=== PATIENT | male | born 1935 | race Caucasian/White ===

== ENCOUNTER 2017-12-07 09:47 | Emergency (ER) | payer MEDICARE, SELFPAY ==
[2017-12-07 09:55] VITALS: BP 156/90; PULSE 77; RESP 16; TEMP 36.6; O2SAT 97
--- NOTE | 2017-12-07 10:02 | NUR.NOTE ---
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, rx prescribed by PCP for itchy scalp was fluocinolone 0.01% solution- pt never picked up
--- NOTE | 2017-12-07 10:09 | ED.GENADUL ---
Disposition Clinical Impression: Scaly patch rash, Atopic dermatitis Disposition: HOME Condition: Good Instructions: Acute Rash (ED) Additional Instructions: Please take the medication as directed. Please follow-up as soon as possible with your egg candler for the lesion on your left scalp. Please stop itching her left scalp. If you notice any worsening of your symptoms, or any new symptoms such as vomiting, diarrhea, fever, chills, shortness of breath, chest pain, numbness, weakness, or fainting , please return immediately to the emergency department for reevaluation. Please follow up with your primary care provider as soon as possible for reassessment and reevaluation. As always, it was a pleasure participating in your medical care today. Prescriptions: Hydrocortisone [Hydrocortisone 2.5% Lotion] 60 ml TP BID 14 Days #1 btl Referrals: Ashkan Eason MD [MD CONSULTING PHYSICIAN] - Medical Decision Making - Medical Decision Making This is a pleasant 82-year-old male who presents for rash on his left temporal region. It is been present for the last month, he was seen by his PCP a month ago for this and prescribed a steroid cream but it was too expensive so he did not take it. Currently the patient's symptoms to look like a very mild atopic dermatitis. There is one lesion though by his left ear that is concerning for basal cell carcinoma. We will give the patient a cheaper slightly lower concentration of steroid cream for topical application, and also dermatology referral for biopsy and evaluation of potential basal cell carcinoma. No evidence of shingles, significant bacterial superinfection, or other abnormalities. No signs of Hernández's palsy. Patient will be discharged home with close follow-up with his PCP. I have extensively reviewed the treatment plan and discharge instructions with the patient. I have addressed all patient concerns at this time. The patient was made aware of what symptoms to monitor for that would warrant a return to the emergency department. Discussed the plan with the patient, they demonstrate verbal understanding and agreement with our assessment and plan at this time. History of Present Illness - General Chief complaint: RashLesion Stated complaint: HEAD PAIN Time Seen by Provider: 12/07/17 10:08 - History of Present Illness Initial comments: This is an 82-year-old male with a past medical history of diabetes, hypertension, hyperlipidemia, myocardial infarction Plavix use. He presents today for evaluation of rash. He states that one month ago he was seen by his primary care provider for small amount of itching on his temporal region. He is prescribed a steroid ointment, however it was $120 and he did not take it secondary to the walls. His symptoms have continued over the past month. They have been mild in nature. He mainly complains of itchiness over the left temporal scalp with small little bumps. There is also a small lesion on the temporal scalp just above the ear, which she states has been having some discharge lately. He denies any fever, chills, vision changes, headache, chest pain shortness of breath vomiting diarrhea numbness tingling or weakness. He has no additional complaints at this time. - Related Data metFORMIN [Glucophage] 500 mg PO BID 09/02/12 Aspirin [Aspir-Low] 81 mg PO DAILY 09/05/15 Ibuprofen 600 - 800 mg PO PRN PRN 09/05/15 Tamsulosin HCl 0.4 mg PO DAILY #90 tab-cap 10/17/15 Clopidogrel Bisulfate [Plavix] 75 mg PO DAILY 04/12/17 Lisinopril 20 mg PO DAILY 04/12/17 Metoprolol [Lopressor] 100 mg PO DAILY 04/12/17 Guaifenesin/Codeine Phosphate [Codeine-Guaifen 10-100 mg/5 ml] 5 ml PO Q4H PRN #120 liquid 05/17/17 Atorvastatin [Lipitor] 40 mg PO DAILY 09/20/17 Doxycycline Hyclate 100 mg PO BID #14 tablet 09/20/17 Erythromycin Ophth Oint [Ilotycin Ophth Oint] 1 gm OP DIRECTED #1 tube 09/20/17 Benzonatate [Tessalon Perles] 200 mg PO TID PRN #10 cap 10/11/17 Hydrocortisone [Hydrocortisone 2.5% Lotion] 60 ml TP BID 14 Days #1 btl 12/07/17 Allergies Allergy/AdvReac Type Severity Reaction Status Date / Time No Known Allergies Allergy Unverified 12/07/17 09:57 Review of Systems Other: 10 point review of systems was performed, pertinent positives and negatives are noted in the history of present illness. Past Medical History - Past Medical History Medical history: diabetes, hyperlipidemia, hypertension Surgical history: herniorraphy, vascular surgery (AAA stent) - Social History Alcohol use: none Drug use: none General Exam - Other Other exam information: 1.Const: Well-nourished, Well-developed, appearing stated age 2.Eyes: PERRL, no conjunctival injection, and symmetrical lids. 3.ENT: Atraumatic external nose and ears. Moist MM. Neck: Symmetric, trachea midline, No thyromegaly. Tympanic membranes are normal. No pain or tenderness. 4.CVS: +S1/S2, No murmurs or gallops. Peripheral pulses 2+ and equal in all extremities. Brisk capillary refill in all extremities. 5.RESP: Unlabored respiratory effort. Clear to auscultation bilaterally. No wheezes rales or rhonchi 6.GI: Soft, Nontender/Nondistended, No hepatosplenomegaly. No guarding or rebound. 7.MSK: Normocephalic/Atraumatic, Extremities w/o deformity or ttp No cyanosis or clubbing, Normal movement of all extremities 8.Skin: Warm, Dry. Patient's left scalp over the temporal region demonstrates very minimal redness. No significant scaling. No evidence suggestive of a severe fungal infection. There are some very small bumps and lesions in this area, none of which are draining or erythematous. No discharge. These bumps are roughly 2-3 mm on palpation. He has roughly 3-4 total. He also does have a small lesion on the left temporal region just superior to the left ear which does appear scabbed, with no drainage at this time. Symptoms are concerning for basal cell carcinoma. Patient demonstrates no evidence of shingles, vesicles, staph scalded skin syndrome, or other abnormalities. 9.Neuro: supervisor pre wave II-XII grossly intact. Sensation grossly intact, no focal neurologic deficits. 10.Psych: (AAO) x3. Appropriate mood and affect Course Vital Signs - 24 hr 12/07/17 09:55 Temperature 36.6 C Pulse 77 Respiratory 16 Rate Blood Pressure 156/90 Pulse Oximetry 97
--- NOTE | 2017-12-07 10:12 | ED.GENADUL_ITS ---
Disposition Clinical Impression: Scaly patch rash, Atopic dermatitis Disposition: HOME Condition: Good Instructions: Acute Rash (ED) Additional Instructions: Please take the medication as directed. Please follow-up as soon as possible with your horse stud worker for the lesion on your left scalp. Please stop itching her left scalp. If you notice any worsening of your symptoms, or any new symptoms such as vomiting, diarrhea, fever, chills, shortness of breath, chest pain, numbness, weakness, or fainting , please return immediately to the emergency department for reevaluation. Please follow up with your primary care provider as soon as possible for reassessment and reevaluation. As always, it was a pleasure participating in your medical care today. Prescriptions: Hydrocortisone [Hydrocortisone 2.5% Lotion] 60 ml TP BID 14 Days #1 btl Referrals: Ashkan Eason MD [MD CONSULTING PHYSICIAN] - Medical Decision Making - Medical Decision Making This is a pleasant 82-year-old male who presents for rash on his left temporal region. It is been present for the last month, he was seen by his PCP a month ago for this and prescribed a steroid cream but it was too expensive so he did not take it. Currently the patient's symptoms to look like a very mild atopic dermatitis. There is one lesion though by his left ear that is concerning for basal cell carcinoma. We will give the patient a cheaper slightly lower concentration of steroid cream for topical application, and also dermatology referral for biopsy and evaluation of potential basal cell carcinoma. No evidence of shingles, significant bacterial superinfection, or other abnormalities. No signs of Hernández's palsy. Patient will be discharged home with close follow-up with his PCP. I have extensively reviewed the treatment plan and discharge instructions with the patient. I have addressed all patient concerns at this time. The patient was made aware of what symptoms to monitor for that would warrant a return to the emergency department. Discussed the plan with the patient, they demonstrate verbal understanding and agreement with our assessment and plan at this time. History of Present Illness - General Chief complaint: RashLesion Stated complaint: HEAD PAIN Time Seen by Provider: 12/07/17 10:08 - History of Present Illness Initial comments: This is an 82-year-old male with a past medical history of diabetes, hypertension, hyperlipidemia, myocardial infarction Plavix use. He presents today for evaluation of rash. He states that one month ago he was seen by his primary care provider for small amount of itching on his temporal region. He is prescribed a steroid ointment, however it was $120 and he did not take it secondary to the walls. His symptoms have continued over the past month. They have been mild in nature. He mainly complains of itchiness over the left temporal scalp with small little bumps. There is also a small lesion on the temporal scalp just above the ear, which she states has been having some discharge lately. He denies any fever, chills, vision changes, headache, chest pain shortness of breath vomiting diarrhea numbness tingling or weakness. He has no additional complaints at this time. - Related Data metFORMIN [Glucophage] 500 mg PO BID 09/02/12 Aspirin [Aspir-Low] 81 mg PO DAILY 09/05/15 Ibuprofen 600 - 800 mg PO PRN PRN 09/05/15 Tamsulosin HCl 0.4 mg PO DAILY #90 tab-cap 10/17/15 Clopidogrel Bisulfate [Plavix] 75 mg PO DAILY 04/12/17 Lisinopril 20 mg PO DAILY 04/12/17 Metoprolol [Lopressor] 100 mg PO DAILY 04/12/17 Guaifenesin/Codeine Phosphate [Codeine-Guaifen 10-100 mg/5 ml] 5 ml PO Q4H PRN # 120 liquid 05/17/17 Atorvastatin [Lipitor] 40 mg PO DAILY 09/20/17 Doxycycline Hyclate 100 mg PO BID #14 tablet 09/20/17 Erythromycin Ophth Oint [Ilotycin Ophth Oint] 1 gm OP DIRECTED #1 tube Benzonatate [Tessalon Perles] 200 mg PO TID PRN #10 cap 10/11/17 Hydrocortisone [Hydrocortisone 2.5% Lotion] 60 ml TP BID 14 Days #1 btl Allergies Allergy/AdvReac Type Severity Reaction Status Date / Time No Known Allergies Allergy Unverified 12/07/17 09:57 Review of Systems Other: 10 point review of systems was performed, pertinent positives and negatives are noted in the history of present illness. Past Medical History - Past Medical History Medical history: diabetes, hyperlipidemia, hypertension Surgical history: herniorraphy, vascular surgery (AAA stent) - Social History Alcohol use: none Drug use: none General Exam - Other Other exam information: 1.Const: Well-nourished, Well-developed, appearing stated age 2.Eyes: PERRL, no conjunctival injection, and symmetrical lids. 3.ENT: Atraumatic external nose and ears. Moist MM. Neck: Symmetric, trachea midline, No thyromegaly. Tympanic membranes are normal. No pain or tenderness. 4.CVS: +S1/S2, No murmurs or gallops. Peripheral pulses 2+ and equal in all extremities. Brisk capillary refill in all extremities. 5.RESP: Unlabored respiratory effort. Clear to auscultation bilaterally. No wheezes rales or rhonchi 6.GI: Soft, Nontender/Nondistended, No hepatosplenomegaly. No guarding or rebound. 7.MSK: Normocephalic/Atraumatic, Extremities w/o deformity or ttp No cyanosis or clubbing, Normal movement of all extremities 8.Skin: Warm, Dry. Patient's left scalp over the temporal region demonstrates very minimal redness. No significant scaling. No evidence suggestive of a severe fungal infection. There are some very small bumps and lesions in this area, none of which are draining or erythematous. No discharge. These bumps are roughly 2-3 mm on palpation. He has roughly 3-4 total. He also does have a small lesion on the left temporal region just superior to the left ear which does appear scabbed, with no drainage at this time. Symptoms are concerning for basal cell carcinoma. Patient demonstrates no evidence of shingles, vesicles, staph scalded skin syndrome, or other abnormalities. 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 Sensation grossly intact, no focal neurologic deficits. 10.Psych: (AAO) x3. Appropriate mood and affect Course Vital Signs - 24 hr 12/07/17 09:55 Temperature 36.6 C Pulse 77 Respiratory 16 Rate Blood Pressure 156/90 Pulse Oximetry 97
[2017-12-07 10:22] VITALS: BP 156/90; PULSE 77; RESP 16; TEMP 36.6; O2SAT 97
--- NOTE | 2017-12-08 10:22 | PDOC.ERCMPRO ---
Care Management Progress Note 12/08-Dr. Stafford requested assistance with a dermatology (Dr. Eason) appt in one month for left temporal lesion. Referral faxed to [facility] (Dr. Moise is PCP) this am, requesting their practice to refer to Dr. Eason.
== END 2017-12-07 10:22 | disposition home or self-care (01) ==
PROVIDERS: Emergency Provider Student in an Organized Health Care Education/Training Program; PCP Family Medicine
DX: L98.9 Disorder of the skin and subcutaneous tissue, unspecified (principal); L20.9 Atopic dermatitis, unspecified; E11.9 Type 2 diabetes mellitus without complications; Z79.84 Long term (current) use of oral hypoglycemic drugs; I10 Essential (primary) hypertension
CPT/HCPCS: 99283 ×2

== ENCOUNTER 2018-05-11 17:34 | Outpatient (REF) | payer MEDICARE, SELFPAY ==
[2018-05-11 18:59] LABS: HCT 44.2 % (40.0-50.0); HGB 14.6 g/dL (13.5-17.5); Mean Corpuscular Hemoglobin 30.3 pg (27.0-33.0); Mean Corpuscular Volume 91.7 fL (80-95); Mean Platelet Volume 11.3 fL (8.0-11.0); Platelet Count 198 x1000/uL (130-400); RBC 4.82 m/cumm (4.50-6.00); RBC Distribution Width 11.9 % (11.8-14.1); White Blood Cell Count 9.13 k/cumm (4.4-10.8)
[2018-05-11 19:14] LABS: ALT 55 U/L (12-78); AST 44 U/L (15-37); Albumin 3.7 g/dL (3.4-5.0); Alkaline Phosphatase 99 U/L (46-116); Anion Gap 9.9 mmol/L (3-11); BUN 25 mg/dL (7-18); Bilirubin, Total 0.9 mg/dL (0.2-1.0); CO2 30.1 mmol/L (21.0-32.0); CREATININE 1.69 mg/dL (0.70-1.30); Calcium 9.4 mg/dL (8.5-10.1); Chloride 102 mmol/L (98-107); Estimated GFR 39.14 (mL/min/1.73m2); Glucose 133 mg/dL (70-100); Magnesium 1.6 mg/dL (1.8-2.4); PHOSPHORUS 3.8 mg/dL (2.6-4.7); Potassium 4.3 mmol/L (3.5-5.1); Sodium 142 mmol/L (136-145)
[2018-05-11 19:20] LABS: COMMENT (LAB VIEW ONLY) 147.65 mg/dL
[2018-05-13 11:37] LABS: Parathyroid Hormone,Intact 108 pg/ml (19-88)
== END 2018-05-11 17:54 ==
LOC: NCHCN 17:34
PROVIDERS: PCP Family Medicine; Visit Provider Family Medicine
DX: E11.9 Type 2 diabetes mellitus without complications (principal); N18.3 Chronic kidney disease, stage 3 (moderate); K76.0 Fatty (change of) liver, not elsewhere classified; I25.5 Ischemic cardiomyopathy
CPT/HCPCS: 80053; 85027; 82043; 82570; 83735; 83970; 84100

== ENCOUNTER 2018-07-18 06:43 | Inpatient (IN) | payer MEDICARE, SELFPAY ==
[2018-07-18] VITALS (21 sets, daily range): BP systolic 123–209; BP diastolic 66–103; PULSE 47–58; RESP 13–20; TEMP 35.8–36.8; O2SAT 94–99
--- NOTE | 2018-07-18 06:53 | W.ED.GENAD ---
Discharge Plan Disposition Patient Disposition: [facility] INPATIENT Condition: Serious Discharge Details Chief Complaint: Abd Prob Clinical Impression: Diverticulitis of intestine with abscess Reason For Visit: DIVERTICULAR ABSCESS Admit Date/Time: 07/18/18 10:40 Admit Provider: Precious Quijano Attending Provider: Precious Quijano Primary Care Provider: Rolando Moise ED Provider: Han Whipple Discharge Data Discharge Date/Time-TO BE ENTERED AT DEPARTURE: 07/18/18 11:55 Medical Decision Making <Emanuel Osei MD - Last Filed: 07/20/18 11:58> Patient presents with worsening abdominal pain over the course of a week. He has distention and hyperactive bowel sounds. He does report passing gas and not having vomiting. He is diffusely tender on exam. He has a history of stented AAA repair but I doubt this is his issue given the timeframe. Partial bowel obstruction seems to be the most likely etiology. IV established and laboratory studies obtained. CT scan of the abdomen pelvis with IV and p.o. contrast ordered. Patient signed out to Dr. Whipple. <Han Whipple MD - Last Filed: 07/18/18 10:45> CT interpreted by radiology: IMPRESSION: 1. Diverticulosis and Bowel wall thickening along the rectosigmoid colon. Mild pericolonic inflammatory changes. 3.5 cm fluid collection within the colon consistent with diverticular abscess (4:62 No evidence of perforation or bleeding. Findings consistent with acute diverticulitis. 2. Status post aortic iliac bypass. [place] aorta 8.1 x 6.7 cm. 3. Broad-based disc bulge, facet hypertrophy, and ligament hypertrophy at L4/L5 consistent with spinal stenosis. Recommend MRI for further evaluation. Labs reviewed and leukocytosis and mild elevation of lactic acid noted. Patient was given IV fluid bolus. Hypomag noted. Mag 1g ordered. Results reviewed with the patient. I have ordered. Flagyl and Cipro IV. I called and spoke with Dr. Renae, I reviewed the case presentation and ED course as well as diagnostics with Dr. Renae, she plans to admit the patient and patient will likely need transfer to [facility] for interventional radiology draining. I called [facility] and no beds available for transfer. Patient to be admitted to [facility]. Bridging orders placed to floor. HPI <Emanuel Osei MD - Last Filed: 07/20/18 11:58> General Mode of arrival: ambulatory. Date/Time Provider Initiated Documentation: 07/18/18 06:51. Limitations to Documentation: no limitations. Information obtained by: patient. HPI Narrative: Patient presents with complaints of abdominal pain. He reports pain for over a week. It has been getting progressively worse. It seems more right-sided than left. His abdomen is becoming distended. He is passing gas but has not had a bowel movement in days. His appetite is okay. He is eating and drinking. He has not had vomiting. He has no difficulty urinating. He has had no fever. Related Data Home Medications Medication Instructions Recorded Confirmed metformin 500 mg PO BID 09/02/12 07/18/18 aspirin [Aspir-Low] 81 mg PO DAILY 09/05/15 07/18/18 ibuprofen 600 - 800 mg PO PRN PRN 09/05/15 07/18/18 tamsulosin 0.4 mg PO DAILY #90 tab-cap 10/17/15 07/18/18 clopidogrel [Plavix] 75 mg PO DAILY 04/12/17 07/18/18 lisinopril 20 mg PO DAILY 04/12/17 07/18/18 metoprolol tartrate 100 mg PO DAILY 04/12/17 07/18/18 atorvastatin [Lipitor] 40 mg PO DAILY 09/20/17 07/18/18 hydrocortisone 60 ml TOPICAL BID 14 Days #1 btl 12/07/17 07/18/18 Previous Rx's Medication Instructions Recorded hydrocortisone 60 ml TOPICAL BID 14 Days #1 btl 12/07/17 Allergies Allergy/AdvReac Type Severity Reaction Status Date / Time No Known Allergies Allergy Unverified 07/18/18 06:58 Review of Systems <Emanuel Osei MD - Last Filed: 07/20/18 11:58> Constitutional Denies chills, Denies fever(s), Denies headache(s), Denies poor appetite and Denies weakness Eyes Denies change in vision and Denies eye pain ENT Denies otalgia, Denies facial pain, Denies headache(s), Denies neck pain and Denies sore throat Cardiovascular Denies chest pain, Denies diaphoresis, Denies syncope, Denies edema and Denies dyspnea Respiratory Denies cough and Denies dyspnea Gastrointestinal Reports abdominal pain, Reports constipation, Denies diarrhea, Denies nausea and Denies vomiting Genitourinary Denies hematuria, Denies dysuria and Denies flank pain Musculoskeletal Denies back pain and Denies neck pain Integumentary/Breasts Denies rash Neurologic Denies syncope, Denies headache(s), Denies focal weakness and Denies weakness PFSH <Emanuel Osei MD - Last Filed: 07/20/18 11:58> Medical History Renal insufficiency (Chronic) Diverticulitis of large intestine with abscess (Acute) Phimosis (Acute) Diabetes mellitus (Chronic) HTN (hypertension) (Chronic) Hypercholesterolemia (Chronic) Myocardial infarct (Chronic) Surgical History S/P left hemicolectomy (Acute ~07/19/18) H/O phimosis (Acute) History of endovascular stent graft for abdominal aortic aneurysm (AAA) (Chronic) History of heart artery stent (Chronic) S/P hernia repair (Inactive) Social History Smoking/Tobacco Use Status: Former Tobacco Use Quit Date: 01/03/17 Tobacco: How many years used: 60 Alcohol Intake: current Alcohol Intake frequency: 0-2 drinks per day Alcohol type: beer Drug use: Never Substance use type: does not use Do you feel safe at home: Yes Do you feel safe in your relationship?: Yes Exam <Emanuel Osei MD - Last Filed: 07/20/18 11:58> Const General: cooperative, comfortable and no acute distress Orientation: alert and oriented x3 HENMT Head: normocephalic and atraumatic Mouth: moist mucous membranes Neck Neck: trachea midline and supple Resp Effort & Inspection: normal respiratory effort Auscultation: clear to auscultation bilaterally Cardio Rate: bradycardic Rhythm: regular rhythm Heart Sounds: S1 normal and S2 normal GI Inspection: distended Palpation: soft and tender (diffusely tender throughout) Percussion: tympanic to percussion Auscultation: hyperactive bowel sounds Male General Exam: No hernia Skin Rashes: no rashes Neuro General: alert, oriented x3, no focal motor deficits and CN's II-XI intact bilaterally Extrem General: no clubbing, cyanosis or edema Sign Out <Emanuel Osei MD - Last Filed: 07/20/18 11:58> Sign Out Data: Sign Out Comment: Signed out to Dr. Whipple to follow up on labs, scan and disposition. Last updated by Emanuel Osei MD at 07/18/18 08:32
--- NOTE | 2018-07-18 06:56 | ED.GENADUL_ITS ---
Discharge Plan Disposition Patient Disposition: [facility] INPATIENT Condition: Serious Discharge Details Chief Complaint: Abd Prob Clinical Impression: Diverticulitis of intestine with abscess Reason For Visit: DIVERTICULAR ABSCESS Admit Date/Time: 07/18/18 10:40 Admit Provider: Precious Quijano Attending Provider: Precious Quijano Primary Care Provider: Rolando Moise ED Provider: Han Whipple Discharge Data Discharge Date/Time-TO BE ENTERED AT DEPARTURE: 07/18/18 11:55 Medical Decision Making <Emanuel Osei MD - Last Filed: 07/20/18 11:58> Patient presents with worsening abdominal pain over the course of a week. He has distention and hyperactive bowel sounds. He does report passing gas and not having vomiting. He is diffusely tender on exam. He has a history of stented AAA repair but I doubt this is his issue given the timeframe. Partial bowel obstruction seems to be the most likely etiology. IV established and laboratory studies obtained. CT scan of the abdomen pelvis with IV and p.o. contrast ordered. Patient signed out to Dr. Whipple. <Han Whipple MD - Last Filed: 07/18/18 10:45> CT interpreted by radiology: IMPRESSION: 1. Diverticulosis and Bowel wall thickening along the rectosigmoid colon. Mild pericolonic inflammatory changes. 3.5 cm fluid collection within the colon consistent with diverticular abscess (4:62 No evidence of perforation or bleeding. Findings consistent with acute diverticulitis. 2. Status post aortic iliac bypass. [place] aorta 8.1 x 6.7 cm. 3. Broad-based disc bulge, facet hypertrophy, and ligament hypertrophy at L4/L5 consistent with spinal stenosis. Recommend MRI for further evaluation. Labs reviewed and leukocytosis and mild elevation of lactic acid noted. Patient was given IV fluid bolus. Hypomag noted. Mag 1g ordered. Results reviewed with the patient. I have ordered. Flagyl and Cipro IV. I called and spoke with Dr. Renae, I reviewed the case presentation and ED course as well as diagnostics with Dr. Renae, she plans to admit the patient and patient will likely need transfer to [facility] [place] for interventional radiology d raining. I called [facility] and no beds available for transfer. Patient to be admitted to [facility]. Bridging orders placed to floor. HPI <Emanuel Osei MD - Last Filed: 07/20/18 11:58> General Mode of arrival: ambulatory . Date/Time Provider Initiated Documentation: 07/18/18 06:51 . Limitations to Documentation: no limitations . Information obtained by: patient . HPI Narrative: Patient presents with complaints of abdominal pain. He reports pain for over a week. It has been getting progressively worse. It seems more right-sided than left. His abdomen is becoming distended. He is passing gas but has not had a bowel movement in days. His appetite is okay. He is eating and drinking. He has not had vomiting. He has no difficulty urinating. He has had no fever. Related Data Home Medications Medication Instructions Recorded Confirmed metformin 500 mg PO BID 09/02/12 07/18/18 aspirin [Aspir-Low] 81 mg PO DAILY 09/05/15 07/18/18 ibuprofen 600 - 800 mg PO PRN PRN 09/05/15 07/18/18 tamsulosin 0.4 mg PO DAILY #90 tab-cap 10/17/15 07/18/18 clopidogrel [Plavix] 75 mg PO DAILY 04/12/17 07/18/18 lisinopril 20 mg PO DAILY 04/12/17 07/18/18 metoprolol tartrate 100 mg PO DAILY 04/12/17 07/18/18 atorvastatin [Lipitor] 40 mg PO DAILY 09/20/17 07/18/18 hydrocortisone 60 ml TOPICAL BID 14 Days #1 btl 12/07/17 07/18/18 Previous Rx's Medication Instructions Recorded hydrocortisone 60 ml TOPICAL BID 14 Days #1 btl 12/07/17 Allergies Allergy/AdvReac Type Severity Reaction Status Date / Time No Known Allergies Allergy Unverified 07/18/18 06:58 Review of Systems <Emanuel Osei MD - Last Filed: 07/20/18 11:58> Constitutional Denies chills, Denies fever(s), Denies headache(s), Denies poor appetite and Denies weakness Eyes Denies change in vision and Denies eye pain ENT Denies otalgia, Denies facial pain, Denies headache(s), Denies neck pain and Denies sore throat Cardiovascular Denies chest pain, Denies diaphoresis, Denies syncope, Denies edema and Denies dyspnea Respiratory Denies cough and Denies dyspnea Gastrointestinal Reports abdominal pain, Reports constipation, Denies diarrhea, Denies nausea and Denies vomiting Genitourinary Denies hematuria, Denies dysuria and Denies flank pain Musculoskeletal Denies back pain and Denies neck pain Integumentary/Breasts Denies rash Neurologic Denies syncope, Denies headache(s), Denies focal weakness and Denies weakness PFSH <Emanuel Osei MD - Last Filed: 07/20/18 11:58> Medical History Renal insufficiency (Chronic) Diverticulitis of large intestine with abscess (Acute) Phimosis (Acute) Diabetes mellitus (Chronic) HTN (hypertension) (Chronic) Hypercholesterolemia (Chronic) Myocardial infarct (Chronic) Surgical History S/P left hemicolectomy (Acute ~07/19/18) H/O phimosis (Acute) History of endovascular stent graft for abdominal aortic aneurysm (AAA) (Chronic) History of heart artery stent (Chronic) S/P hernia repair (Inactive) Social History Smoking/Tobacco Use Status: Former Tobacco Use Quit Date: 01/03/17 Tobacco: How many years used: 60 Alcohol Intake: current Alcohol Intake frequency: 0-2 drinks per day Alcohol type: beer Drug use: Never Substance use type: does not use Do you feel safe at home: Yes Do you feel safe in your relationship?: Yes Exam <Emanuel Osei MD - Last Filed: 07/20/18 11:58> Const General: cooperative, comfortable and no acute distress Orientation: alert and oriented x3 HENMT Head: normocephalic and atraumatic Mouth: moist mucous membranes Neck Neck: trachea midline and supple Resp Effort & Inspection: normal respiratory effort Auscultation: clear to auscultation bilaterally Cardio Rate: bradycardic Rhythm: regular rhythm Heart Sounds: S1 normal and S2 normal GI Inspection: distended Palpation: soft and tender (diffusely tender throughout) Percussion: tympanic to percussion Auscultation: hyperactive bowel sounds Male General Exam: No hernia Skin Rashes: no rashes Neuro General: alert, oriented x3, no focal motor deficits and CN's II-XI intact bilaterally Extrem General: no clubbing, cyanosis or edema Sign Out <Emanuel Osei MD - Last Filed: 07/20/18 11:58> Sign Out Data: Sign Out Comment: Signed out to Dr. Whipple to follow up on labs, scan and disposition. Last updated by Emanuel Osei MD at 07/18/18 08:32
--- NOTE | 2018-07-18 07:17 | DI.CT_ITS ---
SYMPTOM/DIAGNOSIS: ABD PAIN, DISTENSION ABDOMEN AND PELVIC CT: CT scan of the abdomen and pelvis was performed following the uneventful administration of intravenous contrast material. Comparison examination is 04/12/11. No acute findings are seen in the lung bases. The liver is normal in size. No suspicious hepatic mass is seen. The portal, superior mesenteric and splenic veins are patent. The gallbladder is negative. There is no biliary ductal dilatation. The pancreas, spleen and adrenal glands are unremarkable. The kidneys show normal and symmetric enhancement. There are bilateral renal cysts. No solid renal mass or obstruction. There is a non obstructing calcification in the lower pole of the left kidney. The urinary bladder is intact. The reproductive organs are unremarkable. There is diverticulosis seen in the colon. There is bowel wall thickening and pericolonic inflammatory changes seen in the mid sigmoid colon consistent with acute diverticulitis. There is a 3.5 cm. fluid collection adjacent to this inflamed colon suspicious for an abscess. No free air is seen to suggest perforation. The remainder of the bowel shows no acute abnormality. No findings to suggest an acute appendicitis are present. There is again seen an infrarenal abdominal aortic aneurysm with an endovascular stent in place. The aneurysm measures up to 8.3 cm. in AP diameter. No significant abdominal or pelvic adenopathy is appreciated. Degenerative changes are seen in the spine. The findings include disc bulges at L 3-4 through L 5-S 1 resulting in multi level central spinal canal stenosis which is moderate to severe. IMPRESSION: Findings consistent with acute diverticulitis of the sigmoid colon. No evidence of perforation. There is a 3.5 cm. fluid collection adjacent to the inflamed sigmoid colon suggestive of a diverticular abscess.
[2018-07-18] MEDS: Lactated Ringers 1,000 ML 125 ML IV (07:30)
[2018-07-18 07:35] LABS: Abs Immature Grans 0.03 k/cumm (0.0-0.09); HCT 41.4 % (40.0-50.0); HGB 13.9 g/dL (13.5-17.5); Mean Corp. HGB Concentration 33.6 g/dL (32.0-36.0); Mean Corpuscular Volume 92.2 fL (80-95); Mean Platelet Volume 10.9 fL (8.0-11.0); Platelet Count 176 x1000/uL (130-400); RBC 4.49 m/cumm (4.50-6.00); RBC Distribution Width 11.8 % (11.8-14.1); White Blood Cell Count 14.86 k/cumm (4.4-10.8)
[2018-07-18 07:52] LABS: ALT 26 U/L (12-78); AST 19 U/L (15-37); Albumin 3.3 g/dL (3.4-5.0); Alkaline Phosphatase 125 U/L (46-116); Anion Gap 9.7 mmol/L (3-11); BUN 19 mg/dL (7-18); Bilirubin, Total 0.6 mg/dL (0.2-1.0); CO2 25.3 mmol/L (21.0-32.0); CREATININE 1.47 mg/dL (0.70-1.30); Calcium 8.8 mg/dL (8.5-10.1); Chloride 103 mmol/L (98-107); Estimated GFR 45.98 (mL/min/1.73m2); Glucose 188 mg/dL (70-100); Lipase 135 U/L (73-393); Magnesium 1.5 mg/dL (1.8-2.4); Potassium 3.7 mmol/L (3.5-5.1); Sodium 138 mmol/L (136-145); Total Protein 6.8 g/dL (6.4-8.2)
[2018-07-18 07:58] LABS: Absolute Eosinophil Count 0.74 k/cumm (0.0-0.7); Absolute Lymphocyte Count 1.19 k/cumm (1.2-3.4); Absolute Monocyte Count 1.34 k/cumm (0.11-0.7); Absolute Neutrophil Count 11.59 k/cumm (1.2-6.7); Diff Comment Manual Differential; RBC Morphology Normal
[2018-07-18 08:11] LABS: Lactate-non-spesis 2.3 mmol/l (0.6-1.4)
[2018-07-18] MEDS: MAGNESIUM SULFATE 1 GM/100 ML BAG IVPB (08:32)
[2018-07-18] MEDS: Normal Saline 1,000 ML 1000 ML IV (08:32)
[2018-07-18] MEDS: Omnipaque 350 MG/ML 100 ML BTL IJ (08:38)
[2018-07-18] MEDS: Normal Saline Flush 10 ML SYR IVP (08:38)
--- NOTE | 2018-07-18 09:07 | DI.VRAD_ITS ---
Addendum created by Mary Reyes MD on 07/18/2018 9:08:46 AM EDT THIS REPORT CONTAINS FINDINGS THAT MAY BE CRITICAL TO PATIENT CARE. The findings were verbally communicated via telephone conference with Dr. Whipple at 9:08 AM EDT on 07/18/2018. The findings were acknowledged and understood. Initial report created on 07/18/2018 9:06:58 AM EDT EXAM: CT Abdomen and Pelvis With Contrast EXAM DATE/TIME: 07/18/2018 7:38 AM CLINICAL HISTORY: 82 years old, male; Pain; Abdominal pain; Other: Distension; Patient HX: Abdominal pain/ distension. ; Additional info: Patient refused to answer questions about personal HX. TECHNIQUE: Axial computed tomography images of the abdomen and pelvis with intravenous contrast. All CT scans at this facility use at least one of these dose optimization techniques: automated exposure control; mA and/or kV adjustment per patient size (includes targeted exams where dose is matched to clinical indication); or iterative reconstruction. Coronal and sagittal reformatted images were created and reviewed. CONTRAST: Contrast Material: 100 ml of omnipaque 350; Contrast Route: iv COMPARISON: No relevant prior studies available. FINDINGS: Lower thorax: Coronary artery calcifications may indicate coronary artery disease. There is calcification of the aortic valve annulus. There is calcification of the mitral valve annulus. ABDOMEN: Liver: Normal. No mass. Gallbladder and bile ducts: Normal. No calcified stones. No ductal dilation. Pancreas: Pancreatic atrophy Spleen: Normal. No splenomegaly. Adrenals: Normal. No mass. Kidneys and ureters: Bilateral renal cysts. Largest on the right 17 mm Bilateral renal atrophy Stomach and bowel: Diverticulosis and Bowel wall thickening along the rectosigmoid colon. Mild pericolonic inflammatory changes. 3.5 cm fluid collection within the colon consistent with diverticular abscess (4:62 No evidence of perforation or bleeding. Findings consistent with acute diverticulitis. Appendix: No evidence of appendicitis. PELVIS: Bladder: Unremarkable as visualized. Reproductive: Unremarkable as visualized. ABDOMEN and PELVIS: Intraperitoneal space: Normal. No free air. No significant fluid collection. Bones/joints: No acute fracture. No dislocation. Broad-based disc bulge, facet hypertrophy, and ligament hypertrophy at L4/L5 consistent with spinal stenosis. Soft tissues: Unremarkable. Vasculature: Status post aortic iliac bypass. [place] aorta 8.1 x 6.7 cm. Lymph nodes: Normal. No enlarged lymph nodes. IMPRESSION: 1. Diverticulosis and Bowel wall thickening along the rectosigmoid colon. Mild pericolonic inflammatory changes. 3.5 cm fluid collection within the colon consistent with diverticular abscess (4:62 No evidence of perforation or bleeding. Findings consistent with acute diverticulitis. 2. Status post aortic iliac bypass. [place] aorta 8.1 x 6.7 cm. 3. Broad-based disc bulge, facet hypertrophy, and ligament hypertrophy at L4/L5 consistent with spinal stenosis. Recommend MRI for further evaluation. Dictated and Authenticated by: Mary Reyes MD. Ordering:ROCK Castellanos MD
[2018-07-18] MEDS: CIPROFLOXACIN 400 MG/200 ML BAG 200 MG IVPB ×2 (10:05→21:08)
[2018-07-18] MEDS: MetroNIDAZOLE 500 MG/100 ML BAG 100 MG IVPB ×2 (11:10→19:21)
--- NOTE | 2018-07-18 12:27 | W.PM.HP.N ---
Date of service: 07/18/18 Time of Service: 11:30 Assessment and Plan (1) Diverticulitis of large intestine with abscess: Current visit: Yes Status: Acute A\\ Diverticulitis with 3.5 cm abscess P\\ Discuss case with [place] [facility] [place] Friday IV antibiotics Clear liquids as tolerated IV tylenol and IV morphine for pain as needed Recheck labs in am DVT progilaxis- SCD's and Lovenox Gastric ulcer prophilaxis- Pepcid BID Qualifiers: Diverticulitis bleeding: without bleeding Qualified Code(s): K57.20 - Diverticulitis of large intestine with perforation and abscess without bleeding (2) Diabetes: Current visit: Yes Status: Chronic P\\ Place patient on insulin sliding scale and check blood sugars ACHS Hold Metformin for now Qualifiers: Diabetes mellitus type: type 2 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 use: without termite control service representative use Diabetes mellitus complication status: with kidney complications Diabetes mellitus complication detail: with chronic kidney disease Chronic kidney disease stage: stage 2 (mild) Qualified Code(s): E11.22 - Type 2 diabetes mellitus with diabetic chronic kidney disease; N18.2 - Chronic kidney disease, stage 2 (mild) (3) Hypertension: Current visit: Yes Status: Chronic A\\ Hypertensive with low pulse Normally on Metoprolol 100 mg daily and Lisinopril 20 mg daily Discussed briefly with Hospitalist P\\ Due to low pulse will start with Metoprolol 25 mg BID and slowly titrate up as tolerated to 50 BID Continue Lisinopril Add Amlodipine while in the hospital 5 mg daily Qualifiers: Hypertension type: unspecified Qualified Code(s): I10 - Essential (primary) hypertension (4) Cardiovascular disease: Current visit: Yes Status: Acute A\\ Hx of AAA repair Mild Cardiomyopathy on ECHO in 2016 P\\ Hold Plavix due to potential for procedure [place] [facility] [place] Lovenox 40 mg SQ daily. Switch back to plavix once procedure is done (5) Renal insufficiency: Current visit: Yes Status: Chronic Chronic from looking at his labs. Seems to be at baseline Monitor Cr and BUN Monitor weight History of Present Illness Chief Complaint: LLQ abdominal pain/Constipation Consults Consult date: 07/18/18 Requesting physician: Han Whipple Narrative: Mr. Thompson is a pleasant 82 year old man who started having constipation as well as LLQ pain about 4 weeks ago. he did not go to see his Primary Care Physician. He came to the ER last night due to worsening abdominal pain and constipation. He did have 2 liquid stools once in the ER. Workup in the ER revealed a slight increase in his WBC count, hypertension and CT scan showed Diverticulitis with an abscess. [facility] stated that it was an intraluminal abscess. To my review the abscess was extraluminal. After discussing the findings and treatment plan which would include patient would possible need to be transported [place] [facility] [place], patient and wanted to go to [facility] [place]. Whipple spoke to them and they did not have any beds. This was discussed with patient and his and they agreed to admission here. He denies any chest pain or shortness of breath. He does have a history of heart disease and an endovascular AAA repair. LAst ECHO was in 2017 showed mild cardiomyopathy and EF of 45%. Patient is hypertensive in the ER with a low pulse. Review of Systems Constitutional Denies chills, Denies fever(s) and Denies night sweats Cardiovascular Denies chest pain, Denies chest pain at rest, Denies chest pain with activity, Denies rapid heart rate, Denies edema, Denies palpitations, Denies dyspnea and Denies dyspnea on exertion Respiratory Denies chest congestion, Denies cough, Denies dyspnea and Denies dyspnea on exertion Gastrointestinal Reports as per HPI Genitourinary Denies urinary frequency, Denies urinary hesitancy and Denies urinary incontinence Endocrine Reports system reviewed and no additional complaints, except as docu and Denies palpitations Hematologic/Lymphatic Reports easy bleeding (on plavix) [facility] Medical History Diabetes mellitus (Chronic) HTN (hypertension) (Chronic) Hypercholesterolemia (Chronic) Myocardial infarct (Chronic) Surgical History H/O phimosis (Acute) History of endovascular stent graft for abdominal aortic aneurysm (AAA) (Chronic) History of heart artery stent (Chronic) S/P hernia repair (Inactive) Social History Smoking/Tobacco Use Status: Former Tobacco Use Quit Date: 01/03/17 Tobacco: How many years used: 60 Alcohol Intake: current Alcohol Intake frequency: 0-2 drinks per day Alcohol type: beer Drug use: Never Substance use type: does not use Do you feel safe at home: Yes Do you feel safe in your relationship?: Yes Meds Home Medications Medication Instructions Recorded Confirmed Type metformin 500 mg PO BID 09/02/12 07/18/18 History aspirin [Aspir-Low] 81 mg PO DAILY 09/05/15 07/18/18 History ibuprofen 600 - 800 mg PO PRN PRN 09/05/15 07/18/18 History tamsulosin 0.4 mg PO DAILY #90 tab-cap 10/17/15 07/18/18 History clopidogrel [Plavix] 75 mg PO DAILY 04/12/17 07/18/18 History lisinopril 20 mg PO DAILY 04/12/17 07/18/18 History metoprolol tartrate 100 mg PO DAILY 04/12/17 07/18/18 History atorvastatin [Lipitor] 40 mg PO DAILY 09/20/17 07/18/18 History hydrocortisone 60 ml TOPICAL BID 14 Days #1 btl 12/07/17 07/18/18 Rx Allergies Allergy/AdvReac Type Severity Reaction Status Date / Time No Known Allergies Allergy Unverified 07/18/18 06:58 Exam Const General: cooperative, comfortable and no acute distress Orientation: alert and oriented x3 Eyes Pupils: PERRL Resp Effort & Inspection: normal respiratory effort Auscultation: clear to auscultation bilaterally Cardio Rate: regular rate Rhythm: regular rhythm Heart Sounds: no gallops, no murmurs and no rubs GI Inspection: normal to inspection and scar (well healed) Palpation: soft, no hepatosplenomegaly and nontender Auscultation: normal bowel sounds General: deferred Extrem General: no edema Results Labs : 07/18/18 07:10 07/18/18 07:10 Laboratory Results - last 24 hr 07/18/18 07/18/18 07/18/18 07:10 07:10 08:08 WBC 14.86 H RBC 4.49 L Hgb 13.9 Hct 41.4 MCV 92.2 MCH 31.0 MCHC 33.6 RDW 11.8 Plt Count 176 MPV 10.9 Immature Gran % 0.0 Neutrophils % 78.0 Lymphocytes % 8.0 Monocytes % 9.0 Eosinophils % 5.0 Basophils % 0.0 Absolute Neutrophils 11.59 H Absolute Lymphocytes 1.19 L Absolute Monocytes 1.34 H Absolute Eosinophils 0.74 H Absolute Basophils 0.00 Differential Comment Manual differential RBC Morphology Normal Sodium 138 Potassium 3.7 Chloride 103 Carbon Dioxide 25.3 Anion Gap 9.7 BUN 19 H Creatinine 1.47 H Estimated GFR/1.73 m2 45.98 Glucose 188 H Lactate 2.3 H Calcium 8.8 Magnesium 1.5 L Total Bilirubin 0.6 AST 19 ALT 26 Alkaline Phosphatase 125 H Total Protein 6.8 Albumin 3.3 L Lipase 135 Last Vital Signs Temp 97.5 F L 07/18/18 11:54 Pulse 55 L 07/18/18 11:54 Resp 18 07/18/18 11:54 BP 209/103 H 07/18/18 11:54 Pulse Ox 97 07/18/18 11:54
--- NOTE | 2018-07-18 12:43 | HPE_ITS ---
Date of service: 07/18/18 Time of Service: 11:30 Assessment and Plan (1) Diverticulitis of large intestine with abscess: Current visit: Yes Status: Acute A\\ Diverticulitis with 3.5 cm abscess P\\ Discuss case with IR at [facility] for possible drainage proceedure on Friday IV antibiotics Clear liquids as tolerated IV tylenol and IV morphine for pain as needed Recheck labs in am DVT progilaxis- SCD's and Lovenox Gastric ulcer prophilaxis- Pepcid BID Qualifiers: Diverticulitis bleeding: without bleeding Qualified Code(s): K57.20 - Diverticulitis of large intestine with perforation and abscess without bleeding (2) Diabetes: Current visit: Yes Status: Chronic P\\ Place patient on insulin sliding scale and check blood sugars ACHS Hold Metformin for now Qualifiers: Diabetes mellitus type: type 2 Diabetes 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 insulin use: without termite control representative use Diabetes mellitus complication status: with kidney complications Diabetes mellitus complication detail: with chronic kidney disease Chronic kidney disease stage: stage 2 (mild) Qualified Code(s): E11.22 - Type 2 diabetes mellitus with diabetic chronic kidney disease; N18.2 - Chronic kidney disease, stage 2 (mild) (3) Hypertension: Current visit: Yes Status: Chronic A\\ Hypertensive with low pulse Normally on Metoprolol 100 mg daily and Lisinopril 20 mg daily Discussed briefly with Hospitalist P\\ Due to low pulse will start with Metoprolol 25 mg BID and slowly titrate up as tolerated to 50 BID Continue Lisinopril Add Amlodipine while in the hospital 5 mg daily Qualifiers: Hypertension type: unspecified Qualified Code(s): I10 - Essential (primary) hypertension (4) Cardiovascular disease: Current visit: Yes Status: Acute A\\ Hx of AAA repair Mild Cardiomyopathy on ECHO in 2016 P\\ Hold Plavix due to potential for procedure at [facility] on Friday Lovenox 40 mg SQ daily. Switch back to plavix once procedure is done (5) Renal insufficiency: Current visit: Yes Status: Chronic Chronic from looking at his labs. Seems to be at baseline Monitor Cr and BUN Monitor weight History of Present Illness Chief Complaint: LLQ abdominal pain/Constipation Consults Consult date: 07/18/18 Requesting physician: Han Whipple Narrative: Mr. Thompson is a pleasant 82 year old man who started having constipation as well as LLQ pain about 4 weeks ago. he did not go to see his Primary Care Physician. He came to the ER last night due to worsening abdominal pain and constipation. He did have 2 liquid stools once in the ER. Workup in the ER revealed a slight increase in his WBC count, hypertension and CT scan showed Diverticulitis with an abscess. [facility] stated that it was an intraluminal abscess. To my review the abscess was extraluminal. After discussing the findings and treatment plan which would include patient would possible need to be transported to [facility] for IR drainage procedure, patient and wanted to go to [facility]. Dr. Whipple spoke to them and they did not have any beds. This was discussed with patient and his and they agreed to admission here. He denies any chest pain or shortness of breath. He does have a history of heart disease and an endovascular AAA repair. LAst ECHO was in 2017 showed mild cardiomyopathy and EF of 45%. Patient is hypertensive in the ER with a low pulse. Review of Systems Constitutional Denies chills, Denies fever(s) and Denies night sweats Cardiovascular Denies chest pain, Denies chest pain at rest, Denies chest pain with activity, Denies rapid heart rate, Denies edema, Denies palpitations, Denies dyspnea and Denies dyspnea on exertion Respiratory Denies chest congestion, Denies cough, Denies dyspnea and Denies dyspnea on exertion Gastrointestinal Reports as per HPI Genitourinary Denies urinary frequency, Denies urinary hesitancy and Denies urinary incontinence Endocrine Reports system reviewed and no additional complaints, except as docu and Denies palpitations Hematologic/Lymphatic Reports easy bleeding (on plavix) [facility] Medical History Diabetes mellitus (Chronic) HTN (hypertension) (Chronic) Hypercholesterolemia (Chronic) Myocardial infarct (Chronic) Surgical History H/O phimosis (Acute) History of endovascular stent graft for abdominal aortic aneurysm (AAA) (Chronic) History of heart artery stent (Chronic) S/P hernia repair (Inactive) Social History Smoking/Tobacco Use Status: Former Tobacco Use Quit Date: 01/03/17 Tobacco: How many years used: 60 Alcohol Intake: current Alcohol Intake frequency: 0-2 drinks per day Alcohol type: beer Drug use: Never Substance use type: does not use Do you feel safe at home: Yes Do you feel safe in your relationship?: Yes Meds Home Medications Medication Instructions Recorded Confirmed Type metformin 500 mg PO BID 09/02/12 07/18/18 History aspirin [Aspir-Low] 81 mg PO DAILY 09/05/15 07/18/18 History ibuprofen 600 - 800 mg PO PRN PRN 09/05/15 07/18/18 History tamsulosin 0.4 mg PO DAILY #90 tab-cap 10/17/15 07/18/18 History clopidogrel [Plavix] 75 mg PO DAILY 04/12/17 07/18/18 History lisinopril 20 mg PO DAILY 04/12/17 07/18/18 History metoprolol tartrate 100 mg PO DAILY 04/12/17 07/18/18 History atorvastatin [Lipitor] 40 mg PO DAILY 09/20/17 07/18/18 History hydrocortisone 60 ml TOPICAL BID 14 Days #1 btl 12/07/17 07/18/18 Rx Allergies Allergy/AdvReac Type Severity Reaction Status Date / Time No Known Allergies Allergy Unverified 07/18/18 06:58 Exam Const General: cooperative, comfortable and no acute distress Orientation: alert and oriented x3 Eyes Pupils: PERRL Resp Effort & Inspection: normal respiratory effort Auscultation: clear to auscultation bilaterally Cardio Rate: regular rate Rhythm: regular rhythm Heart Sounds: no gallops, no murmurs and no rubs GI Inspection: normal to inspection and scar (well healed) Palpation: soft, no hepatosplenomegaly and nontender Auscultation: normal bowel sounds General: deferred Extrem General: no edema Results Labs : 07/18/18 07:10 07/18/18 07:10 Laboratory Results - last 24 hr 07/18/18 07/18/18 07/18/18 07:10 07:10 08:08 WBC 14.86 H RBC 4.49 L Hgb 13.9 Hct 41.4 MCV 92.2 MCH 31.0 MCHC 33.6 RDW 11.8 Plt Count 176 MPV 10.9 Immature Gran % 0.0 Neutrophils % 78.0 Lymphocytes % 8.0 Monocytes % 9.0 Eosinophils % 5.0 Basophils % 0.0 Absolute Neutrophils 11.59 H Absolute Lymphocytes 1.19 L Absolute Monocytes 1.34 H Absolute Eosinophils 0.74 H Absolute Basophils 0.00 Differential Comment Manual differential RBC Morphology Normal Sodium 138 Potassium 3.7 Chloride 103 Carbon Dioxide 25.3 Anion Gap 9.7 BUN 19 H Creatinine 1.47 H Estimated GFR/1.73 m2 45.98 Glucose 188 H Lactate 2.3 H Calcium 8.8 Magnesium 1.5 L Total Bilirubin 0.6 AST 19 ALT 26 Alkaline Phosphatase 125 H Total Protein 6.8 Albumin 3.3 L Lipase 135 Last Vital Signs Temp 97.5 F L 07/18/18 11:54 Pulse 55 L 07/18/18 11:54 Resp 18 07/18/18 11:54 BP 209/103 H 07/18/18 11:54 Pulse Ox 97 07/18/18 11:54
[2018-07-18 12:57] LABS: Lactate-non-spesis 1.9 mmol/l (0.6-1.4)
[2018-07-18] MEDS: Metoprolol 25 MG TAB PO ×2 (13:01→19:21)
[2018-07-18] MEDS: amLODIPine 5 MG TAB PO (13:01)
[2018-07-18 13:07] LABS: Anion Gap 6.9 mmol/L (3-11); BUN 15 mg/dL (7-18); CO2 27.1 mmol/L (21.0-32.0); CREATININE 1.29 mg/dL (0.70-1.30); Calcium 8.6 mg/dL (8.5-10.1); Chloride 104 mmol/L (98-107); Estimated GFR 53.46 (mL/min/1.73m2); Glucose 173 mg/dL (70-100); Potassium 3.9 mmol/L (3.5-5.1); Sodium 138 mmol/L (136-145)
[2018-07-18] MEDS: Lisinopril 20 MG TAB PO (14:12)
[2018-07-18] MEDS: Enoxaparin 40 MG/0.4 ML SYR SC (14:12)
[2018-07-18] MEDS: Insulin Aspart 300 UNITS/3 ML PEN SC (16:58)
--- NOTE | 2018-07-18 18:26 | NUR.NOTE ---
Nursing Note: Pt to [facility] floor from ED at 1135 via stretcher. A&Ox3; VS 36.4, 55 P, 18 R, 209/103 BP, 97% RA. aware. IID to right AC following magnesium run. Pt familiarized with hospital room, call [facility], policy and procedures etc. Call [facility]ane[facility] within reach. RN will continue to monitor.
[2018-07-19] VITALS (110 sets, daily range): BP systolic 90–150; BP diastolic 53–81; PULSE 48–121; RESP 12–26; TEMP 36.3–37.7; O2SAT 89–96
--- NOTE | 2018-07-19 02:49 | NUR.NOTE ---
Nursing Note: Called to bedside by patient, he is reporting abdominal pain throughout all quadrants as 8/10, abd assessed and no rebound tenderness. I have treated the patients pain per his request and MD orders. CC aware of patients abd pain. Pt. is upset that nothing is being done for me I attempted to explain to the patient his plan of care, I also assured him that I would pass along this information to the physician.
[2018-07-19] MEDS: MetroNIDAZOLE 500 MG/100 ML BAG 100 MG IVPB ×2 (03:07→17:07)
[2018-07-19] MEDS: ACETAMINOPHEN 1,000 MG/100 ML BTL 400 MG IVPB ×2 (04:04→21:52)
--- NOTE | 2018-07-19 04:22 | NUR.NOTE ---
Nursing Note: Pt. is upset we are unable to control his pain at this time, I have given the patient 2mg of Morphine and one dose of Offirmev per MD orders, I have also attempted to reposition for comfort, offered hot or cold compresses. Pt states it seems like all you people just guess and don't know what actually takes away pain I explained to the patient that no one medication works for everyone and that is why I gave him the Morphine 2mg and then gave him the Offirmev an hour later. Patient was not satisfied with this conversation.
--- NOTE | 2018-07-19 04:39 | NUR.NOTE ---
Nursing Note: Pt. reports he is feeling a little bit better pain is still a 6/10 but much better than earlier when patient reported pain as 8/10.
[2018-07-19 07:28] LABS: Abs Immature Grans 0.01 k/cumm (0.0-0.09); Absolute Basophil Count 0.01 k/cumm (0.0-0.2); Absolute Eosinophil Count 0.05 k/cumm (0.0-0.7); Absolute Lymphocyte Count 0.65 k/cumm (1.2-3.4); Absolute Monocyte Count 0.61 k/cumm (0.11-0.7); Absolute Neutrophil Count 7.83 k/cumm (1.2-6.7); Basophils % 0.1; Eosinophils % 0.5; HCT 43.5 % (40.0-50.0); HGB 14.4 g/dL (13.5-17.5); Immature Grans % 0.1; Lymphocytes % 7.1; Mean Corp. HGB Concentration 33.1 g/dL (32.0-36.0); Mean Corpuscular Hemoglobin 30.3 pg (27.0-33.0); Mean Corpuscular Volume 91.4 fL (80-95); Mean Platelet Volume 10.9 fL (8.0-11.0); Monocytes % 6.7; Neutrophils % 85.5; Platelet Count 171 x1000/uL (130-400); RBC 4.76 m/cumm (4.50-6.00); RBC Distribution Width 12.2 % (11.8-14.1); White Blood Cell Count 9.16 k/cumm (4.4-10.8)
[2018-07-19 07:40] LABS: Anion Gap 9.9 mmol/L (3-11); BUN 14 mg/dL (7-18); CO2 23.1 mmol/L (21.0-32.0); CREATININE 1.63 mg/dL (0.70-1.30); Calcium 9.1 mg/dL (8.5-10.1); Chloride 105 mmol/L (98-107); Estimated GFR 40.81 (mL/min/1.73m2); Glucose 194 mg/dL (70-100); Potassium 3.6 mmol/L (3.5-5.1); Sodium 138 mmol/L (136-145)
--- NOTE | 2018-07-19 07:49 | DI.RAD_ITS ---
SYMPTOM/DIAGNOSIS: ? PERFORATION, ABD PAIN ACUTE ABDOMINAL SERIES: PA CHEST: Heart size and pulmonary vasculature are stable. There is tortuosity and atherosclerosis of the thoracic aorta. There is an infiltrate seen in the left lung base. This may represent atelectasis or pneumonia. The right lung is clear. No effusion or pneumothorax is identified. IMPRESSION: Left basilar infiltrate. This may represent atelectasis or pneumonia. FPA AND UPRIGHT ABDOMEN There is residual oral contrast seen in the colon. There is diverticulosis of the colon noted. No evidence of bowel obstruction is seen. No evidence of free air is seen beneath the hemidiaphragms. No organomegaly is present. There is an endovascular aortoiliac stent. Degenerative changes are seen in the spine. IMPRESSION: No evidence of an acute abdomen. No evidence of pneumoperitoneum.
--- NOTE | 2018-07-19 08:24 | DI.VRAD_ITS ---
EXAM: XR Abdomen 2 Views with XR Chest 1 View EXAM DATE/TIME: 07/19/2018 7:50 AM CLINICAL HISTORY: 82 years old, male; Signs and symptoms; Other: ? Perforation TECHNIQUE: XR of the abdomen (2 views) with XR chest (1 view). COMPARISON: CR CHEST 2 VIEWS PA,LAT 05/17/2017 11:58 AM FINDINGS: Lungs: Mild opacity in the left lung base may represent atelectasis or pneumonia. Pleural space: Normal. No pneumothorax. Heart/Mediastinum: Normal. No cardiomegaly. Gastrointestinal tract: Barium retained in the colon. No dilated bowel. Intraperitoneal space: No free air under the diaphragm. Vasculature: Status post aortic to iliac bypass Bones/joints: Normal. No acute fracture. Soft tissues: Normal. IMPRESSION: 1. Mild opacity in the left lung base may represent atelectasis or pneumonia. 2. No free air under the diaphragm. 3. No dilated bowel. Dictated and Authenticated by: Mary Reyes MD. Ordering:SHAHANA Lang MD
--- NOTE | 2018-07-19 09:03 | PGE_ITS ---
Date of Service Date of service: 07/19/18 Time of Service: 09:03 Assessment and Plan (1) Renal insufficiency: Current visit: Yes Status: Chronic A\\ Worsening Cr this am NO UOP recorded P\\ Place brooke Start on IV fluids Repeat BMP and Lactate at noon (2) Diabetes: Current visit: Yes Status: Chronic A\\ Increase Blood sugars P\\ Continue to hold Metformin On insulin sliding scale Qualifiers: Diabetes mellitus type: type 2 Diabetes mellitus retirement insulin use: without retirement use Diabetes mellitus complication status: with kidney complications Diabetes mellitus complication detail: with chronic kidney disease Diabetic retinopathy severity: Proliferative retinopathy type: Diabetes mellitus macular edema: Laterality: Chronic kidney disease stage: stage 2 (mild) Qualified Code(s): E11.22 - Type 2 diabetes mellitus with diabetic chronic kidney disease; 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 Normal BS XRAY- no free air Stool throughout colon P\\ NPO Monitor pain. If continue to have increasing pain may need to repeat CT scan Qualifiers: Diverticulitis bleeding: without bleeding Qualified Code(s): K57.20 - Diverticulitis of large intestine with perforation and abscess without bleeding (4) Hypotension: Current visit: Yes Status: Acute A\\ Hypotension compaired to when he was admitted P\\ IV fluids Hold BP meds Monitor closely Qualifiers: Hypotension type: unspecified hypotension type Qualified Code(s): I95.9 - Hypotension, unspecified Subjective Interval history since last seen: Mr. Thompson is complaining of increased abdominal pain in the RLQ which started acutely at 2 am today. He received 2 doses of Morphine. He denies N/V. He is passing flatus. BP has decreased throughout the night. Pain is located in RLQ. Pain has improved with Morphine. Exam Resp Effort & Inspection: normal respiratory effort Auscultation: clear to auscultation bilaterally Cardio Rate: regular rate Rhythm: regular rhythm Heart Sounds: no gallops, no murmurs and no rubs GI Inspection: normal to inspection Palpation: tender in the LLQ (moderate on deep palpation, + guarding) and in the RLQ (mild on deep palpation) Auscultation: normal bowel sounds Objective Objective Clinical Data: Abnormal lab results 07/18/18 07/18/18 07/19/18 Range/Units 12:50 12:50 06:45 Absolute Neutrophils (1.2-6.7) k/cumm Absolute Lymphocytes (1.2-3.4) k/cumm Creatinine 1.63 H (0.70-1.30) mg/dL Glucose 173 H 194 H (70-100) mg/dL Lactate 1.9 H (0.6-1.4) mmol/l 07/19/18 Range/Units 06:45 Absolute Neutrophils 7.83 H (1.2-6.7) k/cumm Absolute Lymphocytes 0.65 L (1.2-3.4) k/cumm Creatinine (0.70-1.30) mg/dL Glucose (70-100) mg/dL Lactate (0.6-1.4) mmol/l Vital Signs Temperature 98.1 F 07/19/18 04:37 Temperature Source Tympanic 07/19/18 04:37 Pulse 60 07/19/18 07:04 Pulse Rhythm Regular 07/19/18 08:23 Pulse 50 L 07/18/18 08:20 Respiratory Rate 20 07/19/18 04:37 Respiratory Effort Non-Labored 07/19/18 08:23 Respiratory Depth Normal 07/19/18 08:23 Respiratory Pattern Normal 07/19/18 08:23 Blood Pressure 104/61 07/19/18 04:37 Blood Pressure Mean 105 07/18/18 08:01 Blood Pressure Position Sitting 07/18/18 06:55 Pulse Oximetry 95 07/19/18 04:37 Oxygen Delivery Method Room Air 07/19/18 04:37 Oxygen Flow Rate 0 07/19/18 04:37 Pain Level 9 07/19/18 06:55 Intake & Output 07/18/18 07/18/18 07/19/18 11:59 23:59 11:59 Intake Total 1000 / 3499.167 2499.167 / 3499.167 400 / 400 Balance 1000 / 3499.167 2499.167 / 3499.167 400 / 400 Weight 195 lb 0.017 oz 192 lb 14.472 oz Intake: IV 1000 / 9.167 1129.167 / 2129.167 400 / 400 Oral 1370 / 1370 Laboratory Results WBC 9.16 k/cumm (4.4-10.8) D 07/19/18 06:45 RBC 4.76 m/cumm (4.50-6.00) 07/19/18 06:45 Hgb 14.4 g/dL (13.5-17.5) 07/19/18 06:45 Hct 43.5 % (40.0-50.0) 07/19/18 06:45 MCV 91.4 fL (80-95) 07/19/18 06:45 MCH 30.3 pg (27.0-33.0) 07/19/18 06:45 MCHC 33.1 g/dL (32.0-36.0) 07/19/18 06:45 RDW 12.2 % (11.8-14.1) 07/19/18 06:45 Plt Count 171 x1000/uL (130-400) 07/19/18 06:45 MPV 10.9 fL (8.0-11.0) 07/19/18 06:45 Immature Gran % 0.1 07/19/18 06:45 Neutrophils % 85.5 07/19/18 06:45 Lymphocytes % 7.1 07/19/18 06:45 Monocytes % 6.7 07/19/18 06:45 Eosinophils % 0.5 07/19/18 06:45 Basophils % 0.1 07/19/18 06:45 Absolute Neutrophils 7.83 k/cumm (1.2-6.7) H 07/19/18 06:45 Absolute Lymphocytes 0.65 k/cumm (1.2-3.4) L 07/19/18 06:45 Absolute Monocytes 0.61 k/cumm (0.11-0.7) 07/19/18 06:45 Absolute Eosinophils 0.05 k/cumm (0.0-0.7) 07/19/18 06:45 Absolute Basophils 0.01 k/cumm (0.0-0.2) 07/19/18 06:45 Differential Comment Manual differential 07/18/18 07:10 RBC Morphology Normal 07/18/18 07:10 Sodium 138 mmol/L (136-145) 07/19/18 06:45 Potassium 3.6 mmol/L (3.5-5.1) 07/19/18 06:45 Chloride 105 mmol/L (98-107) 07/19/18 06:45 Carbon Dioxide 23.1 mmol/L (21.0-32.0) 07/19/18 06:45 Anion Gap 9.9 mmol/L (3-11) 07/19/18 06:45 BUN 14 mg/dL (7-18) 07/19/18 06:45 Creatinine 1.63 mg/dL (0.70-1.30) H 07/19/18 06:45 Estimated GFR/1.73 m2 40.81 (mL/min/1.73m2) 07/19/18 06:45 Glucose 194 mg/dL (70-100) H 07/19/18 06:45 Lactate 1.9 mmol/l (0.6-1.4) H 07/18/18 12:50 Calcium 9.1 mg/dL (8.5-10.1) 07/19/18 06:45 Magnesium 1.5 mg/dL (1.8-2.4) L 07/18/18 07:10 Total Bilirubin 0.6 mg/dL (0.2-1.0) 07/18/18 07:10 AST 19 U/L (15-37) 07/18/18 07:10 ALT 26 U/L (12-78) 07/18/18 07:10 Alkaline Phosphatase 125 U/L (46-116) H 07/18/18 07:10 Total Protein 6.8 g/dL (6.4-8.2) 07/18/18 07:10 Albumin 3.3 g/dL (3.4-5.0) L 07/18/18 07:10 Lipase 135 U/L (73-393) 07/18/18 07:10
[2018-07-19 09:04] LABS: Lactate-non-spesis 2.5 mmol/l (0.6-1.4)
[2018-07-19] MEDS: Insulin Aspart 300 UNITS/3 ML PEN SC ×3 (09:29→17:56)
[2018-07-19] MEDS: CIPROFLOXACIN 400 MG/200 ML BAG 200 MG IVPB ×2 (10:35→21:58)
[2018-07-19] MEDS: Lidocaine 2% Jelly 11 ML SYR UR (10:35)
[2018-07-19 11:56] LABS: Lactate-non-spesis 3.1 mmol/l (0.6-1.4)
[2018-07-19 12:28] LABS: BUN 16 mg/dL (7-18); CREATININE 1.78 mg/dL (0.70-1.30); Calcium 8.7 mg/dL (8.5-10.1); Chloride 103 mmol/L (98-107); Estimated GFR 36.87 (mL/min/1.73m2); Glucose 216 mg/dL (70-100); Potassium 3.8 mmol/L (3.5-5.1); Sodium 138 mmol/L (136-145)
[2018-07-19] MEDS: Lactated Ringers 1,000 ML 30 ML IV ×3 (12:47→15:40)
[2018-07-19] MEDS: Lidocaine 1% Pres-Free 5 ML VIAL (13:11)
--- NOTE | 2018-07-19 14:10 | BOWEL_PTH ---
PATIENT: Cesar Thompson LOC: U#:[id number] AGE/SX: 82/M ROOM: 229 RE07/18/[address]: Precious Quijano MD : [id number] BED: A DIS: 07/26/2018 SPEC #: [id number] RECD: 07/20/18 11:20 STATUS: DINO REQ #: [id number] DARY: 07/19/18 14:[address]: Precious Quijano DEPT: Surgical Specimen RECD BY: Tram Monroe ENTERED: 07/20/18 11:21 SP TYPE: Bowel OTHR DR: Rolando Moise Tissues: 1 - BOWEL RESECTION(OTHER) Procedures: GROSS AND MICRO LEVEL 5 Comments: [id number]
--- NOTE | 2018-07-19 16:08 | W.PM.OP ---
Date of service: 07/19/18 Time of Service: 16:08 Operative Note DATE OF PROCEDURE: 07/19/18 PRE-OP DIAGNOSIS: Diverticulitis with abscess/ acute abdomen POST-OP DIAGNOSIS: other (Diverticulitis with rupture of abscess) PROCEDURE: Exploratory Laparotomy, sigmoid resection and end colostomy Right subclavian central line placement Right a-line (anesthesia) SURGEON: Precious Quijano CONSUMER AFFAIRS SPECIALIST: Thuan Saenz ANESTHESIA: GETA ESTIMATED BLOOD LOSS: 200 PATHOLOGY: other (sigmoid colon) COMPLICATIONS: None (No immediate complications) Patient was transported to: ICU Patient's condition: critical Implants: none Indications: Mr. Thompson is a pleasant 82 year old male admitted yesterday with diverticulitis and abscess. he was started on antibiotics and given clear liquids. Did well with minimal pain medication requierements until about 2 am today when he develop acute 10/10 pain in the RLQ, he became hypotensive and tachycardic. he also had made no UOP. I was alerted by day shift. XR was done to look for free air. Labs revealed normal WBC count and BP was normalizing but patient continued to have 10/10 pain despite morphine. Abdomen was more distended and he had guarding and rebound tenderness. Exploratory laparotomy with sigmoid colectomy and end colostomy was discussed with the patient and he agreed to proceed. Risks, benefits and complications were reviewed. Questions were entertained and answered to his satisfaction and he wished top proceed. No guarantees were given or implied. Patient is a full code Findings: Purulent fluid throughout the abdomen. Large diverticular rupture in the mid sigmoid colon Procedure Description: After informed consent was obtained the patient was taken to the operating room and placed in a supine position. SCDs were applied to his bilateral lower extremities. Anesthesia placed a right radial arterial line and another 18-gauge peripheral IV while awake. The patient was then placed under general anesthesia and intubated. His abdomen was then prepped and draped in a sterile surgical fashion and a timeout was done. The patient's name, date of , preoperative diagnosis, procedure, DVT prophylaxis, antibiotic given, patient's type and screen status and fire risk were all assessed. Next 1% lidocaine mixed with half percent Marcaine with epinephrine was then injected into the dermis and subcutaneous tissue from the xiphoid process down to the pubic symphysis. Using a 10 blade the skin and subcutaneous tissue was cut along the midline. The fascia was cut with cautery. The peritoneum was entered with a hemostat and right a way purulent discharge was noted. The fascia was opened in its entire length with cautery making sure to keep the small bowel out of the way. Cultures both aerobic and anaerobic were done of the purulent fluid. I felt down in the pelvis with my hand and was able to feel the abscess in the proper proximal to mid sigmoid colon. The Omni retractor was then assembled and secured to the bed. The abdominal wall was retracted. Moist towels were placed around the small bowel and this was retracted to the superior abdomen. The descending and sigmoid colon was then dissected away from the peritoneum along the left gutter, along the white line of Toldt. The area in the descending colon where there was not a lot of inflammation was identified. An opening was created in the mesentery just below the bowel wall. The bowel was transected using an 80 cm straight stapler. Using the Soniscission as well as the ligasure the mesentery was dissected along the colon down to the junction with the rectum. A curved stapler was then used to transect the colon. Next the descending colon was mobilized up towards the splenic flexure until there was enough mobilization to be able to create an end colostomy. A circular piece of skin was then cut just to the left of the umbilicus with cautery the subcutaneous tissue was dissected all the way down to the fascia. The fascia was scored in an X fashion. The rectus muscle was retracted and the peritoneum was entered with hemostats. The peritoneum was then dilated using my fingers in the descending colon was pulled up through this. Once enough of the descending colon was mobilized that I felt confident I could do a colostomy without too much tension the abdomen was irrigated. The Omni retractors were removed towels and sponges were removed from the abdomen and counted. Sponge counts were correct at this point. The abdomen was then irrigated with 3-1/2 L of warm normal saline. Once the effluent was clear the rectal stump was secured to the peritoneum with a 2-0 Prolene to make it easier to find if this patient gets reversed. Then tried to palpate the NG tube but could not find it so anesthesia pulled it out and reinserted it at this point I could feel it in the mid stomach. The tube was secured. Liver was quickly palpated felt smooth and I could not feel any masses. The small bowel was inspected from ligament of Treitz to terminal ileum and no enterotomies or injuries were identified. The fascia was then closed with #1 Vicryl running suture. Next the end colostomy was created. The colon was secured with 2-0 Vicryl to the fascia so that it would not slip down. The mucosa was everted and secured to the skin with 3-0 silk pop off sutures. Once the ostomy was created the skin was cleaned and dried. A moist 4 x 4 was placed into the open midline wound and covered with ABDs and secured with tape. An ostomy appliance was then placed over the colostomy. Sponge, instrument, and needle counts were correct at the end of the case x2. The specimen was placed into formalin and sent to pathology. Next the drapes were removed and the patient's right chest wall was prepped and draped in a sterile surgical fashion. Using the triple lumen central line kit the median vein was punctured on the second try with the needle. The guidewire was placed through the needle without any resistance into the subclavian vein. The needle was removed. A small incision was made in the skin with an 11 blade at the entrance of the guidewire. The dilator was then placed over the guidewire into the subclavian vein. The guidewire was removed and the triple-lumen catheter was placed over the guidewire into the subclavian vein to 17 cm. The catheter was secured with 2-0 silk. All 3 ports were suctioned and then flushed with normal saline. A dry, occlusive dressing was applied over the central line. At this point the patient was woken up extubated and taken back to the ICU in stable but critical condition. Chest x-ray for line placement was pending at the time of this dictation.
--- NOTE | 2018-07-19 16:12 | DI.RAD_ITS ---
SYMPTOM/DIAGNOSIS: CENTRAL LINE PLACEMENT PORTABLE AP CHEST: Comparison is made with 07/19/18. The tip of the enteric feeding tube is seen in the stomach. The tip of the central venous catheter is seen in the right atrium. Heart size and pulmonary vasculature appear stable. Bilateral pulmonary infiltrates are seen, left greater than right. This may represent atelectasis or pneumonia. No pneumothorax or pleural effusion is appreciated.
--- NOTE | 2018-07-19 16:35 | DI.VRAD_ITS ---
EXAM: XR Chest, 1 View EXAM DATE/TIME: 07/19/2018 4:07 PM CLINICAL HISTORY: 82 years old, male; Device placement; Picc TECHNIQUE: XR of the chest, 1 view. COMPARISON: CR XR ABD FLAT UPRIGHT PA CHEST 07/19/2018 8:08 AM FINDINGS: Tubes, catheters and devices: An enteric feeding tube is present, with its tip located in the stomach in good position. Right PICC terminates in the right atrium Lungs: Mild opacities in the left base may represent atelectasis or pneumonia. Pleural space: Unremarkable. No pleural effusion. No pneumothorax. Heart/Mediastinum: Stable cardiomegaly Vasculature: Tortuous aorta Bones/joints: Stable Other findings: Overlying EKG wires IMPRESSION: Mild opacities in the left base may represent atelectasis or pneumonia. Right PICC terminates in the right atrium . It can be withdrawn 5 cm to terminate in the SVC if desired Dictated and Authenticated by: Mary Reyes MD. Ordering:SHAHANA Lang MD
[2018-07-19] MEDS: Lactated Ringers 1,000 ML 125 ML IV (16:45)
--- NOTE | 2018-07-19 17:48 | PDOC.CMIN ---
Care Management Initial Assess REASON FOR HOSPITALIZATION:: Diverticular Abscess PAST MEDICAL HISTORY/PAST SURGICAL HISTORY:: Medical: Diabetes mellitus (Chronic), HTN (hypertension) (Chronic), Hypercholesterolemia (Chronic), Myocardial infarct (Chronic). Surgical: H/O phimosis (Acute), History of endovascular stent graft for abdominal aortic aneurysm (AAA) (Chronic), History of heart artery stent (Chronic), S/P hernia repair (Inactive) PREVIOUS FUNCTIONAL STATUS/SOCIAL/FAMILY SUPPORTS:: Lives with his manager cosmetics, Montse De Anda, at their home in [facility]. Cesar was still drowsy from anesthesia and I was not able to interview him today. CURRENT FUNCTIONAL STATUS:: Lying in bed. Opens eyes in response to voice but unable to hold a conversation at this time. NG tube in place. To OR today for Exploratory Laparotomy, sigmoid resection and end colostomy performed. ADVANCE DIRECTIVES:: None on file Has patient been provided with information about the portal?: No Did the patient sign up for the portal?: No CODE STATUS:: Full Code INSURANCE COVERAGE / FINANCIAL ISSUES:: AARP. Medicare CURRENT HOME/COMMUNITY SERVICES/EQUIPMENT:: Unable to determine today PRIMARY CARE PHYSICIAN:: [facility]: Rolando Moise MD POTENTIAL DISCHARGE NEEDS:: TBD PATIENT/FAMILY EDUCATION NEEDS:: Colostomy care, Discharge instructions, ANTICIPATED BARRIERS TO DISCHARGE:: Unable to determine at this time TRANSPORTATION:: Family PLAN:: Anticipate he will return home. Services TBT. CM will follow and gather more information tomorrow.
--- NOTE | 2018-07-19 18:22 | INITIAL_ITS ---
Care Management Initial Assess REASON FOR HOSPITALIZATION:: Diverticular Abscess PAST MEDICAL HISTORY/PAST SURGICAL HISTORY:: Medical: Diabetes mellitus (Chronic), HTN (hypertension) (Chronic), Hypercholesterolemia (Chronic), Myocardial infarct (Chronic). Surgical: H/O phimosis (Acute), History of endovascular stent graft for abdominal aortic aneurysm (AAA) (Chronic), History of heart artery stent (Chronic), S/P hernia repair (Inactive) PREVIOUS FUNCTIONAL STATUS/SOCIAL/FAMILY SUPPORTS:: Lives with his nougat candy maker helper, Montse De Anda, at their home in [facility]. Cesar was still drowsy from anesthesia and I was not able to interview him today. CURRENT FUNCTIONAL STATUS:: Lying in bed. Opens eyes in response to voice but unable to hold a conversation at this time. NG tube in place. To OR today for Exploratory Laparotomy, sigmoid resection and end colostomy performed. ADVANCE DIRECTIVES:: None on file Has patient been provided with information about the portal?: No Did the patient sign up for the portal?: No CODE STATUS:: Full Code INSURANCE COVERAGE / FINANCIAL ISSUES:: AARP. Medicare CURRENT HOME/COMMUNITY SERVICES/EQUIPMENT:: Unable to determine today PRIMARY CARE PHYSICIAN:: [facility]: Rolando Moise MD POTENTIAL DISCHARGE NEEDS:: TBD PATIENT/FAMILY EDUCATION NEEDS:: Colostomy care, Discharge instructions, ANTICIPATED BARRIERS TO DISCHARGE:: Unable to determine at this time TRANSPORTATION:: Family PLAN:: Anticipate he will return home. Services TBT. CM will follow and gather more information tomorrow.
--- NOTE | 2018-07-19 18:34 | W.MEDCONSULT ---
Date of service: 07/19/18 Time of Service: 18:35 Assessment and Plan (1) Diverticulitis of large intestine with abscess: Current visit: Yes Status: Acute Worsening status this a.m. necessitating Ex-Lap with discovery of perforated abscess - patient is now s/p sigmoid resection and end colostomy. Also on antibiotic therapy with combination Cipro/Flagyl. Will await culture results, and monitor symptoms closely in the ICU. Qualifiers: Diverticulitis bleeding: without bleeding Qualified Code(s): K57.20 - Diverticulitis of large intestine with perforation and abscess without bleeding (2) Hypotension: Current visit: Yes Status: Acute In setting of Acute Diverticulitis with Perforated Abscess and acute abdomen. Patient's blood pressure is vastly improved following surgical intervention, and not currently requiring pressor therapy. Continue to hold MYRA-I and BB - was also initiated on CCB therapy yesterday given profound initial hypertension, now also on hold. Will monitor, and reinitiate medications as and when appropriate. Currently on minimal fluids, and not requiring pressor support - consider Norepinephrine overnight if needed. Qualifiers: Hypotension type: unspecified hypotension type Trimester: Qualified Code(s): I95.9 - Hypotension, unspecified (3) CHF (congestive heart failure): Current visit: Yes Status: Chronic Ischemic Cardiomyopathy, with initial LVEF of 35%, now fully recovered by ECHO 09/2017. No evidence of failure or volume overload currently. Continue IVFs, monitor fluid status and daily weights. MYRA-I on hold given both YEYO and NPO status. Will resume Lisinopril and BB when able. (4) CAD (coronary artery disease): Current visit: Yes Status: Chronic History of CAD with [facility] 02/2017, s/p MINNIE to LAD and PCI to the 1st Diag. Patient is more than 12 months out of intervention and insertion of stent - can hold DAPT with aspirin and plavix, but would resume aspirin as soon as possible when appropriate from surgery standpoint. Also with statin and BB therapy on hold as patient is NPO with NGT in place. (5) Diabetes: Current visit: Yes Status: Chronic Continue to hold metformin while hospitalized. Continue sliding scale coverage. 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 Pang in place. (7) DVT prophylaxis: Current visit: Yes Status: Acute SC Lovenox on hold following surgery - restart when appropriate. Continue SCDs. PPI initiated for GI Prophylaxis. History of Present Illness Chief Complaint: Abdominal Pain Narrative: 82 year old man with a prior medical history significant for CAD and ICMP, admitted to the surgical service on 07/18 from [facility] Emergency Department with a diagnosis of Diverticular Abscess. Mr. Thompson has a histor of CAD and prior NSTEMI, for which he underwent a LHC with insertion of a MINNIE to the LAD and PCI/Angioplasty of the 1st diag in February of 2018. He had a resultant ICMP with LVEF 35%, fully recovered by repeat ECHO in January of 2018 that also showed a lack of wall motion abnormalities. Other medical history includes AAA s/p Endograft repair, DM, HTN, Dyslipidemia, and a prior history of Tobacco use. The patient presented to the ED with complaint of worsening abdominal pain for one week. Imaging showed evidence of a Diverticular Abscess. He was admitted by Dr. Renae and initiated on antibiotic therapy. Further review of imaging by IR at [facility] deemed it appropriate for drainage, with plans for transfer for IR Procedure on Friday morning. Mr. Thompson was also noted to be hypertensive initially at time of admission. However, this morning he was noted to have a change in his status, with worsening symptoms, hypotension, and an acute abdomen by exam. Transfer to [facility] was not possible due to lack of bed availability, and the patient was taken to the OR for an Exploratory Laparotomy - found to have a perforated abscess and underwent a Sigmoid Resection with end Colostomy and insertion of a right sided SC TLC. Medicine service was consulted for medical co-management of patient following his surgery. [facility] Medical History Renal insufficiency (Chronic) Diverticulitis of large intestine with abscess (Acute) Phimosis (Acute) Diabetes mellitus (Chronic) HTN (hypertension) (Chronic) Hypercholesterolemia (Chronic) Myocardial infarct (Chronic) Surgical History H/O phimosis (Acute) History of endovascular stent graft for abdominal aortic aneurysm (AAA) (Chronic) History of heart artery stent (Chronic) S/P hernia repair (Inactive) Social History Smoking/Tobacco Use Status: Former Tobacco Use Quit Date: 01/03/17 Tobacco: How many years used: 60 Alcohol Intake: current Alcohol Intake frequency: 0-2 drinks per day Alcohol type: beer Drug use: Never Substance use type: does not use Do you feel safe at home: Yes Do you feel safe in your relationship?: Yes Exam Narrative Exam Narrative: General: Patient appears comfortable, Sleeping but easily arousable, NAD. NGT in place Skin: Right sided TLC Central Line noted. Neck: Supple CV: Regular, nontachycardic, S1S2, No overt rubs, murmurs, or gallops. Pulmonary: Clear to auscultation bilaterally, no crackles, wheezing, or rhonchi on limited anterior and lateral exam Abdomen: Bowel Sounds diminished, abdomen is distended but appears soft. LLQ Ostomy noted with bag containing scant amount of blood. Vascular: No lower extremity edema Psych: Normal mood and affect. Results Last Vital Signs Temp 36.3 C L 07/19/18 16:05 Pulse 91 H 07/19/18 18:31 Resp 17 07/19/18 18:31 BP 144/56 H 07/19/18 18:31 Pulse Ox 94 L 07/19/18 18:31 Labs : 07/19/18 06:45 07/19/18 11:40 Laboratory Results - last 24 hr 07/19/18 07/19/18 07/19/18 06:45 06:45 08:50 WBC 9.16 D RBC 4.76 Hgb 14.4 Hct 43.5 MCV 91.4 MCH 30.3 MCHC 33.1 RDW 12.2 Plt Count 171 MPV 10.9 Immature Gran % 0.1 Neutrophils % 85.5 Lymphocytes % 7.1 Monocytes % 6.7 Eosinophils % 0.5 Basophils % 0.1 Absolute Neutrophils 7.83 H Absolute Lymphocytes 0.65 L Absolute Monocytes 0.61 Absolute Eosinophils 0.05 Absolute Basophils 0.01 Sodium 138 Potassium 3.6 Chloride 105 Carbon Dioxide 23.1 Anion Gap 9.9 BUN 14 Creatinine 1.63 H Estimated GFR/1.73 m2 40.81 Glucose 194 H Lactate 2.5 H Calcium 9.1 Patient ABO/Rh Antibody Screen 07/19/18 07/19/18 07/19/18 11:40 11:40 11:40 WBC RBC Hgb Hct MCV MCH MCHC RDW Plt Count MPV Immature Gran % Neutrophils % Lymphocytes % Monocytes % Eosinophils % Basophils % Absolute Neutrophils Absolute Lymphocytes Absolute Monocytes Absolute Eosinophils Absolute Basophils Sodium 138 Potassium 3.8 Chloride 103 Carbon Dioxide 22.0 Anion Gap 13.0 H BUN 16 Creatinine 1.78 H Estimated GFR/1.73 m2 36.87 Glucose 216 H Lactate 3.1 H Calcium 8.7 Patient ABO/Rh O Positive Antibody Screen Negative
--- NOTE | 2018-07-19 19:04 | MCONE_ITS ---
Date of service: 07/19/18 Time of Service: 18:35 Assessment and Plan (1) Diverticulitis of large intestine with abscess: Current visit: Yes Status: Acute Worsening status this a.m. necessitating Ex-Lap with discovery of perforated abscess - patient is now s/p sigmoid resection and end colostomy. Also on antibiotic therapy with combination Cipro/Flagyl. Will await culture results, and monitor symptoms closely in the ICU. Qualifiers: Diverticulitis bleeding: without bleeding Qualified Code(s): K57.20 - Diverticulitis of large intestine with perforation and abscess without bleeding (2) Hypotension: Current visit: Yes Status: Acute In setting of Acute Diverticulitis with Perforated Abscess and acute abdomen. Patient's blood pressure is vastly improved following surgical intervention, and not currently requiring pressor therapy. Continue to hold MYRA-I and BB - was also initiated on CCB therapy yesterday given profound initial hypertension, now also on hold. Will monitor, and reinitiate medications as and when appropriate. Currently on minimal fluids, and not requiring pressor support - consider Norepinephrine overnight if needed. Qualifiers: Hypotension type: unspecified hypotension type Trimester: Qualified Code(s): I95.9 - Hypotension, unspecified (3) CHF (congestive heart failure): Current visit: Yes Status: Chronic Ischemic Cardiomyopathy, with initial LVEF of 35%, now fully recovered by ECHO 09/2017. No evidence of failure or volume overload currently. Continue IVFs, monitor fluid status and daily weights. MYRA-I on hold given both YEYO and NPO status. Will resume Lisinopril and BB when able. (4) CAD (coronary artery disease): Current visit: Yes Status: Chronic History of CAD with [facility] 02/2017, s/p MINNIE to LAD and PCI to the 1st Diag. Patient is more than 12 months out of intervention and insertion of stent - can hold DAPT with aspirin and plavix, but would resume aspirin as soon as possible when appropriate from surgery standpoint. Also with statin and BB therapy on hold as patient is NPO with NGT in place. (5) Diabetes: Current visit: Yes Status: Chronic Continue to hold metformin while hospitalized. Continue sliding scale coverage. Qualifiers: Diabetes mellitus type: type 2 Diabetes mellitus long-term insulin use: without long-term use Diabetes mellitus complication status: with kidney complications Diabetes mellitus complication detail: with chronic kidney disease Diabetic retinopathy severity: Proliferative retinopathy type: Diabetes mellitus macular edema: Laterality: Chronic kidney disease stage: stage 2 (mild) Qualified Code(s): E11.22 - Type 2 diabetes mellitus with diabetic chronic kidney disease; N18.2 - Chronic kidney disease, stage 2 (mild) (6) BPH (benign prostatic hyperplasia): Current visit: Yes Status: Chronic a-juma on hold as patient is current NPO. Pang in place. (7) DVT prophylaxis: Current visit: Yes Status: Acute SC Lovenox on hold following surgery - restart when appropriate. Continue SCDs. PPI initiated for GI Prophylaxis. History of Present Illness Chief Complaint: Abdominal Pain Narrative: 82 year old man with a prior medical history significant for CAD and ICMP, admitted to the surgical service on 07/18 from [facility] Emergency Department with a diagnosis of Diverticular Abscess. Mr. Thompson has a histor of CAD and prior NSTEMI, for which he underwent a LHC with insertion of a MINNIE to the LAD and PCI/Angioplasty of the 1st diag in February of 2018. He had a resultant ICMP with LVEF 35%, fully recovered by repeat ECHO in January of 2018 that also showed a lack of wall motion abnormalities. Other medical history includes AAA s/p Endograft repair, DM, HTN, Dyslipidemia, and a prior history of Tobacco use. The patient presented to the ED with complaint of worsening abdominal pain for one week. Imaging showed evidence of a Diverticular Abscess. He was admitted by Dr. Renae and initiated on antibiotic therapy. Further review of imaging [place] [facility] [place] appropriate for [place], with plans for transfer for IR Procedure on Friday morning. Mr. Thompson was also noted to be hypertensive initially at time of admission. However, this morning he was noted to have a change in his status, with worsening symptoms, hypotension, and an acute abdomen by exam. [place] [facility] [place] due to lack of bed availability, and the patient was taken to the OR for an Exploratory Laparotomy - found to have a perforated abscess and underwent a Sigmoid Resection with end Colostomy and insertion of a right sided SC TLC. Medicine service was consulted for medical co-management of patient following his surgery. [facility] Medical History Renal insufficiency (Chronic) Diverticulitis of large intestine with abscess (Acute) Phimosis (Acute) Diabetes mellitus (Chronic) HTN (hypertension) (Chronic) Hypercholesterolemia (Chronic) Myocardial infarct (Chronic) Surgical History H/O phimosis (Acute) History of endovascular stent graft for abdominal aortic aneurysm (AAA) (Chronic) History of heart artery stent (Chronic) S/P hernia repair (Inactive) Social History Smoking/Tobacco Use Status: Former Tobacco Use Quit Date: 01/03/17 Tobacco: How many years used: 60 Alcohol Intake: current Alcohol Intake frequency: 0-2 drinks per day Alcohol type: beer Drug use: Never Substance use type: does not use Do you feel safe at home: Yes Do you feel safe in your relationship?: Yes Exam Narrative Exam Narrative: General: Patient appears comfortable, Sleeping but easily arousable, NAD. NGT in place Skin: Right sided TLC Central Line noted. Neck: Supple CV: Regular, nontachycardic, S1S2, No overt rubs, murmurs, or gallops. Pulmonary: Clear to auscultation bilaterally, no crackles, wheezing, or rhonchi on limited anterior and lateral exam Abdomen: Bowel Sounds diminished, abdomen is distended but appears soft. LLQ Ostomy noted with bag containing scant amount of blood. Vascular: No lower extremity edema Psych: Normal mood and affect. Results Last Vital Signs Temp 36.3 C L 07/19/18 16:05 Pulse 91 H 07/19/18 18:31 Resp 17 07/19/18 18:31 BP 144/56 H 07/19/18 18:31 Pulse Ox 94 L 07/19/18 18:31 Labs : 07/19/18 06:45 07/19/18 11:40 Laboratory Results - last 24 hr 07/19/18 07/19/18 07/19/18 06:45 06:45 08:50 WBC 9.16 D RBC 4.76 Hgb 14.4 Hct 43.5 MCV 91.4 MCH 30.3 MCHC 33.1 RDW 12.2 Plt Count 171 MPV 10.9 Immature Gran % 0.1 Neutrophils % 85.5 Lymphocytes % 7.1 Monocytes % 6.7 Eosinophils % 0.5 Basophils % 0.1 Absolute Neutrophils 7.83 H Absolute Lymphocytes 0.65 L Absolute Monocytes 0.61 Absolute Eosinophils 0.05 Absolute Basophils 0.01 Sodium 138 Potassium 3.6 Chloride 105 Carbon Dioxide 23.1 Anion Gap 9.9 BUN 14 Creatinine 1.63 H Estimated GFR/1.73 m2 40.81 Glucose 194 H Lactate 2.5 H Calcium 9.1 Patient ABO/Rh Antibody Screen 07/19/18 07/19/18 07/19/18 11:40 11:40 11:40 WBC RBC Hgb Hct MCV MCH MCHC RDW Plt Count MPV Immature Gran % Neutrophils % Lymphocytes % Monocytes % Eosinophils % Basophils % Absolute Neutrophils Absolute Lymphocytes Absolute Monocytes Absolute Eosinophils Absolute Basophils Sodium 138 Potassium 3.8 Chloride 103 Carbon Dioxide 22.0 Anion Gap 13.0 H BUN 16 Creatinine 1.78 H Estimated GFR/1.73 m2 36.87 Glucose 216 H Lactate 3.1 H Calcium 8.7 Patient ABO/Rh O Positive Antibody Screen Negative
[2018-07-19] MEDS: Normal Saline Flush 10 ML SYR IVP (21:59)
[2018-07-19] MEDS: Pantoprazole 40 MG VIAL IVP (21:59)
[2018-07-20] VITALS (135 sets, daily range): BP systolic 108–173; BP diastolic 59–79; PULSE 0–98; RESP 0–27; TEMP 36.3–36.9; O2SAT 92–98
[2018-07-20] MEDS: Lactated Ringers 1,000 ML 125 ML IV ×2 (00:59→09:44)
[2018-07-20] MEDS: MetroNIDAZOLE 500 MG/100 ML BAG 100 MG IVPB ×4 (00:59→23:57)
[2018-07-20] MEDS: Normal Saline Flush 10 ML SYR IVP ×3 (05:53→19:48)
[2018-07-20 06:07] LABS: Abs Immature Grans 0.04 k/cumm (0.0-0.09); Absolute Basophil Count 0.01 k/cumm (0.0-0.2); Absolute Lymphocyte Count 0.88 k/cumm (1.2-3.4); Absolute Monocyte Count 0.87 k/cumm (0.11-0.7); Basophils % 0.1; HGB 12.7 g/dL (13.5-17.5); Immature Grans % 0.3; Lymphocytes % 7.3; Mean Corp. HGB Concentration 33.4 g/dL (32.0-36.0); Mean Corpuscular Hemoglobin 30.9 pg (27.0-33.0); Mean Corpuscular Volume 92.5 fL (80-95); Mean Platelet Volume 10.5 fL (8.0-11.0); Monocytes % 7.2; Neutrophils % 85.1; Platelet Count 178 x1000/uL (130-400); RBC 4.11 m/cumm (4.50-6.00); RBC Distribution Width 12.2 % (11.8-14.1); White Blood Cell Count 12.04 k/cumm (4.4-10.8)
[2018-07-20 06:17] LABS: Absolute Neutrophil Count 10.25 k/cumm (1.2-6.7)
[2018-07-20 06:20] LABS: BUN 22 mg/dL (7-18); CREATININE 1.98 mg/dL (0.70-1.30); Calcium 8.3 mg/dL (8.5-10.1); Chloride 105 mmol/L (98-107); Glucose 210 mg/dL (70-100); Sodium 138 mmol/L (136-145)
--- NOTE | 2018-07-20 07:26 | PGE_ITS ---
Date of Service Date of service: 07/20/18 Time of Service: 07:26 Assessment and Plan (1) Renal insufficiency: Current visit: Yes Status: Chronic A\\ Cr up today to 1.94 UOP decreased since about 1 am (75 cc) P\\ 500 cc bolus of NS May need some lasix (2) S/P left hemicolectomy: Current visit: Yes Status: Acute A\\ POD#1 s/p sigmoid colon resection and end colostomy P\\ Diet: NPO Await return of bowel function Ambulation: up to chair and ambulate in room May need PT consult. Leukocytosis: slightly increased. Continue antibiotics NG tube: continue with NG to LIWS until bowel function returns Wound: wet to dry dressing changes BID Ostomy: will start ostomy teaching in 1-2 days Discharge: will need home health for ostomy care and abdominal wound care (3) BPH (benign prostatic hyperplasia): Current visit: Yes Status: Chronic A\\ Brooke in place P\\ Restart Flomax prior to d/c of brooke Qualifiers: Lower urinary tract symptom presence: unspecified whether lower urinary tract symptoms present Qualified Code(s): N40.0 - Benign prostatic hyperplasia without lower urinary tract symptoms (4) DVT prophylaxis: Current visit: Yes Status: Acute Continue with SCD's and Lovenox (5) CAD (coronary artery disease): Current visit: Yes Status: Chronic A\\ Stable overnight P\\ Start Lisinopril [address] Conner assisting with his BP meds and fluid Qualifiers: Coronary Disease-Associated Artery/Lesion type: [place] artery Associated angina: without angina (6) Diabetes: Current visit: Yes Status: Chronic A\\ HIGH BS P\\ Blood sugars q6 h Insulin sliding scale Qualifiers: Diabetes mellitus type: type 2 Diabetes mellitus longterm insulin use: without longterm use Diabetes mellitus complication status: with kidney complications Diabetes mellitus complication detail: with chronic kidney disease Diabetic retinopathy severity: Proliferative retinopathy type: Diabetes mellitus macular edema: Laterality: Chronic kidney disease stage: stage 2 (mild) Qualified Code(s): E11.22 - Type 2 diabetes mellitus with diabetic chronic kidney disease; 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 Thompson is doing well this am. His only complaint is that of a sore throat due to the NG tube. He only received Tylenol throughout the night. No flatus. No N/V Exam Resp Effort & Inspection: normal respiratory effort Auscultation: clear to auscultation bilaterally Cardio Rate: regular rate Rhythm: regular rhythm Heart Sounds: no gallops, no murmurs and no rubs GI Inspection: incision (dressing intact) and other (ostomy- congested, minimal bloody output) Palpation: soft and tender (appropriate tenderness along the midline) Auscultation: absent bowel sounds Objective Objective Clinical Data: Abnormal lab results 07/19/18 07/19/18 07/19/18 Range/Units 06:45 06:45 08:50 WBC (4.4-10.8) k/cumm RBC (4.50-6.00) m/cumm Hgb (13.5-17.5) g/dL Hct (40.0-50.0) % Absolute Neutrophils 7.83 H (1.2-6.7) k/cumm Absolute Lymphocytes 0.65 L (1.2-3.4) k/cumm Absolute Monocytes (0.11-0.7) k/cumm Anion Gap (3-11) mmol/L BUN (7-18) mg/dL Creatinine 1.63 H (0.70-1.30) mg/dL Glucose 194 H (70-100) mg/dL Lactate 2.5 H (0.6-1.4) mmol/l Calcium (8.5-10.1) mg/dL 07/19/18 07/19/18 07/20/18 Range/Units 11:40 11:40 06:00 WBC (4.4-10.8) k/cumm RBC (4.50-6.00) m/cumm Hgb (13.5-17.5) g/dL Hct (40.0-50.0) % Absolute Neutrophils (1.2-6.7) k/cumm Absolute Lymphocytes (1.2-3.4) k/cumm Absolute Monocytes (0.11-0.7) k/cumm Anion Gap 13.0 H (3-11) mmol/L BUN 22 H D (7-18) mg/dL Creatinine 1.78 H 1.98 H (0.70-1.30) mg/dL Glucose 216 H 210 H (70-100) mg/dL Lactate 3.1 H (0.6-1.4) mmol/l Calcium 8.3 L (8.5-10.1) mg/dL 07/20/18 Range/Units 06:00 WBC 12.04 H D (4.4-10.8) k/cumm RBC 4.11 L (4.50-6.00) m/cumm Hgb 12.7 L (13.5-17.5) g/dL Hct 38.0 L (40.0-50.0) % Absolute Neutrophils 10.25 H (1.2-6.7) k/cumm Absolute Lymphocytes 0.88 L (1.2-3.4) k/cumm Absolute Monocytes 0.87 H (0.11-0.7) k/cumm Anion Gap (3-11) mmol/L BUN (7-18) mg/dL Creatinine (0.70-1.30) mg/dL Glucose (70-100) mg/dL Lactate (0.6-1.4) mmol/l Calcium (8.5-10.1) mg/dL Vital Signs Temperature 97.7 F 07/20/18 03:40 Temperature Source Temporal Artery Scan 07/20/18 03:40 Pulse 79 07/20/18 06:00 Pulse Rhythm Regular 07/19/18 08:23 Pulse 68 07/20/18 06:10 Respiratory Rate 18 07/20/18 06:10 Respiratory Effort Non-Labored 07/20/18 03:40 Respiratory Depth Normal 07/20/18 03:40 Respiratory Pattern Normal 07/20/18 03:40 Blood Pressure 143/71 H 07/20/18 06:00 Blood Pressure Mean 89 07/20/18 06:00 Blood Pressure Position Sitting 07/20/18 03:40 Pulse Oximetry 94 L 07/20/18 06:10 Oxygen Delivery Method Room Air 07/20/18 00:13 Oxygen Flow Rate 0 07/20/18 00:13 Pain Level 0 07/20/18 03:40 Intake & Output 07/19/18 07/19/18 07/20/18 11:59 23:59 11:59 Intake Total 620 / 3450.417 2830.417 / 3450.417 722.083 / 722.083 Output Total 100 / 1025 675 / 1025 425 / 425 Balance 520 / 2425.417 2155.417 / 2425.417 297.083 / 297.083 Weight 192 lb 14.472 oz 192 lb 14.472 oz 195 lb 5.273 oz Intake: IV 620 / 3450.417 2830.417 / 3450.417 672.083 / 672.083 Oral 50 / 50 Output: Gastric Drainage 200 / 450 250 / 250 Right Nare 200 / 450 250 / 250 Urine 100 / 375 275 / 375 175 / 175 Estimated Blood Loss 200 / 200 Other: Urine Color Light Carmela Light Carmela Dark Carmela Urine Appearance Clear Clear Clear Comment brooke patent brooke patent Voiding Methods Toilet Laboratory Results WBC 12.04 k/cumm (4.4-10.8) H D 07/20/18 06:00 RBC 4.11 m/cumm (4.50-6.00) L 07/20/18 06:00 Hgb 12.7 g/dL (13.5-17.5) L 07/20/18 06:00 Hct 38.0 % (40.0-50.0) L 07/20/18 06:00 MCV 92.5 fL (80-95) 07/20/18 06:00 MCH 30.9 pg (27.0-33.0) 07/20/18 06:00 MCHC 33.4 g/dL (32.0-36.0) 07/20/18 06:00 RDW 12.2 % (11.8-14.1) 07/20/18 06:00 Plt Count 178 x1000/uL (130-400) 07/20/18 06:00 MPV 10.5 fL (8.0-11.0) 07/20/18 06:00 Immature Gran % 0.3 07/20/18 06:00 Neutrophils % 85.1 07/20/18 06:00 Lymphocytes % 7.3 07/20/18 06:00 Monocytes % 7.2 07/20/18 06:00 Eosinophils % 0.0 07/20/18 06:00 Basophils % 0.1 07/20/18 06:00 Absolute Neutrophils 10.25 k/cumm (1.2-6.7) H 07/20/18 06:00 Absolute Lymphocytes 0.88 k/cumm (1.2-3.4) L 07/20/18 06:00 Absolute Monocytes 0.87 k/cumm (0.11-0.7) H 07/20/18 06:00 Absolute Eosinophils 0.00 k/cumm (0.0-0.7) 07/20/18 06:00 Absolute Basophils 0.01 k/cumm (0.0-0.2) 07/20/18 06:00 Differential Comment Manual differential 07/18/18 07:10 RBC Morphology Normal 07/18/18 07:10 Sodium 138 mmol/L (136-145) 07/20/18 06:00 Potassium 4.0 mmol/L (3.5-5.1) 07/20/18 06:00 Chloride 105 mmol/L (98-107) 07/20/18 06:00 Carbon Dioxide 25.0 mmol/L (21.0-32.0) 07/20/18 06:00 Anion Gap 8.0 mmol/L (3-11) 07/20/18 06:00 BUN 22 mg/dL (7-18) H D 07/20/18 06:00 Creatinine 1.98 mg/dL (0.70-1.30) H 07/20/18 06:00 Estimated GFR/1.73 m2 32.60 (mL/min/1.73m2) 07/20/18 06:00 Glucose 210 mg/dL (70-100) H 07/20/18 06:00 Lactate 3.1 mmol/l (0.6-1.4) H 07/19/18 11:40 Calcium 8.3 mg/dL (8.5-10.1) L 07/20/18 06:00 Magnesium 1.5 mg/dL (1.8-2.4) L 07/18/18 07:10 Total Bilirubin 0.6 mg/dL (0.2-1.0) 07/18/18 07:10 AST 19 U/L (15-37) 07/18/18 07:10 ALT 26 U/L (12-78) 07/18/18 07:10 Alkaline Phosphatase 125 U/L (46-116) H 07/18/18 07:10 Total Protein 6.8 g/dL (6.4-8.2) 07/18/18 07:10 Albumin 3.3 g/dL (3.4-5.0) L 07/18/18 07:10 Lipase 135 U/L (73-393) 07/18/18 07:10 Patient ABO/Rh O Positive 07/19/18 11:40 Antibody Screen Negative 07/19/18 11:40
[2018-07-20] MEDS: Normal Saline 250 ML 500 ML IV (07:52)
[2018-07-20] MEDS: Insulin Aspart 300 UNITS/3 ML PEN SC ×4 (08:49→23:56)
[2018-07-20] MEDS: Lisinopril 20 MG TAB PO (08:49)
--- NOTE | 2018-07-20 10:07 | NUR.NOTE ---
07/20/18 The right radial A-line recalibrated with bed at 25 degrees. Nursing Note:
[2018-07-20] MEDS: CIPROFLOXACIN 400 MG/200 ML BAG 200 MG IVPB ×2 (10:56→22:04)
[2018-07-20] MEDS: Enoxaparin 40 MG/0.4 ML SYR SC (13:52)
[2018-07-20] MEDS: Metoprolol 25 MG TAB PO ×2 (13:52→23:57)
--- NOTE | 2018-07-20 15:05 | CHAPLAIN ---
Cesar was resting in bed when I visited. 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 He later skied and jumped in [employer]. He was raced in [employer] and attended the [facility] [employer]. He has not attended in many years but gave me permission to contact Pastor Barnett and let him know that Cesar is here. Cesar told me he has daughters living in [place], [place] and [place], [place]. He lives with is his significant other of several years.
--- NOTE | 2018-07-20 15:41 | W.PM.PROGNOT ---
Date of Service Date of service: 07/20/18 Time of Service: 15:42 Assessment and Plan (1) Diverticulitis of large intestine with abscess: Current visit: Yes Status: Acute Worsening status necessitating Ex-Lap with discovery of perforated abscess - patient is now s/p sigmoid resection and end colostomy. Also on antibiotic therapy with combination Cipro/Flagyl. Surgical specimen with moderate WBCs on Gram Stain, and GNR on cultures. Continue to monitor symptoms closely in the ICU. Qualifiers: Diverticulitis bleeding: without bleeding Qualified Code(s): K57.20 - Diverticulitis of large intestine with perforation and abscess without bleeding (2) Hypotension: Current visit: Yes Status: Acute In setting of Acute Diverticulitis with Perforated Abscess and acute abdomen. Patient's blood pressure is vastly improved following surgical intervention, and now hypertensive. Continue to hold MYRA-I given YEYO this morning. Restarted BB this morning - will initiate moderate dose CCB therapy given consistent systolic values in the 160-170 this afternoon, with goal of sbp 120-150. Would avoid overt hypotension to allow for adequate renal perfusion. Currently on maintenance fluids. Qualifiers: Hypotension type: unspecified hypotension type Trimester: Qualified Code(s): I95.9 - Hypotension, unspecified (3) CHF (congestive heart failure): Current visit: Yes Status: Chronic Ischemic Cardiomyopathy, with initial LVEF of 35%, now fully recovered by ECHO 09/2017. No evidence of failure or volume overload currently. Continue IVFs, monitor fluid status and daily weights. MYRA-I on hold given both YEYO and NPO status. Will resume Lisinopril when able. Continue BB. (4) CAD (coronary artery disease): Current visit: Yes Status: Chronic History of CAD with [facility] 02/2017, s/p MINNIE to LAD and PCI to the 1st Diag. Patient is more than 12 months out of intervention and insertion of stent - can hold DAPT with aspirin and plavix. Will resume aspirin tomorrow morning, and reinitiate BB therapy as above. Will also resume statin therapy. Qualifiers: Coronary Disease-Associated Artery/Lesion type: [place] artery [place] vs. transplanted heart: Associated angina: without angina (5) Diabetes: Current visit: Yes Status: Chronic Continue to hold metformin while hospitalized. Continue sliding scale coverage. 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 Brooke in place. Qualifiers: Lower urinary tract symptom presence: unspecified whether lower urinary tract symptoms present Lower urinary tract symptom detail: Qualified Code(s): N40.0 - Benign prostatic hyperplasia without lower urinary tract symptoms (7) DVT prophylaxis: Current visit: Yes Status: Acute Resume SC Lovenox. Continue SCDs. PPI initiated for GI Prophylaxis. Subjective Interval history since last seen: 82 year old man with a prior medical history significant for CAD and ICMP, admitted to the surgical service on 07/18 from [facility] Department with a diagnosis of Diverticular Abscess. Mr. Thompson has a histor of CAD and prior NSTEMI, for which he underwent a LHC with insertion of a MNINIE to the LAD and PCI/Angioplasty of the 1st diag in February of 2018. He had a resultant ICMP with LVEF 35%, fully recovered by repeat ECHO in January of 2018 that also no evidence of wall motion abnormalities. Other medical history includes AAA s/p Endograft repair, DM, HTN, Dyslipidemia, and a prior history of Tobacco use. The patient presented to the ED with complaint of worsening abdominal pain for one week. Imaging showed evidence of a Diverticular Abscess. He was admitted by Dr. Renae and initiated on antibiotic therapy. Further review of imaging [place] [facility] [place] it appropriate for [place], with plans for transfer for IR Procedure on the following Friday morning. Mr. Thompson was also noted to be hypertensive initially at time of admission. However, on the morning of 07/19 he was noted to have a change in his status, with worsening symptoms, hypotension, and an acute abdomen by exam. [place] [facility] [place] not possible due to lack of bed availability, and the patient was taken to the OR for an Exploratory Laparotomy - found to have a perforated abscess and underwent a Sigmoid Resection with end Colostomy and insertion of a right sided SC TLC. Medicine service was consulted for medical co-management of patient following his surgery. This morning the patient appears to be doing well. He remains NPO with NGT in place. He is now hypertensive. Labs indicate worsening renal function. No other overnight events reported. Remains afebrile. Exam Narrative Exam Narrative: General: Patient appears comfortable, AAOX3, NAD. NGT in place. Initially OOB in chair, back in bed at time of exam. Skin: Right sided TLC Central Line noted. Neck: Supple CV: Regular, nontachycardic, S1S2, No overt rubs, murmurs, or gallops. Pulmonary: Clear to auscultation bilaterally, no crackles, wheezing, or rhonchi on limited anterior and lateral exam Abdomen: Bowel Sounds diminished, abdomen is distended but appears soft. LLQ Ostomy noted. Vascular: No lower extremity edema Psych: Normal mood and affect. Objective Objective Clinical Data: Abnormal lab results 07/20/18 07/20/18 Range/Units 06:00 06:00 WBC 12.04 H D (4.4-10.8) k/cumm RBC 4.11 L (4.50-6.00) m/cumm Hgb 12.7 L (13.5-17.5) g/dL Hct 38.0 L (40.0-50.0) % Absolute Neutrophils 10.25 H (1.2-6.7) k/cumm Absolute Lymphocytes 0.88 L (1.2-3.4) k/cumm Absolute Monocytes 0.87 H (0.11-0.7) k/cumm BUN 22 H D (7-18) mg/dL Creatinine 1.98 H (0.70-1.30) mg/dL Glucose 210 H (70-100) mg/dL Calcium 8.3 L (8.5-10.1) mg/dL Vital Signs Temperature 36.6 C 07/20/18 08:13 Temperature Source Temporal Artery Scan 07/20/18 08:13 Pulse 63 07/20/18 10:01 Pulse Rhythm Regular 07/19/18 08:23 Pulse 62 07/20/18 10:01 Respiratory Rate 17 07/20/18 10:01 Respiratory Effort 07/20/18 08:13 Respiratory Depth Normal 07/20/18 08:13 Respiratory Pattern Normal 07/20/18 08:13 Blood Pressure 161/67 H 07/20/18 14:09 Blood Pressure Mean 98 07/20/18 14:09 Blood Pressure Position Supine 07/20/18 14:09 Pulse Oximetry 93 L 07/20/18 10:01 Oxygen Delivery Method Room Air 07/20/18 08:13 Oxygen Flow Rate 0 07/20/18 08:13 Pain Level 0 07/20/18 08:13 Intake & Output 07/19/18 07/20/18 07/20/18 23:59 11:59 23:59 Intake Total 2830.417 / 3450.417 1948.833 / 2315.500 366.667 / 2315.500 Output Total 675 / 1025 540 / 590 50 / 590 Balance 2155.417 / 2425.417 1408.833 / 1725.500 316.667 / 1725.500 Weight 87.5 kg 88.6 kg Intake: IV 2830.417 / 3450.417 1898.833 / 2265.500 366.667 / 2265.500 Oral 50 / 50 Output: Gastric Drainage 200 / 450 350 / 400 50 / 400 Right Nare 200 / 450 350 / 400 50 / 400 Urine 275 / 375 175 / 175 Stool 15 / 15 Estimated Blood Loss 200 / 200 Other: Urine Color Light Carmela Dark Carmela Urine Appearance Clear Clear Comment brooke patent pH of 5, Moderate blood, Sg of 1.030 Gastric Occult Blood Right Nare Positive Laboratory Results WBC 12.04 k/cumm (4.4-10.8) H D 07/20/18 06:00 RBC 4.11 m/cumm (4.50-6.00) L 07/20/18 06:00 Hgb 12.7 g/dL (13.5-17.5) L 07/20/18 06:00 Hct 38.0 % (40.0-50.0) L 07/20/18 06:00 MCV 92.5 fL (80-95) 07/20/18 06:00 MCH 30.9 pg (27.0-33.0) 07/20/18 06:00 MCHC 33.4 g/dL (32.0-36.0) 07/20/18 06:00 RDW 12.2 % (11.8-14.1) 07/20/18 06:00 Plt Count 178 x1000/uL (130-400) 07/20/18 06:00 MPV 10.5 fL (8.0-11.0) 07/20/18 06:00 Immature Gran % 0.3 07/20/18 06:00 Neutrophils % 85.1 07/20/18 06:00 Lymphocytes % 7.3 07/20/18 06:00 Monocytes % 7.2 07/20/18 06:00 Eosinophils % 0.0 07/20/18 06:00 Basophils % 0.1 07/20/18 06:00 Absolute Neutrophils 10.25 k/cumm (1.2-6.7) H 07/20/18 06:00 Absolute Lymphocytes 0.88 k/cumm (1.2-3.4) L 07/20/18 06:00 Absolute Monocytes 0.87 k/cumm (0.11-0.7) H 07/20/18 06:00 Absolute Eosinophils 0.00 k/cumm (0.0-0.7) 07/20/18 06:00 Absolute Basophils 0.01 k/cumm (0.0-0.2) 07/20/18 06:00 Differential Comment Manual differential 07/18/18 07:10 RBC Morphology Normal 07/18/18 07:10 Sodium 138 mmol/L (136-145) 07/20/18 06:00 Potassium 4.0 mmol/L (3.5-5.1) 07/20/18 06:00 Chloride 105 mmol/L (98-107) 07/20/18 06:00 Carbon Dioxide 25.0 mmol/L (21.0-32.0) 07/20/18 06:00 Anion Gap 8.0 mmol/L (3-11) 07/20/18 06:00 BUN 22 mg/dL (7-18) H D 07/20/18 06:00 Creatinine 1.98 mg/dL (0.70-1.30) H 07/20/18 06:00 Estimated GFR/1.73 m2 32.60 (mL/min/1.73m2) 07/20/18 06:00 Glucose 210 mg/dL (70-100) H 07/20/18 06:00 Lactate 3.1 mmol/l (0.6-1.4) H 07/19/18 11:40 Calcium 8.3 mg/dL (8.5-10.1) L 07/20/18 06:00 Magnesium 1.5 mg/dL (1.8-2.4) L 07/18/18 07:10 Total Bilirubin 0.6 mg/dL (0.2-1.0) 07/18/18 07:10 AST 19 U/L (15-37) 07/18/18 07:10 ALT 26 U/L (12-78) 07/18/18 07:10 Alkaline Phosphatase 125 U/L (46-116) H 07/18/18 07:10 Total Protein 6.8 g/dL (6.4-8.2) 07/18/18 07:10 Albumin 3.3 g/dL (3.4-5.0) L 07/18/18 07:10 Lipase 135 U/L (73-393) 07/18/18 07:10 Patient ABO/Rh O Positive 07/19/18 11:40 Antibody Screen Negative 07/19/18 11:40
--- NOTE | 2018-07-20 15:49 | PDOC.CMPRO ---
- If Service Date Differs Date of service: 07/20/18 Time of Service: 15:49 Care Management Progress Note S/O: CM met with Ovidio at the bedside he is alert and engaged with CM. He states he is only having pain when he coughs. 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 He has questions related to his benefits and hospital assistance. His significant other Montse is going to follow up with the business office on benefits. Ovidio has an NG tube, Arterial line, and new ostomy. He will need ostomy teaching and probable home health support for nursing when he is ready for discharge. He remains on IV antibiotics and in the ICU. A: Ovidio is a 82 year old Left hemicolectomy: POD#1 s/p sigmoid colon resection and end colostomy. P: Ovidio will be discharged home when medically ready per provider. Anticipate new services through home health nursing. Significant other will transport home at time of discharge.
--- NOTE | 2018-07-20 15:55 | PGE_ITS ---
Date of Service Date of service: 07/20/18 Time of Service: 15:42 Assessment and Plan (1) Diverticulitis of large intestine with abscess: Current visit: Yes Status: Acute Worsening status necessitating Ex-Lap with discovery of perforated abscess - patient is now s/p sigmoid resection and end colostomy. Also on antibiotic therapy with combination Cipro/Flagyl. Surgical specimen with moderate WBCs on Gram Stain, and GNR on cultures. Continue to monitor symptoms closely in the ICU. Qualifiers: Diverticulitis bleeding: without bleeding Qualified Code(s): K57.20 - Diverticulitis of large intestine with perforation and abscess without bleeding (2) Hypotension: Current visit: Yes Status: Acute In setting of Acute Diverticulitis with Perforated Abscess and acute abdomen. Patient's blood pressure is vastly improved following surgical intervention, and now hypertensive. Continue to hold MYRA-I given YEYO this morning. Restarted BB this morning - will initiate moderate dose CCB therapy given consistent systolic values in the 160- 170 this afternoon, with goal of sbp 120-150. Would avoid overt hypotension to allow for adequate renal perfusion. Currently on maintenance fluids. Qualifiers: Hypotension type: unspecified hypotension type Trimester: Qualified Code(s): I95.9 - Hypotension, unspecified (3) CHF (congestive heart failure): Current visit: Yes Status: Chronic Ischemic Cardiomyopathy, with initial LVEF of 35%, now fully recovered by ECHO 09/2017. No evidence of failure or volume overload currently. Continue IVFs, monitor fluid status and daily weights. MYRA-I on hold given both YEYO and NPO status. Will resume Lisinopril when able. Continue BB. (4) CAD (coronary artery disease): Current visit: Yes Status: Chronic History of CAD with [facility] 02/2017, s/p MINNIE to LAD and PCI to the 1st Diag. Patient is more than 12 months out of intervention and insertion of stent - can hold DAPT with aspirin and plavix. Will resume aspirin tomorrow morning, and reinitiate BB therapy as above. Will also resume statin therapy. Qualifiers: Coronary Disease-Associated Artery/Lesion type: [place] artery [place] vs. transplanted heart: Associated angina: without angina (5) Diabetes: Current visit: Yes Status: Chronic Continue to hold metformin while hospitalized. Continue sliding scale coverage. 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 Brooke in place. Qualifiers: Lower urinary tract symptom presence: unspecified whether lower urinary tract symptoms present Lower urinary tract symptom detail: Qualified Code(s): N40.0 - Benign prostatic hyperplasia without lower urinary tract symptoms (7) DVT prophylaxis: Current visit: Yes Status: Acute Resume SC Lovenox. Continue SCDs. PPI initiated for GI Prophylaxis. Subjective Interval history since last seen: 82 year old man with a prior medical history significant for CAD and ICMP, admitted to the surgical service on 07/18 from [facility] Emergency Department with a diagnosis of Diverticular Abscess. Mr. Thompson has a histor of CAD and prior NSTEMI, for which he underwent a LHC with insertion of a MINNIE to the LAD and PCI/Angioplasty of the 1st diag in February of 2018. He had a resultant ICMP with LVEF 35%, fully recovered by repeat ECHO in January of 2018 that also no evidence of wall motion abnormalities. Other medical history includes AAA s/p Endograft repair, DM, HTN, Dyslipidemia, and a prior history of Tobacco use. The patient presented to the ED with complaint of worsening abdominal pain for one week. Imaging showed evidence of a Diverticular Abscess. He was admitted by Dr. Renae and initiated on antibiotic therapy. Further review of imaging by IR at [facility] deemed it appropriate for drainage, with plans for transfer for IR Procedure on the following Friday morning. Mr. Thompson was also noted to be hypertensive initially at time of admission. However, on the morning of 07/19 he was noted to have a change in his status, with worsening symptoms, hypotension, and an acute abdomen by exam. Transfer to [facility] was not possible due to lack of bed availability, and the patient was taken to the OR for an Exploratory Laparotomy - found to have a perforated abscess and underwent a Sigmoid Resection with end Colostomy and insertion of a right sided SC TLC. Medicine service was consulted for medical co-management of patient following his surgery. This morning the patient appears to be doing well. He remains NPO with NGT in place. He is now hypertensive. Labs indicate worsening renal function. No other overnight events reported. Remains afebrile. Exam Narrative Exam Narrative: General: Patient appears comfortable, AAOX3, NAD. NGT in place. Initially OOB in chair, back in bed at time of exam. Skin: Right sided TLC Central Line noted. Neck: Supple CV: Regular, nontachycardic, S1S2, No overt rubs, murmurs, or gallops. Pulmonary: Clear to auscultation bilaterally, no crackles, wheezing, or rhonchi on limited anterior and lateral exam Abdomen: Bowel Sounds diminished, abdomen is distended but appears soft. LLQ Ostomy noted. Vascular: No lower extremity edema Psych: Normal mood and affect. Objective Objective Clinical Data: Abnormal lab results 07/20/18 07/20/18 Range/Units 06:00 06:00 WBC 12.04 H D (4.4-10.8) k/cumm RBC 4.11 L (4.50-6.00) m/cumm Hgb 12.7 L (13.5-17.5) g/dL Hct 38.0 L (40.0-50.0) % Absolute Neutrophils 10.25 H (1.2-6.7) k/cumm Absolute Lymphocytes 0.88 L (1.2-3.4) k/cumm Absolute Monocytes 0.87 H (0.11-0.7) k/cumm BUN 22 H D (7-18) mg/dL Creatinine 1.98 H (0.70-1.30) mg/dL Glucose 210 H (70-100) mg/dL Calcium 8.3 L (8.5-10.1) mg/dL Vital Signs Temperature 36.6 C 07/20/18 08:13 Temperature Source Temporal Artery Scan 07/20/18 08:13 Pulse 63 07/20/18 10:01 Pulse Rhythm Regular 07/19/18 08:23 Pulse 62 07/20/18 10:01 Respiratory Rate 17 07/20/18 10:01 Respiratory Effort 07/20/18 08:13 Respiratory Depth Normal 07/20/18 08:13 Respiratory Pattern Normal 07/20/18 08:13 Blood Pressure 161/67 H 07/20/18 14:09 Blood Pressure Mean 98 07/20/18 14:09 Blood Pressure Position Supine 07/20/18 14:09 Pulse Oximetry 93 L 07/20/18 10:01 Oxygen Delivery Method Room Air 07/20/18 08:13 Oxygen Flow Rate 0 07/20/18 08:13 Pain Level 0 07/20/18 08:13 Intake & Output 07/19/18 07/20/18 07/20/18 23:59 11:59 23:59 Intake Total 2830.417 / 3450.417 1948.833 / 2315.500 366.667 / 2315.500 Output Total 675 / 1025 540 / 590 50 / 590 Balance 2155.417 / 2425.417 1408.833 / 1725.500 316.667 / 1725.500 Weight 87.5 kg 88.6 kg Intake: IV 2830.417 / 3450.417 1898.833 / 2265.500 366.667 / 2265.500 Oral 50 / 50 Output: Gastric Drainage 200 / 450 350 / 400 50 / 400 Right Nare 200 / 450 350 / 400 50 / 400 Urine 275 / 375 175 / 175 Stool 15 / 15 Estimated Blood Loss 200 / 200 Other: Urine Color Light Carmela Dark Carmela Urine Appearance Clear Clear Comment brooke patent pH of 5, Moderate blood, Sg of 1.030 Gastric Occult Blood Right Nare Positive Laboratory Results WBC 12.04 k/cumm (4.4-10.8) H D 07/20/18 06:00 RBC 4.11 m/cumm (4.50-6.00) L 07/20/18 06:00 Hgb 12.7 g/dL (13.5-17.5) L 07/20/18 06:00 Hct 38.0 % (40.0-50.0) L 07/20/18 06:00 MCV 92.5 fL (80-95) 07/20/18 06:00 MCH 30.9 pg (27.0-33.0) 07/20/18 06:00 MCHC 33.4 g/dL (32.0-36.0) 07/20/18 06:00 RDW 12.2 % (11.8-14.1) 07/20/18 06:00 Plt Count 178 x1000/uL (130-400) 07/20/18 06:00 MPV 10.5 fL (8.0-11.0) 07/20/18 06:00 Immature Gran % 0.3 07/20/18 06:00 Neutrophils % 85.1 07/20/18 06:00 Lymphocytes % 7.3 07/20/18 06:00 Monocytes % 7.2 07/20/18 06:00 Eosinophils % 0.0 07/20/18 06:00 Basophils % 0.1 07/20/18 06:00 Absolute Neutrophils 10.25 k/cumm (1.2-6.7) H 07/20/18 06:00 Absolute Lymphocytes 0.88 k/cumm (1.2-3.4) L 07/20/18 06:00 Absolute Monocytes 0.87 k/cumm (0.11-0.7) H 07/20/18 06:00 Absolute Eosinophils 0.00 k/cumm (0.0-0.7) 07/20/18 06:00 Absolute Basophils 0.01 k/cumm (0.0-0.2) 07/20/18 06:00 Differential Comment Manual differential 07/18/18 07:10 RBC Morphology Normal 07/18/18 07:10 Sodium 138 mmol/L (136-145) 07/20/18 06:00 Potassium 4.0 mmol/L (3.5-5.1) 07/20/18 06:00 Chloride 105 mmol/L (98-107) 07/20/18 06:00 Carbon Dioxide 25.0 mmol/L (21.0-32.0) 07/20/18 06:00 Anion Gap 8.0 mmol/L (3-11) 07/20/18 06:00 BUN 22 mg/dL (7-18) H D 07/20/18 06:00 Creatinine 1.98 mg/dL (0.70-1.30) H 07/20/18 06:00 Estimated GFR/1.73 m2 32.60 (mL/min/1.73m2) 07/20/18 06:00 Glucose 210 mg/dL (70-100) H 07/20/18 06:00 Lactate 3.1 mmol/l (0.6-1.4) H 07/19/18 11:40 Calcium 8.3 mg/dL (8.5-10.1) L 07/20/18 06:00 Magnesium 1.5 mg/dL (1.8-2.4) L 07/18/18 07:10 Total Bilirubin 0.6 mg/dL (0.2-1.0) 07/18/18 07:10 AST 19 U/L (15-37) 07/18/18 07:10 ALT 26 U/L (12-78) 07/18/18 07:10 Alkaline Phosphatase 125 U/L (46-116) H 07/18/18 07:10 Total Protein 6.8 g/dL (6.4-8.2) 07/18/18 07:10 Albumin 3.3 g/dL (3.4-5.0) L 07/18/18 07:10 Lipase 135 U/L (73-393) 07/18/18 07:10 Patient ABO/Rh O Positive 07/19/18 11:40 Antibody Screen Negative 07/19/18 11:40
[2018-07-20] MEDS: amLODIPine 5 MG TAB PO (16:11)
--- NOTE | 2018-07-20 16:13 | PGE_ITS ---
Date of Service Date of service: 07/20/18 Time of Service: 16:09 Assessment and Plan (1) S/P left hemicolectomy: Current visit: Yes Status: Acute A\\ Doing well. he is passing air through the colostomy P\\ Clamp NG tube May be able to remove her NG tube tomorrow if he does well over night Appreciate Dr. Conner's help Subjective Interval history since last seen: Mr. Thompson is doing well. He has no complaints. His NG tube is clamped and he has had no Nausea. He has not complained of pain e ither. Exam GI Inspection: incision (dressing is intact) and other (Colostomy is congested appearing. Serosanguinous output and air) Palpation: soft and tender (appropriatly tender to palpation, no rebound) Auscultation: normal bowel sounds Objective Objective Clinical Data: Abnormal lab results 07/20/18 07/20/18 Range/Units 06:00 06:00 WBC 12.04 H D (4.4-10.8) k/cumm RBC 4.11 L (4.50-6.00) m/cumm Hgb 12.7 L (13.5-17.5) g/dL Hct 38.0 L (40.0-50.0) % Absolute Neutrophils 10.25 H (1.2-6.7) k/cumm Absolute Lymphocytes 0.88 L (1.2-3.4) k/cumm Absolute Monocytes 0.87 H (0.11-0.7) k/cumm BUN 22 H D (7-18) mg/dL Creatinine 1.98 H (0.70-1.30) mg/dL Glucose 210 H (70-100) mg/dL Calcium 8.3 L (8.5-10.1) mg/dL Vital Signs Temperature 97.3 F L 07/20/18 12:39 Temperature Source Temporal Artery Scan 07/20/18 12:39 Pulse 72 07/20/18 14:11 Pulse Rhythm Regular 07/19/18 08:23 Pulse 62 07/20/18 15:30 Respiratory Rate 16 07/20/18 15:30 Respiratory Effort 07/20/18 12:39 Respiratory Depth Normal 07/20/18 12:39 Respiratory Pattern Normal 07/20/18 12:39 Blood Pressure 161/69 H 07/20/18 14:11 Blood Pressure Mean 93 07/20/18 14:11 Blood Pressure Position Supine 07/20/18 14:09 Pulse Oximetry 95 07/20/18 15:30 Oxygen Delivery Method Room Air 07/20/18 12:39 Oxygen Flow Rate 0 07/20/18 12:39 Pain Level 0 07/20/18 12:39 Intake & Output 07/19/18 07/20/18 07/20/18 23:59 11:59 23:59 Intake Total 2830.417 / 3450.417 1948.833 / 2315.500 366.667 / 2315.500 Output Total 675 / 1025 540 / 590 50 / 590 Balance 2155.417 / 2425.417 1408.833 / 1725.500 316.667 / 1725.500 Weight 192 lb 14.472 oz 195 lb 5.273 oz Intake: IV 2830.417 / 3450.417 1898.833 / 2265.500 366.667 / 2265.500 Oral 50 / 50 Output: Gastric Drainage 200 / 450 350 / 400 50 / 400 Right Nare 200 / 450 350 / 400 50 / 400 Urine 275 / 375 175 / 175 Stool 15 / 15 Estimated Blood Loss 200 / 200 Other: Urine Color Light Ericka Dark Ericka Urine Appearance Clear Clear Comment brooke patent pH of 5, Moderate blood, Sg of 1.030 Brooke catheter in placed draining dark ericka urine. Had a normal saline bolus of 250 cc this a.m. in and LR infusion increased to 150 cc/hr. Gastric Occult Blood Right Nare Positive Laboratory Results WBC 12.04 k/cumm (4.4-10.8) H D 07/20/18 06:00 RBC 4.11 m/cumm (4.50-6.00) L 07/20/18 06:00 Hgb 12.7 g/dL (13.5-17.5) L 07/20/18 06:00 Hct 38.0 % (40.0-50.0) L 07/20/18 06:00 MCV 92.5 fL (80-95) 07/20/18 06:00 MCH 30.9 pg (27.0-33.0) 07/20/18 06:00 MCHC 33.4 g/dL (32.0-36.0) 07/20/18 06:00 RDW 12.2 % (11.8-14.1) 07/20/18 06:00 Plt Count 178 x1000/uL (130-400) 07/20/18 06:00 MPV 10.5 fL (8.0-11.0) 07/20/18 06:00 Immature Gran % 0.3 07/20/18 06:00 Neutrophils % 85.1 07/20/18 06:00 Lymphocytes % 7.3 07/20/18 06:00 Monocytes % 7.2 07/20/18 06:00 Eosinophils % 0.0 07/20/18 06:00 Basophils % 0.1 07/20/18 06:00 Absolute Neutrophils 10.25 k/cumm (1.2-6.7) H 07/20/18 06:00 Absolute Lymphocytes 0.88 k/cumm (1.2-3.4) L 07/20/18 06:00 Absolute Monocytes 0.87 k/cumm (0.11-0.7) H 07/20/18 06:00 Absolute Eosinophils 0.00 k/cumm (0.0-0.7) 07/20/18 06:00 Absolute Basophils 0.01 k/cumm (0.0-0.2) 07/20/18 06:00 Differential Comment Manual differential 07/18/18 07:10 RBC Morphology Normal 07/18/18 07:10 Sodium 138 mmol/L (136-145) 07/20/18 06:00 Potassium 4.0 mmol/L (3.5-5.1) 07/20/18 06:00 Chloride 105 mmol/L (98-107) 07/20/18 06:00 Carbon Dioxide 25.0 mmol/L (21.0-32.0) 07/20/18 06:00 Anion Gap 8.0 mmol/L (3-11) 07/20/18 06:00 BUN 22 mg/dL (7-18) H D 07/20/18 06:00 Creatinine 1.98 mg/dL (0.70-1.30) H 07/20/18 06:00 Estimated GFR/1.73 m2 32.60 (mL/min/1.73m2) 07/20/18 06:00 Glucose 210 mg/dL (70-100) H 07/20/18 06:00 Lactate 3.1 mmol/l (0.6-1.4) H 07/19/18 11:40 Calcium 8.3 mg/dL (8.5-10.1) L 07/20/18 06:00 Magnesium 1.5 mg/dL (1.8-2.4) L 07/18/18 07:10 Total Bilirubin 0.6 mg/dL (0.2-1.0) 07/18/18 07:10 AST 19 U/L (15-37) 07/18/18 07:10 ALT 26 U/L (12-78) 07/18/18 07:10 Alkaline Phosphatase 125 U/L (46-116) H 07/18/18 07:10 Total Protein 6.8 g/dL (6.4-8.2) 07/18/18 07:10 Albumin 3.3 g/dL (3.4-5.0) L 07/18/18 07:10 Lipase 135 U/L (73-393) 07/18/18 07:10 Patient ABO/Rh O Positive 07/19/18 11:40 Antibody Screen Negative 07/19/18 11:40
[2018-07-20] MEDS: Lactated Ringers 1,000 ML 150 ML IV (16:18)
--- NOTE | 2018-07-20 17:17 | CMPROGNOTE_ITS ---
- If Service Date Differs Date of service: 07/20/18 Time of Service: 15:49 Care Management Progress Note S/O: CM met with Ovidio at the bedside he is alert and engaged with CM. He states he is only having pain when he coughs. 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 He has questions related to his benefits and hospital assistance. His significant other Montse is going to follow up with the business office on benefits. Ovidio has an NG tube, Arterial line, and new ostomy. He will need ostomy teaching and probable home health support for nursing when he is ready for discharge. He remains on IV antibiotics and in the ICU. A: Ovidio is a 82 year old Left hemicolectomy: POD#1 s/p sigmoid colon resection and end colostomy. P: Ovidio will be discharged home when medically ready per provider. Anticipate new services through home health nursing. Significant other will transport home at time of discharge.
[2018-07-20] MEDS: Pantoprazole 40 MG VIAL IVP (19:49)
[2018-07-20] MEDS: Atorvastatin 40 MG TAB PO (19:49)
[2018-07-21] VITALS (22 sets, daily range): BP systolic 120–174; BP diastolic 65–86; PULSE 53–87; RESP 10–25; TEMP 36.1–37; O2SAT 93–95
[2018-07-21] MEDS: Lactated Ringers 1,000 ML 125 ML IV (00:56)
[2018-07-21] MEDS: ACETAMINOPHEN 1,000 MG/100 ML BTL 400 MG IVPB (03:50)
[2018-07-21] MEDS: Insulin Aspart 300 UNITS/3 ML PEN SC ×3 (06:00→23:53)
--- NOTE | 2018-07-21 07:24 | W.PM.PROGNOT ---
Date of Service Date of service: 07/21/18 Time of Service: 07:05 Assessment and Plan (1) S/P left hemicolectomy: Current visit: Yes Status: Acute A\\ Doing well. There is air in his ostomy bag. Minimal fluid. BS are normoactive. P\\ NG removed Diet: clear liquids Abdominal wound- continue BID dressing changes for now. (2) DVT prophylaxis: Current visit: Yes Status: Acute On lovenox ASA to start today (3) CAD (coronary artery disease): Current visit: Yes Status: Chronic Appreciate assistance from Dr. Conner to titrate his BP medications Qualifiers: Associated angina: without angina Coronary Disease-Associated Artery/Lesion type: [place] artery [place] vs. transplanted heart: [place] heart Qualified Code(s): I25.10 - Atherosclerotic heart disease of [place] coronary artery without angina pectoris (4) Renal insufficiency: Current visit: Yes Status: Chronic A\\ CR improving Good urine output (5) Hypertension: Current visit: Yes Status: Chronic BP meds per Dr. Conner Qualifiers: Hypertension type: unspecified Qualified Code(s): I10 - Essential (primary) hypertension (6) Diabetes: Current visit: Yes Status: Chronic Continue with Insulin sliding scale and blood sugar checks Qualifiers: Chronic kidney disease stage: stage 2 (mild) Diabetes mellitus complication detail: with chronic kidney disease Diabetes mellitus complication status: with kidney complications Diabetes mellitus detention insulin use: without long term care administrator use Diabetes mellitus macular edema: Diabetes mellitus type: type 2 Diabetic retinopathy severity: Laterality: Proliferative retinopathy type: Qualified Code(s): E11.22 - Type 2 diabetes mellitus with diabetic chronic kidney disease; N18.2 - Chronic kidney disease, stage 2 (mild) (7) Hypomagnesemia: Current visit: Yes Status: Acute A\\ mag 1.5 P\\ Replace with 4 gm of IV magnesium Subjective Interval history since last seen: Cesar is doing OK. He slept 6 hours last night. He is very grumpy this morning. Upset about his ostomy. No pain Exam Resp Effort & Inspection: normal respiratory effort Auscultation: clear to auscultation bilaterally Cardio Rate: regular rate Rhythm: regular rhythm Heart Sounds: no gallops, no murmurs and no rubs GI Inspection: incision (dressing just changed. per nurse wound is c/d) Palpation: soft and tender (mild tendernes, no guarding) Auscultation: normal bowel sounds and other (abdominal wall edema) Extrem Right upper extremity: edema (upper extremities) Objective Objective Clinical Data: Vital Signs Temperature 98.6 F 07/21/18 04:00 Temperature Source Tympanic 07/21/18 04:00 Pulse 81 07/21/18 04:00 Pulse Rhythm Regular 07/19/18 08:23 Pulse 84 07/21/18 02:01 Respiratory Rate 16 07/21/18 04:00 Respiratory Effort 07/21/18 04:00 Respiratory Depth Normal 07/21/18 04:00 Respiratory Pattern Normal 07/21/18 04:00 Blood Pressure 155/65 H 07/21/18 04:00 Blood Pressure Mean 95 07/21/18 04:00 Blood Pressure Position Supine 07/21/18 04:00 Pulse Oximetry 93 L 07/21/18 04:00 Oxygen Delivery Method Room Air 07/21/18 04:00 Oxygen Flow Rate 0 07/21/18 04:00 Pain Level 0 07/21/18 04:00 Intake & Output 07/20/18 07/20/18 07/21/18 11:59 23:59 11:59 Intake Total 2148.833 / 3395.500 1246.667 / 3395.500 2240 / 2240 Output Total 540 / 600 60 / 600 750 / 750 Balance 1608.833 / 2795.500 1186.667 / 2795.500 1490 / 1490 Weight 195 lb 5.273 oz Intake: IV 2098.833 / 3315.500 1216.667 / 3315.500 2190 / 2190 Oral 50 / 80 30 / 80 50 / 50 Output: Gastric Drainage 350 / 400 50 / 400 Right Nare 350 / 400 50 / 400 Urine 175 / 175 750 / 750 Stool 15 / 25 10 / 25 Other: Urine Color Dark Ericka Yellow Urine Appearance Clear Clear Comment pH of 5, Moderate blood, Sg of 1.030 brooke to gravity with light colored ericka urine in it Indwelling brooke with ericka urine QS. Gastric Occult Blood Right Nare Positive Voiding Methods Toilet Laboratory Results WBC 12.04 k/cumm (4.4-10.8) H D 07/20/18 06:00 RBC 4.11 m/cumm (4.50-6.00) L 07/20/18 06:00 Hgb 12.7 g/dL (13.5-17.5) L 07/20/18 06:00 Hct 38.0 % (40.0-50.0) L 07/20/18 06:00 MCV 92.5 fL (80-95) 07/20/18 06:00 MCH 30.9 pg (27.0-33.0) 07/20/18 06:00 MCHC 33.4 g/dL (32.0-36.0) 07/20/18 06:00 RDW 12.2 % (11.8-14.1) 07/20/18 06:00 Plt Count 178 x1000/uL (130-400) 07/20/18 06:00 MPV 10.5 fL (8.0-11.0) 07/20/18 06:00 Immature Gran % 0.3 07/20/18 06:00 Neutrophils % 85.1 07/20/18 06:00 Lymphocytes % 7.3 07/20/18 06:00 Monocytes % 7.2 07/20/18 06:00 Eosinophils % 0.0 07/20/18 06:00 Basophils % 0.1 07/20/18 06:00 Absolute Neutrophils 10.25 k/cumm (1.2-6.7) H 07/20/18 06:00 Absolute Lymphocytes 0.88 k/cumm (1.2-3.4) L 07/20/18 06:00 Absolute Monocytes 0.87 k/cumm (0.11-0.7) H 07/20/18 06:00 Absolute Eosinophils 0.00 k/cumm (0.0-0.7) 07/20/18 06:00 Absolute Basophils 0.01 k/cumm (0.0-0.2) 07/20/18 06:00 Differential Comment Manual differential 07/18/18 07:10 RBC Morphology Normal 07/18/18 07:10 Sodium 138 mmol/L (136-145) 07/20/18 06:00 Potassium 4.0 mmol/L (3.5-5.1) 07/20/18 06:00 Chloride 105 mmol/L (98-107) 07/20/18 06:00 Carbon Dioxide 25.0 mmol/L (21.0-32.0) 07/20/18 06:00 Anion Gap 8.0 mmol/L (3-11) 07/20/18 06:00 BUN 22 mg/dL (7-18) H D 07/20/18 06:00 Creatinine 1.98 mg/dL (0.70-1.30) H 07/20/18 06:00 Estimated GFR/1.73 m2 32.60 (mL/min/1.73m2) 07/20/18 06:00 Glucose 210 mg/dL (70-100) H 07/20/18 06:00 Lactate 3.1 mmol/l (0.6-1.4) H 07/19/18 11:40 Calcium 8.3 mg/dL (8.5-10.1) L 07/20/18 06:00 Magnesium 1.5 mg/dL (1.8-2.4) L 07/18/18 07:10 Total Bilirubin 0.6 mg/dL (0.2-1.0) 07/18/18 07:10 AST 19 U/L (15-37) 07/18/18 07:10 ALT 26 U/L (12-78) 07/18/18 07:10 Alkaline Phosphatase 125 U/L (46-116) H 07/18/18 07:10 Total Protein 6.8 g/dL (6.4-8.2) 07/18/18 07:10 Albumin 3.3 g/dL (3.4-5.0) L 07/18/18 07:10 Lipase 135 U/L (73-393) 07/18/18 07:10 Patient ABO/Rh O Positive 07/19/18 11:40 Antibody Screen Negative 07/19/18 11:40
[2018-07-21 08:03] LABS: Abs Immature Grans 0.04 k/cumm (0.0-0.09); Absolute Eosinophil Count 0.53 k/cumm (0.0-0.7); Absolute Lymphocyte Count 1.19 k/cumm (1.2-3.4); Absolute Monocyte Count 1.15 k/cumm (0.11-0.7); Basophils % 0.2; Eosinophils % 4.1; HCT 36.3 % (40.0-50.0); HGB 12.1 g/dL (13.5-17.5); Immature Grans % 0.3; Lymphocytes % 9.2; Mean Corp. HGB Concentration 33.3 g/dL (32.0-36.0); Mean Corpuscular Hemoglobin 31.1 pg (27.0-33.0); Mean Corpuscular Volume 93.3 fL (80-95); Mean Platelet Volume 11.1 fL (8.0-11.0); Monocytes % 8.9; Neutrophils % 77.3; Platelet Count 186 x1000/uL (130-400); RBC 3.89 m/cumm (4.50-6.00); RBC Distribution Width 12.2 % (11.8-14.1); White Blood Cell Count 12.95 k/cumm (4.4-10.8)
[2018-07-21 08:10] LABS: Absolute Basophil Count 0.03 k/cumm (0.0-0.2); Absolute Neutrophil Count 10.01 k/cumm (1.2-6.7)
[2018-07-21 08:23] LABS: Anion Gap 7.5 mmol/L (3-11); BUN 18 mg/dL (7-18); CO2 26.5 mmol/L (21.0-32.0); CREATININE 1.62 mg/dL (0.70-1.30); Calcium 8.4 mg/dL (8.5-10.1); Chloride 106 mmol/L (98-107); Glucose 171 mg/dL (70-100); Magnesium 1.5 mg/dL (1.8-2.4); Potassium 3.5 mmol/L (3.5-5.1); Sodium 140 mmol/L (136-145)
[2018-07-21] MEDS: Aspirin 81 MG CHEW PO (08:49)
[2018-07-21] MEDS: Furosemide 20 MG/2 ML VIAL IVP (08:49)
[2018-07-21] MEDS: amLODIPine 10 MG TAB PO (08:50)
[2018-07-21] MEDS: Lactated Ringers 1,000 ML 80 ML IV (08:50)
[2018-07-21] MEDS: MetroNIDAZOLE 500 MG/100 ML BAG 100 MG IVPB ×3 (08:50→23:52)
[2018-07-21 09:29] LABS: Lactate-non-spesis 1.9 mmol/l (0.6-1.4)
[2018-07-21] MEDS: CIPROFLOXACIN 400 MG/200 ML BAG 200 MG IVPB ×3 (10:30→21:59)
[2018-07-21] MEDS: MAGNESIUM SULFATE 4 GM/100 ML BAG IVPB (10:30)
[2018-07-21] MEDS: Potassium Chloride Liquid 20 MEQ PKT 40 MEQ PO (10:58)
[2018-07-21] MEDS: Metoprolol 25 MG TAB PO ×2 (12:20→23:52)
[2018-07-21] MEDS: POTASSIUM CHLORIDE 10 MEQ/100 ML BAG 100 MEQ IVPB (13:40)
--- NOTE | 2018-07-21 15:35 | W.PM.PROGNOT ---
Date of Service Date of service: 07/21/18 Time of Service: 15:36 Assessment and Plan (1) S/P left hemicolectomy: Current visit: Yes Status: Acute A\\ Doing very well on POD#2 Ostomy working He is edematous P\\ Saline lock IV Continue clear liquid diet Appreciate Dr. allred assisting with BP and kidney injury management Subjective Interval history since last seen: Doing well. Was up and walking. Tolerating clear liquids without N/V. Exam Resp Effort & Inspection: normal respiratory effort Auscultation: clear to auscultation bilaterally Cardio Rate: regular rate Rhythm: regular rhythm Heart Sounds: no gallops, no murmurs and no rubs GI Inspection: incision (c/d/i) Palpation: soft and tender (mild tenderness lower abdomen) Auscultation: normal bowel sounds Other: Colostomy- putting out liquid stool and air Objective Objective Clinical Data: Abnormal lab results 07/21/18 07/21/18 07/21/18 Range/Units 06:55 06:55 09:12 WBC 12.95 H (4.4-10.8) k/cumm RBC 3.89 L (4.50-6.00) m/cumm Hgb 12.1 L (13.5-17.5) g/dL Hct 36.3 L (40.0-50.0) % MPV 11.1 H (8.0-11.0) fL Absolute Neutrophils 10.01 H (1.2-6.7) k/cumm Absolute Lymphocytes 1.19 L (1.2-3.4) k/cumm Absolute Monocytes 1.15 H (0.11-0.7) k/cumm Creatinine 1.62 H (0.70-1.30) mg/dL Glucose 171 H (70-100) mg/dL Lactate 1.9 H (0.6-1.4) mmol/l Calcium 8.4 L (8.5-10.1) mg/dL Magnesium 1.5 L (1.8-2.4) mg/dL Vital Signs Temperature 98.1 F 07/21/18 08:20 Temperature Source Temporal Artery Scan 07/21/18 08:20 Pulse 53 L 07/21/18 14:01 Pulse Rhythm Regular 07/19/18 08:23 Pulse 56 L 07/21/18 14:01 Respiratory Rate 15 07/21/18 14:01 Respiratory Effort 07/21/18 04:00 Respiratory Depth Normal 07/21/18 04:00 Respiratory Pattern Normal 07/21/18 04:00 Blood Pressure 120/72 07/21/18 14:01 Blood Pressure Mean 80 07/21/18 14:01 Blood Pressure Position Supine 07/21/18 04:00 Pulse Oximetry 94 L 07/21/18 14:01 Oxygen Delivery Method Room Air 07/21/18 04:00 Oxygen Flow Rate 0 07/21/18 04:00 Pain Level 0 07/21/18 04:00 Intake & Output 07/20/18 07/21/18 07/21/18 23:59 11:59 23:59 Intake Total 1246.667 / 3395.500 4219.500 / 4219.500 Output Total 60 / 600 3410 / 4450 1040 / 4450 Balance 1186.667 / 2795.500 809.500 / -230.500 -1040 / -230.500 Weight 201 lb 11.567 oz Intake: IV 1216.667 / 3315.500 3429.500 / 3429.500 Oral 30 / 80 790 / 790 Output: Gastric Drainage 50 / 400 Right Nare 50 / 400 Urine 3375 / 4375 1000 / 4375 Stool 35 / 75 40 / 75 Other: Urine Color Pale Pale Yellow Yellow Urine Appearance Clear Clear Comment brooke to gravity with light colored ericka urine in it Indwelling brooke with ericka urine QS. Gastric Occult Blood Right Nare Positive Voiding Methods Toilet Laboratory Results WBC 12.95 k/cumm (4.4-10.8) H 07/21/18 06:55 RBC 3.89 m/cumm (4.50-6.00) L 07/21/18 06:55 Hgb 12.1 g/dL (13.5-17.5) L 07/21/18 06:55 Hct 36.3 % (40.0-50.0) L 07/21/18 06:55 MCV 93.3 fL (80-95) 07/21/18 06:55 MCH 31.1 pg (27.0-33.0) 07/21/18 06:55 MCHC 33.3 g/dL (32.0-36.0) 07/21/18 06:55 RDW 12.2 % (11.8-14.1) 07/21/18 06:55 Plt Count 186 x1000/uL (130-400) 07/21/18 06:55 MPV 11.1 fL (8.0-11.0) H 07/21/18 06:55 Immature Gran % 0.3 07/21/18 06:55 Neutrophils % 77.3 07/21/18 06:55 Lymphocytes % 9.2 07/21/18 06:55 Monocytes % 8.9 07/21/18 06:55 Eosinophils % 4.1 07/21/18 06:55 Basophils % 0.2 07/21/18 06:55 Absolute Neutrophils 10.01 k/cumm (1.2-6.7) H 07/21/18 06:55 Absolute Lymphocytes 1.19 k/cumm (1.2-3.4) L 07/21/18 06:55 Absolute Monocytes 1.15 k/cumm (0.11-0.7) H 07/21/18 06:55 Absolute Eosinophils 0.53 k/cumm (0.0-0.7) 07/21/18 06:55 Absolute Basophils 0.03 k/cumm (0.0-0.2) 07/21/18 06:55 Differential Comment Manual differential 07/18/18 07:10 RBC Morphology Normal 07/18/18 07:10 Sodium 140 mmol/L (136-145) 07/21/18 06:55 Potassium 3.5 mmol/L (3.5-5.1) 07/21/18 06:55 Chloride 106 mmol/L (98-107) 07/21/18 06:55 Carbon Dioxide 26.5 mmol/L (21.0-32.0) 07/21/18 06:55 Anion Gap 7.5 mmol/L (3-11) 07/21/18 06:55 BUN 18 mg/dL (7-18) 07/21/18 06:55 Creatinine 1.62 mg/dL (0.70-1.30) H 07/21/18 06:55 Estimated GFR/1.73 m2 41.10 (mL/min/1.73m2) 07/21/18 06:55 Glucose 171 mg/dL (70-100) H 07/21/18 06:55 Lactate 1.9 mmol/l (0.6-1.4) H 07/21/18 09:12 Calcium 8.4 mg/dL (8.5-10.1) L 07/21/18 06:55 Magnesium 1.5 mg/dL (1.8-2.4) L 07/21/18 06:55 Total Bilirubin 0.6 mg/dL (0.2-1.0) 07/18/18 07:10 AST 19 U/L (15-37) 07/18/18 07:10 ALT 26 U/L (12-78) 07/18/18 07:10 Alkaline Phosphatase 125 U/L (46-116) H 07/18/18 07:10 Total Protein 6.8 g/dL (6.4-8.2) 07/18/18 07:10 Albumin 3.3 g/dL (3.4-5.0) L 07/18/18 07:10 Lipase 135 U/L (73-393) 07/18/18 07:10 Patient ABO/Rh O Positive 07/19/18 11:40 Antibody Screen Negative 07/19/18 11:40
[2018-07-21] MEDS: Enoxaparin 40 MG/0.4 ML SYR SC (16:19)
--- NOTE | 2018-07-21 16:30 | W.PM.PROGNOT ---
Date of Service Date of service: 07/21/18 Time of Service: 16:30 Assessment and Plan (1) Diverticulitis of large intestine with abscess: Current visit: Yes Status: Acute Worsening status necessitating Ex-Lap on 07/19 with discovery of perforated abscess - patient is now s/p sigmoid resection and end colostomy. Also on antibiotic therapy with combination Cipro/Flagyl. Surgical specimen with moderate WBCs on Gram Stain, E. Coli on cultures. Continue to monitor symptoms closely in the ICU. Qualifiers: Diverticulitis bleeding: without bleeding Qualified Code(s): K57.20 - Diverticulitis of large intestine with perforation and abscess without bleeding (2) Hypotension: Current visit: Yes Status: Acute In setting of Acute Diverticulitis with Perforated Abscess and acute abdomen. Patient's blood pressure is vastly improved following surgical intervention, and now hypertensive. Continue to hold MYRA-I given recent YEYO. Restarted BB, initiated moderate dose CCB therapy yesterday given consistently elevated systolic values. Will increase to max dose Amlodipine, and continue BB with goal of sbp 120-150. Would avoid overt hypotension to allow for adequate renal perfusion. Given overall volume overload also administered low dose IV Diuretic this morning, with good results. Continue to monitor. Qualifiers: Hypotension type: unspecified hypotension type Trimester: Qualified Code(s): I95.9 - Hypotension, unspecified (3) CHF (congestive heart failure): Current visit: Yes Status: Chronic Ischemic Cardiomyopathy, with initial LVEF of 35%, now fully recovered by ECHO 09/2017. No evidence of failure or volume overload currently. Continue IVFs, monitor fluid status and daily weights. MYRA-I on hold given recent YEYO. Will resume Lisinopril when able. Continue BB. (4) CAD (coronary artery disease): Current visit: Yes Status: Chronic History of CAD with [facility] 02/2017, s/p MINNIE to LAD and PCI to the 1st Diag. Patient is more than 12 months out of intervention and insertion of stent - can hold DAPT with aspirin and plavix. Will resume aspirin this morning, and continue BB therapy as above. Also resumed statin therapy. Qualifiers: Coronary Disease-Associated Artery/Lesion type: [place] artery [place] vs. transplanted heart: [place] heart Associated angina: without angina Qualified Code(s): I25.10 - Atherosclerotic heart disease of [place] coronary artery without angina pectoris (5) Diabetes: Current visit: Yes Status: Chronic Continue to hold metformin while hospitalized. Continue sliding scale coverage. 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 Brooke in place. Qualifiers: Lower urinary tract symptom presence: unspecified whether lower urinary tract symptoms present Lower urinary tract symptom detail: Qualified Code(s): N40.0 - Benign prostatic hyperplasia without lower urinary tract symptoms (7) DVT prophylaxis: Current visit: Yes Status: Acute Continue SC Lovenox. Continue SCDs. PPI initiated for GI Prophylaxis. Subjective Interval history since last seen: 82 year old man with a prior medical history significant for CAD and ICMP, admitted to the surgical service on 07/18 from [facility] Emergency Department with a diagnosis of Diverticular Abscess. Mr. Thompson has a histor of CAD and prior NSTEMI, for which he underwent a LHC with insertion of a MINNIE to the LAD and PCI/Angioplasty of the 1st diag in February of 2018. He had a resultant ICMP with LVEF 35%, fully recovered by repeat ECHO in January of 2018 that also no evidence of wall motion abnormalities. Other medical history includes AAA s/p Endograft repair, DM, HTN, Dyslipidemia, and a prior history of Tobacco use. The patient presented to the ED with complaint of worsening abdominal pain for one week. Imaging showed evidence of a Diverticular Abscess. He was admitted by Dr. Renae and initiated on antibiotic therapy. Further review of imaging by IR at [facility] deemed it appropriate for drainage, with plans for transfer for IR Procedure on the following Friday morning. Mr. Thompson was also noted to be hypertensive initially at time of admission. However, on the morning of 07/19 he was noted to have a change in his status, with worsening symptoms, hypotension, and an acute abdomen by exam. Transfer to [facility] was not possible due to lack of bed availability, and the patient was taken to the OR for an Exploratory Laparotomy - found to have a perforated abscess and underwent a Sigmoid Resection with end Colostomy and insertion of a right sided SC TLC. Medicine service was consulted for medical co-management of patient following his surgery. This morning the patient continues to be doing well. His arterial line and NGT are now removed, and he was started on clear liquids. He continues to be hypertensive but not overtly so. Labs with improved renal function. No other overnight events reported. Remains afebrile. Exam Narrative Exam Narrative: General: Patient appears comfortable, AAOX3, NAD. NGT in place. Initially OOB in chair, back in bed at time of exam. Skin: Right sided TLC Central Line noted. Neck: Supple CV: Regular, nontachycardic, S1S2, No overt rubs, murmurs, or gallops. Pulmonary: Clear to auscultation bilaterally, no crackles, wheezing, or rhonchi on limited anterior and lateral exam Abdomen: Bowel Sounds diminished, abdomen is distended but appears soft. LLQ Ostomy noted. Vascular: No lower extremity edema Psych: Normal mood and affect. Objective Objective Clinical Data: Abnormal lab results 07/21/18 07/21/18 07/21/18 Range/Units 06:55 06:55 09:12 WBC 12.95 H (4.4-10.8) k/cumm RBC 3.89 L (4.50-6.00) m/cumm Hgb 12.1 L (13.5-17.5) g/dL Hct 36.3 L (40.0-50.0) % MPV 11.1 H (8.0-11.0) fL Absolute Neutrophils 10.01 H (1.2-6.7) k/cumm Absolute Lymphocytes 1.19 L (1.2-3.4) k/cumm Absolute Monocytes 1.15 H (0.11-0.7) k/cumm Creatinine 1.62 H (0.70-1.30) mg/dL Glucose 171 H (70-100) mg/dL Lactate 1.9 H (0.6-1.4) mmol/l Calcium 8.4 L (8.5-10.1) mg/dL Magnesium 1.5 L (1.8-2.4) mg/dL Vital Signs Temperature 36.7 C 07/21/18 08:20 Temperature Source Temporal Artery Scan 07/21/18 08:20 Pulse 53 L 07/21/18 14:01 Pulse Rhythm Regular 07/19/18 08:23 Pulse 56 L 07/21/18 14:01 Respiratory Rate 15 07/21/18 14:01 Respiratory Effort 07/21/18 04:00 Respiratory Depth Normal 07/21/18 04:00 Respiratory Pattern Normal 07/21/18 04:00 Blood Pressure 120/72 07/21/18 14:01 Blood Pressure Mean 80 07/21/18 14:01 Blood Pressure Position Supine 07/21/18 04:00 Pulse Oximetry 94 L 07/21/18 14:01 Oxygen Delivery Method Room Air 07/21/18 04:00 Oxygen Flow Rate 0 07/21/18 04:00 Pain Level 0 07/21/18 04:00 Intake & Output 07/20/18 07/21/18 07/21/18 23:59 11:59 23:59 Intake Total 1246.667 / 3395.500 4219.500 / 4778.167 558.667 / 4778.167 Output Total 60 / 600 3410 / 4450 1040 / 4450 Balance 1186.667 / 2795.500 809.500 / 328.167 -481.333 / 328.167 Weight 91.5 kg Intake: IV 1216.667 / 3315.500 3429.500 / 3988.167 558.667 / 3988.167 Oral 30 / 80 790 / 790 Output: Gastric Drainage 50 / 400 Right Nare 50 / 400 Urine 3375 / 4375 1000 / 4375 Stool 35 / 75 40 / 75 Other: Urine Color Pale Pale Yellow Yellow Urine Appearance Clear Clear Comment brooke to gravity with light colored ericka urine in it Indwelling brooke with ericka urine QS. Gastric Occult Blood Right Nare Positive Voiding Methods Toilet Laboratory Results WBC 12.95 k/cumm (4.4-10.8) H 07/21/18 06:55 RBC 3.89 m/cumm (4.50-6.00) L 07/21/18 06:55 Hgb 12.1 g/dL (13.5-17.5) L 07/21/18 06:55 Hct 36.3 % (40.0-50.0) L 07/21/18 06:55 MCV 93.3 fL (80-95) 07/21/18 06:55 MCH 31.1 pg (27.0-33.0) 07/21/18 06:55 MCHC 33.3 g/dL (32.0-36.0) 07/21/18 06:55 RDW 12.2 % (11.8-14.1) 07/21/18 06:55 Plt Count 186 x1000/uL (130-400) 07/21/18 06:55 MPV 11.1 fL (8.0-11.0) H 07/21/18 06:55 Immature Gran % 0.3 07/21/18 06:55 Neutrophils % 77.3 07/21/18 06:55 Lymphocytes % 9.2 07/21/18 06:55 Monocytes % 8.9 07/21/18 06:55 Eosinophils % 4.1 07/21/18 06:55 Basophils % 0.2 07/21/18 06:55 Absolute Neutrophils 10.01 k/cumm (1.2-6.7) H 07/21/18 06:55 Absolute Lymphocytes 1.19 k/cumm (1.2-3.4) L 07/21/18 06:55 Absolute Monocytes 1.15 k/cumm (0.11-0.7) H 07/21/18 06:55 Absolute Eosinophils 0.53 k/cumm (0.0-0.7) 07/21/18 06:55 Absolute Basophils 0.03 k/cumm (0.0-0.2) 07/21/18 06:55 Differential Comment Manual differential 07/18/18 07:10 RBC Morphology Normal 07/18/18 07:10 Sodium 140 mmol/L (136-145) 07/21/18 06:55 Potassium 3.5 mmol/L (3.5-5.1) 07/21/18 06:55 Chloride 106 mmol/L (98-107) 07/21/18 06:55 Carbon Dioxide 26.5 mmol/L (21.0-32.0) 07/21/18 06:55 Anion Gap 7.5 mmol/L (3-11) 07/21/18 06:55 BUN 18 mg/dL (7-18) 07/21/18 06:55 Creatinine 1.62 mg/dL (0.70-1.30) H 07/21/18 06:55 Estimated GFR/1.73 m2 41.10 (mL/min/1.73m2) 07/21/18 06:55 Glucose 171 mg/dL (70-100) H 07/21/18 06:55 Lactate 1.9 mmol/l (0.6-1.4) H 07/21/18 09:12 Calcium 8.4 mg/dL (8.5-10.1) L 07/21/18 06:55 Magnesium 1.5 mg/dL (1.8-2.4) L 07/21/18 06:55 Total Bilirubin 0.6 mg/dL (0.2-1.0) 07/18/18 07:10 AST 19 U/L (15-37) 07/18/18 07:10 ALT 26 U/L (12-78) 07/18/18 07:10 Alkaline Phosphatase 125 U/L (46-116) H 07/18/18 07:10 Total Protein 6.8 g/dL (6.4-8.2) 07/18/18 07:10 Albumin 3.3 g/dL (3.4-5.0) L 07/18/18 07:10 Lipase 135 U/L (73-393) 07/18/18 07:10 Patient ABO/Rh O Positive 07/19/18 11:40 Antibody Screen Negative 07/19/18 11:40
--- NOTE | 2018-07-21 16:37 | PGE_ITS ---
Date of Service Date of service: 07/21/18 Time of Service: 16:30 Assessment and Plan (1) Diverticulitis of large intestine with abscess: Current visit: Yes Status: Acute Worsening status necessitating Ex-Lap on 07/19 with discovery of perforated abscess - patient is now s/p sigmoid resection and end colostomy. Also on antibiotic therapy with combination Cipro/Flagyl. Surgical specimen with moderate WBCs on Gram Stain, E. Coli on cultures. Continue to monitor symptoms closely in the ICU. Qualifiers: Diverticulitis bleeding: without bleeding Qualified Code(s): K57.20 - Diverticulitis of large intestine with perforation and abscess without bleeding (2) Hypotension: Current visit: Yes Status: Acute In setting of Acute Diverticulitis with Perforated Abscess and acute abdomen. Patient's blood pressure is vastly improved following surgical intervention, and now hypertensive. Continue to hold MYRA-I given recent YEYO. Restarted BB, initiated moderate dose CCB therapy yesterday given consistently elevated systolic values. Will increase to max dose Amlodipine, and continue BB with goal of sbp 120-150. Would avoid overt hypotension to allow for adequate renal perfusion. Given overall volume overload also administered low dose IV Diuretic this morning, with good results. Continue to monitor. Qualifiers: Hypotension type: unspecified hypotension type Trimester: Qualified Code(s): I95.9 - Hypotension, unspecified (3) CHF (congestive heart failure): Current visit: Yes Status: Chronic Ischemic Cardiomyopathy, with initial LVEF of 35%, now fully recovered by ECHO 09/2017. No evidence of failure or volume overload currently. Continue IVFs, monitor fluid status and daily weights. MYRA-I on hold given recent YEYO. Will resume Lisinopril when able. Continue BB. (4) CAD (coronary artery disease): Current visit: Yes Status: Chronic History of CAD with [facility] 02/2017, s/p MINNIE to LAD and PCI to the 1st Diag. Patient is more than 12 months out of intervention and insertion of stent - can hold DAPT with aspirin and plavix. Will resume aspirin this morning, and continue BB therapy as above. Also resumed statin therapy. Qualifiers: Coronary Disease-Associated Artery/Lesion type: [place] artery [place] vs. transplanted heart: [place] heart Associated angina: without angina Qualified Code(s): I25.10 - Atherosclerotic heart disease of [place] coronary artery without angina pectoris (5) Diabetes: Current visit: Yes Status: Chronic Continue to hold metformin while hospitalized. Continue sliding scale coverage. 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 Brooke in place. Qualifiers: Lower urinary tract symptom presence: unspecified whether lower urinary tract symptoms present Lower urinary tract symptom detail: Qualified Code(s): N40.0 - Benign prostatic hyperplasia without lower urinary tract symptoms (7) DVT prophylaxis: Current visit: Yes Status: Acute Continue SC Lovenox. Continue SCDs. PPI initiated for GI Prophylaxis. Subjective Interval history since last seen: 82 year old man with a prior medical history significant for CAD and ICMP, admitted to the surgical service on 07/18 from [facility] Emergency Department with a diagnosis of Diverticular Abscess. Mr. Thompson has a histor of CAD and prior NSTEMI, for which he underwent a LHC with insertion of a MINNIE to the LAD and PCI/Angioplasty of the 1st diag in February of 2018. He had a resultant ICMP with LVEF 35%, fully recovered by repeat ECHO in January of 2018 that also no evidence of wall motion abnormalities. Other medical history includes AAA s/p Endograft repair, DM, HTN, Dyslipidemia, and a prior history of Tobacco use. The patient presented to the ED with complaint of worsening abdominal pain for one week. Imaging showed evidence of a Diverticular Abscess. He was admitted by Dr. Renae and initiated on antibiotic therapy. Further review of imaging by IR at [facility] deemed it appropriate for drainage, with plans for transfer for IR Procedure on the following Friday morning. Mr. Thompson was also noted to be hypertensive initially at time of admission. However, on the morning of 07/19 he was noted to have a change in his status, with worsening symptoms, hypotension, and an acute abdomen by exam. Transfer to [facility] was not possible due to lack of bed availability, and the patient was taken to the OR for an Exploratory Laparotomy - found to have a perforated abscess and underwent a Sigmoid Resection with end Colostomy and insertion of a right sided SC TLC. Medicine service was consulted for medical co-management of patient following his surgery. This morning the patient continues to be doing well. His arterial line and NGT are now removed, and he was started on clear liquids. He continues to be hypertensive but not overtly so. Labs with improved renal function. No other overnight events reported. Remains afebrile. Exam Narrative Exam Narrative: General: Patient appears comfortable, AAOX3, NAD. NGT in place. Initially OOB in chair, back in bed at time of exam. Skin: Right sided TLC Central Line noted. Neck: Supple CV: Regular, nontachycardic, S1S2, No overt rubs, murmurs, or gallops. Pulmonary: Clear to auscultation bilaterally, no crackles, wheezing, or rhonchi on limited anterior and lateral exam Abdomen: Bowel Sounds diminished, abdomen is distended but appears soft. LLQ Ostomy noted. Vascular: No lower extremity edema Psych: Normal mood and affect. Objective Objective Clinical Data: Abnormal lab results 07/21/18 07/21/18 07/21/18 Range/Units 06:55 06:55 09:12 WBC 12.95 H (4.4-10.8) k/cumm RBC 3.89 L (4.50-6.00) m/cumm Hgb 12.1 L (13.5-17.5) g/dL Hct 36.3 L (40.0-50.0) % MPV 11.1 H (8.0-11.0) fL Absolute Neutrophils 10.01 H (1.2-6.7) k/cumm Absolute Lymphocytes 1.19 L (1.2-3.4) k/cumm Absolute Monocytes 1.15 H (0.11-0.7) k/cumm Creatinine 1.62 H (0.70-1.30) mg/dL Glucose 171 H (70-100) mg/dL Lactate 1.9 H (0.6-1.4) mmol/l Calcium 8.4 L (8.5-10.1) mg/dL Magnesium 1.5 L (1.8-2.4) mg/dL Vital Signs Temperature 36.7 C 07/21/18 08:20 Temperature Source Temporal Artery Scan 07/21/18 08:20 Pulse 53 L 07/21/18 14:01 Pulse Rhythm Regular 07/19/18 08:23 Pulse 56 L 07/21/18 14:01 Respiratory Rate 15 07/21/18 14:01 Respiratory Effort 07/21/18 04:00 Respiratory Depth Normal 07/21/18 04:00 Respiratory Pattern Normal 07/21/18 04:00 Blood Pressure 120/72 07/21/18 14:01 Blood Pressure Mean 80 07/21/18 14:01 Blood Pressure Position Supine 07/21/18 04:00 Pulse Oximetry 94 L 07/21/18 14:01 Oxygen Delivery Method Room Air 07/21/18 04:00 Oxygen Flow Rate 0 07/21/18 04:00 Pain Level 0 07/21/18 04:00 Intake & Output 07/20/18 07/21/18 07/21/18 23:59 11:59 23:59 Intake Total 1246.667 / 3395.500 4219.500 / 4778.167 558.667 / 4778.167 Output Total 60 / 600 3410 / 4450 1040 / 4450 Balance 1186.667 / 2795.500 809.500 / 328.167 -481.333 / 328.167 Weight 91.5 kg Intake: IV 1216.667 / 3315.500 3429.500 / 3988.167 558.667 / 3988.167 Oral 30 / 80 790 / 790 Output: Gastric Drainage 50 / 400 Right Nare 50 / 400 Urine 3375 / 4375 1000 / 4375 Stool 35 / 75 40 / 75 Other: Urine Color Pale Pale Yellow Yellow Urine Appearance Clear Clear Comment brooke to gravity with light colored ericka urine in it Indwelling brooke with ericka urine QS. Gastric Occult Blood Right Nare Positive Voiding Methods Toilet Laboratory Results WBC 12.95 k/cumm (4.4-10.8) H 07/21/18 06:55 RBC 3.89 m/cumm (4.50-6.00) L 07/21/18 06:55 Hgb 12.1 g/dL (13.5-17.5) L 07/21/18 06:55 Hct 36.3 % (40.0-50.0) L 07/21/18 06:55 MCV 93.3 fL (80-95) 07/21/18 06:55 MCH 31.1 pg (27.0-33.0) 07/21/18 06:55 MCHC 33.3 g/dL (32.0-36.0) 07/21/18 06:55 RDW 12.2 % (11.8-14.1) 07/21/18 06:55 Plt Count 186 x1000/uL (130-400) 07/21/18 06:55 MPV 11.1 fL (8.0-11.0) H 07/21/18 06:55 Immature Gran % 0.3 07/21/18 06:55 Neutrophils % 77.3 07/21/18 06:55 Lymphocytes % 9.2 07/21/18 06:55 Monocytes % 8.9 07/21/18 06:55 Eosinophils % 4.1 07/21/18 06:55 Basophils % 0.2 07/21/18 06:55 Absolute Neutrophils 10.01 k/cumm (1.2-6.7) H 07/21/18 06:55 Absolute Lymphocytes 1.19 k/cumm (1.2-3.4) L 07/21/18 06:55 Absolute Monocytes 1.15 k/cumm (0.11-0.7) H 07/21/18 06:55 Absolute Eosinophils 0.53 k/cumm (0.0-0.7) 07/21/18 06:55 Absolute Basophils 0.03 k/cumm (0.0-0.2) 07/21/18 06:55 Differential Comment Manual differential 07/18/18 07:10 RBC Morphology Normal 07/18/18 07:10 Sodium 140 mmol/L (136-145) 07/21/18 06:55 Potassium 3.5 mmol/L (3.5-5.1) 07/21/18 06:55 Chloride 106 mmol/L (98-107) 07/21/18 06:55 Carbon Dioxide 26.5 mmol/L (21.0-32.0) 07/21/18 06:55 Anion Gap 7.5 mmol/L (3-11) 07/21/18 06:55 BUN 18 mg/dL (7-18) 07/21/18 06:55 Creatinine 1.62 mg/dL (0.70-1.30) H 07/21/18 06:55 Estimated GFR/1.73 m2 41.10 (mL/min/1.73m2) 07/21/18 06:55 Glucose 171 mg/dL (70-100) H 07/21/18 06:55 Lactate 1.9 mmol/l (0.6-1.4) H 07/21/18 09:12 Calcium 8.4 mg/dL (8.5-10.1) L 07/21/18 06:55 Magnesium 1.5 mg/dL (1.8-2.4) L 07/21/18 06:55 Total Bilirubin 0.6 mg/dL (0.2-1.0) 07/18/18 07:10 AST 19 U/L (15-37) 07/18/18 07:10 ALT 26 U/L (12-78) 07/18/18 07:10 Alkaline Phosphatase 125 U/L (46-116) H 07/18/18 07:10 Total Protein 6.8 g/dL (6.4-8.2) 07/18/18 07:10 Albumin 3.3 g/dL (3.4-5.0) L 07/18/18 07:10 Lipase 135 U/L (73-393) 07/18/18 07:10 Patient ABO/Rh O Positive 07/19/18 11:40 Antibody Screen Negative 07/19/18 11:40
--- NOTE | 2018-07-21 16:55 | PDOC.CMPRO ---
- If Service Date Differs Date of service: 07/21/18 Time of Service: 16:55 Care Management Progress Note S/O: Ovidio is resting when CM enters the room. He continues on IV antibiotics he is tolerating clear liquids. Arterial line has been discontinued. No other changes in status today. Ostomy teaching started here at [facility] and anticipate will continue through [facility]. A: Ovidio is a 82 year old Left hemicolectomy: POD#1 s/p sigmoid colon resection and end colostomy. P: Ovidio will be discharged home when medically ready per provider. Anticipate new services through home health nursing. Significant other will transport home at time of discharge.
--- NOTE | 2018-07-21 17:02 | CMPROGNOTE_ITS ---
- If Service Date Differs Date of service: 07/21/18 Time of Service: 16:55 Care Management Progress Note S/O: Ovidio is resting when CM enters the room. He continues on IV antibiotics he is tolerating clear liquids. Arterial line has been discontinued. No other changes in status today. Ostomy teaching started here at [facility] and anticipate will continue through [facility]. A: Ovidio is a 82 year old Left hemicolectomy: POD#1 s/p sigmoid colon resection and end colostomy. P: Ovidio will be discharged home when medically ready per provider. Anticipate new services through home health nursing. Significant other will transport home at time of discharge.
[2018-07-21] MEDS: Atorvastatin 40 MG TAB PO (20:41)
[2018-07-21] MEDS: Normal Saline Flush 10 ML SYR IVP (20:41)
[2018-07-21] MEDS: Pantoprazole 40 MG VIAL IVP (20:41)
[2018-07-22] VITALS (41 sets, daily range): BP systolic 98–168; BP diastolic 57–120; PULSE 50–124; RESP 8–26; TEMP 36.3–36.8; O2SAT 92–96
[2018-07-22] MEDS: Insulin Aspart 300 UNITS/3 ML PEN SC ×3 (05:55→17:08)
[2018-07-22] MEDS: Normal Saline Flush 10 ML SYR IVP ×3 (06:20→21:04)
[2018-07-22 06:44] LABS: Abs Immature Grans 0.05 k/cumm (0.0-0.09); Absolute Basophil Count 0.02 k/cumm (0.0-0.2); Absolute Eosinophil Count 0.78 k/cumm (0.0-0.7); Absolute Lymphocyte Count 1.29 k/cumm (1.2-3.4); Absolute Monocyte Count 0.87 k/cumm (0.11-0.7); Basophils % 0.2; Eosinophils % 6.9; HCT 37.4 % (40.0-50.0); HGB 12.3 g/dL (13.5-17.5); Immature Grans % 0.4; Lymphocytes % 11.4; Mean Corp. HGB Concentration 32.9 g/dL (32.0-36.0); Mean Corpuscular Hemoglobin 30.5 pg (27.0-33.0); Mean Corpuscular Volume 92.8 fL (80-95); Mean Platelet Volume 10.2 fL (8.0-11.0); Monocytes % 7.7; Neutrophils % 73.4; Platelet Count 196 x1000/uL (130-400); RBC 4.03 m/cumm (4.50-6.00); White Blood Cell Count 11.31 k/cumm (4.4-10.8)
[2018-07-22 06:56] LABS: Anion Gap 7.2 mmol/L (3-11); BUN 14 mg/dL (7-18); CO2 26.8 mmol/L (21.0-32.0); CREATININE 1.55 mg/dL (0.70-1.30); Calcium 8.3 mg/dL (8.5-10.1); Chloride 105 mmol/L (98-107); Estimated GFR 43.25 (mL/min/1.73m2); Glucose 192 mg/dL (70-100); Magnesium 1.8 mg/dL (1.8-2.4); Potassium 3.6 mmol/L (3.5-5.1); Sodium 139 mmol/L (136-145)
--- NOTE | 2018-07-22 08:09 | PDOC.CMPRO ---
- If Service Date Differs Date of service: 07/22/18 Time of Service: 08:10 Care Management Progress Note S/O: Ovidio is doing well per his report. He is tolerating oral intake, he states he is passing gas. He states he wants to ambulate and is looking forward to be transition to the medical surgical unit. He is requesting contact patient assistance and request Cathie meet him to reinstates his financial assistance. ELVIN sent an email over to patient accounts and requested she follow up with the patient and his SO. Ovidio would like [facility] for dressing changes and ostomy teaching. He will need a face to face for new home health services. Ovidio smiles frequently during the encounter with and states he is appreciative of the care he has received. Ovidio remains on IV antibiotics at this time. A:82 year old male admitted with diverticuliti abscess S/P Left hemicolectomy, sigmoid colon resection and end colostomy. P:Ovidio remains in the ICU. Anticipate he will transition to the medical surgical floor. Ovidio will be discharged home wean medically ready with new home health nursing and wound management. ELVIN faxed a notification to [facility]. ELVIN to continue to provide support to patient discharge planning and disposition.
--- NOTE | 2018-07-22 08:13 | CMPROGNOTE_ITS ---
- If Service Date Differs Date of service: 07/22/18 Time of Service: 08:10 Care Management Progress Note S/O: Ovidio is doing well per his report. He is tolerating oral intake, he states he is passing gas. He states he wants to ambulate and is looking forward to be transition to the medical surgical unit. He is requesting contact patient assistance and request Cathie meet him to reinstates his financial assistance. ELVIN sent an email over to patient accounts and requested she follow up with the patient and his SO. Ovidio would like [facility] for dressing changes and ostomy teaching. He will need a face to face for new home health services. Ovidio smiles frequently during the encounter with and states he is appreciative of the care he has received. Ovidio remains on IV antibiotics at this time. A:82 year old male admitted with diverticuliti abscess S/P Left hemicolectomy, sigmoid colon resection and end colostomy. P:Ovidio remains in the ICU. Anticipate he will transition to the medical surgical floor. Ovidio will be discharged home wean medically ready with new home health nursing and wound management. ELVIN faxed a notification to [facility]. ELVIN to continue to provide support to patient discharge planning and disposition.
[2018-07-22] MEDS: amLODIPine 10 MG TAB PO (09:29)
[2018-07-22] MEDS: Magnesium Oxide 400 MG TAB PO (09:29)
[2018-07-22] MEDS: Terazosin 2 MG CAP PO (09:29)
[2018-07-22] MEDS: Aspirin 81 MG CHEW PO (09:29)
[2018-07-22] MEDS: Furosemide 20 MG/2 ML VIAL IVP (09:30)
[2018-07-22] MEDS: Potassium Chloride Liquid 20 MEQ PKT 40 MEQ PO (09:30)
[2018-07-22] MEDS: MetroNIDAZOLE 500 MG/100 ML BAG 100 MG IVPB ×2 (09:30→15:40)
--- NOTE | 2018-07-22 10:11 | W.PM.PROGNOT ---
Date of Service Date of service: 07/22/18 Time of Service: 10:11 Assessment and Plan (1) S/P left hemicolectomy: Current visit: Yes Status: Acute POD #3 Started clear liquid diet, tolerating well at this point. Ambulating with [facility] staff. Ostomy is working well. Pain is currently well controlled. (2) DVT prophylaxis: Current visit: Yes Status: Acute (3) CAD (coronary artery disease): Current visit: Yes Status: Chronic Qualifiers: Coronary Disease-Associated Artery/Lesion type: [place] artery [place] vs. transplanted heart: [place] heart Associated angina: without angina Qualified Code(s): I25.10 - Atherosclerotic heart disease of [place] coronary artery without angina pectoris (4) Renal insufficiency: Current visit: Yes Status: Chronic (5) Hypertension: Current visit: Yes Status: Chronic Qualifiers: Hypertension type: unspecified Qualified Code(s): I10 - Essential (primary) hypertension (6) Diabetes: Current visit: Yes Status: Chronic Qualifiers: Diabetes mellitus type: type 2 Diabetes mellitus penitentiary insulin use: without terminal operations manager use Diabetes mellitus complication status: with kidney complications Diabetes mellitus complication detail: with chronic kidney disease Diabetic retinopathy severity: Proliferative retinopathy type: Diabetes mellitus macular edema: Laterality: Chronic kidney disease stage: stage 2 (mild) Qualified Code(s): E11.22 - Type 2 diabetes mellitus with diabetic chronic kidney disease; 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 I feel much better after I was able to wash my face. Arrived with Mr. Thompson sitting in the chair. Denies abdominal pain, nausea or vomiting. Reports that he has been ambulating during the day. Reports that he has been tolerating clear liquids so far this morning. Exam Const General: cooperative and comfortable Orientation: alert and oriented x3 GI Inspection: normal to inspection and incision (Midline, dressing in place. ) Palpation: soft, no guarding and nontender Auscultation: normal bowel sounds Objective Objective Clinical Data: Abnormal lab results 07/22/18 07/22/18 Range/Units 06:25 06:25 WBC 11.31 H (4.4-10.8) k/cumm RBC 4.03 L (4.50-6.00) m/cumm Hgb 12.3 L (13.5-17.5) g/dL Hct 37.4 L (40.0-50.0) % Absolute Neutrophils 8.30 H (1.2-6.7) k/cumm Absolute Monocytes 0.87 H (0.11-0.7) k/cumm Absolute Eosinophils 0.78 H (0.0-0.7) k/cumm Creatinine 1.55 H (0.70-1.30) mg/dL Glucose 192 H (70-100) mg/dL Calcium 8.3 L (8.5-10.1) mg/dL Vital Signs Temperature 36.5 C 07/22/18 07:40 Temperature Source Temporal Artery Scan 07/22/18 07:40 Pulse 64 07/22/18 06:01 Pulse Rhythm Regular 07/19/18 08:23 Pulse 69 07/22/18 06:01 Respiratory Rate 18 07/22/18 06:01 Respiratory Effort Non-Labored 07/22/18 04:00 Respiratory Depth Normal 07/22/18 04:00 Respiratory Pattern Normal 07/22/18 04:00 Blood Pressure 168/77 H 07/22/18 06:01 Blood Pressure Mean 99 07/22/18 06:01 Blood Pressure Position Supine 07/22/18 04:00 Pulse Oximetry 94 L 07/22/18 06:01 Oxygen Delivery Method Room Air 07/22/18 04:00 Oxygen Flow Rate 0 07/22/18 04:00 Pain Level 0 07/22/18 04:00 Intake & Output 07/21/18 07/22/18 07/22/18 18:59 06:59 18:59 Intake Total 4313.167 / 4413.167 100 / 4413.167 Output Total 3480 / 5080 1600 / 5080 Balance 833.167 / -666.833 -1500 / -666.833 Intake: IV 2198.167 / 2298.167 100 / 2298.167 Oral 2115 / 2115 Output: Urine 3405 / 4830 1425 / 4830 Stool 75 / 250 175 / 250 Other: Urine Color Yellow Yellow Pale Yellow Dark Carmela Urine Appearance Clear Clear Clear Comment Pang intact and draining clear yellow urine. Pang intact and draining clear yellow urine. Laboratory Results WBC 11.31 k/cumm (4.4-10.8) H 07/22/18 06:25 RBC 4.03 m/cumm (4.50-6.00) L 07/22/18 06:25 Hgb 12.3 g/dL (13.5-17.5) L 07/22/18 06:25 Hct 37.4 % (40.0-50.0) L 07/22/18 06:25 MCV 92.8 fL (80-95) 07/22/18 06:25 MCH 30.5 pg (27.0-33.0) 07/22/18 06:25 MCHC 32.9 g/dL (32.0-36.0) 07/22/18 06:25 RDW 12.0 % (11.8-14.1) 07/22/18 06:25 Plt Count 196 x1000/uL (130-400) 07/22/18 06:25 MPV 10.2 fL (8.0-11.0) 07/22/18 06:25 Immature Gran % 0.4 07/22/18 06:25 Neutrophils % 73.4 07/22/18 06:25 Lymphocytes % 11.4 07/22/18 06:25 Monocytes % 7.7 07/22/18 06:25 Eosinophils % 6.9 07/22/18 06:25 Basophils % 0.2 07/22/18 06:25 Absolute Neutrophils 8.30 k/cumm (1.2-6.7) H 07/22/18 06:25 Absolute Lymphocytes 1.29 k/cumm (1.2-3.4) 07/22/18 06:25 Absolute Monocytes 0.87 k/cumm (0.11-0.7) H 07/22/18 06:25 Absolute Eosinophils 0.78 k/cumm (0.0-0.7) H 07/22/18 06:25 Absolute Basophils 0.02 k/cumm (0.0-0.2) 07/22/18 06:25 Differential Comment Manual differential 07/18/18 07:10 RBC Morphology Normal 07/18/18 07:10 Sodium 139 mmol/L (136-145) 07/22/18 06:25 Potassium 3.6 mmol/L (3.5-5.1) 07/22/18 06:25 Chloride 105 mmol/L (98-107) 07/22/18 06:25 Carbon Dioxide 26.8 mmol/L (21.0-32.0) 07/22/18 06:25 Anion Gap 7.2 mmol/L (3-11) 07/22/18 06:25 BUN 14 mg/dL (7-18) 07/22/18 06:25 Creatinine 1.55 mg/dL (0.70-1.30) H 07/22/18 06:25 Estimated GFR/1.73 m2 43.25 (mL/min/1.73m2) 07/22/18 06:25 Glucose 192 mg/dL (70-100) H 07/22/18 06:25 Lactate 1.9 mmol/l (0.6-1.4) H 07/21/18 09:12 Calcium 8.3 mg/dL (8.5-10.1) L 07/22/18 06:25 Magnesium 1.8 mg/dL (1.8-2.4) 07/22/18 06:25 Total Bilirubin 0.6 mg/dL (0.2-1.0) 07/18/18 07:10 AST 19 U/L (15-37) 07/18/18 07:10 ALT 26 U/L (12-78) 07/18/18 07:10 Alkaline Phosphatase 125 U/L (46-116) H 07/18/18 07:10 Total Protein 6.8 g/dL (6.4-8.2) 07/18/18 07:10 Albumin 3.3 g/dL (3.4-5.0) L 07/18/18 07:10 Lipase 135 U/L (73-393) 07/18/18 07:10 Patient ABO/Rh O Positive 07/19/18 11:40 Antibody Screen Negative 07/19/18 11:40
[2018-07-22] MEDS: CIPROFLOXACIN 400 MG/200 ML BAG 200 MG IVPB (11:04)
--- NOTE | 2018-07-22 12:14 | W.PM.PROGNOT ---
Date of Service Date of service: 07/22/18 Time of Service: 12:15 Assessment and Plan (1) Diverticulitis of large intestine with abscess: Current visit: Yes Status: Acute Worsening status necessitating Ex-Lap on 07/19 with discovery of perforated abscess - patient is now s/p sigmoid resection and end colostomy. Also on antibiotic therapy with combination Cipro/Flagyl. Surgical specimen with moderate WBCs on Gram Stain, Pansensitive E. Coli on cultures. Appears stable and improved. Qualifiers: Diverticulitis bleeding: without bleeding Qualified Code(s): K57.20 - Diverticulitis of large intestine with perforation and abscess without bleeding (2) Hypotension: Current visit: Yes Status: Acute In setting of Acute Diverticulitis with Perforated Abscess and acute abdomen. Patient's blood pressure is vastly improved following surgical intervention, and now hypertensive. Continue to hold MYRA-I given recent YEYO. Restarted BB, CCB therapy, and given consistently elevated systolic values started low dose a-juma therapy today. Given overall volume overload also administered low dose IV Diuretic again this morning, with good results. Continue to monitor. Qualifiers: Hypotension type: unspecified hypotension type Trimester: Qualified Code(s): I95.9 - Hypotension, unspecified (3) CHF (congestive heart failure): Current visit: Yes Status: Chronic Ischemic Cardiomyopathy, with initial LVEF of 35%, now fully recovered by ECHO 09/2017. No evidence of failure, with mild volume overload currently secondary to fluid resuscitation. Additional low dose IV Furosemide today, which appeared to work well yesterday, and monitor fluid status and daily weights. MYRA-I on hold given recent YEYO. Will resume Lisinopril when able. Continue BB. (4) CAD (coronary artery disease): Current visit: Yes Status: Chronic History of CAD with [facility] 02/2017, s/p MINNIE to LAD and PCI to the 1st Diag. Patient is more than 12 months out of intervention and insertion of stent - can hold DAPT with aspirin and plavix. Resumed aspirin. Continue BB therapy as above. Also resumed statin therapy. Qualifiers: Coronary Disease-Associated Artery/Lesion type: [place] artery [place] vs. transplanted heart: [place] heart Associated angina: without angina Qualified Code(s): I25.10 - Atherosclerotic heart disease of [place] coronary artery without angina pectoris (5) Diabetes: Current visit: Yes Status: Chronic Continue to hold metformin while hospitalized. Continue sliding scale coverage. 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 Brooke in place. Qualifiers: Lower urinary tract symptom presence: unspecified whether lower urinary tract symptoms present Lower urinary tract symptom detail: Qualified Code(s): N40.0 - Benign prostatic hyperplasia without lower urinary tract symptoms (7) DVT prophylaxis: Current visit: Yes Status: Acute Continue SC Lovenox. Continue SCDs. PPI initiated for GI Prophylaxis. Subjective Interval history since last seen: 82 year old man with a prior medical history significant for CAD and ICMP, admitted to the surgical service on 07/18 from [facility] Emergency Department with a diagnosis of Diverticular Abscess. Mr. Thompson has a histor of CAD and prior NSTEMI, for which he underwent a LHC with insertion of a MINNIE to the LAD and PCI/Angioplasty of the 1st diag in February of 2018. He had a resultant ICMP with LVEF 35%, fully recovered by repeat ECHO in January of 2018 that also no evidence of wall motion abnormalities. Other medical history includes AAA s/p Endograft repair, DM, HTN, Dyslipidemia, and a prior history of Tobacco use. The patient presented to the ED with complaint of worsening abdominal pain for one week. Imaging showed evidence of a Diverticular Abscess. He was admitted by Dr. Renae and initiated on antibiotic therapy. Further review of imaging by IR at [facility] deemed it appropriate for drainage, with plans for transfer for IR Procedure on the following Friday morning. Mr. Thompson was also noted to be hypertensive initially at time of admission. However, on the morning of 07/19 he was noted to have a change in his status, with worsening symptoms, hypotension, and an acute abdomen by exam. Transfer to [facility] was not possible due to lack of bed availability, and the patient was taken to the OR for an Exploratory Laparotomy - found to have a perforated abscess and underwent a Sigmoid Resection with end Colostomy and insertion of a right sided SC TLC. Medicine service was consulted for medical co-management of patient following his surgery. This morning the patient continues to be doing well. His arterial line and NGT were discontinued, with brooke catheter still in place. He is tolerating a liquid diet. He had continued to be hypertensive but resolved with addition of alpha blockers to regimen this morning. Labs with improved renal function. No other overnight events reported. Remains afebrile. Exam Narrative Exam Narrative: General: Patient appears comfortable, AAOX3, NAD. OOB in chair. Skin: Right sided TLC Central Line still in place. Neck: Supple CV: Regular, nontachycardic, S1S2, No overt rubs, murmurs, or gallops. Pulmonary: Clear to auscultation bilaterally, no crackles, wheezing, or rhonchi on limited anterior and lateral exam Abdomen: Bowel Sounds diminished, abdomen is distended but appears soft. LLQ Ostomy noted. Vascular: Mild b/l LE edema Psych: Normal mood and affect. Objective Objective Clinical Data: Abnormal lab results 07/22/18 07/22/18 Range/Units 06:25 06:25 WBC 11.31 H (4.4-10.8) k/cumm RBC 4.03 L (4.50-6.00) m/cumm Hgb 12.3 L (13.5-17.5) g/dL Hct 37.4 L (40.0-50.0) % Absolute Neutrophils 8.30 H (1.2-6.7) k/cumm Absolute Monocytes 0.87 H (0.11-0.7) k/cumm Absolute Eosinophils 0.78 H (0.0-0.7) k/cumm Creatinine 1.55 H (0.70-1.30) mg/dL Glucose 192 H (70-100) mg/dL Calcium 8.3 L (8.5-10.1) mg/dL Vital Signs Temperature 36.5 C 07/22/18 07:40 Temperature Source Temporal Artery Scan 07/22/18 07:40 Pulse 110 H 07/22/18 10:55 Pulse Rhythm Regular 07/19/18 08:23 Pulse 102 H 07/22/18 11:00 Respiratory Rate 19 07/22/18 11:00 Respiratory Effort Non-Labored 07/22/18 07:40 Respiratory Depth Normal 07/22/18 07:40 Respiratory Pattern Normal 07/22/18 07:40 Blood Pressure 113/57 L 07/22/18 10:55 Blood Pressure Mean 71 07/22/18 10:55 Blood Pressure Position Supine 07/22/18 04:00 Pulse Oximetry 94 L 07/22/18 08:01 Oxygen Delivery Method Room Air 07/22/18 04:00 Oxygen Flow Rate 0 07/22/18 04:00 Pain Level 0 07/22/18 07:40 Intake & Output 07/21/18 07/22/18 07/22/18 23:59 11:59 23:59 Intake Total 2533.667 / 6953.167 348 / 348 Output Total 1620 / 5030 1600 / 1600 Balance 913.667 / 1923.167 -1252 / -1252 Intake: IV 1158.667 / 4788.167 130 / 130 Oral 1375 / 2165 218 / 218 Output: Urine 1580 / 4955 1425 / 1425 Stool 40 / 75 175 / 175 Other: Urine Color Yellow Pale Yellow Dark Carmela Urine Appearance Clear Clear Comment Brooke intact and draining clear yellow urine. Brooke in place Laboratory Results WBC 11.31 k/cumm (4.4-10.8) H 07/22/18 06:25 RBC 4.03 m/cumm (4.50-6.00) L 07/22/18 06:25 Hgb 12.3 g/dL (13.5-17.5) L 07/22/18 06:25 Hct 37.4 % (40.0-50.0) L 07/22/18 06:25 MCV 92.8 fL (80-95) 07/22/18 06:25 MCH 30.5 pg (27.0-33.0) 07/22/18 06:25 MCHC 32.9 g/dL (32.0-36.0) 07/22/18 06:25 RDW 12.0 % (11.8-14.1) 07/22/18 06:25 Plt Count 196 x1000/uL (130-400) 07/22/18 06:25 MPV 10.2 fL (8.0-11.0) 07/22/18 06:25 Immature Gran % 0.4 07/22/18 06:25 Neutrophils % 73.4 07/22/18 06:25 Lymphocytes % 11.4 07/22/18 06:25 Monocytes % 7.7 07/22/18 06:25 Eosinophils % 6.9 07/22/18 06:25 Basophils % 0.2 07/22/18 06:25 Absolute Neutrophils 8.30 k/cumm (1.2-6.7) H 07/22/18 06:25 Absolute Lymphocytes 1.29 k/cumm (1.2-3.4) 07/22/18 06:25 Absolute Monocytes 0.87 k/cumm (0.11-0.7) H 07/22/18 06:25 Absolute Eosinophils 0.78 k/cumm (0.0-0.7) H 07/22/18 06:25 Absolute Basophils 0.02 k/cumm (0.0-0.2) 07/22/18 06:25 Differential Comment Manual differential 07/18/18 07:10 RBC Morphology Normal 07/18/18 07:10 Sodium 139 mmol/L (136-145) 07/22/18 06:25 Potassium 3.6 mmol/L (3.5-5.1) 07/22/18 06:25 Chloride 105 mmol/L (98-107) 07/22/18 06:25 Carbon Dioxide 26.8 mmol/L (21.0-32.0) 07/22/18 06:25 Anion Gap 7.2 mmol/L (3-11) 07/22/18 06:25 BUN 14 mg/dL (7-18) 07/22/18 06:25 Creatinine 1.55 mg/dL (0.70-1.30) H 07/22/18 06:25 Estimated GFR/1.73 m2 43.25 (mL/min/1.73m2) 07/22/18 06:25 Glucose 192 mg/dL (70-100) H 07/22/18 06:25 Lactate 1.9 mmol/l (0.6-1.4) H 07/21/18 09:12 Calcium 8.3 mg/dL (8.5-10.1) L 07/22/18 06:25 Magnesium 1.8 mg/dL (1.8-2.4) 07/22/18 06:25 Total Bilirubin 0.6 mg/dL (0.2-1.0) 07/18/18 07:10 AST 19 U/L (15-37) 07/18/18 07:10 ALT 26 U/L (12-78) 07/18/18 07:10 Alkaline Phosphatase 125 U/L (46-116) H 07/18/18 07:10 Total Protein 6.8 g/dL (6.4-8.2) 07/18/18 07:10 Albumin 3.3 g/dL (3.4-5.0) L 07/18/18 07:10 Lipase 135 U/L (73-393) 07/18/18 07:10 Patient ABO/Rh O Positive 07/19/18 11:40 Antibody Screen Negative 07/19/18 11:40
--- NOTE | 2018-07-22 12:17 | PGE_ITS ---
Date of Service Date of service: 07/22/18 Time of Service: 12:15 Assessment and Plan (1) Diverticulitis of large intestine with abscess: Current visit: Yes Status: Acute Worsening status necessitating Ex-Lap on 07/19 with discovery of perforated abscess - patient is now s/p sigmoid resection and end colostomy. Also on antibiotic therapy with combination Cipro/Flagyl. Surgical specimen with moderate WBCs on Gram Stain, Pansensitive E. Coli on cultures. Appears stable and improved. Qualifiers: Diverticulitis bleeding: without bleeding Qualified Code(s): K57.20 - Diverticulitis of large intestine with perforation and abscess without bleeding (2) Hypotension: Current visit: Yes Status: Acute In setting of Acute Diverticulitis with Perforated Abscess and acute abdomen. Patient's blood pressure is vastly improved following surgical intervention, and now hypertensive. Continue to hold MYRA-I given recent YEYO. Restarted BB, CCB therapy, and given consistently elevated systolic values started low dose a-juma therapy today. Given overall volume overload also administered low dose IV Diuretic again this morning, with good results. Continue to monitor. Qualifiers: Hypotension type: unspecified hypotension type Trimester: Qualified Code(s): I95.9 - Hypotension, unspecified (3) CHF (congestive heart failure): Current visit: Yes Status: Chronic Ischemic Cardiomyopathy, with initial LVEF of 35%, now fully recovered by ECHO 09/2017. No evidence of failure, with mild volume overload currently secondary to fluid resuscitation. Additional low dose IV Furosemide today, which appeared to work well yesterday, and monitor fluid status and daily weights. MYRA-I on hold given recent YYEO. Will resume Lisinopril when able. Continue BB. (4) CAD (coronary artery disease): Current visit: Yes Status: Chronic History of CAD with [facility] 02/2017, s/p MINNIE to LAD and PCI to the 1st Diag. Patient is more than 12 months out of intervention and insertion of stent - can hold DAPT with aspirin and plavix. Resumed aspirin. Continue BB therapy as above. Also resumed statin therapy. Qualifiers: Coronary Disease-Associated Artery/Lesion type: [place] artery [place] vs. transplanted heart: [place] heart Associated angina: without angina Qualified Code(s): I25.10 - Atherosclerotic heart disease of [place] coronary artery without angina pectoris (5) Diabetes: Current visit: Yes Status: Chronic Continue to hold metformin while hospitalized. Continue sliding scale [place]. 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 Brooke in place. Qualifiers: Lower urinary tract symptom presence: unspecified whether lower urinary tract symptoms present Lower urinary tract symptom detail: Qualified Code(s): N40.0 - Benign prostatic hyperplasia without lower urinary tract symptoms (7) DVT prophylaxis: Current visit: Yes Status: Acute Continue SC Lovenox. Continue SCDs. PPI initiated for GI Prophylaxis. Subjective Interval history since last seen: 82 year old man with a prior medical history significant for CAD and ICMP, admitted to the surgical service on 07/18 from [facility] Emergency Department with a diagnosis of Diverticular Abscess. Mr. Thompson has a histor of CAD and prior NSTEMI, for which he underwent a LHC with insertion of a MINNIE to the LAD and PCI/Angioplasty of the 1st diag in February of 2018. He had a resultant ICMP with LVEF 35%, fully recovered by repeat ECHO in January of 2018 that also no evidence of wall motion abnormalities. Other medical history includes AAA s/p Endograft repair, DM, HTN, Dyslipidemia, and a prior history of Tobacco use. The patient presented to the ED with complaint of worsening abdominal pain for one week. Imaging showed evidence of a Diverticular Abscess. He was admitted by Dr. Renae and initiated on antibiotic therapy. Further review of imaging by IR at [facility] deemed it appropriate for drainage, with plans for transfer for IR Procedure on the following Friday morning. Mr. Thompson was also noted to be hypertensive initially at time of admission. However, on the morning of 07/19 he was noted to have a change in his status, with worsening symptoms, hypotension, and an acute abdomen by exam. Transfer to [facility] was not possible due to lack of bed availability, and the patient was taken to the OR for an Exploratory Laparotomy - found to have a perforated abscess and underwent a Sigmoid Resection with end Colostomy and insertion of a right sided SC TLC. Medicine service was consulted for medical co-management of patient following his surgery. This morning the patient continues to be doing well. His arterial line and NGT were discontinued, with brooke catheter still in place. He is tolerating a liquid diet. He had continued to be hypertensive but resolved with addition of alpha blockers to regimen this morning. Labs with improved renal function. No other overnight events reported. Remains afebrile. Exam Narrative Exam Narrative: General: Patient appears comfortable, AAOX3, NAD. OOB in chair. Skin: Right sided TLC Central Line still in place. Neck: Supple CV: Regular, nontachycardic, S1S2, No overt rubs, murmurs, or gallops. Pulmonary: Clear to auscultation bilaterally, no crackles, wheezing, or rhonchi on limited anterior and lateral exam Abdomen: Bowel Sounds diminished, abdomen is distended but appears soft. LLQ Ostomy noted. Vascular: Mild b/l LE edema Psych: Normal mood and affect. Objective Objective Clinical Data: Abnormal lab results 07/22/18 07/22/18 Range/Units 06:25 06:25 WBC 11.31 H (4.4-10.8) k/cumm RBC 4.03 L (4.50-6.00) m/cumm Hgb 12.3 L (13.5-17.5) g/dL Hct 37.4 L (40.0-50.0) % Absolute Neutrophils 8.30 H (1.2-6.7) k/cumm Absolute Monocytes 0.87 H (0.11-0.7) k/cumm Absolute Eosinophils 0.78 H (0.0-0.7) k/cumm Creatinine 1.55 H (0.70-1.30) mg/dL Glucose 192 H (70-100) mg/dL Calcium 8.3 L (8.5-10.1) mg/dL Vital Signs Temperature 36.5 C 07/22/18 07:40 Temperature Source Temporal Artery Scan 07/22/18 07:40 Pulse 110 H 07/22/18 10:55 Pulse Rhythm Regular 07/19/18 08:23 Pulse 102 H 07/22/18 11:00 Respiratory Rate 19 07/22/18 11:00 Respiratory Effort Non-Labored 07/22/18 07:40 Respiratory Depth Normal 07/22/18 07:40 Respiratory Pattern Normal 07/22/18 07:40 Blood Pressure 113/57 L 07/22/18 10:55 Blood Pressure Mean 71 07/22/18 10:55 Blood Pressure Position Supine 07/22/18 04:00 Pulse Oximetry 94 L 07/22/18 08:01 Oxygen Delivery Method Room Air 07/22/18 04:00 Oxygen Flow Rate 0 07/22/18 04:00 Pain Level 0 07/22/18 07:40 Intake & Output 07/21/18 07/22/18 07/22/18 23:59 11:59 23:59 Intake Total 2533.667 / 6953.167 348 / 348 Output Total 1620 / 5030 1600 / 1600 Balance 913.667 / 1923.167 -1252 / -1252 Intake: IV 1158.667 / 4788.167 130 / 130 Oral 1375 / 2165 218 / 218 Output: Urine 1580 / 4955 1425 / 1425 Stool 40 / 75 175 / 175 Other: Urine Color Yellow Pale Yellow Dark Carmela Urine Appearance Clear Clear Comment Brooke intact and draining clear yellow urine. Brooke in place Laboratory Results WBC 11.31 k/cumm (4.4-10.8) H 07/22/18 06:25 RBC 4.03 m/cumm (4.50-6.00) L 07/22/18 06:25 Hgb 12.3 g/dL (13.5-17.5) L 07/22/18 06:25 Hct 37.4 % (40.0-50.0) L 07/22/18 06:25 MCV 92.8 fL (80-95) 07/22/18 06:25 MCH 30.5 pg (27.0-33.0) 07/22/18 06:25 MCHC 32.9 g/dL (32.0-36.0) 07/22/18 06:25 RDW 12.0 % (11.8-14.1) 07/22/18 06:25 Plt Count 196 x1000/uL (130-400) 07/22/18 06:25 MPV 10.2 fL (8.0-11.0) 07/22/18 06:25 Immature Gran % 0.4 07/22/18 06:25 Neutrophils % 73.4 07/22/18 06:25 Lymphocytes % 11.4 07/22/18 06:25 Monocytes % 7.7 07/22/18 06:25 Eosinophils % 6.9 07/22/18 06:25 Basophils % 0.2 07/22/18 06:25 Absolute Neutrophils 8.30 k/cumm (1.2-6.7) H 07/22/18 06:25 Absolute Lymphocytes 1.29 k/cumm (1.2-3.4) 07/22/18 06:25 Absolute Monocytes 0.87 k/cumm (0.11-0.7) H 07/22/18 06:25 Absolute Eosinophils 0.78 k/cumm (0.0-0.7) H 07/22/18 06:25 Absolute Basophils 0.02 k/cumm (0.0-0.2) 07/22/18 06:25 Differential Comment Manual differential 07/18/18 07:10 RBC Morphology Normal 07/18/18 07:10 Sodium 139 mmol/L (136-145) 07/22/18 06:25 Potassium 3.6 mmol/L (3.5-5.1) 07/22/18 06:25 Chloride 105 mmol/L (98-107) 07/22/18 06:25 Carbon Dioxide 26.8 mmol/L (21.0-32.0) 07/22/18 06:25 Anion Gap 7.2 mmol/L (3-11) 07/22/18 06:25 BUN 14 mg/dL (7-18) 07/22/18 06:25 Creatinine 1.55 mg/dL (0.70-1.30) H 07/22/18 06:25 Estimated GFR/1.73 m2 43.25 (mL/min/1.73m2) 07/22/18 06:25 Glucose 192 mg/dL (70-100) H 07/22/18 06:25 Lactate 1.9 mmol/l (0.6-1.4) H 07/21/18 09:12 Calcium 8.3 mg/dL (8.5-10.1) L 07/22/18 06:25 Magnesium 1.8 mg/dL (1.8-2.4) 07/22/18 06:25 Total Bilirubin 0.6 mg/dL (0.2-1.0) 07/18/18 07:10 AST 19 U/L (15-37) 07/18/18 07:10 ALT 26 U/L (12-78) 07/18/18 07:10 Alkaline Phosphatase 125 U/L (46-116) H 07/18/18 07:10 Total Protein 6.8 g/dL (6.4-8.2) 07/18/18 07:10 Albumin 3.3 g/dL (3.4-5.0) L 07/18/18 07:10 Lipase 135 U/L (73-393) 07/18/18 07:10 Patient ABO/Rh O Positive 07/19/18 11:40 Antibody Screen Negative 07/19/18 11:40
--- NOTE | 2018-07-22 12:22 | W.PM.PROGNOT ---
Date of Service Date of service: 07/22/18 Time of Service: 12:22 Assessment and Plan (1) S/P left hemicolectomy: Current visit: Yes Status: Acute A\\ POD #3 s/p sigmoid colectomy and ostomy. Doing well P\\ Diet: Advanced to a low residue diet IV fluids- SL Activity: up and about with nurses tid (2) DVT prophylaxis: Current visit: Yes Status: Acute Continue Aspirin and Lovenox (3) Renal insufficiency: Current visit: Yes Status: Chronic A\\ Improving (4) Diabetes: Current visit: Yes Status: Chronic Continue sliding insulin scale for now Qualifiers: Diabetes mellitus type: type 2 Diabetes mellitus residential insulin use: without manager long term care use Diabetes mellitus complication status: with kidney complications Diabetes mellitus complication detail: with chronic kidney disease Diabetic retinopathy severity: Proliferative retinopathy type: Diabetes mellitus macular edema: Laterality: Chronic kidney disease stage: stage 2 (mild) Qualified Code(s): E11.22 - Type 2 diabetes mellitus with diabetic chronic kidney disease; 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 Guerrero is doing well. He is passing flatus and has stool coming from his ostomy. He is not nauseated. He is making good urine. He has been up and around. he wants to get out of the hospital. Exam GI Inspection: normal to inspection and other (ostomy- functioning) Palpation: soft and tender (appropriate tenderness radha the incision) Auscultation: normal bowel sounds Objective Objective Clinical Data: Abnormal lab results 07/22/18 07/22/18 Range/Units 06:25 06:25 WBC 11.31 H (4.4-10.8) k/cumm RBC 4.03 L (4.50-6.00) m/cumm Hgb 12.3 L (13.5-17.5) g/dL Hct 37.4 L (40.0-50.0) % Absolute Neutrophils 8.30 H (1.2-6.7) k/cumm Absolute Monocytes 0.87 H (0.11-0.7) k/cumm Absolute Eosinophils 0.78 H (0.0-0.7) k/cumm Creatinine 1.55 H (0.70-1.30) mg/dL Glucose 192 H (70-100) mg/dL Calcium 8.3 L (8.5-10.1) mg/dL Vital Signs Temperature 97.7 F 07/22/18 07:40 Temperature Source Temporal Artery Scan 07/22/18 07:40 Pulse 110 H 07/22/18 10:55 Pulse Rhythm Regular 07/19/18 08:23 Pulse 102 H 07/22/18 11:00 Respiratory Rate 19 07/22/18 11:00 Respiratory Effort Non-Labored 07/22/18 07:40 Respiratory Depth Normal 07/22/18 07:40 Respiratory Pattern Normal 07/22/18 07:40 Blood Pressure 113/57 L 07/22/18 10:55 Blood Pressure Mean 71 07/22/18 10:55 Blood Pressure Position Supine 07/22/18 04:00 Pulse Oximetry 94 L 07/22/18 08:01 Oxygen Delivery Method Room Air 07/22/18 04:00 Oxygen Flow Rate 0 07/22/18 04:00 Pain Level 0 07/22/18 07:40 Intake & Output 07/21/18 07/22/18 07/22/18 23:59 11:59 23:59 Intake Total 2533.667 / 6953.167 348 / 348 Output Total 1620 / 5030 1600 / 1600 Balance 913.667 / 1923.167 -1252 / -1252 Intake: IV 1158.667 / 4788.167 130 / 130 Oral 1375 / 2165 218 / 218 Output: Urine 1580 / 4955 1425 / 1425 Stool 40 / 75 175 / 175 Other: Urine Color Yellow Pale Yellow Dark Carmela Urine Appearance Clear Clear Comment Pang intact and draining clear yellow urine. Pang in place Laboratory Results WBC 11.31 k/cumm (4.4-10.8) H 07/22/18 06:25 RBC 4.03 m/cumm (4.50-6.00) L 07/22/18 06:25 Hgb 12.3 g/dL (13.5-17.5) L 07/22/18 06:25 Hct 37.4 % (40.0-50.0) L 07/22/18 06:25 MCV 92.8 fL (80-95) 07/22/18 06:25 MCH 30.5 pg (27.0-33.0) 07/22/18 06:25 MCHC 32.9 g/dL (32.0-36.0) 07/22/18 06:25 RDW 12.0 % (11.8-14.1) 07/22/18 06:25 Plt Count 196 x1000/uL (130-400) 07/22/18 06:25 MPV 10.2 fL (8.0-11.0) 07/22/18 06:25 Immature Gran % 0.4 07/22/18 06:25 Neutrophils % 73.4 07/22/18 06:25 Lymphocytes % 11.4 07/22/18 06:25 Monocytes % 7.7 07/22/18 06:25 Eosinophils % 6.9 07/22/18 06:25 Basophils % 0.2 07/22/18 06:25 Absolute Neutrophils 8.30 k/cumm (1.2-6.7) H 07/22/18 06:25 Absolute Lymphocytes 1.29 k/cumm (1.2-3.4) 07/22/18 06:25 Absolute Monocytes 0.87 k/cumm (0.11-0.7) H 07/22/18 06:25 Absolute Eosinophils 0.78 k/cumm (0.0-0.7) H 07/22/18 06:25 Absolute Basophils 0.02 k/cumm (0.0-0.2) 07/22/18 06:25 Differential Comment Manual differential 07/18/18 07:10 RBC Morphology Normal 07/18/18 07:10 Sodium 139 mmol/L (136-145) 07/22/18 06:25 Potassium 3.6 mmol/L (3.5-5.1) 07/22/18 06:25 Chloride 105 mmol/L (98-107) 07/22/18 06:25 Carbon Dioxide 26.8 mmol/L (21.0-32.0) 07/22/18 06:25 Anion Gap 7.2 mmol/L (3-11) 07/22/18 06:25 BUN 14 mg/dL (7-18) 07/22/18 06:25 Creatinine 1.55 mg/dL (0.70-1.30) H 07/22/18 06:25 Estimated GFR/1.73 m2 43.25 (mL/min/1.73m2) 07/22/18 06:25 Glucose 192 mg/dL (70-100) H 07/22/18 06:25 Lactate 1.9 mmol/l (0.6-1.4) H 07/21/18 09:12 Calcium 8.3 mg/dL (8.5-10.1) L 07/22/18 06:25 Magnesium 1.8 mg/dL (1.8-2.4) 07/22/18 06:25 Total Bilirubin 0.6 mg/dL (0.2-1.0) 07/18/18 07:10 AST 19 U/L (15-37) 07/18/18 07:10 ALT 26 U/L (12-78) 07/18/18 07:10 Alkaline Phosphatase 125 U/L (46-116) H 07/18/18 07:10 Total Protein 6.8 g/dL (6.4-8.2) 07/18/18 07:10 Albumin 3.3 g/dL (3.4-5.0) L 07/18/18 07:10 Lipase 135 U/L (73-393) 07/18/18 07:10 Patient ABO/Rh O Positive 07/19/18 11:40 Antibody Screen Negative 07/19/18 11:40
[2018-07-22] MEDS: Metoprolol 25 MG TAB PO (12:27)
--- NOTE | 2018-07-22 15:32 | PHARADMIT ---
Addendum entered by Jose Lynn III 07/23/18 12:18: Pharmacy Note Subjective Provider reports patient feeling better with no pain. Tolerated soft diet with no nause. Able to ambulate. Objective VS-OK SCr-1.57 K+3.9 Mag-1.6 H&H-11.6/35.6 WBC-9.98 Wgt-89.6 kg Assessment IV Cipro & Flagyl continue, micro show sensitivie E-coli Plan Receiving ostomy education, transfer to m/s floor when ready. Original Note: Admission Pharmacy Clinical Review DIVERTICULAR ABSCESS Code Status Full Code Current Weight 91.5 kg Renally Cleared and Narrow Therapeutic Index Meds CrCl~38ml/min QTc Value / Action Taken QTC 422 (02/03/2017) BP Control, Fever BP 98/74 now, was 168/77 this morning Afebrile pain zero Electrolytes reviewed in range DVT Prophylaxis Lovenox 40mg...borderline dose adjustment, see what CrCl is on 07/23/18 Opiate Usage / Scheduled Bowel Regimen Ordered MS IVP/yes Plt/SCr for Heparin / Enoxaparin Plt 196 SCr 1.55 INR for Warfarin H/H stable, WBC/Bands H/H 12.3/37.4 WBC 11.31 Antibiotic appropriateness Cipro/Flagyl IV Cultures and Sensitivities Peritoneal fluid: Scant growth E.Coli...sensitive to Cipro Surgical ABX d/c within 24 hr DM control / Insulin Dosing BG 192 (Novolog scale) Heart Failure (Check EF%) (MYRA's, B-Block, Diuretics) Terazosin, Norvasc, Metoprolol with dose adjustments today, Lasix IVP x1 Watch for restart of Lisinopril once SCr improves IV to PO Switch Cipro/Flagyl/APAP Home Meds Reviewed Home Meds Not Ordered Lisinopril, Clopidogrel, Ibuprofen, Metformin, Tamsulosin (has Terazosin instead), Comments p/o day#3 sigmoid colectomy w/Ostomy bag, heme negative Advance diet
[2018-07-22] MEDS: Enoxaparin 40 MG/0.4 ML SYR SC (15:40)
--- NOTE | 2018-07-22 19:14 | NUR.NOTE ---
MARILYN Wilcox talked to Dr. Renae regarding removing the patient's urinary catheter today. Dr. Renae approved the discontinuation of the catheter if the patient's scrotal swelling was decreased to the point where the urinal could be managed. MARILYN Wilcox assessed the scrotal edema and discussed the options with the patient. It was agreed upon to leave the catheter overnight as there is still some swelling and the patient would need full assistance to be able to use the urinal and he would get a better nights sleep with it in. The patient perfers to wait until the AM when swelling is more decreased. Nursing Note:
[2018-07-22] MEDS: Atorvastatin 40 MG TAB PO (20:27)
[2018-07-22] MEDS: Pantoprazole 40 MG VIAL IVP (20:28)
[2018-07-23] VITALS (37 sets, daily range): BP systolic 96–140; BP diastolic 58–86; PULSE 63–105; RESP 14–29; TEMP 36.6–37.2; O2SAT 89–97
[2018-07-23] MEDS: Insulin Aspart 300 UNITS/3 ML PEN SC ×4 (01:13→17:20)
[2018-07-23] MEDS: Metoprolol 25 MG TAB PO ×2 (01:17→12:21)
[2018-07-23] MEDS: CIPROFLOXACIN 400 MG/200 ML BAG 200 MG IVPB ×3 (01:18→22:12)
[2018-07-23] MEDS: MetroNIDAZOLE 500 MG/100 ML BAG 100 MG IVPB ×3 (03:37→18:39)
[2018-07-23 06:44] LABS: Abs Immature Grans 0.06 k/cumm (0.0-0.09); Absolute Basophil Count 0.02 k/cumm (0.0-0.2); Absolute Eosinophil Count 0.68 k/cumm (0.0-0.7); Absolute Lymphocyte Count 1.45 k/cumm (1.2-3.4); Absolute Monocyte Count 1.02 k/cumm (0.11-0.7); Absolute Neutrophil Count 6.75 k/cumm (1.2-6.7); Basophils % 0.2; Eosinophils % 6.8; HCT 35.6 % (40.0-50.0); HGB 11.6 g/dL (13.5-17.5); Immature Grans % 0.6; Lymphocytes % 14.5; Mean Corp. HGB Concentration 32.6 g/dL (32.0-36.0); Mean Corpuscular Hemoglobin 30.3 pg (27.0-33.0); Mean Platelet Volume 10.2 fL (8.0-11.0); Monocytes % 10.2; Neutrophils % 67.7; Platelet Count 198 x1000/uL (130-400); RBC 3.83 m/cumm (4.50-6.00); RBC Distribution Width 11.9 % (11.8-14.1); White Blood Cell Count 9.98 k/cumm (4.4-10.8)
[2018-07-23 07:03] LABS: BUN 16 mg/dL (7-18); CREATININE 1.57 mg/dL (0.70-1.30); Calcium 8.2 mg/dL (8.5-10.1); Chloride 105 mmol/L (98-107); Estimated GFR 42.61 (mL/min/1.73m2); Glucose 222 mg/dL (70-100); Magnesium 1.6 mg/dL (1.8-2.4); Potassium 3.9 mmol/L (3.5-5.1); Sodium 139 mmol/L (136-145)
--- NOTE | 2018-07-23 08:59 | PDOC.CMPRO ---
Care Management Progress Note S/O: Ovidio remains agreeable to home health for dressing changes and ostomy teaching. Anticipate he will transfer out to MED/SURG floor and begin ostomy teaching. He spoke in length with CHRISTIANO Nicholson regarding home setting and discussions with his SO about preparing their environment for his return. No change to overall plan. A:82 year old male admitted with diverticuliti abscess S/P Left hemicolectomy, sigmoid colon resection and end colostomy. P: Ovidio remains in the ICU receiving IV ABX at this time. Anticipate he will transition to the medical surgical floor. Ovidio will be discharged home medically ready with new home health nursing and wound management. CM faxed a notification to [facility]. ELVIN to continue to follow and support discharge planning considerations.
--- NOTE | 2018-07-23 09:15 | CMPROGNOTE_ITS ---
Care Management Progress Note S/O: Ovidio remains agreeable to home health for dressing changes and ostomy teaching. Anticipate he will transfer out to MED/SURG floor and begin ostomy teaching. He spoke in length with CHRISTIANO Nicholson regarding home setting and discussions with his SO about preparing their environment for his return. No change to overall plan. A:82 year old male admitted with diverticuliti abscess S/P Left hemicolectomy, sigmoid colon resection and end colostomy. P: Ovidio remains in the ICU receiving IV ABX at this time. Anticipate he will transition to the medical surgical floor. Ovidio will be discharged home medically ready with new home health nursing and wound management. CM faxed a notification to [facility]. ELVIN to continue to follow and support discharge planning considerations.
--- NOTE | 2018-07-23 09:33 | PGE_ITS ---
Documented by User: QUINN Hill 07/23/18 15:23 Date of Service Date of service: 07/23/18 Time of Service: 09:31 Assessment and Plan (1) S/P left hemicolectomy: Current visit: Yes Status: Acute POD #4 Started soft diet, tolerating well [place] [facility] [place] Ostomy is working well. Pain is currently well controlled. D/C Pang (2) DVT prophylaxis: Current visit: Yes Status: Acute (3) CAD (coronary artery disease): Current visit: Yes Status: Chronic Qualifiers: Associated angina: without angina Coronary Disease-Associated Artery/Lesion type: [place] artery [place] vs. transplanted heart: [place] heart Qualified Code(s): I25.10 - Atherosclerotic heart disease of [place] coronary artery without angina pectoris (4) Renal insufficiency: Current visit: Yes Status: Chronic (5) Hypertension: Current visit: Yes Status: Chronic Qualifiers: Hypertension type: unspecified Qualified Code(s): I10 - Essential (primary) hypertension (6) Diabetes: Current visit: Yes Status: Chronic Qualifiers: Chronic kidney disease stage: stage 2 (mild) Diabetes mellitus complication detail: with chronic kidney disease Diabetes mellitus complication status: with kidney complications Diabetes mellitus alf insulin use: without alf use Diabetes mellitus macular edema: Diabetes mellitus type: type 2 Diabetic retinopathy severity: Laterality: Proliferative retinopathy type: Qualified Code(s): E11.22 - Type 2 diabetes mellitus with diabetic chronic kidney disease; 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 Mr. Thompson reports that he is doing well and tolerated the soft diet tray last night for dinner. He denies any complaints of nausea or vomiting. He reports that he was up in the chair and ambulating with [facility] [place] yesterday. Exam GI Inspection: incision (Midline. Dressing in place) Palpation: soft, no guarding and nontender Auscultation: normal bowel sounds Objective Objective Clinical Data: Abnormal lab results 07/23/18 07/23/18 Range/Units 06:28 06:28 RBC 3.83 L (4.50-6.00) m/cumm Hgb 11.6 L (13.5-17.5) g/dL Hct 35.6 L (40.0-50.0) % Absolute Neutrophils 6.75 H (1.2-6.7) k/cumm Absolute Monocytes 1.02 H (0.11-0.7) k/cumm Creatinine 1.57 H (0.70-1.30) mg/dL Glucose 222 H (70-100) mg/dL Calcium 8.2 L (8.5-10.1) mg/dL Magnesium 1.6 L (1.8-2.4) mg/dL Vital Signs Temperature 37.1 C 07/23/18 04:40 Temperature Source Tympanic 07/23/18 04:40 Pulse 81 07/23/18 04:40 Pulse Rhythm Regular 07/19/18 08:23 Pulse 76 07/23/18 02:00 Respiratory Rate 22 07/23/18 02:00 Respiratory Effort Non-Labored 07/23/18 04:40 Respiratory Depth Normal 07/23/18 04:40 Respiratory Pattern Normal 07/23/18 04:40 Blood Pressure 125/71 07/23/18 04:01 Blood Pressure Mean 84 07/23/18 04:01 Blood Pressure Position Supine 07/23/18 00:05 Pulse Oximetry 92 L 07/23/18 04:40 Oxygen Delivery Method Room Air 07/22/18 20:05 Oxygen Flow Rate 0 07/22/18 20:05 Pain Level 0 07/23/18 04:40 Intake & Output 07/22/18 07/23/18 07/23/18 18:59 06:59 18:59 Intake Total 514.667 / 1174.667 660 / 1174.667 Output Total 1265 / 1905 640 / 1905 Balance -750.333 / -730.333 20 / -730.333 Weight 89.6 kg Intake: IV 246.667 / 546.667 300 / 546.667 Oral 268 / 628 360 / 628 Output: Urine 1225 / 1825 600 / 1825 Stool 40 / 80 40 / 80 Other: Urine Color Light Carmela Dark Carmela Urine Appearance Clear Clear Comment Pang in place Small amt of white, thick creamy drainage outside of meatal opening. Laboratory Results WBC 9.98 k/cumm (4.4-10.8) 07/23/18 06:28 RBC 3.83 m/cumm (4.50-6.00) L 07/23/18 06:28 Hgb 11.6 g/dL (13.5-17.5) L 07/23/18 06:28 Hct 35.6 % (40.0-50.0) L 07/23/18 06:28 MCV 93.0 fL (80-95) 07/23/18 06:28 MCH 30.3 pg (27.0-33.0) 07/23/18 06:28 MCHC 32.6 g/dL (32.0-36.0) 07/23/18 06:28 RDW 11.9 % (11.8-14.1) 07/23/18 06:28 Plt Count 198 x1000/uL (130-400) 07/23/18 06:28 MPV 10.2 fL (8.0-11.0) 07/23/18 06:28 Immature Gran % 0.6 07/23/18 06:28 Neutrophils % 67.7 07/23/18 06:28 Lymphocytes % 14.5 07/23/18 06:28 Monocytes % 10.2 07/23/18 06:28 Eosinophils % 6.8 07/23/18 06:28 Basophils % 0.2 07/23/18 06:28 Absolute Neutrophils 6.75 k/cumm (1.2-6.7) H 07/23/18 06:28 Absolute Lymphocytes 1.45 k/cumm (1.2-3.4) 07/23/18 06:28 Absolute Monocytes 1.02 k/cumm (0.11-0.7) H 07/23/18 06:28 Absolute Eosinophils 0.68 k/cumm (0.0-0.7) 07/23/18 06:28 Absolute Basophils 0.02 k/cumm (0.0-0.2) 07/23/18 06:28 Differential Comment Manual differential 07/18/18 07:10 RBC Morphology Normal 07/18/18 07:10 Sodium 139 mmol/L (136-145) 07/23/18 06:28 Potassium 3.9 mmol/L (3.5-5.1) 07/23/18 06:28 Chloride 105 mmol/L (98-107) 07/23/18 06:28 Carbon Dioxide 28.0 mmol/L (21.0-32.0) 07/23/18 06:28 Anion Gap 6.0 mmol/L (3-11) 07/23/18 06:28 BUN 16 mg/dL (7-18) 07/23/18 06:28 Creatinine 1.57 mg/dL (0.70-1.30) H 07/23/18 06:28 Estimated GFR/1.73 m2 42.61 (mL/min/1.73m2) 07/23/18 06:28 Glucose 222 mg/dL (70-100) H 07/23/18 06:28 Lactate 1.9 mmol/l (0.6-1.4) H 07/21/18 09:12 Calcium 8.2 mg/dL (8.5-10.1) L 07/23/18 06:28 Magnesium 1.6 mg/dL (1.8-2.4) L 07/23/18 06:28 Total Bilirubin 0.6 mg/dL (0.2-1.0) 07/18/18 07:10 AST 19 U/L (15-37) 07/18/18 07:10 ALT 26 U/L (12-78) 07/18/18 07:10 Alkaline Phosphatase 125 U/L (46-116) H 07/18/18 07:10 Total Protein 6.8 g/dL (6.4-8.2) 07/18/18 07:10 Albumin 3.3 g/dL (3.4-5.0) L 07/18/18 07:10 Lipase 135 U/L (73-393) 07/18/18 07:10 Patient ABO/Rh O Positive 07/19/18 11:40 Antibody Screen Negative 07/19/18 11:40 Documented by User: Marilyn López DO 07/23/18 17:07 Assessment and Plan (1) S/P left hemicolectomy: Current visit: Yes Status: Acute pt seen and examined. agree w/ above needs to do ostomy teaching still has much swelling- will do another round of IV lasix and pull catheter tomorrow am pt is doing well from sx stand point will need home health care and supplies hope to dc home in am if medically stable
[2018-07-23] MEDS: Potassium Chloride 10 MEQ TABCR PO (09:38)
[2018-07-23] MEDS: Aspirin 81 MG CHEW PO (09:38)
[2018-07-23] MEDS: amLODIPine 10 MG TAB PO (09:38)
[2018-07-23] MEDS: MAGNESIUM SULFATE 2 GM/50 ML BAG IVPB ×2 (09:39→18:38)
[2018-07-23] MEDS: Normal Saline Flush 10 ML SYR IVP ×3 (10:08→22:52)
--- NOTE | 2018-07-23 12:53 | W.PM.PROGNOT ---
Date of Service Date of service: 07/23/18 Time of Service: 12:54 Assessment and Plan (1) Diverticulitis of large intestine with abscess: Current visit: Yes Status: Acute Worsening status necessitating Ex-Lap on 07/19 with discovery of perforated abscess - patient is now s/p sigmoid resection and end colostomy. Also on antibiotic therapy with combination Cipro/Flagyl. Surgical specimen with moderate WBCs on Gram Stain, Pansensitive E. Coli on cultures. Appears stable and improved. Qualifiers: Diverticulitis bleeding: without bleeding Qualified Code(s): K57.20 - Diverticulitis of large intestine with perforation and abscess without bleeding (2) Hypotension: Current visit: Yes Status: Acute In setting of Acute Diverticulitis with Perforated Abscess and acute abdomen. Patient's blood pressure is vastly improved following surgical intervention, and previously hypertensive. Will restart MYRA-I given cardiac history - was on hold given recent YEYO. Continue BB and CCB therapy. Discontinue a-juma therapy today. Given overall volume overload also administered low dose IV Diuretic previously. Continue to monitor blood pressure with med changes, and renal function with reinitiation of Lisinopril. Qualifiers: Hypotension type: unspecified hypotension type Trimester: Qualified Code(s): I95.9 - Hypotension, unspecified (3) CHF (congestive heart failure): Current visit: Yes Status: Chronic Ischemic Cardiomyopathy, with initial LVEF of 35%, now fully recovered by ECHO 09/2017. No evidence of failure, with mild volume overload currently secondary to fluid resuscitation. Restart MYRA-I. Continue BB. (4) CAD (coronary artery disease): Current visit: Yes Status: Chronic History of CAD with [facility] 02/2017, s/p MINNIE to LAD and PCI to the 1st Diag. Patient is more than 12 months out of intervention and insertion of stent - can hold DAPT with aspirin and plavix. Resumed aspirin previously, and may resume plavix when okay from surgery standpoint. Continue BB therapy as above. Also resumed statin therapy. Qualifiers: Coronary Disease-Associated Artery/Lesion type: [place] artery [place] vs. transplanted heart: [place] heart Associated angina: without angina Qualified Code(s): I25.10 - Atherosclerotic heart disease of [place] coronary artery without angina pectoris (5) Diabetes: Current visit: Yes Status: Chronic Continue to hold metformin while hospitalized. Continue sliding scale coverage. Blood sugars in the 100-200's. 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 Brooke in place. Qualifiers: Lower urinary tract symptom presence: unspecified whether lower urinary tract symptoms present Lower urinary tract symptom detail: Qualified Code(s): N40.0 - Benign prostatic hyperplasia without lower urinary tract symptoms (7) DVT prophylaxis: Current visit: Yes Status: Acute Continue SC Lovenox. Continue SCDs. Also on PPI for GI Prophylaxis. Subjective Interval history since last seen: 82 year old man with a prior medical history significant for CAD and ICMP, admitted to the surgical service on 07/18 from [facility] Emergency Department with a diagnosis of Diverticular Abscess. Mr. Thompson has a histor of CAD and prior NSTEMI, for which he underwent a LHC with insertion of a MINNIE to the LAD and PCI/Angioplasty of the 1st diag in February of 2018. He had a resultant ICMP with LVEF 35%, fully recovered by repeat ECHO in January of 2018 that also no evidence of wall motion abnormalities. Other medical history includes AAA s/p Endograft repair, DM, HTN, Dyslipidemia, and a prior history of Tobacco use. The patient presented to the ED with complaint of worsening abdominal pain for one week. Imaging showed evidence of a Diverticular Abscess. He was admitted by Dr. Renae and initiated on antibiotic therapy. Further review of imaging by IR at [facility] deemed it appropriate for drainage, with plans for transfer for IR Procedure on the following Friday morning. Mr. Thompson was also noted to be hypertensive initially at time of admission. However, on the morning of 07/19 he was noted to have a change in his status, with worsening symptoms, hypotension, and an acute abdomen by exam. Transfer to [facility] was not possible due to lack of bed availability, and the patient was taken to the OR for an Exploratory Laparotomy - found to have a perforated abscess and underwent a Sigmoid Resection with end Colostomy and insertion of a right sided SC TLC. Medicine service was consulted for medical co-management of patient following his surgery. Continues to do well without significant complaints this morning. His arterial line and NGT were discontinued, with brooke catheter still in place but due for removal today. He is tolerating a liquid diet, being advanced by surgery. Hypertension resolved with addition of alpha blockers to regimen. Labs with improved renal function. No other overnight events reported. Remains afebrile. Exam Narrative Exam Narrative: General: Patient appears comfortable, AAOX3, NAD. OOB in chair. Skin: Right sided TLC Central Line still in place. Neck: Supple CV: Regular, nontachycardic, S1S2, No overt rubs, murmurs, or gallops. Pulmonary: Clear to auscultation bilaterally, no crackles, wheezing, or rhonchi on limited anterior and lateral exam Abdomen: Bowel Sounds diminished, abdomen is distended but appears soft. LLQ Ostomy noted. Vascular: Mild b/l LE edema Psych: Normal mood and affect. Objective Objective Clinical Data: Abnormal lab results 07/23/18 07/23/18 Range/Units 06:28 06:28 RBC 3.83 L (4.50-6.00) m/cumm Hgb 11.6 L (13.5-17.5) g/dL Hct 35.6 L (40.0-50.0) % Absolute Neutrophils 6.75 H (1.2-6.7) k/cumm Absolute Monocytes 1.02 H (0.11-0.7) k/cumm Creatinine 1.57 H (0.70-1.30) mg/dL Glucose 222 H (70-100) mg/dL Calcium 8.2 L (8.5-10.1) mg/dL Magnesium 1.6 L (1.8-2.4) mg/dL Vital Signs Temperature 37.1 C 07/23/18 04:40 Temperature Source Tympanic 07/23/18 04:40 Pulse 93 H 07/23/18 10:01 Pulse Rhythm Regular 07/19/18 08:23 Pulse 91 H 07/23/18 10:01 Respiratory Rate 20 07/23/18 10:01 Respiratory Effort Non-Labored 07/23/18 04:40 Respiratory Depth Normal 07/23/18 04:40 Respiratory Pattern Normal 07/23/18 04:40 Blood Pressure 118/79 07/23/18 10:01 Blood Pressure Mean 89 07/23/18 10:01 Blood Pressure Position Supine 07/23/18 00:05 Pulse Oximetry 93 L 07/23/18 10:01 Oxygen Delivery Method Room Air 07/22/18 20:05 Oxygen Flow Rate 0 07/22/18 20:05 Pain Level 0 07/23/18 04:40 Intake & Output 07/22/18 07/23/18 07/23/18 23:59 11:59 23:59 Intake Total 116.667 / 614.667 860 / 860 Output Total 1405 / 3005 500 / 500 Balance -1288.333 / -2390.333 360 / 360 Weight 89.6 kg Intake: IV 66.667 / 346.667 500 / 500 Oral 50 / 268 360 / 360 Output: Urine 1325 / 2750 500 / 500 Stool 80 / 255 Other: Urine Color Yellow Dark Carmela [place] Urine Appearance Clear Clear Comment Brooke is patent and draining. Small amt of white, thick creamy drainage outside of meatal opening. Laboratory Results WBC 9.98 k/cumm (4.4-10.8) 07/23/18 06:28 RBC 3.83 m/cumm (4.50-6.00) L 07/23/18 06:28 Hgb 11.6 g/dL (13.5-17.5) L 07/23/18 06:28 Hct 35.6 % (40.0-50.0) L 07/23/18 06:28 MCV 93.0 fL (80-95) 07/23/18 06:28 MCH 30.3 pg (27.0-33.0) 07/23/18 06:28 MCHC 32.6 g/dL (32.0-36.0) 07/23/18 06:28 RDW 11.9 % (11.8-14.1) 07/23/18 06:28 Plt Count 198 x1000/uL (130-400) 07/23/18 06:28 MPV 10.2 fL (8.0-11.0) 07/23/18 06:28 Immature Gran % 0.6 07/23/18 06:28 Neutrophils % 67.7 07/23/18 06:28 Lymphocytes % 14.5 07/23/18 06:28 Monocytes % 10.2 07/23/18 06:28 Eosinophils % 6.8 07/23/18 06:28 Basophils % 0.2 07/23/18 06:28 Absolute Neutrophils 6.75 k/cumm (1.2-6.7) H 07/23/18 06:28 Absolute Lymphocytes 1.45 k/cumm (1.2-3.4) 07/23/18 06:28 Absolute Monocytes 1.02 k/cumm (0.11-0.7) H 07/23/18 06:28 Absolute Eosinophils 0.68 k/cumm (0.0-0.7) 07/23/18 06:28 Absolute Basophils 0.02 k/cumm (0.0-0.2) 07/23/18 06:28 Differential Comment Manual differential 07/18/18 07:10 RBC Morphology Normal 07/18/18 07:10 Sodium 139 mmol/L (136-145) 07/23/18 06:28 Potassium 3.9 mmol/L (3.5-5.1) 07/23/18 06:28 Chloride 105 mmol/L (98-107) 07/23/18 06:28 Carbon Dioxide 28.0 mmol/L (21.0-32.0) 07/23/18 06:28 Anion Gap 6.0 mmol/L (3-11) 07/23/18 06:28 BUN 16 mg/dL (7-18) 07/23/18 06:28 Creatinine 1.57 mg/dL (0.70-1.30) H 07/23/18 06:28 Estimated GFR/1.73 m2 42.61 (mL/min/1.73m2) 07/23/18 06:28 Glucose 222 mg/dL (70-100) H 07/23/18 06:28 Lactate 1.9 mmol/l (0.6-1.4) H 07/21/18 09:12 Calcium 8.2 mg/dL (8.5-10.1) L 07/23/18 06:28 Magnesium 1.6 mg/dL (1.8-2.4) L 07/23/18 06:28 Total Bilirubin 0.6 mg/dL (0.2-1.0) 07/18/18 07:10 AST 19 U/L (15-37) 07/18/18 07:10 ALT 26 U/L (12-78) 07/18/18 07:10 Alkaline Phosphatase 125 U/L (46-116) H 07/18/18 07:10 Total Protein 6.8 g/dL (6.4-8.2) 07/18/18 07:10 Albumin 3.3 g/dL (3.4-5.0) L 07/18/18 07:10 Lipase 135 U/L (73-393) 07/18/18 07:10 Patient ABO/Rh O Positive 07/19/18 11:40 Antibody Screen Negative 07/19/18 11:40
--- NOTE | 2018-07-23 12:56 | PGE_ITS ---
Date of Service Date of service: 07/23/18 Time of Service: 12:54 Assessment and Plan (1) Diverticulitis of large intestine with abscess: Current visit: Yes Status: Acute Worsening status necessitating Ex-Lap on 07/19 with discovery of perforated abscess - patient is now s/p sigmoid resection and end colostomy. Also on antibiotic therapy with combination Cipro/Flagyl. Surgical specimen with moderate WBCs on Gram Stain, Pansensitive E. Coli on cultures. Appears stable and improved. Qualifiers: Diverticulitis bleeding: without bleeding Qualified Code(s): K57.20 - Diverticulitis of large intestine with perforation and abscess without bleeding (2) Hypotension: Current visit: Yes Status: Acute In setting of Acute Diverticulitis with Perforated Abscess and acute abdomen. Patient's blood pressure is vastly improved following surgical intervention, and previously hypertensive. Will restart MYRA-I given cardiac history - was on hold given recent YEYO. Continue BB and CCB therapy. Discontinue a-juma therapy today. Given overall volume overload also administered low dose IV Diuretic previously. Continue to monitor blood pressure with med changes, and renal function with reinitiation of Lisinopril. Qualifiers: Hypotension type: unspecified hypotension type Trimester: Qualified Code(s): I95.9 - Hypotension, unspecified (3) CHF (congestive heart failure): Current visit: Yes Status: Chronic Ischemic Cardiomyopathy, with initial LVEF of 35%, now fully recovered by ECHO 09/2017. No evidence of failure, with mild volume overload currently secondary to fluid resuscitation. Restart MYRA-I. Continue BB. (4) CAD (coronary artery disease): Current visit: Yes Status: Chronic History of CAD with [facility] 02/2017, s/p MINNIE to LAD and PCI to the 1st Diag. Patient is more than 12 months out of intervention and insertion of stent - can hold DAPT with aspirin and plavix. Resumed aspirin previously, and may resume plavix when okay from surgery standpoint. Continue BB therapy as above. Also resumed statin therapy. Qualifiers: Coronary Disease-Associated Artery/Lesion type: [place] artery [place] vs. transplanted heart: [place] heart Associated angina: without angina Qualified Code(s): I25.10 - Atherosclerotic heart disease of [place] coronary artery without angina pectoris (5) Diabetes: Current visit: Yes Status: Chronic Continue to hold metformin while hospitalized. Continue sliding scale coverage. Blood sugars in the 100-200's. 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 Brooke in place. Qualifiers: Lower urinary tract symptom presence: unspecified whether lower urinary tract symptoms present Lower urinary tract symptom detail: Qualified Code(s): N40.0 - Benign prostatic hyperplasia without lower urinary tract symptoms (7) DVT prophylaxis: Current visit: Yes Status: Acute Continue SC Lovenox. Continue SCDs. Also on PPI for GI Prophylaxis. Subjective Interval history since last seen: 82 year old man with a prior medical history significant for CAD and ICMP, admitted to the surgical service on 07/18 from [facility] Emergency Department with a diagnosis of Diverticular Abscess. Mr. Thompson has a histor of CAD and prior NSTEMI, for which he underwent a LHC with insertion of a MINNIE to the LAD and PCI/Angioplasty of the 1st diag in February of 2018. He had a resultant ICMP with LVEF 35%, fully recovered by repeat ECHO in January of 2018 that also no evidence of wall motion abnormalities. Other medical history includes AAA s/p Endograft repair, DM, HTN, Dyslipidemia, and a prior history of Tobacco use. The patient presented to the ED with complaint of worsening abdominal pain for one week. Imaging showed evidence of a Diverticular Abscess. He was admitted by Dr. Renae and initiated on antibiotic therapy. Further review of imaging by IR at [facility] deemed it appropriate for drainage, with plans for transfer for IR Procedure on the following Friday morning. Mr. Thompson was also noted to be hypertensive initially at time of admission. However, on the morning of 07/19 he was noted to have a change in his status, with worsening symptoms, hypotension, and an acute abdomen by exam. Transfer to [facility] was not possible due to lack of bed availability, and the patient was taken to the OR for an Exploratory Laparotomy - found to have a perforated abscess and underwent a Sigmoid Resection with end Colostomy and insertion of a right sided SC TLC. Medicine service was consulted for medical co-management of patient following his surgery. Continues to do well without significant complaints this morning. His arterial line and NGT were discontinued, with brooke catheter still in place but due for removal today. He is tolerating a liquid diet, being advanced by surgery. Hypertension resolved with addition of alpha blockers to regimen. Labs with improved renal function. No other overnight events reported. Remains afebrile. Exam Narrative Exam Narrative: General: Patient appears comfortable, AAOX3, NAD. OOB in chair. Skin: Right sided TLC Central Line still in place. Neck: Supple CV: Regular, nontachycardic, S1S2, No overt rubs, murmurs, or gallops. Pulmonary: Clear to auscultation bilaterally, no crackles, wheezing, or rhonchi on limited anterior and lateral exam Abdomen: Bowel Sounds diminished, abdomen is distended but appears soft. LLQ Ostomy noted. Vascular: Mild b/l LE edema Psych: Normal mood and affect. Objective Objective Clinical Data: Abnormal lab results 07/23/18 07/23/18 Range/Units 06:28 06:28 RBC 3.83 L (4.50-6.00) m/cumm Hgb 11.6 L (13.5-17.5) g/dL Hct 35.6 L (40.0-50.0) % Absolute Neutrophils 6.75 H (1.2-6.7) k/cumm Absolute Monocytes 1.02 H (0.11-0.7) k/cumm Creatinine 1.57 H (0.70-1.30) mg/dL Glucose 222 H (70-100) mg/dL Calcium 8.2 L (8.5-10.1) mg/dL Magnesium 1.6 L (1.8-2.4) mg/dL Vital Signs Temperature 37.1 C 07/23/18 04:40 Temperature Source Tympanic 07/23/18 04:40 Pulse 93 H 07/23/18 10:01 Pulse Rhythm Regular 07/19/18 08:23 Pulse 91 H 07/23/18 10:01 Respiratory Rate 20 07/23/18 10:01 Respiratory Effort Non-Labored 07/23/18 04:40 Respiratory Depth Normal 07/23/18 04:40 Respiratory Pattern Normal 07/23/18 04:40 Blood Pressure 118/79 07/23/18 10:01 Blood Pressure Mean 89 07/23/18 10:01 Blood Pressure Position Supine 07/23/18 00:05 Pulse Oximetry 93 L 07/23/18 10:01 Oxygen Delivery Method Room Air 07/22/18 20:05 Oxygen Flow Rate 0 07/22/18 20:05 Pain Level 0 07/23/18 04:40 Intake & Output 07/22/18 07/23/18 07/23/18 23:59 11:59 23:59 Intake Total 116.667 / 614.667 860 / 860 Output Total 1405 / 3005 500 / 500 Balance -1288.333 / -2390.333 360 / 360 Weight 89.6 kg Intake: IV 66.667 / 346.667 500 / 500 Oral 50 / 268 360 / 360 Output: Urine 1325 / 2750 500 / 500 Stool 80 / 255 Other: Urine Color Yellow Dark Carmela [place] Urine Appearance Clear Clear Comment Brooke is patent and draining. Small amt of white, thick creamy drainage outside of meatal opening. Laboratory Results WBC 9.98 k/cumm (4.4-10.8) 07/23/18 06:28 RBC 3.83 m/cumm (4.50-6.00) L 07/23/18 06:28 Hgb 11.6 g/dL (13.5-17.5) L 07/23/18 06:28 Hct 35.6 % (40.0-50.0) L 07/23/18 06:28 MCV 93.0 fL (80-95) 07/23/18 06:28 MCH 30.3 pg (27.0-33.0) 07/23/18 06:28 MCHC 32.6 g/dL (32.0-36.0) 07/23/18 06:28 RDW 11.9 % (11.8-14.1) 07/23/18 06:28 Plt Count 198 x1000/uL (130-400) 07/23/18 06:28 MPV 10.2 fL (8.0-11.0) 07/23/18 06:28 Immature Gran % 0.6 07/23/18 06:28 Neutrophils % 67.7 07/23/18 06:28 Lymphocytes % 14.5 07/23/18 06:28 Monocytes % 10.2 07/23/18 06:28 Eosinophils % 6.8 07/23/18 06:28 Basophils % 0.2 07/23/18 06:28 Absolute Neutrophils 6.75 k/cumm (1.2-6.7) H 07/23/18 06:28 Absolute Lymphocytes 1.45 k/cumm (1.2-3.4) 07/23/18 06:28 Absolute Monocytes 1.02 k/cumm (0.11-0.7) H 07/23/18 06:28 Absolute Eosinophils 0.68 k/cumm (0.0-0.7) 07/23/18 06:28 Absolute Basophils 0.02 k/cumm (0.0-0.2) 07/23/18 06:28 Differential Comment Manual differential 07/18/18 07:10 RBC Morphology Normal 07/18/18 07:10 Sodium 139 mmol/L (136-145) 07/23/18 06:28 Potassium 3.9 mmol/L (3.5-5.1) 07/23/18 06:28 Chloride 105 mmol/L (98-107) 07/23/18 06:28 Carbon Dioxide 28.0 mmol/L (21.0-32.0) 07/23/18 06:28 Anion Gap 6.0 mmol/L (3-11) 07/23/18 06:28 BUN 16 mg/dL (7-18) 07/23/18 06:28 Creatinine 1.57 mg/dL (0.70-1.30) H 07/23/18 06:28 Estimated GFR/1.73 m2 42.61 (mL/min/1.73m2) 07/23/18 06:28 Glucose 222 mg/dL (70-100) H 07/23/18 06:28 Lactate 1.9 mmol/l (0.6-1.4) H 07/21/18 09:12 Calcium 8.2 mg/dL (8.5-10.1) L 07/23/18 06:28 Magnesium 1.6 mg/dL (1.8-2.4) L 07/23/18 06:28 Total Bilirubin 0.6 mg/dL (0.2-1.0) 07/18/18 07:10 AST 19 U/L (15-37) 07/18/18 07:10 ALT 26 U/L (12-78) 07/18/18 07:10 Alkaline Phosphatase 125 U/L (46-116) H 07/18/18 07:10 Total Protein 6.8 g/dL (6.4-8.2) 07/18/18 07:10 Albumin 3.3 g/dL (3.4-5.0) L 07/18/18 07:10 Lipase 135 U/L (73-393) 07/18/18 07:10 Patient ABO/Rh O Positive 07/19/18 11:40 Antibody Screen Negative 07/19/18 11:40
[2018-07-23] MEDS: Enoxaparin 40 MG/0.4 ML SYR SC (14:27)
[2018-07-23] MEDS: Furosemide 20 MG/2 ML VIAL IVP (17:19)
--- NOTE | 2018-07-23 17:24 | PDOC.HHF2F ---
1. Encounter Date and Reason I certify that CALI PUGA was seen by Marilyn López on 07/23/18 and that I had a [id number] encounter with this patient that meets the physician face to face encounter requirements. 2. Clinical Findings Supporting Skilled Need and Homebound Status I certify that home health services are medically necessary, include either intermittent mcfp and/or physical/speech therapy, and that this patient is homebound in that absences from the home require considerable and taxing effort and are infrequent or of short duration, or are attributable to the need to receive medical care. [X] (a) Attached documentation from encounter provides clinical findings supporting skilled need and homebound status (including what assistance patient requires to leave the home). The encounter with the patient was in whole, or in part, for the following medical condition, which is the primary reason for home health care: DIVERTICULAR ABSCESS and colon perforation Group Home: daily dressing changes ostomy care Physical Therapy: Speech Therapy: Homebound: 3. Certification and Authentication I certify that I composed the above information based on my clinical judgment relating to this patient's medical condition and, if applicable, clinical findings communicated to me by the NPP or inpatient physician who performed the Home Health Referral. All further orders will be obtained through (Community Based Physician - PCP)
[2018-07-23] MEDS: Tamsulosin 0.4 MG CAPCR PO (20:32)
[2018-07-23] MEDS: Lisinopril 20 MG TAB PO (20:32)
[2018-07-23] MEDS: Atorvastatin 40 MG TAB PO (20:32)
[2018-07-23] MEDS: Pantoprazole 40 MG VIAL IVP (20:32)
[2018-07-24] VITALS (24 sets, daily range): BP systolic 101–135; BP diastolic 66–80; PULSE 60–104; RESP 14–24; TEMP 35.8–36.9; O2SAT 91–96
[2018-07-24] MEDS: Metoprolol 25 MG TAB PO ×3 (01:12→23:15)
[2018-07-24] MEDS: MetroNIDAZOLE 500 MG/100 ML BAG 100 MG IVPB ×3 (03:45→20:09)
[2018-07-24] MEDS: Normal Saline Flush 10 ML SYR IVP ×2 (05:15→20:10)
[2018-07-24 07:09] LABS: Abs Immature Grans 0.17 k/cumm (0.0-0.09); Absolute Eosinophil Count 0.67 k/cumm (0.0-0.7); Absolute Monocyte Count 1.09 k/cumm (0.11-0.7); Absolute Neutrophil Count 7.77 k/cumm (1.2-6.7); Basophils % 0.4; Eosinophils % 5.9; HCT 37.2 % (40.0-50.0); HGB 11.9 g/dL (13.5-17.5); Immature Grans % 1.5; Lymphocytes % 14.1; Mean Corpuscular Hemoglobin 29.8 pg (27.0-33.0); Mean Platelet Volume 10.5 fL (8.0-11.0); Monocytes % 9.6; Neutrophils % 68.5; Platelet Count 230 x1000/uL (130-400); RBC Distribution Width 11.9 % (11.8-14.1); White Blood Cell Count 11.34 k/cumm (4.4-10.8)
[2018-07-24 07:22] LABS: Anion Gap 7.2 mmol/L (3-11); BUN 16 mg/dL (7-18); CO2 26.8 mmol/L (21.0-32.0); Calcium 8.3 mg/dL (8.5-10.1); Chloride 104 mmol/L (98-107); Estimated GFR 41.69 (mL/min/1.73m2); Glucose 239 mg/dL (70-100); Sodium 138 mmol/L (136-145)
[2018-07-24 07:23] LABS: Absolute Basophil Count 0.05 k/cumm (0.0-0.2)
[2018-07-24] MEDS: Insulin Aspart 300 UNITS/3 ML PEN SC ×3 (09:03→18:02)
[2018-07-24] MEDS: Aspirin 81 MG CHEW PO (09:05)
[2018-07-24] MEDS: amLODIPine 10 MG TAB PO (09:05)
--- NOTE | 2018-07-24 09:06 | W.PM.PROGNOT ---
Documented by User: QUINN Hill 07/24/18 09:16 Date of Service Date of service: 07/24/18 Time of Service: 09:07 Assessment and Plan (1) S/P left hemicolectomy: Current visit: Yes Status: Acute POD #5 Started soft diet, tolerating well Ambulating with [facility] staff. Ostomy is working well. Ordered for patient education re: Ostomy care Pain is currently well controlled. Pang was removed this morning. He has not urinated yet. Disposition: D/C home with home health, following ostomy education (2) DVT prophylaxis: Current visit: Yes Status: Acute (3) CAD (coronary artery disease): Current visit: Yes Status: Chronic Qualifiers: Associated angina: without angina Coronary Disease-Associated Artery/Lesion type: [place] artery [place] vs. transplanted heart: [place] heart Qualified Code(s): I25.10 - Atherosclerotic heart disease of [place] coronary artery without angina pectoris (4) Renal insufficiency: Current visit: Yes Status: Chronic (5) Hypertension: Current visit: Yes Status: Chronic Qualifiers: Hypertension type: unspecified Qualified Code(s): I10 - Essential (primary) hypertension (6) Diabetes: Current visit: Yes Status: Chronic Qualifiers: Chronic kidney disease stage: stage 2 (mild) Diabetes mellitus complication detail: with chronic kidney disease Diabetes mellitus complication status: with kidney complications Diabetes mellitus assisted insulin use: without assisted use Diabetes mellitus macular edema: Diabetes mellitus type: type 2 Diabetic retinopathy severity: Laterality: Proliferative retinopathy type: Qualified Code(s): E11.22 - Type 2 diabetes mellitus with diabetic chronic kidney disease; 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 Denies nausea, vomiting or fevers. Reports that his midline incision is sore at times. He reports tolerating a surgical soft diet. C/o mild RLQ discomfort when I press on it. Exam Const General: cooperative and comfortable Orientation: alert and oriented x3 GI Inspection: incision (dressing in place. No erythema, swelling or warmth along the wound edges. ) Palpation: soft, no guarding and tender in the LLQ Auscultation: normal bowel sounds Objective Objective Clinical Data: Abnormal lab results 07/24/18 07/24/18 Range/Units 06:15 06:15 WBC 11.34 H (4.4-10.8) k/cumm RBC 4.00 L (4.50-6.00) m/cumm Hgb 11.9 L (13.5-17.5) g/dL Hct 37.2 L (40.0-50.0) % Absolute Neutrophils 7.77 H (1.2-6.7) k/cumm Absolute Monocytes 1.09 H (0.11-0.7) k/cumm Creatinine 1.60 H (0.70-1.30) mg/dL Glucose 239 H (70-100) mg/dL Calcium 8.3 L (8.5-10.1) mg/dL Vital Signs Temperature 36.6 C 07/24/18 04:00 Temperature Source Tympanic 07/24/18 01:22 Pulse 60 07/24/18 04:00 Pulse Rhythm Regular 07/19/18 08:23 Pulse 60 07/24/18 04:00 Respiratory Rate 17 07/24/18 02:01 Respiratory Effort Non-Labored 07/24/18 04:00 Respiratory Depth Normal 07/24/18 04:00 Respiratory Pattern Normal 07/24/18 04:00 Blood Pressure 128/66 07/24/18 04:00 Blood Pressure Mean 81 07/24/18 04:00 Blood Pressure Position Supine 07/24/18 04:00 Pulse Oximetry 94 L 07/23/18 21:15 Oxygen Delivery Method Room Air 07/24/18 04:00 Oxygen Flow Rate 0 07/24/18 04:00 Pain Level 0 07/23/18 23:55 Intake & Output 07/23/18 07/24/18 07/24/18 18:59 06:59 18:59 Intake Total 560 / 770 210 / 770 Output Total 50 / 700 650 / 700 Balance 510 / 70 -440 / 70 Weight 90 kg Intake: IV 380 / 550 170 / 550 Oral 180 / 220 40 / 220 Output: Urine 650 / 650 Stool 50 / 50 Other: Urine Color Straw Urine Appearance Clear Comment Pang catheter intact and draining clear yellow urine. Small amt of white, thick creamy drainage outside of meatal opening Laboratory Results WBC 11.34 k/cumm (4.4-10.8) H 07/24/18 06:15 RBC 4.00 m/cumm (4.50-6.00) L 07/24/18 06:15 Hgb 11.9 g/dL (13.5-17.5) L 07/24/18 06:15 Hct 37.2 % (40.0-50.0) L 07/24/18 06:15 MCV 93.0 fL (80-95) 07/24/18 06:15 MCH 29.8 pg (27.0-33.0) 07/24/18 06:15 MCHC 32.0 g/dL (32.0-36.0) 07/24/18 06:15 RDW 11.9 % (11.8-14.1) 07/24/18 06:15 Plt Count 230 x1000/uL (130-400) 07/24/18 06:15 MPV 10.5 fL (8.0-11.0) 07/24/18 06:15 Immature Gran % 1.5 07/24/18 06:15 Neutrophils % 68.5 07/24/18 06:15 Lymphocytes % 14.1 07/24/18 06:15 Monocytes % 9.6 07/24/18 06:15 Eosinophils % 5.9 07/24/18 06:15 Basophils % 0.4 07/24/18 06:15 Absolute Neutrophils 7.77 k/cumm (1.2-6.7) H 07/24/18 06:15 Absolute Lymphocytes 1.60 k/cumm (1.2-3.4) 07/24/18 06:15 Absolute Monocytes 1.09 k/cumm (0.11-0.7) H 07/24/18 06:15 Absolute Eosinophils 0.67 k/cumm (0.0-0.7) 07/24/18 06:15 Absolute Basophils 0.05 k/cumm (0.0-0.2) 07/24/18 06:15 Differential Comment Manual differential 07/18/18 07:10 RBC Morphology Normal 07/18/18 07:10 Sodium 138 mmol/L (136-145) 07/24/18 06:15 Potassium 4.0 mmol/L (3.5-5.1) 07/24/18 06:15 Chloride 104 mmol/L (98-107) 07/24/18 06:15 Carbon Dioxide 26.8 mmol/L (21.0-32.0) 07/24/18 06:15 Anion Gap 7.2 mmol/L (3-11) 07/24/18 06:15 BUN 16 mg/dL (7-18) 07/24/18 06:15 Creatinine 1.60 mg/dL (0.70-1.30) H 07/24/18 06:15 Estimated GFR/1.73 m2 41.69 (mL/min/1.73m2) 07/24/18 06:15 Glucose 239 mg/dL (70-100) H 07/24/18 06:15 Lactate 1.9 mmol/l (0.6-1.4) H 07/21/18 09:12 Calcium 8.3 mg/dL (8.5-10.1) L 07/24/18 06:15 Magnesium 2.0 mg/dL (1.8-2.4) 07/24/18 06:15 Total Bilirubin 0.6 mg/dL (0.2-1.0) 07/18/18 07:10 AST 19 U/L (15-37) 07/18/18 07:10 ALT 26 U/L (12-78) 07/18/18 07:10 Alkaline Phosphatase 125 U/L (46-116) H 07/18/18 07:10 Total Protein 6.8 g/dL (6.4-8.2) 07/18/18 07:10 Albumin 3.3 g/dL (3.4-5.0) L 07/18/18 07:10 Lipase 135 U/L (73-393) 07/18/18 07:10 Patient ABO/Rh O Positive 07/19/18 11:40 Antibody Screen Negative 07/19/18 11:40 Documented by User: Marilyn López DO 07/24/18 18:47 Assessment and Plan (1) S/P left hemicolectomy: Current visit: Yes Status: Acute pt can't see to empty the ostomy and signif other doesn't want to. Hopefully nursing will be able to do some teaching tonight. Pt was able to urinate this afternoon. No pain or burning. no cp or sob. no productive cough. leg swelling is down. resumed plavix today and monitor for bleeding. plan for d/c home in am
--- NOTE | 2018-07-24 09:09 | PGE_ITS ---
Documented by User: QUINN Hill 07/24/18 09:16 Date of Service Date of service: 07/24/18 Time of Service: 09:07 Assessment and Plan (1) S/P left hemicolectomy: Current visit: Yes Status: Acute POD #5 Started soft diet, tolerating well Ambulating with [facility] staff. Ostomy is working well. Ordered for patient education re: Ostomy care Pain is currently well controlled. Pang was removed this morning. He has not urinated yet. Disposition: D/C home with home health, following ostomy education (2) DVT prophylaxis: Current visit: Yes Status: Acute (3) CAD (coronary artery disease): Current visit: Yes Status: Chronic Qualifiers: Associated angina: without angina Coronary Disease-Associated Artery/Lesion type: [place] artery [place] vs. transplanted heart: [place] heart Qualified Code(s): I25.10 - Atherosclerotic heart disease of [place] coronary artery without angina pectoris (4) Renal insufficiency: Current visit: Yes Status: Chronic (5) Hypertension: Current visit: Yes Status: Chronic Qualifiers: Hypertension type: unspecified Qualified Code(s): I10 - Essential (primary) hypertension (6) Diabetes: Current visit: Yes Status: Chronic Qualifiers: Chronic kidney disease stage: stage 2 (mild) Diabetes mellitus complication detail: with chronic kidney disease Diabetes mellitus complication status: with kidney complications Diabetes mellitus correction insulin use: without correction use Diabetes mellitus macular edema: Diabetes mellitus type: type 2 Diabetic retinopathy severity: Laterality: Proliferative retinopathy type: Qualified Code(s): E11.22 - Type 2 diabetes mellitus with diabetic chronic kidney disease; 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 Denies nausea, vomiting or fevers. Reports that his midline incision is sore at times. He reports tolerating a surgical soft diet. C/o mild RLQ discomfort when I press on it. Exam Const General: cooperative and comfortable Orientation: alert and oriented x3 GI Inspection: incision (dressing in place. No erythema, swelling or warmth along the wound edges. ) Palpation: soft, no guarding and tender in the LLQ Auscultation: normal bowel sounds Objective Objective Clinical Data: Abnormal lab results 07/24/18 07/24/18 Range/Units 06:15 06:15 WBC 11.34 H (4.4-10.8) k/cumm RBC 4.00 L (4.50-6.00) m/cumm Hgb 11.9 L (13.5-17.5) g/dL Hct 37.2 L (40.0-50.0) % Absolute Neutrophils 7.77 H (1.2-6.7) k/cumm Absolute Monocytes 1.09 H (0.11-0.7) k/cumm Creatinine 1.60 H (0.70-1.30) mg/dL Glucose 239 H (70-100) mg/dL Calcium 8.3 L (8.5-10.1) mg/dL Vital Signs Temperature 36.6 C 07/24/18 04:00 Temperature Source Tympanic 07/24/18 01:22 Pulse 60 07/24/18 04:00 Pulse Rhythm Regular 07/19/18 08:23 Pulse 60 07/24/18 04:00 Respiratory Rate 17 07/24/18 02:01 Respiratory Effort Non-Labored 07/24/18 04:00 Respiratory Depth Normal 07/24/18 04:00 Respiratory Pattern Normal 07/24/18 04:00 Blood Pressure 128/66 07/24/18 04:00 Blood Pressure Mean 81 07/24/18 04:00 Blood Pressure Position Supine 07/24/18 04:00 Pulse Oximetry 94 L 07/23/18 21:15 Oxygen Delivery Method Room Air 07/24/18 04:00 Oxygen Flow Rate 0 07/24/18 04:00 Pain Level 0 07/23/18 23:55 Intake & Output 07/23/18 07/24/18 07/24/18 18:59 06:59 18:59 Intake Total 560 / 770 210 / 770 Output Total 50 / 700 650 / 700 Balance 510 / 70 -440 / 70 Weight 90 kg Intake: IV 380 / 550 170 / 550 Oral 180 / 220 40 / 220 Output: Urine 650 / 650 Stool 50 / 50 Other: Urine Color Straw Urine Appearance Clear Comment Pang catheter intact and draining clear yellow urine. Small amt of white, thick creamy drainage outside of meatal opening Laboratory Results WBC 11.34 k/cumm (4.4-10.8) H 07/24/18 06:15 RBC 4.00 m/cumm (4.50-6.00) L 07/24/18 06:15 Hgb 11.9 g/dL (13.5-17.5) L 07/24/18 06:15 Hct 37.2 % (40.0-50.0) L 07/24/18 06:15 MCV 93.0 fL (80-95) 07/24/18 06:15 MCH 29.8 pg (27.0-33.0) 07/24/18 06:15 MCHC 32.0 g/dL (32.0-36.0) 07/24/18 06:15 RDW 11.9 % (11.8-14.1) 07/24/18 06:15 Plt Count 230 x1000/uL (130-400) 07/24/18 06:15 MPV 10.5 fL (8.0-11.0) 07/24/18 06:15 Immature Gran % 1.5 07/24/18 06:15 Neutrophils % 68.5 07/24/18 06:15 Lymphocytes % 14.1 07/24/18 06:15 Monocytes % 9.6 07/24/18 06:15 Eosinophils % 5.9 07/24/18 06:15 Basophils % 0.4 07/24/18 06:15 Absolute Neutrophils 7.77 k/cumm (1.2-6.7) H 07/24/18 06:15 Absolute Lymphocytes 1.60 k/cumm (1.2-3.4) 07/24/18 06:15 Absolute Monocytes 1.09 k/cumm (0.11-0.7) H 07/24/18 06:15 Absolute Eosinophils 0.67 k/cumm (0.0-0.7) 07/24/18 06:15 Absolute Basophils 0.05 k/cumm (0.0-0.2) 07/24/18 06:15 Differential Comment Manual differential 07/18/18 07:10 RBC Morphology Normal 07/18/18 07:10 Sodium 138 mmol/L (136-145) 07/24/18 06:15 Potassium 4.0 mmol/L (3.5-5.1) 07/24/18 06:15 Chloride 104 mmol/L (98-107) 07/24/18 06:15 Carbon Dioxide 26.8 mmol/L (21.0-32.0) 07/24/18 06:15 Anion Gap 7.2 mmol/L (3-11) 07/24/18 06:15 BUN 16 mg/dL (7-18) 07/24/18 06:15 Creatinine 1.60 mg/dL (0.70-1.30) H 07/24/18 06:15 Estimated GFR/1.73 m2 41.69 (mL/min/1.73m2) 07/24/18 06:15 Glucose 239 mg/dL (70-100) H 07/24/18 06:15 Lactate 1.9 mmol/l (0.6-1.4) H 07/21/18 09:12 Calcium 8.3 mg/dL (8.5-10.1) L 07/24/18 06:15 Magnesium 2.0 mg/dL (1.8-2.4) 07/24/18 06:15 Total Bilirubin 0.6 mg/dL (0.2-1.0) 07/18/18 07:10 AST 19 U/L (15-37) 07/18/18 07:10 ALT 26 U/L (12-78) 07/18/18 07:10 Alkaline Phosphatase 125 U/L (46-116) H 07/18/18 07:10 Total Protein 6.8 g/dL (6.4-8.2) 07/18/18 07:10 Albumin 3.3 g/dL (3.4-5.0) L 07/18/18 07:10 Lipase 135 U/L (73-393) 07/18/18 07:10 Patient ABO/Rh O Positive 07/19/18 11:40 Antibody Screen Negative 07/19/18 11:40 Documented by User: Marilyn López DO 07/24/18 18:47 Assessment and Plan (1) S/P left hemicolectomy: Current visit: Yes Status: Acute pt can't see to empty the ostomy and signif other doesn't want to. Hope fully nursing will be able to do some teaching tonight. Pt was able to urinate this afternoon. No pain or burning. no cp or sob. no productive cough. leg swelling is down. resumed plavix today and monitor for bleeding. plan for d/c home in am
--- NOTE | 2018-07-24 09:33 | PDOC.CMPRO ---
- If Service Date Differs Date of service: 07/24/18 Time of Service: 09:33 Care Management Progress Note S/O: Cesar was OOB in the chair during the CM visit. He was pleasant and smiling and engaged in the conversation. His brooke has been removed and he successfully voided. Ostomy teaching is to begin today and discharge is anticipated for tomorrow. He expressed some concern about continued services at home and was reassured that home care has been set up for Friday. He was also informed that dressing and ostomy supplies will be provided by [facility]. A:82 year old male admitted with diverticuliti abscess S/P Left hemicolectomy, sigmoid colon resection and end colostomy. P: Ovidio has been transferred to the medical-surgical unit. Discharge is anticipated for tomorrow with home care services through [facility], including dressing changes with wound care and ostomy education and support. Dressing and ostomy supplies will be provided at discharge to last through the weekend.
[2018-07-24] MEDS: CIPROFLOXACIN 400 MG/200 ML BAG 200 MG IVPB ×2 (11:19→21:52)
[2018-07-24] MEDS: Clopidogrel 75 MG TAB PO (11:19)
[2018-07-24] MEDS: Enoxaparin 40 MG/0.4 ML SYR SC (14:38)
--- NOTE | 2018-07-24 18:31 | NUR.NOTE ---
Nursing Note: At 1430 on 07/24/18, this RN received report from the PALEOLOGY TEACHER. At 1501 on 07/24/18, pt. was transferred from ICU to Med/Surg per MD order. Pt. was settled in to and oriented to his room. VS obtained; VSS. Pt. denied pain at the time of assessment. Head to toe assessment done; see shift assessment for more information. Pt. resting comfortably in bed at this time. RN will reassess as necessary.
[2018-07-24] MEDS: Atorvastatin 40 MG TAB PO (20:10)
[2018-07-24] MEDS: Tamsulosin 0.4 MG CAPCR PO (20:10)
[2018-07-24] MEDS: Pantoprazole 40 MG VIAL IVP (20:10)
[2018-07-24] MEDS: Lisinopril 20 MG TAB PO (20:10)
[2018-07-25] MEDS: MetroNIDAZOLE 500 MG/100 ML BAG 100 MG IVPB ×3 (04:21→20:17)
[2018-07-25 04:26] VITALS: BP 139/80; PULSE 66; RESP 20; TEMP 36.1; O2SAT 96
[2018-07-25 07:20] LABS: HCT 36.2 % (40.0-50.0); HGB 11.9 g/dL (13.5-17.5); Mean Corp. HGB Concentration 32.9 g/dL (32.0-36.0); Mean Corpuscular Hemoglobin 30.4 pg (27.0-33.0); Mean Corpuscular Volume 92.6 fL (80-95); Mean Platelet Volume 10.3 fL (8.0-11.0); Platelet Count 235 x1000/uL (130-400); RBC 3.91 m/cumm (4.50-6.00); RBC Distribution Width 11.9 % (11.8-14.1)
[2018-07-25 07:43] VITALS: BP 113/69; PULSE 80; RESP 20; TEMP 36.1; O2SAT 94
[2018-07-25 08:14] LABS: Absolute Eosinophil Count 0.38 k/cumm (0.0-0.7); Absolute Lymphocyte Count 2.38 k/cumm (1.2-3.4); Absolute Monocyte Count 1.13 k/cumm (0.11-0.7); Absolute Neutrophil Count 8.63 k/cumm (1.2-6.7); Atypical Lymphocytes % 7
[2018-07-25 08:15] LABS: Diff Comment Manual Differential; RBC Morphology Normal
[2018-07-25] MEDS: Clopidogrel 75 MG TAB PO (09:02)
[2018-07-25] MEDS: Insulin Aspart 300 UNITS/3 ML PEN SC ×3 (09:02→16:57)
[2018-07-25] MEDS: amLODIPine 10 MG TAB PO (09:02)
[2018-07-25] MEDS: Aspirin 81 MG CHEW PO (09:02)
[2018-07-25] MEDS: CIPROFLOXACIN 400 MG/200 ML BAG 200 MG IVPB ×2 (11:23→21:54)
[2018-07-25] MEDS: Normal Saline Flush 10 ML SYR IVP ×3 (11:23→21:54)
--- NOTE | 2018-07-25 11:48 | W.PM.PROGNOT ---
Date of Service Date of service: 07/25/18 Time of Service: 11:48 Assessment and Plan (1) S/P left hemicolectomy: Current visit: Yes Status: Acute pod#5 s/p sigmoid resection for diverticulitis perf and diverting ostomy. RN's are doing ostomy teaching today. wound looks good- no infections cont supportive care and d/c home in am Subjective Interval history since last seen: Pt is doing well. no headaches. No CP or SOB. no productive cough. no dysuria. no leg pain or swelling. pt does not want to have to deal w/ ostomy bag nor does his signif other. Pt was under the understanding that home health was going to do everything and he didn't have to touch it. Pt won't empty to- says he cant see it. signif other doesn't want to either. Rn's worked him instruction and how to take care of it at home. Pt is not able to take care of this yet and will hold d/c until Friday Exam Const General: cooperative, healthy appearing, comfortable, no acute distress, well developed and well groomed Nutritional Appearance: average body habitus and well nourished Orientation: alert, awake and oriented x3 HENMT Head: normal to inspection, normocephalic and atraumatic Ears: hearing grossly normal bilaterally and external ears normal General nose exam: external nose normal Face and sinus: normal facial exam and sinuses nontender Mouth: oral mucosae normal, lip normal, tongue normal and moist mucous membranes Teeth and gingiva: dentition normal Eyes General: appearance normal, both eyes and all related structures Conjunctivae: conjunctivae normal Sclera: sclerae normal Pupils: PERRL Neck Neck: normal visual inspection and full ROM Chest Chest: normal inspection of the chest Resp Effort & Inspection: normal respiratory effort, able to speak in complete sentences, no cough, no nasal flaring, not tachypneic and no use of accessory muscles Auscultation: clear to auscultation bilaterally, no rales, no rhonchi and no wheezes Cardio Jugular venous pressure: no JVD Rate: regular rate Rhythm: regular rhythm GI Inspection: normal to inspection, no edema and non-distended Palpation: soft, no masses, nontender and No ascites Auscultation: normal bowel sounds Other: incision was left open. no slough. maybe 5% granulation tissue. wound is clean. no contamination from ostomy. ostomy pink healthy and patent and productive. surrounding skin is intact Skin General skin exam: no rashes or lesions noted Trauma: no lacerations or abrasions Neuro General: alert, oriented x3, oriented, gait normal, moves all extremities, no focal motor deficits and CN's II-XI intact bilaterally Cognition: normal cognition Speech: speech normal Gait: normal gait Motor: muscle tone normal throughout Extrem General: normal to inspection, full ROM and no clubbing, cyanosis or edema Psych Appearance: grossly normal and well kempt Mental Status: mental status grossly normal Speech and Movement: speech and movement normal Affect: normal affect Objective Objective Clinical Data: Abnormal lab results 07/25/18 Range/Units 06:30 WBC 12.50 H (4.4-10.8) k/cumm RBC 3.91 L (4.50-6.00) m/cumm Hgb 11.9 L (13.5-17.5) g/dL Hct 36.2 L (40.0-50.0) % Absolute Neutrophils 8.63 H (1.2-6.7) k/cumm Absolute Monocytes 1.13 H (0.11-0.7) k/cumm Vital Signs Temperature 36.1 C L 07/25/18 07:43 Temperature Source Tympanic 07/25/18 07:43 Pulse 80 07/25/18 07:43 Pulse Rhythm Regular 07/24/18 20:15 Pulse 70 07/24/18 15:08 Respiratory Rate 20 07/25/18 07:43 Respiratory Effort Non-Labored 07/24/18 20:15 Respiratory Depth Normal 07/24/18 20:15 Respiratory Pattern Normal 07/24/18 20:15 Blood Pressure 113/69 07/25/18 07:43 Blood Pressure Mean 82 07/24/18 11:52 Blood Pressure Position Supine 07/24/18 04:00 Pulse Oximetry 94 L 07/25/18 07:43 Oxygen Delivery Method Room Air 07/25/18 07:43 Oxygen Flow Rate 0 07/25/18 07:43 Pain Level 0 07/24/18 15:15 Intake & Output 07/24/18 07/24/18 07/25/18 11:59 23:59 11:59 Intake Total 410 / 2010 1600 / 2010 580 / 580 Output Total 650 / 1700 1050 / 1700 200 / 200 Balance -240 / 310 550 / 310 380 / 380 Weight 90 kg 88.5 kg Intake: IV 160 / 560 400 / 560 330 / 330 Oral 250 / 1450 1200 / 1450 250 / 250 Output: Urine 650 / 1700 1050 / 1700 Stool 200 / 200 Other: Urine Color Straw Yellow Straw Urine Appearance Clear Clear Urine Odor None Comment Pt has not voided since brooke out Void x1 in the toilet. Hat not in the toilet; RN unsure of urine output amount; hat placed in the toilet for next void. Voiding Methods Toilet Laboratory Results WBC 12.50 k/cumm (4.4-10.8) H 07/25/18 06:30 RBC 3.91 m/cumm (4.50-6.00) L 07/25/18 06:30 Hgb 11.9 g/dL (13.5-17.5) L 07/25/18 06:30 Hct 36.2 % (40.0-50.0) L 07/25/18 06:30 MCV 92.6 fL (80-95) 07/25/18 06:30 MCH 30.4 pg (27.0-33.0) 07/25/18 06:30 MCHC 32.9 g/dL (32.0-36.0) 07/25/18 06:30 RDW 11.9 % (11.8-14.1) 07/25/18 06:30 Plt Count 235 x1000/uL (130-400) 07/25/18 06:30 MPV 10.3 fL (8.0-11.0) 07/25/18 06:30 Immature Gran % See Differential 07/25/18 06:30 Neutrophils % 69.0 07/25/18 06:30 Lymphocytes % 12.0 07/25/18 06:30 Atypical Lymphs % 7 07/25/18 06:30 Monocytes % 9.0 07/25/18 06:30 Eosinophils % 3.0 07/25/18 06:30 Basophils % 0.0 07/25/18 06:30 Absolute Neutrophils 8.63 k/cumm (1.2-6.7) H 07/25/18 06:30 Absolute Lymphocytes 2.38 k/cumm (1.2-3.4) 07/25/18 06:30 Absolute Monocytes 1.13 k/cumm (0.11-0.7) H 07/25/18 06:30 Absolute Eosinophils 0.38 k/cumm (0.0-0.7) 07/25/18 06:30 Absolute Basophils 0.00 k/cumm (0.0-0.2) 07/25/18 06:30 Differential Comment Manual differential 07/25/18 06:30 RBC Morphology Normal 07/25/18 06:30 Sodium 138 mmol/L (136-145) 07/24/18 06:15 Potassium 4.0 mmol/L (3.5-5.1) 07/24/18 06:15 Chloride 104 mmol/L (98-107) 07/24/18 06:15 Carbon Dioxide 26.8 mmol/L (21.0-32.0) 07/24/18 06:15 Anion Gap 7.2 mmol/L (3-11) 07/24/18 06:15 BUN 16 mg/dL (7-18) 07/24/18 06:15 Creatinine 1.60 mg/dL (0.70-1.30) H 07/24/18 06:15 Estimated GFR/1.73 m2 41.69 (mL/min/1.73m2) 07/24/18 06:15 Glucose 239 mg/dL (70-100) H 07/24/18 06:15 Lactate 1.9 mmol/l (0.6-1.4) H 07/21/18 09:12 Calcium 8.3 mg/dL (8.5-10.1) L 07/24/18 06:15 Magnesium 2.0 mg/dL (1.8-2.4) 07/24/18 06:15 Total Bilirubin 0.6 mg/dL (0.2-1.0) 07/18/18 07:10 AST 19 U/L (15-37) 07/18/18 07:10 ALT 26 U/L (12-78) 07/18/18 07:10 Alkaline Phosphatase 125 U/L (46-116) H 07/18/18 07:10 Total Protein 6.8 g/dL (6.4-8.2) 07/18/18 07:10 Albumin 3.3 g/dL (3.4-5.0) L 07/18/18 07:10 Lipase 135 U/L (73-393) 07/18/18 07:10 Patient ABO/Rh O Positive 07/19/18 11:40 Antibody Screen Negative 07/19/18 11:40
[2018-07-25 11:50] VITALS: BP 130/76; PULSE 84; RESP 20; TEMP 36.9; O2SAT 95
[2018-07-25] MEDS: Metoprolol 25 MG TAB PO ×2 (13:00→23:50)
--- NOTE | 2018-07-25 14:17 | PDOC.CMPRO ---
- If Service Date Differs Date of service: 07/25/18 Time of Service: 14:17 Care Management Progress Note S/O: Ovidio's SO is present ongoing education related to ostomy care he will not be discharged today. Ovidio does not want to go to a SNF he wants to be able to return home from here with home health services. He will remain inpatient today ongoing teaching and continued antibiotics. Anticipate discharge on Friday CM will update home health and request a Friday admission. CM contacted Patient accounts and requested review for financial assistance. A:82 year old male admitted with diverticuliti abscess S/P Left hemicolectomy, sigmoid colon resection and end colostomy. P: Ovidio has been transferred to the medical-surgical unit. Discharge is anticipated for Friday with home care services through [facility], including dressing changes with wound care and ostomy education and support. Dressing and ostomy supplies will be provided at discharge to last through the weekend.
--- NOTE | 2018-07-25 14:20 | CMPROGNOTE_ITS ---
- If Service Date Differs Date of service: 07/25/18 Time of Service: 14:17 Care Management Progress Note S/O: Ovidio's SO is present ongoing education related to ostomy care he will not be discharged today. Ovidio does not want to go to a SNF he wants to be able to return home from here with home health services. He will remain inpatient today ongoing teaching and continued antibiotics. Anticipate discharge on Friday CM will update home health and request a Friday admission. CM contacted Patient accounts and requested review for financial assistance. A:82 year old male admitted with diverticuliti abscess S/P Left hemicolectomy, sigmoid colon resection and end colostomy. P: Ovidio has been transferred to the medical-surgical unit. Discharge is anticipated for Friday with home care services through [facility], including dressing changes with wound care and ostomy education and support. Dressing and ostomy supplies will be provided at discharge to last through the weekend.
[2018-07-25] MEDS: Enoxaparin 40 MG/0.4 ML SYR SC (14:23)
[2018-07-25 16:25] VITALS: BP 124/69; PULSE 74; RESP 19; TEMP 37; O2SAT 97
[2018-07-25 20:19] VITALS: BP 140/77; PULSE 70; RESP 18; TEMP 37; O2SAT 95
[2018-07-25] MEDS: Pantoprazole 40 MG VIAL IVP (20:19)
[2018-07-25] MEDS: Sennosides/Docusate Sodium TAB 1 TAB PO (20:19)
[2018-07-25] MEDS: Atorvastatin 40 MG TAB PO (20:19)
[2018-07-25] MEDS: Tamsulosin 0.4 MG CAPCR PO (20:19)
[2018-07-25] MEDS: Lisinopril 20 MG TAB PO (20:19)
[2018-07-25 23:26] VITALS: BP 142/82; PULSE 80; RESP 17; TEMP 37; O2SAT 94
[2018-07-26] MEDS: Normal Saline Flush 10 ML SYR IVP ×2 (04:11→10:46)
[2018-07-26] MEDS: MetroNIDAZOLE 500 MG/100 ML BAG 100 MG IVPB (04:11)
[2018-07-26 07:15] VITALS: BP 135/81; PULSE 69; RESP 18; TEMP 36.3; O2SAT 96
[2018-07-26] MEDS: Insulin Aspart 300 UNITS/3 ML PEN SC ×2 (08:00→12:44)
[2018-07-26] MEDS: amLODIPine 10 MG TAB PO (08:01)
[2018-07-26] MEDS: Sennosides/Docusate Sodium TAB 1 TAB PO (08:01)
[2018-07-26] MEDS: Clopidogrel 75 MG TAB PO (08:01)
[2018-07-26] MEDS: Aspirin 81 MG CHEW PO (08:01)
[2018-07-26] MEDS: CIPROFLOXACIN 400 MG/200 ML BAG 200 MG IVPB (10:45)
--- NOTE | 2018-07-26 11:06 | PDOC.CMDIS ---
- If Service Date Differs Date of service: 07/26/18 Time of Service: 11:06 LACE Index Scoring Tool - Questions: Length of Stay (in days): 7 - 13 Acuity (Admit via E.D.?): Yes Comorbidities: Diabetes w/o Complication E.D. Visits: 4 - Answers: Total Score: 13 Risk of Readmission: High Risk Care Management Discharge Reason for Hospitalization: Diverticular Abscess Discharge Plan: Ovidio feels ready for discharge he and his SO have received ongoing teaching over the last 48 hours and he feels ready to manage. He is ambulating in the halls today and makes good eye contact. He is requesting lobster with a smile. CM notified home health of discharge and request a Friday admission to service. CM requested patient be sent home with enough supplies to last until home health arrives. Ovidio will follow up with almas bill for assistance with financial assistance. His SO will transport him home at time of discharge. Patient/Family Education Needs: Dictation, limitations, follow-up plan of care, asked me 3 and self-management Services Needed at Discharge: Home Health Care Services
--- NOTE | 2018-07-26 11:41 | W.PM.DS.N ---
Date of service: 07/26/18 Time of Service: 11:42 DS: Diagnosis Discharge Diagnosis (1) S/P left hemicolectomy: Status: Acute Discharge Plan Disposition Patient Disposition: HOME W/HOME HEALTH SERVICE Condition: Good Discharge Details Reason For Visit: DIVERTICULAR ABSCESS Admit Date/Time: 07/18/18 10:40 Admit Provider: Precious Quijano Attending Provider: Precious Quijano Primary Care Provider: Rolando Moise [facility] Hospital Course: pt was admitted for w/ acute diverticulitis and abscess. Pt was suppose to go for IR drainage, But b/c septic and unstable and ended up going to the OR for colostomy and sigmoid resection. The wound was left open. Pt did well postOp and had no complications. At this tpoint he is tolerating a regular diet. he is ambulatory. He is able to care for his ostomy. home care has been consulted for wound care and osotmy care. cert and Rx sent for supplies. pt was restarted on plavix and has had no bleeding. will F/u in clinic this week. Home Meds and New Rx's Prescriptions: New hydrocodone-acetaminophen 5-325 mg Tablet 1 tab PO Q6H PRN PRNQty: 20 RF: 0 sennosides-docusate sodium [Senna Plus] 8.6-50 mg Tablet 1 tab PO BID Qty: 60 RF: 13 DuoDERM Hydroactive Paste 30 g topical BID Qty: 12 RF: 13 Continued tamsulosin 0.4 MG capsule 0.4 mg PO DAILY Qty: 90 RF: 4 metformin 500 MG tablet 500 mg PO BID RF: 0 ibuprofen 200 MG capsule 600 - 800 mg PO PRN PRNRF: 0 aspirin [Aspir-Low] 81 MG tablet,delayed release (DR/EC) 81 mg PO DAILY RF: 0 clopidogrel [Plavix] 75 MG tablet 75 mg PO DAILY RF: 0 metoprolol tartrate 100 MG tablet 100 mg PO DAILY RF: 0 lisinopril 20 MG tablet 20 mg PO DAILY RF: 0 atorvastatin [Lipitor] 40 MG tablet 40 mg PO DAILY RF: 0 hydrocortisone 60 ML lotion 60 ml Topical BID 14 Days Qty: 1 RF: 0 Discharge Instructions Instructions: Colostomy Care (GEN), Colostomy Creation (GEN), Colostomy Irrigation (GEN) Additional Instructions: Keep an ice bag on the incision. 20 minutes on and 20 minutes off. Ice keeps the swelling down and swelling causes pain. Make sure you wrap the ice pack in a towel and don't apply directly to the skin. -No driving x1 week or of you are taking pain medications. -Follow-up with Dr. matias in 1 week. you will need to call on friday for appt -pain meds are very constipating: if you do not move your bowels daily take a dose of OTC milk of magnesia -It is ok to shower. cover wound to shower -Protein supplements daily. You may find that your appetite is smaller. Eat 3-6 small meals throughout the day. It is important to drink lots of water after surgery, 6-10 glasses a day. -If you were given an incentive spirometry continue to do this 10x/hour while awake. -We do want you up walking, at least 5-6 times per day. This is very important to prevent pneumonia and blood clots. You can climb stairs, take them slowly. -No lifting over 5 pounds. This is very important to avoid developing a hernia in your incision. -You may find that you are very tired after surgery- this is normal. -please do not smoke for a minimum of 72 hours after surgery. Care Plan Goals: Patient will have new home health services for wound care and ostomy care. Wound care orders will be needed with specific instructions. Stand Alone Forms: Nursing Discharge Form Referrals: Precious Quijano MD [ [facility] STAFF PHYSICIAN] - (The office will call you on friday to schedule a follow up appointment for within a week of your discharge. Please call [facility] on friday if you have not received a call) Activity:: no driving x1 wk Equipment/Supplies:: No Equipment Needed Diet:: soft diet Discharge Orders Discharge Orders: Discharge Order (Routine); Ordered 07/26/18 Ordered By: Marilyn López Discharge Data Discharge Date/Time-TO BE ENTERED AT DEPARTURE: 07/26/18 13:35 DS: Summary Status at Discharge Cognitive/behavioral status at discharge: intact Functional status at discharge: uses cane/walker Overall status at discharge: patient is progressing back to baseline Time Spent with Patient Greater than 30 minutes Quality: AMI Clinical Trial Participant: No Exam Const General: cooperative, healthy appearing, comfortable, no acute distress, well developed and well groomed Nutritional Appearance: average body habitus and well nourished Orientation: alert, awake and oriented x3 [facility] Head: normal to inspection, normocephalic and atraumatic Ears: hearing grossly normal bilaterally and external ears normal General nose exam: external nose normal Face and sinus: normal facial exam and sinuses nontender Mouth: oral mucosae normal, lip normal, tongue normal and moist mucous membranes Teeth and gingiva: dentition normal Eyes General: appearance normal, both eyes and all related structures Conjunctivae: conjunctivae normal Sclera: sclerae normal Pupils: PERRL Neck Neck: normal visual inspection and full ROM Chest Chest: normal inspection of the chest Resp Effort & Inspection: normal respiratory effort, able to speak in complete sentences, no cough, no nasal flaring, not tachypneic and no use of accessory muscles Auscultation: clear to auscultation bilaterally, no rales, no rhonchi and no wheezes Cardio Jugular venous pressure: no JVD Rate: regular rate Rhythm: regular rhythm GI Inspection: normal to inspection, no edema, non-distended and incision (clean. no slough or necrosis. granulation: ) Palpation: soft, no masses, nontender and No ascites Auscultation: normal bowel sounds Skin General skin exam: no rashes or lesions noted Trauma: no lacerations or abrasions Neuro General: alert, oriented x3, oriented, gait normal, moves all extremities, no focal motor deficits and CN's II-XI intact bilaterally Cognition: normal cognition Speech: speech normal Gait: normal gait Motor: muscle tone normal throughout Extrem General: normal to inspection, full ROM and no clubbing, cyanosis or edema Psych Appearance: grossly normal and well kempt Mental Status: mental status grossly normal Speech and Movement: speech and movement normal Affect: normal affect DS: Data Vitals/I&O Vitals and I&O: Vital Signs Temperature 36.3 C L 07/26/18 07:15 Temperature Source Tympanic 07/26/18 07:15 Pulse 69 07/26/18 07:15 Pulse Rhythm Irregular 07/25/18 23:30 Pulse 70 07/24/18 15:08 Respiratory Rate 18 07/26/18 07:15 Respiratory Effort 07/25/18 23:30 Respiratory Depth Normal 07/25/18 23:30 Respiratory Pattern Normal 07/25/18 23:30 Blood Pressure 135/81 07/26/18 07:15 Blood Pressure Mean 82 07/24/18 11:52 Blood Pressure Position Supine 07/24/18 04:00 Pulse Oximetry 96 07/26/18 07:15 Oxygen Delivery Method Room Air 07/26/18 07:15 Oxygen Flow Rate 0 07/26/18 07:15 Pain Level 0 07/24/18 15:15 Intake & Output 07/25/18 07/25/18 07/26/18 11:59 23:59 11:59 Intake Total 820 / 1920 1100 / 1920 340 / 340 Output Total 200 / 1450 1250 / 1450 850 / 850 Balance 620 / 470 -150 / 470 -510 / -510 Weight 88.5 kg 88.2 kg Intake: IV 330 / 950 620 / 950 100 / 100 Oral 490 / 970 480 / 970 240 / 240 Output: Urine 700 / 700 600 / 600 Stool 200 / 750 550 / 750 250 / 250 Other: Urine Color Yellow Light Carmela [place] Urine Appearance Clear Clear Urine Odor Normal Normal Voiding Methods Toilet Toilet Labs on day of discharge: Preliminary micro results at discharge 07/19/18 13:30 Anaerobic Culture - Preliminary Peritoneal Anaerobic Gram Positive Cocci [facility] Medical History Renal insufficiency (Chronic) Diverticulitis of large intestine with abscess (Acute) Phimosis (Acute) Diabetes mellitus (Chronic) HTN (hypertension) (Chronic) Hypercholesterolemia (Chronic) Myocardial infarct (Chronic) Surgical History S/P left hemicolectomy (Acute ~07/19/18) H/O phimosis (Acute) History of endovascular stent graft for abdominal aortic aneurysm (AAA) (Chronic) History of heart artery stent (Chronic) S/P hernia repair (Inactive) Social History Smoking/Tobacco Use Status: Former Tobacco Use Quit Date: 01/03/17 Tobacco: How many years used: 60 Alcohol Intake: current Alcohol Intake frequency: 0-2 drinks per day Alcohol type: beer Drug use: Never Substance use type: does not use Do you feel safe at home: Yes Do you feel safe in your relationship?: Yes
[2018-07-26 11:50] VITALS: BP 124/72; PULSE 92; RESP 18; TEMP 36.4; O2SAT 97
[2018-07-26] MEDS: Bacitracin 1 PACKET (12:35)
--- NOTE | 2018-07-26 12:35 | PDOC.HHF2F ---
1. Encounter Date and Reason I certify that CALI PUGA was seen by Marilyn López on 07/26/18 and that I had a [id number]-[id number] encounter with this patient that meets the physician face to face encounter requirements. 2. Clinical Findings Supporting Skilled Need and Homebound Status I certify that home health services are medically necessary, include either intermittent jail and/or physical/speech therapy, and that this patient is homebound in that absences from the home require considerable and taxing effort and are infrequent or of short duration, or are attributable to the need to receive medical care. [X] (a) Attached documentation from encounter provides clinical findings supporting skilled need and homebound status (including what assistance patient requires to leave the home). The encounter with the patient was in whole, or in part, for the following medical condition, which is the primary reason for home health care: DIVERTICULAR ABSCESS Group Home:daily dressing changes Physical Therapy: Speech Therapy: Homebound: 3. Certification and Authentication I certify that I composed the above information based on my clinical judgement relating to this patient's medical condition and, if applicable, clinical findings communicated to me by the NPP or inpatient physician who performed the Home Health Referral. All further orders will be obtained through (Community Based Physician - PCP)
[2018-07-26] MEDS: Metoprolol 25 MG TAB PO (12:44)
== END 2018-07-26 13:35 | disposition home health service (06) | DRG 329 ==
LOC: ER 11:03 → MS 11:55 → ICU 07-19 16:26 → MS 07-21 06:35 → ICU 07-21 06:37 → MS 07-24 14:44
PROVIDERS: Emergency Medicine; Internal Medicine; Surgery; Admitting Provider Surgery; Emergency Provider Student in an Organized Health Care Education/Training Program; PCP Family Medicine; Visit Provider Surgery
PROC: 0DTN0ZZ Resection of Sigmoid Colon, Open Approach (ICD-10-PCS; CPT 49000; principal; 2018-07-19 11:50)
PROC: 0DTN0ZZ Resection of Sigmoid Colon, Open Approach (ICD-10-PCS; CPT 44143; 2018-07-19 11:50)
DX: K57.20 Diverticulitis of large intestine with perforation and abscess without bleeding (principal); K65.8 Other peritonitis; N17.9 Acute kidney failure, unspecified; B96.20 Unspecified Escherichia coli [E. coli] as the cause of diseases classified elsewhere; Z90.49 Acquired absence of other specified parts of digestive tract; E11.22 Type 2 diabetes mellitus with diabetic chronic kidney disease; N18.2 Chronic kidney disease, stage 2 (mild); I12.9 Hypertensive chronic kidney disease with stage 1 through stage 4 chronic kidney disease, or unspecified chronic kidney disease; E78.00 Pure hypercholesterolemia, unspecified; Z79.02 Long term (current) use of antithrombotics/antiplatelets; Z79.84 Long term (current) use of oral hypoglycemic drugs; I95.9 Hypotension, unspecified; I25.10 Atherosclerotic heart disease of native coronary artery without angina pectoris; N40.0 Benign prostatic hyperplasia without lower urinary tract symptoms; Z95.5 Presence of coronary angioplasty implant and graft; E83.42 Hypomagnesemia; Z46.89 Encounter for fitting and adjustment of other specified devices
CPT/HCPCS: 44143; 36558; 36415; 36591; 71045; 80048; 80053; 83690; 86850; 86900; 86901; 87077; 88305; 96361; 96365; 96368; 99223; 99232; 99233; 99239; 99253; 99285; J1650; NC; 74022; 74177; 83605; 83735; 85025; 87070; 87075; 87186; 87205; 88307; 99222; 99284; J0131; J0744; J1100; J1885; J1941; J2405; J3010; J3475; J3480; J3490

== ENCOUNTER → 2018-08-04 13:39 | Outpatient (BNVA) | payer MEDICARE, SELFPAY | PROVIDERS: PCP Family Medicine; Referring Provider Family Medicine; Visit Provider Surgery | DX: Z48.815 Encounter for surgical aftercare following surgery on the digestive system (principal); Z90.49 Acquired absence of other specified parts of digestive tract; I10 Essential (primary) hypertension; E11.9 Type 2 diabetes mellitus without complications ==

== ENCOUNTER → 2018-08-17 11:11 | Outpatient (BNVA) | payer MEDICARE, SELFPAY | PROVIDERS: PCP Family Medicine; Referring Provider Family Medicine; Visit Provider Physical Therapy Assistant | DX: Z48.815 Encounter for surgical aftercare following surgery on the digestive system (principal); Z93.3 Colostomy status ==

== ENCOUNTER → 2018-08-21 13:48 | Outpatient (BNVA) | payer MEDICARE, SELFPAY | PROVIDERS: PCP Family Medicine; Referring Provider Family Medicine; Visit Provider Physical Therapy Assistant | DX: R69 Illness, unspecified (principal) ==

== ENCOUNTER → 2018-09-04 11:23 | Outpatient (BNVA) | payer MEDICARE, SELFPAY | PROVIDERS: PCP Family Medicine; Referring Provider Family Medicine; Visit Provider Physical Therapy Assistant | DX: Z48.815 Encounter for surgical aftercare following surgery on the digestive system (principal); K57.20 Diverticulitis of large intestine with perforation and abscess without bleeding | CPT/HCPCS: 99211 ==

== ENCOUNTER 2019-07-27 09:34 | Outpatient (REF) | payer MEDICARE, SELFPAY ==
[2019-07-27 19:38] LABS: Iron 76 ug/dL (65-175); Total Iron Binding Capacity 262 ug/dL (250-450); Transferrin Sat 29 % (20-55)
[2019-07-27 19:45] LABS: HCT 43.3 % (40.0-50.0); HGB 14.5 g/dL (13.5-17.5); Mean Corp. HGB Concentration 33.5 g/dL (32.0-36.0); Mean Corpuscular Hemoglobin 31.2 pg (27.0-33.0); Mean Corpuscular Volume 93.1 fL (80-95); Platelet Count 205 x1000/uL (130-400); RBC 4.65 m/cumm (4.50-6.00); RBC Distribution Width 11.9 % (11.8-14.1); White Blood Cell Count 8.87 k/cumm (4.4-10.8)
[2019-07-27 20:09] LABS: ALT 45 U/L (16-63); AST 34 U/L (15-37); Albumin 3.7 g/dL (3.4-5.0); Alkaline Phosphatase 106 U/L (46-116); Anion Gap 9.7 mmol/L (3-11); BUN 20 mg/dL (7-18); Bilirubin, Total 0.8 mg/dL (0.2-1.0); CO2 28.3 mmol/L (21.0-32.0); CREATININE 1.62 mg/dL (0.70-1.30); Calcium 8.9 mg/dL (8.5-10.1); Chloride 103 mmol/L (98-107); Glucose 180 mg/dL (74-106); Magnesium 1.5 mg/dL (1.8-2.4); Potassium 4.4 mmol/L (3.5-5.1); Sodium 141 mmol/L (136-145); Vitamin B12 267 pg/mL (193-986)
[2019-07-27 20:28] LABS: PHOSPHORUS 2.9 mg/dL (2.6-4.7)
== END 2019-07-27 09:54 ==
LOC: NCHCO 09:34
PROVIDERS: PCP Family Medicine; Visit Provider Family Medicine
DX: D64.9 Anemia, unspecified (principal); N18.3 Chronic kidney disease, stage 3 (moderate); K76.0 Fatty (change of) liver, not elsewhere classified; I25.10 Atherosclerotic heart disease of native coronary artery without angina pectoris
CPT/HCPCS: 80053; 85027; 82607; 83540; 83550; 83735; 84100

== ENCOUNTER 2019-11-09 17:54 | Outpatient (REF) | payer MEDICARE, SELFPAY ==
[2019-11-09 18:31] LABS: Anion Gap 11.4 mmol/L (3-11); BUN 24 mg/dL (7-18); CO2 25.6 mmol/L (21.0-32.0); CREATININE 1.66 mg/dL (0.70-1.30); Calcium 9.4 mg/dL (8.5-10.1); Chloride 103 mmol/L (98-107); Estimated GFR 39.86 (mL/min/1.73m2); Glucose 192 mg/dL (74-106); Magnesium 1.8 mg/dL (1.8-2.4); Potassium 4.3 mmol/L (3.5-5.1); Sodium 140 mmol/L (136-145)
== END 2019-11-09 18:14 ==
LOC: NCHCN 17:54
PROVIDERS: PCP Family Medicine; Visit Provider Family Medicine
DX: I50.9 Heart failure, unspecified (principal); N18.3 Chronic kidney disease, stage 3 (moderate)
CPT/HCPCS: 80048; 83735

== ENCOUNTER 2019-12-02 01:45 | Outpatient (CLI) | payer MEDICARE, SELFPAY ==
--- NOTE | 2019-12-02 10:25 | DI.US_ITS ---
APPROVED REPORT EXAM: Comprehensive 2D, Doppler, and color-flow Echocardiogram Patient Location: Out-Patient Italian Teacher: Marisabel Stroud RDCS (AE) Indications: CAD,STENT, CHF Other Information Study Quality: Fair Conclusion Mild concentric left ventricular hypertrophy. Estimated ejection fraction is 55% Normal right ventricular size and systolic function The left atrium is mildly dilated. The right atrium is normal size Trileaflet sclerotic aortic valve without regurgitation or stenosis There is mitral annular calcification. 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 The left ventricular systolic function is normal. The left ventric ular ejection fraction is within the normal range. Mild concentric left ventricular hypertrophy. Ther e is normal LV segmental wall motion. There is no ventricular septal defect visualized. LVEF is 55%. Right Ventricle The right ventricle is normal size. The right ventricular systolic function is normal. The RVSP is 27 .5 mmHg. Atria Left atrium is mildly dilated. The right atrium size is normal. The interatrial septum is intact with no evidence for an atrial septal defect. Aortic Valve The Aortic valve is sclerotic. There is no aortic valvular stenosis. No aortic regurgitation is prese nt. Mitral Valve Moderate mitral annular calcification. No evidence of mitral valve stenosis. Trace mitral regurgitati on. Tricuspid Valve The tricuspid valve is normal in structure. There is no tricuspid valve stenosis. Trace tricuspid reg urgitation. Pulmonic Valve The pulmonary valve is normal in structure. There is no pulmonic valvular stenosis. There is no pulmo marion valvular regurgitation. Great Vessels The aortic root is normal in size. The ascending aorta is moderately dilated. IVC is normal in size a nd collapses >50% with inspiration. Pericardium There is no pericardial effusion. 2D Dimensions IVSD d PLAX 1.23 cm M: 0.6-1.2 LV Vol A2C d MOD 77.3 mL LVPW d PLAX 1.19 cm M: 0.6 - 1.2 LV Vol A4C d MOD 113.0 mL LVID d PLAX 4.39 cm M: 4.2 - 5.8 LA vol/ BSA A2C s A-L 8.8 mL/m2 LVDs 3.25 cm M: 2.5 - 4.0 LA Area A2C s MOD 9.52 cm2 Ao Root d 3.15 cm M: 3.1 - 3.7 LV EF A4C MOD 45.6 % RA Area A4C 12.82 cm2 LV EF A2C MOD 51.7 % RA Vol/ BSA A4C s A-L 14.7 mL/m2 LV EF Biplane MOD 47.7 % Ao Asc Diam d 3.95 cm M: 2.6 - 3.4 SV 45.93 mL LV EF Teichholz 50.4 % SV Index 22.06 mL/m2 LVEF (Dowd's) 47.74 % M: 52 - 72 LV Volume 71.21 mL M: 62 - 150 LV Volume Index 34.23 mL/m2 M: 34 - 74 LV Vol Biplane MOD 96.2 mL FS 25.40 % M-Mode TAPSE 2.32 cm (M/F) >1.7 LV Diastology MV E' medial 0.068 (>0.07 m/s) E/A Ratio 1.0 LV E/e MED 13.50 (<14) MV E Vmax 0.92 (0.4-1.3 m/s) MV E' lateral 0.065 (>0.1 m/s) MV A Vmax 0.95 (0.4-1.3 m/s) LV E/e LAT 14.30 (<14) MV E/A Ratio 0.94 MV E/E' medial 13.50 MV E/E' lateral 14.32 Aortic Valve LVOT Vmax 0.88 m/s LVOT Mean Bala. 0.50 m/s LVOT Peak Grad 3.1 mmHg LVOT Mean Grad 1.3 mmHg LVOT VTI 0.220 m AoV Vmax 1.36 m/s Velocity Ratio 0.64 AoV Mean Bala. 0.88 m/s AoV Peak Grad 7.4 mmHg AoV Mean Grad 3.7 mmHg AoV VTI 0.309 m Mitral Valve MV DT 261 (160-240 msec) MV PHT 76 msec MV Area PHT 2.91 cm2 Pulmonary Valve PV Vmax 0.80 (0.5-1.5 m/s) RVOT Peak Gr. 1.25 mmHg PV Peak Grad 2.6 mmHg RVOT Mean Gr. 0.70 mmHg PV Mean Grad 1.5 mmHg RVOT VTI 0.103 m PV VTI 0.153 m RVOT Vmax 0.56 m/s Tricuspid Valve TR Peak Grad 24.5 mmHg TR Vmax 2.48 m/s RA Pressure 3.00 mmHg RVSP (TR) 27.5 mmHg
== END 2019-12-02 02:05 ==
PROVIDERS: PCP Family Medicine; Visit Provider Family Medicine
DX: I25.10 Atherosclerotic heart disease of native coronary artery without angina pectoris (principal); Z95.5 Presence of coronary angioplasty implant and graft; I50.9 Heart failure, unspecified; I77.810 Thoracic aortic ectasia
CPT/HCPCS: 93016; 93018; 93306

== ENCOUNTER → 2020-01-28 08:58 | Outpatient (BNVA) | payer MEDICARE, SELFPAY | PROVIDERS: PCP Family Medicine; Referring Provider Family Medicine; Visit Provider Surgery | DX: E11.22 Type 2 diabetes mellitus with diabetic chronic kidney disease (principal); N18.3 Chronic kidney disease, stage 3 (moderate); Z93.3 Colostomy status; Z11.59 Encounter for screening for other viral diseases | CPT/HCPCS: 99213 ==

== ENCOUNTER 2020-02-25 02:19 | Outpatient (CLI) | payer MEDICARE, SELFPAY ==
[2020-02-26 12:44] LABS: COVID-19 RT-PCR Result NEGATIVE (Negative)
== END 2020-02-25 02:39 ==
PROVIDERS: PCP Family Medicine; Visit Provider Surgery
DX: Z11.59 Encounter for screening for other viral diseases (principal); Z01.818 Encounter for other preprocedural examination
CPT/HCPCS: U0003

== ENCOUNTER 2020-02-25 02:27 | Outpatient (CLI) | payer MEDICARE, SELFPAY ==
[2020-02-25 09:54] LABS: Anion Gap 6.8 mmol/L (3-11); BUN 26 mg/dL (7-18); CO2 27.2 mmol/L (21.0-32.0); CREATININE 1.82 mg/dL (0.70-1.30); Calcium 9.4 mg/dL (8.5-10.1); Chloride 104 mmol/L (98-107); Estimated GFR 35.76 (mL/min/1.73m2); Glucose 173 mg/dL (74-106); Magnesium 1.6 mg/dL (1.8-2.4); Potassium 4.4 mmol/L (3.5-5.1); Sodium 138 mmol/L (136-145)
== END 2020-02-25 02:47 ==
PROVIDERS: PCP Family Medicine; Visit Provider Family Medicine
DX: Z01.818 Encounter for other preprocedural examination (principal); Z11.59 Encounter for screening for other viral diseases
CPT/HCPCS: 36415; 80048; U0003; 83735

== ENCOUNTER 2020-03-01 06:00 | Inpatient (IN) | payer MEDICARE, SELFPAY ==
[2020-03-01] VITALS (96 sets, daily range): BP systolic 72–143; BP diastolic 35–68; PULSE 44–55; RESP 11–22; TEMP 35.8–36.6; O2SAT 95–100
--- NOTE | 2020-03-01 06:42 | ROE_ITS ---
Date of service: 03/01/20 Operative Note Operative Note DATE OF PROCEDURE: 03/01/20 PRE-OP DIAGNOSIS: Colostomy POST-OP DIAGNOSIS: same PROCEDURE: Colostomy takedown and anastamosis SURGEON: Precious Quijano ASSISTING SURGEON: Marilyn López INSTRUCTIONAL COORDINATOR: Sandra Childers ANESTHESIA: GETA and epidural PATHOLOGY: none sent COMPLICATIONS: None Patient was transported to: PACU Patient's condition: stable Indications: Mr. Thompson is back to see me today to discuss reversal of his Colobstomy. He underwent an emergency laparotomy with sigmoid resection and end colostomy for diverticulitis with abscess and acute abdomen. He has done well since surgery. He has an extensive history of cardiac disease, but he has had no new symptoms since July 2018. He denies chest pain, SOB or claudication. We discussed the anatomy and the surgery itself. We went over the ERAS protocol in detail. Benefits, complications were reviewed with the patient. Questions were answered to his satisfaction. No guarantees were given or implied. Findings: minimal adhesions Procedure Description: After informed consent was obtained in same-day surgery the patient was taken to the operating room and placed in a sitting position on the operating room table. Anesthesia then proceeded to do an epidural. Once the epidural was in place the patient was placed in a supine position on the operating room table. Monitors were applied and the patient was then placed under general anesthesia and intubated without difficulty. Next a Pang catheter was placed by nursing staff in a standard sterile fashion. The patient was then placed in stirrups making sure that there was not too much tension on his thighs or knees. The ostomy was then closed with 2-0 Prolene interrupted sutures to minimize any spill of stool. The abdomen was then prepped and draped in a sterile surgical fashion. At this point a timeout was done. The patient's name, date of , procedure to be done, allergies to medications, DVT prophylaxis, preop antibiotic, were all reviewed. Fire risk was assessed. 1% lidocaine was injected into the dermis from just above the umbilicus down to the pubic symphysis. The old scar was reopened with a 10 blade. Dissection was done with cautery through the subcutaneous tissue down to the fascia. The fascia was carefully opened the peritoneum was identified and grasped with hemostats. The peritoneum was opened sharply. I was then able to place my finger underneath the peritoneum no adhesions were palpated and the length of the incision was then opened with cautery. Minimal adhesions were identified at this time. Next an incision was made around the ostomy with a 10 blade. Cautery was used to dissect down right next to the bowel to the fascia. Once the bowel was dissected away from the subcutaneous tissue and the fascia it was dunked into the abdomen and a clamp was placed around it to minimize any spill. At this point the Omni retractor was secured to the bed and the abdominal wall was retracted. The small bowel was swept out of the pelvis up into the right and left upper quadrant. A moist towel was placed around the small bowel and it was then gently secured with a malleable retractor on the Omni. The rectal stump was identified by the Prolene suture that had been left in place before. The rectal stump was dissected away from the pelvic wall to mobilize it and make it easier to do a anastomosis. The ostomy was then transected just above the clamp to get fresh tissue. The fat around the bowel was removed using cautery. It was then gently laid down into the pelvis and there was some tension. There was one adhesion noted between the descending colon and the peritoneum and this was removed. This allowed the descending colon to lay in the pelvis without any tension. Next the bowel dilators were placed into the descending colon and the 28 mm dilator fit tightly. The anvil was placed into the descending colon and it was secured with the autosuture device. Next the 28 mm round stapler was placed through the rectum up to the rectal stump. It was deployed and the anvil was attached. The stapler was then tightened and fired. The stapler was removed out of the rectum. Water was then placed into the pelvis and the descending colon was clamped just above the anastomosis. Air was then placed with an anal scope into the rectum to dilate the anastomosis. No air leak was identified. The fluid was suctioned out of the pelvis and the retractors were removed from the abdominal wall. The small bowel was covered with some Interceed. The omentum was placed over the bowel. The old ostomy site fascia was closed with 0 Vicryl running stitch. The abdominal fascia was then closed with 2-0 Vicryl running stitches. The subcutaneous tissue was irrigated and the skin was closed with cyn. The dermis over the old ostomy site was reapproximated with interrupted 2-0 Prolene sutures. Enough space was left between each suture to be able to place iodine soaked 2 x 2's. The skin was cleaned and dried and a dressing was applied to the midline incision as well as over the old ostomy site. Sponge instrument and needle counts were correct prior to closing the fascia and after the fascia was closed. The patient's legs were removed from the stirrups and placed back onto the operating room table. He was then transferred onto a bed and woken up and extubated without difficulty. He was taken to recovery in stable condition. There were no immediate complications.
--- NOTE | 2020-03-01 07:14 | HPE_ITS ---
Date of service: 03/01/20 Assessment and Plan Assessment and plan (1) Colostomy status: Status: Acute Assessment and plan: A\\ Mr. Thompson is s/p emergency sigmoid coloectomy with end colostomy in July of 2018. He is here today to discuss reversal. His Cardiac disease has been stable. He is on Plavix and Aspirin. Discussed the surgery and post-op course as well as pre-op ERAS protocol. P\\ Open colostomy takedown with anastamosis ERAS protocol Epidural COVID testing Risks, benefits, complications of the procedure were reviewed with him. Complications include but are not limited to bleeding, injury to bowel, infection, anastomotic leak, wound dehiscence, hernia, heart attack, stroke, , and adverse reaction to the medications. Questions were entertained and answered to his satisfaction and he wished to proceed. No guarantees were given or implied. COVID-19 testing explained to the patient. Reason for test reviewed. Quarantine per state requirements reviewed with patient. Patient understands and agrees to testing. History of Present Illness Narrative: Mr. Thompson is back to see me today to discuss reversal of his Colostomy. He underwent an emergency laparotomy with sigmoid resection and end colostomy for diverticulitis with abscess and acute abdomen. He has done well since surgery. He has an extensive history of cardiac disease, but he has had no new symptoms since July 2018. He denies chest pain, SOB or claudication. We discussed the anatomy and the surgery itself. We went over the ERAS protocol in detail. Patient just let us know yesterday that he has not been taking his plavix for the last 30 days because his Rx ran out. he has not had any increase in chest pain. Review of Systems Constitutional Constitutional: Denies chills, Denies fever(s) and Denies night sweats Cardiovascular Cardiovascular: Denies chest pain, Denies chest pain at rest, Denies chest pain with activity, Denies rapid heart rate, Denies edema, Denies palpitations, Denies dyspnea and Denies dyspnea on exertion Respiratory Respiratory: Denies chest congestion, Denies cough, Denies dyspnea and Denies dyspnea on exertion Gastrointestinal Gastrointestinal: Reports as per HPI Genitourinary Genitourinary: Denies urinary frequency, Denies urinary hesitancy and Denies urinary incontinence Endocrine Endocrine: Reports system reviewed and no additional complaints, except as documented and Denies palpitations Hematologic/Lymphatic Hematologic/Lymphatic: Reports easy bleeding (on plavix) [facility]LY [facility] Medical History AAA (abdominal aortic aneurysm) Anemia 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) CAD (coronary artery disease) CHF (congestive heart failure) Chronic kidney disease, stage 3 Diabetes mellitus Diverticulitis of large intestine with abscess Erectile dysfunction Fatty liver Hearing impairment HTN (hypertension) Hypercholesterolemia Hypomagnesemia Ischemic cardiomyopathy Mass of salivary gland Myocardial infarct Phimosis Phimosis (10/17/15) Renal insufficiency Skin lesion of scalp Type 2 diabetes mellitus Surgical History H/O phimosis s/p repair History of endovascular stent graft for abdominal aortic aneurysm (AAA) History of heart artery stent S/P hernia repair S/P left hemicolectomy (~07/19/18) Social History Smoking/Tobacco Use Status: Former Tobacco Use Quit Date: 01/03/17 Tobacco: How many years used: 60 Smoking risk assessment performed?: Yes Alcohol Intake: current Alcohol Intake frequency: 0-2 drinks per day Alcohol type: beer Drug use: Never Substance use type: does not use Do you feel safe at home: Yes Do you feel safe in your relationship?: Yes Meds Home Medications and Allergies Home Medications Medication Instructions Recorded Confirmed Type metformin 500 mg PO BID 09/02/12 02/29/20 History aspirin [Aspir-Low] 81 mg PO DAILY 09/05/15 02/29/20 History ibuprofen 600 - 800 mg PO PRN PRN 09/05/15 02/29/20 History tamsulosin 0.4 mg PO DAILY #90 tab-cap 10/17/15 02/29/20 History clopidogrel [Plavix] 75 mg PO DAILY 04/12/17 02/29/20 History lisinopril 20 mg PO DAILY 04/12/17 02/29/20 History atorvastatin [Lipitor] 40 mg PO DAILY 09/20/17 02/29/20 History hydrocortisone 60 ml TOPICAL BID 14 Days #1 btl 12/07/17 02/29/20 Rx hydrocolloid dressing [DuoDERM 30 g TOPICAL BID #12 g 07/26/18 02/29/20 Rx Hydroactive] furosemide 20 mg tablet 20 mg PO DAILY 08/04/18 02/29/20 History sitagliptin 100 mg tablet 100 mg PO DAILY 08/04/18 02/29/20 History fluocinolone 0.01 % topical cream 1 applic TOPICAL BID 01/14/20 02/29/20 History magnesium oxide 400 mg PO BID 01/14/20 02/29/20 History metoprolol succinate 200 mg 200 mg PO DAILY 01/14/20 02/29/20 History tablet,extended release 24 hr nitroglycerin 0.4 mg sublingual 0.4 mg SUBLINGUAL ONCE 01/14/20 02/29/20 History tablet sitagliptin 50 mg tablet 50 mg PO DAILY 01/14/20 02/29/20 History tamsulosin 0.4 mg capsule 0.4 mg PO DAILY 01/14/20 02/29/20 History bisacodyl 5 mg tablet,delayed 5 mg PO ONCE #8 tab 01/28/20 02/29/20 Rx release metronidazole 500 mg tablet 2,000 mg PO BID #8 tab 01/28/20 02/29/20 Rx neomycin 500 mg tablet 2 g PO BID #8 tab 01/28/20 02/29/20 Rx polyethylene glycol 3350 17 gram 255 g PO DAILY #15 ea 01/28/20 02/29/20 Rx oral powder packet ondansetron HCl 4 mg tablet 4 mg PO ONCE #14 tab 02/28/20 02/29/20 Rx acetaminophen [Acetaminophen Extra 1,000 mg PO Q8H PRN 02/29/20 02/29/20 History Strength] Allergies Allergy/AdvReac Type Severity Reaction Status Date / Time No Known Allergies Allergy Verified 02/29/20 09:23 Exam Const General: healthy appearing and comfortable Resp Effort & Inspection: normal respiratory effort Auscultation: clear to auscultation bilaterally Cardio Rate: regular rate Rhythm: regular rhythm Heart Sounds: no click, no gallops and no murmurs
[2020-03-01] MEDS: Acetaminophen 500 MG TAB 1000 MG PO (09:11)
[2020-03-01] MEDS: Gabapentin 300 MG CAP 600 MG PO (09:12)
[2020-03-01] MEDS: Celecoxib 200 MG CAP PO (09:12)
[2020-03-01] MEDS: Normal Saline 1,000 ML 80 ML IV ×2 (09:20→14:34)
[2020-03-01 10:02] LABS: Abs Immature Grans 0.04 10^3/uL (0.0-0.06); Absolute Basophil Count 0.04 10^3/uL (0.0-0.2); Absolute Eosinophil Count 0.32 10^3/uL (0.0-0.7); Absolute Lymphocyte Count 1.82 10^3/uL (1.2-3.4); Absolute Monocyte Count 0.98 10^3/uL (0.1-0.8); Absolute Neutrophil Count 6.67 10^3/uL (1.2-6.7); Basophils % 0.4; Eosinophils % 3.2; HCT 43.2 % (40.0-50.0); HGB 14.4 g/dL (13.5-17.5); Immature Grans % 0.4; Lymphocytes % 18.4; MCH 30.8 pg (27.0-33.0); MCHC 33.3 % (32.0-36.0); MCV 92.3 fL (80-95); MPV 10.9 fL (8.0-11.0); Monocytes % 9.9; Neutrophils % 67.7; Nucleated RBC 0 %; Platelet Count 228 10^3/uL (130-400); RBC 4.68 10^6/uL (4.36-5.78); RDW 11.8 % (11.8-14.1); RDW-SD 39.5 fL; WBC 9.87 10^3/uL (4.4-10.8)
[2020-03-01] MEDS: AMPICILLIN/SULBACTAM 3 GM in Normal Saline 100 ML IVPB ×2 (10:24→11:59)
[2020-03-01] MEDS: FentaNYL/ROPIvacaine 2 mcg/ml and 0.1% 200 ML CADD Cassette EP (11:32)
--- NOTE | 2020-03-01 12:10 | APP_PTH ---
PATIENT: Cesar Thompson LOC: U#:[id number] AGE/SX: 84/M ROOM: 212 RE03/01/[address]: Precious Quijano MD : [id number] BED: A DIS: 03/05/2020 SPEC #: [id number] RECD: 03/02/20 11:24 STATUS: SOUT REQ #: [id number] DARY: 03/01/20 12:[address]: Precious Quijano DEPT: Surgical Specimen RECD BY: Dilma Barrios ENTERED: 03/02/20 11:24 SP TYPE: Appendix OTHR DR: Rolando Moise Tissues: 1 - APPENDIX NOT INCIDENTAL Procedures: GROSS AND MICRO LEVEL 3 Comments: [id number]
[2020-03-01] MEDS: ePHEDrine 50 MG/ML VIAL IVP ×3 (13:20→13:48)
[2020-03-01] MEDS: Heparin 5,000 UNITS/ML VIAL 5000 UNITS SC (13:52)
[2020-03-01] MEDS: Pantoprazole 40 MG VIAL IVP (17:31)
[2020-03-01] MEDS: Enoxaparin 40 MG/0.4 ML SYR SC (17:31)
[2020-03-01] MEDS: Normal Saline Flush 10 ML SYR IVP (17:32)
[2020-03-02] VITALS (39 sets, daily range): BP systolic 122–167; BP diastolic 59–129; PULSE 45–68; RESP 11–25; TEMP 36.6; O2SAT 95–98
[2020-03-02] MEDS: Normal Saline 1,000 ML 80 ML IV (04:30)
[2020-03-02] MEDS: FentaNYL/ROPIvacaine 2 mcg/ml and 0.1% 200 ML CADD Cassette EP (05:00)
[2020-03-02 06:17] LABS: Abs Immature Grans 0.04 10^3/uL (0.0-0.06); Absolute Basophil Count 0.03 10^3/uL (0.0-0.2); Absolute Eosinophil Count 0.01 10^3/uL (0.0-0.7); Absolute Monocyte Count 1.15 10^3/uL (0.1-0.8); Basophils % 0.2; Eosinophils % 0.1; HCT 42.4 % (40.0-50.0); Immature Grans % 0.3; Lymphocytes % 10.1; MCH 30.6 pg (27.0-33.0); MCV 92.8 fL (80-95); MPV 10.3 fL (8.0-11.0); Monocytes % 9.1; Neutrophils % 80.2; Nucleated RBC 0 %; Platelet Count 195 10^3/uL (130-400); RBC 4.57 10^6/uL (4.36-5.78); RDW 11.7 % (11.8-14.1); RDW-SD 39.6 fL; WBC 12.62 10^3/uL (4.4-10.8)
[2020-03-02 06:19] LABS: Absolute Lymphocyte Count 1.27 10^3/uL (1.2-3.4); Absolute Neutrophil Count 10.12 10^3/uL (1.2-6.7)
[2020-03-02 06:22] LABS: Anion Gap 8.2 mmol/L (3-11); BUN 25 mg/dL (7-18); CO2 22.8 mmol/L (21.0-32.0); CREATININE 2.32 mg/dL (0.70-1.30); Calcium 8.2 mg/dL (8.5-10.1); Chloride 102 mmol/L (98-107); Estimated GFR 27.02 (mL/min/1.73m2); Glucose 173 mg/dL (74-106); Potassium 3.6 mmol/L (3.5-5.1); Sodium 133 mmol/L (136-145)
[2020-03-02] MEDS: Tamsulosin 0.4 MG CAPCR PO (08:21)
[2020-03-02] MEDS: metFORMIN 500 MG TAB PO ×2 (08:21→18:28)
[2020-03-02] MEDS: Metoprolol CR 50 MG TABCR 200 MG PO (08:21)
[2020-03-02] MEDS: Lisinopril 20 MG TAB PO (08:21)
--- NOTE | 2020-03-02 08:22 | W.PM.PROGNOT ---
Date of Service Date of service: 03/02/20 Time of Service: 08:22 Objective Last Vital Signs Temp 36.6 C 03/02/20 03:00 Pulse 47 L 03/02/20 04:57 Resp 11 L 03/02/20 04:57 BP 137/60 03/02/20 04:57 Pulse Ox 96 03/02/20 04:57 Laboratory Results - last 24 hr 03/01/20 03/01/20 03/02/20 09:20 09:20 06:05 WBC 9.87 RBC 4.68 Hgb 14.4 Hct 43.2 MCV 92.3 MCH 30.8 MCHC 33.3 RDW 11.8 Plt Count 228 MPV 10.9 Immature Gran % 0.4 Neutrophils % 67.7 Lymphocytes % 18.4 Monocytes % 9.9 Eosinophils % 3.2 Basophils % 0.4 Nucleated RBC % 0 Absolute Neutrophils 6.67 Absolute Lymphocytes 1.82 Absolute Monocytes 0.98 H Absolute Eosinophils 0.32 Absolute Basophils 0.04 Sodium 133 L Potassium 3.6 Chloride 102 Carbon Dioxide 22.8 Anion Gap 8.2 BUN 25 H Creatinine 2.32 H Estimated GFR/1.73 m2 27.02 Glucose 173 H Calcium 8.2 L Patient ABO/Rh O Positive Antibody Screen Negative 03/02/20 06:05 WBC 12.62 H RBC 4.57 Hgb 14.0 Hct 42.4 MCV 92.8 MCH 30.6 MCHC 33.0 RDW 11.7 L Plt Count 195 MPV 10.3 Immature Gran % 0.3 Neutrophils % 80.2 Lymphocytes % 10.1 Monocytes % 9.1 Eosinophils % 0.1 Basophils % 0.2 Nucleated RBC % 0 Absolute Neutrophils 10.12 H Absolute Lymphocytes 1.27 Absolute Monocytes 1.15 H Absolute Eosinophils 0.01 Absolute Basophils 0.03 Sodium Potassium Chloride Carbon Dioxide Anion Gap BUN Creatinine Estimated GFR/1.73 m2 Glucose Calcium Patient ABO/Rh Antibody Screen
--- NOTE | 2020-03-02 10:17 | PDOC.CMIN ---
- If Service Date Differs Date of service: 03/02/20 Time of Service: 16:22 Care Management Initial Assess REASON FOR HOSPITALIZATION:: Colostomy Takedown PAST MEDICAL HISTORY/PAST SURGICAL HISTORY:: AAA, Anemia, BPH with urinary obs/LUTS, CAD, CHF, CKD stage 3, DM, diverticulitis of large intestine with absess, erectile dysfunction, fatty liver, hearing impairment, HTN, hypercholecterolemia, hypomagnesemia, ischemic cardiomyopathy, mass of salivary gland, [place], phimosis, renal insufficency, skin lesion of scalp, type 2 DM, endovascular stent graft for abdominal aortic aneurysm, heart artery stent, hernia repair, left hemicolectomy PREVIOUS FUNCTIONAL STATUS/SOCIAL/FAMILY SUPPORTS:: Cesar resides in [facility] with his significant other, Montse. He is independent at baseline in the community. CURRENT FUNCTIONAL STATUS:: Cesar was able to sit up in the chair, he remains a one assist with a FWW at this time. He continues to be monitored post surgically. CM continues to follow. ADVANCE DIRECTIVES:: None on file at [facility]. Has patient been provided with info about the portal/API?: Yes Did the patient sign up for the portal?: No CODE STATUS:: Full Code INSURANCE COVERAGE / FINANCIAL ISSUES:: AARP. Medicare PRIMARY CARE PHYSICIAN:: Rolando Moise M.D. POTENTIAL DISCHARGE NEEDS:: Follow up appointments with surgical services and PCP. PATIENT/FAMILY EDUCATION NEEDS:: Review discharge instructions, discuss Ask Me Three. ANTICIPATED BARRIERS TO DISCHARGE:: None identified at this time. TRANSPORTATION:: Via private vehicle with his significant other, Montse. PLAN:: Cesar continues to be closely monitored at this time. He will return home when ready per MD, likely after the weekend. He will follow up with his PCP and plan of care as prescribed. Anticipate he will have new [facility] orders for RN/PT/OT, per MD. Cesar will transport via private vehicle with his significant other, Montse.
--- NOTE | 2020-03-02 12:55 | W.PM.PROGNOT ---
Date of Service Date of service: 03/02/20 Time of Service: 12:55 Assessment and Plan Assessment and plan (1) Status post colostomy takedown: Status: Acute Assessment and plan: He is recovering well Tolerating PO, will decrease IVF and transition to PO meds Heating pad for shoulder pain Transfer to [facility] Anticipate weaning of epidural by anesthesia, will DC Pang after that is removed. Subjective Subjective Interval history since last seen: Generally doing well No chest pain or SOB Main complaint is right shoulder pain. Incisional pain controlled Tolerating a soft diet. Has passed flatus. Feels slightly weak with ambulation. Exam Narrative Exam Narrative: Alert Lungs CTA Heart RRR Abdomen soft. Incision with intact dressing. Ostomy site is packed with gauze. Objective Last Vital Signs Temp 97.9 F 03/02/20 09:49 Pulse 49 L 03/02/20 09:49 Resp 11 L 03/02/20 09:49 BP 167/77 H 03/02/20 09:49 Pulse Ox 96 03/02/20 09:49 Laboratory Results - last 24 hr 03/02/20 03/02/20 06:05 06:05 WBC 12.62 H RBC 4.57 Hgb 14.0 Hct 42.4 MCV 92.8 MCH 30.6 MCHC 33.0 RDW 11.7 L Plt Count 195 MPV 10.3 Immature Gran % 0.3 Neutrophils % 80.2 Lymphocytes % 10.1 Monocytes % 9.1 Eosinophils % 0.1 Basophils % 0.2 Nucleated RBC % 0 Absolute Neutrophils 10.12 H Absolute Lymphocytes 1.27 Absolute Monocytes 1.15 H Absolute Eosinophils 0.01 Absolute Basophils 0.03 Sodium 133 L Potassium 3.6 Chloride 102 Carbon Dioxide 22.8 Anion Gap 8.2 BUN 25 H Creatinine 2.32 H Estimated GFR/1.73 m2 27.02 Glucose 173 H Calcium 8.2 L
--- NOTE | 2020-03-02 13:16 | PDOC.ANES ---
Date of service: 03/02/20 Time of Service: 13:16 Anesthesia Note Report Anesthesia Note: Went to see Cesar. He is sitting in a chair watching TV in no acute distress. Discussed and re-educated on epidural. He would like to have the brooke catheter removed as well as the epidural. I told him he is POD1 and that given his incision size, he would likely be very uncomfortable. He does states he has mild discomfort to his right abdomen and his left is comfortable. The plan I made with Cesar is that the brooke catheter will be removed but may need to be replaced if he is unable to void and his bladder scan shows a volume >600ml. We will also leave the epidural infusing at a new rate of 8ml/hr due to some quad weakness, although his motor strength is 5/5 when tested. We will also change his epidural dressing and pull back the catheter to 10cm hoping to bring the catheter more midline. Tomorrow morning, we will plan to stop the epidural infusion to assess his discomfort and reassess the plan from there. He agrees with this plan. Dressing change was performed, site looks great without redness, swelling, or leaking. Catheter was pulled back to 8cm with ease, new dressing placed, epidural infusion reduced to 8ml/he and pt. educated again on PCEA use. He mobilizes well with walker but does require an assist.
--- NOTE | 2020-03-02 16:17 | CHAPLAIN ---
Cesar was resting in bed when I visited. He shared some personal history and talked about some complicated family issues with this kids. He said it was good to vent. After retiring and moving back to [facility], Cesar worked for [employer]. 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 He was raised in the [employer], but hasn't attended or been connected to the voodoo in many years.
[2020-03-02] MEDS: Enoxaparin 40 MG/0.4 ML SYR SC (18:27)
[2020-03-02] MEDS: Pantoprazole 40 MG VIAL IVP (18:27)
[2020-03-02] MEDS: Normal Saline Flush 10 ML SYR IVP (23:30)
[2020-03-03] VITALS (12 sets, daily range): BP systolic 116–179; BP diastolic 57–95; PULSE 49–70; RESP 14–25; TEMP 37.6; O2SAT 93–98
[2020-03-03] MEDS: FentaNYL/ROPIvacaine 2 mcg/ml and 0.1% 200 ML CADD Cassette EP (02:15)
[2020-03-03] MEDS: Normal Saline 1,000 ML 80 ML IV (02:46)
[2020-03-03 06:37] LABS: Abs Immature Grans 0.05 10^3/uL (0.0-0.06); Absolute Basophil Count 0.05 10^3/uL (0.0-0.2); Absolute Eosinophil Count 0.51 10^3/uL (0.0-0.7); Absolute Monocyte Count 1.08 10^3/uL (0.1-0.8); Basophils % 0.4; Eosinophils % 4.4; HCT 40.7 % (40.0-50.0); HGB 13.1 g/dL (13.5-17.5); Immature Grans % 0.4; Lymphocytes % 15.7; MCH 30.5 pg (27.0-33.0); MCHC 32.2 % (32.0-36.0); MCV 94.7 fL (80-95); Monocytes % 9.4; Neutrophils % 69.7; Nucleated RBC 0 %; Platelet Count 194 10^3/uL (130-400); RDW 11.9 % (11.8-14.1); RDW-SD 40.9 fL
[2020-03-03 06:44] LABS: Anion Gap 7.6 mmol/L (3-11); BUN 21 mg/dL (7-18); CO2 24.4 mmol/L (21.0-32.0); CREATININE 2.28 mg/dL (0.70-1.30); Calcium 8.5 mg/dL (8.5-10.1); Chloride 108 mmol/L (98-107); Estimated GFR 27.57 (mL/min/1.73m2); Glucose 140 mg/dL (74-106); Potassium 4.3 mmol/L (3.5-5.1); Sodium 140 mmol/L (136-145)
[2020-03-03 06:45] LABS: Absolute Lymphocyte Count 1.81 10^3/uL (1.2-3.4); Absolute Neutrophil Count 8.02 10^3/uL (1.2-6.7)
--- NOTE | 2020-03-03 07:14 | W.PM.PROGNOT ---
Date of Service Date of service: 03/03/20 Time of Service: 06:45 Assessment and Plan Assessment and plan (1) Status post colostomy takedown: Status: Acute Assessment and plan: Bleeding from incision has stopped. HgB stable at 13.1. Will hold tonights Lovenox due to small amount of blood passed with flatus. Plan for transfer to [facility] Anesthesia will work towards removing epidural today Subjective Subjective Interval history since last seen: No new complaints. Pain is controlled. Right shoulder still sore. Passed flatus with a small amount of blood present last night. Also had bleeding from his incision that has slowed after changing the dressing. Seemed to occur more while up out of bed. Exam Narrative Exam Narrative: No distress Abdomen soft, not distended. Few small areas of spotting on the dressing applied early this am. No bleeding seen from incision. Objective Last Vital Signs Temp 97.9 F 03/02/20 09:49 Pulse 50 L 03/03/20 07:01 Resp 15 03/03/20 07:01 BP 141/71 H 03/03/20 07:01 Pulse Ox 95 03/02/20 13:00 Laboratory Results - last 24 hr 03/03/20 03/03/20 06:13 06:13 WBC 11.50 H RBC 4.30 L Hgb 13.1 L Hct 40.7 MCV 94.7 MCH 30.5 MCHC 32.2 RDW 11.9 Plt Count 194 MPV 11.0 Immature Gran % 0.4 Neutrophils % 69.7 Lymphocytes % 15.7 Monocytes % 9.4 Eosinophils % 4.4 Basophils % 0.4 Nucleated RBC % 0 Absolute Neutrophils 8.02 H Absolute Lymphocytes 1.81 Absolute Monocytes 1.08 H Absolute Eosinophils 0.51 Absolute Basophils 0.05 Sodium 140 Potassium 4.3 Chloride 108 H Carbon Dioxide 24.4 Anion Gap 7.6 BUN 21 H Creatinine 2.28 H Estimated GFR/1.73 m2 27.57 Glucose 140 H Calcium 8.5
[2020-03-03] MEDS: Metoprolol CR 50 MG TABCR 200 MG PO (08:19)
[2020-03-03] MEDS: Lisinopril 20 MG TAB PO (08:20)
[2020-03-03] MEDS: metFORMIN 500 MG TAB PO ×2 (08:20→17:55)
[2020-03-03] MEDS: Tamsulosin 0.4 MG CAPCR PO (08:20)
--- NOTE | 2020-03-03 10:37 | W.PM.PROGNOT ---
Documented by User: QUINN Hill 03/03/20 10:40 Date of Service Date of service: 03/03/20 Time of Service: 10:37 Assessment and Plan Assessment and plan (1) Status post colostomy takedown: Status: Acute Assessment and plan: POD #2 Patient is tolerating post-op diet Pain is well controlled with epidural Incisions are looking good. Some bloody drainage noted. Continue dressing with 4x4, ABD and mediport tape. Encouraged activity OOB Continue Pulmonary toilet. Subjective Subjective Interval history since last seen: Patient is awake and talkative this morning. Feeling pretty well. Exam Const General: cooperative, healthy appearing and comfortable Orientation: alert and oriented x3 Resp Effort & Inspection: normal respiratory effort, no audible wheezes and no cough Skin Other: Midline incision is healing well. Minimal bloody drainage. [place] in place. Ostomy closure site- edges are well approximated. Sutures in pace. Objective Last Vital Signs Temp 36.6 C 03/02/20 09:49 Pulse 55 L 03/03/20 10:28 Resp 17 03/03/20 10:28 BP 158/65 H 03/03/20 10:28 Pulse Ox 93 03/03/20 08:01 Laboratory Results - last 24 hr 03/03/20 03/03/20 06:13 06:13 WBC 11.50 H RBC 4.30 L Hgb 13.1 L Hct 40.7 MCV 94.7 MCH 30.5 MCHC 32.2 RDW 11.9 Plt Count 194 MPV 11.0 Immature Gran % 0.4 Neutrophils % 69.7 Lymphocytes % 15.7 Monocytes % 9.4 Eosinophils % 4.4 Basophils % 0.4 Nucleated RBC % 0 Absolute Neutrophils 8.02 H Absolute Lymphocytes 1.81 Absolute Monocytes 1.08 H Absolute Eosinophils 0.51 Absolute Basophils 0.05 Sodium 140 Potassium 4.3 Chloride 108 H Carbon Dioxide 24.4 Anion Gap 7.6 BUN 21 H Creatinine 2.28 H Estimated GFR/1.73 m2 27.57 Glucose 140 H Calcium 8.5 Documented by User: Marilyn López, 03/03/20 21:31 Assessment and Plan Assessment and plan (1) Status post colostomy takedown: Status: Acute Assessment and plan: Patient seen and examined. Agree with above. Patient is tolerating a soft diet. He has had multiple bowel movements. We discussed that his bowel movements may be irregular for a while and this is expected. He has had no further bleeding. The epidural has been off since 730 this morning. He has not had anything for pain other than Tylenol and is doing very well. He has been up walking around. The epidural was removed and the tip was intact it was witnessed by nursing that. He has oxycodone and Tylenol that he can use for pain. We are working on getting transferred to [facility]. We can discontinue telemetry. Discontinue his IV fluids. Continue with supportive care.
--- NOTE | 2020-03-03 12:32 | W.NUTRFU ---
Date of service: 03/03/20 Time of Service: 12:32 Nutritional Follow up NOTE: 84 year old male admitted for colostomy reversal with hx of DM2, fatty liver and CKD. BMI indicates overweight status, stable > 1 year. Diet advanced to surgical soft diet. Does not appear to be at nutritional risk at this time. will follow. Time Spent in Nutritional Counseling and Treatment: 0
--- NOTE | 2020-03-03 14:52 | PDOC.CMPRO ---
Care Management Progress Note S/O: Cesar ambulated outside of his room with nursing. He continues to be closely monitored post surgically and appeared to be in good spirits. No change to overall plan. CM continues to follow. A: 84 year old male admitted to [facility] 03/01/30 for colostomy takedown. P: Cesar continues to be closely monitored at this time. He will return home when ready per MD, likely after the weekend. He will follow up with his PCP and plan of care as prescribed. Anticipate he will have new [facility] orders for RN/PT/OT, per MD. Cesar will transport via private vehicle with his significant other, Montse.
--- NOTE | 2020-03-03 16:21 | PHA.REVIEW ---
Pharmacy Admission Review - Admission Clinical Review (Last Reviewed 03/01/20 @ 08:48 by Esme Lange) Status post colostomy takedown (Acute) Colostomy status (Acute) No Known Allergies Allergy (Verified 03/01/20 08:45) Height 5 ft 11 in Weight 94.3 kg - Renal Dosing Renal Dosing: BUN 21 mg/dL (7-18) H 03/03/20 06:13 Creatinine 2.28 mg/dL (0.70-1.30) H 03/03/20 06:13 Medications needing adjustments: Reviewed List of meds needing interventions: lmwh - done by md - Anticoagulation Anticoagulation: Hgb 13.1 g/dL (13.5-17.5) L 03/03/20 06:13 Hct 40.7 % (40.0-50.0) 03/03/20 06:13 Plt Count 194 10^3/uL (130-400) 03/03/20 06:13 Creatinine 2.28 mg/dL (0.70-1.30) H 03/03/20 06:13 DVT Prohphylaxis: Reviewed Medications: Enoxaparin - Opiate Usage Evaluate Pain Scale/Pains Meds: Reviewed Scheduled Bowel Reg ordered if on Opiates?: No - Relevant Labs Sodium 140 mmol/L (136-145) 03/03/20 06:13 Potassium 4.3 mmol/L (3.5-5.1) 03/03/20 06:13 Chloride 108 mmol/L (98-107) H 03/03/20 06:13 Electrolytes, C-Reactive P, ESR: Reviewed - DM Control DM Control: Glucose 140 mg/dL (74-106) H 03/03/20 06:13 Insulin Dosing: N/A - Heart Failure/IL EF%, MYRA's, B-Blockers, Diuretics: Reviewed - BP Control BP Control: Blood Pressure 129/57 Blood Pressure 151/64 Blood Pressure 158/65 Blood Pressure 137/60 Blood Pressure 137/60 Blood Pressure 137/60 Blood Pressure 141/71 If elevated: Reviewed - Qtc Review If Elevated: N/A - IV to PO Switch IV Medications: Reviewed - Home Meds Home Med List reviewed: Reviewed Relevent Home Meds Not ordered & why?: aspirin, atorvastatin, clopidogrel (hasn't filled since july), vit b12, furosemide - Current meds Current Medication Order Review: Intervened (dc'd a couple of pacu orders (ephedrine and phenylephrine); epidural was DC'd)
--- NOTE | 2020-03-03 16:23 | PDOC.ANES ---
Date of service: 03/03/20 Time of Service: 16:23 Anesthesia Note Report Anesthesia Note: This morning, I saw Cesar and he was doing well, pain free and able to ambulate. Hi sepidural infusion was turned off around 0745 to see how he would do. Throughout the day he was ambulatory only with mild abdominal discomfort. The catheter was at 10cm with no changes in infusion/bolus. Site was not red/painful. Dr. López evaluated patient and removed epidural catheter at around 1615. Pt. is still comfortable. sitting in chair and conversive. Last loveonx dose was yesterday evening. Next dose will be at 0800 tomorrow but no sooner than 4 hours after catheter was removed.
[2020-03-03] MEDS: Acetaminophen 500 MG TAB 1000 MG PO (17:55)
[2020-03-03] MEDS: Magnesium Oxide 400 MG TAB PO (20:37)
[2020-03-04] VITALS (11 sets, daily range): BP systolic 118–153; BP diastolic 66–82; PULSE 52–70; RESP 16–18; TEMP 37.1–37.8; O2SAT 92–98
[2020-03-04] MEDS: Acetaminophen 500 MG TAB 1000 MG PO (02:13)
[2020-03-04 07:40] LABS: Abs Immature Grans 0.05 10^3/uL (0.0-0.06); Absolute Basophil Count 0.02 10^3/uL (0.0-0.2); Absolute Eosinophil Count 0.93 10^3/uL (0.0-0.7); Absolute Monocyte Count 0.94 10^3/uL (0.1-0.8); Absolute Neutrophil Count 7.97 10^3/uL (1.2-6.7); Basophils % 0.2; Eosinophils % 8.3; HCT 41.6 % (40.0-50.0); HGB 13.8 g/dL (13.5-17.5); Immature Grans % 0.4; Lymphocytes % 11.6; MCH 30.7 pg (27.0-33.0); MCHC 33.2 % (32.0-36.0); MCV 92.4 fL (80-95); MPV 11.2 fL (8.0-11.0); Monocytes % 8.4; Neutrophils % 71.1; Nucleated RBC 0 %; Platelet Count 206 10^3/uL (130-400); RDW 12.1 % (11.8-14.1); RDW-SD 41.2 fL; WBC 11.21 10^3/uL (4.4-10.8)
[2020-03-04 07:54] LABS: BUN 20 mg/dL (7-18); CREATININE 1.92 mg/dL (0.70-1.30); Calcium 8.6 mg/dL (8.5-10.1); Chloride 107 mmol/L (98-107); Estimated GFR 33.61 (mL/min/1.73m2); Glucose 146 mg/dL (74-106); Magnesium 1.6 mg/dL (1.8-2.4); Sodium 138 mmol/L (136-145)
[2020-03-04] MEDS: Metoprolol CR 50 MG TABCR 200 MG PO (08:30)
[2020-03-04] MEDS: Magnesium Oxide 400 MG TAB PO ×2 (08:30→19:55)
[2020-03-04] MEDS: metFORMIN 500 MG TAB PO ×2 (08:31→17:51)
[2020-03-04] MEDS: Lisinopril 20 MG TAB PO (08:31)
[2020-03-04] MEDS: Tamsulosin 0.4 MG CAPCR PO (08:31)
[2020-03-04] MEDS: Enoxaparin 30 MG/0.3 ML SYR SC (08:31)
--- NOTE | 2020-03-04 12:12 | W.PM.PROGNOT ---
Date of Service Date of service: 03/04/20 Time of Service: 12:12 Assessment and Plan Assessment and plan (1) Status post colostomy takedown: Status: Acute Assessment and plan: POD #3 doing extremely well. tolerating regular diet walking pain controlled on orals rash around stoma is yeast rash on torso is contact. shower. plan d/c in am cont home med regimen (2) Type 2 diabetes mellitus: Status: Acute (3) Fatty liver: Status: Acute (4) Chronic kidney disease, stage 3: Status: Acute (5) Ischemic cardiomyopathy: Status: Acute (6) Diabetes: Status: Chronic Qualifiers: Diabetes mellitus type: type 2 Diabetes mellitus emt intermediate insulin use: without emt intermediate use Diabetes mellitus complication status: with kidney complications Diabetes mellitus complication detail: with chronic kidney disease Chronic kidney disease stage: stage 2 (mild) Qualified Code(s): E11.22 - Type 2 diabetes mellitus with diabetic chronic kidney disease; N18.2 - Chronic kidney disease, stage 2 (mild) Subjective Subjective Interval history since last seen: Pt is doing well. no headaches. No CP or SOB. no productive cough. no dysuria. no leg pain or swelling. He is eating modestly. He had a BM. no gross blood. Exam Narrative Exam Narrative: PHYSICAL EXAM GENERAL APPEARANCE: Alert, healthy appearance, oriented, in no acute distress SKIN: No hyperpigmentation, vitiligo, or suspicious lesions. Rash on back/face/upper torso. Denies puritis. ? from bathe N Bed HYDRATION: Well hydrated HEAD, EYES, EARS, NECK, AND THROAT: Head is normocephalic, pupils equal, round, reactive to light and accommodation, ocular movement intact, sclera clear and no jaundice. Dentition intact. LUNGS: normal respiration, clear to auscultation HEART: Regular rate and rhythm, EXTREMITY: No edema or cyanosis ABDOMEN: non tender to palpation, no masses or distention, no hernias. Normal bowel sounds.incision c/d/i. mild redness around ostomy incision- yeast NEURO: no focal neuro deficits. Objective Last Vital Signs Temp 37.4 C 03/04/20 06:40 Pulse 52 L 03/04/20 08:35 Resp 16 03/04/20 06:40 BP 146/66 H 03/04/20 08:35 Pulse Ox 98 10/31/20 06:40 Laboratory Results - last 24 hr 03/04/20 03/04/20 06:20 06:20 WBC 11.21 H RBC 4.50 Hgb 13.8 Hct 41.6 MCV 92.4 MCH 30.7 MCHC 33.2 RDW 12.1 Plt Count 206 MPV 11.2 H Immature Gran % 0.4 Neutrophils % 71.1 Lymphocytes % 11.6 Monocytes % 8.4 Eosinophils % 8.3 Basophils % 0.2 Nucleated RBC % 0 Absolute Neutrophils 7.97 H Absolute Lymphocytes 1.30 Absolute Monocytes 0.94 H Absolute Eosinophils 0.93 H Absolute Basophils 0.02 Sodium 138 Potassium 4.0 Chloride 107 Carbon Dioxide 21.0 Anion Gap 10.0 BUN 20 H Creatinine 1.92 H Estimated GFR/1.73 m2 33.61 Glucose 146 H Calcium 8.6 Magnesium 1.6 L
[2020-03-04] MEDS: Furosemide 40 MG TAB PO (13:56)
[2020-03-04] MEDS: Nystatin CREAM 15 GM TUBE TP ×2 (13:59→19:55)
--- NOTE | 2020-03-04 14:57 | CMPROGNOTE_ITS ---
- If Service Date Differs Date of service: 03/04/20 Time of Service: 14:57 Care Management Progress Note S/O: No change to overall plan. Cesar is improving and is moved out of ICU to the Med/Surg floor. Lab work done this morning reveals an elevated BUN at 20, elevated Creatitine level at 1.92, and low magnesium at 1.6. Per chart review, he is eating modestly and his pain is well controlled on oral pain medication. CM will continue to follow. A: 84 year old male admitted to [facility] 03/01/30 for colostomy takedown. P: No change in plan. Cesar continues to be monitored at this time. He will return home when ready per MD, likely after the weekend. He will follow up with his PCP and plan of care as prescribed. Anticipate he will have new [facility] orders for RN/PT/OT, per MD. Cesar will transport via private vehicle with his significant other, Montse. CM will continue to follow.
--- NOTE | 2020-03-04 20:59 | DSE_ITS ---
Date of service: 03/05/20 Time of Service: 12:00 DS: Diagnosis Discharge Diagnosis (1) Status post colostomy takedown: Status: Acute (2) Type 2 diabetes mellitus: Status: Acute (3) Fatty liver: Status: Acute (4) Chronic kidney disease, stage 3: Status: Acute (5) Ischemic cardiomyopathy: Status: Acute (6) Diabetes: Status: Chronic Discharge Plan Disposition Patient Disposition: HOME Condition: Improving Discharge Details Reason For Visit: COLOSTOMY TAKEDOWN Admit Date/Time: 03/01/20 06:00 Admit Provider: Precious Quijano Attending Provider: Precious Quijano [facility] Hospital Course: Patient has a history of a ruptured diverticulum approximately 18 months ago. He underwent sigmoid resection resection and diverting ostomy on March 01 he came in for takedown and reanastomosis to his rectal stump. Please see operative note for details of procedure. Postoperatively he was kept in the ICU for observation for overnight. He had a epidural for pain control. This was DC'd on postop day #2. He had no wound infections, pneumonias, bleeding, DVTs and is done remarkably well with no complications. At the time of discharge she is tolerating a regular diet. His lungs are clear he is ambulatory he has no trouble urinating he has no signs of DVT. He is able been able to move his bowels. His pain is controlled with Tylenol only. He is discharged home with his significant other. We reviewed his discharge instructions. He will follow- up with Dr. Quijano on Friday. We will decide on when to resume his Plavix at that point. He will continue on a baby aspirin. He requires no further antibiotics. Please see his discharge instructions. Patient is discharged home in stable and satisfactory condition. Home Meds and New Rx's Prescriptions: New nystatin 100,000 unit/gram cream 1 applic topical BID Qty: 30 RF: 0 hydrocodone-acetaminophen [[place]] 5-325 mg tablet 1 tab PO Q6H PRNQty: 14 RF: 0 Continued metoprolol succinate 200 mg tablet extended release 24 hr 200 mg PO DAILY RF: 0 fluocinolone 0.01 % cream 1 applic topical BID RF: 0 Januvia 50 mg tablet 50 mg PO DAILY RF: 0 magnesium oxide 400 mg magnesium capsule 400 mg PO BID RF: 0 nitroglycerin [Nitrostat] 0.4 mg tablet, sublingual 0.4 mg sublingual Q5 MIN PRN X3 PRNRF: 0 tamsulosin 0.4 mg capsule 0.4 mg PO DAILY RF: 0 ondansetron HCl [Zofran] 4 mg tablet 4 mg PO ONCE Qty: 14 RF: 0 metformin 500 MG tablet 500 mg PO BID RF: 0 ibuprofen 200 MG capsule 600 - 800 mg PO PRN PRNRF: 0 aspirin [Aspir-Low] 81 MG tablet,delayed release (DR/EC) 81 mg PO DAILY RF: 0 lisinopril 20 MG tablet 20 mg PO DAILY RF: 0 atorvastatin [Lipitor] 40 MG tablet 40 mg PO QPM RF: 0 acetaminophen [Acetaminophen Extra Strength] 500 mg Tablet 1,000 mg PO Q8H PRNRF: 0 furosemide 40 mg tablet 40 mg PO DAILY RF: 0 cyanocobalamin (vitamin B-12) 1,000 mcg Tablet 1,000 mcg PO DAILY RF: 0 Discontinued neomycin 500 mg tablet 2 g PO BID Qty: 8 RF: 0 metronidazole 500 mg tablet 2,000 mg PO BID Qty: 8 RF: 0 bisacodyl [Dulcolax (bisacodyl)] 5 mg tablet,delayed release (DR/EC) 5 mg PO ONCE Qty: 8 RF: 0 polyethylene glycol 3350 17 gram powder in packet 255 g PO DAILY Qty: 15 RF: 0 clopidogrel [Plavix] 75 MG tablet 75 mg PO DAILY RF: 0 DuoDERM Hydroactive Paste 30 g topical BID Qty: 12 RF: 13 Discharge Instructions Instructions: Low Fiber Diet (GEN) Additional Instructions: Use ice for any discomfort or soreness and in the evenings and before bedtime. Ice keeps the swelling down and swelling causes pain. Make sure you wrap the ice pack in a towel and don't apply directly to the skin. -No driving x1 week or of you are taking pain medications. -If you have cyn or sutures in place, they will be removed at your clinic appointment in 7-10 days. -Follow-up with Dr. Quijano next Friday in clinic -Hold PLavix until F/u on Friday. Dr. Quijano will decide when to resume plavix. -soft diet: No beef/pork/ raw vegetables x1 -week. Cooked vegetables are fine. AVoid lots of breads/crakers & chips and raw fruit & vegy for 1 weeks time. -no straining to move bowels -pain meds are very constipating: if you do not move your bowels daily take a dose of OTC milk of magnesia -It is ok to shower. No bathe, soaking, swimming or hot tubs -Keep wound clean and dry. Wash incision with soap and water daily. Pat dry, don't rub. -use nystatin cream twice a day around ostomy site until redness goes away -wear abdominal binder for your comfort. -Protein supplements daily. You may find that your appetite is smaller. Eat 3-6 small meals throughout the day. It is important to drink lots of water after surgery, 6-10 glasses a day. -If you were given an incentive spirometry (breathing reservations sales agent?), continue to do this 10x/hour while awake. -We do want you up walking, at least 5-6 times per day. This is very important to prevent pneumonia and blood clots. You can climb stairs, take them slowly. -No lifting over 5 pounds. This is very important to avoid developing a hernia in your incision. -You may find that you are very tired after surgery- this is normal. Stand Alone Forms: Nursing Discharge Form Activity:: up walking 5-6x a day. no Equipment/Supplies:: No Equipment Needed Diet:: low fiber x 1 week Discharge Orders Discharge Orders: Discharge Order (Routine); Ordered 03/05/20 Ordered By: Marilyn López DS: Summary Status at Discharge Functional status at discharge: independent ambulation Overall status at discharge: patient is back to baseline Mental Status: mental status grossly normal Speech and Movement: speech and movement normal Mood: congruent mood Affect: normal affect Exam Psych Mental Status: mental status grossly normal Speech and Movement: speech and movement normal Mood: congruent mood Affect: normal affect DS: Data Vitals/I&O Vitals and I&O: Vital Signs Temperature 37.2 C 03/04/20 19:53 Temperature Source Tympanic 03/04/20 19:53 Pulse 70 03/04/20 19:53 Pulse Rhythm Regular 03/04/20 19:41 Pulse 54 L 03/03/20 14:01 Respiratory Rate 16 03/04/20 19:53 Respiratory Effort Non-Labored 03/04/20 19:41 Respiratory Depth Normal 03/04/20 19:41 Respiratory Pattern Normal 03/04/20 19:41 Blood Pressure 137/74 03/04/20 19:53 Blood Pressure Mean 97 03/04/20 11:59 Blood Pressure Position Supine 03/02/20 09:49 Pulse Oximetry 96 03/04/20 19:53 Respiratory End-tidal CO2 31 03/01/20 14:45 Oxygen Delivery Method Room Air 03/04/20 19:53 Oxygen Flow Rate 0 03/04/20 19:53 Pain Level 2 03/04/20 15:00 Intake & Output 03/03/20 03/04/20 03/04/20 23:59 11:59 23:59 Intake Total 1000 / 1400 300 / 300 Output Total 575 / 1325 500 / 500 Balance 425 / 75 -200 / -200 Intake: IV 1000 / 1000 Oral 300 / 300 Output: Urine 575 / 1325 500 / 500 Other: Urine Color Pale Yellow Yellow Yellow Urine Appearance Clear Clear Urine Odor None None Comment Mixed with stool. pt voided in toilet. Stool Occult Blood Positive Stool Size Small Moderate Stool Characteristics Soft Soft Brown Voiding Methods Bedside Commode Bedside Commode Toilet Data Completed and Pending Labs on day of discharge: Labs from last 24 hours 03/04/20 03/04/20 06:20 06:20 WBC 11.21 H RBC 4.50 Hgb 13.8 Hct 41.6 MCV 92.4 MCH 30.7 MCHC 33.2 RDW 12.1 Plt Count 206 MPV 11.2 H Immature Gran % 0.4 Neutrophils % 71.1 Lymphocytes % 11.6 Monocytes % 8.4 Eosinophils % 8.3 Basophils % 0.2 Nucleated RBC % 0 Absolute Neutrophils 7.97 H Absolute Lymphocytes 1.30 Absolute Monocytes 0.94 H Absolute Eosinophils 0.93 H Absolute Basophils 0.02 Sodium 138 Potassium 4.0 Chloride 107 Carbon Dioxide 21.0 Anion Gap 10.0 BUN 20 H Creatinine 1.92 H Estimated GFR/1.73 m2 33.61 Glucose 146 H Calcium 8.6 Magnesium 1.6 L PFSH Medical History AAA (abdominal aortic aneurysm) Anemia 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) CAD (coronary artery disease) CHF (congestive heart failure) Chronic kidney disease, stage 3 Diabetes mellitus Diverticulitis of large intestine with abscess Erectile dysfunction Fatty liver Hearing impairment HTN (hypertension) Hypercholesterolemia Hypomagnesemia Ischemic cardiomyopathy Mass of salivary gland Myocardial infarct Phimosis Phimosis (10/17/15) Renal insufficiency Skin lesion of scalp Type 2 diabetes mellitus Surgical History H/O phimosis s/p repair History of endovascular stent graft for abdominal aortic aneurysm (AAA) History of heart artery stent S/P hernia repair S/P left hemicolectomy (~07/19/18) Social History Smoking/Tobacco Use Status: Former Tobacco Use Quit Date: 01/03/17 Tobacco: How many years used: 60 Smoking risk assessment performed?: Yes Alcohol Intake: current Alcohol Intake frequency: 0-2 drinks per day Alcohol type: beer Drug use: Never Substance use type: does not use Do you feel safe at home: Yes Do you feel safe in your relationship?: Yes
[2020-03-05 03:55] VITALS: BP 125/73; PULSE 84; RESP 16; TEMP 37; O2SAT 94
[2020-03-05 08:47] VITALS: BP 123/70; PULSE 87; RESP 19; TEMP 37.3; O2SAT 97
[2020-03-05] MEDS: Metoprolol CR 50 MG TABCR 200 MG PO (09:24)
[2020-03-05] MEDS: Nystatin CREAM 15 GM TUBE TP (09:24)
[2020-03-05] MEDS: Lisinopril 20 MG TAB PO (09:24)
[2020-03-05] MEDS: Enoxaparin 30 MG/0.3 ML SYR SC (09:24)
[2020-03-05] MEDS: Aspirin E.C. 81 MG TABEC PO (09:25)
[2020-03-05] MEDS: Magnesium Oxide 400 MG TAB PO (09:25)
[2020-03-05] MEDS: Furosemide 40 MG TAB PO (09:25)
[2020-03-05] MEDS: Tamsulosin 0.4 MG CAPCR PO (09:25)
[2020-03-05] MEDS: metFORMIN 500 MG TAB PO (09:25)
--- NOTE | 2020-03-05 11:31 | CMDISCH_ITS ---
- If Service Date Differs Date of service: 03/05/20 Time of Service: 11:31 LACE Index Scoring Tool - Questions: Length of Stay (in days): 3 Acuity (Admit via E.D.?): No Comorbidities: Diabetes w/o Complication, Liver or Renal Disease E.D. Visits: 0 - Answers: Total Score: 8 Risk of Readmission: Low Risk Care Management Discharge Reason for Hospitalization: Colostomy Takedown Discharge Plan: Cesar is discharged home with no new services, as he is i ndependent at baseline. He will follow up with his PCP, General Surgery, and plan of care as directed. His friend, Montse, is driving him home via private vehicle. Patient/Family Education Needs: Discharge instructions, limitations, follow up plan of care, including Ask Me Three and self-management.
[2020-03-05 12:02] VITALS: BP 122/78; PULSE 83; RESP 20; TEMP 37.5; O2SAT 95
--- NOTE | 2020-03-05 12:25 | PDOC.HHF2F ---
Home Health Certification Home Health Certification: 1. Encounter Date and Reason I certify that CALI PUGA was seen by Marilyn López on 03/05/20 and that I had a [id number] encounter with this patient that meets the physician face to face encounter requirements. 2. Clinical Findings Supporting Skilled Need and Homebound Status I certify that home health services are medically necessary, include either intermittent fdc and/or physical/speech therapy, and that this patient is homebound in that absences from the home require considerable and taxing effort and are infrequent or of short duration, or are attributable to the need to receive medical care. [X] (a) Attached documentation from encounter provides clinical findings supporting skilled need and homebound status (including what assistance patient requires to leave the home). The encounter with the patient was in whole, or in part, for the following medical condition, which is the primary reason for home health care: COLOSTOMY TAKEDOWN Assisted: Physical Therapy: pt neds home PT for strength. s/p laparotomy and colostmy takedown Speech Therapy: Homebound: 3. Certification and Authentication I certify that I composed the above information based on my clinical judgement relating to this patient's medical condition and, if applicable, clinical findings communicated to me by the NPP or inpatient physician who performed the Home Health Referral. All further orders will be obtained through (Community Based Physician - PCP)
--- NOTE | 2020-03-05 12:41 | W.PM.PROGNOT ---
Date of Service Date of service: 03/05/20 Time of Service: 12:41 Assessment and Plan Assessment and plan (1) Status post colostomy takedown: Status: Acute (2) Type 2 diabetes mellitus: Status: Acute (3) Fatty liver: Status: Acute (4) Chronic kidney disease, stage 3: Status: Acute (5) Ischemic cardiomyopathy: Status: Acute (6) Anemia: Status: Chronic (7) Hearing impairment: Status: Acute (8) Diabetes: Status: Chronic Qualifiers: Diabetes mellitus type: type 2 Diabetes mellitus termite inspector insulin use: without termite inspector use Diabetes mellitus complication status: with kidney complications Diabetes mellitus complication detail: with chronic kidney disease Chronic kidney disease stage: stage 2 (mild) Qualified Code(s): E11.22 - Type 2 diabetes mellitus with diabetic chronic kidney disease; N18.2 - Chronic kidney disease, stage 2 (mild) (9) Diverticulitis of large intestine with abscess: Status: Acute Qualifiers: Diverticulitis bleeding: without bleeding Qualified Code(s): K57.20 - Diverticulitis of large intestine with perforation and abscess without bleeding Subjective Subjective Interval history since last seen: Pt is doing well. no headaches. No CP or SOB. no productive cough. no dysuria. no leg pain or swelling. He is up walking around and tolerating soft diet. He is concerned b/c his rectum is sore. We d/w that bowels will be irregular for a while until his anal muscles are able to retrain and learn how to function properly. This area has not been working for the last 18 months but will eventually return to normal functioning. Although it may take some time. He can use heat for comfort. Be careful of blount. We discussed activity and the importance of walking and avoiding any heavy lifting. He can take stairs slowly as long as he is not dizzy. I Piper give him an oral Diflucan prior to discharge because he still has pretty significant redness around the ostomy site. Any can use nystatin cream twice daily until the redness goes away. He will follow-up with Dr. Quijano on Friday and she will decide the timing of the resumption of Plavix; not even sure if he is supposed to be on it. I will reach out to Dr. Guerra. We reviewed warning signs. We did talk extensively about diet if he has any questions he can call the office or contact the surgeon parts person. His discharge paperwork is complete. I did set him up for home PT evaluation. There is no dressing change that he needs to do. The rash on his back and torso seems to have resolved. Patient states he is not having any pain and does not even want a prescription for pain medications Exam Narrative Exam Narrative: PHYSICAL EXAM GENERAL APPEARANCE: Alert, healthy appearance, oriented, in no acute distress SKIN: No hyperpigmentation, vitiligo, or suspicious lesions No rashes. The rash on his back and torso has resolved. He has a significant amount of open comedones on his back. HYDRATION: Well hydrated HEAD, EYES, EARS, NECK, AND THROAT: Head is normocephalic, pupils equal, round, reactive to light and accommodation, ocular movement intact, sclera clear and no jaundice. Dentition intact. NECK: Supple, no lymphadenopathy. Trachea midline. LUNGS: normal respiration, clear to auscultation HEART: Regular rate and rhythm, EXTREMITY: No edema or cyanosis ABDOMEN: No hepatosplenomegaly, non tender to palpation, no masses or distention, no hernias. Normal bowel sounds incision is clean dry and intact. There is still some redness around the ostomy site. This is a mild fungal infection of the soft tissues. Patient denies any pruritus. NEURO: no focal neuro deficits. Objective Last Vital Signs Temp 37.5 C 03/05/20 12:02 Pulse 83 03/05/20 12:02 Resp 20 03/05/20 12:02 BP 122/78 03/05/20 12:02 Pulse Ox 95 03/05/20 12:02
--- NOTE | 2020-03-05 12:48 | W.PM.DSUDISC ---
Discharge Plan Disposition Patient Disposition: HOME Condition: Improving Discharge Details Reason For Visit: COLOSTOMY TAKEDOWN Admit Date/Time: 03/01/20 06:00 Admit Provider: Preciuos Quijano Attending Provider: Precious Quijano Primary Care Provider: Rolando Moise [facility] Course Hospital Course: Patient has a history of a ruptured diverticulum approximately 18 months ago. He underwent sigmoid resection resection and diverting ostomy on March 01 he came in for takedown and reanastomosis to his rectal stump. Please see operative note for details of procedure. Postoperatively he was kept in the ICU for observation for overnight. He had a epidural for pain control. This was DC'd on postop day #2. He had no wound infections, pneumonias, bleeding, DVTs and is done remarkably well with no complications. At the time of discharge she is tolerating a regular diet. His lungs are clear he is ambulatory he has no trouble urinating he has no signs of DVT. He is able been able to move his bowels. His pain is controlled with Tylenol only. He is discharged home with his significant other. We reviewed his discharge instructions. He will follow-up with Dr. Quijano on Friday. We will decide on when to resume his Plavix at that point. He will continue on a baby aspirin. He requires no further antibiotics. Please see his discharge instructions. Patient is discharged home in stable and satisfactory condition. Home Meds and New Rx's Prescriptions: New nystatin 100,000 unit/gram cream 1 applic topical BID Qty: 30 RF: 0 hydrocodone-acetaminophen [[place]] 5-325 mg tablet 1 tab PO Q6H PRNQty: 14 RF: 0 Continued metoprolol succinate 200 mg tablet extended release 24 hr 200 mg PO DAILY RF: 0 fluocinolone 0.01 % cream 1 applic topical BID RF: 0 Januvia 50 mg tablet 50 mg PO DAILY RF: 0 magnesium oxide 400 mg magnesium capsule 400 mg PO BID RF: 0 nitroglycerin [Nitrostat] 0.4 mg tablet, sublingual 0.4 mg sublingual Q5 MIN PRN X3 PRNRF: 0 tamsulosin 0.4 mg capsule 0.4 mg PO DAILY RF: 0 ondansetron HCl [Zofran] 4 mg tablet 4 mg PO ONCE Qty: 14 RF: 0 metformin 500 MG tablet 500 mg PO BID RF: 0 ibuprofen 200 MG capsule 600 - 800 mg PO PRN PRNRF: 0 aspirin [Aspir-Low] 81 MG tablet,delayed release (DR/EC) 81 mg PO DAILY RF: 0 lisinopril 20 MG tablet 20 mg PO DAILY RF: 0 atorvastatin [Lipitor] 40 MG tablet 40 mg PO QPM RF: 0 acetaminophen [Acetaminophen Extra Strength] 500 mg Tablet 1,000 mg PO Q8H PRNRF: 0 furosemide 40 mg tablet 40 mg PO DAILY RF: 0 cyanocobalamin (vitamin B-12) 1,000 mcg Tablet 1,000 mcg PO DAILY RF: 0 Discontinued neomycin 500 mg tablet 2 g PO BID Qty: 8 RF: 0 metronidazole 500 mg tablet 2,000 mg PO BID Qty: 8 RF: 0 bisacodyl [Dulcolax (bisacodyl)] 5 mg tablet,delayed release (DR/EC) 5 mg PO ONCE Qty: 8 RF: 0 polyethylene glycol 3350 17 gram powder in packet 255 g PO DAILY Qty: 15 RF: 0 clopidogrel [Plavix] 75 MG tablet 75 mg PO DAILY RF: 0 DuoDERM Hydroactive Paste 30 g topical BID Qty: 12 RF: 13 Discharge Instructions Instructions: Low Fiber Diet (GEN) Additional Instructions: Use ice for any discomfort or soreness and in the evenings and before bedtime. Ice keeps the swelling down and swelling causes pain. Make sure you wrap the ice pack in a towel and don't apply directly to the skin. -No driving x1 week or of you are taking pain medications. -If you have cyn or sutures in place, they will be removed at your clinic appointment in 7-10 days. -Follow-up with Dr. Quijano next Friday in clinic -Hold PLavix until F/u on Friday. Dr. Quijano will decide when to resume plavix. -soft diet: No beef/pork/ raw vegetables x1 -week. Cooked vegetables are fine. AVoid lots of breads/crakers & chips and raw fruit & vegy for 1 weeks time. -no straining to move bowels -pain meds are very constipating: if you do not move your bowels daily take a dose of OTC milk of magnesia -It is ok to shower. No bathe, soaking, swimming or hot tubs -Keep wound clean and dry. Wash incision with soap and water daily. Pat dry, don't rub. -use nystatin cream twice a day around ostomy site until redness goes away -wear abdominal binder for your comfort. -Protein supplements daily. You may find that your appetite is smaller. Eat 3-6 small meals throughout the day. It is important to drink lots of water after surgery, 6-10 glasses a day. -If you were given an incentive spirometry (breathing theatrical dresser?), continue to do this 10x/hour while awake. -We do want you up walking, at least 5-6 times per day. This is very important to prevent pneumonia and blood clots. You can climb stairs, take them slowly. -No lifting over 5 pounds. This is very important to avoid developing a hernia in your incision. -You may find that you are very tired after surgery- this is normal. 6-8 glasses of WATER a day Stand Alone Forms: Nursing Discharge Form Activity:: up walking 5-6x a day. no Equipment/Supplies:: No Equipment Needed Diet:: low fiber x 1 week Discharge Orders Discharge Orders: Discharge Order (Routine); Ordered 03/05/20 Ordered By: Marilyn López DS: Diagnosis Discharge Diagnosis (1) Status post colostomy takedown: Status: Acute (2) Type 2 diabetes mellitus: Status: Acute (3) Fatty liver: Status: Acute (4) Chronic kidney disease, stage 3: Status: Acute (5) Ischemic cardiomyopathy: Status: Acute (6) Anemia: Status: Chronic (7) Hearing impairment: Status: Acute (8) Diabetes: Status: Chronic (9) Diverticulitis of large intestine with abscess: Status: Acute
[2020-03-05] MEDS: Fluconazole 100 MG TAB PO (13:17)
== END 2020-03-05 13:23 | disposition home or self-care (01) | DRG 330 ==
LOC: PDS 10:07 → ICU 16:25 → PDS 03-02 09:57 → ICU 03-02 15:42 → PDS 03-03 12:33 → ICU 03-03 16:32 → MS 03-04 14:13
PROVIDERS: Admitting Provider Surgery; PCP Family Medicine; Visit Provider Surgery
PROC: 0DQM0ZZ Repair Descending Colon, Open Approach (ICD-10-PCS; CPT 44320; principal; 2020-03-01 09:00)
DX: Z43.3 Encounter for attention to colostomy (principal); I13.0 Hypertensive heart and chronic kidney disease with heart failure and stage 1 through stage 4 chronic kidney disease, or unspecified chronic kidney disease; D64.9 Anemia, unspecified; I25.10 Atherosclerotic heart disease of native coronary artery without angina pectoris; I50.9 Heart failure, unspecified; N18.30 Chronic kidney disease, stage 3 unspecified; E11.22 Type 2 diabetes mellitus with diabetic chronic kidney disease; K76.0 Fatty (change of) liver, not elsewhere classified; H91.90 Unspecified hearing loss, unspecified ear; E78.00 Pure hypercholesterolemia, unspecified; E83.42 Hypomagnesemia; I25.5 Ischemic cardiomyopathy; I25.2 Old myocardial infarction
CPT/HCPCS: 44620; 36415; 80048; 86850; 86900; 86901; 99232; 99239; J1650; NC; 83735; 85025; 88304; 94667; J0295; J1100; J1644; J2370; J2405; J2704; J3475; J3490

== ENCOUNTER → 2020-03-01 08:07 | Outpatient (BNVA) | payer MEDICARE, SELFPAY | PROVIDERS: PCP Family Medicine; Referring Provider Family Medicine; Visit Provider Surgery | DX: R69 Illness, unspecified (principal) ==

== ENCOUNTER → 2020-03-10 10:01 | Outpatient (BNVA) | payer MEDICARE, SELFPAY | PROVIDERS: PCP Family Medicine; Referring Provider Family Medicine; Visit Provider Surgery | DX: Z48.815 Encounter for surgical aftercare following surgery on the digestive system (principal); Z93.3 Colostomy status ==

== ENCOUNTER → 2020-03-14 12:50 | Outpatient (BNVA) | payer MEDICARE, SELFPAY | PROVIDERS: PCP Family Medicine; Referring Provider Family Medicine; Visit Provider Surgery | DX: Z51.89 Encounter for other specified aftercare (principal); L25.8 Unspecified contact dermatitis due to other agents; I13.0 Hypertensive heart and chronic kidney disease with heart failure and stage 1 through stage 4 chronic kidney disease, or unspecified chronic kidney disease; I50.9 Heart failure, unspecified; N18.30 Chronic kidney disease, stage 3 unspecified; E11.22 Type 2 diabetes mellitus with diabetic chronic kidney disease ==

== ENCOUNTER → 2020-03-17 10:50 | Outpatient (BNVA) | payer MEDICARE, SELFPAY | PROVIDERS: PCP Family Medicine; Referring Provider Family Medicine; Visit Provider Surgery | DX: T81.31XD Disruption of external operation (surgical) wound, not elsewhere classified, subsequent encounter (principal) ==

== ENCOUNTER 2020-03-22 09:58 | Emergency (ER) | payer MEDICARE, SELFPAY ==
[2020-03-22 10:05] VITALS: BP 155/136; PULSE 61; RESP 18; TEMP 36.4; O2SAT 94
--- NOTE | 2020-03-22 10:19 | W.ED.GENAD ---
Discharge Plan Disposition Patient Disposition: HOME Condition: Stable Discharge Details Clinical Impression: Atopic dermatitis Primary Care Provider: Rolando Moise ED Provider: Clementine Tirado Home Meds and New Rx's Prescriptions: New triamcinolone acetonide 0.1 % lotion 1 applic topical TID 7 Days Qty: 60 RF: 0 hydroxyzine HCl 25 mg tablet 25 mg PO BID PRN (Reason: itching) Qty: 10 RF: 0 Continued metoprolol succinate 200 mg tablet extended release 24 hr 200 mg PO DAILY RF: 0 fluocinolone 0.01 % cream 1 applic topical BID RF: 0 Januvia 50 mg tablet 50 mg PO DAILY RF: 0 magnesium oxide 400 mg magnesium capsule 400 mg PO BID RF: 0 nitroglycerin [Nitrostat] 0.4 mg tablet, sublingual 0.4 mg sublingual Q5 MIN PRN X3 PRNRF: 0 tamsulosin 0.4 mg capsule 0.4 mg PO DAILY RF: 0 ondansetron HCl [Zofran] 4 mg tablet 4 mg PO ONCE Qty: 14 RF: 0 metformin 500 MG tablet 500 mg PO BID RF: 0 ibuprofen 200 MG capsule 600 - 800 mg PO PRN PRNRF: 0 aspirin [Aspir-Low] 81 MG tablet,delayed release (DR/EC) 81 mg PO DAILY RF: 0 lisinopril 20 MG tablet 20 mg PO DAILY RF: 0 atorvastatin [Lipitor] 40 MG tablet 40 mg PO QPM RF: 0 acetaminophen [Acetaminophen Extra Strength] 500 mg Tablet 1,000 mg PO Q8H PRNRF: 0 furosemide 40 mg tablet 40 mg PO DAILY RF: 0 cyanocobalamin (vitamin B-12) 1,000 mcg Tablet 1,000 mcg PO DAILY RF: 0 nystatin 100,000 unit/gram cream 1 applic topical BID Qty: 30 RF: 0 Discharge Instructions Instructions: Dermatitis (ED) Additional Instructions: Use lotion three times a day and Hydroxyzine as needed for rash and itching. Follow up with dermatology . Follow up with primary care provider in 3-5 days. Return to ED sooner if any worsening or concerns. Increase oral fluids. [facility] No reviews ? Residency Coordinator [address] [place] [address] D[facility]atology [facility] Medical Office [address] [place] [address] PHONE [phone] FAX [phone] Referrals: Ashkan Eason MD [MD CONSULTING PHYSICIAN] - Rolando Moise [Primary Care Provider] - Discharge Data Discharge Date/Time-TO BE ENTERED AT DEPARTURE: 03/22/20 10:45 Medical Decision Making 84-year-old male presents to the ER chief complaint of generalized rash and itching. This is been chronic in nature. He reports began after surgery on March 01, he has had increased drying of the skin, cracking, and increased itching. Is on his lower anterior extremities, his hands, forearms, and back. Appears to be excoriations very dry skin. Denies any fever, or any other symptoms. He states trying Benadryl and some sort of cream in the past which has been little to no relief. Discussed plan of care with patient given hydroxyzine and tamsulosin 0.1% lotion here in department. Prescription given for both, instructed to use lotion 3 times a day as needed and hydroxyzine for itching. Referral placed for dermatology, given 3 different phone numbers for dermatology to follow-up. Patient placed on care management with for referral to dermatology to assess with him obtaining appointment. HPI General Mode of arrival: ambulatory. Date/Time Provider Initiated Documentation: 03/22/20 10:01. Limitations to Documentation: physical limitation (Hard of Hearing). Information obtained by: patient. HPI Narrative: 84-year-old male presents to the ER chief complaint of generalized rash and itching. This is been chronic in nature. He reports began after surgery on March 01, he has had increased drying of the skin, cracking, and increased itching. Is on his lower anterior extremities, his hands, forearms, and back. Appears to be excoriations very dry skin. Denies any fever, or any other symptoms. He states trying Benadryl and some sort of cream in the past which has been little to no relief. Related Data Home Medications Medication Instructions Recorded Confirmed metformin 500 mg PO BID 09/02/12 03/17/20 aspirin [Aspir-Low] 81 mg PO DAILY 09/05/15 03/17/20 ibuprofen 600 - 800 mg PO PRN PRN 09/05/15 03/17/20 lisinopril 20 mg PO DAILY 04/12/17 03/17/20 atorvastatin [Lipitor] 40 mg PO QPM 09/20/17 03/17/20 fluocinolone 0.01 % topical cream 1 applic TOPICAL BID 01/14/20 03/17/20 magnesium oxide 400 mg PO BID 01/14/20 03/17/20 metoprolol succinate 200 mg 200 mg PO DAILY 01/14/20 03/17/20 tablet,extended release 24 hr nitroglycerin 0.4 mg sublingual 0.4 mg SUBLINGUAL Q5 MIN PRN X3 PRN 01/14/20 03/17/20 tablet sitagliptin 50 mg tablet 50 mg PO DAILY 01/14/20 03/17/20 tamsulosin 0.4 mg capsule 0.4 mg PO DAILY 01/14/20 03/17/20 ondansetron HCl 4 mg tablet 4 mg PO ONCE #14 tab 02/28/20 03/17/20 acetaminophen [Acetaminophen Extra 1,000 mg PO Q8H PRN 02/29/20 03/17/20 Strength] cyanocobalamin (vitamin B-12) 1,000 mcg PO DAILY 03/01/20 03/17/20 furosemide 40 mg PO DAILY 03/01/20 03/17/20 nystatin 1 applic TOPICAL BID #30 g 03/05/20 03/17/20 hydroxyzine HCl 25 mg PO BID PRN #10 tab 03/22/20 triamcinolone acetonide 1 applic TOPICAL TID 7 Days #60 ml 03/22/20 Previous Rx's Medication Instructions Recorded ondansetron HCl 4 mg tablet 4 mg PO ONCE #14 tab 02/28/20 nystatin 1 applic TOPICAL BID #30 g 03/05/20 hydroxyzine HCl 25 mg PO BID PRN #10 tab 03/22/20 triamcinolone acetonide 1 applic TOPICAL TID 7 Days #60 ml 03/22/20 Allergies Allergy/AdvReac Type Severity Reaction Status Date / Time adhesive Allergy Severe significant Verified 03/22/20 10:15 skin reaction, swelling, erythema, discomfort General Stated Complaint: RashLesion ASTON: 4 Review of Systems Narrative: Constitutional: Negative for weight loss, alert and oriented, well groomed, normal body habitus, appears comfortable. HEENT: Denies trauma, headaches, blurry vision, nasal discharge, sore throat, trouble swallowing. Chest: Denies chest pain, palpitations, irregular rhythm, hypertension. Respiratory: Denies Shortness of breath, cough, hemoptysis. GI: Denies abdominal pain, nausea, vomiting, diarrhea, constipation. : Denies dysuria, hematuria, flank pain, rectal bleeding. Neuro: Denies dizziness, blurry vision, weakness, syncope, headache or facial numbness. Hematologic: Denies easy bruising, intolerance to heat or cold, hair loss. 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) CAD (coronary artery disease) CHF (congestive heart failure) Chronic kidney disease, stage 3 Diabetes mellitus Diverticulitis of large intestine with abscess Erectile dysfunction Fatty liver Hearing impairment HTN (hypertension) Hypercholesterolemia Hypomagnesemia Ischemic cardiomyopathy Mass of salivary gland Myocardial infarct Phimosis Phimosis (10/17/15) Renal insufficiency Skin lesion of scalp Type 2 diabetes mellitus Surgical History H/O phimosis s/p repair History of endovascular stent graft for abdominal aortic aneurysm (AAA) History of heart artery stent S/P hernia repair S/P left hemicolectomy (~07/19/18) Status post colostomy takedown (~03/01/20) Social History Smoking/Tobacco Use Status: Former Tobacco Use Quit Date: 01/03/17 Tobacco: How many years used: 60 Smoking risk assessment performed?: Yes Alcohol Intake: current Alcohol Intake frequency: 0-2 drinks per day Alcohol type: beer Drug use: Never Substance use type: does not use Do you feel safe at home: Yes Do you feel safe in your relationship?: Yes Exam Narrative Exam Narrative: Constitutional: Alert and oriented x3. Appears stated age. Normal body habitus. Head: Normocephalic, no trauma. Eyes: Pupils PERRLA, Red reflex noted, EOM's intact. Eyelids symmetrical without lesions, discharge, or swelling. ENT: Bilateral TM's WNL, External ear normal to inspection, no mastoid TTP, swelling, or erythema, Nasal turbinates WNL, no nasal discharge. Normal dentition, Posterior pharynx WNL, no exudate. Chest: RRR, Normal S1, S2, distal pulses intact. Resp: Lungs clear to auscultation bilaterally, no wheezes, rales, or rhonchi. Musculoskeletal: Normal gait, 5/5 strength to all four extremities. Skin: Capillary refill less than 2 sec. has generalized rash noted to the lower extremities, hands, forearms and back. Increased drying of skin. Appears to be excoriations, redness, no your urticaria or hives. Skin is cracked on the fingertip and palms. Neurologic: Cranial nerves II-XII intact. Alert and oriented x 3. DTR's intact. Hematologic/Lymphatic: No ecchymosis, no lymphadenopathy. Course Vital Signs Vital signs: Vital Signs Temperature 36.4 C L 03/22/20 10:05 Pulse 61 03/22/20 10:05 Respiratory Rate 18 03/22/20 10:05 Blood Pressure 155/136 H 03/22/20 10:05 Pulse Oximetry 94 03/22/20 10:05 Temperature 36.4 C L 03/22/20 10:05 Temperature Source Skin 03/22/20 10:05 Pulse 61 03/22/20 10:05 Respiratory Rate 18 03/22/20 10:05 Respiratory Effort Non-Labored 03/22/20 10:10 Blood Pressure 155/136 H 03/22/20 10:05 Blood Pressure Position Sitting 03/22/20 10:05 Pulse Oximetry 94 03/22/20 10:05 Oxygen Delivery Method Room Air 03/22/20 10:05 Oxygen Flow Rate 0 03/22/20 10:05
[2020-03-22] MEDS: hydrOXYzine HCL 25 MG TAB PO (10:30)
[2020-03-22] MEDS: Triamcinolone 0.1% CR 15 GM TUBE TP (10:41)
--- NOTE | 2020-03-22 11:09 | NUR.NOTE ---
Nursing Note: Referral faxed to PCP for follow up to Dermatology. Will also give to Care Management to be sure that it is scheduled. Nette Varela
--- NOTE | 2020-03-28 11:39 | PDOC.ERCMPRO ---
- If Service Date Differs Date of service: 03/28/20 Time of Service: 11:40 Care Management Progress Note At the request of ED provider, ELVIN follows up with Ovidio's PCP office, [facility], to ensure a follow up appointment is scheduled. ELVIN speaks with Rita, clinical care coordinator, who will outreach to Ovidio and will ensure appointment is offered. She will also offer coordinate a referral to dermatology, if it is still needed.
== END 2020-03-22 10:45 | disposition home or self-care (01) ==
LOC: ER 10:39
PROVIDERS: Emergency Provider Registered Nurse Emergency; PCP Family Medicine
DX: L20.89 Other atopic dermatitis (principal); I12.9 Hypertensive chronic kidney disease with stage 1 through stage 4 chronic kidney disease, or unspecified chronic kidney disease; N18.30 Chronic kidney disease, stage 3 unspecified; E11.9 Type 2 diabetes mellitus without complications; Z79.84 Long term (current) use of oral hypoglycemic drugs
CPT/HCPCS: 99283

== ENCOUNTER → 2020-03-24 11:07 | Outpatient (BNVA) | payer MEDICARE, SELFPAY | PROVIDERS: PCP Family Medicine; Referring Provider Family Medicine; Visit Provider Surgery | DX: Z51.89 Encounter for other specified aftercare (principal) ==

== ENCOUNTER → 2020-03-28 11:35 | Outpatient (BNVA) | payer MEDICARE, SELFPAY | PROVIDERS: PCP Family Medicine; Referring Provider Family Medicine; Visit Provider Surgery | DX: L20.89 Other atopic dermatitis (principal); T81.31XD Disruption of external operation (surgical) wound, not elsewhere classified, subsequent encounter; E11.22 Type 2 diabetes mellitus with diabetic chronic kidney disease; N18.30 Chronic kidney disease, stage 3 unspecified; I13.0 Hypertensive heart and chronic kidney disease with heart failure and stage 1 through stage 4 chronic kidney disease, or unspecified chronic kidney disease; I50.9 Heart failure, unspecified ==

== ENCOUNTER → 2020-04-11 11:31 | Outpatient (BNVA) | payer MEDICARE, SELFPAY | PROVIDERS: PCP Family Medicine; Referring Provider Family Medicine; Visit Provider Surgery | DX: T81.31XD Disruption of external operation (surgical) wound, not elsewhere classified, subsequent encounter (principal) | CPT/HCPCS: 99212 ==

== ENCOUNTER 2020-06-06 14:54 | Outpatient (REF) | payer MEDICARE, SELFPAY ==
[2020-06-06 13:35] LABS: HCT 46.5 % (40.0-50.0); HGB 14.8 g/dL (13.5-17.5); MCH 30.1 pg (27.0-33.0); MCHC 31.8 % (32.0-36.0); MCV 94.5 fL (80-95); Platelet Count 213 10^3/uL (130-400); RBC 4.92 10^6/uL (4.36-5.78); RDW 11.3 % (11.8-14.1); RDW-SD 39.3 fL; WBC 9.35 10^3/uL (4.4-10.8)
[2020-06-06 14:03] LABS: ALT 38 U/L (16-63); AST 22 U/L (15-37); Albumin 3.8 g/dL (3.4-5.0); Alkaline Phosphatase 123 U/L (46-116); Anion Gap 9.8 mmol/L (3-11); BUN 16 mg/dL (7-18); Bilirubin, Total 0.7 mg/dL (0.2-1.0); CO2 30.2 mmol/L (21.0-32.0); CREATININE 1.7 mg/dL (0.70-1.30); Calcium 9.3 mg/dL (8.5-10.1); Chloride 105 mmol/L (98-107); Estimated GFR 38.68 (mL/min/1.73m2); Glucose 231 mg/dL (74-106); Magnesium 1.7 mg/dL (1.8-2.4); PHOSPHORUS 3.3 mg/dL (2.6-4.7); Potassium 3.5 mmol/L (3.5-5.1); Sodium 145 mmol/L (136-145); Total Protein 7.4 g/dL (6.4-8.2)
[2020-06-06 14:07] LABS: Hemoglobin A1C 6.9 % (<5.7)
[2020-06-07 08:56] LABS: Parathyroid Hormone,Intact 105 pg/mL (19-88)
[2020-06-08 04:39] LABS: Vitamin D 25 Total 28.4 ng/ml (30-100)
== END 2020-06-06 14:55 | disposition home or self-care (01) ==
LOC: NCHCN 14:54
PROVIDERS: PCP Family Medicine; Visit Provider Family Medicine
DX: K76.0 Fatty (change of) liver, not elsewhere classified (principal); N18.30 Chronic kidney disease, stage 3 unspecified; E83.42 Hypomagnesemia; E11.9 Type 2 diabetes mellitus without complications
CPT/HCPCS: 80053; 82306; 85027; 83036; 83735; 83970; 84100

== ENCOUNTER 2020-11-07 01:49 | Emergency (ER) | payer MEDICARE, SELFPAY ==
[2020-11-07] VITALS (12 sets, daily range): BP systolic 122–172; BP diastolic 77–112; PULSE 78–148; RESP 17–22; TEMP 36.5; O2SAT 94–97
--- NOTE | 2020-11-07 01:45 | RT.EKG_ITS ---
APPROVED REPORT Exam: Resting ECG Reason for Exam: chest pain Patient Location: E HR:142 bpm ECG Measurements Heart Rate 142 AXIS [place] 100 P 89 QRSd 141 QRS 238 QT 363 T 264 QTc 557 Conclusion Extreme tachycardia with wide complex, no further rhythm analysis attempted Physician: Rate 142, sinus tachycardia, QRS is wide at 140, slight depression in V3 V4 V5 and V6. 1 mm elevation in aVR, Q waves in lead III and aVF, inverted T wave in lead III and aVF, terminal S wav e in lead I. The S wave, and Q waves appear unchanged from prior EKG on 02/03/2017. No evidence of S BRIANDA at this time.
--- NOTE | 2020-11-07 02:00 | DI.RAD_ITS ---
Exam(s) XR PORTABLE CHEST AP EXAM: XR PORTABLE CHEST AP CLINICAL HISTORY: sob TECHNIQUE: 2D digital imaging was performed. COMPARISON: CR XR PORTABLE CHEST AP POST LINE from 07/19/2018 FINDINGS: MEDIASTINUM: Normal. HEART: Normal. PULMONARY VASCULATURE: Normal. Ectasia and atherosclerosis of the thoracic aorta. LUNGS: Clear except for linear atelectasis in the lung bases. PLEURAL SPACE: No pleural effusion or pneumothorax. BONE:Within normal limits for the patient's age. OTHER FINDINGS:Normal. IMPRESSION: Bilateral basilar atelectasis. DATA REPOSITORY: RADIATION DOSE DELIVERED:
--- NOTE | 2020-11-07 02:09 | ED.GENADUL_ITS ---
Discharge Plan Disposition Patient Disposition: [facility] Condition: Serious Discharge Details Clinical Impression: Chest pain, Acute non-ST elevation myocardial infarction (NSTEMI) Primary Care Provider: Rolando Moise ED Provider: Ryan Stafford Home Meds and New Rx's Prescriptions: No Action metoprolol succinate 200 mg tablet extended release 24 hr 200 mg PO DAILY RF: 0 fluocinolone 0.01 % cream 1 applic topical BID RF: 0 Januvia 50 mg tablet 50 mg PO DAILY RF: 0 magnesium oxide 400 mg magnesium capsule 400 mg PO BID RF: 0 nitroglycerin [Nitrostat] 0.4 mg tablet, sublingual 0.4 mg sublingual Q5 MIN PRN X3 PRNRF: 0 tamsulosin 0.4 mg capsule 0.4 mg PO DAILY RF: 0 ondansetron HCl [Zofran] 4 mg tablet 4 mg PO ONCE Qty: 14 RF: 0 metformin 500 MG tablet 500 mg PO BID RF: 0 ibuprofen 200 MG capsule 600 - 800 mg PO PRN PRNRF: 0 aspirin [Aspir-Low] 81 MG tablet,delayed release (DR/EC) 81 mg PO DAILY RF: 0 lisinopril 20 MG tablet 20 mg PO DAILY RF: 0 atorvastatin [Lipitor] 40 MG tablet 40 mg PO QPM RF: 0 acetaminophen [Acetaminophen Extra Strength] 500 mg Tablet 1,000 mg PO Q8H PRNRF: 0 furosemide 40 mg tablet 40 mg PO DAILY RF: 0 cyanocobalamin (vitamin B-12) 1,000 mcg Tablet 1,000 mcg PO DAILY RF: 0 nystatin 100,000 unit/gram cream 1 applic topical BID Qty: 30 RF: 0 hydroxyzine HCl 25 mg tablet 25 mg PO BID PRN (Reason: itching) Qty: 10 RF: 0 Medical Decision Making 84-year-old male with a past medical history of a AAA, with endovascular stent graft, myocardial infarction with stent, diabetes CKD, CHF, ischemic cardiomyopathy, previous colectomy, high cholesterol, presents today for evaluation of shortness of breath and chest pain. Patient states that for the last 2 days he has had mild chest pain shortness of breath, notably pleuritic, and states that he feels like he just cannot get a deep breath at all. Symptoms continued into this evening, patient was notably restless and was not able to sleep tonight. He also admits to a tearing or ripping sensation in the chest. He states that this does not feel similar to his previous MA. Family does state that he takes aspirin. No other complaints at this time. No other modifying factors. Physical exam is relatively unremarkable. The patient is tachycardic, he appears to be sinus tach. No evidence of STEMI but there is notable strain with the appearance of depression in V4 through V6, as well as inverted T waves in the inferior leads, Q waves in the inferior leads, and a broad S wave in lead I. Differential is high for PE, ACS, less likely AAA worsening or dissection. We will rehydrate gently taking into account his history of ischemic cardiomyopathy. We will evaluate for these etiologies, monitor closely and reassess. 3:45 AM Laboratory work-up is returned, no white count, electrolytes normal, creatinine is 2.4, GFR is 26. proBNP is 522. Initial troponin is elevated at 0.08. Th yroid function good. Lipase normal. Portable chest x-ray shows evidence of questionable patchy opacity in the left lung base, no other abnormalities per virtual radiology. Mediastinum does appear wide to me though on review of chest x-ray however this appears similar to previous chest x-ray in the past. The patient was given 500-1000 mL bolus, and had no improvement of his heart rate. He remained somewhat hypertensive. Radial pulses and lower extremity pulses are equal throughout. The patient still does complain of 8 out of 10 chest pain, however he looks very comfortable. He still describes it as both pleuritic and a little bit of a tearing sensation in the upper chest. Exam history and complaints are certainly confounding. Made more challenging by the somewhat poor historian that the patient is. With evidence of heart strain and the slightly elevated troponin, I did do a portable limited bedside echo, he does have a cardiac fat pad but no large effusion. No signs of overt heart failure. Aorta is dilated on bedside limited echo. Because of the notably reduced renal function I do not feel that a CTA is appropriate. We will get a CT without contrast to evaluate for overt evidence of dissection or rupture or [place] hump/pulmonary infarct. [address] scan results show evidence of 3.8 cm aneurysmal dilatation of the ascending thoracic aorta, atelectasis in the lungs without infiltrate or pleural effusion. Previous abdominal aortic aneurysm with stent graft relatively unchanged. No other acute process. Without clear evidence of johan/severe dissection, I feel this is slightly less likely. Did contact our medicine reached out to cardiology. Discussed the case with . We debated the components of this mottled case. He does agree that the patient needs to come down here for formal VENICE for further assessment of the aorta and potential VQ scan for evaluation of pulmonary embolism. Since we have not been able to rule out dissection, especially with the patient's complaints, feel that heparinization would not be in the patient best interest. We he does recommend giving a full dose aspirin. We did give this. We did start a nitro drip and gave 2.5 of metoprolol to help manage his heart rate. Heart rate improved to the 80s/90s, chest pain slightly improved on nitro drip. Pressure stable. also did recommend getting a D-dimer which I feel is very reasonable. Recommendations were that if the D-dimer was negative then heparinization should be started, however if the D-dimer was over 500 and we would hold off on heparinization as there is still concern for dissection. Unfortunately the D- dimer is 4800. We will hold off on heparinization. The patient has been accepted for transfer to [facility] for further management and evaluation. I have extensively reviewed the treatment plan with the patient. I have addressed all patient concerns at this time. I have also discussed the plan with the admitting physician and they agree with the current assessment and plan and have agreed to assume responsibility for the patient. All parties demonstrate verbal understanding and agreement with our assessment and plan at this time. The documentation in this chart was dictated using rPath dictation software. Please excuse any dictation errors. At time of transfer the patient was reassessed and continued to demonstrate No signs of acute respiratory distress requiring intubation, hemodynamic instability requiring pressor support, or rapidly declining mental status. The patient is stable for transport. EKG 2: 00 Rate 142, sinus tachycardia, QRS is wide at 140, slight depression in V3 V4 V5 and V6. 1 mm elevation in aVR, Q waves in lead III and aVF, inverted T wave in lead III and aVF, terminal S wave in lead I. The S wave, and Q waves appear unchanged from prior EKG on 02/03/2017. No evidence of STEMI at this time. FINDINGS: Lungs: No alveolar or ground glass infiltrate. Bibasilar linear parenchymal sc arring or subsegmental collapse / atelectasis. Pleural spaces: No pleural fluid collection. No pneumothorax. Heart: Coronary artery and mitral valve annulus calcification. No pericardial effusion. Trace pericardial fluid. Aorta: Approximate 3.8 cm aneurysmal dilatation of the ascending thoracic aorta. Lymph nodes: No enlarged lymph nodes. Bones/joints: Spinal degenerative changes. Soft tissues: Unremarkable. IMPRESSION: 1. Approximate 3.8 cm aneurysmal dilatation of the ascending thoracic aorta. 2. Bibasilar linear parenchymal scarring or subsegmental collapse / atelectasis. 3. No pulmonary infiltrate. 4. No pleural fluid collection. IMPRESSION: 1. Previous stent graft repair of an abdominal aortic aneurysm with stent graft limbs in appropriate position. Compared to the prior CT abdomen/pelvis dated 07/18/2018, no significant interval change in aneurysmal dilatation of the caudal infrarenal abdominal aorta measuring 6.5 x 8.1 cm. 2. Scattered colon diverticuli without evidence of diverticulitis. 3. Otherwise, no acute intra-abdominal or pelvic process. Thank you for allowing us to participate in the care of your patient. Dictated and Authenticated by: Rosendo Neves MD 11/07/2020 4:23 AM Eastern Time ([place] & [place]) FINDINGS: Lungs: Patchy opacity at the left lung base may reflect atelectasis or pneumonia. Pleural spaces: Unremarkable. No pleural effusion. No pneumothorax. Heart/Mediastinum: Unremarkable. No cardiomegaly. Bones/joints: Unremarkable. IMPRESSION: Patchy opacity at the left lung base may reflect atelectasis or pneumonia. Thank you for allowing us to participate in the care of your patient. Dictated and Authenticated by: Winston Cadet MD 11/07/2020 2:42 AM Eastern Time ([place] & [place]) FINDINGS: Lungs: Patchy opacity at the left lung base may reflect atelectasis or pneumonia. Pleural spaces: Unremarkable. No pleural effusion. No pneumothorax. Heart/Mediastinum: Unremarkable. No cardiomegaly. Bones/joints: Unremarkable. IMPRESSION: Patchy opacity at the left lung base may reflect atelectasis or pneumonia. Thank you for allowing us to participate in the care of your patient. Dictated and Authenticated by: Winston Cadet MD 11/07/2020 2:42 AM Eastern Time ([place] & [place]) HPI General Date/Time Provider Initiated Documentation: 11/07/20 01:56 . HPI Narrative: 84-year-old male with a past medical history of a AAA, with endovascular stent graft, myocardial infarction with stent, diabetes CKD, CHF, ischemic cardiomyopathy, previous colectomy, high cholesterol, presents today for evaluation of shortness of breath and chest pain. Patient states that for the last 2 days he has had mild chest pain shortness of breath, notably pl euritic, and states that he feels like he just cannot get a deep breath at all. Symptoms continued into this evening, patient was notably restless and was not able to sleep tonight. He also admits to a tearing or ripping sensation in the chest. He states that this does not feel similar to his previous MA. Family does state that he takes aspirin. No other complaints at this time. No other modifying factors. Related Data Home Medications Medication Instructions Recorded Confirmed metformin 500 mg PO BID 09/02/12 11/07/20 aspirin [Aspir-Low] 81 mg PO DAILY 09/05/15 11/07/20 ibuprofen 600 - 800 mg PO PRN PRN 09/05/15 11/07/20 lisinopril 20 mg PO DAILY 04/12/17 11/07/20 atorvastatin [Lipitor] 40 mg PO QPM 09/20/17 11/07/20 fluocinolone 0.01 % topical cream 1 applic TOPICAL BID 01/14/20 04/11/20 magnesium oxide 400 mg PO BID 01/14/20 11/07/20 metoprolol succinate 200 mg 200 mg PO DAILY 01/14/20 04/11/20 tablet,extended release 24 hr nitroglycerin 0.4 mg sublingual 0.4 mg SUBLINGUAL Q5 MIN PRN X3 PRN 01/14/20 04/11/20 tablet sitagliptin 50 mg tablet 50 mg PO DAILY 01/14/20 11/07/20 tamsulosin 0.4 mg capsule 0.4 mg PO DAILY 01/14/20 11/07/20 ondansetron HCl 4 mg tablet 4 mg PO ONCE #14 tab 02/28/20 04/11/20 acetaminophen [Acetaminophen Extra 1,000 mg PO Q8H PRN 02/29/20 11/07/20 Strength] cyanocobalamin (vitamin B-12) 1,000 mcg PO DAILY 03/01/20 11/07/20 furosemide 40 mg PO DAILY 03/01/20 11/07/20 nystatin 1 applic TOPICAL BID #30 g 03/05/20 04/11/20 hydroxyzine HCl 25 mg PO BID PRN #10 tab 03/22/20 04/11/20 Previous Rx's Medication Instructions Recorded ondansetron HCl 4 mg tablet 4 mg PO ONCE #14 tab 02/28/20 nystatin 1 applic TOPICAL BID #30 g 03/05/20 hydroxyzine HCl 25 mg PO BID PRN #10 tab 03/22/20 Allergies Allergy/AdvReac Type Severity Reaction Status Date / Time adhesive Allergy Severe significant Verified 04/11/20 11:32 skin reaction, swelling, erythema, discomfort General Stated Complaint: Chest Pain ASTON: 2 Review of Systems All systems reviewed & are unremarkable except as noted in HPI and below PFSH Medical History AAA (abdominal aortic aneurysm) Anemia 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) CAD (coronary artery disease) CHF (congestive heart failure) Chronic kidney disease, stage 3 Diabetes mellitus Diverticulitis of large intestine with abscess Erectile dysfunction Fatty liver Hearing impairment HTN (hypertension) Hypercholesterolemia Hypomagnesemia Ischemic cardiomyopathy Mass of salivary gland Myocardial infarct Phimosis Phimosis (10/17/15) Renal insufficiency Skin lesion of scalp Type 2 diabetes mellitus Surgical History H/O phimosis s/p repair History of endovascular stent graft for abdominal aortic aneurysm (AAA) History of heart artery stent S/P hernia repair S/P left hemicolectomy (~07/19/18) Status post colostomy takedown (~03/01/20) Social History Smoking/Tobacco Use Status: Former Tobacco Use Quit Date: 01/03/17 Tobacco: How many years used: 60 Smoking risk assessment performed?: Yes Alcohol Intake: current Alcohol Intake frequency: 0-2 drinks per day Alcohol type: beer Drug use: Never Substance use type: does not use Do you feel safe at home: Yes Do you feel safe in your relationship?: Yes Exam Narrative Exam Narrative: 1.Const: Well-nourished, Well-developed, appearing stated age 2.Eyes: PERRL, no conjunctival injection, and symmetrical lids. 3.ENT: Atraumatic external nose and ears. Moist MM. Neck: Symmetric, trachea midline, No thyromegaly. 4.CVS: +S1/S2, No murmurs or gallops. Peripheral pulses 2+ and equal in all extremities. Brisk capillary refill in all extremities. 5.RESP: Unlabored respiratory effort. Clear to auscultation bilaterally. No wheezes rales or rhonchi 6.GI: Soft, Nontender/Nondistended, No hepatosplenomegaly. No guarding or rebound. 7.MSK: Normocephalic/Atraumatic, Extremities w/o deformity or ttp No cyanosis or clubbing, Normal movement of all extremities. No pitting edema 8.Skin: Warm, Dry. No rashes or lesions. 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 Sensation grossly intact, no focal neurologic deficits. 10.Psych: (AAO) x3. Appropriate mood and affect Course Vital Signs Vital signs: Vital Signs Temperature 36.5 C 11/07/20 01:55 Pulse 146 H 11/07/20 01:55 Respiratory Rate 20 11/07/20 01:55 Blood Pressure 172/112 H 11/07/20 01:55 Pulse Oximetry 97 11/07/20 01:55 Temperature 36.5 C 11/07/20 01:55 Temperature Source Skin 11/07/20 01:55 Pulse 146 H 11/07/20 01:55 Respiratory Rate 20 11/07/20 01:55 Blood Pressure 172/112 H 11/07/20 01:55 Blood Pressure Position Sitting 11/07/20 01:55 Pulse Oximetry 97 11/07/20 01:55 Oxygen Delivery Method Room Air 11/07/20 01:55 Oxygen Flow Rate 0 11/07/20 01:55 Pain Level 8 11/07/20 01:55 Critical Care Time Critical Care Time Critical Care Time: Yes Total Critical Care Time: 45 Attestation: Upon my evaluation, this patient had a high probability of imminent or life-threatening deterioration, which required my direct attention, intervention, and personal management. I have personally provided 45 minutes of critical care time exclusive of time spent on separately billable procedures. Time includes review of laboratory data, radiology results, discussion with co nsultants, and monitoring for potential decompensation. Interventions were performed as documented.
[2020-11-07 02:12] LABS: Abs Immature Grans 0.03 10^3/uL (0.0-0.06); Absolute Basophil Count 0.07 10^3/uL (0.0-0.2); Absolute Eosinophil Count 0.41 10^3/uL (0.0-0.7); Absolute Lymphocyte Count 2.57 10^3/uL (1.2-3.4); Absolute Monocyte Count 0.98 10^3/uL (0.1-0.8); Absolute Neutrophil Count 6.82 10^3/uL (1.2-6.7); Basophils % 0.6; Eosinophils % 3.8; HCT 50.1 % (40.0-50.0); HGB 16.5 g/dL (13.5-17.5); Immature Grans % 0.3; Lymphocytes % 23.6; MCH 30.7 pg (27.0-33.0); MCHC 32.9 % (32.0-36.0); MCV 93.1 fL (80-95); Neutrophils % 62.7; Nucleated RBC 0 %; Platelet Count 196 10^3/uL (130-400); RBC 5.38 10^6/uL (4.36-5.78); RDW 11.8 % (11.8-14.1); RDW-SD 40.1 fL; WBC 10.87 10^3/uL (4.4-10.8)
[2020-11-07] MEDS: Normal Saline 1,000 ML 1000 ML IV (02:21)
[2020-11-07 02:31] LABS: PTT Activated 20.3 sec (21.0-27.5); Prothrombin Time 9.9 sec (9.3-11.0)
[2020-11-07 02:33] LABS: ALT 71 U/L (16-63); AST 39 U/L (15-37); Albumin 3.9 g/dL (3.4-5.0); Alkaline Phosphatase 146 U/L (46-116); Anion Gap 10.1 mmol/L (3-11); BUN 27 mg/dL (7-18); Bilirubin, Total 0.9 mg/dL (0.2-1.0); CO2 26.9 mmol/L (21.0-32.0); CREATININE 2.4 mg/dL (0.70-1.30); Calcium 9.4 mg/dL (8.5-10.1); Chloride 100 mmol/L (98-107); Estimated GFR 25.98 (mL/min/1.73m2); Glucose 456 mg/dL (74-106); Lipase 213 U/L (73-393); NT-proBNP 522 pg/mL (<300); Sodium 137 mmol/L (136-145); TSH (W/Ref FT4) 1.75 uIU/mL (0.36-3.74); Total Protein 7.9 g/dL (6.4-8.2)
[2020-11-07 02:36] LABS: Troponin I 0.08 ng/mL (<0.06)
--- NOTE | 2020-11-07 02:43 | DI.VRAD_ITS ---
PROCEDURE INFORMATION: Exam: XR Chest Exam date and time: 11/07/2020 2:04 AM Age: 84 years old Clinical indication: Shortness of breath; Patient HX: SOB TECHNIQUE: Imaging protocol: XR of the chest. Views: 1 view. COMPARISON: CR XR PORTABLE CHEST AP POST LINE 07/19/2018 4:10 PM FINDINGS: Lungs: Patchy opacity at the left lung base may reflect atelectasis or pneumonia. Pleural spaces: Unremarkable. No pleural effusion. No pneumothorax. Heart/Mediastinum: Unremarkable. No cardiomegaly. Bones/joints: Unremarkable. IMPRESSION: Patchy opacity at the left lung base may reflect atelectasis or pneumonia. Dictated and Authenticated by: Winston Cadet MD. Ordering:ROSALIE Davis MD
--- NOTE | 2020-11-07 03:00 | DI.CT_ITS ---
Exam(s) CT CHEST/ABD/PEL WO EXAM: CT CHEST/ABD/PEL WO CLINICAL HISTORY: CP, LOW gfr, concern for PE/dissection/AAA TECHNIQUE: Imaging Protocol: Axial computed tomography images with coronal and sagittal reformatted images were created and reviewed CONTRAST MATERIAL: Imaging Protocol: Axial computed tomography images with coronal and sagittal refo rmatted images were created and reviewed. COMPARISON: CT CT ABDOMEN PELVIS W from 07/18/2018 FINDINGS: The examination is limited due to patient motion artifact. CHEST: Tracheobronchial tree: Patent where visualized. Mediastinum and Yudi: No dominant adenopathy or fluid collection. Pulmonary parenchyma: No mass. Bilateral basilar atelectasis or scarring. No architectural distorti on. Pleura: No effusion or pneumothorax. Heart: The heart is not dilated. Marked coronary artery calcification. Calcification of the mitral a nnulus. Aorta: 3.9 cm diameter of the ascending thoracic aorta. Moderate atherosclerosis. Lymph nodes: Within normal limits. Bones:Degenerative changes. Soft tissues: Mild gynecomastia bilaterally. ABDOMEN: Liver: Normal density. No measurable mass. Gallbladder and Biliary Tract: No radiodense calculus or dilation. Pancreas: Normal density, no abnormal calcifications or inflammatory process. Spleen: Normal. Adrenals: No masses seen. Kidneys: Normal size, contour and axis. No radiodense stones or obstructive uropathy. Stable bilatera l renal cysts. Stable calcification in the left kidney. Abdominal Aorta: There is again seen an infrarenal abdominal aortic aneurysm with endovascular stent in place. Moderately severe atherosclerosis is present. This show no significant change compared to the prior examination. Bowel: No obstruction or bowel wall thickening. No evidence of acute appendicitis. There is divertic ulosis of the colon. Postsurgical changes are seen in the sigmoid colon. Peritoneal Cavity: No ascites, collection or mesenteric inflammatory response. Lymph Nodes: Within normal limits. Bones: Multilevel degenerative changes are present. The findings are most marked in the lower lumbar spine. There is ankylosis of the sacroiliac joints. Soft Tissues: Unremarkable. PELVIS: Bladder: Symmetric distention, no gross wall thickening. Reproductive Organs: Unremarkable as visualized. Lymph Nodes: Within normal limits. Bones: Within normal limits. IMPRESSION: 1. No significant change of the abdominal aortic aneurysm or endovascular stent. 2. No acute abdominal or pelvic process. 3. Bilateral basilar atelectasis. No focal consolidation. RADIATION DOSE DELIVERED: 1,407.59mGy.cm Total DLP 1,407.59mGy.cm Total DLP DATA REPOSITORY: All CT scans at this facility are submitted to the National Radiology Data Registry (NRDR) Dose Index Registry (DIR) with the [employer] ([employer]). RADIATION OPTIMIZATION: All CT scans at this facility use at least one of these dose optimization te chniques: automated exposure control; mA and/or kV adjustment per patient size (includes targeted exa ms where dose is matched to clinical indication); or iterative reconstruction.
--- NOTE | 2020-11-07 04:23 | DI.VRAD_ITS ---
PROCEDURE INFORMATION: Exam: CT Chest Without Contrast; Diagnostic Exam date and time: 11/07/2020 3:06 AM Age: 84 years old Clinical indication: Chest pain, SOB; concern for PE, dissection, AAA. HX AAA. Prior surgery; AAA, colostomy, reverse colostomy; HX low gfr. TECHNIQUE: Imaging protocol: Diagnostic computed tomography of the chest without contrast. Radiation optimization: All CT scans at this facility use at least one of these dose optimization techniques: automated exposure control; mA and/or kV adjustment per patient size (includes targeted exams where dose is matched to clinical indication); or iterative reconstruction. COMPARISON: CT ABDOMEN PELVIS W 07/18/2018 8:40 AM FINDINGS: Lungs: No alveolar or ground glass infiltrate. Bibasilar linear parenchymal scarring or subsegmental collapse / atelectasis. Pleural spaces: No pleural fluid collection. No pneumothorax. Heart: Coronary artery and mitral valve annulus calcification. No pericardial effusion. Trace pericardial fluid. Aorta: Approximate 3.8 cm aneurysmal dilatation of the ascending thoracic aorta. Lymph nodes: No enlarged lymph nodes. Bones/joints: Spinal degenerative changes. Soft tissues: Unremarkable. IMPRESSION: 1. Approximate 3.8 cm aneurysmal dilatation of the ascending thoracic aorta. 2. Bibasilar linear parenchymal scarring or subsegmental collapse / atelectasis. 3. No pulmonary infiltrate. 4. No pleural fluid collection. PROCEDURE INFORMATION: Exam: CT Abdomen And Pelvis Without Contrast Exam date and time: 11/07/2020 3:06 AM Age: 84 years old Clinical indication: Chest pain, SOB; concern for PE, dissection, AAA. HX AAA. Prior surgery; AAA, colostomy, reverse colostomy; HX low gfr TECHNIQUE: Imaging protocol: Computed tomography of the abdomen and pelvis without contrast. Radiation optimization: All CT scans at this facility use at least one of these dose optimization techniques: automated exposure control; mA and/or kV adjustment per patient size (includes targeted exams where dose is matched to clinical indication); or iterative reconstruction. COMPARISON: CT ABDOMEN PELVIS W 07/18/2018 8:40 AM FINDINGS: Liver: Normal. No mass. Gallbladder and bile ducts: Normal. No calcified stones. No ductal dilation. Pancreas: Normal. No ductal dilation. Spleen: Normal. No splenomegaly. Adrenal glands: Normal. No mass. Kidneys and ureters: No hydronephrosis or perinephric fluid. Stable calcification inferior left kidney. Bilateral renal cortical. Stomach and bowel: No generalized ileus or bowel obstruction. Prior sigmoid colon surgery. Scattered colon diverticuli without evidence of diverticulitis. Appendix: No evidence of appendicitis. Intraperitoneal space: No free air. No significant fluid collection. Vasculature: Previous stent graft repair of an abdominal aortic aneurysm with stent graft limbs in appropriate position. Compared to the prior CT abdomen/pelvis dated 07/18/2018, no significant interval change in aneurysmal dilatation of the caudal infrarenal abdominal aorta measuring 6.5 x 8.1 cm. Lymph nodes: Unremarkable. No enlarged lymph nodes. Urinary bladder: Unremarkable as visualized. Reproductive: Unremarkable as visualized. Bones/joints: Spinal degenerative changes. Soft tissues: Unremarkable. IMPRESSION: 1. Previous stent graft repair of an abdominal aortic aneurysm with stent graft limbs in appropriate position. Compared to the prior CT abdomen/pelvis dated 07/18/2018, no significant interval change in aneurysmal dilatation of the caudal infrarenal abdominal aorta measuring 6.5 x 8.1 cm. 2. Scattered colon diverticuli without evidence of diverticulitis. 3. Otherwise, no acute intra-abdominal or pelvic process. Dictated and Authenticated by: Rosendo Neves MD. Ordering:ROSALIE Davis MD
[2020-11-07] MEDS: Metoprolol 5 MG/5 ML VIAL 2.5 MG IVP (04:38)
[2020-11-07] MEDS: Aspirin 325 MG TAB PO (04:38)
[2020-11-07 04:57] LABS: D-Dimer 4836 ng/mlFEU (<500)
[2020-11-07 05:39] LABS: Troponin I 0.06 ng/mL (<0.06)
== END 2020-11-07 05:32 | disposition short-term general hospital (02) ==
PROVIDERS: Emergency Provider Student in an Organized Health Care Education/Training Program; PCP Family Medicine
DX: I21.4 Non-ST elevation (NSTEMI) myocardial infarction (principal); I50.9 Heart failure, unspecified; E11.22 Type 2 diabetes mellitus with diabetic chronic kidney disease; I13.0 Hypertensive heart and chronic kidney disease with heart failure and stage 1 through stage 4 chronic kidney disease, or unspecified chronic kidney disease; N18.30 Chronic kidney disease, stage 3 unspecified; Z87.891 Personal history of nicotine dependence
CPT/HCPCS: 71250; 80053; 83690; 93005; 96361; 96365; 96376; 99291; 71045; 74176; 83880; 84443; 84484; 85025; 85379; 85610; 85730; 93010

== ENCOUNTER 2020-11-16 13:18 | Outpatient (REF) | payer MEDICARE, SELFPAY ==
[2020-11-16 14:10] LABS: Anion Gap 7.4 mmol/L (3-11); BUN 29 mg/dL (7-18); CO2 28.6 mmol/L (21.0-32.0); CREATININE 2.2 mg/dL (0.70-1.30); Calcium 9.7 mg/dL (8.5-10.1); Chloride 102 mmol/L (98-107); Estimated GFR 28.66 (mL/min/1.73m2); Glucose 340 mg/dL (74-106); Potassium 4.4 mmol/L (3.5-5.1); Sodium 138 mmol/L (136-145)
== END 2020-11-16 13:19 | disposition home or self-care (01) ==
LOC: NCHCN 13:18
PROVIDERS: PCP Family Medicine; Visit Provider Family Medicine
DX: I48.92 Unspecified atrial flutter (principal); E11.9 Type 2 diabetes mellitus without complications; I10 Essential (primary) hypertension
CPT/HCPCS: 80048

== ENCOUNTER → 2020-11-28 12:50 | Outpatient (BNVA) | payer MEDICARE, SELFPAY | PROVIDERS: PCP Family Medicine; Referring Provider Family Medicine; Visit Provider Internal Medicine Cardiovascular Disease | DX: I21.4 Non-ST elevation (NSTEMI) myocardial infarction (principal); I48.91 Unspecified atrial fibrillation; I25.10 Atherosclerotic heart disease of native coronary artery without angina pectoris; I25.5 Ischemic cardiomyopathy; E11.9 Type 2 diabetes mellitus without complications; Z95.5 Presence of coronary angioplasty implant and graft; Z98.890 Other specified postprocedural states | CPT/HCPCS: 93005; 99204; 99214 ==

== ENCOUNTER 2021-03-22 19:02 | Outpatient (REF) | payer MEDICARE, SELFPAY ==
[2021-03-22 17:18] LABS: ALT 40 U/L (16-63); AST 26 U/L (15-37); Albumin 3.9 g/dL (3.4-5.0); Alkaline Phosphatase 90 U/L (46-116); Anion Gap 10.4 mmol/L (3-11); BUN 30 mg/dL (7-18); Bilirubin, Total 0.7 mg/dL (0.2-1.0); CO2 26.6 mmol/L (21.0-32.0); CREATININE 2.4 mg/dL (0.70-1.30); Calcium 9.5 mg/dL (8.5-10.1); Chloride 110 mmol/L (98-107); Estimated GFR 25.92 (mL/min/1.73m2); Glucose 166 mg/dL (74-106); NT-proBNP 98 pg/mL (<300); Potassium 4.3 mmol/L (3.5-5.1); Sodium 147 mmol/L (136-145); Total Protein 7.2 g/dL (6.4-8.2)
== END 2021-03-22 19:03 | disposition home or self-care (01) ==
LOC: NCHCN 19:02
PROVIDERS: PCP Family Medicine; Visit Provider Nurse Practitioner
DX: N18.4 Chronic kidney disease, stage 4 (severe) (principal); R60.9 Edema, unspecified
CPT/HCPCS: 80053; 83880

== ENCOUNTER 2021-03-25 10:58 | Emergency (ER) | payer MEDICARE, SELFPAY ==
[2021-03-25 11:05] VITALS: BP 133/61; PULSE 72; RESP 16; TEMP 36.3; O2SAT 97
--- NOTE | 2021-03-25 11:32 | ED.GENADUL_ITS ---
Discharge Plan Disposition Patient Disposition: HOME Condition: Good Discharge Details Clinical Impression: Dermatitis Primary Care Provider: Rolando Moise ED Provider: Coby Oseguera [place] Meds and New Rx's Prescriptions: New triamcinolone acetonide 0.1 % cream 1 applic topical TID 7 Days Qty: 80 RF: 0 Continued lisinopril 5 mg tablet 5 mg PO DAILY RF: 0 apixaban 2.5 mg tablet 2.5 mg PO ONCE RF: 0 amiodarone 200 mg tablet 200 mg PO DAILY RF: 0 metoprolol succinate 50 mg tablet extended release 24 hr 50 mg PO DAILY RF: 0 tamsulosin 0.4 mg capsule 0.4 mg PO DAILY RF: 0 insulin lispro [Humalog KwikPen Insulin] 100 unit/mL insulin pen 6 unit subcut QACHS RF: 0 fluocinolone 0.01 % cream 1 applic topical BID RF: 0 Januvia 50 mg tablet 50 mg PO DAILY RF: 0 magnesium oxide 400 mg magnesium capsule 400 mg PO BID RF: 0 nitroglycerin [Nitrostat] 0.4 mg tablet, sublingual 0.4 mg sublingual Q5 MIN PRN X3 PRNRF: 0 ondansetron HCl [Zofran] 4 mg tablet 4 mg PO ONCE Qty: 14 RF: 0 Levemir FlexTouch U-100 Insuln 100 unit/mL (3 mL) insulin pen 24 unit subcut QPM RF: 0 amlodipine 5 mg tablet 5 mg PO DAILY RF: 0 ibuprofen 200 MG capsule 600 - 800 mg PO PRN PRNRF: 0 atorvastatin [Lipitor] 40 MG tablet 40 mg PO QPM RF: 0 acetaminophen [Acetaminophen Extra Strength] 500 mg Tablet 1,000 mg PO Q8H PRNRF: 0 furosemide 40 mg tablet 40 mg PO DAILY RF: 0 cyanocobalamin (vitamin B-12) 1,000 mcg Tablet 1,000 mcg PO DAILY RF: 0 nystatin 100,000 unit/gram cream 1 applic topical BID Qty: 30 RF: 0 hydroxyzine HCl 25 mg tablet 25 mg PO BID PRN (Reason: itching) Qty: 10 RF: 0 Discharge Instructions Instructions: Dermatitis (ED) Additional Instructions: It appears he has a recurrence of your rash, I am concerned that this may be a contact dermatitis. This may also be associated with the Himalayan salt, I recommend that you try to cut back on the salt is much as possible secondary to your lower extremity swelling and cardiac history. However, if you already use salt, please avoid the Himalayan salt that you began around the same time the rash started. I would like for you to follow-up with dermatology as previously recommended. I have asked our care management team to ensure that your referral is still in place. You may use the triamcinolone cream to help with itching and rash. This prescription has been sent to your pharmacy. Please follow-up as previously scheduled with Dr. Guerra. If you develop fever/chills, shortness of breath, difficulty breathing or the new/worsening symptoms please seek care urgently once again. Referrals: Rolando Moise [Primary Care Provider] - Medical Decision Making Patient is a pleasant 85-year-old female presenting today with chief complaint of rash. He has had similar rash on and off over the past few years years. They relate to him having had a few exposures to soap which caused irritation. He was here 1 year ago with the same. At which time he was treated with hydroxyzine and triamcinolone. States the past 2 weeks he has been having rash and itching to his bilateral lower extremities as well as his back. No fevers or chills. is concerned this may be associated with switching from iodized salt to Himalayan salt as it occurred around the same time. She reports that the patient uses patient a large amount of salt. Denies any shortness of breath. Denies any intraoral lesions. Denies any difficulty breathing. No GI upset. On exam, patient has urticarial rash to back and lower extremities. Very excoriated. As the patient was here almost exactly 1 year ago, we did discuss that this could also be going to something else. In particular, we discussed that he could be irritated by getting use of the pellet stove and having dry skin. I did encourage that they continue daily skin hydration. Patient does have a history of diabetes. She appears hemodynamically stable and nontoxic. I do not see any indication to suggest significant allergic reaction. I did encourage her to follow-up with dermatology. Patient has been referred to dermatology by both historically as well as his primary care. However, he states that he has not followed up with them. I have asked care management to ensure that this referral was still in place with can have follow-up. As he does have a history of diabetes, would like to hold off on oral steroids. He did do well last year with the triamcinolone cream, will replace this. Patient has not started amiodarone since being seen her last time we will hold off on repeating the hydroxyzine which she received last time. Return precautions were discussed. Advise follow-up with primary care, he states he has an appointment in 2 weeks. All the concerns were addressed and they are in agreement this plan. [facility] General Mode of arrival: ambulatory . Date/Time Provider Initiated Documentation: 03/25/21 11:00 . Limitations to Documentation: no limitations . Information obtained by: patient, family (signficant other) and RN notes reviewed . History of Present Illness 85 year old M presents to the emergency department with the chief complaint of rash, described as moderate and similar to prior episodes, Quality is described as other (itching), and is localized to the back, left, right and lower extremity. Patient reports no radiation. Patient started experiencing this week(s) and it has been constant. No relie ving factors improve symptom(s), No exacerbating factors reported . Patient notes no other symptoms.. Patient did receive the following treatments prior to arrival, none Related Data Home Medications Medication Instructions Recorded Confirmed ibuprofen 600 - 800 mg PO PRN PRN 09/05/15 11/28/20 atorvastatin [Lipitor] 40 mg PO QPM 09/20/17 03/25/21 fluocinolone 0.01 % topical cream 1 applic TOPICAL BID 01/14/20 03/25/21 magnesium oxide 400 mg PO BID 01/14/20 03/25/21 nitroglycerin 0.4 mg sublingual 0.4 mg SUBLINGUAL Q5 MIN PRN X3 PRN 01/14/20 03/25/21 tablet sitagliptin 50 mg tablet 50 mg PO DAILY 01/14/20 03/25/21 ondansetron HCl 4 mg tablet 4 mg PO ONCE #14 tab 02/28/20 11/28/20 acetaminophen [Acetaminophen Extra 1,000 mg PO Q8H PRN 02/29/20 11/28/20 Strength] cyanocobalamin (vitamin B-12) 1,000 mcg PO DAILY 03/01/20 03/25/21 furosemide 40 mg PO DAILY 03/01/20 03/25/21 nystatin 1 applic TOPICAL BID #30 g 03/05/20 11/28/20 hydroxyzine HCl 25 mg PO BID PRN #10 tab 03/22/20 03/25/21 amiodarone 200 mg tablet 200 mg PO DAILY 11/27/20 03/25/21 apixaban 2.5 mg tablet 2.5 mg PO ONCE 11/27/20 03/25/21 insulin lispro 100 unit/mL 6 unit SUBCUT QACHS 11/27/20 11/28/20 subcutaneous pen lisinopril 5 mg tablet 5 mg PO DAILY 11/27/20 03/25/21 metoprolol succinate 50 mg 50 mg PO DAILY 11/27/20 03/25/21 tablet,extended release 24 hr tamsulosin 0.4 mg capsule 0.4 mg PO DAILY 11/27/20 03/25/21 amlodipine 5 mg tablet 5 mg PO DAILY 02/12/21 03/25/21 insulin detemir U-100 100 unit/mL 24 unit SUBCUT QPM 02/12/21 03/25/21 (3 mL) subcutaneous pen triamcinolone acetonide 1 applic TOPICAL TID 7 Days #80 g 03/25/21 Previous Rx's Medication Instructions Recorded ondansetron HCl 4 mg tablet 4 mg PO ONCE #14 tab 02/28/20 nystatin 1 applic TOPICAL BID #30 g 03/05/20 hydroxyzine HCl 25 mg PO BID PRN #10 tab 03/22/20 triamcinolone acetonide 1 applic TOPICAL TID 7 Days #80 g 03/25/21 Allergies Allergy/AdvReac Type Severity Reaction Status Date / Time adhesive Allergy Severe significant Verified 03/25/21 11:10 skin reaction, swelling, erythema, discomfort General Stated Complaint: RashLesion ASTON: 4 Review of Systems Constitutional Constitutional: Reports as per HPI, Denies chills and Denies fever(s) ENT Ears, Nose, Mouth, and Throat: Denies sore throat and Denies throat swelling Cardiovascular Cardiovascular: Denies dyspnea on exertion Respiratory Respiratory: Denies dyspnea, Denies dyspnea on exertion and Denies wheezing Gastrointestinal Gastrointestinal: Denies abdominal pain Musculoskeletal Musculoskeletal: Reports as per HPI Integumentary/Breasts Skin/Breast: Reports as per HPI Neurologic Neurologic: Reports as per HPI Allergic/Immunologic Allergic/Immunologic: Denies throat swelling and Denies wheezing [facility] Medical History AAA (abdominal aortic aneurysm) Anemia 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) CAD (coronary artery disease) CHF (congestive heart failure) Chronic kidney disease, stage 3 Diabetes mellitus Diverticulitis of large intestine with abscess Erectile dysfunction Fatty liver Hearing impairment HTN (hypertension) Hypercholesterolemia Hypomagnesemia Ischemic cardiomyopathy Mass of salivary gland Myocardial infarct Phimosis Phimosis (10/17/15) Renal insufficiency Skin lesion of scalp Type 2 diabetes mellitus Surgical History H/O phimosis s/p repair History of endovascular stent graft for abdominal aortic aneurysm (AAA) History of heart artery stent S/P hernia repair S/P left hemicolectomy (~07/19/18) Status post colostomy takedown (~03/01/20) Social History Smoking/Tobacco Use Status: Former Tobacco Use Quit Date: 01/03/17 Tobacco: How many years used: 60 Smoking risk assessment performed?: Yes Alcohol Intake: current Alcohol Intake frequency: 0-2 drinks per day Alcohol type: beer Drug use: Never Substance use type: does not use Do you feel safe at home: Yes Do you feel safe in your relationship?: Yes Exam Const General: cooperative, healthy appearing, comfortable, no acute distress and well developed Nutritional Appearance: average body habitus and well nourished Orientation: alert and awake HENMT Face and sinus: normal facial exam Mouth: oral mucosae normal and lip normal Teeth and gingiva: dentition normal (dentures) Throat: posterior oropharynx normal Eyes General: appearance normal, both eyes and all related structures Resp Effort & Inspection: normal respiratory effort, able to speak in complete sentences and no respiratory distress Auscultation: clear to auscultation bilaterally and no wheezes Cardio Rate: regular rate Rhythm: regular rhythm Heart Sounds: S1 normal and S2 normal Back/Spine/Pelvis Back/spine/pelvis image: 1. Area of rash. Patient has raised pink rash consistent with urticaria. No pain, swelling or warmth. Skin Rashes: rashes noted (as above. Excoriations to BLE) Neuro General: patient alert and patient awake Cognition: normal cognition Speech: speech normal Gait: normal gait Sensory Exam: no sensory deficits noted Psych Appearance: grossly normal and well kempt Mental Status: mental status grossly normal Speech and Movement: speech and movement normal Course Vital Signs Vital signs: Vital Signs Temperature 36.3 C L 03/25/21 11:05 Pulse 72 03/25/21 11:05 Respiratory Rate 16 03/25/21 11:05 Blood Pressure 133/61 03/25/21 11:05 Pulse Oximetry 97 03/25/21 11:05 Temperature 36.3 C L 03/25/21 11:05 Temperature Source Skin 03/25/21 11:05 Pulse 72 03/25/21 11:05 Respiratory Rate 16 03/25/21 11:05 Blood Pressure 133/61 03/25/21 11:05 Blood Pressure Position Sitting 03/25/21 11:05 Pulse Oximetry 97 03/25/21 11:05 Oxygen Delivery Method Room Air 03/25/21 11:05 Oxygen Flow Rate 0 03/25/21 11:05 Pain Level 0 03/25/21 11:05 Comment 03/25/21 11:05
[2021-03-25 11:55] VITALS: BP 133/61; PULSE 72; RESP 16; TEMP 36.3; O2SAT 97
--- NOTE | 2021-03-25 18:27 | NUR.NOTE ---
referral to cm to review for prior referral dermatology
--- NOTE | 2021-03-26 10:38 | CMPROGNOTE_ITS ---
- If Service Date Differs Date of service: 03/26/21 Time of Service: 10:38 Care Management Progress Note Ovidio is seen in the ED for dermatitis. At the request of ED provider, CM coordinates a referral to [facility] Dermatology to assist Ovidio in obtaining a follow up appointment.
== END 2021-03-25 11:55 | disposition home or self-care (01) ==
PROVIDERS: Emergency Provider Physician Assistant; PCP Family Medicine
DX: L30.8 Other specified dermatitis (principal)
CPT/HCPCS: 99283

== ENCOUNTER 2021-04-04 17:23 | Outpatient (REF) | payer MEDICARE, SELFPAY ==
--- NOTE | 2021-04-04 16:00 | SKI_PTH ---
PATIENT: Cesar Thompson LOC: [facility] U#:[id number] AGE/SX: 85/M ROOM: RE04/04/[address]: Rolando Moise : 1935 BED: DIS: 04/04/2021 SPEC #: [id number] RECD: 04/05/21 12:33 STATUS: DINO SEBASTIAN #: [id number] DARY: 04/04/21 16:[address]: Rolando Moise DEPT: Surgical Specimen RECD BY: Dilma Barrios Tissues: 1 - SKIN BIOPSY(SHAVE/PUNCH) Procedures: SKIN LEVEL 4 Comments: [id number]
== END 2021-04-04 17:24 | disposition home or self-care (01) ==
LOC: NCHCN 17:23
PROVIDERS: PCP Family Medicine; Visit Provider Family Medicine
DX: L85.8 Other specified epidermal thickening (principal)
CPT/HCPCS: 88305

== ENCOUNTER 2021-05-29 12:42 | Outpatient (CLI) | payer MEDICARE, SELFPAY ==
--- NOTE | 2021-05-29 13:00 | RT.EKG_ITS ---
APPROVED REPORT Exam: Resting ECG Reason for Exam: afib Patient Location: O HR:53 bpm ECG Measurements Heart Rate 53 AXIS IL 272 P -21 QRSd 131 QRS 18 QT 478 T 30 QTc 449 Conclusion Sinus rhythm...normal P axis, V-rate 50- 99 Prolonged IL interval...IL >220, V-rate 50- 90 Nonspecific intraventricular conduction delay...QRSd >115mS, not LBBB/RBBB Baseline wander in lead(s) V1
== END 2021-05-29 12:43 | disposition home or self-care (01) ==
LOC: DI.CARD 13:11
PROVIDERS: PCP Family Medicine; Referring Provider Family Medicine; Visit Provider Internal Medicine Cardiovascular Disease
DX: I48.91 Unspecified atrial fibrillation (principal); R94.31 Abnormal electrocardiogram [ECG] [EKG]; I45.4 Nonspecific intraventricular block
CPT/HCPCS: 93010

== ENCOUNTER → 2021-05-29 12:42 | Outpatient (BNVA) | payer MEDICARE, SELFPAY | PROVIDERS: PCP Family Medicine; Referring Provider Family Medicine; Visit Provider Internal Medicine Cardiovascular Disease | DX: I48.91 Unspecified atrial fibrillation (principal); I10 Essential (primary) hypertension; I25.10 Atherosclerotic heart disease of native coronary artery without angina pectoris | CPT/HCPCS: 93005; 99213 ==

== ENCOUNTER 2021-08-08 01:08 | Outpatient (CLI) | payer MEDICARE, SELFPAY ==
--- NOTE | 2021-08-08 | DI.US_ITS ---
Exam(s) US RENAL EXAM: US RENAL CLINICAL HISTORY: CHRONIC KIDNEY DISEASE STAGE 4, N18.4 TECHNIQUE: Ultrasound of both kidneys performed using standard protocol. COMPARISON: CT CT ABDOMEN PELVIS W from 07/18/2018 FINDINGS: RIGHT KIDNEY: Measures 10.8 cm in length. No cysts evident. Normal cortical thickness and corticomedullary differen tiation .No solid masses No intrarenal calculi nor hydronephrosis. LEFT KIDNEY: Measures 10.9 cm in length. There is a 2.3 x 1.8 cm exophytic cyst off the inferior pole of the left kidney. Normal cortical thickness and corticomedullary differentiaion. No solids masses. No intrar enal calculi nor hydonephrosis. URINARY BLADDER: Prevoid volume is only 31 cc (therefore not adequately prepped for bladder study) IMPRESSION: 1. There is a benign 23 x 18 millimeter exophytic cyst off the inferior pole left kidney. 2. No solid renal masses, calculi, or hydronephrosis. I note that a small benign cyst was also evident in the mid cortex of the right kidney on the CT scan of July 2018. Apparently this was not seen on today's ultrasound examination. The amount of urine within the urinary bladder was only 31 cc, not enough for adequate bladder study DATA REPOSITORY:
== END 2021-08-08 01:28 ==
PROVIDERS: PCP Family Medicine; Visit Provider Family Medicine
DX: N18.4 Chronic kidney disease, stage 4 (severe) (principal); N28.1 Cyst of kidney, acquired
CPT/HCPCS: 76770

== ENCOUNTER 2021-08-16 02:30 | Outpatient (CLI) | payer MEDICARE, SELFPAY ==
[2021-08-16 13:59] LABS: HCT 42.5 % (40.0-50.0); HGB 13.7 g/dL (13.5-17.5); MCH 30.6 pg (27.0-33.0); MCHC 32.2 % (32.0-36.0); MCV 95.1 fL (80-95); Platelet Count 203 10^3/uL (130-400); RBC 4.47 10^6/uL (4.36-5.78); RDW-SD 42.4 fL; WBC 11.05 10^3/uL (4.4-10.8)
[2021-08-16 14:40] LABS: Hemoglobin A1C 6.6 % (<5.7)
[2021-08-16 14:54] LABS: ALT 37 U/L (16-63); AST 20 U/L (15-37); Albumin 3.6 g/dL (3.4-5.0); Alkaline Phosphatase 106 U/L (46-116); Anion Gap 8.9 mmol/L (3-11); BUN 33 mg/dL (7-18); Bilirubin, Total 0.4 mg/dL (0.2-1.0); CO2 29.1 mmol/L (21.0-32.0); CREATININE 2.8 mg/dL (0.70-1.30); Calcium 8.7 mg/dL (8.5-10.1); Chloride 105 mmol/L (98-107); Glucose 148 mg/dL (74-106); Magnesium 2.1 mg/dL (1.8-2.4); PHOSPHORUS 3.5 mg/dL (2.6-4.7); Potassium 4.5 mmol/L (3.5-5.1); Sodium 143 mmol/L (136-145); Total Protein 6.9 g/dL (6.4-8.2)
[2021-08-16 15:16] LABS: Vitamin D 25 Total 35.4 ng/mL (30-100)
[2021-08-20 11:35] LABS: Parathyroid Hormone,Intact 306 pg/mL (19-88)
== END 2021-08-16 02:31 | disposition home or self-care (01) ==
LOC: LBO 02:30
PROVIDERS: PCP Family Medicine; Visit Provider Family Medicine
DX: E11.9 Type 2 diabetes mellitus without complications (principal); N18.4 Chronic kidney disease, stage 4 (severe)
CPT/HCPCS: 36415; 80053; 82306; 85027; 83036; 83735; 83970; 84100

== ENCOUNTER 2021-10-05 22:30 | Observation (INO) | payer MEDICARE, SELFPAY ==
[2021-10-05] VITALS (16 sets, daily range): BP systolic 131–160; BP diastolic 57–85; PULSE 63–79; RESP 14–22; TEMP 36.5; O2SAT 93–96
--- NOTE | 2021-10-05 22:30 | RT.EKG_ITS ---
APPROVED REPORT Exam: Resting ECG Reason for Exam: chest pain Patient Location: E HR:74 bpm ECG Measurements Heart Rate 74 AXIS UT 276 P -32 QRSd 108 QRS 64 QT 424 T 27 QTc 469 Conclusion Sinus rhythm...normal P axis Prolonged UT interval.. Low voltage, extremity and precordial leads.
--- NOTE | 2021-10-05 22:45 | DI.RAD_ITS ---
Exam(s) XR PORTABLE CHEST AP EXAM: XR PORTABLE CHEST AP CLINICAL HISTORY: SOB. TECHNIQUE: 2D digital imaging was performed. COMPARISON: CR,XR XR PORTABLE CHEST AP from 11/07/2020 FINDINGS: Single AP portable view. Cardiomegaly again noted as well as a peripherally calcified somewhat tortuous descending thoracic ao rta, unchanged. No new mediastinal widening. No confluent infiltrates nor pleural effusions. However, there are mild increased interstitial lung markings bilaterally. IMPRESSION: Cardiomegaly. Atherosclerotic descending thoracic aorta.Interstitial lung changes, possibly chronic. No airspace pulmonary edema. No pleural effusions. DATA REPOSITORY: RADIATION DOSE DELIVERED: All CT scans at this facility use at least one of these dose optimization techniques: automated exposure control; mA and/or kV adjustment per patient size (includes targeted e xams where dose is matched to clinical indication); or iterative reconstruction.
[2021-10-05] MEDS: Furosemide 40 MG/4 ML VIAL IVP (22:56)
[2021-10-05 23:07] LABS: Abs Immature Grans 0.03 10^3/uL (0.0-0.06); Absolute Basophil Count 0.05 10^3/uL (0.0-0.2); Absolute Eosinophil Count 0.52 10^3/uL (0.0-0.7); Absolute Lymphocyte Count 2.64 10^3/uL (1.2-3.4); Absolute Monocyte Count 0.92 10^3/uL (0.1-0.8); Absolute Neutrophil Count 6.09 10^3/uL (1.2-6.7); Basophils % 0.5; Eosinophils % 5.1; HCT 45.6 % (40.0-50.0); HGB 14.7 g/dL (13.5-17.5); Immature Grans % 0.3; Lymphocytes % 25.8; MCH 29.8 pg (27.0-33.0); MCHC 32.2 % (32.0-36.0); MCV 93 fL (80-95); MPV 10.3 fL (8.0-11.0); Neutrophils % 59.3; Platelet Count 220 10^3/uL (130-400); RBC 4.93 10^6/uL (4.36-5.78); RDW 12.2 % (11.8-14.1); RDW-SD 41.4 fL; WBC 10.25 10^3/uL (4.4-10.8)
[2021-10-05 23:20] LABS: ALT 37 U/L (16-63); AST 22 U/L (15-37); Albumin 3.8 g/dL (3.4-5.0); Alkaline Phosphatase 132 U/L (46-116); Anion Gap 8.6 mmol/L (3-11); BUN 36 mg/dL (7-18); Bilirubin, Total 0.4 mg/dL (0.2-1.0); CO2 26.4 mmol/L (21.0-32.0); CREATININE 2.5 mg/dL (0.70-1.30); Calcium 9.3 mg/dL (8.5-10.1); Chloride 106 mmol/L (98-107); Estimated GFR 24.73 (mL/min/1.73m2); Glucose 121 mg/dL (74-106); Potassium 4.2 mmol/L (3.5-5.1); Sodium 141 mmol/L (136-145); Total Protein 7.9 g/dL (6.4-8.2); Troponin I < 50 ng/L (<or=60)
[2021-10-05 23:27] LABS: Magnesium 2.1 mg/dL (1.8-2.4); NT-proBNP 164 pg/mL (<300)
--- NOTE | 2021-10-05 23:41 | W.ED.GENAD ---
Discharge Plan Disposition Patient Disposition: [facility] INPATIENT Condition: Stable Discharge Details Chief Complaint: Chest Pain Clinical Impression: Atypical chest pain, Fluid overload Admit Date/Time: 10/06/21 01:41 Admit Provider: Bello Lassiter Attending Provider: Bello Lassiter Primary Care Provider: Rolando Moise ED Provider: Coby Oseguera Discharge Data Discharge Date/Time-TO BE ENTERED AT DEPARTURE: 10/06/21 02:19 Medical Decision Making Patient is a pleasant 85-year-old man presenting today with chief complaint of chest discomfort and shortness of breath. He is accompanied by family. States that he was lifting heavy buckets today which is atypical. No CP while lifting. However, after resting began to have CP a few hours later. Reports he has also had increasing BLE, an acute on chronic issue. concerned that his SOB became maximal when laying flat this evening. He denies having SOB prior. Had spicy sausage for dinner. Denies radiation of pain. No exertional sxs. PMH signficant for hypertension, CAD, atrial fibrillation, type 2 diabetes, CKD, ischemic cardiomyopathy. Patient is anticoagulated on apixaban, did take his dosing today. On exam, patient appears nontoxic. He is speaking in full sentences with no evidence of respiratory distress. He does have crackles at bilateral bases and significant bilateral lower extremity edema. I am concerned for CHF playing a role in his current presentation and will give IV Lasix. Normal cardiac auscultation, no murmurs, rubs or gallops. Intact distal pulses. Patients history is concerning for CHF, possible ACS, or muscle strain from lifting buckets. Primary concern for patient at this time is shortness of breath, particularly when laying flat. Will give 40mg IV Lasix, obain ECG, labs. Patient is anticoagulated, takes medications today. ECG reviewed by Dr. Sutherland. NSR, rate 74, no acute ischemic changes noted. Reevaluated patient, SOB improving but now having pain up toward the neck. This is along anterior aspect and is reproducible with palpation as well as movement. I believe this is associated with muscular discomfort from lifting from heavy lifting. Patient continues to be hypertensive. Given patient's history of ACS, will give 1 dose of nitroglycerin to see if this any any type of effect most of the blood pressure. Labs reviewed. No leukocytosis. Stable H&H. CMP significant for creatinine of 2.5 which is baseline for the patient. Alk phos elevated at 132, he has been elevated like this historically. Troponin within normal limits. Held patient FINDINGS: Lungs: There is diffuse mild nonspecific prominence of the pulmonary interstitium. This may represent chronic interstitial changes. Pleural spaces: There is no evidence of pneumothorax. There are no pleural effusions present. Heart/Mediastinum: The heart is enlarged. Vasculature: The aorta is tortuous and calcified. Bones/joints: The skeletal structures and soft tissues show no evidence of fracture or other acute processes. Soft tissues: The soft tissues of the extrathoracic region are unremarkable. Other findings: No definitive focal consolidative changes present. IMPRESSION: 1. No definitive active cardiopulmonary disease. 2. Cardiomegaly atherosclerotic peripheral vascular disease. 3. Probable chronic interstitial lung changes. Will obtain repeat troponin. Patient and significant other are hoping for more prompt disposition. Patient has elevated Heart score with his PMH. Feel that admission for observation and continued diuresis is appropriate. They are in agreement with the plan for admission for continued monitoring the setting of CHF exacerbation, chest discomfort. contact number [phone] Consulted with hospitalist who agrees to admission. [facility] General Date/Time Provider Initiated Documentation: 10/05/21 22:37. Limitations to Documentation: no limitations. Information obtained by: patient, family and RN notes reviewed. History of Present Illness 85 year old M presents to the emergency department with the chief complaint of shortness of breath, left shoulder pain, chest discomfort, described as moderate, Quality is described as aching, and is localized to the chest, left and upper extremity. Patient reports no radiation. Patient started experiencing this hour(s) and it has been constant. Immobilization improves symptom(s), Movement worsens symptoms (movement of extremities and deep breathing) . Patient notes chest pain and shortness of breath; denies cough, fever/chills, malaise, nausea/vomiting, rash and weakness. Related Data Home Medications Medication Instructions Recorded Confirmed ibuprofen 200 mg capsule 600 - 800 mg PO PRN PRN 09/05/15 05/29/21 atorvastatin 40 mg tablet (Lipitor) 40 mg PO QPM 09/20/17 10/05/21 fluocinolone 0.01 % topical cream 1 applic topical BID 01/14/20 10/05/21 magnesium oxide 400 mg PO BID 01/14/20 10/05/21 nitroglycerin 0.4 mg sublingual 0.4 mg sublingual Q5 MIN PRN X3 PRN 01/14/20 10/05/21 tablet (Nitrostat) acetaminophen 500 mg tablet 1,000 mg PO Q8H PRN 02/29/20 10/05/21 (Acetaminophen Extra Strength) cyanocobalamin (vitamin B-12) 1,000 mcg PO DAILY 03/01/20 10/05/21 1,000 mcg tablet furosemide 40 mg tablet 40 mg PO DAILY swelling 03/01/20 10/05/21 nystatin 100,000 unit/gram topical 1 applic topical BID #30 grams 03/05/20 05/29/21 cream amiodarone 200 mg tablet 200 mg PO DAILY 11/27/20 10/05/21 lisinopril 5 mg tablet 5 mg PO DAILY 11/27/20 10/05/21 metoprolol succinate 50 mg 50 mg PO DAILY 11/27/20 10/05/21 tablet,extended release 24 hr tamsulosin 0.4 mg capsule 0.4 mg PO DAILY 11/27/20 05/29/21 alogliptin 6.25 mg tablet 6.25 mg PO DAILY 05/31/21 10/05/21 amlodipine 5 mg tablet 10 mg PO DAILY 05/31/21 10/05/21 apixaban 2.5 mg tablet 2.5 mg PO BID 05/31/21 10/05/21 betamethasone dipropionate 0.05 % 1 applic topical BID PRN 05/31/21 10/05/21 topical cream cholecalciferol (vitamin D3) 25 25 mcg PO DAILY 05/31/21 10/05/21 mcg (1,000 unit) capsule insulin aspart U-100 100 unit/mL 9 unit subcut TID 05/31/21 10/05/21 subcutaneous solution (Novolog U-100 Insulin aspart) insulin detemir U-100 100 unit/mL 28 unit subcut DAILY 05/31/21 10/05/21 subcutaneous solution (Levemir U-100 Insulin) Previous Rx's Medication Instructions Recorded nystatin 100,000 unit/gram topical 1 applic topical BID #30 grams 03/05/20 cream Allergies Allergy/AdvReac Type Severity Reaction Status Date / Time adhesive Allergy Severe significant Verified 06/03/22 22:49 skin reaction, swelling, erythema, discomfort neomycin Allergy Unverified 10/05/21 22:49 General Stated Complaint: Chest Pain ASTON: 2 Review of Systems Constitutional Constitutional: Reports as per HPI, Denies chills, Denies fever(s), Denies headache(s) and Denies poor appetite ENT Ears, Nose, Mouth, and Throat: Denies dizziness and Denies headache(s) Cardiovascular Cardiovascular: Reports as per HPI Respiratory Respiratory: Reports as per HPI, Denies chest congestion and Denies cough Gastrointestinal Gastrointestinal: Reports as per HPI, Denies abdominal pain, Denies diarrhea, Denies nausea and Denies vomiting Genitourinary Genitourinary: Denies system reviewed and no additional complaints, except as documented (denies change in urinary habits) Musculoskeletal Musculoskeletal: Reports as per HPI and Denies back pain Integumentary/Breasts Skin/Breast: Reports as per HPI and Denies rash Neurologic Neurologic: Reports as per HPI, Denies dizziness and Denies headache(s) PFSH All Active Problems (Updated 10/07/21 @ 11:10 by QUINN Ramirez) Fluid overload (Acute) Atypical chest pain (Acute) HTN (hypertension) (Acute) CAD (coronary artery disease) (Chronic) Dermatitis (Acute) Atrial fibrillation (Chronic) Chest pain (Acute) Acute non-ST elevation myocardial infarction (NSTEMI) (Acute) Wound dehiscence, surgical (Acute) Type 2 diabetes mellitus (Chronic) Fatty liver (Acute) Chronic kidney disease, stage 3 (Chronic) Mass of salivary gland (Acute) Ischemic cardiomyopathy (Chronic) Skin lesion of scalp (Acute) Anemia (Chronic) Hearing impairment (Acute) Medical History AAA (abdominal aortic aneurysm) Atrial flutter Balanitis 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) CHF (congestive heart failure) Diabetes mellitus Diverticulitis of large intestine with abscess Edema Erectile dysfunction Former smoker Haworth's disease HLD (hyperlipidemia) Hypercholesterolemia Hypomagnesemia Myocardial infarct Phimosis Phimosis (10/17/15) Renal insufficiency Surgical History H/O phimosis s/p repair History of endovascular stent graft for abdominal aortic aneurysm (AAA) History of heart artery stent S/P hernia repair S/P left hemicolectomy (~07/19/18) Status post colostomy takedown (~03/01/20) Social History Smoking/Tobacco Use Status: Former Tobacco Use Quit Date: 01/03/17 Tobacco: How many years used: 60 Smoking risk assessment performed?: Yes Alcohol Intake: current Alcohol Intake frequency: 0-2 drinks per day Alcohol type: beer Drug use: Never Substance use type: does not use Do you feel safe at home: Yes Do you feel safe in your relationship?: Yes Exam Const General: cooperative, healthy appearing, comfortable, no acute distress and well developed Nutritional Appearance: average body habitus and well nourished Orientation: alert, awake and oriented x3 HENMT Head: normal to inspection Ears: hearing grossly normal bilaterally Mouth: moist mucous membranes Chest Chest: normal inspection of the chest, normal palpation of entire chest wall and no crepitus Resp Effort & Inspection: normal respiratory effort, able to speak in complete sentences and no respiratory distress Auscultation: crackles bilaterally at the base, no rales, no rhonchi and no wheezes Cardio Rate: regular rate Rhythm: regular rhythm Heart Sounds: S1 normal and S2 normal GI Inspection: normal to inspection, no edema and non-distended Palpation: soft, no hepatosplenomegaly, not firm, no guarding, not rigid and nontender Auscultation: normal bowel sounds Back/Spine/Pelvis Back: no CVA tenderness Thoracic/Lumbar Spine: thoracic and lumbar spine normal to inspection Skin General skin exam: no rashes or lesions noted Trauma: no lacerations or abrasions Neuro General: patient alert, patient awake and patient oriented x3 Cognition: normal cognition Speech: speech normal Gait: normal gait Extrem General: normal to inspection, capillary refill normal, no calf tenderness, normal gait and edema Laterality: bilateral Psych Appearance: grossly normal and well kempt Mental Status: mental status grossly normal Speech and Movement: speech and movement normal Course Vital Signs Vital signs: Vital Signs Temperature 36.5 C 10/05/21 22:38 Pulse 77 10/05/21 22:38 Respiratory Rate 22 10/05/21 22:38 Pulse Oximetry 94 10/05/21 22:38 Temperature 36.5 C 10/05/21 22:38 Temperature Source Skin 10/05/21 22:38 Pulse 66 10/05/21 23:16 Pulse 65 10/05/21 23:30 Respiratory Rate 18 10/05/21 23:30 Respiratory Effort 10/05/21 22:41 Respiratory Depth Normal 10/05/21 22:41 Respiratory Pattern Normal 10/05/21 22:41 Blood Pressure 160/71 H 10/05/21 23:16 Blood Pressure Mean 92 10/05/21 23:16 Blood Pressure Position Sitting 10/05/21 22:38 Pulse Oximetry 95 10/05/21 23:30 Oxygen Delivery Method Room Air 10/05/21 22:38 Oxygen Flow Rate 0 10/05/21 22:38 Pain Level 8 10/05/21 22:41 Lab/Test Results Lab/Test Results: Laboratory Tests Range/Units 10/05/21 10/05/21 10/05/21 22:52 22:52 22:52 WBC (4.4-10.8) 10^3/uL 10.25 RBC (4.36-5.78) 10^6/uL 4.93 Hgb (13.5-17.5) g/dL 14.7 Hct (40.0-50.0) % 45.6 MCV (80-95) fL 93 MCH (27.0-33.0) pg 29.8 MCHC (32.0-36.0) % 32.2 RDW (11.8-14.1) % 12.2 Plt Count (130-400) 10^3/uL 220 MPV (8.0-11.0) fL 10.3 Immature Gran % 0.3 Neutrophils % 59.3 Lymphocytes % 25.8 Monocytes % 9.0 Eosinophils % 5.1 Basophils % 0.5 Nucleated RBC % (0.0-0.3) % 0.0 Absolute Neutrophils (1.2-6.7) 10^3/uL 6.09 Absolute Lymphocytes (1.2-3.4) 10^3/uL 2.64 Absolute Monocytes (0.1-0.8) 10^3/uL 0.92 H Absolute Eosinophils (0.0-0.7) 10^3/uL 0.52 Absolute Basophils (0.0-0.2) 10^3/uL 0.05 Sodium (136-145) mmol/L 141 Potassium (3.5-5.1) mmol/L 4.2 Chloride (98-107) mmol/L 106 Carbon Dioxide (21.0-32.0) mmol/L 26.4 Anion Gap (3-11) mmol/L 8.6 BUN (7-18) mg/dL 36 H Creatinine (0.70-1.30) mg/dL 2.5 H Estimated GFR/1.73 m2 (mL/min/1.73m2) 24.73 Glucose (74-106) mg/dL 121 H Calcium (8.5-10.1) mg/dL 9.3 Magnesium (1.8-2.4) mg/dL 2.1 Total Bilirubin (0.2-1.0) mg/dL 0.4 AST (15-37) U/L 22 ALT (16-63) U/L 37 Alkaline Phosphatase (46-116) U/L 132 H Troponin I (<or=60) ng/L < 50 NT-Pro-B Natriuret Pep (<300) pg/mL 164 Total Protein (6.4-8.2) g/dL 7.9 Albumin (3.4-5.0) g/dL 3.8 PAWSS Have you Been Recently Intoxicated or Drunk Within the Last 30 days?: No Have you Ever Experienced Previous Episodes of Alcohol Withdrawal?: No Have you ever Experienced Withdrawal Seizures?: No Have you ever Experienced Delirium Tremens(DT)s?: No Have you ever undergone Alcohol Rehabilitation Treatment (i.e, inpt ot outpatient treatment programs)?: No Have you ever Experienced Blackouts?: No Have you ever Combined Alcohol with other Downers within the last 90 days?: No Have you ever Combined Alcohol with any other Substance of Abuse during the last 90 days?: No Positive Blood Alcohol level on Presentation? [PCS.BAL]: No Evidence of Increased Autonomic Activity (i.e. HR>120, tremor, sweating, agitation, nausea)?: No Result: 0
--- NOTE | 2021-10-05 23:45 | DI.VRAD_ITS ---
PROCEDURE INFORMATION: Exam: XR Chest Exam date and time: 10/05/2021 11:02 PM Age: 85 years old Clinical indication: Shortness of breath; Additional info: SOB TECHNIQUE: Imaging protocol: XR of the chest. Views: 1 view. COMPARISON: CT CHEST/ABD/PEL WO 11/07/2020 3:25 AM FINDINGS: Lungs: There is diffuse mild nonspecific prominence of the pulmonary interstitium. This may represent chronic interstitial changes. Pleural spaces: There is no evidence of pneumothorax. There are no pleural effusions present. Heart/Mediastinum: The heart is enlarged. Vasculature: The aorta is tortuous and calcified. Bones/joints: The skeletal structures and soft tissues show no evidence of fracture or other acute processes. Soft tissues: The soft tissues of the extrathoracic region are unremarkable. Other findings: No definitive focal consolidative changes present. IMPRESSION: 1. No definitive active cardiopulmonary disease. 2. Cardiomegaly atherosclerotic peripheral vascular disease. 3. Probable chronic interstitial lung changes. Dictated and Authenticated by: Gabriel Carbone MD. Ordering:KATHYA Tenorio MD
[2021-10-06] VITALS (37 sets, daily range): BP systolic 113–151; BP diastolic 63–90; PULSE 58–74; RESP 3–25; TEMP 36–36.9; O2SAT 91–96
[2021-10-06] MEDS: nitroGLYcerin 0.4 MG TAB SL (00:23)
--- NOTE | 2021-10-06 01:54 | HPE_ITS ---
Date of service: 10/06/21 Time of Service: 01:54 Assessment and Plan Assessment and plan (1) Atypical chest pain: Start date: 10/05/21 Status: Acute Assessment and plan: This is an 85-year-old woman who had exertion today that was unusual for him for physical activity. He had delayed onset of chest pain which is anterior chest wall and atypical of his angina pectoris past. He also was concerned about shortness of breath and did have increased soft with no today but chronically has peripheral edema and trouble breathing for which he takes an inhaler though this is not on his medication list. Patient is a vague historian and may be noncompliant with medical therapy. His initial troponin is negative and we will trend troponins overnight with cardiac monitoring because of his history of CAD. His chest pain did not respond to nitroglycerin sublingually and as it is not angina and doubt is ischemic event. Patient is a full code. (2) Ischemic cardiomyopathy: Status: Chronic Assessment and plan: BNP was normal with patient does have increased shortness of breath increased salt meal on the day of presentation. Because of his difficulty breathing which was one of the complaints had, IV Lasix twice daily with sedation. Monitor cardiac status with telemetry and trending troponins. There is no reason to repeat the BNP. (3) CAD (coronary artery disease): Status: Chronic Assessment and plan: Patient has ischemic cardiomyopathy and history of angina with presentation not typical for ischemic heart disease. Trend troponins and cardiac. Qualifiers: Coronary Disease-Associated Artery/Lesion type: [place] artery [place] vs. transplanted heart: [place] heart Associated angina: without angina Qualified Code(s): I25.10 - Atherosclerotic heart disease of [place] coronary artery without angina pectoris (4) Atrial fibrillation: Status: Chronic Assessment and plan: Cardiac monitoring and continue outpatient medical regimen with good rate control presently. (5) Type 2 diabetes mellitus: Status: Chronic Assessment and plan: Hold outpatient medical therapy and covered with short acting insulin check glucometers before meals and at bedtime. (6) Chronic kidney disease, stage 3: Status: Chronic Assessment and plan: Monitor for exacerbation while diuresing with IV Lasix. History of Present Illness History of Present Illness Chief Complaint: Chest pain after exertion Narrative: This is an 85-year-old male patient who presented to the ED after heavy days of work lifting buckets of water building a wall at home with his family. He was having chest discomfort over his front chest and this came on hours after he was through working. He was heparin problem breathing while laying flat but denies any chronic PND. He chronically has peripheral edema which he states is unchanged. This does not go down at night. The patient began to have chest pain after resting and after his activity and did not have exertional chest pain during his days work. In the ED he did receive nitroglycerin which did not help his chest pain and his chest pain was reproducible by pressing on his anterior chest wall. The patient is vague about his medical regimen as is his . Question of compliance. Does have chronic history of CAD with atrial fibrillation on Eliquis and CKD which appears stable. He also has type 2 diabetes mellitus and nonischemic cardiomyopathy. At the time I saw the patient he was comfortable and joking about his emergency room visit. He is a vague historian. Review of Systems Narrative: 13 point review of systems otherwise unrevealing or stable. PFSH All Active Problems (Updated 10/06/21 @ 02:05 by Bello Lassiter) Atypical chest pain (Acute) HTN (hypertension) (Acute) CAD (coronary artery disease) (Chronic) Dermatitis (Acute) Atrial fibrillation (Chronic) Chest pain (Acute) Acute non-ST elevation myocardial infarction (NSTEMI) (Acute) Wound dehiscence, surgical (Acute) Type 2 diabetes mellitus (Chronic) Fatty liver (Acute) Chronic kidney disease, stage 3 (Chronic) Mass of salivary gland (Acute) Ischemic cardiomyopathy (Chronic) Skin lesion of scalp (Acute) Anemia (Chronic) Hearing impairment (Acute) Medical History AAA (abdominal aortic aneurysm) Atrial flutter Balanitis 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) CHF (congestive heart failure) Diabetes mellitus Diverticulitis of large intestine with abscess Edema Erectile dysfunction Former smoker Cruz's disease HLD (hyperlipidemia) Hypercholesterolemia Hypomagnesemia Myocardial infarct Phimosis Phimosis (10/17/15) Renal insufficiency Surgical History H/O phimosis s/p repair History of endovascular stent graft for abdominal aortic aneurysm (AAA) History of heart artery stent S/P hernia repair S/P left hemicolectomy (~07/19/18) Status post colostomy takedown (~03/01/20) Social History Smoking/Tobacco Use Status: Former Tobacco Use Quit Date: 01/03/17 Tobacco: How many years used: 60 Smoking risk assessment performed?: Yes Alcohol Intake: current Alcohol Intake frequency: 0-2 drinks per day Alcohol type: beer Drug use: Never Substance use type: does not use Do you feel safe at home: Yes Do you feel safe in your relationship?: Yes Meds Allergies and Home Medications Allergies Allergy/AdvReac Type Severity Reaction Status Date / Time adhesive Allergy Severe significant Verified 10/05/21 22:49 skin reaction, swelling, erythema, discomfort neomycin Allergy Unverified 10/05/21 22:49 Home Medications Medication Instructions Recorded Confirmed Type ibuprofen 200 mg capsule 600 - 800 mg PO PRN PRN 09/05/15 05/29/21 History atorvastatin 40 mg tablet (Lipitor) 40 mg PO QPM 09/20/17 10/05/21 History fluocinolone 0.01 % topical cream 1 applic topical BID 01/14/20 10/05/21 History magnesium oxide 400 mg PO BID 01/14/20 10/05/21 History nitroglycerin 0.4 mg sublingual 0.4 mg sublingual Q5 MIN PRN X3 PRN 01/14/20 10/05/21 History tablet (Nitrostat) acetaminophen 500 mg tablet 1,000 mg PO Q8H PRN 02/29/20 10/05/21 History (Acetaminophen Extra Strength) cyanocobalamin (vitamin B-12) 1,000 mcg PO DAILY 03/01/20 10/05/21 History 1,000 mcg tablet furosemide 40 mg tablet 40 mg PO DAILY swelling 03/01/20 10/05/21 History nystatin 100,000 unit/gram topical 1 applic topical BID #30 grams 03/05/20 05/29/21 Rx cream amiodarone 200 mg tablet 200 mg PO DAILY 11/27/20 10/05/21 History lisinopril 5 mg tablet 5 mg PO DAILY 11/27/20 10/05/21 History metoprolol succinate 50 mg 50 mg PO DAILY 11/27/20 10/05/21 History tablet,extended release 24 hr tamsulosin 0.4 mg capsule 0.4 mg PO DAILY 11/27/20 05/29/21 History alogliptin 6.25 mg tablet 6.25 mg PO DAILY 05/31/21 10/05/21 History amlodipine 5 mg tablet 10 mg PO DAILY 05/31/21 10/05/21 History apixaban 2.5 mg tablet 2.5 mg PO BID 05/31/21 10/05/21 History betamethasone dipropionate 0.05 % 1 applic topical BID PRN 05/31/21 10/05/21 History topical cream cholecalciferol (vitamin D3) 25 25 mcg PO DAILY 05/31/21 10/05/21 History mcg (1,000 unit) capsule insulin aspart U-100 100 unit/mL 9 unit subcut TID 05/31/21 10/05/21 History subcutaneous solution (Novolog U-100 Insulin aspart) insulin detemir U-100 100 unit/mL 28 unit subcut DAILY 05/31/21 10/05/21 History subcutaneous solution (Levemir U-100 Insulin) Exam Narrative Exam Narrative: General: Patient appears appropriate for age, moderately obese and in no acute distress. He is alert and oriented obese to person and place. HEENT: Normocephalic, eyes with pupils equal and reactive light symmetrically, extraocular movement intact and sclera anicteric. Oropharynx with dry mucosa and denture plates above and below. Neck: Supple without JVD. Back: Kyphotic posture without CVA tenderness. Lungs: Bronchovesicular breath sounds diffusely with expiratory wheeze and increased expiratory phase but no expiratory localizing rales. Occasional coar se crackle. No rhonchi. No intercostal retractions with inspiration. Symmetrical chest wall movement with breathing. Heart: Irregular rhythm with normal rate. No appreciable murmur or gallop with distant heart sounds. Abdomen: Obese contour and quite protuberant but soft no guarding or rebound. No palpable hepatosplenomegaly. Genitalia/rectal: Exam deferred. Extremities: 3+ pitting edema both lower extremities appears chronic with chronic skin changes including shiny atrophic skin and loss of hair. No open ulcerations noted. Fair capillary refill. No clubbing or cyanosis. All joints have fair range of motion but arthritic changes evident. Crepitus with range of motion of the knees. Skin: Pale, warm and dry. Neuro: Cranial nerves II through XII gross intact, no focal motor deficits. Psych: Normal mood and affect. No abnormal thought processes. Remote memory intact with recent memory less intact. Results Imaging Imaging Studies: Exam: XR Chest Exam date and time: 10/05/2021 11:02 PM Age: 85 years old Clinical indication: Shortness of breath; Additional info: SOB TECHNIQUE: Imaging protocol: XR of the chest. Views: 1 view. COMPARISON: CT CHEST/ABD/PEL WO 11/07/2020 3:25 AM FINDINGS: Lungs: There is diffuse mild nonspecific prominence of the pulmonary interstitium. This may represent chronic interstitial changes. Pleural spaces: There is no evidence of pneumothorax. There are no pleural effusions present. Heart/Mediastinum: The heart is enlarged. Vasculature: The aorta is tortuous and calcified. Bones/joints: The skeletal structures and soft tissues show no evidence of fracture or other acute processes. Soft tissues: The soft tissues of the extrathoracic region are unremarkable. Other findings: No definitive focal consolidative changes present. IMPRESSION: 1. No definitive active cardiopulmonary disease. 2. Cardiomegaly atherosclerotic peripheral vascular disease. 3. Probable chronic interstitial lung changes. Labs Result diagrams: 10/05/21 22:52 10/05/21 22:52 Labs: Laboratory Results - last 24 hr 10/05/21 10/05/21 10/05/21 22:52 22:52 22:52 WBC 10.25 RBC 4.93 Hgb 14.7 Hct 45.6 MCV 93 MCH 29.8 MCHC 32.2 RDW 12.2 Plt Count 220 MPV 10.3 Immature Gran % 0.3 Neutrophils % 59.3 Lymphocytes % 25.8 Monocytes % 9.0 Eosinophils % 5.1 Basophils % 0.5 Nucleated RBC % 0.0 Absolute Neutrophils 6.09 Absolute Lymphocytes 2.64 Absolute Monocytes 0.92 H Absolute Eosinophils 0.52 Absolute Basophils 0.05 Sodium 141 Potassium 4.2 Chloride 106 Carbon Dioxide 26.4 Anion Gap 8.6 BUN 36 H Creatinine 2.5 H Estimated GFR/1.73 m2 24.73 Glucose 121 H Calcium 9.3 Magnesium 2.1 Total Bilirubin 0.4 AST 22 ALT 37 Alkaline Phosphatase 132 H Troponin I < 50 NT-Pro-B Natriuret Pep 164 Total Protein 7.9 Albumin 3.8 Last Vital Signs Temp 36.5 C 10/05/21 22:38 Pulse 66 10/06/21 00:16 Resp 24 10/06/21 00:20 BP 151/70 H 10/06/21 00:16 Pulse Ox 95 10/06/21 00:20 PAWSS Have you Been Recently Intoxicated or Drunk Within the Last 30 days?: No Have you Ever Experienced Previous Episodes of Alcohol Withdrawal?: No Have you ever Experienced Withdrawal Seizures?: No Have you ever Experienced Delirium Tremens(DT)s?: No Have you ever undergone Alcohol Rehabilitation Treatment (i.e, inpt ot outpatient treatment programs)?: No Have you ever Experienced Blackouts?: No Have you ever Combined Alcohol with other Downers within the last 90 days?: No Have you ever Combined Alcohol with any other Substance of Abuse during the last 90 days?: No Positive Blood Alcohol level on Presentation? [PCS.BAL]: No Evidence of Increased Autonomic Activity (i.e. HR>120, tremor, sweating, agitation, nausea)?: No Result: 0
[2021-10-06 02:19] LABS: Source Nasal/Nares
[2021-10-06 02:23] LABS: Abs Immature Grans 0.05 10^3/uL (0.0-0.06); Absolute Basophil Count 0.07 10^3/uL (0.0-0.2); Basophils % 0.4; Eosinophils % 2.5; HCT 42.7 % (40.0-50.0); HGB 13.9 g/dL (13.5-17.5); Immature Grans % 0.3; MCH 30.4 pg (27.0-33.0); MCHC 32.6 % (32.0-36.0); MCV 93 fL (80-95); Monocytes % 8.1; Neutrophils % 76.7; Platelet Count 219 10^3/uL (130-400); RBC 4.57 10^6/uL (4.36-5.78); RDW 12.1 % (11.8-14.1); RDW-SD 41.7 fL; WBC 17.36 10^3/uL (4.4-10.8)
[2021-10-06 02:25] LABS: Absolute Eosinophil Count 0.43 10^3/uL (0.0-0.7); Absolute Lymphocyte Count 2.08 10^3/uL (1.2-3.4); Absolute Monocyte Count 1.41 10^3/uL (0.1-0.8); Absolute Neutrophil Count 13.32 10^3/uL (1.2-6.7)
[2021-10-06 02:41] LABS: ALT 32 U/L (16-63); AST 20 U/L (15-37); Albumin 3.6 g/dL (3.4-5.0); Alkaline Phosphatase 126 U/L (46-116); Anion Gap 8.7 mmol/L (3-11); BUN 38 mg/dL (7-18); Bilirubin, Total 0.5 mg/dL (0.2-1.0); CO2 25.3 mmol/L (21.0-32.0); CREATININE 2.5 mg/dL (0.70-1.30); Calcium 8.8 mg/dL (8.5-10.1); Chloride 105 mmol/L (98-107); Estimated GFR 24.73 (mL/min/1.73m2); Glucose 173 mg/dL (74-106); Potassium 3.9 mmol/L (3.5-5.1); Sodium 139 mmol/L (136-145); Total Protein 7.4 g/dL (6.4-8.2)
[2021-10-06 02:51] LABS: TSH (W/Ref FT4) 2.41 uIU/mL (0.36-3.74); Troponin I < 50 ng/L (<or=60)
[2021-10-06 03:10] LABS: COVID-19 PCR Negative (Negative)
[2021-10-06] MEDS: Acetaminophen 325 MG TAB 650 MG PO ×4 (04:16→19:27)
[2021-10-06 06:57] LABS: Troponin I < 50 ng/L (<or=60)
[2021-10-06] MEDS: Albuterol/Ipratropium 3 ML UPD VIAL UPD ×3 (07:30→19:21)
[2021-10-06 07:54] LABS: Abs Immature Grans 0.05 10^3/uL (0.0-0.06); Absolute Basophil Count 0.06 10^3/uL (0.0-0.2); Absolute Eosinophil Count 0.45 10^3/uL (0.0-0.7); Absolute Monocyte Count 1.25 10^3/uL (0.1-0.8); Basophils % 0.4; Eosinophils % 2.9; HCT 43.3 % (40.0-50.0); HGB 14.1 g/dL (13.5-17.5); Immature Grans % 0.3; Lymphocytes % 14.8; MCH 30.2 pg (27.0-33.0); MCHC 32.6 % (32.0-36.0); MCV 93 fL (80-95); MPV 10.5 fL (8.0-11.0); Monocytes % 8.1; Neutrophils % 73.5; Platelet Count 202 10^3/uL (130-400); RBC 4.67 10^6/uL (4.36-5.78); RDW 12.2 % (11.8-14.1); RDW-SD 41.9 fL; WBC 15.38 10^3/uL (4.4-10.8)
[2021-10-06 08:01] LABS: C-Reactive Protein 0.09 mg/dL (0.0-0.3)
[2021-10-06 08:02] LABS: Absolute Lymphocyte Count 2.28 10^3/uL (1.2-3.4)
[2021-10-06] MEDS: Metoprolol CR 50 MG TABCR PO (08:05)
[2021-10-06] MEDS: Apixaban 2.5 MG TAB PO ×2 (08:05→19:27)
[2021-10-06] MEDS: amLODIPine 5 MG TAB 10 MG PO (08:05)
[2021-10-06] MEDS: Normal Saline Flush 10 ML SYR IVP ×2 (08:05→19:28)
[2021-10-06] MEDS: Furosemide 40 MG/4 ML VIAL IVP ×2 (08:05→16:04)
[2021-10-06] MEDS: Lisinopril 5 MG TAB PO (08:06)
[2021-10-06] MEDS: Amiodarone 200 MG TAB PO (08:06)
[2021-10-06] MEDS: Magnesium Oxide 400 MG TAB PO ×2 (08:06→19:28)
[2021-10-06 08:32] LABS: Procalcitonin 0.1 ng/mL
--- NOTE | 2021-10-06 08:45 | INITIAL_ITS ---
- If Service Date Differs Date of service: 10/06/21 Time of Service: 08:45 Care Management Initial Assess REASON FOR HOSPITALIZATION:: atypical chest pain PAST MEDICAL HISTORY/PAST SURGICAL HISTORY:: All Active Problems (Updated 10/06/21 @ 02:05 by Bello Lassiter). Atypical chest pain (Acute). HTN (hypertension) (Acute). CAD (coronary artery disease) (Chronic). Dermatitis (Acute). Atrial fibrillation (Chronic). Chest pain (Acute). Acute non-ST [place] myocardial infarction (NSTEMI) (Acute). Wound dehiscence, surgical (Acute). Type 2 diabetes mellitus (Chronic). Fatty liver (Acute). Chronic kidney disease, stage 3 (Chronic). Mass of salivary gland (Acute). Ischemic cardiomyopathy (Chronic). Skin lesion of scalp (Acute). Anemia (Chronic). Hearing impairment (Acute). Medical History . AAA (abdominal aortic aneurysm). Atrial flutter. Balanitis. 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). CHF (congestive heart failure). Diabetes mellitus. Diverticulitis of large intestine with abscess. Edema. Erectile dysfunction. Former smoker. Cruz's disease. HLD (hyperlipidemia). Hypercholesterolemia. Hypomagnesemia. Myocardial infarct. Phimosis. Phimosis (10/17/15). Renal insufficiency. Surgical History . H/O phimosis. s/p repair. History of endovascular stent graft for abdominal aortic aneurysm (AAA). History of heart artery stent. S/P hernia repair. S/P left hemicolectomy (~07/19/18). Status post colostomy takedown (~03/01/20) PREVIOUS FUNCTIONAL STATUS/SOCIAL/FAMILY SUPPORTS:: Cesar lives in a single family home in [facility] with his significant other Montse De Anda. Ovidio has 4 children, three daughters and a son. One of his daughters livews in [place]. She is the only child he maintains a relationship with. Ovidio has a cane and a walker at home for ambulatory assistance. 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 He is independent at baseline. CURRENT FUNCTIONAL STATUS:: Ovidio was sitting up on the side of the bed when CM met with him. He was polite and agreeable to conversation. Ovidio was admitted with atypical chest pain which followed a day of heavy lifting while building a stone wall. Serial troponins were negative and per provider, the pain is likely musculoskeletal. ADVANCE DIRECTIVES:: none on file Has patient been provided with info about the portal/API?: Yes Did the patient sign up for the portal?: No CODE STATUS:: Full Code INSURANCE COVERAGE / FINANCIAL ISSUES:: Medicare. [facility] [employer] CURRENT HOME/COMMUNITY SERVICES/EQUIPMENT:: cane and a walker PRIMARY CARE PHYSICIAN:: Rolando Moise POTENTIAL DISCHARGE NEEDS:: follow up with PCP and plan of care PATIENT/FAMILY EDUCATION NEEDS:: Review of discharge instructions, medications, limitations, activity. follow up plan; discuss [employer] TRANSPORTATION:: via privare vehicle with family PLAN:: Cesar will likely be discharged home with no new services. He will follow up with his PCP and plan of care and transport with family. CM will continue to support Cesar and his discharge needs
[2021-10-06] MEDS: Insulin Aspart 300 UNITS/3 ML PEN SC ×4 (09:04→22:45)
--- NOTE | 2021-10-06 11:14 | PGE_ITS ---
Date of Service Date of service: 10/06/21 Time of Service: 10:14 Assessment and Plan Assessment and plan (1) Atypical chest pain: Status: Acute Assessment and plan: musculoskeletal, will schedule apap, add lidocaine patches, tramadol. (2) Chronic kidney disease, stage 3: Status: Chronic Assessment and plan: stable, monitor closely with increased diuresis. (3) Type 2 diabetes mellitus: Status: Chronic (4) Ischemic cardiomyopathy: Status: Chronic Assessment and plan: increased diuresis. discussed with DR Chinchilla Subjective Subjective Patient reports: still having pain, tolerating liquids well, tolerating a regu lar diet and afebrile Interval history since last seen: pain is reproducible and constant, worse with movement and deep breaths Exam Const General: cooperative (elderly gentleman of stated age), comfortable and no acute distress Nutritional Appearance: average body habitus Orientation: alert, awake and oriented to person [place] Head: normal to inspection, normocephalic and atraumatic Mouth: oral mucosae normal Chest Chest: normal inspection of the chest Resp Effort & Inspection: normal respiratory effort Cardio Rate: regular rate Rhythm: regular rhythm Skin General skin exam: no rashes or lesions noted Neuro General: patient alert, patient awake and patient oriented x3 Cognition: normal cognition Speech: speech normal Gait: normal gait Extrem General: normal to inspection, full ROM and no pedal edema Objective Last Vital Signs Temp 36.2 C L 10/06/21 07:15 Pulse 67 10/06/21 07:15 Resp 19 10/06/21 07:15 BP 144/82 H 10/06/21 07:15 Pulse Ox 94 10/06/21 07:15 Laboratory Results - last 24 hr 10/05/21 10/05/21 10/05/21 22:52 22:52 22:52 WBC 10.25 RBC 4.93 Hgb 14.7 Hct 45.6 MCV 93 MCH 29.8 MCHC 32.2 RDW 12.2 Plt Count 220 MPV 10.3 Immature Gran % 0.3 Neutrophils % 59.3 Lymphocytes % 25.8 Monocytes % 9.0 Eosinophils % 5.1 Basophils % 0.5 Nucleated RBC % 0.0 Absolute Neutrophils 6.09 Absolute Lymphocytes 2.64 Absolute Monocytes 0.92 H Absolute Eosinophils 0.52 Absolute Basophils 0.05 Sodium 141 Potassium 4.2 Chloride 106 Carbon Dioxide 26.4 Anion Gap 8.6 BUN 36 H Creatinine 2.5 H Estimated GFR/1.73 m2 24.73 Glucose 121 H Calcium 9.3 Magnesium 2.1 Total Bilirubin 0.4 AST 22 ALT 37 Alkaline Phosphatase 132 H Troponin I < 50 C-Reactive Protein NT-Pro-B Natriuret Pep 164 Total Protein 7.9 Albumin 3.8 Procalcitonin TSH COVID-19 Source SARS-CoV-2 (PCR) 10/06/21 10/06/21 10/06/21 01:50 02:12 02:12 WBC RBC Hgb Hct MCV MCH MCHC RDW Plt Count MPV Immature Gran % Neutrophils % Lymphocytes % Monocytes % Eosinophils % Basophils % Nucleated RBC % Absolute Neutrophils Absolute Lymphocytes Absolute Monocytes Absolute Eosinophils Absolute Basophils Sodium 139 Potassium 3.9 Chloride 105 Carbon Dioxide 25.3 Anion Gap 8.7 BUN 38 H Creatinine 2.5 H Estimated GFR/1.73 m2 24.73 Glucose 173 H Calcium 8.8 Magnesium Total Bilirubin 0.5 AST 20 ALT 32 Alkaline Phosphatase 126 H Troponin I Cancelled < 50 C-Reactive Protein NT-Pro-B Natriuret Pep Total Protein 7.4 Albumin 3.6 Procalcitonin TSH 2.41 COVID-19 Source SARS-CoV-2 (PCR) 10/06/21 10/06/21 10/06/21 02:12 02:15 06:00 WBC 17.36 H RBC 4.57 Hgb 13.9 Hct 42.7 MCV 93 MCH 30.4 MCHC 32.6 RDW 12.1 Plt Count 219 MPV 10.0 Immature Gran % 0.3 Neutrophils % 76.7 Lymphocytes % 12.0 Monocytes % 8.1 Eosinophils % 2.5 Basophils % 0.4 Nucleated RBC % 0.0 Absolute Neutrophils 13.32 H Absolute Lymphocytes 2.08 Absolute Monocytes 1.41 H Absolute Eosinophils 0.43 Absolute Basophils 0.07 Sodium Potassium Chloride Carbon Dioxide Anion Gap BUN Creatinine Estimated GFR/1.73 m2 Glucose Calcium Magnesium Total Bilirubin AST ALT Alkaline Phosphatase Troponin I < 50 C-Reactive Protein NT-Pro-B Natriuret Pep Total Protein Albumin Procalcitonin TSH COVID-19 Source Nasal/Nares SARS-CoV-2 (PCR) Negative 10/06/21 10/06/21 10/06/21 06:00 06:00 06:00 WBC 15.38 H RBC 4.67 Hgb 14.1 Hct 43.3 MCV 93 MCH 30.2 MCHC 32.6 RDW 12.2 Plt Count 202 MPV 10.5 Immature Gran % 0.3 Neutrophils % 73.5 Lymphocytes % 14.8 Monocytes % 8.1 Eosinophils % 2.9 Basophils % 0.4 Nucleated RBC % 0.0 Absolute Neutrophils 11.30 H Absolute Lymphocytes 2.28 Absolute Monocytes 1.25 H Absolute Eosinophils 0.45 Absolute Basophils 0.06 Sodium Potassium Chloride Carbon Dioxide Anion Gap BUN Creatinine Estimated GFR/1.73 m2 Glucose Calcium Magnesium Total Bilirubin AST ALT Alkaline Phosphatase Troponin I C-Reactive Protein 0.09 NT-Pro-B Natriuret Pep Total Protein Albumin Procalcitonin 0.1 TSH COVID-19 Source SARS-CoV-2 (PCR) PAWSS Have you Been Recently Intoxicated or Drunk Within the Last 30 days?: No Have you Ever Experienced Previous Episodes of Alcohol Withdrawal?: No Have you ever Experienced Withdrawal Seizures?: No Have you ever Experienced Delirium Tremens(DT)s?: No Have you ever undergone Alcohol Rehabilitation Treatment (i.e, inpt ot outpatient treatment programs)?: No Have you ever Experienced Blackouts?: No Have you ever Combined Alcohol with other Downers within the last 90 days?: No Have you ever Combined Alcohol with any other Substance of Abuse during the last 90 days?: No Positive Blood Alcohol level on Presentation? [PCS.BAL]: No Evidence of Increased Autonomic Activity (i.e. HR>120, tremor, sweating, agitation, nausea)?: No Result: 0
[2021-10-06] MEDS: Lidocaine 5% Patch 2 PATCH TP (12:04)
[2021-10-06] MEDS: traMADol 50 MG TAB PO ×2 (12:04→19:27)
[2021-10-06 12:07] LABS: Bilirubin Negative (Negative); Blood Negative (Negative); Clarity Clear (Clear); Glucose 250 mg/dL (Negative); Ketones Negative (Negative); Leukocyte Esterase Negative (Negative); Nitrite Negative (Negative); Specific Gravity 1.015 (1.005-1.025); Urobilinogen 0.2 EU/dL (Up TO 0.2); pH 5.5 (5-8)
[2021-10-06] MEDS: Atorvastatin 40 MG TAB PO (19:27)
[2021-10-07] VITALS (10 sets, daily range): BP systolic 123–135; BP diastolic 69–78; PULSE 62–68; RESP 1–20; TEMP 36–36.9; O2SAT 91–94
[2021-10-07] MEDS: Albuterol/Ipratropium 3 ML UPD VIAL UPD ×2 (07:25→13:44)
[2021-10-07] MEDS: Furosemide 40 MG/4 ML VIAL IVP (08:46)
[2021-10-07] MEDS: Normal Saline Flush 10 ML SYR IVP (08:46)
[2021-10-07] MEDS: traMADol 50 MG TAB PO (08:47)
[2021-10-07] MEDS: amLODIPine 5 MG TAB 10 MG PO (08:47)
[2021-10-07] MEDS: Metoprolol CR 50 MG TABCR PO (08:47)
[2021-10-07] MEDS: Insulin Aspart 300 UNITS/3 ML PEN SC ×2 (08:47→12:12)
[2021-10-07] MEDS: Lisinopril 5 MG TAB PO (08:48)
[2021-10-07] MEDS: Apixaban 2.5 MG TAB PO (08:48)
[2021-10-07] MEDS: Magnesium Oxide 400 MG TAB PO (08:48)
[2021-10-07] MEDS: Acetaminophen 325 MG TAB 650 MG PO ×2 (08:48→12:12)
[2021-10-07] MEDS: Amiodarone 200 MG TAB PO (08:48)
[2021-10-07] MEDS: Lidocaine Patch Removal 2 EACH TD (08:49)
--- NOTE | 2021-10-07 09:28 | PGE_ITS ---
Date of Service Date of service: 10/07/21 Time of Service: 08:28 Assessment and Plan Assessment and plan (1) Atypical chest pain: Status: Resolved Assessment and plan: musculoskeletal, will schedule apap, add lidocaine patches, tramadol. (2) Chronic kidney disease, stage 3: Status: Chronic Assessment and plan: stable, monitor closely with increased diuresis. (3) Type 2 diabetes mellitus: Status: Chronic (4) CAD (coronary artery disease): Status: Chronic Qualifiers: Associated angina: without angina Coronary Disease-Associated Artery/Lesion type: [place] artery [place] vs. transplanted heart: [place] heart Qualified Code(s): I25.10 - Atherosclerotic heart disease of [place] coronary artery without angina pectoris (5) Fluid overload: Status: Resolved Assessment and plan: Reviewed with Dr Chinchilla - tyrone to D/C later today Subjective Subjective Patient reports: still having pain, tolerating liquids well, tolerating a regular diet and afebrile Interval history since last seen: pain is reproducible and constant, worse with movement and deep breaths; he has had a heating pad on and states it is much improved. Exam Const General: cooperative (elderly gentleman of stated age), comfortable and no acute distress Nutritional Appearance: average body habitus Orientation: alert, awake and oriented to person [facility] Head: normal to inspection, normocephalic and atraumatic Mouth: oral mucosae normal Chest Chest: normal inspection of the chest Resp Effort & Inspection: normal respiratory effort Cardio Rate: regular rate Rhythm: regular rhythm Skin General skin exam: no rashes or lesions noted Neuro General: patient alert, patient awake and patient oriented x3 Cognition: normal cognition Speech: speech normal Gait: normal gait Extrem General: normal to inspection, full ROM and no pedal edema Objective Last Vital Signs Temp 36.2 C L 10/07/21 07:27 Pulse 67 10/07/21 08:31 Resp 20 10/07/21 07:27 BP 127/73 10/07/21 07:27 Pulse Ox 93 10/07/21 07:27 Laboratory Results - last 24 hr 10/06/21 11:50 Urine Color Yellow Urine Clarity Clear Urine pH 5.5 Ur Specific [place] 1.015 Urine Protein Negative Urine Ketones Negative Urine Blood Negative Urine Nitrite Negative Urine Bilirubin Negative Urine Urobilinogen 0.2 Ur Leukocyte Esterase Negative Urine Glucose 250 H Reviewed Pertinent PMH: Yes PAWSS Have you Been Recently Intoxicated or Drunk Within the Last 30 days?: No Have you Ever Experienced Previous Episodes of Alcohol Withdrawal?: No Have you ever Experienced Withdrawal Seizures?: No Have you ever Experienced Delirium Tremens(DT)s?: No Have you ever undergone Alcohol Rehabilitation Treatment (i.e, inpt ot outpatient treatment programs)?: No Have you ever Experienced Blackouts?: No Have you ever Combined Alcohol with other Downers within the last 90 days?: No Have you ever Combined Alcohol with any other Substance of Abuse during the last 90 days?: No Positive Blood Alcohol level on Presentation? [PCS.BAL]: No Evidence of Increased Autonomic Activity (i.e. HR>120, tremor, sweating, agitation, nausea)?: No Result: 0
[2021-10-07] MEDS: Lidocaine 5% Patch 2 PATCH TP (10:35)
--- NOTE | 2021-10-07 13:55 | W.PM.DS.N ---
Date of service: 10/07/21 Time of Service: 12:55 DS: Diagnosis Discharge Diagnosis (1) Atypical chest pain: Status: Resolved (2) Chronic kidney disease, stage 3: Status: Chronic (3) Type 2 diabetes mellitus: Status: Chronic (4) Ischemic cardiomyopathy: Status: Chronic Discharge Plan Disposition Patient Disposition: HOME Condition: Stable Discharge Details Reason For Visit: Atypical Chest Pain, CHF Admit Date/Time: 10/06/21 01:41 Admit Provider: Bello Lassiter Attending Provider: Bello Lassiter [facility] Course: 85 year old?male went to the emergency department with the chief complaint of shortness of breath, left shoulder pain, chest discomfort,?described as moderate,?He said it was aching, did not radiate. It had been hours since it began. Rest and limited movement improved his pain. He was admitted - troponins negative. Pain resolved, enjoyed the aqua pack and felt that was the best therapy. Sig other has similar item at home. He was discharged home with her, ambulatory. Home Meds and New Rx's Prescriptions: Continued lisinopril 5 mg tablet 5 mg PO DAILY amiodarone 200 mg tablet 200 mg PO DAILY Label Comments: 11/27/20 started [place] [facility] [place], pt was loaded on 400 mg BID for 7 days, RH metoprolol succinate 50 mg tablet extended release 24 hr 50 mg PO DAILY tamsulosin 0.4 mg capsule 0.4 mg PO DAILY fluocinolone 0.01 % cream 1 applic topical BID magnesium oxide 400 mg magnesium capsule 400 mg PO BID Label Comments: pt. reports he has been out of it nitroglycerin [Nitrostat] 0.4 mg tablet, sublingual 0.4 mg sublingual Q5 MIN PRN X3 PRN Rx Instructions: as a single dose; administer 5-10 minutes before situation known to precipitate angina attack amlodipine 5 mg tablet 10 mg PO DAILY apixaban 2.5 mg tablet 2.5 mg PO BID Label Comments: 11/27/20 started at [facility] [place] due to elevated creatinine 2.4 RH cholecalciferol (vitamin D3) 25 mcg (1,000 unit) capsule 25 mcg PO DAILY betamethasone dipropionate 0.05 % cream 1 applic topical BID PRN insulin aspart U-100 [Novolog U-100 Insulin aspart] 100 unit/mL solution 9 unit subcut TID Levemir U-100 Insulin 100 unit/mL solution 28 unit subcut DAILY alogliptin 6.25 mg tablet 6.25 mg PO DAILY ibuprofen 200 MG capsule 600 - 800 mg PO PRN PRN atorvastatin [Lipitor] 40 MG tablet 40 mg PO QPM acetaminophen [Acetaminophen Extra Strength] 500 mg Tablet 1,000 mg PO Q8H PRN furosemide 40 mg tablet 40 mg PO DAILY cyanocobalamin (vitamin B-12) 1,000 mcg Tablet 1,000 mcg PO DAILY nystatin 100,000 unit/gram cream 1 applic topical BID Qty: 30 0RF Rx Instructions: apply around ostomy site until redness disappears. Discharge Instructions Instructions: Chest Pain (DC) Additional Instructions: Your white count is elevated; your urine is ok and you don't have a cough, we will not put you on antibiotics at this time. Any increased difficulty in breathing, chest pain, fever, overall ill feeling, follow up with your primary care provider or go to the Emergency Department. Reviewed with Dr Chinchilla Stand Alone Forms: Nursing Discharge Form Referrals: Rolando Moise [Primary Care Provider] - (Please call the office on Friday morning to schedule an appointment to be seen in 1-2 weeks) Activity:: Activity as Tolerated Equipment/Supplies:: No Equipment Needed Diet:: Low Sodium Discharge Orders Discharge Orders: Discharge Order (Routine); Ordered 10/07/21 Ordered By: Tawana Beckford Other Ambulatory Orders: Complete Blood Count w/Diff (Routine) Timeframe: 1 Week Location: None Selected Ordered By: Tawana Beckford Comprehensive Metabolic Panel (Routine) Timeframe: 1 Week Location: None Selected Ordered By: Tawana Beckford Discharge Data Discharge Date/Time-TO BE ENTERED AT DEPARTURE: 10/07/21 15:17 DS: Summary Time Spent with Patient providing and/or coordinating discharge services: Less than 30 minutes Status at Discharge Functional status at discharge: independent ambulation Overall status at discharge: patient is back to baseline Mental Status: mental status grossly normal Speech and Movement: speech and movement normal Mood: congruent mood Affect: normal affect Exam Psych Mental Status: mental status grossly normal Speech and Movement: speech and movement normal Mood: congruent mood Affect: normal affect DS: Data Vitals/I&O Vitals and I&O: Vital Signs Temperature 36.0 C L 10/07/21 11:41 Temperature Source Tympanic 10/07/21 11:41 Pulse 66 10/07/21 11:41 Pulse Rhythm Regular 10/07/21 08:50 Pulse 74 10/06/21 02:16 Respiratory Rate 18 10/07/21 11:41 Respiratory Effort Non-Labored 10/07/21 08:50 Respiratory Depth Normal 10/07/21 08:50 Respiratory Pattern Normal 10/07/21 08:50 Blood Pressure 135/74 10/07/21 11:41 Blood Pressure Mean 89 10/06/21 02:16 Blood Pressure Position Sitting 10/05/21 22:38 Pulse Oximetry 94 10/07/21 11:41 Oxygen Delivery Method Room Air 10/07/21 13:44 Oxygen Flow Rate 0 10/07/21 13:44 Pain Level 3 10/07/21 12:12 Intake & Output 10/06/21 10/07/21 10/07/21 23:59 11:59 23:59 Intake Total 210 / 450 200 / 200 Output Total 300 / 1200 375 / 375 Balance -90 / -750 -175 / -175 Weight 96.2 kg Intake: Oral 210 / 450 200 / 200 Output: Urine 300 / 1200 375 / 375 Other: Urine Color Yellow Yellow Urine Appearance Clear Cloudy Urine Odor Normal Comment Patient voided unmeasurable amount. Voiding Methods Urinal Urinal PFSH All Active Problems (Updated 10/08/21 @ 00:05 by PAULIE CLAYTON) HTN (hypertension) (Acute) CAD (coronary artery disease) (Chronic) Dermatitis (Acute) Atrial fibrillation (Chronic) Chest pain (Acute) Acute non-ST elevation myocardial infarction (NSTEMI) (Acute) Wound dehiscence, surgical (Acute) Type 2 diabetes mellitus (Chronic) Fatty liver (Acute) Chronic kidney disease, stage 3 (Chronic) Mass of salivary gland (Acute) Ischemic cardiomyopathy (Chronic) Skin lesion of scalp (Acute) Anemia (Chronic) Hearing impairment (Acute) Medical History AAA (abdominal aortic aneurysm) Atrial flutter Balanitis 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) CHF (congestive heart failure) Diabetes mellitus Diverticulitis of large intestine with abscess Edema Erectile dysfunction Former smoker [place]'s disease HLD (hyperlipidemia) Hypercholesterolemia Hypomagnesemia Myocardial infarct Phimosis Phimosis (10/17/15) Renal insufficiency Surgical History H/O phimosis s/p repair History of endovascular stent graft for abdominal aortic aneurysm (AAA) History of heart artery stent S/P hernia repair S/P left hemicolectomy (~07/19/18) Status post colostomy takedown (~03/01/20) Social History Smoking/Tobacco Use Status: Former Tobacco Use Quit Date: 01/03/17 Tobacco: How many years used: 60 Smoking risk assessment performed?: Yes Alcohol Intake: current Alcohol Intake frequency: 0-2 drinks per day Alcohol type: beer Drug use: Never Substance use type: does not use Do you feel safe at home: Yes Do you feel safe in your relationship?: Yes
== END 2021-10-07 15:17 | disposition home or self-care (01) ==
LOC: ER 22:52 → MS 10-06 09:10
PROVIDERS: Internal Medicine; Student in an Organized Health Care Education/Training Program; Admitting Provider Family Medicine; Emergency Provider Physician Assistant; PCP Family Medicine; Visit Provider Family Medicine
DX: R07.89 Other chest pain (principal); I25.5 Ischemic cardiomyopathy; I25.10 Atherosclerotic heart disease of native coronary artery without angina pectoris; E11.22 Type 2 diabetes mellitus with diabetic chronic kidney disease; N18.30 Chronic kidney disease, stage 3 unspecified; I51.7 Cardiomegaly; I70.0 Atherosclerosis of aorta; E87.70 Fluid overload, unspecified; R06.02 Shortness of breath; I12.9 Hypertensive chronic kidney disease with stage 1 through stage 4 chronic kidney disease, or unspecified chronic kidney disease; I48.91 Unspecified atrial fibrillation; Z79.01 Long term (current) use of anticoagulants; I25.2 Old myocardial infarction; K76.0 Fatty (change of) liver, not elsewhere classified; D64.9 Anemia, unspecified; Z95.5 Presence of coronary angioplasty implant and graft; L11.1 Transient acantholytic dermatosis [Grover]; Z87.891 Personal history of nicotine dependence; Z79.4 Long term (current) use of insulin; Z20.822 Contact with and (suspected) exposure to COVID-19
CPT/HCPCS: 36415; 36416; 80053; 82962; 84145; 87635; 93005; 96372; 96374; 96376; 71045; 81003; 83735; 83880; 84443; 84484; 85025; 86140; 93010; 94640; 99217; 99220; 99233; 99238; G0378; J1940; J3490; J7620

== ENCOUNTER 2021-10-23 01:08 | Outpatient (CLI) | payer MEDICARE, SELFPAY ==
[2021-10-23] MEDS: Inhaler, Assist Device 1 EACH MC (16:09)
[2021-10-23] MEDS: Albuterol HFA 18 GM 200 PUFF INH IH (16:09)
--- NOTE | 2021-10-24 07:50 | W.PFT ---
Date of service: 10/23/21 Time of Service: 14:59 Pulmonary Function Test Result Requesting Provider Rolando Moise Indications: ILD, STEINER Interpretation Spirometry: There is no airflow limitation. There is a significant bronchodilator response. Lung Volumes: Lung volumes are normal. Diffusion Capacity: Diffusion is technically normal when correcting for hemoglobin, but borderline low Airway Pressure: Normal airways resistance Impression Normal pulmonary function testing with a significant bronchodilator response and a borderline low diffusion. Clinical Correlation therefore is recommended.
== END 2021-10-23 01:09 | disposition home or self-care (01) ==
LOC: RT 01:08
PROVIDERS: PCP Family Medicine; Visit Provider Family Medicine
DX: J84.9 Interstitial pulmonary disease, unspecified (principal); R06.09 Other forms of dyspnea; R06.2 Wheezing; Z87.891 Personal history of nicotine dependence
CPT/HCPCS: 94060; 94726; 94729

== ENCOUNTER 2021-11-16 15:49 | Emergency (ER) | payer MEDICARE, SELFPAY ==
--- NOTE | 2021-11-16 15:45 | RT.EKG_ITS ---
APPROVED REPORT Exam: Resting ECG Reason for Exam: DIZZINESS Patient Location: E HR:59 bpm ECG Measurements Heart Rate 59 AXIS CA 303 P -9 QRSd 122 QRS 33 QT 490 T 28 QTc 487 Conclusion Sinus bradycardia...rate< 60 Prolonged CA interval...CA >220, V-rate 50- 90 Nonspecific intraventricular conduction delay...QRSd >115mS, not LBBB/RBBB
--- NOTE | 2021-11-16 16:00 | DI.RAD_ITS ---
Exam(s) XR PORTABLE CHEST AP EXAM: XR PORTABLE CHEST AP CLINICAL HISTORY: weakness TECHNIQUE: 2D digital imaging was performed of the chest. One image was obtained. An AP view was ob tained. COMPARISON: CR,XR XR PORTABLE CHEST AP from 10/05/2021 FINDINGS: MEDIASTINUM: Normal. HEART: Heart at the upper limits of normal in size. PULMONARY VASCULATURE: Atherosclerosis of the thoracic aorta. LUNGS: No focal consolidating infiltrates. PLEURAL SPACE: No pleural effusion or pneumothorax. BONE:Within normal limits for the patient's age. OTHER FINDINGS:Normal. IMPRESSION: No acute pulmonary findings. DATA REPOSITORY: RADIATION DOSE DELIVERED:
[2021-11-16 16:04] VITALS: BP 132/62; PULSE 60; RESP 12; TEMP 36.3; O2SAT 98
[2021-11-16 16:20] VITALS: RESP 16
[2021-11-16 16:20] LABS: Abs Immature Grans 0.09 10^3/uL (0.0-0.06); Absolute Basophil Count 0.06 10^3/uL (0.0-0.2); Absolute Eosinophil Count 0.08 10^3/uL (0.0-0.7); Absolute Monocyte Count 1.55 10^3/uL (0.1-0.8); Basophils % 0.4; Eosinophils % 0.5; HCT 46.2 % (40.0-50.0); HGB 15.3 g/dL (13.5-17.5); Immature Grans % 0.6; Lymphocytes % 8.1; MCH 30.7 pg (27.0-33.0); MCHC 33.1 % (32.0-36.0); MCV 93 fL (80-95); MPV 9.9 fL (8.0-11.0); Monocytes % 9.9; Neutrophils % 80.5; Platelet Count 213 10^3/uL (130-400); RBC 4.98 10^6/uL (4.36-5.78); RDW 12.5 % (11.8-14.1); RDW-SD 42.8 fL; WBC 15.64 10^3/uL (4.4-10.8)
[2021-11-16 16:21] LABS: Absolute Lymphocyte Count 1.27 10^3/uL (1.2-3.4); Absolute Neutrophil Count 12.59 10^3/uL (1.2-6.7)
[2021-11-16 16:41] LABS: Diff Comment Agrees w/ Instrument; RBC Morphology Normal
[2021-11-16 16:46] LABS: ALT 46 U/L (16-63); AST 23 U/L (15-37); Albumin 3.9 g/dL (3.4-5.0); Alkaline Phosphatase 97 U/L (46-116); Anion Gap 10.4 mmol/L (3-11); BUN 40 mg/dL (7-18); Bilirubin, Total 0.6 mg/dL (0.2-1.0); CO2 26.6 mmol/L (21.0-32.0); CREATININE 2.8 mg/dL (0.70-1.30); Calcium 9.4 mg/dL (8.5-10.1); Chloride 107 mmol/L (98-107); Estimated GFR 21.64 (mL/min/1.73m2); Glucose 76 mg/dL (74-106); Magnesium 2.2 mg/dL (1.8-2.4); Potassium 3.8 mmol/L (3.5-5.1); Sodium 144 mmol/L (136-145); Total Protein 7.5 g/dL (6.4-8.2); Troponin I < 50 ng/L (<or=60)
--- NOTE | 2021-11-16 17:25 | DI.VRAD_ITS ---
PROCEDURE INFORMATION: Exam: XR Chest Exam date and time: 11/16/2021 4:39 PM Age: 86 years old Clinical indication: Other: Weakness TECHNIQUE: Imaging protocol: Radiologic exam of the chest. Views: 1 view. COMPARISON: XR PORTABLE CHEST AP 10/05/2021 11:02 PM FINDINGS: Lungs: Unremarkable. No consolidation. Pleural spaces: Unremarkable. No pleural effusion. No pneumothorax. Heart/Mediastinum: . Mild cardiomegaly. Bones/joints: Degenerative thoracic spine. IMPRESSION: 1. No acute findings. 2. Clear lungs and pleural space. 3. Mild cardiac enlargement. 4. Atherosclerotic thoracic aorta with mild ectasia. 5. No significant change since 10/05/2021. Dictated and Authenticated by: Gabriel Guerrero MD. Ordering:LELO Perera MD
--- NOTE | 2021-11-16 18:40 | NUR.NOTE ---
Nursing Note: Pt info faxed to PCP to be seen IVETTE for hypoglycemia. Catherine, ED
--- NOTE | 2021-11-17 00:01 | ED.GENADUL_ITS ---
Discharge Plan Disposition Patient Disposition: HOME Condition: Stable Discharge Details Clinical Impression: Hypoglycemia, CKD (chronic kidney disease), Peripheral edema Primary Care Provider: Rolando Moise ED Provider: Dilma Gallardo Home Meds and New Rx's Prescriptions: Continued lisinopril 5 mg tablet 5 mg PO DAILY amiodarone 200 mg tablet 200 mg PO DAILY Label Comments: 11/27/20 started at [facility] [place] for afib, pt was loaded on 400 mg BID for 7 days, RH metoprolol succinate 50 mg tablet extended release 24 hr 50 mg PO DAILY tamsulosin 0.4 mg capsule 0.4 mg PO DAILY fluocinolone 0.01 % cream 1 applic topical BID magnesium oxide 400 mg magnesium capsule 400 mg PO BID Label Comments: pt. reports he has been out of it nitroglycerin [Nitrostat] 0.4 mg tablet, sublingual 0.4 mg sublingual Q5 MIN PRN X3 PRN Rx Instructions: as a single dose; administer 5-10 minutes before situation known to precipitate angina attack amlodipine 5 mg tablet 10 mg PO DAILY apixaban 2.5 mg tablet 2.5 mg PO BID Label Comments: 11/27/20 started at [facility] [place] due to elevated creatinine 2.4 RH cholecalciferol (vitamin D3) 25 mcg (1,000 unit) capsule 25 mcg PO DAILY betamethasone dipropionate 0.05 % cream 1 applic topical BID PRN insulin aspart U-100 [Novolog U-100 Insulin aspart] 100 unit/mL solution 9 unit subcut TID Levemir U-100 Insulin 100 unit/mL solution 28 unit subcut DAILY alogliptin 6.25 mg tablet 6.25 mg PO DAILY ibuprofen 200 MG capsule 600 - 800 mg PO PRN PRN atorvastatin [Lipitor] 40 MG tablet 40 mg PO QPM acetaminophen [Acetaminophen Extra Strength] 500 mg Tablet 1,000 mg PO Q8H PRN furosemide 40 mg tablet 40 mg PO DAILY cyanocobalamin (vitamin B-12) 1,000 mcg Tablet 1,000 mcg PO DAILY nystatin 100,000 unit/gram cream 1 applic topical BID Qty: 30 0RF Rx Instructions: apply around ostomy site until redness disappears. Discharge Instructions Additional Instructions: If you use your insulin, you must eat a meal simultaneously or your blood sugar will drop as it does this morning You may also need adjustment of your insulin so keep close documentation of your blood sugars throughout the day He should check your blood sugar with every meal The remainder of your tests are similar to her prior Increase your Lasix to 80 mg for the next 3 days and then return to your 40 mg daily Elevate your legs as much as possible Watch the amount of sodium you are eating Please return earlier should you have new or worsening complaints Referrals: Rolando Moise [Primary Care Provider] - 1 day Discharge Data Discharge Date/Time-TO BE ENTERED AT DEPARTURE: 11/16/21 18:48 Medical Decision Making Patient is alert and oriented although was very tired in appearance initially His blood sugar was noted to 55 Further investigation it seems that patient use both short and long-acting insulin and did not consume any meals this morning or afternoon He was given a full meal and iraida zeke and his blood sugar at time of discharge was 136 Of note he was crying at 's office staff and challenged treat Adamantly refused additional intervention and was reluctant to allow us to perform blood glucose fingerstick testing Given his chronic kidney disease he may need adjustment of his insulin He is now at his neurological baseline I see no need for further investigation with CT imaging I suspect his symptoms are related to hypoglycemia although he will need reassessment should he have new or worsening symptoms Medical Records Medical records reviewed: Yes I reviewed the patient's medical records. Lab Data Lab results reviewed: Yes I reviewed the patient's lab results. HPI General Date/Time Provider Initiated Documentation: 11/16/21 15:55 . HPI Narrative: This 86-year-old gentleman with history of diabetes presents from report of weakness and dizziness which started this morning. Patient states he just feels really tired. He did take his insulin both short and long-acting and did not eat till 230 this afternoon. He denies any speech, strength, or sensation change. He denies any fever or chills. He denies any urinary complaints. He denies any additional complaints at this time. Related Data Home Medications Medication Instructions Recorded Confirmed ibuprofen 200 mg capsule 600 - 800 mg PO PRN PRN 09/05/15 05/29/21 atorvastatin 40 mg tablet (Lipitor) 40 mg PO QPM 09/20/17 10/05/21 fluocinolone 0.01 % topical cream 1 applic topical BID 01/14/20 10/05/21 magnesium oxide 400 mg PO BID 01/14/20 11/16/21 nitroglycerin 0.4 mg sublingual 0.4 mg sublingual Q5 MIN PRN X3 PRN 01/14/20 11/16/21 tablet (Nitrostat) acetaminophen 500 mg tablet 1,000 mg PO Q8H PRN 02/29/20 10/05/21 (Acetaminophen Extra Strength) cyanocobalamin (vitamin B-12) 1,000 mcg PO DAILY 03/01/20 10/05/21 1,000 mcg tablet furosemide 40 mg tablet 40 mg PO DAILY swelling 03/01/20 10/05/21 nystatin 100,000 unit/gram topical 1 applic topical BID #30 grams 03/05/20 11/16/21 cream amiodarone 200 mg tablet 200 mg PO DAILY 11/27/20 10/05/21 lisinopril 5 mg tablet 5 mg PO DAILY 11/27/20 11/16/21 metoprolol succinate 50 mg 50 mg PO DAILY 11/27/20 11/16/21 tablet,extended release 24 hr tamsulosin 0.4 mg capsule 0.4 mg PO DAILY 11/27/20 11/16/21 alogliptin 6.25 mg tablet 6.25 mg PO DAILY 05/31/21 10/05/21 amlodipine 5 mg tablet 10 mg PO DAILY 05/31/21 10/05/21 apixaban 2.5 mg tablet 2.5 mg PO BID 05/31/21 10/05/21 betamethasone dipropionate 0.05 % 1 applic topical BID PRN 05/31/21 10/05/21 topical cream cholecalciferol (vitamin D3) 25 25 mcg PO DAILY 05/31/21 10/05/21 mcg (1,000 unit) capsule insulin aspart U-100 100 unit/mL 9 unit subcut TID 05/31/21 11/16/21 subcutaneous solution (Novolog U-100 Insulin aspart) insulin detemir U-100 100 unit/mL 28 unit subcut DAILY 05/31/21 11/16/21 subcutaneous solution (Levemir U-100 Insulin) Previous Rx's Medication Instructions Recorded nystatin 100,000 unit/gram topical 1 applic topical BID #30 grams 03/05/20 cream Allergies Allergy/AdvReac Type Severity Reaction Status Date / Time adhesive Allergy Severe significant Verified 11/16/21 16:09 skin reaction, swelling, erythema, discomfort neomycin Allergy Unverified 11/16/21 16:09 General Stated Complaint: AMS/LOC ASTON: 2 Review of Systems All systems reviewed & are unremarkable except as noted in HPI and below PFSH All Active Problems (Updated 11/16/21 @ 18:37 by QUINN Hennessy) Hypoglycemia (Acute) CKD (chronic kidney disease) (Chronic) Peripheral edema (Acute) HTN (hypertension) (Acute) CAD (coronary artery disease) (Chronic) Dermatitis (Acute) Atrial fibrillation (Chronic) Chest pain (Acute) Acute non-ST elevation myocardial infarction (NSTEMI) (Acute) Wound dehiscence, surgical (Acute) Type 2 diabetes mellitus (Chronic) Fatty liver (Acute) Chronic kidney disease, stage 3 (Chronic) Mass of salivary gland (Acute) Ischemic cardiomyopathy (Chronic) Skin lesion of scalp (Acute) Anemia (Chronic) Hearing impairment (Acute) Medical History AAA (abdominal aortic aneurysm) Atrial flutter Balanitis 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) CHF (congestive heart failure) Diabetes mellitus Diverticulitis of large intestine with abscess Edema Erectile dysfunction Former smoker [place]'s disease HLD (hyperlipidemia) Hypercholesterolemia Hypomagnesemia Myocardial infarct Phimosis Phimosis (10/17/15) Renal insufficiency Surgical History H/O phimosis s/p repair History of endovascular stent graft for abdominal aortic aneurysm (AAA) History of heart artery stent S/P hernia repair S/P left hemicolectomy (~07/19/18) Status post colostomy takedown (~03/01/20) Social History Smoking/Tobacco Use Status: Former Tobacco Use Quit Date: 01/03/17 Tobacco: How many years used: 60 Smoking risk assessment performed?: Yes Alcohol Intake: current Alcohol Intake frequency: 0-2 drinks per day Alcohol type: beer Drug use: Never Substance use type: does not use Do you feel safe at home: Yes Do you feel safe in your relationship?: Yes Exam Const Orientation: alert and oriented x3 Other: tired in appearance HENMT Other: Uvula midline Eyes Pupils: PERRL Resp Effort & Inspection: normal respiratory effort Auscultation: clear to auscultation bilaterally Cardio Rate: regular rate Rhythm: regular rhythm GI Inspection: normal to inspection Other: Nontender abdominal exam Skin General skin exam: no rashes or lesions noted Neuro Other: Alert, oriented x4, cranial EKG 12 intact, speech intact, DTRs intact bilateral lower extremities, negative pronator drift, negative [id number], negative heel martinez Extrem Other: Distal pulses intact Course Vital Signs Vital signs: Vital Signs Temperature 36.3 C L 11/16/21 16:04 Pulse 60 11/16/21 16:04 Respiratory Rate 12 11/16/21 16:04 Blood Pressure 132/62 11/16/21 16:04 Pulse Oximetry 98 11/16/21 16:04 Temperature 36.3 C L 11/16/21 16:04 Temperature Source Temporal Artery Scan 11/16/21 16:04 Pulse 60 11/16/21 16:04 Respiratory Rate 16 11/16/21 16:20 Respiratory Effort Non-Labored 11/16/21 16:20 Respiratory Depth Normal 11/16/21 16:20 Respiratory Pattern Normal 11/16/21 16:20 Blood Pressure 132/62 11/16/21 16:04 Blood Pressure Position Supine 11/16/21 16:04 Pulse Oximetry 98 11/16/21 16:04 Oxygen Delivery Method Room Air 11/16/21 16:04 Oxygen Flow Rate 0 11/16/21 16:04 Pain Level 0 11/16/21 16:04 Lab/Test Results Lab/Test Results: Laboratory Tests Range/Units 11/16/21 11/16/21 11/16/21 16:12 16:12 19:10 WBC (4.4-10.8) 10^3/uL 15.64 H RBC (4.36-5.78) 10^6/uL 4.98 Hgb (13.5-17.5) g/dL 15.3 Hct (40.0-50.0) % 46.2 MCV (80-95) fL 93 MCH (27.0-33.0) pg 30.7 MCHC (32.0-36.0) % 33.1 RDW (11.8-14.1) % 12.5 Plt Count (130-400) 10^3/uL 213 MPV (8.0-11.0) fL 9.9 Immature Gran % 0.6 Neutrophils % 80.5 Lymphocytes % 8.1 Monocytes % 9.9 Eosinophils % 0.5 Basophils % 0.4 Nucleated RBC % (0.0-0.3) % 0.0 Absolute Neutrophils (1.2-6.7) 10^3/uL 12.59 H Absolute Lymphocytes (1.2-3.4) 10^3/uL 1.27 Absolute Monocytes (0.1-0.8) 10^3/uL 1.55 H Absolute Eosinophils (0.0-0.7) 10^3/uL 0.08 Absolute Basophils (0.0-0.2) 10^3/uL 0.06 RBC Morphology Normal Sodium (136-145) mmol/L 144 Potassium (3.5-5.1) mmol/L 3.8 Chloride (98-107) mmol/L 107 Carbon Dioxide (21.0-32.0) mmol/L 26.6 Anion Gap (3-11) mmol/L 10.4 BUN (7-18) mg/dL 40 H Creatinine (0.70-1.30) mg/dL 2.8 H Estimated GFR/1.73 m2 (mL/min/1.73m2) 21.64 Glucose (74-106) mg/dL 76 Calcium (8.5-10.1) mg/dL 9.4 Magnesium (1.8-2.4) mg/dL 2.2 Total Bilirubin (0.2-1.0) mg/dL 0.6 AST (15-37) U/L 23 ALT (16-63) U/L 46 Alkaline Phosphatase (46-116) U/L 97 Troponin I (<or=60) ng/L < 50 Cancelled Total Protein (6.4-8.2) g/dL 7.5 Albumin (3.4-5.0) g/dL 3.9
== END 2021-11-16 18:48 | disposition home or self-care (01) ==
PROVIDERS: Emergency Provider Physician Assistant; PCP Family Medicine
DX: E11.649 Type 2 diabetes mellitus with hypoglycemia without coma (principal); E11.22 Type 2 diabetes mellitus with diabetic chronic kidney disease; N18.30 Chronic kidney disease, stage 3 unspecified; R60.0 Localized edema; I50.9 Heart failure, unspecified; I25.2 Old myocardial infarction; Z87.891 Personal history of nicotine dependence; Z79.4 Long term (current) use of insulin; Z95.5 Presence of coronary angioplasty implant and graft
CPT/HCPCS: 36415; 36416; 80053; 82962; 93005; 96374; 99284; 71045; 83735; 84484; 85025; 93010; 99285

== ENCOUNTER → 2021-12-25 10:34 | Outpatient (BNVA) | payer MEDICARE, SELFPAY | PROVIDERS: PCP Family Medicine; Referring Provider Family Medicine; Visit Provider Internal Medicine Cardiovascular Disease | DX: I48.0 Paroxysmal atrial fibrillation (principal); R06.09 Other forms of dyspnea; R60.0 Localized edema; Z79.01 Long term (current) use of anticoagulants; I25.10 Atherosclerotic heart disease of native coronary artery without angina pectoris; I10 Essential (primary) hypertension | CPT/HCPCS: 99214 ==

== ENCOUNTER 2022-02-18 13:05 | Outpatient (REF) | payer MEDICARE, SELFPAY ==
[2022-02-18 16:07] LABS: Anion Gap 12.8 mmol/L (3-11); BUN 40 mg/dL (7-18); CO2 24.2 mmol/L (21.0-32.0); Calcium 9.3 mg/dL (8.5-10.1); Chloride 104 mmol/L (98-107); Estimated GFR 19.74 (mL/min/1.73m2); Glucose 264 mg/dL (74-106); Potassium 3.9 mmol/L (3.5-5.1); Sodium 141 mmol/L (136-145)
== END 2022-02-18 13:06 | disposition home or self-care (01) ==
LOC: NCHCN 13:05
PROVIDERS: PCP Family Medicine; Visit Provider Family Medicine
DX: I50.9 Heart failure, unspecified (principal); R07.81 Pleurodynia; J84.9 Interstitial pulmonary disease, unspecified; N18.4 Chronic kidney disease, stage 4 (severe)
CPT/HCPCS: 80048

== ENCOUNTER → 2022-03-08 00:24 | Outpatient (CLI) | payer MEDICARE, SELFPAY ==
--- NOTE | 2022-03-08 09:28 | DI.CT_ITS ---
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 TECHNIQUE: Multi planar reconstructions were performed. CONTRAST MATERIAL: None COMPARISON: CT CT CHEST/ABD/PEL WO from 11/07/2020 FINDINGS: CHEST: LUNGS: Compared to the prior CT scan there appears to be stable predominantly basal interstitial dise ase in both lungs, not associated with pleural effusions. No new ominous lung nodules. However, the re is some mild infiltrate in the medial basal segment of the right lower lobe which was not evident on the prior study (series 2/image 28) MEDIASTINUM: There is no obvious hilar nor mediastinal adenopathy. Visualized thyroid unremarkable.No obvious axillary adenopathy CARDIAC: Heart size is upper normal. There is no pericardial effusion.Diameter of the ascending thor acic aorta is again noted be prominent, measuring 4.5 cm. The diameter of the mid aortic arch measur es 3.6 cm and the diameter of the proximal descending thoracic aorta is also enlarged, measuring 3.7 cm. Diameter of the mid descending thoracic aorta is 3.5 cm and diameter of the lower thoracic aorta is 2.7 cm. On the lower most image of this study there is the upper aspect of what appears to be an aortic EVAR graft VISUALIZED UPPER ABDOMEN:No adrenal masses. Spleen size normal. Calculus noted in the lower pole le ft kidney but not completely included in the field of view of this chest study. OSSEOUS: No fractures nor osseous lesions.. IMPRESSION: 1. Stable appearance of lower lung field bilateral interstitial disease. However, there is now some mild infiltrate in the medial basal segment of the right lower lobe, not evident previously. No asso ciated pleural effusions. No intrathoracic adenopathy. 2. Stable appearance of the dilated entire length of the intrathoracic aorta. Diameter of the ascend ing thoracic aorta is again noted be 4.5 cm 3. Other findings as above. RADIATION DOSE DELIVERED: 642.91mGy.cm Total DLP DATA REPOSITORY: All CT scans at this facility are submitted to the National Radiology Data Registry (NRDR) Dose Index Registry (DIR) with the [employer] ([employer]). RADIATION OPTIMIZATION: All CT scans at this facility use at least one of these dose optimization te chniques: automated exposure control; mA and/or kV adjustment per patient size (includes targeted exa ms where dose is matched to clinical indication); or iterative reconstruction.
== END ==
PROVIDERS: PCP Family Medicine; Visit Provider Family Medicine
DX: J84.9 Interstitial pulmonary disease, unspecified (principal); R07.81 Pleurodynia
CPT/HCPCS: 71250

== ENCOUNTER → 2022-07-11 09:35 | Outpatient (BNVA) | payer MEDICARE, SELFPAY | PROVIDERS: PCP Family Medicine; Visit Provider Internal Medicine Cardiovascular Disease | DX: Z79.899 Other long term (current) drug therapy (principal); I48.0 Paroxysmal atrial fibrillation; I10 Essential (primary) hypertension; I25.10 Atherosclerotic heart disease of native coronary artery without angina pectoris; Z95.5 Presence of coronary angioplasty implant and graft | CPT/HCPCS: 99214 ==

== ENCOUNTER 2022-07-22 17:11 | Outpatient (REF) | payer MEDICARE, SELFPAY ==
[2022-07-22 15:27] LABS: HCT 46.6 % (40.0-50.0); HGB 15.2 g/dL (13.5-17.5); MCH 30.5 pg (27.0-33.0); MCHC 32.6 % (32.0-36.0); MCV 93 fL (80-95); MPV 11.5 fL (8.0-11.0); Platelet Count 233 10^3/uL (130-400); RBC 4.99 10^6/uL (4.36-5.78); RDW 12.3 % (11.8-14.1); RDW-SD 42.1 fL; WBC 10.93 10^3/uL (4.4-10.8)
[2022-07-22 15:48] LABS: Iron 113 ug/dL (65-175); Total Iron Binding Capacity 250 ug/dL (250-450); Transferrin Sat 45 % (20-55)
[2022-07-22 15:54] LABS: ALT 51 U/L (16-63); AST 31 U/L (15-37); Albumin 3.7 g/dL (3.4-5.0); Alkaline Phosphatase 124 U/L (46-116); BUN 26 mg/dL (7-18); CREATININE 2.5 mg/dL (0.70-1.30); Calcium 9.4 mg/dL (8.5-10.1); Chloride 106 mmol/L (98-107); Estimated GFR 24.56 (mL/min/1.73m2); Glucose 278 mg/dL (74-106); Potassium 4.5 mmol/L (3.5-5.1); Sodium 143 mmol/L (136-145); Total Protein 7.2 g/dL (6.4-8.2)
[2022-07-22 16:07] LABS: Vitamin D 25 Total 47.6 ng/mL (30-100)
[2022-07-22 17:49] LABS: Bilirubin, Total 0.7 mg/dL (0.2-1.0); PHOSPHORUS 3.2 mg/dL (2.6-4.7)
[2022-07-22 22:53] LABS: Parathyroid Hormone,Intact 82 pg/mL (19-88)
== END 2022-07-22 17:12 | disposition home or self-care (01) ==
LOC: NCHCN 17:11
PROVIDERS: PCP Family Medicine; Visit Provider Family Medicine
DX: N18.4 Chronic kidney disease, stage 4 (severe) (principal); E83.42 Hypomagnesemia
CPT/HCPCS: 80053; 82306; 85027; 83540; 83550; 83735; 83970; 84100

== ENCOUNTER 2022-07-30 08:12 | Emergency (ER) | payer MEDICARE, SELFPAY ==
[2022-07-30 08:22] VITALS: BP 164/77; PULSE 72; RESP 18; TEMP 36.7; O2SAT 95
--- NOTE | 2022-07-30 08:30 | DI.RAD_ITS ---
Exam(s) XR KNEE LT 3V AP,LAT,SADIE EXAM: XR KNEE LT 3V AP,LAT,SADIE CLINICAL HISTORY: Swelling, Pain. TECHNIQUE: 2D digital imaging was performed of the left knee. Three images were obtained. AP, late ral and PA tunnel views were obtained. COMPARISON: There are no priors for comparison. FINDINGS: BONES: No acute fracture is present. No bony destructive lesion is seen. There is a large enthesophy te at the superior anterior patella. JOINTS: The knee is normally aligned. There is a small joint effusion. There is chondrocalcinosis in the femoral tibial joint. Mild spurring is seen at the posterior patella. SOFT TISSUE: Atherosclerosis is present. Soft tissue swelling anterior to the knee. IMPRESSION: 1. Very mild degenerative changes are seen. 2. There is soft tissue swelling anterior to the knee. There is a small joint effusion. DATA REPOSITORY: RADIATION DOSE DELIVERED:
--- NOTE | 2022-07-30 08:34 | ED.GENADUL_ITS ---
Discharge Plan Disposition Patient Disposition: Home Condition: Stable Discharge Details Clinical Impression: Gouty arthritis of left knee Primary Care Provider: Rolando Moise ED Provider: Clementine Tirado Home Meds and New Rx's Prescriptions: New indomethacin 25 mg capsule 25 mg PO TID PRN (Reason: pain) 7 Days Qty: 21 0RF Rx Instructions: administer with food or milk Continued lisinopril 5 mg tablet 5 mg PO DAILY amiodarone 200 mg tablet 200 mg PO DAILY Patient Comments: 11/27/20 started at [facility] for afib, pt was loaded on 400 mg BID for 7 days, RH metoprolol succinate 50 mg tablet extended release 24 hr 50 mg PO DAILY tamsulosin 0.4 mg capsule 0.4 mg PO DAILY amlodipine 2.5 mg tablet 2.5 mg PO DAILY fluocinolone 0.01 % cream 1 applic topical BID magnesium oxide 400 mg magnesium capsule 400 mg PO BID Patient Comments: pt. reports he has been out of it nitroglycerin [Nitrostat] 0.4 mg tablet, sublingual 0.4 mg sublingual Q5 MIN PRN X3 PRN Rx Instructions: as a single dose; administer 5-10 minutes before situation known to precipitate angina attack apixaban 2.5 mg tablet 2.5 mg PO BID Patient Comments: 11/27/20 started at [facility] due to elevated creatinine 2.4 RH cholecalciferol (vitamin D3) 25 mcg (1,000 unit) capsule 25 mcg PO DAILY betamethasone dipropionate 0.05 % cream 1 applic topical BID PRN insulin aspart U-100 [Novolog U-100 Insulin aspart] 100 unit/mL solution 9 unit subcut TID alogliptin 6.25 mg tablet 6.25 mg PO DAILY Levemir U-100 Insulin 100 unit/mL solution 25 unit subcut DAILY ibuprofen 200 MG capsule 600 - 800 mg PO PRN PRN atorvastatin [Lipitor] 40 MG tablet 40 mg PO QPM acetaminophen [Acetaminophen Extra Strength] 500 mg Tablet 1,000 mg PO Q8H PRN cyanocobalamin (vitamin B-12) 1,000 mcg Tablet 1,000 mcg PO DAILY nystatin 100,000 unit/gram cream 1 applic topical BID Qty: 30 0RF Rx Instructions: apply around ostomy site until redness disappears. furosemide 40 mg tablet 80 mg PO DAILY Discharge Instructions Instructions: Gout (ED) Additional Instructions: I do suspect gouty arthritis to your left knee. Please take the indomethacin as prescribed. Please follow-up with orthopedics in the next 3 to 5 days as needed you are placed on a care management list to help you get an appointment. Rest ice compression elevation. Follow up with primary care provider in 3-5 days. Return to ED sooner if any worsening or concerns. Increase oral fluids. Referrals: Heber Nickerson MD [ [facility] STAFF PHYSICIAN] - 5 days Medical Decision Making 86-year-old male presents to the ER with a chief complaint of left knee swelling and redness which has been ongoing for the last 3 to 4 days. Patient does report pain with flexion and extension. Does have a history of hypertension coronary artery disease, atrial fibrillation NSTEMI, type 2 diabetes, chronic kidney disease stage III cardiomyopathy anemia and hearing impairment. He does take apixaban. He denies any known injuries. He did see his PCP yesterday who applied an Bryan bandage and given some topical cream which he has not picked up from the pharmacy yet. X-ray ordered, labs CBC CMP and uric acid Differential diagnosis includes but not limited to effusion, septic joint, underlying injury, gout CBC shows white blood cell count of 12.39, BUN/creatinine 25 and 2.5 which is at patient's baseline, glucose 226 uric acid is 9.0 indomethacin 50 mg ordered. Patient was given a Percocet. I do suspect gouty arthritis. I will refer patient to Ortho for follow-up. This text was generated using [employer] dictation system, please disregard any oddities of phrase or misspellings. Medical Records Medical records reviewed: Yes I reviewed the patient's medical records. Lab Data Lab results reviewed: Yes I reviewed the patient's lab results. Labs: Laboratory Tests Range/Units 07/30/22 07/30/22 08:45 08:45 WBC (4.4-10.8) 10^3/uL 12.39 H RBC (4.36-5.78) 10^6/uL 4.85 Hgb (13.5-17.5) g/dL 14.6 Hct (40.0-50.0) % 44.7 MCV (80-95) fL 92 MCH (27.0-33.0) pg 30.1 MCHC (32.0-36.0) % 32.7 RDW (11.8-14.1) % 12.2 Plt Count (130-400) 10^3/uL 204 MPV (8.0-11.0) fL 10.5 Immature Gran % 0.4 Neutrophils % 71.4 Lymphocytes % 16.1 Monocytes % 8.5 Eosinophils % 3.1 Basophils % 0.5 Nucleated RBC % (0.0-0.3) % 0.0 Absolute Neutrophils (1.2-6.7) 10^3/uL 8.85 H Absolute Lymphocytes (1.2-3.4) 10^3/uL 1.99 Absolute Monocytes (0.1-0.8) 10^3/uL 1.05 H Absolute Eosinophils (0.0-0.7) 10^3/uL 0.38 Absolute Basophils (0.0-0.2) 10^3/uL 0.06 Sodium (136-145) mmol/L 142 Potassium (3.5-5.1) mmol/L 4.0 Chloride (98-107) mmol/L 106 Carbon Dioxide (21.0-32.0) mmol/L 25.0 Anion Gap (3-11) mmol/L 11.0 BUN (7-18) mg/dL 25 H Creatinine (0.70-1.30) mg/dL 2.5 H Est GFR (CKD-EPI 2020) (mL/min/1.73m2) 24.56 Glucose (74-106) mg/dL 226 H Uric Acid (3.5-7.2) mg/dL 9.0 H Calcium (8.5-10.1) mg/dL 9.3 Total Bilirubin (0.2-1.0) mg/dL 0.8 AST (15-37) U/L 26 ALT (16-63) U/L 41 Alkaline Phosphatase (46-116) U/L 134 H Total Protein (6.4-8.2) g/dL 7.5 Albumin (3.4-5.0) g/dL 3.6 HPI General Mode of arrival: wheelchair . Date/Time Provider Initiated Documentation: 07/30/22 08:15 . Limitations to Documentation: no limitations . Information obtained by: patient, family, RN notes reviewed and old records reviewed . HPI Narrative: 86-year-old male presents to the ER with a chief complaint of left knee swelling and redness which has been ongoing for the last 3 to 4 days. Patient does report pain with flexion and extension. Does have a history of hypertension coronary artery disease, atrial fibrillation NSTEMI, type 2 diabetes, chronic kidney disease stage III cardiomyopathy anemia and hearing impairment. He does take apixaban. He denies any known injuries. He did see his PCP yesterday who applied an Bryan bandage and given some topical cream which he has not picked up from the pharmacy yet. Denies any fever or chills. Related Data Home Medications Medication Instructions Recorded Confirmed ibuprofen 200 mg capsule 600 - 800 mg PO PRN PRN 09/05/15 07/30/22 atorvastatin 40 mg tablet (Lipitor) 40 mg PO QPM 09/20/17 07/30/22 fluocinolone 0.01 % topical cream 1 applic topical BID 01/14/20 07/30/22 magnesium oxide 400 mg PO BID 01/14/20 07/30/22 nitroglycerin 0.4 mg sublingual 0.4 mg sublingual Q5 MIN PRN X3 PRN 01/14/20 07/30/22 tablet (Nitrostat) acetaminophen 500 mg tablet 1,000 mg PO Q8H PRN 02/29/20 07/30/22 (Acetaminophen Extra Strength) cyanocobalamin (vitamin B-12) 1,000 mcg PO DAILY 03/01/20 07/30/22 1,000 mcg tablet nystatin 100,000 unit/gram topical 1 applic topical BID #30 grams 03/05/20 07/30/22 cream amiodarone 200 mg tablet 200 mg PO DAILY 11/27/20 07/30/22 lisinopril 5 mg tablet 5 mg PO DAILY 11/27/20 07/30/22 metoprolol succinate 50 mg 50 mg PO DAILY 11/27/20 07/30/22 tablet,extended release 24 hr tamsulosin 0.4 mg capsule 0.4 mg PO DAILY 11/27/20 07/30/22 alogliptin 6.25 mg tablet 6.25 mg PO DAILY 05/31/21 07/30/22 apixaban 2.5 mg tablet 2.5 mg PO BID 05/31/21 07/30/22 betamethasone dipropionate 0.05 % 1 applic topical BID PRN 05/31/21 07/30/22 topical cream cholecalciferol (vitamin D3) 25 25 mcg PO DAILY 05/31/21 07/30/22 mcg (1,000 unit) capsule insulin aspart U-100 100 unit/mL 9 unit subcut TID 05/31/21 07/30/22 subcutaneous solution (Novolog U-100 Insulin aspart) amlodipine 2.5 mg tablet 2.5 mg PO DAILY 07/11/22 07/30/22 furosemide 40 mg tablet 80 mg PO DAILY swelling 07/11/22 07/30/22 insulin detemir U-100 100 unit/mL 25 unit subcut DAILY 07/11/22 07/30/22 subcutaneous solution (Levemir U-100 Insulin) indomethacin 25 mg capsule 25 mg PO TID PRN pain 7 days #21 07/30/22 caps Previous Rx's Medication Instructions Recorded nystatin 100,000 unit/gram topical 1 applic topical BID #30 grams 03/05/20 cream indomethacin 25 mg capsule 25 mg PO TID PRN pain 7 days #21 07/30/22 caps Allergies Allergy/AdvReac Type Severity Reaction Status Date / Time adhesive Allergy Severe significant Verified 07/30/22 08:28 skin reaction, swelling, erythema, discomfort neomycin Allergy Verified 07/30/22 08:28 General Stated Complaint: Orthopedic ASTON: 4 Review of Systems Musculoskeletal Musculoskeletal: Reports as per HPI, Reports arthralgias and Reports joint swelling Integumentary/Breasts Skin/Breast: Reports erythema PFSH All Active Problems (Updated 07/30/22 @ 09:41 by Clementine Tirado NP) Gouty arthritis of left knee (Acute) Medication management (Acute) amiodarone for afib EKG Q 12 Months RH HTN (hypertension) (Acute) CAD (coronary artery disease) (Chronic) Dermatitis (Acute) Atrial fibrillation (Chronic) Chest pain (Acute) Acute non-ST elevation myocardial infarction (NSTEMI) (Acute) Wound dehiscence, surgical (Acute) Type 2 diabetes mellitus (Chronic) Fatty liver (Acute) Chronic kidney disease, stage 3 (Chronic) Mass of salivary gland (Acute) Ischemic cardiomyopathy (Chronic) Skin lesion of scalp (Acute) Anemia (Chronic) Hearing impairment (Acute) Medical History AAA (abdominal aortic aneurysm) Atrial flutter Balanitis 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) CHF (congestive heart failure) Diabetes mellitus Diverticulitis of large intestine with abscess Edema Erectile dysfunction Former smoker Cruz's disease HLD (hyperlipidemia) Hypercholesterolemia Hypomagnesemia Myocardial infarct Phimosis Phimosis (10/17/15) Renal insufficiency Surgical History H/O phimosis s/p repair History of endovascular stent graft for abdominal aortic aneurysm (AAA) History of heart artery stent S/P hernia repair S/P left hemicolectomy (~07/19/18) Status post colostomy takedown (~03/01/20) Social History Smoking/Tobacco Use Status: Former Tobacco Use Quit Date: 01/03/17 Tobacco: How many years used: 60 Smoking risk assessment performed?: Yes Alcohol Intake: former Drug use: Never Substance use type: does not use Do you feel safe at home: Yes Do you feel safe in your relationship?: Yes Exam Extrem Left lower extremity: normal capillary refill, edema Details: 2+ and knee Details: tenderness Location: of the infrapatellar area, swelling and warmth Course Vital Signs Vital signs: Vital Signs Temperature 36.7 C 07/30/22 08:22 Pulse 72 07/30/22 08:22 Respiratory Rate 18 07/30/22 08:22 Blood Pressure 164/77 H 07/30/22 08:22 Pulse Oximetry 95 07/30/22 08:22 Temperature 36.7 C 07/30/22 08:22 Temperature Source Oral 07/30/22 08:22 Pulse 72 07/30/22 08:22 Respiratory Rate 18 07/30/22 08:22 Respiratory Effort Normal, Non-Labored 07/30/22 08:26 Blood Pressure 164/77 H 07/30/22 08:22 Pulse Oximetry 95 07/30/22 08:22 Oxygen Delivery Method Room Air 07/30/22 08:22 Oxygen Flow Rate 0 07/30/22 08:22
[2022-07-30 08:56] LABS: Abs Immature Grans 0.05 10^3/uL (0.0-0.06); Absolute Basophil Count 0.06 10^3/uL (0.0-0.2); Absolute Lymphocyte Count 1.99 10^3/uL (1.2-3.4); Absolute Monocyte Count 1.05 10^3/uL (0.1-0.8); Absolute Neutrophil Count 8.85 10^3/uL (1.2-6.7); Basophils % 0.5; Eosinophils % 3.1; HCT 44.7 % (40.0-50.0); HGB 14.6 g/dL (13.5-17.5); Immature Grans % 0.4; Lymphocytes % 16.1; MCH 30.1 pg (27.0-33.0); MCHC 32.7 % (32.0-36.0); MCV 92 fL (80-95); MPV 10.5 fL (8.0-11.0); Monocytes % 8.5; Neutrophils % 71.4; Platelet Count 204 10^3/uL (130-400); RBC 4.85 10^6/uL (4.36-5.78); RDW 12.2 % (11.8-14.1); RDW-SD 41.4 fL; WBC 12.39 10^3/uL (4.4-10.8)
[2022-07-30 08:57] LABS: Absolute Eosinophil Count 0.38 10^3/uL (0.0-0.7)
[2022-07-30] MEDS: oxyCODONE 5 mg/Acetaminophen 325 mg TAB 1 TAB PO (09:10)
[2022-07-30 09:20] LABS: ALT 41 U/L (16-63); AST 26 U/L (15-37); Albumin 3.6 g/dL (3.4-5.0); Alkaline Phosphatase 134 U/L (46-116); BUN 25 mg/dL (7-18); Bilirubin, Total 0.8 mg/dL (0.2-1.0); CREATININE 2.5 mg/dL (0.70-1.30); Calcium 9.3 mg/dL (8.5-10.1); Chloride 106 mmol/L (98-107); Estimated GFR 24.56 (mL/min/1.73m2); Glucose 226 mg/dL (74-106); Sodium 142 mmol/L (136-145); Total Protein 7.5 g/dL (6.4-8.2)
[2022-07-30] MEDS: Indomethacin 25 MG CAP 50 MG PO (10:15)
[2022-07-30 10:18] VITALS: BP 155/89; PULSE 78; O2SAT 95
== END 2022-07-30 10:27 | disposition home or self-care (01) ==
PROVIDERS: Emergency Provider Registered Nurse Emergency; PCP Family Medicine
DX: M10.9 Gout, unspecified (principal); I13.0 Hypertensive heart and chronic kidney disease with heart failure and stage 1 through stage 4 chronic kidney disease, or unspecified chronic kidney disease; E11.22 Type 2 diabetes mellitus with diabetic chronic kidney disease; N18.30 Chronic kidney disease, stage 3 unspecified; I25.10 Atherosclerotic heart disease of native coronary artery without angina pectoris; I48.91 Unspecified atrial fibrillation; I25.2 Old myocardial infarction; Z79.01 Long term (current) use of anticoagulants; Z79.4 Long term (current) use of insulin
CPT/HCPCS: 36415; 73562; 80053; 99283; 84550; 85025; 99284

== ENCOUNTER 2022-08-08 15:04 | Outpatient (CLI) | payer MEDICARE, SELFPAY ==
--- NOTE | 2022-08-08 14:05 | DI.RAD_ITS ---
Exam(s) XR CHEST 2V PA LATERAL EXAM: XR CHEST 2V PA LATERAL CLINICAL HISTORY: COUGH,R05.8. TECHNIQUE: 2D digital imaging was performed. COMPARISON: CR,XR XR PORTABLE CHEST AP from 11/16/2021 FINDINGS: 2 views: Heart size is upper normal. The mediastinum is not widened. Tortuous descending thoracic aorta noted. Lungs are clear. No infiltrates nor pleural effusions. No pulmonary edema. No pneumothorax. IMPRESSION: No acute pulmonary findings. Mild cardiomegaly. No pulmonary edema. DATA REPOSITORY: RADIATION DOSE DELIVERED:
== END 2022-08-08 15:24 ==
PROVIDERS: PCP Family Medicine; Visit Provider Physician Assistant Medical
DX: R05.8 Other specified cough (principal); I51.7 Cardiomegaly
CPT/HCPCS: 71046

== ENCOUNTER 2023-03-06 15:57 | Outpatient (REF) | payer MEDICARE, SELFPAY ==
[2023-03-06 19:18] LABS: Albumin 3.5 g/dL (3.4-5.0); Anion Gap 9.5 mmol/L (3-11); BUN 44 mg/dL (7-18); CO2 28.5 mmol/L (21.0-32.0); Calcium 9.7 mg/dL (8.5-10.1); Chloride 103 mmol/L (98-107); Estimated GFR 19.61 (mL/min/1.73m2); Glucose 185 mg/dL (74-106); PHOSPHORUS 3.5 mg/dL (2.6-4.7); Potassium 3.9 mmol/L (3.5-5.1); Sodium 141 mmol/L (136-145)
[2023-03-07 18:52] LABS: Parathyroid Hormone,Intact 104 pg/mL (19-88)
== END 2023-03-06 15:58 | disposition home or self-care (01) ==
LOC: NCHCN 15:57
PROVIDERS: PCP Family Medicine; Visit Provider Family Medicine
DX: N18.4 Chronic kidney disease, stage 4 (severe) (principal)
CPT/HCPCS: 80048; 82040; 83970; 84100

== ENCOUNTER 2023-03-18 09:11 | Outpatient (CLI) | payer MEDICARE, SELFPAY ==
--- NOTE | 2023-03-18 09:00 | RT.EKG_ITS ---
APPROVED REPORT Exam: Resting ECG Reason for Exam: monitoring due to medication Patient Location: O HR:61 bpm ECG Measurements Heart Rate 61 AXIS UT 294 P -34 QRSd 124 QRS 8 QT 470 T 30 QTc 474 Conclusion Sinus rhythm...normal P axis, V-rate 50- 99 Prolonged UT interval...UT >220, V-rate 50- [address] ST-T abnormalities
== END 2023-03-18 09:12 | disposition home or self-care (01) ==
LOC: DI.CARD 09:12
PROVIDERS: PCP Family Medicine; Visit Provider Internal Medicine Cardiovascular Disease
DX: I48.91 Unspecified atrial fibrillation (principal); Z79.899 Other long term (current) drug therapy
CPT/HCPCS: 93010

== ENCOUNTER → 2023-03-18 09:57 | Outpatient (BNVA) | payer MEDICARE, SELFPAY | PROVIDERS: PCP Family Medicine; Referring Provider Family Medicine; Visit Provider Internal Medicine Cardiovascular Disease | DX: I48.0 Paroxysmal atrial fibrillation (principal); Z79.01 Long term (current) use of anticoagulants; I10 Essential (primary) hypertension; I25.10 Atherosclerotic heart disease of native coronary artery without angina pectoris | CPT/HCPCS: 99214 ==

== ENCOUNTER 2023-05-17 03:18 | Emergency (ER) | payer MEDICARE, SELFPAY ==
[2023-05-17] VITALS (34 sets, daily range): BP systolic 106–150; BP diastolic 52–84; PULSE 52–98; RESP 15–28; TEMP 36.3; O2SAT 88–98
--- NOTE | 2023-05-17 03:15 | RT.EKG_ITS ---
APPROVED REPORT Exam: Resting ECG Reason for Exam: chest pain Patient Location: E HR:58 bpm ECG Measurements Heart Rate 58 AXIS NM 306 P -36 QRSd 110 QRS 32 QT 512 T 38 QTc 502 Conclusion Sinus bradycardia...rate< 60 Prolonged NM interval...NM >220, V-rate 50- 90 Prolonged QT interval...QTc >500mS Physician: minimal t wave depressions, unchanged from prior ekgs
--- NOTE | 2023-05-17 03:30 | W.ED.GENAD ---
HPI General Stated Complaint: GenMedical ASTON: 3 Date/Time Provider Initiated Documentation: 05/17/23 03:20. HPI Narrative: 84-year-old male with a past medical history of a AAA, with endovascular stent graft, myocardial infarction with stent, diabetes CKD, CHF, ischemic cardiomyopathy, previous colectomy, high cholesterol, presents today for evaluation of right chest and back pain patient states that 2 days ago he was out shoveling his driveway when he developed shortness of breath, felt notably winded, and developed pain in his central and right chest that radiated to his right back. Patient describes the pain as a chest tightness and pressure. He denies any stabbing ripping or tearing pain. He denies any vomiting or diarrhea. He states that he has been slightly winded over the last few days, but has been able to perform activity without severe deficit. He denies any exertional dyspnea with mild activities. He denies any numbness tingling or weakness. No vomiting or diarrhea. No headache or neck pain. He is uncertain if this feels similar or different to his previous cardiac episodes. He denies any cough, fever or chills otherwise. Related Data Home Medications Medication Instructions Recorded Confirmed ibuprofen 200 mg capsule 600 - 800 mg PO PRN PRN 09/05/15 05/17/23 atorvastatin 40 mg tablet (Lipitor) 40 mg PO QPM 09/20/17 05/17/23 fluocinolone 0.01 % topical cream 1 applic topical BID 01/14/20 05/17/23 magnesium oxide 400 mg PO BID 01/14/20 05/17/23 nitroglycerin 0.4 mg sublingual 0.4 mg sublingual Q5 MIN PRN X3 PRN 01/14/20 05/17/23 tablet (Nitrostat) acetaminophen 500 mg tablet 1,000 mg PO Q8H PRN 02/29/20 05/17/23 (Acetaminophen Extra Strength) cyanocobalamin (vitamin B-12) 1,000 mcg PO DAILY 03/01/20 05/17/23 1,000 mcg tablet nystatin 100,000 unit/gram topical 1 applic topical BID #30 grams 03/05/20 05/17/23 cream amiodarone 200 mg tablet 200 mg PO DAILY 11/27/20 05/17/23 lisinopril 5 mg tablet 5 mg PO DAILY 11/27/20 05/17/23 metoprolol succinate 50 mg 50 mg PO DAILY 11/27/20 05/17/23 tablet,extended release 24 hr tamsulosin 0.4 mg capsule 0.4 mg PO DAILY 11/27/20 05/17/23 apixaban 2.5 mg tablet 2.5 mg PO BID 05/31/21 05/17/23 betamethasone dipropionate 0.05 % 1 applic topical BID PRN 05/31/21 05/17/23 topical cream insulin aspart U-100 100 unit/mL 9 unit subcut TID 05/31/21 05/17/23 subcutaneous solution (Novolog U-100 Insulin aspart) amlodipine 2.5 mg tablet 2.5 mg PO DAILY 07/11/22 05/17/23 furosemide 40 mg tablet 80 mg PO DAILY swelling 07/11/22 05/17/23 insulin detemir U-100 100 unit/mL 25 unit subcut DAILY 07/11/22 05/17/23 subcutaneous solution (Levemir U-100 Insulin) albuterol sulfate 90 mcg/actuation inhalation 05/17/23 aerosol inhaler Previous Rx's Medication Instructions Recorded nystatin 100,000 unit/gram topical 1 applic topical BID #30 grams 03/05/20 cream Allergies Allergy/AdvReac Type Severity Reaction Status Date / Time adhesive Allergy Severe significant Verified 05/17/23 03:28 skin reaction, swelling, erythema, discomfort neomycin Allergy Verified 05/17/23 03:28 Review of Systems All systems reviewed & are unremarkable except as noted in HPI and below PFSH All Active Problems (Updated 05/17/23 @ 08:16 by Ryan Stafford DO) Back pain (Acute) Medication management (Acute) amiodarone for afib EKG Q 12 Months RH HTN (hypertension) (Acute) CAD (coronary artery disease) (Chronic) Dermatitis (Acute) Atrial fibrillation (Chronic) Chest pain (Acute) Acute non-ST elevation myocardial infarction (NSTEMI) (Acute) Wound dehiscence, surgical (Acute) Type 2 diabetes mellitus (Chronic) Fatty liver (Acute) Chronic kidney disease, stage 3 (Chronic) Mass of salivary gland (Acute) Ischemic cardiomyopathy (Chronic) Skin lesion of scalp (Acute) Anemia (Chronic) Hearing impairment (Acute) Medical History HLD (hyperlipidemia) Former smoker Balanitis Atrial flutter Edema Cruz's disease Phimosis (10/17/15) Erectile dysfunction AAA (abdominal aortic aneurysm) Hypomagnesemia CHF (congestive heart failure) Renal insufficiency 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) Diverticulitis of large intestine with abscess Hypercholesterolemia Diabetes mellitus Myocardial infarct Phimosis Surgical History Status post colostomy takedown (~03/01/20) S/P left hemicolectomy (~07/19/18) H/O phimosis s/p repair History of heart artery stent S/P hernia repair History of endovascular stent graft for abdominal aortic aneurysm (AAA) Social History Smoking/Tobacco Use Status: Former Tobacco Use Quit Date: 01/03/17 Tobacco: How many years used: 60 Smoking risk assessment performed?: Yes Alcohol Intake: former Drug use: Never Substance use type: does not use Do you feel safe at home: Yes Do you feel safe in your relationship?: Yes Exam Narrative Exam Narrative: 1.Const: Well-nourished, Well-developed, appearing stated age 2.Eyes: PERRL, no conjunctival injection, and symmetrical lids. 3.ENT: Atraumatic external nose and ears. Moist MM. Neck: Symmetric, trachea midline, No thyromegaly. 4.CVS: +S1/S2, No murmurs or gallops. Peripheral pulses 2+ and equal in all extremities. Brisk capillary refill in all extremities. Radial pulses +2 bilaterally 5.RESP: Unlabored respiratory effort. Clear to auscultation bilaterally. No wheezes rales or rhonchi 6.GI: Soft, Nontender/Nondistended, No hepatosplenomegaly. No guarding or rebound. 7.MSK: Normocephalic/Atraumatic, Extremities w/o deformity or ttp No cyanosis or clubbing, Normal movement of all extremities. No reproducible chest neck or shoulder pain on palpation, however when raising the patient's arms over his shoulders or head he does develop recurrence of the right shoulder back and neck pain. 8.Skin: Warm, Dry. No rashes or lesions. 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 Sensation grossly intact, no focal neurologic deficits. 10.Psych: (AAO) x3. Appropriate mood and affect Course Vital Signs Vital signs: Vital Signs Temperature 36.3 C L 05/17/23 03:22 Pulse 61 05/17/23 03:22 Respiratory Rate 18 05/17/23 03:22 Blood Pressure 126/84 05/17/23 03:22 Pulse Oximetry 94 05/17/23 03:22 Temperature 36.3 C L 05/17/23 03:22 Temperature Source Skin 05/17/23 03:22 Pulse 61 05/17/23 03:22 Respiratory Rate 18 05/17/23 03:22 Respiratory Effort Normal 05/17/23 03:28 Blood Pressure 126/84 05/17/23 03:22 Blood Pressure Position Sitting 05/17/23 03:22 Pulse Oximetry 94 05/17/23 03:22 Oxygen Delivery Method Room Air 05/17/23 03:22 Oxygen Flow Rate 0 05/17/23 03:22 Medical Decision Making 84-year-old male with a past medical history of a AAA, with endovascular stent graft, myocardial infarction with stent, diabetes CKD, CHF, ischemic cardiomyopathy, previous colectomy, high cholesterol, presents today for evaluation of right chest and back pain patient states that 2 days ago he was out shoveling his driveway when he developed shortness of breath, felt notably winded, and developed pain in his central and right chest that radiated to his right back. Patient describes the pain as a chest tightness and pressure. He denies any stabbing ripping or tearing pain. He denies any vomiting or diarrhea. He states that he has been slightly winded over the last few days, but has been able to perform activity without severe deficit. He denies any exertional dyspnea with mild activities. He denies any numbness tingling or weakness. No vomiting or diarrhea. No headache or neck pain. He is uncertain if this feels similar or different to his previous cardiac episodes. He denies any cough, fever or chills otherwise. Exam demonstrates a well-appearing male, normal pulses bilaterally. No evidence of vascular deficit. Lung sounds are clear. Vital signs are stable. No reproducible pain on palpation of the chest back or neck, however when passively raising the arms above the shoulders and neck patient does have recurrence of his previous pain. Symptoms may be secondary to musculoskeletal etiology, however with the patient's significant history of cardiac disease, AAA, and coronary artery disease, I am concerned for potential cardiac or vascular pathology. Will get an EKG, apply Lidoderm patches to the chest and neck, get a CTA to evaluate for vascular pathology, monitor closely and reassess. 7:31 AM Patient had no improvement of his symptoms with Lidoderm patches, however he has had complete resolution of the pain in his neck and back with a single dose of cyclobenzaprine. Patient feels well and would like to go home. Pain has completely resolved. Troponin normal, EKG stable/unchanged. Laboratory workup demonstrates stable electrolytes, however creatinine is elevated at 3.7 which is higher than his normal baseline of 3. While he does not demonstrate evidence of renal failure as he has currently stable electrolytes, he is urinating, and denies any Motrin use, I do worry that he may have a mild acute kidney injury. Patient would prefer to go home, but he has stated that he is willing to receive some IV fluids and have his creatinine rechecked. We will perform this, otherwise patient appears notably stable for discharge. Symptoms appear inconsistent with dissection, aneurysm worsening, or acute cardiac or intrathoracic process. Symptoms at this time appear clinically consistent with musculoskeletal spasm secondary to shoveling snow at the age of 87. FINDINGS: Lungs: No significant airspace consolidation concerning for pneumonia. Cystic changes again noted in the medial basal segment of the right lower lobe similar to prior exam. Pleural spaces: No pleural effusion. No pneumothorax. Heart: The heart is mildly enlarged for size. Coronary arteries: Coronary artery calcifications noted. Lymph nodes: Unremarkable. No enlarged lymph nodes. Vasculature: The ascending thoracic aorta measures up to 4.5 cm in diameter similar to prior exam. Bones/joints: Multilevel degenerative changes in the thoracic spine. Soft tissues: Unremarkable. IMPRESSION: 1. No acute thoracic abnormality identified, within the limitations of this noncontrast exam. 2. The ascending thoracic aorta measures up to 4.5 cm in diameter similar to prior exam FINDINGS: Liver: The liver is normal in size and contour. Gallbladder and bile ducts: The gallbladder appears unremarkable. No intra- or extra-hepatic biliary ductal dilatation. Pancreas: The pancreas appears normal. Spleen: The spleen appears normal. Adrenal glands: The adrenals appear normal. Kidneys and ureters: Bilateral renal cortical thinning. Fluid density cyst along the lower outer margin of the left kidney. Stomach and bowel: The stomach appears unremarkable. The small bowel loops are not abnormally dilated. The large bowel loops are not abnormally dilated. Colonic diverticulosis without signs of acute diverticulitis. Postsurgical changes at the rectosigmoid junction. Appendix: No signs of appendicitis. Intraperitoneal space: No ascites or significant fluid collection. Vasculature: Infrarenal abdominal aortic endograft in place. The [place] infrarenal abdominal aortic aneurysm measuring up to approximately 9.7 cm in diameter on the sagittal plane, minimally enlarged compared to prior exam when it measured up to 9.4 cm in 2020. The aneurysm measures up to 7.6 cm in the medial-lateral dimension on the axial plane compared to the prior 7.0 cm in 2020. No signs concerning for of aortic leak/rupture. Lymph nodes: There are no enlarged lymph nodes. Urinary bladder: Mild circumferential wall thickening of the urinary bladder may be related to nondistention. No significant surrounding inflammatory changes concerning for cystitis. Reproductive: Surgical clips in the scrotum noted. Bones/joints: Multilevel degenerative changes in the lumbar spine. Soft tissues: Unremarkable. IMPRESSION: Minimally enlarged [place] abdominal aortic aneurysm sac with aortic endograft in place. Consider nonemergent further evaluation for endoleak. COMMENTS: Evaluation of solid organs and vascular structures is limited as no IV contrast was administered Thank you for allowing us to participate in the care of your patient. Dictated and Authenticated by: Bello Maharaj MD 05/17/2023 6:24 AM Eastern Time ([place] & [place]) Quality:SDOH Health Related Social Needs: No Data to Display Discharge Plan Disposition Patient Disposition: Home Discharge Details Clinical Impression: Back pain Primary Care Provider: Rolando Moise ED Provider: Ryan Stafford Home Meds and New Rx's Prescriptions: No Action lisinopril 5 mg tablet 5 mg PO DAILY amiodarone 200 mg tablet 200 mg PO DAILY Patient Comments: [place]27/20 [place] [facility] [place] was loaded on 400 mg BID for 7 days, RH metoprolol succinate 50 mg tablet extended release 24 hr 50 mg PO DAILY tamsulosin 0.4 mg capsule 0.4 mg PO DAILY amlodipine 2.5 mg tablet 2.5 mg PO DAILY fluocinolone 0.01 % cream 1 applic topical BID magnesium oxide 400 mg magnesium capsule 400 mg PO BID Patient Comments: pt. reports he has been out of it nitroglycerin [Nitrostat] 0.4 mg tablet, sublingual 0.4 mg sublingual Q5 MIN PRN X3 PRN Rx Instructions: as a single dose; administer 5-10 minutes before situation known to precipitate angina attack apixaban 2.5 mg tablet 2.5 mg PO BID Patient Comments: 11/27/20 [place] [facility] [place] to elevated creatinine 2.4 RH betamethasone dipropionate 0.05 % cream 1 applic topical BID PRN insulin aspart U-100 [Novolog U-100 Insulin aspart] 100 unit/mL solution 9 unit subcut TID Levemir U-100 Insulin 100 unit/mL solution 25 unit subcut DAILY ibuprofen 200 MG capsule 600 - 800 mg PO PRN PRN atorvastatin [Lipitor] 40 MG tablet 40 mg PO QPM acetaminophen [Acetaminophen Extra Strength] 500 mg Tablet 1,000 mg PO Q8H PRN cyanocobalamin (vitamin B-12) 1,000 mcg Tablet 1,000 mcg PO DAILY nystatin 100,000 unit/gram cream 1 applic topical BID Qty: 30 0RF Rx Instructions: apply around ostomy site until redness disappears. furosemide 40 mg tablet 80 mg PO DAILY albuterol sulfate 90 mcg/actuation HFA aerosol inhaler INHALATION Patient Comments: INHALE TWO PUFFS BY MOUTH EVERY 4 TO 6 HOURS NEEDED Discharge Instructions Instructions: Back Pain (ED) Additional Instructions: At this time your CAT scan shows stability of your aneurysms. As your symptoms have resolved with the muscle relaxant I do suspect that it is a muscle spasm from shoveling that caused her symptoms. Please take the Flexeril only as needed for the spasms and pain. Please be mindful that this medication can make you lightheaded and slightly confused, so only take it when absolutely needed. Do not operate heavy machinery, climbing high ladders, swim or take a bath while on this medication. Do not operate firearms while on this medication. Additionally your renal function is slightly worse than normal. Please drink plenty of fluids over the next 5 days and follow-up closely with your primary care provider for reassessment. If you notice any worsening of your symptoms, or any new symptoms such as vomiting, diarrhea, fever, chills, shortness of breath, chest pain, numbness, weakness, or fainting , please return immediately to the emergency department for reevaluation. Please follow up with your primary care provider as soon as possible for reassessment and reevaluation. As always, it was a pleasure participating in your medical care today. Referrals: Rolando Moise [Primary Care Provider] -
[2023-05-17] MEDS: Lidocaine 5% Patch 2 PATCH TP (03:34)
[2023-05-17 03:48] LABS: Abs Immature Grans 0.03 10^3/uL (0.0-0.06); Absolute Basophil Count 0.07 10^3/uL (0.0-0.2); Absolute Eosinophil Count 0.34 10^3/uL (0.0-0.7); Absolute Monocyte Count 1.06 10^3/uL (0.1-0.8); Absolute Neutrophil Count 6.91 10^3/uL (1.2-6.7); Basophils % 0.6; Eosinophils % 3.1; HCT 41.7 % (40.0-50.0); HGB 13.6 g/dL (13.5-17.5); Immature Grans % 0.3; Lymphocytes % 23.6; MCH 29.8 pg (27.0-33.0); MCHC 32.6 % (32.0-36.0); MCV 91 fL (80-95); MPV 10.3 fL (8.0-11.0); Monocytes % 9.6; Neutrophils % 62.8; Platelet Count 269 10^3/uL (130-400); RBC 4.56 10^6/uL (4.36-5.78); RDW 12.2 % (11.8-14.1); WBC 11.01 10^3/uL (4.4-10.8)
[2023-05-17 03:59] LABS: PTT Activated 25.4 sec (23.6-32.8); Prothrombin Time 10.5 sec (9.1-11.1)
[2023-05-17 04:02] LABS: ALT 27 U/L (16-63); AST 19 U/L (15-37); Albumin 3.3 g/dL (3.4-5.0); Alkaline Phosphatase 133 U/L (46-116); Anion Gap 8.7 mmol/L (3-11); BUN 47 mg/dL (7-18); Bilirubin, Total 0.6 mg/dL (0.2-1.0); CO2 29.3 mmol/L (21.0-32.0); Calcium 9.3 mg/dL (8.5-10.1); Chloride 104 mmol/L (98-107); Estimated GFR 15.25 (mL/min/1.73m2); Glucose 125 mg/dL (74-106); Potassium 3.9 mmol/L (3.5-5.1); Sodium 142 mmol/L (136-145); Total Protein 7.4 g/dL (6.4-8.2); Troponin I < 50 ng/L (< or =60)
[2023-05-17 04:04] LABS: CREATININE 3.7 mg/dL (0.70-1.30)
--- NOTE | 2023-05-17 04:08 | DI.CT_ITS ---
Exam(s) CT CHEST/ABD/PEL WO EXAM: CT CHEST/ABD/PEL WO CLINICAL HISTORY: right upper chest pain, Hx AAA, renal failure. TECHNIQUE: Imaging Protocol: Axial computed tomography images with coronal and sagittal reformatted images were created and reviewed CONTRAST MATERIAL: Intravenous: none Oral: None COMPARISON: CT CT ABDOMEN PELVIS W from 07/18/[address] CHEST WO from 03/08/2022 FINDINGS: CHEST: LUNGS: No new infiltrates nor pleural effusions. Mild interstitial disease. No findings in the trac hea and mainstem bronchi. There is no bronchiectasis.. MEDIASTINUM: No obvious hilar nor mediastinal adenopathy. Visualized thyroid unremarkable. CARDIAC: Heart size normal. No pericardial effusion. Calcification in the coronary arteries is note d.Diameter of the ascending thoracic aorta is enlarged, measuring 4.5 cm and diameter of the mid aort ic arch is 3.7 cm. Diameter of the proximal descending thoracic aorta is 3.4 cm. Cannot assess for dissection without IV contrast. OSSEOUS: No significant osseous lesions.. ABDOMEN: There is no ascites. LIVER: There are no obvious focal hepatic lesions evident of this noninfused study. GALLBLADDER/BILIARY: No obvious gallbladder pathology. CBD is not dilated. PANCREAS: No evidence of obvious pancreatic mass nor dilatation of the pancreatic duct. SPLEEN: Spleen is not enlarged. No obvious intrasplenic lesions. ADRENALS: There are no significant adrenal masses. KIDNEYS: Right kidney unremarkable. There is an exophytic 2 cm cyst inferior pole left kidney noted which does not require further workup. Also a medial cortex calcification. Benign appearance. Also unchanged.. No solid renal masses. ABDOMINAL AORTA: There is an aortic EVAR endo graft. [place] sac measurement is 9.5 Cm but cannot as sess for active endoleak without IV contrast. LYMPH NODES: There is no retroperitoneal nor para-aortic adenopathy. ABDOMINAL WALL/GI: No evidence of significant anterior abdominal wall nor inguinal hernia. There has been partial resection of the sigmoid. Anastomosis appears unremarkable. There are multip le diverticuli in the colon above the anastomosis as well as in the entire left side of the colon and distal transverse colon. However there is no evidence of acute diverticulitis. No evidence of appendicitis. Appendix may be surgically absent. PELVIS: LYMPH NODES: There is no intrapelvic nor inguinal adenopathy. GI: No evidence of appendicitis.No evidence of sigmoid diverticulitis. URINARY BLADDER: Bladder wall is uniformly thickened. REPRODUCTIVE: Prostate mildly enlarged. OSSEOUS: No fractures. Multilevel chronic degenerative disc disease. IMPRESSION: 1. When compared to the prior CT scan of July 2018 and more recent chest CT scan of March 2022 th ere has been interval partial resection of the sigmoid. There is diverticulosis of the colon above t his level without evidence of acute diverticulitis. No abnormality seen at the anastomosis. 2. Diameter of the ascending thoracic aorta is enlarged, measuring 4.5 cm. 3. Abdominal aortic EVAR in place. Maximum diameter of the [place] aortic sac is 9.5 cm but cannot as sess accurately for endoleak without IV contrast. Given that the size of the sac has slightly increa sed when compared to CT scan of 07/18/2018 I recommend follow-up dedicated contrast infused study kaylene luation for presence of possible endoleak. 4. There is uniform thickening of the urinary bladder wall. RADIATION DOSE DELIVERED: 1,206.52mGy.cm Total DLP DATA REPOSITORY: All CT scans at this facility are submitted to the National Radiology Data Registry (NRDR) Dose Index Registry (DIR) with the [employer] (ACR). RADIATION OPTIMIZATION: All CT scans at this facility use at least one of these dose optimization te chniques: automated exposure control; mA and/or kV adjustment per patient size (includes targeted exa ms where dose is matched to clinical indication); or iterative reconstruction.
[2023-05-17] MEDS: Cyclobenzaprine 10 MG TAB PO (05:22)
--- NOTE | 2023-05-17 06:24 | DI.VRAD_ITS ---
PROCEDURE INFORMATION: Exam: CT Chest Without Contrast; Diagnostic Exam date and time: 05/17/2023 4:28 AM Age: 87 years old Clinical indication: Chest pressure; Other: Chest pain; Additional info: Right upper chest pain, h/o aaa, renal failure TECHNIQUE: Imaging protocol: Diagnostic computed tomography of the chest without contrast. COMPARISON: CT CHEST WO 03/08/2022 9:27 AM FINDINGS: Lungs: No significant airspace consolidation concerning for pneumonia. Cystic changes again noted in the medial basal segment of the right lower lobe similar to prior exam. Pleural spaces: No pleural effusion. No pneumothorax. Heart: The heart is mildly enlarged for size. Coronary arteries: Coronary artery calcifications noted. Lymph nodes: Unremarkable. No enlarged lymph nodes. Vasculature: The ascending thoracic aorta measures up to 4.5 cm in diameter similar to prior exam. Bones/joints: Multilevel degenerative changes in the thoracic spine. Soft tissues: Unremarkable. IMPRESSION: 1. No acute thoracic abnormality identified, within the limitations of this noncontrast exam. 2. The ascending thoracic aorta measures up to 4.5 cm in diameter similar to prior exam. PROCEDURE INFORMATION: Exam: CT Abdomen And Pelvis Without Contrast Exam date and time: 05/17/2023 4:28 AM Age: 87 years old Clinical indication: Chest pressure; Other: Chest pain; Additional info: Right upper chest pain, h/o aaa, renal failure TECHNIQUE: Imaging protocol: Computed tomography of the abdomen and pelvis without contrast. COMPARISON: 1. CT CHEST/ABD/PEL WO 11/07/2020 3:[address] ABDOMEN PELVIS W 07/18/2018 8:40 AM FINDINGS: Liver: The liver is normal in size and contour. Gallbladder and bile ducts: The gallbladder appears unremarkable. No intra- or extra-hepatic biliary ductal dilatation. Pancreas: The pancreas appears normal. Spleen: The spleen appears normal. Adrenal glands: The adrenals appear normal. Kidneys and ureters: Bilateral renal cortical thinning. Fluid density cyst along the lower outer margin of the left kidney. Stomach and bowel: The stomach appears unremarkable. The small bowel loops are not abnormally dilated. The large bowel loops are not abnormally dilated. Colonic diverticulosis without signs of acute diverticulitis. Postsurgical changes at the rectosigmoid junction. Appendix: No signs of appendicitis. Intraperitoneal space: No ascites or significant fluid collection. Vasculature: Infrarenal abdominal aortic endograft in place. The [place] infrarenal abdominal aortic aneurysm measuring up to approximately 9.7 cm in diameter on the sagittal plane, minimally enlarged compared to prior exam when it measured up to 9.4 cm in 2020. The aneurysm measures up to 7.6 cm in the medial-lateral dimension on the axial plane compared to the prior 7.0 cm in 202. No signs concerning for of aortic leak/rupture. Lymph nodes: There are no enlarged lymph nodes. Urinary bladder: Mild circumferential wall thickening of the urinary bladder may be related to nondistention. No significant surrounding inflammatory changes concerning for cystitis. Reproductive: Surgical clips in the scrotum noted. Bones/joints: Multilevel degenerative changes in the lumbar spine. Soft tissues: Unremarkable. IMPRESSION: Minimally enlarged [place] abdominal aortic aneurysm sac with aortic endograft in place. Consider nonemergent further evaluation for endoleak. COMMENTS: Evaluation of solid organs and vascular structures is limited as no IV contrast was administered. Dictated and Authenticated by: Bello Maharaj MD. Ordering:ROSALIE Davis MD
[2023-05-17] MEDS: Normal Saline 500 ML IV (07:22)
--- NOTE | 2023-05-17 07:59 | ED.PROG_ITS ---
Date of service: 05/17/23 Time of Service: 09:14 Medical Decision Making I received signout on this 87-year-old male in the emergency department in the setting of back and neck pain. His symptoms began 2 to 3 days ago after shoveling. He had a reassuring dry CT chest abdomen pelvis. His symptoms have improved considerably status post cyclobenzaprine. He was found to have an YEYO. He has taken no ibuprofen at home. He has had no GI losses and denied nausea and vomiting and diarrhea. He is pending a repeat Chem-7 following 500 cc of crystalloid. He has been written for contingent discharge. 9:13 AM Patient's Chem-7 showed mildly improved renal function. He is eating and drinking. He has been discharged with short course of cyclobenzaprine. Will advise outpatient primary care follow-up next week. Negative repeat troponin. No reason to suspect ongoing worsening of renal function. Quality:[facility] Health Related Social Needs: No Data to Display Sign Out Sign Out Data: Sign Out Comment: Musculoskeletal back and neck pain which resolved with cyclobenzaprine. Follow-up on repeat basic metabolic panel to make sure renal f unction is improving after fluid rehydration. Recommend close outpatient follow-up Last updated by Ryan Stafford DO at 05/17/23 08:25 Discharge Plan Disposition Patient Disposition: Home Discharge Details Clinical Impression: Back pain Primary Care Provider: Rolando Moise ED Provider: Rolando Méndez Home Meds and New Rx's Prescriptions: Continued lisinopril 5 mg tablet 5 mg PO DAILY amiodarone 200 mg tablet 200 mg PO DAILY Patient Comments: 11/27/20 started at [facility] [place] for afib, pt was loaded on 400 mg BID for 7 days, RH metoprolol succinate 50 mg tablet extended release 24 hr 50 mg PO DAILY tamsulosin 0.4 mg capsule 0.4 mg PO DAILY amlodipine 2.5 mg tablet 2.5 mg PO DAILY fluocinolone 0.01 % cream 1 applic topical BID magnesium oxide 400 mg magnesium capsule 400 mg PO BID Patient Comments: pt. reports he has been out of it nitroglycerin [Nitrostat] 0.4 mg tablet, sublingual 0.4 mg sublingual Q5 MIN PRN X3 PRN Rx Instructions: as a single dose; administer 5-10 minutes before situation known to precip itate angina attack apixaban 2.5 mg tablet 2.5 mg PO BID Patient Comments: 11/27/20 started at [facility] [place] due to elevated creatinine 2.4 RH betamethasone dipropionate 0.05 % cream 1 applic topical BID PRN insulin aspart U-100 [Novolog U-100 Insulin aspart] 100 unit/mL solution 9 unit subcut TID Levemir U-100 Insulin 100 unit/mL solution 25 unit subcut DAILY ibuprofen 200 MG capsule 600 - 800 mg PO PRN PRN atorvastatin [Lipitor] 40 MG tablet 40 mg PO QPM acetaminophen [Acetaminophen Extra Strength] 500 mg Tablet 1,000 mg PO Q8H PRN cyanocobalamin (vitamin B-12) 1,000 mcg Tablet 1,000 mcg PO DAILY nystatin 100,000 unit/gram cream 1 applic topical BID Qty: 30 0RF Rx Instructions: apply around ostomy site until redness disappears. furosemide 40 mg tablet 80 mg PO DAILY albuterol sulfate 90 mcg/actuation HFA aerosol inhaler INHALATION Patient Comments: INHALE TWO PUFFS BY MOUTH EVERY 4 TO 6 HOURS NEEDED Discharge Instructions Instructions: Back Pain (ED) Additional Instructions: At this time your CAT scan shows stability of your aneurysms. As your symptoms have resolved with the muscle relaxant I do suspect that it is a muscle spasm from shoveling that caused her symptoms. Please take the Flexeril only as needed for the spasms and pain. Please be mindful that this medication can make you lightheaded and slightly confused, so only take it when absolutely needed. Do not operate heavy machinery, climbing high ladders, swim or take a bath while on this medication. Do not operate firearms while on this medication. Additionally your renal function is slightly worse than normal. Please drink plenty of fluids over the next 5 days and follow-up closely with your primary care provider for reassessment. If you notice any worsening of your symptoms, or any new symptoms such as vo miting, diarrhea, fever, chills, shortness of breath, chest pain, numbness, weakness, or fainting , please return immediately to the emergency department for reevaluation. Please follow up with your primary care provider as soon as possible for reassessment and reevaluation. As always, it was a pleasure participating in your medical care today. Referrals: Rolando Moise [Primary Care Provider] -
[2023-05-17 09:08] LABS: Anion Gap 6.4 mmol/L (3-11); BUN 41 mg/dL (7-18); CO2 28.6 mmol/L (21.0-32.0); CREATININE 3.4 mg/dL (0.70-1.30); Calcium 8.7 mg/dL (8.5-10.1); Chloride 106 mmol/L (98-107); Estimated GFR 16.88 (mL/min/1.73m2); Glucose 119 mg/dL (74-106); Potassium 3.6 mmol/L (3.5-5.1); Sodium 141 mmol/L (136-145)
[2023-05-17 09:17] LABS: Troponin I < 50 ng/L (< or =60)
[2023-05-17] MEDS: Cyclobenzaprine 10 MG TAB, 3 TABS/BTL PO (09:32)
== END 2023-05-17 09:33 | disposition home or self-care (01) ==
PROVIDERS: Student in an Organized Health Care Education/Training Program; Emergency Provider Emergency Medicine; PCP Family Medicine
DX: M54.9 Dorsalgia, unspecified (principal); M25.511 Pain in right shoulder; M25.512 Pain in left shoulder; M54.2 Cervicalgia; Y93.H1 Activity, digging, shoveling and raking; Z86.79 Personal history of other diseases of the circulatory system; R06.02 Shortness of breath; R07.9 Chest pain, unspecified
CPT/HCPCS: 00123; 71250; 80048; 80053; 93005; 96360; 99284; 74176; 84484; 85025; 85610; 85730; 93010; 99283

== ENCOUNTER 2023-06-05 10:23 | Outpatient (REF) | payer MEDICARE, SELFPAY ==
[2023-06-05 16:19] LABS: Hemoglobin A1C 6.7 % (<5.7)
[2023-06-05 16:52] LABS: Anion Gap 9.8 mmol/L (3-11); BUN 28 mg/dL (7-18); CO2 26.2 mmol/L (21.0-32.0); CREATININE 2.7 mg/dL (0.70-1.30); Calcium 9.6 mg/dL (8.5-10.1); Chloride 109 mmol/L (98-107); Estimated GFR 22.26 (mL/min/1.73m2); Glucose 116 mg/dL (74-106); Potassium 4.3 mmol/L (3.5-5.1); Sodium 145 mmol/L (136-145)
[2023-06-05 17:46] LABS: COMMENT (LAB VIEW ONLY) 75.38 mg/dL; PROTEIN 31.5 mg/dL; Prot/Crea Ur Ratio 0.41
== END 2023-06-05 10:24 | disposition home or self-care (01) ==
LOC: NCHCN 10:23
PROVIDERS: PCP Family Medicine; Visit Provider Family Medicine
DX: E11.9 Type 2 diabetes mellitus without complications (principal); N18.4 Chronic kidney disease, stage 4 (severe)
CPT/HCPCS: 80048; 82565; 83036; 84156

== ENCOUNTER 2023-07-24 12:45 | Outpatient (REF) | payer MEDICARE, SELFPAY ==
[2023-07-24 16:14] LABS: Anion Gap 9.2 mmol/L (3-11); BUN 41 mg/dL (7-18); CO2 27.8 mmol/L (21.0-32.0); CREATININE 3.3 mg/dL (0.70-1.30); Chloride 106 mmol/L (98-107); Estimated GFR 17.49 (mL/min/1.73m2); Glucose 223 mg/dL (74-106); Sodium 143 mmol/L (136-145)
== END 2023-07-24 12:46 | disposition home or self-care (01) ==
LOC: NCHCN 12:45
PROVIDERS: PCP Family Medicine; Visit Provider Family Medicine
DX: N18.4 Chronic kidney disease, stage 4 (severe) (principal)
CPT/HCPCS: 80048

== ENCOUNTER 2023-08-17 08:08 | Emergency (ER) | payer MEDICARE, SELFPAY ==
[2023-08-17 08:11] VITALS: BP 120/59; PULSE 60; RESP 18; TEMP 36.5; O2SAT 96
--- NOTE | 2023-08-17 08:21 | ED.GENADUL_ITS ---
Discharge Plan Disposition Patient Disposition: Home Condition: Stable Discharge Details Clinical Impression: Olecranon bursitis, left elbow Primary Care Provider: Rolando Moise ED Provider: Isac Burgos Home Meds and New Rx's Prescriptions: New prednisone 20 mg tablet 60 mg PO DAILY 5 Days Qty: 15 0RF Continued lisinopril 5 mg tablet 5 mg PO DAILY amiodarone 200 mg tablet 200 mg PO DAILY Patient Comments: 11/27/20 started at [facility] [place] for afib, pt was loaded on 400 mg BID for 7 days, RH metoprolol succinate 50 mg tablet extended release 24 hr 50 mg PO DAILY tamsulosin 0.4 mg capsule 0.4 mg PO DAILY amlodipine 2.5 mg tablet 2.5 mg PO DAILY fluocinolone 0.01 % cream 1 applic topical BID magnesium oxide 400 mg magnesium capsule 400 mg PO BID Patient Comments: pt. reports he has been out of it nitroglycerin [Nitrostat] 0.4 mg tablet, sublingual 0.4 mg sublingual Q5 MIN PRN X3 PRN Rx Instructions: as a single dose; administer 5-10 minutes before situation known to pr ecipitate angina attack apixaban 2.5 mg tablet 2.5 mg PO BID Patient Comments: 11/27/20 started at [facility] [place] due to elevated creatinine 2.4 RH betamethasone dipropionate 0.05 % cream 1 applic topical BID PRN insulin aspart U-100 [Novolog U-100 Insulin aspart] 100 unit/mL solution 9 unit subcut TID Levemir U-100 Insulin 100 unit/mL solution 25 unit subcut DAILY ibuprofen 200 MG capsule 600 - 800 mg PO PRN PRN atorvastatin [Lipitor] 40 MG tablet 40 mg PO QPM acetaminophen [Acetaminophen Extra Strength] 500 mg Tablet 1,000 mg PO Q8H PRN cyanocobalamin (vitamin B-12) 1,000 mcg Tablet 1,000 mcg PO DAILY nystatin 100,000 unit/gram cream 1 applic topical BID Qty: 30 0RF Rx Instructions: apply around ostomy site until redness disappears. furosemide 40 mg tablet 80 mg PO DAILY albuterol sulfate 90 mcg/actuation HFA aerosol inhaler INHALATION Patient Comments: INHALE TWO PUFFS BY MOUTH EVERY 4 TO 6 HOURS NEEDED HPI General Mode of arrival: ambulatory . Date/Time Provider Initiated Documentation: 08/17/23 08:09 . Limitations to Documentation: no limitations . Information obtained by: patient . History of Present Illness 87 year old M presents to the emergency department with the chief complaint of left elbow swelling, described as mild, and is localized to the left and upper extremity. and it has been constant. No relieving factors improve symptom(s), No exacerbating factors reported . Patient notes no other symptoms.; denies chest pain, fever/chills and shortness of breath. Patient did receive the following treatments prior to arrival, none Related Data Home Medications Medication Instructions Recorded Confirmed ibuprofen 200 mg capsule 600 - 800 mg PO PRN PRN 09/05/15 05/17/23 atorvastatin 40 mg tablet (Lipitor) 40 mg PO QPM 09/20/17 05/17/23 fluocinolone 0.01 % topical cream 1 applic topical BID 01/14/20 05/17/23 magnesium oxide 400 mg PO BID 01/14/20 05/17/23 nitroglycerin 0.4 mg sublingual 0.4 mg sublingual Q5 MIN PRN X3 PRN 01/14/20 05/17/23 tablet (Nitrostat) acetaminophen 500 mg tablet 1,000 mg PO Q8H PRN 02/29/20 05/17/23 (Acetaminophen Extra Strength) cyanocobalamin (vitamin B-12) 1,000 mcg PO DAILY 03/01/20 05/17/23 1,000 mcg tablet nystatin 100,000 unit/gram topical 1 applic topical BID #30 grams 03/05/20 05/17/23 cream amiodarone 200 mg tablet 200 mg PO DAILY 11/27/20 05/17/23 lisinopril 5 mg tablet 5 mg PO DAILY 11/27/20 05/17/23 metoprolol succinate 50 mg 50 mg PO DAILY 11/27/20 05/17/23 tablet,extended release 24 hr tamsulosin 0.4 mg capsule 0.4 mg PO DAILY 11/27/20 05/17/23 apixaban 2.5 mg tablet 2.5 mg PO BID 05/31/21 05/17/23 betamethasone dipropionate 0.05 % 1 applic topical BID PRN 05/31/21 05/17/23 topical cream insulin aspart U-100 100 unit/mL 9 unit subcut TID 05/31/21 05/17/23 subcutaneous solution (Novolog U-100 Insulin aspart) amlodipine 2.5 mg tablet 2.5 mg PO DAILY 07/11/22 05/17/23 furosemide 40 mg tablet 80 mg PO DAILY swelling 07/11/22 05/17/23 insulin detemir U-100 100 unit/mL 25 unit subcut DAILY 07/11/22 05/17/23 subcutaneous solution (Levemir U-100 Insulin) albuterol sulfate 90 mcg/actuation inhalation 05/17/23 aerosol inhaler prednisone 20 mg tablet 60 mg (3 x 20 mg) PO DAILY 5 days 08/17/23 #15 tabs Previous Rx's Medication Instructions Recorded nystatin 100,000 unit/gram topical 1 applic topical BID #30 grams 03/05/20 cream prednisone 20 mg tablet 60 mg (3 x 20 mg) PO DAILY 5 days 08/17/23 #15 tabs Allergies Allergy/AdvReac Type Severity Reaction Status Date / Time adhesive Allergy Severe significant Verified 05/17/23 03:28 skin reaction, swelling, erythema, discomfort neomycin Allergy Verified 05/17/23 03:28 General Stated Complaint: Orthopedic ASTON: 4 Review of Systems All systems reviewed & are unremarkable except as noted in HPI and below Constitutional Constitutional: Denies chills, Denies fever(s) and Denies weakness Cardiovascular Cardiovascular: Denies chest pain and Denies dyspnea Respiratory Respiratory: Denies cough and Denies dyspnea Gastrointestinal Gastrointestinal: Denies abdominal pain, Denies nausea and Denies vomiting Musculoskeletal Musculoskeletal: Denies joint swelling Neurologic Neurologic: Denies weakness Exam Const General: no acute distress Orientation: alert HENTN Head: normal to inspection Ears: external ears normal General nose exam: external nose normal Mouth: moist mucous membranes Eyes General: appearance normal, both eyes and all related structures Neck Neck: normal visual inspection Resp Effort & Inspection: normal respiratory effort and able to speak in complete sentences Cardio Rate: regular rate Skin General skin exam: no rashes or lesions noted Neuro General: patient alert and patient oriented x3 Extrem General: full ROM and capillary refill normal Psych Mental Status: mental status grossly normal Course Vital Signs Vital signs: Vital Signs Temperature 36.5 C 08/17/23 08:11 Pulse 60 08/17/23 08:11 Respiratory Rate 18 08/17/23 08:11 Blood Pressure 120/59 L 08/17/23 08:11 Pulse Oximetry 96 08/17/23 08:11 Temperature 36.5 C 08/17/23 08:11 Temperature Source Skin 08/17/23 08:11 Pulse 60 08/17/23 08:11 Respiratory Rate 18 08/17/23 08:11 Blood Pressure 120/59 L 08/17/23 08:11 Blood Pressure Position Sitting 08/17/23 08:11 Pulse Oximetry 96 08/17/23 08:11 Oxygen Delivery Method Room Air 08/17/23 08:11 Oxygen Flow Rate 0 08/17/23 08:11 Pain Level 4 08/17/23 08:11 Medical Decision Making 87-year-old male with a history of A-fib on Eliquis, coronary artery disease, diabetes, comes in with 3 days of left elbow swelling. He states he recently has been doing a lot of moving furniture and leaning on his elbow. Denies any trauma. No fevers or chills. He arrives ambulatory and appears well in no distress oriented x 4. He does have swelling of the left olecranon consistent with olecranon bursitis, there is no warmth or erythema to make septic bursitis likely. He has full range of motion of the elbow with no pain so do not feel any imaging is indicated. Given he is on Eliquis and cannot take NSAIDs will provide short course of prednisone, advised to keep it elevated is much as possible. He is stable for discharge, advised to follow-up with his primary care provider return precautions given Differential Diagnosis Differential Diagnosis: Bursitis, tendinitis, Quality:SDOH Health Related Social Needs: No Data to Display PFSH All Active Problems (Updated 08/17/23 @ 08:24 by Isac Burgos MD) Olecranon bursitis, left elbow (Acute) Medication management (Acute) amiodarone for afib EKG Q 12 Months RH HTN (hypertension) (Acute) CAD (coronary artery disease) (Chronic) Dermatitis (Acute) Atrial fibrillation (Chronic) Chest pain (Acute) Acute non-ST elevation myocardial infarction (NSTEMI) (Acute) Wound dehiscence, surgical (Acute) Type 2 diabetes mellitus (Chronic) Fatty liver (Acute) Chronic kidney disease, stage 3 (Chronic) Mass of salivary gland (Acute) Ischemic cardiomyopathy (Chronic) Skin lesion of scalp (Acute) Anemia (Chronic) Hearing impairment (Acute) Medical History HLD (hyperlipidemia) Former smoker Balanitis Atrial flutter Edema Assaria's disease Phimosis (10/17/15) Erectile dysfunction AAA (abdominal aortic aneurysm) Hypomagnesemia CHF (congestive heart failure) Renal insufficiency 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) Diverticulitis of large intestine with abscess Hypercholesterolemia Diabetes mellitus Myocardial infarct Phimosis Surgical History Status post colostomy takedown (~03/01/20) S/P left hemicolectomy (~07/19/18) H/O phimosis s/p repair History of heart artery stent S/P hernia repair History of endovascular stent graft for abdominal aortic aneurysm (AAA) Social History Smoking/Tobacco Use Status: Former Tobacco Use Quit Date: 01/03/17 Tobacco: How many years used: 60 Smoking risk assessment performed?: Yes Alcohol Intake: former Drug use: Never Substance use type: does not use Do you feel safe at home: Yes Do you feel safe in your relationship?: Yes
== END 2023-08-17 08:38 | disposition home or self-care (01) ==
PROVIDERS: Emergency Provider Emergency Medicine; PCP Family Medicine
DX: M70.22 Olecranon bursitis, left elbow (principal); I48.91 Unspecified atrial fibrillation; Z79.01 Long term (current) use of anticoagulants; I25.10 Atherosclerotic heart disease of native coronary artery without angina pectoris; Z79.4 Long term (current) use of insulin; Z79.899 Other long term (current) drug therapy; I25.2 Old myocardial infarction; E11.22 Type 2 diabetes mellitus with diabetic chronic kidney disease; I13.0 Hypertensive heart and chronic kidney disease with heart failure and stage 1 through stage 4 chronic kidney disease, or unspecified chronic kidney disease; N18.9 Chronic kidney disease, unspecified; I50.9 Heart failure, unspecified
CPT/HCPCS: 99283

== ENCOUNTER 2023-09-25 12:14 | Outpatient (REF) | payer MEDICARE, SELFPAY ==
[2023-09-25 15:55] LABS: Abs Immature Grans 0.08 10^3/uL (0.0-0.06); Absolute Basophil Count 0.05 10^3/uL (0.0-0.2); Absolute Lymphocyte Count 1.93 10^3/uL (1.2-3.4); Absolute Monocyte Count 1.13 10^3/uL (0.1-0.8); Absolute Neutrophil Count 8.07 10^3/uL (1.2-6.7); Basophils % 0.4 %; Eosinophils % 2.6 %; HCT 44.1 % (40.0-50.0); HGB 13.9 g/dL (13.5-17.5); Immature Grans % 0.7 %; Lymphocytes % 16.7 %; MCH 29.6 pg (27.0-33.0); MCHC 31.5 % (32.0-36.0); MCV 94 fL (80-95); MPV 10.5 fL (8.0-11.0); Monocytes % 9.8 %; Neutrophils % 69.8 %; Platelet Count 274 10^3/uL (130-400); RDW 12.4 % (11.8-14.1); WBC 11.56 10^3/uL (4.4-10.8)
[2023-09-25 16:38] LABS: COMMENT (LAB VIEW ONLY) 28.27 mg/dL; Microalb ug/mg Crea 26.5 ug/mg Cr
[2023-09-25 16:54] LABS: Anion Gap 9.9 mmol/L (3-11); BUN 45 mg/dL (7-18); CO2 26.1 mmol/L (21.0-32.0); Chloride 104 mmol/L (98-107); Estimated GFR 14.77 (mL/min/1.73m2); Glucose 118 mg/dL (74-106); Potassium 4.3 mmol/L (3.5-5.1); Sodium 140 mmol/L (136-145)
[2023-09-25 17:34] LABS: CREATININE 3.8 mg/dL (0.70-1.30)
== END 2023-09-25 12:15 | disposition home or self-care (01) ==
LOC: NCHCN 12:14
PROVIDERS: PCP Family Medicine; Visit Provider Student in an Organized Health Care Education/Training Program
DX: E11.9 Type 2 diabetes mellitus without complications (principal); N18.4 Chronic kidney disease, stage 4 (severe)
CPT/HCPCS: 80048; 82043; 82570; 85025

== ENCOUNTER 2023-10-05 23:59 | Inpatient (IN) | payer MEDICARE, SELFPAY ==
--- NOTE | 2023-10-05 23:45 | RT.EKG_ITS ---
APPROVED REPORT Exam: Resting ECG Reason for Exam: dizziness Patient Location: E HR:46 bpm ECG Measurements Heart Rate 46 AXIS CO 337 P -7 QRSd 115 QRS -3 QT 568 T 47 QTc 500 Conclusion Sinus bradycardia...rate< 60 Prolonged CO interval...CO >230, V-rate 30- 49 Nonspecific intraventricular conduction delay...QRSd >115mS, not LBBB/RBBB Low voltage, precordial leads...precordial leads <1.0mV I have reviewed and interpreted ECG and agree with software generated interpretation.
[2023-10-06] VITALS (41 sets, daily range): BP systolic 123–159; BP diastolic 46–76; PULSE 42–68; RESP 0–33; TEMP 34.9–36.9; O2SAT 84–99
--- NOTE | 2023-10-06 | DI.RAD_ITS ---
Exam(s) XR PORTABLE CHEST AP EXAM: XR PORTABLE CHEST AP CLINICAL HISTORY: near syncope TECHNIQUE: 2D digital imaging was performed of the chest. One image was obtained. An AP view was ob tained. COMPARISON: CR,XR XR PORTABLE CHEST AP from 11/16/2021 FINDINGS: MEDIASTINUM: Normal. HEART: The heart is at the upper limits of normal in size. PULMONARY VASCULATURE: Atherosclerotic calcification and tortuosity of the thoracic aorta is noted. LUNGS: Clear. PLEURAL SPACE: No pleural effusion or pneumothorax. BONE:Within normal limits for the patient's age. OTHER FINDINGS:Normal. IMPRESSION: No acute pulmonary findings. DATA REPOSITORY: RADIATION DOSE DELIVERED:
--- NOTE | 2023-10-06 00:15 | W.ED.GENAD ---
Discharge Plan Disposition Patient Disposition: Admit to [facility] Condition: Improving Discharge Details Chief Complaint: GenMedical Clinical Impression: Urinary tract infection, Sepsis Admit Date/Time: 10/06/23 02:53 Admit Provider: Wellington Chinchilla Attending Provider: Wellington Chinchilla Primary Care Provider: Rolando Moise ED Provider: Ryan Stafford HPI General Date/Time Provider Initiated Documentation: 10/06/23 00:00. HPI Narrative: 84-year-old male with a past medical history of a AAA, with endovascular stent graft, myocardial infarction with stent, diabetes CKD, CHF, ischemic cardiomyopathy, previous colectomy, high cholesterol, presents today for evaluation of sweating, chills and feeling weak and dizzy. Patient states that he had been at the [facility] all day today and had no problems or complications. He did not drink any alcohol. This evening he returned home, had been doing well, went to bed, but while in bed at around 11:30 PM while falling asleep he suddenly felt weak, dizzy, got very sweaty. EMS was called, and on their arrival he was sweaty, bradycardic, did not feel well. Initial blood pressure was slightly low, blood glucose was 84, fluids were started and he was brought in for further assessment. Blood pressure notably normalized within a few minutes, and patient's symptoms resolved. By the time the patient arrived in the ER he stated that he felt well and no longer had any complaints. He denies any chest pain, shortness of breath, headache, neck pain, cough, vomiting or diarrhea. He denies any abdominal or groin pain. No other complaints at this time. Related Data Home Medications Medication Instructions Recorded Confirmed ibuprofen 200 mg capsule 600 - 800 mg PO PRN PRN 09/05/15 10/06/23 atorvastatin 40 mg tablet (Lipitor) 40 mg PO QPM 09/20/17 10/06/23 fluocinolone 0.01 % topical cream 1 applic topical BID 01/14/20 10/06/23 magnesium oxide 400 mg PO BID 01/14/20 10/06/23 nitroglycerin 0.4 mg sublingual 0.4 mg sublingual Q5 MIN PRN X3 PRN 01/14/20 10/06/23 tablet (Nitrostat) acetaminophen 500 mg tablet 1,000 mg PO Q8H PRN 02/29/20 10/06/23 (Acetaminophen Extra Strength) cyanocobalamin (vitamin B-12) 1,000 mcg PO DAILY 03/01/20 10/06/23 1,000 mcg tablet amiodarone 200 mg tablet 200 mg PO DAILY 11/27/20 10/06/23 lisinopril 5 mg tablet 5 mg PO DAILY 11/27/20 10/06/23 metoprolol succinate 50 mg 50 mg PO DAILY 11/27/20 10/06/23 tablet,extended release 24 hr tamsulosin 0.4 mg capsule 0.4 mg PO DAILY 11/27/20 10/06/23 apixaban 2.5 mg tablet 2.5 mg PO BID 05/31/21 10/06/23 insulin aspart U-100 100 unit/mL 9 unit subcut TID 05/31/21 10/06/23 subcutaneous solution (Novolog U-100 Insulin aspart) amlodipine 2.5 mg tablet 2.5 mg PO DAILY 07/11/22 10/06/23 furosemide 40 mg tablet 80 mg PO DAILY swelling 07/11/22 10/06/23 insulin detemir U-100 100 unit/mL 25 unit subcut DAILY 07/11/22 10/06/23 subcutaneous solution (Levemir U-100 Insulin) albuterol sulfate 90 mcg/actuation 2 puff inhalation ONCE PRN 05/17/23 10/06/23 aerosol inhaler Allergies Allergy/AdvReac Type Severity Reaction Status Date / Time adhesive Allergy Severe significant Verified 10/06/23 00:23 skin reaction, swelling, erythema, discomfort neomycin Allergy Unknown Verified 10/06/23 00:23 General Stated Complaint: GenMedical ASTON: 2 Review of Systems All systems reviewed & are unremarkable except as noted in HPI and below Exam Narrative Exam Narrative: 1.Const: Well-nourished, Well-developed, appearing stated age 2.Eyes: PERRL, no conjunctival injection, and symmetrical lids. 3.ENT: Atraumatic external nose and ears. Moist MM. Neck: Symmetric, trachea midline, No thyromegaly. 4.CVS: +S1/S2, No murmurs or gallops. Peripheral pulses 2+ and equal in all extremities. Brisk capillary refill in all extremities. 5.RESP: Unlabored respiratory effort. Clear to auscultation bilaterally. No wheezes rales or rhonchi 6.GI: Soft, Nontender/Nondistended, No hepatosplenomegaly. No guarding or rebound. 7.MSK: Normocephalic/Atraumatic, Extremities w/o deformity or ttp No cyanosis or clubbing, Normal movement of all extremities, trace pitting edema 8.Skin: Warm, Dry. No rashes or lesions. 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 Sensation grossly intact, no focal neurologic deficits. All 6 cardinal planes of vision are fully intact. No evidence of rotatory or vertical nystagmus. The patient demonstrated a normal [id number], good dexterity. There was no evidence of dysdiadochokinesia. Patient was able to ambulate without difficulty. There was no wide-based gait. Romberg testing was normal. [id number]-uw-[id number] testing was normal. Sensation was intact bilaterally as well as muscle strength bilaterally for all extremities. Patient was able to verbalize butter cup with no slurring, or miss pronunciation. 10.Psych: (AAO) x3. Appropriate mood and affect Course Vital Signs Vital signs: Vital Signs Temperature 34.9 C L 10/06/23 00:00 Pulse 47 L 10/06/23 00:00 Respiratory Rate 15 10/06/23 00:00 Blood Pressure 132/56 L 10/06/23 00:00 Pulse Oximetry 99 10/06/23 00:00 Temperature 34.9 C L 10/06/23 00:00 Temperature Source Oral 10/06/23 00:00 Pulse 47 L 10/06/23 00:00 Respiratory Rate 15 10/06/23 00:00 Respiratory Effort Normal 10/06/23 00:10 Blood Pressure 132/56 L 10/06/23 00:00 Blood Pressure Position Sitting 10/06/23 00:00 Pulse Oximetry 99 10/06/23 00:00 Oxygen Delivery Method Room Air 10/06/23 00:00 Oxygen Flow Rate 0 10/06/23 00:00 Medical Decision Making 84-year-old male with a past medical history of a AAA, with endovascular stent graft, myocardial infarction with stent, diabetes CKD, CHF, ischemic cardiomyopathy, previous colectomy, high cholesterol, presents today for evaluation of sweating, chills and feeling weak and dizzy. Patient states that he had been at the [facility] all day today and had no problems or complications. He did not drink any alcohol. This evening he returned home, had been doing well, went to bed, but while in bed at around 11:30 PM while falling asleep he suddenly felt weak, dizzy, got very sweaty. EMS was called, and on their arrival he was sweaty, bradycardic, did not feel well. Initial blood pressure was slightly low, blood glucose was 84, fluids were started and he was brought in for further assessment. Blood pressure notably normalized within a few minutes, and patient's symptoms resolved. By the time the patient arrived in the ER he stated that he felt well and no longer had any complaints. He denies any chest pain, shortness of breath, headache, neck pain, cough, vomiting or diarrhea. He denies any abdominal or groin pain. No other complaints at this time. Exam demonstrates well-appearing male, no focal neurologic deficits, clear lungs, nontender abdomen. No nuchal rigidity. Normal neurologic assessment. Patient's temperature is actually somewhat hypothermic, blood pressure normal, patient is bradycardic, sinus bradycardia noted on EKG. Patient does take metoprolol. Differential at this time includes cardiac dysrhythmia, NSTEMI, electrolyte abnormality, with the patient's mild hypothermia differential certainly does include infectious etiology including pneumonia or UTI. Patient denies any recent tick bites, however Lyme is certainly on the differential. EMS started a 500 cc bolus which is almost complete at this time. Will evaluate for concerning etiologies, monitor closely and reassess. 1:10 AM Laboratory workup shows mild white count of 13.8, mild left shift, no bandemia. Creatinine has a notable jump 4.2 whereas normally he is in the mid to high threes. Troponin normal, TSH elevated but free T4 normal, urinalysis demonstrates notable leukocyte esterase and greater than 50 WBCs. Concern for pyelonephritis and will give 2 g of ceftriaxone. Additionally with worsening renal function, this may be secondary to dehydration versus obstructing stone. Will get a CT scan to evaluate for acute abdominal process. Will monitor closely and reassess. Patient may benefit from admission due to his age and risk factors [address] scan demonstrates no evidence of acute process, mild circumferential urinary bladder wall thickening, but no evidence of obstructive uropathy. Patient's vitals remained stable, however he does have chills and rigors. Due to the patient's age and risk factors I do feel that he would be appropriate for admission or at the very least 24-hour observation. Antibiotics have been given, discussed the case with the hospitalist he agrees with the assessment and plan. I have extensively reviewed the treatment plan with the patient. I have addressed all patient concerns at this time. I have also discussed the plan with the admitting physician and they agree with the current assessment and plan and have agreed to assume responsibility for the patient. All parties demonstrate verbal understanding and agreement with our assessment and plan at this time. The documentation in this chart was dictated using [employer] dictation software. Please excuse any dictation errors. FINDINGS: Heart: Cardiomegaly. Liver: Liver is decreased in volume with some surface irregularity, suspicious for cirrhosis. Gallbladder and bile ducts: Normal. No calcified stones. No ductal dilation. Pancreas: Unremarkable. Spleen: Normal. Adrenal glands: Normal. No mass. Kidneys and ureters: Chronic medical renal disease. Left renal cyst. No obstructive uropathy. Nonobstructing small left renal calcification. Stomach and bowel: Chronic postsurgical changes of the bowel. Colonic diverticulosis. No diverticulitis. No bowel wall thickening or intestinal obstruction. No pneumatosis or portal/mesenteric venous gas. Appendix: Appendix not visualized. No evidence of appendicitis. Intraperitoneal space: No pneumoperitoneum or abscess. Vasculature: Stable 8.8 cm abdominal aortic aneurysm status post stable appearing stent graft repair. Noncontrast study. Lymph nodes: Unremarkable. Urinary bladder: Mild circumferential urinary bladder wall thickening without pericystic inflammation is equivocal for cystitis. Reproductive: Prostatomegaly. Bones/joints: Unremarkable. No acute fracture. Soft tissues: Left inguinal hernia containing fat only. IMPRESSION: 1. Liver is decreased in volume with some surface irregularity, suspicious for cirrhosis. 2. Stable 8.8 cm abdominal aortic aneurysm status post stable appearing stent graft repair. Noncontrast study. 3. Mild circumferential urinary bladder wall thickening without pericystic inflammation is equivocal for cystitis. Thank you for allowing us to participate in the care of your patient. Dictated and Authenticated by: Randy Araujo MD 10/06/2023 2:23 AM Eastern Time ([place] & [place]) Quality:SDOH Health Related Social Needs: No Data to Display PFSH All Active Problems (Updated 10/06/23 @ 05:05 by Ryan Stafford DO) Sepsis (Acute) Urinary tract infection (Acute) Medication management (Acute) amiodarone for afib EKG Q 12 Months RH HTN (hypertension) (Acute) CAD (coronary artery disease) (Chronic) Dermatitis (Acute) Atrial fibrillation (Chronic) Chest pain (Acute) Acute non-ST elevation myocardial infarction (NSTEMI) (Acute) Wound dehiscence, surgical (Acute) Type 2 diabetes mellitus (Chronic) Fatty liver (Acute) Chronic kidney disease, stage 3 (Chronic) Mass of salivary gland (Acute) Ischemic cardiomyopathy (Chronic) Skin lesion of scalp (Acute) Anemia (Chronic) Hearing impairment (Acute) Medical History HLD (hyperlipidemia) Former smoker Balanitis Atrial flutter Edema Cruz's disease Phimosis (10/17/15) Erectile dysfunction AAA (abdominal aortic aneurysm) Hypomagnesemia CHF (congestive heart failure) Renal insufficiency 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) Diverticulitis of large intestine with abscess Hypercholesterolemia Diabetes mellitus Myocardial infarct Phimosis Surgical History Status post colostomy takedown (~03/01/20) S/P left hemicolectomy (~07/19/18) H/O phimosis s/p repair History of heart artery stent S/P hernia repair History of endovascular stent graft for abdominal aortic aneurysm (AAA) Social History Smoking/Tobacco Use Status: Former Tobacco Use Quit Date: 01/03/17 Tobacco: How many years used: 60 Smoking risk assessment performed?: Yes Alcohol Intake: former Drug use: Never Substance use type: does not use Housing: house Do you feel safe at home: Yes Do you feel safe in your relationship?: Yes
[2023-10-06 00:19] LABS: Abs Immature Grans 0.07 10^3/uL (0.0-0.06); Absolute Basophil Count 0.06 10^3/uL (0.0-0.2); Absolute Eosinophil Count 0.29 10^3/uL (0.0-0.7); Absolute Lymphocyte Count 1.57 10^3/uL (1.2-3.4); Absolute Neutrophil Count 10.21 10^3/uL (1.2-6.7); Basophils % 0.4 %; Eosinophils % 2.1 %; HGB 12.8 g/dL (13.5-17.5); Immature Grans % 0.5 %; Lymphocytes % 11.4 %; MCH 30.1 pg (27.0-33.0); MCV 94 fL (80-95); MPV 10.3 fL (8.0-11.0); Monocytes % 11.6 %; Platelet Count 221 10^3/uL (130-400); RBC 4.25 10^6/uL (4.36-5.78); RDW 13.1 % (11.8-14.1); RDW-SD 45.1 fL
[2023-10-06 00:29] LABS: Diff Comment Diff Reviewed; RBC Morphology Normal
[2023-10-06 00:46] LABS: ALT 24 U/L (16-63); AST 23 U/L (15-37); Albumin 3.1 g/dL (3.4-5.0); Alkaline Phosphatase 111 U/L (46-116); Anion Gap 9.2 mmol/L (3-11); BUN 44 mg/dL (7-18); Bilirubin, Total 0.5 mg/dL (0.2-1.0); CO2 26.8 mmol/L (21.0-32.0); Calcium 8.7 mg/dL (8.5-10.1); Chloride 107 mmol/L (98-107); Glucose 72 mg/dL (74-106); NT-proBNP 241 pg/mL (<300); Potassium 3.8 mmol/L (3.5-5.1); Sodium 143 mmol/L (136-145); TSH (W/Ref FT4) 4.98 uIU/mL (0.36-3.74); Total Protein 6.6 g/dL (6.4-8.2); Troponin I < 50 ng/L (< or =60)
[2023-10-06 00:49] LABS: CREATININE 4.2 mg/dL (0.70-1.30)
[2023-10-06 00:53] LABS: Bilirubin Negative (Negative); Blood Large (Negative); Clarity Sl Cloudy (Clear); Glucose Negative (Negative); Ketones Negative (Negative); Leukocyte Esterase Moderate (Negative); Nitrite Negative (Negative); Urobilinogen 0.2 mg/dL (Up to 0.2); pH 5.5 (5-8)
[2023-10-06 01:03] LABS: COVID-19 PCR Negative (Negative); Influenza A PCR Negative (Negative); Influenza B PCR Negative (Negative); RSV PCR Negative (Negative)
[2023-10-06 01:05] LABS: FREE T4 1.39 ng/dL (0.76-1.46)
--- NOTE | 2023-10-06 01:05 | DI.VRAD_ITS ---
PROCEDURE INFORMATION: Exam: XR Chest Exam date and time: 10/06/2023 12:35 AM Age: 87 years old Clinical indication: Other: Near syncope TECHNIQUE: Imaging protocol: Radiologic exam of the chest. Views: 1 view. COMPARISON: CT CHEST/ABD/PEL WO 05/17/2023 4:28 AM FINDINGS: Lungs: Apical lordotic projection. Lungs are clear. Pleural spaces: Unremarkable. No pleural effusion. No pneumothorax. Heart/Mediastinum: Unremarkable. No cardiomegaly. Diaphragm: Mild elevation of the left hemidiaphragm. Bones/joints: Unremarkable. IMPRESSION: No acute findings. Dictated and Authenticated by: Randy Araujo MD. Ordering:ROSALIE Davis MD
[2023-10-06 01:09] LABS: Source Nasopharynx
[2023-10-06 01:12] LABS: WBC >50 HPF (0-5)
[2023-10-06 01:13] LABS: C & S Indicated? Yes
--- NOTE | 2023-10-06 01:15 | DI.CT_ITS ---
Exam(s) CT ABDOMEN PELVIS WO EXAM: CT ABDOMEN PELVIS WO CLINICAL HISTORY: notable UTI, YEYO, r/o obstructing stone. TECHNIQUE: Imaging Protocol: Axial computed tomography images with coronal and sagittal reformatted images were created and reviewed. COMPARISON: CT CT CHEST/ABD/PEL WO from 11/07/[address] CHEST/ABD/PEL WO from 05/17/2023 FINDINGS: ABDOMEN: Lung Bases: Mitral calcification is present. Pulmonary fibrotic changes are seen in the lung bases. Liver: Normal density. No measurable mass. Gallbladder and biliary tract: No radiodense calculus or biliary ductal dilation. Pancreas: Normal density, no abnormal calcifications or inflammatory process. Spleen: Normal. Kidneys: There is stable bilateral renal cortical atrophy.Calcification is seen in the left kidney wh ich appears stable. No evidence of ureterolithiasis or hydronephrosis. There is a stable left renal cyst. Adrenal glands: No mass is seen. Lymph nodes: Within normal limits. Abdominal Aorta: There is an infrarenal abdominal aortic aneurysm. It measures 8.5 cm. There is a e ndovascular aortoiliac stent in place. Atherosclerotic calcification is present. PELVIS: Bladder:There is diffuse thickening of the wall of the urinary bladder. No Syeda cystic inflammation is seen. Bowel: Postsurgical changes are seen in the sigmoid colon. There is diverticulosis of the sigmoid co italo but no evidence of acute diverticulitis. There is no evidence of bowel obstruction or bowel wall thickening. No evidence of appendicitis. Peritoneal cavity: No ascites, collection or mesenteric inflammatory response. No free air. Reproductive organs: There is an enlarged prostate gland. Bones: Within normal limits. There is ankylosis of the sacroiliac joints. Soft Tissues: Within normal limits. IMPRESSION: 1. Mild diffuse thickening of the wall of the urinary bladder. This may be due to underdistention or chronic bladder outlet obstruction. Cystitis cannot be entirely excluded. Please correlate clinica lly. 2. No other evidence of an acute abdominal pelvic process. 3. No evidence of obstructive uropathy. RADIATION DOSE DELIVERED: 1,041.47mGy.cm Total DLP DATA REPOSITORY: All CT scans at this facility are submitted to the National Radiology Data Registry (NRDR) Dose Index Registry (DIR) with the [employer] (ACR). RADIATION OPTIMIZATION: All CT scans at this facility use at least one of these dose optimization te chniques: automated exposure control; mA and/or kV adjustment per patient size (includes targeted exa ms where dose is matched to clinical indication); or iterative reconstruction.
[2023-10-06] MEDS: cefTRIAXone 2 GM/50 ML BAG IVPB ×2 (01:20→23:23)
[2023-10-06] MEDS: ACETAMINOPHEN 1,000 MG/100 ML BTL 400 MG IVPB (02:18)
--- NOTE | 2023-10-06 02:24 | DI.VRAD_ITS ---
PROCEDURE INFORMATION: Exam: CT Abdomen And Pelvis Without Contrast Exam date and time: 10/06/2023 1:55 AM Age: 87 years old Clinical indication: Prior surgery; Surgery date: 6+ months; Surgery type: Stent/graft for aaa, hernia repair; Patient HX: Notable UTI, promise, R/O obstructing stone TECHNIQUE: Imaging protocol: Computed tomography of the abdomen and pelvis without contrast. Radiation optimization: All CT scans at this facility use at least one of these dose optimization techniques: automated exposure control; mA and/or kV adjustment per patient size (includes targeted exams where dose is matched to clinical indication); or iterative reconstruction. COMPARISON: CT CHEST/ABD/PEL WO 05/17/2023 4:28 AM FINDINGS: Heart: Cardiomegaly. Liver: Liver is decreased in volume with some surface irregularity, suspicious for cirrhosis. Gallbladder and bile ducts: Normal. No calcified stones. No ductal dilation. Pancreas: Unremarkable. Spleen: Normal. Adrenal glands: Normal. No mass. Kidneys and ureters: Chronic medical renal disease. Left renal cyst. No obstructive uropathy. Nonobstructing small left renal calcification. Stomach and bowel: Chronic postsurgical changes of the bowel. Colonic diverticulosis. No diverticulitis. No bowel wall thickening or intestinal obstruction. No pneumatosis or portal/mesenteric venous gas. Appendix: Appendix not visualized. No evidence of appendicitis. Intraperitoneal space: No pneumoperitoneum or abscess. Vasculature: Stable 8.8 cm abdominal aortic aneurysm status post stable appearing stent graft repair. Noncontrast study. Lymph nodes: Unremarkable. Urinary bladder: Mild circumferential urinary bladder wall thickening without pericystic inflammation is equivocal for cystitis. Reproductive: Prostatomegaly. Bones/joints: Unremarkable. No acute fracture. Soft tissues: Left inguinal hernia containing fat only. IMPRESSION: 1. Liver is decreased in volume with some surface irregularity, suspicious for cirrhosis. 2. Stable 8.8 cm abdominal aortic aneurysm status post stable appearing stent graft repair. Noncontrast study. 3. Mild circumferential urinary bladder wall thickening without pericystic inflammation is equivocal for cystitis. Dictated and Authenticated by: Randy Araujo MD. Ordering:ROSALIE Davis MD
--- NOTE | 2023-10-06 03:15 | HPE_ITS ---
Date of service: 10/06/23 Time of Service: 03:15 Assessment and Plan Assessment and plan (1) Sepsis: Status: Acute Assessment and plan: secondary to urinary source, likely due to dehydration and BPH causing urinary retention, brooke has not been placed, patient is able to void on his own. Will continue Rocephin 2 gm iV Q24H and monitor urinary output and ask nursing to scan for PVR and report volumes over 350 as patient may need catheterization. No obstruction seen on CT and no stones. Qualifiers: Acute renal failure type: unspecified Sepsis acute organ dysfunction status: with acute organ dysfunction Sepsis type: sepsis due to unspecified organism Severe sepsis acute organ dysfunction type: acute renal failure S evere sepsis shock status: without septic shock Qualified Code(s): A41.9 - Sepsis, unspecified organism; R65.20 - Severe sepsis without septic shock; N17.9 - Acute kidney failure, unspecified (2) Urinary tract infection: Status: Acute Assessment and plan: as above. Patient is eager to be discharged soon. I explained to him and his that we need to be sure that his blood cultures are negative before we can plan on discharge so we know what oral antibiotic to put him on. He is ok w/ staying for now. Qualifiers: Hematuria presence: without hematuria Urinary tract infection type: a cute cystitis Qualified Code(s): N30.00 - Acute cystitis without hematuria (3) HTN (hypertension): Status: Acute Assessment and plan: holding amlodipine and lisinopril until trend in BP can be established since per EMS he was hypotensive. If BP remains stable then can reinstitute some of his meds gradually. I have held Toprol d/t significant bradycardia; will monitor on telemetry, may be able to reinitiate metoprolol at lower dose Qualifiers: Hypertension type: primary hypertension Qualified Code(s): I10 - Essential (primary) hypertension (4) Atrial fibrillation: Status: Chronic Assessment and plan: currently in sinus bradycardia, continue amiodarone but hold Toprol XL due to bradycardia, continue Eliquis Qualifiers: Atrial fibrillation type: paroxysmal Qualified Code(s): I48.0 - Paroxysmal atrial fibrillation (5) Type 2 diabetes mellitus: Status: Chronic Assessment and plan: continue home dose of basal/bolus insulin and add sliding scale coverage, monitor AC/HS Qualifiers: Chronic kidney disease stage: stage 4 (severe) Diabetes mellitus complication detail: with chronic kidney disease Diabetes mellitus [facility] insulin use: with terminal operator use (6) Ischemic cardiomyopathy: Status: Chronic Assessment and plan: negative troponin, no CP, not in acute CHF; will give iv fluids judicious monitor urine output. I gave him additional 500 mL bolus (had total of 1000 mL in bolus). Holding lasix for now until establish that he has been volume repleted. I have decided to stop any maintenance fluids as he now seems to have been repleted, no nausea or vomiting and no ongoing issues such as diarrhea therefore I think just simpley holding his lasix for a day and allow him to equilbrate by drinking freely. (7) Chronic kidney disease, stage 4 (severe): Status: Acute Assessment and plan: his baseline creatinine clearance appears to be around 15 mL/min/1.73, will monitor urine output and daily BMP (8) Discharge planning issues: Status: Acute Assessment and plan: I discussed advance directive with the patient and his . The patient does not want to be resuscitated in the event of CP arrest. His is supportive of his decision. I have changed his code status to DNR/DNI in accordance w/ his wishes. History of Present Illness History of Present Illness Chief Complaint: sweaty, hot, chilled, dizzy, weak Narrative: 87 yr old male w/ PMH of HFPEF, AAA s/p EVAR, CAD, OK w/ PCI, DM II on insulin, ruptured diverticulitis s/p hemicolectomy, BPH who had been feeling fine earlier yesterday but went to bed around 11:30 pm when he developed acute diaphoresis, chills, weakness and dizziness. EMS reports that he was bradycardic and hypotensive (patient is on amiodarone and toprol for afib and lisinopril and amlodipine for BP. Initial glucose per EMS was 84. He was given some iv fluids and felt better on arrival to the ED. Vitals on arrival were hypothermic at 34.9, bradycardia at 47, RR non-labored at 15 and BP 132/56 and SPO2 99% on room air. Workup in the ED suggested YEYO in setting of CKD w/ increase of his creatinine to 4.2 from baseline around 3.0, and evidence for UTI w/ UA moderate leukocyte esterase, so many WBC that obscure microscopic exam; SG >1.020, WBC 13,800, glucose 72, LFT normal, troponin I <50 x two sets, BNP 241. Imaging included CXR no acute findings. CT abdomen and pelvis: liver w/ irregular surface and decreased volume suggestive of cirrhosis. normal GB and bile ducts, normal spleen, kidneys: atrophic but no obstructive uropathy, non-obstructive small left renal calcifications, post surgical changes of bowel, diverticulosis w/out diverticulitis. Stable 8 cm AAA s/p EVAR, circumferential urinary bladder wall thickening. Blood and urine culutres were obtained and patient was begun on Ceftriaxone 2 gm and given 500 mL bolus of saline in the E.D. The hospitalist service was asked to admit this patient for treatment of UTI w/ sepsis. PFSH All Active Problems (Updated 10/06/23 @ 08:17 by Wellington Chinchilla MD) Discharge planning issues (Acute) Chronic kidney disease, stage 4 (severe) (Acute) Sepsis (Acute) Urinary tract infection (Acute) Medication management (Acute) amiodarone for afib EKG Q 12 Months RH HTN (hypertension) (Acute) CAD (coronary artery disease) (Chronic) Dermatitis (Acute) Atrial fibrillation (Chronic) Chest pain (Acute) Acute non-ST elevation myocardial infarction (NSTEMI) (Acute) Wound dehiscence, surgical (Acute) Type 2 diabetes mellitus (Chronic) Fatty liver (Acute) Chronic kidney disease, stage 3 (Chronic) Mass of salivary gland (Acute) Ischemic cardiomyopathy (Chronic) Skin lesion of scalp (Acute) Anemia (Chronic) Hearing impairment (Acute) Medical History HLD (hyperlipidemia) Former smoker Balanitis Atrial flutter Edema Cruz's disease Phimosis (10/17/15) Erectile dysfunction AAA (abdominal aortic aneurysm) Hypomagnesemia CHF (congestive heart failure) Renal insufficiency 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) Diverticulitis of large intestine with abscess Hypercholesterolemia Diabetes mellitus Myocardial infarct Phimosis Surgical History Status post colostomy takedown (~03/01/20) S/P left hemicolectomy (~07/19/18) H/O phimosis s/p repair History of heart artery stent S/P hernia repair History of endovascular stent graft for abdominal aortic aneurysm (AAA) Social History Smoking/Tobacco Use Status: Former Tobacco Use Quit Date: 01/03/17 Tobacco: How many years used: 60 Smoking risk assessment performed?: Yes Alcohol Intake: former Drug use: Never Substance use type: does not use Housing: house Do you feel safe at home: Yes Do you feel safe in your relationship?: Yes Meds Allergies and Home Medications Allergies Allergy/AdvReac Type Severity Reaction Status Date / Time adhesive Allergy Severe significant Verified 10/06/23 00:23 skin reaction, swelling, erythema, discomfort neomycin Allergy Unknown Verified 10/06/23 00:23 Home Medications Medication Instructions Recorded Confirmed Type ibuprofen 200 mg capsule 600 - 800 mg PO PRN PRN 09/05/15 10/06/23 History atorvastatin 40 mg tablet (Lipitor) 40 mg PO QPM 09/20/17 10/06/23 History fluocinolone 0.01 % topical cream 1 applic topical BID 01/14/20 10/06/23 History magnesium oxide 400 mg PO BID 01/14/20 10/06/23 History nitroglycerin 0.4 mg sublingual 0.4 mg sublingual Q5 MIN PRN X3 PRN 01/14/20 10/06/23 History tablet (Nitrostat) acetaminophen 500 mg tablet 1,000 mg PO Q8H PRN 02/29/20 10/06/23 History (Acetaminophen Extra Strength) cyanocobalamin (vitamin B-12) 1,000 mcg PO DAILY 03/01/20 10/06/23 History 1,000 mcg tablet amiodarone 200 mg tablet 200 mg PO DAILY 11/27/20 10/06/23 History lisinopril 5 mg tablet 5 mg PO DAILY 11/27/20 10/06/23 History metoprolol succinate 50 mg 50 mg PO DAILY 11/27/20 10/06/23 History tablet,extended release 24 hr tamsulosin 0.4 mg capsule 0.4 mg PO DAILY 11/27/20 10/06/23 History apixaban 2.5 mg tablet 2.5 mg PO BID 05/31/21 10/06/23 History insulin aspart U-100 100 unit/mL 9 unit subcut TID 05/31/21 10/06/23 History subcutaneous solution (Novolog U-100 Insulin aspart) amlodipine 2.5 mg tablet 2.5 mg PO DAILY 07/11/22 10/06/23 History furosemide 40 mg tablet 80 mg PO DAILY swelling 07/11/22 10/06/23 History insulin detemir U-100 100 unit/mL 25 unit subcut DAILY 07/11/22 10/06/23 History subcutaneous solution (Levemir U-100 Insulin) albuterol sulfate 90 mcg/actuation 2 puff inhalation ONCE PRN 05/17/23 10/06/23 History aerosol inhaler Exam Narrative Exam Narrative: Elderly white male who is hard of hearing but is alert and oriented sitting up in his chair preparing to eat breakfast. is in the room visiting with him. He appears to be in no acute distress HEENT is unremarkable Neck supple with no JVD normal carotid pulses Lungs are clear anteriorly posteriorly has some fine bibasilar rales no rhonchi or wheezing Heart is regular rate about 60 soft systolic murmur over the apex no thrill or gallop Abdomen obese soft and nontender normal bowel sounds Lower extremities 2+ pitting edema of his feet ankles and lower tibia Results Labs 10/06/23 00:04 10/06/23 00:04 Labs: Laboratory Results - last 24 hr 10/06/23 10/06/23 10/06/23 00:04 00:25 00:44 WBC 13.80 H RBC 4.25 L Hgb 12.8 L Hct 40.0 MCV 94 MCH 30.1 MCHC 32.0 RDW 13.1 Plt Count 221 MPV 10.3 Immature Gran % 0.5 Neutrophils % 74.0 Lymphocytes % 11.4 Monocytes % 11.6 Eosinophils % 2.1 Basophils % 0.4 Nucleated RBC % 0.0 Absolute Neutrophils 10.21 H Absolute Lymphocytes 1.57 Absolute Monocytes 1.60 H Absolute Eosinophils 0.29 Absolute Basophils 0.06 RBC Morphology Normal Sodium 143 Potassium 3.8 Chloride 107 Carbon Dioxide 26.8 Anion Gap 9.2 BUN 44 H Creatinine 4.2 H* Est GFR (CKD-EPI 2020) 13.10 Glucose 72 L Calcium 8.7 Total Bilirubin 0.5 AST 23 ALT 24 Alkaline Phosphatase 111 Troponin I < 50 NT-Pro-B Natriuret Pep 241 Total Protein 6.6 Albumin 3.1 L TSH 4.98 H Free T4 1.39 Urine Color Yellow Urine Clarity Sl Cloudy Urine pH 5.5 Ur Specific [place] 1.020 Urine Protein Trace Urine Ketones Negative Urine Blood Large H Urine Nitrite Negative Urine Bilirubin Negative Urine Urobilinogen 0.2 Ur Leukocyte Esterase Moderate H Urine RBC Not Applicable Urine WBC >50 H Ur Epithelial Cells Not Applicable Urine Crystals Not Applicable Urine Bacteria Not Applicable Urine Mucus Not Applicable Ur Culture Indicated? Yes Urine Glucose Negative COVID-19 Source Nasopharynx SARS-CoV-2 (PCR) Negative Influenza Type A (PCR) Negative Influenza Type B (PCR) Negative RSV (PCR) Negative Last Vital Signs Temp 35.6 C L 10/06/23 03:01 Pulse 47 L 10/06/23 03:01 Resp 16 10/06/23 03:01 BP 138/59 L 10/06/23 03:01 Pulse Ox 91 L 10/06/23 03:01 Time Spent Time spent with Patient: 55-74 minutes Time was spent: preparing to see the patient(eg.review tests), obtaining and/or reviewing separately otained hiistory, ordering medications,tests, procedures, referring, communicating with other health animal care taker (discussion w/ Dr. Stafford, ED provider and sign out to Dr. Martinez, day hospitalist), indepentently interpreting results, counseling the patient (and patient's ) and care coordination
[2023-10-06 03:23] LABS: Lactate 1.4 mmol/L (0.6-1.4)
[2023-10-06 03:42] LABS: Troponin I < 50 ng/L (< or =60)
[2023-10-06] MEDS: Lactated Ringers 500 ML IV (03:54)
[2023-10-06] MEDS: Lactated Ringers 1,000 ML 100 ML IV (05:23)
[2023-10-06] MEDS: Amiodarone 200 MG TAB PO (08:36)
[2023-10-06] MEDS: Cyanocobalamin 500 MCG TAB 1000 MCG PO (08:36)
[2023-10-06] MEDS: Tamsulosin 0.4 MG CAPCR PO (08:36)
[2023-10-06] MEDS: Apixaban 2.5 MG TAB PO ×2 (08:36→19:35)
[2023-10-06] MEDS: Insulin Aspart 300 UNITS/3 ML PEN 9 UNITS SC ×3 (08:37→17:22)
[2023-10-06] MEDS: Acetaminophen 500 MG TAB 1000 MG PO ×2 (08:41→19:37)
--- NOTE | 2023-10-06 08:57 | PT.INIE ---
PT Notes Visit Reasons: UTI, SIRS Physical Therapy Inpatient Initial Evaluation Date: 10/06/2023 Wellington Acosta MD Referring Doctor: Wellington Acosta MD PT Orders: PT CONSULT: Fall safety assessment Precautions: Fall. Standard. Activity as tolerated. Patient Profile/Admitting Diagnosis: Cesar is an 87-year-old male who presented to the ED on 10/06/2023 with a chief complaint of sweating, chills, feeling weak and dizzy. Patient is admitted for management of sepsis, UTI, HTN, AF, type 2 diabetes mellitus, ischemic cardiomyopathy, and stage IV kidney disease. PMHX: All Active Problems (Updated 10/06/23 @ 08:17 by Wellington Chinchilla MD) Discharge planning issues (Acute) Chronic kidney disease, stage 4 (severe) (Acute) Sepsis (Acute) Urinary tract infection (Acute) Medication management (Acute) amiodarone for afib EKG Q 12 Months RH HTN (hypertension) (Acute) CAD (coronary artery disease) (Chronic) Dermatitis (Acute) Atrial fibrillation (Chronic) Chest pain (Acute) Acute non-ST elevation myocardial infarction (NSTEMI) (Acute) Wound dehiscence, surgical (Acute) Type 2 diabetes mellitus (Chronic) Fatty liver (Acute) Chronic kidney disease, stage 3 (Chronic) Mass of salivary gland (Acute) Ischemic cardiomyopathy (Chronic) Skin lesion of scalp (Acute) Anemia (Chronic) Hearing impairment (Acute) Medical History HLD (hyperlipidemia) Former smoker Balanitis Atrial flutter Edema Randolph's disease Phimosis (10/17/15) Erectile dysfunction AAA (abdominal aortic aneurysm) Hypomagnesemia CHF (congestive heart failure) Renal insufficiency 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) Diverticulitis of large intestine with abscess Hypercholesterolemia Diabetes mellitus Myocardial infarct Phimosis Surgical History Status post colostomy takedown (~03/01/20) S/P left hemicolectomy (~07/19/18) H/O phimosis s/p repairHistory of heart artery stent S/P hernia repair History of endovascular stent graft for abdominal aortic aneurysm (AAA) Social History/Home Situation: Lives with SO in a private home with 3 steps to enter with rails on B sides. Independent with all mobility ADL performance without an assistive device. Equipment Owned/DME: JASSI, Subjective: I do not need any device. I hope I could go home soon, I have a friend bautista lives with me and helps me with anything at home Objective: General Observation: Sitting on bedside recliner. Bursitis on left elbow. Mental Status: Alert and oriented as to person, place, time, and purpose. Able to pay attention, focus, and respond appropriately. Pain: None reported Vital Signs: Closely monioterd by nursing staff ROM: Right Upper Extremity: Shoulder Flexion WFL. Shoulder abduction WFL. Elbow flexion WFL. Wrist flexion WFL. Functional opening and closing of hand WFL. Left Upper Extremity: Shoulder Flexion WFL. Shoulder abduction WFL. Elbow flexion WFL. Wrist flexion WFL. Functional opening and closing of hand WFL. Right Lower Extremity: Hip flexion WFL. Hip abduction WFL. Knee flexion WFL. Ankle dorsiflexion WFL. Ankle plantarflexion WFL. Left Lower Extremity: Hip flexion WFL. Hip abduction WFL. Knee flexion WFL. Ankle dorsiflexion WFL. Ankle plantarflexion WFL. Strength: Right Upper Extremity: Shoulder flexors 4/5. Shoulder abductors 4/5. Elbow flexors 5/5. Elbow extensors 5/5. Nutrient Management Specialist strong. Left Upper Extremity: Shoulder flexors 4/5. Shoulder abductors 4/5. Elbow flexors 5/5. Elbow extensors 5/5. Nutrient Management Specialist strong. Right Lower Extremity: Hip flexors 4/5. Hip abductors 4/5. Knee flexors 5/5. Knee extensors 4/5. Ankle dorsiflexors 4/5. Ankle plantarflexors 4/5. Left Lower Extremity: Hip flexors 4/5. Hip abductors 4/5. Knee flexors 5/5. Knee extensors 4/5. Ankle dorsiflexors 4/5. Ankle plantarflexors 4/5. Bed Mobility/Transfers: Rolling independent Supine to sit independent Sit to supine independent Sit to stand independent Stand to sit independent Bed to reclining chair independent Reclining chair to bed independent Gait: Facilitated safe performance of level surface ambulation covering a distance of 250 feet with step through gait pattern requiring no assistive device with just supervision by PT for directions. No LOB. No path deviation. Balance: Static Sitting: Normal Dynamic Sitting: Normal Static Standing: Normal Dynamic Standing: Good Special Tests: Mobility Limitations Standardized Measure [facility]-PAC 6 clicks Basic Mobility Inpatient Short Form: Raw Score: 24 CMS Score: 0% deficit 4-Stage balance Test: Feet together 10 seconds Semi-tandem 10 seconds Full tandem <10 seconds Full tandem <10 seonds Informed Consent/Education: Patient was instructed in purpose of PT consult. Assessment: Patient tolerated level surface ambulation of 250 feet without an assistive device with no LOB nor path deviation. Minimal shortness of breath resolved with rest. No skilled services needed at this time. Patient indicates that he feels at baseline mobility level and does not feel that he needs physical therapy services. Has had no falls in the past year. Patient is assessed as a 69776 low complexity based on the following: History: 87-year-old male with past medical history as indicated above Examination: Demonstrable impairment in strength, balance, and mobility level with underlying impairments and functional limitations as exhibited above as well as deficit score of 0% utilizing the [facility] Mobility Inpatient Short Form Presentation: Stable Decision Makin low complexity Goals: N/A. PT evlaluation only. No services neeed at this time. Plan of Care/Treatment Plan: N/A. PT evlaluation only. No services neeed at this time. DISCHARGE RECOMMENDATIONS: [X] Home with no services. Home when medically cleared by hospitalist. No equipment needs at this time. [] Home with services [specify] [] Home with outpatient PT [] [] SNF for continued rehabilitation [] [] Longterm Care [] [] SNF versus LTC based on ability to participate and progress [] TREATMENT CODE/TIME: 9716 1 x 25 minutes for 1 unit (8:57?9:22). Thank you for the opportunity to participate in the care of this patient. Jia Gann PT, DPT, CLT [facility] [place], [place]
[2023-10-06 08:59] LABS: Abs Immature Grans 0.06 10^3/uL (0.0-0.06); Absolute Basophil Count 0.07 10^3/uL (0.0-0.2); Absolute Eosinophil Count 0.24 10^3/uL (0.0-0.7); Absolute Lymphocyte Count 1.85 10^3/uL (1.2-3.4); Basophils % 0.6 %; HCT 41.2 % (40.0-50.0); HGB 13.1 g/dL (13.5-17.5); Immature Grans % 0.5 %; Lactate 1.7 mmol/L (0.6-1.4); Lymphocytes % 15.3 %; MCH 30.1 pg (27.0-33.0); MCHC 31.8 % (32.0-36.0); MCV 95 fL (80-95); MPV 10.2 fL (8.0-11.0); Monocytes % 9.2 %; Neutrophils % 72.4 %; Platelet Count 226 10^3/uL (130-400); RBC 4.35 10^6/uL (4.36-5.78); RDW 12.9 % (11.8-14.1); RDW-SD 44.3 fL; WBC 12.12 10^3/uL (4.4-10.8)
[2023-10-06 09:04] LABS: Absolute Monocyte Count 1.12 10^3/uL (0.1-0.8); Absolute Neutrophil Count 8.77 10^3/uL (1.2-6.7)
[2023-10-06 09:13] LABS: Anion Gap 11.1 mmol/L (3-11); BUN 45 mg/dL (7-18); CO2 24.9 mmol/L (21.0-32.0); Calcium 8.9 mg/dL (8.5-10.1); Chloride 107 mmol/L (98-107); Estimated GFR 14.77 (mL/min/1.73m2); Glucose 163 mg/dL (74-106); Potassium 3.6 mmol/L (3.5-5.1); Sodium 143 mmol/L (136-145)
[2023-10-06 09:14] LABS: CREATININE 3.8 mg/dL (0.70-1.30)
--- NOTE | 2023-10-06 12:18 | PHA.REVIEW2 ---
Pharmacy Admission Review Admission Clinical Review Admission Pharmacy Review: Discharge planning issues (Acute) Chronic kidney disease, stage 4 (severe) (Acute) Sepsis (Acute) Urinary tract infection (Acute) HTN (hypertension) (Acute) adhesive Allergy (Severe, Verified 10/06/23 00:23) significant skin reaction, swelling, erythema, discomfort neomycin Allergy (Verified 10/06/23 00:23) Unknown Resuscitation Status DNR/DNI Height 5 ft 10 in Weight 91.3 kg Pharmacy Admission Review Renal Dosing Renal Dosing: BUN 45 mg/dL (7-18) H 10/06/23 08:50 Creatinine 3.8 mg/dL (0.70-1.30) H* 10/06/23 08:50 Medications needing adjustments: Reviewed (CrCl 15.8 mL/min) List of meds needing interventions: Current medications are okay Anticoagulation Anticoagulation: Hgb 13.1 g/dL (13.5-17.5) L 10/06/23 08:50 Hct 41.2 % (40.0-50.0) 10/06/23 08:50 Plt Count 226 10^3/uL (130-400) 10/06/23 08:50 Creatinine 3.8 mg/dL (0.70-1.30) H* 10/06/23 08:50 DVT Prophylaxis: Reviewed Medications: Apixaban (2.5mg PO BID) Relevant Labs Relevant Labs: Sodium 143 mmol/L (136-145) 10/06/23 08:50 Potassium 3.6 mmol/L (3.5-5.1) 10/06/23 08:50 Chloride 107 mmol/L (98-107) 10/06/23 08:50 Electrolytes, C-Reactive P, ESR: Reviewed (Hgb 13.1) DM Control DM Control: Glucose 163 mg/dL (74-106) H 10/06/23 08:50 Finger Stick Blood Glucose 136 0837 Finger Stick Blood Glucose 136 0837 Finger Stick Blood Glucose 136 0733 Finger Stick Blood Glucose 136 0733 DM Control: Reviewed Insulin Dosing, Diabetic Medication: Has order for SS insulin, 9 units with meals, and insulin detemir daily Cardiac Review Cardiac Review: Troponin I < 50 ng/L (< or =60) 10/06/23 03:16 NT-Pro-B Natriuret Pep 241 pg/mL (<300) 10/06/23 00:04 Blood Pressure 143/70 1132 Blood Pressure 130/63 0731 Blood Pressure 155/76 0432 Blood Pressure 142/46 0346 Blood Pressure 138/59 0301 BP, HR, EF%: Reviewed (BP 143/70 and HR WNL) QTc Review QTc: Reviewed (500 from 10/05/23) IV to PO Switch IV Medications: Reviewed (Ceftriaxone) Home Meds Home Med List reviewed: Reviewed Relevent Home Meds Not ordered & why?: Amlodipine (on hold per H+P), lisinopril (on hold per H+P), metoprolol (on hold per H+P), furosemide (on hold per H+P), albuterol (PRN), fluocinolone, ibuprofen (PRN) and magnesium Current Meds Current Medication Order Review: Intervened Comments: Added IV admission order set Pharmacy Antibiotic Review Relevant Labs: WBC 12.12 10^3/uL (4.4-10.8) H 10/06/23 08:50 Temperature 36.9 C Temperature 36.9 C Temperature 36.1 C Temperature 35.6 C Temperature 35 C Pharmacy Antibiotic Activity: C/S review and Reviewed, no change Comments: Patient is on ceftriaxone day 1 for UTI/sepsis. Urine and blood cultures are pending.
--- NOTE | 2023-10-06 15:04 | PDOC.CMIN ---
Date of service: 10/06/23 Time of Service: 15:04 Care Management Initial Assmt Initial Assessment Reason for Hospitalization: UTI, SIRS Functional Status/Living Situation Patient Presentation: CM met with Cesar before lunch. He was lying in bed trying and trying to rest, conversation was limited. Town of Residence: [facility] Resides with: Spouse (Significant other: [facility]) Significant Other/Family: Out of area (No local family or supports, other than his s/o [facility] [place]. Per 10/06/21 CM intake: Ovidio has 4 children, three daughters and a son. One of his daughters lives in [place]. She is the only child he maintains a relationship with) Employment Status: Retired Instrumental Activities of Daily Living (ADLs): Independent Medications Medication Management: No Issues/Barriers identified Physical Functioning/Mobility Assistive Device: None Advance Directives Advance Directives: Do you have an Advance Directive: N 12/12/20 11:33 AD On File at [facility]: N 12/12/20 11:33 Date Asked 10/06/23 10/06/23 03:23 AD Date Reviewed COLST On File at [facility] COLST Date Scanned Code Status Resuscitation Status DNR/DNI Portal Pt does not currently have a portal and education provided: Yes Insurance Coverage/Financial Issues Insurance: Medicare, AARP ACO Member: No Care Team Visit Care Team Role Provider Type Rolando Moise Primary Care Provider [facility] STAFF PHYSICIAN InPatient Cruz Yuniel Other Providers OTHER Ryan Stafford DO Emergency Provider [facility] STAFF PHYSICIAN Wellington Chinchilla MD Admit Provider [facility] STAFF PHYSICIAN Attending Provider Discharge Potential Discharge Needs: Consult, PT Evaluation and PCP F/U Appt Anticipated Barriers to Discharge: None Identified Patient/Family Education Needs: Review discharge instructions, discuss Ask Me Three Transportation: Private vehicle Plan: Cesar will likely be discharged home with new services, if indicated. He will follow up with his PCP and plan of care and transport with family. CM will continue to support Cesar and his discharge needs. PFSH All Active Problems (Updated 10/06/23 @ 08:17 by Wellington Chinchilla MD) Discharge planning issues (Acute) Chronic kidney disease, stage 4 (severe) (Acute) Sepsis (Acute) Urinary tract infection (Acute) Medication management (Acute) amiodarone for afib EKG Q 12 Months RH HTN (hypertension) (Acute) CAD (coronary artery disease) (Chronic) Dermatitis (Acute) Atrial fibrillation (Chronic) Chest pain (Acute) Acute non-ST elevation myocardial infarction (NSTEMI) (Acute) Wound dehiscence, surgical (Acute) Type 2 diabetes mellitus (Chronic) Fatty liver (Acute) Chronic kidney disease, stage 3 (Chronic) Mass of salivary gland (Acute) Ischemic cardiomyopathy (Chronic) Skin lesion of scalp (Acute) Anemia (Chronic) Hearing impairment (Acute) Medical History HLD (hyperlipidemia) Former smoker Balanitis Atrial flutter Edema [place]'s disease Phimosis (10/17/15) Erectile dysfunction AAA (abdominal aortic aneurysm) Hypomagnesemia CHF (congestive heart failure) Renal insufficiency 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) Diverticulitis of large intestine with abscess Hypercholesterolemia Diabetes mellitus Myocardial infarct Phimosis Surgical History Status post colostomy takedown (~03/01/20) S/P left hemicolectomy (~07/19/18) H/O phimosis s/p repair History of heart artery stent S/P hernia repair History of endovascular stent graft for abdominal aortic aneurysm (AAA) Social History Smoking/Tobacco Use Status: Former Tobacco Use Quit Date: 01/03/17 Tobacco: How many years used: 60 Smoking risk assessment performed?: Yes Alcohol Intake: former Drug use: Never Substance use type: does not use Housing: house Do you feel safe at home: Yes Do you feel safe in your relationship?: Yes SDOH(Care Management) Screening Will the Patient Participate in the Screening?: Yes Do you worry about having a steady place to live?: no In the past 12 months, have you had to go without electric, gas, oil or water in your home?: no Have you or anyone in your house had to go without enough food to eat?: no Has lack of transportation kept you from medical appointments or from doing things needed for daily living?: no Has anyone in your support network made you feel unsafe for any reason?: no
[2023-10-06] MEDS: Atorvastatin 40 MG TAB PO (19:36)
[2023-10-07 03:06] VITALS: BP 151/68; PULSE 54; RESP 18; TEMP 36.8; O2SAT 93
[2023-10-07 06:25] LABS: Abs Immature Grans 0.03 10^3/uL (0.0-0.06); Absolute Basophil Count 0.06 10^3/uL (0.0-0.2); Absolute Eosinophil Count 0.35 10^3/uL (0.0-0.7); Absolute Lymphocyte Count 1.84 10^3/uL (1.2-3.4); Absolute Monocyte Count 0.98 10^3/uL (0.1-0.8); Absolute Neutrophil Count 5.81 10^3/uL (1.2-6.7); Basophils % 0.7 %; Eosinophils % 3.9 %; HCT 38.4 % (40.0-50.0); Immature Grans % 0.3 %; Lymphocytes % 20.3 %; MCH 29.3 pg (27.0-33.0); MCHC 31.3 % (32.0-36.0); MCV 94 fL (80-95); MPV 10.5 fL (8.0-11.0); Monocytes % 10.8 %; Platelet Count 206 10^3/uL (130-400); RBC 4.09 10^6/uL (4.36-5.78); RDW 12.7 % (11.8-14.1); RDW-SD 43.8 fL; WBC 9.07 10^3/uL (4.4-10.8)
[2023-10-07 06:41] LABS: Anion Gap 10.6 mmol/L (3-11); BUN 42 mg/dL (7-18); CO2 26.4 mmol/L (21.0-32.0); Calcium 8.7 mg/dL (8.5-10.1); Chloride 108 mmol/L (98-107); Estimated GFR 15.76 (mL/min/1.73m2); Glucose 117 mg/dL (74-106); Potassium 3.9 mmol/L (3.5-5.1); Sodium 145 mmol/L (136-145)
[2023-10-07 06:44] LABS: CREATININE 3.6 mg/dL (0.70-1.30)
[2023-10-07 07:48] VITALS: BP 131/53; PULSE 62; RESP 18; TEMP 37.6; O2SAT 92
[2023-10-07] MEDS: Tamsulosin 0.4 MG CAPCR PO (08:09)
[2023-10-07] MEDS: Cyanocobalamin 500 MCG TAB 1000 MCG PO (08:09)
[2023-10-07] MEDS: Amiodarone 200 MG TAB PO (08:09)
[2023-10-07] MEDS: Apixaban 2.5 MG TAB PO (08:09)
[2023-10-07] MEDS: Insulin Aspart 300 UNITS/3 ML PEN 9 UNITS SC ×2 (08:10→11:53)
[2023-10-07] MEDS: Cefpodoxime 200 MG TAB PO (08:28)
--- NOTE | 2023-10-07 08:51 | W.PM.DS.N ---
Date of service: 10/07/23 Time of Service: 08:54 DS: Diagnosis Discharge Diagnosis (1) Severe sepsis: Status: Acute Asessment and Plan: -patient met severe sepsis criteria on admission with WBC 13.8, RR of 28, UTI as source of infection, and YEYO on CKD with Cr 4.2 on admission (recent baseline 3.3-3.8) -initially treated with IV CTX with significant improvement -transitioned to PO cefpodoxime for additional 5 days (2) Urinary tract infection: Status: Acute Asessment and Plan: -as noted above (3) HTN (hypertension): Status: Acute Asessment and Plan: -continue home regimen (4) Atrial fibrillation: Status: Chronic Asessment and Plan: -continue home eliquis -toprol-XL decreased from 50mg to 25mg as patient had bradycardia with HR high 40's to mid 60's (though he does have mild baseline bradycadia) (5) Acute kidney injury superimposed on CKD: Status: Acute Asessment and Plan: -as noted above, baseline Cr recently 3.3-3.8, was up to 4.2 on admission -back down to 3.6 on discharge (6) Type 2 diabetes mellitus: Status: Chronic Asessment and Plan: -continue home insulin regimen (7) Ischemic cardiomyopathy: Status: Chronic Asessment and Plan: -continue home medication regimen (8) Chronic kidney disease, stage 4 (severe): Status: Acute Asessment and Plan: -as noted above Discharge Plan Disposition Patient Disposition: Home Condition: Good Discharge Details Reason For Visit: UTI, SIRS Admit Date/Time: 10/06/23 02:53 Admit Provider: Wellington Chinchilla Attending Provider: Wellington Chinchilla [facility] Hospital Course: Patient initially presented with signs and symptoms including diaphoresis, chills weakness and dizziness with EMS reporting the patient was bradycardic and hypotensive but improved after IV fluids. While in the emergency department discomfort the patient had acute on chronic kidney disease, as well as urinary tract infection for which she was treated with ceftriaxone. Patient made significant improvement and was transitioned to p.o. cefpodoxime for duration of antibiotic therapy and was determined to be stable for discharge home. Additionally, patient was also bradycardic during hospitalization despite 50 mg Toprol-XL being held. Does appear the patient has history of some mild bradycardia while on his rate control medications, but heart rates were in the 60s to high 40s during hospitalization. Therefore, home dose of Toprol-XL has been cut in half to 25 mg daily and is recommended that PCP be aware and have close follow-up. Home Meds and New Rx's Prescriptions: New cefpodoxime 200 mg Tablet 200 mg PO BID 5 Days Qty: 10 0RF Continued lisinopril 5 mg tablet 5 mg PO DAILY amiodarone 200 mg tablet 200 mg PO DAILY Patient Comments: 11/27/20 started at [facility] for afib, pt was loaded on 400 mg BID for 7 days, RH tamsulosin 0.4 mg capsule 0.4 mg PO DAILY amlodipine 2.5 mg tablet 2.5 mg PO DAILY fluocinolone 0.01 % cream 1 applic topical BID magnesium oxide 400 mg magnesium capsule 400 mg PO BID Patient Comments: pt. reports he has been out of it nitroglycerin [Nitrostat] 0.4 mg tablet, sublingual 0.4 mg sublingual Q5 MIN PRN X3 PRN Rx Instructions: as a single dose; administer 5-10 minutes before situation known to precipitate angina attack apixaban 2.5 mg tablet 2.5 mg PO BID Patient Comments: 11/27/20 started at [facility] due to elevated creatinine 2.4 RH insulin aspart U-100 [Novolog U-100 Insulin aspart] 100 unit/mL solution 9 unit subcut TID Levemir U-100 Insulin 100 unit/mL solution 25 unit subcut DAILY ibuprofen 200 MG capsule 600 - 800 mg PO PRN PRN atorvastatin [Lipitor] 40 MG tablet 40 mg PO QPM acetaminophen [Acetaminophen Extra Strength] 500 mg Tablet 1,000 mg PO Q8H PRN cyanocobalamin (vitamin B-12) 1,000 mcg Tablet 1,000 mcg PO DAILY furosemide 40 mg tablet 80 mg PO DAILY albuterol sulfate 90 mcg/actuation HFA aerosol inhaler 2 puff INHALATION ONCE PRN Patient Comments: INHALE TWO PUFFS BY MOUTH EVERY 4 TO 6 HOURS NEEDED Changed metoprolol succinate 50 mg tablet extended release 24 hr 25 mg PO DAILY Qty: 0 0RF Discharge Instructions Instructions: Urinary Tract Infection in Men (DC), Urinary Tract Infection in Older Adults (DC) Activity:: Activity as Tolerated Equipment/Supplies:: No Equipment Needed Diet:: As Tolerated Discharge Orders Discharge Orders: Discharge Order (Routine); Ordered 10/07/23 Ordered By: Moisés Martinez DS: Summary Time Spent with Patient providing and/or coordinating discharge services: Greater than 30 minutes Status at Discharge Functional status at discharge: independent ambulation Overall status at discharge: patient is back to baseline Mental Status: mental status grossly normal Speech and Movement: speech and movement normal Mood: congruent mood Affect: normal affect Quality:SDOH Health Related Social Needs: No Data to Display Exam Narrative Exam Narrative: Well appearing older gentleman sitting up in the vickie in no acute distress, AOx4, heart RRR, lungs CTAB, abdomen soft, non-tender, non-distended Psych Mental Status: mental status grossly normal Speech and Movement: speech and movement normal Mood: congruent mood Affect: normal affect DS: Data Vitals/I&O Vitals and I&O: Vital Signs Temperature 99.7 F H 10/07/23 07:48 Temperature Source Tympanic 10/07/23 07:48 Pulse 62 10/07/23 07:48 Pulse Rhythm Regular 10/06/23 22:25 Pulse 56 L 10/06/23 04:00 Respiratory Rate 18 10/07/23 07:48 Respiratory Effort Normal, Non-Labored 10/06/23 22:25 Respiratory Depth Normal 10/06/23 22:25 Respiratory Pattern Normal 10/06/23 22:25 Blood Pressure 131/53 L 10/07/23 07:48 Blood Pressure Mean 81 10/06/23 03:46 Blood Pressure Position Sitting 10/06/23 00:00 Pulse Oximetry 92 10/07/23 07:48 Oxygen Delivery Method Room Air 10/07/23 07:48 Oxygen Flow Rate 0 10/07/23 07:48 Pain Level 0 10/07/23 07:48 Comment nurse in room. 10/06/23 11:32 Intake & Output 10/06/23 10/07/23 10/07/23 17:59 05:59 17:59 Intake Total 1530 / 1530 890 / 2420 340 / 340 Output Total 300 / 300 Balance 1230 / 1230 890 / 2120 340 / 340 Weight 205 lb Intake: IV 410 / 410 50 / 460 Oral 1120 / 1120 840 / 1960 340 / 340 Output: Urine 300 / 300 Other: Urine Color Yellow Yellow Yellow Urine Appearance Clear Urine Odor Normal Voiding Methods Urinal Toilet Toilet Data Completed and Pending Labs on day of discharge: Labs from last 24 hours 10/07/23 10/06/23 05:39 08:50 WBC 9.07 12.12 H RBC 4.09 L 4.35 L Hgb 12.0 L 13.1 L Hct 38.4 L 41.2 MCV 94 95 MCH 29.3 30.1 MCHC 31.3 L 31.8 L RDW 12.7 12.9 Plt Count 206 226 MPV 10.5 10.2 Immature Gran % 0.3 0.5 Neutrophils % 64.0 72.4 Lymphocytes % 20.3 15.3 Monocytes % 10.8 9.2 Eosinophils % 3.9 2.0 Basophils % 0.7 0.6 Nucleated RBC % 0.0 0.0 Absolute Neutrophils 5.81 8.77 H Absolute Lymphocytes 1.84 1.85 Absolute Monocytes 0.98 H 1.12 H Absolute Eosinophils 0.35 0.24 Absolute Basophils 0.06 0.07 VBG Lactate 1.7 H Sodium 145 143 Potassium 3.9 3.6 Chloride 108 H 107 Carbon Dioxide 26.4 24.9 Anion Gap 10.6 11.1 H BUN 42 H 45 H Creatinine 3.6 H* 3.8 H* Est GFR (CKD-EPI 2020) 15.76 14.77 Glucose 117 H 163 H Calcium 8.7 8.9 Preliminary micro results at discharge 10/06/23 00:44 Urine Culture - Preliminary Urine - Reflex from Ua Gram Positive Sandra Gram Positive Sandra#2 10/06/23 01:45 Blood Culture - Preliminary Blood NO GROWTH 24 HOURS 10/06/23 01:40 Blood Culture - Preliminary Blood NO GROWTH 24 HOURS PFSH All Active Problems (Updated 10/07/23 @ 08:59 by Moisés Martinez MD) Acute kidney injury superimposed on CKD (Acute) Severe sepsis (Acute) Discharge planning issues (Acute) Chronic kidney disease, stage 4 (severe) (Acute) Sepsis (Acute) Urinary tract infection (Acute) Medication management (Acute) amiodarone for afib EKG Q 12 Months RH HTN (hypertension) (Acute) CAD (coronary artery disease) (Chronic) Dermatitis (Acute) Atrial fibrillation (Chronic) Chest pain (Acute) Acute non-ST elevation myocardial infarction (NSTEMI) (Acute) Wound dehiscence, surgical (Acute) Type 2 diabetes mellitus (Chronic) Fatty liver (Acute) Chronic kidney disease, stage 3 (Chronic) Mass of salivary gland (Acute) Ischemic cardiomyopathy (Chronic) Skin lesion of scalp (Acute) Anemia (Chronic) Hearing impairment (Acute) Medical History HLD (hyperlipidemia) Former smoker Balanitis Atrial flutter Edema [place]'s disease Phimosis (10/17/15) Erectile dysfunction AAA (abdominal aortic aneurysm) Hypomagnesemia CHF (congestive heart failure) Renal insufficiency 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) Diverticulitis of large intestine with abscess Hypercholesterolemia Diabetes mellitus Myocardial infarct Phimosis Surgical History Status post colostomy takedown (~03/01/20) S/P left hemicolectomy (~07/19/18) H/O phimosis s/p repair History of heart artery stent S/P hernia repair History of endovascular stent graft for abdominal aortic aneurysm (AAA) Social History Smoking/Tobacco Use Status: Former Tobacco Use Quit Date: 01/03/17 Tobacco: How many years used: 60 Smoking risk assessment performed?: Yes Alcohol Intake: former Drug use: Never Substance use type: does not use Housing: house Do you feel safe at home: Yes Do you feel safe in your relationship?: Yes Time Spent with Patient Time Spent with Patient: <45 minutes Time was spent: preparing to see the patient(eg.review tests), obtaining and/or reviewing separately otained hiistory, ordering medications,tests, procedures, referring, communicating with other health clinical care manager, indepentently interpreting results, counseling the patient and care coordination
--- NOTE | 2023-10-07 09:24 | CMDISCH_ITS ---
Date of service: 10/07/23 Time of Service: 09:24 LACE Index Scoring Tool Questions: Length of Stay (in days): 1 Was the patient admitted via the E.D.?: Yes Comorbidities: Previous M.I., Diabetes w/o Complication, with End Organ Damage and Liver or Renal Disease E.D. Visits: 3 Answers: Total Score: 12 Risk of Readmission: High Risk Care Management Discharge Plan Reason for Hospitalization: UTI, SIRS Discharge Plan: Cesar is discharged home on 5 day course of Cefpodoxime. Pt will follow up with community providers and his discharge plan of care as instructed. Pt is driven home via private vehicle with his insert molding operator Montse. He will follow up with community providers and his discharge plan of care as instructed. Cesar was evaluated by PT during his admission, No new services are ordered prior to discharge. Patient/Family Education Needs: Review discharge instructions, limitations, medications and plan to follow up with community providers. Discuss ask me three. [facility] Health Related Social Needs: No Data to Display
[2023-10-07 10:27] LABS: Lyme Ab w Rflx to Lyme Confirm Negative (Negative)
[2023-10-07 11:27] VITALS: BP 160/68; PULSE 64; RESP 16; TEMP 36.4; O2SAT 97
[2023-10-08 19:10] LABS: Anaplasma phagocytophilum Negative (Negative); B. miyamotoi PCR Negative (Negative); Babesia divergens/MO-1 Negative (Negative); Babesia duncani Negative (Negative); Babesia microti Negative (Negative); Ehrlichia chaffeensis Negative (Negative); Ehrlichia ewingii/canis Negative (Negative); Ehrlichia muris eauclairensis Negative (Negative)
== END 2023-10-07 12:57 | disposition home or self-care (01) | DRG 872 ==
LOC: ER 10-06 03:23 → MS 10-06 04:19
PROVIDERS: Admitting Provider Internal Medicine; Emergency Provider Student in an Organized Health Care Education/Training Program; PCP Family Medicine; Visit Provider Internal Medicine
DX: A41.9 Sepsis, unspecified organism (principal); N17.9 Acute kidney failure, unspecified; N30.00 Acute cystitis without hematuria; N18.4 Chronic kidney disease, stage 4 (severe); I50.30 Unspecified diastolic (congestive) heart failure; I13.0 Hypertensive heart and chronic kidney disease with heart failure and stage 1 through stage 4 chronic kidney disease, or unspecified chronic kidney disease; I48.92 Unspecified atrial flutter; R65.20 Severe sepsis without septic shock; I48.0 Paroxysmal atrial fibrillation; E11.22 Type 2 diabetes mellitus with diabetic chronic kidney disease; I25.5 Ischemic cardiomyopathy; R00.1 Bradycardia, unspecified; Z79.899 Other long term (current) drug therapy; Z79.4 Long term (current) use of insulin; Z79.01 Long term (current) use of anticoagulants; N40.1 Benign prostatic hyperplasia with lower urinary tract symptoms; R33.9 Retention of urine, unspecified; I25.10 Atherosclerotic heart disease of native coronary artery without angina pectoris; I25.2 Old myocardial infarction; Z90.49 Acquired absence of other specified parts of digestive tract; I71.40 Abdominal aortic aneurysm, without rupture, unspecified; K76.0 Fatty (change of) liver, not elsewhere classified; D64.9 Anemia, unspecified; Z87.891 Personal history of nicotine dependence; E78.00 Pure hypercholesterolemia, unspecified; Z95.828 Presence of other vascular implants and grafts
CPT/HCPCS: 00123; 36415; 80048; 80053; 87040; 87637; 87798; 93005; 96365; 96366; 96367; 97161; 99285; 71045; 74176; 81003; 81015; 83605; 83880; 84439; 84443; 84484; 85025; 86618; 87086; 93010; 99222; 99238; J0131; J0696; J1815

== ENCOUNTER → 2023-10-09 14:44 | Outpatient (CLI) | payer MEDICARE, SELFPAY ==
--- NOTE | 2023-10-09 14:43 | DI.RAD_ITS ---
Exam(s) XR KNEE LT 3V AP,LAT,SADIE EXAM: XR KNEE LT 3V AP,LAT,SADIE CLINICAL HISTORY: PAIN OF L KNEE JOINT, M25.562. TECHNIQUE: 2D digital imaging was performed. COMPARISON: CR XR KNEE LT 3V AP,LAT,SADIE from 07/30/2022 FINDINGS: 3 views No evidence of acute fracture. Small joint effusion noted. There is no narrowing of the medial late ral compartments. Prominent enthesophyte is seen off the superior aspect of the patella, previously present IMPRESSION: No acute fractures. Small joint effusion. Other findings as above. DATA REPOSITORY: RADIATION DOSE DELIVERED:
== END ==
PROVIDERS: PCP Family Medicine; Visit Provider Physician Assistant Medical
DX: M25.562 Pain in left knee (principal)
CPT/HCPCS: 73562

== ENCOUNTER 2023-10-09 16:38 | Outpatient (REF) | payer MEDICARE, SELFPAY ==
[2023-10-13 13:06] LABS: Lyme Ab w Rflx to Lyme Confirm Negative (Negative)
== END 2023-10-09 16:39 | disposition home or self-care (01) ==
LOC: LBN 16:38
PROVIDERS: PCP Student in an Organized Health Care Education/Training Program; Visit Provider Physician Assistant Medical
DX: M25.562 Pain in left knee (principal); Z01.84 Encounter for antibody response examination
CPT/HCPCS: 86618

== ENCOUNTER 2023-10-13 10:36 | Outpatient (REF) | payer MEDICARE, SELFPAY ==
[2023-10-13 16:17] LABS: Abs Immature Grans 0.16 10^3/uL (0.0-0.06); Absolute Basophil Count 0.03 10^3/uL (0.0-0.2); Absolute Eosinophil Count 0.03 10^3/uL (0.0-0.7); Absolute Lymphocyte Count 1.55 10^3/uL (1.2-3.4); Absolute Monocyte Count 0.97 10^3/uL (0.1-0.8); Basophils % 0.2 %; Eosinophils % 0.2 %; HCT 41.2 % (40.0-50.0); HGB 13.3 g/dL (13.5-17.5); Lymphocytes % 9.6 %; MCH 29.9 pg (27.0-33.0); MCHC 32.3 % (32.0-36.0); MCV 93 fL (80-95); MPV 10.5 fL (8.0-11.0); Platelet Count 325 10^3/uL (130-400); RBC 4.45 10^6/uL (4.36-5.78); RDW 12.5 % (11.8-14.1); RDW-SD 42.8 fL; WBC 16.18 10^3/uL (4.4-10.8)
[2023-10-13 16:26] LABS: Absolute Neutrophil Count 13.43 10^3/uL (1.2-6.7)
[2023-10-13 16:31] LABS: Uric Acid 9.8 mg/dL (3.5-7.2)
[2023-10-13 16:45] LABS: ESR 40 mm/hr (0-20)
== END 2023-10-13 10:37 | disposition home or self-care (01) ==
LOC: NCHCN 10:36
PROVIDERS: PCP Family Medicine; Visit Provider Student in an Organized Health Care Education/Training Program
DX: M25.562 Pain in left knee (principal); R70.0 Elevated erythrocyte sedimentation rate
CPT/HCPCS: 85652; 84550; 85025

== ENCOUNTER → 2023-10-14 14:22 | Outpatient (BNVA) | payer MEDICARE, SELFPAY | PROVIDERS: PCP Student in an Organized Health Care Education/Training Program; Referring Provider Student in an Organized Health Care Education/Training Program; Visit Provider Student in an Organized Health Care Education/Training Program | DX: M65.312 Trigger thumb, left thumb (principal); M10.9 Gout, unspecified | CPT/HCPCS: 99214 ==

== ENCOUNTER 2023-10-24 01:52 | Outpatient (CLI) | payer MEDICARE, SELFPAY ==
[2023-10-24 15:57] LABS: ESR 22 mm/hr (0-20)
[2023-10-24 16:27] LABS: Uric Acid 9.9 mg/dL (3.5-7.2)
== END 2023-10-24 01:53 | disposition home or self-care (01) ==
LOC: LBO 01:52
PROVIDERS: PCP Student in an Organized Health Care Education/Training Program; Visit Provider Student in an Organized Health Care Education/Training Program
DX: M10.9 Gout, unspecified (principal)
CPT/HCPCS: 36415; 85652; 84550

== ENCOUNTER 2023-11-11 15:11 | Outpatient (REF) | payer MEDICARE, SELFPAY ==
[2023-11-11 16:16] LABS: ESR 28 mm/hr (0-20)
[2023-11-11 16:50] LABS: Uric Acid 10.9 mg/dL (3.5-7.2)
== END 2023-11-11 15:12 | disposition home or self-care (01) ==
LOC: NCHCN 15:11
PROVIDERS: PCP Student in an Organized Health Care Education/Training Program; Visit Provider Student in an Organized Health Care Education/Training Program
DX: M10.9 Gout, unspecified (principal)
CPT/HCPCS: 85652; 84550

== ENCOUNTER 2023-12-05 11:33 | Emergency (ER) | payer MEDICARE, SELFPAY | END 2023-12-05 11:38 | disposition left against medical advice (07) | LOC: ER 11:36 | PROVIDERS: PCP Student in an Organized Health Care Education/Training Program | DX: Z53.21 Procedure and treatment not carried out due to patient leaving prior to being seen by health care provider (principal) ==

== ENCOUNTER 2023-12-21 07:42 | Emergency (ER) | payer MEDICARE, SELFPAY ==
[2023-12-21 07:48] VITALS: BP 130/51; PULSE 70; RESP 16; TEMP 36.3; O2SAT 95
--- OUTSIDE RECORDS SUMMARY | 2023-12-21 07:51 | XMS_ITS | Encounter Summary ---
Author Organization [facility] Address [address] [place] [address] Care Team Providers Care Internet Network Specialist Name Role Phone Unavailable Primary Care Provider Unavailabl e Encounter Details Date Type Department Care Team (Late st Contact Info) Description 08/06/2001 Results Only [facility] [place] conversion [address] [place] [address] Arely Schroeder MD [address] [place] [id number] Social History Tobacco Use Types Packs/Day Years Used Date Smoking Tobacco: Never Assessed Sex and Gender Information Value Date Recorded Sex Assigned at Not on file Gender Identity Not on file Sexual Orientation Not on file documented as of this encounter Plan of Treatment Not on file documented as of this encounter Procedures Procedure Name Priority Date/Time Associated Diagnosis Comments SURGICAL PATHOLOGY Routine 08/06/2001 0:00 EST documented in this encounter Results * SURGICAL PATHOLOGY (08/06/2001 0:00 EST) Pathology Report: SURGICAL PATHOLOGY REPORT Reports generated via electronic interface contain original data; however they are lacking the format of the original report. Caution should be taken when reading/interpreti ng unformatted reports. Name: ? CALI THOMPSON Mamie ? Accession #: ? [id number] ? : ? 1935 (Age: 65) ??M ? Collect Date: ? 08/06/2001 ? Location: ? [facility] ? Receive Date: ? 08/07/2001 ? Provider: JERMAINE SCHROEDER MD Copy to: ARELY CHRISTINE MD ? Final Pathologic Diagnosis: ? 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 Document reviewed and electronically signed by: Tali Segovia MD Report ??Date: 08/10/2001 17:22 By the signature above, the attending physician certifies that he/she has personally conducted a gross and/or microscopic examination of the described specimens and rendered or confirmed the above diagnosis. Specimen(s) Received: ? Polyp at 20 cm Clinical History: ? Heme (+) stool Gross Description: ? Received in Hollande' s fixative labelled Thompson and polyp at 20 cm is a francisco-pink irregular 0.5 x 0.4 x 0.3 cm soft tissue fragment. ??The specimen is entirely submitted in one cassette. ??(Bobbi Sorensen/adarsh End of Report [facility] 08/06/2001 08/07/2001 8:4 5 EST Arely Schroeder MD PATHOLOGY ORDERABLES Performing Organization Address City/State/[facility] Co de Phone Number [facility] [address] [place] [address] documented in this encounter Visit Diagnoses Not on filedocumented in this encounter
--- OUTSIDE RECORDS SUMMARY | 2023-12-21 07:51 | XMS_ITS | Encounter Summary ---
Author Organization [facility] Address [address] [place] [address] Care Team Providers Care Food Service Specialist Name Role Phone Rolando Moise MD Primary Care Provider [phone] Encounter Details Date Type Department Care Team (Late st Contact Info) Description 10/10/2023 Lab Requisition [facility] Pathology & Laboratory Medicine - [address] [id number] Outr Resulting Lab, Provider Social History Tobacco Use Types Packs/Day Years Used Date Smoking Tobacco: Never Assessed Interpersonal Safety Answer Date Record ed Physically Hurt Never 12/05/2019 Verbally Threaten Not on file 12/05/2019 Sex and Gender Information Value Date Recorded Sex Assigned at Not on file Gender Identity Not on file Sexual Orientation Not on file documented as of this encounter Plan of Treatment Not on file documented as of this encounter Procedures Procedure Name Priority Date/Time Associated Diagnosis Comments LYME AB Routine 10/09/2023 14:15 EDT documented in this encounter Results * LYME AB (10/09/2023 14:15 EDT) Lyme Ab Negative Negative 10/13/2023 13:01 EDT [facility] Blood VENOUS BLOOD / Unknown 10/09/2023 14:15 EDT 10/10/2023 17:29 EDT Provider Outr Resulting Lab IMMUNOLOGY A ND SEROLOGY ORDERABLES [facility] [address] [place] [address] documented in this encounter Visit Diagnoses Not on filedocumented in this encounter Care Teams Food Service Specialist Relationship Specialty Start Date End Date Rolando Moise MD [address] [place] [address] PCP - General 10/30/16 documented as of this encounter
--- OUTSIDE RECORDS SUMMARY | 2023-12-21 07:51 | XMS_ITS | Encounter Summary ---
Author Organization [facility] Address [address] [place] [address] Care Team Providers Care Site Safety Representative Name Role Phone Rolando Moise MD Primary Care Provider [phone] Encounter Details Date Type Department Care Team (Latest Contact Info) Description 11/07/2020 Travel Social History Tobacco Use Types Packs/Day Years Used Date Smoking Tobacco: Never Assessed Interpersonal Safety Answer Date Record ed Physically Hurt Never 12/05/2019 Verbally Threaten Not on file 12/05/2019 Sex and Gender Information Value Date Recorded Sex Assigned at Not on file Gender Identity Not on file Sexual Orientation Not on file COVID-19 Exposure Response Date Recorded In the last month, have you been in contact with someone who was confirmed or suspected to have Coronavirus / COVID-19? No / Unsure 11/07/2020 4:15 EDT documented as of this encounter Plan of Treatment Not on file documented as of this encounter Visit Diagnoses Not on filedocumented in this encounter Care Teams Site Safety Representative Relationship Specialty Start Date End Date Rolando Moise MD [facility] [place] [address] PCP - General 10/30/16 documented as of this encounter
--- OUTSIDE RECORDS SUMMARY | 2023-12-21 07:51 | XMS_ITS | Clinical Summary ---
Author Organization [facility] Address [address] [place] [address] Care Team Providers Care Oriental Medicine Practitioner Name Role Phone Rolando Moise MD Primary Care Provider Encounters Date Type Department Care Team Description 10/10/2023 Lab Requisition [facility] Pathology & Laboratory [address] [address] Outr Resulting Lab, Provider 10/06/2023 Lab Requisition [facility] Pathology & Laboratory [address] [address] Outr Resulting Lab, Provider from Last 3 Months Social History Tobacco Use Types Packs/Day Years Used Date Smoking Tobacco: Never Assessed Interpersonal Safety Answer Date Record ed Physically Hurt Never 12/05/2019 Verbally Threaten Not on file 12/05/2019 Sex and Gender Information Value Date Recorded Sex Assigned at Not on file Gender Identity Not on file Sexual Orientation Not on file Last Filed Vital Signs Vital Sign Reading Time Taken Comments Blood Pressure 172/112 11/07/2020 0414 EDT Prior to transfer. Pulse 146 11/07/2020 0414 EDT Temperature 36.5 ??C (97.7 ??F) 11/07/2020 0 414 EDT Respiratory Rate 19 11/07/2020 0414 EDT Oxygen Saturation 97% 11/07/2020 041 4 EDT Inhaled Oxygen Concentration - - Weight 89 kg (196 lb 3.4 oz) 11/07/2020 0414 EDT Height - - Body Mass Index - - Plan of Treatment Health Maintenance Due Date Last Done Comments RSV Immunization ( o r 60+ Years) (1 - 1-dose 60+ series) 1996 Fall Risk Screening 2001 COVID-19 Vaccine ( season) 2023 Procedures Procedure Name Priority Date/Time Associated Diagnosis Comments LYME AB Routine 10/09/2023 14:15 EDT LYME AB Routine 10/06/2023 0:04 EDT from Last 3 Months Results * LYME AB (10/09/2023 14:15 EDT) Only the most recent of2 resultswithin the time period is included. Lyme Ab Negative Negative 10/13/2023 13:01 EDT [facility] Blood VENOUS BLOOD / Unknown 10/09/2023 14:15 EDT 10/10/2023 17:29 EDT Provider Outr Resulting Lab IMMUNOLOGY A ND SEROLOGY ORDERABLES Performing Organization Address City/State/[facility] Co de Phone Number [facility] [address] [place] [address] from Last 3 Months Care Teams Oriental Medicine Practitioner Relationship Specialty Start Date End Date Rolando Moise MD [facility] [address] [place] [place] [address] PCP - General 10/30/16
--- OUTSIDE RECORDS SUMMARY | 2023-12-21 07:51 | XMS_ITS | Encounter Summary ---
Author Organization [facility] Address [address] [place] [address] Care Team Providers Care Advertising Specialist Name Role Phone Rolando Moise MD Primary Care Provider [phone] Encounter Details Date Type Department Care Team (Late st Contact Info) Description 03/06/2023 Lab Requisition [facility] Pathology & Laboratory Medicine - [address] [id number] Outr Resulting Lab, Provider Social History Tobacco [...] Procedure Name Priority Date/Time Associated Diagnosis Comments PTH INTACT Routine 03/06/2023 15:45 EDT documented in this encounter Results * (ABNORMAL) PTH INTACT (03/06/2023 15:45 EDT) Intact PTH 104(H) 19 - 88 pg/mL 03/07/2023 18:47 EDT [facility] Blood VENOUS BLOOD / Unknown 03/06/2023 15:45 EDT 03/07/2023 18:28 EDT Provider Outr Resulting Lab CHEMISTRY & BLOOD GAS ORDERABLES [facility] [address] [place] [address] documented in this encounter Visit Diagnoses Not on filedocumented in this encounter Care Teams Advertising Specialist Relationship Specialty Start Date End Date Rolando Moise MD [address] [place] [address] PCP - General 10/30/16 documented as of this encounter
--- OUTSIDE RECORDS SUMMARY | 2023-12-21 07:51 | XMS_ITS | Encounter Summary ---
Author Organization [facility] Address [address] [place] [address] Care Team Providers Care Neurology Manager Name Role Phone Rolando Moise MD Primary Care Provider [phone] Encounter Details Date Type Department Care Team (Late st Contact Info) Description 02/25/2020 Lab Requisition [facility] Pathology & Laboratory Medicine - [facility] [address], [place] [address] Outr Resulting Lab, Provider Social History Tobacco [...] Procedure Name Priority Date/Time Associated Diagnosis Comments DO NOT ORDER STANDALONE - BROAD COVID TEST Today 02/25/2020 9:11 EDT COVID-19 TESTING Routine 02/25/2020 9:11 EDT documented in this encounter Results * DO NOT ORDER STANDALONE - BROAD COVID TEST (02/25/2020 9:11 EDT) COVID-19 rt-PCR Result NEGATIVE Negative 02/26/2020 11:54 EDT [facility] Comment: 2019-novel Coronavirus (2019-nCoV) not detected by the qRT-PCR assay. Consider testing for other respiratory viruses or re-collecting for 2019-nCoV testing. Note: Optimum timing for peak viral levels during infections caused by 2019-nCoV have not been determined. Collection of multiple specimens from the same patient may be necessary to detect the virus. Limitations Positive results are indicative of active infection with SARS-CoV-2 but do not rule out bacterial infection or co-infection with other viruses. The agent detected may not be the definite cause of disease. In addition, detection of viral RNA may not indicate the presence of infectious virus or that SARS-CoV-2 is the causative agent for clinical symptoms. Negative results do not preclude SARS-CoV-2 infection and should not be used as the sole basis for patient management decisions. Negative results must be combined with clinical observations, patient history, and epidemiological information. False negative results may also occur if amplification inhibitors are present in the specimen or if inadequate numbers of organisms are present in the specimen. Optimum specimen types and timing for peak viral levels during infections caused by SARS-CoV-2 have not been fully determined. Collection of multiple specimens (types and time points) from the same patient may be necessary to detect the virus. The test was validated for use with upper respiratory specimens obtained via nasopharyngeal or oropharyngeal swabs in VTM, UTM, M4, M5, M6, saline, and MTM media. The performance of this test has not been established for other specimens. Specimens collected using other FDA recommended Specimen Collection Materials listed in the FDA COVID-19 [employer] communication (July 29, 2019) are processed with the caveat that they were not all validated for use with this test and the result must be interpreted in this context. Furthermore, a false negative results may occur if a specimen is improperly collected, transported or handled. If the virus mutates in the RT-PCR target region, SARS-CoV-2 may not be detected or may be detected less predictably. Inhibitors or other types of interference may produce a false negative result. An interference study evaluating the effect of common cold medications was not performed. This test is not FDA-cleared but its performance characteristics were established by our CLIA-certified, CAP-accredited, high complexity laboratory in accordance with CLIA regulations, [employer] (CAP) guidelines (Jul 22, 2019), and FDA guidance (Jul 03, 2019). This test is only for use under the Food and Drug Administration's Emergency Use Authorization. Swab ENTIRE NASOPHARYNX / Unknown 02/25/2020 9:11 EDT 02/25/2020 15:49 EDT Provider Outr Resulting Lab MICROBIOLOGY - GENERAL ORDERABLES [facility] [place] * COVID-19 TESTING (02/25/2020 9:11 EDT) COVID-19 rt-PCR Result NEGATIVE Negative 02/26/2020 12:38 EDT [facility] Comment: 2019-novel Coronavirus (2019-nCoV) not detected by the qRT-PCR assay. Consider testing for other respiratory viruses or re-collecting for 2019-nCoV testing. Note: Optimum timing for peak viral levels during infections caused by 2019-nCoV have not been determined. Collection of multiple specimens from the same patient may be necessary to detect the virus. Limitations Positive results are indicative of active infection with SARS-CoV-2 but do not rule out bacterial infection or co-infection with other viruses. The agent detected may not be the definite cause of disease. In addition, detection of viral RNA may not indicate the presence of infectious virus or that SARS-CoV-2 is the causative agent for clinical symptoms. Negative results do not preclude SARS-CoV-2 infection and should not be used as the sole basis for patient management decisions. Negative results must be combined with clinical observations, patient history, and epidemiological information. False negative results may also occur if amplification inhibitors are present in the specimen or if inadequate numbers of organisms are present in the specimen. Optimum specimen types and timing for peak viral levels during infections caused by SARS-CoV-2 have not been fully determined. Collection of multiple specimens (types and time points) from the same patient may be necessary to detect the virus. The test was validated for use with upper respiratory specimens obtained via nasopharyngeal or oropharyngeal swabs in VTM, UTM, M4, M5, M6, saline, and MTM media. The performance of this test has not been established for other specimens. Specimens collected using other FDA recommended Specimen Collection Materials listed in the FDA COVID-19 [employer] communication (July 29, 2019) are processed with the caveat that they were not all validated for use with this test and the result must be interpreted in this context. Furthermore, a false negative results may occur if a specimen is improperly collected, transported or handled. If the virus mutates in the RT-PCR target region, SARS-CoV-2 may not be detected or may be detected less predictably. Inhibitors or other types of interference may produce a false negative result. An interference study evaluating the effect of common cold medications was not performed. This test is not FDA-cleared but its performance characteristics were established by our CLIA-certified, CAP-accredited, high complexity laboratory in accordance with CLIA regulations, [employer] (CAP) guidelines (Jul 22, 2019), and FDA guidance (Jul 03, 2019). This test is only for use under the Food and Drug Administration's Emergency Use Authorization. Performing Lab [facility] 02/26/2020 12:38 EDT [facility] Swab 02/25/2020 9:11 EDT 02/25/2020 15:49 EDT Provider Outr Resulting Lab MICROBIOLOGY - GENERAL ORDERABLES [facility] [address] [place] [address] [facility] [place], [place] documented in this encounter Visit Diagnoses Not on filedocumented in this encounter Care Teams Neurology Manager Relationship Specialty Start Date End Date Rolando Moise MD [facility] [place] [address] PCP - General 10/30/16 documented as of this encounter
--- OUTSIDE RECORDS SUMMARY | 2023-12-21 07:51 | XMS_ITS | Encounter Summary ---
Author Organization [facility] Address [address] [place] [address] Care Team Providers Care Tray Setter Name Role Phone Rolando Moise MD Primary Care Provider [phone] Encounter Details Date Type Department Care Team (Late st Contact Info) Description 07/22/[address] [facility] Pathology & Laboratory Medicine - [address] [address] Outr Resulting Lab, Provider Social History Tobacco [...] Date/Time Associated Diagnosis Comments PTH INTACT Routine 07/22/2022 11:00 EDT documented in this encounter Results * PTH INTACT (07/22/2022 11:00 EDT) Intact PTH 82 19 - 88 pg/mL 07/22/2022 22:48 EDT [facility] Blood VENOUS BLOOD / Unknown 07/22/2022 11:00 EDT 07/22/2022 21:28 EDT Provider Outr Resulting Lab CHEMISTRY & BLOOD GAS ORDERABLES [facility] [address] [place] [address] documented in this encounter Visit Diagnoses Not on filedocumented in this encounter Care Teams Tray Setter Relationship Specialty Start Date End Date Rolando Moise MD [facility] [place] [address] PCP - General 10/30/16 documented as of this encounter
--- OUTSIDE RECORDS SUMMARY | 2023-12-21 07:51 | XMS_ITS | Encounter Summary ---
Author Organization [facility] Address [address] [place] [address] Care Team Providers Care Senior Microsoft Net Developer Name Role Phone Rolando Zacarias MD Primary Care Provider Encounter Details Date Type Department Care Team (Late st Contact Info) Description 10/28/2016 Results Only [facility] [phone] Stephani Beltre, [address] [place] [address] Social History Tobacco Use Types Packs/Day Years Used Date Smoking Tobacco: Never Assessed Sex and Gender Information Value Date Recorded Sex Assigned at Not on file Gender Identity Not on file Sexual Orientation Not on file documented as of this encounter Plan of Treatment Not on file documented as of this encounter Procedures Procedure Name Priority Date/Time Associated Diagnosis Comments CYTOPATHOLOGY Routine 10/28/2016 0:00 EDT documented in this encounter Results * CYTOPATHOLOGY (10/28/2016 0:00 EDT) Pathology Report: CYTOPATHOLOGY REPORT Reports generated via electronic interface contain original data; however they are lacking the format of the original report. Caution should be taken when reading/interpreting unformatted reports. Name: ? CALI THOMPSON ? Accession #: ? [id number] : ? 1935 (Age: 80) ??M ?Collect Date: ? 10/28/2016 Location: ? [facility] ? Receive Date: ? 10/29/2016 Provider: ? STEPHANI BELTRE DO Copy to: ?NILSA PRINCE ADJUNCT SPANISH INSTRUCTOR ? CYTOLOGIC DIAGNOSIS: A. NECK/TAIL OF PAROTID, RIGHT ANTERIOR, PALPATION GUIDED FINE NEEDLE ASPIRATION: - Morphologic description only. See comment. B. NECK/TAIL OF PAROTID, RIGHT POSTERIOR, PALPATION GUIDED FINE NEEDLE ASPIRATION: - Nondiagnostic; acellular specimen. ? COMMENT: Specimen (A) consists predominantly of benign salivary gland tissue with focal oncocytic change and mild chronic lymphohistiocytic inflammation. ??Numerous benign salivary gland acini and few ductal groups, some with oncocytic change are present. ??The background is significant for small lymphocytes and few histiocytes. ??In the setting of a mass lesion, the findings are non-diagnostic and may represent surrounding non-lesional salivary gland tissue. ??Given the presence of chronic inflammation, inflammatory processes such as chronic sialadenitis cannot be excluded. ??Correlation with clinical and radiographic findings is essential. ??Hooker Laster slides of this case were reviewed at the intradepartmental consultation conference. Dr. Diez 10/30/2016 12:11 PM Document reviewed and electronically signed by: ? ELICEO DIEZ MD Report Date: ??10/31/2016 06:40 By the signature above, the attending physician certifies that he/she has personally conducted a gross and/or microscopic examination of the described specimens and rendered or confirmed the above diagnosis. Specimen Type: ? A: Head/Neck, Fine Needle Aspiration, Right Anterior Neck B: Head/Neck, Fine Needle Aspiration, Right Posterior Neck Clinical History: ? Right neck mass; tail of parotid. ??clinical diagnosis code: ??D49.0. ? Gross Description: ? A. ??Head/Neck, Fine Needle Aspiration, Right Anterior Neck: ? One vial of Cytolyt was received and processed by selective cellular enhancement technique. ? B. ??Head/Neck, Fine Needle Aspiration, Right Posterior Neck: ? One vial of Cytolyt was received and processed by selective cellular enhancement technique. ? End of Report [facility] 10/28/2016 10/29/2016 9:2 2 EDT Stephani Beltre DO PATHOLOGY ORDER BRIANNE Performing Organization Address City/State/[facility] Co de Phone Number [facility] [address] [place] [address] documented in this encounter Visit Diagnoses Not on filedocumented in this encounter Care Teams Senior Microsoft Net Developer Relationship Specialty Start Date End Date Rolando Zacarias MD [address] [place] [address] PCP - General 12/17/11 10/29/16 documented as of this encounter
--- OUTSIDE RECORDS SUMMARY | 2023-12-21 07:51 | XMS_ITS | Encounter Summary ---
Author Organization [facility] Address [address] [place] [address] Care Team Providers Care Weight Calculator Name Role Phone Rolando Moise MD Primary Care Provider [phone] Reason for Visit * (Routine) - Receiving Office to Obtain Authorization Specialty Diagnoses / Procedures Referred By Teodoro robertson Referred To Contact Procedures CT OUTSIDE IMAGES BODY Unknown, Provider, Referral ID Status Reason Start Date Expiration Date Visits Requested Visits Authorized [id number] Receiving Office to Obtain Authorization 11/07/2020 1 1 Encounter Details Date Type Department Care Team (Latest Contact Info) Description 11/07/2020 12:01 EDT - 11/07/2020 23:59 EDT Hospital Encounter [facility] Secondary Reads [place] Discharge Disposition: Home or Self Care Social History Tobacco Use Types Packs/Day Years [...] 4:15 EDT documented as of this encounter Discharge Disposition Disposition Code Departure Means Destination Home or Self Care documented in this encounter Plan of Treatment Not on file documented as of this encounter Procedures Procedure Name Priority Date/Time Associated Diagnosis Comments CT OUTSIDE IMAGES BODY Routine 11/07/2020 12:01 EDT documented in this encounter Results * CT OUTSIDE IMAGES BODY (11/07/2020 12:01 EDT) Narrative 11/07/2020 12:01 EDT This is a non-reportable exam. Provider Unknown MD [facility] documented in this encounter Visit Diagnoses Not on filedocumented in this encounter Care Teams Weight Calculator Relationship Specialty Start Date End Date Rolando Moise MD [address] [place] [address] PCP - General 10/30/16 documented as of this encounter
--- OUTSIDE RECORDS SUMMARY | 2023-12-21 07:51 | XMS_ITS | Encounter Summary ---
Author Organization [facility] Address [address] [place] [address] Care Team Providers Care Freezing Room Worker Name Role Phone Rolando Zacarias MD Primary Care Provider [phone] Encounter Details Date Type Department Care Team (Latest Contact Info) Description 10/28/2016 9:45 EDT - 10/28/2016 23:59 EDT Hospital Encounter [facility] [address] [place] [address] Unknown, Provider, Discharge Disposition: Home or Self Care Social History Tobacco Use Types Packs/Day Years Used Date Smoking Tobacco: Never Assessed Sex and Gender Information Value Date Recorded Sex Assigned at Not on file Gender Identity Not on file Sexual Orientation Not on file documented as of this encounter Discharge Disposition Disposition Code Departure Means Destination Home or Self [facility] documented in this encounter Plan of Treatment Not on file documented as of this encounter Visit Diagnoses Not on filedocumented in this encounter Care Teams Freezing Room Worker Relationship Specialty Start Date End Date Rolando Zacarias MD [address] [place] [address] PCP - General 12/17/11 10/29/16 documented as of this encounter
--- OUTSIDE RECORDS SUMMARY | 2023-12-21 07:51 | XMS_ITS | Encounter Summary ---
Author Organization [facility] Address [address] [place] [address] Care Team Providers Care Ham Clerk Name Role Phone Rolando Moise MD Primary Care Provider [phone] Encounter Details Date Type Department Care Team (Late st Contact Info) Description 04/05/2021 Lab Requisition [facility] Pathology & Laboratory Medicine - [facility] [address] [place] [address] Rolando Moise MD [address] [place] [address] [place], [place] [id number] Encounter for other general examination Social History Tobacco Use Types Packs/Day Years [...] Priority Date/Time Associated Diagnosis Comments SURGICAL PATHOLOGY Today 04/04/2021 16 :00 EST Encounter for other general examination documented in this encounter Results * SURGICAL PATHOLOGY (04/04/2021 16:00 EST) Note to Patient The following pathology results have been interpreted by your pathologist and may be available to you before your health provider has had the opportunity to review them. Please allow time for your provider to receive these results and explore management options, if applicable. 04/06/2021 11:57 EST [facility] Final Diagnosis A. SKIN OF BACK, RIGHT, PUNCH BIOPSY: -Focal acantholytic dyskeratosis. See comment. 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 04/06/2021 11:57 [facility] Attestation By the signature below, the attending physician certifies that they have 1) personally conducted a gross and/or microscopic examination of the described specimen(s), and/or personally interpreted the results of laboratory testing of the described specimen(s), and 2) personally rendered or confirmed the above diagnosis. 04/06/2021 11:57 [facility] at 1157 Clinical History Inflammatory rash; drug eruption? 04/06/2021 11:57 [facility] Gross Description A. Received in formalin labelled with proper patient identification (initials M, G) and R back, inflammatory rash eruption is a francisco-white and francisco-brown skin punch biopsy measuring 0.5 cm in diameter and excised to a depth of 0.5 cm. Bisected and submitted entirely in A1. QUINN ALY(ASCP) 04/05/2021 19:57 04/06/2021 11:57 [facility] Performing Lab [facility] 04/06/2021 11:57 [facility] Scanned Images 04/06/2021 11:57 [facility] Tissue TISSUE SPECIMEN FROM SKIN / Unknown 04/04/2021 16:00 EST 04/05/2021 17:51 EST Rolando Moise MD PATHOLOGY ORDERABLES [facility] [address] [place] [address] documented in this encounter Visit Diagnoses Diagnosis Encounter for other general examination documented in this encounter Care Teams Ham Clerk Relationship Specialty Start Date End Date Rolando Moise MD [facility] [place] [address] PCP - General 6/28/17 documented as of this encounter
--- OUTSIDE RECORDS SUMMARY | 2023-12-21 07:51 | XMS_ITS | Encounter Summary ---
Author Organization [facility] Address [address] [place] [address] Care Team Providers Care Rn Ccu Name Role Phone Arely Moise MD Primary Care Provider [phone] Encounter Details Date Type Department Care Team (Late st Contact Info) Description 07/19/2018 Results Only [facility] [phone] Aga Reynaga MD [address] [place] [address] Social History Tobacco Use Types [...] Date/Time Associated Diagnosis Comments SURGICAL PATHOLOGY Routine 07/19/2018 11 :12 EDT documented in this encounter Results * SURGICAL PATHOLOGY (07/19/2018 11:12 EDT) Pathology Report: SURGICAL PATHOLOGY REPORT Reports generated via electronic interface contain original data; however they are lacking the format of the original report. Caution should be taken when reading/interpret ing unformatted reports. Name: ? CALI THOMPSON ? Accession #: ? [id number] ? : ? 1935 (Age: 82) ??M ? Collect Date: ? 07/19/2018 ? Location: ? [facility] ? Receive Date: ? 07/20/2018 ? Provider: AGA REYNAGA MD Copy to: ARELY MOISE MD ? Final Pathologic Diagnosis: COLON, SIGMOID, SEGMENTAL RESECTION: - Perforated diverticulitis with acute and chronic inflammation. - Pericolonic abscess. - Diverticulosis. - Surgical margins clear. Document reviewed and electronically signed by: MADISON SOMERS MD Report ??Date: 07/23/2018 10:51 By the signature above, the attending physician certifies that he/she has personally conducted a gross and/or microscopic examination of the described specimens and rendered or confirmed the above diagnosis. Specimen(s) Received: Sigmoid colon Clinical History: Diverticulitis of large intestine with perforation and abscess Gross Description: ? Received in formalin labelled with proper patient identification (initials M, G) and sigmoid colon is oriented segment of sigmoid colon (stitch proximal) (13.5 cm in length x 6.8 cm in luminal circumference), that is received closed and stapled at both ends. There is a moderate amount of attached firm hyperemic mesentery with attached francisco-white exudate. ? Multiple diverticula are present, extending through the muscularis layer into the surrounding adipose tissue. 6.5 cm from the distal margin there is an area of hemorrhage adjacent to a diverticula extending into the adipose tissue. The mucosa in this area is less lobulated, glistening francisco-white with a thickened muscularis layer (0.9 cm). The cut surface of this area has a creamy francisco-red center, representing a probable area of pus and necrosis. The surface of the adipose tissue in this area is firm, hyperemic and coated with a thick francisco-white exudate, representing a probable perforation site. This area measures 3 x 1.8 x 3.5 cm. The wall in the region of the diverticula is thickened, ranging from 1.5 to 0.9. ? The uninvolved mucosa is pink-francisco with the usual folds. The uninvolved serosa is unremarkable. ? Advertising Sales Consultant sections are submitted as follows: BLOCK MOREJON 1- ??proximal margin including diverticula 2- ??distal margin 3-4- ??area of perforation site, full thickness, bisected 5-6- ??area of perforation site, full thickness, bisected 7- ??diverticula Dr. Goode 07/21/2018 1:42 PM End of Report [facility] 07/19/2018 11:1 2 EDT 07/20/2018 11:12 EDT Aga Reynaga MD PATHOLOGY ORDERA JAZZY [facility] [address] [place] [address] documented in this encounter Visit Diagnoses Not on filedocumented in this encounter Care Teams Rn Ccu Relationship Specialty Start Date End Date Arely Moise [place] [address] [place] [address] PCP - General 10/30/16 documented as of this encounter
--- OUTSIDE RECORDS SUMMARY | 2023-12-21 07:51 | XMS_ITS | Referral Summary ---
Author Organization [facility] Address [address] [place] [address] Care Team Providers Care Neuropathologist Name Role Phone Rolando Moise MD Primary Care Provider [phone] Encounters Date Type Department Care Team Description 10/10/2023 Lab Requisition [facility] Pathology & Laboratory [address] [address] Outr Resulting Lab, Provider 10/06/2023 Lab Requisition [facility] Pathology & Laboratory [address] [address] Outr Resulting Lab, Provider from Last 3 [...] Mass Index - - Plan of Treatment Not on file Procedures Procedure Name Priority Date/Time Associated Diagnosis Comments LYME AB Routine 10/09/2023 14:15 EDT LYME AB Routine 10/06/2023 0:04 EDT from Last 3 Months Results * LYME AB (10/09/2023 14:15 EDT) Only the most recent of2 resultswithin the time period is included. Lyme Ab Negative Negative 10/13/2023 13:01 EDT [facility] Blood VENOUS BLOOD / Unknown 10/09/2023 14:15 EDT 10/10/2023 17:29 EDT Provider Outr Resulting Lab IMMUNOLOGY A ND SEROLOGY ORDERABLES [facility] [address] [place] [address] from Last 3 Months Care Teams Neuropathologist Relationship Specialty Start Date End Date Rolando Moise MD [address] [facility] [place] [address] PCP - General 10/30/16
--- OUTSIDE RECORDS SUMMARY | 2023-12-21 07:51 | XMS_ITS | Encounter Summary ---
Author Organization [facility] Address [address] [place] [address] Care Team Providers Care Sales Representative Aircraft Name Role Phone Unavailable Primary Care Provider Unavailabl e Encounter Details Date Type Department Care Team (Late st Contact Info) Description 12/12/2011 Results Only [facility] Laboratory Services - [facility] ([facility]) [address] [place] [id number] Sharif Salcedo MD [address] [place] [address] Social History Tobacco Use Types Packs/Day Years Used Date Smoking Tobacco: Never Assessed Sex and Gender Information Value Date Recorded Sex Assigned at Not on file Gender Identity Not on file Sexual Orientation Not on file documented as of this encounter Plan of Treatment Not on file documented as of this encounter Procedures Procedure Name Priority Date/Time Associated Diagnosis Comments SURGICAL PATHOLOGY Routine 12/12/2011 0:00 EDT documented in this encounter Results * SURGICAL PATHOLOGY (12/12/2011 0:00 EDT) Pathology Report: SURGICAL PATHOLOGY REPORT Reports generated via electronic interface contain original data; however they are lacking the format of the original report. Caution should be taken when reading/interpreti ng unformatted reports. Name: ? CALI THOMPSON ? Accession #: ? [id number] ? : ? 1935 (Age: 76) ??M ? Collect Date: ? 12/12/2011 ? Location: ? [facility] ? Receive Date: ? 12/13/2011 ? Provider: SHARIF SALCEDO MD Copy to: ARELY VICKERS MD ? Final Pathologic Diagnosis: ? Colon, 35 cm, biopsy: - Cauterized colonic tissue, favor hyperplastic polyp. ??See comment. Comment: ? Deeper sections have been examined. ??(Dr. Bal)/[facility] Document reviewed and electronically signed by: EFRAÍN DEY [facility] Report ??Date: 12/17/2011 13:24 By the signature above, the attending physician certifies that he/she has personally conducted a gross and/or microscopic examination of the described specimens and rendered or confirmed the above diagnosis. Specimen(s) Received: ? Bx 35 cm Clinical History: ? Hx polyps Gross Description: ? Received in formalin labelled Cali Thompson and biopsy 35 cm is a single, 0.5 x 0.2 x 0.2 cm, pink-francisco, irregular soft tissue submitted in toto in a single cassette. ??(Tiffanie Prieto)/[facility] End of Report KAILASH SLAUGHTER 12/12/2011 12/13/2011 8:1 7 EDT Sharif Salcedo MD PATHOLOGY ORDERABLE S KAILASH SLAUGHTER [address] [place] [address] documented in this encounter Visit Diagnoses Not on filedocumented in this encounter
--- OUTSIDE RECORDS SUMMARY | 2023-12-21 07:51 | XMS_ITS | Encounter Summary ---
Author Organization [facility] Address [address] [place] [address] Care Team Providers Care Customer Account Executive Name Role Phone Rolando Moise MD Primary Care Provider [phone] Encounter Details Date Type Department Care Team (Late st Contact Info) Description 08/17/2021 Lab Requisition [facility] Pathology & Laboratory Medicine - [address] [id number] Outr Resulting Lab, Provider Social History Tobacco [...] Date/Time Associated Diagnosis Comments PTH INTACT Routine 08/16/2021 13:50 EDT documented in this encounter Results * (ABNORMAL) PTH INTACT (08/16/2021 13:50 EDT) Intact PTH 306(H) 19 - 88 pg/mL 08/20/2021 11:29 EDT [facility] Blood VENOUS BLOOD / Unknown 08/16/2021 13:50 EDT 08/17/2021 16:29 EDT Provider Outr Resulting Lab CHEMISTRY & BLOOD GAS ORDERABLES [facility] [address] [place] [address] documented in this encounter Visit Diagnoses Not on filedocumented in this encounter Care Teams Customer Account Executive Relationship Specialty Start Date End Date Rolando Moise MD [address] [place] [address] PCP - General 10/30/16 documented as of this encounter
--- OUTSIDE RECORDS SUMMARY | 2023-12-21 07:51 | XMS_ITS | Encounter Summary ---
Author Organization [facility] Address [address] [place] [address] Care Team Providers Care Bowling Teacher Name Role Phone Rolando Moise MD Primary Care Provider Encounter Details Date Type Department Care Team (Latest Contact Info) Description 07/19/2018 12:50 EDT - 07/19/2018 23:59 EDT Hospital Encounter [address] [address] Unknown, Provider, Discharge Disposition: Home or Self Care Social History Tobacco Use Types Packs/Day Years Used Date Smoking Tobacco: Never Assessed Sex and Gender Information Value Date Recorded Sex Assigned at Not on file Gender Identity Not on file Sexual Orientation Not on file documented as of this encounter Discharge Disposition Disposition Code Departure Means Destination Home or Self [facility]pc documented in this encounter Plan of Treatment Not on file documented as of this encounter Visit Diagnoses Not on filedocumented in this encounter Care Teams Bowling Teacher Relationship Specialty Start Date End Date Rolando Moise MD [facility] [place] [address] [address] [place] [address] PCP - General 10/30/16 documented as of this encounter
--- OUTSIDE RECORDS SUMMARY | 2023-12-21 07:51 | XMS_ITS | Encounter Summary ---
Author Organization [facility] Address [address] [place] [address] Care Team Providers Care Environmental Attorney Name Role Phone Rolando Moise MD Primary Care Provider [phone] Encounter Details Date Type Department Care Team (Late st Contact Info) Description 06/06/2020 Lab Requisition [facility] Pathology & Laboratory Medicine - [address] [address] Outr Resulting Lab, Provider Social [...] Date/Time Associated Diagnosis Comments PTH INTACT Routine 06/06/2020 10:30 EST documented in this encounter Results * (ABNORMAL) PTH INTACT (06/06/2020 10:30 EST) Intact PTH 105(H) 19 - 88 pg/mL 06/07/2020 8:52 EST [facility] Blood VENOUS BLOOD / Unknown 06/06/2020 10:30 EST 06/06/2020 19:30 EST Provider Outr Resulting Lab CHEMISTRY & BLOOD GAS ORDERABLES [facility] [address] [place] [address] documented in this encounter Visit Diagnoses Not on filedocumented in this encounter Care Teams Environmental Attorney Relationship Specialty Start Date End Date Rolando Moise MD [address] [place] [address] PCP - General 10/30/16 documented as of this encounter
--- OUTSIDE RECORDS SUMMARY | 2023-12-21 07:51 | XMS_ITS | Encounter Summary ---
Author Organization [facility] Address [address] [place] [address] Care Team Providers Care Vallez Filter Operator Name Role Phone Rolando Moise MD Primary Care Provider [phone] Encounter Details Date Type Department Care Team (Late st Contact Info) Description 04/24/2020 Lab Requisition [facility] Pathology & Laboratory Medicine - [facility] [address] [place] [address] Dana Quijano MD [address] [place] [phone] Encounter for other general examination Social History [...] Procedure Name Priority Date/Time Associated Diagnosis Comments ANATOMIC PATHOLOGY - DOWNTIME Today 03/01/2020 12:10 EDT Encounter for other general examination documented in this encounter Results * ANATOMIC PATHOLOGY - DOWNTIME (03/01/2020 12:10 EDT) Final Diagnosis See scanned downtime report. 04/24/2020 13:02 [facility] Attestation Report electronically released by Rubén Adair on 04/24/20 . 04/24/2020 13:02 [facility] Performing Lab [facility] 04/24/2020 13:02 EST [facility] Scanned Images 04/24/2020 13:02 EST [facility] Tissue ENTIRE APPENDIX / Unknown 03/01/2020 12:10 EDT 04/24/2020 13:00 EST Dana Quijano MD PATHOLOGY ORDERA CHILOS [facility] [address] [place] [address] documented in this encounter Visit Diagnoses Diagnosis Encounter for other general examination documented in this encounter Care Teams Vallez Filter Operator Relationship Specialty Start Date End Date Rolando Moise MD [address] [place] [address] PCP - General 10/30/16 documented as of this encounter
--- OUTSIDE RECORDS SUMMARY | 2023-12-21 07:51 | XMS_ITS | Encounter Summary ---
Author Organization [facility] Address [address] [place] [address] Care Team Providers Care Director Trust Name Role Phone Rolando Moise MD Primary Care Provider [phone] Encounter Details Date Type Department Care Team (Late st Contact Info) Description 10/06/2023 Lab Requisition [facility] Pathology & Laboratory Medicine - [address] [id number] Outr Resulting Lab, Provider Social History Tobacco [...] Date/Time Associated Diagnosis Comments LYME AB Routine 10/06/2023 0:04 EDT documented in this encounter Results * LYME AB (10/06/2023 0:04 EDT) Lyme Ab Negative Negative 10/07/2023 10:22 EDT [facility] Blood VENOUS BLOOD / Unknown 10/06/2023 0:04 EDT 10/06/2023 16:59 EDT Provider Outr Resulting Lab IMMUNOLOGY A ND SEROLOGY ORDERABLES [facility] [address] [place] [address] documented in this encounter Visit Diagnoses Not on filedocumented in this encounter Care Teams Director Trust Relationship Specialty Start Date End Date Rolando Moise MD [address] [place] [address] PCP - General 10/30/16 documented as of this encounter
--- OUTSIDE RECORDS SUMMARY | 2023-12-21 07:52 | XMS_ITS | Encounter Summary ---
Author Organization [facility] Address [facility] [place] [address] Care Team Providers Care Poultry Offal Icer Name Role Phone Rolando Moise MD Primary Care Provider [phone] Encounter Details Date Type Department Care Team (Late st Contact Info) Description 09/01/2023 Orders [place] [phone] Estela Jesus RN Infrarenal abdominal aortic aneurysm (AAA) without rupture Social History Tobacco Use Types Packs/Day Years Used Date Smoking Tobacco: Former Pipe Q uit: 02/07/2017 Smokeless Tobacco: Never Alcohol Use Standard Drinks/Week Comments No 0 (1 standard drink = 0.6 oz pur e alcohol) Sex and Gender Information Value Date Recorded Sex Assigned at Not on file Gender Identity Not on file Sexual Orientation Not on file documented as of this encounter Plan of Treatment Upcoming Encounters Date Type Department Care Team (Latest Contact Info) Description 01/02/2024 1:30 PM EDT Laboratory Appointment Lab [address] [place] [phone] 01/02/2024 3:00 PM EDT Office Visit [place] [address] Adam Costa MD [facility] [place] [address] Scheduled Orders Name Type Priority Associated Diagnoses Orde r Schedule Creatinine Lab STAT Infrarenal abdominal aortic aneurysm (AAA) without rupture Expected: 09/01/2023, Expires: 08/31/2024 documented as of this encounter Visit Diagnoses Diagnosis Infrarenal abdominal aortic aneurysm (AAA) without rupture documented in this encounter Care Teams Poultry Offal Icer Relationship Specialty Start Date End Date Rolando Moise MD [address] [place] [address] PCP - General Family Medicine 09/16/16 documented as of this encounter
--- OUTSIDE RECORDS SUMMARY | 2023-12-21 07:52 | XMS_ITS | Encounter Summary ---
Author Organization [facility] Address [facility] [place] [address] Care Team Providers Care Container Finisher Name Role Phone Rolando Moise MD Primary Care Provider [phone] Encounter Details Date Type Department Care Team (Late st Contact Info) Description 11/07/2020 Telephone Cardiology at [address] [address] Luis Villalobos MD [facility] [place] [address] Social History Tobacco Use Types Packs/Day Years Used Date Smoking Tobacco: Former Pipe Q uit: 02/07/2017 Smokeless Tobacco: Never Alcohol Use Standard Drinks/Week Comments No 0 (1 standard drink = 0.6 oz pur e alcohol) Sex and Gender Information Value Date Recorded Sex Assigned at Not on file Gender Identity Not on file Sexual Orientation Not on file documented as of this encounter Miscellaneous Notes * Telephone Encounter - Luis Villalobos MD - 11/07/2020 4:10 AM EDT Cardiology Triage Note History of Present Illness Cesar Thompson is a 84 y.o. male with a history of CAD c/b NSTEMI s/p MINNIE to mLAD and oDiag1 (02/2017), ICM (LV EF 35% after GA to 60% 09/2017), AAA s/p endovascular repair (04/2011) who presented to [facility] with chest pain. The day prior to ED visit, he developed acute onset of chest pain described as a pressure as well as sharp sensation. It is located substernally and radiated to back and between scapula and goes through the neck. It is particularly worse on breathing and deep inspiration. He denies nausea, emesis, diaphoresis, lightheadedness, syncope. It was not worse on exertion of relieved with rest. The pressure was constant throughout the day and kept him awake through the night so he went to the ED. ECG showed sinus tachycardia and subtle lateral ST depressions. He was hypertensive to 172/112. Creatine was 2.4 (unknown baseline, no recent Cr). He could not undergo CT imaging with contrast due to reduced kidney function. He went CT C+A=P without contrast that could not identify major aortic abnormality, but has significant califications in coronary arteries and aorta. Blood pressure on both arms fairly equal. VS: 36.5 145 19 172/112 97 R/a Troponin: 0.08 (ULN ) ECG: Sinus tachycardia at 142 bpm. Q waves II, III, aVF. Subtle ST depressions in V4-V6, I, aVL. Cr 2.4 GFR 25 ProBNP 522 Assessment & Recommendations Symptoms concerning for aortic dissection vs PE vs NSTEMI. Dissection is the most concerning with tearing pain radiating to back and patient is hypertensive and tachycardic. Unfortunately contrast imaging was not able to be performed due to GFR <30. PE is a possibility as well, however no significant RV dilation noted on CT imaging. NSTEMI is possible though description of symptoms is a bit atypical, ECG has subtle lateral depressions and could be rate induced. - send D-Dimer, if <500, then can rule out PE and dissection and give aspirin load, plavix load,and heparin gtt, and nitro gtt for NSTEMI - if D-Dimer >500, then only start nitro gtt and will transfer to [facility]U for either VENICE or MRI to better evaluate aorta as well as TTE and V/Q scan for PE if dissection ruled out - reduce patient BP to goal SBP <130 mmHg and Hr <70 bpm - start metoprolol tartrate 12.5 q6h - give atorvastatin 80 mg The above recommendations are based on my conversation with the referring provider. I have not personally interviewed or examined this patient. Luis Villalobos MD Supervisor Veneer documented in this encounter Plan of Treatment Upcoming Encounters Date Type Department Care Team (Latest Contact Info) Description 01/02/2024 1:30 PM EDT Laboratory Appointment Lab [address] [place] [address] 01/02/2024 3:00 PM EDT Office Visit Ne[place] [phone] Adam Costa MD [facility] [place] [address] documented as of this encounter Visit Diagnoses Not on filedocumented in this encounter Care Teams Container Finisher Relationship Specialty Start Date End Date Rolando Moise MD [address] [place] [address] PCP - General Family Medicine 09/16/16 documented as of this encounter
--- OUTSIDE RECORDS SUMMARY | 2023-12-21 07:52 | XMS_ITS | Encounter Summary ---
Author Organization [facility] [place] [address] Care Team Providers Care Automotive Service Cashier Name Role Phone Rolando Moise MD Primary Care Provider [phone] Reason for Referral * Consultation (Routine) - Closed Specialty Diagnoses / Procedures Referred By Contac t Referred To Contact Vascular Surgery Diagnoses Abdominal aortic aneurysm (AAA) without rupture, unspecified part ROUTINE, ELPIDIO/, CT AAA Rolando Moise MD [address] [place] [address] [facility] Vascular Surg [address] [place] [address] Referral ID Status Reason Start Date Expiration Date V isits Requested Visits Authorized [id number] Closed Consult, Test & Treat PCP Updated and/or Approved 06/13/2023 06/12/2024 1 1 Encounter Details Date Type Department Care Team (Latest Contact Info) Description 06/13/2023 Transcribe Orders eDH Incoming Referrals [phone] Rolando Moise MD [address] [place] [address] Abdominal aortic aneurysm (AAA) without rupture, unspecified part (Primary Dx) Social History Tobacco Use Types Packs/Day Years [...] 1:30 PM EDT Laboratory Appointment Lab [address] [place] [address] 01/02/2024 3:00 PM EDT Office Visit [place] [address] Adam Costa MD [facility] [place] [address] Scheduled Referrals Name Type Priority Associated Diagnoses Orde r Schedule Referral to Vascular Surgery Outpatient Referral Urgent Abdominal aortic aneurysm (AAA) without rupture, unspecified part Ordered: 06/13/2023 documented as of this encounter Visit Diagnoses Diagnosis Abdominal aortic aneurysm (AAA) without rupture, unspecified part- Primary documented in this encounter Care Teams Automotive Service Cashier Relationship Specialty Start Date End Date Rolando Moise MD [address] [place] [address] PCP - General Family Medicine 09/16/16 documented as of this encounter
--- OUTSIDE RECORDS SUMMARY | 2023-12-21 07:52 | XMS_ITS | Encounter Summary ---
Author Organization [facility] Address [facility] [place] [address] Care Team Providers Care Plywood Matcher Name Role Phone Rolando Moise MD Primary Care Provider [phone] Reason for Visit * Reason Comments Skin Check * Consultation (Routine) - Closed Specialty Diagnoses / Procedures Referred By Contrachid t Referred To Contact Dermatology Diagnoses Transient acantholytic dermatosis (juan diego) Rolando Moise MD [address] [place] [address] [place] [address] Askhan Eason MD [address] [place] [address], [facility] [place] [address] Referral ID Status Reason Start Date Expiration Date V isits Requested Visits Authorized [id number] Closed Consult, Test & Treat 06/13/2022 06/13/2023 1 1 Encounter Details Date Type Department Care Team (Late st Contact Info) Description 07/18/2022 11:00 AM EDT Office Visit Dermatology at [address] [address] Ashkan Eason MD [address] [place] [address], [facility] [place] [address] Pruritus; Xerosis cutis Social History Tobacco Use Types Packs/Day Years Used Date Smoking Tobacco: Former Pipe Q uit: 02/07/2017 Smokeless Tobacco: Never Alcohol Use Standard Drinks/Week Comments No 0 (1 standard drink = 0.6 oz pur e alcohol) Sex and Gender Information Value Date Recorded Sex Assigned at Not on file Gender Identity Not on file Sexual Orientation Not on file documented as of this encounter Progress Notes * Ashkan Eason MD - 07/18/2022 11:00 AM EDT Problem: New patient initial visit, itchy rash Cesar presents for an itchy rash on the left temporal scalp. He also has some itching on his legs. He is accompanied by his caregiver Montse. Physical examination reveals a pleasant 86-year-old gentleman who complains about itching and burning in his scalp. When watching TV he often rests his hand against his left scalp and plans to use burning to the hair and picking and his touching skin. The areas tend to burn as well as be itchy. Complains of swelling and some dryness of his legs, which had to be then itchy and waking up from sleepat night.. He says both problem areas have been present for 1 to 2 years. They have tried using head and shoulder shampoo, Selsun Blue and baby shampoo without benefit. Physical examination reveals diffuse xerosis cutis with some eczema craquele on both lower extremities particularly the shins. He has 1-2+ pitting edema both lower extremities. He has on examination of the scalp really no primary dermatologic findings. There are no papules excoriations or evidence of acne excoriae at the present time the scalp is unremarkable as well. Assessment plan: Pruritus left upper scalp and shins/calves of legs 1. Begin use of CeraVe cream on a daily basis to the legs. Obtain osso-scl-fqflclg 2. Begin wearing Tubigrip stockings during the daytime taking off at night to help reduce his lowerextremity edema. Pruritus, catholic scalp 1. No primary neurologic findings 2. Suspect acne excoriae with manipulation absentmindedly by the patient with his left hand while watching TV 3. The patient to begin use of selenium sulfide 2% lotion use every other day, rinse lather out after 2 to 3 minutes. Dispense 120 mL with 5 refills. 4. Begin also ketoconazole 2% shampoo alternating every 2 weeks with the other shampoo, also using on a q. oh day basis. Dispense 120 mL with 5 refills 5. Begin fluocinolone 0.01% solution apply nightly to symptomatic in left temporal scalp.. [id number] mL with 5 refills 6. Return to clinic in another month for repeat check. Prescriptions will be sent to the [facility]. CC: Rolando Moise MD documented in this encounter Plan of Treatment Upcoming Encounters Date Type Department Care Team (Latest Contact Info) Description 01/02/2024 1:30 PM EDT Laboratory Appointment Lab [address] [place] [address] 01/02/2024 3:00 PM EDT Office Visit [place] [address] Adam Costa MD [facility] [place] [address] documented as of this encounter Visit Diagnoses Diagnosis Pruritus Unspecified pruritic disorder Xerosis cutis Other specified disease of sebaceous glands documented in this encounter Care Teams Plywood Matcher Relationship Specialty Start Date End Date Rolando Moise MD [address] [place] [address] PCP - General Family Medicine 09/16/16 documented as of this encounter
--- OUTSIDE RECORDS SUMMARY | 2023-12-21 07:52 | XMS_ITS | Encounter Summary ---
Author Organization [facility] [place] [address] Care Team Providers Care Health Teacher Name Role Phone Rolando Moise MD Primary Care Provider [phone] Encounter Details Date Type Department Care Team (Late st Contact Info) Description 07/25/2023 Telephone [place] [address] Migue Ahn Social History Tobacco Use Types Packs/Day Years [...] encounter Miscellaneous Notes * Telephone Encounter - Migue Ahn - 07/25/2023 8:40 AM EDT LVM to reschedule CT and new patient appointment with Dr. Head on 09/02 documented in this encounter Plan of Treatment Upcoming Encounters Date Type Department Care Team (Latest Contact Info) Description 01/02/2024 1:30 PM EDT Laboratory Appointment Lab [address] [place] [phone] 01/02/2024 3:00 PM EDT Office Visit Nephrology [place] [address] Adam Costa MD [facility] [place] [address] documented as of this encounter Visit Diagnoses Not on filedocumented in this encounter Care Teams Health Teacher Relationship Specialty Start Date End Date Rolando Moise MD [address] [place] [address] [place] [address] PCP - General Family Medicine 09/16/16 documented as of this encounter
--- OUTSIDE RECORDS SUMMARY | 2023-12-21 07:52 | XMS_ITS | Encounter Summary ---
Author Organization [facility] [place] [address] Care Team Providers Care Cooler Tender Name Role Phone Rolando Moise MD Primary Care Provider [phone] Encounter Details Date Type Department Care Team (Late st Contact Info) Description 07/18/2018 11:05 AM EDT Ancillary Procedure [place] [phone] Lisa Alan MD [facility] [place] [address] Social History Tobacco Use Types Packs/Day Years [...] 1:30 PM EDT Laboratory Appointment Lab [address] [place] [phone] 01/02/2024 3:00 PM EDT Office Visit Ne[place]rology [place] [phone] dAam Costa MD [facility] NEPHROLOGY [place], [place] [id number] documented as of this encounter Procedures Procedure Name Priority Date/Time Associated Diagnosis Comments FILM LIBRARY STORAGE ONLY CT ABDOMEN AND PELVIS Routine 07/18/2018 11:01 AM EDT documented in this encounter Results * Film Library- Storage Only CT Abdomen & Pelvis (07/18/2018 11:01 AM EDT) Narrative [facility] - 07/18/2018 11:01 AM EDT This exam is auto-finalizing. It's purpose is for storage only. Lisa Infante MD IMTerrence FILM LIBRARY ORDERABLES Performing Organization Address City/State/[facility] Co de Phone Number [place], [place] documented in this encounter Visit Diagnoses Not on filedocumented in this encounter Care Teams Cooler Tender Relationship Specialty Start Date End Date Rolando Moise MD [address] [place] [address] PCP - General Family Medicine 09/16/16 documented as of this encounter
--- OUTSIDE RECORDS SUMMARY | 2023-12-21 07:52 | XMS_ITS | Encounter Summary ---
Author Organization [facility] Address [facility] [place] [address] Care Team Providers Care Hat Model Name Role Phone Rolando Moise MD Primary Care Provider [phone] Encounter Details Date Type Department Care Team (Late st Contact Info) Description 11/07/2020 External [place] [address] Social History Tobacco Use Types Packs/Day Years [...] 01/02/2024 1:30 PM EDT Laboratory Appointment Lab [address] [phone] 01/02/2024 3:00 PM EDT Office Visit [place] [address] Adam Costa MD [facility] [place] [address] documented as of this encounter Procedures Procedure Name Priority Date/Time Associated Diagnosis Comments ECG SCAN Routine 11/07/2020 documented in this encounter Results * Scan Doc: ECG (11/07/2020) Historical Provider MD MEDIA MGR SCAN EX T ORDR/RSLT documented in this encounter Visit Diagnoses Not on filedocumented in this encounter Care Teams Hat Model Relationship Specialty Start Date End Date Rolando Moise MD [address] [place] [address] PCP - General Family Medicine 09/16/16 documented as of this encounter
--- OUTSIDE RECORDS SUMMARY | 2023-12-21 07:52 | XMS_ITS | Encounter Summary ---
Author Organization [facility] Address [facility] [place] [address] Care Team Providers Care Tensile Tester Name Role Phone Rolando Moise MD Primary Care Provider [phone] Reason for Visit * Reason Onset Date Comments Other 11/10/2020 Encounter Details Date Type Department Care Team (Late st Contact Info) Description 11/10/2020 Telephone Cardiology at [address] [phone] Antonia Martin, RN Other Social History Tobacco Use Types Packs/Day Years [...] encounter Miscellaneous Notes * Telephone Encounter - Antonia Martin RN - 11/10/2020 1:14 PM EDT Call from Mercedes SANDERS from [facility] [phone],questions regarding [facility] discharge (yesterday 11/09/20) medications. Return call to Mercedes,voice message left directing her to contact [facility] -contact # given. trading manager while inpatient Penny Bee RN. documented in this encounter Plan of Treatment Upcoming Encounters Date Type Department Care Team (Latest Contact Info) Description 01/02/2024 1:30 PM EDT Laboratory Appointment Lab [address] [place] [address] 01/02/2024 3:00 PM EDT Office Visit [place] [address] Adam Costa MD [facility] [place] [address] documented as of this encounter Visit Diagnoses Not on filedocumented in this encounter Care Teams Tensile Tester Relationship Specialty Start Date End Date Rolando Moise MD [address] [place] [address] [place] [address] PCP - General Family Medicine 09/16/16 documented as of this encounter
--- OUTSIDE RECORDS SUMMARY | 2023-12-21 07:52 | XMS_ITS | Encounter Summary ---
Author Organization [facility] Address [facility] [place] [address] Care Team Providers Care Donor Center Technician Name Role Phone Rolando Moise MD Primary Care Provider [phone] Reason for Referral * Diagnostic Test (Routine) - Closed Specialty Diagnoses / Procedures Referred By Teodoro robertson Referred To Contact Cardiology Diagnoses Cardiomyopathy, ischemic Procedures Echocardiogram Transthoracic(Leb) Muriel Manning MD [facility] [place] [address] [facility] [place] [address] Referral ID Status Reason Start Date Expiration Date V isits Requested Visits Authorized [id number] Closed Specialty Service Requested 05/27/2017 05/27/2018 1 1 Reason for Visit * Diagnostic Test (Routine) - Closed Specialty Diagnoses / Procedures Referred By Teodoro robertson Referred To Contact Cardiology Diagnoses Cardiomyopathy, ischemic Procedures Echocardiogram Transthoracic(Leb) Muriel Manning MD [facility] [place] [address] [facility] [place] [address] Referral ID Status Reason Start Date Expiration Date V isits Requested Visits Authorized [id number] Closed Specialty Service Requested 05/27/2017 05/27/2018 1 1 Encounter Details Date Type Department Care Team (Latest Contact Info) Description 09/22/2017 12:50 PM EDT - 09/22/2017 11:59 PM EDT Hospital Encounter Non-Invasive [place] [address] Muriel Manning MD [facility] [place] [address] Cardiomyopathy, ischemic Discharge Disposition: Home Social History Tobacco Use Types Packs/Day Years Used Date Smoking Tobacco: Former Pipe Q uit: 02/07/2017 Smokeless Tobacco: Never Alcohol Use Standard Drinks/Week Comments No 0 (1 standard drink = 0.6 oz pur e alcohol) Sex and Gender Information Value Date Recorded Sex Assigned at Not on file Gender Identity Not on file Sexual Orientation Not on file documented as of this encounter Medications at Time of Discharge Medication Sig Dispensed Refills Start Date End Date nitroGLYcerin (NITROSTAT) 0.4 mg Tablet, Sublingual Place 1 tablet under the tongue every 5 minutes as needed for Chest pain. 25 tablet 1 02/05/2017 tamsulosin (FLOMAX) 0.4 mg Capsule, Sust. Release 24 hr Take 0.4 mg by mouth daily. atorvastatin (LIPITOR) 20 mg Tablet Take 20 mg by mouth daily. 11/09/2020 meTOPROLOL succinate (TOPROL-XL) 100 mg Tablet Sustained Release 24 hr Take 1 tablet by mouth daily. 90 tablet 3 03/10/2017 11/09/2020 clopidogrel (PLAVIX) 75 mg Tablet Take 1 tablet by mouth daily. 90 tablet 3 02/06/2017 11/09/2020 aspirin 81 mg Tablet, Delayed Release (E.C.) Take 81 mg by mouth daily. 11/09/2020 lisinopril (PRINIVIL;ZESTRIL) 20 mg Tablet Take 20 mg by mouth daily. 11/09/2020 metFORMIN (GLUCOPHAGE) 500 mg tablet Take 500 mg by mouth 2 times daily (with meals). 11/09/2020 documented as of this encounter Plan of Treatment Upcoming Encounters Date Type Department Care Team (Latest Contact Info) Description 01/02/2024 1:30 PM EDT Laboratory Appointment Lab [address] [place] [address] 01/02/2024 3:00 PM EDT Office Visit Ne[place] [address] Adam Costa MD [facility] [address] documented as of this encounter Procedures Procedure Name Priority Date/Time Associated Diagnosis Comments ECHO COMPLETE Routine 09/22/2017 2:33 PM EDT Cardiomyopathy, ischemic documented in this encounter Results * ECHO COMPLETE (09/22/2017 2:33 PM EDT) EF 60 HEARTLAB SYSTEM Anatomical Region Laterality Modality Other 09/22/2017 Narrative 09/22/2017 2:40 PM EDT Procedure: ?Transthoracic Echocardiogram Patient: ?EDD Hatch ?(Age): 1935(81y) Med Rec#: ? [id number] ?Sex: ?M ? Site Loc: ? [facility] ?Ht / Wt: ??178(cm)/88(kg) Pt. Loc: ?Echo Lab ?BSA: ?2.06 Study Date: ?? 09/22/2017 ?Pt. Type: Outpatient Tape: ? Referring: MURIEL MANNING T Reading: Bayron Oliva ([id number]) Inspecting And Testing Lead Hand: Taisha Davidson Diagnosis: *ICD-10-PCS Ischemic cardiomyopathy (I25.5) BP: ? 164/83 SUMMARY: 1. There is mild septal hypertrophy of the left ventricle. ?? There is normal global left ventricular systolic function. ??The quantitative left ventricular ejection fraction by biplane Dowd's method is 60%. There are no left ventricular segmental wall motion abnormalities. 2. The right ventricle is normal in size. Right ventricular global systolic function is normal. 3. There is no hemodynamically significant valve disease. 4. See remainder of report for additional findings. Findings ? : Left Ventricle: ? The left ventricular chamber size is normal. ?There is mild septal hypertrophy of the left ventricle. ?There is no evidence of LVOT obstruction. ?No ventricular septal defect is visualized. ?There is normal global left ventricular systolic function. ?The quantitative left ventricular ejection fraction by biplane Dowd's method is 60%. ?There are no left ventricular segmental wall motion abnormalities. ?Doppler assessment is consistent with normal left sided filling pressure. Left Atrium: ? The left atrium is normal in size. Right Ventricle: ? The right ventricle is normal in size. ?Right ventricular global systolic function is normal. ?Pulmonary artery hypertension could not be assessed due to inadequate tricuspid regurgitation jet. Right Atrium: ? The right atrium appears normal. Aortic Valve: ? The aortic valve is tricuspid. ?Systolic excursion of the aortic valve is normal. ?There is no evidence of aortic valve stenosis. ?There is no evidence of aortic regurgitation. Mitral Valve: ? The mitral valve leaflets appear normal. ?There is no evidence of mitral stenosis. ?There is trace mitral regurgitation present. Tricuspid Valve: ? The tricuspid valve leaflets are morphologically normal. ?There is trace tricuspid regurgitation present. Pulmonic Valve: ? The pulmonic valve appears normal in structure and function. Pericardium: ? The pericardium appears normal and there is no evidence of a pericardial effusion. Aorta: ? There is mild dilatation of the aortic root. ?There is moderate dilatation of the ascending aorta. Pulmonary Artery: ? The main pulmonary artery appears normal. Venous: ? The inferior vena cava appears normal in size. ?There is a greater than 50% respiratory change in the inferior vena cava dimension. Misc: ? There is no hemodynamically significant valve disease. ?See remainder of report for additional findings. ?Two-dimensional echo, spectral Doppler and color Doppler performed. Chambers 2D ?Value ?Units (Range) ? IVSd (2D) ? 1.4 ?cm ? LVPWd (2D) ?1.1 ?cm ? IVS:LVPW ratio (2D) 1.3 ?ratio ? RWT (2D) ?0.6 ?ratio ? RWT PW (2D) ? 0.5 ?ratio ? LVIDd (2D) ?4.6 ?cm ? LVIDs (2D) ?3.8 ?cm ? LVIDd (2D) index ?2.2 ?cm/m2 ? LVIDs (2D) index ?1.8 ?cm/m2 ? LV FS (2D) ?18 ? % ? EF Teichholz (2D) ?? 37 ? % ? Ao root diameter (2D4 ?cm (2.1 - 3.6) ? Ascending Ao ?4.2 ?cm (2 - 3.5) ? Volumes/Mass ?Value ?Units (Range) ? LA Area 4 CH ?20.7 ? cm2 (<21) ? RA AREA 4CH ? 15.4 ? cm2 ? LA ESV BP (MOD) inde26.2 ? ml/m2 ? LV ESV SP 4CH (MOD) 50.7 ? ml ? LV ESV SP 2CH (MOD) 38.6 ? ml ? LV EDV BP ? 116 ?ml ? LV ESV BP ? 46.2 ? ml ? LV EDV BP index ? 56.3 ? ml/m2 ? LV ESV BP index ? 22.4 ? ml/m2 ? BP EF (MOD) ? 60 ? % ? LV mass (2D) ?222.2 ?g ? LV mass (2D) index ??107.9 ?g/m2 ? Diastolic/Systolic Function ?Value ?Units (Range) ? MV E-wave Vmax ?0.7 ?m/sec ? MV deceleration [id number] ?msec ? MV A-wave Vmax ?1.3 ?m/sec ? MV E:A ratio ?0.6 ?ratio ? LV septal e' Vmax ?? 0.1 ?m/sec ? LV lateral e' Vmax ??0.1 ?m/sec ? LV average e' Vmax ??0.1 ?m/sec ? LV E:e' septal ratio14.4 ? ratio ? LV E:e' lateral rati12 ? ratio ? LV average E:e' rati12 ? ratio ? Wall Motion: Segment Name ?Rest ? Base-Anteroseptal ?? Normal ? Base-Anterior ? Normal ? Base-Anterolateral ??Normal ? Base-Posterolateral Normal ? Base-Inferior ? Normal ? Base-Inferoseptal ?? Normal ? Mid-Anteroseptal ?Normal ? Mid-Anterior ?Normal ? Mid-Anterolateral ?? Normal ? Mid-Posterolateral ??Normal ? Mid-Inferior ?Normal ? Mid-Inferoseptal ?Normal ? [place]-Septal ? Normal ? [place]-Anterior ? Normal ? [place]-Lateral ?Normal ? [place]-Inferior ? Normal ? [place]-Tip ?Normal ? This report has been electronically signed by: Bayron Oliva M.D. ? 09/22/2017 14:40:07 Images reviewed and interpretation verified [facility] Cardiac Ultrasound Laboratory Procedure Note Bayron Oliva MD - 09/22/2017 Procedure: Transthoracic Echocardiogram Patient: EDD COUCH(Age): 1935(81y) Med Rec#: [id number] Sex: M Site Loc: [facility] Ht / Wt: 178(cm)/88(kg) Pt. Loc: Echo Lab BSA: 2.06 Study Date: 09/22/2017 Pt. Type: Outpatient Tape: Referring: MURIEL MANNING T Reading: Bayron Oliva ([id number]) Inspecting And Testing Lead Hand: Taisha Davidson Diagnosis: *ICD-10-PCS Ischemic cardiomyopathy (I25.5) BP: 164/83 SUMMARY: 1. There is mild septal hypertrophy of the left ventricle. There is normal global left ventricular systolic function. The quantitative left ventricular ejection fraction by biplane Dowd's method is 60%. There are no left ventricular segmental wall motion abnormalities. 2. The right ventricle is normal in size. Right ventricular global systolic function is normal. 3. There is no hemodynamically significant valve disease. 4. See remainder of report for additional findings. Findings : Left Ventricle: The left ventricular chamber size is normal. There is mild septal hypertrophy of the left ventricle. There is no evidence of LVOT obstruction. No ventricular septal defect is visualized. There is normal global left ventricular systolic function. The quantitative left ventricular ejection fraction by biplane Dowd's method is 60%. There are no left ventricular segmental wall motion abnormalities. Doppler assessment is consistent with normal left sided filling pressure. Left Atrium: The left atrium is normal in size. Right Ventricle: The right ventricle is normal in size. Right ventricular global systolic function is normal. Pulmonary artery hypertension could not be assessed due to inadequate tricuspid regurgitation jet. Right Atrium: The right atrium appears normal. Aortic Valve: The aortic valve is tricuspid. Systolic excursion of the aortic valve is normal. There is no evidence of aortic valve stenosis. There is no evidence of aortic regurgitation. Mitral Valve: The mitral valve leaflets appear normal. There is no evidence of mitral stenosis. There is trace mitral regurgitation present. Tricuspid Valve: The tricuspid valve leaflets are morphologically normal. There is trace tricuspid regurgitation present. Pulmonic Valve: The pulmonic valve appears normal in structure and function. Pericardium: The pericardium appears normal and there is no evidence of a pericardial effusion. Aorta: There is mild dilatation of the aortic root. There is moderate dilatation of the ascending aorta. Pulmonary Artery: The main pulmonary artery appears normal. Venous: The inferior vena cava appears normal in size. There is a greater than 50% respiratory change in the inferior vena cava dimension. Misc: There is no hemodynamically significant valve disease. See remainder of report for additional findings. Two-dimensional echo, spectral Doppler and color Doppler performed. Chambers 2D Value Units (Range) IVSd (2D) 1.4 cm LVPWd (2D) 1.1 cm IVS:LVPW ratio (2D) 1.3 ratio RWT (2D) 0.6 ratio RWT PW (2D) 0.5 ratio LVIDd (2D) 4.6 cm LVIDs (2D) 3.8 cm LVIDd (2D) index 2.2 cm/m2 LVIDs (2D) index 1.8 cm/m2 LV FS (2D) 18 % EF Teichholz (2D) 37 % Ao root diameter (2D4 cm (2.1 - 3.6) Ascending Ao 4.2 cm (2 - 3.5) Volumes/Mass Value Units (Range) LA Area 4 CH 20.7 cm2 (<21) RA AREA 4CH 15.4 cm2 LA ESV BP (MOD) inde26.2 ml/m2 LV ESV SP 4CH (MOD) 50.7 ml LV ESV SP 2CH (MOD) 38.6 ml LV EDV BP 116 ml LV ESV BP 46.2 ml LV EDV BP index 56.3 ml/m2 LV ESV BP index 22.4 ml/m2 BP EF (MOD) 60 % LV mass (2D) 222.2 g LV mass (2D) index 107.9 g/m2 Diastolic/Systolic Function Value Units (Range) MV E-wave Vmax 0.7 m/sec MV deceleration [id number] msec MV A-wave Vmax 1.3 m/sec MV E:A ratio 0.6 ratio LV septal e' Vmax 0.1 m/sec LV lateral e' Vmax 0.1 m/sec LV average e' Vmax 0.1 m/sec LV E:e' septal ratio14.4 ratio LV E:e' lateral rati12 ratio LV average E:e' rati12 ratio Wall Motion: Segment Name Rest Base-Anteroseptal Normal Base-Anterior Normal Base-Anterolateral Normal Base-Posterolateral Normal Base-Inferior Normal Base-Inferoseptal Normal Mid-Anteroseptal Normal Mid-Anterior Normal Mid-Anterolateral Normal Mid-Posterolateral Normal Mid-Inferior Normal Mid-Inferoseptal Normal [place]-Septal Normal [place]-Anterior Normal [place]-Lateral Normal [place]-Inferior Normal [place]-Tip Normal This report has been electronically signed by: Bayron Oliva M.D. 09/22/2017 14:40:07 Images reviewed and interpretation verified [facility] Cardiac Ultrasound Laboratory Muriel Manning MD ECHO ORDERABLES documented in this encounter Visit Diagnoses Diagnosis Cardiomyopathy, ischemic Other specified forms of chronic ischemic heart disease documented in this encounter Care Teams Donor Center Technician Relationship Specialty Start Date End Date Rolando Moise MD [address] [place] [address] PCP - General Family Medicine 09/16/16 documented as of this encounter
--- OUTSIDE RECORDS SUMMARY | 2023-12-21 07:52 | XMS_ITS | Encounter Summary ---
Author Organization [facility] Address [facility] [place] [address] Care Team Providers Care Loading Machine Tool Setter Name Role Phone Rolando Moise MD Primary Care Provider [phone] Reason for Visit * Reason Comments Follow-up Encounter Details Date Type Department Care Team (Late st Contact Info) Description 03/10/2017 2:00 PM EST Office Visit Cardiology at [address] [address] Shoshana Moyer APRN [facility] [place] [address] Coronary artery disease, angina presence unspecified, unspecified vessel or lesion type, unspecified whether modoc or transplanted heart Social History Tobacco Use Types Packs/Day Years Used Date Smoking Tobacco: Former Pipe Q uit: 02/07/2017 Smokeless Tobacco: Never Alcohol Use Standard Drinks/Week Comments No 0 (1 standard drink = 0.6 oz pur e alcohol) Sex and Gender Information Value Date Recorded Sex Assigned at Not on file Gender Identity Not on file Sexual Orientation Not on file documented as of this encounter Last Filed Vital Signs Vital Sign Reading Time Taken Comments Blood Pressure 142/80 03/10/2017 1:50 PM EST Pulse 70 03/10/2017 1:50 PM EST Temperature - - Respiratory Rate - - Oxygen Saturation 96% 03/10/2017 1:50 PM EST Inhaled Oxygen Concentration - - Weight 88.5 kg (195 lb) 03/10/2017 1:50 PM EST Height 177.8 cm (5' 10) 03/10/2017 1:50 PM EST Body Mass Index 27.98 03/10/2017 1:50 PM EST documented in this encounter Patient Instructions * Patient Instructions* Shoshana Gaspar APRN - 03/10/2017 2:00 PM EST Restart Toprol XL 100 mg, one tab once a day Check your weight every day and write it down each day in a notebook--bring this weight journal to your next appointment Limit salt intake, no added salt to meals, avoid high salt foods like processed meats, canned foods, microwaved foods Plan for a repeat echocardiogram in May with a follow visit with Shoshaan Moyer or Dr. Saenz documented in this encounter Progress Notes * Shoshana Gaspar APRN - 03/10/2017 2:00 PM EST Images from the original note were not included. [facility] [place] [place] [address] [address] General Cardiology Follow Up Subjective: Patient ID: Cesar Thompson is a 81 y.o. male. CC: Follow up of recent hospitalization for NSTEMI HPI: 81 y.o. male with past medical history significant for CAD, HTN, AAA, hyperlipidemia, former smoker and NIDDM who was recently hospitalized for a NSTEMI and had PCI of the mid LAD and angioplastly of ostial D1. On echocardiogram his ejection fraction was estimated at 35 % and there was some notation of a possible LV thrombus though this was felt to not be present after further review. Since discharge he has been doing well and returned to work. He was able to quit smoking completely, whichhas been tough, but successful. He decided not to participate in cardiac rehab. He also states he was told to stop his metoprolol shortly after his hospitalization, but isn't sure who told him. He denies any chest pain, shortness of breath, palpitations, near-syncope, or syncopal events. Patient Active Problem List Diagnosis ??? NSTEMI (non-ST elevated myocardial infarction) ??? HTN (hypertension) Overview Note: ??? Diabetes mellitus type 2, noninsulin dependent Overview Note: ??? AAA (abdominal aortic aneurysm) Overview Note: 04/12/11 s/p endograft repair of AAA ??? S/P hernia repair Overview Note: umbilical ROS: Constitutional: - fatigue, - fever, - chills Respiratory: - shortness of breath, - cough, - apnea, - wheezing Cardiovascular: - chest pain, - palpitations, - unusual rates Gastrointestinal: - nausea, - vomiting, - abdominal pain, - diarrhea Neurological: - lightheadedness, - dizziness, - syncope, - weakness Psychiatric: - anxious Medications: Current Outpatient Prescriptions Medication Sig Dispense Refill ??? atorvastatin (LIPITOR) 20 mg Tablet Take 20 mg by mouth daily. ??? clopidogrel (PLAVIX) 75 mg Tablet Take 1 tablet by mouth daily. 90 tablet 3 ??? nitroGLYcerin (NITROSTAT) 0.4 mg Tablet, Sublingual Place 1 tablet under the tongue every 5 minutes as needed for Chest pain. 25 tablet 1 ??? aspirin 81 mg Tablet, Delayed Release (E.C.) Take 81 mg by mouth daily. ??? lisinopril (PRINIVIL;ZESTRIL) 20 mg Tablet Take 20 mg by mouth daily. ??? tamsulosin (FLOMAX) 0.4 mg Capsule, Sust. Release 24 hr Take 0.4 mg by mouth daily. ??? metFORMIN (GLUCOPHAGE) 500 mg tablet Take 500 mg by mouth 2 times daily (with meals). ??? meTOPROLOL succinate (TOPROL-XL) 100 mg Tablet Sustained Release 24 hr Take 1 tablet by mouth daily. 90 tablet 3 Objective: Vitals: Vitals: 03/10/17 1350 BP: 142/80 BP Location (NBP): Left arm Patient Position: Sitting BP Cuff Sizes: Adult (25-34 cm) Pulse: 70 SpO2: 96% Weight: 88.5 kg (195 lb) Height: 177.8 cm (5' 10) Physical Exam: General- No acute distress, sitting comfortably in exam room chair HEENT- Head atraumatic, normocephalic Skin- Warm, dry, and intact Neck- No JVD noted Cardiovascular- S1/S2 regular rate and rhythm. No murmur, rub or gallop Lungs- Clear to auscultation bilaterally Extremities- Pulses equal bilaterally. Trace- +1 bilateral edema noted Neuro- A&Ox3 Diagnostics: ECG in office today shows sinus rhythm, anterolateral twave inversions (consistent with old EKG from 02/05), rate 71. Echo 02/03/17: SUMMARY: 1. The left ventricular chamber size is normal. Basal septal hypertrophy is observed. Global left ventricular systolic function is moderately reduced. The quantitative left ventricular ejection fraction by biplane Dowd's method is 35%. There are segmental wall motion abnormalities as shown in the diagram below, primarily in the kranthi-apical distribution. A left ventricular thrombus cannot be ruled out (question of apical thrombus arises in clips #90-92 in the lateral apex). 2. The right ventricle is normal in size. Right ventricular global systolic function is normal. The estimated pulmonary artery systolic pressure is 26 mmHg. 3. There is no hemodynamically significant valvular disease. 4. There is moderate dilatation of the ascending aorta.The ascending aorta measures between 3.9 and 4.1 cm in diameter. 5. No prior study for comparison. See report below for remainder of findings. Cardiac catheterization 02/03/17: Conclusions: * One vessel coronary artery disease (LAD) * Successful stent insertion of the mid LAD lesion * Successful angioplasty of the ostial D1 lesion * Recommend continuing clopidogrel 75 mg PO daily for 12 months (see DAPT Recommendations above for more information.) Assessment and Plan: 81 y.o. with medical history significant for CAD, HTN, AAA, hyperlipidemia, former smoker and NIDDMwho was recently hospitalized for a NSTEMI and had PCI of the mid LAD and angioplastly of ostial D1. Plan: 1. Coronary artery disease with recent NSTEMI: s/p PCI of mid LAD, angio of ostial D1. Has had no chest pain, discomfort, or shortness of breath since discharge. Continues on aspirin, plavix, lisinopril and atorvastatin since discharge. Apparently he ran out of his prescription for his beta juma(Toprol XL 100 mg) awhile ago and can't remember exactly when. On review of his discharge AVS, hewas discharged on 02/05 with a 30 day supply so this should have just ran out. Will reorder at previous dosing. 2. Ischemic cardiomyopathy, HFrEF: no signs of acute failure at this time. EF 35% on hospital admission echo. Continues on lisinopril, toprol XL reordered at 100 mg daily. Should have echo checked inJanuary 2017 (3 months from admission echo). Advised he monitor weight daily and avoid high salt foods,follow a no added salt diet 3. HTN: Stable today, to continue on lisinopril and toprol XL. 4. HLD: Continues on atorvastatin, no changes made to dosing Shoshana Moyer APRN 03/10/2017 Patient Instructions Check your weight every day and write it down each day in a notebook--bring this weight journal to your next appointment Limit salt intake, no added salt to meals, avoid high salt foods like processed meats, canned foods, microwaved foods Plan for a repeat echocardiogram in May with a follow visit with Shoshana Moyer or Dr. Saenz documented in this encounter Plan of Treatment Upcoming Encounters Date Type Department Care Team (Latest Contact Info) Description 01/02/2024 1:30 PM EDT Laboratory Appointment Lab [address] [address] 01/02/2024 3:00 PM EDT Office Visit [place] [address] Adam Costa MD [facility] [place] [address] documented as of this encounter Procedures Procedure Name Priority Date/Time Associated Diagnosis Comments EKG 12-LEAD Routine 03/10/2017 2:33 PM EST Coronary artery disease, angina presence unspecified, unspecified vessel or lesion type, unspecified whether modoc or transplanted heart documented in this encounter Results * EKG 12 Lead (03/10/2017 2:33 PM EST) Ventricular rate 71 BPM MUSE SYSTEM Atrial Rate 71 BPM MUSE SYSTEM P-R Interval 226 ms MUSE SYSTEM QRS Duration 92 ms MUSE SYSTEM Q-T Interval 414 ms MUSE SYSTEM QTC Calculated (Bezet) 449 ms MUSE SYSTEM Calculated P [place] 19 degrees MUSE SYSTEM Calculated R [place] 134 degrees MUSE SYSTEM Calculated T [place] 135 degrees MUSE SYSTEM INTERPRETATION Sinus rhythm with 1st degree A-V block Right axis deviation Marked T wave abnormality consider anterolateral ischemia Abnormal ECG When compared with ECG of 05-FEB-2017 07:26, No significant change was found Confirmed by MD MARY, RUTH ([id number]) on 03/10/2017 6:29:17 PM MUSE SYSTEM 03/10/2017 2:33 PM EST 03/10/2017 6:29 PM EST Shoshana Moyer APRN ECG ORDERABLES MUSE SYSTEM documented in this encounter Visit Diagnoses Diagnosis Coronary artery disease, angina presence unspecified, unspecified vessel or lesion type, unspecified whether modoc or transplanted heart documented in this encounter Care Teams Loading Machine Tool Setter Relationship Specialty Start Date End Date Rolando Moise MD [address] [place] [address] PCP - General Family Medicine 09/16/16 documented as of this encounter
--- OUTSIDE RECORDS SUMMARY | 2023-12-21 07:52 | XMS_ITS | Encounter Summary ---
Author Organization [facility] Address [facility] [place] [address] Care Team Providers Care Supervisor Accounting Clerks Name Role Phone Rolando Moise MD Primary Care Provider [phone] Reason for Visit * Reason Comments Follow-up Coronary Artery Disease Encounter Details Date Type Department Care Team (Latest Contact Info) Description 09/22/2017 4:00 PM EDT Office Visit Cardiology at [address] [address] Shoshana Moyer APRN [facility] [place] [place] [address] ASCVD (arteriosclerotic cardiovascular disease); Hypertension, unspecified type; Cardiomyopathy, ischemic Social History Tobacco Use Types Packs/Day Years [...] Sign Reading Time Taken Comments Blood Pressure 160/82 09/22/2017 4:17 PM EDT Pulse 58 09/22/2017 3:54 PM EDT Temperature - - Respiratory Rate - - Oxygen Saturation 98% 09/22/2017 3:54 PM EDT Inhaled Oxygen Concentration - - Weight 90.3 kg (199 lb) 09/22/2017 3:54 PM EDT Height 177.8 cm (5' 10) 09/22/2017 3:54 PM EDT Body Mass Index 28.55 09/22/2017 3:54 PM EDT documented in this encounter Patient Instructions * Patient Instructions* Shoshana Moyer APRN - 09/22/2017 4:00 PM EDT 1. Continue current medications as ordered. 2. If able, please purchase a blood pressure cuff from your local pharmacy and check your blood pressure twice a day and keep a journal of these readings. 3. I have arranged for you to have a follow up blood pressure check at your primary care office in 2 weeks, you will be called with these appointment details. Have lab work done at this time. 4. Plan for follow up in our office 3 months. Please call our clinic at [phone] if you have any further concerns prior to your next appointment. documented in this encounter Progress Notes * Shoshana Moyer APRN - 09/22/2017 4:00 PM EDT Images from the original note were not included[place] [address] [place] [address] General Cardiology Follow Up Subjective: Patient ID: Cesar Thompson is a 81 y.o. male. CC: Follow up of cardiovascular problems. HPI: 81 y.o. male with past medical history significant for CAD, HTN, AAA, hyperlipidemia, former smoker and NIDDM who was recently hospitalized in February 2017 for an NSTEMI with PCI of the mid LAD and angioplastly of ostial D1. On echocardiogram his ejection fraction was estimated at 35 % and there was some notation of a possible LV thrombus though this was not felt to be present after further review. INTERIM: He had an ED visit in [facility] yesterday for eye discomfort and was diagnosed with bilateral conjunctivitis, and prescribed erythromycin. Otherwise no other ED visits or hospitalizations. 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 Has had no concerning symptoms with the activity he does around his home and yard day to day. Did not attend a cardiac rehab program. Has not used any tobacco since prior to his hospitalization last fall and feels great. He currently denies any chest pain, shortness of breath, palpitations, near-syncope, or syncopal events. Patient Active Problem List Diagnosis ??? NSTEMI (non-ST elevated myocardial infarction) ??? HTN (hypertension) Overview Note: Assessment & Plan Note: BP: (160-180)/(82) Blood pressure not well controlled today. I called his PCP office and spoke with one of the RNs whostates his blood pressure at last office visit in their office on 08/27 was 114/60. The patient believes his blood pressure is mostly controlled with the systolic number ranging around the 130s, though he does not check this at home. I encouraged him to purchase his own blood pressure and check his blood pressure twice a day. I contacted his PCP office who will arrange a blood pressure check in their office in about 2 weeks with lab work- I provided him a slip for a BMP. If his blood pressure remains elevated and his lab work is acceptable, I would suggest up titration of his lisinopril for tighter control. ??? Diabetes mellitus type 2, noninsulin dependent Overview Note: ??? ASCVD (arteriosclerotic cardiovascular disease) Assessment & Plan Note: He has had no concerning chest pain or shortness of breath. He has not used any SL nitroglycerin since our last visit. 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 He also tolerates house/yard work fine without any symptoms. He has abstained from tobacco use for the last 7 months without issue. His echocardiogram was reviewed today with him, which shows improvement inhis LVEF and no WMAs. We will continue his current regimen for now, and he will have a blood pressure check in 2 weeks at his PCP office. Otherwise, follow up with cardiology in 3 months. ??? Cardiomyopathy, ischemic Assessment & Plan Note: Echo today shows improvement in LVEF from 35% to 60%. He has had no concerning symptoms of shortness of breath, edema. Weight has been stable. Continues on GMT. ??? AAA (abdominal aortic aneurysm) Overview Note: 04/12/11 s/p endograft repair of AAA ??? S/P hernia repair Overview Note: umbilical ROS: see HPI Constitutional: - fatigue, - fever, - chills [...] Take 20 mg by mouth daily. ??? meTOPROLOL succinate (TOPROL-XL) 100 mg Tablet Sustained Release 24 hr Take 1 tablet by mouth daily. 90 tablet 3 ??? clopidogrel (PLAVIX) 75 mg Tablet Take 1 tablet by mouth daily. 90 tablet 3 ??? aspirin 81 mg Tablet, Delayed Release (E.C.) Take 81 mg by mouth daily. ??? lisinopril (PRINIVIL;ZESTRIL) 20 mg Tablet Take 20 mg by mouth daily. ??? tamsulosin (FLOMAX) 0.4 mg Capsule, Sust. Release 24 hr Take 0.4 mg by mouth daily. ??? metFORMIN (GLUCOPHAGE) 500 mg tablet Take 500 mg by mouth 2 times daily (with meals). ??? nitroGLYcerin (NITROSTAT) 0.4 mg Tablet, Sublingual Place 1 tablet under the tongue every 5 minutes as needed for Chest pain. 25 tablet 1 Objective: Vitals: Vitals: 09/22/17 1554 09/22/17 1617 BP: 180/82 160/82 BP Location (NBP): Left arm Left arm Patient Position: Sitting Sitting BP Cuff Sizes: Adult (25-34 cm) Pulse: 58 SpO2: 98% Weight: 90.3 kg (199 lb) Height: 177.8 cm (5' 10) Physical Exam: General- No acute distress, sitting comfortably in exam room chair HEENT- Head atraumatic, normocephalic Skin- Warm, dry, and intact Neck- No JVD noted Cardiovascular- S1/S2 regular rate and rhythm. No murmur, rub or gallop Lungs- Clear to auscultation bilaterally Extremities- Pulses equal bilaterally. Trace bilateral edema noted Neuro- A&Ox3 Diagnostics: Echo 09/22/2017: BP: 164/83 SUMMARY: 1. There is mild [...] See remainder of report for additional findings. Echo 02/03/17: SUMMARY: 1. The left ventricular [...] AAA, hyperlipidemia, former smoker and NIDDMwho was hospitalized in February 2017 for an NSTEMI and had PCI of the mid LAD and angioplastly of ostial D1. Plan: Problem List Items Addressed This Visit HTN (hypertension) BP: (160-180)/(82) Blood pressure not well controlled today. I called his PCP office and spoke with one of the RNs whostates his blood pressure at last office visit in their office on 08/27 was 114/60. The patient believes his blood pressure is mostly controlled with the systolic number ranging around the 130s, though he does not check this at home. I encouraged him to purchase his own blood pressure and check his blood pressure twice a day. I contacted his PCP office who will arrange a blood pressure check in their office in about 2 weeks with lab work- I provided him a slip for a BMP. If his blood pressure remains elevated and his lab work is acceptable, I would suggest up titration of his lisinopril for tighter control. Cardiomyopathy, ischemic Echo today shows improvement in LVEF from 35% to 60%. He has had no concerning symptoms of shortness of breath, edema. Weight has been stable. Continues on GMT. ASCVD (arteriosclerotic cardiovascular disease) He has had no concerning chest pain or shortness of breath. He has not used any SL nitroglycerin since our last visit. 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 He also tolerates house/yard work fine without any symptoms. He has abstained from tobacco use for the last 7 months without issue. His echocardiogram was reviewed today with him, which shows improvement inhis LVEF and no WMAs. We will continue his current regimen for now, and he will have a blood pressure check in 2 weeks at his PCP office. Otherwise, follow up with cardiology in 3 months. Relevant Orders Basic Metabolic Panel (non-fasting) Shoshana Moyer APRN Cardiovascular Medicine 09/23/2017 Patient Instructions 1. Continue current medications as ordered. 2. If able, please purchase a blood pressure cuff from your local pharmacy and check your blood pressure twice a day and keep a journal of these readings. 3. I have arranged for you to have a follow up blood pressure check at your primary care office in 2 weeks, you will be called with these appointment details. Have lab work done at this time. 4. Plan for follow up in our office 3 months. Please call our clinic at [phone] if you have any further concerns prior to your next appointment. documented in this encounter Miscellaneous Notes * Assessment & Plan Note - Shoshana Moyer APRN - 09/22/2017 4:41 PM EDT Associated Problem(s): Cardiomyopathy, ischemic Echo today shows improvement in LVEF from 35% to 60%. He has had no concerning symptoms of shortness of breath, edema. Weight has been stable. Continues on GMT. * Assessment & Plan Note - Shoshana Moyer APRN - 09/22/2017 4:37 PM EDT Associated Problem(s): HTN (hypertension) BP: (160-180)/(82) Blood pressure not well controlled today. I called his PCP office and spoke with one of the RNs whostates his blood pressure at last office visit in their office on 08/27 was 114/60. The patient believes his blood pressure is mostly controlled with the systolic number ranging around the 130s, though he does not check this at home. I encouraged him to purchase his own blood pressure and check his blood pressure twice a day. I contacted his PCP office who will arrange a blood pressure check in their office in about 2 weeks with lab work- I provided him a slip for a BMP. If his blood pressure remains elevated and his lab work is acceptable, I would suggest up titration of his lisinopril for tighter control. * Assessment & Plan Note - Shoshana Moyer APRN - 09/22/2017 4:18 PM EDT Associated Problem(s): ASCVD (arteriosclerotic cardiovascular disease) He has had no concerning chest pain or shortness of breath. He has not used any SL nitroglycerin since our last visit. 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 He also tolerates house/yard work fine without any symptoms. He has abstained from tobacco use for the last 7 months without issue. His echocardiogram was reviewed today with him, which shows improvement inhis LVEF and no WMAs. We will continue his current regimen for now, and he will have a blood pressure check in 2 weeks at his PCP office. Otherwise, follow up with cardiology in 3 months. documented in this encounter Plan of Treatment Upcoming Encounters Date Type Department Care Team (Latest Contact Info) Description 01/02/2024 1:30 PM EDT Laboratory Appointment Lab [address] [place] [address] 01/02/2024 3:00 PM EDT Office Visit [place] [address] Adam Costa MD [facility] [place] [address] documented as of this encounter Visit Diagnoses Diagnosis ASCVD (arteriosclerotic cardiovascular disease) Unspecified cardiovascular disease Hypertension, unspecified type Cardiomyopathy, ischemic Other specified forms of chronic ischemic heart disease documented in this encounter Care Teams Supervisor Accounting Clerks Relationship Specialty Start Date End Date Rolando Moise MD [address] [place] [address] [place] [address] PCP - General Family Medicine 09/16/16 documented as of this encounter
--- OUTSIDE RECORDS SUMMARY | 2023-12-21 07:52 | XMS_ITS | Encounter Summary ---
Author Organization [facility] [place] [address] Care Team Providers Care Beach Expert Name Role Phone Rolando Moise MD Primary Care Provider [phone] Encounter Details Date Type Department Care Team (Late st Contact Info) Description 11/07/2020 4:20 AM EDT Ancillary Procedure [place] [phone] Rolando Moise MD [facility] [phone] Social History Tobacco Use Types Packs/Day Years [...] 1:30 PM EDT Laboratory Appointment Lab [address] [place] [phone] 01/02/2024 3:00 PM EDT Office Visit [place] [phone] Adam Costa MD [facility] NEPHROLOGY [place], [place] [id number] documented as of this encounter Procedures Procedure Name Priority Date/Time Associated Diagnosis Comments FILM LIBRARY STORAGE ONLY CT CHEST ABDOMEN PELVIS Routine 11/07/2020 4:19 AM EDT documented in this encounter Results * Film Library- Storage Only CT Chest Abdomen Pelvis (11/07/2020 4:19 AM EDT) Narrative [facility] - 11/07/2020 4:19 AM EDT This exam is auto-finalizing. It's purpose is for storage only. Rolando Moise MD IMG FILM LIBRARY ORD ERABLES Performing Organization Address City/State/[facility] Co de Phone Number [place], [place] documented in this encounter Visit Diagnoses Not on filedocumented in this encounter Care Teams Beach Expert Relationship Specialty Start Date End Date Rolando Moise MD [address] [place] [address] PCP - General Family Medicine 09/16/16 documented as of this encounter
--- OUTSIDE RECORDS SUMMARY | 2023-12-21 07:52 | XMS_ITS | Encounter Summary ---
Author Organization [facility] Address [facility] [place] [address] Care Team Providers Care Game Farm Supervisor Name Role Phone Rolando Moise MD Primary Care Provider [phone] Reason for Referral * Diagnostic Test (Routine) - Closed Specialty Diagnoses / Procedures Referred By Teodoro robertson Referred To Contact Cardiology Diagnoses Cardiomyopathy, ischemic Procedures Echocardiogram Transthoracic(Leb) Muriel Manning MD [facility] [place] [address] [facility] [place] [address] Referral ID Status Reason Start Date Expiration Date V isits Requested Visits Authorized [id number] Closed Specialty Service Requested 05/27/2017 05/27/2018 1 1 Encounter Details Date Type Department Care Team (Late st Contact Info) Description 05/27/2017 Orders Only Cardiology at [address] [address] Muriel Manning MD [facility] [place] [address] Cardiomyopathy, ischemic Social History Tobacco Use Types [...] 1:30 PM EDT Laboratory Appointment Lab [address] [place] [phone] 01/02/2024 3:00 PM EDT Office Visit Nephrology [place] [address] Adam Costa MD [facility] [place] [address] documented as of this encounter Results * ECHO COMPLETE (09/22/2017 2:33 PM EDT) EF 60 HEARTLAB SYSTEM Anatomical Region Laterality Modality Other 09/22/2017 Narrative 09/22/2017 2:40 PM EDT Procedure: ?Transthoracic Echocardiogram Patient: ?EDD LEIVA D ?(Age): 1935(81y) Med Rec#: ? [id number] ?Sex: ?M ? Site Loc: ? [facility] ?Ht / Wt: ??178(cm)/88(kg) Pt. Loc: ?Echo Lab ?BSA: ?2.06 Study Date: ?? 09/22/2017 ?Pt. Type: Outpatient Tape: ? Referring: MURIEL MANNING T Reading: Bayron Oliva ([id number]) Physician Industrial: Taisha Davidson Diagnosis: *ICD-10-PCS Ischemic cardiomyopathy (I25.5) [...] E-wave Vmax ?0.7 ?m/sec ? MV deceleration [id number] ?msec ? MV A-wave Vmax ?1.3 ?m/sec [...] ? Mid-Inferior ?Normal ? Mid-Inferoseptal ?Normal ? [place]-Septal ? Normal ? [place]-Anterior ? Normal ? [place]-Lateral ?Normal ? [place]-Inferior ? Normal ? [place]-Tip ?Normal ? This report has been electronically signed by: Bayron Oliva M.D. ? 09/22/2017 14:40:07 Images reviewed and interpretation verified [facility] Cardiac Ultrasound Laboratory Procedure Note Bayron Oliva MD - 09/22/2017 Procedure: Transthoracic Echocardiogram Patient: EDD COUCH(Age): 1935(81y) Med Rec#: [id number] Sex: M Site Loc: [facility] Ht / Wt: 178(cm)/88(kg) Pt. Loc: Echo Lab BSA: 2.06 Study Date: 09/22/2017 Pt. Type: Outpatient Tape: Referring: MURIEL MANNING T Reading: Bayron Oliva ([id number]) Physician Industrial: Taisha Davidson Diagnosis: *ICD-10-PCS Ischemic cardiomyopathy (I25.5) [...] MV E-wave Vmax 0.7 m/sec MV deceleration [id number] msec MV A-wave Vmax 1.3 m/sec MV [...] Normal Mid-Posterolateral Normal Mid-Inferior Normal Mid-Inferoseptal Normal [place]-Septal Normal [place]-Anterior Normal [place]-Lateral Normal [place]-Inferior Normal [place]-Tip Normal This report has been electronically signed by: Bayron Oliva M.D. 09/22/2017 14:40:07 Images reviewed and interpretation verified [facility] Cardiac Ultrasound Laboratory Muriel Manning MD ECHO ORDERABLES documented in this encounter Visit Diagnoses Diagnosis Cardiomyopathy, ischemic Other specified forms of chronic ischemic heart disease Cardiomyopathy, ischemic Other specified forms of chronic ischemic heart disease documented in this encounter Care Teams Game Farm Supervisor Relationship Specialty Start Date End Date Rolando Moise MD [facility] [place] [phone] PCP - General Family Medicine 09/16/16 documented as of this encounter
--- OUTSIDE RECORDS SUMMARY | 2023-12-21 07:52 | XMS_ITS | Encounter Summary ---
[place] [address] Care Team Providers Care Cut Out Operator Name Role Phone Rolando Moise MD Primary Care Provider Reason for Referral * Consultation (Routine) - Closed Specialty Diagnoses / Procedures Referred By Contac t Referred To Contact Nephrology Diagnoses Chronic kidney disease, stage IV (severe) Rolando Moise MD [address] [place] [address] [facility] Nephrology [address] [place] [phone] Referral ID Status Reason Start Date Expiration Date V isits Requested Visits Authorized [id number] Closed Consult, Test & Treat PCP Updated and/or Approved 02/28/2022 02/28/2023 6 6 Encounter Details Date Type Department Care Team (Latest Contact Info) Description 02/28/2022 Transcribe Orders eDH Incoming Referrals [phone] Rolando Moise MD [address] [place] [address] Chronic kidney disease, stage IV (severe) Social History Tobacco Use Types Packs/Day Years [...] 1:30 PM EDT Laboratory Appointment Lab [address] [place] [address] 01/02/2024 3:00 PM EDT Office Visit [place] [address] Adam Costa MD [facility] [place] [address] Scheduled Referrals Name Type Priority Associated Diagnoses Order Schedule Referral to Nephrology Outpatient Referral Routine Chronic kidney disease, stage IV (severe) Ordered: 02/28/2022 documented as of this encounter Visit Diagnoses Diagnosis Chronic kidney disease, stage IV (severe) Chronic kidney disease, Stage IV (severe) documented in this encounter Care Teams Cut Out Operator Relationship Specialty Start Date End Date Rolando Moise MD [address] [place] [phone] PCP - General Family Medicine 09/16/16 documented as of this encounter
--- OUTSIDE RECORDS SUMMARY | 2023-12-21 07:52 | XMS_ITS | Encounter Summary ---
Author Organization [facility] Address [facility] [place] [address] Care Team Providers Care Medical Claims Representative Name Role Phone Rolando Moise MD Primary Care Provider [phone] Encounter Details Date Type Department Care Team (Late st Contact Info) Description 12/16/2023 [place] [address] Nimisha Olmos Social History Tobacco Use Types Packs/Day Years [...] encounter Miscellaneous Notes * Telephone Encounter - Nimisha Olmos - 12/16/2023 2:20 PM EDT 12/15 lvm x2 KF documented in this encounter Plan of Treatment Upcoming Encounters Date Type Department Care Team (Latest Contact Info) Description 01/02/2024 1:30 PM EDT Laboratory Appointment Lab [address] [place] [phone] 01/02/2024 3:00 PM EDT Office Visit [place] [address] Adam Costa MD [facility] [place] [address] documented as of this encounter Visit Diagnoses Not on filedocumented in this encounter Care Teams Medical Claims Representative Relationship Specialty Start Date End Date Rolando Moise MD [address] [place] [address] PCP - General Family Medicine 09/16/16 documented as of this encounter
--- OUTSIDE RECORDS SUMMARY | 2023-12-21 07:52 | XMS_ITS | Encounter Summary ---
Author Organization [facility] Address [facility] [place] [address] Care Team Providers Care Entrepreneurial Finance Professor Name Role Phone Rolando Moise MD Primary Care Provider [phone] Encounter Details Date Type Department Care Team (Late st Contact Info) Description 11/09/2020 Telephone [place] [phone] Evan Sinclair MD [facility] [place] [address] Social History Tobacco Use Types Packs/Day Years [...] 1:30 PM EDT Laboratory Appointment Lab [address] [place] [address] 01/02/2024 3:00 PM EDT Office Visit Neph[place] [address] Adam Costa MD [facility] [place] [address] documented as of this encounter Visit Diagnoses Not on filedocumented in this encounter Care Teams Entrepreneurial Finance Professor Relationship Specialty Start Date End Date Rolando Moise MD [employer] [place] [phone] PCP - General Family Medicine 09/16/16 documented as of this encounter
--- OUTSIDE RECORDS SUMMARY | 2023-12-21 07:52 | XMS_ITS | Encounter Summary ---
Author Organization [facility] [place] [address] Care Team Providers Care Managing Jeweler Name Role Phone Rolando Moise MD Primary Care Provider [phone] Encounter Details Date Type Department Care Team (Late st Contact Info) Description 07/25/2023 Telephone [place] [phone] Migue Ahn Social History Tobacco Use Types [...] Telephone Encounter - Migue Ahn - 07/25/2023 9:05 AM EDT Moved 09/02 new patient appointment from Dr. Head to Dr. Zhao, if patient calls back please tell him to disregard previous message. This appointment no longer needs to be rescheduled. documented in this encounter Plan of Treatment Upcoming Encounters Date Type Department Care Team (Latest Contact Info) Description 01/02/2024 1:30 PM EDT Laboratory Appointment Lab [address] [place] [address] 01/02/2024 3:00 PM EDT Office Visit Ne[place] [address] Adam Costa MD [facility] [place] [address] documented as of this encounter Visit Diagnoses Not on filedocumented in this encounter Care Teams Managing Jeweler Relationship Specialty Start Date End Date Rolando Moise MD [address] [place] [address] [place] [address] PCP - General Family Medicine 09/16/16 documented as of this encounter
--- OUTSIDE RECORDS SUMMARY | 2023-12-21 07:52 | XMS_ITS | Encounter Summary ---
Author Organization [facility] Address [facility] [place] [address] Care Team Providers Care Roll Machine Operator Name Role Phone Rolando Moise MD Primary Care Provider [phone] Encounter Details Date Type Department Care Team (Late st Contact Info) Description 07/19/2018 [place] [phone] Suzanna Krueger MD [facility] CR[facility] [place] [address] Social History Tobacco Use Types Packs/Day Years [...] encounter Miscellaneous Notes * Telephone Encounter - Suzanna Krueger MD - 07/19/2018 6:32 PM EDT Telephone Triage Note Initial Contact Date: 07/19/2018 Initial contact time: ~1830 Referring Provider: Dr. Conner Patient Location: [facility] Reason for call: consultation, request for records Presenting Symptoms per OSH: 82yoM admitted with diverticulitis c/b abscess with perforation requiring emergent surgery. His ASAand PLavix have been held and Dr. Angulo is checking in on timing and content of prior intervention to assess urgency of resuming. Assessment/Plan: Advised Dr. Conner that Mr. Thompson underwent MINNIE to the mLAD and POBA to the oD1 in February of 2017.Reasonable to hold DAPT in this setting with surgery. Advised resumption of ASA as soon as felt safe from a surgical perspective. Also updated Dr. Conner that patient's LVEF to 60% had completely recovered on last TTE. documented in this encounter Plan of Treatment Upcoming Encounters Date Type Department Care Team (Latest Contact Info) Description 01/02/2024 1:30 PM EDT Laboratory Appointment Lab [address] [place] [address] 01/02/2024 3:00 PM EDT Office Visit Nephrology [place] [address] Adam Costa MD [facility] [place] [address] documented as of this encounter Visit Diagnoses Not on filedocumented in this encounter Care Teams Roll Machine Operator Relationship Specialty Start Date End Date Rolando Moise MD [facility] [place] [address] PCP - General Family Medicine 09/16/16 documented as of this encounter
--- OUTSIDE RECORDS SUMMARY | 2023-12-21 07:52 | XMS_ITS | Encounter Summary ---
Author [facility] [place] [address] Care Team Providers Care Body Masker Name Role Phone Rolando Moise MD Primary Care Provider [phone] Reason for Referral * Diagnostic Test (Routine) - Authorized Specialty Diagnoses / Procedures Referred By Teodoro robertson Referred To Contact Radiology Diagnoses Infrarenal abdominal aortic aneurysm (AAA) without rupture Procedures CT Angiogram Abdomen & Pelvis w Contrast (Generic) Pascale Barboza APRN [facility] [place] [address] [facility] [place] [address] Referral ID Status Reason Start Date Expiration Date Visits Requested Visits Authorized [id number] Authorized Specialty Service Requested 06/16/2023 12/14/2024 1 1 Encounter Details Date Type Department Care Team (Late st Contact Info) Description 06/16/2023 Orders Only [place] [address] [address] [facility] [place] [address] Infrarenal abdominal aortic aneurysm (AAA) without rupture [...] 1:30 PM EDT Laboratory Appointment Lab [address] [place] [address] 01/02/2024 3:00 PM EDT Office Visit Nephrology [place] [address] [facility] [place] [address] Scheduled Orders Name Type Priority Associated Diagnoses Orde r Schedule CT Angiogram Abdomen & Pelvis w Contrast (Generic) Imaging Routine Infrarenal abdominal aortic aneurysm (AAA) without rupture Expected: 07/15/2023, Expires: 06/16/2024 documented as of this encounter Visit Diagnoses Diagnosis Infrarenal abdominal aortic aneurysm (AAA) without rupture documented in this encounter Care Teams Body Masker Relationship Specialty Start Date End Date Rolando Moise MD [address] [place] [address] PCP - General Family Medicine 09/16/16 documented as of this encounter
--- OUTSIDE RECORDS SUMMARY | 2023-12-21 07:52 | XMS_ITS | Clinical Summary ---
Author Organization [facility] Address [facility] [place] [address] Care Team Providers Care Emergency Medicine Physician Assistant Name Role Phone Rolando Moise MD Primary Care Provider [phone] Allergies No known active allergies Medications Medication Sig Dispensed Refills Start Date End Date Status tamsulosin (FLOMAX) 0.4 mg Capsule, Sust. Release 24 hr Take 0.4 mg by mouth daily. Active nitroGLYcerin (NITROSTAT) 0.4 mg Tablet, Sublingual Place 1 tablet under the tongue every 5 minutes as needed for Chest pain. 25 tablet 1 02/05/2017 Active apixaban (Eliquis) 2.5 mg Tablet Take 1 tablet by mouth 2 times daily. 60 tablet 3 11/09/2020 Active insulin glargine (Lantus) Solution Inject 10 Units subcutaneously daily. 1 vial 12 11/10/2020 Active insulin lispro (HumaLOG;Admelog) 100 unit/mL Solution Inject 4 Units subcutaneously 3 times daily (with meals). 1 vial 12 11/09/2020 Active Insulin Syringe-Needle U-100 0.3 mL 31 gauge x 5/16 Syringe 1 Box by [facility].(Non-Drug; Combo Route) route as needed. 90 Syringe 3 11/09/2020 Active insulin lispro (humaLOG KwikPen) Insulin PenIndications:typ e 2 diabetes mellitus Inject 4 Units subcutaneously 3 times daily (with meals). Indications: type 2 diabetes mellitus 1500 vial 3 11/09/2020 Active AMIOdarone (Pacerone) 200 mg Tablet Take 1 tablet by mouth daily. Take 2 tablet TWICE a DAY for 7days. Then decrease to 1 tablet ONCE a DAY 30 tablet 11 11/09/2020 Active insulin aspart protamine-insulin aspart 70/30 (novoLOG Mix 70-30) Solution Inject 10 Units subcutaneously daily. 15 mL 3 11/09/2020 Active alogliptin (Nesina) 6.25 mg tablet 6.25 mg. 09/26/2021 Active amLODIPine (Norvasc) 2.5 mg tablet Take 1 tablet by mouth daily. 04/01/2022 Active betamethasone dipropionate (Diprolene) 0.05 % Cream APPLY SMALL AMOUNT TOPICALLY TO AFFECTED AREA TWICE A DAY NEEDED FOR ITCHING/RASH 08/31/2021 Active calciTRIoL (Rocaltrol) 0.25 mcg capsule 0.25 mcg. 05/21/2022 Active cyanocobalamin, Vitamin B-12, (Vitamin B-12) 1,000 mcg tablet Take 1 tablet by mouth daily. 02/05/2022 Active furosemide (Lasix) 80 mg tablet 80 mg. 11/12/2021 Active insulin aspart U-100 (NovoLOG) 100 unit/mL Solution INJECT 9 UNITS SUBCUTANEOUSLY THREE TIMES A DAY BEFORE MEALS - DISCARD OPEN VIALS AFTER 28 DAYS. REFRIGERATE UNOPENED VIALS 07/17/2022 Active insulin detemir U-100 (Levemir) 100 unit/mL Solution INJECT 25 UNITS SUBCUTANEOUSLY EVERY MORNING -DISCARD OPEN VIAL AFTER 42 DAYS. REFRIGERATE UNOPENED VIALS. 07/17/2022 Active magnesium oxide (Mag-Ox) 400 mg (241.3 mg magnesium) Tablet Take 1 tablet by mouth 2 times daily. 04/01/2022 Active atorvastatin (Lipitor) 40 mg tablet Take 1 tablet by mouth every evening. 05/21/2022 Active lisinopriL (Zestril) 5 mg tablet Take 1 tablet by mouth daily. 04/01/2022 Active metoprolol succinate XL (Toprol-XL) 50 mg ER 24 hr tablet Take 1 tablet by mouth daily. 06/07/2022 Active cholecalciferol (Vitamin D3) 1,000 unit tablet Take 1 tablet by mouth daily. 06/12/2022 Active Active Problems Problem Noted Date Diagnosed Date Chest pain 11/07/2020 ASCVD (arteriosclerotic cardiovascular disease) 09/22/2017 Assessment & Plan (09/22/2017 4:41 PM EDT): He has had no concerning chest pain or shortness of breath. He has not used any SL nitroglycerin since our last visit. 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 He also tolerates house/yard work fine without any symptoms. He has abstained from tobacco use for the last 7 months without issue. His echocardiogram was reviewed today with him, which shows improvement in his LVEF and no WMAs. We will continue his current regimen for now, and he will have a blood pressure check in 2 weeks at his PCP office. Otherwise, follow up with cardiology in 3 months. Cardiomyopathy, ischemic 03/15/2017 Assessment & Plan (09/22/2017 4:42 PM EDT): Echo today shows improvement in LVEF from 35% to 60%. He has had no concerning symptoms of shortness of breath, edema. Weight has been stable. Continues on GMT. 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 I called his PCP office and spoke with one of the RNs who states his blood pressure at last office visit [...] titration of his lisinopril for tighter control. Diabetes mellitus type 2, noninsulin dependent 1 06/13/2010 S/P hernia repair 04/12/2011 Overview (02/03/2017): umbilical Type 2 diabetes mellitus Encounters Date Type Department Care Team Description 12/16/2023 [place] [address] Nimisha Olmos from Last 3 Months Immunizations Name Administration Dates Next Due Influenza (Fluzone HD) Trivalent High Dose 02/05 Social History Tobacco Use Types Packs/Day Years [...] Sign Reading Time Taken Comments Blood Pressure 106/69 11/09/2020 8:30 AM EDT Pulse 57 11/09/2020 8:30 AM EDT Temperature 37 ??C (98.6 ??F) 11/09/2020 8:30 AM EDT Respiratory Rate 20 11/09/2020 8:30 AM EDT Oxygen Saturation 93% 11/09/2020 7:45 AM EDT Inhaled Oxygen Concentration - - Weight 88 kg (194 lb 0.1 oz) 11/09/2020 5:48 AM EDT Height 177.8 cm (5' 10) 11/07/2020 6:52 AM EDT Body Mass Index 27.84 11/07/2020 6:52 AM EDT Plan of Treatment Upcoming Encounters Date Type Department Care Team (Latest Contact Info) Description 01/02/2024 1:30 PM EDT Laboratory Appointment Lab [address] [place] [address] 01/02/2024 3:00 PM EDT Office Visit Neph[place] [address] Adam Costa MD [facility] [place] [address] Health Maintenance Due Date Last Done Comments Pneumoccocal Vaccine: 65+ (1 of 2 - PCV) 1942 DM Opthalmology Exam 1946 DM Urine Microalbumin yearly 1945 Tdap adult 11/16/1955 Tetanus vaccine 11/16/1955 Zoster vaccine (1 of 2) 1986 Advance Directive 11/16/1991 DM Hemoglobin A1c 02/07/2021 11/07/2020, , 02/04/2017 DM Creatinine yearly 11/09/2021 11/09/2020, 11/08/2020, 11/07/2020, Additional history exists Covid-19 Vaccine (1 - 2022-2 4 season) 2023 Influenza (Flu) vaccine (1 o f 1 - Influenza standard series) 01/04/2024 02/05/2017 Medical Devices Implanted Type Area Ticket Scheduler Device Identifier Shelf Expiration Date Model / Serial / Lot Graft,Zfa,Mbdy ,[id number] ([id number]) (Autoreq) - [id number] Implanted:Qty: 1 on 04/12/2011 at [facility] IMPLANTS N/A: Aorta 03/13/2012 TFFB-32-82 -ZT / [id number] / [id number] Graft,Zfa,Ciil ,[id number],[id number] ([id number]) ([employer]) - [id number] Implanted:Qty: 1 on 04/12/2011 at [facility] IMPLANTS Right: Abdomen 08/11/2012 TFLE-16-56 -ZT / [id number] / [id number] Description:right iliac Graft,Zfa,Ciil ,Ztk,[id number] ([id number]) ([employer]) - [id number] Implanted:Qty: 1 on 04/12/2011 at [facility] IMPLANTS Left: Abdomen 03/13/2012 TFLE-16-73 -ZT / [id number] / [id number] Procedures Procedure Name Priority Date/Time Associated Diagnosis Comments LAB SCAN 11/18/2023 12:00 AM EDT LAB SCAN 09/25/2023 12:00 AM EDT HC VENIPUNCTURE Routine 11/09/2020 6:57 AM EDT HEMOGLOBIN A1C Routine 11/07/2020 8:50 AM EDT from Last 3 Months or Most Recently Relevant to Health Maintenance Results * Scan Doc: Lab (11/18/2023 12:00 AM EDT) Only the most recent of2 resultswithin the time period is included. Narrative 11/18/2023 12:00 AM EDT Ordered by an unspecified provider. Scanning Provider MEDIA MGR SCAN EXT O RDR/RSLT * (ABNORMAL) BMP w/fasting Glucose (11/09/2020 6:57 AM EDT) Glucose Fasting 196(H) 65 - 99 mg/dL [facility] Comment: ?Fasting* Glucose Interpretive Criteria Normal ?65-99 mg/dL Impaired Fasting glucose ?100-125 mg/dL Consistent with Diabetes Mellitus ? >or= 126 mg/dL *Fasting is defined as no caloric intake for at least 8 hours In the absence of unequivocal hyperglycemia a plasma glucose value of >or= 126 mg/dL should be repeated on a subsequent day. Diagnosis and Classification of Diabetes Mellitus, Position Statement from the [place] [employer]. ??Diabetes Care, Volume 33, Supplement 1, May 2009 Blood Urea Nitrogen 26(H) 10 - 20 mg/dL [facility] Creatinine 1.64(H) 0.80 - 1.50 mg/dL [facility] Sodium 136 135 - 145 mmol/L [facility] Potassium 4.2 3.5 - 5.0 mmol/L [facility] Comment: Please note: ??Patients with WBC >100,000 may have falsely elevated Potassium levels. ??For accurate Potassium quantification in these patients send serum separator tube (gold top) for subsequent determinations. ??Contact the Clinical Chemistry Laboratory if there are any questions. Chloride 102 98 - 107 mmol/L [facility] Carbon Dioxide 23 22 - 31 mmol/L [facility] Anion Gap 11 5 - 15 mmol/L [facility] Calcium 8.8 8.5 - 10.5 mg/dL [facility] Est Glomerular Filtration Rate 38(L) >=60 mL/min/1. 73 m?? [facility] Comment: This patient? s estimated glomerular filtration rate (eGFR) is between 38 mL/min/1.73 m2 (patients with less muscle mass per kg body weight) and 44 mL/min/1.73 m2 (patients with more muscle mass per kg body weight) as determined by the CKD-EPI equation. Assessment of eGFR is not appropriate when creatinine concentrations are rapidly changing. For clinical decisions where creatinine clearance will affect therapy, a 24-hour urine creatinine clearance may be advised. Assignment of CKD stage 1 - 5 for patients with an eGFR near the transition point between stages may be based on clinical assessment of muscle mass and symptoms in addition to eGFR. Blood 11/09/2020 6:57 AM EDT 11/09/2020 7:35 AM EDT Narrative Resulting Agency Comment Spec In Lab Maximino Mcallister MD CHEMISTRY ORDERABL ES [facility] [place] [address] * (ABNORMAL) Hemoglobin A1c (11/07/2020 8:50 AM EDT) Hemoglobin A1c 11.3(H) 4.3 - 5.6 % [facility] Comment: Reference Range: 4.3 - 5.6% 5.7 - 6.4% - Increased Risk of Developing Diabetes Mellitus >= 6.5% - Consistent with diagnosis of Diabetes Mellitus In the absence of hyperglycemia (i.e. plasma glucose > 200 mg/dL) or classic symptoms of hyperglycemia a repeat measurement of HbA1c should be performed on a separate sample to confirm the diagnosis. Diagnosis and Classification of Diabetes Mellitus, Diabetes Care 2013; 36: Suppl. 1, S64-67 Estimated Average Glucose See note mg/dL [facility] Comment: Estimated Average Glucose not appropriate for patients over 70 years of age. eAG equivalents for HbA1c percentages: HbA1c(%) ?eAG(mg/dL) 6.0 ?126 6.5 ?140 7.0 ?154 7.5 ?169 8.0 ?183 8.5 ?197 9.0 ?212 9.5 ?226 10.0 ? 240 Limitations: The eAG calculation has not been validated on women, individuals below 18 years old and above 70 years old, and individuals with hemoglobinopathies. Additional resources are available on the ADA website. Hu RODRIGUEZ, Faustino J, Sridhar R, et al. ??Translating the A1C assay into estimated average glucose values. ??Diabetes Care 2008:31(8):5707-7874. Blood Venous Draw / Unknown 11/07/2020 8:50 AM EDT 11/07/2020 11:00 AM EDT Narrative Resulting Agency Comment Spec In Lab Evan Sinclair MD CHEMISTRY ORDERABLES Performing Organization Address City/State/[facility] Co de Phone Number [facility] [place] [address] from Last 3 Months or Most Recently Relevant to Health Maintenance Advance Directives * Attempt Cardiopulmonary Resuscitation - Inpatient (Latest Code Status on File) Date Activated Date Inactivated Comments 11/07/2020 7:40 AM 11/09/2020 6:21 PM Question Answer Comments Code Status decision made by: Patient * Full Code Date Activated Date Inactivated Comments 02/03/2017 11:16 AM 02/05/2017 1:50 PM Question Answer Comments Does patient have capacity to make decision: Yes * Full Code Date Activated Date Inactivated Comments 04/12/2011 8:00 AM 04/16/2011 3:06 PM Question Answer Comments Order Status: Initial Order Does patient have decision m aking capacity? Yes, Order is based on Patients wishes. Care Teams Emergency Medicine Physician Assistant Relationship Specialty Start Date End Date Rolando Moise MD [address] [place] [address] PCP - General Family Medicine 09/16/16
--- OUTSIDE RECORDS SUMMARY | 2023-12-21 07:52 | XMS_ITS | Encounter Summary ---
Author Organization [facility] [place] [address] Care Team Providers Care Photovoltaic Installer Name Role Phone Rolando Moise MD Primary Care Provider [phone] Encounter Details Date Type Department Care Team (Late st Contact Info) Description 07/18/2022 Telephone Dermatology at [address] [place] [address] Padmini Maria LPN Social History Tobacco Use Types Packs/Day Years [...] encounter Miscellaneous Notes * Telephone Encounter - Padmini Maria LPN - 07/18/2022 2:25 PM EDT Patient seen by Dr. Eason today. Dr[facility] [place], [place]. Moise's office faxes prescriptions to [phone]. [facility]. documented in this encounter Plan of Treatment Upcoming Encounters Date Type Department Care Team (Latest Contact Info) Description 01/02/2024 1:30 PM EDT Laboratory Appointment Lab [address] [place] [address] 01/02/2024 3:00 PM EDT Office Visit [place] [address] Adam Costa MD [facility] [place] [address] documented as of this encounter Visit Diagnoses Not on filedocumented in this encounter Care Teams Photovoltaic Installer Relationship Specialty Start Date End Date Rolando Moise MD [address] [place] [address] PCP - General Family Medicine 09/16/16 documented as of this encounter
--- OUTSIDE RECORDS SUMMARY | 2023-12-21 07:52 | XMS_ITS | Encounter Summary ---
Author Organization [facility] [place] [address] Care Team Providers Care Cementer Oil Well Name Role Phone Rolando Moise MD Primary Care Provider [phone] Encounter Details Date Type Department Care Team (Late st Contact Info) Description 04/21/2019 Orders Only Vascular Surgery at [place] [id number] Rachel Arenas, OPTICAL ASSISTANT Abdominal aortic aneurysm (AAA) without rupture Social History [...] 1:30 PM EDT Laboratory Appointment Lab [address] [place] [address] 01/02/2024 3:00 PM EDT Office Visit Nephrology [place] [address] Adam Costa MD [facility] [place] [address] documented as of this encounter Visit Diagnoses Diagnosis Abdominal aortic aneurysm (AAA) without rupture documented in this encounter Care Teams [employer] Relationship Specialty Start Date End Date Rolando Moise MD [address] [place] [phone] PCP - General Family Medicine 09/16/16 documented as of this encounter
--- OUTSIDE RECORDS SUMMARY | 2023-12-21 07:52 | XMS_ITS | Encounter Summary ---
Author Organization [facility] [place] [address] Care Team Providers Care Ice Cream Van Vendor Name Role Phone Rolando Moise MD Primary Care Provider [phone] Encounter Details Date Type Department Care Team (Late st Contact Info) Description 05/26/2019 Telephone [place] [phone] Elle Cunningham Social History Tobacco Use Types Packs/Day Years [...] encounter Miscellaneous Notes * Telephone Encounter - Elle Cunningham - 05/26/2019 8:14 AM EST 2 yr f/u, AAA Dup- EVAR Sent for orders 04/09/2019 (still waiting on orders 04/19/2019 ) 05/25/19 orders in ltr sent SLL Have been unable to reach patient. Closing recall. documented in this encounter Plan of Treatment Upcoming Encounters Date Type Department Care Team (Latest Contact Info) Description 01/02/2024 1:30 PM EDT Laboratory Appointment Lab [address] [place] [phone] 01/02/2024 3:00 PM EDT Office Visit [place] [address] Adam Costa MD [facility] [address] documented as of this encounter Visit Diagnoses Not on filedocumented in this encounter Care Teams Ice Cream Van Vendor Relationship Specialty Start Date End Date Rolando Moise MD [address] [place] [address] [place] [address] PCP - General Family Medicine 09/16/16 documented as of this encounter
--- OUTSIDE RECORDS SUMMARY | 2023-12-21 07:52 | XMS_ITS | Encounter Summary ---
Author Organization [facility] Address [facility] [place] [address] Care Team Providers Care Grappler Name Role Phone Rolando Moise MD Primary Care Provider [phone] Reason for Visit * Auth/Cert Specialty Diagnoses / Procedures Referred By Teodoro t Referred To Contact Diagnoses Chest pain nstemi Referral ID Status Reason Start Date Expiration Date Visits Re quested Visits Authorized [id number] 1 1 Encounter Details Date Type Department Care Team (Latest Contact Info) Description 11/07/2020 6:46 AM EDT - 11/09/2020 3:30 PM EDT Hospital Encounter [place] [id number] Maximino Mcallister MD [facility] [place] [address] Chest pain, unspecified type; Abdominal aortic aneurysm (AAA) without rupture; Chronic atrial fibrillation Discharge Disposition: Home Social History Tobacco Use [...] Mass Index 27.84 11/07/2020 6:52 AM EDT documented in this encounter Discharge Summaries * Evan Sinclair MD - 11/09/2020 11:31 AM EDT Images from the original note were not included. Patient Name: Cesar hTompson Patient Age: 84 y.o. Language: [place] Race: White Ethnicity: Not nor Admit date: 11/07/2020 Discharge date and time: 11/09/2020 Attending Physician: No att. providers found Discharge Physician: No att. providers found Follow-up Recommendations for Providers: - Medication affordability - Mr. Thompson is a - [facility] - Mr. Thompson and his significant other were provided with Medication Assistance paperwork - Insulin-Dependent Diabetes; HbA1c 11.3% (11/07/20) - Diabetes educators instructed him and SO about administration of insulin - Discharged with paper work to discuss coverage - Recommended 10u Glargine, 4u at meal time humalog - Atrial Fibrillation/Atrial Flutter (Type 2 Demand NSTEMI) - Started on Amiodarone 400mg BID for 1 week; reduce to 200mg QD - Started on apixaban 2.5mg BID (provided with 30 day coupon) - STOP clopidogrel and ASA Inpatient Provider Contact Information: For questions regarding this document or issues relating to this hospitalization on the Medical Service, please contact your inpatient physician through the [facility] . Issues afterhours and on weekends will be handled by the staff on-call. Discharge Diagnoses (Hospital Problems) and Secondary Diagnoses (Chronic Problems): Active Hospital Problems Diagnosis ??? Type 2 diabetes mellitus ??? Chest pain Resolved Hospital Problems No resolved problems to display. Active Non-Hospital Problems Diagnosis ??? NSTEMI (non-ST elevated myocardial infarction) ??? HTN (hypertension) ??? Diabetes mellitus type 2, noninsulin dependent ??? ASCVD (arteriosclerotic cardiovascular disease) ??? Cardiomyopathy, ischemic ??? AAA (abdominal aortic aneurysm) ??? S/P hernia repair Operations/Major Procedures: Operations: Other Major Procedures: NA History of Presentation: Patient was in usual state of health until the day prior to his ED visit. He developed acute onset of chest pressure with constant sharp substernal pain radiating to his back and neck. The pain was worsened with deep breathing. The pain was not worsened with exertion or relieved with rest. The paindid not resolved which prompted him to come to the ED. ?? He denies nausea, emesis, diaphoresis, lightheadedness, syncope. No chest pain this morning. ?? ED Course: ECG showed atrial flutter and subtle lateral ST depressions. He was hypertensive to 172/112. Creatinine was 2.4 with no known baseline. He could not undergo CT imaging with contrast due toreduced kidney function. He obtained a CT C+A=P without contrast that could not identify major aortic abnormality, but has significant califications in coronary arteries and aorta. No discrepancy between arm blood pressure readings. ?? VS:??36.5?145?19?172/112?97?R/a Troponin:??0.08??(ULN ) ECG:??Sinus tachycardia ??at 142 bpm. Q waves II, III, aVF. Subtle ST depressions in V4-V6, I, aVL. Cr 2.4 GFR 25 ProBNP 522 ?? Hospital Course: #Symptomatic Atrial fibrillation with RVR # NSTEMI type II, # Hypertension # HX of AAA repair with EVAR Because of initial chest pain symptomology and history of AAA, CTA was obtained to rule out aortic dissection and was clear. Pleuritic nature of chest pain also warranted VQ scan to rule out pulmonary embolism and was clear. On HD1, patient was initially in atrial fibrillation with RVR. Metoprolol tartrate dose was increased to 75mg BID to try to slow ventricular rate but was unsuccessful. He wasstarted on digoxin briefly for rate control in the setting of RVR and then switched to rhythm control with amiodarone load. Amiodarone was successful at converting him to normal sinus rhythm. His chest pain resolved as soon as he converted to NSR, suggesting his chest pain was attributable to Type II nSTEMI secondary to the rapid ventricular rate. He was continued on loading dose of Amiodarone (400BID) for remainder of stay with switch to PO formulation on day of discharge. He had one additional 3 hour episode of atrial fibrillation on evening of HD2 and self converted back to NSR (episode not accompanied by chest pain). During his hospital stay, he was continued on his home atorvastatin 40mg. His home Lisinopril was discontinued because of elevated BUN and Cr. His home aspirin, clopidogrel were discontinued due to low suspicion for ACS. He was initially started on heparin drip with initial concern for ACS, then switched to Apixaban 2.5mg BID (lower dosage due to age and elevated Cr) for anticoagulation in the setting of his newly diagnosed atrial fibrillation. His Lisinopril was restarted upon discharge to optimize blood pressure in the setting of DMII (kidney function had continuously improved over hospital course). He was switched to metoprolol succinate 50mg QD for discharge(lowered dose because of low heart rate on day of discharge). DMII Hemoglobin A1c was 11.3% on admission and blood glucose initially in 400s. Started on basal glargine 10u and 5u meal associated subQ insulin with moderate sliding scale. This regimen was able to keepblood glucose between 150 and 220. Patient and his significant other met with Diabetes Education team to learn how to measure blood glucose at home and self-administer insulin. He expressed some resistance and concern about his ability to adhere to an insulin regimen. Patient was discharged with plan to continue outpatient insulin with 5 units with meals and scheduled PCP follow up on Friday (11/15/20). This plan was discussed with Montse and the patient prior to discharge. Case management, social work were both consulted to help with medication support. Close PCP follow-up was made and Curtis Strattonation was provided to attempt to help him ?? Vital Signs at Discharge: BP: 106/69, Heart Rate: 57, Temp: 37 ??C (98.6 ??F), Resp: 20, BMI (Calculated): 27.74 Height: 177.8 cm (5' 10) (11/07/20 0652) Weight: 88 kg (194 lb 0.1 oz) (11/09/20 0548) Functional and Cognitive Status: stable Important Studies and Lab Data: Labs: Last 3 wbc, hgb, hct plt Recent Labs 11/08/20 0023 11/07/20 0850 WBC 14.2* 13.8* HGB 14.2 15.0 HCT 42.2 44.9 PLATELET 175 171 Last 3 Lytes Recent Labs 11/09/20 0657 11/08/20 1707 11/08/20 0023 11/07/20 0850 NA 136 137 136 138 K 4.2 4.4 4.5 4.6 CL 102 100 102 101 CO2 23 25 22 24 BUN 26* -- 23* 26* CREATININE 1.64* -- 1.80* 1.91* Last 3 LFTs Recent Labs 11/07/20 0850 AST 29 ALT 46 ALKPHOS 118 BILITOT 0.8 BILIDIR 0.2 Last Ca, Mg, Phos Recent Labs 11/09/20 0657 11/07/20 0850 CALCIUM 8.8 9.4 PHOS -- 3.3 MAGNESIUM -- 0.94 Last 3 Coags Recent Labs 11/07/20 0850 PT 10.5 INR 0.9 PTT 26 Last 3 ProBNP, Trop, CK Recent Labs 11/07/20 1707 11/07/20 1118 11/07/20 0850 TROPONINT 0.02* 0.02* -- PROBNP -- -- 488* Last 3 TFT Recent Labs 11/07/20 0850 TSH 1.38 Last 3 Lipids No results for input(s): CHLPL, HDL, LDLCHOL, LDLDIRECT, TRIG in the last 7068 hours. Last 3 HgbA1C Recent Labs 11/07/20 0850 HA1C 11.3* Studies: TTE 11/07/20: SUMMARY: 1. The left ventricular chamber size is normal. Mild concentric left ventricular hypertrophy is observed. Global left ventricular systolic function is mildly reduced with an estimated LVEF of 50-55% and diffuse hypokinesis. 2. The right ventricle is normal in size. Right ventricular global systolic function is normal. 3. There is no hemodynamically significant valve disease. 4. Compared to the images of September 2017, LV function is less vigorous. Results for orders placed or performed during the hospital encounter of 11/07/20 XR Chest One View (Exam End: 11/07/2020 8:35 AM) Impression Similar tortuous descending aorta. Thank you for letting us participate in the care of this patient. If you are a health care provider and have any questions regarding this report, please contact the number below. For patients who have questions please contact the health physician primary care sports medicine that requested your imaging first. Electronically signed by: Tyrone Jones MD, [facility] ([phone]), at 11/07/2020 8:[address] Angiogram Chest Abdomen Pelvis w Contrast (Exam End: 11/07/2020 10:10 AM) Impression 1. 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 2. 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 No direct endoleak noted, however, increase in the greatest dimensions of the buckland aneurysm sac of indeterminate etiology. The endograft is widely patent Thank you for letting us participate in the care of this patient. If you are a health care provider and have any questions regarding this report, please contact the number below. For patients who have questions please contact the health physician primary care sports medicine that requested your imaging first. Lung Perfusion Planar (Exam End: 11/07/2020 4:14 PM) Impression No pulmonary embolism. Preliminary report signed by: Sydnie Stewart at 11/07/2020 4:20 PM I have personally reviewed the image(s) and the resident's interpretation and agree with the findings, Migue Francisco MD at 11/07/2020 4:42 PM Thank you for letting us participate in the care of this patient. If you are a health care provider and have any questions regarding this report, please contact the number below. For patients who have questions please contact the health physician primary care sports medicine that requested your imaging first. Electronically signed by: Migue Francisco MD, [facility] ([phone]), at 11/07/2020 4:42 PM Pending Studies and Lab Data: none Discharge Conditions/Prognosis: stable Discharge to: home Updated Allergies/ADRs: No Known Allergies Immunizations Given this Hospitalization: Immunization History Administered Date(s) Administered ??? Influenza PF, Split (High Dose) 02/05/2017 Discharge Medications: Your Medications New Medications Dose Details AMIOdarone 200 mg Tab Commonly known as: Pacerone Take 1 tablet by mouth daily. Take 2 tablet TWICE a DAY for 7days. Then decrease to 1 tablet ONCE aDAY 200 mg Quantity: 30 tablet Refills: 11 apixaban 2.5 mg Tab Commonly known as: Eliquis Take 1 tablet by mouth 2 times daily. 2.5 mg Quantity: 60 tablet Refills: 3 insulin aspart protamine-insulin aspart 70/30 Soln Commonly known as: novoLOG Mix 70-30 Inject 10 Units subcutaneously daily. 10 Units Quantity: 15 mL Refills: 3 insulin glargine Soln Commonly known as: Lantus Inject 10 Units subcutaneously daily. Start taking on: November 10, 2020 10 Units Quantity: 1 vial Refills: 12 * insulin lispro 100 unit/mL Soln Commonly known as: HumaLOG;Admelog Inject 4 Units subcutaneously 3 times daily (with meals). 4 Units Quantity: 1 vial Refills: 12 * insulin lispro Inpn Commonly known as: humaLOG KwikPen Inject 4 Units subcutaneously 3 times daily (with meals). Indications: type 2 diabetes mellitus 4 Units Quantity: 1500 vial Refills: 3 Insulin Syringe-Needle U-100 0.3 mL 31 gauge x 5/16 Syrg 1 Box [place] [facility]; Combo Route) route as needed. 1 Box Quantity: 90 Syringe Refills: 3 * This list has 2 medication(s) that are the same as other medications prescribed for you. Read thedirections carefully, and ask your doctor or other care provider to review them with you. Continued medications with new dosing Dose Details atorvastatin 40 mg Tab Commonly known as: Lipitor Take 1 tablet by mouth every evening. What changed: ?? medication strength ?? how much to take ?? when to take this 40 mg Quantity: 90 tablet Refills: 3 lisinopriL 5 mg Tab Commonly known as: Prinivil;Zestril Take 1 tablet by mouth daily. Start taking on: November 10, 2020 What changed: ?? medication strength ?? how much to take 5 mg Quantity: 90 tablet Refills: 3 metoprolol succinate XL 50 mg Tablet sr Commonly known as: Toprol-XL Take 1 tablet by mouth daily. What changed: ?? medication strength ?? how much to take 50 mg Quantity: 60 tablet Refills: 3 Continued medications, unchanged Dose Details nitroGLYcerin 0.4 mg Subl Commonly known as: Nitrostat Place 1 tablet under the tongue every 5 minutes as needed for Chest pain. 0.4 mg Quantity: 25 tablet Refills: 1 tamsulosin 0.4 mg Cap Commonly known as: Flomax Take 0.4 mg by mouth daily. 0.4 mg Refills: 0 STOPPED Medications aspirin EC 81 mg Tbec clopidogreL 75 mg Tab Commonly known as: Plavix metFORMIN 500 mg Tab Commonly known as: Glucophage Smoking Status at Discharge: Social History Tobacco Use Smoking Status Former Smoker ??? Types: Pipe ??? Quit date: 02/07/2017 ??? Years since quittin.7 Smokeless Tobacco Never Used Last Set of Vitals and range of vitals over past 24 hours: Last value Range last 24 hrs Temperature Temp: 37 ??C (98.6 ??F) Temp: [36.4 ??C (97.5 ??F)-37 ??C (98.6 ??F)] Heart Rate Heart Rate: 57 Heart Rate: [49-103] Blood Pressure BP: 106/69 BP: (106-189)/(60-121) Respiratory Rate Resp: 20 Resp: [11-22] SpO2 SpO2: 93 % SpO2: [93 %-97 %] Code Status at Discharge: Attempt Cardiopulmonary Resuscitation - Inpatient Instructions Given to Patient at Discharge: Patient Instructions Patient Instructions on Discharge to Home Why were you hospitalized? You had chest pain and shortness of breath. This was due to your heart going into a fast and abnormal heart rhythm called atrial fibrillation. You were started on medications to keep your heart in normal sinus rhythm. You were also started on an anticoagulation medication called Apixaban to thin your blood What medications should you take? You spoke to our Case Management team - You are a ; therefore you should be able to get care/medications through the [place] system if you apply for it. - You were provided with paperwork to apply for medication assistance to help you obtain your medications Amiodarone: - Take 1 Tablet TWICE a DAY for ONE WEEK ( Last Dose 11/15 in the evening) - Take 0.5 Tablet ONCE a DAY Apixaban (Elliquis): This is to thin your blood to prevent clots. Atorvastatin (lipitor): this is a cholesterol-lowering medication that helps prevent build up of plaque in your arteries. Take this every evening. Metoprolol (toprol): this is a beta juma, that helps protect your heart. Take this every day. Lisinopril: this is an MYRA inhibitor that also helps protect your heart, as well as help control your blood pressure. Take this every day. Glargine (Lantus): Please inject take 10 units each day Humalog: Please take 4 units with each meal; for a total of 3 times a day When should you call your doctor? - Chest pain, worsening shortness of breath, fatigue with usual exertion, or new rest/night time symptoms. - Weigh yourself daily and record; if you note an increase of more than 2-3 pounds in 2 days, or 5 pounds over a week, contact your health care provider. - If you become short of breath, cannot lie down to sleep, or have swelling in your legs/ankles or abdomen, contact your health care provider. - Call if you have reduced urination during the day or increased urination at night. - Call for signs of increased wound drainage, redness, swelling, or increased pain at the site of your cardiac cath. - Call if you develop a temp >100.5 Who do you call if you have questions or problems? If you have non-emergent questions between now and the time of your follow up appointments: During 8am-5pm Friday through Friday call [phone] to speak with a nurse in the cardiology clinic All other times call [phone] and ask to speak to the die casting supervisor communication signals intelligence. What activities can you do, and what restrictions do you have? Activity level: - No heavy lifting (more than five pounds) for 48 hours; no more than 10 pounds for one week. - You may return to work in 1 week. Use common sense. Don't exhaust yourself. - No hunting, skiing, jogging, snow shoveling, snowmobiling, lawn mowing, swimming, golf or tennis until after your return appointment with your family doctor. - Do not ride motorcycles, tractors or horses until cleared by your doctor. Diet: - Heart healthy: low salt, low fat, low concentrated sweets. Remember to avoid added salt, canned foods, processed foods (ie hot dogs, sausage, cold meats), and foods naturally high in salt, such as potato chips or pizza. Driving: - Per your routine after [address] if you feel dizzy, light headed, or are taking narcotic medications (ie/ Oxycodone, Morphine, Dilaudid, etc). Shower/Bath: - You may shower 24 hours after cardiac catheterization. - You may not sit in water for 5 days (tub bath, hot tub or pool). Wound Care: - Cath site dressing may be removed in 24 hours. Site may be washed with soap/water. A dressing does not need to be reapplied unless irritation occurs with underclothes. If irritation occurs, apply clean band-aid daily. Exercise: - Exercise 5-7 days per week as tolerated with gradual increase to 30 minutes per day. Smoking cessation: - If you are currently a smoker, you are strongly urged to stop smoking! Smoking increases the severity and incidence of heart disease, and is a risk factor for cancer and emphysema. Your health careprovider can provide specific measures to assist you, including nicotine supplements, anti-anxiety meds, and support groups in your community. Who were my doctors while I was in the hospital? Maximino Mcallister MD - Attending [employer] When do I see my doctors next? No future appointments. You will need to follow up with your PCP (Rolando Moise MD at [phone]) within 1 week of discharge - scheduled for FridayNovember 15 @3:40PM You will need to follow up with your Steel [employer] Buster - FridayNovember 28 @1pm - You will go to the 3rd floor [facility] For questions regarding issues relating to your hospitalization on the Cardiology Service, please contact your inpatient physician through the [facility] [employer] ([phone] and ask for pager #[phone]. Issues after hours and on weekends will be handled by the Cardiology staff on-call. General Instructions None Provider Contact Information: MD [address] / [place] [phone] Discharge References/Attachments Diabetes: Blood Sugar Emergencies ([place]) Diabetes: Home Blood Sugar Test ([place]) Diabetes: Single-Dose Insulin Shot ([place]) Beta-Blockers ([place]) Rhythm-Control Medicines: General Info ([place]) documented in this encounter Discharge Instructions * Patient Instructions* Evan Sinclair MD - 11/09/2020 8:35 AM EDT Patient Instructions on Discharge to Home Why were you hospitalized? You had chest pain and shortness of breath. This was due to your heart going into a fast and abnormal heart rhythm called atrial fibrillation. You were started on medications to keep your heart in normal sinus rhythm. You were also started on an anticoagulation medication called Apixaban to thin your blood What medications should you take? You spoke to our Case Management team - You are a ; therefore you should be able to get care/medications through the [place] system if you apply for it. - You were provided with paperwork to apply for medication assistance to help you obtain your medications Amiodarone: - Take 1 Tablet TWICE a DAY for ONE WEEK ( Last Dose 11/15 in the evening) - Take 0.5 Tablet ONCE a DAY Apixaban (Elliquis): This is to thin your blood to prevent clots. Atorvastatin (lipitor): this is a cholesterol-lowering medication that helps prevent build up of plaque in your arteries. Take this every evening. Metoprolol (toprol): this is a beta juma, that helps protect your heart. Take this every day. Lisinopril: this is an MYRA inhibitor that also helps protect your heart, as well as help control your blood pressure. Take this every day. Glargine (Lantus): Please inject take 10 units each day Humalog: Please take 4 units with each meal; for a total of 3 times a day When should you call your doctor? - Chest pain, worsening shortness of breath, fatigue with usual exertion, or new rest/night time symptoms. - Weigh yourself daily and record; if you note an increase of more than 2-3 pounds in 2 days, or 5 pounds over a week, contact your health care provider. - If you become short of breath, cannot lie down to sleep, or have swelling in your legs/ankles or abdomen, contact your health care provider. - Call if you have reduced urination during the day or increased urination at night. - Call for signs of increased wound drainage, redness, swelling, or increased pain at the site of your cardiac cath. - Call if you develop a temp >100.5 Who do you call if you have questions or problems? If you have non-emergent questions between now and the time of your follow up appointments: During 8am-5pm Friday through Friday call [phone] to speak with a nurse in the cardiology clinic All other times call [phone] and ask to speak to the die casting supervisor communication signals intelligence. What activities can you do, and what restrictions do you have? Activity level: - No heavy lifting (more than five pounds) for 48 hours; no more than 10 pounds for one week. - You may return to work in 1 week. Use common sense. Don't exhaust yourself. - No hunting, skiing, jogging, snow shoveling, snowmobiling, lawn mowing, swimming, golf or tennis until after your return appointment with your family doctor. - Do not ride motorcycles, tractors or horses until cleared by your doctor. Diet: - Heart healthy: low salt, low fat, low concentrated sweets. Remember to avoid added salt, canned foods, processed foods (ie hot dogs, sausage, cold meats), and foods naturally high in salt, such as potato chips or pizza. Driving: - Per your routine after [address] if you feel dizzy, light headed, or are taking narcotic medications (ie/ Oxycodone, Morphine, Dilaudid, etc). Shower/Bath: - You may shower 24 hours after cardiac catheterization. - You may not sit in water for 5 days (tub bath, hot tub or pool). Wound Care: - Cath site dressing may be removed in 24 hours. Site may be washed with soap/water. A dressing does not need to be reapplied unless irritation occurs with underclothes. If irritation occurs, apply clean band-aid daily. Exercise: - Exercise 5-7 days per week as tolerated with gradual increase to 30 minutes per day. Smoking cessation: - If you are currently a smoker, you are strongly urged to stop smoking! Smoking increases the severity and incidence of heart disease, and is a risk factor for cancer and emphysema. Your health careprovider can provide specific measures to assist you, including nicotine supplements, anti-anxiety meds, and support groups in your community. Who were my doctors while I was in the hospital? Maximino Mcallister MD - Attending [employer] When do I see my doctors next? No future appointments. You will need to follow up with your PCP (Rolando Moise MD at [phone]) within 1 week of discharge - scheduled for FridayNovember 15 @3:40PM You will need to follow up with your Steel Rod Buster - FridayNovember 28 @1pm - You will go to the 3rd floor [facility] For questions regarding issues relating to your hospitalization on the Cardiology Service, please contact your inpatient physician through the [facility] [employer] Engineer [phone] and ask for pager #[phone]. Issues after hours and on weekends will be handled by the Cardiology staff on-call. * Attachments The following attachments cannot be sent through Care Everywhere. * Diabetes: Blood Sugar Emergencies ([place]) * Diabetes: Home Blood Sugar Test ([place]) * Diabetes: Single-Dose Insulin Shot ([place]) * Beta-Blockers ([place]) * Rhythm-Control Medicines: General Info ([place]) documented in this encounter Medications at Time of Discharge Medication Sig Dispensed Refills Start Date End Date apixaban (Eliquis) 2.5 mg Tablet Take 1 tablet by mouth 2 times daily. 60 tablet 3 11/09/2020 insulin glargine (Lantus) Solution Inject 10 Units subcutaneously daily. 1 vial 12 11/10/2020 insulin lispro (HumaLOG;Admelog) 100 unit/mL Solution Inject 4 Units subcutaneously 3 times daily (with meals). 1 vial 12 11/09/2020 Insulin Syringe-Needle U-100 0.3 mL 31 gauge x 5/16 Syringe 1 [place] [facility] [place]; Combo Route) route as needed. 90 Syringe 3 11/09/2020 insulin lispro (humaLOG KwikPen) Insulin PenIndications:type 2 diabetes mellitus Inject 4 Units subcutaneously 3 times daily (with meals). Indications: type 2 diabetes mellitus 1500 vial 3 11/09/2020 AMIOdarone (Pacerone) 200 mg Tablet Take 1 tablet by mouth daily. Take 2 tablet TWICE a DAY for 7days. Then decrease to 1 tablet ONCE a DAY 30 tablet 11 11/09/2020 insulin aspart protamine-insulin aspart 70/30 (novoLOG Mix 70-30) Solution Inject 10 Units subcutaneously daily. 15 mL 3 11/09/2020 nitroGLYcerin (NITROSTAT) 0.4 mg Tablet, Sublingual Place 1 tablet under the tongue every 5 minutes as needed for Chest pain. 25 tablet 1 02/05/2017 tamsulosin (FLOMAX) 0.4 mg Capsule, Sust. Release 24 hr Take 0.4 mg by mouth daily. atorvastatin (Lipitor) 40 mg Tablet Take 1 tablet by mouth every evening. 90 tablet 3 11/09/2020 07/18/2022 lisinopriL (Prinivil;Zestril) 5 mg Tablet Take 1 tablet by mouth daily. 90 tablet 3 11/10/2020 07/18/2022 metoprolol succinate XL (Toprol-XL) 50 mg Tablet Sustained Release 24 hr Take 1 tablet by mouth daily. 60 tablet 3 11/09/2020 07/18/2022 documented as of this encounter Progress Notes * Shu Fonseca, RN - 11/09/2020 3:30 PM EDT Diabetes Clinical Nurse Specialist Met with Mr. Thompson and his friend, Montse, prior to D/C. Pt will be D/C'd with basal insulin Q AM and a fixed dose of Humalog with meals. Pt is concerned because he lacks prescription coverage. Provided some sample of glucose test strips/lancets and insulin pen needles. Provided a coupon for a free box of Humalog pens. Reviewed hypoglycemia treatment. Encouraged pt to call should questions arise when he gets home. Advised close f/u with his PCP. * Julius Leon RN - 11/09/2020 1:40 PM EDT Discharge teaching provided w pts friend Montse by bedside for diabetes insulin teaching. Injectionteaching also done this morning with patient performing his own injections. Patient planning to follow up w PCP next week. IVs/tele removed. AVS reviewed by MD and RN. Pt verbalized understanding of medications and when to take them. Written information given of new medication. Shu Fonseca to bring gl ucometer kit for discharge. Pt verbalizes understanding of how to test blood sugar; says he has hada glucometer in the past and has tested his blood sugar but has not done it recently. SB w 1st* block on tele this AM. * Sang Cota - 11/09/2020 6:53 AM EDT Images from the original note were not included. Inpatient Cardiology Progress Note Patient Name: Cesar Thompson Date of Admission: 11/07/2020 ( Hospital Day 2 days ) Service: S2 ID: Cesar Thompson is a 84 y.o. male with a history of CAD complicated by NSTEMI s/p Alfonso, ischemiccardiomyopathy (EF most recently 60% in 2018), AAA s/p endovascular repair (04/2011), and poorly controlled type II diabetes mellitus who we treated for type II NSTEMI in the setting of afib/aflutterwith RVR. 24 hr events: - Flipped back into Afib 17:00, converted back to NSR ~20:00 - Met with diabetes education - No acute events overnight ROS: Denies CP and SOB (even during atrial fibrillation episode). No palpitations, orthopnea, dizziness/LH, n/v/abd pain. Telemetry: Atrial fibrillation yesterday evening, resolved ~20:00 Meds: Continuous Infusions: Scheduled Meds: ??? metoprolol succinate XL 50 mg Oral Daily ??? lisinopriL 5 mg Oral Daily ??? insulin glargine 10 Units Subcutaneous Daily ??? insulin lispro 0-8 Units Subcutaneous TID WC ??? apixaban 2.5 mg Oral BID ??? AMIOdarone 400 mg Oral BID ??? atorvastatin 40 mg Oral QPM PRN Meds:.glucose 40% oral geL OR dextrose 10% OR glucagon, nitroGLYcerin Physical Exam: Afebrile, HR as high as 103 while in afib yesterday, BP systolic as high as 189 Last value Range last 24 hrs Temperature Temp: 36.4 ??C (97.5 ??F) Temp: [36.4 ??C (97.5 ??F)-36.7 ??C (98.1 ??F)] Heart Rate Heart Rate: 57 Heart Rate: [49-103] Blood Pressure BP: 106/69 BP: (106-189)/(60-121) Respiratory Rate Resp: 20 Resp: [11-22] SpO2 SpO2: 93 % SpO2: [93 %-97 %] Intake/Output Summary (Last 24 hours) at 11/09/2020 1230 Last data filed at 11/09/2020 0805 Gross per 24 hour Intake 420 ml Output 600 ml Net -180 ml cumulative I/O's since admission: +655.6 Patient Vitals for the past 168 hrs: Weight 11/09/20 0548 88 kg (194 lb 0.1 oz) 11/08/20 0600 87.3 kg (192 lb 8 oz) 11/07/20 0652 87.7 kg (193 lb 5.5 oz) Admit wt: 87.7kg Gen: Resting in bed in NAD; alert, oriented, and appropriately interactive HEENT: MMM, sclera anicteric CV: regular rate and rhythm, normal S1S2, no m/r/g, no JVD appreciated Resp: clear to auscultation bilaterally, no increased work of breathing Abd: nondistended, soft, NT, +BS Ext: warm and well perfused, 1+ pitting edema improved from yesterday (now only to 5 inches above ankles), peripheral pulses full and equal Neuro: no focal deficits noted Labs Recent Labs 11/08/20 0023 11/07/20 0850 WBC 14.2* 13.8* HGB 14.2 15.0 HCT 42.2 44.9 PLATELET 175 171 Recent Labs 11/09/20 0657 11/08/20 1707 11/08/20 0023 11/07/20 0850 NA 136 137 136 138 K 4.2 4.4 4.5 4.6 CL 102 100 102 101 CO2 23 25 22 24 BUN 26* -- 23* 26* CREATININE 1.64* -- 1.80* 1.91* Recent Labs 11/09/20 0657 11/08/20 0023 11/07/20 0850 CALCIUM 8.8 8.8 9.4 MAGNESIUM -- -- 0.94 PHOS -- -- 3.3 Recent Labs 11/09/20 1127 11/09/20 0744 11/09/20 0309 11/09/20 0044 11/08/20202611/08/20 1706 POCGLU 198 183 174 152 225* 161 Imaging/Studies: CT Angiogram Chest Abdomen Pelvis contrast (11/07/2020): 1. 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 2. 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 No direct endoleak noted, however, increase in the greatest dimensions of the buckland aneurysm sac of indeterminate etiology. The endograft is widely patent 3. No filling defects of the pulmonary arteries ?? VQ Scan (11/07/2020): - No perfusion defects - No evidence of pulmonary embolism ?? CXR (11/07/2020): The lung volumes are low. Cardiomediastinal silhouette is unchanged. There is similar tortuous descending aorta. There is minimal right basilar atelectasis. No consolidation. No pulmonary edema. No pneumothorax or pleural effusion. ?? TTE (11/07/2020): 1. The left ventricular chamber size is normal. Mild concentric left ventricular hypertrophy is observed. Global left ventricular systolic function is mildly reduced with an estimated LVEF of 50-55% and diffuse hypokinesis. 2. The right ventricle is normal in size. Right ventricular global systolic function is normal. 3. There is no hemodynamically significant valve disease. 4. Compared to the images of September 2017, LV function is less vigorous. Cardiac Catheterization: None Assessment: Mr. Thompson is our 84 y.o. male with CAD, ischemic cardiomyopathy, and poorly controlled type II diabetes who we treated for type II NSTEMI in the setting of atrial fibrillation/flutter withRVR. He continues to feel well and did not have any chest pain or SOB yesterday even during episode of afib, potentially because his HR was only as high as 103. His blood pressure has been elevated overnight, but heart rate was low this morning, so we dropped Metoprolol dose to 50mg QD and will send home on 5mg Lisinopril. He has PCP follow up on Friday when next BMP can be drawn and Lisinopril can be titrated as necessary. He was medically ready for discharge yesterday afternoon after being switched from IV to PO amiodarone, but because of his complicated social situation and inability to afford medications, we kept him overnight to give us more time to work with case management on discharge planning to ensure a safedischarge. We collected all necessary paperwork his PCP needs to complete for medication assistance. His partner, Montse, came to [facility] this morning to meet with the team and understand the plan. 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 He met with diabetes education yesterday afternoon to help him feel more prepared to administer insulin at home. Montse also received this education about insulin use. Plan: #Type II NSTEMI #Atrial Fibrillation/Flutter with RVR #Hypertension - continue Apixaban 2.5mg BID - continue atorvastatin 40mg - Start lisinopril 5mg - Switch to metop succinate 50mg QD - continue amiodarone 400mg BID PO for one week, then drop to 200mg BID continuously ?? #Type II Diabetes Mellitus - Added 10u insulin glargine yesterday as well as meal associated insulin, much better glucose control (below 200 overnight for the first time since admission) - continue with current insulin regimen and q4hr glucose checks - Met with diabetes education yesterday to better equip for outpatient insulin management # Routine Diet:??Heart healthy DVT Prophylaxis:??apixaban 5mg Code Status:?Attempt Cardiopulmonary Resuscitation - Inpatient Dispo: Discharge Sang Pena Cota, GSOMIII Cardiology S2 (Pager [phone]) Associated attestation - Maximino Mcallister MD - 11/09/2020 1:41 PM EDT I have seen and examined the patient, providing alaniz components as outlined below. I have reviewed the resident???s above note; my evaluation of the patient is below: He is now stable with maintenance of sinus rhythm. His chest pain symptoms are resolved. I believe that these are related temporally and probably causally to his atrial fibrillation. He is on appropriate oral anticoagulation. Blood pressure is well controlled. We have excluded dissection and pulmonary embolus. He is symptomatically markedly improved and ready for discharge. * Adam Fuchs MD - 11/09/2020 6:31 AM EDT Images from the original note were not included. Inpatient Cardiology Progress Note Patient info: Name: Cesar Thompson : 1935 PCP: Rolando Moise MD PCP phone number: [phone] Date of Admission: 11/07/2020 ( Hospital Day 2 days ) Attending:Maximino Mcallister MD ID: Cesar Thompson is a 84 y.o. male w/ PMH of CAD??c/b NSTEMI s/p MINNIE to mLAD and oDiag1 (02/2017), Ischemic myopathy (LV EF 35% after PA to 60% 09/2017),??AAA s/p??endovascular??repair??(04/2011) and DMII, on Hospital Day2 for acute tearing chest pain to back. 24 Hour Events/Subjective: Switched heparin gtt --> apixaban 2.5 BID On po amiodarone to keep in sinus Overnight: converted to A fib on PO amio yesterday afternoon at 5, and back into sinus at 7:30. Hasbeen in sinus at 50-70's since Met with DM educators to set up home insulin. This AM: [place] well, no recurrence of chest pain -- Objective: Vitals Last value Range last 24 hrs Temperature Temp: 36.7 ??C (98.1 ??F) Temp: [36.4 ??C (97.5 ??F)-36.7 ??C (98.1 ??F)] Heart Rate Heart Rate: 63 Heart Rate: [49-103] Blood Pressure BP: 106/60 BP: (106-189)/(60-121) Art Line BP BP (Arterial Line): -- MAP (NBP): [74 mmHg-133 mmHg] Respiratory Rate Resp: 14 Resp: [11-22] SpO2 SpO2: 93 % SpO2: [93 %-97 %] Oxygen Delivery Oxygen Therapy O2 Device: None (Room air) Telemetry: Normal Sinus rhythm 50-70's (A fib [id number]) Intake/Output Summary (Last 24 hours) at 11/09/2020 0631 Last data filed at 11/09/2020 0553 Gross per 24 hour Intake 540 ml Output 400 ml Net 140 ml Patient Vitals for the past 168 hrs: Weight 11/09/20 0548 88 kg (194 lb 0.1 oz) 11/08/20 0600 87.3 kg (192 lb 8 oz) 11/07/20 0652 87.7 kg (193 lb 5.5 oz) Admit wt: 87.7 kg Physical Exam: Gen: in bed in NAD; alert, oriented, conversant HEENT: anicteric, EOMI intact, CV: RRR, no murmurs/rubs/gallops Resp: CTAB, no crackles/wheezes/ronchi, normal work of breathing Abd: normal bowel sounds, soft, non-tender to palpation, no rebound or guarding Ext: 2+ distal pulses, no pedal edema Neuro: no focal deficits noted, CN II-XII grossly intact, moves all extremities spontaneously Skin: no rashes, lesions, or ulcerations noted Lines/Drains/Airways Lines: Peripheral IV Line - Single Lumen 11/07/20 0700 median cubital vein (antecubital fossa), left 18 gauge (Active) Peripheral IV Line - Single Lumen 11/07/20 0205 median cubital vein (antecubital fossa), right 18 gauge (Active) Labs: Recent Labs 11/08/20 0023 11/07/20 0850 WBC 14.2* 13.8* HGB 14.2 15.0 HCT 42.2 44.9 PLATELET 175 171 MCV 91.9 92.2 Recent Labs 11/08/20 1707 11/08/20 0023 11/07/20 1707 11/07/20 0850 NA 137 136 135 138 CL 100 102 104 101 CO2 25 22 20* 24 K 4.4 4.5 4.9 4.6 MAGNESIUM -- -- -- 0.94 PHOS -- -- -- 3.3 CALCIUM -- 8.8 -- 9.4 BUN -- 23* -- 26* CREATININE -- 1.80* -- 1.91* LFTs Recent Labs 11/07/20 0850 PROT 6.7 ALBUMIN 3.9 AST 29 ALT 46 ALKPHOS 118 BILITOT 0.8 BILIDIR 0.2 Coags Recent Labs 11/07/20 0850 INR 0.9 PT 10.5 PTT 26 DDIMER 4,219* Cardiac Enzymes Recent Labs 11/07/20 1707 11/07/20 1118 11/07/20 0850 TROPONINT 0.02* 0.02* -- PROBNP -- -- 488* Endocrine Recent Labs 11/07/20 0850 TSH 1.38 Recent Labs 11/09/20 0309 11/09/20 0044 11/08/20 2027 11/08/20 1706 11/08/20 1450 11/08/20 1203 11/08/20 1016 11/08/20 0740 11/08/20 0503 11/07/20 2347 11/07/20 2024 11/07/20 1705 POCGLU 174 152 225* 161 265* 305* 302* 255* 236* 241* 304* 339* Heme No results for input(s): LDH, HAPTOGLOBIN, URICACID in the last 168 hours. ABG (Arterial Blood Gas) No results found for: PHART, PO2ART, AND0BBF, [id number] Microbiology: Microbiology Results (Last 30 days) No results found for the last 720 hours. Imaging: Results for orders placed or performed during the hospital encounter of 11/07/20 XR Chest One View (Exam End: 11/07/2020 8:35 AM) Impression Similar tortuous descending aorta. Thank you for letting us participate in the care of this patient. If you are a health care provider and have any questions regarding this report, please contact the number below. For patients who have questions please contact the health physician primary care sports medicine that requested your imaging first. Electronically signed by: Tyrone Jones MD, [facility] ([phone]), at 11/07/2020 8:[address] Angiogram Chest Abdomen Pelvis w Contrast (Exam End: 11/07/2020 10:10 AM) Impression 1. 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 2. 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 No direct endoleak noted, however, increase in the greatest dimensions of the buckland aneurysm sac of indeterminate etiology. The endograft is widely patent Thank you for letting us participate in the care of this patient. If you are a health care provider and have any questions regarding this report, please contact the number below. For patients who have questions please contact the health physician primary care sports medicine that requested your imaging first. Lung Perfusion Planar (Exam End: 11/07/2020 4:14 PM) Impression No pulmonary embolism. Preliminary report signed by: Sydnie Stewart at 11/07/2020 4:20 PM I have personally reviewed the image(s) and the resident's interpretation and agree with the findings, Migue Francisco MD at 11/07/2020 4:42 PM Thank you for letting us participate in the care of this patient. If you are a health care provider and have any questions regarding this report, please contact the number below. For patients who have questions please contact the health physician primary care sports medicine that requested your imaging first. Electronically signed by: Migue Francisco MD, [facility] ([phone]), at 11/07/2020 4:42 PM Medications Scheduled Meds: ??? insulin glargine 10 Units Subcutaneous Daily ??? insulin lispro 0-8 Units Subcutaneous TID WC ??? apixaban 2.5 mg Oral BID ??? AMIOdarone 400 mg Oral BID ??? melatonin 6 mg Oral Nightly ??? sodium chloride 0.9 % (flush) 5 mL Intravenous BID ??? atorvastatin 40 mg Oral QPM ??? metoprolol tartrate 75 mg Oral 2 times per day ??? insulin lispro 1-6 Units Subcutaneous Q4H SANTY Continuous Infusions: ??? nitroGLYcerin Stopped (11/07/20 1730) PRN Meds:.acetaminophen, sodium chloride 0.9 % (flush), lidocaine, nitroGLYcerin, metoprolol, glucose 40% oral geL OR dextrose 10% OR glucagon Assessment & Plan: Cesar Thompson is a 84 y.o. male w/ PMH of CAD??c/b NSTEMI s/p MINNIE to mLAD and oDiag1 (02/2017), ICM (LV EF 35% after PA to 60% 09/2017),??AAA s/p??endovascular??repair??(04/2011) on HD# 2 for symptomatic A Fib??w/ NSTEMI type II ?? CTA completed in spite of elevated creatinine due to high pretest probability for aortic dissection. No evidence of dissection or PE on imaging. No evidence of PE on V/Q. Stable trop of 0.02 and no pain since chemical conversion out of A fib. Symptomatic atrial fibrillation is most likely cause fortype II NSTEMI ?? #Symptomatic A fib #nSTEMI type II, # Hypertension - stopped asa, clopidogrel and heparin - Started apixaban 2.5 BID (age + elevated creatinine) - Continue amiodarone for rhythm control - D/C on 400BID for 1 week followed by maitanence 200 BID -continue atorvastatin 40mg QD -Decreased metoprolol succinate dose to 50 succinate -Restart Lisinopril 5mg upon D/C in setting of HTN + DMII DMII -DM management consult - Starting on basal Glargine 10 and 5 meal associated sub Q insulin - Continue sliding scale - Plan to continue insulin outpatient with pens 5 units with meals. - PCP follow up set up. D/C today #Routine Diet: Carb Control diet 60/60/75 CHO counting level 2 Code Status: Attempt Cardiopulmonary Resuscitation - Inpatient Dispo: Pending clinical course Adam Fuchs MD Internal Medicine, PGY-1 Cardiology, S2 11/09/20 6:31 AM Associated attestation - Maximino Mcallister MD - 11/09/2020 11:49 AM EDT I have seen and examined the patient, providing alaniz components as outlined below. I have reviewed the resident???s above note; my evaluation of the patient is below: He is stable and appears prepared for discharge. He is now in sinus rhythm. This is resolved his symptoms and I believe that this is the underlying cause of his admitting complaints. Blood pressure control will require resumption of his MYRA inhibitor. He is on appropriate oral anticoagulation. Are going to load him with amiodarone orally and we have had pharmacy evaluate him for appropriate loading regimen. * Julius Leon RN - 11/08/2020 7:27 PM EDT Pt converted back to a fib at 1720 from sinus luz [place]. PO amio already started. Hypertensive with rates around 90-100. 1 dose of IV metoprolol admin. Team aware of conversion back to afib. Plan to continue PO amio and metoprolol. Pt intermittently agitated. * Shu Fonseca RN - 11/08/2020 2:36 PM EDT Diabetes Clinical Nurse Specialist Met with Mr. Thompson to discuss his diabetes self-management. He reports a Hx diabetes for years that has been treated with metformin. Now with an HbA1c of 11.3% the decision has been made to discharge him on insulin. Pt has not yet given himself an injection. He has a bit of a tremor, so will likely do better with an insulin pen than a syringe. States that he has tested his BG at home in the past, but does not have a glucose meter at home now. Will provide a One Touch Verio Flex starter kit. Encourage pt to practice these skills. Pt lives with a friend who will be here tomorrow. He states that she will be willing to learn aboutinsulin, as well. Will follow. * Sang Cota Jean - 11/08/2020 5:50 AM EDT Images from the original note were not included. Inpatient Cardiology Progress Note Patient Name: Cesar Thompson Date of Admission: 11/07/2020 ( Hospital Day 1 day ) Service: S2 ID: Cesar Thompson is a 84 y.o. male with a history of CAD complicated by NSTEMI s/p Alfonso (to mLAD and oDiag1 02/2017), ischemic cardiomyopathy (LV EF 35% after PA to 60% 09/2017), AAA s/p endovascular repair (04/2011), and poorly controlled type II diabetes mellitus on HD1 for acute tearing pleuritic back and chest pain concerning for aortic dissection vs PE vs ACS. 24 hr events: - CTA for aortic dissection workup; negative - V/Q scan resulted; no perfusion defects; no pulmonary embolism - TTE showed globally reduced LV systolic function (LVEF 50-55%) and diffuse hypokinesis (compared to September 2017). RV systolic function normal - Aflutter with RVR, refractory to repeated doses of metoprolol, started diltiazem drip 3:30pm, switched to Amio load at 5:30pm (scheduled to finish at 17:45 tonight) - No acute events overnight ROS: Denies chest pain, shortness of breath, palpitations, orthopnea, PND, dizziness/LH, N/V and abdominal pain. Telemetry: few PVCs Meds: Continuous Infusions: ??? heparin (porcine) infusion 1,000 Units/hr (11/07/20 1231) ??? nitroGLYcerin Stopped (11/07/20 1730) ??? AMIOdarone 0.5 mg/min (11/08/20 0812) Scheduled Meds: ??? sodium chloride 0.9 % (flush) 5 mL Intravenous BID ??? clopidogreL 75 mg Oral Daily ??? aspirin 81 mg Oral Daily ??? atorvastatin 40 mg Oral QPM ??? metoprolol tartrate 75 mg Oral 2 times per day ??? insulin lispro 1-6 Units Subcutaneous Q4H SANTY PRN Meds:.sodium chloride 0.9 % (flush), lidocaine, nitroGLYcerin, heparin (porcine) AND heparin (porcine) infusion, metoprolol, glucose 40% oral geL OR dextrose 10% OR glucagon Physical Exam: Last value Range last 24 hrs Temperature Temp: 36.8 ??C (98.2 ??F) Temp: [36.4 ??C (97.5 ??F)-36.8 ??C (98.2 ??F)] Heart Rate Heart Rate: (!) 47 Heart Rate: [47-144] Blood Pressure BP: 109/62 BP: (94-149)/(62-111) Respiratory Rate Resp: 19 Resp: [13-27] SpO2 SpO2: 96 % SpO2: [93 %-99 %] Intake/Output Summary (Last 24 hours) at 11/08/2020 0550 Last data filed at 11/08/2020 0400 Gross per 24 hour Intake 1015.6 ml Output 300 ml Net 715.6 ml cumulative I/O's since admission: +715.6mL Patient Vitals for the past 168 hrs: Weight 11/07/20 0652 87.7 kg (193 lb 5.5 oz) Admit wt: 87.7kg Gen: laying in bed in no acute distress; alert, oriented and interactive HEENT: sclera anicteric, mucus membranes moist. CV: regular rate and rhythm, normal S1S2, no murmurs/rubs/gallops, no JVD Resp: clear to ausculation bilaterally, no increased work of breathing Abd: normal active bowel sounds, soft, nontender, nondistended Ext: warm and well-perfused, 1+ pitting edema of LE 8 inches above ankles, peripheral pulses full and equal bilaterally Neuro: no focal deficits noted, moving all four extremities spontaneously Labs Glucose: Between 405 and 236, A1c 11.3% Recent Labs 11/08/20 0023 11/07/20 0850 WBC 14.2* 13.8* HGB 14.2 15.0 HCT 42.2 44.9 PLATELET 175 171 Recent Labs 11/08/20 0023 11/07/20 1707 11/07/20 0850 NA 136 135 138 K 4.5 4.9 4.6 CL 102 104 101 CO2 22 20* 24 BUN 23* -- 26* CREATININE 1.80* -- 1.91* Recent Labs 11/07/20 0850 AST 29 ALT 46 ALKPHOS 118 BILITOT 0.8 BILIDIR 0.2 Recent Labs 11/08/20 0023 11/07/20 0850 CALCIUM 8.8 9.4 MAGNESIUM -- 0.94 PHOS -- 3.3 Recent Labs 11/07/20 0850 INR 0.9 PT 10.5 PTT 26 Recent Labs 11/07/20 1707 11/07/20 1118 TROPONINT 0.02* 0.02* Recent Labs 11/08/20 0503 11/07/20 2347 11/07/20 2024 11/07/20 1705 POCGLU 236* 241* 304* 339* Imaging/Studies: CT Angiogram Chest Abdomen Pelvis contrast (11/07/2020): 1. 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 2. 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 No direct endoleak noted, however, increase in the greatest dimensions of the buckland aneurysm sac of indeterminate etiology. The endograft is widely patent 3. No filling defects of the pulmonary arteries ?? VQ Scan (11/07/2020): - No perfusion defects - No evidence of pulmonary embolism ?? CXR (11/07/2020): The lung volumes are low. Cardiomediastinal silhouette is unchanged. There is similar tortuous descending aorta. There is minimal right basilar atelectasis. No consolidation. No pulmonary edema. No pneumothorax or pleural effusion. ?? TTE (11/07/2020): 1. The left ventricular chamber size is normal. Mild concentric left ventricular hypertrophy is observed. Global left ventricular systolic function is mildly reduced with an estimated LVEF of 50-55% and diffuse hypokinesis. 2. The right ventricle is normal in size. Right ventricular global systolic function is normal. 3. There is no hemodynamically significant valve disease. 4. Compared to the images of September 2017, LV function is less vigorous. Cardiac Catheterization: None Assessment: Cesar Thompson is a 84 y.o. male with a history of CAD complicated by NSTEMI s/p Alfonso (to mLAD and oDiag1 02/2017), ischemic cardiomyopathy (LV EF 35% after PA to 60% 09/2017), AAA s/p endovascular repair (04/2011), and poorly controlled type II diabetes mellitus on HD1 for acute tearingpleuritic back and chest pain. Given the negative CTA and unremarkable VQ scan, aortic dissection an PE have been ruled out. Because his chest pain was temporally related to his atrial fibrillation/flutter with RVR, this is most likely type II NSTEMI. His arrhythmia is now better controlled after beginning the amiodarone load ove rnight. We will continue to load IV through the end of the day and then switch to oral maintenance dosing. We will encourage him to ambulate today to informally stress his heart and test whether or not it reproduces his chest pain. We will discontinue his antiplatelet agents in the setting of low preston spicion for Type I ischemia and will start him on anticoagulation with Apixaban 2.5mg BID for the outpatient setting in the setting of his atrial fibrillation. Plan: #Type II NSTEMI #Atrial Fibrillation/Flutter with RVR #Hypertension - discontinue Clopidogrel 75mg and ASA 81mg because of low concern for Type I ischemia; replace with Apixaban 2.5mg BID - continue atorvastatin 40mg - continue metop tartrate 75mg BID - continue amiodarone IV 0.5mg/minute until 1745 tonight, transition to oral dosing #Type II Diabetes Mellitus - start 10u glargine and meal associated for better control - continue lispro moderate sliding scale - q4hr glucose checks - consult diabetes education to better equip for outpatient insulin management ?? #Routine Diet:??NPO diet (Give Meds) DVT Prophylaxis:??heparin gtt Code Status:?Attempt Cardiopulmonary Resuscitation - Inpatient Dispo: Pending clinical course ?? Sang Cota, GSOMIII Cardiology S2 (Pager [phone]) * Adam Fuchs MD - 11/08/2020 5:27 AM EDT Images from the original note were not included. Inpatient Cardiology Progress Note Patient info: Name: Cesar Thompson : 1935 PCP: Rolando Moise MD PCP phone number: [phone] Date of Admission: 11/07/2020 ( Hospital Day 1 day ) Attending:Maximino Mcallister MD ID: Cesar Thompson is a 84 y.o. male w/ PMH of CAD??c/b NSTEMI s/p MINNIE to mLAD and oDiag1 (02/2017), Ischemic myopathy (LV EF 35% after PA to 60% 09/2017),??AAA s/p??endovascular??repair??(04/2011 on Hospital Day1 for acute tearing chest pain to back. 24 Hour Events/Subjective: Yesterday: CT aorta ruled out dissection V/Q scan no perfusion defects Started on heparin drip + DAPT Converted to sinus from a fib on diltiazem drip Started on amiodarone to keep in sinus -- Overnight: -- This AM:[place] well, no recurrence of chest pain -- Objective: Vitals Last value Range last 24 hrs Temperature Temp: 36.5 ??C (97.7 ??F) Temp: [36.4 ??C (97.5 ??F)-36.8 ??C (98.2 ??F)] Heart Rate Heart Rate: 55 Heart Rate: [47-140] Blood Pressure BP: (!) 138/98 BP: (94-139)/(62-111) Art Line BP BP (Arterial Line): -- MAP (NBP): [74 mmHg-119 mmHg] Respiratory Rate Resp: 16 Resp: [16-27] SpO2 SpO2: 96 % SpO2: [93 %-97 %] Oxygen Delivery Oxygen Therapy O2 Device: None (Room air) Telemetry: Normal Sinus rhythm Intake/Output Summary (Last 24 hours) at 11/08/2020 1024 Last data filed at 11/08/2020 0800 Gross per 24 hour Intake 1135.6 ml Output 300 ml Net 835.6 ml Patient Vitals for the past 168 hrs: Weight 11/08/20 0600 87.3 kg (192 lb 8 oz) 11/07/20 0652 87.7 kg (193 lb 5.5 oz) Admit wt: 87.7 kg Physical Exam: Gen: in bed in NAD; alert, oriented, conversant HEENT: anicteric, EOMI intact, CV: RRR, no murmurs/rubs/gallops Resp: CTAB, no crackles/wheezes/ronchi, normal work of breathing Abd: normal bowel sounds, soft, non-tender to palpation, no rebound or guarding Ext: 2+ distal pulses, no pedal edema Neuro: no focal deficits noted, CN II-XII grossly intact, moves all extremities spontaneously Skin: no rashes, lesions, or ulcerations noted Lines/Drains/Airways Lines: Peripheral IV Line - Single Lumen 11/07/20 0700 median cubital vein (antecubital fossa), left 18 gauge (Active) Peripheral IV Line - Single Lumen 11/07/20 0205 median cubital vein (antecubital fossa), right 18 gauge (Active) Labs: Recent Labs 11/08/20 0023 11/07/20 0850 WBC 14.2* 13.8* HGB 14.2 15.0 HCT 42.2 44.9 PLATELET 175 171 MCV 91.9 92.2 Recent Labs 11/08/20 0023 11/07/20 1707 11/07/20 0850 NA 136 135 138 CL 102 104 101 CO2 22 20* 24 K 4.5 4.9 4.6 MAGNESIUM -- -- 0.94 PHOS -- -- 3.3 CALCIUM 8.8 -- 9.4 BUN 23* -- 26* CREATININE 1.80* -- 1.91* LFTs Recent Labs 11/07/20 0850 PROT 6.7 ALBUMIN 3.9 AST 29 ALT 46 ALKPHOS 118 BILITOT 0.8 BILIDIR 0.2 Coags Recent Labs 11/07/20 0850 INR 0.9 PT 10.5 PTT 26 DDIMER 4,219* Cardiac Enzymes Recent Labs 11/07/20 1707 11/07/20 1118 11/07/20 0850 TROPONINT 0.02* 0.02* -- PROBNP -- -- 488* Endocrine Recent Labs 11/07/20 0850 TSH 1.38 Recent Labs 11/08/20 1016 11/08/20 0740 11/08/20 0503 11/07/20 2347 11/07/20 2024 11/07/20 1705 POCGLU 302* 255* 236* 241* 304* 339* Heme No results for input(s): LDH, HAPTOGLOBIN, URICACID in the last 168 hours. ABG (Arterial Blood Gas) No results found for: PHART, PO2ART, ZVN4ULA, [id number] Microbiology: Microbiology Results (Last 30 days) No results found for the last 720 hours. Imaging: Results for orders placed or performed during the hospital encounter of 11/07/20 XR Chest One View (Exam End: 11/07/2020 8:35 AM) Impression Similar tortuous descending aorta. Thank you for letting us participate in the care of this patient. If you are a health care provider and have any questions regarding this report, please contact the number below. For patients who have questions please contact the health physician primary care sports medicine that requested your imaging first. Electronically signed by: Tyrone Jones MD, [facility] ([phone]), at 11/07/2020 8:[address] Angiogram Chest Abdomen Pelvis w Contrast (Exam End: 11/07/2020 10:10 AM) Impression 1. 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 2. 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 No direct endoleak noted, however, increase in the greatest dimensions of the buckland aneurysm sac of indeterminate etiology. The endograft is widely patent Thank you for letting us participate in the care of this patient. If you are a health care provider and have any questions regarding this report, please contact the number below. For patients who have questions please contact the health physician primary care sports medicine that requested your imaging first. Lung Perfusion Planar (Exam End: 11/07/2020 4:14 PM) Impression No pulmonary embolism. Preliminary report signed by: Sydnie Stewart at 11/07/2020 4:20 PM I have personally reviewed the image(s) and the resident's interpretation and agree with the findings, Migue Francisco MD at 11/07/2020 4:42 PM Thank you for letting us participate in the care of this patient. If you are a health care provider and have any questions regarding this report, please contact the number below. For patients who have questions please contact the health physician primary care sports medicine that requested your imaging first. Electronically signed by: Migue Francisco MD, [facility] ([phone]), at 11/07/2020 4:42 PM Medications Scheduled Meds: ??? insulin glargine 10 Units Subcutaneous Daily ??? sodium chloride 0.9 % (flush) 5 mL Intravenous BID ??? clopidogreL 75 mg Oral Daily ??? aspirin 81 mg Oral Daily ??? atorvastatin 40 mg Oral QPM ??? metoprolol tartrate 75 mg Oral 2 times per day ??? insulin lispro 1-6 Units Subcutaneous Q4H SANTY Continuous Infusions: ??? heparin (porcine) infusion 1,000 Units/hr (11/07/20 1231) ??? nitroGLYcerin Stopped (11/07/20 1730) ??? AMIOdarone 0.5 mg/min (11/08/20 0342) PRN Meds:.acetaminophen, sodium chloride 0.9 % (flush), lidocaine, nitroGLYcerin, heparin (porcine)AND heparin (porcine) infusion, metoprolol, glucose 40% oral geL OR dextrose 10% OR glucagon Assessment & Plan: Cesar Thompson is a 84 y.o. male w/ PMH of CAD??c/b NSTEMI s/p MINNIE to mLAD and oDiag1 (02/2017), ICM (LV EF 35% after PA to 60% 09/2017),??AAA s/p??endovascular??repair??(04/2011) on HD# 2 for symptomatic A Fib??w/ NSTEMI type II ?? Acute chest pain pleuritic with tearing back pain: Dysrhythmia vs. #ACS? vs #Aortic Dissection? vs.#PE? Clinically suspect PE. In A flutter on outside EKG, in atrial fibrillation on tele. CTA completed in spite of elevated creatinine due to high pretest probability for aortic dissection. No evidence of dissection or PE on imaging. No evidence of PE on V/Q. Stable trop of 0.02 and no pain since chemical conversion out of A fib. Symptomatic atrial fibrillation as cause for type II NSTEMI is working diagnosis ?? #Symptomatic A fib #nSTEMI type II, # Hypertension -stop asa, clopidogrel and heparin - Start apixaban 2.5 BID (age + elevated creatinine) - Continue amiodarone for rhythm control, transition to PO - restart home metoprolol increased dose to 75 BID tartrate DMII -DM management consult - Starting on Glargine and meal associated sub Q insulin - continue sliding scale - plan to continue insulin outpatient. D/C tomorrow #Routine Diet: Carb Control diet 60/60/75 CHO counting level 2 Code Status: Attempt Cardiopulmonary Resuscitation - Inpatient Dispo: Pending clinical course Adam Fuchs MD Internal Medicine, PGY-1 Cardiology, S2 11/08/20 10:24 AM Associated attestation - Maximino Mcallister MD - 11/08/2020 4:13 PM EDT I have seen and examined the patient, providing alaniz components as outlined below. I have reviewed the resident???s above note; my evaluation of the patient is below: Chest pain is resolved with resolution of the atrial arrhythmias. Evaluation thus far is unremarkable. We will be treating with oral anticoagulation and amiodarone for suppression of his highly symptomatic atrial fibrillation. He is now on appropriate medical therapy. The major ongoing issue at this point is affordability of medications which we are attempting to address. documented in this encounter H&P Notes * Adam Fuchs MD - 11/07/2020 11:43 AM EDT Images from the original note were not included. Cardiology H&P Patient info: Name: Cesar Thompson : 1935 PCP: Rolando Moise MD PCP phone number: [phone] Date of Admission: 11/07/2020 ( Hospital Day 0 days ) Attending:Maximino Mcallister MD ID: Cesar Thompson is a 84 y.o. male w/ PMH of CAD c/b NSTEMI s/p MINNIE to mLAD and oDiag1 (02/2017),ICM (LV EF 35% after PA to 60% 09/2017), AAA s/p endovascular repair (04/2011) on Hospital Day0 for acute tearing pleuritic back pain. Past Medical History: 04/12/2011: AAA (abdominal aortic aneurysm) 04/12/2011: HTN (hypertension) 04/12/2011: NIDDM (non-insulin dependent diabetes mellitus) 04/12/2011: S/P hernia repair Patient Active Problem List Diagnosis ??? NSTEMI (non-ST elevated myocardial infarction) ??? HTN (hypertension) Overview Note: ??? Diabetes mellitus type 2, noninsulin dependent Overview Note: ??? Chest pain ??? ASCVD (arteriosclerotic cardiovascular disease) ??? Cardiomyopathy, ischemic ??? AAA (abdominal aortic aneurysm) Overview Note: 04/12/11 s/p endograft repair of AAA ??? S/P hernia repair Overview Note: umbilical HPI: Patient was in usual state of health until the day prior to his ED visit. He developed acute onset of chest pressure with constant sharp substernal pain radiating to his back and neck. The pain was worsened with deep breathing. The pain was not worsened with exertion or relieved with rest. The paindid not resolved which prompted him to come to the ED. He denies nausea, emesis, diaphoresis, lightheadedness, syncope. No chest pain this morning. ED Course: ECG showed atrial flutter and subtle lateral ST depressions. He was hypertensive to 172/112. Creatinine was 2.4 with no known baseline. He could not undergo CT imaging with contrast due toreduced kidney function. He obtained a CT C+A=P without contrast that could not identify major aortic abnormality, but has significant califications in coronary arteries and aorta. No discrepancy between arm blood pressure readings. ?? VS: 36.5 145 19 172/112 97 R/a ?? Troponin: 0.08 (ULN ) ?? ECG: Sinus tachycardia at 142 bpm. Q waves II, III, aVF. Subtle ST depressions in V4-V6, I, aVL. ?? Cr 2.4 GFR 25 ?? ProBNP 522 Review of Systems (positives in bold) General: chills, fatigue, fever or night sweats Eye: blurry vision, double vision, loss of vision or photophobia HENT: headaches, sore throat or vertigo Heme/Lymph: Bleeding/bruising, blood clots, jaundice, pallor or swollen lymph nodes Resp: cough, hemoptysis, orthopnea, shortness of breath or wheezing Cardio: chest pain, dyspnea on exertion, edema, loss of consciousness, palpitations, paroxysmal nocturnal dyspnea or shortness of breath Gastro: abdominal pain, blood in stools, constipation, diarrhea, heartburn, hematemesis, melena or nausea/vomiting : dysuria, hematuria or urinary frequency/urgency MSK: joint pain, joint stiffness, joint swelling, muscle pain or muscular weakness Neuro:dizziness, gait disturbance, impaired coordination/balance, memory loss, numbness/tingling, seizures, speech problems, tremors or visual changes Derm: lumps or rash PMH Past Medical History: Diagnosis Date ??? AAA (abdominal aortic aneurysm) 04/12/2011 ??? HTN (hypertension) 04/12/2011 ??? NIDDM (non-insulin dependent diabetes mellitus) 04/12/2011 ??? S/P hernia repair 04/12/2011 PSH Past Surgical History: Procedure Laterality Date ??? PRG PLACEMENT EXTENSION PRGSTHESIS FOR ENDOVASC REPAIR AAA 04/12/2011 @PLACE EXT EVG INTRARENAL AORTIC\ILIAC ARTERY ANEURYSM, [facility] ??? PRO AAA REPAIR, 1ST VESSEL, EXTENSION PROSTH 04/12/2011 @EVG-PLACEMENT, CUFF OR EXT. AORTIC OR ILIAC ANEURYSM REPAIR, GORE performed by ACACIA BRYANT at [facility] OR ??? PRO AAA REPAIR, MODULR BIFUR PROSTH, 2-DOCK 04/12/2011 @EVG, AAA, W\ MODULAR BIFURCATED PROS. W\ 2 DOCKING LIMBS performed by ACACIA BRYANT at [facility] OR ??? PRO AAA REPR, EXPOSE FEMORAL ART, GROIN INCIS 04/12/2011 @EXPOSURE, OPEN FEM. ARTERY FOR ENDOVASCULAR PROSTHESIS, GROIN-FABIANA performed by ACCAIA BRYANT at [facility] OR ? ? PRO ENDOVASC REPAIR INFRARENAL AAA/DISSECTION S&I 04/12/2011 @EVG, INFRARENAL AAA OR DISSECTION, S&I performed by ACACIA BRYANT at [facility] OR Family History No family history on file. Social History Social History Socioeconomic History ??? Marital status: Spouse name: Not on file ??? Number of children: Not on file ??? Years of education: Not on file ??? Highest education level: Not on file Occupational History ??? Not on file Tobacco Use ??? Smoking status: Former Smoker Types: Pipe Quit date: 02/07/2017 Years since quittin.7 ??? Smokeless tobacco: Never Used Substance and Sexual Activity ??? Alcohol use: No ??? Drug use: No ??? Sexual activity: Never Other Topics Concern ??? Do You live alone? No ??? Tobacco in Home Not Asked Social History Narrative ??? Not on file Social Determinants of Health Financial Resource Strain: ??? Difficulty of Paying Living Expenses: Food Insecurity: ??? Worried About Running Out of Food in the Last Year: ??? Ran Out of Food in the Last Year: Transportation Needs: ??? Lack of Transportation (Medical): ??? Lack of Transportation (Non-Medical): Physical Activity: ??? Days of Exercise per Week: ??? Minutes of Exercise per Session: Allergies: No Known Allergies Meds ??? sodium chloride 0.9 % (flush) 5 mL Intravenous BID ??? [START ON 11/08/2020] clopidogreL 75 mg Oral Daily ??? [START ON 11/08/2020] aspirin 81 mg Oral Daily ??? metoprolol tartrate 25 mg Oral Q6H SANTY sodium chloride 0.9 % (flush), lidocaine, nitroGLYcerin, heparin (porcine) AND heparin (porcine) infusion, metoprolol ??? lactated Ringers 75 mL/hr (11/07/20 0859) ??? heparin (porcine) infusion 1,000 Units/hr (11/07/20 1231) Objective: Vitals Last value Range last 24 hrs Temperature Temp: 36.4 ??C (97.5 ??F) Temp: [36.4 ??C (97.5 ??F)-36.7 ??C (98.1 ??F)] Heart Rate Heart Rate: (!) 128 Heart Rate: [78-144] Blood Pressure BP: (!) 136/93 BP: (130-149)/(79-111) Art Line BP BP (Arterial Line): -- MAP (NBP): [91 mmHg-119 mmHg] Respiratory Rate Resp: 19 Resp: [13-27] SpO2 SpO2: 97 % SpO2: [96 %-99 %] Oxygen Delivery Oxygen Therapy O2 Device: None (Room air) No intake or output data in the 24 hours ending 11/07/20 1335 Patient Vitals for the past 168 hrs: Weight 11/07/20 0652 87.7 kg (193 lb 5.5 oz) Admit wt: 87.7 kg Physical Exam: Gen: in bed in NAD. HEENT: anicteric, EOMI intact, CV: irregularly irregular, rapid rate, no murmurs/rubs/gallops Resp: CTAB, no crackles/wheezes/ronchi, normal work of breathing Abd: normal bowel sounds, soft, non-tender to palpation, no rebound or guarding Ext: 2+ distal pulses, no pedal edema. No swelling/tenderness at calves Neuro: no focal deficits noted, CN II-XII grossly intact, moves all extremities spontaneously Psych: cooperative. Skin: no rashes, lesions, or ulcerations noted Lines/Drains/Airways Lines: Peripheral IV Line - Single Lumen 11/07/20 0700 median cubital vein (antecubital fossa), left 18 gauge (Active) Peripheral IV Line - Single Lumen 11/07/20 0205 median cubital vein (antecubital fossa), right 18 gauge (Active) Labs: Recent Labs 11/07/20 0850 WBC 13.8* HGB 15.0 HCT 44.9 PLATELET 171 MCV 92.2 Recent Labs 11/07/20 0850 NA 138 CL 101 CO2 24 K 4.6 MAGNESIUM 0.94 PHOS 3.3 CALCIUM 9.4 BUN 26* CREATININE 1.91* LFTs Recent Labs 11/07/20 0850 PROT 6.7 ALBUMIN 3.9 AST 29 ALT 46 ALKPHOS 118 BILITOT 0.8 BILIDIR 0.2 Coags Recent Labs 11/07/20 0850 INR 0.9 PT 10.5 PTT 26 DDIMER 4,219* Cardiac Enzymes Recent Labs 11/07/20 1118 11/07/20 0850 TROPONINT 0.02* -- PROBNP -- 488* Endocrine Recent Labs 11/07/20 0850 TSH 1.38 No results for input(s): POCGLU in the last 168 hours. Heme No results for input(s): LDH, HAPTOGLOBIN, URICACID in the last 168 hours. ABG (Arterial Blood Gas) No results found for: PHART, PO2ART, [id number], [id number] Microbiology: Microbiology Results (Last 30 days) No results found for the last 720 hours. Imaging: Results for orders placed or performed during the hospital encounter of 11/07/20 XR Chest One View (Exam End: 11/07/2020 8:35 AM) Impression Similar tortuous descending aorta. Thank you for letting us participate in the care of this patient. If you are a health care provider and have any questions regarding this report, please contact the number below. For patients who have questions please contact the health physician primary care sports medicine that requested your imaging first. Electronically signed by: Tyrone Jones MD, [facility] ([phone]), at 11/07/2020 8:[address] Angiogram Chest Abdomen Pelvis w Contrast (Exam End: 11/07/2020 10:10 AM) Impression 1. 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 2. 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 No direct endoleak noted, however, increase in the greatest dimensions of the buckland aneurysm sac of indeterminate etiology. The endograft is widely patent Thank you for letting us participate in the care of this patient. If you are a health care provider and have any questions regarding this report, please contact the number below. For patients who have questions please contact the health physician primary care sports medicine that requested your imaging first. Medications Scheduled Meds: ??? sodium chloride 0.9 % (flush) 5 mL Intravenous BID ??? [START ON 11/08/2020] clopidogreL 75 mg Oral Daily ??? [START ON 11/08/2020] aspirin 81 mg Oral Daily ??? metoprolol tartrate 25 mg Oral Q6H SANTY Continuous Infusions: ??? lactated Ringers 75 mL/hr (11/07/20 0859) ??? heparin (porcine) infusion 1,000 Units/hr (11/07/20 1231) PRN Meds:.sodium chloride 0.9 % (flush), lidocaine, nitroGLYcerin, heparin (porcine) AND heparin (porcine) infusion, metoprolol Assessment & Plan: Cesar Thompson is a 84 y.o. male w/ PMH of CAD c/b NSTEMI s/p MINNIE to mLAD and oDiag1 (02/2017), ICM(LV EF 35% after PA to 60% 09/2017), AAA s/p endovascular repair (04/2011) on HD# 0 for pleuritic back pain with pressure in chest. #Chest pain pleuritic with tearing back pain: #ACS? vs #Aortic Dissection? vs. #PE? Clinically suspect PE. In A flutter on outside EKG, in atrial fibrillation on tele. CTA completed in spite of elevated creatinine due to high pretest probability for aortic dissection. No evidence of dissection allows for heparinization which will treat both PE and ACS which are topof differential. -Showed no evidence of dissection. - D-Dimer elevated 4200- not possible to rule out of PE/dissection. - Lower extremity Duplex - restart home metoprolol increased dose to 75 BID tartrate # Pulmonary Embolism Suspect due to acute onset pleuritic chest pain + atrial fibrillation/flutter.Elevated Creatinine + recent contrast load from CT of aorta makes V/Q scan best option to investigate for PE currently. --V/Q scan. If high risk then CTA- if no evidence of PE or ST changes or troponinemia then can perform diagnostic cath. - Continue aspirin 81 plavix 75 - Continue heparin Gtt #Atrial Fibrillation/Flutter- seen on EKG and Telemetry #Hypertension- - Metoprolol tartrate 75mg BID #Routine Diet: NPO diet (Give Meds) DVT Prophylaxis: heparin gtt Code Status: Attempt Cardiopulmonary Resuscitation - Inpatient Dispo: Pending clinical course Adam Fuchs MD Internal Medicine, PGY-1 Cardiology, M1-S2 11/07/20 1:35 PM Associated attestation - Maximino Mcallister MD - 11/07/2020 3:05 PM EDT I have seen and examined the patient, providing alaniz components as outlined below. I have reviewed the resident???s above note; my evaluation of the patient is below: Differential diagnosis on admission was aortic dissection pulmonary embolus or acute coronary syndrome. We have elected to assess initially for aortic dissection as this would direct therapy emergently in a different direction. Fortunately, his CTA of the aorta shows no evidence of dissection. We will proceed with work-up at this point for pulmonary embolus with a VQ scan since we cannot give anyfurther dye most likely within the next 48 hours except if this were to become an emergency. I am concerned about nephrotoxicity. The VQ scan will help to determine whether the next test will be a coronary angiogram or further evaluation for pulmonary embolus. In the meantime we will treat treating with heparin and guideline directed medical therapy for coronary artery disease. documented in this encounter Miscellaneous Notes * Hospital Course - Sang Cota E - 11/09/2020 1:13 PM EDT #Symptomatic Atrial fibrillation with RVR #nSTEMI type II, # Hypertension Because of initial chest pain symptomology and history of AAA, CTA was obtained to rule out aortic dissection and was clear. Pleuritic nature of chest pain also warranted VQ scan to rule out pulmonary embolism and was clear. On HD1, patient was initially in atrial fibrillation with RVR. Metoprolol tartrate dose was increased to 75mg BID to try to slow ventricular rate but was unsuccessful. He wasstarted on digoxin briefly for rate control in the setting of RVR and then switched to rhythm control with amiodarone load. Amiodarone was successful at converting him to normal sinus rhythm. His chest pain resolved as soon as he converted to NSR, suggesting his chest pain was attributable to Type II nSTEMI secondary to the rapid ventricular rate. He was continued on loading dose of Amiodarone (400BID) for remainder of stay with switch to PO formulation on day of discharge. He had one additional 3 hour episode of atrial fibrillation on evening of HD2 and self converted back to NSR (episode not accompanied by chest pain). During his hospital stay, he was continued on his home atorvastatin 40mg. His home Lisinopril was discontinued because of elevated BUN and Cr. His home aspirin, clopidogrel were discontinued due to low suspicion for ACS. He was initially started on heparin drip for DVT prophylaxis, then switched to Apixaban 2.5mg BID (lower dosage due to age and elevated Cr) for anticoagulation in the setting of his newly diagnosed atrial fibrillation. His home Lisinopril was restarted upon discharge to optimize blood pressure in the setting of DMII (kidney function had continuously improved over hospital course). He was switched to metoprolol succinate 50mg QD for discharge (lowered dose because of low heart rate on day of discharge). DMII Hemoglobin A1c was 11.3% on admission and blood glucose initially in 400s. Started on basal glargine 10u and 5u meal associated subQ insulin with moderate sliding scale. This regimen was able to keepblood glucose between 150 and 220. Patient and his significant other met with Diabetes Education team to learn how to measure blood glucose at home and self-administer insulin. He expressed some resistance and concern about his ability to adhere to an insulin regimen. Patient was discharged with plan to continue outpatient insulin with 5 units with meals and scheduled PCP follow up on Friday (11/15/20). * Care Management Discharge - Penny Bee RN - 11/09/2020 9:36 AM EDT CARE MANAGEMENT FINAL DISCHARGE NOTE Chart reviewed, care reviewed with primary team and at interdisciplinary rounds. Patient is medically ready for discharge to home. Needs for Transition of Care: Plan for discharge is: Home w/o Services Agency Referrals & Follow-up Care: -None. Transportation: family or friend will provide *Montse Wheelchair van/Ambulance? No Functional status prior to admission: Independent Home Environment: Others in the home: alone. Current Living Arrangements: home/apartment/condo. Accessibility Concerns: . Current Functional Ability: Assitive Person DME used at home: none DME Needed at DC: -none Patient is insured through: Primary Insurance: MEDICARE Payor: MEDICARE / Plan: MEDICARE PART A & B / Product Type: *No Product type* / Secondary Insurance: AARP SUPPLEMENT Prescription Coverage: Yes - [employer] Part D Preferred Pharmacy: [id number] - [place], [place] - [address] [place] [address] AT [address] [facility] [address] [place] [phone] This plan was formulated with input from patient, and team. All are in agreement with plan. Penny Bee RN, MSN Character Artist - Cardiology Office of Care Management Pager: [phone] * Care Management - Penny Bee RN - 11/08/2020 12:50 PM EDT OFFICE OF CARE MANAGEMENT PROGRESS NOTE LOS: Hospital Day 1 day Chart reviewed, care reviewed with primary team and at interdisciplinary rounds. Patient continues to meet inpatient level of care related to: cardiac cath planned for today. Also continuing to load with IV amiodarone. Functional status prior to admission: Independent Home Environment: Others in the home: alone. Current Living Arrangements: home/apartment/condo. Accessibility Concerns: . Current Functional Ability: Assitive Person DME used at home: none DME Needed at DC: None Patient is insured through: Primary Insurance: MEDICARE Payor: MEDICARE / Plan: MEDICARE PART A & B / Product Type: *No Product type* / Secondary Insurance: AARP SUPPLEMENT Prescription Coverage: Yes - [facility] ZENT Mei Hatch Preferred Pharmacy: [facility] #[id number] [place], [place] - [address] [place] [address] AT [address] OF [facility] & [address] [phone] Plan for discharge is: Home w/o Services Transportation: family or friend will provide - VENESSA Willard Barriers to discharge: Discharge planning Financial: Financial/insurance Medication - CM met with patient to discuss the possibility of patient assistance programs. Patientexpressed interest. CM printed of patient assistance programs for Eliquis, Levemir and Humalog and gave to MD to fill out MD portion. Patient will need to bring completed paperwork to his PCP follow up appointment to have them fax. Plan going forward: CM will continue to follow and assist with discharge planning and coordination of care as indicated. Anticipated Date of Discharge: 11/10/2020 at 11:00 PM Penny Bee RN, MSN Character Artist - Cardiology Office of Care Management Pager: [phone] * Initial Assessments - Penelope Castle RN - 11/07/2020 2:43 PM EDT Office of Care Management Initial Assessment Penelope Castle RN reviewed record and discussed patient with Care Team. Source of Information: Team, bedside nurse, medical record, and Patient Introduced self/reviewed role; services accepted. Reason for Hospitalization: chest pain Last COVID test: Past medical History: Past Medical History: Diagnosis Date ??? AAA (abdominal aortic aneurysm) 04/12/2011 ??? HTN (hypertension) 04/12/2011 ??? NIDDM (non-insulin dependent diabetes mellitus) 04/12/2011 ??? S/P hernia repair 04/12/2011 Hospitalizations Within the Past 30 Days: no previous admission in last 30 days Current Decision-Making Capacity: Self Advance Care Planning: Attempt Cardiopulmonary Resuscitation - Inpatient <no information> -Advanced Directive: Other (pt states that he has completed them in the past , and that hse has named his S/O Montse as DPOA, however, none are on file at [facility]) If AD's have not been completed pts adult children would be DPOA. He has s/o , Montse who is emergency contact, would be surrogate decision maker per [place] surrogate decision making law. (Only good for 90 days) Any patient receiving care at [facility] must abide by [place] law. The hierarchy for surrogate decision making is: (a) Patient???s spouse, or civil union partner or common law spouse unless there is a divorce proceeding, separation agreement, or restraining order limiting that person???s relationship with the patient. No spouse, pt has s/o (b) Any adult son or daughter of the patient. Pt has adult children (c) Either parent of the patient. (d) Any adult brother or sister of the patient. (e) Any adult grandchild of the patient. (f) Any grandparent of the patient. (g) Any adult aunt, uncle, niece, or nephew of the patient. (h) A close friend of the patient. (i) The agent with financial power of erisa attorney or a conservator appointed in accordance with RSA 464-A. (j) The guardian of the patient???s estate. Current Coping/Education/Information Needs: Coping well with hospital stay and feels updated on issues and plan. Current Functional Ability: Assistive Person Functional Status Prior to Admission: Independent Home Environment: People in home: alone. Current Living Arrangements: home/apartment/condo. Accessibility Concerns: . Current DME: none Home Address confirmed as: [address] [facility] [address] Social & Family Supports: All names listed below confirmed with patient as current and correct Extended Emergency Contact Information Primary Emergency Contact: Montse De Anda Address: [address] [place], [place] [id number] [place] [address] Relation: Friend Current Care Provided by: self Provides Primary Care For: no one Caregiver if needed: significant other (pt lives with his friend, and s/o Montse) Quality of Family relationships: helpful, involved, supportive Community Resources being provided currently: none Behavioral Health History: pt denies any emoation or mental health concerns Substance Use/Abuse confirmed: Social History Tobacco Use Smoking Status Former Smoker ??? Types: Pipe ??? Quit date: 02/07/2017 ??? Years since quittin.7 0 No problems reported 1-2 Low level 3-5 Moderate level 6-8 Substantial level 9- 10 Severe level 0 to 7 points: Low risk 8 to 15 points: Medium risk 16 to 19 points: High risk 20 to 40 points: Addiction likely Other Pertinent/Service Specific Information: none noted Health/Prescription Coverage: Primary Insurance: MEDICARE Payor: MEDICARE / Plan: MEDICARE PART A & B / Product Type: *No Product type* / Secondary Insurance: AARP SUPPLEMENT Prescription Coverage: Yes Preferred Pharmacy: [id number] [place], [place] - [address] [place] [address] AT [address] [facility] [address] [facility] [phone] [place] Status: Patient is a : Yes Are you enrolled in the [facility] for your healthcare?: No Primary Care Provider: Rolando Moise MD [phone] Patient/Caregiver Goals of Treatment: dc to home Potential Needs for Transition of Care: none Agency Referrals: Not Applicable Transportation: no concerns Transportation Anticipated: family or friend will provide Concerns to be Addressed: discharge planning Assessment: Patient is admitted to Cardiology S2 service for eval/assess chest pain. Pt states thathe is indep with all at baseline, drives. He states good support from his s/o, that he lives with. Has supports in place to access the necessary care and or follow up after discharge. Plan: dc to home A member of the Care Management team will continue to monitor progress, follow for continuity of care and assist with transition of care planning. Penelope Castle RN Ext [phone] Pager [phone] * Plan of Care - Marilyn Condon MD - 11/07/2020 8:43 AM EDT Cardiology Brief Plan of Care Note Mr. Thompson presented with chest pressure and tearing pain radiating to his back. His last Cr in our system is from 2017 but we have labs from an outside hospital from today where his Cr is 2.4. There is high enough clinical pretest probability for aortic dissection, and we believe the benefit of contrast dye to work this up outweigh the risk of renal failure. The patient also understands this and accepts the risk. Marilyn Condon, PGY6 Cardiovascular Disease Fellow documented in this encounter Plan of Treatment Upcoming Encounters Date Type Department Care Team (Latest Contact Info) Description 01/02/2024 1:30 PM EDT Laboratory Appointment Lab [address] [place] [address] 01/02/2024 3:00 PM EDT Office Visit [place] [address] Adam Costa MD [facility] [place] [address] documented as of this encounter Procedures Procedure Name Priority Date/Time Associated Diagnosis Comments POCT GLUCOSE Routine 11/09/2020 11:27 AM EDT POCT GLUCOSE Routine 11/09/2020 7:44 AM EDT HC VENIPUNCTURE Routine 11/09/2020 6:57 AM EDT POCT GLUCOSE Routine 11/09/2020 3:09 AM EDT POCT GLUCOSE Routine 11/09/2020 12:44 AM EDT POCT GLUCOSE Routine 11/08/2020 8:27 PM EDT HC VENIPUNCTURE Routine 11/08/2020 5:07 PM EDT POCT GLUCOSE Routine 11/08/2020 5:06 PM EDT POCT GLUCOSE Routine 11/08/2020 2:50 PM EDT POCT GLUCOSE Routine 11/08/2020 12:03 PM EDT POCT GLUCOSE Routine 11/08/2020 10:16 AM EDT POCT GLUCOSE Routine 11/08/2020 7:40 AM EDT POCT GLUCOSE Routine 11/08/2020 5:03 AM EDT HC VENIPUNCTURE STAT 11/08/2020 12:23 AM EDT BMP W/FASTING GLUCOSE Routine 11/08/2020 12:23 AM EDT HEMOGRAM Routine 11/08/2020 12:23 AM EDT DIFFERENTIAL, AUTOMATED Routine 11/08/2020 12:23 AM EDT HC CBC,PLT & AUTO DIFF Routine 07/07/202 1 12:23 AM EDT POCT GLUCOSE Routine 11/07/2020 11:47 PM EDT POCT GLUCOSE Routine 11/07/2020 8:24 PM EDT HC UNFRACTIONATED HEPARIN (HEP UFH) STAT 11/07/2020 6:36 PM EDT HC TROPONIN T STAT 11/07/2020 5:07 PM EDT HC VENIPUNCTURE Routine 11/07/2020 5:07 PM EDT POCT GLUCOSE Routine 11/07/2020 5:05 PM EDT NM LUNG PERFUSION PLANAR Routine 11/07/2020 4:14 PM EDT ECHO COMPLETE Routine 11/07/2020 11:24 AM EDT Chest pain, unspecified type Abdominal aortic aneurysm (AAA) without rupture HC VENIPUNCTURE STAT 11/07/2020 11:18 AM EDT EKG 12-LEAD STAT 11/07/2020 11:14 AM EDT Chest pain, unspecified type CT ANGIOGRAM CHEST ABDOMEN PELVIS W CONTRAST STAT 11/07/2020 10:10 AM EDT HEMOGRAM Routine 11/07/2020 8:50 AM EDT DIFFERENTIAL, AUTOMATED Routine 11/07/2020 8:50 AM EDT HC D-DIMER, QUANTITATIVE Routine 11/07/2020 8:50 AM EDT HC PARTIAL THROMBOPLASTIN TIME Routine 11/07/2020 8:50 AM EDT HC PROTHROMBIN TIME Routine 11/07/2020 8 :50 AM EDT HC CBC,PLT & AUTO DIFF Routine 8:50 AM EDT HC THYROID STIMULATING HORMONE, SERUM Routine 11/07/2020 8:50 AM EDT HC PHOSPHORUS, SERUM Routine 11/07/2020 8:50 AM EDT HC PROBNP Routine 11/07/2020 8:50 AM EDT HC MAGNESIUM, SERUM Routine 11/07/2020 8 :50 AM EDT HEMOGLOBIN A1C Routine 11/07/2020 8:50 AM EDT HEPATIC FUNCTION PANEL Routine 8:50 AM EDT BASIC METABOLIC PANEL Routine 11/07/2020 8:50 AM EDT XR CHEST ONE VIEW STAT 11/07/2020 8:3 5 AM EDT documented in this encounter Results * POCT Glucose (11/09/2020 11:27 AM EDT) Glucose, POC 198 65 - 199 mg/dL [facility] Comment: Supplemental ranges: <140 mg/dL before meals <180 mg/dL all other times of the day Blood 11/09/2020 11:2 7 AM EDT 11/09/2020 11:27 AM EDT Maximino Mcallister MD POINT OF CARE TEST ORDERABLES [facility] [place] [address] * POCT Glucose (11/09/2020 7:44 AM EDT) Glucose, POC 183 65 - 199 mg/dL [facility] Comment: Supplemental ranges: <140 mg/dL before meals <180 mg/dL all other times of the day Blood 11/09/2020 7:44 AM EDT 11/09/2020 7:44 AM EDT Maximino Mcallister MD POINT OF CARE TEST ORDERABLES [facility] [place] [address] * (ABNORMAL) BMP w/fasting Glucose (11/09/2020 6:57 AM EDT) Glucose Fasting 196(H) 65 - 99 mg/dL [facility] Comment: ?Fasting* Glucose Interpretive Criteria Normal [...] of Diabetes Mellitus, Position Statement from the [place] [employer]. ??Diabetes Care, Volume 33, Supplement 1, May 2009 Blood Urea Nitrogen 26(H) 10 - 20 mg/dL [facility] Creatinine 1.64(H) 0.80 - 1.50 mg/dL [facility] Sodium 136 135 - 145 mmol/L [facility] Potassium 4.2 3.5 - 5.0 mmol/L [facility] Comment: Please note: ??Patients with WBC >100,000 may have falsely elevated Potassium levels. ??For accurate Potassium quantification in these patients send serum separator tube (gold top) for subsequent determinations. ??Contact the Clinical Chemistry Laboratory if there are any questions. Chloride 102 98 - 107 mmol/L [facility] Carbon Dioxide 23 22 - 31 mmol/L [facility] Anion Gap 11 5 - 15 mmol/L [facility] Calcium 8.8 8.5 - 10.5 mg/dL [facility] Est Glomerular Filtration Rate 38(L) >=60 mL/min/1. 73 m?? [facility] Comment: This patient? s estimated glomerular [...] Lab Maximino Mcallister MD CHEMISTRY ORDERABL ES Performing Organization Address City/[facility]/ZIP Co de Phone Number [facility] [place] [address] * POCT Glucose (11/09/2020 3:09 AM EDT) Glucose, POC 174 65 - 199 mg/dL [facility] Comment: Supplemental ranges: <140 mg/dL before meals <180 mg/dL all other times of the day Blood 11/09/2020 3:09 AM EDT 11/09/2020 3:09 AM EDT Maximino Mcallister MD POINT OF CARE TEST ORDERABLES [facility] [place] [address] * POCT Glucose (11/09/2020 12:44 AM EDT) Glucose, POC 152 65 - 199 mg/dL [facility] Comment: Supplemental ranges: <140 mg/dL before meals <180 mg/dL all other times of the day Blood 11/09/2020 12:4 4 AM EDT 11/09/2020 12:44 AM EDT Maximino Mcallister MD POINT OF CARE TEST ORDERABLES Performing Organization Address [facility] Co de Phone Number [facility] [place] [address] * (ABNORMAL) POCT Glucose (11/08/2020 8:27 PM EDT) Glucose, POC 225(H) 65 - 199 mg/dL [facility] Comment: Supplemental ranges: <140 mg/dL before meals <180 mg/dL all other times of the day Blood 11/08/2020 8:27 PM EDT 11/08/2020 8:27 PM EDT Maximino Mcallister MD POINT OF CARE TEST ORDERABLES Performing Organization Address [facility] Co de Phone Number [facility] [place] [address] * Electrolytes panel (11/08/2020 5:07 PM EDT) Pathologist [facility] Sodium 137 135 - 145 mmol/L [facility] Potassium 4.4 3.5 - 5.0 mmol/L [facility] Comment: Please note: ??Patients with WBC >100,000 may have falsely elevated Potassium levels. ??For accurate Potassium quantification in these patients send serum separator tube (gold top) for subsequent determinations. ??Contact the Clinical Chemistry Laboratory if there are any questions. Chloride 100 98 - 107 mmol/L [facility] Carbon Dioxide 25 22 - 31 mmol/L [facility] Anion Gap 12 5 - 15 mmol/L [facility] Blood 11/08/2020 5:07 PM EDT 11/08/2020 5:19 PM EDT Narrative Resulting Agency Comment Spec In Lab Maximino Mcallister MD CHEMISTRY ORDERABL ES Performing Organization Address [facility] Co de Phone Number [facility] [place] [address] * POCT Glucose (11/08/2020 5:06 PM EDT) Glucose, POC 161 65 - 199 mg/dL [facility] Comment: Supplemental ranges: <140 mg/dL before meals <180 mg/dL all other times of the day Blood 11/08/2020 5:06 PM EDT 11/08/2020 5:06 PM EDT Maximino Mcallister MD POINT OF CARE TEST ORDERABLES Performing Organization Address [facility] Co de Phone Number [facility] [place] [address] * (ABNORMAL) POCT Glucose (11/08/2020 2:50 PM EDT) Glucose, POC 265(H) 65 - 199 mg/dL [facility] Comment: Supplemental ranges: <140 mg/dL before meals <180 mg/dL all other times of the day Blood 11/08/2020 2:50 PM EDT 11/08/2020 2:50 PM EDT Maximino Mcallister MD POINT OF CARE TEST ORDERABLES Performing Organization Address [facility] Co de Phone Number [facility] [place] [address] * (ABNORMAL) POCT Glucose (11/08/2020 12:03 PM EDT) Glucose, POC 305(H) 65 - 199 mg/dL [facility] Comment: Supplemental ranges: <140 mg/dL before meals <180 mg/dL all other times of the day Blood 11/08/2020 12:0 3 PM EDT 11/08/2020 12:03 PM EDT Maximino Mcallister MD POINT OF CARE TEST ORDERABLES Performing Organization Address [facility] Co de Phone Number [facility] [place] [address] * (ABNORMAL) POCT Glucose (11/08/2020 10:16 AM EDT) Glucose, POC 302(H) 65 - 199 mg/dL [facility] Comment: Supplemental ranges: <140 mg/dL before meals <180 mg/dL all other times of the day Blood 11/08/2020 10:1 6 AM EDT 11/08/2020 10:16 AM EDT Maximino Mcallister MD POINT OF CARE TEST ORDERABLES Performing Organization Address [facility] Co de Phone Number [facility] [place] [address] * (ABNORMAL) POCT Glucose (11/08/2020 7:40 AM EDT) Glucose, POC 255(H) 65 - 199 mg/dL [facility] Comment: Supplemental ranges: <140 mg/dL before meals <180 mg/dL all other times of the day Blood 11/08/2020 7:40 AM EDT 11/08/2020 7:40 AM EDT Maximino Mcallister MD POINT OF CARE TEST ORDERABLES Performing Organization Address [facility] Co de Phone Number [facility] [place] [address] * (ABNORMAL) POCT Glucose (11/08/2020 5:03 AM EDT) Glucose, POC 236(H) 65 - 199 mg/dL [facility] Comment: Supplemental ranges: <140 mg/dL before meals <180 mg/dL all other times of the day Blood 11/08/2020 5:03 AM EDT 11/08/2020 5:03 AM EDT Maximino Mcallister MD POINT OF CARE TEST ORDERABLES Performing Organization Address City/[facility]/ZIP Co de Phone Number [facility] [place] [address] * (ABNORMAL) Differential, Automated (11/08/2020 12:23 AM EDT) Neutrophil % 70.8 % [facility] Neutrophil Absolute 10.06(H) 1.70 - 6.10 x10(3)/ L [facility] Lymph % 17.5 % [facility] Lymphocytes Abs 2.5 0.9 - 3.2 x10(3)/ L [facility] Monocyte % 9.1 % [facility] Monocyte Abs 1.3(H) 0.3 - 0.9 x10(3)/ L [facility] Eos % 1.7 % [facility] Eosinophils Abs 0.2 0.0 - 0.4 x10(3)/[facility] Basophil % 0.5 % [facility] Baso Absolute 0.1 0.0 - 0.1 x10(3)/ L [facility] Immature Gran % 0.40 % [facility] Comment: Immature granulocytes(IG's)percentage and absolute count will include metamyelocytes, myelocytes, and promyelocytes. Blood smears from CBCs yielding IG's will be scanned manually for concordance. If this scan disagrees with the automated IG or if promyelocytes are noted, a manual differential will be performed. Immature Gran Absolute 0.05(H) 0.00 - 0.04 x10(3)/ L [facility] Blood 11/08/2020 12:2 3 AM EDT 11/08/2020 12:27 AM EDT Narrative Resulting Agency Comment Spec In Lab Adam Fuchs MD HEMATOLOGY ORDERABLE S Performing Organization Address City/[facility]/ZIP Co de Phone Number [facility] [place] [address] * (ABNORMAL) Hemogram (11/08/2020 12:23 AM EDT) White Blood Cell 14.2(H) 4.0 - 9.5 x10(3)/[facility] Red Blood Cell 4.59 4.58 - 5.54 x10(6)/[facility] Hemoglobin 14.2 13.7 - 16.5 gm/dL [facility] Hematocrit 42.2 40.5 - 48.5 % [facility] Mean Cell Volume 91.9 82.9 - 93.1 fL [facility] Mean Cell Hemoglobin 30.9 27.5 - 32.1 pg [facility] Mean Cell Hemoglobin Concentration 33.6 32.0 - 35.7 gm/dL [facility] Platelet 175 145 - 357 x10(3)/[facility] RDW Standard Deviation 39.8 36.0 - 45.0 [facility] RDW coefficient of variation 11.9 11.4 - 13.8 % [facility] Mean Platelet Volume 11.1 7.6 - 12.9 [facility] LABORATORY NRBC% auto 0.0 % [facility] NRBC Absolute 0.000 0.000 - 0.000 x10(3)/[facility] LABORATORY Blood 11/08/2020 12:2 3 AM EDT 11/08/2020 12:27 AM EDT Narrative Resulting Agency Comment Spec In Lab Adam Fuchs MD HEMATOLOGY ORDERABLE S [facility] [place] [address] * (ABNORMAL) BMP w/fasting Glucose (11/08/2020 12:23 AM EDT) Glucose Fasting 254(H) 65 - 99 mg/dL [facility] Comment: ?Fasting* Glucose Interpretive Criteria Normal [...] of Diabetes Mellitus, Position Statement from the [place] [employer]. ??Diabetes Care, Volume 33, Supplement 1, May 2009 Blood Urea Nitrogen 23(H) 10 - 20 mg/dL [facility] Creatinine 1.80(H) 0.80 - 1.50 mg/dL [facility] Sodium 136 135 - 145 mmol/L [facility] Potassium 4.5 3.5 - 5.0 mmol/L [facility] Comment: Please note: ??Patients with WBC >100,000 may have falsely elevated Potassium levels. ??For accurate Potassium quantification in these patients send serum separator tube (gold top) for subsequent determinations. ??Contact the Clinical Chemistry Laboratory if there are any questions. Chloride 102 98 - 107 mmol/L [facility] Carbon Dioxide 22 22 - 31 mmol/L [facility] Anion Gap 12 5 - 15 mmol/L [facility] Calcium 8.8 8.5 - 10.5 mg/dL [facility] Est Glomerular Filtration Rate 34(L) >=60 mL/min/1. 73 m?? [facility] Comment: This patient? s estimated glomerular filtration rate (eGFR) is between 34 mL/min/1.73 m2 (patients with less muscle mass per kg body weight) and 39 mL/min/1.73 m2 (patients with more muscle mass [...] and symptoms in addition to eGFR. Blood 11/08/2020 12:2 3 AM EDT 11/08/2020 12:27 AM EDT Narrative Resulting Agency Comment Spec In Lab Maximino Mcallister MD CHEMISTRY ORDERABL ES Performing Organization Address [facility] de Phone Number [facility] [place] [address] * Heparin (unfractionated) Level (11/08/2020 12:23 AM EDT) UF Heparin 0.42 IU/mL [facility] Comment: Guidelines for therapeutic unfractionated heparin levels are summarized below. Heparin (Anti-Xa) levels should be determined in a plasma sample that has been drawn 6 hours after a dose change i.e., steady-state has been reached. DRUG ?Dosing Schedule ? Target Peak Steady-State ?Heparin (Anti-Xa) Levels (Units/mL) Unfractionated ?Continuous infusion ?0.3-0.7 Heparin ?0.3-0.6 for some neurology indications Blood 11/08/2020 12:2 3 AM EDT 11/08/2020 12:27 AM EDT Narrative Resulting Agency Comment Spec In Lab Maximino Mcallister MD HEMATOLOGY ORDERAB LES Performing Organization Address [facility] Co de Phone Number [facility] [place] [address] * (ABNORMAL) POCT Glucose (11/07/2020 11:47 PM EDT) Glucose, POC 241(H) 65 - 199 mg/dL [facility] Comment: Supplemental ranges: <140 mg/dL before meals <180 mg/dL all other times of the day Blood 11/07/2020 11:4 7 PM EDT 11/07/2020 11:47 PM EDT Maximino Mcallister MD POINT OF CARE TEST ORDERABLES Performing Organization Address [facility] de Phone Number [facility] [place] [address] * (ABNORMAL) POCT Glucose (11/07/2020 8:24 PM EDT) Glucose, POC 304(H) 65 - 199 mg/dL [facility] Comment: Supplemental ranges: <140 mg/dL before meals <180 mg/dL all other times of the day Blood 11/07/2020 8:24 PM EDT 11/07/2020 8:24 PM EDT Maximino Mcallister MD POINT OF CARE TEST ORDERABLES Performing Organization Address [facility] de Phone Number [facility] [place] [address] * Heparin (unfractionated) Level (11/07/2020 6:36 PM EDT) UF Heparin 0.38 IU/mL [facility] Comment: Guidelines for therapeutic unfractionated heparin levels are summarized below. Heparin (Anti-Xa) levels should be determined in a plasma sample that has been drawn 6 hours after a dose change i.e., steady-state has been reached. DRUG ?Dosing Schedule ? Target Peak Steady-State ?Heparin (Anti-Xa) Levels (Units/mL) Unfractionated ?Continuous infusion ?0.3-0.7 Heparin ?0.3-0.6 for some neurology indications Blood 11/07/2020 6:36 PM EDT 11/07/2020 6:42 PM EDT Narrative Resulting Agency Comment Spec In Lab Maximion Mcallister MD HEMATOLOGY ORDERAB LES [facility] [place] [address] * (ABNORMAL) Troponin (11/07/2020 5:07 PM EDT) Troponin-T 0.02(H) 0.00 - 0.00 ng/mL [facility] Comment: The 99th percentile for Troponin T is less than 0.01 ng/mL, any detectable cTnT concentration using this assay should be considered elevated. According to the third universal definition of myocardial infarction the following criteria with a clinical presentation consistent with acute myocardial ischemia meets the diagnosis for a myocardial infarction (PA). Detection of a rise and/or fall of cTnT, with at least one value greater than the 99th percentile (> or = 0.01) and with at least one of the following ?? Symptoms of ischemia ?? New or presumed new significant MR-wpytehm-D wave (ST-T) changes or new left bundle branch block (LBBB) ?? Development of pathologic Q waves in the ECG ?? Imaging evidence of new loss of viable myocardium or new regional wall motion abnormality ?? Identification of an intracoronary thrombus by angiography or autopsy Samples for cTnT testing should be obtained serially upon first assessment and again 3 to 6 hours later. If the clinical suspicion is high and previous samples have been negative an additional sample may be indicated. Reference: Third [employer] Definition of Myocardial Infarction. Journal of the [place] [employer] 2012;60:1581-98 Blood 11/07/2020 5:07 PM EDT 11/07/2020 5:16 PM EDT Narrative Resulting Agency Comment Spec In Lab Maximino Mcallister MD CHEMISTRY ORDERABL ES Performing Organization Address [facility] Co de Phone Number [facility] [place] [address] * (ABNORMAL) Electrolytes panel (11/07/2020 5:07 PM EDT) Sodium 135 135 - 145 mmol/L [facility] Potassium 4.9 3.5 - 5.0 mmol/L [facility] Comment: Please note: ??Patients with WBC >100,000 may have falsely elevated Potassium levels. ??For accurate Potassium quantification in these patients send serum separator tube (gold top) for subsequent determinations. ??Contact the Clinical Chemistry Laboratory if there are any questions. Chloride 104 98 - 107 mmol/L [facility] Carbon Dioxide 20(L) 22 - 31 mmol/L [facility] Anion Gap 11 5 - 15 mmol/L [facility] Blood 11/07/2020 5:07 PM EDT 11/07/2020 5:16 PM EDT Narrative Resulting Agency Comment Spec In Lab Maximino Mcallister MD CHEMISTRY ORDERABL ES Performing Organization Address [facility] Co de Phone Number [facility] [place] [address] * (ABNORMAL) POCT Glucose (11/07/2020 5:05 PM EDT) Glucose, POC 339(H) 65 - 199 mg/dL [facility] Comment: Supplemental ranges: <140 mg/dL before meals <180 mg/dL all other times of the day Blood 11/07/2020 5:05 PM EDT 11/07/2020 5:05 PM EDT Maximino Mcallister MD POINT OF CARE TEST ORDERABLES Performing Organization Address [facility]/ZIP Co de [place] [address] * NM Lung Perfusion Planar (11/07/2020 4:14 PM EDT) Anatomical Region Laterality Modality Nuclear Medicine Addenda Addendum by Migue Francisco MD on 11/09/2020 1:21 PM EDT --------ADDENDUM #1-------- CLINICAL HISTORY: ??acute onset of chest pain described as a?pressure as well as sharp sensation. It is located substernally and radiated to back and between scapula and goes through the neck. It is particularly worse on breathing and deep inspiration. ??PE suspected, high prob, contrast contraindicated (Age > 14y Thank you for letting us participate in the care of this patient. ??If you are a health care provider and have any questions regarding this report, please contact the number below. ??For patients who have questions please contact the health physician primary care sports medicine that requested your imaging first. ? Electronically signed by: Migue Francisco MD, [facility] ([phone]), at 11/09/2020 1:16 PM --------ORIGINAL REPORT -------- EXAMINATION: NM LUNG PERFUSION PLANAR CLINICAL HISTORY: PE suspected, high prob, contrast contraindicated (Age > 14y) TECHNIQUE: Following intravenous administration of 4.4 mCi of technetium-99m macro-aggregated albumin, perfusion images of the lungs were obtained in anterior, posterior, oblique, and lateral projections. COMPARISON: CT chest abdomen pelvis and chest radiograph 11/07/2020. FINDINGS: No perfusion defects. IMPRESSION: No pulmonary embolism. Preliminary report signed by: Sydnie Stewart at 11/07/2020 4:20 PM I have personally reviewed the image(s) and the resident's interpretation and agree with the findings, Migue Francisco MD at 11/07/2020 4:42 PM Thank you for letting us participate in the care of this patient. ??If you are a health care provider and have any questions regarding this report, please contact the number below. ??For patients who have questions please contact the health physician primary care sports medicine that requested your imaging first. ? Electronically signed by: Migue Francisco MD, [facility] ([phone]), at 11/07/2020 4:42 PM Addendum by Migue Francisco MD on 11/09/2020 9:48 AM EDT --------ADDENDUM #1-------- CLINICAL HISTORY: ??acute onset of chest pain described as a?pressure as well as sharp sensation. It is located substernally and radiated to back and between scapula and goes through the neck. It is particularly worse on breathing and deep inspiration. ??PE suspected, high prob, contrast contraindicated (Age > 14y --------ORIGINAL REPORT -------- EXAMINATION: NM LUNG PERFUSION PLANAR CLINICAL HISTORY: PE suspected, high prob, contrast contraindicated (Age > 14y) TECHNIQUE: Following intravenous administration of 4.4 mCi of technetium-99m macro-aggregated albumin, perfusion images of the lungs were obtained in anterior, posterior, oblique, and lateral projections. COMPARISON: CT chest abdomen pelvis and chest radiograph 11/07/2020. FINDINGS: No perfusion defects. IMPRESSION: No pulmonary embolism. Preliminary report signed by: Sydnie Stewart at 11/07/2020 4:20 PM I have personally reviewed the image(s) and the resident's interpretation and agree with the findings, Migue Francisco MD at 11/07/2020 4:42 PM Thank you for letting us participate in the care of this patient. ??If you are a health care provider and have any questions regarding this report, please contact the number below. ??For patients who have questions please contact the health physician primary care sports medicine that requested your imaging first. ? Electronically signed by: Migue Francisco MD, [facility] ([phone]), at 11/07/2020 4:42 PM Impressions 11/07/2020 4:42 PM EDT No pulmonary embolism. Preliminary report signed by: Sydnie Stewart at 11/07/2020 4:20 PM I have personally reviewed the image(s) and the resident's interpretation and agree with the findings, Migue Francisco MD at 11/07/2020 4:42 PM Thank you for letting us participate in the care of this patient. ??If you are a health care provider and have any questions regarding this report, please contact the number below. ??For patients who have questions please contact the health physician primary care sports medicine that requested your imaging first. ? Electronically signed by: Migue Francisco MD, [facility] ([phone]), at 11/07/2020 4:42 PM Narrative 11/07/2020 4:42 PM EDT EXAMINATION: NM LUNG PERFUSION PLANAR CLINICAL HISTORY: PE suspected, high prob, contrast contraindicated (Age > 14y) TECHNIQUE: Following intravenous administration of 4.4 mCi of technetium-99m macro-aggregated albumin, perfusion images of the lungs were obtained in anterior, posterior, oblique, and lateral projections. COMPARISON: CT chest abdomen pelvis and chest radiograph 11/07/2020. FINDINGS: No perfusion defects. Procedure Note Migue Francisco MD - 11/07/2020 EXAMINATION: NM LUNG PERFUSION PLANAR CLINICAL HISTORY: PE suspected, high prob, contrast contraindicated (Age >14y) TECHNIQUE: Following intravenous administration of 4.4 mCi of technetium-99m macro-aggregated albumin, perfusion images of the lungs were obtained in anterior, posterior, oblique, and lateral projections. COMPARISON: CT chest abdomen pelvis and chest radiograph 11/07/2020. FINDINGS: No perfusion defects. IMPRESSION No pulmonary embolism. Preliminary report signed by: Sydnie Stewart at 11/07/2020 4:20 PM I have personally reviewed the image(s) and the resident's interpretationand agree with the findings, Migue Francisco MD at 11/07/2020 4:42 PM Thank you for letting us participate in the care of this patient. If youare a health care provider and have any questions regarding this report,please contact the number below. For patients who have questions please contactthe health physician primary care sports medicine that requested your imaging first. Electronically signed by: Migue Francisco MD, [facility]([phone]), at 11/07/2020 4:42 PM Maximino Mcallister MD [facility] ORDERABLES * ECHO COMPLETE (11/07/2020 11:24 AM EDT) Pathologist [facility] EF 50 HEARTLAB SYSTEM Anatomical Region Laterality Modality Other 11/07/2020 Narrative 11/07/2020 12:13 PM EDT Procedure: ?Transthoracic Echocardiogram Patient: ?EDD LEIVA D ?(Age): 1935(84y) Med Rec#: ? [id number] ?Sex: ?M ? Site Loc: ? [facility] ?Ht / Wt: ??178(cm)/88(kg) Pt. Loc: ?Adult Floor ? BSA: ?2.06 Study Date: ?? 11/07/2020 ?Pt. Type: Inpatient Tape: ? Referring: Maximino Mcallister ([id number]) Referring: MI Reading: Eladio Willett ([id number]) Bilingual Hr Generalist: Moisés Estrella RDCS Diagnosis: *Chest pain, unspecified (R07.9) *Abdominal aortic aneurysm, without rupture (I71.4) Rhythm: ? A-Fib BP: ? 130/79 SUMMARY: 1. The left ventricular chamber size is normal. Mild concentric left ventricular hypertrophy is observed. Global left ventricular systolic function is mildly reduced with an estimated LVEF of 50-55% and diffuse hypokinesis. 2. The right ventricle is normal in size. Right ventricular global systolic function is normal. 3. There is no hemodynamically significant valve disease. 4. Compared to the images of September 2017, LV function is less vigorous. Findings ? : Study Quality: ? Adequate Left Ventricle: ? The left ventricular chamber size is normal. ?Mild concentric left ventricular hypertrophy is observed. ?There is mild septal hypertrophy of the left ventricle. ?There is no evidence of LVOT obstruction. ?No ventricular septal defect is visualized. ?Global left ventricular systolic function is mildly reduced. ?The visually estimated left ventricular ejection fraction is ??50-55% with beat to beat variation. ?The quantitative left ventricular ejection fraction by biplane Dowd's method is 47%. ?There are no left ventricular segmental wall motion abnormalities. ?Doppler assessment is consistent with normal left sided filling pressure. Left Atrium: ? The left atrium is normal in size. ?No atrial septal defect is visualized. Right Ventricle: ? The right ventricle is [...] valve appears normal in structure and function. ?There is no evidence of pulmonic regurgitation. Pericardium: ? A trivial pericardial effusion is visualized. ?There is no echo evidence of pericardial tamponade. Aorta: ? There is mild dilatation of the aortic root. ?There is moderate dilatation of the aortic root. 4.3cm ?There is moderate dilatation of the ascending aorta. 4.1cm ?The descending aorta is normal in size. ?The abdominal aorta is not well visualized. Pulmonary Artery: ? The main pulmonary artery appears normal. Venous: ? The inferior vena cava appears dilated. ?There is a greater than 50% respiratory change in the inferior vena cava dimension. Misc: ? There is no hemodynamically significant valve disease. ?See remainder of report for additional findings. ?Two-dimensional echo, spectral Doppler and color Doppler performed. Chambers 2D ?Value ?Units (Range) ? IVSd (2D) ? 1.73 ? cm ? LVPWd (2D) ?1.61 ? cm ? IVS:LVPW ratio (2D) 1.07 ? ratio ? RWT (2D) ?0.81 ? ratio ? RWT PW (2D) ? 0.78 ? ratio ? LVIDd (2D) ?4.13 ? cm ? LVIDs (2D) ?2.8 ?cm ? LVIDd (2D) index ?2 ?cm/m2 ? LVIDs (2D) index ?1.36 ? cm/m2 ? LV FS (2D) ?32.12 ?% ? EF Teichholz (2D) ?? 60.75 ?% ? Ao root diameter (2D4.26 ? cm (2.1 - 3.6) ? Ascending Ao ?4.11 ? cm (2 - 3.5) ? Volumes/Mass ?Value ?Units (Range) ? LA Area 4 CH ?17.9 ? cm2 (<21) ? LA ESV BP (A/L) inde30.04 ?ml/m2 ? RA AREA 4CH ? 15.5 ? cm2 ? LV ESV SP 4CH (MOD) 44.87 ?ml ? LV ESV SP 2CH (MOD) 41 ? ml ? LV EDV BP ? 82.28 ?ml ? LV ESV BP ? 43.28 ?ml ? LV EDV BP index ? 39.9 ? ml/m2 ? LV ESV BP index ? 20.99 ?ml/m2 ? BP EF (MOD) ? 47.4 ? % ? LV mass (2D) ?289.58 ? g ? LV mass (2D) index ??140.43 ? g/m2 ? Diastolic/Systolic Function ?Value ?Units (Range) ? MV E-wave Vmax ?0.89 ? m/sec ? LV septal e' Vmax ?? 0.07 ? m/sec ? LV lateral e' Vmax ??0.07 ? m/sec ? LV average e' Vmax ??0.07 ? m/sec ? LV E:e' septal ratio12.68 ?ratio ? LV E:e' lateral rati12.68 ?ratio ? LV average E:e' rati12.68 ?ratio ? Aortic Valve ?Value ?Units (Range) ? LVOT diameter ? 2.32 ? cm ? LVOT Vmax ? 0.65 ? m/sec ? LVOT VTI ?9.7 ?cm ? LVOT peak gradient ??1.71 ? mmHg ? LVOT mean gradient ??1.19 ? mmHg ? SV LVOT ? 41 ? ml ? CO LVOT ? 4.47 ? l/min ? Cardiac index ? 2.17 ? l/min/m2 ? Tricuspid Valve ?Value ?Units (Range) ? TR Vmax ? 2.28 ? m/sec ? TR peak gradient ?20.81 ?mmHg ? RAP ? 8 ?mmHg ? RVSP ?29 ? mmHg ? Wall Motion: Segment Name ?Rest ? Base-Anteroseptal ?? Normal ? Base-Anterior ? Normal ? Base-Anterolateral ??Normal ? Base-Posterolateral Normal ? Base-Inferior ? Normal ? Base-Inferoseptal ?? Normal ? Mid-Anteroseptal ?Normal ? Mid-Anterior ?Normal ? Mid-Anterolateral ?? Normal ? Mid-Posterolateral ??Normal ? Mid-Inferior ?Normal ? Mid-Inferoseptal ?Normal ? [place]-Septal ? Normal ? [place]-Anterior ? Normal ? [place]-Lateral ?Normal ? [place]-Inferior ? Normal ? [place]-Tip ?Normal ? This report has been electronically signed by: Eladio Willett M.D. ? 11/07/2020 12:13:06 Images reviewed and interpretation verified [facility] Procedure Note Eladio Willett MD - 11/07/2020 Procedure: Transthoracic Echocardiogram Patient: EDD Hatch (Age): 1935(84y) Med Rec#: [id number] Sex: M Site Loc: [facility] [place] Ht / Wt: 178(cm)/88(kg) Pt. Loc: Adult Floor BSA: 2.06 Study Date: 11/07/2020 Pt. Type: Inpatient Tape: Referring: Maximino Mcallister ([id number]) Referring: MI Reading: Eladio Willett ([id number]) Bilingual Hr Generalist: Moisés Estrella [facility] Diagnosis: *Chest pain, unspecified (R07.9) *Abdominal aortic aneurysm, without rupture (I71.4) Rhythm: A-Fib BP: 130/79 SUMMARY: 1. The left ventricular chamber size is normal. Mild concentric left ventricular hypertrophy is observed. Global left ventricular systolic function is mildly reduced with an estimated LVEF of 50-55% and diffuse hypokinesis. 2. The right ventricle is normal in size. Right ventricular global systolic function is normal. 3. There is no hemodynamically significant valve disease. 4. Compared to the images of September 2017, LV function is less vigorous. Findings : Study Quality: Adequate Left Ventricle: The left ventricular chamber size is normal. Mild concentric left ventricular hypertrophy is observed. There is mild septal hypertrophy of the left ventricle. There is no evidence of LVOT obstruction. No ventricular septal defect is visualized. Global left ventricular systolic function is mildly reduced. The visually estimated left ventricular ejection fraction is 50-55% with beat to beat variation. The quantitative left ventricular ejection fraction by biplane Dowd's method is 47%. There are no left ventricular segmental wall motion abnormalities. Doppler assessment is consistent with normal left sided filling pressure. Left Atrium: The left atrium is normal in size. No atrial septal defect is visualized. Right Ventricle: The right ventricle is normal [...] valve appears normal in structure and function. There is no evidence of pulmonic regurgitation. Pericardium: A trivial pericardial effusion is visualized. There is no echo evidence of pericardial tamponade. Aorta: There is mild dilatation of the aortic root. There is moderate dilatation of the aortic root. 4.3cm There is moderate dilatation of the ascending aorta. 4.1cm The descending aorta is normal in size. The abdominal aorta is not well visualized. Pulmonary Artery: The main pulmonary artery appears normal. Venous: The inferior vena cava appears dilated. There is a greater than 50% respiratory change in the inferior vena cava dimension. Misc: There is no hemodynamically significant valve disease. See remainder of report for additional findings. Two-dimensional echo, spectral Doppler and color Doppler performed. Chambers 2D Value Units (Range) IVSd (2D) 1.73 cm LVPWd (2D) 1.61 cm IVS:LVPW ratio (2D) 1.07 ratio RWT (2D) 0.81 ratio RWT PW (2D) 0.78 ratio LVIDd (2D) 4.13 cm LVIDs (2D) 2.8 cm LVIDd (2D) index 2 cm/m2 LVIDs (2D) index 1.36 cm/m2 LV FS (2D) 32.12 % EF Teichholz (2D) 60.75 % Ao root diameter (2D4.26 cm (2.1 - 3.6) Ascending Ao 4.11 cm (2 - 3.5) Volumes/Mass Value Units (Range) LA Area 4 CH 17.9 cm2 (<21) LA ESV BP (A/L) inde30.04 ml/m2 RA AREA 4CH 15.5 cm2 LV ESV SP 4CH (MOD) 44.87 ml LV ESV SP 2CH (MOD) 41 ml LV EDV BP 82.28 ml LV ESV BP 43.28 ml LV EDV BP index 39.9 ml/m2 LV ESV BP index 20.99 ml/m2 BP EF (MOD) 47.4 % LV mass (2D) 289.58 g LV mass (2D) index 140.43 g/m2 Diastolic/Systolic Function Value Units (Range) MV E-wave Vmax 0.89 m/sec LV septal e' Vmax 0.07 m/sec LV lateral e' Vmax 0.07 m/sec LV average e' Vmax 0.07 m/sec LV E:e' septal ratio12.68 ratio LV E:e' lateral rati12.68 ratio LV average E:e' rati12.68 ratio Aortic Valve Value Units (Range) LVOT diameter 2.32 cm LVOT Vmax 0.65 m/sec LVOT VTI 9.7 cm LVOT peak gradient 1.71 mmHg LVOT mean gradient 1.19 mmHg SV LVOT 41 ml CO LVOT 4.47 l/min Cardiac index 2.17 l/min/m2 Tricuspid Valve Value Units (Range) TR Vmax 2.28 m/sec TR peak gradient 20.81 mmHg RAP 8 mmHg RVSP 29 mmHg Wall Motion: Segment Name Rest Base-Anteroseptal Normal Base-Anterior Normal Base-Anterolateral Normal Base-Posterolateral Normal Base-Inferior Normal Base-Inferoseptal Normal Mid-Anteroseptal Normal Mid-Anterior Normal Mid-Anterolateral Normal Mid-Posterolateral Normal Mid-Inferior Normal Mid-Inferoseptal Normal Kan[place]-Septal Normal [place]-Anterior Normal [place]-Lateral Normal [place]-Inferior Normal [place]-Tip Normal This report has been electronically signed by: Eladio Gael Willett M.D. 11/07/2020 12:13:06 Images reviewed and interpretation verified [facility] Cardiac Ultrasound [facility] Maximino Mcallister MD ECHO ORDERABLES * (ABNORMAL) Troponin (11/07/2020 11:18 AM EDT) Troponin-T 0.02(H) 0.00 - 0.00 ng/mL [facility] Comment: The 99th percentile for Troponin T is less than 0.01 ng/mL, any detectable cTnT concentration using this assay should be considered elevated. According to the third universal definition of myocardial infarction the following criteria with a clinical presentation consistent with acute myocardial ischemia meets the diagnosis for a myocardial infarction (PA). Detection of a rise and/or fall of cTnT, with at least one value greater than the 99th percentile (> or = 0.01) and with at least one of the following ?? Symptoms of ischemia ?? New or presumed new significant HL-bbklepb-Q wave (ST-T) changes or new left bundle branch block (LBBB) ?? Development of pathologic Q waves in the ECG ?? Imaging evidence of new loss of viable myocardium or new regional wall motion abnormality ?? Identification of an intracoronary thrombus by angiography or autopsy Samples for cTnT testing should be obtained serially upon first assessment and again 3 to 6 hours later. If the clinical suspicion is high and previous samples have been negative an additional sample may be indicated. Reference: Third [employer] Definition of Myocardial Infarction. Journal of the [employer] [employer] 2012;60:1581-98 Blood 11/07/2020 11:1 8 AM EDT 11/07/2020 12:02 PM EDT Narrative Resulting Agency Comment Spec In Lab Maximino Mcallister MD CHEMISTRY ORDERABL ES Performing Organization Address [facility] Co de Phone Number [facility] [place] [place] [address] * EKG 12 Lead (11/07/2020 11:14 AM EDT) Ventricular rate 108 BPM MUSE SYSTEM QRS Duration 80 ms MUSE SYSTEM Q-T Interval 354 ms MUSE SYSTEM QTC Calculated (Bezet) 474 ms MUSE SYSTEM Calculated R [place] 43 degrees MUSE SYSTEM Calculated T [place] 101 degrees MUSE SYSTEM INTERPRETATION Atrial fibrillation with rapid ventricular response Nonspecific ST and T wave abnormality Abnormal ECG When compared with ECG of 10-MAR-2017 14:33, Atrial fibrillation has replaced Sinus rhythm Vent. rate has increased BY ??37 BPM Confirmed by MD Katherine, Truong ([id number]) on 11/07/2020 12:02:06 PM MUSE SYSTEM 11/07/2020 11:1 4 AM EDT 11/07/2020 12:02 PM EDT Maximino Mcallister MD ECG ORDERABLES Performing Organization Address [facility] Co de Phone Number MUSE SYSTEM * CT Angiogram Chest Abdomen Pelvis w Contrast (11/07/2020 10:10 AM EDT) Anatomical Region Laterality Modality Abdomen, Chest Computed Tomogra phy 11/07/2020 10:1 1 AM EDT Impressions 11/07/2020 11:03 AM EDT 1. 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 2. 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 No direct endoleak noted, however, increase in the greatest dimensions of the buckland aneurysm sac of indeterminate etiology. The endograft is widely patent Thank you for letting us participate in the care of this patient. ??If you are a health care provider and have any questions regarding this report, please contact the number below. ??For patients who have questions please contact the health physician primary care sports medicine that requested your imaging first. ? Narrative 11/07/2020 11:03 AM EDT EXAMINATION: CT ANGIOGRAM CHEST ABDOMEN PELVIS W CONTRAST CLINICAL HISTORY: Thoracic aortic aneurysm suspected, initial exam Previous abdominal aortic aneurysm s/p endovascular repair; tearing chest pain with elevated BP and TECHNIQUE: Helical CT angiogram of the chest, abdomen and pelvis was performed following the intravenous administration of contrast. 75 cc of Omnipaque 350. Maximum intensity projection (MIP) were reformatted. 3-D images were generated on an independent workstation. COMPARISON: CT angiogram of the abdomen and pelvis from 08/11/2014 FINDINGS: VASCULAR FINDINGS Heart: Mild cardiomegaly with mild pericardial effusion Thoracic aorta: Ectasia of the thoracic aorta, measuring approximately 4.2 cm in maximal diameter as measured in the ascending aorta at the level of the RIGHT pulmonary artery. No thoracic aortic dissection. Great vessel origins: No stenosis. Pulmonary arteries: No central filling defects. 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 Stable position of the endograft. The bifurcated limbs of the endograft are widely patent and terminate in the common iliac arteries. No endoleak. The greatest dimensions of buckland aneurysm sac have increased, measuring 7.2 x 8.5 cm, compared to 5.6 x 7.7 cm previously. Celiac axis: Widely patent. SMA: Widely patent. Right renal artery: Proximal moderate stenosis Left renal artery: Widely patent. JED: Proximally excluded Right: Common iliac artery: Widely patent. External iliac artery: Widely patent. Internal iliac artery: Widely patent. Common femoral artery: Widely patent. Left: Common iliac artery: Widely patent. External iliac artery: Widely patent. Internal iliac artery: Widely patent. Common femoral artery: Widely patent. NON-VASCULAR FINDINGS Lungs and large airways: Mild bibasilar focal atelectasis Pleura: No effusion. Lymph nodes: No enlarged lymph nodes. Mediastinum and rebeca: Normal. Liver: Normal. Bile ducts: Nondilated. Gallbladder: No calcified gallstones. Normal caliber wall. Pancreas: Normal. Spleen: Normal. Adrenals: Normal. Kidneys: Mild to moderate bilateral cortical thinning. Decreased size of a simple cyst noted in the lower pole the RIGHT kidney, measuring 1.4 cm, compared to 2.2 cm previously. Stable small simple cyst lower pole LEFT kidney. No collecting system obstruction bilaterally Urinary Bladder: Normal. Lymph Nodes: No enlarged lymph nodes. Bowel: Colonic diverticulosis without acute diverticulitis Peritoneum and mesentery: No ascites, free air, or loculated fluid collection. No mesenteric inflammation. Reproductive Organs: Mild enlargement of the prostate gland Abdominal Wall: Small LEFT fat-containing inguinal hernia Osseous structures: No significant findings. Procedure Note Isac Smith MD - 11/07/2020 EXAMINATION: CT ANGIOGRAM CHEST ABDOMEN PELVIS W CONTRAST CLINICAL HISTORY: Thoracic aortic aneurysm suspected, initial exam Previous abdominal aortic aneurysm s/p endovascular repair; tearing chestpain with elevated BP and TECHNIQUE: Helical CT angiogram of the chest, abdomen and pelvis wasperformed following the intravenous administration of contrast. 75 cc of Rleiahtil862. Maximum intensity projection (MIP) were reformatted. 3-D images weregenerated on an independent workstation. COMPARISON: CT angiogram of the abdomen and pelvis from 08/11/2014 FINDINGS: VASCULAR FINDINGS Heart: Mild cardiomegaly with mild pericardial effusion Thoracic aorta: Ectasia of the thoracic aorta, measuring approximately 4.2cm in maximal diameter as measured in the ascending aorta at the level of theRIGHT pulmonary artery. No thoracic aortic dissection. Great vessel origins: No stenosis. Pulmonary arteries: No central filling defects. 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 Stable position of the endograft.The bifurcated limbs of the endograft are widely patent and terminate in thecommon iliac arteries. No endoleak. The greatest dimensions of buckland aneurysmsac have increased, measuring 7.2 x 8.5 cm, compared to 5.6 x 7.7 cm previously. Celiac axis: Widely patent. SMA: Widely patent. Right renal artery: Proximal moderate stenosis Left renal artery: Widely patent. JED: Proximally excluded Right: Common iliac artery: Widely patent. External iliac artery: Widely patent. Internal iliac artery: Widely patent. Common femoral artery: Widely patent. Left: Common iliac artery: Widely patent. External iliac artery: Widely patent. Internal iliac artery: Widely patent. Common femoral artery: Widely patent. NON-VASCULAR FINDINGS Lungs and large airways: Mild bibasilar focal atelectasis Pleura: No effusion. Lymph nodes: No enlarged lymph nodes. Mediastinum and rebeca: Normal. Liver: Normal. Bile ducts: Nondilated. Gallbladder: No calcified gallstones. Normal caliber wall. Pancreas: Normal. Spleen: Normal. Adrenals: Normal. Kidneys: Mild to moderate bilateral cortical thinning. Decreased size ofa simple cyst noted in the lower pole the RIGHT kidney, measuring 1.4 cm,compared to 2.2 cm previously. Stable small simple cyst lower pole LEFT kidney.No collecting system obstruction bilaterally Urinary Bladder: Normal. Lymph Nodes: No enlarged lymph nodes. Bowel: Colonic diverticulosis without acute diverticulitis Peritoneum and mesentery: No ascites, free air, or loculated fluidcollection. No mesenteric inflammation. Reproductive Organs: Mild enlargement of the prostate gland Abdominal Wall: Small LEFT fat-containing inguinal hernia Osseous structures: No significant findings. IMPRESSION 1. 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 2. As noted previously post endograft repair of an infra renal abdominalaortic aneurysm. No direct endoleak noted, however, increase in the greatestdimensions of the buckland aneurysm sac of indeterminate etiology. The endograft iswidely patent Thank you for letting us participate in the care of this patient. If youare a health care provider and have any questions regarding this report,please contact the number below. For patients who have questions please contactthe health physician primary care sports medicine that requested your imaging first. Maximino Mcallister MD IMG CT ORDERABLES * (ABNORMAL) Hemoglobin A1c (11/07/2020 8:50 AM EDT) Hemoglobin A1c 11.3(H) 4.3 - 5.6 % [facility] Comment: Reference Range: 4.3 - 5.6% [...] Mellitus, Diabetes Care 2013; 36: Suppl. 1, F37-05 Estimated Average Glucose See note mg/dL [facility] Comment: Estimated Average Glucose not appropriate [...] into estimated average glucose values. ??Diabetes Care 2008:31(8):6106-0327. Blood Venous Draw / Unknown 11/07/2020 8:50 AM EDT 11/07/2020 11:00 AM EDT Narrative Resulting Agency Comment Spec In Lab Evan Sinclair MD CHEMISTRY ORDERABLES Performing Organization Address City/State/[facility] Co de Phone Number [facility] [place] [address] * (ABNORMAL) Differential, Automated (11/07/2020 8:50 AM EDT) Neutrophil % 76.7 % [facility] Neutrophil Absolute 10.62(H) 1.70 - 6.10 x10(3)/mc L [facility] Lymph % 13.1 % [facility] Lymphocytes Abs 1.8 0.9 - 3.2 x10(3)/mc L [facility] Monocyte % 7.0 % [facility] Monocyte Abs 1.0(H) 0.3 - 0.9 x10(3)/mc L [facility] Eos % 2.2 % [facility] Eosinophils Abs 0.3 0.0 - 0.4 x10(3)/mc L [facility] Basophil % 0.6 % [facility] Baso Absolute 0.1 0.0 - 0.1 x10(3)/mc L [facility] Immature Gran % 0.40 % [facility] Comment: Immature granulocytes(IG's)percentage and absolute count will include metamyelocytes, myelocytes, and promyelocytes. Blood smears from CBCs yielding IG's will be scanned manually for concordance. If this scan disagrees with the automated IG or if promyelocytes are noted, a manual differential will be performed. Immature Gran Absolute 0.05(H) 0.00 - 0.04 x10(3)/mc L [facility] Blood 11/07/2020 8:50 AM EDT 11/07/2020 9:19 AM EDT Narrative Resulting Agency Comment Spec In Lab Evan Sinclair MD HEMATOLOGY ORDERABLE S [facility] [place] [address] * (ABNORMAL) Hemogram (11/07/2020 8:50 AM EDT) White Blood Cell 13.8(H) 4.0 - 9.5 x10(3)/mc L [facility] Red Blood Cell 4.87 4.58 - 5.54 x10(6)/mc L [facility] Hemoglobin 15.0 13.7 - 16.5 gm/dL [facility] Hematocrit 44.9 40.5 - 48.5 % [facility] Mean Cell Volume 92.2 82.9 - 93.1 fL [facility] Mean Cell Hemoglobin 30.8 27.5 - 32.1 pg [facility] Mean Cell Hemoglobin Concentration 33.4 32.0 - 35.7 gm/dL [facility] Platelet 171 145 - 357 x10(3)/mc L [facility] RDW Standard Deviation 40.0 36.0 - 45.0 fL [facility] RDW coefficient of variation 11.8 11.4 - 13.8 % [facility] Mean Platelet Volume 11.5 7.6 - 12.9 fL [facility] NRBC% auto 0.0 % [facility] NRBC Absolute 0.000 0.000 - 0.000 x10(3)/mc L [facility] Blood 11/07/2020 8:50 AM EDT 11/07/2020 9:19 AM EDT Narrative Resulting Agency Comment Spec In Lab Evan Sinclair MD HEMATOLOGY ORDERABLE S Performing Organization Address [facility] Co de Phone Number [facility] [place] [address] * (ABNORMAL) D-Dimer, Quantitative (11/07/2020 8:50 AM EDT) Pathologist [facility] D-Dimer 4,219(H) 0 - 500 FEU ng/ml [facility] Comment: The D-Dimer assay is used to aid in the diagnosis of deep vein thrombosis and pulmonary embolism. A normal D-Dimer result (less than 500 FEU ng/ml) has a negative predictive value of approximately 95% for the exclusion of acute PE and DVT when there is low to moderate pretest probability. To use age adjusted cutoff: Age x 10 ng/ml. Blood 11/07/2020 8:50 AM EDT 11/07/2020 9:19 AM EDT Narrative Resulting Agency Comment Spec In Lab Maximino Mcallister MD HEMATOLOGY ORDERAB LES Performing Organization Address [facility] de Phone Number [facility] [place] [address] * APTT (11/07/2020 8:50 AM EDT) Pathologist [facility] Partial Thromboplastin Time 26 25 - 37 sec [facility] Comment: The PTT is NOT appropriate for heparin monitoring. Use the Anti-Xa level for heparin monitoring (HEP UFH) or LMWH monitoring (HEP LMW). A PTT less than 37 seconds generally indicates adequate hemostasis. Blood 11/07/2020 8:50 AM EDT 11/07/2020 9:19 AM EDT Narrative Resulting Agency Comment Spec In Lab Maximino Mcallister MD HEMATOLOGY ORDERAB LES Performing Organization Address [facility] de Phone Number [facility] [place] [address] * Prothrombin Time (11/07/2020 8:50 AM EDT) Prothrombin Time 10.5 9.4 - 12.5 sec [facility] International Normalization Ratio 0.9 [facility] Comment: An INR <2.0 indicates adequate procoagulant activity for hemostasis in most patients without underlying bleeding disorders, though the INR may not adequately reflect hemostatic capacity in patients with liver disease and synthetic impairment. The recommended target INR range for therapeutic anticoagulation is 2.0 ? 3.0 for most applications, though lower and higher ranges may be appropriate depending on clinical circumstances. Blood 11/07/2020 8:50 AM EDT 11/07/2020 9:19 AM EDT Narrative Resulting Agency Comment Spec In Lab Maximino Mcallister MD HEMATOLOGY ORDERAB LES Performing Organization Address [facility] de Phone Number [facility] [place] [address] * Hepatic Function Panel (11/07/2020 8:50 AM EDT) Pathologist [facility] Protein, Total 6.7 6.1 - 8.0 gm/dL [facility] Albumin 3.9 3.2 - 5.2 gm/dL [facility] Aspartate Aminotransferase 29 0 - 39 unit/L [facility] Alanine Aminotransferase 46 0 - 55 unit/L [facility] Alkaline Phosphatase 118 40 - 130 unit/L [facility] Bilirubin, Total 0.8 0.2 - 1.3 mg/dL [facility] Bilirubin, Direct 0.2 0.0 - 0.3 mg/dL [facility] Blood 11/07/2020 8:50 AM EDT 11/07/2020 9:19 AM EDT Narrative Resulting Agency Comment Spec In Lab Maximino Mcallister MD CHEMISTRY ORDERABL ES Performing Organization Address [facility]/ZIP Co de Phone Number [facility] [place] [address] * (ABNORMAL) pro-Brain Natriuretic Peptide (11/07/2020 8:50 AM EDT) NT-proBNP 488(H) <=449 pg/mL [facility] Blood 11/07/2020 8:50 AM EDT 11/07/2020 9:19 AM EDT Narrative Resulting Agency Comment Spec In Lab Maximino Mcallister MD CHEMISTRY ORDERABL ES Performing Organization Address [facility] Co de Phone Number [facility] [place] [address] * TSH (11/07/2020 8:50 AM EDT) Thyroid Stimulating Hormone 1.38 0.27 - 4.20 mcIU/mL [facility] Blood 11/07/2020 8:50 AM EDT 11/07/2020 9:19 AM EDT Narrative Resulting Agency Comment Spec In Lab Maximino Mcallister MD CHEMISTRY ORDERABL ES Performing Organization Address [facility] Co de Phone Number [facility] [place] [address] * Phosphorus (11/07/2020 8:50 AM EDT) Phosphorus 3.3 2.5 - 4.5 mg/dL [facility] Blood 11/07/2020 8:50 AM EDT 11/07/2020 9:19 AM EDT Narrative Resulting Agency Comment Spec In Lab Maximino Mcallister MD CHEMISTRY ORDERABL ES Performing Organization Address [facility] Co de Phone Number [facility] [place] [address] * Magnesium (11/07/2020 8:50 AM EDT) Magnesium 0.94 0.69 - 1.07 mmol/L [facility] Blood 11/07/2020 8:50 AM EDT 11/07/2020 9:19 AM EDT Narrative Resulting Agency Comment Spec In Lab Maximino Mcallister MD CHEMISTRY ORDERABL ES [facility] [place] [address] * (ABNORMAL) Basic Metabolic Panel (non-fasting) (11/07/2020 8:50 AM EDT) Glucose 405(H) 65 - 199 mg/dL [facility] Comment:Diabetes: >=200 mg/d L plus symptoms Blood Urea Nitrogen 26(H) 10 - 20 mg/dL [facility] Creatinine 1.91(H) 0.80 - 1.50 mg/dL [facility] Sodium 138 135 - 145 mmol/L [facility] Potassium 4.6 3.5 - 5.0 mmol/L [facility] Comment: Please note: ??Patients with WBC >100,000 may have falsely elevated Potassium levels. ??For accurate Potassium quantification in these patients send serum separator tube (gold top) for subsequent determinations. ??Contact the Clinical Chemistry Laboratory if there are any questions. Chloride 101 98 - 107 mmol/L [facility] Carbon Dioxide 24 22 - 31 mmol/L [facility] Anion Gap 13 5 - 15 mmol/L [facility] Calcium 9.4 8.5 - 10.5 mg/dL [facility] Est Glomerular Filtration Rate 32(L) >=60 mL/min/1. 73 m?? [facility] Comment: This patient? s estimated glomerular filtration rate (eGFR) is between 32 mL/min/1.73 m2 (patients with less muscle mass per kg body weight) and 37 mL/min/1.73 m2 (patients with more muscle mass [...] and symptoms in addition to eGFR. Blood 11/07/2020 8:50 AM EDT 11/07/2020 9:19 AM EDT Narrative Resulting Agency Comment Spec In Lab Maximino Mcallister MD CHE[place] [address] * XR Chest One View (11/07/2020 8:35 AM EDT) Anatomical Region Laterality Modality Chest N/A Digital Radiogra phy Impressions 11/07/2020 8:39 AM EDT Similar tortuous descending aorta. Thank you for letting us participate in the care of this patient. ??If you are a health care provider and have any questions regarding this report, please contact the number below. ??For patients who have questions please contact the health physician primary care sports medicine that requested your imaging first. ? Narrative 11/07/2020 8:39 AM EDT EXAMINATION: XR CHEST ONE VIEW CLINICAL HISTORY: Concern for dissection TECHNIQUE: 1 view of the chest COMPARISON: February 03, 2017 FINDINGS: The lung volumes are low. Cardiomediastinal silhouette is unchanged. There is similar tortuous descending aorta. There is minimal right basilar atelectasis. No consolidation. No pulmonary edema. No pneumothorax or pleural effusion. Procedure Note Tyrone Jones MD - 11/07/2020 EXAMINATION: XR CHEST ONE VIEW CLINICAL HISTORY: Concern for dissection TECHNIQUE: 1 view of the chest COMPARISON: February 03, 2017 FINDINGS: The lung volumes are low. Cardiomediastinal silhouette is unchanged. Thereis similar tortuous descending aorta. There is minimal right basilaratelectasis. No consolidation. No pulmonary edema. No pneumothorax or pleuraleffusion. IMPRESSION Similar tortuous descending aorta. Thank you for letting us participate in the care of this patient. If youare a health care provider and have any questions regarding this report,please contact the number below. For patients who have questions please contactthe health physician primary care sports medicine that requested your imaging first. Electronically signed by: Tyrone Jones MD, [facility]([phone]), at 11/07/2020 8:39 AM Maximino Mcallister MD IMG DX ORDERABLES documented in this encounter Visit Diagnoses Diagnosis Chest pain, unspecified type Abdominal aortic aneurysm (AAA) without rupture Chronic atrial fibrillation Atrial fibrillation Chest pain Chest pain, unspecified Type 2 diabetes mellitus Type II or unspecified type diabetes mellitus without mention of complication, not stated as uncontrolled documented in this encounter Admitting Diagnoses Diagnosis Chest pain Chest pain, unspecified documented in this encounter Administered Medications Inactive Administered Medications - up to 3 most recent administrations Medication Order MAR Action Action Date Dose Rate Site acetaminophen (Tylenol) tablet 650 mg 650 mg, Oral, EVERY 6 HOURS PRN, Starting on Fri11/08/20 at 0809, Until Lisa 11/09/20 at 0843, Pain, Maximum dose of acetaminophen is 4000 mg from all sources in 24 hours. When ordered for pain, acetaminophen should be given even when other ordered pain medications are indicated. , Routine Given 11/08/2020 9:53 PM EDT 650 mg Given 11/08/2020 8:14 AM EDT 650 mg AMIOdarone (Cordarone) (1.8 mg/mL) in dextrose 5% 200 mL infusion 0.5-1 mg/min (16.6667-33.3333 mL/hr, rounded to 16.7-33.3 mL/hr), Intravenous, CONTINUOUS, Starting on Fri11/07/20 at 1745, Until Fri11/08/20 at 1604, Initiate loading infusion (slow): 1 mg/minute over 6 hours, then decrease to maintenance Infusion: 0.5 mg/minute over 18 hours. At 24 hours from start time, call MD regarding infusion or change to oral dosing. New Bag 11/08/2020 3:42 AM EDT 0.5 mg/min 16.7 mL/hr Rate/Dose Change 11/07/2020 11:00 PM EDT 0.5 mg/min 16.7 m L/hr New Bag 11/07/2020 8:28 PM EDT 1 mg/min 33.3 mL/hr AMIOdarone (CORDARONE) bolus from bag 150 mg 150 mg, Intravenous, Administer over 10 Minutes, ONCE, 1 dose, On Fri11/07/20 at 1745, Rapid Load. Bolus from Bag, Routine Bolus from Bag 11/07/2020 5:01 PM EDT 150 mg AMIOdarone (Cordarone; Pacerone) tablet 400 mg 400 mg, Oral, 2 TIMES DAILY, First dose on Fri11/08/20 at 1800, Until Discontinued, Routine Given 11/09/2020 8:31 AM EDT 400 mg Given 11/08/2020 5:04 PM EDT 400 mg apixaban (Eliquis) tablet 2.5 mg 2.5 mg, Oral, 2 TIMES DAILY, First dose on Fri11/08/20 at 2100, Until Discontinued, Anticoagulant, Routine, Restricted anticoagulant, choose the most appropriate response: Approved indication of non-valvular atrial fibrillation Given 11/09/2020 8:31 AM EDT 2.5 mg Given 11/08/2020 8:04 PM EDT 2.5 mg aspirin chewable tablet 81 mg 81 mg, Oral, DAILY, First dose (after last modification) on Fri11/08/20 at 0900, Until Discontinued, Routine Given 11/08/2020 8:15 AM EDT 81 mg aspirin EC tablet 325 mg 325 mg, Oral, ONCE, 1 dose, On Fri11/07/20 at 1300, Routine Given 11/07/2020 12:30 PM EDT 325 mg atorvastatin (Lipitor) tablet 40 mg 40 mg, Oral, EVERY EVENING, First dose on Fri11/07/20 at 1700, Until Discontinued, Routine Given 11/08/2020 5:03 PM EDT 40 mg Given 11/07/2020 4:54 PM EDT 40 mg clopidogreL (Plavix) tablet 300 mg 300 mg, Oral, ONCE, 1 dose, On Fri11/07/20 at 1300, Routine Given 11/07/2020 12:30 PM EDT 300 mg clopidogreL (Plavix) tablet 75 mg 75 mg, Oral, DAILY, First dose (after last modification) on Fri11/08/20 at 0900, Until Discontinued, Routine Given 11/08/2020 8:14 AM EDT 75 mg dextrose 10% infusion 250 mL, at 1,000 mL/hr, Intravenous, EVERY 30 MIN PRN, Starting on Fri11/09/20 at 0845, Until Fri11/09/20 at 1821, For BG 50-70 mg/dL: Oral treatment preferred:?? If able to drink, give 120 mL Juice or Regular (not diet) soda OR If NPO, give 15 gram glucose 40% oral gel massaged into buccal mucosa OR if unconscious or uncooperative, give 25 gram (250 mL) Dextrose 10% IV over 15 minutes per protocol OR, if no IV access, 1 mg Glucagon IM. For BG less than 50 mg/dL: Oral treatment preferred:?? If able to drink, give 240 mL Juice or Regular (not diet) soda OR If NPO, give 30 gram glucose 40% oral gel massaged in buccal mucosa OR if unconscious or uncooperative, give 25 gram (250 mL) Dextrose 10% IV over 15 minutes per protocol OR, if no IV access, 1 mg Glucagon IM. Recheck BG in 30 minutes. May repeat juice/soda, gel, dextrose or glucagon once per episode. For persistent hypoglycemia, consider longer-acting treatment for the duration of the active insulin. dilTIAZem (Cardizem) (1 mg/mL) in dextrose 5% 125 mL infusion 5-15 mg/hr (5-15 mL/hr), Intravenous, CONTINUOUS, Starting on Fri11/07/20 at 1615, Until Fri11/07/20 at 1652, Titrate to maintain heart rate of 80-90s ; Call MD for rate heart less than 60. Initiate infusion at 5 mg/hr and increase every 30 minutes by 5 mg/hr to a maximum dose of 15 mg/hr., Routine Rate/Dose Change 11/07/2020 4:26 PM EDT 10 mg/hr 10 mL/hr New Bag 11/07/2020 3:41 PM EDT 5 mg/hr 5 mL/hr glucagon (Glucagen) (1 mg/mL) injection solution 1 mg 1 mg, Intramuscular, EVERY 30 MIN PRN, Starting on Lisa 11/09/20 at 0845, Until Lisa 11/09/20 at 1821, Low blood sugar, For BG 50-70 mg/dL: Oral treatment preferred:?? If able to drink, give 120 mL Juice or Regular (not diet) soda OR If NPO, give 15 gram glucose 40% oral gel massaged into buccal mucosa OR if unconscious or uncooperative, give 25 gram (250 mL) Dextrose 10% IV over 15 minutes per protocol OR, if no IV access, 1 mg Glucagon IM. For BG less than 50 mg/dL: Oral treatment preferred:?? If able to drink, give 240 mL Juice or Regular (not diet) soda OR If NPO, give 30 gram glucose 40% oral gel massaged in buccal mucosa OR if unconscious or uncooperative, give 25 gram (250 mL) Dextrose 10% IV over 15 minutes per protocol OR, if no IV access, 1 mg Glucagon IM. Recheck BG in 30 minutes. May repeat juice/soda, gel, dextrose or glucagon once per episode. For persistent hypoglycemia, consider longer-acting treatment for the duration of the active insulin., Routine glucose (GLUTOSE) 40% oral geL 15-30 g, Buccal, EVERY 30 MIN PRN, Starting on Lisa 11/09/20 at 0845, Until Lisa 11/09/20 at 1821, Low blood sugar, For BG 50-70 mg/dL: Oral treatment preferred:?? If able to drink, give 120 mL Juice or Regular (not diet) soda OR If NPO, give 15 gram glucose 40% oral gel massaged into buccal mucosa OR if unconscious or uncooperative, give 25 gram (250 mL) Dextrose 10% IV over 15 minutes per protocol OR, if no IV access, 1 mg Glucagon IM. For BG less than 50 mg/dL: Oral treatment preferred:?? If able to drink, give 240 mL Juice or Regular (not diet) soda OR If NPO, give 30 gram glucose 40% oral gel massaged in buccal mucosa OR if unconscious or uncooperative, give 25 gram (250 mL) Dextrose 10% IV over 15 minutes per protocol OR, if no IV access, 1 mg Glucagon IM. Recheck BG in 30 minutes. May repeat juice/soda, gel, dextrose or glucagon once per episode. For persistent hypoglycemia, consider longer-acting treatment for the duration of the active insulin. 1 tube contains 15 grams of glucose (net weight of tube = 37.5 grams., Routine heparin (porcine) 50 units/mL in sodium chloride 0.45% 500 mL infusion 0-5,000 Units/hr (0-100 mL/hr), Intravenous, CONTINUOUS, Starting on Fri11/07/20 at 1300, Until Fri11/08/20 at 1501, BEGIN infusion at 1,000 units per hr (12 units/kg/hr). MAX INITIAL infusion rate is 1,000 units/hr. Target Heparin UFH Level (anti-Xa activity) = 0.3 - 0.7 IU/mL Start adjustment schedule 6 hours after starting infusion. If Heparin UFH Level is: - less than 0.1 IU/mL, administer PRN bolus and increase rate by 350 units per hr (4 units/kg/hr) - 0.1 - 0.29 IU/mL, administer PRN bolus and increase rate by 200 units per hr (2 units/kg/hr) - 0.3 - 0.7 IU/mL, No Change - 0.71 - 0.85 IU/mL, decrease rate by 100 units per hr (1 units/kg/hr) - 0.86 - 1.05 IU/mL, stop infusion for 30 minutes, then decrease rate by 200 units per hr (2 units/kg/hr) - Greater than 1.05 IU/mL, stop infusion for 60 minutes, then decrease rate by 250 units per hour (3 units/kg/hr) Repeat Heparin UFH Level 6 hours after initiating heparin. Then 6 hours after each dose adjustment. When 2 consecutive Heparin UFH Level within target range of 0.3 - 0.7 IU/mL, change Heparin UFH Level to once every 24 hours with A.M. labs while on heparin. RN to order required Heparin UFH Level - Per Protocol, Routine New Bag 11/08/2020 12:50 PM EDT 1,000 Units/hr 20 mL/hr New Bag 11/07/2020 12:31 PM EDT 1,000 Units/hr 20 mL/hr heparin (porcine) 50 units/mL in sodium chloride 0.45% 500 mL infusion 0-5,000 Units/hr (0-100 mL/hr), Intravenous, CONTINUOUS, Starting on Fri11/08/20 at 1600, Until Fri11/08/20 at 2058, Stop heparin drip when apixaban given BEGIN infusion at 1,000 units per hr (12 units/kg/hr). MAX INITIAL infusion rate is 1,000 units/hr. Target Heparin UFH Level (anti-Xa activity) = 0.3 - 0.7 IU/mL Start adjustment schedule 6 hours after starting infusion. If Heparin UFH Level is: - less than 0.1 IU/mL, administer PRN bolus and increase rate by 350 units per hr (4 units/kg/hr) - 0.1 - 0.29 IU/mL, administer PRN bolus and increase rate by 200 units per hr (2 units/kg/hr) - 0.3 - 0.7 IU/mL, No Change - 0.71 - 0.85 IU/mL, decrease rate by 100 units per hr (1 units/kg/hr) - 0.86 - 1.05 IU/mL, stop infusion for 30 minutes, then decrease rate by 200 units per hr (2 units/kg/hr) - Greater than 1.05 IU/mL, stop infusion for 60 minutes, then decrease rate by 250 units per hour (3 units/kg/hr) Repeat Heparin UFH Level 6 hours after initiating heparin. Then 6 hours after each dose adjustment. When 2 consecutive Heparin UFH Level within target range of 0.3 - 0.7 IU/mL, change Heparin UFH Level to once every 24 hours with A.M. labs while on heparin. RN to order required Heparin UFH Level - Per Protocol, Routine New Bag 11/08/2020 3:38 PM EDT 1,000 Units/hr 20 mL/hr insulin glargine (Lantus) (100 unit/mL) subcutaneous injection vial 10 Units 10 Units, Subcutaneous, DAILY, First dose on Fri11/08/20 at 1000, Until Discontinued, Routine Given 11/09/2020 8:31 AM EDT 10 Units Given 11/08/2020 10:28 AM EDT 10 Units insulin lispro (HumaLOG;Admelog) (100 unit/mL) subcutaneous injection vial 0-8 Units 0-8 Units, Subcutaneous, 3 TIMES DAILY WITH MEALS, First dose on Fri11/08/20 at 1345, Until Discontinued, [employer] Give 1 unit for every 10 grams carbohydrate. Hold if not eating or if BG less than 70 mg/dL., Routine Given 11/09/2020 2:02 PM EDT 4 Units Given 11/09/2020 8:33 AM EDT 4 Units Given 11/08/2020 5:32 PM EDT 5 Units insulin lispro (HumaLOG;Admelog) (100 unit/mL) subcutaneous injection vial 1-6 Units 1-6 Units, Subcutaneous, EVERY 4 HOURS SCHEDULED, First dose on Fri11/07/20 at 1730, Until Discontinued, CORRECTION BOLUS [1-6 Units] Moderate Sliding Scale (BG in mg/dL): Correction factor 20 (1 unit of insulin is expected to drop the glucose 20 mg/dL) BG 140 - 160 Give 1 unit BG 161 - 180 Give 2 units BG 181 - 200 Give 3 units BG 201 - 220 Give 4 units BG 221 - 240 Give 5 units BG greater than 240, give 6 units and recheck BG in 2 hours. - If recheck BG is LESS than 240, give no insulin and resume schedule. - If recheck BG is GREATER than 240, give 6 units and repeat BG in 2 hours (no more than 3 times) & call for new insulin orders. DO NOT hold if NPO, unless specifically directed to do so by written order. Per Blood Glucose Monitoring Policy, re-check a BG of > 240 mg/dL in 2 hours., Routine Given 11/09/2020 8:33 AM EDT 3 Units Given 11/09/2020 4:00 AM EDT 2 Units Given 11/09/2020 12:00 AM EDT 1 Units iohexoL (Omnipaque) (350 mg/mL) injection solution 0-200 mL 0-200 mL, Intravenous, ONCE PRN, 1 dose, Starting on Fri11/07/20 at 0954, Until Fri11/07/20 at 0954, Per Protocol, Warning Vesicant/Irritant Medication , Radiology Contrast, Routine Given 11/07/2020 9:54 AM EDT 75 mLs lactated ringers infusion 75 mL/hr, Intravenous, CONTINUOUS, Starting on Fri11/07/20 at 0900, Until Fri11/07/20 at 2241 New Bag 11/07/2020 8:59 AM EDT 75 mL/hr 75 mL/hr lisinopriL (Prinivil;Zestril) tablet 5 mg 5 mg, Oral, DAILY, First dose on Fri11/09/20 at 0930, Until Discontinued, Hold for SBP<90, Routine Given 11/09/2020 9:10 AM EDT 5 mg melatonin tablet 6 mg 6 mg, Oral, NIGHTLY, First dose on Fri11/08/20 at 2315, Until Discontinued, Routine Given 11/08/2020 10:27 PM EDT 6 mg metoprolol (LOPRESSOR) injection 5 mg 5 mg, Intravenous, EVERY 2 HOURS PRN, Starting on Fri11/07/20 at 0914, Until Fri11/07/20 at 1240, High Blood Pressure, for systolics >150, Notify provider for HR <50 Given 11/07/2020 10:16 AM EDT 5 mg metoprolol (LOPRESSOR) injection 5 mg 5 mg, Intravenous, EVERY 5 MIN PRN, Starting on Fri11/07/20 at 1245, Until Fri11/09/20 at 0843, High Blood Pressure, Hr >120, BP >150, Notify provider for HR <50 Given 11/08/2020 8:19 PM EDT 5 mg Given 11/08/2020 5:34 PM EDT 5 mg Given 11/07/2020 3:02 PM EDT 5 mg metoprolol succinate XL (Toprol-XL) tablet 50 mg 50 mg, Oral, DAILY, First dose on Fri11/09/20 at 0915, Until Discontinued, DO NOT CRUSH OR OPEN, Routine Given 11/09/2020 8:39 AM EDT 50 mg metoprolol tartrate (Lopressor) tablet 25 mg 25 mg, Oral, EVERY 6 HOURS SCHEDULED, First dose on Fri11/07/20 at 1330, Until Discontinued, Routine Given 11/07/2020 12:52 PM EDT 25 mg metoprolol tartrate (Lopressor) tablet 50 mg 50 mg, Oral, ONCE, 1 dose, On Fri11/07/20 at 1600, Hold for HR<60 or SBP<90, Routine Given 11/07/2020 3:15 PM EDT 50 m g metoprolol tartrate (Lopressor) tablet 75 mg 75 mg, Oral, EVERY 12 HOURS SCHEDULED (2 times per day), First dose (after last modification) on Fri11/07/20 at 2100, Until Discontinued, Routine Given 11/08/2020 8:04 PM EDT 75 mg nitroGLYcerin (Nitrostat) disintegrating tablet 0.4 mg 0.4 mg, Sublingual, EVERY 5 MIN PRN, Starting on Fri11/07/20 at 0749, Until [facility] 11/09/20 at 1821, Chest pain, May repeat every 5 minutes for a total of three doses. Notify provider if chest pain not relieved with nitroglycerin. Do not administer nitroglycerin if the patient has received or taken phosphodiesterase (PDE-5) inhibitors such as sildenafil, tadalafil or vardenafil within the last 24 to 72 hours., Routine Given 11/08/2020 7:57 AM EDT 0.4 mg Given 11/07/2020 4:46 PM EDT 0.4 mg Given 11/07/2020 4:40 PM EDT 0.4 mg sodium chloride 0.9 % (flush) flush 5 mL 5 mL, Intravenous, 2 TIMES DAILY, First dose on Fri11/07/20 at 0900, Until Discontinued, Routine Given 11/09/2020 8:31 AM EDT 5 mLs Given 11/08/2020 9:00 PM EDT 5 mLs Given 11/08/2020 8:16 AM EDT 5 mLs technetium (Tc-99m) macroaggregated albumin (MAA) injection 0-5 mCi 0-5 mCi, Intravenous, ONCE PRN, 1 dose, Starting on Fri11/07/20 at 1611, Until Fri11/07/20 at 1351, Per Protocol, Radiology Contrast, Routine Given 11/07/2020 1:51 PM EDT 4.4 mC i Left Arm documented in this encounter Active and Recently Administered Medications Times are shown in EDT. Scheduled Medication Order 11/07/2020 11/08/2020 11/09/2020 AMIOdarone (CORDARONE) bolus from bag 150 mg (COMPLETED)(Linked Group 1) 150 mg, Intravenous, Administer over 10 Minutes, ONCE, 1 dose, On Fri11/07/20 at 1745, Rapid Load. Bolus from Bag, Routine 1701 (Bolus from Bag - Provider: Oscar Rojo RN) AMIOdarone (Cordarone; Pacerone) tablet 400 mg 400 mg, Oral, 2 TIMES DAILY, First dose on Fri11/08/20 at 1800, Until Discontinued, Routine 1704 (Given - Provider: Julius Leon RN) 08 (Given - Provider: Julius Leon RN) apixaban (Eliquis) tablet 2.5 mg 2.5 mg, Oral, 2 TIMES DAILY, First dose on Fri11/08/20 at 2100, Until Discontinued, Anticoagulant, Routine, Restricted anticoagulant, choose the most appropriate response: Approved indication of non-valvular atrial fibrillation 2003 (Given - Provider: Tomas Nelson RN) 08 (Given - Provider: Julius Leon RN) aspirin chewable tablet 81 mg (CANCELED) 81 mg, Oral, DAILY, First dose (after last modification) on Fri11/08/20 at 0900, Until Discontinued, Routine 0815 (Given - Provider: Brandi Monsalve RN) aspirin EC tablet 325 mg (COMPLETED) 325 mg, Oral, ONCE, 1 dose, On Fri11/07/20 at 1300, Routine 1230 (Given - Provider: Oscar Rojo RN) atorvastatin (Lipitor) tablet 40 mg 40 mg, Oral, EVERY EVENING, First dose on Fri11/07/20 at 1700, Until Discontinued, Routine 1654 (Given - Provider: Oscar Rojo RN) 170 (Given - Provider: Julius Leon RN) clopidogreL (Plavix) tablet 300 mg (COMPLETED) 300 mg, Oral, ONCE, 1 dose, On Fri11/07/20 at 1300, Routine 1230 (Given - Provider: Oscar Rojo RN) clopidogreL (Plavix) tablet 75 mg (CANCELED) 75 mg, Oral, DAILY, First dose (after last modification) on Fri11/08/20 at 0900, Until Discontinued, Routine 0814 (Given - Provider: Brandi Monsalve, MARILYN) insulin glargine (Lantus) (100 unit/mL) subcutaneous injection vial 10 Units 10 Units, Subcutaneous, DAILY, First dose on Fri11/08/20 at 1000, Until Discontinued, Routine 1028 (Given - Provider: Brandi Monsalve, RN) 0831 (Given - Provider: Julius Leon, RN) insulin lispro (HumaLOG;Admelog) (100 unit/mL) subcutaneous injection vial 0-8 Units 0-8 Units, Subcutaneous, 3 TIMES DAILY WITH MEALS, First dose on Fri11/08/20 at 1345, Until Discontinued, [employer] Give 1 unit for every 10 grams carbohydrate. Hold if not eating or if BG less than 70 mg/dL., Routine 1254 (Given - Provider: Rachel Orosco RN)1732 (Given - Provider: Julius Leon, RN) 0833 (Given - Provider: Julius Leon, RN)1402 (Given - Provider: Julius Leon, RN) insulin lispro (HumaLOG;Admelog) (100 unit/mL) subcutaneous injection vial 1-6 Units (CANCELED)(Linked Group 2) 1-6 Units, Subcutaneous, EVERY 4 HOURS SCHEDULED, First dose on Fri11/07/20 at 1730, Until Discontinued, CORRECTION BOLUS [1-6 Units] Moderate Sliding Scale (BG in mg/dL): Correction factor 20 (1 unit of insulin is expected to drop the glucose 20 mg/dL) BG 140 - 160 Give 1 unit BG 161 - 180 Give 2 units BG 181 - 200 Give 3 units BG 201 - 220 Give 4 units BG 221 - 240 Give 5 units BG greater than 240, give 6 units and recheck BG in 2 hours. - If recheck BG is LESS than 240, give no insulin and resume schedule. - If recheck BG is GREATER than 240, give 6 units and repeat BG in 2 hours (no more than 3 times) & call for new insulin orders. DO NOT hold if NPO, unless specifically directed to do so by written order. Per Blood Glucose Monitoring Policy, re-check a BG of > 240 mg/dL in 2 hours., Routine 1709 (Given - Provider: Oscar Rojo, MARILYN)2026 (Given - Provider: Randy Muniz, RN)2347 (Given - Provider: Randy Muniz, RN) 0505 (Given - Provider: Randy Muniz, RN)0816 (Given - Provider: Brandi Monsalve RN - Comment: bg [phone] (Given - Provider: Rachel Orosco, RN)1712 (Given - Provider: Julius Leon RN)2028 (Given - Provider: Tomas Nelson, RN) 0000 (Given - Provider: Tomas Nelson, RN)0400 (Given - Provider: Tomas Nelson, RN)0833 (Given - Provider: Julius Leon RN) lisinopriL (Prinivil;Zestril) tablet 5 mg 5 mg, Oral, DAILY, First dose on Fri11/09/20 at 0930, Until Discontinued, Hold for SBP<90, Routine 0910 (Given - Provider: Julius Leon RN) melatonin tablet 6 mg (CANCELED) 6 mg, Oral, NIGHTLY, First dose on Fri11/08/20 at 2315, Until Discontinued, Routine 2227 (Given - Provider: Tomas Nelson RN) metoprolol succinate XL (Toprol-XL) tablet 50 mg 50 mg, Oral, DAILY, First dose on Fri11/09/20 at 0915, Until Discontinued, DO NOT CRUSH OR OPEN, Routine 0839 (Given - Provider: Julius Leon RN) metoprolol tartrate (Lopressor) tablet 25 mg (CANCELED) 25 mg, Oral, EVERY 6 HOURS SCHEDULED, First dose on Fri11/07/20 at 1330, Until Discontinued, Routine 1252 (Given - Provider: Oscar Rojo, MARILYN) metoprolol tartrate (Lopressor) tablet 50 mg (COMPLETED) 50 mg, Oral, ONCE, 1 dose, On Fri11/07/20 at 1600, Hold for HR<60 or SBP<90, Routine 1515 (Given - Provider: Oscar Rojo, MARILYN) metoprolol tartrate (Lopressor) tablet 75 mg (CANCELED) 75 mg, Oral, EVERY 12 HOURS SCHEDULED (2 times per day), First dose (after last modification) on Fri11/07/20 at 2100, Until Discontinued, Routine 2100 (Hold - Provider: Randy Muniz RN - Reason: Contraindicated) 0900 (Not Given - Provider: Brandi Monsalve, MARILYN - Reason: Contraindicated)2003 (Given - Provider: Tomas Nelson, RN) sodium chloride 0.9 % (flush) flush 5 mL (CANCELED) 5 mL, Intravenous, 2 TIMES DAILY, First dose on Fri11/07/20 at 0900, Until Discontinued, Routine 0856 (Given - Provider: Oscar Rojo, MARILYN)2099 (Not Given - Provider: Randy Muniz RN - Reason: Contraindicated) 08 (Given - Provider: Brandi Monsalve, MARILYN)2099 (Given - Provider: Tomas Nelson, MARILYN) 08 (Given - Provider: Julius Leon, MARILYN) Continuous Medication Order 11/07/2020 11/08/2020 11/09/2020 AMIOdarone (Cordarone) (1.8 mg/mL) in dextrose 5% 200 mL infusion (CANCELED)(Linked Group 1) 0.5-1 mg/min (16.6667-33.3333 mL/hr, rounded to 16.7-33.3 mL/hr), Intravenous, CONTINUOUS, Starting on Fri11/07/20 at 1745, Until Fri11/08/20 at 1604, Initiate loading infusion (slow): 1 mg/minute over 6 hours, then decrease to maintenance Infusion: 0.5 mg/minute over 18 hours. At 24 hours from start time, call MD regarding infusion or change to oral dosing. 170 (New Bag - Provider: Oscar Rojo, MARILYN)2027 (New Bag - Provider: Randy Muniz, RN)230 (Rate/Dose Change - Provider: Randy Muniz RN - Comment: change to 0.5) 034 (New Bag - Provider: Randy Muniz, RN) dilTIAZem (Cardizem) (1 mg/mL) in dextrose 5% 125 mL infusion (CANCELED) 5-15 mg/hr (5-15 mL/hr), Intravenous, CONTINUOUS, Starting on Fri11/07/20 at 1615, Until Fri11/07/20 at 1652, Titrate to maintain heart rate of 80-90s ; Call MD for rate heart less than 60. Initiate infusion at 5 mg/hr and increase every 30 minutes by 5 mg/hr to a maximum dose of 15 mg/hr., Routine 1541 (New Bag - Provider: Oscar Rojo RN)1626 (Rate/Dose Change - Provider: Oscar Rojo RN)1652 (Stopped - Provider: Oscar Rojo RN) heparin (porcine) 50 units/mL in sodium chloride 0.45% 500 mL infusion (CANCELED)(Linked Group 3) 0-5,000 Units/hr (0-100 mL/hr), Intravenous, CONTINUOUS, Starting on Fri11/07/20 at 1300, Until Fri11/08/20 at 1501, BEGIN infusion at 1,000 units per hr (12 units/kg/hr). MAX INITIAL infusion rate is 1,000 units/hr. Target Heparin UFH Level (anti-Xa activity) = 0.3 - 0.7 IU/mL Start adjustment schedule 6 hours after starting infusion. If Heparin UFH Level is: - less than 0.1 IU/mL, administer PRN bolus and increase rate by 350 units per hr (4 units/kg/hr) - 0.1 - 0.29 IU/mL, administer PRN bolus and increase rate by 200 units per hr (2 units/kg/hr) - 0.3 - 0.7 IU/mL, No Change - 0.71 - 0.85 IU/mL, decrease rate by 100 units per hr (1 units/kg/hr) - 0.86 - 1.05 IU/mL, stop infusion for 30 minutes, then decrease rate by 200 units per hr (2 units/kg/hr) - Greater than 1.05 IU/mL, stop infusion for 60 minutes, then decrease rate by 250 units per hour (3 units/kg/hr) Repeat Heparin UFH Level 6 hours after initiating heparin. Then 6 hours after each dose adjustment. When 2 consecutive Heparin UFH Level within target range of 0.3 - 0.7 IU/mL, change Heparin UFH Level to once every 24 hours with A.M. labs while on heparin. RN to order required Heparin UFH Level - Per Protocol, Routine 1231 (New Bag - Provider: Oscar Rojo RN) 1250 (New Bag - Provider: Rachel Orosco RN)1528 (Stopped - Provider: Julius Leon RN) heparin (porcine) 50 units/mL in sodium chloride 0.45% 500 mL infusion ()(Linked Group 4) 0-5,000 Units/hr (0-100 mL/hr), Intravenous, CONTINUOUS, Starting on Fri11/08/20 at 1600, Until Fri11/08/20 at 2059, Stop heparin drip when apixaban given BEGIN infusion at 1,000 units per hr (12 units/kg/hr). MAX INITIAL infusion rate is 1,000 units/hr. Target Heparin UFH Level (anti-Xa activity) = 0.3 - 0.7 IU/mL Start adjustment schedule 6 hours after starting infusion. If Heparin UFH Level is: - less than 0.1 IU/mL, administer PRN bolus and increase rate by 350 units per hr (4 units/kg/hr) - 0.1 - 0.29 IU/mL, administer PRN bolus and increase rate by 200 units per hr (2 units/kg/hr) - 0.3 - 0.7 IU/mL, No Change - 0.71 - 0.85 IU/mL, decrease rate by 100 units per hr (1 units/kg/hr) - 0.86 - 1.05 IU/mL, stop infusion for 30 minutes, then decrease rate by 200 units per hr (2 units/kg/hr) - Greater than 1.05 IU/mL, stop infusion for 60 minutes, then decrease rate by 250 units per hour (3 units/kg/hr) Repeat Heparin UFH Level 6 hours after initiating heparin. Then 6 hours after each dose adjustment. When 2 consecutive Heparin UFH Level within target range of 0.3 - 0.7 IU/mL, change Heparin UFH Level to once every 24 hours with A.M. labs while on heparin. RN to order required Heparin UFH Level - Per Protocol, Routine 1538 (New Bag - Provider: Julius Leon RN - Comment: gtt restarted at same rate, order to continue until first dose eliquis per team) lactated ringers infusion () 75 mL/hr, Intravenous, CONTINUOUS, Starting on Fri11/07/20 at 0900, Until Fri11/07/20 at 2241 0859 (New Bag - Provider: Oscar Rojo, MARILYN)2100 (Stopped - Provider: Randy Muniz, MARILYN) PRN Medication Order 11/07/2020 11/08/2020 11/09/2020 acetaminophen (Tylenol) tablet 650 mg (CANCELED) 650 mg, Oral, EVERY 6 HOURS PRN, Starting on Fri11/08/20 at 0809, Until Fri11/09/20 at 0843, Pain, Maximum dose of acetaminophen is 4000 mg from all sources in 24 hours. When ordered for pain, acetaminophen should be given even when other ordered pain medications are indicated. , Routine 0814 (Given - Provider: Brandi Monsalve, MARILYN)3 (Given - Provider: Tomas Nelson RN) dextrose 10% infusion(Linked Group 5) 250 mL, at 1,000 mL/hr, Intravenous, EVERY 30 MIN PRN, Starting on Fri11/09/20 at 0845, Until Fri11/09/20 at 1821, For BG 50-70 mg/dL: Oral treatment preferred:?? If able to drink, give 120 mL Juice or Regular (not diet) soda OR If NPO, give 15 gram glucose 40% oral gel massaged into buccal mucosa OR if unconscious or uncooperative, give 25 gram (250 mL) Dextrose 10% IV over 15 minutes per protocol OR, if no IV access, 1 mg Glucagon IM. For BG less than 50 mg/dL: Oral treatment preferred:?? If able to drink, give 240 mL Juice or Regular (not diet) soda OR If NPO, give 30 gram glucose 40% oral gel massaged in buccal mucosa OR if unconscious or uncooperative, give 25 gram (250 mL) Dextrose 10% IV over 15 minutes per protocol OR, if no IV access, 1 mg Glucagon IM. Recheck BG in 30 minutes. May repeat juice/soda, gel, dextrose or glucagon once per episode. For persistent hypoglycemia, consider longer-acting treatment for the duration of the active insulin. glucagon (Glucagen) (1 mg/mL) injection solution 1 mg(Linked Group 5) 1 mg, Intramuscular, EVERY 30 MIN PRN, Starting on Lisa 11/09/20 at 0845, Until Lisa 11/09/20 at 1821, Low blood sugar, For BG 50-70 mg/dL: Oral treatment preferred:?? If able to drink, give 120 mL Juice or Regular (not diet) soda OR If NPO, give 15 gram glucose 40% oral gel massaged into buccal mucosa OR if unconscious or uncooperative, give 25 gram (250 mL) Dextrose 10% IV over 15 minutes per protocol OR, if no IV access, 1 mg Glucagon IM. For BG less than 50 mg/dL: Oral treatment preferred:?? If able to drink, give 240 mL Juice or Regular (not diet) soda OR If NPO, give 30 gram glucose 40% oral gel massaged in buccal mucosa OR if unconscious or uncooperative, give 25 gram (250 mL) Dextrose 10% IV over 15 minutes per protocol OR, if no IV access, 1 mg Glucagon IM. Recheck BG in 30 minutes. May repeat juice/soda, gel, dextrose or glucagon once per episode. For persistent hypoglycemia, consider longer-acting treatment for the duration of the active insulin., Routine glucose (GLUTOSE) 40% oral geL(Linked Group 5) 15-30 g, Buccal, EVERY 30 MIN PRN, Starting on Lisa 11/09/20 at 0845, Until Lisa 11/09/20 at 1821, Low blood sugar, For BG 50-70 mg/dL: Oral treatment preferred:?? If able to drink, give 120 mL Juice or Regular (not diet) soda OR If NPO, give 15 gram glucose 40% oral gel massaged into buccal mucosa OR if unconscious or uncooperative, give 25 gram (250 mL) Dextrose 10% IV over 15 minutes per protocol OR, if no IV access, 1 mg Glucagon IM. For BG less than 50 mg/dL: Oral treatment preferred:?? If able to drink, give 240 mL Juice or Regular (not diet) soda OR If NPO, give 30 gram glucose 40% oral gel massaged in buccal mucosa OR if unconscious or uncooperative, give 25 gram (250 mL) Dextrose 10% IV over 15 minutes per protocol OR, if no IV access, 1 mg Glucagon IM. Recheck BG in 30 minutes. May repeat juice/soda, gel, dextrose or glucagon once per episode. For persistent hypoglycemia, consider longer-acting treatment for the duration of the active insulin. 1 tube contains 15 grams of glucose (net weight of tube = 37.5 grams., Routine iohexoL (Omnipaque) (350 mg/mL) injection solution 0-200 mL (COMPLETED) 0-200 mL, Intravenous, ONCE PRN, 1 dose, Starting on Fri11/07/20 at 0954, Until Fri11/07/20 at 0954, Per Protocol, Warning Vesicant/Irritant Medication , Radiology Contrast, Routine 0954 (Given - Provider: Acacia Gordon) metoprolol (LOPRESSOR) injection 5 mg (CANCELED) 5 mg, Intravenous, EVERY 2 HOURS PRN, Starting on Fri11/07/20 at 0914, Until Fri11/07/20 at 1240, High Blood Pressure, for systolics >150, Notify provider for HR <50 1016 (Given - Provider: Oscar Rojo RN) metoprolol (LOPRESSOR) injection 5 mg (CANCELED) 5 mg, Intravenous, EVERY 5 MIN PRN, Starting on Fri11/07/20 at 1245, Until Fri11/09/20 at 0843, High Blood Pressure, Hr >120, BP >150, Notify provider for HR <50 1300 (Given - Provider: Oscar Rojo RN)1502 (Given - Provider: Julius Leon RN) 1734 (Given - Provider: Julius Leon RN)2019 (Given - Provider: Tomas Nelson RN) nitroGLYcerin (Nitrostat) disintegrating tablet 0.4 mg 0.4 mg, Sublingual, EVERY 5 MIN PRN, Starting on Fri11/07/20 at 0749, Until Fri11/09/20 at 1821, Chest pain, May repeat every 5 minutes for a total of three doses. Notify provider if chest pain not relieved with nitroglycerin. Do not administer nitroglycerin if the patient has received or taken phosphodiesterase (PDE-5) inhibitors such as sildenafil, tadalafil or vardenafil within the last 24 to 72 hours., Routine 1640 (Given - Provider: Oscar Rojo RN)1646 (Given - Provider: Oscar Rojo RN - Comment: 08/12 pain) 0757 (Given - Provider: Brandi Monsalve RN) technetium (Tc-99m) macroaggregated albumin (MAA) injection 0-5 mCi (COMPLETED) 0-5 mCi, Intravenous, ONCE PRN, 1 dose, Starting on Fri11/07/20 at 1611, Until Fri11/07/20 at 1351, Per Protocol, Radiology Contrast, Routine 1351 (Given - Provider: Johan Tao - Comment: lac) Linked Groups Order Group 1: AMIOdarone (CORDARONE) bolus from bag 150 mg (COMPLETED)Jump to med 150 mg, Intravenous, Administer over 10 Minutes, ONCE, 1 dose, On Fri11/07/20 at 1745, Rapid Load. Bolus from Bag, Routine And AMIOdarone (Cordarone) (1.8 mg/mL) in dextrose 5% 200 mL infusion (CANCELED)Jump to med 0.5-1 mg/min (16.6667-33.3333 mL/hr, rounded to 16.7-33.3 mL/hr), Intravenous, CONTINUOUS, Starting on Fri11/07/20 at 1745, Until Fri11/08/20 at 1604, Initiate loading infusion (slow): 1 mg/minute over 6 hours, then decrease to maintenance Infusion: 0.5 mg/minute over 18 hours. At 24 hours from start time, call MD regarding infusion or change to oral dosing. Group 2: POCT Fingerstick Glucose (CANCELED) Routine, EVERY 4 HOURS, First occurrence on Fri11/07/20 at 1645, Until Specified, Consider choosing EVERY 4 HOURS as frequency for: - Type 1 Diabetes - At least 24 hours after coming off an insulin drip - At least 24 hours after admission for DKA - Hypoglycemia unawareness - Patients who are otherwise unstable Select the same frequency for the correction bolus insulin order And insulin lispro (HumaLOG;Admelog) (100 unit/mL) subcutaneous injection vial 1-6 Units (CANCELED)Jump to med 1-6 Units, Subcutaneous, EVERY 4 HOURS SCHEDULED, First dose on Fri11/07/20 at 1730, Until Discontinued, CORRECTION BOLUS [1-6 Units] Moderate Sliding Scale (BG in mg/dL): Correction factor 20 (1 unit of insulin is expected to drop the glucose 20 mg/dL) BG 140 - 160 Give 1 unit BG 161 - 180 Give 2 units BG 181 - 200 Give 3 units BG 201 - 220 Give 4 units BG 221 - 240 Give 5 units BG greater than 240, give 6 units and recheck BG in 2 hours. - If recheck BG is LESS than 240, give no insulin and resume schedule. - If recheck BG is GREATER than 240, give 6 units and repeat BG in 2 hours (no more than 3 times) & call for new insulin orders. DO NOT hold if NPO, unless specifically directed to do so by written order. Per Blood Glucose Monitoring Policy, re-check a BG of > 240 mg/dL in 2 hours., Routine Group 3: heparin (porcine) (1,000 units/mL) injection 0-4,000 Units (CANCELED) 0-4,000 Units, Intravenous, BOLUS PER HEPARIN PROTOCOL, Starting on Fri11/07/20 at 1209, Until Fri11/08/20 at 1501, Per Protocol, START ADJUSTMENT SCHEDULE 6 HOURS AFTER STARTING INFUSION Heparin UFH Level between 0.1 - 0.29 IU/mL: Bolus 2,000 units Heparin UFH Level less than 0.1 IU/mL: Bolus 4,000 units, Routine And heparin (porcine) 50 units/mL in sodium chloride 0.45% 500 mL infusion (CANCELED)Jump to med 0-5,000 Units/hr (0-100 mL/hr), Intravenous, CONTINUOUS, Starting on Fri11/07/20 at 1300, Until Fri11/08/20 at 1501, BEGIN infusion at 1,000 units per hr (12 units/kg/hr). MAX INITIAL infusion rate is 1,000 units/hr. Target Heparin UFH Level (anti-Xa activity) = 0.3 - 0.7 IU/mL Start adjustment schedule 6 hours after starting infusion. If Heparin UFH Level is: - less than 0.1 IU/mL, administer PRN bolus and increase rate by 350 units per hr (4 units/kg/hr) - 0.1 - 0.29 IU/mL, administer PRN bolus and increase rate by 200 units per hr (2 units/kg/hr) - 0.3 - 0.7 IU/mL, No Change - 0.71 - 0.85 IU/mL, decrease rate by 100 units per hr (1 units/kg/hr) - 0.86 - 1.05 IU/mL, stop infusion for 30 minutes, then decrease rate by 200 units per hr (2 units/kg/hr) - Greater than 1.05 IU/mL, stop infusion for 60 minutes, then decrease rate by 250 units per hour (3 units/kg/hr) Repeat Heparin UFH Level 6 hours after initiating heparin. Then 6 hours after each dose adjustment. When 2 consecutive Heparin UFH Level within target range of 0.3 - 0.7 IU/mL, change Heparin UFH Level to once every 24 hours with A.M. labs while on heparin. RN to order required Heparin UFH Level - Per Protocol, Routine Group 4: heparin (porcine) (1,000 units/mL) injection 0-4,000 Units () 0-4,000 Units, Intravenous, BOLUS PER HEPARIN PROTOCOL, Starting on Fri11/08/20 at 1600, Until Fri11/08/20 at 2058, Per Protocol, START ADJUSTMENT SCHEDULE 6 HOURS AFTER STARTING INFUSION Heparin UFH Level between 0.1 - 0.29 IU/mL: Bolus 2,000 units Heparin UFH Level less than 0.1 IU/mL: Bolus 4,000 units, Routine And heparin (porcine) 50 units/mL in sodium chloride 0.45% 500 mL infusion ()Jump to med 0-5,000 Units/hr (0-100 mL/hr), Intravenous, CONTINUOUS, Starting on Fri11/08/20 at 1600, Until Fri11/08/20 at 2058, Stop heparin drip when apixaban given BEGIN infusion at 1,000 units per hr (12 units/kg/hr). MAX INITIAL infusion rate is 1,000 units/hr. Target Heparin UFH Level (anti-Xa activity) = 0.3 - 0.7 IU/mL Start adjustment schedule 6 hours after starting infusion. If Heparin UFH Level is: - less than 0.1 IU/mL, administer PRN bolus and increase rate by 350 units per hr (4 units/kg/hr) - 0.1 - 0.29 IU/mL, administer PRN bolus and increase rate by 200 units per hr (2 units/kg/hr) - 0.3 - 0.7 IU/mL, No Change - 0.71 - 0.85 IU/mL, decrease rate by 100 units per hr (1 units/kg/hr) - 0.86 - 1.05 IU/mL, stop infusion for 30 minutes, then decrease rate by 200 units per hr (2 units/kg/hr) - Greater than 1.05 IU/mL, stop infusion for 60 minutes, then decrease rate by 250 units per hour (3 units/kg/hr) Repeat Heparin UFH Level 6 hours after initiating heparin. Then 6 hours after each dose adjustment. When 2 consecutive Heparin UFH Level within target range of 0.3 - 0.7 IU/mL, change Heparin UFH Level to once every 24 hours with A.M. labs while on heparin. RN to order required Heparin UFH Level - Per Protocol, Routine Group 5: glucose (GLUTOSE) 40% oral geLJump to med 15-30 g, Buccal, EVERY 30 MIN PRN, Starting on Lisa 11/09/20 at 0845, Until Lisa 11/09/20 at 1821, Low blood sugar, For BG 50-70 mg/dL: Oral treatment preferred:?? If able to drink, give 120 mL Juice or Regular (not diet) soda OR If NPO, give 15 gram glucose 40% oral gel massaged into buccal mucosa OR if unconscious or uncooperative, give 25 gram (250 mL) Dextrose 10% IV over 15 minutes per protocol OR, if no IV access, 1 mg Glucagon IM. For BG less than 50 mg/dL: Oral treatment preferred:?? If able to drink, give 240 mL Juice or Regular (not diet) soda OR If NPO, give 30 gram glucose 40% oral gel massaged in buccal mucosa OR if unconscious or uncooperative, give 25 gram (250 mL) Dextrose 10% IV over 15 minutes per protocol OR, if no IV access, 1 mg Glucagon IM. Recheck BG in 30 minutes. May repeat juice/soda, gel, dextrose or glucagon once per episode. For persistent hypoglycemia, consider longer-acting treatment for the duration of the active insulin. 1 tube contains 15 grams of glucose (net weight of tube = 37.5 grams., Routine Or dextrose 10% infusionJump to med 250 mL, at 1,000 mL/hr, Intravenous, EVERY 30 MIN PRN, Starting on Lisa 11/09/20 at 0845, Until Lisa 11/09/20 at 1821, For BG 50-70 mg/dL: Oral treatment preferred:?? If able to drink, give 120 mL Juice or Regular (not diet) soda OR If NPO, give 15 gram glucose 40% oral gel massaged into buccal mucosa OR if unconscious or uncooperative, give 25 gram (250 mL) Dextrose 10% IV over 15 minutes per protocol OR, if no IV access, 1 mg Glucagon IM. For BG less than 50 mg/dL: Oral treatment preferred:?? If able to drink, give 240 mL Juice or Regular (not diet) soda OR If NPO, give 30 gram glucose 40% oral gel massaged in buccal mucosa OR if unconscious or uncooperative, give 25 gram (250 mL) Dextrose 10% IV over 15 minutes per protocol OR, if no IV access, 1 mg Glucagon IM. Recheck BG in 30 minutes. May repeat juice/soda, gel, dextrose or glucagon once per episode. For persistent hypoglycemia, consider longer-acting treatment for the duration of the active insulin. Or glucagon (Glucagen) (1 mg/mL) injection solution 1 mgJump to med 1 mg, Intramuscular, EVERY 30 MIN PRN, Starting on Lisa 11/09/20 at 0845, Until Lisa 11/09/20 at 1821, Low blood sugar, For BG 50-70 mg/dL: Oral treatment preferred:?? If able to drink, give 120 mL Juice or Regular (not diet) soda OR If NPO, give 15 gram glucose 40% oral gel massaged into buccal mucosa OR if unconscious or uncooperative, give 25 gram (250 mL) Dextrose 10% IV over 15 minutes per protocol OR, if no IV access, 1 mg Glucagon IM. For BG less than 50 mg/dL: Oral treatment preferred:?? If able to drink, give 240 mL Juice or Regular (not diet) soda OR If NPO, give 30 gram glucose 40% oral gel massaged in buccal mucosa OR if unconscious or uncooperative, give 25 gram (250 mL) Dextrose 10% IV over 15 minutes per protocol OR, if no IV access, 1 mg Glucagon IM. Recheck BG in 30 minutes. May repeat juice/soda, gel, dextrose or glucagon once per episode. For persistent hypoglycemia, consider longer-acting treatment for the duration of the active insulin., Routine documented in this encounter Care Teams Grappler Relationship Specialty Start Date End Date Rolando Moise MD [address] [place] [place] [address] PCP - General Family Medicine 09/16/16 documented as of this encounter
--- OUTSIDE RECORDS SUMMARY | 2023-12-21 07:52 | XMS_ITS | Encounter Summary ---
Author Organization Formerly [facility], [facility] Address [facility] [place] [address] Care Team Providers Care Ropeman Name Role Phone Rolando Moise MD Primary Care Provider [phone] Encounter Details Date Type Department Care Team (Latest Contact Info) Description 07/18/2022 Travel Social History Tobacco Use Types Packs/Day [...] 1:30 PM EDT Laboratory Appointment Lab [address] [place] [address] 01/02/2024 3:00 PM EDT Office Visit [place] [address] Adam Costa MD [facility] [place] [address] documented as of this encounter Visit Diagnoses Not on filedocumented in this encounter Care Teams Ropeman Relationship Specialty Start Date End Date Rolando Moise MD [facility] [place] [phone] PCP - General Family Medicine 09/16/16 documented as of this encounter
--- OUTSIDE RECORDS SUMMARY | 2023-12-21 07:53 | XMS_ITS | Encounter Summary ---
Author Organization [facility] Address [facility] [place] [address] Care Team Providers Care Rink Rat Name Role Phone Rolando Zacarias MD Primary Care Provider [phone] Encounter Details Date Type Department Care Team (Late st Contact Info) Description 07/17/2016 Orders [place] [phone] Esme Copeland CMA Abdominal aortic aneurysm (AAA) without rupture Social History Tobacco Use Types Packs/Day Years Used Date Smoking Tobacco: Some Days Pipe Comments:pipe smoker, about 5 ounces a month Alcohol Use Standard Drinks/Week Comments No 0 [...] 1:30 PM EDT Laboratory Appointment Lab [address] [place] [phone] 01/02/2024 3:00 PM EDT Office Visit [place] [address] Adam Costa MD [facility] [place] [address] documented as of this encounter Results * Endo-vascular AAA repair (09/16/2016 10:07 AM EDT) VB Text Report Department: Vascular Surgery Lab Patient: [id number] (CALI THOMPSON) CPT: 49800 ICD10: I71.4 Referring Physician: ACACIA BORGES ?? Indications: AAA EVAR w/o rupture, ? size/endoleak ICD10 Diagnosis Code: I71.4 Findings: Unilateral ? PSV (cm/s) ??EDV (cm/s) ??AP (cm) ??Lateral (cm) ?? Syeda Visceral Aorta ?50 ? 0 ?3.0 ? 2.6 ?? Syeda Renal Aorta ? 25 ? 0 ?3.8 ? 3.6 ?? Infra Renal Aorta ?7.3 ? 6.2 ?? Interpretation: Patent endovascular abdominal aortic aneurysm repair, containing soft plaque/thrombus, with no evidence of endoleak. The maximum diameter is approximately 7.3 x 6.2 cm, previous CTA measurement 7.7 x 5.6 cm (08/11/2014). Comparison: ??No previous study in our vascular lab database for comparison. Electronically Signed by: LOLY MAGALLANES on 2016-09-17 08:35:05 PM [facility] VB Text Report End of Report [facility] 09/16/2016 10:0 7 AM EDT Acacia Borges MD VASCULAR ORDERABLES [facility] documented in this encounter Visit Diagnoses Diagnosis Abdominal aortic aneurysm (AAA) without rupture documented in this encounter Care Teams Rink Rat Relationship Specialty Start Date End Date Rolando Zacarias MD PCP - General 04/12/11 09/15/16 documented as of this encounter
--- OUTSIDE RECORDS SUMMARY | 2023-12-21 07:53 | XMS_ITS | Encounter Summary ---
Author Organization Formerly [facility] [place] [address] Care Team Providers Care Vice President Of Software Engineering Name Role Phone Rolando Moise MD Primary Care Provider [phone] Encounter Details Date Type Department Care Team (Latest Contact Info) Description 09/16/2016 9:51 AM EDT - 09/16/2016 11:59 PM EDT Hospital [place] [address] Susana Snyder, RVT Abdominal aortic aneurysm (AAA) without rupture Discharge Disposition: Home Social History Tobacco Use [...] Sig Dispensed Refills Start Date End Date tamsulosin (FLOMAX) 0.4 mg Capsule, Sust. Release 24 hr Take 0.4 mg by mouth daily. lisinopril (PRINIVIL;ZESTRIL) 20 mg Tablet Take 20 mg by mouth daily. 02/03/2017 atorvastatin (LIPITOR) 20 mg Tablet Take 20 mg by mouth daily. 02/03/2017 verapamil (CALAN) 120 mg Tablet Take 120 mg by mouth 3 times daily. 02/03/2017 [place]-3 Fatty Acids-Vitamin E (FISH OIL) 1,000 mg Cap Take by mouth daily. Reported on 09/16/2016 02/05/2017 enalapril (VASOTEC) 5 mg tablet Take 2 tablets by mouth daily. 30 tablet 04/16/2011 02/03/2017 metFORMIN (GLUCOPHAGE) 500 mg tablet Take 500 mg by mouth 2 times daily (with meals). 11/09/2020 simvastatin (ZOCOR) 20 mg tablet Take 20 mg by mouth nightly. Reported on 09/16/2016 02/03/2017 DILTiazem (DILACOR XR) 240 mg 24 hr capsule Take 240 mg by mouth daily. Reported on 09/16/2016 02/03/2017 documented as of this encounter Plan of Treatment Upcoming Encounters Date Type Department Care Team (Latest Contact Info) Description 01/02/2024 1:30 PM EDT Laboratory Appointment Lab [address] [address] 01/02/2024 3:00 PM EDT Office Visit [place] [phone] Adam Costa MD [facility] [place] [address] documented as of this encounter Procedures Procedure Name Priority Date/Time Associated Diagnosis Comments ENDO-VASCULAR AAA REPAIR Routine 09/16/2016 10:07 AM EDT Abdominal aortic aneurysm (AAA) without rupture documented in this encounter Results * Endo-vascular AAA repair (09/16/2016 10:07 AM EDT) VB Text Report Department: Vascular Surgery Lab Patient: [id number] (CALI THOMPSON) CPT: 63977 ICD10: I71.4 Referring Physician: ACACIA BORGES ?? [...] AM EDT Acacia Borges MD VASCULAR ORDERABLES Performing Organization Address City/State/[facility] Co de Phone Number [facility] documented in this encounter Visit Diagnoses Diagnosis Abdominal aortic aneurysm (AAA) without rupture documented in this encounter Care Teams Vice President Of Software Engineering Relationship Specialty Start Date End Date Rolando Moise MD [facility] [place] [address] PCP - General Family Medicine 09/16/16 documented as of this encounter
--- OUTSIDE RECORDS SUMMARY | 2023-12-21 07:53 | XMS_ITS | Encounter Summary ---
Author Organization [facility] Address [facility] [place] [address] Care Team Providers Care Family And Divorce Legal Assistant Name Role Phone Rolando Zacarias MD Primary Care Provider [phone] Encounter Details Date Type Department Care Team (Latest Contact Info) Description 10/06/2012 12:00 PM EDT - 10/06/2012 11:59 PM EDT Hospital [place] [id number] AAA (abdominal aortic aneurysm) Social History Tobacco Use Types Packs/Day Years [...] Sig Dispensed Refills Start Date End Date [place]-3 Fatty Acids-Vitamin E (FISH OIL) 1,000 mg [...] 09/16/2016 02/03/2017 documented as of this encounter Miscellaneous Notes * Ancillary Services Notes - Jelena Barakat - 10/06/2012 12:16 PM EDT You had a CT Scan on 6-4 @ 12pm Per [facility] Policy it is important that you stop taking your Metformin(Diabetic Medication) for 2 days following the injection of IV iodinated contrast. You can start taking your Metformin on 6-6 After 12 pm If you have any questions or concerns, contact your primary care provider. Also drink plenty of water following your CT Scan to help clear the IV Iodinated contrast out of your body. Thank You, [facility] CT Scan Dept documented in this encounter Plan of Treatment Upcoming Encounters Date Type Department Care Team (Latest Contact Info) Description 01/02/2024 1:30 PM EDT Laboratory Appointment Lab [address] [place] [phone] 01/02/2024 3:00 PM EDT Office Visit Nephrology [place] [address] Adam Costa MD [facility] [place] [address] documented as of this encounter Procedures Procedure Name Priority Date/Time Associated Diagnosis Comments CT ANGIOGRAM ABDOMEN AND PELVIS W CONTRAST Routine 10/06/2012 12:29 PM EDT AAA (abdominal aortic aneurysm) documented in this encounter Results * CTA of Abdomen and Pelvis With Contrast (10/06/2012 12:29 PM EDT) Anatomical Region Laterality Modality Abdomen, Pelvis Computed Tomogra phy 10/06/2012 12:2 9 PM EDT Narrative 10/06/2012 2:39 PM EDT Examination CTA of Abdomen and Pelvis With Contrast Clinical History S/P EVAR/ZENITH/AAA Comparison October 22, 2011. Technique Contrast-enhanced CT scan of the abdomen and pelvis following administration of 110 mL Omnipaque 350 intravenous contrast in arterial and delayed phase imaging. 3D volume rendered and MIP images were re-formatted on a separate work station and reviewed as part of this study. Findings Vascular structures: ??Calcification about the origins of celiac and superior mesenteric arteries are stable. 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 ?? Left renal artery remains patent. ??Maximum caliber of the ruby abdominal aortic aneurysm sac has decreased from 7.8 x 5.6 cm to 7.5 x 5.4 cm. ?? Previously noted suspected type 2 endoleak is much less conspicuous today and only a small amount of contrast is seen about the posterior aspect of the left iliac limb on delayed phase imaging likely due the inflow from ileolumbar artery. ??Position of iliac limbs is stable. Stable left IIA aneurysm. Imaged portions of the lung bases show neither pulmonary nodule nor pleural effusion. Abdomen: ??Liver, gallbladder, pancreas and spleen are unremarkable. ??Right and left adrenal glands and kidneys are normal. ??Nonobstructing left lower pole calcifications is simple right renal cyst are stable. And pelvis: ??Decrease in inflammatory changes about the proximal sigmoid colon may represent resolving or very early diverticulitis. ??No fluid collections. ?? No free air. Review of osseous structures shows degenerative change without suspicious lesions. Impression Previously noted suspected type 2 endo leak is much less conspicuous today with only a small amount of contrast puddling in the caudal aspect of the ruby abdominal aortic aneurysm sac at delayed phase imaging likely due the inflow from an ileolumbar artery. ??The ruby abdominal aortic aneurysm sac has decreased in size. Very early or resolving proximal sigmoid diverticulitis without perforation or abscess. Procedure Note Cinthia Garland MD - 10/06/2012 Examination CTA of Abdomen and Pelvis With Contrast Clinical History S/P EVAR/ZENITH/AAA Comparison October 22, 2011. Technique Contrast-enhanced CT scan of the abdomen and pelvis followingadministration of 110 mL Omnipaque 350 intravenous contrast in arterial and delayed phase imaging. 3D volume rendered and MIP images were re-formatted on a separatework station and reviewed as part of this study. Findings Vascular structures: Calcification about the origins of celiac andsuperior mesenteric arteries are stable. Juxtarenal position of bifurcated aortoiliac endo graft with moderate stenosis of the proximal right renal artery isstable. Left renal artery remains patent. Maximum caliber of the ruby abdominal aortic aneurysm sac has decreased from 7.8 x 5.6 cm to 7.5 x 5.4 cm. Previously noted suspected type 2 endoleak is much less conspicuous todayand only a small amount of contrast is seen about the posterior aspect of theleft iliac limb on delayed phase imaging likely due the inflow from ileolumbar artery. Position of iliac limbs is stable. Stable left IIA aneurysm. Imaged portions of the lung bases show neither pulmonary nodule norpleural effusion. Abdomen: Liver, gallbladder, pancreas and spleen are unremarkable. Rightand left adrenal glands and kidneys are normal. Nonobstructing left lowerpole calcifications is simple right renal cyst are stable. And pelvis: Decrease in inflammatory changes about the proximal sigmoidcolon may represent resolving or very early diverticulitis. No fluidcollections. No free air. Review of osseous structures shows degenerative change without suspicious lesions. Impression Previously noted suspected type 2 endo leak is much less conspicuous todaywith only a small amount of contrast puddling in the caudal aspect of thenative abdominal aortic aneurysm sac at delayed phase imaging likely due theinflow from an ileolumbar artery. The ruby abdominal aortic aneurysm sac has decreased in size. Very early or resolving proximal sigmoid diverticulitis withoutperforation or abscess. Steven Borges MD IMG CT ORDERABLES documented in this encounter Visit Diagnoses Diagnosis AAA (abdominal aortic aneurysm) Abdominal aneurysm without mention of rupture documented in this encounter Administered Medications Inactive Administered Medications - up to 3 most recent administrations Medication Order MAR Action Action Date Dose Rate Site iohexol (OMNIPAQUE) 350 mg iodine/mL injection 38,500 mg 38,500 mg (110 mL), Intravenous, ONCE PRN, 1 dose, Starting on 10/06/12 at 1216, Until 10/06/12 at 1221, Per Protocol, Routine Given 10/06/2012 12:21 PM EDT 38,500 mg documented in this encounter Care Teams Family And Divorce Legal Assistant Relationship Specialty Start Date End Date Rolando Zacarias MD PCP - General 04/12/11 09/15/16 documented as of this encounter
--- OUTSIDE RECORDS SUMMARY | 2023-12-21 07:53 | XMS_ITS | Encounter Summary ---
Author Organization [facility] Address [facility] [place] [address] Care Team Providers Care Envelope Cutter Name Role Phone Rolando Moise MD Primary Care Provider [phone] Encounter Details Date Type Department Care Team (Late st Contact Info) Description 02/03/2017 [place] [phone] Jeanette Betancourt MD [facility] [place] [address] Social History Tobacco Use Types Packs/Day Years [...] encounter Miscellaneous Notes * Telephone Encounter - Jeanette Betancourt - 02/03/2017 5:14 AM EDT 02/03/2017 Cesar Thompson Initial Contact Date: 02/03/2017 Initial contact time: 5:15am Referring Provider: Dr. Emanuel Osei Patient Location: [facility] Past Medical History: Patient Active Problem List Diagnosis Code ??? AAA (abdominal aortic aneurysm) I71.4 ??? HTN (hypertension) I10 ??? NIDDM (non-insulin dependent diabetes mellitus) ??? S/P hernia repair Z98.890, Z87.19 Presenting Symptoms per OSH: 81 yo man with hx of HTN, HLD, NIDDM and AAA s/p stenting who presents to [facility] with chest discomfort in the upper chest and throat. Thought it felt like indigestion. No radiation. No other symptoms. 1 SL nitro given in the ED, which dropped his blood pressures, but did not affect chest pain. ASA and GI cocktail given. Patient felt like the GI cocktail helped his symptoms. EKG with anterolateral TWI, slight [place] anteriorly. Trop I - 1.35 (ULN - 0.06) VS: HR 66, RR 16, 132/73, 96% RA, afebrile Home Meds: Vosotec 10mg Verapamil 180mg TID ASA 81mg daily Pravastatin 20mg qhs Metformin 500mg BID Flomax 0.4mg daily Pertinent Diagnostic Findings: Creatinine - 1.45 Mg - 1.45 CBC normal Past cardiac studies: EKG 04/2011: Sinus rhythm with 1st degree A-V block OSH Interventions: - SL nitro - ASA 324mg Plan: nSTEMI - Heparin bolus and gtt - Plavix 300mg - Accept in transfer to Dr. Inder Medley, cardiology attending - I've asked that if anything changes clinically, that we be contacted (ie. If any HD instability, EKG changes, recurrent chest pain that's difficult to eliminate) - Above recommendations were based on my discussion with Dr. Osei; I have not personally interviewed or examined this patient; I have personally reviewed EKGs. Jeanette Betancourt MD Television Specialist PGY-4 Pager: [phone] documented in this encounter Plan of Treatment Upcoming Encounters Date Type Department Care Team (Latest Contact Info) Description 01/02/2024 1:30 PM EDT Laboratory Appointment Lab [address] [place] [phone] 01/02/2024 3:00 PM EDT Office Visit [place] [phone] Adam Costa MD [facility] [place] [address] documented as of this encounter Visit Diagnoses Not on filedocumented in this encounter Care Teams Envelope Cutter Relationship Specialty Start Date End Date Rolando Moise MD [facility] [phone] PCP - General Family Medicine 09/16/16 documented as of this encounter
--- OUTSIDE RECORDS SUMMARY | 2023-12-21 07:53 | XMS_ITS | Encounter Summary ---
Author Organization [facility] Address [facility] [place] [address] Care Team Providers Care Adventure Guide Name Role Phone Rolando Zacarias MD Primary Care Provider [phone] Encounter Details Date Type Department Care Team (Latest Contact Info) Description 08/11/2014 9:05 AM EDT - 08/11/2014 11:59 PM EDT Hospital Encounter CT Scan at [facility] [place] [phone] CLINIC, DR WATKINS AAA (abdominal aortic aneurysm) Social History Tobacco [...] Sig Dispensed Refills Start Date End Date verapamil (CALAN) 120 mg Tablet Take 120 mg by mouth 3 times daily. 02/03/2017 [place]-3 Fatty Acids-Vitamin E (FISH OIL) 1,000 mg [...] Miscellaneous Notes * Ancillary Services Notes - Joe Francis - 08/11/2014 9:51 AM EDT You had a CT Scan on 08/11/2014 @ 9:40AM Per [facility] Policy it is important that you stop taking your Metformin (Diabetic Medication) for 2 days following the injection of IV iodinated contrast. You canstart taking your Metformin on 08/13/2014. If you have any questions or concerns, contact your primary care provider. Also drink plenty of water following your CT Scan to help clear the IV Iodinated contrast out of your body. Thank You, [facility] CT Scan Dept documented in this encounter Plan of Treatment Upcoming Encounters Date Type Department Care Team (Latest Contact Info) Description 01/02/2024 1:30 PM EDT Laboratory Appointment Lab [address] [place] [phone] 01/02/2024 3:00 PM EDT Office Visit Nephrology [place] [address] Adam Costa MD [facility] [place] [address] documented as of this encounter Procedures Procedure Name Priority Date/Time Associated Diagnosis Comments CT ANGIOGRAM ABDOMEN AND PELVIS W CONTRAST Routine 08/11/2014 10:03 AM EDT documented in this encounter Results * CTA of Abdomen and Pelvis With Contrast (08/11/2014 10:03 AM EDT) Anatomical Region Laterality Modality Abdomen, Pelvis Computed Tomogra phy 08/11/2014 10:0 3 AM EDT Impressions 08/11/2014 10:45 AM EDT IMPRESSION: 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 Stable algaaciq aneurysm sac size. Findings noted previously of either resolving or very early proximal sigmoid diverticulitis without perforation or abscess are stable. 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 MIP and 3-D volume rendered images were reformatted on a separate workstation and reviewed as part of this study. COMPARISON: October 06, 2012 FINDINGS: Vascular structures: Calcified patent celiac artery origin. Calcified patent superior mesenteric artery origin. Patent bilateral solitary renal artery origins. 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 Juxtarenal position of bifurcated aorto iliac stent graft is stable. Position of distal limbs stable. Maximum caliber of the algaaciq abdominal aortic aneurysm sac unchanged, currently measuring 7.7 x 5.6 cm compared to prior of 7.6 x 5.5 cm. In 2011, this measured 7.6 x 5.3 cm. Contrast extravasation into the algaaciq abdominal aortic aneurysm sac evident only on delayed phase imaging, less conspicuous than prior. While this endoleak cannot be completely characterize, the most common type would be type II. Imaged portions of lung bases are normal. Solid intra-abdominal organs are normal. Stable stranding about the proximal sigmoid colon. Review of osseous structures show degenerative disease at the L4-5 and L5-S1 intervertebral disc spaces. 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 MIPand 3-D volume rendered images were reformatted on a separate workstationand reviewed as part of this study. COMPARISON: October 06, 2012 FINDINGS: Vascular structures: Calcified patent celiac artery origin. Calcifiedpatent superior mesenteric artery origin. Patent bilateral solitary renalartery origins. Partially thrombosed aneurysm at the right renal artery originis unchanged. Juxtarenal position of bifurcated aorto iliac stent graft isstable. Position of distal limbs stable. Maximum caliber of the algaaciq abdominalaortic aneurysm sac unchanged, currently measuring 7.7 x 5.6 cm compared to priorof 7.6 x 5.5 cm. In 2011, this measured 7.6 x 5.3 cm. Contrast extravasationinto the algaaciq abdominal aortic aneurysm sac evident only on delayed phaseimaging, less conspicuous than prior. While this endoleak cannot be completely characterize, the most common type would be type II. Imaged portions of lung bases are normal. Solid intra-abdominal organsare normal. Stable stranding about the proximal sigmoid colon. Review of osseous structures show degenerative disease at the L4-5 andL5-S1 intervertebral disc spaces. 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 Stable nativeaneurysm sac size. Findings noted previously of either resolving or very early proximalsigmoid diverticulitis without perforation or abscess are stable. Steven Borges MD IMG CT ORDERABLES documented in this encounter Visit Diagnoses Diagnosis AAA (abdominal aortic aneurysm) Abdominal aneurysm without mention of rupture documented in this encounter Administered Medications Inactive Administered Medications - up to 3 most recent administrations Medication Order MAR Action Action Date Dose Rate Site iohexol (OMNIPAQUE) 350 mg/mL solution 38,500 mg 38,500 mg (110 mL), Intravenous, ONCE PRN, 1 dose, Starting on Lisa 08/11/14 at 0951, Until Lisa 08/11/14 at 0951, Per Protocol, Routine Given 08/11/2014 9:51 AM EDT 38,500 mg documented in this encounter Care Teams Adventure Guide Relationship Specialty Start Date End Date Rolando Zacarias MD PCP - General 04/12/11 09/15/16 documented as of this encounter
--- OUTSIDE RECORDS SUMMARY | 2023-12-21 07:53 | XMS_ITS | Encounter Summary ---
Author Organization [facility] Address [facility] [place] [address] Care Team Providers Care Foundry Manager Name Role Phone Rolando Zacarias MD Primary Care Provider [phone] Reason for Visit * Reason Comments Follow-up AAA surveillance Encounter Details Date Type Department Care Team (Late st Contact Info) Description 10/22/2011 1:00 PM EDT Follow-[place] [phone] CLINIC, Steven Barahona MD [facility] [place] [address] AAA (abdominal aortic aneurysm) (Primary Dx) Discharge Disposition: Home Social History Tobacco Use [...] Sign Reading Time Taken Comments Blood Pressure 129/76 10/22/2011 1:05 PM EDT lef t arm Pulse 80 10/22/2011 1:04 PM EDT Temperature - - Respiratory Rate - - Oxygen Saturation 96% 10/22/2011 1:04 PM EDT Inhaled Oxygen Concentration - - Weight 86.2 kg (190 lb) 10/22/2011 1:04 PM EDT Height 175.3 cm (5' 9) 10/22/2011 1:04 PM EDT Body Mass Index 28.06 10/22/2011 1:04 PM EDT documented in this encounter Progress Notes * Steven Borges MD - 10/22/2011 1:23 PM EDT Interval history: Mr Thompson is a 75 yo gentleman who presents for follow-up of EVAR. This was performed on April 12, 2011. States he has been well with no recent changes in health. Prior vascular history: Endovascular repair of aortic aneurysm, using Cook Zenith Flex [id number] via right; ipsilateral extension with TFLE 16-56; contralateral extension with TFLE 16-73. Pex: NAD Studies: CTA reveals graft in good position, no leaks, no interval growth of sac Assessment / Plan: Doing well. Follow-up one year with CTA documented in this encounter Plan of Treatment Upcoming Encounters Date Type Department Care Team (Latest Contact Info) Description 01/02/2024 1:30 PM EDT Laboratory Appointment Lab [address] [address] 01/02/2024 3:00 PM EDT Office Visit [place] [address] Adam Costa MD [facility] [place] [address] documented as of this encounter Results * CTA of Abdomen [...] artery remains patent. ??Maximum caliber of the [place] abdominal aortic aneurysm sac has decreased from [...] puddling in the caudal aspect of the [place] abdominal aortic aneurysm sac at delayed phase imaging likely due the inflow from an ileolumbar artery. ??The [place] abdominal aortic aneurysm sac has decreased in [...] artery remains patent. Maximum caliber of the [place] abdominal aortic aneurysm sac has decreased from [...] due theinflow from an ileolumbar artery. The [place] abdominal aortic aneurysm sac has decreased in size. Very early or resolving proximal sigmoid diverticulitis withoutperforation or abscess. Steven Borges MD IMG CT ORDERABLES documented in this encounter Visit Diagnoses Diagnosis AAA (abdominal aortic aneurysm)- Primary Abdominal aneurysm without mention of rupture AAA (abdominal aortic aneurysm) Abdominal aneurysm without mention of rupture documented in this encounter Care Teams Foundry Manager Relationship Specialty Start Date End Date Rolando Zacarias MD PCP - General 04/12/11 09/15/16 documented as of this encounter
--- OUTSIDE RECORDS SUMMARY | 2023-12-21 07:53 | XMS_ITS | Encounter Summary ---
Author Organization [facility] Address [facility] [place] [address] Care Team Providers Care Bill Of Materials Clerk Name Role Phone Rolando Zacarias MD Primary Care Provider [phone] Encounter Details Date Type Department Care Team (Late st Contact Info) Description 10/22/2011 11:51 AM EDT - 10/22/2011 11:59 PM EDT Hospital Encounter CT Scan at [facility] [place] [id number] Social History Tobacco Use Types Packs/Day Years [...] Sig Dispensed Refills Start Date End Date enalapril (VASOTEC) 5 mg tablet Take 2 [...] as of this encounter Miscellaneous Notes * Miscellaneous - Provider, Scanning - 10/24/2011 10:05 AM EDT * Ancillary Services Notes - Armani Stewart - 10/22/2011 12:04 PM EDT You had a CT Scan on @ Per [facility] Policy it is important that you stop taking your Metformin (Diabetic Medication) for 2 days following the injection of IV iodinated contrast. You can start taking yourMetformin on October 23 at noon. If you have any questions or concerns, contact your primary care provider. Also drink plenty of water following your CT Scan to help clear the IV Iodinated contrast out of your body. Thank You, [facility] CT Scan Dept * Ancillary Services Notes - Armani Stewart - 10/22/2011 12:02 PM EDT You had a CT Scan on @ Per [facility] Policy it is important that you stop taking your Metformin (Diabetic Medication) for 2 days following the injection of IV iodinated contrast. You can start taking yourMetformin on Wednesday August 10, 2011 at 8:45am. If you have any questions or concerns, contact your primary care provider. Also drink plenty of water following your CT Scan to help clear the IV Iodinated contrast out of your body. Thank You, [facility] CT Scan Dept documented in this encounter Plan of Treatment Upcoming Encounters Date Type Department Care Team (Latest Contact Info) Description 01/02/2024 1:30 PM EDT Laboratory Appointment Lab [address] [address] 01/02/2024 3:00 PM EDT Office Visit [place] [address] Adam Costa MD [facility] [place] [address] documented as of this encounter Procedures Procedure Name Priority Date/Time Associated Diagnosis Comments CT ANGIOGRAM ABDOMEN AND PELVIS W CONTRAST Routine 10/22/2011 12:12 PM EDT documented in this encounter Results * CTA OF ABDOMEN AND PELVIS WITH CONTRAST (10/22/2011 12:12 PM EDT) Anatomical Region Laterality Modality Abdomen, Pelvis Computed Tomogra phy 10/22/2011 12:1 2 PM EDT Narrative 10/22/2011 1:43 PM EDT Examination CTA of Abdomen and Pelvis With Contrast Clinical History S/P EVAR ZENITH AAA Comparison 04/23/2011. Technique Helical CT angiogram of the abdomen and pelvis was performed following oral and intravenous contrast (110 mL of Omnipaque 350). Multiplanar formatted images were reviewed. 3 dimensional images were generated on an independent work station Findings Vascular. Bifurcated endovascular stent graft with suprarenal fixation is unchanged in position; distal limbs terminate in the common iliac arteries. ??Patent celiac axis and superior mesenteric artery without focal stenosis. ??Left renal artery widely patent; origin of right renal artery partially obscured by artifact, however no high-grade stenosis is identified. ??The infrarenal aorta is tortuous. ??Centerline reformatted images demonstrate maximum transverse dimension of the aneurysm sac at 7.7 cm, marginally reduced from 7.9 cm on the comparison study and endoleak is again identified in the caudal aspect of the aneurysm sac at the level of aortic bifurcation. ??A Patent lumbar artery is identified at this level. 1.7 cm ??dilatation of the left internal iliac artery is unchanged. ??Both common femoral, external iliac, and common iliac arteries are patent. ??Stent graft is patent. Abdomen Lung bases are unremarkable. The spleen, adrenal glands, pancreas, and liver are unremarkable without focal lesions. Stable mid pole right renal cyst. ?? Stable focal cortical atrophy in the posterior cortex of the left kidney as well as lower pole medially which is associated with punctate calcifications. ?? No urothelial calcifications are seen. Gallbladder unremarkable. Pelvis No pelvic lymphadenopathy. ??Surgical clips noted in the right spermatic cord region. ??Small left inguinal hernia contains fat. ??Prostate is mildly enlarged. Bladder wall thickening likely on the basis of under distention of the urinary bladder. Fairly extensive sigmoid colonic diverticulosis is noted. Minimal fat stranding is seen at the junction of the descending and sigmoid colon. No colonic wall thickening is appreciated. ??Smaller diverticuli are scattered elsewhere throughout the colon. Impression Stable position of bifurcated endovascular stent graft with marginally decreased size of aneurysm sac. ??There is a persistent probable type 2 endoleak in the caudal aspect of the sacrum. Stable left internal iliac artery aneurysm Extensive sigmoid colonic diverticulosis; minimal javon colonic stranding at the junction of descending colon and sigmoid colon raises the possibility of acute diverticulitis; clinical correlation is necessary. Procedure Note Janessa Ortega MD - 10/22/2011 Examination CTA of Abdomen and Pelvis With Contrast Clinical History S/P EVAR ZENITH AAA Comparison 04/23/2011. Technique Helical CT angiogram of the abdomen and pelvis was performed followingoral and intravenous contrast (110 mL of Omnipaque 350). Multiplanar formattedimages were reviewed. 3 dimensional images were generated on an independent work station Findings Vascular. Bifurcated endovascular stent graft with suprarenal fixation is unchangedin position; distal limbs terminate in the common iliac arteries. Patentceliac axis and superior mesenteric artery without focal stenosis. Left renalartery widely patent; origin of right renal artery partially obscured byartifact, however no high-grade stenosis is identified. The infrarenal aorta is tortuous. Centerline reformatted images demonstrate maximum transverse dimension of the aneurysm sac at 7.7 cm, marginally reduced from 7.9 cm onthe comparison study and endoleak is again identified in the caudal aspect ofthe aneurysm sac at the level of aortic bifurcation. A Patent lumbar arteryis identified at this level. 1.7 cm dilatation of the left internal iliac artery is unchanged. Bothcommon femoral, external iliac, and common iliac arteries are patent. Stentgraft is patent. Abdomen Lung bases are unremarkable. The spleen, adrenal glands, pancreas, andliver are unremarkable without focal lesions. Stable mid pole right renal cyst. Stable focal cortical atrophy in the posterior cortex of the left kidneyas well as lower pole medially which is associated with punctatecalcifications. No urothelial calcifications are seen. Gallbladder unremarkable. Pelvis No pelvic lymphadenopathy. Surgical clips noted in the right spermaticcord region. Small left inguinal hernia contains fat. Prostate is mildlyenlarged. Bladder wall thickening likely on the basis of under distention of theurinary bladder. Fairly extensive sigmoid colonic diverticulosis is noted. Minimalfat stranding is seen at the junction of the descending and sigmoid colon. No colonic wall thickening is appreciated. Smaller diverticuli are scattered elsewhere throughout the colon. Impression Stable position of bifurcated endovascular stent graft with marginally decreased size of aneurysm sac. There is a persistent probable type 2endoleak in the caudal aspect of the sacrum. Stable left internal iliac artery aneurysm Extensive sigmoid colonic diverticulosis; minimal javon colonic strandingat the junction of descending colon and sigmoid colon raises the possibility ofacute diverticulitis; clinical correlation is necessary. Steven Borges MD IMG CT ORDERABLES documented in this encounter Visit Diagnoses Not on filedocumented in this encounter Administered Medications Inactive Administered Medications - up to 3 most recent administrations Medication Order MAR Action Action Date Dose Rate Site iohexol (OMNIPAQUE) 350 mg/mL injection 38,500 mg 38,500 mg (110 mL), Intravenous, ONCE PRN, 1 dose, Starting on 10/22/11 at 1157, Until 10/22/11 at 1207, Per Protocol, Routine Given 10/22/2011 12:07 PM EDT 38,500 mg documented in this encounter Care Teams Bill Of Materials Clerk Relationship Specialty Start Date End Date Rolando Zacarias MD PCP - General 04/12/11 09/15/16 documented as of this encounter
--- OUTSIDE RECORDS SUMMARY | 2023-12-21 07:53 | XMS_ITS | Encounter Summary ---
Author Organization [facility] Address [facility] [place] [address] Care Team Providers Care Relay Associate Name Role Phone Arely Moise MD Primary Care Provider [phone] Reason for Referral * Consultation (Routine) - Closed Specialty Diagnoses / Procedures Referred By Contact Referred To Contact Cardiac Rehabilitation Diagnoses Non-ST elevation myocardial infarction (NSTEMI) Bayron Oliva MD [facility] [place] [address] Cardiac Rehab, [address] [place] [address] Referral ID Status Reason Start Date Expiration Date V isits Requested Visits Authorized [id number] Closed Consult, Test & Treat 02/05/2017 08/04/2017 36 36 Reason for Visit * Auth/Cert Specialty Diagnoses / Procedures Referred By Contac t Referred To Contact Diagnoses NSTEMI (non-ST elevated myocardial infarction) NSTEMI ?CAD Procedures CARDIAC CATHETERIZATION Referral ID Status Reason Start Date Expiration Date Visits Re quested Visits Authorized [id number] 1 1 Encounter Details Date Type Department Care Team (Latest Contact Info) Description 02/03/2017 8:29 AM EDT - 02/05/2017 11:44 AM EDT Hospital Encounter [place] [id number] Inder Medley MD [facility] [place] [address] Bayron Oliva MD [facility] [place] [address] Non-ST elevation myocardial infarction (NSTEMI) Discharge Disposition: Home Social History Tobacco Use Types Packs/Day Years Used Date Smoking Tobacco: Some Days Pipe Smokeless Tobacco: Never Comments:pipe smoker, about 5 ounces a month Alcohol Use Standard Drinks/Week Comments No 0 (1 standard drink = 0.6 oz pur e alcohol) Sex and Gender Information Value Date Recorded Sex Assigned at Not on file Gender Identity Not on file Sexual Orientation Not on file documented as of this encounter Last Filed Vital Signs Vital Sign Reading Time Taken Comments Blood Pressure 150/80 02/05/2017 9:15 AM EDT Pulse 77 02/05/2017 9:15 AM EDT Temperature 36.5 ??C (97.7 ??F) 02/05/2017 8:40 AM ED T Respiratory Rate 16 02/05/2017 5:43 AM EDT Oxygen Saturation 96% 02/05/2017 8:45 AM EDT Inhaled Oxygen Concentration - - Weight 85 kg (187 lb 6.3 oz) 02/05/2017 6:35 AM EDT Height 175.3 cm (5' 9) 02/03/2017 8:39 AM EDT Body Mass Index 27.67 02/03/2017 8:39 AM EDT documented in this encounter Discharge Summaries * Lili David PA - 02/04/2017 8:09 PM EDT Discharge Summary Patient Name: Cesar Thompson Patient Age: 81 y.o. Language: Paraguayan Race: White Ethnicity: Not nor Admit date: 02/03/2017 Discharge date and time: 02/05/2017 Attending Physician: Bayron Oliva MD Discharge Physician: Bayron Oliva MD Follow-up Recommendations for Providers: 1. Continue clopidogrel 75 mg and aspirin 81 mg PO daily for 12 months otherwise told differently by Labor Gang Supervisor. 2. Please monitor heart rate and blood pressure. 3. Start metoprolol XL 100 mg daily 4. Discontinue verapamil 120 mg tablet PO 5. Resume metformin 500 mg tablet PO two times a day, needs to take his second metformin dose tonight. Inpatient Provider Contact Information: Lili Ryan PA-C [facility] Provider # [id number] Discharge Diagnoses (Hospital Problems) and Secondary Diagnoses (Chronic Problems): Active Hospital Problems Diagnosis ??? NSTEMI (non-ST elevated myocardial infarction) ??? HTN (hypertension) ??? Diabetes mellitus type 2, noninsulin dependent Resolved Hospital Problems Diagnosis Date Resolved No resolved problems to display. Active Non-Hospital Problems Diagnosis ??? AAA (abdominal aortic aneurysm) 04/12/11 s/p endograft repair of AAA ??? S/P hernia repair umbilical Operations/Major Procedures: Operations: Procedure(s) with comments: CARDIAC CATHETERIZATION - Procedure: Coronary Angiography (02/03/2017) Conclusions: * One vessel coronary artery disease (LAD) * Successful stent insertion of the mid LAD lesion * Successful angioplasty of the ostial D1 lesion * Recommend continuing clopidogrel 75 mg PO daily for 12 months (see DAPT Recommendations above for more information.) History of Presentation: HPI Comments: Mr. Thompson is an 81-year-old male with a past medical history of hypertension, AAA, hyperlipidemia and diabetes mellitus [id number] who presented to [facility] with complaint of inability to sleep and epigastric pain. He denied shortness of breath and palpitations. Patient has a history of smoking pipe occasionally. ?? Patient states yesterday morning, he woke up around 7:00 am feeling tired and not feeling himself. He states that he did a few errands during the day and [place] the [place]. He denied having any chest pain shortness of breath or palpitations during the day. Patient went to sleep around 11:00 at night. He became very restless while sleeping and at two in the morning he woke up with epigastric painwith no radiation. Pain was 3 out of 10. Patient decided to go to the ED. He drove himself. ?? [facility] did an EKG which showed sinus rhythm with first-degree blockand no acute ST elevations. There were nonspecific ST flattening throughout. At ED, he was given nitroglycerin and aspirin. Nitroglycerin did not help with the pain, just drop the systolic pressure by about 30 points. An chest x-ray was done which was unremarkable by radiology. Labs showed a troponin of 1.35 which is positive. A BUN of 19 and creatinine of 1.4. Patient had a magnesium which was low at 1.5 which was replaced at the ED. A second EKG was done which showed sinus rhythm at 75 first degree AV block with no ST elevation with some mild depression in V5 V6. Given abnormal troponin, EKG changes and chest discomfort is most likely a non-STEMI. ED called [facility] cardiology which recommended to start Plavix 300 mg orally and was started to heparin per ACS protocol. ?? Hospital Course: On admission to [facility], the patient had complaints of chest pain and some shortness of breath with exertion. Telemetry was attached which showed normal sinus rhythm. Heparin drip was infusing. [facility] records/transfer records were reviewed. Baseline labs were checked and/or drawn. NSTEMI Given the patient's risk factors and ECG changes, positive biomarkers, it was decided to proceed with coronary angiography. The patient went to the cardiac labor relations teacher for a diagnostic cath which showedone vessel coronary artery disease (LAD); successful stent insertion of the mid LAD lesion; successful angioplasty of the ostial D1 lesion.Echo showed EF 35% and wall motion abnormalities. There was also a notation of a possible LV thrombus. Echo images were reviewed with Dr. Oliva who did not feel that a LV thrombus was present. Furthermore, the risk of triple anticoagulation therapy in combination with the patients age, outweighed the benefit of treatment there of. Due to findings of NSTEMI and low EF, verapamil was discontinued and metoprolol was started. Is recommended to have the patient on Plavix, aspirin, myra inhibitor, beta juma and statin. Cardiac Rehab is recommended. Hypertension The patient should continue on metoprolol XL 100 mg at home. Continue lisinopril given reduced EF 35 %. On this medication regime, the patient's blood pressure range has been (110-131)/(56-84). Diabetes Mellitus type 2, non insulin dependent Routine screening labs revealed H A1c 6.2 while taking metformin 500 mg orally twice a day at home. Routine screening labs revealed the following: HA1c 6.2 TSH 1.18 Smoking cessation was advised & discussed. The patient was evaluated by the cardiac rehab team. The patient tolerated supervised ambulation inthe hallway and up/downstairs with no anginal symptoms. It was recommended that the patient return home and participate in a supervised cardiac rehab program. The patient was discharged home in stable condition. Functional and Cognitive Status: Alert and oriented to person, place and time. Normal mood and affect. Ambulatory- independent. Important Studies and Lab Data: Labs: Lab Results Component Value Date WBC 11.4 (H) 02/05/2017 HGB 14.0 02/05/2017 HCT 41.1 02/05/2017 PLATELET 168 02/05/2017 Recent Labs 02/03/17 0935 INR 1.0 Lab Results Component Value Date NA 140 02/05/2017 K 4.3 02/05/2017 CL 104 02/05/2017 CO2 24 02/05/2017 BUN 19 02/05/2017 CREATININE 1.46 02/05/2017 Recent Labs 02/03/17 1500 TSH 1.18 Recent Labs 02/04/17 0333 HA1C 6.2* Recent Labs 02/04/17 0333 02/03/17 2100 02/03/17 1500 CK 421* 329* 305* TROPONINT 0.95* 0.71* 0.48* Lab Results Component Value Date CHLPL 106 02/04/2017 HDL 37 (L) 02/04/2017 CHOLHDL 2.9 02/04/2017 TRIG 171 02/04/2017 LDLDIRECT 47 02/04/2017 Studies: Echo (02/03/2017) SUMMARY: 1. The left ventricular chamber size [...] No prior study for comparison. See report for remainder of findings. Pending Studies and Lab Data: none Discharge Conditions/Prognosis: Ambulatory without chest pain or palpitations. Discharge to: home Updated Allergies/ADRs: No Known Allergies Immunizations Given this Hospitalization: Immunization History Administered Date(s) Administered ??? Influenza PF, Split (High Dose) 02/05/2017 Discharge Medications: Your Medications New Medications Dose Details clopidogrel 75 mg Tab Commonly known as: PLAVIX Take 1 tablet by mouth daily. Start taking on: 02/06/2017 75 mg Quantity: 90 tablet Refills: 3 meTOPROLOL succinate 100 mg Tablet sr Commonly known as: TOPROL-XL Take 1 tablet by mouth daily. 100 mg Quantity: 90 tablet Refills: 3 nitroGLYcerin 0.4 mg Subl Commonly known as: NITROSTAT Place 1 tablet under the tongue every 5 minutes as needed for Chest pain. 0.4 mg Quantity: 25 tablet Refills: 1 Continued medications with new dosing Dose Details atorvastatin 40 mg Tab Commonly known as: LIPITOR Take 1 tablet by mouth daily. What changed: - medication strength - how much to take 40 mg Quantity: 90 tablet Refills: 3 Continued medications, unchanged Dose Details aspirin 81 mg Tbec Take 81 mg by mouth daily. 81 mg Refills: 0 lisinopril 20 mg Tab Commonly known as: PRINIVIL;ZESTRIL Take 20 mg by mouth daily. 20 mg Refills: 0 metFORMIN 500 mg Tab Commonly known as: GLUCOPHAGE Take 500 mg by mouth 2 times daily (with meals). 500 mg Refills: 0 tamsulosin 0.4 mg Cp24 Commonly known as: FLOMAX Take 0.4 mg by mouth daily. 0.4 mg Refills: 0 STOPPED Medications FISH OIL 1,000 mg Cap Generic drug: fish oil-omega-3 fatty acids with vitamin E verapamil 120 mg Tab Commonly known as: CALAN Smoking Status at Discharge: History Smoking Status ??? Current Some Day Smoker ??? Types: Pipe Smokeless Tobacco ??? Never Used Comment: pipe smoker, about 5 ounces a month Instructions Given to Patient at Discharge: There are no outpatient Patient Instructions on file for this admission. Future Appointments and Orders Future Appointments Provider Department Dept Phone 03/10/2017 2:00 PM Shoshana Gaspar APRN Cardiology at [facility] [phone] Future Orders Complete By Expires Referral to Cardiac Rehab [[id number] Custom] As directed Process Instructions: If no progress note charted, please enter Clinical details in comments. Scheduling Instructions: Questions: My question or request is: NSTEMI, PCI. Cardiac rehab at [facility] Discharge References/Attachments MYRA INHIBITORS AND ARBS: GENERAL INFO (CHILEAN) PCI (PERCUTANEOUS CORONARY INTERVENTION): POST-OP (CHILEAN) HYPERTENSION: GENERAL INFO (CHILEAN) Lili Ryan PA-C 02/05/2017 documented in this encounter Discharge Instructions * Discharge Instructions* Shoshana Gaspar APRN - 02/05/2017 10:31 AM EDT Anti-coagulation follow up: Continue on plavix and aspirin for at least 12 months until otherwise told by his Labor Gang Supervisor. Call your doctor if: Chest pain, shortness of breath, pain or swelling in legs occurs. If you have non-emergent questions between now and the time of your follow up appointments: During 8am-5pm Friday through Friday call [phone] to speak with a nurse in the cardiology clinic All other times call [phone] and ask to speak to the checker cashier manager of environmental services. Return to work: One week Driving: No driving for 48 hours after catheterization. Follow up Appointments: PCP Arely Moise MD [phone] Your follow up appointment is scheduled for February 12, 2017 at 10:00 am Cardiology [facility] : Shoshana Gaspar NP Your follow up appointment is scheduled for March at 1:45 pm. Resume metformin 500 mg tablet PO two times a day tonight (02/05) for evening dose * Attachments The following attachments cannot be sent through Care Everywhere. * MYRA INHIBITORS AND ARBS: GENERAL INFO (CHILEAN) * PCI (PERCUTANEOUS CORONARY INTERVENTION): POST-OP (CHILEAN) * HYPERTENSION: GENERAL INFO (CHILEAN) documented in this encounter Medications at Time of Discharge Medication Sig Dispensed Refills Start Date End Date nitroGLYcerin (NITROSTAT) 0.4 mg Tablet, Sublingual Place 1 tablet under the tongue every 5 minutes as needed for Chest pain. 25 tablet 1 02/05/2017 tamsulosin (FLOMAX) 0.4 mg Capsule, Sust. Release 24 hr Take 0.4 mg by mouth daily. clopidogrel (PLAVIX) 75 mg Tablet Take 1 tablet by mouth daily. 90 tablet 3 02/06/2017 11/09/2020 meTOPROLOL succinate (TOPROL-XL) 100 mg Tablet Sustained Release 24 hr Take 1 tablet by mouth daily. 90 tablet 3 02/05/2017 03/10/2017 atorvastatin (LIPITOR) 40 mg Tablet Take 1 tablet by mouth daily. 90 tablet 3 02/05/2017 03/10/2017 aspirin 81 mg Tablet, Delayed Release (E.C.) Take 81 mg by mouth daily. 11/09/2020 lisinopril (PRINIVIL;ZESTRIL) 20 mg Tablet Take 20 mg by mouth daily. 11/09/2020 metFORMIN (GLUCOPHAGE) 500 mg tablet Take 500 mg by mouth 2 times daily (with meals). 11/09/2020 documented as of this encounter Progress Notes * Bayron Oliva MD - 02/05/2017 7:30 AM EDT Inpatient Cardiology Progress Note Patient Name: Cesar Thompson Service: SOIL EXPERT / PA Responsible Attending: Bayron Oliva MD Reason for continued hospitalization: Evaluation and management of NSTEMI Active Problems: Active Hospital Problems Diagnosis ??? NSTEMI (non-ST elevated myocardial infarction) ??? HTN (hypertension) ??? Diabetes mellitus type 2, noninsulin dependent Resolved Hospital Problems Diagnosis Date Resolved No resolved problems to display. Interval History: Didn't slept well last night. Radial pulse is present. Denies chest pain, SOB,palpitations. Had bowel movement yesterday. Review of Systems: Review of Systems Constitutional: Negative. HENT: Negative. Eyes: Negative for visual disturbance. Respiratory: Negative for apnea, cough, shortness of breath and wheezing. Gastrointestinal: Negative for abdominal pain, constipation, diarrhea, nausea and vomiting. Skin: Negative. Neurological: Negative for dizziness, light-headedness and headaches. Psychiatric/Behavioral: Negative for agitation, behavioral problems and confusion. The patient is not nervous/anxious. Telemetry: HR 70s-80s: sinus rhythm Meds: Scheduled Meds: ??? meTOPROLOL succinate 100 mg Oral Daily ??? lisinopril 20 mg Oral Daily ??? aspirin 81 mg Oral Daily ??? tamsulosin 0.4 mg Oral Daily ??? clopidogrel 75 mg Oral Daily ??? atorvastatin 40 mg Oral QPM ??? insulin lispro 1-4 Units Subcutaneous TID AC Continuous Infusions: PRN Meds:flu vacc (65 yrs+) (PF), docusate sodium, dextrose 50% OR glucagon (human recombinant), acetaminophen, nitroGLYcerin, morphine Physical Exam: Vital Signs: Last value Range last 8 hrs Temperature Temp: 36.5 ??C (97.7 ??F) Temp: [36.5 ??C (97.7 ??F)-37.1 ??C (98.8 ??F)] Heart Rate Heart Rate: 75 Heart Rate: [75-78] Blood Pressure BP: 136/76 BP: (118-136)/(72-76) Respiratory Rate Resp: 16 Resp: [16] SpO2 SpO2: 96 % SpO2: [96 %] Patient Vitals for the past 168 hrs: Weight 02/05/17 0635 85 kg (187 lb 6.3 oz) 02/04/17 0646 84.7 kg (186 lb 11.7 oz) 02/03/17 0839 84.7 kg (186 lb 11.7 oz) Intake/Output Summary (Last 24 hours) at 02/05/17 0913 Last data filed at 02/05/17 0800 Gross per 24 hour Intake 1700 ml Output 2725 ml Net -1025 ml Physical Exam Constitutional: He is oriented to person, place, and time. He appears well- developed and well-nourished. HENT: Head: Normocephalic and atraumatic. Eyes: Pupils are equal, round, and reactive to light. Neck: Normal range of motion. Neck supple. Mobile nontender mass under right submaxillary area Cardiovascular: Normal rate, regular rhythm, normal heart sounds and intact distal pulses. Pulmonary/Chest: Effort normal and breath sounds normal. He has no wheezes. He has no rales. Abdominal: Soft. Bowel sounds are normal. He exhibits no distension and no mass. There is no tenderness. There is no rebound and no guarding. Musculoskeletal: He exhibits no edema. Neurological: He is alert and oriented to person, place, and time. Skin: Skin is warm and dry. Right wrist is clean, dry and intact. No hematoma or ooze Psychiatric: He has a normal mood and affect. His behavior is normal. Judgment and thought content normal. Lab Comments: Recent Labs 02/05/173 02/04/17 0333 02/03/17 0935 WBC 11.4* 14.6* 9.5 HGB 14.0 14.6 15.3 HCT 41.1 41.8 44.5 PLATELET 168 192 204 Recent Labs 02/03/17 0935 INR 1.0 Recent Labs 02/05/17 0343 02/04/17 0333 02/03/17 0935 NA 140 139 140 K 4.3 4.2 4.0 CL 104 102 103 CO2 24 23 22 BUN 19 15 15 CREATININE 1.46 1.34 1.19 Recent Labs 02/04/17 0333 AST 57* ALT 34 ALKPHOS 71 BILITOT 0.7 BILIDIR 0.1 Recent Labs 02/05/17 0343 02/04/17 0333 02/03/17 0935 CALCIUM 8.8 8.7 9.3 MAGNESIUM 0.77 0.77 -- Recent Labs 02/04/17 0333 02/03/17 2100 02/03/17 1500 CK 421* 329* 305* TROPONINT 0.95* 0.71* 0.48* Pertinent Radiographic/Diagnostic Results: I have independently visualized the following studies: ECG:(02/05/17) Sinus bradycardia with sinus arrhythmia with 1st degree A-V block T wave abnormality consider anterolateral ischemia I reviewed this ECG. Cath: (02/03/17) Conclusions: * One vessel coronary artery disease (LAD) * Successful stent insertion of the mid LAD lesion * Successful angioplasty of the ostial D1 lesion * Recommend continuing clopidogrel 75 mg PO daily for 12 months (see DAPT Recommendations above for more information.) ECHO (02/03/17) SUMMARY: 1. The left ventricular chamber size [...] See report below for remainder of findings. Assessment: Cesar Thompson is a 81 y.o. male with PMH of HTN,AAA, hyperlipidemia, DM type 2 non insulin dependent who presented with chest pain( epigastric area) and some SOB. Echo showed EF is 35% with wall motion abnormalities. Cath showed one vessel coronary artery disease (LAD). A stent was placed on mid LAD lesion and an angioplasty was done of the ostial D1 lesion.Patient is going to be discharged today with Plavix, aspirin, metoprolol, lisinopril and statin. Plan: 1. NSTEMI -S/P PCI -Cardiac Rehab assessed him. - continue Plavix 75 mg and aspirin 81 mg daily for 12 months per urgent care. - continue Atorvastin, lisinopril. - Discontinue short acting metoprolol to metoprolol XL daily - Monitor vital signs 2. HTN -SBP range 118s-130s -continue lisinopril, metoprolol -Monitor vital signs 3. Diabetes mellitus type 2, non insulin dependent -HA1c 6.2 -fingersticks -uses metformin at home Discussed with Bayron Oliva MD Maria M Nunez Stiglich, PA 02/05/2017 Cardiology staff addendum I have discussed, reviewed and agree with the documented interval history, Physical findings, Assessment and Plan of care. I have independently interviewed and examined the patient myself and have noadditions to the interval history, physical, assessment or plan of care. * Anne-Marie Mullins RN - 02/05/2017 5:47 AM EDT OUTCOME EVALUATION NOTE: OUTCOME SUMMARY: Cesar had a good night, slept between care. SR/ST on tele with 1'AVB (MO 0.24), frequent PACs, occasional NS atrial trigem, HR 45-107. Pt sats well on RA; denied pain/discomfort and SOB throughout the shift. R radial cath site VIDEO GAME ENGINEER, slightly ecchymotic, but soft. PLAN MOVING FORWARD: Planned for early D/C INDIVIDUALIZED FALL PREVENTION INTERVENTIONS: Patient-specific fall risk factors per assessment: [current deficits]: New environment, recent procedure Assistance [level of assistance required for transfers and ambulation]: SBA-Independent Supervision [direct monitoring required during toileting and ADLs]: Eyes only, call montanez within reach Surveillance [continuous indirect monitoring]: Hourly rounding, room near nurses station, telemetrymonitoring Patient-specific fall prevention interventions for sensory deficits provided, if applicable: N/A CPG GOAL OUTCOME EVALUATION: On-going * Bayron Oliva MD - 02/04/2017 3:51 PM EDT Inpatient Cardiology Progress Note Patient Name: Cesar Thompson Service: SOIL EXPERT / PA Responsible Attending: Bayron Oliva MD Reason for continued hospitalization: Evaluation and management of NSTEMI Active Problems: Active Hospital Problems Diagnosis ??? NSTEMI (non-ST elevated myocardial infarction) ??? HTN (hypertension) ??? Diabetes mellitus type 2, noninsulin dependent Resolved Hospital Problems Diagnosis Date Resolved No resolved problems to display. Interval History: Slept well last night. Right wrist is clean, dry and intact. No hematoma or ooze.Radial pulse is present. Intact color, sensation and motion. Capillary refill is under 2 seconds. Denies chest pain, SOB,palpitations. Review of Systems: Review of Systems Constitutional: Negative. HENT: Negative. Eyes: Negative for visual disturbance. Respiratory: Positive for shortness of breath (mild wild exertion). Negative for apnea, cough and wheezing. Gastrointestinal: Positive for abdominal pain (heartburn in epigastric area). Negative for constipation, diarrhea, nausea and vomiting. Skin: Negative. Neurological: Negative for dizziness, light-headedness and headaches. Psychiatric/Behavioral: Positive for confusion (some confusion in the past 4 months memmory). Negative for behavioral problems. The patient is not nervous/anxious. Telemetry: HR: 65 sinus rhythm Meds: Scheduled Meds: ??? lisinopril 20 mg Oral Daily ??? aspirin 81 mg Oral Daily ??? tamsulosin 0.4 mg Oral Daily ??? clopidogrel 75 mg Oral Daily ??? atorvastatin 40 mg Oral QPM ??? insulin lispro 1-4 Units Subcutaneous TID AC ??? meTOPROLOL tartrate 25 mg Oral Q6H SANTY Continuous Infusions: PRN Meds:flu vacc (65 yrs+) (PF), docusate sodium, dextrose 50% OR glucagon (human recombinant), acetaminophen, nitroGLYcerin, morphine Physical Exam: Vital Signs: Last value Range last 8 hrs Temperature Temp: 36.5 ??C (97.7 ??F) Temp: -- Heart Rate Heart Rate: 73 Heart Rate: [73-85] Blood Pressure BP: 131/76 BP: (126-131)/(75-76) Respiratory Rate Resp: 22 Resp: [16-22] SpO2 SpO2: 97 % SpO2: -- Patient Vitals for the past 168 hrs: Weight 02/04/17 0646 84.7 kg (186 lb 11.7 oz) 02/03/17 0839 84.7 kg (186 lb 11.7 oz) Intake/Output Summary (Last 24 hours) at 02/04/17 1623 Last data filed at 02/04/17 0907 Gross per 24 hour Intake 610 ml Output 350 ml Net 260 ml Physical Exam Constitutional: He is oriented to person, place, and time. He appears well- developed and well-nourished. HENT: Head: Normocephalic and atraumatic. Eyes: Pupils are equal, round, and reactive to light. Neck: Normal range of motion. Neck supple. Mobile nontender mass under right submaxillary area Cardiovascular: Normal rate, regular rhythm, normal heart sounds and intact distal pulses. Pulmonary/Chest: Breath sounds normal. He has no wheezes. He has no rales. Abdominal: Soft. Bowel sounds are normal. He exhibits no distension and no mass. There is no tenderness. There is no rebound and no guarding. Musculoskeletal: He exhibits no edema. Neurological: He is alert and oriented to person, place, and time. Skin: Skin is warm and dry. Psychiatric: He has a normal mood and affect. His behavior is normal. Judgment and thought content normal. Lab Comments: Recent Labs 02/04/17 0333 02/03/17 0935 WBC 14.6* 9.5 HGB 14.6 15.3 HCT 41.8 44.5 PLATELET 192 204 Recent Labs 02/03/17 0935 INR 1.0 Recent Labs 02/04/17 0333 02/03/17 0935 NA 139 140 K 4.2 4.0 CL 102 103 CO2 23 22 BUN 15 15 CREATININE 1.34 1.19 Recent Labs 02/04/17 0333 AST 57* ALT 34 ALKPHOS 71 BILITOT 0.7 BILIDIR 0.1 Recent Labs 02/04/17 0333 02/03/17 0935 CALCIUM 8.7 9.3 MAGNESIUM 0.77 -- Recent Labs 02/04/17 0333 02/03/17 2100 02/03/17 1500 CK 421* 329* 305* TROPONINT 0.95* 0.71* 0.48* Pertinent Radiographic/Diagnostic Results: I have independently visualized the following studies: ECG:(02/04/17) Sinus rhythm with 1st degree A-V block Rightward axis Low voltage QRS Limb lead I reviewed this ECG. Cath: (02/03/17) Conclusions: * One vessel coronary artery disease (LAD) * Successful stent insertion of the mid LAD lesion * Successful angioplasty of the ostial D1 lesion * Recommend continuing clopidogrel 75 mg PO daily for 12 months (see DAPT Recommendations above for more information.) ECHO (02/03/17) SUMMARY: 1. The left ventricular chamber size [...] See report below for remainder of findings. Assessment: Cesar Thompson is a 81 y.o. male with PMH of HTN,AAA, hyperlipidemia, DM type 2 non insulin dependent who presented with chest pain( epigastric area) and some SOB which started yesterday morning. Echo showed EF is 35% with wall motion abnormalities. Cath showed one vessel coronary artery disease (LAD). A stent was placed on mid LAD lesion and an angioplasty was done of the ostial D1 lesion. Plan: 1. NSTEMI -S/P PCI - continue Plavix 75mg and aspirin 81 mg daily for 12 months per urgent care. - continue Atorvastin 40 mg daily - continue metoprolol - continue lisinopril - Monitor vital signs 2. HTN -SBP range 120s-130s -continue llisinopril daily -continue metoprolol daily -Monitor vital signs 3. Diabetes mellitus type 2, non insulin dependent -HA1c 6.2 -fingersticks -uses metformin at home Discussed with Bayron Oliva MD Maria M Nunez Stiglich, PA 02/04/2017 Cardiology staff addendum I have discussed, reviewed and agree with the documented interval history, Physical findings, Assessment and Plan of care. I have independently interviewed and examined the patient myself and have noadditions to the interval history, physical, assessment or plan of care. documented in this encounter H&P Notes * Bayron Oliva MD - 02/03/2017 9:32 AM EDT Cardiology Admission H&P Patient Name: Cesar Thompson Date of : 1935 Age: 81 y.o. Hospital Admit Date: 02/03/2017 Inpatient Attending: Bayron Oliva MD PCP: Arely Moise MD Presenting Diagnosis/Chief Complaint: NSTEMI Active Problem List: Active Hospital Problems Diagnosis ??? NSTEMI (non-ST elevated myocardial infarction) Resolved Hospital Problems Diagnosis Date Resolved No resolved problems to display. History of Present Illness: HPI Comments: Mr. Thompson is an 81-year-old male with a past medical history of hypertension, AAA, hiperlididemia and diabetes mellitus [id number] who presented to [facility] with complaint of inability to sleep and epigastric pain. He denied shortness of breath and palpitations. Patient has a history of smoking pipe occasionally. Patient states yesterday morning, he woke up around 7:00 am feeling tired and not feeling himself. He states that he did a few errands during the day and [place] the [place]. He denied having any chest pain shortness of breath or palpitations during the day. Patient went to sleep around 11:00 at night. He became very restless while sleeping and at two in the morning he woke up with epigastric painwith no radiation. Pain was 3 out of 10. Patient decided to go to the ED. He drove himself. [facility] did an EKG which showed sinus rhythm with first-degree blockand no acute ST elevations. There were nonspecific ST flattening throughout. At ED he was given nitroglycerin and aspirin. Nitroglycerin did not help with the pain,s just drop the systolic pressure by about 30 points. An chest x-ray was done which was unremarkable by radiology. Labs showed a troponin of 1.35 which is positive. A BUN of 19 and creatinine of 1.4. Patient had a magnesium which was low at 1.5 which was replaced at the ED. A second EKG was done which showed sinus rhythm at 75 first degree AV block with no ST elevation with some mild depression in V5 V6. Given abnormal troponin, EKG changes and chest discomfort is most likely a non-STEMI. ED called [facility] cardi[facility] which recommended to start Plavix 300 mg orally and was started to heparin per ACS protocol. Past Medical History: Past Medical History: Diagnosis Date ??? AAA (abdominal aortic aneurysm) 04/12/2011 ??? HTN (hypertension) 04/12/2011 ??? NIDDM (non-insulin dependent diabetes mellitus) 04/12/2011 ??? S/P hernia repair 04/12/2011 Surgical History/Problems: Past Surgical History: Procedure Laterality Date ??? PRG PLACEMENT EXTENSION PRGSTHESIS FOR ENDOVASC REPAIR AAA 04/12/2011 @PLACE EXT EVG INTRARENAL AORTIC\ILIAC ARTERY ANEURYSM, S&I performed by ACACIA BRYANT at [facility] OR ??? PRO AAA REPAIR, 1ST VESSEL, EXTENSION PROSTH 04/12/2011 @EVG-PLACEMENT, CUFF OR EXT. AORTIC OR ILIAC ANEURYSM REPAIR, GORE performed by ACACIA BRYANT at [facility] OR ??? PRO AAA REPAIR, MODULR BIFUR PROSTH, 2-DOCK 04/12/2011 @EVG, AAA, W\ MODULAR BIFURCATED PROS. W\ 2 DOCKING LIMBS performed by ACACIA BRYANT at [facility] OR ??? PRO AAA REPR, EXPOSE FEMORAL ART, GROIN INCIS 04/12/2011 @EXPOSURE, OPEN FEM. ARTERY FOR ENDOVASCULAR PROSTHESIS, GROIN-FABIANA performed by ACACIA BRYANT at [facility] OR ? ? PRO ENDOVASC REPAIR INFRARENAL AAA/DISSECTION S&I 04/12/2011 @EVG, INFRARENAL AAA OR DISSECTION, S&I performed by ACACIA BRYANT at [facility] OR Significant Family History: No family history on file. Social History: Social History Social History ??? Marital status: Spouse name: N/A ??? Number of children: N/A ??? Years of education: N/A Occupational History ??? Not on file. Social History Main Topics ??? Smoking status: Current Some Day Smoker Types: Pipe ??? Smokeless tobacco: Not on file Comment: pipe smoker, about 5 ounces a month ??? Alcohol use No ??? Drug use: Not on file ??? Sexual activity: Not on file Other Topics Concern ??? Do You Live Alone? No Social History Narrative REVIEW OF SYSTEMS: Review of Systems Constitutional: Positive for fatigue (feeling for past 3 weeks). Negative for activity change, appetite change, chills, diaphoresis and fever. HENT: Positive for hearing loss (Can't hear from left ear. ). Eyes: Positive for redness. Negative for discharge, itching and visual disturbance. Respiratory: Negative for apnea, cough, choking, chest tightness and shortness of breath. Cardiovascular: Negative for chest pain, palpitations and leg swelling. Gastrointestinal: Positive for abdominal pain (epigastric 2/10). Negative for blood in stool, constipation, diarrhea, nausea and vomiting. Musculoskeletal: Positive for back pain (lowe back for a long time). Negative for gait problem, myalgias, neck pain and neck stiffness. Skin: Negative. Allergic/Immunologic: Negative for environmental allergies and food allergies. Neurological: Negative for dizziness, facial asymmetry, weakness, light- headedness, numbness and headaches. Has been feeling sometimes confused for the past 3-4 months. Psychiatric/Behavioral: Negative. Medications: Prescriptions Prior to Admission Medication Sig Dispense Refill Last Dose ??? enalapril (VASOTEC) 10 mg Tablet Take 10 mg by mouth daily. ??? verapamil (CALAN-SR) 180 mg Tablet Sustained Release Take 180 mg by mouth 3 times daily. ??? pravastatin (PRAVACHOL) 20 mg Tablet Take 20 mg by mouth daily. ??? aspirin 81 mg Tablet, Delayed Release (E.C.) Take 81 mg by mouth daily. ??? tamsulosin (FLOMAX) 0.4 mg Capsule, Sust. Release 24 hr Take 0.4 mg by mouth daily. ??? [place]-3 Fatty Acids-Vitamin E (FISH OIL) 1,000 mg Cap Take by mouth daily. Reported on 09/16/2016 Not Taking at Unknown time ??? metFORMIN (GLUCOPHAGE) 500 mg tablet Take 500 mg by mouth 2 times daily (with meals). Taking Allergies: No Known Allergies PHYSICAL EXAM: Last set of vital signs: BP (!) 149/96 (BP Location (NBP): Left arm) Pulse 70 Temp 36.4 ??C (97.5 ??F) (Oral) Resp 17 Ht 175.3 cm (5' 9) Wt 84.7 kg (186 lb 11.7 oz) SpO2 98% BMI 27.58 kg/m2 Physical Exam Constitutional: He is oriented to person, place, and time. He appears well- developed and well-nourished. No distress. HENT: Head: Normocephalic. Nose: Nose normal. Eyes: Conjunctivae are normal. Pupils are equal, round, and reactive to light. Right eye exhibits no discharge. Left eye exhibits no discharge. No scleral icterus. Neck: Normal range of motion. Neck supple. Has non tender mobile nodule under right lateral jaw. Cardiovascular: Normal rate, regular rhythm and normal heart sounds. Exam reveals no gallop and no friction rub. No murmur heard. Pulmonary/Chest: Effort normal and breath sounds normal. No stridor. He has no wheezes. He has no rales. He exhibits no tenderness. Abdominal: Soft. Bowel sounds are normal. He exhibits distension (due to adipose tissue). He exhibits no mass. There is no tenderness. There is no rebound and no guarding. Musculoskeletal: He exhibits edema (Bilateral LE pitting edema +1). He exhibits no tenderness. Neurological: He is alert and oriented to person, place, and time. Skin: Skin is warm. He is not diaphoretic. Psychiatric: He has a normal mood and affect. His behavior is normal. Judgment and thought content normal. Diagnostics: ECG: (02/03/17) Sinus rhythm with 1st degree A-V block Inferior infarct , age undetermined T wave abnormality, consider anterolateral ischemia I personally reviewed this study. LABS: Recent Results (from the past 24 hour(s)) Cardiac Enzymes Result Value Ref Range Troponin-T 0.31 (H) 0.00 - 0.00 ng/mL CK, Total 264 (H) 0 - 200 unit/L Basic Metabolic Panel (non-fasting) Result Value Ref Range Glucose Lvl 159 65 - 199 mg/dL BUN 15 10 - 20 mg/dL Creatinine 1.19 0.80 - 1.50 mg/dL Sodium 140 135 - 145 mmol/L Potassium 4.0 3.5 - 5.0 mmol/L Chloride 103 98 - 107 mmol/L CO2 22 22 - 31 mmol/L Anion Gap 15 5 - 15 mmol/L Calcium 9.3 8.5 - 10.5 mg/dL Estimated GFR 59 (L) >=60 Prothrombin Time Result Value Ref Range PT 14.1 12.0 - 15.0 sec INR 1.0 0.9 - 1.1 APTT Result Value Ref Range PTT 64 (H) 25 - 35 sec pro-Brain Natriuretic Peptide Result Value Ref Range ProBNP 1411 (H) <=450 pg/mL Hemogram Result Value Ref Range WBC 9.5 4.0 - 9.5 x10(3)/mcL RBC 4.99 4.58 - 5.54 x10(6)/mcL Hemoglobin 15.3 13.7 - 16.5 gm/dL Hematocrit 44.5 40.5 - 48.5 % MCV 89.2 82.9 - 93.1 fL MCH 30.7 27.5 - 32.1 pg MCHC 34.4 32.0 - 35.7 gm/dL Platelets 204 145 - 357 x10(3)/mcL RDWSD 37.7 36.0 - 45.0 fL RDWCV 11.8 11.4 - 13.8 % MPV 10.3 7.6 - 12.9 fL nRBC % Auto 0.0 % nRBC Abs Auto 0.000 0.000 - 0.000 x10(3)/mcL Differential, Automated Result Value Ref Range Neutrophils % 68.5 % Neutr Abs (ANC) 6.52 (H) 1.70 - 6.10 x10(3)/mcL Lymphocytes % 20.1 % Lymphocytes Abs 1.9 0.9 - 3.2 x10(3)/mcL Monocytes % 7.5 % Monocyte Abs 0.7 0.3 - 0.9 x10(3)/mcL Eosinophils % 2.9 % Eosinophils Abs 0.3 0.0 - 0.4 x10(3)/mcL Basophils % 0.7 % Basophils Abs 0.1 0.0 - 0.1 x10(3)/mcL Immature Gran % 0.30 % Tonya Gran Abs 0.03 0.00 - 0.04 x10(3)/mcL POCT Glucose Result Value Ref Range POC Glucose 148 65 - 199 mg/dL POCT Glucose Result Value Ref Range POC Glucose 138 65 - 199 mg/dL ASSESSMENT: Mr. Thompson is an 81-year-old male with a past medical history of hypertension, AAA, hiperlididemia and diabetes mellitus [id number] who presents to [facility] with complaint of inability to sleep and epigastric pain. He denied shortness of breath and palpitations. Patient has a history of smoking pipe occasionally.Labs showed a troponin of 1.35 which is positive. EKG which showed sinus rhythm with first- degree block and no acute ST elevations. There were nonspecific ST flattening throughout. Ruled in for NSTEMI planned to get ECHO and Left Cathtoday. TREATMENT PLAN: NSTEMI -Continue heparin drip. -Echo ordered -Left cath to rule out vessel occlusion -NPO until cath is done -Continue aspirin,plavix, metoprolol,statin - Continue trend cardio enzymes -Cath consent obtained HTN -Continue verapamil, metoprol -holding lisinopril pre-cath and to allow room for beta juma Hiperlipidemia - continue atorvastatin as indicated Diabetes Mellitus type 2 -Discontinue metformin. -Follow insulin protocol. -Monitor glucose levels -check A1c Provider: QUINN Ness Provider #: [id number] 02/03/2017 Cardiology staff addendum I have discussed, reviewed and agree with the documented HPI, past medical history, social history,family history, ROS, medication history, Physical findings, Assessment and Plan of care. I have independently interviewed and examined the patient myself and have no additions to the history, physical, assessment or plan of care. documented in this encounter Miscellaneous Notes * Plan of Care - Angie Escobar RN - 02/04/2017 6:26 PM EDT Problem: Patient Care Overview Goal: Plan of Care Review Outcome: Ongoing (Interventions Implemented as Appropriate) 02/04/171800 Plan of Care Review Progress progress toward functional goals as expected Coping/Psychosocial Plan Of Care Reviewed With patient OUTCOME EVALUATION NOTE: OUTCOME SUMMARY:Mr Thompson Has Been Free of chest pain though out the day . Around 515pm He did start to Having Increasing episodes Of atrial bigem and trigem but remained asymptomatic . All blood Pressures Remain Stable . Metoprolol Given early and physician was notified PLAN MOVING FORWARD: Plan for early Discharge tomorrow . Ride home has been Confirmed INDIVIDUALIZED FALL PREVENTION INTERVENTIONS: Patient-specific fall risk factors per assessment: [current deficits]: Generalized weakness Assistance [level of assistance required for transfers and ambulation]: Up with a stand by assist Supervision [direct monitoring required during toileting and ADLs]: Placed near Nursing work station for Closer observation Surveillance [continuous indirect monitoring]: Tel and hourly rounding Patient-specific fall prevention interventions for sensory deficits provided, if applicable: [X] No CPG GOAL OUTCOME EVALUATION: Goal: Fall Prevention-Safe Patient Handling Outcome: Ongoing (Interventions Implemented as Appropriate) 02/03/17199902/04/17 0602/04/17 180 Musculoskeletal Interventions Muscle Strengthening -- -- activity/mobility promoted Daily Care Interventions Self-Care Promotion -- -- independence encouraged;BADL personal routines maintained;safe use of adaptive equipment encouraged Vann Fall Risk History of Falling 0 -- -- Secondary Diagnosis 15 -- -- Ambulatory Aids 0 -- -- Intravenous Therapy/Heparin/Saline Lock 20 -- -- Gait/Transferring 0 -- -- Mental Status 0 -- -- Score 35 -- -- OTHER Vann Fall Risk Med -- -- Restraint Interventions Safety Promotion/Fall Prevention -- safety round/check completed;nonskid shoes/slippers when out ofbed;fall prevention program maintained;muscle strengthening facilitated -- Positioning Body Position independent -- -- Goal: Infection Control Outcome: Ongoing (Interventions Implemented as Appropriate) 02/03/17199902/04/17 1000 Safety Interventions Isolation Precautions standard precautions maintained -- Infection Prevention rest/sleep promoted;personal protective equipment utilized;equipment surfaces disinfected;environmental surveillance performed;single patient room provided -- Coping Strategies Supportive Measures -- active listening utilized Goal: Discharge Needs Assessment Outcome: Ongoing (Interventions Implemented as Appropriate) 02/04/171800 Discharge Needs Assessment Concerns To Be Addressed no discharge needs identified Readmission Within The Last 30 Days no previous admission in last 30 days Provider Choice List(s) Given no Equipment Needed After Discharge none Activity/Self Care Review of Systems Equipment Currently Used at Home none Living Environment Transportation Available family or friend will provide Goal: Interdisciplinary Rounds/Family Conf Outcome: Ongoing (Interventions Implemented as Appropriate) 02/04/17415 Interdisciplinary Rounds/Family Conf Participants nursing;patient;physician Problem: Skin Integrity Impairment, Risk/Actual (Adult) Goal: Identify Related Risk Factors and Signs and Symptoms Related risk factors and signs and symptoms are identified upon initiation of Human Response Clinical Practice Guideline (CPG) Outcome: Ongoing (Interventions Implemented as Appropriate) 02/04/17415 Skin Integrity Impairment, Risk/Actual Skin Integrity Impairment, Risk/Actual: Related Risk Factors age extremes;surgery/procedure Goal: Skin Integrity/Wound Healing Patient will demonstrate the desired outcomes by discharge/transition of care. Outcome: Ongoing (Interventions Implemented as Appropriate) 02/04/171800 Skin Integrity Impairment, Risk/Actual (Adult) Skin Integrity/Wound Healing making progress toward outcome * Initial Assessments - Shital Schmidt RN - 02/04/2017 10:52 AM EDT Office of Care Management Initial Assessment Shital Schmidt RN reviewed record and discussed patient with Care Team. Source of Information: patient Introduced self/reviewed role; services accepted. Reason for Hospitalization: NSTEMI Past Medical History: Diagnosis Date ??? AAA (abdominal aortic aneurysm) 04/12/2011 ??? HTN (hypertension) 04/12/2011 ??? NIDDM (non-insulin dependent diabetes mellitus) 04/12/2011 ??? S/P hernia repair 04/12/2011 Past Surgical History: Procedure Laterality Date ??? PRG PLACEMENT EXTENSION PRGSTHESIS FOR ENDOVASC REPAIR AAA 04/12/2011 @PLACE EXT EVG INTRARENAL AORTIC\ILIAC ARTERY ANEURYSM, S&I performed by ACACIA BRYANT at [facility] OR ??? PRO AAA REPAIR, 1ST VESSEL, EXTENSION PROSTH 04/12/2011 @EVG-PLACEMENT, CUFF OR EXT. AORTIC OR ILIAC ANEURYSM REPAIR, GORE performed by ACACIA BRYANT at [facility] OR ??? PRO AAA REPAIR, MODULR BIFUR PROSTH, 2-DOCK 04/12/2011 @EVG, AAA, W\ MODULAR BIFURCATED PROS. W\ 2 DOCKING LIMBS performed by ACACIA BRYANT at [facility] OR ??? PRO AAA REPR, EXPOSE FEMORAL ART, GROIN INCIS 04/12/2011 @EXPOSURE, OPEN FEM. ARTERY FOR ENDOVASCULAR PROSTHESIS, GROIN-FABIANA performed by ACACIA BRYANT at [facility] OR ? ? 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 Smoking status: Current Some Day Smoker Types: Pipe ??? Smokeless tobacco: Not on file Comment: pipe smoker, about 5 ounces a month ??? Alcohol use No Other Pertinent/Service Specific Information: none Health/Prescription Coverage: Primary Insurance: MEDICARE AB Secondary Insurance: AARP Prescription Coverage: yes, no issues per patient Preferred Pharmacy: [facility] Other: [facility] mail order pharmacy Primary Care Provider: Arely Moise MD [phone] Patient/Caregiver Goals of Treatment: per medical team recommendations at discharge Potential Needs for Transition of Care: Rehab/SNF: no Home Health: no DME: no Dialysis: no Community Resources: unknown Transportation: ride home with friend Other: none Anticipated Barriers to Discharge/Special Considerations: none anticipated at this time Plan: discharge to home when medically ready, no home services identified at this time. A member of the Care Management team will continue to monitor progress, follow for continuity of care and assist with transition of care planning. Shital Schmidt RN Pager: [phone] * Consult Note - Riya Kellogg RN - 02/04/2017 9:35 AM EDT Cardiac Rehabilitation Inpatient Evaluation Primary Cardiac Diagnosis: NSTEMI, PCI Cardiac Risk Factors: Smoking: patient denies Overweight: yes Hyperlipidemia: yes Sedentary: patient walks most days HTN: yes Family history: no DM: yes Stress: patient denies Patient Education: Reviewed cardiac cath findings, implications of coronary artery disease, managing angina and risk factor modification. Heart diagram reviewed. Reviewed managing angina /use of sl nitroglycerin. Mediterranean diet guidelines briefly reviewed. Given parameters for home exercise. 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 He loves his job and looks forward to getting back to it as soon as possible. Phase II Referral: Participation in the outpatient cardiac rehabilitation program at [facility] was discussed. Patient agrees to a referral to this program. The referral will be sent at discharge and the patient should be contacted by the Program within 1- 2 weeks from discharge. Activity Summary: By discharge, patient will be able to perform self care, walk 5-7 minutes and go up and down stairs without signs or symptoms of ischemia. Activity Baseline Response Symptoms/Comments ~7 walk HR 77 bpm 97 bpm no sx. Well tolerated. 13 stairs BP 128/73 131/95 O2 Sat 97% RA 96% RA ECG SR SR * Plan of Care - Lexi Mancuso RN - 02/04/2017 4:34 AM EDT Problem: Cardiac Cath/Percutaneous Coronary Intervention (Adult) Goal: Signs and Symptoms of Listed Potential Problems Will be Absent, Minimized or Managed (CardiacCath/Percutaneous Coronary Intervention) Signs and symptoms of listed potential problems will be absent, minimized or managed by discharge/transition of care (reference Cardiac Cath/Percutaneous Coronary Intervention (Adult) CPG). 02/04/17 0416 Cardiac Cath/Percutaneous Coronary Intervention Problems Assessed (Cardiac Catheterization) all Problems Present (Cardiac Catheterization) none Problem: Patient Care Overview Goal: Plan of Care Review 02/03/171999 Coping/Psychosocial Plan Of Care Reviewed With patient OUTCOME EVALUATION NOTE: OUTCOME SUMMARY: See flowsheet for VS. Pt denies pain or SOB. Pt's cath site is CDI, ecchymotic but soft. Pt complained of pain at beginning shift. MD Galicia notified. EKG obtained. Pt did not respond to nitro or acetaminophen. Pt was given morphine with mostly pain relief. Pt slept majority of shift. Bed alarm on.Call montanez within reach. Will continue to monitor PLAN MOVING FORWARD: Possible dc INDIVIDUALIZED FALL PREVENTION INTERVENTIONS: Patient-specific fall risk factors per assessment: [current deficits]: Tele, pain medication, IV Assistance [level of assistance required for transfers and ambulation]: SBA Supervision [direct monitoring required during toileting and ADLs]: No, can summon help as needed Surveillance [continuous indirect monitoring]: Yes, tele and pulse ox Patient-specific fall prevention interventions for sensory deficits provided, if applicable: [X] N/A CPG GOAL OUTCOME EVALUATION: Ongoing assessment Goal: Fall Prevention-Safe Patient Handling 02/03/17199902/04/17 0400 Vann Fall Risk History of Falling 0 -- Secondary Diagnosis 15 -- Ambulatory Aids 0 -- Intravenous Therapy/Heparin/Saline Lock 20 -- Gait/Transferring 0 -- Mental Status 0 -- Score 35 -- OTHER Vann Fall Risk Med -- Restraint Interventions Safety Promotion/Fall Prevention -- safety round/check completed;nonskid shoes/slippers when out ofbed;muscle strengthening facilitated;fall prevention program maintained Goal: Infection Control 02/03/171999 Safety Interventions Isolation Precautions standard precautions maintained Infection Prevention rest/sleep promoted;personal protective equipment utilized;equipment surfaces disinfected;environmental surveillance performed;single patient room provided Coping Strategies Supportive Measures active listening utilized Goal: Interdisciplinary Rounds/Family Conf 02/04/17415 Interdisciplinary Rounds/Family Conf Participants nursing;patient;physician Problem: Skin Integrity Impairment, Risk/Actual (Adult) Goal: Identify Related Risk Factors and Signs and Symptoms Related risk factors and signs and symptoms are identified upon initiation of Human Response Clinical Practice Guideline (CPG) 02/04/17415 Skin Integrity Impairment, Risk/Actual Skin Integrity Impairment, Risk/Actual: Related Risk Factors age extremes;surgery/procedure documented in this encounter Plan of Treatment Upcoming Encounters Date Type Department Care Team (Latest Contact Info) Description 01/02/2024 1:30 PM EDT Laboratory Appointment Lab [address] [place] [address] 01/02/2024 3:00 PM EDT Office Visit [place]ph[place] [address] Adam Costa MD [facility] [place] [address] Scheduled Referrals Name Type Priority Associated Diagnoses Orde r Schedule Referral to Cardiac Rehab Outpatient Referral Routine Non-ST elevation myocardial infarction (NSTEMI) Ordered: 02/05/2017 documented as of this encounter Procedures Procedure Name Priority Date/Time Associated Diagnosis Comments 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/06/2017 12:00 AM EDT POCT GLUCOSE Routine 02/05/2017 7:32 AM EDT EKG 12-LEAD Routine 02/05/2017 7:26 AM EDT Non-ST elevation myocardial infarction (NSTEMI) BMP W/FASTING GLUCOSE Routine 02/05/2017 3:43 AM EDT HEMOGRAM Routine 02/05/2017 3:43 AM EDT DIFFERENTIAL, AUTOMATED Routine 02/06/20 17 3:43 AM EDT CBC (WITH DIFF) Routine 02/05/2017 3:43 AM EDT MAGNESIUM Routine 02/05/2017 3:43 AM EDT POCT GLUCOSE Routine 02/04/2017 8:10 PM EDT POCT GLUCOSE Routine 02/04/2017 4:56 PM EDT POCT GLUCOSE Routine 02/04/2017 11:40 AM EDT POCT GLUCOSE Routine 02/04/2017 7:53 AM EDT EKG 12-LEAD Routine 02/04/2017 7:17 AM EDT Non-ST elevation myocardial infarction (NSTEMI) BMP W/FASTING GLUCOSE Routine 02/04/2017 3:33 AM EDT HEMOGRAM Routine 02/04/2017 3:33 AM EDT DIFFERENTIAL, AUTOMATED Routine 02/05/20 17 3:33 AM EDT CARDIAC ENZYMES ([facility]) Routine 02/04/2017 3:33 AM EDT CBC (WITH DIFF) Routine 02/04/2017 3:33 AM EDT TRIGLYCERIDE Routine 02/04/2017 3:33 AM EDT MAGNESIUM Routine 02/04/2017 3:33 AM EDT LDL CHOLESTEROL, DIRECT Routine 02/05/20 17 3:33 AM EDT HDL/CHOL PROFILE Routine 02/04/2017 3:33 AM EDT HEMOGLOBIN A1C Routine 02/04/2017 3:33 AM EDT HEPATIC FUNCTION PANEL Routine 7 3:33 AM EDT EKG 12-LEAD STAT 02/03/2017 9:16 PM EDT Non-ST elevation myocardial infarction (NSTEMI) CARDIAC ENZYMES ([facility]) STAT 02/03/2017 9:00 PM EDT POCT GLUCOSE Routine 02/03/2017 8:29 PM EDT POCT GLUCOSE Routine 02/03/2017 4:54 PM EDT EKG 12-LEAD Routine 02/03/2017 4:43 PM EDT Non-ST elevation myocardial infarction (NSTEMI) CARDIAC CATHETERIZATION Routine 02/04/20 17 4:26 PM EDT CARDIAC ENZYMES ([facility]) Routine 02/03/2017 3:00 PM EDT TSH Routine 02/03/2017 3:00 PM EDT XR CHEST PA AND LATERAL Routine 02/04/20 17 2:35 PM EDT ECHO COMPLETE W CONTRAST Routine 02/03/2017 1:08 PM EDT Non-ST elevation myocardial infarction (NSTEMI) POCT GLUCOSE Routine 02/03/2017 11:50 AM EDT APTT STAT 02/03/2017 11:50 AM EDT POCT GLUCOSE Routine 02/03/2017 10:13 AM EDT HEMOGRAM Routine 02/03/2017 9:35 AM EDT DIFFERENTIAL, AUTOMATED Routine 02/04/20 17 9:35 AM EDT CARDIAC ENZYMES ([facility]) STAT 02/03/2017 9:35 AM EDT APTT STAT 02/03/2017 9:35 AM EDT PROTHROMBIN TIME STAT 02/03/2017 9:35 AM EDT CBC (WITH DIFF) Routine 02/03/2017 9:35 AM EDT PRO-BRAIN NATRIURETIC PEPTIDE STAT 02/03/2017 9:35 AM EDT BASIC METABOLIC PANEL STAT 02/03/2017 9:35 AM EDT EKG 12-LEAD STAT 02/03/2017 9:23 AM EDT Non-ST elevation myocardial infarction (NSTEMI) documented in this encounter Results * 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 Scanning Provider MEDIA MGR SCAN EXT O RDR/RSLT * POCT Glucose (02/05/2017 7:32 AM EDT) [facility] Glucose, POC 160 65 - 199 mg/dL [facility] Comment: Supplemental ranges: <140 mg/dL before meals <180 mg/dL all other times of the day Blood specimen (specimen) 02/05/2017 7:32 AM EDT 02/05/2017 7:32 AM EDT Bayron Oliva MD POINT OF CARE TEST O RDERABLES [facility] [place] [address] * EKG 12 Lead (02/05/2017 7:26 AM EDT) Ventricular rate 54 BPM MUSE SYSTEM Atrial Rate 54 BPM MUSE SYSTEM P-R Interval 214 ms MUSE SYSTEM QRS Duration 96 ms MUSE SYSTEM Q-T Interval 486 ms MUSE SYSTEM QTC Calculated (Bezet) 460 ms MUSE SYSTEM Calculated P [place] 14 degrees MUSE SYSTEM Calculated R [place] 112 degrees MUSE SYSTEM Calculated T [place] 143 degrees MUSE SYSTEM INTERPRETATION Sinus bradycardia with sinus arrhythmia with 1st degree A-V block Right axis deviation Pulmonary disease pattern ST & Marked T wave abnormality consider anterolateral ischemia Prolonged QT Abnormal ECG When compared with ECG of 04-FEB-2017 07:17, No significant change was found Confirmed by MD MORA ARMIN ([id number]) on 02/05/2017 1:39:48 PM MUSE SYSTEM 02/05/2017 7:26 AM EDT 02/05/2017 1:39 PM EDT Shoshana Roach King RADHA ECG ORDERABLES MUSE SYSTEM * (ABNORMAL) Differential, Automated (02/05/2017 3:43 AM EDT) Neutrophil % 63.2 % [facility] Neutrophil Absolute 7.21(H) 1.70 - 6.10 x10(3)/mc L [facility] Lymph % 20.7 % [facility] Lymphocytes Abs 2.4 0.9 - 3.2 x10(3)/mc L [facility] Monocyte % 11.2 % [facility] Monocyte Abs 1.3(H) 0.3 - 0.9 x10(3)/mc L [facility] Eos % 4.1 % [facility] Eosinophils Abs 0.5(H) 0.0 - 0.4 x10(3)/mc L [facility] Basophil % 0.5 % [facility] Baso Absolute 0.1 0.0 - 0.1 x10(3)/mc L [facility] Immature Gran % 0.30 % [facility] Comment: Immature granulocytes(IG's)percentage and absolute count will include metamyelocytes, myelocytes, and promyelocytes. Blood smears from CBCs yielding IG's will be scanned manually for concordance. If this scan disagrees with the automated IG or if promyelocytes are noted, a manual differential will be performed. Immature Gran Absolute 0.03 0.00 - 0.04 x10(3)/mc L [facility] Blood specimen (specimen) 02/05/2017 3:43 AM EDT 02/05/2017 3:52 AM EDT Narrative Resulting Agency Comment Spec In Lab Shoshnaa Moyer RADHA HEMATOLOGY ORDERABLE S [facility] [place] [address] * (ABNORMAL) Hemogram (02/05/2017 3:43 AM EDT) White Blood Cell 11.4(H) 4.0 - 9.5 x10(3)/[facility] Red Blood Cell 4.48(L) 4.58 - 5.54 x10(6)/[facility] Hemoglobin 14.0 13.7 - 16.5 gm/dL [facility] Hematocrit 41.1 40.5 - 48.5 % [facility] Mean Cell Volume 91.7 82.9 - 93.1 fL [facility] Mean Cell Hemoglobin 31.3 27.5 - 32.1 pg [facility] Mean Cell Hemoglobin Concentration 34.1 32.0 - 35.7 gm/dL [facility] Platelet 168 145 - 357 x10(3)/[facility] RDW Standard Deviation 39.9 36.0 - 45.0 [facility] RDW coefficient of variation 11.8 11.4 - 13.8 % [facility] Mean Platelet Volume 10.2 7.6 - 12.9 [facility] NRBC% auto 0.0 % [facility] NRBC Absolute 0.000 0.000 - 0.000 x10(3)/[facility] Blood specimen (specimen) 02/05/2017 3:43 AM EDT 02/05/2017 3:52 AM EDT Narrative Resulting Agency Comment Spec In Lab Shoshana Moyer RADHA HEMATOLOGY ORDERABLE S [facility] [place] [address] * (ABNORMAL) BMP w/fasting Glucose (02/05/2017 3:43 AM EDT) Glucose Fasting 149(H) 65 - 99 mg/dL [facility] of Diabetes Mellitus, Position Statement from the [place] [employer]. ??Diabetes Care, Volume 33, Supplement 1, May 2009 Blood Urea Nitrogen 19 10 - 20 mg/dL [facility] Creatinine 1.46 0.80 - 1.50 mg/dL [facility] Comment: Please note that the pediatric reference intervals supplied above were not validated at [facility]. Results from pediatric patients should be interpreted in conjunction to the patient's age, height and muscle mass. Sodium 140 135 - 145 mmol/L [facility] Potassium 4.3 3.5 - 5.0 mmol/L [facility] Est Glomerular Filtration Rate 46(L) >=60 [facility] Comment: This estimated GFR (eGFR) value was calculated using the MDRD equation which has been validated on patients between the ages of 18 and 70. The MDRD should not be used to assess kidney function in patients < 18 years of age or in patients with extremes of body mass, or in patients with acute kidney failure. This value should be multiplied by 1.2 for patients. For further information please copy and paste the following links into your internet browser. [email or web address] Blood specimen (specimen) 02/05/2017 3:43 AM EDT 02/05/2017 3:52 AM EDT Narrative Resulting Agency Comment Spec In Lab Shoshana Moyer APRN CHEMISTRY ORDERABLES Performing Organization Address [facility] Co de Phone Number [facility] [place] [address] * Magnesium (02/05/2017 3:43 AM EDT) Magnesium 0.77 0.69 - 1.07 mmol/L [facility] Blood specimen (specimen) 02/05/2017 3:43 AM EDT 02/05/2017 3:52 AM EDT Narrative Resulting Agency Comment Spec In Lab Shoshana Doc Moyer ECOLOGICAL TECHNICAL OFFICER CHEMISTRY ORDERABLES Performing Organization Address [facility] Co de Phone Number [facility] [place] [address] * POCT Glucose (02/04/2017 8:10 PM EDT) Glucose, POC 189 65 - 199 mg/dL [facility] Comment: Supplemental ranges: <140 mg/dL before meals <180 mg/dL all other times of the day Blood specimen (specimen) 02/04/2017 8:10 PM EDT 02/04/2017 8:10 PM EDT Bayron Oliva MD POINT OF CARE TEST O RDERABLES Performing Organization Address City/[facility]/ZIP Co de Phone Number [facility] [place] [address] * POCT Glucose (02/04/2017 4:56 PM EDT) Glucose, POC 114 65 - 199 mg/dL [facility] Comment: Supplemental ranges: <140 mg/dL before meals <180 mg/dL all other times of the day Blood specimen (specimen) 02/04/2017 4:56 PM EDT 02/04/2017 4:56 PM EDT Bayron Oliva MD POINT OF CARE TEST O KORTNEYERAJAZZY Performing Organization Address [facility] Co de Phone Number [facility] [place] [address] * POCT Glucose (02/04/2017 11:40 AM EDT) Glucose, POC 157 65 - 199 mg/dL [facility] Comment: Supplemental ranges: <140 mg/dL before meals <180 mg/dL all other times of the day Blood specimen (specimen) 02/04/2017 11:40 AM EDT 02/04/2017 11:40 AM EDT Bayron Oliva MD POINT OF CARE TEST O RDERAJAZZY Performing Organization Address City/[facility] Co de Phone Number [facility] [place] [address] * POCT Glucose (02/04/2017 7:53 AM EDT) Glucose, POC 178 65 - 199 mg/dL [facility] Comment: Supplemental ranges: <140 mg/dL before meals <180 mg/dL all other times of the day Blood specimen (specimen) 02/04/2017 7:53 AM EDT 02/04/2017 7:53 AM EDT Bayron Oliva MD POINT OF CARE TEST O RDERABLES [facility] [place] [address] * EKG 12 Lead (02/04/2017 7:17 AM EDT) Ventricular rate 65 BPM MUSE SYSTEM Atrial Rate 65 BPM MUSE SYSTEM P-R Interval 248 ms MUSE SYSTEM QRS Duration 92 ms MUSE SYSTEM Q-T Interval 484 ms MUSE SYSTEM QTC Calculated (Bezet) 503 ms MUSE SYSTEM Calculated P [place] 29 degrees MUSE SYSTEM Calculated R [place] 99 degrees MUSE SYSTEM Calculated T [place] 140 degrees MUSE SYSTEM INTERPRETATION Sinus rhythm with 1st degree A-V block Rightward axis Low voltage QRS Limb lead Inferior infarct (cited on or before 03-FEB-2017) T wave abnormality, consider anterolateral ischemia Prolonged QT Abnormal ECG When compared with ECG of 03-FEB-2017 21:16, (unconfirmed) T-wave inversion in in anterolateral leads is more prominent I personally reviewed the tracing and edited the fellows interpretation Confirmed by fellow MD Katherine, Truong ([id number]) on 02/04/2017 9:02:44 AM Confirmed by MD RAUL, JOAN ([id number]) on 02/04/2017 10:47:37 AM MUSE SYSTEM 02/04/2017 7:17 AM EDT 02/04/2017 10:47 AM EDT Shoshana Moyer APRN ECG ORDERABLES MUSE SYSTEM * (ABNORMAL) Cardiac Enzymes (02/04/2017 3:33 AM EDT) Troponin-T 0.95(H) 0.00 - 0.00 ng/mL [facility] Comment: The 99th percentile for Troponin T is less than 0.01 ng/mL, any detectable cTnT concentration using this assay should be considered elevated. According to the third universal definition of myocardial infarction the following criteria with a clinical presentation consistent with acute myocardial ischemia meets the diagnosis for a myocardial infarction ([place]). Detection of a rise and/or fall of cTnT, with at least one value greater than the 99th percentile (> or = 0.01) and with at least one of the following ?? Symptoms of ischemia ?? New or presumed new significant GM-[id number] wave (ST-T) changes or new left bundle [...] additional sample may be indicated. Reference: Third [place] Definition of Myocardial Infarction. Journal of the [place] [employer] 2012;60:1581-98 Creatine Kinase 421(H) 0 - 200 unit/L [facility] Blood specimen (specimen) Venous Draw / Unknown 02/04/2017 3:33 AM EDT 02/04/2017 3:50 AM EDT Narrative Resulting Agency Comment Spec In Lab Shoshana Moyer APRN CHEMISTRY ORDERABLES Performing Organization Address City/State/[facility] Co de Phone Number [facility] [place] [address] * (ABNORMAL) Differential, Automated (02/04/2017 3:33 AM EDT) Neutrophil % 70.9 % [facility] Neutrophil Absolute 10.32(H) 1.70 - 6.10 x10(3)/mc L [facility] Lymph % 17.5 % [facility] Lymphocytes Abs 2.6 0.9 - 3.2 x10(3)/mc L [facility] Monocyte % 8.8 % [facility] Monocyte Abs 1.3(H) 0.3 - 0.9 x10(3)/mc L [facility] Eos % 2.0 % [facility] Eosinophils Abs 0.3 0.0 - 0.4 x10(3)/mc L [facility] Basophil % 0.4 % [facility] Baso Absolute 0.1 0.0 - 0.1 x10(3)/[facility] Immature Gran % 0.40 % [facility] Comment: Immature granulocytes(IG's)percentage and absolute count will include metamyelocytes, myelocytes, and promyelocytes. Blood smears from CBCs yielding IG's will be scanned manually for concordance. If this scan disagrees with the automated IG or if promyelocytes are noted, a manual differential will be performed. Immature Gran Absolute 0.06(H) 0.00 - 0.04 x10(3)/[facility] Blood specimen (specimen) 02/04/2017 3:33 AM EDT 02/04/2017 3:50 AM EDT Narrative Resulting Agency Comment Spec In Lab Shoshana Moyer APRN HEMATOLOGY ORDERABLE S [facility] [place] [address] * (ABNORMAL) Hemogram (02/04/2017 3:33 AM EDT) White Blood Cell 14.6(H) 4.0 - 9.5 x10(3)/[facility] Red Blood Cell 4.65 4.58 - 5.54 x10(6)/[facility] Hemoglobin 14.6 13.7 - 16.5 gm/dL [facility] Hematocrit 41.8 40.5 - 48.5 % [facility] Mean Cell Volume 89.9 82.9 - 93.1 fL [facility] Mean Cell Hemoglobin 31.4 27.5 - 32.1 pg [facility] Mean Cell Hemoglobin Concentration 34.9 32.0 - 35.7 gm/dL [facility] Platelet 192 145 - 357 x10(3)/ L [facility] RDW Standard Deviation 38.6 36.0 - 45.0 fL [facility] RDW coefficient of variation 11.8 11.4 - 13.8 % [facility] Mean Platelet Volume 10.1 7.6 - 12.9 fL [facility] NRBC% auto 0.0 % [facility] NRBC Absolute 0.000 0.000 - 0.000 x10(3)/mc L [facility] Blood specimen (specimen) 02/04/2017 3:33 AM EDT 02/04/2017 3:50 AM EDT Narrative Resulting Agency Comment Spec In Lab Shoshana J King RADHA HEMATOLOGY ORDERABLE S [facility] [place] [address] * (ABNORMAL) BMP w/fasting Glucose (02/04/2017 3:33 AM EDT) Glucose Fasting 138(H) 65 - 99 mg/dL [facility] of Diabetes Mellitus, Position Statement from the [place] [employer]. ??Diabetes Care, Volume 33, Supplement 1, May 2009 Blood Urea Nitrogen 15 10 - 20 mg/dL [facility] Creatinine 1.34 0.80 - 1.50 mg/dL [facility] Comment: Please note that the pediatric reference intervals supplied above were not validated at [facility]. Results from pediatric patients should be interpreted in conjunction to the patient's age, height and muscle mass. Sodium 139 135 - 145 mmol/L [facility] Anion Gap 14 5 - 15 mmol/L [facility] Calcium 8.7 8.5 - 10.5 mg/dL [facility] Est Glomerular Filtration Rate 51(L) >=60 [facility] Comment: This estimated GFR (eGFR) value was calculated using the MDRD equation which has been validated on patients between the ages of 18 and 70. The MDRD should not be used to assess kidney function in patients < 18 years of age or in patients with extremes of body mass, or in patients with acute kidney failure. This value should be multiplied by 1.2 for patients. For further information please copy and paste the following links into your internet browser. [email or web address] Blood specimen (specimen) 02/04/2017 3:33 AM EDT 02/04/2017 3:50 AM EDT Narrative Resulting Agency Comment Spec In Lab Shoshana Moyer APRN CHEMISTRY ORDERABLES Performing Organization Address [facility] Co de Phone Number [facility] [place] [address] * Magnesium (02/04/2017 3:33 AM EDT) Magnesium 0.77 0.69 - 1.07 mmol/L [facility] Blood specimen (specimen) 02/04/2017 3:33 AM EDT 02/04/2017 3:50 AM EDT Narrative Resulting Agency Comment Spec In Lab Shoshana Moyer APRN CHEMISTRY ORDERABLES Performing Organization Address [facility] Co de Phone Number [facility] [place] [address] * (ABNORMAL) Hepatic Function Panel (02/04/2017 3:33 AM EDT) [facility] Protein, Total 6.1 6.1 - 8.0 gm/dL [facility] Albumin 3.7 3.2 - 5.2 gm/dL [facility] Aspartate Aminotransferase 57(H) 0 - 39 unit/L [facility] Alanine Aminotransferase 34 0 - 55 unit/L [facility] Alkaline Phosphatase 71 40 - 120 unit/L [facility] Bilirubin, Total 0.7 0.2 - 1.3 mg/dL [facility] Bilirubin, Direct 0.1 0.0 - 0.3 mg/dL [facility] Blood specimen (specimen) 02/04/2017 3:33 AM EDT 02/04/2017 3:50 AM EDT Narrative Resulting Agency Comment Spec In Lab Shoshana Roach João ECOLOGICAL TECHNICAL OFFICER CHEMISTRY ORDERABLES Performing Organization Address City/[facility]/ZIP Co de Phone Number [facility] [place] [address] * Triglyceride (02/04/2017 3:33 AM EDT) [facility] Triglyceride 171 <=199 mg/dL [facility] Blood specimen (specimen) 02/04/2017 3:33 AM EDT 02/04/2017 3:50 AM EDT Narrative Resulting Agency Comment Spec In Lab Shoshana Roach [employer] ECOLOGICAL TECHNICAL OFFICER CHEMISTRY ORDERABLES [facility] [place] [address] * (ABNORMAL) HDL/Cholesterol Profile (02/04/2017 3:33 AM EDT) [facility] Cholesterol, Total 106 <=239 mg/dL [facility] HDL Cholesterol 37(L) >=40 mg/dL [facility] Cholesterol/HDL Ratio 2.9 ratio [facility] Chol/HDL Interpretation See Note [facility] Comment: Lipid management should be guided by a patient? s ASCVD risk, goals and preferences. ACC/AHA Guidelines recommend high intensity statin if clinical ASCVD or LDL greater than or equal to 190 mg/dL. [email or web address] Measure LDL if Total Cholesterol minus HDL Cholesterol is greater than 220 mg/dL. Adults aged 40-75 with LDL 70-189 mg/dL should have their 10 year ASCVD risk estimated with the ACC/AHA ASCVD risk crating and moving estimator http://tools.acc.org/GAMJL-Tmxm-Qrfgpqyer/ Statin should be discussed if risk greater than or equal to 7.5% in non-diabetics. With diabetes, moderate intensity statin is recommended if risk less than 7.5%, high intensity if risk greater than or equal to 7.5%. Annual lipid monitoring on statins is not necessary. Lifestyle modification is a critical component of ASCVD risk reduction. Blood specimen (specimen) 02/04/2017 3:33 AM EDT 02/04/2017 3:50 AM EDT Narrative Resulting Agency Comment Spec In Lab Shoshana Moyer APRN CHEMISTRY ORDERABLES Performing Organization Address [facility] Co de Phone Number [facility] [place] [address] * LDL Cholesterol, Direct (02/04/2017 3:33 AM EDT) LDL Cholesterol, Direct 47 <=190 mg/dL [facility] Blood specimen (specimen) 02/04/2017 3:33 AM EDT 02/04/2017 3:50 AM EDT Narrative Resulting Agency Comment Spec In Lab Shoshana Moyer APRN CHEMISTRY ORDERABLES Performing Organization Address [facility] Co de Phone Number [facility] [place] [address] * (ABNORMAL) Hemoglobin A1c (02/04/2017 3:33 AM EDT) Hemoglobin A1c 6.2(H) 4.3 - 5.6 % [facility] Mellitus, Diabetes Care 2013; 36: Suppl. 1, S67-58 Estimated Average Glucose See note mg/dL [facility] [...] into estimated average glucose values. ??Diabetes Care 2008:31(8):9407-9707. Blood specimen (specimen) 02/04/2017 3:33 AM EDT 02/04/2017 3:50 AM EDT Narrative Resulting Agency Comment Spec In Lab Shoshana Moyer APRN CHEMISTRY ORDERABLES [facility] [place] [address] * EKG 12 Lead (02/03/2017 9:16 PM EDT) Ventricular rate 77 BPM MUSE SYSTEM Atrial Rate 77 BPM MUSE SYSTEM P-R Interval 222 ms MUSE SYSTEM QRS Duration 90 ms MUSE SYSTEM Q-T Interval 458 ms MUSE SYSTEM QTC Calculated (Bezet) 518 ms MUSE SYSTEM Calculated P Alm[place] 29 degrees MUSE SYSTEM Calculated R [place] 98 degrees MUSE SYSTEM Calculated T Alm[place] 118 degrees MUSE SYSTEM INTERPRETATION Sinus rhythm with 1st degree A-V block Rightward axis Low voltage QRS Inferior infarct (cited on or before 03-FEB-2017) Cannot rule out Anteroseptal infarct , age undetermined T wave abnormality, consider lateral ischemia Prolonged QT Abnormal ECG When compared with ECG of 03-FEB-2017 16:43, (unconfirmed) Minimal criteria for Anteroseptal infarct are now Present ST no longer depressed in Inferior leads T wave inversion no longer evident in Inferior leads Inverted T waves have replaced nonspecific T wave abnormality in Lateral leads Confirmed by MD LESLY, ARELY ([id number]) on 02/04/2017 9:17:42 PM MUSE SYSTEM 02/03/2017 9:16 PM EDT 02/04/2017 9:17 PM EDT Bayron Oliva MD ECG ORDERABLES Performing Organization Address [facility] Co de Phone Number MUSE SYSTEM * (ABNORMAL) Cardiac Enzymes (02/03/2017 9:00 PM EDT) [facility] Troponin-T 0.71(H) 0.00 - 0.00 ng/mL [facility] Comment: The 99th percentile for Troponin T is less than 0.01 ng/mL, any detectable cTnT concentration using this assay should be considered elevated. According to the third universal definition of myocardial infarction the following criteria with a clinical presentation consistent with acute myocardial ischemia meets the diagnosis for a myocardial infarction (MN). Detection of a rise and/or fall of cTnT, with at least one value greater than the 99th percentile (> or = 0.01) and with at least one of the following ?? Symptoms of ischemia ?? New or presumed new significant FV-emhicvh-X wave (ST-T) changes or new left bundle [...] additional sample may be indicated. Reference: Third [place] Definition of Myocardial Infarction. Journal of the [place] [employer] 2012;60:1581-98 Creatine Kinase 329(H) 0 - 200 unit/L [facility] Blood specimen (specimen) 02/03/2017 9:00 PM EDT 02/03/2017 9:05 PM EDT Narrative Resulting Agency Comment Spec In Lab Shoshana Moyer APRN CHEMISTRY ORDERABLES Performing Organization Address [facility]/ZIP Co de Phone Number [facility] [place] [address] * POCT Glucose (02/03/2017 8:29 PM EDT) Glucose, POC 197 65 - 199 mg/dL [facility] Comment: Supplemental ranges: <140 mg/dL before meals <180 mg/dL all other times of the day Blood specimen (specimen) 02/03/2017 8:29 PM EDT 02/03/2017 8:29 PM EDT Bayron Oliva MD POINT OF CARE TEST O RDERABLES [facility] [place] [address] * POCT Glucose (02/03/2017 4:54 PM EDT) Glucose, POC 144 65 - 199 mg/dL [facility] Comment: Supplemental ranges: <140 mg/dL before meals <180 mg/dL all other times of the day Blood specimen (specimen) 02/03/2017 4:54 PM EDT 02/03/2017 4:54 PM EDT Bayron Oliva MD POINT OF CARE TEST O RDERABLES Performing Organization Address [facility] Co de Phone Number [facility] [place] [address] * EKG 12 Lead (02/03/2017 4:43 PM EDT) Ventricular rate 81 BPM MUSE SYSTEM Atrial Rate 81 BPM MUSE SYSTEM P-R Interval 226 ms MUSE SYSTEM QRS Duration 96 ms MUSE SYSTEM Q-T Interval 420 ms MUSE SYSTEM QTC Calculated (Bezet) 487 ms MUSE SYSTEM Calculated P Alm[place] 30 degrees MUSE SYSTEM Calculated R Alm[place] -20 degrees MUSE SYSTEM Calculated T [place] -19 degrees MUSE SYSTEM INTERPRETATION Sinus rhythm with 1st degree A-V block Low voltage QRS Inferior infarct (cited on or before 03-FEB-2017 ) ST and ??T wave abnormality , consider anterior ischemia Abnormal ECG When compared with ECG of 03-FEB-2017 09:23, ST now elevated V2-3 Confirmed by MD LESLY, ARELY ([id number]) on 02/04/2017 9:17:15 PM MUSE SYSTEM 02/03/2017 4:43 PM EDT 02/04/2017 9:17 PM EDT Bayron Oliva MD ECG ORDERABLES Performing Organization Address [facility] de Phone Number MUSE SYSTEM * CARDIAC CATHETERIZATION (02/03/2017 4:26 PM EDT) Anatomical Region Laterality Modality Other Narrative 02/03/2017 4:43 PM EDT ?[facility] ? Cardiac Catheterization/Intervention Report ? Patient Name: Cesar Thompson. ? Procedure Date: 02/03/2017 ? A #: [id number] ? Primary Physician: Lydia Harden ? Case #: [id number] ? File Name: [id number] ? Catheterization Order Number: [id number] ? [facility] ? Final Report [place], [place] ? Patient Name: ? Gilbert D. Thompson ?ID#: ?[id number] ? : ?1935 ? Procedure Date: ? February 03, 2017 ?Case #: ? [id number] ? Room: ? 6 ? Case Physician: ? Lydia Harden M.D. ? Start: ?15:39 ?Fellow: ? Madhu Forman M.D. ? Admission: ??02/03/2017 ? Discharge: ??02/05/2017 ? Referring Physician: ??Arely Moise M.D. ? Procedures: ?* Coronary Angiography ?* Left Heart Catheterization ?* Coronary Angioplasty ?* Coronary Stent Insertion ? History ?Cesar Thompson is an 81 year old man. He has hypertension. The patient ?has a history of smoking and is still smoking. He has ?hypercholesterolemia managed with lipid therapy. The patient has diabetes ?managed with oral medication. He has unstable angina, positive troponin ?and a history of chest pain. The patient is status post an acute non-ST ?elevation myocardial infarction. He has an abdominal aortic aneurysm. The ?patient also has a history of an abnormal EKG and an abnormal ?echocardiogram. Prior to the initiation of this procedure, the patient ?was designated as ASA Class III. ? Patient Status at Catheterization: ?The patient presented with: non-STEMI (w/i 7 days). [place] ?Cardiovascular Society angina class was IV. This patient was on beta ?blockers prior to the procedure. No stress or imaging studies were ?performed prior to this procedure. The status of the diagnostic procedure ?was Urgent. ? Technique: ?A 6Fr sheath was inserted in the right radial artery utilizing the ?Seldinger technique. The left coronary artery was injected utilizing a ?6Fr EBU 3.5 catheter. A 5Fr JR 4 catheter was used to inject the right ?coronary artery. Left ventricular pressure was performed with a 5Fr JR 4 ?catheter. Coronary angioplasty and coronary stent insertion were ?performed and the equipment utilized will be described in the ?intervention summary section. 6,000 units of heparin were administered. A ?total of 200cc of Omnipaque were opened, 105cc of Omnipaque were ?administered and 95cc of Omnipaque were wasted. Radiation: Fluoro time ?was 10.9 minutes, dose area product was 102,163 mGYcm2 and air kerma was ?1,133 mGY. ?The patient received the following medications prior to and during the ?procedure: Aspirin (any), Clopidogrel and Unfractionated Heparin (any). ? Hemodynamics: ?Left Heart Pressures ? Resting: ? Syst Diast ? EDP ?a ?v ? m ?Ao 124 ?? 78 ?93 ? Post Contrast: ? Syst Diast ? EDP ?a ?v ? m ?Ao 120 ?? 75 ?LV 127 ? 9 ? Coronary Angiography: ?Dominance: Right ?Left Main ? There was mild diffuse (<=25% stenosis) disease of the entire vessel ? segment of the left main artery. ??The left main was moderate in ? size. ??Distal flow was normal. ?Left Anterior Descending ? There was a 95% hazy single discrete stenosis of the mid segment of ? the left anterior descending artery (LAD). ??The LAD was moderate in ? size. ??Distal flow was decreased (DEEPTHI Grade 2). ? There was a 50% single discrete stenosis of the ostial segment of ? the first diagonal branch (Diagonal 1) of the LAD. ??The Diagonal 1 ? was small. ?Left Circumflex ? There was mild diffuse (<=25% stenosis) disease of the entire vessel ? segment of the left circumflex artery (LCX). ??The LCX was moderate ? in size. ??Distal flow was normal. ? There was a 40% diffuse stenosis of the entire vessel segment of the ? first obtuse marginal branch (OM1) of the LCX. ??The OM1 was moderate ? in size. ??Distal flow was normal. ?Right Coronary Artery ? There was mild diffuse (<=25% stenosis) disease of the entire vessel ? segment of the right coronary artery (RCA). ??The RCA was moderate in ? size. ??Distal flow was normal. ? There was mild diffuse (<=25% stenosis) disease of the entire vessel ? segment of the right posterior descending branch (RPDA) of the RCA. ? The RPDA was moderate in size. ??Distal flow was normal. ? Indication for Intervention: ?Coronary intervention was indicated for primary therapy for an acute ?myocardial infarction. Left Ventricular Ejection fraction was not ?assessed. The priority for the procedure was Urgent. The NCDR indication ?for the procedure was PCI for high risk Non-STEMI or unstable angina. ? Intervention Summary: ?Left Anterior Descending Artery ? Mid 95% ? Stent insertion was performed on the 95% stenosis in the mid ? segment of the LAD. This was a de rob lesion. According to ? the ACC/AHA classification system, this lesion was a type C ? high risk lesion. Primary prevention of restenosis was the ? indication for stent insertion. This was the culprit lesion. ? Vessel flow pre intervention was DEEPTHI 2. The lesion involves a ? bifurcation with the D1. This bifurcation lesion was treated ? with an angioplasty only (no stent) technique. ? Stent insertion was accomplished through a 6 Fr. EBU 3.5 ? guide. ??The lesion was predilated with a 2.50mm EUPHORA 15 MM ? balloon with a maximum inflation pressure of 14 atmospheres. ? A premounted 3.50 x 23 mm Xience Alpine (MINNIE) was deployed ? with a maximum inflation pressure of 12 atmospheres. ? The final outcome was defined as successful. There was no ? residual stenosis following this intervention. The final DEEPTHI ? flow was 3. ?First Diagonal Branch of the LAD ? Ostial 50% ? Angioplasty was performed on the 50% stenosis in the ostial ? segment of the Diagonal 1. This was a de rob lesion. This ? lesion was designated a type B1 low risk lesion based on ? ACC/AHA classification system. Vessel flow pre intervention ? was DEEPTHI 1. ? Angioplasty was accomplished through a 6 Fr EBU 3.5 guide ? utilizing an EUPHORA 15 MM balloon with a maximum size of ? 2.50mm and a maximum inflation pressure of 6 atmospheres. ? The final outcome was defined as successful. There was no ? residual stenosis following this intervention. The final DEEPTHI ? flow was 2. ? Vascular Access: ?Vascular Access Management: ? Mechanical Compression of the right radial artery access site was ? performed. ? Dual Antiplatelet (DAPT) Recommendations: ?Drug eluting stent (MINNIE) inserted. ?P2Y12 Loading dose administered prior to arrival in the labor relations teacher. ?Recommend continuing clopidogrel 75 mg PO daily for 12 months. ??Recommend ?continuing aspirin 81 mg unless intolerant. ? Conclusions: ?* One vessel coronary artery disease (LAD) ?* Successful stent insertion of the mid LAD lesion ?* Successful angioplasty of the ostial D1 lesion ?* Recommend continuing clopidogrel 75 mg PO daily for 12 months (see DAPT ?Recommendations above for more information.) ? Complications/Events: ?The patient had no complications during these procedures. ? Comments: ?Pt refererred for diagnostic coronary angiography for chest pain, ECG and ?echo changes and postive biomarkers. ??Coronary angiography showed severe ?LAD disease. ??This was treated with a single MINNIE. Jailed D2 had ?diminished flow in D2 which required rescure with POBA. ??This resulted in ?improved flow. ??This will be managed medically. ??Recommend optimal ?medical therapy post AMI. ?The attending physician was present for the entire procedure. ?Dr. Lydia Harden M.D. was present during the moderate sedation intraservice ?time as documented by the sedation nurse. ??Case time = 00:42. ?Dr. Lydia Harden M.D. performed the coronary angiography, left heart ?catheterization, stent insertion-coronary and angioplasty-coronary. ? Lydia Harden M.D. ? Electronically Signed by: Lydia Harden M.D. ? Report Finalized: 02/03/2017 ??16:31 ? Report Last Ammended: 08/08/2017 ??10:23 ? Procedure Note Lydia Harden MD - 08/08/2017 [facility] Cardiac Catheterization/Intervention Report Patient Name: Cesar Thompson Procedure Date: 02/03/2017 A #: [id number] Primary Physician: Lydia Harden Case #: [id number] File Name: [id number] Catheterization Order Number: [id number] [facility] FinalReport [place], [place] Patient Name: Cesar Thompson ID#:[id number] :1935 Procedure Date: February 03, 2017 Case #: [id number] Room: 6 Case Physician: Lydia Harden M.D. Start: 15:39 Fellow: Madhu Forman M.D. Admission:02/03/2017 Discharge:02/05/2017 Referring Physician: Arely Moise M.D. Procedures: * Coronary Angiography * Left Heart Catheterization * Coronary Angioplasty * Coronary Stent Insertion History Cesar Thompson is an 81 year old man. He has hypertension. Thepatient has a history of smoking and is still smoking. He has hypercholesterolemia managed with lipid therapy. The patient hasdiabetes managed with oral medication. He has unstable angina, positivetroponin and a history of chest pain. The patient is status post an acutenon-ST elevation myocardial infarction. He has an abdominal aorticaneurysm. The patient also has a history of an abnormal EKG and an abnormal echocardiogram. Prior to the initiation of this procedure, thepatient was designated as ASA Class III. Patient Status at Catheterization: The patient presented with: non-STEMI (w/i 7 days). [place] [employer] Society angina class was IV. This patient was on beta blockers prior to the procedure. No stress or imaging studies were performed prior to this procedure. The status of the diagnosticprocedure was Urgent. Technique: A 6Fr sheath was inserted in the right radial artery utilizing the Seldinger technique. The left coronary artery was injected utilizinga 6Fr EBU 3.5 catheter. A 5Fr JR 4 catheter was used to inject theright coronary artery. Left ventricular pressure was performed with a 5FrJR 4 catheter. Coronary angioplasty and coronary stent insertion were performed and the equipment utilized will be described in the intervention summary section. 6,000 units of heparin wereadministered. A total of 200cc of Omnipaque were opened, 105cc of Omnipaque were administered and 95cc of Omnipaque were wasted. Radiation: Fluorotime was 10.9 minutes, dose area product was 102,163 mGYcm2 and air kermawas 1,133 mGY. The patient received the following medications prior to and duringthe procedure: Aspirin (any), Clopidogrel and Unfractionated Heparin(any). Hemodynamics: Left Heart Pressures Resting: Syst Diast EDP a v m Ao 124 78 93 Post Contrast: Syst Diast EDP a v m Ao 120 75 LV 127 9 Coronary Angiography: Dominance: Right Left Main There was mild diffuse (<=25% stenosis) disease of the entirevessel segment of the left main artery. The left main was moderate in size. Distal flow was normal. Left Anterior Descending There was a 95% hazy single discrete stenosis of the midsegment of the left anterior descending artery (LAD). The LAD wasmoderate in size. Distal flow was decreased (DEEPTHI Grade 2). There was a 50% single discrete stenosis of the ostial segmentof the first diagonal branch (Diagonal 1) of the LAD. TheDiagonal 1 was small. Left Circumflex There was mild diffuse (<=25% stenosis) disease of the entirevessel segment of the left circumflex artery (LCX). The LCX wasmoderate in size. Distal flow was normal. There was a 40% diffuse stenosis of the entire vessel segmentof the first obtuse marginal branch (OM1) of the LCX. The OM1 wasmoderate in size. Distal flow was normal. Right Coronary Artery There was mild diffuse (<=25% stenosis) disease of the entirevessel segment of the right coronary artery (RCA). The RCA wasmoderate in size. Distal flow was normal. There was mild diffuse (<=25% stenosis) disease of the entirevessel segment of the right posterior descending branch (RPDA) of theRCA. The RPDA was moderate in size. Distal flow was normal. Indication for Intervention: Coronary intervention was indicated for primary therapy for an acute myocardial infarction. Left Ventricular Ejection fraction was not assessed. The priority for the procedure was Urgent. The NCDRindication for the procedure was PCI for high risk Non-STEMI or unstableangina. Intervention Summary: Left Anterior Descending Artery Mid 95% Stent insertion was performed on the 95% stenosis in themid segment of the LAD. This was a de rob lesion. Accordingto the ACC/AHA classification system, this lesion was a typeC high risk lesion. Primary prevention of restenosis wasthe indication for stent insertion. This was the culpritlesion. Vessel flow pre intervention was DEEPTHI 2. The lesioninvolves a bifurcation with the D1. This bifurcation lesion wastreated with an angioplasty only (no stent) technique. Stent insertion was accomplished through a 6 Fr. EBU 3.5 guide. The lesion was predilated with a 2.50mm [id number] MM balloon with a maximum inflation pressure of 14atmospheres. A premounted 3.50 x 23 mm Xience Alpine (MINNIE) wasdeployed with a maximum inflation pressure of 12 atmospheres. The final outcome was defined as successful. There was no residual stenosis following this intervention. The finalTIMI flow was 3. First Diagonal Branch of the LAD Ostial 50% Angioplasty was performed on the 50% stenosis in theostial segment of the Diagonal 1. This was a de rob lesion.This lesion was designated a type B1 low risk lesion based on ACC/AHA classification system. Vessel flow preintervention was DEEPTHI 1. Angioplasty was accomplished through a 6 Fr EBU 3.5 guide utilizing an EUPHORA 15 MM balloon with a maximum size of 2.50mm and a maximum inflation pressure of 6 atmospheres. The final outcome was defined as successful. There was no residual stenosis following this intervention. The finalTIMI flow was 2. Vascular Access: Vascular Access Management: Mechanical Compression of the right radial artery access sitewas performed. Dual Antiplatelet (DAPT) Recommendations: Drug eluting stent (MINNIE) inserted. P2Y12 Loading dose administered prior to arrival in the labor relations teacher. Recommend continuing clopidogrel 75 mg PO daily for 12 months.Recommend continuing aspirin 81 mg unless intolerant. Conclusions: * One vessel coronary artery disease (LAD) * Successful stent insertion of the mid LAD lesion * Successful angioplasty of the ostial D1 lesion * Recommend continuing clopidogrel 75 mg PO daily for 12 months (seeDAPT Recommendations above for more information.) Complications/Events: The patient had no complications during these procedures. Comments: Pt refererred for diagnostic coronary angiography for chest pain,ECG and echo changes and postive biomarkers. Coronary angiography showedsevere LAD disease. This was treated with a single MINNIE. Jailed D2 had diminished flow in D2 which required rescure with POBA. Thisresulted in improved flow. This will be managed medically. Recommend optimal medical therapy post AMI. The attending physician was present for the entire procedure. Dr. Lydia Harden M.D. was present during the moderate sedationintraservice time as documented by the sedation nurse. Case time = 00:42. Dr. Lydia Harden M.D. performed the coronary angiography, left heart catheterization, stent insertion-coronary and angioplasty-coronary. Lydia Harden M.D. Electronically Signed by: Lydia Harden M.D. Report Finalized: 02/03/2017 16:31 Report Last Ammended: 08/08/2017 10:23 Inder Medley MD CARDIAC CATH ORDERAB LES * (ABNORMAL) Cardiac Enzymes (02/03/2017 3:00 PM EDT) Troponin-T 0.48(H) 0.00 - 0.00 ng/mL [facility] Comment: The 99th percentile for Troponin T is less than 0.01 ng/mL, any detectable cTnT concentration using this assay should be considered elevated. According to the third universal definition of myocardial infarction the following criteria with a clinical presentation consistent with acute myocardial ischemia meets the diagnosis for a myocardial infarction (MN). Detection of a rise and/or fall of cTnT, with at least one value greater than the 99th percentile (> or = 0.01) and with at least one of the following ?? Symptoms of ischemia ?? New or presumed new significant FI-kfuqmpl-F wave (ST-T) changes or new left bundle [...] additional sample may be indicated. Reference: Third [place] Definition of Myocardial Infarction. Journal of the [place] [employer] 2012;60:1581-98 Creatine Kinase 305(H) 0 - 200 unit/L [facility] Blood specimen (specimen) 02/03/2017 3:00 PM EDT 02/03/2017 3:22 PM EDT Narrative Resulting Agency Comment Spec In Lab Shoshana Moyer APRN CHEMISTRY ORDERABLES [facility] [place] [address] * TSH (02/03/2017 3:00 PM EDT) Thyroid Stimulating Hormone 1.18 0.27 - 4.20 mlU/ML [facility] Blood specimen (specimen) 02/03/2017 3:00 PM EDT 02/03/2017 3:22 PM EDT Narrative Resulting Agency Comment Spec In Lab Inder Medley MD CHEMISTRY ORDERABLES Performing Organization Address [facility]/ZIP Co de Phone Number [facility] [place] [address] * XR Chest PA & Lateral (Generic) (02/03/2017 2:35 PM EDT) Anatomical Region Laterality Modality Chest N/A Digital Radiogra phy Impressions 02/03/2017 3:15 PM EDT 1. Heart size probably within normal limits given body habitus and prior abdominal CT. 2. Ectatic ascending and descending thoracic aorta. I have personally reviewed the image(s) and the residents interpretation and agree with the findings, Johan Moe at 02/03/2017 3:15 PM Narrative 02/03/2017 3:15 PM EDT EXAMINATION: XR CHEST PA AND LATERAL (GENERIC) CLINICAL HISTORY: asses for cardiomegaly TECHNIQUE: PA and lateral chest x-ray COMPARISON: Chest radiograph 04/13/[address] 08/11/2014 FINDINGS: Lungs are clear. Pronounced aortic knob. Ectatic ascending and descending thoracic aorta. Yudi and pulmonary vasculature are within normal limits. Heart size within normal limits given body habitus (see prior abdominal CT 08/11/2014). No pneumothorax. No pleural effusion. Procedure Note Johan Moe MD - 02/03/2017 EXAMINATION: XR CHEST PA AND LATERAL (GENERIC) CLINICAL HISTORY: asses for cardiomegaly TECHNIQUE: PA and lateral chest x-ray COMPARISON: Chest radiograph 04/13/[address] 08/11/2014 FINDINGS: Lungs are clear. Pronounced aortic knob. Ectatic ascending anddescending thoracic aorta. Yudi and pulmonary vasculature are within normal limits.Heart size within normal limits given body habitus (see prior abdominal CT08/11/2014). No pneumothorax. No pleural effusion. IMPRESSION 1. Heart size probably within normal limits given body habitus and prior abdominal CT. 2. Ectatic ascending and descending thoracic aorta. I have personally reviewed the image(s) and the residents interpretationand agree with the findings, Johan Moe at 02/03/2017 3:15 PM Inder Medley MD IMG DX ORDERABLES * ECHO COMPLETE W CONTRAST (02/03/2017 1:08 PM EDT) EF 35 HEARTLAB SYSTEM Anatomical Region Laterality Modality Other 02/03/2017 Narrative 02/03/2017 1:43 PM EDT Procedure: ?Transthoracic Echocardiogram Patient: ?EDD Hatch ?(Age): 1935(81y) Med Rec#: ? [id number] ?Sex: ?M ? [place] Loc: ? [facility] [place]Ht / Wt: ??175(cm)/85(kg) Pt. Loc: ?Adult Floor ? BSA: ?2.01 Study Date: ?? 02/03/2017 ?Pt. Type: Inpatient Tape: ? Referring: CRISTAL Referring: Inder Medley Reading: Mason Beth ([id number]) Activities Leader: Sonia Marcial Diagnosis: *ICD-10-PCS Non-ST elevation (NSTEMI) myocardial infarction (I21.4) BP: ? 173/101 SUMMARY: 1. The left ventricular chamber size [...] See report below for remainder of findings. Findings ? : Left Ventricle: ? The left ventricular chamber size is normal. ?Basal septal hypertrophy is observed. ?There is no evidence of LVOT obstruction. ?Global left ventricular systolic function is moderately reduced. ?The quantitative left ventricular ejection fraction by biplane Dowd's method is 35%. ?There are left ventricular segmental wall motion abnormalities present, as shown in the diagram below. ?Assessment of diastolic function is indeterminate. ?The ??basal anteroseptal, mid anterolateral, mid inferolateral, and mid inferior wall segments are hypokinetic (score 2). ?The ??mid anteroseptal, mid anterior, mid inferoseptal, apical septal, apical anterior, apical lateral, and ??apical inferior wall segments are akinetic (score 3). ?Overall wallmotion score index is ??2.13 ?Cannot rule out a thrombus in the left ventricle. Left Atrium: ? The left atrium is mildly dilated. ?There is no evidence of a patent foramen ovale by color Doppler. Right Ventricle: ? The right ventricle is normal in size. ?Right ventricular global systolic function is normal. ?The estimated pulmonary artery systolic pressure is 26 mmHg. ?The estimated right atrial pressure is 8 mmHg. Right Atrium: ? The right atrium is normal in size. Aortic Valve: ? The aortic valve is tricuspid. ?Systolic excursion of the aortic valve is normal. ?There is no evidence of aortic valve stenosis. ?There is a trace of aortic regurgitation present. Mitral Valve: ? The mitral valve leaflets appear normal. ?There is mild (1+/4+) mitral regurgitation present. Tricuspid Valve: ? The tricuspid valve leaflets are morphologically normal. ?There is mild (1+/4+) tricuspid regurgitation present. Pulmonic Valve: ? The pulmonic valve appears normal in structure and function. Pericardium: ? The pericardium appears normal and there is no evidence of a pericardial effusion. Aorta: ? There is mild dilatation of the aortic root. ?There is moderate dilatation of the ascending aorta.The ascending aorta measures between 3.9 and 4.1 cm in diameter. Pulmonary Artery: ? The main pulmonary artery appears normal. Venous: ? The inferior vena cava appears normal in size. ?There is less than 50% respiratory change in the inferior vena cava dimension consistent with elevated right atrial pressure. Misc: ? Two-dimensional echo, spectral Doppler and color Doppler performed. ?Optison contrast (one 3 ml vial) was used to enhance endocardial definition. Excess contrast was discarded. Chambers 2D ?Value ?Units (Range) ? IVSd (2D) ? 1.6 ?cm ? LVPWd (2D) ?1.1 ?cm ? IVS:LVPW ratio (2D) 1.4 ?ratio ? RWT (2D) ?0.5 ?ratio ? RWT PW (2D) ? 0.4 ?ratio ? LVIDd (2D) ?5 ?cm ? LVIDs (2D) ?3.3 ?cm ? LVIDd (2D) index ?2.5 ?cm/m2 ? LVIDs (2D) index ?1.6 ?cm/m2 ? LV FS (2D) ?34 ? % ? EF Teichholz (2D) ?? 63 ? % ? Ao root diameter (2D4.2 ?cm (2.1 - 3.6) ? Ascending Ao ?4 ?cm (2 - 3.5) ? Volumes/Mass ?Value ?Units (Range) ? LA Area 4 CH ?21.7 ? cm2 (<21) ? LA ESV BP (A/L) inde35.4 ? ml/m2 ? RA AREA 4CH ? 16.3 ? cm2 ? LV ESV SP 4CH (MOD) 98.7 ? ml ? LV ESV SP 2CH (MOD) 104.5 ?ml ? LV EDV BP ? 158.6 ?ml ? LV ESV BP ? 102.8 ?ml ? LV EDV BP index ? 78.9 ? ml/m2 ? LV ESV BP index ? 51.2 ? ml/m2 ? BP EF (MOD) ? 35 ? % ? LV mass (2D) ?273.4 ?g ? LV mass (2D) index ??136 ?g/m2 ? Diastolic/Systolic Function ?Value ?Units (Range) ? MV E-wave Vmax ?0.5 ?m/sec ? MV deceleration time80.4 ? msec ? MV A-wave Vmax ?1.1 ?m/sec ? MV E:A ratio ?0.4 ?ratio ? LV septal e' Vmax ?? 0 ?m/sec ? LV lateral e' Vmax ??0 ?m/sec ? LV average e' Vmax ??0 ?m/sec ? LV E:e' septal ratio11.4 ? ratio ? LV E:e' lateral rati11.4 ? ratio ? LV average E:e' rati11.4 ? ratio ? Tricuspid Valve ?Value ?Units (Range) ? TR Vmax ? 2.1 ?m/sec ? TR peak gradient ?18.3 ? mmHg ? RAP ? 8 ?mmHg ? RVSP ?26 ? mmHg ? Wall Motion: Segment Name ?Rest ? Base-Anteroseptal ?? Hypokinetic ? Base-Anterior ? Normal ? Base-Anterolateral ??Normal ? Base-Posterolateral Normal ? Base-Inferior ? Normal ? Base-Inferoseptal ?? Normal ? Mid-Anteroseptal ?Akinetic ? Mid-Anterior ?Akinetic ? Mid-Anterolateral ?? Hypokinetic ? Mid-Posterolateral ??Hypokinetic ? Mid-Inferior ?Hypokinetic ? Mid-Inferoseptal ?Akinetic ? Carlton-Septal ? Akinetic ? Carlton-Anterior ? Akinetic ? Carlton-Lateral ?Akinetic ? Carlton-Inferior ? Akinetic ? Carlton-Tip ?Akinetic ? This report has been electronically signed by: Mason Beth MD ? 02/03/2017 13:42:39 Images reviewed and interpretation verified [facility] Cardiac Ultrasound Laboratory Procedure Note Mason Beth MD - 02/03/2017 Procedure: Transthoracic Echocardiogram Patient: EDD Hatch (Age): 1935(81y) Med Rec#: [id number] Sex: M [place] Loc: [facility] Ht / Wt: 175(cm)/85(kg) Pt. Loc: Adult Floor BSA: 2.01 Study Date: 02/03/2017 Pt. Type: Inpatient Tape: Referring: GRANTYEISON Referring: Inder Medley Reading: Mason Beth ([id number]) Activities Leader: Sonia Marcial Diagnosis: *ICD-10-PCS Non-ST elevation (NSTEMI) myocardial infarction (I21.4) BP: 173/101 SUMMARY: 1. The left ventricular chamber size [...] See report below for remainder of findings. Findings : Left Ventricle: The left ventricular chamber size is normal. Basal septal hypertrophy is observed. There is no evidence of LVOT obstruction. Global left ventricular systolic function is moderately reduced. The quantitative left ventricular ejection fraction by biplane Dowd's method is 35%. There are left ventricular segmental wall motion abnormalities present, as shown in the diagram below. Assessment of diastolic function is indeterminate. The basal anteroseptal, mid anterolateral, mid inferolateral, and mid inferior wall segments are hypokinetic (score 2). The mid anteroseptal, mid anterior, mid inferoseptal, apical septal, apical anterior, apical lateral, and apical inferior wall segments are akinetic (score 3). Overall wallmotion score index is 2.13 Cannot rule out a thrombus in the left ventricle. Left Atrium: The left atrium is mildly dilated. There is no evidence of a patent foramen ovale by color Doppler. Right Ventricle: The right ventricle is normal in size. Right ventricular global systolic function is normal. The estimated pulmonary artery systolic pressure is 26 mmHg. The estimated right atrial pressure is 8 mmHg. Right Atrium: The right atrium is normal in size. Aortic Valve: The aortic valve is tricuspid. Systolic excursion of the aortic valve is normal. There is no evidence of aortic valve stenosis. There is a trace of aortic regurgitation present. Mitral Valve: The mitral valve leaflets appear normal. There is mild (1+/4+) mitral regurgitation present. Tricuspid Valve: The tricuspid valve leaflets are morphologically normal. There is mild (1+/4+) tricuspid regurgitation present. Pulmonic Valve: The pulmonic valve appears normal in structure and function. Pericardium: The pericardium appears normal and there is no evidence of a pericardial effusion. Aorta: There is mild dilatation of the aortic root. There is moderate dilatation of the ascending aorta.The ascending aorta measures between 3.9 and 4.1 cm in diameter. Pulmonary Artery: The main pulmonary artery appears normal. Venous: The inferior vena cava appears normal in size. There is less than 50% respiratory change in the inferior vena cava dimension consistent with elevated right atrial pressure. Misc: Two-dimensional echo, spectral Doppler and color Doppler performed. Optison contrast (one 3 ml vial) was used to enhance endocardial definition. Excess contrast was discarded. Chambers 2D Value Units (Range) IVSd (2D) 1.6 cm LVPWd (2D) 1.1 cm IVS:LVPW ratio (2D) 1.4 ratio RWT (2D) 0.5 ratio RWT PW (2D) 0.4 ratio LVIDd (2D) 5 cm LVIDs (2D) 3.3 cm LVIDd (2D) index 2.5 cm/m2 LVIDs (2D) index 1.6 cm/m2 LV FS (2D) 34 % EF Teichholz (2D) 63 % Ao root diameter (2D4.2 cm (2.1 - 3.6) Ascending Ao 4 cm (2 - 3.5) Volumes/Mass Value Units (Range) LA Area 4 CH 21.7 cm2 (<21) LA ESV BP (A/L) inde35.4 ml/m2 RA AREA 4CH 16.3 cm2 LV ESV SP 4CH (MOD) 98.7 ml LV ESV SP 2CH (MOD) 104.5 ml LV EDV BP 158.6 ml LV ESV BP 102.8 ml LV EDV BP index 78.9 ml/m2 LV ESV BP index 51.2 ml/m2 BP EF (MOD) 35 % LV mass (2D) 273.4 g LV mass (2D) index 136 g/m2 Diastolic/Systolic Function Value Units (Range) MV E-wave Vmax 0.5 m/sec MV deceleration time80.4 msec MV A-wave Vmax 1.1 m/sec MV E:A ratio 0.4 ratio LV septal e' Vmax 0 m/sec LV lateral e' Vmax 0 m/sec LV average e' Vmax 0 m/sec LV E:e' septal ratio11.4 ratio LV E:e' lateral rati11.4 ratio LV average E:e' rati11.4 ratio Tricuspid Valve Value Units (Range) TR Vmax 2.1 m/sec TR peak gradient 18.3 mmHg RAP 8 mmHg RVSP 26 mmHg Wall Motion: Segment Name Rest Base-Anteroseptal Hypokinetic Base-Anterior Normal Base-Anterolateral Normal Base-Posterolateral Normal Base-Inferior Normal Base-Inferoseptal Normal Mid-Anteroseptal Akinetic Mid-Anterior Akinetic Mid-Anterolateral Hypokinetic Mid-Posterolateral Hypokinetic Mid-Inferior Hypokinetic Mid-Inferoseptal Akinetic Carlton-Septal Akinetic Carlton-Anterior Akinetic Carlton-Lateral Akinetic Carlton-Inferior Akinetic Carlton-Tip Akinetic This report has been electronically signed by: Mason Beth MD 02/03/2017 13:42:39 Images reviewed and interpretation verified [facility] Cardiac Ultrasound Laboratory Inder Medley MD ECHO ORDERABLES * POCT Glucose (02/03/2017 11:50 AM EDT) [facility] Glucose, POC 138 65 - 199 mg/dL [facility] Comment: Supplemental ranges: <140 mg/dL before meals <180 mg/dL all other times of the day Blood specimen (specimen) 02/03/2017 11:50 AM EDT 02/03/2017 11:50 AM EDT Bayron Oliva MD POINT OF CARE TEST O RDERABLES Performing Organization Address [facility] Co de Phone Number [facility] [place] [address] * (ABNORMAL) APTT (02/03/2017 11:50 AM EDT) [facility] Partial Thromboplastin Time 54(H) 25 - 35 sec [facility] Comment: The recommended therapeutic range for full dose, unfractionated heparin at [facility] is 80 ? 114 seconds. The use of the anti-Xa (heparin) level rather than the PTT is recommended for monitoring anticoagulation intensity in critically ill patients receiving unfractionated heparin by continuous IV infusion. Blood specimen (specimen) 02/03/2017 11:50 AM EDT 02/03/2017 12:05 PM EDT Narrative Resulting Agency Comment Spec In Lab Shoshana Moyer APRN HEMATOLOGY ORDERABLE S Performing Organization Address City/[facility]/ZIP Co de Phone Number [facility] [place] [address] * POCT Glucose (02/03/2017 10:13 AM EDT) Glucose, POC 148 65 - 199 mg/dL [facility] Comment: Supplemental ranges: <140 mg/dL before meals <180 mg/dL all other times of the day Blood specimen (specimen) 02/03/2017 10:13 AM EDT 02/03/2017 10:13 AM EDT Inder Medley MD POINT OF CARE TEST O RDERABLES [facility] [place] [address] * (ABNORMAL) Differential, Automated (02/03/2017 9:35 AM EDT) Pathologist [facility] Neutrophil % 68.5 % [facility] Neutrophil Absolute 6.52(H) 1.70 - 6.10 x10(3)/mc L [facility] Lymph % 20.1 % [facility] Lymphocytes Abs 1.9 0.9 - 3.2 x10(3)/mc L [facility] Monocyte % 7.5 % [facility] Monocyte Abs 0.7 0.3 - 0.9 x10(3)/mc L [facility] Eos % 2.9 % [facility] Eosinophils Abs 0.3 0.0 - 0.4 x10(3)/mc L [facility] Basophil % 0.7 % [facility] Baso Absolute 0.1 0.0 - 0.1 x10(3)/mc L [facility] Immature Gran % 0.30 % [facility] Comment: Immature granulocytes(IG's)percentage and absolute count will include metamyelocytes, myelocytes, and promyelocytes. Blood smears from CBCs yielding IG's will be scanned manually for concordance. If this scan disagrees with the automated IG or if promyelocytes are noted, a manual differential will be performed. Immature Gran Absolute 0.03 0.00 - 0.04 x10(3)/mc L [facility] Blood specimen (specimen) 02/03/2017 9:35 AM EDT 02/03/2017 9:40 AM EDT Narrative Resulting Agency Comment Spec In Lab Shoshana Roach King RADHA HEMATOLOGY ORDERABLE S [facility] [place] [address] * Hemogram (02/03/2017 9:35 AM EDT) White Blood Cell 9.5 4.0 - 9.5 x10(3)/[facility] Red Blood Cell 4.99 4.58 - 5.54 x10(6)/[facility] Hemoglobin 15.3 13.7 - 16.5 gm/dL [facility] Hematocrit 44.5 40.5 - 48.5 % [facility] Mean Cell Volume 89.2 82.9 - 93.1 [facility] Mean Cell Hemoglobin 30.7 27.5 - 32.1 pg [facility] Mean Cell Hemoglobin Concentration 34.4 32.0 - 35.7 gm/dL [facility] Platelet 204 145 - 357 x10(3)/[facility] RDW Standard Deviation 37.7 36.0 - 45.0 [facility] RDW coefficient of variation 11.8 11.4 - 13.8 % [facility] Mean Platelet Volume 10.3 7.6 - 12.9 [facility] NRBC% auto 0.0 % [facility] NRBC Absolute 0.000 0.000 - 0.000 x10(3)/[facility] Blood specimen (specimen) 02/03/2017 9:35 AM EDT 02/03/2017 9:40 AM EDT Narrative Resulting Agency Comment Spec In Lab Shoshana J King RADHA HEMATOLOGY ORDERABLE S Performing Organization Address City/[facility]/ZIP Co de Phone Number [facility] [place] [address] * (ABNORMAL) Cardiac Enzymes (02/03/2017 9:35 AM EDT) Troponin-T 0.31(H) 0.00 - 0.00 ng/mL [facility] Comment: The 99th percentile for Troponin T is less than 0.01 ng/mL, any detectable cTnT concentration using this assay should be considered elevated. According to the third universal definition of myocardial infarction the following criteria with a clinical presentation consistent with acute myocardial ischemia meets the diagnosis for a myocardial infarction ([place]). Detection of a rise and/or fall of cTnT, with at least one value greater than the 99th percentile (> or = 0.01) and with at least one of the following ?? Symptoms of ischemia ?? New or presumed new significant BV-[id number]-G wave (ST-T) changes or new left bundle [...] additional sample may be indicated. Reference: Third [place] Definition of Myocardial Infarction. Journal of the [place] [employer] 2012;60:1581-98 Creatine Kinase 264(H) 0 - 200 unit/L [facility] Blood specimen (specimen) 02/03/2017 9:35 AM EDT 02/03/2017 9:40 AM EDT Narrative Resulting Agency Comment Spec In Lab Shoshana J King RADHA CHEMISTRY ORDERABLES Performing Organization Address [facility]/ZIP Co de Phone Number [facility] [place] [address] * (ABNORMAL) pro-Brain Natriuretic Peptide (02/03/2017 9:35 AM EDT) NT-proBNP 1,411(H) <=450 pg/mL [facility] Blood specimen (specimen) 02/03/2017 9:35 AM EDT 02/03/2017 9:40 AM EDT Narrative Resulting Agency Comment Spec In Lab Shoshana Moyer RADHA CHEMISTRY ORDERABLES Performing Organization Address [facility] Co de Phone Number [facility] [place] [address] * (ABNORMAL) APTT (02/03/2017 9:35 AM EDT) Partial Thromboplastin Time 64(H) 25 - 35 sec [facility] Comment: The recommended therapeutic range for full dose, unfractionated heparin at [facility] is 80 ? 114 seconds. The use of the anti-Xa (heparin) level rather than the PTT is recommended for monitoring anticoagulation intensity in critically ill patients receiving unfractionated heparin by continuous IV infusion. Blood specimen (specimen) 02/03/2017 9:35 AM EDT 02/03/2017 9:40 AM EDT Narrative Resulting Agency Comment Spec In Lab Shoshana Roach King RADAH HEMATOLOGY ORDERABLE S Performing Organization Address [facility] de Phone Number [facility] [place] [address] * Prothrombin Time (02/03/2017 9:35 AM EDT) Prothrombin Time 14.1 12.0 - 15.0 sec [facility] [...] may be appropriate depending on clinical circumstances. International Normalization Ratio 1.0 0.9 - 1.1 [facility] Blood specimen (specimen) 02/03/2017 9:35 AM EDT 02/03/2017 9:40 AM EDT Narrative Resulting Agency Comment Spec In Lab Shoshana Moyer APRN HEMATOLOGY ORDERABLE S [facility] [place] [address] * (ABNORMAL) Basic Metabolic Panel (non-fasting) (02/03/2017 9:35 AM EDT) Glucose 159 65 - 199 mg/dL [facility] Comment:Diabetes: >=200 mg/d L plus symptoms Blood Urea Nitrogen 15 10 - 20 mg/dL [facility] Creatinine 1.19 0.80 - 1.50 mg/dL [facility] Comment: Please note that the pediatric reference intervals supplied above were not validated at [facility]. Results from pediatric patients should be interpreted in conjunction to the patient's age, height and muscle mass. Sodium 140 135 - 145 mmol/L [facility] Potassium 4.0 3.5 - 5.0 mmol/L [facility] Comment: Please note: ??Patients with WBC >100,000 may have falsely elevated Potassium levels. ??For accurate Potassium quantification in these patients send serum separator tube (gold top) for subsequent determinations. ??Contact the Clinical Chemistry Laboratory if there are any questions. Chloride 103 98 - 107 mmol/L [facility] Carbon Dioxide 22 22 - 31 mmol/L [facility] Anion Gap 15 5 - 15 mmol/L [facility] Calcium 9.3 8.5 - 10.5 mg/dL [facility] Est Glomerular Filtration Rate 59(L) >=60 [facility] Comment: This estimated GFR (eGFR) value was calculated using the MDRD equation which has been validated on patients between the ages of 18 and 70. The MDRD should not be used to assess kidney function in patients < 18 years of age or in patients with extremes of body mass, or in patients with acute kidney failure. This value should be multiplied by 1.2 for patients. For further information please copy and paste the following links into your internet browser. [email or web address] Blood specimen (specimen) 02/03/2017 9:35 AM EDT 02/03/2017 9:40 AM EDT Narrative Resulting Agency Comment Spec In Lab Shoshana Moyer APRN CHEMISTRY ORDERABLES Performing Organization Address [facility] Co de Phone Number [facility] [place] [address] * EKG 12 Lead (02/03/2017 9:23 AM EDT) Ventricular rate 71 BPM MUSE SYSTEM Atrial Rate 71 BPM MUSE SYSTEM P-R Interval 236 ms MUSE SYSTEM QRS Duration 96 ms MUSE SYSTEM Q-T Interval 448 ms MUSE SYSTEM QTC Calculated (Bezet) 486 ms MUSE SYSTEM Calculated P [place] -5 degrees MUSE SYSTEM Calculated R [place] -17 degrees MUSE SYSTEM Calculated T [place] 79 degrees MUSE SYSTEM INTERPRETATION Sinus rhythm with 1st degree A-V block Inferior infarct , age undetermined T wave abnormality, consider anterolateral ischemia Abnormal ECG When compared with ECG of 12-APR-2011 07:31, T wave inversion now evident in Anterolateral leads Confirmed by MD Elsie, Rosendo Walker ([id number]) on 02/04/2017 9:15:41 AM MUSE SYSTEM 02/03/2017 9:23 AM EDT 02/04/2017 9:15 AM EDT Shoshana Moyer APRN ECG ORDERABLES Performing Organization Address [facility] Co de Phone Number MUSE SYSTEM documented in this encounter Visit Diagnoses Diagnosis Non-ST elevation myocardial infarction (NSTEMI) Acute myocardial infarction, subendocardial infarction, episode of care unspecified NSTEMI (non-ST elevated myocardial infarction) Acute myocardial infarction, subendocardial infarction, episode of care unspecified HTN (hypertension) Unspecified essential hypertension Diabetes mellitus type 2, noninsulin dependent Type II or unspecified type diabetes mellitus without mention of complication, not stated as uncontrolled documented in this encounter Admitting Diagnoses Diagnosis NSTEMI (non-ST elevated myocardial infarction) Acute myocardial infarction, subendocardial infarction, episode of care unspecified documented in this encounter Administered Medications Inactive Administered Medications - up to 3 most recent administrations Medication Order MAR Action Action Date Dose Rate Site acetaminophen (TYLENOL) tablet 650 mg 650 mg, Oral, EVERY 4 HOURS PRN, Starting on Fri02/03/17 at 1958, Until Fri02/05/17 at 1344, Pain, Maximum dose of acetaminophen is 4000 mg from all sources in 24 hours., Routine Given 02/04/2017 12:48 AM EDT 650 mg Given 02/03/2017 8:10 PM EDT 650 mg aspirin EC tablet 81 mg 81 mg, Oral, DAILY, First dose on Fri02/04/17 at 0900, Until Discontinued, Routine Given 02/05/2017 8:08 AM EDT 81 mg Given 02/04/2017 8:07 AM EDT 81 mg atorvastatin (LIPITOR) tablet 40 mg 40 mg, Oral, EVERY EVENING, First dose on Fri02/03/17 at 1700, Until Discontinued, Routine Given 02/04/2017 5:18 PM EDT 40 mg clopidogrel (PLAVIX) tablet 75 mg 75 mg, Oral, DAILY, First dose on Fri02/04/17 at 0900, Until Discontinued, Routine Given 02/05/2017 8:08 AM EDT 75 mg Given 02/04/2017 8:07 AM EDT 75 mg dextrose 50% IV syringe 25-50 mL 25-50 mL (12.5-25 g), Intravenous, EVERY 1 HOUR PRN, Starting on Fri02/03/17 at 1120, Until Fri02/05/17 at 1344, Low blood sugar, For BG 50-70: 120 mL Juice or Regular (not diet) soda OR 12.5 gram (25 mL) Dextrose 50% IV OR, if no IV access, 1 mg Glucagon IM. Recheck BG in 30 minutes. May repeat juice, dextrose or glucagon once per episode For BG less than 50: 240 mL Juice or Regular (not diet) soda OR 25 grams (50 mL) Dextrose 50% IV OR, if no IV access, 1 mg Glucagon IM. Recheck BG in 30 minutes. May repeat juice, dextrose, or glucagon once per episode. To avoid extravasation, push Dextrose 50% SLOWLY (3 mL over 1 minute) in a patent, running IV, preferably a central line. For persistent hypoglycemia, consider longer-acting treatment for the duration of the active insulin., Routine fentaNYL 50mcg/mL injection 25 mcg, Intravenous, Administer over 4 Hours, EVERY 15 MIN PRN, Starting on Fri02/03/17 at 1630, Until Fri02/03/17 at 1835, Pain, For sheath removal, May repeat once, while in Cath Recovery Unit, Cath (Recovery-Hospital Unit), Routine Given 02/03/2017 5:50 PM EDT 25 mcg glucagon (human recombinant) injection SolR 1 mg 1 mg, Intramuscular, EVERY 1 HOUR PRN, Starting on Fri02/03/17 at 1120, Until Fri02/05/17 at 1344, Low blood sugar, For BG 50-70: 120 mL Juice or Regular (not diet) soda OR 12.5 gram (25 mL) Dextrose 50% IV OR, if no IV access, 1 mg Glucagon IM. Recheck BG in 30 minutes. May repeat juice, dextrose or glucagon once per episode For BG less than 50: 240 mL Juice or Regular (not diet) soda OR 25 grams (50 mL) Dextrose 50% IV OR, if no IV access, 1 mg Glucagon IM. Recheck BG in 30 minutes. May repeat juice, dextrose, or glucagon once per episode. To avoid extravasation, push Dextrose 50% SLOWLY (3 mL over 1 minute) in a patent, running IV, preferably a central line. For persistent hypoglycemia, consider longer-acting treatment for the duration of the active insulin., Routine heparin (porcine) 25,000 unit/500 mL (50 unit/mL) infusion 1 dose, Starting on Fri02/03/17 at 0842, Until Fri02/03/17 at 0850, SYDNIE CLARK: kenna override heparin (porcine) injection 0-4,000 Units 0-4,000 Units, Intravenous, BOLUS PER HEPARIN PROTOCOL, Starting on Fri02/03/17 at 0902, Until Fri02/03/17 at 1623, Per Protocol, START ADJUSTMENT SCHEDULE 6 HOURS AFTER STARTING INFUSION aPTT Between 60 - 79 seconds: Bolus 2,000 units aPTT Less than 60 seconds: Bolus 4,000 units Increase infusion and recheck aPTT in 6 hours. , Routine Given 02/03/2017 12:52 PM EDT 4,000 Units heparin 25,000 units in dextrose 5% 500 mL infusion 0-5,000 Units/hr (0-100 mL/hr), Intravenous, CONTINUOUS, Starting on Fri02/03/17 at 0930, Until Fri02/03/17 at 1623, BEGIN infusion at 1,000 units per hr (12 units/kg/hr). MAX INITIAL infusion rate is 1,000 units/hr. Target PTT = 80 - 114 seconds Start adjustment schedule 6 hours after starting infusion. If PTT is: - less than 60 seconds, Administer PRN bolus and increase rate by 350 units per hr (4 units/kg/hr) - 60 - 79 seconds, Administer PRN bolus and increase rate by 150 units per hr (2 units/kg/hr) - 80 - 114 seconds, No Change - 115 - 129 seconds, decrease rate by 100 units per hr (1 units/kg/hr) - 130 - 145 seconds, stop infusion for 30 minutes, then decrease rate by 150 units per hr (2 units/kg/hr) - Greater than 145 seconds, stop infusion for 60 minutes, then decrease rate by 250 units per hour (3 units/kg/hr) Repeat aPTT 6 hours after initiating heparin. Then 6 hours after each dose adjustment. When 2 consecutive aPTT within target range of 80 - 114 seconds, change aPTT to once every 24 hours with A.M. labs while on heparin. RN to order required aPTT - Per Protocol, Routine, Indication: ACS (STEMI vs NSTEMI vs UA) Rate/Dose Change 02/03/2017 12:51 PM EDT 1,350 Units/hr 27 mL/hr New Bag 02/03/2017 8:50 AM EDT 1,000 Units/hr 20 mL/hr insulin lispro (humaLOG) VIAL injection 1-4 Units 1-4 Units, Subcutaneous, 3 TIMES DAILY BEFORE MEALS, First dose on Fri02/03/17 at 1145, Until Discontinued, CORRECTION BOLUS Sensitive to insulin lean patient or total daily dose of all insulin needed to achieve glycemic control less than 30 units BG 140 - 160 Give 1 unit BG 161 - 200 Give 2 units BG 201 - 240 Give 3 units BG greater than 240, give 4 units and recheck BG in 2 hours. If less than 240 after two hours, give no insulin and resume prior schedule. If BG remains greater than 240, repeat 4 units (no more than three times) & call for new basal insulin orders. DO NOT hold if NPO, unless specifically told to do so., Routine Given 02/05/2017 8:07 AM EDT 1 Units Given 02/04/2017 12:37 PM EDT 1 Units Given 02/04/2017 8:07 AM EDT 2 Units lisinopril (PRINIVIL;ZESTRIL) tablet 20 mg 20 mg, Oral, DAILY, First dose on Fri02/04/17 at 1245, Until Discontinued, Routine Given 02/05/2017 8:08 AM EDT 20 mg Given 02/04/2017 12:36 PM EDT 20 mg meTOPROLOL (LOPRESSOR) tablet 12.5 mg 12.5 mg, Oral, EVERY 6 HOURS SCHEDULED, First dose on Fri02/03/17 at 1200, Until Discontinued, Hold for SBP less than 90 mmHG or HR less than 50 beats per minute, Routine Given 02/03/2017 11:52 AM EDT 12.5 mg meTOPROLOL succinate (TOPROL-XL) XL tablet 100 mg 100 mg, Oral, DAILY, First dose on Fri02/05/17 at 1000, Until Discontinued, DO NOT CRUSH OR OPEN, Routine Given 02/05/2017 10:00 AM EDT 100 mg meTOPROLOL tartrate (LOPRESSOR) tablet 25 mg 25 mg, Oral, EVERY 6 HOURS SCHEDULED, First dose (after last modification) on Fri02/03/17 at 1800, Until Discontinued, Hold for SBP less than 90 mmHG or HR less than 50 beats per minute, Routine Given 02/05/2017 5:44 AM EDT 25 mg Given 02/04/2017 11:04 PM EDT 25 mg Given 02/04/2017 5:18 PM EDT 25 mg morphine 2 mg/mL carpuject 2 mg 2 mg, Intravenous, ONCE, 1 dose, On Fri02/03/17 at 2015, Routine Given 02/03/2017 8:10 PM EDT 2 mg morphine 2 mg/mL carpuject 2 mg 2 mg, Intravenous, EVERY 4 HOURS PRN, Starting on Fri02/03/17 at 2113, Until Fri02/05/17 at 1344, Pain, Routine Given 02/03/2017 9:22 PM EDT 2 mg nitroGLYcerin (NITROSTAT) SL tablet 0.4 mg 0.4 mg, Sublingual, EVERY 5 MIN PRN, Starting on Fri02/03/17 at 1630, Until Fri02/03/17 at 2055, Chest pain, May repeat every 5 minutes for a total of three doses. Notify provider if chest pain not relieved with nitroglycerin. Do not administer nitroglycerin if the patinet has received or taken phosphodiesterase (PDE-5) inhibitors such as sildenafil, tadalafil or vardenafil within the last 24 to 72 hours., Recovery (Recovery-Hospital Unit), Routine Given 02/03/2017 4:44 PM EDT 0.4 mg nitroGLYcerin (NITROSTAT) SL tablet 0.4 mg 0.4 mg, Sublingual, EVERY 5 MIN PRN, Chest pain, Starting on Fri02/03/17 at 2055, Until Fri02/05/17 at 1344, SL nitroglycerin may be repeated every 5 minutes as needed up to 3 doses Given 02/03/2017 9:01 PM EDT 0.4 mg sodium chloride 0.9% infusion 100 mL/hr, Intravenous, CONTINUOUS, Starting on Fri02/03/17 at 1700, Until Fri02/03/17 at 2159, Recovery (Recovery-Hospital Unit) [facility] 02/03/2017 4:57 PM EDT 100 mL/hr 100 mL/hr tamsulosin (FLOMAX) ER capsule 0.4 mg 0.4 mg, Oral, DAILY, First dose on Fri02/03/17 at 1145, Until Discontinued, DO NOT CRUSH OR OPEN, Routine Given 02/05/2017 8:08 AM EDT 0.4 mg Given 02/04/2017 8:07 AM EDT 0.4 mg Given 02/03/2017 2:02 PM EDT 0.4 mg documented in this encounter Active and Recently Administered Medications Times are shown in EDT. Scheduled Medication Order 02/03/2017 02/04/2017 02/05/2017 aspirin EC tablet 81 mg 81 mg, Oral, DAILY, First dose on Fri02/04/17 at 0900, Until Discontinued, Routine 1514 (JUL Hold - Provider: Admin Adt - Reason: Transfer to a Procedural area)1836 (MAR Unhold - Provider: Admin Adt) 0807 (Given - Provider: Angie Escobar RN) 0808 (Given - Provider: Angie Escobar RN) atorvastatin (LIPITOR) tablet 40 mg 40 mg, Oral, EVERY EVENING, First dose on Fri02/03/17 at 1700, Until Discontinued, Routine 1514 (JUL Hold - Provider: Admin Adt - Reason: Transfer to a Procedural area)1700 (Automatically Held - Provider: Admin Adt)1836 (JUL Unhold - Provider: Admin Adt) 1718 (Given - Provider: Angie Escobar RN) clopidogrel (PLAVIX) tablet 75 mg 75 mg, Oral, DAILY, First dose on Fri02/04/17 at 0900, Until Discontinued, Routine 1514 (JUL Hold - Provider: Admin Adt - Reason: Transfer to a Procedural area)1836 (JUL Unhold - Provider: Admin Adt) 0807 (Given - Provider: Angie Escobar RN) 0808 (Given - Provider: Angie Escobar RN) insulin lispro (humaLOG) VIAL injection 1-4 Units(Linked Group 1) 1-4 Units, Subcutaneous, 3 TIMES DAILY BEFORE MEALS, First dose on Fri02/03/17 at 1145, Until Discontinued, CORRECTION BOLUS Sensitive to insulin lean patient or total daily dose of all insulin needed to achieve glycemic control less than 30 units BG 140 - 160 Give 1 unit BG 161 - 200 Give 2 units BG 201 - 240 Give 3 units BG greater than 240, give 4 units and recheck BG in 2 hours. If less than 240 after two hours, give no insulin and resume prior schedule. If BG remains greater than 240, repeat 4 units (no more than three times) & call for new basal insulin orders. DO NOT hold if NPO, unless specifically told to do so., Routine 1152 (Not Given - Provider: Sydnie Clark RN - Reason: Order parameters not met)1514 (JUL Hold - Provider: Admin Adt - Reason: Transfer to a Procedural area)1630 (Automatically Held - Provider: Admin Adt)1836 (JUL Unhold - Provider: Admin Adt) 0807 (Given - Provider: Angie Escobar RN)1237 (Given - Provider: Angie Escobar RN)1630 (Not Given - Provider: Angie Escobar RN - Reason: Order parameters not met) 0807 (Given - Provider: Angie Escobar RN)1130 (Due - Provider: Admin Adt) lisinopril (PRINIVIL;ZESTRIL) tablet 20 mg 20 mg, Oral, DAILY, First dose on Fri02/04/17 at 1245, Until Discontinued, Routine 1236 (Given - Provider: Angie Escobar RN) 0808 (Given - Provider: Angie Escobar RN) meTOPROLOL (LOPRESSOR) tablet 12.5 mg (CANCELED) 12.5 mg, Oral, EVERY 6 HOURS SCHEDULED, First dose on Fri02/03/17 at 1200, Until Discontinued, Hold for SBP less than 90 mmHG or HR less than 50 beats per minute, Routine 1152 (Given - Provider: Sydnie Clark RN)1514 (JUL Hold - Provider: Admin Adt - Reason: Transfer to a Procedural area)1519 (JUL Unhold - Provider: Admin Adt) meTOPROLOL succinate (TOPROL-XL) XL tablet 100 mg 100 mg, Oral, DAILY, First dose on Fri02/05/17 at 1000, Until Discontinued, DO NOT CRUSH OR OPEN, Routine 1000 (Given - Provider: Angie Escobar RN) meTOPROLOL tartrate (LOPRESSOR) tablet 25 mg (CANCELED) 25 mg, Oral, EVERY 6 HOURS SCHEDULED, First dose (after last modification) on Fri02/03/17 at 1800, Until Discontinued, Hold for SBP less than 90 mmHG or HR less than 50 beats per minute, Routine 1940 (Given - Provider: Lexi Mancuso RN) 0039 (Given - Provider: Lexi Mancuso RN)0633 (Given - Provider: Lexi Mancuso RN)1236 (Given - Provider: Angie Escobar RN)1718 (Given - Provider: Angie Escobar RN)2304 (Given - Provider: Anne-Marie Mullins, MARILYN) 0544 (Given - Provider: Anne-Marie Mullins, MARILYN) morphine 2 mg/mL carpuject 2 mg (COMPLETED) 2 mg, Intravenous, ONCE, 1 dose, On Fri02/03/17 at 2015, Routine 2010 (Given - Provider: Lexi Mancuso RN) tamsulosin (FLOMAX) ER capsule 0.4 mg 0.4 mg, Oral, DAILY, First dose on Fri02/03/17 at 1145, Until Discontinued, DO NOT CRUSH OR OPEN, Routine 1402 (Given - Provider: Sydnie Clark RN)1514 (JUL Hold - Provider: Admin Adt - Reason: Transfer to a Procedural area)1836 (JUL Unhold - Provider: Admin Adt) 0807 (Given - Provider: Angie Escobar, MARILYN) 0808 (Given - Provider: Angie Escobar, MARILYN) Continuous Medication Order 02/03/2017 02/04/2017 02/05/2017 heparin 25,000 units in dextrose 5% 500 mL infusion (CANCELED)(Linked Group 2) 0-5,000 Units/hr (0-100 mL/hr), Intravenous, CONTINUOUS, Starting on Fri02/03/17 at 0930, Until Fri02/03/17 at 1623, BEGIN infusion at 1,000 units per hr (12 units/kg/hr). MAX INITIAL infusion rate is 1,000 units/hr. Target PTT = 80 - 114 seconds Start adjustment schedule 6 hours after starting infusion. If PTT is: - less than 60 seconds, Administer PRN bolus and increase rate by 350 units per hr (4 units/kg/hr) - 60 - 79 seconds, Administer PRN bolus and increase rate by 150 units per hr (2 units/kg/hr) - 80 - 114 seconds, No Change - 115 - 129 seconds, decrease rate by 100 units per hr (1 units/kg/hr) - 130 - 145 seconds, stop infusion for 30 minutes, then decrease rate by 150 units per hr (2 units/kg/hr) - Greater than 145 seconds, stop infusion for 60 minutes, then decrease rate by 250 units per hour (3 units/kg/hr) Repeat aPTT 6 hours after initiating heparin. Then 6 hours after each dose adjustment. When 2 consecutive aPTT within target range of 80 - 114 seconds, change aPTT to once every 24 hours with A.M. labs while on heparin. RN to order required aPTT - Per Protocol, Routine, Indication: ACS (STEMI vs NSTEMI vs UA) 0850 (New Bag - Provider: Sydnie Clark RN)1251 (Rate/Dose Change - Provider: Sydnie Clark RN)1500 (Stopped - Provider: Sydnie Clark RN)1514 (JUL Hold - Provider: Admin Adt - Reason: Transfer to a Procedural area)1623 (JUL Unhold - Provider: Admin Adt) sodium chloride 0.9% infusion () 100 mL/hr, Intravenous, CONTINUOUS, Starting on Fri02/03/17 at 1700, Until Fri02/03/17 at 2159, Recovery (Recovery-Hospital Unit) 1657 (New Bag - Provider: Essie Montana RN) PRN Medication Order 02/03/2017 02/04/2017 02/05/2017 acetaminophen (TYLENOL) tablet 650 mg 650 mg, Oral, EVERY 4 HOURS PRN, Starting on Fri02/03/17 at 1958, Until Fri02/05/17 at 1344, Pain, Maximum dose of acetaminophen is 4000 mg from all sources in 24 hours., Routine 2009 (Given - Provider: Lexi Mancuso, MARILYN) 47 (Given - Provider: Lexi Mancuso, MARILYN) dextrose 50% IV syringe 25-50 mL(Linked Group 3) 25-50 mL (12.5-25 g), Intravenous, EVERY 1 HOUR PRN, Starting on Fri02/03/17 at 1120, Until Fri02/05/17 at 1344, Low blood sugar, For BG 50-70: 120 mL Juice or Regular (not diet) soda OR 12.5 gram (25 mL) Dextrose 50% IV OR, if no IV access, 1 mg Glucagon IM. Recheck BG in 30 minutes. May repeat juice, dextrose or glucagon once per episode For BG less than 50: 240 mL Juice or Regular (not diet) soda OR 25 grams (50 mL) Dextrose 50% IV OR, if no IV access, 1 mg Glucagon IM. Recheck BG in 30 minutes. May repeat juice, dextrose, or glucagon once per episode. To avoid extravasation, push Dextrose 50% SLOWLY (3 mL over 1 minute) in a patent, running IV, preferably a central line. For persistent hypoglycemia, consider longer-acting treatment for the duration of the active insulin., Routine 1514 (JUL Hold - Provider: Admin Adt - Reason: Transfer to a Procedural area)1836 (JUL Unhold - Provider: Admin Adt) docusate sodium (COLACE) capsule 100 mg 100 mg, Oral, DAILY PRN, Starting on Fri02/03/17 at 1120, Until Fri02/05/17 at 1344, Constipation, Routine 1514 (JUL Hold - Provider: Admin Adt - Reason: Transfer to a Procedural area)1836 (JUL Unhold - Provider: Admin Adt) fentaNYL 50 mcg/mL multi-dose injection (CANCELED) ONCE PRN, Starting on Fri02/03/17 at 1533, Until Fri02/03/17 at 1623, Cath (Intra-Procedure), Routine 1533 (Given - Provider: Winston Gómez NRP)1557 (Given - Provider: Winston Gómez NRP)1603 (Given - Provider: Winston Gómez NRP) fentaNYL 50mcg/mL injection (CANCELED) 25 mcg, Intravenous, Administer over 4 Hours, EVERY 15 MIN PRN, Starting on Fri02/03/17 at 1630, Until Fri02/03/17 at 1835, Pain, For sheath removal, May repeat once, while in Cath Recovery Unit, Cath (Recovery-Hospital Unit), Routine 1750 (Given - Provider: Essie Montana RN) glucagon (human recombinant) injection SolR 1 mg(Linked Group 3) 1 mg, Intramuscular, EVERY 1 HOUR PRN, Starting on Fri02/03/17 at 1120, Until Fri02/05/17 at 1344, Low blood sugar, For BG 50-70: 120 mL Juice or Regular (not diet) soda OR 12.5 gram (25 mL) Dextrose 50% IV OR, if no IV access, 1 mg Glucagon IM. Recheck BG in 30 minutes. May repeat juice, dextrose or glucagon once per episode For BG less than 50: 240 mL Juice or Regular (not diet) soda OR 25 grams (50 mL) Dextrose 50% IV OR, if no IV access, 1 mg Glucagon IM. Recheck BG in 30 minutes. May repeat juice, dextrose, or glucagon once per episode. To avoid extravasation, push Dextrose 50% SLOWLY (3 mL over 1 minute) in a patent, running IV, preferably a central line. For persistent hypoglycemia, consider longer-acting treatment for the duration of the active insulin., Routine 1514 (JUL Hold - Provider: Admin Adt - Reason: Transfer to a Procedural area)1836 (JUL Unhold - Provider: Admin Adt) heparin (porcine) injection 0-4,000 Units (CANCELED)(Linked Group 2) 0-4,000 Units, Intravenous, BOLUS PER HEPARIN PROTOCOL, Starting on Fri02/03/17 at 0902, Until Fri02/03/17 at 1623, Per Protocol, START ADJUSTMENT SCHEDULE 6 HOURS AFTER STARTING INFUSION aPTT Between 60 - 79 seconds: Bolus 2,000 units aPTT Less than 60 seconds: Bolus 4,000 units Increase infusion and recheck aPTT in 6 hours. , Routine 1252 (Given - Provider: Sydnie Clark RN)1514 (JUL Hold - Provider: Admin Adt - Reason: Transfer to a Procedural area)1623 (JUL Unhold - Provider: Admin Adt) heparin (porcine) injection (CANCELED) ONCE PRN, Starting on Fri02/03/17 at 1543, Until Fri02/03/17 at 1623, Cath (Intra-Procedure), Routine 1543 (Given - Provider: Winston Gómez NRP) iohexol (OMNIPAQUE) 350 mg/mL solution (CANCELED) ONCE PRN, Starting on Fri02/03/17 at 1622, Until Fri02/03/17 at 1835, Cath (Intra-Procedure), Routine 1622 (Given - Provider: Madhu Forman MD) midazolam (PF) (VERSED) 1 mg/mL multi-dose injection (CANCELED) ONCE PRN, Starting on Fri02/03/17 at 1534, Until Fri02/03/17 at 1835, Cath (Intra-Procedure), Routine 1534 (Given - Provider: Winston Gómez NRP) morphine 2 mg/mL carpuject 2 mg 2 mg, Intravenous, EVERY 4 HOURS PRN, Starting on Fri02/03/17 at 2113, Until Fri02/05/17 at 1344, Pain, Routine 2122 (Given - Provider: Lexi Mancuso RN) niCARdipine (CARDENE) in sodium chloride 0.9% injection (CANCELED) ONCE PRN, Starting on Fri02/03/17 at 1602, Until Fri02/03/17 at 1836, Intra-Operative (Intra-Procedure), Routine 1602 (Given - Provider: Madhu Forman MD)1611 (Given - Provider: Madhu Forman MD) nitroGLYcerin (NITROSTAT) SL tablet 0.4 mg (CANCELED) 0.4 mg, Sublingual, EVERY 5 MIN PRN, Starting on Fri02/03/17 at 1630, Until Fri02/03/17 at 2055, Chest pain, May repeat every 5 minutes for a total of three doses. Notify provider if chest pain not relieved with nitroglycerin. Do not administer nitroglycerin if the patinet has received or taken phosphodiesterase (PDE-5) inhibitors such as sildenafil, tadalafil or vardenafil within the last 24 to 72 hours., Recovery (Recovery-Hospital Unit), Routine 1644 (Given - Provider: Essie Montana RN) nitroGLYcerin (NITROSTAT) SL tablet 0.4 mg 0.4 mg, Sublingual, EVERY 5 MIN PRN, Chest pain, Starting on Fri02/03/17 at 2055, Until Fri02/05/17 at 1344, SL nitroglycerin may be repeated every 5 minutes as needed up to 3 doses 2100 (Given - Provider: Lexi Mancuso RN) nitroGLYcerin 100 mcg/mL intracoronary dilution (CANCELED) ONCE PRN, Starting on Fri02/03/17 at 1534, Until Fri02/03/17 at 1835, Cath (Intra-Procedure), Routine 1534 (Given - Provider: Madhu Forman MD)1559 (Given - Provider: Madhu Forman MD) Linked Groups Order Group 1: POCT Fingerstick Glucose (CANCELED) Routine, 4 TIMES DAILY BEFORE MEALS & AT BEDTIME, First occurrence on Fri02/03/17 at 1700, Until Specified, Consider choosing FOUR TIMES A DAY BEFORE MEALS AND AT BEDTIME as frequency for: Patients who have good hypoglycemia awareness: -Patients who are eating meals during the day and sleeping at night -Patient who are otherwise stable And insulin lispro (humaLOG) VIAL injection 1-4 UnitsJump to med 1-4 Units, Subcutaneous, 3 TIMES DAILY BEFORE MEALS, First dose on Fri02/03/17 at 1145, Until Discontinued, CORRECTION BOLUS Sensitive to insulin lean patient or total daily dose of all insulin needed to achieve glycemic control less than 30 units BG 140 - 160 Give 1 unit BG 161 - 200 Give 2 units BG 201 - 240 Give 3 units BG greater than 240, give 4 units and recheck BG in 2 hours. If less than 240 after two hours, give no insulin and resume prior schedule. If BG remains greater than 240, repeat 4 units (no more than three times) & call for new basal insulin orders. DO NOT hold if NPO, unless specifically told to do so., Routine Group 2: heparin (porcine) injection 0-4,000 Units (CANCELED)Jump to med 0-4,000 Units, Intravenous, BOLUS PER HEPARIN PROTOCOL, Starting on Fri02/03/17 at 0902, Until Fri02/03/17 at 1623, Per Protocol, START ADJUSTMENT SCHEDULE 6 HOURS AFTER STARTING INFUSION aPTT Between 60 - 79 seconds: Bolus 2,000 units aPTT Less than 60 seconds: Bolus 4,000 units Increase infusion and recheck aPTT in 6 hours. , Routine And heparin 25,000 units in dextrose 5% 500 mL infusion (CANCELED)Jump to med 0-5,000 Units/hr (0-100 mL/hr), Intravenous, CONTINUOUS, Starting on Fri02/03/17 at 0930, Until Fri02/03/17 at 1623, BEGIN infusion at 1,000 units per hr (12 units/kg/hr). MAX INITIAL infusion rate is 1,000 units/hr. Target PTT = 80 - 114 seconds Start adjustment schedule 6 hours after starting infusion. If PTT is: - less than 60 seconds, Administer PRN bolus and increase rate by 350 units per hr (4 units/kg/hr) - 60 - 79 seconds, Administer PRN bolus and increase rate by 150 units per hr (2 units/kg/hr) - 80 - 114 seconds, No Change - 115 - 129 seconds, decrease rate by 100 units per hr (1 units/kg/hr) - 130 - 145 seconds, stop infusion for 30 minutes, then decrease rate by 150 units per hr (2 units/kg/hr) - Greater than 145 seconds, stop infusion for 60 minutes, then decrease rate by 250 units per hour (3 units/kg/hr) Repeat aPTT 6 hours after initiating heparin. Then 6 hours after each dose adjustment. When 2 consecutive aPTT within target range of 80 - 114 seconds, change aPTT to once every 24 hours with A.M. labs while on heparin. RN to order required aPTT - Per Protocol, Routine, Indication: ACS (STEMI vs NSTEMI vs UA) Group 3: dextrose 50% IV syringe 25-50 mLJump to med 25-50 mL (12.5-25 g), Intravenous, EVERY 1 HOUR PRN, Starting on Fri02/03/17 at 1120, Until Fri02/05/17 at 1344, Low blood sugar, For BG 50-70: 120 mL Juice or Regular (not diet) soda OR 12.5 gram (25 mL) Dextrose 50% IV OR, if no IV access, 1 mg Glucagon IM. Recheck BG in 30 minutes. May repeat juice, dextrose or glucagon once per episode For BG less than 50: 240 mL Juice or Regular (not diet) soda OR 25 grams (50 mL) Dextrose 50% IV OR, if no IV access, 1 mg Glucagon IM. Recheck BG in 30 minutes. May repeat juice, dextrose, or glucagon once per episode. To avoid extravasation, push Dextrose 50% SLOWLY (3 mL over 1 minute) in a patent, running IV, preferably a central line. For persistent hypoglycemia, consider longer-acting treatment for the duration of the active insulin., Routine Or glucagon (human recombinant) injection SolR 1 mgJump to med 1 mg, Intramuscular, EVERY 1 HOUR PRN, Starting on Fri02/03/17 at 1120, Until Fri02/05/17 at 1344, Low blood sugar, For BG 50-70: 120 mL Juice or Regular (not diet) soda OR 12.5 gram (25 mL) Dextrose 50% IV OR, if no IV access, 1 mg Glucagon IM. Recheck BG in 30 minutes. May repeat juice, dextrose or glucagon once per episode For BG less than 50: 240 mL Juice or Regular (not diet) soda OR 25 grams (50 mL) Dextrose 50% IV OR, if no IV access, 1 mg Glucagon IM. Recheck BG in 30 minutes. May repeat juice, dextrose, or glucagon once per episode. To avoid extravasation, push Dextrose 50% SLOWLY (3 mL over 1 minute) in a patent, running IV, preferably a central line. For persistent hypoglycemia, consider longer-acting treatment for the duration of the active insulin., Routine documented in this encounter Care Teams Relay Associate Relationship Specialty Start Date End Date Arely Moise MD [address] [place] [id number] PCP - General Family Medicine 09/16/16 documented as of this encounter
--- OUTSIDE RECORDS SUMMARY | 2023-12-21 07:53 | XMS_ITS | Encounter Summary ---
Author Organization [facility] Address [facility] [place] [address] Care Team Providers Care Camera Operator Name Role Phone Rolando Zacarias MD Primary Care Provider [phone] Encounter Details Date Type Department Care Team (Late st Contact Info) Description 10/07/2012 Orders [place] [id number] Skye Washington RN S/P aortic aneurysm repair (Primary Dx) Social History Tobacco Use Types [...] 1:30 PM EDT Laboratory Appointment Lab [address] [place] [phone] 01/02/2024 3:00 PM EDT Office Visit [place] [phone] Adam Costa MD [facility] [place] [address] documented as of this encounter Visit Diagnoses Diagnosis S/P aortic aneurysm repair- Primary Other postprocedural status documented in this encounter Care Teams Camera Operator Relationship Specialty Start Date End Date Rolando Zacarias MD PCP - General 04/12/11 09/15/16 documented as of this encounter
--- OUTSIDE RECORDS SUMMARY | 2023-12-21 07:53 | XMS_ITS | Encounter Summary ---
Author Organization [facility] Address [facility] [place] [address] Care Team Providers Care Market Development Specialist Name Role Phone Arely Moise MD Primary Care Provider [phone] Reason for Visit * Auth/Cert Specialty Diagnoses / Procedures Referred By Contac t Referred To Contact Diagnoses NSTEMI (non-ST elevated myocardial infarction) NSTEMI ?CAD Procedures CARDIAC CATHETERIZATION Referral ID Status Reason Start Date Expiration Date Visits Re quested Visits Authorized [id number] 1 1 Encounter Details Date Type Department Care Team (Late st Contact Info) Description 02/03/2017 2:40 PM EDT - 02/03/2017 3:40 PM EDT Surgery Printing Manager [facility] [place] [id number] Lydia Harden MD [facility] [place] [address] CARDIAC CATHETERIZATION Social History Tobacco Use Types Packs/Day Years [...] Cesar Thompson Patient Age: 81 y.o. Language: Turkish Race: White Ethnicity: Not nor Admit date: 02/03/2017 Discharge date and time: 02/05/2017 Attending Physician: Bayron Oliva MD Discharge Physician: Bayron Oliva MD Follow-up Recommendations for Providers: 1. Continue clopidogrel 75 mg and aspirin 81 mg PO daily for 12 months otherwise told differently by Surg Nurse. 2. Please monitor heart rate and blood pressure. 3. Start metoprolol XL 100 mg daily 4. Discontinue verapamil 120 mg tablet PO 5. Resume metformin 500 mg tablet PO two times a day, needs to take his second metformin dose tonight. Inpatient Provider Contact Information: Lili Ryan PA-C [facility] Provider # [id number] Discharge Diagnoses (Hospital Problems) and Secondary Diagnoses [...] above for more information.) History of Presentation: [facility] Comments: Mr. Thompson is an 81-year-old male with a past medical history of hypertension, AAA, hyperlipidemia and diabetes mellitus [id number] who presented to [facility] with complaint of inability to sleep and [...] to the ED. He drove himself. ?? [facility] did an EKG which showed sinus rhythm [...] is most likely a non-STEMI. ED called [facility] cardiology which recommended to start Plavix 300 mg orally and was started to heparin per ACS protocol. ?? Hospital Course: On admission to [facility], the patient had complaints of chest pain and some shortness of breath with exertion. Telemetry was attached which showed normal sinus rhythm. Heparin drip was infusing. [facility] records/transfer records were reviewed. Baseline labs were checked and/or drawn. NSTEMI Given the patient's risk factors and ECG changes, positive biomarkers, it was decided to proceed with coronary angiography. The patient went to the cardiac slab depiler operator for a diagnostic cath which showedone vessel [...] 2:00 PM Shoshana Gaspar APRN Cardiology at [place] [phone] Future Orders Complete By Expires Referral to Cardiac Rehab [[id number] Custom] As directed Process Instructions: If no progress note charted, please enter Clinical details in comments. Scheduling Instructions: Questions: My question or request is: NSTEMI, PCI. Cardiac rehab at [facility] Discharge References/Attachments MYRA INHIBITORS AND ARBS: GENERAL INFO (TAJIK) PCI (PERCUTANEOUS CORONARY INTERVENTION): POST-OP (TAJIK) HYPERTENSION: GENERAL INFO (TAJIK) Lili Ryan PA-C 02/05/2017 documented in this encounter Discharge Instructions * Discharge Instructions* Shoshana Gaspar APRN - 02/05/2017 10:31 AM EDT Anti-coagulation follow up: Continue on plavix and aspirin for at least 12 months until otherwise told by his Surg Nurse. Call your doctor if: Chest pain, shortness of breath, pain or swelling in legs occurs. If you have non-emergent questions between now and the time of your follow up appointments: During 8am-5pm Friday through Friday call [phone] to speak with a nurse in the cardiology clinic All other times call [phone] and ask to speak to the casino beverage server section plotter operator. Return to work: One week Driving: No driving for 48 hours after catheterization. Follow up Appointments: PCP Arely Moise MD [phone] Your follow up appointment is scheduled for February 12, 2017 at 10:00 am Cardiology [facility] : Shoshana Gaspar NP Your follow up appointment is scheduled for March at 1:45 pm. Resume metformin 500 mg tablet PO two times a day tonight (02/05) for evening dose * Attachments The following attachments cannot be sent through Care Everywhere. * MYRA INHIBITORS AND ARBS: GENERAL INFO (TAJIK) * PCI (PERCUTANEOUS CORONARY INTERVENTION): POST-OP (TAJIK) * HYPERTENSION: GENERAL INFO (TAJIK) documented in this encounter Medications at Time [...] Progress Note Patient Name: Cesar Thompson Service: EMISSIONS TESTING AND REPAIR TECHNICIAN / PA Responsible Attending: Bayron Oliva MD [...] thought content normal. Lab Comments: Recent Labs 02/05/1734202/04/1733202/03/17 0935 WBC 11.4* 14.6* 9.5 HGB 14.0 14.6 15.3 HCT 41.1 41.8 44.5 PLATELET 168 192 204 Recent Labs 02/03/17 0935 INR 1.0 Recent Labs 02/05/17 0343 02/04/173 02/03/17 0935 NA 140 139 140 K [...] 81 mg daily for 12 months per vocational rehabilitation supervisor. - continue Atorvastin, lisinopril. - Discontinue short [...] between care. SR/ST on tele with 1'AVB (VA 0.24), frequent PACs, occasional NS atrial trigem, HR 45-107. Pt sats well on RA; denied pain/discomfort and SOB throughout the shift. 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 PLAN MOVING FORWARD: [...] Progress Note Patient Name: Cesar Thompson Service: EMISSIONS TESTING AND REPAIR TECHNICIAN / PA Responsible Attending: Bayron Oliva MD [...] 81 mg daily for 12 months per vocational rehabilitation supervisor. - continue Atorvastin 40 mg daily - [...] of hypertension, AAA, hiperlididemia and diabetes mellitus [id number] who presented to [facility] with complaint of inability to sleep and [...] go to the ED. He drove himself. [facility] did an EKG which showed sinus rhythm [...] is most likely a non-STEMI. ED called [facility] cardiology which recommended to start Plavix 300 [...] ANEURYSM, S&I performed by ACACIA BRYANT at [facility] OR ??? PRO AAA REPAIR, 1ST VESSEL, EXTENSION PROSTH 04/12/2011 @EVG-PLACEMENT, CUFF OR EXT. AORTIC OR ILIAC ANEURYSM REPAIR, GORE performed by ACACIA BRYANT at [facility] OR ??? PRO AAA REPAIR, MODULR BIFUR PROSTH, 2-DOCK 04/12/2011 @EVG, AAA, W\ MODULAR BIFURCATED PROS. W\ 2 DOCKING LIMBS performed by ACACIA BRYANT at [facility] OR ??? PRO AAA REPR, EXPOSE FEMORAL ART, GROIN INCIS 04/12/2011 @EXPOSURE, OPEN FEM. ARTERY FOR ENDOVASCULAR PROSTHESIS, GROIN-FABIANA performed by ACACIA BRYANT at [facility] OR ? ? PRO ENDOVASC REPAIR INFRARENAL AAA/DISSECTION S&I 04/12/2011 @EVG, INFRARENAL AAA OR DISSECTION, S&I performed by ACACIA BRYANT at [facility] OR Significant Family History: No [...] Take 0.4 mg by mouth daily. ??? Vershire-3 Fatty Acids-Vitamin E (FISH OIL) 1,000 mg [...] of hypertension, AAA, hiperlididemia and diabetes mellitus fpe-hptfsov-qmjrcjcqu who presents to [facility] with complaint of inability to sleep and [...] -check A1c Provider: QUINN Ness Provider #: [id number] 02/03/2017 Cardiology staff addendum I have discussed, [...] Review Outcome: Ongoing (Interventions Implemented as Appropriate) 02/04/17 1801 Plan of Care Review Progress progress toward [...] Outcome: Ongoing (Interventions Implemented as Appropriate) 02/03/17199902/04/17 0602/04/171800 Musculoskeletal Interventions Muscle Strengthening -- -- activity/mobility [...] Conf Outcome: Ongoing (Interventions Implemented as Appropriate) 02/04/17 0416 Interdisciplinary Rounds/Family Conf Participants nursing;patient;physician Problem: Skin Integrity Impairment, Risk/Actual (Adult) Goal: Identify Related Risk Factors and Signs and Symptoms Related risk factors and signs and symptoms are identified upon initiation of Human Response Clinical Practice Guideline (CPG) Outcome: Ongoing (Interventions Implemented as Appropriate) 02/04/17 0416 Skin Integrity Impairment, Risk/Actual Skin Integrity Impairment, Risk/Actual: Related Risk Factors age extremes;surgery/procedure Goal: Skin Integrity/Wound Healing Patient will demonstrate the desired outcomes by discharge/transition of care. Outcome: Ongoing (Interventions Implemented as Appropriate) 02/04/17 1801 Skin Integrity Impairment, Risk/Actual (Adult) Skin Integrity/Wound [...] AN[facility]URYSM, [facility] OR ??? PRO AAA REPAIR, 1ST VESSEL, EXTENSION PROSTH 04/12/2011 @EVG-PLACEMENT, CUFF OR EXT. AORTIC OR ILIAC ANEURYSM REPAIR, GORE performed by ACACIA BRYANT at [facility] OR ??? PRO AAA REPAIR, MODULR BIFUR PROSTH, 2-DOCK 04/12/2011 @EVG, AAA, W\ MODULAR BIFURCATED PROS. W\ 2 DOCKING LIMBS performed by ACACIA BRYANT at [facility] OR ??? PRO AAA REPR, EXPOSE FEMORAL ART, GROIN INCIS 04/12/2011 @EXPOSURE, OPEN FEM. ARTERY FOR ENDOVASCULAR PROSTHESIS, GROIN-FABIANA performed by ACACIA BRYANT at [facility] OR ? ? PRO ENDOVASC REPAIR INFRARENAL AAA/DISSECTION S&I 04/12/2011 @EVG, INFRARENAL AAA OR DISSECTION, S&I performed by ACACIA BRYANT at [facility] OR Hospitalizations Within the Past 30 Days: [...] per patient Preferred Pharmacy: [facility]?? Other: [facility] mail order pharmacy Primary Care Provider: Arely Moise MD [phone] Patient/Caregiver Goals of Treatment: per medical team [...] of care planning. Shital Schmidt RN Pager: [phone] * Consult Note - Riya Kellogg RN [...] in the outpatient cardiac rehabilitation program at [facility] was discussed. Patient agrees to a referral [...] Ongoing assessment Goal: Fall Prevention-Safe Patient Handling 02/03/17199902/04/17399 Vann Fall Risk History of Falling 0 [...] of Human Response Clinical Practice Guideline (CPG) 02/04/17 0416 Skin Integrity Impairment, Risk/Actual Skin Integrity Impairment, Risk/Actual: Related Risk Factors age extremes;surgery/procedure documented in this encounter Plan of Treatment Upcoming Encounters Date Type Department Care Team (Latest Contact Info) Description 01/02/2024 1:30 PM EDT Laboratory Appointment Lab [address] [address] 01/02/2024 3:00 PM EDT Office Visit Ne[place] [address] Adam Costa MD [facility] [place] [address] Scheduled Referrals Name Type Priority Associated Diagnoses Orde r Schedule Referral to Cardiac Rehab Outpatient Referral Routine Non-ST elevation myocardial infarction (NSTEMI) Ordered: 02/05/2017 documented as of this encounter Procedures Procedure Name Priority Date/Time Associated Diagnosis Comments 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 02/06/2017 12:00 AM EDT POCT GLUCOSE [...] 02/05/20 17 3:33 AM EDT CARDIAC ENZYMES ([facility]) Routine 02/04/2017 3:33 AM EDT CBC (WITH DIFF) Routine 02/04/2017 3:33 AM EDT TRIGLYCERIDE Routine 02/04/2017 3:33 AM EDT MAGNESIUM Routine 02/04/2017 3:33 AM EDT LDL CHOLESTEROL, DIRECT Routine 02/05/20 3:33 AM EDT HDL/CHOL PROFILE Routine 02/04/2017 3:33 AM EDT HEMOGLOBIN A1C Routine 02/04/2017 3:33 AM EDT HEPATIC FUNCTION PANEL Routine 7 3:33 AM EDT EKG 12-LEAD STAT 02/03/2017 9:16 PM EDT Non-ST elevation myocardial infarction (NSTEMI) CARDIAC ENZYMES ([facility]) STAT 02/03/2017 9:00 PM EDT POCT GLUCOSE Routine 02/03/2017 8:29 PM EDT POCT GLUCOSE Routine 02/03/2017 4:54 PM EDT EKG 12-LEAD Routine 02/03/2017 4:43 PM EDT Non-ST elevation myocardial infarction (NSTEMI) CARDIAC CATHETERIZATION Routine 02/04/20 17 4:26 PM EDT CARDIAC ENZYMES ([facility]) Routine 02/03/2017 3:00 PM EDT TSH Routine [...] 02/04/20 17 9:35 AM EDT CARDIAC ENZYMES ([facility]) STAT 02/03/2017 9:35 AM EDT APTT STAT 02/03/2017 9:35 AM EDT PROTHROMBIN TIME STAT 02/03/2017 9:35 AM EDT CBC (WITH DIFF) Routine 02/03/2017 9:35 AM EDT PRO-BRAIN NATRIURETIC PEPTIDE STAT 02/03/2017 9:35 AM EDT BASIC METABOLIC PANEL STAT 02/03/2017 9:35 AM EDT EKG 12-LEAD STAT 02/03/2017 9:23 AM EDT Non-ST elevation myocardial infarction (NSTEMI) documented in this encounter Results * SCAN DOC: 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 Scanning Provider MEDIA MGR SCAN EXT O RDR/RSLT * POCT Glucose (02/05/2017 7:32 AM EDT) Glucose, POC 160 65 - 199 mg/dL [facility] Comment: Supplemental ranges: <140 mg/dL before meals <180 mg/dL all other times of the day Blood specimen (specimen) 02/05/2017 7:32 AM EDT 02/05/2017 7:32 AM EDT Bayron Oliva MD POINT OF CARE TEST O RDERABLES Performing Organization Address City/[facility]/ZIP Co de Phone Number [facility] [place] [place] [address] * EKG 12 Lead (02/05/2017 7:26 AM EDT) Ventricular rate 54 BPM MUSE SYSTEM Atrial Rate 54 BPM MUSE SYSTEM P-R Interval 214 ms MUSE SYSTEM QRS Duration 96 ms MUSE SYSTEM Q-T Interval 486 ms MUSE SYSTEM QTC Calculated (Bezet) 460 ms MUSE SYSTEM Calculated P [place] 14 degrees MUSE SYSTEM Calculated R [place] 112 degrees MUSE SYSTEM Calculated T [place] 143 degrees MUSE SYSTEM INTERPRETATION Sinus bradycardia with sinus arrhythmia with 1st degree A-V block Right axis deviation Pulmonary disease pattern ST & Marked T wave abnormality consider anterolateral ischemia Prolonged QT Abnormal ECG When compared with ECG of 04-FEB-2017 07:17, No significant change was found Confirmed by MD MORGAN, BACILIO ([id number]) on 02/05/2017 1:39:48 PM MUSE SYSTEM 02/05/2017 7:26 AM EDT 02/05/2017 1:39 PM EDT Shoshana Moyer APRN ECG ORDERABLES Performing Organization Address City/[facility]/ZIP Co de Phone Number MUSE SYSTEM * (ABNORMAL) Differential, Automated (02/05/2017 3:43 AM EDT) Neutrophil % 63.2 % [facility] Neutrophil Absolute 7.21(H) 1.70 - 6.10 x10(3)/mc L [facility] Lymph % 20.7 % [facility] Lymphocytes Abs 2.4 0.9 - 3.2 x10(3)/ L [facility] Monocyte % 11.2 % [facility] Monocyte Abs 1.3(H) 0.3 - 0.9 x10(3)/ L [facility] Eos % 4.1 % [facility] Eosinophils Abs 0.5(H) 0.0 - 0.4 x10(3)/[facility] Basophil % 0.5 % [facility] Baso Absolute 0.1 0.0 - 0.1 x10(3)/[facility] Immature Gran % 0.30 % [facility] Comment: Immature granulocytes(IG's)percentage and absolute count will include metamyelocytes, myelocytes, and promyelocytes. Blood smears from CBCs yielding IG's will be scanned manually for concordance. If this scan disagrees with the automated IG or if promyelocytes are noted, a manual differential will be performed. Immature Gran Absolute 0.03 0.00 - 0.04 x10(3)/[facility] Blood specimen (specimen) 02/05/2017 3:43 AM EDT 02/05/2017 3:52 AM EDT Narrative Resulting Agency Comment Spec In Lab Shoshana Moyer APRN HEMATOLOGY ORDERABLE S [facility] [place] [address] * (ABNORMAL) Hemogram (02/05/2017 3:43 AM EDT) White Blood Cell 11.4(H) 4.0 - 9.5 x10(3)/[facility] Red Blood Cell 4.48(L) 4.58 - 5.54 x10(6)/[facility] Hemoglobin 14.0 13.7 - 16.5 gm/dL [facility] Hematocrit 41.1 40.5 - 48.5 % [facility] Mean Cell Volume 91.7 82.9 - 93.1 fL [facility] Mean Cell Hemoglobin 31.3 27.5 - 32.1 pg [facility] Mean Cell Hemoglobin Concentration 34.1 32.0 - 35.7 gm/dL [facility] Platelet 168 145 - 357 x10(3)/mc L [facility] RDW Standard Deviation 39.9 36.0 - 45.0 fL [facility] RDW coefficient of variation 11.8 11.4 - 13.8 % [facility] Mean Platelet Volume 10.2 7.6 - 12.9 fL [facility] NRBC% auto 0.0 % [facility] NRBC Absolute 0.000 0.000 - 0.000 x10(3)/mc L [facility] Blood specimen (specimen) 02/05/2017 3:43 AM EDT 02/05/2017 3:52 AM EDT Narrative Resulting Agency Comment Spec In Lab Shoshana Moyer APRN HEMATOLOGY ORDERABLE S Performing Organization Address City/State/[facility] Co de Phone Number [facility] [place] [address] * (ABNORMAL) BMP w/fasting Glucose (02/05/2017 3:43 AM EDT) Glucose Fasting 149(H) 65 - 99 mg/dL [facility] Comment: ?Fasting* Glucose Interpretive Criteria [...] of Diabetes Mellitus, Position Statement from the [place] Diabetes [employer]. ??Diabetes Care, Volume 33, Supplement 1, May 2009 Blood Urea Nitrogen 19 10 - 20 mg/dL [facility] Creatinine 1.46 0.80 - 1.50 mg/dL [facility] Comment: Please note that the pediatric reference intervals supplied above were not validated at [facility]. Results from pediatric patients should be interpreted in conjunction to the patient's age, height and muscle mass. Sodium 140 135 - 145 mmol/L [facility] Potassium 4.3 3.5 - 5.0 mmol/L [facility] Comment: Please note: ??Patients with WBC >100,000 may have falsely elevated Potassium levels. ??For accurate Potassium quantification in these patients send serum separator tube (gold top) for subsequent determinations. ??Contact the Clinical Chemistry Laboratory if there are any questions. Chloride 104 98 - 107 mmol/L [facility] Carbon Dioxide 24 22 - 31 mmol/L [facility] Anion Gap 12 5 - 15 mmol/L [facility] Calcium 8.8 8.5 - 10.5 mg/dL [facility] Est Glomerular Filtration Rate 46(L) >=60 [facility] Comment: This estimated GFR (eGFR) [...] the following links into your internet browser. [email or web address] Blood specimen (specimen) 02/05/2017 3:43 AM EDT 02/05/2017 3:52 AM EDT Narrative Resulting Agency Comment Spec In Lab Shoshana Moyer APRN CHEMISTRY ORDERABLES [facility] [place] [address] * Magnesium (02/05/2017 3:43 AM EDT) Magnesium 0.77 0.69 - 1.07 mmol/L [facility] Blood specimen (specimen) 02/05/2017 3:43 AM EDT 02/05/2017 3:52 AM EDT Narrative Resulting Agency Comment Spec In Lab Shoshana Moyer APRN CHEMISTRY ORDERABLES [facility] [place] [address] * POCT Glucose (02/04/2017 8:10 PM EDT) Glucose, POC 189 65 - 199 mg/dL [facility] Comment: Supplemental ranges: <140 mg/dL before meals <180 mg/dL all other times of the day Blood specimen (specimen) 02/04/2017 8:10 PM EDT 02/04/2017 8:10 PM EDT Bayron Oliva MD POINT OF CARE TEST O BHASKAR Performing Organization Address [facility]/ZIP Co de Phone Number [facility] [address] * POCT Glucose (02/04/2017 4:56 PM EDT) Glucose, POC 114 65 - 199 mg/dL [facility] Comment: Supplemental ranges: <140 mg/dL before meals <180 mg/dL all other times of the day Blood specimen (specimen) 02/04/2017 4:56 PM EDT 02/04/2017 4:56 PM EDT Bayron Oliva MD POINT OF CARE TEST O BHASKAR [facility] [place] [address] * POCT Glucose (02/04/2017 11:40 AM EDT) Glucose, POC 157 65 - 199 mg/dL [facility] Comment: Supplemental ranges: <140 mg/dL before meals <180 mg/dL all other times of the day Blood specimen (specimen) 02/04/2017 11:40 AM EDT 02/04/2017 11:40 AM EDT Bayron Oliva MD POINT OF CARE TEST Constance MURO Performing Organization Address [facility] Co de Phone Number [facility] [place] [address] * POCT Glucose (02/04/2017 7:53 AM EDT) Glucose, POC 178 65 - 199 mg/dL [facility] Comment: Supplemental ranges: <140 mg/dL before meals <180 mg/dL all other times of the day Blood specimen (specimen) 02/04/2017 7:53 AM EDT 02/04/2017 7:53 AM EDT Bayron Oliva MD POINT OF CARE TEST Constance MURO Performing Organization Address [facility] de Phone Number [facility] [place] [address] * EKG 12 Lead (02/04/2017 7:17 AM EDT) Ventricular rate 65 BPM MUSE SYSTEM Atrial Rate 65 BPM MUSE SYSTEM P-R Interval 248 ms MUSE SYSTEM QRS Duration 92 ms MUSE SYSTEM Q-T Interval 484 ms MUSE SYSTEM QTC Calculated (Bezet) 503 ms MUSE SYSTEM Calculated P [place] 29 degrees MUSE SYSTEM Calculated R [place] 99 degrees MUSE SYSTEM Calculated T [place] 140 degrees MUSE SYSTEM INTERPRETATION Sinus rhythm [...] interpretation Confirmed by fellow MD Katherine, Truong ([id number]) on 02/04/2017 9:02:44 AM Confirmed by MD RAUL, JOAN ([id number]) on 02/04/2017 10:47:37 AM MUSE SYSTEM 02/04/2017 7:17 AM EDT 02/04/2017 10:47 AM EDT Shoshana Moyer APRN ECG ORDERABLES MUSE SYSTEM * (ABNORMAL) Cardiac Enzymes (02/04/2017 3:33 AM EDT) Troponin-T 0.95(H) 0.00 - 0.00 ng/mL [facility] Comment: The 99th percentile for Troponin T is less than 0.01 ng/mL, any detectable cTnT concentration using this assay should be considered elevated. According to the third universal definition of myocardial infarction the following criteria with a clinical presentation consistent with acute myocardial ischemia meets the diagnosis for a myocardial infarction (OR). Detection of a rise and/or fall of cTnT, with at least one value greater than the 99th percentile (> or = 0.01) and with at least one of the following ?? Symptoms of ischemia ?? New or presumed new significant QY-vjuldlt-X wave (ST-T) changes or new left bundle [...] additional sample may be indicated. Reference: Third Thornton Definition of Myocardial Infarction. Journal of the [place] College of [employer] 2012;60:1581-98 Creatine Kinase 421(H) 0 - 200 unit/L [facility] Blood specimen (specimen) Venous Draw / Unknown 02/04/2017 3:33 AM EDT 02/04/2017 3:50 AM EDT Narrative Resulting Agency Comment Spec In Lab Shoshana Moyer APRN CHEMISTRY ORDERABLES Performing Organization Address City/[facility]/ZIP Co de Phone Number [facility] [place] [address] * (ABNORMAL) Differential, Automated (02/04/2017 3:33 AM EDT) Neutrophil % 70.9 % [facility] Neutrophil Absolute 10.32(H) 1.70 - 6.10 x10(3)/mc L [facility] Lymph % 17.5 % [facility] Lymphocytes Abs 2.6 0.9 - 3.2 x10(3)/ L [facility] Monocyte % 8.8 % [facility] Monocyte Abs 1.3(H) 0.3 - 0.9 x10(3)/ L [facility] Eos % 2.0 % [facility] Eosinophils Abs 0.3 0.0 - 0.4 x10(3)/[facility] Basophil % 0.4 % [facility] Baso Absolute 0.1 0.0 - 0.1 x10(3)/ L [facility] Immature Gran % 0.40 % [facility] Comment: Immature granulocytes(IG's)percentage and absolute count will include metamyelocytes, myelocytes, and promyelocytes. Blood smears from CBCs yielding IG's will be scanned manually for concordance. If this scan disagrees with the automated IG or if promyelocytes are noted, a manual differential will be performed. Immature Gran Absolute 0.06(H) 0.00 - 0.04 x10(3)/mc L [facility] Blood specimen (specimen) 02/04/2017 3:33 AM EDT 02/04/2017 3:50 AM EDT Narrative Resulting Agency Comment Spec In Lab Shoshana Moyer APRN HEMATOLOGY ORDERABLE S Performing Organization Address City/[facility]/ZIP Co de Phone Number [facility] [place] [address] * (ABNORMAL) Hemogram (02/04/2017 3:33 AM EDT) White Blood Cell 14.6(H) 4.0 - 9.5 x10(3)/[facility] LABORATORY Red Blood Cell 4.65 4.58 - 5.54 x10(6)/[facility]ORATORY Hemoglobin 14.6 13.7 - 16.5 gm/dL [facility] Hematocrit 41.8 40.5 - 48.5 % [facility] Mean Cell Volume 89.9 82.9 - 93.1 fL [facility] Mean Cell Hemoglobin 31.4 27.5 - 32.1 pg [facility] Mean Cell Hemoglobin Concentration 34.9 32.0 - 35.7 gm/dL [facility] Platelet 192 145 - 357 x10(3)/[facility] LABORATORY RDW Standard Deviation 38.6 36.0 - 45.0 [facility] LABORATORY RDW coefficient of variation 11.8 11.4 - 13.8 % [facility] Mean Platelet Volume 10.1 7.6 - 12.9 fL [facility] NRBC% auto 0.0 % [facility] NRBC Absolute 0.000 0.000 - 0.000 x10(3)/[facility] Blood specimen (specimen) 02/04/2017 3:33 AM EDT 02/04/2017 3:50 AM EDT Narrative Resulting Agency Comment Spec In Lab Shoshana Moyer APRN HEMATOLOGY ORDERABLE S [facility] [place] [address] * (ABNORMAL) BMP w/fasting Glucose (02/04/2017 3:33 AM EDT) Glucose Fasting 138(H) 65 - 99 mg/dL [facility] Comment: ?Fasting* Glucose Interpretive Criteria [...] of Diabetes Mellitus, Position Statement from the [place] [employer]. ??Diabetes Care, Volume 33, Supplement 1, May 2009 Blood Urea Nitrogen 15 10 - 20 mg/dL [facility] Creatinine 1.34 0.80 - 1.50 mg/dL [facility] Comment: Please note that the pediatric reference intervals supplied above were not validated at [facility]. Results from pediatric patients should be interpreted in conjunction to the patient's age, height and muscle mass. Sodium 139 135 - 145 mmol/L [facility] Potassium 4.2 3.5 - 5.0 mmol/L [facility] Comment: Please note: ??Patients with WBC >100,000 may have falsely elevated Potassium levels. ??For accurate Potassium quantification in these patients send serum separator tube (gold top) for subsequent determinations. ??Contact the Clinical Chemistry Laboratory if there are any questions. Chloride 102 98 - 107 mmol/L [facility] Carbon Dioxide 23 22 - 31 mmol/L [facility] Anion Gap 14 5 - 15 mmol/L [facility] Calcium 8.7 8.5 - 10.5 mg/dL [facility] Est Glomerular Filtration Rate 51(L) >=60 [facility] Comment: This estimated GFR (eGFR) [...] the following links into your internet browser. [email or web address] Blood specimen (specimen) 02/04/2017 3:33 AM EDT 02/04/2017 3:50 AM EDT Narrative Resulting Agency Comment Spec In Lab Shoshana Moyer DEVELOPMENT SPEC CHEMISTRY ORDERABLES Performing Organization Address [facility] de Phone Number [facility] [place] [address] * Magnesium (02/04/2017 3:33 AM EDT) Pathologist [facility] Magnesium 0.77 0.69 - 1.07 mmol/L [facility] Blood specimen (specimen) 02/04/2017 3:33 AM EDT 02/04/2017 3:50 AM EDT Narrative Resulting Agency Comment Spec In Lab Shoshana Moyer DEVELOPMENT SPEC CHEMISTRY ORDERABLES Performing Organization Address [facility] de Phone Number [facility] [place] [address] * (ABNORMAL) Hepatic Function Panel (02/04/2017 3:33 AM EDT) Protein, Total 6.1 6.1 - 8.0 gm/dL [facility] Albumin 3.7 3.2 - 5.2 gm/dL [facility] Aspartate Aminotransferase 57(H) 0 - 39 unit/L [facility] Alanine Aminotransferase 34 0 - 55 unit/L [facility] Alkaline Phosphatase 71 40 - 120 unit/L [facility] Bilirubin, Total 0.7 0.2 - 1.3 mg/dL [facility] Bilirubin, Direct 0.1 0.0 - 0.3 mg/dL [facility] Blood specimen (specimen) 02/04/2017 3:33 AM EDT 02/04/2017 3:50 AM EDT Narrative Resulting Agency Comment Spec In Lab Shoshana Moyer DEVELOPMENT SPEC CHEMISTRY ORDERABLES Performing Organization Address City/[facility]/ZIP Co de Phone Number [facility] [place] [address] * Triglyceride (02/04/2017 3:33 AM EDT) Triglyceride 171 <=199 mg/dL [facility] Blood specimen (specimen) 02/04/2017 3:33 AM EDT 02/04/2017 3:50 AM EDT Narrative Resulting Agency Comment Spec In Lab Shoshana Moyer DEVELOPMENT SPEC CHEMISTRY ORDERABLES Performing Organization Address [facility] Co de Phone Number [facility] [place] [address] * (ABNORMAL) HDL/Cholesterol Profile (02/04/2017 3:33 AM EDT) Cholesterol, Total 106 <=239 mg/dL [facility] HDL Cholesterol 37(L) >=40 mg/dL [facility] Cholesterol/HDL Ratio 2.9 ratio [facility] Chol/HDL Interpretation See Note [facility] Comment: Lipid management should be guided by a patient? s ASCVD risk, goals and preferences. ACC/AHA Guidelines recommend high intensity statin if clinical ASCVD or LDL greater than or equal to 190 mg/dL. http://[employer].com/IDT-IEM-Qkcochwif Measure LDL if Total Cholesterol minus HDL Cholesterol is greater than 220 mg/dL. Adults aged 40-75 with LDL 70-189 mg/dL should have their 10 year ASCVD risk estimated with the ACC/AHA ASCVD risk hvac estimator http://tools.acc.org/XDBLJ-Meio-Utouxxzzb/ Statin should be discussed if risk greater [...] Agency Comment Spec In Lab Shoshana Moyer [employer] CHEMISTRY ORDERABLES Performing Organization Address City/[facility]/ZIP Co de Phone Number [facility] [place] [address] * LDL Cholesterol, Direct (02/04/2017 3:33 AM EDT) LDL Cholesterol, Direct 47 <=190 mg/dL [facility] Blood specimen (specimen) 02/04/2017 3:33 AM EDT 02/04/2017 3:50 AM EDT Narrative Resulting Agency Comment Spec In Lab Shoshana Moyer [employer] CHEMISTRY ORDERABLES Performing Organization Address [facility] Co de Phone Number [facility] [place] [address] * (ABNORMAL) Hemoglobin A1c (02/04/2017 3:33 AM EDT) Hemoglobin A1c 6.2(H) 4.3 - 5.6 % [facility] Comment: Reference Range: 4.3 - [...] Mellitus, Diabetes Care 2013; 36: Suppl. 1, E17-07 Estimated Average Glucose See note mg/dL [facility] Comment: Estimated Average Glucose not [...] into estimated average glucose values. ??Diabetes Care 2008:31(8):3021-8144. Blood specimen (specimen) 02/04/2017 3:33 AM EDT 02/04/2017 3:50 AM EDT Narrative Resulting Agency Comment Spec In Lab Shoshana Moyer APRN CHEMISTRY ORDERABLES [facility] [place] [address] * EKG 12 Lead (02/03/2017 9:16 PM EDT) Ventricular rate 77 BPM MUSE SYSTEM Atrial Rate 77 BPM MUSE SYSTEM P-R Interval 222 ms MUSE SYSTEM QRS Duration 90 ms MUSE SYSTEM Q-T Interval 458 ms MUSE SYSTEM QTC Calculated (Bezet) 518 ms MUSE SYSTEM Calculated P [place] 29 degrees MUSE SYSTEM Calculated R [place] 98 degrees MUSE SYSTEM Calculated T [place] 118 degrees MUSE SYSTEM INTERPRETATION Sinus rhythm [...] abnormality in Lateral leads Confirmed by MD GRACE JOHN ([id number]) on 02/04/2017 9:17:42 PM MUSE SYSTEM 02/03/2017 9:16 PM EDT 02/04/2017 9:17 PM EDT Bayron Oliva MD ECG ORDERABLES Performing Organization Address City/[facility]/ZIP Co de Phone Number MUSE SYSTEM * (ABNORMAL) Cardiac Enzymes (02/03/2017 9:00 PM EDT) Troponin-T 0.71(H) 0.00 - 0.00 ng/mL [facility] Comment: The 99th percentile for Troponin T is less than 0.01 ng/mL, any detectable cTnT concentration using this assay should be considered elevated. According to the third universal definition of myocardial infarction the following criteria with a clinical presentation consistent with acute myocardial ischemia meets the diagnosis for a myocardial infarction (OR). Detection of a rise and/or fall of cTnT, with at least one value greater than the 99th percentile (> or = 0.01) and with at least one of the following ?? Symptoms of ischemia ?? New or presumed new significant QQ-kxfkkma-Y wave (ST-T) changes or new left bundle [...] additional sample may be indicated. Reference: Third Thornton Definition of Myocardial Infarction. Journal of the [place] College [employer] 2012;60:1581-98 Creatine Kinase 329(H) 0 - 200 unit/L [facility] Blood specimen (specimen) 02/03/2017 9:00 PM EDT 02/03/2017 9:05 PM EDT Narrative Resulting Agency Comment Spec In Lab Shoshana Moyer APRN CHEMISTRY ORDERABLES Performing Organization Address City/[facility]/ZIP Co de Phone Number [facility] [place] [address] * POCT Glucose (02/03/2017 8:29 PM EDT) Glucose, POC 197 65 - 199 mg/dL [facility] Comment: Supplemental ranges: <140 mg/dL before meals <180 mg/dL all other times of the day Blood specimen (specimen) 02/03/2017 8:29 PM EDT 02/03/2017 8:29 PM EDT Bayron Oliva MD POINT OF CARE TEST O BHASKAR Performing Organization Address [facility] Co de Phone Number [facility] [place] [address] * POCT Glucose (02/03/2017 4:54 PM EDT) Glucose, POC 144 65 - 199 mg/dL [facility] Comment: Supplemental ranges: <140 mg/dL before meals <180 mg/dL all other times of the day Blood specimen (specimen) 02/03/2017 4:54 PM EDT 02/03/2017 4:54 PM EDT Bayron Oliva MD POINT OF CARE TEST O BHASKAR Performing Organization Address [facility] Co de Phone Number [facility] [place] [address] * EKG 12 Lead (02/03/2017 4:43 PM EDT) Ventricular rate 81 BPM MUSE SYSTEM Atrial Rate 81 BPM MUSE SYSTEM P-R Interval 226 ms MUSE SYSTEM QRS Duration 96 ms MUSE SYSTEM Q-T Interval 420 ms MUSE SYSTEM QTC Calculated (Bezet) 487 ms MUSE SYSTEM Calculated P [place] 30 degrees MUSE SYSTEM Calculated R [place] -20 degrees MUSE SYSTEM Calculated T [place] -19 degrees MUSE SYSTEM INTERPRETATION Sinus rhythm [...] PM EDT Bayron Oliva MD ECG ORDERABLES MUSE SYSTEM * CARDIAC CATHETERIZATION (02/03/2017 4:26 PM EDT) Anatomical Region Laterality Modality Other Narrative 02/03/2017 4:43 PM EDT ?[facility] ? Cardiac Catheterization/Intervention Report ? Patient Name: Cesar Thompson D. ? Procedure Date: 02/03/2017 ? A #: [id number] ? Primary Physician: Lydia Harden ? Case #: [id number] ? File Name: [id number] ? Catheterization Order Number: [id number] ? [facility] ? Final Report [place], [place] ? Patient Name: ? Cesar Thompson ?ID#: ?[id number] ? : ?1935 ? Procedure Date: ? February 03, 2017 ?Case #: ? [id number] ? Room: ? 6 ? Case Physician: [...] patient presented with: non-STEMI (w/i 7 days). Citizen Of [place] ?Cardiovascular Society angina class was IV. This [...] ? A premounted 3.50 x 23 mm Leeroy Leon (MINNIE) was deployed ? 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 ?Recommend continuing clopidogrel 75 mg PO daily [...] Procedure Note Lydia Harden MD - 08/08/2017 [facility] Cardiac Catheterization/Intervention Report Patient Name: Cesar Thompson Procedure Date: 02/03/2017 A #: [id number] Primary Physician: Lydia Harden Case #: [id number] File Name: [id number] Catheterization Order Number: [id number] [facility] FinalReport [place], [place] Patient Name: Cesar Thompson ID#:[id number] :1935 Procedure Date: February 03, 2017 Case [...] patient presented with: non-STEMI (w/i 7 days). Citizen Of [place] Cardiovascular Society angina class was IV. This [...] The lesion was predilated with a 2.50mm [id number] MM balloon with a maximum inflation pressure [...] dose administered prior to arrival in the slab depiler operator. Recommend continuing clopidogrel 75 mg PO daily [...] EDT) Troponin-T 0.48(H) 0.00 - 0.00 ng/mL [facility] Comment: The 99th percentile for Troponin T is less than 0.01 ng/mL, any detectable cTnT concentration using this assay should be considered elevated. According to the third universal definition of myocardial infarction the following criteria with a clinical presentation consistent with acute myocardial ischemia meets the diagnosis for a myocardial infarction (OR). Detection of a rise and/or fall of cTnT, with at least one value greater than the 99th percentile (> or = 0.01) and with at least one of the following ?? Symptoms of ischemia ?? New or presumed new significant NO-fyfjxni-V wave (ST-T) changes or new left bundle [...] additional sample may be indicated. Reference: Third Thornton Definition of Myocardial Infarction. Journal of the [place] College [employer]iology 2012;60:1581-98 Creatine Kinase 305(H) 0 - 200 unit/L [facility] Blood specimen (specimen) 02/03/2017 3:00 PM EDT 02/03/2017 3:22 PM EDT Narrative Resulting Agency Comment Spec In Lab Shoshana Moyer APRN CHEMISTRY ORDERABLES [facility] [place] [address] * TSH (02/03/2017 3:00 PM EDT) Thyroid Stimulating Hormone 1.18 0.27 - 4.20 mlU/ML [facility] Blood specimen (specimen) 02/03/2017 3:00 PM EDT 02/03/2017 3:22 PM EDT Narrative Resulting Agency Comment Spec In Lab Inder Medley MD CHEMISTRY ORDERABLES [facility] [place] [address] * XR Chest PA & Lateral (Generic) [...] ?EDD Hatch ?(Age): 1935(81y) Med Rec#: ? [id number] ?Sex: ?M ? Site Loc: ? [facility] ?Ht / Wt: ??175(cm)/85(kg) Pt. Loc: ?Adult Floor ? BSA: ?2.01 Study Date: ?? 02/03/2017 ?Pt. Type: Inpatient Tape: ? Referring: GRANTROBERTJ Referring: nIder Medley Reading: Mason Beth ([id number]) Trial Mgr: Sonia Marcila Diagnosis: *ICD-10-PCS Non-ST elevation (NSTEMI) myocardial infarction [...] ? Mid-Inferior ?Hypokinetic ? Mid-Inferoseptal ?Akinetic ? Thurman-Septal ? Akinetic ? Thurman-Anterior ? Akinetic ? Thurman-Lateral ?Akinetic ? Thurman-Inferior ? Akinetic ? Thurman-Tip ?Akinetic ? This report has been electronically signed by: Mason Beth MD ? 02/03/2017 13:42:39 Images reviewed and interpretation verified [facility] Cardiac Ultrasound Laboratory Procedure Note Mason Beth MD - 02/03/2017 Procedure: Transthoracic Echocardiogram Patient: EDD Hatch (Age): 1935(81y) Med Rec#: [id number] Sex: M Site Loc: [facility] Ht / Wt: 175(cm)/85(kg) Pt. Loc: Adult Floor BSA: 2.01 Study Date: 02/03/2017 Pt. Type: Inpatient Tape: Referring: CRISTAL Referring: Inder Medley Reading: Mason Beth ([id number]) Trial Mgr: Sonia Marcial Diagnosis: *ICD-10-PCS Non-ST elevation (NSTEMI) [...] Hypokinetic Mid-Posterolateral Hypokinetic Mid-Inferior Hypokinetic Mid-Inferoseptal Akinetic Thurman-Septal Akinetic Thurman-Anterior Akinetic Thurman-Lateral Akinetic Thurman-Inferior Akinetic Thurman-Tip Akinetic This report has been electronically signed by: Mason Beth MD 02/03/2017 13:42:39 Images reviewed and interpretation verified [facility] Cardiac Ultrasound Laboratory Inder Medley MD ECHO ORDERABLES * POCT Glucose (02/03/2017 11:50 AM EDT) Glucose, POC 138 65 - 199 mg/dL [facility] Comment: Supplemental ranges: <140 mg/dL before meals <180 mg/dL all other times of the day Blood specimen (specimen) 02/03/2017 11:50 AM EDT 02/03/2017 11:50 AM EDT Bayron Oliva MD POINT OF CARE TEST O BHASKAR Performing Organization Address [facility] Co de Phone Number [facility] [place] [address] * (ABNORMAL) APTT (02/03/2017 11:50 AM EDT) [facility] Partial Thromboplastin Time 54(H) 25 - 35 sec [facility] Comment: The recommended therapeutic range for full dose, unfractionated heparin at [facility] is 80 ? 114 seconds. The use of the anti-Xa (heparin) level rather than the PTT is recommended for monitoring anticoagulation intensity in critically ill patients receiving unfractionated heparin by continuous IV infusion. Blood specimen (specimen) 02/03/2017 11:50 AM EDT 02/03/2017 12:05 PM EDT Narrative Resulting Agency Comment Spec In Lab Shoshana Moyer APRN HEMATOLOGY ORDERABLE S Performing Organization Address [facility] Phone Number [facility] [place] [address] * POCT Glucose (02/03/2017 10:13 AM EDT) [facility] Glucose, POC 148 65 - 199 mg/dL [facility] Comment: Supplemental ranges: <140 mg/dL before meals <180 mg/dL all other times of the day Blood specimen (specimen) 02/03/2017 10:13 AM EDT 02/03/2017 10:13 AM EDT Inder Medley MD POINT OF CARE TEST O BHASKAR Performing Organization Address [facility] Co de Phone Number [facility] [place] [address] * (ABNORMAL) Differential, Automated (02/03/2017 9:35 AM EDT) [facility] Neutrophil % 68.5 % [facility] Neutrophil Absolute 6.52(H) 1.70 - 6.10 x10(3)/[facility] Lymph % 20.1 % [facility] Lymphocytes Abs 1.9 0.9 - 3.2 x10(3)/[facility] Monocyte % 7.5 % [facility] Monocyte Abs 0.7 0.3 - 0.9 x10(3)/[facility] Eos % 2.9 % [facility] Eosinophils Abs 0.3 0.0 - 0.4 x10(3)/[facility] Basophil % 0.7 % [facility] Baso Absolute 0.1 0.0 - 0.1 x10(3)/[facility] Immature Gran % 0.30 % [facility] Comment: Immature granulocytes(IG's)percentage and absolute count will include metamyelocytes, myelocytes, and promyelocytes. Blood smears from CBCs yielding IG's will be scanned manually for concordance. If this scan disagrees with the automated IG or if promyelocytes are noted, a manual differential will be performed. Immature Gran Absolute 0.03 0.00 - 0.04 x10(3)/[facility] Blood specimen (specimen) 02/03/2017 9:35 AM EDT 02/03/2017 9:40 AM EDT Narrative Resulting Agency Comment Spec In Lab Shoshana Moyer APRN HEMATOLOGY ORDERABLE S [facility] [place] [address] * Hemogram (02/03/2017 9:35 AM EDT) White Blood Cell 9.5 4.0 - 9.5 x10(3)/[facility] Red Blood Cell 4.99 4.58 - 5.54 x10(6)/[facility] Hemoglobin 15.3 13.7 - 16.5 gm/dL [facility] Hematocrit 44.5 40.5 - 48.5 % [facility] Mean Cell Volume 89.2 82.9 - 93.1 fL [facility] Mean Cell Hemoglobin 30.7 27.5 - 32.1 pg [facility] Mean Cell Hemoglobin Concentration 34.4 32.0 - 35.7 gm/dL [facility] Platelet 204 145 - 357 x10(3)/[facility] RDW Standard Deviation 37.7 36.0 - 45.0 fL [facility] RDW coefficient of variation 11.8 11.4 - 13.8 % [facility] Mean Platelet Volume 10.3 7.6 - 12.9 fL [facility] NRBC% auto 0.0 % [facility] NRBC Absolute 0.000 0.000 - 0.000 x10(3)/[facility] Blood specimen (specimen) 02/03/2017 9:35 AM EDT 02/03/2017 9:40 AM EDT Narrative Resulting Agency Comment Spec In Lab Shoshana Moyer APRN HEMATOLOGY ORDERABLE S [facility] [place] [address] * (ABNORMAL) Cardiac Enzymes (02/03/2017 9:35 AM EDT) Troponin-T 0.31(H) 0.00 - 0.00 ng/mL [facility] Comment: The 99th percentile for Troponin T is less than 0.01 ng/mL, any detectable cTnT concentration using this assay should be considered elevated. According to the third universal definition of myocardial infarction the following criteria with a clinical presentation consistent with acute myocardial ischemia meets the diagnosis for a myocardial infarction (OR). Detection of a rise and/or fall of cTnT, with at least one value greater than the 99th percentile (> or = 0.01) and with at least one of the following ?? Symptoms of ischemia ?? New or presumed new significant PL-oxpdpyg-J wave (ST-T) changes or new left bundle [...] additional sample may be indicated. Reference: Third Thornton Definition of Myocardial Infarction. Journal of the [place] College [employer]iology 2012;60:1581-98 Creatine Kinase 264(H) 0 - 200 unit/L [facility] Blood specimen (specimen) 02/03/2017 9:35 AM EDT 02/03/2017 9:40 AM EDT Narrative Resulting Agency Comment Spec In Lab Shoshana Moyer APRN CHEMISTRY ORDERABLES Performing Organization Address [facility]/ZIP Co de Phone Number [facility] [place] [address] * (ABNORMAL) pro-Brain Natriuretic Peptide (02/03/2017 9:35 AM EDT) NT-proBNP 1,411(H) <=450 pg/mL [facility] Blood specimen (specimen) 02/03/2017 9:35 AM EDT 02/03/2017 9:40 AM EDT Narrative Resulting Agency Comment Spec In Lab Shoshana Moyer APRN CHEMISTRY ORDERABLES Performing Organization Address City/[facility]/ZIP Co de Phone Number [facility] [place] [address] * (ABNORMAL) APTT (02/03/2017 9:35 AM EDT) Partial Thromboplastin Time 64(H) 25 - 35 sec [facility] Comment: The recommended therapeutic range for full dose, unfractionated heparin at [facility] is 80 ? 114 seconds. The use of the anti-Xa (heparin) level rather than the PTT is recommended for monitoring anticoagulation intensity in critically ill patients receiving unfractionated heparin by continuous IV infusion. Blood specimen (specimen) 02/03/2017 9:35 AM EDT 02/03/2017 9:40 AM EDT Narrative Resulting Agency Comment Spec In Lab Shoshana Moyer APRN HEMATOLOGY ORDERABLE S Performing Organization Address [facility]/ZIP Co de Phone Number [facility] [place] [address] * Prothrombin Time (02/03/2017 9:35 AM EDT) Prothrombin Time 14.1 12.0 - 15.0 sec [facility] Comment: An INR <2.0 indicates adequate [...] International Normalization Ratio 1.0 0.9 - 1.1 [facility] Blood specimen (specimen) 02/03/2017 9:35 AM EDT 02/03/2017 9:40 AM EDT Narrative Resulting Agency Comment Spec In Lab Shoshana Moyer APRN HEMATOLOGY ORDERABLE S Performing Organization Address [facility] Co de Phone Number [facility] [place] [address] * (ABNORMAL) Basic Metabolic Panel (non-fasting) (02/03/2017 9:35 AM EDT) Glucose 159 65 - 199 mg/dL [facility] Comment:Diabetes: >=200 mg/d L plus symptoms Blood Urea Nitrogen 15 10 - 20 mg/dL [facility] Creatinine 1.19 0.80 - 1.50 mg/dL [facility] Comment: Please note that the pediatric reference intervals supplied above were not validated at [facility] Results from pediatric patients should be interpreted in conjunction to the patient's age, height and muscle mass. Sodium 140 135 - 145 mmol/L [facility] Potassium 4.0 3.5 - 5.0 mmol/L [facility] Comment: Please note: ??Patients with WBC >100,000 may have falsely elevated Potassium levels. ??For accurate Potassium quantification in these patients send serum separator tube (gold top) for subsequent determinations. ??Contact the Clinical Chemistry Laboratory if there are any questions. Chloride 103 98 - 107 mmol/L [facility] Carbon Dioxide 22 22 - 31 mmol/L [facility] Anion Gap 15 5 - 15 mmol/L [facility] Calcium 9.3 8.5 - 10.5 mg/dL [facility] Est Glomerular Filtration Rate 59(L) >=60 [facility] Comment: This estimated GFR (eGFR) [...] the following links into your internet browser. [email or web address] Blood specimen (specimen) 02/03/2017 9:35 AM EDT 02/03/2017 9:40 AM EDT Narrative Resulting Agency Comment Spec In Lab Shoshana Moyer APRN CHEMISTRY ORDERABLES [facility] [place] [address] * EKG 12 Lead (02/03/2017 9:23 AM EDT) Ventricular rate 71 BPM MUSE SYSTEM Atrial Rate 71 BPM MUSE SYSTEM P-R Interval 236 ms MUSE SYSTEM QRS Duration 96 ms MUSE SYSTEM Q-T Interval 448 ms MUSE SYSTEM QTC Calculated (Bezet) 486 ms MUSE SYSTEM Calculated P [place] -5 degrees MUSE SYSTEM Calculated R [place] -17 degrees MUSE SYSTEM Calculated T [place] 79 degrees MUSE SYSTEM INTERPRETATION Sinus rhythm with 1st degree A-V block Inferior infarct , age undetermined T wave abnormality, consider anterolateral ischemia Abnormal ECG When compared with ECG of 12-APR-2011 07:31, T wave inversion now evident in Anterolateral leads Confirmed by MD Elsie, Rosendo Walker ([id number]) on 02/04/2017 9:15:41 AM MUSE SYSTEM 02/03/2017 9:23 AM EDT 02/04/2017 9:15 AM EDT Shoshana J King RADHA ECG ORDERABLES MUSE SYSTEM documented in this encounter Visit Diagnoses Not on filedocumented in this encounter Admitting Diagnoses Diagnosis NSTEMI [...] duration of the active insulin., Routine fentaNYL 50 mcg/mL multi-dose injection ONCE PRN, Starting on Fri02/03/17 at 1533, Until Fri02/03/17 at 1623, Cath (Intra-Procedure), Routine Given 02/03/2017 4:03 PM EDT 25 mcg Given 02/03/2017 3:57 PM EDT 25 mcg Given 02/03/2017 3:33 PM EDT 25 mcg glucagon (human recombinant) [...] of the active insulin., Routine heparin (porcine) injection ONCE PRN, Starting on Fri02/03/17 at 1543, Until Fri02/03/17 at 1623, Cath (Intra-Procedure), Routine Given 02/03/2017 3:43 PM EDT 6,000 Units insulin lispro (humaLOG) VIAL injection 1-4 Units [...] Given 02/04/2017 8:07 AM EDT 2 Units iohexol (OMNIPAQUE) 350 mg/mL solution ONCE PRN, Starting on Fri02/03/17 at 1622, Until Fri02/03/17 at 1835, Cath (Intra-Procedure), Routine Given 02/03/2017 4:22 PM EDT 105 mLs lisinopril (PRINIVIL;ZESTRIL) tablet 20 mg 20 mg, Oral, DAILY, First dose on Fri02/04/17 at 1245, Until Discontinued, Routine Given 02/05/2017 8:08 AM EDT 20 mg Given 02/04/2017 12:36 PM EDT 20 mg meTOPROLOL succinate (TOPROL-XL) XL tablet 100 mg 100 mg, Oral, DAILY, First dose on Fri02/05/17 at 1000, Until Discontinued, DO NOT CRUSH OR OPEN, Routine Given 02/05/2017 10:00 AM EDT 100 mg midazolam (PF) (VERSED) 1 mg/mL multi-dose injection ONCE PRN, Starting on Fri02/03/17 at 1534, Until Fri02/03/17 at 1835, Cath (Intra-Procedure), Routine Given 02/03/2017 3:34 PM EDT 1 mg morphine 2 mg/mL carpuject 2 mg 2 mg, Intravenous, EVERY 4 HOURS PRN, Starting on Fri02/03/17 at 2113, Until Fri02/05/17 at 1344, Pain, Routine Given 02/03/2017 9:22 PM EDT 2 mg niCARdipine (CARDENE) in sodium chloride 0.9% injection ONCE PRN, Starting on Fri02/03/17 at 1602, Until Fri02/03/17 at 1836, Intra-Operative (Intra-Procedure), Routine Given 02/03/2017 4:11 PM EDT 200 mcg Given 02/03/2017 4:02 PM EDT 200 mcg nitroGLYcerin (NITROSTAT) SL tablet 0.4 mg 0.4 mg, Sublingual, EVERY 5 MIN PRN, Chest pain, Starting on Fri02/03/17 at 2055, Until Fri02/05/17 at 1344, SL nitroglycerin may be repeated every 5 minutes as needed up to 3 doses Given 02/03/2017 9:01 PM EDT 0.4 mg nitroGLYcerin 100 mcg/mL intracoronary dilution ONCE PRN, Starting on Fri02/03/17 at 1534, Until Fri02/03/17 at 1835, Cath (Intra-Procedure), Routine Given 02/03/2017 3:59 PM EDT 200 mcg Given 02/03/2017 3:34 PM EDT 200 mcg tamsulosin (FLOMAX) ER capsule 0.4 mg 0.4 [...] Routine 1152 (Not Given - Provider: Sydnie Lagunas RN - Reason: Order parameters not met)1514 [...] minute, Routine 1152 (Given - Provider: Sydnie Lagunas RN)1514 (JUL Hold - Provider: Admin Adt [...] Lexi Mancuso RN)0633 (Given - Provider: Lexi Mancuso, MARILYN)1236 (Given - Provider: Angie Escobar RN)1718 (Given [...] OPEN, Routine 1402 (Given - Provider: Sydnie Lagunas, MARILYN)1514 (JUL Hold - Provider: Admin Adt - Reason: Transfer to a Procedural area)1836 (JUL Unhold - Provider: Admin Adt) 0807 (Given - Provider: Angie Escobar RN) 0808 (Given - Provider: Angie Escobar RN) Continuous Medication Order 02/03/2017 02/04/2017 02/05/2017 heparin [...] UA) 0850 (New Bag - Provider: Sydnie B Kohut, RN)1251 (Rate/Dose Change - Provider: Sydnie Lagunas RN)1500 (Stopped - Provider: Sydnie Lagunas RN)1514 (JUL Hold - Provider: Admin Adt [...] hours., Routine 2009 (Given - Provider: Lexi Mancuso RN) 47 (Given - Provider: Lexi Mancuso RN) dextrose 50% IV syringe 25-50 mL(Linked Group [...] , Routine 1252 (Given - Provider: Sydnie Lagunas RN)1514 (JUL Hold - Provider: Admin Adt [...] Unit), Routine 1644 (Given - Provider: Essie Mnotana RN) nitroGLYcerin (NITROSTAT) SL tablet 0.4 mg [...] Madhu Forman MD)1559 (Given - Provider: Madhu Fomran MD) Linked Groups Order Group 1: POCT [...] Routine documented in this encounter Care Teams Market Development Specialist Relationship Specialty Start Date End Date Arely Moise MD [address] [place] [address] PCP - General Family Medicine 09/16/16 documented as of this encounter
--- OUTSIDE RECORDS SUMMARY | 2023-12-21 07:53 | XMS_ITS | Encounter Summary ---
Author Organization [facility] [place] [address] Care Team Providers Care Kaiwhakahaere Name Role Phone Rolando Moise MD Primary Care Provider [phone] Reason for Visit * Auth/Cert Specialty Diagnoses / Procedures Referred By Contac t Referred To Contact Diagnoses NSTEMI (non-ST elevated myocardial infarction) NSTEMI ?CAD Procedures CARDIAC CATHETERIZATION Referral ID Status Reason Start Date Expiration Date Visits Re quested Visits Authorized [id number] 1 1 Encounter Details Date Type Department Care Team (Latest Contact Info) Description 02/03/2017 11:45 AM EDT - 02/03/2017 11:59 PM EDT Hospital Encounter Non-Invasive [place] [phone] Discharge Disposition: Home Social History Tobacco Use [...] 0.4 mg by mouth daily. atorvastatin (LIPITOR) 40 mg Tablet Take 1 tablet by mouth daily. 30 tablet 02/05/2017 02/05/2017 clopidogrel (PLAVIX) 75 mg Tablet Take 1 tablet by mouth daily. 30 tablet 1 02/06/2017 02/05/2017 meTOPROLOL succinate (TOPROL-XL) 100 mg Tablet Sustained Release 24 hr Take 1 tablet by mouth daily. 30 tablet 02/05/2017 02/05/2017 nitroGLYcerin (NITROSTAT) 0.4 mg Tablet, Sublingual Place 1 tablet under the tongue every 5 minutes as needed for Chest pain. 25 tablet 3 02/05/2017 02/05/2017 clopidogrel (PLAVIX) 75 mg Tablet Take 1 [...] Take 20 mg by mouth daily. 11/09/2020 verapamil (CALAN) 120 mg Tablet Take 120 mg by mouth 3 times daily. 02/05/2017 atorvastatin (LIPITOR) 20 mg Tablet Take 20 mg by mouth daily. 02/05/2017 Victor-3 Fatty Acids-Vitamin E (FISH OIL) 1,000 mg Cap Take by mouth daily. Reported on 09/16/2016 02/05/2017 metFORMIN (GLUCOPHAGE) 500 mg tablet Take 500 mg by mouth 2 times daily (with meals). 11/09/2020 documented as of this encounter Plan of Treatment Upcoming Encounters Date Type Department Care Team (Latest Contact Info) Description 01/02/2024 1:30 PM EDT Laboratory Appointment Lab [address] [place] [address] 01/02/2024 3:00 PM EDT Office Visit Ne[place] [address] Adam Costa MD [facility] [place] [address] documented as of this encounter Procedures Procedure Name Priority Date/Time Associated Diagnosis Comments ECHO COMPLETE W CONTRAST Routine 02/03/2017 1:08 PM EDT Non-ST elevation myocardial infarction (NSTEMI) documented in this encounter Visit Diagnoses Not on filedocumented in this encounter Administered Medications Inactive Administered Medications - up to 3 most recent administrations Medication Order MAR Action Action Date Dose Rate Site perflutren protein-A microspheres (OPTISON) 0.22 mg/mL injection 3 mL 3 mL, Intravenous, ONCE PRN, 1 dose, Starting on Fri02/03/17 at 1309, Until Fri02/03/17 at 1245, for enhancement of sub-optimal echo images, Echo Lab (Intra-Procedure), Routine Given 02/03/2017 12:45 PM EDT 3 mLs documented in this encounter Care Teams Kaiwhakahaere Relationship Specialty Start Date End Date Rolando Moise MD [facility] [place] [address] PCP - General Family Medicine 09/16/16 documented as of this encounter
--- OUTSIDE RECORDS SUMMARY | 2023-12-21 07:53 | XMS_ITS | Encounter Summary ---
Author Organization [facility] Address [facility] [place] [address] Care Team Providers Care Electronic Security Technician Name Role Phone Rolando Zacarias MD Primary Care Provider [phone] Reason for Visit * Reason Comments Aneurysm (Aortic) Encounter Details Date Type Department Care Team (Late st Contact Info) Description 08/11/2014 10:30 AM EDT Follow-[place] [address] Steven Borges MD [facility] [place] [address] AAA (abdominal aortic aneurysm) Discharge Disposition: Home Social History Tobacco Use [...] Sign Reading Time Taken Comments Blood Pressure 121/38 08/11/2014 10:15 AM EDT Pulse 76 08/11/2014 10:15 AM EDT Temperature - - Respiratory Rate 20 08/11/2014 10:15 AM EDT Oxygen Saturation - - Inhaled Oxygen Concentration - - Weight 83.9 kg (185 lb) 08/11/2014 10:15 AM EDT Height 175.3 cm (5' 9) 08/11/2014 10:15 AM EDT Body Mass Index 27.32 08/11/2014 10:15 AM EDT documented in this encounter Progress Notes * Steven Borges MD - 08/11/2014 10:33 AM EDT Interval history: Mr Thompson is a 75 yo gentleman who presents for follow-up of EVAR. This was performed on April 12, 2011. States he has been well with no recent changes in health. Last seen by me inclinic one year ago. No problems with his repair noted at that time Prior vascular history: Endovascular repair of aortic aneurysm, using Cook Zenith Flex [id number] via right; ipsilateral extension with TFLE 16-56; contralateral extension with TFLE 16-73; Apr 12, 2011 Patient Active Problem List Diagnosis Code ??? AAA (abdominal aortic aneurysm) 441.4 ??? HTN (hypertension) 401.9 ??? NIDDM (non-insulin dependent diabetes mellitus) 250.00 ??? S/P hernia repair V45.89 Pex: NAD Studies: CTA reveals graft in good position, no leaks, no interval growth of sac Assessment / Plan: Doing well. Follow-up 2 years with CTA. I have suggested a daily baby aspirin documented in this encounter Plan of Treatment Upcoming Encounters Date Type Department Care Team (Latest Contact Info) Description 01/02/2024 1:30 PM EDT Laboratory Appointment Lab [address] [place] [address] 01/02/2024 3:00 PM EDT Office Visit Ne[place] [address] Adam Costa MD [facility] [place] [address] documented as of this encounter Procedures Procedure Name Priority Date/Time Associated Diagnosis Comments CREATININE Routine 08/11/2014 8:52 AM EDT AAA (abdominal aortic aneurysm) documented in this encounter Results * (ABNORMAL) Creatinine (08/11/2014 8:52 AM EDT) Creatinine 1.38 0.80 - 1.50 mg/dL [facility] Comment: Please note that the pediatric reference intervals supplied above were not validated [place] [facility] Results from pediatric patients should be interpreted in conjunction to the patient's age, height and muscle mass. Est Glomerular Filtration Rate 50(L) >=60 [facility] Comment: This estimated GFR (eGFR) value was [...] the following links into your internet browser. [email or web address] Blood specimen (specimen) 08/11/2014 8:52 AM EDT 08/11/2014 9:00 AM EDT Narrative Resulting Agency Comment Spec In Lab Steven Borges MD CHEMISTRY ORDERABLES [facility] documented in this encounter Visit Diagnoses Diagnosis AAA (abdominal aortic aneurysm) Abdominal aneurysm without mention of rupture documented in this encounter Care Teams Electronic Security Technician Relationship Specialty Start Date End Date Rolando Zacarias MD PCP - General 04/12/11 09/15/16 documented as of this encounter
--- OUTSIDE RECORDS SUMMARY | 2023-12-21 07:53 | XMS_ITS | Encounter Summary ---
Author Organization [facility] Address [facility] [place] [address] Care Team Providers Care Range Management Specialist Name Role Phone Rolando Zacarias MD Primary Care Provider [phone] Reason for Visit * Reason Comments Follow-up AAA surveillance Encounter Details Date Type Department Care Team (Late st Contact Info) Description 10/06/2012 1:00 PM EDT Follow-[place] [phone] CLINIC, Steven Barahona MD [facility] [place] [address] AAA (abdominal aortic aneurysm) (Primary Dx) Discharge [...] Sign Reading Time Taken Comments Blood Pressure 162/93 10/06/2012 1:11 PM EDT rig ht arm Pulse 64 10/06/2012 1:07 PM EDT Temperature - - Respiratory Rate - - Oxygen Saturation 98% 10/06/2012 1:07 PM EDT Inhaled Oxygen Concentration - - Weight 88.5 kg (195 lb) 10/06/2012 1:07 PM EDT Height 175.3 cm (5' 9) 10/06/2012 1:07 PM EDT Body Mass Index 28.8 10/06/2012 1:07 PM EDT documented in this encounter Progress Notes * Steven Borges MD - 10/06/2012 1:08 PM EDT Interval history: Mr Thompson is [...] of aortic aneurysm, using Cook Zenith Flex [id number] via right; ipsilateral extension with TFLE 16-56; contralateral extension with TFLE 16-73; Apr 12, 2011 Pex: NAD Studies: CTA reveals graft in good position, no leaks, no interval growth of sac Assessment / Plan: Doing well. Follow-up one year with CTA. I have suggested a daily baby aspirin documented in this encounter Plan of Treatment Upcoming Encounters Date Type Department Care Team (Latest Contact Info) Description 01/02/2024 1:30 PM EDT Laboratory Appointment Lab [address] [address] 01/02/2024 3:00 PM EDT Office Visit [place] [address] Adam Costa MD [facility] [place] [address] documented as of this encounter Visit Diagnoses Diagnosis AAA (abdominal aortic aneurysm)- Primary Abdominal aneurysm without mention of rupture documented in this encounter Care Teams Range Management Specialist Relationship Specialty Start Date End Date Rolando Zacarias MD PCP - General 04/12/11 09/15/16 documented as of this encounter
--- OUTSIDE RECORDS SUMMARY | 2023-12-21 07:53 | XMS_ITS | Encounter Summary ---
Author Organization Formerly [facility] [place] [address] Care Team Providers Care Sole Trimmer Name Role Phone Rolando Moise MD Primary Care Provider [phone] Encounter Details Date Type Department Care Team (Late st Contact Info) Description 02/03/2017 External [place] [address] Jeanette Betancourt MD [facility] [place] [address] Social History Tobacco Use Types Packs/Day Years [...] 1:30 PM EDT Laboratory Appointment Lab [address] [place] [address] 01/02/2024 3:00 PM EDT Office Visit [place] [phone] Adam Costa MD [facility] [place] [address] documented as of this encounter Procedures Procedure Name Priority Date/Time Associated Diagnosis Comments ECG SCAN Routine 02/03/2017 documented in this encounter Results * Scan Doc: ECG (02/03/2017) Jeanette Betancourt MD MEDIA MGR SCAN EXT O RDR/RSLT documented in this encounter Visit Diagnoses Not on filedocumented in this encounter Care Teams Sole Trimmer Relationship Specialty Start Date End Date Rolando Moise MD [facility] [place] [address] PCP - General Family Medicine 09/16/16 documented as of this encounter
--- OUTSIDE RECORDS SUMMARY | 2023-12-21 07:53 | XMS_ITS | Encounter Summary ---
Author Organization [facility] Address [facility] [place] [address] Care Team Providers Care Senior Investment Analyst Name Role Phone Rolando Moise MD Primary Care Provider [phone] Reason for Visit * Reason Comments Aneurysm (Aortic) Encounter Details Date Type Department Care Team (Late st Contact Info) Description 09/16/2016 2:00 PM EDT Office [place] [phone] Erik Gill MD [facility] [place] [address] Abdominal aortic aneurysm (AAA) without rupture Social [...] Sign Reading Time Taken Comments Blood Pressure 154/89 09/16/2016 2:46 PM EDT Pulse 69 09/16/2016 2:46 PM EDT Temperature - - Respiratory Rate - - Oxygen Saturation - - Inhaled Oxygen Concentration - - Weight 90.7 kg (200 lb) 09/16/2016 2:46 PM EDT Height 177.8 cm (5' 10) 09/16/2016 2:46 PM EDT Body Mass Index 28.7 09/16/2016 2:46 PM EDT documented in this encounter Patient Instructions * Patient Instructions* Erik Gill MD - 09/16/2016 2:00 PM EDT Call with any questions documented in this encounter Progress Notes * Erik Gill MD - 09/16/2016 2:00 PM EDT Interval history: Mr Thompson is a 75 yo gentleman who presents for follow-up of EVAR. This was performed on April 12, 2011. States he has been well with no recent changes in health. Last seen by me inclinic one year ago. No problems with his repair noted at that time ?? Prior vascular history: Endovascular repair of aortic aneurysm, using Cook Zenith Flex [id number] via right; ipsilateral extension with TFLE 16-56; contralateral extension with TFLE 16-73; Apr 12, 2011 ?? Patient Active Problem List Diagnosis Code ??? AAA (abdominal aortic aneurysm) 441.4 ??? HTN (hypertension) 401.9 ??? NIDDM (non-insulin dependent diabetes mellitus) 250.00 ??? S/P hernia repair V45.89 ? Pex: NAD ?? Studies: CTA reveals graft in good position, no leaks, no interval growth of sac ?? Assessment / Plan: Doing well. Follow-up 2 years with duplex. I have suggested a daily baby aspirin documented in this encounter Plan of Treatment Upcoming Encounters Date Type Department Care Team (Latest Contact Info) Description 01/02/2024 1:30 PM EDT Laboratory Appointment Lab [address] [place] [address] 01/02/2024 3:00 PM EDT Office Visit [place] [address] Adam Costa MD [facility] [place] [address] documented as of this encounter Visit Diagnoses Diagnosis Abdominal aortic aneurysm (AAA) without rupture documented in this encounter Care Teams Senior Investment Analyst Relationship Specialty Start Date End Date Rolando Moise MD [address] [place] [address] PCP - General Family Medicine 09/16/16 documented as of this encounter
--- OUTSIDE RECORDS SUMMARY | 2023-12-21 07:53 | XMS_ITS | Encounter Summary ---
Author Organization [facility] [place] [address] Care Team Providers Care Dispatcher Tugboat Name Role Phone Rolando Zacarias MD Primary Care Provider [phone] Encounter Details Date Type Department Care Team (Late st Contact Info) Description 04/15/2014 Orders [place] [address] Sydnie Adam RN AAA (abdominal aortic aneurysm) Social History Tobacco [...] 1:30 PM EDT Laboratory Appointment Lab [address] [place] [phone] 01/02/2024 3:00 PM EDT Office Visit Ne[place] [address] Adam Costa MD [facility] [place] [address] documented as of this encounter Results * (ABNORMAL) Creatinine (08/11/2014 8:52 AM EDT) Creatinine 1.38 0.80 - 1.50 mg/dL [facility] Comment: Please note that the pediatric reference intervals supplied above were not validated at [facility]. Results from pediatric patients should be interpreted in conjunction to the patient's age, height and muscle mass. Est Glomerular Filtration Rate 50(L) >=60 [facility] Comment: This estimated GFR (eGFR) value was [...] the following links into your internet browser. [email or web address] Blood specimen (specimen) 08/11/2014 8:52 AM EDT 08/11/2014 9:00 AM EDT Narrative Resulting Agency Comment Spec In Lab Steven Borges MD CHEMISTRY ORDERABLES [facility] documented in this encounter Visit Diagnoses Diagnosis AAA (abdominal aortic aneurysm) Abdominal aneurysm without mention of rupture documented in this encounter Care Teams Dispatcher Tugboat Relationship Specialty Start Date End Date Rolando Zacarias MD PCP - General 04/12/11 09/15/16 documented as of this encounter
--- OUTSIDE RECORDS SUMMARY | 2023-12-21 07:53 | XMS_ITS | Encounter Summary ---
Author Organization [facility] Address [facility] [place] [address] Care Team Providers Care Carving Machine Operator Name Role Phone Rolando Zacarias MD Primary Care Provider [phone] Reason for Visit * Reason Comments Aneurysm (Aortic) Encounter Details Date Type Department Care Team (Late st Contact Info) Description 04/23/2011 3:20 PM EST Office [place] [phone] Steven Borges MD [facility] [place] [address] AAA (abdominal aortic aneurysm) without rupture (Primary Dx) Discharge Disposition: Home Social History Tobacco Use Types Packs/Day Years Used Date Smoking Tobacco: Some Days Pipe Alcohol Use Standard Drinks/Week Comments No 0 (1 standard drink = 0.6 oz pur e alcohol) Sex and Gender Information Value Date Recorded Sex Assigned at Not on file Gender Identity Not on file Sexual Orientation Not on file documented as of this encounter Last Filed Vital Signs Vital Sign Reading Time Taken Comments Blood Pressure 152/70 04/23/2011 3:16 PM EST Pulse 68 04/23/2011 3:16 PM EST Temperature - - Respiratory Rate - - Oxygen Saturation - - Inhaled Oxygen Concentration - - Weight 88.5 kg (195 lb) 04/23/2011 3:16 PM EST Height 177.8 cm (5' 10) 04/23/2011 3:16 PM EST Body Mass Index 27.98 04/23/2011 3:16 PM EST documented in this encounter Progress Notes * Steven Borges MD - 04/23/2011 3:28 PM EST Mr Thompson returns after EVAR for symptomatic AAA. He did very well post-op. He presents without complaints today. States he is eating well and ambulating without difficulty. Interested in returning to work [employer]. He is no longer taking meds for pain On exam there is no palpable aortic pulsation. He has palpable femoral pulses and his incisions arehealing well. CTA reveals no leak, graft is in good position. Overall Mr Thompson is doing very well. 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 I will see him back in 6-months documented in this encounter Plan of Treatment Upcoming Encounters Date Type Department Care Team (Latest Contact Info) Description 01/02/2024 1:30 PM EDT Laboratory Appointment Lab [address] [place] [address] 01/02/2024 3:00 PM EDT Office Visit Neph[place] [address] Adam Costa MD [facility] [place] [address] documented as of this encounter Visit Diagnoses Diagnosis AAA (abdominal aortic aneurysm) without rupture- Primary Abdominal aneurysm without mention of rupture documented in this encounter Care Teams Carving Machine Operator Relationship Specialty Start Date End Date Rolando Zacarias MD PCP - General 04/12/11 09/15/16 documented as of this encounter
--- OUTSIDE RECORDS SUMMARY | 2023-12-21 07:53 | XMS_ITS | Encounter Summary ---
Author Organization [facility] Address [facility] [place] [address] Care Team Providers Care Filer Repairer Name Role Phone Rolando Zacarias MD Primary Care Provider [phone] Encounter Details Date Type Department Care Team (Latest Contact Info) Description 04/23/2011 2:32 PM EST - 04/23/2011 11:59 PM [facility] [place] [phone] CLINIC, Steven Barahona MD [facility] [place] [address] AAA (abdominal aortic aneurysm) Discharge Disposition: Home [...] Sig Dispensed Refills Start Date End Date acetaminophen (TYLENOL) 325 mg tablet Take 2 tablets by mouth every 4 hours as needed for Pain. 30 tablet 04/16/2011 10/22/2011 aspirin 81 mg chewable tablet Take 1 tablet by mouth daily. 30 tablet 04/16/2011 10/22/2011 ciprofloxacin (CIPRO) 500 mg tablet Take 1 tablet by mouth 2 times daily. 14 tablet 0 04/16/2011 10/22/2011 metroNIDAZOLE (FLAGYL) 500 mg tablet Take 1 tablet by mouth 3 times daily. 21 tablet 0 04/16/2011 10/22/2011 enalapril (VASOTEC) 5 mg tablet Take 2 tablets by mouth daily. 30 tablet 04/16/2011 02/03/2017 HYDROmorphone (DILAUDID) 2 mg tablet Take 1 tablet by mouth every 4 hours as needed for Pain. 20 tablet 0 04/16/2011 10/22/2011 metFORMIN (GLUCOPHAGE) 500 mg tablet Take 500 mg by mouth 2 times daily (with meals). 11/09/2020 simvastatin (ZOCOR) 20 mg tablet Take 20 mg by mouth nightly. Reported on 09/16/2016 02/03/2017 DILTiazem (DILACOR XR) 240 mg 24 hr capsule Take 240 mg by mouth daily. Reported on 09/16/2016 02/03/2017 documented as of this encounter Miscellaneous Notes * Miscellaneous - Provider, Scanning - 04/26/2011 7:46 AM EST * Ancillary Services Notes - Bayron Jha - 04/23/2011 2:55 PM EST You had a CT Scan on @ ____AM/PM. Per [facility] Policy it is important that you stop taking your (Diabetic Medication) for 2 days following the injection of IV iodinated contrast. You can start taking your in the AM/PM. If you have any questions or concerns, contact your primary care provider. Also drink plenty of water following your CT Scan to help clear the IV Iodinated contrast out of your body. Thank You, [facility] CT Scan Dept documented in this encounter Plan of Treatment Upcoming Encounters Date Type Department Care Team (Latest Contact Info) Description 01/02/2024 1:30 PM EDT Laboratory Appointment Lab [address] [place] [address] 01/02/2024 3:00 PM EDT Office Visit Neph[place] [phone] Adam Costa MD [facility] [place] [address] documented as of this encounter Procedures Procedure Name Priority Date/Time Associated Diagnosis Comments CT ANGIOGRAM ABDOMEN AND PELVIS W CONTRAST Routine 04/23/2011 2:59 PM EST Abdominal aneurysm without mention of rupture documented in this encounter Results * CT ABDOMINAL AORTA ANEURYSM WITH CONTRAST (04/23/2011 2:59 PM EST) Anatomical Region Laterality Modality Abdomen, Pelvis Computed Tomogra phy 04/23/2011 2:59 PM EST Impressions 04/23/2011 4:19 PM EST IMPRESSION: ?? Post EVAR for AAA, as described. ?? Possible small focal endograft leak/type II canalization, seen only on arterial-phase images, as described. Narrative 04/23/2011 4:19 PM EST CTA ABDOMEN AND PELVIS: CLINICAL: ??Post endograft repair of AAA. TECHNIQUE: ??110 cc Omnipaque-350 utilized for an intravenously enhanced CT angiogram of the abdominal aorta. Three-dimensional reformatted images were reconstructed. Delayed postcontrast images were obtained in addition. ?? FINDINGS: ??Post bifurcated endograft repair of the intrarenal abdominal aortic aneurysm. The distal limbs of the endograft terminate in the common iliac arteries. The greatest dimensions of the [place] aneurysm sac are 7.9 x 5.6 cm. ?? On the arterial phase images (series #4), a small focus of mural increased attenuation from the possible enhancement is seen at the level just distal to the bifurcation of the graft (series #2, image #129). This may be a small endoleak. It is not appreciated on the delayed postcontrast images. ?? OTHER CT FINDINGS: ??Simple right renal cyst. Scattered colonic diverticula. ?? Procedure Note Isac Smith MD - 04/23/2011 CTA ABDOMEN AND PELVIS: CLINICAL: Post endograft repair of AAA. TECHNIQUE: 110 cc Omnipaque-350 utilized for an intravenously enhanced CT angiogram of the abdominal aorta. Three-dimensional reformatted imageswere reconstructed. Delayed postcontrast images were obtained in addition. FINDINGS: Post bifurcated endograft repair of the intrarenal abdominalaortic aneurysm. The distal limbs of the endograft terminate in the common iliac arteries. The greatest dimensions of the [place] aneurysm sac are 7.9 x 5.6cm. On the arterial phase images (series #4), a small focus of mural increased attenuation from the possible enhancement is seen at the level just distalto the bifurcation of the graft (series #2, image #129). This may be a small endoleak. It is not appreciated on the delayed postcontrast images. OTHER CT FINDINGS: Simple right renal cyst. Scattered colonicdiverticula. IMPRESSION IMPRESSION: Post EVAR for AAA, as described. Possible small focal endograft leak/type II canalization, seen only on arterial-phase images, as described. Chris Johnson MD IMG CT ORDERABLES documented in this [...] Intravenous, ONCE PRN, 1 dose, Starting on Tu04/23/11 at 1451, Until 04/23/11 at 1452, Per Protocol, Routine Given 04/23/2011 2:52 PM EST 38,500 mg documented in this encounter Care Teams Filer Repairer Relationship Specialty Start Date End Date Rolando Zacarias MD PCP - General 04/12/11 09/15/16 documented as of this encounter
--- OUTSIDE RECORDS SUMMARY | 2023-12-21 07:54 | XMS_ITS | Encounter Summary ---
Author Organization [facility] Address [facility] [place] [address] Care Team Providers Care Battery Repairer Name Role Phone Arely Vickers MD Primary Care Provider [phone] Reason for Visit * Reason Comments Abdominal Pain Encounter Details Date Type Department Care Team (Late st Contact Info) Description 04/12/2011 10:58 AM EST - 04/12/2011 12:26 PM EST [place] [address] Steven Borges MD [facility] [place] [address] @EVG-PLACEMENT, CUFF OR EXT. AORTIC OR ILIAC ANEURYSM REPAIR, GORE (WRVU 12.8) Social History Tobacco Use Types Packs/Day Years Used Date Smoking Tobacco: Never Assessed Alcohol Use Standard Drinks/Week Comments No 0 (1 standard drink = 0.6 oz pur e alcohol) Sex and Gender Information Value Date Recorded Sex Assigned at Not on file Gender Identity Not on file Sexual Orientation Not on file documented as of this encounter Last Filed Vital Signs Vital Sign Reading Time Taken Comments Blood Pressure 176/80 04/16/2011 7:00 AM EST Pulse 76 04/16/2011 7:00 AM EST Temperature 37.1 ??C (98.8 ??F) 04/16/2011 7:00 AM ES T Respiratory Rate 20 04/16/2011 7:00 AM EST Oxygen Saturation 100% 04/16/2011 7:00 AM EST Inhaled Oxygen Concentration - - Weight 102.1 kg (225 lb) 04/12/2011 5:47 PM EST Height 177.8 cm (5' 10) 04/12/2011 5:47 PM EST Body Mass Index 32.28 04/12/2011 5:47 PM EST documented in this encounter Discharge Instructions * Patient Instructions* Loretta Matthews RN - 04/12/2011 4:00 PM EST You were admitted on 04/12/11 for an urgent repair of your large abdominal aortic aneurysm. This went very well with a repair by an endograft. Dr. Borges will want to see you in approximately one monthwith a 3D CT scan first. These appointments will be scheduled and sent to you in the mail. Please call our office if you don't receive this as your follow up is important to us. Your blood pressure was elevated in the hospital and we increased your Vasotec dose from 5 mg to 10mg daily. We have scheduled an appointment on Sunday 04/22 at 1pm with your PCP office (Viviana Aj NP) to follow up on your blood pressure and further medication dosing and to have your blood drawn to recheck your labs. Call your doctor if: Any back or abdominal pain Activity level: Up as tolerated Diet: No concentrated sweets Driving: None for now Shower/Bath: Ok to shower Wound Care: Ok to remove dressings on 04/17 then no need to cover For any problems or questions please call [phone] Angela Mujica RN Vascular Nurse Clinician Loretta Matthews RN Vascular Nurse Clinician documented in this encounter Medications at Time [...] 09/16/2016 02/03/2017 documented as of this encounter Progress Notes * Leandra Monreal RN - 04/16/2011 12:51 PM EST D/C summary reviewed with patient and his significant other. Peripheral IV removed prior to D/C home. Plan for follow up in clinic in one month. Re- educated patient r/t his activity/driving restrictions while taking narcotic pain medication or while still in pain after surgery. Pt was D/C home. * Chris Johnson - 04/16/2011 10:11 AM EST General Surgery Progress Note Cali Thompson is a 75 y.o. male day 4 s/p EVAR for a symptomatic AAA. Patient came out of OR intubated and sedated, hypotensive intraoperatively requiring significant resuscitation. On 70 of venu at the end of the case. Weaned off venu, lactate normalized. Extubated POD#1. ISCU POD#2. Floor POD#3. 24hr/Subjective: Patient c/o mild back pain (chronic), otherwise no issues. Denies CP/sob, n/v/d. Passing stool. Ambulating without issue. Last value Range last 24hrs Temperature Temp: 37.1 ??C (98.8 ??F) Temp: [36.6 ??C (97.9 ??F)-37.1 ??C (98.8 ??F)] Heart Rate Heart Rate: 76 Heart Rate: [60-76] Blood Pressure BP: 176/80 mmHg BP: (151-176)/(66-91) Respiratory Rate Resp: 20 Resp: [16-20] SpO2 SpO2: 100 % SpO2: [93 %-100 %] Intake/Output Summary (Last 24 hours) at 04/16/11 1011 Last data filed at 04/16/11 0750 Gross per 24 hour Intake 1593 ml Output 1975 ml Net -382 ml Gen: AxO x 3. NAD Cardio: RRR Pulm: CTA bilaterally on anterior ascultation ABD: obese, soft, non-tender, non-distended : Urinary catheter with clear urine in bag Ext: WWP. Palpable DP/PT bilaterally. Groin incisions with c/d/i dressing, no evidence of hematoma. Recent Labs Basename 04/16/11 0608 04/15/11 0605 04/14/11 0800 ??? WBC 11.4* 16.2* 18.4* ??? HGB 12.5* 12.0* 12.4* ??? HCT 35.9* 34.6* 36.1* ??? PLATELET 159 146 138* ??? PT -- -- -- ??? INR -- -- -- ??? PTT -- -- -- Recent Labs Basename 04/16/11 0608 04/15/11 0605 04/15/11 0430 04/14/11 0800 04/13/11 2147 ??? NA 136 140 -- 140 -- ??? K 3.1* 3.3* 3.2* 3.8 3.4* ??? CL 99 103 -- 107 -- ??? CO2 28 26 -- 25 -- ??? BUN 10 7* -- 7* -- ??? CREATININE 1.13 0.94 -- 1.05 -- ??? GLUCOSE 168 160 -- 184 -- ??? CALCIUM 8.8 8.6 -- 8.4* -- ??? MAGNESIUM -- -- -- -- -- ??? PHOS -- -- -- -- -- A/P: s/p EVAR for symptomatic AAA. Taken to ICU post-op intubated and sedated - gradually weaned off pressors with downtrending lactate. Extubated 04/13, now on room air. HD stable. Neuro: PO dilaudid, completing 4 doses of toradol to help w/LBP CV: hypotension resolved, now becoming progressively hypertensive. Home diltiazem/vasotec restarted. Continue ASA. Will increase Vasotec to 10 mg daily. Pulm: NO issues. IS. GI: Diabetic diet. : UOP good. Cr stable, urinating w/o issue. FEK: Hep locked yesterday. Will replete K again today. ID: [facility] trending down - patient on Vanc/zosyn for superimposed diverticulitis. Will start PO cipro/flagyl and have him continue for 7 more days. Dispo: Home today. * Christopher Barnes RN - 04/15/2011 4:05 PM EST Patient received from [facility] to [facility] in stable condition. A+OX3, BP 170/78, other vs ok. Toradol 15mg IV for c/o chronic back pain. * Chris Johnson - 04/15/2011 1:09 PM EST General Surgery Progress Note Cali Thompson is a 75 y.o. male day 3 s/p EVAR for a symptomatic AAA. Patient came out of OR intubated and sedated, hypotensive intraoperatively requiring significant resuscitation. On 70 of venu at the end of the case. Weaned off venu, lactate normalized. Extubated POD#1. Recovering well. 24hr/Subjective: Patient c/o mild back pain, otherwise no issues. Last value Range last 24hrs Temperature Temp: 36.9 ??C (98.4 ??F) Temp: [36.7 ??C (98.1 ??F)-37.2 ??C (99 ??F)] Heart Rate Heart Rate: 60 Heart Rate: [58-76] Blood Pressure BP: 169/66 mmHg BP: (137-175)/(62-88) Respiratory Rate Resp: 16 Resp: [12-16] SpO2 SpO2: 97 % SpO2: [93 %-97 %] Intake/Output Summary (Last 24 hours) at 04/15/11 1309 Last data filed at 04/15/11 1200 Gross per 24 hour Intake 898 ml Output 3461 ml Net -2563 ml Gen: AxO x 3. NAD Cardio: RRR Pulm: CTA bilaterally on anterior ascultation ABD: soft, lightly distended, tender to deep palpation in LLQ : Urinary catheter with clear urine in bag Ext: WWP. Palpable DP/PT bilaterally. Groin incisions with c/d/i dressing, no evidence of hematoma. Recent Labs Basename 04/15/11 0605 04/14/11 0800 04/13/11 0400 04/12/11 1725 04/12/11 1455 ??? WBC 16.2* 18.4* 13.3* 16.3* -- ??? HGB 12.0* 12.4* 11.6* 12.0* -- ??? HCT 34.6* 36.1* 34.7* 35.6* -- ??? PLATELET 146 138* 137* 170 -- ??? PT -- -- 14.8* -- 15.8* ??? INR -- -- 1.1 -- 1.2* ??? PTT -- -- 27 -- 32 Recent Labs Basename 04/15/11 0605 04/15/11 0430 04/14/11 0800 04/13/11 2147 04/13/11 0400 04/12/11 1455 ??? NA 140 -- 140 -- 139 139 ??? K 3.3* 3.2* 3.8 3.4* 3.7 -- ??? CL 103 -- 107 -- 109* 109* ??? CO2 26 -- 25 -- 19* 20* ??? BUN 7* -- 7* -- 12 13 ??? CREATININE 0.94 -- 1.05 -- 1.12 1.03 ??? GLUCOSE 160 -- 184 -- 158 189 ??? CALCIUM 8.6 -- 8.4* -- 7.4* 6.8* ??? MAGNESIUM -- -- -- -- -- 0.54* ??? PHOS -- -- -- -- -- 4.6* A/P: s/p EVAR for symptomatic AAA. Taken to ICU post-op intubated and sedated - gradually weaned off pressors with downtrending lactate. Extubated 04/13, on room air this AM. HD stable. Neuro: PO dilaudid, completing 4 doses of toradol to help w/LBP CV: hypotension resolved, now becoming progressively hypertensive. Home diltiazem/vasotec restarted. Continue ASA. Pulm: NO issues. IS GI: Clear liquids. Will advance if well tolerated. : UOP great, auto diuresing, Cr acceptable. D/c mendy, DTV FEK: Hep locked yesterday. Will replete K this morning. ID: WCC down to 16 from 18 - patient on Vanc/zosyn for superimposed diverticulitis Dispo: Ambulate today. Floor status. Likely home tomorrow if patient remains stable and WCC continues trending downward. * Sydnie Adam RN - 04/15/2011 11:43 AM EST Office of Care Management (OCM) / Clinical Truss Maker (CRC)/ Initial Assessment Discussed patient with Provider Team and in multidisciplinary discharge-planning rounds. Reviewed record and interviewed patient. Introduced/reviewed CRC role and services accepted. REASON for HOSPITALIZATION: AAA (abdominal aortic aneurysm) ; s/p EVAR; transferred to floor today from ICU Awake,alert,resting in bed; c/o 8/ back pain but also has chronic back pain; Toradol q6h prn withgood effect per nursing;IV Vancomycin q12h;IV Zosyn q6; WBC 16 today-afebrile; voiding qs;? Discharge tomorrow if med. Stable. 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 PRIMARY CARE PHYSICIAN: ARELY VICKERS MD [place] [phone] / [place] [id number] POTENTIAL DISCHARGE NEEDS: None anticipated; states can monitor his BP at home PATIENT/FAMILY EDUCATION NEEDS:per discharge summary ANTICIPATED BARRIERS TO DISCHARGE:none TRANSPORTATION @ D/C:friend Montse PLAN: Vascular CRC will continue to monitor progress, follow for continuity of care and assist withdischarge planning while hospitalized * Abhi Dukes, PharmD - 04/14/2011 2:08 PM EST Clinical Pharmacist Note-Vanc Cali Thompson [id number] Cali Thompson is a 75 y.o. male who began antibiotic therapy which includes intravenous vancomycin. Today is day 2 of treatment. Based on a review of the patient???s chart and/or conversation with the patient???s providers vancomycin 1500 mg every 12 hours is being used for empiric coverage with atargeted goal of around 15 mg/L. The following Pharmacokinetic data has been evaluated: Wt Readings from Last 1 Encounters: 04/12/11 102.059 kg (225 lb) Ht Readings from Last 1 Encounters: 04/12/11 177.8 cm (5' 10) No results found for this basename: JOSÉ ANTONIO Creatinine (mg/dL) Date Value 04/13/2011 1.12 Estimated GFR: 69.2 ml/min (based on Cr of 1.12). (Cockcroft & Gault calculation) After a review of this information the following pharmacokinetic parameters have been estimated: Half-Life (T1/2) = 9.2 hours Elimination rate (Ke) = 0.075 hr-1 Volume of distribution (Vd) = 71.4 Liters Dosing recommendations: Level drawn this morning at 10:30 came back at 14.2 mg/L. No change in vancomycin dose or dosing interval at this time. Monitoring recommendations: Recheck vancomycin trough level (30 minutes prior to a scheduled dose) if significant changes in SCr, BUN or fluid status occur; otherwise recheck serum trough levels (30 minutes prior to a scheduleddose) in 5-7 days. We will continue to monitor the patient as long as he/she remains on vancomycin therapy. Please watch SCr, BUN and fluid status closely. Please page the care area pharmacist with any questions you may have. Alternately, during off-hours you may call [phone] to contact a pharmacist. ABHI DUKES PHARMD * LuceroChris gresham Thanh - 04/14/2011 9:23 AM EST General Surgery Progress Note Cali Thompson is a 75 y.o. male day 2 s/p EVAR for a symptomatic AAA. Patient came out of OR intubated and sedated, hypotensive intraoperatively requiring significant resuscitation. On 70 of venu at the end of the case. Weaned off venu, lactate normalized. Extubated yesterday. Some back pain issues overnight but otherwise well. Last value Range last 24hrs Temperature Temp: 37 ??C (98.6 ??F) Temp: [36.7 ??C (98.1 ??F)-37.3 ??C (99.1 ??F)] Heart Rate Heart Rate: 78 Heart Rate: [52-90] Blood Pressure BP: 171/88 mmHg BP: (140-171)/(53-90) Respiratory Rate Resp: 14 Resp: [10-21] SpO2 SpO2: 90 % SpO2: [90 %-97 %] Intake/Output Summary (Last 24 hours) at 04/14/11 0923 Last data filed at 04/14/11 0630 Gross per 24 hour Intake 2402 ml Output 5400 ml Net -2998 ml Gen: Extubate AxO Cardio: RRR Pulm: Referred mechanical ventilator noise. Otherwise clear anteriorly ABD: s/nd/nt : Urinary catheter with clear urine in bag Ext: WWP. Palpable DP/PT bilaterally. Groin incisions with c/d/i dressing, no evidence of hematoma. Lines: PIV x 2 CBC: WCC - 18.4 Hgb - 12.4 Plt - 138 Lactate -1.3 BMP: Na: 140 K: 3.8 Chl: 107 CO2: 25 BUN: 7 Cr: 1.05 A/P: s/p EVAR for symptomatic AAA. Taken to ICU post-op intubated and sedated - gradually weaned off pressors with downtrending lactate. Extubated 04/13, on room air this AM. HD stable. Neuro: Transition to PO dilaudid w/ IV breakthrough. Will give 4 doses of toradol to help w/LBP CV: hypotension resolved, now becoming progressively hypertensive. Will restart home Diltiazem. Continue ASA. Continue to trend lactate Pulm: Extubated yesterday - oxygenating well on room air GI: Continue NPO for Now. : UOP adequate, lytes/Cr acceptable, HLIV ID: WCC up a bit today - patient Vanc/zosyn for superimposed diverticulitis Dispo: Up out of bed today. Will transfer to ISCU today * Estela Flores RCP - 04/13/2011 5:06 PM EST Patient found on noted settings. SBT done and patient passed and was extubated to 4 lpm NC with no complications. YA * Poli Chowdhury MD - 04/13/2011 3:01 PM EST Cali Thompson [id number] 04/13/2011 04/12/2011 7:04 AM Critical Care Medicine Attending Inpatient Progress Note Author: POLI CHOWDHURY MD Patient seen and examined on critical care rounds. Cali Thompson is a 75 y.o. male with the following active issues:: ASSESSMENT, MANAGEMENT, and DECISION MAKING: Symptomatic leaking AAA s/p endovascular repair. Patient Active Problem List Diagnoses Code ??? AAA (abdominal aortic aneurysm) 441.4L ??? HTN (hypertension) 401.9AF ??? NIDDM (non-insulin dependent diabetes mellitus) 250.00AQ ??? S/P hernia repair V45.89DR Past Medical History Diagnosis Date ??? AAA (abdominal aortic aneurysm) 04/12/2011 ??? HTN (hypertension) 04/12/2011 ??? NIDDM (non-insulin dependent diabetes mellitus) 04/12/2011 ??? S/P hernia repair 04/12/2011 24 Hour Events Transferred with 5 cm leaking AAA (symptomatic) From ED to ICU care to OR for endovascular procedure. Hemodynamically stable in the ED. Arterial line placed. Post operative lactic acidosis improving overnight. Agitated with decreasing sedation. Improved with resuscitation. ??? dexmedetomidine (PRECEDEX) 400 mcg in sodium chloride 0.9% 100 mL infusion 0-0.5 mcg/kg/hr (Adjusted) Intravenous Continuous ### ??? PHENYLephrine (VENU-SYNEPHRINE) 20 mg in sodium chloride 250 mL infusion 10- 180 mcg/min Intravenous Continuous ### ??? lactated ringers infusion 100 mL/hr Intravenous Continuous ### ??? fentaNYL 2500mcg/50mL infusion 0-150 mcg/hr Intravenous Continuous ### ??? propofol (DIPRIVAN) infusion 5-50 mcg/kg/min Intravenous Continuous ### ??? DISCONTD: sodium chloride 0.9% infusion 100 mL/hr Intravenous Continuous ### ??? DISCONTD: propofol (DIPRIVAN) infusion 5-50 mcg/kg/min Intravenous Continuous ### ??? aspirin 300 mg Rectal Daily ??? DISCONTD: aspirin 81 mg Oral Daily ??? esomeprazole 40 mg Oral Daily ??? esomeprazole 40 mg Intravenous Daily ??? insulin aspart 1-4 Units Subcutaneous 4 Times Daily ??? bolus IV fluid Intravenous Once ??? bolus IV fluid Intravenous Once ??? bolus IV fluid Intravenous Once ??? bolus IV fluid Intravenous Once ??? piperacillin-tazobactam 3.375 g Intravenous Q6H SANTY ??? vancomycin 1.5 g Intravenous Q12H ??? DISCONTD: ceFAZolin 2 g Intravenous Inspector Floor Sub Assembly to OR ??? DISCONTD: vancomycin 1 g Intravenous Q12H No Known Allergies EXAM: Temp: [35.7 ??C (96.3 ??F)-37.2 ??C (99 ??F)] Heart Rate: [47-80] Resp: [10-19] BP: (104)/(61) SpO2: [91 %-98 %] I/O last 3 completed shifts: In: 31000 [I.V.:86823] Out: 2300 [Urine:1700; Blood:600] I/O this shift: In: 1044 [I.V.:1044] Out: 800 [Urine:800] Physical Exam Constitutional: The patient appears well-developed and well-nourished. Eyes: Pupils are equal, round, and reactive to light. Neck: Normal range of motion. Cardiovascular: Normal rate. Pulmonary/Chest: Effort normal on the ventilator. Musculoskeletal: Normal range of motion. Neurological: The patient is sedated and not arouseable just recently pulled out peripheral IV, andbolused with medication. Skin: Skin is warm. Recent Results (from the past 24 hour(s)) BLOOD GAS ARTERIAL Component Value Range ??? pH Art 7.26 (*) 7.35 - 7.45 ??? pCO2 Art 48 (*) 35 - 45 (mmHg) ??? pO2 Art 70 (*) 85 - 104 (mmHg) ??? HCO3 Art 21.1 20.0 - 26.0 (mmol/L) ??? BE Art -6.2 (*) -3.0 - 3.0 (mmol/L) ??? Hgb Blood Gas 12.4 (*) 13.7 - 17.5 (gm/dL) ??? O2HB Art 91.2 (*) 94.0 - 97.0 (%) ??? COHB Art 1.5 (%) ? ? METHB Art 0.1 <=1.5 (%) ??? Na Whole Blood 138 135 - 145 (mmol/L) ??? K Whole Blood 4.0 3.5 - 5.0 (mmol/L) ??? ICa Whole Blood 1.01 (*) 1.15 - 1.33 (mmol/L) ??? CL Whole Blood 109 (*) 98 - 107 (mmol/L) ??? Gluc Whole Bld 175 60 - 199 (mg/dL) ??? Lactate WB 3.6 (*) 0.5 - 2.2 (mmol/L) ??? FIO2 Art 40 (%) ??? PF Ratio Art 175 POCT GLUCOSE LAB USE ONLY Component Value Range ??? POC Glucose 181 60 - 199 (mg/dL) BLOOD GAS 2 ARTERIAL Component Value Range ??? pH Art 7.29 (*) ??? pCO2 Art 41 (mmHg) ??? pO2 Art 74 (*) (mmHg) ??? HCO3 Art 19.6 (*) (mmol/L) ??? BE Art -6.9 (*) (mmol/L) ??? Hgb Blood Gas 13.0 (*) (gm/dL) ??? O2HB Art 93.2 (*) (%) ??? COHB Art 1.0 (%) ??? METHB Art 0.4 (%) ??? Na Whole Blood 137 (mmol/L) ??? K Whole Blood 4.4 (mmol/L) ??? ICa Whole Blood 1.06 (*) (mmol/L) ??? CL Whole Blood 109 (*) (mmol/L) ??? Gluc Whole Bld 185 (mg/dL) ??? FIO2 Art 40 (%) ??? PF Ratio Art 185 CBC (WITH DIFF) Component Value Range ??? WBC 16.3 (*) 4.0 - 10.0 (x10(3)/mcL) ??? RBC 3.90 (*) 4.63 - 6.08 (x10(6)/mcL) ??? Hemoglobin 12.0 (*) 13.7 - 17.5 (gm/dL) ??? Hematocrit 35.6 (*) 40.0 - 51.0 (%) ??? MCV 91.3 79.0 - 92.0 (fL) ??? MCH 30.8 25.6 - 32.2 (pg) ??? MCHC 33.7 32.0 - 36.5 (gm/dL) ??? Platelets 170 145 - 370 (x10(3)/mcL) ??? RDWSD 40.4 35.0 - 46.0 (fL) ??? RDWCV 12.3 10.9 - 14.4 (%) ??? MPV 10.2 9.0 - 12.0 (fL) LACTIC ACID, PLASMA Component Value Range ??? Lactate 4.5 (*) 0.5 - 2.2 (mmol/L) DIFFERENTIAL, AUTOMATED Component Value Range ??? Neutrophils % 69.5 34.0 - 71.0 (%) ??? Neutr Abs (ANC) 11.34 (*) 1.50 - 6.30 (x10(3)/mcL) ??? Lymphocytes % 19.6 19.0 - 53.0 (%) ??? Lymphocytes Abs 3.2 1.0 - 3.6 (x10(3)/mcL) ??? Monocytes % 9.2 4.0 - 13.0 (%) ??? Monocyte Abs 1.5 (*) 0.2 - 1.0 (x10(3)/mcL) ??? Eosinophils % 1.0 0.0 - 7.0 (%) ??? Eosinophils Abs 0.2 0.0 - 0.5 (x10(3)/mcL) ??? Basophils % 0.3 0.0 - 2.0 (%) ??? Basophils Abs 0.1 0.0 - 0.2 (x10(3)/mcL) ??? Immature Gran % 0.40 0.00 - 0.66 (%) ??? Tonya Gran Abs 0.07 (*) 0.00 - 0.05 (x10(3)/mcL) BLOOD GAS 2 ARTERIAL Component Value Range ??? pH Art 7.37 7.35 - 7.45 ??? pCO2 Art 35 35 - 45 (mmHg) ??? pO2 Art 72 (*) 85 - 104 (mmHg) ??? HCO3 Art 19.6 (*) 20.0 - 26.0 (mmol/L) ??? BE Art -5.8 (*) -3.0 - 3.0 (mmol/L) ??? Hgb Blood Gas 12.0 (*) 13.7 - 17.5 (gm/dL) ??? O2HB Art 93.8 (*) 94.0 - 97.0 (%) ??? COHB Art 0.9 (%) ? ? METHB Art 0.3 <=1.5 (%) ??? Na Whole Blood 137 135 - 145 (mmol/L) ??? K Whole Blood 3.7 3.5 - 5.0 (mmol/L) ??? ICa Whole Blood 1.04 (*) 1.15 - 1.33 (mmol/L) ??? CL Whole Blood 112 (*) 98 - 107 (mmol/L) ??? Gluc Whole Bld 129 60 - 199 (mg/dL) ??? FIO2 Art 40 (%) ??? PF Ratio Art 180 POCT GLUCOSE LAB USE ONLY Component Value Range ??? POC Glucose 129 60 - 199 (mg/dL) LACTIC ACID, PLASMA Component Value Range ??? Lactate 1.8 0.5 - 2.2 (mmol/L) BLOOD GAS 2 ARTERIAL Component Value Range ??? pH Art 7.35 (*) ??? pCO2 Art 39 (mmHg) ??? pO2 Art 66 (*) (mmHg) ??? HCO3 Art 20.8 (mmol/L) ??? BE Art -4.8 (*) (mmol/L) ??? Hgb Blood Gas 12.3 (*) (gm/dL) ??? O2HB Art 92.1 (*) (%) ??? COHB Art 0.8 (%) ??? METHB Art 0.3 (%) ??? Na Whole Blood 137 (mmol/L) ??? K Whole Blood 3.6 (mmol/L) ??? ICa Whole Blood 1.08 (*) (mmol/L) ??? CL Whole Blood 110 (*) (mmol/L) ??? Gluc Whole Bld 152 (mg/dL) ??? FIO2 Art 40 (%) ??? PF Ratio Art 165 CBC (WITH DIFF) Component Value Range ??? WBC 13.3 (*) 4.0 - 10.0 (x10(3)/mcL) ??? RBC 3.80 (*) 4.63 - 6.08 (x10(6)/mcL) ??? Hemoglobin 11.6 (*) 13.7 - 17.5 (gm/dL) ??? Hematocrit 34.7 (*) 40.0 - 51.0 (%) ??? MCV 91.3 79.0 - 92.0 (fL) ??? MCH 30.5 25.6 - 32.2 (pg) ??? MCHC 33.4 32.0 - 36.5 (gm/dL) ??? Platelets 137 (*) 145 - 370 (x10(3)/mcL) ??? RDWSD 41.2 35.0 - 46.0 (fL) ??? RDWCV 12.4 10.9 - 14.4 (%) ??? MPV 10.6 9.0 - 12.0 (fL) BASIC METABOLIC PANEL (NON-FASTING) Component Value Range ??? Glucose Lvl 158 60 - 199 (mg/dL) ??? BUN 12 10 - 20 (mg/dL) ??? Creatinine 1.12 0.80 - 1.50 (mg/dL) ??? Sodium 139 135 - 145 (mmol/L) ??? Potassium 3.7 3.5 - 5.0 (mmol/L) ??? Chloride 109 (*) 98 - 107 (mmol/L) ??? CO2 19 (*) 22 - 31 (mmol/L) ??? Anion Gap 11 5 - 15 (mmol/L) ??? Calcium 7.4 (*) 8.5 - 10.5 (mg/dL) ? ? Estimated GFR >60 >=60 PROTHROMBIN TIME Component Value Range ??? PT 14.8 (*) 12.3 - 14.7 (sec) ??? INR 1.1 0.9 - 1.1 APTT Component Value Range ??? PTT 27 25 - 37 (sec) DIFFERENTIAL, AUTOMATED Component Value Range ??? Neutrophils % 68.3 34.0 - 71.0 (%) ??? Neutr Abs (ANC) 9.11 (*) 1.50 - 6.30 (x10(3)/mcL) ??? Lymphocytes % 21.2 19.0 - 53.0 (%) ??? Lymphocytes Abs 2.8 1.0 - 3.6 (x10(3)/mcL) ??? Monocytes % 7.9 4.0 - 13.0 (%) ??? Monocyte Abs 1.1 (*) 0.2 - 1.0 (x10(3)/mcL) ??? Eosinophils % 2.1 0.0 - 7.0 (%) ??? Eosinophils Abs 0.3 0.0 - 0.5 (x10(3)/mcL) ??? Basophils % 0.2 0.0 - 2.0 (%) ??? Basophils Abs 0.0 0.0 - 0.2 (x10(3)/mcL) ??? Immature Gran % 0.30 0.00 - 0.66 (%) ??? Tonya Gran Abs 0.04 0.00 - 0.05 (x10(3)/mcL) BLOOD GAS 2 ARTERIAL Component Value Range ??? pH Art 7.36 ??? pCO2 Art 36 (mmHg) ??? pO2 Art 71 (*) (mmHg) ??? HCO3 Art 19.9 (*) (mmol/L) ??? BE Art -5.6 (*) (mmol/L) ??? Hgb Blood Gas 12.1 (*) (gm/dL) ??? O2HB Art 93.6 (*) (%) ??? COHB Art 0.7 (%) ??? METHB Art 0.4 (%) ??? Na Whole Blood 136 (mmol/L) ??? K Whole Blood 3.5 (mmol/L) ??? ICa Whole Blood 1.08 (*) (mmol/L) ??? CL Whole Blood 111 (*) (mmol/L) ??? Gluc Whole Bld 150 (mg/dL) ??? FIO2 Art 40 (%) ??? PF Ratio Art 178 LACTIC ACID, PLASMA Component Value Range ??? Lactate 2.3 (*) 0.5 - 2.2 (mmol/L) Is this patient critically ill? Is there a high potential of sudden, clinically significant, or life threatening deterioration? Yes Is there a need for direct personal assessment and management to treat/prevent multiple vital organfailure/deterioration? Yes Patient is critically ill with these diagnoses being managed by the CCS Team ARDS PA Catheter Hyponatremia Hypoxemic Resp Failure Cardiogenic Shock Hypernatremia Pneumonia req Ventilator Acute Myocardial Infarction Hyperkalemia Hypercarbic Resp Failure Subarachnoid Hemorrhage Acute Drug Ingestion / OD Respiratory Acidosis Traumatic Brain Injury Acute Renal Failure Acute Resp Failure Coma Acute Liver Failure X Metabolic Acidosis Stupor Thrombocytopenia X Hypotension, Fluids Delirium Neutropenia X Hypotension, Pressors Acute Encephalopathy Hypertensive Emergency Sepsis Ascites Req Treatment Malnutrition Septic Shock with SIRS Coagulopathy Req Treatment Anaphylaxis Active Hemorrhage Slightly rising lactate today despite resuscitation post op. By PPV patient appears not be fluid responsive. Watch for possible bowel ischemia vs. Spurious trend. Patient is on propofol doubt propofol infusion syndrome. Will trend lactates. Avoid diuresis. Off vasopressor agents. Precedex in attempt to wean vent for extubation unless rising acidosis. TIME spent on the unit (excluding procedures) 12 Minutes during rounds, including bedside examination 8 Minutes reviewing laboratory data and radiographic images 12 Minutes preparing documentation 32 Minutes total critical care time * Nenita Brown MD - 04/13/2011 11:55 AM EST General Surgery Progress Note Cali Thompson is a 75 y.o. male day 1 s/p EVAR for a symptomatic AAA. Patient came out of OR intubated and sedated, hypotensive intraoperatively requiring significant resuscitation. On 70 of venu at the end of the case. Weaned off venu overnight with downtrending lactate(4.5 to 2.3). Last value Range last 24hrs Temperature Temp: 37.2 ??C (99 ??F) Temp: [35.7 ??C (96.3 ??F)-37.2 ??C (99 ??F)] Heart Rate Heart Rate: 53 Heart Rate: [47-80] Blood Pressure BP: 104/61 mmHg BP: (95-104)/(53-61) Respiratory Rate Resp: 14 Resp: [10-20] SpO2 SpO2: 97 % SpO2: [91 %-98 %] SIMV/PS [id number] PEEP 5 FiO2 40% Last ABG 7.36/35/70/19 Intake/Output Summary (Last 24 hours) at 04/13/11 1155 Last data filed at 04/13/11 1000 Gross per 24 hour Intake 47782 ml Output 2775 ml Net 9784 ml Gen: Intubated and sedated, opens eyes to loud voice Cardio: RRR Pulm: Referred mechanical ventilator noise. Otherwise clear anteriorly ABD: s/nd/nt : Urinary catheter with clear urine in bag Ext: WWP. Palpable DP/PT bilaterally. Groin incisions with c/d/i dressing, no evidence of hematoma. Lines: PIV x 2 Recent Labs Basename 04/13/11 0400 04/12/11 1725 04/12/11 1455 04/12/11 0715 ??? WBC 13.3* 16.3* -- 15.2* ??? HGB 11.6* 12.0* -- 16.2 ??? HCT 34.7* 35.6* -- 45.3 ??? PLATELET 137* 170 -- 251 ??? PT 14.8* -- 15.8* 13.2 ??? INR 1.1 -- 1.2* 1.0 ??? PTT 27 -- 32 28 Recent Labs Basename 04/13/11 0400 04/12/11 1455 04/12/11 0715 ??? NA 139 139 137 ??? K 3.7 4.2 3.9 ??? CL 109* 109* 100 ??? CO2 19* 20* 22 ??? BUN 12 13 14 ??? CREATININE 1.12 1.03 0.98 ??? GLUCOSE 158 189 299* ??? CALCIUM 7.4* 6.8* -- ??? MAGNESIUM -- 0.54* -- ??? PHOS -- 4.6* -- A/P: s/p EVAR for symptomatic AAA. Taken to ICU post-op intubated and sedated - gradually weaned off pressors with downtrending lactate. May require vent today as he is 10L+ positive over the last 24hours. -fent 50/prop 40 -hypotension resolving, off pressors, will start ASA. Continue to trend lactate -vent wean as tolerated, following ABGs -NPO -UOP adequate, lytes/Cr acceptable, would heplock if lactate continues to trend down -vanc/zosyn for superimposed diverticulitis -Care per ICU team - page vascular surgery fellow for any major changes * Jennifer Montalvo RCP - 04/13/2011 4:35 AM EST ET TUBE pulled back 2 cm per cxr now taped @ 23 teeth * Jia Victoria PharmD - 04/12/2011 10:50 PM EST Clinical Pharmacist Note-Vanc Cali Thompson [id number] Cali Thompson is a 75 y.o. male who is starting antibiotic therapy which includes intravenous vancomycin. Today is day 0 of treatment. Based on a review of the patient???s chart and/or conversation with the patient???s providers vancomycin is being used for empiric coverage with a targeted goal ofaround 15 mg/L. The following Pharmacokinetic data has been evaluated: Wt Readings from Last 1 Encounters: 04/12/11 102.059 kg (225 lb) Ht Readings from Last 1 Encounters: 04/12/11 177.8 cm (5' 10) No results found for this basename: JOSÉ ANTONIO Creatinine (mg/dL) Date Value 04/12/2011 1.03 Estimated GFR: 75.3 ml/min (based on Cr of 1.03). (Cockcroft & Gault calculation) After a review of this information the following pharmacokinetic parameters have been estimated: Half-Life (T1/2) = 7.7 hours Elimination rate (Ke) = 0.09 hr-1 Volume of distribution (Vd) = 66.3 Liters Dosing recommendations: Based on this information a dose of 1500 mg every 12 hours, to start now should achieve an estimated trough level of around 15 mg/L. Monitoring recommendations: A new steady state level should be achieved after 4 half-lives. I suggest rechecking a vancomycin trough level (30 minutes prior to a scheduled dose) at 1030 (time) on 04/14/2011. We will continue to monitor the patient as long as he/she remains on vancomycin therapy. Please watch SCr, BUN and fluid status closely. Please page the care area pharmacist with any questions you may have. Alternately, during off-hours you may call [phone] to contact a pharmacist. JIA VICTORIA PHARMD Pager [phone] * Chris Johnson - 04/12/2011 8:28 PM EST General Surgery Post-Operative Note Cali Thompson is a 75 y.o. male is s/p EVAR for a symptomatic AAA. Patient came out of OR intubated and sedated. Hypotension and acidosis intra-op. On 70 of venu at the end of the case. Last value Range last 24hrs Temperature Temp: 36.4 ??C (97.5 ??F) Temp: [35.7 ??C (96.3 ??F)-36.6 ??C (97.9 ??F)] Heart Rate Heart Rate: 53 Heart Rate: [47-78] Blood Pressure BP: 104/61 mmHg BP: (95-174)/(53-98) Respiratory Rate Resp: 14 Resp: [10-22] SpO2 SpO2: 98 % SpO2: [91 %-98 %] Intake/Output Summary (Last 24 hours) at 04/12/112028 Last data filed at 04/12/11 194 Gross per 24 hour Intake 16568 ml Output 1755 ml Net 8949 ml Recent Labs Basename 04/12/11 1725 04/12/11 1455 04/12/11 0715 ??? WBC 16.3* -- 15.2* ??? HGB 12.0* -- 16.2 ??? HCT 35.6* -- 45.3 ??? PLATELET 170 -- 251 ??? PT -- 15.8* 13.2 ??? INR -- 1.2* 1.0 ??? PTT -- 32 28 Recent Labs Basename 04/12/11 1455 04/12/11 0715 ??? NA 139 137 ??? K 4.2 3.9 ??? CL 109* 100 ??? CO2 20* 22 ??? BUN 13 14 ??? CREATININE 1.03 0.98 ??? GLUCOSE 189 299* ??? CALCIUM 6.8* -- ??? MAGNESIUM 0.54* -- ??? PHOS 4.6* -- ABG (Arterial Blood Gas) Lab Results Component Value Date pH Art 7.26* 04/12/2011 pH Art 7.38 04/12/2011 pO2 Art 70* 04/12/2011 pO2 Art 96 04/12/2011 pCO2 Art 48* 04/12/2011 pCO2 Art 35 04/12/2011 Last Lactate 4.5 Gen: Intubated and sedated Cardio: RRR Pulm: Referred mechanical ventilator noise. Otherwise clear anteriorly ABD: s/nd/nt : Urinary catheter with clear urine in bag Ext: WWP. Palpable DP/PT bilaterally. Groin incisions with c/d/i dressing, no evidence of hematoma. Lines: PIV x 2 A/P: s/p EVAR for symptomatic AAA. Taken to ICU post-op intubated and sedated on 70 of Venu. He has subsequently been weaned to 20 of venu for a goal SBP of 100. His lactate is elevated. -Admit to ICU -Aggressive fluid recessitation, patient may require central access -Trend lactates and ABG (CVG's if central line is placed) -Wean pressors as tolerated -Serial exams (abdomen and extremity pulses) -Care per ICU team - page vascular surgery fellow for any major changes * Estela Flores RCP - 04/12/2011 4:25 PM EST Patient received on noted settings. ABG drawn 7.26,48,70. RR increased to 14. ETT moved every four hours, no breakdown. * Veronique Estrada MD - 04/12/2011 8:08 AM EST H&P: CC: AAA HPI: History obtained from review of records here and from patient 75 yo male with no prior known history of AAA presented to OSH with 12 hours of abdominal pain. Abdominal pain radiates to low back, constant. Patient states that he has had some nausea, no vomiting,+burping. Last BM yesterday morning, no blood or diarrhea. PMH/PSH: HTN NIDDM Umbilical hernia repair Meds: Metformin 500 bid Enalapril 5 qd Zocor 20 qhs Diltiazem SR 420 qd No Known Allergies PE: Last value Range last 12 hrs Temperature Temp: 36.6 ??C (97.9 ??F) Temp: [36.6 ??C (97.9 ??F)] Heart Rate Heart Rate: 67 Heart Rate: [64-78] Blood Pressure BP: 118/63 mmHg BP: (118-174)/(63-98) Respiratory Rate Resp: 16 Resp: [16-22] SpO2 SpO2: 96 % SpO2: [91 %-97 %] 2L Alert, oriented rrr Coarse bs Distended, soft, nontender. No rebound or guarding. Small, well-healed infraumbilical scar warm CBC Lab Results Component Value Date WBC 15.2* 04/12/2011 Hemoglobin 16.2 04/12/2011 Hematocrit 45.3 04/12/2011 Platelets 251 04/12/2011 Lab Results Component Value Date Sodium 137 04/12/2011 Potassium 3.9 04/12/2011 Chloride 100 04/12/2011 CO2 22 04/12/2011 BUN 14 04/12/2011 Creatinine 0.98 04/12/2011 Glucose Lvl 299* 04/12/2011 Recent Labs Basename 04/12/11 0715 ??? PT 13.2 ??? PTT 28 ??? INR 1.0 CT A/P (per Dr Vail's note; image not available): 5.0 cm saccular aneurysm with stranding anteriorly. Double calcium shadow in this region suggestiveof recent expansion. No evidence of rupture or periaortic hematoma. Neck is 28->30 mm, adequate length 25mm. Right renal artery lowest with a focal bleb at the takeoff. Bilateral CIAs calcified but non-stenotic. Minimal A/P: Symptomatic AAA, admit to ICU prior to OR (endovascular repair) for bp control. Booked for second case. Neuro: Dilaudid prn for pain CV: A-line placed in ED by Vascular attending Maintain sbp<120. Will start with labetalol, may need to add esmolol/nicardipine Pulm: Stable GI: NPO Nexium /FENK: Gentle hydration Monitor uop Heme: No ac Endo: Will need ssi given hx of diabetes ID: No need for abx at present (periop ancef ordered) Dispo: ICU-->OR * Erik Gill MD - 04/12/2011 8:08 AM EST [facility] staff procedure note: Under sterile cond RIGHT radial a-line placed for hemodynamic monitoring. Hand intact, excellent waveform. documented in this encounter H&P Notes * Poli Chowdhury MD - 04/12/2011 8:22 AM EST Cali Thompson [id number] 04/12/2011 04/12/2011 7:04 AM Critical Care Medicine Attending Inpatient Progress Note Author: POLI CHOWDHURY MD Patient seen and examined on critical care rounds. Cali Thompson is a 75 y.o. male with the following active issues:: ASSESSMENT, MANAGEMENT, and DECISION MAKING: Symptomatic leaking AAA. Patient Active Problem List Diagnoses Code ??? AAA (abdominal aortic aneurysm) 441.4L ??? HTN (hypertension) 401.9AF ??? NIDDM (non-insulin dependent diabetes mellitus) 250.00AQ ??? S/P hernia repair V45.89DR Past Medical History Diagnosis Date ??? AAA (abdominal aortic aneurysm) 04/12/2011 ??? HTN (hypertension) 04/12/2011 ??? NIDDM (non-insulin dependent diabetes mellitus) 04/12/2011 ??? S/P hernia repair 04/12/2011 24 Hour Events Transferred with 5 cm leaking AAA (symptomatic) From ED to ICU care to OR for endovascular procedure. Hemodynamically stable in the ED. Arterial line placed. ??? PHENYLephrine (VENU-SYNEPHRINE) 20 mg in sodium chloride 250 mL infusion 10- 180 mcg/min Intravenous Continuous ### ??? lactated ringers infusion 100 mL/hr Intravenous Continuous ### ??? fentaNYL 2500mcg/50mL infusion 0-150 mcg/hr Intravenous Continuous ### ??? propofol (DIPRIVAN) infusion 5-50 mcg/kg/min Intravenous Continuous ### ??? DISCONTD: sodium chloride 0.9% infusion 100 mL/hr Intravenous Continuous ### ??? esomeprazole 40 mg Oral Daily ??? esomeprazole 40 mg Intravenous Daily ??? hydrALAZINE 10 mg Intravenous Once ??? insulin aspart 1-4 Units Subcutaneous 4 Times Daily ??? bolus IV fluid Intravenous Once ??? bolus IV fluid Intravenous Once ??? DISCONTD: ceFAZolin 2 g Intravenous Inspector Floor Sub Assembly to OR No Known Allergies EXAM: Temp: [36.3 ??C (97.3 ??F)-36.6 ??C (97.9 ??F)] Heart Rate: [48-78] Resp: [10-22] BP: (95-174)/(53-98) SpO2: [91 %-98 %] I/O this shift: In: 8000 [I.V.:8000] Out: 1350 [Urine:750; Blood:600] Physical Exam Constitutional: The patient appears well-developed and well-nourished. Eyes: Pupils are equal, round, and reactive to light. Neck: Normal range of motion. Cardiovascular: Normal rate. Pulmonary/Chest: Effort normal. Musculoskeletal: Normal range of motion. Neurological: The patient is alert. Skin: Skin is warm. Is this patient critically ill? Is there a high potential of sudden, clinically significant, or life threatening deterioration? Yes Is there a need for direct personal assessment and management to treat/prevent multiple vital organfailure/deterioration? Yes Patient is critically ill with these diagnoses being managed by the CCS Team ARDS PA Catheter Hyponatremia Hypoxemic Resp Failure Cardiogenic Shock Hypernatremia Pneumonia req Ventilator Acute Myocardial Infarction Hyperkalemia Hypercarbic Resp Failure Subarachnoid Hemorrhage Acute Drug Ingestion / OD Respiratory Acidosis Traumatic Brain Injury Acute Renal Failure Acute Resp Failure Coma Acute Liver Failure Metabolic Acidosis Stupor Thrombocytopenia Hypotension, Fluids Delirium Neutropenia Hypotension, Pressors Acute Encephalopathy Hypertensive Emergency Sepsis Ascites Req Treatment Malnutrition Septic Shock with SIRS Coagulopathy Req Treatment Anaphylaxis X Active Hemorrhage Arterial line placed in the ED. Strict BP control <120 SBP. Beta blockers and afterload reduction as appropriate for Dp/Dt. Good IV access. Type and screen available. To OR for second case today. TIME spent on the unit (excluding procedures) 12 Minutes during rounds, including bedside examination 8 Minutes reviewing laboratory data and radiographic images 12 Minutes preparing documentation 32 Minutes total critical care time * Erik Gill MD - 04/12/2011 7:34 AM EST CC: Abdominal pain HPI: 75 yo male with no prior known history of AAA, presents to [facility] with c/o abdominal pain for 12hours. Described as low quadrant abdominal pain radiating around to low back. No nausea or vomiting, but recent onset of burping. No change in bowel habits, last BM yesterday morning. PMH: HTN NIDDM Umbilical hernia repair Meds: Metformin 500 bid Enalapril 5 qd Zocor 20 qhs Diltiazem SR 420 qd All: NKDA Physical: BP 174/98 Pulse 78 Temp(Src) 36.6 ??C (97.9 ??F) (Oral) Resp 22 SpO2 95% Chest clear Cardiac exam regular Abdomen obese, protuberant, soft, NT, ND Ext: WNL, palpable femoral and pedal pulses Labs: (OSH) U/A (-) 10.6 / 16.0 / 207 140 / 3.7 / 106 / 24 / 18 / 1.1 / 260 Studies: CT A/P with po and iv: 5.0 cm saccular aneurysm with stranding anteriorly. Double calcium shadow inthis region suggestive of recent expansion. No evidence of rupture or periaortic hematoma. Neck is 28->30 mm, adequate length 25mm. Right renal artery lowest with a focal bleb at the takeoff. Bilateral CIAs calcified but non-stenotic. Minimal EIA diameter 11 mm. Both CFAs with mild posterior wall plaque, diameters 11mm. Mild sigmoid diverticulitis. A/P: Symptomatic infrarenal aortic aneurysm. Not ruptured presently, but at impending risk. - Admit to ICU - Aggressive BP control, target SBP<120 - pain control - A line placement - Plan for OR urgently once medically optimized, endovascular graft candidate [facility] Staff: I saw and evaluated Mr. Thompson in the ER. Pleasant 75 year old male with 7cm saccular aneurysm, abd/back pain, and stranding on CT scan around the aneurysm. He arrived awake, alert, and interactive, with SBP 160's. Exam remarkable for mild abd tenderness, palp femoral pulses bilaterally, and prominent popliteals bilaterally. CT scan reveals acceptable anatomy for endovascular repair. I reviewed therisks and benefits with him and he wishes to proceed. My partner Dr. Borges will perform his repair expeditously when our endovascular suite becomes available. I spent 90 min in coord of care. 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 Vascular surgery taking care of this patient. My brief exam was overall unremarkable but did not examine the abdomen. Plan is for patient to go to the operating room. He remained stable while in the emergency department. Robyn Fowler MD 04/14/11 0520 * Cristian Byers RN - 04/12/2011 10:46 AM EST Anesthesia in to speak with pt at this time. * Cristian Byers RN - 04/12/2011 10:33 AM EST Pt resting on stretcher, eyes closed, respirations noted. Will continue to monitor. * Cristian Byers RN - 04/12/2011 9:[address] Gill in to evaluate pt at this time. documented in this encounter Miscellaneous Notes * Miscellaneous - Provider, Scanning - 04/17/2011 11:15 AM EST * Miscellaneous - Provider, Scanning - 04/17/2011 11:15 AM EST * Miscellaneous - Provider, Scanning - 04/17/2011 11:15 AM EST * Miscellaneous - Provider, Scanning - 04/17/2011 11:15 AM EST * Miscellaneous - Provider, Scanning - 04/16/2011 3:58 PM EST * Miscellaneous - Provider, Scanning - 04/16/2011 3:58 PM EST * Plan of Care - Leandra Monreal RN - 04/16/2011 11:39 AM EST Problem: Skin Integrity Impairment, Risk/Actual (Adult, Obstetric) Goal: Skin Integrity Impairment, Risk/Actual: Skin Integrity/Wound Healing Outcome: Absent and monitoring Skin surveillance continued. Encouraged hand hygiene. Pt independently mobilizing and repositioningwhile in bed. Continue to monitor for changes in status. Problem: Pain, Acute (Adult, Obstetric) Goal: Acute Pain: Acceptable Pain Control/Comfort Level - Pain, Acute (Adult, Obstetric) Outcome: Present (see interventions, notes) Pain appears to be well controlled with current pain regimen. Encouraged to notify staffing mgr when inneed of pain medication. Continue to monitor for changes in status. Problem: Trauma/Injury Risk (Adult, Obstetric) Goal: Trauma/Injury Risk: Absence of Trauma/Injury/Falls Outcome: Absent and monitoring Call montanez within reach. Bed in low position and locked. Encouraged to call for assistance with mobilization. Continue to monitor. * Plan of Care - Ginny Britton RN - 04/12/2011 8:32 PM EST Problem: Skin Integrity Impairment, Risk/Actual (Adult, Obstetric) Goal: Skin Integrity Impairment, Risk/Actual: Skin Integrity/Wound Healing Pt admitted s/p AAA repair. Bilateral groin incision dressings clean, dry and intact. Soft to palpation. Mepilex on sacrum. Repositioned Q 2 hours. Will con't to monitor. Problem: Pain, Acute (Adult, Obstetric) Goal: Acute Pain: Acceptable Pain Control/Comfort Level - Pain, Acute (Adult, Obstetric) Pt admitted s/p AAA repair. Currently, non verbal pain scale 0. On fentanyl gtt. With painful stimulation, pt grimaces and weakly lifts arms, non-aggressively. Will con't to monitor. Problem: Trauma/Injury Risk (Adult, Obstetric) Goal: Trauma/Injury Risk: Absence of Trauma/Injury/Falls Pt admitted s/p AAA repair. Side rails up. Pt sedated and intubated. Will con't to monitor. * Op Note - Joan Vail - 04/12/2011 4:41 PM EST [facility] [place] Operative Note Patient Name: Cali Thompson : [id number] MR#: [id number] Case Date: 04/12/2011 Surgeon: Surgeon(s) and Role: * STEVEN BORGES MD - Primary * JOAN VAIL MD - Fellow Preoperative diagnosis: symptomatic infrarenal aortic aneurysm Postoperative diagnosis: same Procedure(s): Bilateral femoral arterial exposures Endovascular repair of aortic aneurysm, using PeopleCube Flex [id number]-[id number]-[id number] via right; ipsilateralextension with TFLE 16-56; contralateral extension with TFLE 16-73 Anesthesia: General Estimated Blood Loss: 600 IVF: 3800 UOP: 150 Dye: 63 mL Visipaque Fluoro: 22.1 mins Indications for Procedure: Mr. Thompson is a 75-year-old male with no known prior history of abdominal aortic aneurysm who presented to an outside hospital with acute abdominal and back pain. A CT scan demonstrated signs of periaortic inflammation and recent expansion. He is taken to the Operating Room today for prophylactic repair on an urgent basis. Description of Procedure: Mr. Thompson was brought to the Operating Room and placed supine upon the operating room table. General anesthesia was induced without complication. Once he was asleep a Brooke catheter was placed. Appropriate intravenous and radial arterial access was established. He was given prophylactic antibiotics. His abdominal wall and both groins were prepped and draped in typical sterile fashion. When we were ready to proceed, a time-out was conducted with the attending present including the name of the patient, indications for procedure, and planned operative course. When we were all in agreement we began the case. We performed oblique groin incisions on both sides and came down through the soft tissue onto the anterior aspect of the common femoral arteries. These vessels were controlled with vessel loops proximally and distally. We then punctured both common femoral arteries in retrograde fashion using needles and advanced J wires up into the infrarenal aorta. On the right side this was changed from a J wire to a long Adi wire using a Kumpe catheter. This wire was advanced to the aortic bifurcation. The patient was then heparinized. A pigtail catheter was advanced up the left side and used to perform aortography, which demonstrated anatomy as expected from preoperative imaging. The patient had single renals bilaterally and had patent hypogastrics on both sides. At this point on the right we advanced a [employer] device type [id number]-15-70-[id number], and this was advanced up to the level of the aorta just below the renals. We then deployed this device such that the top of the fabric was just below the right renal, that being the lowest renal, and continued until the contralateral gate was opened. Then on the left side we used a Vanshee catheter along with a nimble Talha wire to cannulate the gate and then advanced the catheter up into the device. We performed angiography, which demonstrated that the catheter was indeed within the contralateral gate, and we were quite satisfied with this cannulation. We then advanced a stiff Adi wire up through the Vanshee catheter into the thoracic aorta. We next removed the Vanshee as well as the left-sided sheath and advanced the contralateral limb, that being a TFLE-16-73. This was advanced until there was one stent of overlap with the main body and then deployed this with excellent positioning. We had performed angiography prior to this maneuver in order to delineate the location of the hypogastric, and thus we were certain that the limb at the deployment location was not caging the left hypogastric. After this was done the delivery system was removed, and a 12-Hungarian [place] dry seal was advanced. On the right side, we proceeded to complete deployment of the ipsilateral limb, and we then removed the introducer from the sheath and then advanced a TFLE-16-56 through this larger sheath and advanced it until the ipsilateral limb was positioned with two stents of overlap with the main device. We then deployed this excellent positioning. We had also performed retrograde angiography on this side demonstrating the location of the hypogastric, and so we were sure that this limb did not cover the hypogastric on the right. Our position was excellent. We removed the delivery system and advanced a 20-Hungarian [place] dry seal up the right side. We then advanced Reliant balloons up both sides and ballooned both the proximal seal zone as well as all the overlaps and the outflow seal zones. When this was done we advanced a pigtail at the left side and performed angiography, which demonstrated patent renals on both sides, no evidence of type 1, 2, or 3 endoleak, and patent hypogastrics on both sides. We were satisfied with this. We then removed sheath and wire access from both sides and clamped inflow with Farley Dean clamps as well as outflow with angled ductus clamps. Both puncture sites were closed using 5-0 Prolene in running fashion. When this was complete, the clamps were removed, and we had palpable pulses in both groins. Doppler pencils were used to auscultate, and there was no step-up along the puncture site closures. There were also palpable pedal pulses on both sides. We then closed both groins after giving protamine using interrupted 3-0 Vicryl pops followed by 4-0 Monocryl for skin, Dermabond, 4 x 4's, and Tegaderms. The patient at the end of the case was hemodynamically stable on a low dose of Venu-Synephrine. However, the patient did have a metabolic acidosis of unclear etiology. The patient was taken to the ICU intubated condition for treatment of this. There were no complications at the time of the procedure. * Brief Op Note - Joan Vail - 04/12/2011 4:30 PM EST Brief Operative Note Patient Name: Cali Thompson : [id number] MR#: [id number] Case Date: 04/12/2011 Surgeon: Surgeon(s) and Role: * STEVEN BORGES MD - Primary * JOAN VAIL MD - Fellow Preoperative diagnosis: symptomatic infrarenal aortic aneurysm Postoperative diagnosis: same Procedure(s): Bilateral femoral arterial exposures Endovascular repair of aortic aneurysm, using [employer] Flex [id number] via right; ipsilateralextension with TFLE 16-56; contralateral extension with TFLE 16-73 Anesthesia: General Estimated Blood Loss: 600 IVF: 3800 UOP: 150 Dye: 63 mL Visipaque Fluoro: 22.1 mins Disposition: taken directly to the ICU, intubated and in a critical condition. Condition: doing well without problems Findings: Anatomy as expected from pre-op scan. Single renals bilaterally. Excellent endograft positioning. At case completion, preserved flow through both renals and both hypogastrics. No type I, II or III endoleak. Palpable pedal pulses at case end. ABG at case end 7., unexplained metabolic acidosis. Kept intubated to ICU. Plan: - aggressive fluid resuscitation - serial lactates, ABGs - pulse checks * Discharge Summary - Chris Johnson - 04/12/2011 4:00 PM EST Inpatient - Discharge Summary Patient Name: Cali Thompson Patient Age: 75 y.o. Birthdate: 1935 Admit date: 04/12/2011 Discharge date and time: 04/16/2011 Attending Physician: Steven Borges MD. Discharge Diagnoses (Hospital Problems) and Secondary Diagnoses (Chronic Problems): Active Hospital Problems Diagnoses ??? 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 HTN (hypertension) ??? NIDDM (non-insulin dependent diabetes mellitus) ??? S/P hernia repair Operations/Major Procedures: 04/12/11: Bilateral femoral arterial exposures Endovascular repair of aortic aneurysm, using People[employer]ube Flex [id number] via right; ipsilateralextension with TFLE 16-56; contralateral extension with TFLE 16-73 History of Presentation: 75 year old male without prior known history of AAA, presented to [facility] with complaints of abdominal pain for 12 hours. Described as low quadrant abdominal pain radiating around to low back. No nausea or vomiting, but recent onset of burping. No change in bowel habits, last BM was the previous morning. Hospital Course: Taken urgently to surgery where the anatomy was as expected from pre-op scan. Single renals bilaterally. Excellent endograft positioning. At case completion, preserved flow through both renals and both hypogastrics. No type I, II or III endoleak. Palpable pedal pulses at case end. ABG at case end 7.20 / / 72 / 16, unexplained metabolic acidosis. Kept intubated to ICU. On Venu initially and extubated the next day. Lactate normalized within 24 hours. Palpable DP and PT. WBC elevated but slowly returning to normal. Kept on Vanc and Zosyn for superimposed diverticulitis and some loose stools, will discharge on a one week course of oral Cipro and Flaygl Blood pressure elevated during this admission, increased home Vasotec dose from 5 mg to 10 mg and patient will see PCP on 04/22 to follow up on labs and blood pressure. At discharge WBC 11.4, Hgb 12.5, Cr 1.13 Discharge Condition: Stable Discharge to: Home Discharge Medications: Current Discharge Medication List New Meds Details acetaminophen (TYLENOL) 650 mg Take 650 mg by mouth every 4 hours as needed for Pain. Qty: 30 tablet Refills: aspirin 81 mg Take 81 mg by mouth daily. Qty: 30 tablet Refills: ciprofloxacin (CIPRO) 500 mg Take 500 mg by mouth 2 times daily. Qty: 14 tablet Refills: 0 metroNIDAZOLE (FLAGYL) 500 mg Take 500 mg by mouth 3 times daily. Qty: 21 tablet Refills: 0 HYDROmorphone (DILAUDID) 2 mg Take 2 mg by mouth every 4 hours as needed for Pain. Qty: 20 tablet Refills: 0 Continued medications with revised dosing Details enalapril (VASOTEC) 10 mg Take 10 mg by mouth daily. Qty: 30 tablet Refills: Continued medications, unchanged Details metFORMIN (GLUCOPHAGE) 500 mg Take 500 mg by mouth 2 times daily (with meals). Qty: Refills: simvastatin (ZOCOR) 20 mg Take 20 mg by mouth nightly. Qty: Refills: DILTiazem (DILACOR XR) 240 mg Take 240 mg by mouth daily. Qty: Refills: Updated Allergies/ADRs: No Known Allergies Instructions Given to Patient at Discharge: Provider Instructions You were admitted on 04/12/11 for an urgent repair of your large abdominal aortic aneurysm. This went very well with a repair by an endograft. Dr. Borges will want to see you in approximately one monthwith a 3D CT scan first. These appointments will be scheduled and sent to you in the mail. Please call our office if you don't receive this as your follow up is important to us. Your blood pressure was elevated in the hospital and we increased your Vasotec dose from 5 mg to 10mg daily. We have scheduled an appointment on Sunday 04/22 at 1pm with your PCP office (Viviana Aj NP) to follow up on your blood pressure and further medication dosing and to have your blood drawn to recheck your labs. Call your doctor if: Any back or abdominal pain Activity level: Up as tolerated Diet: No concentrated sweets Driving: None for now Shower/Bath: Ok to shower Wound Care: Ok to remove dressings on 04/17 then no need to cover For any problems or questions please call [phone] Angela Mujica RN Vascular Nurse Clinician Loretta Matthews RN Vascular Nurse Clinician Future Appointments and Orders Future Orders Please Complete By Expires CT abdomen & pelvis with contrast [[id number] Custom] 05/13/11 04/12/12 Process Instructions: Scheduling Instructions: Comments: Schedule with Dr. Borges the same day in clinic Questions: Responses: Reason for exam and clinical history: s/p endograft repair of AAA Other pertinent information: pls use 3D M2S formatting Does patient require sedation? Stat read required? GA rationale: Where will study be performed? [facility] Should this service/procedure be billed to the research sponsor? Requested Time Date of injury if applicable: * ED Triage - Cristian Byers RN - 04/12/2011 7:19 AM EST Pt arrives to the ED as a transfer from [facility] for vascular with a dx of AAA. Pt states that around 2200 last night he developed a sudden onset of back pain/pressure. CT found a AAA, abdomen large and distended. Upon arrival to the ED pt appears in NAD, alert and oriented x3, skinwarm, pale and dry, mm moist, abdomen large + BS x 4 quadrants, distention noted. Vasc Surgery MD at bedside upon pt arrival. Pt placed on youth nutritional monitor, labs obtained and sent. Pt c/o having to urinate, unable to do so, when bladder scanned found to have 962 ml in bladder, brooke catheter inserted at this time with relief from the abdominal pressure noted by pt. * OR Attestation - Steven Borges MD - 04/12/2011 12:00 AM EST Attestation: Case Date: 04/12/2011 I was present for and participated in this entire case STEVEN BORGES MD 04/15/2011 documented in this encounter Plan of Treatment Upcoming Encounters Date Type Department Care Team (Latest Contact Info) Description 01/02/2024 1:30 PM EDT Laboratory Appointment Lab [address] [address] 01/02/2024 3:00 PM EDT Office Visit [place] [address] Adam Costa MD [facility] [place] [address] documented as of this encounter Procedures Procedure Name Priority Date/Time Associated Diagnosis Comments EXPOSURE, FABIANA.,OPEN FEM. ARTERY DURING ENDOVASCULAR REPAIR Routine 04/17/2011 11:[address] EX[address] EVG INTRARENAL AORTIC\ILIAC ARTERY ANEURYSM, S&I Routine 04/17/2011 11:32 AM EST EVG, INFRARENAL AAA OR DISSECTION, S&I Routine 04/17/2011 11:32 AM EST EVG, AAA, W\ MODULAR BIFURCATED PROS. W\ 2 DOCKING LIMBS Routine 04/17/2011 11:32 AM EST IMPLANTABLE DEVICES SCAN 04/17/2011 11:15 AM EST CYLINDER DIE MACHINE HELPER SCAN 04/17/2011 11:15 AM EST POCT GLUCOSE Routine 04/16/2011 10:58 AM EST POCT GLUCOSE Routine 04/16/2011 7:21 AM EST DIFFERENTIAL, AUTOMATED Routine 04/16/2011 6:08 AM EST CBC (WITH DIFF) Routine 04/16/2011 6:08 AM EST BASIC METABOLIC PANEL Routine 04/16/2011 6:08 AM EST POCT GLUCOSE Routine 04/15/2011 8:59 PM EST POCT GLUCOSE Routine 04/15/2011 4:07 PM EST POCT GLUCOSE Routine 04/15/2011 12:46 PM EST POCT GLUCOSE Routine 04/15/2011 8:34 AM EST DIFFERENTIAL, AUTOMATED STAT 04/15/2011 6:05 AM EST CBC (WITH DIFF) STAT 04/15/2011 6:05 AM EST BASIC METABOLIC PANEL STAT 04/15/2011 6:05 AM EST POTASSIUM Routine 04/15/2011 4:30 AM EST POCT GLUCOSE Routine 04/14/2011 8:46 PM EST POCT GLUCOSE Routine 04/14/2011 5:36 PM EST POCT GLUCOSE Routine 04/14/2011 1:31 PM EST VANCOMYCIN, TROUGH Routine 04/14/2011 10 :30 AM EST POCT GLUCOSE Routine 04/14/2011 8:17 AM EST DIFFERENTIAL, AUTOMATED STAT 04/14/2011 8:00 AM EST CBC (WITH DIFF) STAT 04/14/2011 8:00 AM EST LACTATE, PLASMA STAT 04/14/2011 8:00 AM EST BASIC METABOLIC PANEL STAT 04/14/2011 8:00 AM EST POTASSIUM Routine 04/13/2011 9:47 PM EST POCT GLUCOSE Routine 04/13/2011 8:22 PM EST POCT GLUCOSE Routine 04/13/2011 5:58 PM EST BLOOD GAS ARTERIAL POC Routine 04/13/2011 5:53 PM EST LACTATE, PLASMA Routine 04/13/2011 5:30 PM EST SPONTANEOUS BREATHING TRIAL Routine 04/13/2011 2:35 PM EST EXTUBATE Routine 04/13/2011 2:35 PM EST POCT GLUCOSE Routine 04/13/2011 1:08 PM EST BLOOD GAS ARTERIAL POC Routine 04/13/2011 12:54 PM EST LACTATE, PLASMA Routine 04/13/2011 12:45 PM EST POCT GLUCOSE Routine 04/13/2011 8:37 AM EST BLOOD GAS ARTERIAL POC Routine 04/13/2011 8:29 AM EST LACTATE, PLASMA Routine 04/13/2011 5:47 AM EST BLOOD GAS ARTERIAL POC Routine 04/13/2011 5:42 AM EST DIFFERENTIAL, AUTOMATED Routine 04/13/2011 4:00 AM EST APTT Routine 04/13/2011 4:00 AM EST PROTHROMBIN TIME Routine 04/13/2011 4:00 AM EST CBC (WITH DIFF) Routine 04/13/2011 4:00 AM EST BASIC METABOLIC PANEL Routine 04/13/2011 4:00 AM EST XR CHEST ONE VIEW STAT 04/13/2011 1:0 3 AM EST BLOOD GAS ARTERIAL POC Routine 04/12/2011 11:57 PM EST LACTATE, PLASMA Routine 04/12/2011 11:55 PM EST POCT GLUCOSE Routine 04/12/2011 8:41 PM EST BLOOD GAS ARTERIAL POC Routine 04/12/2011 8:05 PM EST ENDOTRACHEAL TUBE POSITION CHANGE Routine 04/12/2011 5:41 PM EST DIFFERENTIAL, AUTOMATED STAT 04/12/2011 5:25 PM EST CBC (WITH DIFF) STAT 04/12/2011 5:25 PM EST LACTATE, PLASMA STAT 04/12/2011 5:25 PM EST XR CHEST ONE VIEW Routine 04/12/2011 4:5 2 PM EST BLOOD GAS ARTERIAL POC Routine 04/12/2011 4:12 PM EST POCT GLUCOSE Routine 04/12/2011 4:09 PM EST MECHANICAL VENTILATION Routine 04/12/2011 4:04 PM EST POCT GLUCOSE Routine 04/12/2011 3:49 PM EST BLOOD GAS ARTERIAL ([facility]) STAT 04/12/2011 3:10 PM EST POCT GLUCOSE Routine 04/12/2011 2:57 PM EST KAUR TUBE HOLD STAT 04/12/2011 2:55 PM EST APTT STAT 04/12/2011 2:55 PM EST PROTHROMBIN TIME STAT 04/12/2011 2:55 PM EST PHOSPHORUS STAT 04/12/2011 2:55 PM EST MAGNESIUM STAT 04/12/2011 2:55 PM EST HEPATIC FUNCTION PANEL STAT 04/12/2011 2:55 PM EST BASIC METABOLIC PANEL STAT 04/12/2011 2:55 PM EST BLOOD GAS ARTERIAL POC Routine 04/12/2011 2:06 PM EST BLOOD GAS ARTERIAL POC Routine 04/12/2011 1:48 PM EST POCT GLUCOSE Routine 04/12/2011 12:34 PM EST BLOOD GAS ARTERIAL POC Routine 04/12/2011 11:27 AM EST @PLACE EXT EVG INTRARENAL AORTIC\ILIAC ARTERY ANEURYSM, S&I (WRVU 1.36) 04/12/2011 10:56 AM EST symptomatic aneurysm @EVG, INFRARENAL AAA OR DISSECTION, S&I (WRVU 4.49) 04/12/2011 10:56 AM EST symptomatic aneurysm @EXPOSURE, OPEN FEM. ARTERY FOR ENDOVASCULAR PROSTHESIS, GROIN-FABIANA (WRVU 4.13) 04/12/2011 10:56 AM EST symptomatic aneurysm @EVG, AAA, W\ MODULAR BIFURCATED PROS. W\ 2 DOCKING LIMBS (WRVU 24.82) 04/12/2011 10:56 AM EST symptomatic aneurysm @EVG-PLACEMENT, CUFF OR EXT. AORTIC OR ILIAC ANEURYSM REPAIR, GORE (WRVU 12.8) 04/12/2011 10:56 AM EST symptomatic aneurysm POCT GLUCOSE Routine 04/12/2011 9:53 AM EST TYPE AND SCREEN ([facility]) STAT 04/12/2011 8:34 AM EST GREEN TUBE HOLD STAT 04/12/2011 8:25 AM EST LAVENDER TUBE HOLD STAT 04/12/2011 8: 25 AM EST ABO/RH TYPING STAT 04/12/2011 8:25 AM EST ANTIBODY SCREEN STAT 04/12/2011 8:25 AM EST XR CHEST ONE VIEW Routine 04/12/2011 8:0 0 AM EST EKG 12-LEAD STAT 04/12/2011 7:31 AM EST EVG-PLACEMENT, CUFF OR EXT. AORTIC OR ILIAC ANEURYSM REPAIR,GORE Routine 04/12/2011 7:30 AM EST URINE CULTURE STAT 04/12/2011 7:26 AM EST URINALYSIS WITH REFLEX CULTURE STAT 04/12/2011 7:25 AM EST DIFFERENTIAL, AUTOMATED STAT 04/12/2011 7:15 AM EST CREATININE STAT 04/12/2011 7:15 AM EST APTT STAT 04/12/2011 7:15 AM EST PROTHROMBIN TIME STAT 04/12/2011 7:15 AM EST CBC (WITH DIFF) STAT 04/12/2011 7:15 AM EST BUN STAT 04/12/2011 7:15 AM EST TROPONIN STAT 04/12/2011 7:15 AM EST GLUCOSE STAT 04/12/2011 7:15 AM EST CK STAT 04/12/2011 7:15 AM EST ELECTROLYTES PANEL STAT 04/12/2011 7: 15 AM EST documented in this encounter Results * SCAN DOC: IMPLANTABLE DEVICES (04/17/2011 11:15 AM EST) Narrative 04/17/2011 11:15 AM EST Procedure Note Provider, Scanning - 04/17/2011 11:15 AM EST Scanning Provider MEDIA MGR SCAN EXT O RDR/RSLT * SCAN DOC: CYLINDER DIE MACHINE HELPER (04/17/2011 11:15 AM EST) Anatomical Region Laterality Modality Other Narrative 04/17/2011 3:20 PM EST Procedure Note Provider, Scanning - 04/17/2011 11:15 AM EST Scanning Provider MEDIA MGR SCAN EXT O RDR/RSLT * (ABNORMAL) POCT GLUCOSE LAB USE ONLY (04/16/2011 10:58 AM EST) Glucose, POC 257(H) 60 - 199 mg/dL [facility] Comment: Supplemental ranges: <110 mg/dL before meals <200 mg/dL all other times of the day Blood specimen (specimen) 04/16/2011 10:58 AM EST 04/16/2011 10:58 AM EST Randy Padilla MD POINT OF CARE TEST O BHASKAR Performing Organization Address [facility] de Phone Number [facility] * POCT GLUCOSE LAB USE ONLY (04/16/2011 7:21 AM EST) Glucose, POC 181 60 - 199 mg/dL [facility] Comment: Supplemental ranges: <110 mg/dL before meals <200 mg/dL all other times of the day Blood specimen (specimen) 04/16/2011 7:21 AM EST 04/16/2011 7:21 AM EST Randy Padilla MD POINT OF CARE TEST O BHASKAR Performing Organization Address [facility] Co de Phone Number [facility] * (ABNORMAL) DIFFERENTIAL, AUTOMATED (04/16/2011 6:08 AM EST) Neutrophil % 65.0 34.0 - 71.0 % CERNER MILLENNIUM Neutrophil Absolute 7.41(H) 1.50 - 6.30 x10(3)/mc L CERNER MILLENNIUM Lymph % 20.6 19.0 - 53.0 % CERNER MILLENNIUM Lymphocytes Abs 2.4 1.0 - 3.6 x10(3)/mc L CERNER MILLENNIUM Monocyte % 10.8 4.0 - 13.0 % CERNER MILLENNIUM Monocyte Abs 1.2(H) 0.2 - 1.0 x10(3)/mc L CERNER MILLENNIUM Eos % 3.1 0.0 - 7.0 % CERNER MILLENNIUM Eosinophils Abs 0.4 0.0 - 0.5 x10(3)/mc L CERNER MILLENNIUM Basophil % 0.3 0.0 - 2.0 % CERNER MILLENNIUM Baso Absolute 0.0 0.0 - 0.2 x10(3)/mc L CERNER MILLENNIUM Immature Gran % 0.20 0.00 - 0.66 % CERNER MILLENNIUM Comment: Immature granulocytes(IG's)percentage and absolute count will include metamyelocytes, myelocytes, and promyelocytes. Blood smears from CBCs yielding IG's will be scanned manually for concordance. If this scan disagrees with the automated IG or if promyelocytes are noted, a manual differential will be performed. Immature Gran Absolute 0.02 0.00 - 0.05 x10(3)/mc L CERNER MILLENNIUM Blood specimen (specimen) 04/16/2011 6:08 AM EST 04/16/2011 6:27 AM EST Randy Padilla MD HEMATOLOGY ORDERABLE S CERMARTI MILLENNIUM * (ABNORMAL) Basic Metabolic Panel (non-fasting) (04/16/2011 6:08 AM EST) Glucose 168 60 - 199 mg/dL CERNER MILLENNIUM Comment:Diabetes: >=200 mg/d L plus symptoms Blood Urea Nitrogen 10 10 - 20 mg/dL CERNER MILLENNIUM Creatinine 1.13 0.80 - 1.50 mg/dL CERNER MILLENNIUM Sodium 136 135 - 145 mmol/L CERNER MILLENNIUM Potassium 3.1(L) 3.5 - 5.0 mmol/L CERNER MILLENNIUM Comment: Please note: ??Patients with WBC >100,000 may have falsely elevated Potassium levels. ??For accurate Potassium quantification in these patients send serum separator tube (gold top) for subsequent determinations. ??Contact the Clinical Chemistry Laboratory if there are any questions. Chloride 99 98 - 107 mmol/L CERNER MILLENNIUM Carbon Dioxide 28 22 - 31 mmol/L CERNER MILLENNIUM Anion Gap 9 5 - 15 mmol/L CERNER MILLENNIUM Calcium 8.8 8.5 - 10.5 mg/dL CERNER MILLENNIUM Est Glomerular Filtration Rate >60 >=60 CERNER MILLENNIUM Comment: The National Kidney Disease Education Program (NKDEP) has recommended all laboratories report estimated GFR (eGFR) along with plasma creatinine measurements to assist you with recognition of early kidney disease. Caveats: ??Plasma creatinine should be at steady-state (unchanged within the past week). For patients multiply eGFR by 1.2. The MDRD equation has not been validated for pediatric patients and is only valid for patients with age >= 18 years. At present, NKDEP does NOT recommend using the MDRD equation for drug dosing purposes and pharmacists should continue to use their current dosing methods. In addition, numerical eGFR values greater than 60 ml/min/1.73 square meters should be treated as > 60, and not an exact number due to greater inaccuracies at these higher values. Per NKDEP, they classify normal renal function as any GFR >60ml/min/1.73 square meters; chronic kidney disease when GFR <60, and renal failure when GFR <15. ??This calculation may not be valid for patients with atypical muscle mass (very lean or obese), acute renal failure, and in patients with diabetic kidney disease. References: http://nkdep.nih.gov/resources/NKDEP_Suggestn4Labs_0606_508.pdf http://www.kidney.org/professionals/kls/pdf/faq_gfr.pdf Blood specimen (specimen) 04/16/2011 6:08 AM EST 04/16/2011 6:27 AM EST Randy Padilla MD CHEMISTRY ORDERABLES DONNIE DIETZ * (ABNORMAL) CBC (with Diff) (04/16/2011 6:08 AM EST) White Blood Cell 11.4(H) 4.0 - 10.0 x10(3)/mc L CERNER MILLENNIUM Red Blood Cell 4.03(L) 4.63 - 6.08 x10(6)/mc L CERNER MILLENNIUM Hemoglobin 12.5(L) 13.7 - 17.5 gm/dL CERNER MILLENNIUM Hematocrit 35.9(L) 40.0 - 51.0 % CERNER MILLENNIUM Mean Cell Volume 89.1 79.0 - 92.0 fL CERNER MILLENNIUM Mean Cell Hemoglobin 31.0 25.6 - 32.2 pg CERNER MILLENNIUM Mean Cell Hemoglobin Concentration 34.8 32.0 - 36.5 gm/dL CERNER MILLENNIUM Platelet 159 145 - 370 x10(3)/mc L CERNER MILLENNIUM RDW Standard Deviation 38.7 35.0 - 46.0 fL CERNER MILLENNIUM RDW coefficient of variation 12.1 10.9 - 14.4 % CERNER MILLENNIUM Mean Platelet Volume 10.3 9.0 - 12.0 fL CERNER MILLENNIUM Blood specimen (specimen) 04/16/2011 6:08 AM EST 04/16/2011 6:27 AM EST Randy Padilla MD HEMATOLOGY ORDERABLE S Performing Organization Address [facility] Phone Number DONNIE DIETZ * (ABNORMAL) POCT GLUCOSE LAB USE ONLY (04/15/2011 8:59 PM EST) Glucose, POC 217(H) 60 - 199 mg/dL [facility]ER[facility] MILLEN[facility] Comment: Supplemental ranges: <110 mg/dL before meals <200 mg/dL all other times of the day Blood specimen (specimen) 04/15/2011 8:59 PM EST 04/15/2011 8:59 PM EST Randy Padilla MD POINT OF CARE TEST O RDERABLES Performing Organization Address [facility]/ZIP Co de Phone Number [facility] * POCT GLUCOSE LAB USE ONLY (04/15/2011 4:07 PM EST) Glucose, POC 162 60 - 199 mg/dL [facility] Comment: Supplemental ranges: <110 mg/dL before meals <200 mg/dL all other times of the day Blood specimen (specimen) 04/15/2011 4:07 PM EST 04/15/2011 4:07 PM EST Randy Padilla MD POINT OF CARE TEST O RDERAJAZZY Performing Organization Address [facility] de Phone Number [facility] * POCT GLUCOSE LAB USE ONLY (04/15/2011 12:46 PM EST) Glucose, POC 157 60 - 199 mg/dL [facility] Comment: Supplemental ranges: <110 mg/dL before meals <200 mg/dL all other times of the day Blood specimen (specimen) 04/15/2011 12:46 PM EST 04/15/2011 12:46 PM EST Randy Padilla MD POINT OF CARE TEST O BHASKAR Performing Organization Address [facility] Phone Number [facility] * POCT GLUCOSE LAB USE ONLY (04/15/2011 8:34 AM EST) Glucose, POC 173 60 - 199 mg/dL [facility] Comment: Supplemental ranges: <110 mg/dL before meals <200 mg/dL all other times of the day Blood specimen (specimen) 04/15/2011 8:34 AM EST 04/15/2011 8:34 AM EST Randy Padilla MD POINT OF CARE TEST O RDERAJAZZY Performing Organization Address [facility] Phone Number [facility] * (ABNORMAL) DIFFERENTIAL, AUTOMATED (04/15/2011 6:05 AM EST) Neutrophil % 74.7(H) 34.0 - 71.0 % CERNER MILLENNIUM Neutrophil Absolute 12.09(H) 1.50 - 6.30 x10(3)/mc L CERNER MILLENNIUM Lymph % 14.9(L) 19.0 - 53.0 % CERNER MILLENNIUM Lymphocytes Abs 2.4 1.0 - 3.6 x10(3)/mc L CERNER MILLENNIUM Monocyte % 7.9 4.0 - 13.0 % CERNER MILLENNIUM Monocyte Abs 1.3(H) 0.2 - 1.0 x10(3)/mc L CERNER MILLENNIUM Eos % 1.9 0.0 - 7.0 % CERNER MILLENNIUM Eosinophils Abs 0.3 0.0 - 0.5 x10(3)/mc L CERNER MILLENNIUM Basophil % 0.2 0.0 - 2.0 % CERNER MILLENNIUM Baso Absolute 0.0 0.0 - 0.2 x10(3)/mc L CERNER MILLENNIUM Immature Gran % 0.40 0.00 - 0.66 % CERNER MILLENNIUM Comment: Immature granulocytes(IG's)percentage and absolute count will include metamyelocytes, myelocytes, and promyelocytes. Blood smears from CBCs yielding IG's will be scanned manually for concordance. If this scan disagrees with the automated IG or if promyelocytes are noted, a manual differential will be performed. Immature Gran Absolute 0.06(H) 0.00 - 0.05 x10(3)/mc L CERNER MILLENNIUM Blood specimen (specimen) 04/15/2011 6:05 AM EST 04/15/2011 6:12 AM EST Randy Padilla MD HEMATOLOGY ORDERABLE S DONNIE HIGGINSENNIUM * (ABNORMAL) CBC (with Diff) (04/15/2011 6:05 AM EST) White Blood Cell 16.2(H) 4.0 - 10.0 x10(3)/mc L CERNER MILLENNIUM Red Blood Cell 3.90(L) 4.63 - 6.08 x10(6)/mc L CERNER MILLENNIUM Hemoglobin 12.0(L) 13.7 - 17.5 gm/dL CERNER MILLENNIUM Hematocrit 34.6(L) 40.0 - 51.0 % CERNER MILLENNIUM Mean Cell Volume 88.7 79.0 - 92.0 fL CERNER MILLENNIUM Mean Cell Hemoglobin 30.8 25.6 - 32.2 pg CERNER MILLENNIUM Mean Cell Hemoglobin Concentration 34.7 32.0 - 36.5 gm/dL CERNER MILLENNIUM Platelet 146 145 - 370 x10(3)/mc L CERNER MILLENNIUM RDW Standard Deviation 38.5 35.0 - 46.0 fL CERNER MILLENNIUM RDW coefficient of variation 12.0 10.9 - 14.4 % CERNER MILLENNIUM Mean Platelet Volume 10.6 9.0 - 12.0 fL CERNER MILLENNIUM Blood specimen (specimen) 04/15/2011 6:05 AM EST 04/15/2011 6:12 AM EST Randy Padilla MD HEMATOLOGY ORDERABLE S CERNER MILLENNIUM * (ABNORMAL) Basic Metabolic Panel (non-fasting) (04/15/2011 6:05 AM EST) Glucose 160 60 - 199 mg/dL CERNER MILLENNIUM Comment:Diabetes: >=200 mg/d L plus symptoms Blood Urea Nitrogen 7(L) 10 - 20 mg/dL CERNER MILLENNIUM Creatinine 0.94 0.80 - 1.50 mg/dL CERNER MILLENNIUM Sodium 140 135 - 145 mmol/L CERNER MILLENNIUM Potassium 3.3(L) 3.5 - 5.0 mmol/L CERNER MILLENNIUM Comment: Please note: ??Patients with WBC >100,000 may have falsely elevated Potassium levels. ??For accurate Potassium quantification in these patients send serum separator tube (gold top) for subsequent determinations. ??Contact the Clinical Chemistry Laboratory if there are any questions. Chloride 103 98 - 107 mmol/L CERNER MILLENNIUM Carbon Dioxide 26 22 - 31 mmol/L CERNER MILLENNIUM Anion Gap 11 5 - 15 mmol/L CERNER MILLENNIUM Calcium 8.6 8.5 - 10.5 mg/dL CERNER MILLENNIUM Est Glomerular Filtration Rate >60 >=60 DONNIE DIETZ Comment: The National Kidney Disease Education Program (NKDEP) has recommended all laboratories report estimated GFR (eGFR) along with plasma creatinine measurements to assist you with recognition of early kidney disease. Caveats: ??Plasma creatinine should be at steady-state (unchanged within the past week). For patients multiply eGFR by 1.2. The MDRD equation has not been validated for pediatric patients and is only valid for patients with age >= 18 years. At present, NKDEP does NOT recommend using the MDRD equation for drug dosing purposes and pharmacists should continue to use their current dosing methods. In addition, numerical eGFR values greater than 60 ml/min/1.73 square meters should be treated as > 60, and not an exact number due to greater inaccuracies at these higher values. Per NKDEP, they classify normal renal function as any GFR >60ml/min/1.73 square meters; chronic kidney disease when GFR <60, and renal failure when GFR <15. ??This calculation may not be valid for patients with atypical muscle mass (very lean or obese), acute renal failure, and in patients with diabetic kidney disease. References: http://nkdep.nih.gov/resources/NKDEP_Suggestn4Labs_0606_508.pdf http://www.kidney.org/professionals/kls/pdf/faq_gfr.pdf Blood specimen (specimen) 04/15/2011 6:05 AM EST 04/15/2011 6:12 AM EST Randy Padilla MD CHEMISTRY ORDERABLES DONNIE DIETZ * (ABNORMAL) Potassium (04/15/2011 4:30 AM EST) Potassium 3.2(L) 3.5 - 5.0 mmol/L DONNIE DIETZ Comment: Please note: ??Patients with WBC >100,000 may have falsely elevated Potassium levels. ??For accurate Potassium quantification in these patients send serum separator tube (gold top) for subsequent determinations. ??Contact the Clinical Chemistry Laboratory if there are any questions. Blood specimen (specimen) 04/15/2011 4:30 AM EST 04/15/2011 4:34 AM EST Randy Padilla MD CHEMISTRY ORDERABLES Performing Organization Address [facility] Phone Number [facility] * POCT GLUCOSE LAB USE ONLY (04/14/2011 8:46 PM EST) Glucose, POC 156 60 - 199 mg/dL [facility] Comment: Supplemental ranges: <110 mg/dL before meals <200 mg/dL all other times of the day Blood specimen (specimen) 04/14/2011 8:46 PM EST 04/14/2011 8:46 PM EST Randy Padilla MD POINT OF CARE TEST O RDERABLES Performing Organization Address [facility] Phone Number [facility] * POCT GLUCOSE LAB USE ONLY (04/14/2011 5:36 PM EST) Glucose, POC 159 60 - 199 mg/dL [facility] Comment: Supplemental ranges: <110 mg/dL before meals <200 mg/dL all other times of the day Blood specimen (specimen) 04/14/2011 5:36 PM EST 04/14/2011 5:36 PM EST Randy Padilla MD POINT OF CARE TEST O RDERABLES Performing Organization Address [facility] Phone Number [facility] * (ABNORMAL) POCT GLUCOSE LAB USE ONLY (04/14/2011 1:31 PM EST) Glucose, POC 201(H) 60 - 199 mg/dL [facility] Comment: Supplemental ranges: <110 mg/dL before meals <200 mg/dL all other times of the day Blood specimen (specimen) 04/14/2011 1:31 PM EST 04/14/2011 1:31 PM EST Randy Padilla MD POINT OF CARE TEST O RDERAJAZZY Performing Organization Address [facility]/ZIP Co de Phone Number DONNIE DIETZ * VANCOMYCIN, TROUGH (04/14/2011 10:30 AM EST) Vancomycin, Trough 14.2 mg/L Anna DIETZ Comment: Therapeutic range for complicated infections such as bacteremia, endocarditis, osteomyelitis, meningitis, and hospital-acquired pneumonia caused by S. aureus: 15-20 mg/L Therapeutic range for other indications: 10-15 mg/L Toxic: >25mg/L Reference: Vancomycin Therapeutic Monitoring: Review and Recommendations from the ASHP, IDSA and SIDP Task Force. ??Am J Health-Syst Pharm. 2009; 66:82-98 Blood specimen (specimen) 04/14/2011 10:30 AM EST 04/14/2011 9:29 PM EST Randy Padilla MD CHEMISTRY ORDERABLES Performing Organization Address [facility] Co de Phone Number DONNIE DIETZ * POCT GLUCOSE LAB USE ONLY (04/14/2011 8:17 AM EST) Glucose, POC 171 60 - 199 mg/dL DONNIE DIETZ Comment: Supplemental ranges: <110 mg/dL before meals <200 mg/dL all other times of the day Blood specimen (specimen) 04/14/2011 8:17 AM EST 04/14/2011 8:17 AM EST Randy Padilla MD POINT OF CARE TEST O RDERABLES Performing Organization Address [facility] Co de Phone Number DONNIE DIETZ * (ABNORMAL) DIFFERENTIAL, AUTOMATED (04/14/2011 8:00 AM EST) Neutrophil % 78.6(H) 34.0 - 71.0 % CERNER MILLENNIUM Neutrophil Absolute 14.46(H) 1.50 - 6.30 x10(3)/mc L CERNER MILLENNIUM Lymph % 10.6(L) 19.0 - 53.0 % CERNER MILLENNIUM Lymphocytes Abs 2.0 1.0 - 3.6 x10(3)/mc L CERNER MILLENNIUM Monocyte % 8.7 4.0 - 13.0 % CERNER MILLENNIUM Monocyte Abs 1.6(H) 0.2 - 1.0 x10(3)/mc L CERNER MILLENNIUM Eos % 1.5 0.0 - 7.0 % CERNER MILLENNIUM Eosinophils Abs 0.3 0.0 - 0.5 x10(3)/mc L CERNER MILLENNIUM Basophil % 0.2 0.0 - 2.0 % CERNER MILLENNIUM Baso Absolute 0.0 0.0 - 0.2 x10(3)/mc L CERNER MILLENNIUM Immature Gran % 0.40 0.00 - 0.66 % CERNER MILLENNIUM Comment: Immature granulocytes(IG's)percentage and absolute count will include metamyelocytes, myelocytes, and promyelocytes. Blood smears from CBCs yielding IG's will be scanned manually for concordance. If this scan disagrees with the automated IG or if promyelocytes are noted, a manual differential will be performed. Immature Gran Absolute 0.07(H) 0.00 - 0.05 x10(3)/mc L CERNER MILLENNIUM Blood specimen (specimen) 04/14/2011 8:00 AM EST 04/14/2011 8:31 PM EST Randy Padilla MD HEMATOLOGY ORDERABLE S Performing Organization Address [facility] Phone Number DONNIE DIETZ * LACTIC ACID, PLASMA (04/14/2011 8:00 AM EST) Lactic Acid 1.3 0.5 - 2.2 mmol/L CERNER MILLENNIUM Blood specimen (specimen) 04/14/2011 8:00 AM EST 04/14/2011 8:31 PM EST Randy Padilla MD CHEMISTRY ORDERABLES Performing Organization Address [facility] Co de Phone Number CERMARTI HIGGINSENNIUM * (ABNORMAL) CBC (WITH DIFF) (04/14/2011 8:00 AM EST) White Blood Cell 18.4(H) 4.0 - 10.0 x10(3)/mc L CERNER MILLENNIUM Red Blood Cell 4.05(L) 4.63 - 6.08 x10(6)/mc L CERNER MILLENNIUM Hemoglobin 12.4(L) 13.7 - 17.5 gm/dL CERNER MILLENNIUM Hematocrit 36.1(L) 40.0 - 51.0 % CERNER MILLENNIUM Mean Cell Volume 89.1 79.0 - 92.0 fL CERNER MILLENNIUM Mean Cell Hemoglobin 30.6 25.6 - 32.2 pg CERNER MILLENNIUM Mean Cell Hemoglobin Concentration 34.3 32.0 - 36.5 gm/dL CERNER MILLENNIUM Platelet 138(L) 145 - 370 x10(3)/mc L CERNER MILLENNIUM RDW Standard Deviation 39.1 35.0 - 46.0 fL CERNER MILLENNIUM RDW coefficient of variation 12.1 10.9 - 14.4 % CERNER MILLENNIUM Mean Platelet Volume 10.4 9.0 - 12.0 fL CERNER MILLENNIUM Blood specimen (specimen) 04/14/2011 8:00 AM EST 04/14/2011 8:31 PM EST Randy Padilla MD HEMATOLOGY ORDERABLE S CERNER MILLENNIUM * (ABNORMAL) BASIC METABOLIC PANEL (NON-FASTING) (04/14/2011 8:00 AM EST) Glucose 184 60 - 199 mg/dL CERNER MILLENNIUM Comment:Diabetes: >=200 mg/d L plus symptoms Blood Urea Nitrogen 7(L) 10 - 20 mg/dL CERNER MILLENNIUM Creatinine 1.05 0.80 - 1.50 mg/dL CERNER MILLENNIUM Sodium 140 135 - 145 mmol/L CERNER MILLENNIUM Potassium 3.8 3.5 - 5.0 mmol/L CERNER MILLENNIUM Comment: Please note: ??Patients with WBC >100,000 may have falsely elevated Potassium levels. ??For accurate Potassium quantification in these patients send serum separator tube (gold top) for subsequent determinations. ??Contact the Clinical Chemistry Laboratory if there are any questions. Chloride 107 98 - 107 mmol/L CERNER MILLENNIUM Carbon Dioxide 25 22 - 31 mmol/L CERNER MILLENNIUM Anion Gap 8 5 - 15 mmol/L CERNER MILLENNIUM Calcium 8.4(L) 8.5 - 10.5 mg/dL CERNER MILLENNIUM Est Glomerular Filtration Rate >60 >=60 CERNER MILLENNIUM Comment: The National Kidney Disease Education Program (NKDEP) has recommended all laboratories report estimated GFR (eGFR) along with plasma creatinine measurements to assist you with recognition of early kidney disease. Caveats: ??Plasma creatinine should be at steady-state (unchanged within the past week). For patients multiply eGFR by 1.2. The MDRD equation has not been validated for pediatric patients and is only valid for patients with age >= 18 years. At present, NKDEP does NOT recommend using the MDRD equation for drug dosing purposes and pharmacists should continue to use their current dosing methods. In addition, numerical eGFR values greater than 60 ml/min/1.73 square meters should be treated as > 60, and not an exact number due to greater inaccuracies at these higher values. Per NKDEP, they classify normal renal function as any GFR >60ml/min/1.73 square meters; chronic kidney disease when GFR <60, and renal failure when GFR <15. ??This calculation may not be valid for patients with atypical muscle mass (very lean or obese), acute renal failure, and in patients with diabetic kidney disease. References: http://nkdep.nih.gov/resources/NKDEP_Suggestn4Labs_0606_508.pdf http://www.kidney.org/professionals/kls/pdf/faq_gfr.pdf Blood specimen (specimen) 04/14/2011 8:00 AM EST 04/14/2011 8:30 PM EST Randy Padilla MD CHEMISTRY ORDERABLES DONNIE HIGGINSAMINAHIUM * (ABNORMAL) Potassium (04/13/2011 9:47 PM EST) Potassium 3.4(L) 3.5 - 5.0 mmol/L CERNER MILLENNIUM Comment: Please note: ??Patients with WBC >100,000 may have falsely elevated Potassium levels. ??For accurate Potassium quantification in these patients send serum separator tube (gold top) for subsequent determinations. ??Contact the Clinical Chemistry Laboratory if there are any questions. Blood specimen (specimen) 04/13/2011 9:47 PM EST 04/14/2011 7:16 PM EST Randy Padilla MD CHEMISTRY ORDERABLES Performing Organization Address [facility] Phone Number [facility] * POCT GLUCOSE LAB USE ONLY (04/13/2011 8:22 PM EST) Glucose, POC 167 60 - 199 mg/dL [facility] Comment: Supplemental ranges: <110 mg/dL before meals <200 mg/dL all other times of the day Blood specimen (specimen) 04/13/2011 8:22 PM EST 04/13/2011 8:22 PM EST Randy Padilla MD POINT OF CARE TEST O RDERABLES Performing Organization Address [facility] Phone Number [facility] * POCT GLUCOSE LAB USE ONLY (04/13/2011 5:58 PM EST) Glucose, POC 164 60 - 199 mg/dL [facility] Comment: Supplemental ranges: <110 mg/dL before meals <200 mg/dL all other times of the day Blood specimen (specimen) 04/13/2011 5:58 PM EST 04/13/2011 5:58 PM EST Randy Padilla MD POINT OF CARE TEST O RDERAJAZZY Performing Organization Address [facility] Phone Number [facility] * (ABNORMAL) BLOOD GAS 2 ARTERIAL (04/13/2011 5:53 PM EST) pH, Arterial 7.37 CERNER MILLENNIUM PCO2, Arterial 30(L) mmHg CERNE R MILLENNIUM PO2, Arterial 79(L) mmHg CERNER MILLENNIUM Bicarbonate, Arterial 16.8(L) mmol/L CERNER MILLENNIUM Base Excess, Arterial -8.4(L) mmol/L CERNER MILLENNIUM Hgb Blood Gas 11.5(L) gm/dL CERNER MILLENNIUM Comment: Total Hemoglobin (in gm/dL) ?Based on [facility] Hematology ranges: ?Age ?Reference Range Less than 3 days ?14.5 to 22.5 3 days to 2 weeks ? 12.5 to 20.5 2 weeks to 1 month ?10.0 to 18.0 1 to 6 months ?9.4 to 14.0 6 months to 2 years ? 10.5 to 13.5 2 to 6 years ?11.5 to 13.5 6 to 12 years ? 11.5 to 15.5 12 to 18 years (female) 12.0 to 16.0 ? (male) ?? 13.0 to 16.0 > 18 years ? (female) 11.2 to 15.7 ? (male) ?? 13.7 to 17.5 Oxyhemoglobin, Arterial 94.2 % CERNER MILLENNIUM Carboxyhemoglob in, Arterial 0.8 % CERNER MILLENNIUM Comment: Nonsmokers: 0.5-1.5% COHB Smokers: Variable, but usually less than 10% Toxic: 20-30% COHB Lethal: Greater than 60% COHB Methemoglobin, Arterial 0.4 % CERNER MILLENNIUM Na Whole Blood 139 mmol/L CERNE R MILLENNIUM K Whole Blood 3.2(L) mmol/L CERNER MILLENNIUM Comment: Please note: Patients with WBC >100,000 may have falsely elevated Potassium levels. Contact the Clinical Chemistry Laboratory if there are any questions. ICa Whole Blood 0.99(L) mmol/L CERN ER MILLENNIUM Comment: Reference Ranges: ?? < 19 yrs: 1.22 - 1.37 mmol/L ? Adults: 1.15 - 1.33 mmol/L Note: ??Total bilirubin higher than 20 mg/dL may lead to falsely low ionized calcium. CL Whole Blood 117(H) mmol/L CERNE R MILLENNIUM Gluc Whole Bld 140 mg/dL CERNE R MILLENNIUM Comment:Diabetes: >=200 mg/d L plus symptoms. Flow Art 4.0 LPM CERNER MILLENNIUM Blood specimen (specimen) 04/13/2011 5:53 PM EST 04/13/2011 5:53 PM EST Randy Padilla MD POINT OF CARE TEST O RDERABLES Performing Organization Address [facility] Phone Number [facility] * Lactic acid, plasma (04/13/2011 5:30 PM EST) Lactic Acid 1.8 0.5 - 2.2 mmol/L [facility] Blood specimen (specimen) 04/13/2011 5:30 PM EST 04/14/2011 7:25 PM EST Randy Padilla MD CHEMISTRY ORDERABLES Performing Organization Address [facility] Phone Number [facility] * POCT GLUCOSE LAB USE ONLY (04/13/2011 1:08 PM EST) Glucose, POC 117 60 - 199 mg/dL [facility] Comment: Supplemental ranges: <110 mg/dL before meals <200 mg/dL all other times of the day Blood specimen (specimen) 04/13/2011 1:08 PM EST 04/13/2011 1:08 PM EST Randy Padilla MD POINT OF CARE TEST O RDERABLES Performing Organization Address [facility] Phone Number [facility] * (ABNORMAL) BLOOD GAS 2 ARTERIAL (04/13/2011 12:54 PM EST) pH, Arterial 7.40 CERNER MILLENNIUM PCO2, Arterial 28(L) mmHg CERNE R MILLENNIUM PO2, Arterial 89 mmHg CERNER MILLENNIUM Bicarbonate, Arterial 16.9(L) mmol/L CERNER MILLENNIUM Base Excess, Arterial -7.9(L) mmol/L CERNER MILLENNIUM Hgb Blood Gas 10.6(L) gm/dL CERNER MILLENNIUM Comment: Total Hemoglobin (in gm/dL) ?Based on [facility] Hematology ranges: ?Age ?Reference Range Less than 3 days ?14.5 to 22.5 3 days to 2 weeks ? 12.5 to 20.5 2 weeks to 1 month ?10.0 to 18.0 1 to 6 months ?9.4 to 14.0 6 months to 2 years ? 10.5 to 13.5 2 to 6 years ?11.5 to 13.5 6 to 12 years ? 11.5 to 15.5 12 to 18 years (female) 12.0 to 16.0 ? (male) ?? 13.0 to 16.0 > 18 years ? (female) 11.2 to 15.7 ? (male) ?? 13.7 to 17.5 Oxyhemoglobin, Arterial 95.8 % CERNER MILLENNIUM Carboxyhemoglob in, Arterial 0.2 % CERNER MILLENNIUM Comment: Nonsmokers: 0.5-1.5% COHB Smokers: Variable, but usually less than 10% Toxic: 20-30% COHB Lethal: Greater than 60% COHB Methemoglobin, Arterial 0.4 % CERNER MILLENNIUM Na Whole Blood 139 mmol/L CERNE R MILLENNIUM K Whole Blood 2.9(Critic al) mmol/L CERNER MILLENNIUM Comment: Noted by instrument repairer. Please note: Patients with WBC >100,000 may have falsely elevated Potassium levels. Contact the Clinical Chemistry Laboratory if there are any questions. ICa Whole Blood 0.97(L) mmol/L CERN ER MILLENNIUM Comment: Reference Ranges: ?? < 19 yrs: 1.22 - 1.37 mmol/L ? Adults: 1.15 - 1.33 mmol/L Note: ??Total bilirubin higher than 20 mg/dL may lead to falsely low ionized calcium. CL Whole Blood 118(H) mmol/L CERNE R MILLENNIUM Gluc Whole Bld 126 mg/dL CERNE R MILLENNIUM Comment:Diabetes: >=200 mg/d L plus symptoms. FIO2 Art 40 % CERNER MILLENNIUM PF Ratio Art 222 CERNER MILLENNIUM Blood specimen (specimen) 04/13/2011 12:54 PM EST 04/13/2011 12:54 PM EST Randy Padilla MD POINT OF CARE TEST O RDERABLES Performing Organization Address [facility] Phone Number [facility] * Lactic acid, plasma (04/13/2011 12:45 PM EST) Lactic Acid 1.9 0.5 - 2.2 mmol/L [facility] Blood specimen (specimen) 04/13/2011 12:45 PM EST 04/14/2011 7:19 PM EST Randy Padilla MD CHEMISTRY ORDERABLES Performing Organization Address [facility] Phone Number [facility] * POCT GLUCOSE LAB USE ONLY (04/13/2011 8:37 AM EST) Glucose, POC 128 60 - 199 mg/dL [facility] Comment: Supplemental ranges: <110 mg/dL before meals <200 mg/dL all other times of the day Blood specimen (specimen) 04/13/2011 8:37 AM EST 04/13/2011 8:37 AM EST Randy Padilla MD POINT OF CARE TEST O RDERABLES Performing Organization Address [facility] Phone Number [facility] * (ABNORMAL) BLOOD GAS 2 ARTERIAL (04/13/2011 8:29 AM EST) pH, Arterial 7.38 CERNER MILLENNIUM PCO2, Arterial 28(L) mmHg CERNE R MILLENNIUM PO2, Arterial 78(L) mmHg CERNER MILLENNIUM Bicarbonate, Arterial 15.7(L) mmol/L CERNER MILLENNIUM Base Excess, Arterial -9.5(L) mmol/L CERNER MILLENNIUM Hgb Blood Gas 10.2(L) gm/dL CERNER MILLENNIUM Comment: Total Hemoglobin (in gm/dL) ?Based on [facility] Hematology ranges: ?Age ?Reference Range Less than 3 days ?14.5 to 22.5 3 days to 2 weeks ? 12.5 to 20.5 2 weeks to 1 month ?10.0 to 18.0 1 to 6 months ?9.4 to 14.0 6 months to 2 years ? 10.5 to 13.5 2 to 6 years ?11.5 to 13.5 6 to 12 years ? 11.5 to 15.5 12 to 18 years (female) 12.0 to 16.0 ? (male) ?? 13.0 to 16.0 > 18 years ? (female) 11.2 to 15.7 ? (male) ?? 13.7 to 17.5 Oxyhemoglobin, Arterial 94.7 % CERNER MILLENNIUM Carboxyhemoglob in, Arterial 0.1 % CERNER MILLENNIUM Comment: Nonsmokers: 0.5-1.5% COHB Smokers: Variable, but usually less than 10% Toxic: 20-30% COHB Lethal: Greater than 60% COHB Methemoglobin, Arterial 0.4 % CERNER MILLENNIUM Na Whole Blood 138 mmol/L CERNE R MILLENNIUM K Whole Blood 2.8(Critic al) mmol/L CERNER MILLENNIUM Comment: noted by wink cutter operator Please note: Patients with WBC >100,000 may have falsely elevated Potassium levels. Contact the Clinical Chemistry Laboratory if there are any questions. ICa Whole Blood 0.91(Criti juan manuel) mmol/L CERNER MILLENNIUM Comment: noted by wink cutter operator Reference Ranges: ?? < 19 yrs: 1.22 - 1.37 mmol/L ? Adults: 1.15 - 1.33 mmol/L Note: ??Total bilirubin higher than 20 mg/dL may lead to falsely low ionized calcium. CL Whole Blood 119(H) mmol/L CERNE R MILLENNIUM Gluc Whole Bld 128 mg/dL CERNE R MILLENNIUM Comment:Diabetes: >=200 mg/d L plus symptoms. FIO2 Art 40 % CERNER MILLENNIUM PF Ratio Art 195 CERNER MILLENNIUM Blood specimen (specimen) 04/13/2011 8:29 AM EST 04/13/2011 8:29 AM EST Randy Padilla MD POINT OF CARE TEST O RDERABLES Performing Organization Address [facility] Phone Number CERNER MILLENNIUM * (ABNORMAL) Lactic acid, plasma (04/13/2011 5:47 AM EST) Lactic Acid 2.3(H) 0.5 - 2.2 mmol/L CERNER MILLENNIUM Blood specimen (specimen) 04/13/2011 5:47 AM EST 04/13/2011 5:55 AM EST Randy Padilla MD CHEMISTRY ORDERABLES Performing Organization Address [facility] Phone Number [facility] * (ABNORMAL) BLOOD GAS 2 ARTERIAL (04/13/2011 5:42 AM EST) pH, Arterial 7.36 CERNER MILLENNIUM PCO2, Arterial 36 mmHg CERNE R MILLENNIUM PO2, Arterial 71(L) mmHg CERNER MILLENNIUM Bicarbonate, Arterial 19.9(L) mmol/L CERNER MILLENNIUM Base Excess, Arterial -5.6(L) mmol/L CERNER MILLENNIUM Hgb Blood Gas 12.1(L) gm/dL CERNER MILLENNIUM Comment: Total Hemoglobin (in gm/dL) ?Based on [facility] Hematology ranges: ?Age ?Reference Range Less than 3 days ?14.5 to 22.5 3 days to 2 weeks ? 12.5 to 20.5 2 weeks to 1 month ?10.0 to 18.0 1 to 6 months ?9.4 to 14.0 6 months to 2 years ? 10.5 to 13.5 2 to 6 years ?11.5 to 13.5 6 to 12 years ? 11.5 to 15.5 12 to 18 years (female) 12.0 to 16.0 ? (male) ?? 13.0 to 16.0 > 18 years ? (female) 11.2 to 15.7 ? (male) ?? 13.7 to 17.5 Oxyhemoglobin, Arterial 93.6(L) % CERNER MILLENNIUM Carboxyhemoglob in, Arterial 0.7 % CERNER MILLENNIUM Comment: Nonsmokers: 0.5-1.5% COHB Smokers: Variable, but usually less than 10% Toxic: 20-30% COHB Lethal: Greater than 60% COHB Methemoglobin, Arterial 0.4 % CERNER MILLENNIUM Na Whole Blood 136 mmol/L CERNE R MILLENNIUM K Whole Blood 3.5 mmol/L CERNER MILLENNIUM Comment: Please note: Patients with WBC >100,000 may have falsely elevated Potassium levels. Contact the Clinical Chemistry Laboratory if there are any questions. ICa Whole Blood 1.08(L) mmol/L CERN ER MILLENNIUM Comment: Reference Ranges: ?? < 19 yrs: 1.22 - 1.37 mmol/L ? Adults: 1.15 - 1.33 mmol/L Note: ??Total bilirubin higher than 20 mg/dL may lead to falsely low ionized calcium. CL Whole Blood 111(H) mmol/L CERNE R MILLENNIUM Gluc Whole Bld 150 mg/dL CERNE R MILLENNIUM Comment:Diabetes: >=200 mg/d L plus symptoms. FIO2 Art 40 % CERNER MILLENNIUM PF Ratio Art 178 CERNER MILLENNIUM Blood specimen (specimen) 04/13/2011 5:42 AM EST 04/13/2011 5:42 AM EST Randy Padilla MD POINT OF CARE TEST O RDERABLES CERNER MILLENNIUM * (ABNORMAL) DIFFERENTIAL, AUTOMATED (04/13/2011 4:00 AM EST) Neutrophil % 68.3 34.0 - 71.0 % CERNER MILLENNIUM Neutrophil Absolute 9.11(H) 1.50 - 6.30 x10(3)/mc L CERNER MILLENNIUM Lymph % 21.2 19.0 - 53.0 % CERNER MILLENNIUM Lymphocytes Abs 2.8 1.0 - 3.6 x10(3)/mc L CERNER MILLENNIUM Monocyte % 7.9 4.0 - 13.0 % CERNER MILLENNIUM Monocyte Abs 1.1(H) 0.2 - 1.0 x10(3)/mc L CERNER MILLENNIUM Eos % 2.1 0.0 - 7.0 % CERNER MILLENNIUM Eosinophils Abs 0.3 0.0 - 0.5 x10(3)/mc L CERNER MILLENNIUM Basophil % 0.2 0.0 - 2.0 % CERNER MILLENNIUM Baso Absolute 0.0 0.0 - 0.2 x10(3)/mc L CERNER MILLENNIUM Immature Gran % 0.30 0.00 - 0.66 % CERNER MILLENNIUM Comment: Immature granulocytes(IG's)percentage and absolute count will include metamyelocytes, myelocytes, and promyelocytes. Blood smears from CBCs yielding IG's will be scanned manually for concordance. If this scan disagrees with the automated IG or if promyelocytes are noted, a manual differential will be performed. Immature Gran Absolute 0.04 0.00 - 0.05 x10(3)/mc L CERNER MILLENNIUM Blood specimen (specimen) 04/13/2011 4:00 AM EST 04/13/2011 4:10 AM EST Robyn Fowler MD HEMATOLOGY ORDERABLE S CERNER MILLENNIUM * APTT (04/13/2011 4:00 AM EST) Partial Thromboplastin Time 27 25 - 37 sec [facility] MILLENNIUM Comment: Recommended therapeutic PTT range for full dose unfractionated heparin is 80-114 seconds. Blood specimen (specimen) 04/13/2011 4:00 AM EST 04/13/2011 4:10 AM EST Narrative Authorizing Provider Result Telma Fowler MD HEMATOLOGY ORDERABLE S Performing Organization Address [facility] Phone Number [facility] * (ABNORMAL) Prothrombin Time (04/13/2011 4:00 AM EST) Prothrombin Time 14.8(H) 12.3 - 14.7 sec [facility] MILLENNIUM Comment: [facility] Transfusion Committee Guidelines: INR less than 2.0, PTT less than OR equal to 43.5 seconds, or Fibrinogen greater than or equal to 100 mg/dl indicate adequate procoagulant activity for hemostasis in patients without underlying bleeding disorders. International Normalization Ratio 1.1 0.9 - 1.1 [facility] Blood specimen (specimen) 04/13/2011 4:00 AM EST 04/13/2011 4:10 AM EST Narrative Authorizing Provider Result Telma Fowler MD HEMATOLOGY ORDERABLE S Performing Organization Address [facility] Phone Number DONNIE DIETZ * (ABNORMAL) Basic Metabolic Panel (non-fasting) (04/13/2011 4:00 AM EST) Glucose 158 60 - 199 mg/dL [facility] MILLENNIUM Comment:Diabetes: >=200 mg/d L plus symptoms Blood Urea Nitrogen 12 10 - 20 mg/dL [facility] MILLENNIUM Creatinine 1.12 0.80 - 1.50 mg/dL CERNER MILLENNIUM Sodium 139 135 - 145 mmol/L [facility] Potassium 3.7 3.5 - 5.0 mmol/L [facility] Comment: Please note: ??Patients with WBC >100,000 may have falsely elevated Potassium levels. ??For accurate Potassium quantification in these patients send serum separator tube (gold top) for subsequent determinations. ??Contact the Clinical Chemistry Laboratory if there are any questions. Chloride 109(H) 98 - 107 mmol/L CERNER MILLENNIUM Carbon Dioxide 19(L) 22 - 31 mmol/L CERNER MILLENNIUM Anion Gap 11 5 - 15 mmol/L CERNER MILLENNIUM Calcium 7.4(L) 8.5 - 10.5 mg/dL CERNER MILLENNIUM Est Glomerular Filtration Rate >60 >=60 CERNER MILLENNIUM Comment: The National Kidney Disease Education Program (NKDEP) has recommended all laboratories report estimated GFR (eGFR) along with plasma creatinine measurements to assist you with recognition of early kidney disease. Caveats: ??Plasma creatinine should be at steady-state (unchanged within the past week). For patients multiply eGFR by 1.2.MDRD equation has not been validated for pediatric patients and is only valid for patients with age >= 18 years. At present, NKDEP does NOT recommend using the MDRD equation for drug dosing purposes and pharmacists should continue to use their current dosing methods. In addition, numerical eGFR values greater than 60 ml/min/1.73 square meters should be treated as > 60, and not an exact number due to greater inaccuracies at these higher values. Per NKDEP, they classify normal renal function as any GFR >60ml/min/1.73 square meters; chronic kidney disease when GFR <60, and renal failure when GFR <15. ??This calculation may not be valid for patients with atypical muscle mass (very lean or obese), acute renal failure, and in patients with diabetic kidney disease. References: http://nkdep.nih.gov/resources/NKDEP_Suggestn4Labs_0606_508.pdf http://www.kidney.org/professionals/kls/pdf/faq_gfr.pdf Blood specimen (specimen) 04/13/2011 4:00 AM EST 04/13/2011 4:10 AM EST Robyn Fowler MD CHEMISTRY ORDERABLES DONNIE JUNIORIUM * (ABNORMAL) CBC (with Diff) (04/13/2011 4:00 AM EST) White Blood Cell 13.3(H) 4.0 - 10.0 x10(3)/mc L CERNER MILLENNIUM Red Blood Cell 3.80(L) 4.63 - 6.08 x10(6)/mc L CERNER MILLENNIUM Hemoglobin 11.6(L) 13.7 - 17.5 gm/dL CERNER MILLENNIUM Hematocrit 34.7(L) 40.0 - 51.0 % CERNER MILLENNIUM Mean Cell Volume 91.3 79.0 - 92.0 fL CERNER MILLENNIUM Mean Cell Hemoglobin 30.5 25.6 - 32.2 pg CERNER MILLENNIUM Mean Cell Hemoglobin Concentration 33.4 32.0 - 36.5 gm/dL CERNER MILLENNIUM Platelet 137(L) 145 - 370 x10(3)/mc L CERNER MILLENNIUM RDW Standard Deviation 41.2 35.0 - 46.0 fL CERNER MILLENNIUM RDW coefficient of variation 12.4 10.9 - 14.4 % CERNER MILLENNIUM Mean Platelet Volume 10.6 9.0 - 12.0 fL CERNER MILLENNIUM Blood specimen (specimen) 04/13/2011 4:00 AM EST 04/13/2011 4:10 AM EST Robyn Fowler MD HEMATOLOGY ORDERABLE S DONNIE DIETZ * XR chest PA or AP- 1 view (04/13/2011 1:03 AM EST) Anatomical Region Laterality Modality Chest N/A Radiographic Lilian ging 04/13/2011 1:03 AM EST Impressions 04/16/2011 11:25 AM EST IMPRESSION: ?? 1. Interval satisfactory repositioning of endotracheal tube. 2. Increasing opacity in the left retrocardiac region, likely atelectasis, pneumonia not excluded, however. Narrative 04/16/2011 11:25 AM EST PORTABLE AP 45 DEGREES SEMI-UPRIGHT CHEST, 04/13/11, 0055 HOURS: INDICATION: ??ET tube manipulation. COMPARISON: ??Portable AP 45 degrees semi-upright chest, 04/12/11 at 1645 hours. FINDINGS: ??There has been interval retraction of the endotracheal tube which is now in stable position, terminating approximately 38 mm above the radha. There is increasing opacity in the left retrocardiac region, likely representing atelectasis, though pneumonia cannot be excluded. No significant interval change in bilateral perihilar and basilar opacities, which are felt to represent atelectasis. Cardiomediastinal silhouette is stable. No large pleural effusion. No pneumothorax visualized. Procedure Note Estela Solares MD - 04/16/2011 PORTABLE AP 45 DEGREES SEMI-UPRIGHT CHEST, 04/13/11, 0055 HOURS: INDICATION: ET tube manipulation. COMPARISON: Portable AP 45 degrees semi-upright chest, 04/12/11 at 1645hours. FINDINGS: There has been interval retraction of the endotracheal tubewhich is now in stable position, terminating approximately 38 mm above the radha.There is increasing opacity in the left retrocardiac region, likely representing atelectasis, though pneumonia cannot be excluded. No significant interval change in bilateral perihilar and basilar opacities, which are felt to represent atelectasis. Cardiomediastinal silhouette is stable. No largepleural effusion. No pneumothorax visualized. IMPRESSION IMPRESSION: 1. Interval satisfactory repositioning of endotracheal tube. 2. Increasing opacity in the left retrocardiac region, likely atelectasis, pneumonia not excluded, however. Randy Padilla MD IMG DX ORDERABLES * (ABNORMAL) BLOOD GAS 2 ARTERIAL (04/12/2011 11:57 PM EST) pH, Arterial 7.35(L) CERNER MILLENNIUM PCO2, Arterial 39 mmHg CERNE R MILLENNIUM PO2, Arterial 66(L) mmHg CERNER MILLENNIUM Bicarbonate, Arterial 20.8 mmol/L CERNER MILLENNIUM Base Excess, Arterial -4.8(L) mmol/L CERNER MILLENNIUM Hgb Blood Gas 12.3(L) gm/dL CERNER MILLENNIUM Comment: Total Hemoglobin (in gm/dL) ?Based on [facility] Hematology ranges: ?Age ?Reference Range Less than 3 days ?14.5 to 22.5 3 days to 2 weeks ? 12.5 to 20.5 2 weeks to 1 month ?10.0 to 18.0 1 to 6 months ?9.4 to 14.0 6 months to 2 years ? 10.5 to 13.5 2 to 6 years ?11.5 to 13.5 6 to 12 years ? 11.5 to 15.5 12 to 18 years (female) 12.0 to 16.0 ? (male) ?? 13.0 to 16.0 > 18 years ? (female) 11.2 to 15.7 ? (male) ?? 13.7 to 17.5 Oxyhemoglobin, Arterial 92.1(L) % CERNER MILLENNIUM Carboxyhemoglob in, Arterial 0.8 % CERNER MILLENNIUM Comment: Nonsmokers: 0.5-1.5% COHB Smokers: Variable, but usually less than 10% Toxic: 20-30% COHB Lethal: Greater than 60% COHB Methemoglobin, Arterial 0.3 % CERNER MILLENNIUM Na Whole Blood 137 mmol/L CERNE R MILLENNIUM K Whole Blood 3.6 mmol/L CERNER MILLENNIUM Comment: Please note: Patients with WBC >100,000 may have falsely elevated Potassium levels. Contact the Clinical Chemistry Laboratory if there are any questions. ICa Whole Blood 1.08(L) mmol/L CERN ER MILLENNIUM Comment: Reference Ranges: ?? < 19 yrs: 1.22 - 1.37 mmol/L ? Adults: 1.15 - 1.33 mmol/L Note: ??Total bilirubin higher than 20 mg/dL may lead to falsely low ionized calcium. CL Whole Blood 110(H) mmol/L CERNE R MILLENNIUM Gluc Whole Bld 152 mg/dL CERNE R MILLENNIUM Comment:Diabetes: >=200 mg/d L plus symptoms. FIO2 Art 40 % CERNER MILLENNIUM PF Ratio Art 165 CERNER MILLENNIUM Blood specimen (specimen) 04/12/2011:57 PM EST 04/12/2011 11:57 PM EST Randy Padilla MD POINT OF CARE TEST O RDERABLES Performing Organization Address [facility] Phone Number [facility] * Lactic acid, plasma (04/12/2011 11:55 PM EST) Lactic Acid 1.8 0.5 - 2.2 mmol/L [facility] Comment:result rechecked-llu Blood specimen (specimen) 04/12/2011 11:55 PM EST 04/13/2011 12:04 AM EST Randy Padilla MD CHEMISTRY ORDERABLES Performing Organization Address [facility] Phone Number [facility] * POCT GLUCOSE LAB USE ONLY (04/12/2011 8:41 PM EST) Pathologist [facility] Glucose, POC 129 60 - 199 mg/dL [facility] Comment: Supplemental ranges: <110 mg/dL before meals <200 mg/dL all other times of the day Blood specimen (specimen) 04/12/2011 8:41 PM EST 04/12/2011 8:41 PM EST Randy Padilla MD POINT OF CARE TEST O RDERABLES Performing Organization Address [facility] Phone Number [facility] * (ABNORMAL) BLOOD GAS 2 ARTERIAL (04/12/2011 8:05 PM EST) pH, Arterial 7.37 7.35 - 7.45 CERNER MILLENNIUM PCO2, Arterial 35 35 - 45 mmHg [facility] MILLENNIUM PO2, Arterial 72(L) 85 - 104 mmHg CERNER MILLENNIUM Bicarbonate, Arterial 19.6(L) 20.0 - 26.0 mmol/L CERNER MILLENNIUM Base Excess, Arterial -5.8(L) -3.0 - 3.0 mmol/L [facility] MILLENNIUM Hgb Blood Gas 12.0(L) 13.7 - 17.5 gm/dL [facility] Comment: Total Hemoglobin (in gm/dL) ?Based on [facility] Hematology ranges: ?Age ?Reference Range Less than 3 days ?14.5 to 22.5 3 days to 2 weeks ? 12.5 to 20.5 2 weeks to 1 month ?10.0 to 18.0 1 to 6 months ?9.4 to 14.0 6 months to 2 years ? 10.5 to 13.5 2 to 6 years ?11.5 to 13.5 6 to 12 years ? 11.5 to 15.5 12 to 18 years (female) 12.0 to 16.0 ? (male) ?? 13.0 to 16.0 > 18 years ? (female) 11.2 to 15.7 ? (male) ?? 13.7 to 17.5 Oxyhemoglobin, Arterial 93.8(L) 94.0 - 97.0 % CERNER MILLENNIUM Carboxyhemoglob in, Arterial 0.9 % CERNER MILLENNIUM Comment: Nonsmokers: 0.5-1.5% COHB Smokers: Variable, but usually less than 10% Toxic: 20-30% COHB Lethal: Greater than 60% COHB Methemoglobin, Arterial 0.3 <=1.5 % CERNER MILLENNIUM Na Whole Blood 137 135 - 145 mmol/L CERNER MILLENNIUM K Whole Blood 3.7 3.5 - 5.0 mmol/L CERNER MILLENNIUM Comment: Please note: Patients with WBC >100,000 may have falsely elevated Potassium levels. Contact the Clinical Chemistry Laboratory if there are any questions. ICa Whole Blood 1.04(L) 1.15 - 1.33 mmol/L CERNER MILLENNIUM Comment: Reference Ranges: ?? < 19 yrs: 1.22 - 1.37 mmol/L ? Adults: 1.15 - 1.33 mmol/L Note: ??Total bilirubin higher than 20 mg/dL may lead to falsely low ionized calcium. CL Whole Blood 112(H) 98 - 107 mmol/L CERNER MILLENNIUM Gluc Whole Bld 129 60 - 199 mg/dL CERNER MILLENNIUM Comment:Diabetes: >=200 mg/d L plus symptoms. FIO2 Art 40 % CERNER MILLENNIUM PF Ratio Art 180 CERNER MILLENNIUM Blood specimen (specimen) 04/12/2011 8:05 PM EST 04/12/2011 8:05 PM EST Randy Padilla MD POINT OF CARE TEST O RDERABLES CERNER MILLENNIUM * (ABNORMAL) DIFFERENTIAL, AUTOMATED (04/12/2011 5:25 PM EST) Neutrophil % 69.5 34.0 - 71.0 % CERNER MILLENNIUM Neutrophil Absolute 11.34(H) 1.50 - 6.30 x10(3)/mc L CERNER MILLENNIUM Lymph % 19.6 19.0 - 53.0 % CERNER MILLENNIUM Lymphocytes Abs 3.2 1.0 - 3.6 x10(3)/mc L CERNER MILLENNIUM Monocyte % 9.2 4.0 - 13.0 % CERNER MILLENNIUM Monocyte Abs 1.5(H) 0.2 - 1.0 x10(3)/mc L CERNER MILLENNIUM Eos % 1.0 0.0 - 7.0 % CERNER MILLENNIUM Eosinophils Abs 0.2 0.0 - 0.5 x10(3)/mc L CERNER MILLENNIUM Basophil % 0.3 0.0 - 2.0 % CERNER MILLENNIUM Baso Absolute 0.1 0.0 - 0.2 x10(3)/mc L CERNER MILLENNIUM Immature Gran % 0.40 0.00 - 0.66 % CERNER MILLENNIUM Comment: Immature granulocytes(IG's)percentage and absolute count will include metamyelocytes, myelocytes, and promyelocytes. Blood smears from CBCs yielding IG's will be scanned manually for concordance. If this scan disagrees with the automated IG or if promyelocytes are noted, a manual differential will be performed. Immature Gran Absolute 0.07(H) 0.00 - 0.05 x10(3)/mc L CERNER MILLENNIUM Blood specimen (specimen) 04/12/2011 5:25 PM EST 04/12/2011 5:40 PM EST Randy Padilla MD HEMATOLOGY ORDERABLE S Performing Organization Address [facility] Phone Number CERNER MILLENNIUM * (ABNORMAL) Lactic acid, plasma (04/12/2011 5:25 PM EST) Lactic Acid 4.5(H) 0.5 - 2.2 mmol/L CERNER MILLENNIUM Blood specimen (specimen) 04/12/2011 5:25 PM EST 04/12/2011 5:40 PM EST Randy Padilla MD CHEMISTRY ORDERABLES Performing Organization Address [facility] Phone Number CERNER MILLENNIUM * (ABNORMAL) CBC (with Diff) (04/12/2011 5:25 PM EST) White Blood Cell 16.3(H) 4.0 - 10.0 x10(3)/mc L CERNER MILLENNIUM Red Blood Cell 3.90(L) 4.63 - 6.08 x10(6)/mc L CERNER MILLENNIUM Hemoglobin 12.0(L) 13.7 - 17.5 gm/dL CERNER MILLENNIUM Hematocrit 35.6(L) 40.0 - 51.0 % CERNER MILLENNIUM Mean Cell Volume 91.3 79.0 - 92.0 fL CERNER MILLENNIUM Mean Cell Hemoglobin 30.8 25.6 - 32.2 pg CERNER MILLENNIUM Mean Cell Hemoglobin Concentration 33.7 32.0 - 36.5 gm/dL CERNER MILLENNIUM Platelet 170 145 - 370 x10(3)/mc L CERNER MILLENNIUM RDW Standard Deviation 40.4 35.0 - 46.0 fL CERNER MILLENNIUM RDW coefficient of variation 12.3 10.9 - 14.4 % CERNER MILLENNIUM Mean Platelet Volume 10.2 9.0 - 12.0 fL CERNER MILLENNIUM Blood specimen (specimen) 04/12/2011 5:25 PM EST 04/12/2011 5:40 PM EST Randy Padilla MD HEMATOLOGY ORDERABLE S DONNIE DIETZ * XR CHEST PA OR AP- 1 VIEW (04/12/2011 4:52 PM EST) Anatomical Region Laterality Modality Chest N/A Radiographic Lilian ging 04/12/2011 4:52 PM EST Impressions 04/16/2011 11:24 AM EST IMPRESSION: 1. Unsatisfactory position of endotracheal tube, which terminates at the level of the radha. Retraction is recommended. This was subsequently done, see follow up portable chest radiograph on 04/13/11 at 0055 hours. 2. Lower degree of lung inflation, bilaterally, with perihilar and basilar atelectasis. Narrative 04/16/2011 11:24 AM EST PORTABLE AP 45-DEGREES SEMI-UPRIGHT CHEST, 04/12/11, 1645 HOURS: INDICATION: ??ET tube placement. COMPARISON: ??Portable AP 45-degrees semi-upright chest, 04/12/11 at 0755 hours. FINDINGS: ??There has been interval intubation with the endotracheal tube terminating at the level of the radha. Lower degree of lung inflation with developing bilateral perihilar and basilar opacities likely reflecting atelectasis. Allowing for the lower degree of lung inflation, the cardiomediastinal silhouette is likely stable. No large pleural effusion or pneumothorax. Procedure Note Estela Solares MD - 04/16/2011 PORTABLE AP 45-DEGREES SEMI-UPRIGHT CHEST, 04/12/11, 1645 HOURS: INDICATION: ET tube placement. COMPARISON: Portable AP 45-degrees semi-upright chest, 04/12/11 at 0755hours. FINDINGS: There has been interval intubation with the endotracheal tube terminating at the level of the radha. Lower degree of lung inflationwith developing bilateral perihilar and basilar opacities likely reflecting atelectasis. Allowing for the lower degree of lung inflation, the cardiomediastinal silhouette is likely stable. No large pleural effusionor pneumothorax. IMPRESSION IMPRESSION: 1. Unsatisfactory position of endotracheal tube, which terminates at thelevel of the radha. Retraction is recommended. This was subsequently done, see follow up portable chest radiograph on 04/13/11 at 0055 hours. 2. Lower degree of lung inflation, bilaterally, with perihilar and basilar atelectasis. Veronique Estrada MD IMG DX ORDERABLES * (ABNORMAL) BLOOD GAS 2 ARTERIAL (04/12/2011 4:12 PM EST) pH, Arterial 7.29(Criti juan manuel) CERNER MILLENNIUM Comment:Noted by instrument repairer. PCO2, Arterial 41 mmHg CERNE R MILLENNIUM PO2, Arterial 74(L) mmHg CERNER MILLENNIUM Bicarbonate, Arterial 19.6(L) mmol/L CERNER MILLENNIUM Base Excess, Arterial -6.9(L) mmol/L CERNER MILLENNIUM Hgb Blood Gas 13.0(L) gm/dL CERNER MILLENNIUM Comment: Total Hemoglobin (in gm/dL) ?Based on [facility] Hematology ranges: ?Age ?Reference Range Less than 3 days ?14.5 to 22.5 3 days to 2 weeks ? 12.5 to 20.5 2 weeks to 1 month ?10.0 to 18.0 1 to 6 months ?9.4 to 14.0 6 months to 2 years ? 10.5 to 13.5 2 to 6 years ?11.5 to 13.5 6 to 12 years ? 11.5 to 15.5 12 to 18 years (female) 12.0 to 16.0 ? (male) ?? 13.0 to 16.0 > 18 years ? (female) 11.2 to 15.7 ? (male) ?? 13.7 to 17.5 Oxyhemoglobin, Arterial 93.2(L) % CERNER MILLENNIUM Carboxyhemoglob in, Arterial 1.0 % CERNER MILLENNIUM Comment: Nonsmokers: 0.5-1.5% COHB Smokers: Variable, but usually less than 10% Toxic: 20-30% COHB Lethal: Greater than 60% COHB Methemoglobin, Arterial 0.4 % CERNER MILLENNIUM Na Whole Blood 137 mmol/L CERNE R MILLENNIUM K Whole Blood 4.4 mmol/L CERNER MILLENNIUM Comment: Please note: Patients with WBC >100,000 may have falsely elevated Potassium levels. Contact the Clinical Chemistry Laboratory if there are any questions. ICa Whole Blood 1.06(L) mmol/L CERN ER MILLENNIUM Comment: Reference Ranges: ?? < 19 yrs: 1.22 - 1.37 mmol/L ? Adults: 1.15 - 1.33 mmol/L Note: ??Total bilirubin higher than 20 mg/dL may lead to falsely low ionized calcium. CL Whole Blood 109(H) mmol/L CERNE R MILLENNIUM Gluc Whole Bld 185 mg/dL CERNE R MILLENNIUM Comment:Diabetes: >=200 mg/d L plus symptoms. FIO2 Art 40 % CERNER MILLENNIUM PF Ratio Art 185 CERNER MILLENNIUM Blood specimen (specimen) 04/12/2011 4:12 PM EST 04/12/2011 4:12 PM EST Randy Padilla MD POINT OF CARE TEST O BHASKAR Performing Organization Address [facility] Phone Number CERNER MILLENNIUM * POCT GLUCOSE LAB USE ONLY (04/12/2011 4:09 PM EST) Glucose, POC 181 60 - 199 mg/dL CERNER MILLENNIUM Comment: Supplemental ranges: <110 mg/dL before meals <200 mg/dL all other times of the day Blood specimen (specimen) 04/12/2011 4:09 PM EST 04/12/2011 4:09 PM EST Randy Padilla MD POINT OF CARE TEST O KORTNEYERAJAZZY Performing Organization Address [facility] Co de Phone Number CERNER MILLENNIUM * (ABNORMAL) POCT GLUCOSE LAB USE ONLY (04/12/2011 3:49 PM EST) Glucose, POC 217(H) 60 - 199 mg/dL CERNER MILLENNIUM Comment: Supplemental ranges: <110 mg/dL before meals <200 mg/dL all other times of the day Blood specimen (specimen) 04/12/2011 3:49 PM EST 04/12/2011 3:49 PM EST Randy Padilla MD POINT OF CARE TEST O RDERABLES [facility] * (ABNORMAL) BLOOD GAS ARTERIAL (04/12/2011 3:10 PM EST) pH, Arterial 7.26(Criti juan manuel) 7.35 - 7.45 CERNER MILLENNIUM Comment:Called by: JUSTIN, Read back by: KIM ORELLANA, Date/Time:04/12/11 15:29. PCO2, Arterial 48(H) 35 - 45 mmHg CERNER MILLENNIUM PO2, Arterial 70(L) 85 - 104 mmHg CERNER MILLENNIUM Bicarbonate, Arterial 21.1 20.0 - 26.0 mmol/L CERNER MILLENNIUM Base Excess, Arterial -6.2(L) -3.0 - 3.0 mmol/L CERNER MILLENNIUM Hgb Blood Gas 12.4(L) 13.7 - 17.5 gm/dL CERNER MILLENNIUM Comment: Total Hemoglobin (in gm/dL) ?Based on [facility] Hematology ranges: ?Age ?Reference Range Less than 3 days ?14.5 to 22.5 3 days to 2 weeks ? 12.5 to 20.5 2 weeks to 1 month ?10.0 to 18.0 1 to 6 months ?9.4 to 14.0 6 months to 2 years ? 10.5 to 13.5 2 to 6 years ?11.5 to 13.5 6 to 12 years ? 11.5 to 15.5 12 to 18 years (female) 12.0 to 16.0 ? (male) ?? 13.0 to 16.0 > 18 years ? (female) 11.2 to 15.7 ? (male) ?? 13.7 to 17.5 Oxyhemoglobin, Arterial 91.2(L) 94.0 - 97.0 % CERNER MILLENNIUM Carboxyhemoglob in, Arterial 1.5 % CERNER MILLENNIUM Comment: Nonsmokers: ??0.5-1.5% COHB Smokers: ??Variable, but usually less than 10% Toxic: 20 - 30% COHB Lethal: ??Greater than 60% COHB Methemoglobin, Arterial 0.1 <=1.5 % CERNER MILLENNIUM Na Whole Blood 138 135 - 145 mmol/L CERNER MILLENNIUM K Whole Blood 4.0 3.5 - 5.0 mmol/L CERNER MILLENNIUM Comment: Please note: ??Patients with WBC >100,000 may have falsely elevated Potassium levels. ??Contact the Clinical Chemistry Laboratory if there are any questions. ICa Whole Blood 1.01(L) 1.15 - 1.33 mmol/L CERNER MILLENNIUM Comment: Reference Ranges: ?? < 19 yrs: 1.22 - 1.37 mmol/L ? Adults: 1.15 - 1.33 mmol/L Note: ??Total bilirubin higher than 20 mg/dL may lead to falsely low ionized calcium. CL Whole Blood 109(H) 98 - 107 mmol/L CERNER MILLENNIUM Gluc Whole Bld 175 60 - 199 mg/dL CERNER MILLENNIUM Comment:Diabetes: >=200 mg/d L plus symptoms. Lactate WB 3.6(H) 0.5 - 2.2 mmol/L CERNER MILLENNIUM FIO2 Art 40 % CERNER MILLENNIUM PF Ratio Art 175 CERNER MILLENNIUM Blood specimen (specimen) 04/12/2011 3:10 PM EST 04/12/2011 3:21 PM EST Randy Padilla MD CHEMISTRY ORDERABLES Performing Organization Address [facility] de Phone Number DONNIE DIETZ * POCT GLUCOSE LAB USE ONLY (04/12/2011 2:57 PM EST) Glucose, POC 198 60 - 199 mg/dL DONNIE HIGGINSENNIUM Comment: Supplemental ranges: <110 mg/dL before meals <200 mg/dL all other times of the day Blood specimen (specimen) 04/12/2011 2:57 PM EST 04/12/2011 2:57 PM EST Randy Padilla MD POINT OF CARE TEST O RDERABLES Performing Organization Address [facility] Phone Number DONNIE DIETZ * KAUR HOLD (04/12/2011 2:55 PM EST) Pathologist [facility] Kaur Hold Sample in lab. [facility] Blood specimen (specimen) 04/12/2011 2:55 PM EST 04/12/2011 3:30 PM EST Randy Padilla MD CHEMISTRY ORDERABLES Performing Organization Address [facility] de Phone Number DONNIE DIETZ * (ABNORMAL) Hepatic Function Panel (04/12/2011 2:55 PM EST) Pathologist [facility] Protein, Total 4.6(L) 6.4 - 8.3 gm/dL CERNER MILLENNIUM Albumin 2.7(L) 3.2 - 5.2 gm/dL CERNER MILLENNIUM Aspartate Aminotransferase 28 0 - 39 unit/L CERNER MILLENNIUM Alanine Aminotransferase 42 0 - 55 unit/L CERNER MILLENNIUM Alkaline Phosphatase 62 40 - 120 unit/L CERNER MILLENNIUM Bilirubin, Total 0.3 0.2 - 1.3 mg/dL CERNER MILLENNIUM Bilirubin, Direct 0.1 0.0 - 0.3 mg/dL CERNER MILLENNIUM Blood specimen (specimen) 04/12/2011 2:55 PM EST 04/12/2011 3:22 PM EST Randy Padilla MD CHEMISTRY ORDERABLES Performing Organization Address [facility] de Phone Number [facility] VERNONIUM * (ABNORMAL) Phosphorus (04/12/2011 2:55 PM EST) Phosphorus 4.6(H) 2.5 - 4.5 mg/dL CERNER MILLENNIUM Blood specimen (specimen) 04/12/2011 2:55 PM EST 04/12/2011 3:22 PM EST Randy Padilla MD CHEMISTRY ORDERABLES Performing Organization Address [facility] Phone Number [facility] * (ABNORMAL) Magnesium (04/12/2011 2:55 PM EST) Magnesium 0.54(L) 0.69 - 1.07 mmol/L [facility] Blood specimen (specimen) 04/12/2011 2:55 PM EST 04/12/2011 3:22 PM EST Randy Padilla MD CHEMISTRY ORDERABLES Performing Organization Address [facility] Phone Number [facility] * (ABNORMAL) Prothrombin Time (04/12/2011 2:55 PM EST) Prothrombin Time 15.8(H) 12.3 - 14.7 sec [facility] MILLENNIUM Comment: [facility] Transfusion Committee Guidelines: INR less than 2.0, PTT less than OR equal to 43.5 seconds, or Fibrinogen greater than or equal to 100 mg/dl indicate adequate procoagulant activity for hemostasis in patients without underlying bleeding disorders. International Normalization Ratio 1.2(H) 0.9 - 1.1 [facility] MILL[facility] Blood specimen (specimen) 04/12/2011 2:55 PM EST 04/12/2011 3:22 PM EST Randy Padilla MD HEMATOLOGY ORDERABLE S Performing Organization Address [facility] Phone Number [facility] * APTT (04/12/2011 2:55 PM EST) Partial Thromboplastin Time 32 25 - 37 sec CERNER MILLENNIUM Comment: Recommended therapeutic PTT range for full dose unfractionated heparin is 80-114 seconds. Blood specimen (specimen) 04/12/2011 2:55 PM EST 04/12/2011 3:22 PM EST Randy Padilla MD HEMATOLOGY ORDERABLE S CERNER MILLENNIUM * (ABNORMAL) Basic Metabolic Panel (non-fasting) (04/12/2011 2:55 PM EST) Glucose 189 60 - 199 mg/dL CERNER MILLENNIUM Comment:Diabetes: >=200 mg/d L plus symptoms Blood Urea Nitrogen 13 10 - 20 mg/dL CERNER MILLENNIUM Creatinine 1.03 0.80 - 1.50 mg/dL CERNER MILLENNIUM Sodium 139 135 - 145 mmol/L CERNER MILLENNIUM Potassium 4.2 3.5 - 5.0 mmol/L CERNER MILLENNIUM Comment: Please note: ??Patients with WBC >100,000 may have falsely elevated Potassium levels. ??For accurate Potassium quantification in these patients send serum separator tube (gold top) for subsequent determinations. ??Contact the Clinical Chemistry Laboratory if there are any questions. Chloride 109(H) 98 - 107 mmol/L CERNER MILLENNIUM Comment:Result rechecked. Carbon Dioxide 20(L) 22 - 31 mmol/L CERNER MILLENNIUM Anion Gap 10 5 - 15 mmol/L CERNER MILLENNIUM Calcium 6.8(Criti juan manuel) 8.5 - 10.5 mg/dL CERNER MILLENNIUM Comment: Result rechecked. Called by: osvaldo, Read back by: titi engle, Date/Time:04/12/11 16:07. Est Glomerular Filtration Rate >60 >=60 CERNER MILLENNIUM Comment: The National Kidney Disease Education Program (NKDEP) has recommended all laboratories report estimated GFR (eGFR) along with plasma creatinine measurements to assist you with recognition of early kidney disease. Caveats: ??Plasma creatinine should be at steady-state (unchanged within the past week). For patients multiply eGFR by 1.2.MDRD equation has not been validated for pediatric patients and is only valid for patients with age >= 18 years. At present, NKDEP does NOT recommend using the MDRD equation for drug dosing purposes and pharmacists should continue to use their current dosing methods. In addition, numerical eGFR values greater than 60 ml/min/1.73 square meters should be treated as > 60, and not an exact number due to greater inaccuracies at these higher values. Per NKDEP, they classify normal renal function as any GFR >60ml/min/1.73 square meters; chronic kidney disease when GFR <60, and renal failure when GFR <15. ??This calculation may not be valid for patients with atypical muscle mass (very lean or obese), acute renal failure, and in patients with diabetic kidney disease. References: http://nkdep.nih.gov/resources/NKDEP_Suggestn4Labs_0606_508.pdf http://www.kidney.org/professionals/kls/pdf/faq_gfr.pdf Blood specimen (specimen) 04/12/2011 2:55 PM EST 04/12/2011 3:22 PM EST Randy Padilla MD CHEMISTRY ORDERABLES CERNER MILLENNIUM * (ABNORMAL) BLOOD GAS 2 ARTERIAL (04/12/2011 2:06 PM EST) pH, Arterial 7.21(Criti juan manuel) CERNER MILLENNIUM Comment:Noted by instrument repairer. PCO2, Arterial 41 mmHg CERNE R MILLENNIUM PO2, Arterial 73(L) mmHg CERNER MILLENNIUM Bicarbonate, Arterial 16.1(L) mmol/L CERNER MILLENNIUM Base Excess, Arterial -11.7(L) mmol/L CERNER MILLENNIUM Hgb Blood Gas 12.4(L) gm/dL CERNER MILLENNIUM Comment: Total Hemoglobin (in gm/dL) ?Based on [facility] Hematology ranges: ?Age ?Reference Range Less than 3 days ?14.5 to 22.5 3 days to 2 weeks ? 12.5 to 20.5 2 weeks to 1 month ?10.0 to 18.0 1 to 6 months ?9.4 to 14.0 6 months to 2 years ? 10.5 to 13.5 2 to 6 years ?11.5 to 13.5 6 to 12 years ? 11.5 to 15.5 12 to 18 years (female) 12.0 to 16.0 ? (male) ?? 13.0 to 16.0 > 18 years ? (female) 11.2 to 15.7 ? (male) ?? 13.7 to 17.5 Oxyhemoglobin, Arterial 90.8(L) % CERNER MILLENNIUM Carboxyhemoglob in, Arterial 1.7 % CERNER MILLENNIUM Comment: Nonsmokers: 0.5-1.5% COHB Smokers: Variable, but usually less than 10% Toxic: 20-30% COHB Lethal: Greater than 60% COHB Methemoglobin, Arterial 0.3 % CERNER MILLENNIUM Na Whole Blood 138 mmol/L CERNE R MILLENNIUM K Whole Blood 4.1 mmol/L CERNER MILLENNIUM Comment: Please note: Patients with WBC >100,000 may have falsely elevated Potassium levels. Contact the Clinical Chemistry Laboratory if there are any questions. ICa Whole Blood 1.08(L) mmol/L CERN ER MILLENNIUM Comment: Reference Ranges: ?? < 19 yrs: 1.22 - 1.37 mmol/L ? Adults: 1.15 - 1.33 mmol/L Note: ??Total bilirubin higher than 20 mg/dL may lead to falsely low ionized calcium. CL Whole Blood 109(H) mmol/L CERNE R MILLENNIUM Gluc Whole Bld 169 mg/dL CERNE R MILLENNIUM Comment:Diabetes: >=200 mg/d L plus symptoms. Blood specimen (specimen) 04/12/2011 2:06 PM EST 04/12/2011 2:06 PM EST Randy Padilla MD POINT OF CARE TEST O RDERABLES CERNER MILLENNIUM * (ABNORMAL) BLOOD GAS 2 ARTERIAL (04/12/2011 1:48 PM EST) pH, Arterial 7.20(Criti juan manuel) CERNER MILLENNIUM Comment:Noted by instrument repairer. PCO2, Arterial 48(H) mmHg CERNE R MILLENNIUM PO2, Arterial 109(H) mmHg CERNER MILLENNIUM Bicarbonate, Arterial 18.5(L) mmol/L CERNER MILLENNIUM Base Excess, Arterial -9.5(L) mmol/L CERNER MILLENNIUM Hgb Blood Gas 13.0(L) gm/dL CERNER MILLENNIUM Comment: Total Hemoglobin (in gm/dL) ?Based on [facility] [place] Hematology ranges: ?Age ?Reference Range Less than 3 days ?14.5 to 22.5 3 days to 2 weeks ? 12.5 to 20.5 2 weeks to 1 month ?10.0 to 18.0 1 to 6 months ?9.4 to 14.0 6 months to 2 years ? 10.5 to 13.5 2 to 6 years ?11.5 to 13.5 6 to 12 years ? 11.5 to 15.5 12 to 18 years (female) 12.0 to 16.0 ? (male) ?? 13.0 to 16.0 > 18 years ? (female) 11.2 to 15.7 ? (male) ?? 13.7 to 17.5 Oxyhemoglobin, Arterial 96.1 % CERNER MILLENNIUM Carboxyhemoglob in, Arterial 1.4 % CERNER MILLENNIUM Comment: Nonsmokers: 0.5-1.5% COHB Smokers: Variable, but usually less than 10% Toxic: 20-30% COHB Lethal: Greater than 60% COHB Methemoglobin, Arterial 0.2 % CERNER MILLENNIUM Na Whole Blood 137 mmol/L CERNE R MILLENNIUM K Whole Blood 4.3 mmol/L CERNER MILLENNIUM Comment: Please note: Patients with WBC >100,000 may have falsely elevated Potassium levels. Contact the Clinical Chemistry Laboratory if there are any questions. ICa Whole Blood 1.11(L) mmol/L CERN ER MILLENNIUM Comment: Reference Ranges: ?? < 19 yrs: 1.22 - 1.37 mmol/L ? Adults: 1.15 - 1.33 mmol/L Note: ??Total bilirubin higher than 20 mg/dL may lead to falsely low ionized calcium. CL Whole Blood 108(H) mmol/L CERNE R MILLENNIUM Gluc Whole Bld 198 mg/dL CERNE R MILLENNIUM Comment:Diabetes: >=200 mg/d L plus symptoms. Blood specimen (specimen) 04/12/2011 1:48 PM EST 04/12/2011 1:48 PM EST Randy Padilla MD POINT OF CARE TEST O BHASKAR Performing Organization Address [facility] Co de Phone Number CERNER MILLENNIUM * (ABNORMAL) POCT GLUCOSE LAB USE ONLY (04/12/2011 12:34 PM EST) Glucose, POC 207(H) 60 - 199 mg/dL CERNER MILLENNIUM Comment: Supplemental ranges: <110 mg/dL before meals <200 mg/dL all other times of the day Blood specimen (specimen) 04/12/2011 12:34 PM EST 04/12/2011 12:34 PM EST Randy Padilla MD POINT OF CARE TEST O BHASKAR CERNER MILLENNIUM * (ABNORMAL) BLOOD GAS 2 ARTERIAL (04/12/2011 11:27 AM EST) pH, Arterial 7.38 CERNER MILLENNIUM PCO2, Arterial 35 mmHg CERNE R MILLENNIUM PO2, Arterial 96 mmHg CERNER MILLENNIUM Bicarbonate, Arterial 20.6 mmol/L CERNER MILLENNIUM Base Excess, Arterial -4.5(L) mmol/L CERNER MILLENNIUM Hgb Blood Gas 15.2 gm/dL CERNER MILLENNIUM Comment: Total Hemoglobin (in gm/dL) ?Based on [facility] [place] Hematology ranges: ?Age ?Reference Range Less than 3 days ?14.5 to 22.5 3 days to 2 weeks ? 12.5 to 20.5 2 weeks to 1 month ?10.0 to 18.0 1 to 6 months ?9.4 to 14.0 6 months to 2 years ? 10.5 to 13.5 2 to 6 years ?11.5 to 13.5 6 to 12 years ? 11.5 to 15.5 12 to 18 years (female) 12.0 to 16.0 ? (male) ?? 13.0 to 16.0 > 18 years ? (female) 11.2 to 15.7 ? (male) ?? 13.7 to 17.5 Oxyhemoglobin, Arterial 95.9 % CERNER MILLENNIUM Carboxyhemoglob in, Arterial 1.8 % CERNER MILLENNIUM Comment: Nonsmokers: 0.5-1.5% COHB Smokers: Variable, but usually less than 10% Toxic: 20-30% COHB Lethal: Greater than 60% COHB Methemoglobin, Arterial 0.3 % CERNER MILLENNIUM Na Whole Blood 137 mmol/L CERNE R MILLENNIUM K Whole Blood 3.8 mmol/L CERNER MILLENNIUM Comment: Please note: Patients with WBC >100,000 may have falsely elevated Potassium levels. Contact the Clinical Chemistry Laboratory if there are any questions. ICa Whole Blood 1.13(L) mmol/L CERN ER MILLENNIUM Comment: Reference Ranges: ?? < 19 yrs: 1.22 - 1.37 mmol/L ? Adults: 1.15 - 1.33 mmol/L Note: ??Total bilirubin higher than 20 mg/dL may lead to falsely low ionized calcium. CL Whole Blood 104 mmol/L CERNE R GISELAENNIUM Gluc Whole Bld 260(H) mg/dL CERNE R GISELAENNIUM Comment:Diabetes: >=200 mg/d L plus symptoms. FIO2 Art 21 % DONNIE JUNIORIUM PF Ratio Art 457 DONNIE JUNIORIUM Blood specimen (specimen) 04/12/2011 11:27 AM EST 04/12/2011 11:27 AM EST Randy Padilla MD POINT OF CARE TEST O RDERAJAZZY Performing Organization Address [facility] Co de Phone Number DONNIE DIETZ * (ABNORMAL) POCT GLUCOSE LAB USE ONLY (04/12/2011 9:53 AM EST) Pathologist [facility] Glucose, POC 286(H) 60 - 199 mg/dL [facility] Comment: Supplemental ranges: <110 mg/dL before meals <200 mg/dL all other times of the day Blood specimen (specimen) 04/12/2011 9:53 AM EST 04/12/2011 9:53 AM EST Randy Padilla MD POINT OF CARE TEST O BHASKAR Performing Organization Address [facility] Phone Number DONNIE DIETZ * ANTIBODY SCREEN (04/12/2011 8:25 AM EST) Pathologist [facility] Ab Screen Interp Negative DONNIE DIETZ Expires at [id number] on: [id number] DONNIE DIETZ Blood specimen (specimen) 04/12/2011 8:25 AM EST 04/12/2011 8:38 AM EST Erik Gill MD BLOOD BANK LAB ORDER BRIANNE Performing Organization Address [facility] Phone Number DONNIE DIETZ * ABO/RH TYPING (04/12/2011 8:25 AM EST) ABORH Type O Pos DONNIE DIETZ Blood specimen (specimen) 04/12/2011 8:25 AM EST 04/12/2011 8:38 AM EST Erik Gill MD BLOOD BANK LAB ORDER BRIANNE DONNIE DIETZ * Green Tube HOLD (04/12/2011 8:25 AM EST) Green Hold Sample in lab. DONNIE DIETZ Blood specimen (specimen) 04/12/2011 8:25 AM EST 04/12/2011 8:38 AM EST Erik Gill MD CHEMISTRY ORDERABLES Performing Organization Address [facility] Co de Phone Number DONNIE DIETZ * Lavender Tube HOLD (04/12/2011 8:25 AM EST) Lavender Hold Sample in lab. DONNIE DIETZ Blood specimen (specimen) 04/12/2011 8:25 AM EST 04/12/2011 8:38 AM EST Erik Gill MD HEMATOLOGY ORDERABLE S Performing Organization Address [facility] Co de Phone Number DONNIE DIETZ * XR CHEST PA OR AP- 1 VIEW (04/12/2011 8:00 AM EST) Anatomical Region Laterality Modality Chest N/A Radiographic Lilian ging 04/12/2011 8:00 AM EST Impressions 04/12/2011 11:16 AM EST IMPRESSION: No opacities. Narrative 04/12/2011 11:16 AM EST CHEST, PORTABLE: HISTORY: ??Preop for abdominal aortic aneurysm. FINDINGS: ??Lungs clear. No effusion. The left CP angle is not included on this exam. Procedure Note Yoli Valenzuela MD - 04/12/2011 CHEST, PORTABLE: HISTORY: Preop for abdominal aortic aneurysm. FINDINGS: Lungs clear. No effusion. The left CP angle is not included onthis exam. IMPRESSION IMPRESSION: No opacities. Robyn Fowler MD IMG DX ORDERABLES * EKG 12 Lead (04/12/2011 7:31 AM EST) Ventricular rate 67 BPM MUSE SYSTEM Atrial Rate 67 BPM MUSE SYSTEM P-R Interval 250 ms MUSE SYSTEM QRS Duration 94 ms MUSE SYSTEM Q-T Interval 426 ms MUSE SYSTEM QTC Calculated (Bezet) 450 ms MUSE SYSTEM Calculated P [place] 33 degrees MUSE SYSTEM Calculated R [place] 50 degrees MUSE SYSTEM Calculated T [place] 66 degrees MUSE SYSTEM INTERPRETATION Sinus rhythm with 1st degree A-V block Otherwise normal ECG No previous ECGs available Confirmed by MD NIKKI, RUTH ([id number]) on 04/12/2011 12:43:10 PM MUSE SYSTEM 04/12/2011 7:31 AM EST 04/12/2011 12:43 PM EST Robyn Fowler MD ECG ORDERABLES MUSE SYSTEM * Urine culture Straight Catheter Urine (04/12/2011 7:26 AM EST) Urine Culture ? Patient Name: CALI THOMPSON ?Ordered By: ROBYN FOWLER ? MR#: [id number] ?LOC: ??[facility] ? /Sex: ?? 7 (75 years), ? Male ? PROCEDURE: Urine Culture ?SOURCE: [facility] ? COLLECTED: 04/12/2011 07:26 ? STARTED: 04/12/2011 08:10 ? FINAL REPORT ? Final Report ? Verified: 06:39 ? No growth (Less than 1,000 cfu/ml). ? ____ CERNER MILLENNIUM Urine specimen obtained via straight catheter (specimen) 04/12/2011 7:26 AM EST 04/12/2011 8:10 AM EST Robyn Fowler MD MICROBIOLOGY - GENER AL ORDERABLES Performing Organization Address [facility] Co de Phone Number CERNER MILLENNIUM * (ABNORMAL) Urinalysis with microscopic (04/12/2011 7:25 AM EST) Glucose, Urine Dipstick >1000(Critic al) Negative mg/dL CERNER MILLENNIUM Comment:NOT CALLED KETONES N OT CRITICAL Protein, Urine Dipstick Negative mg/dL CERNER MILLENNIUM Bilirubin, Urine Dipstick Negative Negative mg/dL CERNER MILLENNIUM Urobilinogen, Urine Dipstick Normal mg/dL CERNER MILLENNIUM pH, Urn (dipstick) 6.5 5.0 - 8.0 CERNER MILLENNIUM Blood, Urine Dipstick Negative mg/dL CERNER MILLENNIUM Ketone, Urine Dipstick 10(A) Neg mg/dL CERNER MILLENNIUM Nitrite, Urine Dipstick Negative CERNER MILLENNIUM Leukocytes, Urine Dipstick Negative mcL CERNER MILLENNIUM Appearance, Urine Dipstick Clear Clear CERNER MILLENNIUM Specific [place] Urine Automated 1.021 1.002 - 1.030 CERNER MILLENNIUM Color, Urine Dipstick Yellow Yellow CERNER MILLENNIUM RBC, Urine Not Present 0 - 3 CERNER MILLENNIUM WBC, Urine Not Present 0 - 3 CERNER MILLENNIUM Urine specimen (specimen) 04/12/2011 7:25 AM EST 04/12/2011 7:39 AM EST Robyn Fowler MD URINE ORDERABLES Performing Organization Address [facility] Co de Phone Number CERNER MILLENNIUM * (ABNORMAL) DIFFERENTIAL, AUTOMATED (04/12/2011 7:15 AM EST) Neutrophil % 76.9(H) 34.0 - 71.0 % CERNER MILLENNIUM Neutrophil Absolute 11.73(H) 1.50 - 6.30 x10(3)/mc L CERNER MILLENNIUM Lymph % 17.5(L) 19.0 - 53.0 % CERNER MILLENNIUM Lymphocytes Abs 2.7 1.0 - 3.6 x10(3)/mc L CERNER MILLENNIUM Monocyte % 4.8 4.0 - 13.0 % CERNER MILLENNIUM Monocyte Abs 0.7 0.2 - 1.0 x10(3)/mc L CERNER MILLENNIUM Eos % 0.3 0.0 - 7.0 % CERNER MILLENNIUM Eosinophils Abs 0.1 0.0 - 0.5 x10(3)/mc L CERNER MILLENNIUM Basophil % 0.3 0.0 - 2.0 % CERNER MILLENNIUM Baso Absolute 0.0 0.0 - 0.2 x10(3)/mc L CERNER MILLENNIUM Immature Gran % 0.20 0.00 - 0.66 % CERNER MILLENNIUM Comment: Immature granulocytes(IG's)percentage and absolute count will include metamyelocytes, myelocytes, and promyelocytes. Blood smears from CBCs yielding IG's will be scanned manually for concordance. If this scan disagrees with the automated IG or if promyelocytes are noted, a manual differential will be performed. Immature Gran Absolute 0.03 0.00 - 0.05 x10(3)/mc L CERNER MILLENNIUM Blood specimen (specimen) 04/12/2011 7:15 AM EST 04/12/2011 7:34 AM EST Robyn Fowler MD HEMATOLOGY ORDERABLE S DONNIE JUNIORIUM * CK (04/12/2011 7:15 AM EST) Creatine Kinase 57 0 - 200 unit/L CERNER MILLENNIUM Blood specimen (specimen) 04/12/2011 7:15 AM EST 04/12/2011 7:34 AM EST Robyn Fowler MD CHEMISTRY ORDERABLES CERNER MILLENNIUM * Troponin T (04/12/2011 7:15 AM EST) Troponin-T <0.03 <=0.03 ng/mL [facility] Comment: 0.03 ng/mL: Represents the 99th percentile upper reference limit for normals. >0.03 ng/mL: Elevated cardiac troponin T level indicative of myocardial damage. Diagnosis of acute, evolving or recent IA requires a typical rise and gradual fall of cTnT with at least ONE of the following: a) Ischemic symptoms b) Development of pathologic Q waves on the ECG c) ECG changes indicative of eschemia (S-T segment elevation/depression) d) Coronary artery intervention Serial bloods should be obtained for testing on admission, at 6 to 9 hrs and again at 12 to 24 hrs if earlier samples are negative and the clinical index of suspicion is high. Reference: [Myocardial infarction redefined a consensus document of the Joint Society of Cardiology/British College of Cardiology Committee for the redefinition of myocardial infarction. Journal of the British College of Cardiology 2000; 36: 959-969] Blood specimen (specimen) 04/12/2011 7:15 AM EST 04/12/2011 7:34 AM EST Robyn Fowler MD CHEMISTRY ORDERABLES Performing Organization Address [facility] de Phone Number [facility] * APTT (04/12/2011 7:15 AM EST) Partial Thromboplastin Time 28 25 - 37 sec [facility] Comment: Recommended therapeutic PTT range for full dose unfractionated heparin is 80-114 seconds. Blood specimen (specimen) 04/12/2011 7:15 AM EST 04/12/2011 7:34 AM EST Robyn Fowler MD HEMATOLOGY ORDERABLE S Performing Organization Address [facility] Phone Number [facility] * Prothrombin Time (04/12/2011 7:15 AM EST) Prothrombin Time 13.2 12.3 - 14.7 sec [facility] Comment: [facility] Transfusion Committee Guidelines: INR less than 2.0, PTT less than OR equal to 43.5 seconds, or Fibrinogen greater than or equal to 100 mg/dl indicate adequate procoagulant activity for hemostasis in patients without underlying bleeding disorders. International Normalization Ratio 1.0 0.9 - 1.1 [facility] Blood specimen (specimen) 04/12/2011 7:15 AM EST 04/12/2011 7:34 AM EST Robyn Fowler MD HEMATOLOGY ORDERABLE S Performing Organization Address [facility] de Phone Number [facility] * (ABNORMAL) Glucose, random (04/12/2011 7:15 AM EST) Glucose 299(H) 60 - 199 mg/dL [facility] Comment:Diabetes: >=200 mg/d L plus symptoms Blood specimen (specimen) 04/12/2011 7:15 AM EST 04/12/2011 7:34 AM EST Robyn Fowler MD CHEMISTRY ORDERABLES Performing Organization Address [facility] Phone Number [facility] * Creatinine, serum (04/12/2011 7:15 AM EST) Creatinine 0.98 0.80 - 1.50 mg/dL [facility] AvesoENNIUM Est Glomerular Filtration Rate >60 >=60 [facility] MILLENNIUM Comment: The National Kidney Disease Education Program (NKDEP) has recommended all laboratories report estimated GFR (eGFR) along with plasma creatinine measurements to assist you with recognition of early kidney disease. Caveats: ??Plasma creatinine should be at steady-state (unchanged within the past week). For patients multiply eGFR by 1.2.MDRD equation has not been validated for pediatric patients and is only valid for patients with age >= 18 years. At present, NKDEP does NOT recommend using the MDRD equation for drug dosing purposes and pharmacists should continue to use their current dosing methods. In addition, numerical eGFR values greater than 60 ml/min/1.73 square meters should be treated as > 60, and not an exact number due to greater inaccuracies at these higher values. Per NKDEP, they classify normal renal function as any GFR >60ml/min/1.73 square meters; chronic kidney disease when GFR <60, and renal failure when GFR <15. ??This calculation may not be valid for patients with atypical muscle mass (very lean or obese), acute renal failure, and in patients with diabetic kidney disease. References: http://nkdep.nih.gov/resources/NKDEP_Suggestn4Labs_0606_508.pdf http://www.kidney.org/professionals/kls/pdf/faq_gfr.pdf Blood specimen (specimen) 04/12/2011 7:15 AM EST 04/12/2011 7:34 AM EST Robyn Fowler MD CHEMISTRY ORDERABLES Performing Organization Address [facility] de Phone Number CERMARTI JUNIORIUM * BUN (04/12/2011 7:15 AM EST) Blood Urea Nitrogen 14 10 - 20 mg/dL CERNER MILLENNIUM Blood specimen (specimen) 04/12/2011 7:15 AM EST 04/12/2011 7:34 AM EST Robyn Fowler MD CHEMISTRY ORDERABLES Performing Organization Address [facility] de Phone Number [facility]ER[facility]ARTI [facility] * Electrolytes panel (04/12/2011 7:15 AM EST) Sodium 137 135 - 145 mmol/L CERNER MILLENNIUM Potassium 3.9 3.5 - 5.0 mmol/L CERNER MILLENNIUM Comment: Please note: ??Patients with WBC >100,000 may have falsely elevated Potassium levels. ??For accurate Potassium quantification in these patients send serum separator tube (gold top) for subsequent determinations. ??Contact the Clinical Chemistry Laboratory if there are any questions. Chloride 100 98 - 107 mmol/L CERNER MILLENNIUM Carbon Dioxide 22 22 - 31 mmol/L CERNER MILLENNIUM Anion Gap 15 5 - 15 mmol/L CERNER MILLENNIUM Blood specimen (specimen) 04/12/2011 7:15 AM EST 04/12/2011 7:34 AM EST Robyn Fowler MD CHEMISTRY ORDERABLES Performing Organization Address [facility] Co de Phone Number DONNIE DIETZ * (ABNORMAL) CBC (with Diff) (04/12/2011 7:15 AM EST) White Blood Cell 15.2(H) 4.0 - 10.0 x10(3)/mc L CERNER MILLENNIUM Red Blood Cell 5.11 4.63 - 6.08 x10(6)/mc L CERNER MILLENNIUM Hemoglobin 16.2 13.7 - 17.5 gm/dL CERNER MILLENNIUM Hematocrit 45.3 40.0 - 51.0 % CERNER MILLENNIUM Mean Cell Volume 88.6 79.0 - 92.0 fL CERNER MILLENNIUM Mean Cell Hemoglobin 31.7 25.6 - 32.2 pg CERNER MILLENNIUM Mean Cell Hemoglobin Concentration 35.8 32.0 - 36.5 gm/dL CERNER MILLENNIUM Platelet 251 145 - 370 x10(3)/mc L CERNER MILLENNIUM RDW Standard Deviation 39.7 35.0 - 46.0 fL CERNER MILLENNIUM RDW coefficient of variation 13.0 10.9 - 14.4 % CERNER MILLENNIUM Mean Platelet Volume 12.3(H) 9.0 - 12.0 fL CERNER MILLENNIUM Blood specimen (specimen) 04/12/2011 7:15 AM EST 04/12/2011 7:34 AM EST Robyn Fowler MD HEMATOLOGY ORDERABLE S Performing Organization Address [facility] Co de Phone Number DONNIE DIETZ documented in this encounter Visit Diagnoses Not on filedocumented in this encounter Administered Medications Inactive Administered Medications - up to 3 most recent administrations Medication Order MAR Action Action Date Dose Rate Site ceFAZolin (ANCEF) injection ONCE PRN, Starting on Fri04/12/11 at 1137, Until Fri04/12/11 at 2135, Intra-Operative (Intra-Procedure), Routine Given 04/12/2011 11:37 AM EST 2 g Left Arm gelatin adsorbable (GELFOAM) sponge ONCE PRN, Starting on Fri04/12/11 at 1337, Until Fri04/12/11 at 1626, Intra-Operative (Intra-Procedure) Given 04/12/2011 1:37 PM EST 4 packets 19- Surgical Site iodixanol (VISIPAQUE) 320 mg/mL injection ONCE PRN, Starting on Fri04/12/11 at 1338, Until Fri04/12/11 at 1626, Per Protocol, Intra-Operative (Intra-Procedure), Routine Given 04/12/2011 1:38 PM EST 63 mLs 19- Surgical Site protamine injection ONCE PRN, Starting on Fri04/12/11 at 1338, Until Fri04/12/11 at 1626, Intra-Operative (Intra-Procedure), Routine Given 04/12/2011 1:38 PM EST 25 mg thrombin (bovine) (THROMBINAR) kit ONCE PRN, Starting on Fri04/12/11 at 1338, Until Fri04/12/11 at 1626, Intra-Operative (Intra-Procedure) Given 04/12/2011 1:38 PM EST 20,000 Units 19- Surgical Site documented in this encounter Active and Recently Administered Medications Times are shown in EST. Scheduled Medication Order 04/14/2011 04/15/2011 04/16/2011 aspirin chewable tablet 81 mg 81 mg, Oral, DAILY, First dose on Fri04/14/11 at 0900, Until Discontinued, Routine 0900 (Given - Provider: Vishnu Mckoy RN) 0900 (Given - Provider: Vishnu Mckoy RN) 0834 (Given - Provider: Leandra Monreal, MARILYN) ciprofloxacin (CIPRO) tablet 500 mg 500 mg, Oral, 2 TIMES DAILY, First dose on Fri04/16/11 at 1130, Until Discontinued, Routine 1144 (Given - Provider: Leandra Monreal RN) DILTiazem (DILACOR XR) XR capsule 240 mg (CANCELED) 240 mg, Oral, DAILY, First dose on Fri04/14/11 at 1100, Until Discontinued, Routine 1100 (Given - Provider: Vishnu Mckoy RN) 0900 (Given - Provider: Vishnu Mckoy RN) 0835 (Given - Provider: Leandra Monreal RN) enalapril (VASOTEC) tablet 10 mg (CANCELED) 10 mg, Oral, DAILY, First dose (after last modification) on 12/13/11 at 0900, Until Discontinued, Routine 09 (Given - Provider: Leandra Monreal, MARILYN) enalapril (VASOTEC) tablet 5 mg (CANCELED) 5 mg, Oral, DAILY, First dose on Fri04/15/11 at 0900, Until Discontinued, Routine 09 (Given - Provider: Vishnu Mckoy RN) esomeprazole (NEXIUM) capsule 40 mg (CANCELED)(Linked Group 1) 40 mg, Oral, DAILY, First dose on 04/13/11 at 0900, Until Discontinued, If unable to take PO, may give IV, Routine 09 (See Alternative - Provider: Vishnu Mckoy RN) 09 (Given - Provider: Vishnu Mckoy RN) 0835 (Given - Provider: Leandra Monreal RN) esomeprazole (NEXIUM) injection 40 mg (CANCELED)(Linked Group 1) 40 mg, Intravenous, DAILY, First dose on 04/13/11 at 0900, Until Discontinued, Routine 899 (Given - Provider: Vishnu Mckoy RN) 0900 (See Alternative - Provider: Vishnu Mckoy RN) 0835 (See Alternative - Provider: Leandra Monreal RN) insulin aspart (NOVOLOG) PEN injection 1-4 Units (CANCELED) 1-4 Units, Subcutaneous, 4 TIMES DAILY, First dose on Fri04/12/11 at 1015, Until Discontinued, CORRECTION BOLUS Sensitive to insulin lean patient or total daily dose of all insulin needed to achieve glycemic control less than 30 units BG 140 - 160 Give 1 unit BG 161 - 200 Give 2 units BG 201 - 240 Give 3 units BG greater than 240, give 4 units every 2 hours until BG less than 240 (no more than three times) & call for new basal insulin orders , Routine 0900 (Given - Provider: Vishnu Mckoy RN)1300 (Given - Provider: Lizet Engle RN)1700 (Given - Provider: Vishnu Mckoy RN)2046 (Given - Provider: Esme Gamboa RN) 0900 (Given - Provider: Vishnu Mckoy RN)1300 (Given - Provider: Cinthia Huerta RN)1700 (Given - Provider: Christopher Barnes RN)2101 (Given - Provider: Tawana Valenzuela RN) 0805 (Given - Provider: Leandra Monreal, MARILYN)1300 (Given - Provider: Leandra Monreal RN) ketorolac (TORADOL) injection 15 mg (COMPLETED) 15 mg, Intravenous, ONCE, 1 dose, On Fri04/16/11 at 0145, Routine 0142 (Given - Provider: Tawana Valenzuela RN) metroNIDAZOLE (FLAGYL) tablet 500 mg 500 mg, Oral, 3 TIMES DAILY, First dose on Fri04/16/11 at 1130, Until Discontinued, Routine 1144 (Given - Provider: Leandra Monreal RN) piperacillin-tazobact am (ZOSYN) 3.375 g in dextrose 5% 50 mL (CANCELED) 3.375 g, Intravenous, EVERY 6 HOURS SCHEDULED, First dose on Fri04/13/11 at 0000, Until Discontinued, Administer over 30 Minutes 0512 (Given - Provider: Ginny Britton RN)1200 (Given - Provider: Vishnu Mckoy RN)1800 (Given - Provider: Vishnu Mckoy RN) 0000 (Given - Provider: Ced Mathews)0600 (Given - Provider: Esme Gamboa RN)1200 (Given - Provider: Vishnu Mckoy RN)1800 (Given - Provider: Chrisotpher Barnes RN) 0100 (Given - Provider: Tawana Valenzuela RN)0624 (Given - Provider: Tawana Valenzuela RN) potassium chloride SA (K-DUR;KLOR-CON) tablet 60 mEq (CANCELED) 60 mEq, Oral, 2 TIMES DAILY, First dose on Fri04/16/11 at 1045, Until Discontinued, 20 mEq tablet may be dissolved in water for administration, Routine 1059 (Given - Provider: Leandra Monreal RN) vancomycin 1.5 g in sodium chloride 0.9% 250 mL (CANCELED) 1,500 mg (1.5 g), Intravenous, EVERY 12 HOURS, First dose (after last reorder) on Fri04/12/11 at 2300, Until Discontinued, This medication may have an associated drug lab level. Please check for lab orders, Routine 0000 (Given - Provider: Ginny Britton RN)1100 (Given - Provider: Vishnu Mckoy, MARILYN)2200 (Given - Provider: Esme Gamboa RN) 1100 (Given - Provider: Vishnu Mckoy RN)2234 (Given - Provider: Tawana Valenzuela RN) PRN Medication Order 04/14/2011 04/15/2011 04/16/2011 acetaminophen (TYLENOL) tablet 650 mg 650 mg, Oral, EVERY 4 HOURS PRN, Starting on 04/14/11 at 0106, Until Fri04/16/11 at 1506, Pain, Maximum dose of acetaminophen is 4000 mg from all sources in 24 hours., Routine 0200 (Given - Provider: Ginny Britton RN)2304 (Given - Provider: Esme Gamboa RN) 0606 (Given - Provider: Esme Gamboa RN)1623 (Given - Provider: Christopher Barnes RN) fentaNYL 50mcg/mL injection (CANCELED) 25 mcg, Intravenous, EVERY 1 HOUR PRN, Starting on Fri04/12/11 at 1523, Until Fri04/14/11 at 0107, Pain, PRN pain scale greater than goal or pre-procedure, Routine 0028 (Given - Provider: Ginny Britton RN) fentaNYL 50mcg/mL injection (CANCELED) 25-50 mcg, Intravenous, EVERY 1 HOUR PRN, Starting on Fri04/14/11 at 0106, Until 04/14/11 at 0929, Pain, PRN pain scale greater than goal or pre-procedure, Routine 0200 (Given - Provider: Ginny Britton RN)0400 (Given - Provider: Ginny Britton RN)0615 (Given - Provider: Ginny Britton RN)0907 (Given - Provider: Vishnu Mckoy, MARILYN) HYDROmorphone (DILAUDID) tablet 2-4 mg 2-4 mg, Oral, EVERY 4 HOURS PRN, Starting on 04/14/11 at 0929, Until Fri04/16/11 at 1506, Pain, Routine 1049 (Given - Provider: Vishnu Mckoy RN)1443 (Given - Provider: Vishnu Mckoy RN)2303 (Given - Provider: Esme Gamboa, MARILYN) 0410 (Given - Provider: Ced Mathews) 0000 (Given - Provider: Tawana Valenzuela RN)0834 (Given - Provider: Leandra Monreal RN) HYDROmorphone (PF) (DILAUDID) 2 mg/mL injection 0.2 mg (CANCELED) 0.2 mg, Intravenous, EVERY 15 MIN PRN, Starting on Fri04/12/11 at 0800, Until Fri04/14/11 at 0929, Pain, IV bolus to achieve ordered pain scale goal, Routine 0013 (Given - Provider: Ginny Britton RN)0030 (Given - Provider: Ginny Britton RN)0155 (Given - Provider: Ginny Britton RN)0213 (Given - Provider: Ginny Britton RN)0403 (Given - Provider: Ginny Britton RN)0416 (Given - Provider: Ginny Britton RN)0430 (Given - Provider: Ginny Britton RN)0615 (Given - Provider: Ginny Britton RN)0630 (Given - Provider: Ginny Britton RN)0808 (Given - Provider: Vishnu Mckoy RN)0824 (Given - Provider: Vishnu Mckoy RN) HYDROmorphone (PF) (DILAUDID) 2 mg/mL injection 0.2 mg (CANCELED) 0.2 mg, Intravenous, EVERY 4 HOURS PRN, Starting on Fri04/14/11 at 0928, Until Fri04/15/11 at 0914, Pain, IV bolus to achieve ordered pain scale goal, Routine 2303 (Given - Provider: Esme Gamboa, MARILYN) ketorolac (TORADOL) injection 15 mg () 15 mg, Intravenous, EVERY 6 HOURS PRN, 4 doses, Starting on Fri04/14/11 at 0934, Until Fri04/15/11 at 2359, Pain, Routine 1134 (Given - Provider: Vishnu Mckoy RN)1741 (Given - Provider: Vishnu Mckoy RN) 0824 (Given - Provider: Vishnu Mckoy RN) labetalol (NORMODYNE;TRANDATE) IV syringe 10-20 mg (CANCELED) 10-20 mg, Intravenous, EVERY 2 HOURS PRN, Starting on 04/13/11 at 1748, Until Fri04/15/11 at 0914, High Blood Pressure, for SBP greater than 160, Routine 0910 (Given - Provider: Vishnu Mckoy RN)2304 (Given - Provider: Esme Gamboa RN) 0606 (Given - Provider: Esme Gamboa RN) potassium chloride SA (K-DUR;KLOR-CON) tablet 40 mEq (CANCELED)(Linked Group 2) 40 mEq, Oral, EVERY 4 HOURS PRN, Starting on 04/13/11 at 1548, Until Fri04/15/11 at 0914, hypokalemia, Administer for serum potassium (mMol/L) of 3.6 - 3.8 , Routine 0400 (Given - Provider: Ginny Britton RN) 0553 (Given - Provider: Esme Gamboa RN) Linked Groups Order Group 1: esomeprazole (NEXIUM) capsule 40 mg (CANCELED)Jump to med 40 mg, Oral, DAILY, First dose on 04/13/11 at 0900, Until Discontinued, If unable to take PO, may give IV, Routine Or esomeprazole (NEXIUM) injection 40 mg (CANCELED)Jump to med 40 mg, Intravenous, DAILY, First dose on 04/13/11 at 0900, Until Discontinued, Routine Group 2: potassium chloride SA (K-DUR;KLOR-CON) tablet 20 mEq (CANCELED) 20 mEq, Oral, EVERY 4 HOURS PRN, Starting on 04/13/11 at 1548, Until Fri04/15/11 at 0914, hypokalemia, Administer for serum potassium (mMol/L) of 3.9 - 4 , Routine Or potassium chloride SA (K-DUR;KLOR-CON) tablet 40 mEq (CANCELED)Jump to med 40 mEq, Oral, EVERY 4 HOURS PRN, Starting on 04/13/11 at 1548, Until Fri04/15/11 at 0914, hypokalemia, Administer for serum potassium (mMol/L) of 3.6 - 3.8 , Routine documented in this encounter Care Teams Battery Repairer Relationship Specialty Start Date End Date Arely Vickers MD PCP - General 04/12/11 09/15/16 documented as of this encounter
--- OUTSIDE RECORDS SUMMARY | 2023-12-21 07:54 | XMS_ITS | Encounter Summary ---
Author Organization [facility] Address [facility] [place] [address] Care Team Providers Care Office Machine Servicer Apprentice Name Role Phone Rolando Zacarias MD Primary Care Provider [phone] Encounter Details Date Type Department Care Team (Late st Contact Info) Description 04/12/2011 11:00 AM EST Anesthesia [place] [address] Placido Doe MD [facility] [address] [place] [address] Anesthesia Record Procedure Summary Procedure Name Responsible Anesthesiologist Anesthesia Start Time Anesthesia Stop Time @EVG-PLACEMENT, CUFF OR EXT. AORTIC OR ILIAC ANEURYSM REPAIR, GORE (WRVU 12.8) (Abdomen) Placido Doe MD 04/12/11 1100 04/12/11 1457 Events Date Time Event Comment 04/12/2011 1100 Start 1457 Stop Meds * Agents No agents on file. * Blood No blood administrations on file. Lines, Drains, and Airways Type Details Placement Removal Incision 04/12/11; groin; 02/05/17; 1056 04/12/11 0000 by Shu Liu RN 02/05/17 1056 by Angie Escobar RN Incision 04/12/11; groin; 02/05/17; 1056 04/12/11 0000 by Catherine Maldonado RN 02/05/17 1056 by Angie Escobar, MARILYN (RETIRED) Peripheral IV Line - Single Lumen 04/12/11; 0726; 04/13/11; 0800 04/12/11 0726 by Cristian Byers, HAT RENOVATOR 04/13/11 0800 by Vishnu Mckoy RN (RETIRED) Peripheral IV Line - Single Lumen 04/12/11; 0726; 04/16/11; 0142 04/12/11 0726 by Cristian Byers, HAT RENOVATOR 04/16/11 0142 by Tawana Valenzuela RN Urethral Catheter 04/12/11; 0727; indwelling double lumen catheter; 16; in place (inserted BB SHOT PACKER); 04/15/11; 0643 04/12/11 0727 by Cristian Byers, RADHA 04/15/11 0643 by Esme Gamboa RN (RETIRED) Arterial LIne 04/12/11; 0751; 04/13/11; 1900 04/12/11 0751 by Cristian Byers, RADHA 04/13/11 1900 by Vishnu Mckoy RN (RETIRED) Peripheral IV Line - Single Lumen 04/12/11; 1130; 04/16/11; 0143 04/12/11 1130 by Shu Liu RN 04/16/11 0143 by Tawana Valenzuela RN (RETIRED) Non-Surgical Airway Size: 8 mm; Removal Date: 04/13/11; Removal Time: 1435 04/12/11 1452 by Bello Guerrero COMPLIANCE SPEC 04/13/11 1435 by Esme Cole RRT documented in this encounter Social History Tobacco Use Types Packs/Day Years Used Date Smoking Tobacco: Never Assessed Sex and Gender Information Value Date Recorded Sex Assigned at Not on file Gender Identity Not on file Sexual Orientation Not on file documented as of this encounter OR Notes * Anesthesia Postprocedure Evaluation - Placido Doe MD - 04/14/2011 2:48 AM EST Patient: Cesar Thompson Procedure(s) Performed: @EVG-PLACEMENT, CUFF OR EXT. AORTIC OR ILIAC ANEURYSM REPAIR, GORE; @EVG, AAA, W\ MODULAR BIFURCATED PROS. W\ 2 DOCKING LIMBS; @EXPOSURE, OPEN FEM. ARTERY FOR ENDOVASCULAR PROSTHESIS, GROIN-FABIANA; @EVG, INFRARENAL AAA OR DISSECTION, S&I; @PLACE EXT EVG INTRARENAL AORTIC\ILIAC ARTERY ANEURYSM, S&I Patient location: PACU Post-op pain: Adequate analgesia Post-op nausea: no nausea or vomiting Last Vitals: Filed Vitals: 04/14/11 0210 BP: 155/86 Pulse: 88 Temp: 36.7 ??C (98.1 ??F) Resp: 16 Post-op cardiovascular and respiratory status: is stable Level of consciousness: awake, alert and oriented Complications: no apparent complications, tolerated the procedure well and no evidence of recall Fluid Status: normal * Anesthesia Preprocedure Evaluation - Sebastian Owens - 04/12/2011 9:28 AM EST Anesthesia Evaluation Patient summary reviewed Airway Mallampati: II TM distance: >3 FB Neck ROM: full Dental (+) lower dentures and upper dentures Pulmonary (-) COPD, asthma, shortness of breath and recent URI Cardiovascular (+) hypertension, (-) past MN, CAD and CABG/stent ROS comment: Symptomatic 5cm infrarenal AAA. Hyperlipidemia Neuro/Psych (-) TIA, CVA and headaches GI/Hepatic/Renal (-) GERD, liver disease and renal disease Endo/Other (+) Type II DM poorly controlled, (-) hypothyroidism and hyperthyroidism Abdominal Anesthesia Plan ASA 3 - Emergent General with intravenous induction Plan GETA, A-line in situ, large bore PIV x2. For EVG repair of symptomatic 7cm infrarenal AAA. Anesthetic plan and risks discussed with patient. Use of blood products discussed with and consented by patient. Plan discussed with attending. documented in this encounter Miscellaneous Notes * Addendum Note - Rose Marie Mojica - 04/15/2011 10:20 AM EST Addendum created 04/15/11 1020 by Rose Marie Mojica Modules edited:Anesthesia Events, Anesthesia Responsible Staff documented in this encounter Plan of Treatment Upcoming Encounters Date Type Department Care Team (Latest Contact Info) Description 01/02/2024 1:30 PM EDT Laboratory Appointment Lab [address] [place] [address] 01/02/2024 3:00 PM EDT Office Visit [place] [address] Adam Costa MD [facility] [place] [address] documented as of this encounter Visit Diagnoses Not on filedocumented in this encounter Care Teams Office Machine Servicer Apprentice Relationship Specialty Start Date End Date Rolando Zacarias MD PCP - General 04/12/11 09/15/16 documented as of this encounter
--- OUTSIDE RECORDS SUMMARY | 2023-12-21 07:54 | XMS_ITS | Encounter Summary ---
Author Organization [facility] Address [facility] [place] [address] Care Team Providers Care T Rail Turner Name Role Phone Arely Vickres MD Primary Care Provider [phone] Reason for Visit * Reason Comments Abdominal Pain Encounter Details Date Type Department Care Team (Latest Contact Info) Description 04/12/2011 7:04 AM EST - 04/16/2011 1:05 PM [facility] Hospital Encounter [address] [place] [address] Robyn Fowler MD [facility] [place] [address] Randy Padilla [facility] [place] [address] Steven Borges MD [facility] [place] [place] [address] AAA (abdominal aortic aneurysm) Discharge Disposition: Home [...] Sign Reading Time Taken Comments Blood Pressure 155/83 04/15/2011 8:00 AM EST Pulse 58 04/15/2011 8:00 AM EST Temperature 36.7 ??C (98.1 ??F) 04/15/2011 8:00 AM ES T Respiratory Rate 12 04/15/2011 8:00 AM EST Oxygen Saturation 95% 04/15/2011 8:00 AM EST Inhaled Oxygen Concentration - - [...] For any problems or questions please call [phone] Angela Mujica RN Vascular Nurse Clinician Loretta [...] weaned off pressors with downtrending lactate. Extubated /, now on room air. HD stable. Neuro: PO dilaudid, completing 4 doses of toradol to help w/LBP CV: hypotension resolved, now becoming progressively hypertensive. Home diltiazem/vasotec restarted. Continue ASA. Will increase Vasotec to 10 mg daily. Pulm: NO issues. IS. GI: Diabetic diet. : UOP good. Cr stable, urinating w/o issue. FEK: Hep locked yesterday. Will replete K again today. ID: [facility] trending down - patient on Vanc/zosyn for superimposed diverticulitis. Will start PO cipro/flagyl and have him continue for 7 more days. Dispo: Home today. * Christopher Barnes RN - 04/15/2011 4:05 PM EST Patient received from [facility] to [facility] in stable condition. A+OX3, BP 170/78, other [...] UOP great, auto diuresing, Cr acceptable. D/c MATT brooke FEK: Hep locked yesterday. Will replete K this morning. ID: WCC down to 16 from 18 - patient on Vanc/zosyn for superimposed diverticulitis Dispo: Ambulate today. Floor status. Likely home tomorrow if patient remains stable and WCC continues trending downward. * Sydnie Adam RN - 04/15/2011 11:43 AM EST Office of Care Management (OCM) / Clinical Bar Finish Operator (CRC)/ Initial Assessment Discussed patient with Provider Team and in multidisciplinary discharge-planning rounds. Reviewed record and interviewed patient. Introduced/reviewed CRC role and services accepted. REASON for HOSPITALIZATION: AAA (abdominal aortic aneurysm) ; s/p EVAR; transferred to floor today from ICU Awake,alert,resting in bed; c/o 8/10 back pain but also has chronic back pain; Toradol q6h prn withgood effect per nursing;IV Vancomycin q12h;IV Zosyn q6; WBC 16 today-afebrile; voiding qs;? Discharge tomorrow if med. Stable. 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 PRIMARY CARE PHYSICIAN: ARELY VICKERS MD [facility] [address] / [facility] [address] POTENTIAL DISCHARGE NEEDS: None anticipated; states can monitor his BP at home PATIENT/FAMILY EDUCATION NEEDS:per discharge summary ANTICIPATED BARRIERS TO DISCHARGE:none TRANSPORTATION @ D/C:radha Willard PLAN: Vascular CRC will continue to monitor progress, follow for continuity of care and assist withdischarge planning while hospitalized * Abhi Dukes, PharmD - 04/14/2011 2:08 PM EST Clinical Pharmacist Note-Vanc Cali Thompson [id number] 1935 Cali Thompson is a 75 y.o. [...] have. Alternately, during off-hours you may call [phone] to contact a pharmacist. ABHI DUKES, JONELLE * Chris Johnson Thanh - 04/14/2011 9:23 AM EST General [...] : UOP adequate, lytes/Cr acceptable, HLIV ID: [facility] up a bit today - patient Vanc/zosyn for superimposed diverticulitis Dispo: Up out of bed today. Will transfer to ISCU today * Estela Flores RCP - 04/13/2011 5:06 PM EST Patient found on noted settings. SBT done and patient passed and was extubated to 4 lpm NC with no complications. YA * Poli Chowdhury MD - 04/13/2011 3:01 PM EST Cali Thompson [id number] 04/13/2011 04/12/2011 7:04 AM Critical Care Medicine [...] Q12H ??? DISCONTD: ceFAZolin 2 g Intravenous Microphone Boom Operator to OR ??? DISCONTD: vancomycin 1 g Intravenous Q12H No Known Allergies EXAM: Temp: [35.7 ??C (96.3 ??F)-37.2 ??C (99 ??F)] Heart Rate: [47-80] Resp: [10-19] BP: (104)/(61) SpO2: [91 %-98 %] I/O last 3 completed shifts: In: 10879 [I.V.:13727] Out: 2300 [Urine:1700; Blood:600] I/O this shift: [...] 97 % SpO2: [91 %-98 %] SIMV/PS [id number] PEEP 5 FiO2 40% Last ABG 7.36/35/70/19 Intake/Output Summary (Last 24 hours) at 04/13/11 1155 Last data filed at 04/13/11 1000 Gross per 24 hour Intake 49891 ml Output 2775 ml Net 9784 ml [...] now taped @ 23 teeth * Jia Victoria, PharmD - 04/12/2011 10:50 PM EST Clinical Pharmacist Note-Vanc Cali Thompson [id number] 1935 Cali Thompson is a 75 y.o. [...] have. Alternately, during off-hours you may call [phone] to contact a pharmacist. JIA VICTORIA PHARMD Pager [phone] * Chris Johnson - 04/12/2011 8:28 PM [...] hours) at 04/12/112028 Last data filed at 04/12/111945 Gross per 24 hour Intake 87516 ml Output 1755 ml Net 8949 ml [...] Gill MD - 04/12/2011 8:08 AM EST [facility] staff procedure note: Under sterile cond RIGHT radial a-line placed for hemodynamic monitoring. Hand intact, excellent waveform. documented in this encounter H&P Notes * Poli Chowdhury MD - 04/12/2011 8:22 AM EST Cali Thompson [id number] 04/12/2011 04/12/2011 7:04 AM Critical Care Medicine [...] Once ??? DISCONTD: ceFAZolin 2 g Intravenous Microphone Boom Operator to OR No Known Allergies EXAM: Temp: [...] prior known history of AAA, presents to [facility] with c/o abdominal pain for 12hours. Described [...] urgently once medically optimized, [facility]: I saw and evaluated Mr. Thompson [...] 04/17/2011 11:15 AM ESTAssociated Order(s): SCAN DOC: FOURDRINIER WIRE WEAVER documented in this encounter ED Notes * [...] with pt at this time. * Cristian Byres RN - 04/12/2011 10:33 AM EST Pt [...] with current pain regimen. Encouraged to notify staff radiologist when inneed of pain medication. Continue to [...] Joan Vail - 04/12/2011 4:41 PM EST [facility] Operative Note Patient Name: Cali Thompson : [id number] MR#: [id number] Case Date: 04/12/2011 Surgeon: Surgeon(s) and Role: * STEVEN BORGES MD - Primary * JOAN VAIL MD - Fellow Preoperative diagnosis: symptomatic infrarenal aortic aneurysm Postoperative diagnosis: same Procedure(s): Bilateral femoral arterial exposures Endovascular repair of aortic aneurysm, using [employer] Flex [id number]-[id number] via right; ipsilateralextension with TFLE 16-56; contralateral [...] point on the right we advanced a Lime[employer]Tonic device type [id number], and this was advanced up to the [...] the delivery system was removed, and a 12-[place] Clementon dry seal was advanced. On the right [...] removed the delivery system and advanced a 20-[place] Clementon dry seal up the right side. We [...] Operative Note Patient Name: Cali Thompson : [id number] MR#: [id number] Case Date: 04/12/2011 Surgeon: Surgeon(s) and Role: * STEVEN BORGES MD - Primary * JOAN VAIL MD - Fellow Preoperative diagnosis: symptomatic infrarenal aortic aneurysm Postoperative diagnosis: same Procedure(s): Bilateral femoral arterial exposures Endovascular repair of aortic aneurysm, using Lime&Tonic Flex [id number] via right; ipsilateralextension with TFLE 16-56; contralateral [...] exposures Endovascular repair of aortic aneurysm, using Lime[employer]Tonic Flex [id number] via right; ipsilateralextension with TFLE 16-56; contralateral extension with TFLE 16-73 History of Presentation: 75 year old male without prior known history of AAA, presented to [facility] with complaints of abdominal pain for 12 [...] at case end. ABG at case end 7. / / 16, unexplained metabolic acidosis. Kept intubated [...] For any problems or questions please call [phone] Angela Mujica RN Vascular Nurse Clinician Loretta Matthews RN Vascular Nurse Clinician Future Appointments and Orders Future Orders Please Complete By Expires CT abdomen & pelvis with contrast [[id number] Custom] 05/13/11 04/12/12 Process Instructions: Scheduling Instructions: [...] to the ED as a transfer from [facility] vascular with a dx of AAA. Pt [...] bedside upon pt arrival. Pt placed on environmental monitoring technician, labs obtained and sent. Pt c/o having [...] 1:30 PM EDT Laboratory Appointment Lab [address] [place] [address] 01/02/2024 3:00 PM EDT Office Visit Neph[place] [address] Adam Costa MD [facility] [place] [address] documented as of this encounter Procedures Procedure [...] IMPLANTABLE DEVICES SCAN 04/17/2011 11:15 AM EST FOURDRINIER WIRE WEAVER SCAN 04/17/2011 11:15 AM EST POCT GLUCOSE [...] SCAN EXT O RDR/RSLT * SCAN DOC: FOURDRINIER WIRE WEAVER (04/17/2011 11:15 AM EST) Anatomical Region Laterality Modality Other Narrative 04/17/2011 3:20 PM EST Procedure Note Provider, Scanning - 04/17/2011 11:15 AM EST Scanning Provider MEDIA MGR SCAN EXT O RDR/RSLT * (ABNORMAL) POCT GLUCOSE LAB USE ONLY (04/16/2011 10:58 AM EST) Glucose, POC 257(H) 60 - 199 mg/dL [facility] 2 MinutesIUM Comment: Supplemental ranges: <110 mg/dL before meals <200 mg/dL all other times of the day Blood specimen (specimen) 04/16/2011 10:58 AM EST 04/16/2011 10:58 AM EST Randy Padilla MD POINT OF CARE TEST O BHASKAR Performing Organization Address [facility] Co de Phone Number [place] [facility] * POCT GLUCOSE LAB USE ONLY (04/16/2011 7:21 AM EST) Glucose, POC 181 60 - 199 mg/dL [place] [facility] Comment: Supplemental ranges: <110 mg/dL before meals <200 mg/dL all other times of the day Blood specimen (specimen) 04/16/2011 7:21 AM EST 04/16/2011 7:21 AM EST Randy Padilla MD POINT OF CARE TEST O RDERABLES DONNIE DIETZ * (ABNORMAL) DIFFERENTIAL, AUTOMATED (04/16/2011 6:08 AM [...] MD HEMATOLOGY ORDERABLE S DONNIE DIETZ * (ABNORMAL) Basic Metabolic Panel (non-fasting) (04/16/2011 [...] Padilla MD CHEMISTRY ORDERABLES Performing Organization Address [facility] Co de Phone Number CERMARTI HIGGINSENNIUM * (ABNORMAL) CBC (with Diff) (04/16/2011 6:08 [...] Randy Padilla MD HEMATOLOGY ORDERABLE S DONNIE JUNIORIUM * (ABNORMAL) POCT GLUCOSE LAB USE ONLY (04/15/2011 8:59 PM EST) Glucose, POC 217(H) 60 - 199 mg/dL CERNER MILLENNIUM Comment: Supplemental ranges: <110 mg/dL before meals <200 mg/dL all other times of the day Blood specimen (specimen) 04/15/2011 8:59 PM EST 04/15/2011 8:59 PM EST Randy Padilla MD POINT OF CARE TEST O BHASKAR Performing Organization Address [facility] de Phone Number [facility] * POCT GLUCOSE LAB USE ONLY (04/15/2011 4:07 PM EST) Glucose, POC 162 60 - 199 mg/dL [facility] Comment: Supplemental ranges: <110 mg/dL before meals <200 mg/dL all other times of the day Blood specimen (specimen) 04/15/2011 4:07 PM EST 04/15/2011 4:07 PM EST Randy Padilla MD POINT OF CARE TEST O BHASKAR Performing Organization Address [facility] Co de Phone Number [facility] * POCT GLUCOSE LAB USE ONLY (04/15/2011 12:46 PM EST) Glucose, POC 157 60 - 199 mg/dL [facility] Comment: Supplemental ranges: <110 mg/dL before meals <200 mg/dL all other times of the day Blood specimen (specimen) 04/15/2011 12:46 PM EST 04/15/2011 12:46 PM EST Randy Padilla MD POINT OF CARE TEST O BHASKAR Performing Organization Address [facility] Co de Phone Number [facility] * POCT GLUCOSE LAB USE ONLY (04/15/2011 8:34 AM EST) Glucose, POC 173 60 - 199 mg/dL [facility] Comment: Supplemental ranges: <110 mg/dL before meals <200 mg/dL all other times of the day Blood specimen (specimen) 04/15/2011 8:34 AM EST 04/15/2011 8:34 AM EST Randy Padilla MD POINT OF CARE TEST O RDERABLES CERMARTI HIGGINSENNIUM * (ABNORMAL) DIFFERENTIAL, AUTOMATED (04/15/2011 6:05 AM [...] Randy Padilla MD HEMATOLOGY ORDERABLE S DONNIE JUNIORIUM * (ABNORMAL) CBC (with Diff) (04/15/2011 6:05 [...] EST Randy Padilla MD HEMATOLOGY ORDERABLE S [facility] MILLENNIUM * (ABNORMAL) Basic Metabolic Panel (non-fasting) (04/15/2011 6:05 AM EST) Pathologist [facility] Glucose 160 60 - 199 mg/dL CERNER [...] AM EST Randy Padilla MD CHEMISTRY ORDERABLES CERMARTI HIGGINSENNIUM * (ABNORMAL) Potassium (04/15/2011 4:30 AM EST) Potassium 3.2(L) 3.5 - 5.0 mmol/L CERNER MILLENNIUM Comment: [...] Padilla MD CHEMISTRY ORDERABLES Performing Organization Address [facility] Phone Number [place] Nivela * POCT GLUCOSE LAB USE ONLY (04/14/2011 8:46 PM EST) Glucose, POC 156 60 - 199 mg/dL [place] 2 [facility]FORM[facility]LY [facility] Comment: Supplemental ranges: <110 mg/dL before meals <200 mg/dL all other times of the day Blood specimen (specimen) 04/14/2011 8:46 PM EST 04/14/2011 8:46 PM EST Randy Padilla MD POINT OF CARE TEST O RDERABLES Performing Organization Address [facility] Phone Number [place] 2 MinutesFORMERLY [facility] * POCT GLUCOSE LAB USE ONLY (04/14/2011 5:36 PM EST) Glucose, POC 159 60 - 199 mg/dL [place] 2 Minutes[facility] Comment: Supplemental ranges: <110 mg/dL before meals <200 mg/dL all other times of the day Blood specimen (specimen) 04/14/2011 5:36 PM EST 04/14/2011 5:36 PM EST Randy Padilla MD POINT OF CARE TEST O RDERABLES Performing Organization Address [facility] Phone Number [place] Nivela * (ABNORMAL) POCT GLUCOSE LAB USE ONLY (04/14/2011 1:31 PM EST) Glucose, POC 201(H) 60 - 199 mg/dL [place] [facility] Comment: Supplemental ranges: <110 mg/dL before meals <200 mg/dL all other times of the day Blood specimen (specimen) 04/14/2011 1:31 PM EST 04/14/2011 1:31 PM EST Randy Padilla MD POINT OF CARE TEST O RDERABLES Performing Organization Address [facility] Number [facility] * VANCOMYCIN, TROUGH (04/14/2011 10:30 AM EST) Vancomycin, Trough 14.2 mg/L Anna [facility] Comment: Therapeutic range for complicated infections such [...] Padilla MD CHEMISTRY ORDERABLES Performing Organization Address [facility] Phone Number [facility] * POCT GLUCOSE LAB USE ONLY (04/14/2011 8:17 AM EST) Glucose, POC 171 60 - 199 mg/dL [facility] Comment: Supplemental ranges: <110 mg/dL before meals <200 mg/dL all other times of the day Blood specimen (specimen) 04/14/2011 8:17 AM EST 04/14/2011 8:17 AM EST Randy Padilla MD POINT OF CARE TEST O RDERABLES Performing Organization Address [facility] Phone Number [facility] * (ABNORMAL) DIFFERENTIAL, AUTOMATED (04/14/2011 8:00 AM EST) Neutrophil % 78.6(H) 34.0 - 71.0 % [facility] Neutrophil Absolute 14.46(H) 1.50 - 6.30 x10(3)/mc [...] MD HEMATOLOGY ORDERABLE S Performing Organization Address [facility] Co de Phone Number CERMARTI MILLENNIUM * LACTIC ACID, PLASMA (04/14/2011 8:00 AM EST) Lactic Acid 1.3 0.5 - 2.2 mmol/L CERNER MILLENNIUM Blood specimen (specimen) 04/14/2011 8:00 AM EST 04/14/2011 8:31 PM EST Randy Padilla MD CHEMISTRY ORDERABLES Performing Organization Address [facility] Co de Phone Number CERMARTI MILLENNIUM * (ABNORMAL) CBC (WITH DIFF) (04/14/2011 8:00 [...] EST Randy Padilla MD HEMATOLOGY ORDERABLE S [facility] GISELAENNIUM * (ABNORMAL) BASIC METABOLIC PANEL (NON-FASTING) (04/14/2011 [...] CHEMISTRY ORDERABLES DONNIE DIETZ * (ABNORMAL) Potassium (04/13/2011 9:47 PM EST) Potassium 3.4(L) 3.5 - 5.0 mmol/L [facility] Comment: Please note: ??Patients with WBC >100,000 may have falsely elevated Potassium levels. ??For accurate Potassium quantification in these patients send serum separator tube (gold top) for subsequent determinations. ??Contact the Clinical Chemistry Laboratory if there are any questions. Blood specimen (specimen) 04/13/2011 9:47 PM EST 04/14/2011 7:16 PM EST Randy Padilla MD CHEMISTRY ORDERABLES Performing Organization Address [facility] Phone Number [facility] * POCT GLUCOSE LAB USE ONLY (04/13/2011 8:22 PM EST) Glucose, POC 167 60 - 199 mg/dL [facility] Comment: Supplemental ranges: <110 mg/dL before meals <200 mg/dL all other times of the day Blood specimen (specimen) 04/13/2011 8:22 PM EST 04/13/2011 8:22 PM EST Randy Padilla MD POINT OF CARE TEST O RDJACKIE Performing Organization Address [facility] Phone Number [place] [facility] * POCT GLUCOSE LAB USE ONLY (04/13/2011 5:58 PM EST) Glucose, POC 164 60 - 199 mg/dL [facility] Comment: Supplemental ranges: <110 mg/dL before meals <200 mg/dL all other times of the day Blood specimen (specimen) 04/13/2011 5:58 PM EST 04/13/2011 5:58 PM EST Randy Padilla MD POINT OF CARE TEST O RDERAJAZZY Performing Organization Address [facility] Phone Number [place] [facility] * (ABNORMAL) BLOOD GAS 2 ARTERIAL (04/13/2011 5:53 PM EST) pH, [address]ial [address] [facility] PCO2, Arterial 30(L) mmHg CERNE R MILLENNIUM PO2, Arterial 79(L) mmHg CERNER MILLENNIUM Bicarbonate, Arterial 16.8(L) mmol/L CERNER MILLENNIUM Base Excess, Arterial -8.4(L) mmol/L CERNER MILLENNIUM Hgb Blood Gas 11.5(L) gm/dL CERNER MILLENNIUM Comment: Total Hemoglobin (in gm/dL) ?Based on [facility] Hematology ranges: ?Age ?Reference Range Less than [...] CL Whole Blood 117(H) mmol/L [facility]ERNE R [facility] Gluc Whole Bld 140 mg/dL CERNE R [facility] Comment:Diabetes: >=200 mg/d L plus symptoms. Flow Art 4.0 LPM [facility] Blood specimen (specimen) 04/13/2011 5:53 PM EST 04/13/2011 5:53 PM EST Randy Padilla MD POINT OF CARE TEST O RDERAJAZZY Performing Organization Address [facility] Phone Number [facility] * Lactic acid, plasma (04/13/2011 5:30 PM EST) Lactic Acid 1.8 0.5 - 2.2 mmol/L [facility] Blood specimen (specimen) 04/13/2011 5:30 PM EST 04/14/2011 7:25 PM EST Randy Padilla MD CHEMISTRY ORDERABLES Performing Organization Address [facility] Phone Number [facility] * POCT GLUCOSE LAB USE ONLY (04/13/2011 1:08 PM EST) Glucose, POC 117 60 - 199 mg/dL [facility] Comment: Supplemental ranges: <110 mg/dL before meals <200 mg/dL all other times of the day Blood specimen (specimen) 04/13/2011 1:08 PM EST 04/13/2011 1:08 PM EST Randy Padilla MD POINT OF CARE TEST O RDERABLES Performing Organization Address [facility] Phone Number [facility] * (ABNORMAL) BLOOD GAS 2 ARTERIAL (04/13/2011 12:54 PM EST) pH, Arterial 7.40 CERNER MILLENNIUM PCO2, Arterial 28(L) mmHg CERNE R MILLENNIUM PO2, Arterial 89 mmHg CERNER MILLENNIUM Bicarbonate, Arterial 16.9(L) mmol/L CERNER MILLENNIUM Base Excess, Arterial -7.9(L) mmol/L CERNER MILLENNIUM Hgb Blood Gas 10.6(L) gm/dL CERNER MILLENNIUM Comment: Total Hemoglobin (in gm/dL) ?Based on [facility] Hematology ranges: ?Age ?Reference Range Less than [...] al) mmol/L CERNER MILLENNIUM Comment: Noted by brass and wind instrument repairer. Please note: Patients with WBC [...] CARE TEST O RDERAJAZZY Performing Organization Address [facility] de Phone Number [place] [facility] * Lactic acid, plasma (04/13/2011 12:45 PM EST) Lactic Acid 1.9 0.5 - 2.2 mmol/L [place] MILLENNIUM Blood specimen (specimen) 04/13/2011 12:45 PM EST 04/14/2011 7:19 PM EST Randy Padilla MD CHEMISTRY ORDERABLES Performing Organization Address [facility] de Phone Number [place] [facility] * POCT GLUCOSE LAB USE ONLY (04/13/2011 8:37 AM EST) Glucose, POC 128 60 - 199 mg/dL [place] MILLENNIUM Comment: Supplemental ranges: <110 mg/dL before meals <200 mg/dL all other times of the day Blood specimen (specimen) 04/13/2011 8:37 AM EST 04/13/2011 8:37 AM EST Randy Padilla MD POINT OF CARE TEST O RDERABLES Performing Organization Address [facility] Co de Phone Number [place] [facility] * (ABNORMAL) BLOOD GAS 2 ARTERIAL (04/13/2011 8:29 AM EST) pH, Arterial 7.38 CERNER MILLENNIUM PCO2, Arterial 28(L) mmHg CERNE R MILLENNIUM PO2, Arterial 78(L) mmHg CERNER MILLENNIUM Bicarbonate, Arterial 15.7(L) mmol/L CERNER MILLENNIUM Base Excess, Arterial -9.5(L) mmol/L CERNER MILLENNIUM Hgb Blood Gas 10.2(L) gm/dL CERNER MILLENNIUM Comment: Total Hemoglobin (in gm/dL) ?Based on [facility] Hematology ranges: ?Age ?Reference Range Less than [...] al) mmol/L CERNER MILLENNIUM Comment: noted by earth boring machine operator Please note: Patients with WBC >100,000 may have falsely elevated Potassium levels. Contact the Clinical Chemistry Laboratory if there are any questions. ICa Whole Blood 0.91(Criti juan manuel) mmol/L CERNER MILLENNIUM Comment: noted by earth boring machine operator Reference Ranges: ?? < 19 yrs: [...] CARE TEST O RDERABLES Performing Organization Address [facility] de Phone Number CERNER MILLENNIUM * (ABNORMAL) Lactic acid, plasma (04/13/2011 5:47 AM EST) Lactic Acid 2.3(H) 0.5 - 2.2 mmol/L CERNER MILLENNIUM Blood specimen (specimen) 04/13/2011 5:47 AM EST 04/13/2011 5:55 AM EST Randy Padilla MD CHEMISTRY ORDERABLES Performing Organization Address [facility] Co de Phone Number CERNER MILLENNIUM * (ABNORMAL) BLOOD GAS 2 ARTERIAL (04/13/2011 5:42 AM EST) pH, Arterial 7.36 CERNER MILLENNIUM PCO2, Arterial 36 mmHg CERNE R MILLENNIUM PO2, Arterial 71(L) mmHg CERNER MILLENNIUM Bicarbonate, Arterial 19.9(L) mmol/L CERNER MILLENNIUM Base Excess, Arterial -5.6(L) mmol/L CERNER MILLENNIUM Hgb Blood Gas 12.1(L) gm/dL CERNER MILLENNIUM Comment: Total Hemoglobin (in gm/dL) ?Based on [facility] Hematology ranges: ?Age ?Reference Range Less than [...] MD HEMATOLOGY ORDERABLE S Performing Organization Address [facility] Phone Number DONNIE JUNIORIUM * APTT (04/13/2011 4:00 AM EST) Partial Thromboplastin Time 27 25 - 37 sec DONNIE MILLENNIUM Comment: Recommended therapeutic PTT range for full dose unfractionated heparin is 80-114 seconds. Blood specimen (specimen) 04/13/2011 4:00 AM EST 04/13/2011 4:10 AM EST Robyn Fowler MD HEMATOLOGY ORDERABLE S Performing Organization Address [facility] Phone Number DONNIE DIETZ * (ABNORMAL) Prothrombin Time (04/13/2011 4:00 AM EST) Prothrombin Time 14.8(H) 12.3 - 14.7 sec [facility] Comment: [facility] Transfusion Committee Guidelines: INR less than 2.0, PTT less than OR equal to 43.5 seconds, or Fibrinogen greater than or equal to 100 mg/dl indicate adequate procoagulant activity for hemostasis in patients without underlying bleeding disorders. International Normalization Ratio 1.1 0.9 - 1.1 DONNIE GISELAAMINAHIUM Blood specimen (specimen) 04/13/2011 4:00 AM EST 04/13/2011 4:10 AM EST Narrative Authorizing Provider Result Telma oFwler MD HEMATOLOGY ORDERABLE S Performing Organization Address [facility] Phone Number DONNIE DIETZ * (ABNORMAL) Basic Metabolic Panel (non-fasting) (04/13/2011 4:00 AM EST) Glucose 158 60 - 199 mg/dL [place] MILLENNIUM Comment:Diabetes: >=200 mg/d L plus symptoms Blood Urea Nitrogen 12 10 - 20 mg/dL CERNER MILLENNIUM Creatinine 1.12 0.80 - 1.50 mg/dL CERNER MILLENNIUM Sodium 139 135 - 145 mmol/L CERNER MILLENNIUM Potassium 3.7 3.5 - 5.0 mmol/L CERNER MILLENNIUM [...] Fowler MD CHEMISTRY ORDERABLES Performing Organization Address [facility] Co de Phone Number DONNIE DIETZ * (ABNORMAL) CBC (with Diff) (04/13/2011 4:00 [...] MD HEMATOLOGY ORDERABLE S Performing Organization Address [facility] de Phone Number DONNIE DIETZ * XR chest PA or [...] Comment: Total Hemoglobin (in gm/dL) ?Based on [facility] Hematology ranges: ?Age ?Reference Range Less than [...] Art 165 CERNER MILLENNIUM Blood specimen (specimen) 04/12/2011 11:57 PM EST 04/12/2011 11:57 PM EST Randy Padilla MD POINT OF CARE TEST O RDERABLES Performing Organization Address [facility] Phone Number [place] [facility] * Lactic acid, plasma (04/12/2011 11:55 PM EST) Lactic Acid 1.8 0.5 - 2.2 mmol/L [facility] Comment:result rechecked-llu Blood specimen (specimen) 04/12/2011 11:55 PM EST 04/13/2011 12:04 AM EST Randy Padilla MD CHEMISTRY ORDERABLES Performing Organization Address [facility] Phone Number [place] [facility] * POCT GLUCOSE LAB USE ONLY (04/12/2011 8:41 PM EST) Glucose, POC 129 60 - 199 mg/dL [facility] Comment: Supplemental ranges: <110 mg/dL before meals <200 mg/dL all other times of the day Blood specimen (specimen) 04/12/2011 8:41 PM EST 04/12/2011 8:41 PM EST Randy Padilla MD POINT OF CARE TEST O RDERAJAZZY Performing Organization Address [facility] Phone Number [place] [facility] * (ABNORMAL) BLOOD GAS 2 ARTERIAL (04/12/2011 8:05 PM EST) pH, Arterial 7.37 7.35 - 7.45 [place] MILLENNIUM PCO2, Arterial 35 35 - 45 mmHg [place] MILLENNIUM PO2, Arterial 72(L) 85 - 104 mmHg [place] MILLENNIUM Bicarbonate, Arterial 19.6(L) 20.0 - 26.0 mmol/L CERNER MILLENNIUM Base Excess, Arterial -5.8(L) -3.0 - 3.0 mmol/L CERNER MILLENNIUM Hgb Blood Gas 12.0(L) 13.7 - 17.5 gm/dL CERNER MILLENNIUM Comment: Total Hemoglobin (in gm/dL) ?Based on [facility] Hematology ranges: ?Age ?Reference Range Less than [...] MD HEMATOLOGY ORDERABLE S Performing Organization Address [facility] Co de Phone Number CERNER MILLENNIUM * (ABNORMAL) Lactic acid, plasma (04/12/2011 5:25 PM EST) Lactic Acid 4.5(H) 0.5 - 2.2 mmol/L CERNER MILLENNIUM Blood specimen (specimen) 04/12/2011 5:25 PM EST 04/12/2011 5:40 PM EST Randy Padilla MD CHEMISTRY ORDERABLES Performing Organization Address [facility] Co de Phone Number CERNER MILLENNIUM * [...] Standard Deviation 40.4 35.0 - 46.0 fL DONNIE DIETZ RDW coefficient of variation 12.3 10.9 - 14.4 % DONNIE DIETZ Mean Platelet Volume 10.2 9.0 - 12.0 fL DONNIE DIETZ Blood specimen (specimen) 04/12/2011 5:25 PM EST [...] 7.29(Criti juan manuel) CERNER MILLENNIUM Comment:Noted by brass and wind instrument repairer. PCO2, Arterial 41 mmHg CERNE R MILLENNIUM PO2, Arterial 74(L) mmHg CERNER MILLENNIUM Bicarbonate, Arterial 19.6(L) mmol/L CERNER MILLENNIUM Base Excess, Arterial -6.9(L) mmol/L CERNER MILLENNIUM Hgb Blood Gas 13.0(L) gm/dL CERNER MILLENNIUM Comment: Total Hemoglobin (in gm/dL) ?Based on [facility] Hematology ranges: ?Age ?Reference Range Less than [...] CARE TEST O RDERABLES CERNER MILLENNIUM * POCT GLUCOSE LAB USE ONLY (04/12/2011 4:09 PM EST) Glucose, POC 181 60 - 199 mg/dL CERNER MILLENNIUM Comment: Supplemental ranges: <110 mg/dL before meals <200 mg/dL all other times of the day Blood specimen (specimen) 04/12/2011 4:09 PM EST 04/12/2011 4:09 PM EST Randy Padilla MD POINT OF CARE TEST O BHASKAR [place] [facility] * (ABNORMAL) POCT GLUCOSE LAB USE ONLY (04/12/2011 3:49 PM EST) Glucose, POC 217(H) 60 - 199 mg/dL [facility] MILLENNIUM Comment: Supplemental ranges: <110 mg/dL before meals <200 mg/dL all other times of the day Blood specimen (specimen) 04/12/2011 3:49 PM EST 04/12/2011 3:49 PM EST Randy Padilla MD POINT OF CARE TEST O BHASKAR Performing Organization Address [facility] Co de Phone Number [place] [facility] * (ABNORMAL) BLOOD GAS ARTERIAL (04/12/2011 3:10 [...] Comment: Total Hemoglobin (in gm/dL) ?Based on [facility] Hematology ranges: ?Age ?Reference Range Less than [...] Padilla MD CHEMISTRY ORDERABLES Performing Organization Address [facility] Phone Number DONNIE JUNIORIUM * POCT GLUCOSE LAB USE ONLY (04/12/2011 2:57 PM EST) Glucose, POC 198 60 - 199 mg/dL [facility] M[facility] Comment: Supplemental ranges: <110 mg/dL before meals <200 mg/dL all other times of the day Blood specimen (specimen) 04/12/2011 2:57 PM EST 04/12/2011 2:57 PM EST Randy Padilla MD POINT OF CARE TEST O RDERABLES Performing Organization Address [facility] Phone Number DONNIE HIGGINSENNIUM * KAUR HOLD (04/12/2011 2:55 PM EST) Kaur Hold Sample in lab. DONNIE HIGGINSENNIUM Blood specimen (specimen) 04/12/2011 2:55 PM EST 04/12/2011 3:30 PM EST Randy Padilla MD CHEMISTRY ORDERABLES Performing Organization Address [facility] Phone Number DONNIE HIGGINSENNIUM * (ABNORMAL) Hepatic Function Panel (04/12/2011 2:55 PM EST) Protein, Total 4.6(L) 6.4 - 8.3 gm/dL CERNER MILLENNIUM Albumin 2.7(L) 3.2 - 5.2 gm/dL CERNER MILLENNIUM Aspartate Aminotransferase 28 0 - 39 unit/L CERNER MILLENNIUM Alanine Aminotransferase 42 0 - 55 unit/L CERNER MILLENNIUM Alkaline Phosphatase 62 40 - 120 unit/L [facility] MILLENNIUM Bilirubin, Total 0.3 0.2 - 1.3 mg/dL CERNER MILLENNIUM Bilirubin, Direct 0.1 0.0 - 0.3 mg/dL CERNER MILLENNIUM Blood specimen (specimen) 04/12/2011 2:55 PM EST 04/12/2011 3:22 PM EST Randy Padilla MD CHEMISTRY ORDERABLES Performing Organization Address [facility] Phone Number DONNIE JUNIORIUM * (ABNORMAL) Phosphorus (04/12/2011 2:55 PM EST) Phosphorus 4.6(H) 2.5 - 4.5 mg/dL DONNIE JUNIORIUM Blood specimen (specimen) 04/12/2011 2:55 PM EST 04/12/2011 3:22 PM EST Randy Padilla MD CHEMISTRY ORDERABLES Performing Organization Address [facility] Co nm Phone Number [facility] J [facility] * (ABNORMAL) Magnesium (04/12/2011 2:55 PM EST) Magnesium 0.54(L) 0.69 - 1.07 mmol/L DONNIE JUNIORIUM Blood specimen (specimen) 04/12/2011 2:55 PM EST 04/12/2011 3:22 PM EST Randy Padilla MD CHEMISTRY ORDERABLES Performing Organization Address [facility] Phone Number DONNIE DIETZ * (ABNORMAL) Prothrombin Time (04/12/2011 2:55 PM EST) Prothrombin Time 15.8(H) 12.3 - 14.7 sec [facility] HIGGINSENNIUM Comment: [facility] Transfusion Committee Guidelines: INR less than 2.0, PTT less than OR equal to 43.5 seconds, or Fibrinogen greater than or equal to 100 mg/dl indicate adequate procoagulant activity for hemostasis in patients without underlying bleeding disorders. International Normalization Ratio 1.2(H) 0.9 - 1.1 DONNIE HIGGINSENNIUM Blood specimen (specimen) 04/12/2011 2:55 PM EST 04/12/2011 3:22 PM EST Randy Padilla MD HEMATOLOGY ORDERABLE S Performing Organization Address [facility]/ZIP Co de Phone Number DONNIE [email or web address] * APTT (04/12/2011 2:55 PM EST) Partial Thromboplastin Time 32 25 - 37 sec CERNER MILLENNIUM Comment: Recommended therapeutic PTT range for full dose unfractionated heparin is 80-114 seconds. Blood specimen (specimen) 04/12/2011 2:55 PM EST 04/12/2011 3:22 PM EST Randy Padilla MD HEMATOLOGY ORDERABLE S Performing Organization Address [facility] Co de Phone Number DONNIE JUNIORIUM * (ABNORMAL) Basic Metabolic Panel (non-fasting) (04/12/2011 [...] PM EST Randy Padilla MD CHEMISTRY ORDERABLES [facility] * (ABNORMAL) BLOOD GAS 2 ARTERIAL (04/12/2011 2:06 PM EST) pH, Arterial 7.21(Criti juan manuel) CERNER MILLENNIUM Comment:Noted by brass and wind instrument repairer. PCO2, Arterial 41 mmHg CERNE R MILLENNIUM PO2, Arterial 73(L) mmHg CERNER MILLENNIUM Bicarbonate, Arterial 16.1(L) mmol/L CERNER MILLENNIUM Base Excess, Arterial -11.7(L) mmol/L CERNER MILLENNIUM Hgb Blood Gas 12.4(L) gm/dL CERNER MILLENNIUM Comment: Total Hemoglobin (in gm/dL) ?Based on [facility] Hematology ranges: ?Age ?Reference Range Less than [...] 7.20(Criti juan manuel) CERNER MILLENNIUM Comment:Noted by brass and wind instrument repairer. PCO2, Arterial 48(H) mmHg CERNE R MILLENNIUM PO2, Arterial 109(H) mmHg CERNER MILLENNIUM Bicarbonate, Arterial 18.5(L) mmol/L CERNER MILLENNIUM Base Excess, Arterial -9.5(L) mmol/L CERNER MILLENNIUM Hgb Blood Gas 13.0(L) gm/dL CERNER MILLENNIUM Comment: Total Hemoglobin (in gm/dL) ?Based on [facility] Hematology ranges: ?Age ?Reference Range Less than [...] MD POINT OF CARE TEST O BHASKAR [place] [facility] * (ABNORMAL) POCT GLUCOSE LAB USE ONLY (04/12/2011 12:34 PM EST) Glucose, POC 207(H) 60 - 199 mg/dL CERNER MILLENNIUM Comment: Supplemental ranges: <110 mg/dL before meals <200 mg/dL all other times of the day Blood specimen (specimen) 04/12/2011 12:34 PM EST 04/12/2011 12:34 PM EST Randy Padilla MD POINT OF CARE TEST O BHASKAR [place] Human DemandENNIUM * (ABNORMAL) BLOOD GAS 2 ARTERIAL (04/12/2011 11:27 AM EST) pH, Arterial 7.38 CERNER MILLENNIUM PCO2, Arterial 35 mmHg CERNE R MILLENNIUM PO2, Arterial 96 mmHg CERNER MILLENNIUM Bicarbonate, Arterial 20.6 mmol/L CERNER MILLENNIUM Base Excess, Arterial -4.5(L) mmol/L CERNER MILLENNIUM Hgb Blood Gas 15.2 gm/dL CERNER MILLENNIUM Comment: Total Hemoglobin (in gm/dL) ?Based on [facility] Hematology ranges: ?Age ?Reference Range Less than [...] CL Whole Blood 104 mmol/L CERNE R MILLENNIUM Gluc Whole Bld 260(H) mg/dL CERNE R MILLENNIUM Comment:Diabetes: >=200 mg/d L plus symptoms. FIO2 Art 21 % CERNER MILLENNIUM PF Ratio Art 457 CERNER MILLENNIUM Blood specimen (specimen) 04/12/2011 11:27 AM EST 04/12/2011 11:27 AM EST Randy Padilla MD POINT OF CARE TEST O RDERAJAZZY Performing Organization Address [facility] de Phone Number CERMARTI HIGGINSENNIUM * (ABNORMAL) POCT GLUCOSE LAB USE ONLY (04/12/2011 9:53 AM EST) Glucose, POC 286(H) 60 - 199 mg/dL CERNER MILLENNIUM Comment: Supplemental ranges: <110 mg/dL before meals <200 mg/dL all other times of the day Blood specimen (specimen) 04/12/2011 9:53 AM EST 04/12/2011 9:53 AM EST Randy Padilla MD POINT OF CARE TEST O RDERAJAZZY Performing Organization Address [facility] de Phone Number DONNIE JUNIORIUM * ANTIBODY SCREEN (04/12/2011 8:25 AM EST) Ab Screen Interp Negative CERNER MILLENNIUM Expires at [id number] on: [id number] CERNER MILLENNIUM Blood specimen (specimen) 04/12/2011 8:25 AM EST 04/12/2011 8:38 AM EST Erik Gill MD BLOOD BANK LAB ORDER BRIANNE Performing Organization Address [facility] de Phone Number DONNIE JUNIORIUM * ABO/RH TYPING (04/12/2011 8:25 AM EST) ABORH Type O Pos DONNIE DIETZ Blood specimen (specimen) 04/12/2011 8:25 AM EST 04/12/2011 8:38 AM EST Erik Gill MD BLOOD BANK LAB ORDER BRIANNE Performing Organization Address [facility] de Phone Number DONNIE DIETZ * Green Tube HOLD (04/12/2011 8:25 AM EST) Green Hold Sample in lab. DONNIE DIETZ Blood specimen (specimen) 04/12/2011 8:25 AM EST 04/12/2011 8:38 AM EST Erik Gill MD CHEMISTRY ORDERABLES Performing Organization Address [facility] de Phone Number DONNIE DIETZ * Lavender Tube HOLD (04/12/2011 8:25 AM EST) Lavender Hold Sample in lab. DONNIE DIETZ Blood specimen (specimen) 04/12/2011 8:25 AM EST 04/12/2011 8:38 AM EST Erik Gill MD HEMATOLOGY ORDERABLE S Performing Organization Address [facility] Phone Number DONNIE DIETZ * XR CHEST [...] (Bezet) 450 ms MUSE SYSTEM Calculated P [place] 33 degrees MUSE SYSTEM Calculated R [place] 50 degrees MUSE SYSTEM Calculated T [place] 66 degrees MUSE SYSTEM INTERPRETATION Sinus rhythm [...] THOMPSON ?Ordered By: ROBYN FOWLER ? MR#: [id number] ?LOC: ??ICUN ? /Sex: ?? 7 (75 years), ? Male ? PROCEDURE: Urine Culture ?SOURCE: [facility] ? COLLECTED: 04/12/2011 07:26 ? STARTED: 04/12/2011 08:10 ? FINAL REPORT ? Final Report ? Verified: 06:39 ? No growth (Less than 1,000 cfu/ml). ? ____ CERNER MILLENNIUM Urine specimen obtained via straight catheter (specimen) 04/12/2011 7:26 AM EST 04/12/2011 8:10 AM EST Robyn Fowler MD MICROBIOLOGY - GENER AL ORDERABLES Performing Organization Address City/[facility] Co de Phone Number [place] MILLENNIUM * (ABNORMAL) Urinalysis with microscopic (04/12/2011 [...] Urine Dipstick Clear Clear CERNER MILLENNIUM Specific [place] Urine Automated 1.021 1.002 - 1.030 CERNER MILLENNIUM Color, Urine Dipstick Yellow Yellow CERNER MILLENNIUM RBC, Urine Not Present 0 - 3 CERNER MILLENNIUM WBC, Urine Not Present 0 - 3 CERNER MILLENNIUM Urine specimen (specimen) 04/12/2011 7:25 AM EST 04/12/2011 7:39 AM EST Robyn Fowler MD URINE ORDERABLES DONNIE JUNIORIUM * (ABNORMAL) DIFFERENTIAL, AUTOMATED (04/12/2011 7:15 AM [...] MD HEMATOLOGY ORDERABLE S DONNIE DIETZ * CK (04/12/2011 7:15 AM EST) Creatine Kinase 57 0 - 200 unit/L CERNER MILLENNIUM Blood specimen (specimen) 04/12/2011 7:15 AM EST 04/12/2011 7:34 AM EST Robyn Fowler MD CHEMISTRY ORDERABLES Performing Organization Address [facility] de Phone Number DONNIE JUNIORFORMERLY [facility] * Troponin T (04/12/2011 7:15 AM EST) Troponin-T <0.03 <=0.03 ng/mL [facility] Comment: 0.03 ng/mL: Represents the 99th percentile upper reference limit for normals. >0.03 ng/mL: Elevated cardiac troponin T level indicative of myocardial damage. Diagnosis of acute, evolving or recent MT requires a typical rise and gradual fall [...] consensus document of the Joint Society of Cardiology/[place] College [employer] Committee for the redefinition of myocardial infarction. Journal of the [place] College of [employer]iology 2000; 36: 959-969] Blood specimen (specimen) 04/12/2011 7:15 AM EST 04/12/2011 7:34 AM EST Robyn Fowler MD CHEMISTRY ORDERABLES Performing Organization Address [facility] de Phone Number DONNIE JUNIORFORMERLY [facility] * APTT (04/12/2011 7:15 AM EST) Partial Thromboplastin Time 28 25 - 37 sec [facility] Comment: Recommended therapeutic PTT range for full dose unfractionated heparin is 80-114 seconds. Blood specimen (specimen) 04/12/2011 7:15 AM EST 04/12/2011 7:34 AM EST Robyn Fowler MD HEMATOLOGY ORDERABLE S Performing Organization Address [facility] Co de Phone Number DONNIE JUNIORFORMERLY [facility], [facility] * Prothrombin Time (04/12/2011 7:15 AM EST) Prothrombin Time 13.2 12.3 - 14.7 sec [facility] Comment: [facility] Transfusion Committee Guidelines: INR less than 2.0, PTT less than OR equal to 43.5 seconds, or Fibrinogen greater than or equal to 100 mg/dl indicate adequate procoagulant activity for hemostasis in patients without underlying bleeding disorders. International Normalization Ratio 1.0 0.9 - 1.1 [place] [facility] Blood specimen (specimen) 04/12/2011 7:15 AM EST 04/12/2011 7:34 AM EST Robyn Fowler MD HEMATOLOGY ORDERABLE S Performing Organization Address [facility] Co nm Phone Number [place] [facility] * (ABNORMAL) Glucose, random (04/12/2011 7:15 AM EST) Glucose 299(H) 60 - 199 mg/dL [facility] Comment:Diabetes: >=200 mg/d L plus symptoms Blood specimen (specimen) 04/12/2011 7:15 AM EST 04/12/2011 7:34 AM EST Robyn Fowler MD CHEMISTRY ORDERABLES Performing Organization Address [facility] Phone Number [place] [facility] * Creatinine, serum (04/12/2011 7:15 AM EST) Creatinine 0.98 0.80 - 1.50 mg/dL [facility] Est Glomerular Filtration Rate >60 >=60 [place] [facility] Comment: The National Kidney Disease Education Program [...] 7:15 AM EST 04/12/2011 7:34 AM EST Rboyn Fowler MD CHEMISTRY ORDERABLES Performing Organization Address [facility] de Phone Number CERNER MILLENNIUM * BUN (04/12/2011 7:15 AM EST) Blood Urea Nitrogen 14 10 - 20 mg/dL CERNER MILLENNIUM Blood specimen (specimen) 04/12/2011 7:15 AM EST 04/12/2011 7:34 AM EST Robyn Fowler MD CHEMISTRY ORDERABLES Performing Organization Address [facility] de Phone Number CERNER MILLENNIUM * Electrolytes panel (04/12/2011 7:15 AM EST) [...] Fowler MD CHEMISTRY ORDERABLES Performing Organization Address City/[facility] Co de Phone Number DONNIE JUNIORIUM * (ABNORMAL) CBC (with Diff) (04/12/2011 7:15 [...] Fowler MD HEMATOLOGY ORDERABLE S DONNIE DIETZ documented in this encounter Visit Diagnoses Diagnosis [...] all sources in 24 hours., Routine Given 04/15/2011 4:23 PM EST 650 mg Given 04/15/2011 6:06 AM EST 650 mg Given 04/14/2011 11:04 PM EST 650 mg aspirin chewable tablet 81 mg 81 mg, Oral, DAILY, First dose on Fri04/14/11 at 0900, Until Discontinued, Routine Given 04/16/2011 8:34 AM EST 81 mg Given 04/15/2011 9:00 AM EST 81 mg Given 04/14/2011 9:00 AM EST 81 mg aspirin suppository 300 mg 300 mg, Rectal, DAILY, First dose on Fri04/13/11 at 1230, Until Discontinued, Routine Given 04/13/2011 12:30 PM EST 300 mg ciprofloxacin (CIPRO) tablet 500 mg 500 mg, Oral, 2 TIMES DAILY, First dose on Fri04/16/11 at 1130, Until Discontinued, Routine Given 04/16/2011 11:44 AM EST 500 mg dexmedetomidine (PRECEDEX) 400 mcg in sodium chloride 0.9% 100 mL infusion 0-0.5 mcg/kg/hr ? 84.6 kg Adjusted weight (rounded to 0-10.6 mL/hr), Intravenous, CONTINUOUS, Starting on [facility] 04/13/11 at 1045, Until Fri04/14/11 at 0734, Titrate to RASS of 0 with goal to titrate off fentanyl and propofol. New Bag 04/13/2011 10:45 AM EST 0.5 mcg/kg/hr 10.6 mL/hr DILTiazem (DILACOR XR) XR capsule 240 mg 240 mg, Oral, DAILY, First dose on Fri04/14/11 at 1100, Until Discontinued, Routine Given 04/16/2011 8:35 AM EST 240 mg Given 04/15/2011 9:00 AM EST 240 mg Given 04/14/2011 11:00 AM EST 240 mg enalapril (VASOTEC) tablet 10 mg 10 mg, Oral, DAILY, First dose (after last modification) on Fri04/16/11 at 0900, Until Discontinued, Routine Given 04/16/2011 9:38 AM EST 10 mg enalapril (VASOTEC) tablet 5 mg 5 mg, Oral, DAILY, First dose on Fri04/15/11 at 0900, Until Discontinued, Routine Given 04/15/2011 9:00 AM EST 5 mg esomeprazole (NEXIUM) capsule 40 mg 40 mg, Oral, DAILY, First dose on 04/13/11 at 0900, Until Discontinued, If unable to take PO, may give IV, Routine Given 04/16/2011 8:35 AM EST 40 mg Given 04/15/2011 9:00 AM EST 40 mg esomeprazole (NEXIUM) injection 40 mg 40 mg, Intravenous, DAILY, First dose on 04/13/11 at 0900, Until Discontinued, Routine Given 04/14/2011 9:0 0 AM EST 40 mg Given 04/13/2011 9:00 AM EST 40 mg fentaNYL 2500mcg/50mL infusion 0-150 mcg/hr (rounded to 0-3 mL/hr), Intravenous, CONTINUOUS, Starting on Fri04/12/11 at 1545, Until Fri04/14/11 at 0734 Rate/Dose Change 04/13/2011 2:07 PM EST 25 mcg/hr 0.5 mL/hr Rate/Dose Change 04/13/2011 8:00 AM EST 150 mcg/hr 3 mL/hr Rate/Dose Verify 04/12/2011 7:46 PM EST 50 mcg/hr 1 mL/hr fentaNYL 50mcg/mL injection 25 mcg, Intravenous, EVERY 1 HOUR PRN, Starting on Fri04/12/11 at 1523, Until Fri04/14/11 at 0107, Pain, PRN pain scale greater than goal or pre-procedure, Routine Given 04/14/2011 12:28 AM EST 25 mcg Given 04/13/2011 7:45 PM EST 25 mcg Given 04/12/2011 4:46 PM EST 25 mcg fentaNYL 50mcg/mL injection 25-50 mcg, Intravenous, EVERY 1 HOUR PRN, Starting on Fri04/14/11 at 0106, Until Fri04/14/11 at 0929, Pain, PRN pain scale greater than goal or pre-procedure, Routine Given 04/14/2011 9:[address] 50 mcg Given 04/14/2011 6:15 AM EST 50 mcg Given 04/14/2011 4:00 AM EST 50 mcg hydrALAZINE (APRESOLINE) injection 10 mg 10 mg, Intravenous, ONCE, 1 dose, On Fri04/12/11 at 0815 Given 04/12/2011 8:05 AM EST 10 mg HYDROmorphone (DILAUDID) tablet 2-4 mg 2-4 mg, Oral, EVERY 4 HOURS PRN, Starting on Fri04/14/11 at 0929, Until Fri04/16/11 at 1506, Pain, Routine Given 04/16/2011 8:34 AM EST 2 mg Given 04/16/2011 12:00 AM EST 4 mg Given 04/15/2011 4:10 AM EST 4 mg HYDROmorphone (PF) (DILAUDID) 2 mg/mL injection 0.2 mg 0.2 mg, Intravenous, EVERY 15 MIN PRN, Starting on Fri04/12/11 at 0800, Until Fri04/14/11 at 0929, Pain, IV bolus to achieve ordered pain scale goal, Routine Given 04/14/2011 8:24 AM EST 0.2 mg Given 04/14/2011 8:08 AM EST 0.2 mg Given 04/14/2011 6:30 AM EST 0.2 mg HYDROmorphone (PF) (DILAUDID) 2 mg/mL injection 0.2 mg 0.2 mg, Intravenous, EVERY 4 HOURS PRN, Starting on Fri04/14/11 at 0928, Until Fri04/15/11 at 0914, Pain, IV bolus to achieve ordered pain scale goal, Routine Given 04/14/2011 11:03 PM EST 0.2 mg insulin aspart (NOVOLOG) PEN injection 1-4 Units 1-4 Units, Subcutaneous, 4 TIMES DAILY, First [...] for new basal insulin orders , Routine Given 04/16/2011 1:00 PM EST 4 Units Given 04/16/2011 8:05 AM EST 2 Units Given 04/15/2011 9:01 PM EST 3 Units ketorolac (TORADOL) injection 15 mg 15 mg, Intravenous, EVERY 6 HOURS PRN, 4 doses, Starting on Fri04/14/11 at 0934, Until 04/15/11 at 2359, Pain, Routine Given 04/15/2011 8:24 AM EST 15 mg Given 04/14/2011 5:41 PM EST 15 mg Given 04/14/2011 11:34 AM EST 15 mg ketorolac (TORADOL) injection 15 mg 15 mg, Intravenous, ONCE, 1 dose, On Tu04/16/11 at 0145, Routine Given 04/16/2011 1:42 AM EST 15 mg labetalol (NORMODYNE;TRANDATE) IV syringe 10-20 mg 10-20 mg, Intravenous, EVERY 1 HOUR PRN, Starting on Fri04/12/11 at 0800, Until Fri04/12/11 at 1626, High Blood Pressure, to maintain sbp under 120, Routine Given 04/12/2011 9:06 AM EST 20 mg labetalol (NORMODYNE;TRANDATE) IV syringe 10-20 mg 10-20 mg, Intravenous, EVERY 2 HOURS PRN, Starting on 04/13/11 at 1748, Until Fri04/15/11 at 0914, High Blood Pressure, for SBP greater than 160, Routine Given 04/15/2011 6:06 AM EST 10 mg Given 04/14/2011 11:04 PM EST 10 mg Given 04/14/2011 9:10 AM EST 10 mg lactated ringers 1,000 mL IV bolus Intravenous, ONCE, 1 dose, On Fri04/12/11 at 1530 Given by Other 04/12/2011 3:30 PM EST lactated ringers 1,000 mL IV bolus Intravenous, ONCE, 1 dose, On Fri04/12/11 at 1645 Given 04/12/2011 4:45 PM EST lactated ringers 1,000 mL IV bolus Intravenous, ONCE, 1 dose, On Fri04/12/11 at 1830 Given 04/12/2011 6:30 PM EST lactated ringers infusion 100 mL/hr, Intravenous, CONTINUOUS, Starting on Fri04/12/11 at 1545, Until 04/14/11 at 0734 New Bag 04/13/2011 6:00 AM EST 100 mL/hr 100 mL/hr Rate/Dose Verify 04/12/2011 7:46 PM EST 100 mL/hr 100 mL/ hr Rate/Dose Verify 04/12/2011 3:45 PM EST 100 mL/hr 100 mL/ hr metroNIDAZOLE (FLAGYL) tablet 500 mg 500 mg, Oral, 3 TIMES DAILY, First dose on Fri04/16/11 at 1130, Until Discontinued, Routine Given 04/16/2011 11:44 AM EST 500 mg ondansetron (ZOFRAN) injection 4-8 mg 4-8 mg, Intravenous, EVERY 8 HOURS PRN, Starting on Fri04/12/11 at 0759, Until Fri04/16/11 at 1506, Nausea, Routine Given 04/12/2011 8:05 AM EST 8 mg PHENYLephrine (VENU-SYNEPHRINE) 20 mg in sodium chloride 250 mL infusion 10-180 mcg/min (rounded to 7.5-135 mL/hr), Intravenous, CONTINUOUS, Starting on Fri04/12/11 at 1515, Until Fri04/14/11 at 0929, Titrate to SBP >100., PACU Recovery, Routine Rate/Dose Change 04/12/2011 6:00 PM EST 10 mcg/min 7.5 mL/hr Rate/Dose Change 04/12/2011 5:30 PM EST 20 mcg/min 15 mL/h r Rate/Dose Change 04/12/2011 5:00 PM EST 30 mcg/min 22.5 mL /hr piperacillin-tazobactam (ZOSYN) 3.375 g in dextrose 5% 50 mL 3.375 g, Intravenous, EVERY 6 HOURS SCHEDULED, First dose on Fri04/13/11 at 0000, Until Discontinued, Administer over 30 Minutes Given 04/16/2011 6:24 AM EST 3.375 g 100 mL/hr Given 04/16/2011 1:00 AM EST 3.375 g 100 mL/hr Given 04/15/2011 6:00 PM EST 3.375 g 100 mL/hr potassium chloride 10 mEq in 100 mL 10 mEq, Intravenous, EVERY 1 HOUR PRN, Starting on Fri04/13/11 at 1010, Until Fri04/15/11 at 0914, Administer over 60 Minutes, hypokalemia, Administer 4 times 10 meq/100 mL bags, each over 30-60 minutes for serum potassium (mMol/L) of 3.3 - 3.8 New Bag 04/13/2011 2:00 PM EST 10 mEq 100 mL/hr potassium chloride SA (K-DUR;KLOR-CON) tablet 40 mEq 40 mEq, Oral, EVERY 4 HOURS PRN, Starting on 04/13/11 at 1548, Until 04/15/11 at 0914, hypokalemia, Administer for serum potassium (mMol/L) of 3.6 - 3.8 , Routine Given 04/15/2011 5:53 AM EST 40 mEq Given 04/14/2011 4:00 AM EST 40 mEq potassium chloride SA (K-DUR;KLOR-CON) tablet 60 mEq 60 mEq, Oral, 2 TIMES DAILY, First dose on Fri04/16/11 at 1045, Until Discontinued, 20 mEq tablet may be dissolved in water for administration, Routine Given 04/16/2011 10:59 AM EST 60 mEq propofol (DIPRIVAN) 10 mg/mL infusion 1 dose, Starting on Fri04/12/11 at 1451, Until Fri04/12/11 at 1626, RIMMA BENNETT: Cabinet Override propofol (DIPRIVAN) infusion 5-50 mcg/kg/min, Intravenous, CONTINUOUS, Starting on Fri04/12/11 at 1630, Until Fri04/12/11 at 1755, Maintenance, short term sedation for mechanically ventilated patient. Titrate to RASS goal., Routine Rate/Dose Verify 04/12/2011 4:30 PM EST 30 mcg/kg/min mL/hr New Bag 04/12/2011 3:00 PM EST 30 mcg/kg/min mL/hr propofol (DIPRIVAN) infusion 5-50 mcg/kg/min ? 102.1 kg (rounded to 3.1-30.6 mL/hr), Intravenous, CONTINUOUS, Starting on Fri04/12/11 at 1815, Until Fri04/14/11 at 0734, Maintenance, short term sedation for mechanically ventilated patient. Titrate to RASS goal., Routine New Bag 04/13/2011 1:10 PM EST 15 mcg/kg/min 9.2 mL/hr New Bag 04/13/2011 8:00 AM EST 35 mcg/kg/min 21.4 mL/hr Rate/Dose Change 04/13/2011 3:50 AM EST 40 mcg/kg/min 24.5 mL/hr sodium chloride 0.9% 1,000 mL IV bolus Intravenous, ONCE, 1 dose, On Fri04/12/11 at 1845 Given 04/12/2011 6:45 PM EST sodium chloride 0.9% infusion 100 mL/hr, Intravenous, CONTINUOUS, Starting on Fri04/12/11 at 1015, Until Fri04/12/11 at 1625 New Bag 04/12/2011 9:00 AM EST 100 mL/hr 100 mL/hr vancomycin 1.5 g in sodium chloride 0.9% 250 mL 1,500 mg (1.5 g), Intravenous, EVERY 12 HOURS, First dose (after last reorder) on Fri04/12/11 at 2300, Until Discontinued, This medication may have an associated drug lab level. Please check for lab orders, Routine Given 04/15/2011 10:34 PM EST 1,500 mg Given 04/15/2011 11:00 AM EST 1,500 mg Given 04/14/2011 10:00 PM EST 1,500 mg documented in this encounter Active and Recently Administered Medications Times are shown in EST. Scheduled Medication Order 04/14/2011 04/15/2011 04/16/2011 aspirin chewable tablet 81 mg 81 mg, Oral, DAILY, First dose on Fri04/14/11 at 0900, Until Discontinued, Routine 0900 (Given - Provider: Vishnu Mckoy RN) 0900 (Given - Provider: Vishnu Mckoy RN) 0834 (Given - Provider: Leandra Monreal RN) ciprofloxacin (CIPRO) tablet 500 mg 500 mg, [...] DAILY, First dose (after last modification) on Fri04/16/11 at 0900, Until Discontinued, Routine 0938 (Given - Provider: Leandra Monreal RN) enalapril (VASOTEC) tablet 5 mg (CANCELED) 5 mg, Oral, DAILY, First dose on 04/15/11 at 0900, Until Discontinued, Routine 0900 (Given - Provider: Vishnu Mckoy RN) esomeprazole (NEXIUM) capsule 40 mg (CANCELED)(Linked Group 1) 40 mg, Oral, DAILY, First dose on 04/13/11 at 0900, Until Discontinued, If unable to take PO, may give IV, Routine 0900 (See Alternative - Provider: Vishnu Mckoy RN) 0900 (Given - Provider: Vishnu Mckoy RN) 0835 (Given - Provider: Leandra Monreal RN) esomeprazole (NEXIUM) injection 40 mg (CANCELED)(Linked Group 1) 40 mg, Intravenous, DAILY, First dose on 04/13/11 at 0900, Until Discontinued, Routine 0900 (Given [...] for new basal insulin orders , Routine 09 (Given - Provider: Vishnu Mckoy RN)1300 (Given - Provider: Lizet Engle RN)1700 (Given - Provider: Vishnu Mckoy RN)2046 (Given - Provider: Esme Gamboa, MARILYN) 0900 (Given - Provider: Vishnu Mckoy RN)1300 (Given - Provider: Cinthia Huerta, MARILYN)1700 (Given - Provider: Christopher Barnes, MARILYN)210 (Given - Provider: Tawana Valenzuela RN) 0805 (Given - Provider: Leandra Monreal RN)1300 (Given - Provider: Leandra Monreal RN) ketorolac [...] Provider: Vishnu Mckoy RN)1800 (Given - Provider: Christopher Barnes RN) 0100 (Given - Provider: Tawana [...] Ginny Britton RN)1100 (Given - Provider: Vishnu Mckoy RN)2200 (Given - Provider: Esme Gamboa RN) 1100 (Given - Provider: Vishnu Mckoy RN)2234 (Given - Provider: Tawana Valenzuela, MARILYN) PRN Medication Order 04/14/2011 04/15/2011 04/16/2011 acetaminophen (TYLENOL) tablet 650 mg 650 mg, Oral, EVERY 4 HOURS PRN, Starting on 04/14/11 at 0106, Until Fri04/16/11 at 1506, Pain, Maximum dose of acetaminophen is 4000 mg from all sources in 24 hours., Routine 0200 (Given - Provider: Ginny Britton RN)2304 (Given - Provider: Esme Gamboa RN) 0606 (Given - Provider: Esme Gamboa, MARILYN)1623 (Given - Provider: Christopher Barnes RN) fentaNYL 50mcg/mL injection (CANCELED) 25 mcg, Intravenous, EVERY 1 HOUR PRN, Starting on Fri04/12/11 at 1523, Until Fri04/14/11 at 0107, Pain, PRN pain scale greater than goal or pre-procedure, Routine 0028 (Given - Provider: Ginny Britton RN) fentaNYL 50mcg/mL injection (CANCELED) 25-50 mcg, Intravenous, EVERY 1 HOUR PRN, Starting on 04/14/11 at 0106, Until Fri04/14/11 at 0929, Pain, PRN pain scale greater than goal or pre-procedure, Routine 0200 (Given - Provider: Ginny Britton RN)0400 (Given - Provider: Ginny Britton RN)0615 (Given - Provider: Ginny Britton RN)0907 (Given - Provider: Vishnu Mckoy RN) HYDROmorphone (DILAUDID) tablet 2-4 mg 2-4 mg, Oral, EVERY 4 HOURS PRN, Starting on 04/14/11 at 0929, Until Fri04/16/11 at 1506, Pain, Routine 1049 (Given - Provider: Vishnu Mckoy RN)1443 (Given - Provider: Vishnu Mckoy, MARILYN)2303 (Given - Provider: Esme Gamboa, MARILYN) 0410 (Given - Provider: Ced Mathews) 0000 (Given - Provider: Tawana Valenzuela, MARILYN)0834 (Given - Provider: Leandra Monreal RN) HYDROmorphone [...] Ginny Britton RN)0213 (Given - Provider: Ginny Britton, MARILYN)0403 (Given - Provider: Ginny Britton RN)0416 (Given - Provider: Ginny Britton RN)0430 (Given - Provider: Ginny Britton RN)0615 (Given - Provider: Ginny Britton RN)0630 (Given - Provider: Ginny Britton RN)0808 (Given - Provider: Vishnu Mckoy RN)0824 (Given - Provider: Vishnu Mckoy RN) HYDROmorphone (PF) (DILAUDID) 2 mg/mL injection 0.2 mg (CANCELED) 0.2 mg, Intravenous, EVERY 4 HOURS PRN, Starting on 04/14/11 at 0928, Until Fri04/15/11 at 0914, Pain, IV bolus to achieve ordered pain scale goal, Routine 2303 (Given - Provider: Esme Gamboa RN) ketorolac (TORADOL) injection 15 mg () 15 mg, Intravenous, EVERY 6 HOURS PRN, 4 doses, Starting on 04/14/11 at 0934, Until Fri04/15/11 at 2359, Pain, Routine 1134 (Given - Provider: Vishnu Mckoy RN)1741 (Given - Provider: Vishnu Mckoy RN) 0824 (Given - Provider: Vishnu Mckoy RN) labetalol (NORMODYNE;TRANDATE) IV syringe 10-20 mg (CANCELED) 10-20 mg, Intravenous, EVERY 2 HOURS PRN, Starting on 04/13/11 at 1748, Until 04/15/11 at 0914, High Blood Pressure, for SBP greater than 160, Routine 0910 (Given - Provider: Vishnu Mckoy RN)2304 (Given - Provider: Esme Gamboa RN) 0606 (Given - Provider: Esme Gamboa RN) potassium chloride SA (K-DUR;KLOR-CON) tablet 40 mEq (CANCELED)(Linked Group 2) 40 mEq, Oral, EVERY 4 HOURS PRN, Starting on 04/13/11 at 1548, Until 04/15/11 at 0914, hypokalemia, Administer for serum potassium [...] PRN, Starting on 04/13/11 at 1548, Until 04/15/11 at 0914, hypokalemia, Administer for serum potassium (mMol/L) of 3.9 - 4 , Routine Or potassium chloride SA (K-DUR;KLOR-CON) tablet 40 mEq (CANCELED)Jump to med 40 mEq, Oral, EVERY 4 HOURS PRN, Starting on 04/13/11 at 1548, Until 04/15/11 at 0914, hypokalemia, Administer for serum potassium (mMol/L) of 3.6 - 3.8 , Routine documented in this encounter Care Teams T [employer] Turner Relationship Specialty Start Date End Date Arely Vickers MD PCP - General 04/12/11 09/15/16 documented as of this encounter
[2023-12-21 08:29] LABS: Abs Immature Grans 0.08 10^3/uL (0.0-0.06); Absolute Basophil Count 0.05 10^3/uL (0.0-0.2); Absolute Eosinophil Count 0.23 10^3/uL (0.0-0.7); Absolute Lymphocyte Count 1.35 10^3/uL (1.2-3.4); Basophils % 0.3 %; Eosinophils % 1.5 %; HGB 12.5 g/dL (13.5-17.5); Immature Grans % 0.5 %; Lymphocytes % 8.8 %; MCH 29.7 pg (27.0-33.0); MCHC 32.1 % (32.0-36.0); MCV 93 fL (80-95); MPV 9.8 fL (8.0-11.0); Monocytes % 10.4 %; Neutrophils % 78.5 %; Platelet Count 246 10^3/uL (130-400); RBC 4.21 10^6/uL (4.36-5.78); RDW 12.5 % (11.8-14.1); RDW-SD 42.8 fL; WBC 15.36 10^3/uL (4.4-10.8)
[2023-12-21 08:31] LABS: Absolute Neutrophil Count 12.06 10^3/uL (1.2-6.7)
[2023-12-21 08:43] LABS: ALT 31 U/L (16-63); AST 27 U/L (15-37); Albumin 2.3 g/dL (3.4-5.0); Alkaline Phosphatase 151 U/L (46-116); Anion Gap 10.6 mmol/L (3-11); BUN 42 mg/dL (7-18); Bilirubin, Total 0.52 mg/dL (0.2-1.0); CO2 24.4 mmol/L (21.0-32.0); CREATININE 3.4 mg/dL (0.70-1.30); Chloride 104 mmol/L (98-107); Estimated GFR 16.77 (mL/min/1.73m2); Glucose 130 mg/dL (74-106); Lipase 32 U/L (16-77); Potassium 3.7 mmol/L (3.5-5.1); Sodium 139 mmol/L (136-145); Total Protein 6.4 g/dL (6.4-8.2)
[2023-12-21] MEDS: MORPHine 10 MG/ML VIAL 2 MG IVP (08:45)
--- NOTE | 2023-12-21 08:45 | DI.CT_ITS ---
Exam(s) CT LUMBAR SPINE RECONS CT ABDOMEN PELVIS WO EXAM: CT ABDOMEN PELVIS WO and CT lumbar spine recons CLINICAL HISTORY: back and pelvic pain, elevated wbc count. TECHNIQUE: Imaging Protocol: Axial computed tomography images with coronal and sagittal reformatted images were created and reviewed. COMPARISON: CT CT ABDOMEN PELVIS W from 07/18/[address] ABDOMEN PELVIS WO from 10/06/[address] LUMBAR SPINE RECONS from 12/21/2023 FINDINGS: ABDOMEN: Lung Bases: Coronary artery calcifications are present. Liver: Normal density. No measurable mass. Gallbladder and biliary tract: No radiodense calculus or biliary ductal dilation. Pancreas: Normal density, no abnormal calcifications or inflammatory process. Spleen: Normal. Kidneys: There is again seen bilateral renal cortical atrophy.There is a calcification in the lower p ole of the left kidney which may represent a vascular calcification versus a nonobstructing stone. T here is again seen a cyst in the inferior pole of the left kidney. No follow-up is recommended. Adrenal glands: No mass is seen. Lymph nodes: Within normal limits. Abdominal Aorta: There is again seen an infrarenal abdominal aortic aneurysm. It is stable in size a t 8.6 cm AP. There is an endovascular aorta iliac stent in place. Extensive atherosclerotic calcifi cation is present. PELVIS: Bladder:Symmetric distention, no gross wall thickening. Bowel: There is diverticulosis of the colon without evidence of acute diverticulitis. There is no ev idence of bowel obstruction or bowel wall thickening. No evidence of appendicitis. The stomach is i ncompletely distended limiting evaluation. Peritoneal cavity: No ascites, collection or mesenteric inflammatory response. No free air. Reproductive organs: Mildly enlarged prostate gland. Bones: Within normal limits. There is ankylosis of the sacroiliac joints bilaterally. Degenerative c hanges are seen in the hips. Soft Tissues: Within normal limits. CT recons of the lumbar spine: Age-appropriate degenerative changes are seen in the lumbar spine. No acute fracture or subluxation. There is disc space narrowing and vacuum discs at L3-4, L4-5 and L5- S1. Degenerative changes of the facets are seen at multiple levels of the lumbar spine but particula rly at L3-L4. There is marked central spinal canal stenosis at L3-L4 and moderately severe at L4-L5. Multilevel neural foraminal stenosis is seen in the lower lumbar spine. The neural foraminal steno sis is most marked at L3-4 and L4-L5. IMPRESSION: 1. Multilevel degenerative changes in the lumbar spine most marked at L3-4 and L4-L5. 2. No acute fracture or subluxation in the lumbar spine. 3. Colonic diverticulosis without evidence of acute diverticulitis. 4. No evidence of obstructive uropathy. RADIATION DOSE DELIVERED: Total DLP DATA REPOSITORY: All CT scans at this facility are submitted to the National Radiology Data Registry (NRDR) Dose Index Registry (DIR) with the [employer] (ACR). RADIATION OPTIMIZATION: All CT scans at this facility use at least one of these dose optimization te chniques: automated exposure control; mA and/or kV adjustment per patient size (includes targeted exa ms where dose is matched to clinical indication); or iterative reconstruction.
[2023-12-21 08:55] LABS: Calcium 8.6 mg/dL (8.5-10.1)
[2023-12-21 09:15] LABS: Diff Comment Diff Reviewed
--- NOTE | 2023-12-21 09:53 | DI.VRAD_ITS ---
PROCEDURE INFORMATION: Exam: CT Lumbar Spine Without Contrast Exam date and time: 12/21/2023 9:20 AM Age: 88 years old Clinical indication: Low back pain TECHNIQUE: Imaging protocol: Computed tomography of the lumbar spine without contrast. COMPARISON: CT ABDOMEN PELVIS WO 12/21/2023 9:20 AM FINDINGS: Bones/joints: Mild degenerative disease of bilateral hip joints. There is ankylosis of bilateral sacroiliac joints. No acute fracture. There is demineralization visualized bones. Mild retrolisthesis L4 over L5. Moderate bilateral facet joint arthropathy of the lower lumbar spine. At L1-L2, Posterior osteophyte disc complex at L1-L2 with mild bony canal stenosis. At L2-L3, bilateral facet joint arthropathy no significant thecal sac compression or neural narrowing. At L3-L4, posterior osteophyte disc complex with bilateral facet joint arthropathy causing severe thecal sac compression and severe narrowing of both neural foramina. At L4-L5: Posterior osteophyte disc complex with bilateral facet joint arthropathy and ligamentum flavum hypertrophy causing severe thecal sac compression and severe narrowing both neural foramina. At L5-S1, posterior osteophyte disc complex causing mild thecal sac compression and severe narrowing of both neural foramina. Vasculature: There are vascular calcifications. Post endovascular abdominal aortic aneurysm repair. Soft tissues: Unremarkable. IMPRESSION: Multilevel degenerative disease of the lumbar spine, most pronounced at L3-L4 and L4-L5. Dictated and Authenticated by: Tyrone Lunsford MD. Ordering:LELO Perera MD
--- NOTE | 2023-12-21 09:56 | DI.VRAD_ITS ---
PROCEDURE INFORMATION: Exam: CT Abdomen And Pelvis Without Contrast Exam date and time: 12/21/2023 9:20 AM Age: 88 years old Clinical indication: Other: Suprapubic pelvic, flank pain TECHNIQUE: Imaging protocol: Computed tomography of the abdomen and pelvis without contrast. COMPARISON: CT ABDOMEN PELVIS WO 10/06/2023 1:55 AM FINDINGS: Lungs: Atelectatic changes in both lung bases. Coronary arteries: Mild coronary calcifications. Liver: Normal. No mass. Gallbladder and biliary ducts: Normal. No calcified stones. No ductal dilation. Pancreas: Normal. No ductal dilation. Spleen: Normal. No splenomegaly. Adrenal glands: Normal. No mass. Kidneys and ureters: Two nonobstructing stones in the left kidney measuring up to 6 mm in the lower pole. There is a 2 cm simple cyst in the left kidney. No hydronephrosis on either side. Stomach and bowel: Post distal partial colectomy. Diverticulosis of the descending colon. Appendix: No evidence of appendicitis. Intraperitoneal space: Unremarkable. No free air. No significant fluid collection. Vasculature: Vascular calcifications. Post EVAR of abdominal aortic aneurysm. Stable size of the aneurysm sac. Lymph nodes: Unremarkable. No enlarged lymph nodes. Urinary bladder: Unremarkable as visualized. Reproductive: Prostate gland calcifications. Bones/joints: Mild degenerative disease of the symphysis pubis. Ankylosing of bilateral sacroiliac joints. Moderate degenerative disease of both hip joints. Multilevel degenerative disease of the lumbar spine, most pronounced L3-L4 and L4-L5. Soft tissues: Fat containing left inguinal hernia. IMPRESSION: No acute intra-abdominal process. Dictated and Authenticated by: Tyrone Lunsford MD. Ordering:LELO Perera MD
[2023-12-21 11:01] LABS: Bilirubin Negative (Negative); Blood Trace-intact (Negative); Clarity Clear (Clear); Glucose Negative (Negative); Ketones Negative (Negative); Leukocyte Esterase Negative (Negative); Nitrite Negative (Negative); Specific Gravity 1.015 (1.005-1.025); Urobilinogen 0.2 mg/dL (Up to 0.2); pH 5.5 (5-8)
[2023-12-21 11:09] LABS: Bacteria Rare HPF (Negative); C & S Indicated? No; Crystals Negative HPF (Negative); Epithelial Cells Rare HPF (Negative); Mucus Negative (Negative); RBC 0-2 HPF (0-2); WBC 0-2 HPF (0-5)
[2023-12-21 11:12] VITALS: BP 127/51; PULSE 62; RESP 18; TEMP 36.8; O2SAT 97
--- NOTE | 2023-12-21 11:19 | ED.GENADUL_ITS ---
Discharge Plan Disposition Patient Disposition: Home Discharge Details Clinical Impression: Back pain Primary Care Provider: Maximino Lucero ED Provider: Dilma Gallardo Home Meds and New Rx's Prescriptions: New prednisone 10 mg tablet 10 mg PO DIRECTED Qty: 54 0RF Rx Instructions: see taper instructions gabapentin [Neurontin] 100 mg capsule 100 mg PO TID Qty: 42 0RF Continued lisinopril 5 mg tablet 5 mg PO DAILY amiodarone 200 mg tablet 200 mg PO DAILY Patient Comments: 11/27/20 started at [facility] for afib, pt was loaded on 400 mg BID for 7 days, RH tamsulosin 0.4 mg capsule 0.4 mg PO DAILY amlodipine 2.5 mg tablet 2.5 mg PO DAILY fluocinolone 0.01 % cream 1 applic topical BID magnesium oxide 400 mg magnesium capsule 400 mg PO BID Patient Comments: pt. reports he has been out of it nitroglycerin [Nitrostat] 0.4 mg tablet, sublingual 0.4 mg sublingual Q5 MIN PRN X3 PRN Rx Instructions: as a single dose; administer 5-10 minutes before situation known to precipitate angina attack apixaban 2.5 mg tablet 2.5 mg PO BID Patient Comments: 11/27/20 started at [facility] [facility] due to elevated creatinine 2.4 RH insulin aspart U-100 [Novolog U-100 Insulin aspart] 100 unit/mL solution 9 unit subcut TID alogliptin 6.25 mg tablet 6.25 mg PO DAILY calcitriol 0.25 mcg capsule 0.25 mcg PO DAILY cholecalciferol (vitamin D3) 25 mcg (1,000 unit) capsule 25 mcg PO DAILY insulin glargine [Lantus U-100 Insulin] 100 unit/mL solution 25 unit subcut DAILY lisinopril 10 mg tablet 10 mg PO DAILY ibuprofen 200 MG capsule 600 - 800 mg PO PRN PRN atorvastatin [Lipitor] 40 MG tablet 40 mg PO QPM acetaminophen [Acetaminophen Extra Strength] 500 mg Tablet 1,000 mg PO Q8H PRN cyanocobalamin (vitamin B-12) 1,000 mcg Tablet 1,000 mcg PO DAILY furosemide 40 mg tablet 80 mg PO DAILY albuterol sulfate 90 mcg/actuation HFA aerosol inhaler 2 puff INHALATION ONCE PRN Patient Comments: INHALE TWO PUFFS BY MOUTH EVERY 4 TO 6 HOURS NEEDED metoprolol succinate 50 mg tablet extended release 24 hr 25 mg PO DAILY Qty: 0 0RF Discharge Instructions Instructions: Low Back Pain ED Additional Instructions: take prednisone as prescribed this will increase your blood sugar, dose adjust with insulin You may try taking the Neurontin, do not combine with any alcohol or other s ubstances that may make you drowsy I given you several tablets of oxycodone, do not take this 78 hours of taking the Neurontin medication Follow-up with your primary care physician at your scheduled appointment this week and use a walker with ambulation Please return should you develop any new or worsening complaints We will call you if your urinalysis shows any acute abnormality Referrals: Maximino Lucero [Primary Care Provider] - 3 days HPI General Date/Time Provider Initiated Documentation: 12/21/23 07:44 . HPI Narrative: This 88-year-old male with a history of CKD, back pain, abdominal aortic aneurysm, hypertension, hyperlipidemia presents with report of back pain with radiation into abdomen. States has been present for the past 2 weeks. Denies any strength or sensation change. Denies any fever or chills. Denies any chest pain or shortness of breath. Worse with ambulation revision. Denies any fever chills or trauma. Related Data Home Medications ?Medication ?Instructions ?Recorded ?Confirmed ibuprofen 200 mg capsule 600 - 800 mg PO PRN PRN 09/05/15 10/14/23 atorvastatin 40 mg tablet (Lipitor) 40 mg PO QPM 09/20/17 10/14/23 fluocinolone 0.01 % topical cream 1 applic topical BID 01/14/20 10/14/23 magnesium oxide 400 mg PO BID 01/14/20 10/14/23 nitroglycerin 0.4 mg sublingual 0.4 mg sublingual Q5 MIN PRN X3 PRN 01/14/20 10/14/23 tablet (Nitrostat) acetaminophen 500 mg tablet 1,000 mg PO Q8H PRN 02/29/20 10/14/23 (Acetaminophen Extra Strength) cyanocobalamin (vitamin B-12) 1,000 mcg PO DAILY 03/01/20 10/14/23 1,000 mcg tablet amiodarone 200 mg tablet 200 mg PO DAILY 11/27/20 10/14/23 lisinopril 5 mg tablet 5 mg PO DAILY 11/27/20 10/14/23 tamsulosin 0.4 mg capsule 0.4 mg PO DAILY 11/27/20 10/14/23 apixaban 2.5 mg tablet 2.5 mg PO BID 05/31/21 10/14/23 insulin aspart U-100 100 unit/mL 9 unit subcut TID 05/31/21 10/14/23 subcutaneous solution (Novolog U-100 Insulin aspart) amlodipine 2.5 mg tablet 2.5 mg PO DAILY 07/11/22 10/14/23 furosemide 40 mg tablet 80 mg PO DAILY swelling 07/11/22 10/14/23 albuterol sulfate 90 mcg/actuation 2 puff inhalation ONCE PRN 05/17/23 10/14/23 aerosol inhaler alogliptin 6.25 mg tablet 6.25 mg PO DAILY 10/07/23 10/14/23 calcitriol 0.25 mcg capsule 0.25 mcg PO DAILY 10/07/23 10/14/23 cholecalciferol (vitamin D3) 25 25 mcg PO DAILY 10/07/23 10/14/23 mcg (1,000 unit) capsule insulin glargine 100 unit/mL 25 unit subcut DAILY 10/07/23 10/14/23 subcutaneous solution (Lantus U-100 Insulin) lisinopril 10 mg tablet 10 mg PO DAILY 10/07/23 10/14/23 metoprolol succinate 50 mg 25 mg (1/2 x 50 mg) PO DAILY #0 10/07/23 10/14/23 tablet,extended release 24 hr tabs gabapentin 100 mg capsule 100 mg PO TID #42 caps 12/21/23 (Neurontin) prednisone 10 mg tablet 10 mg PO DIRECTED #54 tabs 12/21/23 Previous Rx's ?Medication ?Instructions ?Recorded metoprolol succinate 50 mg 25 mg (1/2 x 50 mg) PO DAILY #0 10/07/23 tablet,extended release 24 hr tabs gabapentin 100 mg capsule 100 mg PO TID #42 caps 12/21/23 (Neurontin) prednisone 10 mg tablet 10 mg PO DIRECTED #54 tabs 12/21/23 Allergies Allergy/AdvReac Type Severity Reaction Status Date / Time adhesive Allergy Severe significant Verified 10/14/23 14:39 skin reaction, swelling, erythema, discomfort neomycin Allergy Unknown Verified 10/14/23 14:39 General Stated Complaint: Nk/Back Pain ASTON: 3 Exam Narrative Exam Narrative: Alert and oriented 88-year-old male in no acute distress, no abdominal tenderness, specifically no abdominal bruit or pulsatile mass, no CVA tenderness, lumbar and paraspinal tenderness, negative straight legs raise, negative NC, strength and sensation intact distally to bilateral lower extremities, neurovascularly intact. Course Vital Signs Vital signs: Vital Signs Temperature 36.3 C L 12/21/23 07:48 Pulse 70 12/21/23 07:48 Respiratory Rate 16 12/21/23 07:48 Blood Pressure 130/51 L 12/21/23 07:48 Pulse Oximetry 95 12/21/23 07:48 Temperature 36.8 C 12/21/23 11:12 Temperature Source Tympanic 12/21/23 11:12 Pulse 62 12/21/23 11:12 Respiratory Rate 18 12/21/23 11:12 Respiratory Effort Normal 12/21/23 08:43 Blood Pressure 127/51 L 12/21/23 11:12 Blood Pressure Position Sitting 12/21/23 07:48 Pulse Oximetry 97 12/21/23 11:12 Oxygen Delivery Method Room Air 12/21/23 11:12 Oxygen Flow Rate 0 12/21/23 11:12 Pain Level 6 12/21/23 07:48 Lab/Test Results Lab/Test Results: Laboratory Tests Range/Units 12/21/23 12/21/23 08:22 10:53 WBC (4.4-10.8) 10^3/uL 15.36 H RBC (4.36-5.78) 10^6/uL 4.21 L Hgb (13.5-17.5) g/dL 12.5 L Hct (40.0-50.0) % 39.0 L MCV (80-95) fL 93 MCH (27.0-33.0) pg 29.7 MCHC (32.0-36.0) % 32.1 RDW (11.8-14.1) % 12.5 Plt Count (130-400) 10^3/uL 246 MPV (8.0-11.0) fL 9.8 Immature Gran % % 0.5 Neutrophils % % 78.5 Lymphocytes % % 8.8 Monocytes % % 10.4 Eosinophils % % 1.5 Basophils % % 0.3 Nucleated RBC % (0.0-0.3) % 0.0 Absolute Neutrophils (1.2-6.7) 10^3/uL 12.06 H Absolute Lymphocytes (1.2-3.4) 10^3/uL 1.35 Absolute Monocytes (0.1-0.8) 10^3/uL 1.60 H Absolute Eosinophils (0.0-0.7) 10^3/uL 0.23 Absolute Basophils (0.0-0.2) 10^3/uL 0.05 Sodium (136-145) mmol/L 139 Potassium (3.5-5.1) mmol/L 3.7 Chloride (98-107) mmol/L 104 Carbon Dioxide (21.0-32.0) mmol/L 24.4 Anion Gap (3-11) mmol/L 10.6 BUN (7-18) mg/dL 42 H Creatinine (0.70-1.30) mg/dL 3.4 H Est GFR (CKD-EPI 2020) (mL/min/1.73m2) 16.77 Glucose (74-106) mg/dL 130 H Calcium (8.5-10.1) mg/dL 8.6 Total Bilirubin (0.2-1.0) mg/dL 0.52 AST (15-37) U/L 27 ALT (16-63) U/L 31 Alkaline Phosphatase (46-116) U/L 151 H Total Protein (6.4-8.2) g/dL 6.4 Albumin (3.4-5.0) g/dL 2.3 L Lipase (16-77) U/L 32 Urine Color (Yellow) Yellow Urine Clarity (Clear) Clear Urine pH (5-8) 5.5 Ur Specific [place] (1.005-1.025) 1.015 Urine Protein (Neg-Trace) mg/dL Trace Urine Ketones (Negative) mg/dL Negative Urine Blood (Negative) Trace-intact H Urine Nitrite (Negative) Negative Urine Bilirubin (Negative) Negative Urine Urobilinogen (Up to 0.2) mg/dL 0.2 Ur Leukocyte Esterase (Negative) Negative Urine RBC (0-2) HPF 0-2 Urine WBC (0-5) HPF 0-2 Ur Epithelial Cells (Negative) HPF Rare Urine Crystals (Negative) HPF Negative Urine Bacteria (Negative) HPF Rare Urine Mucus (Negative) Negative Ur Culture Indicated? No Urine Glucose (Negative) mg/dL Negative Medical Decision Making 88-year-old male presenting with back pain, CT abdomen and pelvis was ordered in addition to lumbar spine, degenerative changes noted overlying area of tenderness, placed on prednisone taper and Neurontin as needed for pain Tylenol as needed discomfort. The patient is ambulatory with steady gait, he is in no acute distress and requesting discharge home. CT results reviewed from radiology interpretation. Diagnostic labs are baseline for patient with chronic kidney disease. Leukocytosis, patient has had this for the past several months encouraged to follow-up with primary care regarding this finding. No clinical findings consistent with cauda equina syndrome. Return precautions reviewed and patient expressed understanding Quality:SDOH Health Related Social Needs: No Data to Display PFSH All Active Problems (Updated 12/21/23 @ 10:53 by QUINN Hennessy) Back pain (Acute) Gout of left knee (Acute) Trigger thumb of left hand (Acute) Acute kidney injury superimposed on CKD (Acute) Severe sepsis (Acute) Chronic kidney disease, stage 4 (severe) (Acute) Medication management (Acute) amiodarone for afib EKG Q 12 Months RH HTN (hypertension) (Acute) CAD (coronary artery disease) (Chronic) Dermatitis (Acute) Atrial fibrillation (Chronic) Chest pain (Acute) Acute non-ST elevation myocardial infarction (NSTEMI) (Acute) Wound dehiscence, surgical (Acute) Type 2 diabetes mellitus (Chronic) Fatty liver (Acute) Chronic kidney disease, stage 3 (Chronic) Mass of salivary gland (Acute) Ischemic cardiomyopathy (Chronic) Skin lesion of scalp (Acute) Anemia (Chronic) Hearing impairment (Acute) Medical History HLD (hyperlipidemia) Former smoker Balanitis Atrial flutter Edema Cruz's disease Phimosis (10/17/15) Erectile dysfunction AAA (abdominal aortic aneurysm) Hypomagnesemia CHF (congestive heart failure) Renal insufficiency 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) Diverticulitis of large intestine with abscess Hypercholesterolemia Diabetes mellitus Myocardial infarct Phimosis Surgical History Status post colostomy takedown (~03/01/20) S/P left hemicolectomy (~07/19/18) H/O phimosis s/p repair History of heart artery stent S/P hernia repair History of endovascular stent graft for abdominal aortic aneurysm (AAA) Social History Smoking/Tobacco Use Status: Former Tobacco Use Quit Date: 01/03/17 Tobacco: How many years used: 60 Smoking risk assessment performed?: Yes Alcohol Intake: former Drug use: Never Substance use type: does not use Housing: house Do you feel safe at home: Yes Do you feel safe in your relationship?: Yes
[2023-12-21 11:23] VITALS: BP 127/51; PULSE 62; RESP 18; TEMP 36.8; O2SAT 97
== END 2023-12-21 11:34 | disposition home or self-care (01) ==
PROVIDERS: Emergency Provider Physician Assistant; PCP Student in an Organized Health Care Education/Training Program
DX: M54.50 Low back pain, unspecified (principal); R10.2 Pelvic and perineal pain; N18.4 Chronic kidney disease, stage 4 (severe); Z86.79 Personal history of other diseases of the circulatory system
CPT/HCPCS: 36415; 80053; 83690; 96365; 96375; 99284; 74176; 81003; 81015; 85025; 99283; J0131; J2270

== ENCOUNTER 2023-12-23 16:33 | Emergency (ER) | payer MEDICARE, SELFPAY ==
[2023-12-23 16:35] VITALS: BP 132/68; PULSE 68; RESP 16; TEMP 36.1; O2SAT 96
--- OUTSIDE RECORDS SUMMARY | 2023-12-23 16:44 | XMS_ITS | Encounter Summary ---
Author Organization [facility] Address [address] [place] [address] Care Team Providers Care Wood Machinist Apprentice Name Role Phone Rolando Moise MD Primary Care Provider [phone] Encounter Details Date Type Department Care Team (Late st Contact Info) Description 10/10/2023 Lab Requisition [facility] Pathology & Laboratory Medicine - [address] [phone] Outr Resulting Lab, Provider Social History Tobacco [...] Lyme Ab Negative Negative 10/13/2023 13:01 EDT [facility] Blood VENOUS BLOOD / Unknown 10/09/2023 14:15 EDT 10/10/2023 17:29 EDT Provider Outr Resulting Lab IMMUNOLOGY A ND SEROLOGY ORDERABLES [facility] [address] [place] [address] documented in this encounter Visit Diagnoses Not on filedocumented in this encounter Care Teams Wood Machinist Apprentice Relationship Specialty Start Date End Date Rolando Moise MD [address] [place] [address] PCP - General 10/30/16 documented as of this encounter
--- OUTSIDE RECORDS SUMMARY | 2023-12-23 16:44 | XMS_ITS | Clinical Summary ---
Author Organization [facility] Address [address] [place] [address] Care Team Providers Care Environmental Monitoring Technician Name Role Phone Rolando Moise MD Primary Care Provider [phone] Encounters Date Type Department Care Team Description 10/10/2023 Lab Requisition [facility] Pathology & Laboratory [address] [address] Outr Resulting Lab, Provider 10/06/2023 Lab Requisition [facility] Pathology & Laboratory [address] [address] Outr Resulting Lab, Provider from Last 3 [...] Lyme Ab Negative Negative 10/13/2023 13:01 EDT [facility] Blood VENOUS BLOOD / Unknown 10/09/2023 14:15 EDT 10/10/2023 17:29 EDT Provider Outr Resulting Lab IMMUNOLOGY A ND SEROLOGY ORDERABLES Performing Organization Address City/State/[facility] Co de Phone Number [facility] [address] [place] [address] from Last 3 Months Care Teams Environmental Monitoring Technician Relationship Specialty Start Date End Date Rolando Moise MD [facility] [address] [place] [address] PCP - General 10/30/16
--- OUTSIDE RECORDS SUMMARY | 2023-12-23 16:44 | XMS_ITS | Encounter Summary ---
Author Organization [facility] Address [address] [place] [address] Care Team Providers Care Pickle Solution Maker Name Role Phone Rolando Moise MD Primary Care Provider [phone] Encounter Details Date Type Department Care Team (Late st Contact Info) Description 03/06/2023 Lab Requisition [facility] Pathology & Laboratory Medicine - [address] [phone] Outr Resulting Lab, Provider Social History Tobacco [...] 19 - 88 pg/mL 03/07/2023 18:47 EDT [facility] Blood VENOUS BLOOD / Unknown 03/06/2023 15:45 EDT 03/07/2023 18:28 EDT Provider Outr Resulting Lab CHEMISTRY & BLOOD GAS ORDERABLES [facility] [address] [place] [address] documented in this encounter Visit Diagnoses Not on filedocumented in this encounter Care Teams Pickle Solution Maker Relationship Specialty Start Date End Date Rolando Moise MD [address] [place] [address] PCP - General 10/30/16 documented as of this encounter
--- OUTSIDE RECORDS SUMMARY | 2023-12-23 16:44 | XMS_ITS | Referral Summary ---
Author Organization [facility] Address [address] [place] [address] Care Team Providers Care Senior Operations Manager Name Role Phone Rolando Moise MD Primary Care Provider [phone] Encounters Date Type Department Care Team Description 10/10/2023 Lab Requisition [facility] Pathology & Laboratory [address] [address] Outr Resulting Lab, Provider 10/06/2023 Lab Requisition [facility] Pathology & Laboratory [address] [address] Outr Resulting Lab, Provider from Last 3 [...] Lyme Ab Negative Negative 10/13/2023 13:01 EDT [facility] Blood VENOUS BLOOD / Unknown 10/09/2023 14:15 EDT 10/10/2023 17:29 EDT Provider Outr Resulting Lab IMMUNOLOGY A ND SEROLOGY ORDERABLES [facility] [address] [place] [address] from Last 3 Months Care Teams Senior Operations Manager Relationship Specialty Start Date End Date Rolando Moise MD [address] [place] [address] PCP - General 10/30/16
--- OUTSIDE RECORDS SUMMARY | 2023-12-23 16:44 | XMS_ITS | Encounter Summary ---
Author Organization [facility] Address [address] [place] [address] Care Team Providers Care Agile Developer Name Role Phone Rolando Moise MD Primary Care Provider [phone] Encounter Details Date Type Department Care Team (Late st Contact Info) Description 07/22/2022 Lab Requisition [facility] Pathology & Laboratory Medicine - [address] [address] Outr Resulting Lab, Provider Social [...] 19 - 88 pg/mL 07/22/2022 22:48 EDT [facility] Blood VENOUS BLOOD / Unknown 07/22/2022 11:00 EDT 07/22/2022 21:28 EDT Provider Outr Resulting Lab CHEMISTRY & BLOOD GAS ORDERABLES [facility] [address] [place] [address] documented in this encounter Visit Diagnoses Not on filedocumented in this encounter Care Teams Agile Developer Relationship Specialty Start Date End Date Rolando Moise MD [facility] [place] [address] PCP - General 10/30/16 documented as of this encounter
--- OUTSIDE RECORDS SUMMARY | 2023-12-23 16:44 | XMS_ITS | Encounter Summary ---
Author Organization [facility] Address [address] [place] [address] Care Team Providers Care Rubber Ball Finisher Name Role Phone Rolando Moise MD Primary Care Provider [phone] Encounter Details Date Type Department Care Team (Late st Contact Info) Description 10/06/2023 Lab Requisition [facility] [place] [facility] Pathology & Laboratory Medicine - [address] [phone] Outr Resulting Lab, Provider Social History Tobacco [...] Lyme Ab Negative Negative 10/07/2023 10:22 EDT [facility] Blood VENOUS BLOOD / Unknown 10/06/2023 0:04 EDT 10/06/2023 16:59 EDT Provider Outr Resulting Lab IMMUNOLOGY A ND SEROLOGY ORDERABLES [facility] [address] [place] [address] documented in this encounter Visit Diagnoses Not on filedocumented in this encounter Care Teams Rubber Ball Finisher Relationship Specialty Start Date End Date Rolando Moise MD [address] [place] [address] PCP - General 10/30/16 documented as of this encounter
--- OUTSIDE RECORDS SUMMARY | 2023-12-23 16:45 | XMS_ITS | Encounter Summary ---
Author Organization [facility] Address [address] [place] [address] Care Team Providers Care Instructional Aide Name Role Phone Rolando Moise MD Primary Care Provider Encounter Details Date Type Department Care Team (Late st Contact Info) Description 06/06/2020 Lab Requisition [facility] Pathology & Laboratory Medicine - [address] [address] Outr Resulting Lab, Provider Social [...] 19 - 88 pg/mL 06/07/2020 8:52 EST [facility] Blood VENOUS BLOOD / Unknown 06/06/2020 10:30 EST 06/06/2020 19:30 EST Provider Outr Resulting Lab CHEMISTRY & BLOOD GAS ORDERABLES [facility] [address] [place] [address] documented in this encounter Visit Diagnoses Not on filedocumented in this encounter Care Teams Instructional Aide Relationship Specialty Start Date End Date Rolando Moise MD [address] [place] [address] PCP - General 10/30/16 documented as of this encounter
--- OUTSIDE RECORDS SUMMARY | 2023-12-23 16:45 | XMS_ITS | Encounter Summary ---
Author Organization [facility] Address [address] [place] [address] Care Team Providers Care Gastroenterology Nurse Name Role Phone Unavailable Primary Care Provider Unavailabl e Encounter Details Date Type Department Care Team (Late st Contact Info) Description 12/12/2011 Results Only [facility] Laboratory Services - [facility] [address] [place] [id number] Sharif Salcedo MD [address] [place] [id number] Social History Tobacco Use Types Packs/Day Years [...] ? CALI THOMPSON ? Accession #: ? [id number] ? : ? 1935 (Age: 76) ??M ? Collect Date: ? 12/12/2011 ? Location: ? [facility] ? Receive Date: ? 12/13/2011 ? Provider: SHARIF SALCEDO MD Copy to: ARELY VICKERS MD ? Final Pathologic Diagnosis: ? Colon, 35 cm, biopsy: - Cauterized colonic tissue, favor hyperplastic polyp. ??See comment. Comment: ? Deeper sections have been examined. ??(Dr. Bal)/[facility] Document reviewed and electronically signed by: EFRAÍN [facility] Report ??Date: 12/17/2011 13:24 By the signature [...] in toto in a single cassette. ??(Tiffanie Prieto)/[facility] End of Report KAILASH SLAUGHTER 12/12/2011 12/13/2011 8:1 7 EDT Sharif Salcedo MD PATHOLOGY ORDERABLE S KAILASH SLAUGHTER [address] [place] [address] documented in this encounter Visit Diagnoses Not on filedocumented in this encounter
--- OUTSIDE RECORDS SUMMARY | 2023-12-23 16:45 | XMS_ITS | Encounter Summary ---
Author Organization [facility] Address [address] [place] [address] Care Team Providers Care Trailhead Maintenance Worker Name Role Phone Rolando Moise MD Primary Care Provider [phone] Encounter Details Date Type Department Care Team [...] on filedocumented in this encounter Care Teams Trailhead Maintenance Worker Relationship Specialty Start Date End Date Rolando Moise MD [facility] [address] [place] [address] PCP - General 10/30/16 documented as of this encounter
--- OUTSIDE RECORDS SUMMARY | 2023-12-23 16:45 | XMS_ITS | Encounter Summary ---
Author Organization [facility] Address [facility] [place] [address] Care Team Providers Care Metal Roaster Name Role Phone Rolando Moise MD Primary Care Provider [phone] Reason for Visit * Reason Comments Skin Check * Consultation (Routine) - Closed Specialty Diagnoses / Procedures Referred By Contrachid t Referred To Contact Dermatology Diagnoses Transient acantholytic dermatosis (juan diego) Rolando Moise MD [address] [place] [address] [place] [address] Ashkan Eason MD [address] [place] [address], [facility] [place] [address] Referral ID Status Reason Start Date Expiration Date V isits Requested Visits Authorized [id number] Closed Consult, Test & Treat 06/13/2022 06/13/2023 1 1 Encounter Details Date Type Department Care Team (Late st Contact Info) Description 07/18/2022 11:00 AM EDT Office Visit Dermatology at [address] [address] Ashkan Eason MD [address] [place] [address], [facility] [place] [address] Pruritus; Xerosis cutis Social History [...] a daily basis to the legs. Obtain [id number] 2. Begin wearing Tubigrip stockings during the daytime taking off at night to help reduce his lowerextremity edema. Pruritus, druze scalp 1. No primary neurologic findings 2. [...] nightly to symptomatic in left temporal scalp.. [id number] mL with 5 refills 6. Return to clinic in another month for repeat check. Prescriptions will be sent to the [facility]. CC: Rolando Moise MD documented in this encounter Plan of Treatment Upcoming Encounters Date Type Department Care Team (Latest Contact Info) Description 01/02/2024 1:30 PM EDT Laboratory Appointment Lab [address] [place] [address] 01/02/2024 3:00 PM EDT Office Visit [place] [address] Adam Costa MD [facility] [place] [address] documented as of this encounter Visit Diagnoses Diagnosis Pruritus Unspecified pruritic disorder Xerosis cutis Other specified disease of sebaceous glands documented in this encounter Care Teams Metal Roaster Relationship Specialty Start Date End Date Rolando Moise MD [address] [place] [address] PCP - General Family Medicine 09/16/16 documented as of this encounter
--- OUTSIDE RECORDS SUMMARY | 2023-12-23 16:45 | XMS_ITS | Encounter Summary ---
[facility] Organization [facility] Address [facility] [place] [address] Care Team Providers Care Planogrammer Name Role Phone Rolando Moise MD Primary Care Provider [phone] Encounter Details Date Type Department Care Team [...] 1:30 PM EDT Laboratory Appointment Lab [address] [place] [address] 01/02/2024 3:00 PM EDT Office Visit [place] [address] Adam Costa MD [facility] [place] [address] documented as of this encounter Visit Diagnoses Not on filedocumented in this encounter Care Teams Planogrammer Relationship Specialty Start Date End Date Rolando Moise MD [facility] [place] [address] PCP - General Family Medicine 09/16/16 documented as of this encounter
--- OUTSIDE RECORDS SUMMARY | 2023-12-23 16:45 | XMS_ITS | Encounter Summary ---
Author Organization [facility] Address [facility] [place] [address] Care Team Providers Care Medical Director Occupational Health Name Role Phone Rolando Moise MD Primary Care Provider Reason for Visit * Reason Onset Date Comments Other 11/10/2020 Encounter Details Date Type Department Care Team (Late st Contact Info) Description 11/10/2020 Telephone Cardiology at [address] [phone] Antonia Martin, RN Other Social History Tobacco [...] PM EDT Call from Mercedes SANDERS from [facility] [phone],questions regarding [facility] discharge (yesterday 11/09/20) medications. Return call to Mercedes,voice message left directing her to contact OCM -contact # given. case management manager while inpatient Penny Bee RN. documented in this encounter Plan of Treatment Upcoming Encounters Date Type Department Care Team (Latest Contact Info) Description 01/02/2024 1:30 PM EDT Laboratory Appointment Lab [address] [place] [address] 01/02/2024 3:00 PM EDT Office Visit Neph[place] [address] Adam Costa MD [facility] [place] [address] documented as of this encounter Visit Diagnoses Not on filedocumented in this encounter Care Teams Medical Director Occupational Health Relationship Specialty Start Date End Date Rolando Moise MD [address] [place] [address] [place] [address] PCP - General Family Medicine 09/16/16 documented as of this encounter
--- OUTSIDE RECORDS SUMMARY | 2023-12-23 16:45 | XMS_ITS | Encounter Summary ---
Author Organization [facility] [place] [address] Care Team Providers Care Institutional Research Coordinator Name Role Phone Rolando Moise MD Primary Care Provider Encounter Details Date Type Department Care Team (Late st Contact Info) Description 11/07/2020 4:20 AM EDT Ancillary Procedure [place] [phone] Rolando Moise MD [facility] [place] [address] Social History Tobacco Use Types Packs/Day Years [...] 1:30 PM EDT Laboratory Appointment Lab [address] [place] [phone] 01/02/2024 3:00 PM EDT Office Visit Nephrology [place] [address] Adam Costa MD [facility] NEPHROLOGY [place], [place] [phone] documented as of this encounter Procedures Procedure Name Priority Date/Time Associated Diagnosis Comments FILM LIBRARY STORAGE ONLY CT CHEST ABDOMEN PELVIS Routine 11/07/2020 4:19 AM EDT documented in this encounter Results * Film Library- Storage Only CT Chest Abdomen Pelvis (11/07/2020 4:19 AM EDT) Narrative [facility] - 11/07/2020 4:19 AM EDT This exam is auto-finalizing. It's purpose is for storage only. Rolando Moise MD IMG FILM LIBRARY ORD ERABLES Performing Organization Address City/State/[facility] Co de Phone Number [place], [place] documented in this encounter Visit Diagnoses Not on filedocumented in this encounter Care Teams Institutional Research Coordinator Relationship Specialty Start Date End Date Rolando Moise MD [address] [place] [address] PCP - General Family Medicine 09/16/16 documented as of this encounter
--- OUTSIDE RECORDS SUMMARY | 2023-12-23 16:45 | XMS_ITS | Encounter Summary ---
Author Organization [facility] Address [address] [place] [address] Care Team Providers Care Want Ad Receiver Name Role Phone Rolando Moise MD Primary Care Provider [phone] Encounter Details Date Type Department Care Team (Late st Contact Info) Description 08/17/2021 Lab Requisition [facility] - [address] [id number] Outr Resulting Lab, Provider Social History Tobacco [...] 19 - 88 pg/mL 08/20/2021 11:29 EDT [facility] Blood VENOUS BLOOD / Unknown 08/16/2021 13:50 EDT 08/17/2021 16:29 EDT Provider Outr Resulting Lab CHEMISTRY & BLOOD GAS ORDERABLES [facility] [address] [place] [address] documented in this encounter Visit Diagnoses Not on filedocumented in this encounter Care Teams Want Ad Receiver Relationship Specialty Start Date End Date Rolando Moise MD [address] [place] [address] PCP - General 10/30/16 documented as of this encounter
--- OUTSIDE RECORDS SUMMARY | 2023-12-23 16:45 | XMS_ITS | Encounter Summary ---
Author Organization [facility] Address [facility] [place] [address] Care Team Providers Care Digital Computer Systems Analyst Name Role Phone Rolando Moise MD Primary Care Provider [phone] Encounter Details Date Type Department Care Team (Late st Contact Info) Description 11/07/2020 Telephone Cardiology at [address] [address] Luis Villaolbos MD [facility] [place] [address] Social History Tobacco Use Types Packs/Day Years [...] oDiag1 (02/2017), ICM (LV EF 35% after MA to 60% 09/2017), AAA s/p endovascular repair (04/2011) who presented to [facility] with chest pain. The day prior to [...] or examined this patient. Luis Villalobos MD Community Recreation Programmer documented in this encounter Plan of Treatment Upcoming Encounters Date Type Department Care Team (Latest Contact Info) Description 01/02/2024 1:30 PM EDT Laboratory Appointment Lab [address] [place] [address] 01/02/2024 3:00 PM EDT Office Visit Neph[place] [address] Adam Costa MD [facility] [place] [address] documented as of this encounter Visit Diagnoses Not on filedocumented in this encounter Care Teams Digital Computer Systems Analyst Relationship Specialty Start Date End Date Rolando Moise MD [address] [place] [address] PCP - General Family Medicine 09/16/16 documented as of this encounter
--- OUTSIDE RECORDS SUMMARY | 2023-12-23 16:45 | XMS_ITS | Encounter Summary ---
Author Organization [facility] [place] [address] Care Team Providers Care Boatbuilder Supervisor Name Role Phone Rolando Moise MD Primary Care Provider [phone] Encounter Details Date Type Department Care Team (Late st Contact Info) Description 07/18/2018 11:05 AM EDT Ancillary Procedure [place] [phone] Lisa Alan MD [facility] [place] [address] Social History Tobacco Use Types Packs/Day Years [...] 1:30 PM EDT Laboratory Appointment Lab [address] [place] [address] 01/02/2024 3:00 PM EDT Office Visit [place] [address] Adam Costa MD [facility] NEPHROLOGY [place], [place] [phone] documented as of this encounter Procedures Procedure Name Priority Date/Time Associated Diagnosis Comments FILM LIBRARY STORAGE ONLY CT ABDOMEN AND PELVIS Routine 07/18/2018 11:01 AM EDT documented in this encounter Results * Film Library- Storage Only CT Abdomen & Pelvis (07/18/2018 11:01 AM EDT) Narrative [facility] - 07/18/2018 11:01 AM EDT This exam is auto-finalizing. It's purpose is for storage only. Lisa Infante MD [facility] FILM LIBRARY ORDERABLES Performing Organization Address City/State/[facility] Co de Phone Number [place], [place] documented in this encounter Visit Diagnoses Not on filedocumented in this encounter Care Teams Boatbuilder Supervisor Relationship Specialty Start Date End Date Rolando Moise MD [address] [place] [address] PCP - General Family Medicine 09/16/16 documented as of this encounter
--- OUTSIDE RECORDS SUMMARY | 2023-12-23 16:45 | XMS_ITS | Encounter Summary ---
Author Organization [facility] Address [facility] [place] [address] Care Team Providers Care Gauger Chief Name Role Phone Rolando Moise MD Primary Care Provider [phone] Encounter Details Date Type Department Care Team (Late st Contact Info) Description 12/16/2023 [place] [address] Nimisha Olmos Social History Tobacco [...] 1:30 PM EDT Laboratory Appointment Lab [address] [place] [address] 01/02/2024 3:00 PM EDT Office Visit Nephrology [place] [address] Adam Costa MD [facility] [place] [address] documented as of this encounter Visit Diagnoses Not on filedocumented in this encounter Care Teams Gauger Chief Relationship Specialty Start Date End Date Rolando Moise MD [address] [place] [address] PCP - General Family Medicine 09/16/16 documented as of this encounter
--- OUTSIDE RECORDS SUMMARY | 2023-12-23 16:45 | XMS_ITS | Encounter Summary ---
Author Organization [facility] Address [address] [place] [address] Care Team Providers Care Broker Assistant Name Role Phone Rolando Zacarias MD Primary Care Provider [phone] Encounter Details Date Type Department Care Team (Latest Contact Info) Description 10/28/2016 9:45 EDT - 10/28/2016 23:59 EDT Hospital Encounter [facility] [address] [place] [address] Unknown, Provider, Discharge Disposition: Home or Self Care Social History Tobacco Use Types Packs/Day Years Used Date Smoking Tobacco: Never Assessed Sex and Gender Information Value Date Recorded Sex Assigned at Not on file Gender Identity Not on file Sexual Orientation Not on file documented as of this encounter Discharge Disposition Disposition Code Departure Means Destination Home or Self Half-Way documented in this encounter Plan of Treatment Not on file documented as of this encounter Visit Diagnoses Not on filedocumented in this encounter Care Teams Broker Assistant Relationship Specialty Start Date End Date Rolando Zacarias MD [address] [place] [address] PCP - General 12/17/11 10/29/16 documented as of this encounter
--- OUTSIDE RECORDS SUMMARY | 2023-12-23 16:45 | XMS_ITS | Encounter Summary ---
Author Organization [facility] Address [facility] [place] [address] Care Team Providers Care Eligibility Examiner Name Role Phone Rolando Moise MD Primary Care Provider [phone] Encounter Details Date Type Department Care Team (Late st Contact Info) Description 09/01/2023 Orders [place] [phone] Estela Jesus RN Infrarenal abdominal aortic aneurysm [...] 1:30 PM EDT Laboratory Appointment Lab [address] [place] [address] 01/02/2024 3:00 PM EDT Office Visit Neph[place] [address] Adam Costa MD [facility] [place] [address] Scheduled Orders Name Type Priority Associated Diagnoses Orde r Schedule Creatinine Lab STAT Infrarenal abdominal aortic aneurysm (AAA) without rupture Expected: 09/01/2023, Expires: 08/31/2024 documented as of this encounter Visit Diagnoses Diagnosis Infrarenal abdominal aortic aneurysm (AAA) without rupture documented in this encounter Care Teams Eligibility Examiner Relationship Specialty Start Date End Date Rolando Moise MD [address] [place] [address] PCP - General Family Medicine 09/16/16 documented as of this encounter
--- OUTSIDE RECORDS SUMMARY | 2023-12-23 16:45 | XMS_ITS | Encounter Summary ---
Author [facility] [place] [address] Care Team Providers Care Helicopter Pilot Instructor Name Role Phone Rolando Moise MD Primary Care Provider [phone] Encounter Details Date Type Department Care Team (Late st Contact Info) Description 07/18/2022 Telephone Dermatology at [address] [place] [address] Padmini Maria LPN Social History [...] [facility] [place], [place] Moise's office faxes prescriptions to [phone]. [facility]. documented in this encounter Plan of Treatment Upcoming Encounters Date Type Department Care Team (Latest Contact Info) Description 01/02/2024 1:30 PM EDT Laboratory Appointment Lab [address] [place] [address] 01/02/2024 3:00 PM EDT Office Visit [place] [address] Adam Costa MD [facility] [place] [address] documented as of this encounter Visit Diagnoses Not on filedocumented in this encounter Care Teams Helicopter Pilot Instructor Relationship Specialty Start Date End Date Rolando Moise MD [address] [place] [address] PCP - General Family Medicine 09/16/16 documented as of this encounter
--- OUTSIDE RECORDS SUMMARY | 2023-12-23 16:45 | XMS_ITS | Encounter Summary ---
Author Organization [facility] Address [facility] [place] [address] Care Team Providers Care Ager Operator Name Role Phone Rolando Moise MD Primary Care Provider [phone] Encounter Details Date Type Department Care Team (Late st Contact Info) Description 07/19/2018 [place] [phone] Suzanna Krueger MD [facility] [place] [address] Social History Tobacco Use Types Packs/Day Years [...] ~1830 Referring Provider: Dr. Conner Patient Location: [facility] Reason for call: consultation, request for [...] 1:30 PM EDT Laboratory Appointment Lab [address] [place] [address] 01/02/2024 3:00 PM EDT Office Visit [place] [address] Adam Costa MD [facility] [place] [address] documented as of this encounter Visit Diagnoses Not on filedocumented in this encounter Care Teams Ager Operator Relationship Specialty Start Date End Date Rolando Moise MD [facility] [place] [address] PCP - General Family Medicine 09/16/16 documented as of this encounter
--- OUTSIDE RECORDS SUMMARY | 2023-12-23 16:45 | XMS_ITS | Encounter Summary ---
Author Organization [facility] Address [facility] [place] [address] Care Team Providers Care Supervisor Of Communications Name Role Phone Rolando Moise MD Primary Care Provider [phone] Reason for Visit * Auth/Cert Specialty Diagnoses / Procedures Referred By Teodoro t Referred To Contact Diagnoses Chest pain nstemi Referral ID Status Reason Start Date Expiration Date Visits Re quested Visits Authorized [id number] 1 1 Encounter Details Date Type Department Care Team (Latest Contact Info) Description 11/07/2020 6:46 AM EDT - 11/09/2020 3:30 PM EDT Hospital Encounter [place] [id number] Maximino Mcallister MD [facility] [address] Chest pain, unspecified type; Abdominal aortic aneurysm [...] note were not included. Patient Name: Cesar Thompson Patient Age: 84 y.o. Language: Northern Irish Race: White Ethnicity: Not nor Admit date: [...] please contact your inpatient physician through the [facility] . Issues afterhours and on weekends will [...] who have questions please contact the health health care administrator that requested your imaging first. Angiogram Chest Abdomen Pelvis w Contrast (Exam End: 11/07/2020 10:10 AM) Impression 1. 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 2. 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 No direct endoleak noted, however, increase in the greatest dimensions of the igiugig aneurysm sac of indeterminate etiology. The endograft is widely patent Thank you for letting us participate in the care of this patient. If you are a health care provider and have any questions regarding this report, please contact the number below. For patients who have questions please contact the health health care administrator that requested your imaging first. Lung Perfusion [...] who have questions please contact the health health care administrator that requested your imaging first. Electronically signed by: Migue Francisco MD, [facility] ([phone]), at 11/07/2020 4:42 PM Pending Studies and [...] gauge x 5/16 Syrg 1 Box by [facility]Non-Drug; Combo Route) route as needed. 1 Box [...] be able to get care/medications through the ID system if you apply for it. - [...] appointments: During 8am-5pm Friday through Friday call [phone] to speak with a nurse in the cardiology clinic All other times call [phone] and ask to speak to the performance reporter construction economist. What activities can you do, and what [...] the hospital? Maximino Mcallister MD - Attending Tree Girdler When do I see my doctors next? No future appointments. You will need to follow up with your PCP (Rolando Moise MD at [phone]) within 1 week of discharge - scheduled for FridayNovember 15 @3:40PM You will need to follow up with your Tree Girdler - FridayNovember 28 @1pm - You will go to the 3rd floor [facility] For questions regarding issues relating to your hospitalization on the Cardiology Service, please contact your inpatient physician through the [facility] [employer] [facility] [phone] and ask for pager #[phone]. Issues after hours and on weekends will be handled by the Cardiology staff on-call. General Instructions None Provider Contact Information: MD [address] / [place] [id number] Discharge References/Attachments Diabetes: Blood Sugar Emergencies (Northern Irish) Diabetes: Home Blood Sugar Test (Northern Irish) Diabetes: Single-Dose Insulin Shot (Northern Irish) Beta-Blockers (Northern Irish) Rhythm-Control Medicines: General Info (Northern Irish) documented in this encounter Discharge Instructions * [...] be able to get care/medications through the ID system if you apply for it. - [...] appointments: During 8am-5pm Friday through Friday call [phone] to speak with a nurse in the cardiology clinic All other times call [phone] and ask to speak to the performance reporter construction economist. What activities can you do, and what [...] the hospital? Maximino Mcallister MD - Attending Tree Girdler When do I see my doctors next? No future appointments. You will need to follow up with your PCP (Rolando Moise MD at [phone]) within 1 week of discharge - scheduled for FridayNovember 15 @3:40PM You will need to follow up with your Tree Girdler - FridayNovember 28 @1pm - You will go to the 3rd floor [facility] For questions regarding issues relating to your hospitalization on the Cardiology Service, please contact your inpatient physician through the [facility] [employer] [facility] [phone] and ask for pager #[phone]. Issues after hours and on weekends will be handled by the Cardiology staff on-call. * Attachments The following attachments cannot be sent through Care Everywhere. * Diabetes: Blood Sugar Emergencies (Northern Irish) * Diabetes: Home Blood Sugar Test (Northern Irish) * Diabetes: Single-Dose Insulin Shot (Northern Irish) * Beta-Blockers (Northern Irish) * Rhythm-Control Medicines: General Info (Northern Irish) documented in this encounter Medications at Time [...] gauge x 5/16 Syringe 1 Box by [facility]Non-Drug; Combo Route) route as needed. 90 Syringe [...] increase in the greatest dimensions of the igiugig aneurysm sac of indeterminate etiology. The endograft [...] medication assistance. His partner, Montse, came to [facility] this morning to meet with the team and understand the plan. We upped his insulin dosage yesterday with better flat sorting machine clerk coverage and his glucose control has been [...] Sang Pena Cota, GSOMIII Cardiology S2 (Pager [phone]) Associated attestation - Maximino Mcallister MD - [...] PCP: Rolando Moise MD PCP phone number: [phone] Date of Admission: 11/07/2020 ( Hospital Day 2 days ) Attending:Maximino Mcallister MD ID: Cesar Thompson is a 84 y.o. male w/ PMH of CAD??c/b NSTEMI s/p MINNIE to mLAD and oDiag1 (02/2017), Ischemic myopathy (LV EF 35% after FL to 60% 09/2017),??AAA s/p??endovascular??repair??(04/2011) and DMII, on [...] to set up home insulin. This AM: Alma well, no recurrence of chest pain -- [...] Telemetry: Normal Sinus rhythm 50-70's (A fib [id number]) Intake/Output Summary (Last 24 hours) at 11/09/2020 [...] Gas) No results found for: PHART, PO2ART, [id number], [id number] Microbiology: Microbiology Results (Last 30 days) No [...] who have questions please contact the health health care administrator that requested your imaging first. Angiogram Chest Abdomen Pelvis w Contrast (Exam End: 11/07/2020 10:10 AM) Impression 1. 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 2. 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 No direct endoleak noted, however, increase in the greatest dimensions of the igiugig aneurysm sac of indeterminate etiology. The endograft is widely patent Thank you for letting us participate in the care of this patient. If you are a health care provider and have any questions regarding this report, please contact the number below. For patients who have questions please contact the health health care administrator that requested your imaging first. Lung Perfusion [...] who have questions please contact the health health care administrator that requested your imaging first. Electronically signed by: Migue Francisco MD, [facility] ([phone]), at 11/07/2020 4:42 PM Medications Scheduled Meds: [...] oDiag1 (02/2017), ICM (LV EF 35% after FL to 60% 09/2017),??AAA s/p??endovascular??repair??(04/2011) on HD# 2 [...] 02/2017), ischemic cardiomyopathy (LV EF 35% after FL to 60% 09/2017), AAA s/p endovascular repair [...] (11/07/20 1730) ??? AMIOdarone 0.5 mg/min (11/08/20 3342) Scheduled Meds: ??? sodium chloride 0.9 % [...] increase in the greatest dimensions of the igiugig aneurysm sac of indeterminate etiology. The endograft [...] 02/2017), ischemic cardiomyopathy (LV EF 35% after FL to 60% 09/2017), AAA s/p endovascular repair [...] ?? Sang Cota, GSOMIII Cardiology S2 (Pager [phone]) * Adam Fuchs MD - 11/08/2020 5:27 AM EDT Images from the original note were not included. Inpatient Cardiology Progress Note Patient info: Name: Cesar Thompson : 1935 PCP: Rolando Moise MD PCP phone number: [phone] Date of Admission: 11/07/2020 ( Hospital Day 1 day ) Attending:Maximino Mcallister MD ID: Cesar Thompson is a 84 y.o. male w/ PMH of CAD??c/b NSTEMI s/p MINNIE to mLAD and oDiag1 (02/2017), Ischemic myopathy (LV EF 35% after FL to 60% 09/2017),??AAA s/p??endovascular??repair??(04/2011 on Hospital Day1 for acute tearing chest pain to back. 24 Hour Events/Subjective: Yesterday: CT aorta ruled out dissection V/Q scan no perfusion defects Started on heparin drip + DAPT Converted to sinus from a fib on diltiazem drip Started on amiodarone to keep in sinus -- Overnight: -- This AM:Alma well, no recurrence of chest pain -- [...] Gas) No results found for: PHART, PO2ART, [id number], [id number] Microbiology: Microbiology Results (Last 30 days) No [...] who have questions please contact the health health care administrator that requested your imaging first. Angiogram Chest Abdomen Pelvis w Contrast (Exam End: 11/07/2020 10:10 AM) Impression 1. 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 2. 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 No direct endoleak noted, however, increase in the greatest dimensions of the igiugig aneurysm sac of indeterminate etiology. The endograft is widely patent Thank you for letting us participate in the care of this patient. If you are a health care provider and have any questions regarding this report, please contact the number below. For patients who have questions please contact the health health care administrator that requested your imaging first. Lung Perfusion [...] who have questions please contact the health health care administrator that requested your imaging first. Electronically signed by: Migue Francisco MD, [facility] ([phone]), at 11/07/2020 4:42 PM Medications Scheduled Meds: [...] oDiag1 (02/2017), ICM (LV EF 35% after FL to 60% 09/2017),??AAA s/p??endovascular??repair??(04/2011) on HD# 2 [...] PCP: Rolando Moise MD PCP phone number: [phone] Date of Admission: 11/07/2020 ( Hospital Day 0 days ) Attending:Maximino Mcallister MD ID: Cesar Thompson is a 84 y.o. male w/ PMH of CAD c/b NSTEMI s/p MINNIE to mLAD and oDiag1 (02/2017),ICM (LV EF 35% after FL to 60% 09/2017), AAA s/p endovascular repair [...] [facility], [facility] ??? PRO AAA REPAIR, 1ST VESSEL, EXTENSION PROSTH 04/12/2011 @EVG-PLACEMENT, CUFF OR EXT. AORTIC OR ILIAC ANEURYSM REPAIR, GORE performed by ACACIA BRYANT at [facility] OR ??? PRO AAA REPAIR, MODULR BIFUR PROSTH, 2-DOCK 04/12/2011 @EVG, AAA, W\ MODULAR BIFURCATED PROS. W\ 2 DOCKING LIMBS performed by ACACIA BRYANT at [facility] OR ??? PRO AAA REPR, EXPOSE FEMORAL ART, GROIN INCIS 04/12/2011 @EXPOSURE, OPEN FEM. ARTERY FOR ENDOVASCULAR PROSTHESIS, GROIN-FABIANA performed by ACACIA BRYANT at [facility] OR ? ? PRO ENDOVASC REPAIR INFRARENAL AAA/DISSECTION S&I 04/12/2011 @EVG, INFRARENAL AAA OR DISSECTION, S&I performed by ACACIA BRYANT at [facility] OR Family History No family [...] Gas) No results found for: PHART, PO2ART, [id number], [id number] Microbiology: Microbiology Results (Last 30 days) No [...] who have questions please contact the health health care administrator that requested your imaging first. Angiogram Chest Abdomen Pelvis w Contrast (Exam End: 11/07/2020 10:10 AM) Impression 1. 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 2. 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 No direct endoleak noted, however, increase in the greatest dimensions of the igiugig aneurysm sac of indeterminate etiology. The endograft is widely patent Thank you for letting us participate in the care of this patient. If you are a health care provider and have any questions regarding this report, please contact the number below. For patients who have questions please contact the health health care administrator that requested your imaging first. Medications Scheduled [...] and oDiag1 (02/2017), ICM(LV EF 35% after FL to 60% 09/2017), AAA s/p endovascular repair [...] Insurance: AARP SUPPLEMENT Prescription Coverage: Yes - Constant Contact Part D Preferred Pharmacy: [id number] - [place], [place] - [address] [place] [address] AT [address] [facility] [address] [place] [phone] This plan was formulated with input from patient, and team. All are in agreement with plan. Penny Bee RN, MSN Machinist Linotype - Cardiology Office of Care Management Pager: [phone] * Care Management - Penny Bee RN [...] Insurance: AARP SUPPLEMENT Prescription Coverage: Yes - [facility] [employer] Preferred Pharmacy: [id number] [place], [place] - [address] [place] [address] AT [address] [facility] [address] [phone] Plan for discharge is: Home w/o Services [...] at 11:00 PM Penny Bee RN, MSN Machinist Linotype - Cardiology Office of Care Management Pager: [phone] * Initial Assessments - Penelope Castle RN [...] DPOA, however, none are on file at [facility]) If AD's have not been completed pts adult children would be DPOA. He has s/o , Montse who is emergency contact, would be surrogate decision maker per [place] surrogate decision making law. (Only good for 90 days) Any patient receiving care at [facility] must abide by [place] law. The hierarchy for surrogate decision making [...] (i) The agent with financial power of graduate teaching assistant or a conservator appointed in accordance with [...] Home Address confirmed as: [address] [facility] [address] Social & Family Supports: All names listed below confirmed with patient as current and correct Extended Emergency Contact Information Primary Emergency Contact: Montse De Anda Address: [address] [place], [place] [address] [place] [address] Relation: Friend Current Care Provided by: self [...] AARP SUPPLEMENT Prescription Coverage: Yes Preferred Pharmacy: [id number] [place], [place] - [address] [place] [address] AT [address] [facility] [address] [facility] [phone] [place] Status: Patient is a : Yes Are you enrolled in the VA for your healthcare?: No Primary Care Provider: Rolando Moise MD [phone] Patient/Caregiver Goals of Treatment: dc to home [...] of care planning. Penelope Castle RN Ext [phone] Pager [phone] * Plan of Care - Marilyn Condon [...] 1:30 PM EDT Laboratory Appointment Lab [address] [place] [address] 01/02/2024 3:00 PM EDT Office Visit Ne[place] [address] Adam Costa MD [facility] [place] [address] documented as of this encounter Procedures Procedure [...] Glucose, POC 198 65 - 199 mg/dL [facility] Comment: Supplemental ranges: <140 mg/dL before meals <180 mg/dL all other times of the day Blood 11/09/2020 11:2 7 AM EDT 11/09/2020 11:27 AM EDT Maximino Mcallister MD POINT OF CARE TEST ORDERABLES [facility] [place] [address] * POCT Glucose (11/09/2020 7:44 AM EDT) Glucose, POC 183 65 - 199 mg/dL [facility] Comment: Supplemental ranges: <140 mg/dL before meals <180 mg/dL all other times of the day Blood 11/09/2020 7:44 AM EDT 11/09/2020 7:44 AM EDT Maximino Mcallister MD POINT OF CARE TEST ORDERABLES [facility] [place] [address] * (ABNORMAL) BMP w/fasting Glucose (11/09/2020 6:57 AM EDT) Glucose Fasting 196(H) 65 - 99 mg/dL [facility] Comment: ?Fasting* Glucose Interpretive Criteria [...] of Diabetes Mellitus, Position Statement from the [place] [employer]. ??Diabetes Care, Volume 33, Supplement 1, May 2009 Blood Urea Nitrogen 26(H) 10 - 20 mg/dL [facility] Creatinine 1.64(H) 0.80 - 1.50 mg/dL [facility] Sodium 136 135 - 145 mmol/L [facility] Potassium 4.2 3.5 - 5.0 mmol/L [facility] Comment: Please note: ??Patients with WBC >100,000 may have falsely elevated Potassium levels. ??For accurate Potassium quantification in these patients send serum separator tube (gold top) for subsequent determinations. ??Contact the Clinical Chemistry Laboratory if there are any questions. Chloride 102 98 - 107 mmol/L [facility] Carbon Dioxide 23 22 - 31 mmol/L [facility] Anion Gap 11 5 - 15 mmol/L [facility] Calcium 8.8 8.5 - 10.5 mg/dL [facility] Est Glomerular Filtration Rate 38(L) >=60 mL/min/1. 73 m?? [facility] Comment: This patient? s estimated [...] MD CHEMISTRY ORDERABL ES Performing Organization Address City/[facility]/ZIP Co de Phone Number [facility] [place] [address] * POCT Glucose (11/09/2020 3:09 AM EDT) Glucose, POC 174 65 - 199 mg/dL [facility] Comment: Supplemental ranges: <140 mg/dL before meals <180 mg/dL all other times of the day Blood 11/09/2020 3:09 AM EDT 11/09/2020 3:09 AM EDT Maximino Mcallister MD POINT OF CARE TEST ORDERABLES [facility] [place] [address] * POCT Glucose (11/09/2020 12:44 AM EDT) Glucose, POC 152 65 - 199 mg/dL [facility] Comment: Supplemental ranges: <140 mg/dL before meals <180 mg/dL all other times of the day Blood 11/09/2020 12:4 4 AM EDT 11/09/2020 12:44 AM EDT Maximino Mcallister MD POINT OF CARE TEST ORDERABLES Performing Organization Address [facility] Co de Phone Number [facility] [place] [address] * (ABNORMAL) POCT Glucose (11/08/2020 8:27 PM EDT) Glucose, POC 225(H) 65 - 199 mg/dL [facility] Comment: Supplemental ranges: <140 mg/dL before meals <180 mg/dL all other times of the day Blood 11/08/2020 8:27 PM EDT 11/08/2020 8:27 PM EDT Maximino Mcallister MD POINT OF CARE TEST ORDERABLES Performing Organization Address [facility] Co de Phone Number [facility] [place] [address] * Electrolytes panel (11/08/2020 5:07 PM EDT) Pathologist [facility] Sodium 137 135 - 145 mmol/L [facility] Potassium 4.4 3.5 - 5.0 mmol/L [facility] Comment: Please note: ??Patients with WBC >100,000 may have falsely elevated Potassium levels. ??For accurate Potassium quantification in these patients send serum separator tube (gold top) for subsequent determinations. ??Contact the Clinical Chemistry Laboratory if there are any questions. Chloride 100 98 - 107 mmol/L [facility] Carbon Dioxide 25 22 - 31 mmol/L [facility] Anion Gap 12 5 - 15 mmol/L [facility] Blood 11/08/2020 5:07 PM EDT 11/08/2020 5:19 PM EDT Narrative Resulting Agency Comment Spec In Lab Maximino Mcallister MD CHEMISTRY ORDERABL ES Performing Organization Address [facility] Co de Phone Number [facility] [place] [address] * POCT Glucose (11/08/2020 5:06 PM EDT) Glucose, POC 161 65 - 199 mg/dL [facility] Comment: Supplemental ranges: <140 mg/dL before meals <180 mg/dL all other times of the day Blood 11/08/2020 5:06 PM EDT 11/08/2020 5:06 PM EDT Maximino Mcallister MD POINT OF CARE TEST ORDERABLES Performing Organization Address [facility] Co de Phone Number [facility] [place] [address] * (ABNORMAL) POCT Glucose (11/08/2020 2:50 PM EDT) Glucose, POC 265(H) 65 - 199 mg/dL [facility] Comment: Supplemental ranges: <140 mg/dL before meals <180 mg/dL all other times of the day Blood 11/08/2020 2:50 PM EDT 11/08/2020 2:50 PM EDT Maximino Mcallister MD POINT OF CARE TEST ORDERABLES Performing Organization Address [facility] Co de Phone Number [facility] [place] [address] * (ABNORMAL) POCT Glucose (11/08/2020 12:03 PM EDT) Glucose, POC 305(H) 65 - 199 mg/dL [facility] Comment: Supplemental ranges: <140 mg/dL before meals <180 mg/dL all other times of the day Blood 11/08/2020 12:0 3 PM EDT 11/08/2020 12:03 PM EDT Maximino Mcallister MD POINT OF CARE TEST ORDERABLES Performing Organization Address [facility] Co de Phone Number [facility] [place] [address] * (ABNORMAL) POCT Glucose (11/08/2020 10:16 AM EDT) Glucose, POC 302(H) 65 - 199 mg/dL [facility] Comment: Supplemental ranges: <140 mg/dL before meals <180 mg/dL all other times of the day Blood 11/08/2020 10:1 6 AM EDT 11/08/2020 10:16 AM EDT Maximino Mcallister MD POINT OF CARE TEST ORDERABLES Performing Organization Address [facility] Co de Phone Number [facility] [place] [address] * (ABNORMAL) POCT Glucose (11/08/2020 7:40 AM EDT) Glucose, POC 255(H) 65 - 199 mg/dL [facility] Comment: Supplemental ranges: <140 mg/dL before meals <180 mg/dL all other times of the day Blood 11/08/2020 7:40 AM EDT 11/08/2020 7:40 AM EDT Maximino Mcallister MD POINT OF CARE TEST ORDERABLES Performing Organization Address [facility] Co de Phone Number [facility] [address] * (ABNORMAL) POCT Glucose (11/08/2020 5:03 AM EDT) Glucose, POC 236(H) 65 - 199 mg/dL [facility] Comment: Supplemental ranges: <140 mg/dL before meals <180 mg/dL all other times of the day Blood 11/08/2020 5:03 AM EDT 11/08/2020 5:03 AM EDT Maximino Mcallister MD POINT OF CARE TEST ORDERABLES Performing Organization Address City/[facility]/ZIP Co de Phone Number [facility] [address] * (ABNORMAL) Differential, Automated (11/08/2020 12:23 AM EDT) Neutrophil % 70.8 % [facility] Neutrophil Absolute 10.06(H) 1.70 - 6.10 x10(3)/ L [facility] Lymph % 17.5 % [facility] Lymphocytes Abs 2.5 0.9 - 3.2 x10(3)/ L [facility] Monocyte % 9.1 % [facility] Monocyte Abs 1.3(H) 0.3 - 0.9 x10(3)/ L [facility] Eos % 1.7 % [facility] Eosinophils Abs 0.2 0.0 - 0.4 x10(3)/[facility] Basophil % 0.5 % [facility] Baso Absolute 0.1 0.0 - 0.1 x10(3)/ L [facility] Immature Gran % 0.40 % [facility] Comment: Immature granulocytes(IG's)percentage and absolute count will include metamyelocytes, myelocytes, and promyelocytes. Blood smears from CBCs yielding IG's will be scanned manually for concordance. If this scan disagrees with the automated IG or if promyelocytes are noted, a manual differential will be performed. Immature Gran Absolute 0.05(H) 0.00 - 0.04 x10(3)/ L [facility] Blood 11/08/2020 12:2 3 AM EDT 11/08/2020 12:27 AM EDT Narrative Resulting Agency Comment Spec In Lab Adam Fuchs MD HEMATOLOGY ORDERABLE S Performing Organization Address City/[facility]/ZIP Co de Phone Number [facility] [place] [address] * (ABNORMAL) Hemogram (11/08/2020 12:23 AM EDT) White Blood Cell 14.2(H) 4.0 - 9.5 x10(3)/[facility] Red Blood Cell 4.59 4.58 - 5.54 x10(6)/[facility] Hemoglobin 14.2 13.7 - 16.5 gm/dL [facility] Hematocrit 42.2 40.5 - 48.5 % [facility] Mean Cell Volume 91.9 82.9 - 93.1 fL [facility] Mean Cell Hemoglobin 30.9 27.5 - 32.1 pg [facility] Mean Cell Hemoglobin Concentration 33.6 32.0 - 35.7 gm/dL [facility] Platelet 175 145 - 357 x10(3)/[facility] RDW Standard Deviation 39.8 36.0 - 45.0 [facility] RDW coefficient of variation 11.9 11.4 - 13.8 % [facility] Mean Platelet Volume 11.1 7.6 - 12.9 [facility] NRBC% auto 0.0 % [facility] NRBC Absolute 0.000 0.000 - 0.000 x10(3)/[facility] Blood 11/08/2020 12:2 3 AM EDT 11/08/2020 12:27 AM EDT Narrative Resulting Agency Comment Spec In Lab Adam Fuchs MD HEMATOLOGY ORDERABLE S [facility] [place] [address] * (ABNORMAL) BMP w/fasting Glucose (11/08/2020 12:23 AM EDT) Glucose Fasting 254(H) 65 - 99 mg/dL [facility] Comment: ?Fasting* Glucose Interpretive Criteria [...] of Diabetes Mellitus, Position Statement from the [place] [employer]. ??Diabetes Care, Volume 33, Supplement 1, May 2009 Blood Urea Nitrogen 23(H) 10 - 20 mg/dL [facility] Creatinine 1.80(H) 0.80 - 1.50 mg/dL [facility] Sodium 136 135 - 145 mmol/L [facility] Potassium 4.5 3.5 - 5.0 mmol/L [facility] Comment: Please note: ??Patients with WBC >100,000 may have falsely elevated Potassium levels. ??For accurate Potassium quantification in these patients send serum separator tube (gold top) for subsequent determinations. ??Contact the Clinical Chemistry Laboratory if there are any questions. Chloride 102 98 - 107 mmol/L [facility] Carbon Dioxide 22 22 - 31 mmol/L [facility] Anion Gap 12 5 - 15 mmol/L [facility] Calcium 8.8 8.5 - 10.5 mg/dL [facility] Est Glomerular Filtration Rate 34(L) >=60 mL/min/1. 73 m?? [facility] Comment: This patient? s estimated [...] MD CHEMISTRY ORDERABL ES Performing Organization Address [facility] de Phone Number [facility] [place] [address] * Heparin (unfractionated) Level (11/08/2020 12:23 AM EDT) UF Heparin 0.42 IU/mL [facility] Comment: Guidelines for therapeutic unfractionated heparin [...] MD HEMATOLOGY ORDERAB LES Performing Organization Address [facility] Co de Phone Number [facility] [place] [address] * (ABNORMAL) POCT Glucose (11/07/2020 11:47 PM EDT) Glucose, POC 241(H) 65 - 199 mg/dL [facility] Comment: Supplemental ranges: <140 mg/dL before meals <180 mg/dL all other times of the day Blood 11/07/2020 11:4 7 PM EDT 11/07/2020 11:47 PM EDT Maximino Mcallister MD POINT OF CARE TEST ORDERABLES Performing Organization Address [facility] de Phone Number [facility] [place] [address] * (ABNORMAL) POCT Glucose (11/07/2020 8:24 PM EDT) Glucose, POC 304(H) 65 - 199 mg/dL [facility] Comment: Supplemental ranges: <140 mg/dL before meals <180 mg/dL all other times of the day Blood 11/07/2020 8:24 PM EDT 11/07/2020 8:24 PM EDT Maximino Mcallister MD POINT OF CARE TEST ORDERABLES Performing Organization Address [facility] de Phone Number [facility] [place] [address] * Heparin (unfractionated) Level (11/07/2020 6:36 PM EDT) UF Heparin 0.38 IU/mL [facility] Comment: Guidelines for therapeutic unfractionated heparin [...] Lab Maximino Mcallister MD HEMATOLOGY ORDERAB LES [facility] [place] [address] * (ABNORMAL) Troponin (11/07/2020 5:07 PM EDT) Troponin-T 0.02(H) 0.00 - 0.00 ng/mL [facility] Comment: The 99th percentile for Troponin T is less than 0.01 ng/mL, any detectable cTnT concentration using this assay should be considered elevated. According to the third universal definition of myocardial infarction the following criteria with a clinical presentation consistent with acute myocardial ischemia meets the diagnosis for a myocardial infarction ([place]). Detection of a rise and/or fall of cTnT, with at least one value greater than the 99th percentile (> or = 0.01) and with at least one of the following ?? Symptoms of ischemia ?? New or presumed new significant JK-tozlrca-T wave (ST-T) changes or new left bundle [...] additional sample may be indicated. Reference: Third [place] Definition of Myocardial Infarction. Journal of the [place] [employer] 2012;60:1581-98 Blood 11/07/2020 5:07 PM EDT 11/07/2020 5:16 PM EDT Narrative Resulting Agency Comment Spec In Lab Maximino Mcallister MD CHEMISTRY ORDERABL ES Performing Organization Address [facility] Co de Phone Number [facility] [place] [address] * (ABNORMAL) Electrolytes panel (11/07/2020 5:07 PM EDT) Sodium 135 135 - 145 mmol/L [facility] Potassium 4.9 3.5 - 5.0 mmol/L [facility] Comment: Please note: ??Patients with WBC >100,000 may have falsely elevated Potassium levels. ??For accurate Potassium quantification in these patients send serum separator tube (gold top) for subsequent determinations. ??Contact the Clinical Chemistry Laboratory if there are any questions. Chloride 104 98 - 107 mmol/L [facility] Carbon Dioxide 20(L) 22 - 31 mmol/L [facility] Anion Gap 11 5 - 15 mmol/L [facility] Blood 11/07/2020 5:07 PM EDT 11/07/2020 5:16 PM EDT Narrative Resulting Agency Comment Spec In Lab Maximino Mcallister MD CHEMISTRY ORDERABL ES Performing Organization Address [facility] Co de Phone Number [facility] [place] [address] * (ABNORMAL) POCT Glucose (11/07/2020 5:05 PM EDT) Glucose, POC 339(H) 65 - 199 mg/dL [facility] Comment: Supplemental ranges: <140 mg/dL before meals <180 mg/dL all other times of the day Blood 11/07/2020 5:05 PM EDT 11/07/2020 5:05 PM EDT Maximino Mcallister MD POINT OF CARE TEST ORDERABLES Performing Organization Address [facility]/ZIP [place] [address] * NM Lung Perfusion Planar (11/07/2020 4:14 [...] who have questions please contact the health health care administrator that requested your imaging first. ? Electronically signed by: Migue Francisco MD, [facility] ([phone]), at 11/09/2020 1:16 PM --------ORIGINAL REPORT -------- [...] who have questions please contact the health health care administrator that requested your imaging first. ? Electronically signed by: Migue Francisco MD, [facility] ([phone]), at 11/07/2020 4:42 PM Addendum by Migue [...] who have questions please contact the health health care administrator that requested your imaging first. ? Electronically signed by: Migue Francisco MD, [facility] ([phone]), at 11/07/2020 4:42 PM Impressions 11/07/2020 4:42 [...] who have questions please contact the health health care administrator that requested your imaging first. ? Electronically signed by: Migue Francisco MD, [facility] ([phone]), at 11/07/2020 4:42 PM Narrative 11/07/2020 4:42 [...] patients who have questions please contactthe health health care administrator that requested your imaging first. Electronically signed by: Migue Francisco MD, [facility]([phone]), at 11/07/2020 4:42 PM Maximino Mcallitser MD [facility] ORDERABLES * ECHO COMPLETE (11/07/2020 11:24 AM EDT) Pathologist [facility] EF 50 HEARTLAB SYSTEM Anatomical Region Laterality Modality Other 11/07/2020 Narrative 11/07/2020 12:13 PM EDT Procedure: ?Transthoracic Echocardiogram Patient: ?EDD LEIVA D ?(Age): 1935(84y) Med Rec#: ? [id number] ?Sex: ?M ? Site Loc: ? [facility] ?Ht / Wt: ??178(cm)/88(kg) Pt. Loc: ?Adult Floor ? BSA: ?2.06 Study Date: ?? 11/07/2020 ?Pt. Type: Inpatient Tape: ? Referring: Maximino Mcallister ([id number]) Referring: [place] Reading: Eladio Willett ([id number]) Transformation Lead: Moisés Estrella RDCS Diagnosis: *Chest pain, unspecified [...] ? Mid-Inferior ?Normal ? Mid-Inferoseptal ?Normal ? [place]-Septal ? Normal ? [place]-Anterior ? Normal ? [place]-Lateral ?Normal ? [place]-Inferior ? Normal ? [place]-Tip ?Normal ? This report has been electronically signed by: Eladio Willett M.D. ? 11/07/2020 12:13:06 Images reviewed and interpretation verified [facility] Cardiac Ultrasound Laboratory Procedure Note Eladio Willett MD - 11/07/2020 Procedure: Transthoracic Echocardiogram Patient: EDD Hatch (Age): 1935(84y) Med Rec#: [id number] Sex: M [place] [facility] Ht / Wt: 178(cm)/88(kg) Pt. Loc: Adult Floor BSA: 2.06 Study Date: 11/07/2020 Pt. Type: Inpatient Tape: Referring: Maximino Mcallister ([id number]) Referring: [place] Reading: Eladio Willett ([id number]) Transformation Lead: Moisés Estrella [facility] Diagnosis: *Chest pain, unspecified (R07.9) *Abdominal [...] Normal Mid-Posterolateral Normal Mid-Inferior Normal Mid-Inferoseptal Normal [place]-Septal Normal [place]-Anterior Normal [place]-Lateral Normal [place]-Inferior Normal [place]-Tip Normal This report has been electronically signed by: Eladio Gael Willett M.D. 11/07/2020 12:13:06 Images reviewed and interpretation verified [facility] Cardiac Ultrasound Laboratory Maximino Mcallister MD ECHO ORDERABLES * (ABNORMAL) Troponin (11/07/2020 11:18 AM EDT) Troponin-T 0.02(H) 0.00 - 0.00 ng/mL [facility] Comment: The 99th percentile for Troponin T is less than 0.01 ng/mL, any detectable cTnT concentration using this assay should be considered elevated. According to the third universal definition of myocardial infarction the following criteria with a clinical presentation consistent with acute myocardial ischemia meets the diagnosis for a myocardial infarction ([place]). Detection of a rise and/or fall of cTnT, with at least one value greater than the 99th percentile (> or = 0.01) and with at least one of the following ?? Symptoms of ischemia ?? New or presumed new significant TF-ftkaqwj-K wave (ST-T) changes or new left bundle [...] additional sample may be indicated. Reference: Third [place] Definition of Myocardial Infarction. Journal of the [place] [employer] 2012;60:1581-98 Blood 11/07/2020 11:1 8 AM EDT 11/07/2020 12:02 PM EDT Narrative Resulting Agency Comment Spec In Lab Maximino Mcallister MD CHEMISTRY ORDERABL ES Performing Organization Address [facility] Co de Phone Number [facility] [place] [address] * EKG 12 Lead (11/07/2020 11:14 AM EDT) Ventricular rate 108 BPM MUSE SYSTEM QRS Duration 80 ms MUSE SYSTEM Q-T Interval 354 ms MUSE SYSTEM QTC Calculated (Bezet) 474 ms MUSE SYSTEM Calculated R [place] 43 degrees MUSE SYSTEM Calculated T [place] 101 degrees MUSE SYSTEM INTERPRETATION Atrial fibrillation with rapid ventricular response Nonspecific ST and T wave abnormality Abnormal ECG When compared with ECG of 10-MAR-2017 14:33, Atrial fibrillation has replaced Sinus rhythm Vent. 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 The endograft is widely patent Thank you for letting us participate in the care of this patient. ??If you are a health care provider and have any questions regarding this report, please contact the number below. ??For patients who have questions please contact the health health care administrator that requested your imaging first. ? Narrative [...] arteries. No endoleak. The greatest dimensions of igiugig aneurysm sac have increased, measuring 7.2 x [...] intravenous administration of contrast. 75 cc of [id number]. Maximum intensity projection (MIP) were reformatted. 3-D [...] arteries. No endoleak. The greatest dimensions of igiugig aneurysmsac have increased, measuring 7.2 x 8.5 [...] however, increase in the greatestdimensions of the igiugig aneurysm sac of indeterminate etiology. The endograft iswidely patent Thank you for letting us participate in the care of this patient. If youare a health care provider and have any questions regarding this report,please contact the number below. For patients who have questions please contactthe health health care administrator that requested your imaging first. Maximino Mcallister MD IMG CT ORDERABLES * (ABNORMAL) Hemoglobin A1c (11/07/2020 8:50 AM EDT) Hemoglobin A1c 11.3(H) 4.3 - 5.6 % [facility] Comment: Reference Range: 4.3 - [...] Mellitus, Diabetes Care 2013; 36: Suppl. 1, P67-80 Estimated Average Glucose See note mg/dL [facility] Comment: Estimated Average Glucose not [...] into estimated average glucose values. ??Diabetes Care 2008:31(8):6419-2180. Blood Venous Draw / Unknown 11/07/2020 8:50 AM EDT 11/07/2020 11:00 AM EDT Narrative Resulting Agency Comment Spec In Lab Evan Sinclair MD CHEMISTRY ORDERABLES Performing Organization Address City/State/[facility] Co de Phone Number [facility] [place] [address] * (ABNORMAL) Differential, Automated (11/07/2020 8:50 AM EDT) Neutrophil % 76.7 % [facility] Neutrophil Absolute 10.62(H) 1.70 - 6.10 x10(3)/mc L [facility] Lymph % 13.1 % [facility] Lymphocytes Abs 1.8 0.9 - 3.2 x10(3)/mc L [facility] Monocyte % 7.0 % [facility] Monocyte Abs 1.0(H) 0.3 - 0.9 x10(3)/mc L [facility] Eos % 2.2 % [facility] Eosinophils Abs 0.3 0.0 - 0.4 x10(3)/mc L [facility] Basophil % 0.6 % [facility] Baso Absolute 0.1 0.0 - 0.1 x10(3)/mc L [facility] Immature Gran % 0.40 % [facility] Comment: Immature granulocytes(IG's)percentage and absolute count will include metamyelocytes, myelocytes, and promyelocytes. Blood smears from CBCs yielding IG's will be scanned manually for concordance. If this scan disagrees with the automated IG or if promyelocytes are noted, a manual differential will be performed. Immature Gran Absolute 0.05(H) 0.00 - 0.04 x10(3)/mc L [facility] Blood 11/07/2020 8:50 AM EDT 11/07/2020 9:19 AM EDT Narrative Resulting Agency Comment Spec In Lab Evan Sinclair MD HEMATOLOGY ORDERABLE S [facility] [place] [address] * (ABNORMAL) Hemogram (11/07/2020 8:50 AM EDT) White Blood Cell 13.8(H) 4.0 - 9.5 x10(3)/mc L [facility] Red Blood Cell 4.87 4.58 - 5.54 x10(6)/mc L [facility] Hemoglobin 15.0 13.7 - 16.5 gm/dL [facility] Hematocrit 44.9 40.5 - 48.5 % [facility] Mean Cell Volume 92.2 82.9 - 93.1 fL [facility] Mean Cell Hemoglobin 30.8 27.5 - 32.1 pg [facility] Mean Cell Hemoglobin Concentration 33.4 32.0 - 35.7 gm/dL [facility] Platelet 171 145 - 357 x10(3)/mc L [facility] RDW Standard Deviation 40.0 36.0 - 45.0 fL [facility] RDW coefficient of variation 11.8 11.4 - 13.8 % [facility] Mean Platelet Volume 11.5 7.6 - 12.9 fL [facility] NRBC% auto 0.0 % [facility] NRBC Absolute 0.000 0.000 - 0.000 x10(3)/mc L [facility] Blood 11/07/2020 8:50 AM EDT 11/07/2020 9:19 AM EDT Narrative Resulting Agency Comment Spec In Lab Evan Sinclair MD HEMATOLOGY ORDERABLE S Performing Organization Address [facility] Co de Phone Number [facility] [place] [address] * (ABNORMAL) D-Dimer, Quantitative (11/07/2020 8:50 AM EDT) Pathologist [facility] D-Dimer 4,219(H) 0 - 500 FEU ng/ml [facility] Comment: The D-Dimer assay is used [...] MD HEMATOLOGY ORDERAB LES Performing Organization Address [facility] de Phone Number [facility] [place] [address] * APTT (11/07/2020 8:50 AM EDT) Pathologist [facility] Partial Thromboplastin Time 26 25 - 37 sec [facility] Comment: The PTT is NOT appropriate for heparin monitoring. Use the Anti-Xa level for heparin monitoring (HEP UFH) or LMWH monitoring (HEP LMW). A PTT less than 37 seconds generally indicates adequate hemostasis. Blood 11/07/2020 8:50 AM EDT 11/07/2020 9:19 AM EDT Narrative Resulting Agency Comment Spec In Lab Maximino Mcallister MD HEMATOLOGY ORDERAB LES Performing Organization Address [facility] de Phone Number [facility] [place] [address] * Prothrombin Time (11/07/2020 8:50 AM EDT) Prothrombin Time 10.5 9.4 - 12.5 sec [facility] International Normalization Ratio 0.9 [facility] Comment: An INR <2.0 indicates [...] MD HEMATOLOGY ORDERAB LES Performing Organization Address [facility] de Phone Number [facility] [place] [address] * Hepatic Function Panel (11/07/2020 8:50 AM EDT) Pathologist [facility] Protein, Total 6.7 6.1 - 8.0 gm/dL [facility] Albumin 3.9 3.2 - 5.2 gm/dL [facility] Aspartate Aminotransferase 29 0 - 39 unit/L [facility] Alanine Aminotransferase 46 0 - 55 unit/L [facility] Alkaline Phosphatase 118 40 - 130 unit/L [facility] Bilirubin, Total 0.8 0.2 - 1.3 mg/dL [facility] Bilirubin, Direct 0.2 0.0 - 0.3 mg/dL [facility] Blood 11/07/2020 8:50 AM EDT 11/07/2020 9:19 AM EDT Narrative Resulting Agency Comment Spec In Lab Maximino Mcallister MD CHEMISTRY ORDERABL ES Performing Organization Address [facility]/ZIP Co de Phone Number [facility] [place] [address] * (ABNORMAL) pro-Brain Natriuretic Peptide (11/07/2020 8:50 AM EDT) NT-proBNP 488(H) <=449 pg/mL [facility] Blood 11/07/2020 8:50 AM EDT 11/07/2020 9:19 AM EDT Narrative Resulting Agency Comment Spec In Lab Maximino Mcallister MD CHEMISTRY ORDERABL ES Performing Organization Address [facility] Co de Phone Number [facility] [place] [address] * TSH (11/07/2020 8:50 AM EDT) Thyroid Stimulating Hormone 1.38 0.27 - 4.20 mcIU/mL [facility] Blood 11/07/2020 8:50 AM EDT 11/07/2020 9:19 AM EDT Narrative Resulting Agency Comment Spec In Lab Maximino Mcallister MD CHEMISTRY ORDERABL ES Performing Organization Address [facility] Co de Phone Number [facility] [place] [address] * Phosphorus (11/07/2020 8:50 AM EDT) Phosphorus 3.3 2.5 - 4.5 mg/dL [facility] Blood 11/07/2020 8:50 AM EDT 11/07/2020 9:19 AM EDT Narrative Resulting Agency Comment Spec In Lab Maximino Mcallister MD CHEMISTRY ORDERABL ES Performing Organization Address [facility] Co de Phone Number [facility] [place] [address] * Magnesium (11/07/2020 8:50 AM EDT) Magnesium 0.94 0.69 - 1.07 mmol/L [facility] Blood 11/07/2020 8:50 AM EDT 11/07/2020 9:19 AM EDT Narrative Resulting Agency Comment Spec In Lab Maximino Mcallister MD CHEMISTRY ORDERABL ES [facility] [place] [place] [address] * (ABNORMAL) Basic Metabolic Panel (non-fasting) (11/07/2020 8:50 AM EDT) Glucose 405(H) 65 - 199 mg/dL [facility] Comment:Diabetes: >=200 mg/d L plus symptoms Blood Urea Nitrogen 26(H) 10 - 20 mg/dL [facility] Creatinine 1.91(H) 0.80 - 1.50 mg/dL [facility] Sodium 138 135 - 145 mmol/L [facility] Potassium 4.6 3.5 - 5.0 mmol/L [facility] Comment: Please note: ??Patients with WBC >100,000 may have falsely elevated Potassium levels. ??For accurate Potassium quantification in these patients send serum separator tube (gold top) for subsequent determinations. ??Contact the Clinical Chemistry Laboratory if there are any questions. Chloride 101 98 - 107 mmol/L [facility] Carbon Dioxide 24 22 - 31 mmol/L [facility] Anion Gap 13 5 - 15 mmol/L [facility] Calcium 9.4 8.5 - 10.5 mg/dL [facility] Est Glomerular Filtration Rate 32(L) >=60 mL/min/1. 73 m?? [facility] Comment: This patient? s estimated [...] Lab Maximino Mcallister [place] [address] * XR Chest One View (11/07/2020 8:35 [...] who have questions please contact the health health care administrator that requested your imaging first. ? Narrative [...] patients who have questions please contactthe health health care administrator that requested your imaging first. Maximino Mcallister MD IMG DX ORDERABLES documented [...] PRN, Starting on Fri11/07/20 at 0749, Until [facility] 11/09/20 at 1821, Chest pain, May repeat [...] MARILYN - Reason: Contraindicated)2003 (Given - Provider: Tomsa Nelson, RN) sodium chloride 0.9 % (flush) [...] Routine documented in this encounter Care Teams Supervisor Of Communications Relationship Specialty Start Date End Date Rolando Moise MD [address] [facility] [place] [address] PCP - General Family Medicine 09/16/16 documented as of this encounter
--- OUTSIDE RECORDS SUMMARY | 2023-12-23 16:45 | XMS_ITS | Encounter Summary ---
Author Organization [facility] Address [address] [place] [address] Care Team Providers Care Portfolio Manager Name Role Phone Rolando Zacarias MD Primary Care Provider [phone] Encounter Details Date Type Department Care Team (Late st Contact Info) Description 10/28/2016 Results Only [facility] [phone] Stephani Beltre, [address] [place] [address] Social History Tobacco Use Types [...] ? CALI THOMPSON ? Accession #: ? [id number] : ? 1935 (Age: 80) ??M ?Collect Date: ? 10/28/2016 Location: ? [facility] ? Receive Date: ? 10/29/2016 Provider: ? STEPHANI BELTRE DO Copy to: ?NILSA PRINCE MECHANICAL ENERGY ENGINEER ? CYTOLOGIC DIAGNOSIS: A. NECK/TAIL OF PAROTID, [...] with clinical and radiographic findings is essential. ??Engraver Lettering slides of this case were reviewed at [...] cellular enhancement technique. ? End of Report [facility] 10/28/2016 10/29/2016 9:2 2 EDT Stephani Beltre DO PATHOLOGY ORDER BRIANNE Performing Organization Address City/State/[facility] Co de Phone Number [facility] [address] [place] [address] documented in this encounter Visit Diagnoses Not on filedocumented in this encounter Care Teams Portfolio Manager Relationship Specialty Start Date End Date Rolando Zacarias MD [address] [place] [address] PCP - General 12/17/11 10/29/16 documented as of this encounter
--- OUTSIDE RECORDS SUMMARY | 2023-12-23 16:45 | XMS_ITS | Encounter Summary ---
Author Organization [facility] Address [address] [place] [address] Care Team Providers Care Habilitative Interventionist Name Role Phone Rolando Moise MD Primary Care Provider Encounter Details Date Type Department Care Team (Late st Contact Info) Description 04/05/2021 Lab Requisition [facility] Pathology & Laboratory Medicine - [facility] [address] [place] [address] Rolando Moise MD [address] [place] [address] [place], [place] [phone] Encounter for other general examination Social History [...] management options, if applicable. 04/06/2021 11:57 EST [facility] Final Diagnosis A. SKIN OF BACK, RIGHT, PUNCH BIOPSY: -Focal acantholytic dyskeratosis. See comment. 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 04/06/2021 11:57 [facility] Attestation By the signature below, the attending physician certifies that they have 1) personally conducted a gross and/or microscopic examination of the described specimen(s), and/or personally interpreted the results of laboratory testing of the described specimen(s), and 2) personally rendered or confirmed the above diagnosis. 04/06/2021 11:57 [facility] at 1157 Clinical History Inflammatory rash; drug eruption? 04/06/2021 11:57 [facility] Gross Description A. Received in formalin labelled with proper patient identification (initials M, G) and R back, inflammatory rash eruption is a francisco-white and francisco-brown skin punch biopsy measuring 0.5 cm in diameter and excised to a depth of 0.5 cm. Bisected and submitted entirely in A1. QUINN ALY(ASCP) 04/05/2021 19:57 04/06/2021 11:57 [facility] Performing Lab [facility] 04/06/2021 11:57 [facility] Scanned Images 04/06/2021 11:57 [facility] Tissue TISSUE SPECIMEN FROM SKIN / Unknown 04/04/2021 16:00 EST 04/05/2021 17:51 EST Rolando Moise MD PATHOLOGY ORDERABLES [facility] [address] [place] [address] documented in this encounter Visit Diagnoses Diagnosis Encounter for other general examination documented in this encounter Care Teams Habilitative Interventionist Relationship Specialty Start Date End Date Rolando Moise MD [facility] [place] [address] PCP - General 6/28/17 documented as of this encounter
--- OUTSIDE RECORDS SUMMARY | 2023-12-23 16:45 | XMS_ITS | Encounter Summary ---
Author Organization [facility] Address [address] [place] [address] Care Team Providers Care Documentation Liaison Name Role Phone Rolando Moise MD Primary Care Provider [phone] Encounter Details Date Type Department Care Team (Late st Contact Info) Description 02/25/2020 Lab Requisition [facility] Pathology & Laboratory Medicine - [facility] [address], [place] [address] Outr Resulting Lab, Provider Social History Tobacco [...] rt-PCR Result NEGATIVE Negative 02/26/2020 11:54 EDT [facility] Comment: 2019-novel Coronavirus (2019-nCoV) [...] in accordance with CLIA regulations, College [employer] (CAP) guidelines (Jul 22, 2019), and FDA guidance (Jul 03, 2019). This test is only for use under the Food and Drug Administration's Emergency Use Authorization. Swab ENTIRE NASOPHARYNX / Unknown 02/25/2020 9:11 EDT 02/25/2020 15:49 EDT Provider Outr Resulting Lab MICROBIOLOGY - GENERAL ORDERABLES [facility] [place], [place] * COVID-19 TESTING (02/25/2020 9:11 EDT) COVID-19 rt-PCR Result NEGATIVE Negative 02/26/2020 12:38 EDT [facility] Comment: 2019-novel Coronavirus (2019-nCoV) not detected [...] in accordance with CLIA regulations, [employer] (CAP) guidelines (Jul 22, 2019), and FDA guidance (Jul 03, 2019). This test is only for use under the Food and Drug Administration's Emergency Use Authorization. Performing Lab [facility] 02/26/2020 12:38 EDT [facility] Swab 02/25/2020 9:11 EDT 02/25/2020 15:49 EDT Provider Outr Resulting Lab MICROBIOLOGY - GENERAL ORDERABLES [facility] [address] [place] [address] [facility] [place], [place] documented in this encounter Visit Diagnoses Not on filedocumented in this encounter Care Teams Documentation Liaison Relationship Specialty Start Date End Date Rolando Moise MD [facility] [place] [address] PCP - General 10/30/16 documented as of this encounter
--- OUTSIDE RECORDS SUMMARY | 2023-12-23 16:45 | XMS_ITS | Encounter Summary ---
Author Organization [facility] Address [address] [place] [address] Care Team Providers Care Fugitive Detective Name Role Phone Unavailable Primary Care Provider Unavailabl e Encounter Details Date Type Department Care Team (Late st Contact Info) Description 08/06/2001 Results Only [facility] [address] [place] [address] Arely Schroeder MD [address] [place] [phone] Social History Tobacco Use Types Packs/Day Years [...] CALI THOMPSON Mamie ? Accession #: ? [id number] ? : ? 1935 (Age: 65) ??M [...] Schroeder MD PATHOLOGY ORDERABLES Performing Organization Address City/State/[facility] Co de Phone Number [facility] [address] [place] [address] documented in this encounter Visit Diagnoses Not on filedocumented in this encounter
--- OUTSIDE RECORDS SUMMARY | 2023-12-23 16:45 | XMS_ITS | Encounter Summary ---
Author Organization [facility] Address [address] [place] [address] Care Team Providers Care Office Admin Name Role Phone Rolando Moise MD Primary Care Provider [phone] Encounter Details Date Type Department Care Team (Late st Contact Info) Description 04/24/[address] [facility] Pathology & Laboratory Medicine - [facility] [address] [place] [address] Dana Quijano MD [address] [place] [phone] Encounter for other general examination Social History [...] Diagnosis See scanned downtime report. 04/24/2020 13:02 [facility] Attestation Report electronically released by Rubén Adair on 04/24/20 . 04/24/2020 13:02 [facility] Performing Lab [facility] 04/24/2020 13:02 EST [facility] Scanned Images 04/24/2020 13:02 EST [facility] Tissue ENTIRE APPENDIX / Unknown 03/01/2020 12:10 EDT 04/24/2020 13:00 EST Dana Quijano MD PATHOLOGY ORDERA CHILOS [facility] [address] [place] [address] documented in this encounter Visit Diagnoses Diagnosis Encounter for other general examination documented in this encounter Care Teams Office Admin Relationship Specialty Start Date End Date Rolando Moise MD [address] [place] [address] PCP - General 10/30/16 documented as of this encounter
--- OUTSIDE RECORDS SUMMARY | 2023-12-23 16:45 | XMS_ITS | Encounter Summary ---
Author Organization [facility] [place] [address] Care Team Providers Care Art Education Professor Name Role Phone Rolando Moise MD Primary Care Provider [phone] Encounter Details Date Type Department Care Team (Late st Contact Info) Description 07/25/2023 Telephone [place] [address] Migue Ahn Social History Tobacco [...] 1:30 PM EDT Laboratory Appointment Lab [address] [place] [phone] 01/02/2024 3:00 PM EDT Office Visit Nephrology [place] [address] Adam Costa MD [facility] [place] [address] documented as of this encounter Visit Diagnoses Not on filedocumented in this encounter Care Teams Art Education Professor Relationship Specialty Start Date End Date Rolando Moise MD [address] [place] [address] [place] [address] PCP - General Family Medicine 09/16/16 documented as of this encounter
--- OUTSIDE RECORDS SUMMARY | 2023-12-23 16:45 | XMS_ITS | Encounter Summary ---
Author Organization [facility] [place] [address] Care Team Providers Care Life Skills Educator Name Role Phone Rolando Moise MD Primary Care Provider [phone] Reason for Referral * Diagnostic Test (Routine) - Authorized Specialty Diagnoses / Procedures Referred By Teodoro robertson Referred To Contact Radiology Diagnoses Infrarenal abdominal aortic aneurysm (AAA) without rupture Procedures CT Angiogram Abdomen & Pelvis w Contrast (Generic) Pascale Barboza APRN [facility] [place] [address] [facility] [place] [address] Referral ID Status Reason Start Date Expiration Date Visits Requested Visits Authorized [id number] Authorized Specialty Service Requested 06/16/2023 12/14/2024 1 1 Encounter Details Date Type Department Care Team (Late st Contact Info) Description 06/16/2023 Orders [place] [address] Pascale Barboza APRN [facility] [place] [address] Infrarenal abdominal aortic aneurysm (AAA) [...] 1:30 PM EDT Laboratory Appointment Lab [address] [place] [address] 01/02/2024 3:00 PM EDT Office Visit [place] [address] Adam Costa MD [facility] [place] [address] Scheduled Orders Name Type Priority Associated Diagnoses Orde r Schedule CT Angiogram Abdomen & Pelvis w Contrast (Generic) Imaging Routine Infrarenal abdominal aortic aneurysm (AAA) without rupture Expected: 07/15/2023, Expires: 06/16/2024 documented as of this encounter Visit Diagnoses Diagnosis Infrarenal abdominal aortic aneurysm (AAA) without rupture documented in this encounter Care Teams Life Skills Educator Relationship Specialty Start Date End Date Rolando Moise MD [address] [place] [address] PCP - General Family Medicine 09/16/16 documented as of this encounter
--- OUTSIDE RECORDS SUMMARY | 2023-12-23 16:45 | XMS_ITS | Encounter Summary ---
Author Organization [facility] Address [facility] [place] [address] Care Team Providers Care Carroter Name Role Phone Rolando Moise MD Primary Care Provider [phone] Reason for Referral * Diagnostic Test (Routine) - Closed Specialty Diagnoses / Procedures Referred By Teodoro robertson Referred To Contact Cardiology Diagnoses Cardiomyopathy, ischemic Procedures Echocardiogram Transthoracic(Leb) Muriel Manning MD [facility] [place] [address] [facility] [place] [address] Referral ID Status Reason Start Date Expiration Date V isits Requested Visits Authorized [id number] Closed Specialty Service Requested 05/27/2017 05/27/2018 1 1 Encounter Details Date Type Department Care Team (Late st Contact Info) Description 05/27/2017 Orders Only Cardiology at [address] [address] Muriel Manning MD [facility] [place] [address] Cardiomyopathy, ischemic Social History Tobacco Use [...] 1:30 PM EDT Laboratory Appointment Lab [address] [place] [phone] 01/02/2024 3:00 PM EDT Office Visit Nephrology [place] [address] Adam Costa MD [facility] [place] [address] documented as of this encounter Results * ECHO COMPLETE (09/22/2017 2:33 PM EDT) EF 60 HEARTLAB SYSTEM Anatomical Region Laterality Modality Other 09/22/2017 Narrative 09/22/2017 2:40 PM EDT Procedure: ?Transthoracic Echocardiogram Patient: ?EDD LEIVA D ?(Age): 1935(81y) Med Rec#: ? [id number] ?Sex: ?M ? Site Loc: ? [facility] ?Ht / Wt: ??178(cm)/88(kg) Pt. Loc: ?Echo Lab ?BSA: ?2.06 Study Date: ?? 09/22/2017 ?Pt. Type: Outpatient Tape: ? Referring: MURIEL MANNING T Reading: Bayron Oliva ([id number]) Senior Financial: Taisha Davidson Diagnosis: *ICD-10-PCS Ischemic cardiomyopathy (I25.5) [...] E-wave Vmax ?0.7 ?m/sec ? MV deceleration [id number] ?msec ? MV A-wave Vmax ?1.3 ?m/sec [...] ? Mid-Inferior ?Normal ? Mid-Inferoseptal ?Normal ? [place]-Septal ? Normal ? [place]-Anterior ? Normal ? [place]-Lateral ?Normal ? [place]-Inferior ? Normal ? [place]-Tip ?Normal ? This report has been electronically signed by: Bayron Oliva M.D. ? 09/22/2017 14:40:07 Images reviewed and interpretation verified [facility] Procedure Note Bayron Oliva MD - 09/22/2017 Procedure: Transthoracic Echocardiogram Patient: EDD COUCH(Age): 1935(81y) Med Rec#: [id number] Sex: M Site Loc: [facility] Ht / Wt: 178(cm)/88(kg) Pt. Loc: Echo Lab BSA: 2.06 Study Date: 09/22/2017 Pt. Type: Outpatient Tape: Referring: MURIEL MANNING T Reading: Bayron Oliva ([id number]) Senior Financial: Taisha Davidson Diagnosis: *ICD-10-PCS Ischemic cardiomyopathy (I25.5) [...] MV E-wave Vmax 0.7 m/sec MV deceleration [id number] msec MV A-wave Vmax 1.3 m/sec MV [...] Normal Mid-Posterolateral Normal Mid-Inferior Normal Mid-Inferoseptal Normal [place]-Septal Normal [place]-Anterior Normal [place]-Lateral Normal [place]-Inferior Normal [place]-Tip Normal This report has been electronically signed by: Bayron Oliva M.D. 09/22/2017 14:40:07 Images reviewed and interpretation verified [facility] Muriel Manning MD ECHO ORDERABLES documented in this encounter Visit Diagnoses Diagnosis Cardiomyopathy, ischemic Other specified forms of chronic ischemic heart disease Cardiomyopathy, ischemic Other specified forms of chronic ischemic heart disease documented in this encounter Care Teams Carroter Relationship Specialty Start Date End Date Rolando Moise MD [facility] [place] [address] [address] PCP - General Family Medicine 09/16/16 documented as of this encounter
--- OUTSIDE RECORDS SUMMARY | 2023-12-23 16:45 | XMS_ITS | Encounter Summary ---
Author Organization [facility] Address [facility] [place] [address] Care Team Providers Care Zinc Plate Grainer Name Role Phone Rolando Moise MD Primary Care Provider [phone] Encounter Details Date Type Department Care Team (Late st Contact Info) Description 11/09/2020 Telephone [place] [phone] Evan Sinclair MD [facility] [place] [address] Social History Tobacco Use Types Packs/Day Years [...] 1:30 PM EDT Laboratory Appointment Lab [address] [place] [phone] 01/02/2024 3:00 PM EDT Office Visit Nephrology [place] [address] Adam Costa MD [facility] [place] [address] documented as of this encounter Visit Diagnoses Not on filedocumented in this encounter Care Teams Zinc Plate Grainer Relationship Specialty Start Date End Date Rolando Moise MD [facility] [place] [address] [place] [address] PCP - General Family Medicine 09/16/16 documented as of this encounter
--- OUTSIDE RECORDS SUMMARY | 2023-12-23 16:45 | XMS_ITS | Encounter Summary ---
Author Organization [facility] [place] [address] Care Team Providers Care Corrosion Control Specialist Name Role Phone Rolando Moise MD Primary Care Provider Encounter Details Date Type Department Care Team (Late st Contact Info) Description 05/26/2019 Telephone [place] [phone] Elle Cunningham Social History Tobacco Use Types [...] 1:30 PM EDT Laboratory Appointment Lab [address] [place] [address] 01/02/2024 3:00 PM EDT Office Visit [place] [address] Adam Costa MD [facility] [place] [address] documented as of this encounter Visit Diagnoses Not on filedocumented in this encounter Care Teams Corrosion Control Specialist Relationship Specialty Start Date End Date Rolando Moise MD [address] [place] [address] [place] [address] PCP - General Family Medicine 09/16/16 documented as of this encounter
--- OUTSIDE RECORDS SUMMARY | 2023-12-23 16:45 | XMS_ITS | Encounter Summary ---
Author Organization [facility] Address [facility] [place] [address] Care Team Providers Care Valve Repairer Name Role Phone Rolando Moise MD Primary Care Provider [phone] Encounter Details Date Type Department Care Team (Late st Contact Info) Description 11/07/2020 External [place] [address] Social History Tobacco Use Types Packs/Day Years [...] 01/02/2024 1:30 PM EDT Laboratory Appointment Lab [address] [address] 01/02/2024 3:00 PM EDT Office Visit Nephrology [place] [address] Adam Costa MD [facility] [place] [address] documented as of this encounter Procedures Procedure Name Priority Date/Time Associated Diagnosis Comments ECG SCAN Routine 11/07/2020 documented in this encounter Results * Scan Doc: ECG (11/07/2020) Historical Provider MD MEDIA MGR SCAN EX T ORDR/RSLT documented in this encounter Visit Diagnoses Not on filedocumented in this encounter Care Teams Valve Repairer Relationship Specialty Start Date End Date Rolando Moise MD [address] [place] [address] PCP - General Family Medicine 09/16/16 documented as of this encounter
--- OUTSIDE RECORDS SUMMARY | 2023-12-23 16:45 | XMS_ITS | Encounter Summary ---
Author Organization [facility] Address [address] [place] [address] Care Team Providers Care Health Commissioner Name Role Phone Rolando Moise MD Primary Care Provider Reason for Visit * (Routine) - Receiving Office to Obtain Authorization Specialty Diagnoses / Procedures Referred By Teodoro robertson Referred To Contact Procedures CT OUTSIDE IMAGES BODY Unknown, Provider, Referral ID Status Reason Start Date Expiration Date Visits Requested Visits Authorized [id number] Receiving Office to Obtain Authorization 11/07/2020 1 1 Encounter Details Date Type Department Care Team (Latest Contact Info) Description 11/07/2020 12:01 EDT - 11/07/2020 23:[address] [facility] Secondary Reads [place] Discharge Disposition: Home or [...] filedocumented in this encounter Care Teams Health Commissioner Relationship Specialty Start Date End Date Rolando Moise [place] [address] [place] [address] PCP - General 10/30/16 documented as of this encounter
--- OUTSIDE RECORDS SUMMARY | 2023-12-23 16:45 | XMS_ITS | Encounter Summary ---
Author Organization [facility] Address [address] [place] [address] Care Team Providers Care Crop Nutrition Scientist Name Role Phone Arely Moise MD Primary Care Provider [phone] Encounter Details Date Type Department Care Team (Late st Contact Info) Description 07/19/2018 Results Only [facility] [phone] Aga Reynaga MD [address] [place] [address] Social History Tobacco Use Types [...] ? CALI THOMPSON ? Accession #: ? [id number] ? : ? 1935 (Age: 82) ??M [...] folds. The uninvolved serosa is unremarkable. ? Mat Tester sections are submitted as follows: BLOCK MOREJON 1- ??proximal margin including diverticula 2- ??distal margin 3-4- ??area of perforation site, full thickness, bisected 5-6- ??area of perforation site, full thickness, bisected 7- ??diverticula Dr. Goode 07/21/2018 1:42 PM End of Report [facility] 07/19/2018 11:1 2 EDT 07/20/2018 11:12 EDT Aga Reynaga MD PATHOLOGY ORDERA JAZZY [facility] [address] [place] [address] documented in this encounter Visit Diagnoses Not on filedocumented in this encounter Care Teams Crop Nutrition Scientist Relationship Specialty Start Date End Date Arely Moise [place] [address] [place] [address] PCP - General 10/30/16 documented as of this encounter
--- OUTSIDE RECORDS SUMMARY | 2023-12-23 16:45 | XMS_ITS | Encounter Summary ---
Author Organization [facility] [place] [address] Care Team Providers Care Kiln Worker Name Role Phone Rolando Moise MD Primary Care Provider Reason for Referral * Consultation (Routine) - Closed Specialty Diagnoses / Procedures Referred By Contac t Referred To Contact Vascular Surgery Diagnoses Abdominal aortic aneurysm (AAA) without rupture, unspecified part ROUTINE, ELPIDIO/, CT AAA Rolando Moise MD [address] [place] [address] [facility] [address] [place] [address] Referral ID Status Reason Start Date Expiration Date V isits Requested Visits Authorized [id number] Closed Consult, Test & Treat PCP Updated and/or Approved 06/13/2023 06/12/2024 1 1 Encounter Details Date Type Department Care Team (Latest Contact Info) Description 06/13/2023 Transcribe Orders eDH Incoming Referrals [phone] Rolando Moise MD [address] [place] [address] Abdominal aortic aneurysm (AAA) without rupture, [...] 1:30 PM EDT Laboratory Appointment Lab [address] [place] [address] 01/02/2024 3:00 PM EDT Office Visit [place] [address] Adam Costa MD [facility] [address] Scheduled Referrals Name Type Priority Associated Diagnoses Orde r Schedule Referral to Vascular Surgery Outpatient Referral Urgent Abdominal aortic aneurysm (AAA) without rupture, unspecified part Ordered: 06/13/2023 documented as of this encounter Visit Diagnoses Diagnosis Abdominal aortic aneurysm (AAA) without rupture, unspecified part- Primary documented in this encounter Care Teams Kiln Worker Relationship Specialty Start Date End Date Rolando Moise MD [address] [place] [address] PCP - General Family Medicine 09/16/16 documented as of this encounter
--- OUTSIDE RECORDS SUMMARY | 2023-12-23 16:45 | XMS_ITS | Encounter Summary ---
Author Organization [facility] Address [address] [place] [address] Care Team Providers Care Psychodramatist Name Role Phone Rolando Moise MD Primary Care Provider [phone] Encounter Details Date Type Department Care Team (Latest Contact Info) Description 07/19/2018 12:50 EDT - 07/19/2018 23:59 EDT Hospital Encounter [address] [address] Unknown, Provider, Discharge Disposition: Home or Self Care Social History Tobacco Use Types Packs/Day Years Used Date Smoking Tobacco: Never Assessed Sex and Gender Information Value Date Recorded Sex Assigned at Not on file Gender Identity Not on file Sexual Orientation Not on file documented as of this encounter Discharge Disposition Disposition Code Departure Means Destination Home or Self Penitentiary documented in this encounter Plan of Treatment Not on file documented as of this encounter Visit Diagnoses Not on filedocumented in this encounter Care Teams Psychodramatist Relationship Specialty Start Date End Date Rolando Moise MD [facility] [address] PCP - General 10/30/16 documented as of this encounter
--- OUTSIDE RECORDS SUMMARY | 2023-12-23 16:45 | XMS_ITS | Encounter Summary ---
Author Organization [facility] [place] [address] Care Team Providers Care Switchboard Installer Name Role Phone Rolando Moise MD Primary Care Provider Encounter Details Date Type Department Care Team (Late st Contact Info) Description 07/25/2023 Telephone [place] [address] Miuge Ahn Social History Tobacco Use Types Packs/Day [...] 1:30 PM EDT Laboratory Appointment Lab [address] [place] [address] 01/02/2024 3:00 PM EDT Office Visit [place] [address] Adam Costa MD [facility] [place] [address] documented as of this encounter Visit Diagnoses Not on filedocumented in this encounter Care Teams Switchboard Installer Relationship Specialty Start Date End Date Rolando Moise MD [address] [place] [address] [place] [address] PCP - General Family Medicine 09/16/16 documented as of this encounter
--- OUTSIDE RECORDS SUMMARY | 2023-12-23 16:45 | XMS_ITS | Clinical Summary ---
Author Organization [facility] Address [facility] [place] [address] Care Team Providers Care Construction Assistant Name Role Phone Rolando Moise MD Primary Care Provider [phone] Allergies No known active allergies Medications Medication [...] gauge x 5/16 Syringe 1 Box by [facility]Non-Drug; Combo Route) route as needed. 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 also tolerates house/yard work fine [...] Department Care Team Description 12/16/2023 [place] [address] Nimisha Olmos from Last 3 [...] 1:30 PM EDT Laboratory Appointment Lab [address] [place] [address] 01/02/2024 3:00 PM EDT Office Visit [place] [address] Adam Costa MD [facility] [place] [address] Health Maintenance Due Date Last Done Comments [...] 01/04/2024 02/05/2017 Medical Devices Implanted Type Area Paper Products Machine Operator Device Identifier Shelf Expiration Date Model / Serial / Lot Graft,Zfa,Mbdy ,[id number] ([id number]) (Autoreq) - [id number] Implanted:Qty: 1 on 04/12/2011 at [facility] IMPLANTS N/A: Aorta 03/13/2012 TFFB-32-82 -ZT / [id number] / [id number] Graft,Zfa,Ciil ,[id number],[id number] ([id number]) (Autoreq) - [id number] Implanted:Qty: 1 on 04/12/2011 at [facility] IMPLANTS Right: Abdomen 08/11/2012 TFLE-16-56 -ZT / [id number] / [id number] Description:right iliac Graft,Zfa,Ciil ,Ztk,[id number] ([id number]) ([employer]oreq) - [id number] Implanted:Qty: 1 on 04/12/2011 at [facility] IMPLANTS Left: Abdomen 03/13/2012 TFLE-16-73 -ZT / [id number] / [id number] Procedures Procedure Name Priority Date/Time Associated Diagnosis [...] Glucose Fasting 196(H) 65 - 99 mg/dL [facility] Comment: ?Fasting* Glucose Interpretive Criteria [...] of Diabetes Mellitus, Position Statement from the [place] [employer]. ??Diabetes Care, Volume 33, Supplement 1, May 2009 Blood Urea Nitrogen 26(H) 10 - 20 mg/dL [facility] Creatinine 1.64(H) 0.80 - 1.50 mg/dL [facility] Sodium 136 135 - 145 mmol/L [facility] Potassium 4.2 3.5 - 5.0 mmol/L [facility] Comment: Please note: ??Patients with WBC >100,000 may have falsely elevated Potassium levels. ??For accurate Potassium quantification in these patients send serum separator tube (gold top) for subsequent determinations. ??Contact the Clinical Chemistry Laboratory if there are any questions. Chloride 102 98 - 107 mmol/L [facility] Carbon Dioxide 23 22 - 31 mmol/L [facility] Anion Gap 11 5 - 15 mmol/L [facility] Calcium 8.8 8.5 - 10.5 mg/dL [facility] Est Glomerular Filtration Rate 38(L) >=60 mL/min/1. 73 m?? [facility] Comment: This patient? s estimated [...] Lab Maximino Mcallister MD CHEMISTRY ORDERABL ES [facility] [place] [address] * (ABNORMAL) Hemoglobin A1c (11/07/2020 8:50 AM EDT) Hemoglobin A1c 11.3(H) 4.3 - 5.6 % [facility] Comment: Reference Range: 4.3 - [...] Mellitus, Diabetes Care 2013; 36: Suppl. 1, S64-57 Estimated Average Glucose See note mg/dL [facility] Comment: Estimated Average Glucose not [...] into estimated average glucose values. ??Diabetes Care 2008:31(8):6943-7957. Blood Venous Draw / Unknown 11/07/2020 8:50 AM EDT 11/07/2020 11:00 AM EDT Narrative Resulting Agency Comment Spec In Lab Evan Sinclair MD CHEMISTRY ORDERABLES Performing Organization Address City/State/[facility] Co de Phone Number [facility] [place] [address] from Last 3 Months or Most Recently [...] is based on Patients wishes. Care Teams Construction Assistant Relationship Specialty Start Date End Date Rolando Moise MD [address] [place] [address] PCP - General Family Medicine 09/16/16
--- OUTSIDE RECORDS SUMMARY | 2023-12-23 16:45 | XMS_ITS | Encounter Summary ---
Author Organization [facility] [place] [address] Care Team Providers Care Molded Goods Spot Picker Name Role Phone Rolando Moise MD Primary Care Provider [phone] Encounter Details Date Type Department Care Team (Late st Contact Info) Description 04/21/2019 Orders Only Vascular Surgery at [place] [phone] Rachel Arenas, CASUALTY CLAIM ADJUSTER Abdominal aortic aneurysm (AAA) without rupture Social [...] 1:30 PM EDT Laboratory Appointment Lab [address] [place] [address] 01/02/2024 3:00 PM EDT Office Visit [place] [address] Adam Costa MD [facility] [place] [address] documented as of this encounter Visit Diagnoses Diagnosis Abdominal aortic aneurysm (AAA) without rupture documented in this encounter Care Teams Molded Goods Spot Picker Relationship Specialty Start Date End Date Rolando Moise MD [address] [place] [address] PCP - General Family Medicine 09/16/16 documented as of this encounter
--- OUTSIDE RECORDS SUMMARY | 2023-12-23 16:45 | XMS_ITS | Encounter Summary ---
Author Organization [facility] Address [facility] [place] [address] Care Team Providers Care Color Maker Name Role Phone Rolando Moise MD Primary Care Provider [phone] Reason for Referral * Diagnostic Test (Routine) - Closed Specialty Diagnoses / Procedures Referred By Teodoro robertson Referred To Contact Cardiology Diagnoses Cardiomyopathy, ischemic Procedures Echocardiogram Transthoracic(Leb) Muriel Manning MD [facility] [place] [address] [facility] [place] [address] Referral ID Status Reason Start Date Expiration Date V isits Requested Visits Authorized [id number] Closed Specialty Service Requested 05/27/2017 05/27/2018 1 1 Reason for Visit * Diagnostic Test (Routine) - Closed Specialty Diagnoses / Procedures Referred By Teodoro robertson Referred To Contact Cardiology Diagnoses Cardiomyopathy, ischemic Procedures Echocardiogram Transthoracic(Leb) Muriel Manning MD [facility] [place] [address] [facility] [place] [address] Referral ID Status Reason Start Date Expiration Date V isits Requested Visits Authorized [id number] Closed Specialty Service Requested 05/27/2017 05/27/2018 1 1 Encounter Details Date Type Department Care Team (Latest Contact Info) Description 09/22/2017 12:50 PM EDT - 09/22/2017 11:59 PM EDT Hospital Encounter Non-Invasive [place] [address] Muriel Manning MD [place] [address] Cardiomyopathy, ischemic Discharge Disposition: Home Social History [...] 1:30 PM EDT Laboratory Appointment Lab [address] [place] [address] 01/02/2024 3:00 PM EDT Office Visit [place] [address] Adam Costa MD [facility] [place] [address] documented as of this encounter Procedures Procedure Name Priority Date/Time Associated Diagnosis Comments ECHO COMPLETE Routine 09/22/2017 2:33 PM EDT Cardiomyopathy, ischemic documented in this encounter Results * ECHO COMPLETE (09/22/2017 2:33 PM EDT) EF 60 HEARTLAB SYSTEM Anatomical Region Laterality Modality Other 09/22/2017 Narrative 09/22/2017 2:40 PM EDT Procedure: ?Transthoracic Echocardiogram Patient: ?EDD Hatch ?(Age): 1935(81y) Med Rec#: ? [id number] ?Sex: ?M ? Site Loc: ? [facility] ?Ht / Wt: ??178(cm)/88(kg) Pt. Loc: ?Echo Lab ?BSA: ?2.06 Study Date: ?? 09/22/2017 ?Pt. Type: Outpatient Tape: ? Referring: MURIEL MANNING T Reading: Bayron Oliva ([id number]) Public Service Officer: Taisha Davidson Diagnosis: *ICD-10-PCS Ischemic cardiomyopathy (I25.5) [...] E-wave Vmax ?0.7 ?m/sec ? MV deceleration [id number] ?msec ? MV A-wave Vmax ?1.3 ?m/sec [...] ? Mid-Inferior ?Normal ? Mid-Inferoseptal ?Normal ? [place]-Septal ? Normal ? [place]-Anterior ? Normal ? [place]-Lateral ?Normal ? [place]-Inferior ? Normal ? [place]-Tip ?Normal ? This report has been electronically signed by: Bayron Oliva M.D. ? 09/22/2017 14:40:07 Images reviewed and interpretation verified [facility] Procedure Note Bayron Oliva MD - 09/22/2017 Procedure: Transthoracic Echocardiogram Patient: EDD COUCH(Age): 1935(81y) Med Rec#: [id number] Sex: M Site Loc: [facility] Ht / Wt: 178(cm)/88(kg) Pt. Loc: Echo Lab BSA: 2.06 Study Date: 09/22/2017 Pt. Type: Outpatient Tape: Referring: MURIEL MANNING T Reading: Bayrno Oliva ([id number]) Public Service Officer: Taisha Davidson Diagnosis: *ICD-10-PCS Ischemic cardiomyopathy (I25.5) [...] MV E-wave Vmax 0.7 m/sec MV deceleration [id number] msec MV A-wave Vmax 1.3 m/sec MV [...] Normal Mid-Posterolateral Normal Mid-Inferior Normal Mid-Inferoseptal Normal [place]-Septal Normal [place]-Anterior Normal [place]-Lateral Normal [place]-Inferior Normal [place]-Tip Normal This report has been electronically signed by: Bayron Oliva M.D. 09/22/2017 14:40:07 Images reviewed and interpretation verified [facility] Muriel Manning MD ECHO ORDERABLES documented in this encounter Visit Diagnoses Diagnosis Cardiomyopathy, ischemic Other specified forms of chronic ischemic heart disease documented in this encounter Care Teams Color Maker Relationship Specialty Start Date End Date Rolando Moise MD [address] [place] [address] PCP - General Family Medicine 09/16/16 documented as of this encounter
--- OUTSIDE RECORDS SUMMARY | 2023-12-23 16:45 | XMS_ITS | Encounter Summary ---
[place] [address] Care Team Providers Care National Opelint Analyst Name Role Phone Rolando Moise MD Primary Care Provider Reason for Referral * Consultation (Routine) - Closed Specialty Diagnoses / Procedures Referred By Contac t Referred To Contact Nephrology Diagnoses Chronic kidney disease, stage IV (severe) Rolando Moise MD [address] [place] [address] [facility] Nephrology [address] [place] [address] Referral ID Status Reason Start Date Expiration Date V isits Requested Visits Authorized [id number] Closed Consult, Test & Treat PCP Updated and/or Approved 02/28/2022 02/28/2023 6 6 Encounter Details Date Type Department Care Team (Latest Contact Info) Description 02/28/2022 Transcribe Orders eDH Incoming Referrals [phone] Rolando Moise MD [address] [place] [facility] [place] [address] Chronic kidney disease, stage IV (severe) [...] 1:30 PM EDT Laboratory Appointment Lab [address] [place] [address] 01/02/2024 3:00 PM EDT Office Visit Nephrology [place] [address] [facility] [place] [address] Scheduled Referrals Name Type Priority Associated Diagnoses Order Schedule Referral to Nephrology Outpatient Referral Routine Chronic kidney disease, stage IV (severe) Ordered: 02/28/2022 documented as of this encounter Visit Diagnoses Diagnosis Chronic kidney disease, stage IV (severe) Chronic kidney disease, Stage IV (severe) documented in this encounter Care Teams National Opelint Analyst Relationship Specialty Start Date End Date Rolando Moise MD [address] [place] [address] PCP - General Family Medicine 09/16/16 documented as of this encounter
--- OUTSIDE RECORDS SUMMARY | 2023-12-23 16:45 | XMS_ITS | Encounter Summary ---
Author Organization [facility] Address [facility] [place] [address] Care Team Providers Care Recruiting Administrator Name Role Phone Rolando Moise MD Primary Care Provider [phone] Reason for Visit * Reason Comments Follow-up Coronary Artery Disease Encounter Details Date Type Department Care Team (Latest Contact Info) Description 09/22/2017 4:00 PM EDT Office Visit Cardiology at [address] [address] Shoshana Moyer APRN [facility] [place] [place] [address] ASCVD (arteriosclerotic cardiovascular disease); Hypertension, unspecified type; [...] 3 months. Please call our clinic at [phone] if you have any further concerns prior to your next appointment. documented in this encounter Progress Notes * Shoshana Moyer APRN - 09/22/2017 4:00 PM EDT Images from the original note were not included. [facility] [address] General Cardiology Follow Up Subjective: Patient ID: [...] INTERIM: He had an ED visit in [facility] yesterday for eye discomfort and was diagnosed with bilateral conjunctivitis, and prescribed erythromycin. Otherwise no other ED visits or hospitalizations. 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 [...] 1:30 PM EDT Laboratory Appointment Lab [address] [place] [address] 01/02/2024 3:00 PM EDT Office Visit [place] [address] Adam Costa MD [facility] [place] [address] documented as of this encounter Visit Diagnoses Diagnosis ASCVD (arteriosclerotic cardiovascular disease) Unspecified cardiovascular disease Hypertension, unspecified type Cardiomyopathy, ischemic Other specified forms of chronic ischemic heart disease documented in this encounter Care Teams Recruiting Administrator Relationship Specialty Start Date End Date Rolando Moise MD [address] [place] [address] [place] [address] PCP - General Family Medicine 09/16/16 documented as of this encounter
--- OUTSIDE RECORDS SUMMARY | 2023-12-23 16:46 | XMS_ITS | Encounter Summary ---
Author Organization [facility] Address [facility] [place] [address] Care Team Providers Care National Van Truck Driver Name Role Phone Rolando Zacarias MD Primary Care Provider [phone] Encounter Details Date Type Department Care Team (Late st Contact Info) Description 10/22/2011 11:51 AM EDT - 10/22/2011 11:59 PM EDT Hospital Encounter CT Scan at [facility] [place] [address] Social History Tobacco Use Types Packs/Day Years [...] had a CT Scan on @ Per [facility] Policy it is important that you stop [...] contrast out of your body. Thank You, [facility] CT Scan Dept * Ancillary Services Notes - Armani Stewart - 10/22/2011 12:02 PM EDT You had a CT Scan on @ Per [facility] Policy it is important that you stop [...] contrast out of your body. Thank You, [facility] CT Scan Dept documented in this encounter Plan of Treatment Upcoming Encounters Date Type Department Care Team (Latest Contact Info) Description 01/02/2024 1:30 PM EDT Laboratory Appointment Lab [address] [address] 01/02/2024 3:00 PM EDT Office Visit [place] [address] Adam Costa MD [facility] [place] [address] documented as of this encounter Procedures Procedure [...] mg documented in this encounter Care Teams National Van Truck Driver Relationship Specialty Start Date End Date Rolando Zacarias MD PCP - General 04/12/11 09/15/16 documented as of this encounter
--- OUTSIDE RECORDS SUMMARY | 2023-12-23 16:46 | XMS_ITS | Encounter Summary ---
Author Organization [facility] Address [facility] [address] Care Team Providers Care Vacuum Spindle Sander Name Role Phone Rolando Moise MD Primary Care Provider [phone] Encounter Details Date Type Department Care Team (Late st Contact Info) Description 02/03/2017 [place] [phone] Jeanette Betancourt MD [facility] [place] [address] Social History Tobacco Use Types Packs/Day Years [...] Referring Provider: Dr. Emanuel Osei Patient Location: [facility] Past Medical History: Patient Active Problem List Diagnosis Code ??? AAA (abdominal aortic aneurysm) I71.4 ??? HTN (hypertension) I10 ??? NIDDM (non-insulin dependent diabetes mellitus) ??? S/P hernia repair Z98.890, Z87.19 Presenting Symptoms per OSH: 81 yo man with hx of HTN, HLD, NIDDM and AAA s/p stenting who presents to [facility] with chest discomfort in the upper chest and throat. Thought it felt like indigestion. No radiation. No other symptoms. 1 SL nitro given in the ED, which dropped his blood pressures, but did not affect chest pain. ASA and GI cocktail given. Patient felt like the GI cocktail helped his symptoms. EKG with anterolateral TWI, slight GOERGIA anteriorly. Trop I - 1.35 (ULN - [...] have personally reviewed EKGs. Jeanette Betancourt MD Security Ambassador PGY-4 Pager: [phone] documented in this encounter Plan of Treatment Upcoming Encounters Date Type Department Care Team (Latest Contact Info) Description 01/02/2024 1:30 PM EDT Laboratory Appointment Lab [address] [place] [address] 01/02/2024 3:00 PM EDT Office Visit Nephrology [place] [address] Adam Costa MD [facility] [place] [address] documented as of this encounter Visit Diagnoses Not on filedocumented in this encounter Care Teams Vacuum Spindle Sander Relationship Specialty Start Date End Date Rolando Moise MD [facility] [address] [place] [address] PCP - General Family Medicine 09/16/16 documented as of this encounter
--- OUTSIDE RECORDS SUMMARY | 2023-12-23 16:46 | XMS_ITS | Encounter Summary ---
Author Organization [facility] Address [facility] [place] [address] Care Team Providers Care Retrofit Installer Name Role Phone Rolando Zacarias MD Primary Care Provider [phone] Reason for Visit * Reason Comments Aneurysm (Aortic) Encounter Details Date Type Department Care Team (Late st Contact Info) Description 04/23/2011 3:20 PM EST Office Visit [place] [id number] Steven Borges MD [facility] [place] [address] AAA (abdominal aortic aneurysm) without rupture (Primary [...] 1:30 PM EDT Laboratory Appointment Lab [address] [place] [address] 01/02/2024 3:00 PM EDT Office Visit Ne[place] [address] Adam Costa MD [facility] [place] [address] documented as of this encounter Visit Diagnoses Diagnosis AAA (abdominal aortic aneurysm) without rupture- Primary Abdominal aneurysm without mention of rupture documented in this encounter Care Teams Retrofit Installer Relationship Specialty Start Date End Date Rolando Zacarias MD PCP - General 04/12/11 09/15/16 documented as of this encounter
--- OUTSIDE RECORDS SUMMARY | 2023-12-23 16:46 | XMS_ITS | Encounter Summary ---
Author Organization [facility] Address [facility] [place] [address] Care Team Providers Care Testing Machine Operator Name Role Phone Rolando Zacarias MD Primary Care Provider [phone] Encounter Details Date Type Department Care Team (Late st Contact Info) Description 07/17/2016 Orders [place] [phone] Esme Copeland CMA Abdominal aortic aneurysm (AAA) [...] 1:30 PM EDT Laboratory Appointment Lab [address] [place] [phone] 01/02/2024 3:00 PM EDT Office Visit [place] [address] Adam Costa MD [facility] [place] [address] documented as of this encounter Results * Endo-vascular AAA repair (09/16/2016 10:07 AM EDT) VB Text Report Department: Vascular Surgery Lab Patient: [id number] (CALI THOMPSON) CPT: 63898 ICD10: I71.4 Referring Physician: ACACIA BORGES ?? [...] rupture documented in this encounter Care Teams Testing Machine Operator Relationship Specialty Start Date End Date Rolando Zacarias MD PCP - General 04/12/11 09/15/16 documented as of this encounter
--- OUTSIDE RECORDS SUMMARY | 2023-12-23 16:46 | XMS_ITS | Encounter Summary ---
Author Organization [facility] [place] [address] Care Team Providers Care Conciliator Name Role Phone Rolando Moise MD Primary Care Provider [phone] Encounter Details Date Type Department Care Team (Latest Contact Info) Description 09/16/2016 9:51 AM EDT - 09/16/2016 11:59 PM EDT Hospital Encounter [place] [address] Susana Snyder, RVT Abdominal aortic aneurysm (AAA) [...] mg by mouth 3 times daily. 02/03/2017 [place]-3 Fatty Acids-Vitamin E (FISH OIL) 1,000 mg [...] 01/02/2024 1:30 PM EDT Laboratory Appointment Lab [address] [address] 01/02/2024 3:00 PM EDT Office Visit [place] [phone] Adam Costa MD [facility] [place] [address] documented as of this encounter Procedures Procedure Name Priority Date/Time Associated Diagnosis Comments ENDO-VASCULAR AAA REPAIR Routine 09/16/2016 10:07 AM EDT Abdominal aortic aneurysm (AAA) without rupture documented in this encounter Results * Endo-vascular AAA repair (09/16/2016 10:07 AM EDT) VB Text Report Department: Vascular Surgery Lab Patient: [id number] (CALI THOMPSON) CPT: 29675 ICD10: I71.4 Referring Physician: ACACIA BORGES ?? [...] Borges MD VASCULAR ORDERABLES Performing Organization Address City/State/[facility] Co de Phone Number [facility] documented in this encounter Visit Diagnoses Diagnosis Abdominal aortic aneurysm (AAA) without rupture documented in this encounter Care Teams Conciliator Relationship Specialty Start Date End Date Rolando Moise MD [facility] [place] [address] PCP - General Family Medicine 09/16/16 documented as of this encounter
--- OUTSIDE RECORDS SUMMARY | 2023-12-23 16:46 | XMS_ITS | Encounter Summary ---
Author Organization [facility] Address [facility] [place] [address] Care Team Providers Care Umbrella Repairer Name Role Phone Arely Moise MD Primary Care Provider [phone] Reason for Visit * Auth/Cert Specialty Diagnoses / Procedures Referred By Contac t Referred To Contact Diagnoses NSTEMI (non-ST elevated myocardial infarction) NSTEMI ?CAD Procedures CARDIAC CATHETERIZATION Referral ID Status Reason Start Date Expiration Date Visits Re quested Visits Authorized [id number] 1 1 Encounter Details Date Type Department Care Team (Late st Contact Info) Description 02/03/2017 2:40 PM EDT - 02/03/2017 3:40 PM EDT Surgery Wireless Architect [facility] [place] [phone] Lydia Harden MD [facility] [place] [address] CARDIAC CATHETERIZATION Social History Tobacco Use Types [...] Cesar Thompson Patient Age: 81 y.o. Language: Sami Race: White Ethnicity: Not nor Admit date: 02/03/2017 Discharge date and time: 02/05/2017 Attending Physician: Bayron Oliva MD Discharge Physician: Bayron Oliva MD Follow-up Recommendations for Providers: 1. Continue clopidogrel 75 mg and aspirin 81 mg PO daily for 12 months otherwise told differently by Psychic Reader. 2. Please monitor heart rate and blood pressure. 3. Start metoprolol XL 100 mg daily 4. Discontinue verapamil 120 mg tablet PO 5. Resume metformin 500 mg tablet PO two times a day, needs to take his second metformin dose tonight. Inpatient Provider Contact Information: Lili Ryan PA-C [facility] Provider # [id number] Discharge Diagnoses (Hospital Problems) and Secondary Diagnoses [...] above for more information.) History of Presentation: [facility] Comments: Mr. Thompson is an 81-year-old male with a past medical history of hypertension, AAA, hyperlipidemia and diabetes mellitus auh-jwnnett-wokfvqmbq who presented to [facility] with complaint of inability to sleep [...] to the ED. He drove himself. ?? [facility] did an EKG which showed sinus [...] is most likely a non-STEMI. ED called [facility] cardiology which recommended to start Plavix 300 mg orally and was started to heparin per ACS protocol. ?? Hospital Course: On admission to [facility], the patient had complaints of chest pain and some shortness of breath with exertion. Telemetry was attached which showed normal sinus rhythm. Heparin drip was infusing. [facility] records/transfer records were reviewed. Baseline labs were checked and/or drawn. NSTEMI Given the patient's risk factors and ECG changes, positive biomarkers, it was decided to proceed with coronary angiography. The patient went to the cardiac clinical lab technologist for a diagnostic cath which showedone vessel [...] 2:00 PM Shoshana Gaspar APRN Cardiology at [facility] [phone] Future Orders Complete By Expires Referral to Cardiac Rehab [[id number] Custom] As directed Process Instructions: If no progress note charted, please enter Clinical details in comments. Scheduling Instructions: Questions: My question or request is: NSTEMI, PCI. Cardiac rehab at [facility] Discharge References/Attachments MYRA INHIBITORS AND ARBS: GENERAL INFO (VINCENTIAN) PCI (PERCUTANEOUS CORONARY INTERVENTION): POST-OP (VINCENTIAN) HYPERTENSION: GENERAL INFO (VINCENTIAN) Lili Ryan PA-C 02/05/2017 documented in this encounter Discharge Instructions * Discharge Instructions* Shoshana Gaspar APRN - 02/05/2017 10:31 AM EDT Anti-coagulation follow up: Continue on plavix and aspirin for at least 12 months until otherwise told by his Psychic Reader. Call your doctor if: Chest pain, shortness of breath, pain or swelling in legs occurs. If you have non-emergent questions between now and the time of your follow up appointments: During 8am-5pm Friday through Friday call [phone] to speak with a nurse in the cardiology clinic All other times call [phone] and ask to speak to the aix administrator carbon coater machine operator. Return to work: One week Driving: No driving for 48 hours after catheterization. Follow up Appointments: PCP Arely Moise MD [phone] Your follow up appointment is scheduled for February 12, 2017 at 10:00 am Cardiology [facility] : Shoshana Gaspar NP Your follow up appointment is scheduled for March at 1:45 pm. Resume metformin 500 mg tablet PO two times a day tonight (02/05) for evening dose * Attachments The following attachments cannot be sent through Care Everywhere. 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 - continue Atorvastin, lisinopril. - Discontinue short [...] between care. SR/ST on tele with 1'AVB (FL 0.24), frequent PACs, occasional NS atrial trigem, HR 45-107. Pt sats well on RA; denied pain/discomfort and SOB throughout the shift. 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 PLAN MOVING FORWARD: [...] Progress Note Patient Name: Cesar Thompson Service: MEDICAL DEVICE ASSEMBLER / PA Responsible Attending: Bayron Oliav MD Reason for continued hospitalization: Evaluation and [...] 81 mg daily for 12 months per project management consultant. - continue Atorvastin 40 mg daily - [...] of hypertension, AAA, hiperlididemia and diabetes mellitus isd-ofqphhl-xfxiveffn who presented to [facility] with complaint of inability to sleep [...] go to the ED. He drove himself. [facility] did an EKG which showed sinus [...] is most likely a non-STEMI. ED called [facility] cardiology which recommended to start Plavix 300 [...] ANEURYSM, S&I performed by ACACIA BRYANT at [facility] OR ??? PRO AAA REPAIR, 1ST VESSEL, EXTENSION PROSTH 04/12/2011 @EVG-PLACEMENT, CUFF OR EXT. AORTIC OR ILIAC ANEURYSM REPAIR, GORE performed by ACACIA BRYANT at [facility] OR ??? PRO AAA REPAIR, MODULR BIFUR PROSTH, 2-DOCK 04/12/2011 @EVG, AAA, W\ MODULAR BIFURCATED PROS. W\ 2 DOCKING LIMBS performed by ACACIA BRYANT at [facility] MAIN OR ??? PRO AAA REPR, EXPOSE FEMORAL ART, GROIN INCIS 04/12/2011 @EXPOSURE, OPEN FEM. ARTERY FOR ENDOVASCULAR PROSTHESIS, GROIN-FABIANA performed by ACACIA BRYANT at [facility] OR ? ? PRO ENDOVASC REPAIR INFRARENAL AAA/DISSECTION S&I 04/12/2011 @EVG, INFRARENAL AAA OR DISSECTION, S&I performed by ACACIA BRYANT at [facility] MAIN OR Significant Family History: No family [...] Take 0.4 mg by mouth daily. ??? [place]-3 Fatty Acids-Vitamin E (FISH OIL) 1,000 mg [...] of hypertension, AAA, hiperlididemia and diabetes mellitus ktd-zigldah-jefgdoges who presents to [facility] with complaint of inability to sleep [...] -check A1c Provider: QUINN Ness Provider #: [id number] 02/03/2017 Cardiology staff addendum I have discussed, [...] ANEURYSM, [facility] OR ??? PRO AAA REPAIR, 1ST VESSEL, EXTENSION PROSTH 04/12/2011 @EVG-PLACEMENT, CUFF OR EXT. AORTIC OR ILIAC ANEURYSM REPAIR, GORE performed by ACACIA BRYANT at [facility] OR ??? PRO AAA REPAIR, MODULR BIFUR PROSTH, 2-DOCK 04/12/2011 @EVG, AAA, W\ MODULAR BIFURCATED PROS. W\ 2 DOCKING LIMBS performed by ACACIA BRYANT at [facility] MAIN OR ??? PRO AAA REPR, EXPOSE FEMORAL ART, GROIN INCIS 04/12/2011 @EXPOSURE, OPEN FEM. ARTERY FOR ENDOVASCULAR PROSTHESIS, GROIN-FABIANA performed by ACACIA BRYANT at [facility] MAIN OR ? ? PRO ENDOVASC REPAIR INFRARENAL AAA/DISSECTION S&I 04/12/2011 @EVG, INFRARENAL AAA OR DISSECTION, S&I performed by ACACIA BRYANT at [facility] MA[facility] OR Hospitalizations Within the Past 30 [...] per patient Preferred Pharmacy: [facility]?? Other: [facility] mail order pharmacy Primary Care Provider: Arely Moise MD [phone] Patient/Caregiver Goals of Treatment: per medical team [...] of care planning. Shital Schmidt RN Pager: [phone] * Consult Note - Riya Kellogg RN [...] in the outpatient cardiac rehabilitation program at [facility] was discussed. Patient agrees to a referral [...] 01/02/2024 1:30 PM EDT Laboratory Appointment Lab [address] [address] 01/02/2024 3:00 PM EDT Office Visit [place] [address] Adam Costa MD [facility] [place] [address] Scheduled Referrals Name Type Priority Associated Diagnoses Orde r Schedule Referral to Cardiac Rehab Outpatient Referral Routine Non-ST elevation myocardial infarction (NSTEMI) Ordered: 02/05/2017 documented as of this encounter Procedures Procedure Name Priority Date/Time Associated Diagnosis Comments LAND ACQUISITION SPECIALIST SCAN 02/06/2017 12:00 AM EDT POCT GLUCOSE [...] 02/05/20 17 3:33 AM EDT CARDIAC ENZYMES ([facility]) Routine 02/04/2017 3:33 AM EDT CBC (WITH [...] Non-ST elevation myocardial infarction (NSTEMI) CARDIAC ENZYMES ([facility]) STAT 02/03/2017 9:00 PM EDT POCT GLUCOSE Routine 02/03/2017 8:29 PM EDT POCT GLUCOSE Routine 02/03/2017 4:54 PM EDT EKG 12-LEAD Routine 02/03/2017 4:43 PM EDT Non-ST elevation myocardial infarction (NSTEMI) CARDIAC CATHETERIZATION Routine 02/04/20 17 4:26 PM EDT CARDIAC ENZYMES ([facility]) Routine 02/03/2017 3:00 PM EDT TSH Routine [...] 02/04/20 17 9:35 AM EDT CARDIAC ENZYMES ([facility]) STAT 02/03/2017 9:35 AM EDT APTT STAT 02/03/2017 9:35 AM EDT PROTHROMBIN TIME STAT 02/03/2017 9:35 AM EDT CBC (WITH DIFF) Routine 02/03/2017 9:35 AM EDT PRO-BRAIN NATRIURETIC PEPTIDE STAT 02/03/2017 9:35 AM EDT BASIC METABOLIC PANEL STAT 02/03/2017 9:35 AM EDT EKG 12-LEAD STAT 02/03/2017 9:23 AM EDT Non-ST elevation myocardial infarction (NSTEMI) documented in this encounter Results * SCAN DOC: LAND ACQUISITION SPECIALIST (02/06/2017 12:00 AM EDT) Anatomical Region Laterality Modality Other Narrative 02/06/2017 12:00 AM EDT Ordered by an unspecified provider. Scanning Provider MEDIA MGR SCAN EXT O RDR/RSLT * POCT Glucose (02/05/2017 7:32 AM EDT) Glucose, POC 160 65 - 199 mg/dL [facility] Comment: Supplemental ranges: <140 mg/dL before meals <180 mg/dL all other times of the day Blood specimen (specimen) 02/05/2017 7:32 AM EDT 02/05/2017 7:32 AM EDT Bayron Oliva MD POINT OF CARE TEST O RDERABLES Performing Organization Address City/[facility]/ZIP Co de Phone Number [facility] [place] [address] * EKG 12 Lead (02/05/2017 7:26 AM EDT) Ventricular rate 54 BPM MUSE SYSTEM Atrial Rate 54 BPM MUSE SYSTEM P-R Interval 214 ms MUSE SYSTEM QRS Duration 96 ms MUSE SYSTEM Q-T Interval 486 ms MUSE SYSTEM QTC Calculated (Bezet) 460 ms MUSE SYSTEM Calculated P Lugoff 14 degrees MUSE SYSTEM Calculated R Lugoff 112 degrees MUSE SYSTEM Calculated T Lugoff 143 degrees MUSE SYSTEM INTERPRETATION Sinus bradycardia [...] Moyer APRN ECG ORDERABLES Performing Organization Address City/[facility]/ZIP Co de Phone Number MUSE SYSTEM * (ABNORMAL) Differential, Automated (02/05/2017 3:43 AM EDT) Neutrophil % 63.2 % [facility] Neutrophil Absolute 7.21(H) 1.70 - 6.10 x10(3)/mc L [facility] Lymph % 20.7 % [facility] Lymphocytes Abs 2.4 0.9 - 3.2 x10(3)/ L [facility] Monocyte % 11.2 % [facility] Monocyte Abs 1.3(H) 0.3 - 0.9 x10(3)/ L [facility] Eos % 4.1 % [facility] Eosinophils Abs 0.5(H) 0.0 - 0.4 x10(3)/[facility] Basophil % 0.5 % [facility] Baso Absolute 0.1 0.0 - 0.1 x10(3)/[facility] Immature Gran % 0.30 % [facility] Comment: Immature granulocytes(IG's)percentage and absolute count will include metamyelocytes, myelocytes, and promyelocytes. Blood smears from CBCs yielding IG's will be scanned manually for concordance. If this scan disagrees with the automated IG or if promyelocytes are noted, a manual differential will be performed. Immature Gran Absolute 0.03 0.00 - 0.04 x10(3)/[facility] Blood specimen (specimen) 02/05/2017 3:43 AM EDT 02/05/2017 3:52 AM EDT Narrative Resulting Agency Comment Spec In Lab Shoshana Moyer APRN HEMATOLOGY ORDERABLE S [facility] [place] [address] * (ABNORMAL) Hemogram (02/05/2017 3:43 AM EDT) White Blood Cell 11.4(H) 4.0 - 9.5 x10(3)/[facility] Red Blood Cell 4.48(L) 4.58 - 5.54 x10(6)/[facility] Hemoglobin 14.0 13.7 - 16.5 gm/dL [facility] Hematocrit 41.1 40.5 - 48.5 % [facility] Mean Cell Volume 91.7 82.9 - 93.1 fL [facility] Mean Cell Hemoglobin 31.3 27.5 - 32.1 pg [facility] Mean Cell Hemoglobin Concentration 34.1 32.0 - 35.7 gm/dL [facility] Platelet 168 145 - 357 x10(3)/mc L [facility] RDW Standard Deviation 39.9 36.0 - 45.0 fL [facility] RDW coefficient of variation 11.8 11.4 - 13.8 % [facility] Mean Platelet Volume 10.2 7.6 - 12.9 fL [facility] NRBC% auto 0.0 % [facility] NRBC Absolute 0.000 0.000 - 0.000 x10(3)/mc L [facility] Blood specimen (specimen) 02/05/2017 3:43 AM EDT 02/05/2017 3:52 AM EDT Narrative Resulting Agency Comment Spec In Lab Shoshana Moyer APRN HEMATOLOGY ORDERABLE S Performing Organization Address City/State/[facility] Co de Phone Number [facility] [place] [address] * (ABNORMAL) BMP w/fasting Glucose (02/05/2017 3:43 AM EDT) Glucose Fasting 149(H) 65 - 99 mg/dL [facility] Comment: ?Fasting* Glucose Interpretive Criteria [...] of Diabetes Mellitus, Position Statement from the [place] Diabetes Association. ??Diabetes Care, Volume 33, Supplement 1, May 2009 Blood Urea Nitrogen 19 10 - 20 mg/dL [facility] Creatinine 1.46 0.80 - 1.50 mg/dL [facility] Comment: Please note that the pediatric reference intervals supplied above were not validated at [facility]. Results from pediatric patients should be interpreted in conjunction to the patient's age, height and muscle mass. Sodium 140 135 - 145 mmol/L [facility] Potassium 4.3 3.5 - 5.0 mmol/L [facility] Comment: Please note: ??Patients with WBC >100,000 may have falsely elevated Potassium levels. ??For accurate Potassium quantification in these patients send serum separator tube (gold top) for subsequent determinations. ??Contact the Clinical Chemistry Laboratory if there are any questions. Chloride 104 98 - 107 mmol/L [facility] Carbon Dioxide 24 22 - 31 mmol/L [facility] Anion Gap 12 5 - 15 mmol/L [facility] Calcium 8.8 8.5 - 10.5 mg/dL [facility] Est Glomerular Filtration Rate 46(L) >=60 [facility] Comment: This estimated GFR (eGFR) [...] the following links into your internet browser. [email or web address] Blood specimen (specimen) 02/05/2017 3:43 AM EDT 02/05/2017 3:52 AM EDT Narrative Resulting Agency Comment Spec In Lab Shoshana Moyer APRN CHEMISTRY ORDERABLES [facility] [place] [address] * Magnesium (02/05/2017 3:43 AM EDT) Magnesium 0.77 0.69 - 1.07 mmol/L [facility] Blood specimen (specimen) 02/05/2017 3:43 AM EDT 02/05/2017 3:52 AM EDT Narrative Resulting Agency Comment Spec In Lab Shoshana Moyer APRN CHEMISTRY ORDERABLES [facility] [place] [address] * POCT Glucose (02/04/2017 8:10 PM EDT) Glucose, POC 189 65 - 199 mg/dL [facility] Comment: Supplemental ranges: <140 mg/dL before meals <180 mg/dL all other times of the day Blood specimen (specimen) 02/04/2017 8:10 PM EDT 02/04/2017 8:10 PM EDT Bayron Oliva MD POINT OF CARE TEST O BHASKAR Performing Organization Address [facility]/ZIP Co de Phone Number [facility] [place] [address] * POCT Glucose (02/04/2017 4:56 PM EDT) Glucose, POC 114 65 - 199 mg/dL [facility] Comment: Supplemental ranges: <140 mg/dL before meals <180 mg/dL all other times of the day Blood specimen (specimen) 02/04/2017 4:56 PM EDT 02/04/2017 4:56 PM EDT Bayron Oliva MD POINT OF CARE TEST O BHASKAR [facility] [place] [address] * POCT Glucose (02/04/2017 11:40 AM EDT) Glucose, POC 157 65 - 199 mg/dL [facility] Comment: Supplemental ranges: <140 mg/dL before meals <180 mg/dL all other times of the day Blood specimen (specimen) 02/04/2017 11:40 AM EDT 02/04/2017 11:40 AM EDT Bayron Oliva MD POINT OF CARE TEST Constance MURO Performing Organization Address [facility] Co de Phone Number [facility] [place] [address] * POCT Glucose (02/04/2017 7:53 AM EDT) Glucose, POC 178 65 - 199 mg/dL [facility] Comment: Supplemental ranges: <140 mg/dL before meals <180 mg/dL all other times of the day Blood specimen (specimen) 02/04/2017 7:53 AM EDT 02/04/2017 7:53 AM EDT Bayron Oliva MD POINT OF CARE TEST Constance MURO Performing Organization Address [facility] de Phone Number [facility] [place] [address] * EKG 12 Lead (02/04/2017 7:17 AM EDT) Ventricular rate 65 BPM MUSE SYSTEM Atrial Rate 65 BPM MUSE SYSTEM P-R Interval 248 ms MUSE SYSTEM QRS Duration 92 ms MUSE SYSTEM Q-T Interval 484 ms MUSE SYSTEM QTC Calculated (Bezet) 503 ms MUSE SYSTEM Calculated P Lugoff 29 degrees MUSE SYSTEM Calculated R Lugoff 99 degrees MUSE SYSTEM Calculated T Lugoff 140 degrees MUSE SYSTEM INTERPRETATION Sinus rhythm [...] interpretation Confirmed by fellow MD Katherine, Truong ([id number]) on 02/04/2017 9:02:44 AM Confirmed by MD RAUL, JOAN ([id number]) on 02/04/2017 10:47:37 AM MUSE SYSTEM 02/04/2017 7:17 AM EDT 02/04/2017 10:47 AM EDT Shoshana Moyer APRN ECG ORDERABLES MUSE SYSTEM * (ABNORMAL) Cardiac Enzymes (02/04/2017 3:33 AM EDT) Troponin-T 0.95(H) 0.00 - 0.00 ng/mL [facility] Comment: The 99th percentile for Troponin T is less than 0.01 ng/mL, any detectable cTnT concentration using this assay should be considered elevated. According to the third universal definition of myocardial infarction the following criteria with a clinical presentation consistent with acute myocardial ischemia meets the diagnosis for a myocardial infarction (MT). Detection of a rise and/or fall of cTnT, with at least one value greater than the 99th percentile (> or = 0.01) and with at least one of the following ?? Symptoms of ischemia ?? New or presumed new significant IT-fjuwkti-O wave (ST-T) changes or new left bundle [...] additional sample may be indicated. Reference: Third Bittinger Definition of Myocardial Infarction. Journal of the [place] College [employer] 2012;60:1581-98 Creatine Kinase 421(H) 0 - 200 unit/L [facility] Blood specimen (specimen) Venous Draw / Unknown 02/04/2017 3:33 AM EDT 02/04/2017 3:50 AM EDT Narrative Resulting Agency Comment Spec In Lab Shoshana Moyer APRN CHEMISTRY ORDERABLES Performing Organization Address City/[facility]/ZIP Co de Phone Number [facility] [place] [address] * (ABNORMAL) Differential, Automated (02/04/2017 3:33 AM EDT) Neutrophil % 70.9 % [facility] Neutrophil Absolute 10.32(H) 1.70 - 6.10 x10(3)/mc L [facility] Lymph % 17.5 % [facility] Lymphocytes Abs 2.6 0.9 - 3.2 x10(3)/ L [facility] Monocyte % 8.8 % [facility] Monocyte Abs 1.3(H) 0.3 - 0.9 x10(3)/ L [facility] Eos % 2.0 % [facility] Eosinophils Abs 0.3 0.0 - 0.4 x10(3)/[facility] Basophil % 0.4 % [facility] Baso Absolute 0.1 0.0 - 0.1 x10(3)/ L [facility] Immature Gran % 0.40 % [facility] Comment: Immature granulocytes(IG's)percentage and absolute count will include metamyelocytes, myelocytes, and promyelocytes. Blood smears from CBCs yielding IG's will be scanned manually for concordance. If this scan disagrees with the automated IG or if promyelocytes are noted, a manual differential will be performed. Immature Gran Absolute 0.06(H) 0.00 - 0.04 x10(3)/mc L [facility] Blood specimen (specimen) 02/04/2017 3:33 AM EDT 02/04/2017 3:50 AM EDT Narrative Resulting Agency Comment Spec In Lab Shoshana Moyer APRN HEMATOLOGY ORDERABLE S Performing Organization Address City/[facility]/ZIP Co de Phone Number [facility] [place] [address] * (ABNORMAL) Hemogram (02/04/2017 3:33 AM EDT) White Blood Cell 14.6(H) 4.0 - 9.5 x10(3)/[facility] Red Blood Cell 4.65 4.58 - 5.54 x10(6)/[facility] Hemoglobin 14.6 13.7 - 16.5 gm/dL [facility] Hematocrit 41.8 40.5 - 48.5 % [facility] Mean Cell Volume 89.9 82.9 - 93.1 fL [facility] Mean Cell Hemoglobin 31.4 27.5 - 32.1 pg [facility] Mean Cell Hemoglobin Concentration 34.9 32.0 - 35.7 gm/dL [facility] Platelet 192 145 - 357 x10(3)/[facility] RDW Standard Deviation 38.6 36.0 - 45.0 [facility] RDW coefficient of variation 11.8 11.4 - 13.8 % [facility] Mean Platelet Volume 10.1 7.6 - 12.9 fL [facility] NRBC% auto 0.0 % [facility] NRBC Absolute 0.000 0.000 - 0.000 x10(3)/[facility] Blood specimen (specimen) 02/04/2017 3:33 AM EDT 02/04/2017 3:50 AM EDT Narrative Resulting Agency Comment Spec In Lab Shoshana Moyer APRN HEMATOLOGY ORDERABLE S [facility] [place] [address] * (ABNORMAL) BMP w/fasting Glucose (02/04/2017 3:33 AM EDT) Glucose Fasting 138(H) 65 - 99 mg/dL [facility] Comment: ?Fasting* Glucose Interpretive Criteria [...] of Diabetes Mellitus, Position Statement from the [place] Diabetes Association. ??Diabetes Care, Volume 33, Supplement 1, May 2009 Blood Urea Nitrogen 15 10 - 20 mg/dL [facility] Creatinine 1.34 0.80 - 1.50 mg/dL [facility] Comment: Please note that the pediatric reference intervals supplied above were not validated at [facility]. Results from pediatric patients should be interpreted in conjunction to the patient's age, height and muscle mass. Sodium 139 135 - 145 mmol/L [facility] Potassium 4.2 3.5 - 5.0 mmol/L [facility] Comment: Please note: ??Patients with WBC >100,000 may have falsely elevated Potassium levels. ??For accurate Potassium quantification in these patients send serum separator tube (gold top) for subsequent determinations. ??Contact the Clinical Chemistry Laboratory if there are any questions. Chloride 102 98 - 107 mmol/L [facility] Carbon Dioxide 23 22 - 31 mmol/L [facility] Anion Gap 14 5 - 15 mmol/L [facility] Calcium 8.7 8.5 - 10.5 mg/dL [facility] Est Glomerular Filtration Rate 51(L) >=60 [facility] Comment: This estimated GFR (eGFR) [...] the following links into your internet browser. [email or web address] Blood specimen (specimen) 02/04/2017 3:33 AM EDT 02/04/2017 3:50 AM EDT Narrative Resulting Agency Comment Spec In Lab Shoshana Moyer SALES SUPPORT ASSISTANT CHEMISTRY ORDERABLES Performing Organization Address [facility] de Phone Number [facility] [place] [address] * Magnesium (02/04/2017 3:33 AM EDT) Pathologist [facility] Magnesium 0.77 0.69 - 1.07 mmol/L [facility] Blood specimen (specimen) 02/04/2017 3:33 AM EDT 02/04/2017 3:50 AM EDT Narrative Resulting Agency Comment Spec In Lab Shoshana Moyer SALES SUPPORT ASSISTANT CHEMISTRY ORDERABLES Performing Organization Address [facility] de Phone Number [facility] [place] [address] * (ABNORMAL) Hepatic Function Panel (02/04/2017 3:33 AM EDT) Protein, Total 6.1 6.1 - 8.0 gm/dL [facility] Albumin 3.7 3.2 - 5.2 gm/dL [facility] Aspartate Aminotransferase 57(H) 0 - 39 unit/L [facility] Alanine Aminotransferase 34 0 - 55 unit/L [facility] Alkaline Phosphatase 71 40 - 120 unit/L [facility] Bilirubin, Total 0.7 0.2 - 1.3 mg/dL [facility] Bilirubin, Direct 0.1 0.0 - 0.3 mg/dL [facility] Blood specimen (specimen) 02/04/2017 3:33 AM EDT 02/04/2017 3:50 AM EDT Narrative Resulting Agency Comment Spec In Lab Shoshana Moyer SALES SUPPORT ASSISTANT CHEMISTRY ORDERABLES Performing Organization Address City/[facility]/ZIP Co de Phone Number [facility] [place] [address] * Triglyceride (02/04/2017 3:33 AM EDT) Triglyceride 171 <=199 mg/dL [facility] Blood specimen (specimen) 02/04/2017 3:33 AM EDT 02/04/2017 3:50 AM EDT Narrative Resulting Agency Comment Spec In Lab Shoshana Moyer SALES SUPPORT ASSISTANT CHEMISTRY ORDERABLES Performing Organization Address [facility] Co de Phone Number [facility] [place] [address] * (ABNORMAL) HDL/Cholesterol Profile (02/04/2017 3:33 AM EDT) Cholesterol, Total 106 <=239 mg/dL [facility] HDL Cholesterol 37(L) >=40 mg/dL [facility] Cholesterol/HDL Ratio 2.9 ratio [facility] Chol/HDL Interpretation See Note [facility] Comment: Lipid management should be guided by a patient? s ASCVD risk, goals and preferences. ACC/AHA Guidelines recommend high intensity statin if clinical ASCVD or LDL greater than or equal to 190 mg/dL. http://ReadyPulse.com/HLE-ZHG-Vaquaaarh Measure LDL if Total Cholesterol minus HDL Cholesterol is greater than 220 mg/dL. Adults aged 40-75 with LDL 70-189 mg/dL should have their 10 year ASCVD risk estimated with the ACC/AHA ASCVD risk chief estimator http://tools.acc.org/RRTLS-Ipct-Zwdtcidik/ Statin should be discussed if risk greater [...] Agency Comment Spec In Lab Shoshana Moyer IncreaseCard CHEMISTRY ORDERABLES Performing Organization Address City/[facility]/ZIP Co de Phone Number [facility] [place] [place] [address] * LDL Cholesterol, Direct (02/04/2017 3:33 AM EDT) LDL Cholesterol, Direct 47 <=190 mg/dL [facility] Blood specimen (specimen) 02/04/2017 3:33 AM EDT 02/04/2017 3:50 AM EDT Narrative Resulting Agency Comment Spec In Lab Shoshana Moyer IncreaseCard CHEMISTRY ORDERABLES Performing Organization Address [facility] Co de Phone Number [facility] [place] [address] * (ABNORMAL) Hemoglobin A1c (02/04/2017 3:33 AM EDT) Hemoglobin A1c 6.2(H) 4.3 - 5.6 % [facility] Comment: Reference Range: 4.3 - [...] Mellitus, Diabetes Care 2013; 36: Suppl. 1, L87-79 Estimated Average Glucose See note mg/dL [facility] Comment: Estimated Average Glucose not [...] into estimated average glucose values. ??Diabetes Care 2008:31(8):6584-4154. Blood specimen (specimen) 02/04/2017 3:33 AM EDT 02/04/2017 3:50 AM EDT Narrative Resulting Agency Comment Spec In Lab Shoshana Moyer APRN CHEMISTRY ORDERABLES [facility] [place] [address] * EKG 12 Lead (02/03/2017 9:16 PM EDT) Ventricular rate 77 BPM MUSE SYSTEM Atrial Rate 77 BPM MUSE SYSTEM P-R Interval 222 ms MUSE SYSTEM QRS Duration 90 ms MUSE SYSTEM Q-T Interval 458 ms MUSE SYSTEM QTC Calculated (Bezet) 518 ms MUSE SYSTEM Calculated P Lugoff 29 degrees MUSE SYSTEM Calculated R Lugoff 98 degrees MUSE SYSTEM Calculated T Lugoff 118 degrees MUSE SYSTEM INTERPRETATION Sinus rhythm [...] Oliva MD ECG ORDERABLES Performing Organization Address City/[facility]/ZIP Co de Phone Number MUSE SYSTEM * (ABNORMAL) Cardiac Enzymes (02/03/2017 9:00 PM EDT) Troponin-T 0.71(H) 0.00 - 0.00 ng/mL [facility] Comment: The 99th percentile for Troponin T is less than 0.01 ng/mL, any detectable cTnT concentration using this assay should be considered elevated. According to the third universal definition of myocardial infarction the following criteria with a clinical presentation consistent with acute myocardial ischemia meets the diagnosis for a myocardial infarction (MT). Detection of a rise and/or fall of cTnT, with at least one value greater than the 99th percentile (> or = 0.01) and with at least one of the following ?? Symptoms of ischemia ?? New or presumed new significant KV-ovrosdb-M wave (ST-T) changes or new left bundle [...] additional sample may be indicated. Reference: Third Bittinger Definition of Myocardial Infarction. Journal of the [place] College [employer] Cardiology 2012;60:1581-98 Creatine Kinase 329(H) 0 - 200 unit/L [facility] Blood specimen (specimen) 02/03/2017 9:00 PM EDT 02/03/2017 9:05 PM EDT Narrative Resulting Agency Comment Spec In Lab Shoshana Moyer APRN CHEMISTRY ORDERABLES Performing Organization Address City/[facility]/ZIP Co de Phone Number [facility] [place] [address] * POCT Glucose (02/03/2017 8:29 PM EDT) Glucose, POC 197 65 - 199 mg/dL [facility] Comment: Supplemental ranges: <140 mg/dL before meals <180 mg/dL all other times of the day Blood specimen (specimen) 02/03/2017 8:29 PM EDT 02/03/2017 8:29 PM EDT Bayron Oliva MD POINT OF CARE TEST O BHASKAR Performing Organization Address [facility] Co de Phone Number [facility] [place] [address] * POCT Glucose (02/03/2017 4:54 PM EDT) Glucose, POC 144 65 - 199 mg/dL [facility] Comment: Supplemental ranges: <140 mg/dL before meals <180 mg/dL all other times of the day Blood specimen (specimen) 02/03/2017 4:54 PM EDT 02/03/2017 4:54 PM EDT Bayron Oliva MD POINT OF CARE TEST O BHASKAR Performing Organization Address [facility] Co de Phone Number [facility] [place] [address] * EKG 12 Lead (02/03/2017 4:43 PM EDT) Ventricular rate 81 BPM MUSE SYSTEM Atrial Rate 81 BPM MUSE SYSTEM P-R Interval 226 ms MUSE SYSTEM QRS Duration 96 ms MUSE SYSTEM Q-T Interval 420 ms MUSE SYSTEM QTC Calculated (Bezet) 487 ms MUSE SYSTEM Calculated P Lugoff 30 degrees MUSE SYSTEM Calculated R Lugoff -20 degrees MUSE SYSTEM Calculated T Lugoff -19 degrees MUSE SYSTEM INTERPRETATION Sinus rhythm [...] Modality Other Narrative 02/03/2017 4:43 PM EDT ?[facility] ? Cardiac Catheterization/Intervention Report ? Patient Name: Cesar Thompson D. ? Procedure Date: 02/03/2017 ? A #: [id number] ? Primary Physician: Lydia Harden ? Case #: [id number] ? File Name: [id number] ? Catheterization Order Number: [id number] ? [facility] ? Final Report [place], [place] ? Patient Name: ? Cesar Thompson ?ID#: ?[id number] ? : ?1935 ? Procedure Date: ? February 03, 2017 ?Case #: ? [id number] ? Room: ? 6 ? Case Physician: [...] patient presented with: non-STEMI (w/i 7 days). Vincentian ?Cardiovascular Society angina class was IV. This [...] dose administered prior to arrival in the clinical lab technologist. ?Recommend continuing clopidogrel 75 mg PO daily [...] Procedure Note Lydia Harden MD - 08/08/2017 [facility] Cardiac Catheterization/Intervention Report Patient Name: Cesar Thompson Procedure Date: 02/03/2017 A #: [id number] Primary Physician: Lydia Harden Case #: [id number] File Name: [id number] Catheterization Order Number: [id number] [facility] FinalReport [place], [place] Patient Name: Cesar Thompson ID#:[id number] :1935 Procedure Date: February 03, 2017 Case [...] patient presented with: non-STEMI (w/i 7 days). Vincentian Cardiovascular Society angina class was IV. This [...] The lesion was predilated with a 2.50mm [id number] MM balloon with a maximum inflation pressure [...] dose administered prior to arrival in the clinical lab technologist. Recommend continuing clopidogrel 75 mg PO daily [...] EDT) Troponin-T 0.48(H) 0.00 - 0.00 ng/mL [facility] Comment: The 99th percentile for Troponin T is less than 0.01 ng/mL, any detectable cTnT concentration using this assay should be considered elevated. According to the third universal definition of myocardial infarction the following criteria with a clinical presentation consistent with acute myocardial ischemia meets the diagnosis for a myocardial infarction (MT). Detection of a rise and/or fall of cTnT, with at least one value greater than the 99th percentile (> or = 0.01) and with at least one of the following ?? Symptoms of ischemia ?? New or presumed new significant MF-jjacdvf-N wave (ST-T) changes or new left bundle [...] additional sample may be indicated. Reference: Third Bittinger Definition of Myocardial Infarction. Journal of the [place] College of Cardiology 2012;60:1581-98 Creatine Kinase 305(H) 0 - 200 unit/L [facility] Blood specimen (specimen) 02/03/2017 3:00 PM EDT 02/03/2017 3:22 PM EDT Narrative Resulting Agency Comment Spec In Lab Shoshana Moyer APRN CHEMISTRY ORDERABLES [facility] [place] [address] * TSH (02/03/2017 3:00 PM EDT) Thyroid Stimulating Hormone 1.18 0.27 - 4.20 mlU/ML [facility] Blood specimen (specimen) 02/03/2017 3:00 PM EDT 02/03/2017 3:22 PM EDT Narrative Resulting Agency Comment Spec In Lab Inder Medley MD CHEMISTRY ORDERABLES [facility] [place] [address] * XR Chest PA & Lateral (Generic) [...] ?EDD Hatch ?(Age): 1935(81y) Med Rec#: ? [id number] ?Sex: ?M ? Site Loc: ? [facility] ?Ht / Wt: ??175(cm)/85(kg) Pt. Loc: ?Adult Floor ? BSA: ?2.01 Study Date: ?? 02/03/2017 ?Pt. Type: Inpatient Tape: ? Referring: GRANTROBERTJ Referring: Inder Medley Reading: Mason Beth ([id number]) Foxer: Sonia Marcial Diagnosis: *ICD-10-PCS Non-ST elevation (NSTEMI) [...] ? Mid-Inferior ?Hypokinetic ? Mid-Inferoseptal ?Akinetic ? [place]-Septal ? Akinetic ? [place]-Anterior ? Akinetic ? [place]-Lateral ?Akinetic ? [place]-Inferior ? Akinetic ? [place]-Tip ?Akinetic ? This report has been electronically signed by: Mason Beth MD ? 02/03/2017 13:42:39 Images reviewed and interpretation verified [facility] Cardiac Ultrasound Laboratory Procedure Note Mason Beth MD - 02/03/2017 Procedure: Transthoracic Echocardiogram Patient: EDD Hatch (Age): 1935(81y) Med Rec#: [id number] Sex: M Site Loc: [facility] Ht / Wt: 175(cm)/85(kg) Pt. Loc: Adult Floor BSA: 2.01 Study Date: 02/03/2017 Pt. Type: Inpatient Tape: Referring: CRISTAL Referring: Inder Medley Reading: Mason Beth ([id number]) Foxer: Sonia Marcial Diagnosis: *ICD-10-PCS Non-ST elevation (NSTEMI) [...] Hypokinetic Mid-Posterolateral Hypokinetic Mid-Inferior Hypokinetic Mid-Inferoseptal Akinetic [place]-Septal Akinetic [place]-Anterior Akinetic [place]-Lateral Akinetic [place]-Inferior Akinetic [place]-Tip Akinetic This report has been electronically signed by: Mason Beth MD 02/03/2017 13:42:39 Images reviewed and interpretation verified [facility] Cardiac Ultrasound Laboratory Inder Medley MD ECHO ORDERABLES * POCT Glucose (02/03/2017 11:50 AM EDT) Glucose, POC 138 65 - 199 mg/dL [facility] Comment: Supplemental ranges: <140 mg/dL before meals <180 mg/dL all other times of the day Blood specimen (specimen) 02/03/2017 11:50 AM EDT 02/03/2017 11:50 AM EDT Bayron Oliva MD POINT OF CARE TEST O BHASKAR Performing Organization Address [facility] Co de Phone Number [facility] [place] [address] * (ABNORMAL) APTT (02/03/2017 11:50 AM EDT) [facility] Partial Thromboplastin Time 54(H) 25 - 35 sec [facility] Comment: The recommended therapeutic range for full dose, unfractionated heparin at [facility] is 80 ? 114 seconds. The use of the anti-Xa (heparin) level rather than the PTT is recommended for monitoring anticoagulation intensity in critically ill patients receiving unfractionated heparin by continuous IV infusion. Blood specimen (specimen) 02/03/2017 11:50 AM EDT 02/03/2017 12:05 PM EDT Narrative Resulting Agency Comment Spec In Lab Shoshana Moyer APRN HEMATOLOGY ORDERABLE S Performing Organization Address [facility] Phone Number [facility] [place] [address] * POCT Glucose (02/03/2017 10:13 AM EDT) [facility] Glucose, POC 148 65 - 199 mg/dL [facility] Comment: Supplemental ranges: <140 mg/dL before meals <180 mg/dL all other times of the day Blood specimen (specimen) 02/03/2017 10:13 AM EDT 02/03/2017 10:13 AM EDT Inder Medley MD POINT OF CARE TEST O BHASKAR Performing Organization Address [facility] Co de Phone Number [facility] [place] [place] [address] * (ABNORMAL) Differential, Automated (02/03/2017 9:35 AM EDT) [facility] Neutrophil % 68.5 % [facility] Neutrophil Absolute 6.52(H) 1.70 - 6.10 x10(3)/[facility] Lymph % 20.1 % [facility] Lymphocytes Abs 1.9 0.9 - 3.2 x10(3)/[facility] Monocyte % 7.5 % [facility] Monocyte Abs 0.7 0.3 - 0.9 x10(3)/[facility] Eos % 2.9 % [facility] Eosinophils Abs 0.3 0.0 - 0.4 x10(3)/[facility] Basophil % 0.7 % [facility] Baso Absolute 0.1 0.0 - 0.1 x10(3)/[facility] Immature Gran % 0.30 % [facility] Comment: Immature granulocytes(IG's)percentage and absolute count will include metamyelocytes, myelocytes, and promyelocytes. Blood smears from CBCs yielding IG's will be scanned manually for concordance. If this scan disagrees with the automated IG or if promyelocytes are noted, a manual differential will be performed. Immature Gran Absolute 0.03 0.00 - 0.04 x10(3)/[facility] Blood specimen (specimen) 02/03/2017 9:35 AM EDT 02/03/2017 9:40 AM EDT Narrative Resulting Agency Comment Spec In Lab Shoshana Moyer APRN HEMATOLOGY ORDERABLE S [facility] [place] [address] * Hemogram (02/03/2017 9:35 AM EDT) White Blood Cell 9.5 4.0 - 9.5 x10(3)/[facility] Red Blood Cell 4.99 4.58 - 5.54 x10(6)/[facility] Hemoglobin 15.3 13.7 - 16.5 gm/dL [facility] Hematocrit 44.5 40.5 - 48.5 % [facility] Mean Cell Volume 89.2 82.9 - 93.1 fL [facility] Mean Cell Hemoglobin 30.7 27.5 - 32.1 pg [facility] Mean Cell Hemoglobin Concentration 34.4 32.0 - 35.7 gm/dL [facility] Platelet 204 145 - 357 x10(3)/[facility] RDW Standard Deviation 37.7 36.0 - 45.0 fL [facility] RDW coefficient of variation 11.8 11.4 - 13.8 % [facility] Mean Platelet Volume 10.3 7.6 - 12.9 fL [facility] NRBC% auto 0.0 % [facility] NRBC Absolute 0.000 0.000 - 0.000 x10(3)/[facility] Blood specimen (specimen) 02/03/2017 9:35 AM EDT 02/03/2017 9:40 AM EDT Narrative Resulting Agency Comment Spec In Lab Shoshana Moyer APRN HEMATOLOGY ORDERABLE S [facility] [place] [address] * (ABNORMAL) Cardiac Enzymes (02/03/2017 9:35 AM EDT) Troponin-T 0.31(H) 0.00 - 0.00 ng/mL [facility] Comment: The 99th percentile for Troponin T is less than 0.01 ng/mL, any detectable cTnT concentration using this assay should be considered elevated. According to the third universal definition of myocardial infarction the following criteria with a clinical presentation consistent with acute myocardial ischemia meets the diagnosis for a myocardial infarction (MT). Detection of a rise and/or fall of cTnT, with at least one value greater than the 99th percentile (> or = 0.01) and with at least one of the following ?? Symptoms of ischemia ?? New or presumed new significant OR-zheraff-Y wave (ST-T) changes or new left bundle [...] additional sample may be indicated. Reference: Third Bittinger Definition of Myocardial Infarction. Journal of the [place] College of Cardiology 2012;60:1581-98 Creatine Kinase 264(H) 0 - 200 unit/L [facility] Blood specimen (specimen) 02/03/2017 9:35 AM EDT 02/03/2017 9:40 AM EDT Narrative Resulting Agency Comment Spec In Lab Shoshana Moyer APRN CHEMISTRY ORDERABLES Performing Organization Address [facility]/ZIP Co de Phone Number [facility] [place] [address] * (ABNORMAL) pro-Brain Natriuretic Peptide (02/03/2017 9:35 AM EDT) NT-proBNP 1,411(H) <=450 pg/mL [facility] Blood specimen (specimen) 02/03/2017 9:35 AM EDT 02/03/2017 9:40 AM EDT Narrative Resulting Agency Comment Spec In Lab Shoshana Moyer APRN CHEMISTRY ORDERABLES Performing Organization Address City/[facility]/ZIP Co de Phone Number [facility] [place] [place] [address] * (ABNORMAL) APTT (02/03/2017 9:35 AM EDT) Partial Thromboplastin Time 64(H) 25 - 35 sec [facility] Comment: The recommended therapeutic range for full dose, unfractionated heparin at [facility] is 80 ? 114 seconds. The use of the anti-Xa (heparin) level rather than the PTT is recommended for monitoring anticoagulation intensity in critically ill patients receiving unfractionated heparin by continuous IV infusion. Blood specimen (specimen) 02/03/2017 9:35 AM EDT 02/03/2017 9:40 AM EDT Narrative Resulting Agency Comment Spec In Lab Shoshana Moyer APRN HEMATOLOGY ORDERABLE S Performing Organization Address [facility]/ZIP Co de Phone Number [facility] [place] [address] * Prothrombin Time (02/03/2017 9:35 AM EDT) Prothrombin Time 14.1 12.0 - 15.0 sec [facility] Comment: An INR <2.0 indicates [...] International Normalization Ratio 1.0 0.9 - 1.1 [facility] Blood specimen (specimen) 02/03/2017 9:35 AM EDT 02/03/2017 9:40 AM EDT Narrative Resulting Agency Comment Spec In Lab Shoshana Moyer APRN HEMATOLOGY ORDERABLE S Performing Organization Address [facility] Co de Phone Number [facility] [place] [address] * (ABNORMAL) Basic Metabolic Panel (non-fasting) (02/03/2017 9:35 AM EDT) Glucose 159 65 - 199 mg/dL [facility] Comment:Diabetes: >=200 mg/d L plus symptoms Blood Urea Nitrogen 15 10 - 20 mg/dL [facility] Creatinine 1.19 0.80 - 1.50 mg/dL [facility] Comment: Please note that the pediatric reference intervals supplied above were not validated at [facility]. Results from pediatric patients should be interpreted in conjunction to the patient's age, height and muscle mass. Sodium 140 135 - 145 mmol/L [facility] Potassium 4.0 3.5 - 5.0 mmol/L [facility] Comment: Please note: ??Patients with WBC >100,000 may have falsely elevated Potassium levels. ??For accurate Potassium quantification in these patients send serum separator tube (gold top) for subsequent determinations. ??Contact the Clinical Chemistry Laboratory if there are any questions. Chloride 103 98 - 107 mmol/L [facility] Carbon Dioxide 22 22 - 31 mmol/L [facility] Anion Gap 15 5 - 15 mmol/L [facility] Calcium 9.3 8.5 - 10.5 mg/dL [facility] Est Glomerular Filtration Rate 59(L) >=60 [facility] Comment: This estimated GFR (eGFR) [...] the following links into your internet browser. [email or web address] Blood specimen (specimen) 02/03/2017 9:35 AM EDT 02/03/2017 9:40 AM EDT Narrative Resulting Agency Comment Spec In Lab Shoshana Moyer APRN CHEMISTRY ORDERABLES [facility] [place] [address] * EKG 12 Lead (02/03/2017 9:23 AM EDT) Ventricular rate 71 BPM MUSE SYSTEM Atrial Rate 71 BPM MUSE SYSTEM P-R Interval 236 ms MUSE SYSTEM QRS Duration 96 ms MUSE SYSTEM Q-T Interval 448 ms MUSE SYSTEM QTC Calculated (Bezet) 486 ms MUSE SYSTEM Calculated P Lugoff -5 degrees MUSE SYSTEM Calculated R Lugoff -17 degrees MUSE SYSTEM Calculated T Lugoff 79 degrees MUSE SYSTEM INTERPRETATION Sinus rhythm with 1st degree A-V block Inferior infarct , age undetermined T wave abnormality, consider anterolateral ischemia Abnormal ECG When compared with ECG of 12-APR-2011 07:31, T wave inversion now evident in Anterolateral leads Confirmed by MD Elsie, Rosendo Walker ([id number]) on 02/04/2017 9:15:41 AM MUSE SYSTEM 02/03/2017 [...] Routine documented in this encounter Care Teams Umbrella Repairer Relationship Specialty Start Date End Date Arely Moise MD [address] [place] [address] PCP - General Family Medicine 09/16/16 documented as of this encounter
--- OUTSIDE RECORDS SUMMARY | 2023-12-23 16:46 | XMS_ITS | Encounter Summary ---
Author Organization [facility] Address [facility] [place] [address] Care Team Providers Care Square Shear Operator Name Role Phone Rolando Zacarias MD Primary Care Provider [phone] Reason for Visit * Reason Comments Follow-up AAA surveillance Encounter Details Date Type Department Care Team (Late st Contact Info) Description 10/06/2012 1:00 PM EDT Follow-[place] [phone] CLINIC, Steven Barahona MD [facility] [place] [address] AAA (abdominal aortic aneurysm) (Primary Dx) Discharge [...] of aortic aneurysm, using Cook Zenith Flex [id number] via right; ipsilateral extension with TFLE 16-56; [...] 01/02/2024 1:30 PM EDT Laboratory Appointment Lab [address] [address] 01/02/2024 3:00 PM EDT Office Visit Neph[place] [address] Adam Costa MD [facility] [place] [place] [address] documented as of this encounter Visit Diagnoses Diagnosis AAA (abdominal aortic aneurysm)- Primary Abdominal aneurysm without mention of rupture documented in this encounter Care Teams Square Shear Operator Relationship Specialty Start Date End Date Rolando Zacarias MD PCP - General 04/12/11 09/15/16 documented as of this encounter
--- OUTSIDE RECORDS SUMMARY | 2023-12-23 16:46 | XMS_ITS | Encounter Summary ---
Author Organization [facility] [place] [address] Care Team Providers Care Electronics Tester Name Role Phone Rolando Zacarias MD Primary Care Provider [phone] Encounter Details Date Type Department Care Team (Late st Contact Info) Description 04/15/2014 Orders [place] [address] Sydnie Adam RN AAA (abdominal [...] 1:30 PM EDT Laboratory Appointment Lab [address] [place] [phone] 01/02/2024 3:00 PM EDT Office Visit [place] [address] Adam Costa MD [facility] [place] [address] documented as of this encounter Results * (ABNORMAL) Creatinine (08/11/2014 8:52 AM EDT) Creatinine 1.38 0.80 - 1.50 mg/dL [facility] Comment: Please note that the pediatric reference intervals supplied above were not validated at [facility]. Results from pediatric patients should be interpreted in conjunction to the patient's age, height and muscle mass. Est Glomerular Filtration Rate 50(L) >=60 [facility] Comment: This estimated GFR (eGFR) value [...] the following links into your internet browser. [email or web address] Blood specimen (specimen) 08/11/2014 8:52 AM EDT 08/11/2014 9:00 AM EDT Narrative Resulting Agency Comment Spec In Lab Steven Borges MD CHEMISTRY ORDERABLES [facility] documented in this encounter Visit Diagnoses Diagnosis AAA (abdominal aortic aneurysm) Abdominal aneurysm without mention of rupture documented in this encounter Care Teams Electronics Tester Relationship Specialty Start Date End Date Rolando Zacarias MD PCP - General 04/12/11 09/15/16 documented as of this encounter
--- OUTSIDE RECORDS SUMMARY | 2023-12-23 16:46 | XMS_ITS | Encounter Summary ---
Author Organization [facility] Address [facility] [place] [address] Care Team Providers Care Plc Technician Name Role Phone Rolando Moise MD Primary Care Provider [phone] Reason for Visit * Reason Comments Aneurysm (Aortic) Encounter Details Date Type Department Care Team (Late st Contact Info) Description 09/16/2016 2:00 PM EDT Office Visit [place] [phone] Erik Gill MD [facility] [place] [address] Abdominal aortic aneurysm (AAA) without rupture Social [...] of aortic aneurysm, using Cook Zenith Flex [id number] via right; ipsilateral extension with TFLE 16-56; [...] 1:30 PM EDT Laboratory Appointment Lab [address] [place] [address] 01/02/2024 3:00 PM EDT Office Visit Nephrology [place] [address] Adam Costa MD [facility] [place] [address] documented as of this encounter Visit Diagnoses Diagnosis Abdominal aortic aneurysm (AAA) without rupture documented in this encounter Care Teams Plc Technician Relationship Specialty Start Date End Date Rolando Moise MD [address] [place] [address] PCP - General Family Medicine 09/16/16 documented as of this encounter
--- OUTSIDE RECORDS SUMMARY | 2023-12-23 16:46 | XMS_ITS | Encounter Summary ---
Author Organization [facility] [place] [address] Care Team Providers Care Counterintelligence Analyst Name Role Phone Rolando Moise MD Primary Care Provider [phone] Encounter Details Date Type Department Care Team (Late st Contact Info) Description 02/03/2017 External [place] [phone] Jeanette Betancourt MD [facility] [place] [address] Social History Tobacco Use Types Packs/Day Years [...] 1:30 PM EDT Laboratory Appointment Lab [address] [place] [phone] 01/02/2024 3:00 PM EDT Office Visit Nephrology [place] [phone] Adam Costa MD [facility] [place] [address] documented as of this encounter Procedures Procedure Name Priority Date/Time Associated Diagnosis Comments ECG SCAN Routine 02/03/2017 documented in this encounter Results * Scan Doc: ECG (02/03/2017) Jeanette Betancourt MD MEDIA MGR SCAN EXT O RDR/RSLT documented in this encounter Visit Diagnoses Not on filedocumented in this encounter Care Teams Counterintelligence Analyst Relationship Specialty Start Date End Date Rolando Moise MD [facility] [place] [address] PCP - General Family Medicine 09/16/16 documented as of this encounter
--- OUTSIDE RECORDS SUMMARY | 2023-12-23 16:46 | XMS_ITS | Encounter Summary ---
Author Organization [facility] Address [facility] [place] [address] Care Team Providers Care Interior Design Program Chair Name Role Phone Rolando Zacarias MD Primary Care Provider [phone] Encounter Details Date Type Department Care Team (Late st Contact Info) Description 10/07/2012 Orders [place] [address] Skye Washington RN S/P aortic aneurysm repair [...] 1:30 PM EDT Laboratory Appointment Lab [address] [place] [phone] 01/02/2024 3:00 PM EDT Office Visit Ne[place] [phone] Adam Costa MD [facility] [place] [address] documented as of this encounter Visit Diagnoses Diagnosis S/P aortic aneurysm repair- Primary Other postprocedural status documented in this encounter Care Teams Interior Design Program Chair Relationship Specialty Start Date End Date Rolando Zacarias MD PCP - General 04/12/11 09/15/16 documented as of this encounter
--- OUTSIDE RECORDS SUMMARY | 2023-12-23 16:46 | XMS_ITS | Encounter Summary ---
Author Organization [facility] Address [facility] [place] [address] Care Team Providers Care Field Machinist Name Role Phone Rolando Zacarias MD Primary Care Provider [phone] Reason for Visit * Reason Comments Aneurysm (Aortic) Encounter Details Date Type Department Care Team (Late st Contact Info) Description 08/11/2014 10:30 AM EDT Follow-[place] [address] Steven Borges MD [facility] [place] [address] AAA (abdominal aortic aneurysm) Discharge Disposition: Home [...] of aortic aneurysm, using Cook Zenith Flex [id number] via right; ipsilateral extension with TFLE 16-56; [...] 1:30 PM EDT Laboratory Appointment Lab [address] [place] [address] 01/02/2024 3:00 PM EDT Office Visit [place] [address] Adam Costa MD [facility] [place] [address] documented as of this encounter Procedures Procedure Name Priority Date/Time Associated Diagnosis Comments CREATININE Routine 08/11/2014 8:52 AM EDT AAA (abdominal aortic aneurysm) documented in this encounter Results * (ABNORMAL) Creatinine (08/11/2014 8:52 AM EDT) Creatinine 1.38 0.80 - 1.50 mg/dL [facility] Comment: Please note that the pediatric reference intervals supplied above were not validated at [facility]. Results from pediatric patients should be interpreted in conjunction to the patient's age, height and muscle mass. Est Glomerular Filtration Rate 50(L) >=60 [facility] Comment: This estimated GFR (eGFR) value was [...] the following links into your internet browser. [email or web address] Blood specimen (specimen) 08/11/2014 8:52 AM EDT 08/11/2014 9:00 AM EDT Narrative Resulting Agency Comment Spec In Lab Steven Borges MD CHEMISTRY ORDERABLES [facility] documented in this encounter Visit Diagnoses Diagnosis AAA (abdominal aortic aneurysm) Abdominal aneurysm without mention of rupture documented in this encounter Care Teams Field Machinist Relationship Specialty Start Date End Date Rolando Zacarias MD PCP - General 04/12/11 09/15/16 documented as of this encounter
--- OUTSIDE RECORDS SUMMARY | 2023-12-23 16:46 | XMS_ITS | Encounter Summary ---
Author Organization [facility] Address [facility] [place] [address] Care Team Providers Care Table Games Dealer Name Role Phone Rolando Zacarias MD Primary Care Provider [phone] Encounter Details Date Type Department Care Team (Latest Contact Info) Description 08/11/2014 9:05 AM EDT - 08/11/2014 11:59 PM EDT Hospital Encounter CT Scan at [facility] [place] [phone] CLINIC, DR WATKINS AAA (abdominal aortic aneurysm) [...] mg by mouth 3 times daily. 02/03/2017 [place]-3 Fatty Acids-Vitamin E (FISH OIL) 1,000 mg [...] CT Scan on 08/11/2014 @ 9:40AM Per [facility] Policy it is important that you stop taking your Metformin (Diabetic Medication) for 2 days following the injection of IV iodinated contrast. You canstart taking your Metformin on 08/13/2014. If you have any questions or concerns, contact your primary care provider. Also drink plenty of water following your CT Scan to help clear the IV Iodinated contrast out of your body. Thank You, [facility] CT Scan Dept documented in this encounter Plan of Treatment Upcoming Encounters Date Type Department Care Team (Latest Contact Info) Description 01/02/2024 1:30 PM EDT Laboratory Appointment Lab [address] [place] [phone] 01/02/2024 3:00 PM EDT Office Visit Nephrology [place] [address] Adam Costa MD [facility] [place] [address] documented as of this encounter Procedures Procedure [...] less conspicuous on the current study. Stable [place] aneurysm sac size. Findings noted previously of either resolving or very early proximal sigmoid diverticulitis without perforation or abscess are stable. 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 Maximum caliber of the [place] abdominal aortic aneurysm sac unchanged, currently measuring 7.7 x 5.6 cm compared to prior of 7.6 x 5.5 cm. In 2011, this measured 7.6 x 5.3 cm. Contrast extravasation into the nightm[place] abdominal aortic aneurysm sac evident only on [...] repair of aortic aneurysm,using Cook Zenith Flex [id number] via right ipsilateral extension with [id number] contralateral extension with TFLE 16-73; Apr 12, [...] distal limbs stable. Maximum caliber of the [place] abdominalaortic aneurysm sac unchanged, currently measuring 7.7 x 5.6 cm compared to priorof 7.6 x 5.5 cm. In 2011, this measured 7.6 x 5.3 cm. Contrast extravasationinto the [place] abdominal aortic aneurysm sac evident only on [...] mg documented in this encounter Care Teams Table Games Dealer Relationship Specialty Start Date End Date Rolando Zacarias MD PCP - General 04/12/11 09/15/16 documented as of this encounter
--- OUTSIDE RECORDS SUMMARY | 2023-12-23 16:46 | XMS_ITS | Encounter Summary ---
Author Organization [facility] Address [facility] [place] [address] Care Team Providers Care E Commerce Architect Name Role Phone Rolando Zacarias MD Primary Care Provider [phone] Encounter Details Date Type Department Care Team (Latest Contact Info) Description 10/06/2012 12:00 PM EDT - 10/06/2012 11:59 PM EDT Hospital [place] [phone] AAA (abdominal aortic aneurysm) Social History Tobacco [...] Sig Dispensed Refills Start Date End Date [place]-3 Fatty Acids-Vitamin E (FISH OIL) 1,000 mg [...] CT Scan on 6-4 @ 12pm Per [facility] Policy it is important that you stop [...] contrast out of your body. Thank You, [facility] CT Scan Dept documented in this encounter Plan of Treatment Upcoming Encounters Date Type Department Care Team (Latest Contact Info) Description 01/02/2024 1:30 PM EDT Laboratory Appointment Lab [address] [place] [address] 01/02/2024 3:00 PM EDT Office Visit Ne[place] [address] Adam Costa MD [facility] [place] [address] documented as of this encounter Procedures Procedure [...] artery remains patent. 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 ??The kake abdominal aortic aneurysm sac has decreased in [...] artery remains patent. Maximum caliber of the kake abdominal aortic aneurysm sac has decreased from [...] due theinflow from an ileolumbar artery. The kake abdominal aortic aneurysm sac has decreased in [...] mg documented in this encounter Care Teams E Commerce Architect Relationship Specialty Start Date End Date Rolando Zacarias MD PCP - General 04/12/11 09/15/16 documented as of this encounter
--- OUTSIDE RECORDS SUMMARY | 2023-12-23 16:46 | XMS_ITS | Encounter Summary ---
Author Organization [facility] Address [facility] [place] [address] Care Team Providers Care Area Director Of Home Health Sales Name Role Phone Rolando Moise MD Primary Care Provider [phone] Reason for Visit * Reason Comments Follow-up Encounter Details Date Type Department Care Team (Late st Contact Info) Description 03/10/2017 2:00 PM EST Office Visit Cardiology at [address] [address] Shoshana Moyer APRN [facility] [place] [address] Coronary artery disease, angina presence unspecified, unspecified vessel or lesion type, unspecified whether anvik or transplanted heart Social History Tobacco Use [...] from the original note were not included. [facility] [place] [address] General Cardiology Follow Up Subjective: Patient ID: [...] 01/02/2024 1:30 PM EDT Laboratory Appointment Lab [address] [address] 01/02/2024 3:00 PM EDT Office Visit Neph[place] [address] Adam Costa MD [facility] [place] [address] documented as of this encounter Procedures Procedure Name Priority Date/Time Associated Diagnosis Comments EKG 12-LEAD Routine 03/10/2017 2:33 PM EST Coronary artery disease, angina presence unspecified, unspecified vessel or lesion type, unspecified whether anvik or transplanted heart documented in this encounter Results * EKG 12 Lead (03/10/2017 2:33 PM EST) Ventricular rate 71 BPM MUSE SYSTEM Atrial Rate 71 BPM MUSE SYSTEM P-R Interval 226 ms MUSE SYSTEM QRS Duration 92 ms MUSE SYSTEM Q-T Interval 414 ms MUSE SYSTEM QTC Calculated (Bezet) 449 ms MUSE SYSTEM Calculated P [place] 19 degrees MUSE SYSTEM Calculated R [place] 134 degrees MUSE SYSTEM Calculated T [place] 135 degrees MUSE SYSTEM INTERPRETATION Sinus rhythm [...] unspecified vessel or lesion type, unspecified whether anvik or transplanted heart documented in this encounter Care Teams Area Director Of Home Health Sales Relationship Specialty Start Date End Date Rolando Moise MD [address] [place] [address] PCP - General Family Medicine 09/16/16 documented as of this encounter
--- OUTSIDE RECORDS SUMMARY | 2023-12-23 16:46 | XMS_ITS | Encounter Summary ---
Author Organization [facility] Address [facility] [place] [address] Care Team Providers Care Manager Applied Name Role Phone Arely Moise MD Primary Care Provider [phone] Reason for Referral * Consultation (Routine) - Closed Specialty Diagnoses / Procedures Referred By Contact Referred To Contact Cardiac Rehabilitation Diagnoses Non-ST elevation myocardial infarction (NSTEMI) Bayron Oliva MD [facility] [place] [address] Cardiac Rehab, [address] [place] [address] Referral ID Status Reason Start Date Expiration Date V isits Requested Visits Authorized [id number] Closed Consult, Test & Treat 02/05/2017 08/04/2017 36 36 Reason for Visit * Auth/Cert Specialty Diagnoses / Procedures Referred By Contac t Referred To Contact Diagnoses NSTEMI (non-ST elevated myocardial infarction) NSTEMI ?CAD Procedures CARDIAC CATHETERIZATION Referral ID Status Reason Start Date Expiration Date Visits Re quested Visits Authorized [id number] 1 1 Encounter Details Date Type Department Care Team (Latest Contact Info) Description 02/03/2017 8:29 AM EDT - 02/05/2017 11:44 AM EDT Hospital Encounter Cardiac Special [place] [id number] Inder Medley MD [facility] [place] [address] [facility] [place] [address] Non-ST elevation myocardial infarction (NSTEMI) Discharge Disposition: [...] Cesar Thompson Patient Age: 81 y.o. Language: Samoan Race: White Ethnicity: Not nor Admit date: 02/03/2017 Discharge date and time: 02/05/2017 Attending Physician: Bayron Oliva MD Discharge Physician: Bayron Oliva MD Follow-up Recommendations for Providers: 1. Continue clopidogrel 75 mg and aspirin 81 mg PO daily for 12 months otherwise told differently by [employer]. 2. Please monitor heart rate and blood pressure. 3. Start metoprolol XL 100 mg daily 4. Discontinue verapamil 120 mg tablet PO 5. Resume metformin 500 mg tablet PO two times a day, needs to take his second metformin dose tonight. Inpatient Provider Contact Information: Lili Ryan PA-C [facility] Provider # [id number] Discharge Diagnoses (Hospital Problems) and Secondary Diagnoses [...] of hypertension, AAA, hyperlipidemia and diabetes mellitus [id number] who presented to [facility] with complaint of inability to [...] to the ED. He drove himself. ?? [facility] did an EKG which showed [...] protocol. ?? Hospital Course: On admission to [facility], the patient had complaints of chest pain [...] angiography. The patient went to the cardiac laborer syrup machine for a diagnostic cath which showedone vessel [...] 2:00 PM Shoshana Gaspar APRN Cardiology at [place] [phone] Future Orders Complete By Expires Referral to Cardiac Rehab [[id number] Custom] As directed Process Instructions: If no progress note charted, please enter Clinical details in comments. Scheduling Instructions: Questions: My question or request is: NSTEMI, PCI. Cardiac rehab at [facility] Discharge References/Attachments MYRA INHIBITORS AND ARBS: GENERAL INFO (KOSOVAN) PCI (PERCUTANEOUS CORONARY INTERVENTION): POST-OP (KOSOVAN) HYPERTENSION: GENERAL INFO (KOSOVAN) Lili Ryan PA-C 02/05/2017 documented in this encounter Discharge Instructions * Discharge Instructions* Shoshana Gaspar APRN - 02/05/2017 10:31 AM EDT Anti-coagulation follow up: Continue on plavix and aspirin for at least 12 months until otherwise told by his [employer]. Call your doctor if: Chest pain, shortness of breath, pain or swelling in legs occurs. If you have non-emergent questions between now and the time of your follow up appointments: During 8am-5pm Friday through Friday call [phone] to speak with a nurse in the cardiology clinic All other times call [phone] and ask to speak to the consulting practice manager construction estimator. Return to work: One week Driving: No driving for 48 hours after catheterization. 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 - continue Atorvastin, lisinopril. - Discontinue short [...] between care. SR/ST on tele with 1'AVB (SD 0.24), frequent PACs, occasional NS atrial trigem, HR 45-107. Pt sats well on RA; denied pain/discomfort and SOB throughout the shift. R radial cath site ADOBE BLOCK MAKER, slightly ecchymotic, but soft. 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 - continue Atorvastin 40 mg daily - [...] of hypertension, AAA, hiperlididemia and diabetes mellitus [id number] who presented to [facility] with complaint of inability to [...] go to the ED. He drove himself. [facility] did an EKG which showed [...] REPAIR, GORE performed by ACACIA BRYANT at [facility] MAIN OR ??? PRO AAA REPAIR, MODULR BIFUR PROSTH, 2-DOCK 04/12/2011 @EVG, AAA, W\ MODULAR BIFURCATED PROS. W\ 2 DOCKING LIMBS performed by ACACIA BRYANT at [facility] MAIN OR ??? PRO AAA REPR, EXPOSE FEMORAL ART, GROIN INCIS 04/12/2011 @EXPOSURE, OPEN FEM. ARTERY FOR ENDOVASCULAR PROSTHESIS, GROIN-FABIANA performed by ACACIA BRYANT at [facility] MAIN OR ? ? PRO ENDOVASC REPAIR INFRARENAL AAA/DISSECTION S&I 04/12/2011 @EVG, INFRARENAL AAA OR DISSECTION, S&I performed by ACACIA BRYANT at [facility] MA[facility] OR Significant Family History: No [...] Take 0.4 mg by mouth daily. ??? Pelham-3 Fatty Acids-Vitamin E (FISH OIL) 1,000 mg [...] of hypertension, AAA, hiperlididemia and diabetes mellitus [id number] who presents to [facility] with complaint of inability to [...] -check A1c Provider: QUINN Ness Provider #: [id number] 02/03/2017 Cardiology staff addendum I have discussed, [...] ANEURYSM, S&I performed by ACACIA BRYANT at [facility] OR ??? PRO AAA REPAIR, 1ST VESSEL, EXTENSION PROSTH 04/12/2011 @EVG-PLACEMENT, CUFF OR EXT. AORTIC OR ILIAC ANEURYSM REPAIR, GORE performed by ACACIA BRYANT at [facility] OR ??? PRO AAA REPAIR, MODULR BIFUR PROSTH, 2-DOCK 04/12/2011 @EVG, AAA, W\ MODULAR BIFURCATED PROS. W\ 2 DOCKING LIMBS performed by ACACIA BRYANT at [facility] OR ??? PRO AAA REPR, EXPOSE FEMORAL ART, GROIN INCIS 04/12/2011 @EXPOSURE, OPEN FEM. ARTERY FOR ENDOVASCULAR PROSTHESIS, GROIN-FABINAA performed by ACACIA BRYANT at [facility] OR ? ? PRO ENDOVASC REPAIR INFRARENAL AAA/DISSECTION S&I 04/12/2011 @EVG, INFRARENAL AAA OR DISSECTION, S&I performed by ACACIA BRYANT at [facility] OR Hospitalizations Within the Past 30 Days: [...] per patient Preferred Pharmacy: [facility]?? Other: [facility] mail order pharmacy Primary Care Provider: Arely Moise MD [phone] Patient/Caregiver Goals of Treatment: per medical team [...] of care planning. Shital Schmidt RN Pager: [phone] * Consult Note - Riya Kellogg RN [...] in the outpatient cardiac rehabilitation program at [facility] was discussed. Patient agrees to a [...] 1:30 PM EDT Laboratory Appointment Lab [address] [place] [address] 01/02/2024 3:00 PM EDT Office Visit [place] [address] [facility] [place] [address] Scheduled Referrals Name Type Priority Associated Diagnoses Orde r Schedule Referral to Cardiac Rehab Outpatient Referral Routine Non-ST elevation myocardial infarction (NSTEMI) Ordered: 02/05/2017 documented as of this encounter Procedures Procedure Name Priority Date/Time Associated Diagnosis Comments BLASTING ENTRY SPECIALIST SCAN 02/06/2017 12:00 AM EDT POCT [...] in this encounter Results * SCAN DOC: BLASTING ENTRY SPECIALIST (02/06/2017 12:00 AM EDT) Anatomical Region Laterality Modality Other Narrative 02/06/2017 12:00 AM EDT Ordered by an unspecified provider. Scanning Provider MEDIA MGR SCAN EXT O RDR/RSLT * POCT Glucose (02/05/2017 7:32 AM EDT) [facility] Glucose, POC 160 65 - 199 mg/dL [facility] Comment: Supplemental ranges: <140 mg/dL before meals <180 mg/dL all other times of the day Blood specimen (specimen) 02/05/2017 7:32 AM EDT 02/05/2017 7:32 AM EDT Bayron Oliva MD POINT OF CARE TEST O RDERABLES [facility] [place] [address] * EKG 12 Lead (02/05/2017 7:26 AM EDT) Ventricular rate 54 BPM MUSE SYSTEM Atrial Rate 54 BPM MUSE SYSTEM P-R Interval 214 ms MUSE SYSTEM QRS Duration 96 ms MUSE SYSTEM Q-T Interval 486 ms MUSE SYSTEM QTC Calculated (Bezet) 460 ms MUSE SYSTEM Calculated P Burt 14 degrees MUSE SYSTEM Calculated R Burt 112 degrees MUSE SYSTEM Calculated T Burt 143 degrees MUSE SYSTEM INTERPRETATION Sinus bradycardia [...] 3:43 AM EDT) Neutrophil % 63.2 % [facility] Neutrophil Absolute 7.21(H) 1.70 - 6.10 x10(3)/mc L [facility] Lymph % 20.7 % [facility] Lymphocytes Abs 2.4 0.9 - 3.2 x10(3)/mc L [facility] Monocyte % 11.2 % [facility] Monocyte Abs 1.3(H) 0.3 - 0.9 x10(3)/mc L [facility] Eos % 4.1 % [facility] Eosinophils Abs 0.5(H) 0.0 - 0.4 x10(3)/mc L [facility] Basophil % 0.5 % [facility] Baso Absolute 0.1 0.0 - 0.1 x10(3)/mc L [facility] Immature Gran % 0.30 % [facility] Comment: Immature granulocytes(IG's)percentage and absolute count will include metamyelocytes, myelocytes, and promyelocytes. Blood smears from CBCs yielding IG's will be scanned manually for concordance. If this scan disagrees with the automated IG or if promyelocytes are noted, a manual differential will be performed. Immature Gran Absolute 0.03 0.00 - 0.04 x10(3)/mc L [facility] Blood specimen (specimen) 02/05/2017 3:43 AM EDT 02/05/2017 3:52 AM EDT Narrative Resulting Agency Comment Spec In Lab Shoshana Moyer RADHA HEMATOLOGY ORDERABLE S [facility] [place] [address] * (ABNORMAL) Hemogram (02/05/2017 3:43 AM EDT) White Blood Cell 11.4(H) 4.0 - 9.5 x10(3)/[facility] Red Blood Cell 4.48(L) 4.58 - 5.54 x10(6)/[facility] Hemoglobin 14.0 13.7 - 16.5 gm/dL [facility] Hematocrit 41.1 40.5 - 48.5 % [facility] Mean Cell Volume 91.7 82.9 - 93.1 fL [facility] Mean Cell Hemoglobin 31.3 27.5 - 32.1 pg [facility] Mean Cell Hemoglobin Concentration 34.1 32.0 - 35.7 gm/dL [facility] Platelet 168 145 - 357 x10(3)/[facility] RDW Standard Deviation 39.9 36.0 - 45.0 [facility] RDW coefficient of variation 11.8 11.4 - 13.8 % [facility] Mean Platelet Volume 10.2 7.6 - 12.9 [facility] NRBC% auto 0.0 % [facility] NRBC Absolute 0.000 0.000 - 0.000 x10(3)/[facility] Blood specimen (specimen) 02/05/2017 3:43 AM EDT 02/05/2017 3:52 AM EDT Narrative Resulting Agency Comment Spec In Lab Shoshana Moyer RADHA HEMATOLOGY ORDERABLE S [facility] [place] [address] * (ABNORMAL) BMP w/fasting Glucose (02/05/2017 3:43 AM EDT) Glucose Fasting 149(H) 65 - 99 mg/dL [facility] Comment: ?Fasting* Glucose Interpretive Criteria [...] of Diabetes Mellitus, Position Statement from the [place] Diabetes Association. ??Diabetes Care, Volume 33, Supplement 1, May 2009 Blood Urea Nitrogen 19 10 - 20 mg/dL [facility] Creatinine 1.46 0.80 - 1.50 mg/dL [facility] Comment: Please note that the pediatric reference intervals supplied above were not validated at [facility]. Results from pediatric patients should be interpreted in conjunction to the patient's age, height and muscle mass. Sodium 140 135 - 145 mmol/L [facility] Potassium 4.3 3.5 - 5.0 mmol/L [facility] Comment: Please note: ??Patients with WBC >100,000 may have falsely elevated Potassium levels. ??For accurate Potassium quantification in these patients send serum separator tube (gold top) for subsequent determinations. ??Contact the Clinical Chemistry Laboratory if there are any questions. Chloride 104 98 - 107 mmol/L [facility] Carbon Dioxide 24 22 - 31 mmol/L [facility] Anion Gap 12 5 - 15 mmol/L [facility] Calcium 8.8 8.5 - 10.5 mg/dL [facility] Est Glomerular Filtration Rate 46(L) >=60 [facility] Comment: This estimated GFR (eGFR) value [...] the following links into your internet browser. [email or web address] [email or web address] Blood specimen (specimen) 02/05/2017 3:43 AM EDT 02/05/2017 3:52 AM EDT Narrative Resulting Agency Comment Spec In Lab Shoshana Moyer APRN CHEMISTRY ORDERABLES Performing Organization Address [facility] Co de Phone Number [facility] [place] [address] * Magnesium (02/05/2017 3:43 AM EDT) Magnesium 0.77 0.69 - 1.07 mmol/L [facility] Blood specimen (specimen) 02/05/2017 3:43 AM EDT 02/05/2017 3:52 AM EDT Narrative Resulting Agency Comment Spec In Lab Shoshana Doc Moyer RN MDS COORDINATOR CHEMISTRY ORDERABLES Performing Organization Address [facility] Co de Phone Number [facility] [place] [address] * POCT Glucose (02/04/2017 8:10 PM EDT) Glucose, POC 189 65 - 199 mg/dL [facility] Comment: Supplemental ranges: <140 mg/dL before meals <180 mg/dL all other times of the day Blood specimen (specimen) 02/04/2017 8:10 PM EDT 02/04/2017 8:10 PM EDT Bayron Oliva MD POINT OF CARE TEST O RDERABLES Performing Organization Address City[facility]/ZIP Co de Phone Number [facility] [place] [address] * POCT Glucose (02/04/2017 4:56 PM EDT) Glucose, POC 114 65 - 199 mg/dL [facility] Comment: Supplemental ranges: <140 mg/dL before meals <180 mg/dL all other times of the day Blood specimen (specimen) 02/04/2017 4:56 PM EDT 02/04/2017 4:56 PM EDT Bayron Oliva MD POINT OF CARE TEST O KORTNEYERAJAZZY Performing Organization Address [facility] Co de Phone Number [facility] [place] [address] * POCT Glucose (02/04/2017 11:40 AM EDT) Glucose, POC 157 65 - 199 mg/dL [facility] Comment: Supplemental ranges: <140 mg/dL before meals <180 mg/dL all other times of the day Blood specimen (specimen) 02/04/2017 11:40 AM EDT 02/04/2017 11:40 AM EDT Bayron Oliva MD POINT OF CARE TEST O RDERAJAZZY Performing Organization Address [facility] Co de Phone Number [facility] [place] [address] * POCT Glucose (02/04/2017 7:53 AM EDT) Glucose, POC 178 65 - 199 mg/dL [facility] Comment: Supplemental ranges: <140 mg/dL before meals <180 mg/dL all other times of the day Blood specimen (specimen) 02/04/2017 7:53 AM EDT 02/04/2017 7:53 AM EDT Bayron Oliva MD POINT OF CARE TEST O RDERABLES [facility] [place] [address] * EKG 12 Lead (02/04/2017 7:17 AM EDT) Ventricular rate 65 BPM MUSE SYSTEM Atrial Rate 65 BPM MUSE SYSTEM P-R Interval 248 ms MUSE SYSTEM QRS Duration 92 ms MUSE SYSTEM Q-T Interval 484 ms MUSE SYSTEM QTC Calculated (Bezet) 503 ms MUSE SYSTEM Calculated P Burt 29 degrees MUSE SYSTEM Calculated R Burt 99 degrees MUSE SYSTEM Calculated T Burt 140 degrees MUSE SYSTEM INTERPRETATION Sinus rhythm [...] interpretation Confirmed by fellow MD Katherine, Truong ([id number]) on 02/04/2017 9:02:44 AM Confirmed by MD RAUL, JOAN ([id number]) on 02/04/2017 10:47:37 AM MUSE SYSTEM 02/04/2017 7:17 AM EDT 02/04/2017 10:47 AM EDT Shoshana Moyer APRN ECG ORDERABLES MUSE SYSTEM * (ABNORMAL) Cardiac Enzymes (02/04/2017 3:33 AM EDT) Troponin-T 0.95(H) 0.00 - 0.00 ng/mL [facility] Comment: The 99th percentile for Troponin T is less than 0.01 ng/mL, any detectable cTnT concentration using this assay should be considered elevated. According to the third universal definition of myocardial infarction the following criteria with a clinical presentation consistent with acute myocardial ischemia meets the diagnosis for a myocardial infarction (CO). Detection of a rise and/or fall of cTnT, with at least one value greater than the 99th percentile (> or = 0.01) and with at least one of the following ?? Symptoms of ischemia ?? New or presumed new significant CM-vczvjav-W wave (ST-T) changes or new left bundle [...] additional sample may be indicated. Reference: Third [place] Definition of Myocardial Infarction. Journal of the [place] College of [employer]iology 2012;60:1581-98 Creatine Kinase 421(H) 0 - 200 unit/L [facility] Blood specimen (specimen) Venous Draw / Unknown 02/04/2017 3:33 AM EDT 02/04/2017 3:50 AM EDT Narrative Resulting Agency Comment Spec In Lab Shoshana Moyer APRN CHEMISTRY ORDERABLES Performing Organization Address City/State/[facility] Co de Phone Number [facility] [place] [address] * (ABNORMAL) Differential, Automated (02/04/2017 3:33 AM EDT) Neutrophil % 70.9 % [facility] Neutrophil Absolute 10.32(H) 1.70 - 6.10 x10(3)/mc L [facility] Lymph % 17.5 % [facility] Lymphocytes Abs 2.6 0.9 - 3.2 x10(3)/mc L [facility] Monocyte % 8.8 % [facility] Monocyte Abs 1.3(H) 0.3 - 0.9 x10(3)/mc L [facility] Eos % 2.0 % [facility] Eosinophils Abs 0.3 0.0 - 0.4 x10(3)/mc L [facility] Basophil % 0.4 % [facility] Baso Absolute 0.1 0.0 - 0.1 x10(3)/[facility] Immature Gran % 0.40 % [facility] Comment: Immature granulocytes(IG's)percentage and absolute count will include metamyelocytes, myelocytes, and promyelocytes. Blood smears from CBCs yielding IG's will be scanned manually for concordance. If this scan disagrees with the automated IG or if promyelocytes are noted, a manual differential will be performed. Immature Gran Absolute 0.06(H) 0.00 - 0.04 x10(3)/[facility] Blood specimen (specimen) 02/04/2017 3:33 AM EDT 02/04/2017 3:50 AM EDT Narrative Resulting Agency Comment Spec In Lab Shoshana Moyer APRN HEMATOLOGY ORDERABLE S [facility] [place] [address] * (ABNORMAL) Hemogram (02/04/2017 3:33 AM EDT) White Blood Cell 14.6(H) 4.0 - 9.5 x10(3)/[facility] Red Blood Cell 4.65 4.58 - 5.54 x10(6)/[facility] Hemoglobin 14.6 13.7 - 16.5 gm/dL [facility] Hematocrit 41.8 40.5 - 48.5 % [facility] Mean Cell Volume 89.9 82.9 - 93.1 fL [facility] Mean Cell Hemoglobin 31.4 27.5 - 32.1 pg [facility] Mean Cell Hemoglobin Concentration 34.9 32.0 - 35.7 gm/dL [facility] Platelet 192 145 - 357 x10(3)/ L [facility] RDW Standard Deviation 38.6 36.0 - 45.0 fL [facility] RDW coefficient of variation 11.8 11.4 - 13.8 % [facility] Mean Platelet Volume 10.1 7.6 - 12.9 fL [facility] NRBC% auto 0.0 % [facility] NRBC Absolute 0.000 0.000 - 0.000 x10(3)/mc L [facility] Blood specimen (specimen) 02/04/2017 3:33 AM EDT 02/04/2017 3:50 AM EDT Narrative Resulting Agency Comment Spec In Lab Shoshana J King RADHA HEMATOLOGY ORDERABLE S [facility] [place] [address] * (ABNORMAL) BMP w/fasting Glucose (02/04/2017 3:33 AM EDT) Glucose Fasting 138(H) 65 - 99 mg/dL [facility] Comment: ?Fasting* Glucose Interpretive Criteria [...] of Diabetes Mellitus, Position Statement from the [place] Diabetes [employer]. ??Diabetes Care, Volume 33, Supplement 1, May 2009 Blood Urea Nitrogen 15 10 - 20 mg/dL [facility] Creatinine 1.34 0.80 - 1.50 mg/dL [facility] Comment: Please note that the pediatric reference intervals supplied above were not validated at [facility]. Results from pediatric patients should be interpreted in conjunction to the patient's age, height and muscle mass. Sodium 139 135 - 145 mmol/L [facility] Potassium 4.2 3.5 - 5.0 mmol/L [facility] Comment: Please note: ??Patients with WBC >100,000 may have falsely elevated Potassium levels. ??For accurate Potassium quantification in these patients send serum separator tube (gold top) for subsequent determinations. ??Contact the Clinical Chemistry Laboratory if there are any questions. Chloride 102 98 - 107 mmol/L [facility] Carbon Dioxide 23 22 - 31 mmol/L [facility] Anion Gap 14 5 - 15 mmol/L [facility] Calcium 8.7 8.5 - 10.5 mg/dL [facility] Est Glomerular Filtration Rate 51(L) >=60 [facility] Comment: This estimated GFR (eGFR) value [...] the following links into your internet browser. [email or web address] [email or web address]://[email or web address] Blood specimen (specimen) 02/04/2017 3:33 AM EDT 02/04/2017 3:50 AM EDT Narrative Resulting Agency Comment Spec In Lab Shoshana Moyer APRN CHEMISTRY ORDERABLES Performing Organization Address [facility] Co de Phone Number [facility] [place] [address] * Magnesium (02/04/2017 3:33 AM EDT) Magnesium 0.77 0.69 - 1.07 mmol/L [facility] Blood specimen (specimen) 02/04/2017 3:33 AM EDT 02/04/2017 3:50 AM EDT Narrative Resulting Agency Comment Spec In Lab Shoshana Moyer APRN CHEMISTRY ORDERABLES Performing Organization Address [facility] Co de Phone Number [facility] [address] * (ABNORMAL) Hepatic Function Panel (02/04/2017 3:33 AM EDT) [facility] Protein, Total 6.1 6.1 - 8.0 gm/dL [facility] Albumin 3.7 3.2 - 5.2 gm/dL [facility] Aspartate Aminotransferase 57(H) 0 - 39 unit/L [facility] Alanine Aminotransferase 34 0 - 55 unit/L [facility] Alkaline Phosphatase 71 40 - 120 unit/L [facility] Bilirubin, Total 0.7 0.2 - 1.3 mg/dL [facility] Bilirubin, Direct 0.1 0.0 - 0.3 mg/dL [facility] Blood specimen (specimen) 02/04/2017 3:33 AM EDT 02/04/2017 3:50 AM EDT Narrative Resulting Agency Comment Spec In Lab Shoshana Roach João RN MDS COORDINATOR CHEMISTRY ORDERABLES Performing Organization Address City/[facility]/ZIP Co de Phone Number [facility] [place] [address] * Triglyceride (02/04/2017 3:33 AM EDT) [facility] Triglyceride 171 <=199 mg/dL [facility] Blood specimen (specimen) 02/04/2017 3:33 AM EDT 02/04/2017 3:50 AM EDT Narrative Resulting Agency Comment Spec In Lab Shoshana Roach [employer] RN MDS COORDINATOR CHEMISTRY ORDERABLES [facility] [place] [address] * (ABNORMAL) HDL/Cholesterol Profile (02/04/2017 3:33 AM EDT) [facility] Cholesterol, Total 106 <=239 mg/dL [facility] HDL Cholesterol 37(L) >=40 mg/dL [facility] Cholesterol/HDL Ratio 2.9 ratio [facility] Chol/HDL Interpretation See Note [facility] Comment: Lipid management should be guided by a patient? s ASCVD risk, goals and preferences. ACC/AHA Guidelines recommend high intensity statin if clinical ASCVD or LDL greater than or equal to 190 mg/dL. [email or web address] Measure LDL if Total Cholesterol minus HDL Cholesterol is greater than 220 mg/dL. Adults aged 40-75 with LDL 70-189 mg/dL should have their 10 year ASCVD risk estimated with the ACC/AHA ASCVD risk production cost estimator http://tools.acc.org/FGWJZ-Chqu-Tvdvjrjvp/ Statin should be discussed if risk greater [...] Moyer APRN CHEMISTRY ORDERABLES Performing Organization Address [facility] Co de Phone Number [facility] [place] [address] * LDL Cholesterol, Direct (02/04/2017 3:33 AM EDT) LDL Cholesterol, Direct 47 <=190 mg/dL [facility] Blood specimen (specimen) 02/04/2017 3:33 AM EDT 02/04/2017 3:50 AM EDT Narrative Resulting Agency Comment Spec In Lab Shoshana Moyer APRN CHEMISTRY ORDERABLES Performing Organization Address [facility] Co de Phone Number [facility] [place] [address] * (ABNORMAL) Hemoglobin A1c (02/04/2017 3:33 AM EDT) Hemoglobin A1c 6.2(H) 4.3 - 5.6 % [facility] Comment: Reference Range: 4.3 - [...] Mellitus, Diabetes Care 2013; 36: Suppl. 1, S67-98 Estimated Average Glucose See note mg/dL [facility] Comment: Estimated Average Glucose not [...] into estimated average glucose values. ??Diabetes Care 2008:31(8):6359-6152. Blood specimen (specimen) 02/04/2017 3:33 AM EDT 02/04/2017 3:50 AM EDT Narrative Resulting Agency Comment Spec In Lab Shoshana Moyer APRN CHEMISTRY ORDERABLES [facility] [place] [address] * EKG 12 Lead (02/03/2017 9:16 PM EDT) Ventricular rate 77 BPM MUSE SYSTEM Atrial Rate 77 BPM MUSE SYSTEM P-R Interval 222 ms MUSE SYSTEM QRS Duration 90 ms MUSE SYSTEM Q-T Interval 458 ms MUSE SYSTEM QTC Calculated (Bezet) 518 ms MUSE SYSTEM Calculated P Burt 29 degrees MUSE SYSTEM Calculated R Burt 98 degrees MUSE SYSTEM Calculated T Burt 118 degrees MUSE SYSTEM INTERPRETATION Sinus rhythm [...] Oliva MD ECG ORDERABLES Performing Organization Address [facility] Co de Phone Number MUSE SYSTEM * (ABNORMAL) Cardiac Enzymes (02/03/2017 9:00 PM EDT) [facility] Troponin-T 0.71(H) 0.00 - 0.00 ng/mL [facility] Comment: The 99th percentile for Troponin T is less than 0.01 ng/mL, any detectable cTnT concentration using this assay should be considered elevated. According to the third universal definition of myocardial infarction the following criteria with a clinical presentation consistent with acute myocardial ischemia meets the diagnosis for a myocardial infarction (CO). Detection of a rise and/or fall of cTnT, with at least one value greater than the 99th percentile (> or = 0.01) and with at least one of the following ?? Symptoms of ischemia ?? New or presumed new significant GN-gzubmic-H wave (ST-T) changes or new left bundle [...] additional sample may be indicated. Reference: Third [place] Definition of Myocardial Infarction. Journal of the [place] College of Cardiology 2012;60:1581-98 Creatine Kinase 329(H) 0 - 200 unit/L [facility] Blood specimen (specimen) 02/03/2017 9:00 PM EDT 02/03/2017 9:05 PM EDT Narrative Resulting Agency Comment Spec In Lab Shoshana Moyer APRN CHEMISTRY ORDERABLES Performing Organization Address [facility]/ZIP Co de Phone Number [facility] [place] [address] * POCT Glucose (02/03/2017 8:29 PM EDT) Glucose, POC 197 65 - 199 mg/dL [facility] Comment: Supplemental ranges: <140 mg/dL before meals <180 mg/dL all other times of the day Blood specimen (specimen) 02/03/2017 8:29 PM EDT 02/03/2017 8:29 PM EDT Bayron Oliva MD POINT OF CARE TEST O RDERABLES [facility] [place] [address] * POCT Glucose (02/03/2017 4:54 PM EDT) Glucose, POC 144 65 - 199 mg/dL [facility] Comment: Supplemental ranges: <140 mg/dL before meals <180 mg/dL all other times of the day Blood specimen (specimen) 02/03/2017 4:54 PM EDT 02/03/2017 4:54 PM EDT Bayron Oliva MD POINT OF CARE TEST O RDERABLES Performing Organization Address [facility] Co de Phone Number [facility] [place] [address] * EKG 12 Lead (02/03/2017 4:43 PM EDT) Ventricular rate 81 BPM MUSE SYSTEM Atrial Rate 81 BPM MUSE SYSTEM P-R Interval 226 ms MUSE SYSTEM QRS Duration 96 ms MUSE SYSTEM Q-T Interval 420 ms MUSE SYSTEM QTC Calculated (Bezet) 487 ms MUSE SYSTEM Calculated P Burt 30 degrees MUSE SYSTEM Calculated R Burt -20 degrees MUSE SYSTEM Calculated T Burt -19 degrees MUSE SYSTEM INTERPRETATION Sinus rhythm [...] Oliva MD ECG ORDERABLES Performing Organization Address [facility] de Phone Number MUSE SYSTEM * CARDIAC CATHETERIZATION (02/03/2017 4:26 PM EDT) Anatomical Region Laterality Modality Other Narrative 02/03/2017 4:43 PM EDT ?[facility] ? Cardiac Catheterization/Intervention Report ? Patient Name: Cesar Thompson. ? Procedure Date: 02/03/2017 ? A #: [id number] ? Primary Physician: Lydia Harden ? Case #: [id number] ? File Name: [id number] ? Catheterization Order Number: [id number] ? [facility] ? Final Report [place], [place] ? Patient Name: ? Gilbert D. Thompson ?ID#: ?[id number] ? : ?1935 ? Procedure Date: ? February 03, 2017 ?Case #: ? [id number] ? Room: ? 6 ? Case Physician: [...] patient presented with: non-STEMI (w/i 7 days). [place] ?Cardiovascular Society angina class was IV. This [...] dose administered prior to arrival in the laborer syrup machine. ?Recommend continuing clopidogrel 75 mg PO daily [...] Procedure Note Lydia Harden MD - 08/08/2017 [facility] Cardiac Catheterization/Intervention Report Patient Name: Cesar Thompson Procedure Date: 02/03/2017 A #: [id number] Primary Physician: Lydia Harden Case #: [id number] File Name: [id number] Catheterization Order Number: [id number] [facility] FinalReport [place], [place] Patient Name: Cesar Thompson ID#:[id number] :1935 Procedure Date: February 03, 2017 Case [...] patient presented with: non-STEMI (w/i 7 days). [place] Cardiovascular Society angina class was IV. This [...] The lesion was predilated with a 2.50mm [id number] MM balloon with a maximum inflation pressure [...] dose administered prior to arrival in the laborer syrup machine. Recommend continuing clopidogrel 75 mg PO daily [...] heart catheterization, stent insertion-coronary and angioplasty-coronary. Lydia Haredn M.D. Electronically Signed by: Lydia Harden M.D. Report Finalized: 02/03/2017 16:31 Report Last Ammended: 08/08/2017 10:23 Inder Medley MD CARDIAC CATH ORDERAB LES * (ABNORMAL) Cardiac Enzymes (02/03/2017 3:00 PM EDT) Troponin-T 0.48(H) 0.00 - 0.00 ng/mL [facility] Comment: The 99th percentile for Troponin T is less than 0.01 ng/mL, any detectable cTnT concentration using this assay should be considered elevated. According to the third universal definition of myocardial infarction the following criteria with a clinical presentation consistent with acute myocardial ischemia meets the diagnosis for a myocardial infarction (CO). Detection of a rise and/or fall of cTnT, with at least one value greater than the 99th percentile (> or = 0.01) and with at least one of the following ?? Symptoms of ischemia ?? New or presumed new significant JW-wqhagkt-U wave (ST-T) changes or new left bundle [...] additional sample may be indicated. Reference: Third [place] Definition of Myocardial Infarction. Journal of the [place] College of Cardiology 2012;60:1581-98 Creatine Kinase 305(H) 0 - 200 unit/L [facility] Blood specimen (specimen) 02/03/2017 3:00 PM EDT 02/03/2017 3:22 PM EDT Narrative Resulting Agency Comment Spec In Lab Shoshana Moyer APRN CHEMISTRY ORDERABLES [facility] [place] [address] * TSH (02/03/2017 3:00 PM EDT) Thyroid Stimulating Hormone 1.18 0.27 - 4.20 mlU/ML [facility] Blood specimen (specimen) 02/03/2017 3:00 PM EDT 02/03/2017 3:22 PM EDT Narrative Resulting Agency Comment Spec In Lab Inder Medley MD CHEMISTRY ORDERABLES Performing Organization Address [facility]/ZIP Co de Phone Number [facility] [place] [address] * XR Chest PA & Lateral (Generic) [...] pneumothorax. No pleural effusion. Procedure Note Johan oMe MD - 02/03/2017 EXAMINATION: XR CHEST PA [...] ?EDD Hatch ?(Age): 1935(81y) Med Rec#: ? [id number] ?Sex: ?M ? [place] ? [facility] [place]Ht / Wt: ??175(cm)/85(kg) Pt. Loc: ?Adult Floor ? BSA: ?2.01 Study Date: ?? 02/03/2017 ?Pt. Type: Inpatient Tape: ? Referring: CRISTAL Referring: Inder Medley Reading: Mason Beth ([id number]) It Program Auditor: Sonia Marcial Diagnosis: *ICD-10-PCS Non-ST elevation (NSTEMI) [...] ? Mid-Inferior ?Hypokinetic ? Mid-Inferoseptal ?Akinetic ? [place]-Septal ? Akinetic ? [place]-Anterior ? Akinetic ? [place]-Lateral ?Akinetic ? [place]-Inferior ? Akinetic ? [place]-Tip ?Akinetic ? This report has been electronically signed by: Mason Beth MD ? 02/03/2017 13:42:39 Images reviewed and interpretation verified [facility] Procedure Note Mason Beth MD - 02/03/2017 Procedure: Transthoracic Echocardiogram Patient: EDD Hatch (Age): 1935(81y) Med Rec#: [id number] Sex: M [place] [facility] Ht / Wt: 175(cm)/85(kg) Pt. Loc: Adult Floor BSA: 2.01 Study Date: 02/03/2017 Pt. Type: Inpatient Tape: Referring: GRANTYEISON Referring: Inder Medley Reading: Mason Beth ([id number]) It Program Auditor: Sonia Marcial Diagnosis: *ICD-10-PCS Non-ST elevation (NSTEMI) [...] Hypokinetic Mid-Posterolateral Hypokinetic Mid-Inferior Hypokinetic Mid-Inferoseptal Akinetic [place]-Septal Akinetic [place]-Anterior Akinetic [place]-Lateral Akinetic [place]-Inferior Akinetic [place]-Tip Akinetic This report has been electronically signed by: Mason Beth MD 02/03/2017 13:42:39 Images reviewed and interpretation verified [facility] Inder Medley MD ECHO ORDERABLES * POCT Glucose (02/03/2017 11:50 AM EDT) [facility] Glucose, POC 138 65 - 199 mg/dL [facility] Comment: Supplemental ranges: <140 mg/dL before meals <180 mg/dL all other times of the day Blood specimen (specimen) 02/03/2017 11:50 AM EDT 02/03/2017 11:50 AM EDT Bayron Oliva MD POINT OF CARE TEST O RDERABLES Performing Organization Address [facility] Co de Phone Number [facility] [place] [address] * (ABNORMAL) APTT (02/03/2017 11:50 AM EDT) [facility] Partial Thromboplastin Time 54(H) 25 - 35 sec [facility] Comment: The recommended therapeutic range [...] APRN HEMATOLOGY ORDERABLE S Performing Organization Address [facility]/ZIP Co de Phone Number [facility] [place] [address] * POCT Glucose (02/03/2017 10:13 AM EDT) Glucose, POC 148 65 - 199 mg/dL [facility] Comment: Supplemental ranges: <140 mg/dL before meals <180 mg/dL all other times of the day Blood specimen (specimen) 02/03/2017 10:13 AM EDT 02/03/2017 10:13 AM EDT Inder Medley MD POINT OF CARE TEST O RDERABLES [facility] [place] [address] * (ABNORMAL) Differential, Automated (02/03/2017 9:35 AM EDT) Pathologist [facility] Neutrophil % 68.5 % [facility] Neutrophil Absolute 6.52(H) 1.70 - 6.10 x10(3)/mc L [facility] Lymph % 20.1 % [facility] Lymphocytes Abs 1.9 0.9 - 3.2 x10(3)/mc L [facility] Monocyte % 7.5 % [facility] Monocyte Abs 0.7 0.3 - 0.9 x10(3)/mc L [facility] Eos % 2.9 % [facility] Eosinophils Abs 0.3 0.0 - 0.4 x10(3)/mc L [facility] Basophil % 0.7 % [facility] Baso Absolute 0.1 0.0 - 0.1 x10(3)/mc L [facility] Immature Gran % 0.30 % [facility] Comment: Immature granulocytes(IG's)percentage and absolute count will include metamyelocytes, myelocytes, and promyelocytes. Blood smears from CBCs yielding IG's will be scanned manually for concordance. If this scan disagrees with the automated IG or if promyelocytes are noted, a manual differential will be performed. Immature Gran Absolute 0.03 0.00 - 0.04 x10(3)/mc L [facility] Blood specimen (specimen) 02/03/2017 9:35 AM EDT 02/03/2017 9:40 AM EDT Narrative Resulting Agency Comment Spec In Lab Shoshana Roach King RADHA HEMATOLOGY ORDERABLE S [facility] [place] [address] * Hemogram (02/03/2017 9:35 AM EDT) White Blood Cell 9.5 4.0 - 9.5 x10(3)/[facility] LABORATORY Red Blood Cell 4.99 4.58 - 5.54 x10(6)/[facility] LABORATORY Hemoglobin 15.3 13.7 - 16.5 gm/dL [facility] Hematocrit 44.5 40.5 - 48.5 % [facility] Mean Cell Volume 89.2 82.9 - 93.1 [facility] Mean Cell Hemoglobin 30.7 27.5 - 32.1 pg [facility] Mean Cell Hemoglobin Concentration 34.4 32.0 - 35.7 gm/dL [facility] Platelet 204 145 - 357 x10(3)/[facility] LABORATORY RDW Standard Deviation 37.7 36.0 - 45.0 [facility]ORY RDW coefficient of variation 11.8 11.4 - 13.8 % [facility] Mean Platelet Volume 10.3 7.6 - 12.9 [facility] LABORATORY NRBC% auto 0.0 % [facility] NRBC Absolute 0.000 0.000 - 0.000 x10(3)/[facility] LABORATORY Blood specimen (specimen) 02/03/2017 9:35 AM EDT 02/03/2017 9:40 AM EDT Narrative Resulting Agency Comment Spec In Lab Shoshana J King RADHA HEMATOLOGY ORDERABLE S Performing Organization Address [facility]/ZIP Co de Phone Number [facility] [place] [address] * (ABNORMAL) Cardiac Enzymes (02/03/2017 9:35 AM EDT) Troponin-T 0.31(H) 0.00 - 0.00 ng/mL [facility] Comment: The 99th percentile for Troponin T is less than 0.01 ng/mL, any detectable cTnT concentration using this assay should be considered elevated. According to the third universal definition of myocardial infarction the following criteria with a clinical presentation consistent with acute myocardial ischemia meets the diagnosis for a myocardial infarction (CO). Detection of a rise and/or fall of cTnT, with at least one value greater than the 99th percentile (> or = 0.01) and with at least one of the following ?? Symptoms of ischemia ?? New or presumed new significant YB-zhephad-Y wave (ST-T) changes or new left bundle [...] additional sample may be indicated. Reference: Third [place] Definition of Myocardial Infarction. Journal of the [place] College of Cardiology 2012;60:1581-98 Creatine Kinase 264(H) 0 - 200 unit/L [facility] Blood specimen (specimen) 02/03/2017 9:35 AM EDT 02/03/2017 9:40 AM EDT Narrative Resulting Agency Comment Spec In Lab Shoshana J King RADHA CHEMISTRY ORDERABLES Performing Organization Address [facility]/ZIP Co de Phone Number [facility] [place] [address] * (ABNORMAL) pro-Brain Natriuretic Peptide (02/03/2017 9:35 AM EDT) NT-proBNP 1,411(H) <=450 pg/mL [facility] Blood specimen (specimen) 02/03/2017 9:35 AM EDT 02/03/2017 9:40 AM EDT Narrative Resulting Agency Comment Spec In Lab Shoshana Moyer RADHA CHEMISTRY ORDERABLES Performing Organization Address [facility] Co de Phone Number [facility] [place] [address] * (ABNORMAL) APTT (02/03/2017 9:35 AM EDT) Partial Thromboplastin Time 64(H) 25 - 35 sec [facility] Comment: The recommended therapeutic range [...] Shoshana Roach King RADHA HEMATOLOGY ORDERABLE S Performing Organization Address [facility] de Phone Number [facility] [place] [address] * Prothrombin Time (02/03/2017 9:35 AM EDT) Prothrombin Time 14.1 12.0 - 15.0 sec [facility] Comment: An INR <2.0 indicates [...] International Normalization Ratio 1.0 0.9 - 1.1 [facility] Blood specimen (specimen) 02/03/2017 9:35 AM EDT 02/03/2017 9:40 AM EDT Narrative Resulting Agency Comment Spec In Lab Shoshana Moyer APRN HEMATOLOGY ORDERABLE S [facility] [place] [address] * (ABNORMAL) Basic Metabolic Panel (non-fasting) (02/03/2017 9:35 AM EDT) Glucose 159 65 - 199 mg/dL [facility] Comment:Diabetes: >=200 mg/d L plus symptoms Blood Urea Nitrogen 15 10 - 20 mg/dL [facility] Creatinine 1.19 0.80 - 1.50 mg/dL [facility] Comment: Please note that the pediatric reference intervals supplied above were not validated at [facility]. Results from pediatric patients should be interpreted in conjunction to the patient's age, height and muscle mass. Sodium 140 135 - 145 mmol/L [facility] Potassium 4.0 3.5 - 5.0 mmol/L [facility] Comment: Please note: ??Patients with WBC >100,000 may have falsely elevated Potassium levels. ??For accurate Potassium quantification in these patients send serum separator tube (gold top) for subsequent determinations. ??Contact the Clinical Chemistry Laboratory if there are any questions. Chloride 103 98 - 107 mmol/L [facility] Carbon Dioxide 22 22 - 31 mmol/L [facility] Anion Gap 15 5 - 15 mmol/L [facility] Calcium 9.3 8.5 - 10.5 mg/dL [facility] Est Glomerular Filtration Rate 59(L) >=60 [facility] Comment: This estimated GFR (eGFR) value [...] the following links into your internet browser. [email or web address] Blood specimen (specimen) 02/03/2017 9:35 AM EDT 02/03/2017 9:40 AM EDT Narrative Resulting Agency Comment Spec In Lab Shoshana Moyer APRN CHEMISTRY ORDERABLES Performing Organization Address [facility] Co de Phone Number [facility] [place] [address] * EKG 12 Lead (02/03/2017 9:23 AM EDT) Ventricular rate 71 BPM MUSE SYSTEM Atrial Rate 71 BPM MUSE SYSTEM P-R Interval 236 ms MUSE SYSTEM QRS Duration 96 ms MUSE SYSTEM Q-T Interval 448 ms MUSE SYSTEM QTC Calculated (Bezet) 486 ms MUSE SYSTEM Calculated P Burt -5 degrees MUSE SYSTEM Calculated R Burt -17 degrees MUSE SYSTEM Calculated T Burt 79 degrees MUSE SYSTEM INTERPRETATION Sinus rhythm with 1st degree A-V block Inferior infarct , age undetermined T wave abnormality, consider anterolateral ischemia Abnormal ECG When compared with ECG of 12-APR-2011 07:31, T wave inversion now evident in Anterolateral leads Confirmed by MD Elsie, Rosendo Walker ([id number]) on 02/04/2017 9:15:41 AM MUSE SYSTEM 02/03/2017 9:23 AM EDT 02/04/2017 9:15 AM EDT Shoshana Moyer APRN ECG ORDERABLES Performing Organization Address [facility] Co de Phone Number MUSE SYSTEM documented [...] Fri02/03/17 at 2159, Recovery (Recovery-Hospital Unit) [facility] 02/03/2017 4:57 PM EDT 100 mL/hr 100 [...] Provider: Madhu Forman MD)[id number] (Given - Provider: Mahdu Forman MD) nitroGLYcerin (NITROSTAT) SL tablet 0.4 [...] Routine documented in this encounter Care Teams Manager Applied Relationship Specialty Start Date End Date Arely Moise MD [address] [place] [address] PCP - General Family Medicine 09/16/16 documented as of this encounter
--- OUTSIDE RECORDS SUMMARY | 2023-12-23 16:46 | XMS_ITS | Encounter Summary ---
Author Organization [facility] Address [facility] [place] [address] Care Team Providers Care Etcher Hand Name Role Phone Rolando Zacarias MD Primary Care Provider [phone] Reason for Visit * Reason Comments Follow-up AAA surveillance Encounter Details Date Type Department Care Team (Late st Contact Info) Description 10/22/2011 1:00 PM EDT Follow-[place] [id number] CLINIC, Steven Barahona MD [facility] [place] [address] AAA (abdominal aortic aneurysm) (Primary Dx) Discharge [...] of aortic aneurysm, using Cook Zenith Flex [id number] via right; ipsilateral extension with TFLE 16-56; contralateral extension with TFLE 16-73. Pex: NAD Studies: CTA reveals graft in good position, no leaks, no interval growth of sac Assessment / Plan: Doing well. Follow-up one year with CTA documented in this encounter Plan of Treatment Upcoming Encounters Date Type Department Care Team (Latest Contact Info) Description 01/02/2024 1:30 PM EDT Laboratory Appointment Lab [address] [address] 01/02/2024 3:00 PM EDT Office Visit Neph[place] [address] Adam Costa MD [facility] [place] [address] documented as of this encounter Results * [...] artery remains patent. 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 ??The [place] abdominal aortic aneurysm sac has decreased in [...] artery remains patent. Maximum caliber of the [place] abdominal aortic aneurysm sac has decreased from [...] due theinflow from an ileolumbar artery. The [place] abdominal aortic aneurysm sac has decreased in size. Very early or resolving proximal sigmoid diverticulitis withoutperforation or abscess. Steven Borges MD IMG CT ORDERABLES documented in this encounter Visit Diagnoses Diagnosis AAA (abdominal aortic aneurysm)- Primary Abdominal aneurysm without mention of rupture AAA (abdominal aortic aneurysm) Abdominal aneurysm without mention of rupture documented in this encounter Care Teams Etcher Hand Relationship Specialty Start Date End Date Rolando Zacarias MD PCP - General 04/12/11 09/15/16 documented as of this encounter
--- OUTSIDE RECORDS SUMMARY | 2023-12-23 16:46 | XMS_ITS | Encounter Summary ---
[facility] [address] Care Team Providers Care Automobile T[employer] Builder Name Role Phone Rolando Moise MD Primary Care Provider [phone] Reason for Visit * Auth/Cert Specialty Diagnoses / Procedures Referred By Contac t Referred To Contact Diagnoses NSTEMI (non-ST elevated myocardial infarction) NSTEMI ?CAD Procedures CARDIAC CATHETERIZATION Referral ID Status Reason Start Date Expiration Date Visits Re quested Visits Authorized [id number] 1 1 Encounter Details Date Type Department Care Team (Latest Contact Info) Description 02/03/2017 11:45 AM EDT - 02/03/2017 11:59 PM EDT Hospital Encounter [place] [phone] Discharge Disposition: Home Social History Tobacco Use [...] Take 20 mg by mouth daily. 02/05/2017 Sandwich-3 Fatty Acids-Vitamin E (FISH OIL) 1,000 mg Cap Take by mouth daily. Reported on 09/16/2016 02/05/2017 metFORMIN (GLUCOPHAGE) 500 mg tablet Take 500 mg by mouth 2 times daily (with meals). 11/09/2020 documented as of this encounter Plan of Treatment Upcoming Encounters Date Type Department Care Team (Latest Contact Info) Description 01/02/2024 1:30 PM EDT Laboratory Appointment Lab [address] [place] [address] 01/02/2024 3:00 PM EDT Office Visit [place] [address] Adam Costa MD [facility] [place] [address] documented as of this encounter Procedures Procedure [...] mLs documented in this encounter Care Teams Automobile T[employer] Builder Relationship Specialty Start Date End Date Rolando Moise MD [facility] [place] [address] PCP - General Family Medicine 09/16/16 documented as of this encounter
--- OUTSIDE RECORDS SUMMARY | 2023-12-23 16:47 | XMS_ITS | Encounter Summary ---
Author Organization [facility] Address [facility] [place] [address] Care Team Providers Care Manager Forms Name Role Phone Rolando Zacarias MD Primary Care Provider [phone] Encounter Details Date Type Department Care Team (Latest Contact Info) Description 04/23/2011 2:32 PM EST - 04/23/2011 11:59 PM [facility] Hospital [place] [phone] CLINIC, Steven Barahona MD [facility] [place] [address] AAA (abdominal aortic aneurysm) Discharge Disposition: Home [...] CT Scan on @ ____AM/PM. Per [facility] Policy it is important that you stop [...] out of your body. Thank You, [facility] CT Scan Dept documented in this encounter Plan of Treatment Upcoming Encounters Date Type Department Care Team (Latest Contact Info) Description 01/02/2024 1:30 PM EDT Laboratory Appointment Lab [address] [place] [address] 01/02/2024 3:00 PM EDT Office Visit [place] [phone] Adam Costa MD [facility] [place] [address] documented as of this encounter Procedures Procedure [...] iliac arteries. The greatest dimensions of the [place] aneurysm sac are 7.9 x 5.6 cm. [...] iliac arteries. The greatest dimensions of the [place] aneurysm sac are 7.9 x 5.6cm. On [...] mg documented in this encounter Care Teams Manager Forms Relationship Specialty Start Date End Date Rolando Zacarias MD PCP - General 04/12/11 09/15/16 documented as of this encounter
--- OUTSIDE RECORDS SUMMARY | 2023-12-23 16:47 | XMS_ITS | Encounter Summary ---
Author Organization [facility] Address [facility] [place] [address] Care Team Providers Care Technical Laboratory Asst Name Role Phone Arely Vickers MD Primary Care Provider [phone] Reason for Visit * Reason Comments Abdominal Pain Encounter Details Date Type Department Care Team (Latest Contact Info) Description 04/12/2011 7:04 AM EST - 04/16/2011 1:05 PM [facility] Hospital Encounter [address] [place] [address] Robyn Fowler MD [facility] [address] EM[place] [address] Randy Padilla MD [facility] [address] [place] [address] Steven Borges MD [facility] [place] [address] AAA (abdominal aortic aneurysm) Discharge Disposition: Home [...] For any problems or questions please call [phone] Angela Mujica RN Vascular Nurse Clinician Loretta [...] as of this encounter Progress Notes * Leandar Monreal RN - 04/16/2011 12:51 PM EST [...] yesterday. Will replete K again today. ID: [facility] trending down - patient on Vanc/zosyn for superimposed diverticulitis. Will start PO cipro/flagyl and have him continue for 7 more days. Dispo: Home today. 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 PRIMARY CARE PHYSICIAN: ARELY VICKERS MD [facility] [address] / [facility] [address] POTENTIAL DISCHARGE NEEDS: None anticipated; states can monitor his BP at home PATIENT/FAMILY EDUCATION NEEDS:per discharge summary ANTICIPATED BARRIERS TO DISCHARGE:none TRANSPORTATION @ D/C:radha Willard PLAN: Vascular CRC will continue to monitor progress, follow for continuity of care and assist withdischarge planning while hospitalized * Abhi Dukes, PharmD - 04/14/2011 2:08 PM EST Clinical Pharmacist Note-Vanc Cali Thompson [id number] 1935 Cali Thompson is a 75 y.o. [...] have. Alternately, during off-hours you may call [phone] to contact a pharmacist. ABHI DUKES, JONELLE [...] : UOP adequate, lytes/Cr acceptable, HLIV ID: [facility] up a bit today - patient Vanc/zosyn for superimposed diverticulitis Dispo: Up out of bed today. Will transfer to [facility] today * Etsela Flores RCP - 04/13/2011 5:06 PM EST Patient found on noted settings. SBT done and patient passed and was extubated to 4 lpm NC with no complications. YA * Poli Chowdhury MD - 04/13/2011 3:01 PM EST Cali Thompson [id number] 04/13/2011 04/12/2011 7:04 AM Critical Care Medicine [...] Q12H ??? DISCONTD: ceFAZolin 2 g Intravenous Single End Sewer to OR ??? DISCONTD: vancomycin 1 g Intravenous Q12H No Known Allergies EXAM: Temp: [35.7 ??C (96.3 ??F)-37.2 ??C (99 ??F)] Heart Rate: [47-80] Resp: [10-19] BP: (104)/(61) SpO2: [91 %-98 %] I/O last 3 completed shifts: In: 73217 [I.V.:94756] Out: 2300 [Urine:1700; Blood:600] I/O this shift: [...] 97 % SpO2: [91 %-98 %] SIMV/PS [id number] PEEP 5 FiO2 40% Last ABG 7.36/35/70/19 Intake/Output Summary (Last 24 hours) at 04/13/11 1155 Last data filed at 04/13/11 1000 Gross per 24 hour Intake 66475 ml Output 2775 ml Net 9784 ml [...] PM EST Clinical Pharmacist Note-Vanc Cali Thompson [id number] 1935 Cali Thompson is a 75 y.o. [...] have. Alternately, during off-hours you may call [phone] to contact a pharmacist. JIA VICTORIA PHARMD Pager [phone] * Chris Johnson - 04/12/2011 8:28 PM [...] at 04/12/111945 Gross per 24 hour Intake 67703 ml Output 1755 ml Net 8949 ml [...] Gill MD - 04/12/2011 8:08 AM EST [facility] staff procedure note: Under sterile cond RIGHT radial a-line placed for hemodynamic monitoring. Hand intact, excellent waveform. documented in this encounter H&P Notes * Poli Chowdhury MD - 04/12/2011 8:22 AM EST Cali Thompson [id number] 04/12/2011 04/12/2011 7:04 AM Critical Care Medicine [...] Once ??? DISCONTD: ceFAZolin 2 g Intravenous Single End Sewer to OR No Known Allergies EXAM: Temp: [...] prior known history of AAA, presents to [facility] with c/o abdominal pain for [...] urgently once medically optimized, [facility]: I saw and evaluated Mr. [...] 04/17/2011 11:15 AM ESTAssociated Order(s): SCAN DOC: BRIDGE GAME DIRECTOR documented in this encounter ED Notes * [...] current pain regimen. Encouraged to notify staffing specialist when inneed of pain medication. Continue to [...] Joan Vail - 04/12/2011 4:41 PM EST [facility] Operative Note Patient Name: Cali Thompson : [id number] MR#: [id number] Case Date: 04/12/2011 Surgeon: Surgeon(s) and Role: * STEVEN BORGES MD - Primary * JOAN VAIL MD - Fellow Preoperative diagnosis: symptomatic infrarenal aortic aneurysm Postoperative diagnosis: same Procedure(s): Bilateral femoral arterial exposures Endovascular repair of aortic aneurysm, using kabukuith Flex [id number] via right; ipsilateralextension with TFLE 16-56; contralateral [...] point on the right we advanced a Pearl.com device type [id number], and this was advanced up to the [...] the delivery system was removed, and a 12-Finnish White Bird dry seal was advanced. On the right [...] removed the delivery system and advanced a 20-Finnish White Bird dry seal up the right side. We [...] Operative Note Patient Name: Cali Thompson : [id number] MR#: [id number] Case Date: 04/12/2011 Surgeon: Surgeon(s) and Role: * STEVEN BORGES MD - Primary * JOAN VAIL MD - Fellow Preoperative diagnosis: symptomatic infrarenal aortic aneurysm Postoperative diagnosis: same Procedure(s): Bilateral femoral arterial exposures Endovascular repair of aortic aneurysm, using Pearl.com Flex [id number] via right; ipsilateralextension with TFLE 16-56; contralateral [...] exposures Endovascular repair of aortic aneurysm, using Pearl.com Flex [id number] via right; ipsilateralextension with TFLE 16-56; contralateral extension with TFLE 16-73 History of Presentation: 75 year old male without prior known history of AAA, presented to [facility] with complaints of abdominal pain [...] For any problems or questions please call [phone] Angela Mujica RN Vascular Nurse Clinician Loretta Matthews RN Vascular Nurse Clinician Future Appointments and Orders Future Orders Please Complete By Expires CT abdomen & pelvis with contrast [[id number] Custom] 05/13/11 04/12/12 Process Instructions: Scheduling Instructions: [...] to the ED as a transfer from [facility] vascular with a dx of AAA. Pt [...] bedside upon pt arrival. Pt placed on ekg monitor, labs obtained and sent. Pt c/o [...] 1:30 PM EDT Laboratory Appointment Lab [address] [place] [address] 01/02/2024 3:00 PM EDT Office Visit [place] [address] Adam Costa MD [facility] [place] [address] documented as of this encounter Procedures Procedure [...] IMPLANTABLE DEVICES SCAN 04/17/2011 11:15 AM EST BRIDGE GAME DIRECTOR SCAN 04/17/2011 11:15 AM EST POCT GLUCOSE [...] SCAN EXT O RDR/RSLT * SCAN DOC: BRIDGE GAME DIRECTOR (04/17/2011 11:15 AM EST) Anatomical Region Laterality Modality Other Narrative 04/17/2011 3:20 PM EST Procedure Note Provider, Scanning - 04/17/2011 11:15 AM EST Scanning Provider MEDIA MGR SCAN EXT O RDR/RSLT * (ABNORMAL) POCT GLUCOSE LAB USE ONLY (04/16/2011 10:58 AM EST) Glucose, POC 257(H) 60 - 199 mg/dL [facility] Comment: Supplemental ranges: <110 mg/dL before meals <200 mg/dL all other times of the day Blood specimen (specimen) 04/16/2011 10:58 AM EST 04/16/2011 10:58 AM EST Randy Padilla MD POINT OF CARE TEST O BHASKAR Performing Organization Address [facility] Co de Phone Number [facility] Server [facility] * POCT GLUCOSE LAB USE ONLY (04/16/2011 7:21 AM EST) Glucose, POC 181 60 - 199 mg/dL [facility] Server [facility]ensityHU [facility] Comment: Supplemental ranges: <110 mg/dL before meals [...] Padilla MD CHEMISTRY ORDERABLES Performing Organization Address [facility] Co de Phone [...] CARE TEST O BHASKAR Performing Organization Address [facility] de Phone Number [facility] * POCT GLUCOSE LAB USE ONLY (04/15/2011 4:07 PM EST) Glucose, POC 162 60 - 199 mg/dL [facility] Comment: Supplemental ranges: <110 mg/dL before meals <200 mg/dL all other times of the day Blood specimen (specimen) 04/15/2011 4:07 PM EST 04/15/2011 4:07 PM EST Randy Padilla MD POINT OF CARE TEST O BHASKAR Performing Organization Address [facility] Co de Phone Number [facility] * POCT GLUCOSE LAB USE ONLY (04/15/2011 12:46 PM EST) Glucose, POC 157 60 - 199 mg/dL [facility] Comment: Supplemental ranges: <110 mg/dL before meals <200 mg/dL all other times of the day Blood specimen (specimen) 04/15/2011 12:46 PM EST 04/15/2011 12:46 PM EST Randy Padilla MD POINT OF CARE TEST O BHASKAR Performing Organization Address [facility] Co de Phone Number [facility] * POCT GLUCOSE LAB USE ONLY (04/15/2011 8:34 AM EST) Glucose, POC 173 60 - 199 mg/dL [facility] Comment: Supplemental ranges: <110 mg/dL before meals [...] EST Randy Padilla MD HEMATOLOGY ORDERABLE S [facility] MILLENNIUM * (ABNORMAL) Basic Metabolic Panel (non-fasting) (04/15/2011 6:05 AM EST) Pathologist [facility] Glucose 160 60 - 199 mg/dL CERNER [...] Padilla MD CHEMISTRY ORDERABLES Performing Organization Address [facility] Phone Number [facility] [employer] * POCT GLUCOSE LAB USE ONLY (04/14/2011 8:46 PM EST) Glucose, POC 156 60 - 199 mg/dL [facility] Comment: Supplemental ranges: <110 mg/dL before meals <200 mg/dL all other times of the day Blood specimen (specimen) 04/14/2011 8:46 PM EST 04/14/2011 8:46 PM EST Randy Padilla MD POINT OF CARE TEST O RDERABLES Performing Organization Address [facility] Phone Number [facility] * POCT GLUCOSE LAB USE ONLY (04/14/2011 5:36 PM EST) Glucose, POC 159 60 - 199 mg/dL [facility] Comment: Supplemental ranges: <110 mg/dL before meals <200 mg/dL all other times of the day Blood specimen (specimen) 04/14/2011 5:36 PM EST 04/14/2011 5:36 PM EST Randy Padilla MD POINT OF CARE TEST O RDERABLES Performing Organization Address [facility] Phone Number [facility] [employer] * (ABNORMAL) POCT GLUCOSE LAB USE ONLY (04/14/2011 1:31 PM EST) Glucose, POC 201(H) 60 - 199 mg/dL [facility] Comment: Supplemental ranges: <110 mg/dL before meals <200 mg/dL all other times of the day Blood specimen (specimen) 04/14/2011 1:31 PM EST 04/14/2011 1:31 PM EST Randy Padilla MD POINT OF CARE TEST O RDERABLES Performing Organization Address [facility] Number [facility] * VANCOMYCIN, TROUGH (04/14/2011 10:30 AM EST) Vancomycin, Trough 14.2 mg/L Anna [facility] Comment: Therapeutic range for complicated infections such [...] Padilla MD CHEMISTRY ORDERABLES Performing Organization Address [facility] Phone Number [facility] * POCT GLUCOSE LAB USE ONLY (04/14/2011 8:17 AM EST) Glucose, POC 171 60 - 199 mg/dL [facility] Comment: Supplemental ranges: <110 mg/dL before meals <200 mg/dL all other times of the day Blood specimen (specimen) 04/14/2011 8:17 AM EST 04/14/2011 8:17 AM EST Randy Padilla MD POINT OF CARE TEST O RDERABLES Performing Organization Address [facility] Phone Number [facility] * (ABNORMAL) DIFFERENTIAL, AUTOMATED (04/14/2011 8:00 AM EST) Neutrophil % 78.6(H) 34.0 - 71.0 % [facility] Neutrophil Absolute 14.46(H) 1.50 - 6.30 x10(3)/mc [...] MD HEMATOLOGY ORDERABLE S Performing Organization Address [facility] Co de Phone Number CERMARTI MILLEN[facility] * LACTIC ACID, PLASMA (04/14/2011 8:00 AM EST) Lactic Acid 1.3 0.5 - 2.2 mmol/L CERNER MILLENNIUM Blood specimen (specimen) 04/14/2011 8:00 AM EST 04/14/2011 8:31 PM EST Randy Padilla MD CHEMISTRY ORDERABLES Performing Organization Address [facility] Co de Phone Number [facility]ER[facility]ILL[facility] * [...] EST Randy Padilla MD HEMATOLOGY ORDERABLE S [facility] GISELAENNIUM * (ABNORMAL) BASIC METABOLIC [...] EST) Potassium 3.4(L) 3.5 - 5.0 mmol/L [facility] Comment: Please note: ??Patients with WBC >100,000 may have falsely elevated Potassium levels. ??For accurate Potassium quantification in these patients send serum separator tube (gold top) for subsequent determinations. ??Contact the Clinical Chemistry Laboratory if there are any questions. Blood specimen (specimen) 04/13/2011 9:47 PM EST 04/14/2011 7:16 PM EST Randy Padilla MD CHEMISTRY ORDERABLES Performing Organization Address [facility] Phone Number [facility] * POCT GLUCOSE LAB USE ONLY (04/13/2011 8:22 PM EST) Glucose, POC 167 60 - 199 mg/dL [facility] Comment: Supplemental ranges: <110 mg/dL before meals <200 mg/dL all other times of the day Blood specimen (specimen) 04/13/2011 8:22 PM EST 04/13/2011 8:22 PM EST Randy Padilla MD POINT OF CARE TEST O RDJACKIE Performing Organization Address [facility] Phone Number [facility] * POCT GLUCOSE LAB USE ONLY (04/13/2011 5:58 PM EST) Glucose, POC 164 60 - 199 mg/dL [facility] Comment: Supplemental ranges: <110 mg/dL before meals <200 mg/dL all other times of the day Blood specimen (specimen) 04/13/2011 5:58 PM EST 04/13/2011 5:58 PM EST Randy Padilla MD POINT OF CARE TEST O RDERAJAZZY Performing Organization Address [facility] Phone Number [facility] * (ABNORMAL) BLOOD GAS 2 ARTERIAL (04/13/2011 5:53 PM EST) pH, Arterial 7.37 [facility] PCO2, Arterial 30(L) mmHg CERNE R MILLENNIUM PO2, Arterial 79(L) mmHg CERNER MILLENNIUM Bicarbonate, Arterial 16.8(L) mmol/L CERNER MILLENNIUM Base Excess, Arterial -8.4(L) mmol/L CERNER MILLENNIUM Hgb Blood Gas 11.5(L) gm/dL CERNER MILLENNIUM Comment: Total Hemoglobin (in gm/dL) ?Based on [facility] Hematology ranges: ?Age ?Reference Range Less than [...] CL Whole Blood 117(H) mmol/L [facility] Gluc Whole Bld 140 mg/dL [facility] Comment:Diabetes: >=200 mg/d L plus symptoms. Flow Art 4.0 LPM [facility] Blood specimen (specimen) 04/13/2011 5:53 PM EST 04/13/2011 5:53 PM EST Randy Padilla MD POINT OF CARE TEST O RDERAJAZZY Performing Organization Address [facility] Phone Number [facility] * Lactic acid, plasma (04/13/2011 5:30 PM EST) Lactic Acid 1.8 0.5 - 2.2 mmol/L [facility] Blood specimen (specimen) 04/13/2011 5:30 PM EST 04/14/2011 7:25 PM EST Randy Padilla MD CHEMISTRY ORDERABLES Performing Organization Address [facility] Phone Number [facility] * POCT GLUCOSE LAB USE ONLY (04/13/2011 1:08 PM EST) Glucose, POC 117 60 - 199 mg/dL [facility] Comment: Supplemental ranges: <110 mg/dL before meals <200 mg/dL all other times of the day Blood specimen (specimen) 04/13/2011 1:08 PM EST 04/13/2011 1:08 PM EST Randy Padilla MD POINT OF CARE TEST O RDERABLES Performing Organization Address [facility] Phone Number [facility] * (ABNORMAL) BLOOD GAS 2 ARTERIAL (04/13/2011 12:54 PM EST) pH, Arterial 7.40 CERNER MILLENNIUM PCO2, Arterial 28(L) mmHg CERNE R MILLENNIUM PO2, Arterial 89 mmHg CERNER MILLENNIUM Bicarbonate, Arterial 16.9(L) mmol/L CERNER MILLENNIUM Base Excess, Arterial -7.9(L) mmol/L CERNER MILLENNIUM Hgb Blood Gas 10.6(L) gm/dL CERNER MILLENNIUM Comment: Total Hemoglobin (in gm/dL) ?Based on [facility] Hematology ranges: ?Age ?Reference Range Less than [...] al) mmol/L CERNER MILLENNIUM Comment: Noted by musical instruments assembler. Please note: Patients with WBC >100,000 may [...] CARE TEST O RDERAJAZZY Performing Organization Address [facility] de Phone Number [facility]EL[facility] * Lactic acid, plasma (04/13/2011 12:45 PM EST) Lactic Acid 1.9 0.5 - 2.2 mmol/L [facility] MILLENNIUM Blood specimen (specimen) 04/13/2011 12:45 PM EST 04/14/2011 7:19 PM EST Randy Padilla MD CHEMISTRY ORDERABLES Performing Organization Address [facility] de Phone Number [facility]ELAH[facility] * POCT GLUCOSE LAB USE ONLY (04/13/2011 8:37 AM EST) Glucose, POC 128 60 - 199 mg/dL [facility] MILLENNIUM Comment: Supplemental ranges: <110 mg/dL before meals <200 mg/dL all other times of the day Blood specimen (specimen) 04/13/2011 8:37 AM EST 04/13/2011 8:37 AM EST Randy Padilla MD POINT OF CARE TEST O RDERABLES Performing Organization Address [facility] Co de Phone Number [facility]ELAHU [facility] * (ABNORMAL) BLOOD GAS 2 ARTERIAL (04/13/2011 8:29 AM EST) pH, Arterial 7.38 CERNER MILLENNIUM PCO2, Arterial 28(L) mmHg CERNE R MILLENNIUM PO2, Arterial 78(L) mmHg CERNER MILLENNIUM Bicarbonate, Arterial 15.7(L) mmol/L CERNER MILLENNIUM Base Excess, Arterial -9.5(L) mmol/L CERNER MILLENNIUM Hgb Blood Gas 10.2(L) gm/dL CERNER MILLENNIUM Comment: Total Hemoglobin (in gm/dL) ?Based on [facility] Hematology ranges: ?Age ?Reference Range Less than [...] al) mmol/L CERNER MILLENNIUM Comment: noted by street cleaning equipment operator Please note: Patients with WBC >100,000 may have falsely elevated Potassium levels. Contact the Clinical Chemistry Laboratory if there are any questions. ICa Whole Blood 0.91(Criti juan manuel) mmol/L CERNER MILLENNIUM Comment: noted by street cleaning equipment operator Reference Ranges: ?? < 19 yrs: [...] CARE TEST O RDERABLES Performing Organization Address [facility] de Phone Number CERNER MILLENNIUM * (ABNORMAL) Lactic acid, plasma (04/13/2011 5:47 AM EST) Lactic Acid 2.3(H) 0.5 - 2.2 mmol/L CERNER MILLENNIUM Blood specimen (specimen) 04/13/2011 5:47 AM EST 04/13/2011 5:55 AM EST Randy Padilla MD CHEMISTRY ORDERABLES Performing Organization Address [facility] Co de Phone [...] Comment: Total Hemoglobin (in gm/dL) ?Based on [facility] Hematology ranges: ?Age ?Reference Range Less than [...] MD HEMATOLOGY ORDERABLE S Performing Organization Address [facility] Phone Number DONNIE JUNIORIUM * APTT (04/13/2011 4:00 AM EST) Partial Thromboplastin Time 27 25 - 37 sec DONNIE MILLENNIUM Comment: Recommended therapeutic PTT range for full dose unfractionated heparin is 80-114 seconds. Blood specimen (specimen) 04/13/2011 4:00 AM EST 04/13/2011 4:10 AM EST Robyn Fowler MD HEMATOLOGY ORDERABLE S Performing Organization Address [facility] Phone Number DONNIE DIETZ * (ABNORMAL) Prothrombin Time (04/13/2011 4:00 AM EST) Prothrombin Time 14.8(H) 12.3 - 14.7 sec [facility] Comment: [facility] Transfusion Committee Guidelines: INR less than 2.0, [...] MD HEMATOLOGY ORDERABLE S Performing Organization Address [facility] Phone Number DONNIE DIETZ * (ABNORMAL) Basic Metabolic Panel (non-fasting) (04/13/2011 4:00 AM EST) Glucose 158 60 - 199 mg/dL [facility] MILLENNIUM Comment:Diabetes: >=200 mg/d L plus symptoms [...] Fowler MD CHEMISTRY ORDERABLES Performing Organization Address [facility] Co de Phone [...] MD HEMATOLOGY ORDERABLE S Performing Organization Address [facility] de Phone Number DONNIE DIETZ * XR [...] Comment: Total Hemoglobin (in gm/dL) ?Based on [facility] Hematology ranges: ?Age ?Reference Range Less than [...] CARE TEST O RDERABLES Performing Organization Address [facility] Phone Number [facility]ELAHU [facility] * Lactic acid, plasma (04/12/2011 11:55 PM EST) Lactic Acid 1.8 0.5 - 2.2 mmol/L [facility] Comment:result rechecked-llu Blood specimen (specimen) 04/12/2011 11:55 PM EST 04/13/2011 12:04 AM EST Randy Padilla MD CHEMISTRY ORDERABLES Performing Organization Address [facility] Phone Number [facility]ISELAHU [facility] * POCT GLUCOSE LAB USE ONLY (04/12/2011 8:41 PM EST) Glucose, POC 129 60 - 199 mg/dL [facility] Comment: Supplemental ranges: <110 mg/dL before meals <200 mg/dL all other times of the day Blood specimen (specimen) 04/12/2011 8:41 PM EST 04/12/2011 8:41 PM EST Randy Padilla MD POINT OF CARE TEST O RDERAJAZZY Performing Organization Address [facility] Phone Number [facility] * (ABNORMAL) BLOOD GAS 2 ARTERIAL (04/12/2011 8:05 PM EST) pH, Arterial 7.37 7.35 - 7.45 [facility] MILLENNIUM PCO2, Arterial 35 35 - 45 mmHg [facility] MILLENNIUM PO2, Arterial 72(L) 85 - 104 mmHg [facility] MILLENNIUM Bicarbonate, Arterial 19.6(L) 20.0 - 26.0 mmol/L CERNER MILLENNIUM Base Excess, Arterial -5.8(L) -3.0 - 3.0 mmol/L CERNER MILLENNIUM Hgb Blood Gas 12.0(L) 13.7 - 17.5 gm/dL CERNER MILLENNIUM Comment: Total Hemoglobin (in gm/dL) ?Based on [facility] Hematology ranges: ?Age ?Reference Range Less than [...] MD HEMATOLOGY ORDERABLE S Performing Organization Address [facility] Co de Phone Number CERNER MILLENNIUM * (ABNORMAL) Lactic acid, plasma (04/12/2011 5:25 PM EST) Lactic Acid 4.5(H) 0.5 - 2.2 mmol/L CERNER MILLENNIUM Blood specimen (specimen) 04/12/2011 5:25 PM EST 04/12/2011 5:40 PM EST Randy Padilla MD CHEMISTRY ORDERABLES Performing Organization Address [facility] Co de Phone [...] 7.29(Criti juan manuel) CERNER MILLENNIUM Comment:Noted by musical instruments assembler. PCO2, Arterial 41 mmHg CERNE R MILLENNIUM PO2, Arterial 74(L) mmHg CERNER MILLENNIUM Bicarbonate, Arterial 19.6(L) mmol/L CERNER MILLENNIUM Base Excess, Arterial -6.9(L) mmol/L CERNER MILLENNIUM Hgb Blood Gas 13.0(L) gm/dL CERNER MILLENNIUM Comment: Total Hemoglobin (in gm/dL) ?Based on [facility] Hematology ranges: ?Age ?Reference Range Less than [...] MD POINT OF CARE TEST O BHASKAR [facility] * (ABNORMAL) POCT GLUCOSE LAB USE ONLY (04/12/2011 3:49 PM EST) Glucose, POC 217(H) 60 - 199 mg/dL [facility] Comment: Supplemental ranges: <110 mg/dL before meals <200 mg/dL all other times of the day Blood specimen (specimen) 04/12/2011 3:49 PM EST 04/12/2011 3:49 PM EST Randy Padilla MD POINT OF CARE TEST O BHASKAR Performing Organization Address [facility] Co de Phone Number [facility] * (ABNORMAL) BLOOD GAS ARTERIAL (04/12/2011 3:10 [...] Comment: Total Hemoglobin (in gm/dL) ?Based on [facility] Hematology ranges: ?Age ?Reference Range Less than [...] Padilla MD CHEMISTRY ORDERABLES Performing Organization Address [facility] Phone Number DONNIE JUNIORIUM * POCT GLUCOSE LAB USE ONLY (04/12/2011 2:57 PM EST) Glucose, POC 198 60 - 199 mg/dL [facility] Comment: Supplemental ranges: <110 mg/dL before meals <200 mg/dL all other times of the day Blood specimen (specimen) 04/12/2011 2:57 PM EST 04/12/2011 2:57 PM EST Randy Padilla MD POINT OF CARE TEST O RDERABLES Performing Organization Address [facility] Phone Number DONNIE HIGGINSENNIUM * KAUR HOLD (04/12/2011 2:55 PM EST) Kaur Hold Sample in lab. DONNIE HIGGINSENNIUM Blood specimen (specimen) 04/12/2011 2:55 PM EST 04/12/2011 3:30 PM EST Randy Padilla MD CHEMISTRY ORDERABLES Performing Organization Address [facility] Phone Number DONNIE HIGGINSENNIUM * (ABNORMAL) Hepatic Function Panel (04/12/2011 2:55 PM EST) Protein, Total 4.6(L) 6.4 - 8.3 gm/dL CERNER MILLENNIUM Albumin 2.7(L) 3.2 - 5.2 gm/dL CERNER MILLENNIUM Aspartate Aminotransferase 28 0 - 39 unit/L CERNER MILLENNIUM Alanine Aminotransferase 42 0 - 55 unit/L CERNER MILLENNIUM Alkaline Phosphatase 62 40 - 120 unit/L [facility] MILL[facility]UM Bilirubin, Total 0.3 0.2 - 1.3 mg/dL CERNER MILLENNIUM Bilirubin, Direct 0.1 0.0 - 0.3 mg/dL CERNER MILLENNIUM Blood specimen (specimen) 04/12/2011 2:55 PM EST 04/12/2011 3:22 PM EST Randy Padilla MD CHEMISTRY ORDERABLES Performing Organization Address [facility] Phone Number DONNIE JUNIORIUM * (ABNORMAL) Phosphorus (04/12/2011 2:55 PM EST) Phosphorus 4.6(H) 2.5 - 4.5 mg/dL DONNIE JUNIORIUM Blood specimen (specimen) 04/12/2011 2:55 PM EST 04/12/2011 3:22 PM EST Randy Padilla MD CHEMISTRY ORDERABLES Performing Organization Address [facility] Co [place] Phone Number [facility] J LUIS * (ABNORMAL) Magnesium (04/12/2011 2:55 PM EST) Magnesium 0.54(L) 0.69 - 1.07 mmol/L DONNIE JUNIORIUM Blood specimen (specimen) 04/12/2011 2:55 PM EST 04/12/2011 3:22 PM EST Randy Padilla MD CHEMISTRY ORDERABLES Performing Organization Address [facility] Phone Number DONNIE DIETZ * (ABNORMAL) Prothrombin Time (04/12/2011 2:55 PM EST) Prothrombin Time 15.8(H) 12.3 - 14.7 sec [facility] Comment: [facility] Transfusion Committee Guidelines: INR less than 2.0, [...] MD HEMATOLOGY ORDERABLE S Performing Organization Address City/[facility]/ZIP Co de Phone Number DONNIE HIGGINSEQOIUM * APTT (04/12/2011 2:55 PM EST) Partial Thromboplastin Time 32 25 - 37 sec CERNER MILLENNIUM Comment: Recommended therapeutic PTT range for full dose unfractionated heparin is 80-114 seconds. Blood specimen (specimen) 04/12/2011 2:55 PM EST 04/12/2011 3:22 PM EST Randy Padilla MD HEMATOLOGY ORDERABLE S Performing Organization Address [facility] Co de Phone Number DONNIE JUNIORIUM * [...] PM EST Randy Padilla MD CHEMISTRY ORDERABLES [facility] * (ABNORMAL) BLOOD GAS 2 ARTERIAL (04/12/2011 2:06 PM EST) pH, Arterial 7.21(Criti juan manuel) CERNER MILLENNIUM Comment:Noted by musical instruments assembler. PCO2, Arterial 41 mmHg CERNE R MILLENNIUM PO2, Arterial 73(L) mmHg CERNER MILLENNIUM Bicarbonate, Arterial 16.1(L) mmol/L CERNER MILLENNIUM Base Excess, Arterial -11.7(L) mmol/L CERNER MILLENNIUM Hgb Blood Gas 12.4(L) gm/dL CERNER MILLENNIUM Comment: Total Hemoglobin (in gm/dL) ?Based on [facility] Hematology ranges: ?Age ?Reference Range Less than [...] 7.20(Criti juan manuel) CERNER MILLENNIUM Comment:Noted by musical instruments assembler. PCO2, Arterial 48(H) mmHg CERNE R MILLENNIUM PO2, Arterial 109(H) mmHg CERNER MILLENNIUM Bicarbonate, Arterial 18.5(L) mmol/L CERNER MILLENNIUM Base Excess, Arterial -9.5(L) mmol/L CERNER MILLENNIUM Hgb Blood Gas 13.0(L) gm/dL CERNER MILLENNIUM Comment: Total Hemoglobin (in gm/dL) ?Based on [facility] Hematology ranges: ?Age ?Reference Range Less than [...] MD POINT OF CARE TEST O BHASKAR [facility] * (ABNORMAL) POCT GLUCOSE LAB USE ONLY (04/12/2011 12:34 PM EST) Glucose, POC 207(H) 60 - 199 mg/dL CERNER MILLENNIUM Comment: Supplemental ranges: <110 mg/dL before meals <200 mg/dL all other times of the day Blood specimen (specimen) 04/12/2011 12:34 PM EST 04/12/2011 12:34 PM EST Randy Padilla MD POINT OF CARE TEST O BHASKAR [facility] Server DensityENNIUM * (ABNORMAL) BLOOD GAS 2 ARTERIAL (04/12/2011 11:27 AM EST) pH, Arterial 7.38 CERNER MILLENNIUM PCO2, Arterial 35 mmHg CERNE R MILLENNIUM PO2, Arterial 96 mmHg CERNER MILLENNIUM Bicarbonate, Arterial 20.6 mmol/L CERNER MILLENNIUM Base Excess, Arterial -4.5(L) mmol/L CERNER MILLENNIUM Hgb Blood Gas 15.2 gm/dL CERNER MILLENNIUM Comment: Total Hemoglobin (in gm/dL) ?Based on [facility] Hematology ranges: ?Age ?Reference Range Less than [...] CARE TEST O RDERAJAZZY Performing Organization Address [facility] de Phone Number CERMARTI HIGGINSENNIUM * (ABNORMAL) POCT GLUCOSE LAB USE ONLY (04/12/2011 9:53 AM EST) Glucose, POC 286(H) 60 - 199 mg/dL CERNER MILLENNIUM Comment: Supplemental ranges: <110 mg/dL before meals <200 mg/dL all other times of the day Blood specimen (specimen) 04/12/2011 9:53 AM EST 04/12/2011 9:53 AM EST Randy Padilla MD POINT OF CARE TEST O RDERAJAZZY Performing Organization Address [facility] de Phone Number DONNIE JUNIORIUM * ANTIBODY SCREEN (04/12/2011 8:25 AM EST) Ab Screen Interp Negative CERNER MILLENNIUM Expires at [phone] on: [id number] CERNER MILLENNIUM Blood specimen (specimen) 04/12/2011 8:25 AM EST 04/12/2011 8:38 AM EST Erik Gill MD BLOOD BANK LAB ORDER BRIANNE Performing Organization Address [facility] de Phone Number DONNIE JUNIORIUM * ABO/RH TYPING (04/12/2011 8:25 AM EST) ABORH Type O Pos DONINE DIETZ Blood specimen (specimen) 04/12/2011 8:25 AM EST 04/12/2011 8:38 AM EST Erik Gill MD BLOOD BANK LAB ORDER BRIANNE Performing Organization Address [facility] de Phone Number DONNIE DIETZ * Green Tube HOLD (04/12/2011 8:25 AM EST) Green Hold Sample in lab. DONNIE DIETZ Blood specimen (specimen) 04/12/2011 8:25 AM EST 04/12/2011 8:38 AM EST Erik Gill MD CHEMISTRY ORDERABLES Performing Organization Address [facility] de Phone Number DONNIE DIETZ * Lavender Tube HOLD (04/12/2011 8:25 AM EST) Lavender Hold Sample in lab. DONNIE DIETZ Blood specimen (specimen) 04/12/2011 8:25 AM EST 04/12/2011 8:38 AM EST Erik Gill MD HEMATOLOGY ORDERABLE S Performing Organization Address [facility] Phone Number DONNIE DIETZ * XR CHEST [...] (Bezet) 450 ms MUSE SYSTEM Calculated P [place] 33 degrees MUSE SYSTEM Calculated R [place] 50 degrees MUSE SYSTEM Calculated T [place] 66 degrees MUSE SYSTEM INTERPRETATION Sinus rhythm [...] THOMPSON ?Ordered By: ROBYN FOWLER ? MR#: [id number] ?LOC: ??ICUN ? /Sex: ?? 7 (75 years), ? Male ? PROCEDURE: Urine Culture ?SOURCE: U [facility] ? COLLECTED: 04/12/2011 07:26 ? STARTED: 04/12/2011 08:10 ? FINAL REPORT ? Final Report ? Verified: 06:39 ? No growth (Less than 1,000 cfu/ml). ? ____ CERNER MILLENNIUM Urine specimen obtained via straight catheter (specimen) 04/12/2011 7:26 AM EST 04/12/2011 8:10 AM EST Robyn Fowler MD MICROBIOLOGY - GENER AL ORDERABLES Performing Organization Address City/[facility] Co de Phone Number [facility] MILLENNIUM * (ABNORMAL) Urinalysis with microscopic (04/12/2011 [...] Urine Dipstick Clear Clear CERNER MILLENNIUM Specific [place] Urine Automated 1.021 1.002 - 1.030 CERNER [...] Fowler MD CHEMISTRY ORDERABLES Performing Organization Address [facility] de Phone Number [facility]IORNOV[facility] * Troponin T (04/12/2011 7:15 AM EST) Troponin-T <0.03 <=0.03 ng/mL [facility] Comment: 0.03 ng/mL: Represents the 99th percentile upper reference limit for normals. >0.03 ng/mL: Elevated cardiac troponin T level indicative of myocardial damage. Diagnosis of acute, evolving or recent [place] requires a typical rise and gradual fall [...] consensus document of the Joint Society of Cardiology/French College of Cardiology Committee for the redefinition of myocardial infarction. Journal of the [employer] College of Cardiology 2000; 36: 959-969] Blood specimen (specimen) 04/12/2011 7:15 AM EST 04/12/2011 7:34 AM EST Robyn Fowler MD CHEMISTRY ORDERABLES Performing Organization Address [facility] de Phone Number [facility] * APTT (04/12/2011 7:15 AM EST) Partial Thromboplastin Time 28 25 - 37 sec [facility] Comment: Recommended therapeutic PTT range for full dose unfractionated heparin is 80-114 seconds. Blood specimen (specimen) 04/12/2011 7:15 AM EST 04/12/2011 7:34 AM EST Robyn Fowler MD HEMATOLOGY ORDERABLE S Performing Organization Address [facility] Co de Phone Number [facility] * Prothrombin Time (04/12/2011 7:15 AM EST) Prothrombin Time 13.2 12.3 - 14.7 sec [facility] Comment: [facility] Transfusion Committee Guidelines: INR less than 2.0, PTT less than OR equal to 43.5 seconds, or Fibrinogen greater than or equal to 100 mg/dl indicate adequate procoagulant activity for hemostasis in patients without underlying bleeding disorders. International Normalization Ratio 1.0 0.9 - 1.1 [facility] Blood specimen (specimen) 04/12/2011 7:15 AM EST 04/12/2011 7:34 AM EST Robyn Fowler MD HEMATOLOGY ORDERABLE S Performing Organization Address [facility] Co [place] Phone Number [facility] * (ABNORMAL) Glucose, random (04/12/2011 7:15 AM EST) Glucose 299(H) 60 - 199 mg/dL [facility] Comment:Diabetes: >=200 mg/d L plus symptoms Blood specimen (specimen) 04/12/2011 7:15 AM EST 04/12/2011 7:34 AM EST Robyn Fowler MD CHEMISTRY ORDERABLES Performing Organization Address [facility] Phone Number [facility] * Creatinine, serum (04/12/2011 7:15 AM EST) Creatinine 0.98 0.80 - 1.50 mg/dL [facility] Est Glomerular Filtration Rate >60 >=60 [facility] Comment: The National Kidney Disease Education Program [...] Fowler MD CHEMISTRY ORDERABLES Performing Organization Address [facility] de Phone Number CERNER MILLENNIUM * BUN (04/12/2011 7:15 AM EST) Blood Urea Nitrogen 14 10 - 20 mg/dL CERNER MILLENNIUM Blood specimen (specimen) 04/12/2011 7:15 AM EST 04/12/2011 7:34 AM EST Robyn Fowler MD CHEMISTRY ORDERABLES Performing Organization Address [facility] de Phone Number CERNER MILLENNIUM * Electrolytes [...] Fowler MD CHEMISTRY ORDERABLES Performing Organization Address City/[facility] Co de Phone Number DONNIE JUNIORIUM * [...] to 0-10.6 mL/hr), Intravenous, CONTINUOUS, Starting on [facility] 04/13/11 at 1045, Until Fri04/14/11 at 0734, [...] Routine documented in this encounter Care Teams Technical Laboratory Asst Relationship Specialty Start Date End Date Arely Vickers MD PCP - General 04/12/11 09/15/16 documented as of this encounter
--- OUTSIDE RECORDS SUMMARY | 2023-12-23 16:47 | XMS_ITS | Encounter Summary ---
Author Organization [facility] Address [facility] [place] [address] Care Team Providers Care Crm Functional Analyst Name Role Phone Rolando Zacarias MD Primary Care Provider [phone] Encounter Details Date Type Department Care Team (Late st Contact Info) Description 04/12/2011 11:00 AM EST Anesthesia Event [place] [address] Placido Doe MD [facility] [place] [address] Anesthesia Record Procedure Summary Procedure Name Responsible [...] 04/13/11; 0800 04/12/11 0726 by Cristian Byers, ZIGZAG ELASTIC ATTACHER 04/13/11 0800 by Vishnu Mckoy RN (RETIRED) Peripheral IV Line - Single Lumen 04/12/11; 0726; 04/16/11; 0142 04/12/11 0726 by Cristian Byers, ZIGZAG ELASTIC ATTACHER 04/16/11 0142 by Tawana Valenzuela RN Urethral Catheter 04/12/11; 0727; indwelling double lumen catheter; 16; in place (inserted THERAPY MANAGER); 04/15/11; 0643 04/12/11 0727 by Cristian Byers, [...] Time: 1435 04/12/11 1452 by Bello Guerrero OCC THERAPY ASST 04/13/11 1435 by Esme Cole RRT documented [...] 1:30 PM EDT Laboratory Appointment Lab [address] [place] [address] 01/02/2024 3:00 PM EDT Office Visit [place] [address] Adam Costa MD [facility] [place] [address] documented as of this encounter Visit Diagnoses Not on filedocumented in this encounter Care Teams Crm Functional Analyst Relationship Specialty Start Date End Date Rolando Zacarias MD PCP - General 04/12/11 09/15/16 documented as of this encounter
--- OUTSIDE RECORDS SUMMARY | 2023-12-23 16:48 | XMS_ITS | Encounter Summary ---
Author Organization [facility] Address [facility] [place] [address] Care Team Providers Care Instructor Weaving Name Role Phone Arely Vickers MD Primary Care Provider [phone] Reason for Visit * Reason Comments Abdominal Pain Encounter Details Date Type Department Care Team (Late st Contact Info) Description 04/12/2011 10:58 AM EST - 04/12/2011 12:26 PM EST Surgery [place] [address] Steven Borges MD [facility] [place] [address] @EVG-PLACEMENT, CUFF OR EXT. AORTIC OR ILIAC [...] For any problems or questions please call [phone] Angela Mujica RN Vascular Nurse Clinician Loretta [...] yesterday. Will replete K again today. ID: [facility] trending down - patient on Vanc/zosyn for superimposed diverticulitis. Will start PO cipro/flagyl and have him continue for 7 more days. Dispo: Home today. * Christopher Barnes RN - 04/15/2011 4:05 PM EST Patient received from [facility] to [facility] in stable condition. 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 PRIMARY CARE PHYSICIAN: ARELY VICKERS MD [place] [address] / [place] [address] POTENTIAL DISCHARGE NEEDS: None anticipated; states can monitor his BP at home PATIENT/FAMILY EDUCATION NEEDS:per discharge summary ANTICIPATED BARRIERS TO DISCHARGE:none TRANSPORTATION @ D/C:friend Montse PLAN: Vascular CRC will continue to monitor progress, follow for continuity of care and assist withdischarge planning while hospitalized * Abhi Dukes, PharmD - 04/14/2011 2:08 PM EST Clinical Pharmacist Note-Vanc Cali Thompson [id number] 1935 Cali Thompson is a 75 y.o. [...] have. Alternately, during off-hours you may call [phone] to contact a pharmacist. ABHI DUKES PHARMD [...] - 04/13/2011 3:01 PM EST Cali Thompson [id number] 04/13/2011 04/12/2011 7:04 AM Critical Care Medicine [...] Q12H ??? DISCONTD: ceFAZolin 2 g Intravenous Pharmacy Customer Care Specialist to OR ??? DISCONTD: vancomycin 1 g Intravenous Q12H No Known Allergies EXAM: Temp: [35.7 ??C (96.3 ??F)-37.2 ??C (99 ??F)] Heart Rate: [47-80] Resp: [10-19] BP: (104)/(61) SpO2: [91 %-98 %] I/O last 3 completed shifts: In: 75289 [I.V.:25374] Out: 2300 [Urine:1700; Blood:600] I/O this shift: [...] 97 % SpO2: [91 %-98 %] SIMV/PS [id number] PEEP 5 FiO2 40% Last ABG 7.36/35/70/19 Intake/Output Summary (Last 24 hours) at 04/13/11 1155 Last data filed at 04/13/11 1000 Gross per 24 hour Intake 89256 ml Output 2775 ml Net 9784 ml [...] PM EST Clinical Pharmacist Note-Vanc Cali Thompson [id number] 1935 Cali Thompson is a 75 y.o. [...] have. Alternately, during off-hours you may call [phone] to contact a pharmacist. JIA VICTORIA PHARMD Pager [phone] * Chris Johnson - 04/12/2011 8:28 PM [...] 04/12/11 194 Gross per 24 hour Intake 54115 ml Output 1755 ml Net 8949 ml [...] Gill MD - 04/12/2011 8:08 AM EST [facility] staff procedure note: Under sterile cond RIGHT radial a-line placed for hemodynamic monitoring. Hand intact, excellent waveform. documented in this encounter H&P Notes * Poli Chowdhury MD - 04/12/2011 8:22 AM EST Cali Thompson [id number] 04/12/2011 04/12/2011 7:04 AM Critical Care Medicine [...] Once ??? DISCONTD: ceFAZolin 2 g Intravenous Pharmacy Customer Care Specialist to OR No Known Allergies EXAM: Temp: [...] prior known history of AAA, presents to [facility] with c/o abdominal pain for 12hours. [...] urgently once medically optimized, endovascular graft candidate [facility] Staff: I saw and evaluated Mr. Thompson [...] 04/17/2011 11:15 AM ESTAssociated Order(s): SCAN DOC: CURTAIN CLEANER documented in this encounter ED Notes * [...] with current pain regimen. Encouraged to notify bar staff when inneed of pain medication. Continue to [...] Joan Vail - 04/12/2011 4:41 PM EST [facility] Operative Note Patient Name: Cali Thompson : [id number] MR#: [id number] Case Date: 04/12/2011 Surgeon: Surgeon(s) and Role: * STEVEN BORGES MD - Primary * JOAN VAIL MD - Fellow Preoperative diagnosis: symptomatic infrarenal aortic aneurysm Postoperative diagnosis: same Procedure(s): Bilateral femoral arterial exposures Endovascular repair of aortic aneurysm, using [employer] Flex [id number] via right; ipsilateralextension with TFLE 16-56; contralateral [...] point on the right we advanced a [employer] device type [id number], and this was advanced up to the [...] the delivery system was removed, and a 12-Malagasy [place] dry seal was advanced. On the right [...] removed the delivery system and advanced a 20-Malagasy [place] dry seal up the right side. We [...] Operative Note Patient Name: Cali Thompson : [id number] MR#: [id number] Case Date: 04/12/2011 Surgeon: Surgeon(s) and Role: * STEVEN BORGES MD - Primary * JOAN VAIL MD - Fellow Preoperative diagnosis: symptomatic infrarenal aortic aneurysm Postoperative diagnosis: same Procedure(s): Bilateral femoral arterial exposures Endovascular repair of aortic aneurysm, using [employer] Flex [id number] via right; ipsilateralextension with TFLE 16-56; contralateral [...] exposures Endovascular repair of aortic aneurysm, using [employer] Flex [id number] via right; ipsilateralextension with TFLE 16-56; contralateral extension with TFLE 16-73 History of Presentation: 75 year old male without prior known history of AAA, presented to [facility] with complaints of abdominal pain for [...] For any problems or questions please call [phone] Angela Mujica RN Vascular Nurse Clinician Loretta Matthews RN Vascular Nurse Clinician Future Appointments and Orders Future Orders Please Complete By Expires CT abdomen & pelvis with contrast [[id number] Custom] 05/13/11 04/12/12 Process Instructions: Scheduling Instructions: [...] injury if applicable: * ED Triage - Cristina Byers RN - 04/12/2011 7:19 AM EST Pt arrives to the ED as a transfer from [facility] for vascular with a dx of AAA. [...] bedside upon pt arrival. Pt placed on refuse driver, labs obtained and sent. Pt c/o having [...] 01/02/2024 1:30 PM EDT Laboratory Appointment Lab [address] [address] 01/02/2024 3:00 PM EDT Office Visit [place] [address] Adam Costa MD [facility] [place] [address] documented as of this encounter Procedures Procedure [...] IMPLANTABLE DEVICES SCAN 04/17/2011 11:15 AM EST CURTAIN CLEANER SCAN 04/17/2011 11:15 AM EST POCT GLUCOSE [...] SCAN EXT O RDR/RSLT * SCAN DOC: CURTAIN CLEANER (04/17/2011 11:15 AM EST) Anatomical Region Laterality Modality Other Narrative 04/17/2011 3:20 PM EST Procedure Note Provider, Scanning - 04/17/2011 11:15 AM EST Scanning Provider MEDIA MGR SCAN EXT O RDR/RSLT * (ABNORMAL) POCT GLUCOSE LAB USE ONLY (04/16/2011 10:58 AM EST) Glucose, POC 257(H) 60 - 199 mg/dL [facility] Comment: Supplemental ranges: <110 mg/dL before meals <200 mg/dL all other times of the day Blood specimen (specimen) 04/16/2011 10:58 AM EST 04/16/2011 10:58 AM EST Randy Padilla MD POINT OF CARE TEST O BHASKAR Performing Organization Address [facility] de Phone Number [facility] * POCT GLUCOSE LAB USE ONLY (04/16/2011 7:21 AM EST) Glucose, POC 181 60 - 199 mg/dL [facility] Comment: Supplemental ranges: <110 mg/dL before meals <200 mg/dL all other times of the day Blood specimen (specimen) 04/16/2011 7:21 AM EST 04/16/2011 7:21 AM EST Randy Padilla MD POINT OF CARE TEST O BHASKAR Performing Organization Address [facility] Co de Phone Number [facility] * (ABNORMAL) DIFFERENTIAL, AUTOMATED (04/16/2011 6:08 [...] MD HEMATOLOGY ORDERABLE S Performing Organization Address [facility] Phone Number DONNIE DIETZ * (ABNORMAL) POCT GLUCOSE LAB USE ONLY (04/15/2011 8:59 PM EST) Glucose, POC 217(H) 60 - 199 mg/dL [facility] Comment: Supplemental ranges: <110 mg/dL before meals <200 mg/dL all other times of the day Blood specimen (specimen) 04/15/2011 8:59 PM EST 04/15/2011 8:59 PM EST Randy Padilla MD POINT OF CARE TEST O RDERABLES Performing Organization Address [facility]/ZIP Co de Phone Number [facility] * POCT GLUCOSE LAB USE ONLY (04/15/2011 4:07 PM EST) Glucose, POC 162 60 - 199 mg/dL [facility] Comment: Supplemental ranges: <110 mg/dL before meals <200 mg/dL all other times of the day Blood specimen (specimen) 04/15/2011 4:07 PM EST 04/15/2011 4:07 PM EST Randy Padilla MD POINT OF CARE TEST O RDERAJAZZY Performing Organization Address [facility] de Phone Number [facility] * POCT GLUCOSE LAB USE ONLY (04/15/2011 12:46 PM EST) Glucose, POC 157 60 - 199 mg/dL [facility] Comment: Supplemental ranges: <110 mg/dL before meals <200 mg/dL all other times of the day Blood specimen (specimen) 04/15/2011 12:46 PM EST 04/15/2011 12:46 PM EST Randy Padilla MD POINT OF CARE TEST O BHASKAR Performing Organization Address [facility] Phone Number [facility] * POCT GLUCOSE LAB USE ONLY (04/15/2011 8:34 AM EST) Glucose, POC 173 60 - 199 mg/dL [facility] Comment: Supplemental ranges: <110 mg/dL before meals <200 mg/dL all other times of the day Blood specimen (specimen) 04/15/2011 8:34 AM EST 04/15/2011 8:34 AM EST Randy Padilla MD POINT OF CARE TEST O RDERAJAZZY Performing Organization Address [facility] Phone Number [facility] * (ABNORMAL) DIFFERENTIAL, AUTOMATED (04/15/2011 6:05 [...] Padilla MD CHEMISTRY ORDERABLES Performing Organization Address [facility] Phone Number [facility] * POCT GLUCOSE LAB USE ONLY (04/14/2011 8:46 PM EST) Glucose, POC 156 60 - 199 mg/dL [facility] Comment: Supplemental ranges: <110 mg/dL before meals <200 mg/dL all other times of the day Blood specimen (specimen) 04/14/2011 8:46 PM EST 04/14/2011 8:46 PM EST Randy Padilla MD POINT OF CARE TEST O RDERABLES Performing Organization Address [facility] Phone Number [facility] * POCT GLUCOSE LAB USE ONLY (04/14/2011 5:36 PM EST) Glucose, POC 159 60 - 199 mg/dL [facility] Comment: Supplemental ranges: <110 mg/dL before meals <200 mg/dL all other times of the day Blood specimen (specimen) 04/14/2011 5:36 PM EST 04/14/2011 5:36 PM EST Randy Padilla MD POINT OF CARE TEST O RDERABLES Performing Organization Address [facility] Phone Number [facility] * (ABNORMAL) POCT GLUCOSE LAB USE ONLY (04/14/2011 1:31 PM EST) Glucose, POC 201(H) 60 - 199 mg/dL [facility] Comment: Supplemental ranges: <110 mg/dL before meals <200 mg/dL all other times of the day Blood specimen (specimen) 04/14/2011 1:31 PM EST 04/14/2011 1:31 PM EST Randy Padilla MD POINT OF CARE TEST O RDERAJAZZY Performing Organization Address [facility]/ZIP Co de Phone Number DONNIE DIETZ * [...] Padilla MD CHEMISTRY ORDERABLES Performing Organization Address City/[facility] Co de Phone Number DONNIE DIETZ [...] CARE TEST O RDERABLES Performing Organization Address City/[facility] Co de Phone Number DONNIE DIETZ [...] MD HEMATOLOGY ORDERABLE S Performing Organization Address [facility] de Phone Number DONNIE DIETZ * LACTIC ACID, PLASMA (04/14/2011 8:00 AM EST) Lactic Acid 1.3 0.5 - 2.2 mmol/L [facility]ERN[facility] MILLENNIUM Blood specimen (specimen) 04/14/2011 8:00 AM EST 04/14/2011 8:31 PM EST Randy Padilla MD CHEMISTRY ORDERABLES Performing Organization Address [facility] Co de Phone Number CERMARTI HIGGINSENNIUM [...] Padilla MD CHEMISTRY ORDERABLES Performing Organization Address [facility] Phone Number [facility] * POCT GLUCOSE LAB USE ONLY (04/13/2011 8:22 PM EST) Glucose, POC 167 60 - 199 mg/dL [facility] Comment: Supplemental ranges: <110 mg/dL before meals <200 mg/dL all other times of the day Blood specimen (specimen) 04/13/2011 8:22 PM EST 04/13/2011 8:22 PM EST Randy Padilla MD POINT OF CARE TEST O RDERABLES Performing Organization Address [facility] Phone Number [facility] * POCT GLUCOSE LAB USE ONLY (04/13/2011 5:58 PM EST) Glucose, POC 164 60 - 199 mg/dL [facility] Comment: Supplemental ranges: <110 mg/dL before meals <200 mg/dL all other times of the day Blood specimen (specimen) 04/13/2011 5:58 PM EST 04/13/2011 5:58 PM EST Randy Padilla MD POINT OF CARE TEST O RDERAJAZZY Performing Organization Address [facility] Phone Number [facility] * (ABNORMAL) BLOOD GAS 2 ARTERIAL (04/13/2011 5:53 PM EST) pH, Arterial 7.37 CERNER MILLENNIUM PCO2, Arterial 30(L) mmHg CERNE R MILLENNIUM PO2, Arterial 79(L) mmHg CERNER MILLENNIUM Bicarbonate, Arterial 16.8(L) mmol/L CERNER MILLENNIUM Base Excess, Arterial -8.4(L) mmol/L CERNER MILLENNIUM Hgb Blood Gas 11.5(L) gm/dL [facility] MILLENNIUM Comment: Total Hemoglobin (in gm/dL) ?Based on [facility] Hematology ranges: ?Age ?Reference Range Less than [...] CARE TEST O RDERABLES Performing Organization Address [facility] Phone Number [facility] * Lactic acid, plasma (04/13/2011 5:30 PM EST) Lactic Acid 1.8 0.5 - 2.2 mmol/L [facility] Blood specimen (specimen) 04/13/2011 5:30 PM EST 04/14/2011 7:25 PM EST Randy Padilla MD CHEMISTRY ORDERABLES Performing Organization Address [facility] Phone Number [facility] * POCT GLUCOSE LAB USE ONLY (04/13/2011 1:08 PM EST) Glucose, POC 117 60 - 199 mg/dL [facility] Comment: Supplemental ranges: <110 mg/dL before meals <200 mg/dL all other times of the day Blood specimen (specimen) 04/13/2011 1:08 PM EST 04/13/2011 1:08 PM EST Randy Padilla MD POINT OF CARE TEST O RDERABLES Performing Organization Address [facility] de Phone Number [facility] * (ABNORMAL) BLOOD GAS 2 ARTERIAL (04/13/2011 12:54 PM EST) pH, Arterial 7.40 CERNER MILLENNIUM PCO2, Arterial 28(L) mmHg CERNE R MILLENNIUM PO2, Arterial 89 mmHg CERNER MILLENNIUM Bicarbonate, Arterial 16.9(L) mmol/L CERNER MILLENNIUM Base Excess, Arterial -7.9(L) mmol/L CERNER MILLENNIUM Hgb Blood Gas 10.6(L) gm/dL [facility]ERN[facility] MILLENNIUM Comment: Total Hemoglobin (in gm/dL) ?Based on [facility] Hematology ranges: ?Age ?Reference Range Less than [...] al) mmol/L CERNER MILLENNIUM Comment: Noted by assembler musical instruments. Please note: Patients with WBC >100,000 may [...] CARE TEST O RDERABLES Performing Organization Address [facility] de Phone Number [facility] * Lactic acid, plasma (04/13/2011 12:45 PM EST) Lactic Acid 1.9 0.5 - 2.2 mmol/L [facility] Blood specimen (specimen) 04/13/2011 12:45 PM EST 04/14/2011 7:19 PM EST Randy Padilla MD CHEMISTRY ORDERABLES Performing Organization Address [facility] de Phone Number [facility] * POCT GLUCOSE LAB USE ONLY (04/13/2011 8:37 AM EST) Glucose, POC 128 60 - 199 mg/dL [facility] Comment: Supplemental ranges: <110 mg/dL before meals <200 mg/dL all other times of the day Blood specimen (specimen) 04/13/2011 8:37 AM EST 04/13/2011 8:37 AM EST Randy Padilla MD POINT OF CARE TEST O RDERABLES Performing Organization Address [facility] Phone Number [facility] * (ABNORMAL) BLOOD GAS 2 ARTERIAL (04/13/2011 8:29 AM EST) pH, Arterial 7.38 CERNER MILLENNIUM PCO2, Arterial 28(L) mmHg CERNE R MILLENNIUM PO2, Arterial 78(L) mmHg CERNER MILLENNIUM Bicarbonate, Arterial 15.7(L) mmol/L CERNER MILLENNIUM Base Excess, Arterial -9.5(L) mmol/L CERNER MILLENNIUM Hgb Blood Gas 10.2(L) gm/dL CERNER MILLENNIUM Comment: Total Hemoglobin (in gm/dL) ?Based on [facility] Hematology ranges: ?Age ?Reference Range Less than [...] al) mmol/L CERNER MILLENNIUM Comment: noted by coat operator insulator Please note: Patients with WBC >100,000 may have falsely elevated Potassium levels. Contact the Clinical Chemistry Laboratory if there are any questions. ICa Whole Blood 0.91(Criti juan manuel) mmol/L CERNER MILLENNIUM Comment: noted by coat operator insulator Reference Ranges: ?? < 19 yrs: 1.22 [...] CARE TEST O RDERABLES Performing Organization Address [facility] de Phone Number CERNER MILLENNIUM * (ABNORMAL) Lactic acid, plasma (04/13/2011 5:47 AM EST) Lactic Acid 2.3(H) 0.5 - 2.2 mmol/L CERNER MILLENNIUM Blood specimen (specimen) 04/13/2011 5:47 AM EST 04/13/2011 5:55 AM EST Randy Padilla MD CHEMISTRY ORDERABLES Performing Organization Address [facility] de Phone Number CERNER MILLENNFORMERLY [facility] * (ABNORMAL) BLOOD GAS 2 ARTERIAL (04/13/2011 5:42 AM EST) pH, Arterial 7.36 CERNER MILLENNIUM PCO2, Arterial 36 mmHg CERNE R MILLENNIUM PO2, Arterial 71(L) mmHg CERNER MILLENNIUM Bicarbonate, Arterial 19.9(L) mmol/L CERNER MILLENNIUM Base Excess, Arterial -5.6(L) mmol/L CERNER MILLENNIUM Hgb Blood Gas 12.1(L) gm/dL CERNER MILLENNIUM Comment: Total Hemoglobin (in gm/dL) ?Based on [facility] Hematology ranges: ?Age ?Reference Range Less than [...] Thromboplastin Time 27 25 - 37 sec [facility] MILLENNIUM Comment: Recommended therapeutic PTT range for full dose unfractionated heparin is 80-114 seconds. Blood specimen (specimen) 04/13/2011 4:00 AM EST 04/13/2011 4:10 AM EST Narrative Authorizing Provider Result Telma Fowler MD HEMATOLOGY ORDERABLE S Performing Organization Address [facility] Phone Number DONNIE JUNIORFORMERLY [facility] * (ABNORMAL) Prothrombin Time (04/13/2011 4:00 AM EST) Prothrombin Time 14.8(H) 12.3 - 14.7 sec [facility] MILLENNIUM Comment: [facility] Transfusion Committee Guidelines: INR less than 2.0, PTT less than OR equal to 43.5 seconds, or Fibrinogen greater than or equal to 100 mg/dl indicate adequate procoagulant activity for hemostasis in patients without underlying bleeding disorders. International Normalization Ratio 1.1 0.9 - 1.1 [facility] Blood specimen (specimen) 04/13/2011 4:00 AM EST 04/13/2011 4:10 AM EST Narrative Authorizing Provider Result Telma Fowler MD HEMATOLOGY ORDERABLE S Performing Organization Address [facility] Phone Number DONNIE DIETZ * (ABNORMAL) Basic Metabolic Panel (non-fasting) (04/13/2011 4:00 AM EST) Glucose 158 60 - 199 mg/dL [facility] MILLENNIUM Comment:Diabetes: >=200 mg/d L plus symptoms Blood Urea Nitrogen 12 10 - 20 mg/dL [facility] MILLENNIUM Creatinine 1.12 0.80 - 1.50 mg/dL CERNER MILLENNIUM Sodium 139 135 - 145 mmol/L [facility] MILLENNIUM Potassium 3.7 3.5 - 5.0 mmol/L [facility] MILLENNIUM Comment: Please note: ??Patients with WBC [...] Comment: Total Hemoglobin (in gm/dL) ?Based on [facility] Hematology ranges: ?Age ?Reference Range Less than [...] CARE TEST O RDERABLES Performing Organization Address [facility] Phone Number [facility] * Lactic acid, plasma (04/12/2011 11:55 PM EST) Lactic Acid 1.8 0.5 - 2.2 mmol/L [facility] Comment:result rechecked-llu Blood specimen (specimen) 04/12/2011 11:55 PM EST 04/13/2011 12:04 AM EST Randy Padilla MD CHEMISTRY ORDERABLES Performing Organization Address [facility] Phone Number [facility] * POCT GLUCOSE LAB USE ONLY (04/12/2011 8:41 PM EST) Pathologist [facility] Glucose, POC 129 60 - 199 mg/dL [facility] Comment: Supplemental ranges: <110 mg/dL before meals <200 mg/dL all other times of the day Blood specimen (specimen) 04/12/2011 8:41 PM EST 04/12/2011 8:41 PM EST Randy Padilla MD POINT OF CARE TEST O RDERABLES Performing Organization Address [facility] Phone Number [facility] * (ABNORMAL) BLOOD GAS 2 ARTERIAL (04/12/2011 8:05 PM EST) pH, Arterial 7.37 7.35 - 7.45 CERNER MILLENNIUM PCO2, Arterial 35 35 - 45 mmHg [facility] MILLENNIUM PO2, Arterial 72(L) 85 - 104 mmHg CERNER MILLENNIUM Bicarbonate, Arterial 19.6(L) 20.0 - 26.0 mmol/L CERNER MILLENNIUM Base Excess, Arterial -5.8(L) -3.0 - 3.0 mmol/L [facility] MILLENNIUM Hgb Blood Gas 12.0(L) 13.7 - 17.5 gm/dL [facility] Comment: Total Hemoglobin (in gm/dL) ?Based on [facility] Hematology ranges: ?Age ?Reference Range Less than [...] MD HEMATOLOGY ORDERABLE S Performing Organization Address [facility] de Phone Number CERNER MILLENNIUM * (ABNORMAL) Lactic acid, plasma (04/12/2011 5:25 PM EST) Lactic Acid 4.5(H) 0.5 - 2.2 mmol/L CERNER MILLENNIUM Blood specimen (specimen) 04/12/2011 5:25 PM EST 04/12/2011 5:40 PM EST Randy Padilla MD CHEMISTRY ORDERABLES Performing Organization Address [facility] de Phone Number CERNER MILLENNIUM [...] 7.29(Criti juan manuel) CERNER MILLENNIUM Comment:Noted by assembler musical instruments. PCO2, Arterial 41 mmHg CERNE R MILLENNIUM PO2, Arterial 74(L) mmHg CERNER MILLENNIUM Bicarbonate, Arterial 19.6(L) mmol/L CERNER MILLENNIUM Base Excess, Arterial -6.9(L) mmol/L CERNER MILLENNIUM Hgb Blood Gas 13.0(L) gm/dL CERNER MILLENNIUM Comment: Total Hemoglobin (in gm/dL) ?Based on [facility] Hematology ranges: ?Age ?Reference Range Less than [...] CARE TEST O BHASKAR Performing Organization Address [facility] de Phone Number CERNER MILLENNIUM * POCT GLUCOSE LAB USE ONLY (04/12/2011 4:09 PM EST) Glucose, POC 181 60 - 199 mg/dL CERNER MILLENNIUM Comment: Supplemental ranges: <110 mg/dL before meals <200 mg/dL all other times of the day Blood specimen (specimen) 04/12/2011 4:09 PM EST 04/12/2011 4:09 PM EST Randy Padilla MD POINT OF CARE TEST O KORTNEYERAJAZZY Performing Organization Address [facility] Co de Phone Number CERNER MILLENNIUM * (ABNORMAL) POCT GLUCOSE LAB USE ONLY (04/12/2011 3:49 PM EST) Glucose, POC 217(H) 60 - 199 mg/dL CERNER MILLENNIUM Comment: Supplemental ranges: <110 mg/dL before meals <200 mg/dL all other times of the day Blood specimen (specimen) 04/12/2011 3:49 PM EST 04/12/2011 3:49 PM EST Randy Padilla MD POINT OF CARE TEST O RDERABLES [facility] * (ABNORMAL) BLOOD GAS ARTERIAL (04/12/2011 3:10 [...] Comment: Total Hemoglobin (in gm/dL) ?Based on [facility] Hematology ranges: ?Age ?Reference Range Less than [...] Padilla MD CHEMISTRY ORDERABLES Performing Organization Address [facility] de Phone Number DONNIE DIETZ * POCT GLUCOSE LAB USE ONLY (04/12/2011 2:57 PM EST) Glucose, POC 198 60 - 199 mg/dL DONNIE HIGGINSENNIUM Comment: Supplemental ranges: <110 mg/dL before meals <200 mg/dL all other times of the day Blood specimen (specimen) 04/12/2011 2:57 PM EST 04/12/2011 2:57 PM EST Randy Padilla MD POINT OF CARE TEST O RDERABLES Performing Organization Address [facility] Phone Number DONNIE DIETZ * KAUR HOLD (04/12/2011 2:55 PM EST) Pathologist [facility] Kaur Hold Sample in lab. [facility] Blood specimen (specimen) 04/12/2011 2:55 PM EST 04/12/2011 3:30 PM EST Randy Padilla MD CHEMISTRY ORDERABLES Performing Organization Address [facility] de Phone Number DONNIE DIETZ * (ABNORMAL) Hepatic Function Panel (04/12/2011 2:55 PM EST) Pathologist [facility] Protein, Total 4.6(L) 6.4 - 8.3 gm/dL [...] Padilla MD CHEMISTRY ORDERABLES Performing Organization Address [facility] de Phone Number [facility] VERNONIUM * (ABNORMAL) Phosphorus (04/12/2011 2:55 PM EST) Phosphorus 4.6(H) 2.5 - 4.5 mg/dL CERNER MILLENNIUM Blood specimen (specimen) 04/12/2011 2:55 PM EST 04/12/2011 3:22 PM EST Randy Padilla MD CHEMISTRY ORDERABLES Performing Organization Address [facility] Phone Number [facility] * (ABNORMAL) Magnesium (04/12/2011 2:55 PM EST) Magnesium 0.54(L) 0.69 - 1.07 mmol/L [facility] Blood specimen (specimen) 04/12/2011 2:55 PM EST 04/12/2011 3:22 PM EST Randy Padilla MD CHEMISTRY ORDERABLES Performing Organization Address [facility] Phone Number [facility] * (ABNORMAL) Prothrombin Time (04/12/2011 2:55 PM EST) Prothrombin Time 15.8(H) 12.3 - 14.7 sec [facility] MILLENNIUM Comment: [facility] Transfusion Committee Guidelines: INR less than 2.0, PTT less than OR equal to 43.5 seconds, or Fibrinogen greater than or equal to 100 mg/dl indicate adequate procoagulant activity for hemostasis in patients without underlying bleeding disorders. International Normalization Ratio 1.2(H) 0.9 - 1.1 [facility] MILLENNIUM Blood specimen (specimen) 04/12/2011 2:55 PM EST 04/12/2011 3:22 PM EST Randy Padilla MD HEMATOLOGY ORDERABLE S Performing Organization Address [facility] Phone Number [facility] * APTT (04/12/2011 2:55 PM EST) Partial [...] 7.21(Criti juan manuel) CERNER MILLENNIUM Comment:Noted by assembler musical instruments. PCO2, Arterial 41 mmHg CERNE R MILLENNIUM PO2, Arterial 73(L) mmHg CERNER MILLENNIUM Bicarbonate, Arterial 16.1(L) mmol/L CERNER MILLENNIUM Base Excess, Arterial -11.7(L) mmol/L CERNER MILLENNIUM Hgb Blood Gas 12.4(L) gm/dL CERNER MILLENNIUM Comment: Total Hemoglobin (in gm/dL) ?Based on [facility] Hematology ranges: ?Age ?Reference Range Less than [...] 7.20(Criti juan manuel) CERNER MILLENNIUM Comment:Noted by assembler musical instruments. PCO2, Arterial 48(H) mmHg CERNE R MILLENNIUM PO2, Arterial 109(H) mmHg CERNER MILLENNIUM Bicarbonate, Arterial 18.5(L) mmol/L CERNER MILLENNIUM Base Excess, Arterial -9.5(L) mmol/L CERNER MILLENNIUM Hgb Blood Gas 13.0(L) gm/dL CERNER MILLENNIUM Comment: Total Hemoglobin (in gm/dL) ?Based on [facility] Hematology ranges: ?Age ?Reference Range Less than [...] CARE TEST O BHASKAR Performing Organization Address [place]/[facility] Co de Phone Number CERNER MILLENNIUM [...] Comment: Total Hemoglobin (in gm/dL) ?Based on [facility] Hematology ranges: ?Age ?Reference Range Less than [...] CARE TEST O RDERAJAZZY Performing Organization Address [facility] Co de Phone Number DONNIE DIETZ * (ABNORMAL) POCT GLUCOSE LAB USE ONLY (04/12/2011 9:53 AM EST) Pathologist [facility] Glucose, POC 286(H) 60 - 199 mg/dL [facility]NIE [facility]INSCH[facility]ENTERPETR Comment: Supplemental ranges: <110 mg/dL before meals <200 mg/dL all other times of the day Blood specimen (specimen) 04/12/2011 9:53 AM EST 04/12/2011 9:53 AM EST Randy Padilla MD POINT OF CARE TEST O BHASKAR Performing Organization Address [facility] de Phone Number DONNIE DIETZ * ANTIBODY SCREEN (04/12/2011 8:25 AM EST) Pathologist [facility] Ab Screen Interp Negative DONNIE DIETZ Expires at [id number] on: [id number] DONNIE DIETZ Blood specimen (specimen) 04/12/2011 8:25 AM EST 04/12/2011 8:38 AM EST Erik Gill MD BLOOD BANK LAB ORDER BRIANNE Performing Organization Address [facility] de Phone Number DONNIE DIETZ * ABO/RH [...] Gill MD CHEMISTRY ORDERABLES Performing Organization Address [place]/[facility] Co de Phone Number DONNIE DIETZ * Lavender Tube HOLD (04/12/2011 8:25 AM EST) Lavender Hold Sample in lab. DONNIE DIETZ Blood specimen (specimen) 04/12/2011 8:25 AM EST 04/12/2011 8:38 AM EST Erik Gill MD HEMATOLOGY ORDERABLE S Performing Organization Address [facility] Co de Phone Number DONNIE DIETZ [...] (Bezet) 450 ms MUSE SYSTEM Calculated P [place] 33 degrees MUSE SYSTEM Calculated R [place] 50 degrees MUSE SYSTEM Calculated T [place] 66 degrees MUSE SYSTEM INTERPRETATION Sinus rhythm [...] THOMPSON ?Ordered By: ROBYN FOWLER ? MR#: [id number] ?LOC: ??ICUN ? /Sex: ?? 7 (75 years), ? Male ? PROCEDURE: Urine Culture ?SOURCE: [facility] ? COLLECTED: 04/12/2011 07:26 ? STARTED: 04/12/2011 08:10 ? FINAL REPORT ? Final Report ? Verified: 06:39 ? No growth (Less than 1,000 cfu/ml). ? ____ CERNER MILLENNIUM Urine specimen obtained via straight catheter (specimen) 04/12/2011 7:26 AM EST 04/12/2011 8:10 AM EST Robyn Fowler MD MICROBIOLOGY - GENER AL ORDERABLES Performing Organization Address [place]/[facility] Co de Phone Number CERNER MILLENNIUM [...] Urine Dipstick Clear Clear CERNER MILLENNIUM Specific [place] Urine Automated 1.021 1.002 - 1.030 CERNER MILLENNIUM Color, Urine Dipstick Yellow Yellow CERNER MILLENNIUM RBC, Urine Not Present 0 - 3 CERNER MILLENNIUM WBC, Urine Not Present 0 - 3 CERNER MILLENNIUM Urine specimen (specimen) 04/12/2011 7:25 AM EST 04/12/2011 7:39 AM EST Robyn Fowler MD URINE ORDERABLES Performing Organization Address [place]/[facility] Co de Phone Number CERNER MILLENNIUM [...] 7:15 AM EST) Troponin-T <0.03 <=0.03 ng/mL [facility] Comment: 0.03 ng/mL: Represents the 99th percentile upper reference limit for normals. >0.03 ng/mL: Elevated cardiac troponin T level indicative of myocardial damage. Diagnosis of acute, evolving or recent [place] requires a typical rise and gradual fall [...] consensus document of the Joint Society of Cardiology/[place] [employer] Committee for the redefinition of myocardial infarction. Journal of the [place] [employer] 2000; 36: 959-969] Blood specimen (specimen) 04/12/2011 7:15 AM EST 04/12/2011 7:34 AM EST Robyn Fowler MD CHEMISTRY ORDERABLES Performing Organization Address [facility] de Phone Number [facility] * APTT (04/12/2011 7:15 AM EST) Partial Thromboplastin Time 28 25 - 37 sec [facility] Comment: Recommended therapeutic PTT range for full dose unfractionated heparin is 80-114 seconds. Blood specimen (specimen) 04/12/2011 7:15 AM EST 04/12/2011 7:34 AM EST Robyn Fowler MD HEMATOLOGY ORDERABLE S Performing Organization Address [facility] Phone Number [facility] * Prothrombin Time (04/12/2011 7:15 AM EST) Prothrombin Time 13.2 12.3 - 14.7 sec [facility] Comment: [facility] Transfusion Committee Guidelines: INR less than 2.0, PTT less than OR equal to 43.5 seconds, or Fibrinogen greater than or equal to 100 mg/dl indicate adequate procoagulant activity for hemostasis in patients without underlying bleeding disorders. International Normalization Ratio 1.0 0.9 - 1.1 [facility] TagaPetCHANDL[facility]ENTERIUM Blood specimen (specimen) 04/12/2011 7:15 AM EST 04/12/2011 7:34 AM EST Robyn Fowler MD HEMATOLOGY ORDERABLE S Performing Organization Address [facility] de Phone Number [facility] * (ABNORMAL) Glucose, random (04/12/2011 7:15 AM EST) Glucose 299(H) 60 - 199 mg/dL [facility] Comment:Diabetes: >=200 mg/d L plus symptoms Blood specimen (specimen) 04/12/2011 7:15 AM EST 04/12/2011 7:34 AM EST Robyn Fowler MD CHEMISTRY ORDERABLES Performing Organization Address [facility] Phone Number [facility] * Creatinine, serum (04/12/2011 7:15 AM EST) Creatinine 0.98 0.80 - 1.50 mg/dL [facility] TagaPetENNIUM Est Glomerular Filtration Rate >60 >=60 [facility] MILLENNIUM Comment: The National Kidney Disease Education [...] Fowler MD CHEMISTRY ORDERABLES Performing Organization Address [facility] de Phone Number CERMARTI JUNIORIUM * BUN (04/12/2011 7:15 AM EST) Blood Urea Nitrogen 14 10 - 20 mg/dL CERNER MILLENNIUM Blood specimen (specimen) 04/12/2011 7:15 AM EST 04/12/2011 7:34 AM EST Robyn Fowler MD CHEMISTRY ORDERABLES Performing Organization Address [facility] de Phone Number CERMARTI HIGGINSCHANDLER [facility] CENTERIUM * Electrolytes panel (04/12/2011 7:15 AM EST) [...] Fowler MD CHEMISTRY ORDERABLES Performing Organization Address [place]/[facility] Co de Phone Number DONNIE DIETZ [...] MD HEMATOLOGY ORDERABLE S Performing Organization Address [facility] Co de Phone Number DONNIE DIETZ documented [...] Routine documented in this encounter Care Teams Instructor Weaving Relationship Specialty Start Date End Date Arely Vickers MD PCP - General 04/12/11 09/15/16 documented as of this encounter
--- NOTE | 2023-12-23 17:48 | W.ED.GENAD ---
Discharge Plan Disposition Patient Disposition: Home Condition: Stable Discharge Details Clinical Impression: Back pain Primary Care Provider: Maximino Lucero ED Provider: Coby Oseguera Home Meds and New Rx's Prescriptions: New methocarbamol 500 mg tablet 500 mg PO TID Qty: 10 0RF lidocaine [Lidoderm] 5 % adhesive patch,medicated 1 patch topical DAILY PRNQty: 15 0RF Rx Instructions: leave on most painful area for up to 12 hrs Continued lisinopril 5 mg tablet 5 mg PO DAILY amiodarone 200 mg tablet 200 mg PO DAILY Patient Comments: 11/27/20 started at [facility] for afib, pt was loaded on 400 mg BID for 7 days, RH tamsulosin 0.4 mg capsule 0.4 mg PO DAILY amlodipine 2.5 mg tablet 2.5 mg PO DAILY fluocinolone 0.01 % cream 1 applic topical BID magnesium oxide 400 mg magnesium capsule 400 mg PO BID Patient Comments: pt. reports he has been out of it nitroglycerin [Nitrostat] 0.4 mg tablet, sublingual 0.4 mg sublingual Q5 MIN PRN X3 PRN Rx Instructions: as a single dose; administer 5-10 minutes before situation known to precipitate angina attack apixaban 2.5 mg tablet 2.5 mg PO BID Patient Comments: 11/27/20 started at [facility] due to elevated creatinine 2.4 RH insulin aspart U-100 [Novolog U-100 Insulin aspart] 100 unit/mL solution 9 unit subcut TID alogliptin 6.25 mg tablet 6.25 mg PO DAILY calcitriol 0.25 mcg capsule 0.25 mcg PO DAILY cholecalciferol (vitamin D3) 25 mcg (1,000 unit) capsule 25 mcg PO DAILY insulin glargine [Lantus U-100 Insulin] 100 unit/mL solution 25 unit subcut DAILY lisinopril 10 mg tablet 10 mg PO DAILY ibuprofen 200 MG capsule 600 - 800 mg PO PRN PRN atorvastatin [Lipitor] 40 MG tablet 40 mg PO QPM acetaminophen [Acetaminophen Extra Strength] 500 mg Tablet 1,000 mg PO Q8H PRN cyanocobalamin (vitamin B-12) 1,000 mcg Tablet 1,000 mcg PO DAILY furosemide 40 mg tablet 80 mg PO DAILY albuterol sulfate 90 mcg/actuation HFA aerosol inhaler 2 puff INHALATION ONCE PRN Patient Comments: INHALE TWO PUFFS BY MOUTH EVERY 4 TO 6 HOURS NEEDED metoprolol succinate 50 mg tablet extended release 24 hr 25 mg PO DAILY Qty: 0 0RF prednisone 10 mg tablet 10 mg PO DIRECTED Qty: 54 0RF Rx Instructions: see taper instructions gabapentin [Neurontin] 100 mg capsule 100 mg PO TID Qty: 42 0RF Discharge Instructions Instructions: Low Back Pain ED Additional Instructions: As we discussed, your most recent workup here shows degenerative changes in your spine. This arthritic changes, coupled with muscle spasm is likely the cause of your discomfort. Please call physical therapy tomorrow to schedule follow-up appointment, referral is attached. Please encourage hydration. Please continue with Tylenol as needed for discomfort. You may use the muscle relaxer as prescribed. Please not drink alcohol or drive while using this medication. Use this sparingly and only as prescribed as this can be a sedating medication and can have significant side effects. Please follow-up with your primary care in the next week for reevaluation. Please use heat to help with your discomfort and muscle spasm. Please get up and walk around as much as you can as this will also help to loosen up your muscles. If you develop weakness, sensory change, change in your bowel or bladder habits or other new/worsening symptom please seek care urgently once again. Stand Alone Forms: Physical Therapy Referral Referrals: Maximino Lucero [Primary Care Provider] - [facility] General Date/Time Provider Initiated Documentation: 12/23/23 16:35. Limitations to Documentation: no limitations. Information obtained by: patient, family, RN notes reviewed and old records reviewed. History of Present Illness 88 year old M presents to the emergency department with the chief complaint of left lower back pain, described as severe, Quality is described as aching, and is localized to the back. Patient reports no radiation. Patient started experiencing this year(s) (reports chronic pain worse over past few months) and it has been constant. Immobilization improves symptom(s), Movement worsens symptoms . Patient notes no other symptoms.. Patient did receive the following treatments prior to arrival, none Related Data Home Medications ?Medication ?Instructions ?Recorded ?Confirmed ibuprofen 200 mg capsule 600 - 800 mg PO PRN PRN 09/05/15 12/23/23 atorvastatin 40 mg tablet (Lipitor) 40 mg PO QPM 09/20/17 12/23/23 fluocinolone 0.01 % topical cream 1 applic topical BID 01/14/20 12/23/23 magnesium oxide 400 mg PO BID 01/14/20 12/23/23 nitroglycerin 0.4 mg sublingual 0.4 mg sublingual Q5 MIN PRN X3 PRN 01/14/20 12/23/23 tablet (Nitrostat) acetaminophen 500 mg tablet 1,000 mg PO Q8H PRN 02/29/20 12/23/23 (Acetaminophen Extra Strength) cyanocobalamin (vitamin B-12) 1,000 mcg PO DAILY 03/01/20 12/23/23 1,000 mcg tablet amiodarone 200 mg tablet 200 mg PO DAILY 11/27/20 12/23/23 lisinopril 5 mg tablet 5 mg PO DAILY 11/27/20 12/23/23 tamsulosin 0.4 mg capsule 0.4 mg PO DAILY 11/27/20 12/23/23 apixaban 2.5 mg tablet 2.5 mg PO BID 05/31/21 12/23/23 insulin aspart U-100 100 unit/mL 9 unit subcut TID 05/31/21 12/23/23 subcutaneous solution (Novolog U-100 Insulin aspart) amlodipine 2.5 mg tablet 2.5 mg PO DAILY 07/11/22 12/23/23 furosemide 40 mg tablet 80 mg PO DAILY swelling 07/11/22 12/23/23 albuterol sulfate 90 mcg/actuation 2 puff inhalation ONCE PRN 05/17/23 12/23/23 aerosol inhaler alogliptin 6.25 mg tablet 6.25 mg PO DAILY 10/07/23 12/23/23 calcitriol 0.25 mcg capsule 0.25 mcg PO DAILY 10/07/23 12/23/23 cholecalciferol (vitamin D3) 25 25 mcg PO DAILY 10/07/23 12/23/23 mcg (1,000 unit) capsule insulin glargine 100 unit/mL 25 unit subcut DAILY 10/07/23 12/23/23 subcutaneous solution (Lantus U-100 Insulin) lisinopril 10 mg tablet 10 mg PO DAILY 10/07/23 12/23/23 metoprolol succinate 50 mg 25 mg (1/2 x 50 mg) PO DAILY #0 10/07/23 12/23/23 tablet,extended release 24 hr tabs gabapentin 100 mg capsule 100 mg PO TID #42 caps 12/21/23 12/23/23 (Neurontin) prednisone 10 mg tablet 10 mg PO DIRECTED #54 tabs 12/21/23 12/23/23 methocarbamol 500 mg tablet 500 mg PO TID #10 tabs 12/23/23 lidocaine 5 % topical patch 1 patch topical DAILY PRN #15 ea 12/24/23 (Lidoderm) Previous Rx's ?Medication ?Instructions ?Recorded metoprolol succinate 50 mg 25 mg (1/2 x 50 mg) PO DAILY #0 10/07/23 tablet,extended release 24 hr tabs gabapentin 100 mg capsule 100 mg PO TID #42 caps 12/21/23 (Neurontin) prednisone 10 mg tablet 10 mg PO DIRECTED #54 tabs 12/21/23 methocarbamol 500 mg tablet 500 mg PO TID #10 tabs 12/23/23 lidocaine 5 % topical patch 1 patch topical DAILY PRN #15 ea 12/24/23 (Lidoderm) Allergies Allergy/AdvReac Type Severity Reaction Status Date / Time adhesive Allergy Severe significant Verified 12/23/23 16:40 skin reaction, swelling, erythema, discomfort neomycin Allergy Unknown Verified 12/23/23 16:40 General Stated Complaint: Nk/Back Pain ASTON: 3 Review of Systems Constitutional Constitutional: Reports as per HPI, Denies chills and Denies fever(s) Cardiovascular Cardiovascular: Denies chest pain, Denies dyspnea and Denies dyspnea on exertion Respiratory Respiratory: Denies cough, Denies dyspnea and Denies dyspnea on exertion Gastrointestinal Gastrointestinal: Denies abdominal pain, Denies change in bowel habits and Denies fecal incontinence Genitourinary Genitourinary: Reports as per HPI, Denies urinary hesitancy and Denies urinary incontinence Musculoskeletal Musculoskeletal: Reports as per HPI, Reports back pain, Denies muscle weakness, Denies numbness, Denies radiating pain into limb, Reports stiffness and Denies tingling Integumentary/Breasts Skin/Breast: Reports as per HPI and Denies rash Neurologic Neurologic: Reports as per HPI, Denies localized weakness, Denies numbness, Denies radicular pain, Denies sensory deficit, Denies tingling and Denies paresthesias Exam Const General: cooperative, healthy appearing, comfortable, no acute distress, well developed and well groomed Nutritional Appearance: average body habitus and well nourished Orientation: alert and awake Eyes General: appearance normal, both eyes and all related structures Neck Neck: normal visual inspection, full ROM, no lymphadenopathy and no meningeal signs Resp Effort & Inspection: normal respiratory effort and able to speak in complete sentences Auscultation: clear to auscultation bilaterally, no rales, no rhonchi and no wheezes Cardio Rate: regular rate Rhythm: regular rhythm Heart Sounds: S1 normal and S2 normal Back/Spine/Pelvis Back: no CVA tenderness Thoracic/Lumbar Spine: thoracic and lumbar spine normal to inspection, thoraco-lumbar ROM normal, No mass, No paraspinal tenderness, No thoraco-lumbar ROM limited, No thoracic spinal tenderness and No lumbar spinal tenderness Pelvis: no pain with anterior-posterior compression and no pain with lateral compression Sacroiliac joints: on the left (Over SI and just superior) tender to palpation Skin General skin exam: no rashes or lesions noted Neuro General: patient alert and patient awake Cognition: normal cognition Speech: speech normal Gait: normal gait Motor: muscle tone normal throughout, strength 5/5 throughout, no movement abnormalities noted and no fasciculations Sensory Exam: no sensory deficits noted (no saddle paresthesias) DTR's: Rt Patellar: 2+ and Lt Patellar: 2+ Extrem General: normal to inspection, full ROM, capillary refill normal, no joint enlargement, no pedal edema, no calf tenderness and normal gait Course Vital Signs Vital signs: Vital Signs Temperature 36.1 C L 12/23/23 16:35 Pulse 68 12/23/23 16:35 Respiratory Rate 16 12/23/23 16:35 Blood Pressure 132/68 12/23/23 16:35 Pulse Oximetry 96 12/23/23 16:35 Temperature 36.1 C L 12/23/23 16:35 Temperature Source Temporal Artery Scan 12/23/23 16:35 Pulse 68 12/23/23 16:35 Respiratory Rate 16 12/23/23 16:35 Respiratory Effort Normal 12/23/23 16:40 Blood Pressure 132/68 12/23/23 16:35 Pulse Oximetry 96 12/23/23 16:35 Oxygen Delivery Method Room Air 12/23/23 16:35 Oxygen Flow Rate 0 12/23/23 16:35 Pain Level 9 12/23/23 16:35 Medical Decision Making Patient is an 88-year-old male, companied by his significant other, with past medical history significant for AAA, endovascular stent graft, AL with stents, diabetes, CKD, CHF, ischemic cardiomyopathy, previous colectomy, hyperlipidemia, brought in by friend with c/c of continued back pain. He was seen here a few days ago for the same. At that time, CT and labs were pursued without any acute abnormality. Assumed to be associated with degenerative changes in the back which did correlate with the level of his discomfort. Patient denies any trauma. He denies any change in bowel or bladder habits. No fevers or chills. He has not had any worsening of the pain but rather, pain has persisted. Patient was initially prescribed gabapentin as well as prednisone but has not received these. It sounds like [facility], he had wanted to slate picker his medications for discomfort acutely at local pharmacy so has not been able to get these. He denies any weakness, sensory changes. The patient and his friend reports that he is largely sedentary and sitting in a recliner fairly slumped forward and sleeping through the majority of the day. This is baseline for the patient and not associated with his back pain. Patient reports that the back pain is a chronic issue but has been acutely worsening, unknown cause. On exam, patient appears nontoxic. He is hemodynamically stable. He is neurologically intact. He has no midline tenderness. No step-off, erythema. He has no paraspinal tenderness. Pain is localized to focal area over the left SI joint as well as just superior to this area. He has no saddle paresthesias. 5 out of 5 strength in bilateral lower extremities. No CVA tenderness. Discussed continued management with the patient. Patient is a diabetic, insulin-dependent and does not check his glucose regularly. I am hesitant to pursue steroids for that reason. I am not convinced that they will change the frequency with which they check his glucose and patient and his caregiver are both nervous regarding this as well. As the pain seems to be significantly worse after periods of being immobile, and location, primarily concern for muscular pain and feel that small dose of muscle relaxer may be greatly beneficial. His primary care is also encouraged him to be more active, I believe a referral to physical therapy would also be of benefit. Encourage hydration. Advise he can continue with the Tylenol to help with discomfort. Will also apply a Lidoderm patch. Advised that they are able to pick these up at the pharmacy, at their request we will also [facility] a [facility]. Encouraged follow-up with primary care. Return precautions were discussed. Discussed safe usage of the muscle relaxer. All of their questions and concerns were addressed and he is in agreement this plan. Quality:SDOH Health Related Social Needs: No Data to Display PFSH All Active Problems (Updated 12/23/23 @ 18:51 by QUINN Ramirez) Back pain (Acute) Gout of left knee (Acute) Trigger thumb of left hand (Acute) Acute kidney injury superimposed on CKD (Acute) Severe sepsis (Acute) Chronic kidney disease, stage 4 (severe) (Acute) Medication management (Acute) amiodarone for afib EKG Q 12 Months RH HTN (hypertension) (Acute) CAD (coronary artery disease) (Chronic) Dermatitis (Acute) Atrial fibrillation (Chronic) Chest pain (Acute) Acute non-ST elevation myocardial infarction (NSTEMI) (Acute) Wound dehiscence, surgical (Acute) Type 2 diabetes mellitus (Chronic) Fatty liver (Acute) Chronic kidney disease, stage 3 (Chronic) Mass of salivary gland (Acute) Ischemic cardiomyopathy (Chronic) Skin lesion of scalp (Acute) Anemia (Chronic) Hearing impairment (Acute) Medical History HLD (hyperlipidemia) Former smoker Balanitis Atrial flutter Edema Cruz's disease Phimosis (10/17/15) Erectile dysfunction AAA (abdominal aortic aneurysm) Hypomagnesemia CHF (congestive heart failure) Renal insufficiency 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) Diverticulitis of large intestine with abscess Hypercholesterolemia Diabetes mellitus Myocardial infarct Phimosis Surgical History Status post colostomy takedown (~03/01/20) S/P left hemicolectomy (~07/19/18) H/O phimosis s/p repair History of heart artery stent S/P hernia repair History of endovascular stent graft for abdominal aortic aneurysm (AAA) Social History Smoking/Tobacco Use Status: Former Tobacco Use Quit Date: 01/03/17 Tobacco: How many years used: 60 Smoking risk assessment performed?: Yes Alcohol Intake: former Drug use: Never Substance use type: does not use Housing: house Do you feel safe at home: Yes Do you feel safe in your relationship?: Yes
[2023-12-23] MEDS: Methocarbamol 500 MG TAB PO (19:10)
[2023-12-23] MEDS: Lidocaine 5% Patch 1 PATCH TP (19:10)
== END 2023-12-23 19:11 | disposition home or self-care (01) ==
PROVIDERS: Emergency Provider Physician Assistant; PCP Student in an Organized Health Care Education/Training Program
DX: M54.50 Low back pain, unspecified (principal)
CPT/HCPCS: 99283

== ENCOUNTER 2023-12-24 06:20 | Emergency (ER) | payer MEDICARE, SELFPAY ==
[2023-12-24] VITALS (21 sets, daily range): BP systolic 111–164; BP diastolic 52–78; PULSE 56–75; RESP 14–18; TEMP 36.2–36.9; O2SAT 88–98
--- NOTE | 2023-12-24 06:15 | RT.EKG_ITS ---
APPROVED REPORT Exam: Resting ECG Reason for Exam: severe abd pain Patient Location: E HR:67 bpm ECG Measurements Heart Rate 67 AXIS KY 290 P -37 QRSd 109 QRS 1 QT 470 T 29 QTc 494 Conclusion Sinus rhythm...normal P axis, V-rate 60- 99 Prolonged KY interval...KY >220, V-rate 50- 90 Physician: no stemi
--- OUTSIDE RECORDS SUMMARY | 2023-12-24 06:52 | XMS_ITS | Encounter Summary ---
Author Organization [facility] Address [address] [place] [address] Care Team Providers Care Data Control Clerk Supervisor Name Role Phone Unavailable Primary Care Provider Unavailabl e Encounter Details Date Type Department Care Team (Late st Contact Info) Description 08/06/2001 Results Only [facility] [address] [place] [address] Arely Schroeder MD [address] [place] [id number] Social History Tobacco Use Types Packs/Day Years [...] CALI THOMPSON Mamie ? Accession #: ? [id number] ? : ? 1935 (Age: 65) ??M [...] Schroeder MD PATHOLOGY ORDERABLES Performing Organization Address City/State/[facility] Co de Phone Number [facility] [address] [place] [address] documented in this encounter Visit Diagnoses Not on filedocumented in this encounter
--- OUTSIDE RECORDS SUMMARY | 2023-12-24 06:52 | XMS_ITS | Encounter Summary ---
Author Organization [facility] Address [address] [place] [address] Care Team Providers Care Legal Job Titles Name Role Phone Rolando Moise MD Primary Care Provider [phone] Encounter Details Date Type Department Care Team (Late st Contact Info) Description 07/22/2022 Lab Requisition [facility] Pathology & Laboratory Medicine - [address] [address] Outr Resulting Lab, Provider Social [...] 19 - 88 pg/mL 07/22/2022 22:48 EDT [facility] Blood VENOUS BLOOD / Unknown 07/22/2022 11:00 EDT 07/22/2022 21:28 EDT Provider Outr Resulting Lab CHEMISTRY & BLOOD GAS ORDERABLES [facility] [address] [place] [address] documented in this encounter Visit Diagnoses Not on filedocumented in this encounter Care Teams Legal Job Titles Relationship Specialty Start Date End Date Rolando Moise MD [facility] [place] [address] PCP - General 10/30/16 documented as of this encounter
--- OUTSIDE RECORDS SUMMARY | 2023-12-24 06:52 | XMS_ITS | Encounter Summary ---
Author Organization [facility] Address [address] [place] [address] Care Team Providers Care Print Shop Helper Name Role Phone Rolando Moise MD Primary Care Provider [phone] Encounter Details Date Type Department Care Team [...] on filedocumented in this encounter Care Teams Print Shop Helper Relationship Specialty Start Date End Date Rolando Moise MD [facility] [place] [address] PCP - General 10/30/16 documented as of this encounter
--- OUTSIDE RECORDS SUMMARY | 2023-12-24 06:52 | XMS_ITS | Encounter Summary ---
Author Organization [facility] [place] [address] Care Team Providers Care Sander Operator Name Role Phone Rolando Moise MD Primary Care Provider [phone] Encounter Details Date Type Department Care Team (Late st Contact Info) Description 07/25/2023 Telephone [place] [phone] Migue Ahn Social History Tobacco Use Types [...] 1:30 PM EDT Laboratory Appointment Lab [address] [place] [phone] 01/02/2024 3:00 PM EDT Office Visit Ne[place] [address] Adam Costa MD [facility] [place] [address] documented as of this encounter Visit Diagnoses Not on filedocumented in this encounter Care Teams Sander Operator Relationship Specialty Start Date End Date Rolando Moise MD [address] [place] [address] [place] [address] PCP - General Family Medicine 09/16/16 documented as of this encounter
--- OUTSIDE RECORDS SUMMARY | 2023-12-24 06:52 | XMS_ITS | Encounter Summary ---
Author Organization [facility] Address [address] [place] [address] Care Team Providers Care Lead Applier Name Role Phone Rolando Moise MD Primary Care Provider [phone] Encounter Details Date Type Department Care Team (Late st Contact Info) Description 04/24/2020 Lab Requisition [facility] Pathology & Laboratory Medicine - [facility] [address] [place] [address] Dana Quijano MD [address] [place] [phone] Encounter for other general examination Social History [...] Diagnosis See scanned downtime report. 04/24/2020 13:02 [facility] Attestation Report electronically released by Rubén Adair on 04/24/20 . 04/24/2020 13:02 [facility] Performing Lab [facility] 04/24/2020 13:02 EST [facility] Scanned Images 04/24/2020 13:02 EST [facility] Tissue ENTIRE APPENDIX / Unknown 03/01/2020 12:10 EDT 04/24/2020 13:00 EST Dana Quijano MD PATHOLOGY ORDERA CHILOS [facility] [address] [place] [address] documented in this encounter Visit Diagnoses Diagnosis Encounter for other general examination documented in this encounter Care Teams Lead Applier Relationship Specialty Start Date End Date Rolando Moise MD [address] [place] [address] PCP - General 10/30/16 documented as of this encounter
--- OUTSIDE RECORDS SUMMARY | 2023-12-24 06:52 | XMS_ITS | Encounter Summary ---
Author Organization [facility] Address [address] [place] [address] Care Team Providers Care Roofer Gypsum Name Role Phone Rolando Moise MD Primary Care Provider [phone] Encounter Details Date Type Department Care Team (Late st Contact Info) Description 03/06/2023 Lab Requisition [facility] Pathology & Laboratory Medicine - [address] [id number] Outr Resulting Lab, Provider Social History Tobacco [...] 19 - 88 pg/mL 03/07/2023 18:47 EDT [facility] Blood VENOUS BLOOD / Unknown 03/06/2023 15:45 EDT 03/07/2023 18:28 EDT Provider Outr Resulting Lab CHEMISTRY & BLOOD GAS ORDERABLES [facility] [address] [place] [address] documented in this encounter Visit Diagnoses Not on filedocumented in this encounter Care Teams Roofer Gypsum Relationship Specialty Start Date End Date Rolando Moise MD [address] [place] [address] PCP - General 10/30/16 documented as of this encounter
--- OUTSIDE RECORDS SUMMARY | 2023-12-24 06:52 | XMS_ITS | Encounter Summary ---
Author Organization [facility] Address [address] [place] [address] Care Team Providers Care Dietitian Consultant Name Role Phone Rolando Moise MD Primary Care Provider [phone] Encounter Details Date Type Department Care Team (Late st Contact Info) Description 02/25/2020 Lab Requisition [facility] Pathology & Laboratory Medicine - [facility] [address] [place], [place] [address] Outr Resulting Lab, Provider Social History Tobacco [...] rt-PCR Result NEGATIVE Negative 02/26/2020 11:54 EDT [facility] Comment: 2019-novel Coronavirus (2019-nCoV) [...] in accordance with CLIA regulations, [employer] (CAP) guidelines (Jul 22, 2019), and FDA guidance (Jul 03, 2019). This test is only for use under the Food and Drug Administration's Emergency Use Authorization. Swab ENTIRE NASOPHARYNX / Unknown 02/25/2020 9:11 EDT 02/25/2020 15:49 EDT Provider Outr Resulting Lab MICROBIOLOGY - GENERAL ORDERABLES [facility] [place] * COVID-19 TESTING (02/25/2020 9:11 EDT) COVID-19 rt-PCR Result NEGATIVE Negative 02/26/2020 12:38 EDT [facility] Comment: 2019-novel Coronavirus (2019-nCoV) not detected [...] in accordance with CLIA regulations, [employer] (CAP) guidelines (Jul 22, 2019), and FDA guidance (Jul 03, 2019). This test is only for use under the Food and Drug Administration's Emergency Use Authorization. Performing Lab [facility] 02/26/2020 12:38 EDT [facility] Swab 02/25/2020 9:11 EDT 02/25/2020 15:49 EDT Provider Outr Resulting Lab MICROBIOLOGY - GENERAL ORDERABLES [facility] [address] [place] [address] [facility] [place] documented in this encounter Visit Diagnoses Not on filedocumented in this encounter Care Teams Dietitian Consultant Relationship Specialty Start Date End Date Rolando Moise MD [facility] [place] [address] [place] [address] PCP - General 10/30/16 documented as of this encounter
--- OUTSIDE RECORDS SUMMARY | 2023-12-24 06:52 | XMS_ITS | Encounter Summary ---
Author Organization [facility] Address [address] [place] [address] Care Team Providers Care Senior Manager Creative Services Name Role Phone Rolando Moise MD Primary Care Provider [phone] Encounter Details Date Type Department Care Team (Late st Contact Info) Description 10/06/2023 Lab Requisition [facility] Pathology & Laboratory Medicine - [address] [phone] Outr Resulting Lab, Provider Social History Tobacco [...] Lyme Ab Negative Negative 10/07/2023 10:22 EDT [facility] Blood VENOUS BLOOD / Unknown 10/06/2023 0:04 EDT 10/06/2023 16:59 EDT Provider Outr Resulting Lab IMMUNOLOGY A ND SEROLOGY ORDERABLES [facility] [address] [place] [address] documented in this encounter Visit Diagnoses Not on filedocumented in this encounter Care Teams Senior Manager Creative Services Relationship Specialty Start Date End Date Rolando Moise MD [address] [place] [address] PCP - General 10/30/16 documented as of this encounter
--- OUTSIDE RECORDS SUMMARY | 2023-12-24 06:52 | XMS_ITS | Referral Summary ---
Author Organization [facility] Address [address] [place] [address] Care Team Providers Care Senior Maintenance Machinist Name Role Phone Rolando Moise MD Primary Care Provider [phone] Encounters Date Type Department Care Team Description 10/10/2023 Lab Requisition [facility] Pathology & Laboratory [address] [address] Outr Resulting Lab, Provider 10/06/2023 Lab Requisition [facility] Pathology & Laboratory [address] [address] Outr Resulting Lab, Provider from Last 3 [...] Lyme Ab Negative Negative 10/13/2023 13:01 EDT [facility] Blood VENOUS BLOOD / Unknown 10/09/2023 14:15 EDT 10/10/2023 17:29 EDT Provider Outr Resulting Lab IMMUNOLOGY A ND SEROLOGY ORDERABLES [facility] [address] [place] [address] from Last 3 Months Care Teams Senior Maintenance Machinist Relationship Specialty Start Date End Date Rolando Moise MD [address] [place] [address] PCP - General 10/30/16
--- OUTSIDE RECORDS SUMMARY | 2023-12-24 06:52 | XMS_ITS | Encounter Summary ---
Author Organization [facility] Address [facility] [place] [address] Care Team Providers Care Cv/Cvn Cv Tsc System Operator Name Role Phone Rolando Moise MD Primary Care Provider [phone] Encounter Details Date Type Department Care Team (Late st Contact Info) Description 11/09/2020 Telephone [place] [phone] Evan Sinclair MD [facility] [place] [address] Social History Tobacco Use Types Packs/Day Years [...] 1:30 PM EDT Laboratory Appointment Lab [address] [place] [address] 01/02/2024 3:00 PM EDT Office Visit Nephrology [place] [address] Adam Costa MD [facility] [place] [address] documented as of this encounter Visit Diagnoses Not on filedocumented in this encounter Care Teams Cv/Cvn Cv Tsc System Operator Relationship Specialty Start Date End Date Rolando Moise MD [facility] [place] [address] PCP - General Family Medicine 09/16/16 documented as of this encounter
--- OUTSIDE RECORDS SUMMARY | 2023-12-24 06:52 | XMS_ITS | Encounter Summary ---
Author [facility] [place] [address] Care Team Providers Care Rhia Name Role Phone Rolando Moise MD Primary Care Provider [phone] Reason for Referral * Diagnostic Test (Routine) - Authorized Specialty Diagnoses / Procedures Referred By Teodoro robertson Referred To Contact Radiology Diagnoses Infrarenal abdominal aortic aneurysm (AAA) without rupture Procedures CT Angiogram Abdomen & Pelvis w Contrast (Generic) Pascale Barboza APRN [facility] [place] [address] [facility] [place] [address] Referral ID Status Reason Start Date Expiration Date Visits Requested Visits Authorized [id number] Authorized Specialty Service Requested 06/16/2023 12/14/2024 1 1 Encounter Details Date Type Department Care Team (Late st Contact Info) Description 06/16/2023 Orders Only [place] [address] Pascale Barboza APRN [facility] [place] [address] Infrarenal abdominal aortic aneurysm (AAA) [...] 1:30 PM EDT Laboratory Appointment Lab [address] [place] [address] 01/02/2024 3:00 PM EDT Office Visit Nephrology [place] [address] Adam Costa MD [facility] [place] [address] Scheduled Orders Name Type Priority Associated Diagnoses Orde r Schedule CT Angiogram Abdomen & Pelvis w Contrast (Generic) Imaging Routine Infrarenal abdominal aortic aneurysm (AAA) without rupture Expected: 07/15/2023, Expires: 06/16/2024 documented as of this encounter Visit Diagnoses Diagnosis Infrarenal abdominal aortic aneurysm (AAA) without rupture documented in this encounter Care Teams Rhia Relationship Specialty Start Date End Date Rolando Moise MD [address] [place] [address] PCP - General Family Medicine 09/16/16 documented as of this encounter
--- OUTSIDE RECORDS SUMMARY | 2023-12-24 06:52 | XMS_ITS | Encounter Summary ---
Author Organization [facility] Address [address] [place] [address] Care Team Providers Care Furnace Combination Analyst Name Role Phone Rolando Moise MD Primary Care Provider [phone] Encounter Details Date Type Department Care Team (Late st Contact Info) Description 10/10/2023 Lab Requisition [facility] Pathology & Laboratory Medicine - [address] [phone] Outr Resulting Lab, Provider Social History Tobacco [...] Lyme Ab Negative Negative 10/13/2023 13:01 EDT [facility] Blood VENOUS BLOOD / Unknown 10/09/2023 14:15 EDT 10/10/2023 17:29 EDT Provider Outr Resulting Lab IMMUNOLOGY A ND SEROLOGY ORDERABLES [facility] [address] [place] [address] documented in this encounter Visit Diagnoses Not on filedocumented in this encounter Care Teams Furnace Combination Analyst Relationship Specialty Start Date End Date Rolando Moise MD [address] [place] [address] PCP - General 10/30/16 documented as of this encounter
--- OUTSIDE RECORDS SUMMARY | 2023-12-24 06:52 | XMS_ITS | Encounter Summary ---
Author Organization [facility] [place] [address] Care Team Providers Care Acid Correction Hand Name Role Phone Rolando Moise MD Primary Care Provider [phone] Encounter Details Date Type Department Care Team (Late st Contact Info) Description 07/25/2023 Telephone [place] [address] Migue Ahn Social History Tobacco [...] 1:30 PM EDT Laboratory Appointment Lab [address] [place] [phone] 01/02/2024 3:00 PM EDT Office Visit Nephrology [place] [address] Adam Costa MD [facility] [address] documented as of this encounter Visit Diagnoses Not on filedocumented in this encounter Care Teams Acid Correction Hand Relationship Specialty Start Date End Date Rolando Moise MD [address] [place] [address] [place] [address] PCP - General Family Medicine 09/16/16 documented as of this encounter
--- OUTSIDE RECORDS SUMMARY | 2023-12-24 06:52 | XMS_ITS | Clinical Summary ---
Author Organization [facility] Address [address] [place] [address] Care Team Providers Care Instructor Wastewater Treatment Plant Name Role Phone Rolando Moise MD Primary Care Provider [phone] Encounters Date Type Department Care Team Description 10/10/2023 Lab Requisition [facility] Pathology & Laboratory [address] [address] Outr Resulting Lab, Provider 10/06/2023 Lab Requisition [facility] Pathology & Laboratory [address] [address] Outr Resulting Lab, Provider from Last 3 [...] Lyme Ab Negative Negative 10/13/2023 13:01 EDT [facility] Blood VENOUS BLOOD / Unknown 10/09/2023 14:15 EDT 10/10/2023 17:29 EDT Provider Outr Resulting Lab IMMUNOLOGY A ND SEROLOGY ORDERABLES Performing Organization Address City/State/[facility] Co de Phone Number [facility] [address] [place] [address] from Last 3 Months Care Teams Instructor Wastewater Treatment Plant Relationship Specialty Start Date End Date Rolando Moise MD [facility] [address] [place] [address] PCP - General 10/30/16
--- OUTSIDE RECORDS SUMMARY | 2023-12-24 06:52 | XMS_ITS | Clinical Summary ---
Author Organization [facility] Address [facility] [place] [address] Care Team Providers Care Screen Printing Inspector Name Role Phone Rolando Moise MD Primary Care Provider [phone] Allergies No known active allergies Medications Medication [...] gauge x 5/16 Syringe 1 Box by [facility].(Non-Drug; Combo Route) route as needed. 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 He also tolerates house/yard work fine [...] Department Care Team Description 12/16/2023 [place] [address] Nimisha Olmos from Last 3 [...] 1:30 PM EDT Laboratory Appointment Lab [address] [place] [address] 01/02/2024 3:00 PM EDT Office Visit [place] [address] Adam Costa MD [facility] [place] [address] Health Maintenance Due Date Last Done Comments [...] 01/04/2024 02/05/2017 Medical Devices Implanted Type Area Postpartum Nurse Device Identifier Shelf Expiration Date Model / Serial / Lot Graft,Zfa,Mbdy ,[id number] ([id number]) (Autoreq) - [id number] Implanted:Qty: 1 on 04/12/2011 at [facility] IMPLANTS N/A: Aorta 03/13/2012 TFFB-32-82 -ZT / [id number] / [id number] Graft,Zfa,Ciil ,[id number],[id number] ([id number]) ([employer]ore[employer]) - [id number] Implanted:Qty: 1 on 04/12/2011 at [facility] IMPLANTS Right: Abdomen 08/11/2012 TFLE-16-56 -ZT / [id number] / [id number] Description:right iliac Graft,Zfa,Ciil ,Ztk,[id number] ([id number]) ([employer]oreq) - [id number] Implanted:Qty: 1 on 04/12/2011 at [facility] IMPLANTS Left: Abdomen 03/13/2012 TFLE-16-73 -ZT / [id number] / [id number] Procedures Procedure Name Priority Date/Time Associated Diagnosis [...] Glucose Fasting 196(H) 65 - 99 mg/dL [facility] Comment: ?Fasting* Glucose Interpretive Criteria [...] of Diabetes Mellitus, Position Statement from the [place] [employer]. ??Diabetes Care, Volume 33, Supplement 1, May 2009 Blood Urea Nitrogen 26(H) 10 - 20 mg/dL [facility] Creatinine 1.64(H) 0.80 - 1.50 mg/dL [facility] Sodium 136 135 - 145 mmol/L [facility] Potassium 4.2 3.5 - 5.0 mmol/L [facility] Comment: Please note: ??Patients with WBC >100,000 may have falsely elevated Potassium levels. ??For accurate Potassium quantification in these patients send serum separator tube (gold top) for subsequent determinations. ??Contact the Clinical Chemistry Laboratory if there are any questions. Chloride 102 98 - 107 mmol/L [facility] Carbon Dioxide 23 22 - 31 mmol/L [facility] Anion Gap 11 5 - 15 mmol/L [facility] Calcium 8.8 8.5 - 10.5 mg/dL [facility] Est Glomerular Filtration Rate 38(L) >=60 mL/min/1. 73 m?? [facility] Comment: This patient? s estimated [...] Lab Maximino Mcallister MD CHEMISTRY ORDERABL ES [facility] [place] [address] * (ABNORMAL) Hemoglobin A1c (11/07/2020 8:50 AM EDT) Hemoglobin A1c 11.3(H) 4.3 - 5.6 % [facility] Comment: Reference Range: 4.3 - [...] Mellitus, Diabetes Care 2013; 36: Suppl. 1, S67-81 Estimated Average Glucose See note mg/dL [facility] Comment: Estimated Average Glucose not [...] into estimated average glucose values. ??Diabetes Care 2008:31(8):7919-9876. Blood Venous Draw / Unknown 11/07/2020 8:50 AM EDT 11/07/2020 11:00 AM EDT Narrative Resulting Agency Comment Spec In Lab Evan Sinclair MD CHEMISTRY ORDERABLES Performing Organization Address City/State/[facility] Co de Phone Number [facility] [place] [address] from Last 3 Months or Most Recently [...] is based on Patients wishes. Care Teams Screen Printing Inspector Relationship Specialty Start Date End Date Rolando Moise MD [address] [place] [address] PCP - General Family Medicine 09/16/16
--- OUTSIDE RECORDS SUMMARY | 2023-12-24 06:52 | XMS_ITS | Encounter Summary ---
Author Organization [facility] Address [facility] [place] [address] Care Team Providers Care Web Development Director Name Role Phone Rolando Moise MD Primary Care Provider [phone] Encounter Details Date Type Department Care Team (Late st Contact Info) Description 09/01/2023 Orders [place] [phone] Estela Jesus RN Infrarenal abdominal aortic aneurysm [...] 1:30 PM EDT Laboratory Appointment Lab [address] [place] [address] 01/02/2024 3:00 PM EDT Office Visit [place] [address] Adam Costa MD [facility] [place] [address] Scheduled Orders Name Type Priority Associated Diagnoses Orde r Schedule Creatinine Lab STAT Infrarenal abdominal aortic aneurysm (AAA) without rupture Expected: 09/01/2023, Expires: 08/31/2024 documented as of this encounter Visit Diagnoses Diagnosis Infrarenal abdominal aortic aneurysm (AAA) without rupture documented in this encounter Care Teams Web Development Director Relationship Specialty Start Date End Date Rolando Moise MD [address] [place] [address] PCP - General Family Medicine 09/16/16 documented as of this encounter
--- OUTSIDE RECORDS SUMMARY | 2023-12-24 06:52 | XMS_ITS | Encounter Summary ---
[place] [address] Care Team Providers Care Road Mixer Operator Name Role Phone Rolando Moise MD Primary Care Provider [phone] Reason for Referral * Consultation (Routine) - Closed Specialty Diagnoses / Procedures Referred By Contac t Referred To Contact Nephrology Diagnoses Chronic kidney disease, stage IV (severe) Rolando Moise MD [address] [place] [address] [facility] [address] [place] [address] Referral ID Status Reason Start Date Expiration Date V isits Requested Visits Authorized [id number] Closed Consult, Test & Treat PCP Updated and/or Approved 02/28/2022 02/28/2023 6 6 Encounter Details Date Type Department Care Team (Latest Contact Info) Description 02/28/2022 Transcribe Orders eDH Incoming Referrals [phone] Rolando Moise MD [address] [place] [address] Chronic kidney disease, stage IV (severe) [...] PM EDT Laboratory Appointment Lab [address] [place] [address] 01/02/2024 3:00 PM EDT Office Visit [place] [address] Adam Costa MD [facility] [place] [address] Scheduled Referrals Name Type Priority Associated Diagnoses Order Schedule Referral to Nephrology Outpatient Referral Routine Chronic kidney disease, stage IV (severe) Ordered: 02/28/2022 documented as of this encounter Visit Diagnoses Diagnosis Chronic kidney disease, stage IV (severe) Chronic kidney disease, Stage IV (severe) documented in this encounter Care Teams Road Mixer Operator Relationship Specialty Start Date End Date Rolando Moise MD [address] [place] [address] PCP - General Family Medicine 09/16/16 documented as of this encounter
--- OUTSIDE RECORDS SUMMARY | 2023-12-24 06:52 | XMS_ITS | Encounter Summary ---
Author Organization [facility] Address [address] [place] [address] Care Team Providers Care Gaming Director Name Role Phone Arely Moise MD Primary Care Provider [phone] Encounter Details Date Type Department Care Team (Late st Contact Info) Description 07/19/2018 Results Only [facility] [phone] Aga Reynaga MD [address] [place] [address] Social History Tobacco Use Types [...] ? CALI THOMPSON ? Accession #: ? [id number] ? : ? 1935 (Age: 82) ??M [...] folds. The uninvolved serosa is unremarkable. ? Hole Filler sections are submitted as follows: BLOCK MOREJON 1- ??proximal margin including diverticula 2- ??distal margin 3-4- ??area of perforation site, full thickness, bisected 5-6- ??area of perforation site, full thickness, bisected 7- ??diverticula Dr. Goode 07/21/2018 1:42 PM End of Report [facility] 07/19/2018 11:1 2 EDT 07/20/2018 11:12 EDT Aga Reynaga MD PATHOLOGY ORDERA JAZZY [facility] [address] [place] [address] documented in this encounter Visit Diagnoses Not on filedocumented in this encounter Care Teams Gaming Director Relationship Specialty Start Date End Date Arely [place] [address] [place] [address] PCP - General 10/30/16 documented as of this encounter
--- OUTSIDE RECORDS SUMMARY | 2023-12-24 06:52 | XMS_ITS | Encounter Summary ---
Author Organization [facility] Address [place] [address] Care Team Providers Care Body Masker Name Role Phone Rolando Moise MD Primary Care Provider [phone] Reason for Visit * Reason Onset Date Comments Other 11/10/2020 Encounter Details Date Type Department Care Team (Late st Contact Info) Description 11/10/2020 Telephone Cardiology at [address] [phone] Antonia Martin, RN Other Social History Tobacco [...] PM EDT Call from Mercedes SANDERS from [facility] [phone],questions regarding [facility] discharge (yesterday 11/09/20) medications. Return call to Mercedes,voice message left directing her to contact [facility] -contact # given. manager telemarketing while inpatient Penny Bee RN. documented in this encounter Plan of Treatment Upcoming Encounters Date Type Department Care Team (Latest Contact Info) Description 01/02/2024 1:30 PM EDT Laboratory Appointment Lab [address] [place] [address] 01/02/2024 3:00 PM EDT Office Visit Nephrology [place] [address] Adam Costa MD [facility] [place] [address] documented as of this encounter Visit Diagnoses Not on filedocumented in this encounter Care Teams Body Masker Relationship Specialty Start Date End Date Rolando Moise MD [address] [place] [address] [place] [address] PCP - General Family Medicine 09/16/16 documented as of this encounter
--- OUTSIDE RECORDS SUMMARY | 2023-12-24 06:52 | XMS_ITS | Encounter Summary ---
Author Organization [facility] Address [address] [place] [address] Care Team Providers Care Hand Paster Name Role Phone Rolando Moise MD Primary Care Provider [phone] Encounter Details Date Type Department Care Team (Late st Contact Info) Description 04/05/2021 Lab Requisition [facility] [address] [place] [address] Rolando Moise MD [address] [place] [address] [place], [place] [id number] Encounter for other general examination Social History [...] management options, if applicable. 04/06/2021 11:57 EST [facility] Final Diagnosis A. SKIN OF BACK, RIGHT, PUNCH BIOPSY: -Focal acantholytic dyskeratosis. See comment. 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 04/06/2021 11:57 [facility] Attestation By the signature below, the attending physician certifies that they have 1) personally conducted a gross and/or microscopic examination of the described specimen(s), and/or personally interpreted the results of laboratory testing of the described specimen(s), and 2) personally rendered or confirmed the above diagnosis. 04/06/2021 11:57 [facility] at 1157 Clinical History Inflammatory rash; drug eruption? 04/06/2021 11:57 [facility] Gross Description A. Received in formalin labelled with proper patient identification (initials M, G) and R back, inflammatory rash eruption is a francisco-white and francisco-brown skin punch biopsy measuring 0.5 cm in diameter and excised to a depth of 0.5 cm. Bisected and submitted entirely in A1. QUINN ALY(ASCP) 04/05/2021 19:57 04/06/2021 11:57 [facility] Performing Lab [facility] 04/06/2021 11:57 [facility] Scanned Images 04/06/2021 11:57 [facility] Tissue TISSUE SPECIMEN FROM SKIN / Unknown 04/04/2021 16:00 EST 04/05/2021 17:51 EST Rolando Moise MD PATHOLOGY ORDERABLES [facility] [address] [place] [address] documented in this encounter Visit Diagnoses Diagnosis Encounter for other general examination documented in this encounter Care Teams Hand Paster Relationship Specialty Start Date End Date Rolando Moise MD [facility] [place] [address] PCP - General 6/28/17 documented as of this encounter
--- OUTSIDE RECORDS SUMMARY | 2023-12-24 06:52 | XMS_ITS | Encounter Summary ---
Author Organization [facility] Address [facility] [place] [address] Care Team Providers Care Observer Gravity Prospecting Name Role Phone Rolando Moise MD Primary Care Provider [phone] Encounter Details Date Type Department Care Team [...] 1:30 PM EDT Laboratory Appointment Lab [address] [place] [address] 01/02/2024 3:00 PM EDT Office Visit Ne[place] [address] Adam Costa MD [facility] [place] [address] documented as of this encounter Visit Diagnoses Not on filedocumented in this encounter Care Teams Observer Gravity Prospecting Relationship Specialty Start Date End Date Rolando Moise MD [facility] [place] [address] PCP - General Family Medicine 09/16/16 documented as of this encounter
--- OUTSIDE RECORDS SUMMARY | 2023-12-24 06:52 | XMS_ITS | Encounter Summary ---
Author Organization [facility] Address [address] [place] [address] Care Team Providers Care Car Unloader Name Role Phone Rolando Zacarias MD Primary Care Provider [phone] Encounter Details Date Type Department Care Team (Latest Contact Info) Description 10/28/2016 9:45 EDT - 10/28/2016 23:59 EDT Hospital Encounter [facility] [address] [place] [address] Unknown, Provider, Discharge Disposition: Home or Self Care Social History Tobacco Use Types Packs/Day Years Used Date Smoking Tobacco: Never Assessed Sex and Gender Information Value Date Recorded Sex Assigned at Not on file Gender Identity Not on file Sexual Orientation Not on file documented as of this encounter Discharge Disposition Disposition Code Departure Means Destination Home or Self Jail documented in this encounter Plan of Treatment Not on file documented as of this encounter Visit Diagnoses Not on filedocumented in this encounter Care Teams Car Unloader Relationship Specialty Start Date End Date Rolando Zacarias MD [address] [place] [address] PCP - General 12/17/11 10/29/16 documented as of this encounter
--- OUTSIDE RECORDS SUMMARY | 2023-12-24 06:52 | XMS_ITS | Encounter Summary ---
Author Organization [facility] [address] Care Team Providers Care District Associate Judge Name Role Phone Rolando Moise MD Primary Care Provider Reason for Referral * Consultation (Routine) - Closed Specialty Diagnoses / Procedures Referred By Contac t Referred To Contact Vascular Surgery Diagnoses Abdominal aortic aneurysm (AAA) without rupture, unspecified part ROUTINE, ELPIDIO/, CT AAA Rolando Moise MD [address] [place] [address] [facility] [address] [place] [address] Referral ID Status Reason Start Date Expiration Date V isits Requested Visits Authorized [id number] Closed Consult, Test & Treat PCP Updated and/or Approved 06/13/2023 06/12/2024 1 1 Encounter Details Date Type Department Care Team (Latest Contact Info) Description 06/13/2023 Transcribe Orders eDH Incoming Referrals [phone] Rolando Moise MD [address] [place] [address] Abdominal aortic aneurysm (AAA) without rupture, [...] 1:30 PM EDT Laboratory Appointment Lab [address] [place] [address] 01/02/2024 3:00 PM EDT Office Visit Neph[place] [address] Adam Costa MD [facility] [place] [address] Scheduled Referrals Name Type Priority Associated Diagnoses Orde r Schedule Referral to Vascular Surgery Outpatient Referral Urgent Abdominal aortic aneurysm (AAA) without rupture, unspecified part Ordered: 06/13/2023 documented as of this encounter Visit Diagnoses Diagnosis Abdominal aortic aneurysm (AAA) without rupture, unspecified part- Primary documented in this encounter Care Teams District Associate Judge Relationship Specialty Start Date End Date Rolando Moise MD [address] [place] [address] PCP - General Family Medicine 09/16/16 documented as of this encounter
--- OUTSIDE RECORDS SUMMARY | 2023-12-24 06:52 | XMS_ITS | Encounter Summary ---
Author Organization [facility] Address [address] [place] [address] Care Team Providers Care Brush Filler Hand Name Role Phone Rolando Moise MD Primary Care Provider [phone] Encounter Details Date Type Department Care Team (Late st Contact Info) Description 06/06/2020 Lab Requisition [facility] Pathology & Laboratory Medicine - [address] [address] Outr Resulting Lab, Provider Social [...] 19 - 88 pg/mL 06/07/2020 8:52 EST [facility] Blood VENOUS BLOOD / Unknown 06/06/2020 10:30 EST 06/06/2020 19:30 EST Provider Outr Resulting Lab CHEMISTRY & BLOOD GAS ORDERABLES [facility] [address] [place] [address] documented in this encounter Visit Diagnoses Not on filedocumented in this encounter Care Teams Brush Filler Hand Relationship Specialty Start Date End Date Rolando Moise MD [address] [place] [address] PCP - General 10/30/16 documented as of this encounter
--- OUTSIDE RECORDS SUMMARY | 2023-12-24 06:52 | XMS_ITS | Encounter Summary ---
Author Organization [facility] Address [address] [place] [address] Care Team Providers Care Butcher Chicken And Fish Name Role Phone Rolando Moise MD Primary Care Provider [phone] Encounter Details Date Type Department Care Team (Late st Contact Info) Description 08/17/2021 Lab Requisition [facility] Pathology & Laboratory Medicine - [address] [id number] Outr Resulting Lab, Provider Social History Tobacco [...] 19 - 88 pg/mL 08/20/2021 11:29 EDT [facility] Blood VENOUS BLOOD / Unknown 08/16/2021 13:50 EDT 08/17/2021 16:29 EDT Provider Outr Resulting Lab CHEMISTRY & BLOOD GAS ORDERABLES [facility] [address] [place] [address] documented in this encounter Visit Diagnoses Not on filedocumented in this encounter Care Teams Butcher Chicken And Fish Relationship Specialty Start Date End Date Rolando Moise MD [address] [place] [address] PCP - General 10/30/16 documented as of this encounter
--- OUTSIDE RECORDS SUMMARY | 2023-12-24 06:52 | XMS_ITS | Encounter Summary ---
Author Organization [facility] Address [address] [place] [address] Care Team Providers Care Epic Stork Specialists Name Role Phone Unavailable Primary Care Provider Unavailabl e Encounter Details Date Type Department Care Team (Late st Contact Info) Description 12/12/2011 Results Only [facility] Laboratory Services - [facility] ([facility]) [address] [place] [id number] Sharif Salcedo MD [address] [place] [address] Social History Tobacco Use Types Packs/Day Years [...] ? CALI THOMPSON ? Accession #: ? [id number] ? : ? 1935 (Age: 76) ??M ? Collect Date: ? 12/12/2011 ? Location: ? [facility] ? Receive Date: ? 12/13/2011 ? Provider: SHARIF SALCEDO MD Copy to: ARELY VICKERS MD ? Final Pathologic Diagnosis: ? Colon, 35 cm, biopsy: - Cauterized colonic tissue, favor hyperplastic polyp. ??See comment. Comment: ? Deeper sections have been examined. ??(Dr. Bal)/[facility] Document reviewed and electronically signed by: EFARÍN DEY [facility] Report ??Date: 12/17/2011 13:24 By the [...] in toto in a single cassette. ??(Tiffanie Prieto)/[facility] End of Report KAILASH SLAUGHTER 12/12/2011 12/13/2011 8:1 7 EDT Sharif Salcedo MD PATHOLOGY ORDERABLE S KAILASH SLAUGHTER [address] [place] [address] documented in this encounter Visit Diagnoses Not on filedocumented in this encounter
--- OUTSIDE RECORDS SUMMARY | 2023-12-24 06:52 | XMS_ITS | Encounter Summary ---
Author Organization [facility] Address [facility] [place] [address] Care Team Providers Care Cake Puncher Name Role Phone Rolando Moise MD Primary Care Provider [phone] Encounter Details Date Type Department Care Team (Late st Contact Info) Description 12/16/2023 [place] [address] Nimisha Olmos Social History Tobacco [...] 1:30 PM EDT Laboratory Appointment Lab [address] [place] [address] 01/02/2024 3:00 PM EDT Office Visit [place] [address] Adam Costa MD [facility] [place] [address] documented as of this encounter Visit Diagnoses Not on filedocumented in this encounter Care Teams Cake Puncher Relationship Specialty Start Date End Date Rolando Moise MD [address] [place] [address] PCP - General Family Medicine 09/16/16 documented as of this encounter
--- OUTSIDE RECORDS SUMMARY | 2023-12-24 06:52 | XMS_ITS | Encounter Summary ---
Author Organization [place] [address] Care Team Providers Care Slag Worker Name Role Phone Rolando Moise MD Primary Care Provider [phone] Encounter Details Date Type Department Care Team (Late st Contact Info) Description 07/18/2022 Telephone Dermatology at [address] [place] [address] Padmini Maria LPN Social History [...] [facility] [place] [place] Moise's office faxes prescriptions to [phone]. [facility]. documented in this encounter Plan of Treatment Upcoming Encounters Date Type Department Care Team (Latest Contact Info) Description 01/02/2024 1:30 PM EDT Laboratory Appointment Lab [address] [place] [address] 01/02/2024 3:00 PM EDT Office Visit [place] [address] Adam Costa MD [facility] [address] documented as of this encounter Visit Diagnoses Not on filedocumented in this encounter Care Teams Slag Worker Relationship Specialty Start Date End Date Rolando Moise MD [address] [place] [address] PCP - General Family Medicine 09/16/16 documented as of this encounter
--- OUTSIDE RECORDS SUMMARY | 2023-12-24 06:52 | XMS_ITS | Encounter Summary ---
Author Organization [facility] Address [address] [place] [address] Care Team Providers Care Telesales Manager Name Role Phone Rolando Moise MD Primary Care Provider [phone] Encounter Details Date Type Department Care Team (Latest Contact Info) Description 07/19/2018 12:50 EDT - 07/19/2018 23:59 EDT Hospital Encounter [address] [address] Unknown, Provider, Discharge Disposition: Home or Self Care Social History Tobacco Use Types Packs/Day Years Used Date Smoking Tobacco: Never Assessed Sex and Gender Information Value Date Recorded Sex Assigned at Not on file Gender Identity Not on file Sexual Orientation Not on file documented as of this encounter Discharge Disposition Disposition Code Departure Means Destination Home or Self Halfway documented in this encounter Plan of Treatment Not on file documented as of this encounter Visit Diagnoses Not on filedocumented in this encounter Care Teams Telesales Manager Relationship Specialty Start Date End Date Rolando Moise MD [facility] [place] [address] PCP - General 10/30/16 documented as of this encounter
--- OUTSIDE RECORDS SUMMARY | 2023-12-24 06:52 | XMS_ITS | Encounter Summary ---
Author Organization [facility] Address [facility] [place] [address] Care Team Providers Care Retail Sales Representative Name Role Phone Rolando Moise MD Primary Care Provider Reason for Visit * Reason Comments Skin Check * Consultation (Routine) - Closed Specialty Diagnoses / Procedures Referred By Contrachid t Referred To Contact Dermatology Diagnoses Transient acantholytic dermatosis (juan diego) Rolando Moise MD [address] [place] [address] [place] [address] Ashkan Eason MD [address] [place] [address], [facility] [place] [address] Referral ID Status Reason Start Date Expiration Date V isits Requested Visits Authorized [id number] Closed Consult, Test & Treat 06/13/2022 06/13/2023 1 1 Encounter Details Date Type Department Care Team (Late st Contact Info) Description 07/18/2022 11:00 AM EDT Office Visit Dermatology at [address] [address] Ashkan Eason MD [address] [place] [address], [facility] [place] [address] Pruritus; Xerosis cutis Social History [...] a daily basis to the legs. Obtain [id number] 2. Begin wearing Tubigrip stockings during the daytime taking off at night to help reduce his lowerextremity edema. Pruritus, congregational scalp 1. No primary neurologic findings 2. [...] nightly to symptomatic in left temporal scalp.. Aaxhecuy93 mL with 5 refills 6. Return to clinic in another month for repeat check. Pres[facility] will be sent to the [facility]. CC: Rolando Moise MD documented in this encounter Plan of Treatment Upcoming Encounters Date Type Department Care Team (Latest Contact Info) Description 01/02/2024 1:30 PM EDT Laboratory Appointment Lab [address] [place] [address] 01/02/2024 3:00 PM EDT Office Visit Nephrology [place] [address] Adam Costa MD [facility] [place] [address] documented as of this encounter Visit Diagnoses Diagnosis Pruritus Unspecified pruritic disorder Xerosis cutis Other specified disease of sebaceous glands documented in this encounter Care Teams Retail Sales Representative Relationship Specialty Start Date End Date Rolando Moise MD [address] [place] [address] PCP - General Family Medicine 09/16/16 documented as of this encounter
--- OUTSIDE RECORDS SUMMARY | 2023-12-24 06:52 | XMS_ITS | Encounter Summary ---
Author Organization [facility] Address [address] [place] [address] Care Team Providers Care Research Test Engine Operator Name Role Phone Rolando Moise MD Primary Care Provider [phone] Reason for Visit * (Routine) - Receiving Office to Obtain Authorization Specialty Diagnoses / Procedures Referred By Teodoro robertson Referred To Contact Procedures CT OUTSIDE IMAGES BODY Unknown, Provider, Referral ID Status Reason Start Date Expiration Date Visits Requested Visits Authorized [id number] Receiving Office to Obtain Authorization 11/07/2020 1 1 Encounter Details Date Type Department Care Team (Latest Contact Info) Description 11/07/2020 12:01 EDT - 11/07/2020 23:59 EDT Hospital Encounter [facility] Secondary Reads [place] Discharge Disposition: Home [...] on filedocumented in this encounter Care Teams Research Test Engine Operator Relationship Specialty Start Date End Date Rolando Moise [place] [address] [place] [address] PCP - General 10/30/16 documented as of this encounter
--- OUTSIDE RECORDS SUMMARY | 2023-12-24 06:52 | XMS_ITS | Encounter Summary ---
Author Organization [facility] Address [address] [place] [address] Care Team Providers Care Ring Rolling Machine Operator Name Role Phone Rolando Zacarias MD Primary Care Provider [phone] Encounter Details Date Type Department Care Team (Late st Contact Info) Description 10/28/2016 Results Only [facility] [phone] Stephani Beltre, [address] [place] [address] Social History Tobacco Use Types [...] ? CALI THOMPSON ? Accession #: ? [id number] : ? 1935 (Age: 80) ??M ?Collect Date: ? 10/28/2016 Location: ? [facility] ? Receive Date: ? 10/29/2016 Provider: ? STEPHANI BELTRE DO Copy to: ?NILSA PRINCE SOLE TRIMMER ? CYTOLOGIC DIAGNOSIS: A. NECK/TAIL OF PAROTID, [...] with clinical and radiographic findings is essential. ??Transition Nurse slides of this case were reviewed at [...] technique. ? End of Report [facility] 10/28/2016 10/29/2016 9:2 2 EDT Stephani Beltre DO PATHOLOGY ORDER BRIANNE Performing Organization Address City/State/[facility] Co de Phone Number [facility] [address] [place] [address] documented in this encounter Visit Diagnoses Not on filedocumented in this encounter Care Teams Ring Rolling Machine Operator Relationship Specialty Start Date End Date Rolando Zacarias MD [address] [place] [address] PCP - General 12/17/11 10/29/16 documented as of this encounter
--- OUTSIDE RECORDS SUMMARY | 2023-12-24 06:53 | XMS_ITS | Encounter Summary ---
Author Organization [facility] Address [facility] [place] [address] Care Team Providers Care Web Architect Name Role Phone Rolando Moise MD Primary Care Provider [phone] Encounter Details Date Type Department Care Team (Late st Contact Info) Description 11/07/2020 External [place] [address] Social History Tobacco Use Types Packs/Day Years [...] 01/02/2024 1:30 PM EDT Laboratory Appointment Lab [address] [address] 01/02/2024 3:00 PM EDT Office Visit [place] [address] Adam Costa MD [facility] [place] [address] documented as of this encounter Procedures Procedure Name Priority Date/Time Associated Diagnosis Comments ECG SCAN Routine 11/07/2020 documented in this encounter Results * Scan Doc: ECG (11/07/2020) Historical Provider MD MEDIA MGR SCAN EX T ORDR/RSLT documented in this encounter Visit Diagnoses Not on filedocumented in this encounter Care Teams Web Architect Relationship Specialty Start Date End Date Rolando Moise MD [address] [place] [address] PCP - General Family Medicine 09/16/16 documented as of this encounter
--- OUTSIDE RECORDS SUMMARY | 2023-12-24 06:53 | XMS_ITS | Encounter Summary ---
Author Organization [facility] [place] [address] Care Team Providers Care Med Surg Rn Name Role Phone Rolando Moise MD Primary Care Provider Encounter Details Date Type Department Care Team (Late st Contact Info) Description 11/07/2020 4:20 AM EDT Ancillary Procedure [place] [address] Rolando Moise MD [facility] [place] [address] Social History Tobacco Use Types Packs/Day Years [...] 1:30 PM EDT Laboratory Appointment Lab [address] [place] [address] 01/02/2024 3:00 PM EDT Office Visit Neph[place] [address] Adam Costa MD [facility] NEPHROLOGY [place], [place] [address] documented as of this encounter Procedures Procedure Name Priority Date/Time Associated Diagnosis Comments FILM LIBRARY STORAGE ONLY CT CHEST ABDOMEN PELVIS Routine 11/07/2020 4:19 AM EDT documented in this encounter Results * Film Library- Storage Only CT Chest Abdomen Pelvis (11/07/2020 4:19 AM EDT) Narrative [facility] - 11/07/2020 4:19 AM EDT This exam is auto-finalizing. It's purpose is for storage only. Rolando Moise MD IMG FILM LIBRARY ORD ERABLES Performing Organization Address City/State/[facility] Co de Phone Number [place], [place] documented in this encounter Visit Diagnoses Not on filedocumented in this encounter Care Teams Med Surg Rn Relationship Specialty Start Date End Date Rolando Moise MD [address] [place] [address] PCP - General Family Medicine 09/16/16 documented as of this encounter
--- OUTSIDE RECORDS SUMMARY | 2023-12-24 06:53 | XMS_ITS | Encounter Summary ---
Author Organization [facility] Address [facility] [place] [address] Care Team Providers Care Paper Hanger Name Role Phone Rolando Moise MD Primary Care Provider [phone] Encounter Details Date Type Department Care Team (Late st Contact Info) Description 07/19/2018 Telephone [place] [address] Suzanna Krueger MD [facility] [place] [address] Social History Tobacco Use Types Packs/Day Years [...] ~1830 Referring Provider: Dr. Conner Patient Location: [facility] Reason for call: consultation, request for records [...] 1:30 PM EDT Laboratory Appointment Lab [address] [place] [address] 01/02/2024 3:00 PM EDT Office Visit [place] [address] Adam Costa MD [facility] [place] [address] documented as of this encounter Visit Diagnoses Not on filedocumented in this encounter Care Teams Paper Hanger Relationship Specialty Start Date End Date Rolando Moise MD [facility] [place] [address] PCP - General Family Medicine 09/16/16 documented as of this encounter
--- OUTSIDE RECORDS SUMMARY | 2023-12-24 06:53 | XMS_ITS | Encounter Summary ---
Author Organization [facility] Address [facility] [place] [address] Care Team Providers Care Human Factors Engineer Name Role Phone Rolando Moise MD Primary Care Provider [phone] Reason for Visit * Reason Comments Follow-up Coronary Artery Disease Encounter Details Date Type Department Care Team (Latest Contact Info) Description 09/22/2017 4:00 PM EDT Office Visit Cardiology at [address] [address] Shoshana Moyer APRN [facility] [place] [address] ASCVD (arteriosclerotic cardiovascular disease); Hypertension, unspecified type; [...] 3 months. Please call our clinic at [phone] if you have any further concerns prior to your next appointment. documented in this encounter Progress Notes * Shoshana Moyer APRN - 09/22/2017 4:00 PM EDT Images from the original note were not included. [facility] [place] [address] [address] General Cardiology Follow Up Subjective: Patient ID: [...] INTERIM: He had an ED visit in [facility] yesterday for eye discomfort and was diagnosed with bilateral conjunctivitis, and prescribed erythromycin. Otherwise no other ED visits or hospitalizations. 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 He also tolerates house/yard work fine [...] 3 months. 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 He also tolerates house/yard work fine [...] 1:30 PM EDT Laboratory Appointment Lab [address] [place] [address] 01/02/2024 3:00 PM EDT Office Visit Nephrology [place] [address] Adam Costa MD [facility] [place] [address] documented as of this encounter Visit Diagnoses Diagnosis ASCVD (arteriosclerotic cardiovascular disease) Unspecified cardiovascular disease Hypertension, unspecified type Cardiomyopathy, ischemic Other specified forms of chronic ischemic heart disease documented in this encounter Care Teams Human Factors Engineer Relationship Specialty Start Date End Date Rolando Moise MD [address] [place] [address] [place] [address] PCP - General Family Medicine 09/16/16 documented as of this encounter
--- OUTSIDE RECORDS SUMMARY | 2023-12-24 06:53 | XMS_ITS | Encounter Summary ---
Author Organization [facility] [place] [address] Care Team Providers Care Reed Or Wind Instrument Repairer Name Role Phone Rolando Moise MD Primary Care Provider [phone] Encounter Details Date Type Department Care Team (Late st Contact Info) Description 07/18/2018 11:05 AM EDT Ancillary Procedure [place] [address] Lisa Alan MD [facility] [place] [address] Social History Tobacco Use Types Packs/Day Years [...] 1:30 PM EDT Laboratory Appointment Lab [address] [place] [address] 01/02/2024 3:00 PM EDT Office Visit Neph[place] [address] Adam Costa MD [facility] NEPHROLOGY [place], [place] [address] documented as of this encounter Procedures Procedure Name Priority Date/Time Associated Diagnosis Comments FILM LIBRARY STORAGE ONLY CT ABDOMEN AND PELVIS Routine 07/18/2018 11:01 AM EDT documented in this encounter Results * Film Library- Storage Only CT Abdomen & Pelvis (07/18/2018 11:01 AM EDT) Narrative [facility] - 07/18/2018 11:01 AM EDT This exam is auto-finalizing. It's purpose is for storage only. Lisa Infante MD IMTerrence FILM LIBRARY ORDERABLES Performing Organization Address City/State/[facility] Co de Phone Number [place], [place] documented in this encounter Visit Diagnoses Not on filedocumented in this encounter Care Teams Reed Or Wind Instrument Repairer Relationship Specialty Start Date End Date Rolando Moise MD [address] [place] [address] PCP - General Family Medicine 09/16/16 documented as of this encounter
--- OUTSIDE RECORDS SUMMARY | 2023-12-24 06:53 | XMS_ITS | Encounter Summary ---
Author Organization [facility] [place] [address] Care Team Providers Care Customer Solutions Supervisor Name Role Phone Rolando Moise MD Primary Care Provider [phone] Encounter Details Date Type Department Care Team (Late st Contact Info) Description 05/26/2019 Telephone [place] [address] Elel Cunningham Social History Tobacco Use Types Packs/Day [...] 1:30 PM EDT Laboratory Appointment Lab [address] [place] [address] 01/02/2024 3:00 PM EDT Office Visit Nephrology [place] [address] Adam Costa MD [facility] [place] [address] documented as of this encounter Visit Diagnoses Not on filedocumented in this encounter Care Teams Customer Solutions Supervisor Relationship Specialty Start Date End Date Rolando Moise MD [address] [place] [address] [place] [address] PCP - General Family Medicine 09/16/16 documented as of this encounter
--- OUTSIDE RECORDS SUMMARY | 2023-12-24 06:53 | XMS_ITS | Encounter Summary ---
Author Organization [facility] Address [facility] [place] [address] Care Team Providers Care Distillery Manager Name Role Phone Rolando Moise MD Primary Care Provider [phone] Reason for Referral * Diagnostic Test (Routine) - Closed Specialty Diagnoses / Procedures Referred By Teodoro robertson Referred To Contact Cardiology Diagnoses Cardiomyopathy, ischemic Procedures Echocardiogram Transthoracic(Leb) Muriel Manning MD [facility] [place] [address] [facility] [place] [address] Referral ID Status Reason Start Date Expiration Date V isits Requested Visits Authorized [id number] Closed Specialty Service Requested 05/27/2017 05/27/2018 1 1 Encounter Details Date Type Department Care Team (Late st Contact Info) Description 05/27/2017 Orders Only Cardiology at [address] [address] Muriel Manning MD [facility] [place] [address] Cardiomyopathy, ischemic Social History Tobacco Use [...] 1:30 PM EDT Laboratory Appointment Lab [address] [place] [phone] 01/02/2024 3:00 PM EDT Office Visit Nephrology [place] [address] Adam Costa MD [facility] [place] [address] documented as of this encounter Results * ECHO COMPLETE (09/22/2017 2:33 PM EDT) EF 60 HEARTLAB SYSTEM Anatomical Region Laterality Modality Other 09/22/2017 Narrative 09/22/2017 2:40 PM EDT Procedure: ?Transthoracic Echocardiogram Patient: ?EDD LEIVA D ?(Age): 1935(81y) Med Rec#: ? [id number] ?Sex: ?M ? Site Loc: ? [facility] [place] ?Ht / Wt: ??178(cm)/88(kg) Pt. Loc: ?Echo Lab ?BSA: ?2.06 Study Date: ?? 09/22/2017 ?Pt. Type: Outpatient Tape: ? Referring: MURIEL MANNING T Reading: Bayron Oliva ([id number]) Energy Risk Management Analyst: Taisha Davidson Diagnosis: *ICD-10-PCS Ischemic cardiomyopathy (I25.5) [...] E-wave Vmax ?0.7 ?m/sec ? MV deceleration [id number] ?msec ? MV A-wave Vmax ?1.3 ?m/sec [...] ? Mid-Inferior ?Normal ? Mid-Inferoseptal ?Normal ? [place]-Septal ? Normal ? [place]-Anterior ? Normal ? [place]-Lateral ?Normal ? [place]-Inferior ? Normal ? [place]-Tip ?Normal ? This report has been electronically signed by: Bayron Oliva M.D. ? 09/22/2017 14:40:07 Images reviewed and interpretation verified [facility] Cardiac Ultrasound Laboratory Procedure Note Bayron Oliva MD - 09/22/2017 Procedure: Transthoracic Echocardiogram Patient: EDD COUCH(Age): 1935(81y) Med Rec#: [id number] Sex: M Site Loc: [facility] [place] Ht / Wt: 178(cm)/88(kg) Pt. Loc: Echo Lab BSA: 2.06 Study Date: 09/22/2017 Pt. Type: Outpatient Tape: Referring: MURIEL MANNING T Reading: Bayron Oliva ([id number]) Energy Risk Management Analyst: Taisha Davidson Diagnosis: *ICD-10-PCS Ischemic cardiomyopathy (I25.5) [...] MV E-wave Vmax 0.7 m/sec MV deceleration [id number] msec MV A-wave Vmax 1.3 m/sec MV [...] Normal Mid-Posterolateral Normal Mid-Inferior Normal Mid-Inferoseptal Normal [place]-Septal Normal [place]-Anterior Normal [place]-Lateral Normal [place]-Inferior Normal [place]-Tip Normal This report has been electronically signed by: Bayron Oliva M.D. 09/22/2017 14:40:07 Images reviewed and interpretation verified [facility] Cardiac Ultrasound Laboratory Muriel Manning MD ECHO ORDERABLES documented in this encounter Visit Diagnoses Diagnosis Cardiomyopathy, ischemic Other specified forms of chronic ischemic heart disease Cardiomyopathy, ischemic Other specified forms of chronic ischemic heart disease documented in this encounter Care Teams Distillery Manager Relationship Specialty Start Date End Date Rolando Moise MD [facility] [place] [phone] PCP - General Family Medicine 09/16/16 documented as of this encounter
--- OUTSIDE RECORDS SUMMARY | 2023-12-24 06:53 | XMS_ITS | Encounter Summary ---
Author Organization [facility] Address [facility] [place] [address] Care Team Providers Care Gauge Inspector Name Role Phone Rolando Moise MD Primary Care Provider [phone] Reason for Referral * Diagnostic Test (Routine) - Closed Specialty Diagnoses / Procedures Referred By Teodoro robertson Referred To Contact Cardiology Diagnoses Cardiomyopathy, ischemic Procedures Echocardiogram Transthoracic(Leb) Muriel Manning MD [facility] [place] [address] [facility] [place] [address] Referral ID Status Reason Start Date Expiration Date V isits Requested Visits Authorized [id number] Closed Specialty Service Requested 05/27/2017 05/27/2018 1 1 Reason for Visit * Diagnostic Test (Routine) - Closed Specialty Diagnoses / Procedures Referred By Teodoro robertson Referred To Contact Cardiology Diagnoses Cardiomyopathy, ischemic Procedures Echocardiogram Transthoracic(Leb) Muriel Manning MD [facility] [place] [address] [facility] [place] [address] Referral ID Status Reason Start Date Expiration Date V isits Requested Visits Authorized [id number] Closed Specialty Service Requested 05/27/2017 05/27/2018 1 1 Encounter Details Date Type Department Care Team (Latest Contact Info) Description 09/22/2017 12:50 PM EDT - 09/22/2017 11:59 PM EDT Hospital Encounter [place] [address] Muriel Manning MD [place] [address] Cardiomyopathy, ischemic Discharge Disposition: Home Social History [...] 1:30 PM EDT Laboratory Appointment Lab [address] [place] [address] 01/02/2024 3:00 PM EDT Office Visit Ne[place] [address] Adam Costa MD [facility] [place] [address] documented as of this encounter Procedures Procedure Name Priority Date/Time Associated Diagnosis Comments ECHO COMPLETE Routine 09/22/2017 2:33 PM EDT Cardiomyopathy, ischemic documented in this encounter Results * ECHO COMPLETE (09/22/2017 2:33 PM EDT) EF 60 HEARTLAB SYSTEM Anatomical Region Laterality Modality Other 09/22/2017 Narrative 09/22/2017 2:40 PM EDT Procedure: ?Transthoracic Echocardiogram Patient: ?EDD Hatch ?(Age): 1935(81y) Med Rec#: ? [id number] ?Sex: ?M ? Site Loc: ? [facility] [place] ?Ht / Wt: ??178(cm)/88(kg) Pt. Loc: ?Echo Lab ?BSA: ?2.06 Study Date: ?? 09/22/2017 ?Pt. Type: Outpatient Tape: ? Referring: MURIEL MANNING T Reading: Bayron Oliva ([id number]) Financial Services Counselor: Taisha Davidson Diagnosis: *ICD-10-PCS Ischemic cardiomyopathy (I25.5) [...] E-wave Vmax ?0.7 ?m/sec ? MV deceleration [id number] ?msec ? MV A-wave Vmax ?1.3 ?m/sec [...] ? Mid-Inferior ?Normal ? Mid-Inferoseptal ?Normal ? [place]-Septal ? Normal ? [place]-Anterior ? Normal ? [place]-Lateral ?Normal ? [place]-Inferior ? Normal ? [place]-Tip ?Normal ? This report has been electronically signed by: Bayron Oliva M.D. ? 09/22/2017 14:40:07 Images reviewed and interpretation verified [facility] Cardiac Ultrasound Laboratory Procedure Note Bayron Oliva MD - 09/22/2017 Procedure: Transthoracic Echocardiogram Patient: EDD COUCH(Age): 1935(81y) Med Rec#: [id number] Sex: M Site Loc: [facility] [place] Ht / Wt: 178(cm)/88(kg) Pt. Loc: Echo Lab BSA: 2.06 Study Date: 09/22/2017 Pt. Type: Outpatient Tape: Referring: MURIEL MANNING T Reading: Bayron Oliva ([id number]) Financial Services Counselor: Taisha Davidson Diagnosis: *ICD-10-PCS Ischemic cardiomyopathy (I25.5) [...] MV E-wave Vmax 0.7 m/sec MV deceleration [id number] msec MV A-wave Vmax 1.3 m/sec MV [...] Normal Mid-Posterolateral Normal Mid-Inferior Normal Mid-Inferoseptal Normal [place]-Septal Normal [place]-Anterior Normal [place]-Lateral Normal [place]-Inferior Normal [place]-Tip Normal This report has been electronically signed by: Bayron Oliva M.D. 09/22/2017 14:40:07 Images reviewed and interpretation verified [facility] Cardiac Ultrasound Laboratory Muriel Manning MD ECHO ORDERABLES documented in this encounter Visit Diagnoses Diagnosis Cardiomyopathy, ischemic Other specified forms of chronic ischemic heart disease documented in this encounter Care Teams Gauge Inspector Relationship Specialty Start Date End Date Rolando Moise MD [address] [place] [address] PCP - General Family Medicine 09/16/16 documented as of this encounter
--- OUTSIDE RECORDS SUMMARY | 2023-12-24 06:53 | XMS_ITS | Encounter Summary ---
Author Organization [facility] [place] [address] Care Team Providers Care [employer] Library Media Specialist Name Role Phone Rolando Moise MD Primary Care Provider [phone] Encounter Details Date Type Department Care Team (Late st Contact Info) Description 04/21/2019 Orders Only Vascular Surgery at [place] [phone] Rachel Arenas, INTERPERSONAL COMMUNICATIONS PROFESSOR Abdominal aortic aneurysm (AAA) without rupture Social [...] 1:30 PM EDT Laboratory Appointment Lab [address] [place] [phone] 01/02/2024 3:00 PM EDT Office Visit [place] [address] Adam Costa MD [facility] [place] [address] documented as of this encounter Visit Diagnoses Diagnosis Abdominal aortic aneurysm (AAA) without rupture documented in this encounter Care Teams High [employer] Library Media Specialist Relationship Specialty Start Date End Date Rolando Moise MD [address] [place] [phone] PCP - General Family Medicine 09/16/16 documented as of this encounter
--- OUTSIDE RECORDS SUMMARY | 2023-12-24 06:53 | XMS_ITS | Encounter Summary ---
Author Organization [facility] Address [facility] [place] [address] Care Team Providers Care Sales Analyst Name Role Phone Rolando Moise MD Primary Care Provider [phone] Encounter Details Date Type Department Care Team (Late st Contact Info) Description 11/07/2020 Telephone Cardiology at [address] [address] Luis Villalobos MD [facility] [place] [address] Social History Tobacco Use Types Packs/Day Years [...] oDiag1 (02/2017), ICM (LV EF 35% after VA to 60% 09/2017), AAA s/p endovascular repair (04/2011) who presented to [facility] with chest pain. The day [...] or examined this patient. Luis Villalobos MD [employer] documented in this encounter Plan of Treatment Upcoming Encounters Date Type Department Care Team (Latest Contact Info) Description 01/02/2024 1:30 PM EDT Laboratory Appointment Lab [address] [place] [address] 01/02/2024 3:00 PM EDT Office Visit Nephrology [place] [phone] Adam Costa MD [facility] [place] [place] [address] documented as of this encounter Visit Diagnoses Not on filedocumented in this encounter Care Teams Sales Analyst Relationship Specialty Start Date End Date Rolando Moise MD [address] [place] [address] PCP - General Family Medicine 09/16/16 documented as of this encounter
--- OUTSIDE RECORDS SUMMARY | 2023-12-24 06:53 | XMS_ITS | Encounter Summary ---
Author Organization [facility] Address [facility] [place] [address] Care Team Providers Care Ingredient Handler Name Role Phone Rolando Moise MD Primary Care Provider [phone] Reason for Visit * Reason Comments Follow-up Encounter Details Date Type Department Care Team (Late st Contact Info) Description 03/10/2017 2:00 PM EST Office Visit Cardiology at [address] [address] Shoshana Moyer APRN [facility] [place] [address] Coronary artery disease, angina presence unspecified, unspecified vessel or lesion type, unspecified whether [place] or transplanted heart Social History Tobacco Use [...] original note were not included. [facility] [place] [address] General Cardiology Follow Up Subjective: Patient ID: [...] 01/02/2024 1:30 PM EDT Laboratory Appointment Lab [place] [address] 01/02/2024 3:00 PM EDT Office Visit Neph[place] [address] Adam Costa MD [facility] [place] [address] documented as of this encounter Procedures Procedure Name Priority Date/Time Associated Diagnosis Comments EKG 12-LEAD Routine 03/10/2017 2:33 PM EST Coronary artery disease, angina presence unspecified, unspecified vessel or lesion type, unspecified whether [place] or transplanted heart documented in this encounter Results * EKG 12 Lead (03/10/2017 2:33 PM EST) Ventricular rate 71 BPM MUSE SYSTEM Atrial Rate 71 BPM MUSE SYSTEM P-R Interval 226 ms MUSE SYSTEM QRS Duration 92 ms MUSE SYSTEM Q-T Interval 414 ms MUSE SYSTEM QTC Calculated (Bezet) 449 ms MUSE SYSTEM Calculated P [place] 19 degrees MUSE SYSTEM Calculated R [place] 134 degrees MUSE SYSTEM Calculated T [place] 135 degrees MUSE SYSTEM INTERPRETATION Sinus rhythm [...] unspecified vessel or lesion type, unspecified whether [place] or transplanted heart documented in this encounter Care Teams Ingredient Handler Relationship Specialty Start Date End Date Rolando Moise MD [address] [place] [address] PCP - General Family Medicine 09/16/16 documented as of this encounter
--- OUTSIDE RECORDS SUMMARY | 2023-12-24 06:53 | XMS_ITS | Encounter Summary ---
Author Organization [facility] Address [facility] [place] [address] Care Team Providers Care Project Manager Process Development Name Role Phone Rolando Moise MD Primary Care Provider [phone] Reason for Visit * Auth/Cert Specialty Diagnoses / Procedures Referred By Teodoro t Referred To Contact Diagnoses Chest pain nstemi Referral ID Status Reason Start Date Expiration Date Visits Re quested Visits Authorized [id number] 1 1 Encounter Details Date Type Department Care Team (Latest Contact Info) Description 11/07/2020 6:46 AM EDT - 11/09/2020 3:30 PM EDT Hospital Encounter Card[place] [id number] Maximino Mcallister MD [facility] [place] [address] Chest pain, unspecified type; Abdominal aortic aneurysm [...] Cesar Thompson Patient Age: 84 y.o. Language: Czech Race: White Ethnicity: Not nor Admit date: [...] please contact your inpatient physician through the [facility] Patient Case Manager . Issues afterhours and on weekends will [...] who have questions please contact the health care administrative tech that requested your imaging first. Electronically signed by: Tyrone Jones MD, [facility] ([phone]), at 11/07/2020 8:[address] Angiogram Chest Abdomen Pelvis w Contrast (Exam End: 11/07/2020 10:10 AM) Impression 1. 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 2. 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 The endograft is widely patent Thank you for letting us participate in the care of this patient. If you are a health care provider and have any questions regarding this report, please contact the number below. For patients who have questions please contact the health care administrative tech that requested your imaging first. Electronically signed by: Isac Smith MD, [facility] ([phone]), at 11/07/2020 11:03 AM NM Lung Perfusion Planar (Exam End: 11/07/2020 4:14 [...] who have questions please contact the health care administrative tech that requested your imaging first. Electronically signed by: Migue Francisco MD, [facility] ([phone]), at 11/07/2020 4:42 PM Pending Studies and [...] gauge x 5/16 Syrg 1 Box by [facility].(Non-Drug; Combo Route) route as [...] be able to get care[place]medications through [place] if you apply [place] it. - [...] appointments: During 8am-5pm Friday through Friday call [phone] to speak with a nurse in the cardiology clinic All other times call [phone] and ask to speak to the cleaning crew member psychological operations officer. What activities can you do, and what [...] the hospital? Maximino Mcallister MD - Attending Wireless Field Technician When do I see my doctors next? No future appointments. You will need to follow up with your PCP (Rolando Moise MD at [phone]) within 1 week of discharge - scheduled for FridayNovember 15 @3:40PM You will need to follow up with your Wireless Field Technician - FridayNovember 28 @1pm - You will go to the 3rd floor [facility] For questions regarding issues relating to your hospitalization on the Cardiology Service, please contact your inpatient physician through the [facility] Patient Case Manager [phone] and ask for pager #[phone]. Issues after hours and on weekends will be handled by the Cardiology staff on-call. General Instructions None Provider Contact Information: MD [address] / [place] [id number] Discharge References/Attachments Diabetes: Blood Sugar Emergencies (Czech) Diabetes: Home Blood Sugar Test (Czech) Diabetes: Single-Dose Insulin Shot (Czech) Beta-Blockers (Czech) Rhythm-Control Medicines: General Info (Czech) documented in this encounter Discharge Instructions * [...] be able to get care/medications through the [place] if you apply for it. - [...] appointments: During 8am-5pm Friday through Friday call [phone] to speak with a nurse in the cardiology clinic All other times call [phone] and ask to speak to the cleaning crew member psychological operations officer. What activities can you do, and what [...] the hospital? Maximino Mcallister MD - Attending Wireless Field Technician When do I see my doctors next? No future appointments. You will need to follow up with your PCP (Rolando Moise MD at [phone]) within 1 week of discharge - scheduled for FridayNovember 15 @3:40PM You will need to follow up with your Wireless Field Technician - FridayNovember 28 @1pm - You will go to the 3rd floor [facility] For questions regarding issues relating to your hospitalization on the Cardiology Service, please contact your inpatient physician through the [facility] Patient Case Manager [phone] and ask for pager #[phone]. Issues after hours and on weekends will be handled by the Cardiology staff on-call. * Attachments The following attachments cannot be sent through Care Everywhere. 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 The endograft [...] medication assistance. His partner, Montse, came to [facility] this morning to meet with the team and understand the plan. We upped his insulin dosage yesterday with better grants specialist coverage and his glucose control has been [...] Sang P[place], GSOMIII Cardiology S2 (Pager [phone]) Associated attestation - Maximino Mcallister MD - [...] PCP: Rolando Moise MD PCP phone number: [phone] Date of Admission: 11/07/2020 ( Hospital Day 2 days ) Attending:Maximino Mcallister MD ID: Cesar Thompson is a 84 y.o. male w/ PMH of CAD??c/b NSTEMI s/p MINNIE to mLAD and oDiag1 (02/2017), Ischemic myopathy (LV EF 35% after ME to 60% 09/2017),??AAA s/p??endovascular??repair??(04/2011) and DMII, on [...] to set up home insulin. This AM: [place] well, no recurrence of chest pain -- [...] Telemetry: Normal Sinus rhythm 50-70's (A fib [phone]) Intake/Output Summary (Last 24 hours) at 11/09/2020 [...] Gas) No results found for: PHART, PO2ART, MEF7EUS, RMJ1HUI Microbiology: Microbiology Results (Last 30 days) No [...] who have questions please contact the health care administrative tech that requested your imaging first. Electronically signed by: Tyrone Jones MD, [facility] ([phone]), at 11/07/2020 8:[address] Angiogram Chest Abdomen Pelvis w Contrast (Exam End: 11/07/2020 10:10 AM) Impression 1. 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 2. 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 The endograft is widely patent Thank you for letting us participate in the care of this patient. If you are a health care provider and have any questions regarding this report, please contact the number below. For patients who have questions please contact the health care administrative tech that requested your imaging first. Electronically signed by: Isac Smith MD, [facility] ([phone]), at 11/07/2020 11:03 AM NM Lung Perfusion Planar (Exam End: 11/07/2020 4:14 [...] who have questions please contact the health care administrative tech that requested your imaging first. Electronically signed by: Migue Francisco MD, [facility] ([phone]), at 11/07/2020 4:42 PM Medications Scheduled Meds: [...] oDiag1 (02/2017), ICM (LV EF 35% after ME to 60% 09/2017),??AAA s/p??endovascular??repair??(04/2011) on HD# 2 [...] 02/2017), ischemic cardiomyopathy (LV EF 35% after ME to 60% 09/2017), AAA s/p endovascular repair [...] (11/07/20 1730) ??? AMIOdarone 0.5 mg/min (11/08/20 6082) Scheduled Meds: ??? 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 The endograft [...] 02/2017), ischemic cardiomyopathy (LV EF 35% after ME to 60% 09/2017), AAA s/p endovascular repair [...] ?? Sang Cota, GSOMIII Cardiology S2 (Pager [phone]) * Adam Fuchs MD - 11/08/2020 5:27 AM EDT Images from the original note were not included. Inpatient Cardiology Progress Note Patient info: Name: Cesar Thompson : 1935 PCP: Rolando Moise MD PCP phone number: [phone] Date of Admission: 11/07/2020 ( Hospital Day 1 day ) Attending:Maximino Mcallister MD ID: Cesar Thompson is a 84 y.o. male w/ PMH of CAD??c/b NSTEMI s/p MINNIE to mLAD and oDiag1 (02/2017), Ischemic myopathy (LV EF 35% after ME to 60% 09/2017),??AAA s/p??endovascular??repair??(04/2011 on Hospital Day1 for acute tearing chest pain to back. 24 Hour Events/Subjective: Yesterday: CT aorta ruled out dissection V/Q scan no perfusion defects Started on heparin drip + DAPT Converted to sinus from a fib on diltiazem drip Started on amiodarone to keep in sinus -- Overnight: -- This AM:[place] well, no recurrence of chest pain -- [...] Gas) No results found for: PHART, PO2ART, SUY0QSY, [id number] Microbiology: Microbiology Results (Last 30 days) No [...] who have questions please contact the health care administrative tech that requested your imaging first. Electronically signed by: Tyrone Jones MD, [facility] ([phone]), at 11/07/2020 8:[address] Angiogram Chest Abdomen Pelvis w Contrast (Exam End: 11/07/2020 10:10 AM) Impression 1. 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 2. 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 The endograft is widely patent Thank you for letting us participate in the care of this patient. If you are a health care provider and have any questions regarding this report, please contact the number below. For patients who have questions please contact the health care administrative tech that requested your imaging first. Electronically signed by: Isac Smith MD, [facility] ([phone]), at 11/07/2020 11:03 AM NM Lung Perfusion Planar (Exam End: 11/07/2020 4:14 [...] who have questions please contact the health care administrative tech that requested your imaging first. Electronically signed by: Migue Francisco MD, [facility] ([phone]), at 11/07/2020 4:42 PM Medications Scheduled Meds: [...] oDiag1 (02/2017), ICM (LV EF 35% after ME to 60% 09/2017),??AAA s/p??endovascular??repair??(04/2011) on HD# 2 [...] PCP: Rolando Moise MD PCP phone number: [phone] Date of Admission: 11/07/2020 ( Hospital Day 0 days ) Attending:Maximino Mcallister MD ID: Cesar Thompson is a 84 y.o. male w/ PMH of CAD c/b NSTEMI s/p MINNIE to mLAD and oDiag1 (02/2017),ICM (LV EF 35% after ME to 60% 09/2017), AAA s/p endovascular repair [...] [facility], [facility] ??? PRO AAA REPAIR, 1ST VESSEL, EXTENSION PROSTH 04/12/2011 @EVG-PLACEMENT, CUFF OR EXT. AORTIC OR ILIAC ANEURYSM REPAIR, GORE performed by ACACIA BRYANT at [facility] OR ??? PRO AAA REPAIR, MODULR BIFUR PROSTH, 2-DOCK 04/12/2011 @EVG, AAA, W\ MODULAR BIFURCATED PROS. W\ 2 DOCKING LIMBS performed by ACACIA BRYANT at [facility] OR ??? PRO AAA REPR, EXPOSE FEMORAL ART, GROIN INCIS 04/12/2011 @EXPOSURE, OPEN FEM. ARTERY FOR ENDOVASCULAR PROSTHESIS, GROIN-FABIANA performed by ACACIA BRYANT at [facility] OR ? ? PRO ENDOVASC REPAIR INFRARENAL AAA/DISSECTION S&I 04/12/2011 @EVG, INFRARENAL AAA OR DISSECTION, S&I performed by ACACIA BRYANT at [facility] OR Family History No family [...] Gas) No results found for: PHART, PO2ART, MOS1BTM, EBM0APV Microbiology: Microbiology Results (Last 30 days) No [...] who have questions please contact the health care administrative tech that requested your imaging first. Electronically signed by: Tyrone Jones MD, [facility] ([phone]), at 11/07/2020 8:[address] Angiogram Chest Abdomen Pelvis w Contrast (Exam End: 11/07/2020 10:10 AM) Impression 1. 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 2. 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 The endograft is widely patent Thank you for letting us participate in the care of this patient. If you are a health care provider and have any questions regarding this report, please contact the number below. For patients who have questions please contact the health care administrative tech that requested your imaging first. Electronically signed by: Isac Smith MD, [facility] ([phone]), at 11/07/2020 11:03 AM Medications Scheduled Meds: ??? sodium chloride 0.9 [...] and oDiag1 (02/2017), ICM(LV EF 35% after ME to 60% 09/2017), AAA s/p endovascular repair [...] Insurance: AARP SUPPLEMENT Prescription Coverage: Yes - [employer] Part D Preferred Pharmacy: [id number] - [place], [place] - [address] [place] [address] AT [address] [facility] [address] [place] [id number] This plan was formulated with input from patient, and team. All are in agreement with plan. Penny Bee RN, MSN Produce Laborer - Cardiology Office of Care Management Pager: [phone] * Care Management - Penny Bee RN [...] Insurance: AARP SUPPLEMENT Prescription Coverage: Yes - [facility] Hatch Preferred Pharmacy: [id number] [place], [place] - [address] [place] [address] AT [address] [facility] [address] [id number] Plan for discharge is: Home w/o Services [...] at 11:00 PM Penny Bee RN, MSN Produce Laborer - Cardiology Office of Care Management Pager: [phone] * Initial Assessments - Penelope Castle RN [...] DPOA, however, none are on file at [facility]) If AD's have not been completed pts adult children would be DPOA. He has s/o , Montse who is emergency contact, would be surrogate decision maker per [place] surrogate decision making law. (Only good for 90 days) Any patient receiving care at [facility] must abide by [place] law. The hierarchy for surrogate decision making [...] (i) The agent with financial power of traffic law attorney or a conservator appointed in accordance [...] Home Address confirmed as: [address] [facility] [address] Social & Family Supports: All names listed below confirmed with patient as current and correct Extended Emergency Contact Information Primary Emergency Contact: Montse De Anda Address: [address] [place], [place] [id number] [place] [address] Relation: Friend Current Care Provided by: self [...] AARP SUPPLEMENT Prescription Coverage: Yes Preferred Pharmacy: [id number] [place], [place] - [address] [place] [address] AT [address] [facility] [address] [facility] [id number] [place] Status: Patient is a : Yes Are you enrolled in the [facility] for your healthcare?: No Primary Care Provider: Rolando Moise MD [phone] Patient/Caregiver Goals of Treatment: dc to home [...] of care planning. Penelope Castle RN Ext [phone] Pager [phone] * Plan of Care - Marilyn Condon [...] 1:30 PM EDT Laboratory Appointment Lab [address] [place] [address] 01/02/2024 3:00 PM EDT Office Visit [place] [address] Adam Costa MD [facility] [address] documented as of this encounter Procedures Procedure [...] Glucose, POC 198 65 - 199 mg/dL [facility] Comment: Supplemental ranges: <140 mg/dL before meals <180 mg/dL all other times of the day Blood 11/09/2020 11:2 7 AM EDT 11/09/2020 11:27 AM EDT Maximino Mcallister MD POINT OF CARE TEST ORDERABLES [facility] [place] [address] * POCT Glucose (11/09/2020 7:44 AM EDT) Glucose, POC 183 65 - 199 mg/dL [facility] Comment: Supplemental ranges: <140 mg/dL before meals <180 mg/dL all other times of the day Blood 11/09/2020 7:44 AM EDT 11/09/2020 7:44 AM EDT Maximino Mcallister MD POINT OF CARE TEST ORDERABLES [facility] [place] [address] * (ABNORMAL) BMP w/fasting Glucose (11/09/2020 6:57 AM EDT) Glucose Fasting 196(H) 65 - 99 mg/dL [facility] Comment: ?Fasting* Glucose Interpretive [...] of Diabetes Mellitus, Position Statement from the [place] [employer]. ??Diabetes Care, Volume 33, Supplement 1, May 2009 Blood Urea Nitrogen 26(H) 10 - 20 mg/dL [facility] Creatinine 1.64(H) 0.80 - 1.50 mg/dL [facility] Sodium 136 135 - 145 mmol/L [facility] Potassium 4.2 3.5 - 5.0 mmol/L [facility] Comment: Please note: ??Patients with WBC >100,000 may have falsely elevated Potassium levels. ??For accurate Potassium quantification in these patients send serum separator tube (gold top) for subsequent determinations. ??Contact the Clinical Chemistry Laboratory if there are any questions. Chloride 102 98 - 107 mmol/L [facility] Carbon Dioxide 23 22 - 31 mmol/L [facility] Anion Gap 11 5 - 15 mmol/L [facility] Calcium 8.8 8.5 - 10.5 mg/dL [facility] Est Glomerular Filtration Rate 38(L) >=60 mL/min/1. 73 m?? [facility] Comment: This patient? s [...] MD CHEMISTRY ORDERABL ES Performing Organization Address City/[facility]/ZIP Co de Phone Number [facility] [place] [address] * POCT Glucose (11/09/2020 3:09 AM EDT) Glucose, POC 174 65 - 199 mg/dL [facility] Comment: Supplemental ranges: <140 mg/dL before meals <180 mg/dL all other times of the day Blood 11/09/2020 3:09 AM EDT 11/09/2020 3:09 AM EDT Maximino Mcallister MD POINT OF CARE TEST ORDERABLES [facility] [place] [address] * POCT Glucose (11/09/2020 12:44 AM EDT) Glucose, POC 152 65 - 199 mg/dL [facility] Comment: Supplemental ranges: <140 mg/dL before meals <180 mg/dL all other times of the day Blood 11/09/2020 12:4 4 AM EDT 11/09/2020 12:44 AM EDT Maximino Mcallister MD POINT OF CARE TEST ORDERABLES Performing Organization Address [facility] Co de Phone Number [facility] [place] [address] * (ABNORMAL) POCT Glucose (11/08/2020 8:27 PM EDT) Glucose, POC 225(H) 65 - 199 mg/dL [facility] Comment: Supplemental ranges: <140 mg/dL before meals <180 mg/dL all other times of the day Blood 11/08/2020 8:27 PM EDT 11/08/2020 8:27 PM EDT Maximino Mcallister MD POINT OF CARE TEST ORDERABLES Performing Organization Address [facility] Co de Phone Number [facility] [place] [address] * Electrolytes panel (11/08/2020 5:07 PM EDT) Pathologist [facility] Sodium 137 135 - 145 mmol/L [facility] Potassium 4.4 3.5 - 5.0 mmol/L [facility] Comment: Please note: ??Patients with WBC >100,000 may have falsely elevated Potassium levels. ??For accurate Potassium quantification in these patients send serum separator tube (gold top) for subsequent determinations. ??Contact the Clinical Chemistry Laboratory if there are any questions. Chloride 100 98 - 107 mmol/L [facility] Carbon Dioxide 25 22 - 31 mmol/L [facility] Anion Gap 12 5 - 15 mmol/L [facility] Blood 11/08/2020 5:07 PM EDT 11/08/2020 5:19 PM EDT Narrative Resulting Agency Comment Spec In Lab Maximino Mcallister MD CHEMISTRY ORDERABL ES Performing Organization Address [facility] Co de Phone Number [facility] [place] [address] * POCT Glucose (11/08/2020 5:06 PM EDT) Glucose, POC 161 65 - 199 mg/dL [facility] Comment: Supplemental ranges: <140 mg/dL before meals <180 mg/dL all other times of the day Blood 11/08/2020 5:06 PM EDT 11/08/2020 5:06 PM EDT Maximino Mcallister MD POINT OF CARE TEST ORDERABLES Performing Organization Address [facility] Co de Phone Number [facility] [place] [place] [address] * (ABNORMAL) POCT Glucose (11/08/2020 2:50 PM EDT) Glucose, POC 265(H) 65 - 199 mg/dL [facility] Comment: Supplemental ranges: <140 mg/dL before meals <180 mg/dL all other times of the day Blood 11/08/2020 2:50 PM EDT 11/08/2020 2:50 PM EDT Maximino Mcallister MD POINT OF CARE TEST ORDERABLES Performing Organization Address [facility] Co de Phone Number [facility] [place] [address] * (ABNORMAL) POCT Glucose (11/08/2020 12:03 PM EDT) Glucose, POC 305(H) 65 - 199 mg/dL [facility] Comment: Supplemental ranges: <140 mg/dL before meals <180 mg/dL all other times of the day Blood 11/08/2020 12:0 3 PM EDT 11/08/2020 12:03 PM EDT Maximino Mcallister MD POINT OF CARE TEST ORDERABLES Performing Organization Address [facility] Co de Phone Number [facility] [place] [place] [address] * (ABNORMAL) POCT Glucose (11/08/2020 10:16 AM EDT) Glucose, POC 302(H) 65 - 199 mg/dL [facility] Comment: Supplemental ranges: <140 mg/dL before meals <180 mg/dL all other times of the day Blood 11/08/2020 10:1 6 AM EDT 11/08/2020 10:16 AM EDT Maximino Mcallister MD POINT OF CARE TEST ORDERABLES Performing Organization Address [facility] Co de Phone Number [facility] [place] [address] * (ABNORMAL) POCT Glucose (11/08/2020 7:40 AM EDT) Glucose, POC 255(H) 65 - 199 mg/dL [facility] Comment: Supplemental ranges: <140 mg/dL before meals <180 mg/dL all other times of the day Blood 11/08/2020 7:40 AM EDT 11/08/2020 7:40 AM EDT Maximino Mcallister MD POINT OF CARE TEST ORDERABLES Performing Organization Address [facility] Co de Phone Number [facility] [place] [address] * (ABNORMAL) POCT Glucose (11/08/2020 5:03 AM EDT) Glucose, POC 236(H) 65 - 199 mg/dL [facility] Comment: Supplemental ranges: <140 mg/dL before meals <180 mg/dL all other times of the day Blood 11/08/2020 5:03 AM EDT 11/08/2020 5:03 AM EDT Maximino Mcallister MD POINT OF CARE TEST ORDERABLES Performing Organization Address City/[facility]/ZIP Co de Phone Number [facility] [place] [address] * (ABNORMAL) Differential, Automated (11/08/2020 12:23 AM EDT) Neutrophil % 70.8 % [facility] Neutrophil Absolute 10.06(H) 1.70 - 6.10 x10(3)/ L [facility] Lymph % 17.5 % [facility] Lymphocytes Abs 2.5 0.9 - 3.2 x10(3)/ L [facility] Monocyte % 9.1 % [facility] Monocyte Abs 1.3(H) 0.3 - 0.9 x10(3)/ L [facility] Eos % 1.7 % [facility] Eosinophils Abs 0.2 0.0 - 0.4 x10(3)/[facility] Basophil % 0.5 % [facility] Baso Absolute 0.1 0.0 - 0.1 x10(3)/ L [facility] Immature Gran % 0.40 % [facility] Comment: Immature granulocytes(IG's)percentage and absolute count will include metamyelocytes, myelocytes, and promyelocytes. Blood smears from CBCs yielding IG's will be scanned manually for concordance. If this scan disagrees with the automated IG or if promyelocytes are noted, a manual differential will be performed. Immature Gran Absolute 0.05(H) 0.00 - 0.04 x10(3)/ L [facility] Blood 11/08/2020 12:2 3 AM EDT 11/08/2020 12:27 AM EDT Narrative Resulting Agency Comment Spec In Lab Adam Fuchs MD HEMATOLOGY ORDERABLE S Performing Organization Address City/[facility]/ZIP Co de Phone Number [facility] [place] [address] * (ABNORMAL) Hemogram (11/08/2020 12:23 AM EDT) White Blood Cell 14.2(H) 4.0 - 9.5 x10(3)/[facility] Red Blood Cell 4.59 4.58 - 5.54 x10(6)/[facility] Hemoglobin 14.2 13.7 - 16.5 gm/dL [facility] Hematocrit 42.2 40.5 - 48.5 % [facility] Mean Cell Volume 91.9 82.9 - 93.1 fL [facility] Mean Cell Hemoglobin 30.9 27.5 - 32.1 pg [facility] Mean Cell Hemoglobin Concentration 33.6 32.0 - 35.7 gm/dL [facility] Platelet 175 145 - 357 x10(3)/[facility] RDW Standard Deviation 39.8 36.0 - 45.0 [facility] RDW coefficient of variation 11.9 11.4 - 13.8 % [facility] Mean Platelet Volume 11.1 7.6 - 12.9 [facility] NRBC% auto 0.0 % [facility] NRBC Absolute 0.000 0.000 - 0.000 x10(3)/[facility] Blood 11/08/2020 12:2 3 AM EDT 11/08/2020 12:27 AM EDT Narrative Resulting Agency Comment Spec In Lab Adam Fuchs MD HEMATOLOGY ORDERABLE S [facility] [place] [address] * (ABNORMAL) BMP w/fasting Glucose (11/08/2020 12:23 AM EDT) Glucose Fasting 254(H) 65 - 99 mg/dL [facility] Comment: ?Fasting* Glucose Interpretive [...] of Diabetes Mellitus, Position Statement from the [place] [employer]. ??Diabetes Care, Volume 33, Supplement 1, May 2009 Blood Urea Nitrogen 23(H) 10 - 20 mg/dL [facility] Creatinine 1.80(H) 0.80 - 1.50 mg/dL [facility] Sodium 136 135 - 145 mmol/L [facility] Potassium 4.5 3.5 - 5.0 mmol/L [facility] Comment: Please note: ??Patients with WBC >100,000 may have falsely elevated Potassium levels. ??For accurate Potassium quantification in these patients send serum separator tube (gold top) for subsequent determinations. ??Contact the Clinical Chemistry Laboratory if there are any questions. Chloride 102 98 - 107 mmol/L [facility] Carbon Dioxide 22 22 - 31 mmol/L [facility] Anion Gap 12 5 - 15 mmol/L [facility] Calcium 8.8 8.5 - 10.5 mg/dL [facility] Est Glomerular Filtration Rate 34(L) >=60 mL/min/1. 73 m?? [facility] Comment: This patient? s [...] ORDERABL ES Performing Organization Address [facility] de Phone Number [facility] [place] [address] * Heparin (unfractionated) Level (11/08/2020 12:23 AM [...] MD HEMATOLOGY ORDERAB LES Performing Organization Address [facility] Co de Phone Number [facility] [place] [address] * (ABNORMAL) POCT Glucose (11/07/2020 11:47 PM EDT) Glucose, POC 241(H) 65 - 199 mg/dL [facility] Comment: Supplemental ranges: <140 mg/dL before meals <180 mg/dL all other times of the day Blood 11/07/2020 11:4 7 PM EDT 11/07/2020 11:47 PM EDT Maximino Mcallister MD POINT OF CARE TEST ORDERABLES Performing Organization Address [facility] de Phone Number [facility] [place] [address] * (ABNORMAL) POCT Glucose (11/07/2020 8:24 PM EDT) Glucose, POC 304(H) 65 - 199 mg/dL [facility] Comment: Supplemental ranges: <140 mg/dL before meals <180 mg/dL all other times of the day Blood 11/07/2020 8:24 PM EDT 11/07/2020 8:24 PM EDT Maximino Mcallister MD POINT OF CARE TEST ORDERABLES Performing Organization Address [facility] de Phone Number [facility] [place] [address] * Heparin (unfractionated) Level (11/07/2020 6:36 PM [...] Lab Maximino Mcallister MD HEMATOLOGY ORDERAB LES [facility] [place] [address] * (ABNORMAL) Troponin (11/07/2020 5:07 PM EDT) Troponin-T 0.02(H) 0.00 - 0.00 ng/mL [facility] Comment: The 99th percentile for Troponin T is less than 0.01 ng/mL, any detectable cTnT concentration using this assay should be considered elevated. According to the third universal definition of myocardial infarction the following criteria with a clinical presentation consistent with acute myocardial ischemia meets the diagnosis for a myocardial infarction (ME). Detection of a rise and/or fall of cTnT, with at least one value greater than the 99th percentile (> or = 0.01) and with at least one of the following ?? Symptoms of ischemia ?? New or presumed new significant UK-ewcuikh-K wave (ST-T) changes or new left bundle [...] additional sample may be indicated. Reference: Third [place] Definition of Myocardial Infarction. Journal of the [place] [employer] 2012;60:1581-98 Blood 11/07/2020 5:07 PM EDT 11/07/2020 5:16 PM EDT Narrative Resulting Agency Comment Spec In Lab Maximino Mcallister MD CHEMISTRY ORDERABL ES Performing Organization Address [facility] Co de Phone Number [facility] [place] [address] * (ABNORMAL) Electrolytes panel (11/07/2020 5:07 PM EDT) Sodium 135 135 - 145 mmol/L [facility] Potassium 4.9 3.5 - 5.0 mmol/L [facility] Comment: Please note: ??Patients with WBC >100,000 may have falsely elevated Potassium levels. ??For accurate Potassium quantification in these patients send serum separator tube (gold top) for subsequent determinations. ??Contact the Clinical Chemistry Laboratory if there are any questions. Chloride 104 98 - 107 mmol/L [facility] Carbon Dioxide 20(L) 22 - 31 mmol/L [facility] Anion Gap 11 5 - 15 mmol/L [facility] Blood 11/07/2020 5:07 PM EDT 11/07/2020 5:16 PM EDT Narrative Resulting Agency Comment Spec In Lab Maximino Mcallister MD CHEMISTRY ORDERABL ES Performing Organization Address [facility] Co de Phone Number [facility] [place] [address] * (ABNORMAL) POCT Glucose (11/07/2020 5:05 PM EDT) Glucose, POC 339(H) 65 - 199 mg/dL [facility] Comment: Supplemental ranges: <140 mg/dL before meals <180 mg/dL all other times of the day Blood 11/07/2020 5:05 PM EDT 11/07/2020 5:05 PM EDT Maximino Mcallister MD POINT OF CARE TEST ORDERABLES Performing Organization Address [facility]/ZIP [place] [address] * NM Lung Perfusion Planar (11/07/2020 4:14 [...] who have questions please contact the health care administrative tech that requested your imaging first. ? Electronically signed by: Miuge Francisco MD, [facility] ([phone]), at 11/09/2020 1:16 PM --------ORIGINAL REPORT -------- [...] who have questions please contact the health care administrative tech that requested your imaging first. ? Electronically signed by: Migue Francisco MD, [facility] ([phone]), at 11/07/2020 4:42 PM Addendum by Migue [...] who have questions please contact the health care administrative tech that requested your imaging first. ? Electronically signed by: Migue Francisco MD, [facility] ([phone]), at 11/07/2020 4:42 PM Impressions 11/07/2020 4:42 [...] who have questions please contact the health care administrative tech that requested your imaging first. ? Electronically signed by: Migue Francisco MD, [facility] ([phone]), at 11/07/2020 4:42 PM Narrative 11/07/2020 4:42 [...] patients who have questions please contactthe health care administrative tech that requested your imaging first. Electronically signed by: Migue Francisco MD, [facility]([phone]), at 11/07/2020 4:42 PM Maximino Mcallister MD [facility] ORDERABLES * ECHO COMPLETE (11/07/2020 11:24 AM EDT) Pathologist [facility] EF 50 HEARTLAB SYSTEM Anatomical Region Laterality Modality Other 11/07/2020 Narrative 11/07/2020 12:13 PM EDT Procedure: ?Transthoracic Echocardiogram Patient: ?EDD LEIVA D ?(Age): 1935(84y) Med Rec#: ? [id number] ?Sex: ?M ? Site Loc: ? [facility] ?Ht / Wt: ??178(cm)/88(kg) Pt. Loc: ?Adult Floor ? BSA: ?2.06 Study Date: ?? 11/07/2020 ?Pt. Type: Inpatient Tape: ? Referring: Maximino Mcallister ([id number]) Referring: [place] Reading: Eladio Willett ([id number]) [employer] Welding [employer] Operator: Moisés Estrella RDCS Diagnosis: *Chest pain, unspecified [...] ? Mid-Inferior ?Normal ? Mid-Inferoseptal ?Normal ? [place]-Septal ? Normal ? [place]-Anterior ? Normal ? [place]-Lateral ?Normal ? [place]-Inferior ? Normal ? [place]-Tip ?Normal ? This report has been electronically signed by: Eladio Willett M.D. ? 11/07/2020 12:13:06 Images reviewed and interpretation verified [facility] Cardiac Ultrasound Laboratory Procedure Note Eladio Willett MD - 11/07/2020 Procedure: Transthoracic Echocardiogram Patient: EDD Hatch (Age): 1935(84y) Med Rec#: [id number] Sex: M Site Loc: [facility] Ht / Wt: 178(cm)/88(kg) Pt. Loc: Adult Floor BSA: 2.06 Study Date: 11/07/2020 Pt. Type: Inpatient Tape: Referring: Maximino Mcallister ([id number]) Referring: MI Reading: Eladio Willett ([id number]) Ultr[employer] Welding Machine Operator: Moisés Estrella [facility] Diagnosis: *Chest pain, unspecified (R07.9) *Abdominal [...] Normal Mid-Posterolateral Normal Mid-Inferior Normal Mid-Inferoseptal Normal [place]-Septal Normal [place]-Anterior Normal [place]-Lateral Normal [place]-Inferior Normal [place]-Tip Normal This report has been electronically signed by: Eladio Gael Willett M.D. 11/07/2020 12:13:06 Images reviewed and interpretation verified [facility] Cardiac Ultrasound Laboratory Maximino Mcallister MD ECHO ORDERABLES * (ABNORMAL) Troponin (11/07/2020 11:18 AM EDT) Troponin-T 0.02(H) 0.00 - 0.00 ng/mL [facility] Comment: The 99th percentile for Troponin T is less than 0.01 ng/mL, any detectable cTnT concentration using this assay should be considered elevated. According to the third universal definition of myocardial infarction the following criteria with a clinical presentation consistent with acute myocardial ischemia meets the diagnosis for a myocardial infarction (ME). Detection of a rise and/or fall of cTnT, with at least one value greater than the 99th percentile (> or = 0.01) and with at least one of the following ?? Symptoms of ischemia ?? New or presumed new significant NV-yjktrqg-U wave (ST-T) changes or new left bundle [...] additional sample may be indicated. Reference: Third [place] Definition of Myocardial Infarction. Journal of the [place] [employer] 2012;60:1581-98 Blood 11/07/2020 11:1 8 AM EDT 11/07/2020 12:02 PM EDT Narrative Resulting Agency Comment Spec In Lab Maximino Mcallister MD CHEMISTRY ORDERABL ES Performing Organization Address [facility] Co de Phone Number [facility] [place] [address] * EKG 12 Lead (11/07/2020 11:14 AM EDT) Ventricular rate 108 BPM MUSE SYSTEM QRS Duration 80 ms MUSE SYSTEM Q-T Interval 354 ms MUSE SYSTEM QTC Calculated (Bezet) 474 ms MUSE SYSTEM Calculated R [place] 43 degrees MUSE SYSTEM Calculated T [place] 101 degrees MUSE SYSTEM INTERPRETATION Atrial fibrillation with rapid ventricular response Nonspecific ST and T wave abnormality Abnormal ECG When compared with ECG of 10-MAR-2017 14:33, Atrial fibrillation has replaced Sinus rhythm Vent. rate has increased BY ??37 BPM Confirmed by MD Katherine, Truong ([id number]) on 11/07/2020 12:02:06 PM MUSE SYSTEM 11/07/2020 11:1 4 AM EDT 11/07/2020 12:02 PM EDT Maximino Mcallister MD ECG ORDERABLES Performing Organization Address [facility] Co de Phone Number MUSE SYSTEM [...] increase in the greatest dimensions of the [place] aneurysm sac of indeterminate etiology. The endograft is widely patent Thank you for letting us participate in the care of this patient. ??If you are a health care provider and have any questions regarding this report, please contact the number below. ??For patients who have questions please contact the health care administrative tech that requested your imaging first. ? Electronically signed by: Isac Smith MD, [facility] ([phone]), at 11/07/2020 11:03 AM Narrative 11/07/2020 11:03 AM EDT EXAMINATION: CT [...] arteries. No endoleak. The greatest dimensions of [place] aneurysm sac have increased, measuring 7.2 x [...] intravenous administration of contrast. 75 cc of [id number]. Maximum intensity projection (MIP) were reformatted. 3-D [...] arteries. No endoleak. The greatest dimensions of [place] aneurysmsac have increased, measuring 7.2 x 8.5 [...] however, increase in the greatestdimensions of the [place] aneurysm sac of indeterminate etiology. The endograft iswidely patent Thank you for letting us participate in the care of this patient. If youare a health care provider and have any questions regarding this report,please contact the number below. For patients who have questions please contactthe health care administrative tech that requested your imaging first. Electronically signed by: Isac Smith MD, [facility]([phone]), at 11/07/2020 11:03 AM Maximino Mcallister MD IMG CT ORDERABLES * (ABNORMAL) Hemoglobin A1c (11/07/2020 8:50 AM EDT) Hemoglobin A1c 11.3(H) 4.3 - 5.6 % [facility] Comment: Reference Range: 4.3 [...] Mellitus, Diabetes Care 2013; 36: Suppl. 1, P07-63 Estimated Average Glucose See note mg/dL [facility] Comment: Estimated Average Glucose [...] into estimated average glucose values. ??Diabetes Care 2008:31(8):1835-2052. Blood Venous Draw / Unknown 11/07/2020 8:50 AM EDT 11/07/2020 11:00 AM EDT Narrative Resulting Agency Comment Spec In Lab Evan Sinclair MD CHEMISTRY ORDERABLES Performing Organization Address City/State/[facility] Co de Phone Number [facility] [place] [address] * (ABNORMAL) Differential, Automated (11/07/2020 8:50 AM EDT) Neutrophil % 76.7 % [facility] Neutrophil Absolute 10.62(H) 1.70 - 6.10 x10(3)/mc L [facility] Lymph % 13.1 % [facility] Lymphocytes Abs 1.8 0.9 - 3.2 x10(3)/mc L [facility] Monocyte % 7.0 % [facility] Monocyte Abs 1.0(H) 0.3 - 0.9 x10(3)/mc L [facility] Eos % 2.2 % [facility] Eosinophils Abs 0.3 0.0 - 0.4 x10(3)/mc L [facility] Basophil % 0.6 % [facility] Baso Absolute 0.1 0.0 - 0.1 x10(3)/mc L [facility] Immature Gran % 0.40 % [facility] Comment: Immature granulocytes(IG's)percentage and absolute count will include metamyelocytes, myelocytes, and promyelocytes. Blood smears from CBCs yielding IG's will be scanned manually for concordance. If this scan disagrees with the automated IG or if promyelocytes are noted, a manual differential will be performed. Immature Gran Absolute 0.05(H) 0.00 - 0.04 x10(3)/mc L [facility] Blood 11/07/2020 8:50 AM EDT 11/07/2020 9:19 AM EDT Narrative Resulting Agency Comment Spec In Lab Evan Sinclair MD HEMATOLOGY ORDERABLE S [facility] [place] [address] * (ABNORMAL) Hemogram (11/07/2020 8:50 AM EDT) White Blood Cell 13.8(H) 4.0 - 9.5 x10(3)/mc L [facility] Red Blood Cell 4.87 4.58 - 5.54 x10(6)/mc L [facility] Hemoglobin 15.0 13.7 - 16.5 gm/dL [facility] Hematocrit 44.9 40.5 - 48.5 % [facility] Mean Cell Volume 92.2 82.9 - 93.1 fL [facility] Mean Cell Hemoglobin 30.8 27.5 - 32.1 pg [facility] Mean Cell Hemoglobin Concentration 33.4 32.0 - 35.7 gm/dL [facility] Platelet 171 145 - 357 x10(3)/mc L [facility] RDW Standard Deviation 40.0 36.0 - 45.0 fL [facility] RDW coefficient of variation 11.8 11.4 - 13.8 % [facility] Mean Platelet Volume 11.5 7.6 - 12.9 fL [facility] NRBC% auto 0.0 % [facility] NRBC Absolute 0.000 0.000 - 0.000 x10(3)/mc L [facility] Blood 11/07/2020 8:50 AM EDT 11/07/2020 9:19 AM EDT Narrative Resulting Agency Comment Spec In Lab Evan Sinclair MD HEMATOLOGY ORDERABLE S Performing Organization Address [facility] Co de Phone Number [facility] [place] [address] * (ABNORMAL) D-Dimer, Quantitative (11/07/2020 8:50 AM EDT) Pathologist [facility] D-Dimer 4,219(H) 0 - 500 FEU ng/ml [facility] Comment: The D-Dimer assay [...] MD HEMATOLOGY ORDERAB LES Performing Organization Address [facility] de Phone Number [facility] [place] [address] * APTT (11/07/2020 8:50 AM EDT) Pathologist [facility] Partial Thromboplastin Time 26 25 - 37 sec [facility] Comment: The PTT is NOT appropriate for heparin monitoring. Use the Anti-Xa level for heparin monitoring (HEP UFH) or LMWH monitoring (HEP LMW). A PTT less than 37 seconds generally indicates adequate hemostasis. Blood 11/07/2020 8:50 AM EDT 11/07/2020 9:19 AM EDT Narrative Resulting Agency Comment Spec In Lab Maximino Mcallister MD HEMATOLOGY ORDERAB LES Performing Organization Address [facility] de Phone Number [facility] [place] [address] * Prothrombin Time (11/07/2020 8:50 AM EDT) Prothrombin Time 10.5 9.4 - 12.5 sec [facility] International Normalization Ratio 0.9 [facility] Comment: An INR <2.0 [...] ORDERAB LES Performing Organization Address [facility] de Phone Number [facility] [place] [address] * Hepatic Function Panel (11/07/2020 8:50 AM EDT) Pathologist [facility] Protein, Total 6.7 6.1 - 8.0 gm/dL [facility] Albumin 3.9 3.2 - 5.2 gm/dL [facility] Aspartate Aminotransferase 29 0 - 39 unit/L [facility] Alanine Aminotransferase 46 0 - 55 unit/L [facility] Alkaline Phosphatase 118 40 - 130 unit/L [facility] Bilirubin, Total 0.8 0.2 - 1.3 mg/dL [facility] Bilirubin, Direct 0.2 0.0 - 0.3 mg/dL [facility] Blood 11/07/2020 8:50 AM EDT 11/07/2020 9:19 AM EDT Narrative Resulting Agency Comment Spec In Lab Maximino Mcallister MD CHEMISTRY ORDERABL ES Performing Organization Address [facility]/ZIP Co de Phone Number [facility] [place] [address] * (ABNORMAL) pro-Brain Natriuretic Peptide (11/07/2020 8:50 AM EDT) NT-proBNP 488(H) <=449 pg/mL [facility] Blood 11/07/2020 8:50 AM EDT 11/07/2020 9:19 AM EDT Narrative Resulting Agency Comment Spec In Lab Maximino Mcallister MD CHEMISTRY ORDERABL ES Performing Organization Address [facility] Co de Phone Number [facility] [place] [address] * TSH (11/07/2020 8:50 AM EDT) Thyroid Stimulating Hormone 1.38 0.27 - 4.20 mcIU/mL [facility] Blood 11/07/2020 8:50 AM EDT 11/07/2020 9:19 AM EDT Narrative Resulting Agency Comment Spec In Lab Maximino Mcallister MD CHEMISTRY ORDERABL ES Performing Organization Address [facility] Co de Phone Number [facility] [place] [address] * Phosphorus (11/07/2020 8:50 AM EDT) Phosphorus 3.3 2.5 - 4.5 mg/dL [facility] Blood 11/07/2020 8:50 AM EDT 11/07/2020 9:19 AM EDT Narrative Resulting Agency Comment Spec In Lab Maximino Mcallister MD CHEMISTRY ORDERABL ES Performing Organization Address [facility] Co de Phone Number [facility] [place] [address] * Magnesium (11/07/2020 8:50 AM EDT) Magnesium 0.94 0.69 - 1.07 mmol/L [facility] Blood 11/07/2020 8:50 AM EDT 11/07/2020 9:19 AM EDT Narrative Resulting Agency Comment Spec In Lab Maximino Mcallister MD CHEMISTRY ORDERABL ES [facility] [place] [address] * (ABNORMAL) Basic Metabolic Panel (non-fasting) (11/07/2020 8:50 AM EDT) Glucose 405(H) 65 - 199 mg/dL [facility] Comment:Diabetes: >=200 mg/d L plus symptoms Blood Urea Nitrogen 26(H) 10 - 20 mg/dL [facility] Creatinine 1.91(H) 0.80 - 1.50 mg/dL [facility] Sodium 138 135 - 145 mmol/L [facility] [facility] Potassium 4.6 3.5 - 5.0 mmol/L [facility] Comment: Please note: ??Patients with WBC >100,000 may have falsely elevated Potassium levels. ??For accurate Potassium quantification in these patients send serum separator tube (gold top) for subsequent determinations. ??Contact the Clinical Chemistry Laboratory if there are any questions. Chloride 101 98 - 107 mmol/L [facility] Carbon Dioxide 24 22 - 31 mmol/L [facility] Anion Gap 13 5 - 15 mmol/L [facility] Calcium 9.4 8.5 - 10.5 mg/dL [facility] Est Glomerular Filtration Rate 32(L) >=60 mL/min/1. 73 m?? [facility] Comment: This patient? s [...] Lab Maximino Mcallister MD [place] [address] * XR Chest One View (11/07/2020 8:35 [...] who have questions please contact the health care administrative tech that requested your imaging first. ? Narrative [...] patients who have questions please contactthe health care administrative tech that requested your imaging first. Electronically signed by: Tyrone Jones MD, [facility]([phone]), at 11/07/2020 8:39 AM Maximino Mcallister MD [...] PRN, Starting on Fri11/07/20 at 0749, Until [facility] 11/09/20 at 1821, Chest pain, May repeat [...] Until Discontinued, Routine 2227 (Given - Provider: Tomsa Nelson RN) metoprolol succinate XL (Toprol-XL) tablet [...] Routine documented in this encounter Care Teams Project Manager Process Development Relationship Specialty Start Date End Date Rolando Moise MD [address] [place] [address] PCP - General Family Medicine 09/16/16 documented as of this encounter
--- OUTSIDE RECORDS SUMMARY | 2023-12-24 06:54 | XMS_ITS | Encounter Summary ---
Author Organization [facility] Address [facility] [place] [address] Care Team Providers Care Rotary Filter Operator Name Role Phone Rolando Zacarias MD Primary Care Provider [phone] Encounter Details Date Type Department Care Team (Late st Contact Info) Description 10/22/2011 11:51 AM EDT - 10/22/2011 11:59 PM EDT Hospital Encounter CT Scan at [facility] [phone] Social History Tobacco Use Types Packs/Day Years [...] had a CT Scan on @ Per [facility] Policy it is important [...] contrast out of your body. Thank You, [facility] CT Scan Dept * Ancillary Services Notes - Armani Stewart - 10/22/2011 12:02 PM EDT You had a CT Scan on @ Per [facility] Policy it is important [...] contrast out of your body. Thank You, [facility] CT Scan Dept documented in this encounter Plan of Treatment Upcoming Encounters Date Type Department Care Team (Latest Contact Info) Description 01/02/2024 1:30 PM EDT Laboratory Appointment Lab [address] [address] 01/02/2024 3:00 PM EDT Office Visit [place] [address] Adam Costa MD [facility] [place] [address] documented as of this encounter Procedures Procedure [...] mg documented in this encounter Care Teams Rotary Filter Operator Relationship Specialty Start Date End Date Rolando Zacarias MD PCP - General 04/12/11 09/15/16 documented as of this encounter
--- OUTSIDE RECORDS SUMMARY | 2023-12-24 06:54 | XMS_ITS | Encounter Summary ---
Author Organization [facility] Address [facility] [place] [address] Care Team Providers Care Pulmonary Physician Name Role Phone Rolando Zacarias MD Primary Care Provider [phone] Reason for Visit * Reason Comments Follow-up AAA surveillance Encounter Details Date Type Department Care Team (Late st Contact Info) Description 10/06/2012 1:00 PM EDT Follow-Up [place] [phone] CLINIC, Steven Barahona MD [facility] [place] [address] AAA (abdominal aortic aneurysm) (Primary Dx) Discharge [...] of aortic aneurysm, using Cook Zenith Flex [id number] via right; ipsilateral extension with TFLE 16-56; [...] 01/02/2024 1:30 PM EDT Laboratory Appointment Lab [address] [address] 01/02/2024 3:00 PM EDT Office Visit Nephrology [place] [address] Adam Costa MD [facility] [place] [address] documented as of this encounter Visit Diagnoses Diagnosis AAA (abdominal aortic aneurysm)- Primary Abdominal aneurysm without mention of rupture documented in this encounter Care Teams Pulmonary Physician Relationship Specialty Start Date End Date Rolando Zacarias MD PCP - General 04/12/11 09/15/16 documented as of this encounter
--- OUTSIDE RECORDS SUMMARY | 2023-12-24 06:54 | XMS_ITS | Encounter Summary ---
Author Organization [facility] Address [facility] [place] [address] Care Team Providers Care Mail Processing Equipment Mechanic Name Role Phone Rolando Moise MD Primary Care Provider [phone] Encounter Details Date Type Department Care Team (Late st Contact Info) Description 02/03/2017 [place] [phone] Jeanette Betancourt MD [facility] [place] [address] Social History Tobacco Use Types Packs/Day Years [...] Referring Provider: Dr. Emanuel Osei Patient Location: [facility] Past Medical History: Patient Active Problem List Diagnosis Code ??? AAA (abdominal aortic aneurysm) I71.4 ??? HTN (hypertension) I10 ??? NIDDM (non-insulin dependent diabetes mellitus) ??? S/P hernia repair Z98.890, Z87.19 Presenting Symptoms per OSH: 81 yo man with hx of HTN, HLD, NIDDM and AAA s/p stenting who presents to [facility] with chest discomfort in the upper chest [...] have personally reviewed EKGs. Jeanette Betancourt MD Heat Treat Technician PGY-4 Pager: [phone] documented in this encounter Plan of Treatment Upcoming Encounters Date Type Department Care Team (Latest Contact Info) Description 01/02/2024 1:30 PM EDT Laboratory Appointment Lab [address] [place] [address] 01/02/2024 3:00 PM EDT Office Visit Ne[place] [address] Adam Costa MD [facility] [address] documented as of this encounter Visit Diagnoses Not on filedocumented in this encounter Care Teams Mail Processing Equipment Mechanic Relationship Specialty Start Date End Date Rolando Moise MD [facility] [address] PCP - General Family Medicine 09/16/16 documented as of this encounter
--- OUTSIDE RECORDS SUMMARY | 2023-12-24 06:54 | XMS_ITS | Encounter Summary ---
Author Organization [facility] Address [facility] [place] [address] Care Team Providers Care Political Science Research Assistant Name Role Phone Rolando Zacarias MD Primary Care Provider [phone] Encounter Details Date Type Department Care Team (Late st Contact Info) Description 07/17/2016 Orders [place] [phone] Esme Copeland CMA Abdominal aortic aneurysm (AAA) [...] 1:30 PM EDT Laboratory Appointment Lab [address] [place] [address] 01/02/2024 3:00 PM EDT Office Visit [place] [address] Adam Costa MD [facility] [place] [address] documented as of this encounter Results * Endo-vascular AAA repair (09/16/2016 10:07 AM EDT) VB Text Report Department: Vascular Surgery Lab Patient: [id number] (CALI THOMPSON) CPT: 60091 ICD10: I71.4 Referring Physician: ACACIA BORGES ?? [...] rupture documented in this encounter Care Teams Political Science Research Assistant Relationship Specialty Start Date End Date Rolando Zacarias MD PCP - General 04/12/11 09/15/16 documented as of this encounter
--- OUTSIDE RECORDS SUMMARY | 2023-12-24 06:54 | XMS_ITS | Encounter Summary ---
Author Organization [facility] Address [facility] [place] [address] Care Team Providers Care Legal Records Manager Name Role Phone Rolando Zacarias MD Primary Care Provider [phone] Reason for Visit * Reason Comments Follow-up AAA surveillance Encounter Details Date Type Department Care Team (Late st Contact Info) Description 10/22/2011 1:00 PM EDT Follow-[place] [phone] CLINIC, Steven Barahona MD [facility] [place] [address] AAA (abdominal aortic aneurysm) (Primary Dx) Discharge [...] of aortic aneurysm, using Cook Zenith Flex [id number] via right; ipsilateral extension with TFLE 16-56; contralateral extension with TFLE 16-73. Pex: NAD Studies: CTA reveals graft in good position, no leaks, no interval growth of sac Assessment / Plan: Doing well. Follow-up one year with CTA documented in this encounter Plan of Treatment Upcoming Encounters Date Type Department Care Team (Latest Contact Info) Description 01/02/2024 1:30 PM EDT Laboratory Appointment Lab [address] [address] 01/02/2024 3:00 PM EDT Office Visit [place] [address] Adam Costa MD [facility] [place] [address] documented as of this encounter Results * [...] artery remains patent. 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 ??The saxman abdominal aortic aneurysm sac has decreased in [...] artery remains patent. Maximum caliber of the saxman abdominal aortic aneurysm sac has decreased from [...] due theinflow from an ileolumbar artery. The saxman abdominal aortic aneurysm sac has decreased in size. Very early or resolving proximal sigmoid diverticulitis withoutperforation or abscess. Steven Borges MD IMG CT ORDERABLES documented in this encounter Visit Diagnoses Diagnosis AAA (abdominal aortic aneurysm)- Primary Abdominal aneurysm without mention of rupture AAA (abdominal aortic aneurysm) Abdominal aneurysm without mention of rupture documented in this encounter Care Teams Legal Records Manager Relationship Specialty Start Date End Date Rolando Zacarias MD PCP - General 04/12/11 09/15/16 documented as of this encounter
--- OUTSIDE RECORDS SUMMARY | 2023-12-24 06:54 | XMS_ITS | Encounter Summary ---
Author Organization [facility] [place] [address] Care Team Providers Care Sports Marketer Name Role Phone Rolando Zacarias MD Primary Care Provider [phone] Encounter Details Date Type Department Care Team (Late st Contact Info) Description 04/15/2014 Orders [place] [address] Sydnie Adam RN AAA (abdominal [...] 1:30 PM EDT Laboratory Appointment Lab [address] [place] [address] 01/02/2024 3:00 PM EDT Office Visit [place] [address] Adam Costa MD [facility] [place] [address] documented as of this encounter Results * (ABNORMAL) Creatinine (08/11/2014 8:52 AM EDT) Creatinine 1.38 0.80 - 1.50 mg/dL [facility] Comment: Please note that the pediatric reference intervals supplied above were not validated at [facility]. Results from pediatric patients should be interpreted in conjunction to the patient's age, height and muscle mass. Est Glomerular Filtration Rate 50(L) >=60 [facility] Comment: This estimated GFR (eGFR) value [...] the following links into your internet browser. [email or web address] Blood specimen (specimen) 08/11/2014 8:52 AM EDT 08/11/2014 9:00 AM EDT Narrative Resulting Agency Comment Spec In Lab Steven Borges MD CHEMISTRY ORDERABLES [facility] documented in this encounter Visit Diagnoses Diagnosis AAA (abdominal aortic aneurysm) Abdominal aneurysm without mention of rupture documented in this encounter Care Teams Sports Marketer Relationship Specialty Start Date End Date Rolando Zacarias MD PCP - General 04/12/11 09/15/16 documented as of this encounter
--- OUTSIDE RECORDS SUMMARY | 2023-12-24 06:54 | XMS_ITS | Encounter Summary ---
Author Organization [facility] [place] [address] Care Team Providers Care Oil Field Operator Name Role Phone Rolando Moise MD Primary Care Provider [phone] Encounter Details Date Type Department Care Team (Latest Contact Info) Description 09/16/2016 9:51 AM EDT - 09/16/2016 11:59 PM EDT Hospital En[place] [address] Susana Snyder, RVT Abdominal aortic aneurysm (AAA) [...] mg by mouth 3 times daily. 02/03/2017 [place]-3 Fatty Acids-Vitamin E (FISH OIL) 1,000 mg [...] 01/02/2024 1:30 PM EDT Laboratory Appointment Lab [address] [address] 01/02/2024 3:00 PM EDT Office Visit [place] [address] Adam Costa MD [facility] [place] [address] documented as of this encounter Procedures Procedure Name Priority Date/Time Associated Diagnosis Comments ENDO-VASCULAR AAA REPAIR Routine 09/16/2016 10:07 AM EDT Abdominal aortic aneurysm (AAA) without rupture documented in this encounter Results * Endo-vascular AAA repair (09/16/2016 10:07 AM EDT) VB Text Report Department: Vascular Surgery Lab Patient: [id number] (CALI THOMPSON) CPT: 75626 ICD10: I71.4 Referring Physician: ACACIA BORGES ?? [...] Borges MD VASCULAR ORDERABLES Performing Organization Address City/State/[facility] Co de Phone Number [employer] documented in this encounter Visit Diagnoses Diagnosis Abdominal aortic aneurysm (AAA) without rupture documented in this encounter Care Teams Oil Field Operator Relationship Specialty Start Date End Date Rolando Moise MD [facility] [place] [address] PCP - General Family Medicine 09/16/16 documented as of this encounter
--- OUTSIDE RECORDS SUMMARY | 2023-12-24 06:54 | XMS_ITS | Encounter Summary ---
Author Organization [facility] Address [facility] [place] [address] Care Team Providers Care Associate Director Career Services Name Role Phone Rolando Zacarias MD Primary Care Provider [phone] Encounter Details Date Type Department Care Team (Latest Contact Info) Description 04/23/2011 2:32 PM EST - 04/23/2011 11:59 PM [facility] Hospital [place] [address] CLINIC, Steven Barahona MD [facility] [place] [address] AAA (abdominal aortic aneurysm) Discharge Disposition: Home [...] a CT Scan on @ ____AM/PM. Per [facility] Policy it is important that you stop taking your (Diabetic Medication) for 2 days following the injection of IV iodinated contrast. You can start taking your in the AM/PM. If you have any questions or concerns, contact your primary care provider. Also drink plenty of water following your CT Scan to help clear the IV Iodinated contrast out of your body. Thank You, [facility] CT Scan Dept documented in this encounter Plan of Treatment Upcoming Encounters Date Type Department Care Team (Latest Contact Info) Description 01/02/2024 1:30 PM EDT Laboratory Appointment Lab [address] [place] [address] 01/02/2024 3:00 PM EDT Office Visit Nephrology [place] [address] Adam Costa MD [facility] [place] [address] documented as of this encounter Procedures Procedure [...] iliac arteries. The greatest dimensions of the dry creek aneurysm sac are 7.9 x 5.6 cm. [...] iliac arteries. The greatest dimensions of the [place] creek aneurysm sac are 7.9 x 5.6cm. On [...] mg documented in this encounter Care Teams Associate Director Career Services Relationship Specialty Start Date End Date Rolando Zacarias MD PCP - General 04/12/11 09/15/16 documented as of this encounter
--- OUTSIDE RECORDS SUMMARY | 2023-12-24 06:54 | XMS_ITS | Encounter Summary ---
Author Organization [facility] Address [facility] [place] [address] Care Team Providers Care Machine Clothing Worker Name Role Phone Rolando Zacarias MD Primary Care Provider Reason for Visit * Reason Comments Aneurysm (Aortic) Encounter Details Date Type Department Care Team (Late st Contact Info) Description 08/11/2014 10:30 AM EDT Follow-[place] [address] Steven Borges MD [facility] [place] [address] AAA (abdominal aortic aneurysm) Discharge Disposition: Home [...] of aortic aneurysm, using Cook Zenith Flex [id number] via right; ipsilateral extension with TFLE 16-56; [...] 1:30 PM EDT Laboratory Appointment Lab [address] [place] [address] 01/02/2024 3:00 PM EDT Office Visit Nephrology [place] [address] Adam Costa MD [facility] [place] [place] [address] documented as of this encounter Procedures Procedure Name Priority Date/Time Associated Diagnosis Comments CREATININE Routine 08/11/2014 8:52 AM EDT AAA (abdominal aortic aneurysm) documented in this encounter Results * (ABNORMAL) Creatinine (08/11/2014 8:52 AM EDT) Creatinine 1.38 0.80 - 1.50 mg/dL [facility] Comment: Please note that the pediatric reference intervals supplied above were not validated at [facility]. Results from pediatric patients should be interpreted in conjunction to the patient's age, height and muscle mass. Est Glomerular Filtration Rate 50(L) >=60 [facility] Comment: This estimated GFR (eGFR) [...] the following links into your internet browser. [email or web address] Blood specimen (specimen) 08/11/2014 8:52 AM EDT 08/11/2014 9:00 AM EDT Narrative Resulting Agency Comment Spec In Lab Steven Borges MD CHEMISTRY ORDERABLES [facility] documented in this encounter Visit Diagnoses Diagnosis AAA (abdominal aortic aneurysm) Abdominal aneurysm without mention of rupture documented in this encounter Care Teams Machine Clothing Worker Relationship Specialty Start Date End Date Rolando Zacarias MD PCP - General 04/12/11 09/15/16 documented as of this encounter
--- OUTSIDE RECORDS SUMMARY | 2023-12-24 06:54 | XMS_ITS | Encounter Summary ---
Author Organization [facility] Address [facility] [place] [address] Care Team Providers Care Trim Crew Supervisor Name Role Phone Arely Moise MD Primary Care Provider [phone] Reason for Referral * Consultation (Routine) - Closed Specialty Diagnoses / Procedures Referred By Contact Referred To Contact Cardiac Rehabilitation Diagnoses Non-ST elevation myocardial infarction (NSTEMI) Bayron Oliva MD [facility] [place] [address] Cardiac Rehab, [address] [place] [address] Referral ID Status Reason Start Date Expiration Date V isits Requested Visits Authorized [id number] Closed Consult, Test & Treat 02/05/2017 08/04/2017 36 36 Reason for Visit * Auth/Cert Specialty Diagnoses / Procedures Referred By Contac t Referred To Contact Diagnoses NSTEMI (non-ST elevated myocardial infarction) NSTEMI ?CAD Procedures CARDIAC CATHETERIZATION Referral ID Status Reason Start Date Expiration Date Visits Re quested Visits Authorized [id number] 1 1 Encounter Details Date Type Department Care Team (Latest Contact Info) Description 02/03/2017 8:29 AM EDT - 02/05/2017 11:44 AM EDT Hospital Encounter [place] [id number] Inder Medley MD [facility] [place] [address] Bayron Oliva MD [facility] [address] [place] [address] Non-ST elevation myocardial infarction (NSTEMI) Discharge Disposition: [...] Cesar Thompson Patient Age: 81 y.o. Language: Eritrean Race: White Ethnicity: Not nor Admit date: 02/03/2017 Discharge date and time: 02/05/2017 Attending Physician: Bayron Oliva MD Discharge Physician: Bayron Oliva MD Follow-up Recommendations for Providers: 1. Continue clopidogrel 75 mg and aspirin 81 mg PO daily for 12 months otherwise told differently by Research Interviewer. 2. Please monitor heart rate and blood pressure. 3. Start metoprolol XL 100 mg daily 4. Discontinue verapamil 120 mg tablet PO 5. Resume metformin 500 mg tablet PO two times a day, needs to take his second metformin dose tonight. Inpatient Provider Contact Information: Lili Ryan PA-C [facility] [place] # [id number] Discharge Diagnoses (Hospital Problems) and Secondary Diagnoses [...] of hypertension, AAA, hyperlipidemia and diabetes mellitus cit-elgerxm-odtgnnowm who presented to [facility] with complaint of inability to [...] to the ED. He drove himself. ?? [facility] did an EKG which showed [...] is most likely a non-STEMI. ED called [facility] [place] which recommended to start Plavix 300 mg orally and was started to heparin per ACS protocol. ?? Hospital Course: On admission to [facility], the patient had complaints of chest pain and some shortness of breath with exertion. Telemetry was attached which showed normal sinus rhythm. Heparin drip was infusing. [facility] [place]transfer records were reviewed. Baseline labs were checked and/or drawn. NSTEMI Given the patient's risk factors and ECG changes, positive biomarkers, it was decided to proceed with coronary angiography. The patient went to the cardiac livestock laborer for a diagnostic cath which showedone vessel [...] 2:00 PM Shoshana Gaspar APRN Cardiology at [place] [phone] Future Orders Complete By Expires Referral to Cardiac Rehab [[id number] Custom] As directed Process Instructions: If no progress note charted, please enter Clinical details in comments. Scheduling Instructions: Questions: My question or request is: NSTEMI, PCI. Cardiac rehab at [facility] Discharge References/Attachments MYRA INHIBITORS AND ARBS: GENERAL INFO (AUSTRIAN) PCI (PERCUTANEOUS CORONARY INTERVENTION): POST-OP (AUSTRIAN) HYPERTENSION: GENERAL INFO (AUSTRIAN) Lili Ryan PA-C 02/05/2017 documented in this encounter Discharge Instructions * Discharge Instructions* Shoshana Gaspar APRN - 02/05/2017 10:31 AM EDT Anti-coagulation follow up: Continue on plavix and aspirin for at least 12 months until otherwise told by his Research Interviewer. Call your doctor if: Chest pain, shortness of breath, pain or swelling in legs occurs. If you have non-emergent questions between now and the time of your follow up appointments: During 8am-5pm Friday through Friday call [phone] to speak with a nurse in the cardiology clinic All other times call [phone] and ask to speak to the securities broker rehabilitation clerk. Return to work: One week Driving: No driving for 48 hours after catheterization. Follow up Appointments: PCP Arely Moise MD [phone] Your follow up appointment is scheduled for February 12, 2017 at 10:00 am Cardiology [facility] : Shoshana Gaspar NP Your follow up appointment is scheduled for March at 1:45 pm. Resume metformin 500 mg tablet PO two times a day tonight (02/05) for evening dose * Attachments The following attachments cannot be sent through Care Everywhere. * MYRA INHIBITORS AND ARBS: GENERAL INFO (AUSTRIAN) * PCI (PERCUTANEOUS CORONARY INTERVENTION): POST-OP (AUSTRIAN) * HYPERTENSION: GENERAL INFO (AUSTRIAN) documented in this encounter Medications at Time [...] Progress Note Patient Name: Cesar Thompson Service: HUMAN SERVICES ASSISTANT / PA Responsible Attending: Bayron Oliva MD [...] 81 mg daily for 12 months per business intelligence manager. - continue Atorvastin, lisinopril. - Discontinue short [...] between care. SR/ST on tele with 1'AVB (IL 0.24), frequent PACs, occasional NS atrial trigem, HR 45-107. Pt sats well on RA; denied pain/discomfort and SOB throughout the shift. R radial cath site BOOTH MANAGER, slightly ecchymotic, but soft. PLAN MOVING FORWARD: [...] CPG GOAL OUTCOME EVALUATION: On-going * Bayron Oilva MD - 02/04/2017 3:51 PM EDT Inpatient Cardiology Progress Note Patient Name: Cesar Thompson Service: HUMAN SERVICES ASSISTANT / PA Responsible Attending: Bayron Oliva MD [...] 81 mg daily for 12 months per business intelligence manager. - continue Atorvastin 40 mg daily - [...] of hypertension, AAA, hiperlididemia and diabetes mellitus qoc-tbnctyq-ertlwrpxn who presented to [facility] with complaint of inability to [...] go to the ED. He drove himself. [facility] did an EKG which showed [...] is most likely a non-STEMI. ED called [facility] [place] which recommended to [...] REPAIR, GORE performed by ACACIA BRYANT at [facility] MAIN OR ??? PRO AAA REPAIR, MODULR BIFUR PROSTH, 2-DOCK 04/12/2011 @EVG, AAA, W\ MODULAR BIFURCATED PROS. W\ 2 DOCKING LIMBS performed by ACACIA BRYANT at [facility] MAIN OR ??? PRO AAA REPR, EXPOSE FEMORAL ART, GROIN INCIS 04/12/2011 @EXPOSURE, OPEN FEM. ARTERY FOR ENDOVASCULAR PROSTHESIS, GROIN-FABIANA performed by ACACIA BRYANT at [facility] MAIN OR ? ? PRO ENDOVASC REPAIR INFRARENAL AAA/DISSECTION S&I 04/12/2011 @EVG, INFRARENAL AAA OR DISSECTION, S&I performed by ACACIA BRYANT at [facility] MAIN OR Significant Family History: No family [...] Take 0.4 mg by mouth daily. ??? [place]-3 Fatty Acids-Vitamin E (FISH OIL) 1,000 mg [...] of hypertension, AAA, hiperlididemia and diabetes mellitus vgc-ubqfzxw-laluhbptr who presents to [facility] with complaint of inability to [...] -check A1c Provider: QUINN Ness Provider #: [id number] 02/03/2017 Cardiology staff addendum I have discussed, [...] ANEURYSM, S&I performed by ACACIA BRYANT at [facility] OR ??? PRO AAA REPAIR, 1ST VESSEL, EXTENSION PROSTH 04/12/2011 @EVG-PLACEMENT, CUFF OR EXT. AORTIC OR ILIAC ANEURYSM REPAIR, GORE performed by ACACIA BRYANT at [facility] OR ??? PRO AAA REPAIR, MODULR BIFUR PROSTH, 2-DOCK 04/12/2011 @EVG, AAA, W\ MODULAR BIFURCATED PROS. W\ 2 DOCKING LIMBS performed by ACACIA BRYANT at [facility] OR ??? PRO AAA REPR, EXPOSE FEMORAL ART, GROIN INCIS 04/12/2011 @EXPOSURE, OPEN FEM. ARTERY FOR ENDOVASCULAR PROSTHESIS, GROIN-FABIANA performed by ACACIA BRYANT at [facility] OR ? ? PRO ENDOVASC REPAIR INFRARENAL AAA/DISSECTION S&I 04/12/2011 @EVG, INFRARENAL AAA OR DISSECTION, S&I performed by ACACIA BRYANT at [facility] OR Hospitalizations Within the Past 30 Days: [...] per patient Preferred Pharmacy: [facility]?? Other: [facility] mail order pharmacy Primary Care Provider: Arely Moise MD [phone] Patient/Caregiver Goals of Treatment: per medical team [...] of care planning. Shital Schmidt RN Pager: [phone] * Consult Note - Riya Kellogg RN [...] in the outpatient cardiac rehabilitation program at [facility] was discussed. Patient agrees to a [...] 1:30 PM EDT Laboratory Appointment Lab [address] [place] [address] 01/02/2024 3:00 PM EDT Office Visit [place] [address] Adam Costa MD [facility] [place] [address] Scheduled Referrals Name Type Priority Associated Diagnoses Orde r Schedule Referral to Cardiac Rehab Outpatient Referral Routine Non-ST elevation myocardial infarction (NSTEMI) Ordered: 02/05/2017 documented as of this encounter Procedures Procedure Name Priority Date/Time Associated Diagnosis Comments JAVA SECURITY ENGINEER SCAN 02/06/2017 12:00 AM EDT POCT GLUCOSE [...] 02/05/20 17 3:33 AM EDT CARDIAC ENZYMES ([facility] Routine 02/04/2017 3:33 AM [...] Non-ST elevation myocardial infarction (NSTEMI) CARDIAC ENZYMES ([facility] STAT 02/03/2017 9:00 PM EDT POCT GLUCOSE Routine 02/03/2017 8:29 PM EDT POCT GLUCOSE Routine 02/03/2017 4:54 PM EDT EKG 12-LEAD Routine 02/03/2017 4:43 PM EDT Non-ST elevation myocardial infarction (NSTEMI) CARDIAC CATHETERIZATION Routine 02/04/20 17 4:26 PM EDT CARDIAC ENZYMES ([facility] Routine 02/03/2017 3:00 PM [...] 02/04/20 17 9:35 AM EDT CARDIAC ENZYMES ([facility] STAT 02/03/2017 9:35 AM [...] in this encounter Results * SCAN DOC: JAVA SECURITY ENGINEER (02/06/2017 12:00 AM EDT) Anatomical Region Laterality Modality Other Narrative 02/06/2017 12:00 AM EDT Ordered by an unspecified provider. Scanning Provider MEDIA MGR SCAN EXT O RDR/RSLT * POCT Glucose (02/05/2017 7:32 AM EDT) [facility] Glucose, POC 160 65 - 199 mg/dL [facility] Comment: Supplemental ranges: <140 mg/dL before meals <180 mg/dL all other times of the day Blood specimen (specimen) 02/05/2017 7:32 AM EDT 02/05/2017 7:32 AM EDT Bayron Oliva MD POINT OF CARE TEST O RDERABLES [facility] [place] [address] * EKG 12 Lead (02/05/2017 7:26 AM EDT) Ventricular rate 54 BPM MUSE SYSTEM Atrial Rate 54 BPM MUSE SYSTEM P-R Interval 214 ms MUSE SYSTEM QRS Duration 96 ms MUSE SYSTEM Q-T Interval 486 ms MUSE SYSTEM QTC Calculated (Bezet) 460 ms MUSE SYSTEM Calculated P [place] 14 degrees MUSE SYSTEM Calculated R [place] 112 degrees MUSE SYSTEM Calculated T [place] 143 degrees MUSE SYSTEM INTERPRETATION Sinus bradycardia [...] 3:43 AM EDT) Neutrophil % 63.2 % [facility] Neutrophil Absolute 7.21(H) 1.70 - 6.10 x10(3)/mc L [facility] Lymph % 20.7 % [facility] Lymphocytes Abs 2.4 0.9 - 3.2 x10(3)/mc L [facility] Monocyte % 11.2 % [facility] Monocyte Abs 1.3(H) 0.3 - 0.9 x10(3)/mc L [facility] Eos % 4.1 % [facility] Eosinophils Abs 0.5(H) 0.0 - 0.4 x10(3)/mc L [facility] Basophil % 0.5 % [facility] Baso Absolute 0.1 0.0 - 0.1 x10(3)/mc L [facility] Immature Gran % 0.30 % [facility] Comment: Immature granulocytes(IG's)percentage and absolute count will include metamyelocytes, myelocytes, and promyelocytes. Blood smears from CBCs yielding IG's will be scanned manually for concordance. If this scan disagrees with the automated IG or if promyelocytes are noted, a manual differential will be performed. Immature Gran Absolute 0.03 0.00 - 0.04 x10(3)/mc L [facility] Blood specimen (specimen) 02/05/2017 3:43 AM EDT 02/05/2017 3:52 AM EDT Narrative Resulting Agency Comment Spec In Lab Shoshana Moyer RADHA HEMATOLOGY ORDERABLE S [facility] [place] [address] * (ABNORMAL) Hemogram (02/05/2017 3:43 AM EDT) White Blood Cell 11.4(H) 4.0 - 9.5 x10(3)/[facility] Red Blood Cell 4.48(L) 4.58 - 5.54 x10(6)/[facility] Hemoglobin 14.0 13.7 - 16.5 gm/dL [facility] Hematocrit 41.1 40.5 - 48.5 % [facility] Mean Cell Volume 91.7 82.9 - 93.1 fL [facility] Mean Cell Hemoglobin 31.3 27.5 - 32.1 pg [facility] Mean Cell Hemoglobin Concentration 34.1 32.0 - 35.7 gm/dL [facility] Platelet 168 145 - 357 x10(3)/[facility] RDW Standard Deviation 39.9 36.0 - 45.0 [facility] RDW coefficient of variation 11.8 11.4 - 13.8 % [facility] Mean Platelet Volume 10.2 7.6 - 12.9 [facility] LAB[facility]ATORY NRBC% auto 0.0 % [facility] NRBC Absolute 0.000 0.000 - 0.000 x10(3)/[facility] Blood specimen (specimen) 02/05/2017 3:43 AM EDT 02/05/2017 3:52 AM EDT Narrative Resulting Agency Comment Spec In Lab Shoshana Moyer RADHA HEMATOLOGY ORDERABLE S [facility] [place] [address] * (ABNORMAL) BMP w/fasting Glucose (02/05/2017 3:43 AM EDT) Glucose Fasting 149(H) 65 - 99 mg/dL [facility] [...] of Diabetes Mellitus, Position Statement from the [place] Diabetes Association. ??Diabetes Care, Volume 33, Supplement 1, May 2009 Blood Urea Nitrogen 19 10 - 20 mg/dL [facility] Creatinine 1.46 0.80 - 1.50 mg/dL [facility] Comment: Please note that the pediatric reference intervals supplied above were not validated at [facility]. Results from pediatric patients should be interpreted in conjunction to the patient's age, height and muscle mass. Sodium 140 135 - 145 mmol/L [facility] Potassium 4.3 3.5 - 5.0 mmol/L [facility] Est Glomerular Filtration Rate 46(L) >=60 [facility] Comment: This estimated GFR [...] the following links into your internet browser. [email or web address] Blood specimen (specimen) 02/05/2017 3:43 AM EDT 02/05/2017 3:52 AM EDT Narrative Resulting Agency Comment Spec In Lab Shoshana Moyer APRN CHEMISTRY ORDERABLES Performing Organization Address [facility] Co de Phone Number [facility] [place] [address] * Magnesium (02/05/2017 3:43 AM EDT) Magnesium 0.77 0.69 - 1.07 mmol/L [facility] Blood specimen (specimen) 02/05/2017 3:43 AM EDT 02/05/2017 3:52 AM EDT Narrative Resulting Agency Comment Spec In Lab Shoshana Doc Moyer FINE DINING SERVER CHEMISTRY ORDERABLES Performing Organization Address [facility] Co de Phone Number [facility] [place] [address] * POCT Glucose (02/04/2017 8:10 PM EDT) Glucose, POC 189 65 - 199 mg/dL [facility] Comment: Supplemental ranges: <140 mg/dL before meals <180 mg/dL all other times of the day Blood specimen (specimen) 02/04/2017 8:10 PM EDT 02/04/2017 8:10 PM EDT Bayron Oliva MD POINT OF CARE TEST O RDERABLES Performing Organization Address City/[facility]/ZIP Co de Phone Number [facility] [place] [address] * POCT Glucose (02/04/2017 4:56 PM EDT) Glucose, POC 114 65 - 199 mg/dL [facility] Comment: Supplemental ranges: <140 mg/dL before meals <180 mg/dL all other times of the day Blood specimen (specimen) 02/04/2017 4:56 PM EDT 02/04/2017 4:56 PM EDT Bayron Oliva MD POINT OF CARE TEST O KORTNEYERAJAZZY Performing Organization Address [facility] Co de Phone Number [facility] [place] [address] * POCT Glucose (02/04/2017 11:40 AM EDT) Glucose, POC 157 65 - 199 mg/dL [facility] Comment: Supplemental ranges: <140 mg/dL before meals <180 mg/dL all other times of the day Blood specimen (specimen) 02/04/2017 11:40 AM EDT 02/04/2017 11:40 AM EDT Bayron Oliva MD POINT OF CARE TEST O RDERAJAZZY Performing Organization Address City/[facility] Co de Phone Number [facility] [place] [address] * POCT Glucose (02/04/2017 7:53 AM EDT) Glucose, POC 178 65 - 199 mg/dL [facility] Comment: Supplemental ranges: <140 mg/dL before meals <180 mg/dL all other times of the day Blood specimen (specimen) 02/04/2017 7:53 AM EDT 02/04/2017 7:53 AM EDT Bayron Oliva MD POINT OF CARE TEST O RDERABLES [facility] [place] [address] * EKG 12 Lead (02/04/2017 7:17 AM EDT) Ventricular rate 65 BPM MUSE SYSTEM Atrial Rate 65 BPM MUSE SYSTEM P-R Interval 248 ms MUSE SYSTEM QRS Duration 92 ms MUSE SYSTEM Q-T Interval 484 ms MUSE SYSTEM QTC Calculated (Bezet) 503 ms MUSE SYSTEM Calculated P [place] 29 degrees MUSE SYSTEM Calculated R [place] 99 degrees MUSE SYSTEM Calculated T [place] 140 degrees MUSE SYSTEM INTERPRETATION Sinus rhythm [...] interpretation Confirmed by fellow MD Katherine, Truong ([id number]) on 02/04/2017 9:02:44 AM Confirmed by MD RAUL, JOAN ([id number]) on 02/04/2017 10:47:37 AM MUSE SYSTEM 02/04/2017 7:17 AM EDT 02/04/2017 10:47 AM EDT Shoshana Moyer APRN ECG ORDERABLES MUSE SYSTEM * (ABNORMAL) Cardiac Enzymes (02/04/2017 3:33 AM EDT) Troponin-T 0.95(H) 0.00 - 0.00 ng/mL [facility] Comment: The 99th percentile for Troponin T is less than 0.01 ng/mL, any detectable cTnT concentration using this assay should be considered elevated. According to the third universal definition of myocardial infarction the following criteria with a clinical presentation consistent with acute myocardial ischemia meets the diagnosis for a myocardial infarction ([place]). Detection of a rise and/or fall of cTnT, with at least one value greater than the 99th percentile (> or = 0.01) and with at least one of the following ?? Symptoms of ischemia ?? New or presumed new significant LS-usmxvjz-E wave (ST-T) changes or new left bundle [...] additional sample may be indicated. Reference: Third [place] Definition of Myocardial Infarction. Journal of the [place] College [employer]iology 2012;60:1581-98 Creatine Kinase 421(H) 0 - 200 unit/L [facility] Blood specimen (specimen) Venous Draw / Unknown 02/04/2017 3:33 AM EDT 02/04/2017 3:50 AM EDT Narrative Resulting Agency Comment Spec In Lab Shoshana Moyer APRN CHEMISTRY ORDERABLES Performing Organization Address City/State/[facility] Co de Phone Number [facility] [place] [address] * (ABNORMAL) Differential, Automated (02/04/2017 3:33 AM EDT) Neutrophil % 70.9 % [facility] Neutrophil Absolute 10.32(H) 1.70 - 6.10 x10(3)/mc L [facility] Lymph % 17.5 % [facility] Lymphocytes Abs 2.6 0.9 - 3.2 x10(3)/mc L [facility] Monocyte % 8.8 % [facility] Monocyte Abs 1.3(H) 0.3 - 0.9 x10(3)/mc L [facility] Eos % 2.0 % [facility] Eosinophils Abs 0.3 0.0 - 0.4 x10(3)/mc L [facility] Basophil % 0.4 % [facility] Baso Absolute 0.1 0.0 - 0.1 x10(3)/[facility] Immature Gran % 0.40 % [facility] Comment: Immature granulocytes(IG's)percentage and absolute count will include metamyelocytes, myelocytes, and promyelocytes. Blood smears from CBCs yielding IG's will be scanned manually for concordance. If this scan disagrees with the automated IG or if promyelocytes are noted, a manual differential will be performed. Immature Gran Absolute 0.06(H) 0.00 - 0.04 x10(3)/[facility] Blood specimen (specimen) 02/04/2017 3:33 AM EDT 02/04/2017 3:50 AM EDT Narrative Resulting Agency Comment Spec In Lab Shoshana Moyer APRN HEMATOLOGY ORDERABLE S [facility] [place] [address] * (ABNORMAL) Hemogram (02/04/2017 3:33 AM EDT) White Blood Cell 14.6(H) 4.0 - 9.5 x10(3)/[facility] Red Blood Cell 4.65 4.58 - 5.54 x10(6)/[facility] Hemoglobin 14.6 13.7 - 16.5 gm/dL [facility] Hematocrit 41.8 40.5 - 48.5 % [facility] Mean Cell Volume 89.9 82.9 - 93.1 fL [facility] Mean Cell Hemoglobin 31.4 27.5 - 32.1 pg [facility] Mean Cell Hemoglobin Concentration 34.9 32.0 - 35.7 gm/dL [facility] Platelet 192 145 - 357 x10(3)/ L [facility] RDW Standard Deviation 38.6 36.0 - 45.0 fL [facility] RDW coefficient of variation 11.8 11.4 - 13.8 % [facility] Mean Platelet Volume 10.1 7.6 - 12.9 fL [facility] NRBC% auto 0.0 % [facility] NRBC Absolute 0.000 0.000 - 0.000 x10(3)/mc L [facility] Blood specimen (specimen) 02/04/2017 3:33 AM EDT 02/04/2017 3:50 AM EDT Narrative Resulting Agency Comment Spec In Lab Shoshana J King RADHA HEMATOLOGY ORDERABLE S [facility] [place] [address] * (ABNORMAL) BMP w/fasting Glucose (02/04/2017 3:33 AM EDT) Glucose Fasting 138(H) 65 - 99 mg/dL [facility] [...] of Diabetes Mellitus, Position Statement from the [place] Diabetes [employer]. ??Diabetes Care, Volume 33, Supplement 1, May 2009 Blood Urea Nitrogen 15 10 - 20 mg/dL [facility] Creatinine 1.34 0.80 - 1.50 mg/dL [facility] Comment: Please note that the pediatric reference intervals supplied above were not validated at [facility]. Results from pediatric patients should be interpreted in conjunction to the patient's age, height and muscle mass. Sodium 139 135 - 145 mmol/L [facility] [...] [facility] Anion Gap 14 5 - 15 mmol/L [facility] Calcium 8.7 8.5 - 10.5 mg/dL [facility] Est Glomerular Filtration Rate 51(L) >=60 [facility] Comment: This estimated GFR [...] the following links into your internet browser. [email or web address] Blood specimen (specimen) 02/04/2017 3:33 AM EDT 02/04/2017 3:50 AM EDT Narrative Resulting Agency Comment Spec In Lab Shoshana Moyer APRN CHEMISTRY ORDERABLES Performing Organization Address [facility] Co de Phone Number [facility] [place] [address] * Magnesium (02/04/2017 3:33 AM EDT) Magnesium 0.77 0.69 - 1.07 mmol/L [facility] Blood specimen (specimen) 02/04/2017 3:33 AM EDT 02/04/2017 3:50 AM EDT Narrative Resulting Agency Comment Spec In Lab Shoshana Moyer APRN CHEMISTRY ORDERABLES Performing Organization Address [facility] Co de Phone Number [facility] [place] [address] * (ABNORMAL) Hepatic Function Panel (02/04/2017 3:33 AM EDT) [facility] Protein, Total 6.1 6.1 - 8.0 gm/dL [facility] Albumin 3.7 3.2 - 5.2 gm/dL [facility] Aspartate Aminotransferase 57(H) 0 - 39 unit/L [facility] Alanine Aminotransferase 34 0 - 55 unit/L [facility] Alkaline Phosphatase 71 40 - 120 unit/L [facility] Bilirubin, Total 0.7 0.2 - 1.3 mg/dL [facility] Bilirubin, Direct 0.1 0.0 - 0.3 mg/dL [facility] Blood specimen (specimen) 02/04/2017 3:33 AM EDT 02/04/2017 3:50 AM EDT Narrative Resulting Agency Comment Spec In Lab Shoshana Roach João FINE DINING SERVER CHEMISTRY ORDERABLES Performing Organization Address City/[facility]/ZIP Co de Phone Number [facility] [place] [address] * Triglyceride (02/04/2017 3:33 AM EDT) [facility] Triglyceride 171 <=199 mg/dL [facility] Blood specimen (specimen) 02/04/2017 3:33 AM EDT 02/04/2017 3:50 AM EDT Narrative Resulting Agency Comment Spec In Lab Shoshana Roach [employer] FINE DINING SERVER CHEMISTRY ORDERABLES [facility] [place] [address] * (ABNORMAL) HDL/Cholesterol Profile (02/04/2017 3:33 AM EDT) [facility] Cholesterol, Total 106 <=239 mg/dL [facility] HDL Cholesterol 37(L) >=40 mg/dL [facility] Cholesterol/HDL Ratio 2.9 ratio [facility] Chol/HDL Interpretation See Note [facility] Comment: Lipid management should be guided by a patient? s ASCVD risk, goals and preferences. ACC/AHA Guidelines recommend high intensity statin if clinical ASCVD or LDL greater than or equal to 190 mg/dL. http://Float: [place].com/GHI-PBR-Biqjgoqih Measure LDL if Total Cholesterol minus HDL Cholesterol is greater than 220 mg/dL. Adults aged 40-75 with LDL 70-189 mg/dL should have their 10 year ASCVD risk estimated with the ACC/AHA ASCVD risk discharge door operator http://tools.acc.org/AAFJN-Gbqc-Qmnbpqdro/ Statin should be discussed if risk greater [...] Moyer APRN CHEMISTRY ORDERABLES Performing Organization Address [facility] Co de Phone Number [facility] [place] [address] * LDL Cholesterol, Direct (02/04/2017 3:33 AM EDT) LDL Cholesterol, Direct 47 <=190 mg/dL [facility] Blood specimen (specimen) 02/04/2017 3:33 AM EDT 02/04/2017 3:50 AM EDT Narrative Resulting Agency Comment Spec In Lab Shoshana Moyer APRN CHEMISTRY ORDERABLES Performing Organization Address [facility] Co de Phone Number [facility] [place] [address] * (ABNORMAL) Hemoglobin A1c (02/04/2017 3:33 AM EDT) Hemoglobin A1c 6.2(H) 4.3 - 5.6 % [facility] [...] Mellitus, Diabetes Care 2013; 36: Suppl. 1, S67-11 Estimated Average Glucose See note mg/dL [facility] [...] available on the ADA website. Hu RODRIGUEZ, Fausitno J, Sridhar R, et al. ??Translating the A1C assay into estimated average glucose values. ??Diabetes Care 2008:31(8):4338-9440. Blood specimen (specimen) 02/04/2017 3:33 AM EDT 02/04/2017 3:50 AM EDT Narrative Resulting Agency Comment Spec In Lab Shoshana Moyer APRN CHEMISTRY ORDERABLES [facility] [place] [address] * EKG 12 Lead (02/03/2017 9:16 PM EDT) Ventricular rate 77 BPM MUSE SYSTEM Atrial Rate 77 BPM MUSE SYSTEM P-R Interval 222 ms MUSE SYSTEM QRS Duration 90 ms MUSE SYSTEM Q-T Interval 458 ms MUSE SYSTEM QTC Calculated (Bezet) 518 ms MUSE SYSTEM Calculated P [place] 29 degrees MUSE SYSTEM Calculated R [place] 98 degrees MUSE SYSTEM Calculated T [place] 118 degrees MUSE SYSTEM INTERPRETATION Sinus rhythm [...] Oliva MD ECG ORDERABLES Performing Organization Address [facility] Co de Phone Number MUSE SYSTEM * (ABNORMAL) Cardiac Enzymes (02/03/2017 9:00 PM EDT) [facility] Troponin-T 0.71(H) 0.00 - 0.00 ng/mL [facility] Comment: The 99th percentile for Troponin T is less than 0.01 ng/mL, any detectable cTnT concentration using this assay should be considered elevated. According to the third universal definition of myocardial infarction the following criteria with a clinical presentation consistent with acute myocardial ischemia meets the diagnosis for a myocardial infarction ([place]). Detection of a rise and/or fall of cTnT, with at least one value greater than the 99th percentile (> or = 0.01) and with at least one of the following ?? Symptoms of ischemia ?? New or presumed new significant ID-jzpvgdx-H wave (ST-T) changes or new left bundle [...] additional sample may be indicated. Reference: Third [place] Definition of Myocardial Infarction. Journal of the [employer] College [employer] 2012;60:1581-98 Creatine Kinase 329(H) 0 - 200 unit/L [facility] Blood specimen (specimen) 02/03/2017 9:00 PM EDT 02/03/2017 9:05 PM EDT Narrative Resulting Agency Comment Spec In Lab Shoshana Moyer APRN CHEMISTRY ORDERABLES Performing Organization Address [facility]/ZIP Co de Phone Number [facility] [place] [address] * POCT Glucose (02/03/2017 8:29 PM EDT) Glucose, POC 197 65 - 199 mg/dL [facility] Comment: Supplemental ranges: <140 mg/dL before meals <180 mg/dL all other times of the day Blood specimen (specimen) 02/03/2017 8:29 PM EDT 02/03/2017 8:29 PM EDT aByron Oliva MD POINT OF CARE TEST O RDERABLES [facility] [place] [address] * POCT Glucose (02/03/2017 4:54 PM EDT) Glucose, POC 144 65 - 199 mg/dL [facility] Comment: Supplemental ranges: <140 mg/dL before meals <180 mg/dL all other times of the day Blood specimen (specimen) 02/03/2017 4:54 PM EDT 02/03/2017 4:54 PM EDT Bayron Oliva MD POINT OF CARE TEST O RDERABLES Performing Organization Address [facility] Co de Phone Number [facility] [place] [address] * EKG 12 Lead (02/03/2017 4:43 PM EDT) Ventricular rate 81 BPM MUSE SYSTEM Atrial Rate 81 BPM MUSE SYSTEM P-R Interval 226 ms MUSE SYSTEM QRS Duration 96 ms MUSE SYSTEM Q-T Interval 420 ms MUSE SYSTEM QTC Calculated (Bezet) 487 ms MUSE SYSTEM Calculated P [place] 30 degrees MUSE SYSTEM Calculated R [place] -20 degrees MUSE SYSTEM Calculated T [place] -19 degrees MUSE SYSTEM INTERPRETATION Sinus rhythm [...] Oliva MD ECG ORDERABLES Performing Organization Address [facility] de Phone Number MUSE SYSTEM * CARDIAC CATHETERIZATION (02/03/2017 4:26 PM EDT) Anatomical Region Laterality Modality Other Narrative 02/03/2017 4:43 PM EDT ?[facility] ? Cardiac Catheterization/Intervention Report ? Patient Name: Cesar Thompson. ? Procedure Date: 02/03/2017 ? A #: [id number] ? Primary Physician: Lydia Harden ? Case #: [id number] ? File Name: [id number] ? Catheterization Order Number: [id number] ? [facility] ? Final Report [place], [place] ? Patient Name: ? Gilbert D. Thompson ?ID#: ?[id number] ? : ?1935 ? Procedure Date: ? February 03, 2017 ?Case #: ? [id number] ? Room: ? 6 ? Case Physician: [...] patient presented with: non-STEMI (w/i 7 days). [place] ?Cardiovascular Society angina class was IV. 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 ?Recommend continuing clopidogrel 75 mg PO daily [...] Procedure Note Lydia Harden MD - 08/08/2017 [facility] Cardiac Catheterization/Intervention Report Patient Name: Cesar Thompson Procedure Date: 02/03/2017 A #: [id number] Primary Physician: Lydia Harden Case #: [id number] File Name: [id number] Catheterization Order Number: [id number] [facility] FinalReport [place], [place] Patient Name: Cesar Thompson ID#:[id number] :1935 Procedure Date: February 03, 2017 Case [...] patient presented with: non-STEMI (w/i 7 days). [place] Cardiovascular Society angina class was IV. 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 Recommend continuing clopidogrel 75 mg PO daily [...] EDT) Troponin-T 0.48(H) 0.00 - 0.00 ng/mL [facility] Comment: The 99th percentile for Troponin T is less than 0.01 ng/mL, any detectable cTnT concentration using this assay should be considered elevated. According to the third universal definition of myocardial infarction the following criteria with a clinical presentation consistent with acute myocardial ischemia meets the diagnosis for a myocardial infarction ([place]). Detection of a rise and/or fall of cTnT, with at least one value greater than the 99th percentile (> or = 0.01) and with at least one of the following ?? Symptoms of ischemia ?? New or presumed new significant MB-iqnvcqi-K wave (ST-T) changes or new left bundle [...] additional sample may be indicated. Reference: Third [place] Definition of Myocardial Infarction. Journal of the [employer] College of Cardiology 2012;60:1581-98 Creatine Kinase 305(H) 0 - 200 unit/L [facility] Blood specimen (specimen) 02/03/2017 3:00 PM EDT 02/03/2017 3:22 PM EDT Narrative Resulting Agency Comment Spec In Lab Shoshana Moyer APRN CHEMISTRY ORDERABLES [facility] [place] [address] * TSH (02/03/2017 3:00 PM EDT) Thyroid Stimulating Hormone 1.18 0.27 - 4.20 mlU/ML [facility] Blood specimen (specimen) 02/03/2017 3:00 PM EDT 02/03/2017 3:22 PM EDT Narrative Resulting Agency Comment Spec In Lab Inder Medley MD CHEMISTRY ORDERABLES Performing Organization Address [facility]/ZIP Co de Phone Number [facility] [place] [address] * XR Chest PA & Lateral (Generic) [...] ?EDD Hatch ?(Age): 1935(81y) Med Rec#: ? [id number] ?Sex: ?M ? [place] ? [facility] [place]Ht / Wt: ??175(cm)/85(kg) Pt. Loc: ?Adult Floor ? BSA: ?2.01 Study Date: ?? 02/03/2017 ?Pt. Type: Inpatient Tape: ? Referring: CRISTAL Referring: Inder Medley Reading: Mason Beth ([id number]) Instructional Aide: Sonia Marcial Diagnosis: *ICD-10-PCS Non-ST elevation (NSTEMI) [...] ? Mid-Inferior ?Hypokinetic ? Mid-Inferoseptal ?Akinetic ? [place]-Septal ? Akinetic ? Austin-Anterior ? Akinetic ? [place]-Lateral ?Akinetic ? Austin-Inferior ? Akinetic ? [place]-Tip ?Akinetic ? This report has been electronically signed by: Mason Beth MD ? 02/03/2017 13:42:39 Images reviewed and interpretation verified [facility] Cardiac Ultrasound Laboratory Procedure Note Mason Beth MD - 02/03/2017 Procedure: Transthoracic Echocardiogram Patient: EDD Hatch (Age): 1935(81y) Med Rec#: [id number] Sex: M [place] [facility] [place] Ht / Wt: 175(cm)/85(kg) Pt. Loc: Adult Floor BSA: 2.01 Study Date: 02/03/2017 Pt. Type: Inpatient Tape: Referring: GRANTYEISON Referring: Inder Medley Reading: Mason Beth ([id number]) Instructional Aide: Sonia Marcial Diagnosis: *ICD-10-PCS Non-ST elevation (NSTEMI) [...] Hypokinetic Mid-Posterolateral Hypokinetic Mid-Inferior Hypokinetic Mid-Inferoseptal Akinetic Austin-Septal Akinetic Austin-Anterior Akinetic Austin-Lateral Akinetic Austin-Inferior Akinetic Austin-Tip Akinetic This report has been electronically signed by: Mason Beth MD 02/03/2017 13:42:39 Images reviewed and interpretation verified [facility]ound [facility] Inder Medley MD ECHO ORDERABLES * POCT Glucose (02/03/2017 11:50 AM EDT) [facility] Glucose, POC 138 65 - 199 mg/dL [facility] Comment: Supplemental ranges: <140 mg/dL before meals <180 mg/dL all other times of the day Blood specimen (specimen) 02/03/2017 11:50 AM EDT 02/03/2017 11:50 AM EDT Bayron Oliva MD POINT OF CARE TEST O RDERABLES Performing Organization Address [facility] Co de Phone Number [facility] [place] [address] * (ABNORMAL) APTT (02/03/2017 11:50 AM EDT) [facility] Partial Thromboplastin Time 54(H) 25 - 35 sec [facility] Comment: The recommended therapeutic range for full dose, unfractionated heparin at [facility] is 80 ? 114 seconds. The use of the anti-Xa (heparin) level rather than the PTT is recommended for monitoring anticoagulation intensity in critically ill patients receiving unfractionated heparin by continuous IV infusion. Blood specimen (specimen) 02/03/2017 11:50 AM EDT 02/03/2017 12:05 PM EDT Narrative Resulting Agency Comment Spec In Lab Shoshana Moyer APRN HEMATOLOGY ORDERABLE S Performing Organization Address City/[facility]/ZIP Co de Phone Number [facility] [place] [address] * POCT Glucose (02/03/2017 10:13 AM EDT) Glucose, POC 148 65 - 199 mg/dL [facility] Comment: Supplemental ranges: <140 mg/dL before meals <180 mg/dL all other times of the day Blood specimen (specimen) 02/03/2017 10:13 AM EDT 02/03/2017 10:13 AM EDT Inder Medley MD POINT OF CARE TEST O RDERABLES [facility] [place] [address] * (ABNORMAL) Differential, Automated (02/03/2017 9:35 AM EDT) Pathologist [facility] Neutrophil % 68.5 % [facility] Neutrophil Absolute 6.52(H) 1.70 - 6.10 x10(3)/mc L [facility] Lymph % 20.1 % [facility] Lymphocytes Abs 1.9 0.9 - 3.2 x10(3)/mc L [facility] Monocyte % 7.5 % [facility] Monocyte Abs 0.7 0.3 - 0.9 x10(3)/mc L [facility] Eos % 2.9 % [facility] Eosinophils Abs 0.3 0.0 - 0.4 x10(3)/mc L [facility] Basophil % 0.7 % [facility] Baso Absolute 0.1 0.0 - 0.1 x10(3)/mc L [facility] Immature Gran % 0.30 % [facility] Comment: Immature granulocytes(IG's)percentage and absolute count will include metamyelocytes, myelocytes, and promyelocytes. Blood smears from CBCs yielding IG's will be scanned manually for concordance. If this scan disagrees with the automated IG or if promyelocytes are noted, a manual differential will be performed. Immature Gran Absolute 0.03 0.00 - 0.04 x10(3)/mc L [facility] Blood specimen (specimen) 02/03/2017 9:35 AM EDT 02/03/2017 9:40 AM EDT Narrative Resulting Agency Comment Spec In Lab Shoshana Roach King RADHA HEMATOLOGY ORDERABLE S [facility] [place] [address] * Hemogram (02/03/2017 9:35 AM EDT) White Blood Cell 9.5 4.0 - 9.5 x10(3)/[facility] Red Blood Cell 4.99 4.58 - 5.54 x10(6)/[facility] Hemoglobin 15.3 13.7 - 16.5 gm/dL [facility] Hematocrit 44.5 40.5 - 48.5 % [facility] Mean Cell Volume 89.2 82.9 - 93.1 [facility] Mean Cell Hemoglobin 30.7 27.5 - 32.1 pg [facility] Mean Cell Hemoglobin Concentration 34.4 32.0 - 35.7 gm/dL [facility] Platelet 204 145 - 357 x10(3)/[facility] RDW Standard Deviation 37.7 36.0 - 45.0 [facility] RDW coefficient of variation 11.8 11.4 - 13.8 % [facility] Mean Platelet Volume 10.3 7.6 - 12.9 [facility] NRBC% auto 0.0 % [facility] NRBC Absolute 0.000 0.000 - 0.000 x10(3)/[facility] Blood specimen (specimen) 02/03/2017 9:35 AM EDT 02/03/2017 9:40 AM EDT Narrative Resulting Agency Comment Spec In Lab Shoshana J King RADHA HEMATOLOGY ORDERABLE S Performing Organization Address City/[facility]/ZIP Co de Phone Number [facility] [place] [address] * (ABNORMAL) Cardiac Enzymes (02/03/2017 9:35 AM EDT) Troponin-T 0.31(H) 0.00 - 0.00 ng/mL [facility] Comment: The 99th percentile for Troponin T is less than 0.01 ng/mL, any detectable cTnT concentration using this assay should be considered elevated. According to the third universal definition of myocardial infarction the following criteria with a clinical presentation consistent with acute myocardial ischemia meets the diagnosis for a myocardial infarction ([place]). Detection of a rise and/or fall of cTnT, with at least one value greater than the 99th percentile (> or = 0.01) and with at least one of the following ?? Symptoms of ischemia ?? New or presumed new significant QY-mewubii-I wave (ST-T) changes or new left bundle [...] additional sample may be indicated. Reference: Third [place] Definition of Myocardial Infarction. Journal of the [employer] College [employer]iology 2012;60:1581-98 Creatine Kinase 264(H) 0 - 200 unit/L [facility] Blood specimen (specimen) 02/03/2017 9:35 AM EDT 02/03/2017 9:40 AM EDT Narrative Resulting Agency Comment Spec In Lab Shoshana J King RADHA CHEMISTRY ORDERABLES Performing Organization Address [facility]/ZIP Co de Phone Number [facility] [place] [address] * (ABNORMAL) pro-Brain Natriuretic Peptide (02/03/2017 9:35 AM EDT) NT-proBNP 1,411(H) <=450 pg/mL [facility] Blood specimen (specimen) 02/03/2017 9:35 AM EDT 02/03/2017 9:40 AM EDT Narrative Resulting Agency Comment Spec In Lab Shoshana Moyer RADHA CHEMISTRY ORDERABLES Performing Organization Address [facility] Co de Phone Number [facility] [place] [address] * (ABNORMAL) APTT (02/03/2017 9:35 AM EDT) Partial Thromboplastin Time 64(H) 25 - 35 sec [facility] Comment: The recommended therapeutic range for full dose, unfractionated heparin at [facility] is 80 ? 114 [...] RADHA HEMATOLOGY ORDERABLE S Performing Organization Address [facility] de Phone Number [facility] [place] [address] * Prothrombin Time (02/03/2017 9:35 AM EDT) Prothrombin Time 14.1 12.0 - 15.0 sec [facility] Comment: An [...] International Normalization Ratio 1.0 0.9 - 1.1 [facility] Blood specimen (specimen) 02/03/2017 9:35 AM EDT 02/03/2017 9:40 AM EDT Narrative Resulting Agency Comment Spec In Lab Shoshana Moyer APRN HEMATOLOGY ORDERABLE S [facility] [place] [address] * (ABNORMAL) Basic Metabolic Panel (non-fasting) (02/03/2017 9:35 AM EDT) Glucose 159 65 - 199 mg/dL [facility] Comment:Diabetes: >=200 mg/d L plus symptoms Blood Urea Nitrogen 15 10 - 20 mg/dL [facility] Creatinine 1.19 0.80 - 1.50 mg/dL [facility] Comment: Please note that the pediatric reference intervals supplied above were not validated at [facility]. Results from pediatric patients should be interpreted in conjunction to the patient's age, height and muscle mass. Sodium 140 135 - 145 mmol/L [facility] Potassium 4.0 3.5 - 5.0 mmol/L [facility] Comment: Please note: ??Patients with WBC >100,000 may have falsely elevated Potassium levels. ??For accurate Potassium quantification in these patients send serum separator tube (gold top) for subsequent determinations. ??Contact the Clinical Chemistry Laboratory if there are any questions. Chloride 103 98 - 107 mmol/L [facility] Carbon Dioxide 22 22 - 31 mmol/L [facility] Anion Gap 15 5 - 15 mmol/L [facility] Calcium 9.3 8.5 - 10.5 mg/dL [facility] Est Glomerular Filtration Rate 59(L) >=60 [facility] Comment: This estimated GFR [...] the following links into your internet browser. [email or web address] Blood specimen (specimen) 02/03/2017 9:35 AM EDT 02/03/2017 9:40 AM EDT Narrative Resulting Agency Comment Spec In Lab Shoshana Moyer APRN CHEMISTRY ORDERABLES Performing Organization Address [facility] Co de Phone Number [facility] [place] [address] * EKG 12 Lead (02/03/2017 9:23 AM EDT) Ventricular rate 71 BPM MUSE SYSTEM Atrial Rate 71 BPM MUSE SYSTEM P-R Interval 236 ms MUSE SYSTEM QRS Duration 96 ms MUSE SYSTEM Q-T Interval 448 ms MUSE SYSTEM QTC Calculated (Bezet) 486 ms MUSE SYSTEM Calculated P [place] -5 degrees MUSE SYSTEM Calculated R [place] -17 degrees MUSE SYSTEM Calculated T [place] 79 degrees MUSE SYSTEM INTERPRETATION Sinus rhythm with 1st degree A-V block Inferior infarct , age undetermined T wave abnormality, consider anterolateral ischemia Abnormal ECG When compared with ECG of 12-APR-2011 07:31, T wave inversion now evident in Anterolateral leads Confirmed by MD Elsie, Rosendo Walker ([id number]) on 02/04/2017 9:15:41 AM MUSE SYSTEM 02/03/2017 9:23 AM EDT 02/04/2017 9:15 AM EDT Shoshana Moyer APRN ECG ORDERABLES Performing Organization Address [facility] Co de Phone Number MUSE [...] Fri02/03/17 at 2159, Recovery (Recovery-Hospital Unit) [facility] 02/03/2017 4:57 PM EDT 100 [...] Routine documented in this encounter Care Teams Trim Crew Supervisor Relationship Specialty Start Date End Date Arely Moise MD [address] [place] [address] PCP - General Family Medicine 09/16/16 documented as of this encounter
--- OUTSIDE RECORDS SUMMARY | 2023-12-24 06:54 | XMS_ITS | Encounter Summary ---
Author Organization [facility] Address [facility] [place] [address] Care Team Providers Care Project Development Director Name Role Phone Rolando Zacarias MD Primary Care Provider [phone] Encounter Details Date Type Department Care Team (Latest Contact Info) Description 10/06/2012 12:00 PM EDT - 10/06/2012 11:59 PM EDT Hospital [place] [phone] AAA (abdominal aortic aneurysm) Social History Tobacco [...] Sig Dispensed Refills Start Date End Date [place]-3 Fatty Acids-Vitamin E (FISH OIL) 1,000 mg [...] CT Scan on 6-4 @ 12pm Per [facility] Policy it is important that you stop [...] contrast out of your body. Thank You, [facility] CT Scan Dept documented in this encounter Plan of Treatment Upcoming Encounters Date Type Department Care Team (Latest Contact Info) Description 01/02/2024 1:30 PM EDT Laboratory Appointment Lab [address] [place] [phone] 01/02/2024 3:00 PM EDT Office Visit Neph[place] [address] Adam Costa MD [facility] [place] [address] documented as of this encounter Procedures Procedure [...] artery remains patent. 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 ??The [place] abdominal aortic aneurysm sac has decreased [...] artery remains patent. Maximum caliber of the [place] abdominal aortic aneurysm sac has decreased [...] due theinflow from an ileolumbar artery. The [place] abdominal aortic aneurysm sac has decreased [...] mg documented in this encounter Care Teams Project Development Director Relationship Specialty Start Date End Date Rolando Zacarias MD PCP - General 04/12/11 09/15/16 documented as of this encounter
--- OUTSIDE RECORDS SUMMARY | 2023-12-24 06:54 | XMS_ITS | Encounter Summary ---
Author Organization [facility] Address [facility] [place] [address] Care Team Providers Care Key Punch Operator Name Role Phone Rolando Zacarias MD Primary Care Provider [phone] Encounter Details Date Type Department Care Team (Late st Contact Info) Description 10/07/2012 Orders [place] [phone] Skye Washington RN S/P aortic aneurysm repair [...] 1:30 PM EDT Laboratory Appointment Lab [address] [place] [phone] 01/02/2024 3:00 PM EDT Office Visit Ne[place] [phone] Adam Costa MD [facility] [place] [address] documented as of this encounter Visit Diagnoses Diagnosis S/P aortic aneurysm repair- Primary Other postprocedural status documented in this encounter Care Teams Key Punch Operator Relationship Specialty Start Date End Date Rolando Zacarias MD PCP - General 04/12/11 09/15/16 documented as of this encounter
--- OUTSIDE RECORDS SUMMARY | 2023-12-24 06:54 | XMS_ITS | Encounter Summary ---
Author Organization [facility] Address [facility] [place] [address] Care Team Providers Care Log Chain Feeder Name Role Phone Rolando Zacarias MD Primary Care Provider [phone] Reason for Visit * Reason Comments Aneurysm (Aortic) Encounter Details Date Type Department Care Team (Late st Contact Info) Description 04/23/2011 3:20 PM EST Office Visit [place] [phone] Steven Borges MD [facility] [place] [address] AAA (abdominal aortic aneurysm) without rupture (Primary [...] 1:30 PM EDT Laboratory Appointment Lab [address] [place] [address] 01/02/2024 3:00 PM EDT Office Visit [place] [address] Adam Costa MD [facility] [place] [address] documented as of this encounter Visit Diagnoses Diagnosis AAA (abdominal aortic aneurysm) without rupture- Primary Abdominal aneurysm without mention of rupture documented in this encounter Care Teams Log Chain Feeder Relationship Specialty Start Date End Date Rolando Zacarias MD PCP - General 04/12/11 09/15/16 documented as of this encounter
--- OUTSIDE RECORDS SUMMARY | 2023-12-24 06:54 | XMS_ITS | Encounter Summary ---
Author Organization [facility] Address [facility] [place] [address] Care Team Providers Care Retail Business Development Manager Name Role Phone Rolando Zacarias MD Primary Care Provider [phone] Encounter Details Date Type Department Care Team (Latest Contact Info) Description 08/11/2014 9:05 AM EDT - 08/11/2014 11:59 PM EDT Hospital Encounter CT Scan at [facility] [place] [phone] CLINIC, DR [facility] AAA (abdominal aortic aneurysm) [...] mg by mouth 3 times daily. 02/03/2017 [place]-3 Fatty Acids-Vitamin E (FISH OIL) 1,000 mg [...] CT Scan on 08/11/2014 @ 9:40AM Per [facility] Policy it is important that you stop taking your Metformin (Diabetic Medication) for 2 days following the injection of IV iodinated contrast. You canstart taking your Metformin on 08/13/2014. If you have any questions or concerns, contact your primary care provider. Also drink plenty of water following your CT Scan to help clear the IV Iodinated contrast out of your body. Thank You, [facility] CT Scan Dept documented in this encounter Plan of Treatment Upcoming Encounters Date Type Department Care Team (Latest Contact Info) Description 01/02/2024 1:30 PM EDT Laboratory Appointment Lab [address] [place] [phone] 01/02/2024 3:00 PM EDT Office Visit Neph[place] [address] Adam Costa MD [facility] [place] [address] documented as of this encounter Procedures Procedure [...] less conspicuous on the current study. Stable [place] aneurysm sac size. Findings noted previously of either resolving or very early proximal sigmoid diverticulitis without perforation or abscess are stable. Narrative 08/11/2014 10:45 AM EDT EXAMINATION: CTA of Abdomen and Pelvis With Contrast CLINICAL HISTORY: AAA s/p EVAR Endovascular repair of aortic aneurysm, using [place] Zenith Flex [id number] via right ipsilateral extension with TFLE 16-56 [...] distal limbs stable. Maximum caliber of the [place] abdominal aortic aneurysm sac unchanged, currently measuring 7.7 x 5.6 cm compared to prior of 7.6 x 5.5 cm. In 2011, this measured 7.6 x 5.3 cm. Contrast extravasation into the [place] abdominal aortic aneurysm sac evident only on [...] repair of aortic aneurysm,using [place] Zenith Flex [id number] via right ipsilateral extension with [id number] contralateral extension with TFLE 16-73; Apr 12, [...] distal limbs stable. Maximum caliber of the [place] abdominalaortic aneurysm sac unchanged, currently measuring 7.7 x 5.6 cm compared to priorof 7.6 x 5.5 cm. In 2011, this measured 7.6 x 5.3 cm. Contrast extravasationinto the [place] abdominal aortic aneurysm sac evident only on [...] mg documented in this encounter Care Teams Retail Business Development Manager Relationship Specialty Start Date End Date Rolando Zacarias MD PCP - General 04/12/11 09/15/16 documented as of this encounter
--- OUTSIDE RECORDS SUMMARY | 2023-12-24 06:54 | XMS_ITS | Encounter Summary ---
Author Organization [facility] [place] [address] Care Team Providers Care Personal Finance Instructor Name Role Phone Rolando Moise MD Primary Care Provider [phone] Reason for Visit * Auth/Cert Specialty Diagnoses / Procedures Referred By Contac t Referred To Contact Diagnoses NSTEMI (non-ST elevated myocardial infarction) NSTEMI ?CAD Procedures CARDIAC CATHETERIZATION Referral ID Status Reason Start Date Expiration Date Visits Re quested Visits Authorized [id number] 1 1 Encounter Details Date Type Department Care Team (Latest Contact Info) Description 02/03/2017 11:45 AM EDT - 02/03/2017 11:59 PM EDT Hospital Encounter Non-In[place] [phone] Discharge Disposition: Home Social History Tobacco Use [...] Take 20 mg by mouth daily. 02/05/2017 [place]-3 Fatty Acids-Vitamin E (FISH OIL) 1,000 mg Cap Take by mouth daily. Reported on 09/16/2016 02/05/2017 metFORMIN (GLUCOPHAGE) 500 mg tablet Take 500 mg by mouth 2 times daily (with meals). 11/09/2020 documented as of this encounter Plan of Treatment Upcoming Encounters Date Type Department Care Team (Latest Contact Info) Description 01/02/2024 1:30 PM EDT Laboratory Appointment Lab [address] [place] [address] 01/02/2024 3:00 PM EDT Office Visit [place] [address] Adam Costa MD [facility] [place] [address] documented as of this encounter Procedures Procedure [...] mLs documented in this encounter Care Teams Personal Finance Instructor Relationship Specialty Start Date End Date Rolando Moise MD [facility] [place] [address] PCP - General Family Medicine 09/16/16 documented as of this encounter
--- OUTSIDE RECORDS SUMMARY | 2023-12-24 06:54 | XMS_ITS | Encounter Summary ---
Author Organization [facility] Address [facility] [place] [address] Care Team Providers Care Body Shop Mechanic Name Role Phone Arely Moise MD Primary Care Provider [phone] Reason for Visit * Auth/Cert Specialty Diagnoses / Procedures Referred By Contac t Referred To Contact Diagnoses NSTEMI (non-ST elevated myocardial infarction) NSTEMI ?CAD Procedures CARDIAC CATHETERIZATION Referral ID Status Reason Start Date Expiration Date Visits Re quested Visits Authorized [id number] 1 1 Encounter Details Date Type Department Care Team (Late st Contact Info) Description 02/03/2017 2:40 PM EDT - 02/03/2017 3:40 PM EDT Surgery Department Chairperson [facility] [place] [id number] Lydia Harden MD [facility] [place] [address] CARDIAC CATHETERIZATION Social History Tobacco Use Types [...] Cesar Thompson Patient Age: 81 y.o. Language: Irish Race: White Ethnicity: Not nor Admit date: 02/03/2017 Discharge date and time: 02/05/2017 Attending Physician: Bayron Oliva MD Discharge Physician: Bayron Oliva MD Follow-up Recommendations for Providers: 1. Continue clopidogrel 75 mg and aspirin 81 mg PO daily for 12 months otherwise told differently by Cuff Knitter. 2. Please monitor heart rate and blood pressure. 3. Start metoprolol XL 100 mg daily 4. Discontinue verapamil 120 mg tablet PO 5. Resume metformin 500 mg tablet PO two times a day, needs to take his second metformin dose tonight. Inpatient Provider Contact Information: Lili Ryan PA-C [facility] Provider # [id number] Discharge Diagnoses (Hospital Problems) and Secondary Diagnoses [...] above for more information.) History of Presentation: [facility] Comments: Mr. Thompson is an 81-year-old male with a past medical history of hypertension, AAA, hyperlipidemia and diabetes mellitus llf-ovnsoef-pikjchsow who presented to [facility] with [...] to the ED. He drove himself. ?? [facility] did an EKG which showed sinus [...] is most likely a non-STEMI. ED called [facility] cardiology which recommended to start Plavix 300 mg orally and was started to heparin per ACS protocol. ?? Hospital Course: On admission to [facility], the patient had complaints of chest pain and some shortness of breath with exertion. Telemetry was attached which showed normal sinus rhythm. Heparin drip was infusing. [facility] records/transfer records were reviewed. Baseline labs were checked and/or drawn. NSTEMI Given the patient's risk factors and ECG changes, positive biomarkers, it was decided to proceed with coronary angiography. The patient went to the cardiac pharmaceutical laboratory technician for a diagnostic cath which showedone vessel [...] 2:00 PM Shoshana Gaspar APRN [facility] [phone] Future Orders Complete By Expires Referral to Cardiac Rehab [[id number] Custom] As directed Process Instructions: If no progress note charted, please enter Clinical details in comments. Scheduling Instructions: Questions: My question or request is: NSTEMI, PCI. Cardiac rehab at [facility] Discharge References/Attachments MYRA INHIBITORS AND ARBS: GENERAL INFO ([place]THER[place]ISH) PCI (PERCUTANEOUS CORONARY INTERVENTION): POST-OP ([place]ISH) HYPERTENSION: GENERAL INFO ([place] IRISH) Lili Ryan PA-C 02/05/2017 documented in this encounter Discharge Instructions * Discharge Instructions* Shoshana Gaspar APRN - 02/05/2017 10:31 AM EDT Anti-coagulation follow up: Continue on plavix and aspirin for at least 12 months until otherwise told by his Cuff Knitter. Call your doctor if: Chest pain, shortness of breath, pain or swelling in legs occurs. If you have non-emergent questions between now and the time of your follow up appointments: During 8am-5pm Friday through Friday call [phone] to speak with a nurse in the cardiology clinic All other times call [phone] and ask to speak to the spanish literature professor health concierge. Return to work: One week Driving: No driving for 48 hours after catheterization. Follow up Appointments: PCP Arely Moise MD [phone] Your follow up appointment is scheduled for February 12, 2017 at 10:00 am Cardiology [facility] : Shoshana Gaspar NP Your follow up appointment is scheduled for March at 1:45 pm. Resume metformin 500 mg tablet PO two times a day tonight (02/05) for evening dose * Attachments The following attachments cannot be sent through Care Everywhere. * MYRA INHIBITORS AND ARBS: GENERAL INFO ([place]THER[place] IRISH) * PCI (PERCUTANEOUS CORONARY INTERVENTION): POST-OP ([place]ISH) * HYPERTENSION: GENERAL INFO ([place] IRISH) documented in this encounter Medications at Time [...] Progress Note Patient Name: Cesar Thompson Service: TOW MOTOR MECHANIC / PA Responsible Attending: Bayron Oliva MD [...] 81 mg daily for 12 months per grey iron molder. - continue Atorvastin, lisinopril. - Discontinue short [...] between care. SR/ST on tele with 1'AVB (RI 0.24), frequent PACs, occasional NS atrial trigem, HR 45-107. Pt sats well on RA; denied pain/discomfort and SOB throughout the shift. R radial cath site BENCH SCIENTIST, slightly ecchymotic, but soft. PLAN MOVING FORWARD: [...] Progress Note Patient Name: Cesar Thompson Service: TOW MOTOR MECHANIC / PA Responsible Attending: Bayron Oliva MD [...] 81 mg daily for 12 months per grey iron molder. - continue Atorvastin 40 mg daily - [...] of hypertension, AAA, hiperlididemia and diabetes mellitus zau-yxesdka-djvwwhgwk who presented to [facility] with [...] go to the ED. He drove himself. [facility] did an EKG which showed sinus [...] is most likely a non-STEMI. ED called [facility] cardiology which recommended to [...] REPAIR, GORE performed by ACACIA BRYANT at [facility] OR ??? PRO AAA REPAIR, MODULR BIFUR PROSTH, 2-DOCK 04/12/2011 @EVG, AAA, W\ MODULAR BIFURCATED PROS. W\ 2 DOCKING LIMBS performed by ACACIA BRYANT at [facility] OR ??? PRO AAA REPR, EXPOSE FEMORAL ART, GROIN INCIS 04/12/2011 @EXPOSURE, OPEN FEM. ARTERY FOR ENDOVASCULAR PROSTHESIS, GROIN-FABIANA performed by ACACIA BRYANT at [facility] OR ? ? PRO ENDOVASC REPAIR INFRARENAL AAA/DISSECTION S&I 04/12/2011 @EVG, INFRARENAL AAA OR DISSECTION, S&I performed by ACACIA BRYANT at [facility] OR Significant Family History: No [...] Take 0.4 mg by mouth daily. ??? [place]-3 Fatty Acids-Vitamin E (FISH OIL) 1,000 mg [...] of hypertension, AAA, hiperlididemia and diabetes mellitus acs-lwprdbh-akyqgndsf who presents to [facility] with [...] -check A1c Provider: QUINN Ness Provider #: [id number] 02/03/2017 Cardiology staff addendum I have discussed, [...] ANEURYSM, S&I [facility] OR ??? PRO AAA REPAIR, 1ST VESSEL, EXTENSION PROSTH 04/12/2011 @EVG-PLACEMENT, CUFF OR EXT. AORTIC OR ILIAC ANEURYSM REPAIR, GORE performed by ACACIA BRYANT at [facility] OR ??? PRO AAA REPAIR, MODULR BIFUR PROSTH, 2-DOCK 04/12/2011 @EVG, AAA, W\ MODULAR BIFURCATED PROS. W\ 2 DOCKING LIMBS performed by ACACIA BRYANT at [facility] OR ??? PRO AAA REPR, EXPOSE FEMORAL ART, GROIN INCIS 04/12/2011 @EXPOSURE, OPEN FEM. ARTERY FOR ENDOVASCULAR PROSTHESIS, GROIN-FABIANA performed by ACACIA BRYANT at [facility] OR ? ? PRO ENDOVASC REPAIR INFRARENAL AAA/DISSECTION S&I 04/12/2011 @EVG, INFRARENAL AAA OR DISSECTION, S&I performed by ACACIA BRYANT at [facility] OR Hospitalizations Within the Past [...] per patient Preferred Pharmacy: [facility]?? Other: [facility] mail order pharmacy Primary Care Provider: Arely Moise MD [phone] Patient/Caregiver Goals of Treatment: per medical team [...] of care planning. Shital Schmidt RN Pager: [phone] * Consult Note - Riya Kellogg RN [...] in the outpatient cardiac rehabilitation program at [facility] was discussed. Patient agrees to a referral [...] 01/02/2024 1:30 PM EDT Laboratory Appointment Lab [address] [address] 01/02/2024 3:00 PM EDT Office Visit Neph[place] [address] Adam Costa MD [facility] [place] [address] Scheduled Referrals Name Type Priority Associated Diagnoses Orde r Schedule Referral to Cardiac Rehab Outpatient Referral Routine Non-ST elevation myocardial infarction (NSTEMI) Ordered: 02/05/2017 documented as of this encounter Procedures Procedure Name Priority Date/Time Associated Diagnosis Comments BLASTING HELPER SCAN 02/06/2017 12:00 AM EDT POCT GLUCOSE [...] 02/05/20 17 3:33 AM EDT CARDIAC ENZYMES ([facility]) Routine 02/04/2017 3:33 AM [...] Non-ST elevation myocardial infarction (NSTEMI) CARDIAC ENZYMES ([facility]) STAT 02/03/2017 9:00 PM EDT POCT GLUCOSE Routine 02/03/2017 8:29 PM EDT POCT GLUCOSE Routine 02/03/2017 4:54 PM EDT EKG 12-LEAD Routine 02/03/2017 4:43 PM EDT Non-ST elevation myocardial infarction (NSTEMI) CARDIAC CATHETERIZATION Routine 02/04/20 17 4:26 PM EDT CARDIAC ENZYMES ([facility]) Routine 02/03/2017 3:00 PM [...] 02/04/20 17 9:35 AM EDT CARDIAC ENZYMES ([facility]) STAT 02/03/2017 9:35 AM [...] this encounter Results * SCAN DOC: BLASTING HELPER (02/06/2017 12:00 AM EDT) Anatomical Region Laterality Modality Other Narrative 02/06/2017 12:00 AM EDT Ordered by an unspecified provider. Scanning Provider MEDIA MGR SCAN EXT O RDR/RSLT * POCT Glucose (02/05/2017 7:32 AM EDT) Glucose, POC 160 65 - 199 mg/dL [facility] Comment: Supplemental ranges: <140 mg/dL before meals <180 mg/dL all other times of the day Blood specimen (specimen) 02/05/2017 7:32 AM EDT 02/05/2017 7:32 AM EDT Bayron Oliva MD POINT OF CARE TEST O RDERABLES Performing Organization Address City/[facility]/ZIP Co de Phone Number [facility] [place] [address] * EKG 12 Lead (02/05/2017 7:26 AM EDT) Ventricular rate 54 BPM MUSE SYSTEM Atrial Rate 54 BPM MUSE SYSTEM P-R Interval 214 ms MUSE SYSTEM QRS Duration 96 ms MUSE SYSTEM Q-T Interval 486 ms MUSE SYSTEM QTC Calculated (Bezet) 460 ms MUSE SYSTEM Calculated P [place] 14 degrees MUSE SYSTEM Calculated R [place] 112 degrees MUSE SYSTEM Calculated T [place] 143 degrees MUSE SYSTEM INTERPRETATION Sinus bradycardia [...] 3:43 AM EDT) Neutrophil % 63.2 % [facility] Neutrophil Absolute 7.21(H) 1.70 - 6.10 x10(3)/mc L [facility] Lymph % 20.7 % [facility] Lymphocytes Abs 2.4 0.9 - 3.2 x10(3)/ L [facility] Monocyte % 11.2 % [facility] Monocyte Abs 1.3(H) 0.3 - 0.9 x10(3)/ L [facility] Eos % 4.1 % [facility] Eosinophils Abs 0.5(H) 0.0 - 0.4 x10(3)/[facility] Basophil % 0.5 % [facility] Baso Absolute 0.1 0.0 - 0.1 x10(3)/[facility] Immature Gran % 0.30 % [facility] Comment: Immature granulocytes(IG's)percentage and absolute count will include metamyelocytes, myelocytes, and promyelocytes. Blood smears from CBCs yielding IG's will be scanned manually for concordance. If this scan disagrees with the automated IG or if promyelocytes are noted, a manual differential will be performed. Immature Gran Absolute 0.03 0.00 - 0.04 x10(3)/[facility] Blood specimen (specimen) 02/05/2017 3:43 AM EDT 02/05/2017 3:52 AM EDT Narrative Resulting Agency Comment Spec In Lab Shoshana Moyer APRN HEMATOLOGY ORDERABLE S [facility] [place] [address] * (ABNORMAL) Hemogram (02/05/2017 3:43 AM EDT) White Blood Cell 11.4(H) 4.0 - 9.5 x10(3)/[facility] Red Blood Cell 4.48(L) 4.58 - 5.54 x10(6)/[facility] Hemoglobin 14.0 13.7 - 16.5 gm/dL [facility] Hematocrit 41.1 40.5 - 48.5 % [facility] Mean Cell Volume 91.7 82.9 - 93.1 fL [facility] Mean Cell Hemoglobin 31.3 27.5 - 32.1 pg [facility] Mean Cell Hemoglobin Concentration 34.1 32.0 - 35.7 gm/dL [facility] Platelet 168 145 - 357 x10(3)/mc L [facility] RDW Standard Deviation 39.9 36.0 - 45.0 fL [facility] RDW coefficient of variation 11.8 11.4 - 13.8 % [facility] Mean Platelet Volume 10.2 7.6 - 12.9 fL [facility] NRBC% auto 0.0 % [facility] NRBC Absolute 0.000 0.000 - 0.000 x10(3)/mc L [facility] Blood specimen (specimen) 02/05/2017 3:43 AM EDT 02/05/2017 3:52 AM EDT Narrative Resulting Agency Comment Spec In Lab Shoshana Moyer APRN HEMATOLOGY ORDERABLE S Performing Organization Address City/State/[facility] Co de Phone Number [facility] [place] [address] * (ABNORMAL) BMP w/fasting Glucose (02/05/2017 3:43 AM EDT) Glucose Fasting 149(H) 65 - 99 mg/dL [facility] Comment: ?Fasting* Glucose Interpretive [...] of Diabetes Mellitus, Position Statement from the English Diabetes Association. ??Diabetes Care, Volume 33, Supplement 1, May 2009 Blood Urea Nitrogen 19 10 - 20 mg/dL [facility] Creatinine 1.46 0.80 - 1.50 mg/dL [facility] Comment: Please note that the pediatric reference intervals supplied above were not validated at [facility]. Results from pediatric patients should be interpreted in conjunction to the patient's age, height and muscle mass. Sodium 140 135 - 145 mmol/L [facility] Potassium 4.3 3.5 - 5.0 mmol/L [facility] Comment: Please note: ??Patients with WBC >100,000 may have falsely elevated Potassium levels. ??For accurate Potassium quantification in these patients send serum separator tube (gold top) for subsequent determinations. ??Contact the Clinical Chemistry Laboratory if there are any questions. Chloride 104 98 - 107 mmol/L [facility] Carbon Dioxide 24 22 - 31 mmol/L [facility] Anion Gap 12 5 - 15 mmol/L [facility] Calcium 8.8 8.5 - 10.5 mg/dL [facility] Est Glomerular Filtration Rate 46(L) >=60 [facility] Comment: This estimated [...] the following links into your internet browser. [email or web address] Blood specimen (specimen) 02/05/2017 3:43 AM EDT 02/05/2017 3:52 AM EDT Narrative Resulting Agency Comment Spec In Lab Shoshana Moyer APRN CHEMISTRY ORDERABLES [facility] [place] [address] * Magnesium (02/05/2017 3:43 AM EDT) Magnesium 0.77 0.69 - 1.07 mmol/L [facility] Blood specimen (specimen) 02/05/2017 3:43 AM EDT 02/05/2017 3:52 AM EDT Narrative Resulting Agency Comment Spec In Lab Shoshana Moyer APRN CHEMISTRY ORDERABLES [facility] [place] [address] * POCT Glucose (02/04/2017 8:10 PM EDT) Glucose, POC 189 65 - 199 mg/dL [facility] Comment: Supplemental ranges: <140 mg/dL before meals <180 mg/dL all other times of the day Blood specimen (specimen) 02/04/2017 8:10 PM EDT 02/04/2017 8:10 PM EDT Bayron Oliva MD POINT OF CARE TEST O BHASKAR Performing Organization Address [facility]/ZIP Co de Phone Number [facility] [place] [address] * POCT Glucose (02/04/2017 4:56 PM EDT) Glucose, POC 114 65 - 199 mg/dL [facility] Comment: Supplemental ranges: <140 mg/dL before meals <180 mg/dL all other times of the day Blood specimen (specimen) 02/04/2017 4:56 PM EDT 02/04/2017 4:56 PM EDT Bayron Oliva MD POINT OF CARE TEST O BHASKAR [facility] [place] [address] * POCT Glucose (02/04/2017 11:40 AM EDT) Glucose, POC 157 65 - 199 mg/dL [facility] Comment: Supplemental ranges: <140 mg/dL before meals <180 mg/dL all other times of the day Blood specimen (specimen) 02/04/2017 11:40 AM EDT 02/04/2017 11:40 AM EDT Bayron Oliva MD POINT OF CARE TEST Constance MURO Performing Organization Address [facility] Co de Phone Number [facility] [place] [address] * POCT Glucose (02/04/2017 7:53 AM EDT) Glucose, POC 178 65 - 199 mg/dL [facility] Comment: Supplemental ranges: <140 mg/dL before meals <180 mg/dL all other times of the day Blood specimen (specimen) 02/04/2017 7:53 AM EDT 02/04/2017 7:53 AM EDT Bayron Oliva MD POINT OF CARE TEST Constance MURO Performing Organization Address [facility] de Phone Number [facility] [place] [address] * EKG 12 Lead (02/04/2017 7:17 AM EDT) Ventricular rate 65 BPM MUSE SYSTEM Atrial Rate 65 BPM MUSE SYSTEM P-R Interval 248 ms MUSE SYSTEM QRS Duration 92 ms MUSE SYSTEM Q-T Interval 484 ms MUSE SYSTEM QTC Calculated (Bezet) 503 ms MUSE SYSTEM Calculated P [place] 29 degrees MUSE SYSTEM Calculated R [place] 99 degrees MUSE SYSTEM Calculated T [place] 140 degrees MUSE SYSTEM INTERPRETATION Sinus rhythm [...] interpretation Confirmed by fellow MD Katherine, Truong ([id number]) on 02/04/2017 9:02:44 AM Confirmed by MD RAUL, JOAN ([id number]) on 02/04/2017 10:47:37 AM MUSE SYSTEM 02/04/2017 7:17 AM EDT 02/04/2017 10:47 AM EDT Shoshana Moyer APRN ECG ORDERABLES MUSE SYSTEM * (ABNORMAL) Cardiac Enzymes (02/04/2017 3:33 AM EDT) Troponin-T 0.95(H) 0.00 - 0.00 ng/mL [facility] Comment: The 99th percentile for Troponin T is less than 0.01 ng/mL, any detectable cTnT concentration using this assay should be considered elevated. According to the third universal definition of myocardial infarction the following criteria with a clinical presentation consistent with acute myocardial ischemia meets the diagnosis for a myocardial infarction ([place]). Detection of a rise and/or fall of cTnT, with at least one value greater than the 99th percentile (> or = 0.01) and with at least one of the following ?? Symptoms of ischemia ?? New or presumed new significant JH-imppqwn-F wave (ST-T) changes or new left bundle [...] additional sample may be indicated. Reference: Third [place] Definition of Myocardial Infarction. Journal of the English College of Cardiology 2012;60:1581-98 Creatine Kinase 421(H) 0 - 200 unit/L [facility] Blood specimen (specimen) Venous Draw / Unknown 02/04/2017 3:33 AM EDT 02/04/2017 3:50 AM EDT Narrative Resulting Agency Comment Spec In Lab Shoshana Moyer APRN CHEMISTRY ORDERABLES Performing Organization Address City/[facility]/ZIP Co de Phone Number [facility] [place] [address] * (ABNORMAL) Differential, Automated (02/04/2017 3:33 AM EDT) Neutrophil % 70.9 % [facility] Neutrophil Absolute 10.32(H) 1.70 - 6.10 x10(3)/mc L [facility] Lymph % 17.5 % [facility] Lymphocytes Abs 2.6 0.9 - 3.2 x10(3)/ L [facility] Monocyte % 8.8 % [facility] Monocyte Abs 1.3(H) 0.3 - 0.9 x10(3)/ L [facility] Eos % 2.0 % [facility] Eosinophils Abs 0.3 0.0 - 0.4 x10(3)/[facility] Basophil % 0.4 % [facility] Baso Absolute 0.1 0.0 - 0.1 x10(3)/ L [facility] Immature Gran % 0.40 % [facility] Comment: Immature granulocytes(IG's)percentage and absolute count will include metamyelocytes, myelocytes, and promyelocytes. Blood smears from CBCs yielding IG's will be scanned manually for concordance. If this scan disagrees with the automated IG or if promyelocytes are noted, a manual differential will be performed. Immature Gran Absolute 0.06(H) 0.00 - 0.04 x10(3)/mc L [facility] Blood specimen (specimen) 02/04/2017 3:33 AM EDT 02/04/2017 3:50 AM EDT Narrative Resulting Agency Comment Spec In Lab Shoshana Moyer APRN HEMATOLOGY ORDERABLE S Performing Organization Address City/[facility]/ZIP Co de Phone Number [facility] [place] [address] * (ABNORMAL) Hemogram (02/04/2017 3:33 AM EDT) White Blood Cell 14.6(H) 4.0 - 9.5 x10(3)/[facility] Red Blood Cell 4.65 4.58 - 5.54 x10(6)/[facility] Hemoglobin 14.6 13.7 - 16.5 gm/dL [facility] Hematocrit 41.8 40.5 - 48.5 % [facility] Mean Cell Volume 89.9 82.9 - 93.1 fL [facility] Mean Cell Hemoglobin 31.4 27.5 - 32.1 pg [facility] Mean Cell Hemoglobin Concentration 34.9 32.0 - 35.7 gm/dL [facility] Platelet 192 145 - 357 x10(3)/[facility] RDW Standard Deviation 38.6 36.0 - 45.0 [facility] RDW coefficient of variation 11.8 11.4 - 13.8 % [facility] Mean Platelet Volume 10.1 7.6 - 12.9 fL [facility] NRBC% auto 0.0 % [facility] NRBC Absolute 0.000 0.000 - 0.000 x10(3)/[facility] Blood specimen (specimen) 02/04/2017 3:33 AM EDT 02/04/2017 3:50 AM EDT Narrative Resulting Agency Comment Spec In Lab Shoshana Moyer APRN HEMATOLOGY ORDERABLE S [facility] [place] [address] * (ABNORMAL) BMP w/fasting Glucose (02/04/2017 3:33 AM EDT) Glucose Fasting 138(H) 65 - 99 mg/dL [facility] Comment: ?Fasting* Glucose Interpretive [...] of Diabetes Mellitus, Position Statement from the [place] Diabetes Association. ??Diabetes Care, Volume 33, Supplement 1, May 2009 Blood Urea Nitrogen 15 10 - 20 mg/dL [facility] Creatinine 1.34 0.80 - 1.50 mg/dL [facility] Comment: Please note that the pediatric reference intervals supplied above were not validated at [facility]. Results from pediatric patients should be interpreted in conjunction to the patient's age, height and muscle mass. Sodium 139 135 - 145 mmol/L [facility] Potassium 4.2 3.5 - 5.0 mmol/L [facility] Comment: Please note: ??Patients with WBC >100,000 may have falsely elevated Potassium levels. ??For accurate Potassium quantification in these patients send serum separator tube (gold top) for subsequent determinations. ??Contact the Clinical Chemistry Laboratory if there are any questions. Chloride 102 98 - 107 mmol/L [facility] Carbon Dioxide 23 22 - 31 mmol/L [facility] Anion Gap 14 5 - 15 mmol/L [facility] Calcium 8.7 8.5 - 10.5 mg/dL [facility] Est Glomerular Filtration Rate 51(L) >=60 [facility] Comment: This estimated [...] the following links into your internet browser. [email or web address] Blood specimen (specimen) 02/04/2017 3:33 AM EDT 02/04/2017 3:50 AM EDT Narrative Resulting Agency Comment Spec In Lab Shoshana Moyer BALL MILL MIXER CHEMISTRY ORDERABLES Performing Organization Address [facility] de Phone Number [facility] [place] [address] * Magnesium (02/04/2017 3:33 AM EDT) Pathologist [facility] Magnesium 0.77 0.69 - 1.07 mmol/L [facility] Blood specimen (specimen) 02/04/2017 3:33 AM EDT 02/04/2017 3:50 AM EDT Narrative Resulting Agency Comment Spec In Lab Shoshana Moyer BALL MILL MIXER CHEMISTRY ORDERABLES Performing Organization Address [facility] de Phone Number [facility] [place] [address] * (ABNORMAL) Hepatic Function Panel (02/04/2017 3:33 AM EDT) Protein, Total 6.1 6.1 - 8.0 gm/dL [facility] Albumin 3.7 3.2 - 5.2 gm/dL [facility] Aspartate Aminotransferase 57(H) 0 - 39 unit/L [facility] Alanine Aminotransferase 34 0 - 55 unit/L [facility] Alkaline Phosphatase 71 40 - 120 unit/L [facility] Bilirubin, Total 0.7 0.2 - 1.3 mg/dL [facility] Bilirubin, Direct 0.1 0.0 - 0.3 mg/dL [facility] Blood specimen (specimen) 02/04/2017 3:33 AM EDT 02/04/2017 3:50 AM EDT Narrative Resulting Agency Comment Spec In Lab Shoshana Moyer BALL MILL MIXER CHEMISTRY ORDERABLES Performing Organization Address City/[facility]/ZIP Co de Phone Number [facility] [place] [address] * Triglyceride (02/04/2017 3:33 AM EDT) Triglyceride 171 <=199 mg/dL [facility] Blood specimen (specimen) 02/04/2017 3:33 AM EDT 02/04/2017 3:50 AM EDT Narrative Resulting Agency Comment Spec In Lab Shoshana Moyer BALL MILL MIXER CHEMISTRY ORDERABLES Performing Organization Address [facility] Co de Phone Number [facility] [place] [address] * (ABNORMAL) HDL/Cholesterol Profile (02/04/2017 3:33 AM EDT) Cholesterol, Total 106 <=239 mg/dL [facility] HDL Cholesterol 37(L) >=40 mg/dL [facility] Cholesterol/HDL Ratio 2.9 ratio [facility] Chol/HDL Interpretation See Note [facility] Comment: Lipid management should be guided by a patient? s ASCVD risk, goals and preferences. ACC/AHA Guidelines recommend high intensity statin if clinical ASCVD or LDL greater than or equal to 190 mg/dL. http://gestigon.com/CAK-KIH-Tseemwrez Measure LDL if Total Cholesterol minus HDL Cholesterol is greater than 220 mg/dL. Adults aged 40-75 with LDL 70-189 mg/dL should have their 10 year ASCVD risk estimated with the ACC/AHA ASCVD risk auto body repair estimator http://tools.acc.org/VYICV-Uwkq-Sfgpfpjxx/ Statin should be discussed if risk greater [...] Agency Comment Spec In Lab Shoshana Moyer CoworkingON CHEMISTRY ORDERABLES Performing Organization Address City/[facility]/ZIP Co de Phone Number [facility] [place] [address] * LDL Cholesterol, Direct (02/04/2017 3:33 AM EDT) LDL Cholesterol, Direct 47 <=190 mg/dL [facility] Blood specimen (specimen) 02/04/2017 3:33 AM EDT 02/04/2017 3:50 AM EDT Narrative Resulting Agency Comment Spec In Lab Shoshana Moyer CoworkingON CHEMISTRY ORDERABLES Performing Organization Address [facility] Co de Phone Number [facility] [place] [address] * (ABNORMAL) Hemoglobin A1c (02/04/2017 3:33 AM EDT) Hemoglobin A1c 6.2(H) 4.3 - 5.6 % [facility] Comment: Reference Range: 4.3 [...] Mellitus, Diabetes Care 2013; 36: Suppl. 1, Q97-96 Estimated Average Glucose See note mg/dL [facility] Comment: Estimated Average Glucose [...] into estimated average glucose values. ??Diabetes Care 2008:31(8):2705-3048. Blood specimen (specimen) 02/04/2017 3:33 AM EDT 02/04/2017 3:50 AM EDT Narrative Resulting Agency Comment Spec In Lab Shoshana Moyer APRN CHEMISTRY ORDERABLES [facility] [place] [address] * EKG 12 Lead (02/03/2017 9:16 PM EDT) Ventricular rate 77 BPM MUSE SYSTEM Atrial Rate 77 BPM MUSE SYSTEM P-R Interval 222 ms MUSE SYSTEM QRS Duration 90 ms MUSE SYSTEM Q-T Interval 458 ms MUSE SYSTEM QTC Calculated (Bezet) 518 ms MUSE SYSTEM Calculated P [place] 29 degrees MUSE SYSTEM Calculated R [place] 98 degrees MUSE SYSTEM Calculated T [place] 118 degrees MUSE SYSTEM INTERPRETATION Sinus rhythm [...] EDT) Troponin-T 0.71(H) 0.00 - 0.00 ng/mL [facility] Comment: The 99th percentile for Troponin T is less than 0.01 ng/mL, any detectable cTnT concentration using this assay should be considered elevated. According to the third universal definition of myocardial infarction the following criteria with a clinical presentation consistent with acute myocardial ischemia meets the diagnosis for a myocardial infarction ([place]). Detection of a rise and/or fall of cTnT, with at least one value greater than the 99th percentile (> or = 0.01) and with at least one of the following ?? Symptoms of ischemia ?? New or presumed new significant TL-gzwzdix-T wave (ST-T) changes or new left bundle [...] additional sample may be indicated. Reference: Third Whitfield Definition of Myocardial Infarction. Journal of the English College of Cardiology 2012;60:1581-98 Creatine Kinase 329(H) 0 - 200 unit/L [facility] Blood specimen (specimen) 02/03/2017 9:00 PM EDT 02/03/2017 9:05 PM EDT Narrative Resulting Agency Comment Spec In Lab Shoshana Moyer APRN CHEMISTRY ORDERABLES Performing Organization Address City/[facility]/ZIP Co de Phone Number [facility] [place] [address] * POCT Glucose (02/03/2017 8:29 PM EDT) Glucose, POC 197 65 - 199 mg/dL [facility] Comment: Supplemental ranges: <140 mg/dL before meals <180 mg/dL all other times of the day Blood specimen (specimen) 02/03/2017 8:29 PM EDT 02/03/2017 8:29 PM EDT Bayron Oliva MD POINT OF CARE TEST O BHASKAR Performing Organization Address [facility] Co de Phone Number [facility] [place] [address] * POCT Glucose (02/03/2017 4:54 PM EDT) Glucose, POC 144 65 - 199 mg/dL [facility] Comment: Supplemental ranges: <140 mg/dL before meals <180 mg/dL all other times of the day Blood specimen (specimen) 02/03/2017 4:54 PM EDT 02/03/2017 4:54 PM EDT Bayron Oliva MD POINT OF CARE TEST O BHASKAR Performing Organization Address [facility] Co de Phone Number [facility] [place] [address] * EKG 12 Lead (02/03/2017 4:43 PM EDT) Ventricular rate 81 BPM MUSE SYSTEM Atrial Rate 81 BPM MUSE SYSTEM P-R Interval 226 ms MUSE SYSTEM QRS Duration 96 ms MUSE SYSTEM Q-T Interval 420 ms MUSE SYSTEM QTC Calculated (Bezet) 487 ms MUSE SYSTEM Calculated P [place] 30 degrees MUSE SYSTEM Calculated R [place] -20 degrees MUSE SYSTEM Calculated T [place] -19 degrees MUSE SYSTEM INTERPRETATION Sinus rhythm [...] Modality Other Narrative 02/03/2017 4:43 PM EDT ?[facility] ? Cardiac Catheterization/Intervention Report ? Patient Name: Cesar Thompson D. ? Procedure Date: 02/03/2017 ? A #: [id number] ? Primary Physician: Lydia Harden ? Case #: [id number] ? File Name: [id number] ? Catheterization Order Number: [id number] ? [facility] ? Final Report [place], [place] ? Patient Name: ? Cesar Thompson ?ID#: ?[id number] ? : ?1935 ? Procedure Date: ? February 03, 2017 ?Case #: ? [id number] ? Room: ? 6 ? Case Physician: [...] patient presented with: non-STEMI (w/i 7 days). [place] ?Cardiovascular Society angina class was IV. This [...] dose administered prior to arrival in the pharmaceutical laboratory technician. ?Recommend continuing clopidogrel 75 mg PO daily [...] Procedure Note Lydia Harden MD - 08/08/2017 [facility] Cardiac Catheterization/Intervention Report Patient Name: Cesar Thompson Procedure Date: 02/03/2017 A #: [id number] Primary Physician: Lydia Harden Case #: [id number] File Name: [id number] Catheterization Order Number: [id number] [facility] FinalReport [place], [place] Patient Name: Cesar Thompson ID#:[id number] :1935 Procedure Date: February 03, 2017 Case [...] patient presented with: non-STEMI (w/i 7 days). [place] Cardiovascular Society angina class was IV. This [...] The lesion was predilated with a 2.50mm [id number] MM balloon with a maximum inflation pressure [...] dose administered prior to arrival in the pharmaceutical laboratory technician. Recommend continuing clopidogrel 75 mg PO daily [...] EDT) Troponin-T 0.48(H) 0.00 - 0.00 ng/mL [facility] Comment: The 99th percentile for Troponin T is less than 0.01 ng/mL, any detectable cTnT concentration using this assay should be considered elevated. According to the third universal definition of myocardial infarction the following criteria with a clinical presentation consistent with acute myocardial ischemia meets the diagnosis for a myocardial infarction ([place]). Detection of a rise and/or fall of cTnT, with at least one value greater than the 99th percentile (> or = 0.01) and with at least one of the following ?? Symptoms of ischemia ?? New or presumed new significant MO-wohmqlo-P wave (ST-T) changes or new left bundle [...] additional sample may be indicated. Reference: Third Whitfield Definition of Myocardial Infarction. Journal of the English College of Cardiology 2012;60:1581-98 Creatine Kinase 305(H) 0 - 200 unit/L [facility] Blood specimen (specimen) 02/03/2017 3:00 PM EDT 02/03/2017 3:22 PM EDT Narrative Resulting Agency Comment Spec In Lab Shoshana Moyer APRN CHEMISTRY ORDERABLES [facility] [place] [address] * TSH (02/03/2017 3:00 PM EDT) Thyroid Stimulating Hormone 1.18 0.27 - 4.20 mlU/ML [facility] Blood specimen (specimen) 02/03/2017 3:00 PM EDT 02/03/2017 3:22 PM EDT Narrative Resulting Agency Comment Spec In Lab Inder Medley MD CHEMISTRY ORDERABLES [facility] [place] [address] * XR Chest PA & Lateral (Generic) [...] ?EDD Hatch ?(Age): 1935(81y) Med Rec#: ? [id number] ?Sex: ?M ? Site Loc: ? [facility] ?Ht / Wt: ??175(cm)/85(kg) Pt. Loc: ?Adult Floor ? BSA: ?2.01 Study Date: ?? 02/03/2017 ?Pt. Type: Inpatient Tape: ? Referring: GRANTROBERTJ Referring: Inder Medley Reading: Mason Beth ([id number]) Supervisor Refining: Sonia Marcial Diagnosis: *ICD-10-PCS Non-ST elevation (NSTEMI) [...] ? Mid-Inferior ?Hypokinetic ? Mid-Inferoseptal ?Akinetic ? Hollister-Septal ? Akinetic ? Hollister-Anterior ? Akinetic ? Hollister-Lateral ?Akinetic ? Hollister-Inferior ? Akinetic ? Hollister-Tip ?Akinetic ? This report has been electronically signed by: Mason Beth MD ? 02/03/2017 13:42:39 Images reviewed and interpretation verified [facility] Cardiac Ultrasound Laboratory Procedure Note Mason Beth MD - 02/03/2017 Procedure: Transthoracic Echocardiogram Patient: EDD Hatch (Age): 1935(81y) Med Rec#: [id number] Sex: M Site Loc: [facility] Ht / Wt: 175(cm)/85(kg) Pt. Loc: Adult Floor BSA: 2.01 Study Date: 02/03/2017 Pt. Type: Inpatient Tape: Referring: CRISTAL Referring: Inder Medley Reading: Mason Beth ([id number]) Supervisor Refining: Sonia Marcial Diagnosis: *ICD-10-PCS Non-ST elevation (NSTEMI) [...] Hypokinetic Mid-Posterolateral Hypokinetic Mid-Inferior Hypokinetic Mid-Inferoseptal Akinetic Hollister-Septal Akinetic Hollister-Anterior Akinetic Hollister-Lateral Akinetic Hollister-Inferior Akinetic Hollister-Tip Akinetic This report has been electronically signed by: Mason Beth MD 02/03/2017 13:42:39 Images reviewed and interpretation verified [facility] Cardiac Ultrasound Laboratory Inder Medley MD ECHO ORDERABLES * POCT Glucose (02/03/2017 11:50 AM EDT) Glucose, POC 138 65 - 199 mg/dL [facility] Comment: Supplemental ranges: <140 mg/dL before meals <180 mg/dL all other times of the day Blood specimen (specimen) 02/03/2017 11:50 AM EDT 02/03/2017 11:50 AM EDT Bayron Oliva MD POINT OF CARE TEST O BHASKAR Performing Organization Address [facility] Co de Phone Number [facility] [place] [address] * (ABNORMAL) APTT (02/03/2017 11:50 AM EDT) [facility] Partial Thromboplastin Time 54(H) 25 - 35 sec [facility] Comment: The recommended therapeutic range for full dose, unfractionated heparin at [facility] is 80 ? 114 seconds. The use of the anti-Xa (heparin) level rather than the PTT is recommended for monitoring anticoagulation intensity in critically ill patients receiving unfractionated heparin by continuous IV infusion. Blood specimen (specimen) 02/03/2017 11:50 AM EDT 02/03/2017 12:05 PM EDT Narrative Resulting Agency Comment Spec In Lab Shoshana Moyer APRN HEMATOLOGY ORDERABLE S Performing Organization Address [facility] Phone Number [facility] [place] [address] * POCT Glucose (02/03/2017 10:13 AM EDT) [facility] Glucose, POC 148 65 - 199 mg/dL [facility] Comment: Supplemental ranges: <140 mg/dL before meals <180 mg/dL all other times of the day Blood specimen (specimen) 02/03/2017 10:13 AM EDT 02/03/2017 10:13 AM EDT Inder Medley MD POINT OF CARE TEST O BHASKAR Performing Organization Address [facility] Co de Phone Number [facility] [place] [address] * (ABNORMAL) Differential, Automated (02/03/2017 9:35 AM EDT) [facility] Neutrophil % 68.5 % [facility] Neutrophil Absolute 6.52(H) 1.70 - 6.10 x10(3)/[facility] LABORATORY Lymph % 20.1 % [facility] Lymphocytes Abs 1.9 0.9 - 3.2 x10(3)/[facility] LABORATORY Monocyte % 7.5 % [facility] Monocyte Abs 0.7 0.3 - 0.9 x10(3)/[facility] LABORATORY Eos % 2.9 % [facility] Eosinophils Abs 0.3 0.0 - 0.4 x10(3)/[facility] LABORATORY Basophil % 0.7 % [facility] Baso Absolute 0.1 0.0 - 0.1 x10(3)/[facility] LABORATORY Immature Gran % 0.30 % [facility] Comment: Immature granulocytes(IG's)percentage and absolute count will include metamyelocytes, myelocytes, and promyelocytes. Blood smears from CBCs yielding IG's will be scanned manually for concordance. If this scan disagrees with the automated IG or if promyelocytes are noted, a manual differential will be performed. Immature Gran Absolute 0.03 0.00 - 0.04 x10(3)/[facility] LABORATORY Blood specimen (specimen) 02/03/2017 9:35 AM EDT 02/03/2017 9:40 AM EDT Narrative Resulting Agency Comment Spec In Lab Shoshana Moyer APRN HEMATOLOGY ORDERABLE S [facility] [place] [address] * Hemogram (02/03/2017 9:35 AM EDT) White Blood Cell 9.5 4.0 - 9.5 x10(3)/[facility] LABORATORY Red Blood Cell 4.99 4.58 - 5.54 x10(6)/[facility] LABORATORY Hemoglobin 15.3 13.7 - 16.5 gm/dL [facility] Hematocrit 44.5 40.5 - 48.5 % [facility] Mean Cell Volume 89.2 82.9 - 93.1 fL [facility] Mean Cell Hemoglobin 30.7 27.5 - 32.1 pg [facility] Mean Cell Hemoglobin Concentration 34.4 32.0 - 35.7 gm/dL [facility] Platelet 204 145 - 357 x10(3)/[facility] LABORATORY RDW Standard Deviation 37.7 36.0 - 45.0 fL [facility] RDW coefficient of variation 11.8 11.4 - 13.8 % [facility] Mean Platelet Volume 10.3 7.6 - 12.9 fL [facility] NRBC% auto 0.0 % [facility] NRBC Absolute 0.000 0.000 - 0.000 x10(3)/[facility] LABORATORY Blood specimen (specimen) 02/03/2017 9:35 AM EDT 02/03/2017 9:40 AM EDT Narrative Resulting Agency Comment Spec In Lab Shoshana Moyer APRN HEMATOLOGY ORDERABLE S [facility] [place] [address] * (ABNORMAL) Cardiac Enzymes (02/03/2017 9:35 AM EDT) Troponin-T 0.31(H) 0.00 - 0.00 ng/mL [facility] Comment: The 99th percentile for Troponin T is less than 0.01 ng/mL, any detectable cTnT concentration using this assay should be considered elevated. According to the third universal definition of myocardial infarction the following criteria with a clinical presentation consistent with acute myocardial ischemia meets the diagnosis for a myocardial infarction ([place]). Detection of a rise and/or fall of cTnT, with at least one value greater than the 99th percentile (> or = 0.01) and with at least one of the following ?? Symptoms of ischemia ?? New or presumed new significant MU-tqgrnbl-N wave (ST-T) changes or new left bundle [...] additional sample may be indicated. Reference: Third Whitfield Definition of Myocardial Infarction. Journal of the English College of Cardiology 2012;60:1581-98 Creatine Kinase 264(H) 0 - 200 unit/L [facility] Blood specimen (specimen) 02/03/2017 9:35 AM EDT 02/03/2017 9:40 AM EDT Narrative Resulting Agency Comment Spec In Lab Shoshana Moyer APRN CHEMISTRY ORDERABLES Performing Organization Address [facility]/ZIP Co de Phone Number [facility] [place] [address] * (ABNORMAL) pro-Brain Natriuretic Peptide (02/03/2017 9:35 AM EDT) NT-proBNP 1,411(H) <=450 pg/mL [facility] Blood specimen (specimen) 02/03/2017 9:35 AM EDT 02/03/2017 9:40 AM EDT Narrative Resulting Agency Comment Spec In Lab Shoshana Moyer APRN CHEMISTRY ORDERABLES Performing Organization Address City/[facility]/ZIP Co de Phone Number [facility] [place] [address] * (ABNORMAL) APTT (02/03/2017 9:35 AM EDT) Partial Thromboplastin Time 64(H) 25 - 35 sec [facility] Comment: The recommended therapeutic range for full dose, unfractionated heparin at [facility] is 80 ? 114 seconds. The use of the anti-Xa (heparin) level rather than the PTT is recommended for monitoring anticoagulation intensity in critically ill patients receiving unfractionated heparin by continuous IV infusion. Blood specimen (specimen) 02/03/2017 9:35 AM EDT 02/03/2017 9:40 AM EDT Narrative Resulting Agency Comment Spec In Lab Shoshana Moyer APRN HEMATOLOGY ORDERABLE S Performing Organization Address [facility]/ZIP Co de Phone Number [facility] [place] [address] * Prothrombin Time (02/03/2017 9:35 AM EDT) Prothrombin Time 14.1 12.0 - 15.0 sec [facility] Comment: An INR <2.0 indicates [...] International Normalization Ratio 1.0 0.9 - 1.1 [facility] Blood specimen (specimen) 02/03/2017 9:35 AM EDT 02/03/2017 9:40 AM EDT Narrative Resulting Agency Comment Spec In Lab Shoshana Moyer APRN HEMATOLOGY ORDERABLE S Performing Organization Address [facility] Co de Phone Number [facility] [place] [address] * (ABNORMAL) Basic Metabolic Panel (non-fasting) (02/03/2017 9:35 AM EDT) Glucose 159 65 - 199 mg/dL [facility] Comment:Diabetes: >=200 mg/d L plus symptoms Blood Urea Nitrogen 15 10 - 20 mg/dL [facility] Creatinine 1.19 0.80 - 1.50 mg/dL [facility] Comment: Please note that the pediatric reference intervals supplied above were not validated at [facility]. Results from pediatric patients should be interpreted in conjunction to the patient's age, height and muscle mass. Sodium 140 135 - 145 mmol/L [facility] Potassium 4.0 3.5 - 5.0 mmol/L [facility] Comment: Please note: ??Patients with WBC >100,000 may have falsely elevated Potassium levels. ??For accurate Potassium quantification in these patients send serum separator tube (gold top) for subsequent determinations. ??Contact the Clinical Chemistry Laboratory if there are any questions. Chloride 103 98 - 107 mmol/L [facility] Carbon Dioxide 22 22 - 31 mmol/L [facility] Anion Gap 15 5 - 15 mmol/L [facility] Calcium 9.3 8.5 - 10.5 mg/dL [facility] Est Glomerular Filtration Rate 59(L) >=60 [facility] Comment: This estimated [...] the following links into your internet browser. [email or web address].org/DHnkdep [email or web address].org/[email or web address] Blood specimen (specimen) 02/03/2017 9:35 AM EDT 02/03/2017 9:40 AM EDT Narrative Resulting Agency Comment Spec In Lab Shoshana Moyer APRN CHEMISTRY ORDERABLES [facility] [place] [address] * EKG 12 Lead (02/03/2017 9:23 AM EDT) Ventricular rate 71 BPM MUSE SYSTEM Atrial Rate 71 BPM MUSE SYSTEM P-R Interval 236 ms MUSE SYSTEM QRS Duration 96 ms MUSE SYSTEM Q-T Interval 448 ms MUSE SYSTEM QTC Calculated (Bezet) 486 ms MUSE SYSTEM Calculated P [place] -5 degrees MUSE SYSTEM Calculated R [place] -17 degrees MUSE SYSTEM Calculated T [place] 79 degrees MUSE SYSTEM INTERPRETATION Sinus rhythm with 1st degree A-V block Inferior infarct , age undetermined T wave abnormality, consider anterolateral ischemia Abnormal ECG When compared with ECG of 12-APR-2011 07:31, T wave inversion now evident in Anterolateral leads Confirmed by MD Elsie, Rosendo Walker ([id number]) on 02/04/2017 9:15:41 AM MUSE SYSTEM 02/03/2017 [...] Winston Gómez [id number] (Given - Provider: Winston Gmóez NRP) fentaNYL 50mcg/mL injection (CANCELED) 25 mcg, [...] Routine documented in this encounter Care Teams Body Shop Mechanic Relationship Specialty Start Date End Date Arely Moise MD [address] [place] [address] PCP - General Family Medicine 09/16/16 documented as of this encounter
--- OUTSIDE RECORDS SUMMARY | 2023-12-24 06:54 | XMS_ITS | Encounter Summary ---
Author Organization [facility] [place] [address] Care Team Providers Care Branch Manager Trainee Name Role Phone Rolando Moise MD Primary Care Provider [phone] Encounter Details Date Type Department Care Team (Late st Contact Info) Description 02/03/2017 External [place] [phone] Jeanette Betancourt MD [facility] [place] [address] Social History Tobacco Use Types Packs/Day Years [...] 1:30 PM EDT Laboratory Appointment Lab [address] [place] [phone] 01/02/2024 3:00 PM EDT Office Visit [place] [phone] Adam Costa MD [facility] [place] [address] documented as of this encounter Procedures Procedure Name Priority Date/Time Associated Diagnosis Comments ECG SCAN Routine 02/03/2017 documented in this encounter Results * Scan Doc: ECG (02/03/2017) Jeanette Betancourt MD MEDIA MGR SCAN EXT O RDR/RSLT documented in this encounter Visit Diagnoses Not on filedocumented in this encounter Care Teams Branch Manager Trainee Relationship Specialty Start Date End Date Rolando Moise MD [facility] [place] [address] PCP - General Family Medicine 09/16/16 documented as of this encounter
--- OUTSIDE RECORDS SUMMARY | 2023-12-24 06:54 | XMS_ITS | Encounter Summary ---
Author Organization [facility] Address [facility] [place] [address] Care Team Providers Care Operations Plant Attendant Name Role Phone Rolando Moise MD Primary Care Provider [phone] Reason for Visit * Reason Comments Aneurysm (Aortic) Encounter Details Date Type Department Care Team (Late st Contact Info) Description 09/16/2016 2:00 PM EDT Office [place] [phone] Erik Gill MD [facility] [place] [address] Abdominal aortic aneurysm (AAA) without rupture Social [...] of aortic aneurysm, using Cook Zenith Flex [id number] via right; ipsilateral extension with TFLE 16-56; [...] 1:30 PM EDT Laboratory Appointment Lab [address] [place] [address] 01/02/2024 3:00 PM EDT Office Visit [place] [address] Adam Costa MD [facility] [place] [address] documented as of this encounter Visit Diagnoses Diagnosis Abdominal aortic aneurysm (AAA) without rupture documented in this encounter Care Teams Operations Plant Attendant Relationship Specialty Start Date End Date Rolando Moise MD [address] [place] [address] PCP - General Family Medicine 09/16/16 documented as of this encounter
--- OUTSIDE RECORDS SUMMARY | 2023-12-24 06:55 | XMS_ITS | Encounter Summary ---
Author Organization [facility] Address [facility] [place] [address] Care Team Providers Care Railway Head Tender Name Role Phone Arely Vickers MD Primary Care Provider [phone] Reason for Visit * Reason Comments Abdominal Pain Encounter Details Date Type Department Care Team (Late st Contact Info) Description 04/12/2011 10:58 AM EST - 04/12/2011 12:26 PM EST [place] [address] Steven Borges MD [facility] [place] [address] @EVG-PLACEMENT, CUFF OR EXT. AORTIC OR ILIAC [...] For any problems or questions please call [phone] Angela Mujica RN Vascular Nurse Clinician Loretta [...] yesterday. Will replete K again today. ID: [facility] trending down - patient on Vanc/zosyn for superimposed diverticulitis. Will start PO cipro/flagyl and have him continue for 7 more days. Dispo: Home today. * Christopher Barnes RN - 04/15/2011 4:05 PM EST Patient received from [facility] to [facility] in stable condition. 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 PRIMARY CARE PHYSICIAN: ARELY VICKERS MD [place] [phone] / [place] [id number] POTENTIAL DISCHARGE NEEDS: None anticipated; states can monitor his BP at home PATIENT/FAMILY EDUCATION NEEDS:per discharge summary ANTICIPATED BARRIERS TO DISCHARGE:none TRANSPORTATION @ D/C:friend Montse PLAN: Vascular CRC will continue to monitor progress, follow for continuity of care and assist withdischarge planning while hospitalized * Abhi Dukes, PharmD - 04/14/2011 2:08 PM EST Clinical Pharmacist Note-Vanc Cali Thompson [id number] 1935 Cali Thompson is a 75 y.o. [...] have. Alternately, during off-hours you may call [phone] to contact a pharmacist. ABHI DUKES PHARMD [...] - 04/13/2011 3:01 PM EST Cali Thompson [id number] 04/13/2011 04/12/2011 7:04 AM Critical Care Medicine [...] Q12H ??? DISCONTD: ceFAZolin 2 g Intravenous Golf Club Assembler to OR ??? DISCONTD: vancomycin 1 g Intravenous Q12H No Known Allergies EXAM: Temp: [35.7 ??C (96.3 ??F)-37.2 ??C (99 ??F)] Heart Rate: [47-80] Resp: [10-19] BP: (104)/(61) SpO2: [91 %-98 %] I/O last 3 completed shifts: In: 50300 [I.V.:63683] Out: 2300 [Urine:1700; Blood:600] I/O this shift: [...] 97 % SpO2: [91 %-98 %] SIMV/PS [id number] PEEP 5 FiO2 40% Last ABG 7.36/35/70/19 Intake/Output Summary (Last 24 hours) at 04/13/11 1155 Last data filed at 04/13/11 1000 Gross per 24 hour Intake 43497 ml Output 2775 ml Net 9784 ml [...] PM EST Clinical Pharmacist Note-Vanc Cali Thompson [id number] 1935 Cali Thompson is a 75 y.o. [...] have. Alternately, during off-hours you may call [phone] to contact a pharmacist. JIA VICTORIA PHARMD Pager [phone] * Chris Johnson - 04/12/2011 8:28 PM [...] 04/12/11 194 Gross per 24 hour Intake 54555 ml Output 1755 ml Net 8949 ml [...] MD - 04/12/2011 8:08 AM EST [facility] staff procedure note: Under sterile cond RIGHT radial a-line placed for hemodynamic monitoring. Hand intact, excellent waveform. documented in this encounter H&P Notes * Poli Chowdhury MD - 04/12/2011 8:22 AM EST Cali Thompson [id number] 04/12/2011 04/12/2011 7:04 AM Critical Care Medicine [...] Once ??? DISCONTD: ceFAZolin 2 g Intravenous Golf Club Assembler to OR No Known Allergies EXAM: Temp: [...] prior known history of AAA, presents to [facility] with c/o abdominal pain for 12hours. [...] urgently once medically optimized, endovascular graft candidate [facility] Staff: I saw and evaluated Mr. [...] 04/17/2011 11:15 AM ESTAssociated Order(s): SCAN DOC: GLOVE [employer]NER [employer]MER [employer] documented in this encounter ED Notes * [...] current pain regimen. Encouraged to notify staff respiratory therapist when inneed of pain medication. 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 On the right [...] removed the delivery system and advanced a 20-[place] dry seal up the right side. We [...] Operative Note Patient Name: Cali Thompson : [id number] MR#: [id number] Case Date: 04/12/2011 Surgeon: Surgeon(s) and Role: * STEVEN BORGES MD - Primary * JOAN VAIL MD - Fellow Preoperative diagnosis: symptomatic infrarenal aortic aneurysm Postoperative diagnosis: same Procedure(s): Bilateral femoral arterial exposures Endovascular repair of aortic aneurysm, using [employer] Flex [id number] via right; ipsilateralextension with TFLE 16-56; contralateral [...] exposures Endovascular repair of aortic aneurysm, using [employer] Flex [id number] via right; ipsilateralextension with TFLE 16-56; contralateral extension with TFLE 16-73 History of Presentation: 75 year old male without prior known history of AAA, presented to [facility] with complaints of abdominal pain for [...] For any problems or questions please call [phone] Angela Mujica RN Vascular Nurse Clinician Loretta Matthews RN Vascular Nurse Clinician Future Appointments and Orders Future Orders Please Complete By Expires CT abdomen & pelvis with contrast [[id number] Custom] 05/13/11 04/12/12 Process Instructions: Scheduling Instructions: [...] to the ED as a transfer from [facility] for vascular with a dx of [...] bedside upon pt arrival. Pt placed on monitor worker, labs obtained and sent. Pt c/o having [...] 01/02/2024 1:30 PM EDT Laboratory Appointment Lab [address] [address] 01/02/2024 3:00 PM EDT Office Visit [place] [address] Adam Costa MD [facility] [place] [address] documented as of this encounter Procedures Procedure [...] IMPLANTABLE DEVICES SCAN 04/17/2011 11:15 AM EST [employer] SCAN 04/17/2011 11:15 AM EST POCT GLUCOSE [...] SCAN EXT O RDR/RSLT * SCAN DOC: GLOVE T[employer] AND FORMER [employer]OM[employer]IC (04/17/2011 11:15 AM EST) Anatomical Region Laterality Modality Other Narrative 04/17/2011 3:20 PM EST Procedure Note Provider, Scanning - 04/17/2011 11:15 AM EST Scanning Provider MEDIA MGR SCAN EXT O RDR/RSLT * (ABNORMAL) POCT GLUCOSE LAB USE ONLY (04/16/2011 10:58 AM EST) Glucose, POC 257(H) 60 - 199 mg/dL [facility] Comment: Supplemental ranges: <110 mg/dL before meals <200 mg/dL all other times of the day Blood specimen (specimen) 04/16/2011 10:58 AM EST 04/16/2011 10:58 AM EST Randy Padilla MD POINT OF CARE TEST O BHASKAR Performing Organization Address [facility] de Phone Number [facility] * POCT GLUCOSE LAB USE ONLY (04/16/2011 7:21 AM EST) Glucose, POC 181 60 - 199 mg/dL [facility] Comment: Supplemental ranges: <110 mg/dL before meals <200 mg/dL all other times of the day Blood specimen (specimen) 04/16/2011 7:21 AM EST 04/16/2011 7:21 AM EST Randy Padilla MD POINT OF CARE TEST O BHASKAR Performing Organization Address [facility]/[employer] de Phone Number [facility] * (ABNORMAL) DIFFERENTIAL, AUTOMATED (04/16/2011 6:08 AM [...] MD HEMATOLOGY ORDERABLE S Performing Organization Address [facility] Phone Number DONNIE DIETZ * (ABNORMAL) POCT GLUCOSE LAB USE ONLY (04/15/2011 8:59 PM EST) Glucose, POC 217(H) 60 - 199 mg/dL [facility] Comment: Supplemental ranges: <110 mg/dL before meals <200 mg/dL all other times of the day Blood specimen (specimen) 04/15/2011 8:59 PM EST 04/15/2011 8:59 PM EST Randy Padilla MD POINT OF CARE TEST O RDERABLES Performing Organization Address [facility]/ZIP Co de Phone Number [facility] * POCT GLUCOSE LAB USE ONLY (04/15/2011 4:07 PM EST) Glucose, POC 162 60 - 199 mg/dL [facility] Comment: Supplemental ranges: <110 mg/dL before meals <200 mg/dL all other times of the day Blood specimen (specimen) 04/15/2011 4:07 PM EST 04/15/2011 4:07 PM EST Randy Padilla MD POINT OF CARE TEST O RDERAJAZZY Performing Organization Address [facility] de Phone Number [facility] * POCT GLUCOSE LAB USE ONLY (04/15/2011 12:46 PM EST) Glucose, POC 157 60 - 199 mg/dL [facility] Comment: Supplemental ranges: <110 mg/dL before meals <200 mg/dL all other times of the day Blood specimen (specimen) 04/15/2011 12:46 PM EST 04/15/2011 12:46 PM EST Randy Padilla MD POINT OF CARE TEST O BHASKAR Performing Organization Address [facility] Phone Number [facility] * POCT GLUCOSE LAB USE ONLY (04/15/2011 8:34 AM EST) Glucose, POC 173 60 - 199 mg/dL [facility] Comment: Supplemental ranges: <110 mg/dL before meals <200 mg/dL all other times of the day Blood specimen (specimen) 04/15/2011 8:34 AM EST 04/15/2011 8:34 AM EST Randy Padilla MD POINT OF CARE TEST O RDERAJAZZY Performing Organization Address [facility] Phone Number [facility] * (ABNORMAL) DIFFERENTIAL, AUTOMATED (04/15/2011 6:05 AM [...] Padilla MD CHEMISTRY ORDERABLES Performing Organization Address [facility] Phone Number [facility] * POCT GLUCOSE LAB USE ONLY (04/14/2011 8:46 PM EST) Glucose, POC 156 60 - 199 mg/dL [facility] Comment: Supplemental ranges: <110 mg/dL before meals <200 mg/dL all other times of the day Blood specimen (specimen) 04/14/2011 8:46 PM EST 04/14/2011 8:46 PM EST Randy Padilla MD POINT OF CARE TEST O RDERABLES Performing Organization Address [facility] Phone Number [facility] * POCT GLUCOSE LAB USE ONLY (04/14/2011 5:36 PM EST) Glucose, POC 159 60 - 199 mg/dL [facility] Comment: Supplemental ranges: <110 mg/dL before meals <200 mg/dL all other times of the day Blood specimen (specimen) 04/14/2011 5:36 PM EST 04/14/2011 5:36 PM EST Randy Padilla MD POINT OF CARE TEST O RDERABLES Performing Organization Address [facility] Phone Number [facility] * (ABNORMAL) POCT GLUCOSE LAB USE ONLY (04/14/2011 1:31 PM EST) Glucose, POC 201(H) 60 - 199 mg/dL [facility] Comment: Supplemental ranges: <110 mg/dL before meals <200 mg/dL all other times of the day Blood specimen (specimen) 04/14/2011 1:31 PM EST 04/14/2011 1:31 PM EST Randy Padilla MD POINT OF CARE TEST O RDERAJAZZY Performing Organization Address [facility]/ZIP Co de Phone Number DONNIE [...] Padilla MD CHEMISTRY ORDERABLES Performing Organization Address City/[facility]/[employer] de Phone Number DONNIE IDETZ * POCT GLUCOSE LAB USE ONLY (04/14/2011 8:17 AM EST) Glucose, POC 171 60 - 199 mg/dL DONNIE DIETZ Comment: Supplemental ranges: <110 mg/dL before meals <200 mg/dL all other times of the day Blood specimen (specimen) 04/14/2011 8:17 AM EST 04/14/2011 8:17 AM EST Randy Padilla MD POINT OF CARE TEST O RDERABLES Performing Organization Address City/[facility] de Phone Number DONNIE DIETZ * [...] MD HEMATOLOGY ORDERABLE S Performing Organization Address [facility] de Phone Number DONNIE DIETZ * LACTIC ACID, PLASMA (04/14/2011 8:00 AM EST) Lactic Acid 1.3 0.5 - 2.2 mmol/L [facility] MILLENNIUM Blood specimen (specimen) 04/14/2011 8:00 AM EST 04/14/2011 8:31 PM EST Randy Padilla MD CHEMISTRY ORDERABLES Performing Organization Address [facility]/[employer] [employer] de Phone Number [facility]ER[facility] HIGGINSENNIUM * [...] Padilla MD CHEMISTRY ORDERABLES Performing Organization Address [facility] Phone Number [facility] * POCT GLUCOSE LAB USE ONLY (04/13/2011 8:22 PM EST) Glucose, POC 167 60 - 199 mg/dL [facility] Comment: Supplemental ranges: <110 mg/dL before meals <200 mg/dL all other times of the day Blood specimen (specimen) 04/13/2011 8:22 PM EST 04/13/2011 8:22 PM EST Randy Padilla MD POINT OF CARE TEST O RDERABLES Performing Organization Address [facility] Phone Number [facility] * POCT GLUCOSE LAB USE ONLY (04/13/2011 5:58 PM EST) Glucose, POC 164 60 - 199 mg/dL [facility] Comment: Supplemental ranges: <110 mg/dL before meals <200 mg/dL all other times of the day Blood specimen (specimen) 04/13/2011 5:58 PM EST 04/13/2011 5:58 PM EST Randy Padilla MD POINT OF CARE TEST O RDERAJAZZY Performing Organization Address [facility] Phone Number [facility] * (ABNORMAL) BLOOD GAS 2 ARTERIAL (04/13/2011 5:53 PM EST) pH, Arterial 7.37 CERNER MILLENNIUM PCO2, Arterial 30(L) mmHg CERNE R MILLENNIUM PO2, Arterial 79(L) mmHg CERNER MILLENNIUM Bicarbonate, Arterial 16.8(L) mmol/L CERNER MILLENNIUM Base Excess, Arterial -8.4(L) mmol/L CERNER MILLENNIUM Hgb Blood Gas 11.5(L) gm/dL [facility] MILLENNIUM Comment: Total Hemoglobin (in gm/dL) ?Based on [facility] Hematology ranges: ?Age ?Reference Range Less than [...] CARE TEST O RDERABLES Performing Organization Address [facility] Phone Number [facility] * Lactic acid, plasma (04/13/2011 5:30 PM EST) Lactic Acid 1.8 0.5 - 2.2 mmol/L [facility] Blood specimen (specimen) 04/13/2011 5:30 PM EST 04/14/2011 7:25 PM EST Randy Padilla MD CHEMISTRY ORDERABLES Performing Organization Address [facility] Phone Number [facility] * POCT GLUCOSE LAB USE ONLY (04/13/2011 1:08 PM EST) Glucose, POC 117 60 - 199 mg/dL [facility] Comment: Supplemental ranges: <110 mg/dL before meals <200 mg/dL all other times of the day Blood specimen (specimen) 04/13/2011 1:08 PM EST 04/13/2011 1:08 PM EST Randy Padilla MD POINT OF CARE TEST O RDERABLES Performing Organization Address [facility] de Phone Number [facility] * (ABNORMAL) BLOOD GAS 2 ARTERIAL (04/13/2011 12:54 PM EST) pH, Arterial 7.40 CERNER MILLENNIUM PCO2, Arterial 28(L) mmHg CERNE R MILLENNIUM PO2, Arterial 89 mmHg CERNER MILLENNIUM Bicarbonate, Arterial 16.9(L) mmol/L CERNER MILLENNIUM Base Excess, Arterial -7.9(L) mmol/L CERNER MILLENNIUM Hgb Blood Gas 10.6(L) gm/dL [facility] MILLENNIUM Comment: Total Hemoglobin (in gm/dL) ?Based on [facility] Hematology ranges: ?Age ?Reference Range Less than [...] CARE TEST O RDERABLES Performing Organization Address [facility] de Phone Number [facility] * Lactic acid, plasma (04/13/2011 12:45 PM EST) Lactic Acid 1.9 0.5 - 2.2 mmol/L [facility] Blood specimen (specimen) 04/13/2011 12:45 PM EST 04/14/2011 7:19 PM EST Randy Padilla MD CHEMISTRY ORDERABLES Performing Organization Address [facility] de Phone Number [facility] * POCT GLUCOSE LAB USE ONLY (04/13/2011 8:37 AM EST) Glucose, POC 128 60 - 199 mg/dL [facility] Comment: Supplemental ranges: <110 mg/dL before meals <200 mg/dL all other times of the day Blood specimen (specimen) 04/13/2011 8:37 AM EST 04/13/2011 8:37 AM EST Randy Padilla MD POINT OF CARE TEST O RDERABLES Performing Organization Address [facility] Phone Number [facility] * (ABNORMAL) BLOOD GAS 2 ARTERIAL (04/13/2011 8:29 AM EST) pH, Arterial 7.38 CERNER MILLENNIUM PCO2, Arterial 28(L) mmHg CERNE R MILLENNIUM PO2, Arterial 78(L) mmHg CERNER MILLENNIUM Bicarbonate, Arterial 15.7(L) mmol/L CERNER MILLENNIUM Base Excess, Arterial -9.5(L) mmol/L CERNER MILLENNIUM Hgb Blood Gas 10.2(L) gm/dL CERNER MILLENNIUM Comment: Total Hemoglobin (in gm/dL) ?Based on [facility] Hematology ranges: ?Age ?Reference Range Less than [...] al) mmol/L CERNER MILLENNIUM Comment: noted by chain mortiser operator Please note: Patients with WBC >100,000 may have falsely elevated Potassium levels. Contact the Clinical Chemistry Laboratory if there are any questions. ICa Whole Blood 0.91(Criti juan manuel) mmol/L CERNER MILLENNIUM Comment: noted by chain mortiser operator Reference Ranges: ?? < 19 yrs: [...] CARE TEST O RDERABLES Performing Organization Address [facility] de Phone Number CERNER MILLENNIUM * (ABNORMAL) Lactic acid, plasma (04/13/2011 5:47 AM EST) Lactic Acid 2.3(H) 0.5 - 2.2 mmol/L CERNER MILLENNIUM Blood specimen (specimen) 04/13/2011 5:47 AM EST 04/13/2011 5:55 AM EST Randy Padilla MD CHEMISTRY ORDERABLES Performing Organization Address [facility] de Phone Number [facility] * (ABNORMAL) BLOOD GAS 2 ARTERIAL (04/13/2011 5:42 AM EST) pH, Arterial 7.36 CERNER MILLENNIUM PCO2, Arterial 36 mmHg CERNE R MILLENNIUM PO2, Arterial 71(L) mmHg CERNER MILLENNIUM Bicarbonate, Arterial 19.9(L) mmol/L CERNER MILLENNIUM Base Excess, Arterial -5.6(L) mmol/L CERNER MILLENNIUM Hgb Blood Gas 12.1(L) gm/dL CERNER MILLENNIUM Comment: Total Hemoglobin (in gm/dL) ?Based on [facility] Hematology ranges: ?Age ?Reference Range Less than [...] Thromboplastin Time 27 25 - 37 sec [facility] MILLENNIUM Comment: Recommended therapeutic PTT range for full dose unfractionated heparin is 80-114 seconds. Blood specimen (specimen) 04/13/2011 4:00 AM EST 04/13/2011 4:10 AM EST Narrative Authorizing Provider Result Telma Fowler MD HEMATOLOGY ORDERABLE S Performing Organization Address [facility] Phone Number [facility] * (ABNORMAL) Prothrombin Time (04/13/2011 4:00 AM EST) Prothrombin Time 14.8(H) 12.3 - 14.7 sec [facility] MILLENNIUM Comment: [facility] Transfusion Committee Guidelines: INR less than 2.0, PTT less than OR equal to 43.5 seconds, or Fibrinogen greater than or equal to 100 mg/dl indicate adequate procoagulant activity for hemostasis in patients without underlying bleeding disorders. International Normalization Ratio 1.1 0.9 - 1.1 [facility] Blood specimen (specimen) 04/13/2011 4:00 AM EST 04/13/2011 4:10 AM EST Narrative Authorizing Provider Result Telma Fowler MD HEMATOLOGY ORDERABLE S Performing Organization Address [facility] Phone Number DONNIE DIETZ * (ABNORMAL) Basic Metabolic Panel (non-fasting) (04/13/2011 4:00 AM EST) Glucose 158 60 - 199 mg/dL [facility] MILLENNIUM Comment:Diabetes: >=200 mg/d L plus symptoms Blood Urea Nitrogen 12 10 - 20 mg/dL [facility] MILLENNIUM Creatinine 1.12 0.80 - 1.50 mg/dL CERNER MILLENNIUM Sodium 139 135 - 145 mmol/L [facility]ILL[facility] Potassium 3.7 3.5 - 5.0 mmol/L [facility] MILL[facility] Comment: Please note: ??Patients with WBC [...] Comment: Total Hemoglobin (in gm/dL) ?Based on [facility] Hematology ranges: ?Age ?Reference Range Less than [...] CARE TEST O RDERABLES Performing Organization Address [facility] Phone Number [facility] * Lactic acid, plasma (04/12/2011 11:55 PM EST) Lactic Acid 1.8 0.5 - 2.2 mmol/L [facility] Comment:result rechecked-llu Blood specimen (specimen) 04/12/2011 11:55 PM EST 04/13/2011 12:04 AM EST Randy Padilla MD CHEMISTRY ORDERABLES Performing Organization Address [facility] Phone Number [facility] * POCT GLUCOSE LAB USE ONLY (04/12/2011 8:41 PM EST) Pathologist [facility] Glucose, POC 129 60 - 199 mg/dL [facility] Comment: Supplemental ranges: <110 mg/dL before meals <200 mg/dL all other times of the day Blood specimen (specimen) 04/12/2011 8:41 PM EST 04/12/2011 8:41 PM EST Randy Padilla MD POINT OF CARE TEST O RDERABLES Performing Organization Address [facility] Phone Number [facility] * (ABNORMAL) BLOOD GAS 2 ARTERIAL (04/12/2011 8:05 PM EST) pH, Arterial 7.37 7.35 - 7.45 CERNER MILLENNIUM PCO2, Arterial 35 35 - 45 mmHg [facility] MILLENNIUM PO2, Arterial 72(L) 85 - 104 mmHg CERNER MILLENNIUM Bicarbonate, Arterial 19.6(L) 20.0 - 26.0 mmol/L CERNER MILLENNIUM Base Excess, Arterial -5.8(L) -3.0 - 3.0 mmol/L [facility] MILLENNIUM Hgb Blood Gas 12.0(L) 13.7 - 17.5 gm/dL [facility] Comment: Total Hemoglobin (in gm/dL) ?Based on [facility] Hematology ranges: ?Age ?Reference Range Less than [...] MD HEMATOLOGY ORDERABLE S Performing Organization Address [facility] [facility] de Phone Number CERNER MILLENNIUM * (ABNORMAL) Lactic acid, plasma (04/12/2011 5:25 PM EST) Lactic Acid 4.5(H) 0.5 - 2.2 mmol/L CERNER MILLENNIUM Blood specimen (specimen) 04/12/2011 5:25 PM EST 04/12/2011 5:40 PM EST Randy Padilla MD CHEMISTRY ORDERABLES Performing Organization Address [facility] de Phone Number CERNER MILLENNIUM [...] Comment: Total Hemoglobin (in gm/dL) ?Based on [facility] Hematology ranges: ?Age ?Reference Range Less than [...] CARE TEST O BHASKAR Performing Organization Address [facility] de Phone Number CERNER MILLENNIUM [...] CARE TEST O KORTNEYERAJAZZY Performing Organization Address [facility] de Phone Number CERNER MILLENNIUM * (ABNORMAL) POCT GLUCOSE LAB USE ONLY (04/12/2011 3:49 PM EST) Glucose, POC 217(H) 60 - 199 mg/dL CERNER MILLENNIUM Comment: Supplemental ranges: <110 mg/dL before meals <200 mg/dL all other times of the day Blood specimen (specimen) 04/12/2011 3:49 PM EST 04/12/2011 3:49 PM EST Randy Padilla MD POINT OF CARE TEST O RDERABLES [facility] * (ABNORMAL) BLOOD GAS ARTERIAL [...] Comment: Total Hemoglobin (in gm/dL) ?Based on [facility] Hematology ranges: ?Age ?Reference Range Less than [...] Padilla MD CHEMISTRY ORDERABLES Performing Organization Address [facility] de Phone Number DONNIE DIETZ * POCT GLUCOSE LAB USE ONLY (04/12/2011 2:57 PM EST) Glucose, POC 198 60 - 199 mg/dL DONNIE HIGGINSENNIUM Comment: Supplemental ranges: <110 mg/dL before meals <200 mg/dL all other times of the day Blood specimen (specimen) 04/12/2011 2:57 PM EST 04/12/2011 2:57 PM EST Randy Padilla MD POINT OF CARE TEST O RDERABLES Performing Organization Address [facility] Phone Number DONNIE DIETZ * KAUR HOLD (04/12/2011 2:55 PM EST) Pathologist [facility] Kaur Hold Sample in lab. [facility] Blood specimen (specimen) 04/12/2011 2:55 PM EST 04/12/2011 3:30 PM EST Randy Padilla MD CHEMISTRY ORDERABLES Performing Organization Address [facility] de Phone Number DONNIE DIETZ * (ABNORMAL) Hepatic Function Panel (04/12/2011 2:55 PM EST) Pathologist [facility] Protein, Total 4.6(L) 6.4 - 8.3 gm/dL [...] Padilla MD CHEMISTRY ORDERABLES Performing Organization Address [facility] de Phone Number [facility] VERNONIUM * (ABNORMAL) Phosphorus (04/12/2011 2:55 PM EST) Phosphorus 4.6(H) 2.5 - 4.5 mg/dL CERNER MILLENNIUM Blood specimen (specimen) 04/12/2011 2:55 PM EST 04/12/2011 3:22 PM EST Randy Padilla MD CHEMISTRY ORDERABLES Performing Organization Address [facility] Phone Number [facility] * (ABNORMAL) Magnesium (04/12/2011 2:55 PM EST) Magnesium 0.54(L) 0.69 - 1.07 mmol/L [facility] Blood specimen (specimen) 04/12/2011 2:55 PM EST 04/12/2011 3:22 PM EST Randy Padilla MD CHEMISTRY ORDERABLES Performing Organization Address [facility] Phone Number [facility] * (ABNORMAL) Prothrombin Time (04/12/2011 2:55 PM EST) Prothrombin Time 15.8(H) 12.3 - 14.7 sec [facility] MILLENNIUM Comment: [facility] Transfusion Committee Guidelines: INR less than 2.0, PTT less than OR equal to 43.5 seconds, or Fibrinogen greater than or equal to 100 mg/dl indicate adequate procoagulant activity for hemostasis in patients without underlying bleeding disorders. International Normalization Ratio 1.2(H) 0.9 - 1.1 [facility] MILLEN[facility] Blood specimen (specimen) 04/12/2011 2:55 PM EST 04/12/2011 3:22 PM EST Randy Padilla MD HEMATOLOGY ORDERABLE S Performing Organization Address [facility] Phone Number [facility] * APTT (04/12/2011 2:55 PM [...] Comment: Total Hemoglobin (in gm/dL) ?Based on [facility] Hematology ranges: ?Age ?Reference Range Less than [...] Comment: Total Hemoglobin (in gm/dL) ?Based on [facility] Hematology ranges: ?Age ?Reference Range Less than [...] CARE TEST O BHASKAR Performing Organization Address City/[facility]/[place] [facility] de Phone Number CERNER MILLENNIUM * [...] Comment: Total Hemoglobin (in gm/dL) ?Based on [facility] Hematology ranges: ?Age ?Reference Range Less than [...] CARE TEST O RDERAJAZZY Performing Organization Address [facility] de Phone Number DONNIE DIETZ * (ABNORMAL) POCT GLUCOSE LAB USE ONLY (04/12/2011 9:53 AM EST) Pathologist [facility] Glucose, POC 286(H) 60 - 199 mg/dL [facility] Comment: Supplemental ranges: <110 mg/dL before meals <200 mg/dL all other times of the day Blood specimen (specimen) 04/12/2011 9:53 AM EST 04/12/2011 9:53 AM EST Randy Padilla MD POINT OF CARE TEST O BHASKAR Performing Organization Address [facility] de Phone Number DONNIE DIETZ * ANTIBODY SCREEN (04/12/2011 8:25 AM EST) Pathologist [facility] Ab Screen Interp Negative DONNIE DIETZ Expires at [phone] on: [id number] DONNIE DIETZ Blood specimen (specimen) 04/12/2011 8:25 AM EST 04/12/2011 8:38 AM EST Erik Gill MD BLOOD BANK LAB ORDER BRIANNE Performing Organization Address [facility] de Phone Number DONNIE DIETZ [...] Gill MD CHEMISTRY ORDERABLES Performing Organization Address City/[facility] de Phone Number DONNIE DIETZ * Lavender Tube HOLD (04/12/2011 8:25 AM EST) Lavender Hold Sample in lab. DONNIE DIETZ Blood specimen (specimen) 04/12/2011 8:25 AM EST 04/12/2011 8:38 AM EST Erik Gill MD HEMATOLOGY ORDERABLE S Performing Organization Address [facility] de Phone Number DONNIE DIETZ * [...] (Bezet) 450 ms MUSE SYSTEM Calculated P Lexa 33 degrees MUSE SYSTEM Calculated R Lexa 50 degrees MUSE SYSTEM Calculated T Lexa 66 degrees MUSE SYSTEM INTERPRETATION Sinus rhythm [...] THOMPSON ?Ordered By: ROBYN FOWLER ? MR#: [id number] ?LOC: ??ICUN ? /Sex: ?? 7 (75 years), ? Male ? PROCEDURE: Urine Culture ?SOURCE: [facility] ? COLLECTED: 04/12/2011 07:26 ? STARTED: 04/12/2011 08:10 ? FINAL REPORT ? Final Report ? Verified: 06:39 ? No growth (Less than 1,000 cfu/ml). ? ____ CERNER MILLENNIUM Urine specimen obtained via straight catheter (specimen) 04/12/2011 7:26 AM EST 04/12/2011 8:10 AM EST Robyn Fowler MD MICROBIOLOGY - GENER AL ORDERABLES Performing Organization Address City/[facility] de Phone Number CERNER MILLENNIUM * [...] Urine Dipstick Clear Clear CERNER MILLENNIUM Specific [place] Urine Automated 1.021 1.002 - 1.030 CERNER MILLENNIUM Color, Urine Dipstick Yellow Yellow CERNER MILLENNIUM RBC, Urine Not Present 0 - 3 CERNER MILLENNIUM WBC, Urine Not Present 0 - 3 CERNER MILLENNIUM Urine specimen (specimen) 04/12/2011 7:25 AM EST 04/12/2011 7:39 AM EST Robyn Fowler MD URINE ORDERABLES Performing Organization Address City/[facility] de Phone Number CERNER MILLENNIUM * [...] 7:15 AM EST) Troponin-T <0.03 <=0.03 ng/mL [facility] Comment: 0.03 ng/mL: Represents the 99th percentile upper reference limit for normals. >0.03 ng/mL: Elevated cardiac troponin T level indicative of myocardial damage. Diagnosis of acute, evolving or recent [place] requires a typical rise and gradual fall [...] consensus document of the Joint Society of Cardiology/[place] College [employer] Committee for the redefinition of myocardial infarction. Journal of the [place] College [employer] 2000; 36: 959-969] Blood specimen (specimen) 04/12/2011 7:15 AM EST 04/12/2011 7:34 AM EST Robyn Fowler MD CHEMISTRY ORDERABLES Performing Organization Address [facility] de Phone Number [facility] * APTT (04/12/2011 7:15 AM EST) Partial Thromboplastin Time 28 25 - 37 sec [facility] Comment: Recommended therapeutic PTT range for full dose unfractionated heparin is 80-114 seconds. Blood specimen (specimen) 04/12/2011 7:15 AM EST 04/12/2011 7:34 AM EST Robyn Fowler MD HEMATOLOGY ORDERABLE S Performing Organization Address [facility] Phone Number [facility] * Prothrombin Time (04/12/2011 7:15 AM EST) Prothrombin Time 13.2 12.3 - 14.7 sec [facility] Comment: [facility] Transfusion Committee Guidelines: INR less than 2.0, PTT less than OR equal to 43.5 seconds, or Fibrinogen greater than or equal to 100 mg/dl indicate adequate procoagulant activity for hemostasis in patients without underlying bleeding disorders. International Normalization Ratio 1.0 0.9 - 1.1 [facility] Blood specimen (specimen) 04/12/2011 7:15 AM EST 04/12/2011 7:34 AM EST Robyn Fowler MD HEMATOLOGY ORDERABLE S Performing Organization Address [facility] de Phone Number [facility] * (ABNORMAL) Glucose, random (04/12/2011 7:15 AM EST) Glucose 299(H) 60 - 199 mg/dL [facility] Comment:Diabetes: >=200 mg/d L plus symptoms Blood specimen (specimen) 04/12/2011 7:15 AM EST 04/12/2011 7:34 AM EST Robyn Fowler MD CHEMISTRY ORDERABLES Performing Organization Address [facility] Phone Number [facility] * Creatinine, serum (04/12/2011 7:15 AM EST) Creatinine 0.98 0.80 - 1.50 mg/dL [facility] Tiny PostENNIUM Est Glomerular Filtration Rate >60 >=60 [facility] MILLENNIUM Comment: The National Kidney Disease [...] Fowler MD CHEMISTRY ORDERABLES Performing Organization Address [facility] de Phone Number CERMARTI JUNIORIUM * BUN (04/12/2011 7:15 AM EST) Blood Urea Nitrogen 14 10 - 20 mg/dL CERNER MILLENNIUM Blood specimen (specimen) 04/12/2011 7:15 AM EST 04/12/2011 7:34 AM EST Robyn Fowler MD CHEMISTRY ORDERABLES Performing Organization Address [facility] de Phone Number [facility] * Electrolytes panel (04/12/2011 7:15 AM EST) [...] Fowler MD CHEMISTRY ORDERABLES Performing Organization Address City/[facility] de Phone Number DONNIE DIETZ * [...] MD HEMATOLOGY ORDERABLE S Performing Organization Address [facility] de Phone Number DONNIE DIETZ documented [...] Vishnu Mckoy RN)[phone] (Given - Provider: Vishnu Mkcoy RN) [phone] (Given - Provider: Vishnu Mckoy [...] Routine documented in this encounter Care Teams Railway Head Tender Relationship Specialty Start Date End Date Arely Vickers MD PCP - General 04/12/11 09/15/16 documented as of this encounter
--- OUTSIDE RECORDS SUMMARY | 2023-12-24 06:55 | XMS_ITS | Encounter Summary ---
Author Organization Formerly [facility] Address [facility] [place] [address] Care Team Providers Care Hvac Sales Representative Name Role Phone Arely Vickers MD Primary Care Provider [phone] Reason for Visit * Reason Comments Abdominal Pain Encounter Details Date Type Department Care Team (Latest Contact Info) Description 04/12/2011 7:04 AM EST - 04/16/2011 1:05 PM [facility] Hospital Encounter [address] [place] [address] Robyn Fowler MD [facility] [address] [place] [address] Randy Padilla MD [facility] [place] [address] Steven Borges MD [facility] [place] [address] AAA (abdominal aortic aneurysm) Discharge Disposition: Home [...] For any problems or questions please call [phone] Angela Mujica RN Vascular Nurse Clinician Loretta [...] yesterday. Will replete K again today. ID: [facility] trending down - patient on Vanc/zosyn for superimposed diverticulitis. Will start PO cipro/flagyl and have him continue for 7 more days. Dispo: Home today. * Christopher Barnes RN - 04/15/2011 4:05 PM EST Patient received from [facility] to [facility] in stable condition. 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; no prior services or DME SAW FEEDER REFERRAL:n/a SAW FEEDER - Support/Financial/Medication Assistance; See SAW FEEDER notes for further needs. PRIMARY CARE PHYSICIAN: ARELY VICKERS MD [facility] [address] / [facility] [address] POTENTIAL DISCHARGE NEEDS: None anticipated; states can monitor his BP at home PATIENT/FAMILY EDUCATION NEEDS:per discharge summary ANTICIPATED BARRIERS TO DISCHARGE:none TRANSPORTATION @ D/C:radha Willard PLAN: Vascular CRC will continue to monitor progress, follow for continuity of care and assist withdischarge planning while hospitalized * Abhi Dukes, PharmD - 04/14/2011 2:08 PM EST Clinical Pharmacist Note-Vanc Cali Thompson [id number] 1935 Cali Thompson is a 75 y.o. [...] have. Alternately, during off-hours you may call [phone] to contact a pharmacist. ABHI DUKES, JONELLE [...] : UOP adequate, lytes/Cr acceptable, HLIV ID: [facility] up a bit today - patient Vanc/zosyn for superimposed diverticulitis Dispo: Up out of bed today. Will transfer to [facility] today * Estela Flores RCP - 04/13/2011 5:06 PM EST Patient found on noted settings. SBT done and patient passed and was extubated to 4 lpm NC with no complications. YA * Poli Chowdhury MD - 04/13/2011 3:01 PM EST Cali Thompson [id number] 04/13/2011 04/12/2011 7:04 AM Critical Care Medicine [...] Q12H ??? DISCONTD: ceFAZolin 2 g Intravenous Planning Technician to OR ??? DISCONTD: vancomycin 1 g Intravenous Q12H No Known Allergies EXAM: Temp: [35.7 ??C (96.3 ??F)-37.2 ??C (99 ??F)] Heart Rate: [47-80] Resp: [10-19] BP: (104)/(61) SpO2: [91 %-98 %] I/O last 3 completed shifts: In: 86012 [I.V.:96067] Out: 2300 [Urine:1700; Blood:600] I/O this shift: [...] 97 % SpO2: [91 %-98 %] SIMV/PS 005m12-63 PEEP 5 FiO2 40% Last ABG 7.36/35/70/19 Intake/Output Summary (Last 24 hours) at 04/13/11 1155 Last data filed at 04/13/11 1000 Gross per 24 hour Intake 48354 ml Output 2775 ml Net 9784 ml [...] PM EST Clinical Pharmacist Note-Vanc Cali Thompson [id number] 1935 Cali Thompson is a 75 y.o. [...] have. Alternately, during off-hours you may call [phone] to contact a pharmacist. JIA VICTORIA PHARMD Pager [phone] * Chris Johnson - 04/12/2011 8:28 PM [...] at 04/12/111945 Gross per 24 hour Intake 55581 ml Output 1755 ml Net 8949 ml [...] Gill MD - 04/12/2011 8:08 AM EST [facility] staff procedure note: Under sterile cond RIGHT radial a-line placed for hemodynamic monitoring. Hand intact, excellent waveform. documented in this encounter H&P Notes * Poli Chowdhury MD - 04/12/2011 8:22 AM EST Cali Thompson [id number] 04/12/2011 04/12/2011 7:04 AM Critical Care Medicine [...] Once ??? DISCONTD: ceFAZolin 2 g Intravenous Planning Technician to OR No Known Allergies EXAM: Temp: [...] prior known history of AAA, presents to [facility] with c/o abdominal pain for 12hours. [...] urgently once medically optimized, [facility]: I saw and evaluated Mr. Thompson [...] 04/17/2011 11:15 AM ESTAssociated Order(s): SCAN DOC: MILITARY COMMUNICATIONS SPECIALIST documented in this encounter ED Notes * [...] with current pain regimen. Encouraged to notify hotel staff member when inneed of pain medication. Continue to [...] Joan Vail - 04/12/2011 4:41 PM EST [facility] Operative Note Patient Name: Cali Thompson : [id number] MR#: [id number] Case Date: 04/12/2011 Surgeon: Surgeon(s) and Role: * STEVEN BORGES MD - Primary * JOAN VAIL MD - Fellow Preoperative diagnosis: symptomatic infrarenal aortic aneurysm Postoperative diagnosis: same Procedure(s): Bilateral femoral arterial exposures Endovascular repair of aortic aneurysm, using Butlrith Flex [id number]-[id number] via right; ipsilateralextension with TFLE 16-56; contralateral [...] point on the right we advanced a Ubitexx device type [id number], and this was advanced up to the [...] the delivery system was removed, and a 12-Taiwanese Rowley dry seal was advanced. On the right [...] removed the delivery system and advanced a 20-Taiwanese Rowley dry seal up the right side. We [...] Operative Note Patient Name: Cali Thompson : [id number] MR#: [id number] Case Date: 04/12/2011 Surgeon: Surgeon(s) and Role: * STEVEN BORGES MD - Primary * JOAN VAIL MD - Fellow Preoperative diagnosis: symptomatic infrarenal aortic aneurysm Postoperative diagnosis: same Procedure(s): Bilateral femoral arterial exposures Endovascular repair of aortic aneurysm, using Ubitexx Flex [id number] via right; ipsilateralextension with TFLE 16-56; contralateral [...] exposures Endovascular repair of aortic aneurysm, using Ubitexx Flex [id number] via right; ipsilateralextension with TFLE 16-56; contralateral extension with TFLE 16-73 History of Presentation: 75 year old male without prior known history of AAA, presented to [facility] with complaints of abdominal pain for [...] For any problems or questions please call [phone] Angela Mujica RN Vascular Nurse Clinician Loretta Matthews RN Vascular Nurse Clinician Future Appointments and Orders Future Orders Please Complete By Expires CT abdomen & pelvis with contrast [[id number] Custom] 05/13/11 04/12/12 Process Instructions: Scheduling Instructions: [...] as a transfer from [facility] vascular with a dx of [...] bedside upon pt arrival. Pt placed on structural mill supervisor, labs obtained and sent. Pt c/o having [...] 1:30 PM EDT Laboratory Appointment Lab [address] [place] [address] 01/02/2024 3:00 PM EDT Office Visit Nephrology [place] [address] Adam Costa MD [facility] [place] [address] documented as of this encounter Procedures Procedure [...] IMPLANTABLE DEVICES SCAN 04/17/2011 11:15 AM EST MILITARY COMMUNICATIONS SPECIALIST SCAN 04/17/2011 11:15 AM EST POCT GLUCOSE [...] SCAN EXT O RDR/RSLT * SCAN DOC: MILITARY COMMUNICATIONS SPECIALIST (04/17/2011 11:15 AM EST) Anatomical Region Laterality Modality Other Narrative 04/17/2011 3:20 PM EST Procedure Note Provider, Scanning - 04/17/2011 11:15 AM EST Scanning Provider MEDIA MGR SCAN EXT O RDR/RSLT * (ABNORMAL) POCT GLUCOSE LAB USE ONLY (04/16/2011 10:58 AM EST) Glucose, POC 257(H) 60 - 199 mg/dL [facility] [employer] Comment: Supplemental ranges: <110 mg/dL before meals <200 mg/dL all other times of the day Blood specimen (specimen) 04/16/2011 10:58 AM EST 04/16/2011 10:58 AM EST Randy Padilla MD POINT OF CARE TEST O BHASKAR Performing Organization Address [facility] Co de Phone Number [facility] * POCT GLUCOSE LAB USE ONLY (04/16/2011 7:21 AM EST) Glucose, POC 181 60 - 199 mg/dL [facility] Comment: Supplemental ranges: <110 mg/dL before [...] MD CHEMISTRY ORDERABLES Performing Organization Address [facility] Co de Phone Number CERMARTI [...] CARE TEST O BHASKAR Performing Organization Address [facility] de Phone Number [facility] * POCT GLUCOSE LAB USE ONLY (04/15/2011 4:07 PM EST) Glucose, POC 162 60 - 199 mg/dL [facility] Comment: Supplemental ranges: <110 mg/dL before meals <200 mg/dL all other times of the day Blood specimen (specimen) 04/15/2011 4:07 PM EST 04/15/2011 4:07 PM EST Randy Padilla MD POINT OF CARE TEST O BHASKAR Performing Organization Address [facility] Co de Phone Number [facility] * POCT GLUCOSE LAB USE ONLY (04/15/2011 12:46 PM EST) Glucose, POC 157 60 - 199 mg/dL [facility] Comment: Supplemental ranges: <110 mg/dL before meals <200 mg/dL all other times of the day Blood specimen (specimen) 04/15/2011 12:46 PM EST 04/15/2011 12:46 PM EST Randy Padilla MD POINT OF CARE TEST O BHASKAR Performing Organization Address [facility] Co de Phone Number [facility] * POCT GLUCOSE LAB USE ONLY (04/15/2011 8:34 AM EST) Glucose, POC 173 60 - 199 mg/dL [facility] Comment: Supplemental ranges: <110 mg/dL before meals [...] EST Randy Padilla MD HEMATOLOGY ORDERABLE S [facility] MILLENNIUM * (ABNORMAL) Basic Metabolic Panel (non-fasting) (04/15/2011 6:05 AM EST) Pathologist [facility] Glucose 160 60 - 199 mg/dL CERNER [...] MD CHEMISTRY ORDERABLES Performing Organization Address [facility] Phone Number [facility] [employer] * POCT GLUCOSE LAB USE ONLY (04/14/2011 8:46 PM EST) Glucose, POC 156 60 - 199 mg/dL [facility] Comment: Supplemental ranges: <110 mg/dL before meals <200 mg/dL all other times of the day Blood specimen (specimen) 04/14/2011 8:46 PM EST 04/14/2011 8:46 PM EST Randy Padilla MD POINT OF CARE TEST O RDERABLES Performing Organization Address [facility] Phone Number [facility] * POCT GLUCOSE LAB USE ONLY (04/14/2011 5:36 PM EST) Glucose, POC 159 60 - 199 mg/dL [facility] Comment: Supplemental ranges: <110 mg/dL before meals <200 mg/dL all other times of the day Blood specimen (specimen) 04/14/2011 5:36 PM EST 04/14/2011 5:36 PM EST Randy Padilla MD POINT OF CARE TEST O RDERABLES Performing Organization Address [facility] Phone Number [facility] [employer] * (ABNORMAL) POCT GLUCOSE LAB USE ONLY (04/14/2011 1:31 PM EST) Glucose, POC 201(H) 60 - 199 mg/dL [facility] Comment: Supplemental ranges: <110 mg/dL before meals <200 mg/dL all other times of the day Blood specimen (specimen) 04/14/2011 1:31 PM EST 04/14/2011 1:31 PM EST Randy Padilla MD POINT OF CARE TEST O RDERABLES Performing Organization Address [facility] Number [facility] * VANCOMYCIN, TROUGH (04/14/2011 10:30 AM EST) Vancomycin, Trough 14.2 mg/L Anna [facility] Comment: Therapeutic range for complicated infections such [...] Padilla MD CHEMISTRY ORDERABLES Performing Organization Address [facility] Phone Number [facility] * POCT GLUCOSE LAB USE ONLY (04/14/2011 8:17 AM EST) Glucose, POC 171 60 - 199 mg/dL [facility] Comment: Supplemental ranges: <110 mg/dL before meals <200 mg/dL all other times of the day Blood specimen (specimen) 04/14/2011 8:17 AM EST 04/14/2011 8:17 AM EST Randy Padilla MD POINT OF CARE TEST O RDERABLES Performing Organization Address [facility] Phone Number [facility] * (ABNORMAL) DIFFERENTIAL, AUTOMATED (04/14/2011 8:00 AM EST) Neutrophil % 78.6(H) 34.0 - 71.0 % [facility] Neutrophil Absolute 14.46(H) 1.50 - 6.30 x10(3)/mc [...] MD HEMATOLOGY ORDERABLE S Performing Organization Address [facility] Co de Phone Number CERMARTI MILLENNIUM * LACTIC ACID, PLASMA (04/14/2011 8:00 AM EST) Lactic Acid 1.3 0.5 - 2.2 mmol/L CERN[facility] MILLENNIUM Blood specimen (specimen) 04/14/2011 8:00 AM EST 04/14/2011 8:31 PM EST Randy Padilla MD CHEMISTRY ORDERABLES Performing Organization Address [facility] Co de Phone Number CERMARTI [...] EST Randy Padilla MD HEMATOLOGY ORDERABLE S [facility] G[facility]ELA[facility] * (ABNORMAL) BASIC METABOLIC PANEL (NON-FASTING) [...] EST) Potassium 3.4(L) 3.5 - 5.0 mmol/L [facility] Comment: Please note: ??Patients with WBC >100,000 may have falsely elevated Potassium levels. ??For accurate Potassium quantification in these patients send serum separator tube (gold top) for subsequent determinations. ??Contact the Clinical Chemistry Laboratory if there are any questions. Blood specimen (specimen) 04/13/2011 9:47 PM EST 04/14/2011 7:16 PM EST Randy Padilla MD CHEMISTRY ORDERABLES Performing Organization Address [facility] Phone Number [facility] * POCT GLUCOSE LAB USE ONLY (04/13/2011 8:22 PM EST) Glucose, POC 167 60 - 199 mg/dL [facility] Comment: Supplemental ranges: <110 mg/dL before meals <200 mg/dL all other times of the day Blood specimen (specimen) 04/13/2011 8:22 PM EST 04/13/2011 8:22 PM EST Randy Padilla MD POINT OF CARE TEST O RDJACKIE Performing Organization Address [facility] Phone Number [facility] * POCT GLUCOSE LAB USE ONLY (04/13/2011 5:58 PM EST) Glucose, POC 164 60 - 199 mg/dL [facility] Comment: Supplemental ranges: <110 mg/dL before meals <200 mg/dL all other times of the day Blood specimen (specimen) 04/13/2011 5:58 PM EST 04/13/2011 5:58 PM EST Randy Padilla MD POINT OF CARE TEST O RDERAJAZZY Performing Organization Address [facility] Phone Number [facility] * (ABNORMAL) BLOOD GAS 2 ARTERIAL (04/13/2011 5:53 PM EST) pH, Arterial 7.37 [facility] PCO2, Arterial 30(L) mmHg CERNE R MILLENNIUM PO2, Arterial 79(L) mmHg CERNER MILLENNIUM Bicarbonate, Arterial 16.8(L) mmol/L CERNER MILLENNIUM Base Excess, Arterial -8.4(L) mmol/L [facility] MILLENNIUM Hgb Blood Gas 11.5(L) gm/dL C[facility] MILLENNIUM Comment: Total Hemoglobin (in gm/dL) ?Based on [facility] Hematology ranges: ?Age ?Reference Range Less than [...] CL Whole Blood 117(H) mmol/L [facility] Gluc Whole Bld 140 mg/dL [facility] Comment:Diabetes: >=200 mg/d L plus symptoms. Flow Art 4.0 LPM [facility] Blood specimen (specimen) 04/13/2011 5:53 PM EST 04/13/2011 5:53 PM EST Randy Padilla MD POINT OF CARE TEST O RDERAJAZZY Performing Organization Address [facility] Phone Number [facility] * Lactic acid, plasma (04/13/2011 5:30 PM EST) Lactic Acid 1.8 0.5 - 2.2 mmol/L [facility] Blood specimen (specimen) 04/13/2011 5:30 PM EST 04/14/2011 7:25 PM EST Randy Padilla MD CHEMISTRY ORDERABLES Performing Organization Address [facility] Phone Number [facility] * POCT GLUCOSE LAB USE ONLY (04/13/2011 1:08 PM EST) Glucose, POC 117 60 - 199 mg/dL [facility] Comment: Supplemental ranges: <110 mg/dL before meals <200 mg/dL all other times of the day Blood specimen (specimen) 04/13/2011 1:08 PM EST 04/13/2011 1:08 PM EST Randy Padilla MD POINT OF CARE TEST O RDERABLES Performing Organization Address [facility] Phone Number [facility] * (ABNORMAL) BLOOD GAS 2 ARTERIAL (04/13/2011 12:54 PM EST) pH, Arterial 7.40 CERNER MILLENNIUM PCO2, Arterial 28(L) mmHg CERNE R MILLENNIUM PO2, Arterial 89 mmHg CERNER MILLENNIUM Bicarbonate, Arterial 16.9(L) mmol/L CERNER MILLENNIUM Base Excess, Arterial -7.9(L) mmol/L CERNER MILLENNIUM Hgb Blood Gas 10.6(L) gm/dL CERNER MILLENNIUM Comment: Total Hemoglobin (in gm/dL) ?Based on [facility] Hematology ranges: ?Age ?Reference Range Less than [...] al) mmol/L CERNER MILLENNIUM Comment: Noted by aircraft instrument mechanic. Please note: Patients with WBC >100,000 may [...] CARE TEST O RDERAJAZZY Performing Organization Address [facility] de Phone Number [facility] * Lactic acid, plasma (04/13/2011 12:45 PM EST) Lactic Acid 1.9 0.5 - 2.2 mmol/L [facility] MILLENNIUM Blood specimen (specimen) 04/13/2011 12:45 PM EST 04/14/2011 7:19 PM EST Randy Padilla MD CHEMISTRY ORDERABLES Performing Organization Address [facility] de Phone Number [facility] * POCT GLUCOSE LAB USE ONLY (04/13/2011 8:37 AM EST) Glucose, POC 128 60 - 199 mg/dL [facility] MILLENNIUM Comment: Supplemental ranges: <110 mg/dL before meals <200 mg/dL all other times of the day Blood specimen (specimen) 04/13/2011 8:37 AM EST 04/13/2011 8:37 AM EST Randy Padilla MD POINT OF CARE TEST O RDERABLES Performing Organization Address [facility] Co de Phone Number [facility] * (ABNORMAL) BLOOD GAS 2 ARTERIAL (04/13/2011 8:29 AM EST) pH, Arterial 7.38 CERNER MILLENNIUM PCO2, Arterial 28(L) mmHg CERNE R MILLENNIUM PO2, Arterial 78(L) mmHg CERNER MILLENNIUM Bicarbonate, Arterial 15.7(L) mmol/L CERNER MILLENNIUM Base Excess, Arterial -9.5(L) mmol/L CERNER MILLENNIUM Hgb Blood Gas 10.2(L) gm/dL CERNER MILLENNIUM Comment: Total Hemoglobin (in gm/dL) ?Based on [facility] Hematology ranges: ?Age ?Reference Range Less than [...] al) mmol/L CERNER MILLENNIUM Comment: noted by print line operator Please note: Patients with WBC >100,000 may have falsely elevated Potassium levels. Contact the Clinical Chemistry Laboratory if there are any questions. ICa Whole Blood 0.91(Criti juan manuel) mmol/L CERNER MILLENNIUM Comment: noted by print line operator Reference Ranges: ?? < 19 yrs: [...] CARE TEST O RDERABLES Performing Organization Address [facility] de Phone Number CERNER MILLENNIUM * (ABNORMAL) Lactic acid, plasma (04/13/2011 5:47 AM EST) Lactic Acid 2.3(H) 0.5 - 2.2 mmol/L CERN[facility] MILLENNIUM Blood specimen (specimen) 04/13/2011 5:47 AM EST 04/13/2011 5:55 AM EST Randy Padilla MD CHEMISTRY ORDERABLES Performing Organization Address [facility] Co de Phone Number CERNER MILLENNIUM * (ABNORMAL) BLOOD GAS 2 ARTERIAL (04/13/2011 5:42 AM EST) pH, Arterial 7.36 CERNER MILLENNIUM PCO2, Arterial 36 mmHg CERNE R MILLENNIUM PO2, Arterial 71(L) mmHg CERNER MILLENNIUM Bicarbonate, Arterial 19.9(L) mmol/L CERNER MILLENNIUM Base Excess, Arterial -5.6(L) mmol/L CERNER MILLENNIUM Hgb Blood Gas 12.1(L) gm/dL CERNER MILLENNIUM Comment: Total Hemoglobin (in gm/dL) ?Based on [facility] Hematology ranges: ?Age ?Reference Range Less than [...] MD HEMATOLOGY ORDERABLE S Performing Organization Address [facility] Phone Number DONNIE JUNIORIUM * APTT (04/13/2011 4:00 AM EST) Partial Thromboplastin Time 27 25 - 37 sec DONNIE MILLENNIUM Comment: Recommended therapeutic PTT range for full dose unfractionated heparin is 80-114 seconds. Blood specimen (specimen) 04/13/2011 4:00 AM EST 04/13/2011 4:10 AM EST Robyn Fowler MD HEMATOLOGY ORDERABLE S Performing Organization Address [facility] Phone Number DONNIE DIETZ * (ABNORMAL) Prothrombin Time (04/13/2011 4:00 AM EST) Prothrombin Time 14.8(H) 12.3 - 14.7 sec [facility] Comment: [facility] Transfusion Committee Guidelines: INR less than [...] MD HEMATOLOGY ORDERABLE S Performing Organization Address [facility] Phone Number DONNIE DIETZ * (ABNORMAL) Basic Metabolic Panel (non-fasting) (04/13/2011 4:00 AM EST) Glucose 158 60 - 199 mg/dL [facility] MILLENNIUM Comment:Diabetes: >=200 mg/d L plus symptoms [...] Fowler MD CHEMISTRY ORDERABLES Performing Organization Address [facility] Co de Phone Number DONNIE [...] MD HEMATOLOGY ORDERABLE S Performing Organization Address [facility] de Phone Number DONNIE [...] Comment: Total Hemoglobin (in gm/dL) ?Based on [facility] Hematology ranges: ?Age ?Reference Range Less than [...] CARE TEST O RDERABLES Performing Organization Address [facility] Phone Number [facility] * Lactic acid, plasma (04/12/2011 11:55 PM EST) Lactic Acid 1.8 0.5 - 2.2 mmol/L [facility] Comment:result rechecked-llu Blood specimen (specimen) 04/12/2011 11:55 PM EST 04/13/2011 12:04 AM EST Randy Padilla MD CHEMISTRY ORDERABLES Performing Organization Address [facility] Phone Number [facility] * POCT GLUCOSE LAB USE ONLY (04/12/2011 8:41 PM EST) Glucose, POC 129 60 - 199 mg/dL [facility] Comment: Supplemental ranges: <110 mg/dL before meals <200 mg/dL all other times of the day Blood specimen (specimen) 04/12/2011 8:41 PM EST 04/12/2011 8:41 PM EST Randy Padilla MD POINT OF CARE TEST O RDERAJAZZY Performing Organization Address [facility] Phone Number [facility] * (ABNORMAL) BLOOD GAS 2 ARTERIAL (04/12/2011 8:05 PM EST) pH, Arterial 7.37 7.35 - 7.45 [facility] PCO2, Arterial 35 35 - 45 mmHg [facility] PO2, Arterial 72(L) 85 - 104 mmHg [facility] Bicarbonate, Arterial 19.6(L) 20.0 - 26.0 mmol/L CERNER MILLENNIUM Base Excess, Arterial -5.8(L) -3.0 - 3.0 mmol/L CERNER MILLENNIUM Hgb Blood Gas 12.0(L) 13.7 - 17.5 gm/dL CERNER MILLENNIUM Comment: Total Hemoglobin (in gm/dL) ?Based on [facility] Hematology ranges: ?Age ?Reference Range Less than [...] MD HEMATOLOGY ORDERABLE S Performing Organization Address [facility] Co de Phone Number CERNER MILLENNIUM * (ABNORMAL) Lactic acid, plasma (04/12/2011 5:25 PM EST) Lactic Acid 4.5(H) 0.5 - 2.2 mmol/L CERNER MILLENNIUM Blood specimen (specimen) 04/12/2011 5:25 PM EST 04/12/2011 5:40 PM EST Randy Padilla MD CHEMISTRY ORDERABLES Performing Organization Address [facility] Co de Phone Number CERNER [...] 7.29(Criti juan manuel) CERNER MILLENNIUM Comment:Noted by aircraft instrument mechanic. PCO2, Arterial 41 mmHg CERNE R MILLENNIUM PO2, Arterial 74(L) mmHg CERNER MILLENNIUM Bicarbonate, Arterial 19.6(L) mmol/L CERNER MILLENNIUM Base Excess, Arterial -6.9(L) mmol/L CERNER MILLENNIUM Hgb Blood Gas 13.0(L) gm/dL CERNER MILLENNIUM Comment: Total Hemoglobin (in gm/dL) ?Based on [facility] Hematology ranges: ?Age ?Reference Range Less than [...] MD POINT OF CARE TEST O BHASKAR [facility] * (ABNORMAL) POCT GLUCOSE LAB USE ONLY (04/12/2011 3:49 PM EST) Glucose, POC 217(H) 60 - 199 mg/dL [facility] Comment: Supplemental ranges: <110 mg/dL before meals <200 mg/dL all other times of the day Blood specimen (specimen) 04/12/2011 3:49 PM EST 04/12/2011 3:49 PM EST Randy Padilla MD POINT OF CARE TEST O BHASKAR Performing Organization Address [facility] Co de Phone Number [facility] * (ABNORMAL) BLOOD GAS ARTERIAL (04/12/2011 [...] Comment: Total Hemoglobin (in gm/dL) ?Based on [facility] Hematology ranges: ?Age ?Reference Range Less than [...] MD CHEMISTRY ORDERABLES Performing Organization Address [facility] Phone Number DONNIE JUNIORIUM * POCT GLUCOSE LAB USE ONLY (04/12/2011 2:57 PM EST) Glucose, POC 198 60 - 199 mg/dL [facility] Comment: Supplemental ranges: <110 mg/dL before meals <200 mg/dL all other times of the day Blood specimen (specimen) 04/12/2011 2:57 PM EST 04/12/2011 2:57 PM EST Randy Padilla MD POINT OF CARE TEST O RDERABLES Performing Organization Address [facility] Phone Number DONNIE HIGGINSENNIUM * KAUR HOLD (04/12/2011 2:55 PM EST) Kaur Hold Sample in lab. DONNIE HIGGINSENNIUM Blood specimen (specimen) 04/12/2011 2:55 PM EST 04/12/2011 3:30 PM EST Randy Padilla MD CHEMISTRY ORDERABLES Performing Organization Address [facility] Phone Number DONNIE HIGGINSENNIUM * (ABNORMAL) Hepatic Function Panel (04/12/2011 2:55 PM EST) Protein, Total 4.6(L) 6.4 - 8.3 gm/dL CERNER MILLENNIUM Albumin 2.7(L) 3.2 - 5.2 gm/dL CERNER MILLENNIUM Aspartate Aminotransferase 28 0 - 39 unit/L CERNER MILLENNIUM Alanine Aminotransferase 42 0 - 55 unit/L CERNER MILLENNIUM Alkaline Phosphatase 62 40 - 120 unit/L [facility] Bilirubin, Total 0.3 0.2 - 1.3 mg/dL CERNER MILLENNIUM Bilirubin, Direct 0.1 0.0 - 0.3 mg/dL CERNER MILLENNIUM Blood specimen (specimen) 04/12/2011 2:55 PM EST 04/12/2011 3:22 PM EST Randy Padilla MD CHEMISTRY ORDERABLES Performing Organization Address [facility] Phone Number DONNIE JUNIORIUM * (ABNORMAL) Phosphorus (04/12/2011 2:55 PM EST) Phosphorus 4.6(H) 2.5 - 4.5 mg/dL DONNIE JUNIORIUM Blood specimen (specimen) 04/12/2011 2:55 PM EST 04/12/2011 3:22 PM EST Randy Padilla MD CHEMISTRY ORDERABLES Performing Organization Address [facility] [place] Phone Number [facility] * (ABNORMAL) Magnesium (04/12/2011 2:55 PM EST) Magnesium 0.54(L) 0.69 - 1.07 mmol/L DONNIE JUNIORIUM Blood specimen (specimen) 04/12/2011 2:55 PM EST 04/12/2011 3:22 PM EST Randy Padilla MD CHEMISTRY ORDERABLES Performing Organization Address [facility] Phone Number DONNIE DIETZ * (ABNORMAL) Prothrombin Time (04/12/2011 2:55 PM EST) Prothrombin Time 15.8(H) 12.3 - 14.7 sec [facility] Comment: [facility] Transfusion Committee Guidelines: INR less than [...] MD HEMATOLOGY ORDERABLE S Performing Organization Address City/[facility]/ZIP Co de Phone Number DONNIE HIGGINSINFOGRAPHIQSIUM * APTT (04/12/2011 2:55 PM EST) Partial Thromboplastin Time 32 25 - 37 sec CERNER MILLENNIUM Comment: Recommended therapeutic PTT range for full dose unfractionated heparin is 80-114 seconds. Blood specimen (specimen) 04/12/2011 2:55 PM EST 04/12/2011 3:22 PM EST Randy Padilla MD HEMATOLOGY ORDERABLE S Performing Organization Address [facility] Co de Phone Number DONNIE [...] PM EST Randy Padilla MD CHEMISTRY ORDERABLES [facility] * (ABNORMAL) BLOOD GAS 2 ARTERIAL (04/12/2011 2:06 PM EST) pH, Arterial 7.21(Criti juan manuel) CERNER MILLENNIUM Comment:Noted by aircraft instrument mechanic. PCO2, Arterial 41 mmHg CERNE R MILLENNIUM PO2, Arterial 73(L) mmHg CERNER MILLENNIUM Bicarbonate, Arterial 16.1(L) mmol/L CERNER MILLENNIUM Base Excess, Arterial -11.7(L) mmol/L CERNER MILLENNIUM Hgb Blood Gas 12.4(L) gm/dL CERNER MILLENNIUM Comment: Total Hemoglobin (in gm/dL) ?Based on [facility] Hematology ranges: ?Age ?Reference Range Less than [...] 7.20(Criti juan manuel) CERNER MILLENNIUM Comment:Noted by aircraft instrument mechanic. PCO2, Arterial 48(H) mmHg CERNE R MILLENNIUM PO2, Arterial 109(H) mmHg CERNER MILLENNIUM Bicarbonate, Arterial 18.5(L) mmol/L CERNER MILLENNIUM Base Excess, Arterial -9.5(L) mmol/L CERNER MILLENNIUM Hgb Blood Gas 13.0(L) gm/dL CERNER MILLENNIUM Comment: Total Hemoglobin (in gm/dL) ?Based on [facility] Hematology ranges: ?Age ?Reference Range Less than [...] MD POINT OF CARE TEST O BHASKAR [facility] * (ABNORMAL) POCT GLUCOSE LAB USE ONLY (04/12/2011 12:34 PM EST) Glucose, POC 207(H) 60 - 199 mg/dL CERNER MILLENNIUM Comment: Supplemental ranges: <110 mg/dL before meals <200 mg/dL all other times of the day Blood specimen (specimen) 04/12/2011 12:34 PM EST 04/12/2011 12:34 PM EST Randy Padilla MD POINT OF CARE TEST O BHASKAR [facility] [employer] * (ABNORMAL) BLOOD GAS 2 ARTERIAL (04/12/2011 11:27 AM EST) pH, Arterial 7.38 CERNER MILLENNIUM PCO2, Arterial 35 mmHg CERNE R MILLENNIUM PO2, Arterial 96 mmHg CERNER MILLENNIUM Bicarbonate, Arterial 20.6 mmol/L CERNER MILLENNIUM Base Excess, Arterial -4.5(L) mmol/L CERNER MILLENNIUM Hgb Blood Gas 15.2 gm/dL CERNER MILLENNIUM Comment: Total Hemoglobin (in gm/dL) ?Based on [facility] Hematology ranges: ?Age ?Reference Range Less than [...] CARE TEST O RDERAJAZZY Performing Organization Address [facility] de Phone Number CERMARTI HIGGINSENNIUM [...] CARE TEST O RDERAJAZZY Performing Organization Address [facility] de Phone Number DONNIE JUNIORIUM * ANTIBODY SCREEN (04/12/2011 8:25 AM EST) Ab Screen Interp Negative CERNER MILLENNIUM Expires at [id number] on: [id number] CERNER MILLENNIUM Blood specimen (specimen) 04/12/2011 8:25 AM EST 04/12/2011 8:38 AM EST Erik Gill MD BLOOD BANK LAB ORDER BRIANNE Performing Organization Address [facility] de Phone Number DONNIE JUNIORIUM * ABO/RH TYPING (04/12/2011 8:25 AM EST) ABORH Type O Pos DONNIE DIETZ Blood specimen (specimen) 04/12/2011 8:25 AM EST 04/12/2011 8:38 AM EST Erik Gill MD BLOOD BANK LAB ORDER BRIANNE Performing Organization Address [facility] de Phone Number DONNIE DIETZ * Green Tube HOLD (04/12/2011 8:25 AM EST) Green Hold Sample in lab. DONNIE DIETZ Blood specimen (specimen) 04/12/2011 8:25 AM EST 04/12/2011 8:38 AM EST Erik Gill MD CHEMISTRY ORDERABLES Performing Organization Address [facility] de Phone Number DONNIE DIETZ * Lavender Tube HOLD (04/12/2011 8:25 AM EST) Lavender Hold Sample in lab. DONNIE DIETZ Blood specimen (specimen) 04/12/2011 8:25 AM EST 04/12/2011 8:38 AM EST Erik Gill MD HEMATOLOGY ORDERABLE S Performing Organization Address [facility] Phone Number DONNIE DIETZ * XR CHEST [...] (Bezet) 450 ms MUSE SYSTEM Calculated P [place] 33 degrees MUSE SYSTEM Calculated R [place] 50 degrees MUSE SYSTEM Calculated T [place] 66 degrees MUSE SYSTEM INTERPRETATION Sinus rhythm [...] THOMPSON ?Ordered By: ROBYN FOWLER ? MR#: [id number] ?LOC: ??ICUN ? /Sex: ?? 7 (75 years), ? Male ? PROCEDURE: Urine Culture ?[facility] ? COLLECTED: 04/12/2011 07:26 ? STARTED: 04/12/2011 08:10 ? FINAL REPORT ? Final Report ? Verified: 06:39 ? No growth (Less than 1,000 cfu/ml). ? ____ CERNER MILLENNIUM Urine specimen obtained via straight catheter (specimen) 04/12/2011 7:26 AM EST 04/12/2011 8:10 AM EST Robyn Fowler MD MICROBIOLOGY - GENER AL ORDERABLES Performing Organization Address City/[facility] Co de Phone Number [facility] * (ABNORMAL) Urinalysis with microscopic (04/12/2011 [...] Urine Dipstick Clear Clear CERNER MILLENNIUM Specific [place] Urine Automated 1.021 1.002 - 1.030 CERNER [...] Fowler MD CHEMISTRY ORDERABLES Performing Organization Address [facility] de Phone Number [facility] * Troponin T (04/12/2011 7:15 AM EST) Troponin-T <0.03 <=0.03 ng/mL [facility] Comment: 0.03 ng/mL: Represents the 99th percentile upper reference limit for normals. >0.03 ng/mL: Elevated cardiac troponin T level indicative of myocardial damage. Diagnosis of acute, evolving or recent [place] requires a typical rise and gradual fall [...] consensus document of the Joint Society of Cardiology/[place] College of Cardiology Committee for the redefinition of myocardial infarction. Journal of the [place] College of Cardiology 2000; 36: 959-969] Blood specimen (specimen) 04/12/2011 7:15 AM EST 04/12/2011 7:34 AM EST Robyn Fowler MD CHEMISTRY ORDERABLES Performing Organization Address [facility] de Phone Number [facility] * APTT (04/12/2011 7:15 AM EST) Partial Thromboplastin Time 28 25 - 37 sec [facility] Comment: Recommended therapeutic PTT range for full dose unfractionated heparin is 80-114 seconds. Blood specimen (specimen) 04/12/2011 7:15 AM EST 04/12/2011 7:34 AM EST Robyn Fowler MD HEMATOLOGY ORDERABLE S Performing Organization Address [facility] Co de Phone Number [facility] * Prothrombin Time (04/12/2011 7:15 AM EST) Prothrombin Time 13.2 12.3 - 14.7 sec [facility] Comment: [facility] Transfusion Committee Guidelines: INR less than 2.0, PTT less than OR equal to 43.5 seconds, or Fibrinogen greater than or equal to 100 mg/dl indicate adequate procoagulant activity for hemostasis in patients without underlying bleeding disorders. International Normalization Ratio 1.0 0.9 - 1.1 [facility] Blood specimen (specimen) 04/12/2011 7:15 AM EST 04/12/2011 7:34 AM EST Robyn Fowler MD HEMATOLOGY ORDERABLE S Performing Organization Address [facility] [place] Phone Number [facility] * (ABNORMAL) Glucose, random (04/12/2011 7:15 AM EST) Glucose 299(H) 60 - 199 mg/dL [facility] Comment:Diabetes: >=200 mg/d L plus symptoms Blood specimen (specimen) 04/12/2011 7:15 AM EST 04/12/2011 7:34 AM EST Robyn Fowler MD CHEMISTRY ORDERABLES Performing Organization Address [facility] Phone Number [facility] * Creatinine, serum (04/12/2011 7:15 AM EST) Creatinine 0.98 0.80 - 1.50 mg/dL [facility] Est Glomerular Filtration Rate >60 >=60 [facility] Comment: The National Kidney Disease Education [...] Fowler MD CHEMISTRY ORDERABLES Performing Organization Address [facility] de Phone Number CERNER MILLENNIUM * BUN (04/12/2011 7:15 AM EST) Blood Urea Nitrogen 14 10 - 20 mg/dL CERNER MILLENNIUM Blood specimen (specimen) 04/12/2011 7:15 AM EST 04/12/2011 7:34 AM EST Robyn Fowler MD CHEMISTRY ORDERABLES Performing Organization Address [facility] de Phone Number CERNER [...] Fowler MD CHEMISTRY ORDERABLES Performing Organization Address City/[facility] Co de Phone Number DONNIE [...] to 0-10.6 mL/hr), Intravenous, CONTINUOUS, Starting on [facility] 04/13/11 at 1045, Until Fri04/14/11 at [...] Britton RN)0213 (Given - Provider: Ginny Britton, MARLIYN)0403 (Given - Provider: Ginny Britton RN)0416 (Given [...] Routine documented in this encounter Care Teams Hvac Sales Representative Relationship Specialty Start Date End Date Arely Vickers MD PCP - General 04/12/11 09/15/16 documented as of this encounter
--- OUTSIDE RECORDS SUMMARY | 2023-12-24 06:55 | XMS_ITS | Encounter Summary ---
Author Organization [facility] Address [facility] Mamie rosario [address] Care Team Providers Care Financial Reporting Manager Name Role Phone Rolando Zacarias MD Primary Care Provider [phone] Encounter Details Date Type Department Care Team (Late st Contact Info) Description 04/12/2011 11:00 AM EST Anesthesia [place] [address] Placido Doe MD [facility] [place] [address] Anesthesia Record Procedure Summary Procedure Name Responsible [...] 04/13/11; 0800 04/12/11 0726 by Cristian Byers, METALLOGRAPHER 04/13/11 0800 by Vishnu Mckoy RN (RETIRED) Peripheral IV Line - Single Lumen 04/12/11; 0726; 04/16/11; 0142 04/12/11 0726 by Cristian Byers, METALLOGRAPHER 04/16/11 0142 by Tawana Valenzuela RN Urethral Catheter 04/12/11; 0727; indwelling double lumen catheter; 16; in place (inserted WEIGHT TESTER); 04/15/11; 0643 04/12/11 0727 by Cristian Byers, [...] Time: 1435 04/12/11 1452 by Bello Guerrero GAGE MAKER 04/13/11 1435 by Esme Cole RRT documented [...] recent URI Cardiovascular (+) hypertension, (-) past DE, CAD and CABG/stent ROS comment: Symptomatic 5cm [...] 1:30 PM EDT Laboratory Appointment Lab [address] [place] [address] 01/02/2024 3:00 PM EDT Office Visit [place]ph[place] [address] Adam Costa MD [facility] [place] [address] documented as of this encounter Visit Diagnoses Not on filedocumented in this encounter Care Teams Financial Reporting Manager Relationship Specialty Start Date End Date Rolando Zacarias MD PCP - General 04/12/11 09/15/16 documented as of this encounter
--- NOTE | 2023-12-24 07:31 | ED.GENADUL_ITS ---
Discharge Plan Disposition Patient Disposition: Home Condition: Improving Discharge Details Chief Complaint: Abd Prob Clinical Impression: Back pain Primary Care Provider: Maximino Lucero ED Provider: Berry Aggarwal Home Meds and New Rx's Prescriptions: No Action lisinopril 5 mg tablet 5 mg PO DAILY amiodarone 200 mg tablet 200 mg PO DAILY Patient Comments: 11/27/20 [place] [facility] [place] pt was loaded on 400 mg BID for 7 days, RH tamsulosin 0.4 mg capsule 0.4 mg PO DAILY amlodipine 2.5 mg tablet 2.5 mg PO DAILY fluocinolone 0.01 % cream 1 applic topical BID magnesium oxide 400 mg magnesium capsule 400 mg PO BID Patient Comments: pt. reports he has been out of it nitroglycerin [Nitrostat] 0.4 mg tablet, sublingual 0.4 mg sublingual Q5 MIN PRN X3 PRN Rx Instructions: as a single dose; administer 5-10 minutes before situation known to precipitate angina attack apixaban 2.5 mg tablet 2.5 mg PO BID Patient Comments: 11/27/20 [place] [facility] [place] to elevated creatinine 2.4 RH insulin aspart U-100 [Novolog U-100 Insulin aspart] 100 unit/mL solution 9 unit subcut TID alogliptin 6.25 mg tablet 6.25 mg PO DAILY calcitriol 0.25 mcg capsule 0.25 mcg PO DAILY cholecalciferol (vitamin D3) 25 mcg (1,000 unit) capsule 25 mcg PO DAILY insulin glargine [Lantus U-100 Insulin] 100 unit/mL solution 25 unit subcut DAILY lisinopril 10 mg tablet 10 mg PO DAILY ibuprofen 200 MG capsule 600 - 800 mg PO PRN PRN atorvastatin [Lipitor] 40 MG tablet 40 mg PO QPM acetaminophen [Acetaminophen Extra Strength] 500 mg Tablet 1,000 mg PO Q8H PRN cyanocobalamin (vitamin B-12) 1,000 mcg Tablet 1,000 mcg PO DAILY furosemide 40 mg tablet 80 mg PO DAILY albuterol sulfate 90 mcg/actuation HFA aerosol inhaler 2 puff INHALATION ONCE PRN Patient Comments: INHALE TWO PUFFS BY MOUTH EVERY 4 TO 6 HOURS NEEDED metoprolol succinate 50 mg tablet extended release 24 hr 25 mg PO DAILY Qty: 0 0RF prednisone 10 mg tablet 10 mg PO DIRECTED Qty: 54 0RF Rx Instructions: see taper instructions gabapentin [Neurontin] 100 mg capsule 100 mg PO TID Qty: 42 0RF methocarbamol 500 mg tablet 500 mg PO TID Qty: 10 0RF lidocaine [Lidoderm] 5 % adhesive patch,medicated 1 patch topical DAILY PRNQty: 15 0RF Rx Instructions: leave on most painful area for up to 12 hrs Discharge Instructions Instructions: Low Back Pain ED Additional Instructions: Please follow-up with your primary care physician. HPI General Date/Time Provider Initiated Documentation: 12/24/23 06:33 . HPI Narrative: 88-year-old male presents with lower back discomfort and abdominal discomfort, constipation. Denies chest pain or shortness of breath denies dysuria Related Data Home Medications ?Medication ?Instructions ?Recorded ?Confirmed ibuprofen 200 mg capsule 600 - 800 mg PO PRN PRN 09/05/15 12/23/23 atorvastatin 40 mg tablet (Lipitor) 40 mg PO QPM 09/20/17 12/23/23 fluocinolone 0.01 % topical cream 1 applic topical BID 01/14/20 12/23/23 magnesium oxide 400 mg PO BID 01/14/20 12/23/23 nitroglycerin 0.4 mg sublingual 0.4 mg sublingual Q5 MIN PRN X3 PRN 01/14/20 12/23/23 tablet (Nitrostat) acetaminophen 500 mg tablet 1,000 mg PO Q8H PRN 02/29/20 12/23/23 (Acetaminophen Extra Strength) cyanocobalamin (vitamin B-12) 1,000 mcg PO DAILY 03/01/20 12/23/23 1,000 mcg tablet amiodarone 200 mg tablet 200 mg PO DAILY 11/27/20 12/23/23 lisinopril 5 mg tablet 5 mg PO DAILY 11/27/20 12/23/23 tamsulosin 0.4 mg capsule 0.4 mg PO DAILY 11/27/20 12/23/23 apixaban 2.5 mg tablet 2.5 mg PO BID 05/31/21 12/23/23 insulin aspart U-100 100 unit/mL 9 unit subcut TID 05/31/21 12/23/23 subcutaneous solution (Novolog U-100 Insulin aspart) amlodipine 2.5 mg tablet 2.5 mg PO DAILY 07/11/22 12/23/23 furosemide 40 mg tablet 80 mg PO DAILY swelling 07/11/22 12/23/23 albuterol sulfate 90 mcg/actuation 2 puff inhalation ONCE PRN 05/17/23 12/23/23 aerosol inhaler alogliptin 6.25 mg tablet 6.25 mg PO DAILY 10/07/23 12/23/23 calcitriol 0.25 mcg capsule 0.25 mcg PO DAILY 10/07/23 12/23/23 cholecalciferol (vitamin D3) 25 25 mcg PO DAILY 10/07/23 12/23/23 mcg (1,000 unit) capsule insulin glargine 100 unit/mL 25 unit subcut DAILY 10/07/23 12/23/23 subcutaneous solution (Lantus U-100 Insulin) lisinopril 10 mg tablet 10 mg PO DAILY 10/07/23 12/23/23 metoprolol succinate 50 mg 25 mg (1/2 x 50 mg) PO DAILY #0 10/07/23 12/23/23 tablet,extended release 24 hr tabs gabapentin 100 mg capsule 100 mg PO TID #42 caps 12/21/23 12/23/23 (Neurontin) prednisone 10 mg tablet 10 mg PO DIRECTED #54 tabs 12/21/23 12/23/23 methocarbamol 500 mg tablet 500 mg PO TID #10 tabs 12/23/23 lidocaine 5 % topical patch 1 patch topical DAILY PRN #15 ea 12/24/23 (Lidoderm) Previous Rx's ?Medication ?Instructions ?Recorded metoprolol succinate 50 mg 25 mg (1/2 x 50 mg) PO DAILY #0 10/07/23 tablet,extended release 24 hr tabs gabapentin 100 mg capsule 100 mg PO TID #42 caps 12/21/23 (Neurontin) prednisone 10 mg tablet 10 mg PO DIRECTED #54 tabs 12/21/23 methocarbamol 500 mg tablet 500 mg PO TID #10 tabs 12/23/23 lidocaine 5 % topical patch 1 patch topical DAILY PRN #15 ea 12/24/23 (Lidoderm) Allergies Allergy/AdvReac Type Severity Reaction Status Date / Time adhesive Allergy Severe significant Verified 12/24/23 06:33 skin reaction, swelling, erythema, discomfort neomycin Allergy Unknown Verified 12/24/23 06:33 General Stated Complaint: Abd Prob ASTON: 3 Exam Narrative Exam Narrative: Alert oriented interactive Mucous membranes tongue secretions Lungs clear bilaterally speaking full sentences Abdomen soft nontender nondistended Midline spinal tenderness step-off crepitus or deformity No CVA tenderness All extremities without deficit normal speech no cranial nerve deficits Course Vital Signs Vital signs: Vital Signs Temperature 36.9 C 12/24/23 06:26 Pulse 75 12/24/23 06:26 Respiratory Rate 18 12/24/23 06:26 Blood Pressure 111/52 L 12/24/23 06:26 Pulse Oximetry 95 12/24/23 06:26 Temperature 36.9 C 12/24/23 06:26 Temperature Source Skin 12/24/23 06:26 Pulse 75 12/24/23 06:26 Respiratory Rate 18 12/24/23 06:26 Respiratory Effort Normal 12/24/23 06:32 Blood Pressure 111/52 L 12/24/23 06:26 Blood Pressure Position Sitting 12/24/23 06:26 Pulse Oximetry 95 12/24/23 06:26 Oxygen Delivery Method Rescue 2 Compact CPAP 12/24/23 06:26 Oxygen Flow Rate 0 12/24/23 06:26 Medical Decision Making 88-year-old male presents with lower back discomfort atraumatic in nature associate with abdominal discomfort, no nausea no vomiting, does have slight constipation over the last couple of days, alert oriented interactive hemodynamically stable afebrile nontoxic nonperitoneal, no midline spinal tenderness, neurologically intact. Consider lumbar strain versus lumbar radiculopathy versus UTI versus nephrolithiasis muscles consider intra-abdominal pathology such as colitis enteritis or aortic pathology although patient has warm well-perfused extremities with equal pulses no neurologic deficits, low suspicion for ACS PE or pneumonia, will obtain basic labs CT abdomen pelvis analgesia light fluid close reassessment 10: 39 patient resting comfortably feeling much better after fluids and Tylenol. CT and imaging unremarkable for any acute abnormalities. Quality:SDOH Health Related Social Needs: No Data to Display PFSH All Active Problems (Updated 12/24/23 @ 10:39 by Berry Aggarwal MD) Back pain (Acute) Back pain (Acute) Gout of left knee (Acute) Trigger thumb of left hand (Acute) Acute kidney injury superimposed on CKD (Acute) Severe sepsis (Acute) Chronic kidney disease, stage 4 (severe) (Acute) Medication management (Acute) amiodarone for afib EKG Q 12 Months RH HTN (hypertension) (Acute) CAD (coronary artery disease) (Chronic) Dermatitis (Acute) Atrial fibrillation (Chronic) Chest pain (Acute) Acute non-ST elevation myocardial infarction (NSTEMI) (Acute) Wound dehiscence, surgical (Acute) Type 2 diabetes mellitus (Chronic) Fatty liver (Acute) Chronic kidney disease, stage 3 (Chronic) Mass of salivary gland (Acute) Ischemic cardiomyopathy (Chronic) Skin lesion of scalp (Acute) Anemia (Chronic) Hearing impairment (Acute) Medical History HLD (hyperlipidemia) Former smoker Balanitis Atrial flutter Edema Cruz's disease Phimosis (10/17/15) Erectile dysfunction AAA (abdominal aortic aneurysm) Hypomagnesemia CHF (congestive heart failure) Renal insufficiency 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) Diverticulitis of large intestine with abscess Hypercholesterolemia Diabetes mellitus Myocardial infarct Phimosis Surgical History Status post colostomy takedown (~03/01/20) S/P left hemicolectomy (~07/19/18) H/O phimosis s/p repair History of heart artery stent S/P hernia repair History of endovascular stent graft for abdominal aortic aneurysm (AAA) Social History Smoking/Tobacco Use Status: Former Tobacco Use Quit Date: 01/03/17 Tobacco: How many years used: 60 Smoking risk assessment performed?: Yes Alcohol Intake: former Drug use: Never Substance use type: does not use Housing: house Do you feel safe at home: Yes Do you feel safe in your relationship?: Yes
[2023-12-24] MEDS: ACETAMINOPHEN 1,000 MG/100 ML BTL 400 MG IVPB (08:09)
[2023-12-24] MEDS: Normal Saline 500 ML 1000 ML IV (08:10)
[2023-12-24] MEDS: Ondansetron 4 MG/2 ML VIAL IVP (08:10)
[2023-12-24 08:32] LABS: Abs Immature Grans 0.11 10^3/uL (0.0-0.06); Absolute Basophil Count 0.06 10^3/uL (0.0-0.2); Absolute Eosinophil Count 0.19 10^3/uL (0.0-0.7); Basophils % 0.4 %; Eosinophils % 1.3 %; HGB 13.1 g/dL (13.5-17.5); Immature Grans % 0.8 %; Lymphocytes % 11.3 %; MCH 29.4 pg (27.0-33.0); MCV 92 fL (80-95); Monocytes % 11.3 %; Neutrophils % 74.9 %; Platelet Count 317 10^3/uL (130-400); RBC 4.45 10^6/uL (4.36-5.78); RDW 12.3 % (11.8-14.1); WBC 14.39 10^3/uL (4.4-10.8)
[2023-12-24 08:34] LABS: Bilirubin Negative (Negative); Blood Negative (Negative); Clarity Clear (Clear); Glucose Negative (Negative); Ketones Negative (Negative); Leukocyte Esterase Negative (Negative); Nitrite Negative (Negative); Specific Gravity 1.015 (1.005-1.025); Urobilinogen 0.2 mg/dL (Up to 0.2)
[2023-12-24 08:34] LABS: Absolute Lymphocyte Count 1.63 10^3/uL (1.2-3.4); Absolute Monocyte Count 1.63 10^3/uL (0.1-0.8); Absolute Neutrophil Count 10.78 10^3/uL (1.2-6.7)
[2023-12-24 08:53] LABS: INR 1.1 (0.9-1.1); PTT Activated 35.7 sec (23.6-32.8); Prothrombin Time 11.4 sec (9.1-11.1)
[2023-12-24 09:07] LABS: ALT 30 U/L (16-63); AST 25 U/L (15-37); Albumin 2.3 g/dL (3.4-5.0); Alkaline Phosphatase 147 U/L (46-116); Anion Gap 9.8 mmol/L (3-11); BUN 41 mg/dL (7-18); Bilirubin, Total 1.01 mg/dL (0.2-1.0); CO2 27.2 mmol/L (21.0-32.0); CREATININE 3.4 mg/dL (0.70-1.30); Calcium 9.4 mg/dL (8.5-10.1); Chloride 103 mmol/L (98-107); Estimated GFR 16.77 (mL/min/1.73m2); Glucose 107 mg/dL (74-106); Lipase 15 U/L (16-77); Magnesium 2.1 mg/dL (1.8-2.4); Potassium 3.8 mmol/L (3.5-5.1); Sodium 140 mmol/L (136-145); TSH (W/Ref FT4) 1.31 uIU/mL (0.36-3.74); Total Protein 6.9 g/dL (6.4-8.2)
--- NOTE | 2023-12-24 09:15 | DI.CT_ITS ---
Exam(s) CT ABDOMEN PELVIS WO EXAM: CT ABDOMEN PELVIS WO CLINICAL HISTORY: abd pain back pain. TECHNIQUE: Imaging Protocol: Axial computed tomography images with coronal and sagittal reformatted images were created and reviewed. Oral: / no COMPARISON: CT CT ABDOMEN PELVIS WO from 12/21/2023 FINDINGS: Exam is mildly limited by motion. Lung Bases: No acute findings. The heart is enlarged. Liver: Normal density. No suspicious mass. Gallbladder and biliary tract: No radiodense calculus or biliary dilation. Pancreas: Normal density. No abnormal calcifications or inflammatory process. Spleen: Normal. Kidneys: Normal size, contour and axis. No radiodense stones. No obstructive uropathy. No suspicious masses seen. Adrenal glands: No masses seen. Lymph nodes: Within normal limits. Vasculature: Stable size and appearance of saccular infrarenal abdominal aortic aneurysm with aorta b i-iliac stents. No evidence of leak. Soft tissues: Unremarkable. Bladder: No wall thickening. No mass or calculi. Bowel: No obstruction or bowel wall thickening. Sigmoid anastomosis. Diverticulosis. No evidence of diverticulitis. Evaluation of the colon is somewhat limited due to motion. The appendix is not s een. Peritoneal cavity: No ascites. No focal collection. No mesenteric inflammatory response. Reproductive organs: Prostate enlarged. Bones: Advanced degenerative changes at L3-4 through L5-S1. No compression fractures. Severe centra l canal stenosis again noted at L3-4. Moderate central canal stenosis present at L4-5. Neural lily inal narrowing also present at these levels. IMPRESSION: No acute abnormality in the abdomen or pelvis. Stable size and appearance of abdominal aortic aneurysm with stents in place. Advanced degenerative changes of the lower lumbar spine. RADIATION DOSE DELIVERED: Total DLP DATA REPOSITORY: All CT scans at this facility are submitted to the National Radiology Data Registry (NRDR) Dose Index Registry (DIR) with the [employer] (ACR). RADIATION OPTIMIZATION: All CT scans at this facility use at least one of these dose optimization te chniques: automated exposure control; mA and/or kV adjustment per patient size (includes targeted exa ms where dose is matched to clinical indication); or iterative reconstruction.
[2023-12-24 09:32] LABS: Diff Comment Agrees w/ Instrument
--- NOTE | 2023-12-24 09:52 | DI.RAD_ITS ---
Exam(s) XR CHEST 2V PA LATERAL EXAM: XR CHEST 2V PA LATERAL CLINICAL HISTORY: abd pain, back pain TECHNIQUE: 2D digital imaging was performed. Two views. COMPARISON: No exams were available for comparison FINDINGS: Exam is limited by poor inspiration on the lateral view. HEART: Enlarged. Aorta: Calcified and tortuous. PULMONARY VASCULATURE: Normal. MEDIASTINUM: Unremarkable. LUNGS: Clear as visualized. PLEURAL SPACE: No pleural effusion or pneumothorax. BONE:Unremarkable for age. SOFT TISSUES: Unremarkable. IMPRESSION: No acute abnormality. DATA REPOSITORY: RADIATION DOSE DELIVERED:
== END 2023-12-24 10:56 | disposition home or self-care (01) ==
PROVIDERS: Emergency Provider Emergency Medicine; PCP Student in an Organized Health Care Education/Training Program
DX: M54.9 Dorsalgia, unspecified (principal); R30.9 Painful micturition, unspecified; R30.0 Dysuria; Z86.79 Personal history of other diseases of the circulatory system
CPT/HCPCS: 80053; 83690; 93005; 96361; 96365; 96375; 99284; 71046; 74176; 81003; 83735; 84443; 85025; 85610; 85730; 93010; 99283; J0131; J2405

== ENCOUNTER 2023-12-28 06:31 | Emergency (ER) | payer MEDICARE, SELFPAY ==
[2023-12-28 06:35] VITALS: BP 140/67; PULSE 65; RESP 14; TEMP 36.2; O2SAT 97
--- OUTSIDE RECORDS SUMMARY | 2023-12-28 06:40 | XMS_ITS | Clinical Summary ---
Author Organization [facility] Address [address] [place] [address] Care Team Providers Care Ornamental Ironworker Name Role Phone Rolando Moise MD Primary Care Provider Encounters Date Type Department Care Team Description 10/10/2023 Lab Requisition [facility] Pathology & Laboratory [address] [address] Outr Resulting Lab, Provider 10/06/2023 Lab Requisition [facility] Pathology & Laboratory [address] [address] Outr Resulting Lab, Provider from Last 3 [...] Negative Negative 10/13/2023 13:01 EDT [facility] Blood VENOUS BLOOD / Unknown 10/09/2023 14:15 EDT 10/10/2023 17:29 EDT Provider Outr Resulting Lab IMMUNOLOGY A ND SEROLOGY ORDERABLES Performing Organization Address City/State/[facility] Co de Phone Number [facility] [address] [place] [address] from Last 3 Months Care Teams Ornamental Ironworker Relationship Specialty Start Date End Date Rolando Moise MD [facility] [address] [place] [place] [address] PCP - General 10/30/16
--- OUTSIDE RECORDS SUMMARY | 2023-12-28 06:40 | XMS_ITS | Clinical Summary ---
Author Organization [facility] Address [facility] [place] [address] Care Team Providers Care Banana Carrier Name Role Phone Rolando Moise MD Primary Care Provider [phone] Allergies No known active allergies Medications Medication [...] gauge x 5/16 Syringe 1 Box [place] [facility]Non[place]rug; Combo Route) route as needed. 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 He also tolerates house/yard work fine [...] Department Care Team Description 12/16/2023 [place] [address] Nimisha Olmos from Last 3 [...] 1:30 PM EDT Laboratory Appointment Lab [address] [place] [address] 01/02/2024 3:00 PM EDT Office Visit Nephrology [place] [address] Adam Costa MD [facility] [place] [address] Health Maintenance Due Date Last Done Comments [...] 01/04/2024 02/05/2017 Medical Devices Implanted Type Area Turntable Worker Device Identifier Shelf Expiration Date Model / Serial / Lot Graft,Zfa,Mbdy ,[id number] ([id number]) (Autore[employer]) - [id number] Implanted:Qty: 1 on 04/12/2011 at [facility] IMPLANTS N/A: Aorta 03/13/2012 TFFB-32-82 -ZT / [id number] / [id number] Graft,Zfa,Ciil ,[id number],[id number] ([id number]) ([employer]ore[employer]) - [id number] Implanted:Qty: 1 on 04/12/2011 at [facility] IMPLANTS Right: Abdomen 08/11/2012 TFLE-16-56 -ZT / [id number] / [id number] Description:right iliac Graft,Zfa,Ciil ,Ztk,[id number] ([id number]) ([employer]) - [id number] Implanted:Qty: 1 on 04/12/2011 at [facility] IMPLANTS Left: Abdomen 03/13/2012 TFLE-16-73 -ZT / [id number] / [id number] Procedures Procedure Name Priority Date/Time Associated Diagnosis Comments LAB SCAN 11/18/2023 12:00 AM EDT HC VENIPUNCTURE Routine 11/09/2020 6:57 AM EDT HEMOGLOBIN A1C Routine 11/07/2020 8:50 AM EDT from Last 3 Months or Most Recently Relevant to Health Maintenance Results * Scan Doc: Lab (11/18/2023 12:00 AM EDT) Narrative 11/18/2023 12:00 AM EDT Ordered by [...] of Diabetes Mellitus, Position Statement from the [place] [employer]. ??Diabetes Care, Volume 33, Supplement [...] CHEMISTRY ORDERABL ES [facility] [place] [address] * (ABNORMAL) Hemoglobin A1c (11/07/2020 8:50 AM [...] Mellitus, Diabetes Care 2013; 36: Suppl. 1, A85-40 Estimated Average Glucose See note mg/dL [facility] [...] into estimated average glucose values. ??Diabetes Care 2008:31(8):3255-2609. Blood Venous Draw / Unknown 11/07/2020 8:50 AM EDT 11/07/2020 11:00 AM EDT Narrative Resulting Agency Comment Spec In Lab Evan Sinclair MD CHEMISTRY ORDERABLES Performing Organization Address City/State/[facility] Co de Phone Number [facility] [place] [address] from Last 3 Months or Most Recently [...] is based on Patients wishes. Care Teams Banana Carrier Relationship Specialty Start Date End Date Rolando Moise MD [address] [place] [address] PCP - General Family Medicine 09/16/16
--- OUTSIDE RECORDS SUMMARY | 2023-12-28 06:40 | XMS_ITS | Encounter Summary ---
Author Organization [facility] Address [address] [place] [address] Care Team Providers Care Outpatient Interviewing Clerk Name Role Phone Rolando Moise MD Primary Care Provider [phone] Encounter Details Date Type Department Care Team (Late st Contact Info) Description 03/06/2023 Lab Requisition [facility] Pathology & Laboratory Medicine - [address] [id number] Outr Resulting Lab, Provider Social History Tobacco [...] 19 - 88 pg/mL 03/07/2023 18:47 EDT [facility] Blood VENOUS BLOOD / Unknown 03/06/2023 15:45 EDT 03/07/2023 18:28 EDT Provider Outr Resulting Lab CHEMISTRY & BLOOD GAS ORDERABLES [facility] [address] [place] [address] documented in this encounter Visit Diagnoses Not on filedocumented in this encounter Care Teams Outpatient Interviewing Clerk Relationship Specialty Start Date End Date Rolando Moise MD [address] [place] [address] PCP - General 10/30/16 documented as of this encounter
--- OUTSIDE RECORDS SUMMARY | 2023-12-28 06:40 | XMS_ITS | Encounter Summary ---
Author Organization [facility] Address [address] [place] [address] Care Team Providers Care Review Specialist Name Role Phone Rolando Zacarias MD Primary Care Provider Encounter Details Date Type Department Care Team (Late st Contact Info) Description 10/28/2016 Results Only [facility] [phone] Stephani Beltre, [address] [place] [address] Social History Tobacco Use Types [...] ? CALI THOMPSON ? Accession #: ? [id number] : ? 1935 (Age: 80) ??M ?Collect Date: ? 10/28/2016 Location: ? [facility] ? Receive Date: ? 10/29/2016 Provider: ? STEPHANI BELTRE DO Copy to: ?NILSA PRINCE CLIP LOADING MACHINE FEEDER ? CYTOLOGIC DIAGNOSIS: A. NECK/TAIL OF PAROTID, [...] with clinical and radiographic findings is essential. ??Pipe Smoking Machine Operator slides of this case were reviewed at [...] cellular enhancement technique. ? End of Report [facility] 10/28/2016 10/29/2016 9:2 2 EDT Stephani Beltre DO PATHOLOGY ORDER BRIANNE Performing Organization Address City/State/[facility] Co de Phone Number [facility] [address] [place] [address] documented in this encounter Visit Diagnoses Not on filedocumented in this encounter Care Teams Review Specialist Relationship Specialty Start Date End Date Rolando Zacarias MD [address] [place] [address] PCP - General 12/17/11 10/29/16 documented as of this encounter
--- OUTSIDE RECORDS SUMMARY | 2023-12-28 06:40 | XMS_ITS | Encounter Summary ---
Author Organization [facility] Address [address] [place] [address] Care Team Providers Care Group Home Supervisor Name Role Phone Rolando Moise MD Primary Care Provider [phone] Encounter Details Date Type Department Care Team (Late st Contact Info) Description 04/05/2021 Lab Requisition [facility] Pathology & Laboratory Medicine - [facility] [address] [place] [address] Rolando Moise MD [address] [place] [address] [place], [place] [id number] Encounter for other general examination Social History [...] management options, if applicable. 04/06/2021 11:57 EST [facility] Final Diagnosis A. SKIN OF BACK, RIGHT, PUNCH BIOPSY: -Focal acantholytic dyskeratosis. See comment. 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 04/06/2021 11:57 [facility] Attestation By the signature below, the attending physician certifies that they have 1) personally conducted a gross and/or microscopic examination of the described specimen(s), and/or personally interpreted the results of laboratory testing of the described specimen(s), and 2) personally rendered or confirmed the above diagnosis. 04/06/2021 11:57 [facility] at 1157 Clinical History Inflammatory rash; drug eruption? 04/06/2021 11:57 [facility] Gross Description A. Received in formalin labelled with proper patient identification (initials M, G) and R back, inflammatory rash eruption is a francisco-white and francisco-brown skin punch biopsy measuring 0.5 cm in diameter and excised to a depth of 0.5 cm. Bisected and submitted entirely in A1. QUINN ALY(ASCP) 04/05/2021 19:57 04/06/2021 11:57 [facility] Performing Lab [facility] 04/06/2021 11:57 [facility] Scanned Images 04/06/2021 11:57 [facility] Tissue TISSUE SPECIMEN FROM SKIN / Unknown 04/04/2021 16:00 EST 04/05/2021 17:51 EST Rolando Moise MD PATHOLOGY ORDERABLES [facility] [address] [place] [address] documented in this encounter Visit Diagnoses Diagnosis Encounter for other general examination documented in this encounter Care Teams Group Home Supervisor Relationship Specialty Start Date End Date Rolando Moise MD [facility] [place] [address] PCP - General 6/28/17 documented as of this encounter
--- OUTSIDE RECORDS SUMMARY | 2023-12-28 06:40 | XMS_ITS | Encounter Summary ---
Author Organization [facility] Address [address] [place] [address] Care Team Providers Care Streetcar Starter Name Role Phone Rolando Moise MD Primary Care Provider [phone] Encounter Details Date Type Department Care Team [...] on filedocumented in this encounter Care Teams Streetcar Starter Relationship Specialty Start Date End Date Rolando Moise MD [facility] [place] [address] [address] PCP - General 10/30/16 documented as of this encounter
--- OUTSIDE RECORDS SUMMARY | 2023-12-28 06:40 | XMS_ITS | Encounter Summary ---
Author Organization [facility] Address [facility] [place] [address] Care Team Providers Care Manager Distribution Center Name Role Phone Rolando Moise MD Primary Care Provider [phone] Encounter Details Date Type Department Care Team (Late st Contact Info) Description 09/01/2023 Orders [place] [id number] Estela Jesus RN Infrarenal abdominal aortic aneurysm [...] 1:30 PM EDT Laboratory Appointment Lab [address] [place] [address] 01/02/2024 3:00 PM EDT Office Visit [place] [address] Adam Costa MD [facility] [place] [address] Scheduled Orders Name Type Priority Associated Diagnoses Orde r Schedule Creatinine Lab STAT Infrarenal abdominal aortic aneurysm (AAA) without rupture Expected: 09/01/2023, Expires: 08/31/2024 documented as of this encounter Visit Diagnoses Diagnosis Infrarenal abdominal aortic aneurysm (AAA) without rupture documented in this encounter Care Teams Manager Distribution Center Relationship Specialty Start Date End Date Rolando Moise MD [address] [place] [address] PCP - General Family Medicine 09/16/16 documented as of this encounter
--- OUTSIDE RECORDS SUMMARY | 2023-12-28 06:40 | XMS_ITS | Encounter Summary ---
Author Organization Formerly [facility] [place] [address] Care Team Providers Care Tank Hoop Bender Name Role Phone Rolando Moise MD Primary Care Provider [phone] Encounter Details Date Type Department Care Team (Late st Contact Info) Description 07/25/2023 Telephone [place] [address] Migue Ahn Social History Tobacco [...] PM EDT Laboratory Appointment Lab [address] [place] [address] 01/02/2024 3:00 PM EDT Office Visit [place] [address] Adam Costa MD [facility] [place] [address] documented as of this encounter Visit Diagnoses Not on filedocumented in this encounter Care Teams Tank Hoop Bender Relationship Specialty Start Date End Date Rolando Moise MD [address] [place] [address] [place] [address] PCP - General Family Medicine 09/16/16 documented as of this encounter
--- OUTSIDE RECORDS SUMMARY | 2023-12-28 06:40 | XMS_ITS | Encounter Summary ---
Author Organization [facility] Address [address] [place] [address] Care Team Providers Care Insurance Loss Assessor Name Role Phone Rolando Moise MD Primary Care Provider [phone] Encounter Details Date Type Department Care Team (Late st Contact Info) Description 10/10/2023 Lab Requisition [facility] Pathology & Laboratory Medicine - [address] [phone] Outr Resulting Lab, Provider Social History Tobacco [...] Lyme Ab Negative Negative 10/13/2023 13:01 EDT [facility] Blood VENOUS BLOOD / Unknown 10/09/2023 14:15 EDT 10/10/2023 17:29 EDT Provider Outr Resulting Lab IMMUNOLOGY A ND SEROLOGY ORDERABLES [facility] [address] [place] [address] documented in this encounter Visit Diagnoses Not on filedocumented in this encounter Care Teams Insurance Loss Assessor Relationship Specialty Start Date End Date Rolando Moise MD [address] [place] [address] PCP - General 10/30/16 documented as of this encounter
--- OUTSIDE RECORDS SUMMARY | 2023-12-28 06:40 | XMS_ITS | Encounter Summary ---
Author Organization [facility] Address [address] [place] [address] Care Team Providers Care Herpetologist Name Role Phone Unavailable Primary Care Provider Unavailabl e Encounter Details Date Type Department Care Team (Late st Contact Info) Description 08/06/2001 Results Only [facility] conversion [address] [place] [address] Arely Schroeder MD [address] [place] [phone] Social History Tobacco Use Types Packs/Day Years [...] CALI THOMPSON Mamie ? Accession #: ? [id number] ? : ? 1935 (Age: 65) ??M [...] Schroeder MD PATHOLOGY ORDERABLES Performing Organization Address City/State/[facility] Co de Phone Number [facility] [address] [place] [address] documented in this encounter Visit Diagnoses Not on filedocumented in this encounter
--- OUTSIDE RECORDS SUMMARY | 2023-12-28 06:40 | XMS_ITS | Encounter Summary ---
Author Organization [facility] Address [address] [place] [address] Care Team Providers Care Can Striper Name Role Phone Rolando Moise MD Primary Care Provider [phone] Encounter Details Date Type Department Care Team (Latest Contact Info) Description 07/19/2018 12:50 EDT - 07/19/2018 23:59 EDT Hospital Encounter [address] [address] Unknown, Provider, Discharge Disposition: Home or Self Care Social History Tobacco Use Types Packs/Day Years Used Date Smoking Tobacco: Never Assessed Sex and Gender Information Value Date Recorded Sex Assigned at Not on file Gender Identity Not on file Sexual Orientation Not on file documented as of this encounter Discharge Disposition Disposition Code Departure Means Destination Home or Self Group Home documented in this encounter Plan of Treatment Not on file documented as of this encounter Visit Diagnoses Not on filedocumented in this encounter Care Teams Can Striper Relationship Specialty Start Date End Date Rolando Moise MD [facility] [place] [address] PCP - General 10/30/16 documented as of this encounter
--- OUTSIDE RECORDS SUMMARY | 2023-12-28 06:40 | XMS_ITS | Encounter Summary ---
Author Organization [facility] Address [address] [place] [address] Care Team Providers Care Highway Patrol Pilot Name Role Phone Rolando Moise MD Primary Care Provider [phone] Encounter Details Date Type Department Care Team (Late st Contact Info) Description 02/25/2020 Lab Requisition [facility] Pathology & Laboratory Medicine - [facility] [address] [place], [place] [id number] Outr Resulting Lab, Provider Social History Tobacco [...] in accordance with CLIA regulations, [employer] [place] (CAP) guidelines (Jul 22, 2019), and FDA guidance (Jul 03, 2019). This test is only for use under the Food and Drug Administration's Emergency Use Authorization. Swab ENTIRE NASOPHARYNX / Unknown 02/25/2020 9:11 EDT 02/25/2020 15:49 EDT Provider Outr Resulting Lab MICROBIOLOGY - GENERAL ORDERABLES [facility] [place], [place] * COVID-19 TESTING (02/25/2020 9:11 EDT) COVID-19 rt-PCR Result NEGATIVE Negative 02/26/2020 12:38 EDT [facility] Comment: 2019-novel Coronavirus (2019-nCoV) not [...] in accordance with CLIA regulations, [employer] of [place] (CAP) guidelines (Jul 22, 2019), and FDA guidance (Jul 03, 2019). This test is only for use under the Food and Drug Administration's Emergency Use Authorization. Performing Lab [facility] 02/26/2020 12:38 EDT [facility] Swab 02/25/2020 9:11 EDT 02/25/2020 15:49 EDT Provider Outr Resulting Lab MICROBIOLOGY - GENERAL ORDERABLES [facility] [address] [place] [address] [facility] [place], [place] documented in this encounter Visit Diagnoses Not on filedocumented in this encounter Care Teams Highway Patrol Pilot Relationship Specialty Start Date End Date Rolando Moise MD [facility] [place] [address] PCP - General 10/30/16 documented as of this encounter
--- OUTSIDE RECORDS SUMMARY | 2023-12-28 06:40 | XMS_ITS | Encounter Summary ---
Author Organization [facility] Address [facility] [place] [address] Care Team Providers Care Diagnostics Sales Developer Name Role Phone Rolando Moise MD Primary Care Provider [phone] Encounter Details Date Type Department Care Team (Late st Contact Info) Description 12/16/2023 [place] [address] Nimisha Olmos Social History Tobacco [...] 1:30 PM EDT Laboratory Appointment Lab [address] [place] [phone] 01/02/2024 3:00 PM EDT Office Visit [place]ph[place] [address] Adam Costa MD [facility] [place] [address] documented as of this encounter Visit Diagnoses Not on filedocumented in this encounter Care Teams Diagnostics Sales Developer Relationship Specialty Start Date End Date Rolando Moise MD [address] [place] [address] PCP - General Family Medicine 09/16/16 documented as of this encounter
--- OUTSIDE RECORDS SUMMARY | 2023-12-28 06:40 | XMS_ITS | Encounter Summary ---
Author Organization [facility] Address [address] [place] [address] Care Team Providers Care Welder Fitter Arc Name Role Phone Rolando Moise MD Primary Care Provider [phone] Encounter Details Date Type Department Care Team (Late st Contact Info) Description 10/06/[address] [facility] Pathology & Laboratory Medicine - [address] [phone] Outr Resulting Lab, Provider Social History Tobacco [...] Lyme Ab Negative Negative 10/07/2023 10:22 EDT [facility] Blood VENOUS BLOOD / Unknown 10/06/2023 0:04 EDT 10/06/2023 16:59 EDT Provider Outr Resulting Lab IMMUNOLOGY A ND SEROLOGY ORDERABLES [facility] [address] [place] [address] documented in this encounter Visit Diagnoses Not on filedocumented in this encounter Care Teams Welder Fitter Arc Relationship Specialty Start Date End Date Rolando Moise MD [address] [place] [address] PCP - General 10/30/16 documented as of this encounter
--- OUTSIDE RECORDS SUMMARY | 2023-12-28 06:40 | XMS_ITS | Encounter Summary ---
Author Organization Health system Address [address] [place] [address] Care Team Providers Care Motor Vehicle Assembly Supervisor Name Role Phone Rolando Moise MD Primary Care Provider [phone] Encounter Details Date Type Department Care Team (Late st Contact Info) Description 04/24/2020 Lab Requisition [facility] Pathology & Laboratory Medicine - [facility] [address] [place] [address] Dana Quijano MD [address] [place] [phone] Encounter for other general examination Social History [...] Diagnosis See scanned downtime report. 04/24/2020 13:02 [facility] Attestation Report electronically released by Rubén Adair on 04/24/20 . 04/24/2020 13:02 [facility] Performing Lab [facility] 04/24/2020 13:02 EST [facility] Scanned Images 04/24/2020 13:02 EST [facility] Tissue ENTIRE APPENDIX / Unknown 03/01/2020 12:10 EDT 04/24/2020 13:00 EST Dana Quijano MD PATHOLOGY ORDERA CHILOS [facility] [address] [place] [address] documented in this encounter Visit Diagnoses Diagnosis Encounter for other general examination documented in this encounter Care Teams Motor Vehicle Assembly Supervisor Relationship Specialty Start Date End Date Rolando Moise MD [address] [place] [address] PCP - General 10/30/16 documented as of this encounter
--- OUTSIDE RECORDS SUMMARY | 2023-12-28 06:40 | XMS_ITS | Encounter Summary ---
Author Organization [facility] Address [address] [place] [address] Care Team Providers Care Airport Operations Duty Manager Name Role Phone Rolando Moise MD Primary Care Provider [phone] Encounter Details Date Type Department Care Team (Late st Contact Info) Description 08/17/2021 Lab Requisition [facility] Pathology & Laboratory Medicine - [address] [id number] Outr Resulting Lab, Provider Social History Tobacco [...] 19 - 88 pg/mL 08/20/2021 11:29 EDT [facility] Blood VENOUS BLOOD / Unknown 08/16/2021 13:50 EDT 08/17/2021 16:29 EDT Provider Outr Resulting Lab CHEMISTRY & BLOOD GAS ORDERABLES [facility] [address] [place] [address] documented in this encounter Visit Diagnoses Not on filedocumented in this encounter Care Teams Airport Operations Duty Manager Relationship Specialty Start Date End Date Rolando Moise MD [address] [place] [address] PCP - General 10/30/16 documented as of this encounter
--- OUTSIDE RECORDS SUMMARY | 2023-12-28 06:40 | XMS_ITS | Encounter Summary ---
Author Organization [facility]ly [facility] [place] [address] Care Team Providers Care Founder President And Ceo Name Role Phone Rolnado Moise MD Primary Care Provider [phone] Encounter Details Date Type Department Care Team (Late st Contact Info) Description 07/25/2023 Telephone [place] [phone] Migue Ahn Social History Tobacco Use Types [...] 1:30 PM EDT Laboratory Appointment Lab [address] [place] [address] 01/02/2024 3:00 PM EDT Office Visit [place] [address] [facility] [place] [address] documented as of this encounter Visit Diagnoses Not on filedocumented in this encounter Care Teams Founder President And Ceo Relationship Specialty Start Date End Date Rolando Moise MD [address] [place] [address] [place] [address] PCP - General Family Medicine 09/16/16 documented as of this encounter
--- OUTSIDE RECORDS SUMMARY | 2023-12-28 06:40 | XMS_ITS | Encounter Summary ---
Author Organization [facility] Address [address] [place] [address] Care Team Providers Care Endoscopy Specialty Technician Name Role Phone Rolando Zacarias MD Primary Care Provider [phone] Encounter Details Date Type Department Care Team (Latest Contact Info) Description 10/28/2016 9:45 EDT - 10/28/2016 23:59 EDT Hospital Encounter [facility] [address] [place] [address] Unknown, Provider, Discharge Disposition: Home or Self [...] on filedocumented in this encounter Care Teams Endoscopy Specialty Technician Relationship Specialty Start Date End Date Rolando Zacarias MD [address] [place] [address] PCP - General 12/17/11 10/29/16 documented as of this encounter
--- OUTSIDE RECORDS SUMMARY | 2023-12-28 06:40 | XMS_ITS | Encounter Summary ---
Author Organization [facility] [place] [address] Care Team Providers Care Plate Fitter Name Role Phone Rolando Moise MD Primary Care Provider [phone] Reason for Referral * Diagnostic Test (Routine) - Authorized Specialty Diagnoses / Procedures Referred By Teodoro robertson Referred To Contact Radiology Diagnoses Infrarenal abdominal aortic aneurysm (AAA) without rupture Procedures CT Angiogram Abdomen & Pelvis w Contrast (Generic) Pascale Barboza APRN [facility] [place] [address] [facility] [place] [address] Referral ID Status Reason Start Date Expiration Date Visits Requested Visits Authorized [id number] Authorized Specialty Service Requested 06/16/2023 12/14/2024 1 1 Encounter Details Date Type Department Care Team (Late st Contact Info) Description 06/16/2023 Orders [place] [address] Pascale Barboza APRN [facility] [place] [address] Infrarenal abdominal aortic aneurysm (AAA) [...] 1:30 PM EDT Laboratory Appointment Lab [address] [place] [address] 01/02/2024 3:00 PM EDT Office Visit [place] [address] Adam Costa MD [facility] [place] [address] Scheduled Orders Name Type Priority Associated Diagnoses Orde r Schedule CT Angiogram Abdomen & Pelvis w Contrast (Generic) Imaging Routine Infrarenal abdominal aortic aneurysm (AAA) without rupture Expected: 07/15/2023, Expires: 06/16/2024 documented as of this encounter Visit Diagnoses Diagnosis Infrarenal abdominal aortic aneurysm (AAA) without rupture documented in this encounter Care Teams Plate Fitter Relationship Specialty Start Date End Date Rolando Moise MD [address] [place] [address] PCP - General Family Medicine 09/16/16 documented as of this encounter
--- OUTSIDE RECORDS SUMMARY | 2023-12-28 06:40 | XMS_ITS | Encounter Summary ---
Author Organization [facility] Address [address] [place] [address] Care Team Providers Care Telecommunications Network Planner Name Role Phone Rolando Moise MD Primary Care Provider [phone] Encounter Details Date Type Department Care Team (Late st Contact Info) Description 06/06/2020 Lab Requisition [facility] Pathology & Laboratory Medicine - [address] [address] Outr Resulting Lab, Provider Social [...] 19 - 88 pg/mL 06/07/2020 8:52 EST [facility] Blood VENOUS BLOOD / Unknown 06/06/2020 10:30 EST 06/06/2020 19:30 EST Provider Outr Resulting Lab CHEMISTRY & BLOOD GAS ORDERABLES [facility] [address] [place] [address] documented in this encounter Visit Diagnoses Not on filedocumented in this encounter Care Teams Telecommunications Network Planner Relationship Specialty Start Date End Date Rolando Moise MD [address] [place] [address] PCP - General 10/30/16 documented as of this encounter
--- OUTSIDE RECORDS SUMMARY | 2023-12-28 06:40 | XMS_ITS | Encounter Summary ---
Author Organization [facility] Address [address] [place] [address] Care Team Providers Care Draw Bench Operator Helper Name Role Phone Rolando Moise MD Primary Care Provider [phone] Reason for Visit * (Routine) - Receiving Office to Obtain Authorization Specialty Diagnoses / Procedures Referred By Teodoro robertson Referred To Contact Procedures CT OUTSIDE IMAGES BODY Unknown, Provider, Referral ID Status Reason Start Date Expiration Date Visits Requested Visits Authorized [id number] Receiving Office to Obtain Authorization 11/07/2020 1 1 Encounter Details Date Type Department Care Team (Latest Contact Info) Description 11/07/2020 12:01 EDT - 11/07/2020 23:59 EDT Hospital Encounter [facility] [place] Discharge Disposition: Home [...] on filedocumented in this encounter Care Teams Draw Bench Operator Helper Relationship Specialty Start Date End Date Rolando Moise [place] [address] [place] [address] PCP - General 10/30/16 documented as of this encounter
--- OUTSIDE RECORDS SUMMARY | 2023-12-28 06:40 | XMS_ITS | Encounter Summary ---
Author Organization [facility] Address [address] [place] [address] Care Team Providers Care Identity Access Management Architect Name Role Phone Unavailable Primary Care Provider Unavailabl e Encounter Details Date Type Department Care Team (Late st Contact Info) Description 12/12/2011 Results Only [facility] Laboratory Services - [facility] [address] [place] [phone] Sharif Salcedo MD [address] [place] [id number] Social History Tobacco Use Types Packs/Day Years [...] ? CALI THOMPSON ? Accession #: ? [id number] ? : ? 1935 (Age: 76) ??M ? Collect Date: ? 12/12/2011 ? Location: ? [facility] ? Receive Date: ? 12/13/2011 ? Provider: SHARIF SALCEDO MD Copy to: ARELY VICKERS MD ? Final Pathologic Diagnosis: ? Colon, 35 cm, biopsy: - Cauterized colonic tissue, favor hyperplastic polyp. ??See comment. Comment: ? Deeper sections have been examined. ??(Dr. Bal)/[facility] Document reviewed and electronically signed by: [facility] Report ??Date: 12/17/2011 13:24 By the [...] in toto in a single cassette. ??(Tiffanie Prieto)/[facility] End of Report [facility] 12/12/2011 12/13/2011 8:1 7 EDT Sharif Salcedo MD PATHOLOGY ORDERABLE S [facility] [address] [place] [address] documented in this encounter Visit Diagnoses Not on filedocumented in this encounter
--- OUTSIDE RECORDS SUMMARY | 2023-12-28 06:40 | XMS_ITS | Encounter Summary ---
Author Organization [facility] Address [address] [place] [address] Care Team Providers Care Paramedic Rn Name Role Phone Arely Moise MD Primary Care Provider [phone] Encounter Details Date Type Department Care Team (Late st Contact Info) Description 07/19/2018 Results Only [facility] [phone] Aga Reynaga MD [address] [place] [address] Social History Tobacco Use Types [...] ? CALI THOMPSON ? Accession #: ? [id number] ? : ? 1935 (Age: 82) ??M [...] folds. The uninvolved serosa is unremarkable. ? Transportation Logistics Internship sections are submitted as follows: BLOCK MOREJON 1- ??proximal margin including diverticula 2- ??distal margin 3-4- ??area of perforation site, full thickness, bisected 5-6- ??area of perforation site, full thickness, bisected 7- ??diverticula Dr. Goode 07/21/2018 1:42 PM End of Report [facility] 07/19/2018 11:1 2 EDT 07/20/2018 11:12 EDT Aga Reynaga MD PATHOLOGY ORDERA JAZZY [facility] [address] [place] [address] documented in this encounter Visit Diagnoses Not on filedocumented in this encounter Care Teams Paramedic Rn Relationship Specialty Start Date End Date Arely Moise [place] [address] [place] [address] PCP - General 10/30/16 documented as of this encounter
--- OUTSIDE RECORDS SUMMARY | 2023-12-28 06:40 | XMS_ITS | Referral Summary ---
Author Organization [facility] Address [address] [place] [address] Care Team Providers Care Associate Research Scientist Name Role Phone Rolando Moise MD Primary Care Provider Encounters Date Type Department Care Team Description 10/10/2023 Lab Requisition [facility] Pathology & Laboratory [address] [address] Outr Resulting Lab, Provider 10/06/2023 Lab Requisition [facility] Pathology & Laboratory [address] [address] Outr Resulting Lab, Provider from Last 3 [...] Lyme Ab Negative Negative 10/13/2023 13:01 EDT [facility] Blood VENOUS BLOOD / Unknown 10/09/2023 14:15 EDT 10/10/2023 17:29 EDT Provider Outr Resulting Lab IMMUNOLOGY A ND SEROLOGY ORDERABLES [facility] [address] [place] [address] from Last 3 Months Care Teams Associate Research Scientist Relationship Specialty Start Date End Date Rolando Moise MD [address] [place] [address] PCP - General 10/30/16
--- OUTSIDE RECORDS SUMMARY | 2023-12-28 06:40 | XMS_ITS | Encounter Summary ---
Author Organization [facility] Address [address] [place] [address] Care Team Providers Care Wrapper Caser Name Role Phone Rolando Moise MD Primary Care Provider Encounter Details Date Type Department Care Team (Late st Contact Info) Description 07/22/2022 Lab Requisition [facility] Pathology & Laboratory Medicine - [address] [address] Outr Resulting Lab, Provider Social [...] 19 - 88 pg/mL 07/22/2022 22:48 EDT [facility] Blood VENOUS BLOOD / Unknown 07/22/2022 11:00 EDT 07/22/2022 21:28 EDT Provider Outr Resulting Lab CHEMISTRY & BLOOD GAS ORDERABLES [facility] [address] [place] [address] documented in this encounter Visit Diagnoses Not on filedocumented in this encounter Care Teams Wrapper Caser Relationship Specialty Start Date End Date Rolando Moise MD [facility] [place] [address] PCP - General 10/30/16 documented as of this encounter
--- OUTSIDE RECORDS SUMMARY | 2023-12-28 06:41 | XMS_ITS | Encounter Summary ---
Author Organization [facility] [place] [address] Care Team Providers Care Poultry Husbandman Name Role Phone Rolando Moise MD Primary Care Provider [phone] Encounter Details Date Type Department Care Team (Late st Contact Info) Description 07/18/2018 11:05 AM EDT Ancillary Procedure [place]iology [place] [phone] Lisa Alan MD [facility] [place] [address] Social History Tobacco Use Types Packs/Day Years [...] 1:30 PM EDT Laboratory Appointment Lab [address] [place] [address] 01/02/2024 3:00 PM EDT Office Visit [place] [address] Adam Costa MD [facility] NEPHROLOGY [place], [place] [phone] documented as of this encounter Procedures Procedure Name Priority Date/Time Associated Diagnosis Comments FILM LIBRARY STORAGE ONLY CT ABDOMEN AND PELVIS Routine 07/18/2018 11:01 AM EDT documented in this encounter Results * Film Library- Storage Only CT Abdomen & Pelvis (07/18/2018 11:01 AM EDT) Narrative [facility] - 07/18/2018 11:01 AM EDT This exam is auto-finalizing. It's purpose is for storage only. Lisa Infante MD IMTerrence FILM LIBRARY ORDERABLES Performing Organization Address City/State/[facility] Co de Phone Number [place], [place] documented in this encounter Visit Diagnoses Not on filedocumented in this encounter Care Teams Poultry Husbandman Relationship Specialty Start Date End Date Rolando Moise MD [address] [place] [address] PCP - General Family Medicine 09/16/16 documented as of this encounter
--- OUTSIDE RECORDS SUMMARY | 2023-12-28 06:41 | XMS_ITS | Encounter Summary ---
Author Organization [facility] Address [facility] [place] [address] Care Team Providers Care Educational/Development Assistant Name Role Phone Rolando Moise MD Primary Care Provider [phone] Reason for Visit * Reason Comments Follow-up Encounter Details Date Type Department Care Team (Late st Contact Info) Description 03/10/2017 2:00 PM EST Office Visit Cardiology at [address] [phone] Shoshana Moyer APRN [facility] [place] [address] Coronary artery disease, angina presence unspecified, unspecified vessel or lesion type, unspecified whether council or transplanted heart Social History Tobacco Use [...] from the original note were not included. [facility] [place] [address] General Cardiology Follow Up Subjective: Patient ID: [...] 01/02/2024 1:30 PM EDT Laboratory Appointment Lab [address] [address] 01/02/2024 3:00 PM EDT Office Visit Nephrology [place] [address] Adam Costa MD [facility] [place] [address] documented as of this encounter Procedures Procedure Name Priority Date/Time Associated Diagnosis Comments EKG 12-LEAD Routine 03/10/2017 2:33 PM EST Coronary artery disease, angina presence unspecified, unspecified vessel or lesion type, unspecified whether council or transplanted heart documented in this encounter Results * EKG 12 Lead (03/10/2017 2:33 PM EST) Ventricular rate 71 BPM MUSE SYSTEM Atrial Rate 71 BPM MUSE SYSTEM P-R Interval 226 ms MUSE SYSTEM QRS Duration 92 ms MUSE SYSTEM Q-T Interval 414 ms MUSE SYSTEM QTC Calculated (Bezet) 449 ms MUSE SYSTEM Calculated P [place] 19 degrees MUSE SYSTEM Calculated R [place] 134 degrees MUSE SYSTEM Calculated T [place] 135 degrees MUSE SYSTEM INTERPRETATION Sinus rhythm [...] unspecified vessel or lesion type, unspecified whether council or transplanted heart documented in this encounter Care Teams Educational/Development Assistant Relationship Specialty Start Date End Date Rolando Moise MD [address] [place] [address] PCP - General Family Medicine 09/16/16 documented as of this encounter
--- OUTSIDE RECORDS SUMMARY | 2023-12-28 06:41 | XMS_ITS | Encounter Summary ---
Author Organization [facility] [place] [address] Care Team Providers Care Book Editor Name Role Phone Rolando Moise MD Primary Care Provider [phone] Encounter Details Date Type Department Care Team (Late st Contact Info) Description 11/07/2020 4:20 AM EDT Ancillary Procedure [place] [phone] Rolando Moise MD [facility] [place] [phone] Social History Tobacco Use Types Packs/Day Years [...] 1:30 PM EDT Laboratory Appointment Lab [address] [place] [phone] 01/02/2024 3:00 PM EDT Office Visit [place] [phone] Adam Costa MD [facility] NEPHROLOGY [place], [place] [id number] documented as of this encounter Procedures Procedure Name Priority Date/Time Associated Diagnosis Comments FILM LIBRARY STORAGE ONLY CT CHEST ABDOMEN PELVIS Routine 11/07/2020 4:19 AM EDT documented in this encounter Results * Film Library- Storage Only CT Chest Abdomen Pelvis (11/07/2020 4:19 AM EDT) Narrative [facility] - 11/07/2020 4:19 AM EDT This exam is auto-finalizing. It's purpose is for storage only. Rolando Moise MD IMG FILM LIBRARY ORD ERABLES Performing Organization Address City/State/[facility] Co de Phone Number [place], [place] documented in this encounter Visit Diagnoses Not on filedocumented in this encounter Care Teams Book Editor Relationship Specialty Start Date End Date Rolando Moise MD [address] [place] [address] PCP - General Family Medicine 09/16/16 documented as of this encounter
--- OUTSIDE RECORDS SUMMARY | 2023-12-28 06:41 | XMS_ITS | Encounter Summary ---
Author Organization [facility] Address [facility] [place] [address] Care Team Providers Care Plastic Shaper Name Role Phone Rolando Moise MD Primary Care Provider [phone] Reason for Visit * Auth/Cert Specialty Diagnoses / Procedures Referred By Teodoro t Referred To Contact Diagnoses Chest pain nstemi Referral ID Status Reason Start Date Expiration Date Visits Re quested Visits Authorized [id number] 1 1 Encounter Details Date Type Department Care Team (Latest Contact Info) Description 11/07/2020 6:46 AM EDT - 11/09/2020 3:30 PM EDT Hospital Encounter [place] [id number] Maximino Mcallister MD [facility] [place] [address] Chest pain, unspecified type; Abdominal aortic aneurysm [...] Cesar Thompson Patient Age: 84 y.o. Language: Zambian Race: White Ethnicity: Not nor Admit date: [...] please contact your inpatient physician through the [facility] . Issues afterhours and on weekends will [...] who have questions please contact the health lawn care worker that requested your imaging first. Electronically signed by: Tyrone Jones MD, [facility] ([phone]), at 11/07/2020 8:[address] Angiogram Chest Abdomen Pelvis w Contrast (Exam End: 11/07/2020 10:10 AM) Impression 1. 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 2. 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 No direct endoleak noted, however, increase in the greatest dimensions of the [place] aneurysm sac of indeterminate etiology. The endograft is widely patent Thank you for letting us participate in the care of this patient. If you are a health care provider and have any questions regarding this report, please contact the number below. For patients who have questions please contact the health lawn care worker that requested your imaging first. Electronically signed by: Isac Smith MD, [facility] ([phone]), at 11/07/2020 11:03 AM NM Lung Perfusion [...] who have questions please contact the health lawn care worker that requested your imaging first. Electronically signed by: Migue Francisco MD, [facility] ([phone]), at 11/07/2020 4:42 PM Pending Studies and [...] gauge x 5/16 Syrg 1 Box by [facility]Non-Drug; Combo Route) route as needed. 1 Box [...] be able to get care/medications through the [place] system if you apply for it. - [...] appointments: During 8am-5pm Friday through Friday call [phone] to speak with a nurse in the cardiology clinic All other times call [phone] and ask to speak to the ice delivery driver senior python developer. What activities can you do, and what [...] the hospital? Maximino Mcallister MD - Attending Portable Canteen Operator When do I see my doctors next? No future appointments. You will need to follow up with your PCP (Rolando Moise MD at [phone]) within 1 week of discharge - scheduled for FridayNovember 15 @3:40PM You will need to follow up with your Portable Canteen Operator - FridayNovember 28 @1pm - You will go to the 3rd floor [facility] For questions regarding issues relating to your hospitalization on the Cardiology Service, please contact your inpatient physician through the [facility] ([phone] and ask for pager #[phone]. Issues after hours and on weekends will be handled by the Cardiology staff on-call. General Instructions None Provider Contact Information: MD [address] / [place] [id number] Discharge References/Attachments Diabetes: Blood Sugar Emergencies (Zambian) Diabetes: Home Blood Sugar Test (Zambian) Diabetes: Single-Dose Insulin Shot (Zambian) Beta-Blockers (Zambian) Rhythm-Control Medicines: General Info (Zambian) documented in this encounter Discharge Instructions * [...] be able to get care/medications through the [place] system if you apply for it. - [...] appointments: During 8am-5pm Friday through Friday call [phone] to speak with a nurse in the cardiology clinic All other times call [phone] and ask to speak to the ice delivery driver senior python developer. What activities can you do, and what [...] the hospital? Maximino Mcallister MD - Attending Portable Canteen Operator When do I see my doctors next? No future appointments. You will need to follow up with your PCP (Rolando Moise MD at [phone]) within 1 week of discharge - scheduled for FridayNovember 15 @3:40PM You will need to follow up with your Portable Canteen Operator - FridayNovember 28 @1pm - You will go to the 3rd floor [facility] For questions regarding issues relating to your hospitalization on the Cardiology Service, please contact your inpatient physician through the [facility] [phone] and ask for pager #[phone]. Issues after hours and on weekends will be handled by the Cardiology staff on-call. * Attachments The following attachments cannot be sent through Care Everywhere. * Diabetes: Blood Sugar Emergencies (Zambian) * Diabetes: Home Blood Sugar Test (Zambian) * Diabetes: Single-Dose Insulin Shot (Zambian) * Beta-Blockers (Zambian) * Rhythm-Control Medicines: General Info (Zambian) documented in this encounter Medications at Time [...] gauge x 5/16 Syringe 1 Box by [facility]Non-Drug; Combo Route) route as needed. 90 Syringe [...] increase in the greatest dimensions of the [place] aneurysm sac of indeterminate etiology. The endograft [...] medication assistance. His partner, Montse, came to [facility] this morning to meet with the team and understand the plan. We upped his insulin dosage yesterday with better computer terminal operator coverage and his glucose control has [...] Sang P[place] C[place], GSOMIII Cardiology S2 (Pager [phone]) Associated attestation - Maximino Mcallister MD - [...] PCP: Rolando Moise MD PCP phone number: [phone] Date of Admission: 11/07/2020 ( Hospital Day 2 days ) Attending:Maximino Mcallister MD ID: Cesar Thompson is a 84 y.o. male w/ PMH of CAD??c/b NSTEMI s/p MINNIE to mLAD and oDiag1 (02/2017), Ischemic myopathy (LV EF 35% after NE to 60% 09/2017),??AAA s/p??endovascular??repair??(04/2011) and DMII, on [...] to set up home insulin. This AM: [place] well, no recurrence of chest pain -- [...] Telemetry: Normal Sinus rhythm 50-70's (A fib [id number]) Intake/Output Summary (Last 24 hours) at 11/09/2020 [...] Gas) No results found for: PHART, PO2ART, ANV6SBY, OIP1UHI Microbiology: Microbiology Results (Last 30 days) No [...] who have questions please contact the health lawn care worker that requested your imaging first. Electronically signed by: Tyrone Jones MD, [facility] ([phone]), at 11/07/2020 8:[address] Angiogram Chest Abdomen Pelvis w Contrast (Exam End: 11/07/2020 10:10 AM) Impression 1. 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 2. 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 No direct endoleak noted, however, increase in the greatest dimensions of the [place] aneurysm sac of indeterminate etiology. The endograft is widely patent Thank you for letting us participate in the care of this patient. If you are a health care provider and have any questions regarding this report, please contact the number below. For patients who have questions please contact the health lawn care worker that requested your imaging first. Electronically signed by: Isac Smith MD, [facility] ([phone]), at 11/07/2020 11:03 AM NM Lung Perfusion [...] who have questions please contact the health lawn care worker that requested your imaging first. Electronically signed by: Migue Francisco MD, [facility] ([phone]), at 11/07/2020 4:42 PM Medications Scheduled Meds: [...] oDiag1 (02/2017), ICM (LV EF 35% after NE to 60% 09/2017),??AAA s/p??endovascular??repair??(04/2011) on HD# 2 [...] 02/2017), ischemic cardiomyopathy (LV EF 35% after NE to 60% 09/2017), AAA s/p endovascular repair [...] (11/07/20 1730) ??? AMIOdarone 0.5 mg/min (11/08/20 8042) Scheduled Meds: ??? sodium chloride 0.9 % [...] increase in the greatest dimensions of the [place] aneurysm sac of indeterminate etiology. The endograft [...] 02/2017), ischemic cardiomyopathy (LV EF 35% after NE to 60% 09/2017), AAA s/p endovascular repair [...] ?? Sang Cota, GSOMIII Cardiology S2 (Pager [phone]) * Adam Fuchs MD - 11/08/2020 5:27 AM EDT Images from the original note were not included. Inpatient Cardiology Progress Note Patient info: Name: Cesar Thompson : 1935 PCP: Rolando Moise MD PCP phone number: [phone] Date of Admission: 11/07/2020 ( Hospital Day 1 day ) Attending:Maximino Mcallister MD ID: Cesar Thompson is a 84 y.o. male w/ PMH of CAD??c/b NSTEMI s/p MINNIE to mLAD and oDiag1 (02/2017), Ischemic myopathy (LV EF 35% after NE to 60% 09/2017),??AAA s/p??endovascular??repair??(04/2011 on Hospital Day1 for acute tearing chest pain to back. 24 Hour Events/Subjective: Yesterday: CT aorta ruled out dissection V/Q scan no perfusion defects Started on heparin drip + DAPT Converted to sinus from a fib on diltiazem drip Started on amiodarone to keep in sinus -- Overnight: -- This AM:[place] well, no recurrence of chest pain -- [...] Gas) No results found for: PHART, PO2ART, BTT2RLO, [id number] Microbiology: Microbiology Results (Last 30 days) No [...] who have questions please contact the health lawn care worker that requested your imaging first. Electronically signed by: Tyrone Jones MD, [facility] ([phone]), at 11/07/2020 8:[address] Angiogram Chest Abdomen Pelvis w Contrast (Exam End: 11/07/2020 10:10 AM) Impression 1. 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 2. 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 No direct endoleak noted, however, increase in the greatest dimensions of the [place] aneurysm sac of indeterminate etiology. The endograft is widely patent Thank you for letting us participate in the care of this patient. If you are a health care provider and have any questions regarding this report, please contact the number below. For patients who have questions please contact the health lawn care worker that requested your imaging first. Electronically signed by: Isac Smith MD, [facility] ([phone]), at 11/07/2020 11:03 AM NM Lung Perfusion [...] who have questions please contact the health lawn care worker that requested your imaging first. Electronically signed by: Migue Francisco MD, [facility] ([phone]), at 11/07/2020 4:42 PM Medications Scheduled Meds: [...] oDiag1 (02/2017), ICM (LV EF 35% after NE to 60% 09/2017),??AAA s/p??endovascular??repair??(04/2011) on HD# 2 [...] PCP: Rolando Moise MD PCP phone number: [phone] Date of Admission: 11/07/2020 ( Hospital Day 0 days ) Attending:Maximino Mcallister MD ID: Cesar Thompson is a 84 y.o. male w/ PMH of CAD c/b NSTEMI s/p MINNIE to mLAD and oDiag1 (02/2017),ICM (LV EF 35% after NE to 60% 09/2017), AAA s/p endovascular repair [...] AN[facility]UR[facility], [facility] ??? PRO AAA REPAIR, 1ST VESSEL, EXTENSION PROSTH 04/12/2011 @EVG-PLACEMENT, CUFF OR EXT. AORTIC OR ILIAC ANEURYSM REPAIR, GORE performed by ACACIA BRYANT at [facility] OR ??? PRO AAA REPAIR, MODULR BIFUR PROSTH, 2-DOCK 04/12/2011 @EVG, AAA, W\ MODULAR BIFURCATED PROS. W\ 2 DOCKING LIMBS performed by ACACIA BRYANT at [facility] OR ??? PRO AAA REPR, EXPOSE FEMORAL ART, GROIN INCIS 04/12/2011 @EXPOSURE, OPEN FEM. ARTERY FOR ENDOVASCULAR PROSTHESIS, GROIN-FABIANA performed by ACACIA BRYANT at [facility] OR ? ? PRO ENDOVASC REPAIR INFRARENAL AAA/DISSECTION S&I 04/12/2011 @EVG, INFRARENAL AAA OR DISSECTION, S&I performed by ACACIA BRYANT at [facility] OR Family History No [...] Gas) No results found for: PHART, PO2ART, MYH6PTZ, OSC0XHA Microbiology: Microbiology Results (Last 30 days) No [...] who have questions please contact the health lawn care worker that requested your imaging first. Electronically signed by: Tyrone Jones MD, [facility] ([phone]), at 11/07/2020 8:[address] Angiogram Chest Abdomen Pelvis w Contrast (Exam End: 11/07/2020 10:10 AM) Impression 1. 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 2. 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 No direct endoleak noted, however, increase in the greatest dimensions of the [place] aneurysm sac of indeterminate etiology. The endograft is widely patent Thank you for letting us participate in the care of this patient. If you are a health care provider and have any questions regarding this report, please contact the number below. For patients who have questions please contact the health lawn care worker that requested your imaging first. Electronically signed by: Isac Smith MD, [facility] ([phone]), at 11/07/2020 11:03 AM Medications Scheduled Meds: [...] and oDiag1 (02/2017), ICM(LV EF 35% after NE to 60% 09/2017), AAA s/p endovascular repair [...] Insurance: AARP SUPPLEMENT Prescription Coverage: Yes - [employer] Preferred Pharmacy: [id number] - [place], [place] - [address] [place] [address] AT [address] [facility] [address] [place] [id number] This plan was formulated with input from patient, and team. All are in agreement with plan. Penny Bee RN, MSN Commercial Energy Auditor - Cardiology Office of Care Management Pager: [phone] * Care Management - Penny Bee RN [...] Insurance: AARP SUPPLEMENT Prescription Coverage: Yes - [facility] [place] [facility] [employer] Preferred Pharmacy: [id number] [place], [place] - [address] [place] [address] AT [address] [facility] [address] [phone] Plan for discharge is: Home w/o Services [...] at 11:00 PM Penny Bee RN, MSN Commercial Energy Auditor - Cardiology Office of Care Management Pager: [phone] * Initial Assessments - Penelope Castle RN [...] DPOA, however, none are on file at [facility]) If AD's have not been completed pts adult children would be DPOA. He has s/o , Montse who is emergency contact, would be surrogate decision maker per [place] surrogate decision making law. (Only good for 90 days) Any patient receiving care at [facility] must abide by [place] law. The hierarchy for surrogate decision making [...] (i) The agent with financial power of patent attorney or a conservator appointed in accordance [...] Home Address confirmed as: [address] [facility] [address] Social & Family Supports: All names listed below confirmed with patient as current and correct Extended Emergency Contact Information Primary Emergency Contact: Montse De Anda Address: [address] [place], [place] [id number] [place] [address] Relation: Friend Current Care Provided by: self [...] AARP SUPPLEMENT Prescription Coverage: Yes Preferred Pharmacy: [id number] [place], [place] - [address] [place] [address] AT [address] [facility] [address] [facility] [address] [place] Status: Patient is a : Yes Are you enrolled in the VA for your healthcare?: No Primary Care Provider: Rolando Moise MD [phone] Patient/Caregiver Goals of Treatment: dc to home [...] of care planning. Penelope Castle RN Ext [phone] Pager [phone] * Plan of Care - Marilyn Condon [...] EDT Laboratory Appointment Lab [address] [place] [address] 01/02/2024 3:00 PM EDT Office Visit Ne[place] [address] Adam Costa MD [facility] [place] [address] documented as of this encounter Procedures Procedure [...] Glucose, POC 198 65 - 199 mg/dL [facility] Comment: Supplemental ranges: <140 mg/dL before meals <180 mg/dL all other times of the day Blood 11/09/2020 11:2 7 AM EDT 11/09/2020 11:27 AM EDT Maximino Mcallister MD POINT OF CARE TEST ORDERABLES [facility] [place] [address] * POCT Glucose (11/09/2020 7:44 AM EDT) Glucose, POC 183 65 - 199 mg/dL [facility] Comment: Supplemental ranges: <140 mg/dL before meals <180 mg/dL all other times of the day Blood 11/09/2020 7:44 AM EDT 11/09/2020 7:44 AM EDT Maximino Mcallister MD POINT OF CARE TEST ORDERABLES [facility] [place] [address] * (ABNORMAL) BMP w/fasting Glucose (11/09/2020 6:57 AM EDT) Glucose Fasting 196(H) 65 - 99 mg/dL [facility] Comment: ?Fasting* Glucose Interpretive [...] of Diabetes Mellitus, Position Statement from the [place] [employer]. ??Diabetes Care, Volume 33, Supplement 1, May 2009 Blood Urea Nitrogen 26(H) 10 - 20 mg/dL [facility] Creatinine 1.64(H) 0.80 - 1.50 mg/dL [facility] Sodium 136 135 - 145 mmol/L [facility] Potassium 4.2 3.5 - 5.0 mmol/L [facility] Comment: Please note: ??Patients with WBC >100,000 may have falsely elevated Potassium levels. ??For accurate Potassium quantification in these patients send serum separator tube (gold top) for subsequent determinations. ??Contact the Clinical Chemistry Laboratory if there are any questions. Chloride 102 98 - 107 mmol/L [facility] Carbon Dioxide 23 22 - 31 mmol/L [facility] Anion Gap 11 5 - 15 mmol/L [facility] Calcium 8.8 8.5 - 10.5 mg/dL [facility] Est Glomerular Filtration Rate 38(L) >=60 mL/min/1. 73 m?? [facility] Comment: This patient? s [...] MD CHEMISTRY ORDERABL ES Performing Organization Address City/[facility]/ZIP Co de Phone Number [facility] [place] [address] * POCT Glucose (11/09/2020 3:09 AM EDT) Glucose, POC 174 65 - 199 mg/dL [facility] Comment: Supplemental ranges: <140 mg/dL before meals <180 mg/dL all other times of the day Blood 11/09/2020 3:09 AM EDT 11/09/2020 3:09 AM EDT Maximino Mcallister MD POINT OF CARE TEST ORDERABLES [facility] [place] [address] * POCT Glucose (11/09/2020 12:44 AM EDT) Glucose, POC 152 65 - 199 mg/dL [facility] Comment: Supplemental ranges: <140 mg/dL before meals <180 mg/dL all other times of the day Blood 11/09/2020 12:4 4 AM EDT 11/09/2020 12:44 AM EDT Maximino Mcallister MD POINT OF CARE TEST ORDERABLES Performing Organization Address [facility] Co de Phone Number [facility] [place] [address] * (ABNORMAL) POCT Glucose (11/08/2020 8:27 PM EDT) Glucose, POC 225(H) 65 - 199 mg/dL [facility] Comment: Supplemental ranges: <140 mg/dL before meals <180 mg/dL all other times of the day Blood 11/08/2020 8:27 PM EDT 11/08/2020 8:27 PM EDT Maximino Mcallister MD POINT OF CARE TEST ORDERABLES Performing Organization Address [facility] Co de Phone Number [facility] [place] [address] * Electrolytes panel (11/08/2020 5:07 PM EDT) Pathologist [facility] Sodium 137 135 - 145 mmol/L [facility] Potassium 4.4 3.5 - 5.0 mmol/L [facility] Comment: Please note: ??Patients with WBC >100,000 may have falsely elevated Potassium levels. ??For accurate Potassium quantification in these patients send serum separator tube (gold top) for subsequent determinations. ??Contact the Clinical Chemistry Laboratory if there are any questions. Chloride 100 98 - 107 mmol/L [facility] Carbon Dioxide 25 22 - 31 mmol/L [facility] Anion Gap 12 5 - 15 mmol/L [facility] Blood 11/08/2020 5:07 PM EDT 11/08/2020 5:19 PM EDT Narrative Resulting Agency Comment Spec In Lab Maximino Mcallister MD CHEMISTRY ORDERABL ES Performing Organization Address [facility] Co de Phone Number [facility] [place] [address] * POCT Glucose (11/08/2020 5:06 PM EDT) Glucose, POC 161 65 - 199 mg/dL [facility] Comment: Supplemental ranges: <140 mg/dL before meals <180 mg/dL all other times of the day Blood 11/08/2020 5:06 PM EDT 11/08/2020 5:06 PM EDT Maximino Mcallister MD POINT OF CARE TEST ORDERABLES Performing Organization Address [facility] Co de Phone Number [facility] [place] [address] * (ABNORMAL) POCT Glucose (11/08/2020 2:50 PM EDT) Glucose, POC 265(H) 65 - 199 mg/dL [facility] Comment: Supplemental ranges: <140 mg/dL before meals <180 mg/dL all other times of the day Blood 11/08/2020 2:50 PM EDT 11/08/2020 2:50 PM EDT Maximino Mcallister MD POINT OF CARE TEST ORDERABLES Performing Organization Address [facility] Co de Phone Number [facility] [place] [address] * (ABNORMAL) POCT Glucose (11/08/2020 12:03 PM EDT) Glucose, POC 305(H) 65 - 199 mg/dL [facility] Comment: Supplemental ranges: <140 mg/dL before meals <180 mg/dL all other times of the day Blood 11/08/2020 12:0 3 PM EDT 11/08/2020 12:03 PM EDT Maximino Mcallister MD POINT OF CARE TEST ORDERABLES Performing Organization Address [facility] Co de Phone Number [facility] [place] [address] * (ABNORMAL) POCT Glucose (11/08/2020 10:16 AM EDT) Glucose, POC 302(H) 65 - 199 mg/dL [facility] Comment: Supplemental ranges: <140 mg/dL before meals <180 mg/dL all other times of the day Blood 11/08/2020 10:1 6 AM EDT 11/08/2020 10:16 AM EDT Maximino Mcallister MD POINT OF CARE TEST ORDERABLES Performing Organization Address [facility] Co de Phone Number [facility] [place] [address] * (ABNORMAL) POCT Glucose (11/08/2020 7:40 AM EDT) Glucose, POC 255(H) 65 - 199 mg/dL [facility] Comment: Supplemental ranges: <140 mg/dL before meals <180 mg/dL all other times of the day Blood 11/08/2020 7:40 AM EDT 11/08/2020 7:40 AM EDT Maximino Mcallister MD POINT OF CARE TEST ORDERABLES Performing Organization Address [facility] Co de Phone Number [facility] [place] [address] * (ABNORMAL) POCT Glucose (11/08/2020 5:03 AM EDT) Glucose, POC 236(H) 65 - 199 mg/dL [facility] Comment: Supplemental ranges: <140 mg/dL before meals <180 mg/dL all other times of the day Blood 11/08/2020 5:03 AM EDT 11/08/2020 5:03 AM EDT Maximino Mcallister MD POINT OF CARE TEST ORDERABLES Performing Organization Address City/[facility]/ZIP Co de Phone Number [facility] [place] [address] * (ABNORMAL) Differential, Automated (11/08/2020 12:23 AM EDT) Neutrophil % 70.8 % [facility] Neutrophil Absolute 10.06(H) 1.70 - 6.10 x10(3)/ L [facility] Lymph % 17.5 % [facility] Lymphocytes Abs 2.5 0.9 - 3.2 x10(3)/ L [facility] Monocyte % 9.1 % [facility] Monocyte Abs 1.3(H) 0.3 - 0.9 x10(3)/ L [facility] Eos % 1.7 % [facility] Eosinophils Abs 0.2 0.0 - 0.4 x10(3)/[facility] Basophil % 0.5 % [facility] [facility] Baso Absolute 0.1 0.0 - 0.1 x10(3)/ L [facility] Immature Gran % 0.40 % [facility] Comment: Immature granulocytes(IG's)percentage and absolute count will include metamyelocytes, myelocytes, and promyelocytes. Blood smears from CBCs yielding IG's will be scanned manually for concordance. If this scan disagrees with the automated IG or if promyelocytes are noted, a manual differential will be performed. Immature Gran Absolute 0.05(H) 0.00 - 0.04 x10(3)/ L [facility] Blood 11/08/2020 12:2 3 AM EDT 11/08/2020 12:27 AM EDT Narrative Resulting Agency Comment Spec In Lab Adam Fuchs MD HEMATOLOGY ORDERABLE S Performing Organization Address City/[facility]/ZIP Co de Phone Number [facility] [place] [address] * (ABNORMAL) Hemogram (11/08/2020 12:23 AM EDT) White Blood Cell 14.2(H) 4.0 - 9.5 x10(3)/[facility] Red Blood Cell 4.59 4.58 - 5.54 x10(6)/[facility] Hemoglobin 14.2 13.7 - 16.5 gm/dL [facility] Hematocrit 42.2 40.5 - 48.5 % [facility] Mean Cell Volume 91.9 82.9 - 93.1 fL [facility] Mean Cell Hemoglobin 30.9 27.5 - 32.1 pg [facility] Mean Cell Hemoglobin Concentration 33.6 32.0 - 35.7 gm/dL [facility] Platelet 175 145 - 357 x10(3)/[facility] RDW Standard Deviation 39.8 36.0 - 45.0 [facility] RDW coefficient of variation 11.9 11.4 - 13.8 % [facility] Mean Platelet Volume 11.1 7.6 - 12.9 [facility] NRBC% auto 0.0 % [facility] NRBC Absolute 0.000 0.000 - 0.000 x10(3)/[facility] Blood 11/08/2020 12:2 3 AM EDT 11/08/2020 12:27 AM EDT Narrative Resulting Agency Comment Spec In Lab Adam Fuchs MD HEMATOLOGY ORDERABLE S [facility] [place] [address] * (ABNORMAL) BMP w/fasting Glucose (11/08/2020 12:23 AM EDT) Glucose Fasting 254(H) 65 - 99 mg/dL [facility] Comment: ?Fasting* Glucose Interpretive [...] of Diabetes Mellitus, Position Statement from the [place] [employer]. ??Diabetes Care, Volume 33, Supplement 1, May 2009 Blood Urea Nitrogen 23(H) 10 - 20 mg/dL [facility] Creatinine 1.80(H) 0.80 - 1.50 mg/dL [facility] Sodium 136 135 - 145 mmol/L [facility] Potassium 4.5 3.5 - 5.0 mmol/L [facility] Comment: Please note: ??Patients with WBC >100,000 may have falsely elevated Potassium levels. ??For accurate Potassium quantification in these patients send serum separator tube (gold top) for subsequent determinations. ??Contact the Clinical Chemistry Laboratory if there are any questions. Chloride 102 98 - 107 mmol/L [facility] Carbon Dioxide 22 22 - 31 mmol/L [facility] Anion Gap 12 5 - 15 mmol/L [facility] Calcium 8.8 8.5 - 10.5 mg/dL [facility] Est Glomerular Filtration Rate 34(L) >=60 mL/min/1. 73 m?? [facility] Comment: This patient? s [...] MD CHEMISTRY ORDERABL ES Performing Organization Address [facility] de Phone Number [facility] [place] [address] * Heparin (unfractionated) Level (11/08/2020 12:23 AM EDT) UF Heparin 0.42 IU/mL [facility] Comment: Guidelines for therapeutic [...] MD HEMATOLOGY ORDERAB LES Performing Organization Address [facility] Co de Phone Number [facility] [place] [address] * (ABNORMAL) POCT Glucose (11/07/2020 11:47 PM EDT) Glucose, POC 241(H) 65 - 199 mg/dL [facility] Comment: Supplemental ranges: <140 mg/dL before meals <180 mg/dL all other times of the day Blood 11/07/2020 11:4 7 PM EDT 11/07/2020 11:47 PM EDT Maximino Mcallister MD POINT OF CARE TEST ORDERABLES Performing Organization Address [facility] de Phone Number [facility] [place] [address] * (ABNORMAL) POCT Glucose (11/07/2020 8:24 PM EDT) Glucose, POC 304(H) 65 - 199 mg/dL [facility] Comment: Supplemental ranges: <140 mg/dL before meals <180 mg/dL all other times of the day Blood 11/07/2020 8:24 PM EDT 11/07/2020 8:24 PM EDT Maximino Mcallister MD POINT OF CARE TEST ORDERABLES Performing Organization Address [facility] de Phone Number [facility] [place] [address] * Heparin (unfractionated) Level (11/07/2020 6:36 PM EDT) UF Heparin 0.38 IU/mL [facility] Comment: Guidelines for therapeutic [...] Lab Maximino Mcallister MD HEMATOLOGY ORDERAB LES [facility] [place] [address] * (ABNORMAL) Troponin (11/07/2020 5:07 PM EDT) Troponin-T 0.02(H) 0.00 - 0.00 ng/mL [facility] Comment: The 99th percentile for Troponin T is less than 0.01 ng/mL, any detectable cTnT concentration using this assay should be considered elevated. According to the third universal definition of myocardial infarction the following criteria with a clinical presentation consistent with acute myocardial ischemia meets the diagnosis for a myocardial infarction (NE). Detection of a rise and/or fall of cTnT, with at least one value greater than the 99th percentile (> or = 0.01) and with at least one of the following ?? Symptoms of ischemia ?? New or presumed new significant ZB-lepsnwe-W wave (ST-T) changes or new left bundle [...] additional sample may be indicated. Reference: Third [place] Definition of Myocardial Infarction. Journal of the [place] [employer] 2012;60:1581-98 Blood 11/07/2020 5:07 PM EDT 11/07/2020 5:16 PM EDT Narrative Resulting Agency Comment Spec In Lab Maximino Mcallister MD CHEMISTRY ORDERABL ES Performing Organization Address [facility] Co de Phone Number [facility] [place] [address] * (ABNORMAL) Electrolytes panel (11/07/2020 5:07 PM EDT) Sodium 135 135 - 145 mmol/L [facility] Potassium 4.9 3.5 - 5.0 mmol/L [facility] Comment: Please note: ??Patients with WBC >100,000 may have falsely elevated Potassium levels. ??For accurate Potassium quantification in these patients send serum separator tube (gold top) for subsequent determinations. ??Contact the Clinical Chemistry Laboratory if there are any questions. Chloride 104 98 - 107 mmol/L [facility] Carbon Dioxide 20(L) 22 - 31 mmol/L [facility] Anion Gap 11 5 - 15 mmol/L [facility] Blood 11/07/2020 5:07 PM EDT 11/07/2020 5:16 PM EDT Narrative Resulting Agency Comment Spec In Lab Maximino Mcallister MD CHEMISTRY ORDERABL ES Performing Organization Address [facility] Co de Phone Number [facility] [place] [address] * (ABNORMAL) POCT Glucose (11/07/2020 5:05 PM EDT) Glucose, POC 339(H) 65 - 199 mg/dL [facility] Comment: Supplemental ranges: <140 mg/dL before meals <180 mg/dL all other times of the day Blood 11/07/2020 5:05 PM EDT 11/07/2020 5:05 PM EDT Maximino Mcallister MD POINT OF CARE TEST ORDERABLES Performing Organization Address [facility]/ZIP [place] [address] * NM Lung Perfusion Planar (11/07/2020 4:14 [...] who have questions please contact the health lawn care worker that requested your imaging first. ? Electronically signed by: Migue Francisco MD, [facility] ([phone]), at 11/09/2020 1:16 PM --------ORIGINAL REPORT -------- [...] who have questions please contact the health lawn care worker that requested your imaging first. ? Electronically signed by: Migue Francisco MD, [facility] ([phone]), at 11/07/2020 4:42 PM Addendum by Migue [...] who have questions please contact the health lawn care worker that requested your imaging first. ? Electronically signed by: Migue Francisco MD, [facility] ([phone]), at 11/07/2020 4:42 PM Impressions 11/07/2020 4:42 [...] who have questions please contact the health lawn care worker that requested your imaging first. ? Electronically signed by: Migue Francisco MD, [facility] ([phone]), at 11/07/2020 4:42 PM Narrative 11/07/2020 4:42 [...] patients who have questions please contactthe health lawn care worker that requested your imaging first. Electronically signed by: Migue Francisco MD, [facility]([phone]), at 11/07/2020 4:42 PM Maximino Mcallister MD [facility] ORDERABLES * ECHO COMPLETE (11/07/2020 11:24 AM EDT) Pathologist [facility] EF 50 HEARTLAB SYSTEM Anatomical Region Laterality Modality Other 11/07/2020 Narrative 11/07/2020 12:13 PM EDT Procedure: ?Transthoracic Echocardiogram Patient: ?EDD LEIVA D ?(Age): 1935(84y) Med Rec#: ? [id number] ?Sex: ?M ? Site Loc: ? [facility] ?Ht / Wt: ??178(cm)/88(kg) Pt. Loc: ?Adult Floor ? BSA: ?2.06 Study Date: ?? 11/07/2020 ?Pt. Type: Inpatient Tape: ? Referring: Maximino Mcallister ([id number]) Referring: [place] Reading: Eladio Willett ([id number]) Window Shade Installer: Moisés Estrella RDCS Diagnosis: *Chest pain, unspecified [...] ? Mid-Inferior ?Normal ? Mid-Inferoseptal ?Normal ? [place]-Septal ? Normal ? [place]-Anterior ? Normal ? [place]-Lateral ?Normal ? [place]-Inferior ? Normal ? [place]-Tip ?Normal ? This report has been electronically signed by: Eladio Willett M.D. ? 11/07/2020 12:13:06 Images reviewed and interpretation verified [facility] Cardiac Ultrasound Laboratory Procedure Note Eladio Willett MD - 11/07/2020 Procedure: Transthoracic Echocardiogram Patient: EDD Hatch (Age): 1935(84y) Med Rec#: [id number] Sex: M [place] [facility] Ht / Wt: 178(cm)/88(kg) Pt. Loc: Adult Floor BSA: 2.06 Study Date: 11/07/2020 Pt. Type: Inpatient Tape: Referring: Maximino Mcallister ([id number]) Referring: [place] Reading: Eladio Willett ([id number]) Window Shade Installer: Moisés Estrella [facility] Diagnosis: *Chest pain, unspecified (R07.9) *Abdominal aortic [...] Normal Mid-Posterolateral Normal Mid-Inferior Normal Mid-Inferoseptal Normal [place]-Septal Normal [place]-Anterior Normal [place]-Lateral Normal [place]-Inferior Normal [place]-Tip Normal This report has been electronically signed by: Eladio Gael Willett M.D. 11/07/2020 12:13:06 Images reviewed and interpretation verified [facility] Cardiac Ultrasound Laboratory Maximino Mcallister MD ECHO ORDERABLES * (ABNORMAL) Troponin (11/07/2020 11:18 AM EDT) Troponin-T 0.02(H) 0.00 - 0.00 ng/mL [facility] Comment: The 99th percentile for Troponin T is less than 0.01 ng/mL, any detectable cTnT concentration using this assay should be considered elevated. According to the third universal definition of myocardial infarction the following criteria with a clinical presentation consistent with acute myocardial ischemia meets the diagnosis for a myocardial infarction (NE). Detection of a rise and/or fall of cTnT, with at least one value greater than the 99th percentile (> or = 0.01) and with at least one of the following ?? Symptoms of ischemia ?? New or presumed new significant VH-yhlbwsq-C wave (ST-T) changes or new left bundle [...] additional sample may be indicated. Reference: Third [place] Definition of Myocardial Infarction. Journal of the [place] [employer] 2012;60:1581-98 Blood 11/07/2020 11:1 8 AM EDT 11/07/2020 12:02 PM EDT Narrative Resulting Agency Comment Spec In Lab Maximino Mcallister MD CHEMISTRY ORDERABL ES Performing Organization Address [facility] Co de Phone Number [facility] [place] [address] * EKG 12 Lead (11/07/2020 11:14 AM EDT) Ventricular rate 108 BPM MUSE SYSTEM QRS Duration 80 ms MUSE SYSTEM Q-T Interval 354 ms MUSE SYSTEM QTC Calculated (Bezet) 474 ms MUSE SYSTEM Calculated R [place] 43 degrees MUSE SYSTEM Calculated T [place] 101 degrees MUSE SYSTEM INTERPRETATION Atrial fibrillation with rapid ventricular response Nonspecific ST and T wave abnormality Abnormal ECG When compared with ECG of 10-MAR-2017 14:33, Atrial fibrillation has replaced Sinus rhythm Vent. 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 The endograft is widely patent Thank you for letting us participate in the care of this patient. ??If you are a health care provider and have any questions regarding this report, please contact the number below. ??For patients who have questions please contact the health lawn care worker that requested your imaging first. ? Electronically signed by: Isac Smith MD, [facility] ([phone]), at 11/07/2020 11:03 AM Narrative 11/07/2020 11:03 [...] arteries. No endoleak. The greatest dimensions of [place] aneurysm sac have increased, measuring 7.2 x [...] intravenous administration of contrast. 75 cc of [id number]. Maximum intensity projection (MIP) were reformatted. 3-D [...] arteries. No endoleak. The greatest dimensions of [place] aneurysmsac have increased, measuring 7.2 x 8.5 [...] however, increase in the greatestdimensions of the [place] aneurysm sac of indeterminate etiology. The endograft iswidely patent Thank you for letting us participate in the care of this patient. If youare a health care provider and have any questions regarding this report,please contact the number below. For patients who have questions please contactthe health lawn care worker that requested your imaging first. Electronically signed by: Isac Smith MD, [facility]([phone]), at 11/07/2020 11:03 AM Maximino Mcallister MD IMG CT ORDERABLES * (ABNORMAL) Hemoglobin A1c (11/07/2020 8:50 AM EDT) Hemoglobin A1c 11.3(H) 4.3 - 5.6 % [facility] Comment: Reference Range: 4.3 [...] Mellitus, Diabetes Care 2013; 36: Suppl. 1, L67-82 Estimated Average Glucose See note mg/dL [facility] Comment: Estimated Average Glucose [...] into estimated average glucose values. ??Diabetes Care 2008:31(8):6359-7153. Blood Venous Draw / Unknown 11/07/2020 8:50 AM EDT 11/07/2020 11:00 AM EDT Narrative Resulting Agency Comment Spec In Lab Evan Sinclair MD CHEMISTRY ORDERABLES Performing Organization Address City/State/[facility] Co de Phone Number [facility] [place] [address] * (ABNORMAL) Differential, Automated (11/07/2020 8:50 AM EDT) Neutrophil % 76.7 % [facility] Neutrophil Absolute 10.62(H) 1.70 - 6.10 x10(3)/mc L [facility] Lymph % 13.1 % [facility] Lymphocytes Abs 1.8 0.9 - 3.2 x10(3)/mc L [facility] Monocyte % 7.0 % [facility] Monocyte Abs 1.0(H) 0.3 - 0.9 x10(3)/mc L [facility] Eos % 2.2 % [facility] Eosinophils Abs 0.3 0.0 - 0.4 x10(3)/mc L [facility] Basophil % 0.6 % [facility] Baso Absolute 0.1 0.0 - 0.1 x10(3)/mc L [facility] Immature Gran % 0.40 % [facility] Comment: Immature granulocytes(IG's)percentage and absolute count will include metamyelocytes, myelocytes, and promyelocytes. Blood smears from CBCs yielding IG's will be scanned manually for concordance. If this scan disagrees with the automated IG or if promyelocytes are noted, a manual differential will be performed. Immature Gran Absolute 0.05(H) 0.00 - 0.04 x10(3)/mc L [facility] Blood 11/07/2020 8:50 AM EDT 11/07/2020 9:19 AM EDT Narrative Resulting Agency Comment Spec In Lab Evan Sinclair MD HEMATOLOGY ORDERABLE S [facility] [place] [address] * (ABNORMAL) Hemogram (11/07/2020 8:50 AM EDT) White Blood Cell 13.8(H) 4.0 - 9.5 x10(3)/mc L [facility] Red Blood Cell 4.87 4.58 - 5.54 x10(6)/mc L [facility] Hemoglobin 15.0 13.7 - 16.5 gm/dL [facility] Hematocrit 44.9 40.5 - 48.5 % [facility] Mean Cell Volume 92.2 82.9 - 93.1 fL [facility] Mean Cell Hemoglobin 30.8 27.5 - 32.1 pg [facility] Mean Cell Hemoglobin Concentration 33.4 32.0 - 35.7 gm/dL [facility] Platelet 171 145 - 357 x10(3)/mc L [facility] RDW Standard Deviation 40.0 36.0 - 45.0 fL [facility] RDW coefficient of variation 11.8 11.4 - 13.8 % [facility] Mean Platelet Volume 11.5 7.6 - 12.9 fL [facility] NRBC% auto 0.0 % [facility] NRBC Absolute 0.000 0.000 - 0.000 x10(3)/mc L [facility] Blood 11/07/2020 8:50 AM EDT 11/07/2020 9:19 AM EDT Narrative Resulting Agency Comment Spec In Lab Evan Sinclair MD HEMATOLOGY ORDERABLE S Performing Organization Address [facility] Co de Phone Number [facility] [place] [address] * (ABNORMAL) D-Dimer, Quantitative (11/07/2020 8:50 AM EDT) Pathologist [facility] D-Dimer 4,219(H) 0 - 500 FEU ng/ml [facility] Comment: The D-Dimer assay [...] MD HEMATOLOGY ORDERAB LES Performing Organization Address [facility] de Phone Number [facility] [place] [address] * APTT (11/07/2020 8:50 AM EDT) Pathologist [facility] Partial Thromboplastin Time 26 25 - 37 sec [facility] Comment: The PTT is NOT appropriate for heparin monitoring. Use the Anti-Xa level for heparin monitoring (HEP UFH) or LMWH monitoring (HEP LMW). A PTT less than 37 seconds generally indicates adequate hemostasis. Blood 11/07/2020 8:50 AM EDT 11/07/2020 9:19 AM EDT Narrative Resulting Agency Comment Spec In Lab Maximino Mcallister MD HEMATOLOGY ORDERAB LES Performing Organization Address [facility] de Phone Number [facility] [place] [address] * Prothrombin Time (11/07/2020 8:50 AM EDT) Prothrombin Time 10.5 9.4 - 12.5 sec [facility] International Normalization Ratio 0.9 [facility] Comment: An INR <2.0 [...] MD HEMATOLOGY ORDERAB LES Performing Organization Address [facility] de Phone Number [facility] [place] [address] * Hepatic Function Panel (11/07/2020 8:50 AM EDT) Pathologist [facility] Protein, Total 6.7 6.1 - 8.0 gm/dL [facility] Albumin 3.9 3.2 - 5.2 gm/dL [facility] Aspartate Aminotransferase 29 0 - 39 unit/L [facility] Alanine Aminotransferase 46 0 - 55 unit/L [facility] Alkaline Phosphatase 118 40 - 130 unit/L [facility] Bilirubin, Total 0.8 0.2 - 1.3 mg/dL [facility] Bilirubin, Direct 0.2 0.0 - 0.3 mg/dL [facility] Blood 11/07/2020 8:50 AM EDT 11/07/2020 9:19 AM EDT Narrative Resulting Agency Comment Spec In Lab Maximino Mcallister MD CHEMISTRY ORDERABL ES Performing Organization Address [facility]/ZIP Co de Phone Number [facility] [place] [address] * (ABNORMAL) pro-Brain Natriuretic Peptide (11/07/2020 8:50 AM EDT) NT-proBNP 488(H) <=449 pg/mL [facility] Blood 11/07/2020 8:50 AM EDT 11/07/2020 9:19 AM EDT Narrative Resulting Agency Comment Spec In Lab Maximino Mcallister MD CHEMISTRY ORDERABL ES Performing Organization Address [facility] Co de Phone Number [facility] [place] [address] * TSH (11/07/2020 8:50 AM EDT) Thyroid Stimulating Hormone 1.38 0.27 - 4.20 mcIU/mL [facility] Blood 11/07/2020 8:50 AM EDT 11/07/2020 9:19 AM EDT Narrative Resulting Agency Comment Spec In Lab Maximino Mcallister MD CHEMISTRY ORDERABL ES Performing Organization Address [facility] Co de Phone Number [facility] [place] [address] * Phosphorus (11/07/2020 8:50 AM EDT) Phosphorus 3.3 2.5 - 4.5 mg/dL [facility] Blood 11/07/2020 8:50 AM EDT 11/07/2020 9:19 AM EDT Narrative Resulting Agency Comment Spec In Lab Maximino Mcallister MD CHEMISTRY ORDERABL ES Performing Organization Address [facility] Co de Phone Number [facility] [place] [address] * Magnesium (11/07/2020 8:50 AM EDT) Magnesium 0.94 0.69 - 1.07 mmol/L [facility] Blood 11/07/2020 8:50 AM EDT 11/07/2020 9:19 AM EDT Narrative Resulting Agency Comment Spec In Lab Maximino Mcallister MD CHEMISTRY ORDERABL ES [facility] [place] [address] * (ABNORMAL) Basic Metabolic Panel (non-fasting) (11/07/2020 8:50 AM EDT) Glucose 405(H) 65 - 199 mg/dL [facility] Comment:Diabetes: >=200 mg/d L plus symptoms Blood Urea Nitrogen 26(H) 10 - 20 mg/dL [facility] Creatinine 1.91(H) 0.80 - 1.50 mg/dL [facility] Sodium 138 135 - 145 mmol/L [facility] Potassium 4.6 3.5 - 5.0 mmol/L [facility] Comment: Please note: ??Patients with WBC >100,000 may have falsely elevated Potassium levels. ??For accurate Potassium quantification in these patients send serum separator tube (gold top) for subsequent determinations. ??Contact the Clinical Chemistry Laboratory if there are any questions. Chloride 101 98 - 107 mmol/L [facility] Carbon Dioxide 24 22 - 31 mmol/L [facility] Anion Gap 13 5 - 15 mmol/L [facility] Calcium 9.4 8.5 - 10.5 mg/dL [facility] Est Glomerular Filtration Rate 32(L) >=60 mL/min/1. 73 m?? [facility] Comment: This patient? s [...] Lab Maximino Mcallister MD [place] [address] * XR Chest One View (11/07/2020 8:35 [...] who have questions please contact the health lawn care worker that requested your imaging first. ? Narrative [...] patients who have questions please contactthe health lawn care worker that requested your imaging first. Electronically signed by: Tyrone Jones MD, [facility]([phone]), at 11/07/2020 8:39 AM Maximino Mcallister MD [...] Starting on Lisa 11/09/20 at 0845, Until Ilsa 11/09/20 at 1821, Low blood sugar, For [...] PRN, Starting on Fri11/07/20 at 0749, Until [facility] 11/09/20 at 1821, Chest pain, May repeat [...] Provider: Rachel Orosco RN)[id number] (Given - Provider: Juluis Leon, RN) 0833 (Given - Provider: Julius [...] Tomas Nelson, MARILYN) 08 (Given - Provider: Jluius Leon, MARILYN) Continuous Medication Order 11/07/2020 11/08/2020 [...] Routine documented in this encounter Care Teams Plastic Shaper Relationship Specialty Start Date End Date Rolando Moise MD [address] [facility] [place] [address] PCP - General Family Medicine 09/16/16 documented as of this encounter
--- OUTSIDE RECORDS SUMMARY | 2023-12-28 06:41 | XMS_ITS | Encounter Summary ---
Author Organization Formerly [facility] [place] [address] Care Team Providers Care Taco Maker Name Role Phone Rolando Moise MD Primary Care Provider [phone] Encounter Details Date Type Department Care Team (Late st Contact Info) Description 05/26/2019 Telephone [place] [phone] Elle Cunningham Social History Tobacco Use Types [...] 1:30 PM EDT Laboratory Appointment Lab [address] [place] [address] 01/02/2024 3:00 PM EDT Office Visit Ne[place] [address] Adam Costa MD [facility] [place] [address] documented as of this encounter Visit Diagnoses Not on filedocumented in this encounter Care Teams Taco Maker Relationship Specialty Start Date End Date Rolando Moise MD [address] [place] [address] [place] [address] PCP - General Family Medicine 09/16/16 documented as of this encounter
--- OUTSIDE RECORDS SUMMARY | 2023-12-28 06:41 | XMS_ITS | Encounter Summary ---
[place] [address] Care Team Providers Care Manager Patient Name Role Phone Rolando Moise MD Primary Care Provider [phone] Reason for Referral * Consultation (Routine) - Closed Specialty Diagnoses / Procedures Referred By Contac t Referred To Contact Nephrology Diagnoses Chronic kidney disease, stage IV (severe) Rolando Moise MD [address] [place] [address] [facility] Nephrology [address] [place] [address] Referral ID Status Reason Start Date Expiration Date V isits Requested Visits Authorized [id number] Closed Consult, Test & Treat PCP Updated and/or Approved 02/28/2022 02/28/2023 6 6 Encounter Details Date Type Department Care Team (Latest Contact Info) Description 02/28/2022 Transcribe Orders eDH Incoming Referrals [phone] Rolando Moise MD [address] [place] [address] Chronic kidney disease, stage IV (severe) [...] 1:30 PM EDT Laboratory Appointment Lab [address]L [place] [address] 01/02/2024 3:00 PM EDT Office Visit Nephrology [place] [address] Adam Costa MD [facility] [place] [address] Scheduled Referrals Name Type Priority Associated Diagnoses Order Schedule Referral to Nephrology Outpatient Referral Routine Chronic kidney disease, stage IV (severe) Ordered: 02/28/2022 documented as of this encounter Visit Diagnoses Diagnosis Chronic kidney disease, stage IV (severe) Chronic kidney disease, Stage IV (severe) documented in this encounter Care Teams Manager Patient Relationship Specialty Start Date End Date Rolando Moise MD [address] [place] [address] PCP - General Family Medicine 09/16/16 documented as of this encounter
--- OUTSIDE RECORDS SUMMARY | 2023-12-28 06:41 | XMS_ITS | Encounter Summary ---
Author Organization [facility] Address [facility] [place] [address] Care Team Providers Care Water Systems Engineer Name Role Phone Rolando Moise MD Primary Care Provider [phone] Reason for Visit * Reason Comments Follow-up Coronary Artery Disease Encounter Details Date Type Department Care Team (Latest Contact Info) Description 09/22/2017 4:00 PM EDT Office Visit Cardiology at [address] [address] Shoshana Moyer APRN [facility] [place] [address] ASCVD (arteriosclerotic cardiovascular disease); Hypertension, unspecified type; [...] 3 months. Please call our clinic at [phone] if you have any further concerns prior to your next appointment. documented in this encounter Progress Notes * Shoshana Moyer APRN - 09/22/2017 4:00 PM EDT Images from the original note were not included. [facility] [place] [address] General Cardiology Follow Up Subjective: Patient ID: [...] INTERIM: He had an ED visit in [facility] yesterday for eye discomfort and was diagnosed with bilateral conjunctivitis, and prescribed erythromycin. Otherwise no other ED visits or hospitalizations. 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 He also tolerates house/yard work [...] 3 months. 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 He also tolerates house/yard work [...] 1:30 PM EDT Laboratory Appointment Lab [address] [place] [address] 01/02/2024 3:00 PM EDT Office Visit [place]ph[place] [address] Adam Costa MD [facility] [place] [address] documented as of this encounter Visit Diagnoses Diagnosis ASCVD (arteriosclerotic cardiovascular disease) Unspecified cardiovascular disease Hypertension, unspecified type Cardiomyopathy, ischemic Other specified forms of chronic ischemic heart disease documented in this encounter Care Teams Water Systems Engineer Relationship Specialty Start Date End Date Rolando Moise MD [address] [place] [address] [place] [address] PCP - General Family Medicine 09/16/16 documented as of this encounter
--- OUTSIDE RECORDS SUMMARY | 2023-12-28 06:41 | XMS_ITS | Encounter Summary ---
Author Organization Formerly [facility] Address [facility] [place] [address] Care Team Providers Care Global Cmo Name Role Phone Rolando Moise MD Primary Care Provider [phone] Reason for Referral * Diagnostic Test (Routine) - Closed Specialty Diagnoses / Procedures Referred By Teodoro robertson Referred To Contact Cardiology Diagnoses Cardiomyopathy, ischemic Procedures Echocardiogram Transthoracic(Leb) Muriel Manning MD [facility] [place] [address] [facility] [place] [address] Referral ID Status Reason Start Date Expiration Date V isits Requested Visits Authorized [id number] Closed Specialty Service Requested 05/27/2017 05/27/2018 1 1 Reason for Visit * Diagnostic Test (Routine) - Closed Specialty Diagnoses / Procedures Referred By Teodoro robertson Referred To Contact Cardiology Diagnoses Cardiomyopathy, ischemic Procedures Echocardiogram Transthoracic(Leb) Muriel Manning MD [facility] [place] [address] [facility] [place] [address] Referral ID Status Reason Start Date Expiration Date V isits Requested Visits Authorized [id number] Closed Specialty Service Requested 05/27/2017 05/27/2018 1 1 Encounter Details Date Type Department Care Team (Latest Contact Info) Description 09/22/2017 12:50 PM EDT - 09/22/2017 11:59 PM EDT Hospital Encounter Non-[place] [address] Muriel Manning MD [facility] [place] [address] Cardiomyopathy, ischemic Discharge Disposition: Home Social History [...] 1:30 PM EDT Laboratory Appointment Lab [address]L [place] [address] 01/02/2024 3:00 PM EDT Office Visit Nephrology [place] [address] Adam Costa MD [facility] [place] [address] documented as of this encounter Procedures Procedure Name Priority Date/Time Associated Diagnosis Comments ECHO COMPLETE Routine 09/22/2017 2:33 PM EDT Cardiomyopathy, ischemic documented in this encounter Results * ECHO COMPLETE (09/22/2017 2:33 PM EDT) EF 60 HEARTLAB SYSTEM Anatomical Region Laterality Modality Other 09/22/2017 Narrative 09/22/2017 2:40 PM EDT Procedure: ?Transthoracic Echocardiogram Patient: ?EDD Hatch ?(Age): 1935(81y) Med Rec#: ? [id number] ?Sex: ?M ? Site Loc: ? [facility] ?Ht / Wt: ??178(cm)/88(kg) Pt. Loc: ?Echo Lab ?BSA: ?2.06 Study Date: ?? 09/22/2017 ?Pt. Type: Outpatient Tape: ? Referring: MURIEL MANNING T Reading: Bayron Oliva ([id number]) Thermal Surfacing Machine Operator: Taisha Davidson Diagnosis: *ICD-10-PCS Ischemic cardiomyopathy (I25.5) [...] E-wave Vmax ?0.7 ?m/sec ? MV deceleration [id number] ?msec ? MV A-wave Vmax ?1.3 ?m/sec [...] ? Mid-Inferior ?Normal ? Mid-Inferoseptal ?Normal ? Caldwell-Septal ? Normal ? Caldwell-Anterior ? Normal ? Caldwell-Lateral ?Normal ? Caldwell-Inferior ? Normal ? Caldwell-Tip ?Normal ? This report has been electronically signed by: Bayron Oliva M.D. ? 09/22/2017 14:40:07 Images reviewed and interpretation verified [facility] Cardiac Ultrasound [facility] Procedure Note Bayron Oliva MD - 09/22/2017 Procedure: Transthoracic Echocardiogram Patient: EDD COUCH(Age): 1935(81y) Med Rec#: [id number] Sex: M Site Loc: [facility] Ht / Wt: 178(cm)/88(kg) Pt. Loc: Echo Lab BSA: 2.06 Study Date: 09/22/2017 Pt. Type: Outpatient Tape: Referring: MURIEL MANNING T Reading: Bayron Oliva ([id number]) Thermal Surfacing Machine Operator: Taisha Davidson Diagnosis: *ICD-10-PCS Ischemic cardiomyopathy (I25.5) [...] MV E-wave Vmax 0.7 m/sec MV deceleration [id number] msec MV A-wave Vmax 1.3 m/sec MV [...] Normal Mid-Posterolateral Normal Mid-Inferior Normal Mid-Inferoseptal Normal Caldwell-Septal Normal Caldwell-Anterior Normal Caldwell-Lateral Normal Caldwell-Inferior Normal Caldwell-Tip Normal This report has been electronically signed by: Bayron Oliva M.D. 09/22/2017 14:40:07 Images reviewed and interpretation verified [facility] Muriel Manning MD ECHO ORDERABLES documented in this encounter Visit Diagnoses Diagnosis Cardiomyopathy, ischemic Other specified forms of chronic ischemic heart disease documented in this encounter Care Teams Global Cmo Relationship Specialty Start Date End Date Rolando Moise MD [address] [place] [address] PCP - General Family Medicine 09/16/16 documented as of this encounter
--- OUTSIDE RECORDS SUMMARY | 2023-12-28 06:41 | XMS_ITS | Encounter Summary ---
Author Organization Formerly [facility] Address [facility] [place] [address] Care Team Providers Care Dramatic Director Name Role Phone Rolando Moise MD Primary Care Provider [phone] Reason for Referral * Diagnostic Test (Routine) - Closed Specialty Diagnoses / Procedures Referred By Teodoro robertson Referred To Contact Cardiology Diagnoses Cardiomyopathy, ischemic Procedures Echocardiogram Transthoracic(Leb) Muriel Manning [place] [facility] [place] [address] [facility] [place] [address] Referral ID Status Reason Start Date Expiration Date V isits Requested Visits Authorized [id number] Closed Specialty Service Requested 05/27/2017 05/27/2018 1 1 Encounter Details Date Type Department Care Team (Late st Contact Info) Description 05/27/2017 Orders Only Cardiology at [address] [address] Mur[place] Manning [place] [address] Cardiomyopathy, ischemic Social History Tobacco Use [...] 1:30 PM EDT Laboratory Appointment Lab [address] [place] [address] 01/02/2024 3:00 PM EDT Office Visit [place] [address] Adam Costa MD [facility] [place] [address] documented as of this encounter Results * ECHO COMPLETE (09/22/2017 2:33 PM EDT) EF 60 HEARTLAB SYSTEM Anatomical Region Laterality Modality Other 09/22/2017 Narrative 09/22/2017 2:40 PM EDT Procedure: ?Transthoracic Echocardiogram Patient: ?EDD LEIVA D ?(Age): 1935(81y) Med Rec#: ? [id number] ?Sex: ?M ? Site Loc: ? [facility] ?Ht / Wt: ??178(cm)/88(kg) Pt. Loc: ?Echo Lab ?BSA: ?2.06 Study Date: ?? 09/22/2017 ?Pt. Type: Outpatient Tape: ? Referring: MURIEL MANNING T Reading: Bayron Oliva ([id number]) Greeter Guest Services: Taisha Davidson Diagnosis: *ICD-10-PCS Ischemic cardiomyopathy (I25.5) [...] E-wave Vmax ?0.7 ?m/sec ? MV deceleration [id number] ?msec ? MV A-wave Vmax ?1.3 ?m/sec [...] ? Mid-Inferior ?Normal ? Mid-Inferoseptal ?Normal ? Roosevelt-Septal ? Normal ? Roosevelt-Anterior ? Normal ? Roosevelt-Lateral ?Normal ? Roosevelt-Inferior ? Normal ? Roosevelt-Tip ?Normal ? This report has been electronically signed by: Bayron Oliva M.D. ? 09/22/2017 14:40:07 Images reviewed and interpretation verified [facility] Cardiac Ultrasound Laboratory Procedure Note Bayron Oliva MD - 09/22/2017 Procedure: Transthoracic Echocardiogram Patient: EDD COUCH(Age): 1935(81y) Med Rec#: [id number] Sex: M Site Loc: [facility] Ht / Wt: 178(cm)/88(kg) Pt. Loc: Echo Lab BSA: 2.06 Study Date: 09/22/2017 Pt. Type: Outpatient Tape: Referring: MURIEL MANNING T Reading: Bayron Oliva ([id number]) Greeter Guest Services: Taisha Davidson Diagnosis: *ICD-10-PCS Ischemic cardiomyopathy (I25.5) [...] MV E-wave Vmax 0.7 m/sec MV deceleration [id number] msec MV A-wave Vmax 1.3 m/sec MV [...] Normal Mid-Posterolateral Normal Mid-Inferior Normal Mid-Inferoseptal Normal Roosevelt-Septal Normal Roosevelt-Anterior Normal Roosevelt-Lateral Normal Roosevelt-Inferior Normal Roosevelt-Tip Normal This report has been electronically signed by: Bayron Oliva M.D. 09/22/2017 14:40:07 Images reviewed and interpretation verified [facility] Cardiac Ultrasound Laboratory Muriel Manning MD ECHO ORDERABLES documented in this encounter Visit Diagnoses Diagnosis Cardiomyopathy, ischemic Other specified forms of chronic ischemic heart disease Cardiomyopathy, ischemic Other specified forms of chronic ischemic heart disease documented in this encounter Care Teams Dramatic Director Relationship Specialty Start Date End Date Rolando Moise MD [facility] [place] [address] PCP - General Family Medicine 09/16/16 documented as of this encounter
--- OUTSIDE RECORDS SUMMARY | 2023-12-28 06:41 | XMS_ITS | Encounter Summary ---
Author Organization [facility] Address [facility] [place] [address] Care Team Providers Care Cartographic Aide Name Role Phone Rolando Moise MD Primary Care Provider [phone] Encounter Details Date Type Department Care Team (Late st Contact Info) Description 11/07/2020 [place] [address] Social History Tobacco Use Types Packs/Day Years [...] 01/02/2024 1:30 PM EDT Laboratory Appointment Lab [address] [address] 01/02/2024 3:00 PM EDT Office Visit [place] [address] Adam Costa MD [facility] [place] [address] documented as of this encounter Procedures Procedure Name Priority Date/Time Associated Diagnosis Comments ECG SCAN Routine 11/07/2020 documented in this encounter Results * Scan Doc: ECG (11/07/2020) Historical Provider MD MEDIA MGR SCAN EX T ORDR/RSLT documented in this encounter Visit Diagnoses Not on filedocumented in this encounter Care Teams Cartographic Aide Relationship Specialty Start Date End Date Rolando Moise MD [address] [place] [address] PCP - General Family Medicine 09/16/16 documented as of this encounter
--- OUTSIDE RECORDS SUMMARY | 2023-12-28 06:41 | XMS_ITS | Encounter Summary ---
Author Organization [facility] Address [facility] [place] [address] Care Team Providers Care Sales And Leasing Consultant Name Role Phone Rolando Moise MD Primary Care Provider [phone] Reason for Visit * Reason Comments Skin Check * Consultation (Routine) - Closed Specialty Diagnoses / Procedures Referred By Contrachid t Referred To Contact Dermatology Diagnoses Transient acantholytic dermatosis (juan diego) Rolando Moise MD [address] [place] [address] [place] [address] Ashkan Eason MD [address] [place] [address], [facility] [address] Referral ID Status Reason Start Date Expiration Date V isits Requested Visits Authorized [id number] Closed Consult, Test & Treat 06/13/2022 06/13/2023 1 1 Encounter Details Date Type Department Care Team (Late st Contact Info) Description 07/18/2022 11:00 AM EDT Office Visit Dermatology at [address] [address] Ashkan Eason MD [address] [place] [address], [facility] [place] [address] Pruritus; Xerosis cutis Social History [...] a daily basis to the legs. Obtain [id number] 2. Begin wearing Tubigrip stockings during the daytime taking off at night to help reduce his lowerextremity edema. Pruritus, scientology scalp 1. No primary neurologic findings 2. [...] nightly to symptomatic in left temporal scalp.. Uxdduayw74 mL with 5 refills 6. Return to clinic in another month for repeat check. Prescriptions will be sent to the [facility]. CC: Rolando Moise MD documented in this encounter Plan of Treatment Upcoming Encounters Date Type Department Care Team (Latest Contact Info) Description 01/02/2024 1:30 PM EDT Laboratory Appointment Lab [address] [place] [address] 01/02/2024 3:00 PM EDT Office Visit [place]phrology [place] [address] Adam Costa MD [facility] [place] [address] documented as of this encounter Visit Diagnoses Diagnosis Pruritus Unspecified pruritic disorder Xerosis cutis Other specified disease of sebaceous glands documented in this encounter Care Teams Sales And Leasing Consultant Relationship Specialty Start Date End Date Rolando Moise MD [address] [place] [address] PCP - General Family Medicine 09/16/16 documented as of this encounter
--- OUTSIDE RECORDS SUMMARY | 2023-12-28 06:41 | XMS_ITS | Encounter Summary ---
Author Organization [facility] Address [facility] [place] [address] Care Team Providers Care Soft Metals Hand Engraver Name Role Phone Rolando Moise MD Primary Care Provider [phone] Encounter Details Date Type Department Care Team (Late st Contact Info) Description 07/19/2018 [place] [phone] Suzanna Krueger MD [facility] [place] [address] Social History Tobacco Use Types Packs/Day Years [...] ~1830 Referring Provider: Dr. Conner Patient Location: [facility] Reason for call: consultation, request for [...] 1:30 PM EDT Laboratory Appointment Lab [address] [place] [address] 01/02/2024 3:00 PM EDT Office Visit [place] [address] Adam Costa MD [facility] [place] [address] documented as of this encounter Visit Diagnoses Not on filedocumented in this encounter Care Teams Soft Metals Hand Engraver Relationship Specialty Start Date End Date Rolando Moise MD [facility] [place] [address] PCP - General Family Medicine 09/16/16 documented as of this encounter
--- OUTSIDE RECORDS SUMMARY | 2023-12-28 06:41 | XMS_ITS | Encounter Summary ---
Author Organization [facility] [place] [address] Care Team Providers Care Otr Van Cdl Truck Driver Name Role Phone Rolando Moise MD Primary Care Provider [phone] Encounter Details Date Type Department Care Team (Late st Contact Info) Description 04/21/2019 Orders Only Vascular Surgery at [place] [phone] Rachel Arenas, BUILDING MAINTENANCE WORKER Abdominal aortic aneurysm (AAA) without rupture Social [...] 1:30 PM EDT Laboratory Appointment Lab [address]L [place] [address] 01/02/2024 3:00 PM EDT Office Visit [place] [address] Adam Costa MD [facility] [place] [address] documented as of this encounter Visit Diagnoses Diagnosis Abdominal aortic aneurysm (AAA) without rupture documented in this encounter Care Teams Otr Van Cdl Truck Driver Relationship Specialty Start Date End Date Rolando Moise MD [address] [place] [address] PCP - General Family Medicine 09/16/16 documented as of this encounter
--- OUTSIDE RECORDS SUMMARY | 2023-12-28 06:41 | XMS_ITS | Encounter Summary ---
Author Organization [facility] Address [facility] [place] [address] Care Team Providers Care Wireless Sales Associate Name Role Phone Rolando Moise MD Primary Care Provider [phone] Encounter Details Date Type Department Care Team (Late st Contact Info) Description 11/07/2020 Telephone Cardiology at [address] [address] Luis Villalobos MD [facility] [place] [address] Social History Tobacco Use Types Packs/Day Years [...] oDiag1 (02/2017), ICM (LV EF 35% after CT to 60% 09/2017), AAA s/p endovascular repair (04/2011) who presented to [facility] with chest pain. The day [...] or examined this patient. Luis Villalobos MD Examiner Of Currency documented in this encounter Plan of Treatment Upcoming Encounters Date Type Department Care Team (Latest Contact Info) Description 01/02/2024 1:30 PM EDT Laboratory Appointment Lab [address] [place] [address] 01/02/2024 3:00 PM EDT Office Visit [place] [address] Adam Costa MD [facility] [place] [address] documented as of this encounter Visit Diagnoses Not on filedocumented in this encounter Care Teams Wireless Sales Associate Relationship Specialty Start Date End Date Rolando Moise MD [address] [place] [address] PCP - General Family Medicine 09/16/16 documented as of this encounter
--- OUTSIDE RECORDS SUMMARY | 2023-12-28 06:41 | XMS_ITS | Encounter Summary ---
Author Organization [facility] [place] [address] Care Team Providers Care Horse Stud Worker Name Role Phone Rolando Moise MD Primary Care Provider Reason for Referral * Consultation (Routine) - Closed Specialty Diagnoses / Procedures Referred By Contac t Referred To Contact Vascular Surgery Diagnoses Abdominal aortic aneurysm (AAA) without rupture, unspecified part ROUTINE, ELPIDIO/, CT AAA Rolando Moise MD [address] [place] [address] [facility] [address] [place] [address] Referral ID Status Reason Start Date Expiration Date V isits Requested Visits Authorized [id number] Closed Consult, Test & Treat PCP Updated and/or Approved 06/13/2023 06/12/2024 1 1 Encounter Details Date Type Department Care Team (Latest Contact Info) Description 06/13/2023 Transcribe Orders eDH Incoming Referrals [phone] Rolando Moise MD [address] [place] [address] Abdominal aortic aneurysm (AAA) without rupture, [...] 1:30 PM EDT Laboratory Appointment Lab [address] [place] [address] 01/02/2024 3:00 PM EDT Office Visit [place] [address] Adam Costa MD [facility] [place] [address] Scheduled Referrals Name Type Priority Associated Diagnoses Orde r Schedule Referral to Vascular Surgery Outpatient Referral Urgent Abdominal aortic aneurysm (AAA) without rupture, unspecified part Ordered: 06/13/2023 documented as of this encounter Visit Diagnoses Diagnosis Abdominal aortic aneurysm (AAA) without rupture, unspecified part- Primary documented in this encounter Care Teams Horse Stud Worker Relationship Specialty Start Date End Date Rolando Moise MD [address] [place] [address] PCP - General Family Medicine 09/16/16 documented as of this encounter
--- OUTSIDE RECORDS SUMMARY | 2023-12-28 06:41 | XMS_ITS | Encounter Summary ---
Author Organization [facility]ly [facility] [place] [address] Care Team Providers Care Local Area Network Systems Adminstrator Name Role Phone Rolando Moise MD Primary Care Provider Encounter Details Date Type Department Care Team (Late st Contact Info) Description 07/18/2022 Telephone Dermatology at [address] [place] [place] [address] Padmini Maria LPN Social History [...] [facility] [place], [place] Dr. Moise's office faxes prescriptions to [phone]. [facility]. documented in this encounter Plan of Treatment Upcoming Encounters Date Type Department Care Team (Latest Contact Info) Description 01/02/2024 1:30 PM EDT Laboratory Appointment Lab [address] [place] [address] 01/02/2024 3:00 PM EDT Office Visit [place] [address] Adam Costa MD [facility] [place] [address] documented as of this encounter Visit Diagnoses Not on filedocumented in this encounter Care Teams Local Area Network Systems Adminstrator Relationship Specialty Start Date End Date Rolando Moise MD [address] [place] [address] PCP - General Family Medicine 09/16/16 documented as of this encounter
--- OUTSIDE RECORDS SUMMARY | 2023-12-28 06:41 | XMS_ITS | Encounter Summary ---
Author Organization [facility] Address [facility] [address] Care Team Providers Care Demand Manager Name Role Phone Rolando Moise MD Primary Care Provider [phone] Encounter Details Date Type Department Care Team (Late st Contact Info) Description 11/09/2020 Telephone [place] [phone] Evan Sinclair MD [facility] GENERAL [place] [address] Social History Tobacco Use Types Packs/Day Years [...] 1:30 PM EDT Laboratory Appointment Lab [address] [place] [phone] 01/02/2024 3:00 PM EDT Office Visit [place] [address] Adam Costa MD [facility] [place] [address] documented as of this encounter Visit Diagnoses Not on filedocumented in this encounter Care Teams Demand Manager Relationship Specialty Start Date End Date Rolando Moise MD [facility] [place] [phone] PCP - General Family Medicine 09/16/16 documented as of this encounter
--- OUTSIDE RECORDS SUMMARY | 2023-12-28 06:41 | XMS_ITS | Encounter Summary ---
Author Organization [facility] Address [facility] [place] [address] Care Team Providers Care Chemical Etch Operator Name Role Phone Arely Moise MD Primary Care Provider [phone] Reason for Referral * Consultation (Routine) - Closed Specialty Diagnoses / Procedures Referred By Contact Referred To Contact Cardiac Rehabilitation Diagnoses Non-ST elevation myocardial infarction (NSTEMI) Bayron Oliva MD [facility] [place] [address] Cardiac Rehab, [address] [place] [address] Referral ID Status Reason Start Date Expiration Date V isits Requested Visits Authorized [id number] Closed Consult, Test & Treat 02/05/2017 08/04/2017 36 36 Reason for Visit * Auth/Cert Specialty Diagnoses / Procedures Referred By Contac t Referred To Contact Diagnoses NSTEMI (non-ST elevated myocardial infarction) NSTEMI ?CAD Procedures CARDIAC CATHETERIZATION Referral ID Status Reason Start Date Expiration Date Visits Re quested Visits Authorized [id number] 1 1 Encounter Details Date Type Department Care Team (Latest Contact Info) Description 02/03/2017 8:29 AM EDT - 02/05/2017 11:44 AM EDT Hospital Encounter [place] [id number] Inder Medley MD [facility] [place] [address] Bayron Oliva MD [facility] [place] [address] Non-ST elevation myocardial infarction (NSTEMI) Discharge Disposition: [...] Cesar Thompson Patient Age: 81 y.o. Language: Azerbaijani Race: White Ethnicity: Not nor Admit date: 02/03/2017 Discharge date and time: 02/05/2017 Attending Physician: Bayron Oliva MD Discharge Physician: Bayron Oliva MD Follow-up Recommendations for Providers: 1. Continue clopidogrel 75 mg and aspirin 81 mg PO daily for 12 months otherwise told differently by Radio Script Writer. 2. Please monitor heart rate and blood pressure. 3. Start metoprolol XL 100 mg daily 4. Discontinue verapamil 120 mg tablet PO 5. Resume metformin 500 mg tablet PO two times a day, needs to take his second metformin dose tonight. Inpatient Provider Contact Information: Lili Ryan PA-C [facility] Provider # [id number] Discharge Diagnoses (Hospital Problems) and Secondary Diagnoses [...] of hypertension, AAA, hyperlipidemia and diabetes mellitus [id number]-gpansxihd who presented to [facility] with complaint of inability [...] to the ED. He drove himself. ?? [facility] did an EKG which showed sinus [...] is most likely a non-STEMI. ED called [facility] cardiology which recommended to start Plavix 300 mg orally and was started to heparin per ACS protocol. ?? Hospital Course: On admission to [facility], the patient had complaints of chest pain and some shortness of breath with exertion. Telemetry was attached which showed normal sinus rhythm. Heparin drip was infusing. [facility] records/transfer records were reviewed. Baseline labs were checked and/or drawn. NSTEMI Given the patient's risk factors and ECG changes, positive biomarkers, it was decided to proceed with coronary angiography. The patient went to the cardiac label designer for a diagnostic cath which showedone vessel [...] 2:00 PM Shoshana Gaspar APRN Cardiology at [place] [phone] Future Orders Complete By Expires Referral to Cardiac Rehab [[id number] Custom] As directed Process Instructions: If no progress note charted, please enter Clinical details in comments. Scheduling Instructions: Questions: My question or request is: NSTEMI, PCI. Cardiac rehab at [facility] Discharge References/Attachments MYRA INHIBITORS AND ARBS: GENERAL INFO (ESTONIAN) PCI (PERCUTANEOUS CORONARY INTERVENTION): POST-OP (ESTONIAN) HYPERTENSION: GENERAL INFO (ESTONIAN) Lili Ryan PA-C 02/05/2017 documented in this encounter Discharge Instructions * Discharge Instructions* Shoshana Gaspar APRN - 02/05/2017 10:31 AM EDT Anti-coagulation follow up: Continue on plavix and aspirin for at least 12 months until otherwise told by his Radio Script Writer. Call your doctor if: Chest pain, shortness of breath, pain or swelling in legs occurs. If you have non-emergent questions between now and the time of your follow up appointments: During 8am-5pm Friday through Friday call [phone] to speak with a nurse in the cardiology clinic All other times call [phone] and ask to speak to the outside contractor sales applications sales consultant. Return to work: One week Driving: No driving for 48 hours after catheterization. Follow up Appointments: PCP Arely Moise MD [phone] Your follow up appointment is scheduled for February 12, 2017 at 10:00 am Cardiology [facility] : Shoshana Gaspar NP Your follow up appointment is scheduled for March at 1:45 pm. Resume metformin 500 mg tablet PO two times a day tonight (02/05) for evening dose * Attachments The following attachments cannot be sent through Care Everywhere. * MYRA INHIBITORS AND ARBS: GENERAL INFO (ESTONIAN) * PCI (PERCUTANEOUS CORONARY INTERVENTION): POST-OP (ESTONIAN) * HYPERTENSION: GENERAL INFO (ESTONIAN) documented in this encounter Medications at Time [...] Progress Note Patient Name: Cesar Thompson Service: SEED SERVICE ADVISOR / PA Responsible Attending: Bayron Oliva MD [...] 81 mg daily for 12 months per construction director. - continue Atorvastin, lisinopril. - Discontinue short [...] between care. SR/ST on tele with 1'AVB (MT 0.24), frequent PACs, occasional NS atrial trigem, HR 45-107. Pt sats well on RA; denied pain/discomfort and SOB throughout the shift. 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 PLAN MOVING FORWARD: [...] Progress Note Patient Name: Cesar Thompson Service: SEED SERVICE ADVISOR / PA Responsible Attending: Bayron Oliva MD [...] 81 mg daily for 12 months per construction director. - continue Atorvastin 40 mg daily - [...] of hypertension, AAA, hiperlididemia and diabetes mellitus jtw-mxabrrq-hpggmiing who presented to [facility] with complaint of inability [...] go to the ED. He drove himself. [facility] did an EKG which showed sinus [...] is most likely a non-STEMI. ED called [facility] cardiology which recommended to start Plavix 300 [...] REPAIR, GORE performed by ACACIA BRYANT at [facility] MAIN OR ??? PRO AAA REPAIR, MODULR BIFUR PROSTH, 2-DOCK 04/12/2011 @EVG, AAA, W\ MODULAR BIFURCATED PROS. W\ 2 DOCKING LIMBS performed by ACACIA BRYANT at [facility] MAIN OR ??? PRO AAA REPR, EXPOSE FEMORAL ART, GROIN INCIS 04/12/2011 @EXPOSURE, OPEN FEM. ARTERY FOR ENDOVASCULAR PROSTHESIS, GROIN-FABIANA performed by ACACIA BRYANT at [facility] MAIN OR ? ? PRO ENDOVASC REPAIR INFRARENAL AAA/DISSECTION S&I 04/12/2011 @EVG, INFRARENAL AAA OR DISSECTION, S&I performed by ACACIA BRYANT at [facility] MAIN OR Significant Family History: No family [...] Take 0.4 mg by mouth daily. ??? [place]-3 Fatty Acids-Vitamin E (FISH OIL) 1,000 mg [...] of hypertension, AAA, hiperlididemia and diabetes mellitus bbt-yplqyaz-astgtlmes who presents to [facility] with complaint of inability [...] -check A1c Provider: QUINN Ness Provider #: [id number] 02/03/2017 Cardiology staff addendum I have discussed, [...] ANEURYSM, S&I performed by ACACIA BRYANT at [facility] OR ??? PRO AAA REPAIR, 1ST VESSEL, EXTENSION PROSTH 04/12/2011 @EVG-PLACEMENT, CUFF OR EXT. AORTIC OR ILIAC ANEURYSM REPAIR, GORE performed by ACACIA BRYANT at [facility] OR ??? PRO AAA REPAIR, MODULR BIFUR PROSTH, 2-DOCK 04/12/2011 @EVG, AAA, W\ MODULAR BIFURCATED PROS. W\ 2 DOCKING LIMBS performed by ACACIA BRYANT at [facility] OR ??? PRO AAA REPR, EXPOSE FEMORAL ART, GROIN INCIS 04/12/2011 @EXPOSURE, OPEN FEM. ARTERY FOR ENDOVASCULAR PROSTHESIS, GROIN-FABIANA performed by ACACIA BRYANT at [facility] OR ? ? PRO ENDOVASC REPAIR INFRARENAL AAA/DISSECTION S&I 04/12/2011 @EVG, INFRARENAL AAA OR DISSECTION, S&I performed by ACACIA BRYANT at [facility] OR Hospitalizations Within the Past 30 [...] per patient Preferred Pharmacy: [facility]?? Other: [facility] mail order pharmacy Primary Care Provider: Arely Moise MD [phone] Patient/Caregiver Goals of Treatment: per medical team [...] of care planning. Shital Schmidt RN Pager: [phone] * Consult Note - Riya Kellogg RN [...] in the outpatient cardiac rehabilitation program at [facility] was discussed. Patient agrees to a [...] 1:30 PM EDT Laboratory Appointment Lab [address] [place] [address] 01/02/2024 3:00 PM EDT Office Visit Neph[place] [address] Adam Costa MD [facility] [place] [address] Scheduled Referrals Name Type Priority Associated Diagnoses Orde r Schedule Referral to Cardiac Rehab Outpatient Referral Routine Non-ST elevation myocardial infarction (NSTEMI) Ordered: 02/05/2017 documented as of this encounter Procedures Procedure Name Priority Date/Time Associated Diagnosis Comments [facility] DIRECTOR SCAN 02/06/2017 12:00 AM EDT POCT GLUCOSE [...] 02/05/20 17 3:33 AM EDT CARDIAC ENZYMES ([facility]) Routine 02/04/2017 3:33 AM EDT CBC (WITH [...] Non-ST elevation myocardial infarction (NSTEMI) CARDIAC ENZYMES ([facility]) STAT 02/03/2017 9:00 PM EDT POCT GLUCOSE Routine 02/03/2017 8:29 PM EDT POCT GLUCOSE Routine 02/03/2017 4:54 PM EDT EKG 12-LEAD Routine 02/03/2017 4:43 PM EDT Non-ST elevation myocardial infarction (NSTEMI) CARDIAC CATHETERIZATION Routine 02/04/20 17 4:26 PM EDT CARDIAC ENZYMES ([facility]) Routine 02/03/2017 3:00 PM EDT TSH Routine [...] 02/04/20 17 9:35 AM EDT CARDIAC ENZYMES ([facility]) STAT 02/03/2017 9:35 AM EDT APTT STAT 02/03/2017 9:35 AM EDT PROTHROMBIN TIME STAT 02/03/2017 9:35 AM EDT CBC (WITH DIFF) Routine 02/03/2017 9:35 AM EDT PRO-BRAIN NATRIURETIC PEPTIDE STAT 02/03/2017 9:35 AM EDT BASIC METABOLIC PANEL STAT 02/03/2017 9:35 AM EDT EKG 12-LEAD STAT 02/03/2017 9:23 AM EDT Non-ST elevation myocardial infarction (NSTEMI) documented in this encounter Results * SCAN DOC: SURVEY RESEARCH CENTER DIRECTOR (02/06/2017 12:00 AM EDT) Anatomical Region Laterality Modality Other Narrative 02/06/2017 12:00 AM EDT Ordered by an unspecified provider. Scanning Provider MEDIA MGR SCAN EXT O RDR/RSLT * POCT Glucose (02/05/2017 7:32 AM EDT) [facility] Glucose, POC 160 65 - 199 mg/dL [facility] Comment: Supplemental ranges: <140 mg/dL before meals <180 mg/dL all other times of the day Blood specimen (specimen) 02/05/2017 7:32 AM EDT 02/05/2017 7:32 AM EDT Bayron Oliva MD POINT OF CARE TEST O RDERABLES [facility] [place] [address] * EKG 12 Lead (02/05/2017 7:26 AM EDT) Ventricular rate 54 BPM MUSE SYSTEM Atrial Rate 54 BPM MUSE SYSTEM P-R Interval 214 ms MUSE SYSTEM QRS Duration 96 ms MUSE SYSTEM Q-T Interval 486 ms MUSE SYSTEM QTC Calculated (Bezet) 460 ms MUSE SYSTEM Calculated P [place] 14 degrees MUSE SYSTEM Calculated R [place] 112 degrees MUSE SYSTEM Calculated T [place] 143 degrees MUSE SYSTEM INTERPRETATION Sinus bradycardia [...] 3:43 AM EDT) Neutrophil % 63.2 % [facility] Neutrophil Absolute 7.21(H) 1.70 - 6.10 x10(3)/mc L [facility] Lymph % 20.7 % [facility] Lymphocytes Abs 2.4 0.9 - 3.2 x10(3)/mc L [facility] Monocyte % 11.2 % [facility] Monocyte Abs 1.3(H) 0.3 - 0.9 x10(3)/mc L [facility] Eos % 4.1 % [facility] Eosinophils Abs 0.5(H) 0.0 - 0.4 x10(3)/mc L [facility] Basophil % 0.5 % [facility] Baso Absolute 0.1 0.0 - 0.1 x10(3)/mc L [facility] Immature Gran % 0.30 % [facility] Comment: Immature granulocytes(IG's)percentage and absolute count will include metamyelocytes, myelocytes, and promyelocytes. Blood smears from CBCs yielding IG's will be scanned manually for concordance. If this scan disagrees with the automated IG or if promyelocytes are noted, a manual differential will be performed. Immature Gran Absolute 0.03 0.00 - 0.04 x10(3)/mc L [facility] Blood specimen (specimen) 02/05/2017 3:43 AM EDT 02/05/2017 3:52 AM EDT Narrative Resulting Agency Comment Spec In Lab Shoshana Moyer RADHA HEMATOLOGY ORDERABLE S [facility] [place] [address] * (ABNORMAL) Hemogram (02/05/2017 3:43 AM EDT) White Blood Cell 11.4(H) 4.0 - 9.5 x10(3)/[facility] Red Blood Cell 4.48(L) 4.58 - 5.54 x10(6)/[facility] Hemoglobin 14.0 13.7 - 16.5 gm/dL [facility] Hematocrit 41.1 40.5 - 48.5 % [facility] Mean Cell Volume 91.7 82.9 - 93.[address] [facility] Mean Cell Hemoglobin 31.3 27.5 - 32.[address] [facility] Mean Cell Hemoglobin Concentration 34.1 32.0 - 35.7 gm/dL [facility] Platelet 168 145 - 357 x10(3)/[facility] RDW Standard Deviation 39.9 36.0 - 45.0 [facility] RDW coefficient of variation 11.8 11.4 - 13.8 % [facility] Mean Platelet Volume 10.2 7.6 - 12.9 [facility] NRBC% auto 0.0 % [facility] NRBC Absolute 0.000 0.000 - 0.000 x10(3)/[facility] Blood specimen (specimen) 02/05/2017 3:43 AM EDT 02/05/2017 3:52 AM EDT Narrative Resulting Agency Comment Spec In Lab Shoshana Moyer RADHA HEMATOLOGY ORDERABLE S [facility] [place] [address] * (ABNORMAL) BMP w/fasting Glucose (02/05/2017 3:43 AM EDT) Glucose Fasting 149(H) 65 - 99 mg/dL [facility] [...] of Diabetes Mellitus, Position Statement from the [place] Diabetes Association. ??Diabetes Care, Volume 33, Supplement 1, May 2009 Blood Urea Nitrogen 19 10 - 20 mg/dL [facility] Creatinine 1.46 0.80 - 1.50 mg/dL [facility] Comment: Please note that the pediatric reference intervals supplied above were not validated at [facility]. Results from pediatric patients should be interpreted in conjunction to the patient's age, height and muscle mass. Sodium 140 135 - 145 mmol/L [facility] Potassium 4.3 3.5 - 5.0 mmol/L [facility] Comment: Please note: ??Patients with WBC >100,000 may have falsely elevated Potassium levels. ??For accurate Potassium quantification in these patients send serum separator tube (gold top) for subsequent determinations. ??Contact the Clinical Chemistry Laboratory if there are any questions. Chloride 104 98 - 107 mmol/L [facility] Carbon Dioxide 24 22 - 31 mmol/L [facility] Anion Gap 12 5 - 15 mmol/L [facility] Calcium 8.8 8.5 - 10.5 mg/dL [facility] Est Glomerular Filtration Rate 46(L) >=60 [facility] Comment: This estimated GFR (eGFR) [...] the following links into your internet browser. [email or web address] Blood specimen (specimen) 02/05/2017 3:43 AM EDT 02/05/2017 3:52 AM EDT Narrative Resulting Agency Comment Spec In Lab Shoshana Moyer APRN CHEMISTRY ORDERABLES Performing Organization Address [facility] Co de Phone Number [facility] [place] [address] * Magnesium (02/05/2017 3:43 AM EDT) Magnesium 0.77 0.69 - 1.07 mmol/L [facility] Blood specimen (specimen) 02/05/2017 3:43 AM EDT 02/05/2017 3:52 AM EDT Narrative Resulting Agency Comment Spec In Lab Shoshana Doc Moyer ELIGIBILITY AND OCCUPANCY INTERVIEWER CHEMISTRY ORDERABLES Performing Organization Address [facility] Co de Phone Number [facility] [place] [address] * POCT Glucose (02/04/2017 8:10 PM EDT) Glucose, POC 189 65 - 199 mg/dL [facility] Comment: Supplemental ranges: <140 mg/dL before meals <180 mg/dL all other times of the day Blood specimen (specimen) 02/04/2017 8:10 PM EDT 02/04/2017 8:10 PM EDT Bayron Oliva MD POINT OF CARE TEST O RDERABLES Performing Organization Address City/[facility]/ZIP Co de Phone Number [facility] [place] [address] * POCT Glucose (02/04/2017 4:56 PM EDT) Glucose, POC 114 65 - 199 mg/dL [facility] Comment: Supplemental ranges: <140 mg/dL before meals <180 mg/dL all other times of the day Blood specimen (specimen) 02/04/2017 4:56 PM EDT 02/04/2017 4:56 PM EDT Bayron Oliva MD POINT OF CARE TEST O KORTNEYERAJAZZY Performing Organization Address [facility] Co de Phone Number [facility] [place] [address] * POCT Glucose (02/04/2017 11:40 AM EDT) Glucose, POC 157 65 - 199 mg/dL [facility] Comment: Supplemental ranges: <140 mg/dL before meals <180 mg/dL all other times of the day Blood specimen (specimen) 02/04/2017 11:40 AM EDT 02/04/2017 11:40 AM EDT Bayron Oliva MD POINT OF CARE TEST O RDERAJAZZY Performing Organization Address City/[facility] Co de Phone Number [facility] [place] [address] * POCT Glucose (02/04/2017 7:53 AM EDT) Glucose, POC 178 65 - 199 mg/dL [facility] Comment: Supplemental ranges: <140 mg/dL before meals <180 mg/dL all other times of the day Blood specimen (specimen) 02/04/2017 7:53 AM EDT 02/04/2017 7:53 AM EDT Bayron Oliva MD POINT OF CARE TEST O RDERABLES [facility] [place] [address] * EKG 12 Lead (02/04/2017 7:17 AM EDT) Ventricular rate 65 BPM MUSE SYSTEM Atrial Rate 65 BPM MUSE SYSTEM P-R Interval 248 ms MUSE SYSTEM QRS Duration 92 ms MUSE SYSTEM Q-T Interval 484 ms MUSE SYSTEM QTC Calculated (Bezet) 503 ms MUSE SYSTEM Calculated P [place] 29 degrees MUSE SYSTEM Calculated R [place] 99 degrees MUSE SYSTEM Calculated T [place] 140 degrees MUSE SYSTEM INTERPRETATION Sinus rhythm [...] interpretation Confirmed by fellow MD Katherine, Truong ([id number]) on 02/04/2017 9:02:44 AM Confirmed by MD RAUL, JOAN ([id number]) on 02/04/2017 10:47:37 AM MUSE SYSTEM 02/04/2017 7:17 AM EDT 02/04/2017 10:47 AM EDT Shoshana Moyer APRN ECG ORDERABLES MUSE SYSTEM * (ABNORMAL) Cardiac Enzymes (02/04/2017 3:33 AM EDT) Troponin-T 0.95(H) 0.00 - 0.00 ng/mL [facility] Comment: The 99th percentile for Troponin T is less than 0.01 ng/mL, any detectable cTnT concentration using this assay should be considered elevated. According to the third universal definition of myocardial infarction the following criteria with a clinical presentation consistent with acute myocardial ischemia meets the diagnosis for a myocardial infarction (MO). Detection of a rise and/or fall of cTnT, with at least one value greater than the 99th percentile (> or = 0.01) and with at least one of the following ?? Symptoms of ischemia ?? New or presumed new significant YE-kyqasyg-N wave (ST-T) changes or new left bundle [...] additional sample may be indicated. Reference: Third [place] Definition of Myocardial Infarction. Journal of the [place] [employer] 2012;60:1581-98 Creatine Kinase 421(H) 0 - 200 unit/L [facility] Blood specimen (specimen) Venous Draw / Unknown 02/04/2017 3:33 AM EDT 02/04/2017 3:50 AM EDT Narrative Resulting Agency Comment Spec In Lab Shoshana Moyer APRN CHEMISTRY ORDERABLES Performing Organization Address City/State/[facility] Co de Phone Number [facility] [place] [address] * (ABNORMAL) Differential, Automated (02/04/2017 3:33 AM EDT) Neutrophil % 70.9 % [facility] Neutrophil Absolute 10.32(H) 1.70 - 6.10 x10(3)/mc L [facility] Lymph % 17.5 % [facility] Lymphocytes Abs 2.6 0.9 - 3.2 x10(3)/mc L [facility] Monocyte % 8.8 % [facility] Monocyte Abs 1.3(H) 0.3 - 0.9 x10(3)/mc L [facility] Eos % 2.0 % [facility] Eosinophils Abs 0.3 0.0 - 0.4 x10(3)/mc L [facility] Basophil % 0.4 % [facility] Baso Absolute 0.1 0.0 - 0.1 x10(3)/[facility] Immature Gran % 0.40 % [facility] Comment: Immature granulocytes(IG's)percentage and absolute count will include metamyelocytes, myelocytes, and promyelocytes. Blood smears from CBCs yielding IG's will be scanned manually for concordance. If this scan disagrees with the automated IG or if promyelocytes are noted, a manual differential will be performed. Immature Gran Absolute 0.06(H) 0.00 - 0.04 x10(3)/[facility] Blood specimen (specimen) 02/04/2017 3:33 AM EDT 02/04/2017 3:50 AM EDT Narrative Resulting Agency Comment Spec In Lab Shoshana Moyer APRN HEMATOLOGY ORDERABLE S [facility] [place] [address] * (ABNORMAL) Hemogram (02/04/2017 3:33 AM EDT) White Blood Cell 14.6(H) 4.0 - 9.5 x10(3)/[facility] Red Blood Cell 4.65 4.58 - 5.54 x10(6)/[facility] Hemoglobin 14.6 13.7 - 16.5 gm/dL [facility] Hematocrit 41.8 40.5 - 48.5 % [facility] Mean Cell Volume 89.9 82.9 - 93.[address] [facility] Mean Cell Hemoglobin 31.4 27.5 - 32.[address] [facility] Mean Cell Hemoglobin Concentration 34.9 32.0 - 35.7 gm/dL [facility] Platelet 192 145 - 357 x10(3)/ L [facility] RDW Standard Deviation 38.6 36.0 - 45.[address] [facility] RDW coefficient of variation 11.8 11.4 - 13.8 % [facility] Mean Platelet Volume 10.1 7.6 - 12.[address] [facility] NRBC% auto 0.0 % [facility] NRBC Absolute 0.000 0.000 - 0.000 x10(3)/mc L [facility] Blood specimen (specimen) 02/04/2017 3:33 AM EDT 02/04/2017 3:50 AM EDT Narrative Resulting Agency Comment Spec In Lab Shoshana J King RADHA HEMATOLOGY ORDERABLE S [facility] [place] [address] * (ABNORMAL) BMP w/fasting Glucose (02/04/2017 3:33 AM EDT) Glucose Fasting 138(H) 65 - 99 mg/dL [facility] [...] of Diabetes Mellitus, Position Statement from the [place] [employer]. ??Diabetes Care, Volume 33, Supplement 1, May 2009 Blood Urea Nitrogen 15 10 - 20 mg/dL [facility] Creatinine 1.34 0.80 - 1.50 mg/dL [facility] Comment: Please note that the pediatric reference intervals supplied above were not validated at [facility]. Results from pediatric patients should be interpreted in conjunction to the patient's age, height and muscle mass. Sodium 139 135 - 145 mmol/L [facility] [...] mmol/L [facility] Anion Gap 14 5 - 15 mmol/L [facility] Calcium 8.7 8.5 - 10.5 mg/dL [facility] Est Glomerular Filtration Rate 51(L) >=60 [facility] Comment: This estimated GFR (eGFR) [...] the following links into your internet browser. [email or web address] Blood specimen (specimen) 02/04/2017 3:33 AM EDT 02/04/2017 3:50 AM EDT Narrative Resulting Agency Comment Spec In Lab Shoshana Moyer APRN CHEMISTRY ORDERABLES Performing Organization Address [facility] Co de Phone Number [facility] [place] [address] * Magnesium (02/04/2017 3:33 AM EDT) Magnesium 0.77 0.69 - 1.07 mmol/L [facility] Blood specimen (specimen) 02/04/2017 3:33 AM EDT 02/04/2017 3:50 AM EDT Narrative Resulting Agency Comment Spec In Lab Shoshana Moyer APRN CHEMISTRY ORDERABLES Performing Organization Address [facility] Co de Phone Number [facility] [place] [address] * (ABNORMAL) Hepatic Function Panel (02/04/2017 3:33 AM EDT) [facility] Protein, Total 6.1 6.1 - 8.0 gm/dL [facility] Albumin 3.7 3.2 - 5.2 gm/dL [facility] Aspartate Aminotransferase 57(H) 0 - 39 unit/L [facility] Alanine Aminotransferase 34 0 - 55 unit/L [facility] Alkaline Phosphatase 71 40 - 120 unit/L [facility] Bilirubin, Total 0.7 0.2 - 1.3 mg/dL [facility] Bilirubin, Direct 0.1 0.0 - 0.3 mg/dL [facility] Blood specimen (specimen) 02/04/2017 3:33 AM EDT 02/04/2017 3:50 AM EDT Narrative Resulting Agency Comment Spec In Lab Shoshana Roach João ELIGIBILITY AND OCCUPANCY INTERVIEWER CHEMISTRY ORDERABLES Performing Organization Address City/[facility]/ZIP Co de Phone Number [facility] [place] [address] * Triglyceride (02/04/2017 3:33 AM EDT) [facility] Triglyceride 171 <=199 mg/dL [facility] Blood specimen (specimen) 02/04/2017 3:33 AM EDT 02/04/2017 3:50 AM EDT Narrative Resulting Agency Comment Spec In Lab Shoshana Roach Viaziz Scam ELIGIBILITY AND OCCUPANCY INTERVIEWER CHEMISTRY ORDERABLES [facility] [place] [address] * (ABNORMAL) HDL/Cholesterol Profile (02/04/2017 3:33 AM EDT) [facility] Cholesterol, Total 106 <=239 mg/dL [facility] HDL Cholesterol 37(L) >=40 mg/dL [facility] Cholesterol/HDL Ratio 2.[address] [facility] Chol/HDL Interpretation See Note [facility] Comment: Lipid management should be guided by a patient? s ASCVD risk, goals and preferences. ACC/AHA Guidelines recommend high intensity statin if clinical ASCVD or LDL greater than or equal to 190 mg/dL. http://[employer].com/BQI-AAA-Ssrgucvcj Measure LDL if Total Cholesterol minus HDL Cholesterol is greater than 220 mg/dL. Adults aged 40-75 with LDL 70-189 mg/dL should have their 10 year ASCVD risk estimated with the ACC/AHA ASCVD risk yardage estimator http://tools.acc.org/QQMPX-Pkys-Ngvptokbz/ Statin should be discussed if risk greater [...] Moyer APRN CHEMISTRY ORDERABLES Performing Organization Address [facility] Co de Phone Number [facility] [place] [address] * LDL Cholesterol, Direct (02/04/2017 3:33 AM EDT) LDL Cholesterol, Direct 47 <=190 mg/dL [facility] Blood specimen (specimen) 02/04/2017 3:33 AM EDT 02/04/2017 3:50 AM EDT Narrative Resulting Agency Comment Spec In Lab Shoshana Moyer APRN CHEMISTRY ORDERABLES Performing Organization Address [facility] Co de Phone Number [facility] [place] [address] * (ABNORMAL) Hemoglobin A1c (02/04/2017 3:33 AM EDT) Hemoglobin A1c 6.2(H) 4.3 - 5.6 % [facility] [...] Mellitus, Diabetes Care 2013; 36: Suppl. 1, S67-29 Estimated Average Glucose See note mg/dL ST. [...] into estimated average glucose values. ??Diabetes Care 2008:31(8):2500-4712. Blood specimen (specimen) 02/04/2017 3:33 AM EDT 02/04/2017 3:50 AM EDT Narrative Resulting Agency Comment Spec In Lab Shoshana Moyer APRN CHEMISTRY ORDERABLES [facility] [place] [address] * EKG 12 Lead (02/03/2017 9:16 PM EDT) Ventricular rate 77 BPM MUSE SYSTEM Atrial Rate 77 BPM MUSE SYSTEM P-R Interval 222 ms MUSE SYSTEM QRS Duration 90 ms MUSE SYSTEM Q-T Interval 458 ms MUSE SYSTEM QTC Calculated (Bezet) 518 ms MUSE SYSTEM Calculated P [place] 29 degrees MUSE SYSTEM Calculated R [place] 98 degrees MUSE SYSTEM Calculated T [place] 118 degrees MUSE SYSTEM INTERPRETATION Sinus rhythm [...] Oliva MD ECG ORDERABLES Performing Organization Address [facility] Co de Phone Number MUSE SYSTEM * (ABNORMAL) Cardiac Enzymes (02/03/2017 9:00 PM EDT) [facility] Troponin-T 0.71(H) 0.00 - 0.00 ng/mL [facility] Comment: The 99th percentile for Troponin T is less than 0.01 ng/mL, any detectable cTnT concentration using this assay should be considered elevated. According to the third universal definition of myocardial infarction the following criteria with a clinical presentation consistent with acute myocardial ischemia meets the diagnosis for a myocardial infarction (MO). Detection of a rise and/or fall of cTnT, with at least one value greater than the 99th percentile (> or = 0.01) and with at least one of the following ?? Symptoms of ischemia ?? New or presumed new significant CT-zyzwqad-G wave (ST-T) changes or new left bundle [...] additional sample may be indicated. Reference: Third [place] Definition of Myocardial Infarction. Journal of the [place] College [employer]iology 2012;60:1581-98 Creatine Kinase 329(H) 0 - 200 unit/L [facility] Blood specimen (specimen) 02/03/2017 9:00 PM EDT 02/03/2017 9:05 PM EDT Narrative Resulting Agency Comment Spec In Lab Shoshana Moyer APRN CHEMISTRY ORDERABLES Performing Organization Address [facility]/ZIP Co de Phone Number [facility] [place] [address] * POCT Glucose (02/03/2017 8:29 PM EDT) Glucose, POC 197 65 - 199 mg/dL [facility] Comment: Supplemental ranges: <140 mg/dL before meals <180 mg/dL all other times of the day Blood specimen (specimen) 02/03/2017 8:29 PM EDT 02/03/2017 8:29 PM EDT Bayron Oliva MD POINT OF CARE TEST O RDERABLES [facility] [place] [address] * POCT Glucose (02/03/2017 4:54 PM EDT) Glucose, POC 144 65 - 199 mg/dL [facility] Comment: Supplemental ranges: <140 mg/dL before meals <180 mg/dL all other times of the day Blood specimen (specimen) 02/03/2017 4:54 PM EDT 02/03/2017 4:54 PM EDT aByron Oliva MD POINT OF CARE TEST O RDERABLES Performing Organization Address [facility] Co de Phone Number [facility] [place] [address] * EKG 12 Lead (02/03/2017 4:43 PM EDT) Ventricular rate 81 BPM MUSE SYSTEM Atrial Rate 81 BPM MUSE SYSTEM P-R Interval 226 ms MUSE SYSTEM QRS Duration 96 ms MUSE SYSTEM Q-T Interval 420 ms MUSE SYSTEM QTC Calculated (Bezet) 487 ms MUSE SYSTEM Calculated P [place] 30 degrees MUSE SYSTEM Calculated R [place] -20 degrees MUSE SYSTEM Calculated T [place] -19 degrees MUSE SYSTEM INTERPRETATION Sinus rhythm [...] Oliva MD ECG ORDERABLES Performing Organization Address [facility] de Phone Number MUSE SYSTEM * CARDIAC CATHETERIZATION (02/03/2017 4:26 PM EDT) Anatomical Region Laterality Modality Other Narrative 02/03/2017 4:43 PM EDT ?[facility] ? Cardiac Catheterization/Intervention Report ? Patient Name: Cesar Thompson. ? Procedure Date: 02/03/2017 ? A #: [id number] ? Primary Physician: Lydia Harden ? Case #: [id number] ? File Name: [id number] ? Catheterization Order Number: [id number] ? [facility] ? Final Report [place], [place] ? Patient Name: ? Gilbert D. Thompson ?ID#: ?[id number] ? : ?1935 ? Procedure Date: ? February 03, 2017 ?Case #: ? [id number] ? Room: ? 6 ? Case Physician: [...] with: non-STEMI (w/i 7 days). Citizen Of [place] ?Cardiovascular Society angina class was IV. This [...] dose administered prior to arrival in the label designer. ?Recommend continuing clopidogrel 75 mg PO daily [...] Procedure Note Lydia Harden MD - 08/08/2017 [facility] Cardiac Catheterization/Intervention Report Patient Name: Cesar Thompson Procedure Date: 02/03/2017 A #: [id number] Primary Physician: Lydia Harden Case #: [id number] File Name: [id number] Catheterization Order Number: [id number] [facility] FinalReport [place], [place] Patient Name: Cesar Thompson ID#:[id number] :1935 Procedure Date: February 03, 2017 Case [...] with: non-STEMI (w/i 7 days). Citizen Of [place] Cardiovascular Society angina class was IV. This [...] The lesion was predilated with a 2.50mm [id number] MM balloon with a maximum inflation pressure [...] dose administered prior to arrival in the label designer. Recommend continuing clopidogrel 75 mg PO daily [...] EDT) Troponin-T 0.48(H) 0.00 - 0.00 ng/mL [facility] Comment: The 99th percentile for Troponin T is less than 0.01 ng/mL, any detectable cTnT concentration using this assay should be considered elevated. According to the third universal definition of myocardial infarction the following criteria with a clinical presentation consistent with acute myocardial ischemia meets the diagnosis for a myocardial infarction (MO). Detection of a rise and/or fall of cTnT, with at least one value greater than the 99th percentile (> or = 0.01) and with at least one of the following ?? Symptoms of ischemia ?? New or presumed new significant BF-zocttyp-A wave (ST-T) changes or new left bundle [...] additional sample may be indicated. Reference: Third [place] Definition of Myocardial Infarction. Journal of the [place] College of Cardiology 2012;60:1581-98 Creatine Kinase 305(H) 0 - 200 unit/L [facility] Blood specimen (specimen) 02/03/2017 3:00 PM EDT 02/03/2017 3:22 PM EDT Narrative Resulting Agency Comment Spec In Lab Shoshana Moyer APRN CHEMISTRY ORDERABLES [facility] [place] [address] * TSH (02/03/2017 3:00 PM EDT) Thyroid Stimulating Hormone 1.18 0.27 - 4.20 mlU/ML [facility] Blood specimen (specimen) 02/03/2017 3:00 PM EDT 02/03/2017 3:22 PM EDT Narrative Resulting Agency Comment Spec In Lab Inder Medley MD CHEMISTRY ORDERABLES Performing Organization Address [facility]/ZIP Co de Phone Number [facility] [place] [address] * XR Chest PA & Lateral (Generic) [...] ?EDD Hatch ?(Age): 1935(81y) Med Rec#: ? [id number] ?Sex: ?M ? Site Loc: ? [facility] ?Ht / Wt: ??175(cm)/85(kg) Pt. Loc: ?Adult Floor ? BSA: ?2.01 Study Date: ?? 02/03/2017 ?Pt. Type: Inpatient Tape: ? Referring: CRISTAL Referring: Inder Medley Reading: Mason Beth ([id number]) Wet End Tester: Sonia Marcial Diagnosis: *ICD-10-PCS Non-ST elevation (NSTEMI) [...] ? Mid-Inferior ?Hypokinetic ? Mid-Inferoseptal ?Akinetic ? [place]-Septal ? Akinetic ? [place]-Anterior ? Akinetic ? [place]-Lateral ?Akinetic ? [place]-Inferior ? Akinetic ? [place]-Tip ?Akinetic ? This report has been electronically signed by: Mason Beth MD ? 02/03/2017 13:42:39 Images reviewed and interpretation verified [facility] Cardiac Ultrasound Laboratory Procedure Note Mason Beth MD - 02/03/2017 Procedure: Transthoracic Echocardiogram Patient: EDD Hatch (Age): 1935(81y) Med Rec#: [id number] Sex: M Site Loc: [facility] Ht / Wt: 175(cm)/85(kg) Pt. Loc: Adult Floor BSA: 2.01 Study Date: 02/03/2017 Pt. Type: Inpatient Tape: Referring: GRANTYEISON Referring: Inder Medley Reading: Mason Beth ([id number]) Wet End Tester: Sonia Marcial Diagnosis: *ICD-10-PCS Non-ST elevation (NSTEMI) [...] Hypokinetic Mid-Posterolateral Hypokinetic Mid-Inferior Hypokinetic Mid-Inferoseptal Akinetic [place]-Septal Akinetic [place]-Anterior Akinetic [place]-Lateral Akinetic [place]-Inferior Akinetic [place]-Tip Akinetic This report has been electronically signed by: Mason Beth MD 02/03/2017 13:42:39 Images reviewed and interpretation verified [facility] Cardiac Ultrasound Laboratory Inder Medley MD ECHO ORDERABLES * POCT Glucose (02/03/2017 11:50 AM EDT) [facility] Glucose, POC 138 65 - 199 mg/dL [facility] Comment: Supplemental ranges: <140 mg/dL before meals <180 mg/dL all other times of the day Blood specimen (specimen) 02/03/2017 11:50 AM EDT 02/03/2017 11:50 AM EDT Bayron Oliva MD POINT OF CARE TEST O RDERABLES Performing Organization Address [facility] Co de Phone Number [facility] [place] [address] * (ABNORMAL) APTT (02/03/2017 11:50 AM EDT) [facility] Partial Thromboplastin Time 54(H) 25 - [address] [facility] Comment: The recommended therapeutic range for full dose, unfractionated heparin at [facility] is 80 ? 114 seconds. The use of the anti-Xa (heparin) level rather than the PTT is recommended for monitoring anticoagulation intensity in critically ill patients receiving unfractionated heparin by continuous IV infusion. Blood specimen (specimen) 02/03/2017 11:50 AM EDT 02/03/2017 12:05 PM EDT Narrative Resulting Agency Comment Spec In Lab Shoshana Moyer APRN HEMATOLOGY ORDERABLE S Performing Organization Address City/[facility]/ZIP Co de Phone Number [facility] [place] [address] * POCT Glucose (02/03/2017 10:13 AM EDT) Glucose, POC 148 65 - 199 mg/dL [facility] Comment: Supplemental ranges: <140 mg/dL before meals <180 mg/dL all other times of the day Blood specimen (specimen) 02/03/2017 10:13 AM EDT 02/03/2017 10:13 AM EDT Inder Medley MD POINT OF CARE TEST O RDERABLES [facility] [place] [address] * (ABNORMAL) Differential, Automated (02/03/2017 9:35 AM EDT) Pathologist [facility] Neutrophil % 68.5 % [facility] Neutrophil Absolute 6.52(H) 1.70 - 6.10 x10(3)/mc L [facility] Lymph % 20.1 % [facility] Lymphocytes Abs 1.9 0.9 - 3.2 x10(3)/mc L [facility] Monocyte % 7.5 % [facility] Monocyte Abs 0.7 0.3 - 0.9 x10(3)/mc L [facility] Eos % 2.9 % [facility] Eosinophils Abs 0.3 0.0 - 0.4 x10(3)/mc L [facility] Basophil % 0.7 % [facility] Baso Absolute 0.1 0.0 - 0.1 x10(3)/mc L [facility] Immature Gran % 0.30 % [facility] Comment: Immature granulocytes(IG's)percentage and absolute count will include metamyelocytes, myelocytes, and promyelocytes. Blood smears from CBCs yielding IG's will be scanned manually for concordance. If this scan disagrees with the automated IG or if promyelocytes are noted, a manual differential will be performed. Immature Gran Absolute 0.03 0.00 - 0.04 x10(3)/mc L [facility] Blood specimen (specimen) 02/03/2017 9:35 AM EDT 02/03/2017 9:40 AM EDT Narrative Resulting Agency Comment Spec In Lab Shoshana Roach King RADHA HEMATOLOGY ORDERABLE S [facility] [place] [address] * Hemogram (02/03/2017 9:35 AM EDT) White Blood Cell 9.5 4.0 - 9.5 x10(3)/[facility] LABORATORY Red Blood Cell 4.99 4.58 - 5.54 x10(6)/[facility]ORATORY Hemoglobin 15.3 13.7 - 16.5 gm/dL [facility] Hematocrit 44.5 40.5 - 48.5 % [facility] Mean Cell Volume 89.2 82.9 - 93.1 [facility] Mean Cell Hemoglobin 30.7 27.5 - 32.[address] [facility] Mean Cell Hemoglobin Concentration 34.4 32.0 - 35.7 gm/dL [facility] Platelet 204 145 - 357 x10(3)/[facility] LABORATORY RDW Standard Deviation 37.7 36.0 - 45.0 [facility] RDW coefficient of variation 11.8 11.4 - 13.8 % [facility] Mean Platelet Volume 10.3 7.6 - 12.9 [facility] NRBC% auto 0.0 % [facility] NRBC Absolute 0.000 0.000 - 0.000 x10(3)/[facility] Blood specimen (specimen) 02/03/2017 9:35 AM EDT 02/03/2017 9:40 AM EDT Narrative Resulting Agency Comment Spec In Lab Shoshana J King RADHA HEMATOLOGY ORDERABLE S Performing Organization Address City/[facility]/ZIP Co de Phone Number [facility] [place] [address] * (ABNORMAL) Cardiac Enzymes (02/03/2017 9:35 AM EDT) Troponin-T 0.31(H) 0.00 - 0.00 ng/mL [facility] Comment: The 99th percentile for Troponin T is less than 0.01 ng/mL, any detectable cTnT concentration using this assay should be considered elevated. According to the third universal definition of myocardial infarction the following criteria with a clinical presentation consistent with acute myocardial ischemia meets the diagnosis for a myocardial infarction (MO). Detection of a rise and/or fall of cTnT, with at least one value greater than the 99th percentile (> or = 0.01) and with at least one of the following ?? Symptoms of ischemia ?? New or presumed new significant NC-whixqmp-I wave (ST-T) changes or new left bundle [...] additional sample may be indicated. Reference: Third [place] Definition of Myocardial Infarction. Journal of the [place] College [employer]iology 2012;60:1581-98 Creatine Kinase 264(H) 0 - 200 unit/L [facility] Blood specimen (specimen) 02/03/2017 9:35 AM EDT 02/03/2017 9:40 AM EDT Narrative Resulting Agency Comment Spec In Lab Shoshana J King RADHA CHEMISTRY ORDERABLES Performing Organization Address [facility]/ZIP Co de Phone Number [facility] [place] [address] * (ABNORMAL) pro-Brain Natriuretic Peptide (02/03/2017 9:35 AM EDT) NT-proBNP 1,411(H) <=450 pg/mL [facility] Blood specimen (specimen) 02/03/2017 9:35 AM EDT 02/03/2017 9:40 AM EDT Narrative Resulting Agency Comment Spec In Lab Shoshana Moyer RADHA CHEMISTRY ORDERABLES Performing Organization Address [facility] Co de Phone Number [facility] [place] [address] * (ABNORMAL) APTT (02/03/2017 9:35 AM EDT) Partial Thromboplastin Time 64(H) 25 - [address] [facility] Comment: The recommended therapeutic range for full dose, unfractionated heparin at [facility] is 80 ? 114 seconds. The use of the anti-Xa (heparin) level rather than the PTT is recommended for monitoring anticoagulation intensity in critically ill patients receiving unfractionated heparin by continuous IV infusion. Blood specimen (specimen) 02/03/2017 9:35 AM EDT 02/03/2017 9:40 AM EDT Narrative Resulting Agency Comment Spec In Lab Shoshana Roach King RADHA HEMATOLOGY ORDERABLE S Performing Organization Address [facility] de Phone Number [facility] [place] [address] * Prothrombin Time (02/03/2017 9:35 AM EDT) Prothrombin Time 14.1 12.0 - 15.[address] [facility] Comment: An INR <2.0 indicates [...] International Normalization Ratio 1.0 0.9 - 1.1 [facility] Blood specimen (specimen) 02/03/2017 9:35 AM EDT 02/03/2017 9:40 AM EDT Narrative Resulting Agency Comment Spec In Lab Shoshana Moyer APRN HEMATOLOGY ORDERABLE S [facility] [place] [address] * (ABNORMAL) Basic Metabolic Panel (non-fasting) (02/03/2017 9:35 AM EDT) Glucose 159 65 - 199 mg/dL [facility] Comment:Diabetes: >=200 mg/d L plus symptoms Blood Urea Nitrogen 15 10 - 20 mg/dL [facility] Creatinine 1.19 0.80 - 1.50 mg/dL [facility] Comment: Please note that the pediatric reference intervals supplied above were not validated at [facility]. Results from pediatric patients should be interpreted in conjunction to the patient's age, height and muscle mass. Sodium 140 135 - 145 mmol/L [facility] Potassium 4.0 3.5 - 5.0 mmol/L [facility] Comment: Please note: ??Patients with WBC >100,000 may have falsely elevated Potassium levels. ??For accurate Potassium quantification in these patients send serum separator tube (gold top) for subsequent determinations. ??Contact the Clinical Chemistry Laboratory if there are any questions. Chloride 103 98 - 107 mmol/L [facility] Carbon Dioxide 22 22 - 31 mmol/L [facility] Anion Gap 15 5 - 15 mmol/L [facility] Calcium 9.3 8.5 - 10.5 mg/dL [facility] Est Glomerular Filtration Rate 59(L) >=60 [facility] Comment: This estimated GFR (eGFR) [...] the following links into your internet browser. [email or web address] Blood specimen (specimen) 02/03/2017 9:35 AM EDT 02/03/2017 9:40 AM EDT Narrative Resulting Agency Comment Spec In Lab Shoshana Moyer APRN CHEMISTRY ORDERABLES Performing Organization Address [facility] Co de Phone Number [facility] [place] [address] * EKG 12 Lead (02/03/2017 9:23 AM EDT) Ventricular rate 71 BPM MUSE SYSTEM Atrial Rate 71 BPM MUSE SYSTEM P-R Interval 236 ms MUSE SYSTEM QRS Duration 96 ms MUSE SYSTEM Q-T Interval 448 ms MUSE SYSTEM QTC Calculated (Bezet) 486 ms MUSE SYSTEM Calculated P [place] -5 degrees MUSE SYSTEM Calculated R [place] -17 degrees MUSE SYSTEM Calculated T [place] 79 degrees MUSE SYSTEM INTERPRETATION Sinus rhythm with 1st degree A-V block Inferior infarct , age undetermined T wave abnormality, consider anterolateral ischemia Abnormal ECG When compared with ECG of 12-APR-2011 07:31, T wave inversion now evident in Anterolateral leads Confirmed by MD Elsie, Rosendo Walker ([id number]) on 02/04/2017 9:15:41 AM MUSE SYSTEM 02/03/2017 9:23 AM EDT 02/04/2017 9:15 AM EDT Shoshana Moyer APRN ECG ORDERABLES Performing Organization Address [facility] Co de Phone Number MUSE SYSTEM documented [...] Fri02/03/17 at 2159, Recovery (Recovery-Hospital Unit) [facility] 02/03/2017 4:57 PM EDT 100 mL/hr [...] Routine documented in this encounter Care Teams Chemical Etch Operator Relationship Specialty Start Date End Date Arely Moise MD [address] [place] [address] PCP - General Family Medicine 09/16/16 documented as of this encounter
--- OUTSIDE RECORDS SUMMARY | 2023-12-28 06:41 | XMS_ITS | Encounter Summary ---
Author Organization [facility] Address [facility] [place] [address] Care Team Providers Care Oxygen Therapist Name Role Phone Rolando Moise MD Primary Care Provider [phone] Encounter Details Date Type Department Care Team [...] 1:30 PM EDT Laboratory Appointment Lab [address] [place] [address] 01/02/2024 3:00 PM EDT Office Visit [place] [address] Adam Costa MD [facility] [place] [address] documented as of this encounter Visit Diagnoses Not on filedocumented in this encounter Care Teams Oxygen Therapist Relationship Specialty Start Date End Date Rolando Moise MD [facility] [place] [id number] PCP - General Family Medicine 09/16/16 documented as of this encounter
--- OUTSIDE RECORDS SUMMARY | 2023-12-28 06:41 | XMS_ITS | Encounter Summary ---
Author Organization [facility] Address [facility] [place] [address] Care Team Providers Care Flour Tester Name Role Phone Rolando Moise MD Primary Care Provider [phone] Reason for Visit * Reason Onset Date Comments Other 11/10/2020 Encounter Details Date Type Department Care Team (Late st Contact Info) Description 11/10/2020 Telephone Cardiology at [address] [phone] Antonia Martin, RN Other Social History Tobacco [...] PM EDT Call from Mercedes SANDERS from [facility] [phone],questions regarding [facility] discharge (yesterday 11/09/20) medications. Return call to Mercedes,voice message left directing her to contact [facility] -contact # given. public health program manager while inpatient Penny Bee RN. documented in this encounter Plan of Treatment Upcoming Encounters Date Type Department Care Team (Latest Contact Info) Description 01/02/2024 1:30 PM EDT Laboratory Appointment Lab [address] [place] [address] 01/02/2024 3:00 PM EDT Office Visit Nephrology [place] [address] Adam Costa MD [facility] [place] [address] documented as of this encounter Visit Diagnoses Not on filedocumented in this encounter Care Teams Flour Tester Relationship Specialty Start Date End Date Rolando Moise MD [address] [place] [address] [place] [address] PCP - General Family Medicine 09/16/16 documented as of this encounter
--- OUTSIDE RECORDS SUMMARY | 2023-12-28 06:42 | XMS_ITS | Encounter Summary ---
Author Organization [facility] Address [facility] [place] [address] Care Team Providers Care Fuller Brush Worker Name Role Phone Rolando Zacarias MD Primary Care Provider [phone] Encounter Details Date Type Department Care Team (Late st Contact Info) Description 10/07/2012 Orders [place] [phone] Skye Washington RN S/P aortic aneurysm repair [...] 1:30 PM EDT Laboratory Appointment Lab [address] [place] [phone] 01/02/2024 3:00 PM EDT Office Visit [place] [phone] Adam Costa MD [facility] [place] [address] documented as of this encounter Visit Diagnoses Diagnosis S/P aortic aneurysm repair- Primary Other postprocedural status documented in this encounter Care Teams Fuller Brush Worker Relationship Specialty Start Date End Date Rolando Zacarias MD PCP - General 04/12/11 09/15/16 documented as of this encounter
--- OUTSIDE RECORDS SUMMARY | 2023-12-28 06:42 | XMS_ITS | Encounter Summary ---
Author Organization [facility] Address [facility] [place] [address] Care Team Providers Care Transit Mixer Driver Name Role Phone Rolando Zacarias MD Primary Care Provider [phone] Reason for Visit * Reason Comments Aneurysm (Aortic) Encounter Details Date Type Department Care Team (Late st Contact Info) Description 08/11/2014 10:30 AM EDT Follow-[place] [address] Steven Borges MD [facility] [place] [address] AAA (abdominal aortic aneurysm) Discharge Disposition: Home [...] of aortic aneurysm, using Cook Zenith Flex [id number] via right; ipsilateral extension with TFLE 16-56; [...] 1:30 PM EDT Laboratory Appointment Lab [address] [place] [address] 01/02/2024 3:00 PM EDT Office Visit [place] [address] Adam Costa MD [facility] [place] [address] documented as of this encounter Procedures Procedure Name Priority Date/Time Associated Diagnosis Comments CREATININE Routine 08/11/2014 8:52 AM EDT AAA (abdominal aortic aneurysm) documented in this encounter Results * (ABNORMAL) Creatinine (08/11/2014 8:52 AM EDT) Creatinine 1.38 0.80 - 1.50 mg/dL [facility] Comment: Please note that the pediatric reference intervals supplied above were not validated at [facility]. Results from pediatric patients should be interpreted in conjunction to the patient's age, height and muscle mass. Est Glomerular Filtration Rate 50(L) >=60 [facility] Comment: This estimated GFR (eGFR) value [...] the following links into your internet browser. [email or web address]/DHnkdep [email or web address] Blood specimen (specimen) 08/11/2014 8:52 AM EDT 08/11/2014 9:00 AM EDT Narrative Resulting Agency Comment Spec In Lab Steven Borges MD CHEMISTRY ORDERABLES [facility] documented in this encounter Visit Diagnoses Diagnosis AAA (abdominal aortic aneurysm) Abdominal aneurysm without mention of rupture documented in this encounter Care Teams Transit Mixer Driver Relationship Specialty Start Date End Date Rolando Zacarias MD PCP - General 04/12/11 09/15/16 documented as of this encounter
--- OUTSIDE RECORDS SUMMARY | 2023-12-28 06:42 | XMS_ITS | Encounter Summary ---
Author Organization [facility] Address [facility] [place] [address] Care Team Providers Care Occupational Health And Safety Officer Name Role Phone Rolando Zacarias MD Primary Care Provider [phone] Encounter Details Date Type Department Care Team (Latest Contact Info) Description 08/11/2014 9:05 AM EDT - 08/11/2014 11:59 PM EDT Hospital Encounter CT Scan at [facility] [place] [phone] CLINIC, DR WATKINS AAA (abdominal aortic aneurysm) [...] mg by mouth 3 times daily. 02/03/2017 Jones-3 Fatty Acids-Vitamin E (FISH OIL) 1,000 mg [...] CT Scan on 08/11/2014 @ 9:40AM Per [facility] Policy it is important that you stop taking your Metformin (Diabetic Medication) for 2 days following the injection of IV iodinated contrast. You canstart taking your Metformin on 08/13/2014. If you have any questions or concerns, contact your primary care provider. Also drink plenty of water following your CT Scan to help clear the IV Iodinated contrast out of your body. Thank You, [facility] CT Scan Dept documented in this encounter Plan of Treatment Upcoming Encounters Date Type Department Care Team (Latest Contact Info) Description 01/02/2024 1:30 PM EDT Laboratory Appointment Lab [address] [place] [address] 01/02/2024 3:00 PM EDT Office Visit [place] [address] Adam Costa MD [facility] [place] [address] documented as of this encounter Procedures Procedure [...] less conspicuous on the current study. Stable ramona aneurysm sac size. Findings noted previously of either resolving or very early proximal sigmoid diverticulitis without perforation or abscess are stable. 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 Maximum caliber of the ramona abdominal aortic aneurysm sac unchanged, currently measuring 7.7 x 5.6 cm compared to prior of 7.6 x 5.5 cm. In 2011, this measured 7.6 x 5.3 cm. Contrast extravasation into the ramona abdominal aortic aneurysm sac evident only on [...] repair of aortic aneurysm,using Cook Zenith Flex [id number]-21-46-ZT via right ipsilateral extension with BGMH50-03 contralateral extension with TFLE 16-73; Apr 12, [...] distal limbs stable. Maximum caliber of the ramona abdominalaortic aneurysm sac unchanged, currently measuring 7.7 x 5.6 cm compared to priorof 7.6 x 5.5 cm. In 2011, this measured 7.6 x 5.3 cm. Contrast extravasationinto the ramona abdominal aortic aneurysm sac evident only on [...] mg documented in this encounter Care Teams Occupational Health And Safety Officer Relationship Specialty Start Date End Date Rolando Zacarias MD PCP - General 04/12/11 09/15/16 documented as of this encounter
--- OUTSIDE RECORDS SUMMARY | 2023-12-28 06:42 | XMS_ITS | Encounter Summary ---
Author Organization [facility] Address [facility] [place] [address] Care Team Providers Care Payroll Secretary Name Role Phone Rolando Zacarias MD Primary Care Provider [phone] Reason for Visit * Reason Comments Aneurysm (Aortic) Encounter Details Date Type Department Care Team (Late st Contact Info) Description 04/23/2011 3:20 PM EST Office Visit [place] [phone] Steven Borges MD [facility] [place] [address] AAA (abdominal aortic aneurysm) without rupture (Primary [...] 1:30 PM EDT Laboratory Appointment Lab [address] [place] [address] 01/02/2024 3:00 PM EDT Office Visit Nephrology [place] [address] Adam Costa MD [facility] [place] [address] documented as of this encounter Visit Diagnoses Diagnosis AAA (abdominal aortic aneurysm) without rupture- Primary Abdominal aneurysm without mention of rupture documented in this encounter Care Teams Payroll Secretary Relationship Specialty Start Date End Date Rolando Zacarias MD PCP - General 04/12/11 09/15/16 documented as of this encounter
--- OUTSIDE RECORDS SUMMARY | 2023-12-28 06:42 | XMS_ITS | Encounter Summary ---
Author Organization [facility] Address [facility] [place] [address] Care Team Providers Care Apartment Groundskeeper Name Role Phone Rolando Zacarias MD Primary Care Provider Reason for Visit * Reason Comments Follow-up AAA surveillance Encounter Details Date Type Department Care Team (Late st Contact Info) Description 10/22/2011 1:00 PM EDT Follow-[place] [phone] CLINIC, Steven Barahona MD [facility] [place] [address] AAA (abdominal aortic aneurysm) (Primary Dx) Discharge [...] of aortic aneurysm, using Cook Zenith Flex [id number]-[id number] via right; ipsilateral extension with TFLE 16-56; contralateral extension with TFLE 16-73. Pex: NAD Studies: CTA reveals graft in good position, no leaks, no interval growth of sac Assessment / Plan: Doing well. Follow-up one year with CTA documented in this encounter Plan of Treatment Upcoming Encounters Date Type Department Care Team (Latest Contact Info) Description 01/02/2024 1:30 PM EDT Laboratory Appointment Lab [address] [address] 01/02/2024 3:00 PM EDT Office Visit [place] [address] Adam Costa MD [facility] [place] [address] documented as of this encounter Results * [...] artery remains patent. 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 ??The [place] abdominal aortic aneurysm sac has decreased in [...] artery remains patent. Maximum caliber of the [place] abdominal aortic aneurysm sac has decreased from [...] due theinflow from an ileolumbar artery. The [place] abdominal aortic aneurysm sac has decreased in size. Very early or resolving proximal sigmoid diverticulitis withoutperforation or abscess. Steven Borges MD IMG CT ORDERABLES documented in this encounter Visit Diagnoses Diagnosis AAA (abdominal aortic aneurysm)- Primary Abdominal aneurysm without mention of rupture AAA (abdominal aortic aneurysm) Abdominal aneurysm without mention of rupture documented in this encounter Care Teams Apartment Groundskeeper Relationship Specialty Start Date End Date Rolando Zacarias MD PCP - General 04/12/11 09/15/16 documented as of this encounter
--- OUTSIDE RECORDS SUMMARY | 2023-12-28 06:42 | XMS_ITS | Encounter Summary ---
Author Organization [facility] [place] [address] Care Team Providers Care Check Airman Name Role Phone Rolando Moise MD Primary Care Provider [phone] Encounter Details Date Type Department Care Team (Latest Contact Info) Description 09/16/2016 9:51 AM EDT - 09/16/2016 11:59 PM EDT Hospital [place] [address] Susana Snyder, RVT Abdominal aortic aneurysm (AAA) [...] mg by mouth 3 times daily. 02/03/2017 [place]-3 Fatty Acids-Vitamin E (FISH OIL) 1,000 mg [...] 01/02/2024 1:30 PM EDT Laboratory Appointment Lab [place] [address] 01/02/2024 3:00 PM EDT Office Visit [place] [address] Adam Costa MD [facility] [place] [place] [address] documented as of this encounter Procedures Procedure Name Priority Date/Time Associated Diagnosis Comments ENDO-VASCULAR AAA REPAIR Routine 09/16/2016 10:07 AM EDT Abdominal aortic aneurysm (AAA) without rupture documented in this encounter Results * Endo-vascular AAA repair (09/16/2016 10:07 AM EDT) VB Text Report Department: Vascular Surgery Lab Patient: [id number] (CALI THOMPSON) CPT: 13046 ICD10: I71.4 Referring Physician: ACACIA BORGES ?? [...] Borges MD VASCULAR ORDERABLES Performing Organization Address City/State/[facility] Co de Phone Number [employer]ASCU[employer] documented in this encounter Visit Diagnoses Diagnosis Abdominal aortic aneurysm (AAA) without rupture documented in this encounter Care Teams Check Airman Relationship Specialty Start Date End Date Rolando Moise MD [facility] [place] [address] PCP - General Family Medicine 09/16/16 documented as of this encounter
--- OUTSIDE RECORDS SUMMARY | 2023-12-28 06:42 | XMS_ITS | Encounter Summary ---
Author Organization [facility] Address [facility] [place] [address] Care Team Providers Care Java Golden Gate Developer Name Role Phone Rolando Zacarias MD Primary Care Provider [phone] Encounter Details Date Type Department Care Team (Latest Contact Info) Description 04/23/2011 2:32 PM EST - 04/23/2011 11:59 PM [facility] Hospital [place] [address] CLINIC, Steven Barahona MD [facility] [place] [address] AAA (abdominal aortic aneurysm) Discharge Disposition: Home [...] a CT Scan on @ ____AM/PM. Per [facility] Policy it is important that you stop taking your (Diabetic Medication) for 2 days following the injection of IV iodinated contrast. You can start taking your in the AM/PM. If you have any questions or concerns, contact your primary care provider. Also drink plenty of water following your CT Scan to help clear the IV Iodinated contrast out of your body. Thank You, [facility] CT Scan Dept documented in this encounter Plan of Treatment Upcoming Encounters Date Type Department Care Team (Latest Contact Info) Description 01/02/2024 1:30 PM EDT Laboratory Appointment Lab [address] [place] [address] 01/02/2024 3:00 PM EDT Office Visit Neph[place] [address] Adam Costa MD [facility] [place] [place] [address] documented as of this encounter Procedures Procedure [...] iliac arteries. The greatest dimensions of the [place] aneurysm sac are 7.9 x 5.6 cm. [...] iliac arteries. The greatest dimensions of the [place] aneurysm sac are 7.9 x 5.6cm. On [...] mg documented in this encounter Care Teams Java Golden Gate Developer Relationship Specialty Start Date End Date Rolando Zacarias MD PCP - General 04/12/11 09/15/16 documented as of this encounter
--- OUTSIDE RECORDS SUMMARY | 2023-12-28 06:42 | XMS_ITS | Encounter Summary ---
Author Organization [facility] [place] [address] Care Team Providers Care Fashion Coordinator Name Role Phone Rolando Moise MD Primary Care Provider [phone] Reason for Visit * Auth/Cert Specialty Diagnoses / Procedures Referred By Contac t Referred To Contact Diagnoses NSTEMI (non-ST elevated myocardial infarction) NSTEMI ?CAD Procedures CARDIAC CATHETERIZATION Referral ID Status Reason Start Date Expiration Date Visits Re quested Visits Authorized [id number] 1 1 Encounter Details Date Type Department Care Team (Latest Contact Info) Description 02/03/2017 11:45 AM EDT - 02/03/2017 11:59 PM EDT Hospital Encounter [place] [phone] Discharge Disposition: Home Social History Tobacco Use [...] Take 20 mg by mouth daily. 02/05/2017 [place]-3 Fatty Acids-Vitamin E (FISH OIL) 1,000 mg Cap Take by mouth daily. Reported on 09/16/2016 02/05/2017 metFORMIN (GLUCOPHAGE) 500 mg tablet Take 500 mg by mouth 2 times daily (with meals). 11/09/2020 documented as of this encounter Plan of Treatment Upcoming Encounters Date Type Department Care Team (Latest Contact Info) Description 01/02/2024 1:30 PM EDT Laboratory Appointment Lab [address] [place] [address] 01/02/2024 3:00 PM EDT Office Visit Nephrology [place] [address] Adam Costa MD [facility] [place] [address] documented as of this encounter Procedures Procedure [...] mLs documented in this encounter Care Teams Fashion Coordinator Relationship Specialty Start Date End Date Rolando Moise MD [facility] [place] [address] PCP - General Family Medicine 09/16/16 documented as of this encounter
--- OUTSIDE RECORDS SUMMARY | 2023-12-28 06:42 | XMS_ITS | Encounter Summary ---
Author Organization [facility] Address [facility] [place] [address] Care Team Providers Care Packing And Final Assembly Supervisor Name Role Phone Rolando Zacarias MD Primary Care Provider [phone] Reason for Visit * Reason Comments Follow-up AAA surveillance Encounter Details Date Type Department Care Team (Late st Contact Info) Description 10/06/2012 1:00 PM EDT Follow-[place] [phone] CLINIC, Steven Barahona MD [facility] [place] [address] AAA (abdominal aortic aneurysm) (Primary Dx) Discharge [...] of aortic aneurysm, using Cook Zenith Flex [id number]-01-46-ZT via right; ipsilateral extension with TFLE 16-56; [...] 01/02/2024 1:30 PM EDT Laboratory Appointment Lab [address] [address] 01/02/2024 3:00 PM EDT Office Visit [place] [address] Adam Costa MD [facility] [place] [address] documented as of this encounter Visit Diagnoses Diagnosis AAA (abdominal aortic aneurysm)- Primary Abdominal aneurysm without mention of rupture documented in this encounter Care Teams Packing And Final Assembly Supervisor Relationship Specialty Start Date End Date Rolando Zacarias MD PCP - General 04/12/11 09/15/16 documented as of this encounter
--- OUTSIDE RECORDS SUMMARY | 2023-12-28 06:42 | XMS_ITS | Encounter Summary ---
Author Organization [facility] Address [facility] [place] [address] Care Team Providers Care Financial Analyst Name Role Phone Rolando Moise MD Primary Care Provider [phone] Reason for Visit * Reason Comments Aneurysm (Aortic) Encounter Details Date Type Department Care Team (Late st Contact Info) Description 09/16/2016 2:00 PM EDT Office [place] [phone] Erik Gill MD [facility] [place] [address] Abdominal aortic aneurysm (AAA) without rupture Social [...] of aortic aneurysm, using Cook Zenith Flex [id number]-01-84-ZT via right; ipsilateral extension with TFLE 16-56; [...] PM EDT Laboratory Appointment Lab [address] [place] [address] 01/02/2024 3:00 PM EDT Office Visit [place] [address] Adam Costa MD [facility] [place] [address] documented as of this encounter Visit Diagnoses Diagnosis Abdominal aortic aneurysm (AAA) without rupture documented in this encounter Care Teams Financial Analyst Relationship Specialty Start Date End Date Rolando Moise MD [address] [place] [address] PCP - General Family Medicine 09/16/16 documented as of this encounter
--- OUTSIDE RECORDS SUMMARY | 2023-12-28 06:42 | XMS_ITS | Encounter Summary ---
Author Organization [facility] Address [facility] [place] [address] Care Team Providers Care Medical Affairs Manager Name Role Phone Rolando Moise MD Primary Care Provider [phone] Encounter Details Date Type Department Care Team (Late st Contact Info) Description 02/03/2017 [place] [phone] Jeanette Betancourt MD [facility] [place] [address] Social History Tobacco Use Types Packs/Day Years [...] Referring Provider: Dr. Emanuel Osei Patient Location: [facility] Past Medical History: Patient Active Problem List Diagnosis Code ??? AAA (abdominal aortic aneurysm) I71.4 ??? HTN (hypertension) I10 ??? NIDDM (non-insulin dependent diabetes mellitus) ??? S/P hernia repair Z98.890, Z87.19 Presenting Symptoms per OSH: 81 yo man with hx of HTN, HLD, NIDDM and AAA s/p stenting who presents to [facility] with chest discomfort in the upper [...] have personally reviewed EKGs. Jeanette Betancourt MD Pill Machine Operator PGY-4 Pager: [phone] documented in this encounter Plan of Treatment Upcoming Encounters Date Type Department Care Team (Latest Contact Info) Description 01/02/2024 1:30 PM EDT Laboratory Appointment Lab [address] [place] [address] 01/02/2024 3:00 PM EDT Office Visit [place] [address] Adam Costa MD [facility] [place] [address] documented as of this encounter Visit Diagnoses Not on filedocumented in this encounter Care Teams Medical Affairs Manager Relationship Specialty Start Date End Date Rolando Moise MD [facility] [place] [address] PCP - General Family Medicine 09/16/16 documented as of this encounter
--- OUTSIDE RECORDS SUMMARY | 2023-12-28 06:42 | XMS_ITS | Encounter Summary ---
Author Organization [facility] Address [facility] [place] [address] Care Team Providers Care Signal Tower Director Name Role Phone Rolando Zacarias MD Primary Care Provider [phone] Encounter Details Date Type Department Care Team (Late st Contact Info) Description 10/22/2011 11:51 AM EDT - 10/22/2011 11:59 PM EDT Hospital Encounter CT Scan at [facility] [place] [phone] Social History Tobacco Use Types Packs/Day Years [...] had a CT Scan on @ Per [facility] Policy it is important that you stop [...] contrast out of your body. Thank You, [facility] CT Scan Dept * Ancillary Services Notes - Armani Stewart - 10/22/2011 12:02 PM EDT You had a CT Scan on @ Per [facility] Policy it is important that you stop [...] contrast out of your body. Thank You, [facility] CT Scan Dept documented in this encounter Plan of Treatment Upcoming Encounters Date Type Department Care Team (Latest Contact Info) Description 01/02/2024 1:30 PM EDT Laboratory Appointment Lab [address] [address] 01/02/2024 3:00 PM EDT Office Visit [place] [address] Adam Costa MD [facility] [place] [address] documented as of this encounter Procedures Procedure [...] mg documented in this encounter Care Teams Signal Tower Director Relationship Specialty Start Date End Date Rolando Zacarias MD PCP - General 04/12/11 09/15/16 documented as of this encounter
--- OUTSIDE RECORDS SUMMARY | 2023-12-28 06:42 | XMS_ITS | Encounter Summary ---
Author Organization [facility] Address [facility] [place] [address] Care Team Providers Care Pharmacist Helper Name Role Phone Rolando Zacarias MD Primary Care Provider [phone] Encounter Details Date Type Department Care Team (Late st Contact Info) Description 07/17/2016 Orders Only [place] [phone] Esme Copeland CMA Abdominal aortic aneurysm (AAA) [...] 1:30 PM EDT Laboratory Appointment Lab [address] [place] [phone] 01/02/2024 3:00 PM EDT Office Visit Ne[place] [address] Adam Costa MD [facility] [place] [address] documented as of this encounter Results * Endo-vascular AAA repair (09/16/2016 10:07 AM EDT) VB Text Report Department: Vascular Surgery Lab Patient: [id number] (CALI THOMPSON) CPT: 34987 ICD10: I71.4 Referring Physician: ACACIA BORGES ?? [...] rupture documented in this encounter Care Teams Pharmacist Helper Relationship Specialty Start Date End Date Rolando Zacarias MD PCP - General 04/12/11 09/15/16 documented as of this encounter
--- OUTSIDE RECORDS SUMMARY | 2023-12-28 06:42 | XMS_ITS | Encounter Summary ---
Author Organization [facility] Address [facility] [place] [address] Care Team Providers Care Airplane Gastank Liner Assembler Name Role Phone Rolando Zacarias MD Primary Care Provider [phone] Encounter Details Date Type Department Care Team (Latest Contact Info) Description 10/06/2012 12:00 PM EDT - 10/06/2012 11:59 PM EDT Hospital [place] [phone] AAA (abdominal aortic aneurysm) Social History Tobacco [...] Sig Dispensed Refills Start Date End Date Orofino-3 Fatty Acids-Vitamin E (FISH OIL) 1,000 mg [...] CT Scan on 6-4 @ 12pm Per [facility] [...] 01/02/2024 1:30 PM EDT Laboratory Appointment Lab [address] [place] [phone] 01/02/2024 3:00 PM EDT Office Visit [place] [address] Adam Costa MD [facility] [place] [address] documented as of this encounter Procedures Procedure [...] artery remains patent. 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 ??The port lions abdominal aortic aneurysm sac has decreased in [...] artery remains patent. Maximum caliber of the port lions abdominal aortic aneurysm sac has decreased from [...] due theinflow from an ileolumbar artery. The port lions abdominal aortic aneurysm sac has decreased in [...] mg documented in this encounter Care Teams Airplane Gastank Liner Assembler Relationship Specialty Start Date End Date Rolando Zacarias MD PCP - General 04/12/11 09/15/16 documented as of this encounter
--- OUTSIDE RECORDS SUMMARY | 2023-12-28 06:42 | XMS_ITS | Encounter Summary ---
Author Organization [facility] [place] [address] Care Team Providers Care Heel Lift Gouger Name Role Phone Rolando Moise MD Primary Care Provider [phone] Encounter Details Date Type Department Care Team (Late st Contact Info) Description 02/03/2017 External [place] [phone] Jeanette Betancourt MD [facility] [address] Social History Tobacco Use Types Packs/Day Years [...] 1:30 PM EDT Laboratory Appointment Lab [address] [place] [phone] 01/02/2024 3:00 PM EDT Office Visit Nephrology [place] [phone] Adam Costa MD [facility] [place] [address] documented as of this encounter Procedures Procedure Name Priority Date/Time Associated Diagnosis Comments ECG SCAN Routine 02/03/2017 documented in this encounter Results * Scan Doc: ECG (02/03/2017) Jeanette Betancourt MD MEDIA MGR SCAN EXT O RDR/RSLT documented in this encounter Visit Diagnoses Not on filedocumented in this encounter Care Teams Heel Lift Gouger Relationship Specialty Start Date End Date Rolando Moise MD [facility] [place] [address] PCP - General Family Medicine 09/16/16 documented as of this encounter
--- OUTSIDE RECORDS SUMMARY | 2023-12-28 06:42 | XMS_ITS | Encounter Summary ---
Author Organization [facility] Address [facility] [place] [address] Care Team Providers Care Airline Reservation Agent Name Role Phone Arely Moise MD Primary Care Provider [phone] Reason for Visit * Auth/Cert Specialty Diagnoses / Procedures Referred By Contac t Referred To Contact Diagnoses NSTEMI (non-ST elevated myocardial infarction) NSTEMI ?CAD Procedures CARDIAC CATHETERIZATION Referral ID Status Reason Start Date Expiration Date Visits Re quested Visits Authorized [id number] 1 1 Encounter Details Date Type Department Care Team (Late st Contact Info) Description 02/03/2017 2:40 PM EDT - 02/03/2017 3:40 PM EDT Surgery Ladle Pourer [facility] [place] [id number] Lydia Harden MD [facility] [place] [id number] CARDIAC CATHETERIZATION Social History Tobacco Use Types [...] Cesar Thompson Patient Age: 81 y.o. Language: Ukrainian Race: White Ethnicity: Not nor Admit date: 02/03/2017 Discharge date and time: 02/05/2017 Attending Physician: Bayron Oliva MD Discharge Physician: Bayron Oliva MD Follow-up Recommendations for Providers: 1. Continue clopidogrel 75 mg and aspirin 81 mg PO daily for 12 months otherwise told differently by Transmission Line Engineer. 2. Please monitor heart rate and blood pressure. 3. Start metoprolol XL 100 mg daily 4. Discontinue verapamil 120 mg tablet PO 5. Resume metformin 500 mg tablet PO two times a day, needs to take his second metformin dose tonight. Inpatient Provider Contact Information: Lili Ryan PA-C [facility] Provider # [id number] Discharge Diagnoses (Hospital Problems) and Secondary Diagnoses [...] above for more information.) History of Presentation: [facility] Comments: Mr. Thompson is an 81-year-old male with a past medical history of hypertension, AAA, hyperlipidemia and diabetes mellitus [id number]-[id number] who presented to [facility] with complaint of inability to sleep [...] to the ED. He drove himself. ?? [facility] did an EKG which showed [...] is most likely a non-STEMI. ED called [facility] cardiology which recommended to start Plavix 300 mg orally and was started to heparin per ACS protocol. ?? Hospital Course: On admission to [facility], the patient had complaints of chest pain and some shortness of breath with exertion. Telemetry was attached which showed normal sinus rhythm. Heparin drip was infusing. [facility] records/transfer records were reviewed. Baseline labs were checked and/or drawn. NSTEMI Given the patient's risk factors and ECG changes, positive biomarkers, it was decided to proceed with coronary angiography. The patient went to the cardiac laboratory engineer for a diagnostic cath which showedone vessel [...] 2:00 PM Shoshana Gaspar APRN Cardiology at [place] [phone] Future Orders Complete By Expires Referral to Cardiac Rehab [[id number] Custom] As directed Process Instructions: If no progress note charted, please enter Clinical details in comments. Scheduling Instructions: Questions: My question or request is: NSTEMI, PCI. Cardiac rehab at [facility] Discharge References/Attachments MYRA INHIBITORS AND ARBS: GENERAL INFO (KOSOVAN) PCI (PERCUTANEOUS CORONARY INTERVENTION): POST-OP (KOSOVAN) HYPERTENSION: GENERAL INFO (KOSOVAN) Lili Ryan PA-C 02/05/2017 documented in this encounter Discharge Instructions * Discharge Instructions* Shoshana Gaspar APRN - 02/05/2017 10:31 AM EDT Anti-coagulation follow up: Continue on plavix and aspirin for at least 12 months until otherwise told by his Transmission Line Engineer. Call your doctor if: Chest pain, shortness of breath, pain or swelling in legs occurs. If you have non-emergent questions between now and the time of your follow up appointments: During 8am-5pm Friday through Friday call [phone] to speak with a nurse in the cardiology clinic All other times call [phone] and ask to speak to the telephone service adviser distribution system operator. Return to work: One week Driving: No driving for 48 hours after catheterization. Follow up Appointments: PCP Arely Moise MD [phone] Your follow up appointment is scheduled for February 12, 2017 at 10:00 am Cardiology [facility] : Shoshana Gaspar NP Your follow up [...] Progress Note Patient Name: Cesar Thompson Service: YARDAGE ESTIMATOR / PA Responsible Attending: Bayron Oliva MD [...] 81 mg daily for 12 months per associate technician. - continue Atorvastin, lisinopril. - Discontinue short [...] throughout the shift. 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 PLAN MOVING FORWARD: [...] Progress Note Patient Name: Cesar Thompson Service: YARDAGE ESTIMATOR / PA Responsible Attending: Bayron Oliva MD [...] 81 mg daily for 12 months per associate technician. - continue Atorvastin 40 mg daily - [...] of hypertension, AAA, hiperlididemia and diabetes mellitus [id number]-[id number]-onlpelseg who presented to [facility] with complaint of inability to sleep [...] go to the ED. He drove himself. [facility] did an EKG which showed [...] is most likely a non-STEMI. ED called [facility] cardiology which recommended to start Plavix 300 [...] ANEURYSM, S&I performed by ACACIA BRYANT at [facility] OR ??? PRO AAA REPAIR, 1ST VESSEL, EXTENSION PROSTH 04/12/2011 @EVG-PLACEMENT, CUFF OR EXT. AORTIC OR ILIAC ANEURYSM REPAIR, GORE performed by ACACIA BRYANT at [facility] OR ??? PRO AAA REPAIR, MODULR BIFUR PROSTH, 2-DOCK 04/12/2011 @EVG, AAA, W\ MODULAR BIFURCATED PROS. W\ 2 DOCKING LIMBS performed by ACACIA BRYANT at [facility] OR ??? PRO AAA REPR, EXPOSE FEMORAL ART, GROIN INCIS 04/12/2011 @EXPOSURE, OPEN FEM. ARTERY FOR ENDOVASCULAR PROSTHESIS, GROIN-FABIANA performed by ACACIA BRYANT at [facility] OR ? ? PRO ENDOVASC REPAIR [...] Take 0.4 mg by mouth daily. ??? [place]-3 Fatty Acids-Vitamin E (FISH OIL) 1,000 mg [...] of hypertension, AAA, hiperlididemia and diabetes mellitus [id number]-lfxdphajk who presents to [facility] with complaint of inability to sleep [...] -check A1c Provider: QUINN Ness Provider #: [id number] 02/03/2017 Cardiology staff addendum I have discussed, [...] ANEURYSM, S&I [facility] OR ??? PRO AAA REPAIR, 1ST VESSEL, EXTENSION PROSTH 04/12/2011 @EVG-PLACEMENT, CUFF OR EXT. AORTIC OR ILIAC ANEURYSM REPAIR, GORE performed by ACACIA BRYANT at [facility] OR ??? PRO AAA [...] patient Preferred Pharmacy: [facility]?? Other: [facility] mail order pharmacy Primary Care Provider: Arely Moise MD [phone] Patient/Caregiver Goals of Treatment: per medical team [...] of care planning. Shital Schmidt RN Pager: [phone] * Consult Note - Riya Kellogg RN [...] in the outpatient cardiac rehabilitation program at [facility] was discussed. Patient agrees to [...] 01/02/2024 1:30 PM EDT Laboratory Appointment Lab [address] [address] 01/02/2024 3:00 PM EDT Office Visit Neph[place] [address] Adam Costa MD [facility] [place] [address] Scheduled Referrals Name Type Priority Associated Diagnoses Orde r Schedule Referral to Cardiac Rehab Outpatient Referral Routine Non-ST elevation myocardial infarction (NSTEMI) Ordered: 02/05/2017 documented as of this encounter Procedures Procedure Name Priority Date/Time Associated Diagnosis Comments SALES PROGRAM COORDINATOR SCAN 02/06/2017 12:00 AM EDT POCT GLUCOSE [...] 02/05/20 17 3:33 AM EDT CARDIAC ENZYMES ([facility]) Routine 02/04/2017 3:33 AM EDT CBC (WITH [...] Non-ST elevation myocardial infarction (NSTEMI) CARDIAC ENZYMES ([facility]) STAT 02/03/2017 9:00 PM EDT POCT GLUCOSE Routine 02/03/2017 8:29 PM EDT POCT GLUCOSE Routine 02/03/2017 4:54 PM EDT EKG 12-LEAD Routine 02/03/2017 4:43 PM EDT Non-ST elevation myocardial infarction (NSTEMI) CARDIAC CATHETERIZATION Routine 02/04/20 17 4:26 PM EDT CARDIAC ENZYMES ([facility]) Routine 02/03/2017 3:00 PM EDT TSH Routine [...] 02/04/20 17 9:35 AM EDT CARDIAC ENZYMES ([facility]) STAT 02/03/2017 9:35 AM EDT APTT STAT 02/03/2017 9:35 AM EDT PROTHROMBIN TIME STAT 02/03/2017 9:35 AM EDT CBC (WITH DIFF) Routine 02/03/2017 9:35 AM EDT PRO-BRAIN NATRIURETIC PEPTIDE STAT 02/03/2017 9:35 AM EDT BASIC METABOLIC PANEL STAT 02/03/2017 9:35 AM EDT EKG 12-LEAD STAT 02/03/2017 9:23 AM EDT Non-ST elevation myocardial infarction (NSTEMI) documented in this encounter Results * SCAN DOC: SALES PROGRAM COORDINATOR (02/06/2017 12:00 AM EDT) Anatomical Region Laterality Modality Other Narrative 02/06/2017 12:00 AM EDT Ordered by an unspecified provider. Scanning Provider MEDIA MGR SCAN EXT O RDR/RSLT * POCT Glucose (02/05/2017 7:32 AM EDT) Glucose, POC 160 65 - 199 mg/dL [facility] Comment: Supplemental ranges: <140 mg/dL before meals <180 mg/dL all other times of the day Blood specimen (specimen) 02/05/2017 7:32 AM EDT 02/05/2017 7:32 AM EDT Bayron Oliva MD POINT OF CARE TEST O RDERABLES Performing Organization Address City/[facility]/ZIP Co de Phone Number [facility] [place] [address] * EKG 12 Lead (02/05/2017 7:26 AM EDT) Ventricular rate 54 BPM MUSE SYSTEM Atrial Rate 54 BPM MUSE SYSTEM P-R Interval 214 ms MUSE SYSTEM QRS Duration 96 ms MUSE SYSTEM Q-T Interval 486 ms MUSE SYSTEM QTC Calculated (Bezet) 460 ms MUSE SYSTEM Calculated P Durkee 14 degrees MUSE SYSTEM Calculated R Durkee 112 degrees MUSE SYSTEM Calculated T Durkee 143 degrees MUSE SYSTEM INTERPRETATION Sinus bradycardia [...] Moyer APRN ECG ORDERABLES Performing Organization Address City/[facility]/ZIP Co de Phone Number MUSE SYSTEM * (ABNORMAL) Differential, Automated (02/05/2017 3:43 AM EDT) Neutrophil % 63.2 % [facility] Neutrophil Absolute 7.21(H) 1.70 - 6.10 x10(3)/mc L [facility] Lymph % 20.7 % [facility] Lymphocytes Abs 2.4 0.9 - 3.2 x10(3)/ L [facility] Monocyte % 11.2 % [facility] Monocyte Abs 1.3(H) 0.3 - 0.9 x10(3)/ L [facility] Eos % 4.1 % [facility] Eosinophils Abs 0.5(H) 0.0 - 0.4 x10(3)/[facility] Basophil % 0.5 % [facility] Baso Absolute 0.1 0.0 - 0.1 x10(3)/[facility] Immature Gran % 0.30 % [facility] Comment: Immature granulocytes(IG's)percentage and absolute count will include metamyelocytes, myelocytes, and promyelocytes. Blood smears from CBCs yielding IG's will be scanned manually for concordance. If this scan disagrees with the automated IG or if promyelocytes are noted, a manual differential will be performed. Immature Gran Absolute 0.03 0.00 - 0.04 x10(3)/[facility] Blood specimen (specimen) 02/05/2017 3:43 AM EDT 02/05/2017 3:52 AM EDT Narrative Resulting Agency Comment Spec In Lab Shoshana Moyer APRN HEMATOLOGY ORDERABLE S [facility] [place] [address] * (ABNORMAL) Hemogram (02/05/2017 3:43 AM EDT) White Blood Cell 11.4(H) 4.0 - 9.5 x10(3)/[facility] Red Blood Cell 4.48(L) 4.58 - 5.54 x10(6)/[facility] Hemoglobin 14.0 13.7 - 16.5 gm/dL [facility] Hematocrit 41.1 40.5 - 48.5 % [facility] Mean Cell Volume 91.7 82.9 - 93.1 fL [facility] Mean Cell Hemoglobin 31.3 27.5 - 32.1 pg [facility] Mean Cell Hemoglobin Concentration 34.1 32.0 - 35.7 gm/dL [facility] Platelet 168 145 - 357 x10(3)/mc L [facility] RDW Standard Deviation 39.9 36.0 - 45.0 fL [facility] RDW coefficient of variation 11.8 11.4 - 13.8 % [facility] Mean Platelet Volume 10.2 7.6 - 12.9 fL [facility] NRBC% auto 0.0 % [facility] NRBC Absolute 0.000 0.000 - 0.000 x10(3)/mc L [facility] Blood specimen (specimen) 02/05/2017 3:43 AM EDT 02/05/2017 3:52 AM EDT Narrative Resulting Agency Comment Spec In Lab Shoshana Moyer APRN HEMATOLOGY ORDERABLE S Performing Organization Address City/State/[facility] Co de Phone Number [facility] [place] [address] * (ABNORMAL) BMP w/fasting Glucose (02/05/2017 3:43 AM EDT) Glucose Fasting 149(H) 65 - 99 mg/dL [facility] Comment: ?Fasting* Glucose [...] of Diabetes Mellitus, Position Statement from the [place] Diabetes Association. ??Diabetes Care, Volume 33, Supplement 1, May 2009 Blood Urea Nitrogen 19 10 - 20 mg/dL [facility] Creatinine 1.46 0.80 - 1.50 mg/dL [facility] Comment: Please note that the pediatric reference intervals supplied above were not validated at [facility]. Results from pediatric patients should be interpreted in conjunction to the patient's age, height and muscle mass. Sodium 140 135 - 145 mmol/L [facility] Potassium 4.3 3.5 - 5.0 mmol/L [facility] Comment: Please note: ??Patients with WBC >100,000 may have falsely elevated Potassium levels. ??For accurate Potassium quantification in these patients send serum separator tube (gold top) for subsequent determinations. ??Contact the Clinical Chemistry Laboratory if there are any questions. Chloride 104 98 - 107 mmol/L [facility] Carbon Dioxide 24 22 - 31 mmol/L [facility] Anion Gap 12 5 - 15 mmol/L [facility] Calcium 8.8 8.5 - 10.5 mg/dL [facility] Est Glomerular Filtration Rate 46(L) >=60 [facility] Comment: This estimated GFR (eGFR) [...] the following links into your internet browser. [email or web address] Blood specimen (specimen) 02/05/2017 3:43 AM EDT 02/05/2017 3:52 AM EDT Narrative Resulting Agency Comment Spec In Lab Shoshana Moyer APRN CHEMISTRY ORDERABLES [facility] [place] [address] * Magnesium (02/05/2017 3:43 AM EDT) Magnesium 0.77 0.69 - 1.07 mmol/L [facility] Blood specimen (specimen) 02/05/2017 3:43 AM EDT 02/05/2017 3:52 AM EDT Narrative Resulting Agency Comment Spec In Lab Shoshana Moyer APRN CHEMISTRY ORDERABLES [facility] [place] [address] * POCT Glucose (02/04/2017 8:10 PM EDT) Glucose, POC 189 65 - 199 mg/dL [facility] Comment: Supplemental ranges: <140 mg/dL before meals <180 mg/dL all other times of the day Blood specimen (specimen) 02/04/2017 8:10 PM EDT 02/04/2017 8:10 PM EDT Bayron Oliva MD POINT OF CARE TEST O BHASKAR Performing Organization Address [facility]/ZIP Co de Phone Number [facility] [place] [address] * POCT Glucose (02/04/2017 4:56 PM EDT) Glucose, POC 114 65 - 199 mg/dL [facility] Comment: Supplemental ranges: <140 mg/dL before meals <180 mg/dL all other times of the day Blood specimen (specimen) 02/04/2017 4:56 PM EDT 02/04/2017 4:56 PM EDT Bayron Oliva MD POINT OF CARE TEST O BHASKAR [facility] [place] [address] * POCT Glucose (02/04/2017 11:40 AM EDT) Glucose, POC 157 65 - 199 mg/dL [facility] Comment: Supplemental ranges: <140 mg/dL before meals <180 mg/dL all other times of the day Blood specimen (specimen) 02/04/2017 11:40 AM EDT 02/04/2017 11:40 AM EDT Bayron Oliva MD POINT OF CARE TEST Constance MURO Performing Organization Address [facility] Co de Phone Number [facility] [place] [address] * POCT Glucose (02/04/2017 7:53 AM EDT) Glucose, POC 178 65 - 199 mg/dL [facility] Comment: Supplemental ranges: <140 mg/dL before meals <180 mg/dL all other times of the day Blood specimen (specimen) 02/04/2017 7:53 AM EDT 02/04/2017 7:53 AM EDT Bayron Oliva MD POINT OF CARE TEST Constance MURO Performing Organization Address [facility] de Phone Number [facility] [place] [address] * EKG 12 Lead (02/04/2017 7:17 AM EDT) Ventricular rate 65 BPM MUSE SYSTEM Atrial Rate 65 BPM MUSE SYSTEM P-R Interval 248 ms MUSE SYSTEM QRS Duration 92 ms MUSE SYSTEM Q-T Interval 484 ms MUSE SYSTEM QTC Calculated (Bezet) 503 ms MUSE SYSTEM Calculated P Durkee 29 degrees MUSE SYSTEM Calculated R Durkee 99 degrees MUSE SYSTEM Calculated T Durkee 140 degrees MUSE SYSTEM INTERPRETATION Sinus rhythm [...] interpretation Confirmed by fellow MD Katherine, Truong ([id number]) on 02/04/2017 9:02:44 AM Confirmed by MD RAUL, JOAN ([id number]) on 02/04/2017 10:47:37 AM MUSE SYSTEM 02/04/2017 7:17 AM EDT 02/04/2017 10:47 AM EDT Shoshana Moyer APRN ECG ORDERABLES MUSE SYSTEM * (ABNORMAL) Cardiac Enzymes (02/04/2017 3:33 AM EDT) Troponin-T 0.95(H) 0.00 - 0.00 ng/mL [facility] Comment: The 99th percentile for Troponin T is less than 0.01 ng/mL, any detectable cTnT concentration using this assay should be considered elevated. According to the third universal definition of myocardial infarction the following criteria with a clinical presentation consistent with acute myocardial ischemia meets the diagnosis for a myocardial infarction (HI). Detection of a rise and/or fall of cTnT, with at least one value greater than the 99th percentile (> or = 0.01) and with at least one of the following ?? Symptoms of ischemia ?? New or presumed new significant NL-lesafub-N wave (ST-T) changes or new left bundle [...] additional sample may be indicated. Reference: Third [place] Definition of Myocardial Infarction. Journal of the [place] College of Cardiology 2012;60:1581-98 Creatine Kinase 421(H) 0 - 200 unit/L [facility] Blood specimen (specimen) Venous Draw / Unknown 02/04/2017 3:33 AM EDT 02/04/2017 3:50 AM EDT Narrative Resulting Agency Comment Spec In Lab Shoshana Moyer APRN CHEMISTRY ORDERABLES Performing Organization Address City/[facility]/ZIP Co de Phone Number [facility] [place] [address] * (ABNORMAL) Differential, Automated (02/04/2017 3:33 AM EDT) Neutrophil % 70.9 % [facility] Neutrophil Absolute 10.32(H) 1.70 - 6.10 x10(3)/mc L [facility] Lymph % 17.5 % [facility] Lymphocytes Abs 2.6 0.9 - 3.2 x10(3)/ L [facility] Monocyte % 8.8 % [facility] Monocyte Abs 1.3(H) 0.3 - 0.9 x10(3)/ L [facility] Eos % 2.0 % [facility] Eosinophils Abs 0.3 0.0 - 0.4 x10(3)/[facility] Basophil % 0.4 % [facility] Baso Absolute 0.1 0.0 - 0.1 x10(3)/ L [facility] Immature Gran % 0.40 % [facility] Comment: Immature granulocytes(IG's)percentage and absolute count will include metamyelocytes, myelocytes, and promyelocytes. Blood smears from CBCs yielding IG's will be scanned manually for concordance. If this scan disagrees with the automated IG or if promyelocytes are noted, a manual differential will be performed. Immature Gran Absolute 0.06(H) 0.00 - 0.04 x10(3)/mc L [facility] Blood specimen (specimen) 02/04/2017 3:33 AM EDT 02/04/2017 3:50 AM EDT Narrative Resulting Agency Comment Spec In Lab Shoshana Moyer APRN HEMATOLOGY ORDERABLE S Performing Organization Address City/[facility]/ZIP Co de Phone Number [facility] [place] [address] * (ABNORMAL) Hemogram (02/04/2017 3:33 AM EDT) White Blood Cell 14.6(H) 4.0 - 9.5 x10(3)/[facility] Red Blood Cell 4.65 4.58 - 5.54 x10(6)/[facility] Hemoglobin 14.6 13.7 - 16.5 gm/dL [facility] Hematocrit 41.8 40.5 - 48.5 % [facility] Mean Cell Volume 89.9 82.9 - 93.1 fL [facility] Mean Cell Hemoglobin 31.4 27.5 - 32.1 pg [facility] Mean Cell Hemoglobin Concentration 34.9 32.0 - 35.7 gm/dL [facility] Platelet 192 145 - 357 x10(3)/[facility] RDW Standard Deviation 38.6 36.0 - 45.0 [facility] RDW coefficient of variation 11.8 11.4 - 13.8 % [facility] Mean Platelet Volume 10.1 7.6 - 12.9 fL [facility] NRBC% auto 0.0 % [facility] NRBC Absolute 0.000 0.000 - 0.000 x10(3)/[facility] Blood specimen (specimen) 02/04/2017 3:33 AM EDT 02/04/2017 3:50 AM EDT Narrative Resulting Agency Comment Spec In Lab Shoshana Moyer APRN HEMATOLOGY ORDERABLE S [facility] [place] [address] * (ABNORMAL) BMP w/fasting Glucose (02/04/2017 3:33 AM EDT) Glucose Fasting 138(H) 65 - 99 mg/dL [facility] Comment: ?Fasting* Glucose [...] of Diabetes Mellitus, Position Statement from the [place] Diabetes Association. ??Diabetes Care, Volume 33, Supplement 1, May 2009 Blood Urea Nitrogen 15 10 - 20 mg/dL [facility] Creatinine 1.34 0.80 - 1.50 mg/dL [facility] Comment: Please note that the pediatric reference intervals supplied above were not validated at [facility]. Results from pediatric patients should be interpreted in conjunction to the patient's age, height and muscle mass. Sodium 139 135 - 145 mmol/L [facility] Potassium 4.2 3.5 - 5.0 mmol/L [facility] Comment: Please note: ??Patients with WBC >100,000 may have falsely elevated Potassium levels. ??For accurate Potassium quantification in these patients send serum separator tube (gold top) for subsequent determinations. ??Contact the Clinical Chemistry Laboratory if there are any questions. Chloride 102 98 - 107 mmol/L [facility] Carbon Dioxide 23 22 - 31 mmol/L [facility] Anion Gap 14 5 - 15 mmol/L [facility] Calcium 8.7 8.5 - 10.5 mg/dL [facility] Est Glomerular Filtration Rate 51(L) >=60 [facility] Comment: This estimated GFR (eGFR) [...] the following links into your internet browser. [email or web address] Blood specimen (specimen) 02/04/2017 3:33 AM EDT 02/04/2017 3:50 AM EDT Narrative Resulting Agency Comment Spec In Lab Shoshana Moyer KITCHEN AIDE CHEMISTRY ORDERABLES Performing Organization Address [facility] de Phone Number [facility] [place] [address] * Magnesium (02/04/2017 3:33 AM EDT) Pathologist [facility] Magnesium 0.77 0.69 - 1.07 mmol/L [facility] [facility] Blood specimen (specimen) 02/04/2017 3:33 AM EDT 02/04/2017 3:50 AM EDT Narrative Resulting Agency Comment Spec In Lab Shoshana Moyer KITCHEN AIDE CHEMISTRY ORDERABLES Performing Organization Address [facility] de Phone Number [facility] [place] [address] * (ABNORMAL) Hepatic Function Panel (02/04/2017 3:33 AM EDT) Protein, Total 6.1 6.1 - 8.0 gm/dL [facility] Albumin 3.7 3.2 - 5.2 gm/dL [facility] Aspartate Aminotransferase 57(H) 0 - 39 unit/L [facility] Alanine Aminotransferase 34 0 - 55 unit/L [facility] Alkaline Phosphatase 71 40 - 120 unit/L [facility] Bilirubin, Total 0.7 0.2 - 1.3 mg/dL [facility] Bilirubin, Direct 0.1 0.0 - 0.3 mg/dL [facility] Blood specimen (specimen) 02/04/2017 3:33 AM EDT 02/04/2017 3:50 AM EDT Narrative Resulting Agency Comment Spec In Lab Shoshana Moyer KITCHEN AIDE CHEMISTRY ORDERABLES Performing Organization Address City/[facility]/ZIP Co de Phone Number [facility] [place] [address] * Triglyceride (02/04/2017 3:33 AM EDT) Triglyceride 171 <=199 mg/dL [facility] Blood specimen (specimen) 02/04/2017 3:33 AM EDT 02/04/2017 3:50 AM EDT Narrative Resulting Agency Comment Spec In Lab Shoshana Moyer KITCHEN AIDE CHEMISTRY ORDERABLES Performing Organization Address [facility] Co de Phone Number [facility] [place] [address] * (ABNORMAL) HDL/Cholesterol Profile (02/04/2017 3:33 AM EDT) Cholesterol, Total 106 <=239 mg/dL [facility] HDL Cholesterol 37(L) >=40 mg/dL [facility] Cholesterol/HDL Ratio 2.9 ratio [facility] Chol/HDL Interpretation See Note [facility] Comment: Lipid management should be guided by a patient? s ASCVD risk, goals and preferences. ACC/AHA Guidelines recommend high intensity statin if clinical ASCVD or LDL greater than or equal to 190 mg/dL. http://Auspherix.com/AWN-NBI-Lgejlysjo Measure LDL if Total Cholesterol minus HDL Cholesterol is greater than 220 mg/dL. Adults aged 40-75 with LDL 70-189 mg/dL should have their 10 year ASCVD risk estimated with the ACC/AHA ASCVD risk data management specialist http://tools.acc.org/TZEJH-Tkdo-Eiqvuhsrr/ Statin should be discussed if risk greater [...] Agency Comment Spec In Lab Shoshana Moyer SkyKick CHEMISTRY ORDERABLES Performing Organization Address City/[facility]/ZIP Co de Phone Number [facility] [place] [address] * LDL Cholesterol, Direct (02/04/2017 3:33 AM EDT) LDL Cholesterol, Direct 47 <=190 mg/dL [facility] Blood specimen (specimen) 02/04/2017 3:33 AM EDT 02/04/2017 3:50 AM EDT Narrative Resulting Agency Comment Spec In Lab Shoshana Moyer SkyKick CHEMISTRY ORDERABLES Performing Organization Address [facility] Co de Phone Number [facility] [place] [address] * (ABNORMAL) Hemoglobin A1c (02/04/2017 3:33 AM EDT) Hemoglobin A1c 6.2(H) 4.3 - 5.6 % [facility] Comment: Reference Range: [...] Mellitus, Diabetes Care 2013; 36: Suppl. 1, Z17-58 Estimated Average Glucose See note mg/dL [facility] Comment: Estimated Average [...] into estimated average glucose values. ??Diabetes Care 2008:31(8):3800-5474. Blood specimen (specimen) 02/04/2017 3:33 AM EDT 02/04/2017 3:50 AM EDT Narrative Resulting Agency Comment Spec In Lab Shoshana Moyer APRN CHEMISTRY ORDERABLES [facility] [place] [address] * EKG 12 Lead (02/03/2017 9:16 PM EDT) Ventricular rate 77 BPM MUSE SYSTEM Atrial Rate 77 BPM MUSE SYSTEM P-R Interval 222 ms MUSE SYSTEM QRS Duration 90 ms MUSE SYSTEM Q-T Interval 458 ms MUSE SYSTEM QTC Calculated (Bezet) 518 ms MUSE SYSTEM Calculated P Durkee 29 degrees MUSE SYSTEM Calculated R Durkee 98 degrees MUSE SYSTEM Calculated T Durkee 118 degrees MUSE SYSTEM INTERPRETATION Sinus rhythm [...] Oliva MD ECG ORDERABLES Performing Organization Address City/[facility]/ZIP Co de Phone Number MUSE SYSTEM * (ABNORMAL) Cardiac Enzymes (02/03/2017 9:00 PM EDT) Troponin-T 0.71(H) 0.00 - 0.00 ng/mL [facility] Comment: The 99th percentile for Troponin T is less than 0.01 ng/mL, any detectable cTnT concentration using this assay should be considered elevated. According to the third universal definition of myocardial infarction the following criteria with a clinical presentation consistent with acute myocardial ischemia meets the diagnosis for a myocardial infarction (HI). Detection of a rise and/or fall of cTnT, with at least one value greater than the 99th percentile (> or = 0.01) and with at least one of the following ?? Symptoms of ischemia ?? New or presumed new significant SL-tbwnyjv-Q wave (ST-T) changes or new left bundle [...] additional sample may be indicated. Reference: Third [place] Definition of Myocardial Infarction. Journal of the [place] College [employer] 2012;60:1581-98 Creatine Kinase 329(H) 0 - 200 unit/L [facility] Blood specimen (specimen) 02/03/2017 9:00 PM EDT 02/03/2017 9:05 PM EDT Narrative Resulting Agency Comment Spec In Lab Shoshana Moyer APRN CHEMISTRY ORDERABLES Performing Organization Address City/[facility]/ZIP Co de Phone Number [facility] [place] [address] * POCT Glucose (02/03/2017 8:29 PM EDT) Glucose, POC 197 65 - 199 mg/dL [facility] Comment: Supplemental ranges: <140 mg/dL before meals <180 mg/dL all other times of the day Blood specimen (specimen) 02/03/2017 8:29 PM EDT 02/03/2017 8:29 PM EDT Bayron Oliva MD POINT OF CARE TEST O BHASKAR Performing Organization Address [facility] Co de Phone Number [facility] [place] [address] * POCT Glucose (02/03/2017 4:54 PM EDT) Glucose, POC 144 65 - 199 mg/dL [facility] Comment: Supplemental ranges: <140 mg/dL before meals <180 mg/dL all other times of the day Blood specimen (specimen) 02/03/2017 4:54 PM EDT 02/03/2017 4:54 PM EDT Bayron Oliva MD POINT OF CARE TEST O BHASKAR Performing Organization Address [facility] Co de Phone Number [facility] [place] [address] * EKG 12 Lead (02/03/2017 4:43 PM EDT) Ventricular rate 81 BPM MUSE SYSTEM Atrial Rate 81 BPM MUSE SYSTEM P-R Interval 226 ms MUSE SYSTEM QRS Duration 96 ms MUSE SYSTEM Q-T Interval 420 ms MUSE SYSTEM QTC Calculated (Bezet) 487 ms MUSE SYSTEM Calculated P Durkee 30 degrees MUSE SYSTEM Calculated R Durkee -20 degrees MUSE SYSTEM Calculated T Durkee -19 degrees MUSE SYSTEM INTERPRETATION Sinus rhythm with 1st degree A-V block Low voltage QRS Inferior infarct (cited on or before 03-FEB-2017 ) ST and ??T wave abnormality , consider anterior ischemia Abnormal ECG When compared with ECG of 03-FEB-2017 09:23, ST now elevated V2-3 Confirmed by MD LELSY, ARELY ([id number]) on 02/04/2017 9:17:15 PM MUSE SYSTEM 02/03/2017 4:43 PM EDT 02/04/2017 9:17 PM EDT Bayron Oliva MD ECG ORDERABLES MUSE SYSTEM * CARDIAC CATHETERIZATION (02/03/2017 4:26 PM EDT) Anatomical Region Laterality Modality Other Narrative 02/03/2017 4:43 PM EDT ?[facility] ? Cardiac Catheterization/Intervention Report ? Patient Name: Cesar Thompson D. ? Procedure Date: 02/03/2017 ? A #: [id number] ? Primary Physician: Lydia Harden ? Case #: [id number] ? File Name: [id number] ? Catheterization Order Number: [id number] ? [facility] ? Final Report [place], [place] ? Patient Name: ? Cesar Thompson ?ID#: ?[id number] ? : ?1935 ? Procedure Date: ? February 03, 2017 ?Case #: ? [id number] ? Room: ? 6 ? Case Physician: [...] patient presented with: non-STEMI (w/i 7 days). Haitian ?Cardiovascular Society angina class was IV. This [...] dose administered prior to arrival in the laboratory engineer. ?Recommend continuing clopidogrel 75 mg PO daily [...] Procedure Note Lydia Harden MD - 08/08/2017 [facility] Cardiac Catheterization/Intervention Report Patient Name: Cesar Thompson Procedure Date: 02/03/2017 A #: [id number] Primary Physician: Lydia Harden Case #: [id number] File Name: [id number] Catheterization Order Number: [id number] [facility] FinalReport [place], [place] Patient Name: Cesar Thompson ID#:[id number] :1935 Procedure Date: February 03, 2017 Case [...] patient presented with: non-STEMI (w/i 7 days). [place] Cardiovascular Society angina class was IV. This [...] The lesion was predilated with a 2.50mm [id number] MM balloon with a maximum inflation pressure [...] dose administered prior to arrival in the laboratory engineer. Recommend continuing clopidogrel 75 mg PO daily [...] EDT) Troponin-T 0.48(H) 0.00 - 0.00 ng/mL [facility] Comment: The 99th percentile for Troponin T is less than 0.01 ng/mL, any detectable cTnT concentration using this assay should be considered elevated. According to the third universal definition of myocardial infarction the following criteria with a clinical presentation consistent with acute myocardial ischemia meets the diagnosis for a myocardial infarction (HI). Detection of a rise and/or fall of cTnT, with at least one value greater than the 99th percentile (> or = 0.01) and with at least one of the following ?? Symptoms of ischemia ?? New or presumed new significant AU-szzsepr-G wave (ST-T) changes or new left bundle [...] additional sample may be indicated. Reference: Third [place] Definition of Myocardial Infarction. Journal of the [place] College of Cardiology 2012;60:1581-98 Creatine Kinase 305(H) 0 - 200 unit/L [facility] Blood specimen (specimen) 02/03/2017 3:00 PM EDT 02/03/2017 3:22 PM EDT Narrative Resulting Agency Comment Spec In Lab Shoshana Moyer APRN CHEMISTRY ORDERABLES [facility] [place] [address] * TSH (02/03/2017 3:00 PM EDT) Thyroid Stimulating Hormone 1.18 0.27 - 4.20 mlU/ML [facility] Blood specimen (specimen) 02/03/2017 3:00 PM EDT 02/03/2017 3:22 PM EDT Narrative Resulting Agency Comment Spec In Lab Inder Medley MD CHEMISTRY ORDERABLES [facility] [place] [address] * XR Chest PA & Lateral (Generic) [...] ?EDD Hatch ?(Age): 1935(81y) Med Rec#: ? [id number] ?Sex: ?M ? Site Loc: ? [facility] ?Ht / Wt: ??175(cm)/85(kg) Pt. Loc: ?Adult Floor ? BSA: ?2.01 Study Date: ?? 02/03/2017 ?Pt. Type: Inpatient Tape: ? Referring: GRANTROBERTJ Referring: Inder Medley Reading: Mason Beth ([id number]) Qa Architect: Sonia Marcial Diagnosis: *ICD-10-PCS Non-ST elevation (NSTEMI) [...] ? Mid-Inferior ?Hypokinetic ? Mid-Inferoseptal ?Akinetic ? [place]-Septal ? Akinetic ? [place]-Anterior ? Akinetic ? [place]-Lateral ?Akinetic ? [place]-Inferior ? Akinetic ? [place]-Tip ?Akinetic ? This report has been electronically signed by: Mason Beth MD ? 02/03/2017 13:42:39 Images reviewed and interpretation verified [facility] Procedure Note Mason Beth MD - 02/03/2017 Procedure: Transthoracic Echocardiogram Patient: EDD Hatch (Age): 1935(81y) Med Rec#: [id number] Sex: M Site Loc: [facility] Ht / Wt: 175(cm)/85(kg) Pt. Loc: Adult Floor BSA: 2.01 Study Date: 02/03/2017 Pt. Type: Inpatient Tape: Referring: CRISTAL Referring: Inder Medley Reading: Mason Beth ([id number]) Qa Architect: Sonia Marcial Diagnosis: *ICD-10-PCS Non-ST elevation (NSTEMI) [...] Hypokinetic Mid-Posterolateral Hypokinetic Mid-Inferior Hypokinetic Mid-Inferoseptal Akinetic [place]-Septal Akinetic [place]-Anterior Akinetic [place]-Lateral Akinetic [place]-Inferior Akinetic [place]-Tip Akinetic This report has been electronically signed by: Mason Beth MD 02/03/2017 13:42:39 Images reviewed and interpretation verified [facility] Inder Medley MD ECHO ORDERABLES * POCT Glucose (02/03/2017 11:50 AM EDT) Glucose, POC 138 65 - 199 mg/dL [facility] Comment: Supplemental ranges: <140 mg/dL before meals <180 mg/dL all other times of the day Blood specimen (specimen) 02/03/2017 11:50 AM EDT 02/03/2017 11:50 AM EDT Bayron Oliva MD POINT OF CARE TEST O BHASKAR Performing Organization Address [facility] Co de Phone Number [facility] [place] [address] * (ABNORMAL) APTT (02/03/2017 11:50 AM EDT) [facility] Partial Thromboplastin Time 54(H) 25 - 35 sec [facility] Comment: The recommended therapeutic range for full dose, unfractionated heparin at [facility] is 80 ? 114 seconds. The use of the anti-Xa (heparin) level rather than the PTT is recommended for monitoring anticoagulation intensity in critically ill patients receiving unfractionated heparin by continuous IV infusion. Blood specimen (specimen) 02/03/2017 11:50 AM EDT 02/03/2017 12:05 PM EDT Narrative Resulting Agency Comment Spec In Lab Shoshana Moyer APRN HEMATOLOGY ORDERABLE S Performing Organization Address [facility] Phone Number [facility] [place] [address] * POCT Glucose (02/03/2017 10:13 AM EDT) [facility] Glucose, POC 148 65 - 199 mg/dL [facility] Comment: Supplemental ranges: <140 mg/dL before meals <180 mg/dL all other times of the day Blood specimen (specimen) 02/03/2017 10:13 AM EDT 02/03/2017 10:13 AM EDT Inder Medley MD POINT OF CARE TEST O BHASKAR Performing Organization Address [facility] Co de Phone Number [facility] [place] [address] * (ABNORMAL) Differential, Automated (02/03/2017 9:35 AM EDT) [facility] Neutrophil % 68.5 % [facility] Neutrophil Absolute 6.52(H) 1.70 - 6.10 x10(3)/[facility] LAB[facility]AT[facility] Lymph % 20.1 % [facility] Lymphocytes Abs 1.9 0.9 - 3.2 x10(3)/[facility] Monocyte % 7.5 % [facility] Monocyte Abs 0.7 0.3 - 0.9 x10(3)/[facility] Eos % 2.9 % [facility] Eosinophils Abs 0.3 0.0 - 0.4 x10(3)/[facility] Basophil % 0.7 % [facility] Baso Absolute 0.1 0.0 - 0.1 x10(3)/[facility] Immature Gran % 0.30 % [facility] Comment: Immature granulocytes(IG's)percentage and absolute count will include metamyelocytes, myelocytes, and promyelocytes. Blood smears from CBCs yielding IG's will be scanned manually for concordance. If this scan disagrees with the automated IG or if promyelocytes are noted, a manual differential will be performed. Immature Gran Absolute 0.03 0.00 - 0.04 x10(3)/[facility] Blood specimen (specimen) 02/03/2017 9:35 AM EDT 02/03/2017 9:40 AM EDT Narrative Resulting Agency Comment Spec In Lab Shoshana Moyer APRN HEMATOLOGY ORDERABLE S [facility] [place] [address] * Hemogram (02/03/2017 9:35 AM EDT) White Blood Cell 9.5 4.0 - 9.5 x10(3)/[facility] LABORATORY Red Blood Cell 4.99 4.58 - 5.54 x10(6)/[facility] Hemoglobin 15.3 13.7 - 16.5 gm/dL [facility] Hematocrit 44.5 40.5 - 48.5 % [facility] Mean Cell Volume 89.2 82.9 - 93.1 fL [facility] Mean Cell Hemoglobin 30.7 27.5 - 32.1 pg [facility] Mean Cell Hemoglobin Concentration 34.4 32.0 - 35.7 gm/dL [facility] Platelet 204 145 - 357 x10(3)/[facility] LAB[facility]AT[facility] RDW Standard Deviation 37.7 36.0 - 45.0 fL [facility] RDW coefficient of variation 11.8 11.4 - 13.8 % [facility] Mean Platelet Volume 10.3 7.6 - 12.9 fL [facility] NRBC% auto 0.0 % [facility] NRBC Absolute 0.000 0.000 - 0.000 x10(3)/[facility] Blood specimen (specimen) 02/03/2017 9:35 AM EDT 02/03/2017 9:40 AM EDT Narrative Resulting Agency Comment Spec In Lab Shoshana Moyer APRN HEMATOLOGY ORDERABLE S [facility] [place] [address] * (ABNORMAL) Cardiac Enzymes (02/03/2017 9:35 AM EDT) Troponin-T 0.31(H) 0.00 - 0.00 ng/mL [facility] Comment: The 99th percentile for Troponin T is less than 0.01 ng/mL, any detectable cTnT concentration using this assay should be considered elevated. According to the third universal definition of myocardial infarction the following criteria with a clinical presentation consistent with acute myocardial ischemia meets the diagnosis for a myocardial infarction (HI). Detection of a rise and/or fall of cTnT, with at least one value greater than the 99th percentile (> or = 0.01) and with at least one of the following ?? Symptoms of ischemia ?? New or presumed new significant EI-jlluxvn-Y wave (ST-T) changes or new left bundle [...] additional sample may be indicated. Reference: Third [place] Definition of Myocardial Infarction. Journal of the [place] College [employer]iology 2012;60:1581-98 Creatine Kinase 264(H) 0 - 200 unit/L [facility] Blood specimen (specimen) 02/03/2017 9:35 AM EDT 02/03/2017 9:40 AM EDT Narrative Resulting Agency Comment Spec In Lab Shoshana Moyer APRN CHEMISTRY ORDERABLES Performing Organization Address [facility]/ZIP Co de Phone Number [facility] [place] [address] * (ABNORMAL) pro-Brain Natriuretic Peptide (02/03/2017 9:35 AM EDT) NT-proBNP 1,411(H) <=450 pg/mL [facility] Blood specimen (specimen) 02/03/2017 9:35 AM EDT 02/03/2017 9:40 AM EDT Narrative Resulting Agency Comment Spec In Lab Shoshana Moyer APRN CHEMISTRY ORDERABLES Performing Organization Address City/[facility]/ZIP Co de Phone Number [facility] [place] [address] * (ABNORMAL) APTT (02/03/2017 9:35 AM EDT) Partial Thromboplastin Time 64(H) 25 - 35 sec [facility] Comment: The recommended therapeutic range for full dose, unfractionated heparin at [facility] is 80 ? 114 seconds. The use of the anti-Xa (heparin) level rather than the PTT is recommended for monitoring anticoagulation intensity in critically ill patients receiving unfractionated heparin by continuous IV infusion. Blood specimen (specimen) 02/03/2017 9:35 AM EDT 02/03/2017 9:40 AM EDT Narrative Resulting Agency Comment Spec In Lab Shsohana Moyer APRN HEMATOLOGY ORDERABLE S Performing Organization Address [facility]/ZIP Co de Phone Number [facility] [place] [address] * Prothrombin Time (02/03/2017 9:35 AM EDT) Prothrombin Time 14.1 12.0 - 15.0 sec [facility] Comment: An INR [...] International Normalization Ratio 1.0 0.9 - 1.1 [facility] Blood specimen (specimen) 02/03/2017 9:35 AM EDT 02/03/2017 9:40 AM EDT Narrative Resulting Agency Comment Spec In Lab Shoshana Moyer APRN HEMATOLOGY ORDERABLE S Performing Organization Address [facility] Co de Phone Number [facility] [place] [address] * (ABNORMAL) Basic Metabolic Panel (non-fasting) (02/03/2017 9:35 AM EDT) Glucose 159 65 - 199 mg/dL [facility] Comment:Diabetes: >=200 mg/d L plus symptoms Blood Urea Nitrogen 15 10 - 20 mg/dL [facility] Creatinine 1.19 0.80 - 1.50 mg/dL [facility] Comment: Please note that the pediatric reference intervals supplied above were not validated at [facility]. Results from pediatric patients should be interpreted in conjunction to the patient's age, height and muscle mass. Sodium 140 135 - 145 mmol/L [facility] Potassium 4.0 3.5 - 5.0 mmol/L [facility] Comment: Please note: ??Patients with WBC >100,000 may have falsely elevated Potassium levels. ??For accurate Potassium quantification in these patients send serum separator tube (gold top) for subsequent determinations. ??Contact the Clinical Chemistry Laboratory if there are any questions. Chloride 103 98 - 107 mmol/L [facility] Carbon Dioxide 22 22 - 31 mmol/L [facility] Anion Gap 15 5 - 15 mmol/L [facility] Calcium 9.3 8.5 - 10.5 mg/dL [facility] Est Glomerular Filtration Rate 59(L) >=60 [facility] Comment: This estimated GFR (eGFR) [...] the following links into your internet browser. [email or web address] Blood specimen (specimen) 02/03/2017 9:35 AM EDT 02/03/2017 9:40 AM EDT Narrative Resulting Agency Comment Spec In Lab Shoshana Moyer APRN CHEMISTRY ORDERABLES [facility] [place] [address] * EKG 12 Lead (02/03/2017 9:23 AM EDT) Ventricular rate 71 BPM MUSE SYSTEM Atrial Rate 71 BPM MUSE SYSTEM P-R Interval 236 ms MUSE SYSTEM QRS Duration 96 ms MUSE SYSTEM Q-T Interval 448 ms MUSE SYSTEM QTC Calculated (Bezet) 486 ms MUSE SYSTEM Calculated P Durkee -5 degrees MUSE SYSTEM Calculated R Durkee -17 degrees MUSE SYSTEM Calculated T Durkee 79 degrees MUSE SYSTEM INTERPRETATION Sinus rhythm with 1st degree A-V block Inferior infarct , age undetermined T wave abnormality, consider anterolateral ischemia Abnormal ECG When compared with ECG of 12-APR-2011 07:31, T wave inversion now evident in Anterolateral leads Confirmed by MD Elsie, Rosendo Walker ([id number]) on 02/04/2017 9:15:41 AM MUSE SYSTEM 02/03/2017 [...] Routine documented in this encounter Care Teams Airline Reservation Agent Relationship Specialty Start Date End Date Arely Moise MD [address] [place] [address] PCP - General Family Medicine 09/16/16 documented as of this encounter
--- OUTSIDE RECORDS SUMMARY | 2023-12-28 06:42 | XMS_ITS | Encounter Summary ---
Author Organization [facility] [place] [address] Care Team Providers Care Aerodynamics Teacher Name Role Phone Rolando Zacarias MD Primary Care Provider [phone] Encounter Details Date Type Department Care Team (Late st Contact Info) Description 04/15/2014 Orders Only [place] [address] Sydnie Adam RN AAA (abdominal [...] 1:30 PM EDT Laboratory Appointment Lab [address] [place] [phone] 01/02/2024 3:00 PM EDT Office Visit Nephrology [place] [address] Adam Costa MD [facility] [place] [address] documented as of this encounter Results * (ABNORMAL) Creatinine (08/11/2014 8:52 AM EDT) Creatinine 1.38 0.80 - 1.50 mg/dL [facility] Comment: Please note that the pediatric reference intervals supplied above were not validated at [facility]. Results from pediatric patients should be interpreted in conjunction to the patient's age, height and muscle mass. Est Glomerular Filtration Rate 50(L) >=60 [facility] Comment: This estimated GFR (eGFR) [...] the following links into your internet browser. [email or web address] Blood specimen (specimen) 08/11/2014 8:52 AM EDT 08/11/2014 9:00 AM EDT Narrative Resulting Agency Comment Spec In Lab Steven Borges MD CHEMISTRY ORDERABLES [facility] documented in this encounter Visit Diagnoses Diagnosis AAA (abdominal aortic aneurysm) Abdominal aneurysm without mention of rupture documented in this encounter Care Teams Aerodynamics Teacher Relationship Specialty Start Date End Date Rolando Zacarias MD PCP - General 04/12/11 09/15/16 documented as of this encounter
--- OUTSIDE RECORDS SUMMARY | 2023-12-28 06:43 | XMS_ITS | Encounter Summary ---
Author Organization [facility] Address [facility] [place] [address] Care Team Providers Care Clinical Services Director Name Role Phone Rolando Zacarias MD Primary Care Provider [phone] Encounter Details Date Type Department Care Team (Late st Contact Info) Description 04/12/2011 11:00 AM EST Anesthesia Event [place] [address] Placido Doe MD [facility] [place] [address] Anesthesia Record Procedure Summary Procedure Name Responsible [...] 04/13/11; 0800 04/12/11 0726 by Cristian Byers, INDUSTRIAL INSULATOR 04/13/11 0800 by Vishnu Mckoy RN (RETIRED) Peripheral IV Line - Single Lumen 04/12/11; 0726; 04/16/11; 0142 04/12/11 0726 by Cristian Byers, INDUSTRIAL INSULATOR 04/16/11 0142 by Tawana Valenzuela RN Urethral Catheter 04/12/11; 0727; indwelling double lumen catheter; 16; in place (inserted SPUDDER); 04/15/11; 0643 04/12/11 0727 by Cristian Byers, [...] Time: 1435 04/12/11 1452 by Bello Guerrero HAND ALTERATIONS SEAMSTRESS 04/13/11 1435 by Esme Cole RRT documented [...] recent URI Cardiovascular (+) hypertension, (-) past [place], CAD and CABG/stent ROS comment: Symptomatic 5cm [...] 1:30 PM EDT Laboratory Appointment Lab [address] [place] [address] 01/02/2024 3:00 PM EDT Office Visit [place] [address] Adam Costa MD [facility] [place] [address] documented as of this encounter Visit Diagnoses Not on filedocumented in this encounter Care Teams Clinical Services Director Relationship Specialty Start Date End Date Rolando Zacarias MD PCP - General 04/12/11 09/15/16 documented as of this encounter
--- OUTSIDE RECORDS SUMMARY | 2023-12-28 06:43 | XMS_ITS | Encounter Summary ---
Author Organization [facility] Address [facility] [place] [address] Care Team Providers Care Mapping Specialist Name Role Phone Arely Vickers MD Primary Care Provider [phone] Reason for Visit * Reason Comments Abdominal Pain Encounter Details Date Type Department Care Team (Late st Contact Info) Description 04/12/2011 10:58 AM EST - 04/12/2011 12:26 PM EST Surgery [place] [address] Steven Borges MD [facility] [place] [address] @EVG-PLACEMENT, CUFF OR EXT. AORTIC OR ILIAC [...] For any problems or questions please call [phone] Angela Mujica RN Vascular Nurse Clinician Loretta [...] yesterday. Will replete K again today. ID: [facility] trending down - patient on Vanc/zosyn for superimposed diverticulitis. Will start PO cipro/flagyl and have him continue for 7 more days. Dispo: Home today. 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 PRIMARY CARE PHYSICIAN: ARELY VICKERS MD [place] [phone] / [place] [phone] POTENTIAL DISCHARGE NEEDS: None anticipated; states can monitor his BP at home PATIENT/FAMILY EDUCATION NEEDS:per discharge summary ANTICIPATED BARRIERS TO DISCHARGE:none TRANSPORTATION @ D/C:friend Montse PLAN: Vascular CRC will continue to monitor progress, follow for continuity of care and assist withdischarge planning while hospitalized * Abhi Dukes, PharmD - 04/14/2011 2:08 PM EST Clinical Pharmacist Note-Vanc Cali Thompson [id number] 1935 Cali Thompson is a 75 y.o. [...] have. Alternately, during off-hours you may call [phone] to contact a pharmacist. ABHI DUKES PHARMD [...] - 04/13/2011 3:01 PM EST Cali Thompson [id number] 04/13/2011 04/12/2011 7:04 AM Critical Care Medicine [...] Q12H ??? DISCONTD: ceFAZolin 2 g Intravenous Ict Development Manager to OR ??? DISCONTD: vancomycin 1 g Intravenous Q12H No Known Allergies EXAM: Temp: [35.7 ??C (96.3 ??F)-37.2 ??C (99 ??F)] Heart Rate: [47-80] Resp: [10-19] BP: (104)/(61) SpO2: [91 %-98 %] I/O last 3 completed shifts: In: 88063 [I.V.:92240] Out: 2300 [Urine:1700; Blood:600] I/O this shift: [...] 97 % SpO2: [91 %-98 %] SIMV/PS [id number] PEEP 5 FiO2 40% Last ABG 7.36/35/70/19 Intake/Output Summary (Last 24 hours) at 04/13/11 1155 Last data filed at 04/13/11 1000 Gross per 24 hour Intake 33497 ml Output 2775 ml Net 9784 ml [...] PM EST Clinical Pharmacist Note-Vanc Cali Thompson [id number] 1935 Cali Thompson is a 75 y.o. [...] have. Alternately, during off-hours you may call [phone] to contact a pharmacist. JIA VICTORIA PHARMD Pager [phone] * Chris Johnson - 04/12/2011 8:28 PM [...] 04/12/11 194 Gross per 24 hour Intake 81445 ml Output 1755 ml Net 8949 ml [...] Gill MD - 04/12/2011 8:08 AM EST [facility] staff procedure note: Under sterile cond RIGHT radial a-line placed for hemodynamic monitoring. Hand intact, excellent waveform. documented in this encounter H&P Notes * Poli Chowdhury MD - 04/12/2011 8:22 AM EST Cali Thompson [id number] 04/12/2011 04/12/2011 7:04 AM Critical Care Medicine [...] Once ??? DISCONTD: ceFAZolin 2 g Intravenous Ict Development Manager to OR No Known Allergies EXAM: Temp: [...] prior known history of AAA, presents to [facility] with c/o abdominal pain for [...] urgently once medically optimized, endovascular graft candidate [facility] Staff: I saw and evaluated [...] 04/17/2011 11:15 AM ESTAssociated Order(s): SCAN DOC: OBJECT ORIENTED PROGRAMMER documented in this encounter ED Notes * [...] with current pain regimen. Encouraged to notify industrial staff nurse when inneed of pain medication. 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 On the right [...] removed the delivery system and advanced a 20-Thai [place] dry seal up the right side. We [...] Operative Note Patient Name: Cali Thompson : [id number] MR#: [id number] Case Date: 04/12/2011 Surgeon: Surgeon(s) and Role: * STEVEN BORGES MD - Primary * JOAN VAIL MD - Fellow Preoperative diagnosis: symptomatic infrarenal aortic aneurysm Postoperative diagnosis: same Procedure(s): Bilateral femoral arterial exposures Endovascular repair of aortic aneurysm, using Sape Flex [id number] via right; ipsilateralextension with TFLE 16-56; contralateral [...] exposures Endovascular repair of aortic aneurysm, using Sape Flex [id number] via right; ipsilateralextension with TFLE 16-56; contralateral extension with TFLE 16-73 History of Presentation: 75 year old male without prior known history of AAA, presented to [facility] with complaints of abdominal pain [...] For any problems or questions please call [phone] Angela Mujica RN Vascular Nurse Clinician Loretta Matthews RN Vascular Nurse Clinician Future Appointments and Orders Future Orders Please Complete By Expires CT abdomen & pelvis with contrast [[id number] Custom] 05/13/11 04/12/12 Process Instructions: Scheduling Instructions: [...] to the ED as a transfer from [facility] for vascular with a dx of [...] bedside upon pt arrival. Pt placed on auto garage mechanic, labs obtained and sent. Pt c/o having [...] 01/02/2024 1:30 PM EDT Laboratory Appointment Lab [address] [address] 01/02/2024 3:00 PM EDT Office Visit Neph[place] [address] Adam Costa MD [facility] [place] [address] documented as of this encounter Procedures Procedure [...] IMPLANTABLE DEVICES SCAN 04/17/2011 11:15 AM EST OBJECT ORIENTED PROGRAMMER SCAN 04/17/2011 11:15 AM EST POCT GLUCOSE [...] SCAN EXT O RDR/RSLT * SCAN DOC: OBJECT ORIENTED PROGRAMMER (04/17/2011 11:15 AM EST) Anatomical Region Laterality Modality Other Narrative 04/17/2011 3:20 PM EST Procedure Note Provider, Scanning - 04/17/2011 11:15 AM EST Scanning Provider MEDIA MGR SCAN EXT O RDR/RSLT * (ABNORMAL) POCT GLUCOSE LAB USE ONLY (04/16/2011 10:58 AM EST) Glucose, POC 257(H) 60 - 199 mg/dL [facility] Comment: Supplemental ranges: <110 mg/dL before meals <200 mg/dL all other times of the day Blood specimen (specimen) 04/16/2011 10:58 AM EST 04/16/2011 10:58 AM EST Randy Padilla MD POINT OF CARE TEST O BHASKAR Performing Organization Address [facility] de Phone Number [facility] * POCT GLUCOSE LAB USE ONLY (04/16/2011 7:21 AM EST) Glucose, POC 181 60 - 199 mg/dL [facility] Comment: Supplemental ranges: <110 mg/dL before meals <200 mg/dL all other times of the day Blood specimen (specimen) 04/16/2011 7:21 AM EST 04/16/2011 7:21 AM EST Randy Padilla MD POINT OF CARE TEST O BHASKAR Performing Organization Address [facility] Co de Phone Number [facility] * (ABNORMAL) DIFFERENTIAL, AUTOMATED (04/16/2011 6:08 AM [...] MD HEMATOLOGY ORDERABLE S Performing Organization Address [facility] Phone Number DONNIE DIETZ * (ABNORMAL) POCT GLUCOSE LAB USE ONLY (04/15/2011 8:59 PM EST) Glucose, POC 217(H) 60 - 199 mg/dL [facility] Comment: Supplemental ranges: <110 mg/dL before meals <200 mg/dL all other times of the day Blood specimen (specimen) 04/15/2011 8:59 PM EST 04/15/2011 8:59 PM EST Randy Padilla MD POINT OF CARE TEST O RDERABLES Performing Organization Address [facility]/ZIP Co de Phone Number [facility] * POCT GLUCOSE LAB USE ONLY (04/15/2011 4:07 PM EST) Glucose, POC 162 60 - 199 mg/dL [facility] Comment: Supplemental ranges: <110 mg/dL before meals <200 mg/dL all other times of the day Blood specimen (specimen) 04/15/2011 4:07 PM EST 04/15/2011 4:07 PM EST Randy Padilla MD POINT OF CARE TEST O RDERAJAZZY Performing Organization Address [facility] de Phone Number [facility] * POCT GLUCOSE LAB USE ONLY (04/15/2011 12:46 PM EST) Glucose, POC 157 60 - 199 mg/dL [facility] Comment: Supplemental ranges: <110 mg/dL before meals <200 mg/dL all other times of the day Blood specimen (specimen) 04/15/2011 12:46 PM EST 04/15/2011 12:46 PM EST Randy Padilla MD POINT OF CARE TEST O BHASKAR Performing Organization Address [facility] Phone Number [facility] * POCT GLUCOSE LAB USE ONLY (04/15/2011 8:34 AM EST) Glucose, POC 173 60 - 199 mg/dL [facility] Comment: Supplemental ranges: <110 mg/dL before meals <200 mg/dL all other times of the day Blood specimen (specimen) 04/15/2011 8:34 AM EST 04/15/2011 8:34 AM EST Randy Padilla MD POINT OF CARE TEST O RDERAJAZZY Performing Organization Address [facility] Phone Number [facility] * (ABNORMAL) DIFFERENTIAL, AUTOMATED (04/15/2011 6:05 AM [...] Padilla MD CHEMISTRY ORDERABLES Performing Organization Address [facility] Phone Number [facility] * POCT GLUCOSE LAB USE ONLY (04/14/2011 8:46 PM EST) Glucose, POC 156 60 - 199 mg/dL [facility] Comment: Supplemental ranges: <110 mg/dL before meals <200 mg/dL all other times of the day Blood specimen (specimen) 04/14/2011 8:46 PM EST 04/14/2011 8:46 PM EST Randy Padilla MD POINT OF CARE TEST O RDERABLES Performing Organization Address [facility] Phone Number [facility] * POCT GLUCOSE LAB USE ONLY (04/14/2011 5:36 PM EST) Glucose, POC 159 60 - 199 mg/dL [facility] Comment: Supplemental ranges: <110 mg/dL before meals <200 mg/dL all other times of the day Blood specimen (specimen) 04/14/2011 5:36 PM EST 04/14/2011 5:36 PM EST Randy Padilla MD POINT OF CARE TEST O RDERABLES Performing Organization Address [facility] Phone Number [facility] * (ABNORMAL) POCT GLUCOSE LAB USE ONLY (04/14/2011 1:31 PM EST) Glucose, POC 201(H) 60 - 199 mg/dL [facility] Comment: Supplemental ranges: <110 mg/dL before meals <200 mg/dL all other times of the day Blood specimen (specimen) 04/14/2011 1:31 PM EST 04/14/2011 1:31 PM EST Randy Padilla MD POINT OF CARE TEST O RDERAJAZZY Performing Organization Address [facility]/ZIP Co de Phone Number DONNIE DIETZ * [...] Padilla MD CHEMISTRY ORDERABLES Performing Organization Address City/[facility] Co de Phone Number DONNIE DIETZ * [...] TEST O RDERABLES Performing Organization Address City/[facility] Co de Phone Number DONNIE DIETZ * [...] MD HEMATOLOGY ORDERABLE S Performing Organization Address [facility] de Phone Number DONNIE DIETZ * LACTIC ACID, PLASMA (04/14/2011 8:00 AM EST) Lactic Acid 1.3 0.5 - 2.2 mmol/L [facility]ERN[facility] MILLENNIUM Blood specimen (specimen) 04/14/2011 8:00 AM EST 04/14/2011 8:31 PM EST Randy Padilla MD CHEMISTRY ORDERABLES Performing Organization Address [facility] Co de Phone Number [facility]ER[facility] HIGGINSENNIUM * [...] Padilla MD CHEMISTRY ORDERABLES Performing Organization Address [facility] Phone Number [facility] * POCT GLUCOSE LAB USE ONLY (04/13/2011 8:22 PM EST) Glucose, POC 167 60 - 199 mg/dL [facility] Comment: Supplemental ranges: <110 mg/dL before meals <200 mg/dL all other times of the day Blood specimen (specimen) 04/13/2011 8:22 PM EST 04/13/2011 8:22 PM EST Randy Padilla MD POINT OF CARE TEST O RDERABLES Performing Organization Address [facility] Phone Number [facility] * POCT GLUCOSE LAB USE ONLY (04/13/2011 5:58 PM EST) Glucose, POC 164 60 - 199 mg/dL [facility] Comment: Supplemental ranges: <110 mg/dL before meals <200 mg/dL all other times of the day Blood specimen (specimen) 04/13/2011 5:58 PM EST 04/13/2011 5:58 PM EST Randy Padilla MD POINT OF CARE TEST O RDERAJAZZY Performing Organization Address [facility] Phone Number [facility] * (ABNORMAL) BLOOD GAS 2 ARTERIAL (04/13/2011 5:53 PM EST) pH, Arterial 7.37 CERNER MILLENNIUM PCO2, Arterial 30(L) mmHg CERNE R MILLENNIUM PO2, Arterial 79(L) mmHg [facility]ERNER MILLENNIUM Bicarbonate, Arterial 16.8(L) mmol/L [facility]ERN[facility] MILLENNIUM Base Excess, Arterial -8.4(L) mmol/L [facility] MILLENNIUM Hgb Blood Gas 11.5(L) gm/dL [facility]ERNER MILLENNIUM Comment: Total Hemoglobin (in gm/dL) ?Based on [facility] Hematology ranges: ?Age ?Reference Range Less than [...] CARE TEST O RDERABLES Performing Organization Address [facility] Phone Number [facility] * Lactic acid, plasma (04/13/2011 5:30 PM EST) Lactic Acid 1.8 0.5 - 2.2 mmol/L [facility] Blood specimen (specimen) 04/13/2011 5:30 PM EST 04/14/2011 7:25 PM EST Randy Padilla MD CHEMISTRY ORDERABLES Performing Organization Address [facility] Phone Number [facility] * POCT GLUCOSE LAB USE ONLY (04/13/2011 1:08 PM EST) Glucose, POC 117 60 - 199 mg/dL [facility] Comment: Supplemental ranges: <110 mg/dL before meals <200 mg/dL all other times of the day Blood specimen (specimen) 04/13/2011 1:08 PM EST 04/13/2011 1:08 PM EST Randy Padilla MD POINT OF CARE TEST O RDERABLES Performing Organization Address [facility] de Phone Number [facility] * (ABNORMAL) BLOOD GAS 2 ARTERIAL (04/13/2011 12:54 PM EST) pH, Arterial 7.40 CERNER MILLENNIUM PCO2, Arterial 28(L) mmHg CERNE R MILLENNIUM PO2, Arterial 89 mmHg CERNER MILLENNIUM Bicarbonate, Arterial 16.9(L) mmol/L CERNER MILLENNIUM Base Excess, Arterial -7.9(L) mmol/L CERNER MILLENNIUM Hgb Blood Gas 10.6(L) gm/dL [facility]ERN[facility] MILLENNIUM Comment: Total Hemoglobin (in gm/dL) ?Based on [facility] Hematology ranges: ?Age ?Reference Range Less than [...] al) mmol/L CERNER MILLENNIUM Comment: Noted by electrical and instrument mechanic. Please note: Patients with WBC [...] CARE TEST O RDERABLES Performing Organization Address [facility] de Phone Number [facility] * Lactic acid, plasma (04/13/2011 12:45 PM EST) Lactic Acid 1.9 0.5 - 2.2 mmol/L [facility] Blood specimen (specimen) 04/13/2011 12:45 PM EST 04/14/2011 7:19 PM EST Randy Padilla MD CHEMISTRY ORDERABLES Performing Organization Address [facility] de Phone Number [facility] * POCT GLUCOSE LAB USE ONLY (04/13/2011 8:37 AM EST) Glucose, POC 128 60 - 199 mg/dL [facility] Comment: Supplemental ranges: <110 mg/dL before meals <200 mg/dL all other times of the day Blood specimen (specimen) 04/13/2011 8:37 AM EST 04/13/2011 8:37 AM EST Randy Padilla MD POINT OF CARE TEST O RDERABLES Performing Organization Address [facility] Phone Number [facility] * (ABNORMAL) BLOOD GAS 2 ARTERIAL (04/13/2011 8:29 AM EST) pH, Arterial 7.38 CERNER MILLENNIUM PCO2, Arterial 28(L) mmHg CERNE R MILLENNIUM PO2, Arterial 78(L) mmHg CERNER MILLENNIUM Bicarbonate, Arterial 15.7(L) mmol/L CERNER MILLENNIUM Base Excess, Arterial -9.5(L) mmol/L CERNER MILLENNIUM Hgb Blood Gas 10.2(L) gm/dL CERNER MILLENNIUM Comment: Total Hemoglobin (in gm/dL) ?Based on [facility] Hematology ranges: ?Age ?Reference Range Less than [...] al) mmol/L CERNER MILLENNIUM Comment: noted by vulcanizer operator Please note: Patients with WBC >100,000 may have falsely elevated Potassium levels. Contact the Clinical Chemistry Laboratory if there are any questions. ICa Whole Blood 0.91(Criti juan manuel) mmol/L CERNER MILLENNIUM Comment: noted by vulcanizer operator Reference Ranges: ?? < 19 yrs: [...] CARE TEST O RDERABLES Performing Organization Address [facility] de Phone Number [facility]ERNER MILLENNIUM * (ABNORMAL) Lactic acid, plasma (04/13/2011 5:47 AM EST) Lactic Acid 2.3(H) 0.5 - 2.2 mmol/L CERNER MILLENNIUM Blood specimen (specimen) 04/13/2011 5:47 AM EST 04/13/2011 5:55 AM EST Randy Padilla MD CHEMISTRY ORDERABLES Performing Organization Address [facility] de Phone Number [facility] * (ABNORMAL) BLOOD GAS 2 ARTERIAL (04/13/2011 5:42 AM EST) pH, Arterial 7.36 CERNER MILLENNIUM PCO2, Arterial 36 mmHg CERNE R MILLENNIUM PO2, Arterial 71(L) mmHg CERNER MILLENNIUM Bicarbonate, Arterial 19.9(L) mmol/L CERNER MILLENNIUM Base Excess, Arterial -5.6(L) mmol/L CERNER MILLENNIUM Hgb Blood Gas 12.1(L) gm/dL CERNER MILLENNIUM Comment: Total Hemoglobin (in gm/dL) ?Based on [facility] Hematology ranges: ?Age ?Reference Range Less than [...] Thromboplastin Time 27 25 - 37 sec [facility] MILLENNIUM Comment: Recommended therapeutic PTT range for full dose unfractionated heparin is 80-114 seconds. Blood specimen (specimen) 04/13/2011 4:00 AM EST 04/13/2011 4:10 AM EST Narrative Authorizing Provider Result Telma Fowler MD HEMATOLOGY ORDERABLE S Performing Organization Address [facility] Phone Number [facility] * (ABNORMAL) Prothrombin Time (04/13/2011 4:00 AM EST) Prothrombin Time 14.8(H) 12.3 - 14.7 sec [facility] MILLENNIUM Comment: [facility] Transfusion Committee Guidelines: INR less than 2.0, PTT less than OR equal to 43.5 seconds, or Fibrinogen greater than or equal to 100 mg/dl indicate adequate procoagulant activity for hemostasis in patients without underlying bleeding disorders. International Normalization Ratio 1.1 0.9 - 1.1 [facility] Blood specimen (specimen) 04/13/2011 4:00 AM EST 04/13/2011 4:10 AM EST Narrative Authorizing Provider Result Telma Fowler MD HEMATOLOGY ORDERABLE S Performing Organization Address [facility] Phone Number DONNIE DIETZ * (ABNORMAL) Basic Metabolic Panel (non-fasting) (04/13/2011 4:00 AM EST) Glucose 158 60 - 199 mg/dL [facility] MILLENNIUM Comment:Diabetes: >=200 mg/d L plus symptoms Blood Urea Nitrogen 12 10 - 20 mg/dL [facility] MILLENNIUM Creatinine 1.12 0.80 - 1.50 mg/dL CERNER MILLENNIUM Sodium 139 135 - 145 mmol/L [facility] MILL[facility] Potassium 3.7 3.5 - 5.0 mmol/L [facility] MILLEN[facility]UM Comment: Please note: ??Patients with [...] Comment: Total Hemoglobin (in gm/dL) ?Based on [facility] Hematology ranges: ?Age ?Reference Range Less than [...] CARE TEST O RDERABLES Performing Organization Address [facility] Phone Number [facility] * Lactic acid, plasma (04/12/2011 11:55 PM EST) Lactic Acid 1.8 0.5 - 2.2 mmol/L [facility] Comment:result rechecked-llu Blood specimen (specimen) 04/12/2011 11:55 PM EST 04/13/2011 12:04 AM EST Randy Padilla MD CHEMISTRY ORDERABLES Performing Organization Address [facility] Phone Number [facility] * POCT GLUCOSE LAB USE ONLY (04/12/2011 8:41 PM EST) Pathologist [facility] Glucose, POC 129 60 - 199 mg/dL [facility] Comment: Supplemental ranges: <110 mg/dL before meals <200 mg/dL all other times of the day Blood specimen (specimen) 04/12/2011 8:41 PM EST 04/12/2011 8:41 PM EST Randy Padilla MD POINT OF CARE TEST O RDERABLES Performing Organization Address [facility] Phone Number [facility] * (ABNORMAL) BLOOD GAS 2 ARTERIAL (04/12/2011 8:05 PM EST) pH, Arterial 7.37 7.35 - 7.45 CERNER MILLENNIUM PCO2, Arterial 35 35 - 45 mmHg [facility] MILLENNIUM PO2, Arterial 72(L) 85 - 104 mmHg CERNER MILLENNIUM Bicarbonate, Arterial 19.6(L) 20.0 - 26.0 mmol/L CERNER MILLENNIUM Base Excess, Arterial -5.8(L) -3.0 - 3.0 mmol/L [facility] MILLENNIUM Hgb Blood Gas 12.0(L) 13.7 - 17.5 gm/dL [facility] Comment: Total Hemoglobin (in gm/dL) ?Based on [facility] Hematology ranges: ?Age ?Reference Range Less than [...] MD HEMATOLOGY ORDERABLE S Performing Organization Address [facility] de Phone Number [facility] MILLENNI[facility] * (ABNORMAL) Lactic acid, plasma (04/12/2011 5:25 PM EST) Lactic Acid 4.5(H) 0.5 - 2.2 mmol/L CERNER MILLENNIUM Blood specimen (specimen) 04/12/2011 5:25 PM EST 04/12/2011 5:40 PM EST Randy Padilla MD CHEMISTRY ORDERABLES Performing Organization Address [facility] de Phone Number CERNER MILLENNIUM [...] 7.29(Criti juan manuel) CERNER MILLENNIUM Comment:Noted by electrical and instrument mechanic. PCO2, Arterial 41 mmHg CERNE R MILLENNIUM PO2, Arterial 74(L) mmHg CERNER MILLENNIUM Bicarbonate, Arterial 19.6(L) mmol/L CERNER MILLENNIUM Base Excess, Arterial -6.9(L) mmol/L CERNER MILLENNIUM Hgb Blood Gas 13.0(L) gm/dL CERNER MILLENNIUM Comment: Total Hemoglobin (in gm/dL) ?Based on [facility] Hematology ranges: ?Age ?Reference Range Less than [...] CARE TEST O BHASKAR Performing Organization Address [facility] de Phone Number CERNER MILLENNIUM [...] CARE TEST O KORTNEYERAJAZZY Performing Organization Address [facility] Co de Phone Number CERNER MILLENNIUM * (ABNORMAL) POCT GLUCOSE LAB USE ONLY (04/12/2011 3:49 PM EST) Glucose, POC 217(H) 60 - 199 mg/dL CERNER MILLENNIUM Comment: Supplemental ranges: <110 mg/dL before meals <200 mg/dL all other times of the day Blood specimen (specimen) 04/12/2011 3:49 PM EST 04/12/2011 3:49 PM EST Randy Padilla MD POINT OF CARE TEST O RDERABLES [facility] * (ABNORMAL) BLOOD GAS ARTERIAL (04/12/2011 3:10 [...] Comment: Total Hemoglobin (in gm/dL) ?Based on [facility] Hematology ranges: ?Age ?Reference Range Less than [...] Padilla MD CHEMISTRY ORDERABLES Performing Organization Address [facility] de Phone Number DONNIE DIETZ * POCT GLUCOSE LAB USE ONLY (04/12/2011 2:57 PM EST) Glucose, POC 198 60 - 199 mg/dL DONNIE HIGGINSENNIUM Comment: Supplemental ranges: <110 mg/dL before meals <200 mg/dL all other times of the day Blood specimen (specimen) 04/12/2011 2:57 PM EST 04/12/2011 2:57 PM EST Randy Padilla MD POINT OF CARE TEST O RDERABLES Performing Organization Address [facility] Phone Number DONNIE DIETZ * KAUR HOLD (04/12/2011 2:55 PM EST) Pathologist [facility] Kaur Hold Sample in lab. [facility] Blood specimen (specimen) 04/12/2011 2:55 PM EST 04/12/2011 3:30 PM EST Randy Padilla MD CHEMISTRY ORDERABLES Performing Organization Address [facility] de Phone Number DONNIE DIETZ * (ABNORMAL) Hepatic Function Panel (04/12/2011 2:55 PM EST) Pathologist [facility] Protein, Total 4.6(L) 6.4 - 8.3 gm/dL [...] Padilla MD CHEMISTRY ORDERABLES Performing Organization Address [facility] de Phone Number [facility] VERNONIUM * (ABNORMAL) Phosphorus (04/12/2011 2:55 PM EST) Phosphorus 4.6(H) 2.5 - 4.5 mg/dL CERNER MILLENNIUM Blood specimen (specimen) 04/12/2011 2:55 PM EST 04/12/2011 3:22 PM EST Randy Padilla MD CHEMISTRY ORDERABLES Performing Organization Address [facility] Phone Number [facility] * (ABNORMAL) Magnesium (04/12/2011 2:55 PM EST) Magnesium 0.54(L) 0.69 - 1.07 mmol/L [facility] Blood specimen (specimen) 04/12/2011 2:55 PM EST 04/12/2011 3:22 PM EST Randy Padilla MD CHEMISTRY ORDERABLES Performing Organization Address [facility] Phone Number [facility] * (ABNORMAL) Prothrombin Time (04/12/2011 2:55 PM EST) Prothrombin Time 15.8(H) 12.3 - 14.7 sec [facility] MILLENNIUM Comment: [facility] Transfusion Committee Guidelines: INR less than 2.0, PTT less than OR equal to 43.5 seconds, or Fibrinogen greater than or equal to 100 mg/dl indicate adequate procoagulant activity for hemostasis in patients without underlying bleeding disorders. International Normalization Ratio 1.2(H) 0.9 - 1.1 [facility] MILLENNIUM Blood specimen (specimen) 04/12/2011 2:55 PM EST 04/12/2011 3:22 PM EST Randy Padilla MD HEMATOLOGY ORDERABLE S Performing Organization Address [facility] Phone Number [facility] * APTT (04/12/2011 2:55 PM EST) Partial [...] 7.21(Criti juan manuel) CERNER MILLENNIUM Comment:Noted by electrical and instrument mechanic. PCO2, Arterial 41 mmHg CERNE R MILLENNIUM PO2, Arterial 73(L) mmHg CERNER MILLENNIUM Bicarbonate, Arterial 16.1(L) mmol/L CERNER MILLENNIUM Base Excess, Arterial -11.7(L) mmol/L CERNER MILLENNIUM Hgb Blood Gas 12.4(L) gm/dL CERNER MILLENNIUM Comment: Total Hemoglobin (in gm/dL) ?Based on [facility] Hematology ranges: ?Age ?Reference Range Less than [...] 7.20(Criti juan manuel) CERNER MILLENNIUM Comment:Noted by electrical and instrument mechanic. PCO2, Arterial 48(H) mmHg CERNE R MILLENNIUM PO2, Arterial 109(H) mmHg CERNER MILLENNIUM Bicarbonate, Arterial 18.5(L) mmol/L CERNER MILLENNIUM Base Excess, Arterial -9.5(L) mmol/L CERNER MILLENNIUM Hgb Blood Gas 13.0(L) gm/dL CERNER MILLENNIUM Comment: Total Hemoglobin (in gm/dL) ?Based on [facility] Hematology ranges: ?Age ?Reference Range Less than [...] CARE TEST O BHASKAR Performing Organization Address [facility] Co de Phone Number CERNER MILLENNIUM * [...] Comment: Total Hemoglobin (in gm/dL) ?Based on [facility] Hematology ranges: ?Age ?Reference Range Less than [...] CARE TEST O RDERAJAZZY Performing Organization Address [facility] Co de Phone Number DONNIE DIETZ * (ABNORMAL) POCT GLUCOSE LAB USE ONLY (04/12/2011 9:53 AM EST) Pathologist [facility] Glucose, POC 286(H) 60 - 199 mg/dL [facility]R Comment: Supplemental ranges: <110 mg/dL before meals <200 mg/dL all other times of the day Blood specimen (specimen) 04/12/2011 9:53 AM EST 04/12/2011 9:53 AM EST Randy Padilla MD POINT OF CARE TEST O BHASKAR Performing Organization Address [facility] de Phone Number DONNIE DIETZ * ANTIBODY SCREEN (04/12/2011 8:25 AM EST) Pathologist [facility] Ab Screen Interp Negative DONNIE DIETZ Expires at [id number] on: [id number] DONNIE DIETZ Blood specimen (specimen) 04/12/2011 8:25 AM EST 04/12/2011 8:38 AM EST Erik Gill MD BLOOD BANK LAB ORDER BRIANNE Performing Organization Address [facility] de Phone Number DONNIE DIETZ [...] Gill MD CHEMISTRY ORDERABLES Performing Organization Address [facility] Co de Phone Number DONNIE DIETZ * Lavender Tube HOLD (04/12/2011 8:25 AM EST) Lavender Hold Sample in lab. DONNIE DIETZ Blood specimen (specimen) 04/12/2011 8:25 AM EST 04/12/2011 8:38 AM EST Erik Gill MD HEMATOLOGY ORDERABLE S Performing Organization Address [facility] Co de Phone Number DONNIE DIETZ * [...] (Bezet) 450 ms MUSE SYSTEM Calculated P [place] 33 degrees MUSE SYSTEM Calculated R [place] 50 degrees MUSE SYSTEM Calculated T [place] 66 degrees MUSE SYSTEM INTERPRETATION Sinus rhythm [...] THOMPSON ?Ordered By: ROBYN FOWLER ? MR#: [id number] ?LOC: ??ICUN ? /Sex: ?? 7 (75 years), ? Male ? PROCEDURE: Urine Culture ?SOURCE: [facility] ? COLLECTED: 04/12/2011 07:26 ? STARTED: 04/12/2011 08:10 ? FINAL REPORT ? Final Report ? Verified: 06:39 ? No growth (Less than 1,000 cfu/ml). ? ____ CERNER MILLENNIUM Urine specimen obtained via straight catheter (specimen) 04/12/2011 7:26 AM EST 04/12/2011 8:10 AM EST Robyn Fwoler MD MICROBIOLOGY - GENER AL ORDERABLES Performing Organization Address [facility] Co de Phone Number CERNER MILLENNIUM * [...] Urine Dipstick Clear Clear CERNER MILLENNIUM Specific [place] [address] Urine Automated 1.021 1.002 - 1.030 CERNER MILLENNIUM Color, Urine Dipstick Yellow Yellow CERNER MILLENNIUM RBC, Urine Not Present 0 - 3 CERNER MILLENNIUM WBC, Urine Not Present 0 - 3 CERNER MILLENNIUM Urine specimen (specimen) 04/12/2011 7:25 AM EST 04/12/2011 7:39 AM EST Robyn Fowler MD URINE ORDERABLES Performing Organization Address [facility] Co de Phone Number CERNER MILLENNIUM * [...] 7:15 AM EST) Troponin-T <0.03 <=0.03 ng/mL [facility] Comment: 0.03 ng/mL: Represents the 99th percentile upper reference limit for normals. >0.03 ng/mL: Elevated cardiac troponin T level indicative of myocardial damage. Diagnosis of acute, evolving or recent [place] requires a typical rise and gradual fall [...] consensus document of the Joint Society of Cardiology/[place] College [employer] Committee for the redefinition of myocardial infarction. Journal of the [place] College of Cardiology 2000; 36: 959-969] Blood specimen (specimen) 04/12/2011 7:15 AM EST 04/12/2011 7:34 AM EST Robyn Fowler MD CHEMISTRY ORDERABLES Performing Organization Address [facility] de Phone Number [facility] * APTT (04/12/2011 7:15 AM EST) Partial Thromboplastin Time 28 25 - 37 sec [facility] Comment: Recommended therapeutic PTT range for full dose unfractionated heparin is 80-114 seconds. Blood specimen (specimen) 04/12/2011 7:15 AM EST 04/12/2011 7:34 AM EST Robyn Fowler MD HEMATOLOGY ORDERABLE S Performing Organization Address [facility] Phone Number [facility] * Prothrombin Time (04/12/2011 7:15 AM EST) Prothrombin Time 13.2 12.3 - 14.7 sec [facility] Comment: [facility] Transfusion Committee Guidelines: INR less than 2.0, PTT less than OR equal to 43.5 seconds, or Fibrinogen greater than or equal to 100 mg/dl indicate adequate procoagulant activity for hemostasis in patients without underlying bleeding disorders. International Normalization Ratio 1.0 0.9 - 1.1 [facility] In[facility]buyHONORHE[facility]ENTER[facility]UM Blood specimen (specimen) 04/12/2011 7:15 AM EST 04/12/2011 7:34 AM EST Robyn Fowler MD HEMATOLOGY ORDERABLE S Performing Organization Address [facility] de Phone Number [facility] * (ABNORMAL) Glucose, random (04/12/2011 7:15 AM EST) Glucose 299(H) 60 - 199 mg/dL [facility] Comment:Diabetes: >=200 mg/d L plus symptoms Blood specimen (specimen) 04/12/2011 7:15 AM EST 04/12/2011 7:34 AM EST Robyn Fowler MD CHEMISTRY ORDERABLES Performing Organization Address [facility] Phone Number [facility] * Creatinine, serum (04/12/2011 7:15 AM EST) Creatinine 0.98 0.80 - 1.50 mg/dL [facility] InventbuyENNIUM Est Glomerular Filtration Rate >60 >=60 [facility] MILLENNIUM Comment: The National Kidney [...] Fowler MD CHEMISTRY ORDERABLES Performing Organization Address [facility] de Phone Number CERMARTI JUNIORIUM * BUN (04/12/2011 7:15 AM EST) Blood Urea Nitrogen 14 10 - 20 mg/dL CERNER MILLENNIUM Blood specimen (specimen) 04/12/2011 7:15 AM EST 04/12/2011 7:34 AM EST Robyn Fowler MD CHEMISTRY ORDERABLES Performing Organization Address [facility] de Phone Number CERMARTI HIGGINSHONORHE[facility] CENTERIUM * Electrolytes panel (04/12/2011 7:15 [...] Fowler MD CHEMISTRY ORDERABLES Performing Organization Address [place]/[facility] Co de Phone Number DONNIE DIETZ * [...] MD HEMATOLOGY ORDERABLE S Performing Organization Address [facility] Co de Phone Number DONNIE DIETZ documented [...] Routine documented in this encounter Care Teams Mapping Specialist Relationship Specialty Start Date End Date Arely Vickers MD PCP - General 04/12/11 09/15/16 documented as of this encounter
--- OUTSIDE RECORDS SUMMARY | 2023-12-28 06:43 | XMS_ITS | Encounter Summary ---
Author Organization [facility] Address [facility] [place] [address] Care Team Providers Care Property Coordinator Name Role Phone Arely Vickers MD Primary Care Provider [phone] Reason for Visit * Reason Comments Abdominal Pain Encounter Details Date Type Department Care Team (Latest Contact Info) Description 04/12/2011 7:04 AM EST - 04/16/2011 1:[address] [facility] Hospital Encounter [address] [place] [address] Robyn Fowler MD [facility] [place] [address] Randy Padilla MD [facility] [place] [address] Steven Borges MD [facility] [place] [address] AAA (abdominal aortic aneurysm) Discharge Disposition: Home [...] For any problems or questions please call [phone] Angela Mujica RN Vascular Nurse Clinician Loretta [...] yesterday. Will replete K again today. ID: [facility] trending down - patient on Vanc/zosyn for superimposed diverticulitis. Will start PO cipro/flagyl and have him continue for 7 more days. Dispo: Home today. * Christopher Barnes RN - 04/15/2011 4:05 PM EST Patient received from [facility] to [facility] in stable condition. 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 PRIMARY CARE PHYSICIAN: ARELY VICKERS MD [facility] [address] / [facility] [id number] POTENTIAL DISCHARGE NEEDS: None anticipated; states can monitor his BP at home PATIENT/FAMILY EDUCATION NEEDS:per discharge summary ANTICIPATED BARRIERS TO DISCHARGE:none TRANSPORTATION @ D/C:radha Willard PLAN: Vascular CRC will continue to monitor progress, follow for continuity of care and assist withdischarge planning while hospitalized * Abhi Dukes, PharmD - 04/14/2011 2:08 PM EST Clinical Pharmacist Note-Vanc Cali Thompson [id number] 1935 Cali Thompson is a 75 y.o. [...] have. Alternately, during off-hours you may call [phone] to contact a pharmacist. ABHI DUKES, JONELLE [...] : UOP adequate, lytes/Cr acceptable, HLIV ID: [facility] up a bit today - patient Vanc/zosyn for superimposed diverticulitis Dispo: Up out of bed today. Will transfer to [facility] today * Estela Flores RCP - 04/13/2011 5:06 PM EST Patient found on noted settings. SBT done and patient passed and was extubated to 4 lpm NC with no complications. YA * Poli Chowdhury MD - 04/13/2011 3:01 PM EST Cali Thompson [id number] 04/13/2011 04/12/2011 7:04 AM Critical Care Medicine [...] Q12H ??? DISCONTD: ceFAZolin 2 g Intravenous Cartridge Feeder to OR ??? DISCONTD: vancomycin 1 g Intravenous Q12H No Known Allergies EXAM: Temp: [35.7 ??C (96.3 ??F)-37.2 ??C (99 ??F)] Heart Rate: [47-80] Resp: [10-19] BP: (104)/(61) SpO2: [91 %-98 %] I/O last 3 completed shifts: In: 81390 [I.V.:57085] Out: 2300 [Urine:1700; Blood:600] I/O this shift: [...] 97 % SpO2: [91 %-98 %] SIMV/PS [id number] PEEP 5 FiO2 40% Last ABG 7.36/35/70/19 Intake/Output Summary (Last 24 hours) at 04/13/11 1155 Last data filed at 04/13/11 1000 Gross per 24 hour Intake 40538 ml Output 2775 ml Net 9784 ml [...] PM EST Clinical Pharmacist Note-Vanc Cali Thompson [id number] 1935 Cali Thompson is a 75 y.o. [...] have. Alternately, during off-hours you may call [phone] to contact a pharmacist. JIA VICTORIA PHARMD Pager [phone] * Chris Johnson - 04/12/2011 8:28 PM [...] at 04/12/111945 Gross per 24 hour Intake 76948 ml Output 1755 ml Net 8949 ml [...] Gill MD - 04/12/2011 8:08 AM EST [facility] staff procedure note: Under sterile cond RIGHT radial a-line placed for hemodynamic monitoring. Hand intact, excellent waveform. documented in this encounter H&P Notes * Poli Chowdhury MD - 04/12/2011 8:22 AM EST Cali Thompson [id number] 04/12/2011 04/12/2011 7:04 AM Critical Care Medicine [...] Once ??? DISCONTD: ceFAZolin 2 g Intravenous Cartridge Feeder to OR No Known Allergies EXAM: Temp: [...] prior known history of AAA, presents to [facility] with c/o abdominal pain for [...] urgently once medically optimized, endovascular graft candidate [place] [facility] Staff: I saw and evaluated Mr. Thompson [...] 04/17/2011 11:15 AM ESTAssociated Order(s): SCAN DOC: LINE ASSEMBLER AIRCRAFT documented in this encounter ED Notes * [...] with current pain regimen. Encouraged to notify engineer technical staff when inneed of pain medication. Continue [...] Joan Vail - 04/12/2011 4:41 PM EST [facility] Operative Note Patient Name: Cali Thompson : [id number] MR#: [id number] Case Date: 04/12/2011 Surgeon: Surgeon(s) and Role: * STEVEN BORGES MD - Primary * JOAN VAIL MD - Fellow Preoperative diagnosis: symptomatic infrarenal aortic aneurysm Postoperative diagnosis: same Procedure(s): Bilateral femoral arterial exposures Endovascular repair of aortic aneurysm, using NephroPlusith Flex [id number] via right; ipsilateralextension with TFLE 16-56; contralateral [...] point on the right we advanced a [employer] device type [id number], and this was advanced up to the [...] the delivery system was removed, and a 12-Guyanese [place] dry seal was advanced. On the right [...] removed the delivery system and advanced a 20-Guyanese [employer] dry seal up the right side. We [...] both sides and clamped inflow with Farley Daen clamps as well as outflow with angled [...] Operative Note Patient Name: Cali Thompson : [id number] MR#: [id number] Case Date: 04/12/2011 Surgeon: Surgeon(s) and Role: * STEVEN BORGES MD - Primary * JOAN VAIL MD - Fellow Preoperative diagnosis: symptomatic infrarenal aortic aneurysm Postoperative diagnosis: same Procedure(s): Bilateral femoral arterial exposures Endovascular repair of aortic aneurysm, using [employer] Flex [id number] via right; ipsilateralextension with TFLE 16-56; contralateral [...] exposures Endovascular repair of aortic aneurysm, using [employer] Flex [id number] via right; ipsilateralextension with TFLE 16-56; contralateral extension with TFLE 16-73 History of Presentation: 75 year old male without prior known history of AAA, presented to [facility] with complaints of abdominal pain [...] For any problems or questions please call [phone] Angela Mujica RN Vascular Nurse Clinician Loretta Matthews RN Vascular Nurse Clinician Future Appointments and Orders Future Orders Please Complete By Expires CT abdomen & pelvis with contrast [[id number] Custom] 05/13/11 04/12/12 Process Instructions: Scheduling Instructions: [...] to the ED as a transfer from [facility] vascular with a dx of [...] bedside upon pt arrival. Pt placed on cardiac tech, labs obtained and sent. Pt c/o having [...] 1:30 PM EDT Laboratory Appointment Lab [address] [place] [address] 01/02/2024 3:00 PM EDT Office Visit [place] [address] Adam Costa MD [facility] [place] [address] documented as of this encounter Procedures Procedure [...] IMPLANTABLE DEVICES SCAN 04/17/2011 11:15 AM EST LINE ASSEMBLER AIRCRAFT SCAN 04/17/2011 11:15 AM EST POCT GLUCOSE [...] SCAN EXT O RDR/RSLT * SCAN DOC: LINE ASSEMBLER AIRCRAFT (04/17/2011 11:15 AM EST) Anatomical Region Laterality Modality Other Narrative 04/17/2011 3:20 PM EST Procedure Note Provider, Scanning - 04/17/2011 11:15 AM EST Scanning Provider MEDIA MGR SCAN EXT O RDR/RSLT * (ABNORMAL) POCT GLUCOSE LAB USE ONLY (04/16/2011 10:58 AM EST) Glucose, POC 257(H) 60 - 199 mg/dL [facility] Comment: Supplemental ranges: <110 mg/dL before meals <200 mg/dL all other times of the day Blood specimen (specimen) 04/16/2011 10:58 AM EST 04/16/2011 10:58 AM EST Randy Padilla MD POINT OF CARE TEST O BHASKAR Performing Organization Address [facility] Co de Phone Number [facility] Bike [facility] * POCT GLUCOSE LAB USE ONLY (04/16/2011 7:21 AM EST) Glucose, POC 181 60 - 199 mg/dL [facility] Bike [facility] Comment: Supplemental ranges: <110 mg/dL before [...] Padilla MD CHEMISTRY ORDERABLES Performing Organization Address [facility] Co de Phone Number CERMARTI [...] CARE TEST O BHASKAR Performing Organization Address [facility] de Phone Number [facility] * POCT GLUCOSE LAB USE ONLY (04/15/2011 4:07 PM EST) Glucose, POC 162 60 - 199 mg/dL [facility] Comment: Supplemental ranges: <110 mg/dL before meals <200 mg/dL all other times of the day Blood specimen (specimen) 04/15/2011 4:07 PM EST 04/15/2011 4:07 PM EST Randy Padilla MD POINT OF CARE TEST O BHASKAR Performing Organization Address [facility] Co de Phone Number [facility] * POCT GLUCOSE LAB USE ONLY (04/15/2011 12:46 PM EST) Glucose, POC 157 60 - 199 mg/dL [facility] Comment: Supplemental ranges: <110 mg/dL before meals <200 mg/dL all other times of the day Blood specimen (specimen) 04/15/2011 12:46 PM EST 04/15/2011 12:46 PM EST Randy Padilla MD POINT OF CARE TEST O BHASKAR Performing Organization Address [facility] Co de Phone Number [facility] * POCT GLUCOSE LAB USE ONLY (04/15/2011 8:34 AM EST) Glucose, POC 173 60 - 199 mg/dL [facility] Comment: Supplemental ranges: <110 mg/dL before [...] EST Randy Padilla MD HEMATOLOGY ORDERABLE S [facility] MILLENNIUM * (ABNORMAL) Basic Metabolic Panel (non-fasting) (04/15/2011 6:05 AM EST) Pathologist [facility] Glucose 160 60 - 199 mg/dL CERNER [...] Padilla MD CHEMISTRY ORDERABLES Performing Organization Address [facility] Phone Number [facility] [employer] * POCT GLUCOSE LAB USE ONLY (04/14/2011 8:46 PM EST) Glucose, POC 156 60 - 199 mg/dL [facility] Comment: Supplemental ranges: <110 mg/dL before meals <200 mg/dL all other times of the day Blood specimen (specimen) 04/14/2011 8:46 PM EST 04/14/2011 8:46 PM EST Randy Padilla MD POINT OF CARE TEST O RDERABLES Performing Organization Address [facility] Phone Number [facility] * POCT GLUCOSE LAB USE ONLY (04/14/2011 5:36 PM EST) Glucose, POC 159 60 - 199 mg/dL [facility] Comment: Supplemental ranges: <110 mg/dL before meals <200 mg/dL all other times of the day Blood specimen (specimen) 04/14/2011 5:36 PM EST 04/14/2011 5:36 PM EST Randy Padilla MD POINT OF CARE TEST O RDERABLES Performing Organization Address [facility] Phone Number [facility] [employer] * (ABNORMAL) POCT GLUCOSE LAB USE ONLY (04/14/2011 1:31 PM EST) Glucose, POC 201(H) 60 - 199 mg/dL [facility] Comment: Supplemental ranges: <110 mg/dL before meals <200 mg/dL all other times of the day Blood specimen (specimen) 04/14/2011 1:31 PM EST 04/14/2011 1:31 PM EST Randy Padilla MD POINT OF CARE TEST O RDERABLES Performing Organization Address [facility] Number [facility] * VANCOMYCIN, TROUGH (04/14/2011 10:30 AM EST) Vancomycin, Trough 14.2 mg/L Anna [facility] Comment: Therapeutic range for complicated infections [...] Padilla MD CHEMISTRY ORDERABLES Performing Organization Address [facility] Phone Number [facility] * POCT GLUCOSE LAB USE ONLY (04/14/2011 8:17 AM EST) Glucose, POC 171 60 - 199 mg/dL [facility] Comment: Supplemental ranges: <110 mg/dL before meals <200 mg/dL all other times of the day Blood specimen (specimen) 04/14/2011 8:17 AM EST 04/14/2011 8:17 AM EST Randy Padilla MD POINT OF CARE TEST O RDERABLES Performing Organization Address [facility] Phone Number [facility] * (ABNORMAL) DIFFERENTIAL, AUTOMATED (04/14/2011 8:00 AM EST) Neutrophil % 78.6(H) 34.0 - 71.0 % [facility] Neutrophil Absolute 14.46(H) 1.50 - 6.30 x10(3)/mc [...] MD HEMATOLOGY ORDERABLE S Performing Organization Address City/[facility] Co de Phone Number CERMARTI MILLENNIUM * LACTIC ACID, PLASMA (04/14/2011 8:00 AM EST) Lactic Acid 1.3 0.5 - 2.2 mmol/L CERNER MILLENNIUM Blood specimen (specimen) 04/14/2011 8:00 AM EST 04/14/2011 8:31 PM EST Randy Padilla MD CHEMISTRY ORDERABLES Performing Organization Address [facility] Co de Phone Number CERMARTI [...] EST Randy Padilla MD HEMATOLOGY ORDERABLE S [facility] * (ABNORMAL) BASIC METABOLIC [...] EST) Potassium 3.4(L) 3.5 - 5.0 mmol/L [facility] Comment: Please note: ??Patients with WBC >100,000 may have falsely elevated Potassium levels. ??For accurate Potassium quantification in these patients send serum separator tube (gold top) for subsequent determinations. ??Contact the Clinical Chemistry Laboratory if there are any questions. Blood specimen (specimen) 04/13/2011 9:47 PM EST 04/14/2011 7:16 PM EST Randy Padilla MD CHEMISTRY ORDERABLES Performing Organization Address [facility] Phone Number [facility] * POCT GLUCOSE LAB USE ONLY (04/13/2011 8:22 PM EST) Glucose, POC 167 60 - 199 mg/dL [facility] Comment: Supplemental ranges: <110 mg/dL before meals <200 mg/dL all other times of the day Blood specimen (specimen) 04/13/2011 8:22 PM EST 04/13/2011 8:22 PM EST Randy Padilla MD POINT OF CARE TEST O RDJACKIE Performing Organization Address [facility] Phone Number [facility] * POCT GLUCOSE LAB USE ONLY (04/13/2011 5:58 PM EST) Glucose, POC 164 60 - 199 mg/dL [facility] Comment: Supplemental ranges: <110 mg/dL before meals <200 mg/dL all other times of the day Blood specimen (specimen) 04/13/2011 5:58 PM EST 04/13/2011 5:58 PM EST Randy Padilla MD POINT OF CARE TEST O RDERAJAZZY Performing Organization Address [facility] Phone Number [facility] * (ABNORMAL) BLOOD GAS 2 ARTERIAL (04/13/2011 5:53 PM EST) pH, Arterial 7.37 [facility] PCO2, Arterial 30(L) mmHg CERNE R MILLENNIUM PO2, Arterial 79(L) mmHg CERNER MILLENNIUM Bicarbonate, Arterial 16.8(L) mmol/L CERNER MILLENNIUM Base Excess, Arterial -8.4(L) mmol/L CERNER MILLENNIUM Hgb Blood Gas 11.5(L) gm/dL CERNER MILLENNIUM Comment: Total Hemoglobin (in gm/dL) ?Based on [facility] Hematology ranges: ?Age ?Reference Range Less than [...] CL Whole Blood 117(H) mmol/L CERNE R [facility] Gluc Whole Bld 140 mg/dL [facility]ER[facility] Comment:Diabetes: >=200 mg/d L plus symptoms. Flow Art 4.0 LPM [facility] Blood specimen (specimen) 04/13/2011 5:53 PM EST 04/13/2011 5:53 PM EST Randy Padilla MD POINT OF CARE TEST O RDERAJAZZY Performing Organization Address [facility] Phone Number [facility] * Lactic acid, plasma (04/13/2011 5:30 PM EST) Lactic Acid 1.8 0.5 - 2.2 mmol/L [facility] Blood specimen (specimen) 04/13/2011 5:30 PM EST 04/14/2011 7:25 PM EST Randy Padilla MD CHEMISTRY ORDERABLES Performing Organization Address [facility] Phone Number [facility] * POCT GLUCOSE LAB USE ONLY (04/13/2011 1:08 PM EST) Glucose, POC 117 60 - 199 mg/dL [facility] Comment: Supplemental ranges: <110 mg/dL before meals <200 mg/dL all other times of the day Blood specimen (specimen) 04/13/2011 1:08 PM EST 04/13/2011 1:08 PM EST Randy Padilla MD POINT OF CARE TEST O RDERABLES Performing Organization Address [facility] Phone Number [facility] * (ABNORMAL) BLOOD GAS 2 ARTERIAL (04/13/2011 12:54 PM EST) pH, Arterial 7.40 CERNER MILLENNIUM PCO2, Arterial 28(L) mmHg CERNE R MILLENNIUM PO2, Arterial 89 mmHg CERNER MILLENNIUM Bicarbonate, Arterial 16.9(L) mmol/L CERNER MILLENNIUM Base Excess, Arterial -7.9(L) mmol/L CERNER MILLENNIUM Hgb Blood Gas 10.6(L) gm/dL CERNER MILLENNIUM Comment: Total Hemoglobin (in gm/dL) ?Based on [facility] Hematology ranges: ?Age ?Reference Range Less than [...] al) mmol/L CERNER MILLENNIUM Comment: Noted by percussion instrument repairer. Please note: Patients with WBC [...] CARE TEST O RDERAJAZZY Performing Organization Address [facility] de Phone Number [facility] * Lactic acid, plasma (04/13/2011 12:45 PM EST) Lactic Acid 1.9 0.5 - 2.2 mmol/L [facility] MILLENNIUM Blood specimen (specimen) 04/13/2011 12:45 PM EST 04/14/2011 7:19 PM EST Randy Padilla MD CHEMISTRY ORDERABLES Performing Organization Address [facility] de Phone Number [facility] * POCT GLUCOSE LAB USE ONLY (04/13/2011 8:37 AM EST) Glucose, POC 128 60 - 199 mg/dL [facility] MILLENNIUM Comment: Supplemental ranges: <110 mg/dL before meals <200 mg/dL all other times of the day Blood specimen (specimen) 04/13/2011 8:37 AM EST 04/13/2011 8:37 AM EST Randy Padilla MD POINT OF CARE TEST O RDERABLES Performing Organization Address [facility] Co de Phone Number [facility] * (ABNORMAL) BLOOD GAS 2 ARTERIAL (04/13/2011 8:29 AM EST) pH, Arterial 7.38 CERNER MILLENNIUM PCO2, Arterial 28(L) mmHg CERNE R MILLENNIUM PO2, Arterial 78(L) mmHg CERNER MILLENNIUM Bicarbonate, Arterial 15.7(L) mmol/L CERNER MILLENNIUM Base Excess, Arterial -9.5(L) mmol/L CERNER MILLENNIUM Hgb Blood Gas 10.2(L) gm/dL CERNER MILLENNIUM Comment: Total Hemoglobin (in gm/dL) ?Based on [facility] Hematology ranges: ?Age ?Reference Range Less than [...] al) mmol/L CERNER MILLENNIUM Comment: noted by cold molding press operator Please note: Patients with WBC >100,000 may have falsely elevated Potassium levels. Contact the Clinical Chemistry Laboratory if there are any questions. ICa Whole Blood 0.91(Criti juan manuel) mmol/L CERNER MILLENNIUM Comment: noted by cold molding press operator Reference Ranges: ?? < 19 yrs: [...] CARE TEST O RDERABLES Performing Organization Address [facility] de Phone Number CERNER MILLENNIUM * (ABNORMAL) Lactic acid, plasma (04/13/2011 5:47 AM EST) Lactic Acid 2.3(H) 0.5 - 2.2 mmol/L CERNER MILLENNIUM Blood specimen (specimen) 04/13/2011 5:47 AM EST 04/13/2011 5:55 AM EST Randy Padilla MD CHEMISTRY ORDERABLES Performing Organization Address [facility] Co de Phone Number CERNER MILLENNIUM * (ABNORMAL) BLOOD GAS 2 ARTERIAL (04/13/2011 5:42 AM EST) pH, Arterial 7.36 CERNER MILLENNIUM PCO2, Arterial 36 mmHg CERNE R MILLENNIUM PO2, Arterial 71(L) mmHg CERNER MILLENNIUM Bicarbonate, Arterial 19.9(L) mmol/L CERNER MILLENNIUM Base Excess, Arterial -5.6(L) mmol/L CERNER MILLENNIUM Hgb Blood Gas 12.1(L) gm/dL CERNER MILLENNIUM Comment: Total Hemoglobin (in gm/dL) ?Based on [facility] Hematology ranges: ?Age ?Reference Range Less than [...] MD HEMATOLOGY ORDERABLE S Performing Organization Address [facility] Phone Number DONNIE JUNIORIUM * APTT (04/13/2011 4:00 AM EST) Partial Thromboplastin Time 27 25 - 37 sec DONNIE MILLENNIUM Comment: Recommended therapeutic PTT range for full dose unfractionated heparin is 80-114 seconds. Blood specimen (specimen) 04/13/2011 4:00 AM EST 04/13/2011 4:10 AM EST Robyn Fowler MD HEMATOLOGY ORDERABLE S Performing Organization Address [facility] Phone Number DONNIE DIETZ * (ABNORMAL) Prothrombin Time (04/13/2011 4:00 AM EST) Prothrombin Time 14.8(H) 12.3 - 14.7 sec [facility] Comment: [facility] [place] [...] MD HEMATOLOGY ORDERABLE S Performing Organization Address [facility] Phone Number DONNIE DIETZ * (ABNORMAL) Basic Metabolic Panel (non-fasting) (04/13/2011 4:00 AM EST) Glucose 158 60 - 199 mg/dL [facility] MILLENNIUM Comment:Diabetes: >=200 mg/d L [...] Fowler MD CHEMISTRY ORDERABLES Performing Organization Address [facility] Co de Phone Number DONNIE [...] MD HEMATOLOGY ORDERABLE S Performing Organization Address [facility] de Phone Number DONNIE DIETZ * [...] Comment: Total Hemoglobin (in gm/dL) ?Based on [facility] Hematology ranges: ?Age ?Reference Range Less than [...] CARE TEST O RDERABLES Performing Organization Address [facility] Phone Number [facility] * Lactic acid, plasma (04/12/2011 11:55 PM EST) Lactic Acid 1.8 0.5 - 2.2 mmol/L [facility] Comment:result rechecked-llu Blood specimen (specimen) 04/12/2011 11:55 PM EST 04/13/2011 12:04 AM EST Randy Padilla MD CHEMISTRY ORDERABLES Performing Organization Address [facility] Phone Number [facility] * POCT GLUCOSE LAB USE ONLY (04/12/2011 8:41 PM EST) Glucose, POC 129 60 - 199 mg/dL [facility] Comment: Supplemental ranges: <110 mg/dL before meals <200 mg/dL all other times of the day Blood specimen (specimen) 04/12/2011 8:41 PM EST 04/12/2011 8:41 PM EST Randy Padilla MD POINT OF CARE TEST O RDERAJAZZY Performing Organization Address [facility] [facility] Phone Number [facility] * (ABNORMAL) BLOOD GAS 2 ARTERIAL (04/12/2011 8:05 PM EST) pH, Arterial 7.37 7.35 - 7.45 [facility] MILLENNIUM PCO2, Arterial 35 35 - 45 mmHg [facility] MILLENNIUM PO2, Arterial 72(L) 85 - 104 mmHg [facility] MILLENNIUM Bicarbonate, Arterial 19.6(L) 20.0 - 26.0 mmol/L CERNER MILLENNIUM Base Excess, Arterial -5.8(L) -3.0 - 3.0 mmol/L CERNER MILLENNIUM Hgb Blood Gas 12.0(L) 13.7 - 17.5 gm/dL CERNER MILLENNIUM Comment: Total Hemoglobin (in gm/dL) ?Based on [facility] Hematology ranges: ?Age ?Reference Range Less than [...] MD HEMATOLOGY ORDERABLE S Performing Organization Address [facility] Co de Phone Number CERNER MILLENNIUM * (ABNORMAL) Lactic acid, plasma (04/12/2011 5:25 PM EST) Lactic Acid 4.5(H) 0.5 - 2.2 mmol/L CERNER MILLENNIUM Blood specimen (specimen) 04/12/2011 5:25 PM EST 04/12/2011 5:40 PM EST Randy Padilla MD CHEMISTRY ORDERABLES Performing Organization Address [facility] Co de Phone Number CERNER [...] 7.29(Criti juan manuel) CERNER MILLENNIUM Comment:Noted by percussion instrument repairer. PCO2, Arterial 41 mmHg CERNE R MILLENNIUM PO2, Arterial 74(L) mmHg CERNER MILLENNIUM Bicarbonate, Arterial 19.6(L) mmol/L CERNER MILLENNIUM Base Excess, Arterial -6.9(L) mmol/L CERNER MILLENNIUM Hgb Blood Gas 13.0(L) gm/dL CERNER MILLENNIUM Comment: Total Hemoglobin (in gm/dL) ?Based on [facility] Hematology ranges: ?Age ?Reference Range Less than [...] MD POINT OF CARE TEST O BHASKAR [facility] * (ABNORMAL) POCT GLUCOSE LAB USE ONLY (04/12/2011 3:49 PM EST) Glucose, POC 217(H) 60 - 199 mg/dL [facility] Comment: Supplemental ranges: <110 mg/dL before meals <200 mg/dL all other times of the day Blood specimen (specimen) 04/12/2011 3:49 PM EST 04/12/2011 3:49 PM EST Randy Padilla MD POINT OF CARE TEST O BHASKAR Performing Organization Address [facility] Co de Phone Number [facility] * (ABNORMAL) BLOOD GAS ARTERIAL (04/12/2011 [...] Comment: Total Hemoglobin (in gm/dL) ?Based on [facility] Hematology ranges: ?Age ?Reference Range Less than [...] Padilla MD CHEMISTRY ORDERABLES Performing Organization Address [facility] Phone Number DONNIE JUNIORIUM * POCT GLUCOSE LAB USE ONLY (04/12/2011 2:57 PM EST) Glucose, POC 198 60 - 199 mg/dL [facility] Comment: Supplemental ranges: <110 mg/dL before meals <200 mg/dL all other times of the day Blood specimen (specimen) 04/12/2011 2:57 PM EST 04/12/2011 2:57 PM EST Randy Padilla MD POINT OF CARE TEST O RDERABLES Performing Organization Address [facility] Phone Number DONNIE HIGGINSENNIUM * KAUR HOLD (04/12/2011 2:55 PM EST) Kaur Hold Sample in lab. DONNIE HIGGINSENNIUM Blood specimen (specimen) 04/12/2011 2:55 PM EST 04/12/2011 3:30 PM EST Randy Padilla MD CHEMISTRY ORDERABLES Performing Organization Address [facility] Phone Number DONNIE HIGGINSENNIUM * (ABNORMAL) Hepatic Function Panel (04/12/2011 2:55 PM EST) Protein, Total 4.6(L) 6.4 - 8.3 gm/dL CERNER MILLENNIUM Albumin 2.7(L) 3.2 - 5.2 gm/dL CERNER MILLENNIUM Aspartate Aminotransferase 28 0 - 39 unit/L CERNER MILLENNIUM Alanine Aminotransferase 42 0 - 55 unit/L CERNER MILLENNIUM Alkaline Phosphatase 62 40 - 120 unit/L [facility] M[facility]UM Bilirubin, Total 0.3 0.2 - 1.3 mg/dL CERNER MILLENNIUM Bilirubin, Direct 0.1 0.0 - 0.3 mg/dL CERNER MILLENNIUM Blood specimen (specimen) 04/12/2011 2:55 PM EST 04/12/2011 3:22 PM EST Randy Padilla MD CHEMISTRY ORDERABLES Performing Organization Address [facility] Phone Number DONNIE JUNIORIUM * (ABNORMAL) Phosphorus (04/12/2011 2:55 PM EST) Phosphorus 4.6(H) 2.5 - 4.5 mg/dL DONNIE JUNIORIUM Blood specimen (specimen) 04/12/2011 2:55 PM EST 04/12/2011 3:22 PM EST Randy Padilla MD CHEMISTRY ORDERABLES Performing Organization Address [facility] Co sd Phone Number [facility] * (ABNORMAL) Magnesium (04/12/2011 2:55 PM EST) Magnesium 0.54(L) 0.69 - 1.07 mmol/L DONNIE JUNIORIUM Blood specimen (specimen) 04/12/2011 2:55 PM EST 04/12/2011 3:22 PM EST Randy Padilla MD CHEMISTRY ORDERABLES Performing Organization Address [facility] Phone Number DONNIE DIETZ * (ABNORMAL) Prothrombin Time (04/12/2011 2:55 PM EST) Prothrombin Time 15.8(H) 12.3 - 14.7 sec [facility] HIGGINSENNI[facility] Comment: [facility] [...] MD HEMATOLOGY ORDERABLE S Performing Organization Address City/[facility]/ZIP Co de Phone Number DONNIE HIGGINSCEVEC PharmaceuticalsIUM * APTT (04/12/2011 2:55 PM EST) Partial Thromboplastin Time 32 25 - 37 sec CERNER MILLENNIUM Comment: Recommended therapeutic PTT range for full dose unfractionated heparin is 80-114 seconds. Blood specimen (specimen) 04/12/2011 2:55 PM EST 04/12/2011 3:22 PM EST Randy Padilla MD HEMATOLOGY ORDERABLE S Performing Organization Address [facility] Co de Phone Number DONNIE [...] PM EST Randy Padilla MD CHEMISTRY ORDERABLES [facility] * (ABNORMAL) BLOOD GAS 2 ARTERIAL (04/12/2011 2:06 PM EST) pH, Arterial 7.21(Criti juan manuel) CERNER MILLENNIUM Comment:Noted by percussion instrument repairer. PCO2, Arterial 41 mmHg CERNE R MILLENNIUM PO2, Arterial 73(L) mmHg CERNER MILLENNIUM Bicarbonate, Arterial 16.1(L) mmol/L CERNER MILLENNIUM Base Excess, Arterial -11.7(L) mmol/L CERNER MILLENNIUM Hgb Blood Gas 12.4(L) gm/dL CERNER MILLENNIUM Comment: Total Hemoglobin (in gm/dL) ?Based on [facility] Hematology ranges: ?Age ?Reference Range Less than [...] 7.20(Criti juan manuel) CERNER MILLENNIUM Comment:Noted by percussion instrument repairer. PCO2, Arterial 48(H) mmHg CERNE R MILLENNIUM PO2, Arterial 109(H) mmHg CERNER MILLENNIUM Bicarbonate, Arterial 18.5(L) mmol/L CERNER MILLENNIUM Base Excess, Arterial -9.5(L) mmol/L CERNER MILLENNIUM Hgb Blood Gas 13.0(L) gm/dL CERNER MILLENNIUM Comment: Total Hemoglobin (in gm/dL) ?Based on [facility] Hematology ranges: ?Age ?Reference Range Less than [...] MD POINT OF CARE TEST O BHASKAR [facility] * (ABNORMAL) POCT GLUCOSE LAB USE ONLY (04/12/2011 12:34 PM EST) Glucose, POC 207(H) 60 - 199 mg/dL CERNER MILLENNIUM Comment: Supplemental ranges: <110 mg/dL before meals <200 mg/dL all other times of the day Blood specimen (specimen) 04/12/2011 12:34 PM EST 04/12/2011 12:34 PM EST Randy Padilla MD POINT OF CARE TEST O BHASKAR [facility] Bike HUDENNIUM * (ABNORMAL) BLOOD GAS 2 ARTERIAL (04/12/2011 11:27 AM EST) pH, Arterial 7.38 CERNER MILLENNIUM PCO2, Arterial 35 mmHg CERNE R MILLENNIUM PO2, Arterial 96 mmHg CERNER MILLENNIUM Bicarbonate, Arterial 20.6 mmol/L CERNER MILLENNIUM Base Excess, Arterial -4.5(L) mmol/L CERNER MILLENNIUM Hgb Blood Gas 15.2 gm/dL CERNER MILLENNIUM Comment: Total Hemoglobin (in gm/dL) ?Based on [facility] Hematology ranges: ?Age ?Reference Range Less than [...] CARE TEST O RDERAJAZZY Performing Organization Address [facility] de Phone Number CERMARTI HIGGINSENNIUM * [...] CARE TEST O RDERAJAZZY Performing Organization Address [facility] de Phone Number DONNIE JUNIORIUM * ANTIBODY SCREEN (04/12/2011 8:25 AM EST) Ab Screen Interp Negative CERNER MILLENNIUM Expires at [id number] on: [id number] CERNER MILLENNIUM Blood specimen (specimen) 04/12/2011 8:25 AM EST 04/12/2011 8:38 AM EST Erik Gill MD BLOOD BANK LAB ORDER BRIANNE Performing Organization Address [facility] de Phone Number DONNIE JUNIORIUM * ABO/RH TYPING (04/12/2011 8:25 AM EST) ABORH Type O Pos DONNIE DIETZ Blood specimen (specimen) 04/12/2011 8:25 AM EST 04/12/2011 8:38 AM EST Erik Gill MD BLOOD BANK LAB ORDER BRIANNE Performing Organization Address [facility] de Phone Number DONNIE DIETZ * Green Tube HOLD (04/12/2011 8:25 AM EST) Green Hold Sample in lab. DONNIE DIETZ Blood specimen (specimen) 04/12/2011 8:25 AM EST 04/12/2011 8:38 AM EST Erik Gill MD CHEMISTRY ORDERABLES Performing Organization Address [facility] de Phone Number DONNIE DIETZ * Lavender Tube HOLD (04/12/2011 8:25 AM EST) Lavender Hold Sample in lab. DONNIE DIETZ Blood specimen (specimen) 04/12/2011 8:25 AM EST 04/12/2011 8:38 AM EST Erik Gill MD HEMATOLOGY ORDERABLE S Performing Organization Address [facility] Phone Number DONNIE DIETZ * XR [...] (Bezet) 450 ms MUSE SYSTEM Calculated P [place] 33 degrees MUSE SYSTEM Calculated R [place] 50 degrees MUSE SYSTEM Calculated T [place] 66 degrees MUSE SYSTEM INTERPRETATION Sinus rhythm [...] THOMPSON ?Ordered By: ROBYN FOWLER ? MR#: [id number] ?LOC: ??ICUN ? /Sex: ?? 7 (75 years), ? Male ? PROCEDURE: Urine Culture ?SOURCE: U [facility] ? COLLECTED: 04/12/2011 07:26 ? STARTED: 04/12/2011 08:10 ? FINAL REPORT ? Final Report ? Verified: 06:39 ? No growth (Less than 1,000 cfu/ml). ? ____ CERNER MILLENNIUM Urine specimen obtained via straight catheter (specimen) 04/12/2011 7:26 AM EST 04/12/2011 8:10 AM EST Robyn Fowler MD MICROBIOLOGY - GENER AL ORDERABLES Performing Organization Address City/[facility] Co de Phone Number [facility] MILLENNIUM * (ABNORMAL) Urinalysis with microscopic (04/12/2011 [...] Urine Dipstick Clear Clear CERNER MILLENNIUM Specific [place] Urine Automated 1.021 1.002 - 1.030 CERNER [...] Fowler MD CHEMISTRY ORDERABLES Performing Organization Address [facility] de Phone Number [facility] * Troponin T (04/12/2011 7:15 AM EST) Troponin-T <0.03 <=0.03 ng/mL [facility] Comment: 0.03 ng/mL: Represents the 99th percentile upper reference limit for normals. >0.03 ng/mL: Elevated cardiac troponin T level indicative of myocardial damage. Diagnosis of acute, evolving or recent CO requires a typical rise and gradual fall [...] consensus document of the Joint Society of Cardiology/[place] College [employer] Committee for the redefinition of myocardial infarction. Journal of the [place] College [employer] 2000; 36: 959-969] Blood specimen (specimen) 04/12/2011 7:15 AM EST 04/12/2011 7:34 AM EST Robyn Fowler MD CHEMISTRY ORDERABLES Performing Organization Address [facility] de Phone Number [facility] * APTT (04/12/2011 7:15 AM EST) Partial Thromboplastin Time 28 25 - 37 sec [facility] Comment: Recommended therapeutic PTT range for full dose unfractionated heparin is 80-114 seconds. Blood specimen (specimen) 04/12/2011 7:15 AM EST 04/12/2011 7:34 AM EST Robyn Fowler MD HEMATOLOGY ORDERABLE S Performing Organization Address [facility] Co de Phone Number [facility] * Prothrombin Time (04/12/2011 7:15 AM EST) Prothrombin Time 13.2 12.3 - 14.7 sec [facility] Comment: [facility] Transfusion Committee Guidelines: INR less than 2.0, PTT less than OR equal to 43.5 seconds, or Fibrinogen greater than or equal to 100 mg/dl indicate adequate procoagulant activity for hemostasis in patients without underlying bleeding disorders. International Normalization Ratio 1.0 0.9 - 1.1 [facility] Blood specimen (specimen) 04/12/2011 7:15 AM EST 04/12/2011 7:34 AM EST Robyn Fowler MD HEMATOLOGY ORDERABLE S Performing Organization Address [facility] Co sd Phone Number [facility] * (ABNORMAL) Glucose, random (04/12/2011 7:15 AM EST) Glucose 299(H) 60 - 199 mg/dL [facility] Comment:Diabetes: >=200 mg/d L plus symptoms Blood specimen (specimen) 04/12/2011 7:15 AM EST 04/12/2011 7:34 AM EST Robyn Fowler MD CHEMISTRY ORDERABLES Performing Organization Address [facility] Phone Number [facility] * Creatinine, serum (04/12/2011 7:15 AM EST) Creatinine 0.98 0.80 - 1.50 mg/dL [facility] Est Glomerular Filtration Rate >60 >=60 [facility] Comment: The National Kidney Disease Education [...] Fowler MD CHEMISTRY ORDERABLES Performing Organization Address [facility] de Phone Number CERNER MILLENNIUM * BUN (04/12/2011 7:15 AM EST) Blood Urea Nitrogen 14 10 - 20 mg/dL CERNER MILLENNIUM Blood specimen (specimen) 04/12/2011 7:15 AM EST 04/12/2011 7:34 AM EST Robyn Fowler MD CHEMISTRY ORDERABLES Performing Organization Address [facility] de Phone Number CERNER MILLENNIUM * [...] Fowler MD CHEMISTRY ORDERABLES Performing Organization Address City/[facility] Co de Phone Number DONNIE [...] to 0-10.6 mL/hr), Intravenous, CONTINUOUS, Starting on [facility] 04/13/11 at 1045, Until Fri04/14/11 [...] Routine documented in this encounter Care Teams Property Coordinator Relationship Specialty Start Date End Date Arely Vickers MD PCP - General 04/12/11 09/15/16 documented as of this encounter
[2023-12-28 06:44] VITALS: PULSE 60; RESP 14; TEMP 36.2; O2SAT 99
--- NOTE | 2023-12-28 06:45 | RT.EKG_ITS ---
APPROVED REPORT Exam: Resting ECG Reason for Exam: Abd/back pain Patient Location: E HR:60 bpm ECG Measurements Heart Rate 60 AXIS AK 300 P -33 QRSd 111 QRS -10 QT 509 T 31 QTc 507 Conclusion Sinus rhythm Rate 60 1st degree HB Prolongued QTc 507 No STEMI
--- NOTE | 2023-12-28 07:00 | DI.US_ITS ---
Exam(s) US SCROTUM EXAM: US SCROTUM CLINICAL HISTORY: b/l testicular tenderness. TECHNIQUE: Scrotal ultrasound performed using grayscale, color-flow and spectral Doppler analysis. COMPARISON: No exams were available for comparison FINDINGS: RIGHT TESTICLE: 3.1 x 2.2 x 4.1 cm Echogenicity: Normal. Contour: Smooth. Mass: None seen. Tunica albuginea cysts. Microlithiasis: None. Hydrocele: Small. Scrotal awilda. Varicocele: Thrombosed varicocele. Hernia: No peristalsing bowel loop identified. Epididymis: Epididymal head cysts. Scrotum: Normal. LEFT TESTICLE: 3.8 x 2.5 x 4.4 cm Echogenicity: Normal. Contour: Smooth. Mass: None seen. Tunica albuginea cysts. Microlithiasis: None. Hydrocele: Small. Scrotal awilda. Varicocele: Thrombosed varicocele. Hernia: No peristalsing bowel loop identified. Epididymis: Normal. Scrotum: Normal. DOPPLER: Color: Symmetric and uniform, no hyperemia. Duplex: Bilateral testicular arterial waveforms visualized. IMPRESSION: Normal appearing bilateral testicles. Bilateral thrombosed varicoceles left greater than right. DATA REPOSITORY:
--- NOTE | 2023-12-28 07:03 | ED.GENADUL_ITS ---
Discharge Plan Disposition Patient Disposition: Home Condition: Stable Discharge Details Clinical Impression: Varicocele present on ultrasound of scrotum, CAD (coronary artery disease), Anemia, Ischemic cardiomyopathy, Type 2 diabetes mellitus, Atrial fibrillation, Chronic kidney disease, stage 4 (severe), HTN (hypertension), Pain in both testicles, Back pain Primary Care Provider: Maximino Lucero ED Provider: Shoshana Lawson Home Meds and New Rx's Prescriptions: New oxycodone 5 mg capsule 5 mg PO Q8H PRNQty: 5 0RF No Action lisinopril 5 mg tablet 5 mg PO DAILY amiodarone 200 mg tablet 200 mg PO DAILY Patient Comments: 11/27/20 started at [facility] for afib, pt was loaded on 400 mg BID for 7 days, RH tamsulosin 0.4 mg capsule 0.4 mg PO DAILY amlodipine 2.5 mg tablet 2.5 mg PO DAILY fluocinolone 0.01 % cream 1 applic topical BID magnesium oxide 400 mg magnesium capsule 400 mg PO BID Patient Comments: pt. reports he has been out of it nitroglycerin [Nitrostat] 0.4 mg tablet, sublingual 0.4 mg sublingual Q5 MIN PRN X3 PRN Rx Instructions: as a single dose; administer 5-10 minutes before situation known to precipitate angina attack apixaban 2.5 mg tablet 2.5 mg PO BID Patient Comments: 11/27/20 started at [facility] due to elevated creatinine 2.4 RH insulin aspart U-100 [Novolog U-100 Insulin aspart] 100 unit/mL solution 9 unit subcut TID alogliptin 6.25 mg tablet 6.25 mg PO DAILY calcitriol 0.25 mcg capsule 0.25 mcg PO DAILY cholecalciferol (vitamin D3) 25 mcg (1,000 unit) capsule 25 mcg PO DAILY insulin glargine [Lantus U-100 Insulin] 100 unit/mL solution 25 unit subcut DAILY lisinopril 10 mg tablet 10 mg PO DAILY atorvastatin [Lipitor] 40 MG tablet 40 mg PO QPM acetaminophen [Acetaminophen Extra Strength] 500 mg Tablet 1,000 mg PO Q8H PRN cyanocobalamin (vitamin B-12) 1,000 mcg Tablet 1,000 mcg PO DAILY furosemide 40 mg tablet 80 mg PO DAILY albuterol sulfate 90 mcg/actuation HFA aerosol inhaler 2 puff INHALATION ONCE PRN Patient Comments: INHALE TWO PUFFS BY MOUTH EVERY 4 TO 6 HOURS NEEDED metoprolol succinate 50 mg tablet extended release 24 hr 25 mg PO DAILY Qty: 0 0RF methocarbamol 500 mg tablet 500 mg PO TID Qty: 10 0RF Patient Comments: has not received prescription yet as was sent to [place] and they need at local pharmacy. Discharge Instructions Instructions: Hydrocele/Varicocele (DC) Additional Instructions: You were seen in the emergency department today for evaluation of ongoing testicular pain, abdominal pain, back pain, and had an ultrasound that showed partially thrombosed (clotted) varicose veins in your testicles/scrotum, likely causing your pain. These are not typically dangerous, but can cause discomfort, and we recommend wearing supportive underwear, some people even like to put a rolled up washcloth to support the scrotum, and use Tylenol, 650 mg every 6 hours. I have provided you with a small prescription for oxycodone, please use this at nighttime when your pain is severe, and you need to follow-up with the urology clinic in the next few days to discuss this visit and any symptoms that change, worsen, or persist. Thank you for allowing us to be part of your care. Referrals: David Bee MD [ [facility] STAFF PHYSICIAN] - 1 week HPI General Mode of arrival: ambulatory . Date/Time Provider Initiated Documentation: 12/28/23 06:34 . Limitations to Documentation: no limitations . Information obtained by: patient, family and old records reviewed . HPI Narrative: MDM: In brief, this is a 88-year-old male patient with a past medical history significant for CKD, hypertension, CAD, atrial fibrillation on Eliquis, and diabetes, as well as numerous recent visits for back and abdominal pain presenting today for reevaluation of same. Additionally, the patient is noted to have testicular tenderness on my physical examination. My differential includes but is not limited to orchitis, epididymitis, hydrocele, varicocele, testicular torsion. Considered urinary tract infection, pyelonephritis, nephrolithiasis. No evidence of systemic illness to significantly increase my concern for prostatitis, and there was no evidence of same on the CT scan obtained 4 days ago. I considered intra-abdominal abnormalities including bowel obstruction, constipation, diverticulitis, appendicitis, aortic disease, mesenteric ischemia, pancreatitis, cholecystitis, hepatitis. I considered musculoskeletal etiologies of back pain, including lumbosacral strain, sciatica, spinal stenosis. The patient has no red flag symptoms to suggest cauda equina syndrome, osteomyelitis, discitis, no recent trauma or injuries to suggest fracture, no chest pain at this time to suggest ACS. We will obtain laboratory studies to include CBC, CMP, troponin, lipase, urinalysis, and lactate. I will obtain an EKG. I thoroughly reviewed the CT scan obtained 4 days ago and given its general reassuring findings and the similarity in symptoms without change from prior evaluation I do not see any indication to repeat this advanced imaging at this time. However, given the testicular tenderness we will proceed with testicular ultrasound to evaluate for any abnormalities. I provided the patient with multimodal pain management to include Tylenol, lidocaine patches, and Dilaudid as needed. ED Course: I reviewed the patient's laboratory studies, which show resolving leukocytosis, 11 today down from 15 several days ago, and anemia to 11.7 slightly below values obtained over the last week, but no thrombocytopenia. Chemistry panel without electrolyte derangements, kidney function is at the patient's baseline for his stage IV CKD with a BUN of 40 and a creatinine of 3.7. No evidence of significant liver dysfunction, troponin is negative and the lipase is low. I interpreted the patient's EKG, which shows a sinus rhythm with a rate of 60, prolongation of his QTc as well as a first-degree heart block, but no evidence of ischemia or ectopy. I reviewed the patient's scrotal ultrasound as well as the radiologist interpretation, which shows partially thrombosed varicoceles, the likely cause of the patient's pain. I shared these findings with the patient, and referred him for urology evaluation in the outpatient environment. I recommended scrotal support and the patient feels that he has some underpants at home that would be suited to providing this level of elevation. Urinalysis was noninfectious and without hematuria. On reevaluation the patient reports improvement in his symptoms, and I provided him with a short course of oxycodone to be taken for breakthrough pain. I emphasized the importance of scheduled Tylenol. At this time, the patient has had a full medical evaluation and is safe for discharge to home. They are hemodynamically stable, ambulatory, and tolerating PO. They are understanding of the follow-up plan and return precautions. They left our facility without incident. Shoshana Lawson MD HPI: This is a 88-year-old male patient with a history of CKD, hypertension, CAD, atrial fibrillation on Eliquis, diabetes, presenting for evaluation of ongoing back, abdominal, and testicular pain. The patient reports that the symptoms started without inciting event 10 days ago, states that he feels like he was kicked in the balls and has the remnants of that pain ongoing. He has not noted any specific propagating factors other than palpation and movement, has been able to eat and drink normally, and has been seen in the emergency department several times for evaluation, as well as by his primary care provider. His most recent evaluation in the ED was 4 days ago, at which time he had reassuring laboratory studies and a CT of his abdomen that did not show any concerning findings or changes from his priors,, and specifically was significant for degenerative changes in the lower lumbar spine with spinal stenosis, a stable abdominal aortic aneurysm status post stenting with no evidence of endoleak, no evidence of bowel obstruction, and no concerning renal findings such as stone or hydronephrosis. He has been trialing Tylenol in the outpatient environment, without significant improvement in his symptoms. He reports that he has not had fevers or chills, has been utilizing prune juice and suppositories for management of constipation and did pass a small stool this morning. He is not experiencing dysuria or hematuria, as been eating and drinking normally without nausea. Exam: Gen: Awake and alert, appears quite uncomfortable HEENT: Non-icteric sclera Neck: Supple Lungs: No apparent respiratory distress, normal respiratory effort. CV: Appears well perfused, strong and symmetrical distal pulses Abdomen: Non-distended, soft, with some generalized tenderness throughout, no point tenderness, rigidity, rebound, or guarding : Normal external male genitalia, no scrotal skin changes, bilaterally tender testes with no palpable masses MSK: Moves 4 extremities without apparent limitation in ROM. The patient has no midline back pain, tenderness to palpation over the bilateral lumbar paraspinal and flank muscles, no CVA tenderness. Skin: Visualized skin without rashes, cyanosis. Neuro: Normal Gait, no obvious focal deficits or facial asymmetry. Full strength and sensation bilateral lower extremities. Speaks in full, clear sentences. Psych: Appropriate for situation. Related Data Home Medications ?Medication ?Instructions ?Recorded ?Confirmed atorvastatin 40 mg tablet (Lipitor) 40 mg PO QPM 09/20/17 12/28/23 fluocinolone 0.01 % topical cream 1 applic topical BID 01/14/20 12/28/23 magnesium oxide 400 mg PO BID 01/14/20 12/28/23 nitroglycerin 0.4 mg sublingual 0.4 mg sublingual Q5 MIN PRN X3 PRN 01/14/20 12/28/23 tablet (Nitrostat) acetaminophen 500 mg tablet 1,000 mg PO Q8H PRN 02/29/20 12/28/23 (Acetaminophen Extra Strength) cyanocobalamin (vitamin B-12) 1,000 mcg PO DAILY 03/01/20 12/28/23 1,000 mcg tablet amiodarone 200 mg tablet 200 mg PO DAILY 11/27/20 12/28/23 lisinopril 5 mg tablet 5 mg PO DAILY 11/27/20 12/28/23 tamsulosin 0.4 mg capsule 0.4 mg PO DAILY 11/27/20 12/28/23 apixaban 2.5 mg tablet 2.5 mg PO BID 05/31/21 12/28/23 insulin aspart U-100 100 unit/mL 9 unit subcut TID 05/31/21 12/28/23 subcutaneous solution (Novolog U-100 Insulin aspart) amlodipine 2.5 mg tablet 2.5 mg PO DAILY 07/11/22 12/28/23 furosemide 40 mg tablet 80 mg PO DAILY swelling 07/11/22 12/28/23 albuterol sulfate 90 mcg/actuation 2 puff inhalation ONCE PRN 05/17/23 12/28/23 aerosol inhaler alogliptin 6.25 mg tablet 6.25 mg PO DAILY 10/07/23 12/28/23 calcitriol 0.25 mcg capsule 0.25 mcg PO DAILY 10/07/23 12/28/23 cholecalciferol (vitamin D3) 25 25 mcg PO DAILY 10/07/23 12/28/23 mcg (1,000 unit) capsule insulin glargine 100 unit/mL 25 unit subcut DAILY 10/07/23 12/28/23 subcutaneous solution (Lantus U-100 Insulin) lisinopril 10 mg tablet 10 mg PO DAILY 10/07/23 12/28/23 metoprolol succinate 50 mg 25 mg (1/2 x 50 mg) PO DAILY #0 10/07/23 12/28/23 tablet,extended release 24 hr tabs methocarbamol 500 mg tablet 500 mg PO TID #10 tabs 12/23/23 12/28/23 oxycodone 5 mg capsule 5 mg PO Q8H PRN #5 caps 12/28/23 Previous Rx's ?Medication ?Instructions ?Recorded metoprolol succinate 50 mg 25 mg (1/2 x 50 mg) PO DAILY #0 10/07/23 tablet,extended release 24 hr tabs methocarbamol 500 mg tablet 500 mg PO TID #10 tabs 12/23/23 oxycodone 5 mg capsule 5 mg PO Q8H PRN #5 caps 12/28/23 Allergies Allergy/AdvReac Type Severity Reaction Status Date / Time adhesive Allergy Severe significant Verified 12/28/23 06:39 skin reaction, swelling, erythema, discomfort neomycin Allergy Unknown Verified 12/28/23 06:39 General Stated Complaint: GenMedical ASTON: 3 Course Vital Signs Vital signs: Vital Signs Temperature 36.2 C L 12/28/23 06:35 Pulse 65 12/28/23 06:35 Respiratory Rate 14 12/28/23 06:35 Blood Pressure 140/67 12/28/23 06:35 Pulse Oximetry 97 12/28/23 06:35 Temperature 36.2 C L 12/28/23 06:44 Temperature Source Skin 12/28/23 06:44 Pulse 60 12/28/23 06:44 Respiratory Rate 14 12/28/23 06:44 Respiratory Effort Normal 12/28/23 06:44 Respiratory Depth Normal 12/28/23 06:44 Respiratory Pattern Normal 12/28/23 06:44 Blood Pressure 140/67 12/28/23 06:35 Pulse Oximetry 99 12/28/23 06:44 Oxygen Delivery Method Room Air 12/28/23 06:44 Pain Level 10 12/28/23 06:44 Medical Decision Making Quality:SDOH Health Related Social Needs: No Data to Display PFSH All Active Problems (Updated 12/28/23 @ 09:45 by Shoshana Lawson MD) Pain in both testicles (Acute) Varicocele present on ultrasound of scrotum (Acute) Back pain (Acute) Back pain (Acute) Gout of left knee (Acute) Trigger thumb of left hand (Acute) Acute kidney injury superimposed on CKD (Acute) Severe sepsis (Acute) Chronic kidney disease, stage 4 (severe) (Acute) Medication management (Acute) amiodarone for afib EKG Q 12 Months RH HTN (hypertension) (Acute) CAD (coronary artery disease) (Chronic) Dermatitis (Acute) Atrial fibrillation (Chronic) Chest pain (Acute) Acute non-ST elevation myocardial infarction (NSTEMI) (Acute) Wound dehiscence, surgical (Acute) Type 2 diabetes mellitus (Chronic) Fatty liver (Acute) Chronic kidney disease, stage 3 (Chronic) Mass of salivary gland (Acute) Ischemic cardiomyopathy (Chronic) Skin lesion of scalp (Acute) Anemia (Chronic) Hearing impairment (Acute) Medical History HLD (hyperlipidemia) Former smoker Balanitis Atrial flutter Edema Cruz's disease Phimosis (10/17/15) Erectile dysfunction AAA (abdominal aortic aneurysm) Hypomagnesemia CHF (congestive heart failure) Renal insufficiency 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) Diverticulitis of large intestine with abscess Hypercholesterolemia Diabetes mellitus Myocardial infarct Phimosis Surgical History Status post colostomy takedown (~03/01/20) S/P left hemicolectomy (~07/19/18) H/O phimosis s/p repair History of heart artery stent S/P hernia repair History of endovascular stent graft for abdominal aortic aneurysm (AAA) Social History Smoking/Tobacco Use Status: Former Tobacco Use Quit Date: 01/03/17 Tobacco: How many years used: 60 Smoking risk assessment performed?: Yes Alcohol Intake: former Drug use: Never Substance use type: does not use Housing: house Do you feel safe at home: Yes Do you feel safe in your relationship?: Yes
[2023-12-28 07:37] LABS: Abs Immature Grans 0.07 10^3/uL (0.0-0.06); Absolute Eosinophil Count 0.22 10^3/uL (0.0-0.7); Absolute Monocyte Count 1.47 10^3/uL (0.1-0.8); Basophils % 0.3 %; Eosinophils % 1.9 %; HCT 37.1 % (40.0-50.0); HGB 11.7 g/dL (13.5-17.5); Immature Grans % 0.6 %; Lymphocytes % 15.7 %; MCH 29.2 pg (27.0-33.0); MCHC 31.5 % (32.0-36.0); MCV 93 fL (80-95); MPV 9.6 fL (8.0-11.0); Monocytes % 12.8 %; Neutrophils % 68.7 %; Platelet Count 357 10^3/uL (130-400); RBC 4.01 10^6/uL (4.36-5.78); RDW 12.3 % (11.8-14.1); RDW-SD 42.2 fL; WBC 11.47 10^3/uL (4.4-10.8)
[2023-12-28 07:41] LABS: Absolute Basophil Count 0.03 10^3/uL (0.0-0.2); Absolute Neutrophil Count 7.88 10^3/uL (1.2-6.7)
[2023-12-28] MEDS: Acetaminophen 500 MG TAB 1000 MG PO (07:42)
[2023-12-28] MEDS: Lidocaine 5% Patch 2 PATCH TP (07:42)
[2023-12-28 07:57] LABS: ALT 24 U/L (16-63); AST 23 U/L (15-37); Albumin 2.1 g/dL (3.4-5.0); Alkaline Phosphatase 142 U/L (46-116); Anion Gap 6.8 mmol/L (3-11); BUN 40 mg/dL (7-18); Bilirubin, Total 0.53 mg/dL (0.2-1.0); CO2 28.2 mmol/L (21.0-32.0); Calcium 9.3 mg/dL (8.5-10.1); Chloride 104 mmol/L (98-107); Estimated GFR 15.16 (mL/min/1.73m2); Glucose 107 mg/dL (74-106); Lipase 25 U/L (16-77); Magnesium 2.2 mg/dL (1.8-2.4); Potassium 4.3 mmol/L (3.5-5.1); Sodium 139 mmol/L (136-145); Total Protein 6.7 g/dL (6.4-8.2); Troponin I < 50 ng/L (< or =60)
[2023-12-28 07:59] LABS: CREATININE 3.7 mg/dL (0.70-1.30)
--- NOTE | 2023-12-28 08:40 | DI.VRAD_ITS ---
PROCEDURE INFORMATION: Exam: US Scrotum Exam date and time: 12/28/2023 7:50 AM Age: 88 years old Clinical indication: Scrotum pain; Patient HX: B/l testicular tenderness TECHNIQUE: Imaging protocol: Real-time ultrasound of the scrotum and contents with color Doppler and image documentation. COMPARISON: US RENAL 08/08/2021 9:24 AM FINDINGS: Right testicle: The right testicle measures 3.1 x 2.2 x 4.1 cm. Normal arterial early on venous blood flow present. Moderate hydrocele present. No solid mass. Multiple small cysts at the periphery of the testicle. Left testicle: The left testicle measures 3.8 x 2.5 x 4.4 cm. Normal arterial and venous blood flow present. No mass. Epididymides: Multiple small right epididymal head cysts Scrotum/soft tissues: Left-sided hydrocele present. Small scrotal pearls present bilaterally. Bilateral varicoceles possibly thrombosed IMPRESSION: Bilateral varicoceles possibly thrombosed Dictated and Authenticated by: Shu Gong MD. Ordering:YESENIA Shaikh MD
--- NOTE | 2023-12-28 08:56 | NUR.NOTE ---
Referral faxed to Urology for follow up care within 3 days for Partially Thrombosis Varicocele.
[2023-12-28] MEDS: HYDROmorphone 2 MG/ML SYR 0.5 MG IVP (09:32)
[2023-12-28 09:37] LABS: Bilirubin Negative (Negative); Blood Negative (Negative); Clarity Clear (Clear); Glucose Negative (Negative); Ketones Negative (Negative); Leukocyte Esterase Negative (Negative); Nitrite Negative (Negative); Specific Gravity 1.015 (1.005-1.025); Urobilinogen 0.2 mg/dL (Up to 0.2)
== END 2023-12-28 10:04 | disposition home or self-care (01) ==
PROVIDERS: Emergency Provider Emergency Medicine; PCP Student in an Organized Health Care Education/Training Program
DX: N50.82 Scrotal pain (principal); I86.1 Scrotal varices; I13.0 Hypertensive heart and chronic kidney disease with heart failure and stage 1 through stage 4 chronic kidney disease, or unspecified chronic kidney disease; E11.22 Type 2 diabetes mellitus with diabetic chronic kidney disease; N18.4 Chronic kidney disease, stage 4 (severe); I50.9 Heart failure, unspecified; I25.2 Old myocardial infarction; Z95.5 Presence of coronary angioplasty implant and graft; Z79.01 Long term (current) use of anticoagulants; Z79.4 Long term (current) use of insulin; Z87.891 Personal history of nicotine dependence
CPT/HCPCS: 36415; 80053; 83690; 93005; 96374; 99285; 76870; 81003; 83605; 83735; 84484; 85025; 93010; 99284; J1170

== ENCOUNTER 2024-01-08 01:59 | Emergency (ER) | payer MEDICARE, SELFPAY ==
[2024-01-08] VITALS (34 sets, daily range): BP systolic 102–168; BP diastolic 43–86; PULSE 40–60; RESP 9–31; O2SAT 87–98
--- NOTE | 2024-01-08 01:45 | DI.RAD_ITS ---
Exam(s) XR PORTABLE CHEST AP EXAM: XR PORTABLE CHEST AP CLINICAL HISTORY: hypoglycemia, infectious workup. TECHNIQUE: 2D digital imaging was performed. COMPARISON: Chest x-ray 12/24/2023 FINDINGS: Single AP portable view. Cardiomegaly again noted. Mediastinum not widened. Lungs are clear. No infiltrates nor obvious pleural effusions. IMPRESSION: No acute pulmonary findings on this single AP portable view of the chest. Cardiomegaly again noted. No CHF. DATA REPOSITORY: RADIATION DOSE DELIVERED:
--- NOTE | 2024-01-08 01:45 | RT.EKG_ITS ---
APPROVED REPORT Exam: Resting ECG Reason for Exam: high bp Patient Location: E HR:47 bpm ECG Measurements Heart Rate 47 AXIS ND 320 P -17 QRSd 126 QRS -11 QT 579 T 33 QTc 513 Conclusion Sinus bradycardia...rate< 60 Prolonged ND interval...ND >230, V-rate 30- 49 Nonspecific intraventricular conduction delay...QRSd >115mS, not LBBB/RBBB Prolonged QT interval...QTc >500mS No ST segment or T wave abnormalitites to suggest occlusive OH. Aside from rate now high 40's, similar to prior 12/28/23
[2024-01-08 02:14] LABS: BE (Venous) 3 mmol/L (-2-3); HCO3 (Venous) 28 mmol/L (23-28); Lactate 1.2 mmol/L (0.6-1.4); O2 Sat (Venous) 89 %; TCO2 (Venous) 25 mmol/L (24-29); pCO2 (Venous) 46 mmHg (41-51); pH (Venous) 7.39 (7.31-7.41); pO2 (Venous) 55 mmHg
--- NOTE | 2024-01-08 02:16 | W.ED.GENAD ---
Discharge Plan Disposition Patient Disposition: Transfer-Acute Inpatient Care Specific Acute Inpt Facility: [facility] Condition: Critical Discharge Details Clinical Impression: Bradycardia, CAD (coronary artery disease), Hypoglycemia, CKD (chronic kidney disease), Insulin dependent type 2 diabetes mellitus Primary Care Provider: Maximino Lucero ED Provider: Francy Cole Home Meds and New Rx's Prescriptions: No Action lisinopril 5 mg tablet 5 mg PO DAILY amiodarone 200 mg tablet 200 mg PO DAILY Patient Comments: 11/27/20 [place] [facility] [place] pt was loaded on 400 mg BID for 7 days, RH tamsulosin 0.4 mg capsule 0.4 mg PO DAILY amlodipine 2.5 mg tablet 2.5 mg PO DAILY fluocinolone 0.01 % cream 1 applic topical BID magnesium oxide 400 mg magnesium capsule 400 mg PO BID Patient Comments: pt. reports he has been out of it nitroglycerin [Nitrostat] 0.4 mg tablet, sublingual 0.4 mg sublingual Q5 MIN PRN X3 PRN Rx Instructions: as a single dose; administer 5-10 minutes before situation known to precipitate angina attack apixaban 2.5 mg tablet 2.5 mg PO BID Patient Comments: 11/27/20 [place] [facility] [place] to elevated creatinine 2.4 RH insulin aspart U-100 [Novolog U-100 Insulin aspart] 100 unit/mL solution 9 unit subcut TID alogliptin 6.25 mg tablet 6.25 mg PO DAILY calcitriol 0.25 mcg capsule 0.25 mcg PO DAILY cholecalciferol (vitamin D3) 25 mcg (1,000 unit) capsule 25 mcg PO DAILY insulin glargine [Lantus U-100 Insulin] 100 unit/mL solution 25 unit subcut DAILY lisinopril 10 mg tablet 10 mg PO DAILY atorvastatin [Lipitor] 40 MG tablet 40 mg PO QPM acetaminophen [Acetaminophen Extra Strength] 500 mg Tablet 1,000 mg PO Q8H PRN cyanocobalamin (vitamin B-12) 1,000 mcg Tablet 1,000 mcg PO DAILY furosemide 40 mg tablet 80 mg PO DAILY albuterol sulfate 90 mcg/actuation HFA aerosol inhaler 2 puff INHALATION ONCE PRN Patient Comments: INHALE TWO PUFFS BY MOUTH EVERY 4 TO 6 HOURS NEEDED metoprolol succinate 50 mg tablet extended release 24 hr 25 mg PO DAILY Qty: 0 0RF methocarbamol 500 mg tablet 500 mg PO TID Qty: 10 0RF Patient Comments: has not received prescription yet as was sent to [place] and they need at local pharmacy. oxycodone 5 mg capsule 5 mg PO Q8H PRNQty: 5 0RF tramadol 50 mg tablet See Rx Instructions .ROUTE .COMPLEX Patient Comments: TAKE ONE-HALF TO ONE TABLET BY MOUTH THREE TIMES A DAY Rx Instructions: take one-half to one tablet by mouth three times a day HPI General Mode of arrival: EMS. Date/Time Provider Initiated Documentation: 01/08/24 02:06. Limitations to Documentation: no limitations. Information obtained by: patient, family and EMS. HPI Narrative: 88yo M with hx AAA with endovascular stent graft, aortic stenosis, TX with stent, diabetes, CKD4, CHF, ischemic cardiomyopathy, scrotal varicocele, presents via EMS for hypoglycemia. Partner noted him to be diaphoretic and difficutl to arouse in bed and so called 911; on EMS arrival fingerstick blood glucose 25. Given 250ml D10 from EMS with improvement in blood glucose to 200's just prior to arrival. Patient became more alert after dextrose administered. Bradycardiac to 40's for EMS, largely normotensive though HR occasionally dips to high 30's at which point his SBP is in the 90's. On arrival patient reports feeling intermittently lightheaded though states this is improving. No chest pain or shortness of breath at any point. No nasuea, vomiting, or abdominal pain. Started on tramadol recently for pain from scrotal varicocele, otherwise no medication changes. Took his insulin, alogliptin, and metoprolol as prescribed with no additional doses, confirmed by patient and partner at bedside. Eating and drinking normally. Otherwise in his usual state of health with no fevers, chills, rash, dysuria, hematuria, or other concerns. Related Data Home Medications ?Medication ?Instructions ?Recorded ?Confirmed atorvastatin 40 mg tablet (Lipitor) 40 mg PO QPM 09/20/17 01/08/24 fluocinolone 0.01 % topical cream 1 applic topical BID 01/14/20 01/08/24 magnesium oxide 400 mg PO BID 01/14/20 01/08/24 nitroglycerin 0.4 mg sublingual 0.4 mg sublingual Q5 MIN PRN X3 PRN 01/14/20 01/08/24 tablet (Nitrostat) acetaminophen 500 mg tablet 1,000 mg PO Q8H PRN 02/29/20 01/08/24 (Acetaminophen Extra Strength) cyanocobalamin (vitamin B-12) 1,000 mcg PO DAILY 03/01/20 01/08/24 1,000 mcg tablet amiodarone 200 mg tablet 200 mg PO DAILY 11/27/20 01/08/24 lisinopril 5 mg tablet 5 mg PO DAILY 11/27/20 01/08/24 tamsulosin 0.4 mg capsule 0.4 mg PO DAILY 11/27/20 01/08/24 apixaban 2.5 mg tablet 2.5 mg PO BID 05/31/21 01/08/24 insulin aspart U-100 100 unit/mL 9 unit subcut TID 05/31/21 01/08/24 subcutaneous solution (Novolog U-100 Insulin aspart) amlodipine 2.5 mg tablet 2.5 mg PO DAILY 07/11/22 01/08/24 furosemide 40 mg tablet 80 mg PO DAILY swelling 07/11/22 01/08/24 albuterol sulfate 90 mcg/actuation 2 puff inhalation ONCE PRN 05/17/23 01/08/24 aerosol inhaler alogliptin 6.25 mg tablet 6.25 mg PO DAILY 10/07/23 01/08/24 calcitriol 0.25 mcg capsule 0.25 mcg PO DAILY 10/07/23 01/08/24 cholecalciferol (vitamin D3) 25 25 mcg PO DAILY 10/07/23 01/08/24 mcg (1,000 unit) capsule insulin glargine 100 unit/mL 25 unit subcut DAILY 10/07/23 01/08/24 subcutaneous solution (Lantus U-100 Insulin) lisinopril 10 mg tablet 10 mg PO DAILY 10/07/23 01/08/24 metoprolol succinate 50 mg 25 mg (1/2 x 50 mg) PO DAILY #0 10/07/23 01/08/24 tablet,extended release 24 hr tabs methocarbamol 500 mg tablet 500 mg PO TID #10 tabs 12/23/23 01/08/24 oxycodone 5 mg capsule 5 mg PO Q8H PRN #5 caps 12/28/23 01/08/24 tramadol 50 mg tablet See Rx Instructions .Route .COMPLEX 01/08/24 01/08/24 Previous Rx's ?Medication ?Instructions ?Recorded metoprolol succinate 50 mg 25 mg (1/2 x 50 mg) PO DAILY #0 10/07/23 tablet,extended release 24 hr tabs methocarbamol 500 mg tablet 500 mg PO TID #10 tabs 12/23/23 oxycodone 5 mg capsule 5 mg PO Q8H PRN #5 caps 12/28/23 Allergies Allergy/AdvReac Type Severity Reaction Status Date / Time adhesive Allergy Severe significant Verified 01/08/24 02:04 skin reaction, swelling, erythema, discomfort neomycin Allergy Unknown Verified 01/08/24 02:04 General Stated Complaint: GenMedical ASTON: 3 Review of Systems Narrative: see HPI Exam Narrative Exam Narrative: General: Alert, in no acute distress. Head: Normocephalic, atraumatic Neck: Trachea midline, ?Neck supple. ENT: ?MMM.? No oropharygeal lesions or exudate. Cardiac: ?Bradycardiac, regular Resp: No respiratory distress. CTAB. Abd: ?Soft, non-distended, nontender : ?No suprapubic tenderness. No CVA tenderness. Left hemiscrotum with varicocele, TTP. Extremities: ?No deformities.? No peripheral edema. Neurologic: GCS 15. ? Moves all extremities freely against gravity Course Vital Signs Vital signs: Vital Signs Pulse 48 L 01/08/24 01:58 Respiratory Rate 22 01/08/24 01:58 Blood Pressure 105/43 L 01/08/24 01:58 Pulse Oximetry 94 01/08/24 01:58 Pulse 48 L 01/08/24 01:58 Respiratory Rate 22 01/08/24 01:58 Respiratory Effort Normal, Non-Labored 01/08/24 02:04 Blood Pressure 105/43 L 01/08/24 01:58 Blood Pressure Position Sitting 01/08/24 01:58 Pulse Oximetry 94 01/08/24 01:58 Oxygen Delivery Method Room Air 01/08/24 01:58 Oxygen Flow Rate 0 01/08/24 01:58 Lab/Test Results Lab/Test Results: 01/08/24 01:56 Blood Blood Culture - Pending 01/08/24 01:56 Blood Blood Culture - Pending Laboratory Tests Range/Units 01/08/24 02:08 VBG pH (7.31-7.41) 7.39 VBG pCO2 (41-51) mmHg 46 VBG pO2 mmHg 55 VBG HCO3 (23-28) mmol/L 28 VBG Total CO2 (24-29) mmol/L 25 VBG O2 Saturation % 89 VBG Base Excess (-2-3) mmol/L 3 VBG Lactate (0.6-1.4) mmol/L 1.2 Medical Decision Making 88yo M with hx AAA with endovascular stent graft, aortic stenosis, TX with stent, diabetes, CKD4, CHF, ischemic cardiomyopathy, scrotal varicocele, presents via EMS for hypoglycemia. Partner noted him to be diaphoretic and difficutl to arouse in bed and so called 911; on EMS arrival fingerstick blood glucose 25. Given 250ml D10 from EMS with improvement in blood glucose to 200's just prior to arrival. Bradycardiac to 40's for EMS, largely normotensive though HR occasionally dips to high 30's at which point his SBP is in the 90's. On arrival patient reports feeling intermittently lightheaded though states this is improving. Took his insulin, alogliptin, and metoprolol as prescribed with no additional doses, confirmed by patient and partner at bedside. Eating and drinking normally. Alert on arrrival with HR in 40's, normotensive, blood glucose 200s. Benign physical exam. Broad differential for hypoglycemia and bradycardia including medication adverse effect (insulin, beta juma, tramadol), critical illness, renal failure, hepatic failure. Pt denies any intentional or inadvertent medication overdose, does state his helps him with his medications. Upon arrival of to bedside, confirmed medication is being taken as prescribed. No chest pain or shortness of breath to suggest acute cardiac pathology/ACS/worsening CHF, no abdominal or back pain to suggest ruptured AAA, no infectious symptoms and no clear focus on infection on exam. Given age and risk factors, will evaluate broadly, closely monitor for recurrent hypglycemia, send blood and urine cultures. Would not treat empirically for sepsis at this time. If acutely decompensates would consider treating as possible beta juma overdose with IV glucagon. Discussed code status with patient, he states DNR/DNI consistent with prior records here. EKG on arrival sinus bradycardia with 1st degree heart block, rate in high 40's, prolonged QT (QTc ~510), no ST segment or T wave abnormalities to suggest occlusive TX. Aside from rate now high 40's, similar to prior 12/28/23. CXR independently reviewed, no focal pneumonia or pneumothorax on my view, agree with radiology read below. Labs reviewed as below, CBC with mild leukocytosis at 14 (nonspecfiic) and anemia with Hg unchanged from 12/28/23, CMP with elevated Cr at 4.1 (baseline appears to be ~3.5 on reccord review, most recently 3.7 on 12/28/23) and blood glucose 116 (decreasing), Mg normal, VBG normal, lactate normal, BNP reassuring, initial troponin negative, serum toxicology negative. UA not infected. Q1 hour fingersticks trended; 106, 79 (given PO), 88. HR remains persistently in 40's with occasional drops to mid-high 30's lasting less than a minute; patient symptomatic with this. No beds available at [facility]; [place] [facility] [place] on medicine service under Dr. López who requested we also consult with cardiology prior to transfer. Discussed with Dr. Palmer [facility]; advised holding tramadol and metoprolol, echo once arrives at [facility] [place]. No indication for additional medications or pacing at this time. Transferred via [facility]. Imaging Data Radiologic Study: Imaging: X-Ray Radiologist's impression: IMPRESSION: Enlarged cardiac silhouette Lab Data Lab results reviewed: Yes I reviewed the patient's lab results. Labs: 01/08/24 04:10 Urine - Voided Urine Culture - Pending 01/08/24 03:00 Blood Blood Culture - Pending 01/08/24 02:21 Blood Blood Culture - Pending Laboratory Tests Range/Units 01/08/24 01/08/24 02:03 02:08 WBC (4.4-10.8) 10^3/uL 13.96 H RBC (4.36-5.78) 10^6/uL 3.98 L Hgb (13.5-17.5) g/dL 11.6 L Hct (40.0-50.0) % 36.9 L MCV (80-95) fL 93 MCH (27.0-33.0) pg 29.1 MCHC (32.0-36.0) % 31.4 L RDW (11.8-14.1) % 13.0 Plt Count (130-400) 10^3/uL 286 MPV (8.0-11.0) fL 9.3 Immature Gran % % 1.0 Neutrophils % % 76.1 Lymphocytes % % 10.6 Monocytes % % 11.0 Eosinophils % % 1.0 Basophils % % 0.3 Nucleated RBC % (0.0-0.3) % 0.0 Absolute Neutrophils (1.2-6.7) 10^3/uL 10.62 H Absolute Lymphocytes (1.2-3.4) 10^3/uL 1.48 Absolute Monocytes (0.1-0.8) 10^3/uL 1.54 H Absolute Eosinophils (0.0-0.7) 10^3/uL 0.14 Absolute Basophils (0.0-0.2) 10^3/uL 0.04 PT (9.1-11.1) sec 11.7 H INR (0.9-1.1) 1.2 H APTT (23.6-32.8) sec 33.6 H VBG pH (7.31-7.41) 7.39 VBG pCO2 (41-51) mmHg 46 VBG pO2 mmHg 55 VBG HCO3 (23-28) mmol/L 28 VBG Total CO2 (24-29) mmol/L 25 VBG O2 Saturation % 89 VBG Base Excess (-2-3) mmol/L 3 VBG Lactate (0.6-1.4) mmol/L 1.2 Sodium (136-145) mmol/L 139 Potassium (3.5-5.1) mmol/L 3.5 Chloride (98-107) mmol/L 105 Carbon Dioxide (21.0-32.0) mmol/L 28.4 Anion Gap (3-11) mmol/L 5.6 BUN (7-18) mg/dL 30 H Creatinine (0.70-1.30) mg/dL 4.1 H* Est GFR (CKD-EPI 2020) (mL/min/1.73m2) 13.40 Glucose (74-106) mg/dL 116 H Calcium (8.5-10.1) mg/dL 9.3 Magnesium (1.8-2.4) mg/dL 2.1 Total Bilirubin (0.2-1.0) mg/dL 0.42 AST (15-37) U/L 21 ALT (16-63) U/L 20 Alkaline Phosphatase (46-116) U/L 130 H Troponin I High Sens Cancelled < 50 NT-Pro-B Natriuret Pep (<300) pg/mL 316 H Total Protein (6.4-8.2) g/dL 7.0 Albumin (3.4-5.0) g/dL 2.3 L Salicylates (<2.8) mg/dL < 2.8 Acetaminophen (10-30) ug/mL < 2 Ethyl Alcohol (<10) mg/dL < 3.0 Quality:[facility] Health Related Social Needs: No Data to Display Critical Care Time Critical Care Time Critical Care Time: Yes Total Critical Care Time: 32 Attestation: Due to a high probability of clinically significant, life threatening deterioration, the patient required my highest level of preparedness to intervene emergently and I personally spent this critical care time directly and personally managing the patient. This critical care time included obtaining a history; examining the patient; pulse oximetry; ordering and review of studies; arranging urgent treatment with development of a management plan; evaluation of patient's response to treatment; frequent reassessment; and, discussions with other providers. This critical care time was performed to assess and manage the high probability of imminent, life-threatening deterioration that could result in multi-organ failure. It was exclusive of separately billable procedures PFSH All Active Problems (Updated 01/08/24 @ 05:28 by Francy Cole MD) Insulin dependent type 2 diabetes mellitus (Acute) CKD (chronic kidney disease) (Chronic) Hypoglycemia (Acute) CAD (coronary artery disease) (Chronic) Bradycardia (Acute) Pain in both testicles (Acute) Varicocele present on ultrasound of scrotum (Acute) Back pain (Acute) Back pain (Acute) Gout of left knee (Acute) Trigger thumb of left hand (Acute) Acute kidney injury superimposed on CKD (Acute) Severe sepsis (Acute) Chronic kidney disease, stage 4 (severe) (Acute) Medication management (Acute) amiodarone for afib EKG Q 12 Months RH HTN (hypertension) (Acute) CAD (coronary artery disease) (Chronic) Dermatitis (Acute) Atrial fibrillation (Chronic) Chest pain (Acute) Acute non-ST elevation myocardial infarction (NSTEMI) (Acute) Wound dehiscence, surgical (Acute) Type 2 diabetes mellitus (Chronic) Fatty liver (Acute) Chronic kidney disease, stage 3 (Chronic) Mass of salivary gland (Acute) Ischemic cardiomyopathy (Chronic) Skin lesion of scalp (Acute) Anemia (Chronic) Hearing impairment (Acute) Medical History HLD (hyperlipidemia) Former smoker Balanitis Atrial flutter Edema Cruz's disease Phimosis (10/17/15) Erectile dysfunction AAA (abdominal aortic aneurysm) Hypomagnesemia CHF (congestive heart failure) Renal insufficiency 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) Diverticulitis of large intestine with abscess Hypercholesterolemia Diabetes mellitus Myocardial infarct Phimosis Surgical History Status post colostomy takedown (~03/01/20) S/P left hemicolectomy (~07/19/18) H/O phimosis s/p repair History of heart artery stent S/P hernia repair History of endovascular stent graft for abdominal aortic aneurysm (AAA) Social History Smoking/Tobacco Use Status: Former Tobacco Use Quit Date: 01/03/17 Tobacco: How many years used: 60 Smoking risk assessment performed?: Yes Alcohol Intake: former Drug use: Never Substance use type: does not use Housing: house Do you feel safe at home: Yes Do you feel safe in your relationship?: Yes
[2024-01-08 02:35] LABS: INR 1.2 (0.9-1.1); PTT Activated 33.6 sec (23.6-32.8); Prothrombin Time 11.7 sec (9.1-11.1)
[2024-01-08 02:38] LABS: Abs Immature Grans 0.14 10^3/uL (0.0-0.06); Absolute Basophil Count 0.04 10^3/uL (0.0-0.2); Absolute Eosinophil Count 0.14 10^3/uL (0.0-0.7); Absolute Lymphocyte Count 1.48 10^3/uL (1.2-3.4); Basophils % 0.3 %; HCT 36.9 % (40.0-50.0); HGB 11.6 g/dL (13.5-17.5); Lymphocytes % 10.6 %; MCH 29.1 pg (27.0-33.0); MCHC 31.4 % (32.0-36.0); MCV 93 fL (80-95); MPV 9.3 fL (8.0-11.0); Neutrophils % 76.1 %; Platelet Count 286 10^3/uL (130-400); RBC 3.98 10^6/uL (4.36-5.78); RDW-SD 44.4 fL; WBC 13.96 10^3/uL (4.4-10.8)
--- NOTE | 2024-01-08 02:42 | DI.VRAD_ITS ---
PROCEDURE INFORMATION: Exam: XR Chest Exam date and time: 01/08/2024 2:14 AM Age: 88 years old Clinical indication: Other: Hypoglycemia, infectious workup TECHNIQUE: Imaging protocol: Radiologic exam of the chest. Views: 1 view. COMPARISON: CR XR CHEST 2V PA LATERAL 12/24/2023 9:50 AM FINDINGS: Lungs: No focal consolidation seen. Pleural spaces: No large pleural effusion seen. Heart/Mediastinum: Enlarged cardiac silhouette. Vasculature: Arterial calcifications. Bones/joints: No acute abnormality. IMPRESSION: Enlarged cardiac silhouette. Dictated and Authenticated by: Jade Velasco MD. Ordering:MARC Sen MD
[2024-01-08 02:43] LABS: ALT 20 U/L (16-63); AST 21 U/L (15-37); Albumin 2.3 g/dL (3.4-5.0); Alkaline Phosphatase 130 U/L (46-116); Anion Gap 5.6 mmol/L (3-11); BUN 30 mg/dL (7-18); Bilirubin, Total 0.42 mg/dL (0.2-1.0); CO2 28.4 mmol/L (21.0-32.0); Calcium 9.3 mg/dL (8.5-10.1); Chloride 105 mmol/L (98-107); Glucose 116 mg/dL (74-106); Potassium 3.5 mmol/L (3.5-5.1); Sodium 139 mmol/L (136-145); Troponin I < 50 ng/L (< or =60)
[2024-01-08 02:49] LABS: Magnesium 2.1 mg/dL (1.8-2.4)
[2024-01-08 02:51] LABS: CREATININE 4.1 mg/dL (0.70-1.30); ETHANOL BLOOD < 3.0 mg/dL (<10)
[2024-01-08 03:00] LABS: Absolute Monocyte Count 1.54 10^3/uL (0.1-0.8); Absolute Neutrophil Count 10.62 10^3/uL (1.2-6.7)
[2024-01-08 03:01] LABS: NT-proBNP 316 pg/mL (<300)
[2024-01-08 03:20] LABS: Acetaminophen < 2 ug/mL (10-30); Salicylate < 2.8 mg/dL (<2.8)
[2024-01-08 04:31] LABS: Bilirubin Negative (Negative); Blood Negative (Negative); Clarity Clear (Clear); Glucose Negative (Negative); Ketones Negative (Negative); Leukocyte Esterase Negative (Negative); Nitrite Negative (Negative); Specific Gravity 1.015 (1.005-1.025); Urobilinogen 0.2 mg/dL (Up to 0.2)
[2024-01-08 05:50] LABS: Troponin I < 50 ng/L (< or =60)
== END 2024-01-08 05:40 | disposition short-term general hospital (02) ==
PROVIDERS: Emergency Provider Student in an Organized Health Care Education/Training Program; PCP Student in an Organized Health Care Education/Training Program
DX: R00.1 Bradycardia, unspecified (principal); I25.10 Atherosclerotic heart disease of native coronary artery without angina pectoris; R42 Dizziness and giddiness; E11.9 Type 2 diabetes mellitus without complications; E16.2 Hypoglycemia, unspecified; N18.9 Chronic kidney disease, unspecified; Z79.4 Long term (current) use of insulin
CPT/HCPCS: 36415; 36416; 80053; 82805; 82962; 87040; 93005; 99291; 71045; 80320; 80329; 81003; 83605; 83735; 83880; 84484; 85025; 85610; 85730; 87086; 93010

== ENCOUNTER → 2024-01-21 07:52 | Outpatient (BNVA) | payer MEDICARE, SELFPAY | PROVIDERS: PCP Student in an Organized Health Care Education/Training Program; Referring Provider Student in an Organized Health Care Education/Training Program; Visit Provider Nurse Practitioner Gerontology | DX: I86.1 Scrotal varices (principal); R10.31 Right lower quadrant pain; R10.32 Left lower quadrant pain | CPT/HCPCS: 99215 ==

== ENCOUNTER 2024-01-25 13:35 | Emergency (ER) | payer MEDICARE, SELFPAY ==
[2024-01-25 13:40] VITALS: BP 128/77; PULSE 56; RESP 16; TEMP 36.6; O2SAT 98
--- OUTSIDE RECORDS SUMMARY | 2024-01-25 13:40 | XMS_ITS | Encounter Summary ---
Author Organization [facility] Address [address] [place] [address] Care Team Providers Care Flight Controls Engineer Name Role Phone Rolando Moise MD Primary Care Provider [phone] Encounter Details Date Type Department Care Team (Late st Contact Info) Description 08/17/2021 Lab Requisition [facility] Pathology & Laboratory Medicine - [address] [phone] Outr Resulting Lab, Provider Social History Tobacco [...] 19 - 88 pg/mL 08/20/2021 11:29 EDT [facility] Blood VENOUS BLOOD / Unknown 08/16/2021 13:50 EDT 08/17/2021 16:29 EDT Provider Outr Resulting Lab CHEMISTRY & BLOOD GAS ORDERABLES [facility] [address] [place] [address] documented in this encounter Visit Diagnoses Not on filedocumented in this encounter Care Teams Flight Controls Engineer Relationship Specialty Start Date End Date Rolando Moise MD [address] [place] [address] PCP - General 10/30/16 documented as of this encounter
--- OUTSIDE RECORDS SUMMARY | 2024-01-25 13:40 | XMS_ITS | Clinical Summary ---
Author Organization [facility] Address [address] [place] [address] Care Team Providers Care Extrusion Technician Name Role Phone Rolando Moise MD Primary Care Provider [phone] Social History Tobacco Use Types Packs/Day Years [...] 1996 Fall Risk Screening 2001 COVID-19 Vaccine (2022-24 season) 2024 Care Teams Extrusion Technician Relationship Specialty Start Date End Date Rolando Moise MD [address] [place] [address] PCP - General 10/30/16
--- OUTSIDE RECORDS SUMMARY | 2024-01-25 13:40 | XMS_ITS | Encounter Summary ---
Author Organization [facility] Address [address] [place] [address] Care Team Providers Care Training And Development Project Leader Name Role Phone Rolando Moise MD Primary Care Provider [phone] Encounter Details Date Type Department Care Team (Late st Contact Info) Description 03/06/2023 Lab Requisition [facility] Pathology & Laboratory Medicine - [address] [phone] Outr Resulting Lab, Provider Social History Tobacco [...] 19 - 88 pg/mL 03/07/2023 18:47 EDT [facility] Blood VENOUS BLOOD / Unknown 03/06/2023 15:45 EDT 03/07/2023 18:28 EDT Provider Outr Resulting Lab CHEMISTRY & BLOOD GAS ORDERABLES [facility] [address] [place] [address] documented in this encounter Visit Diagnoses Not on filedocumented in this encounter Care Teams Training And Development Project Leader Relationship Specialty Start Date End Date Rolando Moise MD [address] [place] [address] PCP - General 10/30/16 documented as of this encounter
--- OUTSIDE RECORDS SUMMARY | 2024-01-25 13:40 | XMS_ITS | Encounter Summary ---
Author Organization [facility] Address [address] [place] [address] Care Team Providers Care Territory Business Manager Name Role Phone Rolando Moise MD Primary Care Provider [phone] Encounter Details Date Type Department Care Team (Late st Contact Info) Description 10/10/2023 Lab Requisition [facility] Pathology & Laboratory Medicine - [address] [phone] Outr Resulting Lab, Provider Social History Tobacco [...] Lyme Ab Negative Negative 10/13/2023 13:01 EDT [facility] Blood VENOUS BLOOD / Unknown 10/09/2023 14:15 EDT 10/10/2023 17:29 EDT Provider Outr Resulting Lab IMMUNOLOGY A ND SEROLOGY ORDERABLES [facility] [address] [place] [address] documented in this encounter Visit Diagnoses Not on filedocumented in this encounter Care Teams Territory Business Manager Relationship Specialty Start Date End Date Rolando Moise MD [address] [place] [address] PCP - General 10/30/16 documented as of this encounter
--- OUTSIDE RECORDS SUMMARY | 2024-01-25 13:40 | XMS_ITS | Referral Summary ---
Author Organization [facility] Address [address] [place] [address] Care Team Providers Care Home School Liaison Officer Name Role Phone Rolando Moise MD Primary Care Provider [phone] Social History Tobacco Use Types Packs/Day Years [...] - Plan of Treatment Not on file Care Teams Home School Liaison Officer Relationship Specialty Start Date End Date Rolando Moise MD [facility] [address] [place] [address] PCP - General 10/30/16
--- OUTSIDE RECORDS SUMMARY | 2024-01-25 13:40 | XMS_ITS | Encounter Summary ---
Author Organization [facility] Address [address] [place] [address] Care Team Providers Care Ic Designer Gate Arrays Name Role Phone Rolando Moise MD Primary Care Provider [phone] Encounter Details Date Type Department Care Team (Late st Contact Info) Description 07/22/2022 Lab Requisition [facility] Pathology & Laboratory Medicine - [address] [address] Outr Resulting Lab, Provider Social [...] 19 - 88 pg/mL 07/22/2022 22:48 EDT [facility] Blood VENOUS BLOOD / Unknown 07/22/2022 11:00 EDT 07/22/2022 21:28 EDT Provider Outr Resulting Lab CHEMISTRY & BLOOD GAS ORDERABLES [facility] [address] [place] [address] documented in this encounter Visit Diagnoses Not on filedocumented in this encounter Care Teams Ic Designer Gate Arrays Relationship Specialty Start Date End Date Rolando Moise MD [facility] [place] [address] PCP - General 10/30/16 documented as of this encounter
--- OUTSIDE RECORDS SUMMARY | 2024-01-25 13:40 | XMS_ITS | Encounter Summary ---
Author Organization [facility] Address [address] [place] [address] Care Team Providers Care Vacuum Filter Operator Name Role Phone Rolando Moise MD Primary Care Provider [phone] Encounter Details Date Type Department Care Team (Late st Contact Info) Description 04/05/2021 Lab Requisition [facility] Pathology & Laboratory Medicine - [facility] [address] [place] [address] Rolando Moise MD [address] [place] [address] [place], [place] [id number] Encounter for other general examination Social History [...] management options, if applicable. 04/06/2021 11:57 EST [facility] Final Diagnosis A. SKIN OF BACK, RIGHT, PUNCH BIOPSY: -Focal acantholytic dyskeratosis. See comment. 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 04/06/2021 11:57 [facility] Attestation By the signature below, the attending physician certifies that they have 1) personally conducted a gross and/or microscopic examination of the described specimen(s), and/or personally interpreted the results of laboratory testing of the described specimen(s), and 2) personally rendered or confirmed the above diagnosis. 04/06/2021 11:57 [facility] at 1157 Clinical History Inflammatory rash; drug eruption? 04/06/2021 11:57 [facility] Gross Description A. Received in formalin labelled with proper patient identification (initials M, G) and R back, inflammatory rash eruption is a francisco-white and francisco-brown skin punch biopsy measuring 0.5 cm in diameter and excised to a depth of 0.5 cm. Bisected and submitted entirely in A1. QUINN ALY(ASCP) 04/05/2021 19:57 04/06/2021 11:57 [facility] Performing Lab [facility] 04/06/2021 11:57 [facility] Scanned Images 04/06/2021 11:57 [facility] Tissue TISSUE SPECIMEN FROM SKIN / Unknown 04/04/2021 16:00 EST 04/05/2021 17:51 EST Rolando Moise MD PATHOLOGY ORDERABLES [facility] [address] [place] [address] documented in this encounter Visit Diagnoses Diagnosis Encounter for other general examination documented in this encounter Care Teams Vacuum Filter Operator Relationship Specialty Start Date End Date Rolando Moise MD [facility] [place] [address] PCP - General 6/28/17 documented as of this encounter
--- OUTSIDE RECORDS SUMMARY | 2024-01-25 13:40 | XMS_ITS | Encounter Summary ---
Author Organization [facility] Address [address] [place] [address] Care Team Providers Care Senior Design Engineering Specialist Name Role Phone Rolando Moise MD Primary Care Provider [phone] Encounter Details Date Type Department Care Team (Late st Contact Info) Description 10/06/2023 Lab Requisition [facility] Pathology & Laboratory Medicine - [address] [phone] Outr Resulting Lab, Provider Social History Tobacco [...] Lyme Ab Negative Negative 10/07/2023 10:22 EDT [facility] Blood VENOUS BLOOD / Unknown 10/06/2023 0:04 EDT 10/06/2023 16:59 EDT Provider Outr Resulting Lab IMMUNOLOGY A ND SEROLOGY ORDERABLES [facility] [address] [place] [address] documented in this encounter Visit Diagnoses Not on filedocumented in this encounter Care Teams Senior Design Engineering Specialist Relationship Specialty Start Date End Date Rolando Moise MD [address] [place] [address] PCP - General 10/30/16 documented as of this encounter
--- OUTSIDE RECORDS SUMMARY | 2024-01-25 13:40 | XMS_ITS | Encounter Summary ---
Author Organization [facility] Address [address] [place] [address] Care Team Providers Care Children'S Aide Name Role Phone Rolando Moise MD Primary Care Provider [phone] Reason for Visit * (Routine) - Receiving Office to Obtain Authorization Specialty Diagnoses / Procedures Referred By Teodoro robertson Referred To Contact Procedures CT OUTSIDE IMAGES BODY Unknown, Provider, Referral ID Status Reason Start Date Expiration Date Visits Requested Visits Authorized [id number] Receiving Office to Obtain Authorization 11/07/2020 1 1 Encounter Details Date Type Department Care Team (Latest Contact Info) Description 11/07/2020 12:01 EDT - 11/07/2020 23:59 EDT Hospital Encounter [facility] Secondary Reads [place] Discharge Disposition: [...] on filedocumented in this encounter Care Teams Children'S Aide Relationship Specialty Start Date End Date Rolando Moise MD [place] [address] PCP - General 10/30/16 documented as of this encounter
--- OUTSIDE RECORDS SUMMARY | 2024-01-25 13:41 | XMS_ITS | Encounter Summary ---
[facility] [place] [address] Care Team Providers Care Petroleum Blending Plant Operator Name Role Phone Rolando Moise MD Primary Care Provider [phone] Encounter Details Date Type Department Care Team (Late st Contact Info) Description 07/18/2022 Telephone Dermatology at [address] [place] [address] Padmini Maria LPN Social History [...] [facility] [place], [place]. [facility] Moise's office faxes prescriptions to [phone]. [facility]. documented in this encounter Plan of Treatment Upcoming Encounters Date Type Department Care Team (Late st Contact Info) Description 02/02/2024 12:15 PM EDT Laboratory Appointment Lab [address] [place] [address] 02/02/2024 2:[address] Scan at [address] Pascale Barboza APRN [facility] [place] [address] 02/02/2024 2:30 PM EDT Office Visit Vascular Surgery at [place] [phone] Erik Gill MD [facility] [place] [address] documented as of this encounter Visit Diagnoses Not on filedocumented in this encounter Care Teams Petroleum Blending Plant Operator Relationship Specialty Start Date End Date Rolando Moise MD PCP - General Family Medicine 09/16/16 documented as of this encounter
--- OUTSIDE RECORDS SUMMARY | 2024-01-25 13:41 | XMS_ITS | Encounter Summary ---
Author Organization [facility] Address [facility] [place] [address] Care Team Providers Care Balloon Seller Name Role Phone Rolando Moise MD Primary Care Provider [phone] Encounter Details Date Type Department Care Team (Late st Contact Info) Description 01/08/2024 Telephone Cardiology at [address] [phone] Dung Palmer MD [facility] [place] [address] Social History Tobacco Use Types Packs/Day Years Used Date Smoking Tobacco: Former Pipe Q uit: 02/07/2017 Smokeless Tobacco: Never Alcohol Use Standard Drinks/Week Comments No 0 (1 standard drink = 0.6 oz pur e alcohol) [facility] Utilities Answer Date Recorded In the past 12 months has [employer], gas, oil, or water [employer] threatened to shut off services in your home? No 01/08/2024 Hunger Vital Sign Answer Date Recorded Within the past 12 months, y ou worried that your food would run out before you got the money to buy more. Never true 01/08/20 24 Within the past 12 months, t he food you bought just didn't last and you didn't have money to get more. Never true 01/08/2024 PRAPARE - Transportation Answer Date Re corded In the past 12 months, has l ack of transportation kept you from medical appointments or from getting medications? No 09/2023 In the past 12 months, has l ack of transportation kept you from meetings, work, or from getting things needed for daily living? No 01/08/2024 Housing Stability Vital Sign Answer Jimbo e Recorded In the last 12 months, was t here a time when you were not able to pay the mortgage or rent on time? No 01/08/2024 Number of Times Moved in the Last Year Not on fi le 01/08/2024 At any time in the past 12 m [facility], were you homeless or living in a usp (including now)? No 01/08/2024 DH IPV Inpatient Questions Answer Date Recorded Does Anyone Try to Keep You From Having Contact with Others or Doing Things Outside Your Home? no 01/08/2024 Feels Threatened by Someone no 09/2023 Feels Unsafe at Home or Work/School no 01/08/2024 Physical Signs of Abuse Present no 01/08/2024 Sex and Gender Information Value Date Recorded Sex Assigned at Not on file Gender Identity Not on file Sexual Orientation Not on file documented as of this encounter Miscellaneous Notes * Telephone Encounter - Dung Palmer MD - 01/08/2024 4:43 AM EDT Telephone Triage Note Initial Contact Date: 01/08/24 Initial Contact Time: 3087 Patient Location: [facility] Presenting Symptoms per OSH: 88 year old male, history of NSTEMI s/p MINNIE to mid-LAD and angioplasty of ostial D1 2016, HFrecEF, HTN, HLD, DM II, who was noted at home by his to be diaphoretic and not really responding, so 911 was called. EMS found him to be hypoglycemic with blood sugars in ~20s, administered dextrose andnoted improvement in blood sugars in 200s. His only new medication is tramadol 12.5 mg three times a day, which was prescribed for scrotal varicocele. Also take metoprolol succinate 25 mg daily. Current vitals - BP 151/66, HR 46, saturating well on room air. Intermittently still with blood sugar levels dipping down to 70 and 80s, associated with some lightheadedness. WBC 14, Hgb 11.6, Plt 286, Na 139, K 3.5, Cl 105, Cr 4.1 (from prior baseline 3.5-3.6), BNP 316, troponins negative. EKG shows sinus bradycardia with 1st degree AV block. No higher grade AV block on telemetry. Pertinent Diagnostic Findings: See above OSH Interventions: See above Plan: -Symptoms are most likely related to his hypoglycemia (possible delayed clearance of diabetic medications) and tramadol (which can cause lightheadedness), in the setting of decreased renal function -Advised to stop tramadol and hold beta juma for now; otherwise no acute intervention from a cardiovascular standpoint at this current time -Pt to be transferred to internal medicine service for further management per transfer center Above recommendations/plans are based on my conversation with the referring provider. I have not personally interviewed or examined this patient. Dung Palmer MD Finishing Supervisor documented in this encounter Plan of Treatment Upcoming Encounters Date Type Department Care Team (Late st Contact Info) Description 02/02/2024 12:15 PM EDT Laboratory Appointment Lab [address] [place] [address] 02/02/2024 2:[address] [place] [address] Pascale Barboza APRN [facility] [place] [address] 02/02/2024 2:30 PM EDT Office [place] [address] Erik Gill MD [facility] [place] [address] documented as of this encounter Visit Diagnoses Not on filedocumented in this encounter Care Teams Balloon Seller Relationship Specialty Start Date End Date Rolando Moise MD PCP - General Family Medicine 09/16/16 documented as of this encounter
--- OUTSIDE RECORDS SUMMARY | 2024-01-25 13:41 | XMS_ITS | Encounter Summary ---
Author Organization [facility] Address [facility] [place] [address] Care Team Providers Care Truant Officer Name Role Phone Rolando Moise MD Primary Care Provider Reason for Referral * Consultation (Routine) - Closed Specialty Diagnoses / Procedures Referred By Contac t Referred To Contact Vascular Surgery Diagnoses Abdominal aortic aneurysm (AAA) without rupture, unspecified part ROUTINE, ELPIDIO/, CT AAA Rolando Moise MD [address] [place] [address] [place] [address] [facility] Vascular Surg [address] [place] [address] Referral ID Status Reason Start Date Expiration Date V isits Requested Visits Authorized [id number] Closed Consult, Test & Treat PCP Updated and/or Approved 06/13/2023 06/12/2024 1 1 Encounter Details Date Type Department Care Team (Late st Contact Info) Description 06/13/2023 Transcribe Orders eDH Incoming Referrals [phone] Rolando Moise MD [address] [place] [address] [address] [place], [place] [phone] Abdominal aortic aneurysm (AAA) without rupture, unspecified [...] 12:15 PM EDT Laboratory Appointment Lab [address] [place] [address] 02/02/2024 2:[address] [place] [address] Pascale Barboza, ARDHA [facility] [place] [address] 02/02/2024 2:30 PM EDT Office Visit Vascular Surgery at [place] [phone] Erik Gill MD [facility] [place] [address] Scheduled Referrals Name Type Priority Associated Diagnoses Orde r Schedule Referral to Vascular Surgery Outpatient Referral Urgent Abdominal aortic aneurysm (AAA) without rupture, unspecified part Ordered: 06/13/2023 documented as of this encounter Visit Diagnoses Diagnosis Abdominal aortic aneurysm (AAA) without rupture, unspecified part- Primary documented in this encounter Care Teams Truant Officer Relationship Specialty Start Date End Date Rolando Moise MD PCP - General Family Medicine 09/16/16 documented as of this encounter
--- OUTSIDE RECORDS SUMMARY | 2024-01-25 13:41 | XMS_ITS | Encounter Summary ---
Author Organization [facility] [place] [address] Care Team Providers Care Informatics Physician Name Role Phone Rolando Moise MD Primary Care Provider [phone] Encounter Details Date Type Department Care Team (Late st Contact Info) Description 07/25/2023 Telephone [place] [phone] Migue Ahn Social History Tobacco Use Types [...] 12:15 PM EDT Laboratory Appointment Lab [address] [place] [address] 02/02/2024 2:[address] [place] [place] [address] Pascale Barboza APRN [facility] [place] [address] 02/02/2024 2:30 PM EDT Office [place] [address] Erik Gill MD [facility] [place] [address] documented as of this encounter Visit Diagnoses Not on filedocumented in this encounter Care Teams Informatics Physician Relationship Specialty Start Date End Date Rolando Moise MD PCP - General Family Medicine 09/16/16 documented as of this encounter
--- OUTSIDE RECORDS SUMMARY | 2024-01-25 13:41 | XMS_ITS | Encounter Summary ---
Author Organization [facility] Address [facility] [place] [address] Care Team Providers Care Cigar Wrapper Name Role Phone Rolando Moise MD Primary Care Provider [phone] Encounter Details Date Type Department Care Team (Late st Contact Info) Description 01/08/2024 External Results Transfer Center [facility] [place] [address] Social History Tobacco Use Types Packs/Day Years Used Date Smoking Tobacco: Former Pipe Q uit: 02/07/2017 Smokeless Tobacco: Never Alcohol Use Standard Drinks/Week Comments No 0 (1 standard drink = 0.6 oz pur e alcohol) [facility] Utilities Answer Date Recorded In the past 12 months has th e electric, gas, oil, or water [employer] threatened to shut off services in your [...] any time in the past 12 m [facility], were you homeless or living in a jail (including now)? No 01/08/2024 IPV Inpatient Questions Answer Date Recorded Does [...] 02/02/2024 12:15 PM EDT Laboratory Appointment Lab [address] [address] 02/02/2024 2:[address] [place] [address] Pascale Barboza, RADHA [facility] [place] [address] 02/02/2024 2:30 PM EDT Office Visit [place] [address] Erik Gill MD [facility] [place] [address] documented as of this encounter Procedures Procedure Name Priority Date/Time Associated Diagnosis Comments MISC EXTERNAL CARDIOLOGY RESULT Routine 01/08/2024 4:37 AM EDT documented in this encounter Results * External Cardiology Result (01/08/2024 4:37 AM EDT) Anatomical Region Laterality Modality Other Historical Provider EXTERNAL CARDIOLO GY RESULT documented in this encounter Visit Diagnoses Not on filedocumented in this encounter Care Teams Cigar Wrapper Relationship Specialty Start Date End Date Rolando Moise MD PCP - General Family Medicine 09/16/16 documented as of this encounter
--- OUTSIDE RECORDS SUMMARY | 2024-01-25 13:41 | XMS_ITS | Encounter Summary ---
Author Organization [facility] Address [facility] [place] [address] Care Team Providers Care Dobby Loom Chain Pegger Name Role Phone Rolando Moise MD Primary Care Provider [phone] Encounter Details Date Type Department Care Team (Late st Contact Info) Description 11/09/2020 Telephone [place] [phone] Evan Sinclair MD [facility] [place] [address] Social History Tobacco Use Types Packs/Day Years [...] 12:15 PM EDT Laboratory Appointment Lab [address] [place] [address] 02/02/2024 2:[address] [place] [phone] Pascale Barboza APRN [facility] [place] [address] 02/02/2024 2:30 PM EDT Office Visit [place] [address] Erik Gill MD [facility] [place] [place] [address] documented as of this encounter Visit Diagnoses Not on filedocumented in this encounter Care Teams Dobby Loom Chain Pegger Relationship Specialty Start Date End Date Rolando Moise MD PCP - General Family Medicine 09/16/16 documented as of this encounter
--- OUTSIDE RECORDS SUMMARY | 2024-01-25 13:41 | XMS_ITS | Encounter Summary ---
Author Organization [facility] Address [address] [place] [address] Care Team Providers Care Knife Setter Grinder Machine Name Role Phone Rolando Zacarias MD Primary Care Provider [phone] Encounter Details Date Type Department Care Team (Late st Contact Info) Description 10/28/2016 Results Only [facility] [phone] Stephani Beltre, [address] [place] [address] Social History Tobacco Use Types [...] ? CALI THOMPSON ? Accession #: ? [id number] : ? 1935 (Age: 80) ??M ?Collect Date: ? 10/28/2016 Location: ? [facility] ? Receive Date: ? 10/29/2016 Provider: ? STEPHANI BELTRE DO Copy to: ?NILSA PRINCE TAFE REGISTRAR ? CYTOLOGIC DIAGNOSIS: A. NECK/TAIL OF PAROTID, [...] with clinical and radiographic findings is essential. ??Lead Web Developer slides of this case were reviewed at [...] cellular enhancement technique. ? End of Report [facility] 10/28/2016 10/29/2016 9:2 2 EDT Stephani Beltre DO PATHOLOGY ORDER BRIANNE Performing Organization Address City/State/[facility] Co de Phone Number [facility] [address] [place] [address] documented in this encounter Visit Diagnoses Not on filedocumented in this encounter Care Teams Knife Setter Grinder Machine Relationship Specialty Start Date End Date Rolando Zacarias MD [address] [place] [address] PCP - General 12/17/11 10/29/16 documented as of this encounter
--- OUTSIDE RECORDS SUMMARY | 2024-01-25 13:41 | XMS_ITS | Encounter Summary ---
Author Organization [facility] Address [address] [place] [address] Care Team Providers Care Stiff Straw Hat Washer Name Role Phone Rolando Zacarias MD Primary Care Provider [phone] Encounter Details Date Type Department Care Team (Latest Contact Info) Description 10/28/2016 9:45 EDT - 10/28/2016 23:59 EDT Hospital Encounter [facility] [address] [place] [address] Unknown, Provider, Discharge Disposition: Home or Self Care Social History Tobacco Use Types Packs/Day Years Used Date Smoking Tobacco: Never Assessed Sex and Gender Information Value Date Recorded Sex Assigned at Not on file Gender Identity Not on file Sexual Orientation Not on file documented as of this encounter Discharge Disposition Disposition Code Departure Means Destination Home or Self Long Term documented in this encounter Plan of Treatment Not on file documented as of this encounter Visit Diagnoses Not on filedocumented in this encounter Care Teams Stiff Straw Hat Washer Relationship Specialty Start Date End Date Rolando Zacarias MD [address] [place] [address] PCP - General 12/17/11 10/29/16 documented as of this encounter
--- OUTSIDE RECORDS SUMMARY | 2024-01-25 13:41 | XMS_ITS | Encounter Summary ---
Author Organization [facility] Address [address] [place] [address] Care Team Providers Care Rolling Mill Operator Helper Name Role Phone Rolando Moise MD Primary Care Provider [phone] Encounter Details Date Type Department Care Team [...] on filedocumented in this encounter Care Teams Rolling Mill Operator Helper Relationship Specialty Start Date End Date Rolando Moise MD [facility] [place] [address] PCP - General 10/30/16 documented as of this encounter
--- OUTSIDE RECORDS SUMMARY | 2024-01-25 13:41 | XMS_ITS | Encounter Summary ---
Author Organization [facility] Address [address] [place] [address] Care Team Providers Care Plasma Center Nurse Name Role Phone Arely Moise MD Primary Care Provider [phone] Encounter Details Date Type Department Care Team (Late st Contact Info) Description 07/19/2018 Results Only [facility] [phone] Aga Reynaga MD [address] [place] [address] Social History Tobacco Use Types [...] ? CALI THOMPSON ? Accession #: ? [id number] ? : ? 1935 (Age: 82) ??M [...] folds. The uninvolved serosa is unremarkable. ? Ski Edge Painter sections are submitted as follows: BLOCK MOREJON 1- ??proximal margin including diverticula 2- ??distal margin 3-4- ??area of perforation site, full thickness, bisected 5-6- ??area of perforation site, full thickness, bisected 7- ??diverticula Dr. Goode 07/21/2018 1:42 PM End of Report [facility] 07/19/2018 11:1 2 EDT 07/20/2018 11:12 EDT Aga Reynaga MD PATHOLOGY ORDERA JAZZY [facility] [address] [place] [address] documented in this encounter Visit Diagnoses Not on filedocumented in this encounter Care Teams Plasma Center Nurse Relationship Specialty Start Date End Date Arely Moise [place] [address] [place] [address] PCP - General 10/30/16 documented as of this encounter
--- OUTSIDE RECORDS SUMMARY | 2024-01-25 13:41 | XMS_ITS | Encounter Summary ---
Author Organization [facility] [place] [address] Care Team Providers Care Cordwainer Name Role Phone Rolando Moise MD Primary Care Provider [phone] Encounter Details Date Type Department Care Team [...] 12:15 PM EDT Laboratory Appointment Lab [address] [place] [address] 02/02/2024 2:[address] [place] [address] Pascale Barboza APRN [facility] [place] [place] [address] 02/02/2024 2:30 PM EDT Office Visit [place] [address] Erik Gill MD [facility] [place] [address] documented as of this encounter Visit Diagnoses Not on filedocumented in this encounter Care Teams Cordwainer Relationship Specialty Start Date End Date Rolando Moise MD PCP - General Family Medicine 09/16/16 documented as of this encounter
--- OUTSIDE RECORDS SUMMARY | 2024-01-25 13:41 | XMS_ITS | Encounter Summary ---
Author Organization [facility] Address [address] [place] [address] Care Team Providers Care Biblical Languages Professor Name Role Phone Rolando Moise MD Primary Care Provider [phone] Encounter Details Date Type Department Care Team (Late st Contact Info) Description 06/06/2020 Lab Requisition [facility] Pathology & Laboratory Medicine - [address] [address] Outr Resulting Lab, Provider Social [...] 19 - 88 pg/mL 06/07/2020 8:52 EST [facility] Blood VENOUS BLOOD / Unknown 06/06/2020 10:30 EST 06/06/2020 19:30 EST Provider Outr Resulting Lab CHEMISTRY & BLOOD GAS ORDERABLES [facility] [address] [place] [address] documented in this encounter Visit Diagnoses Not on filedocumented in this encounter Care Teams Biblical Languages Professor Relationship Specialty Start Date End Date Rolando Moise MD [address] [place] [address] PCP - General 10/30/16 documented as of this encounter
--- OUTSIDE RECORDS SUMMARY | 2024-01-25 13:41 | XMS_ITS | Encounter Summary ---
Author Organization [facility] Address [address] [place] [address] Care Team Providers Care Hand Surgeon Name Role Phone Unavailable Primary Care Provider Unavailabl e Encounter Details Date Type Department Care Team (Late st Contact Info) Description 08/06/2001 Results Only [facility] conversion [address] [place] [address] Arely Schroeder MD [address] [place] [phone] Social History Tobacco Use Types Packs/Day Years [...] CALI THOMPSON Mamie ? Accession #: ? [id number] ? : ? 1935 (Age: 65) ??M [...] Schroeder MD PATHOLOGY ORDERABLES Performing Organization Address City/State/[facility] Co de Phone Number [facility] [address] [place] [address] documented in this encounter Visit Diagnoses Not on filedocumented in this encounter
--- OUTSIDE RECORDS SUMMARY | 2024-01-25 13:41 | XMS_ITS | Encounter Summary ---
Author Organization [facility] Address [address] [place] [address] Care Team Providers Care Hotel Clerk Name Role Phone Rolando Moise MD Primary Care Provider [phone] Encounter Details Date Type Department Care Team (Late st Contact Info) Description 02/25/2020 Lab Requisition [facility] Pathology & Laboratory Medicine - [facility] [address] [place], [place] [address] Outr Resulting Lab, Provider Social History Tobacco [...] rt-PCR Result NEGATIVE Negative 02/26/2020 11:54 EDT [facility] Comment: 2019-novel Coronavirus (2019-nCoV) [...] in accordance with CLIA regulations, [employer] (CAP) guidelines (Jul 22, 2019), and FDA guidance (Jul 03, 2019). This test is only for use under the Food and Drug Administration's Emergency Use Authorization. Swab ENTIRE NASOPHARYNX / Unknown 02/25/2020 9:11 EDT 02/25/2020 15:49 EDT Provider Outr Resulting Lab MICROBIOLOGY - GENERAL ORDERABLES [facility] [place], [place] * COVID-19 TESTING (02/25/2020 9:11 EDT) COVID-19 rt-PCR Result NEGATIVE Negative 02/26/2020 12:38 EDT [facility] Comment: 2019-novel Coronavirus (2019-nCoV) not detected [...] in accordance with CLIA regulations, [employer] (CAP) guidelines (Jul 22, 2019), and FDA guidance (Jul 03, 2019). This test is only for use under the Food and Drug Administration's Emergency Use Authorization. Performing Lab [facility] 02/26/2020 12:[address] [facility] Swab 02/25/2020 9:11 EDT 02/25/2020 15:49 EDT Provider Outr Resulting Lab MICROBIOLOGY - GENERAL ORDERABLES [facility] [address] [place] [address] [facility] [place], [place] documented in this encounter Visit Diagnoses Not on filedocumented in this encounter Care Teams Hotel Clerk Relationship Specialty Start Date End Date Rolando Moise MD [facility] [place] [address] PCP - General 10/30/16 documented as of this encounter
--- OUTSIDE RECORDS SUMMARY | 2024-01-25 13:41 | XMS_ITS | Encounter Summary ---
Author Organization [facility] Address [facility] [place] [address] Care Team Providers Care Paying Teller Name Role Phone Rolando Moise MD Primary Care Provider [phone] Encounter Details Date Type Department Care Team (Late st Contact Info) Description 09/01/2023 Orders [place] [address] Estela Jesus RN Infrarenal abdominal aortic aneurysm [...] 12:15 PM EDT Laboratory Appointment Lab [address] [place] [phone] 02/02/2024 2:[address] [place] [place] [address] Pascale Barboza, BAG REPAIRER [facility] [place] [address] 02/02/2024 2:30 PM EDT Office [place] [address] Erik Gill MD [facility] [place] [address] Scheduled Orders Name Type Priority Associated Diagnoses Orde r Schedule Creatinine Lab STAT Infrarenal abdominal aortic aneurysm (AAA) without rupture Expected: 09/01/2023, Expires: 08/31/2024 documented as of this encounter Visit Diagnoses Diagnosis Infrarenal abdominal aortic aneurysm (AAA) without rupture documented in this encounter Care Teams Paying Teller Relationship Specialty Start Date End Date Rolando Moise MD PCP - General Family Medicine 09/16/16 documented as of this encounter
--- OUTSIDE RECORDS SUMMARY | 2024-01-25 13:41 | XMS_ITS | Encounter Summary ---
Author Organization [facility] Address [address] [place] [address] Care Team Providers Care Heel Room Supervisor Name Role Phone Rolando Moise MD Primary Care Provider [phone] Encounter Details Date Type Department Care Team (Late st Contact Info) Description 04/24/2020 Lab Requisition [facility] Pathology & Laboratory Medicine - [facility] [address] [place] [address] Dana Quijano MD [address] [place] [phone] Encounter for other general examination Social History [...] Diagnosis See scanned downtime report. 04/24/2020 13:02 [facility] Attestation Report electronically released by Rubén Adair on 04/24/20 . 04/24/2020 13:02 [facility] Performing Lab [facility] 04/24/2020 13:02 EST [facility] Scanned Images 04/24/2020 13:02 EST [facility] Tissue ENTIRE APPENDIX / Unknown 03/01/2020 12:10 EDT 04/24/2020 13:00 EST Dana Quijano MD PATHOLOGY ORDERA CHILOS [facility] [address] [place] [address] documented in this encounter Visit Diagnoses Diagnosis Encounter for other general examination documented in this encounter Care Teams Heel Room Supervisor Relationship Specialty Start Date End Date Rolando Moise MD [address] [place] [address] PCP - General 10/30/16 documented as of this encounter
--- OUTSIDE RECORDS SUMMARY | 2024-01-25 13:41 | XMS_ITS | Encounter Summary ---
Author Organization [facility] Address [address] [place] [address] Care Team Providers Care Deck Hand Name Role Phone Rolando Moise MD Primary Care Provider [phone] Encounter Details Date Type Department Care Team (Latest Contact Info) Description 07/19/2018 12:50 EDT - 07/19/2018 23:59 EDT Hospital Encounter [address] [address] Unknown, Provider, Discharge Disposition: Home or Self Care Social History Tobacco Use Types Packs/Day Years Used Date Smoking Tobacco: Never Assessed Sex and Gender Information Value Date Recorded Sex Assigned at Not on file Gender Identity Not on file Sexual Orientation Not on file documented as of this encounter Discharge Disposition Disposition Code Departure Means Destination Home or Self Senior Living documented in this encounter Plan of Treatment Not on file documented as of this encounter Visit Diagnoses Not on filedocumented in this encounter Care Teams Deck Hand Relationship Specialty Start Date End Date Rolando Moise MD [facility] [place] [address] PCP - General 10/30/16 documented as of this encounter
--- OUTSIDE RECORDS SUMMARY | 2024-01-25 13:41 | XMS_ITS | Encounter Summary ---
Author Organization [facility] Address [facility] [place] [address] Care Team Providers Care Designated Broker Name Role Phone Rolando Moise MD Primary Care Provider [phone] Reason for Visit * Reason Onset Date Comments Other 11/10/2020 Encounter Details Date Type Department Care Team (Late st Contact Info) Description 11/10/2020 Telephone Cardiology at [address] [phone] Antoina Martin, RN Other Social History Tobacco Use [...] PM EDT Call from Mercedes SANDERS from [facility] [phone],questions regarding [facility] discharge (yesterday 11/09/20) medications. Return call to Mercedes,voice message left directing her to contact [facility] -contact # given. manager hotel while inpatient Penny Bee RN. documented in this encounter Plan of Treatment Upcoming Encounters Date Type Department Care Team (Late Contact Info) Description 02/02/2024 12:15 PM EDT Laboratory Appointment Lab [address] [place] [address] 02/02/2024 2:[address] [place] [place] [address] Pascale Barboza APRN [facility] [place] [address] 02/02/2024 2:30 PM EDT Office [place] [address] Erik Gill MD [facility] [place] [address] documented as of this encounter Visit Diagnoses Not on filedocumented in this encounter Care Teams Designated Broker Relationship Specialty Start Date End Date Rolando Moise MD PCP - General Family Medicine 09/16/16 documented as of this encounter
--- OUTSIDE RECORDS SUMMARY | 2024-01-25 13:41 | XMS_ITS | Encounter Summary ---
[place] [address] Care Team Providers Care Customer Solutions Coordinator Name Role Phone Rolando Moise MD Primary Care Provider [phone] Reason for Referral * Consultation (Routine) - Closed Specialty Diagnoses / Procedures Referred By Contac t Referred To Contact Nephrology Diagnoses Chronic kidney disease, stage IV (severe) Rolando Moise MD [address] [place] [address] [place] [address] [facility] Nephrology [address] [place] [phone] Referral ID Status Reason Start Date Expiration Date V isits Requested Visits Authorized [id number] Closed Consult, Test & Treat PCP Updated and/or Approved 02/28/2022 02/28/2023 6 6 Encounter Details Date Type Department Care Team (Late st Contact Info) Description 02/28/2022 Transcribe Orders eDH Incoming Referrals [phone] Rolando Moise MD [address] [place] [address] [address] [place], [place] [phone] Chronic kidney disease, stage IV (severe) Social [...] 12:15 PM EDT Laboratory Appointment Lab [address] [place] [address] 02/02/2024 2:[address] Scan at [place] [phone] Pascale Barboza APRN [facility] [place] [address] 02/02/2024 2:30 PM EDT Office Visit Vascular Surgery at [place] [phone] Erik Gill MD [facility] [place] [address] Scheduled Referrals Name Type Priority Associated Diagnoses Order Schedule Referral to Nephrology Outpatient Referral Routine Chronic kidney disease, stage IV (severe) Ordered: 02/28/2022 documented as of this encounter Visit Diagnoses Diagnosis Chronic kidney disease, stage IV (severe) Chronic kidney disease, Stage IV (severe) documented in this encounter Care Teams Customer Solutions Coordinator Relationship Specialty Start Date End Date Rolando Moise MD PCP - General Family Medicine 09/16/16 documented as of this encounter
--- OUTSIDE RECORDS SUMMARY | 2024-01-25 13:41 | XMS_ITS | Clinical Summary ---
Author Organization [facility] Address [facility] [place] [address] Care Team Providers Care Relationship Advisor Name Role Phone Rolando Moise MD Primary Care Provider [phone] Allergies No known active allergies Medications Medication [...] times daily. 60 tablet 3 11/09/2020 Active Insulin Syringe-Needle U-100 0.3 mL 31 gauge x 5/16 Syringe 1 Box by [facility] [place]Non-Drug; Combo Route) route as needed. 90 Syringe 3 11/09/2020 Active AMIOdarone (Pacerone) 200 mg Tablet Take 1 tablet by mouth daily. Take 2 tablet TWICE a DAY for 7days. Then decrease to 1 tablet ONCE a DAY 30 tablet 11 11/09/2020 Active alogliptin (Nesina) 6.25 mg tablet [...] 80 mg tablet 80 mg. 11/12/2021 Active magnesium oxide (Mag-Ox) 400 mg (241.3 [...] 1 tablet by mouth daily. 06/12/2022 Active acetaminophen (Tylenol) 500 mg tablet Take 1,000 mg by mouth. 12/31/2023 Active allopurinoL (Zyloprim) 100 mg tablet Take 50 mg by mouth. 12/26/2023 Acti ve insulin aspart (NovoLOG) 100 unit/mL Solution Inject 3 Units subcutaneously 3 times daily (with meals). 3 mL 12 01/09/2024 Active insulin glargine-yfgn (Semglee) 100 unit/mL Solution Inject 5 Units subcutaneously daily. 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 He has not used any SL nitroglycerin since our last visit. 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 He also tolerates house/yard work fine [...] Encounters Date Type Department Care Team Description 01/08/2024 6:54 AM EDT - 01/09/2024 4:36 PM EDT Hospital Encounter Medical Special Care Unit Level 3 [place] [address] Ángel Martin, Shantelle Ledesma, DO Atrial fibrillation, unspecified type Discharge Disposition: Home 01/08/2024 5:05 AM EDT Ancillary Procedure Radiology Library at [facility] [phone] Ángel Martin, 01/08/2024 Telephone Cardiology at [address] [phone] Dung Palmer MD 01/08/2024 External [place] [address] 12/16/2023 [place] [phone] Nimisha Olmos from Last 3 Months Immunizations Name Administration Dates Next Due Influenza (Fluzone HD) Trivalent High Dose 02/05 Social History Tobacco Use Types Packs/Day Years Used Date Smoking Tobacco: Former Pipe Q uit: 02/07/2017 Smokeless Tobacco: Never Tobacco Cessation:Counseling Given: No Alcohol Use Standard Drinks/Week Comments No 0 (1 standard drink = 0.6 oz pur e alcohol) [facility] Utilities Answer Date Recorded In the past 12 months has th e electric, gas, oil, or water company threatened to shut off services in your [...] Moved in the Last Year Not on le 01/08/2024 At any time in the past [address] [facility], were you homeless or living in a skilled nursing (including now)? No 01/08/2024 IPV Inpatient Questions [...] Sign Reading Time Taken Comments Blood Pressure 115/76 01/09/2024 12:05 PM EDT Pulse 63 01/08/2024 10:00 PM EDT Temperature 36.4 ??C (97.5 ??F) 01/09/2024 12:05 PM E DT Respiratory Rate 16 01/09/2024 3:02 AM EDT Oxygen Saturation 98% 01/09/2024 12:05 PM EDT Inhaled Oxygen Concentration - - Weight 84.1 kg (185 lb 6.5 oz) 01/08/2024 6:58 A M EDT Height 172.7 cm (5' 8) 01/08/2024 6:58 AM EDT Body Mass Index 28.19 01/08/2024 6:58 AM EDT Plan of Treatment Upcoming Encounters Date Type Department Care Team (Late st Contact Info) Description 02/02/2024 12:15 PM EDT Laboratory Appointment Lab [address]L [place] [phone] 02/02/2024 2:[address] [place] [address] Pascale Barboza APRN [facility] [place] [place] [address] 02/02/2024 2:30 PM EDT Office [place] [phone] Erik Gill MD [facility] VASCULAR SURGERY [place], [place] [id number] Health Maintenance Due Date Last Done Comments Pneumoccocal Vaccine: 65+ (1 of 2 - PCV) 1942 DM Opthalmology Exam 1946 DM Urine Microalbumin yearly 1945 Tdap adult 11/16/1955 Tetanus vaccine 11/16/1955 Zoster vaccine (1 of 2) 1986 Covid-19 Vaccine (1 - 2022-2 4 season) 2024 Influenza (Flu) vaccine (1 o f 1 - Influenza standard series) 01/04/2024 02/05/2017 DM Hemoglobin A1c 6 month 07/07/20242023, 11/07/2020, 02/04/2017 DM Creatinine yearly 01/08/2025 01/09/2024, 01/08/2024, 11/09/2020, Additional history exists Medical Devices Implanted Type Area Radiation Physicist Device Identifier Shelf Expiration Date Model / Serial / Lot Graft,Zfa,[id number] ,[id number] ([id number]) ([employer]) - [id number] Implanted:Qty: 1 on 04/12/2011 at [facility] IMPLANTS N/A: Aorta 03/13/2012 TFFB-32-82 -ZT / [id number] / [id number] Graft,Zfa,Ciil ,[id number] ([id number]) ([employer]) - [id number] Implanted:Qty: 1 on 04/12/2011 at [facility] IMPLANTS Right: Abdomen 08/11/2012 TFLE-16-56 -ZT / [id number] / [id number] Description:right iliac Graft,Zfa,Ciil ,[id number] ([id number]) ([employer]) - [id number] Implanted:Qty: 1 on 04/12/2011 at [facility] IMPLANTS Left: Abdomen 03/13/2012 TFLE-16-73 -ZT / [id number] / [id number] Procedures Procedure Name Priority Date/Time Associated Diagnosis Comments POC, GLUCOSE Routine 01/09/2024 12:08 PM EDT POC, GLUCOSE Routine 01/09/2024 8:29 AM EDT SCAN, PERIPHERAL BLOOD Routine 01/09/2024 3:07 AM EDT BASIC METABOLIC PANEL Routine 01/09/2024 3:07 AM EDT CBC (WITH DIFF) Routine 01/09/2024 3:07 AM EDT POC, GLUCOSE Routine 01/09/2024 3:06 AM EDT POC, GLUCOSE Routine 01/09/2024 12:05 AM EDT SCAN DOC: TELEMETRY STRIPS 01/08/2024 9:33 PM EDT POC, GLUCOSE Routine 01/08/2024 7:36 PM EDT POC, GLUCOSE Routine 01/08/2024 5:29 PM EDT POC, GLUCOSE Routine 01/08/2024 1:12 PM EDT HEPATIC FUNCTION PANEL Routine 01/08/2024 11:02 AM EDT MAGNESIUM Routine 01/08/2024 11:02 AM EDT BASIC METABOLIC PANEL Routine 01/08/2024 11:02 AM EDT CBC (WITH DIFF) Routine 01/08/2024 11:02 AM EDT HEMOGLOBIN A1C Routine 01/08/2024 11:02 AM EDT BLOOD CULTURE Routine 01/08/2024 11:02 AM EDT URINALYSIS MICROSCOPIC WITH REFLEX TO CULTURE Routine 01/08/2024 10:29 AM EDT URINALYSIS WITH REFLEX CULTURE Routine 01/08/2024 10:29 AM EDT POC, GLUCOSE Routine 01/08/2024 9:43 AM EDT SCAN DOC: TELEMETRY STRIPS 01/08/2024 9:40 AM EDT POC, GLUCOSE Routine 01/08/2024 7:02 AM EDT FILM LIBRARY STORAGE ONLY DX CHEST Routine 01/08/2024 5:03 AM EDT MISC EXTERNAL CARDIOLOGY RESULT Routine 01/08/2024 4:37 AM EDT LAB SCAN 11/18/2023 12:00 AM EDT from Last 3 Months Results * POC, GLUCOSE (01/09/2024 12:08 PM EDT) Only the most recent of9 resultswithin the time period is included. Glucometer, POC 147 65 - 199 mg/dL 01/09/2024 12:10 PM EDT [facility] Comment:Supplemental ranges: <140 mg/dL before meals <180 mg/dL all other times of the day. Blood CAPILLARY BLOOD / Unknown 01/09/2024 12:08 PM EDT 01/09/2024 12:10 PM EDT Shantelle Longo DO POINT OF CARE TEST O RDERABLES [facility] [place] [address] * Scan, Peripheral Blood (01/09/2024 3:07 AM EDT) RBC Morphology Normal 01/09/2024 3:51 AM EDT [facility] Platelet Estimate Normal Normal 01/09/2024 3:51 AM EDT [facility] Blood VENOUS BLOOD SPECIMEN / Unknown IP Care Team Draw / Unknown 01/09/2024 3:07 AM EDT 01/09/2024 3:14 AM EDT Ángel L Martin DO HEMATOLOGY ORDERAB LES [facility] [place] [address] * (ABNORMAL) CBC (with Diff) (01/09/2024 3:07 AM EDT) Only the most recent of2 resultswithin the time period is included. White Blood Cell 13.93(H) 4.00 - 9.50 x10(3)/mc L 01/09/2024 3:51 AM EDT [facility] Red Blood Cell 3.96(L) 4.58 - 5.54 x10(6)/mc L 01/09/2024 3:51 AM EDT [facility] Hemoglobin 11.4(L) 13.7 - 16.5 g/dL 01/09/2024 3:51 AM EDT [facility] Hematocrit 35.9(L) 40.5 - 48.5 % 01/09/2024 3:51 AM EDT [facility] Mean Cell Volume 90.7 82.9 - 93.1 fL 01/09/2024 3:51 AM EDT [facility] Mean Cell Hemoglobin 28.8 27.5 - 32.1 pg 01/09/2024 3:51 AM EDT [facility] Mean Cell Hemoglobin Concentration 31.8(L) 32.0 - 35.7 g/dL 01/09/2024 3:51 AM EDT [facility] Platelet 332 145 - 357 x10(3)/mc L 01/09/2024 3:51 AM EDT [facility] Mean Platelet Volume 9.5 7.6 - 12.9 fL 01/09/2024 3:51 AM EDT [facility] RDW Standard Deviation 42.8 36.0 - 45.0 fL 01/09/2024 3:51 AM EDT [facility] RDW coefficient of variation 13.0 11.4 - 13.8 % 01/09/2024 3:51 AM EDT [facility] NRBC% auto 0.0 % 01/09/2024 3:51 AM [facility] NRBC Absolute 0.00 0.00 - 0.00 x10(3)/mc L 01/09/2024 3:51 AM [facility] Neutrophil % 69.0 % 01/09/2024 3:51 AM [facility] Comment:This is an appended report. These results have been appended to a previously preliminary verified report. Neutrophil Absolute (ANC) - Automated 9.60(H) 1.70 - 6.10 x10(3)/mc L 01/09/2024 3:51 AM [facility] Comment:This is an appended report. These results have been appended to a previously preliminary verified report. Lymph % 17.4 % 01/09/2024 3:51 AM [facility] Comment:This is an appended report. These results have been appended to a previously preliminary verified report. Lymph Absolute 2.42 0.90 - 3.20 x10(3)/mc L 01/09/2024 3:51 AM [facility] Comment:This is an appended report. These results have been appended to a previously preliminary verified report. Monocyte % 11.7 % 01/09/2024 3:51 AM [facility] Comment:This is an appended report. These results have been appended to a previously preliminary verified report. Monocyte Absolute 1.63(H) 0.30 - 0.90 x10(3)/mc L 01/09/2024 3:51 AM [facility] Comment:This is an appended report. These results have been appended to a previously preliminary verified report. Eos % 1.1 % 01/09/2024 3:51 AM [facility] Comment:This is an appended report. These results have been appended to a previously preliminary verified report. Eos Absolute 0.16 0.00 - 0.40 x10(3)/mc L 01/09/2024 3:51 AM [facility] Comment:This is an appended report. These results have been appended to a previously preliminary verified report. Basophil % 0.2 % 01/09/2024 3:51 AM EDT [facility] Comment:This is an appended report. These results have been appended to a previously preliminary verified report. Baso Absolute 0.03 0.00 - 0.10 x10(3)/mc L 01/09/2024 3:51 AM EDT [facility] Comment:This is an appended report. These results have been appended to a previously preliminary verified report. Immature Gran % 0.6 % 3:51 AM EDT [facility] Comment:This is an appended report. These results have been appended to a previously preliminary verified report. Immature Gran Absolute 0.09(H) 0.00 - 0.04 x10(3)/mc L 01/09/2024 3:51 AM EDT [facility] Comment:This is an appended report. These results have been appended to a previously preliminary verified report. Blood VENOUS BLOOD SPECIMEN / Unknown IP Care Team Draw / Unknown 01/09/2024 3:07 AM EDT 01/09/2024 3:14 AM EDT Ángel Martin DO HEMATOLOGY ORDERAB LES [facility] [place] [address] * (ABNORMAL) Basic Metabolic Panel (01/09/2024 3:07 AM EDT) Only the most recent of2 resultswithin the time period is included. Glucose 113 65 - 199 mg/dL 01/09/2024 3:43 AM EDT [facility] Comment:Glucose Concentratio n >=200 mg/dL plus symptoms is consistent with Diabetes Mellitus. Blood Urea Nitrogen 26(H) 10 - 20 mg/dL 01/09/2024 3:43 AM EDT [facility] Creatinine 3.44(H) 0.80 - 1.50 mg/dL 01/09/2024 3:43 AM EDT [facility] Sodium 137 135 - 145 mMol/L 01/09[facility]2024 [facility] Potassium 4.1 3.5 - 5.0 mMol/L 01/09/2024 3:43 AM EDT [facility] Chloride 100 98 - 107 mMol/L 01/09/2024 3:43 [facility] Carbon Dioxide 25 22 - 31 mMol/L 01/09/2024 3:43 AM EDT [facility] Anion Gap 12 5 - 15 mMol/L 01/09/2024 3:43 [facility] Calcium 9.1 8.5 - 10.5 mg/dL 01/09/2024 3:43 AM [facility] Est Glomerular Filtration Rate - Male 17 mL/min/1. 73 m?? 01/09/2024 3:43 AM [facility] Comment: This patient's estimated GFR was calculated using the 2020 CKD-EPI equation. The estimated GFR can vary from the measured GFR by up to 30% in the absence of rapidly changing kidney function. Assessment of the estimated GFR is not appropriate when creatinine concentrations are rapidly changing. For clinical situations in which a more precise estimate of GFR is necessary, consider alternative methods of GFR estimation such as a 24-hour urine creatinine clearance. Assignment of CKD stage 1 - 5 for patients with an eGFR near the transition point between stages may be based on clinical assessment of muscle mass and symptoms in addition to eGFR. Link: eGFR Calculator [employer] Fasting Status No 01/09/2024 3:43 AM EDT [facility] Blood VENOUS BLOOD SPECIMEN / Unknown IP Care Team Draw / Unknown 01/09/2024 3:07 AM EDT 01/09/2024 3:14 AM EDT Ángel Martin DO CHEMISTRY ORDERABL ES [facility] [place] [address] * Scan Doc: Telemetry Strips (01/08/2024 9:33 PM EDT) Only the most recent of2 resultswithin the time period is included. Narrative 01/08/2024 9:33 PM EDT Ordered by an unspecified provider. Scanning Provider MEDIA MGR SCAN EXT O RDR/RSLT * (ABNORMAL) Blood culture (01/08/2024 11:02 AM EDT) Pathologist [facility] Blood Culture Coagulase Negative Staphylococcus species(Critical) 01/13/2024 7:51 AM EDT [facility] Comment: detected by PCR Interpretation of the importance of skin prfaul such as Coag Negative Staph, Viridans Strep, Corynebacteria and other Gram Positive orgs from a single Blood Culture set requires clinical correlation. Gram Stain Anaerobic Bottle: Gram positive cocci in clusters(A) 01/13/2024 7:51 AM EDT [facility] Blood VENOUS BLOOD SPECIMEN / Unknown Venipuncture / Unknown 01/08/2024 11:02 AM EDT 01/08/2024 1:18 PM EDT Ángel Martin DO MICROBIOLOGY - BLO OD ORDERABLES [facility] [place] [address] * Magnesium (01/08/2024 11:02 AM EDT) [facility] Magnesium 0.77 0.69 - 1.07 mMol/L 01/08/2024 1:53 PM EDT [facility] Blood VENOUS BLOOD SPECIMEN / Unknown Venipuncture / Unknown 01/08/2024 11:02 AM EDT 01/08/2024 1:18 PM EDT Ángel Martin DO CHEMISTRY ORDERABL ES [facility] [place] [address] * (ABNORMAL) Hemoglobin A1c (01/08/2024 11:02 AM EDT) [facility] Hemoglobin A1c 5.8(H) 4.3 - 5.6 % 01/08/2024 1:51 PM EDT [facility] Comment: Per ADA guidelines, without clear symptoms of hyperglycemia or a random plasma glucose >199 mg/dL, a single abnormal A1c measurement cannot be used to diagnose diabetes mellitus. The diagnosis must be confirmed by either 1) a concurrent abnormal fasting plasma glucose or impaired response to oral glucose tolerance testing, or 2) an additional abnormal A1c, impaired fasting plasma glucose, or impaired response to oral glucose tolerance testing on a different day. A1c results obtained on patients with altered red blood cell turnover may not be customer loyalty representative of glycemic control. Reference Interval: 4.3 - 5.6% 5.7 - 6.4%: Consistent with prediabetes >=6.5%: Consistent with diagnosis of diabetes mellitus Estimated Average Glucose 01/08/2024 1:51 PM EDT [facility] Comment:Not Calculated. Blood VENOUS BLOOD SPECIMEN / Unknown Venipuncture / Unknown 01/08/2024 11:02 AM EDT 01/08/2024 1:18 PM EDT [facility] - 01/08/2024 1:51 PM EDT Estimated average glucose (eAG) is calculated from the equation described in: Hu DM, Faustino J, Sridhar R, et al. ??Translating the A1C assay into estimated average glucose values. ??Diabetes Care 2008:31(8):3598-1225. Additional resources are available on the ADA website (diabetes.org). Ángel Martin DO CHEMISTRY ORDERABL ES [facility] [place] [address] * (ABNORMAL) Hepatic Function Panel (01/08/2024 11:02 AM EDT) [facility] Albumin 2.8(L) 3.2 - 5.2 g/dL 01/08/2024 1:53 PM EDT [facility] Aspartate Aminotransferase 17 <=39 unit/L 01/08/2024 1:53 PM EDT [facility] Alanine Aminotransferase 17 0 - 55 unit/L 01/08/2024 1:53 PM EDT [facility] Alkaline Phosphatase 126 40 - 130 unit/L 01/08/2024 1:53 PM EDT [facility] Bilirubin, Total 0.3 <=1.3 mg/dL 01/08/2024 1:53 PM EDT [facility] Bilirubin, Direct <0.2 0.0 - 0.3 mg/dL 01/08/2024 1:53 PM EDT [facility] Protein, Total 6.4 6.1 - 8.0 g/dL 01/08/2024 1:53 PM EDT [facility] Blood VENOUS BLOOD SPECIMEN / Unknown Venipuncture / Unknown 01/08/2024 11:02 AM EDT 01/08/2024 1:18 PM EDT Ángel Martin DO CHEMISTRY ORDERABL ES [facility] [place] [address] * Urinalysis Microscopic with Reflex to Culture (01/08/2024 10:29 AM EDT) Bacteria, Urine None None /HPF 10:53 AM EDT [facility] RBC, Urine 1 0 - 3 /HPF 01/08/2024 10:53 AM EDT [facility] WBC, Urine 1 0 - 3 /HPF 01/08/2024 10:53 AM EDT [facility] Squamous Epithelial Cells, Urine 0 0 - 5 /HPF 01/08/2024 10:53 AM EDT [facility] Hyaline Casts, Urine 1 0 - 2 /LPF 01/08/2024 10:53 AM EDT [facility] Urine URINE SPECIMEN OBTAINED BY CLEAN CATCH PROCEDURE / Unknown Non Blood Collection / Unknown 01/08/2024 10:29 AM EDT 01/08/2024 10:39 AM EDT Ángel L Martin DO URINE ORDERABLES [facility] [address] [place] [address] * (ABNORMAL) Urinalysis with reflex Culture (01/08/2024 10:29 AM EDT) Glucose, Urine Dipstick Negative Negative 01/08/2024 10:53 AM EDT [facility] Protein, Urine Dipstick 30 mg/dL(A) Negative 01/08/2024 10:53 AM EDT [facility] Bilirubin, Urine Dipstick Negative Negative 01/08/2024 10:53 AM [facility] Comment:Clinical correlation required for positive Urine Bilirubin results as false positive may occur with some drugs and drug related products. If a false positive is suspected a serum total bilirubin should be considered if clinically indicated. Urobilinogen, Urine Dipstick Normal Normal, 0.2 mg/dL, 1.0 mg/dL 01/08/2024 10:53 AM [facility] pH, Urine (dipstick) 6.5 5.0 - 8.0 01/08/2024 10:53 AM [facility] Blood, Urine Dipstick Negative Negative 01/08/2024 10:53 AM [facility] Ketone, Urine Dipstick Negative Negative 01/08/2024 10:53 AM [facility] Nitrite, Urine Dipstick Negative Negative 01/08/2024 10:53 AM [facility] Leukocytes, Urine Dipstick Negative Negative 01/08/2024 10:53 AM [facility] Specific [place] Urine Automated 1.015 1.005 - 1.030 01/08/2024 10:53 AM [facility] Appearance, Urine Dipstick Clear Clear 01/08/2024 10:53 AM [facility] Color, Urine Dipstick Yellow Yellow, Dark Yellow 01/08/2024 10:53 AM [facility] Urine URINE SPECIMEN OBTAINED BY CLEAN CATCH PROCEDURE / Unknown Non Blood Collection / Unknown 01/08/2024 10:29 AM EDT 01/08/2024 10:39 AM EDT Ángel Martin DO URINE ORDERABLES Performing Organization Address City/[facility]/ZIP Co de Phone Number [facility] [place] [address] * Film Library- Storage Only DX Chest (01/08/2024 5:03 AM EDT) Narrative [facility] - 01/08/2024 5:03 AM EDT This exam is auto-finalizing. It's purpose is for storage only. Ángel Martin DO IMG FILM LIBRARY O RDERABLES Performing Organization Address [facility]/ZIP Co de Phone Number [place], [place] * External Cardiology Result (01/08/2024 4:37 AM EDT) Anatomical Region Laterality Modality Other Historical Provider EXTERNAL CARDIOLO GY RESULT * Scan Doc: Lab (11/18/2023 12:00 AM EDT) Narrative 11/18/2023 12:00 AM EDT Ordered by an unspecified provider. Scanning Provider MEDIA MGR SCAN EXT O RDR/RSLT from Last 3 Months Advance Directives Documents on File Type Date Recorded Patient Afternoon Babysitter Expl anation Advance Directives and Livin g Will 01/09/2024 2:01 PM Montse De Anda * Attempt Cardiopulmonary Resuscitation - Inpatient (Latest Code Status on File) Date Activated Date Inactivated Comments 01/08/2024 8:14 AM 01/09/2024 6:36 PM Question Answer Comments Code Status decision made by: Patient Content of discussion: I want you to tr y a little bit and see if I can come back right away. I'm okay with intubation for a day or so to reverse an underlying process * Attempt Cardiopulmonary Resuscitation - Inpatient Date Activated Date Inactivated Comments 01/08/2024 7:26 AM 01/08/2024 8:14 AM Question Answer Comments Code Status decision made by: Patient Content of discussion: code status * Attempt Cardiopulmonary Resuscitation - Inpatient Date Activated Date Inactivated Comments 11/07/2020 7:40 [...] is based on Patients wishes. Care Teams Relationship Advisor Relationship Specialty Start Date End Date Rolando Moise MD PCP - General Family Medicine 09/16/16
--- OUTSIDE RECORDS SUMMARY | 2024-01-25 13:41 | XMS_ITS | Encounter Summary ---
[facility] [place] [address] Care Team Providers Care Upper Inspector Name Role Phone Rolando Moise MD Primary Care Provider [phone] Reason for Referral * Diagnostic Test (Routine) - Authorized Specialty Diagnoses / Procedures Referred By Teodoro robertson Referred To Contact Radiology Diagnoses Infrarenal abdominal aortic aneurysm (AAA) without rupture Procedures CT Angiogram Abdomen & Pelvis w Contrast (Generic) Pascale Barboza APRN [facility] [place] [address] [place] [address] Referral ID Status Reason Start Date Expiration Date Visits Requested Visits Authorized [id number] Authorized Specialty Service Requested 06/16/2023 12/14/2024 1 1 Encounter Details Date Type Department Care Team (Late st Contact Info) Description 06/16/2023 Orders [place] [address] Pascale Barboza APRN [facility] [place] [address] Infrarenal abdominal aortic aneurysm (AAA) [...] 12:15 PM EDT Laboratory Appointment Lab [address] [place] [address] 02/02/2024 2:[address] [place] [place] [address] Pascale Barboza, RADHA [facility] [place] [address] 02/02/2024 2:30 PM EDT Office Visit Vascular Surgery at [place] [phone] Erik Gill MD [facility] [place] [address] Scheduled Orders Name Type Priority Associated Diagnoses Orde r Schedule CT Angiogram Abdomen & Pelvis w Contrast (Generic) Imaging Routine Infrarenal abdominal aortic aneurysm (AAA) without rupture Expected: 07/15/2023, Expires: 06/16/2024 documented as of this encounter Visit Diagnoses Diagnosis Infrarenal abdominal aortic aneurysm (AAA) without rupture documented in this encounter Care Teams Upper Inspector Relationship Specialty Start Date End Date Rolando Moise MD PCP - General Family Medicine 09/16/16 documented as of this encounter
--- OUTSIDE RECORDS SUMMARY | 2024-01-25 13:41 | XMS_ITS | Encounter Summary ---
Author Organization [facility] Address [facility] [place] [address] Care Team Providers Care Silviculture Forester Name Role Phone Rolando Moise MD Primary Care Provider [phone] Reason for Visit * Reason Comments Skin Check * Consultation (Routine) - Closed Specialty Diagnoses / Procedures Referred By Contac t Referred To Contact Dermatology Diagnoses Transient acantholytic dermatosis (juan diego) Rolando Moise MD [address] [place] [address] Ashkan Eason MD [address] [place] [address], [facility] [place] [address] Referral ID Status Reason Start Date Expiration Date V isits Requested Visits Authorized [id number] Closed Consult, Test & Treat 06/13/2022 06/13/2023 1 1 Encounter Details Date Type Department Care Team (Late st Contact Info) Description 07/18/2022 11:00 AM EDT Office Visit Dermatology at [address] [address] Ashkan Eason MD [address] [place] [address], [facility] [place] [address] Pruritus; Xerosis cutis Social History [...] a daily basis to the legs. Obtain [id number] 2. Begin wearing Tubigrip stockings during the daytime taking off at night to help reduce his lowerextremity edema. Pruritus, hindu scalp 1. No primary neurologic findings 2. [...] nightly to symptomatic in left temporal scalp.. [id number] mL with 5 refills 6. Return to clinic in another month for repeat check. Prescriptions will be sent to the [facility]. CC: Rolando Moise MD documented in this encounter Plan of Treatment Upcoming Encounters Date Type Department Care Team (Late st Contact Info) Description 02/02/2024 12:15 PM EDT Laboratory Appointment Lab [address] [place] [address] 02/02/2024 2:[address] Scan at [place] [phone] Pascale Barboza, OPERATIONS RESEARCH DIRECTOR [facility] [place] [address] 02/02/2024 2:30 PM EDT Office [place] [address] Erik Gill MD [facility] [place] [address] documented as of this encounter Visit Diagnoses Diagnosis Pruritus Unspecified pruritic disorder Xerosis cutis Other specified disease of sebaceous glands documented in this encounter Care Teams Silviculture Forester Relationship Specialty Start Date End Date Rolando Moise MD PCP - General Family Medicine 09/16/16 documented as of this encounter
--- OUTSIDE RECORDS SUMMARY | 2024-01-25 13:41 | XMS_ITS | Encounter Summary ---
Author Organization [facility] Address [address] [place] [address] Care Team Providers Care Farm Supervisor Name Role Phone Unavailable Primary Care Provider Unavailabl e Encounter Details Date Type Department Care Team (Late st Contact Info) Description 12/12/2011 Results Only [facility] Laboratory Services - [facility] [place] [address] [place] [address] [id number] Sharif Salcedo MD [address] [place] [id number] Social History Tobacco Use Types Packs/Day Years [...] ? CALI THOMPSON ? Accession #: ? [id number] ? : ? 1935 (Age: 76) ??M ? Collect Date: ? 12/12/2011 ? Location: ? [facility] ? Receive Date: ? 12/13/2011 ? Provider: SHARIF SALCEDO MD Copy to: ARELY VICKERS MD ? Final Pathologic Diagnosis: ? Colon, 35 cm, biopsy: - Cauterized colonic tissue, favor hyperplastic polyp. ??See comment. Comment: ? Deeper sections have been examined. ??(Dr. Bal)/[facility] Document reviewed and electronically signed by: EFRAÍN DEY [facility] Report ??Date: 12/17/2011 13:24 By [...] in toto in a single cassette. ??(Tiffanie Prieto)/[facility] End of Report KAILASH SLAUGHTER 12/12/2011 12/13/2011 8:1 7 EDT Sharif Salcedo MD PATHOLOGY ORDERABLE S KAILASH SLAUGHTER [address] [place] [address] documented in this encounter Visit Diagnoses Not on filedocumented in this encounter
--- OUTSIDE RECORDS SUMMARY | 2024-01-25 13:41 | XMS_ITS | Encounter Summary ---
Author Organization [facility] [place] [address] Care Team Providers Care Overhauler Helper Name Role Phone Rolando Moise MD Primary Care Provider [phone] Encounter Details Date Type Department Care Team (Late st Contact Info) Description 07/25/2023 Telephone [place] [address] Migue Ahn Social History Tobacco [...] encounter Miscellaneous Notes * Telephone Encounter - Migeu Ahn - 07/25/2023 8:40 AM EDT LVM to reschedule CT and new patient appointment with Dr. Head on 09/02 documented in this encounter Plan of Treatment Upcoming Encounters Date Type Department Care Team (Late st Contact Info) Description 02/02/2024 12:15 PM EDT Laboratory Appointment Lab [address] [phone] 02/02/2024 2:[address] [place] [address] Pascale Barboza APRN [facility] [place] [address] 02/02/2024 2:30 PM EDT Office [place] [address] Erik Gill MD [facility] [place] [address] documented as of this encounter Visit Diagnoses Not on filedocumented in this encounter Care Teams Overhauler Helper Relationship Specialty Start Date End Date Rolando Moise MD PCP - General Family Medicine 09/16/16 documented as of this encounter
--- OUTSIDE RECORDS SUMMARY | 2024-01-25 13:41 | XMS_ITS | Encounter Summary ---
Author Organization [facility] [place] [address] Care Team Providers Care Calibration Laboratory Technician Name Role Phone Rolando Moise MD Primary Care Provider [phone] Reason for Visit * Auth/Cert (Routine) Specialty Diagnoses / Procedures Referred By Teodoro robertson Referred To Contact Diagnoses Hypoglycemia Hypoglycemia Procedures EMERGENCY IPI Shantelle Longo [facility] [place] [address] [facility] Referral ID Status Reason Start Date Expiration Date Visits Re quested Visits Authorized [id number] 1 1 Encounter Details Date Type Department Care Team (Latest Contact Info) Description 01/08/2024 6:54 AM EDT - 01/09/2024 4:36 PM EDT Hospital Encounter Medical Special Care Unit Level 3 [place] [id number] Ángel Martin [facility] [place] [address] Shantelle Longo [facility] [address] Atrial fibrillation, unspecified type Discharge Disposition: Home Social History Tobacco Use Types Packs/Day Years Used Date Smoking Tobacco: Former Pipe Q uit: 02/07/2017 Smokeless Tobacco: Never Tobacco Cessation:Counseling Given: No Alcohol Use Standard Drinks/Week Comments No 0 (1 standard drink = 0.6 oz pur e alcohol) [facility] Utilities Answer Date Recorded In the [...] any time in the past 12 m [facility], were you homeless or living in a skilled nursing (including now)? No 01/08/2024 DH IPV Inpatient [...] Mass Index 28.19 01/08/2024 6:58 AM EDT documented in this encounter Discharge Summaries * Waqas Garcia MD - 01/09/2024 12:15 PM EDT Discharge Summary Patient Name: Cali Thompson Patient Age: 88 y.o. Language: Korean Race: White Ethnicity: Not nor Admit date: 01/08/2024 Discharge date and time: 01/09/2024 Attending Physician: Shantelle Longo DO Discharge Physician: Waqas Garcia MD (Resident) ID: Cali Thompson is a 88 y.o. male with hx of Insulin-dependent DMII, CKD IV, CHF, AAA s/p repair, L Scrotal varicocele, who presented with hypoglycemia and bradycardia suspected 2/2 insulin overdose. Patient responded well to oral glucose replacement and external rewarming with blankets and was discharged home in stable condition. Follow-up Recommendations for Providers: Medication Reconciliation Patient discharged on reduced insulin regimen. Re-assess insulin needs. Patient was assessed to have reduced insulin requirements at home. Patient's low A1C of 5.8% suggests he is often having low blood glucose levels at home. Patient's home insulin was adjusted to the following regimen. 2 . Review home blood sugar readings. Discharge Insulin regimen: Insulin Glargine (Semglee) 5u QAM (previously 25u) Insulin Aspart (Novalog) 3u TID with meals (previously 9u) 3. Ensure follow up with Urology. Patient reports he has scheduled followup on 01/21/24 for evaluation and treatment of varicocele FYI: Patient had 1 blood cultures positive for Coagulase Negative Staph. He never received antibiotics and remained afebrile, HDS, and without symptoms since arrival so this was thought to be contaminant. Pending Studies and Lab Data: none No current labs Discharge Diagnoses (Hospital Problems) and Secondary Diagnoses (Chronic Problems): Active Hospital Problems Diagnosis Hypoglycemia Resolved Hospital Problems No resolved problems to display. 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 male with hx of Insulin-dependent DMII, CKD IV, CHF, AAA s/p repair, L Scrotal varicocele, who presents with hypoglycemia and bradycardia. Patient was in usual state of health until the evening of 01/08/24 after which he awoke in a full-body sweat. Partner, Montse, at bedside found him difficult to rouse. EMS was called and POC BG was found to be 20. Patient and partner deny changes to home insulin regimen, although patient states he doesn't know anything about his medications and that they are all in the computer. Montse states that patient has not been eating all of his meals recently. In the field patient received 250ml D10. Patient was also found to be bradycardic in the field into the 40's and EKG demonstrated sinus bradycardia. Upon arrival to OSH ([facility]) patient had HR in the 40's, normotensive, BG in 200's. Physical exam wasreported as benign. Bradycardia and hypoglycemia were assessed to be possibly due to bacteremia vs rnal failure vs hepatic failure vs medication use. Patient was NOT treated empirically for sepsis and did not receive antibiotics. EKG demonstrated sinus bradycardia with 1st degree heart block and prolonged Qtc ~[address] changes. CXR did not demonstrate focal pneumonia nor pulmonary edema. CMP demonstrated mild elevation of creatinine (creatinine of 4.1 with baseline ~3.5). VBG, Lactate, BNP, Troponin, Serum Toxicology were all within normal limits. Patient was transferred to [facility] due to No beds available at [facility]. On exam patient reports back pain and lower abdominal pain with L scrotal tenderness (location of known varicocele). Patient reports waking up soaked but denies other recollection of recent events.Patient reports constipation. Denies Headache, Chest pain, Nausea/Emesis, Diarrhea. Review of systems otherwise negative. Hospital Course: Cali Thompson was admitted to the Hospital Medicine Service on 01/08/2024. The following issues wereaddressed and he was discharged on 01/09/2024. #Insulin-dependent Diabetes #Hypoglycemia Patient arrived euglycemia following D10 administration at OSH. Patient's home insulin regimen was held: HOLD home insulin regimen (Glargine 25u QAM + Lispro 9u TID with meals). Patient was started on Glargine 6 and sensitive sliding scale. Patient was found to have A1C 5.8% signifincantly lower than goal for his age group. Patient was found to have decreased insulin needs with approximate today daily requirement of 15 units. Suspect due to reported decline in total po intake and worsening renal function over recent years he is requiring less insulin (yet was taking same regimen as he has fora while). Patient was discharged on new insulin regimen: Insulin Glargine (Semglee) 5u QAM (previously 25u) Insulin Aspart (Novalog) 3u TID with meals (previously 9u) C/w Alogliptin 6.25mg Daily (renal dosing) Patient was not a candidate for Metformin or Jardiance due to renal function and these medications were not initiated. #Bradycardia (resolved) -Resolved upon admission and completion of transfer. Initially metoprolol was held for 24h and subsequently resumed without incident. Suspect bradycardia noted at OSH was due to profound hypoglycemiareported at 20. #Hypothermia (resolved) -passive external warming blanket to core temperature 37 successful with return to normal core bodytemperature within 4 hours after admission. Suspect this was due to above. #Back Pain #Varicocele #Abdominal Pain #Chronic Constipation No evidence of testicular torsion or hernia strangulation -Miralax QD -Senna BID -Goal of 1 BM QD -Patient has scheduled follow up with urology on 01/21/24 for varicocele -Tylenol Scheduled -Spot dose oxycodone was offered, but patient declined use of this medication. -HOLD Toradol (previous experience of constipation and severe dizziness upon standing) -HOLD NSAIDs (for apixaban and renal function) #Afib -c/w amiodarone -c/w apixaban Procedures: Operations: * No surgery found * Important Studies and Lab Data: DISCHARGE BASIC LABS: Recent Labs 01/09/24 0307 01/08/24 1102 WBC 13.93* 11.93* HGB 11.4* 11.3* HCT 35.9* 36.0* PLATELET 332 287 Recent Labs 01/09/24 0307 01/08/24 1102 NA 137 136 K 4.1 3.7 CL 100 103 CO2 25 22 BUN 26* 23* CREATININE 3.44* 3.10* CALCIUM 9.1 8.5 MAGNESIUM -- 0.77 Recent Labs 01/08/24 1102 BILITOT 0.3 BILIDIR <0.2 AST 17 ALT 17 ALKPHOS 126 No results for input(s): INR, PTT in the last 168 hours. Recent Labs 01/08/24 1102 HA1C 5.8* No results for input(s): TSH in the last 168 hours. No results for input(s): HDL, LDLCHOL, CHOLHDL, TRIG, CHLPL in the last 168 hours. Microbiology: Blood Culture Coagulase Negative Staphylococcus species Critical (CRIT) detected by PCR Interpretation of the importance of skin praful such as Coag Negative Staph, Viridans Strep, Corynebacteria and other Gram Positive orgs from a single Blood Culture set requires clinical correlation. Gram Stain Abnormal Anaerobic Bottle: Gram positive cocci in clusters [facility]24 No acute process Discharge Conditions/Prognosis: Upon discharge the pt is hemodynamically stable, afebrile, fully ambulatory withou requiring supplemental oxygen, holding down food/drink, and pain controlled with stable oral regimen. Vital Signs: Last value Range last 24 hrs Temperature Temp: 36.4 ??C (97.5 ??F) Temp: [36.1 ??C (96.9 ??F)-36.9 ??C (98.5 ??F)] Heart Rate Heart Rate: 63 Heart Rate: [63-78] Blood Pressure BP: 115/76 BP: (109-152)/(57-77) Respiratory Rate Resp: 16 Resp: [16-20] SpO2 SpO2: 98 % SpO2: [93 %-98 %] Exam: Gen: No acute distress, resting comfortably in bed. HEENT: PERRLA, EOMI, no icterus, MMM CV: Regular rate and rhythm, no murmurs/rubs/gallops Pulm: Normal respiratory effort, CTA with good air entery bilaterally, no crackles. Abd: Mild distention. Mild LLQ tenderness to deep palpation. Soft. No guarding or rebound. Ext: No pedal edema. No gross abnormalities. : L scrotal tenderness to palpation without skin changes or overlying erythema. Mild distention of vascular when standing. Neuro: Cranially nerves intact. Moving all four extremities. AAOx3 Discharge to: home without services Discharge Medications: Your Medications Continued medications with new dosing Dose Details insulin aspart 100 unit/mL Solution Commonly known as: NovoLOG Inject 3 Units subcutaneously 3 times daily (with meals). What changed: See the new instructions. 3 Units Quantity: 3 mL Refills: 12 insulin glargine-yfgn 100 unit/mL Solution Commonly known as: Semglee Inject 5 Units subcutaneously daily. What changed: how much to take when to take this 5 Units Quantity: 5 mL Refills: 3 Continued medications, unchanged Dose Details acetaminophen 500 mg tablet Commonly known as: Tylenol Take 1,000 mg by mouth. 1,000 mg Refills: 0 allopurinoL 100 mg tablet Commonly known as: Zyloprim Take 50 mg by mouth. 50 mg Refills: 0 alogliptin 6.25 mg tablet Commonly known as: Nesina 6.25 mg. 6.25 mg Refills: 0 AMIOdarone 200 mg tablet Commonly known as: Pacerone Take 1 tablet by mouth daily. Take 2 tablet TWICE a DAY for 7days. Then decrease to 1 tablet ONCE aDAY 200 mg Quantity: 30 tablet Refills: 11 amLODIPine 2.5 mg tablet Commonly known as: Norvasc Take 1 tablet by mouth daily. 1 tablet Refills: 0 apixaban 2.5 mg tablet Commonly known as: Eliquis Take 1 tablet by mouth 2 times daily. 2.5 mg Quantity: 60 tablet Refills: 3 atorvastatin 40 mg tablet Commonly known as: Lipitor Take 1 tablet by mouth every evening. 1 tablet Refills: 0 betamethasone dipropionate 0.05 % Cream Commonly known as: Maxivate APPLY SMALL AMOUNT TOPICALLY TO AFFECTED AREA TWICE A DAY NEEDED FOR ITCHING/RASH Refills: 0 calciTRIoL 0.25 mcg capsule Commonly known as: Rocaltrol 0.25 mcg. 0.25 mcg Refills: 0 cholecalciferoL 1,000 unit tablet Commonly known as: Vitamin D3 Take 1 tablet by mouth daily. 1 tablet Refills: 0 cyanocobalamin (Vitamin B-12) 1,000 mcg tablet Commonly known as: Vitamin B-12 Take 1 tablet by mouth daily. 1 tablet Refills: 0 furosemide 80 mg tablet Commonly known as: Lasix 80 mg. 80 mg Refills: 0 Insulin Syringe-Needle U-100 0.3 mL 31 gauge x 5/16 Syringe 1 Box by [facility].(Non-Drug; Combo Route) route as needed. 1 .Box Quantity: 90 Syringe Refills: 3 lisinopriL 5 mg tablet Commonly known as: Zestril Take 1 tablet by mouth daily. 1 tablet Refills: 0 magnesium oxide 400 mg (241.3 mg magnesium) Tablet Commonly known as: Mag-Ox Take 1 tablet by mouth 2 times daily. 1 tablet Refills: 0 metoprolol succinate XL 50 mg ER 24 hr tablet Commonly known as: Toprol-XL Take 1 tablet by mouth daily. 1 tablet Refills: 0 nitroGLYcerin 0.4 mg sublingual tablet Commonly known as: Nitrostat Place 1 tablet under the tongue every 5 minutes as needed for Chest pain. 0.4 mg Quantity: 25 tablet Refills: 1 tamsulosin 0.4 mg capsule Commonly known as: Flomax Take 0.4 mg by mouth daily. 0.4 mg Refills: 0 STOPPED Medications insulin aspart protamine-insulin aspart 70/30 100 unit/mL (70-30) Solution Commonly known as: novoLOG Mix 70-30 insulin detemir U-100 100 unit/mL Solution Commonly known as: Levemir insulin glargine 100 unit/mL Solution Commonly known as: Lantus;Semglee insulin lispro 100 unit/mL Insulin Pen Commonly known as: humaLOG KwikPen insulin lispro 100 unit/mL Solution Commonly known as: HumaLOG Updated Allergies/ADRs: No Known Allergies Instructions Given to Patient at Discharge: Patient Instructions Instructions on Discharge to Home Why you were hospitalized - You were hospitalized with low blood sugar. We held your normal insulinand gave you a reduced dose. You will resume your home insulin regimen at a REDUCED DOSE to ensure you do not have additional low sugars. CHECK YOUR BLOOD SUGAR AT LEAST ONCE A DAY. If you only check once a day, check your sugars in the morning when you first wake up. This is to make sure your sugars are not too high (above 300) or toolow (below 100). If your blood sugars are too low, make sure you eat something and consider skipping your next insulin dose. If your blood sugars are too high for 2 checks in a row, increase your morning long-acting insulin by 1 unit and call your primary care provider for further recommendations. YOUR NEW INSULIN REGIMEN; -Insulin Glargine (long-acting) 5 units ONCE A DAY -Insulin Aspart (Novalog) 3 units THREE TIMES A DAY WITH MEALS. If you plan on skipping a meal, also skip your insulin dose. Call your doctor or seek medical attention if you develop the following - chest pain, shortness of breath, feeling dizzy upon standing, passing out, diarrhea, constipation lasting longer than 2 days,fevers (temperature over 100.3), chills, abdominal pain, vomiting, difficulty or discomfort when urinating, bloody or black bowel movements, or any other acute or concerning symptom. Activity level - No restrictions Diet - No change in previous diet Driving - As before hospitalization Shower/Bath - As before hospitalization Wound Care - None Home Oxygen therapy - not indicated Follow-up: PLEASE CALL TO SCHEDULE FOLLOW UP WITH YOUR PRIMARY CARE PROVIDER FOR A POST- HOSPITAL CHECK Future Appointments Date Time Provider Department Center 02/02/2024 12:15 PM LAB, [facility] L Lab [facility] 02/02/2024 2:[address] [facility] [address] [facility] [address] [facility] Rad 02/02/2024 2:30 PM Erik Gill MD [facility] V SURG [facility] Your Inpatient Medical Team at [facility] Name(s) of your inpatient provider(s): Shantelle Longo, DO Your Primary Care Provider: Rolando Moise MD [phone] For questions regarding this document or issues relating to this hospitalization on the Medical Service, please contact your inpatient physician through the [facility] Final Application Reviewer . Issues afterhours and on weekends will be handled by the Hospitalist staff on-call. General Instructions None Future Appointments and Orders Future Appointments and Orders Future Appointments Provider Department Dept Phone 02/02/2024 12:15 PM LAB, THREE L Lab 3L [facility] Arrive at: [facility] [phone] 02/02/2024 2:[address] [facility] [address] CT Scan at [facility] Arrive at: [facility] RADIOLOGY [phone] Please arrive at the Lab 1 Hour and 15 Minutes prior to your scheduled time if your labs need to betaken. 02/02/2024 2:30 PM Erik Gill MD Vascular Surgery at [facility] Arrive at: [facility] 3[facility] [phone] Check-in: [facility]. Provider Contact Information: Rolando Moise MD [address] / [facility] [phone] Discharge References/Attachments: Discharge References/Attachments None Associated attestation - Shantelle Longo DO - 01/10/2024 11:39 AM EDT Please see Waqas Garcia MD???s note for details of the patient history of presentation and data. I have seen and examined the patient myself and reviewed pertinent studies. I have discussed, reviewed and agree with the documentation below. documented in this encounter Discharge Instructions * Patient Instructions* Waqas Garcia MD - 01/09/2024 1:58 PM EDT Instructions on Discharge to Home Why you were hospitalized - You were hospitalized with low blood sugar. We held your normal insulinand gave you a reduced dose. You will resume your home insulin regimen at a REDUCED DOSE to ensure you do not have additional low sugars. CHECK YOUR BLOOD SUGAR AT LEAST ONCE A DAY. If you only check once a day, check your sugars in the morning when you first wake up. This is to make sure your sugars are not too high (above 300) or toolow (below 100). If your blood sugars are too low, make sure you eat something and consider skipping your next insulin dose. If your blood sugars are too high for 2 checks in a row, increase your morning long-acting insulin by 1 unit and call your primary care provider for further recommendations. YOUR NEW INSULIN REGIMEN; -Insulin Glargine (long-acting) 5 units ONCE A DAY -Insulin Aspart (Novalog) 3 units THREE TIMES A DAY WITH MEALS. If you plan on skipping a meal, also skip your insulin dose. Call your doctor or seek medical attention if you develop the following - chest pain, shortness of breath, feeling dizzy upon standing, passing out, diarrhea, constipation lasting longer than 2 days,fevers (temperature over 100.3), chills, abdominal pain, vomiting, difficulty or discomfort when urinating, bloody or black bowel movements, or any other acute or concerning symptom. Activity level - No restrictions Diet - No change in previous diet Driving - As before hospitalization Shower/Bath - As before hospitalization Wound Care - None Home Oxygen therapy - not indicated Follow-up: PLEASE CALL TO SCHEDULE FOLLOW UP WITH YOUR PRIMARY CARE PROVIDER FOR A POST- HOSPITAL CHECK Future Appointments Date Time Provider Department Center 02/02/2024 12:15 PM LAB, THREE L Lab 3L [facility] 02/02/2024 2:[address] [facility] [address] [facility] [address] [facility] Rad 02/02/2024 2:30 PM Erik Gill MD [facility] V SURG [facility] Your Inpatient Medical Team at [facility] Name(s) of your inpatient provider(s): Shantelle Longo, DO Your Primary Care Provider: Rolando Moise MD [phone] For questions regarding this document or issues relating to this hospitalization on the Medical Service, please contact your inpatient physician through the [facility] Final Application Reviewer . Issues afterhours and on weekends will be handled by the Hospitalist staff on-call. documented in this encounter Medications at Time of Discharge Medication Sig Dispensed Refills Start Date End Date insulin aspart (NovoLOG) 100 unit/mL Solution Inject 3 Units subcutaneously 3 times daily (with meals). 3 mL 12 01/09/2024 insulin glargine-yfgn (Semglee) 100 unit/mL Solution Inject 5 Units subcutaneously daily. 5 mL 3 01/09/2024 acetaminophen (Tylenol) 500 mg tablet Take 1,000 mg by mouth. 12/31/2023 allopurinoL (Zyloprim) 100 mg tablet Take 50 mg by mouth. 12/26/2023 alogliptin (Nesina) 6.25 mg tablet 6.25 mg. 09/26/2021 amLODIPine (Norvasc) 2.5 mg tablet Take 1 tablet by mouth daily. 04/01/2022 betamethasone dipropionate (Diprolene) 0.05 % Cream APPLY SMALL AMOUNT TOPICALLY TO AFFECTED AREA TWICE A DAY NEEDED FOR ITCHING/RASH 08/31/2021 calciTRIoL (Rocaltrol) 0.25 mcg capsule 0.25 mcg. 05/21/2022 cyanocobalamin, Vitamin B-12, (Vitamin B-12) 1,000 mcg tablet Take 1 tablet by mouth daily. 02/05/2022 furosemide (Lasix) 80 mg tablet 80 mg. 11/12/2021 magnesium oxide (Mag-Ox) 400 mg (241.3 mg magnesium) Tablet Take 1 tablet by mouth 2 times daily. 04/01/2022 atorvastatin (Lipitor) 40 mg tablet Take 1 tablet by mouth every evening. 05/21/2022 lisinopriL (Zestril) 5 mg tablet Take 1 tablet by mouth daily. 04/01/2022 metoprolol succinate XL (Toprol-XL) 50 mg ER 24 hr tablet Take 1 tablet by mouth daily. 06/07/2022 cholecalciferol (Vitamin D3) 1,000 unit tablet Take 1 tablet by mouth daily. 06/12/2022 apixaban (Eliquis) 2.5 mg Tablet Take 1 tablet by mouth 2 times daily. 60 tablet 3 11/09/2020 Insulin Syringe-Needle U-100 0.3 mL 31 gauge x 5/16 Syringe 1 Box by [facility].(Non-Drug; Combo Route) route as needed. 90 Syringe 3 11/09/2020 AMIOdarone (Pacerone) 200 mg Tablet Take 1 tablet by mouth daily. Take 2 tablet TWICE a DAY for 7days. Then decrease to 1 tablet ONCE a DAY 30 tablet 11 11/09/2020 nitroGLYcerin (NITROSTAT) 0.4 mg Tablet, Sublingual Place 1 tablet under the tongue every 5 minutes as needed for Chest pain. 25 tablet 1 02/05/2017 tamsulosin (FLOMAX) 0.4 mg Capsule, Sust. Release 24 hr Take 0.4 mg by mouth daily. documented as of this encounter Progress Notes * Shantelle Longo DO - 01/09/2024 4:36 PM EDT Hospital Medicine - Attending Day of Discharge Documentation Discharge diagnosis Active Hospital Problems Diagnosis Hypoglycemia Resolved Hospital Problems No resolved problems to display. Secondary Issues Active Non-Hospital Problems Diagnosis NSTEMI (non-ST elevated myocardial infarction) HTN (hypertension) Diabetes mellitus type 2, noninsulin dependent Atrial fibrillation Congestive heart failure Type 2 diabetes mellitus Chest pain ASCVD (arteriosclerotic cardiovascular disease) Cardiomyopathy, ischemic AAA (abdominal aortic aneurysm) S/P hernia repair I have personally seen and examined the patient and they are ready for discharge. Select the appropriate statement that describes your involvement and care and omit the other: I spent <30 minutes (Day of Discharge Code 11849) involved in the final examination of the patient, discussion of the hospital stay, instructions for continuing care to all relevant caregivers, and preparation of discharge records, prescriptions and referral forms. Plans Discharge to home Follow-up to be scheduled with PCP Please see the Discharge Summary for complete details of any medication changes and additional plans. * Xena Emerson RN - 01/09/2024 4:19 PM EDTSummary: Discharge Patient discharged and left the unit at 1600 accompanied by significant other. On RA and on wheelchair. ASV reviewed with patient and provided. All belongings were returned - both dentures, pants, shirt and footwear. * Екатерина Archibald RN - 01/08/2024 7:45 AM EDT 01/08/24 0655 am Pt arrived via EMS to room 382 from OSH. Pt A/O, appropriate with needs and questions. Able to stand and pivot from stretcher to bed. Blood sugar on arrival to unit was 184. VS checked, unable to obtain oral or axillary temp. Rectal temp was 34.8. Day nurse to notify MD team. Placed on all monitorsand call montanez given to pt, he states understanding. Will continue to monitor. documented in this encounter H&P Notes * Waqas Garcia MD - 01/08/2024 7:48 AM EDT Images from the original note were not included. Hospital Medicine Admission History and Physical Patient Name: CALI THOMPSON Date of : 1935 Age: 88 y.o. Hospital Admit Date: 01/08/2024 Inpatient Attending: Ángel Martin DO PCP: Rolando Moise MD Presenting Diagnosis/Chief Complaint: Hypoglycemia History of Present Illness: Cali Thompson is a 88 y.o. male with hx of Insulin-dependent DMII, CKD IV, CHF, AAA s/p repair, L Scrotal varicocele, who presents with hypoglycemia and bradycardia. Patient was in usual state of health until the evening of 01/08/24 after which he awoke in a full-body sweat. Partner, Montse, at bedside found him difficult to rouse. EMS was called and POC BG was found to be 20. Patient and partner deny changes to home insulin regimen, although patient states he doesn't know anything about his medications and that they are all in the computer. Montse states that patient has not been eating all of his meals recently. In the field patient received 250ml D10. Patient was also found to be bradycardic in the field into the 40's and EKG demonstrated sinus bradycardia. Upon arrival to OSH ([facility]) patient had HR in the 40's, normotensive, BG in 200's. Physical exam wasreported as benign. Bradycardia and hypoglycemia were assessed to be possibly due to bacteremia vs rnal failure vs hepatic failure vs medication use. Patient was NOT treated empirically for sepsis and did not receive antibiotics. EKG demonstrated sinus bradycardia with 1st degree heart block and prolonged Qtc ~[address] changes. CXR did not demonstrate focal pneumonia nor pulmonary edema. CMP demonstrated mild elevation of creatinine (creatinine of 4.1 with baseline ~3.5). VBG, Lactate, BNP, Troponin, Serum Toxicology were all within normal limits. Patient was transferred to [facility] due to No beds available at [facility]. On exam patient reports back pain and lower abdominal pain with L scrotal tenderness (location of known varicocele). Patient reports waking up soaked but denies other recollection of recent events.Patient reports constipation. Denies Headache, Chest pain, Nausea/Emesis, Diarrhea. Review of systems otherwise negative. Past Medical History: Past Medical History: Diagnosis Date AAA (abdominal aortic aneurysm) 04/12/2011 HTN (hypertension) 04/12/2011 S/P hernia repair 04/12/2011 Type 2 diabetes mellitus Patient Active Problem List Diagnosis Code AAA (abdominal aortic aneurysm) I71.40 HTN (hypertension) I10 Diabetes mellitus type 2, noninsulin dependent E11.9 S/P hernia repair Z98.890, Z87.19 NSTEMI (non-ST elevated myocardial infarction) I21.4 Cardiomyopathy, ischemic I25.5 ASCVD (arteriosclerotic cardiovascular disease) I25.10 Chest pain R07.9 Type 2 diabetes mellitus E11.9 Atrial fibrillation I48.91 Congestive heart failure I50.9 Past Surgical History: Past Surgical History: Procedure Laterality Date PRG PLACEMENT EXTENSION PRGSTHESIS FOR ENDOVASC REPAIR AAA 04/12/2011 @PLACE EXT EVG INTRARENAL AORTIC\ILIAC ARTERY ANEURYSM, [facility] AAA REPAIR, 1ST VESSEL, EXTENSION PROSTH 04/12/2011 @EVG-PLACEMENT, CUFF OR EXT. AORTIC OR ILIAC ANEURYSM REPAIR, GORE performed by ACACIA BRYANT at [facility] OR PRO AAA REPAIR, MODULR BIFUR PROSTH, 2-DOCK 04/12/2011 @EVG, AAA, W\ MODULAR BIFURCATED PROS. W\ 2 DOCKING LIMBS performed by ACACIA BRYANT at [facility] OR PRO AAA REPR, EXPOSE FEMORAL ART, GROIN INCIS 04/12/2011 @EXPOSURE, OPEN FEM. ARTERY FOR ENDOVASCULAR PROSTHESIS, GROIN-FABIANA performed by ACACIA BRYANT at [facility] OR PRO ENDOVASC REPAIR INFRARENAL AAA/DISSECTION S&I 04/12/2011 @EVG, INFRARENAL AAA OR DISSECTION, S&I performed by ACACIA BRYANT at [facility] OR Social History: Social History Socioeconomic History Marital status: Spouse name: Not on file Number of children: Not on file Years of education: Not on file Highest education level: Not on file Occupational History Not on file Tobacco Use Smoking status: Former Types: Pipe Quit date: 02/07/2017 Years since quittin.9 Smokeless tobacco: Never Substance and Sexual Activity Alcohol use: No Drug use: No Sexual activity: Never Other Topics Concern Do You live alone? No Tobacco in Home Not Asked Social History Narrative Not on file Social Determinants of Health Financial Resource Strain: Not on file Food Insecurity: Not on file Transportation Needs: Not on file Physical Activity: Not on file Intimate Partner Violence: Not on file Housing Stability: Not on file Family History: No family history on file. Allergies: No Known Allergies Medications: Medications Prior to Admission Medication Sig Dispense Refill Last Dose acetaminophen (Tylenol) 500 mg tablet Take 1,000 mg by mouth. allopurinoL (Zyloprim) 100 mg tablet Take 50 mg by mouth. insulin glargine-yfgn (Semglee) 100 unit/mL Solution Inject subcutaneously. alogliptin (Nesina) 6.25 mg tablet 6.25 mg. amLODIPine (Norvasc) 2.5 mg tablet Take 1 tablet by mouth daily. betamethasone dipropionate (Diprolene) 0.05 % Cream APPLY SMALL AMOUNT TOPICALLY TO AFFECTED AREA TWICE A DAY NEEDED FOR ITCHING/RASH calciTRIoL (Rocaltrol) 0.25 mcg capsule 0.25 mcg. cyanocobalamin, Vitamin B-12, (Vitamin B-12) 1,000 mcg tablet Take 1 tablet by mouth daily. furosemide (Lasix) 80 mg tablet 80 mg. insulin aspart U-100 (NovoLOG) 100 unit/mL Solution INJECT 9 UNITS SUBCUTANEOUSLY THREE TIMES A DAYBEFORE MEALS - DISCARD OPEN VIALS AFTER 28 DAYS. REFRIGERATE UNOPENED VIALS insulin detemir U-100 (Levemir) 100 unit/mL Solution INJECT 25 UNITS SUBCUTANEOUSLY EVERY MORNING -DISCARD OPEN VIAL AFTER 42 DAYS. REFRIGERATE UNOPENED VIALS. magnesium oxide (Mag-Ox) 400 mg (241.3 mg magnesium) Tablet Take 1 tablet by mouth 2 times daily. atorvastatin (Lipitor) 40 mg tablet Take 1 tablet by mouth every evening. lisinopriL (Zestril) 5 mg tablet Take 1 tablet by mouth daily. metoprolol succinate XL (Toprol-XL) 50 mg ER 24 hr tablet Take 1 tablet by mouth daily. cholecalciferol (Vitamin D3) 1,000 unit tablet Take 1 tablet by mouth daily. apixaban (Eliquis) 2.5 mg Tablet Take 1 tablet by mouth 2 times daily. 60 tablet 3 insulin glargine (Lantus) Solution Inject 10 Units subcutaneously daily. 1 vial 12 insulin lispro (HumaLOG;Admelog) 100 unit/mL Solution Inject 4 Units subcutaneously 3 times daily (with meals). 1 vial 12 Insulin Syringe-Needle U-100 0.3 mL 31 gauge x 5/16 Syringe 1 Box by [facility].(Non- Drug; Combo Route) route as needed. 90 Syringe 3 insulin lispro (humaLOG KwikPen) Insulin Pen Inject 4 Units subcutaneously 3 times daily (with meals). Indications: type 2 diabetes mellitus 1500 vial 3 AMIOdarone (Pacerone) 200 mg Tablet Take 1 tablet by mouth daily. Take 2 tablet TWICE a DAY for 7days. Then decrease to 1 tablet ONCE a DAY 30 tablet 11 insulin aspart protamine-insulin aspart 70/30 (novoLOG Mix 70-30) Solution Inject 10 Units subcutaneously daily. 15 mL 3 nitroGLYcerin (NITROSTAT) 0.4 mg Tablet, Sublingual Place 1 tablet under the tongue every 5 minutesas needed for Chest pain. 25 tablet 1 tamsulosin (FLOMAX) 0.4 mg Capsule, Sust. Release 24 hr Take 0.4 mg by mouth daily. PHYSICAL EXAM: Last value Range last 24 hrs Temperature Temp: (!) 34.8 ??C (94.6 ??F) Temp: [34.8 ??C (94.6 ??F)] Heart Rate Heart Rate: 62 Heart Rate: [62-69] Blood Pressure BP: 157/79 BP: (157)/(79) Respiratory Rate Resp: 14 Resp: [14-18] SpO2 SpO2: 98 % SpO2: [98 %-99 %] No intake/output data recorded. -Last BM: Gen: No acute distress, resting comfortably in bed. HEENT: PERRLA, EOMI, no icterus, MMM CV: Regular rate and rhythm, no murmurs/rubs/gallops Pulm: Normal respiratory effort, CTA with good air entery bilaterally, no crackles. Abd: Mild distention. Mild LLQ tenderness to deep palpation. Soft. No guarding or rebound. Ext: No pedal edema. No gross abnormalities. : L scrotal tenderness to palpation without skin changes or overlying erythema. Mild distention of vascular when standing. Neuro: Cranially nerves intact. Moving all four extremities. AAOx3 LABS: No results for input(s): WBC, HGB, HCT, PLATELET in the last 168 hours. No results for input(s): NA, K, CL, CO2, BUN, CREATININE in the last 168 hours. No results for input(s): CALCIUM, MAGNESIUM, PHOS in the last 168 hours. No results for input(s): PT, PTT, FIBRINOGEN, DDIMER in the last 168 hours. Invalid input(s): THROMBIN TIME No results for input(s): INR in the last 168 hours. No results for input(s): AST, ALT, ALKPHOS, BILITOT, BILIDIR in the last 168 hours. No results for input(s): CK, TROPONINT in the last 168 hours. No results for input(s): LDH, URICACID in the last 168 hours. No results for input(s): TSH in the last 7068 hours. No results for input(s): HA1C in the last 7068 hours. Lab Results Component Value Date CHLPL 106 02/04/2017 HDL 37 (L) 02/04/2017 CHOLHDL 2.9 02/04/2017 TRIG 171 02/04/2017 LDLDIRECT 47 02/04/2017 Microbiology Results (Last 30 days) No results found for the last 720 hours. Imaging/Diagnostics: No results found for this visit on 01/08/24. ASSESSMENT and PLAN: Cali Thompson is a 88 y.o. male with hx of Insulin-dependent DMII, CKD IV, CHF, AAA s/p repair, L Scrotal varicocele, who presents with hypoglycemia and bradycardia. Patient is presenting from OSH in stable condition and with improved status with resolution of bradycardia and hypoglycemia. Patient initially assessed to have broad differential including infection,cardiac event, and medication misuse. Patient has since had negative workup including blood cultures with NGTD, and negative urinalysis, chest XR, EKG and troponins. Patient is most likely to have had unintentional overuse of insulin given he continues to use lispro 9u TID and glargine 25u QD regardless of quantity of carb consumption which has decreased over time. Patient's remarkably low A1C of5.8% suggests he may often being having frequent low blood sugars at home and will likely need adjusted insulin regimen upon discharge. Patient to be admitted to hospital medicine service for management of the problems stated above. Detailed plan as below. #Insulin-dependent Diabetes #Hypoglycemia HOLD home insulin regimen (Glargine 25u QAM + Lispro 9u TID with meals) -SSI Sensitive Scale -OBI 1:20 -Glargine 6u QHS #Hypothermia -passive external warming blanket to core temperature 37 #Bradycardia (resolving) -HOLD metoprolol #Back Pain #Varicocele #Abdominal Pain #Chronic Constipation No evidence of testicular torsion or hernia strangulation -Miralax QD -Senna BID -Goal of 1 BM QD -Patient has scheduled follow up with urology on 01/21/24 for varicocele -Tylenol Scheduled -Spot dose oxycodone 2.5 - 5mg Q8h PRN -HOLD Toradol (previous experience of constipation and severe dizziness upon standing) -HOLD NSAIDs (for apixaban and renal function) #Afib -c/w amiodarone -c/w apixaban #Housekeeping: - DVT PPx: Apixaban 2.5mg BID - Diet: Carb Control diet 60/60/75 CHO counting level 2 - Level of care: Step Down - Vitals: Q4h - PT/OT: Pending - Code Satus: FULL CODE Waqas Garcia MD Internal Medicine, PGY - 3 [facility] Medicine, RED TEAM #[id number] 01/08/2024 Associated attestation - Shantelle Longo DO - 01/08/2024 5:50 PM EDT Attending Attestation Please see Waqas Garcia MD???s note for details of the patient history of presentation and data. I have seen and examined the patient myself and reviewed pertinent studies. I have discussed, reviewed and agree with the documented History, Physical findings, Assessment and Plan of care. 88M with IDDM and CKD who initially presented to [facility] after he awoke feeling sweaty and was foundto be hypoglycemic in the 20s and bradycardic in the 40s (sinus) for which he received D10 was transferred here. On arrival he was 34.8 on rectal temp but otherwise he was HDS with HR in the 60s. Blood sugar on arrival was 184. On my initial assessment of him this morning he states he feels much better but that he has abdominal pain related to his varicocele. Gathering more information it seems that he has not been eating well at home but has continued to take his normal insulin that he has been on for years. Also his baseline creatinine is unclear but he either has YEYO or worsening of his CKD which is also likely playing a role with decreased clearance. His A1c is 5.8 which is below goal for an 88 year old. We will monitor his sugars and give a significantly reduced insulin regimen. He may even be able to come off insulin if we transition to an oral regimen. documented in this encounter Miscellaneous Notes * Care Management Discharge - Juanita Lynch RN - 01/09/2024 2:30 PM EDT CARE MANAGEMENT FINAL DISCHARGE NOTE Chart reviewed, care reviewed with primary team and at interdisciplinary rounds. Patient is medically ready for discharge to Home. Needs for Transition of Care: Plan for discharge is: Home w/o Services Outpatient Agency/Support Group Needs: None Agency Referrals & Follow-up Care: Transportation: family or friend will provide Wheelchair van/Ambulance? No Functional status prior to admission: Independent Home Environment: Others in the home: other (see comments) (Paid caregiver). Current Living Arrangements: home/apartment/condo. Accessibility Concerns:2 story home, bedroom on main floor, 3 jerod with railings.. Current Functional Ability: Independent DME used at home: cane - straight DME Needed at Discharge: Patient is insured through: Primary Insurance: [facility] [employer] [employer] Payor: [facility] [employer] [employer] / Plan: [facility] [employer] / Product Type: *No Product type* / Secondary Insurance: N/A Prescription Coverage: Yes This plan was formulated with input from patient and team. All are in agreement with plan. Juanita Lynch RN CM Slide Fastener Repairer- Medicine Office of Care Management Ext: [phone] Pager: [phone] * Care Management - Sandra Valdez - 01/09/2024 1:46 PM EDTSummary: Advance Directive Patient completed Advance Directive with Mother Repairer. Montse De Anda (friend) named primary agent. * Consult Note - Anabella Perry - 01/09/2024 11:41 AM EDT BIT Evaluation Referral source: Admission screening Reason for referral: Other: Follow up of AUDIT score Interventions delivered: Patient education Other: Declined alcohol and your health pamphlet. * Plan of Care - Екатерина Archibald RN - 01/09/2024 2:19 AM EDT OUTCOME EVALUATION NOTE: OUTCOME SUMMARY: Pt admitted 01/08/24 with hypoglycemia. Pt has been stable this shift, VSS. No further episodes of hypothermia or hypoglycemia. Pt does endorse bilateral flank/lower abd pain. Requested and received prn tylenol with fair effect. Up to BR with stand by assist. Voiding without difficulty. Will continueto monitor and will inform MD of any changes. PLAN MOVING FORWARD: -VS q 4 -FS q 4 -Encourage OOB -Pain management -Meds/labs as ordered INDIVIDUALIZED FALL PREVENTION INTERVENTIONS: Patient-specific fall risk factors per assessment: [current deficits]: weakness, deconditioning Assistance [level of assistance required for transfers and ambulation]: 1 stand by assist for transfers/ambulation. FWW as needed for longer distances Supervision [direct monitoring required during toileting and ADLs]: eyes on if OOB for toileting, 1assist for ADLs Surveillance [continuous indirect monitoring]: hourly rounding, bed alarm Patient-specific fall prevention interventions for sensory deficits provided, if applicable: [X] Yes, call montanez within easy reach, side rails up x 3, nonslip socks on if OOB, PT consult as needed CPG GOAL OUTCOME EVALUATION: Problem: Adult Inpatient Plan of Care Goal: Plan of Care Review Outcome: Ongoing (Interventions Implemented as Appropriate) Goal: Patient-Specific Goal (Individualized) Outcome: Ongoing (Interventions Implemented as Appropriate) Goal: Absence of Hospital-Acquired Illness or Injury Outcome: Ongoing (Interventions Implemented as Appropriate) Goal: Optimal Comfort and Wellbeing Outcome: Ongoing (Interventions Implemented as Appropriate) Goal: Readiness for Transition of Care Outcome: Ongoing (Interventions Implemented as Appropriate) * Plan of Care - Xena Emerson RN - 01/08/2024 5:59 PM EDTSummary: Progress Note OUTCOME SUMMARY: VSS on RA, NSR. A&Ox4. BG Q4h, Blood glucose stable 162, 160, 140. Admission assessment done. Complaining about abd pain, will see GI specialist - outpatient. PLAN MOVING FORWARD: Controlled blood glucose. Discharge tomorrow? CARE PLAN GOAL OUTCOME EVALUATION: Problem: Adult Inpatient Plan of Care Goal: Plan of Care Review Outcome: Ongoing (Interventions Implemented as Appropriate) Goal: Patient-Specific Goal (Individualized) Outcome: Ongoing (Interventions Implemented as Appropriate) Goal: Absence of Hospital-Acquired Illness or Injury Outcome: Ongoing (Interventions Implemented as Appropriate) Goal: Optimal Comfort and Wellbeing Outcome: Ongoing (Interventions Implemented as Appropriate) Goal: Readiness for Transition of Care Outcome: Ongoing (Interventions Implemented as Appropriate) * Plan of Care - Jia Jama RN - 01/08/2024 5:47 PM EDT Problem: Adult Inpatient Plan of Care Goal: Plan of Care Review Outcome: Ongoing (Interventions Implemented as Appropriate) Goal: Patient-Specific Goal (Individualized) Outcome: Ongoing (Interventions Implemented as Appropriate) Goal: Absence of Hospital-Acquired Illness or Injury Outcome: Ongoing (Interventions Implemented as Appropriate) Goal: Optimal Comfort and Wellbeing Outcome: Ongoing (Interventions Implemented as Appropriate) Goal: Readiness for Transition of Care Outcome: Ongoing (Interventions Implemented as Appropriate) * Initial Assessments - Juanita Lynch RN - 01/08/2024 12:35 PM EDT Office of Care Management Initial Assessment Juanita Lynch RN reviewed record and discussed patient with Care Team. Source of Information: Team, bedside nurse, medical record, and Patient, Chart Review Introduced self/reviewed role; services accepted. Admitted From: Transfer from another hospital Location: [facility] Reason for Hospitalization: Past medical History: Past Medical History: Diagnosis Date AAA (abdominal aortic aneurysm) 04/12/2011 HTN (hypertension) 04/12/2011 S/P hernia repair 04/12/2011 Type 2 diabetes mellitus Hospitalizations Within the Past 30 Days: no previous admission in last 30 days Current Decision-Making Capacity: Self If AD's have not been completed the following surrogate would be surrogate decision maker per [place] surrogate decision making law. (Only good for 180 days) Any patient receiving care in [place] must abide by [place] law. The hierarchy for surrogate decision making is: (a) Patient???s spouse or civil union partner unless there is a divorce proceeding, separation agreement, or restraining order limiting that person???s relationship with the patient. (b) Any adult son or daughter of the patient. (c) Either parent of the patient. (d) Any adult brother or sister of the patient. (e) Any adult grandchild of the patient. (f) Any grandparent of the patient. (g) Any adult aunt, uncle, niece, or nephew of the patient. (h) A close friend of the patient. (i) The agent with financial power of staff electronic warfare officer or a conservator appointed in accordance with RSA 464-A. (j) The guardian of the patient???s estate. Advance Care Planning: Attempt Cardiopulmonary Resuscitation - Inpatient <no information> -Advanced Directive: No, need to discuss Patient states he thinks he has one, but doesn't know where it is. I explained to him that since Montse is his caregiver only, that his adult children would be his SDM. He wishes to complete an AD during this stay to name Montse De Anda as his SDM. Current Coping/Education/Information Needs: Current Functional Ability: Independent Functional Status Prior to Admission: Independent Prior ADLs & IADLs: Independent with all ADLs & IADLs Home Environment: Others in the home: other (see comments) (Paid caregiver). Current Living Arrangements: home/apartment/condo. Accessibility Concerns:2 story home, bedroom on main floor, 3 jerod with railings.. In the last 12 months, was there a time when you were not able to pay the mortgage or rent on time?: No At any time in the past 12 months, were you homeless or living in a skilled nursing (including now)?: No In the past 12 months has the [employer], gas, oil, or water [employer] threatened to shut off services in your home?: No Within the past 12 months, you worried that your food would run out before you got the money to buymore.: Never true Within the past 12 months, the food you bought just didn't last and you didn't have money to get more.: Never true Resource / Environmental Concerns: Resource/Environmental Concerns: none In the past 12 months, has lack of transportation kept you from medical appointments or from getting medications?: No In the past 12 months, has lack of transportation kept you from meetings, work, or from getting things needed for daily living?: No Current DME: cane - straight Home Address confirmed as: [address] [facility] [address] Social & Family Supports: All names listed below confirmed with patient as current and correct Extended Emergency Contact Information Primary Emergency Contact: Montse De Anda Address: [address] [place], [place] [id number] [place] [address] Relation: Friend Current Care Provided by: self Provides Primary Care For: no one Caregiver if needed: (Paid caregiver) Quality of Family relationships: helpful, supportive Community Resources being provided currently: none Behavioral Health History: Denies Substance Use/Abuse confirmed: Social History Tobacco Use Smoking Status Former Types: Pipe Quit date: 02/07/2017 Years since quittin.9 Smokeless Tobacco Never 0 No problems reported 1-2 Low level 3-5 Moderate level 6-8 Substantial level 9- 10 Severe level 0 to 7 points: Low risk 8 to 15 points: Medium risk 16 to 19 points: High risk 20 to 40 points: Addiction likely Other Pertinent/Service Specific Information: Patient lives in his own home with his friend/paid caregiver Montse De Anda. Health/Prescription Coverage: Primary Insurance: [facility] [employer] Payor: [facility] [employer] / Plan: [facility] [employer] / Product Type: *No Product type* / Secondary Insurance: N/A ; Prescription Coverage: Yes Preferred Pharmacy: [id number] - [place], [place] - [address] [facility] [facility] [phone] [facility] - [facility] [address] [facility] [place] [address] [place] Status: Patient is a : Yes Are you enrolled in the [place] for your healthcare?: No Primary Care Provider confirmed: Rolando Moise MD [phone] Patient/Caregiver Goals of Treatment: Potential Needs for Transition of Care: none Agency Referrals: Not Applicable Transportation: no concerns Transportation Anticipated: family or friend will provide Concerns to be Addressed: no discharge needs identified Assessment: Patient is admitted to Medicine service for Hypoglycemia Plan going forward: Continued medical management. Patient will DC home with his paid caregiver Montse when medically cleared. Care Management team will continue to follow and assist with discharge planing and coordination of care as indicated. Juanita Lynch RN CM Slide Fastener Repairer- Medicine Office of Care Management Ext: [phone] Pager: [phone] documented in this encounter Plan of Treatment Upcoming Encounters Date Type Department Care Team (Late st Contact Info) Description 02/02/2024 12:15 PM EDT Laboratory Appointment Lab [address] [place] [address] 02/02/2024 2:[address] [place] [address] [facility] [place] [address] 02/02/2024 2:30 PM EDT Office [place] [address] [facility] [place] [address] Scheduled Orders Name Type Priority Associated Diagnoses Orde r Schedule EKG 12 Lead ECG Routine Atrial fibrillation, unspecified type One Time for 1 Occurrences starting 01/08/2024 until 01/08/2024 documented as of this encounter Procedures Procedure Name Priority Date/Time Associated Diagnosis Comments POC, GLUCOSE Routine 01/09/2024 12:08 PM EDT POC, GLUCOSE Routine 01/09/2024 8:29 AM EDT SCAN, PERIPHERAL BLOOD Routine 01/09/2024 3:07 AM EDT CBC (WITH DIFF) Routine 01/09/2024 3:07 AM EDT BASIC METABOLIC PANEL Routine 01/09/2024 3:07 AM EDT POC, GLUCOSE Routine 01/09/2024 3:06 AM EDT POC, GLUCOSE Routine 01/09/2024 12:05 AM EDT POC, GLUCOSE Routine 01/08/2024 7:36 PM EDT POC, GLUCOSE Routine 01/08/2024 5:29 PM EDT POC, GLUCOSE Routine 01/08/2024 1:12 PM EDT BLOOD CULTURE Routine 01/08/2024 11:02 AM EDT CBC (WITH DIFF) Routine 01/08/2024 11:02 AM EDT MAGNESIUM Routine 01/08/2024 11:02 AM EDT HEMOGLOBIN A1C Routine 01/08/2024 11:02 AM EDT HEPATIC FUNCTION PANEL Routine 01/08/2024 11:02 AM EDT BASIC METABOLIC PANEL Routine 01/08/2024 11:02 AM EDT URINALYSIS MICROSCOPIC WITH REFLEX TO CULTURE Routine 01/08/2024 10:29 AM EDT URINALYSIS WITH REFLEX CULTURE Routine 01/08/2024 10:29 AM EDT POC, GLUCOSE Routine 01/08/2024 9:43 AM EDT POC, GLUCOSE Routine 01/08/2024 7:02 AM EDT documented in this encounter Results * POC, GLUCOSE (01/09/2024 12:08 PM EDT) Glucometer, POC 147 65 - 199 mg/dL 01/09/2024 12:10 PM EDT [facility] Comment:Supplemental ranges: <140 mg/dL before meals <180 mg/dL all other times of the day. Blood CAPILLARY BLOOD / Unknown 01/09/2024 12:08 PM EDT 01/09/2024 12:10 PM EDT Shantelle Longo DO POINT OF CARE TEST O RDERABLES [facility] [place] [address] * POC, GLUCOSE (01/09/2024 8:29 AM EDT) Glucometer, POC 173 65 - 199 mg/dL 01/09/2024 8:30 AM EDT [facility] Comment:Supplemental ranges: <140 mg/dL before meals <180 mg/dL all other times of the day. Blood CAPILLARY BLOOD / Unknown 01/09/2024 8:29 AM EDT 01/09/2024 8:30 AM EDT Shantelle Longo DO POINT OF CARE TEST O RDERABLES Performing Organization Address City/[facility]/ZIP Co de Phone Number [facility] [place] [address] * Scan, Peripheral Blood (01/09/2024 3:07 AM EDT) RBC Morphology Normal 01/09/2024 3:51 AM EDT [facility] Platelet Estimate Normal Normal 01/09/2024 3:51 AM EDT [facility] Blood VENOUS BLOOD SPECIMEN / Unknown IP Care Team Draw / Unknown 01/09/2024 3:07 AM EDT 01/09/2024 3:14 AM EDT Ángel Martin DO HEMATOLOGY ORDERAB LES Performing Organization Address [facility] Co de Phone Number [facility] [place] [address] * (ABNORMAL) Basic Metabolic Panel (01/09/2024 3:07 AM EDT) Glucose 113 65 - 199 mg/dL 01/09/2024 [...] 135 - 145 mMol/L 01/09/2024 3:43 AM EDT [facility] Potassium 4.1 3.5 - 5.0 mMol/L 01/09/2024 3:43 AM EDT [facility] Chloride 100 98 - 107 mMol/L 01/09/2024 3:43 AM EDT [facility] Carbon Dioxide 25 22 - 31 mMol/L 01/09/2024 3:43 AM EDT [facility] Anion Gap 12 5 - 15 mMol/L 01/09/2024 3:43 AM EDT [facility] Calcium 9.1 8.5 - 10.5 mg/dL 01/09/2024 3:43 AM EDT [facility] Est Glomerular Filtration Rate - Male 17 mL/min/1. 73 m?? 01/09/2024 3:43 AM [facility] Comment: This patient's estimated GFR was [...] Foundation Fasting Status No 01/09/2024 3:43 AM T [facility] Blood VENOUS BLOOD SPECIMEN / Unknown IP Care Team Draw / Unknown 01/09/2024 3:07 AM EDT 01/09/2024 3:14 AM EDT Ángel Martin DO CHEMISTRY ORDERABL ES [facility] [place] [address] * (ABNORMAL) CBC (with Diff) (01/09/2024 3:07 AM EDT) White Blood Cell 13.93(H) 4.00 - 9.50 x10(3)/mc L 01/09/2024 3:51 AM [facility] Red Blood Cell 3.96(L) 4.58 - 5.54 x10(6)/mc L 01/09/2024 3:51 AM [facility] Hemoglobin 11.4(L) 13.7 - 16.5 g/dL 01/09/2024 3:51 AM [facility] Hematocrit 35.9(L) 40.5 - 48.5 % 01/09/2024 3:51 AM [facility] Mean Cell Volume 90.7 82.9 - 93.1 fL 01/09/2024 3:51 AM [facility] Mean Cell Hemoglobin 28.8 27.5 - 32.1 pg 01/09/2024 3:51 AM [facility] Mean Cell Hemoglobin Concentration 31.8(L) 32.0 - 35.7 g/dL 01/09/2024 3:51 AM [facility] Platelet 332 145 - 357 x10(3)/mc L 01/09/2024 3:51 AM [facility] Mean Platelet Volume 9.5 7.6 - 12.9 fL 01/09/2024 3:51 AM [facility] RDW Standard Deviation 42.8 36.0 - 45.0 fL 01/09/2024 3:51 AM [facility] RDW coefficient of variation 13.0 11.4 - 13.8 % 01/09/2024 3:51 AM [facility] NRBC% auto 0.0 % 01/09/2024 3:51 AM [facility] NRBC Absolute 0.00 0.00 - 0.00 x10(3)/mc L 01/09/2024 3:51 AM [facility] Neutrophil % 69.0 % 01/09/2024 3:51 AM [facility] Comment:This is an appended report. These results have been appended to a previously preliminary verified report. Neutrophil Absolute (ANC) - Automated 9.60(H) 1.70 - 6.10 x10(3)/mc L 01/09/2024 3:51 AM [facility] Comment:This is an appended report. These results have been appended to a previously preliminary verified report. Lymph % 17.4 % 01/09/2024 3:51 AM [facility] Comment:This is an appended report. These results have been appended to a previously preliminary verified report. Lymph Absolute 2.42 0.90 - 3.20 x10(3)/mc L 01/09/2024 3:51 AM [facility] Comment:This is an appended report. These results have been appended to a previously preliminary verified report. Monocyte % 11.7 % 01/09/2024 3:51 AM [facility] Comment:This is an appended report. These results have been appended to a previously preliminary verified report. Monocyte Absolute 1.63(H) 0.30 - 0.90 x10(3)/mc L 01/09/2024 3:51 AM [facility] Comment:This is an appended report. These results have been appended to a previously preliminary verified report. Eos % 1.1 % 01/09/2024 3:51 AM [facility] Comment:This is an appended report. These results have been appended to a previously preliminary verified report. Eos Absolute 0.16 0.00 - 0.40 x10(3)/mc L 01/09/2024 3:51 AM [facility] Comment:This is an appended report. These results have been appended to a previously preliminary verified report. Basophil % 0.2 % 01/09/2024 3:51 AM [facility] Comment:This is an appended report. These results have been appended to a previously preliminary verified report. Baso Absolute 0.03 0.00 - 0.10 x10(3)/mc L 01/09/2024 3:51 AM [facility] Comment:This is an appended report. These [...] EDT Ángel Martin DO HEMATOLOGY ORDERAB LES Performing Organization Address City/[facility]/ZIP Co de Phone Number [facility] [place] [place] [address] * POC, GLUCOSE (01/09/2024 3:06 AM EDT) Glucometer, POC 120 65 - 199 mg/dL 01/09/2024 3:07 AM EDT [facility] Comment:Supplemental ranges: <140 mg/dL before meals <180 mg/dL all other times of the day. Blood CAPILLARY BLOOD / Unknown 01/09/2024 3:06 AM EDT 01/09/2024 3:07 AM EDT Shantelle Longo DO POINT OF CARE TEST O RDERABLES [facility] [place] [address] * POC, GLUCOSE (01/09/2024 12:05 AM EDT) Glucometer, POC 111 65 - 199 mg/dL 01/09/2024 12:07 AM EDT [facility] Comment:Supplemental ranges: <140 mg/dL before meals <180 mg/dL all other times of the day. Blood CAPILLARY BLOOD / Unknown 01/09/2024 12:05 AM EDT 01/09/2024 12:07 AM EDT Shantelle Robertson Qing POINT OF CARE TEST O RDERABLES Performing Organization Address [facility] Co de Phone Number [facility] [place] [address] * POC, GLUCOSE (01/08/2024 7:36 PM EDT) Glucometer, POC 158 65 - 199 mg/dL 01/08/2024 7:37 PM EDT [facility] Comment:Supplemental ranges: <140 mg/dL before meals <180 mg/dL all other times of the day. Blood CAPILLARY BLOOD / Unknown 01/08/2024 7:36 PM EDT 01/08/2024 7:37 PM EDT Shantelle Robertson Qing POINT OF CARE TEST O RDERABLES Performing Organization Address [facility] Co de Phone Number [facility] [place] [address] * POC, GLUCOSE (01/08/2024 5:29 PM EDT) Glucometer, POC 146 65 - 199 mg/dL 01/08/2024 5:30 PM EDT [facility] Comment:Supplemental ranges: <140 mg/dL before meals <180 mg/dL all other times of the day. Blood CAPILLARY BLOOD / Unknown 01/08/2024 5:29 PM EDT 01/08/2024 5:30 PM EDT Shantelle Robertson Qing POINT OF CARE TEST O RDERABLES Performing Organization Address [facility] Co de Phone Number [facility] [place] [address] * POC, GLUCOSE (01/08/2024 1:12 PM EDT) Glucometer, POC 160 65 - 199 mg/dL 01/08/2024 1:14 PM EDT [facility] Comment:Supplemental ranges: <140 mg/dL before meals <180 mg/dL all other times of the day. Blood CAPILLARY BLOOD / Unknown 01/08/2024 1:12 PM EDT 01/08/2024 1:14 PM EDT Shantelle Longo DO POINT OF CARE TEST O RDERABLES [facility] [place] [address] * (ABNORMAL) Hemoglobin A1c (01/08/2024 11:02 AM EDT) Hemoglobin A1c 5.8(H) 4.3 - 5.6 % [...] red blood cell turnover may not be representative personal service of glycemic control. Reference Interval: 4.3 - 5.6% 5.7 - 6.4%: Consistent with prediabetes >=6.5%: Consistent with diagnosis of diabetes mellitus Estimated Average Glucose 01/08/2024 1:51 PM EDT [facility] Comment:Not Calculated. Blood VENOUS BLOOD SPECIMEN / Unknown Venipuncture / Unknown 01/08/2024 11:02 AM EDT 01/08/2024 1:18 PM EDT Narrative [facility] - 01/08/2024 1:51 PM EDT Estimated average glucose (eAG) is calculated from the equation described in: Hu RODRIGUEZ, Faustino J, Sridhar R, et al. ??Translating the A1C assay into estimated average glucose values. ??Diabetes Care 2008:31(8):0108-8177. Additional resources are available on the ADA website (diabetes.org). Ángel Martin DO CHEMISTRY ORDERABL ES Performing Organization Address City/[facility]/ZIP Co de Phone Number [facility] [place] [address] * (ABNORMAL) Hepatic Function Panel (01/08/2024 11:02 AM EDT) Albumin 2.8(L) 3.2 - 5.2 g/dL 01/08/2024 [...] CHEMISTRY ORDERABL ES [facility] [place] [address] * Magnesium (01/08/2024 11:02 AM EDT) Magnesium 0.77 0.69 - 1.07 mMol/L 01/08/2024 1:53 PM EDT [facility] Blood VENOUS BLOOD SPECIMEN / Unknown Venipuncture / Unknown 01/08/2024 11:02 AM EDT 01/08/2024 1:18 PM EDT Ángel Martin DO CHEMISTRY ORDERABL ES [facility] [place] [address] * (ABNORMAL) Basic Metabolic Panel (01/08/2024 11:02 AM EDT) Glucose 136 65 - 199 mg/dL 01/08/2024 1:53 PM EDT [facility] Comment:Glucose Concentratio n >=200 mg/dL plus symptoms is consistent with Diabetes Mellitus. Blood Urea Nitrogen 23(H) 10 - 20 mg/dL 01/08/2024 1:53 PM EDT [facility] Creatinine 3.10(H) 0.80 - 1.50 mg/dL 01/08/2024 1:53 PM EDT [facility] Sodium 136 135 - 145 mMol/L 01/08/2024 1:53 PM EDT [facility] Potassium 3.7 3.5 - 5.0 mMol/L 01/08/2024 1:53 PM EDT [facility] Chloride 103 98 - 107 mMol/L 01/08/2024 1:53 PM EDT [facility] Carbon Dioxide 22 22 - 31 mMol/L 01/08/2024 1:53 PM EDT [facility] Anion Gap 11 5 - 15 mMol/L 01/08/2024 1:53 PM EDT [facility] Calcium 8.5 8.5 - 10.5 mg/dL 01/08/2024 1:53 PM EDT [facility] Est Glomerular Filtration Rate - Male 19 mL/min/1. 73 m?? 01/08/2024 1:53 PM EDT [facility] Comment: This patient's estimated [...] eGFR. Link: eGFR Calculator [employer] Blood VENOUS BLOOD SPECIMEN / Unknown Venipuncture / Unknown 01/08/2024 11:02 AM EDT 01/08/2024 1:18 PM EDT Ángel Martin DO CHEMISTRY ORDERABL ES [facility] [place] [address] * (ABNORMAL) CBC (with Diff) (01/08/2024 11:02 AM EDT) White Blood Cell 11.93(H) 4.00 - 9.50 x10(3)/mc L 01/08/2024 1:27 PM EDT [facility] Red Blood Cell 3.94(L) 4.58 - 5.54 x10(6)/mc L 01/08/2024 1:27 PM EDT [facility] Hemoglobin 11.3(L) 13.7 - 16.5 g/dL 01/08/2024 1:27 PM EDT [facility] Hematocrit 36.0(L) 40.5 - 48.5 % 01/08/2024 1:27 PM EDT [facility] Mean Cell Volume 91.4 82.9 - 93.1 fL 01/08/2024 1:27 PM T [facility] Mean Cell Hemoglobin 28.7 27.5 - 32.1 pg 01/08/2024 1:27 PM EDT [facility] Mean Cell Hemoglobin Concentration 31.4(L) 32.0 - 35.7 g/dL 01/08/2024 1:27 PM EDT [facility] Platelet 287 145 - 357 x10(3)/mc L 01/08/2024 1:27 PM [facility] Mean Platelet Volume 9.8 7.6 - 12.9 fL 01/08/2024 1:27 PM [facility] RDW Standard Deviation 43.5 36.0 - 45.0 fL 01/08/2024 1:27 PM [facility] RDW coefficient of variation 13.1 11.4 - 13.8 % 01/08/2024 1:27 PM [facility] NRBC% auto 0.0 % 01/08/2024 1:27 PM [facility] NRBC Absolute 0.00 0.00 - 0.00 x10(3)/mc L 01/08/2024 1:27 PM [facility] Neutrophil % 74.6 % 01/08/2024 1:27 PM [facility] Neutrophil Absolute (ANC) - Automated 8.91(H) 1.70 - 6.10 x10(3)/mc L 01/08/2024 1:27 PM [facility] Lymph % 13.6 % 01/08/2024 1:27 PM [facility] Lymph Absolute 1.62 0.90 - 3.20 x10(3)/mc L 01/08/2024 1:27 PM [facility] Monocyte % 9.9 % 01/08/2024 1:27 PM [facility] Monocyte Absolute 1.18(H) 0.30 - 0.90 x10(3)/mc L 01/08/2024 1:27 PM [facility] Eos % 0.8 % 01/08/2024 1:27 PM [facility] Eos Absolute 0.10 0.00 - 0.40 x10(3)/mc L 01/08/2024 1:27 PM [facility] Basophil % 0.3 % 01/08/2024 1:27 PM [facility] Baso Absolute 0.03 0.00 - 0.10 x10(3)/mc L 01/08/2024 1:27 PM EDT [facility] Immature Gran % 0.8 % 1:27 PM EDT [facility] Immature Gran Absolute 0.09(H) 0.00 - 0.04 x10(3)/mc L 01/08/2024 1:27 PM EDT [facility] Blood VENOUS BLOOD SPECIMEN / Unknown Venipuncture / Unknown 01/08/2024 11:02 AM EDT 01/08/2024 1:18 PM EDT Ángel Martin DO HEMATOLOGY ORDERAB LES Performing Organization Address [facility] Co de Phone Number [facility] [place] [address] * (ABNORMAL) Blood culture (01/08/2024 11:02 AM EDT) Blood Culture Coagulase Negative Staphylococcus species(Critical) 01/13/2024 7:51 AM EDT [facility] Comment: detected by PCR Interpretation of the importance of skin praful such as Coag Negative Staph, Viridans Strep, [...] Martin DO MICROBIOLOGY - BLO OD ORDERABLES Performing Organization Address [facility]/ZIP Co de Phone Number [facility] [place] [address] * Urinalysis Microscopic with Reflex to Culture [...] AM EDT Ángel Martin DO URINE ORDERABLES [facility] [place] [address] * (ABNORMAL) Urinalysis with reflex Culture (01/08/2024 10:29 AM EDT) Glucose, Urine Dipstick Negative Negative 01/08/2024 10:53 AM EDT [facility] Protein, Urine Dipstick 30 mg/dL(A) Negative 01/08/2024 10:53 AM EDT [facility] Bilirubin, Urine Dipstick Negative Negative 01/08/2024 10:53 AM [facility] Comment:Clinical correlation required for positive Urine Bilirubin results as false positive may occur with some drugs and drug related products. If a false positive is suspected a serum total bilirubin should be considered if clinically indicated. Urobilinogen, Urine Dipstick Normal Normal, 0.2 mg/dL, 1.0 mg/dL 01/08/2024 10:53 AM EDT [facility] pH, Urine (dipstick) 6.5 5.0 - 8.0 01/08/2024 10:[facility] Blood, Urine Dipstick Negative Negative 01/08/2024 10:[facility] Ketone, Urine Dipstick Negative Negative 01/08/2024 10:53 AM EDT [facility] Nitrite, Urine Dipstick Negative Negative 01/08/2024 10:53 AM EDT [facility] Leukocytes, Urine Dipstick Negative Negative 01/08/2024 10:53 AM EDT [facility] Specific [place] Urine Automated 1.015 1.005 - 1.030 01/08/2024 10:53 AM EDT [facility] Appearance, Urine Dipstick Clear Clear 01/08/2024 10:53 AM EDT [facility] Color, Urine Dipstick Yellow Yellow, Dark Yellow 01/08/2024 10:53 AM EDT [facility] Urine URINE SPECIMEN OBTAINED BY CLEAN CATCH PROCEDURE / Unknown Non Blood Collection / Unknown 01/08/2024 10:29 AM EDT 01/08/2024 10:39 AM EDT Ángel Martin DO URINE ORDERABLES Performing Organization Address City/[facility]/ZIP Co de Phone Number [facility] [place] [address] * POC, GLUCOSE (01/08/2024 9:43 AM EDT) Glucometer, POC 162 65 - 199 mg/dL 01/08/2024 9:43 AM EDT [facility] Comment:Supplemental ranges: <140 mg/dL before meals <180 mg/dL all other times of the day. Blood CAPILLARY BLOOD / Unknown 01/08/2024 9:43 AM EDT 01/08/2024 9:43 AM EDT Shantelle Longo DO POINT OF CARE TEST O RDERABLES [facility] [place] [address] * POC, GLUCOSE (01/08/2024 7:02 AM EDT) Glucometer, POC 184 65 - 199 mg/dL 01/08/2024 7:02 AM EDT [facility] Comment:Supplemental ranges: <140 mg/dL before meals <180 mg/dL all other times of the day. Blood CAPILLARY BLOOD / Unknown 01/08/2024 7:02 AM EDT 01/08/2024 7:03 AM EDT Ángel Martin DO POINT OF CARE TEST ORDERABLES [facility] [place] [address] documented in this encounter Visit Diagnoses Diagnosis Hypoglycemia- Primary Hypoglycemia, unspecified Atrial fibrillation, unspecified type documented in this encounter Admitting Diagnoses Diagnosis Hypoglycemia Hypoglycemia, unspecified documented in this encounter Administered Medications Inactive Administered Medications - up to 3 most recent administrations Medication Order MAR Action Action Date Dose Rate Site acetaminophen (Tylenol) tablet 650 mg 650 mg, Oral, EVERY 6 HOURS PRN, Starting on Fri01/08/24 at 0739, Until Fri01/09/24 at 1836, Pain, Fever, Administer for pain or temperature greater than or equal to 38.2 degrees Celsius. Maximum daily dose of acetaminophen from all sources not to exceed 4,000 mg. When ordered for pain, acetaminophen should be given even when other ordered pain medications are indicated., Routine Given 01/09/2024 11:24 AM EDT 650 mg Given 01/08/2024 8:19 PM EDT 650 mg Given 01/08/2024 2:49 PM EDT 650 mg allopurinoL (Zyloprim) tablet 50 mg 50 mg, Oral, DAILY, First dose on Fri01/08/24 at 0900, Until Discontinued, Routine Given 01/09/2024 8:18 AM EDT 50 mg Given 01/08/2024 9:27 AM EDT 50 mg AMIOdarone (Pacerone) tablet 200 mg 200 mg, Oral, DAILY, First dose on Fri01/08/24 at 0900, Until Discontinued, Routine Given 01/09/2024 8:19 AM EDT 200 mg Given 01/08/2024 9:27 AM EDT 200 mg apixaban (Eliquis) tablet 2.5 mg 2.5 mg, Oral, 2 TIMES DAILY, First dose on Fri01/08/24 at 0900, Until Discontinued, Anticoagulant, Routine, apixaban (Eliquis) Indication: Non-Valvular Atrial Fibrillation Given 01/09/2024 8:18 AM EDT 2.5 mg Given 01/08/2024 8:19 PM EDT 2.5 mg Given 01/08/2024 9:28 AM EDT 2.5 mg atorvastatin (Lipitor) tablet 40 mg 40 mg, Oral, EVERY EVENING, First dose on Fri01/08/24 at 1700, Until Discontinued, Routine Given 01/08/2024 5:31 PM EDT 40 mg bisacodyL (Dulcolax) suppository 10 mg 10 mg, Rectal, DAILY PRN, Starting on Fri01/08/24 at 0739, Until Fri01/09/24 at 1836, Constipation, Give if no BM within last 24 hr and rectal fullness is reported or assessed. Give concomitantly with any scheduled bowel medications ordered. , Routine bisacodyl EC (Dulcolax) tablet 10 mg 10 mg, Oral, 2 TIMES DAILY PRN, Starting on Fri01/08/24 at 0739, Until Fri01/09/24 at 1836, Constipation, Give if no BM after 24 hr after prior interventions. BM expected in 6-8 hours. If BM desired sooner, use next ordered agent. Give concomitantly with any scheduled bowel medications ordered., Routine dextrose 10% infusion 250 mL, at 1,000 mL/hr, Intravenous, EVERY 15 MIN PRN, Starting on Lisa 01/08/24 at 0814, Until Fri01/09/24 at 1836, For BG 50-70 mg/dL: Oral treatment preferred: If able to drink, give 120 mL juice or regular (not diet) soda OR if NPO, give 15 gram glucose 40% oral gel massaged into buccal mucosa OR if unconscious or uncooperative, give 25 gram (250 mL) dextrose 10% IV over 15 minutes per protocol OR, if no IV access, 1 mg glucagon IM. For BG less than 50 mg/dL: Oral treatment preferred: If able to drink, give 240 mL juice or regular (not diet) soda OR if NPO, give 30 gram glucose 40% oral gel massaged in buccal mucosa OR if unconscious or uncooperative, give 25 gram (250 mL) dextrose 10% IV over 15 minutes per protocol OR, if no IV access, 1 mg glucagon IM. Recheck BG in 15 minutes. May repeat juice/soda, gel, dextrose or glucagon once per episode. Notify provider if hypoglycemia does not resolve after two treatments. Providers should consider the following: administering longer-acting treatments for the duration of active insulin or hypoglycemia agent for persistent hypoglycemia and re-evaluating active insulin orders before administering the next dose. furosemide (Lasix) tablet 80 mg 80 mg, Oral, DAILY, First dose on Fri01/08/24 at 0900, Until Discontinued, Routine Given 01/09/2024 8:18 AM EDT 80 mg Given 01/08/2024 9:27 AM EDT 80 mg glucagon (Glucagen) (1 mg/mL) injection solution 1 mg 1 mg, Intramuscular, EVERY 15 MIN PRN, Starting on Fri01/08/24 at 0814, Until Fri01/09/24 at 1836, Low blood sugar, For BG 50-70 mg/dL: Oral treatment preferred: If able to drink, give 120 mL juice or regular (not diet) soda OR if NPO, give 15 gram glucose 40% oral gel massaged into buccal mucosa OR if unconscious or uncooperative, give 25 gram (250 mL) dextrose 10% IV over 15 minutes per protocol OR, if no IV access, 1 mg glucagon IM. For BG less than 50 mg/dL: Oral treatment preferred: If able to drink, give 240 mL juice or regular (not diet) soda OR if NPO, give 30 gram glucose 40% oral gel massaged in buccal mucosa OR if unconscious or uncooperative, give 25 gram (250 mL) dextrose 10% IV over 15 minutes per protocol OR, if no IV access, 1 mg glucagon IM. Recheck BG in 15 minutes. May repeat juice/soda, gel, dextrose or glucagon once per episode. Notify provider if hypoglycemia does not resolve after two treatments. Providers should consider the following: administering longer-acting treatments for the duration of active insulin or hypoglycemia agent for persistent hypoglycemia and re-evaluating active insulin orders before administering the next dose. , Routine glucose (Glutose) 40% oral geL 15-30 g of glucose, Buccal, EVERY 15 MIN PRN, Starting on Fri01/08/24 at 0814, Until Fri01/09/24 at 1836, Low blood sugar, For BG 50-70 mg/dL: Oral treatment preferred: If able to drink, give 120 mL juice or regular (not diet) soda OR if NPO, give 15 gram glucose 40% oral gel massaged into buccal mucosa OR if unconscious or uncooperative, give 25 gram (250 mL) dextrose 10% IV over 15 minutes per protocol OR, if no IV access, 1 mg glucagon IM. For BG less than 50 mg/dL: Oral treatment preferred: If able to drink, give 240 mL juice or regular (not diet) soda OR if NPO, give 30 gram glucose 40% oral gel massaged in buccal mucosa OR if unconscious or uncooperative, give 25 gram (250 mL) dextrose 10% IV over 15 minutes per protocol OR, if no IV access, 1 mg glucagon IM. Recheck BG in 15 minutes. May repeat juice/soda, gel, dextrose or glucagon once per episode. Notify provider if hypoglycemia does not resolve after two treatments. Providers should consider the following: administering longer-acting treatments for the duration of active insulin or hypoglycemia agent for persistent hypoglycemia and re-evaluating active insulin orders before administering the next dose. 1 tube of Glutose-15 contains 15 grams of glucose (net weight of tube = 37.5 grams.), Routine insulin glargine-ygfn (Semglee) (100 unit/mL) subcutaneous injection vial 6 Units 6 Units, Subcutaneous, NIGHTLY, First dose on Fri01/08/24 at 2100, Until Discontinued, Routine Given 01/08/2024 8:20 PM EDT 6 Units insulin lispro (HumaLOG;Admelog) (100 unit/mL) subcutaneous injection vial 0-6 Units 0-6 Units, Subcutaneous, 3 TIMES DAILY WITH MEALS, First dose on Fri01/08/24 at 0845, Until Discontinued, ME[employer] Give 1 unit for every 20 grams carbohydrate. Hold if not eating or if BG less than 70 mg/dL., Routine Given 01/08/2024 3:04 PM EDT 1 Units Given 01/08/2024 10:51 AM EDT 1 Units insulin lispro (HumaLOG;Admelog) (100 unit/mL) subcutaneous injection vial 1-4 Units 1-4 Units, Subcutaneous, EVERY 4 HOURS SCHEDULED, First dose on Fri01/08/24 at 0845, Until Discontinued, CORRECTION BOLUS [1-4 Units] Sensitive Sliding Scale (BG in mg/dL): Correction factor 40 (1 unit of insulin is expected to drop the glucose 40 mg/dL) ?? BG 160 - 200 Give 1 unit BG 201 - 240 Give 2 units BG 241 - 280 Give 3 units and recheck BG in 2 hours. BG greater than 280, give 4 units and recheck BG in 2 hours. - If recheck BG is LESS than 280, give no insulin and resume schedule - If recheck BG is GREATER than or EQUAL to 280, give 4 units and repeat BG in 2 hours (no more than 3 times)??& call for new insulin orders. DO NOT hold if NPO, unless specifically directed to do so by written order. ?? Per Inpatient Subcutaneous Insulin Policy, recheck a BG of greater than 240 mg/dL in 2 hours., Routine Given 01/09/2024 8:31 AM EDT 1 Units Given 01/08/2024 3:05 PM EDT 1 Units Given 01/08/2024 10:52 AM EDT 1 Units lactulose (Chronulac) (0.67 gram/mL) oral liquid 20 g 20 g, Oral, DAILY PRN, Starting on Fri01/08/24 at 0739, Until Fri01/09/24 at 1836, Constipation, Give if no BM 24 hr after prior interventions or if BM is desired within 2 hr. Give concomitantly with any scheduled bowel medications ordered, Routine lactulose (Chronulac) (0.67 gram/mL) oral liquid 20 g 20 g, Oral, DAILY PRN, Starting on Fri01/08/24 at 0739, Until Fri01/09/24 at 1836, Constipation, Give an additional (2nd) dose of lactulose 2 hr after 1st dose if still no BM. Disregard if 1st dose of lactulose not ordered. Give concomitantly with any scheduled bowel medications ordered. , Routine lisinopriL (Zestril) tablet 5 mg 5 mg, Oral, DAILY, First dose on Lisa 01/08/24 at 0930, Until Discontinued, Routine Given 01/09/2024 8:19 AM EDT 5 mg Given 01/08/2024 10:24 AM EDT 5 mg magnesium citrate oral liquid 296 mL 296 mL, Oral, ONCE PRN, 1 dose, Starting on Lisa 01/08/24 at 0739, Until Fri01/09/24 at 1836, Constipation, Give if no BM 2 hr after previous interventions. If 2 hr after mag citrate there is still no BM, see order for tap water enema, if placed. Give concomitantly with any scheduled bowel medications ordered., Routine ondansetron (pf) (Zofran) (2 mg/mL) injection 4 mg 4 mg, Intravenous, EVERY 8 HOURS PRN, Starting on Lisa 01/08/24 at 0739, Until Fri01/09/24 at 1836, Nausea, 4 mg,Oral,EVERY 8 HOURS PRN, Nausea,Vomiting If multiple antiemetics are ordered, use ondansetron first. May repeat times one in 30 minutes if ineffective. ondansetron ODT (Zofran-ODT) disintegrating tablet 4 mg 4 mg, Oral, EVERY 8 HOURS PRN, Starting on Lisa 01/08/24 at 0739, Until Fri01/09/24 at 1836, Nausea, If multiple antiemetics are ordered, use ondansetron first. PO Preferred. If patient unable to take PO, may give IV if ordered. May repeat times one in 45 minutes if ineffective. , Routine polyethylene glycoL (Miralax) packet 17 g 17 g, Oral, DAILY PRN, Starting on Lisa 01/08/24 at 0739, Until Fri01/09/24 at 1836, Constipation, Give if no BM within last 24 hr. Give concomitantly with any scheduled bowel medications ordered. , Routine polyethylene glycoL (Miralax) packet 17 g 17 g, Oral, DAILY, First dose on Fri01/08/24 at 0900, Until Discontinued, Hold for loose stool. , Routine Given 01/09/2024 8:19 AM EDT 17 g senna-docusate (Pericolace) 8.6-50 mg per tablet 2 tablet 2 tablet, Oral, 2 TIMES DAILY, First dose on Fri01/08/24 at 0900, Until Discontinued, Hold for loose stool. , Routine Given 01/09/2024 8:19 AM EDT 2 tablets sodium chloride 0.9 % (flush) (BD PosiFlush Normal Saline 0.9) flush 5 mL 5 mL, Intravenous, 2 TIMES DAILY, First dose on Lisa 01/08/24 at 0900, Until Discontinued, Routine Given 01/09/2024 8:25 AM EDT 5 mLs Given 01/08/2024 8:21 PM EDT 5 mLs Given 01/08/2024 10:00 AM EDT 5 mLs tamsulosin (Flomax) capsule 0.4 mg 0.4 mg, Oral, DAILY, First dose on Lisa 01/08/24 at 0900, Until Discontinued, DO NOT CRUSH OR CHEW, Routine Given 01/09/2024 8:18 AM EDT 0.4 mg Given 01/08/2024 9:29 AM EDT 0.4 mg documented in this encounter Active and Recently Administered Medications Times are shown in EDT. Scheduled Medication Order 01/07/2024 01/08/2024 01/09/2024 allopurinoL (Zyloprim) tablet 50 mg 50 mg, Oral, DAILY, First dose on Lisa 01/08/24 at 0900, Until Discontinued, Routine 926 (Given - Provider: Xena Emerson RN) 817 (Given - Provider: Xena Emerson RN) AMIOdarone (Pacerone) tablet 200 mg 200 mg, Oral, DAILY, First dose on Lisa 01/08/24 at 0900, Until Discontinued, Routine 926 (Given - Provider: Xena Emerson RN) 818 (Given - Provider: Xena Emerson RN - Comment: Pt not required telemetry) apixaban (Eliquis) tablet 2.5 mg 2.5 mg, Oral, 2 TIMES DAILY, First dose on Lisa 01/08/24 at 0900, Until Discontinued, Anticoagulant, Routine, apixaban (Eliquis) Indication: Non-Valvular Atrial Fibrillation 927 (Given - Provider: Xena Emerson RN)2018 (Given - Provider: Екатерина Archibald RN) 817 (Given - Provider: Xena Emerson RN) atorvastatin (Lipitor) tablet 40 mg 40 mg, Oral, EVERY EVENING, First dose on Lisa 01/08/24 at 1700, Until Discontinued, Routine 173 (Given - Provider: Jia Jama RN) furosemide (Lasix) tablet 80 mg 80 mg, Oral, DAILY, First dose on Lisa 01/08/24 at 0900, Until Discontinued, Routine 09 (Given - Provider: Xena Emerson, MARILYN) 0818 (Given - Provider: Xena Emerson RN) insulin glargine-ygfn (Semglee) (100 unit/mL) subcutaneous injection vial 6 Units (CANCELED) 6 Units, Subcutaneous, NIGHTLY, First dose on Lisa 01/08/24 at 2100, Until Discontinued, Routine 2020 (Given - Provider: Екатерина Archibald RN) insulin lispro (HumaLOG;Admelog) (100 unit/mL) subcutaneous injection vial 0-6 Units (CANCELED) 0-6 Units, Subcutaneous, 3 TIMES DAILY WITH MEALS, First dose on Lisa 01/08/24 at 0845, Until Discontinued, [employer] Give 1 unit for every 20 grams carbohydrate. Hold if not eating or if BG less than 70 mg/dL., Routine 1051 (Given - Provider: Xena Emerson RN)1504 (Given - Provider: Jia Jama RN - Comment: Just ate breakfast at 11)1700 (Not Given - Provider: Jia Jama RN - Reason: See comment - Comment: Patient did not eat more than 20 grams) insulin lispro (HumaLOG;Admelog) (100 unit/mL) subcutaneous injection vial 1-4 Units(Linked Group 1) 1-4 Units, Subcutaneous, EVERY 4 HOURS SCHEDULED, First dose on Lisa 01/08/24 at 0845, Until Discontinued, CORRECTION BOLUS [1-4 Units] Sensitive Sliding Scale (BG in mg/dL): Correction factor 40 (1 unit of insulin is expected to drop the glucose 40 mg/dL) ?? BG 160 - 200 Give 1 unit BG 201 - 240 Give 2 units BG 241 - 280 Give 3 units and recheck BG in 2 hours. BG greater than 280, give 4 units and recheck BG in 2 hours. - If recheck BG is LESS than 280, give no insulin and resume schedule - If recheck BG is GREATER than or EQUAL to 280, give 4 units and repeat BG in 2 hours (no more than 3 times)??& call for new insulin orders. DO NOT hold if NPO, unless specifically directed to do so by written order. ?? Per Inpatient Subcutaneous Insulin Policy, recheck a BG of greater than 240 mg/dL in 2 hours., Routine 1052 (Given - Provider: Xena Emerson RN)1505 (Given - Provider: Jia Jama RN)1830 (Hold - Provider: Jia Jama RN - Reason: Order parameters not met - Comment: pt just ate lunch)1937 (Not Given - Provider: Екатерина Archibald RN - Reason: Order parameters not met) 0011 (Not Given - Provider: Екатерина Archibald RN - Reason: Order parameters not met)0309 (Not Given - Provider: Екатерина Archibald RN - Reason: Order parameters not met)0831 (Given - Provider: Xena Emerson RN - Comment: B)1200 (Not Given - Provider: Xena Emerson RN - Reason: Order parameters not met - Comment: B)1600 (Due) lisinopriL (Zestril) tablet 5 mg 5 mg, Oral, DAILY, First dose on Lisa 01/08/24 at 0930, Until Discontinued, Routine 1024 (Given - Provider: Xena Emerson RN) 0819 (Given - Provider: Xena Emerson RN) polyethylene glycoL (Miralax) packet 17 g 17 g, Oral, DAILY, First dose on Lisa 01/08/24 at 0900, Until Discontinued, Hold for loose stool. , Routine 09 (Not Given - Provider: Xena Emerson RN - Reason: See comment - Comment: Loose bm this am) 0819 (Given - Provider: Xena Emerson RN) senna-docusate (Pericolace) 8.6-50 mg per tablet 2 tablet 2 tablet, Oral, 2 TIMES DAILY, First dose on Lisa 01/08/24 at 0900, Until Discontinued, Hold for loose stool. , Routine 926 (Not Given - Provider: Xena Emerson RN - Reason: See comment - Comment: Loose bm this morning)2019 (Not Given - Provider: Екатерина Archibald RN - Reason: Patient/family refused) 0819 (Given - Provider: Xena Emerson RN) sodium chloride 0.9 % (flush) (BD PosiFlush Normal Saline 0.9) flush 5 mL 5 mL, Intravenous, 2 TIMES DAILY, First dose on Lisa 01/08/24 at 0900, Until Discontinued, Routine 1000 (Given - Provider: Xena Emerson RN)2020 (Given - Provider: Екатерина Archibald, MARILYN) 824 (Given - Provider: Xena Emerson RN) tamsulosin (Flomax) capsule 0.4 mg 0.4 mg, Oral, DAILY, First dose on Lisa 01/08/24 at 0900, Until Discontinued, DO NOT CRUSH OR CHEW, Routine 09 (Given - Provider: Xena Emerson RN) 08 (Given - Provider: Xena Emerson, RN) PRN Medication Order 01/07/2024 01/08/2024 01/09/2024 acetaminophen (Tylenol) tablet 650 mg 650 mg, Oral, EVERY 6 HOURS PRN, Starting on Lisa 01/08/24 at 0739, Until Fri01/09/24 at 1836, Pain, Fever, Administer for pain or temperature greater than or equal to 38.2 degrees Celsius. Maximum daily dose of acetaminophen from all sources not to exceed 4,000 mg. When ordered for pain, acetaminophen should be given even when other ordered pain medications are indicated., Routine 1449 (Given - Provider: Xena Emerson RN)2019 (Given - Provider: Екатерина Archibald, MARILYN) 1124 (Given - Provider: Xena Emerson, MARILYN - Comment: abd, back pain) bisacodyL (Dulcolax) suppository 10 mg(Linked Group 2) 10 mg, Rectal, DAILY PRN, Starting on Lisa 01/08/24 at 0739, Until Fri01/09/24 at 1836, Constipation, Give if no BM within last 24 hr and rectal fullness is reported or assessed. Give concomitantly with any scheduled bowel medications ordered. , Routine bisacodyl EC (Dulcolax) tablet 10 mg(Linked Group 2) 10 mg, Oral, 2 TIMES DAILY PRN, Starting on Lisa 01/08/24 at 0739, Until Fri01/09/24 at 1836, Constipation, Give if no BM after 24 hr after prior interventions. BM expected in 6-8 hours. If BM desired sooner, use next ordered agent. Give concomitantly with any scheduled bowel medications ordered., Routine dextrose 10% infusion(Linked Group 3) 250 mL, at 1,000 mL/hr, Intravenous, EVERY 15 MIN PRN, Starting on Lisa 01/08/24 at 0814, Until Fri01/09/24 at 1836, For BG 50-70 mg/dL: Oral treatment preferred: If able to drink, give 120 mL juice or regular (not diet) soda OR if NPO, give 15 gram glucose 40% oral gel massaged into buccal mucosa OR if unconscious or uncooperative, give 25 gram (250 mL) dextrose 10% IV over 15 minutes per protocol OR, if no IV access, 1 mg glucagon IM. For BG less than 50 mg/dL: Oral treatment preferred: If able to drink, give 240 mL juice or regular (not diet) soda OR if NPO, give 30 gram glucose 40% oral gel massaged in buccal mucosa OR if unconscious or uncooperative, give 25 gram (250 mL) dextrose 10% IV over 15 minutes per protocol OR, if no IV access, 1 mg glucagon IM. Recheck BG in 15 minutes. May repeat juice/soda, gel, dextrose or glucagon once per episode. Notify provider if hypoglycemia does not resolve after two treatments. Providers should consider the following: administering longer-acting treatments for the duration of active insulin or hypoglycemia agent for persistent hypoglycemia and re-evaluating active insulin orders before administering the next dose. glucagon (Glucagen) (1 mg/mL) injection solution 1 mg(Linked Group 3) 1 mg, Intramuscular, EVERY 15 MIN PRN, Starting on Lisa 01/08/24 at 0814, Until Fri01/09/24 at 1836, Low blood sugar, For BG 50-70 mg/dL: Oral treatment preferred: If able to drink, give 120 mL juice or regular (not diet) soda OR if NPO, give 15 gram glucose 40% oral gel massaged into buccal mucosa OR if unconscious or uncooperative, give 25 gram (250 mL) dextrose 10% IV over 15 minutes per protocol OR, if no IV access, 1 mg glucagon IM. For BG less than 50 mg/dL: Oral treatment preferred: If able to drink, give 240 mL juice or regular (not diet) soda OR if NPO, give 30 gram glucose 40% oral gel massaged in buccal mucosa OR if unconscious or uncooperative, give 25 gram (250 mL) dextrose 10% IV over 15 minutes per protocol OR, if no IV access, 1 mg glucagon IM. Recheck BG in 15 minutes. May repeat juice/soda, gel, dextrose or glucagon once per episode. Notify provider if hypoglycemia does not resolve after two treatments. Providers should consider the following: administering longer-acting treatments for the duration of active insulin or hypoglycemia agent for persistent hypoglycemia and re-evaluating active insulin orders before administering the next dose. , Routine glucose (Glutose) 40% oral geL(Linked Group 3) 15-30 g of glucose, Buccal, EVERY 15 MIN PRN, Starting on Lisa 01/08/24 at 0814, Until Fri01/09/24 at 1836, Low blood sugar, For BG 50-70 mg/dL: Oral treatment preferred: If able to drink, give 120 mL juice or regular (not diet) soda OR if NPO, give 15 gram glucose 40% oral gel massaged into buccal mucosa OR if unconscious or uncooperative, give 25 gram (250 mL) dextrose 10% IV over 15 minutes per protocol OR, if no IV access, 1 mg glucagon IM. For BG less than 50 mg/dL: Oral treatment preferred: If able to drink, give 240 mL juice or regular (not diet) soda OR if NPO, give 30 gram glucose 40% oral gel massaged in buccal mucosa OR if unconscious or uncooperative, give 25 gram (250 mL) dextrose 10% IV over 15 minutes per protocol OR, if no IV access, 1 mg glucagon IM. Recheck BG in 15 minutes. May repeat juice/soda, gel, dextrose or glucagon once per episode. Notify provider if hypoglycemia does not resolve after two treatments. Providers should consider the following: administering longer-acting treatments for the duration of active insulin or hypoglycemia agent for persistent hypoglycemia and re-evaluating active insulin orders before administering the next dose. 1 tube of Glutose-15 contains 15 grams of glucose (net weight of tube = 37.5 grams.), Routine lactulose (Chronulac) (0.67 gram/mL) oral liquid 20 g(Linked Group 2) 20 g, Oral, DAILY PRN, Starting on Fri01/08/24 at 0739, Until Fri01/09/24 at 1836, Constipation, Give if no BM 24 hr after prior interventions or if BM is desired within 2 hr. Give concomitantly with any scheduled bowel medications ordered, Routine lactulose (Chronulac) (0.67 gram/mL) oral liquid 20 g(Linked Group 2) 20 g, Oral, DAILY PRN, Starting on Lisa 01/08/24 at 0739, Until Fri01/09/24 at 1836, Constipation, Give an additional (2nd) dose of lactulose 2 hr after 1st dose if still no BM. Disregard if 1st dose of lactulose not ordered. Give concomitantly with any scheduled bowel medications ordered. , Routine lidocaine (Xylocaine) 1% (10 mg/mL) injection 3 mg 3 mg (0.3 mL), Subcutaneous, ONCE PRN, 1 dose, Starting on Lisa 01/08/24 at 0739, Until Fri01/09/24 at 1836, for discomfort with PIV insertion, Routine lidocaine (Xylocaine) 1% (10 mg/mL) injection 3 mg 3 mg (0.3 mL), Subcutaneous, ONCE PRN, 1 dose, Starting on Fri01/08/24 at 0830, Until Fri01/09/24 at 1836, for discomfort with PIV insertion, Routine magnesium citrate oral liquid 296 mL(Linked Group 2) 296 mL, Oral, ONCE PRN, 1 dose, Starting on Fri01/08/24 at 0739, Until Fri01/09/24 at 1836, Constipation, Give if no BM 2 hr after previous interventions. If 2 hr after mag citrate there is still no BM, see order for tap water enema, if placed. Give concomitantly with any scheduled bowel medications ordered., Routine melatonin tablet 3 mg 3 mg, Oral, NIGHTLY PRN, Starting on Fri01/08/24 at 0739, Until Fri01/09/24 at 1836, Sleep, Sleep, Routine ondansetron (pf) (Zofran) (2 mg/mL) injection 4 mg(Linked Group 4) 4 mg, Intravenous, EVERY 8 HOURS PRN, Starting on Lisa 01/08/24 at 0739, Until Fri01/09/24 at 1836, Nausea, 4 mg,Oral,EVERY 8 HOURS PRN, Nausea,Vomiting If multiple antiemetics are ordered, use ondansetron first. May repeat times one in 30 minutes if ineffective. ondansetron ODT (Zofran-ODT) disintegrating tablet 4 mg(Linked Group 4) 4 mg, Oral, EVERY 8 HOURS PRN, Starting on Fri01/08/24 at 0739, Until Fri01/09/24 at 1836, Nausea, If multiple antiemetics are ordered, use ondansetron first. PO Preferred. If patient unable to take PO, may give IV if ordered. May repeat times one in 45 minutes if ineffective. , Routine polyethylene glycoL (Miralax) packet 17 g(Linked Group 2) 17 g, Oral, DAILY PRN, Starting on Fri01/08/24 at 0739, Until Fri01/09/24 at 1836, Constipation, Give if no BM within last 24 hr. Give concomitantly with any scheduled bowel medications ordered. , Routine sodium chloride 0.9 % (flush) (BD PosiFlush Normal Saline 0.9) flush 5-20 mL 5-20 mL, Intravenous, EVERY 1 MIN PRN, Starting on Fri01/08/24 at 0739, Until Fri01/09/24 at 1836, flush, Flush pertains to all indwelling lines. Flush per protocol found in the job aid using the link provided on this medication record., Routine sodium chloride 0.9 % (flush) (BD PosiFlush Normal Saline 0.9) flush 5-20 mL 5-20 mL, Intravenous, EVERY 1 MIN PRN, Starting on Fri01/08/24 at 0830, Until Fri01/09/24 at 1836, flush, Flush pertains to all indwelling lines. Flush per protocol found in the job aid using the link provided on this medication record., Routine Linked Groups Order Group 1: POCT Fingerstick Glucose (CANCELED) Routine, EVERY 4 HOURS, First occurrence on Fri01/08/24 at 0830, Until Specified, Consider choosing EVERY 4 HOURS as frequency for: - Type 1 Diabetes - At least 24 hours after coming off an insulin drip - At least 24 hours after admission for DKA - Hypoglycemia unawareness - Patients who are otherwise unstable Select the same frequency for the correction bolus insulin order And insulin lispro (HumaLOG;Admelog) (100 unit/mL) subcutaneous injection vial 1-4 UnitsJump to med 1-4 Units, Subcutaneous, EVERY 4 HOURS SCHEDULED, First dose on Fri01/08/24 at 0845, Until Discontinued, CORRECTION BOLUS [1-4 Units] Sensitive Sliding Scale (BG in mg/dL): Correction factor 40 (1 unit of insulin is expected to drop the glucose 40 mg/dL) ?? BG 160 - 200 Give 1 unit BG 201 - 240 Give 2 units BG 241 - 280 Give 3 units and recheck BG in 2 hours. BG greater than 280, give 4 units and recheck BG in 2 hours. - If recheck BG is LESS than 280, give no insulin and resume schedule - If recheck BG is GREATER than or EQUAL to 280, give 4 units and repeat BG in 2 hours (no more than 3 times)??& call for new insulin orders. DO NOT hold if NPO, unless specifically directed to do so by written order. ?? Per Inpatient Subcutaneous Insulin Policy, recheck a BG of greater than 240 mg/dL in 2 hours., Routine Group 2: polyethylene glycoL (Miralax) packet 17 gJump to med 17 g, Oral, DAILY PRN, Starting on Fri01/08/24 at 0739, Until Fri01/09/24 at 1836, Constipation, Give if no BM within last 24 hr. Give concomitantly with any scheduled bowel medications ordered. , Routine And bisacodyL (Dulcolax) suppository 10 mgJump to med 10 mg, Rectal, DAILY PRN, Starting on Fri01/08/24 at 0739, Until Fri01/09/24 at 1836, Constipation, Give if no BM within last 24 hr and rectal fullness is reported or assessed. Give concomitantly with any scheduled bowel medications ordered. , Routine And bisacodyl EC (Dulcolax) tablet 10 mgJump to med 10 mg, Oral, 2 TIMES DAILY PRN, Starting on Fri01/08/24 at 0739, Until Fri01/09/24 at 1836, Constipation, Give if no BM after 24 hr after prior interventions. BM expected in 6-8 hours. If BM desired sooner, use next ordered agent. Give concomitantly with any scheduled bowel medications ordered., Routine And lactulose (Chronulac) (0.67 gram/mL) oral liquid 20 gJump to med 20 g, Oral, DAILY PRN, Starting on Fri01/08/24 at 0739, Until Fri01/09/24 at 1836, Constipation, Give if no BM 24 hr after prior interventions or if BM is desired within 2 hr. Give concomitantly with any scheduled bowel medications ordered, Routine And lactulose (Chronulac) (0.67 gram/mL) oral liquid 20 gJump to med 20 g, Oral, DAILY PRN, Starting on Lisa 01/08/24 at 0739, Until Fri01/09/24 at 1836, Constipation, Give an additional (2nd) dose of lactulose 2 hr after 1st dose if still no BM. Disregard if 1st dose of lactulose not ordered. Give concomitantly with any scheduled bowel medications ordered. , Routine And magnesium citrate oral liquid 296 mLJump to med 296 mL, Oral, ONCE PRN, 1 dose, Starting on Lisa 01/08/24 at 0739, Until Fri01/09/24 at 1836, Constipation, Give if no BM 2 hr after previous interventions. If 2 hr after mag citrate there is still no BM, see order for tap water enema, if placed. Give concomitantly with any scheduled bowel medications ordered., Routine And Tap water enema (CANCELED) Routine, DAILY PRN, Starting on Lisa 01/08/24 at 0739, Until Specified, Give if no BM in at least 24 hr and all other ordered bowel regimen medications have been unsuccessful. Give concomitantly with any scheduled bowel medications ordered. Group 3: glucose (Glutose) 40% oral geLJump to med 15-30 g of glucose, Buccal, EVERY 15 MIN PRN, Starting on Lisa 01/08/24 at 0814, Until Fri01/09/24 at 1836, Low blood sugar, For BG 50-70 mg/dL: Oral treatment preferred: If able to drink, give 120 mL juice or regular (not diet) soda OR if NPO, give 15 gram glucose 40% oral gel massaged into buccal mucosa OR if unconscious or uncooperative, give 25 gram (250 mL) dextrose 10% IV over 15 minutes per protocol OR, if no IV access, 1 mg glucagon IM. For BG less than 50 mg/dL: Oral treatment preferred: If able to drink, give 240 mL juice or regular (not diet) soda OR if NPO, give 30 gram glucose 40% oral gel massaged in buccal mucosa OR if unconscious or uncooperative, give 25 gram (250 mL) dextrose 10% IV over 15 minutes per protocol OR, if no IV access, 1 mg glucagon IM. Recheck BG in 15 minutes. May repeat juice/soda, gel, dextrose or glucagon once per episode. Notify provider if hypoglycemia does not resolve after two treatments. Providers should consider the following: administering longer-acting treatments for the duration of active insulin or hypoglycemia agent for persistent hypoglycemia and re-evaluating active insulin orders before administering the next dose. 1 tube of Glutose-15 contains 15 grams of glucose (net weight of tube = 37.5 grams.), Routine Or dextrose 10% infusionJump to med 250 mL, at 1,000 mL/hr, Intravenous, EVERY 15 MIN PRN, Starting on Lisa 01/08/24 at 0814, Until Fri01/09/24 at 1836, For BG 50-70 mg/dL: Oral treatment preferred: If able to drink, give 120 mL juice or regular (not diet) soda OR if NPO, give 15 gram glucose 40% oral gel massaged into buccal mucosa OR if unconscious or uncooperative, give 25 gram (250 mL) dextrose 10% IV over 15 minutes per protocol OR, if no IV access, 1 mg glucagon IM. For BG less than 50 mg/dL: Oral treatment preferred: If able to drink, give 240 mL juice or regular (not diet) soda OR if NPO, give 30 gram glucose 40% oral gel massaged in buccal mucosa OR if unconscious or uncooperative, give 25 gram (250 mL) dextrose 10% IV over 15 minutes per protocol OR, if no IV access, 1 mg glucagon IM. Recheck BG in 15 minutes. May repeat juice/soda, gel, dextrose or glucagon once per episode. Notify provider if hypoglycemia does not resolve after two treatments. Providers should consider the following: administering longer-acting treatments for the duration of active insulin or hypoglycemia agent for persistent hypoglycemia and re-evaluating active insulin orders before administering the next dose. Or glucagon (Glucagen) (1 mg/mL) injection solution 1 mgJump to med 1 mg, Intramuscular, EVERY 15 MIN PRN, Starting on Lisa 01/08/24 at 0814, Until Fri01/09/24 at 1836, Low blood sugar, For BG 50-70 mg/dL: Oral treatment preferred: If able to drink, give 120 mL juice or regular (not diet) soda OR if NPO, give 15 gram glucose 40% oral gel massaged into buccal mucosa OR if unconscious or uncooperative, give 25 gram (250 mL) dextrose 10% IV over 15 minutes per protocol OR, if no IV access, 1 mg glucagon IM. For BG less than 50 mg/dL: Oral treatment preferred: If able to drink, give 240 mL juice or regular (not diet) soda OR if NPO, give 30 gram glucose 40% oral gel massaged in buccal mucosa OR if unconscious or uncooperative, give 25 gram (250 mL) dextrose 10% IV over 15 minutes per protocol OR, if no IV access, 1 mg glucagon IM. Recheck BG in 15 minutes. May repeat juice/soda, gel, dextrose or glucagon once per episode. Notify provider if hypoglycemia does not resolve after two treatments. Providers should consider the following: administering longer-acting treatments for the duration of active insulin or hypoglycemia agent for persistent hypoglycemia and re-evaluating active insulin orders before administering the next dose. , Routine Group 4: ondansetron ODT (Zofran-ODT) disintegrating tablet 4 mgJump to med 4 mg, Oral, EVERY 8 HOURS PRN, Starting on Lisa 01/08/24 at 0739, Until Fri01/09/24 at 1836, Nausea, If multiple antiemetics are ordered, use ondansetron first. PO Preferred. If patient unable to take PO, may give IV if ordered. May repeat times one in 45 minutes if ineffective. , Routine Or ondansetron (pf) (Zofran) (2 mg/mL) injection 4 mgJump to med 4 mg, Intravenous, EVERY 8 HOURS PRN, Starting on Lisa 01/08/24 at 0739, Until Fri01/09/24 at 1836, Nausea, 4 mg,Oral,EVERY 8 HOURS PRN, Nausea,Vomiting If multiple antiemetics are ordered, use ondansetron first. May repeat times one in 30 minutes if ineffective. documented in this encounter Care Teams Calibration Laboratory Technician Relationship Specialty Start Date End Date Rolando Moise MD PCP - General Family Medicine 09/16/16 documented as of this encounter
--- OUTSIDE RECORDS SUMMARY | 2024-01-25 13:41 | XMS_ITS | Encounter Summary ---
Author Organization [facility] [place] [address] Care Team Providers Care Gear Grinder Name Role Phone Rolando Moise MD Primary Care Provider [phone] Encounter Details Date Type Department Care Team (Late st Contact Info) Description 12/16/2023 [place]phone [place] [address] Nimisha Olmos Social History Tobacco [...] 12:15 PM EDT Laboratory Appointment Lab [address] [place] [phone] 02/02/2024 2:[address] [place] [address] Pascale Barboza, RAD[facility] [place] [address] 02/02/2024 2:30 PM EDT Office Visit [place] [address] Erik Gill MD [facility] [place] [address] documented as of this encounter Visit Diagnoses Not on filedocumented in this encounter Care Teams Gear Grinder Relationship Specialty Start Date End Date Rolando Moise MD PCP - General Family Medicine 09/16/16 documented as of this encounter
--- OUTSIDE RECORDS SUMMARY | 2024-01-25 13:41 | XMS_ITS | Encounter Summary ---
[facility] [place] [address] Care Team Providers Care Field Artillery Operations Man Name Role Phone Rolando Moise MD Primary Care Provider [phone] Encounter Details Date Type Department Care Team (Late st Contact Info) Description 01/08/2024 5:05 AM EDT Ancillary Procedure Radiology Library at [facility] [place] [address] Ángel Martin, [facility] [place] [address] Social History Tobacco Use Types Packs/Day Years Used Date Smoking Tobacco: Former Pipe Q uit: 02/07/2017 Smokeless Tobacco: Never Alcohol Use Standard Drinks/Week Comments No 0 (1 standard drink = 0.6 oz pur e alcohol) [facility] Utilities Answer Date Recorded In the past 12 months has e 1d4 Pty, gas, oil, or water [employer] threatened to shut off services in your [...] any time in the past 12 m onths, were you homeless or living in a [place] facility (including now)? No 01/08/2024 IPV Inpatient Questions [...] 12:15 PM EDT Laboratory Appointment Lab [address] [place] [address] 02/02/2024 2:[address] [place] [phone] Pascale Barboza APRN [facility] [place] [address] 02/02/2024 2:30 PM EDT Office Visit [place] [address] Erik Gill MD [facility] [place] [address] documented as of this encounter Procedures Procedure Name Priority Date/Time Associated Diagnosis Comments FILM LIBRARY STORAGE ONLY DX CHEST Routine 01/08/2024 5:03 AM EDT documented in this encounter Results * Film Library- Storage Only DX Chest (01/08/2024 5:03 AM EDT) Narrative DOMINGO WALLER - 01/08/2024 5:03 AM EDT This exam is auto-finalizing. It's purpose is for storage only. Ángel Martin DO IMG FILM LIBRARY O RDERABLES [place], [place] documented in this encounter Visit Diagnoses Not on filedocumented in this encounter Care Teams Field Artillery Operations Man Relationship Specialty Start Date End Date Rolando Moise MD PCP - General Family Medicine 09/16/16 documented as of this encounter
--- OUTSIDE RECORDS SUMMARY | 2024-01-25 13:42 | XMS_ITS | Encounter Summary ---
Author Organization [facility] Address [facility] [place] [address] Care Team Providers Care Advisory Software Engineer Name Role Phone Rolando Moise MD Primary Care Provider [phone] Reason for Visit * Reason Comments Follow-up Coronary Artery Disease Encounter Details Date Type Department Care Team (Latest Contact Info) Description 09/22/2017 4:00 PM EDT Office Visit Cardiology at [address] [address] Shoshana Moyer APRN [facility] [place] [address] ASCVD (arteriosclerotic cardiovascular disease); Hypertension, unspecified type; [...] 3 months. Please call our clinic at [phone] if you have any further concerns prior to your next appointment. documented in this encounter Progress Notes * Shoshana Moyer APRN - 09/22/2017 4:00 PM EDT Images from the original note were not included. [facility] 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 [...] 12:15 PM EDT Laboratory Appointment Lab [address] [place] [address] 02/02/2024 2:[address] [place] [address] Pascale Barboza APRN [facility] [place] [address] 02/02/2024 2:30 PM EDT Office Visit [place] [address] Erik Gill MD [facility] [place] [address] documented as of this encounter Visit Diagnoses Diagnosis ASCVD (arteriosclerotic cardiovascular disease) Unspecified cardiovascular disease Hypertension, unspecified type Cardiomyopathy, ischemic Other specified forms of chronic ischemic heart disease documented in this encounter Care Teams Advisory Software Engineer Relationship Specialty Start Date End Date Rolando Moise MD PCP - General Family Medicine 09/16/16 documented as of this encounter
--- OUTSIDE RECORDS SUMMARY | 2024-01-25 13:42 | XMS_ITS | Encounter Summary ---
Author Organization [facility] Address [facility] [place] [address] Care Team Providers Care Gm Video Name Role Phone Rolando Moise MD Primary Care Provider Encounter Details Date Type Department Care Team (Late st Contact Info) Description 07/19/2018 [place] [phone] Suzanna Krueger MD [facility] [place] [address] Social History Tobacco Use Types Packs/Day Years [...] ~1830 Referring Provider: Dr. Conner Patient Location: [facility] Reason for call: consultation, request for [...] 02/02/2024 12:15 PM EDT Laboratory Appointment Lab [address] [address] 02/02/2024 2:[address] [place] [phone] Pascale Barboza APRN [facility] [place] [address] 02/02/2024 2:30 PM EDT Office [place] [phone] Erik Gill MD [facility] [place] [address] documented as of this encounter Visit Diagnoses Not on filedocumented in this encounter Care Teams Gm Video Relationship Specialty Start Date End Date Rolando Moise MD PCP - General Family Medicine 09/16/16 documented as of this encounter
--- OUTSIDE RECORDS SUMMARY | 2024-01-25 13:42 | XMS_ITS | Encounter Summary ---
Author Organization [facility] [place] [address] Care Team Providers Care Java Portal Developer Name Role Phone Arely Moise MD Primary Care Provider Reason for Referral * Consultation (Routine) - Closed Specialty Diagnoses / Procedures Referred By Contact Referred To Contact Cardiac Rehabilitation Diagnoses Non-ST elevation myocardial infarction (NSTEMI) Bayron Oliva MD [facility] [place] [address] Cardiac Rehab, [address] [place] [address] Referral ID Status Reason Start Date Expiration Date V isits Requested Visits Authorized [id number] Closed Consult, Test & Treat 02/05/2017 08/04/2017 36 36 Reason for Visit * Auth/Cert Specialty Diagnoses / Procedures Referred By Contac t Referred To Contact Diagnoses NSTEMI (non-ST elevated myocardial infarction) NSTEMI ?CAD Procedures CARDIAC CATHETERIZATION Referral ID Status Reason Start Date Expiration Date Visits Re quested Visits Authorized [id number] 1 1 Encounter Details Date Type Department Care Team (Latest Contact Info) Description 02/03/2017 8:29 AM EDT - 02/05/2017 11:44 AM EDT Hospital Encounter [place] [id number] Inder Medley MD [facility] [place] [address] Bayron Oliva MD [facility] [place] [address] Non-ST elevation myocardial infarction (NSTEMI) Discharge Disposition: [...] for 12 months otherwise told differently by Parts Advisor. 2. Please monitor heart rate and blood pressure. 3. Start metoprolol XL 100 mg daily 4. Discontinue verapamil 120 mg tablet PO 5. Resume metformin 500 mg tablet PO two times a day, needs to take his second metformin dose tonight. Inpatient Provider Contact Information: Lili Ryan PA-C [facility] Provider # [id number] Discharge Diagnoses (Hospital Problems) and Secondary Diagnoses [...] of hypertension, AAA, hyperlipidemia and diabetes mellitus [id number] who presented to [facility] with complaint of inability to sleep [...] is most likely a non-STEMI. ED called [facility] cardiology which recommended to start Plavix 300 mg orally and was started to heparin per ACS protocol. ?? Hospital Course: On admission to [facility], the patient had complaints of chest pain and some shortness of breath with exertion. Telemetry was attached which showed normal sinus rhythm. Heparin drip was infusing. [facility] records/transfer records were reviewed. Baseline labs were checked and/or drawn. NSTEMI Given the patient's risk factors and ECG changes, positive biomarkers, it was decided to proceed with coronary angiography. The patient went to the cardiac forestry laborer for a diagnostic cath which showedone [...] 2:00 PM Shoshana Gaspar APRN Cardiology at [place] [phone] Future Orders Complete By Expires Referral to Cardiac Rehab [[id number] Custom] As directed Process Instructions: If no progress note charted, please enter Clinical details in comments. Scheduling Instructions: Questions: My question or request is: NSTEMI, PCI. Cardiac rehab at [facility] Discharge References/Attachments MYRA INHIBITORS AND ARBS: GENERAL INFO ([place]) PCI (PERCUTANEOUS CORONARY INTERVENTION): POST-OP ([place]) HYPERTENSION: GENERAL INFO ([place]) Lili Ryan PA-C 02/05/2017 documented in this encounter Discharge Instructions * Discharge Instructions* Shoshana Gaspar APRN - 02/05/2017 10:31 AM EDT Anti-coagulation follow up: Continue on plavix and aspirin for at least 12 months until otherwise told by his Parts Advisor. Call your doctor if: Chest pain, shortness of breath, pain or swelling in legs occurs. If you have non-emergent questions between now and the time of your follow up appointments: During 8am-5pm Friday through Friday call [phone] to speak with a nurse in the cardiology clinic All other times call [phone] and ask to speak to the continuous improvement lead retort feeder ground bone. Return to work: One week Driving: No driving for 48 hours after catheterization. Follow up Appointments: PCP Arely Moise MD [phone] Your follow up appointment is scheduled for February 12, 2017 at 10:00 am Cardiology [facility] : Shoshana Gaspar NP Your follow up appointment is scheduled for March at 1:45 pm. Resume metformin 500 mg tablet PO two times a day tonight (02/05) for evening dose * Attachments The following attachments cannot be sent through Care Everywhere. 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 - continue Atorvastin, lisinopril. - Discontinue short [...] between care. SR/ST on tele with 1'AVB (MA 0.24), frequent PACs, occasional NS atrial trigem, HR 45-107. Pt sats well on RA; denied pain/discomfort and SOB throughout the shift. 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 PLAN MOVING FORWARD: [...] Progress Note Patient Name: Cesar Thompson Service: SOCIAL SERVICES COORDINATOR / PA Responsible Attending: Bayron Oliva MD [...] 81 mg daily for 12 months per employment programs analyst. - continue Atorvastin 40 mg daily - [...] of hypertension, AAA, hiperlididemia and diabetes mellitus [id number] who presented to [facility] with complaint of inability to sleep [...] is most likely a non-STEMI. ED called [facility] cardiology which recommended to start Plavix 300 [...] REPAIR, GORE performed by ACACIA BRYANT at [facility] MAIN OR ??? PRO AAA REPAIR, MODULR BIFUR PROSTH, 2-DOCK 04/12/2011 @EVG, AAA, W\ MODULAR BIFURCATED PROS. W\ 2 DOCKING LIMBS performed by ACACIA BRYANT at [facility] MAIN OR ??? PRO AAA REPR, EXPOSE FEMORAL ART, GROIN INCIS 04/12/2011 @EXPOSURE, OPEN FEM. ARTERY FOR ENDOVASCULAR PROSTHESIS, GROIN-FABIANA performed by ACACIA BRYANT at [facility] MAIN OR ? ? PRO ENDOVASC REPAIR INFRARENAL AAA/DISSECTION S&I 04/12/2011 @EVG, INFRARENAL AAA OR DISSECTION, S&I performed by ACACIA BRYANT at [facility] MAIN OR Significant Family History: No family [...] Take 0.4 mg by mouth daily. ??? Ophir-3 Fatty Acids-Vitamin E (FISH OIL) 1,000 mg [...] of hypertension, AAA, hiperlididemia and diabetes mellitus krz-eknrwdt-obkldnxuf who presents to [facility] with complaint of inability to sleep [...] -check A1c Provider: QUINN Ness Provider #: [id number] 02/03/2017 Cardiology staff addendum I have discussed, [...] Office of Care Management Initial Assessment Shital Schimdt RN reviewed record and discussed patient with [...] S&I performed by ACACIA BRYANT at [facility] OR ??? PRO AAA REPAIR, 1ST VESSEL, EXTENSION PROSTH 04/12/2011 @EVG-PLACEMENT, CUFF OR EXT. AORTIC OR ILIAC ANEURYSM REPAIR, GORE performed by ACACIA BRYANT at [facility] OR ??? PRO AAA REPAIR, MODULR BIFUR PROSTH, 2-DOCK 04/12/2011 @EVG, AAA, W\ MODULAR BIFURCATED PROS. W\ 2 DOCKING LIMBS performed by ACACIA BRYANT at [facility] OR ??? PRO AAA REPR, EXPOSE FEMORAL ART, GROIN INCIS 04/12/2011 @EXPOSURE, OPEN FEM. ARTERY FOR ENDOVASCULAR PROSTHESIS, GROIN-FABIANA performed by ACACIA BRYANT at [facility] OR ? ? PRO ENDOVASC REPAIR INFRARENAL AAA/DISSECTION S&I 04/12/2011 @EVG, INFRARENAL AAA OR DISSECTION, S&I performed by ACACIA BRYANT at [facility] OR Hospitalizations Within the Past 30 [...] per patient Preferred Pharmacy: [facility]?? Other: [facility] mail order pharmacy Primary Care Provider: Arely Moise MD [phone] Patient/Caregiver Goals of Treatment: per medical team [...] of care planning. Shital Schmidt RN Pager: [phone] * Consult Note - Riya Kellogg RN [...] the outpatient cardiac rehabilitation program at [facility] was discussed. Patient agrees to a [...] 02/02/2024 12:15 PM EDT Laboratory Appointment Lab [address] [address] 02/02/2024 2:[address] [place] [phone] Pascale Barboza APRN [facility] [place] [address] 02/02/2024 2:30 PM EDT Office Visit [place] [phone] Erik Gill MD [facility] [place] [address] Scheduled Referrals Name Type Priority Associated Diagnoses Orde r Schedule Referral to Cardiac Rehab Outpatient Referral Routine Non-ST elevation myocardial infarction (NSTEMI) Ordered: 02/05/2017 documented as of this encounter Procedures Procedure Name Priority Date/Time Associated Diagnosis Comments GUN STOCK CHECKER SCAN 02/06/2017 12:00 AM EDT POCT GLUCOSE [...] 02/05/20 17 3:33 AM EDT CARDIAC ENZYMES ([facility]) Routine 02/04/2017 3:33 AM EDT CBC (WITH [...] Non-ST elevation myocardial infarction (NSTEMI) CARDIAC ENZYMES ([facility]) STAT 02/03/2017 9:00 PM EDT POCT GLUCOSE Routine 02/03/2017 8:29 PM EDT POCT GLUCOSE Routine 02/03/2017 4:54 PM EDT EKG 12-LEAD Routine 02/03/2017 4:43 PM EDT Non-ST elevation myocardial infarction (NSTEMI) CARDIAC CATHETERIZATION Routine 02/04/20 17 4:26 PM EDT CARDIAC ENZYMES ([facility]) Routine 02/03/2017 3:00 PM EDT TSH Routine [...] 02/04/20 17 9:35 AM EDT CARDIAC ENZYMES ([facility]) STAT 02/03/2017 9:35 AM EDT APTT STAT 02/03/2017 9:35 AM EDT PROTHROMBIN TIME STAT 02/03/2017 9:35 AM EDT CBC (WITH DIFF) Routine 02/03/2017 9:35 AM EDT PRO-BRAIN NATRIURETIC PEPTIDE STAT 02/03/2017 9:35 AM EDT BASIC METABOLIC PANEL STAT 02/03/2017 9:35 AM EDT EKG 12-LEAD STAT 02/03/2017 9:23 AM EDT Non-ST elevation myocardial infarction (NSTEMI) documented in this encounter Results * SCAN DOC: GUN STOCK CHECKER (02/06/2017 12:00 AM EDT) Anatomical Region Laterality Modality Other Narrative 02/06/2017 12:00 AM EDT Ordered by an unspecified provider. Scanning Provider MEDIA MGR SCAN EXT O RDR/RSLT * POCT Glucose (02/05/2017 7:32 AM EDT) [facility] Signature Glucose, POC 160 65 - 199 mg/dL [facility] Comment: Supplemental ranges: <140 mg/dL before meals <180 mg/dL all other times of the day Blood specimen (specimen) 02/05/2017 7:32 AM EDT 02/05/2017 7:32 AM EDT Bayron Oliva MD POINT OF CARE TEST O RDERABLES [facility] [place] [address] * EKG 12 Lead (02/05/2017 7:26 AM EDT) Ventricular rate 54 BPM MUSE SYSTEM Atrial Rate 54 BPM MUSE SYSTEM P-R Interval 214 ms MUSE SYSTEM QRS Duration 96 ms MUSE SYSTEM Q-T Interval 486 ms MUSE SYSTEM QTC Calculated (Bezet) 460 ms MUSE SYSTEM Calculated P [place] 14 degrees MUSE SYSTEM Calculated R [place] 112 degrees MUSE SYSTEM Calculated T [place] 143 degrees MUSE SYSTEM INTERPRETATION Sinus bradycardia [...] PM EDT Shoshana Moyer APRN ECG ORDERABLES MUSE SYSTEM * (ABNORMAL) Differential, Automated (02/05/2017 3:43 AM EDT) Neutrophil % 63.2 % [facility] Neutrophil Absolute 7.21(H) 1.70 - 6.10 x10(3)/mc L [facility] Lymph % 20.7 % [facility] Lymphocytes Abs 2.4 0.9 - 3.2 x10(3)/mc L [facility] Monocyte % 11.2 % [facility] Monocyte Abs 1.3(H) 0.3 - 0.9 x10(3)/mc L [facility] Eos % 4.1 % [facility] Eosinophils Abs 0.5(H) 0.0 - 0.4 x10(3)/mc L [facility] Basophil % 0.5 % [facility] Baso Absolute 0.1 0.0 - 0.1 x10(3)/mc L [facility] Immature Gran % 0.30 % [facility] Comment: Immature granulocytes(IG's)percentage and absolute count will include metamyelocytes, myelocytes, and promyelocytes. Blood smears from CBCs yielding IG's will be scanned manually for concordance. If this scan disagrees with the automated IG or if promyelocytes are noted, a manual differential will be performed. Immature Gran Absolute 0.03 0.00 - 0.04 x10(3)/mc L [facility] Blood specimen (specimen) 02/05/2017 3:43 AM EDT 02/05/2017 3:52 AM EDT Narrative Resulting Agency Comment Spec In Lab Shoshana Moyer APRN HEMATOLOGY ORDERABLE S [facility] [place] [address] * (ABNORMAL) Hemogram (02/05/2017 3:43 AM EDT) White Blood Cell 11.4(H) 4.0 - 9.5 x10(3)/mc L [facility] Red Blood Cell 4.48(L) 4.58 - 5.54 x10(6)/mc L [facility] Hemoglobin 14.0 13.7 - 16.5 gm/dL [facility] Hematocrit 41.1 40.5 - 48.5 % [facility] Mean Cell Volume 91.7 82.9 - 93.1 fL [facility] Mean Cell Hemoglobin 31.3 27.5 - 32.1 pg [facility] Mean Cell Hemoglobin Concentration 34.1 32.0 - 35.7 gm/dL [facility] Platelet 168 145 - 357 x10(3)/mc L [facility] RDW Standard Deviation 39.9 36.0 - 45.0 fL [facility] RDW coefficient of variation 11.8 11.4 - 13.8 % [facility] Mean Platelet Volume 10.2 7.6 - 12.9 fL [facility] NRBC% auto 0.0 % [facility] NRBC Absolute 0.000 0.000 - 0.000 x10(3)/mc L [facility] Blood specimen (specimen) 02/05/2017 3:43 AM EDT 02/05/2017 3:52 AM EDT Narrative Resulting Agency Comment Spec In Lab Shoshana Roach King RADHA HEMATOLOGY ORDERABLE S [facility] [place] [address] * (ABNORMAL) BMP w/fasting Glucose (02/05/2017 3:43 AM EDT) Glucose Fasting 149(H) 65 - 99 mg/dL [facility] Comment: ?Fasting* Glucose Interpretive [...] of Diabetes Mellitus, Position Statement from the [place] [employer]. ??Diabetes Care, Volume 33, Supplement 1, May 2009 Blood Urea Nitrogen 19 10 - 20 mg/dL [facility] Creatinine 1.46 0.80 - 1.50 mg/dL [facility] Comment: Please note that the pediatric reference intervals supplied above were not validated at [facility]. Results from pediatric patients should be interpreted in conjunction to the patient's age, height and muscle mass. Sodium 140 135 - 145 mmol/L [facility] Potassium 4.3 3.5 - 5.0 mmol/L [facility] Comment: Please note: ??Patients with WBC >100,000 may have falsely elevated Potassium levels. ??For accurate Potassium quantification in these patients send serum separator tube (gold top) for subsequent determinations. ??Contact the Clinical Chemistry Laboratory if there are any questions. Chloride 104 98 - 107 mmol/L [facility] Carbon Dioxide 24 22 - 31 mmol/L [facility] Anion Gap 12 5 - 15 mmol/L [facility] Calcium 8.8 8.5 - 10.5 mg/dL [facility] Est Glomerular Filtration Rate 46(L) >=60 [facility] Comment: This estimated GFR (eGFR) [...] the following links into your internet browser. [email or web address] [email or web address] Blood specimen (specimen) 02/05/2017 3:43 AM EDT 02/05/2017 3:52 AM EDT Narrative Resulting Agency Comment Spec In Lab Shoshana Moyer APRN CHEMISTRY ORDERABLES Performing Organization Address [place]/[facility] Co de Phone Number [facility] [place] [address] * Magnesium (02/05/2017 3:43 AM EDT) Magnesium 0.77 0.69 - 1.07 mmol/L [facility] Blood specimen (specimen) 02/05/2017 3:43 AM EDT 02/05/2017 3:52 AM EDT Narrative Resulting Agency Comment Spec In Lab Shoshana Moyer APRN CHEMISTRY ORDERABLES Performing Organization Address [place]/[facility] Co de Phone Number [facility] [place] [address] * POCT Glucose (02/04/2017 8:10 PM EDT) Glucose, POC 189 65 - 199 mg/dL [facility] Comment: Supplemental ranges: <140 mg/dL before meals <180 mg/dL all other times of the day Blood specimen (specimen) 02/04/2017 8:10 PM EDT 02/04/2017 8:10 PM EDT Bayron Oliva MD POINT OF CARE TEST O BHASKAR [facility] [place] [address] * POCT Glucose (02/04/2017 4:56 PM EDT) Glucose, POC 114 65 - 199 mg/dL [facility] Comment: Supplemental ranges: <140 mg/dL before meals <180 mg/dL all other times of the day Blood specimen (specimen) 02/04/2017 4:56 PM EDT 02/04/2017 4:56 PM EDT Bayron Oliva MD POINT OF CARE TEST O BHASKAR Performing Organization Address City/[facility]/ZIP Co de Phone Number [facility] [place] [address] * POCT Glucose (02/04/2017 11:40 AM EDT) Glucose, POC 157 65 - 199 mg/dL [facility] Comment: Supplemental ranges: <140 mg/dL before meals <180 mg/dL all other times of the day Blood specimen (specimen) 02/04/2017 11:40 AM EDT 02/04/2017 11:40 AM EDT Bayron Oliva MD POINT OF CARE TEST O BHASKAR [facility] [place] [address] * POCT Glucose (02/04/2017 7:53 AM EDT) Glucose, POC 178 65 - 199 mg/dL [facility] Comment: Supplemental ranges: <140 mg/dL before meals <180 mg/dL all other times of the day Blood specimen (specimen) 02/04/2017 7:53 AM EDT 02/04/2017 7:53 AM EDT Bayron Oliva MD POINT OF CARE TEST O RDERABLES Performing Organization Address [place]/[facility]/ZIP Co de Phone Number [facility] [place] [address] * EKG 12 Lead (02/04/2017 7:17 AM EDT) Ventricular rate 65 BPM MUSE SYSTEM Atrial Rate 65 BPM MUSE SYSTEM P-R Interval 248 ms MUSE SYSTEM QRS Duration 92 ms MUSE SYSTEM Q-T Interval 484 ms MUSE SYSTEM QTC Calculated (Bezet) 503 ms MUSE SYSTEM Calculated P [place] 29 degrees MUSE SYSTEM Calculated R [place] 99 degrees MUSE SYSTEM Calculated T [place] 140 degrees MUSE SYSTEM INTERPRETATION Sinus rhythm [...] interpretation Confirmed by fellow MD Katherine, Truong ([id number]) on 02/04/2017 9:02:44 AM Confirmed by MD RAUL, JOAN ([id number]) on 02/04/2017 10:47:37 AM MUSE SYSTEM 02/04/2017 7:17 AM EDT 02/04/2017 10:47 AM EDT Shoshana Moyer APRN ECG ORDERABLES Performing Organization Address City/[facility]/ZIP Co de Phone Number MUSE SYSTEM * (ABNORMAL) Cardiac Enzymes (02/04/2017 3:33 AM EDT) Troponin-T 0.95(H) 0.00 - 0.00 ng/mL [facility] Comment: The 99th percentile [...] ischemia ?? New or presumed new significant XE-hmuypgu-J wave (ST-T) changes or new left bundle [...] additional sample may be indicated. Reference: [place] Definition of Myocardial Infarction. Journal of the [place] College [employer]iology 2012;60:1581-98 Creatine Kinase 421(H) 0 - 200 unit/L [facility] Blood specimen (specimen) Venous Draw / Unknown 02/04/2017 3:33 AM EDT 02/04/2017 3:50 AM EDT Narrative Resulting Agency Comment Spec In Lab Shoshana Moyer APRN CHEMISTRY ORDERABLES [facility] [place] [address] * (ABNORMAL) Differential, Automated (02/04/2017 3:33 AM EDT) Neutrophil % 70.9 % [facility] Neutrophil Absolute 10.32(H) 1.70 - 6.10 x10(3)/mc L [facility] Lymph % 17.5 % [facility] Lymphocytes Abs 2.6 0.9 - 3.2 x10(3)/mc L [facility] Monocyte % 8.8 % [facility] Monocyte Abs 1.3(H) 0.3 - 0.9 x10(3)/mc L [facility] Eos % 2.0 % [facility] Eosinophils Abs 0.3 0.0 - 0.4 x10(3)/[facility] Basophil % 0.4 % [facility] Baso Absolute 0.1 0.0 - 0.1 x10(3)/[facility] Immature Gran % 0.40 % [facility] Comment: Immature granulocytes(IG's)percentage and absolute count will include metamyelocytes, myelocytes, and promyelocytes. Blood smears from CBCs yielding IG's will be scanned manually for concordance. If this scan disagrees with the automated IG or if promyelocytes are noted, a manual differential will be performed. Immature Gran Absolute 0.06(H) 0.00 - 0.04 x10(3)/[facility] Blood specimen (specimen) 02/04/2017 3:33 AM EDT 02/04/2017 3:50 AM EDT Narrative Resulting Agency Comment Spec In Lab Shoshana Moyer APRN HEMATOLOGY ORDERABLE S [facility] [place] [place] [address] * (ABNORMAL) Hemogram (02/04/2017 3:33 AM EDT) White Blood Cell 14.6(H) 4.0 - 9.5 x10(3)/[facility] Red Blood Cell 4.65 4.58 - 5.54 x10(6)/[facility] Hemoglobin 14.6 13.7 - 16.5 gm/dL [facility] Hematocrit 41.8 40.5 - 48.5 % [facility] Mean Cell Volume 89.9 82.9 - 93.1 fL [facility] Mean Cell Hemoglobin 31.4 27.5 - 32.1 pg [facility] Mean Cell Hemoglobin Concentration 34.9 32.0 - 35.7 gm/dL [facility] Platelet 192 145 - 357 x10(3)/mc L [facility] RDW Standard Deviation 38.6 36.0 - 45.0 fL [facility] RDW coefficient of variation 11.8 11.4 - 13.8 % [facility] Mean Platelet Volume 10.1 7.6 - 12.9 fL [facility] NRBC% auto 0.0 % [facility] NRBC Absolute 0.000 0.000 - 0.000 x10(3)/mc L [facility] Blood specimen (specimen) 02/04/2017 3:33 AM EDT 02/04/2017 3:50 AM EDT Narrative Resulting Agency Comment Spec In Lab Shoshana Moyer APRN HEMATOLOGY ORDERABLE S [facility] [place] [address] * (ABNORMAL) BMP w/fasting Glucose (02/04/2017 3:33 AM EDT) Glucose Fasting 138(H) 65 - 99 mg/dL [facility] Comment: ?Fasting* Glucose Interpretive [...] of Diabetes Mellitus, Position Statement from the [place] Diabetes [employer]. ??Diabetes Care, Volume 33, Supplement 1, May 2009 Blood Urea Nitrogen 15 10 - 20 mg/dL [facility] Creatinine 1.34 0.80 - 1.50 mg/dL [facility] Comment: Please note that the pediatric reference intervals supplied above were not validated at [facility]. Results from pediatric patients should be interpreted in conjunction to the patient's age, height and muscle mass. Sodium 139 135 - 145 mmol/L [facility] Potassium 4.2 3.5 - 5.0 mmol/L [facility] Comment: Please note: ??Patients with WBC >100,000 may have falsely elevated Potassium levels. ??For accurate Potassium quantification in these patients send serum separator tube (gold top) for subsequent determinations. ??Contact the Clinical Chemistry Laboratory if there are any questions. Chloride 102 98 - 107 mmol/L [facility] Carbon Dioxide 23 22 - 31 mmol/L [facility] Anion Gap 14 5 - 15 mmol/L [facility] Calcium 8.7 8.5 - 10.5 mg/dL [facility] Est Glomerular Filtration Rate 51(L) >=60 [facility] Comment: This estimated GFR (eGFR) [...] the following links into your internet browser. [email or web address] [email or web address]://[email or web address] Blood specimen (specimen) 02/04/2017 3:33 AM EDT 02/04/2017 3:50 AM EDT Narrative Resulting Agency Comment Spec In Lab Shoshana Moyer APRN CHEMISTRY ORDERABLES [facility] [place] [place] [address] * Magnesium (02/04/2017 3:33 AM EDT) Magnesium 0.77 0.69 - 1.07 mmol/L [facility] Blood specimen (specimen) 02/04/2017 3:33 AM EDT 02/04/2017 3:50 AM EDT Narrative Resulting Agency Comment Spec In Lab Shoshana Moyer PEOPLESOFT HRMS DEVELOPER CHEMISTRY ORDERABLES [facility] [place] [address] * (ABNORMAL) Hepatic Function Panel (02/04/2017 3:33 AM EDT) Protein, Total 6.1 6.1 - 8.0 gm/dL [facility] Albumin 3.7 3.2 - 5.2 gm/dL [facility] Aspartate Aminotransferase 57(H) 0 - 39 unit/L [facility] Alanine Aminotransferase 34 0 - 55 unit/L [facility] Alkaline Phosphatase 71 40 - 120 unit/L [facility] Bilirubin, Total 0.7 0.2 - 1.3 mg/dL [facility] Bilirubin, Direct 0.1 0.0 - 0.3 mg/dL [facility] Blood specimen (specimen) 02/04/2017 3:33 AM EDT 02/04/2017 3:50 AM EDT Narrative Resulting Agency Comment Spec In Lab Shoshana Moyer PEOPLESOFT HRMS DEVELOPER CHEMISTRY ORDERABLES Performing Organization Address City/[facility]/ZIP Co de Phone Number [facility] [place] [address] * Triglyceride (02/04/2017 3:33 AM EDT) Triglyceride 171 <=199 mg/dL [facility] Blood specimen (specimen) 02/04/2017 3:33 AM EDT 02/04/2017 3:50 AM EDT Narrative Resulting Agency Comment Spec In Lab Shoshana Moyer PEOPLESOFT HRMS DEVELOPER CHEMISTRY ORDERABLES [facility] [place] [address] * (ABNORMAL) HDL/Cholesterol Profile (02/04/2017 3:33 AM EDT) Cholesterol, Total 106 <=239 mg/dL [facility] HDL Cholesterol 37(L) >=40 mg/dL [facility] Cholesterol/HDL Ratio 2.9 ratio [facility] Chol/HDL Interpretation See Note [facility] Comment: Lipid management should be guided by a patient? s ASCVD risk, goals and preferences. ACC/AHA Guidelines recommend high intensity statin if clinical ASCVD or LDL greater than or equal to 190 mg/dL. [email or web address] Measure LDL if Total Cholesterol minus HDL Cholesterol is greater than 220 mg/dL. Adults aged 40-75 with LDL 70-189 mg/dL should have their 10 year ASCVD risk estimated with the ACC/AHA ASCVD risk estimator and drafter supervisor http://tools.acc.org/QBLDY-Qvpe-Olbnkelpi/ Statin should be discussed if risk greater [...] Moyer APRN CHEMISTRY ORDERABLES Performing Organization Address City/State/[facility] Co de Phone Number [facility] [place] [address] * LDL Cholesterol, Direct (02/04/2017 3:33 AM EDT) LDL Cholesterol, Direct 47 <=190 mg/dL [facility] Blood specimen (specimen) 02/04/2017 3:33 AM EDT 02/04/2017 3:50 AM EDT Narrative Resulting Agency Comment Spec In Lab Shoshana Moyer PEOPLESOFT HRMS DEVELOPER CHEMISTRY ORDERABLES [facility] [place] [address] * (ABNORMAL) Hemoglobin A1c (02/04/2017 3:33 AM EDT) Hemoglobin A1c 6.2(H) 4.3 - 5.6 % [facility] Comment: Reference Range: 4.3 [...] Mellitus, Diabetes Care 2013; 36: Suppl. 1, W47- Estimated Average Glucose See note mg/dL [facility] Comment: Estimated Average Glucose [...] into estimated average glucose values. ??Diabetes Care 2008:31(8):0328-9857. Blood specimen (specimen) 02/04/2017 3:33 AM EDT 02/04/2017 3:50 AM EDT Narrative Resulting Agency Comment Spec In Lab Shoshana Moyer RADHA CHEMISTRY ORDERABLES Performing Organization Address [place]/[facility] Co de Phone Number [facility] [place] [address] * EKG 12 Lead (02/03/2017 9:16 PM EDT) Ventricular rate 77 BPM MUSE SYSTEM Atrial Rate 77 BPM MUSE SYSTEM P-R Interval 222 ms MUSE SYSTEM QRS Duration 90 ms MUSE SYSTEM Q-T Interval 458 ms MUSE SYSTEM QTC Calculated (Bezet) 518 ms MUSE SYSTEM Calculated P [place] 29 degrees MUSE SYSTEM Calculated R [place] 98 degrees MUSE SYSTEM Calculated T [place] 118 degrees MUSE SYSTEM INTERPRETATION Sinus rhythm [...] Oliva MD ECG ORDERABLES Performing Organization Address [place]/[facility] Co de Phone Number MUSE SYSTEM * (ABNORMAL) Cardiac Enzymes (02/03/2017 9:00 PM EDT) Troponin-T 0.71(H) 0.00 - 0.00 ng/mL [facility] Comment: The 99th percentile [...] ischemia ?? New or presumed new significant CE-tabouma-P wave (ST-T) changes or new left bundle [...] additional sample may be indicated. Reference: [place] Definition of Myocardial Infarction. Journal of the [place] College [employer]iology 2012;60:1581-98 Creatine Kinase 329(H) 0 - 200 unit/L [facility] Blood specimen (specimen) 02/03/2017 9:00 PM EDT 02/03/2017 9:05 PM EDT Narrative Resulting Agency Comment Spec In Lab Shoshana Moyer APRN CHEMISTRY ORDERABLES Performing Organization Address [place]/[facility]/ZIP Co de Phone Number [facility] [place] [address] * POCT Glucose (02/03/2017 8:29 PM EDT) [facility] Glucose, POC 197 65 - 199 mg/dL [facility] Comment: Supplemental ranges: <140 mg/dL before meals <180 mg/dL all other times of the day Blood specimen (specimen) 02/03/2017 8:29 PM EDT 02/03/2017 8:29 PM EDT Bayron Oliva MD POINT OF CARE TEST O RDERABLES Performing Organization Address City/[facility]/ZIP Co de Phone Number [facility] [place] [address] * POCT Glucose (02/03/2017 4:54 PM EDT) Glucose, POC 144 65 - 199 mg/dL [facility] Comment: Supplemental ranges: <140 mg/dL before meals <180 mg/dL all other times of the day Blood specimen (specimen) 02/03/2017 4:54 PM EDT 02/03/2017 4:54 PM EDT Bayron Oliva MD POINT OF CARE TEST O RDERABLES Performing Organization Address [place]/[facility] Co de Phone Number [facility] [place] [address] * EKG 12 Lead (02/03/2017 4:43 PM EDT) Ventricular rate 81 BPM MUSE SYSTEM Atrial Rate 81 BPM MUSE SYSTEM P-R Interval 226 ms MUSE SYSTEM QRS Duration 96 ms MUSE SYSTEM Q-T Interval 420 ms MUSE SYSTEM QTC Calculated (Bezet) 487 ms MUSE SYSTEM Calculated P [place] 30 degrees MUSE SYSTEM Calculated R [place] -20 degrees MUSE SYSTEM Calculated T [place] -19 degrees MUSE SYSTEM INTERPRETATION Sinus rhythm [...] Oliva MD ECG ORDERABLES Performing Organization Address [place]/[facility] de Phone Number MUSE SYSTEM * CARDIAC CATHETERIZATION (02/03/2017 4:26 PM EDT) Anatomical Region Laterality Modality Other Narrative 02/03/2017 4:43 PM EDT ?[facility] ? Cardiac Catheterization/Intervention Report ? Patient Name: Cesar Thompson. ? Procedure Date: 02/03/2017 ? A #: [id number] ? Primary Physician: Ahmed, Lydia ? Case #: [id number] ? File Name: [id number] ? Catheterization Order Number: [id number] ? [facility] ? Final Report [place], [place] ? Patient Name: ? Gilbert D. Thompson ?ID#: ?[id number] ? : ?1935 ? Procedure Date: ? February 03, 2017 ?Case #: ? [id number] ? Room: ? 6 ? Case Physician: [...] patient presented with: non-STEMI (w/i 7 days). [place] ?Cardiovascular Society angina class was IV. This [...] A premounted 3.50 x 23 mm Leeroy Pritchardine (MINNIE) was deployed ? 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 ?Recommend continuing clopidogrel 75 mg PO [...] Lydia Harden M.D. ? Electronically Signed by: Bobbi BenedictD. ? Report Finalized: 02/03/2017 ??16:31 ? Report Last Ammended: 08/08/2017 ??10:23 ? Procedure Note Lydia Harden MD - 08/08/2017 [facility] Cardiac Catheterization/Intervention Report Patient Name: Cesar Thompson Procedure Date: 02/03/2017 A #: [id number] Primary Physician: Lydia Harden Case #: [id number] File Name: [id number] Catheterization Order Number: [id number] [facility] FinalReport [place], [place] Patient Name: Cesar Thompson ID#:[id number] :1935 Procedure Date: February 03, 2017 Case [...] patient presented with: non-STEMI (w/i 7 days). [place] Cardiovascular Society angina class was IV. 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 Recommend continuing clopidogrel 75 mg PO [...] (ABNORMAL) Cardiac Enzymes (02/03/2017 3:00 PM EDT) [facility] Troponin-T 0.48(H) 0.00 - 0.00 ng/mL [facility] Comment: The 99th percentile [...] ischemia ?? New or presumed new significant ML-maoptvy-H wave (ST-T) changes or new left bundle [...] additional sample may be indicated. Reference: [place] Definition of Myocardial Infarction. Journal of the [place] College of Cardiology 2012;60:1581-98 Creatine Kinase 305(H) 0 - 200 unit/L [facility] Blood specimen (specimen) 02/03/2017 3:00 PM EDT 02/03/2017 3:22 PM EDT Narrative Resulting Agency Comment Spec In Lab Shoshana Moyer APRN CHEMISTRY ORDERABLES Performing Organization Address City/[facility]/ZIP Co de Phone Number [facility] [place] [address] * TSH (02/03/2017 3:00 PM EDT) Thyroid Stimulating Hormone 1.18 0.27 - 4.20 mlU/ML [facility] Blood specimen (specimen) 02/03/2017 3:00 PM EDT 02/03/2017 3:22 PM EDT Narrative Resulting Agency Comment Spec In Lab Inder Medley MD CHEMISTRY ORDERABLES Performing Organization Address City/[facility]/ZIP Co de Phone Number [facility] [place] [address] * XR Chest PA & Lateral (Generic) [...] ?EDD Hatch ?(Age): 1935(81y) Med Rec#: ? [id number] ?Sex: ?M ? Site Loc: ? [facility] ?Ht / Wt: ??175(cm)/85(kg) Pt. Loc: ?Adult Floor ? BSA: ?2.01 Study Date: ?? 02/03/2017 ?Pt. Type: Inpatient Tape: ? Referring: FIDELROBERTDoc Referring: Inder Medley Reading: Mason Beth ([id number]) Shake Backboard Notcher: Sonia Marcial Diagnosis: *ICD-10-PCS Non-ST elevation (NSTEMI) [...] ? Mid-Inferior ?Hypokinetic ? Mid-Inferoseptal ?Akinetic ? [place]-Septal ? Akinetic ? [place]-Anterior ? Akinetic ? [place]-Lateral ?Akinetic ? [place]-Inferior ? Akinetic ? [place]-Tip ?Akinetic ? This report has been electronically signed by: Mason Beth MD ? 02/03/2017 13:42:39 Images reviewed and interpretation verified [facility] Cardiac Ultrasound Laboratory Procedure Note Mason Beth MD - 02/03/2017 Procedure: Transthoracic Echocardiogram Patient: EDD Hatch (Age): 1935(81y) Med Rec#: [id number] Sex: M Site Loc: [facility] Ht / Wt: 175(cm)/85(kg) Pt. Loc: Adult Floor BSA: 2.01 Study Date: 02/03/2017 Pt. Type: Inpatient Tape: Referring: GRANTROBERTDoc Referring: Inder Medley Reading: Mason Beth ([id number]) Shake Backboard Notcher: Sonia Marcial Diagnosis: *ICD-10-PCS Non-ST elevation (NSTEMI) [...] Hypokinetic Mid-Posterolateral Hypokinetic Mid-Inferior Hypokinetic Mid-Inferoseptal Akinetic [place]-Septal Akinetic [place]-Anterior Akinetic [place]-Lateral Akinetic [place]-Inferior Akinetic [place]-Tip Akinetic This report has been electronically signed by: Mason Beth MD 02/03/2017 13:42:39 Images reviewed and interpretation verified [facility] Cardiac Ultrasound Laboratory Inder Medley MD ECHO ORDERABLES * POCT Glucose (02/03/2017 11:50 AM EDT) Glucose, POC 138 65 - 199 mg/dL [facility] Comment: Supplemental ranges: <140 mg/dL before meals <180 mg/dL all other times of the day Blood specimen (specimen) 02/03/2017 11:50 AM EDT 02/03/2017 11:50 AM EDT Bayron Oliva MD POINT OF CARE TEST O RDERABLES [facility] [place] [address] * (ABNORMAL) APTT (02/03/2017 11:50 AM EDT) Partial Thromboplastin Time 54(H) 25 - 35 sec [facility] Comment: The recommended therapeutic range for full dose, unfractionated heparin at [facility] is 80 ? 114 seconds. The use of the anti-Xa (heparin) level rather than the PTT is recommended for monitoring anticoagulation intensity in critically ill patients receiving unfractionated heparin by continuous IV infusion. Blood specimen (specimen) 02/03/2017 11:50 AM EDT 02/03/2017 12:05 PM EDT Narrative Resulting Agency Comment Spec In Lab Shoshana Moyer RADHA HEMATOLOGY ORDERABLE S Performing Organization Address City/[facility]/ZIP Co de Phone Number [facility] [place] [address] * POCT Glucose (02/03/2017 10:13 AM EDT) [facility] Glucose, POC 148 65 - 199 mg/dL [facility] Comment: Supplemental ranges: <140 mg/dL before meals <180 mg/dL all other times of the day Blood specimen (specimen) 02/03/2017 10:13 AM EDT 02/03/2017 10:13 AM EDT Inder Medley MD POINT OF CARE TEST O RDERABLES Performing Organization Address City/[facility]/ZIP Co de Phone Number [facility] [place] [address] * (ABNORMAL) Differential, Automated (02/03/2017 9:35 AM EDT) [facility] Neutrophil % 68.5 % [facility] Neutrophil Absolute 6.52(H) 1.70 - 6.10 x10(3)/mc L [facility] Lymph % 20.1 % [facility] Lymphocytes Abs 1.9 0.9 - 3.2 x10(3)/mc L [facility] Monocyte % 7.5 % [facility] Monocyte Abs 0.7 0.3 - 0.9 x10(3)/mc L [facility] Eos % 2.9 % [facility] Eosinophils Abs 0.3 0.0 - 0.4 x10(3)/mc L [facility] Basophil % 0.7 % [facility] Baso Absolute 0.1 0.0 - 0.1 x10(3)/mc L [facility] Immature Gran % 0.30 % [facility] Comment: Immature granulocytes(IG's)percentage and absolute count will include metamyelocytes, myelocytes, and promyelocytes. Blood smears from CBCs yielding IG's will be scanned manually for concordance. If this scan disagrees with the automated IG or if promyelocytes are noted, a manual differential will be performed. Immature Gran Absolute 0.03 0.00 - 0.04 x10(3)/[facility] Blood specimen (specimen) 02/03/2017 9:35 AM EDT 02/03/2017 9:40 AM EDT Narrative Resulting Agency Comment Spec In Lab Shoshana Moyer APRN HEMATOLOGY ORDERABLE S Performing Organization Address City/State/[facility] Co de Phone Number [facility] [place] [address] * Hemogram (02/03/2017 9:35 AM EDT) White Blood Cell 9.5 4.0 - 9.5 x10(3)/[facility] Red Blood Cell 4.99 4.58 - 5.54 x10(6)/[facility] Hemoglobin 15.3 13.7 - 16.5 gm/dL [facility] Hematocrit 44.5 40.5 - 48.5 % [facility] Mean Cell Volume 89.2 82.9 - 93.1 fL [facility] Mean Cell Hemoglobin 30.7 27.5 - 32.1 pg [facility] Mean Cell Hemoglobin Concentration 34.4 32.0 - 35.7 gm/dL [facility] Platelet 204 145 - 357 x10(3)/[facility] RDW Standard Deviation 37.7 36.0 - 45.0 [facility] RDW coefficient of variation 11.8 11.4 - 13.8 % [facility] Mean Platelet Volume 10.3 7.6 - 12.9 [facility] NRBC% auto 0.0 % [facility] NRBC Absolute 0.000 0.000 - 0.000 x10(3)/mcL [facility] Blood specimen (specimen) 02/03/2017 9:35 AM EDT 02/03/2017 9:40 AM EDT Narrative Resulting Agency Comment Spec In Lab Shoshana Moyer RADHA HEMATOLOGY ORDERABLE S [facility] [place] [address] * (ABNORMAL) Cardiac Enzymes (02/03/2017 9:35 AM EDT) Troponin-T 0.31(H) 0.00 - 0.00 ng/mL [facility] Comment: The 99th percentile [...] ischemia ?? New or presumed new significant JB-fnjdqtp-Z wave (ST-T) changes or new left bundle [...] additional sample may be indicated. Reference: [place] Definition of Myocardial Infarction. Journal of the [place] College [employer]iology 2012;60:1581-98 Creatine Kinase 264(H) 0 - 200 unit/L [facility] Blood specimen (specimen) 02/03/2017 9:35 AM EDT 02/03/2017 9:40 AM EDT Narrative Resulting Agency Comment Spec In Lab Shoshana Moyer RADHA CHEMISTRY ORDERABLES Performing Organization Address [place]/[facility]/ZIP Co de Phone Number [facility] [place] [address] * (ABNORMAL) pro-Brain Natriuretic Peptide (02/03/2017 9:35 AM EDT) NT-proBNP 1,411(H) <=450 pg/mL [facility] Blood specimen (specimen) 02/03/2017 9:35 AM EDT 02/03/2017 9:40 AM EDT Narrative Resulting Agency Comment Spec In Lab Shoshana Moyer RADHA CHEMISTRY ORDERABLES Performing Organization Address [place]/[facility] Co de Phone Number [facility] [place] [address] * (ABNORMAL) APTT (02/03/2017 9:35 AM EDT) Partial Thromboplastin Time 64(H) 25 - 35 sec [facility] Comment: The recommended therapeutic range for full dose, unfractionated heparin at [facility] is 80 ? 114 seconds. The use of the anti-Xa (heparin) level rather than the PTT is recommended for monitoring anticoagulation intensity in critically ill patients receiving unfractionated heparin by continuous IV infusion. Blood specimen (specimen) 02/03/2017 9:35 AM EDT 02/03/2017 9:40 AM EDT Narrative Resulting Agency Comment Spec In Lab Shoshana Moyer RADHA HEMATOLOGY ORDERABLE S Performing Organization Address [place]/[facility] Co de Phone Number [facility] [place] [address] * Prothrombin Time (02/03/2017 9:35 AM EDT) Prothrombin Time 14.1 12.0 - 15.0 sec [facility] Comment: An INR <2.0 [...] International Normalization Ratio 1.0 0.9 - 1.1 [facility] Blood specimen (specimen) 02/03/2017 9:35 AM EDT 02/03/2017 9:40 AM EDT Narrative Resulting Agency Comment Spec In Lab Shoshana Roach King RADHA HEMATOLOGY ORDERABLE S [facility] [place] [address] * (ABNORMAL) Basic Metabolic Panel (non-fasting) (02/03/2017 9:35 AM EDT) Glucose 159 65 - 199 mg/dL [facility] Comment:Diabetes: >=200 mg/d L plus symptoms Blood Urea Nitrogen 15 10 - 20 mg/dL [facility] Creatinine 1.19 0.80 - 1.50 mg/dL [facility] Comment: Please note that the pediatric reference intervals supplied above were not validated at [facility]. Results from pediatric patients should be interpreted in conjunction to the patient's age, height and muscle mass. Sodium 140 135 - 145 mmol/L [facility] Potassium 4.0 3.5 - 5.0 mmol/L [facility] Comment: Please note: ??Patients with WBC >100,000 may have falsely elevated Potassium levels. ??For accurate Potassium quantification in these patients send serum separator tube (gold top) for subsequent determinations. ??Contact the Clinical Chemistry Laboratory if there are any questions. Chloride 103 98 - 107 mmol/L [facility] Carbon Dioxide 22 22 - 31 mmol/L [facility] Anion Gap 15 5 - 15 mmol/L [facility] Calcium 9.3 8.5 - 10.5 mg/dL [facility] Est Glomerular Filtration Rate 59(L) >=60 [facility] Comment: This estimated GFR (eGFR) [...] the following links into your internet browser. [email or web address] [email or web address] Blood specimen (specimen) 02/03/2017 9:35 AM EDT 02/03/2017 9:40 AM EDT Narrative Resulting Agency Comment Spec In Lab Shoshana Moyer APRN CHEMISTRY ORDERABLES Performing Organization Address [place]/[facility] Co de Phone Number [facility] [place] [address] * EKG 12 Lead (02/03/2017 9:23 AM EDT) Ventricular rate 71 BPM MUSE SYSTEM Atrial Rate 71 BPM MUSE SYSTEM P-R Interval 236 ms MUSE SYSTEM QRS Duration 96 ms MUSE SYSTEM Q-T Interval 448 ms MUSE SYSTEM QTC Calculated (Bezet) 486 ms MUSE SYSTEM Calculated P [place] -5 degrees MUSE SYSTEM Calculated R [place] -17 degrees MUSE SYSTEM Calculated T [place] 79 degrees MUSE SYSTEM INTERPRETATION Sinus rhythm with 1st degree A-V block Inferior infarct , age undetermined T wave abnormality, consider anterolateral ischemia Abnormal ECG When compared with ECG of 12-APR-2011 07:31, T wave inversion now evident in Anterolateral leads Confirmed by MD Zimmerman Gregory A. ([id number]) on 02/04/2017 9:15:41 AM MUSE SYSTEM 02/03/2017 9:23 AM EDT 02/04/2017 9:15 AM EDT Shoshana Moyer APRN ECG ORDERABLES Performing Organization Address [place]/[facility] Co de Phone Number MUSE SYSTEM [...] 0842, Until Fri02/03/17 at 0850, SYDNIE CLARK: cabinet override heparin (porcine) injection 0-4,000 Units 0-4,000 [...] Fri02/03/17 at 2159, Recovery (Recovery-Hospital Unit) New Bag 02/03/2017 4:57 PM EDT 100 mL/hr 100 [...] Admin Adt) 1718 (Given - Provider: Angie Escobar, MARILYN) clopidogrel (PLAVIX) tablet 75 mg 75 mg, [...] - Reason: Transfer to a Procedural area)1519 (MAR Unhold - Provider: Admin Adt) meTOPROLOL succinate (TOPROL-XL) XL tablet 100 mg 100 mg, Oral, DAILY, First dose on Fri02/05/17 at 1000, Until Discontinued, DO NOT CRUSH OR OPEN, Routine 1000 (Given - Provider: Angie Escoabr RN) meTOPROLOL tartrate (LOPRESSOR) tablet 25 mg [...] Escobar, MARILYN) 0808 (Given - Provider: Angie Escobar RN) [...] UA) 0850 (New Bag - Provider: Sydnie Clark, MARILYN)1251 (Rate/Dose Change - Provider: Sydnie Clark RN)1500 [...] - Reason: Transfer to a Procedural area)1836 ([facility] Unhold - Provider: Admin Adt) heparin (porcine) [...] 1252 (Given - Provider: Sydnie Clark RN)1514 ([facility] Hold - Provider: Admin Adt - Reason: Transfer to a Procedural area)1623 ([facility] Unhold - Provider: Admin Adt) heparin (porcine) [...] 2113, Until Fri02/05/17 at 1344, Pain, Routine 2 (Given - Provider: Lexi Mancuso RN) niCARdipine (CARDENE) in sodium chloride 0.9% injection (CANCELED) ONCE PRN, Starting on Fri02/03/17 at 1602, Until Fri02/03/17 at 1836, Intra-Operative (Intra-Procedure), Routine 1602 (Given - Provider: Madhu Forman MD)161 (Given - Provider: Madhu Forman MD) nitroGLYcerin [...] to 72 hours., Recovery (Recovery-Hospital Unit), Routine 164 (Given - Provider: Essie Montana RN) nitroGLYcerin [...] Routine documented in this encounter Care Teams Java Portal Developer Relationship Specialty Start Date End Date Arely Moise MD PCP - General Family Medicine 09/16/16 documented as of this encounter
--- OUTSIDE RECORDS SUMMARY | 2024-01-25 13:42 | XMS_ITS | Encounter Summary ---
Author Organization [facility] Address [facility] [place] [address] Care Team Providers Care Pharm Spec Name Role Phone Rolando Moise MD Primary Care Provider [phone] Reason for Referral * Diagnostic Test (Routine) - Closed Specialty Diagnoses / Procedures Referred By Teodoro robertson Referred To Contact Cardiology Diagnoses Cardiomyopathy, ischemic Procedures Echocardiogram Transthoracic(Leb) Muriel Manning MD [facility] [place] [address] [facility] [place] [address] Referral ID Status Reason Start Date Expiration Date V isits Requested Visits Authorized [id number] Closed Specialty Service Requested 05/27/2017 05/27/2018 1 1 Encounter Details Date Type Department Care Team (Late st Contact Info) Description 05/27/2017 Orders Only Cardiology at [address] [address] Muriel Manning MD [facility] [place] [address] Cardiomyopathy, ischemic Social History Tobacco Use [...] 12:15 PM EDT Laboratory Appointment Lab [address] [place] [address] 02/02/2024 2:[address] [place] [address] Pascale Barboza, RADHA [facility] [place] [address] 02/02/2024 2:30 PM EDT Office Visit [place] [address] Erik Gill MD [facility] DR VASCULAR SURGERY [place] [id number] documented as of this encounter Results * ECHO COMPLETE (09/22/2017 2:33 PM EDT) EF 60 HEARTLAB SYSTEM Anatomical Region Laterality Modality Other 09/22/2017 Narrative 09/22/2017 2:40 PM EDT Procedure: ?Transthoracic Echocardiogram Patient: ?EDD LEIVA D ?(Age): 1935(81y) Med Rec#: ? [id number] ?Sex: ?M ? [place] [facility] [place]t / Wt: ??178(cm)/88(kg) Pt. Loc: ?Echo Lab ?BSA: ?2.06 Study Date: ?? 09/22/2017 ?Pt. Type: Outpatient Tape: ? Referring: MURIEL MANNING T Reading: Don Olivakera Dela Cruz ([id number]) Electric Blanket Packer: Taisha Davidson Diagnosis: *ICD-10-PCS Ischemic cardiomyopathy (I25.5) [...] E-wave Vmax ?0.7 ?m/sec ? MV deceleration [id number] ?msec ? MV A-wave Vmax ?1.3 ?m/sec [...] Mid-Inferior ?Normal ? Mid-Inferoseptal ?Normal ? [place]-Septal ? Normal ? [place]-Anterior ? Normal ? [place]-Lateral ?Normal ? [place]-Inferior ? Normal ? [place]-Tip ?Normal ? This report has been electronically signed by: Bayron Oliva M.D. ? 09/22/2017 14:40:07 Images reviewed and interpretation verified [facility] Cardiac Ultrasound Laboratory Procedure Note Bayron Oliva MD - 09/22/2017 Procedure: Transthoracic Echocardiogram Patient: EDD COUCH(Age): 1935(81y) Med Rec#: [id number] Sex: M [place] [facility] [place] Ht / Wt: 178(cm)/88(kg) Pt. Loc: Echo Lab BSA: 2.06 Study Date: 09/22/2017 Pt. Type: Outpatient Tape: Referring: MURIEL MANNING T Reading: Bayron Oliva ([id number]) Electric Blanket Packer: Taisha Davidson Diagnosis: *ICD-10-PCS Ischemic cardiomyopathy (I25.5) [...] MV E-wave Vmax 0.7 m/sec MV deceleration [id number] msec MV A-wave Vmax 1.3 m/sec MV [...] Mid-Posterolateral Normal Mid-Inferior Normal Mid-Inferoseptal Normal [place]-Septal Normal [place]-Anterior Normal [place]-Lateral Normal [place]-Inferior Normal [place]-Tip Normal This report has been electronically signed by: Bayron Oliva M.D. 09/22/2017 14:40:07 Images reviewed and interpretation verified [facility] Cardiac Ultrasound Laboratory Muriel Manning MD ECHO ORDERABLES documented in this encounter Visit Diagnoses Diagnosis Cardiomyopathy, ischemic Other specified forms of chronic ischemic heart disease Cardiomyopathy, ischemic Other specified forms of chronic ischemic heart disease documented in this encounter Care Teams Pharm Spec Relationship Specialty Start Date End Date Rolando Moise MD PCP - General Family Medicine 09/16/16 documented as of this encounter
--- OUTSIDE RECORDS SUMMARY | 2024-01-25 13:42 | XMS_ITS | Encounter Summary ---
Author Organization [facility] Address [facility] [place] [address] Care Team Providers Care Fire Investigation Manager Name Role Phone Rolando Moise MD Primary Care Provider [phone] Reason for Visit * Auth/Cert Specialty Diagnoses / Procedures Referred By Teodoro t Referred To Contact Diagnoses Chest pain nstemi Referral ID Status Reason Start Date Expiration Date Visits Re quested Visits Authorized [id number] 1 1 Encounter Details Date Type Department Care Team (Latest Contact Info) Description 11/07/2020 6:46 AM EDT - 11/09/2020 3:30 PM EDT Hospital Encounter [place] [id number] Maximino Mcallister MD [facility] [place] [address] Chest pain, unspecified type; Abdominal aortic aneurysm [...] Cesar Thompson Patient Age: 84 y.o. Language: Dominican Race: White Ethnicity: Not nor Admit date: [...] please contact your inpatient physician through the [facility] Sales Representative . Issues afterhours and on weekends will [...] who have questions please contact the health urgent care physician that requested your imaging first. Electronically signed by: Tyrone Jones MD, [facility] ([phone]), at 11/07/2020 8:[address] Angiogram Chest Abdomen Pelvis w Contrast (Exam End: 11/07/2020 10:10 AM) Impression 1. 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 2. 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 No direct endoleak noted, however, increase in the greatest dimensions of the makah aneurysm sac of indeterminate etiology. The endograft is widely patent Thank you for letting us participate in the care of this patient. If you are a health care provider and have any questions regarding this report, please contact the number below. For patients who have questions please contact the health urgent care physician that requested your imaging first. Electronically signed by: Isac Smith MD, [facility] ([phone]), at 11/07/2020 11:03 AM NM Lung Perfusion [...] who have questions please contact the health urgent care physician that requested your imaging first. Electronically signed by: Migue Francisco MD, [facility] ([phone]), at 11/07/2020 4:42 PM Pending Studies and [...] gauge x 5/16 Syrg 1 Box by [facility] [place] [place].(Non-Drug; Combo Route) route as needed. 1 Box [...] be able to get care/medications through the PR system if you apply for it. - [...] appointments: During 8am-5pm Friday through Friday call [phone] to speak with a nurse in the cardiology clinic All other times call [phone] and ask to speak to the creative services director environmental sampler. What activities can you do, and what [...] the hospital? Maximino Mcallister MD - Attending Day Care Provider When do I see my doctors next? No future appointments. You will need to follow up with your PCP (Rolando Moise MD at [phone]) within 1 week of discharge - scheduled for FridayNovember 15 @3:40PM You will need to follow up with your Day Care Provider - FridayNovember 28 @1pm - You will go to the 3rd floor [facility] For questions regarding issues relating to your hospitalization on the Cardiology Service, please contact your inpatient physician through the [facility] Sales Representative ([phone] and ask for pager #[phone]. Issues after hours and on weekends will be handled by the Cardiology staff on-call. General Instructions None Provider Contact Information: MD [address] / [place] [phone] Discharge References/Attachments Diabetes: Blood Sugar Emergencies (Dominican) Diabetes: Home Blood Sugar Test (Dominican) Diabetes: Single-Dose Insulin Shot (Dominican) Beta-Blockers (Dominican) Rhythm-Control Medicines: General Info (Dominican) documented in this encounter Discharge Instructions * [...] be able to get care/medications through the PR system if you apply for it. - [...] appointments: During 8am-5pm Friday through Friday call [phone] to speak with a nurse in the cardiology clinic All other times call [phone] and ask to speak to the creative services director environmental sampler. What activities can you do, and what [...] the hospital? Maximino Mcallister MD - Attending Day Care Provider When do I see my doctors next? No future appointments. You will need to follow up with your PCP (Rolando Moise MD at [phone]) within 1 week of discharge - scheduled for FridayNovember 15 @3:40PM You will need to follow up with your Day Care Provider - FridayNovember 28 @1pm - You will go to the 3rd floor [facility] For questions regarding issues relating to your hospitalization on the Cardiology Service, please contact your inpatient physician through the [facility] Sales Representative [phone] and ask for pager #[phone]. Issues after hours and on weekends will be handled by the Cardiology staff on-call. * Attachments The following attachments cannot be sent through Care Everywhere. * Diabetes: Blood Sugar Emergencies (Dominican) * Diabetes: Home Blood Sugar Test (Dominican) * Diabetes: Single-Dose Insulin Shot (Dominican) * Beta-Blockers (Dominican) * Rhythm-Control Medicines: General Info (Dominican) documented in this encounter Medications at Time of Discharge Medication Sig Dispensed Refills Start Date End Date apixaban (Eliquis) 2.5 mg Tablet Take 1 tablet by mouth 2 times daily. 60 tablet 3 11/09/2020 Insulin Syringe-Needle U-100 0.3 mL 31 gauge x 5/16 Syringe 1 Box by [facility] [place], [place].(Non-Drug; Combo Route) route as needed. 90 Syringe [...] mouth daily. 60 tablet 3 11/09/2020 07/18/2022 insulin glargine (Lantus) Solution Inject 10 Units subcutaneously daily. 1 vial 12 11/10/2020 01/09/2024 insulin lispro (HumaLOG;Admelog) 100 unit/mL Solution Inject 4 Units subcutaneously 3 times daily (with meals). 1 vial 12 11/09/2020 01/09/2024 insulin lispro (humaLOG KwikPen) Insulin PenIndications:type 2 diabetes mellitus Inject 4 Units subcutaneously 3 times daily (with meals). Indications: type 2 diabetes mellitus 1500 vial 3 11/09/2020 01/09/2024 insulin aspart protamine-insulin aspart 70/30 (novoLOG Mix 70-30) Solution Inject 10 Units subcutaneously daily. 15 mL 3 11/09/2020 01/09/2024 documented as of this encounter Progress Notes [...] 1127 11/09/20 0744 11/09/20 0309 11/09/20 0044 11/08/20 2027 11/08/20 1706 POCGLU 198 183 174 152 225* 161 Imaging/Studies: CT Angiogram Chest Abdomen Pelvis contrast (11/07/2020): 1. 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 2. 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 No direct endoleak noted, however, increase in the greatest dimensions of the makah aneurysm sac of indeterminate etiology. The endograft [...] medication assistance. His partner, Montse, came to [facility] this morning to meet with the team and understand the plan. We upped his insulin dosage yesterday with better superintendent container terminal coverage and his glucose control has been [...] Cardiopulmonary Resuscitation - Inpatient Dispo: Discharge Sang Jean Cipriano, OMIII Cardiology S2 (Pager [phone]) Associated attestation - Maximino Mcallister MD - [...] PCP: Rolando Moise MD PCP phone number: [phone] Date of Admission: 11/07/2020 ( Hospital Day 2 days ) Attending:Maximino Mcallister MD ID: Cesar Thompson is a 84 y.o. male w/ PMH of CAD??c/b NSTEMI s/p MINNIE to mLAD and oDiag1 (02/2017), Ischemic myopathy (LV EF 35% after CA to 60% 09/2017),??AAA s/p??endovascular??repair??(04/2011) and DMII, on [...] to set up home insulin. This AM: [place] well, no recurrence of chest pain -- [...] Telemetry: Normal Sinus rhythm 50-70's (A fib 1420-8406) Intake/Output Summary (Last 24 hours) at 11/09/2020 [...] Gas) No results found for: PHART, PO2ART, AYR9VKO, ERO3VQA Microbiology: Microbiology Results (Last 30 days) No [...] who have questions please contact the health urgent care physician that requested your imaging first. Electronically signed by: Tyrone Jones MD, [facility] ([phone]), at 11/07/2020 8:[address] Angiogram Chest Abdomen Pelvis w Contrast (Exam End: 11/07/2020 10:10 AM) Impression 1. 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 2. 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 No direct endoleak noted, however, increase in the greatest dimensions of the makah aneurysm sac of indeterminate etiology. The endograft is widely patent Thank you for letting us participate in the care of this patient. If you are a health care provider and have any questions regarding this report, please contact the number below. For patients who have questions please contact the health urgent care physician that requested your imaging first. Electronically signed by: Isac Smith MD, [facility] ([phone]), at 11/07/2020 11:03 AM NM Lung Perfusion [...] who have questions please contact the health urgent care physician that requested your imaging first. Electronically signed by: Migue Francisco MD, [facility] ([phone]), at 11/07/2020 4:42 PM Medications Scheduled Meds: [...] oDiag1 (02/2017), ICM (LV EF 35% after CA to 60% 09/2017),??AAA s/p??endovascular??repair??(04/2011) on HD# 2 [...] as well. Will follow. * Sang Cota - 11/08/2020 5:50 AM EDT Images from the original note were not included. Inpatient Cardiology Progress Note Patient Name: Cesar Thompson Date of Admission: 11/07/2020 ( Hospital Day 1 day ) Service: S2 ID: Cesar Thompson is a 84 y.o. male with a history of CAD complicated by NSTEMI s/p Alfonso (to mLAD and oDiag1 02/2017), ischemic cardiomyopathy (LV EF 35% after CA to 60% 09/2017), AAA s/p endovascular repair [...] (11/07/20 1730) ??? AMIOdarone 0.5 mg/min (11/08/20 9132) Scheduled Meds: ??? sodium chloride 0.9 % [...] increase in the greatest dimensions of the makah aneurysm sac of indeterminate etiology. The endograft [...] 02/2017), ischemic cardiomyopathy (LV EF 35% after CA to 60% 09/2017), AAA s/p endovascular repair [...] ?? Sang Cota, GSOMIII Cardiology S2 (Pager [phone]) * Adam Fuchs MD - 11/08/2020 5:27 AM EDT Images from the original note were not included. Inpatient Cardiology Progress Note Patient info: Name: Cesar Thompson : 1935 PCP: Rolando Moise MD PCP phone number: [phone] Date of Admission: 11/07/2020 ( Hospital Day 1 day ) Attending:Maximino Mcallister MD ID: Cesar Thompson is a 84 y.o. male w/ PMH of CAD??c/b NSTEMI s/p MINNIE to mLAD and oDiag1 (02/2017), Ischemic myopathy (LV EF 35% after CA to 60% 09/2017),??AAA s/p??endovascular??repair??(04/2011 on Hospital Day1 for acute tearing chest pain to back. 24 Hour Events/Subjective: Yesterday: CT aorta ruled out dissection V/Q scan no perfusion defects Started on heparin drip + DAPT Converted to sinus from a fib on diltiazem drip Started on amiodarone to keep in sinus -- Overnight: -- This AM:[place] well, no recurrence of chest pain -- [...] Gas) No results found for: PHART, PO2ART, UPN1ILQ, SBK7NAF Microbiology: Microbiology Results (Last 30 days) No [...] who have questions please contact the health urgent care physician that requested your imaging first. Electronically signed by: Tyrone Jones MD, [facility] ([phone]), at 11/07/2020 8:[address] Angiogram Chest Abdomen Pelvis w Contrast (Exam End: 11/07/2020 10:10 AM) Impression 1. 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 2. 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 No direct endoleak noted, however, increase in the greatest dimensions of the makah aneurysm sac of indeterminate etiology. The endograft is widely patent Thank you for letting us participate in the care of this patient. If you are a health care provider and have any questions regarding this report, please contact the number below. For patients who have questions please contact the health urgent care physician that requested your imaging first. Electronically signed by: Isac Smith MD, [facility] ([phone]), at 11/07/2020 11:03 AM NM Lung Perfusion [...] who have questions please contact the health urgent care physician that requested your imaging first. Electronically signed by: Migue Francisco MD, [facility] ([phone]), at 11/07/2020 4:42 PM Medications Scheduled Meds: [...] oDiag1 (02/2017), ICM (LV EF 35% after CA to 60% 09/2017),??AAA s/p??endovascular??repair??(04/2011) on HD# 2 [...] PCP: Rolando Moise MD PCP phone number: [phone] Date of Admission: 11/07/2020 ( Hospital Day 0 days ) Attending:Maximino Mcallister MD ID: Cesar Thompson is a 84 y.o. male w/ PMH of CAD c/b NSTEMI s/p MINNIE to mLAD and oDiag1 (02/2017),ICM (LV EF 35% after CA to 60% 09/2017), AAA s/p endovascular repair [...] AN[facility], [facility] ??? PRO AAA REPAIR, 1ST VESSEL, EXTENSION PROSTH 04/12/2011 @EVG-PLACEMENT, CUFF OR EXT. AORTIC OR ILIAC ANEURYSM REPAIR, GORE performed by ACACIA BRYANT at [facility] OR ??? PRO AAA REPAIR, MODULR BIFUR PROSTH, 2-DOCK 04/12/2011 @[facility], AAA, W\ MODULAR BIFURCATED PROS. W\ 2 DOCKING LIMBS performed by ACACIA BRYANT at [facility] OR ??? PRO AAA REPR, EXPOSE FEMORAL ART, GROIN INCIS 04/12/2011 @EXPOSURE, OPEN FEM. ARTERY FOR ENDOVASCULAR PROSTHESIS, GROIN-AFBIANA performed by ACACIA BRYANT at [facility] OR ? ? PRO ENDOVASC REPAIR INFRARENAL AAA/DISSECTION S&I 04/12/2011 @EVG, INFRARENAL AAA OR DISSECTION, S&I performed by ACACIA BRYANT at [facility] OR Family History No family [...] Gas) No results found for: PHART, PO2ART, GKZ1HVN, ULR4UOT Microbiology: Microbiology Results (Last 30 days) No [...] who have questions please contact the health urgent care physician that requested your imaging first. Electronically signed by: Tyrone Jones MD, [facility] ([phone]), at 11/07/2020 8:[address] Angiogram Chest Abdomen Pelvis w Contrast (Exam End: 11/07/2020 10:10 AM) Impression 1. 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 2. 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 No direct endoleak noted, however, increase in the greatest dimensions of the makah aneurysm sac of indeterminate etiology. The endograft is widely patent Thank you for letting us participate in the care of this patient. If you are a health care provider and have any questions regarding this report, please contact the number below. For patients who have questions please contact the health urgent care physician that requested your imaging first. Electronically signed by: Isac Smith MD, [facility] ([phone]), at 11/07/2020 11:03 AM Medications Scheduled Meds: [...] and oDiag1 (02/2017), ICM(LV EF 35% after CA to 60% 09/2017), AAA s/p endovascular repair [...] Notes * Hospital Course - Sang Cota Jean - 11/09/2020 1:13 PM EDT #Symptomatic Atrial [...] Insurance: AARP SUPPLEMENT Prescription Coverage: Yes - [employer] Preferred Pharmacy: [id number] - [place], [place] - [address] [place] [address] AT [address] [facility] [address] [facility] [phone] This plan was formulated with input from patient, and team. All are in agreement with plan. Penny Bee RN, MSN Sales Planner - Cardiology Office of Care Management Pager: [phone] * Care Management - Penny Bee RN [...] Insurance: AARP SUPPLEMENT Prescription Coverage: Yes - [facility] [employer] Mei Hatch Preferred Pharmacy: [id number] - [place], [place] - [address] [place] [address] AT [address] [facility] [address] [place] [id number] Plan for discharge is: Home w/o Services [...] at 11:00 PM Penny Bee RN, MSN Sales Planner - Cardiology Office of Care Management Pager: [phone] * Initial Assessments - Penelope Castle RN [...] DPOA, however, none are on file at [facility]) If AD's have not been completed pts adult children would be DPOA. He has s/o , Montse who is emergency contact, would be surrogate decision maker per [place] surrogate decision making law. (Only good for 90 days) Any patient receiving care at [facility] must abide by [place] law. The hierarchy for surrogate decision making [...] (i) The agent with financial power of criminal attorney or a conservator appointed in accordance [...] Home Address confirmed as: [address] [facility] [address] Social & Family Supports: All names listed below confirmed with patient as current and correct Extended Emergency Contact Information Primary Emergency Contact: AdilsonMontse Address: [address] [place], [place] [address] [place] [address] Relation: Friend Current [...] AARP SUPPLEMENT Prescription Coverage: Yes Preferred Pharmacy: [id number] - [place], [place] - [address] [place] [address] AT [facility] [address] [facility] [address] [facility] [address] [facility] [address] [place] Status: Patient is a : Yes Are you enrolled in the PR for your healthcare?: No Primary Care Provider: Rolando Moise MD [phone] Patient/Caregiver Goals of Treatment: dc to home [...] of care planning. Penelope Castle RN Ext [phone] Pager [phone] * Plan of Care - Marilyn Condon [...] 12:15 PM EDT Laboratory Appointment Lab [address] [place] [phone] 02/02/2024 2:[address] [place] [id number] Pascale Barboza APRN [facility] [place] [address] 02/02/2024 2:30 PM EDT Office [place] [address] Erik Gill MD [facility] [place] [address] documented as of this encounter Procedures Procedure [...] EDT HC CBC,PLT & AUTO DIFF Routine 12:23 AM EDT POCT GLUCOSE Routine 11/07/2020 [...] Glucose, POC 198 65 - 199 mg/dL [facility] Comment: Supplemental ranges: <140 mg/dL before meals <180 mg/dL all other times of the day Blood 11/09/2020 11:2 7 AM EDT 11/09/2020 11:27 AM EDT Maximino Mcallister MD POINT OF CARE TEST ORDERABLES [facility] [place] [address] * POCT Glucose (11/09/2020 7:44 AM EDT) Glucose, POC 183 65 - 199 mg/dL [facility] Comment: Supplemental ranges: <140 mg/dL before meals <180 mg/dL all other times of the day Blood 11/09/2020 7:44 AM EDT 11/09/2020 7:44 AM EDT Maximino Mcallister MD POINT OF CARE TEST ORDERABLES [facility] [place] [address] * (ABNORMAL) BMP w/fasting Glucose (11/09/2020 6:57 AM EDT) Glucose Fasting 196(H) 65 - 99 mg/dL [facility] Comment: ?Fasting* Glucose Interpretive Criteria [...] Urea Nitrogen 26(H) 10 - 20 mg/dL [facility] Creatinine 1.64(H) 0.80 - 1.50 mg/dL [facility] Sodium 136 135 - 145 mmol/L [facility] Potassium 4.2 3.5 - 5.0 mmol/L [facility] Comment: Please note: ??Patients with WBC >100,000 may have falsely elevated Potassium levels. ??For accurate Potassium quantification in these patients send serum separator tube (gold top) for subsequent determinations. ??Contact the Clinical Chemistry Laboratory if there are any questions. Chloride 102 98 - 107 mmol/L [facility] Carbon Dioxide 23 22 - 31 mmol/L [facility] Anion Gap 11 5 - 15 mmol/L [facility] Calcium 8.8 8.5 - 10.5 mg/dL [facility] Est Glomerular Filtration Rate 38(L) >=60 mL/min/1. 73 m?? [facility] Comment: This patient? s estimated [...] MD CHEMISTRY ORDERABL ES Performing Organization Address City/[facility] Co de Phone Number [facility] [place] [address] * POCT Glucose (11/09/2020 3:09 AM EDT) Glucose, POC 174 65 - 199 mg/dL [facility] Comment: Supplemental ranges: <140 mg/dL before meals <180 mg/dL all other times of the day Blood 11/09/2020 3:09 AM EDT 11/09/2020 3:09 AM EDT Maximino Mcallister MD POINT OF CARE TEST ORDERABLES [facility] [place] [address] * POCT Glucose (11/09/2020 12:44 AM EDT) Glucose, POC 152 65 - 199 mg/dL [facility] Comment: Supplemental ranges: <140 mg/dL before meals <180 mg/dL all other times of the day Blood 11/09/2020 12:4 4 AM EDT 11/09/2020 12:44 AM EDT Maximino Mcallister MD POINT OF CARE TEST ORDERABLES Performing Organization Address [facility] [place]/[facility] Co de Phone Number [facility] [place] [address] * (ABNORMAL) POCT Glucose (11/08/2020 8:27 PM EDT) Glucose, POC 225(H) 65 - 199 mg/dL [facility] Comment: Supplemental ranges: <140 mg/dL before meals <180 mg/dL all other times of the day Blood 11/08/2020 8:27 PM EDT 11/08/2020 8:27 PM EDT Maximino Mcallister MD POINT OF CARE TEST ORDERABLES Performing Organization Address City/[facility]/ZIP Co de Phone Number [facility] [place] [address] * Electrolytes panel (11/08/2020 5:07 PM EDT) Sodium 137 135 - 145 mmol/L [facility] Potassium 4.4 3.5 - 5.0 mmol/L [facility] Comment: Please note: ??Patients with WBC >100,000 may have falsely elevated Potassium levels. ??For accurate Potassium quantification in these patients send serum separator tube (gold top) for subsequent determinations. ??Contact the Clinical Chemistry Laboratory if there are any questions. Chloride 100 98 - 107 mmol/L [facility] Carbon Dioxide 25 22 - 31 mmol/L [facility] Anion Gap 12 5 - 15 mmol/L [facility] Blood 11/08/2020 5:07 PM EDT 11/08/2020 5:19 PM EDT Narrative Resulting Agency Comment Spec In Lab Maximino Mcallister MD CHEMISTRY ORDERABL ES Performing Organization Address City/[facility]/ZIP Co de Phone Number [facility] [place] [address] * POCT Glucose (11/08/2020 5:06 PM EDT) Glucose, POC 161 65 - 199 mg/dL [facility] Comment: Supplemental ranges: <140 mg/dL before meals <180 mg/dL all other times of the day Blood 11/08/2020 5:06 PM EDT 11/08/2020 5:06 PM EDT Maximino Mcallister MD POINT OF CARE TEST ORDERABLES Performing Organization Address [facility] [place]/[facility]/ZIP Co de Phone Number [facility] [place] [address] * (ABNORMAL) POCT Glucose (11/08/2020 2:50 PM EDT) Glucose, POC 265(H) 65 - 199 mg/dL [facility] Comment: Supplemental ranges: <140 mg/dL before meals <180 mg/dL all other times of the day Blood 11/08/2020 2:50 PM EDT 11/08/2020 2:50 PM EDT Maximino Mcallister MD POINT OF CARE TEST ORDERABLES Performing Organization Address City/[facility]/ZIP Co de Phone Number [facility] [place] [address] * (ABNORMAL) POCT Glucose (11/08/2020 12:03 PM EDT) Glucose, POC 305(H) 65 - 199 mg/dL [facility] LABORATORY Comment: Supplemental ranges: <140 mg/dL before meals <180 mg/dL all other times of the day Blood 11/08/2020 12:0 3 PM EDT 11/08/2020 12:03 PM EDT Maximino Mcallister MD POINT OF CARE TEST ORDERABLES [facility] [place] [address] * (ABNORMAL) POCT Glucose (11/08/2020 10:16 AM EDT) Glucose, POC 302(H) 65 - 199 mg/dL [facility] Comment: Supplemental ranges: <140 mg/dL before meals <180 mg/dL all other times of the day Blood 11/08/2020 10:1 6 AM EDT 11/08/2020 10:16 AM EDT Maximino Mcallister MD POINT OF CARE TEST ORDERABLES Performing Organization Address City/[facility]/ZIP Co de Phone Number [facility] [place] [address] * (ABNORMAL) POCT Glucose (11/08/2020 7:40 AM EDT) Glucose, POC 255(H) 65 - 199 mg/dL [facility] Comment: Supplemental ranges: <140 mg/dL before meals <180 mg/dL all other times of the day Blood 11/08/2020 7:40 AM EDT 11/08/2020 7:40 AM EDT Maximino Mcallister MD POINT OF CARE TEST ORDERABLES [facility] [place] [address] * (ABNORMAL) POCT Glucose (11/08/2020 5:03 AM EDT) Glucose, POC 236(H) 65 - 199 mg/dL [facility] Comment: Supplemental ranges: <140 mg/dL before meals <180 mg/dL all other times of the day Blood 11/08/2020 5:03 AM EDT 11/08/2020 5:03 AM EDT Maximino Mcallister MD POINT OF CARE TEST ORDERABLES [facility] [place] [address] * (ABNORMAL) Differential, Automated (11/08/2020 12:23 AM EDT) [facility] Neutrophil % 70.8 % [facility] Neutrophil Absolute 10.06(H) 1.70 - 6.10 x10(3)/mc L [facility] Lymph % 17.5 % [facility] Lymphocytes Abs 2.5 0.9 - 3.2 x10(3)/mc L [facility] Monocyte % 9.1 % [facility] Monocyte Abs 1.3(H) 0.3 - 0.9 x10(3)/mc L [facility] Eos % 1.7 % [facility] Eosinophils Abs 0.2 0.0 - 0.4 x10(3)/ L [facility] Basophil % 0.5 % [facility] Baso Absolute 0.1 0.0 - 0.1 x10(3)/mc L [facility] Immature Gran % 0.40 % [facility] Comment: Immature granulocytes(IG's)percentage and absolute count will include metamyelocytes, myelocytes, and promyelocytes. Blood smears from CBCs yielding IG's will be scanned manually for concordance. If this scan disagrees with the automated IG or if promyelocytes are noted, a manual differential will be performed. Immature Gran Absolute 0.05(H) 0.00 - 0.04 x10(3)/mc L [facility] Blood 11/08/2020 12:2 3 AM EDT 11/08/2020 12:27 AM EDT Narrative Resulting Agency Comment Spec In Lab Adam Fuchs MD HEMATOLOGY ORDERABLE S [facility] [place] [address] * (ABNORMAL) Hemogram (11/08/2020 12:23 AM EDT) White Blood Cell 14.2(H) 4.0 - 9.5 x10(3)/mc L [facility] Red Blood Cell 4.59 4.58 - 5.54 x10(6)/mc L [facility] Hemoglobin 14.2 13.7 - 16.5 gm/dL [facility] Hematocrit 42.2 40.5 - 48.5 % [facility] Mean Cell Volume 91.9 82.9 - 93.1 fL [facility] Mean Cell Hemoglobin 30.9 27.5 - 32.1 pg [facility] Mean Cell Hemoglobin Concentration 33.6 32.0 - 35.7 gm/dL [facility] Platelet 175 145 - 357 x10(3)/mc L [facility] RDW Standard Deviation 39.8 36.0 - 45.0 [facility] RDW coefficient of variation 11.9 11.4 - 13.8 % [facility] Mean Platelet Volume 11.1 7.6 - 12.9 fL [facility] NRBC% auto 0.0 % [facility] NRBC Absolute 0.000 0.000 - 0.000 x10(3)/mc L [facility] Blood 11/08/2020 12:2 3 AM EDT 11/08/2020 12:27 AM EDT Narrative Resulting Agency Comment Spec In Lab Adam Fuchs MD HEMATOLOGY ORDERABLE S [facility] [place] [address] * (ABNORMAL) BMP w/fasting Glucose (11/08/2020 12:23 AM EDT) Glucose Fasting 254(H) 65 - 99 mg/dL [facility] Comment: ?Fasting* Glucose Interpretive Criteria [...] Urea Nitrogen 23(H) 10 - 20 mg/dL [facility] Creatinine 1.80(H) 0.80 - 1.50 mg/dL [facility] Sodium 136 135 - 145 mmol/L [facility] Potassium 4.5 3.5 - 5.0 mmol/L [facility] Comment: Please note: ??Patients with WBC >100,000 may have falsely elevated Potassium levels. ??For accurate Potassium quantification in these patients send serum separator tube (gold top) for subsequent determinations. ??Contact the Clinical Chemistry Laboratory if there are any questions. Chloride 102 98 - 107 mmol/L [facility] Carbon Dioxide 22 22 - 31 mmol/L [facility] Anion Gap 12 5 - 15 mmol/L [facility] Calcium 8.8 8.5 - 10.5 mg/dL [facility] Est Glomerular Filtration Rate 34(L) >=60 mL/min/1. 73 m?? [facility] Comment: This patient? s estimated [...] Lab Maximino Mcallister MD CHEMISTRY ORDERABL ES [facility] [place] [address] * Heparin (unfractionated) Level (11/08/2020 12:23 AM EDT) UF Heparin 0.42 IU/mL [facility] Comment: Guidelines for therapeutic unfractionated [...] MD HEMATOLOGY ORDERAB LES Performing Organization Address City/[facility]/ZIP Co de Phone Number [facility] [place] [address] * (ABNORMAL) POCT Glucose (11/07/2020 11:47 PM EDT) Glucose, POC 241(H) 65 - 199 mg/dL [facility] Comment: Supplemental ranges: <140 mg/dL before meals <180 mg/dL all other times of the day Blood 11/07/2020 11:4 7 PM EDT 11/07/2020 11:47 PM EDT Maximino Mcallister MD POINT OF CARE TEST ORDERABLES Performing Organization Address [facility] [place]/[facility]/ZIP Co de Phone Number [facility] [place] [address] * (ABNORMAL) POCT Glucose (11/07/2020 8:24 PM EDT) Glucose, POC 304(H) 65 - 199 mg/dL [facility] Comment: Supplemental ranges: <140 mg/dL before meals <180 mg/dL all other times of the day Blood 11/07/2020 8:24 PM EDT 11/07/2020 8:24 PM EDT Maximino Mcallister MD POINT OF CARE TEST ORDERABLES Performing Organization Address City/[facility]/ZIP Co de Phone Number [facility] [place] [address] * Heparin (unfractionated) Level (11/07/2020 6:36 PM EDT) UF Heparin 0.38 IU/mL [facility] Comment: Guidelines for therapeutic unfractionated [...] Lab Maximino Mcallister MD HEMATOLOGY ORDERAB LES [facility] [place] [address] * (ABNORMAL) Troponin (11/07/2020 5:07 PM EDT) Troponin-T 0.02(H) 0.00 - 0.00 ng/mL [facility] Comment: The 99th percentile for Troponin T is less than 0.01 ng/mL, any detectable cTnT concentration using this assay should be considered elevated. According to the third universal definition of myocardial infarction the following criteria with a clinical presentation consistent with acute myocardial ischemia meets the diagnosis for a myocardial infarction (CA). Detection of a rise and/or fall of cTnT, with at least one value greater than the 99th percentile (> or = 0.01) and with at least one of the following ?? Symptoms of ischemia ?? New or presumed new significant HV-fkgbbei-G wave (ST-T) changes or new left bundle [...] of the [employer] 2012;60:1581-98 Blood 11/07/2020 5:07 PM EDT 11/07/2020 5:16 PM EDT Narrative Resulting Agency Comment Spec In Lab Maximino Mcallister MD CHEMISTRY ORDERABL ES Performing Organization Address [facility] [place]/[facility] Co de Phone Number [facility] [place] [address] * (ABNORMAL) Electrolytes panel (11/07/2020 5:07 PM EDT) Sodium 135 135 - 145 mmol/L [facility] Potassium 4.9 3.5 - 5.0 mmol/L [facility] Comment: Please note: ??Patients with WBC >100,000 may have falsely elevated Potassium levels. ??For accurate Potassium quantification in these patients send serum separator tube (gold top) for subsequent determinations. ??Contact the Clinical Chemistry Laboratory if there are any questions. Chloride 104 98 - 107 mmol/L [facility] Carbon Dioxide 20(L) 22 - 31 mmol/L [facility] Anion Gap 11 5 - 15 mmol/L [facility] Blood 11/07/2020 5:07 PM EDT 11/07/2020 5:16 PM EDT Narrative Resulting Agency Comment Spec In Lab Maximino Mcallister MD CHEMISTRY ORDERABL ES Performing Organization Address [facility] [place]/[facility] Co de Phone Number [facility] [place] [address] * (ABNORMAL) POCT Glucose (11/07/2020 5:05 PM EDT) Glucose, POC 339(H) 65 - 199 mg/dL [facility] Comment: Supplemental ranges: <140 mg/dL before meals <180 mg/dL all other times of the day Blood 11/07/2020 5:05 PM EDT 11/07/2020 5:05 PM EDT Maximino Mcallister MD POINT OF CARE TEST ORDERABLES [facility] [place] [address] * NM Lung Perfusion Planar (11/07/2020 4:14 [...] who have questions please contact the health urgent care physician that requested your imaging first. ? Electronically signed by: Migue Francisco MD, [facility] ([phone]), at 11/09/2020 1:16 PM --------ORIGINAL REPORT -------- [...] who have questions please contact the health urgent care physician that requested your imaging first. ? Electronically signed by: Migue Francisco MD, [facility] ([phone]), at 11/07/2020 4:42 PM Addendum by Migue [...] who have questions please contact the health urgent care physician that requested your imaging first. ? Electronically signed by: Migue Francisco MD, [facility] ([phone]), at 11/07/2020 4:42 PM Impressions 11/07/2020 4:42 [...] who have questions please contact the health urgent care physician that requested your imaging first. ? Electronically signed by: Migue Francisco MD, [facility] ([phone]), at 11/07/2020 4:42 PM Narrative 11/07/2020 4:42 [...] patients who have questions please contactthe health urgent care physician that requested your imaging first. Electronically signed by: Migue Francisco MD, [facility]([phone]), at 11/07/2020 4:42 PM Maximino Mcallister MD [facility] ORDERABLES * ECHO COMPLETE (11/07/2020 11:24 AM EDT) Pathologist [facility] [employer] Anatomical Region Laterality Modality Other 11/07/2020 Narrative 11/07/2020 12:13 PM EDT Procedure: ?Transthoracic Echocardiogram Patient: ?EDD Hatch ?(Age): 1935(84y) Med Rec#: ? [id number] ?Sex: ?M ? [place] [facility] [place]t / Wt: ??178(cm)/88(kg) Pt. Loc: ?Adult Floor ? BSA: ?2.06 Study Date: ?? 11/07/2020 ?Pt. Type: Inpatient Tape: ? Referring: Maximino Mcallister ([id number]) Referring: [place] Reading: Eladio Willett ([id number]) Toll Collector: Moisés Estrella RDCS Diagnosis: *Chest pain, unspecified [...] ? Mid-Inferior ?Normal ? Mid-Inferoseptal ?Normal ? [place]-Septal ? Normal ? [place]-Anterior ? Normal ? [place]-Lateral ?Normal ? [place]-Inferior ? Normal ? [place]-Tip ?Normal ? This report has been electronically signed by: Eladio Willett M.D. ? 11/07/2020 12:13:06 Images reviewed and interpretation verified [facility] Cardiac Ultrasound Laboratory Procedure Note Eladio Willett MD - 11/07/2020 Procedure: Transthoracic Echocardiogram Patient: EDD Hatch (Age): 1935(84y) Med Rec#: [id number] Sex: M [place] [facility] [place] Ht / Wt: 178(cm)/88(kg) Pt. Loc: Adult Floor BSA: 2.06 Study Date: 11/07/2020 Pt. Type: Inpatient Tape: Referring: Maximino Mcallister ([id number]) Referring: [place] Reading: Eladio Willett ([id number]) Toll Collector: Moisés Estrella EMMANUEL Diagnosis: *Chest pain, unspecified (R07.9) *Abdominal aortic [...] Normal Mid-Posterolateral Normal Mid-Inferior Normal Mid-Inferoseptal Normal [place]-Septal Normal [place]-Anterior Normal [place]-Lateral Normal [place]-Inferior Normal [place]-Tip Normal This report has been electronically signed by: Eladio Willett M.D. 11/07/2020 12:13:06 Images reviewed and interpretation verified [facility] Cardiac Ultrasound Laboratory Maximino Mcallister MD ECHO ORDERABLES * (ABNORMAL) Troponin (11/07/2020 11:18 AM EDT) Troponin-T 0.02(H) 0.00 - 0.00 ng/mL [facility] Comment: The 99th percentile for Troponin T is less than 0.01 ng/mL, any detectable cTnT concentration using this assay should be considered elevated. According to the third universal definition of myocardial infarction the following criteria with a clinical presentation consistent with acute myocardial ischemia meets the diagnosis for a myocardial infarction (CA). Detection of a rise and/or fall of cTnT, with at least one value greater than the 99th percentile (> or = 0.01) and with at least one of the following ?? Symptoms of ischemia ?? New or presumed new significant MH-ganlnyp-L wave (ST-T) changes or new left bundle [...] of the [employer] 2012;60:1581-98 Blood 11/07/2020 11:1 8 AM EDT 11/07/2020 12:02 PM EDT Narrative Resulting Agency Comment Spec In Lab Maximino Mcallister MD CHEMISTRY ORDERABL ES [facility] [place] [address] * EKG 12 Lead (11/07/2020 11:14 AM EDT) Ventricular rate 108 BPM MUSE SYSTEM QRS Duration 80 ms MUSE SYSTEM Q-T Interval 354 ms MUSE SYSTEM QTC Calculated (Bezet) 474 ms MUSE SYSTEM Calculated R [place] 43 degrees MUSE SYSTEM Calculated T [place] 101 degrees MUSE SYSTEM INTERPRETATION Atrial fibrillation with rapid ventricular response Nonspecific ST and T wave abnormality Abnormal ECG When compared with ECG of 10-MAR-2017 14:33, Atrial fibrillation has replaced Sinus rhythm Vent. 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 The endograft is widely patent Thank you for letting us participate in the care of this patient. ??If you are a health care provider and have any questions regarding this report, please contact the number below. ??For patients who have questions please contact the health urgent care physician that requested your imaging first. ? Electronically signed by: Isac Smith MD, [facility] ([phone]), at 11/07/2020 11:03 AM Narrative 11/07/2020 11:03 [...] arteries. No endoleak. The greatest dimensions of makah aneurysm sac have increased, measuring 7.2 x [...] intravenous administration of contrast. 75 cc of [id number]. Maximum intensity projection (MIP) were reformatted. 3-D [...] arteries. No endoleak. The greatest dimensions of makah aneurysmsac have increased, measuring 7.2 x 8.5 [...] however, increase in the greatestdimensions of the makah aneurysm sac of indeterminate etiology. The endograft iswidely patent Thank you for letting us participate in the care of this patient. If youare a health care provider and have any questions regarding this report,please contact the number below. For patients who have questions please contactthe health urgent care physician that requested your imaging first. Electronically signed by: Isac Smith MD, [facility]([phone]), at 11/07/2020 11:03 AM Maximino Mcallister MD IMG CT ORDERABLES * (ABNORMAL) Hemoglobin A1c (11/07/2020 8:50 AM EDT) Hemoglobin A1c 11.3(H) 4.3 - 5.6 % [facility] Comment: Reference Range: 4.3 - [...] Mellitus, Diabetes Care 2013; 36: Suppl. 1, S67-74 Estimated Average Glucose See note mg/dL [facility] Comment: Estimated Average Glucose not [...] into estimated average glucose values. ??Diabetes Care 2008:31(8):4334-7466. Blood Venous Draw / Unknown 11/07/2020 8:50 AM EDT 11/07/2020 11:00 AM EDT Narrative Resulting Agency Comment Spec In Lab Evan Sinclair MD CHEMISTRY ORDERABLES [facility] [place] [address] * (ABNORMAL) Differential, Automated (11/07/2020 8:50 AM EDT) Neutrophil % 76.7 % [facility] Neutrophil Absolute 10.62(H) 1.70 - 6.10 x10(3)/mc L [facility] Lymph % 13.1 % [facility] Lymphocytes Abs 1.8 0.9 - 3.2 x10(3)/mc L [facility] Monocyte % 7.0 % [facility] Monocyte Abs 1.0(H) 0.3 - 0.9 x10(3)/mc L [facility] Eos % 2.2 % [facility] Eosinophils Abs 0.3 0.0 - 0.4 x10(3)/[facility]OR[facility] Basophil % 0.6 % [facility] Baso Absolute 0.1 0.0 - 0.1 x10(3)/[facility] LABORATORY Immature Gran % 0.40 % [facility] Comment: Immature granulocytes(IG's)percentage and absolute count will include metamyelocytes, myelocytes, and promyelocytes. Blood smears from CBCs yielding IG's will be scanned manually for concordance. If this scan disagrees with the automated IG or if promyelocytes are noted, a manual differential will be performed. Immature Gran Absolute 0.05(H) 0.00 - 0.04 x10(3)/[facility] LABORATORY Blood 11/07/2020 8:50 AM EDT 11/07/2020 9:19 AM EDT Narrative Resulting Agency Comment Spec In Lab Evan Sinclair MD HEMATOLOGY ORDERABLE S [facility] [place] [address] * (ABNORMAL) Hemogram (11/07/2020 8:50 AM EDT) White Blood Cell 13.8(H) 4.0 - 9.5 x10(3)/ L [facility] Red Blood Cell 4.87 4.58 - 5.54 x10(6)/ L [facility] Hemoglobin 15.0 13.7 - 16.5 gm/dL [facility] Hematocrit 44.9 40.5 - 48.5 % [facility] Mean Cell Volume 92.2 82.9 - 93.1 fL [facility] Mean Cell Hemoglobin 30.8 27.5 - 32.1 pg [facility] Mean Cell Hemoglobin Concentration 33.4 32.0 - 35.7 gm/dL [facility] Platelet 171 145 - 357 x10(3)/ L [facility] RDW Standard Deviation 40.0 36.0 - 45.0 [facility] RDW coefficient of variation 11.8 11.4 - 13.8 % [facility] Mean Platelet Volume 11.5 7.6 - 12.9 [facility] NRBC% auto 0.0 % [facility] NRBC Absolute 0.000 0.000 - 0.000 x10(3)/mc L [facility] Blood 11/07/2020 8:50 AM EDT 11/07/2020 9:19 AM EDT Narrative Resulting Agency Comment Spec In Lab Evan Sinclair MD HEMATOLOGY ORDERABLE S Performing Organization Address City/[facility] Co de Phone Number [facility] [place] [address] * (ABNORMAL) D-Dimer, Quantitative (11/07/2020 8:50 AM EDT) D-Dimer 4,219(H) 0 - 500 FEU ng/ml [facility] Comment: The D-Dimer assay is [...] Lab Maximino Mcallister MD HEMATOLOGY ORDERAB LES [facility] [place] [address] * APTT (11/07/2020 8:50 AM EDT) Partial Thromboplastin Time 26 25 - 37 sec [facility] Comment: The PTT is NOT appropriate for heparin monitoring. Use the Anti-Xa level for heparin monitoring (HEP UFH) or LMWH monitoring (HEP LMW). A PTT less than 37 seconds generally indicates adequate hemostasis. Blood 11/07/2020 8:50 AM EDT 11/07/2020 9:19 AM EDT Narrative Resulting Agency Comment Spec In Lab Maximino Mcallister MD HEMATOLOGY ORDERAB LES Performing Organization Address [facility] de Phone Number [facility] [place] [address] * Prothrombin Time (11/07/2020 8:50 AM EDT) Prothrombin Time 10.5 9.4 - 12.5 sec [facility] International Normalization Ratio 0.9 [facility] Comment: An INR <2.0 indicates [...] MD HEMATOLOGY ORDERAB LES Performing Organization Address [facility] [place]/[facility] de Phone Number [facility] [place] [address] * Hepatic Function Panel (11/07/2020 8:50 AM EDT) Protein, Total 6.7 6.1 - 8.0 gm/dL [facility] Albumin 3.9 3.2 - 5.2 gm/dL [facility] Aspartate Aminotransferase 29 0 - 39 unit/L [facility] Alanine Aminotransferase 46 0 - 55 unit/L [facility] Alkaline Phosphatase 118 40 - 130 unit/L [facility] Bilirubin, Total 0.8 0.2 - 1.3 mg/dL [facility] Bilirubin, Direct 0.2 0.0 - 0.3 mg/dL [facility] Blood 11/07/2020 8:50 AM EDT 11/07/2020 9:19 AM EDT Narrative Resulting Agency Comment Spec In Lab Maximino Mcallister MD CHEMISTRY ORDERABL ES Performing Organization Address City/[facility] Co de Phone Number [facility] [place] [address] * (ABNORMAL) pro-Brain Natriuretic Peptide (11/07/2020 8:50 AM EDT) NT-proBNP 488(H) <=449 pg/mL [facility] Blood 11/07/2020 8:50 AM EDT 11/07/2020 9:19 AM EDT Narrative Resulting Agency Comment Spec In Lab Maximino Mcallister MD CHEMISTRY ORDERABL ES Performing Organization Address [facility] [place]/[facility] Co de Phone Number [facility] [place] [address] * TSH (11/07/2020 8:50 AM EDT) Thyroid Stimulating Hormone 1.38 0.27 - 4.20 mcIU/mL [facility] Blood 11/07/2020 8:50 AM EDT 11/07/2020 9:19 AM EDT Narrative Resulting Agency Comment Spec In Lab Maximino Mcallister MD CHEMISTRY ORDERABL ES Performing Organization Address [facility] [place]/[facility] Co de Phone Number [facility] [place] [address] * Phosphorus (11/07/2020 8:50 AM EDT) Phosphorus 3.3 2.5 - 4.5 mg/dL [facility] Blood 11/07/2020 8:50 AM EDT 11/07/2020 9:19 AM EDT Narrative Resulting Agency Comment Spec In Lab Maximino Mcallister MD CHEMISTRY ORDERABL ES Performing Organization Address [facility] [place]/[facility] Co de Phone Number [facility] [place] [address] * Magnesium (11/07/2020 8:50 AM EDT) Magnesium 0.94 0.69 - 1.07 mmol/L [facility] Blood 11/07/2020 8:50 AM EDT 11/07/2020 9:19 AM EDT Narrative Resulting Agency Comment Spec In Lab Maximino Mcallister MD CHEMISTRY ORDERABL ES Performing Organization Address [facility] [place]/[facility] Co de Phone Number [facility] [place] [address] * (ABNORMAL) Basic Metabolic Panel (non-fasting) (11/07/2020 8:50 AM EDT) Glucose 405(H) 65 - 199 mg/dL [facility] Comment:Diabetes: >=200 mg/d L plus symptoms Blood Urea Nitrogen 26(H) 10 - 20 mg/dL [facility] Creatinine 1.91(H) 0.80 - 1.50 mg/dL [facility] Sodium 138 135 - 145 mmol/L [facility] Potassium 4.6 3.5 - 5.0 mmol/L [facility] Comment: Please note: ??Patients with WBC >100,000 may have falsely elevated Potassium levels. ??For accurate Potassium quantification in these patients send serum separator tube (gold top) for subsequent determinations. ??Contact the Clinical Chemistry Laboratory if there are any questions. Chloride 101 98 - 107 mmol/L [facility] Carbon Dioxide 24 22 - 31 mmol/L [facility] Anion Gap 13 5 - 15 mmol/L [facility] Calcium 9.4 8.5 - 10.5 mg/dL [facility] Est Glomerular Filtration Rate 32(L) >=60 mL/min/1. 73 m?? [facility] Comment: This patient? s estimated [...] Lab Maximino Mcallister MD CHEMISTRY ORDERABL ES [facility] [place] [address] * XR Chest One View (11/07/2020 8:35 [...] who have questions please contact the health urgent care physician that requested your imaging first. ? Electronically signed by: Tyrone Jones MD, [facility] ([phone]), at 11/07/2020 8:39 AM Narrative 11/07/2020 8:39 AM EDT EXAMINATION: XR [...] patients who have questions please contactthe health urgent care physician that requested your imaging first. Electronically signed by: [facility]([phone]), at 11/07/2020 8:39 AM Maximino Mcallister MD [...] Oral, EVERY 6 HOURS PRN, Starting on 11/08/20 at 0809, Until Lisa 11/09/20 at 0843, [...] PRN, Starting on Fri11/07/20 at 0749, Until Lisa 11/09/20 at 1821, Chest pain, May repeat [...] 1704 (Given - Provider: Julius Leon RN) 0831 (Given - Provider: Julius Leon RN) apixaban [...] 1300, Routine 1230 (Given - Provider: Oscar Rojo, MARILYN) atorvastatin (Lipitor) tablet 40 mg 40 mg, Oral, EVERY EVENING, First dose on Fri11/07/20 at 1700, Until Discontinued, Routine 1654 (Given - Provider: Oscar Rojo, MARILYN) 1703 (Given - Provider: Julius Leon, RN) clopidogreL (Plavix) tablet 300 mg (COMPLETED) 300 mg, Oral, ONCE, 1 dose, On Fri11/07/20 at 1300, Routine 1230 (Given - Provider: Oscar Rojo, RN) clopidogreL (Plavix) tablet 75 mg (CANCELED) 75 mg, Oral, DAILY, First dose (after last modification) on Fri11/08/20 at 0900, Until Discontinued, Routine 0814 (Given - Provider: Brandi Monsalve, MARILYN) insulin glargine (Lantus) (100 unit/mL) subcutaneous injection vial 10 Units 10 Units, Subcutaneous, DAILY, First dose on Fri11/08/20 at 1000, Until Discontinued, Routine 1028 (Given - Provider: Brandi Monsalve RN) 0831 (Given - Provider: Julius Leon, [...] Rachel Orosco RN)1732 (Given - Provider: Julius Leon RN) 0833 (Given - Provider: Julius Leon, RN)1402 (Given - Provider: Julius Leon RN) insulin lispro (HumaLOG;Admelog) (100 unit/mL) subcutaneous [...] > 240 mg/dL in 2 hours., Routine 170 (Given - Provider: Oscar Rojo, MARILYN)202 (Given - Provider: Randy Muniz, RN)2347 (Given - Provider: Randy Muniz, RN) 0505 (Given - Provider: Randy Muniz, RN)0816 (Given - Provider: Brandi Monsalve RN - Comment: bg 255)1252 (Given - Provider: Rachel Orosco RN)1712 (Given - Provider: Julius Leon, RN)2028 (Given - Provider: Tomas Nelson, MARILYN) 0000 (Given - Provider: Tomas Nelson, RN)0400 (Given - Provider: Tomas Nelson, RN)0833 (Given - Provider: Julius Leon, RN) lisinopriL (Prinivil;Zestril) tablet 5 mg 5 mg, Oral, DAILY, First dose on Fri11/09/20 at 0930, Until Discontinued, Hold for SBP<90, Routine 0910 (Given - Provider: Julius Leon, MARILYN) melatonin tablet 6 mg (CANCELED) 6 mg, Oral, NIGHTLY, First dose on Fri11/08/20 at 2315, Until Discontinued, Routine 2227 (Given - Provider: Tomas Nelson, MARILYN) metoprolol succinate XL (Toprol-XL) tablet 50 mg 50 mg, Oral, DAILY, First dose on Fri11/09/20 at 0915, Until Discontinued, DO NOT CRUSH OR OPEN, Routine 0839 (Given - Provider: Julius Leon, MARILYN) metoprolol tartrate (Lopressor) tablet 25 mg (CANCELED) [...] Discontinued, Routine 2100 (Hold - Provider: Randy Muniz, RN - Reason: Contraindicated) 0900 (Not Given - Provider: Brandi Monsalve, MARILYN - Reason: Contraindicated)2003 (Given - Provider: Tomas Nelson RN) sodium chloride 0.9 % (flush) flush 5 mL (CANCELED) 5 mL, Intravenous, 2 TIMES DAILY, First dose on Fri11/07/20 at 0900, Until Discontinued, Routine 0856 (Given - Provider: Oscar Rojo RN)2099 (Not Given - Provider: Randy Muniz, RN - Reason: Contraindicated) 0816 (Given - Provider: Brandi Monsalve, MARILYN)2099 (Given - Provider: Tomas Nelson, MARILYN) 0831 (Given - Provider: Julius Leon RN) Continuous Medication Order 11/07/2020 11/08/2020 11/09/2020 AMIOdarone [...] regarding infusion or change to oral dosing. 1701 (New Bag - Provider: Oscar Rojo RN)2027 (New Bag - Provider: Randy Muniz RN)2300 (Rate/Dose Change - Provider: Randy Muniz RN - Comment: change to 0.5) 0342 (New Bag - Provider: Randy Muniz RN) dilTIAZem (Cardizem) (1 mg/mL) in dextrose [...] RN) 1250 (New Bag - Provider: Rachel Orosco, RN)1528 (Stopped - Provider: Julius Leon RN) [...] Oscar Rojo, MARILYN)2100 (Stopped - Provider: Randy Muniz RN) PRN Medication Order 11/07/2020 11/08/2020 11/09/2020 acetaminophen (Tylenol) tablet 650 mg (CANCELED) 650 mg, Oral, EVERY 6 HOURS PRN, Starting on Fri11/08/20 at 0809, Until Fri11/09/20 at 0843, Pain, Maximum dose of acetaminophen is 4000 mg from all sources in 24 hours. When ordered for pain, acetaminophen should be given even when other ordered pain medications are indicated. , Routine 08 (Given - Provider: Brandi Monsalve RN)3 (Given - Provider: Tomas Nelson RN) dextrose [...] Oscar Rojo RN)1502 (Given - Provider: Julius Leon, RN) 1734 (Given - Provider: Julius Leon, RN)2019 (Given - Provider: Tomas Nelson, MARILYN) nitroGLYcerin (Nitrostat) disintegrating tablet 0.4 mg 0.4 mg, Sublingual, EVERY 5 MIN PRN, Starting on Fri11/07/20 at 0749, Until Lisa 11/09/20 at 1821, Chest pain, May repeat [...] Routine documented in this encounter Care Teams Fire Investigation Manager Relationship Specialty Start Date End Date Rolando Moise MD PCP - General Family Medicine 09/16/16 documented as of this encounter
--- OUTSIDE RECORDS SUMMARY | 2024-01-25 13:42 | XMS_ITS | Encounter Summary ---
Author Organization [facility] [place] [address] Care Team Providers Care Career Guidance Technician Name Role Phone Rolando Moise MD Primary Care Provider Encounter Details Date Type Department Care Team (Late st Contact Info) Description 07/18/2018 11:05 AM EDT Ancillary Procedure Radiology Library at [facility] [place] [phone] Lisa Alan MD [facility] [place] [address] Social History Tobacco Use Types Packs/Day Years [...] 12:15 PM EDT Laboratory Appointment Lab [address] [place] [phone] 02/02/2024 2:[address] [place] [phone] Pascale Barboza APRN [facility] [place] [address] 02/02/2024 2:30 PM EDT Office [place] [address] Erik Gill MD [facility] [place] [address] documented as of this encounter Procedures Procedure Name Priority Date/Time Associated Diagnosis Comments FILM LIBRARY STORAGE ONLY CT ABDOMEN AND PELVIS Routine 07/18/2018 11:01 AM EDT documented in this encounter Results * Film Library- Storage Only CT Abdomen & Pelvis (07/18/2018 11:01 AM EDT) Narrative [facility] - 07/18/2018 11:01 AM EDT This exam is auto-finalizing. It's purpose is for storage only. Lisa Infante MD IMG FILM LIBRARY ORDERABLES Performing Organization Address City/State/[facility] Co de Phone Number [place], [place] documented in this encounter Visit Diagnoses Not on filedocumented in this encounter Care Teams Career Guidance Technician Relationship Specialty Start Date End Date Rolando Moise MD PCP - General Family Medicine 09/16/16 documented as of this encounter
--- OUTSIDE RECORDS SUMMARY | 2024-01-25 13:42 | XMS_ITS | Encounter Summary ---
Author Organization [facility] Address [facility] [place] [address] Care Team Providers Care Technical Sme Name Role Phone Rolando Moise MD Primary Care Provider [phone] Encounter Details Date Type Department Care Team (Late st Contact Info) Description 11/07/2020 External [place] [phone] Social History Tobacco Use Types Packs/Day Years [...] 12:15 PM EDT Laboratory Appointment Lab [address] [place] [phone] 02/02/2024 2:[address] [place] [address] [facility] VASCULAR SURGERY [place], [place] [address] 02/02/2024 2:30 PM EDT Office [place] [phone] [facility] [place] [address] documented as of this encounter Procedures Procedure Name Priority Date/Time Associated Diagnosis Comments ECG SCAN Routine 11/07/2020 documented in this encounter Results * Scan Doc: ECG (11/07/2020) Historical Provider MD DELACRUZ MGR SCAN EX T ORDR/RSLT documented in this encounter Visit Diagnoses Not on filedocumented in this encounter Care Teams Technical Sme Relationship Specialty Start Date End Date Rolando Moise MD PCP - General Family Medicine 09/16/16 documented as of this encounter
--- OUTSIDE RECORDS SUMMARY | 2024-01-25 13:42 | XMS_ITS | Encounter Summary ---
Author Organization [facility] Address [facility] [place] [address] Care Team Providers Care Die Out Worker Name Role Phone Rolando Moise MD Primary Care Provider [phone] Reason for Referral * Diagnostic Test (Routine) - Closed Specialty Diagnoses / Procedures Referred By Teodoro robertson Referred To Contact Cardiology Diagnoses Cardiomyopathy, ischemic Procedures Echocardiogram Transthoracic(Leb) Muriel Manning MD [facility] [place] [address] [facility] [place] [address] Referral ID Status Reason Start Date Expiration Date V isits Requested Visits Authorized [id number] Closed Specialty Service Requested 05/27/2017 05/27/2018 1 1 Reason for Visit * Diagnostic Test (Routine) - Closed Specialty Diagnoses / Procedures Referred By Teodoro robertson Referred To Contact Cardiology Diagnoses Cardiomyopathy, ischemic Procedures Echocardiogram Transthoracic(Leb) Muriel Manning MD [facility] [place] [address] [facility] [place] [address] Referral ID Status Reason Start Date Expiration Date V isits Requested Visits Authorized [id number] Closed Specialty Service Requested 05/27/2017 05/27/2018 1 1 Encounter Details Date Type Department Care Team (Latest Contact Info) Description 09/22/2017 12:50 PM EDT - 09/22/2017 11:59 PM EDT Hospital Encounter [place] [address] Muriel Manning MD [place] [address] Cardiomyopathy, ischemic Discharge Disposition: Home Social History [...] 12:15 PM EDT Laboratory Appointment Lab [address] [place] [address] 02/02/2024 2:[address] [place] [place] [address] Pascale Barboza APRN [facility] [place] [address] 02/02/2024 2:30 PM EDT Office [place] [address] Erik Gill MD [facility] [place] [address] documented as of this encounter Procedures Procedure Name Priority Date/Time Associated Diagnosis Comments ECHO COMPLETE Routine 09/22/2017 2:33 PM EDT Cardiomyopathy, ischemic documented in this encounter Results * ECHO COMPLETE (09/22/2017 2:33 PM EDT) Pathologist Ringadoc EF 60 HEARTLAB SYSTEM Anatomical Region Laterality Modality Other 09/22/2017 Narrative 09/22/2017 2:40 PM EDT Procedure: ?Transthoracic Echocardiogram Patient: ?EDD Hatch ?(Age): 1935(81y) Med Rec#: ? [id number] ?Sex: ?M ? Site Loc: ? [facility] [place] ?Ht / Wt: ??178(cm)/88(kg) Pt. Loc: ?Echo Lab ?BSA: ?2.06 Study Date: ?? 09/22/2017 ?Pt. Type: Outpatient Tape: ? Referring: MURIEL MANNING T Reading: Hazel Bayron A ([id number]) Veneer Jointer Helper: Taisha Davidson Diagnosis: *ICD-10-PCS Ischemic cardiomyopathy (I25.5) [...] E-wave Vmax ?0.7 ?m/sec ? MV deceleration dhbb100 ?msec ? MV A-wave Vmax ?1.3 ?m/sec [...] ? Mid-Inferior ?Normal ? Mid-Inferoseptal ?Normal ? [place]-Septal ? Normal ? [place]-Anterior ? Normal ? [place]-Lateral ?Normal ? [place]-Inferior ? Normal ? [place]-Tip ?Normal ? This report has been electronically signed by: Bayron Oliva M.D. ? 09/22/2017 14:40:07 Images reviewed and interpretation verified [facility] Cardiac Ultrasound Laboratory Procedure Note Bayron Oliva MD - 09/22/2017 Procedure: Transthoracic Echocardiogram Patient: EDD Hatch (Age): 1935(81y) Med Rec#: [id number] Sex: M Site Loc: [facility] [place] Ht / Wt: 178(cm)/88(kg) Pt. Loc: Echo Lab BSA: 2.06 Study Date: 09/22/2017 Pt. Type: Outpatient Tape: Referring: MURIEL MANNING T Reading: Bayron Oliva ([id number]) Veneer Jointer Helper: Taisha Davidson Diagnosis: *ICD-10-PCS Ischemic cardiomyopathy (I25.5) [...] MV E-wave Vmax 0.7 m/sec MV deceleration bijl989 msec MV A-wave Vmax 1.3 m/sec MV [...] Normal Mid-Posterolateral Normal Mid-Inferior Normal Mid-Inferoseptal Normal [place]-Septal Normal [place]-Anterior Normal [place]-Lateral Normal [place]-Inferior Normal [place]-Tip Normal This report has been electronically signed by: Bayron Oliva M.D. 09/22/2017 14:40:07 Images reviewed and interpretation verified [facility] Cardiac Ultrasound Laboratory Muriel Manning MD ECHO ORDERABLES documented in this encounter Visit Diagnoses Diagnosis Cardiomyopathy, ischemic Other specified forms of chronic ischemic heart disease documented in this encounter Care Teams Die Out Worker Relationship Specialty Start Date End Date Rolando Moise MD PCP - General Family Medicine 09/16/16 documented as of this encounter
--- OUTSIDE RECORDS SUMMARY | 2024-01-25 13:42 | XMS_ITS | Encounter Summary ---
Author Organization [facility] Address [facility] [place] [address] Care Team Providers Care Tonal Regulator Name Role Phone Rolando Moise MD Primary Care Provider [phone] Encounter Details Date Type Department Care Team (Late st Contact Info) Description 11/07/2020 Telephone Cardiology at [address] [address] Luis Villalobos MD [facility] [place] [address] Social History Tobacco Use Types Packs/Day Years [...] oDiag1 (02/2017), ICM (LV EF 35% after AR to 60% 09/2017), AAA s/p endovascular repair (04/2011) who presented to [facility] with chest pain. The day prior [...] or examined this patient. Luis Villalobos MD District Manager documented in this encounter Plan of Treatment Upcoming Encounters Date Type Department Care Team (Late st Contact Info) Description 02/02/2024 12:15 PM EDT Laboratory Appointment Lab [address] [place] [address] 02/02/2024 2:[address] Scan at [place] [phone] Pascale Barboza, RADHA [facility] [place] [address] 02/02/2024 2:30 PM EDT Office Visit Vascular Surgery at [place] [phone] Erik Gill MD [facility] [place] [address] documented as of this encounter Visit Diagnoses Not on filedocumented in this encounter Care Teams Tonal Regulator Relationship Specialty Start Date End Date Rolando Moise MD PCP - General Family Medicine 09/16/16 documented as of this encounter
--- OUTSIDE RECORDS SUMMARY | 2024-01-25 13:42 | XMS_ITS | Encounter Summary ---
Author Organization [facility] [place] [address] Care Team Providers Care Cylinder Machine Operator Pulp Drier Name Role Phone Rolando Moise MD Primary Care Provider [phone] Encounter Details Date Type Department Care Team (Late st Contact Info) Description 11/07/2020 4:20 AM EDT Ancillary Procedure Radiology Library at [facility] [phone] Rolando Moise MD [address] [place] [address] [place] [id number] Social History Tobacco Use Types Packs/Day Years [...] 12:15 PM EDT Laboratory Appointment Lab [address] [place] [phone] 02/02/2024 2:[address] [place] [phone] Pascale Barboza, BATHROOM TILING PROFESSIONAL [facility] [place] [address] 02/02/2024 2:30 PM EDT Office [place] [address] Erik Gill MD [facility] [place] [address] documented as of this encounter Procedures Procedure Name Priority Date/Time Associated Diagnosis Comments FILM LIBRARY STORAGE ONLY CT CHEST ABDOMEN PELVIS Routine 11/07/2020 4:19 AM EDT documented in this encounter Results * Film Library- Storage Only CT Chest Abdomen Pelvis (11/07/2020 4:19 AM EDT) Narrative [facility] - 11/07/2020 4:19 AM EDT This exam is auto-finalizing. It's purpose is for storage only. Rolando Moise MD IMG FILM LIBRARY ORD ERABLES [place], [place] documented in this encounter Visit Diagnoses Not on filedocumented in this encounter Care Teams Cylinder Machine Operator Pulp Drier Relationship Specialty Start Date End Date Rolando Moise MD PCP - General Family Medicine 09/16/16 documented as of this encounter
--- OUTSIDE RECORDS SUMMARY | 2024-01-25 13:42 | XMS_ITS | Encounter Summary ---
Author [facility] [place] [address] Care Team Providers Care Unbundler Name Role Phone Rolando Moise MD Primary Care Provider [phone] Reason for Visit * Auth/Cert Specialty Diagnoses / Procedures Referred By Contac t Referred To Contact Diagnoses NSTEMI (non-ST elevated myocardial infarction) NSTEMI ?CAD Procedures CARDIAC CATHETERIZATION Referral ID Status Reason Start Date Expiration Date Visits Re quested Visits Authorized [id number] 1 1 Encounter Details Date Type Department Care Team (Latest Contact Info) Description 02/03/2017 11:45 AM EDT - 02/03/2017 11:59 PM EDT Hospital Encounter Non-[place] [phone] Discharge Disposition: Home Social History Tobacco Use [...] Take 20 mg by mouth daily. 02/05/2017 [place]-3 Fatty Acids-Vitamin E (FISH OIL) 1,000 mg Cap Take by mouth daily. Reported on 09/16/2016 02/05/2017 metFORMIN (GLUCOPHAGE) 500 mg tablet Take 500 mg by mouth 2 times daily (with meals). 11/09/2020 documented as of this encounter Plan of Treatment Upcoming Encounters Date Type Department Care Team (Late st Contact Info) Description 02/02/2024 12:15 PM EDT Laboratory Appointment Lab [address] [place] [phone] 02/02/2024 2:[address] [place] [phone] Pascale Barboza, MERCURY RECOVERER [facility] [place] [address] 02/02/2024 2:30 PM EDT Office [place] [address] Erik Gill MD [facility] [place] [address] documented as of this encounter Procedures Procedure [...] mLs documented in this encounter Care Teams Unbundler Relationship Specialty Start Date End Date Rolando Moise MD PCP - General Family Medicine 09/16/16 documented as of this encounter
--- OUTSIDE RECORDS SUMMARY | 2024-01-25 13:42 | XMS_ITS | Encounter Summary ---
Author Organization [facility] [place] [address] Care Team Providers Care Wool Washer Feeder Name Role Phone Rolando Moise MD Primary Care Provider [phone] Encounter Details Date Type Department Care Team (Late st Contact Info) Description 05/26/2019 Telephone [place] [phone] Elle Cunningham Social History Tobacco Use Types [...] 04/19/2019 ) 05/25/19 orders in ltr sent L Have been unable to reach patient. Closing recall. documented in this encounter Plan of Treatment Upcoming Encounters Date Type Department Care Team (Late st Contact Info) Description 02/02/2024 12:15 PM EDT Laboratory Appointment Lab [address] [place] [phone] 02/02/2024 2:[address] [place] [place] [address] Pascale Barboza APRN [facility] [place] [address] 02/02/2024 2:30 PM EDT Office [place] [phone] Erik Gill MD [facility] [place] [address] documented as of this encounter Visit Diagnoses Not on filedocumented in this encounter Care Teams Wool Washer Feeder Relationship Specialty Start Date End Date Rolando Moise MD PCP - General Family Medicine 09/16/16 documented as of this encounter
--- OUTSIDE RECORDS SUMMARY | 2024-01-25 13:42 | XMS_ITS | Encounter Summary ---
Author Organization [facility] Address [facility] [place] [address] Care Team Providers Care Mental Measurements Teacher Name Role Phone Rolando Moise MD Primary Care Provider [phone] Reason for Visit * Auth/Cert Specialty Diagnoses / Procedures Referred By Contac t Referred To Contact Diagnoses NSTEMI (non-ST elevated myocardial infarction) NSTEMI ?CAD Procedures CARDIAC CATHETERIZATION Referral ID Status Reason Start Date Expiration Date Visits Re quested Visits Authorized [id number] 1 1 Encounter Details Date Type Department Care Team (Late st Contact Info) Description 02/03/2017 2:40 PM EDT - 02/03/2017 3:40 PM EDT Surgery Gravel Weigher [facility] [phone] Lydia Harden MD [facility] [place] [address] CARDIAC CATHETERIZATION Social History Tobacco Use Types [...] Cesar Thompson Patient Age: 81 y.o. Language: Nepalese Race: White Ethnicity: Not nor Admit date: 02/03/2017 Discharge date and time: 02/05/2017 Attending Physician: Bayron Oliva MD Discharge Physician: Bayron Oliva MD Follow-up Recommendations for Providers: 1. Continue clopidogrel 75 mg and aspirin 81 mg PO daily for 12 months otherwise told differently by Security Intern. 2. Please monitor heart rate and blood pressure. 3. Start metoprolol XL 100 mg daily 4. Discontinue verapamil 120 mg tablet PO 5. Resume metformin 500 mg tablet PO two times a day, needs to take his second metformin dose tonight. Inpatient Provider Contact Information: Lili Ryan PA-C [facility] Provider # [id number] Discharge Diagnoses (Hospital Problems) and Secondary Diagnoses [...] above for more information.) History of Presentation: [facility] Comments: Mr. Thompson is an 81-year-old male with a past medical history of hypertension, AAA, hyperlipidemia and diabetes mellitus hif-hwzqxph-dwpddevum who presented to [facility] with complaint [...] to the ED. He drove himself. ?? [facility] did an EKG which showed sinus [...] is most likely a non-STEMI. ED called [facility] cardiology which recommended to start Plavix 300 mg orally and was started to heparin per ACS protocol. ?? Hospital Course: On admission to [facility], the patient had complaints of chest pain and some shortness of breath with exertion. Telemetry was attached which showed normal sinus rhythm. Heparin drip was infusing. [facility] records/transfer records were reviewed. Baseline labs were checked and/or drawn. NSTEMI Given the patient's risk factors and ECG changes, positive biomarkers, it was decided to proceed with coronary angiography. The patient went to the cardiac sawyer cork slabs for a diagnostic cath which showedone vessel [...] 2:00 PM Shoshana Gaspar APRN Cardiology at [place] [phone] Future Orders Complete By Expires Referral to Cardiac Rehab [[id number] Custom] As directed Process Instructions: If no progress note charted, please enter Clinical details in comments. Scheduling Instructions: Questions: My question or request is: NSTEMI, PCI. Cardiac rehab at [facility] Discharge References/Attachments MYRA INHIBITORS AND ARBS: GENERAL INFO (KENYAN) PCI (PERCUTANEOUS CORONARY INTERVENTION): POST-OP (KENYAN) HYPERTENSION: GENERAL INFO (KENYAN) Lili Ryan PA-C 02/05/2017 documented in this encounter Discharge Instructions * Discharge Instructions* Shoshana Gaspar APRN - 02/05/2017 10:31 AM EDT Anti-coagulation follow up: Continue on plavix and aspirin for at least 12 months until otherwise told by his Security Intern. Call your doctor if: Chest pain, shortness of breath, pain or swelling in legs occurs. If you have non-emergent questions between now and the time of your follow up appointments: During 8am-5pm Friday through Friday call [phone] to speak with a nurse in the cardiology clinic All other times call [phone] and ask to speak to the test data developer amusement or recreation card checker. Return to work: One week Driving: No driving for 48 hours after catheterization. Follow up Appointments: PCP Rolando Moise MD [phone] Your follow up appointment is scheduled for February 12, 2017 at 10:00 am Cardiology [facility] : Shoshana Gaspar NP Your follow up appointment is scheduled for March at 1:45 pm. Resume metformin 500 mg tablet PO two times a day tonight (02/05) for evening dose * Attachments The following attachments cannot be sent through Care Everywhere. * MYRA INHIBITORS AND ARBS: GENERAL INFO (KENYAN) * PCI (PERCUTANEOUS CORONARY INTERVENTION): POST-OP (KENYAN) * HYPERTENSION: GENERAL INFO (KENYAN) documented in this encounter Medications at Time [...] Progress Note Patient Name: Cesar Thompson Service: ROLLER PICKER / PA Responsible Attending: Bayron Oliva MD [...] 81 mg daily for 12 months per gin inspector. - continue Atorvastin, lisinopril. - Discontinue short [...] between care. SR/ST on tele with 1'AVB (TN 0.24), frequent PACs, occasional NS atrial trigem, HR 45-107. Pt sats well on RA; denied pain/discomfort and SOB throughout the shift. R radial cath site CAREER SPECIALIST, slightly ecchymotic, but soft. PLAN MOVING FORWARD: [...] Progress Note Patient Name: Cesar Thompson Service: ROLLER PICKER / PA Responsible Attending: Bayron Oliva MD [...] 81 mg daily for 12 months per gin inspector. - continue Atorvastin 40 mg daily - [...] 02/03/2017 Inpatient Attending: Bayron Oliva MD PCP: Rolando Moise MD Presenting Diagnosis/Chief Complaint: NSTEMI Active Problem List: Active Hospital Problems Diagnosis ??? NSTEMI (non-ST elevated myocardial infarction) Resolved Hospital Problems Diagnosis Date Resolved No resolved problems to display. History of Present Illness: HPI Comments: Mr. Thompson is an 81-year-old male with a past medical history of hypertension, AAA, hiperlididemia and diabetes mellitus qgg-cbsqnto-gyrtjewvk who presented to [facility] with complaint [...] go to the ED. He drove himself. [facility] did an EKG which showed sinus [...] is most likely a non-STEMI. ED called [facility] cardiology which recommended to start Plavix 300 [...] ANEURYSM, S&I performed by ACACIA BRYANT at [facility] OR ??? PRO AAA REPAIR, 1ST VESSEL, EXTENSION PROSTH 04/12/2011 @EVG-PLACEMENT, CUFF OR EXT. AORTIC OR ILIAC ANEURYSM REPAIR, GORE performed by ACACIA BRYANT at [facility] OR ??? PRO AAA REPAIR, MODULR BIFUR PROSTH, 2-DOCK 04/12/2011 @EVG, AAA, W\ MODULAR BIFURCATED PROS. W\ 2 DOCKING LIMBS performed by ACACIA BRYANT at [facility] OR ??? PRO AAA REPR, EXPOSE FEMORAL ART, GROIN INCIS 04/12/2011 @EXPOSURE, OPEN FEM. ARTERY FOR ENDOVASCULAR PROSTHESIS, GROIN-FABIANA performed by ACACIA BRYANT at [facility] OR ? ? PRO ENDOVASC REPAIR INFRARENAL AAA/DISSECTION S&I 04/12/2011 @EVG, INFRARENAL AAA OR DISSECTION, S&I performed by ACACIA BRYANT at [facility] OR Significant Family History: No [...] Take 0.4 mg by mouth daily. ??? Omer-3 Fatty Acids-Vitamin E (FISH OIL) 1,000 mg [...] of hypertension, AAA, hiperlididemia and diabetes mellitus uuj-qdkwtfw-ihgxhjhxw who presents to [facility] with complaint [...] -check A1c Provider: QUINN Ness Provider #: [id number] 02/03/2017 Cardiology staff addendum I have discussed, [...] ANEURYSM, [facility] OR ??? PRO AAA REPAIR, 1ST VESSEL, EXTENSION PROSTH 04/12/2011 @EVG-PLACEMENT, CUFF OR EXT. AORTIC OR ILIAC ANEURYSM REPAIR, GORE performed by ACACIA BRYANT at [facility] OR ??? PRO AAA REPAIR, MODULR BIFUR PROSTH, 2-DOCK 04/12/2011 @EVG, AAA, W\ MODULAR BIFURCATED PROS. W\ 2 DOCKING LIMBS performed by ACACIA BRYANT at [facility] OR ??? PRO AAA REPR, EXPOSE FEMORAL ART, GROIN INCIS 04/12/2011 @EXPOSURE, OPEN FEM. ARTERY FOR ENDOVASCULAR PROSTHESIS, GROIN-FABIANA performed by ACACIA BRYANT at [facility] OR ? ? PRO ENDOVASC REPAIR INFRARENAL AAA/DISSECTION S&I 04/12/2011 @EVG, INFRARENAL AAA OR DISSECTION, S&I performed by ACACIA BRYANT at [facility] OR Hospitalizations Within the Past [...] patient Preferred Pharmacy: [facility]?? Other: [facility] mail order pharmacy Primary Care Provider: Rolando Moise MD [phone] Patient/Caregiver Goals of Treatment: per medical team [...] of care planning. Shital Schmidt RN Pager: [phone] * Consult Note - Riya Kellogg RN [...] the outpatient cardiac rehabilitation program at [facility] was discussed. Patient agrees to a [...] 02/02/2024 12:15 PM EDT Laboratory Appointment Lab [address] [address] 02/02/2024 2:[address] [place] [address] Pascale Barboza APRN [facility] [place] [address] 02/02/2024 2:30 PM EDT Office [place] [phone] Erik Gill MD [facility] [place] [address] Scheduled Referrals Name Type Priority Associated Diagnoses Orde r Schedule Referral to Cardiac Rehab Outpatient Referral Routine Non-ST elevation myocardial infarction (NSTEMI) Ordered: 02/05/2017 documented as of this encounter Procedures Procedure Name Priority Date/Time Associated Diagnosis Comments GRADUATE RN SCAN 02/06/2017 12:00 AM EDT POCT GLUCOSE [...] 02/05/20 17 3:33 AM EDT CARDIAC ENZYMES ([facility]/CGP) Routine 02/04/2017 3:33 AM EDT CBC (WITH [...] Non-ST elevation myocardial infarction (NSTEMI) CARDIAC ENZYMES ([facility]) STAT 02/03/2017 9:00 PM EDT POCT GLUCOSE Routine 02/03/2017 8:29 PM EDT POCT GLUCOSE Routine 02/03/2017 4:54 PM EDT EKG 12-LEAD Routine 02/03/2017 4:43 PM EDT Non-ST elevation myocardial infarction (NSTEMI) CARDIAC CATHETERIZATION Routine 02/04/20 17 4:26 PM EDT CARDIAC ENZYMES ([facility]) Routine 02/03/2017 3:00 PM EDT TSH Routine 02/03/2017 3:00 PM EDT XR CHEST PA AND LATERAL Routine 02/04/20 2:35 PM EDT ECHO COMPLETE W CONTRAST Routine 02/03/2017 1:08 PM EDT Non-ST elevation myocardial infarction (NSTEMI) POCT GLUCOSE Routine 02/03/2017 11:50 AM EDT APTT STAT 02/03/2017 11:50 AM EDT POCT GLUCOSE Routine 02/03/2017 10:13 AM EDT HEMOGRAM Routine 02/03/2017 9:35 AM EDT DIFFERENTIAL, AUTOMATED Routine 02/04/20 9:35 AM EDT CARDIAC ENZYMES ([facility]) STAT 02/03/2017 9:35 AM EDT APTT STAT 02/03/2017 9:35 AM EDT PROTHROMBIN TIME STAT 02/03/2017 9:35 AM EDT CBC (WITH DIFF) Routine 02/03/2017 9:35 AM EDT PRO-BRAIN NATRIURETIC PEPTIDE STAT 02/03/2017 9:35 AM EDT BASIC METABOLIC PANEL STAT 02/03/2017 9:35 AM EDT EKG 12-LEAD STAT 02/03/2017 9:23 AM EDT Non-ST elevation myocardial infarction (NSTEMI) documented in this encounter Results * SCAN DOC: GRADUATE RN (02/06/2017 12:00 AM EDT) Anatomical Region Laterality Modality Other Narrative 02/06/2017 12:00 AM EDT Ordered by an unspecified provider. Scanning Provider MEDIA MGR SCAN EXT O RDR/RSLT * POCT Glucose (02/05/2017 7:32 AM EDT) Glucose, POC 160 65 - 199 mg/dL [facility] Comment: Supplemental ranges: <140 mg/dL before meals <180 mg/dL all other times of the day Blood specimen (specimen) 02/05/2017 7:32 AM EDT 02/05/2017 7:32 AM EDT Bayron Oliva MD POINT OF CARE TEST O RDERABLES Performing Organization Address [facility] Co de Phone Number [facility] [place] [address] * EKG 12 Lead (02/05/2017 7:26 AM EDT) Ventricular rate 54 BPM MUSE SYSTEM Atrial Rate 54 BPM MUSE SYSTEM P-R Interval 214 ms MUSE SYSTEM QRS Duration 96 ms MUSE SYSTEM Q-T Interval 486 ms MUSE SYSTEM QTC Calculated (Bezet) 460 ms MUSE SYSTEM Calculated P [place] 14 degrees MUSE SYSTEM Calculated R Roosevelt 112 degrees MUSE SYSTEM Calculated T [place] 143 degrees MUSE SYSTEM INTERPRETATION Sinus bradycardia [...] Moyer APRN ECG ORDERABLES Performing Organization Address [facility] Co de Phone Number MUSE SYSTEM * (ABNORMAL) Differential, Automated (02/05/2017 3:43 AM EDT) Neutrophil % 63.2 % [facility] Neutrophil Absolute 7.21(H) 1.70 - 6.10 x10(3)/[facility] Lymph % 20.7 % [facility] Lymphocytes Abs 2.4 0.9 - 3.2 x10(3)/[facility] Monocyte % 11.2 % [facility] Monocyte Abs 1.3(H) 0.3 - 0.9 x10(3)/[facility] Eos % 4.1 % [facility] Eosinophils Abs 0.5(H) 0.0 - 0.4 x10(3)/[facility] Basophil % 0.5 % [facility] Baso Absolute 0.1 0.0 - 0.1 x10(3)/[facility] Immature Gran % 0.30 % [facility] Comment: Immature granulocytes(IG's)percentage and absolute count will include metamyelocytes, myelocytes, and promyelocytes. Blood smears from CBCs yielding IG's will be scanned manually for concordance. If this scan disagrees with the automated IG or if promyelocytes are noted, a manual differential will be performed. Immature Gran Absolute 0.03 0.00 - 0.04 x10(3)/[facility] Blood specimen (specimen) 02/05/2017 3:43 AM EDT 02/05/2017 3:52 AM EDT Narrative Resulting Agency Comment Spec In Lab Shoshana Moyer APRN HEMATOLOGY ORDERABLE S [facility] [place] [address] * (ABNORMAL) Hemogram (02/05/2017 3:43 AM EDT) White Blood Cell 11.4(H) 4.0 - 9.5 x10(3)/[facility] Red Blood Cell 4.48(L) 4.58 - 5.54 x10(6)/[facility] Hemoglobin 14.0 13.7 - 16.5 gm/dL [facility] Hematocrit 41.1 40.5 - 48.5 % [facility] Mean Cell Volume 91.7 82.9 - 93.1 [facility] Mean Cell Hemoglobin 31.3 27.5 - 32.1 pg [facility] Mean Cell Hemoglobin Concentration 34.1 32.0 - 35.7 gm/dL [facility] Platelet 168 145 - 357 x10(3)/[facility] RDW Standard Deviation 39.9 36.0 - 45.0 [facility] RDW coefficient of variation 11.8 11.4 - 13.8 % [facility] Mean Platelet Volume 10.2 7.6 - 12.9 [facility] NRBC% auto 0.0 % [facility] NRBC Absolute 0.000 0.000 - 0.000 x10(3)/[facility] Blood specimen (specimen) 02/05/2017 3:43 AM EDT 02/05/2017 3:52 AM EDT Narrative Resulting Agency Comment Spec In Lab Shoshana Moyer APRN HEMATOLOGY ORDERABLE S [facility] [place] [address] * (ABNORMAL) BMP w/fasting Glucose (02/05/2017 3:43 AM EDT) Glucose Fasting 149(H) 65 - 99 mg/dL [facility] Comment: ?Fasting* Glucose Interpretive Criteria [...] of Diabetes Mellitus, Position Statement from the [place] [employer]. ??Diabetes Care, Volume 33, Supplement 1, May 2009 Blood Urea Nitrogen 19 10 - 20 mg/dL [facility] Creatinine 1.46 0.80 - 1.50 mg/dL [facility] Comment: Please note that the pediatric reference intervals supplied above were not validated at [facility]. Results from pediatric patients should be interpreted in conjunction to the patient's age, height and muscle mass. Sodium 140 135 - 145 mmol/L [facility] Potassium 4.3 3.5 - 5.0 mmol/L [facility] Comment: Please note: ??Patients with WBC >100,000 may have falsely elevated Potassium levels. ??For accurate Potassium quantification in these patients send serum separator tube (gold top) for subsequent determinations. ??Contact the Clinical Chemistry Laboratory if there are any questions. Chloride 104 98 - 107 mmol/L [facility] Carbon Dioxide 24 22 - 31 mmol/L [facility] Anion Gap 12 5 - 15 mmol/L [facility] Calcium 8.8 8.5 - 10.5 mg/dL [facility] Est Glomerular Filtration Rate 46(L) >=60 [facility] Comment: This estimated GFR [...] the following links into your internet browser. [email or web address] Blood specimen (specimen) 02/05/2017 3:43 AM EDT 02/05/2017 3:52 AM EDT Narrative Resulting Agency Comment Spec In Lab Shoshana Moyer APRN CHEMISTRY ORDERABLES Performing Organization Address [facility]/ZIP Co de Phone Number [facility] [place] [address] * Magnesium (02/05/2017 3:43 AM EDT) Magnesium 0.77 0.69 - 1.07 mmol/L [facility] Blood specimen (specimen) 02/05/2017 3:43 AM EDT 02/05/2017 3:52 AM EDT Narrative Resulting Agency Comment Spec In Lab Shoshana Moyer APRN CHEMISTRY ORDERABLES Performing Organization Address [facility] Co de Phone Number [facility] [place] [address] * POCT Glucose (02/04/2017 8:10 PM EDT) Glucose, POC 189 65 - 199 mg/dL [facility] Comment: Supplemental ranges: <140 mg/dL before meals <180 mg/dL all other times of the day Blood specimen (specimen) 02/04/2017 8:10 PM EDT 02/04/2017 8:10 PM EDT Bayron Oliva MD POINT OF CARE TEST O RDERABLES Performing Organization Address [facility]/ZIP Co de Phone Number [facility] [place] [address] * POCT Glucose (02/04/2017 4:56 PM EDT) Glucose, POC 114 65 - 199 mg/dL [facility] Comment: Supplemental ranges: <140 mg/dL before meals <180 mg/dL all other times of the day Blood specimen (specimen) 02/04/2017 4:56 PM EDT 02/04/2017 4:56 PM EDT Bayron Oliva MD POINT OF CARE TEST O RDJACKIE Performing Organization Address [facility] Co de Phone Number [facility] [place] [address] * POCT Glucose (02/04/2017 11:40 AM EDT) Glucose, POC 157 65 - 199 mg/dL [facility] Comment: Supplemental ranges: <140 mg/dL before meals <180 mg/dL all other times of the day Blood specimen (specimen) 02/04/2017 11:40 AM EDT 02/04/2017 11:40 AM EDT Bayron Oliva MD POINT OF CARE TEST O BHASKAR Performing Organization Address [facility] de Phone Number [facility] [place] [address] * POCT Glucose (02/04/2017 7:53 AM EDT) Glucose, POC 178 65 - 199 mg/dL [facility] Comment: Supplemental ranges: <140 mg/dL before meals <180 mg/dL all other times of the day Blood specimen (specimen) 02/04/2017 7:53 AM EDT 02/04/2017 7:53 AM EDT Bayron Oliva MD POINT OF CARE TEST O BHASKAR Performing Organization Address [facility] Co de Phone Number [facility] [place] [address] * EKG 12 Lead (02/04/2017 7:17 AM EDT) Ventricular rate 65 BPM MUSE SYSTEM Atrial Rate 65 BPM MUSE SYSTEM P-R Interval 248 ms MUSE SYSTEM QRS Duration 92 ms MUSE SYSTEM Q-T Interval 484 ms MUSE SYSTEM QTC Calculated (Bezet) 503 ms MUSE SYSTEM Calculated P Roosevelt 29 degrees MUSE SYSTEM Calculated R Roosevelt 99 degrees MUSE SYSTEM Calculated T Roosevelt 140 degrees MUSE SYSTEM INTERPRETATION Sinus rhythm [...] interpretation Confirmed by fellow MD Katherine, Truong ([id number]) on 02/04/2017 9:02:44 AM Confirmed by MD RAUL, JOAN ([id number]) on 02/04/2017 10:47:37 AM MUSE SYSTEM 02/04/2017 7:17 AM EDT 02/04/2017 10:47 AM EDT Shoshana Moyer APRN ECG ORDERABLES MUSE SYSTEM * (ABNORMAL) Cardiac Enzymes (02/04/2017 3:33 AM EDT) Troponin-T 0.95(H) 0.00 - 0.00 ng/mL [facility] Comment: The 99th percentile for Troponin T is less than 0.01 ng/mL, any detectable cTnT concentration using this assay should be considered elevated. According to the third universal definition of myocardial infarction the following criteria with a clinical presentation consistent with acute myocardial ischemia meets the diagnosis for a myocardial infarction (AR). Detection of a rise and/or fall of cTnT, with at least one value greater than the 99th percentile (> or = 0.01) and with at least one of the following ?? Symptoms of ischemia ?? New or presumed new significant QN-uzqqvvz-U wave (ST-T) changes or new left bundle [...] additional sample may be indicated. Reference: Third [place] Definition of Myocardial Infarction. Journal of the [place] College [employer] 2012;60:1581-98 Creatine Kinase 421(H) 0 - 200 unit/L [facility] Blood specimen (specimen) Venous Draw / Unknown 02/04/2017 3:33 AM EDT 02/04/2017 3:50 AM EDT Narrative Resulting Agency Comment Spec In Lab Sohshana Moyer RADHA CHEMISTRY ORDERABLES [facility] [place] [address] * (ABNORMAL) Differential, Automated (02/04/2017 3:33 AM EDT) Neutrophil % 70.9 % [facility] Neutrophil Absolute 10.32(H) 1.70 - 6.10 x10(3)/[facility] Lymph % 17.5 % [facility] Lymphocytes Abs 2.6 0.9 - 3.2 x10(3)/[facility] Monocyte % 8.8 % [facility] Monocyte Abs 1.3(H) 0.3 - 0.9 x10(3)/[facility] Eos % 2.0 % [facility] Eosinophils Abs 0.3 0.0 - 0.4 x10(3)/[facility] Basophil % 0.4 % [facility] Baso Absolute 0.1 0.0 - 0.1 x10(3)/[facility] Immature Gran % 0.40 % [facility] Comment: Immature granulocytes(IG's)percentage and absolute count will include metamyelocytes, myelocytes, and promyelocytes. Blood smears from CBCs yielding IG's will be scanned manually for concordance. If this scan disagrees with the automated IG or if promyelocytes are noted, a manual differential will be performed. Immature Gran Absolute 0.06(H) 0.00 - 0.04 x10(3)/ L [facility] Blood specimen (specimen) 02/04/2017 3:33 AM EDT 02/04/2017 3:50 AM EDT Narrative Resulting Agency Comment Spec In Lab Shoshana Moyer RADHA HEMATOLOGY ORDERABLE S Performing Organization Address City/[facility]/ZIP Co de Phone Number [facility] [place] [address] * (ABNORMAL) Hemogram (02/04/2017 3:33 AM EDT) White Blood Cell 14.6(H) 4.0 - 9.5 x10(3)/mc L [facility] Red Blood Cell 4.65 4.58 - 5.54 x10(6)/mc L [facility] Hemoglobin 14.6 13.7 - 16.5 gm/dL [facility] Hematocrit 41.8 40.5 - 48.5 % [facility] Mean Cell Volume 89.9 82.9 - 93.1 [facility] Mean Cell Hemoglobin 31.4 27.5 - 32.1 pg [facility] Mean Cell Hemoglobin Concentration 34.9 32.0 - 35.7 gm/dL [facility] Platelet 192 145 - 357 x10(3)/mc L [facility] RDW Standard Deviation 38.6 36.0 - 45.0 [facility] RDW coefficient of variation 11.8 11.4 - 13.8 % [facility] Mean Platelet Volume 10.1 7.6 - 12.9 [facility] NRBC% auto 0.0 % [facility] NRBC Absolute 0.000 0.000 - 0.000 x10(3)/ L [facility] Blood specimen (specimen) 02/04/2017 3:33 AM EDT 02/04/2017 3:50 AM EDT Narrative Resulting Agency Comment Spec In Lab Shoshana Moyer APRN HEMATOLOGY ORDERABLE S Performing Organization Address [facility] [facility]/ZIP Co de Phone Number [facility] [place] [address] * (ABNORMAL) BMP w/fasting Glucose (02/04/2017 3:33 AM EDT) [facility] Signature Glucose Fasting 138(H) 65 - 99 mg/dL [facility] Comment: ?Fasting* Glucose Interpretive Criteria [...] of Diabetes Mellitus, Position Statement from the [place] [employer]. ??Diabetes Care, Volume 33, Supplement 1, May 2009 Blood Urea Nitrogen 15 10 - 20 mg/dL [facility] Creatinine 1.34 0.80 - 1.50 mg/dL [facility] Comment: Please note that the pediatric reference intervals supplied above were not validated at [facility]. Results from pediatric patients should be interpreted in conjunction to the patient's age, height and muscle mass. Sodium 139 135 - 145 mmol/L [facility] Potassium 4.2 3.5 - 5.0 mmol/L [facility] Comment: Please note: ??Patients with WBC >100,000 may have falsely elevated Potassium levels. ??For accurate Potassium quantification in these patients send serum separator tube (gold top) for subsequent determinations. ??Contact the Clinical Chemistry Laboratory if there are any questions. Chloride 102 98 - 107 mmol/L [facility] Carbon Dioxide 23 22 - 31 mmol/L [facility] Anion Gap 14 5 - 15 mmol/L [facility] Calcium 8.7 8.5 - 10.5 mg/dL [facility] Est Glomerular Filtration Rate 51(L) >=60 [facility] Comment: This estimated GFR [...] the following links into your internet browser. [email or web address] Blood specimen (specimen) 02/04/2017 3:33 AM EDT 02/04/2017 3:50 AM EDT Narrative Resulting Agency Comment Spec In Lab Shoshana J King GERRYN CHEMISTRY ORDERABLES Performing Organization Address [facility] Co de Phone Number [facility] [place] [address] * Magnesium (02/04/2017 3:33 AM EDT) Magnesium 0.77 0.69 - 1.07 mmol/L [facility] Blood specimen (specimen) 02/04/2017 3:33 AM EDT 02/04/2017 3:50 AM EDT Narrative Resulting Agency Comment Spec In Lab Shoshana Moyer [employer] CHEMISTRY ORDERABLES Performing Organization Address [facility] de Phone Number [facility] [place] [address] * (ABNORMAL) Hepatic Function Panel (02/04/2017 3:33 AM EDT) Protein, Total 6.1 6.1 - 8.0 gm/dL [facility] Albumin 3.7 3.2 - 5.2 gm/dL [facility] Aspartate Aminotransferase 57(H) 0 - 39 unit/L [facility] Alanine Aminotransferase 34 0 - 55 unit/L [facility] Alkaline Phosphatase 71 40 - 120 unit/L [facility] Bilirubin, Total 0.7 0.2 - 1.3 mg/dL [facility] Bilirubin, Direct 0.1 0.0 - 0.3 mg/dL [facility] Blood specimen (specimen) 02/04/2017 3:33 AM EDT 02/04/2017 3:50 AM EDT Narrative Resulting Agency Comment Spec In Lab Shoshana Moyer [employer] CHEMISTRY ORDERABLES Performing Organization Address [facility] Co de Phone Number [facility] [place] [address] * Triglyceride (02/04/2017 3:33 AM EDT) Triglyceride 171 <=199 mg/dL [facility] Blood specimen (specimen) 02/04/2017 3:33 AM EDT 02/04/2017 3:50 AM EDT Narrative Resulting Agency Comment Spec In Lab Shoshana Moyer [employer] CHEMISTRY ORDERABLES Performing Organization Address [facility] Co de Phone Number [facility] [place] [address] * (ABNORMAL) HDL/Cholesterol Profile (02/04/2017 3:33 AM EDT) Cholesterol, Total 106 <=239 mg/dL [facility] HDL Cholesterol 37(L) >=40 mg/dL [facility] Cholesterol/HDL Ratio 2.9 ratio [facility] Chol/HDL Interpretation See Note [facility] Comment: Lipid management should be guided by a patient? s ASCVD risk, goals and preferences. ACC/AHA Guidelines recommend high intensity statin if clinical ASCVD or LDL greater than or equal to 190 mg/dL. http://tinyurl.com/FEL-BCN-Tpldpckdt Measure LDL if Total Cholesterol minus HDL Cholesterol is greater than 220 mg/dL. Adults aged 40-75 with LDL 70-189 mg/dL should have their 10 year ASCVD risk estimated with the ACC/AHA ASCVD risk manager access http://tools.acc.org/OBHQH-Pkcc-Vihftjnfp/ Statin should be discussed if risk greater [...] Comment Spec In Lab Shoshana Roach João [employer] CHEMISTRY ORDERABLES Performing Organization Address [facility]/ZIP Co de Phone Number [facility] [place] [address] * LDL Cholesterol, Direct (02/04/2017 3:33 AM EDT) LDL Cholesterol, Direct 47 <=190 mg/dL [facility] Blood specimen (specimen) 02/04/2017 3:33 AM EDT 02/04/2017 3:50 AM EDT Narrative Resulting Agency Comment Spec In Lab Shoshana Roach I.SystemsN CHEMISTRY ORDERABLES Performing Organization Address [facility] Co de Phone Number [facility] [place] [address] * (ABNORMAL) Hemoglobin A1c (02/04/2017 3:33 AM EDT) Hemoglobin A1c 6.2(H) 4.3 - 5.6 % [facility] Comment: Reference Range: 4.3 - [...] Mellitus, Diabetes Care 2013; 36: Suppl. 1, R40-31 Estimated Average Glucose See note mg/dL [facility] Comment: Estimated Average Glucose not [...] into estimated average glucose values. ??Diabetes Care 2008:31(8):1546-2843. Blood specimen (specimen) 02/04/2017 3:33 AM EDT 02/04/2017 3:50 AM EDT Narrative Resulting Agency Comment Spec In Lab Shoshana Moyer APRN CHEMISTRY ORDERABLES [facility] [place] [address] * EKG 12 Lead (02/03/2017 9:16 PM EDT) Ventricular rate 77 BPM MUSE SYSTEM Atrial Rate 77 BPM MUSE SYSTEM P-R Interval 222 ms MUSE SYSTEM QRS Duration 90 ms MUSE SYSTEM Q-T Interval 458 ms MUSE SYSTEM QTC Calculated (Bezet) 518 ms MUSE SYSTEM Calculated P Roosevelt 29 degrees MUSE SYSTEM Calculated R Roosevelt 98 degrees MUSE SYSTEM Calculated T Roosevelt 118 degrees MUSE SYSTEM INTERPRETATION Sinus rhythm [...] Oliva MD ECG ORDERABLES MUSE SYSTEM * (ABNORMAL) Cardiac Enzymes (02/03/2017 9:00 PM EDT) Troponin-T 0.71(H) 0.00 - 0.00 ng/mL [facility] Comment: The 99th percentile for Troponin T is less than 0.01 ng/mL, any detectable cTnT concentration using this assay should be considered elevated. According to the third universal definition of myocardial infarction the following criteria with a clinical presentation consistent with acute myocardial ischemia meets the diagnosis for a myocardial infarction (AR). Detection of a rise and/or fall of cTnT, with at least one value greater than the 99th percentile (> or = 0.01) and with at least one of the following ?? Symptoms of ischemia ?? New or presumed new significant SP-wpvjkgt-W wave (ST-T) changes or new left bundle [...] additional sample may be indicated. Reference: Third [place] Definition of Myocardial Infarction. Journal of the [place] College [employer] 2012;60:1581-98 Creatine Kinase 329(H) 0 - 200 unit/L [facility] Blood specimen (specimen) 02/03/2017 9:00 PM EDT 02/03/2017 9:05 PM EDT Narrative Resulting Agency Comment Spec In Lab Shoshana Roach King RADHA CHEMISTRY ORDERABLES Performing Organization Address [facility] Co de Phone Number [facility] [place] [address] * POCT Glucose (02/03/2017 8:29 PM EDT) Glucose, POC 197 65 - 199 mg/dL [facility] Comment: Supplemental ranges: <140 mg/dL before meals <180 mg/dL all other times of the day Blood specimen (specimen) 02/03/2017 8:29 PM EDT 02/03/2017 8:29 PM EDT Bayron Oliva MD POINT OF CARE TEST O RDERAJAZZY Performing Organization Address [facility] de Phone Number [facility] [place] [address] * POCT Glucose (02/03/2017 4:54 PM EDT) Glucose, POC 144 65 - 199 mg/dL [facility] Comment: Supplemental ranges: <140 mg/dL before meals <180 mg/dL all other times of the day Blood specimen (specimen) 02/03/2017 4:54 PM EDT 02/03/2017 4:54 PM EDT Bayron Oliva MD POINT OF CARE TEST O BHASKAR Performing Organization Address [facility] Co de Phone Number [facility] [place] [address] * EKG 12 Lead (02/03/2017 4:43 PM EDT) Ventricular rate 81 BPM MUSE SYSTEM Atrial Rate 81 BPM MUSE SYSTEM P-R Interval 226 ms MUSE SYSTEM QRS Duration 96 ms MUSE SYSTEM Q-T Interval 420 ms MUSE SYSTEM QTC Calculated (Bezet) 487 ms MUSE SYSTEM Calculated P Roosevelt 30 degrees MUSE SYSTEM Calculated R Roosevelt -20 degrees MUSE SYSTEM Calculated T Roosevelt -19 degrees MUSE SYSTEM INTERPRETATION Sinus rhythm with 1st degree A-V block Low voltage QRS Inferior infarct (cited on or before 03-FEB-2017 ) ST and ??T wave abnormality , consider anterior ischemia Abnormal ECG When compared with ECG of 03-FEB-2017 09:23, ST now elevated V2-3 Confirmed by MD GRACE JOHN ([id number]) on 02/04/2017 9:17:15 PM MUSE SYSTEM 02/03/2017 4:43 PM EDT 02/04/2017 9:17 PM EDT Bayron Oliva MD ECG ORDERABLES MUSE SYSTEM * CARDIAC CATHETERIZATION (02/03/2017 4:26 PM EDT) Anatomical Region Laterality Modality Other Narrative 02/03/2017 4:43 PM EDT ?[facility] ? Cardiac Catheterization/Intervention Report ? Patient Name: Thompson, Gilbert D. ? Procedure Date: 02/03/2017 ? A #: [id number] ? Primary Physician: Fina, Lydia ? Case #: [id number] ? File Name: [id number] ? Catheterization Order Number: [id number] ? [facility] ? Final Report [place], [place] ? Patient Name: ? Cesar Hatch. Jay ?ID#: ?[id number] ? : ?1935 ? Procedure Date: ? February 03, 2017 ?Case #: ? [id number] ? Room: ? 6 ? Case Physician: ? Lydia Harden M.D. ? Start: ?15:39 ?Fellow: ? Madhu Forman M.D. ? Admission: ??02/03/2017 ? Discharge: ??02/05/2017 ? Referring Physician: ??Rolando Moise M.D. ? Procedures: ?* Coronary Angiography [...] patient presented with: non-STEMI (w/i 7 days). [place] ?Cardiovascular Society angina class was IV. This [...] dose administered prior to arrival in the sawyer cork slabs. ?Recommend continuing clopidogrel 75 mg PO daily [...] Procedure Note Lydia Harden MD - 08/08/2017 [facility] Cardiac Catheterization/Intervention Report Patient Name: Cesar Thompson Procedure Date: 02/03/2017 A #: [id number] Primary Physician: Lydia Harden Case #: [id number] File Name: [id number] Catheterization Order Number: [id number] [facility] FinalReport [place], [place] Patient Name: Cesar Thompson ID#:[id number] :1935 Procedure Date: February 03, 2017 Case #: [id number] Room: 6 Case Physician: Lydia Harden M.D. Start: 15:39 Fellow: Madhu Forman M.D. Admission:02/03/2017 Discharge:02/05/2017 Referring Physician: Rolando Moise M.D. Procedures: * Coronary Angiography * [...] patient presented with: non-STEMI (w/i 7 days). [place] [employer] angina class was IV. This [...] The lesion was predilated with a 2.50mm [id number] MM balloon with a maximum inflation pressure [...] dose administered prior to arrival in the sawyer cork slabs. Recommend continuing clopidogrel 75 mg PO daily [...] EDT) Troponin-T 0.48(H) 0.00 - 0.00 ng/mL [facility] Comment: The 99th percentile for Troponin T is less than 0.01 ng/mL, any detectable cTnT concentration using this assay should be considered elevated. According to the third universal definition of myocardial infarction the following criteria with a clinical presentation consistent with acute myocardial ischemia meets the diagnosis for a myocardial infarction (AR). Detection of a rise and/or fall of cTnT, with at least one value greater than the 99th percentile (> or = 0.01) and with at least one of the following ?? Symptoms of ischemia ?? New or presumed new significant YU-heplsny-T wave (ST-T) changes or new left bundle [...] additional sample may be indicated. Reference: Third [place] Definition of Myocardial Infarction. Journal of the [place] [employer] 2012;60:1581-98 Creatine Kinase 305(H) 0 - 200 unit/L [facility] Blood specimen (specimen) 02/03/2017 3:00 PM EDT 02/03/2017 3:22 PM EDT Narrative Resulting Agency Comment Spec In Lab Shoshana Moyer APRN CHEMISTRY ORDERABLES [facility] [place] [address] * TSH (02/03/2017 3:00 PM EDT) Thyroid Stimulating Hormone 1.18 0.27 - 4.20 mlU/ML [facility] Blood specimen (specimen) 02/03/2017 3:00 PM EDT 02/03/2017 3:22 PM EDT Narrative Resulting Agency Comment Spec In Lab Inder Medley MD CHEMISTRY ORDERABLES [facility] [place] [address] * XR Chest PA & Lateral (Generic) [...] residents interpretationand agree with the findings, Johan Abhi at 02/03/2017 3:15 PM Inder Medley MD IMG DX ORDERABLES * ECHO COMPLETE W CONTRAST (02/03/2017 1:08 PM EDT) EF 35 HEARTLAB SYSTEM Anatomical Region Laterality Modality Other 02/03/2017 Narrative 02/03/2017 1:43 PM EDT Procedure: ?Transthoracic Echocardiogram Patient: ?JAY Hatch ?(Age): 1935(81y) Med Rec#: ? [id number] ?Sex: ?M ? Site Loc: ? [facility] ?Ht / Wt: ??175(cm)/85(kg) Pt. Loc: ?Adult Floor ? BSA: ?2.01 Study Date: ?? 02/03/2017 ?Pt. Type: Inpatient Tape: ? Referring: GRANTROBERTJ Referring: Inder Medley Reading: Mason Beth ([id number]) Die Trouble Shooter: Sonia Marcial Diagnosis: *ICD-10-PCS Non-ST elevation (NSTEMI) [...] ? Mid-Inferior ?Hypokinetic ? Mid-Inferoseptal ?Akinetic ? Roosevelt-Septal ? Akinetic ? Roosevelt-Anterior ? Akinetic ? Roosevelt-Lateral ?Akinetic ? Roosevelt-Inferior ? Akinetic ? Roosevelt-Tip ?Akinetic ? This report has been electronically signed by: Mason Beth MD ? 02/03/2017 13:42:39 Images reviewed and interpretation verified [facility] Procedure Note Mason Beth MD - 02/03/2017 Procedure: Transthoracic Echocardiogram Patient: JAY Hatch DOB(Age): 1935(81y) Med Rec#: [id number] Sex: M Site Loc: [facility] Ht / Wt: 175(cm)/85(kg) Pt. Loc: Adult Floor BSA: 2.01 Study Date: 02/03/2017 Pt. Type: Inpatient Tape: Referring: GRANTROBERTDoc Referring: Inder Medley Reading: Mason Beth ([id number]) Die Trouble Shooter: Sonia Marcial Diagnosis: *ICD-10-PCS Non-ST elevation (NSTEMI) [...] Hypokinetic Mid-Posterolateral Hypokinetic Mid-Inferior Hypokinetic Mid-Inferoseptal Akinetic Roosevelt-Septal Akinetic Roosevelt-Anterior Akinetic Roosevelt-Lateral Akinetic Roosevelt-Inferior Akinetic Roosevelt-Tip Akinetic This report has been electronically signed by: Mason Beth MD 02/03/2017 13:42:39 Images reviewed and interpretation verified [facility] Inder Medley MD ECHO ORDERABLES * POCT Glucose (02/03/2017 11:50 AM EDT) Glucose, POC 138 65 - 199 mg/dL [facility] Comment: Supplemental ranges: <140 mg/dL before meals <180 mg/dL all other times of the day Blood specimen (specimen) 02/03/2017 11:50 AM EDT 02/03/2017 11:50 AM EDT Bayron Oliva MD POINT OF CARE TEST Constance MURO Performing Organization Address [facility] Co de Phone Number [facility] [place] [address] * (ABNORMAL) APTT (02/03/2017 11:50 AM EDT) Partial Thromboplastin Time 54(H) 25 - 35 sec [facility] Comment: The recommended therapeutic range for full dose, unfractionated heparin at [facility] is 80 ? 114 seconds. The use of the anti-Xa (heparin) level rather than the PTT is recommended for monitoring anticoagulation intensity in critically ill patients receiving unfractionated heparin by continuous IV infusion. Blood specimen (specimen) 02/03/2017 11:50 AM EDT 02/03/2017 12:05 PM EDT Narrative Resulting Agency Comment Spec In Lab Shoshana Moyer APRN HEMATOLOGY ORDERABLE S Performing Organization Address [facility] Co de Phone Number [facility] [place] [address] * POCT Glucose (02/03/2017 10:13 AM EDT) Glucose, POC 148 65 - 199 mg/dL [facility] Comment: Supplemental ranges: <140 mg/dL before meals <180 mg/dL all other times of the day Blood specimen (specimen) 02/03/2017 10:13 AM EDT 02/03/2017 10:13 AM EDT Inder Medley MD POINT OF CARE TEST O RDERABLES Performing Organization Address City/[facility]/ZIP Co de Phone Number [facility] [place] [address] * (ABNORMAL) Differential, Automated (02/03/2017 9:35 AM EDT) Neutrophil % 68.5 % [facility] Neutrophil Absolute 6.52(H) 1.70 - 6.10 x10(3)/mc L [facility] Lymph % 20.1 % [facility] Lymphocytes Abs 1.9 0.9 - 3.2 x10(3)/mc L [facility] Monocyte % 7.5 % [facility] Monocyte Abs 0.7 0.3 - 0.9 x10(3)/mc L [facility] Eos % 2.9 % [facility] Eosinophils Abs 0.3 0.0 - 0.4 x10(3)/[facility] LAB[facility]ATORY Basophil % 0.7 % [facility] Baso Absolute 0.1 0.0 - 0.1 x10(3)/mc L [facility] Immature Gran % 0.30 % [facility] Comment: Immature granulocytes(IG's)percentage and absolute count will include metamyelocytes, myelocytes, and promyelocytes. Blood smears from CBCs yielding IG's will be scanned manually for concordance. If this scan disagrees with the automated IG or if promyelocytes are noted, a manual differential will be performed. Immature Gran Absolute 0.03 0.00 - 0.04 x10(3)/mc L [facility] Blood specimen (specimen) 02/03/2017 9:35 AM EDT 02/03/2017 9:40 AM EDT Narrative Resulting Agency Comment Spec In Lab Shoshana Moyer APRN HEMATOLOGY ORDERABLE S Performing Organization Address City/[facility]/ZIP Co de Phone Number [facility] [place] [address] * Hemogram (02/03/2017 9:35 AM EDT) White Blood Cell 9.5 4.0 - 9.5 x10(3)/[facility] LABORATORY Red Blood Cell 4.99 4.58 - 5.54 x10(6)/[facility]ORY Hemoglobin 15.3 13.7 - 16.5 gm/dL [facility] Hematocrit 44.5 40.5 - 48.5 % [facility] Mean Cell Volume 89.2 82.9 - 93.1 fL [facility] Mean Cell Hemoglobin 30.7 27.5 - 32.1 pg [facility] Mean Cell Hemoglobin Concentration 34.4 32.0 - 35.7 gm/dL [facility] Platelet 204 145 - 357 x10(3)/[facility] LABORATORY RDW Standard Deviation 37.7 36.0 - 45.0 [facility]ATORY RDW coefficient of variation 11.8 11.4 - 13.8 % [facility] Mean Platelet Volume 10.3 7.6 - 12.9 [facility] LAB[facility]ATORY NRBC% auto 0.0 % [facility] NRBC Absolute 0.000 0.000 - 0.000 x10(3)/[facility] Blood specimen (specimen) 02/03/2017 9:35 AM EDT 02/03/2017 9:40 AM EDT Narrative Resulting Agency Comment Spec In Lab Shoshana Moyer APRN HEMATOLOGY ORDERABLE S [facility] [place] [address] * (ABNORMAL) Cardiac Enzymes (02/03/2017 9:35 AM EDT) [facility] Troponin-T 0.31(H) 0.00 - 0.00 ng/mL [facility] Comment: The 99th percentile for Troponin T is less than 0.01 ng/mL, any detectable cTnT concentration using this assay should be considered elevated. According to the third universal definition of myocardial infarction the following criteria with a clinical presentation consistent with acute myocardial ischemia meets the diagnosis for a myocardial infarction (AR). Detection of a rise and/or fall of cTnT, with at least one value greater than the 99th percentile (> or = 0.01) and with at least one of the following ?? Symptoms of ischemia ?? New or presumed new significant LD-hfqkfcz-M wave (ST-T) changes or new left bundle [...] additional sample may be indicated. Reference: Third [place] Definition of Myocardial Infarction. Journal of the [place] College [employer]iology 2012;60:1581-98 Creatine Kinase 264(H) 0 - 200 unit/L [facility] Blood specimen (specimen) 02/03/2017 9:35 AM EDT 02/03/2017 9:40 AM EDT Narrative Resulting Agency Comment Spec In Lab Shoshana Moyer APRN CHEMISTRY ORDERABLES Performing Organization Address [facility]/ZIP Co de Phone Number [facility] [place] [address] * (ABNORMAL) pro-Brain Natriuretic Peptide (02/03/2017 9:35 AM EDT) NT-proBNP 1,411(H) <=450 pg/mL [facility] Blood specimen (specimen) 02/03/2017 9:35 AM EDT 02/03/2017 9:40 AM EDT Narrative Resulting Agency Comment Spec In Lab Shoshana Moyer APRN CHEMISTRY ORDERABLES Performing Organization Address City/[facility]/ZIP Co de Phone Number [facility] [place] [address] * (ABNORMAL) APTT (02/03/2017 9:35 AM EDT) Partial Thromboplastin Time 64(H) 25 - 35 sec [facility] Comment: The recommended therapeutic range for full dose, unfractionated heparin at [facility] is 80 ? 114 seconds. The use of the anti-Xa (heparin) level rather than the PTT is recommended for monitoring anticoagulation intensity in critically ill patients receiving unfractionated heparin by continuous IV infusion. Blood specimen (specimen) 02/03/2017 9:35 AM EDT 02/03/2017 9:40 AM EDT Narrative Resulting Agency Comment Spec In Lab Shoshana Moyer [facility] HEMATOLOGY ORDERABLE S Performing Organization Address [facility] Co de Phone Number [facility] [place] [address] * Prothrombin Time (02/03/2017 9:35 AM EDT) Prothrombin Time 14.1 12.0 - 15.0 sec [facility] Comment: An INR <2.0 indicates [...] International Normalization Ratio 1.0 0.9 - 1.1 [facility] Blood specimen (specimen) 02/03/2017 9:35 AM EDT 02/03/2017 9:40 AM EDT Narrative Resulting Agency Comment Spec In Lab Shoshana Roach [facility] HEMATOLOGY ORDERABLE S Performing Organization Address [facility] Co de Phone Number [facility] [place] [address] * (ABNORMAL) Basic Metabolic Panel (non-fasting) (02/03/2017 9:35 AM EDT) Glucose 159 65 - 199 mg/dL [facility] Comment:Diabetes: >=200 mg/d L plus symptoms Blood Urea Nitrogen 15 10 - 20 mg/dL [facility] Creatinine 1.19 0.80 - 1.50 mg/dL [facility] Comment: Please note that the pediatric reference intervals supplied above were not validated at [facility]. Results from pediatric patients should be interpreted in conjunction to the patient's age, height and muscle mass. Sodium 140 135 - 145 mmol/L [facility] Potassium 4.0 3.5 - 5.0 mmol/L [facility] Comment: Please note: ??Patients with WBC >100,000 may have falsely elevated Potassium levels. ??For accurate Potassium quantification in these patients send serum separator tube (gold top) for subsequent determinations. ??Contact the Clinical Chemistry Laboratory if there are any questions. Chloride 103 98 - 107 mmol/L [facility] Carbon Dioxide 22 22 - 31 mmol/L [facility] Anion Gap 15 5 - 15 mmol/L [facility] Calcium 9.3 8.5 - 10.5 mg/dL [facility] Est Glomerular Filtration Rate 59(L) >=60 [facility] Comment: This estimated GFR [...] the following links into your internet browser. [email or web address] Blood specimen (specimen) 02/03/2017 9:35 AM EDT 02/03/2017 9:40 AM EDT Narrative Resulting Agency Comment Spec In Lab Shoshana Moyer APRN CHEMISTRY ORDERABLES [facility] [place] [address] * EKG 12 Lead (02/03/2017 9:23 AM EDT) Ventricular rate 71 BPM MUSE SYSTEM Atrial Rate 71 BPM MUSE SYSTEM P-R Interval 236 ms MUSE SYSTEM QRS Duration 96 ms MUSE SYSTEM Q-T Interval 448 ms MUSE SYSTEM QTC Calculated (Bezet) 486 ms MUSE SYSTEM Calculated P [place] -5 degrees MUSE SYSTEM Calculated R [place] -17 degrees MUSE SYSTEM Calculated T [place] 79 degrees MUSE SYSTEM INTERPRETATION Sinus rhythm with 1st degree A-V block Inferior infarct , age undetermined T wave abnormality, consider anterolateral ischemia Abnormal ECG When compared with ECG of 12-APR-2011 07:31, T wave inversion now evident in Anterolateral leads Confirmed by MD Elsie, Rosendo Walker ([id number]) on 02/04/2017 9:15:41 AM MUSE SYSTEM 02/03/2017 [...] Fri02/04/17 at 0900, Until Discontinued, Routine 1514 (MAR Hold - Provider: Admin Adt - Reason: Transfer to a Procedural area)1836 (MAR Unhold - Provider: Admin Adt) 0807 (Given - Provider: Angie Escobar RN) 0808 (Given - Provider: Angie Escobar RN) atorvastatin (LIPITOR) tablet 40 mg 40 mg, Oral, EVERY EVENING, First dose on Fri02/03/17 at 1700, Until Discontinued, Routine 1514 (MAR Hold - Provider: Admin Adt - Reason: Transfer to a Procedural area)1700 (Automatically Held - Provider: Admin Adt)1836 (MAR Unhold - Provider: Admin Adt) 1718 (Given - Provider: Angie Escobar RN) clopidogrel (PLAVIX) tablet 75 mg 75 mg, Oral, DAILY, First dose on Fri02/04/17 at 0900, Until Discontinued, Routine 1514 (MAR Hold - Provider: Admin Adt - Reason: [...] RN - Reason: Order parameters not met)1514 (MAR Hold - Provider: Admin Adt - Reason: Transfer to a Procedural area)1630 (Automatically Held - Provider: Admin Adt)1836 (JUL Unhold - Provider: Admin Adt) 0807 (Given - Provider: Angie Escobar RN)1237 (Given - Provider: Angie Escobar RN)1630 (Not Given - Provider: Angie Escobar RN - Reason: Order parameters not met) 0807 (Given - Provider: Angie Escobar RN)1130 (Due - Provider: Admin Nathaly) lisinopril (PRINIVIL;ZESTRIL) tablet 20 mg 20 mg, [...] Escobar RN)2304 (Given - Provider: Anne-Marie Mullins, RN) 0544 (Given - Provider: Anne-Marie Mullins, MARILYN) morphine 2 mg/mL carpuject 2 mg (COMPLETED) 2 mg, Intravenous, ONCE, 1 dose, On Fri02/03/17 at 2015, Routine 2010 (Given - Provider: Lexi Mancuso, MARILYN) tamsulosin (FLOMAX) ER capsule 0.4 mg 0.4 mg, Oral, DAILY, First dose on Fri02/03/17 at 1145, Until Discontinued, DO NOT CRUSH OR OPEN, Routine 1402 (Given - Provider: Sydnie Lagunas RN)1514 (JUL [...] UA) 0850 (New Bag - Provider: Sydnie Lagunas, MARILYN)1251 (Rate/Dose Change - Provider: Sydnie Lagunas RN)1500 [...] duration of the active insulin., Routine 1514 ([facility] Hold - Provider: Admin Adt - Reason: Transfer to a Procedural area)1836 ([facility] Unhold - Provider: Admin Adt) heparin (porcine) [...] 1252 (Given - Provider: Sydnie Lagunas RN)1514 ([facility] Hold - Provider: Admin Adt - Reason: Transfer to a Procedural area)1623 ([facility] Unhold - Provider: Admin Adt) heparin (porcine) [...] 2113, Until Fri02/05/17 at 1344, Pain, Routine 212 (Given - Provider: Lexi Mancuso, MARILYN) niCARdipine (CARDENE) in sodium chloride 0.9% injection (CANCELED) ONCE PRN, Starting on Fri02/03/17 at 1602, Until Fri02/03/17 at 1836, Intra-Operative (Intra-Procedure), Routine 160 (Given - Provider: Madhu Forman MD)161 (Given [...] Routine documented in this encounter Care Teams Mental Measurements Teacher Relationship Specialty Start Date End Date Rolando Moise MD PCP - General Family Medicine 09/16/16 documented as of this encounter
--- OUTSIDE RECORDS SUMMARY | 2024-01-25 13:42 | XMS_ITS | Encounter Summary ---
[facility] Address [facility] [place] [address] Care Team Providers Care Chair Upholsterer Name Role Phone Rolando Moise MD Primary Care Provider [phone] Reason for Visit * Reason Comments Follow-up Encounter Details Date Type Department Care Team (Late st Contact Info) Description 03/10/2017 2:00 PM EST Office Visit Cardiology at [address] [address] Shoshana Moyer APRN [facility] [place] [address] Coronary artery disease, angina presence unspecified, unspecified vessel or lesion type, unspecified whether [place] or transplanted heart Social History Tobacco Use [...] from the original note were not included. [facility] [place] [address] General Cardiology Follow Up Subjective: Patient ID: [...] 02/02/2024 12:15 PM EDT Laboratory Appointment Lab [address] [address] 02/02/2024 2:[address] [place] [address] Pascale Barboza APRN [facility] [place] [address] 02/02/2024 2:30 PM EDT Office Visit [place] [address] Erik Gill MD [facility] [place] [address] documented as of this encounter Procedures Procedure Name Priority Date/Time Associated Diagnosis Comments EKG 12-LEAD Routine 03/10/2017 2:33 PM EST Coronary artery disease, angina presence unspecified, unspecified vessel or lesion type, unspecified whether [place] or transplanted heart documented in this encounter Results * EKG 12 Lead (03/10/2017 2:33 PM EST) Ventricular rate 71 BPM MUSE SYSTEM Atrial Rate 71 BPM MUSE SYSTEM P-R Interval 226 ms MUSE SYSTEM QRS Duration 92 ms MUSE SYSTEM Q-T Interval 414 ms MUSE SYSTEM QTC Calculated (Bezet) 449 ms MUSE SYSTEM Calculated P [place] 19 degrees MUSE SYSTEM Calculated R [place] 134 degrees MUSE SYSTEM Calculated T [place] 135 degrees MUSE SYSTEM INTERPRETATION Sinus rhythm [...] unspecified vessel or lesion type, unspecified whether [place] or transplanted heart documented in this encounter Care Teams Chair Upholsterer Relationship Specialty Start Date End Date Rolando Moise MD PCP - General Family Medicine 09/16/16 documented as of this encounter
--- OUTSIDE RECORDS SUMMARY | 2024-01-25 13:42 | XMS_ITS | Encounter Summary ---
Author Organization [facility] [place] [address] Care Team Providers Care Cottrell Operator Name Role Phone Rolando Moise MD Primary Care Provider [phone] Encounter Details Date Type Department Care Team (Late st Contact Info) Description 04/21/2019 Orders [place] [address] Rachel Arenas, SIGNAL INTEGRITY ENGINEER Abdominal aortic aneurysm (AAA) without rupture Social [...] 12:15 PM EDT Laboratory Appointment Lab [address] [place] [address] 02/02/2024 2:[address] [place] [address] Pascale Barboza, RADHA [facility] [place] [address] 02/02/2024 2:30 PM EDT Office Visit [place] [address] Erik Gill MD [facility] [place] [address] documented as of this encounter Visit Diagnoses Diagnosis Abdominal aortic aneurysm (AAA) without rupture documented in this encounter Care Teams Cottrell Operator Relationship Specialty Start Date End Date Rolando Moise MD PCP - General Family Medicine 09/16/16 documented as of this encounter
--- OUTSIDE RECORDS SUMMARY | 2024-01-25 13:43 | XMS_ITS | Encounter Summary ---
Author Organization [facility] Address [facility] [place] [address] Care Team Providers Care Supervisor Housecleaner Name Role Phone Rolando Zacarias MD Primary Care Provider [phone] Reason for Visit * Reason Comments Aneurysm (Aortic) Encounter Details Date Type Department Care Team (Late st Contact Info) Description 08/11/2014 10:30 AM EDT Follow-[place] [address] Steven Borges MD [facility] [place] [address] AAA (abdominal aortic aneurysm) Discharge Disposition: Home [...] of aortic aneurysm, using Cook Zenith Flex [id number] via right; ipsilateral extension with TFLE 16-56; [...] 12:15 PM EDT Laboratory Appointment Lab [address] [place] [address] 02/02/2024 2:[address] [place] [address] Pascale Barboza APRN [facility] [place] [address] 02/02/2024 2:30 PM EDT Office [place] [address] Erik Gill MD [facility] [place] [address] documented as of this encounter Procedures Procedure Name Priority Date/Time Associated Diagnosis Comments CREATININE Routine 08/11/2014 8:52 AM EDT AAA (abdominal aortic aneurysm) documented in this encounter Results * (ABNORMAL) Creatinine (08/11/2014 8:52 AM EDT) Creatinine 1.38 0.80 - 1.50 mg/dL [facility] Comment: Please note that the pediatric reference intervals supplied above were not validated [place] [facility]. Results from pediatric patients should be interpreted in conjunction to the patient's age, height and muscle mass. Est Glomerular Filtration Rate 50(L) >=60 [facility] Comment: This estimated GFR (eGFR) value was [...] the following links into your internet browser. [email or web address] Blood specimen (specimen) 08/11/2014 8:52 AM EDT 08/11/2014 9:00 AM EDT Narrative Resulting Agency Comment Spec In Lab Steven Borges MD CHEMISTRY ORDERABLES [facility] documented in this encounter Visit Diagnoses Diagnosis AAA (abdominal aortic aneurysm) Abdominal aneurysm without mention of rupture documented in this encounter Care Teams Supervisor Housecleaner Relationship Specialty Start Date End Date Rolando Zacarias MD PCP - General 04/12/11 09/15/16 documented as of this encounter
--- OUTSIDE RECORDS SUMMARY | 2024-01-25 13:43 | XMS_ITS | Encounter Summary ---
Author Organization [facility] Address [facility] [place] [address] Care Team Providers Care Folder Machine Adjuster Name Role Phone Rolando Zacarias MD Primary Care Provider [phone] Encounter Details Date Type Department Care Team (Latest Contact Info) Description 10/06/2012 12:00 PM EDT - 10/06/2012 11:59 PM EDT Hospital [place] [address] AAA (abdominal aortic aneurysm) Social History Tobacco [...] Sig Dispensed Refills Start Date End Date [place]-3 Fatty Acids-Vitamin E (FISH OIL) 1,000 mg [...] CT Scan on 6-4 @ 12pm Per [facility] Policy it is important that you stop [...] of your body. Thank You, [facility] [place] Scan Dept documented in this encounter Plan of Treatment Upcoming Encounters Date Type Department Care Team (Late st Contact Info) Description 02/02/2024 12:15 PM EDT Laboratory Appointment Lab [address] [place] [address] 02/02/2024 2:[address] [place] [address] Pascale Barboza APRN [facility] DR [place] [address] 02/02/2024 2:30 PM EDT Office Visit [place] [address] Erik Gill MD [facility] DR [place] [address] documented as of this encounter Procedures Procedure [...] artery remains patent. 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 ??The [place] abdominal aortic aneurysm sac has decreased in [...] artery remains patent. Maximum caliber of the [place] abdominal aortic aneurysm sac has decreased from [...] due theinflow from an ileolumbar artery. The [place] abdominal aortic aneurysm sac has decreased in [...] mg documented in this encounter Care Teams Folder Machine Adjuster Relationship Specialty Start Date End Date Rolando Zacarias MD PCP - General 04/12/11 09/15/16 documented as of this encounter
--- OUTSIDE RECORDS SUMMARY | 2024-01-25 13:43 | XMS_ITS | Encounter Summary ---
Author Organization [facility] Address [facility] [place] [address] Care Team Providers Care Ski Maker Name Role Phone Rolando Zacarias MD Primary Care Provider [phone] Encounter Details Date Type Department Care Team (Late st Contact Info) Description 10/22/2011 11:51 AM EDT - 10/22/2011 11:59 PM EDT Hospital Encounter CT Scan at [facility] [place] [phone] Social History Tobacco Use Types Packs/Day Years [...] had a CT Scan on @ Per [facility] Policy it is important that you stop [...] contrast out of your body. Thank You, [facility] CT Scan Dept * Ancillary Services Notes - rAmani Stewart - 10/22/2011 12:02 PM EDT You had a CT Scan on @ Per [facility] Policy it is important that you stop [...] contrast out of your body. Thank You, [facility] CT Scan Dept documented in this encounter Plan of Treatment Upcoming Encounters Date Type Department Care Team (Late st Contact Info) Description 02/02/2024 12:15 PM EDT Laboratory Appointment Lab [address] [address] 02/02/2024 2:[address] [place] [address] Pascale Barboza, RADHA [facility] [place] [address] 02/02/2024 2:30 PM EDT Office [place] [address] Erik Gill MD [facility] [place] [address] documented as of this encounter Procedures Procedure [...] mg documented in this encounter Care Teams Ski Maker Relationship Specialty Start Date End Date Rolando Zacarias MD PCP - General 04/12/11 09/15/16 documented as of this encounter
--- OUTSIDE RECORDS SUMMARY | 2024-01-25 13:43 | XMS_ITS | Encounter Summary ---
Author Organization [facility] Address [facility] [place] [address] Care Team Providers Care Tower Watchman Name Role Phone Rolando Moise MD Primary Care Provider [phone] Encounter Details Date Type Department Care Team (Late st Contact Info) Description 02/03/2017 [place] [phone] Jeanette Betancourt MD [facility] [place] [address] Social History Tobacco Use Types Packs/Day Years [...] Referring Provider: Dr. Emanuel Osei Patient Location: [facility] Past Medical History: Patient Active Problem List Diagnosis Code ??? AAA (abdominal aortic aneurysm) I71.4 ??? HTN (hypertension) I10 ??? NIDDM (non-insulin dependent diabetes mellitus) ??? S/P hernia repair Z98.890, Z87.19 Presenting Symptoms per OSH: 81 yo man with hx of HTN, HLD, NIDDM and AAA s/p stenting who presents to [facility] with chest discomfort in the upper chest [...] have personally reviewed EKGs. Jeanette Betancourt MD Rn Radiation Oncology PGY-4 Pager: [phone] documented in this encounter Plan of Treatment Upcoming Encounters Date Type Department Care Team (Late st Contact Info) Description 02/02/2024 12:15 PM EDT Laboratory Appointment Lab [address] [place] [address] 02/02/2024 2:[address] [place] [address] Pascale Barboza, RADHA [facility] [place] [address] 02/02/2024 2:30 PM EDT Office [place] [address] Erik Gill MD [facility] [place] [address] documented as of this encounter Visit Diagnoses Not on filedocumented in this encounter Care Teams Tower Watchman Relationship Specialty Start Date End Date Rolando Moise MD PCP - General Family Medicine 09/16/16 documented as of this encounter
--- OUTSIDE RECORDS SUMMARY | 2024-01-25 13:43 | XMS_ITS | Encounter Summary ---
Author Organization [facility] [place] [address] Care Team Providers Care Boiler Coverer Helper Name Role Phone Rolando Zacarias MD Primary Care Provider [phone] Encounter Details Date Type Department Care Team (Late st Contact Info) Description 04/15/2014 Orders [place] [address] Sydnie Adam RN AAA (abdominal [...] 12:15 PM EDT Laboratory Appointment Lab [address] [place] [address] 02/02/2024 2:[address] [place] [address] Pascale Barboza, RADHA [facility] [place] [address] 02/02/2024 2:30 PM EDT Office [place] [address] Erik Gill MD [facility] [place] [address] documented as of this encounter Results * (ABNORMAL) Creatinine (08/11/2014 8:52 AM EDT) Creatinine 1.38 0.80 - 1.50 mg/dL DONN[facility] Comment: Please note that the pediatric reference intervals supplied above were not validated at [facility]. Results from pediatric patients should be interpreted in conjunction to the patient's age, height and muscle mass. Est Glomerular Filtration Rate 50(L) >=60 [facility] Comment: This estimated GFR (eGFR) value was [...] the following links into your internet browser. [email or web address] Blood specimen (specimen) 08/11/2014 8:52 AM EDT 08/11/2014 9:00 AM EDT Narrative Resulting Agency Comment Spec In Lab Steven Borges MD CHEMISTRY ORDERABLES Performing Organization Address City/State/[facility] Co de Phone Number [facility] documented in this encounter Visit Diagnoses Diagnosis AAA (abdominal aortic aneurysm) Abdominal aneurysm without mention of rupture documented in this encounter Care Teams Boiler Coverer Helper Relationship Specialty Start Date End Date Rolando Zacarias MD PCP - General 04/12/11 09/15/16 documented as of this encounter
--- OUTSIDE RECORDS SUMMARY | 2024-01-25 13:43 | XMS_ITS | Encounter Summary ---
Author Organization [facility] Address [facility] [place] [address] Care Team Providers Care Director Of Valuation Name Role Phone Rolando Zacarias MD Primary Care Provider [phone] Encounter Details Date Type Department Care Team (Latest Contact Info) Description 04/23/2011 2:32 PM EST - 04/23/2011 11:59 PM [facility] Hospital [place] [address] CLINIC, Steven Barahona MD [facility] [place] [address] AAA (abdominal aortic aneurysm) Discharge Disposition: Home [...] a CT Scan on @ ____AM/PM. Per [facility] Policy it is important that you stop taking your (Diabetic Medication) for 2 days following the injection of IV iodinated contrast. You can start taking your in the AM/PM. If you have any questions or concerns, contact your primary care provider. Also drink plenty of water following your CT Scan to help clear the IV Iodinated contrast out of your body. Thank You, [facility] CT Scan Dept documented in this encounter Plan of Treatment Upcoming Encounters Date Type Department Care Team (Late st Contact Info) Description 02/02/2024 12:15 PM EDT Laboratory Appointment Lab [address] [place] [address] 02/02/2024 2:[address] [place] [address] Pascale Barboza APRN [facility] [place] [address] 02/02/2024 2:30 PM EDT Office Visit Vascular Surgery at [facility] [place] [address] Erik Gill MD [facility] [place] [address] documented as of this encounter Procedures Procedure [...] iliac arteries. The greatest dimensions of the [place] aneurysm sac are 7.9 x 5.6 cm. [...] iliac arteries. The greatest dimensions of the [place] [place] aneurysm sac are 7.9 x 5.6cm. On [...] Intravenous, ONCE PRN, 1 dose, Starting on Fri04/23/11 at 1451, Until Fri04/23/11 at 1452, Per Protocol, Routine Given 04/23/2011 2:52 PM EST 38,500 mg documented in this encounter Care Teams Director Of Valuation Relationship Specialty Start Date End Date Rolando Zacarias MD PCP - General 04/12/11 09/15/16 documented as of this encounter
--- OUTSIDE RECORDS SUMMARY | 2024-01-25 13:43 | XMS_ITS | Encounter Summary ---
Author Organization [facility] Address [facility] [place] [address] Care Team Providers Care Pbx Operator Name Role Phone Rolando Zacarias MD Primary Care Provider [phone] Encounter Details Date Type Department Care Team (Late st Contact Info) Description 04/12/2011 11:00 AM EST Anesthesia Event [place] [address] Placido Doe MD [facility] [place] [address] Anesthesia Record Procedure Summary Procedure Name Responsible Anesthesiologist Anesthesia Start Time Anesthesia Stop Time @EVG-PLACEMENT, CUFF OR EXT. AORTIC OR ILIAC ANEURYSM REPAIR, GORE (WRVU 12.8) (Abdomen) Plaicdo Doe MD 04/12/11 1100 04/12/11 1457 Events [...] 04/13/11; 0800 04/12/11 0726 by Cristian Byers, TAPER/FINISHER 04/13/11 0800 by Vishnu Mckoy RN (RETIRED) Peripheral IV Line - Single Lumen 04/12/11; 0726; 04/16/11; 0142 04/12/11 0726 by Cristian Byers, TAPER/FINISHER 04/16/11 0142 by Tawana Valenzuela RN Urethral Catheter 04/12/11; 0727; indwelling double lumen catheter; 16; in place (inserted CARTRIDGE FEEDER); 04/15/11; 0643 04/12/11 0727 by Cristian Byers, [...] Removal Time: 1435 04/12/11 1452 by Bello Guerreor VICE PRESIDENT RESEARCH 04/13/11 1435 by Esme Cole RRT documented [...] recent URI Cardiovascular (+) hypertension, (-) past SC, CAD and CABG/stent ROS comment: Symptomatic 5cm [...] 12:15 PM EDT Laboratory Appointment Lab [address] [place] [address] 02/02/2024 2:[address] [place] [address] Pascale Barboza APRN [facility] [place] [address] 02/02/2024 2:30 PM EDT Office [place] [address] rEik Gill MD [facility] [place] [address] documented as of this encounter Visit Diagnoses Not on filedocumented in this encounter Care Teams Pbx Operator Relationship Specialty Start Date End Date Rolando Zacarias MD PCP - General 04/12/11 09/15/16 documented as of this encounter
--- OUTSIDE RECORDS SUMMARY | 2024-01-25 13:43 | XMS_ITS | Encounter Summary ---
Author Organization [facility] Address [facility] [place] [address] Care Team Providers Care Stopper Grinder Name Role Phone Rolando Zacarias MD Primary Care Provider [phone] Reason for Visit * Reason Comments Follow-up AAA surveillance Encounter Details Date Type Department Care Team (Late st Contact Info) Description 10/22/2011 1:00 PM EDT Follow-Up [place] [id number] CLINIC, Steven Barahona MD [facility] [place] [address] AAA (abdominal aortic aneurysm) (Primary Dx) Discharge [...] of aortic aneurysm, using Cook Zenith Flex [id number] via right; ipsilateral extension with TFLE 16-56; [...] 12:15 PM EDT Laboratory Appointment Lab [address] [place] [address] 02/02/2024 2:[address] [place] [phone] Pascale Barboza APRN [facility] [place] [address] 02/02/2024 2:30 PM EDT Office Visit [place] [phone] Erik Gill MD [facility] [place] [address] documented as of this encounter Results * [...] artery remains patent. 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 ??The wales abdominal aortic aneurysm sac has decreased in [...] artery remains patent. Maximum caliber of the wales abdominal aortic aneurysm sac has decreased from [...] due theinflow from an ileolumbar artery. The wales abdominal aortic aneurysm sac has decreased in size. Very early or resolving proximal sigmoid diverticulitis withoutperforation or abscess. Steven Borges MD IMG CT ORDERABLES documented in this encounter Visit Diagnoses Diagnosis AAA (abdominal aortic aneurysm)- Primary Abdominal aneurysm without mention of rupture AAA (abdominal aortic aneurysm) Abdominal aneurysm without mention of rupture documented in this encounter Care Teams Stopper Grinder Relationship Specialty Start Date End Date Rolando Zacarias MD PCP - General 04/12/11 09/15/16 documented as of this encounter
--- OUTSIDE RECORDS SUMMARY | 2024-01-25 13:43 | XMS_ITS | Encounter Summary ---
Author Organization [facility] [place] [address] Care Team Providers Care Spring Former Name Role Phone Rolando Zacarias MD Primary Care Provider [phone] Encounter Details Date Type Department Care Team (Late st Contact Info) Description 07/17/2016 Orders [place] [address] Esme Copeland CMA Abdominal aortic aneurysm (AAA) [...] 12:15 PM EDT Laboratory Appointment Lab [address] [place] [phone] 02/02/2024 2:[address] [place] [place] [address] Pascale Barboza, RADHA [facility] [place] [address] 02/02/2024 2:30 PM EDT Office [place] [address] Erik Gill MD [facility] [place] [address] documented as of this encounter Results * Endo-vascular AAA repair (09/16/2016 10:07 AM EDT) VB Text Report Department: Vascular Surgery Lab Patient: [id number] (CALI THOMPSON) CPT: 72472 ICD10: I71.4 Referring Physician: ACACIA BORGES ?? [...] lab database for comparison. Electronically Signed by: ERIK GILL on 2016-09-17 08:35:05 PM [facility] VB Text Report End of Report [facility] 09/16/2016 10:0 7 AM EDT Acacia Borges MD VASCULAR ORDERABLES [facility] documented in this encounter Visit Diagnoses Diagnosis Abdominal aortic aneurysm (AAA) without rupture documented in this encounter Care Teams Spring Former Relationship Specialty Start Date End Date Rolando Zacarias MD PCP - General 04/12/11 09/15/16 documented as of this encounter
--- OUTSIDE RECORDS SUMMARY | 2024-01-25 13:43 | XMS_ITS | Encounter Summary ---
Author Organization [facility] [place] [address] Care Team Providers Care Rug Inspector Helper Name Role Phone Rolando Zacarias MD Primary Care Provider [phone] Encounter Details Date Type Department Care Team (Late st Contact Info) Description 10/07/2012 Orders [place] [address] Skye Washington RN S/P aortic aneurysm repair [...] 12:15 PM EDT Laboratory Appointment Lab [address] [place] [phone] 02/02/2024 2:[address] [place] [place] [address] Pascale Barboza, NEEDLE LOOM TENDER [facility] [place] [address] 02/02/2024 2:30 PM EDT Office [place] [address] Erik Gill MD [facility] [place] [address] documented as of this encounter Visit Diagnoses Diagnosis S/P aortic aneurysm repair- Primary Other postprocedural status documented in this encounter Care Teams Rug Inspector Helper Relationship Specialty Start Date End Date Rolando Zacarias MD PCP - General 04/12/11 09/15/16 documented as of this encounter
--- OUTSIDE RECORDS SUMMARY | 2024-01-25 13:43 | XMS_ITS | Encounter Summary ---
Author Organization [facility] Address [facility] [place] [address] Care Team Providers Care Shaper Operator Name Role Phone Rolando Zacarias MD Primary Care Provider [phone] Encounter Details Date Type Department Care Team (Latest Contact Info) Description 08/11/2014 9:05 AM EDT - 08/11/2014 11:59 PM EDT Hospital Encounter CT Scan at [facility] [place] [phone] CLINIC, DR WATKINS AAA (abdominal aortic aneurysm) [...] mg by mouth 3 times daily. 02/03/2017 [place]-3 Fatty Acids-Vitamin E (FISH OIL) 1,000 mg [...] CT Scan on 08/11/2014 @ 9:40AM Per [facility] Policy it is important [...] contrast out of your body. Thank You, [facility] CT Scan Dept documented in this encounter Plan of Treatment Upcoming Encounters Date Type Department Care Team (Late st Contact Info) Description 02/02/2024 12:15 PM EDT Laboratory Appointment Lab [address] [address] 02/02/2024 2:[address] [place] [place] [address] Pascale Barboza APRN [facility] [place] [address] 02/02/2024 2:30 PM EDT Office [place] [address] Erik Gill MD [facility] [place] [address] documented as of this encounter Procedures Procedure [...] less conspicuous on the current study. Stable yurok aneurysm sac size. Findings noted previously of either resolving or very early proximal sigmoid diverticulitis without perforation or abscess are stable. Narrative 08/11/2014 10:45 AM EDT EXAMINATION: CTA of Abdomen and Pelvis With Contrast CLINICAL HISTORY: AAA s/p EVAR Endovascular repair of aortic aneurysm, using Tunezy Flex [id number] via right ipsilateral extension with TFLE 16-56 [...] distal limbs stable. Maximum caliber of the yurok abdominal aortic aneurysm sac unchanged, currently measuring 7.7 x 5.6 cm compared to prior of 7.6 x 5.5 cm. In 2011, this measured 7.6 x 5.3 cm. Contrast extravasation into the yurok abdominal aortic aneurysm sac evident only on [...] s/p EVAR Endovascular repair of aortic aneurysm,using Tunezy Flex [id number] via right ipsilateral extension with [id number] contralateral extension with TFLE 16-73; Apr 12, [...] distal limbs stable. Maximum caliber of the yurok abdominalaortic aneurysm sac unchanged, currently measuring 7.7 x 5.6 cm compared to priorof 7.6 x 5.5 cm. In 2011, this measured 7.6 x 5.3 cm. Contrast extravasationinto the yurok abdominal aortic aneurysm sac evident only on [...] mg documented in this encounter Care Teams Shaper Operator Relationship Specialty Start Date End Date Rolando Zacarias MD PCP - General 04/12/11 09/15/16 documented as of this encounter
--- OUTSIDE RECORDS SUMMARY | 2024-01-25 13:43 | XMS_ITS | Encounter Summary ---
Author Organization [facility] Address [facility] [place] [address] Care Team Providers Care Project Systems Engineer Name Role Phone Arely Vickers MD Primary Care Provider [phone] Reason for Visit * Reason Comments Abdominal Pain Encounter Details Date Type Department Care Team (Latest Contact Info) Description 04/12/2011 7:04 AM EST - 04/16/2011 1:05 PM [facility] Hospital Encounter [address] [place] [address] Robyn Fowler MD [facility] [address] [place] [address] Randy Padilla MD [facility] [place] [address] Acacia Borges MD [facility] [place] [address] AAA (abdominal aortic aneurysm) Discharge Disposition: Home [...] For any problems or questions please call [phone] Angela Mujica RN Vascular Nurse Clinician Loretta [...] yesterday. Will replete K again today. ID: [facility] trending down - patient on Vanc/zosyn for superimposed diverticulitis. Will start PO cipro/flagyl and have him continue for 7 more days. Dispo: Home today. * Christopher Barnes RN - 04/15/2011 4:05 PM EST Patient received from [facility] to [facility] in stable condition. 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 PRIMARY CARE PHYSICIAN: ARELY VICKERS MD [facility] [address] / [facility] [address] POTENTIAL DISCHARGE NEEDS: None anticipated; states can monitor his BP at home PATIENT/FAMILY EDUCATION NEEDS:per discharge summary ANTICIPATED BARRIERS TO DISCHARGE:none TRANSPORTATION @ D/C:radha Willard PLAN: Vascular CRC will continue to monitor progress, follow for continuity of care and assist withdischarge planning while hospitalized * Abhi Dukes, PharmD - 04/14/2011 2:08 PM EST Clinical Pharmacist Note-Vanc Cali Thompson [id number] 1935 Cali Thompson is a 75 y.o. [...] have. Alternately, during off-hours you may call [phone] to contact a pharmacist. ABHI DUKES, JONELLE [...] : UOP adequate, lytes/Cr acceptable, HLIV ID: [facility] up a bit today - patient Vanc/zosyn for superimposed diverticulitis Dispo: Up out of bed today. Will transfer to [facility] today * Estela Flores RCP - 04/13/2011 5:06 PM EST Patient found on noted settings. SBT done and patient passed and was extubated to 4 lpm NC with no complications. YA * Poli Chowdhury MD - 04/13/2011 3:01 PM EST Cali Thompson [id number] 04/13/2011 04/12/2011 7:04 AM Critical Care Medicine [...] Q12H ??? DISCONTD: ceFAZolin 2 g Intravenous Mortgage Loan Assistant to OR ??? DISCONTD: vancomycin 1 g Intravenous Q12H No Known Allergies EXAM: Temp: [35.7 ??C (96.3 ??F)-37.2 ??C (99 ??F)] Heart Rate: [47-80] Resp: [10-19] BP: (104)/(61) SpO2: [91 %-98 %] I/O last 3 completed shifts: In: 04362 [I.V.:77993] Out: 2300 [Urine:1700; Blood:600] I/O this shift: [...] 97 % SpO2: [91 %-98 %] SIMV/PS [id number] PEEP 5 FiO2 40% Last ABG 7.36/35/70/19 Intake/Output Summary (Last 24 hours) at 04/13/11 1155 Last data filed at 04/13/11 1000 Gross per 24 hour Intake 21212 ml Output 2775 ml Net 9784 ml [...] PM EST Clinical Pharmacist Note-Vanc Cali Thompson [id number] 1935 Cali Thompson is a 75 y.o. [...] have. Alternately, during off-hours you may call [phone] to contact a pharmacist. JIA VICTORIA PHARMD Pager [phone] * Chris Johnson - 04/12/2011 8:28 PM [...] at 04/12/111945 Gross per 24 hour Intake 18470 ml Output 1755 ml Net 8949 ml [...] Gill MD - 04/12/2011 8:08 AM EST [facility] staff procedure note: Under sterile cond RIGHT radial a-line placed for hemodynamic monitoring. Hand intact, excellent waveform. documented in this encounter H&P Notes * Poli Chowdhury MD - 04/12/2011 8:22 AM EST Cali Thompson [id number] 04/12/2011 04/12/2011 7:04 AM Critical Care Medicine [...] Once ??? DISCONTD: ceFAZolin 2 g Intravenous Mortgage Loan Assistant to OR No Known Allergies EXAM: Temp: [...] prior known history of AAA, presents to [facility] with c/o abdominal pain [...] urgently once medically optimized, [facility]: I saw and evaluated Mr. [...] 04/17/2011 11:15 AM ESTAssociated Order(s): SCAN DOC: PAGEANT DIRECTOR documented in this encounter ED Notes [...] current pain regimen. Encouraged to notify staff technologist when inneed of pain medication. Continue to [...] Operative Note Patient Name: Cali Thompson : [id number] MR#: [id number] Case Date: 04/12/2011 Surgeon: Surgeon(s) and Role: * ACACIA BORGES MD - Primary * JOAN VAIL MD - Fellow Preoperative diagnosis: symptomatic infrarenal aortic aneurysm Postoperative diagnosis: same Procedure(s): Bilateral femoral arterial exposures Endovascular repair of aortic aneurysm, using Datavailith Flex [id number] via right; ipsilateralextension with TFLE 16-56; contralateral [...] point on the right we advanced a Mediamind device type [id number], and this was advanced up to the [...] the delivery system was removed, and a 12-[place]a dry seal was advanced. On the right [...] removed the delivery system and advanced a 20-[place]a dry seal up the right side. We [...] Operative Note Patient Name: Cali Thompson : [id number] MR#: [id number] Case Date: 04/12/2011 Surgeon: Surgeon(s) and Role: * ACACIA BORGES MD - Primary * JOAN VAIL MD - Fellow Preoperative diagnosis: symptomatic infrarenal aortic aneurysm Postoperative diagnosis: same Procedure(s): Bilateral femoral arterial exposures Endovascular repair of aortic aneurysm, using Mediamind Flex [id number] via right; ipsilateralextension with TFLE 16-56; contralateral [...] Discharge date and time: 04/16/2011 Attending Physician: Acacia Borges MD. Discharge Diagnoses (Hospital Problems) and Secondary Diagnoses (Chronic Problems): Active Hospital Problems Diagnoses ??? 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 HTN (hypertension) ??? NIDDM (non-insulin dependent diabetes mellitus) ??? S/P hernia repair Operations/Major Procedures: 04/12/11: Bilateral femoral arterial exposures Endovascular repair of aortic aneurysm, using Mediamind Flex [id number] via right; ipsilateralextension with TFLE 16-56; contralateral extension with TFLE 16-73 History of Presentation: 75 year old male without prior known history of AAA, presented to [facility] with complaints of abdominal [...] For any problems or questions please call [phone] Angela Mujica RN Vascular Nurse Clinician Loretta Matthews RN Vascular Nurse Clinician Future Appointments and Orders Future Orders Please Complete By Expires CT abdomen & pelvis with contrast [[id number] Custom] 05/13/11 04/12/12 Process Instructions: Scheduling Instructions: [...] as a transfer from [facility] vascular with a dx of AAA. [...] bedside upon pt arrival. Pt placed on court monitor, labs obtained and sent. Pt c/o having to urinate, unable to do so, when bladder scanned found to have 962 ml in bladder, brooke catheter inserted at this time with relief from the abdominal pressure noted by pt. * OR Attestation - Acacia Borges MD - 04/12/2011 12:00 AM EST Attestation: Case Date: 04/12/2011 I was present for and participated in this entire case ACACIA BORGES MD 04/15/2011 documented in this encounter Plan of Treatment Upcoming Encounters Date Type Department Care Team (Late st Contact Info) Description 02/02/2024 12:15 PM EDT Laboratory Appointment Lab [address] [place] [id number] 02/02/2024 2:[address] [place] [address] Pascale Barboza APRN [facility] [address] VASCULAR SURGERY [place], [place] [id number] 02/02/2024 2:30 PM EDT Office [place] [address] Erik Gill MD [facility] [place] [address] documented as of this encounter Procedures Procedure [...] IMPLANTABLE DEVICES SCAN 04/17/2011 11:15 AM EST PAGEANT DIRECTOR SCAN 04/17/2011 11:15 AM EST POCT [...] SCAN EXT O RDR/RSLT * SCAN DOC: PAGEANT DIRECTOR (04/17/2011 11:15 AM EST) Anatomical Region Laterality Modality Other Narrative 04/17/2011 3:20 PM EST Procedure Note Provider, Scanning - 04/17/2011 11:15 AM EST Scanning Provider MEDIA MGR SCAN EXT O RDR/RSLT * (ABNORMAL) POCT GLUCOSE LAB USE ONLY (04/16/2011 10:58 AM EST) Glucose, POC 257(H) 60 - 199 mg/dL [facility] Comment: Supplemental ranges: <110 mg/dL before meals <200 mg/dL all other times of the day Blood specimen (specimen) 04/16/2011 10:58 AM EST 04/16/2011 10:58 AM EST Randy Padilla MD POINT OF CARE TEST O RDERABLES [facility] * POCT GLUCOSE LAB USE ONLY (04/16/2011 7:21 AM EST) Glucose, POC 181 60 - 199 mg/dL [facility] Comment: Supplemental ranges: <110 mg/dL before meals <200 mg/dL all other times of the day Blood specimen (specimen) 04/16/2011 7:21 AM EST 04/16/2011 7:21 AM EST Randy Padilla MD POINT OF CARE TEST O RDERABLES CERNER MILLENNIUM * (ABNORMAL) DIFFERENTIAL, AUTOMATED (04/16/2011 6:08 AM [...] Padilla MD CHEMISTRY ORDERABLES Performing Organization Address City/[facility] Co de Phone Number CERNER MILLENNIUM * (ABNORMAL) CBC (with Diff) (04/16/2011 6:08 [...] HEMATOLOGY ORDERABLE S CERNER MILLENNIUM * (ABNORMAL) POCT GLUCOSE LAB USE ONLY (04/15/2011 8:59 PM EST) Glucose, POC 217(H) 60 - 199 mg/dL [facility] Comment: Supplemental ranges: <110 mg/dL before meals <200 mg/dL all other times of the day Blood specimen (specimen) 04/15/2011 8:59 PM EST 04/15/2011 8:59 PM EST Randy Padilla MD POINT OF CARE TEST O RDERAJAZZY Performing Organization Address [facility] de Phone Number [facility] * POCT GLUCOSE LAB USE ONLY (04/15/2011 4:07 PM EST) Glucose, POC 162 60 - 199 mg/dL [facility] Comment: Supplemental ranges: <110 mg/dL before meals <200 mg/dL all other times of the day Blood specimen (specimen) 04/15/2011 4:07 PM EST 04/15/2011 4:07 PM EST Randy Padilla MD POINT OF CARE TEST O RDJACKIE Performing Organization Address [facility] Phone Number [facility] * POCT GLUCOSE LAB USE ONLY (04/15/2011 12:46 PM EST) Glucose, POC 157 60 - 199 mg/dL [facility] Comment: Supplemental ranges: <110 mg/dL before meals <200 mg/dL all other times of the day Blood specimen (specimen) 04/15/2011 12:46 PM EST 04/15/2011 12:46 PM EST Randy Padilla MD POINT OF CARE TEST O RDERAJAZZY Performing Organization Address [facility] Phone Number [facility] * POCT GLUCOSE LAB USE ONLY (04/15/2011 8:34 AM EST) Glucose, POC 173 60 - 199 mg/dL [facility] Comment: Supplemental ranges: <110 mg/dL before meals <200 mg/dL all other times of the day Blood specimen (specimen) 04/15/2011 8:34 AM EST 04/15/2011 8:34 AM EST Randy Padilla MD POINT OF CARE TEST O RDERABLES CERNER MILLENNIUM * (ABNORMAL) DIFFERENTIAL, AUTOMATED (04/15/2011 6:05 AM [...] HEMATOLOGY ORDERABLE S CERNER MILLENNIUM * (ABNORMAL) CBC (with Diff) (04/15/2011 6:05 [...] Padilla MD CHEMISTRY ORDERABLES Performing Organization Address City/State/[facility] Phone Number [facility] * (ABNORMAL) Potassium (04/15/2011 4:30 AM EST) Potassium 3.2(L) 3.5 - 5.0 mmol/L [facility] Comment: Please note: ??Patients with WBC >100,000 may have falsely elevated Potassium levels. ??For accurate Potassium quantification in these patients send serum separator tube (gold top) for subsequent determinations. ??Contact the Clinical Chemistry Laboratory if there are any questions. Blood specimen (specimen) 04/15/2011 4:30 AM EST 04/15/2011 4:34 AM EST Randy Padilla MD CHEMISTRY ORDERABLES Performing Organization Address [facility] Phone Number [facility] * POCT GLUCOSE LAB USE ONLY (04/14/2011 8:46 PM EST) Glucose, POC 156 60 - 199 mg/dL [facility] Comment: Supplemental ranges: <110 mg/dL before meals <200 mg/dL all other times of the day Blood specimen (specimen) 04/14/2011 8:46 PM EST 04/14/2011 8:46 PM EST Randy Padilla MD POINT OF CARE TEST O RDERABLES Performing Organization Address [facility] Phone Number [facility] * POCT GLUCOSE LAB USE ONLY (04/14/2011 5:36 PM EST) Glucose, POC 159 60 - 199 mg/dL [facility] Comment: Supplemental ranges: <110 mg/dL before meals <200 mg/dL all other times of the day Blood specimen (specimen) 04/14/2011 5:36 PM EST 04/14/2011 5:36 PM EST Randy Padilla MD POINT OF CARE TEST O RDERABLES Performing Organization Address [facility] Phone Number [facility] * (ABNORMAL) POCT GLUCOSE LAB USE ONLY (04/14/2011 1:31 PM EST) Glucose, POC 201(H) 60 - 199 mg/dL [facility] Comment: Supplemental ranges: <110 mg/dL before meals <200 mg/dL all other times of the day Blood specimen (specimen) 04/14/2011 1:31 PM EST 04/14/2011 1:31 PM EST Randy Padilla MD POINT OF CARE TEST O RDJACKIE Performing Organization Address [facility] Phone Number [facility] * VANCOMYCIN, TROUGH (04/14/2011 10:30 AM EST) Vancomycin, Trough 14.2 mg/L Anna [facility] Comment: Therapeutic range for complicated infections such [...] Padilla MD CHEMISTRY ORDERABLES Performing Organization Address [facility] Phone Number [facility] * POCT GLUCOSE LAB USE ONLY (04/14/2011 8:17 AM EST) Glucose, POC 171 60 - 199 mg/dL [facility] Comment: Supplemental ranges: <110 mg/dL before meals <200 mg/dL all other times of the day Blood specimen (specimen) 04/14/2011 8:17 AM EST 04/14/2011 8:17 AM EST Randy Padilla MD POINT OF CARE TEST O RDERAJAZZY Performing Organization Address [facility] Phone Number CERNER MILLENNIUM * (ABNORMAL) DIFFERENTIAL, AUTOMATED (04/14/2011 8:00 AM [...] MD HEMATOLOGY ORDERABLE S DONNIE JUNIORIUM * LACTIC ACID, PLASMA (04/14/2011 8:00 AM EST) Lactic Acid 1.3 0.5 - 2.2 mmol/L CERNER MILLENNIUM Blood specimen (specimen) 04/14/2011 8:00 AM EST 04/14/2011 8:31 PM EST Randy Padilla MD CHEMISTRY ORDERABLES Performing Organization Address [facility] Co de Phone Number CERMARTI HIGGINSENNIUM [...] [facility]/ZIP Co de Phone Number CERMARTI JUNIORIUM * (ABNORMAL) BASIC METABOLIC PANEL (NON-FASTING) (04/14/2011 [...] Organization Address [facility] de Phone Number [facility] * (ABNORMAL) Potassium (04/13/2011 9:47 PM EST) Potassium 3.4(L) 3.5 - 5.0 mmol/L [facility] Comment: Please note: ??Patients with WBC [...] Organization Address [facility] de Phone Number [facility] * POCT GLUCOSE LAB USE ONLY (04/13/2011 8:22 PM EST) Glucose, POC 167 60 - 199 mg/dL [facility] Comment: Supplemental ranges: <110 mg/dL before meals <200 mg/dL all other times of the day Blood specimen (specimen) 04/13/2011 8:22 PM EST 04/13/2011 8:22 PM EST Randy Padilla MD POINT OF CARE TEST O BHASKAR Performing Organization Address [facility] de Phone Number [facility] * POCT GLUCOSE LAB USE ONLY (04/13/2011 5:58 PM EST) Glucose, POC 164 60 - 199 mg/dL [facility] Comment: Supplemental ranges: <110 mg/dL before [...] L plus symptoms. Flow Art 4.0 LPM [facility] M[facility] Blood specimen (specimen) 04/13/2011 5:53 PM EST 04/13/2011 5:53 PM EST Randy Padilla MD POINT OF CARE TEST O RDERABLES Performing Organization Address [facility] de Phone Number [facility] * Lactic acid, plasma (04/13/2011 5:30 PM EST) Lactic Acid 1.8 0.5 - 2.2 mmol/L [facility] Blood specimen (specimen) 04/13/2011 5:30 PM EST 04/14/2011 7:25 PM EST Randy Padilla MD CHEMISTRY ORDERABLES Performing Organization Address [facility] Co de Phone Number [facility] * POCT GLUCOSE LAB USE ONLY (04/13/2011 1:08 PM EST) Glucose, POC 117 60 - 199 mg/dL [facility] Comment: Supplemental ranges: <110 mg/dL before [...] mmol/L CERNER MILLENNIUM Comment: Noted by instrument repairer steam plant. Please note: Patients with WBC >100,000 may [...] CARE TEST O RDERABLES Performing Organization Address City/[facility] Co de Phone Number [facility] * Lactic acid, plasma (04/13/2011 12:45 PM EST) Lactic Acid 1.9 0.5 - 2.2 mmol/L CERNER MILLENNIUM Blood specimen (specimen) 04/13/2011 12:45 PM EST 04/14/2011 7:19 PM EST Randy Padilla MD CHEMISTRY ORDERABLES [facility] * POCT GLUCOSE LAB USE ONLY (04/13/2011 8:37 AM EST) Glucose, POC 128 60 - 199 mg/dL CERNER MILLENNIUM Comment: [...] al) mmol/L CERNER MILLENNIUM Comment: noted by complaint operator Please note: Patients with WBC >100,000 may have falsely elevated Potassium levels. Contact the Clinical Chemistry Laboratory if there are any questions. ICa Whole Blood 0.91(Criti juan manuel) mmol/L CERNER MILLENNIUM Comment: noted by complaint operator Reference Ranges: ?? < 19 yrs: [...] CARE TEST O RDERABLES Performing Organization Address [facility] Co de Phone Number [facility] * (ABNORMAL) Lactic acid, plasma (04/13/2011 5:47 AM EST) Lactic Acid 2.3(H) 0.5 - 2.2 mmol/L CERNER MILLENNIUM Blood specimen (specimen) 04/13/2011 5:47 AM EST 04/13/2011 5:55 AM EST Randy Padilla MD CHEMISTRY ORDERABLES Performing Organization Address [facility] Co de Phone Number CERNER MILLENNIUM [...] Absolute 0.04 0.00 - 0.05 x10(3)/mc L [facility] Blood specimen (specimen) 04/13/2011 4:00 AM EST 04/13/2011 4:10 AM EST Narrative Authorizing Provider Result Telma Fowler MD HEMATOLOGY ORDERABLE S Performing Organization Address [facility] Phone Number [facility] * APTT (04/13/2011 4:00 AM EST) Partial Thromboplastin Time 27 25 - 37 sec [facility] Comment: Recommended therapeutic PTT range for full dose unfractionated heparin is 80-114 seconds. Blood specimen (specimen) 04/13/2011 4:00 AM EST 04/13/2011 4:10 AM EST Narrative Authorizing Provider Result Telma Fowler MD HEMATOLOGY ORDERABLE S Performing Organization Address [facility] Phone Number [facility] * (ABNORMAL) Prothrombin Time (04/13/2011 4:00 AM EST) Prothrombin Time 14.8(H) 12.3 - 14.7 sec [facility] Comment: [facility] Transfusion Committee Guidelines: INR less than 2.0, PTT less than OR equal to 43.5 seconds, or Fibrinogen greater than or equal to 100 mg/dl indicate adequate procoagulant activity for hemostasis in patients without underlying bleeding disorders. International Normalization Ratio 1.1 0.9 - 1.1 [facility] Blood specimen (specimen) 04/13/2011 4:00 AM EST 04/13/2011 4:10 AM EST Narrative Authorizing Provider Result Telma Fowler MD HEMATOLOGY ORDERABLE S Performing Organization Address [facility] Phone Number [facility] * (ABNORMAL) Basic Metabolic Panel (non-fasting) (04/13/2011 4:00 AM EST) Glucose 158 60 - 199 mg/dL CERNER MILLENNIUM Comment:Diabetes: [...] Fowler MD CHEMISTRY ORDERABLES Performing Organization Address City/[facility]/ZIP Co de Phone Number DONNIE JUNIORIUM * [...] Result Telma Fowler MD HEMATOLOGY ORDERABLE S DONNIE DIETZ [...] CL Whole Blood 110(H) mmol/L [facility] Gluc Whole Bld 152 mg/dL [facility] Comment:Diabetes: >=200 mg/d L plus symptoms. FIO2 Art 40 % [facility] PF Ratio Art 165 [facility] Blood specimen (specimen) 04/12/2011 11:57 PM EST 04/12/2011 11:57 PM EST Randy Padilla MD POINT OF CARE TEST O RDERAJAZZY Performing Organization Address [facility] Phone Number [facility] * Lactic acid, plasma (04/12/2011 11:55 PM EST) Lactic Acid 1.8 0.5 - 2.2 mmol/L [facility] Comment:result rechecked-llu Blood specimen (specimen) 04/12/2011 11:55 PM EST 04/13/2011 12:04 AM EST Randy Padilla MD CHEMISTRY ORDERABLES Performing Organization Address [facility] Phone Number [facility] * POCT GLUCOSE LAB USE ONLY (04/12/2011 8:41 PM EST) Glucose, POC 129 60 - 199 mg/dL [facility] Comment: Supplemental ranges: <110 mg/dL before meals <200 mg/dL all other times of the day Blood specimen (specimen) 04/12/2011 8:41 PM EST 04/12/2011 8:41 PM EST Randy Padilla MD POINT OF CARE TEST O RDERAJAZZY Performing Organization Address [facility] Phone Number [facility] * (ABNORMAL) BLOOD GAS 2 ARTERIAL (04/12/2011 8:05 PM EST) [facility] pH, Arterial 7.37 7.35 - 7.45 CERNER MILLENNIUM PCO2, Arterial 35 35 - 45 mmHg CERNER MILLENNIUM PO2, Arterial 72(L) 85 - 104 [...] Organization Address City/[facility] Co de Phone Number CERNER MILLENNIUM * (ABNORMAL) Lactic acid, plasma (04/12/2011 5:25 PM EST) Lactic Acid 4.5(H) 0.5 - 2.2 mmol/L CERNER MILLENNIUM Blood specimen (specimen) 04/12/2011 5:25 PM EST 04/12/2011 5:40 PM EST Randy Padilla MD CHEMISTRY ORDERABLES Performing Organization Address City/[facility]/ZIP Co de Phone Number CERNER MILLENNIUM * [...] MD HEMATOLOGY ORDERABLE S DONNIE HIGGINSENNIUM * XR CHEST PA OR AP- 1 [...] juan manuel) CERNER MILLENNIUM Comment:Noted by instrument repairer steam plant. PCO2, Arterial 41 mmHg CERNE R MILLENNIUM [...] CARE TEST O RDERAJAZZY Performing Organization Address [facility] Co de Phone Number [facility] * (ABNORMAL) POCT GLUCOSE LAB USE ONLY (04/12/2011 3:49 PM EST) Glucose, POC 217(H) 60 - 199 mg/dL [facility] Comment: Supplemental ranges: <110 mg/dL before meals <200 mg/dL all other times of the day Blood specimen (specimen) 04/12/2011 3:49 PM EST 04/12/2011 3:49 PM EST Randy Padilla MD POINT OF CARE TEST O BHASKAR Performing Organization Address [facility] de Phone Number [facility] * (ABNORMAL) BLOOD GAS ARTERIAL [...] Whole Bld 175 60 - 199 mg/dL [facility] MILLENNIUM Comment:Diabetes: >=200 mg/d L plus symptoms. Lactate WB 3.6(H) 0.5 - 2.2 mmol/L CERNER MILLENNIUM FIO2 Art 40 % CERNER MILLENNIUM PF Ratio Art 175 [facility] Blood specimen (specimen) 04/12/2011 3:10 PM EST 04/12/2011 3:21 PM EST Randy Padilla MD CHEMISTRY ORDERABLES Performing Organization Address [facility] de Phone Number [facility] * POCT GLUCOSE LAB USE ONLY (04/12/2011 2:57 PM EST) Pathologist [facility] Glucose, POC 198 60 - 199 mg/dL [facility] Comment: Supplemental ranges: <110 mg/dL before meals <200 mg/dL all other times of the day Blood specimen (specimen) 04/12/2011 2:57 PM EST 04/12/2011 2:57 PM EST Randy Padilla MD POINT OF CARE TEST O RDERABLES Performing Organization Address [facility] Phone Number [facility] * KAUR HOLD (04/12/2011 2:55 PM EST) Pathologist [facility] Kaur Hold Sample in lab. [facility] Blood specimen (specimen) 04/12/2011 2:55 PM EST 04/12/2011 3:30 PM EST Randy Padilla MD CHEMISTRY ORDERABLES Performing Organization Address [facility] Co de Phone Number [facility] * (ABNORMAL) Hepatic Function Panel (04/12/2011 2:55 PM EST) Pathologist [facility] Protein, Total 4.6(L) 6.4 - 8.3 gm/dL [facility] Albumin 2.7(L) 3.2 - 5.2 gm/dL [facility] Aspartate Aminotransferase 28 0 - 39 unit/L [...] MD CHEMISTRY ORDERABLES Performing Organization Address [facility] Phone Number [facility] MILLENNIUM * (ABNORMAL) Phosphorus (04/12/2011 2:55 PM EST) Phosphorus 4.6(H) 2.5 - 4.5 mg/dL CERNER MILLENNIUM Blood specimen (specimen) 04/12/2011 2:55 PM EST 04/12/2011 3:22 PM EST Randy Padilla MD CHEMISTRY ORDERABLES Performing Organization Address [facility] Phone Number [facility] MILLENNIUM * (ABNORMAL) Magnesium (04/12/2011 2:55 PM EST) Magnesium 0.54(L) 0.69 - 1.07 mmol/L [facility] Blood specimen (specimen) 04/12/2011 2:55 PM EST 04/12/2011 3:22 PM EST Randy Padilla MD CHEMISTRY ORDERABLES Performing Organization Address [facility] Phone Number [facility] MILLENNIUM * (ABNORMAL) Prothrombin Time (04/12/2011 2:55 PM EST) Prothrombin Time 15.8(H) 12.3 - 14.7 sec CERNER MILLENNIUM Comment: [facility] Transfusion Committee Guidelines: INR less than 2.0, PTT less than OR equal to 43.5 seconds, or Fibrinogen greater than or equal to 100 mg/dl indicate adequate procoagulant activity for hemostasis in patients without underlying bleeding disorders. International Normalization Ratio 1.2(H) 0.9 - 1.1 CERNER MILLENNIUM Blood specimen (specimen) 04/12/2011 2:55 PM EST 04/12/2011 3:22 PM EST Randy Padilla MD HEMATOLOGY ORDERABLE S Performing Organization Address [facility] de Phone Number CERNER MILLENNIUM * APTT (04/12/2011 2:55 PM EST) Partial Thromboplastin Time 32 25 - 37 sec CERNER MILLENNIUM Comment: Recommended therapeutic PTT range for full dose unfractionated heparin is 80-114 seconds. Blood specimen (specimen) 04/12/2011 2:55 PM EST 04/12/2011 3:22 PM EST Randy Padilla MD HEMATOLOGY ORDERABLE S Performing Organization Address [facility] Phone Number CERNER MILLENNIUM * (ABNORMAL) Basic Metabolic Panel [...] MD CHEMISTRY ORDERABLES DONNIE DIETZ * (ABNORMAL) BLOOD GAS 2 ARTERIAL (04/12/2011 2:06 PM EST) pH, Arterial 7.21(Criti juan manuel) CERNER MILLENNIUM Comment:Noted by instrument repairer steam plant. PCO2, Arterial 41 mmHg CERNE R MILLENNIUM [...] juan manuel) CERNER MILLENNIUM Comment:Noted by instrument repairer steam plant. PCO2, Arterial 48(H) mmHg CERNE R MILLENNIUM [...] TEST O RDERABLES DONNIE DIETZ * (ABNORMAL) POCT GLUCOSE LAB [...] TEST O RDERABLES CERMARTI HIGGINSENNIUM * (ABNORMAL) POCT GLUCOSE LAB USE ONLY (04/12/2011 9:53 AM EST) Pathologist [facility] Glucose, POC 286(H) 60 - 199 mg/dL CERNER MILLENNIUM Comment: Supplemental ranges: <110 mg/dL before meals <200 mg/dL all other times of the day Blood specimen (specimen) 04/12/2011 9:53 AM EST 04/12/2011 9:53 AM EST Randy Padilla MD POINT OF CARE TEST O RDERABLES [facility] * ANTIBODY SCREEN (04/12/2011 8:25 AM EST) Ab Screen Interp Negative CERNER MILLENNIUM Expires at [id number] on: [id number] CERNER MILLENNIUM Blood specimen (specimen) 04/12/2011 8:25 AM EST 04/12/2011 8:38 AM EST Erik Gill MD BLOOD BANK LAB ORDER BRIANNE Performing Organization Address [facility] Phone Number DONNIE DIETZ * ABO/RH TYPING (04/12/2011 8:25 AM EST) ABORH Type O Pos DONNIE DIETZ Blood specimen (specimen) 04/12/2011 8:25 AM EST 04/12/2011 8:38 AM EST Erik Gill MD BLOOD BANK LAB ORDER BRIANNE Performing Organization Address [facility] Phone Number DONNIE DIETZ * Green Tube HOLD (04/12/2011 8:25 AM EST) Green Hold Sample in lab. DONNIE DIETZ Blood specimen (specimen) 04/12/2011 8:25 AM EST 04/12/2011 8:38 AM EST Erik Gill MD CHEMISTRY ORDERABLES Performing Organization Address [facility] Phone Number DONNIE DIETZ * Lavender Tube HOLD (04/12/2011 8:25 AM EST) Lavender Hold Sample in lab. DONNIE DIETZ Blood specimen (specimen) 04/12/2011 8:25 AM EST 04/12/2011 8:38 AM EST Erik Gill MD HEMATOLOGY ORDERABLE S Performing Organization Address [facility] de Phone Number DONNIE DIETZ [...] (Bezet) 450 ms MUSE SYSTEM Calculated P [place] 33 degrees MUSE SYSTEM Calculated R [place] 50 degrees MUSE SYSTEM Calculated T [place] 66 degrees MUSE SYSTEM INTERPRETATION Sinus rhythm with 1st degree A-V block Otherwise normal ECG No previous ECGs available Confirmed by MD JORDAN BRUCE ([id number]) on 04/12/2011 12:43:10 PM MUSE SYSTEM 04/12/2011 7:31 AM EST 04/12/2011 12:43 PM EST Robyn Fowler MD ECG ORDERABLES MUSE SYSTEM * Urine culture Straight Catheter Urine (04/12/2011 7:26 AM EST) Urine Culture ? Patient Name: CALI THOMPSON ?Ordered By: ROBYN FOWLER ? MR#: [id number] ?LOC: ??ICUN ? /Sex: ?? 7 (75 years), ? Male ? PROCEDURE: Urine Culture ?SOURCE: [facility] ? COLLECTED: 04/12/2011 07:26 ? STARTED: 04/12/2011 08:10 ? FINAL REPORT ? Final Report ? Verified: 06:39 ? No growth (Less than 1,000 cfu/ml). ? ____ CERNER MILLENNIUM Urine specimen obtained via straight catheter (specimen) 04/12/2011 7:26 AM EST 04/12/2011 8:10 AM EST Robyn Fowler MD MICROBIOLOGY - GENER AL ORDERABLES CERNER MILLENNIUM * (ABNORMAL) Urinalysis with microscopic [...] Urine Dipstick Clear Clear CERNER MILLENNIUM Specific [place] Urine Automated 1.021 1.002 - 1.030 CERNER MILLENNIUM Color, Urine Dipstick Yellow Yellow CERNER MILLENNIUM RBC, Urine Not Present 0 - 3 CERNER MILLENNIUM WBC, Urine Not Present 0 - 3 CERNER MILLENNIUM Urine specimen (specimen) 04/12/2011 7:25 AM EST 04/12/2011 7:39 AM EST Robyn Fowler MD URINE ORDERABLES CERNER MILLENNIUM * (ABNORMAL) DIFFERENTIAL, AUTOMATED (04/12/2011 [...] HEMATOLOGY ORDERABLE S Performing Organization Address [facility] de Phone Number DONNIE DIETZ * CK (04/12/2011 7:15 AM EST) Creatine Kinase 57 0 - 200 unit/L [facility] Blood specimen (specimen) 04/12/2011 7:15 AM EST 04/12/2011 7:34 AM EST Robyn Fowler MD CHEMISTRY ORDERABLES Performing Organization Address [facility] Phone Number [facility] * Troponin T (04/12/2011 7:15 AM EST) Pathologist [facility] Troponin-T <0.03 <=0.03 ng/mL [facility] Comment: 0.03 ng/mL: Represents the 99th percentile upper reference limit for normals. >0.03 ng/mL: Elevated cardiac troponin T level indicative of myocardial damage. Diagnosis of acute, evolving or recent [place] requires a typical rise and gradual fall [...] consensus document of the Joint Society of Cardiology/[place] College [employer] Committee for the redefinition of myocardial infarction. Journal of the [place] College of Cardiology 2000; 36: 959-969] Blood specimen (specimen) 04/12/2011 7:15 AM EST 04/12/2011 7:34 AM EST Narrative Authorizing Provider Result Telma Fowler MD CHEMISTRY ORDERABLES Performing Organization Address [facility] Phone Number DONNIE DIETZ * APTT (04/12/2011 7:15 AM EST) Partial Thromboplastin Time 28 25 - 37 sec [facility] Comment: Recommended therapeutic PTT range for full dose unfractionated heparin is 80-114 seconds. Blood specimen (specimen) 04/12/2011 7:15 AM EST 04/12/2011 7:34 AM EST Narrative Authorizing Provider Result Telma Fowler MD HEMATOLOGY ORDERABLE S Performing Organization Address [facility] Phone Number [facility] * Prothrombin Time (04/12/2011 7:15 AM EST) Prothrombin Time 13.2 12.3 - 14.7 sec [facility] Comment: [facility] Transfusion Committee Guidelines: INR less than 2.0, PTT less than OR equal to 43.5 seconds, or Fibrinogen greater than or equal to 100 mg/dl indicate adequate procoagulant activity for hemostasis in patients without underlying bleeding disorders. International Normalization Ratio 1.0 0.9 - 1.1 [facility] Blood specimen (specimen) 04/12/2011 7:15 AM EST 04/12/2011 7:34 AM EST Narrative Authorizing Provider Result Telma Fowler MD HEMATOLOGY ORDERABLE S Performing Organization Address [facility] Phone Number [facility] * (ABNORMAL) Glucose, random (04/12/2011 7:15 AM EST) Glucose 299(H) 60 - 199 mg/dL [facility] Comment:Diabetes: >=200 mg/d L plus symptoms Blood specimen (specimen) 04/12/2011 7:15 AM EST 04/12/2011 7:34 AM EST Narrative Authorizing Provider Result Telma Fowler MD CHEMISTRY ORDERABLES Performing Organization Address [facility] Phone Number [facility] * Creatinine, serum (04/12/2011 7:15 AM EST) Creatinine 0.98 0.80 - 1.50 mg/dL [facility] Est Glomerular Filtration Rate >60 >=60 [facility] Comment: The National Kidney Disease Education Program [...] Fowler MD CHEMISTRY ORDERABLES Performing Organization Address [facility] de Phone Number [facility] * BUN (04/12/2011 7:15 AM EST) Blood Urea Nitrogen 14 10 - 20 mg/dL [facility] MILLENNIUM Blood specimen (specimen) 04/12/2011 7:15 AM EST 04/12/2011 7:34 AM EST Robyn Fowler MD CHEMISTRY ORDERABLES Performing Organization Address [facility] de Phone Number [facility] * Electrolytes panel (04/12/2011 7:15 AM EST) [...] AM EST Robyn Fowler MD CHEMISTRY ORDERABLES [facility]ERMART[facility] HIGGINSENNIUM * (ABNORMAL) CBC (with Diff) (04/12/2011 7:15 [...] EST Robyn Fowler MD HEMATOLOGY ORDERABLE S CERMARTI HIGGINSENNIUM documented in this encounter Visit Diagnoses Diagnosis AAA (abdominal aortic aneurysm)- Primary Abdominal aneurysm without mention of rupture documented in this encounter Administered Medications Inactive Administered Medications - up to 3 most recent administrations Medication Order MAR Action Action Date Dose Rate Site acetaminophen (TYLENOL) tablet 650 mg 650 mg, Oral, EVERY 4 HOURS PRN, Starting on Fri04/14/11 at 0106, Until Fri04/16/11 at 1506, Pain, [...] 300 mg, Rectal, DAILY, First dose on [facility] 04/13/11 at 1230, Until Discontinued, Routine Given 04/13/2011 [...] on 04/15/11 at 0900, Until Discontinued, Routine Given 04/15/2011 [...] 0934, Until Fri04/15/11 at 2359, Pain, Routine Given 04/15/2011 8:24 AM EST 15 mg Given 04/14/2011 5:41 PM EST 15 mg Given 04/14/2011 11:34 AM EST 15 mg ketorolac (TORADOL) injection 15 mg 15 mg, Intravenous, ONCE, 1 dose, On Fri04/16/11 at 0145, Routine Given 04/16/2011 1:42 AM [...] Fri04/12/11 at 1545, Until Fri04/14/11 at 0734 New Bag 04/13/2011 6:00 AM [...] on Fri04/16/11 at 0900, Until Discontinued, Routine 09 (Given - Provider: Leandra Monreal, MARILYN) enalapril (VASOTEC) tablet 5 mg (CANCELED) 5 mg, Oral, DAILY, First dose on Fri04/15/11 at 0900, Until Discontinued, Routine 0900 (Given - Provider: Vishnu Mckoy RN) esomeprazole (NEXIUM) capsule 40 mg (CANCELED)(Linked Group 1) 40 mg, Oral, DAILY, First dose on Fri04/13/11 at 0900, Until Discontinued, If unable to [...] Engle RN)1700 (Given - Provider: Vishnu Mckoy RN)2047 (Given - Provider: Esme Gamboa RN) 0900 (Given - Provider: Vishnu Mckoy RN)1300 (Given - Provider: Cinthia Huerta RN)1700 (Given - Provider: Christopher Barnes, MARILYN)2101 (Given - Provider: Tawana Valenzuela RN) 0805 [...] Vishnu Mckoy, MARILYN)2200 (Given - Provider: Esme Gamboa, MARILYN) 1100 (Given - Provider: Vishnu Mckoy, RN)2234 (Given - Provider: Tawana Valenzuela RN) PRN Medication Order 04/14/2011 04/15/2011 04/16/2011 acetaminophen (TYLENOL) tablet 650 mg 650 mg, Oral, EVERY 4 HOURS PRN, Starting on Fri04/14/11 at 0106, Until Fri04/16/11 at 1506, Pain, Maximum dose of acetaminophen is 4000 mg from all sources in 24 hours., Routine 0200 (Given - Provider: Ginny Britton RN)2304 (Given - Provider: Esme Gamboa, MARILYN) 0606 (Given - Provider: Esme Gamboa RN)1623 [...] Tawana Valenzuela RN)0834 (Given - Provider: Leandra Monreal, MARILYN) HYDROmorphone (PF) (DILAUDID) 2 mg/mL injection 0.2 [...] doses, Starting on 04/14/11 at 0934, Until 04/15/11 at 2359, Pain, Routine 1134 (Given - [...] documented in this encounter Care Teams Project Systems Engineer Relationship Specialty Start Date End Date Arely Vickers MD PCP - General 04/12/11 09/15/16 documented as of this encounter
--- OUTSIDE RECORDS SUMMARY | 2024-01-25 13:43 | XMS_ITS | Encounter Summary ---
Author Organization [facility] Address [facility] [place] [address] Care Team Providers Care Building Construction Inspector Name Role Phone Rolando Zacarias MD Primary Care Provider [phone] Reason for Visit * Reason Comments Aneurysm (Aortic) Encounter Details Date Type Department Care Team (Late st Contact Info) Description 04/23/2011 3:20 PM EST Office [place] [phone] Steven Borges MD [facility] [place] [address] AAA (abdominal aortic aneurysm) without rupture (Primary [...] MD - 04/23/2011 3:28 PM EST Mr Thmopson returns after EVAR for symptomatic AAA. He [...] 02/02/2024 12:15 PM EDT Laboratory Appointment Lab [address] [address] 02/02/2024 2:[address] [place] [address] Pascale Barboza, RADHA [facility] [place] [address] 02/02/2024 2:30 PM EDT Office [place] [address] Erik Gill MD [facility] [place] [address] documented as of this encounter Visit Diagnoses Diagnosis AAA (abdominal aortic aneurysm) without rupture- Primary Abdominal aneurysm without mention of rupture documented in this encounter Care Teams Building Construction Inspector Relationship Specialty Start Date End Date Rolando Zacarias MD PCP - General 04/12/11 09/15/16 documented as of this encounter
--- OUTSIDE RECORDS SUMMARY | 2024-01-25 13:43 | XMS_ITS | Encounter Summary ---
Author Organization [facility] Address [facility] [place] [address] Care Team Providers Care State Attorney Name Role Phone Rolando Zacarias MD Primary Care Provider [phone] Reason for Visit * Reason Comments Follow-up AAA surveillance Encounter Details Date Type Department Care Team (Late st Contact Info) Description 10/06/2012 1:00 PM EDT Follow-[place] [phone] CLINIC, Steven Barahona MD [facility] [place] [address] AAA (abdominal aortic aneurysm) (Primary Dx) Discharge [...] of aortic aneurysm, using Cook Zenith Flex [id number] via right; ipsilateral extension with TFLE 16-56; [...] 02/02/2024 12:15 PM EDT Laboratory Appointment Lab [address] [phone] 02/02/2024 2:[address] Scan at [place] [phone] Pascale Barboza APRN [facility] [place] [address] 02/02/2024 2:30 PM EDT Office Visit [place] [address] Erik Gill MD [facility] [place] [address] documented as of this encounter Visit Diagnoses Diagnosis AAA (abdominal aortic aneurysm)- Primary Abdominal aneurysm without mention of rupture documented in this encounter Care Teams State Attorney Relationship Specialty Start Date End Date Rolando Zacarias MD PCP - General 04/12/11 09/15/16 documented as of this encounter
--- OUTSIDE RECORDS SUMMARY | 2024-01-25 13:43 | XMS_ITS | Encounter Summary ---
Author Organization [facility] Address [facility] [place] [address] Care Team Providers Care Elevator Worker Name Role Phone Rolando Moise MD Primary Care Provider Reason for Visit * Reason Comments Aneurysm (Aortic) Encounter Details Date Type Department Care Team (Late st Contact Info) Description 09/16/2016 2:00 PM EDT Office [place] [phone] Erik Gill MD [facility] [place] [address] Abdominal aortic aneurysm (AAA) without rupture Social [...] of aortic aneurysm, using Cook Zenith Flex [id number] via right; ipsilateral extension with TFLE 16-56; [...] 12:15 PM EDT Laboratory Appointment Lab [address] [place] [address] 02/02/2024 2:[address] [place] [phone] Pascale Barboza APRN [facility] [place] [address] 02/02/2024 2:30 PM EDT Office [place] [address] Erik Gill MD [facility] [place] [address] documented as of this encounter Visit Diagnoses Diagnosis Abdominal aortic aneurysm (AAA) without rupture documented in this encounter Care Teams Elevator Worker Relationship Specialty Start Date End Date Rolando Moise MD PCP - General Family Medicine 09/16/16 documented as of this encounter
--- OUTSIDE RECORDS SUMMARY | 2024-01-25 13:43 | XMS_ITS | Encounter Summary ---
Author Organization [facility] [place] [address] Care Team Providers Care Hot Plate Plywood Press Feeder Name Role Phone Rolando Moise MD Primary Care Provider [phone] Encounter Details Date Type Department Care Team (Latest Contact Info) Description 09/16/2016 9:51 AM EDT - 09/16/2016 11:59 PM EDT Hospital En[place] [address] Susana Snyder, RVT Abdominal aortic aneurysm (AAA) [...] mg by mouth 3 times daily. 02/03/2017 [place]-3 Fatty Acids-Vitamin E (FISH OIL) 1,000 mg [...] 02/02/2024 12:15 PM EDT Laboratory Appointment Lab [address] [phone] 02/02/2024 2:[address] Scan at [place] [phone] Pascale Barboza APRN [facility] [place] [address] 02/02/2024 2:30 PM EDT Office Visit [place] [address] Erik Gill MD [facility] [place] [address] documented as of this encounter Procedures Procedure Name Priority Date/Time Associated Diagnosis Comments ENDO-VASCULAR AAA REPAIR Routine 09/16/2016 10:07 AM EDT Abdominal aortic aneurysm (AAA) without rupture documented in this encounter Results * Endo-vascular AAA repair (09/16/2016 10:07 AM EDT) VB Text Report Department: Vascular Surgery Lab Patient: [id number] (CALI THOMPSON) CPT: 83019 ICD10: I71.4 Referring Physician: ACACIA BORGES ?? [...] rupture documented in this encounter Care Teams Hot Plate Plywood Press Feeder Relationship Specialty Start Date End Date Rolando Moise MD PCP - General Family Medicine 09/16/16 documented as of this encounter
--- OUTSIDE RECORDS SUMMARY | 2024-01-25 13:43 | XMS_ITS | Encounter Summary ---
Author Organization [facility] [place] [address] Care Team Providers Care Ice Puller Name Role Phone Rolando Moise MD Primary Care Provider [phone] Encounter Details Date Type Department Care Team (Late st Contact Info) Description 02/03/2017 External [place] [address] Jeanette Betancourt MD [facility] [place] [address] Social History Tobacco Use Types Packs/Day Years [...] 12:15 PM EDT Laboratory Appointment Lab [address] [place] [phone] 02/02/2024 2:[address] [place] [phone] Pascale Barboza APRN [facility] [place] [address] 02/02/2024 2:30 PM EDT Office Visit [place] [address] Erik Gill MD [facility] [place] [address] documented as of this encounter Procedures Procedure Name Priority Date/Time Associated Diagnosis Comments ECG SCAN Routine 02/03/2017 documented in this encounter Results * Scan Doc: ECG (02/03/2017) Jeanette Betancourt MD MEDIA MGR SCAN EXT O RDR/RSLT documented in this encounter Visit Diagnoses Not on filedocumented in this encounter Care Teams Ice Puller Relationship Specialty Start Date End Date Rolando Moise MD PCP - General Family Medicine 09/16/16 documented as of this encounter
--- OUTSIDE RECORDS SUMMARY | 2024-01-25 13:44 | XMS_ITS | Data Portability ---
Author Organization [place] [facility], [facility] [place] [address] Assessment Encounter Date Assessment Date Assessment LastModified by Organization Details LastModified Time 12/26/2023 12/26/2023 CCM did check in with patient. We will try and send DME request to [facility] for shower use. [facility] not [facility] ED and UC notes reviewed. The total time devoted to today's encounter, including both the qunb-ia-qssg time with the patient and/or family/caregi dina and pov-wafr-yj-f paulette time I personally spent is 45 minutes. Pt. will need Annual with DFE, Advanced Care Plan, and Diabetic Eye Exam, Pneumovax on F/U. Not available 12/26/2023 13:29:50 Plan of Treatment Reminders Order Date Submit Date Provider Last Modified By Organization Details Last Modified Time Details Appointments Nurse Visit 20 2023 11:30A M Not available Not available Not available Lab uric acid, serum or plasma [facility] [address] [place] [address] [place], [address], 01/09/2024 03:15:26 HbA1c (hemoglob in A1c), blood 2023 024 [facility] [address] [place] [address] [place], [address], 01/09/2024 03:15:26 Referral physical therapist referral 2023 024 FRANCISCO Brice PT, [address], [place], [address], 01/25/2024 04:04:19 Procedures None recorded. Surgeries None recorded. Imaging None recorded. Medication Orders prednison e 20 mg tablet 2023 024 [email or web address] [id number] [facility], [address] [place], [address], 01/21/2024 09:45:52 allopurin ol 100 mg tablet 2023 024 [facility], [address] [place] [address], [id number], 12/26/2023 13:51:04 tramadol 25 mg tablet 2023 024 [facility], [address] [place], [address], 01/21/2024 09:39:28 Novolog FlexPen U-100 Insulin aspart 100 unit/mL (3 mL) subcutane ous [address] [facility] [address] [facility], [address] [place] [address], [id number], 01/23/2024 10:23:21 insulin glargine (U-100) 100 unit/mL (3 mL) subcutane ous pen [address] [facility] [address] [facility], [address] [place] [address], [id number], 01/23/2024 10:23:21 Accu-Chek Rain Plus test strips [address] [facility], [address] [place] [address], [id number], 01/23/2024 10:23:21 Patient TargetsNo targets recorded. 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 You have now had over 3 episodes. 3 uric acid levels elevated. Your PCP did want you to start on allopurinol and could not get a hold of you. We discussed today. you have another gout flare, I suspect, of your right knee now, just like your left back in October. You have been given a prednisone rX for 5 days 40mg once daily for treatment. call if not helpful after 3 full days, or if worsening sooner. I would recommend you start the allopurinol as soon as you are done with the prednisone. However, you decline to start today. Discuss further with your PCP in 3 weeks if you wish. [email or web address] Not available 12/05/2023 16:12:42 01/21/2024 [id number] Stop amlodipine Cut Furosemide dose in half and make that 40 mg. Wear compression stockings [email or web address] Not available 01/21/2024 09:42:30 Reason for Referral Site Manager Referral for Ch ronic kidney disease stage 4 87 yo active male with DM, aFib, stage 4 CKD that is progressing Referring Physician: Arely Moise [facility], Encounter Date: 06/05/2023 Vascular Surgeon Referral fo r Abdominal aortic aneurysm without rupture 87 yo M with stage 4 CKD, h/o EVAR, recent non-enhanced CT at [facility] ED 05/17/22 after presenting with back pain showing widened sac in area of aneurysm, recommended contrast study for endoleak. Also thoracic aneurysm. Please direct imaging modality, further evaluation (MRA not approved by insurance). Referring Physician: Arely Moise [facility], Encounter Date: 06/13/2023 Orthopedic Surgeon Referral for Trigger finger of left hand Left thumb trigger finger bothering pt and he is requesting consult for possible surgical intervention. For scheduling, All appointments should be made through [facility]. Her phone number is Referring Physician: Maximino Lucero, [facility], Encounter Date: 09/25/2023 Orthopedic Surgeon Referral for Pain of left knee joint Referring pt. for eval/check on his left knee pain. Seen 09/08/2023 at , xray shows superior patella osteophyte, no joint space narrowing. Pt. with mild rubor of joint and quite ttp having me concerned for gout, pt. already on prednisone (day 4). Checking Uric acid, cbc, ESR today. Tick panel negative from urgent care. Referring Physician: Maximino Lucero, [facility], Encounter Date: 10/13/2023 Physical Therapist Referral for Acute low back pain Referring Physician: Maximino Lucero [facility], Encounter Date: 12/26/2023 Results Created Date Observation Date Name Description Value Unit Range Abnormal Flag Note LastModifiedBy Organization Detail LastModifiedTime 11/11/19 24 11/11/2023 ESR ESR 28 mm/HR 0-20 high Not Available [address] [place], [address] 11/11/2023 16:42:13 11/11/19 24 11/11/2023 URIC ACID uric acid 10.9 mg/dL 3.5-7. 2 high Not Available [address] [place], [address] 11/11/2023 16:55:15 12/21/19 24 12/21/2023 COMPL ETE BLOOD COUNT W/DIF F WBC 15.36 10_3/ uL 4.4-10 .8 high Not Available [address] [place], [address] 12/21/2023 09:17:19 12/21/19 24 12/21/2023 COMPL ETE BLOOD COUNT W/DIF F RBC 4.21 10_6/ uL 4.36-5 .78 low Not Available [address] [place], [address] 12/21/2023 09:17:19 12/21/19 24 12/21/2023 COMPL ETE BLOOD COUNT W/DIF F HGB 12.5 g/dL 13.5-1 7.5 low Not Available [address] [place], [address] 12/21/2023 09:17:19 12/21/19 24 12/21/2023 COMPL ETE BLOOD COUNT W/DIF F HCT 39.0 % 40.0-5 0.0 low Not Available [address] [place], [address] 12/21/2023 09:17:19 12/21/1912/21/2023 COMPL ETE BLOOD COUNT W/DIF F MCV 93 fL 80-95 normal Not Available Carlos [address] [place] [place], [address] 12/21/2023 09:17:19 12/21/19 24 12/21/2023 COMPL ETE BLOOD COUNT W/DIF F MCH 29.7 pg 27.0-3 3.0 normal Not Available [address] [place], [address] 12/21/2023 09:17:19 12/21/1912/21/2023 COMPL ETE BLOOD COUNT W/DIF F MCHC 32.1 % 32.0-3 6.0 normal Not Available [address] [place], [address] 12/21/2023 09:17:19 12/21/19 24 12/21/2023 COMPL ETE BLOOD COUNT W/DIF F RDW 12.5 % 11.8-1 4.1 normal Not Available [address] [place], [address] 12/21/2023 09:17:19 12/21/19 24 12/21/2023 COMPL ETE BLOOD COUNT W/DIF F platelet count 246 10_3/ uL 130-40 0 normal Not Available [address] [place], [address] 12/21/2023 09:17:19 12/21/19 24 12/21/2023 COMPL ETE BLOOD COUNT W/DIF F MPV 9.8 fL 8.0-11 .0 normal Not Available [address] [place], [address] 12/21/2023 09:17:19 12/21/19 24 12/21/2023 COMPL ETE BLOOD COUNT W/DIF F neutrophils % 78.5 % Not Available [address] [place], [address] 12/21/2023 09:17:19 12/21/19 24 12/21/2023 COMPL ETE BLOOD COUNT W/DIF F lymphocytes % 8.8 % Not Available [address] [place], [address] 12/21/2023 09:17:19 12/21/19 24 12/21/2023 COMPL ETE BLOOD COUNT W/DIF F monocytes % 10.4 % Not Available [address] [place], [address] 12/21/2023 09:17:19 12/21/19 24 12/21/2023 COMPL ETE BLOOD COUNT W/DIF F eosinophils % 1.5 % Not Available [address] [place], [address] 12/21/2023 09:17:19 12/21/1912/21/2023 COMPL ETE BLOOD COUNT W/DIF F basophils % 0.3 % Not Available [address] [place], [address] 12/21/2023 09:17:19 12/21/19 24 12/21/2023 COMPL ETE BLOOD COUNT W/DIF F immature grans % 0.5 % Not Available [address] [place], [address] 12/21/2023 09:17:19 12/21/19 24 12/21/2023 COMPL ETE BLOOD COUNT W/DIF F nucleated RBC 0.0 % 0.0-0. 3 normal Not Available [address] [place], [address] 12/21/2023 09:17:19 12/21/19 24 12/21/2023 COMPL ETE BLOOD COUNT W/DIF F absolute neutrophil count 12.06 10_3/ uL 1.2-6. 7 high Not Available [address] [place], [address] 12/21/2023 09:17:19 12/21/19 24 12/21/2023 COMPL ETE BLOOD COUNT W/DIF F absolute lymphocyte count 1.35 10_3/ uL 1.2-3. 4 normal Not Available [address] [place], [address] 12/21/2023 09:17:19 12/21/19 24 12/21/2023 COMPL ETE BLOOD COUNT W/DIF F absolute monocyte count 1.60 10_3/ uL 0.1-0. 8 high Not Available [address] [place], [address] 12/21/2023 09:17:19 12/21/19 24 12/21/2023 COMPL ETE BLOOD COUNT W/DIF F absolute eosinophil count 0.23 10_3/ uL 0.0-0. 7 normal Not Available [address] [place], [address] 12/21/2023 09:17:19 12/21/19 24 12/21/2023 COMPL ETE BLOOD COUNT W/DIF F absolute basophil count 0.05 10_3/ uL 0.0-0. 2 normal Not Available [address] [place], [address] 12/21/2023 09:17:19 12/21/19 24 12/21/2023 COMPL ETE BLOOD COUNT W/DIF F diff comment Diff Review ed Not Available Andrew patel [address] [place], [address] 12/21/2023 09:17:19 12/21/19 24 12/21/2023 COMPR EHENS NORA METAB OLIC PANEL calcium 8.6 mg/dL 8.5-10 .1 normal Not Available [address] [place], [address] 12/21/2023 08:58:19 12/21/19 24 12/21/2023 COMPR EHENS NORA METAB OLIC PANEL glucose 130 mg/dL 74-106 high Not Available Carlos francisco [address] [place], [address] 12/21/2023 08:58:19 12/21/19 24 12/21/2023 COMPR EHENS NORA METAB OLIC PANEL BUN 42 mg/dL 7-18 high Not Available Carlos francisco [address] [place], [address] 12/21/2023 08:58:19 12/21/19 24 12/21/2023 COMPR EHENS NORA METAB OLIC PANEL creatinine 3.4 mg/dL 0.70-1 .30 high Not Available [address] [place], [address] 12/21/2023 08:58:19 12/21/19 24 12/21/2023 COMPR EHENS NORA METAB OLIC PANEL estimated GFR 16.77 mL/min /1.73m 2 The eGFR is calcu lated from a serum creat inine using the CKD-E PI 2020 equat ion. Other varia bles requi red for the equat ion are gende r and age; this equat ion does not inclu de a race coeff icien t. This equat ion has simil ar overa ll perfo rmanc e to previ ous equat ions excep t value s may diffe r, in parti cular , in patie nts with highe r value s of eGFR and young er-ag ed adult s. Not Available [address] [place], [address] 12/21/2023 08:58:19 12/21/19 24 12/21/2023 COMPR EHENS NORA METAB OLIC PANEL total protein 6.4 g/dL 6.4-8. 2 normal Not Available [address] [place], [address] 12/21/2023 08:58:19 12/21/19 24 12/21/2023 COMPR EHENS NORA METAB OLIC PANEL albumin 2.3 g/dL 3.4-5. 0 low Not Available [address] [place], [address] 12/21/2023 08:58:19 12/21/19 24 12/21/2023 COMPR EHENS NORA METAB OLIC PANEL bilirubin, total 0.52 mg/dL 0.2-1. 0 normal Not Available [address] [place], [address] 12/21/2023 08:58:19 12/21/19 24 12/21/2023 COMPR EHENS NORA METAB OLIC PANEL alk phos 151 U/L 46-116 high Not Available [address] [place], [address] 12/21/2023 08:58:19 12/21/19 24 12/21/2023 COMPR EHENS NORA METAB OLIC PANEL sodium 139 mmol/ L 136-14 5 normal Not Available [address] [place], [address] 12/21/2023 08:58:19 12/21/19 24 12/21/2023 COMPR EHENS NORA METAB OLIC PANEL potassium 3.7 mmol/ L 3.5-5. 1 normal Not Available [address] [place], [address] 12/21/2023 08:58:19 12/21/19 24 12/21/2023 COMPR EHENS NORA METAB OLIC PANEL chloride 104 mmol/ L 98-107 normal Not Available [address] [place], [address] 12/21/2023 08:58:19 12/21/19 24 12/21/2023 COMPR EHENS NORA METAB OLIC PANEL CO2 24.4 mmol/ L 21.0-3 2.0 normal Not Available [address] [place], [address] 12/21/2023 08:58:19 12/21/19 24 12/21/2023 COMPR EHENS NORA METAB OLIC PANEL anion gap 10.6 mmol/ L 3-11 normal Not Available [address] [place], [address] 12/21/2023 08:58:19 12/21/19 24 12/21/2023 COMPR EHENS NORA METAB OLIC PANEL AST 27 U/L 15-37 normal Not Available Carlos francisco [address] [place], [address] 12/21/2023 08:58:19 12/21/19 24 12/21/2023 COMPR EHENS NORA METAB OLIC PANEL ALT 31 U/L 16-63 normal Not Available Carlos francisco [address] [place], [address] 12/21/2023 08:58:19 12/21/19 24 12/21/2023 LIPAS E lipase 32 U/L 16-77 normal Not Available Carlos francisco [address] [place], [address] 12/21/2023 08:58:19 12/21/19 24 12/21/2023 URINA LYSIS color Yellow yellow Not Available Carlos francisco [address] [place], [address] 12/21/2023 11:11:27 12/21/19 24 12/21/2023 URINA LYSIS clarity Clear clear Not Available Carlos francisco [address] [place], [address] 12/21/2023 11:11:27 12/21/19 24 12/21/2023 URINA LYSIS specific gravity 1.015 1.005- 1.025 normal Not Available [address] [place], [address] 12/21/2023 11:11:27 12/21/19 24 12/21/2023 URINA LYSIS pH 5.5 5-8 normal Not Available Carlos francisco [address] [place], [address] 12/21/2023 11:11:27 12/21/19 24 12/21/2023 URINA LYSIS leukocyte esterase Negati ve negati ve Not Available [address] [place], [address] 12/21/2023 11:11:27 12/21/19 24 12/21/2023 URINA LYSIS nitrite Negati ve negati ve Not Available [address] [place], [address] 12/21/2023 11:11:27 12/21/19 24 12/21/2023 URINA LYSIS protein Trace mg/dL neg-tr paulette Not Available [address] [place], [address] 12/21/2023 11:11:27 12/21/19 24 12/21/2023 URINA LYSIS glucose Negati ve mg/dL negati ve Not Available [address] [place], [address] 12/21/2023 11:11:27 12/21/19 24 12/21/2023 URINA LYSIS ketones Negati ve mg/dL negati ve Not Available [address] [place], [address] 12/21/2023 11:11:27 12/21/19 24 12/21/2023 URINA LYSIS urobilinogen 0.2 mg/dL up to 0.2 Not Available [address] [place], [address] 12/21/2023 11:11:27 12/21/19 24 12/21/2023 URINA LYSIS bilirubin Negati ve negati ve Not Available [address] [place], [address] 12/21/2023 11:11:27 12/21/19 24 12/21/2023 URINA LYSIS blood Trace- intact negati ve abnormal Not Available [address] [place], [address] 12/21/2023 11:11:27 12/21/19 24 12/21/2023 URINA LYSIS color Yellow yellow Not Available Carlos francisco [address] [place], [address] 12/21/2023 11:11:29 12/21/19 24 12/21/2023 URINA LYSIS clarity Clear clear Not Available Carlos francisco [address] [place], [address] 12/21/2023 11:11:29 12/21/19 24 12/21/2023 URINA LYSIS specific gravity 1.015 1.005- 1.025 normal Not Available [address] [place], [address] 12/21/2023 11:11:29 12/21/19 24 12/21/2023 URINA LYSIS pH 5.5 5-8 normal Not Available Carlos francisco [address] [place], [address] 12/21/2023 11:11:29 12/21/19 24 12/21/2023 URINA LYSIS leukocyte esterase Negati ve negati ve Not Available [address] [place], [address] 12/21/2023 11:11:29 12/21/19 24 12/21/2023 URINA LYSIS nitrite Negati ve negati ve Not Available [address] [place], [address] 12/21/2023 11:11:29 12/21/19 24 12/21/2023 URINA LYSIS protein Trace mg/dL neg-tr paulette Not Available [address] [place], [address] 12/21/2023 11:11:29 12/21/19 24 12/21/2023 URINA LYSIS glucose Negati ve mg/dL negati ve Not Available [address] [place], [address] 12/21/2023 11:11:29 12/21/19 24 12/21/2023 URINA LYSIS ketones Negati ve mg/dL negati ve Not Available [address] [place], [address] 12/21/2023 11:11:29 12/21/19 24 12/21/2023 URINA LYSIS urobilinogen 0.2 mg/dL up to 0.2 Not Available [address] [place], [address] 12/21/2023 11:11:29 12/21/19 24 12/21/2023 URINA LYSIS bilirubin Negati ve negati ve Not Available [address] [place], [address] 12/21/2023 11:11:29 12/21/19 24 12/21/2023 URINA LYSIS blood Trace- intact negati ve abnormal Not Available [address] [place], [address] 12/21/2023 11:11:29 12/21/19 24 12/21/2023 MICRO SCOPI C FINDI NGS WBC 0-2 hpf 0-5 Not Available Carlos francisco [address] [place] [place], [address] 12/21/2023 11:11:30 12/21/19 24 12/21/2023 MICRO SCOPI C FINDI NGS RBC 0-2 hpf 0-2 Not Available Carlos francisco [address] [place] [place], [address] 12/21/2023 11:11:30 12/21/19 24 12/21/2023 MICRO SCOPI C FINDI NGS epithelial cells Rare hpf negati ve Not Available [address] [place], [address] 12/21/2023 11:11:30 12/21/19 24 12/21/2023 MICRO SCOPI C FINDI NGS bacteria Rare hpf negati ve Not Available [address] [place], [address] 12/21/2023 11:11:30 12/21/19 24 12/21/2023 MICRO SCOPI C FINDI NGS crystals Negati ve hpf negati ve Not Available [address] [place], [address] 12/21/2023 11:11:30 12/21/19 24 12/21/2023 MICRO SCOPI C FINDI NGS mucus Negati ve negati ve Not Available [address] [place], [address] 12/21/2023 11:11:30 12/21/19 24 12/21/2023 MICRO SCOPI C FINDI NGS C S indicated? No Not Available [address] [place], [address] 12/21/2023 11:11:30 12/24/19 24 12/24/2023 COMPL ETE BLOOD COUNT W/DIF F WBC 14.39 10_3/ uL 4.4-10 .8 high Not Available [address] [place], [address] 12/24/2023 09:34:48 12/24/19 24 12/24/2023 COMPL ETE BLOOD COUNT W/DIF F RBC 4.45 10_6/ uL 4.36-5 .78 normal Not Available [address] [place], [address] 12/24/2023 09:34:48 12/24/19 24 12/24/2023 COMPL ETE BLOOD COUNT W/DIF F HGB 13.1 g/dL 13.5-1 7.5 low Not Available [address] [place], [address] 12/24/2023 09:34:48 12/24/19 24 12/24/2023 COMPL ETE BLOOD COUNT W/DIF F HCT 41.0 % 40.0-5 0.0 normal Not Available [address] [place], [address] 12/24/2023 09:34:48 12/24/19 24 12/24/2023 COMPL ETE BLOOD COUNT W/DIF F MCV 92 fL 80-95 normal Not Available Carlos [address] [place], [address] 12/24/2023 09:34:48 12/24/19 24 12/24/2023 COMPL ETE BLOOD COUNT W/DIF F MCH 29.4 pg 27.0-3 3.0 normal Not Available [address] [place], [address] 12/24/2023 09:34:48 12/24/19 24 12/24/2023 COMPL ETE BLOOD COUNT W/DIF F MCHC 32.0 % 32.0-3 6.0 normal Not Available [address] [place], [address] 12/24/2023 09:34:48 12/24/19 24 12/24/2023 COMPL ETE BLOOD COUNT W/DIF F RDW 12.3 % 11.8-1 4.1 normal Not Available [address] [place], [address] 12/24/2023 09:34:48 12/24/19 24 12/24/2023 COMPL ETE BLOOD COUNT W/DIF F platelet count 317 10_3/ uL 130-40 0 normal Not Available [address] [place], [address] 12/24/2023 09:34:48 12/24/19 24 12/24/2023 COMPL ETE BLOOD COUNT W/DIF F MPV 10.0 fL 8.0-11 .0 normal Not Available [address] [place], [address] 12/24/2023 09:34:48 12/24/19 24 12/24/2023 COMPL ETE BLOOD COUNT W/DIF F neutrophils % 74.9 % Not Available Laura pendleton [address] [place], [address] 12/24/2023 09:34:48 12/24/19 24 12/24/2023 COMPL ETE BLOOD COUNT W/DIF F lymphocytes % 11.3 % Not Available [address] [place], [address] 12/24/2023 09:34:48 12/24/19 24 12/24/2023 COMPL ETE BLOOD COUNT W/DIF F monocytes % 11.3 % Not Available [address] [place], [address] 12/24/2023 09:34:48 12/24/19 24 12/24/2023 COMPL ETE BLOOD COUNT W/DIF F eosinophils % 1.3 % Not Available [address] [place], [address] 12/24/2023 09:34:48 12/24/19 24 12/24/2023 COMPL ETE BLOOD COUNT W/DIF F basophils % 0.4 % Not Available [address] [place], [address] 12/24/2023 09:34:48 12/24/19 24 12/24/2023 COMPL ETE BLOOD COUNT W/DIF F immature grans % 0.8 % Not Available [address] [place], [address] 12/24/2023 09:34:48 12/24/19 24 12/24/2023 COMPL ETE BLOOD COUNT W/DIF F nucleated RBC 0.0 % 0.0-0. 3 normal Not Available [address] [place], [address] 12/24/2023 09:34:48 12/24/19 24 12/24/2023 COMPL ETE BLOOD COUNT W/DIF F absolute neutrophil count 10.78 10_3/ uL 1.2-6. 7 high Not Available [address] [place], [address] 12/24/2023 09:34:48 12/24/19 24 12/24/2023 COMPL ETE BLOOD COUNT W/DIF F absolute lymphocyte count 1.63 10_3/ uL 1.2-3. 4 normal Not Available [address] [place], [address] 12/24/2023 09:34:48 12/24/19 24 12/24/2023 COMPL ETE BLOOD COUNT W/DIF F absolute monocyte count 1.63 10_3/ uL 0.1-0. 8 high Not Available [address] [place], [address] 12/24/2023 09:34:48 12/24/19 24 12/24/2023 COMPL ETE BLOOD COUNT W/DIF F absolute eosinophil count 0.19 10_3/ uL 0.0-0. 7 normal Not Available [address] [place], [address] 12/24/2023 09:34:48 12/24/19 24 12/24/2023 COMPL ETE BLOOD COUNT W/DIF F absolute basophil count 0.06 10_3/ uL 0.0-0. 2 normal Not Available [address] [place], [address] 12/24/2023 09:34:48 12/24/19 24 12/24/2023 COMPL ETE BLOOD COUNT W/DIF F diff comment Agrees w/ Instru ment Not Available Andrew patel [address] [place], [address] 12/24/2023 09:34:48 12/24/19 24 12/24/2023 URINA LYSIS color Yellow yellow Not Available Carlos francisco [address] [place], [address] 12/24/2023 08:43:25 12/24/19 24 12/24/2023 URINA LYSIS clarity Clear clear Not Available Carlos francisco [address] [place], [address] 12/24/2023 08:43:25 12/24/19 24 12/24/2023 URINA LYSIS specific gravity 1.015 1.005- 1.025 normal Not Available [address] [place], [address] 12/24/2023 08:43:25 12/24/19 24 12/24/2023 URINA LYSIS pH 6.0 5-8 normal Not Available Carlos francisco [address] [place], [address] 12/24/2023 08:43:25 12/24/1912/24/2023 URINA LYSIS leukocyte esterase Negati ve negati ve Not Available [address] [place], [address] 12/24/2023 08:43:25 12/24/19 24 12/24/2023 URINA LYSIS nitrite Negati ve negati ve Not Available [address] [place], [address] 12/24/2023 08:43:25 12/24/19 24 12/24/2023 URINA LYSIS protein Negati ve mg/dL neg-tr paulette Not Available [address] [place], [address] 12/24/2023 08:43:25 12/24/19 24 12/24/2023 URINA LYSIS glucose Negati ve mg/dL negati ve Not Available [address] [place], [address] 12/24/2023 08:43:25 12/24/1912/24/2023 URINA LYSIS ketones Negati ve mg/dL negati ve Not Available [address] [place], [address] 12/24/2023 08:43:25 12/24/19 24 12/24/2023 URINA LYSIS urobilinogen 0.2 mg/dL up to 0.2 Not Available [address] [place], [address] 12/24/2023 08:43:25 12/24/19 24 12/24/2023 URINA LYSIS bilirubin Negati ve negati ve Not Available [address] [place], [address] 12/24/2023 08:43:25 12/24/19 24 12/24/2023 URINA LYSIS blood Negati ve negati ve Not Available [address] [place], [address] 12/24/2023 08:43:25 12/24/19 24 12/24/2023 PROTH ROMBI N TIME prothrombin time 11.4 sec 9.1-11 .1 high Not Available [address] [place], [address] 12/24/2023 08:57:37 12/24/19 24 12/24/2023 PROTH ROMBI N TIME INR 1.1 0.9-1. 1 normal Recom vamshi d INR thera peuti c range s for orall y admin ister ed drugs are as follo ws: -Alberto dard Inten sity 2.0 to 3.0 -High er Inten sity 3.0 to 4.5 Not Available [address] [place], [address] 12/24/2023 08:57:37 12/24/19 24 12/24/2023 PTT ACTIV ATED PTT activated 35.7 sec 23.6-3 2.8 high Hepar in Thera peuti c Range for PTT = 52-84 secon ds New Hepar in Thera peuti c Range 06/10 Not Available [address] [place], [address] 12/24/2023 08:57:38 12/24/19 24 12/24/2023 COMPR EHENS NORA METAB OLIC PANEL calcium 9.4 mg/dL 8.5-10 .1 normal Not Available [address] [place], [address] 12/24/2023 09:10:44 12/24/19 24 12/24/2023 COMPR EHENS NORA METAB OLIC PANEL glucose 107 mg/dL 74-106 high Not Available Carlos francisco [address] [place], [address] 12/24/2023 09:10:44 12/24/19 24 12/24/2023 COMPR EHENS NORA METAB OLIC PANEL BUN 41 mg/dL 7-18 high Not Available Carlos francisco [address] [place], [address] 12/24/2023 09:10:44 12/24/19 24 12/24/2023 COMPR EHENS NORA METAB OLIC PANEL creatinine 3.4 mg/dL 0.70-1 .30 high Not Available [address] [place], [address] 12/24/2023 09:10:44 12/24/19 24 12/24/2023 COMPR EHENS NORA METAB OLIC PANEL estimated GFR 16.77 mL/min /1.73m 2 The eGFR is calcu lated from a serum creat inine using the CKD-E PI 2020 equat ion. Other varia bles requi red for the equat ion are gende r and age; this equat ion does not inclu de a race coeff icien t. This equat ion has simil ar overa ll perfo rmanc e to previ ous equat ions excep t value s may diffe r, in parti cular , in patie nts with highe r value s of eGFR and young er-ag ed adult s. Not Available [address] [place], [address] 12/24/2023 09:10:44 12/24/19 24 12/24/2023 COMPR EHENS NORA METAB OLIC PANEL total protein 6.9 g/dL 6.4-8. 2 normal Not Available [address] [place], [address] 12/24/2023 09:10:44 12/24/19 24 12/24/2023 COMPR EHENS NORA METAB OLIC PANEL albumin 2.3 g/dL 3.4-5. 0 low Not Available [address] [place], [address] 12/24/2023 09:10:44 12/24/19 24 12/24/2023 COMPR EHENS NORA METAB OLIC PANEL bilirubin, total 1.01 mg/dL 0.2-1. 0 high Not Available [address] [place], [address] 12/24/2023 09:10:44 12/24/19 24 12/24/2023 COMPR EHENS NORA METAB OLIC PANEL alk phos 147 U/L 46-116 high Not Available [address] [place], [address] 12/24/2023 09:10:44 12/24/19 24 12/24/2023 COMPR EHENS NORA METAB OLIC PANEL sodium 140 mmol/ L 136-14 5 normal Not Available [address] [place], [address] 12/24/2023 09:10:44 12/24/19 24 12/24/2023 COMPR EHENS NORA METAB OLIC PANEL potassium 3.8 mmol/ L 3.5-5. 1 normal Not Available [address] [place], [address] 12/24/2023 09:10:44 12/24/19 24 12/24/2023 COMPR EHENS NORA METAB OLIC PANEL chloride 103 mmol/ L 98-107 normal Not Available [address] [place], [address] 12/24/2023 09:10:44 12/24/19 24 12/24/2023 COMPR EHENS NORA METAB OLIC PANEL CO2 27.2 mmol/ L 21.0-3 2.0 normal Not Available [address] [place], [address] 12/24/2023 09:10:44 12/24/19 24 12/24/2023 COMPR EHENS NORA METAB OLIC PANEL anion gap 9.8 mmol/ L 3-11 normal Not Available [address] [place], [address] 12/24/2023 09:10:44 12/24/19 24 12/24/2023 COMPR EHENS NORA METAB OLIC PANEL AST 25 U/L 15-37 normal Not Available Carlos francisco [address] [place], [address] 12/24/2023 09:10:44 12/24/19 24 12/24/2023 COMPR EHENS NORA METAB OLIC PANEL ALT 30 U/L 16-63 normal Not Available Carlos [address] [place], [address] 12/24/2023 09:10:44 12/24/19 24 12/24/2023 MAGNE SIUM magnesium 2.1 mg/dL 1.8-2. 4 normal Not Available [address] [place], [address] 12/24/2023 09:10:44 12/24/1912/24/2023 TSH (W/RE F FT4) TSH (w/ref FT4) 1.31 uIU/m L 0.36-3 .74 normal Not Available [address] [place], [address] 12/24/2023 09:10:45 12/24/1912/24/2023 LIPAS E lipase 15 U/L 16-77 low Not Available Carlos francisco [address] [place], [address] 12/24/2023 09:10:45 12/28/1912/28/2023 LACTA TE lactate 1.0 mmol/ L 0.6-1. 4 normal Not Available [address] [place], [address] 12/28/2023 07:39:51 12/28/1912/28/2023 COMPL ETE BLOOD COUNT W/DIF F WBC 11.47 10_3/ uL 4.4-10 .8 high Not Available [address] [place], [address] 12/28/2023 07:43:52 12/28/1912/28/2023 COMPL ETE BLOOD COUNT W/DIF F RBC 4.01 10_6/ uL 4.36-5 .78 low Not Available [address] [place], [address] 12/28/2023 07:43:52 12/28/19 24 12/28/2023 COMPL ETE BLOOD COUNT W/DIF F HGB 11.7 g/dL 13.5-1 7.5 low Not Available [address] [place], [address] 12/28/2023 07:43:52 12/28/1912/28/2023 COMPL ETE BLOOD COUNT W/DIF F HCT 37.1 % 40.0-5 0.0 low Not Available [address] [place], [address] 12/28/2023 07:43:52 12/28/19 24 12/28/2023 COMPL ETE BLOOD COUNT W/DIF F MCV 93 fL 80-95 normal Not Available [address] [place], [address] 12/28/2023 07:43:52 12/28/1912/28/2023 COMPL ETE BLOOD COUNT W/DIF F MCH 29.2 pg 27.0-3 3.0 normal Not Available [address] [place], [address] 12/28/2023 07:43:52 12/28/1912/28/2023 COMPL ETE BLOOD COUNT W/DIF F MCHC 31.5 % 32.0-3 6.0 low Not Available [address] [place], [address] 12/28/2023 07:43:52 12/28/19 24 12/28/2023 COMPL ETE BLOOD COUNT W/DIF F RDW 12.3 % 11.8-1 4.1 normal Not Available [address] [place], [address] 12/28/2023 07:43:52 12/28/1912/28/2023 COMPL ETE BLOOD COUNT W/DIF F platelet count 357 10_3/ uL 130-40 0 normal Not Available [address] [place], [address] 12/28/2023 07:43:52 12/28/1912/28/2023 COMPL ETE BLOOD COUNT W/DIF F MPV 9.6 fL 8.0-11 .0 normal Not Available [address] [place], [address] 12/28/2023 07:43:52 12/28/1912/28/2023 COMPL ETE BLOOD COUNT W/DIF F neutrophils % 68.7 % Not Available [address] [place], [address] 12/28/2023 07:43:52 12/28/19 24 12/28/2023 COMPL ETE BLOOD COUNT W/DIF F lymphocytes % 15.7 % Not Available [address] [place], [address] 12/28/2023 07:43:52 12/28/1912/28/2023 COMPL ETE BLOOD COUNT W/DIF F monocytes % 12.8 % Not Available [address] [place], [address] 12/28/2023 07:43:52 12/28/1912/28/2023 COMPL ETE BLOOD COUNT W/DIF F eosinophils % 1.9 % Not Available [address] [place], [address] 12/28/2023 07:43:52 12/28/1912/28/2023 COMPL ETE BLOOD COUNT W/DIF F basophils % 0.3 % Not Available [address] [place], [address] 12/28/2023 07:43:52 12/28/1912/28/2023 COMPL ETE BLOOD COUNT W/DIF F immature grans % 0.6 % Not Available [address] [place], [address] 12/28/2023 07:43:52 12/28/1912/28/2023 COMPL ETE BLOOD COUNT W/DIF F nucleated RBC 0.0 % 0.0-0. 3 normal Not Available [address] [place], [address] 12/28/2023 07:43:52 12/28/1912/28/2023 COMPL ETE BLOOD COUNT W/DIF F absolute neutrophil count 7.88 10_3/ uL 1.2-6. 7 high Not Available [address] [place], [address] 12/28/2023 07:43:52 12/28/1912/28/2023 COMPL ETE BLOOD COUNT W/DIF F absolute lymphocyte count 1.80 10_3/ uL 1.2-3. 4 normal Not Available [address] [place], [address] 12/28/2023 07:43:52 12/28/19 24 12/28/2023 COMPL ETE BLOOD COUNT W/DIF F absolute monocyte count 1.47 10_3/ uL 0.1-0. 8 high Not Available [address] [place], [address] 12/28/2023 07:43:52 12/28/19 24 12/28/2023 COMPL ETE BLOOD COUNT W/DIF F absolute eosinophil count 0.22 10_3/ uL 0.0-0. 7 normal Not Available [address] [place], [address] 12/28/2023 07:43:52 12/28/19 24 12/28/2023 COMPL ETE BLOOD COUNT W/DIF F absolute basophil count 0.03 10_3/ uL 0.0-0. 2 normal Not Available [address] [place], [address] 12/28/2023 07:43:52 12/28/19 24 12/28/2023 COMPR EHENS NORA METAB OLIC PANEL calcium 9.3 mg/dL 8.5-10 .1 normal Not Available [address] [place], [address] 12/28/2023 08:00:54 12/28/1912/28/2023 COMPR EHENS NORA METAB OLIC PANEL glucose 107 mg/dL 74-106 high Not Available Carlos francisco [address] [place], [address] 12/28/2023 08:00:54 12/28/1912/28/2023 COMPR EHENS NORA METAB OLIC PANEL BUN 40 mg/dL 7-18 high Not Available Carlos francisco [address] [place], [address] 12/28/2023 08:00:54 12/28/1912/28/2023 COMPR EHENS NORA METAB OLIC PANEL creatinine 3.7 mg/dL 0.70-1 .30 panic high Criti juan manuel value repor sheri to and mayito ack from [employer] at 0758 12/27 by LAB.M CGD Not Available [address] [place], [address] 12/28/2023 08:00:54 12/28/19 12/28/2023 COMPR EHENS NORA METAB OLIC PANEL estimated GFR 15.16 mL/min /1.73m 2 The eGFR is calcu lated from a serum creat inine using the CKD-E PI 2020 equat ion. Other varia bles requi red for the equat ion are gende r and age; this equat ion does not inclu de a race coeff icien t. This equat ion has simil ar overa ll perfo rmanc e to previ ous equat ions excep t value s may diffe r, in parti cular , in patie nts with highe r value s of eGFR and young er-ag ed adult s. Not Available [address] [place], [address] 12/28/2023 08:00:54 12/28/19 24 12/28/2023 COMPR EHENS NORA METAB OLIC PANEL total protein 6.7 g/dL 6.4-8. 2 normal Not Available [address] [place], [address] 12/28/2023 08:00:54 12/28/19 24 12/28/2023 COMPR EHENS NROA METAB OLIC PANEL albumin 2.1 g/dL 3.4-5. 0 low Not Available [address] [place], [address] 12/28/2023 08:00:54 12/28/19 24 12/28/2023 COMPR EHENS NORA METAB OLIC PANEL bilirubin, total 0.53 mg/dL 0.2-1. 0 normal Not Available [address] [place], [address] 12/28/2023 08:00:54 12/28/19 24 12/28/2023 COMPR EHENS NORA METAB OLIC PANEL alk phos 142 U/L 46-116 high Not Available [address] [place], [address] 12/28/2023 08:00:54 12/28/19 24 12/28/2023 COMPR EHENS NORA METAB OLIC PANEL sodium 139 mmol/ L 136-14 5 normal Not Available [address] [place], [address] 12/28/2023 08:00:54 12/28/19 24 12/28/2023 COMPR EHENS NORA METAB OLIC PANEL potassium 4.3 mmol/ L 3.5-5. 1 normal Not Available [address] [place], [address] 12/28/2023 08:00:54 12/28/19 24 12/28/2023 COMPR EHENS NORA METAB OLIC PANEL chloride 104 mmol/ L 98-107 normal Not Available [address] [place], [address] 12/28/2023 08:00:54 12/28/19 24 12/28/2023 COMPR EHENS NORA METAB OLIC PANEL CO2 28.2 mmol/ L 21.0-3 2.0 normal Not Available [address] [place], [address] 12/28/2023 08:00:54 12/28/19 24 12/28/2023 COMPR EHENS NORA METAB OLIC PANEL anion gap 6.8 mmol/ L 3-11 normal Not Available [address] [place], [address] 12/28/2023 08:00:54 12/28/19 24 12/28/2023 COMPR EHENS NORA METAB OLIC PANEL AST 23 U/L 15-37 normal Not Available Carlos francisco [address] [place], [address] 12/28/2023 08:00:54 12/28/19 24 12/28/2023 COMPR EHENS NORA METAB OLIC PANEL ALT 24 U/L 16-63 normal Not Available Carlos francisco [address] [place], [address] 12/28/2023 08:00:54 12/28/19 24 12/28/2023 MAGNE SIUM magnesium 2.2 mg/dL 1.8-2. 4 normal Not Available [address] [place], [address] 12/28/2023 08:00:55 12/28/19 24 12/28/2023 LIPAS E lipase 25 U/L 16-77 normal Not Available Carlos francisco [address] [place], [address] 12/28/2023 08:00:55 12/28/1912/28/2023 TROPO SARAH I troponin I < 50 NG/L < or =60 Not Available [address] [place], [address] 12/28/2023 08:00:56 12/28/1912/28/2023 URINA LYSIS color Yellow yellow Not Available Carlos francisco [address] [place], [address] 12/28/2023 09:39:00 12/28/1912/28/2023 URINA LYSIS clarity Clear clear Not Available Carlos francisco [address] [place], [address] 12/28/2023 09:39:00 12/28/19 24 12/28/2023 URINA LYSIS specific gravity 1.015 1.005- 1.025 normal Not Available [address] [place], [address] 12/28/2023 09:39:00 12/28/19 24 12/28/2023 URINA LYSIS pH 7.0 5-8 normal Not Available Carlos francisco [address] [place], [address] 12/28/2023 09:39:00 12/28/1912/28/2023 URINA LYSIS leukocyte esterase Negati ve negati ve Not Available [address] [place], [address] 12/28/2023 09:39:00 12/28/1912/28/2023 URINA LYSIS nitrite Negati ve negati ve Not Available [address] [place], [address] 12/28/2023 09:39:00 12/28/1912/28/2023 URINA LYSIS protein Negati ve mg/dL neg-tr paulette Not Available [address] [place], [address] 12/28/2023 09:39:00 12/28/19 24 12/28/2023 URINA LYSIS glucose Negati ve mg/dL negati ve Not Available [address] [place], [address] 12/28/2023 09:39:00 12/28/1912/28/2023 URINA LYSIS ketones Negati ve mg/dL negati ve Not Available [address] [place], [address] 12/28/2023 09:39:00 12/28/19 24 12/28/2023 URINA LYSIS urobilinogen 0.2 mg/dL up to 0.2 Not Available [address] [place], [address] 12/28/2023 09:39:00 12/28/1912/28/2023 URINA LYSIS bilirubin Negati ve negati ve Not Available [address] [place], [address] 12/28/2023 09:39:00 12/28/1912/28/2023 URINA LYSIS blood Negati ve negati ve Not Available [address] [place], [address] 12/28/2023 09:39:00 01/08/2001/08/2024 VENOU S BLOOD GAS pH (venous) 7.39 7.31-7 .41 normal Not Available [address] [place], [address] 01/08/2024 02:16:04 01/08/20 24 01/08/2024 VENOU S BLOOD GAS pCO2 (venous) 46 mmHg 41-51 normal Not Available [address] [place], [address] 01/08/2024 02:16:04 01/08/2001/08/2024 VENOU S BLOOD GAS pO2 (venous) 55 mmHg Not Available [address] [place], [address] 01/08/2024 02:16:04 01/08/20 24 01/08/2024 VENOU S BLOOD GAS TCO2 (venous) 25 mmol/ L 24-29 normal Not Available [address] [place], [address] 01/08/2024 02:16:04 01/08/20 24 01/08/2024 VENOU S BLOOD GAS HCO3 (venous) 28 mmol/ L 23-28 normal Not Available [address] [place], [address] 01/08/2024 02:16:04 01/08/20 24 01/08/2024 VENOU S BLOOD GAS BE (venous) 3 mmol/ L -2-3 normal Not Available [address] [place], [address] 01/08/2024 02:16:04 01/08/20 24 01/08/2024 VENOU S BLOOD GAS O2 sat (venous) 89 % Not Available [facility] [address] [place], [address] 01/08/2024 02:16:04 01/08/20 24 01/08/2024 LACTA TE lactate 1.2 mmol/ L 0.6-1. 4 normal Not Available [address] [place], [address] 01/08/2024 02:16:04 01/08/20 24 01/08/2024 COMPR EHENS NORA METAB OLIC PANEL calcium 9.3 mg/dL 8.5-10 .1 normal Not Available [address] [place], [address] 01/08/2024 02:53:06 01/08/20 24 01/08/2024 COMPR EHENS NORA METAB OLIC PANEL glucose 116 mg/dL 74-106 high Not Available Carlos francisco [address] [place], [address] 01/08/2024 02:53:06 01/08/20 24 01/08/2024 COMPR EHENS NORA METAB OLIC PANEL BUN 30 mg/dL 7-18 high Not Available Carlos francisco [address] [place], [address] 01/08/2024 02:53:06 01/08/20 24 01/08/2024 COMPR EHENS NORA METAB OLIC PANEL creatinine 4.1 mg/dL 0.70-1 .30 panic high Criti juan manuel value repor sheri to and readb ack from IDANIA DAVEY at 0249 01/07 by LAB.O LAP Not Available [address] [place], [address] 01/08/2024 02:53:06 01/08/20 24 01/08/2024 COMPR EHENS NORA METAB OLIC PANEL estimated GFR 13.40 mL/min /1.73m 2 The eGFR is calcu lated from a serum creat inine using the CKD-E PI 2020 equat ion. Other varia bles requi red for the equat ion are gende r and age; this equat ion does not inclu de a race coeff icien t. This equat ion has simil ar overa ll perfo rmanc e to previ ous equat ions excep t value s may diffe r, in parti cular , in patie nts with highe r value s of eGFR and young er-ag ed adult s. Not Available [address] [place], [address] 01/08/2024 02:53:06 01/08/20 24 01/08/2024 COMPR EHENS NORA METAB OLIC PANEL total protein 7.0 g/dL 6.4-8. 2 normal Not Available [address] [place], [address] 01/08/2024 02:53:06 01/08/20 24 01/08/2024 COMPR EHENS NORA METAB OLIC PANEL albumin 2.3 g/dL 3.4-5. 0 low Not Available [address] [place], [address] 01/08/2024 02:53:06 01/08/20 24 01/08/2024 COMPR EHENS NORA METAB OLIC PANEL bilirubin, total 0.42 mg/dL 0.2-1. 0 normal Not Available [address] [place], [address] 01/08/2024 02:53:06 01/08/20 24 01/08/2024 COMPR EHENS NORA METAB OLIC PANEL alk phos 130 U/L 46-116 high Not Available [address] [place], [address] 01/08/2024 02:53:06 01/08/20 24 01/08/2024 COMPR EHENS NORA METAB OLIC PANEL sodium 139 mmol/ L 136-14 5 normal Not Available [address] [place], [address] 01/08/2024 02:53:06 01/08/20 24 01/08/2024 COMPR EHENS NORA METAB OLIC PANEL potassium 3.5 mmol/ L 3.5-5. 1 normal Not Available [address] [place], [address] 01/08/2024 02:53:06 01/08/20 24 01/08/2024 COMPR EHENS NORA METAB OLIC PANEL chloride 105 mmol/ L 98-107 normal Not Available [address] [place], [address] 01/08/2024 02:53:06 01/08/20 24 01/08/2024 COMPR EHENS NORA METAB OLIC PANEL CO2 28.4 mmol/ L 21.0-3 2.0 normal Not Available [address] [place], [address] 01/08/2024 02:53:06 01/08/20 24 01/08/2024 COMPR EHENS NORA METAB OLIC PANEL anion gap 5.6 mmol/ L 3-11 normal Not Available [address] [place], [address] 01/08/2024 02:53:06 01/08/20 24 01/08/2024 COMPR EHENS NORA METAB OLIC PANEL AST 21 U/L 15-37 normal Not Available Carlos [address] [place], [address] 01/08/2024 02:53:06 01/08/20 24 01/08/2024 COMPR EHENS NORA METAB OLIC PANEL ALT 20 U/L 16-63 normal Not Available [address] [place], [address] 01/08/2024 02:53:06 01/08/20 24 01/08/2024 ETHYL ALCOH OL ethyl alcohol < 3.0 mg/dL <10 ETOH Refer ence Range = <10 mg/dL Legal Limit of Intox icati on is 80 mg/dL This test is inten ded only for Medic al purpo ses. Divid e resul t by 1000 to conve rt to %(w/v ) Not Available [address] [place], [address] 01/08/2024 02:53:06 01/08/20 24 01/08/2024 TROPO SARAH I troponin I < 50 NG/L < or =60 Not Available [address] [place], [address] 01/08/2024 02:53:07 01/08/20 24 01/08/2024 MAGNE SIUM magnesium 2.1 mg/dL 1.8-2. 4 normal Not Available [address] [place], [address] 01/08/2024 02:55:05 01/08/20 24 01/08/2024 TROPO SARAH I troponin I < 50 NG/L < or =60 Not Available [address] [place], [address] 01/08/2024 02:55:07 01/08/20 24 01/08/2024 PROTH ROMBI N TIME prothrombin time 11.7 sec 9.1-11 .1 high Not Available [address] [place], [address] 01/08/2024 02:57:07 01/08/20 24 01/08/2024 PROTH ROMBI N TIME INR 1.2 0.9-1. 1 high Recom vamshi d INR thera peuti c range s for orall y admin ister ed drugs are as follo ws: -Alberto dard Inten sity 2.0 to 3.0 -High er Inten sity 3.0 to 4.5 Not Available [address] [place], [address] 01/08/2024 02:57:07 01/08/20 24 01/08/2024 PTT ACTIV ATED PTT activated 33.6 sec 23.6-3 2.8 high Hepar in Thera peuti c Range for PTT = 52-84 secon ds New Hepar in Thera peuti c Range 06/10 Not Available [address] [place], [address] 01/08/2024 02:57:07 01/08/20 24 01/08/2024 COMPL ETE BLOOD COUNT W/DIF F WBC 13.96 10_3/ uL 4.4-10 .8 high Not Available [address] [place], [address] 01/08/2024 03:02:07 01/08/20 24 01/08/2024 COMPL ETE BLOOD COUNT W/DIF F RBC 3.98 10_6/ uL 4.36-5 .78 low Not Available [address] [place], [address] 01/08/2024 03:02:07 01/08/20 24 01/08/2024 COMPL ETE BLOOD COUNT W/DIF F HGB 11.6 g/dL 13.5-1 7.5 low Not Available [address] [place], [address] 01/08/2024 03:02:07 01/08/20 24 01/08/2024 COMPL ETE BLOOD COUNT W/DIF F HCT 36.9 % 40.0-5 0.0 low Not Available [address] [place], [address] 01/08/2024 03:02:07 01/08/20 24 01/08/2024 COMPL ETE BLOOD COUNT W/DIF F MCV 93 fL 80-95 normal Not Available Carlos francisco [address] [place], [address] 01/08/2024 03:02:07 01/08/20 24 01/08/2024 COMPL ETE BLOOD COUNT W/DIF F MCH 29.1 pg 27.0-3 3.0 normal Not Available [address] [place], [address] 01/08/2024 03:02:07 01/08/20 24 01/08/2024 COMPL ETE BLOOD COUNT W/DIF F MCHC 31.4 % 32.0-3 6.0 low Not Available [address] [place], [address] 01/08/2024 03:02:07 01/08/20 24 01/08/2024 COMPL ETE BLOOD COUNT W/DIF F RDW 13.0 % 11.8-1 4.1 normal Not Available [address] [place], [address] 01/08/2024 03:02:07 01/08/20 24 01/08/2024 COMPL ETE BLOOD COUNT W/DIF F platelet count 286 10_3/ uL 130-40 0 normal Not Available [address] [place], [address] 01/08/2024 03:02:07 01/08/20 24 01/08/2024 COMPL ETE BLOOD COUNT W/DIF F MPV 9.3 fL 8.0-11 .0 normal Not Available [address] [place], [address] 01/08/2024 03:02:07 01/08/20 24 01/08/2024 COMPL ETE BLOOD COUNT W/DIF F neutrophils % 76.1 % Not Available [address] [place], [address] 01/08/2024 03:02:07 01/08/20 24 01/08/2024 COMPL ETE BLOOD COUNT W/DIF F lymphocytes % 10.6 % Not Available [address] [place], [address] 01/08/2024 03:02:07 01/08/20 24 01/08/2024 COMPL ETE BLOOD COUNT W/DIF F monocytes % 11.0 % Agree s with the instr ument Not Available [address] [place], [address] 01/08/2024 03:02:07 01/08/20 24 01/08/2024 COMPL ETE BLOOD COUNT W/DIF F eosinophils % 1.0 % Not Available [address] [place], [address] 01/08/2024 03:02:07 01/08/20 24 01/08/2024 COMPL ETE BLOOD COUNT W/DIF F basophils % 0.3 % Not Available [address] [place], [address] 01/08/2024 03:02:07 01/08/20 24 01/08/2024 COMPL ETE BLOOD COUNT W/DIF F immature grans % 1.0 % Not Available [address] [place], [address] 01/08/2024 03:02:07 01/08/20 24 01/08/2024 COMPL ETE BLOOD COUNT W/DIF F nucleated RBC 0.0 % 0.0-0. 3 normal Not Available [address] [place], [address] 01/08/2024 03:02:07 01/08/20 24 01/08/2024 COMPL ETE BLOOD COUNT W/DIF F absolute neutrophil count 10.62 10_3/ uL 1.2-6. 7 high Not Available [address] [place], [address] 01/08/2024 03:02:07 01/08/20 24 01/08/2024 COMPL ETE BLOOD COUNT W/DIF F absolute lymphocyte count 1.48 10_3/ uL 1.2-3. 4 normal Not Available [address] [place], [address] 01/08/2024 03:02:07 01/08/20 24 01/08/2024 COMPL ETE BLOOD COUNT W/DIF F absolute monocyte count 1.54 10_3/ uL 0.1-0. 8 high Not Available [address] [place], [address] 01/08/2024 03:02:07 01/08/20 24 01/08/2024 COMPL ETE BLOOD COUNT W/DIF F absolute eosinophil count 0.14 10_3/ uL 0.0-0. 7 normal Not Available [address] [place], [address] 01/08/2024 03:02:07 01/08/20 24 01/08/2024 COMPL ETE BLOOD COUNT W/DIF F absolute basophil count 0.04 10_3/ uL 0.0-0. 2 normal Not Available [address] [place], [address] 01/08/2024 03:02:07 01/08/20 24 01/08/2024 NT-FL OBNP nt-probnp 316 pg/mL <300 high NT-pr oBNP value s <300 pg/mL have a 98% negat nora predi ctive value for exclu ding acute conge stive heart failu re (CHF) . NT-pr oBNP value s >450 pg/mL are consi stent with CHF in adult s <50 years of age. A diagn ostic cut-o ff of 900 pg/mL has been sugge sted in adult s >50 years of age in the absen ce of renal failu re. A cut-o ff of 1200 pg/mL for patie nts with an eGFR less than 60 yield s a diagn ostic sensi tivit y and speci ficit y of 89% and 72% for acute conge stive failu re. NOTE: Supra -phys iolog ic doses of Bioti n(B7) may cause false negat nora resul ts. Not Available [address] [place] [place], [address] 01/08/2024 03:04:07 01/08/20 24 01/08/2024 ACETA MINOP HEN acetaminophe n < 2 ug/mL 10-30 Not Available Laura pendleton [address] [place], [address] 01/08/2024 03:23:07 01/08/20 24 01/08/2024 SALIC YLATE salicylate < 2.8 mg/dL <2.8 Thera peuti c Range is 2.8-2 0.0 mg/dL Not Available [address] [place], [address] 01/08/2024 03:23:08 01/08/20 24 01/08/2024 URINA LYSIS color Yellow yellow Not Available Carlos francisco [address] [place], [address] 01/08/2024 04:35:11 01/08/20 24 01/08/2024 URINA LYSIS clarity Clear clear Not Available Carlos francisco [address] [place], [address] 01/08/2024 04:35:11 01/08/20 24 01/08/2024 URINA LYSIS specific gravity 1.015 1.005- 1.025 normal Not Available [address] [place], [address] 01/08/2024 04:35:11 01/08/20 24 01/08/2024 URINA LYSIS pH 6.0 5-8 normal Not Available Carlos francisco [address] [place], [address] 01/08/2024 04:35:11 01/08/20 24 01/08/2024 URINA LYSIS leukocyte esterase Negati ve negati ve Not Available [address] [place], [address] 01/08/2024 04:35:11 01/08/20 24 01/08/2024 URINA LYSIS nitrite Negati ve negati ve Not Available [address] [place], [address] 01/08/2024 04:35:11 01/08/20 24 01/08/2024 URINA LYSIS protein Negati ve mg/dL neg-tr paulette Not Available [address] [place], [address] 01/08/2024 04:35:11 01/08/20 24 01/08/2024 URINA LYSIS glucose Negati ve mg/dL negati ve Not Available [address] [place], [address] 01/08/2024 04:35:11 01/08/20 24 01/08/2024 URINA LYSIS ketones Negati ve mg/dL negati ve Not Available [address] [place], [address] 01/08/2024 04:35:11 01/08/20 24 01/08/2024 URINA LYSIS urobilinogen 0.2 mg/dL up to 0.2 Not Available [address] [place], [address] 01/08/2024 04:35:11 01/08/20 24 01/08/2024 URINA LYSIS bilirubin Negati ve negati ve Not Available [address] [place], [address] 01/08/2024 04:35:11 01/08/20 24 01/08/2024 URINA LYSIS blood Negati ve negati ve Not Available [address] [place], [address] 01/08/2024 04:35:11 01/08/20 24 01/08/2024 TROPO SARAH I troponin I < 50 NG/L < or =60 Not Available [address] [place], [address] 01/08/2024 05:57:12 01/08/20 24 01/09/2024 BLOOD CULTU RE ( AGE => 11 YRS) blood culture ( age => 11 yrs) Blood Cultu re ( Age => 11 Yrs) NO GROWT H 24 HOURS Not Available [address] [place], [address] 01/09/2024 04:56:07 01/08/20 24 01/09/2024 BLOOD CULTU RE ( AGE => 11 YRS) blood culture ( age => 11 yrs) Blood Cultu re ( Age => 11 Yrs) NO GROWT H 24 HOURS Not Available [address] [place], [address] 01/09/2024 05:05:08 01/08/20 24 01/09/2024 URINE CULTU RE urine culture Urine Cultu re Day 1 Resul t NO GROWT H 24 HOURS Not Available [address] [place], [address] 01/09/2024 08:34:34 01/08/20 24 01/10/2024 BLOOD CULTU RE ( AGE => 11 YRS) blood culture ( age => 11 yrs) Blood Cultu re ( Age => 11 Yrs) NO GROWT H 48 HOURS Not Available [address] [place], [address] 01/10/2024 04:57:02 01/08/20 24 01/10/2024 BLOOD CULTU RE ( AGE => 11 YRS) blood culture ( age => 11 yrs) Blood Cultu re ( Age => 11 Yrs) NO GROWT H 48 HOURS Not Available [address] [place], [address] 01/10/2024 05:07:03 01/08/20 24 01/10/2024 URINE CULTU RE urine culture Urine Cultu re Day 1 Resul t NO GROWT H 24 HOURS Day 2 Resul t NO GROWT H 48 HOURS Not Available [address] [place], [address] 01/10/2024 08:16:14 01/08/20 24 01/11/2024 BLOOD CULTU RE ( AGE => 11 YRS) blood culture ( age => 11 yrs) Blood Cultu re ( Age => 11 Yrs) NO GROWT H 72 HOURS Not Available [address] [place], [address] 01/11/2024 04:55:45 01/08/20 24 01/11/2024 BLOOD CULTU RE ( AGE => 11 YRS) blood culture ( age => 11 yrs) Blood Cultu re ( Age => 11 Yrs) NO GROWT H 72 HOURS Not Available [address] [place], [address] 01/11/2024 05:04:46 01/08/20 24 01/12/2024 BLOOD CULTU RE ( AGE => 11 YRS) blood culture ( age => 11 yrs) Blood Cultu re ( Age => 11 Yrs) NO GROWT H 96 HOURS Not Available [address] [place], [address] 01/12/2024 04:56:31 01/08/20 24 01/12/2024 BLOOD CULTU RE ( AGE => 11 YRS) blood culture ( age => 11 yrs) Blood Cultu re ( Age => 11 Yrs) NO GROWT H 96 HOURS Not Available [address] [place], [address] 01/12/2024 05:07:39 01/08/20 24 01/13/2024 BLOOD CULTU RE ( AGE => 11 YRS) blood culture ( age => 11 yrs) Blood Cultu re ( Age => 11 Yrs) NO GROWT H 120 HOURS Not Available [address] [place], [address] 01/13/2024 04:57:05 01/08/20 24 01/13/2024 BLOOD CULTU RE ( AGE => 11 YRS) blood culture ( age => 11 yrs) Blood Cultu re ( Age => 11 Yrs) NO GROWT H 120 HOURS Not Available [facility] [address] [facility] [place], [address] 01/13/2024 05:07:06 12/21/19 24 12/21/2023 vrad repor t Anisa t Name: Terrence Thompson Unit #: [id number] Loc: ER Orderi ng Provid er: Accoun t #: [id number] Status : REG ER Primar y Care Provid er: Alexi Lucero Date of Exam: 12/03 12/26 Sex: M : 1935 Age: 88 Exam(s ) PROCED URE INFORM ATION: Exam: CT Lumbar Spine Withou t Contra st Exam date and time: 9:20 AM Age: 88 years old Clinic al indica tion: Low back pain TECHNI QUE: Imagin g protoc ol: 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 There is ankylo sis of bilate ral sacroi liac joints . No acute fractu re. There is demine raliza tion visual ized bones. Mild retrol isthes is L4 over L5. Modera te bilate ral facet joint arthro paulo of the lower lumbar spine. 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 At L2-L3, bilate ral facet joint arthro paulo no signif icant thecal sac compre ssion or neural narrow ing. At L3-L4, relationship management lead ior osteop hyte disc comple x with bilate ral facet joint arthro paulo causin g severe thecal sac compre ssion and severe narrow ing of both neural forami na. At L4-L5: Owner Oral Surgeon ior osteop hyte disc comple x with bilate ral facet joint arthro paulo and ligame ntum flavum hypert rophy causin g severe thecal sac compre ssion and severe narrow ing both neural forami na. At L5-S1, relationship management lead ior osteop hyte disc comple x causin g mild thecal sac compre ssion and severe narrow ing of both neural forami na. Vascul ature: There are vascul ar calcif icatio ns. 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 Soft tissue s: Unrema rkable . 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 Dictat ed and Authen ticate d by: Leo Omer. Orderi ng:Robby Perera MD Access ion#=[id number] Ordere d By: CC: ------ ------ ------ ------ ------ ------ ------ ------ ------ ------ ------ ------ ---- Dictat ed By: Report s vrad [id number] 0953 Transc ribed By: Irene Spain 919 This is privil eged, confid ential inform ation intend ed only for the provid er named. Any use or distri bution by any person other than this provid er is strict ly prohib ited. If you receiv e this report in error, please notify us immedi berhanely at and return the origin al report to us at the addres s above. Thank- you. [facility] [address] [place], [address] 12/22/2023 07:34:46 12/21/1912/21/2023 vrad repor t Patien t Name: Terrence Thompson Unit #: [id number] Loc: ER Orderi ng Provid er: Accoun t #: [id number] Status : REG ER Primar y Care Provid er: Alexi Lucero Date of Exam: 12/03 12/26 Sex: M : 1935 Age: 88 Exam(s ) PROCED URE INFORM ATION: Exam: CT Abdome n And Pelvis Withou t Contra st Exam date and time: 024 9:20 AM Age: 88 years old Clinic al indica tion: Other: Suprap ubic pelvic , flank pain TECHNI QUE: Imagin g protoc ol: Comput ed tomogr aphy of the abdome n and pelvis withou t contra st. COMPAR SABRINA: CT ABDOME N PELVIS WO 10/06/19 24 1:55 AM FINDIN GS: Lungs: Atelec tatic change s in both lung bases. Stephens ry arteri es: Mild stephens ry calcif icatio ns. Liver: Normal . No mass. Gallbl adder and biliar y ducts: Normal . No calcif ied stones . No ductal dilati on. Pancre as: Normal . No ductal dilati on. Spleen : Normal . No spleno megaly . Adrena l glands : Normal . No mass. Kidney s and ureter s: Two nonobs tructi ng stones in the left kidney measur ing up to 6 mm in the lower pole. There is a 2 cm simple cyst in the left kidney . No hydron ephros is on either side. Stomac h and bowel: Post distal partia l colect johnson. Divert iculos is of the descen ding colon. Append ix: No eviden ce of append icitis . Intrap eriton eal space: Unrema rkable . No free air. No signif icant fluid collec tion. Vascul ature: Vascul ar calcif icatio ns. Post EVAR of abdomi nal aortic aneury sm. Stable size of the aneury sm sac. Lymph nodes: Unrema rkable . No enlarg ed lymph nodes. Urinar y bladde r: Unrema rkable as visual ized. Reprod uctive : Prosta te gland calcif icatio ns. Bones/ joints : Mild degene rative diseas e of the symphy sis pubis. Ankylo sing of bilate ral sacroi liac joints . Modera te degene rative diseas e of both hip joints . 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 Soft tissue s: Fat contai butch left inguin al hernia . IMPRES EMERSON: No acute intra- abdomi nal proces s. Dictat ed and Authen ticate d by: Leo Omer. Orderi ng:Robby Perera MD Access ion#=[id number] Ordere d By: CC: ------ ------ ------ ------ ------ ------ ------ ------ ------ ------ ------ ------ ---- Dictat ed By: Report s vrad 919 Transc ribed By: Di Merge 919 This is privil eged, confid ential inform ation intend ed only for the provid er named. Any use or distri bution by any person other than this provid er is strict ly prohib ited. If you receiv e this report in error, please notify us immedi ately at [phone] and return the origin al report to us at the addres s above. Thank- you. [email or web address] [facility] [address], [place], [address] 12/22/2023 07:34:47 12/21/1912/21/2023 CT imagi ng repor t Anisa t Name: Terrence Thompson leighjustin Mamie Unit #: [id number] Loc: ER Orderi ng Provid er: Marie Austin Accoun t #: [id number] Status : REG ER Primar y Care Provid er: Alexi Lucero josé manuel Date of Exam: 12/03 12/26 Sex: M : 1935 Age: 88 Exam(s ) a CT:CT abdome n pelvis wo Exam(s ) CT LUMBAR SPINE RECONS CT ABDOME N PELVIS WO EXAM: CT ABDOME N PELVIS WO and CT lumbar spine recons CLINIC AL HISTOR Y: back and pelvic pain, elevat ed wbc count. TECHNI QUE: Imagin g Protoc ol: Axial comput ed tomogr aphy images with stephens l and sagitt al reform atted images were create d and review ed. COMPAR SABRINA: CT CT ABDOME N PELVIS W from [address] ABDOME N PELVIS WO from [address] LUMBAR SPINE RECONS from 2023 FINDIN GS: ABDOME N: Lung Bases: Stephens ry artery calcif icatio ns are presen t. Liver: Normal densit y. No measur able mass. Gallbl adder and biliar y tract: No radiod ense calcul us or biliar y ductal dilati on. Pancre as: Normal densit y, no abnorm al calcif icatio ns or inflam matory proces s. Spleen : Normal . Kidney s: There is again seen bilate ral renal cortic al atroph y.Ther e is a calcif icatio n in the lower pole of the left kidney which may repres ent a vascul ar calcif icatio n versus a nonobs tructi ng stone. There is again seen a cyst in the inferi or pole of the left kidney . No follow -up is recomm ended. Adrena l glands : No mass is seen. Lymph nodes: Within normal limits . 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 It is stable in size at 8.6 cm AP. There is an endova scular aorta iliac stent in place. Extens nora athero sclero tic calcif icatio n is presen t. PELVIS : Bladde r:Symm etric disten tion, no gross wall thicke butch. Bowel: There is divert iculos is of the colon withou t eviden ce of acute divert iculit is. There is no eviden ce of bowel obstru ction or bowel wall thicke butch. No eviden ce of append icitis . The stomac h is incomp letely disten ded limiti ng evalua tion. Perito addie cavity : No ascite s, collec tion or mesent rom inflam matory respon se. No free air. Reprod uctive organs : Mildly enlarg ed prosta te gland. Bones: Within normal limits . 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 Degene rative change s are seen in the hips. Soft Tissue s: Within normal limits . CT recons of the lumbar spine: Age-ap propri ate degene rative change s are seen in the lumbar spine. No acute fractu re or sublux ation. There is disc space narrow ing and vacuum discs at L3-4, L4-5 and L5-S1. Degene rative change s of the facets are seen at multip le levels of the lumbar spine but partic ularly at L3-L4. There is marked centra l spinal canal stenos is at L3-L4 and modera tely severe at L4-L5. Multil evel neural forami nal stenos is is seen in the lower lumbar spine. The neural forami nal stenos is is most marked at L3-4 and L4-L5. IMPRES EMERSON: 1. Multil evel degene rative change s in the lumbar spine most marked at L3-4 and L4-L5. 2. No acute fractu re or sublux ation in the lumbar spine. 3. Coloni c divert iculos is withou t eviden ce of acute divert iculit is. 4. No eviden ce of obstru ctive uropat hy. RADIAT ION DOSE DELIVE RED: Total DLP DATA REPOSI TORY: All CT scans at this facili ty are submit sheri to the [facility] al Radiol ogy Data Regist ry (NRDR) Dose Index Regist ry (DIR) with the [place] [employer] of Radiol ogy (ACR). RADIAT ION OPTIMI ZATION : All CT scans at this facili ty use at least one of these dose optimi zation techni ques: automa sheri exposu re contro l; mA and/or kV adjust ment per patien t size (inclu magdi target ed exams where dose is matche d to clinic al indica tion); or iterat nora recons tructi on 009: Total DLP = 0.00 mGy-cm Ordere d By: Marie Austin CC: ------ ------ ------ ------ ------ ------ ------ ------ ------ ------ ------ ------ ---- Dictat ed By: Emanuel Schmidt M.D. 1221 1221 Transc ribed By: Emanuel Schmidt 1221 This is privil eged, confid ential inform ation intend ed only for the provid er named. Any use or distri bution by any person other than this provid er is strict ly prohib ited. If you receiv e this report in error, please notify us immedi ately at [phone] and return the origin al report to us at the addres s above. Thank- you. [email or web address] [facility] [address] [place], [address] 12/22/2023 07:34:47 12/21/1912/21/2023 CT imagi ng repor t Patitj t Name: Terrence Thompson leighjustin Mamie Unit #: [id number] Loc: ER Orderi ng Provid er: Aretha henao,Marie n QUINN Accoun t #: [id number] Status : REG ER Primar y Care Provid er: Alexi Lucero Date of Exam: 12/03 12/26 Sex: M : 1935 Age: 88 Exam(s ) a CT:CT lumbar spine recons Exam(s ) CT LUMBAR SPINE RECONS CT ABDOME N PELVIS WO EXAM: CT ABDOME N PELVIS WO and CT lumbar spine recons CLINIC AL HISTOR Y: back and pelvic pain, elevat ed wbc count. TECHNI QUE: Imagin g Protoc ol: Axial comput ed tomogr aphy images with stephens l and sagitt al reform atted images were create d and review ed. COMPAR SABRINA: CT CT ABDOME N PELVIS W from [address] ABDOME N PELVIS WO from [address] LUMBAR SPINE RECONS from 2023 FINDIN GS: ABDOME N: Lung Bases: Stephens ry artery calcif icatio ns are presen t. Liver: Normal densit y. No measur able mass. Gallbl adder and biliar y tract: No radiod ense calcul us or biliar y ductal dilati on. Pancre as: Normal densit y, no abnorm al calcif icatio ns or inflam matory proces s. Spleen : Normal . Kidney s: There is again seen bilate ral renal cortic al atroph y.Ther e is a calcif icatio n in the lower pole of the left kidney which may repres ent a vascul ar calcif icatio n versus a nonobs tructi ng stone. There is again seen a cyst in the inferi or pole of the left kidney . No follow -up is recomm ended. Adrena l glands : No mass is seen. Lymph nodes: Within normal limits . 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 It is stable in size at 8.6 cm AP. There is an endova scular aorta iliac stent in place. Extens nora athero sclero tic calcif icatio n is presen t. PELVIS : Bladde r:Symm etric disten tion, no gross wall thicke butch. Bowel: There is divert iculos is of the colon withou t eviden ce of acute divert iculit is. There is no eviden ce of bowel obstru ction or bowel wall thicke butch. No eviden ce of append icitis . The stomac h is incomp letely disten ded limiti ng evalua tion. Perito addie cavity : No ascite s, collec tion or mesent rom inflam matory respon se. No free air. Reprod uctive organs : Mildly enlarg ed prosta te gland. Bones: Within normal limits . 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 Degene rative change s are seen in the hips. Soft Tissue s: Within normal limits . CT recons of the lumbar spine: Age-ap propri ate degene rative change s are seen in the lumbar spine. No acute fractu re or sublux ation. There is disc space narrow ing and vacuum discs at L3-4, L4-5 and L5-S1. Degene rative change s of the facets are seen at multip le levels of the lumbar spine but partic ularly at L3-L4. There is marked centra l spinal canal stenos is at L3-L4 and modera tely severe at L4-L5. Multil evel neural forami nal stenos is is seen in the lower lumbar spine. The neural forami nal stenos is is most marked at L3-4 and L4-L5. IMPRES EMERSON: 1. Multil evel degene rative change s in the lumbar spine most marked at L3-4 and L4-L5. 2. No acute fractu re or sublux ation in the lumbar spine. 3. Coloni c divert iculos is withou t eviden ce of acute divert iculit is. 4. No eviden ce of obstru ctive uropat hy. RADIAT ION DOSE DELIVE RED: Total DLP DATA REPOSI TORY: All CT scans at this facili ty are submit sheri to the [facility] al Radiol ogy Data Regist ry (NRDR) Dose Index Regist ry (DIR) with the [place] [employer] of Radiol ogy (ACR). RADIAT ION OPTIMI ZATION : All CT scans at this facili ty use at least one of these dose optimi zation techni ques: automa sheri exposu re contro l; mA and/or kV adjust ment per patien t size (inclu magdi target ed exams where dose is matche d to clinic al indica tion); or iterat nora recons tructi on. 817- 010: Total DLP = 0.00 mGy-cm Ordere d By: Aretha henao,Marie BALL CC: ------ ------ ------ ------ ------ ------ ------ ------ ------ ------ ------ ------ ---- Dictat ed By: Emanuel Schmidt M.D. 1221 1221 Transc ribed By: Emanuel Schmidt 1221 This is privil eged, confid ential inform ation intend ed only for the provid er named. Any use or distri bution by any person other than this provid er is strict ly prohib ited. If you receiv e this report in error, please notify us immedi berhanely at and return the origin al report to us at the addres s above. Thank- you. [email or web address] [facility] [address] [place], [address] 12/26/2023 09:17:16 12/24/1912/24/2023 x-ray imagi ng yulissa robertson Anisa marcelo Name: Terrence Tohmpson Unit #: [id number] Loc: ER Orderadriano ng Provid er: Riya Garza M.D. Accoun t #: [id number] Status : REG ER Primar y Care Provid er: Alexi Lucero josé manuel Date of Exam: 12/04 05/28 Sex: M Admiss ion Date: : 1935 Age: 88 Exam(s ) XR CHEST 2V PA LATERA L EXAM: XR CHEST 2V PA LATERA L CLINIC AL HISTOR Y: abd pain, back pain TECHNI QUE: 2D digita l imagin g was perfor med. Two views. COMPAR SABRINA: No exams were availa ble for compar sabrina FINDIN GS: Exam is limite d by poor inspir ation on the latera l view. HEART: Enlarg ed. Aorta: Calcif ied and tortuo us. PULMON ARABELLA VASCUL ATURE: Normal . MEDIAS TINUM: Unrema rkable . LUNGS: Clear as visual ized. PLEURA L SPACE: No pleura l effusi on or pneumo thorax . BONE:U nremar kable for age. SOFT TISSUE S: Unrema rkable . IMPRES EMERSON: No acute abnorm ality. DATA REPOSI TORY: RADIAT ION DOSE DELIVE RED: Ordere d By: Riya Garza M.D. CC: ------ ------ ------ ------ ------ ------ ------ ------ ------ ------ ------ ------ - Dictat ed By: Stephanie Infante 1003 1003 Transc ribed By: Mg Vemra 1003 This is privil eged, confid ential inform ation intend ed only for the provid er named. Any use or distri bution by any person other than this provid er is strict ly prohib ited. If you receiv e this report in error, please notify us immseymour sparrow at and return the origin al report to us at the addres s above. Thank- you. [email or web address] [facility] [address] [place], [address] 12/24/2023 18:07:26 12/24/19 24 12/24/2023 CT imagi ng repor t Patitj t Name: Terrence Thompson Unit #: [id number] Loc: ER Orderi ng Provid er: Riya Garza M.D. Accxiomara t #: [id number] Status : REG ER Primar y Care Provid er: Alexi Lucero Date of Exam: 12/04 05/28 Sex: M : 1935 Age: 88 Exam(s ) a CT:CT abdome n pelvis wo Exam(s ) CT ABDOME N PELVIS WO EXAM: CT ABDOME N PELVIS WO CLINIC AL HISTOR Y: abd pain back pain. TECHNI QUE: Imagin g Protoc ol: Axial comput ed tomogr aphy images with stephens l and sagitt al reform atted images were create d and review ed. Oral: / no COMPAR SABRINA: CT CT ABDOME N PELVIS WO from 2023 FINDIN GS: Exam is mildly limite d by motion . Lung Bases: No acute findin gs. The heart is enlarg ed. Liver: Normal densit y. No suspic ious mass. Gallbl adder and biliar y tract: No radiod ense calcul us or biliar y dilati on. Pancre as: Normal densit y. No abnorm al calcif icatio ns or inflam matory proces s. Spleen : Normal . Kidney s: Normal size, contou r and axis. No radiod ense stones . No obstru ctive uropat hy. No suspic ious masses seen. Adrena l glands : No masses seen. Lymph nodes: Within normal limits . Vascul ature: Stable size and appear ance of saccul ar infrar enal abdomi nal aortic aneury sm with aorta bi-mckinley ac stents . No eviden ce of leak. Soft tissue s: Unrema rkable . Bladde r: No wall thicke butch. No mass or calcul i. Bowel: No obstru ction or bowel wall thicke butch. Sigmoi d anasto mosis. Divert iculos is. No eviden ce of divert iculit is. Evalua tion of the colon is somewh at limite d due to motion . The append ix is not seen. Perito addie cavity : No ascite s. No focal collec tion. No mesent rom inflam matory respon se. Reprod uctive organs : Prosta te enlarg ed. Bones: Advanc ed degene rative change s at L3-4 throug h L5-S1. No compre ssion fractu res. Severe centra l canal stenos is again noted at L3-4. Modera te centra l canal stenos is presen t at L4-5. Neural forami nal narrow ing also presen t at these levels . IMPRES EMERSON: No acute abnorm ality in the abdome n or pelvis . Stable size and appear ance of abdomi nal aortic aneury sm with stents in place. Advanc ed degene rative change s of the lower lumbar spine. RADIAT ION DOSE DELIVE RED: Total DLP DATA REPOSI TORY: All CT scans at this facili ty are submit sheri to the [place] al Radiol ogy Data Regist ry (NRDR) Dose Index Regist ry (DIR) with the [place] [employer] of Radiol ogy (ACR). RADIAT ION OPTIMI ZATION : All CT scans at this facili ty use at least one of these dose optimi zation techni ques: automa sheri exposu re contro l; mA and/or kV adjust ment per patien t size (inclu magdi target ed exams where dose is matche d to clinic al indica tion); or iterat nora recons tructi on 021: Total DLP = 0.00 mGy-cm Ordere d By: Riya Garza M.D. CC: ------ ------ ------ ------ ------ ------ ------ ------ ------ ------ ------ ------ ---- Dictat ed By: Stephanie Infante 1029 1029 Transc ribed By: Mg Verma 1029 This is privil eged, confid ential inform ation intend ed only for the provid er named. Any use or distri bution by any person other than this provid er is strict ly prohib ited. If you receiv e this report in error, please notify us immedi ately at [phone] and return the origin al report to us at the addres s above. Thank- you. [email or web address] [facility] [address] [place], [address] 12/24/2023 18:07:26 12/28/19 24 12/28/2023 vrad repor t Patien t Name: Terrence Thompson Unit #: [id number] Loc: ER Orderi ng Provid er: Accoun t #: [id number] Status : REG ER Primar y Care Provid er: Alexi Lucero Date of Exam: 12/04 09/25 Sex: M : 1935 Age: 88 Exam(s ) PROCED URE INFORM ATION: Exam: US Scrotu m Exam date and time: 024 7:50 AM Age: 88 years old Clinic al indica tion: Scrotu m pain; Patien t HX: B/l testic ular tender ness TECHNI QUE: Imagin g protoc ol: Real-t donal ultras ound of the scrotu m and conten ts with color Dopple r and image docume ntatio n. COMPAR SABRINA: US RENAL 08/09/19 22 9:24 AM FINDIN GS: Right testic le: The right testic le measur es 3.1 x 2.2 x 4.1 cm. Normal arteri al early on venous blood flow presen t. Modera te hydroc el presen t. No solid mass. Multip le small cysts at the periph tejas of the testic le. Left testic le: The left testic le measur es 3.8 x 2.5 x 4.4 cm. Normal arteri al and venous blood flow presen t. No mass. Epidid ymides : Multip le small right epidid ymal head cysts Scrotu m/soft tissue s: Left-s ided hydroc el presen t. Small scrota l pearls presen t bilate rally. Bilate ral varico debbie possib ly thromb osed IMPRES EMERSON: Bilate ral varico debbie possib ly thromb osed Dictat ed and Authen ticate d by: Shu Gong MD. Orderi ng:Elaina Shaikh MD Access ion#=[id number] Ordere d By: CC: ------ ------ ------ ------ ------ ------ ------ ------ ------ ------ ------ ------ ---- Dictat ed By: Report s vrad [id number] [id number] Transc ribed By: Irene Merge 0750 This is privil eged, confid ential inform ation intend ed only for the provid er named. Any use or distri bution by any person other than this provid er is strict ly prohib ited. If you receiv e this report in error, please notify us immedi ately at [phone] and return the origin al report to us at the addres s above. Thank- you. [email or web address] [facility] [address] [place], [address] 12/29/2023 07:26:06 12/28/19 24 12/28/2023 ultra sound imagi ng repor t Patien t Name: ThompsonTerrence Unit #: [id number] Loc: ER Orderi ng Provid er: Sirisha Lawson M.D. Accoun t #: [id number] Status : REG ER Primar y Care Provid er: Alexi Lucero Date of Exam: 12/04 09/25 Sex: M Admiss ion Date: : 1935 Age: 88 Exam(s ) US SCROTU M EXAM: US SCROTU M CLINIC AL HISTOR Y: b/l testic ular tender ness. TECHNI QUE: Scrota l ultras ound perfor med using graysc zeke, color- flow and spectr al Dopple r analys is. COMPAR SABRINA: No exams were availa ble for compar sabrina FINDIN GS: RIGHT TESTIC LE: 3.1 x 2.2 x 4.1 cm Echoge nicity : Normal . Contou r: Smooth . Mass: None seen. Tunica albugi lia cysts. Microl ithias is: None. Hydroc el: Small. Scrota l awilda. Varico cornell: Thromb osed varico cornell. Hernia : No perist alsing bowel loop identi fied. Epidid ymis: Epidid ymal head cysts. Scrotu m: Normal . LEFT TESTIC LE: 3.8 x 2.5 x 4.4 cm Echoge nicity : Normal . Contou r: Smooth . Mass: None seen. Tunica albugi lia cysts. Microl ithias is: None. Hydroc el: Small. Scrota l awilda. Varico cornell: Thromb osed varico cornell. Hernia : No perist alsing bowel loop identi fied. Epidid ymis: Normal . Scrotu m: Normal . DOPPLE R: Color: Symmet shubham and unifor m, no hypere citlaly. Duplex : Bilate ral testic ular arteri al wavefo beverly visual ized. IMPRES EMERSON: Normal appear ing bilate ral testic les. Bilate ral thromb osed varico debbie left greate r than right. DATA REPOSI TORY: Adinae d By: Sirisha Lawson M.D. CC: ------ ------ ------ ------ ------ ------ ------ ------ ------ ------ ------ ------ - Dictat ed By: Stephanie Infante 1402 1402 Transc ribed By: Mg Verma 1402 This is privil eged, confid ential inform ation intend ed only for the provid er named. Any use or distri bution by any person other than this provid er is strict ly prohib ited. If you receiv e this report in error, please notify us immedi ately at [phone] and return the origin al report to us at the addres s above. Thank- you. [email or web address] [facility] [address] [place], [address] 12/29/2023 07:26:06 01/08/20 24 01/08/2024 vrad repor t Patitj t Name: Terrence Thompson Unit #: [id number] Loc: ER Orderi ng Provid er: Accoun t #: [id number] Status : REG ER Primar y Care Provid er: Alexi Lucero Date of Exam: 09/25 Sex: M : 1935 Age: 88 Exam(s ) PROCED URE INFORM ATION: Exam: XR Chest Exam date and time: 01/08/20 2:14 AM Age: 88 years old Clinic al indica tion: Other: Hypogl ycemia , infect ious workup TECHNI QUE: Imagin g protoc ol: Radiol ogic exam of the chest. Views: 1 view. COMPAR SABRINA: CR XR CHEST 2V PA LATERA L 024 9:50 AM FINDIN GS: Lungs: No focal consol idatio n seen. Pleura l spaces : No large pleura l effusi on seen. Heart/ Medias tinum: Enlarg ed cardia c silhou ette. Vascul ature: Arteri al calcif icatio ns. Bones/ joints : No acute abnorm ality. IMPRES EMERSON: Enlarg ed cardia c silhou ette. Dictat ed and Authen ticate d by: Jade Velasco MD. Orderi ng:P.Vargas friedman MD Access ion#=[id number] Ordere d By: CC: ------ ------ ------ ------ ------ ------ ------ ------ ------ ------ ------ ------ ---- Dictat ed By: Report s vrad 213 Transc ribed By: Irene Merge 213 This is privil eged, confid ential inform ation intend ed only for the provid er named. Any use or distri bution by any person other than this provid er is strict ly prohib ited. If you receiv e this report in error, please notify us immedi berhanefer at and return the origin al report to us at the addres s above. Thank- you. [email or web address] [place] [id number], [place], [address] 01/08/2024 10:02:38 01/08/2001/08/2024 x-ray imagi ng repor t Patitj t Name: Terrence Thompson Unit #: [id number] Loc: ER Orderi ng Provid er: Florecita Cole M.D. t #: [id number] Status : DEP ER Primar y Care Provid er: Alexi Lucero Date of Exam: 09/25 Sex: M Admiss ion Date: : 1935 Age: 88 Exam(s ) XR PORTAB LE CHEST AP EXAM: XR PORTAB LE CHEST AP CLINIC AL HISTOR Y: hypogl ycemia , infect ious workup . TECHNI QUE: 2D digita l imagin g was perfor med. COMPAR SABRINA: Chest x-ray 2023 FINDIN GS: Single AP portab le view. Cardio megaly again noted. Medias tinum not widene d. Lungs are clear. No infilt rates nor obviou s pleura l effusi ons. IMPRES EMERSON: No acute pulmon arabella findin gs on this single AP portab le view of the chest. Cardio megaly again noted. No CHF. DATA REPOSI TORY: RADIAT ION DOSE DELIVE RED: Ordere d By: Florecita Cole M.D. CC: ------ ------ ------ ------ ------ ------ ------ ------ ------ ------ ------ ------ - Dictat ed By: Angel Mo M.D. 1410 Transc ribed By: Chepe MOTA,Hui katerina 1410 This is privil eged, confid ential inform ation intend ed only for the provid er named. Any use or distri bution by any person other than this provid er is strict ly prohib ited. If you receiv e this report in error, please notify us immedi ately at [phone] and return the origin al report to us at the addres s above. Thank- you. [email or web address] [facility] [address], [place], [address] 01/08/2024 14:15:50 01/19/2011/07/2020 imagi ng/di agnos tic resul t No observ ation record ed. Not Available 01/18 19:15:15 01/19/20 24 12/02/2019 imagi ng/di agnos tic resul t No observ ation record ed. Not Available 01/18 19:16:46 01/19/20 24 08/08/2021 US, renal No observ ation record ed. Not Available 01/18 19:17:10 01/19/20 24 07/19/2018 imagi ng/di agnos tic resul t No observ ation record ed. Not Available 01/18 19:17:15 01/19/20 24 07/30/2022 imagi ng/di agnos tic resul t No observ ation record ed. Not Available 01/18 19:17:16 01/19/20 24 08/08/2022 imagi ng/di agnos tic resul t No observ ation record ed. Not Available 01/18 19:17:17 01/19/20 24 10/06/2021 imagi ng/di agnos tic resul t No observ ation record ed. Not Available 01/18 19:17:18 01/19/20 24 11/16/2021 imagi ng/di agnos tic resul t No observ ation record ed. Not Available 01/18 19:17:19 01/19/20 24 07/19/2018 imagi ng/di agnos tic resul t No observ ation record ed. Not Available 01/18 19:17:24 01/19/20 24 11/07/2020 imagi ng/di agnos tic resul t No observ ation record ed. Not Available 01/18 19:17:38 01/19/20 24 11/30/2020 imagi ng/di agnos tic resul t No observ ation record ed. Not Available 01/18 19:18:06 01/19/20 24 10/05/2021 imagi ng/di agnos tic resul t No observ ation record ed. Not Available 01/18 19:18:50 01/19/20 24 11/16/2021 imagi ng/di agnos tic resul t No observ ation record ed. Not Available 01/18 19:18:51 01/19/20 24 11/07/2020 imagi ng/di agnos tic resul t No observ ation record ed. Not Available 01/18 19:19:02 01/19/20 24 11/07/2020 imagi ng/di agnos tic resul t No observ ation record ed. Not Available 01/18 19:19:03 01/19/20 24 07/18/2018 imagi ng/di agnos tic resul t No observ ation record ed. Not Available 01/18 19:19:05 01/19/20 24 07/19/2018 imagi ng/di agnos tic resul t No observ ation record ed. Not Available 01/18 19:19:06 01/19/20 24 07/19/2018 imagi ng/di agnos tic resul t No observ ation record ed. Not Available 01/18 19:19:07 01/19/20 24 11/16/2021 imagi ng/di agnos tic resul t No observ ation record ed. Not Available 01/18 19:19:16 01/19/20 24 10/05/2021 imagi ng/di agnos tic resul t No observ ation record ed. Not Available 01/18 19:19:25 01/19/20 24 05/29/2021 imagi ng/di agnos tic resul t No observ ation record ed. Not Available 01/18 19:19:33 01/19/20 24 11/07/2020 imagi ng/di agnos tic resul t No observ ation record ed. Not Available 01/18 19:19:42 01/19/20 24 11/07/2020 XR, chest No observ ation record ed. Not Available 01/18 19:20:01 01/19/20 24 07/19/2018 CT, abdom en No observ ation record ed. Not Available 01/18 19:20:02 01/19/20 24 03/08/2022 imagi ng/di agnos tic resul t No observ ation record ed. Not Available 01/18 19:20:04 01/19/20 24 11/07/2020 XR, chest No observ ation record ed. Not Available 01/18 19:20:06 01/19/20 24 03/18/2023 imagi ng/di agnos tic resul t No observ ation record ed. Not Available 01/18 19:20:51 Result Notes None recorded. Problems Name Problem SNOMED Code Status Onset Date Resolution Date Notes Provider Name and Address Organization Details Recorded Time Erectile dysfunct ion 180897847 [facility] Hyperlip idemia 04936593 [facility] 4 10:11:57 Type 2 diabetes mellitus without complica tion 216731447 Active 2005 [facility] 4 10:12:37 Steatosi s of liver 498492428 Active 2009 [facility] 4 10:12:23 Abdomina l aortic aneurysm without rupture 58199825 [facility] 4 10:09:38 Benign prostati c hyperpla gregory 024574260 Active 2014 [facility] 4 10:10:32 Hernia of anterior abdomina l wall 177800536 [facility] 4 10:11:52 Phimosis 106404914 [facility] 4 10:12:18 Dysthymi a 14197659 [facility] 4 10:11:01 Essentia l hyperten emerson 74441899 [facility] 4 10:11:13 Chronic kidney disease stage 4 334289840 [facility] 4 10:10:38 Low back pain 048994237 [facility] 4 10:12:09 Nicotine dependen ce 64746423 [facility] 4 10:12:13 Disorder of salivary gland 38679943 Active 2016 LETTYLanie [facility]OFF[facility] 4 10:10:56 Digestiv e system disease screenin g Completed 201610/10/2016 Problem Code: Z13.818; Problem Code Type: ICD-10; Not Available [facility] 3 05:17:20 Atherosc lerosis of coronary artery without angina pectoris 97337705359 4103 Active 2016 LETTY DALTON [facility] 4 10:10:18 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 He can stop doxyclin e as he has felt better for the past 48 hours. Problem Code: J40; Problem Code Type: ICD-10; Not Available [facility] 3 05:17:21 Hypomagn esemia 154364822 Completed 201803/06/2023 Problem Code: E83.42; Problem Code Type: ICD-10; Not Available [facility] 4 05:37:17 Colostom y present 894234431 [facility] 2018 [facility] 4 10:10:45 Heart failure 44001789 [facility] 4 10:11:48 Hearing loss 45276131 Active 2019 LETTY DALTON [facility] 4 10:11:44 Balaniti s 38219678 Active 2020 LETTY fuller, [facility] 4 10:10:27 Atrial flutter 3974498 Active 2020 LETTY fuller, [facility] 4 10:10:23 Transien t acanthol ytic dermatos is 09660327 Active 2020 LETTY fuller, [facility] 4 10:12:32 Intersti tial lung disease 112515528 Active 2021 LETTY fuller, [facility] 4 10:12:04 Internal hordeolu m 514770616 Completed 202206/05/2022 Problem Code: H00.029; Problem Code Type: ICD-10; Not Available [facility] 3 05:17:22 Essentia l tremor 628352492 Active 2022 LETTY fuller, [facility] 4 10:11:19 Gout 62577908 Active 2022 LETTY fuller, [facility] 4 10:11:38 External hordeolu m 8575832 Completed 202203/06/2023 Problem Code: H00.019; Problem Code Type: ICD-10; Not Available [facility] 4 05:37:17 History of right cataract extracti on 710689837 Completed 201406/06/2020 Problem Code: Z98.41; Problem Code Type: ICD-10; Not Available [facility] 3 05:17:27 Hypervol emia 13581395 Completed 201506/07/2016 Problem Code: E87.70; Problem Code Type: ICD-10; Not Available [facility] 3 05:17:27 Anemia 742099058 Completed 201806/06/2020 Problem Code: D64.9; Problem Code Type: ICD-10; Not Available [facility] 3 05:17:27 Edema 178624487 Completed 202012/11/2021 Problem Code: R60.9; Problem Code Type: ICD-10; Not Available [facility] 3 05:17:27 Impacted cerumen of bilatera l ears 89521396145 79953 Completed 202212/02/2022 Problem Code: H61.23; Problem Code Type: ICD-10; [address], [place], [address] , [facility] 12:04:41 Acute pharyngi tis 190649541 Completed 202209/07/2022 Problem Code: J02.9; Problem Code Type: ICD-10; Not Available [facility] 05:17:28 Pleuriti c pain 9527521 Completed 202109/02/2022 Problem Code: R07.81; Problem Code Type: ICD-10; Not Available [facility] 3 05:17:29 Allergic contact dermatit is 072797755 Completed 201906/06/2020 Problem Code: L23.9; Problem Code Type: ICD-10; Not Available [facility] 3 05:17:29 Generali zed enlarged lymph nodes 480005163 Completed 201601/29/2023 10/10/19 17 - Comments only - Arely Moise MD - I am concerne d with the size of the mass, especial ly given the smokign history. It is in the setting of a URI/sinu sitis, smaller lymph node on left, so I will treat with antibiot ics. However, given risk of malignac y, I have placed urgent referral to ENT for evaluati on for biopsy. Problem Code: R59.1; Problem Code Type: ICD-10; Not Available [facility] 3 05:17:29 Disorder of soft tissue 11613048 Completed 201906/06/2020 Problem Code: M70.90; Problem Code Type: ICD-10; Not Available [facility] 3 05:17:30 Impotenc e Completed Not Available [facility] 3 05:17:30 Pneumoni a 744943319 Completed 201702/17/2018 Problem Code: J18.9; Problem Code Type: ICD-10; Not Available [facility] 3 05:17:30 Chronic kidney disease stage 3 188478524 Completed 201501/29/2023 06/06/19 21 - Comments only - Arely Moise MD - Stage 3b, so get full renal panel with labs today. Fluid status okay clinical ly today. Working on BP. Not Available [facility] 3 05:17:30 Upper respirat ory tract infectio n caused by Influenz a virus 96454565042 640713 Completed 202209/02/2022 Problem Code: J11.1; Problem Code Type: ICD-10; Not Available [facility] 3 05:17:31 Disorder of skin and/or subcutan eous tissue 70404961 Completed 201706/06/2020 Problem Code: L98.9; Problem Code Type: ICD-10; Not Available [facility] 3 05:17:31 Cough 88987460 Completed 202209/07/2022 Problem Code: R05.8; Problem Code Type: ICD-10; Not Available [facility] 3 05:17:31 Chest pain 95141392 Completed 202112/11/2021 Problem Code: R07.9; Problem Code Type: ICD-10; Not Available [facility] 3 05:17:32 Primary gout 94354654 Completed 202201/29/2023 Problem Code: M10.00; Problem Code Type: ICD-10; Not Available [facility] 3 05:17:32 Hypercho lesterol emia 40147643 Completed 199601/29/2023 Not Available [facility] 3 05:17:32 Diabetes mellitus 02997648 Completed 200501/29/2023 Not Available [facility] 3 05:17:33 Pain of left shoulder joint 11264738171 696957 Completed 202102/18/2022 Problem Code: M25.512; Problem Code Type: ICD-10; Not Available [facility] 3 05:17:33 Localize d edema 102876589 Completed 201901/11/2020 Problem Code: R60.0; Problem Code Type: ICD-10; Not Available [facility] 3 05:17:33 Eczema 03843513 Completed 202001/29/2023 Problem Code: L30.9; Problem Code Type: ICD-10; Not Available [facility] 3 05:17:34 Prepatel lar bursitis of left knee 81968029364 9103 Completed 202201/29/2023 07/30/19 23 - Comments only - Arely Moise MD - Ovidio is in a lot of pain, but tenderne ss and inflamma tion limited to prepaell ar area. No trauma. I don't see wounds. Will try to treat with RICE and diclofen ac. If not improvin g I would get CRP/CBC to assess for risk of inflecti on and XR to confirm fluid lmited to pre-valdovinos lla. Problem Code: M70.42; Problem Code Type: ICD-10; Not Available [facility] 3 05:17:34 Hyperten sive disorder 02668022 Completed 200602/06/2016 Not Available [facility] 3 05:17:35 Thoracic aortic aneurysm without rupture 83957252 Active 2022 LETTY fuller [facility]. 4 10:12:28 Ganglion cyst of right hand 00592365424 9107 Active 2022 LETTY fuller [facility]. 4 10:11:27 Recurren t falls 635829737 Active 2023 QUINN BAKER [address], [place], [address] , [facility]. 4 08:14:47 Aneurysm of thoracic aorta 008357398 Active [address], [facility] [address] , [facility] 4 08:15:13 Impacted cerumen of bilatera l ears 83739966525 08793 Active 2023 Problem Code: H61.23; Problem Code Type: ICD-10; [address], [facility] [address] , [facility] 4 12:04:41 Bursitis of olecrano n of left elbow 89205174997 9101 Active [address], [facility] [address] , [facility] 4 12:40:14 Trigger finger of left hand 31953045289 821496 Active [address], [facility] [address] , [facility] 4 12:43:16 Unsteady when walking 30999195 Active [address], [facility] [address] , [facility] 4 15:37:59 Pain of left knee joint 87216480513 4107 Active [address], [facility] [address] , [facility] 4 14:05:19 Trigger thumb of left hand 71005449921 9107 Active [address], [facility] [address] , [facility] 4 14:30:58 Acute gout 512768964 Active 2023 ZEYNEP ROBIN, SURGICAL ENDOSCOPIST [address], [facility] [address] , [facility] 4 12:58:04 Acute low back pain 319083704 Active [address], [facility] [address] , [facility] 4 10:01:35 Spinal stenosis of lumbar region 04597339 Active [address], [facility] [address] , [facility] 4 11:45:12 Pain in testicle 49111262 Active [address], [facility] [address] , [facility] 4 12:13:30 Degenera tive lumbar spinal stenosis 541336710 Active 2023 Zeynep fuller, [facility] 4 11:05:52 Low blood pressure 63064567 Active [address], [facility] [address] , [facility] 4 09:42:36 Notes:*Problem Name: Hyperch olesterolem *ICD-10 Codes: *Problem Status: inactive *Comments: *Problem Code Type: CPT *Note Date: 10/03/1996 *Problem Name: Aaa 4.4cm *ICD-10 Codes: *Problem Status: inactive *Comments: *Note Date: 11/01/2009 *Problem Name: Diabetes 2-sj *ICD-10 Codes: *Problem Status: inactive *Comments: *Note Date: 09/03/2003 *Problem Name: Hptn *ICD-10 Codes: *Problem Status: inactive *Comments: *Note Date: 05/05/1993 *Problem Name: Mi By Ekg *ICD-10 Codes: *Problem Status: inactive *Comments: *Note Date: 04/04/2004 *Problem Name: Polyps Colon *ICD-10 Codes: *Problem Status: inactive *Comments: *Note Date: 05/05/2001 *Problem Name: Diabetes 2-sj *ICD-10 Codes: *Problem Status: inactive *Comments: *Problem Code Type: CPT *Note Date: 09/03/2003 *Problem Name: Hptn *ICD-10 Codes: *Problem Status: inactive *Comments: *Problem Code Type: CPT *Note Date: 05/05/1993 *Problem Name: Mi By Ekg *ICD-10 Codes: *Problem Status: inactive *Comments: *Problem Code Type: CPT *Note Date: 04/04/2004 *Problem Name: Polyps Colon *ICD-10 Codes: *Problem Status: inactive *Comments: *Problem Code Type: CPT *Note Date: 05/05/2001 Problem Notes None recorded. Procedures Surgical History Date Name Laterality Status Provider Name and Address Organization Details Recorded Time Cerumen Removal completed [address]IN[address], [facility] [place], [address], [facility] 09/25/2023 12:46:11 Imaging Results Imaging Date Name Status LastModified by [facility] Details LastModified Time 12/21/2023 vrad report completed [email or web address] [address] [place], [address] 12/22/2023 07:34:46 12/21/2023 vrad report completed [id number] [place], [address] 12/22/2023 07:34:47 12/21/2023 CT imaging report completed [email or web address] [place] [address] [place], [address] 12/22/2023 07:34:47 12/21/2023 CT imaging report completed [email or web address] [place], [address] 12/26/2023 09:17:16 12/24/2023 x-ray imaging report completed [address] [place], [address] 12/24/2023 18:07:26 12/24/2023 CT imaging report completed [email or web address] [address] [place], [address] 12/24/2023 18:07:26 12/28/2023 vrad report completed [email or web address] [place] [address] [place], [address] 12/29/2023 07:26:06 12/28/2023 ultrasound imaging report completed [email or web address] [address] [place], [address] 12/29/2023 07:26:06 01/08/2024 vrad report completed [email or web address] [place] [address] [place], [address] 01/08/2024 10:02:38 01/08/2024 x-ray imaging report completed [email or web address] [address] [place], [address] 01/08/2024 14:15:50 11/07/2020 imaging/diagnos tic result completed Information not available 01/19/2024 19:15:15 12/02/2019 imaging/diagnos tic result completed Information not available 01/19/2024 19:16:46 08/08/2021 US, renal completed Information no t available 01/19/2024 19:17:10 07/19/2018 imaging/diagnos tic result completed Information not available 01/19/2024 19:17:15 07/30/2022 imaging/diagnos tic result completed Information not available 01/19/2024 19:17:16 08/08/2022 imaging/diagnos tic result completed Information not available 01/19/2024 19:17:17 10/06/2021 imaging/diagnos tic result completed Information not available 01/19/2024 19:17:18 11/16/2021 imaging/diagnos tic result completed Information not available 01/19/2024 19:17:19 07/19/2018 imaging/diagnos tic result completed Information not available 01/19/2024 19:17:24 11/07/2020 imaging/diagnos tic result completed Information not available 01/19/2024 19:17:38 11/30/2020 imaging/diagnos tic result completed Information not available 01/19/2024 19:18:06 10/05/2021 imaging/diagnos tic result completed Information not available 01/19/2024 19:18:50 11/16/2021 imaging/diagnos tic result completed Information not available 01/19/2024 19:18:51 11/07/2020 imaging/diagnos tic result completed Information not available 01/19/2024 19:19:02 11/07/2020 imaging/diagnos tic result completed Information not available 01/19/2024 19:19:03 07/18/2018 imaging/diagnos tic result completed Information not available 01/19/2024 19:19:05 07/19/2018 imaging/diagnos tic result completed Information not available 01/19/2024 19:19:06 07/19/2018 imaging/diagnos tic result completed Information not available 01/19/2024 19:19:07 11/16/2021 imaging/diagnos tic result completed Information not available 01/19/2024 19:19:16 10/05/2021 imaging/diagnos tic result completed Information not available 01/19/2024 19:19:25 05/29/2021 imaging/diagnos tic result completed Information not available 01/19/2024 19:19:33 11/07/2020 imaging/diagnos tic result completed Information not available 01/19/2024 19:19:42 11/07/2020 XR, chest completed Information no t available 01/19/2024 19:20:01 07/19/2018 CT, abdomen completed Information n ot available 01/19/2024 19:20:02 03/08/2022 imaging/diagnos tic result completed Information not available 01/19/2024 19:20:04 11/07/2020 XR, chest completed Information no t available 01/19/2024 19:20:06 03/18/2023 imaging/diagnos tic result completed Information not available 01/19/2024 19:20:51 Procedure Notes None recorded. Medical Equipment None Reported. Allergies Allergen ID Allergen Name Allergen Category Reaction Reaction Severity Criticality Documentation Date Start Date Code Code System Note Provider Name and Address Organization Details Recorded Time neomycin sulfate medicatio n rash moderate Not available 03/14/20232019 7300 RxNorm Stephy Nicole RN [facility], [place] - [facility]. 13:20:31 Medications Name Sig Start Date Stop Date Status Note LastModified by Organization Details LastModified Time Prescript ion - Renewal active aloglipt in 6.25 mg tablet Not Available Not Available Not Available prior authoriza tion request 12/04 completed Not Available Not Available Not Available furosemid e 40 mg tablet Take 1 tablet by mouth once a day 11/12 completed Not Available Not Available Not Available atorvasta tin 40 mg tablet Take 1 tablet by mouth every night 2023 active previous provider Not Available Not Available Not Available methocarb jenni 500 mg tablet active Not Available Not Available No t Available metformin 500 mg tablet Take 1 tablet by mouth once a day 11/10 completed Not Available Not Available Not Available prednison e 10 mg tablet Take 1 tablet every day by oral route. 01/20 completed ED prescrib ed Not Available Not Available Not Available atorvasta tin 20 mg tablet Take 1 tab by mouth daily at bedtime 2013 active previous provider Not Available Not Available Not Available ketoconaz ole 2 % shampoo Shampoo with 1 a small amount as directed every other day alternat e every 2 weeks with the selenium sulfide lotion 12/04 completed Not Available Not Available Not Available cetirizin e 10 mg tablet Take 1 tablet by mouth every night 11/10 completed Not Available Not Available Not Available cefpodoxi me 200 mg tablet Take 1 tablet every 12 hours by oral route for 5 days. 12/04 completed Not Available Not Available Not Available pravastat in 40 mg tablet Take 1 by mouth daily 2013 active previous provider Not Available Not Available Not Available amiodaron e 200 mg tablet Take 1 tablet by mouth once a day 2023 active Not Available Not Available Not Avai lable benzonata te 200 mg capsule Take 1 capsule by mouth three times a day As needed for cough 08/15 completed Not Available Not Available Not Available metoprolo l succinate ER 50 mg tablet,ex tended release 24 hr Take 1 tablet by mouth once a day 10/12 completed Not Available Not Available Not Available hydrocodo ne 5 mg-acetam inophen 325 mg tablet Take 1 tab by mouth every 6 hours as needed for pain 2019 active Not Available Not Available Not Avai lable bacitraci n 500 unit/gram eye ointment Apply 1 a small amount into affected eye four times a day 05/25 completed Not Available Not Available Not Available enalapril maleate 20 mg tablet 1 bid 04/23 completed Not Available Not Available Not Available metoprolo l succinate ER 200 mg tablet,ex tended release 24 hr Take 1 tablet by mouth every day for blood pressure /heart 2019 active Not Available Not Available Not Avai lable FreeStyle Lancets 28 gauge Use 1 lancet subcutan eously three times a day 2023 active Not Available Not Available Not Avai lable lisinopri l 20 mg tablet Take 1 tablet by mouth once a day 11/10 completed Not Available Not Available Not Available ondansetr on HCl 4 mg tablet active Not Available Not Available No t Available prednison e 20 mg tablet TAKE TWO TABLETS BY MOUTH EVERY MORNING WITH FOOD FOR GOUT FLARE OF RIGHT KNEE 01/20 completed Not Available Not Available Not Available Alcohol Pads Apply 1 pad to skin four times a day with insulin 2020 active Not Available Not Available Not Avai lable Viagra 50 mg tablet 1 TAB .prn ED 05/20 completed Not Available Not Available Not Available metoprolo l succinate ER 100 mg tablet,ex tended release 24 hr Take 1 tab by mouth daily 2016 active Not Available Not Available Not Avai lable Lantus U-100 Insulin 100 unit/mL subcutane ous solution Inject 5 units every day by subcutan eous route in the morning. 2023 active [place] [facility] Not Available Not Available cyanocoba yaneth (vit B-12) 1,000 mcg tablet Take 1 tablet by mouth once a day 2022 active Not Available Not Available Not Avai lable amlodipin e 2.5 mg tablet Take 1 tablet by mouth once a day 2023 active Not Available Not Available Not Avai lable clopidogr el 75 mg tablet Take 1 tablet by mouth every day 03/07 completed Not Available Not Available Not Available levofloxa philomena 250 mg tablet two tabs po today, then one po daily for 6 more days 02/12 completed Not Available Not Available Not Available amlodipin e 5 mg tablet Take 1 tablet by mouth once a day 02/03 completed Not Available Not Available Not Available Vasotec 10 mg tablet 1 tab daily 2013 active previous provider Not Available Not Available Not Available allopurin ol 100 mg tablet Take 1/2 of a tablet every other day to prevent gout. 2023 active Not Available Not Available Not Avai lable tramadol 50 mg tablet 1/2 to 1 tablet by mouth TID 01/20 completed Not Available Not Available Not Available acetamino phen 500 mg tablet Take 2 tablets by oral route. 10/12 completed Not Available Not Available Not Available triamcino lone acetonide 0.1 % topical cream Apply 1 a small amount to affected area three times a day as needed 04/13 completed Not Available Not Available Not Available verapamil 120 mg tablet Take 1 by mouth three times daily 02/12 completed previous provider Not Available Not Available Not Available magnesium oxide 400 mg (241.3 mg magnesium ) tablet Take 1 tablet by mouth twice a day 2023 active Not Available Not Available Not Avai lable Verapamil HCl CR 120 mg tablet,ex tended release 1tab three times daily 02/22 completed Not Available Not Available Not Available Nitrostat 0.4 mg sublingua l tablet Place 1 tablet under tongue 2016 active Not Available Not Available Not Avai lable tamsulosi n 0.4 mg capsule Take 1 capsule by mouth once a day 2023 active Not Available Not Available Not Avai lable furosemid e 80 mg tablet Take 1 tablet by mouth once a day 2023 active Not Available Not Available Not Avai lable Humalog U-100 Insulin 100 unit/mL subcutane ous solution Inject 6 unit subcutan eously three times a day with meals 01/13 completed Not Available Not Available Not Available Flagyl 500 mg tablet three times daily 03/03 completed Not Available Not Available Not Available amlodipin e 10 mg tablet Take 1 tablet by mouth once a day 2020 active Not Available Not Available Not Avai lable Glucotrol 10 mg tablet 1 TAB .QAM DM 04/22 completed Not Available Not Available Not Available methylpre dnisolone 8 mg tablet Take 3 tablets by mouth each morning until knee pain resolves then reduce to 2 tabs for 3 days, then 1 tab for 3 days, then 1/2 tab for 3 days, then stop. 12/04 completed Not Available Not Available Not Available simvastat in 20 mg tablet 1TAB QD 10/09 completed Not Available Not Available Not Available Cipro 500 mg tablet 1TAB twice daily 05/20 completed Not Available Not Available Not Available nystatin 100,000 unit/gram topical cream apply twice daily to affected area 2019 active Not Available Not Available Not Avai lable lisinopri l 10 mg tablet Take 1 tablet every day by oral route. 2023 active Not Available Not Available Not Avai lable prednison e 50 mg tablet Take 1 tablet by mouth once a day 09/02 completed Not Available Not Available Not Available indometha philomena 25 mg capsule TAKE ONE CAPSULE BY MOUTH THREE TIMES A DAY NEEDED FOR PAIN- ADMINIST ER WITH FOOD OR MILK 06/05 completed Not Available Not Available Not Available betametha sone dipropion ate 0.05 % topical cream Apply a small amount to affected area twice a day as needed 07/13 completed Not Available Not Available Not Available Magnesium -Oxide 400 mg tablet one po BID 2017 active Not Available Not Available Not Avai lable hydrocort isone 2.5 % topical cream apply cream twice a day as needed to affected area on scalp 12/22 completed [facility] Not Available Not Available Not Available aspirin 81 mg tablet 11/10 completed Not Available Not Available Not Available pravastat in 20 mg tablet Take 1 by mouth at bedtime 2013 active previous provider Not Available Not Available Not Available lisinopri l 5 mg tablet Take 1 tablet by mouth once a day 12/04 completed Not Available Not Available Not Available mupirocin 2 % topical ointment Apply a small amount to affected area twice a day with clotridari borrero, to tip of penis 11/03 completed Not Available Not Available Not Available furosemid e 20 mg tablet Take 1 tab by mouth once daily for fluid 02/12 completed Not Available Not Available Not Available gabapenti n 100 mg capsule Take 1 capsule 3 times a day by oral route for 14 days. 2023 active prescrib ed by [facility] ED Not Available Not Available Not Available Novolog U-100 Insulin aspart 100 unit/mL subcutane ous solution Inject 9 unit subcutan eously three times a day before meals 06/05 completed Not Available Not Available Not Available Glucotrol 5 mg tablet 1 TAB .QAM DM 05/14 completed Not Available Not Available Not Available fluocinol one 0.01 % topical solution Apply 1 a small amount topical every night apply to scalp 2022 active Not Available Not Available Not Avai lable Aspir-81 mg tablet,de layed release 2014 active Not Available Not Available Not Avai lable albuterol sulfate HFA 90 mcg/actua tion aerosol inhaler Inhale 2 puff using inhaler every four to six hours as needed 08/15 completed Not Available Not Available Not Available fluocinon cherelle 0.05 % topical cream apply daily to affected area as needed 02/12 completed Not Available Not Available Not Available clotrimaz ole 1 % topical cream Apply 1 a small amount to affected area twice a day use for one week after rash resolves 12/22 completed Not Available Not Available Not Available acetamino phen 500 mg capsule Take 2 capsules every 6 hours by oral route as needed for 30 days. 2023 active Not Available Not Available Not Avai lable doxycycli ne hyclate 100 mg tablet Take 1 tab by mouth daily x 7 days 10/22 completed Not Available Not Available Not Available calcitrio l 0.25 mcg capsule Take 1 capsule by mouth three times a week 2023 active Not Available Not Available Not Avai lable oxycodone 5 mg tablet 01/20 completed oxycodon e 5 mg capsule 5 mg PO Q8H PRNQty: 5 0RF Not Available Not Available Not Available cholecalc iferol (vitamin D3) 25 mcg (1,000 unit) capsule Take 1 capsule every day by oral route. 2023 active Not Available Not Available Not Avai lable Novolog FlexPen U-100 Insulin aspart 100 unit/mL (3 mL) subcutane ous Inject 9 units 3 times a day by subcutan eous route before meals. 2023 active Not Available Not Available Not Avai lable diltiazem ER 420 mg tablet,ex tended release 24 hr 1CAP qd 01/11 completed Not Available Not Available Not Available Pen Needle 31 gauge x 5/16 inject 1 needle subcutan eously four times a day USE WITH INSULIN ONCE DAILY 04/04 completed Not Available Not Available Not Available BD Ultra-Fin e Mini Pen Needle 31 gauge x 3/16 Use with pen injector to inject insulin once daily active Not Available Not Available No t Available Levemir U-100 Insulin 100 unit/mL subcutane ous solution Inject 25 unit subcutan eously every morning 04/08 completed Not Available Not Available Not Available Zostavax (PF) 05/20 completed Not Available Not Available Not Available cholecalc iferol (vitamin D3) 25 mcg (1,000 unit) tablet Take 1 tablet by mouth once a day 12/04 completed DUPLICAT E Not Available Not Available Not Available sitaglipt in phosphate 50 mg tablet Take 1 tablet by mouth once a day 2023 active Not Available Not Available Not Avai lable Januvia 25 mg tablet Take 1 tablet by mouth once a day 02/01 completed Not Available Not Available Not Available FreeStyle Lite Meter kit Dx: type 2 DM, check blood sugars daily 11/10 completed Not Available Not Available Not Available FreeStyle Lite Strips 1 daily 12/07 completed Not Available Not Available Not Available insulin glargine (U-100) 100 unit/mL (3 mL) subcutane ous pen Inject 5 units every day by subcutan eous route. 2023 active Not Available Not Available Not Avai lablizbeth oseltamiv ir 30 mg capsule Take 1 capsule by mouth once a day 08/13 completed Not Available Not Available Not Available Humalog KwikPen (U-100) Insulin 100 unit/mL subcutane ous Inject 6 unit subcutan eously three times a day with meals 12/14 completed Not Available Not Available Not Available diclofena c 1 % topical gel Apply 1 a small amount to affected area three times a day 2023 active Not Available Not Available Not Avai lable OneTouch Delica Lancets 33 gauge 11/22 completed Not Available Not Available Not Available Accu-Chek Rain Plus test strips 2 strips daily 2023 active Not Available Not Available Not Avai lablizbeth Comfort EZ Insulin Syringe 0.3 mL 31 gauge x 09/17 Use 1 syringe as directed five times a day with insulin 11/16 completed Not Available Not Available Not Available Eliquis 2.5 mg tablet Take 1 tablet by mouth twice a day 2023 active Not Available Not Available Not Avai lable BD Insulin Syringe Ultra-Fin e 0.5 mL 31 gauge x 5/16 USE DIRECTED WITH HUMALOG AND LANTUS FOR TOTAL OF 4 DAILY active Not Available Not Available No t Available aloglipti n 6.25 mg tablet Take 1 tablet by mouth once a day for blood sugar 12/04 completed d/c of coverage by [facility], switchin g to sitoglip franc[place] Not Available Not Available Not Available Levemir FlexTouch U-100 Insulin 100 unit/mL (3 mL) subcutane ous pen Inject 25 unit subcutan eously once a day 04/08 completed Not Available Not Available Not Available Trulicity 0.75 mg/0.5 mL subcutane ous pen injector inject once a week for blood sugar 2018 active Not Available Not Available Not Avai lable selenium sulfide 2.5 % lotion Apply 1 a small amount to affected area every other day Use every other day, lather and rinse out after 2-3 minutes 12/04 completed Not Available Not Available Not Available insulin syringe U-100 with needle 1/2 mL 31 gauge x 1/4 Inject 1 syringe subcutan eously four times a day 11/20 completed Not Available Not Available Not Available metoprolo l succinate ER 25 mg capsule sprinkle, ext. release 24 hr Take 1 capsule every day by oral route. 2023 active Not Available Not Available Not Avai lable magnesium 400 mg (as magnesium oxide) tablet Take 1 tablet twice a day by oral route. 06/05 completed Not Available Not Available Not Available tramadol 25 mg tablet Take 1 or 2 tablets up to three times per day. Max 6 per day. 01/20 completed Not Available Not Available Not Available Vitals Date Recorded Body height Body mass index (BMI) Body weight Body temperature Heart rate Respiratory rate Systolic blood pressure Diastolic blood pressure Provider Name and Address Organization Details Last Updated DateTime 170.69 cm 29.8 kg/m2 51965.5 8 g 98.2 [degF] 74 /min 14 /min 108 mm[Hg] 62 mm[Hg] KURT RIVAS RN [facility] 4 12:32:41 Date Recorded Body height Body mass index (BMI) Body weight Body temperature Heart rate Systolic blood pressure Diastolic blood pressure Provider Name and Address Organization Details Last Updated DateTime 4 170.69 cm 30 kg/m2 19138.8 9 g 97.5 [degF] 85 /min 106 mm[Hg] 50 mm[Hg] MARK WILLSON MA [facility] 4 11:10:17 Date Recorded Body height Body mass index (BMI) Body weight Body temperature Oxygen saturation Oxygen saturation in Arterial blood by Pulse oximetry Heart rate Systolic blood pressure Diastolic blood pressure Provider Name and Address Organization Details Last Updated DateTime 170.69 cm 29.9 kg/m2 18848.7 4 g 98.1 [degF] 98 % 98 % 58 /min 108 mm[Hg] 60 mm[Hg] MARK WILLSON MA [facility] 16:32:51 Date Recorded Body height Body mass index (BMI) Body weight Body temperature Oxygen saturation Oxygen saturation in Arterial blood by Pulse oximetry Heart rate Systolic blood pressure Diastolic blood pressure Provider Name and Address Organization Details Last Updated DateTime 4 170.69 cm 28.4 kg/m2 01369.2 5 g 97.5 [degF] 98 % 98 % 66 /min 100 mm[Hg] 50 mm[Hg] MARK WILLSON MA [facility] 4 09:19:03 Date Recorded Body height Systolic blood pressure Diastolic blood pressure Provider Name and Address Organization Details Last Updated DateTime 01/23/2024 170.69 cm 116 mm[Hg] 58 mm[Hg] MARK WILLSON MA [facility] 01/23/2024 08:41:44 Social History Question Answer Notes LastModified by Organizat ion Details LastModified Time Tobacco Smoking Status Former Smoker Quit 2009 KURT RIVAS RN [facility], [facility] 12/05/2023 12:30:15 When Did You Quit Smoking? 16+yearssince joya natarajan Information not available 12/05/2023 How Often Does Anyone, Including Family, Physically Hurt You? Never Information not available 09/25/2023 How Often Does Anyone, Including Family, Insult Or Talk Down To You? Never Information no t available 09/25/2023 How Often Does Anyone, Including Family, Threaten You With Harm? Never Information not available 09/25/2023 How Often Does Anyone, Including Family, Scream Or Curse At You? Never Information not available 09/25/2023 Within The Past 12 Months, You Worried That Your Food Would Run Out Before You Got Money To Buy More. Sometimes True Information not available 09/25/2023 Within The Past 12 Months, The Food You Bought Just Didn't Last And You Didn't Have Money To Get More. Sometimes True Information not available 09/25/2023 How Hard Is It For You To Pay For The Very Basics Like Food, Housing, Medical Care, And Heating? Would You Say It Is: Very Hard Information not available 09/25/2023 In The Past 12 Months, Has Lack Of Reliable Transportation Kept You From Medical Appointments, Meetings, Work Or From Getting Things Needed For Daily Living? No Information not available 09/25/2023 What Is Your Housing Situation Today? I Have Housing. Information not available 09/25/2023 How Often In The Past Year Have You Used Marijuana (including Smoking, Vaping, Dabbing, Or Edibles)? Never Information not available 09/25/2023 How Often In The Past Year Have You Used Prescription Medications That Were Not Prescribed To You? Never Information n ot available 09/25/2023 How Often In The Past Year Have You Taken Your Own Prescription Medication More Than The Way It Was Prescribed Or For Different Reasons Than Its Intended Purpose? Never Information no t available 09/25/2023 How Often In The Past Year Have You Used Other Drugs (for Example, Heroin, Cocaine, Meth, Salvia, Inhalants)? Never Information not available 09/25/2023 Have You Ever Used IV Drugs? No Information not available 09/25/2023 Date Of Most Recent SBINS 09/25/2023 Information not available 09/25/2023 What Was The Date Of Your Most Recent Tobacco Screening? 10/09/2023 Information not available 10/09/2023 Has Tobacco Cessation Counseling Been Provided? Yes Information not available 10/09/2023 On What Date Was Tobacco Cessation Counseling Provided? 10/09/2023 Information not available 10/09/2023 Do You Or Have You Ever Used Any Other Forms Of Tobacco Or Nicotine? No Information not available 10/09/2023 Sex: Male Functional Status None recorded. Mental Status None recorded. Family History Nothing Reported Notes:*Problem: Mother: dece ased age cause Father: age cause Sisters: 1 sister A&W Brothers: 1 brother=HPTN CAD (brother with heart transplant at age 54). Children: none Family History of: Hypertension: yes Hyperlipidemia: yes Coronary heart disease: yes Diabetes mellitus: yes Breast cancer: no Colorectal cancer: no Alcoholism: yes Mental illness: no Positive for early heart disease, particularly in his brother. No cancers. Medical History No medical history recorded. Immunizations Vaccine Type Date Status Provider Name and Address Organization Details Recorded Time Tdap 10/26/2019 completed Not Available [facility] 05:31:57 Influenza, high-dose, trivalent, PF 04/16/2019 completed Not Available [facility] 03/14/2023 05:31:57 Td(adult) unspecified formulation 10/09/2009 completed Not Available [facility] 03/14/2023 05:31:57 Td(adult) unspecified formulation 03/10/1998 completed Not Available [facility] 03/14/2023 05:31:57 Influenza, split virus, trivalent, preservative 01/20/2015 completed Not Available [facility] 03/14/2023 05:31:57 Influenza, split virus, trivalent, preservative 03/22/2016 completed Not Available [facility] 03/14/2023 05:31:57 Pneumococcal Conjugate, unspecified formulation 02/03/2017 completed Not Available [facility] 03/14/2023 05:31:57 Influenza, high-dose, quadrivalent, PF 02/02/2020 completed Not Available [facility] 03/14/2023 05:31:57 Influenza, high-dose, quadrivalent, PF 02/01/2021 completed Not Available [facility] 03/14/2023 05:31:57 Influenza, high-dose, quadrivalent, PF 02/18/2022 completed Not Available [facility] 03/14/2023 05:31:57 COVID-19, mRNA, LNP-S, PF, 100 mcg/0.5mL dose or 50 mcg/0.25mL dose 06/15/2020 completed Not Available [facility] 03/14/2023 05:31:57 COVID-19, mRNA, LNP-S, PF, 100 mcg/0.5mL dose or 50 mcg/0.25mL dose 07/14/2020 completed Not Available [facility] 03/14/2023 05:31:57 COVID-19, mRNA, LNP-S, PF, 100 mcg/0.5mL dose or 50 mcg/0.25mL dose 09/13/2021 completed Not Available [facility] 03/14/2023 05:31:58 SARS-COV-2 (COVID-19) vaccine, UNSPECIFIED 03/03/2021 completed Not Available [facility] 03/14/2023 05:31:58 COVID-19, mRNA, LNP-S, bivalent, PF, 30 mcg/0.3 mL dose 02/18/2022 completed Not Available [facility] 03/14/20 05:31:58 pneumococcal polysaccharide PPV23 03/23/2002 completed Not Available [facility] 2022 05:31:58 Hep B, unspecified formulation 07/25/2010 completed Not Available [facility] 03/14/2023 05:31:58 Hep B, unspecified formulation 01/29/2010 completed Not Available [facility] 03/14/2023 05:31:58 Hep B, unspecified formulation 02/27/2010 completed Not Available [facility] 03/14/2023 05:31:58 Hep A, unspecified formulation 07/25/2010 completed Not Available [facility] 03/14/2023 05:31:58 Hep A, unspecified formulation 01/29/2010 completed Not Available [facility] 03/14/2023 05:31:58 influenza, unspecified formulation 02/03/2017 completed Not Available [facility] 03/14/2023 05:31:58 influenza, unspecified formulation 02/05/2011 completed Not Available [facility] 03/14/2023 05:31:58 influenza, unspecified formulation 02/11/2012 completed Not Available [facility] 03/14/2023 05:31:58 influenza, unspecified formulation 02/22/2014 completed Not Available [facility] 03/14/2023 05:31:58 Influenza, high-dose, quadrivalent, PF 03/06/2023 completed Not Available [facility] 05/16/2023 05:31:30 COVID-19, mRNA, LNP-S, PF, bushra-sucrose, 30 mcg/0.3 mL 03/06/2023 completed Not Available [facility] 05/16/2023 05:31:30 Past Encounters Encounter ID Performer Location Encounter Start Date Encounter Closed Date Diagnosis/Indication Diagnosis SNOMED-CT Code Diagnosis ICD10 Code [id number] ARELY TANVIRJUAN C [facility] [address] [place] [address] 06/05/2023 08:17:22 06/05/2023 09:10:48 Chronic kidney disease stage 4 923972199 N18.4 Heart failure 65544366 I 50.9 Type 2 alessandra betes mellitus without complication 579302091 E11.9 Thoracic a ortic aneurysm without rupture 80149052 I71.20 [id number] Jelly Faria RN [address] [place] [address] 07/24/2023 10:20:25 07/24/2023 11:15:03 Chronic kidney disease stage 4 550447543 N18.4 [id number] QUINN BAKER [facility] [address] [place] [address] 09/25/2023 10:57:32 09/25/2023 12:38:02 Type 2 diabetes mellitus without complication 322156193 E11.9 Chronic ki dney disease stage 4 407274670 N18.4 Recurrent falls 79518158 2 R29.6 Aneurysm o f thoracic aorta 090260424 I71.20 Impacted c erumen of bilateral ears 1710568788 453797 H61.23 Trigger fi nger of left hand 3659630944 3772415 M65.30 Bursitis o f olecranon of left elbow 4010363109 90766 M70.22 Unsteady when walking 22 213166 R26.89 [id number] JAYCEE STANLEY PA-C [address] [place] [address] 10/09/2023 13:04:43 10/09/2023 14:15:50 Pain of left knee joint 6745246717 36499 M25.[id number] [place] [address] 10/13/2023 08:40:55 10/13/2023 10:50:17 Pain of left knee joint 8904210920 08394 M25.562 Chronic ki dney disease stage 4 010914421 N18.4 Essential hypertension 38900617 I10 [id number] QUINN BAKER [facility] [address] [place] [address] 11/11/2023 13:33:59 11/11/2023 14:41:43 Type 2 diabetes mellitus without complication 869114911 E11.9 Gout 43965666 M10.9 Trigger th umb of left hand 6249564078 70975 M65.924 [id number] LEONA BERRIOS [facility] [address] [place] [address] 12/05/2023 11:51:55 12/05/2023 13:07:38 Gout 71653934 M10.9 Acute gout 521387597 M10 .9 [id number] QUINN BAKER [facility] [address] [place] [address] 12/26/2023 10:55:10 12/26/2023 12:08:13 Acute low back pain 533349772 M54.50 Gout 81423822 M10.9 Spinal jerod nosis of lumbar region 93749700 M48.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 580987348 E11.9 Chronic ki dney disease stage 4 617947739 N18.4 [id number] QUINN BAKER [facility] [address] [place] [address] 12/31/2023 16:16:36 01/06/2024 09:07:42 Pain in testicle 84425542 N50.776 [id number] QUINN BAKER [facility] [address] [place] [address] 01/21/2024 09:08:54 01/21/2024 09:53:59 Low blood pressure 55483670 I95.9 [id number] MARK WILLSON MA [facility] [address] [place] [address] 01/23/2024 08:23:51 01/23/2024 08:50:32 Essential hypertension 46943286 I10 Type 2 alessandra betes mellitus 35965860 E11.9 Health Concerns Section Related Observation LastModified by Organization Detai ls LastModified Time None Recorded Concern Status LastModified by Organization Details LastModified Time None Recorded Advance Directives Directive None Recorded Payers Encounter Date Sequence Insurance Name Policy Number Policy Stewart Covered Member ID Stewart Member ID Guarantor Name 12/05/2023 1 [facility] (MEDICARE REPLACEMENT/A DVANTAGE - PPO) [id number] Cesar Thompson [id number] Cesar Thompson 12/26/2023 [place] - [facility] (MEDICARE) Cesar Thompson [id number] Cesar Thompson 12/26/2023 1 [facility] (MEDICARE REPLACEMENT/A DVANTAGE - PPO) [id number] Cesar Thompson [id number] Cesar Thompson 12/31/2023 1 [facility] (MEDICARE REPLACEMENT/A DVANTAGE - PPO) [id number] Cesar Thompson [id number] Cesar Thompson 01/21/2024 1 [facility] (MEDICARE REPLACEMENT/A DVANTAGE - PPO) [id number] Cesar Thompson [id number] Cesar Thompson 01/23/2024 1 [facility] (MEDICARE REPLACEMENT/A DVANTAGE - PPO) [id number] Cesar Thompson [id number] Cesar Thompson Notes Date Note Type Note Provider Name and Address Organization Details Recorded Time 12/05/2023 text/html HPI Notes: Mike burt is an 88-year-old male patient of Arely Wright is here today for an acute visit. caregiver Montse states Cesar has (R) knee pain/edema for past 3 days or so. Limping and difficulty with balance due to swelling, pain and stiffness. Hard to bend knee or straighten knee. Says it feels tight. . Montse says this same thing happened with left knee about 2 months ago. Was seen initially at [facility] on 10/09/2023 for pain of left knee joint with swelling x-ray of left knee unremarkable other than the effusion present. They did Lyme antibody screening and gave him prednisone. Symptoms did resolve with prednisone after 5 days of 40 mg. He was seen by primary care for follow-up on 10/13/2023 and a uric acid level was drawn as well as CBC and ESR. ESR was elevated uric acid elevated at 9.8. Orthopedics saw him for an issue with his thumb and did review his left knee joint effusion and pain and did confirm that it did appear to be likely a gout acute flare. Uric acid level repeated again on 10/24/2023 and was still elevated at 9.9 which confirms likely was indeed a gout flare. Uric acid repeated again on 11/11/2023 and was elevated again but higher at 10.9 ESR elevated as well. Again confirmed this is gout outside of acute infection. His PCP did try to reach out for him to start on allopurinol preventative medication but patient did not get message. Discussed that his right knee today with the warmth pain swelling yet again looks like a gout flare. Discussed preventative medication with him today as well as treatment again today. Patient and caregiver declined to start preventative medication until following up with PCP in another 3 weeks. Advised that likely he would continue to get recurrent gout flares and talked about things to avoid in diet to prevent recurrent flares. Denies fever, chills, body aches or malaise. Denies skin color change. No sign of infection in the joint no redness. LEONA BERRIOS [address], [place], [address], [facility]. 12/07/2023 00:37:49 12/26/2023 text/html HPI Notes: Pt, [age]-M, here for ROSSY from [facility] ED 12/21/2023 and 12/24/2023. Pt. seen and d/c for back pain twice. The first time he was d/c with Medrol dose pack and Gabapentin 100 mg, the second with methocarbomal and lidocaine patch. Medical hx. notable for heart failure, thoracic abdominal aortic aneurysm, HTN, CKD 4, a-flutter, BPH. Back Pain: CT imaging of Lumbar spine showed CT recons of the lumbar spine: Age-appropriate degenerative changes are seen in the lumbar spine. No acute fracture or subluxation. There is disc space narrowing and vacuum discs at L3-4, L4-5 and L5-S1. Degenerative changes of the facets are seen at multiple levels of the lumbar spine but particularly at L3-L4. There is marked central spinal canal stenosis at L3-L4 and moderately severe at L4-L5. Multilevel neural foraminal stenosis is seen in the lower lumbar spine. The neural foraminal stenosis is most marked at L3-4 and L4-L5. He has history of recurrent falls, unsteady gait. I see no history of prior PT, prior specialist consult. PT REPORTS ALL OF HIS SYMPTOMS HAVE IMPROVED WITH SOME PRUNE JUICE AND SUPPOSITORY. Dmii: Last Hga1c was 6.9% CKD 4: He was followed with [facility]. Thoracic AAA: He was referred back to [facility] for his routine monitoring and they have been unable to contact him. Gout: Pt. had flare at start of December, seen at . Chart reviews shows that he has had flare in the past in 2022 and pt. didn't want to start medication at prior visits. He has had several flares now resulting in trips to /extra office visits. Pt. caregiver reports she does have upcoming appt. at [facility] [address] [place], [address], [place] [facility], [facility]. 12/26/2023 13:29:55 12/31/2023 text/html HPI Notes: Pt, 9 7-M, seen at ED 12/28/2023 with testicular pain and on US pt. 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 He was given lidocaine patches, advised to schedule Tylenol, and given Oxycodone 5 mg for breakthrough pain. Pt. states he has been regular with the Tylenol. The oxycodone helps, but only for 3 to 4 hours and they are almost out as I believe they were only given a quantity of [address]. [address], [place], [address], [facility]. 12/31/2023 17:13:53 01/21/2024 text/html HPI Notes: Pt, h mimi, 88-M, sent over from outside provider office for concern about low BP. BP is 100/50. He has multiple agents including 80 mg of Furosemide. He is using compression stockings. Pt. with increase in lightheadedness when getting up and walking recently. No fevers, no chills. Feels tired often, but up a lot of the night and day time napping. [address], [place], [address], [facility], [facility]. 01/21/2024 17:54:34
--- OUTSIDE RECORDS SUMMARY | 2024-01-25 13:44 | XMS_ITS | Encounter Summary ---
Author Organization [facility] Address [facility] [place] [address] Care Team Providers Care Instantizer Operator Name Role Phone Arely Vickers MD Primary Care Provider [phone] Reason for Visit * Reason Comments Abdominal Pain Encounter Details Date Type Department Care Team (Late st Contact Info) Description 04/12/2011 10:58 AM EST - 04/12/2011 12:26 PM EST Surgery [place] [address] Steven Borges MD [facility] [place] [address] @EVG-PLACEMENT, CUFF OR EXT. AORTIC OR ILIAC [...] For any problems or questions please call [phone] Angela Mujica RN Vascular Nurse Clinician Loretta [...] yesterday. Will replete K again today. ID: [id number] trending down - patient on Vanc/zosyn for superimposed diverticulitis. Will start PO cipro/flagyl and have him continue for 7 more days. Dispo: Home today. * Christopher Barnes RN - 04/15/2011 4:05 PM EST Patient received from [facility] to [facility] in stable condition. 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 PRIMARY CARE PHYSICIAN: ARELY VICKERS MD [place] [phone] / [place] [id number] POTENTIAL DISCHARGE NEEDS: None anticipated; states can monitor his BP at home PATIENT/FAMILY EDUCATION NEEDS:per discharge summary ANTICIPATED BARRIERS TO DISCHARGE:none TRANSPORTATION @ D/C:friend Montse PLAN: Vascular CRC will continue to monitor progress, follow for continuity of care and assist withdischarge planning while hospitalized * Abhi Dukes, PharmD - 04/14/2011 2:08 PM EST Clinical Pharmacist Note-Vanc Cali Thompson [id number] 1935 Cali Thompson is a 75 y.o. [...] have. Alternately, during off-hours you may call [phone] to contact a pharmacist. ABHI DUKES PHARMD [...] - 04/13/2011 3:01 PM EST Cali Thompson [id number] 04/13/2011 04/12/2011 7:04 AM Critical Care Medicine [...] Q12H ??? DISCONTD: ceFAZolin 2 g Intravenous Color Tester to OR ??? DISCONTD: vancomycin 1 g Intravenous Q12H No Known Allergies EXAM: Temp: [35.7 ??C (96.3 ??F)-37.2 ??C (99 ??F)] Heart Rate: [47-80] Resp: [10-19] BP: (104)/(61) SpO2: [91 %-98 %] I/O last 3 completed shifts: In: 06483 [I.V.:43648] Out: 2300 [Urine:1700; Blood:600] I/O this shift: [...] 97 % SpO2: [91 %-98 %] SIMV/PS [id number] PEEP 5 FiO2 40% Last ABG 7.36/35/70/19 Intake/Output Summary (Last 24 hours) at 04/13/11 1155 Last data filed at 04/13/11 1000 Gross per 24 hour Intake 05795 ml Output 2775 ml Net 9784 ml [...] PM EST Clinical Pharmacist Note-Vanc Cali Thompson [id number] 1935 Cali Thompson is a 75 y.o. [...] have. Alternately, during off-hours you may call [phone] to contact a pharmacist. JIA VICTORIA PHARMD Pager [phone] * Chris Johnson - 04/12/2011 8:28 PM [...] 04/12/11 194 Gross per 24 hour Intake 58363 ml Output 1755 ml Net 8949 ml [...] Gill MD - 04/12/2011 8:08 AM EST [facility] staff procedure note: Under sterile cond RIGHT radial a-line placed for hemodynamic monitoring. Hand intact, excellent waveform. documented in this encounter H&P Notes * Poli Chowdhury MD - 04/12/2011 8:22 AM EST Cali Thompson [id number] 04/12/2011 04/12/2011 7:04 AM Critical Care Medicine [...] Once ??? DISCONTD: ceFAZolin 2 g Intravenous Color Tester to OR No Known Allergies EXAM: Temp: [...] prior known history of AAA, presents to [facility] with c/o abdominal pain for [...] urgently once medically optimized, endovascular graft candidate [facility] Staff: I saw and evaluated [...] 04/17/2011 11:15 AM ESTAssociated Order(s): SCAN DOC: ANTHROPOLOGIST PHYSICAL documented in this encounter ED Notes * [...] current pain regimen. Encouraged to notify staff interpreter when inneed of pain medication. 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 On the right [...] removed the delivery system and advanced a 20-Anguillan [place] dry seal up the right side. We [...] Operative Note Patient Name: Cali Thompson : [id number] MR#: [id number] Case Date: 04/12/2011 Surgeon: Surgeon(s) and Role: * STEVEN BORGES MD - Primary * JOAN VAIL MD - Fellow Preoperative diagnosis: symptomatic infrarenal aortic aneurysm Postoperative diagnosis: same Procedure(s): Bilateral femoral arterial exposures Endovascular repair of aortic aneurysm, using Curiosidy Flex [id number] via right; ipsilateralextension with TFLE 16-56; contralateral [...] exposures Endovascular repair of aortic aneurysm, using Curiosidy Flex [id number] via right; ipsilateralextension with TFLE 16-56; contralateral extension with TFLE 16-73 History of Presentation: 75 year old male without prior known history of AAA, presented to [facility] with complaints of abdominal pain [...] For any problems or questions please call [phone] Angela Mujica RN Vascular Nurse Clinician Loretta Matthews RN Vascular Nurse Clinician Future Appointments and Orders Future Orders Please Complete By Expires CT abdomen & pelvis with contrast [[id number] Custom] 05/13/11 04/12/12 Process Instructions: Scheduling Instructions: [...] to the ED as a transfer from [facility] for vascular with a dx [...] bedside upon pt arrival. Pt placed on monitoring and evaluation advisor, labs obtained and sent. Pt c/o having [...] 12:15 PM EDT Laboratory Appointment Lab [address] [place] [address] 02/02/2024 2:[address] [place] [phone] Pascale Barboza, RADHA [facility] [place] [address] 02/02/2024 2:30 PM EDT Office Visit [place] [address] Erik Gill MD [facility] [place] [address] documented as of this encounter Procedures Procedure [...] IMPLANTABLE DEVICES SCAN 04/17/2011 11:15 AM EST ANTHROPOLOGIST PHYSICAL SCAN 04/17/2011 11:15 AM EST POCT GLUCOSE [...] SCAN EXT O RDR/RSLT * SCAN DOC: ANTHROPOLOGIST PHYSICAL (04/17/2011 11:15 AM EST) Anatomical Region Laterality Modality Other Narrative 04/17/2011 3:20 PM EST Procedure Note Provider, Scanning - 04/17/2011 11:15 AM EST Scanning Provider MEDIA MGR SCAN EXT O RDR/RSLT * (ABNORMAL) POCT GLUCOSE LAB USE ONLY (04/16/2011 10:58 AM EST) Glucose, POC 257(H) 60 - 199 mg/dL [facility] [employer] Comment: Supplemental ranges: <110 mg/dL before meals <200 mg/dL all other times of the day Blood specimen (specimen) 04/16/2011 10:58 AM EST 04/16/2011 10:58 AM EST Randy Padilla MD POINT OF CARE TEST O RDERABLES [facility] [employer] * POCT GLUCOSE LAB USE ONLY (04/16/2011 7:21 AM EST) Glucose, POC 181 60 - 199 mg/dL [facility] Comment: Supplemental ranges: <110 mg/dL before meals <200 mg/dL all other times of the day Blood specimen (specimen) 04/16/2011 7:21 AM EST 04/16/2011 7:21 AM EST Randy Padilla MD POINT OF CARE TEST O RDERABLES [facility] * (ABNORMAL) DIFFERENTIAL, AUTOMATED (04/16/2011 6:08 AM EST) Pathologist [facility] Neutrophil % 65.0 34.0 - 71.0 % [...] Metabolic Panel (non-fasting) (04/16/2011 6:08 AM EST) Pathologist [facility] Glucose 168 60 - 199 mg/dL CERNER [...] ORDERABLES Performing Organization Address [facility] Co de Phone Number CERNER MILLENNIUM [...] HEMATOLOGY ORDERABLE S CERMARTI MILLENNIUM * (ABNORMAL) POCT GLUCOSE LAB USE ONLY (04/15/2011 8:59 PM EST) Glucose, POC 217(H) 60 - 199 mg/dL [facility]ERNER [facility]NI[facility] Comment: Supplemental ranges: <110 mg/dL before meals <200 mg/dL all other times of the day Blood specimen (specimen) 04/15/2011 8:59 PM EST 04/15/2011 8:59 PM EST Randy Padilla MD POINT OF CARE TEST O RDERAJAZZY Performing Organization Address [facility] Phone Number [facility] [employer] * POCT GLUCOSE LAB USE ONLY (04/15/2011 4:07 PM EST) Glucose, POC 162 60 - 199 mg/dL [facility] [employer] Comment: Supplemental ranges: <110 mg/dL before meals <200 mg/dL all other times of the day Blood specimen (specimen) 04/15/2011 4:07 PM EST 04/15/2011 4:07 PM EST Randy Padilla MD POINT OF CARE TEST O BHASKAR Performing Organization Address [facility] Phone Number [facility] [employer] * POCT GLUCOSE LAB USE ONLY (04/15/2011 12:46 PM EST) Glucose, POC 157 60 - 199 mg/dL [facility] [employer] Comment: Supplemental ranges: <110 mg/dL before meals <200 mg/dL all other times of the day Blood specimen (specimen) 04/15/2011 12:46 PM EST 04/15/2011 12:46 PM EST Randy Padilla MD POINT OF CARE TEST O BHASKAR Performing Organization Address [facility] Phone Number [facility] [employer] * POCT GLUCOSE LAB USE ONLY (04/15/2011 8:34 AM EST) Glucose, POC 173 60 - 199 mg/dL [facility] [employer] Comment: Supplemental ranges: <110 mg/dL before meals <200 mg/dL all other times of the day Blood specimen (specimen) 04/15/2011 8:34 AM EST 04/15/2011 8:34 AM EST Randy Padilla MD POINT OF CARE TEST O RDERABLES CERMARTI MILLENNIUM * (ABNORMAL) DIFFERENTIAL, AUTOMATED (04/15/2011 6:05 [...] EST Randy Padilla MD HEMATOLOGY ORDERABLE S [facility] * (ABNORMAL) Basic Metabolic Panel (non-fasting) (04/15/2011 6:05 AM EST) Pathologist [facility] Glucose 160 60 - 199 mg/dL CERNER [...] EST Randy Padilla MD CHEMISTRY ORDERABLES CERMARTI MILLENNIUM * (ABNORMAL) Potassium (04/15/2011 4:30 AM EST) [...] ORDERABLES Performing Organization Address [facility] Phone Number [facility] [employer] * POCT GLUCOSE LAB USE ONLY (04/14/2011 8:46 PM EST) Glucose, POC 156 60 - 199 mg/dL [facility] [employer] Comment: Supplemental ranges: <110 mg/dL before meals <200 mg/dL all other times of the day Blood specimen (specimen) 04/14/2011 8:46 PM EST 04/14/2011 8:46 PM EST Randy Padilla MD POINT OF CARE TEST O RDERAJAZZY Performing Organization Address [facility] Phone Number [facility] [employer] * POCT GLUCOSE LAB USE ONLY (04/14/2011 5:36 PM EST) Glucose, POC 159 60 - 199 mg/dL [facility] [employer] Comment: Supplemental ranges: <110 mg/dL before meals <200 mg/dL all other times of the day Blood specimen (specimen) 04/14/2011 5:36 PM EST 04/14/2011 5:36 PM EST Randy Padilla MD POINT OF CARE TEST O RDERAJAZZY Performing Organization Address [facility] Phone Number [facility] [employer] * (ABNORMAL) POCT GLUCOSE LAB USE ONLY (04/14/2011 1:31 PM EST) Glucose, POC 201(H) 60 - 199 mg/dL [facility] [employer] Comment: Supplemental ranges: <110 mg/dL before meals <200 mg/dL all other times of the day Blood specimen (specimen) 04/14/2011 1:31 PM EST 04/14/2011 1:31 PM EST Randy Padilla MD POINT OF CARE TEST O BHASKAR Performing Organization Address [facility] Phone Number [facility] * VANCOMYCIN, TROUGH (04/14/2011 10:30 AM EST) Vancomycin, Trough 14.2 mg/L Anna [facility] Comment: Therapeutic range for complicated infections [...] Padilla MD CHEMISTRY ORDERABLES Performing Organization Address [facility] Phone Number [facility] * POCT GLUCOSE LAB USE ONLY (04/14/2011 8:17 AM EST) Glucose, POC 171 60 - 199 mg/dL [facility] Comment: Supplemental ranges: <110 mg/dL before meals <200 mg/dL all other times of the day Blood specimen (specimen) 04/14/2011 8:17 AM EST 04/14/2011 8:17 AM EST Randy Padilla MD POINT OF CARE TEST O RDJACKIE Performing Organization Address [facility] Phone Number [facility] * (ABNORMAL) DIFFERENTIAL, AUTOMATED (04/14/2011 8:00 AM EST) Neutrophil % 78.6(H) 34.0 - 71.0 % [facility] Neutrophil Absolute 14.46(H) 1.50 - 6.30 x10(3)/mc [...] HEMATOLOGY ORDERABLE S Performing Organization Address City/[facility] de Phone Number [facility] * LACTIC ACID, PLASMA (04/14/2011 8:00 AM EST) Lactic Acid 1.3 0.5 - 2.2 mmol/L CERNER MILLENNIUM Blood specimen (specimen) 04/14/2011 8:00 AM EST 04/14/2011 8:31 PM EST Randy Padilla MD CHEMISTRY ORDERABLES Performing Organization Address City/[facility] Co de Phone Number CERMARTI JUNIORIUM * (ABNORMAL) CBC (WITH DIFF) (04/14/2011 8:00 [...] HEMATOLOGY ORDERABLE S DONNIE DIETZ * (ABNORMAL) BASIC METABOLIC PANEL (NON-FASTING) (04/14/2011 [...] EST) Potassium 3.4(L) 3.5 - 5.0 mmol/L [facility] Comment: Please note: ??Patients with WBC >100,000 may have falsely elevated Potassium levels. ??For accurate Potassium quantification in these patients send serum separator tube (gold top) for subsequent determinations. ??Contact the Clinical Chemistry Laboratory if there are any questions. Blood specimen (specimen) 04/13/2011 9:47 PM EST 04/14/2011 7:16 PM EST Randy Padilla MD CHEMISTRY ORDERABLES Performing Organization Address [facility] Co va Phone Number [facility] * POCT GLUCOSE LAB USE ONLY (04/13/2011 8:22 PM EST) Glucose, POC 167 60 - 199 mg/dL [facility] Comment: Supplemental ranges: <110 mg/dL before meals <200 mg/dL all other times of the day Blood specimen (specimen) 04/13/2011 8:22 PM EST 04/13/2011 8:22 PM EST Randy Padilla MD POINT OF CARE TEST O RDJACKIE Performing Organization Address [facility] Phone Number [facility] * POCT GLUCOSE LAB USE ONLY (04/13/2011 5:58 PM EST) Glucose, POC 164 60 - 199 mg/dL [facility] Comment: Supplemental ranges: <110 mg/dL before meals <200 mg/dL all other times of the day Blood specimen (specimen) 04/13/2011 5:58 PM EST 04/13/2011 5:58 PM EST Randy Padilla MD POINT OF CARE TEST O RDJACKIE Performing Organization Address [facility] Co va Phone Number [facility] * (ABNORMAL) BLOOD GAS 2 ARTERIAL (04/13/2011 5:53 PM EST) pH, Arterial 7.37 CERNER MILLENNIUM PCO2, Arterial 30(L) mmHg CERNE R MILLENNIUM PO2, Arterial 79(L) mmHg CERNER MILLENNIUM Bicarbonate, Arterial 16.8(L) mmol/L CERNER MILLENNIUM Base Excess, Arterial -8.4(L) mmol/L CERNER MILLENNIUM Hgb Blood Gas 11.5(L) gm/dL CERNER MILLENNIUM Comment: Total Hemoglobin (in gm/dL) ?Based on [facility] Hematology ranges: ?Age ?Reference Range Less than [...] L plus symptoms. Flow Art 4.0 LPM [facility] Blood specimen (specimen) 04/13/2011 5:53 PM EST 04/13/2011 5:53 PM EST Randy Padilla MD POINT OF CARE TEST O RDERAJAZZY Performing Organization Address [facility] de Phone Number [facility] * Lactic acid, plasma (04/13/2011 5:30 PM EST) Pathologist [facility] Lactic Acid 1.8 0.5 - 2.2 mmol/L [facility] Blood specimen (specimen) 04/13/2011 5:30 PM EST 04/14/2011 7:25 PM EST Randy Padilla MD CHEMISTRY ORDERABLES Performing Organization Address [facility] de Phone Number [facility] * POCT GLUCOSE LAB USE ONLY (04/13/2011 1:08 PM EST) Pathologist [facility] Glucose, POC 117 60 - 199 mg/dL [facility] Comment: Supplemental ranges: <110 mg/dL before meals <200 mg/dL all other times of the day Blood specimen (specimen) 04/13/2011 1:08 PM EST 04/13/2011 1:08 PM EST Randy Padilla MD POINT OF CARE TEST O RDERABLES Performing Organization Address [facility] Co de Phone Number [facility] * (ABNORMAL) BLOOD GAS 2 ARTERIAL (04/13/2011 12:54 PM EST) pH, Arterial 7.40 CERNER MILLENNIUM PCO2, Arterial 28(L) mmHg CERNE R MILLENNIUM PO2, Arterial 89 mmHg CERNER MILLENNIUM Bicarbonate, Arterial 16.9(L) mmol/L CERNER MILLENNIUM Base Excess, Arterial -7.9(L) mmol/L CERNER MILLENNIUM Hgb Blood Gas 10.6(L) gm/dL [facility] MILLENNIUM Comment: Total Hemoglobin (in gm/dL) ?Based on [facility] Hematology ranges: ?Age ?Reference Range Less than [...] al) mmol/L CERNER MILLENNIUM Comment: Noted by band instrument repairer. Please note: Patients with WBC [...] O RDJACKIE Performing Organization Address [facility] Phone Number [facility] * Lactic acid, plasma (04/13/2011 12:45 PM EST) Lactic Acid 1.9 0.5 - 2.2 mmol/L CERNER MILLENNIUM Blood specimen (specimen) 04/13/2011 12:45 PM EST 04/14/2011 7:19 PM EST Randy Padilla MD CHEMISTRY ORDERABLES Performing Organization Address [facility] Phone Number [facility] * POCT GLUCOSE LAB USE ONLY (04/13/2011 8:37 AM EST) Glucose, POC 128 60 - 199 mg/dL [facility] Comment: Supplemental ranges: <110 mg/dL before meals <200 mg/dL all other times of the day Blood specimen (specimen) 04/13/2011 8:37 AM EST 04/13/2011 8:37 AM EST Randy Padilla MD POINT OF CARE TEST O RDERAJAZZY Performing Organization Address [facility] Phone Number [facility] MILLENNIUM * (ABNORMAL) BLOOD GAS 2 ARTERIAL (04/13/2011 8:29 AM EST) [facility] pH, Arterial 7.38 CERNER MILLENNIUM PCO2, Arterial 28(L) mmHg CERNE R MILLENNIUM PO2, Arterial 78(L) mmHg CERNER MILLENNIUM Bicarbonate, Arterial 15.7(L) mmol/L CERNER MILLENNIUM Base Excess, Arterial -9.5(L) mmol/L CERNER MILLENNIUM Hgb Blood Gas 10.2(L) gm/dL CERNER MILLENNIUM Comment: Total Hemoglobin (in gm/dL) ?Based on [facility] Hematology ranges: ?Age ?Reference Range Less than [...] al) mmol/L CERNER MILLENNIUM Comment: noted by numerical control machine tool operator Please note: Patients with WBC >100,000 may have falsely elevated Potassium levels. Contact the Clinical Chemistry Laboratory if there are any questions. ICa Whole Blood 0.91(Criti juan manuel) mmol/L CERNER MILLENNIUM Comment: noted by numerical control machine tool operator Reference Ranges: ?? < 19 yrs: [...] CARE TEST O RDERABLES Performing Organization Address City/[facility]/ZIP Co de Phone Number CERNER MILLENNIUM * (ABNORMAL) Lactic acid, plasma (04/13/2011 5:47 AM EST) Lactic Acid 2.3(H) 0.5 - 2.2 mmol/L CERNER MILLENNIUM Blood specimen (specimen) 04/13/2011 5:47 AM EST 04/13/2011 5:55 AM EST Randy Padilla MD CHEMISTRY ORDERABLES Performing Organization Address [facility]/ZIP Co de Phone Number CERNER [...] (in gm/dL) ?Based on [facility] Hematology ranges: ?Age ?Reference Range Less than [...] S Performing Organization Address [facility] Phone Number [facility] * APTT (04/13/2011 4:00 AM EST) Partial Thromboplastin Time 27 25 - 37 sec [facility] MILLENNIUM Comment: Recommended therapeutic PTT range for full dose unfractionated heparin is 80-114 seconds. Blood specimen (specimen) 04/13/2011 4:00 AM EST 04/13/2011 4:10 AM EST Robyn Fowler MD HEMATOLOGY ORDERABLE S Performing Organization Address [facility] Phone Number [facility] * (ABNORMAL) Prothrombin Time (04/13/2011 4:00 AM EST) Prothrombin Time 14.8(H) 12.3 - 14.7 sec [facility] MILLENNIUM Comment: [facility] Transfusion Committee Guidelines: INR less than 2.0, PTT less than OR equal to 43.5 seconds, or Fibrinogen greater than or equal to 100 mg/dl indicate adequate procoagulant activity for hemostasis in patients without underlying bleeding disorders. International Normalization Ratio 1.1 0.9 - 1.1 [facility] MILLENNIUM Blood specimen (specimen) 04/13/2011 4:00 AM EST 04/13/2011 4:10 AM EST Narrative Authorizing Provider Result Telma Fowler MD HEMATOLOGY ORDERABLE S Performing Organization Address [facility] Phone Number [facility] * (ABNORMAL) Basic Metabolic Panel (non-fasting) (04/13/2011 4:00 AM EST) Glucose 158 60 - 199 mg/dL [facility] Comment:Diabetes: >=200 mg/d L plus symptoms Blood Urea Nitrogen 12 10 - 20 mg/dL [facility] Creatinine 1.12 0.80 - 1.50 mg/dL CERNER [...] Fowler MD CHEMISTRY ORDERABLES Performing Organization Address [facility] Co de Phone Number DONNIE DIETZ [...] S Performing Organization Address [facility] Co de Phone Number DONNIE DIETZ [...] (in gm/dL) ?Based on [facility] [facility] [place] ranges: ?Age ?Reference Range Less than [...] O RDERABLES Performing Organization Address [facility] Phone Number [facility] * Lactic acid, plasma (04/12/2011 11:55 PM EST) Lactic Acid 1.8 0.5 - 2.2 mmol/L [facility] Comment:result rechecked-llu Blood specimen (specimen) 04/12/2011 11:55 PM EST 04/13/2011 12:04 AM EST Randy Padilla MD CHEMISTRY ORDERABLES Performing Organization Address [facility] Phone Number [facility] * POCT GLUCOSE LAB USE ONLY (04/12/2011 8:41 PM EST) Glucose, POC 129 60 - 199 mg/dL [facility] Comment: Supplemental ranges: <110 mg/dL before meals <200 mg/dL all other times of the day Blood specimen (specimen) 04/12/2011 8:41 PM EST 04/12/2011 8:41 PM EST Randy Padilla MD POINT OF CARE TEST O RDERABLES Performing Organization Address [facility] de Phone Number [facility] * (ABNORMAL) BLOOD GAS 2 ARTERIAL (04/12/2011 8:05 PM EST) pH, Arterial 7.37 7.35 - 7.45 [facility] MILLEN[facility]UM PCO2, Arterial 35 35 - 45 mmHg [facility] PO2, Arterial 72(L) 85 - 104 mmHg [facility] Bicarbonate, Arterial 19.6(L) 20.0 - 26.0 mmol/L [facility] MILLEN[facility] Base Excess, Arterial -5.8(L) -3.0 - 3.0 mmol/L [facility] Hgb Blood Gas 12.0(L) 13.7 - 17.5 gm/dL [facility] MILLENNIUM Comment: Total Hemoglobin (in gm/dL) ?Based on [facility] Hematology ranges: ?Age ?Reference Range Less than [...] S Performing Organization Address [facility] Co de Phone Number CERNER GISELAENNIUM * (ABNORMAL) Lactic acid, plasma (04/12/2011 5:25 PM EST) Lactic Acid 4.5(H) 0.5 - 2.2 mmol/L [facility] MILLENNI[facility] Blood specimen (specimen) 04/12/2011 5:25 PM EST 04/12/2011 5:40 PM EST Randy Padilla MD CHEMISTRY ORDERABLES Performing Organization Address City/[facility] Co de Phone Number [facility] HIGGINSENNI[facility] * (ABNORMAL) CBC (with Diff) (04/12/2011 5:25 [...] Deviation 40.4 35.0 - 46.0 fL [facility] J[facility]IORI[facility] RDW coefficient of variation 12.3 10.9 - 14.4 % [facility]IOR[facility] Mean Platelet Volume 10.2 9.0 - 12.0 fL [facility] JUNIORIUM Blood specimen (specimen) 04/12/2011 5:25 PM EST [...] 7.29(Criti juan manuel) CERNER MILLENNIUM Comment:Noted by band instrument repairer. PCO2, Arterial 41 mmHg CERNE R MILLENNIUM PO2, Arterial 74(L) mmHg [facility] MILLENNIUM Bicarbonate, Arterial 19.6(L) mmol/L [facility] MILLENNI[facility] Base Excess, Arterial -6.9(L) mmol/L [facility] MILLENNI[facility] Hgb Blood Gas 13.0(L) gm/dL [facility] MILLENNIUM Comment: Total Hemoglobin (in gm/dL) ?Based on [facility] Hematology ranges: ?Age ?Reference Range Less than [...] POINT OF CARE TEST O RDERABLES [facility]IOR[facility] * POCT GLUCOSE LAB USE ONLY (04/12/2011 4:09 PM EST) Glucose, POC 181 60 - 199 mg/dL [facility] MILLENNIUM Comment: Supplemental ranges: <110 mg/dL before meals <200 mg/dL all other times of the day Blood specimen (specimen) 04/12/2011 4:09 PM EST 04/12/2011 4:09 PM EST Randy Padilla MD POINT OF CARE TEST O KORTNEYERAJAZZY Performing Organization Address City/[facility]/ZIP Co de Phone Number [facility] * (ABNORMAL) POCT GLUCOSE LAB USE ONLY (04/12/2011 3:49 PM EST) Glucose, POC 217(H) 60 - 199 mg/dL [facility] MILLENNIUM Comment: Supplemental ranges: <110 mg/dL before meals <200 mg/dL all other times of the day Blood specimen (specimen) 04/12/2011 3:49 PM EST 04/12/2011 3:49 PM EST Randy Padilla MD POINT OF CARE TEST O BHASKAR Performing Organization Address [facility] de Phone Number [facility] * (ABNORMAL) BLOOD GAS ARTERIAL [...] (in gm/dL) ?Based on [facility] Hematology ranges: ?Age ?Reference Range Less than [...] ORDERABLES Performing Organization Address [facility] Phone Number DONNIE HIGGINSENNIUM * POCT GLUCOSE LAB USE ONLY (04/12/2011 2:57 PM EST) Glucose, POC 198 60 - 199 mg/dL [facility]ILL[facility] Comment: Supplemental ranges: <110 mg/dL before meals <200 mg/dL all other times of the day Blood specimen (specimen) 04/12/2011 2:57 PM EST 04/12/2011 2:57 PM EST Randy Padilla MD POINT OF CARE TEST O RDERABLES Performing Organization Address [facility] Phone Number DONNIE HIGGINSENNIUM * KAUR HOLD (04/12/2011 2:55 PM EST) Pathologist [facility] Kaur Hold Sample in lab. CERMARTI HIGGINSENNIUM Blood specimen (specimen) 04/12/2011 2:55 PM EST 04/12/2011 3:30 PM EST Randy Padilla MD CHEMISTRY ORDERABLES Performing Organization Address [facility] Phone Number [facility] HIGGINSENNI[facility] * (ABNORMAL) Hepatic Function Panel (04/12/2011 2:55 PM EST) Protein, Total 4.6(L) 6.4 - 8.3 gm/dL [facility] Albumin 2.7(L) 3.2 - 5.2 gm/dL [facility] MILLENNI[facility] Aspartate Aminotransferase 28 0 - 39 unit/L [facility] MILLENNI[facility] Alanine Aminotransferase 42 0 - 55 unit/L [facility] MILLENNI[facility] Alkaline Phosphatase 62 40 - 120 unit/L [facility] Bilirubin, Total 0.3 0.2 - 1.3 mg/dL [facility] MILLENNI[facility] Bilirubin, Direct 0.1 0.0 - 0.3 mg/dL [facility] MILLENNIUM Blood specimen (specimen) 04/12/2011 2:55 PM EST 04/12/2011 3:22 PM EST Randy Padilla MD CHEMISTRY ORDERABLES Performing Organization Address [facility] Phone Number [facility]ER MILLENNIUM * (ABNORMAL) Phosphorus (04/12/2011 2:55 PM EST) Phosphorus 4.6(H) 2.5 - 4.5 mg/dL [facility] MILLENNI[facility] Blood specimen (specimen) 04/12/2011 2:55 PM EST 04/12/2011 3:22 PM EST Randy Padilla MD CHEMISTRY ORDERABLES Performing Organization Address [facility] Phone Number [facility] * (ABNORMAL) Magnesium (04/12/2011 2:55 PM EST) Magnesium 0.54(L) 0.69 - 1.07 mmol/L [facility] MILLENNI[facility] Blood specimen (specimen) 04/12/2011 2:55 PM EST 04/12/2011 3:22 PM EST Randy Padilla MD CHEMISTRY ORDERABLES Performing Organization Address [facility] Phone Number [facility] G[facility]NI[facility] * (ABNORMAL) Prothrombin Time (04/12/2011 2:55 PM EST) Prothrombin Time 15.8(H) 12.3 - 14.7 sec [facility] MILLENNIUM Comment: [facility] [place] Transfusion Committee Guidelines: INR less than 2.0, [...] HEMATOLOGY ORDERABLE S Performing Organization Address City/[facility]/ZIP Co de Phone Number DONNIE JUNIORIUM * APTT (04/12/2011 2:55 PM EST) Partial Thromboplastin Time 32 25 - 37 sec [facility] MILLENNIUM Comment: Recommended therapeutic PTT range for full dose unfractionated heparin is 80-114 seconds. Blood specimen (specimen) 04/12/2011 2:55 PM EST 04/12/2011 3:22 PM EST Randy Padilla MD HEMATOLOGY ORDERABLE S Performing Organization Address [facility] de Phone Number [facility]ER[facility]ARTI JUNIORI[facility] * (ABNORMAL) Basic Metabolic Panel (non-fasting) [...] PM EST Randy Padilla MD CHEMISTRY ORDERABLES [facility] MILLENNI[facility] * (ABNORMAL) BLOOD GAS 2 ARTERIAL (04/12/2011 2:06 PM EST) pH, Arterial 7.21(Criti juan manuel) [facility] MILLENNIUM Comment:Noted by band instrument repairer. PCO2, Arterial 41 mmHg [facility]ER[facility] R MILLENNIUM PO2, Arterial 73(L) mmHg [facility] MILLENNIUM Bicarbonate, Arterial 16.1(L) mmol/L [facility] MILLENNI[facility] Base Excess, Arterial -11.7(L) mmol/L [facility] MILLENNI[facility] Hgb Blood Gas 12.4(L) gm/dL [facility] MILLENNI[facility] Comment: Total Hemoglobin (in gm/dL) ?Based on [facility] Hematology ranges: ?Age ?Reference Range Less than [...] 7.20(Criti juan manuel) [facility] MILLENNIUM Comment:Noted by band instrument repairer. PCO2, Arterial 48(H) mmHg [facility] PO2, Arterial 109(H) mmHg [facility] MILLENNI[facility] Bicarbonate, Arterial 18.5(L) mmol/L [facility] MILLENNI[facility] Base Excess, Arterial -9.5(L) mmol/L [facility]ILLENNI[facility] Hgb Blood Gas 13.0(L) gm/dL [facility]ILLENNI[facility] Comment: Total Hemoglobin (in gm/dL) ?Based on [facility] Hematology ranges: ?Age ?Reference Range Less than [...] BHASKAR Performing Organization Address [facility] de Phone Number DONNIE Mashed jobsIUM * (ABNORMAL) POCT GLUCOSE LAB USE ONLY (04/12/2011 12:34 PM EST) [facility] Signature Glucose, POC 207(H) 60 - 199 mg/dL [facility] MILLENNIUM Comment: Supplemental ranges: <110 mg/dL before meals <200 mg/dL all other times of the day Blood specimen (specimen) 04/12/2011 12:34 PM EST 04/12/2011 12:34 PM EST Randy Padilla MD POINT OF CARE TEST O RDERAJAZZY Performing Organization Address [facility] Co de Phone Number ROMELIAMARTI Mashed jobsIUM * (ABNORMAL) BLOOD GAS 2 ARTERIAL (04/12/2011 11:27 AM EST) pH, Arterial 7.38 [facility] MILLENNI[facility] PCO2, Arterial 35 mmHg [facility] MILLENNI[facility] PO2, Arterial 96 mmHg [facility] MILLENNI[facility] Bicarbonate, Arterial 20.6 mmol/L [facility] MILLENNI[facility] Base Excess, Arterial -4.5(L) mmol/L [facility] MILLENNI[facility] Hgb Blood Gas 15.2 gm/dL [facility] MILLENNI[facility] Comment: Total Hemoglobin (in gm/dL) ?Based on [facility] Hematology ranges: ?Age ?Reference Range Less than [...] CARE TEST O RDERAJAZZY Performing Organization Address [facility] de Phone Number [facility]ERNON[facility] * (ABNORMAL) POCT GLUCOSE LAB USE ONLY (04/12/2011 9:53 AM EST) Glucose, POC 286(H) 60 - 199 mg/dL [facility]ERN[facility] MILLENNIUM Comment: Supplemental ranges: <110 mg/dL before meals <200 mg/dL all other times of the day Blood specimen (specimen) 04/12/2011 9:53 AM EST 04/12/2011 9:53 AM EST Randy Padilla MD POINT OF CARE TEST O RDERABLES Performing Organization Address [facility] de Phone Number [facility]ERNON[facility] * ANTIBODY SCREEN (04/12/2011 8:25 AM EST) Ab Screen Interp Negative CERNER GISELAENNIUM Expires at [id number] on: [id number] C[facility] MILLENNIUM Blood specimen (specimen) 04/12/2011 8:25 AM EST 04/12/2011 8:38 AM EST Erik Gill MD BLOOD BANK LAB ORDER BRIANNE Performing Organization Address [facility]/ZIP Co de Phone Number DONNIE DIETZ * ABO/RH TYPING (04/12/2011 8:25 AM EST) ABORH Type O Pos DONNIE DIETZ Blood specimen (specimen) 04/12/2011 8:25 AM EST 04/12/2011 8:38 AM EST Erik Gill MD BLOOD BANK LAB ORDER BRIANNE Performing Organization Address City/[facility] Co de Phone Number DONNIE DIETZ * Green Tube HOLD (04/12/2011 8:25 AM EST) Green Hold Sample in lab. DONNIE DIETZ Blood specimen (specimen) 04/12/2011 8:25 AM EST 04/12/2011 8:38 AM EST Erik Gill MD CHEMISTRY ORDERABLES Performing Organization Address [facility] Co de Phone Number DONNIE DIETZ * Lavender Tube HOLD (04/12/2011 8:25 AM EST) Lavender Hold Sample in lab. DONNIE DIETZ Blood specimen (specimen) 04/12/2011 8:25 AM EST 04/12/2011 8:38 AM EST Erik Gill MD HEMATOLOGY ORDERABLE S Performing Organization Address [facility] Co de Phone Number DONNIE DIETZ [...] (Bezet) 450 ms MUSE SYSTEM Calculated P [place] 33 degrees MUSE SYSTEM Calculated R [place] 50 degrees MUSE SYSTEM Calculated T [place] 66 degrees MUSE SYSTEM INTERPRETATION Sinus rhythm [...] THOMPSON ?Ordered By: ROBYN FOWLER ? MR#: [id number] ?LOC: ??ICUN ? /Sex: ?? 7 (75 years), ? Male ? PROCEDURE: Urine Culture ?SOURCE: [facility] ? COLLECTED: 04/12/2011 07:26 ? STARTED: 04/12/2011 [...] Urine Dipstick Clear Clear CERNER MILLENNIUM Specific [place] Urine Automated 1.021 1.002 - 1.030 CERNER MILLENNIUM Color, Urine Dipstick Yellow Yellow CERNER MILLENNIUM RBC, Urine Not Present 0 - 3 [facility] MILLENNIUM WBC, Urine Not Present 0 - 3 CERNER MILLENNIUM Urine specimen (specimen) 04/12/2011 7:25 AM EST 04/12/2011 7:39 AM EST Robyn Fowler MD URINE ORDERABLES CERMARTI MILLENNIUM * (ABNORMAL) DIFFERENTIAL, AUTOMATED (04/12/2011 7:15 [...] Fowler MD CHEMISTRY ORDERABLES Performing Organization Address [facility] de Phone Number [facility] * Troponin T (04/12/2011 7:15 AM EST) Troponin-T <0.03 <=0.03 ng/mL [facility] Comment: 0.03 ng/mL: Represents the 99th percentile upper reference limit for normals. >0.03 ng/mL: Elevated cardiac troponin T level indicative of myocardial damage. Diagnosis of acute, evolving or recent ME requires a typical rise and gradual fall [...] consensus document of the Joint Society of Cardiology/[place] [employer] Committee for the redefinition of myocardial infarction. Journal of the [place] College of [employer]iology 2000; 36: 959-969] Blood specimen (specimen) 04/12/2011 7:15 AM EST 04/12/2011 7:34 AM EST Robyn Fowler MD CHEMISTRY ORDERABLES Performing Organization Address [facility] de Phone Number [facility] * APTT (04/12/2011 7:15 AM EST) Partial Thromboplastin Time 28 25 - 37 sec [facility] Comment: Recommended therapeutic PTT range for full dose unfractionated heparin is 80-114 seconds. Blood specimen (specimen) 04/12/2011 7:15 AM EST 04/12/2011 7:34 AM EST Robyn Fowler MD HEMATOLOGY ORDERABLE S Performing Organization Address [facility] de Phone Number [facility] * Prothrombin Time (04/12/2011 7:15 AM EST) Prothrombin Time 13.2 12.3 - 14.7 sec [facility] Comment: [facility] [place] Transfusion Committee Guidelines: INR less than 2.0, PTT less than OR equal to 43.5 seconds, or Fibrinogen greater than or equal to 100 mg/dl indicate adequate procoagulant activity for hemostasis in patients without underlying bleeding disorders. International Normalization Ratio 1.0 0.9 - 1.1 [facility] Blood specimen (specimen) 04/12/2011 7:15 AM EST 04/12/2011 7:34 AM EST Robyn Fowler MD HEMATOLOGY ORDERABLE S Performing Organization Address [facility] de Phone Number [facility] * (ABNORMAL) Glucose, random (04/12/2011 7:15 AM EST) Glucose 299(H) 60 - 199 mg/dL [facility] Comment:Diabetes: >=200 mg/d L plus symptoms Blood specimen (specimen) 04/12/2011 7:15 AM EST 04/12/2011 7:34 AM EST Robyn Fowler MD CHEMISTRY ORDERABLES Performing Organization Address [facility] de Phone Number [facility] * Creatinine, serum (04/12/2011 7:15 AM EST) Creatinine 0.98 0.80 - 1.50 mg/dL [facility] Est Glomerular Filtration Rate >60 >=60 [facility] Comment: The National Kidney Disease Education [...] Fowler MD CHEMISTRY ORDERABLES Performing Organization Address [facility] de Phone Number [facility] [employer]EN[facility] * BUN (04/12/2011 7:15 AM EST) Blood Urea Nitrogen 14 10 - 20 mg/dL CERNER MILLENNIUM Blood specimen (specimen) 04/12/2011 7:15 AM EST 04/12/2011 7:34 AM EST Robyn Fowler MD CHEMISTRY ORDERABLES Performing Organization Address [facility] de Phone Number [facility] MILL[facility] * Electrolytes panel (04/12/2011 7:15 AM [...] EST Robyn Fowler MD CHEMISTRY ORDERABLES DONNIE DIETZ * (ABNORMAL) [...] Mckoy RN) 0835 (Given - Provider: Leandra Monreal, MARILYN) enalapril (VASOTEC) tablet 10 mg (CANCELED) 10 [...] Vishnu Mckoy RN)2047 (Given - Provider: Esme Gamboa, MARILYN) 0900 (Given - Provider: Vishnu Mckoy RN)1300 (Given - Provider: Cinthia Huerta RN)1700 (Given - Provider: Christopher Barnes, MARILYN)2101 (Given - Provider: Tawana Valenzuela, MARILYN) 0805 (Given - Provider: Leandra Monreal RN)1300 [...] Vishnu Mckoy RN)1800 (Given - Provider: Christopher Barnes, MARILYN) 0100 (Given - Provider: Tawana Valenzuela, MARILYN)0624 (Given - Provider: Tawana Valenzuela RN) potassium [...] Gamboa RN) 1100 (Given - Provider: Vishnu Mckoy, MARILYN)2234 (Given - Provider: Tawana Valenzuela RN) PRN [...] or pre-procedure, Routine 0200 (Given - Provider: iGnny Britton RN)0400 (Given - Provider: Ginny Britton [...] Vishnu Mckoy RN)2304 (Given - Provider: Esme Gamboa, MARILYN) 0606 (Given - Provider: Esme Gamboa RN) [...] Routine documented in this encounter Care Teams Instantizer Operator Relationship Specialty Start Date End Date Arely Vickers MD PCP - General 04/12/11 09/15/16 documented as of this encounter
--- OUTSIDE RECORDS SUMMARY | 2024-01-25 13:45 | XMS_ITS | Continuity of Care Document ---
Author Organization [place] - [facility] [place] [address] Assessment Encounter Date Assessment Date Assessment LastModified by Organization Details LastModified Time 12/26/2023 12/26/2023 CCM did check in with patient. We will try and send DME request to [employer] for shower use. If not pt[facility] can [facility] ED and UC notes reviewed. The total time devoted to today's encounter, including both the ukxp-ox-ltoi time with the patient and/or family/caregi dina and ttn-mguh-yw-f paulette time I personally spent is 45 minutes. Pt. will need Annual with DFE, Advanced Care Plan, and Diabetic Eye Exam, Pneumovax on F/U. [email or web address] Not available 12/26/2023 13:29:50 Plan of Treatment Reminders Order Date Submit Date Provider Last Modified By Organization Details Last Modified Time Details Appointments Nurse Visit 20 2023 11:30A M Not available Not available Not available Lab uric acid, serum or plasma 2023 024 [facility] [address] [place] [address] [place], [address], 01/09/2024 03:15:26 HbA1c (hemoglob in A1c), blood [facility]23 [facility] [address] [place] [address] [place], [address], 01/09/2024 03:15:26 Referral physical therapist referral 2023 024 FRANCISCO Brice PT, [address], [place], [address], 01/25/2024 04:04:19 Procedures None recorded. Surgeries None recorded. Imaging None recorded. Medication Orders allopurin ol 100 mg tablet 2023 024 [facility], [address] [place] [facility] [place], [address], 12/26/2023 13:51:04 Patient TargetsNo targets recorded. Patient InstructionsNo instructions recorded. Reason for Referral First Aid Instructor Referral for Ch ronic kidney disease stage 4 87 yo active male with DM, aFib, stage 4 CKD that is progressing Referring Physician: Family Natasha Segundo, Encounter Date: 06/05/2023 Vascular Surgeon Referral fo r Abdominal aortic aneurysm without rupture 87 yo M with stage 4 CKD, h/o EVAR, recent non-enhanced CT at [facility] ED 05/17/22 after presenting with back pain showing widened sac in area of aneurysm, recommended contrast study for endoleak. Also thoracic aneurysm. Please direct imaging modality, further evaluation (MRA not approved by insurance). Referring Physician: Family Natasha Segundo, Encounter Date: 06/13/2023 Orthopedic Surgeon Referral for Trigger finger of left hand Left thumb trigger finger bothering pt and he is requesting consult for possible surgical intervention. For scheduling, All appointments should be made through Montse Guadarrama. Her phone number is Referring Physician: Family Natasha Xiong, Encounter Date: 09/25/2023 Orthopedic Surgeon Referral for [...] panel negative from urgent care. Referring Physician: Family Natasha Xiong, Encounter Date: 10/13/2023 Physical Therapist Referral for Acute low back pain Referring Physician: Maximino Lucero, Family Medicine, Encounter Date: 12/26/2023 Results Created Date Observation Date Name Description Value Unit Range Abnormal Flag Note LastModifiedBy Organization Detail LastModifiedTime 12/21/1912/21/2023 vrad repor t Patien t Name: Terrence Thompson Unit #: [id number] Loc: ER Orderi ng Provid er: Accoun t #: [id number] Status : REG ER Primar y Care Provid er: JazmineSalinacatherine georges Date of Exam: 12/03 12/26 Sex: M [...] COMPAR SABRINA: CT ABDOME N PELVIS WO 024 9:20 AM FINDIN GS: Bones/ joints : Mild degene rative diseas e of bilate ral hip joints . There is ankylo sis of bilate ral sacroi liac joints . No acute fractu re. There is demine raliza tion visual ized bones. Mild retrol isthes is L4 over L5. Modera te bilate ral facet joint arthro paulo of the lower lumbar spine. At L1-L2, Belt Polisher ior osteop hyte disc comple x at L1-L2 with mild bony canal stenos is. At L2-L3, bilate ral facet joint arthro paulo no signif icant thecal sac compre ssion or neural narrow ing. At L3-L4, autistic teacher ior osteop hyte disc comple x with bilate ral facet joint arthro paulo causin g severe thecal sac compre ssion and severe narrow ing of both neural forami na. At L4-L5: Belt Polisher ior osteop hyte disc comple x with bilate ral facet joint arthro paulo and ligame ntum flavum hypert rophy causin g severe thecal sac compre ssion and severe narrow ing both neural forami na. At L5-S1, autistic teacher ior osteop hyte disc comple x causin [...] at L3-L4 and L4-L5. Dictat ed and Margarita shannon d by: Leo Omer. Orderi ng:Robby Perera MD Access ion#=[id number] Ordere d By: CC: ------ ------ ------ ------ ------ ------ ------ ------ ------ ------ ------ ------ ---- Dictat ed By: Report s vrad [id number] Transc ribed By: Di Merge 919 This is privil eged, confid ential inform ation intend ed only for the provid er named. Any use or distri bution by any person other than this provid er is strict ly prohib ited. If you receiv e this report in error, please notify us immedi ately at [phone] and return the origin al report to us at the addres s above. Thank- you. [email or web address] [facility] [address] [place], [address] 12/22/2023 07:34:46 12/21/19 24 12/21/2023 vrad repor t Anisa t Name: Terrence Thompson Mamie Unit #: [id number] Loc: ER Orderi ng Provid er: Accoun t #: [id number] Status : REG ER Primar y Care Provid er: Jazmine Salinajaquelinmarkel josé manuel Date of Exam: 12/03 12/26 [...] and pelvis withou t contra st. COMPAR SBARINA: CT ABDOME N PELVIS WO 10/06/19 24 [...] Omer. Orderi ng:Robby Perera MD Access ion#=[id number] Ordere d By: CC: ------ ------ ------ ------ ------ ------ ------ ------ ------ ------ ------ ------ ---- Dictat ed By: Report s vrad 0920 954 Transc ribed By: Di Merge 919 This [...] at the addres s above. Thank- you. [email or web address] [facility] [address], [place], [address] 12/22/2023 07:34:47 12/21/19 24 12/21/2023 CT imagi ng repor t Anisa t Name: Terrence Thompson Unit #: [id number] Loc: ER Orderi ng Provid er: Marie Austin Accoun t #: [id number] Status : REG ER Primar y Care Provid er: JazmineAlexi josé manuel Date of Exam: 12/03 12/26 [...] scular aorta iliac stent in place. Extens gonzalez athero sclero tic calcif icatio n is [...] adjust ment per patien t size (inclu mgadi target ed exams where dose is matche d to clinic al indica tion); or iterat gonzalez recons tructi on. 009: Total DLP = 0.00 mGy-cm Ordere [...] error, please notify us immedi ately at and return the origin al report to us at the addres s above. Thank- you. [email or web address] [facility] [address], [place], [address] 12/22/2023 07:34:47 12/21/1912/21/2023 CT imagi ng repor t Patitj t Name: Terrence Thompson Unit #: [id number] Loc: ER Orderi ng Provid er: Aretha henao,Marie n QUINN Accoun t #: [id number] Status : REG ER Primar [...] scular aorta iliac stent in place. Extens gonzalez athero sclero tic calcif icatio n is [...] to clinic al indica tion); or iterat gonzalez recons tructi on. 010: Total DLP = 0.00 mGy-cm Ordere [...] this report in error, please notify us immedadriano sparrow at and return the origin al report to us at the addres s above. Thank- you. [email or web address] [facility] [address] [place], [address] 12/26/2023 09:17:16 12/24/19 24 12/24/2023 x-ray imagi ng repor t Mallorietj t Name: Terrence Thompson Unit #: [id number] Loc: ER Orderi ng Provid er: Riya Garza M.D. Accoun t #: [id number] Status : REG ER Primar y [...] Infante 1003 1003 Transc ribed By: Mg Verma 1003 This is privil eged, confid ential inform ation intend ed only for the provid er named. Any use or distri bution by any person other than this provid er is strict ly prohib ited. If you receiv e this report in error, please notify us immedi ately at and return the origin al report to us at the addres s above. Thank- you. [facility] [address] [place], [address] 12/24/2023 18:07:26 12/24/19 24 12/24/2023 CT imagi ng repor t Patien t Name: Terrence Thompson Unit #: [id number] Loc: ER Orderi ng Provid er: Riya Garza M.D. Accoun t #: [id number] Status : REG ER Primar y [...] to clinic al indica tion); or iterat gonzalez recons tructi on. 021: Total DLP = 0.00 mGy-cm Ordere [...] error, please notify us immedi ately at and return the origin al report to us at the addres s above. Thank- you. [email or web address] [facility] [address] [place], [address] 12/24/2023 18:07:26 12/28/19 24 12/28/2023 vrad repor t Patien t Name: Terrence Thompson Unit #: [id number] Loc: ER Orderi ng Provid er: Accoun t #: [id number] Status : REG ER Primar y Care Provid er: JazmineSalinajaquelinmarkel josé manuel Date of Exam: 12/04 09/25 Sex: M [...] Authen ticate d by: Shu Gong MD. Jolie bravo:PSabina Shaikh MD Access ion#=[id number] Ordere d By: CC: ------ ------ ------ ------ ------ ------ ------ ------ ------ ------ ------ ------ ---- Dictat ed By: Report s vrad 0750 0840 Transc ribed By: Di Merge 0750 This is privil eged, confid ential inform ation intend ed only for the provid er named. Any use or distri bution by any person other than this provid er is strict ly prohib ited. If you receiv e this report in error, please notify us immedi ately at and return the origin al report to us at the addres s above. Thank- you. [email or web address] [facility] [address], [place], [address] 12/29/2023 07:26:06 12/28/19 24 12/28/2023 ultra sound imagi ng repor t Patien t Name: Terrence Thompson leighjustin Mamie Unit #: [id number] Loc: ER Jolie barvo Provid er: Sirisha Lawson M.D. Accoun t #: [id number] Status : REG ER Primar y [...] greate r than right. DATA REPOSI TORY: Ordere d By: Sirisha Lawson M.D. CC: ------ [...] report in error, please notify us immseymour lastly at and return the origin al report to us at the addres s above. Thank- you. [email or web address] [facility] [address], [place], [address] 12/29/2023 07:26:06 01/08/20 24 01/08/2024 vrad repor t Patien t Name: Terrence Thompson Unit #: [id number] Loc: ER Orderi ng Provid er: Accxiomara t #: [id number] Status : REG ER Primar y Care Provid er: Alexi Lucero Date of Exam: 09/25 Sex: M : 1935 Age: 88 Exam(s ) PROCED URE INFORM ATION: Exam: XR Chest Exam date and time: 01/08/20 24 2:14 AM Age: 88 years old Clinic [...] ticate d by: Jade Velasco MD. Orderi ng:Robby friedman MD Access ion#=[id number] Adelaida balbuena By: CC: ------ ------ ------ ------ ------ ------ ------ ------ ------ ------ ------ ------ ---- Dictat ed By: Report s vrad 213 0241 Transc ribed By: Irene Spain 213 This is privil eged, confid ential inform ation intend ed only for the provid er named. Any use or distri bution by any person other than this provid er is strict ly prohib ited. If you receiv e this report in error, please notify us immedi kyara at and return the origin al report to us at the addres s above. Thank- you. [email or web address] [facility] [address] [place], [address] 01/08/2024 10:02:38 01/08/20 24 01/08/2024 x-ray imagi ng yulissa t Anisa t Name: Terrence Thompson leighjustin Mamie Unit #: [id number] Loc: ER Orderi ng Provid er: Florecita Cole M.D. Accoun t #: [id number] Status : DEP ER Primar y Care [...] M.D. 1410 Transc ribed By: Chepe MOTA,Hui borges 1410 This is privil eged, confid ential inform ation intend ed only for the provid er named. Any use or distri bution by any person other than this provid er is strict ly prohib ited. If you receiv e this report in error, please notify us immedi berhanely at [phone] and return the origin al report to us at the addres s above. Thank- you. [email or web address] [facility] [address], [place], [address] 01/08/2024 14:15:50 01/19/20 24 11/07/2020 imagi ng/di agnos tic resul t No observ ation record ed. Not Available 01/18 19:15:15 01/19/2012/02/2019 imagi ng/di agnos tic resul t No [...] Organization Details Recorded Time Erectile dysfunct ion 815180486 Active 1959 LETTY fuller [facility] 4 10:11:06 Hyperlip idemia 81579623 Active 2004 LETTY fuller [facility] 4 10:11:57 Type 2 diabetes mellitus without complica tion 791910145 [facility] 4 10:12:37 Steatosi s of liver 451682383 [facility] 4 10:12:23 Abdomina l aortic aneurysm without rupture 90460571 [facility] 4 10:09:38 Benign prostati c hyperpla gregory 990817029 [facility] 4 10:10:32 Hernia of anterior abdomina l wall 160364863 [facility] 4 10:11:52 Phimosis 719634773 [facility] 4 10:12:18 Dysthymi a 80424360 [facility] 4 10:11:01 Essentia l hyperten emerson 34391949 [facility] 4 10:11:13 Chronic kidney disease stage 4 400407738 [facility] 4 10:10:38 Low back pain 451769050 [facility] 4 10:12:09 Nicotine dependen ce 10857620 [facility] 4 10:12:13 Disorder of salivary gland 43031880 [facility] 4 10:10:56 Digestiv e system disease screenin g Completed 201610/10/2016 Problem Code: Z13.818; Problem Code Type: ICD-10; Not Available [facility] 3 05:17:20 Atherosc lerosis of coronary artery without angina pectoris 47357462880 4103 [facility] 4 10:10:18 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 He can stop doxyclin e as he has felt better for the past 48 hours. Problem Code: J40; Problem Code Type: ICD-10; Not Available [facility] 3 05:17:21 Hypomagn esemia 758093705 Completed 201803/06/2023 Problem Code: E83.42; Problem Code Type: ICD-10; Not Available [facility] 4 05:37:17 Colostom y present 838549603 [facility] 4 10:10:45 [facility] 84288643 [facility] 4 10:11:48 Hearing loss 95816342 [facility] 4 10:11:44 Balaniti s 71853821 [facility] 4 10:10:27 Atrial flutter 6391087 Active 2020 LETTY fuller, [facility] 4 10:10:23 Transien t acanthol ytic dermatos is 26715076 Active 2020 LETTY fuller, [facility] 4 10:12:32 Intersti tial lung disease 193766126 Active 2021 LETTY fuller, [facility] 4 10:12:04 Internal hordeolu m 906410415 Completed 202206/05/2022 Problem Code: H00.029; Problem Code Type: ICD-10; Not Available [facility] 3 05:17:22 Essentia l tremor 440171093 Active 2022 LETTY fuller, [facility] 4 10:11:19 Gout 99727803 Active 2022 LETTY fuller, [facility] 4 10:11:38 External hordeolu m 6733468 Completed 202203/06/2023 Problem Code: H00.019; Problem Code Type: ICD-10; Not Available [facility] 4 05:37:17 History of right cataract extracti on 235756260 Completed 201406/06/2020 Problem Code: Z98.41; Problem Code Type: ICD-10; Not Available [facility] 3 05:17:27 Hypervol emia 06564395 Completed 201506/07/2016 Problem Code: E87.70; Problem Code Type: ICD-10; Not Available [facility] 3 05:17:27 Anemia 198152232 Completed 201806/06/2020 Problem Code: D64.9; Problem Code Type: ICD-10; Not Available [facility] 3 05:17:27 Edema 580544409 Completed 202012/11/2021 Problem Code: R60.9; Problem Code Type: ICD-10; Not Available [facility] 3 05:17:27 Impacted cerumen of bilatera l ears 48030526824 17514 Completed 202212/02/2022 Problem Code: H61.23; Problem Code Type: ICD-10; QUINN BAKER [address], [place], [address] , [facility] 12:04:41 Acute pharyngi tis 759138845 Completed 202209/07/2022 Problem Code: J02.9; Problem Code Type: ICD-10; Not Available [facility] 3 05:17:28 Pleuriti c pain 8708056 Completed 202109/02/2022 Problem Code: R07.81; Problem Code Type: ICD-10; Not Available [facility] 3 05:17:29 Allergic contact dermatit is 475647733 Completed 201906/06/2020 Problem Code: L23.9; Problem Code Type: ICD-10; Not Available [facility] 3 05:17:29 Generali zed enlarged lymph nodes 060255867 Completed 201601/29/2023 10/10/19 17 - Comments only - Rolando Moise MD - I am concerne d [...] R59.1; Problem Code Type: ICD-10; Not Available [facility] 3 05:17:29 Disorder of soft tissue 48986897 Completed 201906/06/2020 Problem Code: M70.90; Problem Code Type: ICD-10; Not Available [facility] 3 05:17:30 Impotenc e Completed Not Available [facility] 3 05:17:30 Pneumoni a 769231255 Completed 201702/17/2018 Problem Code: J18.9; Problem Code Type: ICD-10; Not Available [facility] 3 05:17:30 Chronic kidney disease stage 3 505491107 Completed 201501/29/2023 06/06/19 21 - Comments only - Rolando Moise MD - Stage 3b, so get full renal panel with labs today. Fluid status okay clinical ly today. Working on BP. Not Available [facility] 3 05:17:30 Upper respirat ory tract infectio n caused by Influenz a virus 44675651870 265909 Completed 202209/02/2022 Problem Code: J11.1; Problem Code Type: ICD-10; Not Available [facility] 3 05:17:31 Disorder of skin and/or subcutan eous tissue 46208170 Completed 201706/06/2020 Problem Code: L98.9; Problem Code Type: ICD-10; Not Available [facility] 3 05:17:31 Cough 30110929 Completed 202209/07/2022 Problem Code: R05.8; Problem Code Type: ICD-10; Not Available [facility] 3 05:17:31 Chest pain 80478861 Completed 202112/11/2021 Problem Code: R07.9; Problem Code Type: ICD-10; Not Available [facility] 3 05:17:32 Primary gout 18256486 Completed 202201/29/2023 Problem Code: M10.00; Problem Code Type: ICD-10; Not Available [facility] 3 05:17:32 Hypercho lesterol emia 26616282 Completed 199601/29/2023 Not Available [facility] 3 05:17:32 Diabetes mellitus 63663279 Completed 200501/29/2023 Not Available [facility] 3 05:17:33 Pain of left shoulder joint 52690269131 560788 Completed 202102/18/2022 Problem Code: M25.512; Problem Code Type: ICD-10; Not Available [facility] 05:17:33 Localize d edema 217830704 Completed 201901/11/2020 Problem Code: R60.0; Problem Code Type: ICD-10; Not Available [facility] 3 05:17:33 Eczema 55436852 Completed 202001/29/2023 Problem Code: L30.9; Problem Code Type: ICD-10; Not Available [facility] 3 05:17:34 Prepatel lar bursitis of left knee 44044809772 9103 Completed 202201/29/2023 07/30/19 23 - Comments only - Rolando Moise MD - Ovidio is in a [...] M70.42; Problem Code Type: ICD-10; Not Available [facility] 3 05:17:34 Hyperten sive disorder 54453934 Completed 200602/06/2016 Not Available [facility] 3 05:17:35 Thoracic aortic aneurysm without rupture 18685928 Active 2022 LETTY fuller, [facility] 4 10:12:28 Ganglion cyst of right hand 61448711742 9107 Active 2022 LETTY fuller [facility] 4 10:11:27 Recurren t falls 579914694 Active 2023 QUINN BAKER [address], [place], [address] , [facility] 4 08:14:47 Aneurysm of thoracic aorta 896478059 Active 2023 QUINN BAKER [address], [facility] [address] , [facility] 4 08:15:13 Impacted cerumen of bilatera l ears 05408550853 61743 Active 2023 Problem Code: H61.23; Problem Code Type: ICD-10; [address], [facility] [address] , [facility] 4 12:04:41 Bursitis of olecrano n of left elbow 04962928504 9101 Active [address], [facility] [address] , [facility] 4 12:40:14 Trigger finger of left hand 45101728837 475039 Active [address], [facility] [address] , [facility] 12:43:16 Unsteady when walking 82383886 Active [address], [facility] [address] , [facility] 15:37:59 Pain of left knee joint 68974403548 4107 Active 2023 JAYCEE STANLEY PA-C [address], [facility] [address] , [facility] 4 14:05:19 Trigger thumb of left hand 53403990728 9107 Active [address], [facility] [address] , [facility] 4 14:30:58 Acute gout 140218464 Active 2023 LEONA BERRIOS [address], [facility] [address] , [facility] 4 12:58:04 Acute low back pain 426214259 Active [address], [facility] [address] , [facility] 4 10:01:35 Spinal stenosis of lumbar region 72098623 Active [address], [facility] [address] , [facility] 4 11:45:12 Pain in testicle 27107214 Active [address], [facility] [address] , [facility] 4 12:13:30 Degenera tive lumbar spinal stenosis 359924917 Active 2023 Zeynep fuller, [facility] 4 11:05:52 Low blood pressure 27603589 Active [address], [facility] [address] , [facility] 4 09:42:36 Notes:*Problem Name: Hyperch olesterolem *ICD-10 [...] Name and Address Organization Details Recorded Time 4 Cerumen Removal completed [address], [place], [address] 09/25/2023 12:46:11 Imaging Results None recorded. Procedure Notes None recorded. Medical Equipment None Reported. Allergies Allergen ID Allergen Name Allergen Category Reaction Reaction Severity Criticality Documentation Date Start Date Code Code System Note Provider Name and Address Organization Details Recorded Time neomycin sulfate medicatio n rash moderate Not available 03/14/20232019 7300 RxNorm Stephy Nicole RN [facility], [facility] 4 13:20:31 Medications Name Sig Start Date Stop [...] morning. 2023 active Dose lowered while at [facility] Not Available Not Available Not Available cyanocoba [...] to affected area on scalp 12/22 completed [facility] ER Not Available Not Available [...] to affected area twice a day with clotrima zole, to tip of penis 11/03 completed Not Available Not Available Not Available furosemid e 20 mg tablet Take 1 tab by mouth once daily for fluid 02/12 completed Not Available Not Available Not Available gabapenti n 100 mg capsule Take 1 capsule 3 times a day by oral route for 14 days. 2023 active prescrib ed by [facility] ED Not Available Not Available [...] Not Available Not Available Not Avai lable oseltamiv ir 30 mg capsule Take 1 capsule by mouth once a day 08/13 completed Not Available Not Available Not Available Humalog KwikPen (U-100) Insulin 100 unit/mL subcutane ous Inject 6 unit subcutan eously three times a day with meals 12/141 completed Not Available Not Available Not Available diclofena c 1 % topical gel Apply 1 a small amount to affected area three times a day 2023 active Not Available Not Available Not Jae randle OneTouch Delica Lancets 33 gauge 11/22 completed Not Available Not Available Not Available Accu-Chek Rain Plus test strips 2 strips daily 2023 active Not Available Not Available Not Jae randle Comfort EZ Insulin Syringe 0.3 mL 31 gauge x 5/16 Use 1 syringe as directed five times a day with insulin 11/16 completed Not Available Not Available Not Available Eliquis 2.5 mg tablet Take 1 tablet by mouth twice a day 2023 active Not Available Not Available Not Jae randle BD Insulin Syringe Ultra-Fin e 0.5 mL [...] 2018 active Not Available Not Available Not Avrachel randle selenium sulfide 2.5 % lotion Apply 1 [...] Updated DateTime 4 170.69 cm 30 kg/m2 77760.8 9 g 97.5 [degF] 85 /min 106 mm[Hg] 50 mm[Hg] MARK WILLSON MA [facility] 11:10:17 Social History Question Answer Notes LastModified by Organizat ion Details LastModified Time Tobacco Smoking Status Former Smoker Quit 2009 KURT RIVAS RN [facility], [facility] 12/05/2023 12:30:15 When Did You Quit Smoking? 16+yearssince lastcikenn [email or web address] Information not available 12/05/2023 How Often Does [...] Recorded Time Tdap 10/26/2019 completed Not Available [facility] 05:31:57 Influenza, high-dose, trivalent, PF 04/16/2019 completed Not Available [facility] 03/14/2023 05:31:57 Td(adult) unspecified formulation 10/09/2009 completed Not Available [facility] 03/14/2023 05:31:57 Td(adult) unspecified formulation 03/10/1998 completed Not Available [facility] 03/14/2023 05:31:57 Influenza, split virus, trivalent, preservative 01/20/2015 completed Not Available [facility] 03/14/2023 05:31:57 Influenza, split virus, trivalent, preservative 03/22/2016 completed Not Available [facility] 03/14/2023 05:31:57 Pneumococcal Conjugate, unspecified formulation 02/03/2017 completed Not Available [facility] 03/14/2023 05:31:57 Influenza, high-dose, quadrivalent, PF 02/02/2020 completed Not Available [facility] 03/14/2023 05:31:57 Influenza, high-dose, quadrivalent, PF 02/01/2021 completed Not Available [facility] 03/14/2023 05:31:57 Influenza, high-dose, quadrivalent, PF 02/18/2022 completed Not Available [facility] 03/14/2023 05:31:57 COVID-19, mRNA, LNP-S, PF, 100 mcg/0.5mL dose or 50 mcg/0.25mL dose 06/15/2020 completed Not Available [facility] 03/14/2023 05:31:57 COVID-19, mRNA, LNP-S, PF, 100 mcg/0.5mL dose or 50 mcg/0.25mL dose 07/14/2020 completed Not Available [facility] 03/14/2023 05:31:57 COVID-19, mRNA, LNP-S, PF, 100 mcg/0.5mL dose or 50 mcg/0.25mL dose 09/13/2021 completed Not Available [facility] 03/14/2023 05:31:58 SARS-COV-2 (COVID-19) vaccine, UNSPECIFIED 03/03/2021 completed Not Available [facility] 03/14/2023 05:31:58 COVID-19, mRNA, LNP-S, bivalent, PF, 30 mcg/0.3 mL dose 02/18/2022 completed Not Available [facility] 03/14/20 05:31:58 pneumococcal polysaccharide PPV23 03/23/2002 completed Not Available [facility] 2022 05:31:58 Hep B, unspecified formulation 07/25/2010 completed Not Available [facility] 03/14/2023 05:31:58 Hep B, unspecified formulation 01/29/2010 completed Not Available [facility] 03/14/2023 05:31:58 Hep B, unspecified formulation 02/27/2010 completed Not Available [facility] 03/14/2023 05:31:58 Hep A, unspecified formulation 07/25/2010 completed Not Available [facility] 03/14/2023 05:31:58 Hep A, unspecified formulation 01/29/2010 completed Not Available [facility] 03/14/2023 05:31:58 influenza, unspecified formulation 02/03/2017 completed Not Available [facility] 03/14/2023 05:31:58 influenza, unspecified formulation 02/05/2011 completed Not Available [facility] 03/14/2023 05:31:58 influenza, unspecified formulation 02/11/2012 completed Not Available [facility] 03/14/2023 05:31:58 influenza, unspecified formulation 02/22/2014 completed Not Available [facility] 03/14/2023 05:31:58 Influenza, high-dose, quadrivalent, PF 03/06/2023 completed Not Available [facility] 05/16/2023 05:31:30 COVID-19, mRNA, LNP-S, PF, bushra-sucrose, 30 mcg/0.3 mL 03/06/2023 completed Not Available [facility] 05/16/2023 05:31:30 Past Encounters Encounter ID Performer Location Encounter Start Date Encounter Closed Date Diagnosis/Indication Diagnosis SNOMED-CT Code Diagnosis ICD10 Code [id number] LEONA BERRIOS [address] [address] [place] [address] 12/05/2023 11:51:55 12/05/2023 13:07:38 Gout 59074201 M10.9 Acute gout 031084681 M10 .9 [id number] QUINN BAKER [facility] [address] [place] [address] 12/26/2023 10:55:10 12/26/2023 12:08:13 Acute low back pain 531228327 M54.50 Gout 20427018 M10.9 Spinal jerod nosis of lumbar region 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.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 243793424 E11.9 Chronic ki dney disease stage 4 872441586 N18.4 Health Concerns Section Related Observation LastModified by Organization Detai ls LastModified Time None Recorded Concern Status LastModified by Organization Details LastModified Time None Recorded Payers Encounter Date Sequence Insurance Name Policy Number Policy Stewart Covered Member ID Stewart Member ID Guarantor Name 12/26/2023 [place] - [facility] (MEDICARE) Cesar Thompson [id number] Cesar Thompson 12/26/2023 1 [facility] (MEDICARE REPLACEMENT/A DVANTAGE - PPO) [id number] Cesar Thompson [id number] Cesar Thompson Notes Date Note Type Note Provider Name and Address Organization Details Recorded Time 12/26/2023 text/html HPI Notes: Pt, 88-M, here for [facility] from [facility] ED 12/21/2023 and 12/24/2023. Pt. [...] 6.9% CKD 4: He was followed with [facility] Nephrology. Thoracic AAA: He was referred back to [facility] V[facility] for his routine monitoring and they [...] reports she does have upcoming appt. at [facility]. QUINN BAKER [address], [place], [address], [facility]. 12/26/2023 13:29:55
--- OUTSIDE RECORDS SUMMARY | 2024-01-25 13:45 | XMS_ITS | Continuity of Care Document ---
Author Organization [facility] [place] [address] Assessment No assessment recorded. Plan of Treatment Reminders Order Date Submit Date Provider Last Modified By Organization Details Last Modified Time Details Appointments Nurse Visit 2023 11:30A M Not available Not available Not available Lab None recorded. Referral None recorded. Procedures None recorded. Surgeries None recorded. Imaging None recorded. Medication Orders tramadol 25 mg tablet 2023 024 [facility], [address] [facility], [place], [address], 01/21/2024 09:39:28 Patient TargetsNo targets recorded. Patient InstructionsNo instructions recorded. Reason for Referral Auger Operator Referral for Ch ronic kidney disease stage 4 87 yo active male with DM, aFib, stage 4 CKD that is progressing Referring Physician: [facility], Encounter Date: 06/05/2023 Vascular Surgeon Referral fo r Abdominal aortic aneurysm without rupture 87 yo M with stage 4 CKD, h/o EVAR, recent non-enhanced CT at [facility] ED 05/17/22 after presenting with [...] Her phone number is Referring Physician: Maximino Lucero [facility], Encounter Date: 09/25/2023 Orthopedic Surgeon Referral for [...] negative from urgent care. Referring Physician: Maximino Lucero [facility], Encounter Date: 10/13/2023 Physical Therapist Referral for Acute low back pain Referring Physician: Maximino Lucero [facility], Encounter Date: 12/26/2023 Results Created Date Observation Date Name Description Value Unit Range Abnormal Flag Note LastModifiedBy Organization Detail LastModifiedTime 12/21/1912/21/2023 vrad repor t Patien t Name: Terrence Thompson Unit #: [id number] Loc: ER Orderi ng Provid er: Accoun t #: [id number] Status : REG ER Primar y [...] of the lower lumbar spine. At L1-L2, Vice President Business [employer] Corporate Development ior osteop hyte disc comple x at L1-L2 with mild bony canal stenos is. At L2-L3, bilate ral facet joint arthro paulo no signif icant thecal sac compre ssion or neural narrow ing. At L3-L4, food services manager ior osteop hyte disc comple x with bilate ral facet joint arthro paulo causin g severe thecal sac compre ssion and severe narrow ing of both neural forami na. At L4-L5: Vice President [employer] Corporate Development ior osteop hyte disc comple x with bilate ral facet joint arthro paulo and ligame ntum flavum hypert rophy causin g severe thecal sac compre ssion and severe narrow ing both neural forami na. At L5-S1, food services manager ior osteop hyte disc comple x causin [...] L3-L4 and L4-L5. Dictat ed and Margarita ticate d by: Leo Omer. Orderi ng:Robby Perera MD Access ion#=[id number] Ordere d By: CC: ------ ------ [...] error, please notify us immedi kyara at [phone] and return the origin al report to us at the addres s above. Thank- you. [email or web address] [facility] [address], [place], [address] 12/22/2023 07:34:46 12/21/19 24 12/21/2023 vrad yulissa robertson Mallorietj robertson Name: Terrence Thompson Unit #: [id number] Loc: ER Orderi ng Provid er: Accoun t #: [id number] Status : REG ER Primar y [...] Omer. Orderi ng:Robby Perera MD Access ion#=[id number] Adelaida d By: CC: ------ ------ ------ ------ ------ ------ ------ ------ ------ ------ ------ ------ ---- Dictat ed By: Report s vrad 0920 0955 Transc ribed By: Di Merge 919 This [...] at the addres s above. Thank- you. [email or web address] [facility] [address] [place], [address] 12/22/2023 07:34:47 12/21/19 24 12/21/2023 CT imagi ng yulissa t Anisa t Name: Terrence Thompson Unit #: [id number] Loc: ER Orderi ng Provid er: Aretha henao,Marie patel QUINN Accxiomara t #: [id number] Status : REG ER Primar [...] Dictat ed By: Emanuel Schmidt M.D. 1221 122 Transc ribed By: Emanuel Schmidt 1221 This [...] at the addres s above. Thank- you. [email or web address] [facility] [address] [place], [address] 12/22/2023 07:34:47 12/21/19 24 12/21/2023 CT imagi ng repor t Patien t Name: Terrence Thompson Mamie Unit #: [id number] Loc: ER Orderi ng Provid er: Marie Austin Accoun t #: [id number] Status : REG ER Primar y Care Provid er: JazmineSalinajaquelinmarkel josé manuel Date of Exam: 12/03 12/26 [...] error, please notify us immedi ately at [phone] and return the origin al report to us at the addres s above. Thank- you. [email or web address] [facility] [address] [place], [address] 12/26/2023 09:17:16 12/24/19 24 12/24/2023 x-ray imagi ng repor t Anisa t Name: Terrence Thompson Unit #: [id number] Loc: ER Orderi ng Provid er: Riya Garza M.D. Accoun t #: [id number] Status : REG ER Primar y [...] at the addres s above. Thank- you. [facility] [address], [place], [address] 12/24/2023 18:07:26 12/24/19 24 12/24/2023 CT imagi ng repor t Anisa t Name: Terrence Thompson Unit #: [id number] Loc: ER Orderi ng Provid er: Riya Garza M.D. t #: [id number] Status : REG ER Primar y [...] error, please notify us immedi berhanely at [phone] and return the origin al report to us at the addres s above. Thank- you. [email or web address] [facility] [address] [place], [address] 12/24/2023 18:07:26 12/28/19 24 12/28/2023 vrad repor t Patien t Name: Terrence Thompsonjustin Mamie Unit #: [id number] Loc: ER Orderi ng Provid er: Accoun t #: [id number] Status : REG ER Primar y [...] possib ly thromb osed Dictat ed and Margarita steinate d by: Shu Gong MD. Orderi ng:P.S DENISE Shaikh MD Access ion#=[id number] Ordere d By: CC: ------ ------ [...] at the addres s above. Thank- you. [facility] [address] [place], [address] 12/29/2023 07:26:06 12/28/19 24 12/28/2023 ultra sound imagi ng yulissa robertson Mallorietj robertson Name: Terrence Thompson Unit #: [id number] Loc: ER Orderi ng Provid er: Sirisha Lawson M.D. Accoun t #: [id number] Status : REG ER Primar y [...] greate r than right. DATA REPOSI TORY: Adelaida balbuena By: Sirisha Lawson M.D. CC: ------ ------ ------ ------ ------ ------ ------ ------ ------ ------ ------ ------ - Dictat ed By: Stephanie Infante 1402 140 Transc ribed By: Mg Verma 140 This is privil eged, confid ential inform ation intend ed only for the provid er named. Any use or distri bution by any person other than this provid er is strict ly prohib ited. If you receiv e this report in error, please notify us immedi berhanely at [phone] and return the origin al report to us at the addres s above. Thank- you. [facility] [address], [place], [address] 12/29/2023 07:26:06 01/08/2001/08/2024 genevieve robertson Name: Terrence Thompson Unit #: [id number] Loc: ER Orderi ng Provid er: Accoun t #: [id number] Status : REG ER Primar y [...] ticate d by: Jade Velasco MD. Orderi ng:P.B OCJ Douglas friedman MD Access ion#=[id number] Ordere d By: CC: ------ ------ ------ ------ ------ ------ ------ ------ ------ ------ ------ ------ ---- Dictat ed By: Report s vrad 213 Transc ribed By: Di Merge 213 This is privil eged, confid [...] at the addres s above. Thank- you. [email or web address] [facility] [address] [place], [address] 01/08/2024 10:02:38 01/08/2001/08/2024 x-ray imagi ng repor t Patitj t Name: ThompsonTerrence bibi Balbuena Unit #: [id number] Loc: ER Orderi ng Provid er: Florecita Cole M.D. Accxiomara t #: [id number] Status : DEP ER Primar y Care Provid er: Alexi Lucero josé manuel Date of Exam: 09/25 Sex: M Admiss [...] - Dictat ed By: Angel Mo M.D. 141 141 Transc ribed By: Chepe MOTA,How katerina 141 This is privil eged, confid ential inform ation intend ed only for the provid er named. Any use or distri bution by any person other than this provid er is strict ly prohib ited. If you receiv e this report in error, please notify us immedi ately at and return the origin al report to us at the addres s above. Thank- you. [email or web address] [facility] [address] [place], [address] 01/08/2024 14:15:50 01/19/20 24 11/07/2020 imagi ng/di [...] Organization Details Recorded Time Erectile dysfunct ion 625716479 [facility] 10:11[facility]06 Hyperlip idemia 01038954 Active 2004 [facility] 4 10:11:57 Type 2 diabetes mellitus without complica tion 939493327 Active 2005 [facility] 4 10:12:37 Steatosi s of liver 397916737 Active 2009 LETTY HOFFMAN [facility] 4 10:12:23 Abdomina l aortic aneurysm without rupture 31291213 Active 2009 [facility] 4 10:09:38 Benign prostati c hyperpla gregory 175819422 Active 2014 [facility] 4 10:10:32 Hernia of anterior abdomina l wall 146521642 Active 2014 [facility] 4 10:11:52 Phimosis 148477952 Active 2015 [facility] 4 10:12:18 Dysthymi a 81731900 Active 2015 [facility] 4 10:11:01 Essentia l hyperten emerson 54881430 Active 2015 [facility] 4 10:11:13 Chronic kidney disease stage 4 355943457 Active 2015 [facility] 4 10:10:38 Low back pain 938546031 Active 2015 [facility] 4 10:12:09 Nicotine dependen ce 68036250 Active 2015 [facility] 4 10:12:13 Disorder of salivary gland 59526951 Active 2016 LOCUST D[facility] 4 10:10:56 Digestiv e system disease screenin g Completed 201610/10/2016 Problem Code: Z13.818; Problem Code Type: ICD-10; Not Available [facility] 3 05:17:20 Atherosc lerosis of coronary artery without angina pectoris 27832848952 4103 Active 2016 LETTYLanie [facility] 4 10:10:18 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 He can stop doxyclin e as he has felt better for the past 48 hours. Problem Code: J40; Problem Code Type: ICD-10; Not Available [facility] 3 05:17:21 Hypomagn esemia 489034898 Completed 201803/06/2023 Problem Code: E83.42; Problem Code Type: ICD-10; Not Available [facility] 4 05:37:17 Colostom y present 404426941 Active 2018 LETTY fuller, [facility]. 4 10:10:45 Heart failure 19162847 Active 2019 LETTY fuller, [facility]. 4 10:11:48 Hearing loss 09345230 Active 2019 LETTY fuller, [facility]. 4 10:11:44 Balaniti s 54924419 Active 2020 LETTY fuller, [facility] 4 10:10:27 Atrial flutter 0803959 Active 2020 LETTY fuller, [facility]. 4 10:10:23 Transien t acanthol ytic dermatos is 00039392 Active 2020 LETTY fuller, [facility]. 4 10:12:32 Intersti tial lung disease 856387250 Active 2021 LETTY fuller, [facility] 4 10:12:04 Internal jeffdeolu m 696918811 Completed 202206/05/2022 Problem Code: H00.029; Problem Code Type: ICD-10; Not Available [facility] 3 05:17:22 Essentia l tremor 105773006 Active 2022 LETTY fuller, [facility]. 4 10:11:19 Gout 71432007 Active 2022 LETTY fuller, [facility]. 4 10:11:38 External hordeolu m 4604050 Completed 202203/06/2023 Problem Code: H00.019; Problem Code Type: ICD-10; Not Available [facility] 4 05:37:17 History of right cataract extracti on 792198618 Completed 201406/06/2020 Problem Code: Z98.41; Problem Code Type: ICD-10; Not Available [facility] 3 05:17:27 Hypervol emia 59306959 Completed 201506/07/2016 Problem Code: E87.70; Problem Code Type: ICD-10; Not Available [facility] 3 05:17:27 Anemia 863563753 Completed 201806/06/2020 Problem Code: D64.9; Problem Code Type: ICD-10; Not Available [facility] 3 05:17:27 Edema 841676707 Completed 202012/11/2021 Problem Code: R60.9; Problem Code Type: ICD-10; Not Available [facility] 3 05:17:27 Impacted cerumen of bilatera l ears 25615193483 86718 Completed 202212/02/2022 Problem Code: H61.23; Problem Code Type: ICD-10; QUINN BAKER [address], [place], [address] , [facility] 12:04:41 Acute pharyngi tis 619855302 Completed 202209/07/2022 Problem Code: J02.9; Problem Code Type: ICD-10; Not Available [facility] 05:17:28 Pleuriti c pain 9581242 Completed 202109/02/2022 Problem Code: R07.81; Problem Code Type: ICD-10; Not Available [facility] 3 05:17:29 Allergic contact dermatit is 189607021 Completed 201906/06/2020 Problem Code: L23.9; Problem Code Type: ICD-10; Not Available [facility] 3 05:17:29 Generali zed enlarged lymph nodes 148855686 Completed 201601/29/2023 10/10/19 17 - Comments only [...] R59.1; Problem Code Type: ICD-10; Not Available [facility] 3 05:17:29 Disorder of soft tissue 82588063 Completed 201906/06/2020 Problem Code: M70.90; Problem Code Type: ICD-10; Not Available [facility] 3 05:17:30 Impotenc e Completed Not Available [facility] 3 05:17:30 Pneumoni a 423866435 Completed 201702/17/2018 Problem Code: J18.9; Problem Code Type: ICD-10; Not Available [facility] 3 05:17:30 Chronic kidney disease stage 3 527384943 Completed 201501/29/2023 06/06/19 21 - Comments only - Rolando Moise MD - Stage 3b, so get full renal panel with labs today. Fluid status okay clinical ly today. Working on BP. Not Available [facility] 3 05:17:30 Upper respirat ory tract infectio n caused by Influenz a virus 58351908124 094566 Completed 202209/02/2022 Problem Code: J11.1; Problem Code Type: ICD-10; Not Available [facility] 3 05:17:31 Disorder of skin and/or subcutan eous tissue 68668736 Completed 201706/06/2020 Problem Code: L98.9; Problem Code Type: ICD-10; Not Available [facility] 3 05:17:31 Cough 32772526 Completed 202209/07/2022 Problem Code: R05.8; Problem Code Type: ICD-10; Not Available [facility] 3 05:17:31 Chest pain 91106793 Completed 202112/11/2021 Problem Code: R07.9; Problem Code Type: ICD-10; Not Available [facility] 3 05:17:32 Primary gout 09196358 Completed 202201/29/2023 Problem Code: M10.00; Problem Code Type: ICD-10; Not Available [facility] 3 05:17:32 Hypercho lesterol emia 53554862 Completed 199601/29/2023 Not Available [facility] 3 05:17:32 Diabetes mellitus 67438832 Completed 200501/29/2023 Not Available [facility] 3 05:17:33 Pain of left shoulder joint 75207001636 597422 Completed 202102/18/2022 Problem Code: M25.512; Problem Code Type: ICD-10; Not Available [facility] 3 05:17:33 Localize d edema 737432725 Completed 201901/11/2020 Problem Code: R60.0; Problem Code Type: ICD-10; Not Available [facility] 3 05:17:33 Eczema 88308285 Completed 202001/29/2023 Problem Code: L30.9; Problem Code Type: ICD-10; Not Available [facility] 3 05:17:34 Prepatel lar bursitis of left knee 29357639430 9103 Completed 202201/29/2023 07/30/19 23 - Comments [...] M70.42; Problem Code Type: ICD-10; Not Available [facility] 3 05:17:34 Hyperten sive disorder 42038464 Completed 200602/06/2016 Not Available [facility] 3 05:17:35 Thoracic aortic aneurysm without rupture 48155315 Active 2022 LETTY fuller, [facility] 4 10:12:28 Ganglion cyst of right hand 35721475075 9107 Active 2022 LETTY DALTON fuller, [facility] 4 10:11:27 Recurren t falls 276252375 Active 2023 QUINN BAKER [address], [facility] [address] , [facility] 4 08:14:47 Aneurysm of thoracic aorta 308513721 Active 2023 QUINN BAKER [address], [facility] [address] , [facility] 4 08:15:13 Impacted cerumen of bilatera l ears 03953444682 47052 Active 2023 Problem Code: H61.23; Problem Code Type: ICD-10; [address], [place], [address] , [facility] 4 12:04:41 Bursitis of olecrano n of left elbow 00891849326 9101 Active 2023 QUINN BAKER [address], [place], [address] , [facility] 4 12:40:14 Trigger finger of left hand 32341602178 199311 Active 2023 QUINN BAKER [address], [place], [address] , [facility] 4 12:43:16 Unsteady when walking 60600975 Active [address], [facility] [address] , [facility] 15:37:59 Pain of left knee joint 85028732785 4107 Active 2023 JAYCEE STANLEY PA-C [address], [place], [address] , [facility] 4 14:05:19 Trigger thumb of left hand 59213173439 9107 Active [address], [facility] [address] , [facility] 4 14:30:58 Acute gout 082401667 Active 2023 LEONA BERRIOS [address], [facility] [address] , [facility] 4 12:58:04 Acute low back pain 809857279 Active [address], [facility] [address] , [facility] 4 10:01:35 Spinal stenosis of lumbar region 28271769 Active [address], [facility] [address] , [facility] 4 11:45:12 Pain in testicle 29169361 Active [address], [facility] [address] , [facility] 4 12:13:30 Degenera tive lumbar spinal stenosis 902288728 Active 2023 Zeynep Bello [facility], [facility] 4 11:05:52 Low blood pressure 75437604 Active [address], [facility] [address] , [facility] 4 09:42:36 Notes:*Problem Name: Hyperch olesterolem [...] 4 Cerumen Removal completed [address], [place], [address] 09/25/2023 12:46:11 Imaging Results None recorded. Procedure Notes None recorded. Medical Equipment None Reported. Allergies Allergen ID Allergen Name Allergen Category Reaction Reaction Severity Criticality Documentation Date Start Date Code Code System Note Provider Name and Address Organization Details Recorded Time neomycin sulfate medicatio n rash moderate Not available 03/14/20232019 7300 RxNorm Stephy Nicole RN [facility], [facility] 4 13:20:31 Medications Name Sig Start [...] morning. 2023 active Dose lowered while at [facility] Not Available Not Available Not Available cyanocoba [...] to affected area on scalp 12/22 completed [facility] Not Available Not Available Not Available [...] 14 days. 2023 active prescrib ed by [facility] Not Available Not Available [...] Not Available Not Available Not Avai lable Comfort EZ Insulin Syringe 0.3 mL 31 [...] Details Last Updated DateTime 4 170.69 cm 29.9 kg/m2 22267.7 4 g 98.1 [degF] 98 % 98 % 58 /min 108 mm[Hg] 60 mm[Hg] MARK WILLSON MA [facility] 16:32:51 Social History Question Answer Notes LastModified by Organizat ion Details LastModified Time Tobacco Smoking Status Former Smoker Quit 2009 KURT RIVAS RN [facility], [facility] 12/05/2023 12:30:15 When Did You Quit [...] Recorded Time Tdap 10/26/2019 completed Not Available [facility] 05:31:57 Influenza, high-dose, trivalent, PF 04/16/2019 completed Not Available [facility] 03/14/2023 05:31:57 Td(adult) unspecified formulation 10/09/2009 completed Not Available [facility] 03/14/2023 05:31:57 Td(adult) unspecified formulation 03/10/1998 completed Not Available [facility] 03/14/2023 05:31:57 Influenza, split virus, trivalent, preservative 01/20/2015 completed Not Available [facility] 03/14/2023 05:31:57 Influenza, split virus, trivalent, preservative 03/22/2016 completed Not Available [facility] 03/14/2023 05:31:57 Pneumococcal Conjugate, unspecified formulation 02/03/2017 completed Not Available [facility] 03/14/2023 05:31:57 Influenza, high-dose, quadrivalent, PF 02/02/2020 completed Not Available [facility] 03/14/2023 05:31:57 Influenza, high-dose, quadrivalent, PF 02/01/2021 completed Not Available [facility] 03/14/2023 05:31:57 Influenza, high-dose, quadrivalent, PF 02/18/2022 completed Not Available [facility] 03/14/2023 05:31:57 COVID-19, mRNA, LNP-S, PF, 100 mcg/0.5mL dose or 50 mcg/0.25mL dose 06/15/2020 completed Not Available [facility] 03/14/2023 05:31:57 COVID-19, mRNA, LNP-S, PF, 100 mcg/0.5mL dose or 50 mcg/0.25mL dose 07/14/2020 completed Not Available [facility] 03/14/2023 05:31:57 COVID-19, mRNA, LNP-S, PF, 100 mcg/0.5mL dose or 50 mcg/0.25mL dose 09/13/2021 completed Not Available [facility] 03/14/2023 05:31:58 SARS-COV-2 (COVID-19) vaccine, UNSPECIFIED 03/03/2021 completed Not Available [facility] 03/14/2023 05:31:58 COVID-19, mRNA, LNP-S, bivalent, PF, 30 mcg/0.3 mL dose 02/18/2022 completed Not Available [facility] 03/14/20 05:31:58 pneumococcal polysaccharide PPV23 03/23/2002 completed Not Available [facility] 2022 05:31:58 Hep B, unspecified formulation 07/25/2010 completed Not Available [facility] 03/14/2023 05:31:58 Hep B, unspecified formulation 01/29/2010 completed Not Available [facility] 03/14/2023 05:31:58 Hep B, unspecified formulation 02/27/2010 completed Not Available [facility] 03/14/2023 05:31:58 Hep A, unspecified formulation 07/25/2010 completed Not Available [facility] 03/14/2023 05:31:58 Hep A, unspecified formulation 01/29/2010 completed Not Available [facility] 03/14/2023 05:31:58 influenza, unspecified formulation 02/03/2017 completed Not Available [facility] 03/14/2023 05:31:58 influenza, unspecified formulation 02/05/2011 completed Not Available [facility] 03/14/2023 05:31:58 influenza, unspecified formulation 02/11/2012 completed Not Available [facility] 03/14/2023 05:31:58 influenza, unspecified formulation 02/22/2014 completed Not Available [facility] 03/14/2023 05:31:58 Influenza, high-dose, quadrivalent, PF 03/06/2023 completed Not Available [facility] 05/16/2023 05:31:30 COVID-19, mRNA, LNP-S, PF, bushra-sucrose, 30 mcg/0.3 mL 03/06/2023 completed Not Available [facility] 05/16/2023 05:31:30 Past Encounters Encounter ID Performer Location Encounter Start Date Encounter Closed Date Diagnosis/Indication Diagnosis SNOMED-CT Code Diagnosis ICD10 Code [id number] LEONA BERRIOS [facility] [address] [place] [address] 12/05/2023 11:51:55 12/05/2023 13:07:38 Gout 32316425 M10.9 Acute gout 612536389 M10 .9 [id number] QUINN BAKER [facility] [address] [place] [address] 12/26/2023 10:55:10 12/26/2023 12:08:13 Acute low back pain 850831023 M54.50 Gout 69769738 M10.9 Spinal jerod nosis of lumbar region 77693413 M48.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 648936443 E11.9 Chronic ki dney disease stage 4 471977083 N18.4 [id number] QUINN BAKER [facility] [address] [place] [address] 12/31/2023 16:16:36 01/06/2024 09:07:42 Pain in testicle 00720623 N50.819 Health Concerns Section Related Observation LastModified by Organization Detai ls LastModified Time None Recorded Concern Status LastModified by Organization Details LastModified Time None Recorded Payers Encounter Date Sequence Insurance Name Policy Number Policy Stewart Covered Member ID Stewart Member ID Guarantor Name 12/31/2023 1 [facility] (MEDICARE REPLACEMENT/A DVANTAGE - PPO) [id number] Cesar Thompson [id number] Cesar Thompson Notes Date Note Type Note Provider Name and Address Organization Details Recorded Time 12/31/2023 text/html HPI Notes: Pt, 88-M, seen at ED 12/28/2023 with testicular pain [...] given a quantity of 5. QUINN BAKER [address], [place], [address], [facility]. 12/31/2023 17:13:53
--- OUTSIDE RECORDS SUMMARY | 2024-01-25 13:45 | XMS_ITS | Continuity of Care Document ---
Author Organization [facility] [place] [address] Assessment No assessment recorded. Plan of Treatment Reminders Order Date Submit Date Provider Last Modified By Organization Details Last Modified Time Details Appointments Nurse Visit 2023 11:30A M Not available Not available Not available Lab None recorded. Referral None recorded. Procedures None recorded. Surgeries None recorded. Imaging None recorded. Medication Orders Novolog FlexPen U-100 Insulin aspart 100 unit/mL (3 mL) subcutane ous 2023 024 [email or web address] [facility], [address] [place] [facility] [place], [address], 01/23/2024 10:23:21 insulin glargine (U-100) 100 unit/mL (3 mL) subcutane ous pen 2023 024 [email or web address] [facility], [address] [place] [facility] [place], [address], 01/23/2024 10:23:21 Accu-Chek Rain Plus test strips 2023 024 [email or web address] [facility], [address] [place] [facility] [place], [address], 01/23/2024 10:23:21 Patient TargetsNo targets recorded. Patient InstructionsNo instructions recorded. Reason for Referral Nurse Executive Referral for ronic kidney disease stage 4 87 yo active male with DM, aFib, stage 4 CKD that is progressing Referring Physician: Rolando Moise, Family Medicine, Encounter Date: 06/05/2023 Vascular Surgeon Referral fo r Abdominal aortic aneurysm without rupture 87 yo M with stage 4 CKD, h/o EVAR, recent non-enhanced CT at [facility] ED 05/17/22 after presenting with back pain showing widened sac in area of aneurysm, recommended contrast study for endoleak. Also thoracic aneurysm. Please direct imaging modality, further evaluation (MRA not approved by insurance). Referring Physician: Rolando Moise [facility], Encounter Date: 06/13/2023 Orthopedic Surgeon Referral for Trigger finger of left hand Left thumb trigger finger bothering pt and he is requesting consult for possible surgical intervention. For scheduling, All appointments should be made through Montse Guadarrama. Her phone number is Referring Physician: Maximino Lucero [facility], Encounter Date: 09/25/2023 Orthopedic Surgeon Referral for [...] from urgent care. Referring Physician: Maximino Lucero [facility], Encounter Date: 10/13/2023 Physical Therapist Referral for Acute low back pain Referring Physician: Maximino Lucero [facility], Encounter Date: 12/26/2023 Results Created Date Observation Date Name Description Value Unit Range Abnormal Flag Note LastModifiedBy Organization Detail LastModifiedTime 12/24/19 24 12/24/2023 x-ray imagi ng repor t Patitj t Name: Terrence Thompson Unit #: [id number] Loc: ER Orderi ng Provid er: Riya Garza M.D. t #: [id number] Status : REG ER Primar y [...] at the addres s above. Thank- you. [email or web address] [address] [place], [address] 12/24/2023 18:07:26 12/24/19 24 12/24/2023 CT imagi shelly Lange t Name: Terrence Thompson Unit #: [id number] Loc: ER Orderi ng Provid er: Riya Garza M.D. Accoun t #: [id number] Status : REG ER Primar y [...] facili ty are submit sheri to the [facility] al Radiol ogy Data Regist ry [...] error, please notify us immedi ately at [phone] and return the origin al report to us at the addres s above. Thank- you. [facility] [address] [place], [address] 12/24/2023 18:07:26 12/28/19 24 12/28/2023 vrad repor t Patien t Name: Terrence Thompson Unit #: [id number] Loc: ER Orderi shelly [facility] er: Accoun t #: [id number] Status : REG ER Primar y [...] ticate d by: Shu Gong MD. Jolie ng:P.S [facility] Anna MD Access ion#=[id number] Adelaida d By: CC: ------ ------ ------ [...] error, please notify us immedi ately at [phone] and return the origin al report to us at the addres s above. Thank- you. [facility] [address], [place], [address] 12/29/2023 07:26:06 12/28/19 24 12/28/2023 ultra sound imagi ng yulissa t Anisa robertson Name: Terrence Thompson Unit #: [id number] Loc: ER Orderi ng Provid er: Sirisha Lawson M.D. Accoun t #: [id number] Status : REG ER Primar y Care Provid er: JazmineSalinacatherine georges Date of Exam: 12/04 09/25 Sex: M [...] error, please notify us immseymour sparrow at [phone] and return the origin al report to us at the addres s above. Thank- you. [email or web address] [facility] [address] [place], [address] 12/29/2023 07:26:06 01/08/20 24 01/08/2024 vrad yulissa t Anisa robertson Name: Terrence Thompson Unit #: [id number] Loc: ER Orderi shelly Provid er: Sony robertson #: [id number] Status : REG ER Primar y [...] cardia c silhou ette. Dictat ed and Authtj ticate d by: Jade Velasco MD. Jolie bravo:P.B [facility] Douglas friedman MD Access ion#=[id number] Ordere d By: CC: ------ ------ ------ ------ ------ ------ ------ ------ ------ ------ ------ ------ ---- Dictat ed By: Report s vrad 213 Transc ribed By: Irene Spain 213 This is privil eged, confid ential inform ation intend ed only for the provid er named. Any use or distri bution by any person other than this provid er is strict ly prohib ited. If you receiv e this report in error, please notify us immedadriano lastly at and return the origin al report to us at the addres s above. Thank- you. [email or web address] [facility] [address] [place], [address] 01/08/2024 10:02:38 01/08/20 24 01/08/2024 x-ray imagi ng repor t Patitj t Name: Terrence Thompson Unit #: [id number] Loc: ER Jolie shelly Provid er: Florecita Cole M.D. Accoun t #: [id number] Status : [facility] ER Primar y Care [facility] er: Alexi Lucero Date of Exam: 09/25 Sex: M Admiss ion Date: : 1935 Age: 88 Exam(s ) XR PORTAB LE CHEST AP EXAM: XR PORTAB LE CHEST AP CLINIC AL HISTOR Y: hypogl ycemia , infect ious workup . TECHNI QUE: 2D digita l imagin g was perfor med. COMPAR SARBINA: Chest x-ray 2023 FINDIN GS: Single AP [...] M.D. 141 141 Transc ribed By: Chepe MOTA,Hui katerina 141 This is privil eged, confid [...] at the addres s above. Thank- you. [email or web address] [place] [address], [place], [address] 01/08/2024 14:15:50 01/19/20 24 11/07/2020 imagi ng/di [...] Organization Details Recorded Time Erectile dysfunct ion 957541725 Active 1959 LETTY fuller [facility] 4 10:11:06 Hyperlip idemia 73276241 Active 2004 LETTY fuller [facility] 4 10:11:57 Type 2 diabetes mellitus without complica tion 498393531 Active 2005 LETTY fuller [facility] 4 10:12:37 Steatosi s [facility] liver 317522324 [facility] 10:12[facility] Abdomina l aortic aneurysm without rupture 28912443 [facility] 4 10:09:38 Benign prostati c hyperpla gregory 241550644 [facility] 4 10:10:32 Hernia of anterior abdomina l wall 221209424 [facility] 4 10:11:52 Phimosis 187482932 [facility] 4 10:12:18 Dysthymi a 17749208 [facility] 4 10:11:01 Essentia l hyperten emerson 24310945 [facility] 4 10:11:13 Chronic kidney disease stage 4 773030769 [facility] 4 10:10:38 Low back pain 570924484 [facility] 4 10:12:09 Nicotine dependen ce 74594145 [facility] 4 10:12:13 Disorder of salivary gland 41336563 [facility] 4 10:10:56 Digestiv e system disease screenin g Completed 201610/10/2016 Problem Code: Z13.818; Problem Code Type: ICD-10; Not Available [facility] 3 05:17:20 Atherosc lerosis of coronary artery without angina pectoris 63085246038 4103 Active 2016 LETTY fuller, [facility], [facility]. 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 4 10:11:33 Bronchit is 23088175 Completed 201604/23/2017 04/16/20 17 - Comments only - Rolando Moise MD - Feeling better. He can stop doxyclin e as he has felt better for the past 48 hours. Problem Code: J40; Problem Code Type: ICD-10; Not Available [facility] 3 05:17:21 Hypomagn esemia 508912325 Completed 201803/06/2023 Problem Code: E83.42; Problem Code Type: ICD-10; Not Available [facility] 4 05:37:17 Colostom y present 781109896 Active 2018 LETTY fuller, [facility], [facility]. 4 10:10:45 Heart failure 17720069 Active 2019 LETTY HOFFMAN [facility], [facility]. 4 10:11:48 Hearing loss 78106882 Active 2019 LETTYLanie HOFFMAN [facility], [facility], [facility]. 4 10:11:44 Balaniti s 10365513 Active 2020 LETTY fuller, [facility], [facility]. 4 10:10:27 Atrial flutter 3475685 Active 2020 LETTY HOFFMAN [facility], [facility], [facility]. 4 10:10:23 Transien t acanthol ytic dermatos is 34969030 Active 2020 LETTY fuller, [facility], [facility]. 4 10:12:32 Intersti tial lung disease 538538080 Active 2021 LETTY HOFFMAN [facility], [facility] 4 10:12:04 Internal hornancyolu m 962193811 Completed 202206/05/2022 Problem Code: H00.029; Problem Code Type: ICD-10; Not Available [facility] 3 05:17:22 Essentia l tremor 540144013 Active 2022 LETTYLanie HOFFMAN jonny, [facility] 4 10:11:19 Gout 19267910 Active 2022 LETTY fuller, [facility] 4 10:11:38 External hordeolu m 8456079 Completed 202203/06/2023 Problem Code: H00.019; Problem Code Type: ICD-10; Not Available [facility] 4 05:37:17 History of right cataract extracti on 158638358 Completed 201406/06/2020 Problem Code: Z98.41; Problem Code Type: ICD-10; Not Available [facility] 3 05:17:27 Hypervol emia 89350193 Completed 201506/07/2016 Problem Code: E87.70; Problem Code Type: ICD-10; Not Available [facility] 3 05:17:27 Anemia 975394457 Completed 201806/06/2020 Problem Code: D64.9; Problem Code Type: ICD-10; Not Available [facility] 3 05:17:27 Edema 034112803 Completed 202012/11/2021 Problem Code: R60.9; Problem Code Type: ICD-10; Not Available [facility] 3 05:17:27 Impacted cerumen of bilatera l ears 33798267300 23913 Completed 202212/02/2022 Problem Code: H61.23; Problem Code Type: ICD-10; QUINN BAKER [address], [place], [address] , [facility] 4 12:04:41 Acute pharyngi tis 074834677 Completed 202209/07/2022 Problem Code: J02.9; Problem Code Type: ICD-10; Not Available [facility] 3 05:17:28 Pleuriti c pain 9967379 Completed 202109/02/2022 Problem Code: R07.81; Problem Code Type: ICD-10; Not Available [facility] 3 05:17:29 Allergic contact dermatit is 723424423 Completed 201906/06/2020 Problem Code: L23.9; Problem Code Type: ICD-10; Not Available [facility] 3 05:17:29 Generali zed enlarged lymph nodes 374568884 Completed 201601/29/2023 10/10/19 17 - Comments only [...] R59.1; Problem Code Type: ICD-10; Not Available [facility] 3 05:17:29 Disorder of soft tissue 72288061 Completed 201906/06/2020 Problem Code: M70.90; Problem Code Type: ICD-10; Not Available [facility] 3 05:17:30 Impotenc e Completed Not Available [facility] 3 05:17:30 Pneumoni a 857031074 Completed 201702/17/2018 Problem Code: J18.9; Problem Code Type: ICD-10; Not Available [facility] 3 05:17:30 Chronic kidney disease stage 3 041106892 Completed 201501/29/2023 06/06/19 21 - Comments only - Rolando Moise MD - Stage 3b, so get full renal panel with labs today. Fluid status okay clinical ly today. Working on BP. Not Available [facility] 3 05:17:30 Upper respirat ory tract infectio n caused by Influenz a virus 10863303059 466118 Completed 202209/02/2022 Problem Code: J11.1; Problem Code Type: ICD-10; Not Available [facility] 3 05:17:31 Disorder of skin and/or subcutan eous tissue 36916311 Completed 201706/06/2020 Problem Code: L98.9; Problem Code Type: ICD-10; Not Available [facility] 3 05:17:31 Cough 96057588 Completed 202209/07/2022 Problem Code: R05.8; Problem Code Type: ICD-10; Not Available [facility] 3 05:17:31 Chest pain 32725981 Completed 202112/11/2021 Problem Code: R07.9; Problem Code Type: ICD-10; Not Available [facility] 3 05:17:32 Primary gout 65500382 Completed 202201/29/2023 Problem Code: M10.00; Problem Code Type: ICD-10; Not Available [facility] 3 05:17:32 Hypercho lesterol emia 67596660 Completed 199601/29/2023 Not Available [facility] 3 05:17:32 Diabetes mellitus 23019079 Completed 200501/29/2023 Not Available [facility] 3 05:17:33 Pain of left shoulder joint 16522623795 398482 Completed 202102/18/2022 Problem Code: M25.512; Problem Code Type: ICD-10; Not Available [facility] 3 05:17:33 Localize d edema 375447124 Completed 201901/11/2020 Problem Code: R60.0; Problem Code Type: ICD-10; Not Available [facility] 3 05:17:33 Eczema 13737305 Completed 202001/29/2023 Problem Code: L30.9; Problem Code Type: ICD-10; Not Available [facility] 3 05:17:34 Prepatel lar bursitis of left knee 36276316045 9103 Completed 202201/29/2023 07/30/19 23 - Comments [...] M70.42; Problem Code Type: ICD-10; Not Available [facility] 3 05:17:34 Hyperten sive disorder 18764299 Completed 200602/06/2016 Not Available [facility] 3 05:17:35 Thoracic aortic aneurysm without rupture 18874272 Active 2022 LETTY fuller, [facility] 4 10:12:28 Ganglion cyst of right hand 03897432374 9107 Active 2022 LETTY fuller, [facility] 4 10:11:27 Recurren t falls 353316520 Active [address], [place], [address] , [facility] 4 08:14:47 Aneurysm of thoracic aorta 769281493 Active [address], [place], [address] , [facility] 4 08:15:13 Impacted cerumen of bilatera l ears 66115908466 89388 Active 2023 Problem Code: H61.23; Problem Code Type: ICD-10; [address], [place], [address] , [facility] 4 12:04:41 Bursitis of olecrano n of left elbow 17264065114 9101 Active 2023 QUINN BAKER [address], [place], [address] , [facility] 4 12:40:14 Trigger finger of left hand 38279574078 204228 Active [address], [facility] [address] , [facility] 4 12:43:16 Unsteady when walking 37032504 Active [address], [facility] [address] , [facility] 4 15:37:59 Pain of left knee joint 37927409591 4107 Active 2023 JAYCEE STANLEY PA-C [address], [facility] [address] , [facility] 4 14:05:19 Trigger thumb of left hand 58617604087 9107 Active [address], [facility] [address] , [facility] 4 14:30:58 Acute gout 732008500 Active 2023 LEONA BERRIOS [address], [facility] [address] , [facility] 4 12:58:04 Acute low back pain 718835981 Active [address], [facility] [address] , [facility] 4 10:01:35 Spinal stenosis of lumbar region 05926761 Active [address], [facility] [address] , [facility] 4 11:45:12 Pain in testicle 16569662 Active 2023 QUINN BAKER [address], [place], [address] , [facility] 4 12:13:30 Degenera tive lumbar spinal stenosis 186462090 Active 2023 Zeynep fuller, [facility] 4 11:05:52 Low blood pressure 15447640 Active [address], [place], [address] , [facility] 4 09:42:36 Notes:*Problem Name: Hyperch olesterolem [...] Time Cerumen Removal completed [address]IN[address], [place], [address], [facility] 09/25/2023 12:46:11 Imaging Results None recorded. Procedure Notes None recorded. Medical Equipment None Reported. Allergies Allergen ID Allergen Name Allergen Category Reaction Reaction Severity Criticality Documentation Date Start Date Code Code System Note Provider Name and Address Organization Details Recorded Time neomycin sulfate medicatio n rash moderate Not available 03/14/20232019 7300 RxNorm Stephy Nicole RN [facility], [facility] 13:20:31 Medications Name Sig Start Date Stop [...] morning. 2023 active Dose lowered while at [facility] Not Available Not Available Not Available [...] to affected area on scalp 12/22 completed [facility] Not Available Not Available Not Available [...] 14 days. 2023 active prescrib ed by [facility] Not Available Not Available Not Available [...] 2023 active Not Available Not Available Not Avrachel lablizbeth oseltamiv ir 30 mg capsule Take [...] Ultra-Fin e 0.5 mL 31 gauge x /16 USE DIRECTED WITH HUMALOG AND LANTUS FOR [...] Not Available Vitals Date Recorded Body height Systolic blood pressure Diastolic blood pressure Provider Name and Address Organization Details Last Updated DateTime 01/23/2024 170.69 cm 116 mm[Hg] 58 mm[Hg] MARK WILLSON MA [facility] 01/23/2024 08:41:44 Social History Question Answer Notes LastModified by Organizat ion Details LastModified Time Tobacco Smoking Status Former Smoker Quit 2009 KURT RIVAS RN [facility], [facility] 12/05/2023 12:30:15 When Did You Quit [...] Recorded Time Tdap 10/26/2019 completed Not Available [facility] 05:31:57 Influenza, high-dose, trivalent, PF 04/16/2019 completed Not Available [facility] 03/14/2023 05:31:57 Td(adult) unspecified formulation 10/09/2009 completed Not Available [facility] 03/14/2023 05:31:57 Td(adult) unspecified formulation 03/10/1998 completed Not Available [facility] 03/14/2023 05:31:57 Influenza, split virus, trivalent, preservative 01/20/2015 completed Not Available [facility] 03/14/2023 05:31:57 Influenza, split virus, trivalent, preservative 03/22/2016 completed Not Available [facility] 03/14/2023 05:31:57 Pneumococcal Conjugate, unspecified formulation 02/03/2017 completed Not Available [facility] 03/14/2023 05:31:57 Influenza, high-dose, quadrivalent, PF 02/02/2020 completed Not Available [facility] 03/14/2023 05:31:57 Influenza, high-dose, quadrivalent, PF 02/01/2021 completed Not Available [facility] 03/14/2023 05:31:57 Influenza, high-dose, quadrivalent, PF 02/18/2022 completed Not Available [facility] 03/14/2023 05:31:57 COVID-19, mRNA, LNP-S, PF, 100 mcg/0.5mL dose or 50 mcg/0.25mL dose 06/15/2020 completed Not Available [facility] 03/14/2023 05:31:57 COVID-19, mRNA, LNP-S, PF, 100 mcg/0.5mL dose or 50 mcg/0.25mL dose 07/14/2020 completed Not Available [facility] 03/14/2023 05:31:57 COVID-19, mRNA, LNP-S, PF, 100 mcg/0.5mL dose or 50 mcg/0.25mL dose 09/13/2021 completed Not Available [facility] 03/14/2023 05:31:58 SARS-COV-2 (COVID-19) vaccine, UNSPECIFIED 03/03/2021 completed Not Available [facility] 03/14/2023 05:31:58 COVID-19, mRNA, LNP-S, bivalent, PF, 30 mcg/0.3 mL dose 02/18/2022 completed Not Available [facility] 03/14/20 05:31:58 pneumococcal polysaccharide PPV23 03/23/2002 completed Not Available [facility] 2022 05:31:58 Hep B, unspecified formulation 07/25/2010 completed Not Available [facility] 03/14/2023 05:31:58 Hep B, unspecified formulation 01/29/2010 completed Not Available [facility] 03/14/2023 05:31:58 Hep B, unspecified formulation 02/27/2010 completed Not Available [facility] 03/14/2023 05:31:58 Hep A, unspecified formulation 07/25/2010 completed Not Available [facility] 03/14/2023 05:31:58 Hep A, unspecified formulation 01/29/2010 completed Not Available [facility] 03/14/2023 05:31:58 influenza, unspecified formulation 02/03/2017 completed Not Available [facility] 03/14/2023 05:31:58 influenza, unspecified formulation 02/05/2011 completed Not Available [facility] 03/14/2023 05:31:58 influenza, unspecified formulation 02/11/2012 completed Not Available [facility] 03/14/2023 05:31:58 influenza, unspecified formulation 02/22/2014 completed Not Available [facility] 03/14/2023 05:31:58 Influenza, high-dose, quadrivalent, PF 03/06/2023 completed Not Available [facility] 05/16/2023 05:31:30 COVID-19, mRNA, LNP-S, PF, bushra-sucrose, 30 mcg/0.3 mL 03/06/2023 completed Not Available [facility] 05/16/2023 05:31:30 Past Encounters Encounter ID Performer Location Encounter Start Date Encounter Closed Date Diagnosis/Indication Diagnosis SNOMED-CT Code Diagnosis ICD10 Code [id number] QUINN BAKER [facility] [address] [place] [address] 12/26/2023 10:55:10 12/26/2023 12:08:13 Acute low back pain 556795377 M54.50 Gout 96311250 M10.9 Spinal jerod nosis of lumbar region 04358087 M48.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 802113567 E11.9 Chronic ki dney disease stage 4 847501259 N18.4 [id number] QUINN BAKER [facility] [address] [place] [address] 12/31/2023 16:16:36 01/06/2024 09:07:42 Pain in testicle 52989489 N50.499 [id number] QUINN BAKER [facility] [address] [place] [address] 01/21/2024 09:08:54 01/21/2024 09:53:59 Low blood pressure 09063403 I95.9 [id number] MARK WILLSON MA [facility] [address] [place] [address] 01/23/2024 08:23:51 01/23/2024 08:50:32 Essential hypertension 62691385 I10 Type 2 alessandra betes mellitus 18838164 E11.9 Health Concerns Section Related Observation LastModified by Organization Detai ls LastModified Time None Recorded Concern Status LastModified by Organization Details LastModified Time None Recorded Payers Encounter Date Sequence Insurance Name Policy Number Policy Stewart Covered Member ID Stewart Member ID Guarantor Name 01/23/2024 1 [facility] (MEDICARE REPLACEMENT/A DVANTAGE - PPO) [id number] Cesar Thompson [id number] Cesar Thompson
--- OUTSIDE RECORDS SUMMARY | 2024-01-25 13:45 | XMS_ITS | Continuity of Care Document ---
Author Organization [facility] Address [place] [address] Assessment No assessment recorded. Plan of Treatment Reminders Order Date Submit Date Provider Last Modified By Organization Details Last Modified Time Details Appointments Nurse Visit 20 024 11:30AM Not available Not available Not available Lab None recorde d. Referral None recorde d. Procedures None recorde d. Surgeries None recorde d. Imaging None recorde d. Medication Orders None recorde d. Patient TargetsNo targets recorded. Patient Instructions Encounter Date Encounter Id Patient Instructions Last Modified By Organization Details Last Modified Time 01/21/2024 [id number] Stop amlodipine Cut Furosemide dose in half and make that 40 mg. Wear compression stockings Not available 01/21/2024 09:42:30 Reason for Referral International Student Advisor Referral for Ch ronic kidney disease stage 4 87 yo active male with DM, aFib, stage 4 CKD that is progressing Referring Physician: Family Natasha Segundo, Encounter Date: 06/05/2023 Vascular Surgeon Referral fo r Abdominal aortic aneurysm without rupture 87 yo M with stage 4 CKD, h/o EVAR, recent non-enhanced CT at [facility] 05/17/22 after presenting with back pain [...] Her phone number is [facility]: 09/25/2023 Orthopedic Surgeon Referral for [...] from urgent care. Referring Physician: Maximino Lucero [facility], Encounter Date: 10/13/2023 Physical Therapist Referral for Acute low back pain Referring Physician: Maximino Lucero [facility], Encounter Date: 12/26/2023 Results Created Date Observation Date Name Description Value Unit Range Abnormal Flag Note LastModifiedBy Organization Detail LastModifiedTime 12/21/1912/21/2023 vrad repor t Patien t Name: Terrence Thompson Mamie Unit #: [id number] Loc: ER Orderi ng Provid er: Accoun t #: [id number] Status : REG ER Primar y [...] of the lower lumbar spine. At L1-L2, Deputy Sheriff Chief ior osteop hyte disc comple x at L1-L2 with mild bony canal stenos is. At L2-L3, bilate ral facet joint arthro paulo no signif icant thecal sac compre ssion or neural narrow ing. At L3-L4, brass finisher ior osteop hyte disc comple x with bilate ral facet joint arthro paulo causin g severe thecal sac compre ssion and severe narrow ing of both neural forami na. At L4-L5: Deputy Sheriff Chief ior osteop hyte disc comple x with bilate ral facet joint arthro paulo and ligame ntum flavum hypert rophy causin g severe thecal sac compre ssion and severe narrow ing both neural forami na. At L5-S1, brass finisher ior osteop hyte disc comple x causin [...] Omer. Orderi ng:Robby Perera MD Access ion#=[id number] Ordermanjula d By: CC: ------ ------ ------ ------ [...] at the addres s above. Thank- you. [email or web address] [facility] [address] [place], [address] 12/22/2023 07:34:46 12/21/19 24 12/21/2023 vrad repor t Patitj t Name: Terrence Thompson Unit #: [id number] Loc: ER Orderi ng Provid er: Accoun t #: [id number] Status : REG ER Primar y [...] Omer. Orderi ng:Robby Perera MD Access ion#=[id number] Ordere d By: CC: ------ ------ ------ ------ ------ ------ ------ ------ ------ ------ ------ ------ ---- Dictat ed By: Report s vrad [id number] Transc ribed By: Di Merge 919 This is privil eged, confid ential inform ation intend ed only for the provid er named. Any use or distri bution by any person other than this formerly [facility] er is strict ly prohib ited. If you receiv e this report in error, please notify us immedi ately at [phone] and return the origin al report to us at the addres s above. Thank- you. [email or web address] [address] [place], [address] 12/22/2023 07:34:47 12/21/19 24 12/21/2023 CT imagi shelly robertson Name: Terrence Thompson Unit #: [id number] Loc: ER Orderi ng Provid er: Aretha rs,Marie n PA Accoun t #: [id number] Status : REG ER Primar [...] 1221 122 Transc ribed By: Emanuel Schmidt 1220 This is privil eged, confid ential inform ation intend ed only for the provid er named. Any use or distri bution by any person other than this provid er is strict ly prohib ited. If you receiv e this report in error, please notify us immedi ately at and return the origin al report to us at the addres s above. Thank- you. [email or web address] [facility] [address], [place], [address] 12/22/2023 07:34:47 12/21/19 24 12/21/2023 CT imagi ng repor t Patien t Name: Terrence Thompson Mamie Unit #: [id number] Loc: ER Orderi ng Provid er: Marie Austin Accoun t #: [id number] Status : REG ER Primar [...] facili ty are submit sheri to the [facility] al Radiol ogy Data Regist ry [...] at the addres s above. Thank- you. [email or web address] [facility] [address] [place], [address] 12/26/2023 09:17:16 12/24/1912/24/2023 x-ray imagi ng repor t Anisa t Name: Terrence Thompson Unit #: [id number] Loc: ER Orderi ng Provid er: Riya Garza M.D. Accoun t #: [id number] Status : REG ER Primar y [...] at the addres s above. Thank- you. [facility] [address], [place], [address] 12/24/2023 18:07:26 12/24/19 24 12/24/2023 CT imagi ng repor t Anisa t Name: Terrence Thompson Mamie Unit #: [id number] Loc: ER Orderi ng Provid er: Riya Garza M.D. Accoun t #: [id number] Status : REG ER Primar y Care Provid er: JazmineAlexi friedman josé manuel Date of Exam: 12/04 05/28 [...] Regist ry (DIR) with the [place] [employer]iol [facility] (ACR). RADIAT ION [...] error, please notify us immedi berhanely at [phone] and return the origin al report to us at the addres s above. Thank- you. [facility] [address] [place], [address] 12/24/2023 18:07:26 12/28/19 24 12/28/2023 vrad repor t Patien t Name: Terrence Thompson leighjustin Mamie Unit #: [id number] Loc: ER Orderi ng Provid er: Accoun t #: [id number] Status : REG ER Primar y [...] with color Dopple r and image docume sudhatio n. COMPAR SABRINA: US RENAL 08/09/19 22 [...] steinate d by: Shu Gong MD. Orderi ng:PSabina Shaikh MD Access ion#=[id number] Ordere d By: CC: ------ ------ [...] at the addres s above. Thank- you. [email or web address] [facility] [address] [place], [address] 12/29/2023 07:26:06 12/28/19 24 12/28/2023 ultra sound imagi ng yulissa robertson Mallorietj robertson Name: Terrence Thompson Unit #: [id number] Loc: ER Orderi ng Provid er: Sirisha Lawson M.D. Accoun t #: [id number] Status : REG ER Primar y [...] at the addres s above. Thank- you. [email or web address] [facility] [address], [place], [address] 12/29/2023 07:26:06 01/08/20 24 01/08/2024 vrad yulissa robertson Name: Terrence Thompson Unit #: [id number] Loc: ER Orderi ng Provid er: Accoun t #: [id number] Status : REG ER Primar y [...] ticate d by: Jade Velasco MD. Orderi ng:PLaureB OCJ Douglas friedman MD Access ion#=[id number] Ordere d By: CC: ------ ------ [...] at the addres s above. Thank- you. [facility] [address], [place], [address] 01/08/2024 10:02:38 01/08/20 24 01/08/2024 x-ray imagi ng repor t Patien t Name: Terrence Thompson Mamie Unit #: [id number] Loc: ER Orderi shelly Provid er: Florecita Cole M.D. Accoun t #: [id number] Status : DEP ER Primar y Care Provid er: Jazmine Salinacatherine georges Date of Exam: 09/25 Sex: M Admiss [...] - Dictat ed By: Angel Mo M.D. 1411 141 Transc ribed By: Chepe MOTA,Hui katerina 1411 This is privil eged, confid ential inform ation intend ed only for the provid er named. Any use or distri bution by any person other than this provid er is strict ly prohib ited. If you receiv e this report in error, please notify us immedi ately at and return the origin al report to us at the addres s above. Thank- you. [facility] [address], [place], [address] 01/08/2024 14:15:50 01/19/20 24 11/07/2020 imagi ng/di [...] ation record ed. Not Available 01/18 19:17:19 01/19/2007/19/2018 imagi ng/di agnos tic resul t No [...] Organization Details Recorded Time Erectile dysfunct ion 256329640 Active [facility] 10:11:06 Hyperlip idemia 75791493 Active 2004 [facility] 4 10:11:57 Type 2 diabetes mellitus without complica tion 505580333 Active 2005 LETTY HOFFMAN [facility] 4 10:12:37 Steatosi s of liver 584623940 Active 2009 LETTY HOFFMAN [facility] 4 10:12:23 Abdomina l aortic aneurysm without rupture 63656360 [facility] 4 10:09:38 Benign prostati c hyperpla gregory 867031652 Active 2014 [facility] 4 10:10:32 Hernia of anterior abdomina l wall 302262219 Active 2014 [facility] 4 10:11:52 Phimosis 984488626 Active 2015 [facility] 4 10:12:18 Dysthymi a 23551006 Active 2015 [facility] 4 10:11:01 Essentia l hyperten emerson 49861486 Active 2015 [facility] 4 10:11:13 Chronic kidney disease stage 4 695064292 Active 2015 [facility] 4 10:10:38 Low back pain 693175819 Active 2015 [facility] 4 10:12:09 Nicotine dependen ce 16878951 Active 2015 [facility] 4 10:12:13 Disorder of salivary gland 73532537 Active 2016 LESTER PRAIRIE DALTON [facility] 4 10:10:56 Digestiv e system disease screenin g Completed 201610/10/2016 Problem Code: Z13.818; Problem Code Type: ICD-10; Not Available [facility] 3 05:17:20 Atherosc lerosis of coronary artery without angina pectoris 20387417999 4103 Active 2016 LESTER PRAIRIE DALTON [facility] 4 10:10:18 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 He can stop doxyclin e as he has felt better for the past 48 hours. Problem Code: J40; Problem Code Type: ICD-10; Not Available [facility] 3 05:17:21 Hypomagn esemia 377586467 Completed 201803/06/2023 Problem Code: E83.42; Problem Code Type: ICD-10; Not Available [facility] 4 05:37:17 Colostom y present 190239260 Active 2018 LETTY fuller, [facility]. 4 10:10:45 Heart failure 39822308 Active 2019 LETTY fuller, [facility]. 4 10:11:48 Hearing loss 91782090 Active 2019 LETTY fuller, [facility]. 4 10:11:44 Balaniti s 66641834 Active 2020 LETTY fuller, [facility] 4 10:10:27 Atrial flutter 6668610 Active 2020 LETTY fuller, [facility] 4 10:10:23 Transien t acanthol ytic dermatos is 06276796 Active 2020 LETTY fuller, [facility] 4 10:12:32 Intersti tial lung disease 763910139 Active 2021 LETTY fuller, [facility] 4 10:12:04 Internal hordeolu m 666337908 Completed 202206/05/2022 Problem Code: H00.029; Problem Code Type: ICD-10; Not Available [facility] 3 05:17:22 Essentia l tremor 630103886 Active 2022 LETTY fuller, [facility]. 4 10:11:19 Gout 76233551 Active 2022 LETTY fuller, [facility]. 4 10:11:38 External hordeolu m 7823304 Completed 202203/06/2023 Problem Code: H00.019; Problem Code Type: ICD-10; Not Available formerly [facility] 4 05:37:17 History of right cataract extracti on 067751268 Completed 201406/06/2020 Problem Code: Z98.41; Problem Code Type: ICD-10; Not Available [facility] 05:17:27 Hypervol emia 12940492 Completed 201506/07/2016 Problem Code: E87.70; Problem Code Type: ICD-10; Not Available [facility] 05:17:27 Anemia 116000645 Completed 201806/06/2020 Problem Code: D64.9; Problem Code Type: ICD-10; Not Available [facility] 3 05:17:27 Edema 701449875 Completed 202012/11/2021 Problem Code: R60.9; Problem Code Type: ICD-10; Not Available [facility] 05:17:27 Impacted cerumen of bilatera l ears 84007791422 55552 Completed 202212/02/2022 Problem Code: H61.23; Problem Code Type: ICD-10; QUINN BAKER [address], [place], [address] , [facility] 12:04:41 Acute pharyngi tis 160453209 Completed 202209/07/2022 Problem Code: J02.9; Problem Code Type: ICD-10; Not Available [facility] 05:17:28 Pleuriti c pain 9160672 Completed 202109/02/2022 Problem Code: R07.81; Problem Code Type: ICD-10; Not Available [facility] 3 05:17:29 Allergic contact dermatit is 719158007 Completed 201906/06/2020 Problem Code: L23.9; Problem Code Type: ICD-10; Not Available [facility] 05:17:29 Generali zed enlarged lymph nodes 632512026 Completed 201601/29/2023 10/10/19 17 - Comments only [...] R59.1; Problem Code Type: ICD-10; Not Available [facility] 3 05:17:29 Disorder of soft tissue 50859078 Completed 201906/06/2020 Problem Code: M70.90; Problem Code Type: ICD-10; Not Available [facility] 3 05:17:30 Impotenc e Completed Not Available [facility] 3 05:17:30 Pneumoni a 759261090 Completed 201702/17/2018 Problem Code: J18.9; Problem Code Type: ICD-10; Not Available [facility] 3 05:17:30 Chronic kidney disease stage 3 610825352 Completed 201501/29/2023 06/06/19 21 - Comments only - Rolando Moise MD - Stage 3b, so get full renal panel with labs today. Fluid status okay clinical ly today. Working on BP. Not Available [facility] 3 05:17:30 Upper respirat ory tract infectio n caused by Influenz a virus 69754089636 468589 Completed 202209/02/2022 Problem Code: J11.1; Problem Code Type: ICD-10; Not Available [facility] 3 05:17:31 Disorder of skin and/or subcutan eous tissue 32570028 Completed 201706/06/2020 Problem Code: L98.9; Problem Code Type: ICD-10; Not Available [facility] 3 05:17:31 Cough 46971350 Completed 202209/07/2022 Problem Code: R05.8; Problem Code Type: ICD-10; Not Available [facility] 3 05:17:31 Chest pain 84916993 Completed 202112/11/2021 Problem Code: R07.9; Problem Code Type: ICD-10; Not Available [facility] 3 05:17:32 Primary gout 80616055 Completed 202201/29/2023 Problem Code: M10.00; Problem Code Type: ICD-10; Not Available [facility] 3 05:17:32 Hypercho lesterol emia 32477172 Completed 199601/29/2023 Not Available formerly [facility] 3 05:17:32 Diabetes mellitus 69877622 Completed 200501/29/2023 Not Available formerly [facility] 3 05:17:33 Pain of left shoulder joint 44249769872 537887 Completed 202102/18/2022 Problem Code: M25.512; Problem Code Type: ICD-10; Not Available [facility] 3 05:17:33 Localize d edema 873525151 Completed 201901/11/2020 Problem Code: R60.0; Problem Code Type: ICD-10; Not Available [facility] 3 05:17:33 Eczema 02918551 Completed 202001/29/2023 Problem Code: L30.9; Problem Code Type: ICD-10; Not Available [facility] 3 05:17:34 Prepatel lar bursitis of left knee 02343683249 9103 Completed 202201/29/2023 07/30/19 23 - Comments only - Rolando Nolan is in a lot of pain, but [...] M70.42; Problem Code Type: ICD-10; Not Available [facility] 3 05:17:34 Hyperten sive disorder 25426576 Completed 200602/06/2016 Not Available [facility] 3 05:17:35 Thoracic aortic aneurysm without rupture 44252545 Active 2022 LETTY fuller [facility] 4 10:12:28 Ganglion cyst of right hand 98518320332 9107 Active 2022 LETTY fuller, [facility] 4 10:11:27 Recurren t falls 166430866 Active 2023 QUINN BAKER [address], [facility] [address] , [facility] 4 08:14:47 Aneurysm of thoracic aorta 606657284 Active 2023 QUINN BAKER [address], [facility] [address] , [facility] 08:15:13 Impacted cerumen of bilatera l ears 50061618239 17168 Active 2023 Problem Code: H61.23; Problem Code Type: ICD-10; QUINN BAKER [address], [facility] [address] , [facility] 4 12:04:41 Bursitis of olecrano n of left elbow 19207472146 9101 Active 2023 QUINN BAKER [address], [facility] [address] , [facility] 4 12:40:14 Trigger finger of left hand 70158004730 782643 Active 2023 QUINN BAKER [address], [facility] [address] , [facility] 4 12:43:16 Unsteady when walking 05028913 Active 2023 QUINN BAKER [address], [facility] [address] , [facility] 15:37:59 Pain of left knee joint 63960642421 4107 Active 2023 JAYCEE STANLEY PA-C [address], [place], [address] , [facility] 4 14:05:19 Trigger thumb of left hand 59943489394 9107 Active 2023 QUINN BAKER [address], [facility] [address] , [facility] 4 14:30:58 Acute gout 071412710 Active 2023 LEONA BERRIOS [address], [facility] [address] , [facility] 4 12:58:04 Acute low back pain 913112838 Active [address], [facility] [address] , [facility] 4 10:01:35 Spinal stenosis of lumbar region 09420242 Active [address], [facility] [address] , [facility] 4 11:45:12 Pain in testicle 50717423 Active [address], [facility] [address] , [facility] 4 12:13:30 Degenera tive lumbar spinal stenosis 413417828 Active 2023 Zeynep Bello [facility], [facility] 4 11:05:52 Low blood pressure 86148828 Active [address], [facility] [address] , [facility] 4 09:42:36 Notes:*Problem Name: Hyperch olesterolem *ICD-10 [...] 4 Cerumen Removal completed [address], [place], [address] 09/25/2023 12:46:11 Imaging Results None recorded. Procedure Notes None recorded. Medical Equipment None Reported. Allergies Allergen ID Allergen Name Allergen Category Reaction Reaction Severity Criticality Documentation Date Start Date Code Code System Note Provider Name and Address Organization Details Recorded Time neomycin sulfate medicatio n rash moderate Not available 03/14/20232019 7300 RxNorm Stephy Nicole RN [facility], [facility] 4 13:20:31 Medications Name Sig Start [...] morning. 2023 active Dose lowered while at [facility] Not Available Not Available Not Available cyanocoba [...] affected area twice a day with clotrima adair, to tip of penis 11/03 completed Not Available Not Available Not Available furosemid e 20 mg tablet Take 1 tab by mouth once daily for fluid 02/12 completed Not Available Not Available Not Available gabapenti n 100 mg capsule Take 1 capsule 3 times a day by oral route for 14 days. 2023 active prescrib ed by [facility] Not Available Not Available Not Available [...] Updated DateTime 4 170.69 cm 28.4 kg/m2 00944.2 5 g 97.5 [degF] 98 % 98 % 66 /min 100 mm[Hg] 50 mm[Hg] MARK WILLSON MA [facility] 09:19:03 Social History Question Answer Notes LastModified by Organizat ion Details LastModified Time Tobacco Smoking Status Former Smoker Quit 2009 KURT RIVAS RN [facility], [facility] 12/05/2023 12:30:15 When Did You Quit [...] Recorded Time Tdap 10/26/2019 completed Not Available [facility] 05:31:57 Influenza, high-dose, trivalent, PF 04/16/2019 completed Not Available [facility] 03/14/2023 05:31:57 Td(adult) unspecified formulation 10/09/2009 completed Not Available [facility] 03/14/2023 05:31:57 Td(adult) unspecified formulation 03/10/1998 completed Not Available [facility] 03/14/2023 05:31:57 Influenza, split virus, trivalent, preservative 01/20/2015 completed Not Available [facility] 03/14/2023 05:31:57 Influenza, split virus, trivalent, preservative 03/22/2016 completed Not Available [facility] 03/14/2023 05:31:57 Pneumococcal Conjugate, unspecified formulation 02/03/2017 completed Not Available [facility] 03/14/2023 05:31:57 Influenza, high-dose, quadrivalent, PF 02/02/2020 completed Not Available [facility] 03/14/2023 05:31:57 Influenza, high-dose, quadrivalent, PF 02/01/2021 completed Not Available [facility] 03/14/2023 05:31:57 Influenza, high-dose, quadrivalent, PF 02/18/2022 completed Not Available [facility] 03/14/2023 05:31:57 COVID-19, mRNA, LNP-S, PF, 100 mcg/0.5mL dose or 50 mcg/0.25mL dose 06/15/2020 completed Not Available [facility] 03/14/2023 05:31:57 COVID-19, mRNA, LNP-S, PF, 100 mcg/0.5mL dose or 50 mcg/0.25mL dose 07/14/2020 completed Not Available [facility] 03/14/2023 05:31:57 COVID-19, mRNA, LNP-S, PF, 100 mcg/0.5mL dose or 50 mcg/0.25mL dose 09/13/2021 completed Not Available [facility] 03/14/2023 05:31:58 SARS-COV-2 (COVID-19) vaccine, UNSPECIFIED 03/03/2021 completed Not Available [facility] 03/14/2023 05:31:58 COVID-19, mRNA, LNP-S, bivalent, PF, 30 mcg/0.3 mL dose 02/18/2022 completed Not Available [facility] 03/14/20 05:31:58 pneumococcal polysaccharide PPV23 03/23/2002 completed Not Available [facility] 2022 05:31:58 Hep B, unspecified formulation 07/25/2010 completed Not Available [facility] 03/14/2023 05:31:58 Hep B, unspecified formulation 01/29/2010 completed Not Available [facility] 03/14/2023 05:31:58 Hep B, unspecified formulation 02/27/2010 completed Not Available [facility] 03/14/2023 05:31:58 Hep A, unspecified formulation 07/25/2010 completed Not Available [facility] 03/14/2023 05:31:58 Hep A, unspecified formulation 01/29/2010 completed Not Available [facility] 03/14/2023 05:31:58 influenza, unspecified formulation 02/03/2017 completed Not Available [facility] 03/14/2023 05:31:58 influenza, unspecified formulation 02/05/2011 completed Not Available [facility] 03/14/2023 05:31:58 influenza, unspecified formulation 02/11/2012 completed Not Available [facility] 03/14/2023 05:31:58 influenza, unspecified formulation 02/22/2014 completed Not Available [facility] 03/14/2023 05:31:58 Influenza, high-dose, quadrivalent, PF 03/06/2023 completed Not Available [facility] 05/16/2023 05:31:30 COVID-19, mRNA, LNP-S, PF, bushra-sucrose, 30 mcg/0.3 mL 03/06/2023 completed Not Available [facility] 05/16/2023 05:31:30 Past Encounters Encounter ID Performer Location Encounter Start Date Encounter Closed Date Diagnosis/Indication Diagnosis SNOMED-CT Code Diagnosis ICD10 Code [id number] QUINN BAKER [facility] [address] [place] [address] 12/26/2023 10:55:10 12/26/2023 12:08:13 Acute low back pain 079265408 M54.50 Gout 87653504 M10.9 Spinal jerod nosis of lumbar region [id number] M48.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 [id number] E11.9 Chronic ki dney disease stage 4 [id number] N18.4 [id number] QUINN BAKER [facility] [address] [place] [address] 12/31/2023 16:16:36 01/06/2024 09:07:42 Pain in testicle [id number] N50.259 [id number] QUINN BAKER [facility] [address] [place] [address] 01/21/2024 09:08:54 01/21/2024 09:53:59 Low blood pressure [id number] I95.9 Health Concerns Section Related Observation LastModified by Organization Detai ls LastModified Time None Recorded Concern Status LastModified by Organization Details LastModified Time None Recorded Payers Encounter Date Sequence Insurance Name Policy Number Policy Stewart Covered Member ID Stewart Member ID Guarantor Name 01/21/2024 1 [facility] (MEDICARE REPLACEMENT/A DVANTAGE - PPO) [id number] Cesar Thompson [id number] Cesar Thompson Notes Date Note Type Note Provider Name and Address Organization Details Recorded Time 01/21/2024 text/html HPI Notes: Pt, h mimi, [...] night and day time napping. QUINN BAKER [address], [place], [address], [facility]. 01/21/2024 17:54:34
--- OUTSIDE RECORDS SUMMARY | 2024-01-25 13:45 | XMS_ITS | Continuity of Care Document ---
Author Organization [facility] [place] [address] Assessment No assessment recorded. Plan of Treatment Reminders Order Date Submit Date Provider Last Modified By Organization Details Last Modified Time Details Appointments Nurse Visit 20 2023 11:30A M Not available Not available Not available Lab None recorded. Referral None recorded. Procedures None recorded. Surgeries None recorded. Imaging None recorded. Medication Orders prednison e 20 mg tablet 2023 024 [email or web address] [facility], [address] [facility], [place], [address], 01/21/2024 09:45:52 Patient TargetsNo targets recorded. Patient Instructions Encounter Date Encounter Id Patient Instructions Last Modified By Organization Details Last Modified Time 12/05/2023 [id number] Nice to meet you today You have [...] PCP in 3 weeks if you wish. [email or web address] Not available 12/05/2023 16:12:42 Reason for Referral Resolution Manager Referral for ronic kidney disease stage 4 87 yo active male with DM, aFib, stage 4 CKD that is progressing Referring Physician: Rolando Raser, Family Medicine, Encounter Date: 06/05/2023 Vascular Surgeon Referral fo r Abdominal aortic aneurysm without rupture 87 yo M with stage 4 CKD, h/o EVAR, recent non-enhanced CT at [facility] 05/17/22 after presenting with back pain showing widened sac in area of aneurysm, recommended contrast study for endoleak. Also thoracic aneurysm. Please direct imaging modality, further evaluation (MRA not approved by insurance). Referring Physician: Rolando Moise [facility], Encounter Date: 06/13/2023 Orthopedic Surgeon Referral for Trigger finger of left hand Left thumb trigger finger bothering pt and he is requesting consult for possible surgical intervention. For scheduling, All appointments should be made through Montse Guadarrama. Her phone number is Referring Physician: Maximino Lucero [facility], Encounter Date: 09/25/2023 Orthopedic Surgeon Referral for [...] from urgent care. Referring Physician: Maximino Lucero [facility], Encounter Date: 10/13/2023 Physical Therapist Referral for Acute low back pain Referring Physician: Maximino Lucero [facility], Encounter Date: 12/26/2023 Results Created Date Observation Date Name Description Value Unit Range Abnormal Flag Note LastModifiedBy Organization Detail LastModifiedTime 12/21/19 24 12/21/2023 vrad yulissa robertson Name: Terrence Thompson Unit #: [id number] Loc: ER Orderi ng Provid er: Accxiomara t #: [id number] Status : REG ER Primar y [...] of the lower lumbar spine. At L1-L2, Dough Machine Operator ior osteop hyte disc comple x at L1-L2 with mild bony canal stenos is. At L2-L3, bilate ral facet joint arthro paulo no signif icant thecal sac compre ssion or neural narrow ing. At L3-L4, veneer supervisor ior osteop hyte disc comple x with bilate ral facet joint arthro paulo causin g severe thecal sac compre ssion and severe narrow ing of both neural forami na. At L4-L5: Dough Machine Operator ior osteop hyte disc comple x with bilate ral facet joint arthro paulo and ligame ntum flavum hypert rophy causin g severe thecal sac compre ssion and severe narrow ing both neural forami na. At L5-S1, veneer supervisor ior osteop hyte disc comple x causin [...] Authen ticate d by: Leo Omer. Orderi ng:PPolly Perera MD Access ion#=[id number] Ordere d By: CC: ------ ------ ------ ------ ------ ------ ------ ------ ------ ------ ------ ------ ---- Dictat ed By: Report s vrad [id number] [id number] Transc ribed By: Irene Merge 919 This is privil eged, confid [...] at the addres s above. Thank- you. [email or web address] [address], [place], [address] 12/22/2023 07:34:46 12/21/19 24 12/21/2023 vrad yulissa robertson Name: Terrence Thompson Unit #: [id number] Loc: ER Orderi ng Provid er: Sony t #: [id number] Status : REG ER Primar y Care [facility] er: Alexi Lucero josé manuel Date of [...] Omer. Orderi ng:Robby Perera MD Access ion#=[id number] Ordere d By: CC: ------ ------ ------ ------ ------ ------ ------ ------ ------ ------ ------ ------ ---- Dictat ed By: Report s vrad [id number] Transc ribed By: Irene Merge 0920 This is privil eged, confid ential inform ation intend ed only for the provid er named. Any use or distri bution by any person other than this provid er is strict ly prohib ited. If you receiv e this report in error, please notify us immedi ately at and return the origin al report to us at the addres s above. Thank- you. [facility] [address], [place], [address] 12/22/2023 07:34:47 12/21/1912/21/2023 CT imagi ng repor t Patitj t Name: Terrence Thompson Unit #: [id number] Loc: ER Orderi ng Provid er: Marie Austin Accoun t #: [id number] Status : REG ER Primar [...] most marked at L3-4 and L4-L5. IMPRES EMESRON: 1. Multil evel degene rative change s [...] facili ty are submit sheri to the [facility] al Radiol ogy Data Regist ry [...] at the addres s above. Thank- you. [email or web address] [address] [place], [address] 12/22/2023 07:34:47 12/21/19 24 12/21/2023 CT imagi ng repor t Patien t Name: Terrence Thompson Unit #: [id number] Loc: ER Orderi ng Provid er: Marie Austin QUINN Accxiomara t #: [id number] Status : REG ER Primar [...] at the addres s above. Thank- you. [email or web address] [facility] [address], [address] 12/26/2023 09:17:16 12/24/19 24 12/24/2023 x-ray imagi ng repor t Patien t Name: Terrence Thompson Mamie Unit #: [id number] Loc: ER Orderi ng Provid er: Riya Garza M.D. Accoun t #: [id number] Status : REG ER Primar y [...] error, please notify us immedi ately at [phone] and return the origin al report to us at the addres s above. Thank- you. [email or web address] [facility] [address] [place], [address] 12/24/2023 18:07:26 12/24/19 24 12/24/2023 CT imagi ng repor t Patien t Name: Terrence Thompson Mamie Unit #: [id number] Loc: ER Orderi ng Provid er: Riya Garza M.D. Accoun t #: [id number] Status : REG ER Primar y [...] facili ty are submit sheri to the [facility] al Radiol ogy Data Regist ry [...] bution by any person other than this [facility] er is strict ly prohib ited. If you receiv e this report in error, please notify us immedi berhanely at and return the origin al report to us at the addres s above. Thank- you. [email or web address] [place], [address] 12/24/2023 18:07:26 12/28/19 24 12/28/2023 vrad repor t Patien t Name: Terrence Thompson Unit #: [id number] Loc: ER Orderi ng Provid er: Accxiomara t #: [id number] Status : REG ER Primar y Care Provid er: Jazmine Salinajaquelinmarkel [place] Date of Exam: 12/04 09/25 Sex: [...] ticate d by: Shu Gong MD. Orderi ng:P.S [facility] Anna MD Access ion#=[id number] Ordere d By: CC: ------ ------ [...] error, please notify us immedi berhanely at [phone] and return the origin al report to us at the addres s above. Thank- you. [facility] [address], [address] 12/29/2023 07:26:06 12/28/19 24 12/28/2023 ultra sound imagi ng repor t Patitj t Name: Terrence Thompson Unit #: [id number] Loc: ER Orderi ng Provid er: Sirisha Lawson M.D. Accoun t #: [id number] Status : REG ER Primar y [...] at the addres s above. Thank- you. [place] [address] [place], [address] 12/29/2023 07:26:06 01/08/20 24 01/08/2024 genevieve robertson Name: Terrence Thompson Unit #: [id number] Loc: ER Orderi shelly Provid er: Sony t #: [id number] Status : REG ER Primar y [...] Authen ticate d by: Jade Velasco MD. Jolie ng:P.B OCDoc friedman MD Access ion#=[id number] Ordere d By: CC: ------ ------ ------ ------ ------ ------ ------ ------ ------ ------ ------ ------ ---- Dictat ed By: Report s vrad 0214 [id number] Transc ribed By: Di Merge 213 This [...] at the addres s above. Thank- you. [email or web address] [facility] [address] [place], [address] 01/08/2024 10:02:38 01/08/2001/08/2024 x-ray imagi ng yulissa robertson Mallorietj robertson Name: Terrence Thompson Unit #: [id number] Loc: ER Jolie ng Provid er: Florecita Cole M.D. Accoun t #: [id number] Status : DEP ER Primar y Care [...] ------ ------ ------ - Dictat ed By: nAgel Mo M.D. 1411 141 Transc ribed By: [...] at the addres s above. Thank- you. [email or web address] [facility] [address] [place], [address] 01/08/2024 14:15:50 01/19/20 24 11/07/2020 imagi ng/di [...] Organization Details Recorded Time Erectile dysfunct ion 699349517 Active 1959 LETTY fuller [facility]. 4 10:11:06 Hyperlip idemia 24432585 Active 2004 LETTY fuller [facility]. 4 10:11:57 Type 2 diabetes mellitus without complica tion 226175477 Active 2005 LETTY fuller [facility]. 4 10:12:37 Steatosi s of liver 118514803 Active 2009 LETTY fuller [facility] 4 10:12:23 Abdomina l aortic aneurysm without rupture 73122673 [facility] 4 10:09:38 Benign prostati c hyperpla gregory 466428230 [facility] 4 10:10:32 Hernia of anterior abdomina l wall 065095730 [facility] 4 10:11:52 Phimosis 095805013 Active [facility] 4 10:12:18 Dysthymi a 66532623 [facility] 4 10:11:01 Essentia l hyperten emerson 51299286 [facility] 4 10:11:13 Chronic kidney disease stage 4 349566997 Active 2015 [facility] 4 10:10:38 Low back pain 318264515 [facility] 4 10:12:09 Nicotine dependen ce 79041495 [facility] 4 10:12:13 Disorder of salivary gland 81761377 [facility] 4 10:10:56 Digestiv e system disease screenin g Completed 201610/10/2016 Problem Code: Z13.818; Problem Code Type: ICD-10; Not Available [facility] 3 05:17:20 Atherosc lerosis of coronary artery without angina pectoris 85842711217 4103 [facility] 4 10:10:18 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 He can stop doxyclin e as he has felt better for the past 48 hours. Problem Code: J40; Problem Code Type: ICD-10; Not Available [facility] 3 05:17:21 Hypomagn esemia 531415989 Completed 201803/06/2023 Problem Code: E83.42; Problem Code Type: ICD-10; Not Available [facility] 4 05:37:17 Colostom y present 135647955 Active 2018 LETTY fuller, [facility] 4 10:10:45 Heart failure 98571450 Active [address] [facility], [facility] 4 10:11:48 Hearing loss 27802838 Active [address] [facility], [facility]. 4 10:11:44 Balaniti s 57055983 Active [address] [facility], [facility]. 4 10:10:27 Atrial flutter 5808718 Active [address] [facility], [facility] 4 10:10:23 Transien t acanthol ytic dermatos is 56839085 Active [address] [facility], [facility]. 4 10:12:32 Intersti tial lung disease 322960744 Active 2021 LETTYLanie PUCKETTUE jonny, [facility], [facility]. 4 10:12:04 Internal hordeolu m 685011628 Completed 202206/05/2022 Problem Code: H00.029; Problem Code Type: ICD-10; Not Available [facility] 3 05:17:22 Essentia l tremor 625656425 Active 2022 LETTY fuller, [facility] 4 10:11:19 Gout 55293211 Active 2022 LETTY fuller [facility] 4 10:11:38 External hordeolu m 7988550 Completed 202203/06/2023 Problem Code: H00.019; Problem Code Type: ICD-10; Not Available [facility] 4 05:37:17 History of right cataract extracti on 323713981 Completed 201406/06/2020 Problem Code: Z98.41; Problem Code Type: ICD-10; Not Available [facility] 3 05:17:27 Hypervol emia 89284066 Completed 201506/07/2016 Problem Code: E87.70; Problem Code Type: ICD-10; Not Available [facility] 3 05:17:27 Anemia 466234611 Completed 201806/06/2020 Problem Code: D64.9; Problem Code Type: ICD-10; Not Available [facility] 3 05:17:27 Edema 567719083 Completed 202012/11/2021 Problem Code: R60.9; Problem Code Type: ICD-10; Not Available [facility] 3 05:17:27 Impacted cerumen of bilatera l ears 34739050765 91232 Completed 202212/02/2022 Problem Code: H61.23; Problem Code Type: ICD-10; QUINN BAKER [address], [place], [address] , [facility]. 4 12:04:41 Acute pharyngi tis 421389997 Completed 202209/07/2022 Problem Code: J02.9; Problem Code Type: ICD-10; Not Available [facility] 3 05:17:28 Pleuriti c pain 7456096 Completed 202109/02/2022 Problem Code: R07.81; Problem Code Type: ICD-10; Not Available [facility] 3 05:17:29 Allergic contact dermatit is 961711562 Completed 201906/06/2020 Problem Code: L23.9; Problem Code Type: ICD-10; Not Available [facility] 3 05:17:29 Generali zed enlarged lymph nodes 945876343 Completed 201601/29/2023 10/10/19 17 - Comments only [...] R59.1; Problem Code Type: ICD-10; Not Available [facility] 3 05:17:29 Disorder of soft tissue 00623486 Completed 201906/06/2020 Problem Code: M70.90; Problem Code Type: ICD-10; Not Available [facility] 3 05:17:30 Impotenc e Completed Not Available [facility] 3 05:17:30 Pneumoni a 264422267 Completed 201702/17/2018 Problem Code: J18.9; Problem Code Type: ICD-10; Not Available [facility] 3 05:17:30 Chronic kidney disease stage 3 981824252 Completed 201501/29/2023 06/06/19 21 - Comments only - Rolando Moise MD - Stage 3b, so get full renal panel with labs today. Fluid status okay clinical ly today. Working on BP. Not Available [facility] 3 05:17:30 Upper respirat ory tract infectio n caused by Influenz a virus 30393852023 332556 Completed 202209/02/2022 Problem Code: J11.1; Problem Code Type: ICD-10; Not Available [facility] 3 05:17:31 Disorder of skin and/or subcutan eous tissue 48425873 Completed 201706/06/2020 Problem Code: L98.9; Problem Code Type: ICD-10; Not Available [facility] 3 05:17:31 Cough 97928322 Completed 202209/07/2022 Problem Code: R05.8; Problem Code Type: ICD-10; Not Available [facility] 3 05:17:31 Chest pain 98220184 Completed 202112/11/2021 Problem Code: R07.9; Problem Code Type: ICD-10; Not Available [facility] 3 05:17:32 Primary gout 60249789 Completed 202201/29/2023 Problem Code: M10.00; Problem Code Type: ICD-10; Not Available [facility] 3 05:17:32 Hypercho lesterol emia 75279442 Completed 199601/29/2023 Not Available [facility] 3 05:17:32 Diabetes mellitus 50639474 Completed 200501/29/2023 Not Available [facility] 3 05:17:33 Pain of left shoulder joint 30571353714 113146 Completed 202102/18/2022 Problem Code: M25.512; Problem Code Type: ICD-10; Not Available [facility] 3 05:17:33 Localize d edema 707466018 Completed 201901/11/2020 Problem Code: R60.0; Problem Code Type: ICD-10; Not Available [facility] 3 05:17:33 Eczema 70107878 Completed 202001/29/2023 Problem Code: L30.9; Problem Code Type: ICD-10; Not Available [facility] 3 05:17:34 Prepatel lar bursitis of left knee 96562627879 9103 Completed 202201/29/2023 07/30/19 23 - Comments [...] M70.42; Problem Code Type: ICD-10; Not Available [facility] 3 05:17:34 Hyperten sive disorder 32116407 Completed 200602/06/2016 Not Available [facility] 3 05:17:35 Thoracic aortic aneurysm without rupture 82994793 Active 2022 LETTY fuller, [facility] 4 10:12:28 Ganglion cyst of right hand 74138921693 9107 Active 2022 LETTY fuller, [facility] 4 10:11:27 Recurren t falls 105324610 Active [address], [place], [address] , [facility] 4 08:14:47 Aneurysm of thoracic aorta 380497118 Active [address], [place], [address] , [facility] 4 08:15:13 Impacted cerumen of bilatera l ears 41989769495 37758 Active 2023 Problem Code: H61.23; Problem Code Type: ICD-10; [address], [place], [address] , [facility] 4 12:04:41 Bursitis of olecrano n of left elbow 08311925591 9101 Active [address], [place], [address] , [facility]. 4 12:40:14 Trigger finger of left hand 70385824284 141749 Active 2023 QUINN BAKER [address], [place], [address] , [facility] 4 12:43:16 Unsteady when walking 34736641 Active [address], [place], [address] , [facility] 4 15:37:59 Pain of left knee joint 75575777443 4107 Active 2023 JAYCEE STANLEY PA-C [address], [place], [address] , [facility] 4 14:05:19 Trigger thumb of left hand 95736252959 9107 Active [address], [place], [address] , [facility] 14:30:58 Acute gout 329839380 Active 2023 LEONA BERRIOS [address], [place], [address] , [facility]. 4 12:58:04 Acute low back pain 473910665 Active [address], [place], [address] , [facility]. 4 10:01:35 Spinal stenosis of lumbar region 24896102 Active [address], [place], [address] , [facility]. 4 11:45:12 Pain in testicle 68326808 Active [address], [facility] [address] , [facility] 4 12:13:30 Degenera tive lumbar spinal stenosis 151643459 Active 2023 Zeynep Bello jonny, [facility] 4 11:05:52 Low blood pressure 08252088 Active [address], [facility] [address] , [facility] 4 09:42:36 Notes:*Problem Name: Hyperch [...] Time Cerumen Removal completed [address], [place], [address], [facility] 09/25/2023 12:46:11 Imaging Results None recorded. Procedure Notes None recorded. Medical Equipment None Reported. Allergies Allergen ID Allergen Name Allergen Category Reaction Reaction Severity Criticality Documentation Date Start Date Code Code System Note Provider Name and Address Organization Details Recorded Time neomycin sulfate medicatio n rash moderate Not available 03/14/20232019 7300 RxNorm [address] RN [facility], [facility] 13:20:31 Medications Name Sig Start Date [...] 2023 active Dose lowered while at [facility] Not Available Not Available Not Available cyanocoba [...] to affected area on scalp 12/22 completed [facility] Not Available Not Available Not Available [...] to affected area twice a day with tia borrero, to tip of penis 11/03 completed Not Available Not Available Not Available furosemid e 20 mg tablet Take 1 tab by mouth once daily for fluid 02/12 completed Not Available Not Available Not Available gabapenti n 100 mg capsule Take 1 capsule 3 times a day by oral route for 14 days. 2023 active prescrib ed by [facility] Not Available Not Available Not [...] Insulin Syringe 0.3 mL 31 gauge x /16 Use 1 syringe as directed five times [...] Last Updated DateTime 170.69 cm 29.8 kg/m2 63474.5 8 g 98.2 [degF] 74 /min 14 /min 108 mm[Hg] 62 mm[Hg] KURT RIVAS RN [facility] 12:32:41 Social History Question Answer Notes LastModified by Organizat ion Details LastModified Time Tobacco Smoking Status Former Smoker Quit 2009 KURT RIVAS RN null, [facility] 12/05/2023 12:30:15 When Did You [...] Recorded Time Tdap 10/26/2019 completed Not Available [facility] 05:31:57 Influenza, high-dose, trivalent, PF 04/16/2019 completed Not Available [facility] 03/14/2023 05:31:57 Td(adult) unspecified formulation 10/09/2009 completed Not Available [facility] 03/14/2023 05:31:57 Td(adult) unspecified formulation 03/10/1998 completed Not Available [facility] 03/14/2023 05:31:57 Influenza, split virus, trivalent, preservative 01/20/2015 completed Not Available [facility] 03/14/2023 05:31:57 Influenza, split virus, trivalent, preservative 03/22/2016 completed Not Available [facility] 03/14/2023 05:31:57 Pneumococcal Conjugate, unspecified formulation 02/03/2017 completed Not Available [facility] 03/14/2023 05:31:57 Influenza, high-dose, quadrivalent, PF 02/02/2020 completed Not Available [facility] 03/14/2023 05:31:57 Influenza, high-dose, quadrivalent, PF 02/01/2021 completed Not Available [facility] 03/14/2023 05:31:57 Influenza, high-dose, quadrivalent, PF 02/18/2022 completed Not Available [facility] 03/14/2023 05:31:57 COVID-19, mRNA, LNP-S, PF, 100 mcg/0.5mL dose or 50 mcg/0.25mL dose 06/15/2020 completed Not Available [facility] 03/14/2023 05:31:57 COVID-19, mRNA, LNP-S, PF, 100 mcg/0.5mL dose or 50 mcg/0.25mL dose 07/14/2020 completed Not Available [facility] 03/14/2023 05:31:57 COVID-19, mRNA, LNP-S, PF, 100 mcg/0.5mL dose or 50 mcg/0.25mL dose 09/13/2021 completed Not Available [facility] 03/14/2023 05:31:58 SARS-COV-2 (COVID-19) vaccine, UNSPECIFIED 03/03/2021 completed Not Available [facility] 03/14/2023 05:31:58 COVID-19, mRNA, LNP-S, bivalent, PF, 30 mcg/0.3 mL dose 02/18/2022 completed Not Available [facility] 03/14/20 05:31:58 pneumococcal polysaccharide PPV23 03/23/2002 completed Not Available [facility] 2022 05:31:58 Hep B, unspecified formulation 07/25/2010 completed Not Available [facility] 03/14/2023 05:31:58 Hep B, unspecified formulation 01/29/2010 completed Not Available [facility] 03/14/2023 05:31:58 Hep B, unspecified formulation 02/27/2010 completed Not Available [facility] 03/14/2023 05:31:58 Hep A, unspecified formulation 07/25/2010 completed Not Available [facility] 03/14/2023 05:31:58 Hep A, unspecified formulation 01/29/2010 completed Not Available [facility] 03/14/2023 05:31:58 influenza, unspecified formulation 02/03/2017 completed Not Available [facility] 03/14/2023 05:31:58 influenza, unspecified formulation 02/05/2011 completed Not Available [facility] 03/14/2023 05:31:58 influenza, unspecified formulation 02/11/2012 completed Not Available [facility] 03/14/2023 05:31:58 influenza, unspecified formulation 02/22/2014 completed Not Available [facility] 03/14/2023 05:31:58 Influenza, high-dose, quadrivalent, PF 03/06/2023 completed Not Available [facility] 05/16/2023 05:31:30 COVID-19, mRNA, LNP-S, PF, bushra-sucrose, 30 mcg/0.3 mL 03/06/2023 completed Not Available [facility] 05/16/2023 05:31:30 Past Encounters Encounter ID Performer Location Encounter Start Date Encounter Closed Date Diagnosis/Indication Diagnosis SNOMED-CT Code Diagnosis ICD10 Code [id number] QUINN BAKER [facility] [address] [place] [address] 11/11/2023 13:33:59 11/11/2023 14:41:43 Type 2 diabetes mellitus without complication 830293988 E11.9 Gout 04587363 M10.9 Trigger th umb of left hand 3294738986 56645 M65.991 [id number] LEONA BERRIOS [facility] [address] [place] [address] 12/05/2023 11:51:55 12/05/2023 13:07:38 Gout 70160551 M10.9 Acute gout 116713640 M10 .9 Health Concerns Section Related Observation LastModified by Organization Detrachel ls LastModified Time None Recorded Concern Status LastModified by Organization Details LastModified Time None Recorded Payers Encounter Date Sequence Insurance Name Policy Number Policy Stewart Covered Member ID Stewart Member ID Guarantor Name 12/05/2023 1 [facility] [employer] (MEDICARE REPLACEMENT/A DVANTAGE - PPO) [id number] Cesar Thompson [id number] Cesar Thompson Notes Date Note Type Note Provider Name and Address Organization Details Recorded Time 12/05/2023 text/html HPI Notes: Miek burt is an 88-year-old male patient of Rol[facility] Wright is here today for an acute visit. caregiver Montse states Cesar has (R) knee pain/edema for past 3 days or so. Limping and difficulty with balance due to swelling, pain and stiffness. Hard to bend knee or straighten knee. Says it feels tight. . Montse says this same thing happened with left knee about 2 months ago. Was seen initially at the medical center on 10/09/2023 for pain of left [...] no redness. LEONA BERRIOS [address], [place], [id number], [facility]. 12/07/2023 00:37:49
--- OUTSIDE RECORDS SUMMARY | 2024-01-25 13:46 | XMS_ITS | Continuity of Care Document ---
Author Organization [facility], [facility] [place] [address] Assessment No assessment recorded. Plan of Treatment Reminders Order Date Submit Date Provider Last Modified By Organization Details Last Modified Time Details Appointments Nurse Visit 20 2023 11:30A M Not available Not available Not available Lab ESR (erythroc yte sedimenta tion rate), blood - 1 SST, 1 LAV 2023 024 [email or web address] (Registration ), [address] [place] [address] [place], [address], 12/10/2023 07:22:52 uric acid, serum or plasma 2023 024 [email or web address] (Registration ), [address] [place] [address] [place], [address], 11/18/2023 07:13:59 Referral None recorded. Procedures None recorded. Surgeries None recorded. Imaging None recorded. Medication Orders None recorded. Patient TargetsNo targets recorded. Patient InstructionsNo instructions recorded. Reason for Referral Senior Teradata Developer Referral for ronic kidney disease stage 4 87 yo active male with DM, aFib, stage 4 CKD that is progressing Referring Physician: Rolando Moise, Family Medicine, Encounter Date: 06/05/2023 Vascular Surgeon Referral fo r Abdominal aortic aneurysm without rupture 87 yo M with stage 4 CKD, h/o EVAR, recent non-enhanced CT at [facility] ED 05/17/22 after presenting with back pain showing widened sac in area of aneurysm, recommended contrast study for endoleak. Also thoracic aneurysm. Please direct imaging modality, further evaluation (MRA not approved by insurance). Referring Physician: Rolando Moise [facility], Encounter Date: 06/13/2023 Orthopedic Surgeon Referral for Trigger finger of left hand Left thumb trigger finger bothering pt and he is requesting consult for possible surgical intervention. For scheduling, All appointments should be made through Cb caregiver, Montse. Her phone number is Referring Physician: aMximino Lucero, [facility], Encounter Date: 09/25/2023 Orthopedic Surgeon Referral for [...] from urgent care. Referring Physician: Maximino Lucero [facility], Encounter Date: 10/13/2023 Physical Therapist Referral for Acute low back pain Referring Physician: Maximino Lucero [facility], Encounter Date: 12/26/2023 Results Created Date Observation Date Name Description Value Unit Range Abnormal Flag Note LastModifiedBy Organization Detail LastModifiedTime 12/21/19 24 12/21/2023 vrad repor t Patien t Name: Terrence Thompson Mamie Unit #: [id number] Loc: ER Orderi ng Provid er: Accoun t #: [id number] Status : REG ER Primar y [...] of the lower lumbar spine. At L1-L2, Recoater ior osteop hyte disc comple x at L1-L2 with mild bony canal stenos is. At L2-L3, bilate ral facet joint arthro paulo no signif icant thecal sac compre ssion or neural narrow ing. At L3-L4, senior information security analyst ior osteop hyte disc comple x with bilate ral facet joint arthro paulo causin g severe thecal sac compre ssion and severe narrow ing of both neural forami na. At L4-L5: Recoater ior osteop hyte disc comple x with bilate ral facet joint arthro paulo and ligame ntum flavum hypert rophy causin g severe thecal sac compre ssion and severe narrow ing both neural forami na. At L5-S1, senior information security analyst ior osteop hyte disc comple x causin [...] Omer. Orderi ng:Robby Perera MD Access ion#=[id number] Adelaida balbuena By: CC: ------ ------ ------ ------ ------ ------ ------ ------ ------ ------ ------ ------ ---- Dictat ed By: Report s vrad [id number] Transc ribed By: Di Merge 0920 This is privil eged, confid [...] at the addres s above. Thank- you. [email or web address] [address], [place], [address] 12/22/2023 07:34:46 12/21/19 24 12/21/2023 vrad repor t Patien t Name: Terrence Thompson Unit #: [id number] Loc: ER Orderi ng Provid er: Accoun t #: [id number] Status : REG ER Primar y [...] Omer. Orderi ng:Robby Perera MD Access ion#=[id number] Ordere d By: CC: ------ ------ [...] error, please notify us immedi berhanely at [phone] and return the origin al report to us at the addres s above. Thank- you. [email or web address] [address] [place], [address] 12/22/2023 07:34:47 12/21/19 24 12/21/2023 CT imagi ng repor t Patien t Name: Terrence Thompson Unit #: [id number] Loc: ER Orderi ng Provid er: Aretha henao,Marie n QUINN Accxiomara t #: [id number] Status : REG ER Primar [...] ZATION : [facility] one of these [...] error, please notify us immedi ately at [phone] and return the origin al report to us at the addres s above. Thank- you. [email or web address] [address], [address] 12/22/2023 07:34:47 12/21/1912/21/2023 CT imagi ng repor t Patien t Name: Terrence Thompson Unit #: [id number] Loc: ER Orderi ng Provid er: Marie Austin Accoun t #: [id number] Status : REG ER Primar [...] 2023 FINDIN GS: ABDOME N: Lung Bases: Stepehns ry artery calcif icatio ns are presen [...] Index Regist ry (DIR) with the [place] [employer] [employer] of Radiol ogy (ACR). RADIAT ION [...] DLP = 0.00 mGy-cm Ordere d By: BorMarie doe CC: ------ ------ ------ ------ ------ ------ [...] at the addres s above. Thank- you. [address], [place], [address] 12/26/2023 09:17:16 12/24/19 24 12/24/2023 x-ray imagi ng repor t Patitj t Name: Terrence Thompson Unit #: [id number] Loc: ER Orderi ng Provid er: Riya Garza M.D. Accoun t #: [id number] Status : REG ER Primar y [...] at the addres s above. Thank- you. [email or web address] [address], [place], [address] 12/24/2023 18:07:26 12/24/19 24 12/24/2023 CT imagi ng yulissa t Anisa t Name: Terrence Thompson Unit #: [id number] Loc: ER Orderi ng Provid er: Riya Garza M.D. Accoun t #: [id number] Status : REG ER Primar y Care Provid er: Alexi Lucero Date of Exam: 12/04 05/28 Sex: M : 1935 Age: 88 Exam(s ) a CT:CT abdome n pelvis wo Exam(s ) CT ABDOME N PELVIS WO EXAM: CT ABDOME N PELVIS WO CLINIC AL HISTOR Y: abd pain back pain. TECHNI QUE: Eloinain g Protoc ol: Axial comput ed tomogr [...] facili ty are submit sheri to the [facility] al Radiol ogy Data Regist ry [...] error, please notify us immedi ately at [phone] and return the origin al report to us at the addres s above. Thank- you. [email or web address] [address], [address] 12/24/2023 18:07:26 12/28/19 24 12/28/2023 vrad repor t Patien t Name: ThompsonTerrence bibi Balbuena Unit #: [id number] Loc: ER Orderi ng Provid er: Accoun t #: [id number] Status : REG ER Primar y Care Provid er: Jazmine, Jonath an Date of Exam: 12/04 09/25 Sex: M [...] ticate d by: Shu Gong MD. Orderi ng:P.Riya Shaikh MD Access ion#=1 [id number] Ordere d By: CC: ------ ------ ------ ------ ------ ------ ------ ------ ------ ------ ------ ------ ---- Dictat ed By: Report s vrad [id number] [id number] Transc ribed By: Irene Spain 08/25/ 24 0750 This is privil eged, confid ential inform ation intend ed only for the provid er named. Any use or distri bution by any person other than this provid er is strict ly prohib ited. If you receiv e this report in error, please notify us immedi kyara at [phone] and return the origin al report to us at the addres s above. Thank- you. [email or web address] [address], [place], [address] 12/29/2023 07:26:06 12/28/19 24 12/28/2023 ultra sound imagi ng repor t Patien t Name: Terrence Thompson Unit #: [id number] Loc: ER Orderi ng Provid er: Sirisha Lawson M.D. t #: [id number] Status : REG ER Primar y [...] error, please notify us immedi berhanely at [phone] and return the origin al report to us at the addres s above. Thank- you. [address], [address] 12/29/2023 07:26:06 01/08/20 24 01/08/2024 vrad repor t Anisa t Name: Terrence Thompson Unit #: [id number] Loc: ER Orderi ng Provid er: Accoun t #: [id number] Status : REG ER Primar y Care Provid er: Salina Lucerojaquelinmarkel josé manuel Date of Exam: 09/25 Sex: M : [...] ticate d by: Jade Velasco MD. Jolie bravo:PPolly friedman MD Access ion#=[id number] Ordere d By: CC: ------ ------ [...] error, please notify us immedi ately at [phone] and return the origin al report to us at the addres s above. Thank- you. [email or web address] [place] [id number], [address] 01/08/2024 10:02:38 01/08/20 24 01/08/2024 x-ray gerardo bravo repor t Patien t Name: Terrence Thompson Unit #: [id number] Loc: JUAN C bravo Provid er: Florecita Cole M.D. Accoun t #: [id number] Status : [facility] ER Primar y [facility] er: Alexi Lucero Date of Exam: 09/25 [...] bution by any person other than this [facility] er is strict ly prohib ited. If you receiv e this report in error, please notify us immedi ately at and return the origin al report to us at the addres s above. Thank- you. [email or web address] [address] [place], [address] 01/08/2024 14:15:50 01/19/20 24 11/07/2020 imagi ng/irene stein resul t No observ ation record ed. [...] Organization Details Recorded Time Erectile dysfunct ion 709521753 Active 1959 LETTY HOFFMAN [facility] 4 10:11:06 Hyperlip idemia 14370356 Active 2004 LETTY HOFFMAN [facility] 4 10:11:57 Type 2 diabetes mellitus without complica tion 353691158 [facility] 4 10:12:37 Steatosi s of liver 266034241 Active 2009 [facility] 4 10:12:23 Abdomina l aortic aneurysm without rupture 03104602 Active 2009 [facility] 4 10:09:38 Benign prostati c hyperpla gregory 211124910 Active 2014 LETTY HOFFMAN [facility] 4 10:10:32 Hernia of anterior abdomina l wall 405119395 Active 2014 [facility] 4 10:11:52 Phimosis 039230956 Active 2015 [facility] 4 10:12:18 Dysthymi a 35994477 [facility] 4 10:11:01 Essentia l hyperten emerson 03003183 Active 2015 [facility] 4 10:11:13 Chronic kidney disease stage 4 473659629 Active 2015 [facility] 4 10:10:38 Low back pain 541989630 Active 2015 [place] [facility] 4 10:12:09 Nicotine dependen ce 59772100 Active 2015 [facility] 4 10:12:13 Disorder of salivary gland 80132438 Active 2016 [facility] 4 10:10:56 Digestiv e system disease screenin g Completed 201610/10/2016 Problem Code: Z13.818; Problem Code Type: ICD-10; Not Available [facility] 3 05:17:20 Atherosc lerosis of coronary artery without angina pectoris 03457417820 4103 Active 2016 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 He can stop doxyclin e as he has felt better for the past 48 hours. Problem Code: J40; Problem Code Type: ICD-10; Not Available [facility] 3 05:17:21 Hypomagn esemia 952693330 Completed 201803/06/2023 Problem Code: E83.42; Problem Code Type: ICD-10; Not Available [facility] 4 05:37:17 Colostom y present 541506558 Active 2018 LETTY HOFFMAN jonny, [facility] 4 10:10:45 Heart failure 58827634 Active 2019 LETTY HOFFMAN jonny, [facility]. 4 10:11:48 Hearing loss 04006821 Active 2019 LETTY HOFFMAN jonny, [facility], [facility]. 4 10:11:44 Balaniti s 91354147 Active 2020 LETTY HOFFMAN jonny, [facility], [facility]. 4 10:10:27 Atrial flutter 0134894 Active 2020 LETTY [place] jonny, [facility], [facility]. 4 10:10:23 Transien t acanthol ytic dermatos is 67308746 Active 2020 LETTY HOFFMAN jonny, [facility] 4 10:12:32 Intersti tial lung disease 335212207 Active 2021 LETTY HOFFMAN jonny, [facility] 4 10:12:04 Internal hordeolu m 204187259 Completed 202206/05/2022 Problem Code: H00.029; Problem Code Type: ICD-10; Not Available [facility] 3 05:17:22 Essentia l tremor 001509282 Active 2022 LETTY HOFFMAN null, [facility] 4 10:11:19 Gout 09160298 Active 2022 LETTY HOFFMAN null, [facility]. 4 10:11:38 External hordeolu m 1982416 Completed 202203/06/2023 Problem Code: H00.019; Problem Code Type: ICD-10; Not Available [facility] 4 05:37:17 History of right cataract extracti on 179130385 Completed 201406/06/2020 Problem Code: Z98.41; Problem Code Type: ICD-10; Not Available [facility] 3 05:17:27 Hypervol emia 29995408 Completed 201506/07/2016 Problem Code: E87.70; Problem Code Type: ICD-10; Not Available [facility] 3 05:17:27 Anemia 141174184 Completed 201806/06/2020 Problem Code: D64.9; Problem Code Type: ICD-10; Not Available [facility] 3 05:17:27 Edema 770990374 Completed 202012/11/2021 Problem Code: R60.9; Problem Code Type: ICD-10; Not Available [facility] 3 05:17:27 Impacted cerumen of bilatera l ears 00938769394 69476 Completed 202212/02/2022 Problem Code: H61.23; Problem Code Type: ICD-10; QUINN BAKER [address], [place], [address] , [facility], [facility]. 4 12:04:41 Acute pharyngi tis 198126224 Completed 202209/07/2022 Problem Code: J02.9; Problem Code Type: ICD-10; Not Available [facility] 3 05:17:28 Pleuriti c pain 0776383 Completed 202109/02/2022 Problem Code: R07.81; Problem Code Type: ICD-10; Not Available [facility] 3 05:17:29 Allergic contact dermatit is 031953477 Completed 201906/06/2020 Problem Code: L23.9; Problem Code Type: ICD-10; Not Available [facility] 3 05:17:29 Generali zed enlarged lymph nodes 658655521 Completed 201601/29/2023 10/10/19 17 - Comments only [...] R59.1; Problem Code Type: ICD-10; Not Available [facility] 3 05:17:29 Disorder of soft tissue 69685011 Completed 201906/06/2020 Problem Code: M70.90; Problem Code Type: ICD-10; Not Available [facility] 3 05:17:30 Impotenc e Completed Not Available [facility] 3 05:17:30 Pneumoni a 464161822 Completed 201702/17/2018 Problem Code: J18.9; Problem Code Type: ICD-10; Not Available [facility] 3 05:17:30 Chronic kidney disease stage 3 151986248 Completed 201501/29/2023 06/06/19 21 - Comments only - Rolando Moise MD - Stage 3b, so get full renal panel with labs today. Fluid status okay clinical ly today. Working on BP. Not Available [facility] 3 05:17:30 Upper respirat ory tract infectio n caused by Influenz a virus 39112778814 340234 Completed 202209/02/2022 Problem Code: J11.1; Problem Code Type: ICD-10; Not Available [facility] 3 05:17:31 Disorder of skin and/or subcutan eous tissue 19358527 Completed 201706/06/2020 Problem Code: L98.9; Problem Code Type: ICD-10; Not Available [facility] 3 05:17:31 Cough 38775662 Completed 202209/07/2022 Problem Code: R05.8; Problem Code Type: ICD-10; Not Available [facility] 3 05:17:31 Chest pain 25223152 Completed 202112/11/2021 Problem Code: R07.9; Problem Code Type: ICD-10; Not Available [facility] 3 05:17:32 Primary gout 60349045 Completed 202201/29/2023 Problem Code: M10.00; Problem Code Type: ICD-10; Not Available [facility] 3 05:17:32 Hypercho lesterol emia 82927408 Completed 199601/29/2023 Not Available [facility] 3 05:17:32 Diabetes mellitus 05441666 Completed 200501/29/2023 Not Available [facility] 3 05:17:33 Pain of left shoulder joint 95472809425 575600 Completed 202102/18/2022 Problem Code: M25.512; Problem Code Type: ICD-10; Not Available [facility] 3 05:17:33 Localize d edema 667445213 Completed 201901/11/2020 Problem Code: R60.0; Problem Code Type: ICD-10; Not Available [facility] 3 05:17:33 Eczema 62120985 Completed 202001/29/2023 Problem Code: L30.9; Problem Code Type: ICD-10; Not Available [facility] 3 05:17:34 Prepatel lar bursitis of left knee 49666502232 9103 Completed 202201/29/2023 07/30/19 23 - Comments [...] M70.42; Problem Code Type: ICD-10; Not Available [facility] 3 05:17:34 Hyperten sive disorder 41192837 Completed 200602/06/2016 Not Available [facility] 3 05:17:35 Thoracic aortic aneurysm without rupture 11803523 Active 2022 LETTY fuller, [facility] 4 10:12:28 Ganglion cyst of right hand 19151438925 9107 Active 2022 LETTY fuller, [facility] 4 10:11:27 Recurren t falls 499053071 Active [address], [facility] [address] , [facility] 4 08:14:47 Aneurysm of thoracic aorta 512890709 Active [address], [facility] [address] , [facility] 4 08:15:13 Impacted cerumen of bilatera l ears 34086467692 85682 Active 2023 Problem Code: H61.23; Problem Code Type: ICD-10; [address], [facility] [address] , [facility] 4 12:04:41 Bursitis of olecrano n of left elbow 66148397486 9101 Active [address], [facility] [address] , [facility] 4 12:40:14 Trigger finger of left hand 50379978692 708763 Active [address], [facility] [address] , [facility] 4 12:43:16 Unsteady when walking 90139747 Active 2023 QUINN BAKER [address], [place], [address] , [facility] 4 15:37:59 Pain of left knee joint 09145715367 4107 Active 2023 JAYCEE STANLEY PA-C [address], [facility] [address] , [facility] 14:05:19 Trigger thumb of left hand 56735913321 9107 Active 2023 QUINN BAKER [address], [facility] [address] , [facility] 14:30:58 Acute gout 860605129 Active 2023 LEONA BERRIOS [address], [facility] [address] , [facility] 12:58:04 Acute low back pain 970415115 Active 2023 QUINN BAKER [address], [facility] [address] , [facility] 10:01:35 Spinal stenosis of lumbar region 72484290 Active [address], [facility] [address] , [facility] 11:45:12 Pain in testicle 43248303 Active [address], [facility] [address] , [facility] 12:13:30 Degenera tive lumbar spinal stenosis 699384403 Active 2023 Zeynep fuller, [facility] 11:05:52 Low blood pressure 91571018 Active [address], [place], [address] , [facility] 09:42:36 Notes:*Problem Name: Hyperch olesterolem *ICD-10 Codes: [...] 4 Cerumen Removal completed [address], [place], [address], [facility] 09/25/2023 12:46:11 Imaging Results None recorded. Procedure Notes None recorded. Medical Equipment None Reported. Allergies Allergen ID Allergen Name Allergen Category Reaction Reaction Severity Criticality Documentation Date Start Date Code Code System Note Provider Name and Address Organization Details Recorded Time neomycin sulfate medicatio n rash moderate Not available 03/14/20232019 7300 RxNorm Stephy Nicole RN [facility], [place] - [facility]. 13:20:31 Medications Name Sig Start Date [...] morning. 2023 active Dose lowered while at [facility] Not Available Not Available Not Available cyanocoba [...] to affected area on scalp 12/22 completed [facility] Not Available Not Available Not [...] days. 2023 active prescrib ed by [facility] Not Available Not Available Not [...] Not Available Not Available Not Avai lablizbeth Januvia 25 mg tablet Take 1 tablet [...] Not Available Not Available Not Jae randle oseltamiv ir 30 mg capsule Take 1 [...] Details Last Updated DateTime 4 170.69 cm 30.6 kg/m2 43885.5 4 g 98.1 [degF] 98 % 98 % 68 /min 106 mm[Hg] 62 mm[Hg] MARK WILLSON MA [facility] 4 13:41:08 Social History Question Answer Notes LastModified by Organizat ion Details LastModified Time Tobacco Smoking Status Former Smoker Quit 2009 KURT RIVAS RN null, [facility] 12/05/2023 12:30:15 When Did You Quit Smoking? 16+yearssince [email or web address] [email or web address] Information not available 12/05/2023 How Often Does [...] Recorded Time Tdap 10/26/2019 completed Not Available [facility] 05:31:57 Influenza, high-dose, trivalent, PF 04/16/2019 completed Not Available [facility] 03/14/2023 05:31:57 Td(adult) unspecified formulation 10/09/2009 completed Not Available [facility] 03/14/2023 05:31:57 Td(adult) unspecified formulation 03/10/1998 completed Not Available [facility] 03/14/2023 05:31:57 Influenza, split virus, trivalent, preservative 01/20/2015 completed Not Available [facility] 03/14/2023 05:31:57 Influenza, split virus, trivalent, preservative 03/22/2016 completed Not Available [facility] 03/14/2023 05:31:57 Pneumococcal Conjugate, unspecified formulation 02/03/2017 completed Not Available [facility] 03/14/2023 05:31:57 Influenza, high-dose, quadrivalent, PF 02/02/2020 completed [facility] Available [facility] 03/14/2023 05:31:57 Influenza, high-dose, quadrivalent, PF 02/01/2021 completed Not Available [facility] 03/14/2023 05:31:57 Influenza, high-dose, quadrivalent, PF 02/18/2022 completed Not Available [facility] 03/14/2023 05:31:57 COVID-19, mRNA, LNP-S, PF, 100 mcg/0.5mL dose or 50 mcg/0.25mL dose 06/15/2020 completed Not Available [facility] 03/14/2023 05:31:57 COVID-19, mRNA, LNP-S, PF, 100 mcg/0.5mL dose or 50 mcg/0.25mL dose 07/14/2020 completed Not Available [facility] 03/14/2023 05:31:57 COVID-19, mRNA, LNP-S, PF, 100 mcg/0.5mL dose or 50 mcg/0.25mL dose 09/13/2021 completed Not Available [facility] 03/14/2023 05:31:58 SARS-COV-2 (COVID-19) vaccine, UNSPECIFIED 03/03/2021 completed Not Available [facility] 03/14/2023 05:31:58 COVID-19, mRNA, LNP-S, bivalent, PF, 30 mcg/0.3 mL dose 02/18/2022 completed Not Available [facility] 03/14/20 05:31:58 pneumococcal polysaccharide PPV23 03/23/2002 completed Not Available [facility] 2022 05:31:58 Hep B, unspecified formulation 07/25/2010 completed Not Available [facility] 03/14/2023 05:31:58 Hep B, unspecified formulation 01/29/2010 completed Not Available [facility] 03/14/2023 05:31:58 Hep B, unspecified formulation 02/27/2010 completed Not Available [facility] 03/14/2023 05:31:58 Hep A, unspecified formulation 07/25/2010 completed Not Available [facility] 03/14/2023 05:31:58 Hep A, unspecified formulation 01/29/2010 completed Not Available [facility] 03/14/2023 05:31:58 influenza, unspecified formulation 02/03/2017 completed Not Available [facility] 03/14/2023 05:31:58 influenza, unspecified formulation 02/05/2011 completed Not Available [facility] 03/14/2023 05:31:58 influenza, unspecified formulation 02/11/2012 completed Not Available [facility] 03/14/2023 05:31:58 influenza, unspecified formulation 02/22/2014 completed Not Available [facility] 03/14/2023 05:31:58 Influenza, high-dose, quadrivalent, PF 03/06/2023 completed Not Available [facility] 05/16/2023 05:31:30 COVID-19, mRNA, LNP-S, PF, bushra-sucrose, 30 mcg/0.3 mL 03/06/2023 completed Not Available [facility] 05/16/2023 05:31:30 Past Encounters Encounter ID Performer Location Encounter Start Date Encounter Closed Date Diagnosis/Indication Diagnosis SNOMED-CT Code Diagnosis ICD10 Code [id number] [facility] [address] [place] [address] 10/13/2023 08:40:55 10/13/2023 10:50:17 Pain of left knee joint 2396083012 32239 M25.562 Chronic ki dney disease stage 4 737272689 N18.4 Essential hypertension 75655868 I10 [id number] QUINN BAKER [facility] [address] [place] [address] 11/11/2023 13:33:59 11/11/2023 14:41:43 Type 2 diabetes mellitus without complication 702695949 E11.9 Gout 65595100 M10.9 Trigger th umb of left hand [id number] 85985 M65.312 Health Concerns Section Related Observation LastModified by Organization Detai ls LastModified Time None Recorded Concern Status LastModified by Organization Details LastModified Time None Recorded Payers Encounter Date Sequence Insurance Name Policy Number Policy Stewart Covered Member ID Stewart Member ID Guarantor Name 11/11/2023 1 [facility] (MEDICARE REPLACEMENT/A DVANTAGE - PPO) [id number] Cesar Thompson [id number] Cesar Thompson Notes Date Note Type Note Provider Name and Address Organization Details Recorded Time 11/11/2023 text/html HPI Notes: Pt, 9 6-M, here to f/u about left knee pain caused by gout. Pt. had non traumatic, acute left knee pain develop several weeks ago. After incomplete response to prednisone, the pt. was Rx'd methylprednisolone to be taken until resolution of symptoms, his uric acid was in the high 9's. Pt. reports today his left knee is completely better, without pain, without warmth and also that he did not supervisor opening and picking the methylprednisolone. Trigger Finger: Pt. already seen by Dr. Lerma 10/14/2023 and unsure of what next steps were. QUINN BAKER [address], [place], [address], [facility]. 11/12/2023 05:52:10
--- NOTE | 2024-01-25 14:01 | ED.GENADUL_ITS ---
Discharge Plan Disposition Patient Disposition: Home Condition: Improving Discharge Details Clinical Impression: Back pain Primary Care Provider: Maximino Lucero ED Provider: Berry Aggarwal Home Meds and New Rx's Prescriptions: New cyclobenzaprine 5 mg tablet 5 mg PO QHS PRN (Reason: muscle spasm) Qty: 10 0RF No Action tamsulosin 0.4 mg capsule 0.4 mg PO DAILY amlodipine 2.5 mg tablet 2.5 mg PO DAILY allopurinol 100 mg tablet 100 mg PO .every other day insulin glargine 100 unit/mL solution 5 unit subcut QPM sitagliptin 50 mg tablet 50 mg PO DAILY magnesium oxide 400 mg magnesium capsule 400 mg PO BID Patient Comments: pt. reports he has been out of it nitroglycerin [Nitrostat] 0.4 mg tablet, sublingual 0.4 mg sublingual Q5 MIN PRN X3 PRN Rx Instructions: as a single dose; administer 5-10 minutes before situation known to precip itate angina attack apixaban 2.5 mg tablet 2.5 mg PO BID Patient Comments: 11/27/20 started at [facility] due to elevated creatinine 2.4 RH alogliptin 6.25 mg tablet 6.25 mg PO DAILY calcitriol 0.25 mcg capsule 0.25 mcg PO DAILY cholecalciferol (vitamin D3) 25 mcg (1,000 unit) capsule 25 mcg PO DAILY lisinopril 10 mg tablet 10 mg PO DAILY atorvastatin [Lipitor] 40 MG tablet 40 mg PO QPM acetaminophen [Acetaminophen Extra Strength] 500 mg Tablet 1,000 mg PO Q8H PRN cyanocobalamin (vitamin B-12) 1,000 mcg Tablet 1,000 mcg PO DAILY furosemide 40 mg tablet 80 mg PO DAILY albuterol sulfate 90 mcg/actuation HFA aerosol inhaler 2 puff INHALATION ONCE PRN Patient Comments: INHALE TWO PUFFS BY MOUTH EVERY 4 TO 6 HOURS NEEDED metoprolol succinate 50 mg tablet extended release 24 hr 25 mg PO DAILY Qty: 0 0RF Discharge Instructions Instructions: Low Back Pain ED Additional Instructions: Please follow with primary care physician. Please return to the emergency department for any worsening symptoms HPI General Date/Time Provider Initiated Documentation: 01/25/24 13:57 . HPI Narrative: 88-year-old male presents with chronic lower back discomfort rating to his groins bilaterally, endorses recent scrotal ultrasound, denies nausea vomiting diarrhea or constipation, denies falls fevers chills or other systemic signs of illness. Expresses frustration that his home medications are not working to help his lower back discomfort Related Data Home Medications ?Medication ?Instructions ?Recorded ?Confirmed atorvastatin 40 mg tablet (Lipitor) 40 mg PO QPM 09/20/17 01/25/24 magnesium oxide 400 mg PO BID 01/14/20 01/25/24 nitroglycerin 0.4 mg sublingual 0.4 mg sublingual Q5 MIN PRN X3 PRN 01/14/20 01/25/24 tablet (Nitrostat) acetaminophen 500 mg tablet 1,000 mg PO Q8H PRN 02/29/20 01/25/24 (Acetaminophen Extra Strength) cyanocobalamin (vitamin B-12) 1,000 mcg PO DAILY 03/01/20 01/25/24 1,000 mcg tablet tamsulosin 0.4 mg capsule 0.4 mg PO DAILY 11/27/20 01/25/24 apixaban 2.5 mg tablet 2.5 mg PO BID 05/31/21 01/25/24 amlodipine 2.5 mg tablet 2.5 mg PO DAILY 07/11/22 01/25/24 furosemide 40 mg tablet 80 mg PO DAILY swelling 07/11/22 01/25/24 albuterol sulfate 90 mcg/actuation 2 puff inhalation ONCE PRN 05/17/23 01/25/24 aerosol inhaler alogliptin 6.25 mg tablet 6.25 mg PO DAILY 10/07/23 01/25/24 calcitriol 0.25 mcg capsule 0.25 mcg PO DAILY 10/07/23 01/25/24 cholecalciferol (vitamin D3) 25 25 mcg PO DAILY 10/07/23 01/25/24 mcg (1,000 unit) capsule lisinopril 10 mg tablet 10 mg PO DAILY 10/07/23 01/25/24 metoprolol succinate 50 mg 25 mg (1/2 x 50 mg) PO DAILY #0 10/07/23 01/25/24 tablet,extended release 24 hr tabs allopurinol 100 mg tablet 100 mg PO .every other day 01/21/24 01/25/24 insulin glargine 100 unit/mL 5 unit subcut QPM 01/21/24 01/25/24 subcutaneous solution sitagliptin 50 mg tablet 50 mg PO DAILY 01/21/24 01/25/24 cyclobenzaprine 5 mg tablet 5 mg PO QHS PRN muscle spasm #10 01/25/24 tabs Previous Rx's ?Medication ?Instructions ?Recorded metoprolol succinate 50 mg 25 mg (1/2 x 50 mg) PO DAILY #0 10/07/23 tablet,extended release 24 hr tabs cyclobenzaprine 5 mg tablet 5 mg PO QHS PRN muscle spasm #10 01/25/24 tabs Allergies Allergy/AdvReac Type Severity Reaction Status Date / Time adhesive Allergy Severe significant Verified 01/25/24 13:42 skin reaction, swelling, erythema, discomfort neomycin Allergy Unknown Verified 01/25/24 13:42 General Stated Complaint: GenMedical ASTON: 3 Exam Narrative Exam Narrative: Alert oriented interactive Moist mucous membranes tongue secretions Normal voice no stridor Soft supple neck full range of motion Normal respiratory effort speaking full sentences no tachypnea no cyanosis Abdomen soft nontender nondistended Normal external genitalia with bilateral descended testes no palpable mass, no erythema no induration, normal cremasteric reflex normal lie normal rugae Alert oriented 5-5 strength upper and lower extremities bilaterally sensation intact, ambulatory without assistance normal speech no ataxia No midline spinal tenderness step-off crepitus or deformity, most discomfort around SI joint and paraspinal lumbar region without signs of trauma Course Vital Signs Vital signs: Vital Signs Temperature 36.6 C 01/25/24 13:40 Pulse 56 L 01/25/24 13:40 Respiratory Rate 16 01/25/24 13:40 Blood Pressure 128/77 01/25/24 13:40 Pulse Oximetry 98 01/25/24 13:40 Temperature 36.6 C 01/25/24 13:40 Pulse 56 L 01/25/24 13:40 Respiratory Rate 16 01/25/24 13:40 Respiratory Effort Normal 01/25/24 13:43 Blood Pressure 128/77 01/25/24 13:40 Pulse Oximetry 98 01/25/24 13:40 Pain Level 10 01/25/24 13:40 Medical Decision Making 88-year-old male presents with chronic lower back pain rating to groin, hemodynamically stable afebrile nontoxic no midline spinal tenderness above crepitus or deformity, neurologically intact, normal examination, abdomen nonperitoneal, paraspinal lumbar discomfort and pain subjectively and SI region, no neurologic deficits, likely lumbar go versus SI joint arthritis lower suspicion for sciatica, chart review shows scrotal ultrasound last month showing bilateral thrombosed varicoceles. Normal exam today. Will trial anti- inflammatory analgesia muscle relaxant, low suspicion for kidney stone pyelonephritis malignancy bowel obstruction aortic pathology or spinal cord compression. Home care instruction return precautions likely to be given. Patient would likely benefit from PT/OT. 15: 56 feeling much better after medication. Hemodynamically stable resting comfortably ambulatory no acute distress Quality:SDOH Health Related Social Needs: No Data to Display PFSH All Active Problems (Updated 01/25/24 @ 15:56 by Berry Aggarwal MD) Back pain (Acute) Insulin dependent type 2 diabetes mellitus (Acute) CKD (chronic kidney disease) (Chronic) Hypoglycemia (Acute) CAD (coronary artery disease) (Chronic) Bradycardia (Acute) Pain in both testicles (Acute) Varicocele present on ultrasound of scrotum (Acute) Gout of left knee (Acute) Trigger thumb of left hand (Acute) Acute kidney injury superimposed on CKD (Acute) Severe sepsis (Acute) Chronic kidney disease, stage 4 (severe) (Acute) Medication management (Acute) amiodarone for afib EKG Q 12 Months RH HTN (hypertension) (Acute) CAD (coronary artery disease) (Chronic) Dermatitis (Acute) Atrial fibrillation (Chronic) Chest pain (Acute) Acute non-ST elevation myocardial infarction (NSTEMI) (Acute) Wound dehiscence, surgical (Acute) Type 2 diabetes mellitus (Chronic) Fatty liver (Acute) Chronic kidney disease, stage 3 (Chronic) Mass of salivary gland (Acute) Ischemic cardiomyopathy (Chronic) Skin lesion of scalp (Acute) Anemia (Chronic) Hearing impairment (Acute) Medical History HLD (hyperlipidemia) Former smoker Balanitis Atrial flutter Edema Cruz's disease Phimosis (10/17/15) Erectile dysfunction AAA (abdominal aortic aneurysm) Hypomagnesemia CHF (congestive heart failure) Renal insufficiency 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) Diverticulitis of large intestine with abscess Hypercholesterolemia Diabetes mellitus Myocardial infarct Phimosis Surgical History Status post colostomy takedown (~03/01/20) S/P left hemicolectomy (~07/19/18) H/O phimosis s/p repair History of heart artery stent S/P hernia repair History of endovascular stent graft for abdominal aortic aneurysm (AAA) Social History Smoking/Tobacco Use Status: Former Tobacco Use Quit Date: 01/03/17 Tobacco: How many years used: 60 Smoking risk assessment performed?: Yes Alcohol Intake: former Drug use: Never Substance use type: does not use Housing: house Do you feel safe at home: Yes Do you feel safe in your relationship?: Yes
[2024-01-25 14:15] VITALS: RESP 16
[2024-01-25] MEDS: Ketorolac 15 MG/ML VIAL IM (14:15)
[2024-01-25] MEDS: Cyclobenzaprine 10 MG TAB 5 MG PO (14:15)
[2024-01-25 15:39] VITALS: BP 142/79; PULSE 51; RESP 14; TEMP 36.3; O2SAT 95
== END 2024-01-25 16:21 | disposition home or self-care (01) ==
PROVIDERS: Emergency Provider Emergency Medicine; PCP Student in an Organized Health Care Education/Training Program
DX: M54.50 Low back pain, unspecified (principal); R10.2 Pelvic and perineal pain; I13.0 Hypertensive heart and chronic kidney disease with heart failure and stage 1 through stage 4 chronic kidney disease, or unspecified chronic kidney disease; E11.22 Type 2 diabetes mellitus with diabetic chronic kidney disease; N18.4 Chronic kidney disease, stage 4 (severe); I50.9 Heart failure, unspecified; I48.91 Unspecified atrial fibrillation; I25.10 Atherosclerotic heart disease of native coronary artery without angina pectoris; I25.2 Old myocardial infarction; E78.00 Pure hypercholesterolemia, unspecified; Z95.5 Presence of coronary angioplasty implant and graft; Z79.4 Long term (current) use of insulin; Z79.01 Long term (current) use of anticoagulants; Z87.891 Personal history of nicotine dependence
CPT/HCPCS: 96372; 99284; 99283; J1885

== ENCOUNTER 2024-01-28 07:25 | Emergency (ER) | payer MEDICARE, SELFPAY ==
[2024-01-28] VITALS (51 sets, daily range): BP systolic 143–187; BP diastolic 60–114; PULSE 56–134; RESP 10–43; TEMP 36.1–36.2; O2SAT 93–99
--- NOTE | 2024-01-28 | DI.CT_ITS ---
Exam(s) CT LUMBAR SPINE RECONS CT ABDOMEN PELVIS WO EXAM: CT ABDOMEN PELVIS WO and CT lumbar spine recons CLINICAL HISTORY: low back pain hx AAA. TECHNIQUE: Imaging Protocol: Axial computed tomography images with coronal and sagittal reformatted images were created and reviewed. COMPARISON: CT CT ABDOMEN PELVIS W from 07/18/[address] ABDOMEN PELVIS WO from 12/24/2023 FINDINGS: ABDOMEN: Lung Bases: Coronary artery calcifications. Liver: Normal density. No measurable mass. Gallbladder and biliary tract: No radiodense calculus or biliary ductal dilation. Pancreas: Normal density, no abnormal calcifications or inflammatory process. Spleen: Normal. Kidneys: Normal size, contour and axis.No radiodense stones or obstructive uropathy. Stable renal cys ts. Adrenal glands: No mass is seen. Lymph nodes: Within normal limits. Abdominal Aorta: There is again seen an infrarenal abdominal aortic aneurysm. An aorto bi-iliac sten t is also in place. Above the level of the stent proximal to the renal artery takeoff, there is new aneurysmal dilatation measuring 4.5 by 4.4 cm. There is extension beyond the calcifications. The ren rders somewhat hazy in appearance. There is also a new protrusion anteriorly in the distal aneurysm (series 2, image 51). PELVIS: Bladder:Symmetric distention, no gross wall thickening. Bowel: There is diverticulosis of the colon but no evidence of acute diverticulitis. The bowel shows no evidence of obstruction or wall thickening. The stomach is incompletely distended limiting evalu ation. No evidence of appendicitis. Peritoneal cavity: No ascites, collection or mesenteric inflammatory response. No free air. Reproductive organs: Unremarkable as visualized. Bones: Within normal limits. Soft Tissues: There is a fat containing left inguinal hernia. CT lumbar spine recons: Age-appropriate degenerative changes are present throughout the lumbar spine. The findings are most marked at L3-L4 where there is marked central spinal canal stenosis. No acut e fracture or subluxation is present. IMPRESSION: 1. New aneurysmal dilatation of the abdominal aorta proximal to the stent and proximal to the renal a rtery takeoff. Rupture should be considered. Infection should also be considered in this region. 2. No acute fracture or subluxation in the lumbar spine. 3. No other acute abdominal pelvic process. 4. Findings were discussed with Dr. Méndez at 9:30 a.m. on 01/28/2024. RADIATION DOSE DELIVERED: 552.51mGy.cm Total DLP DATA REPOSITORY: All CT scans at this facility are submitted to the National Radiology Data Registry (NRDR) Dose Index Registry (DIR) with the [employer] (A[employer]). RADIATION OPTIMIZATION: All CT scans at this facility use at least one of these dose optimization te chniques: automated exposure control; mA and/or kV adjustment per patient size (includes targeted exa ms where dose is matched to clinical indication); or iterative reconstruction.
--- NOTE | 2024-01-28 07:30 | W.ED.GENAD ---
Discharge Plan Disposition Patient Disposition: Home Discharge Details Clinical Impression: AAA (abdominal aortic aneurysm) without rupture, Back pain Primary Care Provider: Maximino Lucero ED Provider: Rolando Méndez Home Meds and New Rx's Prescriptions: Continued tamsulosin 0.4 mg capsule 0.4 mg PO DAILY amlodipine 2.5 mg tablet 2.5 mg PO DAILY allopurinol 100 mg tablet 100 mg PO .every other day insulin glargine 100 unit/mL solution 5 unit subcut QPM sitagliptin 50 mg tablet 50 mg PO DAILY magnesium oxide 400 mg magnesium capsule 400 mg PO BID Patient Comments: pt. reports he has been out of it nitroglycerin [Nitrostat] 0.4 mg tablet, sublingual 0.4 mg sublingual Q5 MIN PRN X3 PRN Rx Instructions: as a single dose; administer 5-10 minutes before situation known to precipitate angina attack apixaban 2.5 mg tablet 2.5 mg PO BID Patient Comments: 11/27/[address] [facility] due to elevated creatinine 2.4 RH alogliptin 6.25 mg tablet 6.25 mg PO DAILY calcitriol 0.25 mcg capsule 0.25 mcg PO DAILY cholecalciferol (vitamin D3) 25 mcg (1,000 unit) capsule 25 mcg PO DAILY lisinopril 10 mg tablet 10 mg PO DAILY atorvastatin [Lipitor] 40 MG tablet 40 mg PO QPM acetaminophen [Acetaminophen Extra Strength] 500 mg Tablet 1,000 mg PO Q8H PRN cyanocobalamin (vitamin B-12) 1,000 mcg Tablet 1,000 mcg PO DAILY furosemide 40 mg tablet 80 mg PO DAILY albuterol sulfate 90 mcg/actuation HFA aerosol inhaler 2 puff INHALATION ONCE PRN Patient Comments: INHALE TWO PUFFS BY MOUTH EVERY 4 TO 6 HOURS NEEDED metoprolol succinate 50 mg tablet extended release 24 hr 25 mg PO DAILY Qty: 0 0RF cyclobenzaprine 5 mg tablet 5 mg PO QHS PRN (Reason: muscle spasm) Qty: 10 0RF Discharge Instructions Additional Instructions: You were seen in the emergency department for your back pain. Your CAT scan shows concerns that your aneurysm may have expanded slightly. Please call the vascular surgery clinic at [facility] for follow-up in the next week: [phone]. As we discussed, please return to the emergency department if you pass out develop worsening pain shortness of breath or have any other concerns. For your pain please take medications as follows: 1. Take acetaminophen (Tylenol), 1,000 mg (two 500 mg tabs) every 6 hours HPI General Date/Time Provider Initiated Documentation: 01/28/24 07:30. HPI Narrative: MDM This is an 88-year-old afebrile and not tachycardic male with history of AAA status post repair with abdominal pain back pain concerning for the possibility of rupture. Patient unfortunately has significant CKD with a GFR of 14 so as result I obtained a noncontrast scan initially. This scan was concerning for the possibility of dissection so I provided the patient with 500 cc of crystalloid and will return him to CT for angiogram of his thoracic chest abdomen pelvis. No rash to back to suggest zoster. No pain or proportion to suggest necrotizing soft tissue infection. Minimal right lower quadrant tenderness so my suspicion for appendicitis is low. No trauma so my suspicion is relatively low for retroperitoneal bleed however the patient is on apixaban so this is certainly still a possibility. Patient has a circumcised penis and no signs of paraphimosis. He has no abnormal lie of the testicles and no lateralizing symptoms to suggest testicular torsion. No diarrhea to suggest diverticulitis. No dysuria no frequency so my suspicion is low for UTI. No chest pain to suggest ACS. No shortness of breath to suggest PE. No black or bloody stools so my suspicion is low for GI bleed. Ureterolithiasis is certainly in the differential. Based on the patient's age will obtain CT thoracic and lumbar spine as certainly it is possible that he could have a pathological fracture. No vomiting to suggest small bowel obstruction. 10 AM CBC showing improved leukocytosis. Persistent normocytic anemia. No thrombocytopenia. I spoke with Dr. Schmidt from radiology. Patient had new aneurysmal dilatation of the abdominal aorta proximal to the stent and proximal to the renal arteries. This is concerning for rupture and infection. Will proceed with contrast study and provide 500 cc of crystalloid prior to contrast bolus. Patient remains hemodynamically stable nontachycardic. Met with the patient and he confirms full code. Will send type and screen. 1:08 PM I spoke to Dr. Head from vascular surgery at [facility]. He reported that he would have his clinic staff arranged to have the patient seen in the next week as he would likely benefit from a fenestrated repair of his endograft. Will pass along the clinic number to the patient: [phone]. I have also passed along the patient and his mason apprentice's numbers to vascular surgery and they will call the patient. Will discuss return indications including any syncope or worsening abdominal pain any nausea or vomiting. Will discharge with an empiric trial of expectant outpatient management. Chronic conditions affecting the care of the patient: AAA status postrepair History obtained from an outside historian: Patient's care provider External record review: [facility] EMR Medications: 500 cc crystalloid Social determinants of health affecting disposition: N/A Management discussed with: Vascular surgery [facility] Treatment/interventions considered: N/A Response to therapies provided: Mildly improved symptoms in the emergency department HPI This is an 88-year-old male with history of AAA on apixaban arrived to the emergency department via private vehicle with his care provider in the setting of low back pain abdominal pain and pain radiating into his groin for the past several days. Patient is not yet taken his home medications. He is intermittently been moaning and crying. He denies dysuria frequency hematuria nausea vomiting fevers chest pain shortness of breath. No history of ureterolithiasis. He endorses a sharp low back pain.He has had no numbness or tingling in his feet. No pain with moving his feet. He had a normal bowel movement last night denies black or bloody stools. He occasionally gets some reflux. He is an insulin-dependent diabetic. Exam General: Elderly-appearing in no acute distress speaking in complete sentences. Head: Normocephalic, atraumatic. Eye: Extraocular eye movements intact. No conjunctival injection. No scleral icterus. Ear, nose, mouth, throat: Grossly normal inspection. Normal voice, handling secretions normally. Neck: Trachea midline. Cardiovascular: Well-perfused distal extremities. Regular rate and rhythm Respiratory: Nonlabored respiration. Clear lungs bilaterally. Gastrointestinal: Nondistended abdomen. Soft. Abdominal incisions appear well-healed. Back: No rash to back. Minimal lumbar spinal tenderness and paraspinal muscle tenderness. No rash to back. No step-offs. No deformities. Musculoskeletal: No edema. Moving all 4 extremities spontaneously. Skin: Normal for age and race, grossly normal temperature and turgor. No acute rash. Neurologic: Alert and appropriate, no apparent acute deficits. Psychiatric: Mood and manner are appropriate. Grooming and personal hygiene are appropriate. Related Data Home Medications ?Medication ?Instructions ?Recorded ?Confirmed atorvastatin 40 mg tablet (Lipitor) 40 mg PO QPM 09/20/17 01/28/24 magnesium oxide 400 mg PO BID 01/14/20 01/28/24 nitroglycerin 0.4 mg sublingual 0.4 mg sublingual Q5 MIN PRN X3 PRN 01/14/20 01/28/24 tablet (Nitrostat) acetaminophen 500 mg tablet 1,000 mg PO Q8H PRN 02/29/20 01/28/24 (Acetaminophen Extra Strength) cyanocobalamin (vitamin B-12) 1,000 mcg PO DAILY 03/01/20 01/28/24 1,000 mcg tablet tamsulosin 0.4 mg capsule 0.4 mg PO DAILY 11/27/20 01/28/24 apixaban 2.5 mg tablet 2.5 mg PO BID 05/31/21 01/28/24 amlodipine 2.5 mg tablet 2.5 mg PO DAILY 07/11/22 01/28/24 furosemide 40 mg tablet 80 mg PO DAILY swelling 07/11/22 01/28/24 albuterol sulfate 90 mcg/actuation 2 puff inhalation ONCE PRN 05/17/23 01/28/24 aerosol inhaler alogliptin 6.25 mg tablet 6.25 mg PO DAILY 10/07/23 01/28/24 calcitriol 0.25 mcg capsule 0.25 mcg PO DAILY 10/07/23 01/28/24 cholecalciferol (vitamin D3) 25 25 mcg PO DAILY 10/07/23 01/28/24 mcg (1,000 unit) capsule lisinopril 10 mg tablet 10 mg PO DAILY 10/07/23 01/28/24 metoprolol succinate 50 mg 25 mg (1/2 x 50 mg) PO DAILY #0 10/07/23 01/28/24 tablet,extended release 24 hr tabs allopurinol 100 mg tablet 100 mg PO .every other day 01/21/24 01/28/24 insulin glargine 100 unit/mL 5 unit subcut QPM 01/21/24 01/28/24 subcutaneous solution sitagliptin 50 mg tablet 50 mg PO DAILY 01/21/24 01/28/24 cyclobenzaprine 5 mg tablet 5 mg PO QHS PRN muscle spasm #10 01/25/24 01/28/24 tabs Previous Rx's ?Medication ?Instructions ?Recorded metoprolol succinate 50 mg 25 mg (1/2 x 50 mg) PO DAILY #0 10/07/23 tablet,extended release 24 hr tabs cyclobenzaprine 5 mg tablet 5 mg PO QHS PRN muscle spasm #10 01/25/24 tabs Allergies Allergy/AdvReac Type Severity Reaction Status Date / Time adhesive Allergy Severe significant Verified 01/28/24 07:32 skin reaction, swelling, erythema, discomfort neomycin Allergy Unknown Verified 01/28/24 07:32 General Stated Complaint: Abd Prob ASTON: 3 Course Vital Signs Vital signs: Vital Signs Temperature 36.1 C L 01/28/24 07:28 Pulse 65 01/28/24 07:28 Respiratory Rate 16 01/28/24 07:28 Blood Pressure 143/94 H 01/28/24 07:28 Pulse Oximetry 97 01/28/24 07:28 Temperature 36.1 C L 01/28/24 07:28 Temperature Source Temporal Artery Scan 01/28/24 07:28 Pulse 65 01/28/24 07:28 Respiratory Rate 16 01/28/24 07:28 Blood Pressure 143/94 H 01/28/24 07:28 Blood Pressure Position Sitting 01/28/24 07:28 Pulse Oximetry 97 01/28/24 07:28 Oxygen Delivery Method Room Air 01/28/24 07:28 Oxygen Flow Rate 0 01/28/24 07:28 Pain Level 10 01/28/24 07:28 Medical Decision Making Quality:SDOH Health Related Social Needs: No Data to Display PFSH All Active Problems (Updated 01/28/24 @ 13:10 by Rolando Méndez MD) AAA (abdominal aortic aneurysm) without rupture (Acute) Back pain (Acute) Insulin dependent type 2 diabetes mellitus (Acute) CKD (chronic kidney disease) (Chronic) Hypoglycemia (Acute) CAD (coronary artery disease) (Chronic) Bradycardia (Acute) Gout of left knee (Acute) Trigger thumb of left hand (Acute) Acute kidney injury superimposed on CKD (Acute) Severe sepsis (Acute) Chronic kidney disease, stage 4 (severe) (Acute) Medication management (Acute) amiodarone for afib EKG Q 12 Months RH HTN (hypertension) (Acute) CAD (coronary artery disease) (Chronic) Dermatitis (Acute) Atrial fibrillation (Chronic) Chest pain (Acute) Acute non-ST elevation myocardial infarction (NSTEMI) (Acute) Wound dehiscence, surgical (Acute) Type 2 diabetes mellitus (Chronic) Fatty liver (Acute) Chronic kidney disease, stage 3 (Chronic) Mass of salivary gland (Acute) Ischemic cardiomyopathy (Chronic) Skin lesion of scalp (Acute) Anemia (Chronic) Hearing impairment (Acute) Medical History HLD (hyperlipidemia) Former smoker Balanitis Atrial flutter Edema Cruz's disease Phimosis (10/17/15) Erectile dysfunction AAA (abdominal aortic aneurysm) Hypomagnesemia CHF (congestive heart failure) Renal insufficiency 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) Diverticulitis of large intestine with abscess Hypercholesterolemia Diabetes mellitus Myocardial infarct Phimosis Surgical History Status post colostomy takedown (~03/01/20) S/P left hemicolectomy (~07/19/18) H/O phimosis s/p repair History of heart artery stent S/P hernia repair History of endovascular stent graft for abdominal aortic aneurysm (AAA) Social History Smoking/Tobacco Use Status: Former Tobacco Use Quit Date: 01/03/17 Tobacco: How many years used: 60 Smoking risk assessment performed?: Yes Alcohol Intake: former Drug use: Never Substance use type: does not use Housing: house Do you feel safe at home: Yes Do you feel safe in your relationship?: Yes Additional Social history: at side
--- NOTE | 2024-01-28 08:07 | DI.CT_ITS ---
Exam(s) CT THORACIC SPINE WO CT THORAX ABD/PEL CTA EXAM: CT THORAX ABD/PEL CTA CLINICAL HISTORY: hx aaa. TECHNIQUE: Imaging Protocol: Axial CT angiography was performed with multi-slice acquisition and m ulti-planar and/or 3D reconstructions. CONTRAST MATERIAL: Intravenous: Omnipaque 350 contrast volume:100 mL Oral: No COMPARISON: CT NECK WITH CONTRAST from 10/22/[address] ABDOMEN PELVIS W from 07/18/[address] CHEST WO from 03/08/[address] CHEST/ABD/PEL WO from 05/17/[address] ABDOMEN PELVIS WO from 12/24/[address] ABDOMEN PELVIS WO from 01/28/2024 FINDINGS: CHEST: Tracheobronchial tree: Patent where visualized. Pulmonary parenchyma: Chronic interstitial fibrotic changes are seen in the lungs. No focal consolida ting infiltrates are seen. Atelectatic changes are seen in the lung bases. Pulmonary Arteries: Due to the timing of the bolus, the pulmonary arteries are not adequately opacifi ed for evaluation of pulmonary emboli. No large central pulmonary embolus is seen. Mediastinum and Yudi: No dominant adenopathy or fluid collection. The esophagus is unremarkable. Visualized thyroid: Unremarkable. Pleura: No effusion or pneumothorax. Heart: The heart is enlarged. Coronary artery calcifications are present. No pericardial effusion. Aorta: Atherosclerotic calcifications are present. The ascending thoracic aorta measures 4.3 x 4.0 cm . The descending thoracic aorta measures 3.3 x 3.3 cm. The thoracic aorta has a similar appearance co mpared to the prior examination. 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 No dissection. Soft Tissues: Unremarkable. Bones: Within normal limits for the patient's age. Thoracic spine recons: Age-appropriate degenerative changes are present. No acute fractures or sublux ations are present. ABDOMEN AND PELVIS: Abdomen: Celiac axis/mesenteric arteries: No evidence of occlusion or significant stenosis. Renal Arteries: No evidence of occlusion or significant stenosis. There is a single renal artery per fusing each kidney. Aorta: Atherosclerotic calcification is seen. There is an infrarenal abdominal aortic aneurysm with an endovascular aorta bi-iliac stent in place. There is no evidence of an endovascular leak. There is new dilatation of the suprarenal abdominal aorta proximal to the stent. Findings are suspicious for a recent dissection. There is a small residual lumen anterior to the right measuring 1 cm (series 8, image 64. There is also a residual small lumen posteriorly on the left which measures 1.1 cm (series 8, image 61). No findings to suggest infection. Pelvis: Iliac Arteries: No evidence of occlusion or significant stenosis. Common Femoral Arteries: No evidence of occlusion or significant stenosis. ABDOMEN: Liver: Normal density. There is a tiny hypodensity in the left lobe of the liver. It is too small fo r further characterization but likely reflects a small cyst. No follow-up is recommended. Portal, superior mesenteric and splenic veins: Unremarkable. Gallbladder and Biliary Tract: Gallstones. No biliary ductal dilatation. Pancreas: Normal density, no abnormal calcifications or inflammatory process. Spleen: Normal. Adrenals: No masses seen. Kidneys: Bilateral cortical renal atrophy. No radiodense stones or obstructive uropathy. Bilateral s imple renal cysts. No follow-up is recommended. Bowel: The stomach is incompletely distended limiting evaluation. There is diverticulosis of the col on without evidence of acute diverticulitis. There is no evidence of bowel obstruction or bowel wall thickening. No evidence of appendicitis. Peritoneal Cavity: No ascites, collection or mesenteric inflammatory response. No free air. Lymph Nodes: Within normal limits. Bones: Within normal limits for the patient's age. No aggressive osseous lesions are identified. Soft Tissues: Unremarkable. PELVIS: Bladder: Symmetric distention, no gross wall thickening. Reproductive Organs: Unremarkable as visualized. Lymph Nodes: Within normal limits. Bones: Within normal limits for the patient's age. IMPRESSION: 1. Findings suggestive of a new suprarenal abdominal aortic dissection which has occurred since the m ost recent examination from 12/24/2023. This is proximal to the endovascular stent. There are small re sidual enhancing lumens present which may represent small pseudoaneurysms. 2. No evidence of an endovascular leak in the distal abdominal aortic aneurysm. 3. No evidence of a pulmonary embolism. 4. Incidental findings in the chest, abdomen and pelvis as described above. 5. No acute fracture or subluxation is seen in the thoracic spine. 6. Findings were discussed with Dr. Méndez at 11:30 a.m. on 01/28/2024. RADIATION DOSE DELIVERED: 1,456.98mGy.cm Total DLP DATA REPOSITORY: All CT scans at this facility are submitted to the National Radiology Data Registry (NRDR) Dose Index Registry (DIR) with the [employer] ([employer]). RADIATION OPTIMIZATION: All CT scans at this facility use at least one of these dose optimization te chniques: automated exposure control; mA and/or kV adjustment per patient size (includes targeted exa ms where dose is matched to clinical indication); or iterative reconstruction.
[2024-01-28 08:28] LABS: Abs Immature Grans 0.06 10^3/uL (0.0-0.06); Absolute Basophil Count 0.05 10^3/uL (0.0-0.2); Absolute Eosinophil Count 0.25 10^3/uL (0.0-0.7); Absolute Lymphocyte Count 1.76 10^3/uL (1.2-3.4); Basophils % 0.4 %; Eosinophils % 2.1 %; HCT 37.3 % (40.0-50.0); HGB 11.7 g/dL (13.5-17.5); Immature Grans % 0.5 %; Lymphocytes % 15.1 %; MCH 29.1 pg (27.0-33.0); MCHC 31.4 % (32.0-36.0); MCV 93 fL (80-95); MPV 9.8 fL (8.0-11.0); Monocytes % 10.4 %; Neutrophils % 71.5 %; Platelet Count 305 10^3/uL (130-400); RBC 4.02 10^6/uL (4.36-5.78); RDW 13.5 % (11.8-14.1); RDW-SD 46.4 fL; WBC 11.68 10^3/uL (4.4-10.8)
[2024-01-28 08:29] LABS: Absolute Monocyte Count 1.21 10^3/uL (0.1-0.8); Absolute Neutrophil Count 8.35 10^3/uL (1.2-6.7)
[2024-01-28 08:41] LABS: Anion Gap 4.7 mmol/L (3-11); BUN 42 mg/dL (7-18); CO2 28.3 mmol/L (21.0-32.0); CREATININE 3.4 mg/dL (0.70-1.30); Calcium 9.5 mg/dL (8.5-10.1); Chloride 103 mmol/L (98-107); Estimated GFR 16.77 (mL/min/1.73m2); Glucose 119 mg/dL (74-106); Potassium 4.1 mmol/L (3.5-5.1); Sodium 136 mmol/L (136-145)
--- NOTE | 2024-01-28 08:52 | NUR.NOTE ---
Pt to CT via wheelchair.
[2024-01-28] MEDS: Normal Saline - Diluent 50 ML VIAL IJ (09:42)
[2024-01-28] MEDS: Omnipaque 350 MG/ML 500 ML BTL-Imaging package 100 ML IJ (09:43)
[2024-01-28] MEDS: Normal Saline 500 ML IV (09:55)
[2024-01-28] MEDS: fentaNYL 100 MCG/2 ML VIAL 50 MCG IVP (10:59)
[2024-01-28] MEDS: Tamsulosin 0.4 MG CAPCR PO (11:51)
[2024-01-28] MEDS: Lisinopril 10 MG TAB PO (11:51)
[2024-01-28] MEDS: Furosemide 40 MG TAB 80 MG PO (11:52)
[2024-01-28] MEDS: amLODIPine 2.5 MG TAB PO (11:52)
[2024-01-28] MEDS: MORPHine IR 15 MG TAB PO (12:37)
[2024-01-28] MEDS: MORPHine IR 15 MG TAB, 4 TABS/BTL PO (13:27)
== END 2024-01-28 13:42 | disposition home or self-care (01) ==
PROVIDERS: Emergency Provider Emergency Medicine; PCP Student in an Organized Health Care Education/Training Program
DX: M54.50 Low back pain, unspecified (principal); R10.30 Lower abdominal pain, unspecified; I71.40 Abdominal aortic aneurysm, without rupture, unspecified
CPT/HCPCS: 36415; 71275; 80048; 86850; 86900; 86901; 96361; 96374; 99285; 72128; 74174; 74176; 85025; 99284; J3010

== ENCOUNTER 2024-02-06 09:18 | Emergency (ER) | payer MEDICARE, SELFPAY ==
--- NOTE | 2024-02-06 09:43 | ED.GENADUL_ITS ---
Discharge Plan Disposition Patient Disposition: Home Discharge Details Clinical Impression: Closed comminuted fracture of left humerus Primary Care Provider: Maximino Lucero ED Provider: Rolando Méndez Home Meds and New Rx's Prescriptions: Continued tamsulosin 0.4 mg capsule 0.4 mg PO DAILY amlodipine 2.5 mg tablet 2.5 mg PO DAILY allopurinol 100 mg tablet 100 mg PO .every other day insulin glargine 100 unit/mL solution 5 unit subcut QPM sitagliptin 50 mg tablet 50 mg PO DAILY magnesium oxide 400 mg magnesium capsule 400 mg PO BID Patient Comments: pt. reports he has been out of it nitroglycerin [Nitrostat] 0.4 mg tablet, sublingual 0.4 mg sublingual Q5 MIN PRN X3 PRN Rx Instructions: as a single dose; administer 5-10 minutes before situation known to precipitate angina attack apixaban 2.5 mg tablet 2.5 mg PO BID Patient Comments: 11/27/20 [place] [facility] [place] creatinine 2.4 RH alogliptin 6.25 mg tablet 6.25 mg PO DAILY calcitriol 0.25 mcg capsule 0.25 mcg PO DAILY cholecalciferol (vitamin D3) 25 mcg (1,000 unit) capsule 25 mcg PO DAILY atorvastatin [Lipitor] 40 MG tablet 40 mg PO QPM acetaminophen [Acetaminophen Extra Strength] 500 mg Tablet 1,000 mg PO Q8H PRN cyanocobalamin (vitamin B-12) 1,000 mcg Tablet 1,000 mcg PO DAILY albuterol sulfate 90 mcg/actuation HFA aerosol inhaler 2 puff INHALATION ONCE PRN Patient Comments: INHALE TWO PUFFS BY MOUTH EVERY 4 TO 6 HOURS NEEDED metoprolol succinate 50 mg tablet extended release 24 hr 25 mg PO DAILY Qty: 0 0RF cyclobenzaprine 5 mg tablet 5 mg PO QHS PRN (Reason: muscle spasm) Qty: 10 0RF Discharge Instructions Instructions: Upper Arm Fracture ED Additional Instructions: You are seen in the emergency department for your arm pain. You are found to have a humerus fracture. Please call orthopedic team next week for follow-up. Please return to the emergency department as we discussed if you cannot move your hand or if you take any other falls. For your pain please take medications as follows: 1. Take acetaminophen (Tylenol), 1,000 mg (two 500 mg tabs) every 6 hours You may also take the morphine tablets prescribed to you as needed. Discharge Data Discharge Date/Time-TO BE ENTERED AT DEPARTURE: 02/06/24 12:33 HPI General Date/Time Provider Initiated Documentation: 02/06/24 09:41 . HPI Narrative: [facility] This is a chronically ill afebrile and not tachycardic 88-year-old male on apixaban with left proximal humerus tenderness status post fall concerning for fracture and x-ray consistent with left proximal humerus fracture dislocation for which we will consult orthopedics. No pain or proportion to suggest necrotizing soft tissue infection. No recent PICC lines to suggest increased risk for left upper extremity DVT. Left hand warm well-perfused and not concern for critical limb ischemia as I do not feel the patient requires a CT angiogram. No lacerations that would require repair. No preceding chest pain nor syncope send indication for syncope evaluation. Patient did reportedly hit his head so we will obtain CAT scan. No abdominal pain to suggest ruptured AAA. 12:12 PM Patient and x-ray had proximal left humerus fracture. No signs of dislocation on CT. No signs of pneumothorax. No signs of intercranial hemorrhage. I was in touch with Dr. Nickerson who advised nonweightbearing left upper extremity in a sling. I advised healthy coordinator Catherine to have patient seen next week and follow-up with orthopedics. Will treat with oral IR morphine and acetaminophen. Patient caregiver and I discussed return to the ED for worsening pain lack of sensation in left hand or any subsequent falls. Chronic conditions affecting the care of the patient: Anticoagulant use History obtained from an outside historian: Patient's care provider [place] [facility] [place] Medications: Morphine Social determinants of health affecting disposition: N/A Management discussed with: Orthopedics Treatment/interventions considered: N/A Response to therapies provided: N/A HPI This is an 88-year-old [id number] male arriving to the emergency department via private vehicle in the setting of left shoulder pain. Patient reportedly lost his balance several days ago and fell. He did not lose consciousness. He does feel that he struck his head. He landed on his left shoulder. He has been ambulatory since his injury. Denies any nausea vomiting chest pain shortness of breath. No chest pain. No shortness of breath. Exam General: Frail-appearing in no acute distress speaking in complete sentences. Head: Normocephalic, atraumatic. Eye:[Pupils equal, round reactive to light.] Extraocular eye movements intact. No conjunctival injection. No scleral icterus. Ear, nose, mouth, throat: Grossly normal inspection. Normal voice, handling secretions normally. Neck: Trachea midline. Cardiovascular: Well-perfused distal extremities. Respiratory: Nonlabored respiration. Clear lungs bilaterally Gastrointestinal: Nondistended abdomen. Soft nontender Musculoskeletal: Mild 1+ bilateral edema. Right upper extremity nontender full range of motion right hand warm well-perfused 2+ radial pulse. Left upper extremity markedly swollen in the distal humerus. There is proximal left humeral tenderness. No obvious signs of dislocation. Soft compartments. No tenderness to elbow or there is full range of motion. No forearm tenderness though there is diffuse ecchymosis. Left hand warm well-perfused 2+ left radial pulse. Cap refill less than 2 seconds in the left fingertips. Full range of motion left hand radial, median, and ulnar nerve distributions. Bilateral lower extremities nontender. Pelvis stable. Skin: Normal for age and race, grossly normal temperature and turgor. No acute rash. Neurologic: Alert and appropriate, no apparent acute deficits. GCS 15. Psychiatric: Mood and manner are appropriate. Grooming and personal hygiene are appropriate. Related Data Home Medications ?Medication ?Instructions ?Recorded ?Confirmed atorvastatin 40 mg tablet (Lipitor) 40 mg PO QPM 09/20/17 02/06/24 magnesium oxide 400 mg PO BID 01/14/20 02/06/24 nitroglycerin 0.4 mg sublingual 0.4 mg sublingual Q5 MIN PRN X3 PRN 01/14/20 02/06/24 tablet (Nitrostat) acetaminophen 500 mg tablet 1,000 mg PO Q8H PRN 02/29/20 02/06/24 (Acetaminophen Extra Strength) cyanocobalamin (vitamin B-12) 1,000 mcg PO DAILY 03/01/20 02/06/24 1,000 mcg tablet tamsulosin 0.4 mg capsule 0.4 mg PO DAILY 11/27/20 02/06/24 apixaban 2.5 mg tablet 2.5 mg PO BID 05/31/21 02/06/24 amlodipine 2.5 mg tablet 2.5 mg PO DAILY 07/11/22 02/06/24 albuterol sulfate 90 mcg/actuation 2 puff inhalation ONCE PRN 05/17/23 02/06/24 aerosol inhaler alogliptin 6.25 mg tablet 6.25 mg PO DAILY 10/07/23 02/06/24 calcitriol 0.25 mcg capsule 0.25 mcg PO DAILY 10/07/23 02/06/24 cholecalciferol (vitamin D3) 25 25 mcg PO DAILY 10/07/23 02/06/24 mcg (1,000 unit) capsule metoprolol succinate 50 mg 25 mg (1/2 x 50 mg) PO DAILY #0 10/07/23 02/06/24 tablet,extended release 24 hr tabs allopurinol 100 mg tablet 100 mg PO .every other day 01/21/24 02/06/24 insulin glargine 100 unit/mL 5 unit subcut QPM 01/21/24 02/06/24 subcutaneous solution sitagliptin 50 mg tablet 50 mg PO DAILY 01/21/24 02/06/24 cyclobenzaprine 5 mg tablet 5 mg PO QHS PRN muscle spasm #10 01/25/24 02/06/24 tabs Previous Rx's ?Medication ?Instructions ?Recorded metoprolol succinate 50 mg 25 mg (1/2 x 50 mg) PO DAILY #0 10/07/23 tablet,extended release 24 hr tabs cyclobenzaprine 5 mg tablet 5 mg PO QHS PRN muscle spasm #10 01/25/24 tabs Allergies Allergy/AdvReac Type Severity Reaction Status Date / Time adhesive Allergy Severe significant Verified 01/28/24 07:32 skin reaction, swelling, erythema, discomfort neomycin Allergy Unknown Verified 01/28/24 07:32 General ASTON: 3 Medical Decision Making Quality:SDOH Health Related Social Needs: No Data to Display PFSH All Active Problems (Updated 02/06/24 @ 12:13 by Rolando Méndez MD) Closed comminuted fracture of left humerus (Acute) AAA (abdominal aortic aneurysm) without rupture (Acute) Back pain (Acute) Insulin dependent type 2 diabetes mellitus (Acute) CKD (chronic kidney disease) (Chronic) Hypoglycemia (Acute) CAD (coronary artery disease) (Chronic) Bradycardia (Acute) Gout of left knee (Acute) Trigger thumb of left hand (Acute) Acute kidney injury superimposed on CKD (Acute) Severe sepsis (Acute) Chronic kidney disease, stage 4 (severe) (Acute) Medication management (Acute) amiodarone for afib EKG Q 12 Months RH HTN (hypertension) (Acute) CAD (coronary artery disease) (Chronic) Dermatitis (Acute) Atrial fibrillation (Chronic) Chest pain (Acute) Acute non-ST elevation myocardial infarction (NSTEMI) (Acute) Wound dehiscence, surgical (Acute) Type 2 diabetes mellitus (Chronic) Fatty liver (Acute) Chronic kidney disease, stage 3 (Chronic) Mass of salivary gland (Acute) Ischemic cardiomyopathy (Chronic) Skin lesion of scalp (Acute) Anemia (Chronic) Hearing impairment (Acute) Medical History HLD (hyperlipidemia) Former smoker Balanitis Atrial flutter Edema Opelika's disease Phimosis (10/17/15) Erectile dysfunction AAA (abdominal aortic aneurysm) Hypomagnesemia CHF (congestive heart failure) Renal insufficiency 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) Diverticulitis of large intestine with abscess Hypercholesterolemia Diabetes mellitus Myocardial infarct Phimosis Surgical History Status post colostomy takedown (~03/01/20) S/P left hemicolectomy (~07/19/18) H/O phimosis s/p repair History of heart artery stent S/P hernia repair History of endovascular stent graft for abdominal aortic aneurysm (AAA) Social History Smoking/Tobacco Use Status: Former Tobacco Use Quit Date: 01/03/17 Tobacco: How many years used: 60 Smoking risk assessment performed?: Yes Alcohol Intake: former Drug use: Never Substance use type: does not use Housing: house Do you feel safe at home: Yes Do you feel safe in your relationship?: Yes Additional Social history: at side
[2024-02-06 09:44] VITALS: BP 100/62; PULSE 58; RESP 20; TEMP 36.3; O2SAT 98
--- NOTE | 2024-02-06 10:10 | DI.RAD_ITS ---
Exam(s) XR SHOULDER LT COMPLETE 2+V EXAM: XR SHOULDER LT COMPLETE 2+V CLINICAL HISTORY: Left shoulder pain. TECHNIQUE: 2D digital imaging was performed. Are 4 views. COMPARISON: No exams were available for comparison FINDINGS: BONES: Comminuted fracture at the cysts surgical neck with separate fragment at the greater tuberosit y. Some impaction, mild displacement and mild angulation. No bony destructive lesion is seen. JOINTS: No dislocation present. Some widening of glenohumeral joint and inferior subluxation may rep resent joint effusion. No layering hemarthrosis. Spurring at the glenoid and AC joint. SOFT TISSUE: Aorta tortuous and calcified. IMPRESSION: Comminuted fracture of the humeral head and neck. DATA REPOSITORY: RADIATION DOSE DELIVERED:
--- NOTE | 2024-02-06 10:15 | DI.CT_ITS ---
Exam(s) CT UPPER EXTREMITY LT WO EXAM: CT UPPER EXTREMITY LT WO CLINICAL HISTORY: Proximal humerus fracture. TECHNIQUE: Imaging Protocol: Axial computed tomography images with coronal and sagittal reformatted images were created and reviewed. COMPARISON: No exams were available for comparison FINDINGS: Bones: Fracture of the proximal humeral shaft with approximately 1 cm lateral displacement. There is some impaction. Comminuted fragment at the greater tuberosity peer few additional tiny comminuted f ragments. No involvement of the articular surface. No additional fractures. The bones appear osteo porotic. No cellulitic or osteomyelitic changes are identified. No lytic or sclerotic lesions are identified. Joints: there are some widening and mild inferior subluxation of the humeral head wrist defect but to the glenoid. Soft Tissues: Fluid in glenohumeral joint and surrounding humeral head. Edema in the subcutaneous fa t.. IMPRESSION: Comminuted, impacted fracture of the humeral head neck. RADIATION DOSE DELIVERED: 277.58mGy.cm Total DLP 277.58mGy.cm Total DLP DATA REPOSITORY: All CT scans at this facility are submitted to the National Radiology Data Registry (NRDR) Dose Index Registry (DIR) with the [employer] ([employer]). RADIATION OPTIMIZATION: All CT scans at this facility use at least one of these dose optimization te chniques: automated exposure control; mA and/or kV adjustment per patient size (includes targeted exa ms where dose is matched to clinical indication); or iterative reconstruction.
--- NOTE | 2024-02-06 10:15 | DI.CT_ITS ---
Exam(s) CT HEAD WO EXAM: CT HEAD WO CLINICAL HISTORY: Fall head strike. TECHNIQUE: Imaging Protocol: Axial computed tomography images with coronal and sagittal reformatted images were created and reviewed COMPARISON: CT HEAD WITHOUT CONTRAST from 11/06/2015 FINDINGS: Ventricles and Extra axial spaces: Normal in size and morphology for the patient's age. Hemorrhage: None. Cerebral parenchyma: No evidence of acute infarct or mass. [id number] atrophy. Prominent whi te matter changes of small vessel disease. 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 Midline shift: None. Brainstem/Cerebellum: Normal. Calvarium: Normal. Visualized Paranasal sinuses:Clear. Mastoids: Clear. Soft Tissues: Unremarkable. ORBITS: Unremarkable. PITUITARY: Not enlarged. IMPRESSION: No acute intracranial process. RADIATION DOSE DELIVERED: 839.69mGy.cm Total DLP DATA REPOSITORY: All CT scans at this facility are submitted to the National Radiology Data Registry (NRDR) Dose Index Registry (DIR) with the [employer] (A[employer]). RADIATION OPTIMIZATION: All CT scans at this facility use at least one of these dose optimization te chniques: automated exposure control; mA and/or kV adjustment per patient size (includes targeted exa ms where dose is matched to clinical indication); or iterative reconstruction.
--- NOTE | 2024-02-06 11:35 | DI.RAD_ITS ---
Exam(s) XR CHEST 1V IN DI DEPT EXAM: XR CHEST 1V IN DI DEPT CLINICAL HISTORY: fall TECHNIQUE: 2D digital imaging was performed. COMPARISON: CR,XR XR PORTABLE CHEST AP from 01/08/2024 FINDINGS: LUNGS: Clear. No pleural abnormality seen. HEART: Enlarged. AORTA: Tortuous and calcified. BONES: Unremarkable for age. Soft tissues: Unremarkable. IMPRESSION: No acute findings. DATA REPOSITORY: RADIATION DOSE DELIVERED:
[2024-02-06] MEDS: MORPHine IR 15 MG TAB PO (12:09)
[2024-02-06 12:10] VITALS: BP 124/65; PULSE 62; RESP 16; TEMP 36.4; O2SAT 99
[2024-02-06] MEDS: MORPHine IR 15 MG TAB, 4 TABS/BTL PO (12:28)
--- NOTE | 2024-02-07 11:05 | NUR.NOTE ---
Accessed Pt chart to obtain the diagnosis for the [facility] Paperwork
== END 2024-02-06 12:33 | disposition home or self-care (01) ==
PROVIDERS: Emergency Provider Emergency Medicine; PCP Student in an Organized Health Care Education/Training Program
DX: S42.202A Unspecified fracture of upper end of left humerus, initial encounter for closed fracture (principal); W19.XXXA Unspecified fall, initial encounter
CPT/HCPCS: 99284; 70450; 71045; 73030; 73200

== ENCOUNTER 2024-02-10 14:56 | Emergency (ER) | payer MEDICARE, SELFPAY ==
[2024-02-10] VITALS (18 sets, daily range): BP systolic 112–139; BP diastolic 40–76; PULSE 0–52; RESP 0–20; TEMP 36.4; O2SAT 91–99
--- NOTE | 2024-02-10 16:35 | ED.GENADUL_ITS ---
Discharge Plan Disposition Patient Disposition: Home Condition: Stable Discharge Details Clinical Impression: Contusion of left arm, Closed comminuted fracture of left humerus Primary Care Provider: Maximino Lucero ED Provider: Clementine Tirado Home Meds and New Rx's Prescriptions: Continued tamsulosin 0.4 mg capsule 0.4 mg PO DAILY amlodipine 2.5 mg tablet 2.5 mg PO DAILY allopurinol 100 mg tablet 100 mg PO .every other day insulin glargine 100 unit/mL solution 5 unit subcut QPM sitagliptin 50 mg tablet 50 mg PO DAILY magnesium oxide 400 mg magnesium capsule 400 mg PO BID Patient Comments: pt. reports he has been out of it nitroglycerin [Nitrostat] 0.4 mg tablet, sublingual 0.4 mg sublingual Q5 MIN PRN X3 PRN Rx Instructions: as a single dose; administer 5-10 minutes before situation known to precipitate angina attack apixaban 2.5 mg tablet 2.5 mg PO BID Patient Comments: 11/27/20 started at [facility] [place] due to elevated creatinine 2.4 RH alogliptin 6.25 mg tablet 6.25 mg PO DAILY calcitriol 0.25 mcg capsule 0.25 mcg PO DAILY cholecalciferol (vitamin D3) 25 mcg (1,000 unit) capsule 25 mcg PO DAILY atorvastatin [Lipitor] 40 MG tablet 40 mg PO QPM acetaminophen [Acetaminophen Extra Strength] 500 mg Tablet 1,000 mg PO Q8H PRN cyanocobalamin (vitamin B-12) 1,000 mcg Tablet 1,000 mcg PO DAILY albuterol sulfate 90 mcg/actuation HFA aerosol inhaler 2 puff INHALATION ONCE PRN Patient Comments: INHALE TWO PUFFS BY MOUTH EVERY 4 TO 6 HOURS NEEDED metoprolol succinate 50 mg tablet extended release 24 hr 25 mg PO DAILY Qty: 0 0RF cyclobenzaprine 5 mg tablet 5 mg PO QHS PRN (Reason: muscle spasm) Qty: 10 0RF Discharge Instructions Instructions: Taking care of bruises, Upper Arm Fracture ED Additional Instructions: Keep paulette wrap on daily except for bathing. Change dressing daily. Ice 3 times daily to decrease swelling. Take your medications as previously prescribed. Follow up with primary care provider in 3-5 days if needed. Return to ED sooner if any worsening or concerns. Referrals: Heber Nickerson MD [ [facility]FF PHYSICIAN] - 2 weeks HPI General Mode of arrival: wheelchair . Date/Time Provider Initiated Documentation: 02/10/24 14:57 . Limitations to Documentation: no limitations . Information obtained by: patient, family, RN notes reviewed and old records reviewed . HPI Narrative: 88 year old male presents to the ER for a re-check after a proximal left humerus fracture on 02/05. Patient is on Eliquis and family reports that since the fall he's had increased swelling, ecchymosis and drainage from left extremity from a small opening in left inner frorearm. He was sent here from PCP office. Patient has good distal pulses radial and ulnar, hand is warm he is able to move his fingers. He does have sensation intact to his left hand. Noted approximately 2-3+ edema. There is a small opening noted on inner left forearm. He does have bruising and ecchymosis noted. Related Data Home Medications ?Medication ?Instructions ?Recorded ?Confirmed atorvastatin 40 mg tablet (Lipitor) 40 mg PO QPM 09/20/17 02/10/24 magnesium oxide 400 mg PO BID 01/14/20 02/10/24 nitroglycerin 0.4 mg sublingual 0.4 mg sublingual Q5 MIN PRN X3 PRN 01/14/20 02/10/24 tablet (Nitrostat) acetaminophen 500 mg tablet 1,000 mg PO Q8H PRN 02/29/20 02/10/24 (Acetaminophen Extra Strength) cyanocobalamin (vitamin B-12) 1,000 mcg PO DAILY 03/01/20 02/10/24 1,000 mcg tablet tamsulosin 0.4 mg capsule 0.4 mg PO DAILY 11/27/20 02/10/24 apixaban 2.5 mg tablet 2.5 mg PO BID 05/31/21 02/10/24 amlodipine 2.5 mg tablet 2.5 mg PO DAILY 07/11/22 02/10/24 albuterol sulfate 90 mcg/actuation 2 puff inhalation ONCE PRN 05/17/23 02/10/24 aerosol inhaler alogliptin 6.25 mg tablet 6.25 mg PO DAILY 10/07/23 02/10/24 calcitriol 0.25 mcg capsule 0.25 mcg PO DAILY 10/07/23 02/10/24 cholecalciferol (vitamin D3) 25 25 mcg PO DAILY 10/07/23 02/10/24 mcg (1,000 unit) capsule metoprolol succinate 50 mg 25 mg (1/2 x 50 mg) PO DAILY #0 10/07/23 02/10/24 tablet,extended release 24 hr tabs allopurinol 100 mg tablet 100 mg PO .every other day 01/21/24 02/10/24 insulin glargine 100 unit/mL 5 unit subcut QPM 01/21/24 02/10/24 subcutaneous solution sitagliptin 50 mg tablet 50 mg PO DAILY 01/21/24 02/10/24 cyclobenzaprine 5 mg tablet 5 mg PO QHS PRN muscle spasm #10 01/25/24 02/10/24 tabs Previous Rx's ?Medication ?Instructions ?Recorded metoprolol succinate 50 mg 25 mg (1/2 x 50 mg) PO DAILY #0 10/07/23 tablet,extended release 24 hr tabs cyclobenzaprine 5 mg tablet 5 mg PO QHS PRN muscle spasm #10 01/25/24 tabs Allergies Allergy/AdvReac Type Severity Reaction Status Date / Time adhesive Allergy Severe significant Verified 02/10/24 15:03 skin reaction, swelling, erythema, discomfort neomycin Allergy Unknown Verified 02/10/24 15:03 General Stated Complaint: Vascular ASTON: 3 Review of Systems All systems reviewed & are unremarkable except as noted in HPI and below Integumentary/Breasts Skin/Breast: Reports skin swelling, Reports unusual bruising and Reports wounds Exam Extrem Left upper extremity: edema Shoulder/upper arm images: 2 1. Ecchymosis, swelling, 2-3+ edema. Course Vital Signs Vital signs: Vital Signs Temperature 36.4 C 02/10/24 14:58 Pulse 52 L 02/10/24 14:58 Respiratory Rate 14 02/10/24 14:58 Blood Pressure 112/69 02/10/24 14:58 Pulse Oximetry 94 02/10/24 14:58 Temperature 36.4 C 02/10/24 14:58 Temperature Source Temporal Artery Scan 02/10/24 14:58 Pulse 52 L 02/10/24 14:58 Respiratory Rate 14 02/10/24 14:58 Blood Pressure 112/69 02/10/24 14:58 Blood Pressure Position Sitting 02/10/24 14:58 Pulse Oximetry 94 02/10/24 14:58 Oxygen Delivery Method Room Air 02/10/24 14:58 Oxygen Flow Rate 0 02/10/24 14:58 Pain Level 10 02/10/24 14:58 Medical Decision Making 88 year old male presents to the ER for a re-check after a proximal left humerus fracture on 02/05. Patient is on Eliquis and family reports that since the fall he's had increased swelling, ecchymosis and drainage from left extremity from a small opening in left inner frorearm. He was sent here from PCP office. Patient has good distal pulses radial and ulnar, hand is warm he is able to move his fingers. He does have sensation intact to his left hand. Noted approximately 2-3+ edema. There is a small opening noted on inner left forearm. He does have bruising and ecchymosis noted. Labs ordered including CBC, PT, PTT, CMP, Magnesium. Dr. Nickerson messaged via [employer] for consultation. Dr. Nickerson reccommends a XR of forearm, swelling and ecchymosis most likely due to expected bruising and eliquis. 1843: Dr. Nickerson here at for patient evaluation, he recommends compression bandage and observation, family aware of home care and all questions answered. Pateint does not want joint replacement, so at this time it is not surgical. Patient discharged into the care of his family, verbalized understanding, patient ambulatory hemodynamically stable throughout the remainder of stay. This text was generated using [employer] dictation system, please disregard any oddities of phrase or misspellings. Medical Records Medical records reviewed: Yes I reviewed the patient's medical records. Medical records narrative: Seen on 02/06/24, had XRays and CT of extremity. Imaging Data Radiologic Study: Imaging: X-Ray Radiologist's impression: EXAM: XR FOREARM LT CLINICAL HISTORY: Fall, Swelling, Drainage. TECHNIQUE: 2D digital imaging was performed. Two views. COMPARISON: No exams were available for comparison FINDINGS: BONES: No acute fracture is present. No bony destructive lesion is seen. Visualized portion of elbow is unremarkable. There are severe degenerative changes at the 1st carpal metacarpal joint. SOFT TISSUE: Marked diffuse soft tissue swelling seen from the hand through the level of the elbow. No foreign body. No abnormal soft tissue gas collection. Small soft tissue laceration noted in the mid forearm. IMPRESSION: Marked soft tissue swelling consistent with cellulitis. No bony abnormality. Lab Data Lab results reviewed: Yes I reviewed the patient's lab results. Labs: Laboratory Tests Range/Units 02/10/24 17:12 WBC (4.4-10.8) 10^3/uL 11.21 H RBC (4.36-5.78) 10^6/uL 3.11 L Hgb (13.5-17.5) g/dL 9.0 L Hct (40.0-50.0) % 29.0 L MCV (80-95) fL 93 MCH (27.0-33.0) pg 28.9 MCHC (32.0-36.0) % 31.0 L RDW (11.8-14.1) % 14.6 H Plt Count (130-400) 10^3/uL 280 MPV (8.0-11.0) fL 9.5 Immature Gran % % 0.0 Neutrophils % % 71.0 Lymphocytes % % 13.0 Monocytes % % 15.0 Eosinophils % % 1.0 Basophils % % 0.0 Nucleated RBC % (0.0-0.3) % 0.0 Absolute Neutrophils (1.2-6.7) 10^3/uL 7.96 H Absolute Lymphocytes (1.2-3.4) 10^3/uL 1.46 Absolute Monocytes (0.1-0.8) 10^3/uL 1.68 H Absolute Eosinophils (0.0-0.7) 10^3/uL 0.11 Absolute Basophils (0.0-0.2) 10^3/uL 0.00 PT (9.1-11.1) sec 11.2 H INR (0.9-1.1) 1.1 APTT (23.6-32.8) sec 34.3 H Sodium (136-145) mmol/L 137 Potassium (3.5-5.1) mmol/L 5.1 Chloride (98-107) mmol/L 104 Carbon Dioxide (21.0-32.0) mmol/L 26.7 Anion Gap (3-11) mmol/L 6.3 BUN (7-18) mg/dL 36 H Creatinine (0.70-1.30) mg/dL 2.8 H Est GFR (CKD-EPI 2020) (mL/min/1.73m2) 21.17 Glucose (74-106) mg/dL 118 H Calcium (8.5-10.1) mg/dL 9.1 Magnesium (1.8-2.4) mg/dL 2.1 Total Bilirubin (0.2-1.0) mg/dL 0.76 AST (15-37) U/L 42 H ALT (16-63) U/L 37 Alkaline Phosphatase (46-116) U/L 156 H Total Protein (6.4-8.2) g/dL 6.9 Albumin (3.4-5.0) g/dL 2.0 L Quality:SDOH Health Related Social Needs: 2 No Data to Display PFSH All Active Problems (Updated 02/10/24 @ 18:44 by Clementine Tirado NP) Contusion of left arm (Acute) Closed comminuted fracture of left humerus (Acute) AAA (abdominal aortic aneurysm) without rupture (Acute) Back pain (Acute) Gout of left knee (Acute) Trigger thumb of left hand (Acute) Acute kidney injury superimposed on CKD (Acute) Severe sepsis (Acute) Chronic kidney disease, stage 4 (severe) (Acute) Medication management (Acute) amiodarone for afib EKG Q 12 Months RH HTN (hypertension) (Acute) CAD (coronary artery disease) (Chronic) Dermatitis (Acute) Atrial fibrillation (Chronic) Chest pain (Acute) Acute non-ST elevation myocardial infarction (NSTEMI) (Acute) Wound dehiscence, surgical (Acute) Type 2 diabetes mellitus (Chronic) Fatty liver (Acute) Chronic kidney disease, stage 3 (Chronic) Mass of salivary gland (Acute) Ischemic cardiomyopathy (Chronic) Skin lesion of scalp (Acute) Anemia (Chronic) Hearing impairment (Acute) Medical History HLD (hyperlipidemia) Former smoker Balanitis Atrial flutter Edema Dunfermline's disease Phimosis (10/17/15) Erectile dysfunction AAA (abdominal aortic aneurysm) Hypomagnesemia CHF (congestive heart failure) Renal insufficiency 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) Diverticulitis of large intestine with abscess Hypercholesterolemia Diabetes mellitus Myocardial infarct Phimosis Surgical History Status post colostomy takedown (~03/01/20) S/P left hemicolectomy (~07/19/18) H/O phimosis s/p repair History of heart artery stent S/P hernia repair History of endovascular stent graft for abdominal aortic aneurysm (AAA) Social History Smoking/Tobacco Use Status: Former Tobacco Use Quit Date: 01/03/17 Tobacco: How many years used: 60 Smoking risk assessment performed?: Yes Alcohol Intake: former Drug use: Never Substance use type: does not use Housing: house Do you feel safe at home: Yes Do you feel safe in your relationship?: Yes Additional Social history: at side
[2024-02-10 17:21] LABS: Abs Immature Grans 0.14 10^3/uL (0.0-0.06); MCH 28.9 pg (27.0-33.0); MCV 93 fL (80-95); MPV 9.5 fL (8.0-11.0); Platelet Count 280 10^3/uL (130-400); RBC 3.11 10^6/uL (4.36-5.78); RDW 14.6 % (11.8-14.1); RDW-SD 48.9 fL; WBC 11.21 10^3/uL (4.4-10.8)
[2024-02-10 17:35] LABS: INR 1.1 (0.9-1.1); PTT Activated 34.3 sec (23.6-32.8); Prothrombin Time 11.2 sec (9.1-11.1)
[2024-02-10 17:38] LABS: Absolute Lymphocyte Count 1.46 10^3/uL (1.2-3.4); Absolute Monocyte Count 1.68 10^3/uL (0.1-0.8); Absolute Neutrophil Count 7.96 10^3/uL (1.2-6.7)
[2024-02-10 17:39] LABS: Absolute Eosinophil Count 0.11 10^3/uL (0.0-0.7); Diff Comment Manual Differential
[2024-02-10 17:40] LABS: ALT 37 U/L (16-63); AST 42 U/L (15-37); Alkaline Phosphatase 156 U/L (46-116); Anion Gap 6.3 mmol/L (3-11); BUN 36 mg/dL (7-18); Bilirubin, Total 0.76 mg/dL (0.2-1.0); CO2 26.7 mmol/L (21.0-32.0); CREATININE 2.8 mg/dL (0.70-1.30); Calcium 9.1 mg/dL (8.5-10.1); Chloride 104 mmol/L (98-107); Estimated GFR 21.17 (mL/min/1.73m2); Glucose 118 mg/dL (74-106); Magnesium 2.1 mg/dL (1.8-2.4); Potassium 5.1 mmol/L (3.5-5.1); Sodium 137 mmol/L (136-145); Total Protein 6.9 g/dL (6.4-8.2)
--- NOTE | 2024-02-10 18:00 | DI.RAD_ITS ---
Exam(s) XR FOREARM LT EXAM: XR FOREARM LT CLINICAL HISTORY: Fall, Swelling, Drainage. TECHNIQUE: 2D digital imaging was performed. Two views. COMPARISON: No exams were available for comparison FINDINGS: BONES: No acute fracture is present. No bony destructive lesion is seen. Visualized portion of elbow is unremarkable. There are severe degenerative changes at the 1st carpal metacarpal joint. SOFT TISSUE: Marked diffuse soft tissue swelling seen from the hand through the level of the elbow. No foreign body. No abnormal soft tissue gas collection. Small soft tissue laceration noted in the mid forearm. IMPRESSION: Marked soft tissue swelling consistent with cellulitis. No bony abnormality. DATA REPOSITORY: RADIATION DOSE DELIVERED:
== END 2024-02-10 18:56 | disposition home or self-care (01) ==
PROVIDERS: Emergency Provider Registered Nurse Emergency; PCP Student in an Organized Health Care Education/Training Program
DX: M79.632 Pain in left forearm (principal); S50.12XD Contusion of left forearm, subsequent encounter; S42.352D Displaced comminuted fracture of shaft of humerus, left arm, subsequent encounter for fracture with routine healing; I25.10 Atherosclerotic heart disease of native coronary artery without angina pectoris; I25.2 Old myocardial infarction; E11.22 Type 2 diabetes mellitus with diabetic chronic kidney disease; I13.0 Hypertensive heart and chronic kidney disease with heart failure and stage 1 through stage 4 chronic kidney disease, or unspecified chronic kidney disease; N18.4 Chronic kidney disease, stage 4 (severe); Z95.5 Presence of coronary angioplasty implant and graft; Z79.01 Long term (current) use of anticoagulants; Z79.4 Long term (current) use of insulin; Z87.891 Personal history of nicotine dependence
CPT/HCPCS: 80053; 99284; 73090; 83735; 85025; 85610; 85730; 99283

== ENCOUNTER 2024-02-24 15:31 | Outpatient (CLI) | payer MEDICARE, SELFPAY ==
--- NOTE | 2024-02-24 13:05 | DI.RAD_ITS ---
Exam(s) XR SHOULDER LT COMPLETE 2+V EXAM: XR SHOULDER LT COMPLETE 2+V CLINICAL HISTORY: F/U FRACTURE. TECHNIQUE: 2D digital imaging was performed of the left shoulder. Two images were obtained. Grashe y and Y views were obtained. COMPARISON: CR XR SHOULDER LT COMPLETE 2+V from 02/06/2024 FINDINGS: BONES: There is again seen a comminuted fracture involving the proximal left humerus. The fracture i nvolves predominantly the surgical neck but also involves the greater tuberosity.. There is unchange d alignment of the fracture components. There is some callus formation about the fracture site. No bony destructive lesion is seen. JOINTS: There is persistent inferior subluxation of the humeral head relative to the glenoid. Degene rative changes are seen at the acromioclavicular joint. SOFT TISSUE: Normal. IMPRESSION: Stable alignment of the comminuted proximal left humeral fracture. Persistent inferior subluxation o f the humeral head relative to the glenoid. DATA REPOSITORY: RADIATION DOSE DELIVERED:
== END 2024-02-24 15:32 | disposition home or self-care (01) ==
LOC: DIORS 15:31
PROVIDERS: PCP Student in an Organized Health Care Education/Training Program; Referring Provider Student in an Organized Health Care Education/Training Program; Visit Provider Student in an Organized Health Care Education/Training Program
DX: S42.202A Unspecified fracture of upper end of left humerus, initial encounter for closed fracture; X58.XXXA Exposure to other specified factors, initial encounter
CPT/HCPCS: 99214; 73030

== ENCOUNTER 2024-03-16 07:48 | Outpatient (CLI) | payer MEDICARE, SELFPAY | END 2024-03-16 07:49 | disposition home or self-care (01) | LOC: DI.CARD 07:49 | PROVIDERS: PCP Student in an Organized Health Care Education/Training Program; Visit Provider Internal Medicine Cardiovascular Disease | CPT/HCPCS: 93010 ==

== ENCOUNTER → 2024-03-16 09:45 | Outpatient (BNVA) | payer MEDICARE, SELFPAY | PROVIDERS: PCP Student in an Organized Health Care Education/Training Program; Visit Provider Internal Medicine Cardiovascular Disease | DX: I48.91 Unspecified atrial fibrillation (principal); I25.10 Atherosclerotic heart disease of native coronary artery without angina pectoris | CPT/HCPCS: 99213 ==

== ENCOUNTER 2024-03-23 14:55 | Outpatient (CLI) | payer MEDICARE, SELFPAY ==
--- NOTE | 2024-03-23 13:00 | DI.RAD_ITS ---
Exam(s) XR SHOULDER LT COMPLETE 2+V EXAM: XR SHOULDER LT COMPLETE 2+V INDICATION: F/U FRACTURE. COMPARISON: CR XR SHOULDER LT COMPLETE 2+V from 02/24/2024 TECHNIQUE: 2D digital imaging was performed. Two views. FINDINGS: Stable alignment of proximal humeral fracture. Stable inferior subluxation of the humeral head with respect to the glenoid. DATA REPOSITORY: RADIATION DOSE DELIVERED:
== END 2024-03-23 14:56 | disposition home or self-care (01) ==
LOC: DIORS 14:55
PROVIDERS: PCP Student in an Organized Health Care Education/Training Program; Referring Provider Student in an Organized Health Care Education/Training Program; Visit Provider Student in an Organized Health Care Education/Training Program
DX: S42.352D Displaced comminuted fracture of shaft of humerus, left arm, subsequent encounter for fracture with routine healing; X58.XXXD Exposure to other specified factors, subsequent encounter
CPT/HCPCS: 99213; 73030

== ENCOUNTER → 2024-04-26 08:22 | Outpatient (BNVA) | payer MEDICARE, SELFPAY | PROVIDERS: PCP Student in an Organized Health Care Education/Training Program; Referring Provider Student in an Organized Health Care Education/Training Program; Visit Provider Nurse Practitioner Gerontology | DX: N50.82 Scrotal pain (principal); I86.1 Scrotal varices; R63.4 Abnormal weight loss | CPT/HCPCS: 99213 ==

== ENCOUNTER 2024-04-26 13:54 | Outpatient (REF) | payer MEDICARE, SELFPAY ==
[2024-04-26 16:08] LABS: TSH (W/Ref FT4) 0.58 uIU/mL (0.36-3.74)
== END 2024-04-26 13:55 | disposition home or self-care (01) ==
LOC: NCHCN 13:54
PROVIDERS: PCP Student in an Organized Health Care Education/Training Program; Visit Provider Student in an Organized Health Care Education/Training Program
DX: R68.83 Chills (without fever) (principal)
CPT/HCPCS: 84443

== ENCOUNTER 2024-05-11 15:56 | Outpatient (CLI) | payer MEDICARE, SELFPAY ==
--- NOTE | 2024-05-11 13:44 | DI.RAD_ITS ---
Exam(s) XR SHOULDER LT COMPLETE 2+V EXAM: XR SHOULDER LT COMPLETE 2+V CLINICAL HISTORY: F/U FRACTURE. TECHNIQUE: 2D digital imaging was performed of the left shoulder. Two images were obtained. Grashe y and Y views were obtained. COMPARISON: Comparison is made with prior examinations. FINDINGS: BONES: There has been no significant change in alignment of the fracture involving the surgical neck of the left humerus. There is some callus formation about the lateral aspect of the proximal humeral shaft. No bony destructive lesion is seen. JOINTS: There is inferior subluxation of the humeral head relative to the glenoid which appears uncha nged. Degenerative changes are seen at the acromioclavicular joint. SOFT TISSUE: Normal. IMPRESSION: There appears to be a stable alignment of both the proximal humeral fracture and the glenohumeral trever nt. DATA REPOSITORY: RADIATION DOSE DELIVERED:
--- NOTE | 2024-05-11 14:15 | DI.RAD_ITS ---
Exam(s) XR ANKLE LT COMPLETE EXAM: XR ANKLE LT COMPLETE CLINICAL HISTORY: ankle pain and swelling. TECHNIQUE: 2D digital imaging was performed. COMPARISON: No exams were available for comparison FINDINGS: 3 views There is soft tissue swelling on both sides the ankle as well as in the calf. There is vascular calc ification noted. There is no evidence of fracture or widening the ankle mortise. Talar dome appears unremarkable. Odell ne density normal. No osseous lesions. Moderate size enthesophyte is noted posteriorly at the Achil les insertion site upon the posterior calcaneus. There is no significant inferior calcaneal spur nor calcification within the plantar fascia. Bone density is normal. No osseous lesions and no evidence of osteomyelitis in the hindfoot. No tar tamara coalition. IMPRESSION: No acute osseous findings. Soft tissue swelling noted around both sides the ankle and with edema in the visualized calf also noted. There is vascular calcification. There is no evidence of obvious heel ulcer nor evidence of osteomye litis. DATA REPOSITORY: RADIATION DOSE DELIVERED:
== END 2024-05-11 15:57 | disposition home or self-care (01) ==
LOC: DIORS 15:56
PROVIDERS: PCP Student in an Organized Health Care Education/Training Program; Visit Provider Student in an Organized Health Care Education/Training Program
DX: S93.402A Sprain of unspecified ligament of left ankle, initial encounter; W10.9XXA Fall (on) (from) unspecified stairs and steps, initial encounter; S42.352A Displaced comminuted fracture of shaft of humerus, left arm, initial encounter for closed fracture
CPT/HCPCS: 99214; 73030; 73610

== ENCOUNTER 2024-05-24 01:28 | Outpatient (CLI) | payer MEDICARE, SELFPAY ==
--- NOTE | 2024-05-24 | DI.CT_ITS ---
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 TECHNIQUE: Imaging Protocol: Axial computed tomography images with coronal and sagittal reformatted images were created and reviewed. Oral: no COMPARISON: CT CT THORAX ABD/PEL CTA from 01/28/2024 FINDINGS: Lung Bases: No acute findings. Liver: Normal density. No suspicious mass. Gallbladder and biliary tract: No radiodense calculus or biliary dilation. Pancreas: Normal density. No abnormal calcifications or inflammatory process. Spleen: Normal. Kidneys: Normal size, contour and axis. No radiodense stones. No obstructive uropathy. No suspicious masses seen. Adrenal glands: No masses seen. Lymph nodes: Within normal limits. Vasculature: Endo vascular aorta bi-iliac stent is again noted. There has been further dilatation of the portion of the aneurysm outside of the stent, at the level of the renal arteries and above, now measuring 6.6 x 5.1 cm by 5.9 cm. Previously this area measured approximately 4.5 x 4.9 by 4.9 cm. The infrarenal portion of the aneurysm measures 10 x 10 cm compared with 9.4 x 8.8 cm. The iliac art eries are unchanged. Soft tissues: Small fat containing inguinal hernias. Bladder: No wall thickening. No mass or calculi. Bowel: No obstruction or bowel wall thickening. Diverticulosis without evidence of diverticulitis. Sigmoid anastomosis is unremarkable. Peritoneal cavity: No ascites. No focal collection. No mesenteric inflammatory response. Reproductive organs: Prostate mildly enlarged. Bones: Degenerative changes in the spine. IMPRESSION: Interval increase in size of both suprarenal and infrarenal portions of the abdominal aortic aneurysm . Endovascular aorta bi-iliac stent in place. RADIATION DOSE DELIVERED: Total DLP DATA REPOSITORY: All CT scans at this facility are submitted to the National Radiology Data Registry (NRDR) Dose Index Registry (DIR) with the [employer] (ACR). RADIATION OPTIMIZATION: All CT scans at this facility use at least one of these dose optimization te chniques: automated exposure control; mA and/or kV adjustment per patient size (includes targeted exa ms where dose is matched to clinical indication); or iterative reconstruction.
== END 2024-05-24 01:48 ==
LOC: DI 01:28
PROVIDERS: PCP Student in an Organized Health Care Education/Training Program; Visit Provider Nurse Practitioner Adult Health
DX: I71.43 Infrarenal abdominal aortic aneurysm, without rupture (principal)
CPT/HCPCS: 74176

== ENCOUNTER 2024-05-24 09:17 | Emergency (ER) | payer MEDICARE, SELFPAY ==
[2024-05-24 09:28] VITALS: BP 117/67; PULSE 60; RESP 18; TEMP 36.6; O2SAT 96
--- NOTE | 2024-05-24 09:41 | ED.GENADUL_ITS ---
Discharge Plan Disposition Patient Disposition: Home Condition: Stable Discharge Details Clinical Impression: Cat bite of right forearm Primary Care Provider: Maximino Lucero ED Provider: Ryan Dorman Home Meds and New Rx's Prescriptions: New amoxicillin-pot clavulanate 875-125 mg tablet 1 tab PO BID 10 Days Qty: 20 0RF Continued tamsulosin 0.4 mg capsule 0.4 mg PO DAILY insulin aspart U-100 [Novolog FlexPen U-100 Insulin] 100 unit/mL (3 mL) insulin pen 3 unit subcut TID amlodipine 2.5 mg tablet 5 mg PO DAILY allopurinol 100 mg tablet 100 mg PO .every other day insulin glargine 100 unit/mL solution 5 unit subcut QPM sitagliptin 50 mg tablet 50 mg PO DAILY magnesium oxide 400 mg magnesium capsule 400 mg PO BID Patient Comments: pt. reports he has been out of it nitroglycerin [Nitrostat] 0.4 mg tablet, sublingual 0.4 mg sublingual Q5 MIN PRN X3 PRN Rx Instructions: as a single dose; administer 5-10 minutes before situation known to precipitate angina attack apixaban 2.5 mg tablet 2.5 mg PO BID Patient Comments: 11/27/20 started at [facility] due to elevated creatinine 2.4 RH alogliptin 6.25 mg tablet 6.25 mg PO DAILY calcitriol 0.25 mcg capsule 0.25 mcg PO DAILY cholecalciferol (vitamin D3) 25 mcg (1,000 unit) capsule 25 mcg PO DAILY atorvastatin [Lipitor] 40 MG tablet 40 mg PO QPM acetaminophen [Acetaminophen Extra Strength] 500 mg Tablet 1,000 mg PO Q8H PRN cyanocobalamin (vitamin B-12) 1,000 mcg Tablet 1,000 mcg PO DAILY albuterol sulfate 90 mcg/actuation HFA aerosol inhaler 2 puff INHALATION ONCE PRN Patient Comments: INHALE TWO PUFFS BY MOUTH EVERY 4 TO 6 HOURS NEEDED metoprolol succinate 50 mg tablet extended release 24 hr 25 mg PO DAILY Qty: 0 0RF cyclobenzaprine 5 mg tablet 5 mg PO QHS PRN (Reason: muscle spasm) Qty: 10 0RF Discharge Instructions Instructions: Amoxicillin and Clavulanate, Animal Bites ED Additional Instructions: You were seen in the emergency department for the cat bite of your right forearm. Your vitals are good and you have no fever, I think we can forego blood work at this time and treat with antibiotic tablets, I have sent you with 2 tablets of Augmentin and sent the rest to your pharmacy here in [place]. [facility]. Please continue taking Tylenol for pain, the antibiotic should begin to really tackle the infection by day 3, if you are becoming much worse and getting feverish, nauseous, weak and having significant increase in redness and swelling despite treatment please return to the emergency department for reevaluation. Referrals: Maximino Lucero [Primary Care Provider] - Discharge Data Discharge Date/Time-TO BE ENTERED AT DEPARTURE: 05/24/24 10:17 HPI General Date/Time Provider Initiated Documentation: 05/24/24 09:41 . HPI Narrative: 88 year-old male presents to ED today by POV/ambulating with a chief complaint of cat bite to R forearm by his own cat- UTD on shots, with onset a week ago. Quality described as increased swelling diffusely to hand and distal forearm, with mild redness and pain, no radiation to large fluctuant swelling, red streaking up the arm, nausea, weakness, numbness. Severity is described as moderate. Palliating factors include nothing specific attempted- did not wash the wound right away. Provoking factors include nothing specific. Patient not anticoagulated. Related Data Home Medications ?Medication ?Instructions ?Recorded ?Confirmed atorvastatin 40 mg tablet (Lipitor) 40 mg PO QPM 09/20/17 05/24/24 magnesium oxide 400 mg PO BID 01/14/20 05/24/24 nitroglycerin 0.4 mg sublingual 0.4 mg sublingual Q5 MIN PRN X3 PRN 01/14/20 05/24/24 tablet (Nitrostat) acetaminophen 500 mg tablet 1,000 mg PO Q8H PRN 02/29/20 05/24/24 (Acetaminophen Extra Strength) cyanocobalamin (vitamin B-12) 1,000 mcg PO DAILY 03/01/20 05/24/24 1,000 mcg tablet tamsulosin 0.4 mg capsule 0.4 mg PO DAILY 11/27/20 05/24/24 apixaban 2.5 mg tablet 2.5 mg PO BID 05/31/21 05/24/24 albuterol sulfate 90 mcg/actuation 2 puff inhalation ONCE PRN 05/17/23 05/24/24 aerosol inhaler alogliptin 6.25 mg tablet 6.25 mg PO DAILY 10/07/23 05/24/24 calcitriol 0.25 mcg capsule 0.25 mcg PO DAILY 10/07/23 05/24/24 cholecalciferol (vitamin D3) 25 25 mcg PO DAILY 10/07/23 05/24/24 mcg (1,000 unit) capsule metoprolol succinate 50 mg 25 mg (1/2 x 50 mg) PO DAILY #0 10/07/23 05/24/24 tablet,extended release 24 hr tabs allopurinol 100 mg tablet 100 mg PO .every other day 01/21/24 05/24/24 insulin glargine 100 unit/mL 5 unit subcut QPM 01/21/24 05/24/24 subcutaneous solution sitagliptin 50 mg tablet 50 mg PO DAILY 01/21/24 05/24/24 cyclobenzaprine 5 mg tablet 5 mg PO QHS PRN muscle spasm #10 01/25/24 05/24/24 tabs amlodipine 2.5 mg tablet 5 mg PO DAILY 03/16/24 05/24/24 insulin aspart U-100 100 unit/mL 3 unit subcut TID 03/16/24 05/24/24 (3 mL) subcutaneous pen (Novolog FlexPen U-100 Insulin aspart) amoxicillin 875 mg-potassium 1 tab PO BID 10 days #20 tabs 05/24/24 clavulanate 125 mg tablet Previous Rx's ?Medication ?Instructions ?Recorded metoprolol succinate 50 mg 25 mg (1/2 x 50 mg) PO DAILY #0 10/07/23 tablet,extended release 24 hr tabs cyclobenzaprine 5 mg tablet 5 mg PO QHS PRN muscle spasm #10 01/25/24 tabs amoxicillin 875 mg-potassium 1 tab PO BID 10 days #20 tabs 05/24/24 clavulanate 125 mg tablet Allergies Allergy/AdvReac Type Severity Reaction Status Date / Time adhesive Allergy Severe significant Verified 05/24/24 09:32 skin reaction, swelling, erythema, discomfort neomycin Allergy Unknown Verified 05/24/24 09:32 General Stated Complaint: Cellulitis ASTON: 3 Review of Systems All systems reviewed & are unremarkable except as noted in HPI and below Exam Narrative Exam Narrative: GENERAL APPEARANCE: Well-nourished, non-toxic, awake and alert, atraumatic, no acute distress. SKIN: Warm, pink, dry, mild edema to right hand and forearm, R radial pulse 2+, sensation intact, bite wound is healed over, no lymphadenitis, right radial pulse 2+, no fluctuant swellings or abscess HEAD: Normocephalic, atraumatic, normal hair distribution for gender/age. EYES: Normal conjunctiva, no exudates on lids/lashes. ENT: Nares patent, no circumoral cyanosis, no facial swelling NECK: Supple, trachea midline, painless cervical ROM. LUNGS/CHEST: Non-labored respirations, normal A/P diameter, symmetrical expansion, no chest wall deformity HEART (CV/PV): Regular rate, R radial pulse 2+, no peripheral edema, no JVD. ABDOMEN: Soft, non-distended, no guarding. MSK: Normal ROM, no swelling/deformity to bilateral UEs or LEs, moving all extremities without weakness, no cyanosis, spine midline without tenderness, normal curvature. NEURO: Mental Status AAOx4 - alert to person, place, time, events No facial droop, no forehead involvement. Motor: No focal weakness - strength 5/5 in bilateral UEs and LEs, proximal and distal, symmetric. Sensory: sensation intact to light touch globally. Gait normal: patient ambulated without ataxia into ED room. PSYCH: euthymic, cooperative, pleasant, appropriate speech Course Vital Signs Vital signs: Vital Signs Temperature 36.6 C 05/24/24 09:28 Pulse 60 05/24/24 09:28 Respiratory Rate 18 05/24/24 09:28 Blood Pressure 117/67 05/24/24 09:28 Pulse Oximetry 96 05/24/24 09:28 Temperature 36.6 C 05/24/24 09:28 Temperature Source Temporal Artery Scan 05/24/24 09:28 Pulse 60 05/24/24 09:28 Respiratory Rate 18 05/24/24 09:28 Blood Pressure 117/67 05/24/24 09:28 Blood Pressure Position Sitting 05/24/24 09:28 Pulse Oximetry 96 05/24/24 09:28 Oxygen Delivery Method Room Air 05/24/24 09:28 Oxygen Flow Rate 0 05/24/24 09:28 Pain Level 8 05/24/24 09:28 Medical Decision Making This dictation utilizes [id number] dictation software and may contain unedited grammatical errors. 88 year-old male presents to ED today by POV/ambulating with a chief complaint of cat bite to R forearm by his own cat- UTD on shots, with onset a week ago. Quality described as increased swelling diffusely to hand and distal forearm, with mild redness and pain, no radiation to large fluctuant swelling, red streaking up the arm, nausea, weakness, numbness. Severity is described as moderate. Palliating factors include nothing specific attempted- did not wash the wound right away. Provoking factors include nothing specific. Patients' medical history: Hyperlipidemia, atrial flutter, AAA, CHF, CKD stage IV, coronary artery disease, type 2 diabetes mellitus. Family and social history: noncontributory. Pertinent exam findings / vital signs include mild edema to right hand and forearm, R radial pulse 2+, sensation intact, bite wound is healed over, no lymphadenitis, right radial pulse 2+, no fluctuant swellings or abscess, nontoxic vitals and afebrile. Differential / pathologies of concern include cellulitis, cat bite, abscess less likely. Diagnostic studies of: -None. Interventions of: -Discussed treating with empiric antibiotics prior to significant workup with hopeful improvement by day 3 but strict return criteria, Rx for Augmentin. ED Course/Assessment/Plan: 88-year-old male presents with minor cat bite and mild cellulitis on exam that is 1 week old, I did start him on Augmentin for cat bite recommend he return i mmediately for any acute worsening despite treatment especially with red streaking, fever, large red fluctuant swellings to any area, patient was engaged in shared decision making with plan for p.o. antibiotic trial prior to significant workup, recommend he [facility] with [facility]. Findings not consistent with abscess, lymphadenitis, sepsis, fever. Disposition of cat bite of right forearm. Patient verbalized understanding of the plan and return to ED criteria and engaged in shared decision making. Medical Records Medical records reviewed: Yes I reviewed the patient's medical records. Quality:SDOH Health Related Social Needs: No Data to Display PFSH All Active Problems (Updated 05/24/24 @ 09:59 by QUINN Hui) Cat bite of right forearm (Acute) Left ankle sprain (Acute 05/03/24) Weight loss (Acute) Deficit in activities of daily living (ADL) (Acute) Hard of hearing (Acute) Financial difficulties (Acute) Palliative care patient (Acute) ACP (advance care planning) (Acute) Fracture of proximal end of left humerus (Acute ~02/06/24) Gout of left knee (Acute) Trigger thumb of left hand (Acute) Acute kidney injury superimposed on CKD (Acute) Severe sepsis (Acute) Chronic kidney disease, stage 4 (severe) (Acute) HTN (hypertension) (Acute) CAD (coronary artery disease) (Chronic) Dermatitis (Acute) Atrial fibrillation (Chronic) Chest pain (Acute) Acute non-ST elevation myocardial infarction (NSTEMI) (Acute) Wound dehiscence, surgical (Acute) Type 2 diabetes mellitus (Chronic) Fatty liver (Acute) Chronic kidney disease, stage 3 (Chronic) Mass of salivary gland (Acute) Ischemic cardiomyopathy (Chronic) Skin lesion of scalp (Acute) Anemia (Chronic) Hearing impairment (Acute) Medical History HLD (hyperlipidemia) Former smoker Balanitis Atrial flutter Edema Cruz's disease Phimosis (10/17/15) Erectile dysfunction AAA (abdominal aortic aneurysm) Hypomagnesemia CHF (congestive heart failure) Renal insufficiency 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) Diverticulitis of large intestine with abscess Hypercholesterolemia Diabetes mellitus Myocardial infarct Phimosis Surgical History Status post colostomy takedown (~03/01/20) S/P left hemicolectomy (~07/19/18) H/O phimosis s/p repair History of heart artery stent S/P hernia repair History of endovascular stent graft for abdominal aortic aneurysm (AAA) Social History Smoking/Tobacco Use Status: Former Tobacco Use Quit Date: 01/03/17 Tobacco: How many years used: 60 Smoking risk assessment performed?: Yes Alcohol Intake: former Drug use: Never Substance use type: does not use Housing: house Do you feel safe at home: Yes Do you feel safe in your relationship?: Yes Additional Social history: at side
[2024-05-24 10:10] VITALS: BP 117/67; PULSE 60; RESP 18; TEMP 36.6; O2SAT 96
[2024-05-24 10:15] VITALS: BP 116/58; PULSE 60; RESP 18; O2SAT 98
[2024-05-24] MEDS: Amox. 875/Clav. 125, 2 TABS/BTL 1 TAB PO (10:16)
== END 2024-05-24 10:17 | disposition home or self-care (01) ==
LOC: ER 10:07
PROVIDERS: Emergency Provider Physician Assistant; PCP Student in an Organized Health Care Education/Training Program
DX: S51.052A Open bite, left elbow, initial encounter (principal); W55.01XA Bitten by cat, initial encounter
CPT/HCPCS: 99283; 99284

== ENCOUNTER 2024-06-11 12:27 | Emergency (ER) | payer MEDICARE, SELFPAY ==
[2024-06-11] VITALS (10 sets, daily range): BP systolic 120–164; BP diastolic 67–72; PULSE 43–54; RESP 13–25; TEMP 36.4; O2SAT 96–100
--- NOTE | 2024-06-11 13:29 | W.ED.GENAD ---
Discharge Plan Disposition Patient Disposition: Home Condition: Stable Discharge Details Clinical Impression: RSV bronchitis, Fall, Contusion of rib on right side Primary Care Provider: Maximino Lucero ED Provider: Han Whipple Home Meds and New Rx's Prescriptions: New lidocaine 5 % ointment 1 applic topical DAILY PRN (Reason: pain) Qty: 30 0RF Continued tamsulosin 0.4 mg capsule 0.4 mg PO DAILY insulin aspart U-100 [Novolog FlexPen U-100 Insulin] 100 unit/mL (3 mL) insulin pen 3 unit subcut TID amlodipine 2.5 mg tablet 5 mg PO DAILY allopurinol 100 mg tablet 100 mg PO .every other day insulin glargine 100 unit/mL solution 5 unit subcut QPM sitagliptin 50 mg tablet 50 mg PO DAILY magnesium oxide 400 mg magnesium capsule 400 mg PO BID Patient Comments: pt. reports he has been out of it nitroglycerin [Nitrostat] 0.4 mg tablet, sublingual 0.4 mg sublingual Q5 MIN PRN X3 PRN Rx Instructions: as a single dose; administer 5-10 minutes before situation known to precipitate angina attack apixaban 2.5 mg tablet 2.5 mg PO BID Patient Comments: 11/27/20 started at [facility] [place] due to elevated creatinine 2.4 RH alogliptin 6.25 mg tablet 6.25 mg PO DAILY calcitriol 0.25 mcg capsule 0.25 mcg PO DAILY cholecalciferol (vitamin D3) 25 mcg (1,000 unit) capsule 25 mcg PO DAILY atorvastatin [Lipitor] 40 MG tablet 40 mg PO QPM acetaminophen [Acetaminophen Extra Strength] 500 mg Tablet 1,000 mg PO Q8H PRN cyanocobalamin (vitamin B-12) 1,000 mcg Tablet 1,000 mcg PO DAILY metoprolol succinate 50 mg tablet extended release 24 hr 25 mg PO DAILY Qty: 0 0RF Discontinued albuterol sulfate 90 mcg/actuation HFA aerosol inhaler 2 puff INHALATION ONCE PRN Patient Comments: INHALE TWO PUFFS BY MOUTH EVERY 4 TO 6 HOURS NEEDED cyclobenzaprine 5 mg tablet 5 mg PO QHS PRN (Reason: muscle spasm) Qty: 10 0RF Discharge Instructions Instructions: Preventing falls in adults, Rib Fracture or Bruised Rib ED, Preventing Falls ED, RSV in adults - Discharge instructions Additional Instructions: Please use incentive spirometer every 2 hours while awake for the next 1 week. Please take tylenol (acetaminophen) 650 mg every 6 hours as needed for pain. Be sure to avoid any other medications that containe tylenol (acetaminophen). Please follow-up with your primary care physician. Return to the emergency department immediately for any worsening or new concerning symptoms. Referrals: Maximino Lucero [Primary Care Provider] - [facility] General Date/Time Provider Initiated Documentation: 06/11/24 13:00. Limitations to Documentation: no limitations. Information obtained by: patient. HPI Narrative: HISTORY OF PRESENT ILLNESS The patient is an 88-year-old male with coronary artery disease, hypertension, chronic kidney disease, diabetes, and ischemic cardiomyopathy. He presents with a 5-day history of productive cough with greenish-yellow sputum, without fever or shortness of breath. Four days ago, he fell in the bathroom, impacting his right ribs, causing severe pain exacerbated by deep inhalation, disrupting sleep, and managed with Tylenol. He has not taken ibuprofen today. He has a history of a shoulder injury from 02/2024, currently in rehabilitation. He has a history of diverticulitis with a rupture and colostomy, now reversed. He reports leg swelling managed with compression stockings, though new stockings are too tight. He also has coccyx and hip pain, limiting standing to 10 minutes. He had an aortic stent placed in his abdomen years ago. Related Data Home Medications ?Medication ?Instructions ?Recorded ?Confirmed atorvastatin 40 mg tablet (Lipitor) 40 mg PO QPM 09/20/17 06/11/24 magnesium oxide 400 mg PO BID 01/14/20 06/11/24 nitroglycerin 0.4 mg sublingual 0.4 mg sublingual Q5 MIN PRN X3 PRN 01/14/20 06/11/24 tablet (Nitrostat) acetaminophen 500 mg tablet 1,000 mg PO Q8H PRN 02/29/20 06/11/24 (Acetaminophen Extra Strength) cyanocobalamin (vitamin B-12) 1,000 mcg PO DAILY 03/01/20 06/11/24 1,000 mcg tablet tamsulosin 0.4 mg capsule 0.4 mg PO DAILY 11/27/20 06/11/24 apixaban 2.5 mg tablet 2.5 mg PO BID 05/31/21 06/11/24 alogliptin 6.25 mg tablet 6.25 mg PO DAILY 10/07/23 06/11/24 calcitriol 0.25 mcg capsule 0.25 mcg PO DAILY 10/07/23 06/11/24 cholecalciferol (vitamin D3) 25 25 mcg PO DAILY 10/07/23 06/11/24 mcg (1,000 unit) capsule metoprolol succinate 50 mg 25 mg (1/2 x 50 mg) PO DAILY #0 10/07/23 06/11/24 tablet,extended release 24 hr tabs allopurinol 100 mg tablet 100 mg PO .every other day 01/21/24 06/11/24 insulin glargine 100 unit/mL 5 unit subcut QPM 01/21/24 06/11/24 subcutaneous solution sitagliptin 50 mg tablet 50 mg PO DAILY 01/21/24 06/11/24 amlodipine 2.5 mg tablet 5 mg PO DAILY 03/16/24 06/11/24 insulin aspart U-100 100 unit/mL 3 unit subcut TID 03/16/24 06/11/24 (3 mL) subcutaneous pen (Novolog FlexPen U-100 Insulin aspart) lidocaine 5 % topical ointment 1 applic topical DAILY PRN pain 06/11/24 #30 grams Previous Rx's ?Medication ?Instructions ?Recorded metoprolol succinate 50 mg 25 mg (1/2 x 50 mg) PO DAILY #0 10/07/23 tablet,extended release 24 hr tabs lidocaine 5 % topical ointment 1 applic topical DAILY PRN pain 06/11/24 #30 grams Allergies Allergy/AdvReac Type Severity Reaction Status Date / Time adhesive Allergy Severe significant Verified 06/11/24 12:41 skin reaction, swelling, erythema, discomfort neomycin Allergy Unknown Verified 06/11/24 12:41 General Stated Complaint: Fall/Non TraumaCriteria ASTON: 3 Review of Systems Narrative: REVIEW OF SYSTEMS Negative for fever, shortness of breath, or abdominal pain. All systems reviewed & are unremarkable except as noted in HPI and below Exam Narrative Exam Narrative: PHYSICAL EXAM General Appearance: Normal. Vital signs: Within normal limits. HEENT: Within normal limits. Respiratory: Rhonchi in lungs Cardiovascular: regular rate and rhythm, no murmurs. Gastrointestinal: normal, no tenderness. Back, Musculoskeletal: no tenderness. Extremities: 1+ pitting edema in both legs up to shins. Skin: Warm and dry, no rash. Neurological: Normal. Other observations: Chest: no pain on AP compression, no bruising, tenderness over 4th and 5th ribs anterolaterally. Course Vital Signs Vital signs: Vital Signs Temperature 36.4 C L 06/11/24 12:38 Pulse 54 L 06/11/24 12:38 Respiratory Rate 16 06/11/24 12:38 Blood Pressure 120/72 06/11/24 12:38 Pulse Oximetry 96 06/11/24 12:38 Temperature 36.4 C L 06/11/24 12:38 Pulse 54 L 06/11/24 12:38 Respiratory Rate 16 06/11/24 12:38 Blood Pressure 120/72 06/11/24 12:38 Pulse Oximetry 96 06/11/24 12:38 Medical Decision Making ASSESSMENT AND PLAN Initial Assessment: 88-year-old male with a history of coronary artery disease, hypertension, chronic kidney disease, diabetes, and ischemic cardiomyopathy, presenting with right rib pain following a fall and a productive cough. Differential Diagnosis: - Rib contusion: Pain in right ribs following a fall, exacerbated by coughing and deep breaths. Tenderness over 4th and 5th ribs. Unremarkable chest x-ray. Apply lidocaine patch and provide Tylenol for pain. - RSV bronchitis: Productive cough with greenish-yellow sputum for 5 days. Positive for RSV, negative for influenza and COVID-19. Oxygen saturation 99%, hemodynamically stable. Discharge with incentive spirometry and follow-up instructions. - Chronic leg edema: 1+ pitting edema in both legs up to shins. Continue wearing compression socks. ED Course: - Physical exam: Regular heart rate and rhythm, rhonchi in lungs, tenderness over right 4th and 5th ribs, 1+ pitting edema in legs. - Chest x-ray with rib series: Unremarkable, no acute pulmonary findings. - Diagnostic tests: Positive for RSV, negative for influenza and COVID-19. - Treatment: Lidocaine patch, Tylenol, incentive spirometry. - Patient education: Discussed results and follow-up instructions. - incentive spirometer Final Assessment: Patient with rib contusion and RSV bronchitis, stable for discharge with pain management and respiratory support. Clinical Impression: - Rib contusion - RSV bronchitis - Chronic leg edema Disposition: - Discharge - Follow-Up: Encourage follow-up with primary care physician and return for any worsening or new concerning symptoms. MDM Components Evaluation: - Number of Differential Diagnoses or Management Options: Rib contusion, RSV bronchitis, chronic leg edema. - Amount and Complexity of Data Reviewed: Physical exam, chest x-ray, RSV, influenza, and COVID-19 tests. - Risk of Complication and Morbidity or Mortality: Moderate risk due to age and comorbidities, but stable condition and appropriate outpatient management plan. This document was written with the assistance of RFANKY Harrell. The patient consented to its use. Lab Data Lab results reviewed: Yes I reviewed the patient's lab results. Labs: Laboratory Tests Range/Units 06/11/24 13:30 COVID-19 Source Nasopharynx SARS-CoV-2 (PCR) (Negative) Negative Influenza Type A (PCR) (Negative) Negative Influenza Type B (PCR) (Negative) Negative RSV (PCR) (Negative) Positive A* Quality:SDOH Health Related Social Needs: No Data to Display PFSH All Active Problems (Updated 06/11/24 @ 14:33 by Han Whipple MD) Contusion of rib on right side (Acute) Fall (Acute) RSV bronchitis (Acute) Cat bite of right forearm (Acute) Left ankle sprain (Acute 05/03/24) Weight loss (Acute) Deficit in activities of daily living (ADL) (Acute) Hard of hearing (Acute) Financial difficulties (Acute) Palliative care patient (Acute) ACP (advance care planning) (Acute) Fracture of proximal end of left humerus (Acute ~02/06/24) Gout of left knee (Acute) Trigger thumb of left hand (Acute) Acute kidney injury superimposed on CKD (Acute) Severe sepsis (Acute) Chronic kidney disease, stage 4 (severe) (Acute) HTN (hypertension) (Acute) CAD (coronary artery disease) (Chronic) Dermatitis (Acute) Atrial fibrillation (Chronic) Chest pain (Acute) Acute non-ST elevation myocardial infarction (NSTEMI) (Acute) Wound dehiscence, surgical (Acute) Type 2 diabetes mellitus (Chronic) Fatty liver (Acute) Chronic kidney disease, stage 3 (Chronic) Mass of salivary gland (Acute) Ischemic cardiomyopathy (Chronic) Skin lesion of scalp (Acute) Anemia (Chronic) Hearing impairment (Acute) Medical History HLD (hyperlipidemia) Former smoker Balanitis Atrial flutter Edema Cruz's disease Phimosis (10/17/15) Erectile dysfunction AAA (abdominal aortic aneurysm) Hypomagnesemia CHF (congestive heart failure) Renal insufficiency 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) Diverticulitis of large intestine with abscess Hypercholesterolemia Diabetes mellitus Myocardial infarct Phimosis Surgical History Status post colostomy takedown (~03/01/20) S/P left hemicolectomy (~07/19/18) H/O phimosis s/p repair History of heart artery stent S/P hernia repair History of endovascular stent graft for abdominal aortic aneurysm (AAA) Social History Smoking/Tobacco Use Status: Former Tobacco Use Quit Date: 01/03/17 Tobacco: How many years used: 60 Smoking risk assessment performed?: Yes Alcohol Intake: former Drug use: Never Substance use type: does not use Housing: house Do you feel safe at home: Yes Do you feel safe in your relationship?: Yes Additional Social history: at side
--- NOTE | 2024-06-11 13:51 | DI.RAD_ITS ---
Exam(s) XR RIBS RT W PA LAT CHEST CLINICAL HISTORY: fall, pain rt 4-5th ribs. COMPARISON: CR XR CHEST 1V IN DI DEPT from 02/06/2024 TECHNIQUE:: PA and lateral views of the chest and four views of the right ribs were performed. FINDINGS: LUNGS:Clear. No pleural abnormality seen. HEART: Mildly enlarged MEDIASTINUM: The aorta is calcified. BONES: No displaced rib fracture is seen. No thoracic compression fracture. No bony destructive les ion is seen. Degenerative changes at the AC joint. IMPRESSION: 1. Unremarkable radiographic appearance of the right ribs. 2. No acute pulmonary findings.
[2024-06-11] MEDS: Lidocaine 5% Patch 1 PATCH TP (13:59)
[2024-06-11] MEDS: Acetaminophen 325 MG TAB 650 MG PO (13:59)
[2024-06-11 14:12] LABS: COVID-19 PCR Negative (Negative); Influenza A PCR Negative (Negative); Influenza B PCR Negative (Negative)
[2024-06-11 14:14] LABS: RSV PCR Positive (Negative); Source Nasopharynx
== END 2024-06-11 14:54 | disposition home or self-care (01) ==
PROVIDERS: Emergency Provider Student in an Organized Health Care Education/Training Program; PCP Student in an Organized Health Care Education/Training Program
DX: S20.211A Contusion of right front wall of thorax, initial encounter (principal); W18.11XA Fall from or off toilet without subsequent striking against object, initial encounter; R05.1 Acute cough; J20.5 Acute bronchitis due to respiratory syncytial virus
CPT/HCPCS: 87637; 99283; 71046; 71100; 99284

== ENCOUNTER 2024-08-10 15:19 | Outpatient (CLI) | payer MEDICARE, SELFPAY ==
--- NOTE | 2024-08-10 13:45 | DI.RAD_ITS ---
Exam(s) XR SHOULDER LT COMPLETE 2+V EXAM: XR SHOULDER LT COMPLETE 2+V CLINICAL HISTORY: F/U FRACTURE. TECHNIQUE: 2D digital imaging was performed of the left shoulder. Three images were obtained. Gras hey and Y views were obtained. COMPARISON: CR XR SHOULDER LT COMPLETE 2+V from 05/11/2024 FINDINGS: BONES: There has been no change in alignment of the fracture involving the surgical neck of the left humerus. The fracture line is still visualized. No new fracture is identified. No bony destructive lesion is seen. JOINTS: There is inferior subluxation of the humeral head relative to the glenoid on the Grashey view . This is similar to the prior examination. Degenerative changes are seen at the acromioclavicular joint. SOFT TISSUE: Normal. IMPRESSION: Stable appearance of the left shoulder compared to the prior examination from 05/11/2024. DATA REPOSITORY: RADIATION DOSE DELIVERED:
== END 2024-08-10 15:20 | disposition home or self-care (01) ==
LOC: DIORS 15:20
PROVIDERS: PCP Student in an Organized Health Care Education/Training Program; Visit Provider Student in an Organized Health Care Education/Training Program
DX: S42.352D Displaced comminuted fracture of shaft of humerus, left arm, subsequent encounter for fracture with routine healing (principal); X58.XXXD Exposure to other specified factors, subsequent encounter
CPT/HCPCS: 99213; 73030

== ENCOUNTER 2024-08-23 02:12 | Inpatient (IN) | payer OTHER, SELFPAY ==
[2024-08-23] VITALS (27 sets, daily range): BP systolic 104–154; BP diastolic 46–92; PULSE 50–61; RESP 12–26; TEMP 36.2–36.8; O2SAT 94–99
--- NOTE | 2024-08-23 02:15 | DI.CT_ITS ---
Exam(s) CT CHEST WO EXAM: CT CHEST WO CLINICAL HISTORY: fell and hit anterior ribs, now pain. TECHNIQUE: Imaging protocol: Axial computed tomography images were obtained and coronal and sagittal reformatted images were created and reviewed. Lung Computer Aided Detection (CAD) was utilized. COMPARISON: CT NECK WITH CONTRAST from 10/22/[address] CHEST/ABD/PEL WO from 05/17/[address] THORAX ABD/PEL CTA from 01/28/2024 CR XR SHOULDER LT COMPLETE 2+V from 05/11/[address] ABDOMEN PELVIS WO from 05/24/2024 CR XR RIBS RT W PA LAT CHEST from 06/11/2024 CR XR SHOULDER LT COMPLETE 2+V from 08/10/2024 FINDINGS: Tracheobronchial tree: Patent where visualized. No bronchiectasis is present. Pulmonary parenchyma: There is a small left pleural effusion and subjacent infiltrate which may repre sent atelectasis or pneumonia. Mild dependent atelectatic changes are seen in the lung bases. Mediastinum and Yudi: No dominant adenopathy or fluid collection. The esophagus is unremarkable. Thyroid gland: Unremarkable. Pleura: No right pleural effusion. No pneumothorax. Heart: Cardiomegaly. Three vessel coronary artery calcification is present. No pericardial effusion . Aorta: The ascending thoracic aorta measures 4.5 x 4.3 cm the descending thoracic aorta measures 3.9 x 3.9 cm. Atherosclerotic calcification is present. Upper abdomen: The patient has a known abdominal aortic aneurysm which is incompletely imaged on thi s examination. The visualized portion is unchanged compared to the examination from 05/24/2024. Usin g similar measuring techniques the aneurysm measures 6.0 cm (series 2, image 175). This is unchanged compared to the prior examination. There do appear to be small gallstones present. There is divert iculosis seen in the colon but no evidence of acute diverticulitis. Lymph nodes: Within normal limits. Soft tissues: There is again seen a mass in the right neck. It is incompletely visualized and measur es 2.2 x 2.7 cm (series 2, image 7).. This has shown decrease in size previously measuring 2.7 x 2.8 cm. Mild gynecomastia. Bones:There is a old left humeral fracture deformity. There is an acute nondisplaced fracture of the anterior aspect of the right 6th rib. There are old bilateral rib fracture deformities. IMPRESSION: 1. There is an acute nondisplaced fracture of the anterior aspect of the right 6th rib. 2. No pneumothorax. No right pleural effusion. 3. Small left pleural effusion and subjacent infiltrate which may represent atelectasis or pneumonia. 4. Interval decrease in size of the mass in the right neck. 5. The preliminary V Rad report was reviewed. RADIATION DOSE DELIVERED: 249.68mGy.cm Total DLP 249.68mGy.cm Total DLP DATA REPOSITORY: All CT scans at this facility are submitted to the National Radiology Data Registry (NRDR) Dose Index Registry (DIR) with the [employer] (ACR). RADIATION OPTIMIZATION: All CT scans at this facility use at least one of these dose optimization te chniques: automated exposure control; mA and/or kV adjustment per patient size (includes targeted exa ms where dose is matched to clinical indication); or iterative reconstruction.
--- NOTE | 2024-08-23 02:15 | RT.EKG_ITS ---
APPROVED REPORT Exam: Resting ECG Reason for Exam: chest pain Patient Location: E HR:58 bpm ECG Measurements Heart Rate 58 AXIS ND 304 P -25 QRSd 107 QRS -28 QT 479 T 33 QTc 472 Conclusion Sinus bradycardia...rate< 60 Prolonged ND interval...ND >220, V-rate 50- 90 Physician: no stemi
--- NOTE | 2024-08-23 02:36 | ED.GENADUL_ITS ---
Discharge Plan Disposition Patient Disposition: Admit to [facility] Condition: Serious Discharge Details Clinical Impression: Closed rib fracture, Acute cholecystitis, Aortic aneurysm, thoracic, Abdominal aortic aneurysm Primary Care Provider: Maximino Lucero ED Provider: Ryan Stafford Home Meds and New Rx's Prescriptions: No Action tamsulosin 0.4 mg capsule 0.4 mg PO DAILY insulin aspart U-100 [Novolog FlexPen U-100 Insulin] 100 unit/mL (3 mL) insulin pen 3 unit subcut TID amlodipine 2.5 mg tablet 5 mg PO DAILY allopurinol 100 mg tablet 100 mg PO .every other day insulin glargine 100 unit/mL solution 5 unit subcut QPM sitagliptin 50 mg tablet 50 mg PO DAILY morphine concentrate 100 mg/5 mL (20 mg/mL) solution 40 mg PO Q1-4H MDD 480 PRN (Reason: pain) Qty: 15 0RF Rx Instructions: Emergency use in case of abdominal aortic aneurysm rupture magnesium oxide 400 mg magnesium capsule 400 mg PO BID Patient Comments: pt. reports he has been out of it nitroglycerin [Nitrostat] 0.4 mg tablet, sublingual 0.4 mg sublingual Q5 MIN PRN X3 PRN Rx Instructions: as a single dose; administer 5-10 minutes before situation known to precipitate angina attack apixaban 2.5 mg tablet 2.5 mg PO BID Patient Comments: 11/27/20 started at [facility] due to elevated creatinine 2.4 RH alogliptin 6.25 mg tablet 6.25 mg PO DAILY calcitriol 0.25 mcg capsule 0.25 mcg PO DAILY cholecalciferol (vitamin D3) 25 mcg (1,000 unit) capsule 25 mcg PO DAILY atorvastatin [Lipitor] 40 MG tablet 40 mg PO QPM acetaminophen [Acetaminophen Extra Strength] 500 mg Tablet 1,000 mg PO Q8H PRN cyanocobalamin (vitamin B-12) 1,000 mcg Tablet 1,000 mcg PO DAILY metoprolol succinate 50 mg tablet extended release 24 hr 25 mg PO DAILY Qty: 0 0RF lidocaine 5 % ointment 1 applic topical DAILY PRN (Reason: pain) Qty: 30 0RF HPI General Date/Time Provider Initiated Documentation: 08/23/24 02:15 . HPI Narrative: 88-year-old male who is a palliative care patient who is DNR/DNI with a past medical history of a chronically leaking AAA, with endovascular stent graft, myocardial infarction with stent, diabetes, severe CKD, CHF, ischemic cardiomyopathy, previous colectomy, high cholesterol, atrial fibrillation on Eliquis, who presents today for evaluation of pleuritic chest pain. Patient states that 2 weeks ago he was carrying some cardboard, he fell and the cardboard hit on his anterior chest. Since then he has been having mild pain in his anterior chest whenever he breathes. It is worse when he breathes. It is not present when he is not breathing. He denies any cough, fever or chills. Pain is achy in nature with some stabbing component. He denies significant shortness of breath. He denies numbness or tingling or weakness. No other complaints at this time. Related Data Home Medications ?Medication ?Instructions ?Recorded ?Confirmed atorvastatin 40 mg tablet (Lipitor) 40 mg PO QPM 09/20/17 08/23/24 magnesium oxide 400 mg PO BID 01/14/20 08/23/24 nitroglycerin 0.4 mg sublingual 0.4 mg sublingual Q5 MIN PRN X3 PRN 01/14/20 08/23/24 tablet (Nitrostat) acetaminophen 500 mg tablet 1,000 mg PO Q8H PRN 02/29/20 08/23/24 (Acetaminophen Extra Strength) cyanocobalamin (vitamin B-12) 1,000 mcg PO DAILY 03/01/20 08/23/24 1,000 mcg tablet tamsulosin 0.4 mg capsule 0.4 mg PO DAILY 11/27/20 08/23/24 apixaban 2.5 mg tablet 2.5 mg PO BID 05/31/21 08/23/24 alogliptin 6.25 mg tablet 6.25 mg PO DAILY 10/07/23 08/23/24 calcitriol 0.25 mcg capsule 0.25 mcg PO DAILY 10/07/23 08/23/24 cholecalciferol (vitamin D3) 25 25 mcg PO DAILY 10/07/23 08/23/24 mcg (1,000 unit) capsule metoprolol succinate 50 mg 25 mg (1/2 x 50 mg) PO DAILY #0 10/07/23 08/23/24 tablet,extended release 24 hr tabs allopurinol 100 mg tablet 100 mg PO .every other day 01/21/24 08/23/24 insulin glargine 100 unit/mL 5 unit subcut QPM 01/21/24 08/23/24 subcutaneous solution sitagliptin 50 mg tablet 50 mg PO DAILY 01/21/24 08/23/24 amlodipine 2.5 mg tablet 5 mg PO DAILY 03/16/24 08/23/24 insulin aspart U-100 100 unit/mL 3 unit subcut TID 03/16/24 08/23/24 (3 mL) subcutaneous pen (Novolog FlexPen U-100 Insulin aspart) lidocaine 5 % topical ointment 1 applic topical DAILY PRN pain 06/11/24 08/23/24 #30 grams morphine concentrate 100 mg/5 mL 40 mg (2 mL) PO Q1-4H PRN pain #15 07/15/24 08/23/24 (20 mg/mL) oral solution mL Previous Rx's ?Medication ?Instructions ?Recorded metoprolol succinate 50 mg 25 mg (1/2 x 50 mg) PO DAILY #0 10/07/23 tablet,extended release 24 hr tabs lidocaine 5 % topical ointment 1 applic topical DAILY PRN pain 06/11/24 #30 grams morphine concentrate 100 mg/5 mL 40 mg (2 mL) PO Q1-4H PRN pain #15 07/15/24 (20 mg/mL) oral solution mL Allergies Allergy/AdvReac Type Severity Reaction Status Date / Time adhesive Allergy Severe significant Verified 08/23/24 02:22 skin reaction, swelling, erythema, discomfort neomycin Allergy Unknown Verified 08/23/24 02:22 General Stated Complaint: Chest Pain ASTON: 2 Exam Narrative Exam Narrative: 1.Const: Well-nourished, Well-developed, appearing stated age 2.Eyes: PERRL, no conjunctival injection, and symmetrical lids. 3.ENT: Atraumatic external nose and ears. Moist MM. Neck: Symmetric, trachea midline, No thyromegaly. 4.CVS: +S1/S2, Peripheral pulses 2+ and equal in all extremities. Brisk capillary refill in all extremities. 5.RESP: Unlabored respiratory effort. Rhonchorous breath sounds throughout. 6.GI: Soft, Nontender/Nondistended, No hepatosplenomegaly. No guarding or rebound. 7.MSK: Normocephalic/Atraumatic, Extremities w/o deformity or ttp No cyanosis or clubbing, Normal movement of all extremities. Mild tenderness on palpation of the anterior chest wall. 8.Skin: Warm, Dry. No rashes or lesions. 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 Sensation grossly intact, no focal neurologic deficits. 10.Psych: (AAO) x3. Appropriate mood and affect Course Vital Signs Vital signs: Vital Signs Pulse 61 08/23/24 02:16 Respiratory Rate 16 08/23/24 02:16 Blood Pressure 140/74 08/23/24 02:16 Pulse Oximetry 99 08/23/24 02:16 Pulse 61 08/23/24 02:16 Respiratory Rate 16 08/23/24 02:16 Blood Pressure 140/74 08/23/24 02:16 Pulse Oximetry 99 08/23/24 02:16 Pain Level 6 08/23/24 02:16 Medical Decision Making 88-year-old male who is a palliative care patient who is DNR/DNI with a past medical history of a chronically leaking AAA, with endovascular stent graft, myocardial infarction with stent, diabetes, severe CKD, CHF, ischemic cardiomyopathy, previous colectomy, high cholesterol, atrial fibrillation on Eliquis, who presents today for evaluation of pleuritic chest pain. Patient states that 2 weeks ago he was carrying some cardboard, he fell and the cardboard hit on his anterior chest. Since then he has been having mild pain in his anterior chest whenever he breathes. It is worse when he breathes. It is not present when he is not breathing. He denies any cough, fever or chills. Pain is achy in nature with some stabbing component. He denies significant shortness of breath. He denies numbness or tingling or weakness. No other complaints at this time. Exam demonstrates a well-appearing male, no hypoxemia or tachypnea. He has some rhonchorous breath sounds throughout. Mild anterior chest wall tenderness. Symptoms appear inconsistent with ACS or STEMI. He is on Eliquis and so his symptoms of pleuritic chest pain would not be consistent with PE secondary to his persistent anticoagulant use. Dissection less likely with no tearing or ripping sensation. Differential is highest for rib contusion, but also fracture. Due to his age we will get imaging, evaluate for less likely cardiac etiology, monitor closely and reassess. 4:04 AM Laboratory workup shows a white count of 12.8 which is actually at his baseline. No bandemia. Troponin normal, proBNP slightly elevated at 600. Creatinine at 2.8 which is slightly better than normal with a GFR of 21. CT scan results show a gallbladder that is moderately distended and there is mild diffuse pericholecystic inflammation compatible with acute cholecystitis. Patient will be started on a dose of Zosyn here. Clinically though the patient has a negative Camp sign and no right upper quadrant tenderness whatsoever. That being said the pleuritic chest pain that he did describe appears to be more exactly related to his left second rib contour abnormality and the right 4th and 5th rib contour/old fracture. That being said the CT scan findings are ce rtainly still concerning. In addition to that he also shows evidence of what appears to be new saccular suprarenal abdominal aortic aneurysm which is 6.3 cm. He has no abdominal pain in that region. I had a long discussion with the patient about these findings, the potential concern for bringing him to surgery and the risks that this includes, including potential on the table from the nature of surgery itself. We discussed how [facility] would not be the appropriate surgical facility to perform the surgery if surgery was going to be done, we also discussed the atypical components of his symptomatology with the CT scan findings. I offered contacting [facility] for transfer for both surgical discussion and palliative care/hospice discussion. I also gave the alternative of admission here with the plan for ultrasound for further gallbladder differentiation, consulting hospice and palliative for potential end-of-life discussion. Patient is requesting to be admitted here to talk with hospice and palliative care. I did contact surgery and discussed the case with Dr. Carlson. He also agrees that the patient would not be a surgical candidate here, but could be candidate for percutaneous drainage in the appropriate setting. He does recommend further ultrasound evaluation of the gallbladder. I contacted the hospitalist Dr. Lassiter, and he agrees with the plan for hospice and palliative care consult, ultrasound, and further potential end-of-life or neck step decision making. Patient will be admitted for further management. I have extensively reviewed the treatment plan with the patient. I have addressed all patient concerns at this time. I have also discussed the plan with the admitting physician and they agree with the current assessment and plan and have agreed to assume responsibility for the patient. All parties demonstrate verbal understanding and agreement with our assessment and plan at this time. The documentation in this chart was dictated using [employer] dictation software. Please excuse any dictation errors. FINDINGS: Lungs: Lungs are clear aside multifocal subsegmental atelectasis and mild scarring. No pulmonary contusion. Pleural spaces: Trace left pleural effusion. No pneumothorax or hemothorax. Heart: Trace pericardial effusion. Lymph nodes: Unremarkable. No enlarged lymph nodes. Vasculature: Incompletely visualized at least 6.3 cm irregular saccular suprarenal abdominal aortic aneurysm which is new/increased in size compared to the prior study. The larger more distal abdominal aortic aneurysm visualized on prior study 08/23/2024 is not included in the imaged portion of the torso on this study. Recommend abdomen/pelvis CT, preferably with IV contrast. No evidence of traumatic aortic injury. No mediastinal hematoma, pneumomediastinum, or hemopericardium. Liver: Liver is decreased in volume with left lobe atrophy and surface irregularity, compatible with cirrhosis.Gallbladder and biliary ducts: Gallbladder is moderately distended and there is mild diffuse pericholecystic inflammation, compatible with acute cholecystitis. Bones/joints: Healing anterior right 4th and 5th rib fractures. Acute appearing anterolateral right 6th rib fracture. Small contour abnormality of the anterior right 2nd rib may signify a fracture of indeterminate age. There is an incompletely visualized pencil in cup/pseudoarthrosis chronic appearing fracture deformity of the head/neck of the left humerus, new since the prior study of 01/28/2024. Consider shoulder CT. Soft tissues: Unremarkable. IMPRESSION: 1. Gallbladder is moderately distended and there is mild diffuse pericholecystic inflammation, compatible with acute cholecystitis. 2. Liver is decreased in volume with left lobe atrophy and surface irregularity, compatible with cirrhosis. 3. Incompletely visualized at least 6.3 cm irregular saccular suprarenal abdominal aortic aneurysm which is new/increased in size compared to the prior study. The larger more distal abdominal aortic aneurysm visualized on prior study 08/23/2024 is not included in the imaged portion of the torso on this study. Recommend abdomen/pelvis CT, preferably with IV contrast. 4. Trace pericardial effusion. 5. Trace left pleural effusion. 6. Healing anterior right 4th and 5th rib fractures. 7. Acute appearing anterolateral right 6th rib fracture. 8. Small contour abnormality of the anterior right 2nd rib may signify a fracture of indeterminate age. 9. There is an incompletely visualized pencil in cup/pseudoarthrosis chronic appearing fracture deformity of the head/neck of the left humerus, new since the prior study of 01/28/2024. Consider shoulder CT. Thank you for allowing us to participate in the care of your patient. Dictated and Authenticated by: Randy Araujo MD 08/23/2024 3:36 AM Eastern Time ([place] & [place]) Quality:SDOH Health Related Social Needs: No Data to Display PFSH All Active Problems (Updated 08/23/24 @ 04:19 by Ryan Stafford DO) Abdominal aortic aneurysm (Acute) Aortic aneurysm, thoracic (Acute) Acute cholecystitis (Acute) Closed rib fracture (Acute) Unsteady gait (Acute) Impaired instrumental activities of daily living (Acute) Left ankle sprain (Acute 05/03/24) Weight loss (Acute) Deficit in activities of daily living (ADL) (Acute) Hard of hearing (Acute) Financial difficulties (Acute) Palliative care patient (Acute) ACP (advance care planning) (Acute) Fracture of proximal end of left humerus (Acute ~02/06/24) Gout of left knee (Acute) Trigger thumb of left hand (Acute) Acute kidney injury superimposed on CKD (Acute) Severe sepsis (Acute) Chronic kidney disease, stage 4 (severe) (Acute) HTN (hypertension) (Acute) CAD (coronary artery disease) (Chronic) Dermatitis (Acute) Atrial fibrillation (Chronic) Chest pain (Acute) Acute non-ST elevation myocardial infarction (NSTEMI) (Acute) Wound dehiscence, surgical (Acute) Type 2 diabetes mellitus (Chronic) Fatty liver (Acute) Chronic kidney disease, stage 3 (Chronic) Mass of salivary gland (Acute) Ischemic cardiomyopathy (Chronic) Skin lesion of scalp (Acute) Anemia (Chronic) Hearing impairment (Acute) Medical History HLD (hyperlipidemia) Former smoker Balanitis Atrial flutter Edema Cruz's disease Phimosis (10/17/15) Erectile dysfunction AAA (abdominal aortic aneurysm) Hypomagnesemia CHF (congestive heart failure) Renal insufficiency 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) Diverticulitis of large intestine with abscess Hypercholesterolemia Diabetes mellitus Myocardial infarct Phimosis Surgical History Status post colostomy takedown (~03/01/20) S/P left hemicolectomy (~07/19/18) H/O phimosis s/p repair History of heart artery stent S/P hernia repair History of endovascular stent graft for abdominal aortic aneurysm (AAA) Social History Smoking/Tobacco Use Status: Former Tobacco Use Quit Date: 01/03/17 Tobacco: How many years used: 60 Smoking risk assessment performed?: Yes Alcohol Intake: former Drug use: Never Substance use type: does not use Housing: house Do you feel safe at home: Yes Do you feel safe in your relationship?: Yes Additional Social history: at side
[2024-08-23 02:42] LABS: BE (Venous) 4 mmol/L (-2-3); HCO3 (Venous) 29 mmol/L (23-28); O2 Sat (Venous) 49 %; TCO2 (Venous) 27 mmol/L (24-29); pCO2 (Venous) 51 mmHg (41-51); pH (Venous) 7.36 (7.31-7.41); pO2 (Venous) 28 mmHg
[2024-08-23 02:48] LABS: Abs Immature Grans 0.15 10^3/uL (0.0-0.06); Absolute Basophil Count 0.05 10^3/uL (0.0-0.2); Absolute Neutrophil Count 8.99 10^3/uL (1.2-6.7); Basophils % 0.4 %; Eosinophils % 1.9 %; HCT 39.6 % (40.0-50.0); HGB 12.6 g/dL (13.5-17.5); Immature Grans % 1.2 %; Lymphocytes % 17.7 %; MCH 29.2 pg (27.0-33.0); MCHC 31.8 % (32.0-36.0); MCV 92 fL (80-95); Monocytes % 8.9 %; Neutrophils % 69.9 %; Platelet Count 309 10^3/uL (130-400); RBC 4.32 10^6/uL (4.36-5.78); RDW 13.7 % (11.8-14.1); RDW-SD 46.8 fL; WBC 12.86 10^3/uL (4.4-10.8)
[2024-08-23 02:49] LABS: Absolute Eosinophil Count 0.24 10^3/uL (0.0-0.7); Absolute Lymphocyte Count 2.28 10^3/uL (1.2-3.4); Absolute Monocyte Count 1.14 10^3/uL (0.1-0.8)
[2024-08-23 02:56] LABS: INR 1.1 (0.9-1.1); PTT Activated 26.9 sec (20.6-30.2); Prothrombin Time 10.6 sec (9.1-11.1)
[2024-08-23 03:06] LABS: ALT 21 U/L (16-63); AST 22 U/L (15-37); Albumin 2.8 g/dL (3.4-5.0); Alkaline Phosphatase 162 U/L (46-116); Anion Gap 4.3 mmol/L (3-11); BUN 25 mg/dL (7-18); Bilirubin, Total 0.6 mg/dL (0.2-1.0); CO2 28.7 mmol/L (21.0-32.0); CREATININE 2.8 mg/dL (0.70-1.30); Calcium 9.3 mg/dL (8.5-10.1); Chloride 106 mmol/L (98-107); Estimated GFR 21.17 (mL/min/1.73m2); Glucose 107 mg/dL (74-106); NT-proBNP 600 pg/mL (<300); Potassium 4.1 mmol/L (3.5-5.1); Sodium 139 mmol/L (136-145); Total Protein 7.2 g/dL (6.4-8.2); Troponin I 6 ng/L (<or=76)
--- NOTE | 2024-08-23 03:37 | DI.VRAD_ITS ---
PROCEDURE INFORMATION: Exam: CT Chest Without Contrast; Diagnostic Exam date and time: 08/23/2024 2:43 AM Age: 88 years old Clinical indication: Other: Anterior rib pain after fall TECHNIQUE: Imaging protocol: Diagnostic computed tomography of the chest without contrast. 3D rendering (Not supervised by radiologist): MIP and/or 3D reconstructed images were created by the technologist. Radiation optimization: All CT scans at this facility use at least one of these dose optimization techniques: automated exposure control; mA and/or kV adjustment per patient size (includes targeted exams where dose is matched to clinical indication); or iterative reconstruction. COMPARISON: CT THORAX ABD/PEL CTA 01/28/2024 10:19 AM FINDINGS: Lungs: Lungs are clear aside multifocal subsegmental atelectasis and mild scarring. No pulmonary contusion. Pleural spaces: Trace left pleural effusion. No pneumothorax or hemothorax. Heart: Trace pericardial effusion. Lymph nodes: Unremarkable. No enlarged lymph nodes. Vasculature: Incompletely visualized at least 6.3 cm irregular saccular suprarenal abdominal aortic aneurysm which is new/increased in size compared to the prior study. The larger more distal abdominal aortic aneurysm visualized on prior study 08/23/2024 is not included in the imaged portion of the torso on this study. Recommend abdomen/pelvis CT, preferably with IV contrast. No evidence of traumatic aortic injury. No mediastinal hematoma, pneumomediastinum, or hemopericardium. Liver: Liver is decreased in volume with left lobe atrophy and surface irregularity, compatible with cirrhosis. Gallbladder and biliary ducts: Gallbladder is moderately distended and there is mild diffuse pericholecystic inflammation, compatible with acute cholecystitis. Bones/joints: Healing anterior right 4th and 5th rib fractures. Acute appearing anterolateral right 6th rib fracture. Small contour abnormality of the anterior right 2nd rib may signify a fracture of indeterminate age. There is an incompletely visualized pencil in cup/pseudoarthrosis chronic appearing fracture deformity of the head/neck of the left humerus, new since the prior study of 01/28/2024. Consider shoulder CT. Soft tissues: Unremarkable. IMPRESSION: 1. Gallbladder is moderately distended and there is mild diffuse pericholecystic inflammation, compatible with acute cholecystitis. 2. Liver is decreased in volume with left lobe atrophy and surface irregularity, compatible with cirrhosis. 3. Incompletely visualized at least 6.3 cm irregular saccular suprarenal abdominal aortic aneurysm which is new/increased in size compared to the prior study. The larger more distal abdominal aortic aneurysm visualized on prior study 08/23/2024 is not included in the imaged portion of the torso on this study. Recommend abdomen/pelvis CT, preferably with IV contrast. 4. Trace pericardial effusion. 5. Trace left pleural effusion. 6. Healing anterior right 4th and 5th rib fractures. 7. Acute appearing anterolateral right 6th rib fracture. 8. Small contour abnormality of the anterior right 2nd rib may signify a fracture of indeterminate age. 9. There is an incompletely visualized pencil in cup/pseudoarthrosis chronic appearing fracture deformity of the head/neck of the left humerus, new since the prior study of 01/28/2024. Consider shoulder CT. Dictated and Authenticated by: Randy Araujo MD. Orderin Rivera Davis MD
[2024-08-23 03:54] LABS: Troponin I 4 ng/L (<or=76)
--- NOTE | 2024-08-23 04:38 | HPE_ITS ---
Date of service: 08/23/24 Time of Service: 04:39 Assessment and Plan Assessment and plan (1) Acute cholecystitis: Start date: 08/23/24 Status: Acute Assessment and plan: This is an 88-year-old gentleman who presents with anterior chest wall pain after minor trauma and found to have a subacute left second closed rib fracture. He also has healed old right 4th and 5th rib fractures. He does not have any abdominal pain but was also found to have what appears to be acute cholecystitis with elevated WBC. He does not have fever. He was placed on Zosyn IV and surgical consultation was obtained with patient to have ultrasound of the abdomen and further evaluation for interventions if recommended. He is not a good surgical candidate. He has a DNR/DNI. (2) Closed rib fracture: Start date: 08/23/24 Status: Acute Assessment and plan: Minimal pain with Tylenol for discomfort. Patient does not have morphine at home as indicated in his medication list for reconciliation. 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 It is not clear where his aortic aneurysm stenting was per formed the patient having a well-healed central vertical scar on his abdomen and his past medical history indicating AAA repair. Patient is on palliative care and does not want any further intervention for these aneurysms. (4) Type 2 diabetes mellitus: Status: Chronic Assessment and plan: Diabetic diet when able to eat now being n.p.o. for abdominal ultrasound. Glucometer measurements before meals and at bedtime with sensitive sliding scale short acting insulin coverage. (5) Chronic kidney disease, stage 4 (severe): Status: Chronic Assessment and plan: This appears stable and is associated with anemia. Monitor while hospitalized. (6) HTN (hypertension): Status: Chronic Assessment and plan: Continue outpatient medical therapy and adjust as needed. (7) Atrial fibrillation: Status: Chronic Assessment and plan: Telemetry monitoring while hospitalized. Patient is a DNR/DNI. (8) Anemia: Status: Chronic Assessment and plan: This appears stable and will be treated while hospitalized. There is no evidence of active bleeding. (9) CAD (coronary artery disease): Status: Chronic Assessment and plan: Department is negative and is no evidence of active ischemic heart disease with his chest pain most likely being from his rib fractures. (10) Gout of left knee: Status: Chronic Assessment and plan: Continue allopurinol while hospitalized. (11) CHF (congestive heart failure): Assessment and plan: Continue outpatient medical therapy. Patient is not on diuretics. Mostly has peripheral edema in lower extremities. (12) Hypomagnesemia: Assessment and plan: On oral magnesium supplement which will be continued with trending magnesium. IV supplementation as needed. (13) BPH (benign prostatic hyperplasia): Status: Chronic Assessment and plan: Continue Flomax. History of Present Illness History of Present Illness Chief Complaint: Anterior chest pain with breathing, trauma 2 weeks ago. Narrative: This is an 88-year-old male patient who lives with a caregiver was not family in the same house that he was born in presenting to the ED after minor trauma to his anterior chest wall while carrying some heavy cardboard and tripping with cardboard striking his chest. His pain was worse with breathing and. Evaluation in ED for this chest pain revealed a probable indeterminate a second rib fracture on the left where he has most of his tenderness and also old healed right 4th and 5th rib fractures. His exam did indicate more tenderness over the left anterior ribs. His troponins were negative and had no evidence of acute cardiac ischemia with a history of CAD. He was not complaining of abdominal pain but did have positive CT for acute cholecystitis without common bile duct dilatation or evidence of stones along with a new suprarenal abdominal aortic aneurysm which is 6.3 cm. He already had a known endovascular repair of a AAA with chronic leaking. He also knew that he had a thoracic aortic aneurysm and aortic arch dilatation. His multiple chronic medical problems are significant but stable. He was on palliative care in the past with oral concentrated morphine ordered but he has not had this at home and does not take anything for pain. He has injured his left shoulder with an old fracture and is disappointed that he cannot golf anymore. He did agree to admission for inpatient treatment of his acute cholecystitis and further evaluation by surgery with ultrasound of the abdomen ordered for this morning. He may not be a surgical candidate at this hospital but could be candidate for IR percutaneous drainage of the gallbladder at [facility] if appropriate. Patient is on Zosyn IV through the ED. He does not have any right upper quadrant abdominal discomfort or Camp sign but does have an elevated WBC. He denies any fever. Surgical follow-up consultation will be sought in the morning. Dr. Carlson has already been consulted through the ED and will see the patient later this morning after ultrasound of the abdomen for recommendations of intervention if needed. Imaging also did reveal old poorly aligned/left humeral head/neck deformity from his remote fracture. Patient is agreeable to admission for treatment of reversible problem but may be going on hospice for palliative care and comfort measures if surgical intervention is not possible. He is a poor surgical candidate. He is a DNR/DNI. Review of Systems Narrative: 13 point review of systems otherwise unrevealing or stable. Patient does have an unsteady gait with some falls. He also has intermittent worsening of his lower extremity swelling not on diuretic therapy. He has occasional bruises from his falls being on apixaban. PFSH All Active Problems (Updated 08/23/24 @ 05:58 by Bello Lassiter) BPH (benign prostatic hyperplasia) (Chronic) Abdominal aortic aneurysm (Acute) Aortic aneurysm, thoracic (Acute) Acute cholecystitis (Acute) Closed rib fracture (Acute) Unsteady gait (Acute) Impaired instrumental activities of daily living (Acute) Left ankle sprain (Acute 05/03/24) Weight loss (Acute) Deficit in activities of daily living (ADL) (Acute) Hard of hearing (Acute) Financial difficulties (Acute) Palliative care patient (Acute) ACP (advance care planning) (Acute) Fracture of proximal end of left humerus (Acute ~02/06/24) Gout of left knee (Chronic) Trigger thumb of left hand (Acute) Acute kidney injury superimposed on CKD (Acute) Severe sepsis (Acute) Chronic kidney disease, stage 4 (severe) (Chronic) HTN (hypertension) (Chronic) CAD (coronary artery disease) (Chronic) Dermatitis (Acute) Atrial fibrillation (Chronic) Chest pain (Acute) Acute non-ST elevation myocardial infarction (NSTEMI) (Acute) Wound dehiscence, surgical (Acute) Type 2 diabetes mellitus (Chronic) Fatty liver (Acute) Mass of salivary gland (Acute) Ischemic cardiomyopathy (Chronic) Skin lesion of scalp (Acute) Anemia (Chronic) Hearing impairment (Acute) Medical History (Updated 08/23/24 @ 05:58 by Bello Lassiter) Chronic kidney disease, stage 3 HLD (hyperlipidemia) Former smoker Balanitis Atrial flutter Edema [place]'s disease Phimosis (10/17/15) Erectile dysfunction AAA (abdominal aortic aneurysm) Hypomagnesemia CHF (congestive heart failure) Renal insufficiency 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) Diverticulitis of large intestine with abscess Hypercholesterolemia Diabetes mellitus Myocardial infarct Phimosis Surgical History Status post colostomy takedown (~03/01/20) S/P left hemicolectomy (~07/19/18) H/O phimosis s/p repair History of heart artery stent S/P hernia repair History of endovascular stent graft for abdominal aortic aneurysm (AAA) Social History Smoking/Tobacco Use Status: Former Tobacco Use Quit Date: 01/03/17 Tobacco: How many years used: 60 Smoking risk assessment performed?: Yes Alcohol Intake: former Drug use: Never Substance use type: does not use Housing: house Do you feel safe at home: Yes Do you feel safe in your relationship?: Yes Additional Social history: at side Meds Allergies and Home Medications Allergies Allergy/AdvReac Type Severity Reaction Status Date / Time adhesive Allergy Severe significant Verified 08/23/24 02:22 skin reaction, swelling, erythema, discomfort neomycin Allergy Unknown Verified 08/23/24 02:22 Home Medications ?Medication ?Instructions ?Recorded ?Confirmed ?Type atorvastatin 40 mg tablet (Lipitor) 40 mg PO QPM 09/20/17 08/23/24 History magnesium oxide 400 mg PO BID 01/14/20 08/23/24 History nitroglycerin 0.4 mg sublingual 0.4 mg sublingual Q5 MIN PRN X3 PRN 01/14/20 08/23/24 History tablet (Nitrostat) acetaminophen 500 mg tablet 1,000 mg PO Q8H PRN 02/29/20 08/23/24 History (Acetaminophen Extra Strength) cyanocobalamin (vitamin B-12) 1,000 mcg PO DAILY 03/01/20 08/23/24 History 1,000 mcg tablet tamsulosin 0.4 mg capsule 0.4 mg PO DAILY 11/27/20 08/23/24 History apixaban 2.5 mg tablet 2.5 mg PO BID 05/31/21 08/23/24 History alogliptin 6.25 mg tablet 6.25 mg PO DAILY 10/07/23 08/23/24 History calcitriol 0.25 mcg capsule 0.25 mcg PO DAILY 10/07/23 08/23/24 History cholecalciferol (vitamin D3) 25 25 mcg PO DAILY 10/07/23 08/23/24 History mcg (1,000 unit) capsule metoprolol succinate 50 mg 25 mg (1/2 x 50 mg) PO DAILY #0 10/07/23 08/23/24 Rx tablet,extended release 24 hr tabs allopurinol 100 mg tablet 100 mg PO .every other day 01/21/24 08/23/24 History insulin glargine 100 unit/mL 5 unit subcut QPM 01/21/24 08/23/24 History subcutaneous solution sitagliptin 50 mg tablet 50 mg PO DAILY 01/21/24 08/23/24 History amlodipine 2.5 mg tablet 5 mg PO DAILY 03/16/24 08/23/24 History insulin aspart U-100 100 unit/mL 3 unit subcut TID 03/16/24 08/23/24 History (3 mL) subcutaneous pen (Novolog FlexPen U-100 Insulin aspart) lidocaine 5 % topical ointment 1 applic topical DAILY PRN pain 06/11/24 08/23/24 Rx #30 grams morphine concentrate 100 mg/5 mL 40 mg (2 mL) PO Q1-4H PRN pain #15 07/15/24 08/23/24 Rx (20 mg/mL) oral solution mL Exam Narrative Exam Narrative: General: Patient appears appropriate for age, alert and oriented x 3 and in mild distress from his anterior chest wall pain. HEENT: Normocephalic, eyes with pupils equal and reactive light symmetrically, extraocular movement intact and sclera anicteric. Oropharynx with dry mucosa and denture plate as above below. Neck: Supple without JVD. Back: Kyphotic without CVA tenderness. Lungs: Bronchovesicular breath sounds diffusely with occasional rhonchi but no focalizing rales. Fair aeration. Chest: Tender to palpation over the left more than right anterior chest wall without crepitus. Heart: Regular rate and rhythm with no appreciable murmur or gallop. Abdomen: Slightly protuberant and obese, soft to palpation with no guarding or rebound. Negative Camp sign. No palpable hepatosplenomegaly. Bowel sounds positive in all quadrants. Genitalia/rectal: Exam deferred. Skin: Pale, warm and dry. No bruising. Extremities: Without clubbing or cyanosis. 2+ soft pitting edema ankles more on the left than right. Joints with fair range of motion with decreased range of motion left shoulder which is chronic. No joint swelling. Neuro: Cranial nerves II through XII is intact, no focalized motor deficits and no tremor. Psych: Normal affect and mood. No abnormal thought processes. Remote and recent memory intact. Results Imaging Imaging Studies: Exam: CT Chest Without Contrast; Diagnostic Exam date and time: 08/23/2024 2:43 AM Age: 88 years old Clinical indication: Other: Anterior rib pain after fall COMPARISON: CT THORAX ABD/PEL CTA 01/28/2024 10:19 AM FINDINGS: Lungs: Lungs are clear aside multifocal subsegmental atelectasis and mild scarring. No pulmonary contusion. Pleural spaces: Trace left pleural effusion. No pneumothorax or hemothorax. Heart: Trace pericardial effusion. Lymph nodes: Unremarkable. No enlarged lymph nodes. Vasculature: Incompletely visualized at least 6.3 cm irregular saccular suprarenal abdominal aortic aneurysm which is new/increased in size compared to the prior study. The larger more distal abdominal aortic aneurysm visualized on prior study 08/23/2024 is not included in the imaged portion of the torso on this study. Recommend abdomen/pelvis CT, preferably with IV contrast. No evidence of traumatic aortic injury. No mediastinal hematoma, pneumomediastinum, or hemopericardium. Liver: Liver is decreased in volume with left lobe atrophy and surface irregularity, compatible with cirrhosis. Gallbladder and biliary ducts: Gallbladder is moderately distended and there is mild diffuse pericholecystic inflammation, compatible with acute cholecystitis. Bones/joints: Healing anterior right 4th and 5th rib fractures. Acute appearing anterolateral right 6th rib fracture. Small contour abnormality of the anterior right 2nd rib may signify a fracture of indeterminate age. There is an incompletely visualized pencil in cup/pseudoarthrosis chronic appearing fracture deformity of the head/neck of the left humerus, new since the prior study of 01/28/2024. Consider shoulder CT. Soft tissues: Unremarkable. IMPRESSION: 1. Gallbladder is moderately distended and there is mild diffuse pericholecystic inflammation, compatible with acute cholecystitis. 2. Liver is decreased in volume with left lobe atrophy and surface irregularity, compatible with cirrhosis. 3. Incompletely visualized at least 6.3 cm irregular saccular suprarenal abdominal aortic aneurysm which is new/increased in size compared to the prior study. The larger more distal abdominal aortic aneurysm visualized on prior study 08/23/2024 is not included in the imaged portion of the torso on this study. Recommend abdomen/pelvis CT, preferably with IV contrast. 4. Trace pericardial effusion. 5. Trace left pleural effusion. 6. Healing anterior right 4th and 5th rib fractures. 7. Acute appearing anterolateral right 6th rib fracture. 8. Small contour abnormality of the anterior right 2nd rib may signify a fracture of indeterminate age. 9. There is an incompletely visualized pencil in cup/pseudoarthrosis chronic appearing fracture deformity of the head/neck of the left humerus, new since the prior study of 01/28/2024. Consider shoulder CT. Labs 08/23/24 02:34 08/23/24 02:34 Labs: Laboratory Results - last 24 hr 08/23/24 08/23/24 02:34 03:25 WBC 12.86 H RBC 4.32 L Hgb 12.6 L Hct 39.6 L MCV 92 MCH 29.2 MCHC 31.8 L RDW 13.7 Plt Count 309 MPV 10.0 Immature Gran % 1.2 Neutrophils % 69.9 Lymphocytes % 17.7 Monocytes % 8.9 Eosinophils % 1.9 Basophils % 0.4 Nucleated RBC % 0.0 Absolute Neutrophils 8.99 H Absolute Lymphocytes 2.28 Absolute Monocytes 1.14 H Absolute Eosinophils 0.24 Absolute Basophils 0.05 PT 10.6 INR 1.1 APTT 26.9 VBG pH 7.36 VBG pCO2 51 VBG pO2 28 VBG HCO3 29 H VBG Total CO2 27 VBG O2 Saturation 49 VBG Base Excess 4 H Sodium 139 Potassium 4.1 Chloride 106 Carbon Dioxide 28.7 Anion Gap 4.3 BUN 25 H Creatinine 2.8 H Est GFR (CKD-EPI 2020) 21.17 Glucose 107 H Calcium 9.3 Total Bilirubin 0.6 AST 22 ALT 21 Alkaline Phosphatase 162 H Troponin I 6 4 NT-Pro-B Natriuret Pep 600 H Total Protein 7.2 Albumin 2.8 L Last Vital Signs Pulse 52 L 08/23/24 03:10 Resp 12 08/23/24 03:10 BP 143/68 H 08/23/24 03:06 Pulse Ox 97 08/23/24 03:10 Time Spent Time spent with Patient: >75 minutes Time was spent: preparing to see the patient(eg.review tests), obtaining and/or reviewing separately otained hiistory, ordering medications,tests, procedures, indepentently interpreting results, counseling the patient and care coordination
[2024-08-23 06:11] LABS: Troponin I 4 ng/L (<or=76)
[2024-08-23 06:18] LABS: COVID-19 PCR Negative (Negative); Influenza A PCR Negative (Negative); Influenza B PCR Negative (Negative); RSV PCR Negative (Negative)
[2024-08-23 07:13] LABS: Source Nasopharynx
[2024-08-23 07:47] LABS: Bilirubin Negative (Negative); Blood Trace-intact (Negative); Clarity Clear (Clear); Glucose Negative (Negative); Ketones Negative (Negative); Leukocyte Esterase Negative (Negative); Nitrite Negative (Negative); Urobilinogen 0.2 mg/dL (Up to 0.2); pH 6.5 (5-8)
[2024-08-23 07:56] LABS: Bacteria Negative HPF (Negative); C & S Indicated? No; Casts 0-2 Hyaline LPF (Negative); Crystals Negative HPF (Negative); Epithelial Cells Rare HPF (Negative); Mucus Negative (Negative); RBC 0-2 HPF (0-2); WBC 0-2 HPF (0-5)
--- NOTE | 2024-08-23 08:00 | DI.US_ITS ---
Exam(s) US ABDOMEN LIMITED EXAM: US ABDOMEN LIMITED CLINICAL HISTORY: Acute cholecystitis TECHNIQUE: Ultrasound abdomen performed using standard protocol. COMPARISON: CT CT ABDOMEN PELVIS WO from 05/24/[address] CHEST WO from 08/23/2024 FINDINGS: PANCREAS: Normal where visualized. LIVER: Normal. Hepatopetal flow in the Portal Vein. The liver measures in 17.2 cm length. No evidence of a hepatic mass. GALLBLADDER: No evidence of cholelithiasis. No evidence of wall thickening. No pericholecystic fluid identified. BILIARY SYSTEM: Common bile duct measures < 7 mm. No intrahepatic biliary ductal dilation. DUMONT'S SIGN: Negative. RIGHT KIDNEY: There is moderate renal cortical atrophy. No evidence of renal calculi. No evidence of hydronephrosis. No renal mass or cyst identified. ASCITES: None seen. IMPRESSION: Normal sonographic appearance of the upper abdomen. DATA REPOSITORY:
[2024-08-23] MEDS: Metoprolol CR 50 MG TABCR 25 MG PO (08:52)
[2024-08-23] MEDS: Tamsulosin 0.4 MG CAPCR PO (08:54)
[2024-08-23] MEDS: Calcitriol 0.25 MCG CAP PO (08:54)
[2024-08-23] MEDS: Apixaban 2.5 MG TAB PO ×2 (08:55→20:16)
[2024-08-23] MEDS: Magnesium Oxide 400 MG TAB PO ×2 (08:56→20:15)
[2024-08-23] MEDS: Cholecalciferol (Vitamin D3) 1,000 UNIT TAB 1000 UNITS PO (08:56)
[2024-08-23] MEDS: amLODIPine 2.5 MG TAB 5 MG PO (08:58)
[2024-08-23] MEDS: Normal Saline Flush 10 ML SYR IVP ×4 (09:00→20:15)
[2024-08-23] MEDS: Cyanocobalamin 500 MCG TAB 1000 MCG PO (09:24)
--- NOTE | 2024-08-23 09:40 | PGE_ITS ---
Date of Service Date of service: 08/23/24 Time of Service: 09:40 Assessment and Plan Assessment and plan (1) Acute cholecystitis: Start date: 08/23/24 Status: Acute Assessment and plan: This is an 88-year-old gentleman who presents with anterior chest wall pain after minor trauma and found to have a subacute left second closed rib fracture. He also has healed old right 4th and 5th rib fractures. He does not have any abdominal pain but was also found to have what appears to be acute cholecystitis with elevated WBC. He does not have fever. He was placed on Zosyn IV and surgical consultation was obtained with patient to have ultrasound of the abdomen and further evaluation for interventions if recommended. He is not a good surgical candidate. He has a DNR/DNI. Ongoing Zosyn Blood Cx pending Surgical consult with recommendation for US abd but unlikely to be cholecystitis and patient already refused prospective drain placement at [facility] Resuming low-fat diet s/p US (2) Closed rib fracture: Start date: 08/23/24 Status: Acute Assessment and plan: Minimal pain with Tylenol for discomfort. Patient does not have morphine at home as indicated in his medication list for reconciliation. 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 It is not clear where his aortic aneurysm stenting was per formed the patient having a well-healed central vertical scar on his abdomen and his past medical history indicating AAA repair. Patient is on palliative care and does not want any further intervention for these aneurysms. Again the patient reaffirmed being against [facility] transfer (4) Type 2 diabetes mellitus: Status: Chronic Assessment and plan: Diabetic, low fat and heart healthy diet when able to eat after for abdominal ultrasound. Continue glucometer measurements before meals and at bedtime with sensitive sliding scale short acting insulin coverage. (5) Chronic kidney disease, stage 4 (severe): Status: Chronic Assessment and plan: This appears stable and is associated with anemia. Monitor while hospitalized. (6) HTN (hypertension): Status: Chronic Assessment and plan: Continue outpatient medical therapy and adjust as needed. (7) Atrial fibrillation: Status: Chronic Assessment and plan: Telemetry monitoring while hospitalized. Patient is a DNR/DNI. (8) Anemia: Status: Chronic Assessment and plan: This appears stable and will be treated while hospitalized. There is no evidence of active bleeding. (9) CAD (coronary artery disease): Status: Chronic Assessment and plan: Department is negative and is no evidence of active ischemic heart disease with his chest pain most likely being from his rib fractures. (10) Gout of left knee: Status: Chronic Assessment and plan: Continue allopurinol while hospitalized. (11) CHF (congestive heart failure): Assessment and plan: Continue outpatient medical therapy. Patient is not on diuretics. Mostly has peripheral edema in lower extremities. (12) Hypomagnesemia: Assessment and plan: On oral magnesium supplement which will be continued with trending magnesium. IV supplementation as needed. (13) BPH (benign prostatic hyperplasia): Status: Chronic Assessment and plan: Continue Flomax. Discussed with Dr. Leon Objective Last Vital Signs Temp 36.2 C L 08/23/24 08:00 Pulse 50 L 08/23/24 08:00 Resp 16 08/23/24 08:00 BP 123/76 08/23/24 08:00 Pulse Ox 98 08/23/24 08:00 Laboratory Results - last 24 hr 08/23/24 08/23/24 08/23/24 02:34 03:25 05:38 WBC 12.86 H RBC 4.32 L Hgb 12.6 L Hct 39.6 L MCV 92 MCH 29.2 MCHC 31.8 L RDW 13.7 Plt Count 309 MPV 10.0 Immature Gran % 1.2 Neutrophils % 69.9 Lymphocytes % 17.7 Monocytes % 8.9 Eosinophils % 1.9 Basophils % 0.4 Nucleated RBC % 0.0 Absolute Neutrophils 8.99 H Absolute Lymphocytes 2.28 Absolute Monocytes 1.14 H Absolute Eosinophils 0.24 Absolute Basophils 0.05 PT 10.6 INR 1.1 APTT 26.9 VBG pH 7.36 VBG pCO2 51 VBG pO2 28 VBG HCO3 29 H VBG Total CO2 27 VBG O2 Saturation 49 VBG Base Excess 4 H Sodium 139 Potassium 4.1 Chloride 106 Carbon Dioxide 28.7 Anion Gap 4.3 BUN 25 H Creatinine 2.8 H Est GFR (CKD-EPI 2020) 21.17 Glucose 107 H Calcium 9.3 Total Bilirubin 0.6 AST 22 ALT 21 Alkaline Phosphatase 162 H Troponin I 6 4 NT-Pro-B Natriuret Pep 600 H Total Protein 7.2 Albumin 2.8 L Urine Color Urine Clarity Urine pH Ur Specific [place] Urine Protein Urine Ketones Urine Blood Urine Nitrite Urine Bilirubin Urine Urobilinogen Ur Leukocyte Esterase Urine RBC Urine WBC Ur Epithelial Cells Urine Crystals Urine Bacteria Urine Casts Urine Mucus Ur Culture Indicated? Urine Glucose COVID-19 Source Nasopharynx SARS-CoV-2 (PCR) Negative Influenza Type A (PCR) Negative Influenza Type B (PCR) Negative RSV (PCR) Negative 08/23/24 08/23/24 05:45 07:20 WBC RBC Hgb Hct MCV MCH MCHC RDW Plt Count MPV Immature Gran % Neutrophils % Lymphocytes % Monocytes % Eosinophils % Basophils % Nucleated RBC % Absolute Neutrophils Absolute Lymphocytes Absolute Monocytes Absolute Eosinophils Absolute Basophils PT INR APTT VBG pH VBG pCO2 VBG pO2 VBG HCO3 VBG Total CO2 VBG O2 Saturation VBG Base Excess Sodium Potassium Chloride Carbon Dioxide Anion Gap BUN Creatinine Est GFR (CKD-EPI 2020) Glucose Calcium Total Bilirubin AST ALT Alkaline Phosphatase Troponin I 4 NT-Pro-B Natriuret Pep Total Protein Albumin Urine Color Yellow Urine Clarity Clear Urine pH 6.5 Ur Specific [place] 1.020 Urine Protein 30 H Urine Ketones Negative Urine Blood Trace-intact H Urine Nitrite Negative Urine Bilirubin Negative Urine Urobilinogen 0.2 Ur Leukocyte Esterase Negative Urine RBC 0-2 Urine WBC 0-2 Ur Epithelial Cells Rare Urine Crystals Negative Urine Bacteria Negative Urine Casts 0-2 Hyaline Urine Mucus Negative Ur Culture Indicated? No Urine Glucose Negative COVID-19 Source SARS-CoV-2 (PCR) Influenza Type A (PCR) Influenza Type B (PCR) RSV (PCR) PAWSS Have you Been Recently Intoxicated or Drunk Within the Last 30 days?: No Have you Ever Experienced Previous Episodes of Alcohol Withdrawal?: No Have you ever Experienced Withdrawal Seizures?: No Have you ever Experienced Delirium Tremens(DT)s?: No Have you ever undergone Alcohol Rehabilitation Treatment (i.e, inpt ot outpatient treatment programs)?: No Have you ever Experienced Blackouts?: No Have you ever Combined Alcohol with other Downers within the last 90 days?: No Have you ever Combined Alcohol with any other Substance of Abuse during the last 90 days?: No Positive Blood Alcohol level on Presentation? [PCS.BAL]: No Evidence of Increased Autonomic Activity (i.e. HR>120, tremor, sweating, agitation, nausea)?: No Result: 0 Time Spent with Patient Time Spent with Patient: >50 minutes Time was spent: preparing to see the patient(eg.review tests), obtaining and/or reviewing separately otained hiistory, ordering medications,tests, procedures, referring, communicating with other health care clinician, indepentently interpreting results, counseling the patient and care coordination
--- NOTE | 2024-08-23 10:02 | INITIAL_ITS ---
Date of service: 08/23/24 Time of Service: 10:03 Care Management Initial Assmt Initial Assessment Reason for Hospitalization: s/p fall with rib fracture and acute cholecystitis Functional Status/Living Situation Patient Presentation: Cesar presented to the ED early this morning s/p fall. He was found to hav a subacute second closed rib fracture. Through imaging, he was found to have acute cholycystitis. He was started on IV abx and surgical consult was requested. Per surgery, U/S of abdomen showed normal gallbladder, and there is no additional w/u needed for his gallbladder. Ovidio was back from his U/S and had just worked with PT when CM met with him today. He was quite talkative. Ovidio lives with his girlfriend, Montse. Montse is 20+years younger and does the shopping and most of the loan collector. Ovidio still cares for the yard and enjoys fishing. He no longer drives, but is still quite active, especially now that the good weather is here, he hopes to be outside even more. Town of Residence: [facility] Resides with: Spouse (Montse De Anda) Significant Other/Family: Out of area (4 children, daughter in [place] that he speaks with, but she is the only child he is in contact with.) Caregiver/Guardian: Montse Natural Supports: Really only Montse Employment Status: Retired Instrumental Activities of Daily Living (ADLs): Requires support with Transportation Activities/Hobbies/SocialSupport: Ovidio still enoys fishing and skiing Medications Medication Management: No Issues/Barriers identified Physical Functioning/Mobility Assistive Device: has a cane and a walker, but doesn't really use them. Attends outpatient PT Advance Directives Advance Directives: Do you have an Advance Directive: Y 08/23/24 02:33 AD On File at [facility]: Y 08/23/24 02:33 Date Asked 02/27/24 08/23/24 09:10 AD Date Reviewed 08/23/24 08/23/24 02:33 COLST On File at [facility] COLST Date Scanned Code Status Resuscitation Status DNR/DNI Insurance Coverage/Financial Issues [place]: [place] - [id number] [place] Financial Issues: Ovidio stated that he really can't afford any good foods, no treats, and is on a strict budget. He has the assistance of [employer], [employer], and [employer]. He also get help from the [employer], and [employer]. Care Team Visit Care Team Role Provider Type Bozena Wright APRN MD [facility] STAFF PHYSICIAN Maximino Lucero Primary Care Provider NON-[facility] STAFF PHYSICIAN Winston Carlson MD Other Providers [facility] STAFF PHYSICIAN Ryan Stafford, DO Emergency Provider [facility] STAFF PHYSICIAN Bello Lassiter Admit Provider NON-[facility] STAFF PHYSICIAN Attending Provider Discharge Potential Discharge Needs: PT Evaluation, PCP F/U Appt and Surgical F/U Appt Anticipated Barriers to Discharge: None Identified Patient/Family Education Needs: Review discharge instructions, discuss Ask Me Three Transportation: Private vehicle Plan: Anticipate that Cesar will be discharged home once medically stable, with no new services, but with continuation of his outpatient PT. Cesar has recently been referred to [facility] and also [facility], and he also utilizes [employer] for the food shelf and heating assistance. Ovidio will f/u with his PCP and continue per his discharge plan of care. CM will continue to follow and update the plan as needed. Social Determinants of Health Screening Social Determinants of health last assessed in clinic: 08/23/24 Will the Patient Participate in the Screening?: Yes Do you worry about having a steady place to live?: no Problems where you live: mold and lead paints of pipes In the past 12 months, have you had to go without electric, gas, oil or water in your home?: no 1. Within the past 12 months, we worried whether our food would run out before we got money to buy more.: Never true 2. Within the past 12 months, the food we bought just didn't last and we didn't have money to get more.: Never true Has lack of transportation kept you from medical appointments or from doing things needed for daily living?: no Has anyone in your life made you feel unsafe or unsupported?: no How hard is it for you to pay for the very basics like food, housing, medical care, and heating? Would you say it is:: Somewhat hard Do you want help finding or keeping work or a job?: I do not need or want help If for any reason you need help with day-to-day activities such as bathing, preparing meals, shopping, managing finances, etc., do you get the help you need?: I don?t need any help How often do you feel lonely or isolated from those around you?: Never Do you speak a language other than Upper Sor[place] at home?: No Does the patient want assistance with any of the above?: No Health Related Social Needs Health related social needs: inadequate housing (Z59.1) and problems related to housing/economic circumstances (Z59.89) Health related social needs details: Pt states he is worried about financing to get pellets for the stove and food. PFSH All Active Problems (Updated 08/23/24 @ 14:36 by Erik Schaffer MD) Rib fracture (Acute) BPH (benign prostatic hyperplasia) (Chronic) Abdominal aortic aneurysm (Acute) Aortic aneurysm, thoracic (Acute) Acute cholecystitis (Acute) Closed rib fracture (Acute) Unsteady gait (Acute) Impaired instrumental activities of daily living (Acute) Left ankle sprain (Acute 05/03/24) Weight loss (Acute) Deficit in activities of daily living (ADL) (Acute) Hard of hearing (Acute) Financial difficulties (Acute) Palliative care patient (Acute) ACP (advance care planning) (Acute) Fracture of proximal end of left humerus (Acute ~02/06/24) Gout of left knee (Chronic) Trigger thumb of left hand (Acute) Acute kidney injury superimposed on CKD (Acute) Severe sepsis (Acute) Chronic kidney disease, stage 4 (severe) (Chronic) HTN (hypertension) (Chronic) CAD (coronary artery disease) (Chronic) Dermatitis (Acute) Atrial fibrillation (Chronic) Chest pain (Acute) Acute non-ST elevation myocardial infarction (NSTEMI) (Acute) Wound dehiscence, surgical (Acute) Type 2 diabetes mellitus (Chronic) Fatty liver (Acute) Mass of salivary gland (Acute) Ischemic cardiomyopathy (Chronic) Skin lesion of scalp (Acute) Anemia (Chronic) Hearing impairment (Acute) Medical History (Updated 08/23/24 @ 14:36 by Erik Schaffer MD) Chronic kidney disease, stage 3 HLD (hyperlipidemia) Former smoker Balanitis Atrial flutter Edema Zwolle's disease Phimosis (10/17/15) Erectile dysfunction AAA (abdominal aortic aneurysm) Hypomagnesemia CHF (congestive heart failure) Renal insufficiency 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) Diverticulitis of large intestine with abscess Hypercholesterolemia Diabetes mellitus Myocardial infarct Phimosis Surgical History Status post colostomy takedown (~03/01/20) S/P left hemicolectomy (~07/19/18) H/O phimosis s/p repair History of heart artery stent S/P hernia repair History of endovascular stent graft for abdominal aortic aneurysm (AAA) Social History Smoking/Tobacco Use Status: Former Tobacco Use Quit Date: 01/03/17 Tobacco: How many years used: 60 Smoking risk assessment performed?: Yes Alcohol Intake: former Drug use: Never Substance use type: does not use Housing: house Do you feel safe at home: Yes Do you feel safe in your relationship?: Yes Additional Social history: at side Readmission Within the Past 30 Days Yes or No: No
[2024-08-23 10:03] LABS: Magnesium 2.1 mg/dL (1.8-2.4)
[2024-08-23] MEDS: Acetaminophen 500 MG TAB 1000 MG PO ×2 (10:44→17:24)
[2024-08-23] MEDS: Ketorolac 15 MG/ML VIAL IVP (10:46)
[2024-08-23] MEDS: Pantoprazole 40 MG VIAL IVP (10:56)
--- NOTE | 2024-08-23 14:11 | PT.INIE ---
PT Notes Visit Reasons: Closed left rib fracture, acute cholecystitis, AAA Physical Therapy Inpatient Initial Evaluation Date: 08/23/2024 Referring Doctor: Bozena Wright APRN PT Orders: PT CONSULT:Safety Consult for D/C, Eval for Assistive device Precautions: Telemetry Patient Profile/Admitting Diagnosis: Pt is an 88yo male presented to ED with anterior chest pain 2 weeks s/p stumbling and having cardboard jab into his ribs. Chest CT revealed Left 2nd rib fracture and multiple old right fractures. 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 Pt consult with GI and admitted for Abdominal US and pain management. Pt was NPO initially . Abdominal US (negative findings of choleycystitis. PMHX: BPH (benign prostatic hyperplasia) (Chronic) Abdominal aortic aneurysm (Acute) Aortic aneurysm, thoracic (Acute) Acute cholecystitis (Acute) Closed rib fracture (Acute) Unsteady gait (Acute) Impaired instrumental activities of daily living (Acute) Left ankle sprain (Acute 05/03/24) Weight loss (Acute) Deficit in activities of daily living (ADL) (Acute) Hard of hearing (Acute) Financial difficulties (Acute) Palliative care patient (Acute) ACP (advance care planning) (Acute) Fracture of proximal end of left humerus (Acute ~02/06/24) Gout of left knee (Chronic) Trigger thumb of left hand (Acute) Acute kidney injury superimposed on CKD (Acute) Severe sepsis (Acute) Chronic kidney disease, stage 4 (severe) (Chronic) HTN (hypertension) (Chronic) CAD (coronary artery disease) (Chronic) Dermatitis (Acute) Atrial fibrillation (Chronic) Chest pain (Acute) Acute non-ST elevation myocardial infarction (NSTEMI) (Acute) Wound dehiscence, surgical (Acute) Type 2 diabetes mellitus (Chronic) Fatty liver (Acute) Mass of salivary gland (Acute) Ischemic cardiomyopathy (Chronic) Skin lesion of scalp (Acute) Anemia (Chronic) Hearing impairment (Acute) Medical History (Updated 08/23/24 @ 05:58 by Bello Lassiter) Chronic kidney disease, stage 3 HLD (hyperlipidemia) Former smoker Balanitis Atrial flutter Edema Cruz's disease Phimosis (10/17/15) Erectile dysfunction AAA (abdominal aortic aneurysm) Hypomagnesemia CHF (congestive heart failure) Renal insufficiency 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) Diverticulitis of large intestine with abscess Hypercholesterolemia Diabetes mellitus Myocardial infarct Phimosis Surgical History Status post colostomy takedown (~03/01/20) S/P left hemicolectomy (~07/19/18) H/O phimosis s/p repairHistory of heart artery stent S/P hernia repair History of endovascular stent graft for abdominal aortic aneurysm (AAA) Social History/Home Situation: resides in his own home with a caregiver. 2 [place] with left rail. 13 steps with left rail up to the shower. Pt otherwise stays on the first floor. He is independent ADL except shower is supervised for safety. Independent light meal prep, and assist with home management. Caregiver does the majority of meal prep and shopping. Equipment Owned/DME: shower seat Subjective: Pt reports he can do everything for himself at home when he does not have the pain. He stated he stumbled while walking landing on a very thick piece of cardboard that gabbed into his ribs. He reports he attends Outpatient PT for his back and has some exercises to do Objective: [] General Observation: elderly male upright in bed visiting with caregiver. Pt with telemetry in place Mental Status: A + Ox4, zeke to follow all instructions, agreeable to participate. Pain: denied with pain meds vitals pre: 138/71 HR 50; during amb HR 83 per telemetry ROM: [] Right Upper Extremity: WFL Left Upper Extremity: Shoulder limited flexion and abduction; elbow wrist and hand WNL Right Lower Extremity:WFL except DF neutral Left Lower Extremity: WFL except DF Neutral Strength: BLE: grossly 4/5 Sensation: intact Bed Mobility/Transfers: Supine to sit independent Sit to stand independent Stand to sit independent Bed to chair independent Gait: SBA amb 300 feet without device with intermittent stagger step on level surfaces. Pt noted to have excessive posterior weight shift resulting in stagger step. He is able to regain without external support. Stairs: 2 steps with B rail reciprocal pattern SBA Balance: Static Sitting: Normal Dynamic Sitting: Good Static Standing: Normal Dynamic Standing: Good Special Tests: 4 STAGE BALANCE TEST: Feet together 17 seconds 1/2 Stance 10 seconds after external support to attain position Tandem stance 4 seconds after external support to attain position Single leg stance left 2 seconds, right unable Mobility Limitations Standardized Measure [] [facility] AM-PAC 6 clicks Basic Mobility Inpatient Short Form: [] Raw Score:24 CMS Score: 0% Informed Consent/Education: Patient instructed in purpose of PT consult. Treatment: 24494: perform 2 stairs x 2 with left rail CGA step to pattern functional ambulation without AD within room SBA for simulated mobility within home for item retrieval and to from bathroom short distances under 25 feet x 4. Assessment: Pt participated in evaluation. He declines to use an AD at this time. He was educated on benefits of WD for foot clearance when he is fatigued. Pt continued to decline. Pt. with impaired step height as he fatigues placing him at risk to catch his toe and stumble. Patient is an 88-year-old male who presents status post fall with resultant rib fracture several weeks ago now with increased thoracic pain that have resulted to mobility limitations, gait instability, generalized weakness, and impairment of motor control as demonstrated by the following impairment level findings: 1. Decreased strength to BLE musculature 2. Impaired standing balance 3. Limitation of joint range of motion in B ankles 4. Impaired functional activity tolerance 5. Pain along left second rib without pain medication Impairments are contributing to the following functional limitations: 1. Inability to safely ambulate without assistive device long distances without supervision 2. Increase completion time for mobility ADL performance 3. Increased fall risk 4. Difficulty performing stairs safely independently Patient is assessed as a low complexity based on the following: History: 88-year-old male with impairment level findings, functional limitations, and past medical history as indicated above Examination: Demonstrable impairment in strength, balance, and mobility level with underlying impairments and functional limitations as documented above Presentation: stable Decision Making: low Goals: 1. independent ambulation without device >300 feet without LOB or increased pain 2. Supervision 2 steps with left rail to safely enter and exit home Plan of Care/Treatment Plan: . PT evaluation and 1-2 treatment session only for functional mobility training using recommended AD and for HEP instruction. DISCHARGE RECOMMENDATIONS: Home with resumption of outpatient PT for back TREATMENT CODE/TIME: 25862, [id number] Thank you for the opportunity to participate in the care of this patient. [facility]
--- NOTE | 2024-08-23 14:15 | W.SURGCON ---
Date of service: 08/23/24 Time of Service: 14:15 Assessment and Plan Assessment and plan (1) Chest pain: Status: Acute Assessment and plan: This does not appear to be cholecystitis, nor related to biliary pathology. He does have a mild elevation of his white cell count. His bilirubin and transaminases are normal. There is a mild elevation of alkaline phosphatase. His initial CT showed some concern for cholecystitis. Subsequent ultrasound shows a normal gallbladder. I do not think any additional workup is necessary for the gallbladder. This does not appear to be the source of his pain. He is cleared from a medical perspective he can be discharged home. (2) Rib fracture: Status: Acute Assessment and plan: He does have a rib fracture. Cautioned about underlying pulmonary contusion, which can be seen with his injury. Encouraged him to sit up in bed, chair, and ambulate as much as possible. (3) Aortic aneurysm, thoracic: Status: Acute Assessment and plan: Patient is aware of this, and does not desire surgery for this. (4) Chronic kidney disease, stage 3: Assessment and plan: He does have chronic kidney disease. His BUN and creatinine are both elevated as expected. At home, he drinks 1500 mL of water per day, maintain hydration. History of Present Illness Narrative: Patient is a elderly male, who presents to the hospital after falling on a thick cardboard box and hitting his right chest. The fall occurred because of tripping on other pieces of cardboard and carrying too much simultaneously. After the fall he developed pain on his left and right chest, prompting presentation here. He does not have history of nausea nor vomiting. He reports no history of GI intolerance to fatty nor greasy foods. He reports normal bowel function. Some right sided chest pain, no significant abdominal pain. He does have prior history of right sided rib fractures from fall last year. Review of Systems Cardiovascular Comments: Notable history of aortic aneurysms, CAD, and prior MS [facility] All Active Problems (Updated 08/23/24 @ 14:36 by Erik Schaffer MD) Rib fracture (Acute) BPH (benign prostatic hyperplasia) (Chronic) Abdominal aortic aneurysm (Acute) Aortic aneurysm, thoracic (Acute) Acute cholecystitis (Acute) Closed rib fracture (Acute) Unsteady gait (Acute) Impaired instrumental activities of daily living (Acute) Left ankle sprain (Acute 05/03/24) Weight loss (Acute) Deficit in activities of daily living (ADL) (Acute) Hard of hearing (Acute) Financial difficulties (Acute) Palliative care patient (Acute) ACP (advance care planning) (Acute) Fracture of proximal end of left humerus (Acute ~02/06/24) Gout of left knee (Chronic) Trigger thumb of left hand (Acute) Acute kidney injury superimposed on CKD (Acute) Severe sepsis (Acute) Chronic kidney disease, stage 4 (severe) (Chronic) HTN (hypertension) (Chronic) CAD (coronary artery disease) (Chronic) Dermatitis (Acute) Atrial fibrillation (Chronic) Chest pain (Acute) Acute non-ST elevation myocardial infarction (NSTEMI) (Acute) Wound dehiscence, surgical (Acute) Type 2 diabetes mellitus (Chronic) Fatty liver (Acute) Mass of salivary gland (Acute) Ischemic cardiomyopathy (Chronic) Skin lesion of scalp (Acute) Anemia (Chronic) Hearing impairment (Acute) Medical History (Updated 08/23/24 @ 14:36 by Erik Schaffer MD) Chronic kidney disease, stage 3 HLD (hyperlipidemia) Former smoker Balanitis Atrial flutter Edema Cruz's disease Phimosis (10/17/15) Erectile dysfunction AAA (abdominal aortic aneurysm) Hypomagnesemia CHF (congestive heart failure) Renal insufficiency 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) Diverticulitis of large intestine with abscess Hypercholesterolemia Diabetes mellitus Myocardial infarct Phimosis Surgical History Status post colostomy takedown (~03/01/20) S/P left hemicolectomy (~07/19/18) H/O phimosis s/p repair History of heart artery stent S/P hernia repair History of endovascular stent graft for abdominal aortic aneurysm (AAA) Social History Smoking/Tobacco Use Status: Former Tobacco Use Quit Date: 01/03/17 Tobacco: How many years used: 60 Smoking risk assessment performed?: Yes Alcohol Intake: former Drug use: Never Substance use type: does not use Housing: house Do you feel safe at home: Yes Do you feel safe in your relationship?: Yes Additional Social history: at side Exam Narrative Exam Narrative: Patient is a pleasant elderly male, he is caregiver is bedside, she assists with history, as patient does have some age-related symptoms. Patient's vitals signs are normal. His cardiac exam is regular rate and rhythm, without gross murmur. His pulmonary exam elicits some crackles on the left lung base. Right and left chest are without significant ecchymosis, some mild tenderness to palpation. Patient's abdomen has prior surgical scars, he has a colostomy takedown scar in the left mid abdomen, also generous midline laparotomy scar from previous colectomy, and colostomy. His abdomen is soft, nontender nondistended. Results Last Vital Signs Temp 36.4 C L 08/23/24 13:37 Pulse 50 L 08/23/24 13:37 Resp 16 08/23/24 13:37 BP 138/71 08/23/24 13:37 Pulse Ox 98 08/23/24 13:37 Labs 08/23/24 02:34 08/23/24 02:34 Labs: Laboratory Results - last 24 hr 08/23/24 08/23/24 08/23/24 02:34 03:25 05:38 WBC 12.86 H RBC 4.32 L Hgb 12.6 L Hct 39.6 L MCV 92 MCH 29.2 MCHC 31.8 L RDW 13.7 Plt Count 309 MPV 10.0 Immature Gran % 1.2 Neutrophils % 69.9 Lymphocytes % 17.7 Monocytes % 8.9 Eosinophils % 1.9 Basophils % 0.4 Nucleated RBC % 0.0 Absolute Neutrophils 8.99 H Absolute Lymphocytes 2.28 Absolute Monocytes 1.14 H Absolute Eosinophils 0.24 Absolute Basophils 0.05 PT 10.6 INR 1.1 APTT 26.9 VBG pH 7.36 VBG pCO2 51 VBG pO2 28 VBG HCO3 29 H VBG Total CO2 27 VBG O2 Saturation 49 VBG Base Excess 4 H Sodium 139 Potassium 4.1 Chloride 106 Carbon Dioxide 28.7 Anion Gap 4.3 BUN 25 H Creatinine 2.8 H Est GFR (CKD-EPI 2020) 21.17 Glucose 107 H Calcium 9.3 Magnesium Total Bilirubin 0.6 AST 22 ALT 21 Alkaline Phosphatase 162 H Troponin I 6 4 NT-Pro-B Natriuret Pep 600 H Total Protein 7.2 Albumin 2.8 L Urine Color Urine Clarity Urine pH Ur Specific [place] Urine Protein Urine Ketones Urine Blood Urine Nitrite Urine Bilirubin Urine Urobilinogen Ur Leukocyte Esterase Urine RBC Urine WBC Ur Epithelial Cells Urine Crystals Urine Bacteria Urine Casts Urine Mucus Ur Culture Indicated? Urine Glucose COVID-19 Source Nasopharynx SARS-CoV-2 (PCR) Negative Influenza Type A (PCR) Negative Influenza Type B (PCR) Negative RSV (PCR) Negative 08/23/24 08/23/24 05:45 07:20 WBC RBC Hgb Hct MCV MCH MCHC RDW Plt Count MPV Immature Gran % Neutrophils % Lymphocytes % Monocytes % Eosinophils % Basophils % Nucleated RBC % Absolute Neutrophils Absolute Lymphocytes Absolute Monocytes Absolute Eosinophils Absolute Basophils PT INR APTT VBG pH VBG pCO2 VBG pO2 VBG HCO3 VBG Total CO2 VBG O2 Saturation VBG Base Excess Sodium Potassium Chloride Carbon Dioxide Anion Gap BUN Creatinine Est GFR (CKD-EPI 2020) Glucose Calcium Magnesium 2.1 Total Bilirubin AST ALT Alkaline Phosphatase Troponin I 4 NT-Pro-B Natriuret Pep Total Protein Albumin Urine Color Yellow Urine Clarity Clear Urine pH 6.5 Ur Specific [place] 1.020 Urine Protein 30 H Urine Ketones Negative Urine Blood Trace-intact H Urine Nitrite Negative Urine Bilirubin Negative Urine Urobilinogen 0.2 Ur Leukocyte Esterase Negative Urine RBC 0-2 Urine WBC 0-2 Ur Epithelial Cells Rare Urine Crystals Negative Urine Bacteria Negative Urine Casts 0-2 Hyaline Urine Mucus Negative Ur Culture Indicated? No Urine Glucose Negative COVID-19 Source SARS-CoV-2 (PCR) Influenza Type A (PCR) Influenza Type B (PCR) RSV (PCR) Imaging Abdomen CT scan report/results: report reviewed and image reviewed (Did review the images from the patient's chest CT, which does extend to the abdomen. There is a right-sided sixth rib fracture. The gallbladder appears unremarkable on my review of the images, the radiologist says they came in for concern for cholecystitis.) Abdominal ultrasound report/results: report reviewed (This is normal.)
--- NOTE | 2024-08-23 14:23 | NUR.NOTE ---
Nursing Note: Documentation by system operator student, Katie Kaye reviewed and approved.
[2024-08-23] MEDS: Insulin Aspart 300 UNITS/3 ML PEN SC (17:23)
[2024-08-23] MEDS: Atorvastatin 40 MG TAB PO (20:16)
[2024-08-24 03:20] VITALS: BP 121/71; PULSE 59; RESP 18; TEMP 36.8; O2SAT 97
[2024-08-24 06:52] LABS: Abs Immature Grans 0.06 10^3/uL (0.0-0.06); Absolute Basophil Count 0.03 10^3/uL (0.0-0.2); Absolute Lymphocyte Count 1.91 10^3/uL (1.2-3.4); Absolute Monocyte Count 1.25 10^3/uL (0.1-0.8); Basophils % 0.2 %; Eosinophils % 2.2 %; HCT 34.1 % (40.0-50.0); HGB 10.7 g/dL (13.5-17.5); Immature Grans % 0.5 %; Lymphocytes % 14.7 %; MCH 28.6 pg (27.0-33.0); MCHC 31.4 % (32.0-36.0); MCV 91 fL (80-95); MPV 10.1 fL (8.0-11.0); Monocytes % 9.6 %; Neutrophils % 72.8 %; Platelet Count 251 10^3/uL (130-400); RBC 3.74 10^6/uL (4.36-5.78); RDW 13.5 % (11.8-14.1); RDW-SD 45.9 fL
[2024-08-24 06:54] LABS: Absolute Eosinophil Count 0.29 10^3/uL (0.0-0.7); Absolute Neutrophil Count 9.46 10^3/uL (1.2-6.7)
[2024-08-24 07:21] LABS: ALT 15 U/L (16-63); AST 16 U/L (15-37); Albumin 2.2 g/dL (3.4-5.0); Alkaline Phosphatase 129 U/L (46-116); Anion Gap 5.9 mmol/L (3-11); BUN 36 mg/dL (7-18); Bilirubin, Total 0.5 mg/dL (0.2-1.0); CO2 26.1 mmol/L (21.0-32.0); CREATININE 2.8 mg/dL (0.70-1.30); Calcium 8.8 mg/dL (8.5-10.1); Chloride 107 mmol/L (98-107); Estimated GFR 21.17 (mL/min/1.73m2); Glucose 101 mg/dL (74-106); Potassium 4.2 mmol/L (3.5-5.1); Sodium 139 mmol/L (136-145); Total Protein 5.9 g/dL (6.4-8.2)
[2024-08-24 07:31] VITALS: BP 123/64; PULSE 54; RESP 18; TEMP 36.9; O2SAT 98
[2024-08-24] MEDS: Pantoprazole 40 MG VIAL IVP (08:17)
[2024-08-24] MEDS: Cyanocobalamin 500 MCG TAB 1000 MCG PO (08:17)
[2024-08-24] MEDS: Normal Saline Flush 10 ML SYR IVP (08:18)
[2024-08-24] MEDS: Apixaban 2.5 MG TAB PO (08:18)
[2024-08-24] MEDS: Magnesium Oxide 400 MG TAB PO (08:18)
[2024-08-24] MEDS: Cholecalciferol (Vitamin D3) 1,000 UNIT TAB 1000 UNITS PO (08:18)
[2024-08-24] MEDS: Calcitriol 0.25 MCG CAP PO (08:18)
[2024-08-24] MEDS: Tamsulosin 0.4 MG CAPCR PO (08:18)
[2024-08-24] MEDS: Allopurinol 100 MG TAB PO (09:15)
[2024-08-24] MEDS: amLODIPine 2.5 MG TAB 5 MG PO (09:16)
[2024-08-24 11:09] VITALS: BP 122/63; PULSE 60; RESP 18; TEMP 36.6; O2SAT 98
--- NOTE | 2024-08-24 11:34 | W.PM.DS.N ---
Date of service: 08/24/24 Time of Service: 11:35 DS: Diagnosis Discharge Diagnosis (1) Chest pain: Status: Acute (2) Rib fracture: Status: Acute (3) Aortic aneurysm, thoracic: Status: Acute (4) Chronic kidney disease, stage 3: Discharge Plan Disposition Patient Disposition: Home Condition: Improving Discharge Details Reason For Visit: Closed left rib fracture, acute cholecystitis, AAA Admit Date/Time: 08/23/24 05:18 Admit Provider: Bello Lassiter Attending Provider: Bello Lassiter Primary Care Provider: Maximino Lucero Hospital Course Hospital Course: This 88-year-old gentleman with a PMHx endovascular repair of a AAA with chronic leaking with endovascular stent graft, myocardial infarction with stent, diabetes, stage IV CKD, CHF, ischemic cardiomyopathy, previous colectomy, high cholesterol, atrial fibrillation on Eliquis, palliattie care patient on oral morphine presented with anterior chest wall pain after minor trauma from falling on a thick cardboard box and hitting his right chest and found to have a subacute left second closed rib fracture. ACS evaluation was negative. CT was suspicious for acute cholecystitis without common bile duct dilatation or evidence of stones along with a new suprarenal abdominal aortic aneurysm which is 6.3 cm. CBC showed leukocytosis with chronic stable anemia; Cr was 2.8 around baseline with a GFR 21. The patient was treated with IV zosyn and admitted to medical surgical floor by the hospitalist for further evaluation. Abdominal ultrasound showed no cholecystitis and as per surgical consult no further workup was needed. [facility] vascular surgeon Dr. Esposito was consulted regarding suprarenal abdominal aortic aneurysm w/o recommendation for emergent vascular intervention in the setting of prospective need to for hemodialysis if contrast was to be given to patient. The patient also had a similar discussion with his vascular surgeon in 05/2024 where he declined to proceed with interventions as the situation was similar. The patient remained hemodynamically stable, and afebrile The patient will be discharged home on Augmentin 500/125 mg oral BID and a probiotic, resumption of outpatient physical therapy and a PCP follow-up within 7 days of discharge. Recommendations for PCP follow-up: CBC and BMP Discussed need for further vascular follow-up Discussed with Dr Moise Home Meds and New Rx's Prescriptions: New Bio-K plus 50 billion cell capsule,delayed release(DR/EC) 1 cap PO DAILY Qty: 10 0RF amoxicillin-pot clavulanate 500-125 mg tablet 1 tab PO Q12H Qty: 10 0RF Continued tamsulosin 0.4 mg capsule 0.4 mg PO DAILY insulin aspart U-100 [Novolog FlexPen U-100 Insulin] 100 unit/mL (3 mL) insulin pen 3 unit subcut TID amlodipine 2.5 mg tablet 5 mg PO DAILY allopurinol 100 mg tablet 100 mg PO .every other day insulin glargine 100 unit/mL solution 5 unit subcut QPM morphine concentrate 100 mg/5 mL (20 mg/mL) solution 40 mg PO Q1-4H MDD 480 PRN (Reason: pain) Qty: 15 0RF Rx Instructions: Emergency use in case of abdominal aortic aneurysm rupture magnesium oxide 400 mg magnesium capsule 400 mg PO BID Patient Comments: pt. reports he has been out of it nitroglycerin [Nitrostat] 0.4 mg tablet, sublingual 0.4 mg sublingual Q5 MIN PRN X3 PRN Rx Instructions: as a single dose; administer 5-10 minutes before situation known to precipitate angina attack apixaban 2.5 mg tablet 2.5 mg PO BID Patient Comments: 11/27/20 started at [facility] due to elevated creatinine 2.4 RH alogliptin 6.25 mg tablet 6.25 mg PO DAILY calcitriol 0.25 mcg capsule 0.25 mcg PO DAILY cholecalciferol (vitamin D3) 25 mcg (1,000 unit) capsule 25 mcg PO DAILY atorvastatin [Lipitor] 40 MG tablet 40 mg PO QPM acetaminophen [Acetaminophen Extra Strength] 500 mg Tablet 1,000 mg PO Q8H PRN cyanocobalamin (vitamin B-12) 1,000 mcg Tablet 1,000 mcg PO DAILY metoprolol succinate 50 mg tablet extended release 24 hr 25 mg PO DAILY Qty: 0 0RF lidocaine 5 % ointment 1 applic topical DAILY PRN (Reason: pain) Qty: 30 0RF Discharge Instructions Referrals: Maximino Lucero [Primary Care Provider] - (Follow-up with 7 days of discharge. The patient thinks he has an appointment on 08/27/24) Activity:: Activity as Tolerated Equipment/Supplies:: No Equipment Needed Diet:: Heart healthy diabetic Discharge Orders Discharge Orders: Discharge Order (Routine); Ordered 08/24/24 Ordered By: Bozena Kyle DS: Summary Time Spent with Patient providing and/or coordinating discharge services: Greater than 30 minutes Status at Discharge Functional status at discharge: independent ambulation Overall status at discharge: patient is progressing back to baseline Mental Status: mental status grossly normal Speech and Movement: speech and movement normal Mood: congruent mood Affect: normal affect Quality:SDOH Health Related Social Needs: Health related social needs inadequate housing (Z59.1), food insecurity (Z59.41), problems related to housing/economic circumstances (Z59.89) Health related social needs details Pt states he is worried about financing to get pellets for the stove and food. Health related social needs details: Pt states he is worried about financing to get pellets for the stove and food. Exam Narrative Exam Narrative: Frail 88 yo patient appearing of stated age, caregiver is bedside and actively participate in visit. A& O X3, no acute distress, heart is regular, no murmur , positive radial and pedal pulses, telemetry HR 53- 1 degree AVB; unlabored breathing, clear lungs no further report of rib pain with deep breathing, ABD is large, non-distended, soft and non-tender, negative CVA tenderness, skin is well perfused -no cyanosis Psych Mental Status: mental status grossly normal Speech and Movement: speech and movement normal Mood: congruent mood Affect: normal affect DS: Data Vitals/I&O Vitals and I&O: Vital Signs Temperature 36.6 C 08/24/24 11:09 Temperature Source Temporal Artery Scan 08/24/24 11:09 Pulse 60 08/24/24 11:09 Pulse Rhythm Regular 08/23/24 07:36 Pulse 52 L 08/23/24 04:50 Respiratory Rate 18 08/24/24 11:09 Respiratory Effort Normal, Non-Labored 08/23/24 07:36 Respiratory Depth Normal 08/23/24 07:36 Respiratory Pattern Normal 08/23/24 07:36 Blood Pressure 122/63 08/24/24 11:09 Blood Pressure Mean 94 08/23/24 03:31 Pulse Oximetry 98 08/24/24 11:09 Oxygen Delivery Method Room Air 08/24/24 11:09 Oxygen Flow Rate 0 08/24/24 11:09 Pain Level 0 08/24/24 11:09 Comment MAP 84. 08/24/24 07:31 Comment right arm 08/23/24 02:37 Intake & Output 08/23/24 08/23/24 08/24/24 11:59 23:59 11:59 Intake Total 180 / 230 50 / 230 50 / 50 Output Total 550 / 550 Balance 180 / -320 -500 / -320 50 / 50 Weight 78.106 kg 78 kg Intake: IV 60 / 110 50 / 110 50 / 50 Oral 120 / 120 Output: Urine 550 / 550 Other: Urine Color Yellow Urine Appearance Clear Clear Urine Odor None Stool Size Large Stool Characteristics Soft Data Completed and Pending Labs on day of discharge: Labs from last 24 hours 08/24/24 06:30 WBC 13.00 H RBC 3.74 L Hgb 10.7 L Hct 34.1 L MCV 91 MCH 28.6 MCHC 31.4 L RDW 13.5 Plt Count 251 MPV 10.1 Immature Gran % 0.5 Neutrophils % 72.8 Lymphocytes % 14.7 Monocytes % 9.6 Eosinophils % 2.2 Basophils % 0.2 Nucleated RBC % 0.0 Absolute Neutrophils 9.46 H Absolute Lymphocytes 1.91 Absolute Monocytes 1.25 H Absolute Eosinophils 0.29 Absolute Basophils 0.03 Sodium 139 Potassium 4.2 Chloride 107 Carbon Dioxide 26.1 Anion Gap 5.9 BUN 36 H Creatinine 2.8 H Est GFR (CKD-EPI 2020) 21.17 Glucose 101 Calcium 8.8 Magnesium 2.0 Total Bilirubin 0.5 AST 16 ALT 15 L Alkaline Phosphatase 129 H Total Protein 5.9 L Albumin 2.2 L PFSH All Active Problems (Updated 08/23/24 @ 14:36 by Erik Schaffer MD) Rib fracture (Acute) BPH (benign prostatic hyperplasia) (Chronic) Abdominal aortic aneurysm (Acute) Aortic aneurysm, thoracic (Acute) Acute cholecystitis (Acute) Closed rib fracture (Acute) Unsteady gait (Acute) Impaired instrumental activities of daily living (Acute) Left ankle sprain (Acute 05/03/24) Weight loss (Acute) Deficit in activities of daily living (ADL) (Acute) Hard of hearing (Acute) Financial difficulties (Acute) Palliative care patient (Acute) ACP (advance care planning) (Acute) Fracture of proximal end of left humerus (Acute ~02/06/24) Gout of left knee (Chronic) Trigger thumb of left hand (Acute) Acute kidney injury superimposed on CKD (Acute) Severe sepsis (Acute) Chronic kidney disease, stage 4 (severe) (Chronic) HTN (hypertension) (Chronic) CAD (coronary artery disease) (Chronic) Dermatitis (Acute) Atrial fibrillation (Chronic) Chest pain (Acute) Acute non-ST elevation myocardial infarction (NSTEMI) (Acute) Wound dehiscence, surgical (Acute) Type 2 diabetes mellitus (Chronic) Fatty liver (Acute) Mass of salivary gland (Acute) Ischemic cardiomyopathy (Chronic) Skin lesion of scalp (Acute) Anemia (Chronic) Hearing impairment (Acute) Medical History (Updated 08/23/24 @ 14:36 by Erik Schaffer MD) Chronic kidney disease, stage 3 HLD (hyperlipidemia) Former smoker Balanitis Atrial flutter Edema Cruz's disease Phimosis (10/17/15) Erectile dysfunction AAA (abdominal aortic aneurysm) Hypomagnesemia CHF (congestive heart failure) Renal insufficiency 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) Diverticulitis of large intestine with abscess Hypercholesterolemia Diabetes mellitus Myocardial infarct Phimosis Surgical History Status post colostomy takedown (~03/01/20) S/P left hemicolectomy (~07/19/18) H/O phimosis s/p repair History of heart artery stent S/P hernia repair History of endovascular stent graft for abdominal aortic aneurysm (AAA) Social History Smoking/Tobacco Use Status: Former Tobacco Use Quit Date: 01/03/17 Tobacco: How many years used: 60 Smoking risk assessment performed?: Yes Alcohol Intake: former Drug use: Never Substance use type: does not use Housing: house Do you feel safe at home: Yes Do you feel safe in your relationship?: Yes Additional Social history: at side Time Spent with Patient Time Spent with Patient: 70-84 minutes4 Time was spent: preparing to see the patient(eg.review tests), obtaining and/or reviewing separately otained hiistory, ordering medications,tests, procedures, referring, communicating with other health director medicare sales, indepentently interpreting results, counseling the patient and care coordination
[2024-08-24] MEDS: Insulin Aspart 300 UNITS/3 ML PEN SC (12:18)
--- NOTE | 2024-08-24 13:03 | PT.INTREAT ---
PT Notes Visit Reasons: Closed left rib fracture, acute cholecystitis, AAA Inpatient Physical Therapy Treatment Note [facility] Date: 08/24/2024 PRECAUTIONS:Standard SUBJECTIVE: Pt reports he feels ready to go home and hopes he doesn't have to come back again OBJECTIVE: presented upright in bed watching TV? PAIN: denied VITALS: ?monitored via telemetry throughout Therapeutic Activities (61495o[]): Direct one-on-one instruction in dynamic activities to improve functional performance. ?? Patient education regarding pacing and breathing techniques to maximize activity tolerance? Independent bed mobility including rolling, repositioning supine to from sit Independent transfers without AD ambulation?: Facilitated safe and correct performance of level surface ambulation covering a distance of 125 feetx2 with SBA one stand rest between distances.Pt demonstrates wide TONY intermittent stagger step with distances > 50 feet. Did not report of any increased pain. Denied headache, chest pain, and lightheadedness throughout activity. Minimal verbal cueing provided for AD management, directional changes, and posture. ? Stairs: 3 trials of 2 6 inch steps with rail SBA step to pattern. ? Therapeutic Exercises ([id number][]): Direct one-on-one instruction in therapeutic exercises to develop strength, endurance, range of motion and flexibility. ? Exercises ?supine bridge x 5 reps, SKTC R/L 5 reps with hold, heelslides, stand heelraises. mini squat supported, hip abduction ? Provided skilled instruction in proper exercise performance Provided skilled tactile cues to facilitate proper muscle recruitment/ form ASSESSMENT:? Pt able to demonstrate his low back HEP issued by outpatient PTwith cues for proper technique . Pt continues to demonstrate intermittent stagger step with long distances >50 feet. he is able to regain / stabilize without external support however pt may benefit from use of cane . PLAN: cont with POC TREATMENT CODE/TIME: 42530, 94400/ [id number] DISCHARGE RECOMMENDATION: Home with resumption of Outpatient PT
--- NOTE | 2024-08-24 13:23 | CMPROGNOTE_ITS ---
Date of service: 08/24/24 Time of Service: 13:23 Care Management Progress Note Progress Note Text Progress Note Text: Ovidio was sitting up in the bed when CM met with him and his partner, Montse, today. Ovidio looked grumpy. When CM asked about this he stated, well, it looks like I'm gonna . He was referring to his aneurysm, which has grown larger. CM got the provider. Ovidio stated that he now feels he would like some treatment for the aneurysm. Provider is calling [facility], where Ovidio has a vascular surgeon, for a consult. Ovidio was very clear that he would want treatment if it was available to him. Discharge Potential Discharge Needs: Consult (vascular surgery) and PCP F/U Appt Anticipated Barriers to Discharge: None Identified Patient/Family Education Needs: Review discharge instructions, discuss Ask Me Three Transportation: Private vehicle (if Ovidio is discharged home he will transport in a private vehicle with Montse, if to [facility], via ambulance as coordinated by the nursing supervisor mattress and boxsprings.) Plan: Ovidio will either be discharged home today, or he will be accepted to [facility]. Regardless, he will f/u with his PCP and vascular surgery. He will continue to attend outpatient PT and continue per his discharge plan of care. CM will continue to follow. Social Determinants of Health Screening Social Determinants of health last assessed in clinic: 08/24/24 Will the Patient Participate in the Screening?: Yes Do you worry about having a steady place to live?: no Problems where you live: mold and lead paints of pipes In the past 12 months, have you had to go without electric, gas, oil or water in your home?: no 1. Within the past 12 months, we worried whether our food would run out before we got money to buy more.: Sometimes true 2. Within the past 12 months, the food we bought just didn't last and we didn't have money to get more.: Sometimes true Has lack of transportation kept you from medical appointments or from doing things needed for daily living?: no Has anyone in your life made you feel unsafe or unsupported?: no How hard is it for you to pay for the very basics like food, housing, medical care, and heating? Would you say it is:: Somewhat hard Do you want help finding or keeping work or a job?: I do not need or want help If for any reason you need help with day-to-day activities such as bathing, preparing meals, shopping, managing finances, etc., do you get the help you need?: I don?t need any help How often do you feel lonely or isolated from those around you?: Never Do you speak a language other than [place] at home?: No Does the patient want assistance with any of the above?: No Health Related Social Needs Health related social needs: inadequate housing (Z59.1), food insecurity (Z59.41) and problems related to housing/economic circumstances (Z59.89) Health related social needs details: Pt states he is worried about financing to get pellets for the stove and food.
--- NOTE | 2024-08-24 14:17 | CMDISCH_ITS ---
Date of service: 08/24/24 Time of Service: 14:17 LACE Index Scoring Tool Questions: Length of Stay (in days): 1 Was the patient admitted via the E.D.?: No Comorbidities: Previous M.I., Diabetes w/o Complication, Congestive Heart Failure and Liver or Renal Disease E.D. Visits: 3 Answers: Total Score: 9 Risk of Readmission: Low Risk Care Management Discharge Plan Reason for Hospitalization: chest pain s/p fall - rib fracture ? choleycystitis Discharge Plan: Ovidio is discharged home today with no new services. He will be on antibiotics for 5 days, and will f/u with his PCP. Provider recommends PCP discussion regarding vascular f/u. Ovidio will continue per his discharge plan, which includes outpatient PT, and transport home with Montse in a private vehicle. Patient/Family Education Needs: Review of discharge instructions, activity, limitations, and discuss Ask me 3. Services Needed at Discharge: Physical Therapy (continued outpatient PT) SDOH Health Related Social Needs: Health related social needs inadequate housing (Z59.1) , food insecurity (Z59.41), problems related to housing/economic circumstances (Z59.89) Health related social needs details Pt states he is wo rried about financing to get pellets for the stove and food. Health related social needs details: Pt states he is worried about financing to get pellets for the stove and food.
== END 2024-08-24 15:03 | disposition home or self-care (01) | DRG 206 ==
LOC: ER 05:53 → MS 06:32
PROVIDERS: Admitting Provider Family Medicine; Emergency Provider Student in an Organized Health Care Education/Training Program; PCP Student in an Organized Health Care Education/Training Program; Responsible Provider Nurse Practitioner Acute Care; Visit Provider Family Medicine
DX: S22.31XA Fracture of one rib, right side, initial encounter for closed fracture (principal); I13.0 Hypertensive heart and chronic kidney disease with heart failure and stage 1 through stage 4 chronic kidney disease, or unspecified chronic kidney disease; I50.32 Chronic diastolic (congestive) heart failure; N18.4 Chronic kidney disease, stage 4 (severe); N13.8 Other obstructive and reflux uropathy; I71.41 Pararenal abdominal aortic aneurysm, without rupture; E11.22 Type 2 diabetes mellitus with diabetic chronic kidney disease; I48.0 Paroxysmal atrial fibrillation; Z79.4 Long term (current) use of insulin; D63.1 Anemia in chronic kidney disease; I25.10 Atherosclerotic heart disease of native coronary artery without angina pectoris; E83.42 Hypomagnesemia; I71.21 Aneurysm of the ascending aorta, without rupture; M1A.3620 Chronic gout due to renal impairment, left knee, without tophus (tophi); R26.81 Unsteadiness on feet; R63.4 Abnormal weight loss; Z59.9 Problem related to housing and economic circumstances, unspecified; I25.2 Old myocardial infarction; K76.0 Fatty (change of) liver, not elsewhere classified; I25.5 Ischemic cardiomyopathy; L11.1 Transient acantholytic dermatosis [Grover]; E78.00 Pure hypercholesterolemia, unspecified; Z95.5 Presence of coronary angioplasty implant and graft; Z95.828 Presence of other vascular implants and grafts; Z90.49 Acquired absence of other specified parts of digestive tract; Z87.891 Personal history of nicotine dependence; Z68.28 Body mass index [BMI] 28.0-28.9, adult; D72.829 Elevated white blood cell count, unspecified; Z51.5 Encounter for palliative care; N40.1 Benign prostatic hyperplasia with lower urinary tract symptoms; W01.198A Fall on same level from slipping, tripping and stumbling with subsequent striking against other object, initial encounter; Z66 Do not resuscitate
CPT/HCPCS: 00123; 36415; 71250; 80053; 82805; 85027; 87040; 87637; 93005; 96365; 96366; 97110; 97162; 97530; 99285; 76705; 81003; 81015; 83735; 83880; 84484; 85025; 85610; 85730; 93010; 99223; 99239; J1815; J1885; J2470; J2543

== ENCOUNTER 2024-08-25 00:31 | Emergency (ER) | payer OTHER, SELFPAY ==
[2024-08-25 00:48] VITALS: BP 101/61; PULSE 89; RESP 22; TEMP 36.5; O2SAT 95
[2024-08-25] MEDS: predniSONE 10 MG TAB PO (01:58)
[2024-08-25] MEDS: oxyCODONE 5 MG TAB 2.5 MG PO (01:58)
--- NOTE | 2024-08-25 02:05 | ED.GENADUL_ITS ---
Discharge Plan Disposition Patient Disposition: Home Condition: Improving Discharge Details Clinical Impression: Gout due to renal impairment, right hand Primary Care Provider: Maximino Lucero ED Provider: Maximino Whyte Home Meds and New Rx's Prescriptions: New prednisone 5 mg tablet 5 mg PO DAILY Qty: 4 0RF oxycodone-acetaminophen 2.5-325 mg tablet 1 tab PO Q12H PRN (Reason: pain) Qty: 14 0RF No Action tamsulosin 0.4 mg capsule 0.4 mg PO DAILY insulin aspart U-100 [Novolog FlexPen U-100 Insulin] 100 unit/mL (3 mL) insulin pen 3 unit subcut TID amlodipine 2.5 mg tablet 5 mg PO DAILY allopurinol 100 mg tablet 100 mg PO .every other day insulin glargine 100 unit/mL solution 5 unit subcut QPM morphine concentrate 100 mg/5 mL (20 mg/mL) solution 40 mg PO Q1-4H MDD 480 PRN (Reason: pain) Qty: 15 0RF Rx Instructions: Emergency use in case of abdominal aortic aneurysm rupture magnesium oxide 400 mg magnesium capsule 400 mg PO BID Patient Comments: pt. reports he has been out of it nitroglycerin [Nitrostat] 0.4 mg tablet, sublingual 0.4 mg sublingual Q5 MIN PRN X3 PRN Rx Instructions: as a single dose; administer 5-10 minutes before situation known to precipitate angina attack apixaban 2.5 mg tablet 2.5 mg PO BID Patient Comments: 11/27/20 started at [facility] [place] due to elevated creatinine 2.4 RH alogliptin 6.25 mg tablet 6.25 mg PO DAILY calcitriol 0.25 mcg capsule 0.25 mcg PO DAILY cholecalciferol (vitamin D3) 25 mcg (1,000 unit) capsule 25 mcg PO DAILY atorvastatin [Lipitor] 40 MG tablet 40 mg PO QPM acetaminophen [Acetaminophen Extra Strength] 500 mg Tablet 1,000 mg PO Q8H PRN cyanocobalamin (vitamin B-12) 1,000 mcg Tablet 1,000 mcg PO DAILY metoprolol succinate 50 mg tablet extended release 24 hr 25 mg PO DAILY Qty: 0 0RF amoxicillin-pot clavulanate 875-125 mg tablet 1 tab PO BID Patient Comments: TAKE ONE TABLET BY MOUTH TWICE A DAY FOR 10 DAYS Bio-K plus 50 billion cell capsule,delayed release(DR/EC) 1 cap PO DAILY Qty: 10 0RF amoxicillin-pot clavulanate 500-125 mg tablet 1 tab PO Q12H Qty: 10 0RF Discharge Instructions Instructions: Gout ED Additional Instructions: Take 1 prednisone tablet daily for the next 4 days, beginning tomorrow. You have already been given a dose for today. Continue to take the oral allopurinol every day as previously directed. The combination of these medication should speed relief from the gout flare. You can continue to take two 325 mg acetaminophen tablets every 4 hours as needed for symptoms of pain. You can take one of the combination oxycodone/acetaminophen tablets every 12 hours as needed for additional pain relief. Expect symptoms to resolve slowly over the next 1 to 3 days. Follow-up with your regular primary care doctor for reevaluation and further management if symptoms or not improving with this care plan. You can always return to the ER for any new concerns or sudden changes in your health which you feel requires emergency medical attention. Discharge Data Discharge Physician: Maximino Whyte [facility] General Date/Time Provider Initiated Documentation: 08/25/24 00:42 . HPI Narrative: The patient is an 88-year-old male, recently discharged from the emergency department yesterday after being inpatient for several days and being evaluated for a large aortic aneurysm. The patient had gone home from here and ate some fried chicken for dinner in the afternoon. Shortly thereafter he began to complain of gradually worsening pain in his right wrist. The patient developed some focal redness in his right wrist at the base of the thenar eminence and states that it hurts about it feels like it is broke. The patient does have a history of gout in the past and his left knee for which he chronically takes allopurinol. There do not appear to be any puncture sites or blood draw sites from the area of the dorsal right wrist where the redness is located. Related Data Home Medications ?Medication ?Instructions ?Recorded ?Confirmed atorvastatin 40 mg tablet (Lipitor) 40 mg PO QPM 09/20/17 08/25/24 magnesium oxide 400 mg PO BID 01/14/20 08/25/24 nitroglycerin 0.4 mg sublingual 0.4 mg sublingual Q5 MIN PRN X3 PRN 01/14/20 08/25/24 tablet (Nitrostat) acetaminophen 500 mg tablet 1,000 mg PO Q8H PRN 02/29/20 08/25/24 (Acetaminophen Extra Strength) cyanocobalamin (vitamin B-12) 1,000 mcg PO DAILY 03/01/20 08/25/24 1,000 mcg tablet tamsulosin 0.4 mg capsule 0.4 mg PO DAILY 11/27/20 08/25/24 apixaban 2.5 mg tablet 2.5 mg PO BID 05/31/21 08/25/24 alogliptin 6.25 mg tablet 6.25 mg PO DAILY 10/07/23 08/25/24 calcitriol 0.25 mcg capsule 0.25 mcg PO DAILY 10/07/23 08/25/24 cholecalciferol (vitamin D3) 25 25 mcg PO DAILY 10/07/23 08/25/24 mcg (1,000 unit) capsule metoprolol succinate 50 mg 25 mg (1/2 x 50 mg) PO DAILY #0 10/07/23 08/25/24 tablet,extended release 24 hr tabs allopurinol 100 mg tablet 100 mg PO .every other day 01/21/24 08/25/24 insulin glargine 100 unit/mL 5 unit subcut QPM 01/21/24 08/25/24 subcutaneous solution amlodipine 2.5 mg tablet 5 mg PO DAILY 03/16/24 08/25/24 insulin aspart U-100 100 unit/mL 3 unit subcut TID 03/16/24 08/25/24 (3 mL) subcutaneous pen (Novolog FlexPen U-100 Insulin aspart) morphine concentrate 100 mg/5 mL 40 mg (2 mL) PO Q1-4H PRN pain #15 07/15/24 08/25/24 (20 mg/mL) oral solution mL L. acidophilus,casei,rhamnosus 50 1 cap PO DAILY #10 caps 08/24/24 08/25/24 billion cell capsule,delayed release (Bio-K plus) amoxicillin 500 mg-potassium 1 tab PO Q12H #10 tabs 08/24/24 08/25/24 clavulanate 125 mg tablet amoxicillin 875 mg-potassium 1 tab PO BID 08/25/24 08/25/24 clavulanate 125 mg tablet oxycodone-acetaminophen 2.5 mg-325 1 tab PO Q12H PRN pain #14 tabs 08/25/24 mg tablet prednisone 5 mg tablet 5 mg PO DAILY #4 tabs 08/25/24 Previous Rx's ?Medication ?Instructions ?Recorded metoprolol succinate 50 mg 25 mg (1/2 x 50 mg) PO DAILY #0 10/07/23 tablet,extended release 24 hr tabs morphine concentrate 100 mg/5 mL 40 mg (2 mL) PO Q1-4H PRN pain #15 07/15/24 (20 mg/mL) oral solution mL L. acidophilus,casei,rhamnosus 50 1 cap PO DAILY #10 caps 08/24/24 billion cell capsule,delayed release (Bio-K plus) amoxicillin 500 mg-potassium 1 tab PO Q12H #10 tabs 08/24/24 clavulanate 125 mg tablet oxycodone-acetaminophen 2.5 mg-325 1 tab PO Q12H PRN pain #14 tabs 08/25/24 mg tablet prednisone 5 mg tablet 5 mg PO DAILY #4 tabs 08/25/24 Allergies Allergy/AdvReac Type Severity Reaction Status Date / Time adhesive Allergy Severe significant Verified 08/23/24 02:22 skin reaction, swelling, erythema, discomfort neomycin Allergy Unknown Verified 08/23/24 02:22 General Stated Complaint: Orthopedic ASTON: 3 Exam Skin Other: There is a patch of redness overlying the dorsal right wrist at the radius intersection with the thenar eminence measuring approximately 4 to 5 cm in diameter with irregular borders. There is pain to even light touch of the area. Neuro General: patient alert, patient awake, patient oriented x3, moves all extremities, no focal motor deficits and CN's II-XI intact bilaterally Extrem Other: There are distally palpable pulses in the radius and ulnar distribution of the bilateral upper extremities. Course Vital Signs Vital signs: Vital Signs Temperature 36.5 C 08/25/24 00:48 Pulse 89 08/25/24 00:48 Respiratory Rate 22 08/25/24 00:48 Blood Pressure 101/61 08/25/24 00:48 Pulse Oximetry 95 08/25/24 00:48 Temperature 36.5 C 08/25/24 00:48 Temperature Source Temporal Artery Scan 08/25/24 00:48 Pulse 89 08/25/24 00:48 Respiratory Rate 22 08/25/24 00:48 Blood Pressure 101/61 08/25/24 00:48 Blood Pressure Position Sitting 08/25/24 00:48 Pulse Oximetry 95 08/25/24 00:48 Oxygen Delivery Method Room Air 08/25/24 00:48 Oxygen Flow Rate 0 08/25/24 00:48 Pain Level 10 08/25/24 00:48 Medical Decision Making The patient was seen and examined. His symptoms appear to be consistent with an early gout flare. The patient currently takes 100 mg of oral allopurinol daily as he is a chronic kidney disease patient. The patient was given 10 mg of oral prednisone here and 2.5 mg of oral oxycodone to help with pain relief. I will recommend that the patient continue to take 5 mg of oral prednisone for the next 4 days and I will prescribe him some very low-dose oral oxycodone to help augment oral acetaminophen for relief of his symptoms. Primary care follow-up is recommended for reevaluation as I think that this is a primary gout flare. Quality:SDOH Health Related Social Needs: Health related social needs problems related to housin g/economic circumstances (Z59.89) Health related social needs details paying for medicat ions r/t issues w/ rx coverage thru [facility] All Active Problems (Updated 08/25/24 @ 02:09 by Maximino Whyte MD) Gout due to renal impairment, right hand (Acute) Rib fracture (Acute) BPH (benign prostatic hyperplasia) (Chronic) Abdominal aortic aneurysm (Acute) Aortic aneurysm, thoracic (Acute) Closed rib fracture (Acute) Unsteady gait (Acute) Impaired instrumental activities of daily living (Acute) Left ankle sprain (Acute 05/03/24) Weight loss (Acute) Deficit in activities of daily living (ADL) (Acute) Hard of hearing (Acute) Financial difficulties (Acute) Palliative care patient (Acute) ACP (advance care planning) (Acute) Fracture of proximal end of left humerus (Acute ~02/06/24) Gout of left knee (Chronic) Trigger thumb of left hand (Acute) Acute kidney injury superimposed on CKD (Acute) Severe sepsis (Acute) Chronic kidney disease, stage 4 (severe) (Chronic) HTN (hypertension) (Chronic) CAD (coronary artery disease) (Chronic) Dermatitis (Acute) Atrial fibrillation (Chronic) Acute non-ST elevation myocardial infarction (NSTEMI) (Acute) Wound dehiscence, surgical (Acute) Type 2 diabetes mellitus (Chronic) Fatty liver (Acute) Mass of salivary gland (Acute) Ischemic cardiomyopathy (Chronic) Skin lesion of scalp (Acute) Anemia (Chronic) Hearing impairment (Acute) Medical History (Updated 08/25/24 @ 02:09 by Maximino Whyte MD) Chest pain Chronic kidney disease, stage 3 HLD (hyperlipidemia) Former smoker Balanitis Atrial flutter Edema Grannis's disease Phimosis (10/17/15) Erectile dysfunction AAA (abdominal aortic aneurysm) Renal insufficiency 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) Diverticulitis of large intestine with abscess Hypercholesterolemia Diabetes mellitus Myocardial infarct Phimosis Surgical History Status post colostomy takedown (~03/01/20) S/P left hemicolectomy (~07/19/18) H/O phimosis s/p repair History of heart artery stent S/P hernia repair History of endovascular stent graft for abdominal aortic aneurysm (AAA) Social History Smoking/Tobacco Use Status: Former Tobacco Use Quit Date: 01/03/17 Tobacco: How many years used: 60 Smoking risk assessment performed?: Yes Alcohol Intake: former Drug use: Never Substance use type: does not use Housing: house Do you feel safe at home: Yes Do you feel safe in your relationship?: Yes Additional Social history: at side
[2024-08-25] MEDS: predniSONE 10 MG TAB 20 MG PO (02:37)
[2024-08-25] MEDS: oxyCODONE 5 MG TAB 20 MG PO (02:38)
[2024-08-25 02:40] VITALS: BP 107/63; PULSE 79; RESP 19; TEMP 36.3; O2SAT 95
== END 2024-08-25 02:40 | disposition home or self-care (01) ==
PROVIDERS: Emergency Provider Emergency Medicine Emergency Medical Services; PCP Student in an Organized Health Care Education/Training Program
DX: E11.22 Type 2 diabetes mellitus with diabetic chronic kidney disease (principal); I12.9 Hypertensive chronic kidney disease with stage 1 through stage 4 chronic kidney disease, or unspecified chronic kidney disease; N18.30 Chronic kidney disease, stage 3 unspecified; M10.341 Gout due to renal impairment, right hand; I25.10 Atherosclerotic heart disease of native coronary artery without angina pectoris; I25.2 Old myocardial infarction; Z95.5 Presence of coronary angioplasty implant and graft; Z79.4 Long term (current) use of insulin; Z79.01 Long term (current) use of anticoagulants; Z87.891 Personal history of nicotine dependence
CPT/HCPCS: 99283; J7512

== ENCOUNTER 2024-08-27 12:13 | Outpatient (REF) | payer MEDICARE, SELFPAY ==
[2024-08-27 15:21] LABS: Abs Immature Grans 0.07 10^3/uL (0.0-0.06); Absolute Basophil Count 0.05 10^3/uL (0.0-0.2); Absolute Eosinophil Count 0.22 10^3/uL (0.0-0.7); Absolute Lymphocyte Count 1.52 10^3/uL (1.2-3.4); Absolute Monocyte Count 1.21 10^3/uL (0.1-0.8); Basophils % 0.4 %; Eosinophils % 1.8 %; HCT 33.9 % (40.0-50.0); HGB 10.5 g/dL (13.5-17.5); Immature Grans % 0.6 %; Lymphocytes % 12.7 %; MCH 28.9 pg (27.0-33.0); MCV 93 fL (80-95); MPV 10.4 fL (8.0-11.0); Monocytes % 10.1 %; Neutrophils % 74.4 %; Platelet Count 290 10^3/uL (130-400); RBC 3.63 10^6/uL (4.36-5.78); RDW 13.4 % (11.8-14.1); RDW-SD 45.8 fL; WBC 11.97 10^3/uL (4.4-10.8)
[2024-08-27 15:25] LABS: Absolute Neutrophil Count 8.91 10^3/uL (1.2-6.7)
[2024-08-27 15:40] LABS: ALT 24 U/L (16-63); AST 28 U/L (15-37); Albumin 2.4 g/dL (3.4-5.0); Alkaline Phosphatase 141 U/L (46-116); Anion Gap 9.7 mmol/L (3-11); BUN 35 mg/dL (7-18); Bilirubin, Total 0.4 mg/dL (0.2-1.0); CO2 25.3 mmol/L (21.0-32.0); CREATININE 2.6 mg/dL (0.70-1.30); Calcium 9.2 mg/dL (8.5-10.1); Chloride 105 mmol/L (98-107); Estimated GFR 23.14 (mL/min/1.73m2); Glucose 157 mg/dL (74-106); Potassium 4.5 mmol/L (3.5-5.1); Sodium 140 mmol/L (136-145); Uric Acid 7.4 mg/dL (3.5-7.2)
== END 2024-08-27 12:14 | disposition home or self-care (01) ==
LOC: NCHCN 12:13
PROVIDERS: PCP Student in an Organized Health Care Education/Training Program; Visit Provider Student in an Organized Health Care Education/Training Program
DX: I10 Essential (primary) hypertension (principal)
CPT/HCPCS: 80053; 84550; 85025

== ENCOUNTER 2024-09-02 15:58 | Inpatient (IN) | payer OTHER, SELFPAY ==
[2024-09-02] VITALS (65 sets, daily range): BP systolic 137–192; BP diastolic 67–86; PULSE 37–64; RESP 18–96; TEMP 36.3; O2SAT 92–100
--- NOTE | 2024-09-02 16:23 | DI.CT_ITS ---
Exam(s) CT ABDOMEN PELVIS WO EXAM: CT ABDOMEN PELVIS WO CLINICAL HISTORY: right flank pain, hx AAA repair. TECHNIQUE: Imaging Protocol: Axial computed tomography images with coronal and sagittal reformatted images were created and reviewed. Oral: no COMPARISON: CT CT THORAX ABD/PEL CTA from 01/28/[address] ABDOMEN PELVIS WO from 05/24/2024 FINDINGS: Lung Bases: No acute findings. Liver: Normal density. No suspicious mass. Gallbladder and biliary tract: No radiodense calculus or biliary dilation. Pancreas: Normal density. No abnormal calcifications or inflammatory process. Spleen: Normal. Kidneys: Normal size, contour and axis. No radiodense stones. No obstructive uropathy. No suspicious masses seen. Adrenal glands: No masses seen. Lymph nodes: Within normal limits. Vasculature: An aorto bi-iliac stent is again noted extending from above the level of the renal arter ies through the common iliac arteries. The saccular infrarenal aneurysm the size appears stable from the prior exam, 10 cm in diameter. An area of anterior outpouching which appears unchanged. The fo juan manuel aneurysm at the level of the renal arteries appears stable. Soft tissues: There is enlargement of the left psoas muscle with some low-density material which appe ars contiguous with the aneurysm. The area of low density measures approximately 8.5 x 5.0 by 4.5 cm . This could represent psoas hematoma related to rupture of the aneurysm versus abscess Bladder: No wall thickening. No mass or calculi. Bowel: No obstruction or bowel wall thickening. Peritoneal cavity: No ascites. No focal collection. No mesenteric inflammatory response. Reproductive organs: Prostate is enlarged. Bones: Unremarkable for age. IMPRESSION: Stable size of 10 centimeter infrarenal abdominal aortic aneurysm with aorto bi-iliac stent in place. Enlargement of left psoas muscle with area of low density. This appears contiguous with the aneury sm and could represent rupture of the aneurysm into the psoas muscle versus psoas abscess. Findings called to Dr. Burgos of the emergency department. RADIATION DOSE DELIVERED: Total DLP DATA REPOSITORY: All CT scans at this facility are submitted to the National Radiology Data Registry (NRDR) Dose Index Registry (DIR) with the [employer] (A[employer]). RADIATION OPTIMIZATION: All CT scans at this facility use at least one of these dose optimization te chniques: automated exposure control; mA and/or kV adjustment per patient size (includes targeted exa ms where dose is matched to clinical indication); or iterative reconstruction.
--- NOTE | 2024-09-02 16:25 | ED.GENADUL_ITS ---
Discharge Plan Disposition Patient Disposition: Admit to [facility] Condition: Stable Discharge Details Chief Complaint: FlankPain Clinical Impression: Abdominal aortic aneurysm, Mycotic aneurysm, Abscess, psoas Primary Care Provider: Maximino Lucero ED Provider: Isac Burgos [place] Meds and New Rx's Prescriptions: No Action tamsulosin 0.4 mg capsule 0.4 mg PO DAILY insulin aspart U-100 [Novolog FlexPen U-100 Insulin] 100 unit/mL (3 mL) insulin pen 3 unit subcut TID oxycodone-acetaminophen 2.5-325 mg tablet 1 tab PO Q6H MDD 4 PRN (Reason: pain) Qty: 14 0RF morphine concentrate 100 mg/5 mL (20 mg/mL) solution 40 mg PO Q1-4H MDD 480 PRN (Reason: pain) Qty: 15 0RF Rx Instructions: severe pain associated w/suspected rupture of AAA Emergency action plan for rupture of AAA - call 911 prior to administering medication amlodipine 2.5 mg tablet 5 mg PO DAILY allopurinol 100 mg tablet 100 mg PO .every other day insulin glargine 100 unit/mL solution 5 unit subcut QPM magnesium oxide 400 mg magnesium capsule 400 mg PO BID Patient Comments: pt. reports he has been out of it nitroglycerin [Nitrostat] 0.4 mg tablet, sublingual 0.4 mg sublingual Q5 MIN PRN X3 PRN Rx Instructions: as a single dose; administer 5-10 minutes before situation known to precipitate angina attack apixaban 2.5 mg tablet 2.5 mg PO BID Patient Comments: 11/27/20 started at [facility] due to elevated creatinine 2.4 RH alogliptin 6.25 mg tablet 6.25 mg PO DAILY calcitriol 0.25 mcg capsule 0.25 mcg PO DAILY cholecalciferol (vitamin D3) 25 mcg (1,000 unit) capsule 25 mcg PO DAILY atorvastatin [Lipitor] 40 MG tablet 40 mg PO QPM acetaminophen [Acetaminophen Extra Strength] 500 mg Tablet 1,000 mg PO Q8H PRN cyanocobalamin (vitamin B-12) 1,000 mcg Tablet 1,000 mcg PO DAILY metoprolol succinate 50 mg tablet extended release 24 hr 25 mg PO DAILY Qty: 0 0RF Bio-K plus 50 billion cell capsule,delayed release(DR/EC) 1 cap PO DAILY Qty: 10 0RF HPI General Date/Time Provider Initiated Documentation: 09/02/24 16:13 . Limitations to Documentation: no limitations . Information obtained by: patient . History of Present Illness 88 year old M presents to the emergency department with the chief complaint of right flank pain, described as moderate, Quality is described as aching, and is localized to the back. Patient reports no radiation. and it has been constant. No relieving factors improve symptom(s), No exacerbating factors reported . Patient notes no other symptoms.. Related Data Home Medications ?Medication ?Instructions ?Recorded ?Confirmed atorvastatin 40 mg tablet (Lipitor) 40 mg PO QPM 09/20/17 09/02/24 magnesium oxide 400 mg PO BID 01/14/20 09/02/24 nitroglycerin 0.4 mg sublingual 0.4 mg sublingual Q5 MIN PRN X3 PRN 01/14/20 09/02/24 tablet (Nitrostat) acetaminophen 500 mg tablet 1,000 mg PO Q8H PRN 02/29/20 09/02/24 (Acetaminophen Extra Strength) cyanocobalamin (vitamin B-12) 1,000 mcg PO DAILY 03/01/20 09/02/24 1,000 mcg tablet tamsulosin 0.4 mg capsule 0.4 mg PO DAILY 11/27/20 09/02/24 apixaban 2.5 mg tablet 2.5 mg PO BID 05/31/21 09/02/24 alogliptin 6.25 mg tablet 6.25 mg PO DAILY 10/07/23 09/02/24 calcitriol 0.25 mcg capsule 0.25 mcg PO DAILY 10/07/23 09/02/24 cholecalciferol (vitamin D3) 25 25 mcg PO DAILY 10/07/23 09/02/24 mcg (1,000 unit) capsule metoprolol succinate 50 mg 25 mg (1/2 x 50 mg) PO DAILY #0 10/07/23 09/02/24 tablet,extended release 24 hr tabs allopurinol 100 mg tablet 100 mg PO .every other day 01/21/24 09/02/24 insulin glargine 100 unit/mL 5 unit subcut QPM 01/21/24 09/02/24 subcutaneous solution amlodipine 2.5 mg tablet 5 mg PO DAILY 03/16/24 09/02/24 insulin aspart U-100 100 unit/mL 3 unit subcut TID 03/16/24 09/02/24 (3 mL) subcutaneous pen (Novolog FlexPen U-100 Insulin aspart) L. acidophilus,casei,rhamnosus 50 1 cap PO DAILY #10 caps 08/24/24 09/02/24 billion cell capsule,delayed release (Bio-K plus) morphine concentrate 100 mg/5 mL 40 mg (2 mL) PO Q1-4H PRN pain #15 08/30/24 09/02/24 (20 mg/mL) oral solution mL oxycodone-acetaminophen 2.5 mg-325 1 tab PO Q6H PRN pain #14 tabs 08/30/24 09/02/24 mg tablet Previous Rx's ?Medication ?Instructions ?Recorded metoprolol succinate 50 mg 25 mg (1/2 x 50 mg) PO DAILY #0 10/07/23 tablet,extended release 24 hr tabs L. acidophilus,casei,rhamnosus 50 1 cap PO DAILY #10 caps 08/24/24 billion cell capsule,delayed release (Bio-K plus) morphine concentrate 100 mg/5 mL 40 mg (2 mL) PO Q1-4H PRN pain #15 08/30/24 (20 mg/mL) oral solution mL oxycodone-acetaminophen 2.5 mg-325 1 tab PO Q6H PRN pain #14 tabs 08/30/24 mg tablet Allergies Allergy/AdvReac Type Severity Reaction Status Date / Time adhesive Allergy Severe significant Verified 09/02/24 16:03 skin reaction, swelling, erythema, discomfort neomycin Allergy Unknown Verified 09/02/24 16:03 General Stated Complaint: FlankPain ASTON: 3 Review of Systems All systems reviewed & are unremarkable except as noted in HPI and below Constitutional Constitutional: Denies chills, Denies fever(s) and Denies weakness Cardiovascular Cardiovascular: Denies chest pain and Denies dyspnea Respiratory Respiratory: Denies cough and Denies dyspnea Gastrointestinal Gastrointestinal: Denies abdominal pain, Denies nausea and Denies vomiting Musculoskeletal Musculoskeletal: Reports back pain Neurologic Neurologic: Denies weakness Psychiatric Psychiatric: Denies depression Exam Const General: no acute distress Orientation: alert HENME Head: normal to inspection Ears: external ears normal General nose exam: external nose normal Mouth: moist mucous membranes Eyes General: appearance normal, both eyes and all related structures Neck Neck: normal visual inspection Resp Effort & Inspection: normal respiratory effort and able to speak in complete sentences Cardio Rate: regular rate Back/Spine/Pelvis Back: no CVA tenderness Skin General skin exam: no rashes or lesions noted Neuro General: patient alert and patient oriented x3 Extrem General: normal to inspection Psych Mental Status: mental status grossly normal Course Vital Signs Vital signs: Vital Signs Temperature 36.3 C L 09/02/24 16:01 Pulse 61 09/02/24 16:01 Respiratory Rate 96 H 09/02/24 16:01 Blood Pressure 137/74 09/02/24 16:01 Pulse Oximetry 98 09/02/24 16:01 Temperature 36.3 C L 09/02/24 16:04 Pulse 61 09/02/24 16:04 Respiratory Rate 96 H 09/02/24 16:04 Blood Pressure 137/74 09/02/24 16:04 Pulse Oximetry 98 09/02/24 16:04 Pain Level 6 09/02/24 16:04 Medical Decision Making 88-year-old male with a history of a AAA with repair and also 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 He denies any chest pain, difficulty breathing, abdominal pain. He localizes the pain to the right lower back without any visible or palpable deformity, he has no saddle anesthesia, no midline tenderness, does have reproducible tenderness in this area. Suspect musculoskeletal back pain but given the location of the pain and given his known AAA we will proceed with CBC, CMP and a Noncon CT given he has CKD to evaluate for possible AAA rupture versus kidney stone. Labs show mild leukocytosis of 13 and looks like he always has a low-level leukocytosis. CT shows continued 10 cm infrarenal aneurysm but also now has a area of the psoas muscle that is enlarged and contiguous with the aneurysm which could represent rupture versus abscess. Patient is stable. I talked with him and it is unclear if he at this point which is 1 be made tomorrow if he would want further intervention. While he is deciding I will reach out to [facility] vascular surgery to have them review the images. spoke with vascular surgery resident Dr. Bloom who reviewed case and given his kidney function today is improved from baseline recommends obtaining CTA to evaluate further the etiology of this mass in the psoas. CT shows that is likely a psoas abscess but also has signs that he likely has a mycotic aneurysm as well. I again spoke with Dr. Bloom and she states that the definitive treatment for this would be an open abdominal aneurysm repair which the patient would not likely survive. Patient has also reiterated he is not wanting to have any significant interventions or surgeries. I did discuss that we could potentially do antibiotics but this likely will help long-term as the aneurysm would continue to be infected. After long discussion with him he is decided that he does not want to pursue any further medical treatment and his main goal would be to be comfortable. He is still having a fair amount of back pain, 7 trouble getting out of bed. I will discuss with the hospitalist about admission for pain control and seeing palliative care in the morning. Differential Diagnosis Differential Diagnosis: AAA rupture, kidney stone, musculoskeletal back pain Medical Records Medical records reviewed: Yes I reviewed the patient's medical records. Imaging Data Radiologic Study: Attestation: I personally reviewed and interpreted this imaging study as follows: Imaging: CT Scan Radiologist's impression: IMPRESSION: Stable size of 10 centimeter infrarenal abdominal aortic aneurysm with aorto bi- iliac stent in place. Enlargement of left psoas muscle with area of low density. This appears contiguous with the aneurysm and could represent rupture of the aneurysm into the psoas muscle versus psoas abscess. Radiologic Study #2: Attestation: I personally reviewed and interpreted this imaging study as follows: Imaging: CT Scan Radiologist's impression: IMPRESSION: 1. Aortic bi-iliac stent graft is in satisfactory position; increased size of a now 12 x 11 cm excluded/chronically thrombosed infrarenal aneurysm extending into the bilateral common iliac space; the anterior excluded aneurysm sac appears mildly thick walled and enhancing. Inflammation or infection of the anterior excluded sac is possible. 2. Chronic upper stent graft endoleak has greatly worsened. Lobulated aneurysm at this location, increased in complexity and volume since prior, maximal dilation of the aorta at now 65 x 56 mm at this location; no johan rupture. Mycotic aneurysm should be considered given additional aortic findings as below. 3. Likely nonacute appearing disease of the left ileus psoas; 7 x 10 x 7 cm heterogeneous lesion at this location contiguous with the infrarenal excluded aneurysm sac. Abscess must be considered. 4. Additional findings as described. 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, right hand (Acute) Rib fracture (Acute) BPH (benign prostatic hyperplasia) (Chronic) Abdominal aortic aneurysm (Acute) Aortic aneurysm, thoracic (Acute) Closed rib fracture (Acute) Unsteady gait (Acute) Impaired instrumental activities of daily living (Acute) Left ankle sprain (Acute 05/03/24) Weight loss (Acute) Deficit in activities of daily living (ADL) (Acute) Hard of hearing (Acute) Financial difficulties (Acute) Palliative care patient (Acute) ACP (advance care planning) (Acute) Fracture of proximal end of left humerus (Acute ~02/06/24) Gout of left knee (Chronic) Trigger thumb of left hand (Acute) Acute kidney injury superimposed on CKD (Acute) Severe sepsis (Acute) Chronic kidney disease, stage 4 (severe) (Chronic) HTN (hypertension) (Chronic) CAD (coronary artery disease) (Chronic) Dermatitis (Acute) Atrial fibrillation (Chronic) Acute non-ST elevation myocardial infarction (NSTEMI) (Acute) Wound dehiscence, surgical (Acute) Type 2 diabetes mellitus (Chronic) Fatty liver (Acute) Mass of salivary gland (Acute) Ischemic cardiomyopathy (Chronic) Skin lesion of scalp (Acute) Anemia (Chronic) Hearing impairment (Acute) Medical History AAA (abdominal aortic aneurysm) Atrial flutter Balanitis 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) Chest pain Chronic kidney disease, stage 3 Diabetes mellitus Diverticulitis of large intestine with abscess Edema Erectile dysfunction Former smoker Cruz's disease HLD (hyperlipidemia) Hypercholesterolemia Myocardial infarct Phimosis Phimosis (10/17/15) Renal insufficiency Surgical History H/O phimosis s/p repair History of endovascular stent graft for abdominal aortic aneurysm (AAA) History of heart artery stent S/P hernia repair S/P left hemicolectomy (~07/19/18) Status post colostomy takedown (~03/01/20) Social History Smoking/Tobacco Use Status: Former Tobacco Use Quit Date: 01/03/17 Tobacco: How many years used: 60 Smoking risk assessment performed?: Yes Alcohol Intake: former Drug use: Never Substance use type: does not use Housing: house Do you feel safe at home: Yes Do you feel safe in your relationship?: Yes Additional Social history: at side
[2024-09-02 16:58] LABS: Bilirubin Negative (Negative); Blood Trace-intact (Negative); Clarity Clear (Clear); Glucose Negative (Negative); Ketones Negative (Negative); Leukocyte Esterase Negative (Negative); Nitrite Negative (Negative); Urobilinogen 0.2 mg/dL (Up to 0.2)
[2024-09-02 17:06] LABS: Bacteria Negative HPF (Negative); C & S Indicated? No; Casts 0-2 Hyaline LPF (Negative); Crystals Rare Amorphous HPF (Negative); Epithelial Cells Rare HPF (Negative); Mucus Trace (Negative); RBC 0-2 HPF (0-2); WBC Negative HPF (0-5)
[2024-09-02 17:12] LABS: Abs Immature Grans 0.08 10^3/uL (0.0-0.06); Absolute Basophil Count 0.04 10^3/uL (0.0-0.2); Absolute Eosinophil Count 0.14 10^3/uL (0.0-0.7); Absolute Lymphocyte Count 1.72 10^3/uL (1.2-3.4); Absolute Monocyte Count 0.81 10^3/uL (0.1-0.8); Absolute Neutrophil Count 10.31 10^3/uL (1.2-6.7); Basophils % 0.3 %; Eosinophils % 1.1 %; HCT 38.1 % (40.0-50.0); HGB 12.2 g/dL (13.5-17.5); Immature Grans % 0.6 %; Lymphocytes % 13.1 %; MCV 91 fL (80-95); MPV 9.8 fL (8.0-11.0); Monocytes % 6.2 %; Neutrophils % 78.7 %; Platelet Count 297 10^3/uL (130-400); RDW 13.2 % (11.8-14.1); RDW-SD 43.4 fL
[2024-09-02] MEDS: MORPHine 4 MG/ML SYR IVP ×2 (17:23→23:37)
[2024-09-02 17:27] LABS: INR 1.1 (0.9-1.1); PTT Activated 25.9 sec (20.6-30.2); Prothrombin Time 10.9 sec (9.1-11.1)
[2024-09-02 17:33] LABS: ALT 33 U/L (16-63); AST 32 U/L (15-37); Albumin 2.8 g/dL (3.4-5.0); Alkaline Phosphatase 157 U/L (46-116); Anion Gap 8.6 mmol/L (3-11); BUN 22 mg/dL (7-18); Bilirubin, Total 0.5 mg/dL (0.2-1.0); CO2 27.4 mmol/L (21.0-32.0); Calcium 9.2 mg/dL (8.5-10.1); Chloride 106 mmol/L (98-107); Estimated GFR 31.71 (mL/min/1.73m2); Glucose 135 mg/dL (74-106); Lipase 23 U/L (<78); Magnesium 1.7 mg/dL (1.8-2.4); Potassium 4.3 mmol/L (3.5-5.1); Sodium 142 mmol/L (136-145); Total Protein 6.7 g/dL (6.4-8.2)
[2024-09-02] MEDS: HYDROmorphone 2 MG/ML SYR 1 MG IVP (18:32)
[2024-09-02] MEDS: Normal Saline 50 ML (18:33)
--- NOTE | 2024-09-02 19:15 | DI.CT_ITS ---
Exam(s) CT ABDOMEN PELVIS CTA EXAM: CT ABDOMEN PELVIS CTA CLINICAL HISTORY: ?AAA rupture. TECHNIQUE: Imaging Protocol: Axial CT angiography was performed with multi-slice acquisition and m ulti-planar and/or 3D reconstructions. CONTRAST MATERIAL: Intravenous: Omnipaque 350 Contrast volume:100 ml Oral: / no COMPARISON: CT CT ABDOMEN PELVIS WO from 05/24/[address] ABDOMEN PELVIS WO from 09/02/2024 FINDINGS: Vascular Structures: Celiac [place]:Calcification. [id number] stenosis. SMA: Calcification. Kpau-[id number] stenosis. Renal Arteries: Calcification causing severe stenosis of the right renal artery ostium moderate to se pawel stenosis of the left renal artery ostium. Aorta: Stent again noted from the proximal aorta through the iliac arteries. Infrarenal saccular aneu rysm is unchanged compared to May 2024, measuring cm in diameter. There is no evidence of active contrast extravasation. The aneurysm at and above the level of the renal arteries has mildly increased in size to 6.5 x 5.6 c m compared to 6 x 5 cm in May. A portion of the aneurysm extends superior to the stent and has a lobulated appearance. There is no evidence of contrast extravasation. Iliac Arteries: No evidence of stenosis. Common Femoral Arteries: No evidence of stenosis. Heart: Enlarged. Soft Tissues:Midline anterior abdominal wall surgical scar. Lung bases:No acute findings. Liver: Normal size. Normal density. No measurable mass. Gallbladder and biliary tract: No evidence of calculi. No gallbladder wall thickening. No biliary di lation. Pancreas: Normal density, no abnormal calcifications or inflammatory process. Spleen: Normal. Kidneys: No renal atrophy again noted. Stable renal cysts.. No obstructive uropathy. No suspicious ma sses seen. No evidence of calculi. Adrenal glands: No masses seen. Bladder: No gross wall thickening. No evidence of calculi. No evidence of mass. Bowel: No obstruction or bowel wall thickening. Diverticulosis. Sigmoid anastomosis. Peritoneal cavity: Mild edema in the paracolic gutters. No focal collection. No mesenteric inflamma tory response. Retroperitoneum: Enlargement of the left psoas muscle with heterogeneous appearance. Significant incr ease from prior exam. This contacts the level of the aneurysm. Bones: No acute findings. Lymph nodes: Within normal limits. Reproductive: Unremarkable prostate is enlarged. IMPRESSION: Bilobed abdominal aortic aneurysm with aorto bi-iliac stent within. No evidence of active contrast ex travasation. Increased size of lobulated aneurysm above the level of the stent graft. Stable size of infrarenal an eurysm at 10 cm. Increased size of left psoas muscle with heterogeneous attenuation may represent an abscess. Clinical correlation recommended. RADIATION DOSE DELIVERED: 219.61mGy.cm Total DLP DATA REPOSITORY: All CT scans at this facility are submitted to the National Radiology Data Registry (NRDR) Dose Index Registry (DIR) with the [employer] (ACR). RADIATION OPTIMIZATION: All CT scans at this facility use at least one of these dose optimization te chniques: automated exposure control; mA and/or kV adjustment per patient size (includes targeted exa ms where dose is matched to clinical indication); or iterative reconstruction.
[2024-09-02] MEDS: Normal Saline - Diluent 50 ML VIAL IJ (19:33)
[2024-09-02] MEDS: Omnipaque 350 MG/ML 100 ML BTL IJ (19:34)
--- NOTE | 2024-09-02 20:01 | DI.VRAD_ITS ---
Addendum created by Nancy Cruz MD on 09/02/2024 8:02:52 PM EDT: This report contains findings that may be critical to patient care. The pertinent findings were communicated via telephone with Isac Burgos at 20:02 EDT on 09/02/2024. The findings were acknowledged and understood. Initial report created on 09/02/2024 8:00:44 PM EDT: PROCEDURE INFORMATION: Exam: CTA Abdomen and Pelvis With Contrast Exam date and time: 09/02/2024 19:32 Age: 88 years old Clinical indication: Other: ? Aaa rupture TECHNIQUE: Imaging protocol: Computed tomographic angiography of the abdomen and pelvis with contrast. Exam focused on the arteries. 3D rendering (Not supervised by radiologist): MIP and/or 3D reconstructed images were created by the technologist. Contrast material: OMNIPAQUE 350; Contrast volume: 100 ml; Contrast route: INTRAVENOUS (IV); COMPARISON: 1. CT THORAX ABD/PEL CTA 01/28/2024 10:[address] ABDOMEN PELVIS WO 09/02/2024 17:49 FINDINGS: Lungs: The lungs appear hyperinflated. Heart: Cardiomegaly and probable mild interstitial edema in the lung bases. Aorta: Aortic bi-iliac stent graft is in satisfactory position; increased size of a now 12 x 11 cm excluded infrarenal aneurysm extending into the bilateral common iliac space; the anterior excluded aneurysm sac appears mildly thick walled and enhancing. Chronic upper stent graft endoleak has greatly worsened. Lobulated aneurysm at this location, increased in complexity and volume since prior, maximal dilation of the aorta at now 65 x 56 mm at this location; no johan rupture. Celiac trunk and mesenteric arteries: Atherosclerosis of celiac trunk and SMA with likely [id number] stenosis above locations. Distal branches are patent. Renal arteries: Chronic appearing severe stenosis of right renal artery ostium, at the level of the stent graft; chronic appearing moderate to severe left renal artery ostial stenosis at the level of the stent graft. Iliac arteries: Chronic appearing mild multifocal fusiform dilation of bilateral iliac arteries beyond the stent graft very similar to prior. No occlusion Liver: No mass. Gallbladder and biliary ducts: No calcified stones. No ductal dilation. Pancreas: No mass. No ductal dilation. Spleen: No splenomegaly. Adrenal glands: No mass. Kidneys and ureters: Chronic renal cortical atrophy. Benign-appearing renal cyst(s) and/or probable cyst(s). No renal masses or hydronephrosis bilaterally. Stomach and bowel: Sigmoid anastomosis, satisfactory appearance. Colonic diverticulosis without diverticulitis. No focal pathology in the small bowel. Appendix: No evidence of appendicitis. Intraperitoneal space: Trace edema in the paracolic gutters. Lymph nodes: No enlarged lymph nodes. Urinary bladder: Mild probable chronic outlet obstructive changes of the urinary bladder. Reproductive: Moderate prostatic enlargement. Presumed vasectomy clips. Bones/joints: Chronic bony changes with no acute fracture. Soft tissues: Umbilical hernia repair suspected. Likely nonacute appearing disease of the left ileus psoas, which is the asymmetrically enlarged heterogeneous compared to the right, in contiguity with portions of the excluded infrarenal aneurysm sac; this area measures about 7 x 10 x 7 cm and appears moderately thick walled and peripherally enhancing; there is minor edema surrounding the left ileus psoas musculature. IMPRESSION: 1. Aortic bi-iliac stent graft is in satisfactory position; increased size of a now 12 x 11 cm excluded/chronically thrombosed infrarenal aneurysm extending into the bilateral common iliac space; the anterior excluded aneurysm sac appears mildly thick walled and enhancing. Inflammation or infection of the anterior excluded sac is possible. 2. Chronic upper stent graft endoleak has greatly worsened. Lobulated aneurysm at this location, increased in complexity and volume since prior, maximal dilation of the aorta at now 65 x 56 mm at this location; no johan rupture. Mycotic aneurysm should be considered given additional aortic findings as below. 3. Likely nonacute appearing disease of the left ileus psoas; 7 x 10 x 7 cm heterogeneous lesion at this location contiguous with the infrarenal excluded aneurysm sac. Abscess must be considered. 4. Additional findings as described. Dictated and Authenticated by: Nancy Cruz MD. Orderin Aubrey Chau MD
--- NOTE | 2024-09-02 23:33 | HPE_ITS ---
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 He is not hemodynamically unstable and more comfortable at this time after his acute onset of pain at home. He is receiving IV morphine but does have oral morphine concentrate and oxycodone at home for pain management. He is seeing palliative care but is not on hospice. He does have a caregiver at home who could take care of him at end-of-life. He is deferring any antibiotics at this time understand the risk of nontreatment and is wanting comfort measures when discussing this case in the ED. When I saw the patient he was having some questions about treatment options. Palliative care will be seeing the patient to discuss further options. If this is a partial rupture of his AAA it appears to be stable and causing changes in the left psoas muscle though there is concern for abscess. He is not a surgical candidate for open procedure according to [facility]. He is a DNR/DNI. (2) Abscess, psoas: Start date: 09/02/24 Status: Suspected Assessment and plan: Patient has extravasation of a ruptured aneurysm into the left psoas muscle or abscess with abscess being more likely according to [facility] consultation. He is not wanting antibiotics at this time and is being kept comfortable with IV morphine. Patient care was discussed with treatment options. (3) Abdominal aortic aneurysm: Status: Chronic Assessment and plan: Status post endovascular stenting of the lower aorta into the iliacs and chronic leakage with aneurysm expanding at this time. There is a possibility of infection and patient is deferring intervention or antibiotics at this time. The patient does have some chronic pain with this process and is appropriately being prescribed morphine concentrate and oxycodone at home for acute and breakthrough severe pain. This is being given by the palliative care team and not on the VPMS monitoring system. As he approaches end-of-life liberalization of pain management and anxiety treatment would be appropriate. The patient does not appear to be at risk for medication abuse. He is appropriately supervised at home. (4) HTN (hypertension): Status: Chronic Assessment and plan: Continue outpatient medical therapy adjusting as needed. (5) CAD (coronary artery disease): Status: Chronic Assessment and plan: Not acutely exacerbated with continued monitoring while in the hospital. (6) Atrial fibrillation: Status: Chronic Assessment and plan: In sinus rhythm with bradycardia presently with low-dose Eliquis chronically being continued for now. Risk-benefit need to be reviewed with the patient possibly having progression of his aneurysm. There is no evidence of acute blood loss. He is on low-dose metoprolol which will be split dosed while hospitalized. No monitoring coordinator with patient being DNR/DNI and approaching comfort measures only. (7) Ischemic cardiomyopathy: Status: Chronic Assessment and plan: Not acutely exacerbated with continuation of outpatient medications including beta-juma and nitroglycerin as needed. (8) Chronic kidney disease, stage 4 (severe): Status: Chronic Assessment and plan: This appears stable with monitoring while hospitalized. (9) BPH (benign prostatic hyperplasia): Status: Chronic Assessment and plan: Continue tamsulosin. (10) Gout due to renal impairment, right hand: Status: Chronic Assessment and plan: Continue allopurinol. (11) Type 2 diabetes mellitus: Status: Chronic Assessment and plan: Glucometer measurements before meals and at bedtime while hospitalized with moderate sliding scale insulin coverage. Hold outpatient medical therapy for now. History of Present Illness History of Present Illness Chief Complaint: Acute onset left abdominal and flank pain just prior to presentation to ED. Narrative: This is an 88-year-old male patient who has known AAA status post stenting now with acute onset of pain which he described as right back pain to the ED provider but more left abdominal and back radiating into his groin when I interviewed him. His pain was severe just prior to presentation and now he is fairly comfortable. He has received morphine. CT of the abdomen did reveal progression of his infrarenal aneurysm with possible extension and hemorrhage into the psoas muscle on the left versus psoas abscess. The patient has not had fever, elevated WBC or hypotension/tachycardia which may indicate infection or large volume of blood loss. His pain is also improved. He may have had a progression of his aneurysm acutely this appears to be stabilizing. He is somewhat frustrated that he is not able to have surgery without high risk and was resolved and he wanted comfort measures when he was in the ED but now is having questions. He should really discuss his situation with palliative care. He does have a full-time caregiver at his home. He recently has seen by [facility] and did receive medication from them which is not on the VPMS possibly being prescribed through hospice. He has received oxycodone which appears to be for acute pain and tramadol in the follow-up 2023 with nothing on the VPMS since that time. He presently is hemodynamically stable and not having significant pain. He will continue IV morphine as needed if he has recurring pain with conversion to oral therapy having morphine concentrate at home with oxycodone at home. If he becomes comfort measures only and is placed on hospice, he will be prescribed appropriate end-of-life pain management and anxiety management. As stated, he does have a contract lead who could take care of him at home for end-of-life. He does have stressors with finances though he does home his home. He is a DNR/DNI. Review of Systems Narrative: 13 point review of systems otherwise unrevealing or stable. PFSH All Active Problems (Updated 09/03/24 @ 14:37 by Sonia Serrano NP) Goals of care, counseling/discussion (Acute) Palliative care encounter (Acute) 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, right hand (Chronic) Rib fracture (Acute) BPH (benign prostatic hyperplasia) (Chronic) Abdominal aortic aneurysm (Chronic) Aortic aneurysm, thoracic (Acute) Closed rib fracture (Acute) Unsteady gait (Acute) Impaired instrumental activities of daily living (Acute) Left ankle sprain (Acute 05/03/24) Weight loss (Acute) Deficit in activities of daily living (ADL) (Acute) Hard of hearing (Acute) Financial difficulties (Acute) Palliative care patient (Acute) ACP (advance care planning) (Acute) Fracture of proximal end of left humerus (Acute ~02/06/24) Gout of left knee (Chronic) Trigger thumb of left hand (Acute) Acute kidney injury superimposed on CKD (Acute) Severe sepsis (Acute) Chronic kidney disease, stage 4 (severe) (Chronic) HTN (hypertension) (Chronic) CAD (coronary artery disease) (Chronic) Dermatitis (Acute) Atrial fibrillation (Chronic) Acute non-ST elevation myocardial infarction (NSTEMI) (Acute) Wound dehiscence, surgical (Acute) Type 2 diabetes mellitus (Chronic) Fatty liver (Acute) Mass of salivary gland (Acute) Ischemic cardiomyopathy (Chronic) Skin lesion of scalp (Acute) Anemia (Chronic) Hearing impairment (Acute) Medical History Chest pain Chronic kidney disease, stage 3 HLD (hyperlipidemia) Former smoker Balanitis Atrial flutter Edema [place]'s disease Phimosis (10/17/15) Erectile dysfunction AAA (abdominal aortic aneurysm) Renal insufficiency 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) Diverticulitis of large intestine with abscess Hypercholesterolemia Diabetes mellitus Myocardial infarct Phimosis Surgical History Status post colostomy takedown (~03/01/20) S/P left hemicolectomy (~07/19/18) H/O phimosis s/p repair History of heart artery stent S/P hernia repair History of endovascular stent graft for abdominal aortic aneurysm (AAA) Social History Smoking/Tobacco Use Status: Former Tobacco Use Quit Date: 01/03/17 Tobacco: How many years used: 60 Smoking risk assessment performed?: Yes Alcohol Intake: former Drug use: Never Substance use type: does not use Housing: house Do you feel safe at home: Yes Do you feel safe in your relationship?: Yes Additional Social history: at side Meds Allergies and Home Medications Allergies Allergy/AdvReac Type Severity Reaction Status Date / Time adhesive Allergy Severe significant Verified 09/02/24 16:03 skin reaction, swelling, erythema, discomfort neomycin Allergy Unknown Verified 09/02/24 16:03 Home Medications ?Medication ?Instructions ?Recorded ?Confirmed ?Type atorvastatin 40 mg tablet (Lipitor) 40 mg PO QPM 09/20/17 09/02/24 History magnesium oxide 400 mg PO BID 01/14/20 09/02/24 History nitroglycerin 0.4 mg sublingual 0.4 mg sublingual Q5 MIN PRN X3 PRN 01/14/20 09/02/24 History tablet (Nitrostat) acetaminophen 500 mg tablet 1,000 mg PO Q8H PRN 02/29/20 09/02/24 History (Acetaminophen Extra Strength) cyanocobalamin (vitamin B-12) 1,000 mcg PO DAILY 03/01/20 09/02/24 History 1,000 mcg tablet tamsulosin 0.4 mg capsule 0.4 mg PO DAILY 11/27/20 09/02/24 History apixaban 2.5 mg tablet 2.5 mg PO BID 05/31/21 09/02/24 History alogliptin 6.25 mg tablet 6.25 mg PO DAILY 10/07/23 09/02/24 History calcitriol 0.25 mcg capsule 0.25 mcg PO DAILY 10/07/23 09/02/24 History cholecalciferol (vitamin D3) 25 25 mcg PO DAILY 10/07/23 09/02/24 History mcg (1,000 unit) capsule metoprolol succinate 50 mg 25 mg (1/2 x 50 mg) PO DAILY #0 10/07/23 09/02/24 Rx tablet,extended release 24 hr tabs allopurinol 100 mg tablet 100 mg PO .every other day 01/21/24 09/02/24 History insulin glargine 100 unit/mL 5 unit subcut QPM 01/21/24 09/02/24 History subcutaneous solution amlodipine 2.5 mg tablet 5 mg PO DAILY 03/16/24 09/02/24 History insulin aspart U-100 100 unit/mL 3 unit subcut TID 03/16/24 09/02/24 History (3 mL) subcutaneous pen (Novolog FlexPen U-100 Insulin aspart) L. acidophilus,casei,rhamnosus 50 1 cap PO DAILY #10 caps 08/24/24 09/02/24 Rx billion cell capsule,delayed release (Bio-K plus) morphine concentrate 100 mg/5 mL 40 mg (2 mL) PO Q1-4H PRN pain #15 08/30/24 09/02/24 Rx (20 mg/mL) oral solution mL oxycodone-acetaminophen 2.5 mg-325 1 tab PO Q6H PRN pain #14 tabs 08/30/24 09/02/24 Rx mg tablet lorazepam 1 mg tablet 1 mg PO QID PRN anxiety, nausea, 09/03/24 Rx or dyspnea #6 tabs morphine concentrate 100 mg/5 mL See Rx Instructions PO Q1H PRN 09/03/24 Rx (20 mg/mL) oral solution pain or dyspnea #30 mL Exam Narrative Exam Narrative: General: Patient appears appropriate for age, alert and oriented x 3 in no acute distress lying in bed at 45 degree angle. HEENT: Normocephalic, eyes with pupils equal and reactive to light symmetrically. Sclera anicteric. Oropharynx with moist mucosa and fair dentition with dentures above and below. Neck: Supple without JVD. Back: Stooped posture without CVA tenderness. Lungs: Clear to auscultation without focalizing rales or rhonchi. Good aeration. No expiratory wheeze. Heart: Regular rate and rhythm with no murmurs or gallops appreciated. Abdomen: Protuberant but soft to palpation, bowel sounds positive all quadrants. Guarding with deep palpation but no obvious pulsatile mass with exam limited. No rebound or severe tenderness. No palpable hepatosplenomegaly. Genitalia/rectal: Exam deferred. Extremities: Without clubbing, cyanosis or pitting edema.. Capillary refill. Skin: Normal color, warm and dry. Neuro: Cranial nerves II through XII grossly intact, no focalizing motor deficits. No tremor. Psych: Depressed mood with flattened affect. No abnormal thought processes. Remote and recent memory grossly intact. Results Imaging Imaging Studies: EXAM: CT ABDOMEN PELVIS WO CLINICAL HISTORY: right flank pain, hx AAA repair. TECHNIQUE: Imaging Protocol: Axial computed tomography images with coronal and sagittal reformatted images were created and reviewed. Oral: no COMPARISON: CT CT THORAX ABD/PEL CTA from 01/28/[address] ABDOMEN PELVIS WO from 05/24/2024 FINDINGS: Lung Bases: No acute findings. Liver: Normal density. No suspicious mass. Gallbladder and biliary tract: No radiodense calculus or biliary dilation. Pancreas: Normal density. No abnormal calcifications or inflammatory process. Spleen: Normal. Kidneys: Normal size, contour and axis. No radiodense stones. No obstructive uropathy. No suspicious masses seen. Adrenal glands: No masses seen. Lymph nodes: Within normal limits. Vasculature: An aorto bi-iliac stent is again noted extending from above the level of the renal arteries through the common iliac arteries. The saccular infrarenal aneurysm the size appears stable from the prior exam, 10 cm in diameter. An area of anterior outpouching which appears unchanged. The focal aneurysm at the level of the renal arteries appears stable. Soft tissues: There is enlargement of the left psoas muscle with some low- density material which appears contiguous with the aneurysm. The area of low density measures approximately 8.5 x 5.0 by 4.5 cm. This could represent psoas hematoma related to rupture of the aneurysm versus abscess Bladder: No wall thickening. No mass or calculi. Bowel: No obstruction or bowel wall thickening. Peritoneal cavity: No ascites. No focal collection. No mesenteric inflammatory response. Reproductive organs: Prostate is enlarged. Bones: Unremarkable for age. IMPRESSION: Stable size of 10 centimeter infrarenal abdominal aortic aneurysm with aorto bi- iliac stent in place. Enlargement of left psoas muscle with area of low density. This appears contiguous with the aneurysm and could represent rupture of the aneurysm into the psoas muscle versus psoas abscess. Exam: CTA Abdomen and Pelvis With Contrast Exam date and time: 09/02/2024 19:32 Age: 88 years old Clinical indication: Other: ? AAA rupture COMPARISON: 1. CT THORAX ABD/PEL CTA 01/28/2024 10:[address] ABDOMEN PELVIS WO 09/02/2024 17:49 FINDINGS: Lungs: The lungs appear hyperinflated. Heart: Cardiomegaly and probable mild interstitial edema in the lung bases. Aorta: Aortic bi-iliac stent graft is in satisfactory position; increased size of a now 12 x 11 cm excluded infrarenal aneurysm extending into the bilateral common iliac space; the anterior excluded aneurysm sac appears mildly thick walled and enhancing. Chronic upper stent graft endoleak has greatly worsened. Lobulated aneurysm at this location, increased in complexity and volume since prior, maximal dilation of the aorta at now 65 x 56 mm at this location; no johan rupture. Celiac trunk and mesenteric arteries: Atherosclerosis of celiac trunk and SMA with likely [id number] stenosis above locations. Distal branches are patent. Renal arteries: Chronic appearing severe stenosis of right renal artery ostium, at the level of the stent graft; chronic appearing moderate to severe left renal artery ostial stenosis at the level of the stent graft. Iliac arteries: Chronic appearing mild multifocal fusiform dilation of bilateral iliac arteries beyond the stent graft very similar to prior. No occlusion Liver: No mass. Gallbladder and biliary ducts: No calcified stones. No ductal dilation. Pancreas: No mass. No ductal dilation. Spleen: No splenomegaly. Adrenal glands: No mass. Kidneys and ureters: Chronic renal cortical atrophy. Benign-appearing renal cyst(s) and/or probable cyst(s). No renal masses or hydronephrosis bilaterally. Stomach and bowel: Sigmoid anastomosis, satisfactory appearance. Colonic diverticulosis without diverticulitis. No focal pathology in the small bowel. Appendix: No evidence of appendicitis. Intraperitoneal space: Trace edema in the paracolic gutters. Lymph nodes: No enlarged lymph nodes. Urinary bladder: Mild probable chronic outlet obstructive changes of the urinary bladder. Reproductive: Moderate prostatic enlargement. Presumed vasectomy clips. Bones/joints: Chronic bony changes with no acute fracture. Soft tissues: Umbilical hernia repair suspected. Likely nonacute appearing disease of the left ileus psoas, which is the asymmetrically enlarged heterogeneous compared to the right, in contiguity with portions of the excluded infrarenal aneurysm sac; this area measures about 7 x 10 x 7 cm and appears moderately thick walled and peripherally enhancing; there is minor edema surrounding the left ileus psoas musculature. IMPRESSION: 1. Aortic bi-iliac stent graft is in satisfactory position; increased size of a now 12 x 11 cm excluded/chronically thrombosed infrarenal aneurysm extending into the bilateral common iliac space; the anterior excluded aneurysm sac appears mildly thick walled and enhancing. Inflammation or infection of the anterior excluded sac is possible. 2. Chronic upper stent graft endoleak has greatly worsened. Lobulated aneurysm at this location, increased in complexity and volume since prior, maximal dilation of the aorta at now 65 x 56 mm at this location; no johan rupture. Mycotic aneurysm should be considered given additional aortic findings as below. 3. Likely nonacute appearing disease of the left ileus psoas; 7 x 10 x 7 cm heterogeneous lesion at this location contiguous with the infrarenal excluded aneurysm sac. Abscess must be considered. 4. Additional findings as described. Labs 09/03/24 06:15 09/03/24 06:15 Labs: Laboratory Results - last 24 hr 09/02/24 09/02/24 09/02/24 16:04 17:04 17:04 WBC 13.10 H RBC 4.20 L Hgb 12.2 L Hct 38.1 L MCV 91 MCH 29.0 MCHC 32.0 RDW 13.2 Plt Count 297 MPV 9.8 Immature Gran % 0.6 Neutrophils % 78.7 Lymphocytes % 13.1 Monocytes % 6.2 Eosinophils % 1.1 Basophils % 0.3 Nucleated RBC % 0.0 Absolute Neutrophils 10.31 H Absolute Lymphocytes 1.72 Absolute Monocytes 0.81 H Absolute Eosinophils 0.14 Absolute Basophils 0.04 PT 10.9 INR 1.1 APTT 25.9 Sodium 142 Potassium 4.3 Chloride 106 Carbon Dioxide 27.4 Anion Gap 8.6 BUN 22 H Creatinine 2.0 H Est GFR (CKD-EPI 2020) 31.71 Glucose 135 H Calcium 9.2 Magnesium 1.7 L Cancelled Total Bilirubin 0.5 AST 32 ALT 33 Alkaline Phosphatase 157 H Total Protein 6.7 Albumin 2.8 L Lipase 23 Urine Color Yellow Urine Clarity Clear Urine pH 7.0 Ur Specific [place] 1.020 Urine Protein 30 H Urine Ketones Negative Urine Blood Trace-intact H Urine Nitrite Negative Urine Bilirubin Negative Urine Urobilinogen 0.2 Ur Leukocyte Esterase Negative Urine RBC 0-2 Urine WBC Negative Ur Epithelial Cells Rare Urine Crystals Rare Amorphous Urine Bacteria Negative Urine Casts 0-2 Hyaline Urine Mucus Trace Ur Culture Indicated? No Urine Glucose Negative ABO/Rh O Positive Antibody Screen NEGATIVE Last Vital Signs Temp 36.3 C L 09/02/24 16:04 Pulse 54 L 09/02/24 18:50 Resp 18 09/02/24 17:34 BP 173/75 H 09/02/24 18:46 Pulse Ox 96 09/02/24 18:50 Time Spent Time spent with Patient: >75 minutes Time was spent: preparing to see the patient(eg.review tests), obtaining and/or reviewing separately otained hiistory, ordering medications,tests, procedures, referring, communicating with other health healthcare associate, indepentently interpreting results, counseling the patient and care coordination
[2024-09-02] MEDS: Normal Saline Flush 10 ML SYR IVP (23:38)
--- NOTE | 2024-09-03 00:47 | W.PC.ACHO ---
Registration Status: Primary Language: Preferred Language: ED Information & Data Chief Complaint FlankPain 09/02/24 16:25 Triage Note symptoms started this am, 09/02/24 16:01 throbbing pain right flank. no other s/s. was just at [facility] yesterday for kidney apt. no results posted to portal yet Medical / Surgical History (Last Reviewed 09/02/24 @ 23:33 by Bello Lassiter) Chest pain Chronic kidney disease, stage 3 HLD (hyperlipidemia) Former smoker Balanitis Atrial flutter Edema [facility] disease Phimosis (10/17/15) Erectile dysfunction AAA (abdominal aortic aneurysm) Renal insufficiency 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) Diverticulitis of large intestine with abscess Hypercholesterolemia Diabetes mellitus Myocardial infarct Phimosis (Last Reviewed 09/02/24 @ 23:33 by Bello Lassiter) Status post colostomy takedown (~03/01/20) S/P left hemicolectomy (~07/19/18) H/O phimosis History of heart artery stent S/P hernia repair History of endovascular stent graft for abdominal aortic aneurysm (AAA) Most Recent Vital Signs Temperature 36.3 C L 09/02/24 16:04 Pulse 59 L 09/02/24 23:32 Respiratory Rate 18 09/02/24 17:34 Respiratory Effort Normal, Non-Labored 09/02/24 17:34 Respiratory Depth Normal 09/02/24 17:34 Respiratory Pattern Normal 09/02/24 17:34 Blood Pressure 161/67 H 09/02/24 23:31 Blood Pressure Mean 100 09/02/24 23:31 Blood Pressure Position Supine 09/02/24 17:34 Pulse Oximetry 94 09/02/24 23:32 Oxygen Delivery Method Room Air 09/02/24 17:34 Oxygen Flow Rate 0 09/02/24 17:34 Pain Level 8 09/02/24 23:37 Allergies adhesive Allergy (Severe, Verified 09/02/24 16:03) significant skin reaction, swelling, erythema, discomfort Tegaderm, mepilex border dressing neomycin Allergy (Verified 09/02/24 16:03) Unknown Active Medications Generic Name Dose Route Start Last Admin Trade Name Freq PRN Reason Stop Dose Admin Iohexol 100 ml 09/02/24 19:45 09/02/24 19:34 Omnipaque 350 Mg/Ml 100 Ml Btl IJ 10/02/24 23:59 100 ml DIRECTED SANTY Administration Sodium Chloride 0 ml 09/02/24 20:00 09/02/24 23:38 Normal Saline Flush 10 Ml Syr IVP 10 ml BID SANTY Administration Sodium Chloride 50 ml 09/02/24 19:45 09/02/24 19:33 Normal Saline - Diluent 50 Ml Vial IJ 50 ml .FOR DI USE SANTY Administration IV IV Catheter Type [Right Saline Lock Forearm] IV Catheter Gauge [Right 20 Forearm] Diagnostics 09/03/24 09/02/24 09/02/24 Range/Units 00:20 17:04 17:04 WBC 13.10 H (4.4-10.8) 10^3/uL RBC 4.20 L (4.36-5.78) 10^6/uL Hgb 12.2 L (13.5-17.5) g/dL Hct 38.1 L (40.0-50.0) % MCV 91 (80-95) fL MCH 29.0 (27.0-33.0) pg MCHC 32.0 (32.0-36.0) % RDW 13.2 (11.8-14.1) % Plt Count 297 (130-400) 10^3/uL MPV 9.8 (8.0-11.0) fL Immature Gran % 0.6 % Neutrophils % 78.7 % Lymphocytes % 13.1 % Monocytes % 6.2 % Eosinophils % 1.1 % Basophils % 0.3 % Nucleated RBC % 0.0 (0.0-0.3) % Absolute Neutrophils 10.31 H (1.2-6.7) 10^3/uL Absolute Lymphocytes 1.72 (1.2-3.4) 10^3/uL Absolute Monocytes 0.81 H (0.1-0.8) 10^3/uL Absolute Eosinophils 0.14 (0.0-0.7) 10^3/uL Absolute Basophils 0.04 (0.0-0.2) 10^3/uL PT 10.9 (9.1-11.1) sec INR 1.1 (0.9-1.1) APTT 25.9 (20.6-30.2) sec Sodium 142 (136-145) mmol/L Potassium 4.3 (3.5-5.1) mmol/L Chloride 106 (98-107) mmol/L Carbon Dioxide 27.4 (21.0-32.0) mmol/L Anion Gap 8.6 (3-11) mmol/L BUN 22 H (7-18) mg/dL Creatinine 2.0 H (0.70-1.30) mg/dL Est GFR (CKD-EPI 2020) 31.71 (mL/min/1.73m2) Glucose 135 H (74-106) mg/dL Calcium 9.2 (8.5-10.1) mg/dL Magnesium Cancelled 1.7 L (1.8-2.4) mg/dL Total Bilirubin 0.5 (0.2-1.0) mg/dL AST 32 (15-37) U/L ALT 33 (16-63) U/L Alkaline Phosphatase 157 H (46-116) U/L Total Protein 6.7 (6.4-8.2) g/dL Albumin 2.8 L (3.4-5.0) g/dL Lipase 23 (<78) U/L Urine Color (Yellow) Urine Clarity (Clear) Urine pH (5-8) Ur Specific [place] (1.005-1.025) Urine Protein (Neg-Trace) mg/dL Urine Ketones (Negative) mg/dL Urine Blood (Negative) Urine Nitrite (Negative) Urine Bilirubin (Negative) Urine Urobilinogen (Up to 0.2) mg/dL Ur Leukocyte Esterase (Negative) Urine RBC (0-2) HPF Urine WBC (0-5) HPF Ur Epithelial Cells (Negative) HPF Urine Crystals (Negative) HPF Urine Bacteria (Negative) HPF Urine Casts (Negative) LPF Urine Mucus (Negative) Ur Culture Indicated? Urine Glucose (Negative) mg/dL COVID-19 Source Pending SARS-CoV-2 (PCR) Pending Influenza Type A (PCR) Pending Influenza Type B (PCR) Pending RSV (PCR) Pending ABO/Rh O Positive Antibody Screen NEGATIVE 09/02/24 Range/Units 16:04 WBC (4.4-10.8) 10^3/uL RBC (4.36-5.78) 10^6/uL Hgb (13.5-17.5) g/dL Hct (40.0-50.0) % MCV (80-95) fL MCH (27.0-33.0) pg MCHC (32.0-36.0) % RDW (11.8-14.1) % Plt Count (130-400) 10^3/uL MPV (8.0-11.0) fL Immature Gran % % Neutrophils % % Lymphocytes % % Monocytes % % Eosinophils % % Basophils % % Nucleated RBC % (0.0-0.3) % Absolute Neutrophils (1.2-6.7) 10^3/uL Absolute Lymphocytes (1.2-3.4) 10^3/uL Absolute Monocytes (0.1-0.8) 10^3/uL Absolute Eosinophils (0.0-0.7) 10^3/uL Absolute Basophils (0.0-0.2) 10^3/uL PT (9.1-11.1) sec INR (0.9-1.1) APTT (20.6-30.2) sec Sodium (136-145) mmol/L Potassium (3.5-5.1) mmol/L Chloride (98-107) mmol/L Carbon Dioxide (21.0-32.0) mmol/L Anion Gap (3-11) mmol/L BUN (7-18) mg/dL Creatinine (0.70-1.30) mg/dL Est GFR (CKD-EPI 2020) (mL/min/1.73m2) Glucose (74-106) mg/dL Calcium (8.5-10.1) mg/dL Magnesium (1.8-2.4) mg/dL Total Bilirubin (0.2-1.0) mg/dL AST (15-37) U/L ALT (16-63) U/L Alkaline Phosphatase (46-116) U/L Total Protein (6.4-8.2) g/dL Albumin (3.4-5.0) g/dL Lipase (<78) U/L Urine Color Yellow (Yellow) Urine Clarity Clear (Clear) Urine pH 7.0 (5-8) Ur Specific [place] 1.020 (1.005-1.025) Urine Protein 30 H (Neg-Trace) mg/dL Urine Ketones Negative (Negative) mg/dL Urine Blood Trace-intact H (Negative) Urine Nitrite Negative (Negative) Urine Bilirubin Negative (Negative) Urine Urobilinogen 0.2 (Up to 0.2) mg/dL Ur Leukocyte Esterase Negative (Negative) Urine RBC 0-2 (0-2) HPF Urine WBC Negative (0-5) HPF Ur Epithelial Cells Rare (Negative) HPF Urine Crystals Rare Amorphous (Negative) HPF Urine Bacteria Negative (Negative) HPF Urine Casts 0-2 Hyaline (Negative) LPF Urine Mucus Trace (Negative) Ur Culture Indicated? No Urine Glucose Negative (Negative) mg/dL COVID-19 Source SARS-CoV-2 (PCR) Influenza Type A (PCR) Influenza Type B (PCR) RSV (PCR) ABO/Rh Antibody Screen 09/02/24 20:23 Blood Culture - Pending Blood 09/02/24 20:20 Blood Culture - Pending Blood Intake and Output - 24 Hour Total 09/02/24 15:58 thru 09/02/24 16:01 Weight 77.111 kg Falls Risk Assessment History of Falls No History 09/02/24 17:37 Contributing Factors No Factors 09/02/24 17:37 Ambulatory Aids Uses ambulatory device 09/02/24 17:37 Tubes/Lines None 09/02/24 17:37 Gait Evaluation W/no contributing factors 09/02/24 17:37 Cognition No cognitive impairment 09/02/24 17:37 Fall Total Score 09/02/24 17:37 Level of Risk Moderate Risk 09/02/24 17:37 Problems (Last Reviewed 09/02/24 @ 23:33 by Bello Lassiter) Abscess, psoas (Acute) 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 Information / Comments: Pt coming in for back pain, hx of multiple aneurisms, they have gotten larger recently. currently one is leaking with an abscess. Pt has declined any intervention and would like to go comfort measures. He is an established palliative care pt and will be meeting with them tomorrow to discuss his prognosis and future steps for comfort. Report received from: Norma Obrien RN
[2024-09-03 00:58] VITALS: BP 95/71; PULSE 58; RESP 18; TEMP 36; O2SAT 96
[2024-09-03 01:00] LABS: COVID-19 PCR Negative (Negative); Influenza A PCR Negative (Negative); Influenza B PCR Negative (Negative); RSV PCR Negative (Negative); Source Nasopharynx
[2024-09-03 01:16] VITALS: BP 95/71; PULSE 58; RESP 18; TEMP 36; O2SAT 96
[2024-09-03] MEDS: MORPHine 4 MG/ML SYR IVP (02:08)
[2024-09-03] MEDS: Normal Saline Flush 10 ML SYR IVP ×3 (02:08→19:40)
[2024-09-03 02:49] VITALS: BP 104/61; PULSE 56; RESP 19; TEMP 36.1; O2SAT 95
[2024-09-03 07:06] LABS: HCT 36.2 % (40.0-50.0); HGB 11.4 g/dL (13.5-17.5); MCH 28.6 pg (27.0-33.0); MCHC 31.5 % (32.0-36.0); MCV 91 fL (80-95); MPV 9.8 fL (8.0-11.0); Platelet Count 297 10^3/uL (130-400); RBC 3.98 10^6/uL (4.36-5.78); RDW-SD 43.3 fL; WBC 11.14 10^3/uL (4.4-10.8)
[2024-09-03 07:49] VITALS: BP 109/65; PULSE 52; RESP 14; TEMP 36.5; O2SAT 97
[2024-09-03 07:58] LABS: ALT 29 U/L (16-63); AST 28 U/L (15-37); Albumin 2.5 g/dL (3.4-5.0); Alkaline Phosphatase 136 U/L (46-116); Anion Gap 8.1 mmol/L (3-11); BUN 19 mg/dL (7-18); Bilirubin, Total 0.5 mg/dL (0.2-1.0); CO2 27.9 mmol/L (21.0-32.0); CREATININE 2.1 mg/dL (0.70-1.30); Calcium 9.2 mg/dL (8.5-10.1); Chloride 105 mmol/L (98-107); Glucose 128 mg/dL (74-106); Magnesium 1.7 mg/dL (1.8-2.4); Potassium 3.7 mmol/L (3.5-5.1); Sodium 141 mmol/L (136-145); Total Protein 6.4 g/dL (6.4-8.2)
[2024-09-03] MEDS: Magnesium Oxide 400 MG TAB PO ×2 (08:51→19:40)
[2024-09-03] MEDS: Tamsulosin 0.4 MG CAPCR PO (08:51)
[2024-09-03] MEDS: Allopurinol 100 MG TAB PO (08:52)
[2024-09-03] MEDS: Lactobacillus Acidophilus CAP 1 CAP PO (08:52)
[2024-09-03] MEDS: Cholecalciferol (Vitamin D3) 1,000 UNIT TAB 1000 UNITS PO (08:52)
[2024-09-03] MEDS: Calcitriol 0.25 MCG CAP PO (08:52)
[2024-09-03] MEDS: amLODIPine 2.5 MG TAB 5 MG PO (08:53)
[2024-09-03] MEDS: Cyanocobalamin 500 MCG TAB 1000 MCG PO (08:53)
--- NOTE | 2024-09-03 09:40 | INITIAL_ITS ---
Date of service: 09/03/24 Time of Service: 09:41 Care Management Initial Assmt Initial Assessment Reason for Hospitalization: mycotic aneurysm and ? psoas muscle abscess Functional Status/Living Situation Patient Presentation: Ovidio presented to the ER yesterday evening with c/o right lower back pain. He has a known aortic aneurysm, the size has noted to increase and his graft leak has worsened. He has stated that he does not want intervention for this, and he is not a surgical candidate. Ovidio and Montse met with Palliative Care today. They have made the decision that Ovidio will go home on Hospice Care. It is not clear at this time if he will discharge today or tomorrow. Ovidio and Montse both feel comfortable with this decision. Montse is very pleased to know that she will have some extra support at home. Town of Residence: [facility] Resides with: Spouse (Montse De Anda) Significant Other/Family: Out of area (4 children, daughter in [place] that he speaks with, but she is the only child he is in contact with) Caregiver/Guardian: Montse Natural Supports: Montse is really Ovidio's only support Employment Status: Retired Instrumental Activities of Daily Living (ADLs): Requires support (Montse helps with most, is connected with [employer] and [employer] and [facility]) with Dishes/food prep, [employer], Groceries, Heat/Utilities, Laundry and Transportation Activities/Hobbies/SocialSupport: Ovidio still enjoys fishing and skiing, although he did not ski this past season. Medications Medication Management: No Issues/Barriers identified Physical Functioning/Mobility Assistive Device: Has a cane and a walker, but doesn't really use them. Attends outpatient PT - did not return after last admission Advance Directives Advance Directives: Do you have an Advance Directive: Y 09/02/24 15:59 AD On File at [facility]: Y 09/02/24 15:59 Date Asked AD Date Reviewed 09/03/24 09/03/24 00:12 COLST On File at [facility] Yes 09/03/24 00:12 COLST Date Scanned 08/30/24 09/03/24 00:12 Code Status Resuscitation Status DNR/DNI Insurance Coverage/Financial Issues [place]: [place] - [id number] notified of admission Medicare Financial Issues: Ovidio stated that he really can't afford any good foods, no treats, and is on a strict budget. He has the assistance of [employer], [employer], and [employer]. He also gets help from the [employer], and [employer] Care Team Visit Care Team Role Provider Type Maximino Lucero Primary Care Provider [facility] STAFF PHYSICIAN Isac Burgos MD Emergency Provider [facility] STAFF PHYSICIAN Bello Lassiter Admit Provider NON-[facility] STAFF PHYSICIAN Attending Provider Discharge Potential Discharge Needs: Consult (palliative) and PCP F/U Appt Anticipated Barriers to Discharge: None Identified Patient/Family Education Needs: Review discharge instructions, discuss Ask Me Three Transportation: Private vehicle Plan: Anticipate that Cesar will be discharged home on Hospice. His hospice admission will be the day after discharge. Ovidio will f/u with the hospice providers in his home. CM will continue to follow and update the plan as needed. Social Determinants of Health Screening Social Determinants of health last assessed in clinic: 09/03/24 Will the Patient Participate in the Screening?: Yes Do you worry about having a steady place to live?: no Problems where you live: other In the past 12 months, have you had to go without electric, gas, oil or water in your home?: yes 1. Within the past 12 months, we worried whether our food would run out before we got money to buy more.: Sometimes true 2. Within the past 12 months, the food we bought just didn't last and we didn't have money to get more.: Sometimes true Has lack of transportation kept you from medical appointments or from doing things needed for daily living?: no Has anyone in your life made you feel unsafe or unsupported?: no How hard is it for you to pay for the very basics like food, housing, medical care, and heating? Would you say it is:: Very hard Do you want help finding or keeping work or a job?: I do not need or want help If for any reason you need help with day-to-day activities such as bathing, preparing meals, shopping, managing finances, etc., do you get the help you need?: I get all the help I need How often do you feel lonely or isolated from those around you?: Rarely Do you speak a language other than Czech at home?: Yes Does the patient want assistance with any of the above?: Yes Comments: Pt and caregiver speak [place] on occasion Health Related Social Needs Health related social needs: inadequate housing (Z59.1), food insecurity (Z59.41), material hardship(utilities) (Z59.12), problems related to housing/economic circumstances (Z59.89), feeling lonely/isolated (Z60.8) and education (Z55.6) Health related social needs details: pt would like help with heating costs PFSH All Active Problems (Updated 09/02/24 @ 23:42 by Bello Lassiter) Abscess, psoas (Acute) 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, right hand (Acute) Rib fracture (Acute) BPH (benign prostatic hyperplasia) (Chronic) Abdominal aortic aneurysm (Chronic) Aortic aneurysm, thoracic (Acute) Closed rib fracture (Acute) Unsteady gait (Acute) Impaired instrumental activities of daily living (Acute) Left ankle sprain (Acute 05/03/24) Weight loss (Acute) Deficit in activities of daily living (ADL) (Acute) Hard of hearing (Acute) Financial difficulties (Acute) Palliative care patient (Acute) ACP (advance care planning) (Acute) Fracture of proximal end of left humerus (Acute ~02/06/24) Gout of left knee (Chronic) Trigger thumb of left hand (Acute) Acute kidney injury superimposed on CKD (Acute) Severe sepsis (Acute) Chronic kidney disease, stage 4 (severe) (Chronic) HTN (hypertension) (Chronic) CAD (coronary artery disease) (Chronic) Dermatitis (Acute) Atrial fibrillation (Chronic) Acute non-ST elevation myocardial infarction (NSTEMI) (Acute) Wound dehiscence, surgical (Acute) Type 2 diabetes mellitus (Chronic) Fatty liver (Acute) Mass of salivary gland (Acute) Ischemic cardiomyopathy (Chronic) Skin lesion of scalp (Acute) Anemia (Chronic) Hearing impairment (Acute) Medical History Chest pain Chronic kidney disease, stage 3 HLD (hyperlipidemia) Former smoker Balanitis Atrial flutter Edema [place]'s disease Phimosis (10/17/15) Erectile dysfunction AAA (abdominal aortic aneurysm) Renal insufficiency 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) Diverticulitis of large intestine with abscess Hypercholesterolemia Diabetes mellitus Myocardial infarct Phimosis Surgical History Status post colostomy takedown (~03/01/20) S/P left hemicolectomy (~07/19/18) H/O phimosis s/p repair History of heart artery stent S/P hernia repair History of endovascular stent graft for abdominal aortic aneurysm (AAA) Social History Smoking/Tobacco Use Status: Former Tobacco Use Quit Date: 01/03/17 Tobacco: How many years used: 60 Smoking risk assessment performed?: Yes Alcohol Intake: former Drug use: Never Substance use type: does not use Housing: house Do you feel safe at home: Yes Do you feel safe in your relationship?: Yes Additional Social history: at side Readmission Within the Past 30 Days Yes or No: Yes Date of First Admission Date of 1st Admission: 08/23/24 Date of this Admission Date of Admission: 09/02/24 This admission was: Through ED Office Visit Since 1st Admission Have you seen your PCP in the office since discharge?: Yes Date of PCP Appointment: 08/27/24 I. Interview patient and/or Family Difficulty reaching your doctor or getting an office appt?: No If the patient had a VNA ordered Did the patient have a VNA order?: No Ask the Care Team Members: What do you think caused the patient to be readmitted: Cesar's aortic aneurysm has increased in size and the graft leak has worsened. ED visits How many ED visits in the past 12 months: 15 Assessment for Readmission Summary of readmission circumstances, based upon interviews: It appears that Ovidio is near end of life Anticipated HH Services Anticipated HH Services at Discharge [facility] Needed, Hospice.
--- NOTE | 2024-09-03 10:43 | PCNE_ITS ---
Date of service: 09/03/24 Time of Service: 10:43 History of Present Illness Narrative: Cesar is an 88 year old with AA with repair and 10 centimeter infrarenal abdominal aortic aneurysm and enlargement of the left psoas muscle with some low-density material which appears contiguous with the aneurysm. The area of low density measures approximately 8.5 x 5.0 by 4.5 cm. This could represent psoas hematoma related to rupture of the aneurysm versus abscess. He is not a surgical candidate and declines intervention/abx. He presented to the ED yesterday with R flank pain. He was noted in the ED to have the above findings. He was seen for Palliative consult to discuss goals of care. He reports that his appetite is decreased. He was over 200# at one point. He is down >30# over the last year, over 10# in the last 2 months. He spends the day sitting in his recliner watching game shows. He dozes off intermittently throughout the day. He sleeps a lot during the day. He sleeps well at night. He goes to bed around midnight. He endorses SOB with activity. He has had a couple of falls in the last few months. He denies pain at present. He has received 8mg of MS IV over the last 24 hrs. Consider fentanyl patch. He is able to do his own personal care at this time. Discussed GOC. He wants to go home. Discussed hospice as an option. He wishes to in his home. He knows his aneurysm could rupture at any time. He and Montse feel comfortable with going home as long as he has liquid MS available. They would like hospice. He has previously established that he is a DNR/DNI. He has a COLST on file. He has kids but does not want to talk about it. He wants to be cremated, they would like some help with planning this. Advised that hospice ELEVATOR DISPATCHER can help with this. 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 There is a possibility of infection and patient is deferring intervention or antibiotics at this time. (4) HTN (hypertension): Status: Chronic (5) CAD (coronary artery disease): Status: Chronic (6) Atrial fibrillation: Status: Chronic (7) Ischemic cardiomyopathy: Status: Chronic (8) Chronic kidney disease, stage 4 (severe): Status: Chronic (9) BPH (benign prostatic hyperplasia): Status: Chronic (10) Gout due to renal impairment, right hand: Status: Acute (11) Type 2 diabetes mellitus: Status: Chronic (12) Palliative care encounter: Status: Acute Assessment and plan: Cesar is an 88 year old with AA with repair and 10 centimeter infrarenal abdominal aortic aneurysm and enlargement of the left psoas muscle with some low-density material which appears contiguous with the aneurysm. The area of low density measures approximately 8.5 x 5.0 by 4.5 cm. This could represent psoas hematoma related to rupture of the aneurysm versus abscess. He is not a surgical candidate and declines intervention/abx. He reports that his appetite is decreased. He has lost >30# over the last year, over 10# in the last 2 months. He spends the day sitting in his recliner watching game shows. He dozes off frequently throughout the day. He sleeps a lot during the day. He sleeps well at night. He endorses SOB with activity. He has had a couple of falls in the last few months. He denies pain at present. He has received 8mg of MS IV over the last 24 hrs. Consider fentanyl patch. He is able to do his own personal care at this time. Discussed GOC. He wants to go home. Discussed hospice as an option. He wishes to in his home. He knows his aneurysm could rupture at any time. He and Montse feel comfortable with going home as long as he has liquid MS available. They would like hospice. He has previously established that he is a DNR/DNI. He has a COLST on file. Refer to hospice. 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, right hand (Acute) Rib fracture (Acute) BPH (benign prostatic hyperplasia) (Chronic) Abdominal aortic aneurysm (Chronic) Aortic aneurysm, thoracic (Acute) Closed rib fracture (Acute) Unsteady gait (Acute) Impaired instrumental activities of daily living (Acute) Left ankle sprain (Acute 05/03/24) Weight loss (Acute) Deficit in activities of daily living (ADL) (Acute) Hard of hearing (Acute) Financial difficulties (Acute) Palliative care patient (Acute) ACP (advance care planning) (Acute) Fracture of proximal end of left humerus (Acute ~02/06/24) Gout of left knee (Chronic) Trigger thumb of left hand (Acute) Acute kidney injury superimposed on CKD (Acute) Severe sepsis (Acute) Chronic kidney disease, stage 4 (severe) (Chronic) HTN (hypertension) (Chronic) CAD (coronary artery disease) (Chronic) Dermatitis (Acute) Atrial fibrillation (Chronic) Acute non-ST elevation myocardial infarction (NSTEMI) (Acute) Wound dehiscence, surgical (Acute) Type 2 diabetes mellitus (Chronic) Fatty liver (Acute) Mass of salivary gland (Acute) Ischemic cardiomyopathy (Chronic) Skin lesion of scalp (Acute) Anemia (Chronic) Hearing impairment (Acute) Medical History Chest pain Chronic kidney disease, stage 3 HLD (hyperlipidemia) Former smoker Balanitis Atrial flutter Edema Cruz's disease Phimosis (10/17/15) Erectile dysfunction AAA (abdominal aortic aneurysm) Renal insufficiency 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) Diverticulitis of large intestine with abscess Hypercholesterolemia Diabetes mellitus Myocardial infarct Phimosis Surgical History Status post colostomy takedown (~03/01/20) S/P left hemicolectomy (~07/19/18) H/O phimosis s/p repair History of heart artery stent S/P hernia repair History of endovascular stent graft for abdominal aortic aneurysm (AAA) Social History Smoking/Tobacco Use Status: Former Tobacco Use Quit Date: 01/03/17 Tobacco: How many years used: 60 Smoking risk assessment performed?: Yes Alcohol Intake: former Drug use: Never Substance use type: does not use Housing: house Do you feel safe at home: Yes Do you feel safe in your relationship?: Yes Additional Social history: at side Exam Narrative Exam Narrative: General: very pleasant, elderly man, lying in bed with HOB elevated. He is awake and alert, appears fatigued. He engages in the visit and answers questions appropriately. HEENT: normocephalic, atraumatic, EOMI, mmm Neck: supple Respiratory: respirations appear even and unlabored at rest. Ext: moves all 4 extremities freely, + pitting edema to BLEs. Results Last Vital Signs Temp 36.5 C 09/03/24 07:49 Pulse 52 L 09/03/24 07:49 Resp 14 09/03/24 07:49 BP 109/65 09/03/24 07:49 Pulse Ox 97 09/03/24 07:49 Labs 09/03/24 06:15 09/03/24 06:15 Labs: Laboratory Results - last 24 hr 09/02/24 09/02/24 09/02/24 16:04 17:04 17:04 WBC 13.10 H RBC 4.20 L Hgb 12.2 L Hct 38.1 L MCV 91 MCH 29.0 MCHC 32.0 RDW 13.2 Plt Count 297 MPV 9.8 Immature Gran % 0.6 Neutrophils % 78.7 Lymphocytes % 13.1 Monocytes % 6.2 Eosinophils % 1.1 Basophils % 0.3 Nucleated RBC % 0.0 Absolute Neutrophils 10.31 H Absolute Lymphocytes 1.72 Absolute Monocytes 0.81 H Absolute Eosinophils 0.14 Absolute Basophils 0.04 PT 10.9 INR 1.1 APTT 25.9 Sodium 142 Potassium 4.3 Chloride 106 Carbon Dioxide 27.4 Anion Gap 8.6 BUN 22 H Creatinine 2.0 H Est GFR (CKD-EPI 2020) 31.71 Glucose 135 H Calcium 9.2 Magnesium 1.7 L Cancelled Total Bilirubin 0.5 AST 32 ALT 33 Alkaline Phosphatase 157 H Total Protein 6.7 Albumin 2.8 L Lipase 23 Urine Color Yellow Urine Clarity Clear Urine pH 7.0 Ur Specific [place] 1.020 Urine Protein 30 H Urine Ketones Negative Urine Blood Trace-intact H Urine Nitrite Negative Urine Bilirubin Negative Urine Urobilinogen 0.2 Ur Leukocyte Esterase Negative Urine RBC 0-2 Urine WBC Negative Ur Epithelial Cells Rare Urine Crystals Rare Amorphous Urine Bacteria Negative Urine Casts 0-2 Hyaline Urine Mucus Trace Ur Culture Indicated? No Urine Glucose Negative COVID-19 Source SARS-CoV-2 (PCR) Influenza Type A (PCR) Influenza Type B (PCR) RSV (PCR) ABO/Rh O Positive Antibody Screen NEGATIVE 09/03/24 09/03/24 00:20 06:15 WBC 11.14 H RBC 3.98 L Hgb 11.4 L Hct 36.2 L MCV 91 MCH 28.6 MCHC 31.5 L RDW 13.0 Plt Count 297 MPV 9.8 Immature Gran % Neutrophils % Lymphocytes % Monocytes % Eosinophils % Basophils % Nucleated RBC % Absolute Neutrophils Absolute Lymphocytes Absolute Monocytes Absolute Eosinophils Absolute Basophils PT INR APTT Sodium 141 Potassium 3.7 Chloride 105 Carbon Dioxide 27.9 Anion Gap 8.1 BUN 19 H Creatinine 2.1 H Est GFR (CKD-EPI 2020) 29.90 Glucose 128 H Calcium 9.2 Magnesium 1.7 L Total Bilirubin 0.5 AST 28 ALT 29 Alkaline Phosphatase 136 H Total Protein 6.4 Albumin 2.5 L Lipase Urine Color Urine Clarity Urine pH Ur Specific [place] Urine Protein Urine Ketones Urine Blood Urine Nitrite Urine Bilirubin Urine Urobilinogen Ur Leukocyte Esterase Urine RBC Urine WBC Ur Epithelial Cells Urine Crystals Urine Bacteria Urine Casts Urine Mucus Ur Culture Indicated? Urine Glucose COVID-19 Source Nasopharynx SARS-CoV-2 (PCR) Negative Influenza Type A (PCR) Negative Influenza Type B (PCR) Negative RSV (PCR) Negative ABO/Rh Antibody Screen Time Spent Time Spent with Patient Time Spent(min): 99
--- NOTE | 2024-09-03 11:34 | CHAPLAIN ---
Cesar was resting in bed when I visited. His longtime partner, Montse, was with him. Cesar told me that he was recently given a prognosis of living for two more weeks. He seemed matter of fact in his explanation. Montse said, they are hoping for longer than that. Cesar has cardiac issues that exacerbated. The dye required for treatment would cause problems for his kidneys which aren't functioning well and Cesar would be required to go on dialysis if the dye were used. 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 He has been palliative care patient for over a year and will meet today with Rose Marie Li from Palliative. Cesar shared some person history, talking about growing up in [facility], going in the [employer], living [place] for a while, going to [employer] when her returned home and eventually working at [employer] for 30 years after it first opened in [place]. He returned to [facility] to take care of his mom, and his served him with divorce papers while he was here. He stayed here in his family home. Cesar said he has four children who have all gone off, explaining that they live as far away as [place] and [place]. It sounds like he doesn't have contact with them as he said it's just me and her now, pointing to Montse. Cesar was raised in the [facility] [employer] and sang in the choir. He has not been to latter day in many years and was not interested in me now contacting the tick inspector at [facility] for him.
[2024-09-03] MEDS: Insulin Aspart 300 UNITS/3 ML PEN SC ×2 (11:58→17:21)
--- NOTE | 2024-09-03 14:34 | PGE_ITS ---
Date of Service Date of service: 09/03/24 Time of Service: 14:34 Assessment and Plan Assessment and plan (1) Abdominal aortic aneurysm: Status: Chronic Assessment and plan: Status post endovascular stenting of the lower aorta into the iliacs and chronic leakage with aneurysm expanding at this time. not a surgical candidate (2) Abscess, psoas: Status: Suspected Assessment and plan: declines further evaluation and antiboitics (3) Goals of care, counseling/discussion: Status: Acute Assessment and plan: palliative care consult placed. anticipate discharge to home with hospice as patient wishing for comfort care and no further evaluation discussed with DR Leon (4) HTN (hypertension): Status: Chronic (5) CAD (coronary artery disease): Status: Chronic (6) Atrial fibrillation: Status: Chronic (7) Ischemic cardiomyopathy: Status: Chronic (8) Chronic kidney disease, stage 4 (severe): Status: Chronic (9) BPH (benign prostatic hyperplasia): Status: Chronic (10) Type 2 diabetes mellitus: Status: Chronic Subjective Subjective Patient reports: no new complaints and afebrile Exam Narrative Exam Narrative: Frail elderly male of stated age no acute distress resting quietly on stretcher head is atraumatic eyes nonicteric noninjected neck full range of motion cardiovascular regular rate and rhythm respirations even unlabored in the bases abdomen benign moves all extremities neurologic awake alert no focal deficits psychiatric blunted mood and affect Objective Last Vital Signs Temp 36.5 C 09/03/24 07:49 Pulse 52 L 09/03/24 07:49 Resp 14 09/03/24 07:49 BP 109/65 09/03/24 07:49 Pulse Ox 97 09/03/24 07:49 Laboratory Results - last 24 hr 09/02/24 09/02/24 09/02/24 16:04 17:04 17:04 WBC 13.10 H RBC 4.20 L Hgb 12.2 L Hct 38.1 L MCV 91 MCH 29.0 MCHC 32.0 RDW 13.2 Plt Count 297 MPV 9.8 Immature Gran % 0.6 Neutrophils % 78.7 Lymphocytes % 13.1 Monocytes % 6.2 Eosinophils % 1.1 Basophils % 0.3 Nucleated RBC % 0.0 Absolute Neutrophils 10.31 H Absolute Lymphocytes 1.72 Absolute Monocytes 0.81 H Absolute Eosinophils 0.14 Absolute Basophils 0.04 PT 10.9 INR 1.1 APTT 25.9 Sodium 142 Potassium 4.3 Chloride 106 Carbon Dioxide 27.4 Anion Gap 8.6 BUN 22 H Creatinine 2.0 H Est GFR (CKD-EPI 2020) 31.71 Glucose 135 H Calcium 9.2 Magnesium 1.7 L Cancelled Total Bilirubin 0.5 AST 32 ALT 33 Alkaline Phosphatase 157 H Total Protein 6.7 Albumin 2.8 L Lipase 23 Urine Color Yellow Urine Clarity Clear Urine pH 7.0 Ur Specific [place] 1.020 Urine Protein 30 H Urine Ketones Negative Urine Blood Trace-intact H Urine Nitrite Negative Urine Bilirubin Negative Urine Urobilinogen 0.2 Ur Leukocyte Esterase Negative Urine RBC 0-2 Urine WBC Negative Ur Epithelial Cells Rare Urine Crystals Rare Amorphous Urine Bacteria Negative Urine Casts 0-2 Hyaline Urine Mucus Trace Ur Culture Indicated? No Urine Glucose Negative COVID-19 Source SARS-CoV-2 (PCR) Influenza Type A (PCR) Influenza Type B (PCR) RSV (PCR) ABO/Rh O Positive Antibody Screen NEGATIVE 09/03/24 09/03/24 00:20 06:15 WBC 11.14 H RBC 3.98 L Hgb 11.4 L Hct 36.2 L MCV 91 MCH 28.6 MCHC 31.5 L RDW 13.0 Plt Count 297 MPV 9.8 Immature Gran % Neutrophils % Lymphocytes % Monocytes % Eosinophils % Basophils % Nucleated RBC % Absolute Neutrophils Absolute Lymphocytes Absolute Monocytes Absolute Eosinophils Absolute Basophils PT INR APTT Sodium 141 Potassium 3.7 Chloride 105 Carbon Dioxide 27.9 Anion Gap 8.1 BUN 19 H Creatinine 2.1 H Est GFR (CKD-EPI 2020) 29.90 Glucose 128 H Calcium 9.2 Magnesium 1.7 L Total Bilirubin 0.5 AST 28 ALT 29 Alkaline Phosphatase 136 H Total Protein 6.4 Albumin 2.5 L Lipase Urine Color Urine Clarity Urine pH Ur Specific [place] Urine Protein Urine Ketones Urine Blood Urine Nitrite Urine Bilirubin Urine Urobilinogen Ur Leukocyte Esterase Urine RBC Urine WBC Ur Epithelial Cells Urine Crystals Urine Bacteria Urine Casts Urine Mucus Ur Culture Indicated? Urine Glucose COVID-19 Source Nasopharynx SARS-CoV-2 (PCR) Negative Influenza Type A (PCR) Negative Influenza Type B (PCR) Negative RSV (PCR) Negative ABO/Rh Antibody Screen PAWSS Have you Been Recently Intoxicated or Drunk Within the Last 30 days?: No Have you Ever Experienced Previous Episodes of Alcohol Withdrawal?: No Have you ever Experienced Withdrawal Seizures?: No Have you ever Experienced Delirium Tremens(DT)s?: No Have you ever undergone Alcohol Rehabilitation Treatment (i.e, inpt ot out patient treatment programs)?: No Have you ever Experienced Blackouts?: No Have you ever Combined Alcohol with other Downers within the last 90 days?: No Have you ever Combined Alcohol with any other Substance of Abuse during the last 90 days?: No Positive Blood Alcohol level on Presentation? [PCS.BAL]: No Evidence of Increased Autonomic Activity (i.e. HR>120, tremor, sweating, agitation, nausea)?: No Result: 0 Time Spent with Patient Time Spent with Patient: 35-49 minutes Time was spent: preparing to see the patient(eg.review tests), obtaining and/or reviewing separately otained hiistory, ordering medications,tests, procedures, referring, communicating with other health hospice spiritual care coordinator, indepentently interpreting results and care coordination
[2024-09-03 15:20] VITALS: BP 113/69; PULSE 51; RESP 12; TEMP 36.4; O2SAT 98
[2024-09-03 19:15] VITALS: BP 118/56; PULSE 56; RESP 19; TEMP 37; O2SAT 94
[2024-09-03] MEDS: Atorvastatin 40 MG TAB PO (19:40)
[2024-09-04 03:22] VITALS: BP 119/66; PULSE 68; RESP 20; TEMP 37.4; O2SAT 97
[2024-09-04 06:39] LABS: HCT 32.8 % (40.0-50.0); HGB 10.4 g/dL (13.5-17.5); MCH 28.9 pg (27.0-33.0); MCHC 31.7 % (32.0-36.0); MCV 91 fL (80-95); MPV 10.1 fL (8.0-11.0); Platelet Count 265 10^3/uL (130-400); RDW 13.5 % (11.8-14.1); RDW-SD 44.7 fL
[2024-09-04 07:11] LABS: ALT 27 U/L (16-63); AST 26 U/L (15-37); Albumin 2.4 g/dL (3.4-5.0); Alkaline Phosphatase 133 U/L (46-116); Anion Gap 6.4 mmol/L (3-11); BUN 26 mg/dL (7-18); Bilirubin, Total 0.4 mg/dL (0.2-1.0); CO2 26.6 mmol/L (21.0-32.0); CREATININE 2.7 mg/dL (0.70-1.30); Calcium 9.2 mg/dL (8.5-10.1); Chloride 105 mmol/L (98-107); Estimated GFR 22.12 (mL/min/1.73m2); Glucose 118 mg/dL (74-106); Magnesium 1.9 mg/dL (1.8-2.4); Sodium 138 mmol/L (136-145); Total Protein 6.1 g/dL (6.4-8.2)
[2024-09-04 07:41] VITALS: BP 118/65; PULSE 57; RESP 14; TEMP 36.6; O2SAT 94
[2024-09-04] MEDS: Tamsulosin 0.4 MG CAPCR PO (08:52)
[2024-09-04] MEDS: Lactobacillus Acidophilus CAP 1 CAP PO (08:52)
[2024-09-04] MEDS: Cholecalciferol (Vitamin D3) 1,000 UNIT TAB 1000 UNITS PO (08:52)
[2024-09-04] MEDS: Cyanocobalamin 500 MCG TAB 1000 MCG PO (08:52)
[2024-09-04] MEDS: Magnesium Oxide 400 MG TAB PO (08:52)
[2024-09-04] MEDS: Normal Saline Flush 10 ML SYR IVP (08:52)
[2024-09-04] MEDS: Metoprolol 12.5 MG TAB PO (08:53)
[2024-09-04] MEDS: Calcitriol 0.25 MCG CAP PO (08:53)
[2024-09-04] MEDS: amLODIPine 5 MG TAB PO (10:41)
--- NOTE | 2024-09-04 11:13 | DSE_ITS ---
Date of service: 09/04/24 Time of Service: 11:15 DS: Diagnosis Discharge Diagnosis (1) Abdominal aortic aneurysm: Status: Chronic (2) Abscess, psoas: Status: Suspected (3) Goals of care, counseling/discussion: Status: Acute (4) HTN (hypertension): Status: Chronic (5) CAD (coronary artery disease): Status: Chronic (6) Atrial fibrillation: Status: Chronic (7) Ischemic cardiomyopathy: Status: Chronic (8) Chronic kidney disease, stage 4 (severe): Status: Chronic (9) BPH (benign prostatic hyperplasia): Status: Chronic (10) Type 2 diabetes mellitus: Status: Chronic Discharge Plan Disposition Patient Disposition: Home W/Hospice Services Condition: Poor Discharge Details Reason For Visit: 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 He has an abdominal aortic aneurysm and is status post endovascular stenting of the lower aorta to the iliacs with chronic leakage of the aneurysm expanding at this time. His workup also did show expanding infrarenal aneurysm and possible rupture versus abscess on the left psoas muscle. This was discussed with him and he did not want to proceed with any further intervention or antibiotics. He has been followed by palliative care and is wanting to be discharged to home on hospice services. He was admitted under the hospitalist service while this is being arranged. His pain has been well-controlled and he has not required any pain medication overnight. He was evaluated by hospice and plan is for admission to hospice on FridaySeptember 05, he is able to discharge to home with his caregiver and will be prescribed Dilaudid 2 mg tabs x 2 and Ativan 1 mg tab x 2 in case needed prior to hospice admission tomorrow. Again he has not required any pain medication overnight or today. Being discharged to home with hospice referral plan for admission tomorrow discussed with DR Leon Home Meds and New Rx's Prescriptions: New lorazepam [Ativan] 1 mg tablet 1 mg PO BID PRNQty: 2 0RF hydromorphone [Dilaudid] 2 mg tablet 2 mg PO Q6H PRNQty: 2 0RF Continued tamsulosin 0.4 mg capsule 0.4 mg PO DAILY insulin aspart U-100 [Novolog FlexPen U-100 Insulin] 100 unit/mL (3 mL) insulin pen 3 unit subcut TID oxycodone-acetaminophen 2.5-325 mg tablet 1 tab PO Q6H MDD 4 PRN (Reason: pain) Qty: 14 0RF morphine concentrate 100 mg/5 mL (20 mg/mL) solution 40 mg PO Q1-4H MDD 480 PRN (Reason: pain) Qty: 15 0RF Rx Instructions: severe pain associated w/suspected rupture of AAA Emergency action plan for rupture of AAA - call 911 prior to administering medication amlodipine 2.5 mg tablet 5 mg PO DAILY allopurinol 100 mg tablet 100 mg PO .every other day insulin glargine 100 unit/mL solution 5 unit subcut QPM magnesium oxide 400 mg magnesium capsule 400 mg PO BID Patient Comments: pt. reports he has been out of it nitroglycerin [Nitrostat] 0.4 mg tablet, sublingual 0.4 mg sublingual Q5 MIN PRN X3 PRN Rx Instructions: as a single dose; administer 5-10 minutes before situation known to precipitate angina attack apixaban 2.5 mg tablet 2.5 mg PO BID Patient Comments: 11/27/20 started at [facility] [place] due to elevated creatinine 2.4 RH alogliptin 6.25 mg tablet 6.25 mg PO DAILY calcitriol 0.25 mcg capsule 0.25 mcg PO DAILY cholecalciferol (vitamin D3) 25 mcg (1,000 unit) capsule 25 mcg PO DAILY morphine concentrate 100 mg/5 mL (20 mg/mL) solution See Rx Instructions PO Q1H PRN MDD 24 ml Qty: 30 0RF Rx Instructions: 0.25-1.0 ml orally every 1 hour, as needed; HOSPICE lorazepam 1 mg tablet 1 mg PO QID PRN (Reason: anxiety, nausea, or dyspnea) Qty: 6 5RF Rx Instructions: hospice acetaminophen 650 mg suppository 650 mg WV Q6H PRN (Reason: fever, mild pain) Qty: 6 0RF Rx Instructions: Hospice Patient hyoscyamine sulfate 0.125 mg tablet,disintegrating 0.125 - 0.25 mg PO Q4H PRN (Reason: secretions) Qty: 24 0RF Rx Instructions: Hospice Patient lorazepam 1 mg tablet 1 mg PO Q4H PRN (Reason: anxiety, STEINER or nausea) Qty: 6 5RF Rx Instructions: Hospice Patient haloperidol lactate 2 mg/mL concentrate 1 mg PO Q6H PRN (Reason: agitation) Qty: 15 0RF Rx Instructions: Hospice Patient morphine concentrate 100 mg/5 mL (20 mg/mL) solution 5 - 20 mg PO Q1H PRN MDD 5 mL PRN (Reason: moderate to severe pain or shortness of breath) Qty: 30 0RF Rx Instructions: Hospice Patient prochlorperazine maleate 10 mg tablet 10 mg PO Q6H PRN (Reason: nausea and vomiting) Qty: 6 0RF Rx Instructions: Hospice Patient bisacodyl [Dulcolax (bisacodyl)] 10 mg suppository 10 mg WV daily PRN (Reason: constipation) Qty: 2 0RF Rx Instructions: Hospice Patient Insert 1 supp WV Daily PRN constipation (no BM in 3 days) morphine concentrate 100 mg/5 mL (20 mg/mL) solution 5 - 20 mg PO Q1H PRN MDD 24 mL Qty: 30 0RF Rx Instructions: hospice (in addition to comfort kit) atorvastatin [Lipitor] 40 MG tablet 40 mg PO QPM acetaminophen [Acetaminophen Extra Strength] 500 mg Tablet 1,000 mg PO Q8H PRN cyanocobalamin (vitamin B-12) 1,000 mcg Tablet 1,000 mcg PO DAILY metoprolol succinate 50 mg tablet extended release 24 hr 25 mg PO DAILY Qty: 0 0RF Bio-K plus 50 billion cell capsule,delayed release(DR/EC) 1 cap PO DAILY Qty: 10 0RF Discharge Instructions Instructions: Dealing With , Adult, Aortic Aneurysm (DC) Stand Alone Forms: Nursing Discharge Form Referrals: Rose Marie Li NP [NURSE PRACTITIONER] - Maximino Lucero [Primary Care Provider] - (Called and left a message, if no call back by 09/06 please call to schedule a follow-up appointment.) Activity:: Activity as Tolerated Equipment/Supplies:: No Equipment Needed Diet:: As Tolerated Discharge Orders Discharge Orders: Discharge Order (Routine); Ordered 09/04/24 Ordered By: Sonia Serrano Discharge Data Discharge Date/Time-TO BE ENTERED AT DEPARTURE: 09/04/24 12:53 DS: Summary Time Spent with Patient providing and/or coordinating discharge services: Greater than 30 minutes Status at Discharge Functional status at discharge: uses cane/walker Overall status at discharge: patient is back to baseline Mental Status: mental status grossly normal Speech and Movement: speech and movement normal Mood: congruent mood Affect: normal affect Quality:SDOH Health Related Social Needs: Health related social needs inadequate housing (Z59.1) , food insecurity (Z59.41), material hardship(utilities) (Z59.12), problems related to housing/economic circumstances (Z59.89), feeling lonely/isolated (Z60.8), education (Z55.6) Health related social needs details pt would like help with heating costs Health related social needs details: pt would like help with heating costs Exam Narrative Exam Narrative: Frail elderly male of stated age no acute distress head is atraumatic eyes nonicteric noninjected neck full range of motion cardiovascular regular rate and rhythm respirations even unlabored in the bases abdomen benign moves all extremities neurologic awake alert oriented with no focal deficits psychiatric appropriate mood and affect Psych Mental Status: mental status grossly normal Speech and Movement: speech and movement normal Mood: congruent mood Affect: normal affect DS: Data Vitals/I&O Vitals and I&O: Vital Signs Temperature 36.6 C 09/04/24 07:41 Temperature Source Temporal Artery Scan 09/04/24 07:41 Pulse 57 L 09/04/24 07:41 Pulse Rhythm Irregular 09/03/24 01:16 Respiratory Rate 14 09/04/24 07:41 Respiratory Effort Normal, Non-Labored 09/03/24 01:16 Respiratory Depth Normal 09/03/24 01:16 Respiratory Pattern Normal 09/03/24 01:16 Blood Pressure 118/65 09/04/24 07:41 Blood Pressure Mean 82 09/04/24 07:41 Blood Pressure Position Supine 09/02/24 17:34 Pulse Oximetry 94 09/04/24 07:41 Oxygen Delivery Method Room Air 09/04/24 07:41 Oxygen Flow Rate 0 09/04/24 07:41 Pain Level 0 09/04/24 03:22 Comment VS deferred as patient asleep 09/03/24 23:45 Intake & Output 05/06/2909/03/24 09/04/24 11:59 23:59 11:59 Intake Total 130 / 130 Output Total 100 / 100 Balance 130 / 30 -100 / 30 Weight 77.519 kg 74.2 kg Intake: IV 10 / 10 Oral 120 / 120 Output: Urine 100 / 100 Other: Urine Color Light Carmela Yellow Urine Appearance Clear Clear Urine Odor Normal Comment Pt voided in toilet. pt void in urinal on request- stated he had been using the toilet to void. Patient voided ind. in the toilet. Data Completed and Pending Labs on day of discharge: Labs from last 24 hours 09/04/24 06:14: WBC 14.00 H, RBC 3.60 L, Hgb 10.4 L, Hct 32.8 L, MCV 91, MCH 28.9, MCHC 31.7 L, RDW 13.5, Plt Count 265, MPV 10.1, Sodium 138, Potassium 4.0, Chloride 105, Carbon Dioxide 26.6, Anion Gap 6.4, BUN 26 H, Creatinine 2.7 H, Est GFR (CKD-EPI 2020) 22.12, Glucose 118 H, Calcium 9.2, Magnesium 1.9, Total Bilirubin 0.4, AST 26, ALT 27, Alkaline Phosphatase 133 H, Total Protein 6.1 L, Albumin 2.4 L Preliminary micro results at discharge 09/02/24 20:23 Blood Blood Culture - Preliminary NO GROWTH 24 HOURS 09/02/24 20:20 Blood Blood Culture - Preliminary NO GROWTH 24 HOURS PFSH All Active Problems (Updated 09/03/24 @ 14:37 by Sonia Serrano NP) Goals of care, counseling/discussion (Acute) Palliative care encounter (Acute) 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, right hand (Chronic) Rib fracture (Acute) BPH (benign prostatic hyperplasia) (Chronic) Abdominal aortic aneurysm (Chronic) Aortic aneurysm, thoracic (Acute) Closed rib fracture (Acute) Unsteady gait (Acute) Impaired instrumental activities of daily living (Acute) Left ankle sprain (Acute 05/03/24) Weight loss (Acute) Deficit in activities of daily living (ADL) (Acute) Hard of hearing (Acute) Financial difficulties (Acute) Palliative care patient (Acute) ACP (advance care planning) (Acute) Fracture of proximal end of left humerus (Acute ~02/06/24) Gout of left knee (Chronic) Trigger thumb of left hand (Acute) Acute kidney injury superimposed on CKD (Acute) Severe sepsis (Acute) Chronic kidney disease, stage 4 (severe) (Chronic) HTN (hypertension) (Chronic) CAD (coronary artery disease) (Chronic) Dermatitis (Acute) Atrial fibrillation (Chronic) Acute non-ST elevation myocardial infarction (NSTEMI) (Acute) Wound dehiscence, surgical (Acute) Type 2 diabetes mellitus (Chronic) Fatty liver (Acute) Mass of salivary gland (Acute) Ischemic cardiomyopathy (Chronic) Skin lesion of scalp (Acute) Anemia (Chronic) Hearing impairment (Acute) Medical History Chest pain Chronic kidney disease, stage 3 HLD (hyperlipidemia) Former smoker Balanitis Atrial flutter Edema [place]'s disease Phimosis (10/17/15) Erectile dysfunction AAA (abdominal aortic aneurysm) Renal insufficiency 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) Diverticulitis of large intestine with abscess Hypercholesterolemia Diabetes mellitus Myocardial infarct Phimosis Surgical History Status post colostomy takedown (~03/01/20) S/P left hemicolectomy (~07/19/18) H/O phimosis s/p repair History of heart artery stent S/P hernia repair History of endovascular stent graft for abdominal aortic aneurysm (AAA) Social History Smoking/Tobacco Use Status: Former Tobacco Use Quit Date: 01/03/17 Tobacco: How many years used: 60 Smoking risk assessment performed?: Yes Alcohol Intake: former Drug use: Never Substance use type: does not use Housing: house Do you feel safe at home: Yes Do you feel safe in your relationship?: Yes Additional Social history: at side Time Spent with Patient Time Spent with Patient: 45-69 minutes Time was spent: preparing to see the patient(eg.review tests), obtaining and/or reviewing separately otained hiistory, ordering medications,tests, procedures, referring, communicating with other health child care assistant, indepentently interpreting results, counseling the patient and care coordination
--- NOTE | 2024-09-04 11:23 | PDOC.CMDIS ---
Date of service: 09/04/24 Time of Service: 11:23 LACE Index Scoring Tool Questions: Length of Stay (in days): 3 Was the patient admitted via the E.D.?: Yes Comorbidities: Diabetes w/o Complication and Liver or Renal Disease E.D. Visits: 5 Answers: Total Score: 15 Risk of Readmission: High Risk Care Management Discharge Plan Reason for Hospitalization: AAA Leaking with myotic aneurysm Discharge Plan: Cesar is being discharged home with a next day admission to Hospice services. He is being transported via private vehicle with his caregiver/female wool shearer Montse. Pt will follow up with Hospice and discharge plan of care as directed. Patient/Family Education Needs: Review discharge instructions and plans to admit to Hospice services. Discuss ask me three. Services Needed at Discharge: Home Health Care Services (Admit to hospice on Friday (CM confirmed with process control board operator RN) ) SDOH Health Related Social Needs: Health related social needs inadequate housing (Z59.1), food insecurity (Z59.41), material hardship(utilities) (Z59.12), problems related to housing/economic circumstances (Z59.89), feeling lonely/isolated (Z60.8), education (Z55.6) Health related social needs details pt would like help with heating costs Health related social needs details: pt would like help with heating costs
[2024-09-04 11:28] VITALS: BP 120/63; PULSE 53; RESP 15; O2SAT 96
== END 2024-09-04 12:53 | disposition hospice, home (50) | DRG 299 ==
LOC: ER 09-03 00:12 → MS 09-03 09:16
PROVIDERS: Admitting Provider Family Medicine; Emergency Provider Emergency Medicine; PCP Student in an Organized Health Care Education/Training Program; Visit Provider Family Medicine
DX: I71.33 Infrarenal abdominal aortic aneurysm, ruptured (principal); K68.12 Psoas muscle abscess; N18.4 Chronic kidney disease, stage 4 (severe); I48.92 Unspecified atrial flutter; N13.8 Other obstructive and reflux uropathy; Z59.12 Inadequate housing utilities; I25.10 Atherosclerotic heart disease of native coronary artery without angina pectoris; I48.0 Paroxysmal atrial fibrillation; I25.5 Ischemic cardiomyopathy; M1A.3410 Chronic gout due to renal impairment, right hand, without tophus (tophi); E11.22 Type 2 diabetes mellitus with diabetic chronic kidney disease; Z79.4 Long term (current) use of insulin; Z95.828 Presence of other vascular implants and grafts; Z79.01 Long term (current) use of anticoagulants; Z66 Do not resuscitate; R26.81 Unsteadiness on feet; R63.4 Abnormal weight loss; I12.9 Hypertensive chronic kidney disease with stage 1 through stage 4 chronic kidney disease, or unspecified chronic kidney disease; D64.9 Anemia, unspecified; K76.0 Fatty (change of) liver, not elsewhere classified; L11.1 Transient acantholytic dermatosis [Grover]; Z87.891 Personal history of nicotine dependence; N40.1 Benign prostatic hyperplasia with lower urinary tract symptoms; I25.2 Old myocardial infarction; E78.00 Pure hypercholesterolemia, unspecified; Z90.49 Acquired absence of other specified parts of digestive tract; I71.20 Thoracic aortic aneurysm, without rupture, unspecified
CPT/HCPCS: 00123; 36415; 80053; 83690; 85027; 86850; 86900; 86901; 87040; 87637; 96374; 96375; 96376; 99285; 74174; 74176; 81003; 81015; 83735; 85025; 85610; 85730; 99223; 99233; 99239; J1171; J1815; J2270; J3490

== ENCOUNTER 2024-09-09 14:02 | Inpatient (IN) | payer OTHER, SELFPAY ==
[2024-09-09 14:15] VITALS: BP 105/65; PULSE 51; RESP 18; TEMP 36.2; O2SAT 96
[2024-09-09 14:27] VITALS: BP 105/65; PULSE 51; RESP 18; TEMP 36.2; O2SAT 96
[2024-09-09] MEDS: MORPHine Oral Solution 10 MG/5 ML CUP PO (15:23)
--- NOTE | 2024-09-09 16:26 | W.PC.ACHO ---
Registration Status: Primary Language: Preferred Language: Medical / Surgical History (Last Reviewed 09/03/24 @ 14:23 by Bello Lassiter) Chest pain Chronic kidney disease, stage 3 HLD (hyperlipidemia) Former smoker Balanitis Atrial flutter Edema [place]'s disease Phimosis (10/17/15) Erectile dysfunction AAA (abdominal aortic aneurysm) Renal insufficiency 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) Diverticulitis of large intestine with abscess Hypercholesterolemia Diabetes mellitus Myocardial infarct Phimosis (Last Reviewed 09/03/24 @ 14:23 by Bello Lassiter) Status post colostomy takedown (~03/01/20) S/P left hemicolectomy (~07/19/18) H/O phimosis History of heart artery stent S/P hernia repair History of endovascular stent graft for abdominal aortic aneurysm (AAA) Most Recent Vital Signs Temperature 36.2 C L 09/09/24 14:27 Pulse 51 L 09/09/24 14:27 Pulse Rhythm Regular 09/09/24 14:27 Respiratory Rate 18 09/09/24 14:27 Respiratory Effort Normal, Non-Labored 09/09/24 14:27 Respiratory Depth Normal 09/09/24 14:27 Respiratory Pattern Normal 09/09/24 14:27 Blood Pressure 105/65 09/09/24 14:27 Pulse Oximetry 96 09/09/24 14:27 Oxygen Delivery Method Room Air 09/09/24 14:27 Oxygen Flow Rate 0 09/09/24 14:27 Pain Level 0 09/09/24 14:27 Allergies adhesive Allergy (Severe, Verified 09/02/24 16:03) significant skin reaction, swelling, erythema, discomfort Tegaderm, mepilex border dressing neomycin Allergy (Verified 09/02/24 16:03) Unknown Active Medications Generic Name Dose Route Start Last Admin Trade Name Freq PRN Reason Stop Dose Admin Morphine Sulfate 5 - 10 mg 09/09/24 15:00 09/09/24 15:23 Morphine Oral Solution 10 Mg/5 Ml Cup PO 5 mg Q1H PRN PRN Administration Diet Orders Category Date Time Status Heart Healthy Eating [DIET] Nutrition 09/09/24 Dinner Active Intake and Output - 24 Hour Total 09/09/24 thru 09/09/24 14:27 Weight 76.7 kg v v v v v v v v v Sending and/or Receiving Nurses: Please use comment section below to note any information pertinent to the patient hand-off not included above. Information / Comments: Report received from: Patient arrived on unit at 13:55. Transported from home by EMS. No report received.
--- NOTE | 2024-09-09 17:41 | CHAPLAIN ---
Ovidio was here about a week ago and went home on hospice care. His partner Montse said they'd had a good week at home and today he woke up with pain and she called hospice and followed their instructions to administer morphine. Then Ovidio became dizzy and was directly admitted, according to Montse. Ovidio seemed tired, but recognized me when he opened his eyes. He sat up to eat some dinner. I will check in with them again tomorrow.
--- NOTE | 2024-09-09 19:38 | HPE_ITS ---
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 * Comfort measures only; no further intervention planned per patient preference. * Continue hospice-directed care with focus on symptom management. 3. Symptom Management * Patient currently denies pain or dyspnea. * Received 8 mg IV morphine over past 24 hrs. * No PRN needs at time of evaluation. * Consider transition to fentanyl patch if needed upon discharge from respite. * Liquid morphine to be continued as PRN at home. 4. Psychosocial/Goals of Care * DNR/DNI confirmed; COLST on file. * Patient desires to at home, but caregiver not able to support this at present. * Hospice to assist with reevaluation of long-term care planning as needed. * Patient has decisional capacity and agreed to plan after discussion. (2) Caregiver burden: Status: Acute Assessment and plan: * Caregiver (Montse) verbalized emotional and physical inability to continue providing care at home. * Expressed significant distress and trauma-related concerns around witnessing at home. * Patient agreed to inpatient respite stay to provide caregiver relief. * Admission to [facility] medical floor completed under hospice respite benefit. * Hospice CINDER SNAPPER to follow up with caregiver for emotional support and post-respite planning. (3) Abscess, psoas: Status: Suspected Assessment and plan: declines further evaluation and antiboitics (4) HTN (hypertension): Status: Chronic Assessment and plan: Currently continuing home meds per patient and caregivers wishes (5) CAD (coronary artery disease): Status: Chronic Assessment and plan: Currently continuing home meds per patient and caregivers wishes (6) Atrial fibrillation: Status: Chronic Assessment and plan: Currently continuing home meds per patient and caregivers wishes Apixaban was discontinued on prior admission (7) Ischemic cardiomyopathy: Status: Chronic Assessment and plan: Currently continuing home meds per patient and caregivers wishes (8) Chronic kidney disease, stage 4 (severe): Status: Chronic (9) BPH (benign prostatic hyperplasia): Status: Chronic Assessment and plan: Currently continuing home meds per patient and caregivers wishes (10) Type 2 diabetes mellitus: Status: Chronic Assessment and plan: Currently continuing home meds per patient and caregivers wishes SSI q6h finger sticks - minimal oral intake History of Present Illness History of Present Illness Chief Complaint: Caregiver burden Narrative: This is an 88-year-old male with a complex medical history who presented to the [facility] ED on 09/01/2024 with new right flank pain. 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 Given the findings and clinical context, a palliative care consult was obtained. The patient was evaluated for goals of care. He clearly stated a preference for non-interventional, comfort-focused care. He understands the risk of aneurysm rupture and is not interested in surgery or antibiotics. He prefers to at home with hospice support. He reported a >30 lb unintentional weight loss over the past year, with over 10 lbs lost in the past 2 months. Appetite is poor. He spends most of his time in a recliner watching TV and dozing during the day, though he sleeps well at night. He notes shortness of breath with exertion and has had two falls in recent months. He at that time was pain-free after having received 8 mg of IV morphine. At that time he was able to manage his own personal hygiene. He has an established DNR/DNI status with a [place] COLST on file. He has children but prefers not to discuss them. He wishes to be cremated and has asked for hospice support in planning. Patient was discharged to home on 09/04/2024; Montse, lives with Ovidio, understands the role and agreed to be his caregiver. Home visit conducted today, 09/09/2024, patient was found sleeping in a recliner. He appeared comfortable, breathing without distress. Present at the visit was caregiver Montse, who was visibly distressed, sobbing and expressing significant emotional and physical exhaustion related to her caregiving responsibilities. Montse verbalized that she is no longer able to care for Ovidio, stating, I can't do this anymore?physically or emotionally. She described previous traumatic experiences including watching her mother and discovering an individual who had by suicide after struggling to breathe. These events are deeply affecting her ability to cope with Ovidio's current condition. Montse stated explicitly that she no longer wants Ovidio to remain in her home and does not want to witness his dying process. She reports having no family support and emphasized feeling overwhelmed. Although hospice resources and the potential for in-home support were reviewed?including private hired 25/11 care options?Montse expressed that even with such services, she is not emotionally able to continue caring for him at home. She stated, I just can?t watch him like the others. We discussed inpatient respite care under hospice at the hospital. Montse agreed this would be beneficial for both her and Ovidio. The conversation was held with both Montse and the patient. Ovidio initially hesitated but was receptive after Montse explained her emotional and physical limits. He ultimately agreed to return to the hospital for respite care, stating he understood the purpose was to provide Montse with needed relief. When awake, he was oriented and able to repeat back the plan. ADDITIONAL OBSERVATIONS: * Patient denies pain * No shortness of breath * No visible distress * No signs of acute decompensation * Appears stable and comfortable at time of evaluation * Demonstrates capacity to understand and participate in medical decision-making Due to significant caregiver burden, including emotional and physical exhaustion, the patient is being admitted for hospice respite care. His caregiver, Montse, has expressed an inability to continue providing care at home, and respite care will offer her the necessary relief while ensuring the patient?s comfort and continued symptom management. ASSESSMENT: * Advanced chronic illness requiring high-level caregiver support * Caregiver (Montse) expressing severe emotional distress and inability to continue providing care * No additional family or support system reported * Patient agreeable to short-term respite care after counseling PLAN: * Hospice respite admission coordinated through [facility] * Hospice medical supply technician, hospital nursing scouring pads supervisor, and field operations coordinator contacted * Transport arranged and completed * Patient admitted to medical floor at [facility] for hospice respite care * Continue supportive care and reassess longer-term hospice setting if needed * Hospice CINDER SNAPPER to follow up with Montse for emotional support and planning PAST MEDICAL HISTORY: * Abdominal aortic aneurysm, post-EVAR with chronic endoleak * Thoracic aortic aneurysm * Suspected left psoas abscess * Coronary artery disease * Atrial fibrillation * Ischemic cardiomyopathy * Hypertension * Type 2 diabetes mellitus * Chronic kidney disease, Stage 4 * Benign prostatic hyperplasia PAST SURGICAL HISTORY: * Endovascular aortic stent placement (EVAR) MEDICATIONS: [To be reconciled] Recent: Morphine at home ALLERGIES: Adhesive Neomycin SOCIAL HISTORY: * Lives at home with caregiver (Montse) * Functionally independent with ADLs * Sedentary lifestyle * Retired * Non-smoker, no alcohol or illicit drug use * Strong desire to at home * Declines discussion about children * Wishes cremation after ; seeking support from hospice CINDER SNAPPER FAMILY HISTORY: Not discussed; patient declined DISPOSITION: Admitted for respite care under hospice service. 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, right hand (Chronic) Rib fracture (Acute) BPH (benign prostatic hyperplasia) (Chronic) Abdominal aortic aneurysm (Chronic) Aortic aneurysm, thoracic (Acute) Closed rib fracture (Acute) Unsteady gait (Acute) Impaired instrumental activities of daily living (Acute) Left ankle sprain (Acute 05/03/24) Weight loss (Acute) Deficit in activities of daily living (ADL) (Acute) Hard of hearing (Acute) Financial difficulties (Acute) Palliative care patient (Acute) ACP (advance care planning) (Acute) Fracture of proximal end of left humerus (Acute ~02/06/24) Gout of left knee (Chronic) Trigger thumb of left hand (Acute) Acute kidney injury superimposed on CKD (Acute) Severe sepsis (Acute) Chronic kidney disease, stage 4 (severe) (Chronic) HTN (hypertension) (Chronic) CAD (coronary artery disease) (Chronic) Dermatitis (Acute) Atrial fibrillation (Chronic) Acute non-ST elevation myocardial infarction (NSTEMI) (Acute) Wound dehiscence, surgical (Acute) Type 2 diabetes mellitus (Chronic) Fatty liver (Acute) Mass of salivary gland (Acute) Ischemic cardiomyopathy (Chronic) Skin lesion of scalp (Acute) Anemia (Chronic) Hearing impairment (Acute) Medical History Chest pain Chronic kidney disease, stage 3 HLD (hyperlipidemia) Former smoker Balanitis Atrial flutter Edema Cruz's disease Phimosis (10/17/15) Erectile dysfunction AAA (abdominal aortic aneurysm) Renal insufficiency 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) Diverticulitis of large intestine with abscess Hypercholesterolemia Diabetes mellitus Myocardial infarct Phimosis Surgical History Status post colostomy takedown (~03/01/20) S/P left hemicolectomy (~07/19/18) H/O phimosis s/p repair History of heart artery stent S/P hernia repair History of endovascular stent graft for abdominal aortic aneurysm (AAA) Social History Smoking/Tobacco Use Status: Former Tobacco Use Quit Date: 01/03/17 Tobacco: How many years used: 60 Smoking risk assessment performed?: Yes Alcohol Intake: former Drug use: Never Substance use type: does not use Housing: house Do you feel safe at home: Yes Do you feel safe in your relationship?: Yes Additional Social history: at side Meds Allergies and Home Medications Allergies Allergy/AdvReac Type Severity Reaction Status Date / Time adhesive Allergy Severe significant Verified 09/02/24 16:03 skin reaction, swelling, erythema, discomfort neomycin Allergy Unknown Verified 09/02/24 16:03 Home Medications ?Medication ?Instructions ?Recorded ?Confirmed ?Type atorvastatin 40 mg tablet (Lipitor) 40 mg PO QPM 09/20/17 09/09/24 History magnesium oxide 400 mg PO BID 01/14/20 09/09/24 History nitroglycerin 0.4 mg sublingual 0.4 mg sublingual Q5 MIN PRN X3 PRN 01/14/20 09/09/24 History tablet (Nitrostat) acetaminophen 500 mg tablet 1,000 mg PO Q8H PRN 02/29/20 09/09/24 History (Acetaminophen Extra Strength) cyanocobalamin (vitamin B-12) 1,000 mcg PO DAILY 03/01/20 09/09/24 History 1,000 mcg tablet tamsulosin 0.4 mg capsule 0.4 mg PO DAILY 11/27/20 09/09/24 History apixaban 2.5 mg tablet 2.5 mg PO BID 05/31/21 09/09/24 History alogliptin 6.25 mg tablet 6.25 mg PO DAILY 10/07/23 09/09/24 History calcitriol 0.25 mcg capsule 0.25 mcg PO DAILY 10/07/23 09/09/24 History cholecalciferol (vitamin D3) 25 25 mcg PO DAILY 10/07/23 09/09/24 History mcg (1,000 unit) capsule metoprolol succinate 50 mg 25 mg (1/2 x 50 mg) PO DAILY #0 10/07/23 09/09/24 Rx tablet,extended release 24 hr tabs allopurinol 100 mg tablet 100 mg PO .every other day 01/21/24 09/09/24 History insulin glargine 100 unit/mL 5 unit subcut QPM 01/21/24 09/09/24 History subcutaneous solution amlodipine 2.5 mg tablet 5 mg PO DAILY 03/16/24 09/09/24 History insulin aspart U-100 100 unit/mL 3 unit subcut TID 03/16/24 09/09/24 History (3 mL) subcutaneous pen (Novolog FlexPen U-100 Insulin aspart) L. acidophilus,casei,rhamnosus 50 1 cap PO DAILY #10 caps 08/24/24 09/09/24 Rx billion cell capsule,delayed release (Bio-K plus) morphine concentrate 100 mg/5 mL 40 mg (2 mL) PO Q1-4H PRN pain #15 08/30/24 09/09/24 Rx (20 mg/mL) oral solution mL oxycodone-acetaminophen 2.5 mg-325 1 tab PO Q6H PRN pain #14 tabs 08/30/24 09/09/24 Rx mg tablet lorazepam 1 mg tablet 1 mg PO QID PRN anxiety, nausea, 09/03/24 09/09/24 Rx or dyspnea #6 tabs morphine concentrate 100 mg/5 mL See Rx Instructions PO Q1H PRN 09/03/24 09/09/24 Rx (20 mg/mL) oral solution pain or dyspnea #30 mL acetaminophen 650 mg rectal 650 mg NM Q6H PRN fever, mild pain 09/04/24 09/09/24 Rx suppository #6 supp bisacodyl 10 mg rectal suppository 10 mg NM daily PRN constipation #2 09/04/24 09/09/24 Rx (Dulcolax (bisacodyl)) supp haloperidol lactate 2 mg/mL oral 1 mg (0.5 mL) PO Q6H PRN agitation 09/04/24 09/09/24 Rx concentrate #15 mL hydromorphone 2 mg tablet 2 mg PO Q6H PRN #2 tabs 09/04/24 09/09/24 Rx (Dilaudid) hyoscyamine sulfate 0.125 mg 0.125 - 0.25 mg (1 - 2 x 0.125 mg) 09/04/24 09/09/24 Rx disintegrating tablet PO Q4H PRN secretions #24 tabs lorazepam 1 mg tablet 1 mg PO Q4H PRN anxiety, STEINER or 09/04/24 09/09/24 Rx nausea #6 tabs lorazepam 1 mg tablet (Ativan) 1 mg PO BID PRN #2 tabs 09/04/24 09/09/24 Rx morphine concentrate 100 mg/5 mL 5 - 20 mg (0.25 - 1 mL) PO Q1H PRN 09/04/24 09/09/24 Rx (20 mg/mL) oral solution #30 mL morphine concentrate 100 mg/5 mL 5 - 20 mg (0.25 - 1 mL) PO Q1H PRN 09/04/24 09/09/24 Rx (20 mg/mL) oral solution PRN moderate to severe pain or shortness of breath #30 mL prochlorperazine maleate 10 mg 10 mg PO Q6H PRN nausea and 09/04/24 09/09/24 Rx tablet vomiting #6 tabs Exam Narrative Exam Narrative: General: Elderly male, alert, frail, no acute distress HEENT: Normocephalic, atraumatic Neck: Supple, no JVD CV: Irregularly irregular rhythm, no murmur Lungs: Clear to auscultation bilaterally Abdomen: Soft, non-distended, mild right flank tenderness Extremities: No edema Neuro: A&O x2, intermittently sleepy but cooperative Skin: Warm, dry, intact Results Last Vital Signs Temp 36.2 C L 09/09/24 14:27 Pulse 51 L 09/09/24 14:27 Resp 18 09/09/24 14:27 BP 105/65 09/09/24 14:27 Pulse Ox 96 09/09/24 14:27 Time Spent Time spent with Patient: >75 minutes Time was spent: preparing to see the patient(eg.review tests), obtaining and/or reviewing separately otained hiistory, referring, communicating with other health ambulatory care, counseling the patient and care coordination
[2024-09-09] MEDS: Magnesium Oxide 400 MG TAB PO (20:24)
[2024-09-09 20:58] VITALS: BP 146/82; PULSE 58; RESP 18; TEMP 36.5; O2SAT 97
[2024-09-10 07:23] VITALS: BP 101/62; PULSE 62; RESP 16; TEMP 36.8; O2SAT 92
[2024-09-10] MEDS: Magnesium Oxide 400 MG TAB PO ×2 (08:54→21:04)
[2024-09-10] MEDS: amLODIPine 2.5 MG TAB 5 MG PO (08:54)
[2024-09-10] MEDS: Allopurinol 100 MG TAB PO (08:54)
[2024-09-10] MEDS: Docusate Sodium 100 MG CAP PO (08:54)
--- NOTE | 2024-09-10 09:14 | TELEFU_ITS ---
Date of service: 09/10/24 Time of Service: 09:14 Nutrition Note NOTE: Reviewed pt chart/medical hx - noted IT FIELD TECHNICIAN orders. Pt ordered for regular diet with soft and bite size consistencies. Will support po intake with any menu/cafeteria options within pt ordered consistencies as desired. No aggressive nutrition intervention planned at this time. Time Spent in Nutritional Counseling and Treatment: 0
[2024-09-10] MEDS: MORPHine Oral Solution 10 MG/5 ML CUP PO ×3 (09:35→21:04)
--- NOTE | 2024-09-10 10:43 | PHACLINREV_ITS ---
Pharmacy Admission Review Admission Clinical Review Admission Pharmacy Review: Caregiver burden (Acute) adhesive Allergy (Severe, Verified 09/02/24 16:03) significant skin reaction, swelling, erythema, discomfort neomycin Allergy (Verified 09/02/24 16:03) Unknown Resuscitation Status DNR/DNI Height 5 ft 9 in Weight 76.7 kg Comments Comments/Follow Ups: Hospice Respite ENGINEERING DOCUMENT CONTROL CLERK - recently discharged on hospice 09/04/24 Pharmacy Admission Review Renal Dosing Medications needing adjustments: Reviewed (CrCl 20 mL/min) Anticoagulation DVT Prophylaxis: N/A (Hospice Respite) Opiate Usage Evaluate Pain Scale/Pains Meds: Reviewed (morphine 2mg IVP q2h PRN - no doses given, morphine oral solution q1h PRN - 10mg/24hrs) Scheduled Bowel Reg ordered if on Opiates?: Yes (docusate 100mg daily) Relevant Labs Electrolytes, C-Reactive P, ESR: N/A (No labs - hospice) DM Control DM Control: Reviewed Insulin Dosing, Diabetic Medication: Has order for SS insulin and patients own Alogliptin 6.25 Cardiac Review BP, HR, EF%: Reviewed (HR and BP WNL) QTc Review QTc: Reviewed (472 from 08/23/24) IV to PO Switch IV Medications: Reviewed Home Meds Home Med List reviewed: Intervened Relevent Home Meds Not ordered & why?: Changed order for alogliptin to patients own. Called nurse to see if this could be brought in for the patient. Waiting to hear back. Per H+P some home meds continued per family/caregiver request that are not ENGINEERING DOCUMENT CONTROL CLERK meds. Current Meds Current Medication Order Review: Intervened Comments: Added 2nd PRN to prochlorperazine per pharmacy protocol Comments Comments/Follow Ups: Hospice Respite ENGINEERING DOCUMENT CONTROL CLERK - recently discharged on hospice 09/04/24
--- NOTE | 2024-09-10 11:15 | INITIAL_ITS ---
Date of service: 09/10/24 Time of Service: 11:15 Care Management Initial Assmt Initial Assessment Reason for Hospitalization: Hospice Respite Functional Status/Living Situation Patient Presentation: Ovidio was discharged home on hospice on 09/04. He returned to the ED yesterday with c/o increased left sided abdominal pain. Ovidio was sitting up in the bed when CM met with him today. His , Montse, and the hospice SW, Shoshana, were also present. Ovidio was pleasant with CM, he is know to CM from previous admissions. Ovidio is here on hospice respite. He will remain until 09/14. Yesterday, Ovidio had severe left sided pain. He described it as the worst pain I have ever felt. Montse did not know how to handle this at home. She did call hospice, and morphine and lorazepam were given, but it did not relieve his pain, he became loopy, and Montse did not feel that she is equipped to care for Ovidio. Montse is afraid to watch Ovidio . There was an episode in her past that has scarred her forever. Shoshana will be sending referrals to the [facility] contracted SNF's in the area. Montse feels that this is the best plan. Ovidio sat through the meeting, but did not really weigh in. CM asked Ovidio if he was ok with going to a SNF. He replied with, You want to send me to a longterm? He had missed the whole conversation and appeared heart broken. He stated that he was born in his house , and always thought that he would there. CM encouraged Ovidio and Montse to have a serious conversation. Town of Residence: [facility] Resides with: Spouse (Montse - common law ) Caregiver/Guardian: Montse Natural Supports: Montse is the only real support that Ovidio has. Now with hospice support Employment Status: Retired Instrumental Activities of Daily Living (ADLs): Requires support with Dishes/food prep, Groceries, Heat/Utilities, Laundry and Transportation Activities/Hobbies/SocialSupport: used to really enjoy being outside and doing all sorts of activities Medications Medication Management: No Issues/Barriers identified Physical Functioning/Mobility Assistive Device: has a cane and a walker, but doesn't depend on them. He utilizes furniture for stability at home. Advance Directives Advance Directives: Do you have an Advance Directive: Y 09/07/24 15:53 AD On File at [facility]: Y 09/07/24 15:53 Date Asked 09/09/24 09/09/24 13:13 AD Date Reviewed 09/03/24 09/07/24 15:53 COLST On File at [facility] Yes 09/07/24 15:53 COLST Date Scanned 08/30/24 09/07/24 15:53 Code Status Resuscitation Status DNR/DNI Insurance Coverage/Financial Issues Insurance: [facility] Team Visit Care Team Role Provider Type Maximino Lucero Primary Care Provider [facility] STAFF PHYSICIAN Shu Laurent MD Admit Provider [facility] STAFF PHYSICIAN Attending Provider Discharge Potential Discharge Needs: Other (Hospice f/u) Anticipated Barriers to Discharge: Bed availability Patient/Family Education Needs: Review discharge instructions, discuss Ask Me Three Transportation: Private vehicle (with Montse) Plan: Anticipate that Ovidio will discharge to a SNF on Thursday 09/14 with hospice supports vs returning home on hospice. Ovidio and Montse will be discussing the plan. CM will continue to follow. 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, right hand (Chronic) Rib fracture (Acute) BPH (benign prostatic hyperplasia) (Chronic) Abdominal aortic aneurysm (Chronic) Aortic aneurysm, thoracic (Acute) Closed rib fracture (Acute) Unsteady gait (Acute) Impaired instrumental activities of daily living (Acute) Left ankle sprain (Acute 05/03/24) Weight loss (Acute) Deficit in activities of daily living (ADL) (Acute) Hard of hearing (Acute) Financial difficulties (Acute) Palliative care patient (Acute) ACP (advance care planning) (Acute) Fracture of proximal end of left humerus (Acute ~02/06/24) Gout of left knee (Chronic) Trigger thumb of left hand (Acute) Acute kidney injury superimposed on CKD (Acute) Severe sepsis (Acute) Chronic kidney disease, stage 4 (severe) (Chronic) HTN (hypertension) (Chronic) CAD (coronary artery disease) (Chronic) Dermatitis (Acute) Atrial fibrillation (Chronic) Acute non-ST elevation myocardial infarction (NSTEMI) (Acute) Wound dehiscence, surgical (Acute) Type 2 diabetes mellitus (Chronic) Fatty liver (Acute) Mass of salivary gland (Acute) Ischemic cardiomyopathy (Chronic) Skin lesion of scalp (Acute) Anemia (Chronic) Hearing impairment (Acute) Medical History Chest pain Chronic kidney disease, stage 3 HLD (hyperlipidemia) Former smoker Balanitis Atrial flutter Edema Scandia's disease Phimosis (10/17/15) Erectile dysfunction AAA (abdominal aortic aneurysm) Renal insufficiency 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) Diverticulitis of large intestine with abscess Hypercholesterolemia Diabetes mellitus Myocardial infarct Phimosis Surgical History Status post colostomy takedown (~03/01/20) S/P left hemicolectomy (~07/19/18) H/O phimosis s/p repair History of heart artery stent S/P hernia repair History of endovascular stent graft for abdominal aortic aneurysm (AAA) Social History Smoking/Tobacco Use Status: Former Tobacco Use Quit Date: 01/03/17 Tobacco: How many years used: 60 Smoking risk assessment performed?: Yes Alcohol Intake: former Drug use: Never Substance use type: does not use Housing: house Do you feel safe at home: Yes Do you feel safe in your relationship?: Yes Additional Social history: at side Readmission Within the Past 30 Days Yes or No: Yes Date of First Admission Date of 1st Admission: 09/02/24 Date of this Admission Date of Admission: 09/09/24 Office Visit Since 1st Admission Have you seen your PCP in the office since discharge?: Yes Describe barriers for scheduling or getting an appointment: seen by hospice I. Interview patient and/or Family Difficulty reaching your doctor or getting an office appt?: No Have you had trouble purchasing/ or taking medication?: No Did you feel ready for discharge when you left the last time: Yes Were services received that you thought were set up on disch: Yes What services were received?: hospice Did you call your physician beore you came to the ED?: Yes Did your physician tell you to come in?: Yes How do you think you became sick enough to come back?: waited too long for pain meds If the patient had home care service Call them to discuss the patient's admission: Hospice was notified and went to the home yesterday. Seems that Montse had an experience in the past that makes her very frightened to see Ovidio dying. She stated that she does not feel equipped to care for Ovidio at home. ED visits How many ED visits in the past 12 months: 16 Assessment for Readmission Summary of readmission circumstances, based upon interviews: Caregiver fear and insecurity Anticipated HH Services Anticipated HH Services at Discharge [facility], [facility]osp[facility].
--- NOTE | 2024-09-10 14:33 | CHAPLAIN ---
Ovidio was sitting up in bed and Montse was with him. Ovidio said he's feeling better. They are trying to figure out next steps. Montse said they've talked about [facility] but Ovidio is not sure he wants to go there. According to Care Management notes, Montse is worried about caring for Ovidio after his episode with uncontrolled pain at home the other day. She is also worried about caring for Ovidio when he is actively dying, according to the notes. Ovidio lives in the house he grew up in and assumed he would there. Care Management encouraged them to talk about this.
[2024-09-10] MEDS: LORazepam 1 MG TAB PO ×2 (17:31→21:03)
[2024-09-10 19:55] VITALS: BP 131/59; PULSE 69; RESP 19; TEMP 37.3; O2SAT 92
[2024-09-11] MEDS: MORPHine Oral Solution 10 MG/5 ML CUP PO ×8 (00:35→18:30)
[2024-09-11 08:21] VITALS: BP 115/49; PULSE 67; RESP 18; TEMP 36.7; O2SAT 92
[2024-09-11] MEDS: Magnesium Oxide 400 MG TAB PO ×2 (08:23→20:11)
[2024-09-11] MEDS: Docusate Sodium 100 MG CAP PO (08:23)
[2024-09-11] MEDS: amLODIPine 2.5 MG TAB 5 MG PO (08:23)
[2024-09-11] MEDS: Acetaminophen 325 MG TAB 650 MG PO (11:51)
--- NOTE | 2024-09-11 12:07 | NUR.NOTE ---
Nursing Note: Took pt's caregiver/friend aside to discuss his care and plan going forward while waiting for Cinthia Goodman to call to speak to her, Trinity, directly. 20 minute inperson conversation about AAA progression, inoperable, the decision to go Hospice/treat pain and keep comfortable. Gave portable phone to Trinity when the call came through and gave privacy in the M/S waiting room.
[2024-09-11] MEDS: Lidocaine 2% Jelly 6 ML SYR (12:11)
--- NOTE | 2024-09-11 13:12 | NUR.NOTE ---
NURSING informed today by pT's , Do not use either blue or purple wipes on patient for care. Patient has had a skin reaction to them in the past.Nursing Note:
--- NOTE | 2024-09-11 13:50 | PDOC.CMPRO ---
Date of service: 09/11/24 Time of Service: 13:50 Care Management Progress Note Progress Note Text Progress Note Text: Ovidio was very uncomfortable this morning when CM visited with him and Montse. Ovidio stated that he could not lift his legs, and is feeling a lot of pain. He speech was soft, but clear. He did not appear his usual self. When asked about pain medication, Montse stated, look at him, he's had too much already. CM stated that comfort should really be the goal. Ovidio is on hospice, he has decided not to have treatment for his aneurysm, and he deserves to be comfortable. Montse wanted Ovidio to see a provider. CM talked with the RN. CM notified hospice of the situation. Hospice spoke to Montse on the phone, and more meds were given to Ovidio. He was sleeping and Montse was not present the next time that CM checked in. Social Determinants of Health Screening Will the Patient Participate in the Screening?: Unable to obtain
[2024-09-11] MEDS: LORazepam 1 MG TAB PO (14:32)
--- NOTE | 2024-09-11 14:54 | NUR.NOTE ---
Nursing Note: bathing wipes cannot be used on pt.
[2024-09-11] MEDS: HYDROmorphone 100 MG in CADD PUMP CASSETTE 1 EACH, Normal Saline 90 ML SC_INF (21:52)
[2024-09-12] MEDS: Scopolamine 1 MG/3 DAYS PATCH TD (08:32)
--- NOTE | 2024-09-12 09:07 | NUR.NOTE ---
Nursing Note: Friend of pt wanting to talk to nursing about pt's care. 15 minute conversation about change in medication to better control pain and keep comfortable. Friend reported understanding, but distress that this is happening at all. Will continue to support. Brought fluids and encouraged walking outside intermittently for fresh air.
--- NOTE | 2024-09-12 11:46 | PGE_ITS ---
Date of Service Date of service: 09/12/24 Time of Service: 11:15 Assessment and Plan Assessment and plan (1) Pain: Status: Acute Assessment and plan: much improved today compared to yesterday; Cesar was not tolerating oral morphine (taste and frequency), w/limited/no pain relief despite increasing doses/frequency; consented to SC CADD pump, started last night around 22:00 - stable on hydromorphone 0.8mg/hr dose since this morning; only requiring boluses w/repositioning x2 so far this morning - continue to uptitrate as needed per protocol - methylprednisolone 10mg BID started for suspected gout flair (2) Caregiver burden: Status: Acute Assessment and plan: Montse was not able to provide care to Cesar in home, panic w/onset of symptoms, initially in hospital for hospice respite w/plan for discharge to [place] after 5 days - Montse is struggling with her decision to not honor the promise she made to Cesar to keep him in his home through EOL - television picture tube rebuilder [facility] Medical Records Secretary called in 09/11/24 to provide support; visited today 09/12/24 as well - Recommend hospice provide BALL MILL OPERATOR/Medical Records Secretary support tomorrow, Friday09/13/24 for ongoing assessment for potential complicated grief (3) Gout due to renal impairment, right hand: Status: Chronic Assessment and plan: to start methylprednisolone 10mg BID IVP today, not able to tolerate PO prednisone - suspected gout flair (4) BPH (benign prostatic hyperplasia): Status: Chronic Assessment and plan: Brooke placed d/t urinary retention yesterday; initially drained 550mL - bag last emptied 22:00 09/11/24, 100mL in bag at 12:00 09/12/24 - demonstrating reduced renal function; renal failure (5) Abdominal aortic aneurysm: Status: Chronic Assessment and plan: w/potential rupture d/t sudden onset pain pain not managed on oral medications see above (6) Aortic aneurysm, thoracic: Status: Acute (7) Deficit in activities of daily living (ADL): Status: Acute Assessment and plan: fully dependent w/all ADLs at this time (8) Hospice care patient: Status: Acute Assessment and plan: Cesar was transitioning from respite to symptom management today d/t inability to tolerate oral meds, w/increasing symptom burden, worsening yesterday throughout the day Will remain under care of provider Aaron Goodman through Friday morning, f/u visit Friday order updates: IV access, hyosciamine, atropine, lorazepam IV, Reglan IV, methylprednisolone - most oral meds d/c'd, finger sticks d/c'd Sxs: pain, hiccups, restlessness - continue hydromorphone pump, start methylprednisolone - start lorazepam, Reglan d/t IV requirement for hiccups if lorazepam not effective (9) ACP (advance care planning): Status: Acute Assessment and plan: reviewed w/Montse life expectancy suspected to be hours to days; apnea periods, increased periods of sleep, reduced urine output; known AAA leak w/sxs consistent w/potential rupture; reviewed anticipated signs of EOL reviewed current POC, involving remaining in hospital for sxs management, will reassess daily; at this time, anticipate will remain in hospital for EOL, pending changes in status provided support on decision to bring him in for sxs management; reassurance to access for care encourage support w/her family/friends china painter as above Subjective Subjective Interval history since last seen: Cesar was brought into the hospital for hospice respite on 09/09, after friend/caregiver requesting additional support; Montse is at bedside today - he had been stable on and most of Friday - Friday Cesar had rapid onset increased pain, worsening throughout the day, despite increased med management Pain: pain worse in BLE on Friday, limiting ability to be repositioned or engage in care, even the lightest touch caused increased pain; additionally his RUE hand became red, swollen and increased pain in knuckles; per Montse recent gout flair in same hand; pain severe, crying yesterday in pain - yesterday morphine increased to 20mg q1h, with limited to no pain relief; Cesar agreed to a SC cadd pump for pain management and this was started last night around 22:00 - hydromorphone 0.8mg/hr for a few hours w/good relief on pain, sleeping comfortably, less agitation/grimace/groan; has required 2 boluses this morning, prior to repositioning Resp: periods of apnea, started last night; difficult to assess length d/t constant hiccups, starting overnight. increased breath rattle noted, scopolamine patch placed this morning. Activity: no meaningful activity today, eyes intermittently opening, mostly w/repositioning. was engaging last night. today increased restlessness in legs, twitching BLE predominately, occasional full body PO Intake: no oral intake today, light sips of water. did have nibbles of breakfast and lunch yesterday, no dinner d/t sleeping Urine: brooke placed yesterday w/550mL relieved, continued w/urine output w/decreased rate throughout the day, now less than 100mLs in bag, last emptied around 14 hours ago Bowels: no BM since arrival Psych: yesterday and day before quite upset he was in the hospital, wanted to be home. grumpy, agitated. did receive a few oral doses of lorazepam w/some effect; stated to staff yesterday Why is this happening to me; Montse has been struggling with her decision to have Cesar brought into hosp ital and not stay home, where she promised she would keep him through EOL; as soon as his increased pain started she knew she could not do take care of him in home, started to panic - yesterday this provider spoke to her on the phone for 30m to provide comfort and reassurance - today she is more comfortable with current decision; - she was able to go play Bingo with friends last night, spoke to her sister yesterday afternoon; friends are stepping in to help her - of note, it does appear she has a trauma history which may be influencing her reactions currently - dog in home also w/end stage disease ACP: Cesar was adamant he did not want an IV yesterday, which was part of why it was delayed to start a pump on him, however he was not tolerating oral morphine taste either, he agreed to an SC pump for pain management - while he did not want an IV, Montse consents to one for sxs management today - current plan was to consider discharge to [place] once respite time was over on 09/14, however at this time Cesar is transitioning to symptom management d/t inability to tolerate oral meds and requiring IV medications Exam Narrative Exam Narrative: General: older adult male, lying in bed, eyes intermittently open looking up, no meaningful eye contact/tracking HEENT: normocephalic, atraumatic Resp: resp irregular w/periods of apnea f/b deep breaths, hiccups persistent and occurring every 5-10s; weak cough w/resp audible resp secretions; LS limited to anterior/lateral CTA, diminished Card: RRR; radial pulse 2+, DP pulses 1+ BLE GI: BS active all 4 quadrants, soft : 100mL dark urine in brooke bag Ext: warm, trace BLE edema; RUE hand erythemic, swollen; LUE WNL; BLE intermittent movement/restlessness Objective Last Vital Signs Temp 98.1 F 09/11/24 08:21 Pulse 67 09/11/24 08:21 Resp 18 09/11/24 08:21 BP 115/49 L 09/11/24 08:21 Pulse Ox 92 09/11/24 08:21 Time Spent with Patient Time Spent with Patient: 25-34 minutes Time was spent: preparing to see the patient(eg.review tests), obtaining and/or reviewing separately otained hiistory, ordering medications,tests, procedures, referring, communicating with other health health care manager, counseling the patient and care coordination
--- NOTE | 2024-09-12 12:06 | CHAPLAIN ---
I was called in yesterday (09/11) to visit Ovidio and followed up with a visit today. Today I mainly provide support for Montse as Ovidio is less responsive. Cinthia Goodman NP, from Hospice is here today dealing with symptom management issues. I offered a prayer with Ovidio before leaveing today.
[2024-09-12] MEDS: HYDROmorphone 100 MG in CADD PUMP CASSETTE 1 EACH, Normal Saline 90 ML SC_INF (12:59)
[2024-09-12] MEDS: Metoclopramide 10 MG/2 ML VIAL IVP (13:24)
[2024-09-12 13:27] VITALS: RESP 16
[2024-09-12] MEDS: methylPREDNISolone SUCC 40 MG VIAL 10 MG IVP (13:53)
[2024-09-12] MEDS: LORazepam 20 MG/10 ML VIAL IV/SC (13:58)
[2024-09-12] MEDS: Atropine 1% Ophth Sol. 2 ML BTL SL ×2 (13:58→17:35)
--- NOTE | 2024-09-12 16:01 | PDOC.CMPRO ---
Date of service: 09/12/24 Time of Service: 16:01 Care Management Progress Note Progress Note Text Progress Note Text: CM has checked on Ovidio and Montse a few times today. Ovidio was struggling with hiccups earlier today, and also seems to have had a decline since yesterday. Ovidio is now on a hydromorphone drip, and appears comfortable. He is not responsive to my voice or touch today. Montse seems to have a little better handle on things today. She has spoken with the hospice provider, the fruit worker, therapeutic support staff and CM. She stated to CM that she just wasn't ready for things to decline so quickly, and doesn't like being home alone. CM offered supportive,active listening. Discharge Plan: It now appears that Ovidio will remain at [facility] through the end of life. Ovidio will continue to supported to maintain his comfort. Montse will also continue to be supported. CM will continue to follow. Social Determinants of Health Screening Will the Patient Participate in the Screening?: Unable to obtain
[2024-09-12 17:37] VITALS: RESP 10
--- NOTE | 2024-09-12 17:47 | NUR.NOTE ---
assumed care of patient this afternoon for Ngozi CREATIVE ASSISTANT. Patient has been noticeably comfortable on the CADD pump with basal rate of 0.8mg/hour of hydromorphone. Given occasional bolus doses of 0.4mg when needed for turns/painful stimuli. Peripheral IV started to aid in administration of IV medications for symptom management. Pt given reglan with no resolve for hiccups, given IV lorazepam with good affect. Patient on turns Q2 hours along with oral care, brooke to gravity and put out 125cc for shift. Respirations apneic at times and rate around 10 breathes/min. Given atropine x2 for wet cough to prevent secretion build up. Carry In Worker Rosy has gone home to rest. Pt sleeping comfortably. Bed low/locked, call montanez in reach. Nursing Note:
[2024-09-13] MEDS: methylPREDNISolone SUCC 40 MG VIAL 10 MG IVP ×2 (00:59→12:47)
[2024-09-13] MEDS: Normal Saline Flush 10 ML SYR IVP ×4 (01:00→20:50)
[2024-09-13] MEDS: LORazepam 1 MG TAB PO ×3 (10:05→17:14)
--- NOTE | 2024-09-13 10:13 | PGE_ITS ---
Date of Service Date of service: 09/13/24 Time of Service: 09:30 Assessment and Plan Assessment and plan (1) Pain: Status: Acute Assessment and plan: continue hydromorphone SC CADD - increase to 1mg/hr today; bolus now, increased bolus parameters to 0.4-1mg q15m PRN continue to bolus prior to any personal care or repositioning continues w/increased pain w/light interventions (2) Caregiver burden: Status: Acute Assessment and plan: Montse is more comfortable today w/decision to remain in hospital recommend mix house tender/ACCOUNT MANAGER EDUCATION today [facility] Social Media Coordinator over the weekend, not avail today (3) Gout due to renal impairment, right hand: Status: Chronic Assessment and plan: continue methylprednisolone 10mg BID IVP today - suspected gout flair (4) Abdominal aortic aneurysm: Status: Chronic Assessment and plan: w/potential rupture d/t sudden onset pain pain not managed on oral medications see above (5) Aortic aneurysm, thoracic: Status: Acute (6) Deficit in activities of daily living (ADL): Status: Acute Assessment and plan: fully dependent w/all ADLs at this time (7) Hospice care patient: Status: Acute Assessment and plan: Cesar will remain on symptom management today; unable to tolerate oral meds, requiring increased doses of hydromorphone and lorazepam; Will remain under care of provider Aaron Goodman through Friday, f/u visit Friday order updates: increase hydromorphone basal and bolus; lorazepam for hiccups Sxs: pain, hiccups, restlessness - continue hydromorphone pump, methylprednisolone - lorazepam, Reglan d/t IV requirement for hiccups if lorazepam not effective (8) ACP (advance care planning): Status: Acute Assessment and plan: reviewed w/Montse life expectancy suspected to be hours to days; apnea periods, increased periods of sleep, reduced urine output; known AAA leak w/sxs consistent w/potential rupture; reviewed current POC, involving remaining in hospital for sxs management, will reassess daily; at this time, anticipate will remain in hospital for EOL, pending changes in status reviewed jury duty exception, hospice to provide letter of exemption; contacted hospice for appropriate letter; Montse previous in contact w/hospice ACCOUNT MANAGER EDUCATION, recommend visit today Subjective Subjective Interval history since last seen: Cesar remains hospitalized at [facility] on hospice for symptom management; folder inspector/friend Montse at bedside Pain: has remained on hydromorphone 0.8mg/hr SC cadd, increased pain noted this morning, plan to increase now. pain worse w/repositioning, will grimace, groan, call out, wince; continue to bolus before repositioning, has had a few boluses today - methylprednisolone 10mg BID started yesterday, reduced hand swelling/redness noted today Resp: hiccups relieved w/IV lorazepam today; no hiccups noted until this morning, currently does have hiccups, less often compared to yesterday; less periods of apnea noted today, less coughing; does have periods of shallow to deep respirations Activity: currently a little restless, legs require repositioning to remain appropriately in bed. body twitches intermittent, less compared to yesterday; intermittently opening eyes today, did say good morning to nurse this morning. otherwise no meaningful communication PO Intake: no oral intake yesterday or today Urine: 125mL in 24 hours Bowels: BM yesterday, moderately sized Social: Montse got jury duty notice, requesting a letter of exception Exam Narrative Exam Narrative: General: older adult male, lying in bed, eyes intermittently open looking up, no meaningful eye contact/tracking, increased eye opening today; grimace/groan w/limited leg repositioning HEENT: normocephalic, atraumatic Resp: resp irregular w/periods of shallow to deep breaths, RR around 10/m; hiccups occuring every 15-20s; no cough; LS limited to anterior/lateral CTA, diminished Card: RRR; radial pulse 2+, DP pulses 1+ BLE GI: BS hypoactive all 4 quadrants, soft Ext: warm, trace BLE edema; RUE hand 2+ edema, less erythema compared to yesterday; LUE WNL; BLE intermittent movement/restlessness Objective Last Vital Signs Temp 98.1 F 09/11/24 08:21 Pulse 67 09/11/24 08:21 Resp 10 L 09/12/24 17:37 BP 115/49 L 09/11/24 08:21 Pulse Ox 92 09/11/24 08:21 Time Spent with Patient Time Spent with Patient: 25-34 minutes Time was spent: preparing to see the patient(eg.review tests), obtaining and/or reviewing separately otained hiistory, ordering medications,tests, procedures, referring, communicating with other health health care legal assistant, counseling the patient and care coordination
--- NOTE | 2024-09-13 16:09 | PDOC.CMPRO ---
Date of service: 09/13/24 Time of Service: 16:09 Care Management Progress Note Progress Note Text Progress Note Text: CM has visited with Ovidio x 2 today. Stayed to speak with him softly. He did not respond to voice or touch today. Montse had been in earlier in the day, per the hospice provider, but CM has not met with Montse. Discharge Plan: Ovidio will remain at [facility] through the end of his life. He will continue to be supported to maintain his comfort. Montse will also continue to be supported. ELVIN will continue to follow. Social Determinants of Health Screening Will the Patient Participate in the Screening?: Unable to obtain
--- NOTE | 2024-09-13 16:32 | NUR.NOTE ---
Nursing Note: Rn recieved verbal order to renew PRN Ativan 0.5-1mg Q1H for anxiety/ aggitation, and to give more frequent bolus of 1mg q15 of dilauded for pain. FIDE SANDERS
[2024-09-13] MEDS: Atropine 1% Ophth Sol. 2 ML BTL SL (20:48)
[2024-09-13] MEDS: Metoclopramide 10 MG/2 ML VIAL IVP (20:49)
[2024-09-13] MEDS: LORazepam 20 MG/10 ML VIAL IV/SC (20:50)
[2024-09-14] MEDS: Atropine 1% Ophth Sol. 2 ML BTL SL ×2 (01:00→05:04)
[2024-09-14] MEDS: Metoclopramide 10 MG/2 ML VIAL IVP (01:00)
[2024-09-14] MEDS: Normal Saline Flush 10 ML SYR IVP ×5 (01:01→21:55)
[2024-09-14] MEDS: methylPREDNISolone SUCC 40 MG VIAL 10 MG IVP (01:01)
[2024-09-14] MEDS: LORazepam 20 MG/10 ML VIAL IV/SC ×6 (01:02→21:55)
--- NOTE | 2024-09-14 08:44 | PDOC.CMPRO ---
Date of service: 09/14/24 Time of Service: 08:44 Care Management Progress Note Progress Note Text Progress Note Text: Cesar was resting comfortably in his bed when CM checked in on him. There were no visitors in the room at the time, but per report, Montse has been coming in regularly. Per report, he will remain at [facility] for end of life care. CM will continue to support Ovidio and his family during this difficult time. Discharge Plan: Ovidio will remain at [facility] through the end of his life. He will continue to be supported to maintain his comfort. Montse will also continue to be supported. CM will continue to follow. Social Determinants of Health Screening Will the Patient Participate in the Screening?: Unable to obtain
[2024-09-14] MEDS: LORazepam 1 MG TAB PO (09:55)
--- NOTE | 2024-09-14 11:21 | PGE_ITS ---
Date of Service Date of service: 09/14/24 Time of Service: 11:21 Assessment and Plan Assessment and plan (1) Pain: Status: Acute Assessment and plan: continue hydromorphone SC CADD Current basal rate is 1.6 mg/hr with range of 1.6-3. Current bolus dose is 1 mg q15m PRN with range of 1-3 mg. Continue to bolus prior to any personal care or repositioning (2) Caregiver burden: Status: Acute Assessment and plan: Montse is comfortable w/decision to remain in hospital (3) Gout due to renal impairment, right hand: Status: Chronic Assessment and plan: He was on methylprednisolone 10mg BID IVP for suspected gout flair. Will discontinue in the setting of him being unresponsive and appearing comfortable. (4) Abdominal aortic aneurysm: Status: Chronic Assessment and plan: w/potential rupture d/t sudden onset pain pain not managed on oral medications, he is requiring CADD pump as well as IV lorazepam PRN. see above (5) Aortic aneurysm, thoracic: Status: Acute (6) Deficit in activities of daily living (ADL): Status: Acute Assessment and plan: Unresponsive and fully dependent w/all ADLs at this time (7) Hospice care patient: Status: Acute Assessment and plan: Cesar remains on symptom management today; unable to tolerate oral meds, has not taken anything by mouth x2 days, requiring increased doses of hydromorphone and IV lorazepam, he appears to be actively dying. Order updates: increase hydromorphone basal and bolus ranges. Continue lorazepam for hiccups, he has scop patch on in the setting of increased respiratory secretions, adding IV robinul today. Discontinue steroids. Discontinue all PO medications. Sxs: pain, hiccups, restlessness, increased respiratory secretions. - continue hydromorphone pump, d/c methylprednisolone - lorazepam, Reglan d/t IV requirement for hiccups if lorazepam not effective (8) ACP (advance care planning): Status: Acute Assessment and plan: reviewed w/Montse life expectancy suspected to be hours to days; apnea periods, increased periods of sleep, reduced urine output; known AAA leak w/sxs consistent w/potential rupture; reviewed current POC, involving remaining in hospital for sxs management, will reassess daily; at this time, anticipate will remain in hospital for EOL as he appears to be actively dying, he is unresponsive. Hospice to see daily. Subjective Subjective Interval history since last seen: Cesar was seen for Hospice Sx management. He is on a hydromorphone pump at 1.6 mg/hr, bolus 1 mg q15mg. So far he has received one bolus today. He had received one dose of lorazepam prior to my visit but Montse reports that the hiccups returned so his nurse was bringing another dose of IV lorazepam. He also has increased respiratory secretions and has a scop patch in place. IV robinul added for PRN use. He is not able to take anything by mouth. He has not had anything PO x2 days. PO medications discontinued today. No BM x2 days. He has decreased urinary output. His urine is dark with minimal output. He does not have any skin issues. He did not respond to stimuli at all during the visit. Exam Narrative Exam Narrative: General: older adult male, lying in bed, eyes closed, nonresponsive. HEENT: normocephalic, atraumatic, mm dry. Resp: resp irregular w/periods of shallow to deep breaths, RR around 10/m; + hiccups, occasional congested cough. Lung sounds are diminished on limited anterior and lateral exam. Cardiovascular:heart sounds regular. GI: abd soft, nondistended, hypoactive bowel sounds. Ext: warm, wrinkled skin where edema has decreased. Objective Last Vital Signs Temp 36.7 C 09/11/24 08:21 Pulse 67 09/11/24 08:21 Resp 10 L 09/12/24 17:37 BP 115/49 L 09/11/24 08:21 Pulse Ox 92 09/11/24 08:21 Time Spent with Patient Time Spent with Patient: >50 minutes Time was spent: preparing to see the patient(eg.review tests), obtaining and/or reviewing separately otained hiistory, ordering medications,tests, procedures, referring, communicating with other health home care and home health aides teacher and care coordination
[2024-09-14] MEDS: Glycopyrrolate 0.2 MG/1 ML VIAL IVP ×2 (13:47→16:56)
--- NOTE | 2024-09-14 16:12 | AC.ASSESS ---
Asthma Clinic Visit
--- NOTE | 2024-09-14 16:12 | CHAPLAIN ---
I checked in with Montse this morning. She is in agreement with having Ovidio stay here for end of life care. His hiccups had started again when I visited and when Rose Marie Walsh, HOSPITALIST PROGRAM DIRECTOR from Hospice came in she let Rose Marie know about the hiccups. Ovidio seems comfortable other than that. According to Rose Marie's notes, Ovidio is actively dying and has days to weeks to live. Montse continues to spend much of the day with Ovidio. There haven't been other visitors. Ovidio is estranged from his four children. I will continue to visit.
[2024-09-15] MEDS: HYDROmorphone 200 MG in CADD PUMP CASSETTE 1 EACH, Normal Saline 80 ML SC_INF (01:43)
[2024-09-15] MEDS: LORazepam 20 MG/10 ML VIAL IV/SC ×2 (01:56→03:32)
[2024-09-15] MEDS: Normal Saline Flush 10 ML SYR IVP ×2 (01:56→02:20)
[2024-09-15] MEDS: Glycopyrrolate 0.2 MG/1 ML VIAL IVP (02:20)
--- NOTE | 2024-09-15 12:35 | EXPE_ITS ---
Date of service: 09/15/24 Time of Service: 12:35 Discharge Plan Disposition Patient Disposition: Discharge Details Reason For Visit: respite Admit Date/Time: 09/09/24 14:02 Admit Provider: Shu Laurent Attending Provider: Shu Laurent [facility]: Cesar was an 88 year old man who was recently admitted to hospice service for AAA. He was home with his significant other when he developed severe back pain. This was thought to be related to the AAA. He had RN and provider visit at home. His symptoms appeared to be managed, however, his caregiver did not feel like she could continue to care for him at that time. Respite was offered and he was admitted on 09/09/24 with a plan to return home or to an alternative living situation after 5 nights. Cesar went on to develop severe pain again that was thought to be related to the AAA leak/rupture. He was changed to Hospice Sx management and started on a pump for pain management. He was unable to take anything PO, including medications. He required IV medications to maintain comfort. He became unresponsive and on 09/15/24. Discharge Data Discharge Date/Time-TO BE ENTERED AT DEPARTURE: 09/15/24 06:11 Discharge Sum: Prov Provider Consults: 09/09/24 14:18 Api Architect Consult [CONS] Routine Consultation Status:: Follow-up needed Clarification:: Manage/follow per spec. Reason for consult:: Hospice patient Discharge Sum: Diag Contributing Factors (1) Pain: (2) Caregiver burden: (3) Gout due to renal impairment, right hand: (4) Abdominal aortic aneurysm: (5) Aortic aneurysm, thoracic: (6) Deficit in activities of daily living (ADL): (7) Hospice care patient: (8) ACP (advance care planning):
== END 2024-09-15 06:11 | disposition expired | DRG 299 ==
PROVIDERS: Admitting Provider Family Medicine; PCP Student in an Organized Health Care Education/Training Program; Visit Provider Family Medicine
DX: I71.33 Infrarenal abdominal aortic aneurysm, ruptured (principal); K68.12 Psoas muscle abscess; N18.4 Chronic kidney disease, stage 4 (severe); T82.390A Other mechanical complication of aortic (bifurcation) graft (replacement), initial encounter; R10.9 Unspecified abdominal pain; Z75.5 Holiday relief care; Z51.5 Encounter for palliative care; I25.10 Atherosclerotic heart disease of native coronary artery without angina pectoris; I12.9 Hypertensive chronic kidney disease with stage 1 through stage 4 chronic kidney disease, or unspecified chronic kidney disease; I48.0 Paroxysmal atrial fibrillation; I25.5 Ischemic cardiomyopathy; N40.0 Benign prostatic hyperplasia without lower urinary tract symptoms; E11.22 Type 2 diabetes mellitus with diabetic chronic kidney disease; Z79.4 Long term (current) use of insulin; M1A.3410 Chronic gout due to renal impairment, right hand, without tophus (tophi); I71.21 Aneurysm of the ascending aorta, without rupture; Z66 Do not resuscitate
CPT/HCPCS: 00123; J1171; J1596; J1815; J2060; J2765; J2919